=== PATIENT | male | born 1935 | race Caucasian/White ===

== ENCOUNTER 2023-04-11 09:00 | Outpatient (OUT) | payer MEDICARE, SELFPAY ==
[2023-04-11 09:05] VITALS: BP 134/82; PULSE 68; RESP 18; TEMP 36.7; O2SAT 100
[2023-04-11] MEDS: MITOMYCIN 40 MG in WATER FOR INJECTION,STERILE 20 ML 20 MG INTRAVESIC (09:16)
--- NOTE | 2023-04-11 09:40 | PC.NURSE ---
0905: Patient is here for Mitomycin instillation, he has tolerated these well in the past and denies any concerns or issues today. 0930: Mitomycin instilled and tolerated Saldaña cath insertion well without difficulty. Will have patient turn every 15 minutes as ordered.
[2023-04-11 11:27] VITALS: BP 165/81; PULSE 68; RESP 18; O2SAT 98
--- NOTE | 2023-04-11 11:28 | PC.NURSE ---
Patient tolerated mitomycin well without any complaints. Saldaña cath was removed without difficulty. Vitals obtained and stable. Patient discharged home.
== END 2023-04-11 11:28 | disposition home or self-care (01) ==
LOC: INF 05-09 15:15
PROVIDERS: PCP Internal Medicine; Visit Provider Urology
DX: Z85.51 Personal history of malignant neoplasm of bladder (principal)
CPT/HCPCS: 51700; 51702; J9280

== ENCOUNTER 2023-04-22 03:27 | Emergency (ER) | payer MEDICARE, SELFPAY ==
[2023-04-22] VITALS (39 sets, daily range): BP systolic 122–172; BP diastolic 67–94; PULSE 61–85; RESP 0–25; O2SAT 90–100; BMI 26.4
--- NOTE | 2023-04-22 03:37 | ED_ITS ---
HPI - Chest Pain General Chief Complaint: Chest Pain Stated Complaint: chest pain Time Seen by Provider: 04/22/23 03:33 History of Present Illness HPI narrative: patient presents complaining of chest pain that started around 3pm. Denies history of heart disease. No associated nausea or dyspnea. Drove himself to the hospital. no diaphoresis or light headiness. States pain 02/27 complaint: Reports chest pain Related Data Home Medications Medication Instructions Recorded Confirmed losartan 25 mg tablet 25 mg PO DAILY 04/22/23 04/22/23 tamsulosin 0.4 mg capsule 0.4 mg PO DAILY 04/22/23 04/22/23 terbinafine HCl 250 mg tablet 250 mg PO DAILY 04/22/23 04/22/23 Allergies Allergy/AdvReac Type Severity Reaction Status Date / Time No Known Drug Allergies Allergy Verified 04/22/23 03:34 Review of Systems ROS Status of ROS 10 or more systems reviewed and unremarkable except as noted in history and below Cardiovascular Reports: chest pain [facility] Medical History (Updated 04/22/23 @ 05:49 by José Manuel Hayes MD) Surgical History (Updated 04/22/23 @ 04:00 by Dhaval Callejas) Exam Constitutional Vital Signs - 24 hr 04/22/23 03:30 04/22/23 03:28 04/22/23 03:34 Pulse Rate 75 67 Pulse Rate [Monitor] 73 Respiratory Rate 12 13 12 Blood Pressure 172/87 H 163/85 H Blood Pressure [Left Arm] 172/87 H Pulse Oximetry 100 Oxygen Delivery Method Room Air 04/22/23 03:41 04/22/23 03:50 04/22/23 03:51 Pulse Rate 69 75 83 Pulse Rate [Monitor] Respiratory Rate 15 13 18 Blood Pressure 145/77 H Blood Pressure [Left Arm] Pulse Oximetry 100 Oxygen Delivery Method 04/22/23 04:01 04/22/23 04:11 04/22/23 04:20 Pulse Rate 85 70 67 Pulse Rate [Monitor] Respiratory Rate 20 14 7 L Blood Pressure 140/82 H 158/87 H 147/82 H Blood Pressure [Left Arm] Pulse Oximetry Oxygen Delivery Method 04/22/23 04:30 04/22/23 04:40 04/22/23 04:50 Pulse Rate 63 66 63 Pulse Rate [Monitor] Respiratory Rate 0 L 7 L 17 Blood Pressure 144/80 H 133/71 H 122/70 H Blood Pressure [Left Arm] Pulse Oximetry Oxygen Delivery Method 04/22/23 05:00 04/22/23 05:10 04/22/23 05:20 Pulse Rate 61 62 68 Pulse Rate [Monitor] Respiratory Rate 16 4 L 22 Blood Pressure 130/72 H 133/73 H 132/71 H Blood Pressure [Left Arm] Pulse Oximetry Oxygen Delivery Method 04/22/23 05:30 Pulse Rate 72 Pulse Rate [Monitor] Respiratory Rate 15 Blood Pressure 140/69 H Blood Pressure [Left Arm] Pulse Oximetry Oxygen Delivery Method Common normals: no apparent distress, oriented x3, no limitations, healthy appearing, alert and well nourished [facility] Common normals: normocephalic and head/scalp atraumatic Eye Common normals: EOMs intact bilaterally and conjunctivae normal Respiratory Common normals: normal respiratory effort, no retractions, no use of accessory muscles and clear to auscultation bilaterally Cardio Common normals: regular rate, regular rhythm, S1 normal heart sound and S2 normal heart sound GI Common normals: Normal to inspection, nondistended, normoactive bowel sounds present, soft to palpation and non-tender Extremity Common normals: normal to inspection and full ROM Neuro Common normals: oriented x3, CN's II-XII intact bilaterally, moves all extremities and no focal motor deficits Psych Appearance: grossly normal Course Vital Signs Vital signs: Vital Signs Pulse Rate 75 04/22/23 03:28 Respiratory Rate 13 04/22/23 03:28 Blood Pressure 172/87 H 04/22/23 03:28 Pulse Rate 72 04/22/23 05:30 Respiratory Rate 15 04/22/23 05:30 Blood Pressure 140/69 H 04/22/23 05:30 Pulse Oximetry 100 04/22/23 03:41 Oxygen Delivery Method Room Air 04/22/23 03:30 MDM - Chest Pain MDM Narrative Medical decision making narrative: patient presents complaining of chest pain. States pain started around 3AM. Pain not associated with nausea, dyspnea or diaphoresis. He drove himself to the hospital because he was not getting better. Denies past history of CAD. pain 02/27. EKG with early repolarization changes II,III,AvF. Did compare to EKG from 2019. EKG demonstrated changes of early repolarization in exact same leads but more prominent now on new EKG. More subtle older EKG. Pain treated with NTG SL x1 and morphine and improved. First troponin returned elevated. ASA and heparin bolus and gtt ordered. Discussed with hospitalist at [facility] and patient is accepted for admission patient and his son informed of the results and transfer plan Lab Data Labs: Lab Results 04/22/23 Range/Units 03:31 WBC 6.7 (4.0-11.0) 10^3/uL RBC 4.82 (4.70-6.10) 10^6/uL Hgb 14.3 (14.0-18.0) g/dL Hct 43.8 (42.0-54.0) % MCV 90.9 (80.0-94.0) fL MCH 29.7 (25.9-34.0) pg MCHC 32.6 (29.9-35.2) g/dL RDW 12.9 (11.0-15.0) % Plt Count 235 (150-450) 10^3/uL MPV 9.3 L (9.5-13.5) fL Neut % (Auto) 40.0 L (43.0-75.0) % Lymph % (Auto) 36.6 (20.5-60.0) % [place] % (Auto) 14.3 H (1.7-12.0) % Eos % (Auto) 8.2 H (0.9-7.0) % Baso % (Auto) 0.6 (0.2-2.0) % Neut # (Auto) 2.7 (1.4-6.5) 10^3/uL Lymph # (Auto) 2.5 (1.2-3.8) 10^3/uL [place] # (Auto) 1.0 H (0.3-0.8) 10^3/uL Eos # (Auto) 0.6 (0.0-0.7) 10^3/uL Baso # (Auto) 0.0 (0.0-0.1) 10^3/uL Abs Immat Gran (auto) 0.02 (0.00-0.03) 10^3/uL Imm/Tot Granulo (auto) 0.3 (0.0-0.5) % PT 10.2 (9.0-11.6) sec INR 0.96 APTT 27.0 (22.3-36.2) sec D-Dimer 0.32 (<=0.59) mg/L FEU Sodium 140 (136-145) mmol/L Potassium 4.0 (3.5-5.1) mmol/L Chloride 104 (98-107) mmol/L Carbon Dioxide 23.7 (21.0-32.0) mmol/L Anion Gap 16.3 BUN 33.0 H (7.0-18.0) mg/dL Creatinine 1.33 H (0.70-1.30) mg/dL Est GFR ( Amer) >60 (>=60) Est GFR (Non-Af Amer) 51 L (>=60) BUN/Creatinine Ratio 24.8 Glucose 97 (74-106) mg/dL Calcium 9.2 (8.5-10.1) mg/dL Troponin I High Sens 643.5 H* (4.0-76.1) pg/mL NT-Pro-B Natriuret Pep 132.0 (<=1800.0) pg/mL Ethanol Quant <3 mg/dL Discharge Plan Discharge Chief Complaint: Chest Pain Clinical Impression: Non-ST elevation (NSTEMI) myocardial infarction Patient Disposition: Xfer Acute Care Hospital Discharge Location: [facility] Discharge location: [facility] Mode of Transportation: EMS
--- NOTE | 2023-04-22 03:39 | XR_ITS ---
The [address] [address] Patient Name: JANIE KONG MRN: [id number] date: 1935 Sex: M Assigned Patient Location: ED.MAIN Current Patient Location: ED.MAIN Accession/Order Number: [id number] Exam Date: 04/22/2023 04:00 Report Date: 04/22/2023 05:37 At the request of: ELIAZAR CASTLE Procedure: XR chest 1V EXAM: XR chest 1V HISTORY: chest pain COMPARISON: 06/02/2020. TECHNIQUE: Chest X-ray, 1 view. FINDINGS: Support devices: None. Lungs/pleura: No radiographic evidence of edema or infiltrate. No consolidation, effusion, or pneumothorax. Heart and mediastinum: Stable contours compared to prior examination. Bones: No acute abnormality identified. Bilateral osteoarthritis of the glenohumeral joints. IMPRESSION: No active disease. Electronically authenticated by: NAUN ARNOLD Date: 04/22/2023 05:37
--- NOTE | 2023-04-22 03:39 | ECG_ITS ---
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
[2023-04-22] MEDS: MORPHINE SULFATE 4 MG/ML VIAL IV (04:04)
[2023-04-22] MEDS: NITROGLYCERIN 0.4 MG TAB.SUBL PO (04:04)
--- NOTE | 2023-04-22 04:04 | PC.NURSE ---
patient drove himself into the ambulance bay stated he was having a heart attack. patient placed in room 4. Vitals obtained, iv started with labs drawn, ekg obtained and physician notified. patient became upset with the BP cuff and took it off. He said he took it off be its to tight and thats not how it is supposed to work. when Xray arrived patient called out and is upset states im not getting the right attention, someone told me this was a [facility] you guys cant help me he requested his cell phone to call someone to take him to [place]. patient was handed phone and nurse left the room.
[2023-04-22 04:26] LABS: Basophils Percent Auto 0.6 % (0.2-2.0); Eosinophils Absolute Auto 0.6 10^3/uL (0.0-0.7); Eosinophils Percent Auto 8.2 % (0.9-7.0); Hematocrit 43.8 % (42.0-54.0); Hemoglobin 14.3 g/dL (14.0-18.0); Immature Granulocytes Abs Auto 0.02 10^3/uL (0.00-0.03); Immature Granulocytes Pct Auto 0.3 % (0.0-0.5); Lymphocytes Absolute Auto 2.5 10^3/uL (1.2-3.8); Lymphocytes Percent Auto 36.6 % (20.5-60.0); Mean Corpuscular HGB Conc 32.6 g/dL (29.9-35.2); Mean Corpuscular Hemoglobin 29.7 pg (25.9-34.0); Mean Corpuscular Volume 90.9 fL (80.0-94.0); Mean Platelet Volume 9.3 fL (9.5-13.5); Monocytes Percent Auto 14.3 % (1.7-12.0); Neutrophils Absolute Auto 2.7 10^3/uL (1.4-6.5); Platelet Count 235 10^3/uL (150-450); Red Blood Count 4.82 10^6/uL (4.70-6.10); Red Cell Distribution Width 12.9 % (11.0-15.0); White Blood Count 6.7 10^3/uL (4.0-11.0)
[2023-04-22 04:45] LABS: Anion Gap 16.3; BUN Creatinine Ratio 24.8; Calcium 9.2 mg/dL (8.5-10.1); Carbon Dioxide 23.7 mmol/L (21.0-32.0); Chloride 104 mmol/L (98-107); Estimated GFR (African America >60 (>=60); Estimated GFR (Non-African Ame 51 (>=60); Glucose 97 mg/dL (74-106); Sodium 140 mmol/L (136-145)
[2023-04-22 04:47] LABS: Ethanol <3 mg/dL
[2023-04-22 04:48] LABS: Troponin I High Sensitivity 643.5 pg/mL (4.0-76.1)
[2023-04-22 04:51] LABS: D Dimer 0.32 mg/L FEU (<=0.59)
[2023-04-22 05:21] LABS: INR 0.96; Prothrombin Time 10.2 sec (9.0-11.6)
[2023-04-22] MEDS: HEPARIN SODIUM (PORCINE) 5,000 UNIT/ML VIAL 3300 UNIT IV (05:21)
[2023-04-22] MEDS: HEPARIN SODIUM,PORCINE/D5W 25,000 UNIT/500 ML IV.SOLN 20.031 UNIT IV (05:22)
== END 2023-04-22 09:37 | disposition short-term general hospital (02) ==
PROVIDERS: Emergency Provider Internal Medicine; PCP Internal Medicine
DX: I21.4 Non-ST elevation (NSTEMI) myocardial infarction (principal); Z79.899 Other long term (current) drug therapy
CPT/HCPCS: 36415; 71045; 80048; 80320; 83880; 84484; 85025; 85378; 85610; 85730; 93005; 96374; 96375; 99285

== ENCOUNTER 2023-07-09 06:42 | Outpatient (OUT) | payer MEDICARE, SELFPAY ==
[2023-07-09 07:31] LABS: Basophils Absolute Auto 0.1 10^3/uL (0.0-0.1); Basophils Percent Auto 0.9 % (0.2-2.0); Eosinophils Absolute Auto 0.4 10^3/uL (0.0-0.7); Eosinophils Percent Auto 7.6 % (0.9-7.0); Hematocrit 39.1 % (42.0-54.0); Hemoglobin 12.8 g/dL (14.0-18.0); Immature Granulocytes Abs Auto 0.01 10^3/uL (0.00-0.03); Immature Granulocytes Pct Auto 0.2 % (0.0-0.5); Lymphocytes Percent Auto 17.1 % (20.5-60.0); Mean Corpuscular HGB Conc 32.7 g/dL (29.9-35.2); Mean Corpuscular Volume 91.6 fL (80.0-94.0); Mean Platelet Volume 8.9 fL (9.5-13.5); Monocytes Absolute Auto 0.8 10^3/uL (0.3-0.8); Monocytes Percent Auto 14.8 % (1.7-12.0); Neutrophils Absolute Auto 3.4 10^3/uL (1.4-6.5); Neutrophils Percent Auto 59.4 % (43.0-75.0); Platelet Count 183 10^3/uL (150-450); Red Blood Count 4.27 10^6/uL (4.70-6.10); Red Cell Distribution Width 13.2 % (11.0-15.0); White Blood Count 5.7 10^3/uL (4.0-11.0)
[2023-07-09 08:32] LABS: Alanine Aminotransferase 20 U/L (16-63); Anion Gap 8.7; BUN Creatinine Ratio 19.2; Calcium 8.8 mg/dL (8.5-10.1); Carbon Dioxide 27.2 mmol/L (21.0-32.0); Chloride 105 mmol/L (98-107); Chol HDL Ratio 1.8; Cholesterol 112 mg/dL (<=200); Creatine Kinase 36 U/L (39-308); Estimated GFR (African America >60 (>=60); Estimated GFR (Non-African Ame >60 (>=60); Glucose 88 mg/dL (74-106); HDL Cholesterol 61 mg/dL (40-60); Potassium 3.9 mmol/L (3.5-5.1); Sodium 137 mmol/L (136-145); Triglycerides 42 mg/dL (<=150); VLDL CHOLESTEROL 8.4 mg/dL
== END 2023-07-09 06:43 | disposition home or self-care (01) ==
LOC: LAB 06:42
PROVIDERS: PCP Internal Medicine; Visit Provider Internal Medicine
DX: E78.00 Pure hypercholesterolemia, unspecified (principal); I10 Essential (primary) hypertension; I25.5 Ischemic cardiomyopathy; Z79.899 Other long term (current) drug therapy
CPT/HCPCS: 36415; 80048; 80061; 82550; 84460; 85025

== ENCOUNTER 2023-08-06 16:44 | Outpatient (OUT) | payer MEDICARE, SELFPAY ==
[2023-08-06 17:06] LABS: Bilirubin Urine NEGATIVE (NEGATIVE); Blood Urine SMALL (NEGATIVE); Clarity Urine CLEAR (CLEAR); Color Urine LT. YELLOW (YELLOW); Glucose Urine UA NEGATIVE (NEGATIVE); Ketones Urine NEGATIVE (NEGATIVE); Leukocyte Esterase Urine TRACE (NEGATIVE); Nitrite Urine NEGATIVE (NEGATIVE); Protein Urine NEGATIVE (NEG/TRACE); Specific Gravity Urine 1.025 (1.005-1.025); Urobilinogen Urine 0.2 EU/dL (0.2-1.0); pH Urine 5.5 (5.0-9.0)
[2023-08-06 17:20] LABS: Bacteria Urine TRACE #/HPF (NONE SEEN); Cast Seen? NONE SEEN #/LPF (NONE SEEN); Crystals Seen? None Seen #/HPF (None Seen); Mucus Urine NONE SEEN (NONE SEEN); Squamous Epithelial Cell Urine NONE SEEN #/LPF (NONE/RARE)
== END 2023-08-06 16:45 | disposition home or self-care (01) ==
PROVIDERS: PCP Internal Medicine; Visit Provider Internal Medicine
DX: R30.0 Dysuria (principal)
CPT/HCPCS: 81001; 87086

== ENCOUNTER 2023-08-15 07:42 | Emergency (ER) | payer MEDICARE, SELFPAY ==
[2023-08-15 07:45] VITALS: BP 120/80; PULSE 70; RESP 20; TEMP 37.2; O2SAT 97; BMI 26.5
--- NOTE | 2023-08-15 07:57 | ED.SKABFB1 ---
HPI - Skin/Abscess/Foreign Bdy General Chief complaint: Skin/Abscess/Foreign Body Stated complaint: LOWER EXTREMITY PAIN AND SWELLING Time Seen by Provider: 08/15/23 07:49 Source: patient Mode of arrival: walk-in Limitations: no limitations History of Present Illness HPI narrative: patient complains of painful area at the sacrum/coccyx that began 3 weeks ago. He has seen Dr Art twice for this and he told me that he was instructed to keep an eye on it . Nothing prescribed. He has been applying Calmoseptine to the area. 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 He wears pads and changes them regularly but still has stool that sits in the area. No systemic symptoms such as fever or vomiting. Related Data Home Medications Medication Instructions Recorded Confirmed losartan 25 mg tablet 25 mg PO DAILY 04/22/23 04/22/23 tamsulosin 0.4 mg capsule 0.4 mg PO DAILY 04/22/23 04/22/23 terbinafine HCl 250 mg tablet 250 mg PO DAILY 04/22/23 04/22/23 Previous Rx's Medication Instructions Recorded cephalexin 500 mg capsule 500 mg PO QID 7 days #28 caps 08/15/23 sulfamethoxazole 800 1 tab PO BID 7 days #14 tabs 08/15/23 mg-trimethoprim 160 mg tablet (Bactrim DS) tramadol 50 mg tablet 50 mg PO Q8H PRN pain #14 tabs 08/15/23 Allergies Allergy/AdvReac Type Severity Reaction Status Date / Time No Known Drug Allergies Allergy Verified 04/22/23 03:34 [facility] Medical History (Updated 08/15/23 @ 07:54 by Gurpreet Callejas) BPH (benign prostatic hyperplasia) ?N40.0 - Benign prostatic hyperplasia without lower urinary tract symptoms (ICD-10) Chronic kidney disease ?N18.9 - Chronic kidney disease, unspecified (ICD-10) Colon cancer ?C18.9 - Malignant neoplasm of colon, unspecified (ICD-10) High cholesterol ?E78.00 - Pure hypercholesterolemia, unspecified (ICD-10) Osteoarthritis ?M19.90 - Unspecified osteoarthritis, unspecified site (ICD-10) PVD (peripheral vascular disease) ?I73.9 - Peripheral vascular disease, unspecified (ICD-10) Skin cancer ?C44.90 - Unspecified malignant neoplasm of skin, unspecified (ICD-10) Trigeminal neuralgia ?G50.0 - Trigeminal neuralgia (ICD-10) Surgical History (Updated 04/22/23 @ 04:00 by Dhaval Callejas) History of colonoscopy ?Z98.890 - Other specified postprocedural states (ICD-10) S/P cataract extraction and insertion of intraocular lens ?Z98.49 - Cataract extraction status, unspecified eye (ICD-10) ?Z96.1 - Presence of intraocular lens (ICD-10) S/P cystoscopy ?Z98.890 - Other specified postprocedural states (ICD-10) Exam Narrative Exam Narrative: Nurses notes and vital signs reviewed and patient is not hypoxic. afebrile General: Well-appearing and in no apparent distress. Skin: Warm, dry, no pallor noted. Cardiovascular: normal peripheral perfusion. Respiratory: No accessory muscle use or respiratory distress. Back/Buttocks: No midline lumbar vertebral tenderness. At coccyx there is erythema and mild swelling with a small open area that is draining a small amount of purulent material. No palpable abscess is noted - likely due to the drainage of material. Area of erythema measures 3cm x 2cm and there is no proximal streaking. A moderate amount of stool is noted in the gluteal folds. Musculoskeletal: normal ROM Neurological: A&O x4. No cranial nerve dysfunction observed. No truncal ataxia. Moves all extremities. Sensation intact. Psychiatric: Cooperative and interactive. Normal mood and affect. Constitutional Vital Signs, click to edit/add: Last Vital Signs Temp 98.9 F 08/15/23 07:45 Pulse 70 08/15/23 07:45 Resp 20 08/15/23 07:45 BP 120/80 08/15/23 07:45 Pulse Ox 97 08/15/23 07:45 Course Vital Signs Vital signs: Vital Signs Temperature 98.9 F 08/15/23 07:45 Pulse Rate 70 08/15/23 07:45 Respiratory Rate 20 08/15/23 07:45 Blood Pressure 120/80 08/15/23 07:45 Pulse Oximetry 97 08/15/23 07:45 Temperature 98.9 F 08/15/23 07:45 Pulse Rate 70 08/15/23 07:45 Respiratory Rate 20 08/15/23 07:45 Blood Pressure 120/80 08/15/23 07:45 Pulse Oximetry 97 08/15/23 07:45 MDM - Skin/Abscess/Foreign Bdy MDM Narrative Medical decision making narrative: the patient was discharged home with prescriptions for tramadol for pain - he said he cannot sit and it is painful to lay on his back at night to try and sleep = and both Keflex and Bactrim DS for the cellulitis. He was given information on sitz baths and I encouraged him to do his best to keep the anal area clean, which is difficult considering his condition. He was encouraged to see his PCP for follow up. ED return if he worsens. Discharge Plan Discharge Chief Complaint: Skin/Abscess/Foreign Body Clinical Impression: Cellulitis Patient Disposition: Home, Self-Care Time of Disposition Decision: 07:54 Mode of Transportation: Private Vehicle Prescriptions / Home Meds: New sulfamethoxazole-trimethoprim [Bactrim DS] 800-160 mg tablet 1 tab PO BID 7 Days Qty: 14 0RF tramadol 50 mg tablet 50 mg PO Q8H PRN (Reason: pain) Qty: 14 0RF cephalexin 500 mg capsule 500 mg PO QID 7 Days Qty: 28 0RF No Action terbinafine HCl 250 mg tablet 250 mg PO DAILY tamsulosin 0.4 mg capsule 0.4 mg PO DAILY losartan 25 mg tablet 25 mg PO DAILY Instructions: Cellulitis (ED), Warm Compress or Soak (ED) Stand Alone Forms: Portal Instructions Referrals: Nestor Art DO [Primary Care Provider] - 1 week
== END 2023-08-15 08:06 | disposition home or self-care (01) ==
PROVIDERS: Emergency Provider Emergency Medicine; PCP Internal Medicine
DX: L03.319 Cellulitis of trunk, unspecified (principal); N40.0 Benign prostatic hyperplasia without lower urinary tract symptoms; N18.9 Chronic kidney disease, unspecified; Z85.038 Personal history of other malignant neoplasm of large intestine; E78.00 Pure hypercholesterolemia, unspecified; M19.90 Unspecified osteoarthritis, unspecified site; I73.9 Peripheral vascular disease, unspecified; Z79.899 Other long term (current) drug therapy; G50.0 Trigeminal neuralgia; Z85.828 Personal history of other malignant neoplasm of skin; Z98.890 Other specified postprocedural states; Z98.49 Cataract extraction status, unspecified eye; Z96.1 Presence of intraocular lens
CPT/HCPCS: 99283

== ENCOUNTER 2023-10-09 10:34 | Emergency (ER) | payer MEDICARE, SELFPAY ==
[2023-10-09 10:38] VITALS: BP 126/98; PULSE 94; RESP 18; TEMP 36.8; O2SAT 98; BMI 25.1
--- OUTSIDE RECORDS SUMMARY | 2023-10-09 10:45 | XMS_ITS | CCD ---
Author Name Unknown Address [address] [place] [address] Organization [facility] Care Team Providers Care Rehabilitation Services Director Name Role Phone ADRIEL RIOS Unavailable NESTOR Vela Unavailable ADRIEL Malik Unavailable Unavailable NESTOR ESTRELLA Unavailable NESTOR Vela Primary Care Physician BRANDON ESTRELLA Primary Care Unavailable ALZAETYLER REECEIL Referring Unavailable LUKE LAN Attending Unavailable HANG OHARA Referring Unavailable BRANDON ESTRELLA Primary Care Unavailable SAHIL CAMACHO Admitting Unavailable CONSULT, SURGERY - GENERAL (EMERGENT) Consulting Unavailable Reid Ann Unavailable Nestor Estrella Unavailable Nestor Estrella DO Primary Care Provider AVEL CAMACHO Referring Unavailable AVEL CAMACHO Attending Unavailable NESTOR ESTRELLA Primary Care Unavailable SAMEER, DR MCFADDEN Consulting Unavailable BALL, DR MCFADDEN Attending Unavailable BALL, DR MCFADDEN Admitting Unavailable SAMEER, DR MCFADDEN Primary Care Unavailable SAMEER, DR MCFADDEN Consulting Unavailable SAMEER, DR MCFADDEN Primary Care Unavailable SAMEER, DR MCFADDEN Attending Unavailable SAMEER, DR MCFADDEN Admitting Unavailable LUIS, DR AUBREY Barclay Consulting Unavailable DIETRICH ., DR ESPINAL Attending Unavailable REQUEST, NONE LISTED Primary Care Unavaila ble DIETRICH ., DR ESPINLA Consulting Unavailable DIETRICH ., DR ESPINAL Admitting Unavailable SAMEER, DR MCFADDEN Consulting Unavailable SAMEER, DR MCFADDEN Attending Unavailable SAMEER, DR MCFADDEN Admitting Unavailable SAMEER, DR MCFADDEN Primary Care Unavailable LEV, DR HANG Palacios Attending Unavailabl e REINECK, DR HANG Palacios Admitting Unavailabl e REQUEST, DR NONE LISTED Primary Care Unavaila ble LEV, DR HANG Palacios Consulting Unavailabl e ANKIT DANIEL Consulting Unavailable MANAV PARK Consulting Unavailable DIETRICH ., DR ESPINAL Attending Unavailable REQUEST, DR NONE LISTED Primary Care Unavaila ble DIETRICH ., DR ESPINAL Admitting Unavailable LISETH ., TASHA Attending Unavailable LISETH ., TASHA Admitting Unavailable BALL, DR MCFADDEN Primary Care Unavailable LISETH ., TASHA Consulting Unavailable DIETRICH ., DR ESPINAL Attending Unavailable REQUEST, DR NONE LISTED Primary Care Unavaila ble DIETRICH ., DR ESPINAL Admitting Unavailable BALL, DR MCFADDEN Consulting Unavailable BALL, DR MCFADDEN Attending Unavailable BALL, DR MCFADDEN Admitting Unavailable REQUEST, DR NONE LISTED Primary Care Unavaila ble BALL, DR MCFADDEN Consulting Unavailable BALL, DR MCFADDEN Attending Unavailable REQUEST, DR NONE LISTED Primary Care Unavaila ble BALL, DR MCFADDEN Admitting Unavailable BALL, DR MCFADDEN Primary Care Unavailable BALL, DR MCFADDEN Attending Unavailable BALL, DR MCFADDEN Admitting Unavailable BALL, DR MCFADDEN Consulting Unavailable KLIPPER, AUBREY Consulting Unavailable BALL, DR MCFADDEN Consulting Unavailable BALL, DR MCFADDEN Attending Unavailable BALL, DR MCFADDEN Primary Care Unavailable BALL, DR MCFADDEN Admitting Unavailable DIETRICH ., DR ESPINAL Consulting Unavailable DIETRICH ., DR ESPINAL Attending Unavailable REQUEST, DR NONE LISTED Primary Care Unavaila ble DIETRICH ., DR ESPINAL Admitting Unavailable DIETRICH ., DR ESPINAL Admitting Unavailable DIETRICH ., DR ESPINAL Consulting Unavailable DIETRICH ., DR ESPINAL Attending Unavailable BALL, DR MCFADDEN Primary Care Unavailable DIETRICH ., DR ESPINAL Consulting Unavailable DIETRICH ., DR ESPINAL Attending Unavailable REQUEST, DR NONE LISTED Primary Care Unavaila ble DIETRICH ., DR ESPINAL Admitting Unavailable BALL, DR MCFADDEN Referring Unavailable DIETRICH ., DR ESPINAL Admitting Unavailable DIETRICH ., DR ESPINAL Attending Unavailable BALL, DR MCFADDEN Primary Care Unavailable DIETRICH ., DR ESPINAL Consulting Unavailable DIETRICH ., DR ESPINAL Consulting Unavailable DIETRICH ., DR ESPINAL Attending Unavailable REQUEST, DR NONE LISTED Primary Care Unavaila ble DIETRICH ., DR ESPINAL Admgeeta Unavailable DIETRICH ., DR ESPINAL Consulting Unavailable DIETRICH ., DR ESPINAL Attending Unavailable REQUEST, NONE LISTED Primary Care Unavaila ble DIETRICH ., DR ESPINAL Admitting Unavailable DIETRICH ., DR ESPINAL Consulting Unavailable DIETRICH ., DR ESPINAL Attending Unavailable REQUEST, DR NONE LISTED Primary Care Unavaila ble DIETRICH ., DR ESPINAL Admitting Unavailable Fidone, Grace Em Consulting Unavailable Ball, Nestor Primary Care Unavailable Alahmad, Alaa Admitting Unavailable Alahmad, Alaa Attending Unavailable Chan, Tarek Consulting Unavailable Susanne, Kimberly Consulting Unavailable Alireza, Adriel Espinal Consulting Unavail able Rashida Gould Consulting Unavailable Norman, Peyton Consulting Unavailable Lorna, Misty L Consulting Unavailable Endy Arevalo Consulting Unavailab martha Dillon, Lucio Franz Consulting Unavailab Ko Piper Consulting Unavailable Christy White Consulting Unavailable Hannah Abraham Consulting Unavailable DO Nestor Estrella Primary Care Provider MD Kiki Motta Admit Provider MD Kiki Motta Attending Provider MD Grace West Other Provider MD Raheem Giles Other Provider MD Kimberly Skinner Other Provider MD Adriel Lay Other Provider JUSTIN Gould Other Provider Unavailable MD Peyton Norman Other Provider Lorna [facility]- Misty Soriano Other Provider MD Endy Arevalo Other Provider MD Lucio Dillon Other Provider DO Ko Morgan Other Provider MIGUEL White Other Provider MD Hannah Abraham Other Provider [phone] Nestor Estrella Unavailable Unavailable Unavailable Dr. Adriel Morgan Attending Unava ilDr. Nestor [facility] Suzievai Kylie Soares Attending Unavailable DIETRICH, Kylie R Attending Unavailable DIETRICH, Kylie R Attending Unavailable DIETRICH, Kylie R Attending Unavailable DIETRICH, Kylie R Attending Unavailable DIETRICH, Kylie R Attending Unavailable DIETRICH, Kylie R Attending Unavailable DIETRICH, Kylie R Attending Unavailable DIETRICH, Kylie Restrepo Attending Unavailable Marina Hooper Attending Unavailable DIETRICH, Kylie R Attending Unavailable BRANDO BARRAGAN Attending Unavailable DIETRICH, Kylie R Attending Unavailable DIETRICH, Kylie R Referring Unavailable DIETRICH, Kylie R Admitting Unavailable DIETRICH, Kylie R Attending Unavailable DIETRICH, yKlie Restrepo Admitting Unavailable DIETRICH, Kylie R Attending Unavailable Kylie DIETRICH Attending Unavailable Kylie DIETRICH Attending Unavailable Kylie DIETRICH Attending Unavailable Kylie DIETRICH Attending Unavailable Sameer, Dr. Nestor Lovelace Primary Care Marcella Morgan, Dr. Adriel Pierre Referring Raegan Morgan, Dr. Adriel Pierre Attending Raegan Estrella, Dr. Nestor Lovelace Primary Care Marcella Morgan, Dr. Adriel Pierre Attending Raegan Estrella, Dr. Nestor Lovelace [facility] Marcella weeks Asaad, Imad Unavailable Allergies Allergy Classification Reported Allergen(s) Allergy Type Date of Onset Reaction(s) Facility (3 sources) Amoxicillin; Translations: [AMOXICILLIN] Drug Allergy 04-28-2013 Other: See Comments [facility] Medications Current Medications Medication Drug Class(es) Dates Sig (Normalized) Sig (Original) aspirin 81 mg delayed release oral tablet (20 sources) Platelet Aggregation Inhibitor, Nonsteroidal Anti-inflammatory Drug Start: 05-07-2023 take 1 tablet by mouth every twenty-four hours Aspirin 81 81 MG 1 tablet Orally Once a day Apr, Active Start: 05-07-2023 take 1 tablet by mouth once da marci Aspirin 81 81 MG 1 tablet Orally Once a day Apr, Active Start: 04-22-2023 take 81 mg by mouth once daily Aspirin Active 81 MG PO Daily 90 April 22, 2023 12:00am take 1 tablet by dianne th every twenty-four hours Aspirin 325 MG 1 tablet Orally Once a day Not-Taking/PRN beta prostate (10 sources) Start: 09-01-2021 beta prostate beta prostate Start Date: 09/01/21 Status: Ordered cefdinir 300 mg oral capsule (10 sources) Cephalosporin Antibacterial Start: 06-14-2020 cefdinir 300 mg Cap See Instructions, Refills(s) 0 Start Date: 06/14/20 Status: Ordered clopidogrel 75 mg oral tablet (16 sources) P2Y12 Platelet Inhibitor Start: 05-23-2023 take 1 tablet by mouth every twenty-four hours Clopidogrel Bisulfate 75 MG 1 tablet Orally Once a day May, Active Start: 05-23-2023 Clopidogrel Bi sulfate 75 MG Oral Tablet take 8 tablets ( 600mg) x one dose only, then take one tablet daily Quantity: 98 Refills: 3 Ordered: 3-Aug-2023 Adriel Morgan DO Start : 23-May-2023 Active new start, replaces Brilinta docusate sodium 100 mg oral capsule (20 sources) take 1 capsule by [facility] every twenty-four hours Stool Softener 100 MG 1 capsule as needed Orally Once a day Active take 1 tablet by mouth once elian y Stool Softener 100 MG Oral Tablet TAKE 1 TABLET DAILY DIRECTED. Quantity: 0 Refills: 0 Ordered: 02-May-2023 DO Active Comment on above: Take 100 mg by mouth as needed for constipation. doxycycline hyclate 100 mg oral capsule (5 sources) Tetracycline-class Drug Start: 08-21-2023 take 1 capsule by mouth every twenty-four hours Doxycycline Hyclate 100 MG 1 capsule Orally Once a day for 14 days Aug, Active DuoDERM CGF Dressing - (5 sources) Start: 08-21-2023 DuoDERM CGF Dressing - as directed Externally daily for 30 days Aug, Active losartan potassium 25 mg oral tablet (20 sources) Angiotensin 2 Receptor Myra Start: 04-22-2023 take 25 mg by mouth at bedtime Losartan Active 25 MG PO Bedtime April 22, 2023 12:00am losartan potassi um (LOSARTAN ORAL) Take by mouth once daily. 0 Active Comment on above: Take by mouth once d aily. nitroglycerin 0.4 mg sublingual tablet (1 source) Nitrate Vasodilator Start: 04-22-2023 Nitroglycerin Active 0.4 MG SUBLINGUAL Q5M April 22, 2023 12:00am do not exceed 3 doses per episode rosuvastatin calcium 40 mg oral tablet (14 sources) HMG-CoA Reductase Inhibitor Start: 06-07-2023 take 1 tablet by mouth every twenty-four hours Rosuvastatin Calcium 40 MG 1 tablet Orally Once a day for 30 days May, Active tamsulosin hydrochloride 0.4 mg oral capsule (20 sources) alpha-Adrenergic Myra Start: 11-18-2020 take 1 capsule by mouth once daily in the evening Tamsulosin HCl 0.4 MG 1 capsule Orally Once a day, in evening Oct, Active terbinafine 250 mg oral tablet (5 sources) Allylamine Antifungal Start: 04-12-2023 take 250 mg by mouth at bedtime Terbinafine Hcl Active 250 MG PO Bedtime April 22, 2023 12:00am Start: 04-12-2023 Terbinafine HC l 1 % 1 application Externally twice daily for 14 days Mar, Active ticagrelor 90 mg oral tablet (6 sources) Start: 04-22-2023 take 1 tablet by mouth every twelve hours Brilinta 90 MG 1 tablet Orally Twice a day Apr, Active triamcinolone acetonide 1 mg/ml topical cream (20 sources) Corticosteroid Start: 06-07-2023 Triamcinolone Acetonide 0.1 % 1 application Externally twice daily for 7 days May, Active Start: 06-07-2023 Triamcinolone Acetonide 0.1 % 1 application Externally twice daily for 7 days May, Active Start: 11-26-2022 Triamcinolone Acetonide 0.5 % 1 application Externally two times daily for 30 days Nov, Active Start: 11-26-2022 Triamcinolone Acetonide 0.5 % 1 application Externally two times daily for 30 days Nov, Active Completed/Discontinued Medications Medication Drug Class(es) Dates Sig (Normalized) Sig (Original) albuterol 0.83 mg/ml inhalation solution (20 sources) beta2-Adrenergic Agonist Albuterol Sulfate (2.5 MG/3ML) 0.083% 3 mL as needed Inhalation every 6 hrs Not-Taking/PRN Albuterol Sulfat e (2.5 MG/3ML) 0.083% 3 mL as needed Inhalation every 6 hrs Not-Taking atorvastatin 80 mg oral tablet (7 sources) HMG-CoA Reductase Inhibitor Start: 05-16-2023 take 1 tablet by mouth once daily in the evening Atorvastatin Calcium 80 MG Oral Tablet TAKE 1 TABLET BY MOUTH EVERY EVENING FOR 30 DAYS Quantity: 90 Refills: 3 Ordered: 23-May-2023 Adriel Morgan DO Start : 16-May-2023 Active Start: 04-22-2023 take 1 tablet by dianne th every twenty-four hours Atorvastatin Calcium 80 MG 1 tablet Orally Once a day Apr, Active Calcium (20 sources) Phosphate Binder, Calcium Calciu m 150 MG as directed Orally Not-Taking/PRN Calcium 150 MG a s directed Orally Not-Taking carvedilol 6.25 mg oral tablet (20 sources) alpha-Adrenergic Myra, beta-Adrenergic Myra Start: 05-16-2023 take 1 tablet by mouth twice daily at mealtime Carvedilol 6.25 MG Oral Tablet TAKE 1 TABLET BY MOUTH TWICE A DAY WITH MEALS Quantity: 180 Refills: 3 Ordered: 23-May-2023 Adriel Morgan DO Start : 16-May-2023 Active Start: 05-02-2023 take 2 tablets by mo uth every twelve hours Carvedilol 6.25 MG 2 tablets with food Orally Twice a day Apr, Active Start: 05-02-2023 take 1 tablet by dianne th every twelve hours Carvedilol 25 MG 1 tablet with food Orally Twice a day for 30 days Apr, Active Start: 04-22-2023 take 6.25 mg by mout h twice daily at mealtime Carvedilol Active 6.25 MG PO Twice daily with meals April 22, 2023 12:00am cefTRIAXone (20 sources) Cephalosporin Antibacterial Start: 10-24-2014 Rocephin 500 mg Oct, 1 grm cephalexin 500 mg oral capsule (1 source) Cephalosporin Antibacterial Start: 08-19-2021 End: 04-22-2023 take 500 mg by mouth twice daily Cephalexin Discontinued 500 MG PO Twice daily 09 08August 19, 2021 12:00am April 22, 2023 11:06am ciprofloxacin 250 mg oral tablet (10 sources) Quinolone Antimicrobial Start: 12-07-2022 take 1 tablet by mouth once daily Cipro 250 mg Tab 250 mg = 1 tab(s), Oral, Daily, Take 1 tablet the day before the procedure and 1 tablet after the procedure, # 6 tab(s), Refills(s) 0, Pharmacy: [facility]/pharmacy #[id number], 178, cm, 09/01/21 10:42:00 EST, Height/Length Dosing, 78, kg, 09/01/21 10:42:00 EST, W... Start Date: 12/07/22 Status: Ordered Start: 10-26-2022 take 1 tablet by dianne th once daily Cipro 250 mg Tab 250 mg = 1 tab(s), Oral, Daily, Take 1 tablet the day before the procedure and 1 tablet after the procedure, # 2 tab(s), Refills(s) 0, Pharmacy: [facility]/pharmacy #[id number], 178, cm, 09/01/21 10:42:00 EST, Height/Length Dosing, 78, kg, 09/01/21 10:42:00 EST, W... Start Date: 10/26/22 Status: Ordered Start: 03-01-2022 take 1 tablet by dianne th once daily Cipro 500 mg Tab 500 mg = 1 tab(s), Oral, Daily, Take 1 tablet the day before the procedure and 1 tablet after the procedure, # 2 tab(s), Refills(s) 0, [id number] 178, cm, 09/01/21 10:42:00 EST, Height/Length Dosing, 78, kg, 09/01/21 10:42:00 EST, W... Start Date: 03/01/22 Status: Ordered Start: 12-07-2021 take 1 tablet by dianne th once daily Cipro 500 mg Tab 500 mg = 1 tab(s), Oral, Daily, Take 1 tablet the day before procedure and 1 tablet after the procedure, # 2 tab(s), Refills(s) 0, Pharmacy: [facility] [id number], 178, cm, 09/01/21 10:42:00 EST, Height/Length Dosing, 78, kg, 09/01/21 10:42:00 EST, We... Start Date: 12/07/21 Status: Ordered Fish Oil-DHA-EPA 1,200-144-2 16 mg cap (1 source) Fish Oil-DHA-EPA 1,200-144-216 mg cap Take by mouth once daily. 0 Active Comment on above: Take by mouth once d aily. ipratropium bromide 0.042 mg/actuat metered dose nasal spray (20 sources) Anticholinergic take 2 spray(s) nasal route three times daily as needed Ipratropium Freedom 0.06 % 2 sprays in each nostril Nasally Three times a day Not-Taking/PRN take 2 spray(s) nasa l route three times daily Ipratropium Freedom 0.06 % 2 sprays in e ach nostril Nasally Three times a day Not-Taking ondansetron 4 mg disintegrating oral tablet (1 source) Serotonin-3 Receptor Antagonist Start: 08-19-2021 End: 04-22-2023 take 4 mg by mouth every eight hours Ondansetron Discontinued 4 MG PO Q8H 9 3 August 19, 2021 12:00am April 22, 2023 11:06am 24 hr oxybutynin chloride 10 mg extended release oral tablet (20 sources) Cholinergic Muscarinic Antagonist take 1 tablet by mouth every twenty-four hours oxyBUTYnin Chloride ER 10 MG 1 tablet Orally Once a day Not-Taking/PRN Psyllium (20 sources) Psyllium Not-Taking/PRN Psyllium Not-Bobby ing Psyllium Active vitamin b12 0.1 mg oral tablet (1 source) Vitamin B12 take 2 tablets by mouth once daily cyanocobalamin (VITAMIN B-12) 100 mcg tab Take 200 mcg by mouth once daily. 0 Active Comment on above: Take 200 mcg by mout h once daily. Zinc (4 sources) take 1 tablet by dianne th once daily Zinc 50 MG 1 tablet Orally Once a day Not-Taking zinc gluconate 50 mg oral tablet (20 sources) take 1 tablet by dianne th every twenty-four hours Zinc 50 MG 1 tablet Orally Once a day Not-Taking/PRN Problems Active Problems Problem Classification Problem Date Documented Date Episodic/Chronic Abdominal pain (2 sources) Generalized abdominal pain; Translations: [Generalized abdominal pain] Onset: 11-03-19 Episodic Acute myocardial infarction (7 sources) Non-ST elevation (NSTEMI) myocardial infarction; Translations: [Myocardial infarction] Onset: 04-22-20 23 04-22-2023 Chronic Allergic reactions (20 sources) Asteatotic eczema; Translations: [Other specified dermatitis] Episodic Cancer of bladder (20 sources) Malignant tumor of urinary bladder; Translations: [Malignant neoplasm of bladder, unspecified] Onset: 01-09-20 Chronic Cancer of bladder (19 sources) Personal history of malignant neoplasm of bladder; Translations: [H/O: malignant neoplasm] Onset: 11-12-19 Episodic Cancer of colon (17 sources) Malignant tumor of colon; Translations: [Malignant neoplasm of colon, unspecified site] Onset: 12-17-19 13 04-22-2023 Chronic Cancer of colon (2 sources) Personal history of other malignant neoplasm of large intestine; Translations: [History of malignant neoplasm of colon] Onset: 01-10-20 Episodic Cardiac dysrhythmias (20 sources) Bradycardia; Translations: [Bradycardia, unspecified] Episodic Chronic kidney disease (11 sources) Chronic kidney disease; Translations: [Chronic kidney disease, unspecified] Onset: 01-10-2003-28-2020 Chronic Chronic ulcer of skin (20 sources) Pressure ulcer of sacral region, stage 1; Translations: [Skin ulcer] Chronic Complications of surgical procedures or medical care (3 sources) Postprocedural intestinal obstruction, unspecified as to partial versus complete; 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] Episodic Conditions associated with dizziness or vertigo (20 sources) Dizziness; Translations: [Dizziness and giddiness] Episodic Congestive heart failure; nonhypertensive (16 sources) Acute systolic heart failure; Translations: [Acute systolic (congestive) heart failure] Chronic Coronary atherosclerosis and other heart disease (20 sources) Coronary arteriosclerosis; Translations: [Coronary atherosclerosis of unspecified type of vessel, [place] or graft] Onset: 06-25-20 Chronic Coronary atherosclerosis and other heart disease (16 sources) Stented coronary artery; Translations: [Presence of coronary angioplasty implant and graft] Onset: 06-25-20 Episodic Deficiency and other anemia (20 sources) Chronic anemia; Translations: [Anemia in other chronic diseases classified elsewhere] Chronic Deficiency and other anemia (2 sources) Anemia in other chronic diseases classified elsewhere; Translations: [Anemia in other chronic diseases classified elsewhere] Chronic Deficiency and other anemia (20 sources) Anemia; Translations: [Anemia, unspecified] Episodic Deficiency and other anemia (7 sources) Anemia, unspecified; Translations: [ANEMIA UNSPECIFIED] Onset: 12-28-19 Episodic Diabetes mellitus without complication (20 sources) Hyperglycemia; Translations: [Hyperglycemia, unspecified] Onset: 10-03-20 Episodic Disorders of lipid metabolism (20 sources) Hyperlipidemia; Translations: [Hyperlipidemia, unspecified] Onset: 01-10-2003-28-2020 Chronic E Codes: Adverse effects of medical drugs (2 sources) Adverse effect of antihyperlipidemic and antiarteriosclerotic drugs, initial encounter Episodic E Codes: Cut/pierceb (1 source) Contact with other powered hand tools and household machinery, initial encounter; Translations: [CONTACT OTH POWER HT AND HH MACH INIT] Onset: 01-23-20 Episodic Essential hypertension (20 sources) Essential hypertension; Translations: [Essential (primary) hypertension] Onset: 09-28-20 Chronic Genitourinary symptoms and ill-defined conditions (11 sources) Urinary incontinence; Translations: [Unspecified urinary incontinence] Onset: 11-05-1903-28-2020 Chronic Genitourinary symptoms and ill-defined conditions (20 sources) Ravindra hematuria; Translations: [Gross hematuria] Onset: 03-08-2003-28-2020 Episodic Hyperplasia of prostate (20 sources) Benign prostatic hypertrophy with outflow obstruction; Translations: [Nocturia due to benign prostatic hypertrophy] Onset: 01-10-2009-26-2020 Chronic Immunizations and screening for infectious disease (1 source) Encounter for immunization; Translations: [ENCOUNTER FOR IMMUNIZATION] Onset: 01-23-20 Episodic Mycoses (2 sources) Tinea pedis Episodic Neoplasms of unspecified nature or uncertain behavior (10 sources) Neoplasm of bladder 04-27-2020 Episodic Open wounds of extremities (4 sources) Laceration without foreign body of right hand, initial encounter; Translations: [LACERATION W/O FB RT HAND INITIAL] Onset: 01-19-20 Episodic Osteoarthritis (11 sources) Osteoarthritis of right hip joint; Translations: [Unspecified osteoarthritis, unspecified site] Onset: 01-10-2003-28-2020 Chronic Other aftercare (2 sources) Other brass pickler (current) drug therapy; Translations: [OTH HALF-WAY CURRENT DRUG THERAPY] Onset: 01-23-20 Episodic Other and ill-defined heart disease (4 sources) Left ventricular cardiac dysfunction; Translations: [Heart disease, unspecified] Chronic Other and ill-defined heart disease (1 source) Heart disease, unspecified; Translations: [Heart disease, unspecified] Onset: 06-25-20 Chronic Other and unspecified benign neoplasm (1 source) Hemangioma of skin and subcutaneous tissue Episodic Other connective tissue disease (20 sources) Disorder of soft tissue; Translations: [Other specified soft tissue disorders] Episodic Other connective tissue disease (7 sources) Other specified soft tissue disorders; Translations: [OTHER SPEC SOFT TISSUE DISORDERS] Onset: 02-08-20 Episodic Other connective tissue disease (2 sources) Myalgia, unspecified site Episod ic Other diseases of bladder and urethra (4 sources) Bladder disorder, unspecified; Translations: [BLADDER DISORDER UNSPECIFIED] Onset: 11-14-19 Chronic Other diseases of bladder and urethra (1 source) Other specified disorders of bladder; Translations: [OTHER SPECIFIED DISORDERS BLADDER] Onset: 01-10-20 Chronic Other diseases of bladder and urethra (1 source) Diverticulum of bladder; Translations: [DIVERTICULUM OF BLADDER] Onset: 01-10-20 Chronic Other diseases of bladder and urethra (2 sources) Unspecified bulbous urethral stricture, male; Translations: [UNSP BULBOUS URETHRAL STRCT MALE] Onset: 06-13-20 Episodic Other diseases of bladder and urethra (1 source) Unspecified urethral stricture, male, unspecified site; Translations: [UNSP URETHRAL STRCT MALE UNSP SITE] Onset: 11-14-19 Episodic Other diseases of kidney and ureters (10 sources) Cyst of kidney 03-28-2020 Episodic Other diseases of veins and lymphatics (20 sources) Peripheral venous insufficiency; Translations: [Venous insufficiency (chronic) (peripheral)] 03-28-2020 Episodic Other diseases of veins and lymphatics (6 sources) Venous insufficiency (chronic) (peripheral); Translations: [VENOUS INSUFF CHRONIC PERIPHERAL] Onset: 01-10-20 Episodic Other gastrointestinal disorders (10 sources) H/O: ulcerative colitis 03-28-2020 Episodic Other gastrointestinal disorders (1 source) Personal history of other diseases of the digestive system Episodic Other gastrointestinal disorders (1 source) Irregular bowel habits; Translations: [Other specified symptoms and signs involving the digestive system and abdomen] Episodic Other gastrointestinal disorders (5 sources) Constipation, unspecified; Translations: [CONSTIPATION UNSPECIFIED] Onset: 11-03-19 Episodic Other gastrointestinal disorders (1 source) Diarrhea; Translations: [Diarrhea, unspecified] 08-19-2021 Episodic Other gastrointestinal disorders (1 source) Diarrhea, unspecified Episodic Other gastrointestinal disorders (2 sources) Change in bowel habit Episodic Other gastrointestinal disorders (1 source) Constipation; Translations: [Constipation, unspecified] Episodic Other male genital disorders (15 sources) Disorder of male genital organ; Translations: [Hydrocele] 03-28-2020 Episodic Other male genital disorders (20 sources) Hydrocele; Translations: [Hydrocele, unspecified] 10-03-2010 Episodic Other male genital disorders (2 sources) Hydrocele, unspecified; Translations: [Hydrocele, left] Episodic Other nervous system disorders (20 sources) Carpal tunnel syndrome; Translations: [Carpal tunnel syndrome, right upper limb] Chronic Other nervous system disorders (10 sources) Trigeminal neuralgia 03-28-2020 Episodic Other non-traumatic joint disorders (10 sources) Hip pain 03-28-2020 Episodic Other nutritional; endocrine; and metabolic disorders (4 sources) Overweight in adulthood with body mass index of 25 or more but less than 30; Translations: [Overweight] Episodic Poisoning by nonmedicinal substances (1 source) Toxic effect of unspecified spider venom, accidental (unintentional), initial encounter Episodic Regional enteritis and ulcerative colitis (1 source) Ulcerative colitis, unspecified, without complications; Translations: [ULCERATIVE COLITIS UNS W/O COMP] Onset: 06-13-20 Chronic Residual codes; unclassified (20 sources) History of excision of intestinal structure; Translations: [Acquired absence of other specified parts of digestive tract] Episodic Residual codes; unclassified (6 sources) Acquired absence of other specified parts of digestive tract; Translations: [ACQ ABSENCE OTH PART DIGESTV TRACT] Onset: 01-23-20 Episodic Skin and subcutaneous tissue infections (1 source) Carbuncle of buttock Episodic Spondylosis; intervertebral disc disorders; other back problems (20 sources) Lumbar spondylosis; Translations: [Inflammation of sacroiliac joint] Onset: 01-10-20 23 03-28-2020 Chronic Unclassified (10 sources) Asymptomatic microscopic hematuria 12-26-2020 Unclassified (10 sources) Body mass index 20-24 - normal 04-26-2020 Unclassified (2 sources) CONTACT W/AND (SUSP) EXPOS COVID-19; Translations: [CONTACT W/AND (SUSP) EXPOS COVID-19] Onset: 04-10-20 Urinary tract infections (11 sources) Urinary tract infectious disease; Translations: [Urinary tract infection, site not specified] 08-29-2020 Episodic Viral infection (4 sources) COVID-19; Translations: [COVID-19] Onset: 04-09-20 Past or Other Problems Problem Classification Problem Date Documented Da te Episodic/Chronic Intestinal obstruction without hernia (1 source) Stricture of colon; Translations: [Other intestinal obstruction unspecified as to partial versus complete obstruction] Onset: 09-30-2019 09-30-2019 Episodic Other diseases of bladder and urethra (1 source) Other urethral stricture, male, unspecified site; Translations: [OTH URETHRAL STRCT MALE UNSPEC SITE] Onset: 06-13-2022 Episodic Other nervous system disorders (2 sources) Atypical facial pain; Translations: [Atypical facial pain] Onset: 05-06-2017 Episodic Residual codes; unclassified (4 sources) Localized edema; Translations: [LOCALIZED EDEMA] Onset: 03-28-2022 Episodic Unclassified (5 sources) colon ca resection( Confirmed ) 10-03-2010 Unclassified (5 sources) colon ca resection 10-03-2010 Unclassified (1 source) CONTACT W/AND (SUSP) EXPOS COVID-19; Translations: [CONTACT W/AND (SUSP) EXPOS COVID-19] Onset: 04-06-2022 Unclassified (4 sources) Never smoked tobacco; Translations: [Never a smoker] Results Test Name Value Interpretation Reference Range Facil ity Echocardiogramon 06-25-[address], [address] [address] TRANSTHORACIC ECHOCARDIOGRAM REPORT Patient Name: KENNEDY KONG Reading Physician: [id number] Hannah Abraham MD Study Date: 06/25/2023 Referring ADRIEL MORGAN Physician: MRN/PID: [id number] PCP: Nestor Estrella Accession/Order#: [id number] Department [facility] Location: Date of : 1935 Fellow: Gender: M Nurse: Admit Date: [employer] Helper: Flores Love RDCS, T Height: 177.80 cm CC Report to: Weight: 83.92 kg Study Type: Echocardiogram BSA: 2.02 m2 Blood Pressure: 110 /64 mmHg Diagnosis/ICD: 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 PHYSICIAN INTERPRETATION: Left Ventricle: Left ventricular systolic function is normal, with an estimated ejection fraction of 60-65%. There are no regional wall motion abnormalities. The left ventricular cavity size is normal. Spectral Doppler shows an impaired relaxation pattern of left ventricular diastolic filling. Left Atrium: The left atrium is mildly dilated. Mildly dilated left atrium. Right Ventricle: The right ventricle is normal in size. There is normal right ventricular global systolic function. Right Atrium: The right atrium is normal in size. Aortic Valve: The aortic valve appears structurally normal. There is minimal aortic valve cusp calcification. There is trivial aortic valve regurgitation. The peak instantaneous gradient of the aortic valve is 11.0 mmHg. The mean gradient of the aortic valve is 5.0 mmHg. Mitral Valve: The mitral valve is mildly thickened. There is mild mitral valve regurgitation. Tricuspid Valve: The tricuspid valve is structurally normal. There is trace tricuspid regurgitation. The Doppler estimated RVSP is within normal limits at 16.4 mmHg. Pulmonic Valve: The pulmonic valve is structurally normal. There is no indication of pulmonic valve regurgitation. Pericardium: There is no pericardial effusion noted. Aorta: The aortic root is normal. CONCLUSIONS: 1. Left ventricular systolic function is normal with a 60-65% estimated ejection fraction. 2. Spectral Doppler shows an impaired relaxation pattern of left ventricular diastolic filling. 3. Mildly dilated left atrium. 4. Mild mitral valve regurgitation. 5. RVSP within normal limits. 6. No previous study available for comparison. QUANTITATIVE DATA SUMMARY: 2D MEASUREMENTS: Normal Ranges: Ao Root d: 3.20 cm (2.0-3.7cm) LAs: 3.30 cm (2.7-4.0cm) RVIDd: 2.90 cm (0.9-3.6cm) IVSd: 1.40 cm (0.6-1.1cm) LVPWd: 1.00 cm (0.6-1.1cm) LVIDd: 4.20 cm (3.9-5.9cm) LVIDs: 2.70 cm LV Mass Index: 88.2 g/m2 LV % FS 35.7 % LV SYSTOLIC FUNCTION BY 2D PLANIMETRY (MOD): Normal Ranges: EF-A4C View: 58.8 % (>=55%) LV DIASTOLIC FUNCTION: Normal Ranges: MV Peak E: 0.82 m/s (0.7-1.2 m/s) MV Peak A: 1.28 m/s (0.42-0.7 m/s) E/A Ratio: 0.64 (1.0-2.2) MV lateral e' 0.05 m/s MV medial e' 0.05 m/s E/e' Ratio: 16.10 (<8.0) MITRAL VALVE: Normal Ranges: MV Vmax: 1.43 m/s (<=1.3m/s) MV peak P.2 mmHg (<5mmHg) MV mean P.0 mmHg (<48mmHg) MITRAL INSUFFICIENCY: Normal Ranges: MR Vmax: 331.00 cm/s AORTIC VALVE: Normal Ranges: AoV Vmax: 1.66 m/s (<=1.7m/s) AoV Peak P.0 mmHg (<20mmHg) AoV Mean P.0 mmHg (1.7-11.5mmHg) LVOT Max Daniel: 1.04 m/s (<=1.1m/s) AoV VTI: 36.70 cm (18-25cm) LVOT VTI: 21.70 cm LVOT Diameter: 2.30 cm (1.8-2.4cm) AoV Area, VTI: 2.46 cm2 (2.5-5.5cm2) AoV Area,Vmax: 2.60 cm2 (2.5-4.5cm2) AoV Dimensionless Index: 0.59 AORTIC INSUFFICIENCY: AI Vmax: 4.21 m/s AI Half-time: 546 msec AI Decel Rate: 226.00 cm/s2 TRICUSPID VALVE/RVSP: Normal Ranges: Peak TR Velocity: 1.83 m/s RV Syst Pressure: 16.4 mmHg (< 30mmHg) PULMONIC VALVE: Normal Ranges: PV Max Daniel: 0.7 m/s (0.6-0.9m/s) PV Max P.2 mmHg PIEDV: 1.64 m/s PADP: 13.8 mmHg [id number] Hannah Abraham MD Electronically signed on 06/25/2023 at 2:13:32 PM Final Normal [facility] Reminderson 05-21-2023 Reminders - From: Lucero Sutherland To: [facility] Recalls Dietrich; Cc: Lucero Sutherland; Sent: 05/21/2023 11:05:08 EDT Show up: 09/20/2023 11:05:00 EST Subject: sched turbt Due Date/Time: 10/07/2023 11:05:00 EST Reminder/Recall 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 He cannot stop ASA/Brilinta for 6 months. He needs sched for TURBT once cleared by Dr. Morgan. Normal [facility] [place] UroVysion Fish and Urine Cyt o ([facility])on 05-17-2023 UVFISH & UC Diagnosis Info Invalid Interpretation Code [facility] [place] Comment on above: Result Comment: A:Ur ine,Urine:Voided Diagnosis Summary - Isolated atypical urothelial cells with degenerative changes identified, suspicious. Clinical correlation is indicated. Tissue confirmation is recommended as clinically indicated. Adequate cellularity for evaluation. Diagnosis Summary - The UroVysion FISH study detected a positive profile. UroVysion FISH evaluates chromosomes 3, 7, 17, and 9p21 for aneuploid and deletion events associated with urothelial cell carcinoma. 100 cells were analyzed in this evaluation. Evidence of aneuploidy in at least 86 cells and evidence in at least 34 cells with deletion of 9p21 were found. 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 Less likely diagnosis includes other type of carcinoma or metastatic carcinoma involving genitourinary tract. These findings should be correlated with cytology and cystoscopy results.* CPT 71161, 74844. Microscopic Notes - Microscopic Notes - Abnormal cells 9p21 deletions: 34 Abnormal cells aneploid events: 86 Total cells analyzed: 100 Hematuria: Gross Description Site ID:A color Yellow fixative Alcohol Received 70 mls of clearish yellow fluid with the patient's name and, Urine on the vial. Electronically signed by : on: 05/17/2023 11:19:51 Performed By: #### 1 [id number] #### [facility] [place] [facility] [address] [place] [address] Consent for Procedure/Surger yon 05-16-2023 Consent for Procedure/Surgery [id number]:127 Normal [facility] [place] Formson 05-16-2023 Forms [id number] :127 [facility] Consent for Procedure/Surger yon 05-14-2023 Consent for Procedure/Surgery [id number]:127 [facility] Consent for Treatmenton 2 Consent for Treatment [id number]:127 [facility] IntraOperative Documentson 0 05-14-2023 IntraOperative Documents [id number]:127 [facility] Main OR Intraoperative Recor don 05-14-2023 Main OR Intraoperative Record IntraOp Document Type FTURO Summary Primary Physician: Kylie DIETRICH MD Finalized Date/Time: 05/14/23 14:52:05 Pt. Name: LUANN KENNEDY Mata/Sex: 1935 Male Med Rec #: [id number] Physician: Kylie DIETRICH MD Financial #: [id number] Pt. Type: O Room/Bed: / Admit/Disch: 05/14/23 13:13:51 - Institution: Case Times FTURO Entry 1 Patient Times In Room 05/14/23 14:27:00 Out Room 05/14/23 14:48:00 Procedure Times Start 05/14/23 14:32:00 Stop 05/14/23 14:47:00 Anesthesia Times Last Modified By: Emilee ANDERSON, Lyric FRANCIS 05/14/23 14:51:42 Case Attendance FTURO Entry 1 Entry 2 Entry 3 Case Attendee Kylie DIETRICH MD RN, KANNANOR, Tammy POLK, Chrystal Gunter Role Performed Surgeon - Primary Motor Equipment Lieutenant - Primary Scrub - Primary Time In 05/14/23 14:27:00 05/14/23 14:27:00 05/14/23 14:27:00 Time Out 05/14/23 14:48:00 05/14/23 14:48:00 05/14/23 14:48:00 Procedure CYSTOSCOPY LOCAL(.) CYSTOSCOPY LOCAL(.) CYSTOSCOPY LOCAL(.) Comments Last Modified By: Emilee ANDERSON, CNOR, Emilee ANDERSON, KANNANOR, Emilee ANDERSON, KANNANOR, Lyric 05/14/23 Lyric 05/14/23 Lyric 05/14/23 14:51:43 14:51:43 14:51:43 Surgical Procedures FTURO Entry 1 Procedure Description Procedure CYSTOSCOPY LOCAL Modifiers . Surgeon Description cysto Primary Procedure Yes Primary Surgeon Kylie DIETRICH MD Start 05/14/23 14:32:00 Stop 05/14/23 14:47:00 Anesthesia Type Local Surgical Service Urology Wound Class 2 - Clean-Contaminated Last Modified By: Emilee ANDERSON, KANNANOR, Lyric 05/14/23 14:51:45 General Case Data FTURO Pre-Care Text: Classifies surgical wound, implements aseptic technique, initiates traffic control Entry 1 Case Information OR URO 1 FT Case Level None Wound Class 2 - Clean-Contaminated Specialty Urology Preop Diagnosis HX BLADDER CANCER Postop Same As Preop No Postop Diagnosis HX BLADDER CANCER, Outcomes Met? Yes tumors in bladder at bladder neck Last Modified By: KANNAN eHbert RNOR, Lyric 05/14/23 14:51:18 Post-Care Text: The patient is free from signs and symptoms of infection EU IntraOp - FTURO Pre-Care Text: Implements protective measures prior to operative or invasive procedure, confirms identity before the operative or invasive procedure, verifies operative procedure, surgical site, and laterality Entry 1 EU Perioperative Protocols Procedure(s) CYSTOSCOPY LOCAL(.) Patient Identity Birthday, ID Band Verified (select at Check, Patient least 2): Participation Consents / H and P HandP, Surgery/Procedure Operative Site N/A Verified Consent Marking Verified Surgical Site Yes Laterality Verified n/a Verified Procedure Verified Yes Correct Patient Yes Position Verified Availability Equipment, Medication Time Out Kylie DIETRICH MD, Verified (If Participants Emilee ANDERSON, CNOR, Applicable) Tammy Gunter CST, Chrystal Keene Time Out Complete 05/14/23 14:29:00 Allergies Reviewed? Yes Allergies Reviewed Self/Patient With Body Position Supine Prep Area penis Prep Agents Betadine Solution Skin. Condition Unable to Visualize Additional None Specimens Collected Vitals - EU Blood Pressure 128/60 Pulse 73 bpm Respirations SPO2 EBL 0 IandO - EU Total Intake 0 mL Total Output 0 mL Outcomes Met? Yes Last Modified By: PENNY Hebert RN, Ruthann 05/14/23 14:30:53 Post-Care Text: The patient is free from signs and symptoms of injury caused by extraneous objects Sign Out FTURO Entry 1 Before Patient Leaves OR Nurse verbally Yes Nurse verbally n/a confirms with the confirms with the team the name of team that the procedure(s) instrument, sponge, recorded and needle counts are correct (or N/A) Nurse verbally n/a Nurse verbally n/a confirms with the confirms with the team how the team whether there specimen is labeled are any equipment (including patient problems to be name), if applicable addressed Sign Out Complete 05/14/23 14:48:00 Last Modified By: PENNY Hebert RN, Ruthann 05/14/23 14:51:57 Case Comments Finalized By: PENNY Hebert RN, Ruthann Document Signatures Signed By: PENNY Hebert RN, Ruthann 05/14/23 14:51 PENNY Hebert RN, Ruthann 05/14/23 14:52 Normal [facility] [place] Main OR Preoperative Recordo n 05-14-2023 Main OR Preoperative Record Holding Area Document Type FTURO Summary Primary Physician: Kylie DIETRICH MD Finalized Date/Time: 05/14/23 14:28:27 Pt. Name: KENNEDY KONG /Sex: 1935 Male Med Rec #: [id number] Physician: Kylie DIETRICH MD Financial #: [id number] Pt. Type: O Room/Bed: / Admit/Disch: 05/14/23 13:13:51 - Institution: Case Times Holding FTURO Pre-Care Text: Verifies consent for planned procedure, identifies individual values and wishes concerning care, includes family members in perioperative teaching Secures patient's records' belongings, and valuables, maintains patient's dignity and privacy, and maintains patient confidentiality Entry 1 In Holding 05/14/23 13:56:00 Outcomes Met? Yes Last Modified By: Marilee Vaughn LPN 05/14/23 13:56:03 Post-Care Text: The patient participates in decisions affecting his or her perioperative plan of care The patient's right to privacy is maintained Surgery Checklist FTURO Entry 1 Patient Birthday, ID Band Procedure Surgical Consent, With Identification: Check, Patient Verification: Patient Participation NPO after Midnight: n/a Date/Time: 05/14/23 13:56:00 Personal Items: Cataract Lens Implant, Personal Items bilat lens implants, Glasses Comment: glasses Complaints of Pain: No Skin Integrity Intact, [place], Warm, & Dry Vitals - EU Blood Pressure 128/60 Pulse 73 bpm Respirations 20 br/min SPO2 96 % RN Reviewed Yes Last Modified By: PENNY Hebert RN, Ruthann 05/14/23 14:28:24 General Comments: Temp 98.1 Finalized By: PENNY Hebert RN, Ruthann Document Signatures Signed By: Marilee Vaughn LPN 05/14/23 14:03 PENNY Hebert RN, Ruthann 05/14/23 14:28 Normal [facility] [place] Operative Reporton Operative Report Patient: MJ KONG Age: 87 years Sex: Male : 1935 Associated Diagnoses: None Author: Kylie DIETRICH MD Procedure Operative Information Details: Date/ Time: 05/14/2023 14:41:00. Pre-Op Dx: Hx of Bladder CA - Z85.51, Bladder Mass - D41.4. Post-Op Dx: Same, Penile and bulbar urethral stenosis. Anesthesia Type: Local. Procedure: Local Cystoscopy. Complications: None. Risks/Benefits/Informed Consent: Surgical risks, benefits, details of the procedure have been explained to the patient, Full informed consent has been obtained. Intraoperative Information Prepped: Patient is brought back to the endoscopy suite, Patient is placed in supine position, Patient prepped in the usual fashion with Betadine solution, 2% Xylocaine Jelly is placed per Urethra, After waiting several minutes the Cystoscope is introduced. The Urethra is: Tight, Penile and bulbar urethral stenosis. Nearly unable to get the flexible scope through it. The Prostatic Urethra is: Moderate Hypertrophy. The Bladder is: Abnormal, Trabeculated (Mild (1), Papillary TCC appearing tumors at the bladder neck at 9 and 10 o'clock position. Calcification adhered to the tumors. No other tumors anywhere else.). The ureteral orifices: Show efflux of clear urine. Devices Implanted: None. Removal: Cystoscope is removed, The patient tolerated it well. Postoperative Information Discharge: Patient is discharged home with antibiotic coverage, Follow up arranged. He will need cystoscopy and transurethral resection of bladder tumors under general.. 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 He has undergone numerous BCG and mitomycin C treatments over the last few years. Today, on surveillance cystoscopy, he was found to have 2 new papillary TCC tumors on the bladder neck. These were approximately 2 cm in size each. Review of Systems ROS reviewed as documented in chart Health Status Allergies: Allergic Reactions (Selected) No Known Allergies Current medications: Home Medications (4) Active beta prostate cefdinir 300 mg Cap See Instructions Cipro 250 mg Tab 250 mg = 1 tab(s), Oral, Daily Flomax 0.4 mg Cap 0.4 mg = 1 cap(s), Oral, Daily Problem list: All Problems BPH with obstruction/lower urinary tract symptoms / SNOMED CT 3220878491 / Confirmed History of ulcerative colitis / SNOMED CT 694463118 / Confirmed Trigeminal neuralgia of right side of face / SNOMED CT 02557027 / Confirmed Hyperlipidemia / SNOMED CT 53424859 / Confirmed Chronic venous insufficiency / SNOMED CT 32354008 / Confirmed Lumbar spondylosis / SNOMED CT 262925344 / Confirmed Right hip pain / SNOMED CT 86550076 / Confirmed Chronic kidney disease / SNOMED CT 2924788421 / Confirmed Gross hematuria / SNOMED CT 375195616 / Confirmed Osteoarthritis of right hip / SNOMED CT 7012693731 / Confirmed Urinary incontinence / SNOMED CT 2504526741 / Confirmed Renal cyst / SNOMED CT 0403603832 / Confirmed Hydrocele / SNOMED CT 3540250585 / Confirmed BMI 24.0-24.9, adult / SNOMED CT 5055696479 / Confirmed Bladder tumor / SNOMED CT 994330 / Confirmed Bladder cancer / SNOMED CT 7197226239 / Confirmed Asymptomatic microscopic hematuria / SNOMED CT 2443749915 / Confirmed UTI (urinary tract infection) / SNOMED CT 305300451 / Confirmed Recurrent bladder papillary carcinoma / SNOMED CT 742750159 / Confirmed Histories Past Medical History: Resolved colon ca resection: Resolved. hydrocele: Resolved. Family History: Colon cancer Father () Procedure history: Endoscopic destruction of bladder tumor by laser EVOLVE ([id number]) on 12/13/2020 at 85 Years. TURBT - with left ureteroscopy and left stent placement ([id number]) on 05/26/2020 at 84 Years. Hydrocelectomy ([id number]) in 2001 at 67 Years. colon resection. colonoscopy. Cataract ([id number]). Comments: 10/17/2010 12:31 CESARIO - Martha Mazariegos left Social History Social & Psychosocial Habits Alcohol 10/03/2010 Risk Assessment: Denies Alcohol Use Substance Abuse 10/03/2010 Risk Assessment: Denies Substance Abuse Tobacco 10/03/2010 Risk Assessment: Denies Tobacco Use 06/13/2020 Tobacco Use: Never (less than 100 in l 08/29/2020 Tobacco Use: Never (less than 100 in l Smokeless tobacco use: Never 09/01/2021 Tobacco Use: Never (less than 100 in l . Objective He is in no acute distress. He is resting comfortably. Vitals are stable. Abdomen is soft and nontender. External genitalia are unremarkable. Impression and Plan Impression: #1. He seems to have a recurrence of his bladder cancer now at the bladder neck in the form of 2 tumors each approximately 2 cm in size. Plan: #1 he needs to get scheduled for transurethral resection of bladder tumors. Depending on the pathology he then will require more BCG. Normal [facility] [place] Comment on above: Result Comment: Elec tronically Signed By: KARLO CHOI, Kylie Gill\Date and Time Signed: 05/14/23 14:46 EDT Ambulatory Visit Summaryon 0 05-10-2023 Ambulatory Visit Summary KENNEDY KONG :1935 Visit Date:05/10/2023 Ambulatory Visit Instructions Your Diagnosis Bladder cancer Your Care Team Attending Physician - KARLO CHOI, Kylie Restrepo Primary Care Physician - NESTOR ESTRELLA DO This Is Your Medications List Non-Formulary Medication (beta prostate) cefdinir (cefdinir 300 mg Cap) ciprofloxacin (Cipro 250 mg Tab) tamsulosin (Flomax 0.4 mg Cap) Procedures Performed Endoscopic destruction of bladder tumor by laser (12/13/2020), TURBT - Transurethral resection of bladder tumor (05/26/2020), Hydrocelectomy (2001), Cataract, colon resection, colonoscopy. Medications What How Much When Instructions Unchanged cefdinir (cefdinir 300 mg Cap) See instructions Unchanged ciprofloxacin (Cipro 250 mg Tab) 1 Tablets By Mouth Every day Take 1 tablet the day before the procedure and 1 tablet after the procedure Unchanged Non-Formulary Medication (beta prostate) Unchanged tamsulosin (Flomax 0.4 mg Cap) 1 Capsules By Mouth Every day Allergies No Known Allergies Problems Ongoing - Any problem that you are currently receiving treatment for. 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 colon ca resection hydrocele Normal [facility] [place] UroVysion Fish and Urine Cyt o ([facility])on 05-10-2023 [facility] Method of Extraction Voided Normal [facility] [place] Comment on above: Performed By: #### 1 [id number] #### [facility] [place] [facility] [address] [place] [address] [facility] Number of Jars 1 Invalid Interpretation Code [facility] [place] Comment on above: Performed By: #### 1 [id number] #### [facility] [place] [facility] [address] [place] [address] [facility] Specimen Urine Normal [facility] Comment on above: Performed By: #### 1 [id number] #### [facility] [place] [facility] [address] [place] [address] [facility] Type of Service Technical Only Normal [facility] [place] Comment on above: Performed By: #### 1 [id number] #### [facility] [place] [facility] [address] [place] [address] Office Visit (Cardiology)on 05-02-2023 Follow-up visit Diagnoses/Problems Assessed Myocardial infarction (410.90) (I21.9) Status post insertion of drug eluting coronary artery stent (V45.82) (Z95.5) LV dysfunction (429.9) (I51.9) ASHD (arteriosclerotic heart disease) (414.00) (I25.10) Never a smoker Hyperlipidemia (272.4) (E78.5) Overweight with body mass index (BMI) of 26 to 26.9 in adult (278.02,V85.22) (E66.3,Z68.26) Orders ASHD (arteriosclerotic heart disease), Hyperlipidemia, LV dysfunction, Status post insertion of drug eluting coronary artery stent ALT - Alanine Aminotransferase, Serum; Status:Active - Retrospective Authorization; Requested for:[id number]; AST; Status:Active - Retrospective Authorization; Requested for:[id number]; Complete Blood Count; Status:Active - Retrospective Authorization; Requested for:[id number]; Echocardiogram; Status:Hold For - Scheduling,Retrospective Authorization; Requested for:[id number]; Lipid Panel; Status:Active - Retrospective Authorization; Requested for:[id number]; SocHx: Never a smoker Tobacco Use Screening; Status:Complete; Done: [id number] Patient Instructions Please bring all medicines, vitamins, and herbal supplements with you when you come to the office. Prescriptions will not be filled unless you are compliant with your follow up appointments or have a follow up appointment scheduled as per instruction of your physician. Refills should be requested at the time of your visit. Follow up in 6 months Chief Complaint KENNEDY KONG is being seen for follow-up of a hospitalization for STEMI/PCI. Patient is an 87-year-old gentleman who returns following recent non-ST elevation OK due to occluded obtuse marginal branch with primary revascularization with drug-eluting stent and is doing well. He has mild LV dysfunction, No significant coronary disease, ejection fraction of 45%. 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 He has no recurrence of angina, shortness of breath, nitrate usage or repeat hospitalizations He is tolerating his medications well We will follow-up again in 6 months on same therapy Surgical History Problems History of Arterial stent placement History of Cardiac catheterization History of Colectomy subtotal History of Colonoscopy History of Gallbladder surgery tumor removal Current Meds Medication NameInstruction Atorvastatin Calcium 80 MG Oral TabletTAKE 1 TABLET AT BEDTIME. Brilinta 90 MG Oral TabletTAKE 1 TABLET TWICE DAILY. Carvedilol 6.25 MG Oral TabletTAKE 1 TABLET BY MOUTH TWO TIMES A DAY Stool Softener 100 MG Oral TabletTAKE 1 TABLET DAILY DIRECTED. Tamsulosin HCl - 0.4 MG Oral CapsuleTAKE 1 CAPSULE Daily Allergies Medication No Known Drug Allergies Recorded By: Lorena Garcia; 05/02/2023 12:00:11 PM Social History Problems Never a smoker No caffeine use No illicit drug use Social alcohol use (V49.89) (Z78.9) Review of Systems Constitutional: not feeling tired. Cardiovascular: no intermittent leg claudication and as noted in HPI. Respiratory: no cough and no shortness of breath. Gastrointestinal: no change in bowel habits and no blood in stools. Integumentary: no skin rashes. Neurological: no seizures and no frequent falls. All other systems have been reviewed and are negative for complaint. Vitals Vital Signs Recorded: [id number] 11:57AM Heart Rate60, L Radial [id number], LUE, Sitting Zsqzphovk41, LUE, Sitting Height5 ft 10 in Pediyg977 lb BMI Ogiztarpra07.54 kg/m2 BSA Calculated2.02 Tobacco Useb) No PHQ-2 #1. Over the last 2 weeks have you felt down, depressed or hopeless? (If yes, answer PHQ-9 below)No PHQ-2 #2. Over the last 2 weeks have you felt little interest or pleasure in doing things? (If yes, answer PHQ-9 below)No Falls Screening (Age 18+)a) No falls within the last year Physical Exam Constitutional: alert and in no acute distress. Neck: neck is supple, symmetric, trachea midline, no masses and no thyromegaly . Pulmonary: no increased work of breathing or signs of respiratory distress and lungs clear to auscultation. Cardiovascular: carotid pulses 2+ bilaterally with no bruit , JVP was normal, no thrills , regular rhythm, normal S1 and S2, no murmurs , pedal pulses 2+ bilaterally and no edema . Abdomen: abdomen non-tender, no masses and no hepatomegaly . Skin: skin warm and dry, normal skin turgor . Psychiatric judgment and insight is normal and oriented to person, place and time . Signatures Electronically signed by : Adriel Morgan DO; May 02 2023 12:49PM EST (Author) Normal [employer] Tobacco Screening.on 023 Adult depression screening assessment No [facility] art-[place]on 250 DO Work Phone: Fall risk assessment a) No falls within the last year [facility]- [place] 250 DO Work Phone: Tobacco use status [facility] b) No M [facility]-[place] 250 DO Work Phone: Basic Metabolic Panelon Anion gap [Moles/Vol] 10.5 mmol/L Normal 6.0-15.0 [facility] Comment on above: Performed By: #### L IPID, CBC, BMP, HS TROP #### [facility] [address] [place] [address] [place] Calcium [Mass/Vol] 8.7 mg/dL Normal 8.6-10.3 [facility] Comment on above: Performed By: #### L IPID, CBC, BMP, HS TROP #### [facility] [address] [place] [address] [place] Chloride [Moles/Vol] 106 mmol/L Normal 98-[address] [facility] Comment on above: Performed By: #### L IPID, CBC, BMP, HS TROP #### [facility] [address] [place] [address] [place] CO2 [Moles/Vol] 25.0 mmol/L Normal 21.0-31.0 [facility] Comment on above: Performed By: #### L IPID, CBC, BMP, HS TROP #### [facility] [address] [place] [address] [place] Creatinine [Mass/Vol] 0.99 mg/dL Normal 0.70-1.30 [facility] Comment on above: Performed By: #### L IPID, CBC, BMP, HS TROP #### [facility] [address] [place] [address] [place] Creatinine Clr Calc Pharmacy 55.30 [facility] Comment on above: Performed By: #### L IPID, CBC, BMP, HS TROP #### [facility] [address] [place] [address] [place] GFR/1.73 sq M.predicted MDRD (S/P/Bld) [Vol rate/Area] mL/min/{1.73_m2} [facility] Comment on above: Performed By: #### L IPID, CBC, BMP, HS TROP #### [address] Glucose [Mass/Vol] 110 mg/dL High 70-100 [facility] Comment on above: Result Comment: [facility] Glucose Reference Range is dependent on time and content of last meal. Glucose of more than 200 mg/dL in a nonstressed, ambulatory subject supports the diagnosis of Diabetes Mellitus. ADA recommended reference range Performed By: #### L IPID, CBC, BMP, HS TROP #### [facility] [address] [place] [address] [place] Potassium [Moles/Vol] 4.5 mmol/L Normal 3.5-5.1 [facility] Comment on above: Performed By: #### L IPID, CBC, BMP, HS TROP #### [facility] [address] [place] [address] [place] Sodium [Moles/Vol] 137 mmol/L Normal 136-145 [facility] Comment on above: Performed By: #### L IPID, CBC, BMP, HS TROP #### [facility] [address] [place] [address] [place] Urea nitrogen [Mass/Vol] 24 mg/dL Normal 7-25 [facility] Comment on above: Performed By: #### L IPID, CBC, BMP, HS TROP #### [facility] [address] Basophils Auto (Bld) [#/Vol] Ordered By: Ko Morgan on 04-23-2023 Basophils (Bld) [#/Vol] 0.1 10*3/uL 0.0-0.2 [facility] Basophils/100 WBC Auto (Bld) Ordered By: Ko Morgan on 04-23-2023 Basophils/100 WBC (Bld) 0.7 % . [facility] Calcium [Mass/volume] in Ser um or PlasmaOrdered By: Ko Morgan on 04-23-2023 Calcium [Mass/Vol] 8.7 mg/dL 8.6-10.3 [facility] Carbon dioxide, total [Moles /volume] in Serum or PlasmaOrdered By: Ko Morgan on 04-23-2023 CO2 [Moles/Vol] 25.0 mmol/L 21.0-31.0 [facility] Chloride [Moles/volume] in S aimee or PlasmaOrdered By: Ko Morgan on 04-23-2023 Chloride [Moles/Vol] 106 mmol/L 98-[address] [facility] Cholesterol [Mass/volume] in Serum or PlasmaOrdered By: Ko Morgan on 04-23-2023 Cholesterol [Mass/Vol] 148 mg/dL 140-200 [facility] Comment on above: Chol less than 200 m g/dl low riskChol 201-239 mg/dl borderline riskChol 240 mg/dl and greater high risk Cholesterol in LDL Calc [Mas s/Vol]Ordered By: Ko Morgan on 04-23-2023 Cholesterol in LDL [Mass/Vol] 73 mg/dL 0-100 [facility] Comment on above: LDL ATP III CLASSIFI CATIONLDL less than 100 mg/dL OptimalLDL 100-129 mg/dL Near or above optimalLDL 130-159 mg/dL Borderline highLDL 160-189 mg/dL HighLDL greater than 189 mg/dL Very high Cholesterol in VLDL Calc [Ma ss/Vol]Ordered By: Ko Morgan on 04-23-2023 Cholesterol in VLDL [Mass/Vol] 19 mg/dL [facility] Complete Blood Count Auto Di ffon 04-23-2023 Basophils (Bld) [#/Vol] 0.1 10*3/uL Normal 0.0-0.2 [facility] Comment on above: Result Comment: PERF ORMED BY: [place] [address] PATHOLOGIST [employer] WORK[employer] JAMIE MADISON M.D. Performed By: #### L IPID, CBC, BMP, HS TROP #### [facility] [address] Basophils/100 WBC (Bld) 0.7 % Normal . [facility] Comment on above: Performed By: #### L IPID, CBC, BMP, HS TROP #### [facility] [address] Eosinophils (Bld) [#/Vol] 0.1 10*3/uL Normal 0.0-0.45 [facility] Comment on above: Performed By: #### L IPID, CBC, BMP, HS TROP #### [facility] [address] Eosinophils/100 WBC (Bld) 1.5 % Normal . [facility] Comment on above: Performed By: #### L IPID, CBC, BMP, HS TROP #### [facility] [address] [place] [address] [place] Erythrocyte distribution wid th (RBC) [Ratio] 13.6 % Normal 12.0-14.8 [facility] Comment on above: Performed By: #### L IPID, CBC, BMP, HS TROP #### [facility] [address] [place] [address] [place] Hematocrit (Bld) [Volume fraction] 40.6 % Normal 38.8-50.0 [facility] Comment on above: Performed By: #### L IPID, CBC, BMP, HS TROP #### [facility] [address] [place] [address] [place] Hemoglobin (Bld) [Mass/Vol] 13.4 g/dL Normal 13.0-17. 0 [facility] Comment on above: Performed By: #### L IPID, CBC, BMP, HS TROP #### [facility] [address] [place] [address] Lymphocytes (Bld) [#/Vol] 0.9 10*3/uL Low 1.00-4.8 [facility] Comment on above: Performed By: #### L IPID, CBC, BMP, HS TROP #### [address] Lymphocytes/100 WBC (Bld) 10.5 % Normal . [facility] Comment on above: Performed By: #### L IPID, CBC, BMP, HS TROP #### [address] MCH (RBC) [Entitic mass] 29.7 pg Normal 27.5-35.2 [facility] Comment on above: Performed By: #### L IPID, CBC, BMP, HS TROP #### [address] MCV (RBC) [Entitic vol] 89.8 fL Normal 83.5-101 [facility] Comment on above: Performed By: #### L IPID, CBC, BMP, HS TROP #### [address] Mean Corpuscular HGB Conc 33.1 g/dL Normal 32.5-35.6 [facility] Comment on above: Performed By: #### L IPID, CBC, BMP, HS TROP #### [place] [address] [place] Monocytes (Bld) [#/Vol] 1.1 10*3/uL High 0.0-0.8 [facility] Comment on above: Performed By: #### L IPID, CBC, BMP, HS TROP #### [place] [address] [place] Monocytes/100 WBC (Bld) 14.1 % Normal . [facility] Comment on above: Performed By: #### L IPID, CBC, BMP, HS TROP #### [facility] [address] [place] [address] [place] Neutrophils (Bld) [#/Vol] 5.9 10*3/uL Normal 1.8-7.7 [facility] Comment on above: Performed By: #### L IPID, CBC, BMP, HS TROP #### [facility] [address] [place] [address] Neutrophils/100 WBC (Bld) 73.2 % Normal . [facility] Comment on above: Performed By: #### L IPID, CBC, BMP, HS TROP #### [facility] [address] [place] [address] NRBC% 0.1 /100{WBC} Normal 0-0.5 [facility] Comment on above: Performed By: #### L IPID, CBC, BMP, HS TROP #### [address] Platelet mean volume (Bld) [Entitic vol] 6.8 fL Normal 6.6-10.1 [facility] Comment on above: Performed By: #### L IPID, CBC, BMP, HS TROP #### [place] [address] [place] Platelets (Bld) [#/Vol] 215 10*3/uL Normal 150-450 [facility] Comment on above: Performed By: #### L IPID, CBC, BMP, HS TROP #### [facility] [address] [place] [address] [place] RBC (Bld) [#/Vol] 4.52 10*6/uL Normal 3.90-5.60 [facility] Comment on above: Performed By: #### L IPID, CBC, BMP, HS TROP #### [place] [address] [place] WBC (Bld) [#/Vol] 8.1 10*3/uL Normal 4.1-10.5 [facility] Comment on above: Performed By: #### L IPID, CBC, BMP, HS TROP #### [address] [place] [address] [facility] Creatinine [Mass/volume] in Serum or PlasmaOrdered By: Ko Morgan on 04-23-2023 Creatinine [Mass/Vol] 0.99 mg/dL 0.70-1.30 [facility] ECG 12 lead ECGon 04-23-2023 ECG 12 lead ECG [facility] [address] [place] [address] [place] [address] Electrocardiograph Report Signed Patient: Kennedy Kong MR#: [id number] 1435 : 1935 Acct:[id number] Age/Sex: 87 / M ADM Date: 04/22/23 Loc: Room: [address] [place] [address] Type: ADM IN Attending Dr: Kiki Motta MD Ordering Provider: Ko Morgan DO Date of Service: 04/23/2302/10/500 ECG/ECG 12 lead ECG: NSTEMI Copies to: Test Reason : Blood Pressure : / mmHG Vent. Rate : 075 BPM Atrial Rate : 075 BPM P-R Int : 156 ms QRS Dur : 080 ms QT Int : 392 ms P-R-T Axes : 073 080 094 degrees QTc Int : 437 ms Normal sinus rhythm ST elevation, consider inferior injury or acute infarct ACUTE OK / STEMI Abnormal ECG No previous ECGs available Confirmed by RANDAL SRIVASTAVA DO ([id number]) on 04/23/2023 9:23:52 AM Referred By: Electronically Signed By:RANDAL SRIVASTAVA DO Transcribed By: MUS Signed By Randal Srivastava DO 04/23 0923 Normal [facility] Eosinophils Auto (Bld) [#/Vo l]Ordered By: Ko Morgan on 04-23-2023 Eosinophils (Bld) [#/Vol] 0.1 10*3/uL 0.0-0.45 [facility] Eosinophils/100 WBC Auto (Bl d)Ordered By: Ko Morgan on 04-23-2023 Eosinophils/100 WBC (Bld) 1.5 % . [facility] Erythrocyte distribution wid th Auto (RBC) [Ratio]Ordered By: Ko Morgan on 07-04-2023 Erythrocyte distribution wid th (RBC) [Ratio] 13.6 % 12.0-14.8 [facility] Glucose [Mass/volume] in Ser um or PlasmaOrdered By: Ko Morgan on 04-23-2023 Glucose [Mass/Vol] 110 mg/dL 70-100 [facility] Comment on above: ADA recommended refe rence rangeRandom Glucose Reference Range is dependent on time and content of last meal. Glucose of more than 200 mg/dL in a nonstressed, ambulatory subject supports the diagnosis of Diabetes Mellitus. Hematocrit Auto (Bld) [Volum e fraction]Ordered By: Ko Morgan on 04-23-2023 Hematocrit (Bld) [Volume fraction] 40.6 % 3 8.8-50.0 [facility] Hemoglobin [Mass/volume] in BloodOrdered By: Ko Morgan on 04-23-2023 Hemoglobin (Bld) [Mass/Vol] 13.4 g/dL 13.0-17. 0 [facility] Leukocytes [#/volume] correc ramona for nucleated erythrocytes in Blood by Automated counOrdered By: Ko Morgan on 04-23-2023 WBC corrected for nucl RBC A uto (Bld) [#/Vol] 8.1 10*3/uL 4.1-10.5 [facility] Lipid Panelon 04-23-2023 Cholesterol [Mass/Vol] 148 mg/dL Normal 140-200 [facility] Comment on above: Result Comment: Chol less than 200 mg/dl low risk Chol 201-239 mg/dl borderline risk Chol 240 mg/dl and greater high risk Performed By: #### L IPID, CBC, BMP, HS TROP #### [facility] [address] [place] [id number] [place] Cholesterol in HDL [Mass/Vol] 56 mg/dL Normal 23-92 [facility] Comment on above: Result Comment: HDL CHOL ATP-III CLASSIFICATION Cardiovascular Risk HDL > or equal to 60 mg/dL LOW HDL < 40 mg/dL HIGH Performed By: #### L IPID, CBC, BMP, HS TROP #### [facility] [address] [place] [id number] [place] Cholesterol.total/Cholestero l in HDL [Mass ratio] 2.6 {ratio} Normal <5.0 [facility] Comment on above: Result Comment: PERF ORMED BY: [place] [address] PATHOLOGIST [employer] WORK[employer] JAMIE MADISON M.D. Performed By: #### L IPID, CBC, BMP, HS TROP #### [address] LDL Cholesterol,Calculated 73 mg/dL Normal 0-100 [facility] Comment on above: Result Comment: LDL ATP III CLASSIFICATION LDL less than 100 mg/dL Optimal LDL 100-129 mg/dL Near or above optimal LDL 130-159 mg/dL Borderline high LDL 160-189 mg/dL High LDL greater than 189 mg/dL Very high Performed By: #### L IPID, CBC, BMP, HS TROP #### [address] Triglyceride w/Reflex 97 mg/dL Normal 0-149 [facility] Comment on above: Result Comment: TRIG ATP III CLASSIFICATION TRIG less than 150 mg/dL Normal TRIG 150-199 mg/dL Borderline high TRIG 200-500 mg/dL High TRIG greater than 500 mg/dL Very high Standard traceable to the Center for Disease Conrtrol and Prevention (CDC) test method. Performed By: #### L IPID, CBC, BMP, HS TROP #### [address] VLDL CHOLESTEROL 19 mg/dL Normal [facility] Comment on above: Performed By: #### L IPID, CBC, BMP, HS TROP #### [address] Lymphocytes Auto (Bld) [#/Vo l]Ordered By: Ko Morgan on 04-23-2023 Lymphocytes (Bld) [#/Vol] 0.9 10*3/uL 1.00-4.8 [facility] Lymphocytes/100 WBC Auto (Bl d)Ordered By: Ko Morgan on 04-23-2023 Lymphocytes/100 WBC (Bld) 10.5 % . [facility] MCH Auto (RBC) [Entitic mass ]Ordered By: Ko Morgan on 04-23-2023 MCH (RBC) [Entitic mass] 29.7 pg 27.5-35.2 [facility] MCHC Auto (RBC) [Mass/Vol]Or dered By: Ko Morgan on 04-23-2023 MCHC (RBC) [Mass/Vol] 33.1 g/dL 32.5-35.6 [facility] MCV Auto (RBC) [Entitic vol] Ordered By: Ko Morgan on 04-23-2023 MCV (RBC) [Entitic vol] 89.8 fL 83.5-101 [facility] Monocytes Auto (Bld) [#/Vol] Ordered By: Ko Morgan on 04-23-2023 Monocytes (Bld) [#/Vol] 1.1 10*3/uL 0.0-0.8 [facility] Monocytes/100 WBC Auto (Bld) Ordered By: Ko Morgan on 04-23-2023 Monocytes/100 WBC (Bld) 14.1 % . [facility] Neutrophils Auto (Bld) [#/Vo l]Ordered By: Ko Morgan on 04-23-2023 Neutrophils (Bld) [#/Vol] 5.9 10*3/uL 1.8-7.7 [facility] Neutrophils/100 WBC Auto (Bl d)Ordered By: Ko Morgan on 04-23-2023 Neutrophils/100 WBC (Bld) 73.2 % . [facility] No Panel InformationOrdered By: Ko Morgan on 04-23-2023 Estimated GFR (CKD-EPI) > 60.0 mL/Min [facility] Creatinine Clearanc e (Chem 55.30 [facility] Nucleated erythrocytes [Pres ence] in Blood by Automated countOrdered By: Ko Morgan on 04-23-2023 Nucleated RBC Auto Ql (Bld) 0.1 /100{WBC} 0-0.5 [facility] Platelet mean volume Auto (B ld) [Entitic vol]Ordered By: Ko Morgan on 04-23-2023 Platelet mean volume (Bld) [Entitic vol] 6.8 fL 6.6-10.1 [facility] Platelets Auto (Bld) [#/Vol] Ordered By: Ko Morgan on 04-23-2023 Platelets (Bld) [#/Vol] 215 10*3/uL 150-450 [facility] Potassium [Moles/volume] in Serum or PlasmaOrdered By: Ko Morgan on 04-23-2023 Potassium [Moles/Vol] 4.5 mmol/L 3.5-5.1 [facility] RBC Auto (Bld) [#/Vol]Ordere d By: Ko Morgan on 04-23-2023 RBC (Bld) [#/Vol] 4.52 10*6/uL 3.90-5.60 [facility] Serum or plasma anion gap de terminationOrdered By: Ko Morgan on 04-23-2023 Anion gap [Moles/Vol] 10.5 mmol/L 6.0-15.0 [facility] Serum or plasma high density lipoprotein (HDL) cholesterol measurementOrdered By: Ko Morgan on 04-23-2023 Cholesterol in HDL [Mass/Vol] 56 mg/dL 23-92 [facility] Comment on above: HDL CHOL ATP-III CLA SSIFICATION Cardiovascular RiskHDL > or equal to 60 mg/dL LOWHDL < 40 mg/dL HIGH Serum or plasma total choles terol/high density lipoprotein (HDL) cholesterol mass ratOrdered By: Ko Morgan on 04-23-2023 Cholesterol.total/Cholestero l in HDL [Mass ratio] 2.6 {ratio} <5.0 [facility] Sodium [Moles/volume] in Ser um or PlasmaOrdered By: Ko Morgan on 04-23-2023 Sodium [Moles/Vol] 137 mmol/L 136-145 [facility] Triglyceride [Mass/volume] i n Serum or PlasmaOrdered By: Ko Morgan on 04-23-2023 Triglyceride [Mass/Vol] 97 mg/dL 0-149 [facility] Comment on above: TRIG ATP III CLASSIF ICATIONTRIG less than 150 mg/dL NormalTRIG 150-199 mg/dL Borderline highTRIG 200-500 mg/dL High TRIG greater than 500 mg/dL Very highStandard traceable to the Center for Disease Conrtrol and Prevention (CDC) test method. Troponin I High Sensitivityo n 04-23-2023 Troponin I High Sensitivity 00625.2 pg/mL Off scale high 0.0-20.0 [facility] Comment on above: Result Comment: Crit ical Result : Called to and read back by: STACY JACKSON at: 04/23/2023 04:24:25 by:[id number] PERFORMED BY: [place] [phone] PATHOLOGIST [employer] WORKER JAMIE MADISON M.D. Performed By: #### L IPID, CBC, BMP, HS TROP #### [facility] [address] [place] [address] Troponin I High Sensitivity 22860.0 pg/mL Off scale high 0.0-20.0 [facility] Comment on above: Result Comment: Crit ical Result [id number]_d:[id number] Called to and read back by: STACY JACKSON at: 04/23/2023 00:43:35 by:[id number] PERFORMED BY: [place] [phone] PATHOLOGIST [employer] WORKER JAMIE MADISON M.D. Performed By: #### H S TROP #### [facility] [address] [place] [address] Troponin I.cardiac [Mass/vol ume] in Serum or Plasma by Detection limit <= 0.01 ng/Ordered By: Ko Morgan on 04-23-2023 Troponin I.cardiac DL <= 0.0 1 ng/mL [Mass/Vol] 20752.2 pg/mL 0.0-20.0 [facility] Comment on above: Critical Result : Ca lled to and read back by: STACY JACKSON at: 04/23/2023 04:24:25 by:[id number] Urea nitrogen [Mass/volume] in Serum or PlasmaOrdered By: Ko Morgan on 04-23-2023 Urea nitrogen [Mass/Vol] 24 mg/dL 7-25 [facility] WBC Auto (Bld) [#/Vol]Ordere d By: Ko Morgan on 04-23-2023 WBC (Bld) [#/Vol] 8.1 10*3/uL 4.1-10.5 [facility] ECG 12 lead ECGon 04-22-2023 ECG 12 lead ECG [facility] [address] [place] [address] [place] [address] Electrocardiograph Report Signed Patient: Kennedy Kong MR#: [id number] 1435 : 1935 Acct:[id number] Age/Sex: 87 / M ADM Date: 04/22/23 Loc: Room: [address] [place] [address] Type: ADM IN Attending Dr: Kiki Motta MD Ordering Provider: Ko Morgan DO Date of Service: 04/22/2301/10/1358 ECG/ECG 12 lead ECG: Post Angioplasty Procedure Copies to: Test Reason : Blood Pressure : / mmHG Vent. Rate : 064 BPM Atrial Rate : 064 BPM P-R Int : 164 ms QRS Dur : 082 ms QT Int : 428 ms P-R-T Axes : 066 069 072 degrees QTc Int : 441 ms Normal sinus rhythm Normal ECG No previous ECGs available Confirmed by RANDAL SRIVASTAVA DO ([id number]) on 04/23/2023 9:23:38 AM Referred By: NOH Electronically Signed By:RANDAL SRIVASTAVA DO Transcribed By: MUS Signed By Randal Srivastava DO 04/23 Normal [facility] Troponin I High Sensitivityo n 04-22-2023 Troponin I High Sensitivity 40432.2 pg/mL Off scale high 0.0-20.0 [facility] Comment on above: Result Comment: Crit ical Result I_TnIHS_d:04737.2 Called to and read back by: STACY JACKSON at: 04/22/2023 20:59:13 by:[id number] PERFORMED BY: [place] [address] PATHOLOGIST [employer]ISE WORKER JAMIE MADISON M.D. Performed By: #### H S TROP #### [address] Troponin I High Sensitivity 84592.7 pg/mL Off scale high 0.0-20.0 [facility] Comment on above: Result Comment: Crit ical Result I_TnIHS_d:61699.7 Called to and read back by: IRIS MARQUES at: 04/22/2023 18:09:03 by:[id number] PERFORMED BY: [place] [address] PATHOLOGIST MERCHANDISE WORKER JAMIE MADISON M.D. Performed By: #### H S TROP #### [address] Troponin I High Sensitivity 19352.8 pg/mL Off scale high 0.0-20.0 [facility] Comment on above: Result Comment: Crit ical Result : Called to and read back by: IRIS MARQUES at: 04/22/2023 16:04 by:[id number] PERFORMED BY: [place] [address] PATHOLOGIST MERCHANDISE WORKER JAMIE MADISON M.D. Performed By: #### H S TROP #### [address] Consent for Procedure/Surger yon 04-09-2023 Consent for Procedure/Surgery [id number]#1.00CD:127 Normal [facility] Ambulatory Visit Summaryon 0 04-08-2023 Ambulatory Visit Summary KENNEDY KONG :1935 Visit Date:04/08/2023 Ambulatory Visit Instructions Your Diagnosis Asymptomatic microscopic hematuria Tests Performed Urnls Dip Stick Auto w/o Microscopy POC 04622 Your Care Team Attending Physician - KARLO CHOI, Kylie Restrepo Primary Care Physician - NESTOR ESTRELLA DO This Is Your Medications List Non-Formulary Medication (beta prostate) cefdinir (cefdinir 300 mg Cap) ciprofloxacin (Cipro 250 mg Tab) tamsulosin (Flomax 0.4 mg Cap) Procedures Performed Endoscopic destruction of bladder tumor by laser (12/13/2020), TURBT - Transurethral resection of bladder tumor (05/26/2020), Hydrocelectomy (2001), Cataract, colon resection, colonoscopy. Medications What How Much When Instructions Unchanged cefdinir (cefdinir 300 mg Cap) See instructions Unchanged ciprofloxacin (Cipro 250 mg Tab) 1 Tablets By Mouth Every day Take 1 tablet the day before the procedure and 1 tablet after the procedure Unchanged Non-Formulary Medication (beta prostate) Unchanged tamsulosin (Flomax 0.4 mg Cap) 1 Capsules By Mouth Every day Test Results Urnls Dip Stick Auto w/o Microscopy POC 91200 (04/08/2023) Bilirubin Urine Dipstick - Negative Blood Urine Dipstick - Negative Glucose Urine Dipstick - Negative Ketones Urine Dipstick - Negative Leukocytes Urine Dipstick - Negative Nitrite Urine Dipstick - Negative Protein Urine Dipstick - Negative Specific Bowers Urine Dipstick - 1.025 Urine Appearance Urine Dipstick - Clear Urine Color Urine Dipstick - Yellow Urobilinogen Urine Dipstick - Normal 0.2-1 EU/dl pH Urine Dipstick - 6.5 Allergies No Known Allergies Problems Ongoing - Any problem that you are currently receiving treatment for. 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 colon ca resection hydrocele Normal [facility] Ambulatory Visit Summaryon 0 03-11-2023 Ambulatory Visit Summary KENNEDY KONG :1935 Visit Date:03/11/2023 Ambulatory Visit Instructions Your Diagnosis Bladder cancer Tests Performed Urnls Dip Stick Auto w/o Microscopy POC 07196 Your Care Team Attending Physician - Kylie DIETRICH MD Primary Care Physician - NESTOR ESTRELLA DO This Is Your Medications List Non-Formulary Medication (beta prostate) cefdinir (cefdinir 300 mg Cap) ciprofloxacin (Cipro 250 mg Tab) tamsulosin (Flomax 0.4 mg Cap) Procedures Performed Endoscopic destruction of bladder tumor by laser (12/13/2020), TURBT - Transurethral resection of bladder tumor (05/26/2020), Hydrocelectomy (2001), Cataract, colon resection, colonoscopy. Medications What How Much When Instructions Unchanged cefdinir (cefdinir 300 mg Cap) See instructions Unchanged ciprofloxacin (Cipro 250 mg Tab) 1 Tablets By Mouth Every day Take 1 tablet the day before the procedure and 1 tablet after the procedure Unchanged Non-Formulary Medication (beta prostate) Unchanged tamsulosin (Flomax 0.4 mg Cap) 1 Capsules By Mouth Every day Test Results Urnls Dip Stick Auto w/o Microscopy POC 84261 (03/11/2023) Bilirubin Urine Dipstick - Negative Blood Urine Dipstick - 2+ Moderate Glucose Urine Dipstick - Negative Ketones Urine Dipstick - Negative Leukocytes Urine Dipstick - Negative Nitrite Urine Dipstick - Negative Protein Urine Dipstick - Negative Specific Bowers Urine Dipstick - 1.025 Urine Appearance Urine Dipstick - Clear Urine Color Urine Dipstick - Yellow Urobilinogen Urine Dipstick - Normal 0.2-1 EU/dl pH Urine Dipstick - 5.5 Allergies No Known Allergies Problems Ongoing - Any problem that you are currently receiving treatment for. 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 colon ca resection hydrocele [facility] Consent for Procedure/Surger n 03-11-2023 Consent for Procedure/Surgery [id number]#1.00CD:127 [facility] Consent for Procedure/Surgery [id number]#1.00CD:127 [facility] Consent for Procedure/Surgery [id number]#1.00CD:127 [facility] Comment on above: Other Comment: WRONG FOLDER Lab Reportson 01-15-2023 Lab Reports [id number] D:127 [facility] CNOVon 01-14-2023 [facility] Office Visit ([facility] ) KENNEDY KONG ([id number]) 1935 M Date Time Provider Department 01/14/23 3:00 PM AVEL CAMACHO [facility] During your visit today, we recorded the following information about you: Temperature Pulse Blood pressure Weight 97.5 degrees 65/minute 165/79 83.5 kg Height 1.778 m Avel Camacho MD 01/17/2023 11:00 PM Signed HPI Kennedy Kong is a 87 year old male 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 Patient states he has continued to have irregular bowel function varying between loose stools and firm. No abdominal pain at this time. He remains active. He did have an event in early October where he may have had a bowel obstruction that was managed at OSH. He did not have any intervention and it resolved on it's own. He is here to discuss options. At his last visit we discussed repeating a flex sig for some varying concerns. He did have a full colonoscopy with me in 2019 and the colon was normal with a widely patent colorectal anastomosis. There was a side to end ayers type anastomosis. PSH: Colonoscopy 11/04/2019 Findings: -The perianal and digital rectal examinations were normal. - Normal intact and patent colorectal anastomosis Last office visit 09/2021- scheduled for repeat colonoscopy and dilation due to symptoms, appointment cancelled PSH: previous colectomy for colon cancer ? date PHYSICAL EXAM BP 165/79 Pulse 65 Temp 97.5 Ht 5' 10 (1.78m) Wt 184 lb (83.5kg) SpO2 97% BMI 26.40 kg/(m2). General Appearance: Well appearing, alert, in no acute distress Abdomen: Abdomen soft, non-tender. No masses, organomegaly Assessment Irregular bowel habits Recent ?sbo Plan RECOMMENDATION - we discussed fiber supplementation. Also some reassurance that his irregular bowel habits is not unexpected with his surgical history. It is not clear to me what event he has in early Oct. From the report there was a possible sbo or colonic stricture. However following that he continued to have bowel function - We discussed that we could repeat his colonoscopy to fully assess vs. Continues to monitor his symptoms. He would like to wait at this time and will call if symptoms become more problematic. - follow up as needed. MD Micaela Dixon MA 01/14/2023 3:53 PM Signed What is the reason for your visit today? Established patient presents for reoccuring bowel obstruction. Who is your referring physician? Are you having poor oral intake? NO Have you had unintentional weight loss of 15 lbs/7 Kg in the last 3-6 months? NO Bowels: varies Wound: n/a Temperature: No Drains: No Referring Provider: AVEL CAMACHO [[id number]] Allergies As of Date: 01/14/2023 Noted Allergy Reaction AMOXICILLIN 04/28/2013 14 - Other: See Comments Comments: Pt gets sores in mouth Date Reviewed: 01/14/2023 Reviewed by: Micaela Henderson MA - Fully Assessed Reason for Visit: Established Patient Follow-Up [00152181] Cmt: Reoccuring bowel blockage Primary Visit Diagnosis:Irregular bowel habits [R19.8] Prescriptions as of 01/17/2023 - losartan potassium (LOSARTAN ORAL) Take by mouth once daily. - docusate sodium (STOOL SOFTENER) 100 mg capsule Take 100 mg by mouth as needed for constipation. - Fish Oil-DHA-EPA 1,200-144-216 mg cap Take by mouth once daily. - cyanocobalamin (VITAMIN B-12) 100 mcg tab Take 200 mcg by mouth once daily. 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 Established patient presents for reoccuring bowel obstruction. Who is your referring physician? Are you having poor oral intake? NO Have you had unintentional weight loss of 15 lbs/7 Kg in the last 3-6 months? NO Bowels: varies Wound: n/a Temperature: No Drains: No Encounter Status:Closed by AVEL CAMACHO on 01/17/23 Normal [facility] Operative Reporton 3 Operative Report [id number]:127 Normal [facility] Operative Reporton 3 Operative Report [id number]:127 Normal [facility] CBC AUTO DIFFon 12-27-2022 BASO # 0.0 103/ul Normal 0.0-0.1 [facility] ospital Comment on above: Performed By: #### C BC ####[facility] [address] [place], [place] [address]Dr. Cipriano Patton Basophils/100 WBC (Bld) 0.6 % Normal 0.2-2.0 [facility] Comment on above: Performed By: #### C BC ####[facility] Sa[address]ps[address] [place], [place] [address]Dr. Cipriano Patton EO # 0.5 103/ul Normal 0.0-0.7 [facility] Comment on above: Performed By: #### C BC ####[facility] [address] [place], [place] [address]Dr. Cipriano Patton Eosinophils/100 WBC (Bld) 7.0 % Normal 0.9-7.0 [facility] Comment on above: Performed By: #### C BC ####[facility] [address] [place], [place] [address]Dr. Cipriano Patton Erythrocyte distribution wid th (RBC) [Ratio] 13.6 % Normal 11.0-15.0 [facility] Comment on above: Performed By: #### C BC ####[facility] [address] [place], [place] [address]Dr. Cipriano Patton Hematocrit (Bld) [Volume fraction] 41.9 % Critically low 42.0-54.0 [facility] pital Comment on above: Performed By: #### C BC ####[facility] [address] [place] [id number]. Cipriano Patton Hemoglobin (Bld) [Mass/Vol] 13.7 g/dL Critically low 14.0 -18.0 The [facility] Comment on above: Performed By: #### C BC ####[facility] [address] [place] [id number]. Cipriano Patton IG # 0.01 10e3/ul Normal 0.00-0.03 [facility] Comment on above: Performed By: #### C BC ####[facility] [address] [place], [place] [address]Dr. Cipriano Patton IG % 0.2 % Normal 0.0-0.5 The [facility] Comment on above: Performed By: #### C BC ####[facility] [address] [place], [place] [address]Dr. Cipriano Patton LYMPH # 1.3 103/ul Normal 1.2-3.8 The [facility] Comment on above: Performed By: #### C BC ####[facility] [address] [place], [place] [address]Dr. Cipriano Patton Lymphocytes/100 WBC (Bld) 19.5 % Critically low 20.5-6 0.0 The [facility] Comment on above: Performed By: #### C BC ####[facility] [address] [place], [place] [address]Dr. Carolejennifer Patton MANUAL DIFF REQ NO Normal [facility] Comment on above: Performed By: #### C BC ####[facility] [address] [place], [place] [address]Dr. Cipriano Patton MCH (RBC) [Entitic mass] 29.4 pg Normal 25.9-34.0 The [facility] Comment on above: Performed By: #### C BC ####[facility] [address] [place], [place] [address]Dr. Cipriano Patton MCHC (RBC) [Mass/Vol] 32.7 g/dL Normal 29.9-35.2 [facility] Comment on above: Performed By: #### C BC ####[facility] [address] [place] [id number]. Cipriano Patton MCV (RBC) [Entitic vol] 89.9 fL Normal 80.0-94.0 [facility] Comment on above: Performed By: #### C BC ####[facility] [address] [place] [phone]. Cipriano Patton MONO # 0.9 103/ul Critically high 0.3-0.8 [facility] Comment on above: Performed By: #### C BC ####[facility] [address] [place] [phone]. Cipriano Patton Monocytes/100 WBC (Bld) 14.7 % Critically high 1.7-12. 0 [facility] Comment on above: Performed By: #### C BC ####[facility] [address] [place], [place] [address]Dr. Cipriano Patton NEUT # 3.7 103/ul Normal 1.4-6.5 The [facility] above: Performed By: #### C BC ####[facility] [address] [place], [place] [address]Dr. Cipriano Patton Neutrophils/100 WBC (Bld) 58.0 % Normal 43.0-75.0 [facility] Comment on above: Performed By: #### C BC ####[facility] X[address] [place], [place] [address]Dr. Cipriano Patton Platelet mean volume (Bld) [Entitic vol] 8.5 fL Critically low 9.5-13.5 [facility] Comment on above: Performed By: #### C BC ####[facility] [address] [place] [phone]. Cipriano Patton PLT 215 103/ul Normal 150-450 [facility] ospital Comment on above: Performed By: #### C BC ####[facility] [address] [place], [place] [address]Dr. Cipriano Patton RBC 4.66 106/ul Critically low 4.70-6.10 [facility] Comment on above: Performed By: #### C BC ####[facility] [address] [place] [phone]. Cipriano Patton WBC 6.4 103/ul Normal 4.0-11.0 The [facility] Comment on above: Performed By: #### C BC ####[facility] [address] [place] [phone]. Cipriano Patton Complete Blood Count and Dif marci 12-27-2022 Anisocytosis Ql (Bld) [facility] Ditto Other Basophilic stippling LM Ql (Bld) [facility] Ditto Other RBC morphology finding Nom (Bld) [facility] Ditto Other Complete Blood Count and Diff [facility] Ditto Other FERRITINon 12-27-2022 Ferritin [Mass/Vol] 130.0 ng/mL Normal 26.0-388.0 The [facility] Comment on above: Performed By: #### F ERR, FETIBC, B12FOL ####[facility] [address] [place] [phone]. Cipriano Patton IRON AND TIBCon 12-27-2022 Iron [Mass/Vol] 91.3360393 ug/dL 65.0-175.0 ug/ dL [facility] Ditto Other IRON AND TIBC 257.0 ug/dL 250.0-450.0 ug/dL [facility] [email or web address] Other IRON AND TIBC 35.4 % [facility] Ditto Other IRON AND TIBC see note [facility] Ditto Other % SATURATION 35.4 % Normal The [facility] Comment on above: Performed By: #### F ERR, FETIBC, B12FOL ####[facility] [address] [place] [phone]. Cipriano Patton Iron [Mass/Vol] 91.0 ug/dL Normal 65.0-175.0 [facility] Comment on above: Performed By: #### F ERR, FETIBC, B12FOL ####[facility] [address] [place] [phone]. Cipriano Patton TIBC DIRECT 257.0 ug/dL Normal 250.0-450.0 The [facility] Comment on above: Performed By: #### F ERR, FETIBC, B12FOL ####[facility] [address] [place] [phone]. Cipriano Patton VIT B12 AND FOLATEon 023 Cobalamin (Vitamin B12) [Mass/Vol] 545.5415392 pg/mL 193.0-986.0 pg/mL [facility] Ditto Other VIT B12 AND FOLATE 27.50 ng/mL 8.60-58.90 ng/mL [employer] Other Cobalamin (Vitamin B12) [Mass/Vol] 628.0 pg/mL Normal 193.0-986.0 [facility] Comment on above: Performed By: #### F ERR, FETIBC, B12FOL ####[facility] [address] [place] [address]Dr. Cipriano Patton FOLATE 27.50 ng/mL Normal 8.60-58.90 [facility] Comment on above: Performed By: #### F ERR, FETIBC, B12FOL ####[facility] [address] [place] [address]Dr. Cipriano Patton Consent for Procedure/Surger yon 12-10-2022 Consent for Procedure/Surgery [id number]:127 Normal [facility] Consent for Procedure/Surger yon 11-27-2022 Consent for Procedure/Surgery [id number]:127 Normal [facility] Operative Reporton Operative Report [id number]:127 Normal [facility] UroVysion Fish and Urine Cyt o ( Labs)on 11-13-2022 UVFISH & UC Diagnosis Info Invalid Interpretation Code [facility] Comment on above: Result Comment: A:Ur ine,Urine:Voided Diagnosis Summary - Diagnosis Summary - The UroVysion FISH study detected normal copy numbers for chromosomes 3, 7, 17, and 9p21. 25 cells were analyzed in this evaluation. No evidence of aneuploidy for chromosomes 3, 7, or 17 or deletion of the 9p21 locus was found in cells present in this specimen. This test does not rule out the possibility of a low grade non-invasive papillary urothelial carcinoma. These findings should be correlated with cytology and cystoscopy results.* Microscopic Notes - Microscopic Notes - Abnormal cells 9p21 deletions: Abnormal cells aneploid events: Total cells analyzed: 25 Hematuria: Gross Description Site ID:A color Yellow fixative Alcohol Received 90 mls of clear yellow fluid with the patient's name and, Urine on the vial. Electronically signed by : on: 11/13/2022 14:01:16 Performed By: #### 1 [id number] ####[facility] [address] [place] [address] Operative Reporton 3 Operative Report [id number]:127 Normal [facility] CBC,PLATELETSon 11-05-2022 Hematocrit (Bld) [Volume fraction] 40.7 % Normal 39.6-48.8 [facility] Comment on above: Performed By: #### M ARCHIE BIRMINGHAM CHM7 #### [facility] (DEFAULT) [address] [address] Hemoglobin (Bld) [Mass/Vol] 13.5 g/dL Normal 13.4-16. 8 [facility] Comment on above: Performed By: #### ARCHIE GREENE CHM7 #### [facility] (DEFAULT) [address] [address] MCV (RBC) [Entitic vol] 89.1 fL Normal 79.0-94.5 O [facility] Comment on above: Performed By: #### ARCHIE GREENE CHM7 #### [facility] (DEFAULT) [address] [place] [address] Mean Cell Hgb 29.5 pg Normal 26.1-33.3 [facility] Comment on above: Performed By: #### ARCHIE GREENE, CHM7 #### [facility] (DEFAULT) [address] [place] [address] Mean Cell Hgb Conc 33.2 g/dL Normal 31.9-36.5 [facility] Comment on above: Performed By: #### ARCHIE GREENE, CHM7 #### [facility] (DEFAULT) [address] [place] [address] Platelet mean volume (Bld) [Entitic vol] 9.1 fL Normal 8.7-12.3 [facility] Comment on above: Performed By: #### ARCHIE GREENE, CHM7 #### [facility] (DEFAULT) [address] [place] [address] Platelets (Bld) [#/Vol] 209 10*3/uL Normal 146-337 [facility] Comment on above: Performed By: #### ARCHIE GREENE, CHM7 #### [facility] (DEFAULT) [address] [place] [address] RBC (Bld) [#/Vol] 4.57 10*6/uL Normal 4.38-5.83 [facility] Comment on above: Performed By: #### ARCHIE GREENE, CHM7 #### [facility] (DEFAULT) [address] [place] [address] RBC Distribution 12.9 % Normal 10.9-14.3 [facility] Comment on above: Performed By: #### ARCHIE GREENE, CHM7 #### [facility] (DEFAULT) [address] [place] [address] WBC (Bld) [#/Vol] 6.15 10*3/uL Normal 3.73-10.10 [facility] Comment on above: Performed By: #### ARCHIE GREENE, CHM7 #### [facility] (DEFAULT) [address] [place] [address] CHEM 7 (LYTES,BUN,CREA,GLUC) on 11-05-2022 Anion gap [Moles/Vol] 15 mmol/L Normal 7-17 [facility] Comment on above: Performed By: #### ARCHIE GREENE, CHM7 #### [facility] (DEFAULT) [address] [place] [address] Chloride [Moles/Vol] 105 mmol/L Normal 98-108 [facility] Comment on above: Performed By: #### ARCHIE GREENE, CHM7 #### [facility] (DEFAULT) [address] [place] [address]883 CO2 [Moles/Vol] 22 mmol/L Normal 21-31 [facility] Comment on above: Performed By: #### ARCHIE GREENE, CHM7 #### [facility] (DEFAULT) [address] [place] [address] Creatinine [Mass/Vol] 1.05 mg/dL Normal 0.70-1.30 [facility] Comment on above: Performed By: #### ARCHIE GREENE, CHM7 #### [facility] (DEFAULT) [address] [place] [address] GFR/1.73 sq M.predicted among non-blacks MDRD (S/P/Bld) [Vol rate/Area] 69 mL/min/{1.73_m2} Normal >=60 [facility] Comment on above: Result Comment: Repo rted eGFR is based on the CKD-EPI 2020 equation using creatinine, age, and sex. Performed By: #### ARCHIE GREENE, CHM7 #### [facility] [facility] (DEFAULT) [address] [place] [address] 22262 Glucose [Mass/Vol] 68 mg/dL Low 70-99 [facility] Comment on above: Performed By: #### M GO, HFP, CHM7 #### [facility] (DEFAULT) [address] [place] [address] 83457 Osmolality [Osmolality] 289 mosm/kg Normal 278-305 [facility] Comment on above: Performed By: #### M VALENCIA, HFP, CHM7 #### [facility] (DEFAULT) [address] [place] [address] 55014 Potassium [Moles/Vol] 4.2 mmol/L Normal 3.5-5.0 [facility] Comment on above: Performed By: #### M VALENCIA, HFP, CHM7 #### [facility] (DEFAULT) [address] [place] [address] 66422 Sodium [Moles/Vol] 138 mmol/L Normal 135-145 [facility] Comment on above: Performed By: #### Dinora BIRMINGHAM, HFP, CHM7 #### [facility] (DEFAULT) [address] [place] [address] 11128 Urea nitrogen [Mass/Vol] 17 mg/dL Normal 7-25 [facility] Comment on above: Performed By: #### Dinora BIRMINGHAM HFP, CHM7 #### [facility] (DEFAULT) [address] [place] [address] 21745 Urea nitrogen/Creatinine [Mass ratio] 16 mg/mg Normal [facility] Comment on above: Performed By: #### Dinora BIRMINGHAM, HFP, CHM7 #### [facility] (DEFAULT) [address] [place] [address] 74848 HEPATIC FUNCTION PANELon Albumin [Mass/Vol] 3.4 g/dL Low 3.5-5.0 [facility] Comment on above: Performed By: #### M VALENCIA, HFP, CHM7 #### [facility] (DEFAULT) [address] [place] [address] 58901 ALP [Catalytic activity/Vol] 47 U/L Normal 32-126 [facility] Comment on above: Performed By: #### Dinora BIRMINGHAM, HFP, CHM7 #### [facility] (DEFAULT) [address] [place] [address] 82429 ALT [Catalytic activity/Vol] 6 U/L Low 10-52 [facility] Comment on above: Performed By: #### ARCHIE GREENE, CHM7 #### [facility] (DEFAULT) [address] [place] [address] 51946 AST [Catalytic activity/Vol] 14 U/L Normal 10-39 [facility] Comment on above: Performed By: #### ARCHIE GREENE, CHM7 #### [facility] (DEFAULT) [address] [place] [address] 60573 Bilirubin [Mass/Vol] 0.7 mg/dL Normal <1.5 [facility] Comment on above: Performed By: #### ARCHIE GREENE, CHM7 #### [facility] (DEFAULT) [address] [place] [address] 10523 Bilirubin.indirect [Mass/Vol] 0.1 mg/dL Normal <0.3 [facility] Comment on above: Performed By: #### ARCHIE GREENE, CHM7 #### [facility] (DEFAULT) [address] [place] [address] 40906 Protein [Mass/Vol] 5.9 g/dL Low 6.4-8.3 [facility] Comment on above: Performed By: #### ARCHIE GREENE, CHM7 #### [facility] (DEFAULT) [address] [place] [address] 16823 MAGNESIUMon 11-05-2022 Magnesium [Mass/Vol] 1.9 mg/dL Normal 1.6-2.6 [facility] Comment on above: Performed By: #### ARCHIE GREENE, CHM7 #### [facility] (DEFAULT) [address] [place] [address] 82673 PT,INR,PTTon 11-05-2022 aPTT Coag (Bld) [Time] 33.6 s Normal 24.0-34.3 [facility] Comment on above: Performed By: #### M ARCHIE BIRMINGHAM, CHM7 #### [facility] (DEFAULT) [address] [place] [address] 79837 INR Coag (PPP) [Relative time] 1.2 {INR} High 0.9-1 .1 [facility] Comment on above: Performed By: #### M ARCHIE BIRMINGHAM, CHM7 #### [facility] (DEFAULT) [address] [place] [address] 55244 PT Coag (PPP) [Time] 14.8 s High 11.9-14.2 [facility] Comment on above: Performed By: #### M ARCHIE BIRMINGHAM, CHM7 #### [facility] (DEFAULT) [address] [place] [address] 47016 CBC,PLATELETSon 11-04-2022 Hematocrit (Bld) [Volume fraction] 37.3 % Low 39.6-48.8 [facility] Comment on above: Performed By: #### H EMOGC #### [facility] (DEFAULT) [address] [place] [address] 59089 Hemoglobin (Bld) [Mass/Vol] 12.5 g/dL Low 13.4-16. 8 [facility] Comment on above: Performed By: #### H EMOGC #### [facility] (DEFAULT) [address] [place] [address] 87848 MCV (RBC) [Entitic vol] 88.4 fL Normal 79.0-94.5 O [facility] Comment on above: Performed By: #### H EMOGC #### [facility] (DEFAULT) [address] [place] [address] 84481 Mean Cell Hgb 29.6 pg Normal 26.1-33.3 [facility] Comment on above: Performed By: #### H EMOGC #### [facility] (DEFAULT) [address] [place] [address] 79158 Mean Cell Hgb Conc 33.5 g/dL Normal 31.9-36.5 [facility] Comment on above: Performed By: #### H EMOGC #### [facility] (DEFAULT) [address] [place] [address] 93401 Platelet mean volume (Bld) [Entitic vol] 9.0 fL Normal 8.7-12.3 [facility] Comment on above: Performed By: #### H EMOGC #### [facility] (DEFAULT) [address] [place] [address] 28856 Platelets (Bld) [#/Vol] 198 10*3/uL Normal 146-337 [facility] Comment on above: Performed By: #### H EMO #### [facility] (DEFAULT) [address] [place] [address] 48657 RBC (Bld) [#/Vol] 4.22 10*6/uL Low 4.38-5.83 [facility] Comment on above: Performed By: #### H EMOGC #### [facility] (DEFAULT) [address] [place] [address] 87926 RBC Distribution 12.9 % Normal 10.9-14.3 [facility] Comment on above: Performed By: #### H EMOGC #### [facility] (DEFAULT) [address] [place] [address] 41752 WBC (Bld) [#/Vol] 5.77 10*3/uL Normal 3.73-10.10 [facility] Comment on above: Performed By: #### H EMOGC #### [facility] (DEFAULT) [address] [place] [address] 91586 CHEM 7 (LYTES,BUN,CREA,GLUC) on 11-04-2022 Anion gap [Moles/Vol] 10 mmol/L Normal 7-17 [facility] Comment on above: Performed By: #### M GO, HFP, CHM7 #### [facility] (DEFAULT) [address] [place] [address] 73531 Chloride [Moles/Vol] 108 mmol/L Normal 98-108 [facility] Comment on above: Performed By: #### ARCHIE GREENE CHM7 #### [facility] (DEFAULT) [address] [place] [address] 99260 CO2 [Moles/Vol] 22 mmol/L Normal 21-31 [facility] Comment on above: Performed By: #### ARCHIE GREENE CHM7 #### [facility] (DEFAULT) [address] [place] [address] 36264 Creatinine [Mass/Vol] 0.91 mg/dL Normal 0.70-1.30 [facility] Comment on above: Performed By: #### ARCHIE GREENE CHM7 #### [facility] (DEFAULT) [address] [place] [address] 64938 GFR/1.73 sq M.predicted among non-blacks MDRD (S/P/Bld) [Vol rate/Area] 82 mL/min/{1.73_m2} Normal >=60 [facility] Comment on above: Result Comment: Repo rted eGFR is based on the CKD-EPI 2020 equation using creatinine, age, and sex. Performed By: #### ARCHIE GREENE CHM7 #### [facility] (DEFAULT) [address] [place] [address] 86153 Glucose [Mass/Vol] 81 mg/dL Normal 70-99 [facility] Comment on above: Performed By: #### ARCHIE GREENE CHM7 #### [facility] (DEFAULT) [address] [place] [address] 00379 Osmolality [Osmolality] 285 mosm/kg Normal 278-305 [facility] Comment on above: Performed By: #### ARCHIE GREENE CHM7 #### [facility] (DEFAULT) [address] [place] [address] 21697 Potassium [Moles/Vol] 4.0 mmol/L Normal 3.5-5.0 [facility] Comment on above: Performed By: #### ARCHIE GREENE CHM7 #### [facility] (DEFAULT) [address] [place] [address] Sodium [Moles/Vol] 136 mmol/L Normal 135-145 [facility] Comment on above: Performed By: #### M ARCHIE BIRMINGHAM, CHM7 #### [facility] (DEFAULT) [address] [place] [address] Urea nitrogen [Mass/Vol] 15 mg/dL Normal 7-25 [facility] Comment on above: Performed By: #### M ARCHIE BIRMINGHAM, CHM7 #### [facility] (DEFAULT) [address] [place] [address] Urea nitrogen/Creatinine [Mass ratio] 16 mg/mg Normal [facility] Comment on above: Performed By: #### M ARCHIE BIRMINGHAM, CHM7 #### [facility] (DEFAULT) [address] [place] [address] ABDOMEN/ABDOMEN-PELVIS (I NTERPRETATION - OUTSIDE IMAGE)on 11-04-2022 CT ABDOMEN/ABDOMEN-PELVIS (INTERPRETATION - OUTSIDE IMAGE) EXAM: CT ABDOMEN/ABDOMEN-PELVIS (INTERPRETATION - OUTSIDE IMAGE), 11/04/2022 10:11 AM DATE- OUTSIDE STUDY PERFORMED: November 03, 2022 COMPARISON: No prior studies available for comparison. CLINICAL INDICATIONS: Reason for Exam:->87 year old w/ hx colon cancer s/p resection. Admitted for abdominal pain, constipation. Requesting read of OSH images to r/o obstruction/volvulus. DISCLAIMER: This is an interpretation of images obtained at an outside imaging facility. This report refers only to the anatomic area or body part in the study description, as requested. STUDY DESCRIPTION: CT abdomen and pelvis with contrast TECHNIQUE: CT images of the abdomen and pelvis were performed following the administration of intravenous contrast. FINDINGS: Lung Bases: Minimal dependent atelectasis. Upper normal heart size. Coronary artery calcifications. ABDOMEN Liver: Scattered benign cysts and calcified granulomas. No worrisome observation. Biliary/Gallbladder: Normal. Spleen: Normal with benign calcified granulomas. Pancreas: Normal. Adrenals: Normal. Kidneys: Normal. Retroperitoneal/Vasculature: No enlarged lymph nodes. Few surgical clips in the retroperitoneum along the left psoas muscle. Mild atherosclerotic calcification of the abdominal aorta. Major branch vessels are patent. The portal, splenic, and superior mesenteric veins are patent. Gastrointestinal/Mesentery: Rectal anastomosis without appreciable recurrent mass. No colonic dilation. Is air and stool in normal caliber colon. Proximal and mid small bowel are minimally distended with fluid and enteric contrast. A fluid-filled small bowel loop (series 3, image 86) measures approximately 3.5 cm in the right lower quadrant. A gas-filled loop of small bowel in the right mid abdomen (series 3, image 46) measures up to 3.8 cm. I aunable to define a clear transition point from mildly dilated to normal caliber small bowel. Small right femoral hernia (series 3, image 122) does not appear to be a site of transition. No bowel wall thickening, pneumatosis, portal venous gas, or pneumoperitoneum. No abscess. PELVIS Bladder: Normal. Genital: The prostate and seminal vesicles are unremarkable. Bony Structures: Degenerative changes of the spine. No suspicious lesion. IMPRESSION: 1. Suspect early/partial small bowel obstruction versus ileus. A transition point is not clearly visible. Small right femoral hernia with a few small bowel loops does not appear to be a site of obstruction. 2. 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 No findings of metastatic disease in the abdomen or pelvis. Normal [facility] HEPATIC FUNCTION PANELon Albumin [Mass/Vol] 3.2 g/dL Low 3.5-5.0 [facility] Comment on above: Performed By: #### M ARCHIE BIRMINGHAM CHM7 #### [facility] (DEFAULT) [address] [address] ALP [Catalytic activity/Vol] 41 U/L Normal 32-126 [facility] Comment on above: Performed By: #### M ARCHIE BIRMINGHAM CHM7 #### [facility] (DEFAULT) [address] [address] ALT [Catalytic activity/Vol] 7 U/L Low 10-52 [facility] Comment on above: Performed By: #### M ARCHIE BIRMINGHAM CHM7 #### [facility] (DEFAULT) [address] [place] [address] 70919 AST [Catalytic activity/Vol] 13 U/L Normal 10-39 [facility] Comment on above: Performed By: #### ARCHIE GREENE, CHM7 #### [facility] (DEFAULT) [address] [place] [address] 42732 Bilirubin [Mass/Vol] 0.6 mg/dL Normal <1.5 [facility] Comment on above: Performed By: #### ARCHIE GREENE, CHM7 #### [facility] (DEFAULT) [address] [place] [address] 54601 Bilirubin.indirect [Mass/Vol] 0.1 mg/dL Normal <0.3 [facility] Comment on above: Performed By: #### ARCHIE GREENE, CHM7 #### [facility] (DEFAULT) [address] [place] [address] 18768 Protein [Mass/Vol] 5.6 g/dL Low 6.4-8.3 [facility] Comment on above: Result Comment: Resu lts inconsistent with previous results Performed By: #### ARCHIE GREENE, CHM7 #### [facility] (DEFAULT) [address] [place] [address] 01480 MAGNESIUMon 11-04-2022 Magnesium [Mass/Vol] 1.8 mg/dL Normal 1.6-2.6 [facility] Comment on above: Performed By: #### ARCHIE GREENE, CHM7 #### [facility] (DEFAULT) [address] [place] [address] 87274 PT,INR,PTTon 11-04-2022 aPTT Coag (Bld) [Time] 31.9 s Normal 24.0-34.3 [facility] Comment on above: Performed By: #### P TPTT #### [facility] (DEFAULT) [address] [place] [address] 85374 INR Coag (PPP) [Relative time] 1.1 {INR} Normal 0.9-1 .1 [facility] Comment on above: Performed By: #### P TPTT #### [facility] (DEFAULT) [address] [place] [address] 24787 PT Coag (PPP) [Time] 14.3 s High 11.9-14.2 [facility] Comment on above: Performed By: #### P TPTT #### [facility] (DEFAULT) [address] [place] [address] 04530 CALCIUMon 11-03-2022 Calcium [Mass/Vol] 9.4 mg/dL Normal 8.6-10.5 [facility] Comment on above: Performed By: #### M VALENCIA, HFP, CHM7 #### [facility] (DEFAULT) [address] [place] [address] 00810 CBC AND ELECTRONIC DIFFon Abs Baso Auto < Normal 0.00-0.09 [facility] Comment on above: Performed By: #### L [id number] #### [facility] (DEFAULT) [address] [place] [address] 05074 Basophils/100 WBC (Bld) 0.2 % Normal O [facility] Comment on above: Performed By: #### L [id number] #### [facility] (DEFAULT) [address] [place] [address] 17474 DIFF STATUS Electronic Differential Normal [facility] Comment on above: Performed By: #### L [id number] #### [facility] (DEFAULT) [address] [place] [address] 86037 Eosinophils (Bld) [#/Vol] 0.25 10*3/uL Normal 0.00-0.4 8 [facility] Comment on above: Performed By: #### L [id number] #### [facility] (DEFAULT) [address] [place] [address] 44587 Eosinophils/100 WBC (Bld) 3.0 % Normal [facility] Comment on above: Performed By: #### L [id number] #### [facility] (DEFAULT) [address] [place] [address] 51595 Hematocrit (Bld) [Volume fraction] 43.6 % Normal 39.6-48.8 [facility] Comment on above: Performed By: #### L [id number] #### [facility] (DEFAULT) [address] [address] Hemoglobin (Bld) [Mass/Vol] 14.5 g/dL Normal 13.4-16. 8 [facility] Comment on above: Performed By: #### L [id number] #### [facility] (DEFAULT) [address] [address] Immature Grans % 0.2 % Normal [facility] Comment on above: Performed By: #### L [id number] #### [facility] (DEFAULT) [address] [address] Immature Grans Absolute < Normal <=0.07 O [facility] Comment on above: Performed By: #### L [id number] #### [facility] (DEFAULT) [address] [address] Lymphocytes (Bld) [#/Vol] 1.05 10*3/uL Normal 0.83-3.5 7 [facility] Comment on above: Performed By: #### L [id number] #### [facility] (DEFAULT) [address] [address] Lymphocytes/100 WBC (Bld) 12.5 % Normal [facility] Comment on above: Performed By: #### L [id number] #### [facility] (DEFAULT) [address] [address] MCV (RBC) [Entitic vol] 89.0 fL Normal 79.0-94.5 O [facility] Comment on above: Performed By: #### L [id number] #### [facility] (DEFAULT) [address] [address] Mean Cell Hgb 29.6 pg Normal 26.1-33.3 [facility] Comment on above: Performed By: #### L [id number] #### [facility] (DEFAULT) [address] [address] Mean Cell Hgb Conc 33.3 g/dL Normal 31.9-36.5 [facility] Comment on above: Performed By: #### L [id number] #### [facility] (DEFAULT) [address] [address] Monocytes (Bld) [#/Vol] 1.15 10*3/uL High 0.24-0.93 [facility] Comment on above: Performed By: #### L [id number] #### [facility] (DEFAULT) [address] [address] Monocytes/100 WBC (Bld) 13.7 % Normal O [facility] Comment on above: Performed By: #### L [id number] #### [facility] (DEFAULT) [address] [address] Nucleated RBC 0.0 /100 WBC Normal <=0.2 [facility] Comment on above: Performed By: #### L [id number] #### [facility] (DEFAULT) [address] [address] Platelet mean volume (Bld) [Entitic vol] 8.8 fL Normal 8.7-12.3 [facility] Comment on above: Performed By: #### L [id number] #### [facility] (DEFAULT) [address] [address] Platelets (Bld) [#/Vol] 223 10*3/uL Normal 146-337 [facility] Comment on above: Performed By: #### L [id number] #### [facility] (DEFAULT) [address] [address] RBC (Bld) [#/Vol] 4.90 10*6/uL Normal 4.38-5.83 [facility] Comment on above: Performed By: #### L [id number] #### [facility] (DEFAULT) [address] [place] [address] 29204 RBC Distribution 12.9 % Normal 10.9-14.3 [facility] Comment on above: Performed By: #### L [id number] #### [facility] (DEFAULT) [address] [address] Segs + Bands Auto 70.4 % Normal [facility] Comment on above: Performed By: #### L [id number] #### [facility] (DEFAULT) [address] [address] Segs + Bands,Absolute Auto 5.91 K/uL Normal 1.57-6.19 [facility] Comment on above: Performed By: #### L [id number] #### [facility] (DEFAULT) [address] [address] WBC (Bld) [#/Vol] 8.40 10*3/uL Normal 3.73-10.10 [facility] Comment on above: Performed By: #### L [id number] #### [facility] (DEFAULT) [address] [address] CBC AUTO DIFFon 11-03-2022 BASO # 0.0 103/ul Normal 0.0-0.1 [facility] Comment on above: Performed By: #### C BC #### [facility] [address] [place] [address] Dr. Cipriano Patton Basophils/100 WBC (Bld) 0.3 % Normal 0.2-2.0 [facility] Comment on above: Performed By: #### C BC #### [facility] [address] [place] [address] Dr. Cipriano Patton EO # 0.3 103/ul Normal 0.0-0.7 [facility] Comment on above: Performed By: #### C BC #### [facility] [address] [place] [address] Dr. Cipriano Patton Eosinophils/100 WBC (Bld) 4.0 % Normal 0.9-7.0 [facility] Comment on above: Performed By: #### C BC #### [facility] [address] [place] [address] Dr. Cipriano Patton Erythrocyte distribution wid th (RBC) [Ratio] 13.1 % Normal 11.0-15.0 [facility] Comment on above: Performed By: #### C BC #### [facility] [address] [place] [address] Dr. Cipriano Patton Hematocrit (Bld) [Volume fraction] 41.6 % Critically low 42.0-54.0 [facility] Comment on above: Performed By: #### C BC #### [facility] [address] [place] [address] Dr. Cipriano Patton Hemoglobin (Bld) [Mass/Vol] 14.1 g/dL Normal 14.0-18. 0 [facility] Comment on above: Performed By: #### C BC #### [facility] [address] [place] [address] Dr. Cipriano Patton IG # 0.02 10e3/ul Normal 0.00-0.03 [facility] Comment on above: Performed By: #### C BC #### [facility] [address] [place] [address] Dr. Cipriano Patton IG % 0.3 % Normal 0.0-0.5 [facility] Comment on above: Performed By: #### C BC #### [facility] [address] [place] [address] Dr. Cipriano Patton LYMPH # 1.0 103/ul Critically low 1.2-3.8 [facility] Comment on above: Performed By: #### C BC #### [facility] [address] [place] [address] Dr. Cipriano Patton Lymphocytes/100 WBC (Bld) 13.0 % Critically low 20.5-6 0.0 [facility] Comment on above: Performed By: #### C BC #### [facility] [address] [place] [address] Dr. Cipriano Patton MANUAL DIFF REQ NO Normal [facility] Comment on above: Performed By: #### C BC #### [facility] [address] [place] [address] Dr. Cipriano Patton MCH (RBC) [Entitic mass] 29.6 pg Normal 25.9-34.0 [facility] Comment on above: Performed By: #### C BC #### [facility] [address] [place] [address] Dr. Cipriano Patton MCHC (RBC) [Mass/Vol] 33.9 g/dL Normal 29.9-35.2 [facility] Comment on above: Performed By: #### C BC #### [facility] [address] [place] [address] Dr. Cipriano Patton MCV (RBC) [Entitic vol] 87.2 fL Normal 80.0-94.0 [facility] Comment on above: Performed By: #### C BC #### [facility] [address] [place] [address] Dr. Cipriano Patton MONO # 0.9 103/ul Critically high 0.3-0.8 [facility] Comment on above: Performed By: #### C BC #### [facility] [address] [place] [address] Dr. Cipriano Patton Monocytes/100 WBC (Bld) 12.9 % Critically high 1.7-12. 0 [facility] Comment on above: Performed By: #### C BC #### [facility] [address] [place] [address] Dr. Cipriano Patton NEUT # 5.1 103/ul Normal 1.4-6.5 [facility] Comment on above: Performed By: #### C BC #### [facility] [address] [place] [address] Dr. Cipriano Patton Neutrophils/100 WBC (Bld) 69.5 % Normal 43.0-75.0 [facility] Comment on above: Performed By: #### C BC #### [facility] [address] [place] [address] Dr. Cipriano Patton Platelet mean volume (Bld) [Entitic vol] 8.7 fL Critically low 9.5-13.5 [facility] pital Comment on above: Performed By: #### C BC #### [facility] [address] [place] [address] Dr. Cipriano Patton PLT 216 103/ul Normal 150-450 [facility] ospital Comment on above: Performed By: #### C BC #### [facility] [address] [address] [address] Cipriano Patton RBC 4.77 106/ul Normal 4.70-6.10 [facility] Comment on above: Performed By: #### C BC #### [facility] [address] [place] [address] Dr. Cipriano Patton WBC 7.3 103/ul Normal 4.0-11.0 [facility] ospital Comment on above: Performed By: #### C BC #### [facility] [address] [place] [address] Dr. Cipriano Patton CHM 7 - EDon 11-03-2022 Anion gap [Moles/Vol] 11 mmol/L Normal 7-17 [facility] Comment on above: Performed By: #### ARCHIE GREENE, CHM7 #### [facility] (DEFAULT) [address] [address] Chloride [Moles/Vol] 105 mmol/L Normal 98-108 [facility] Comment on above: Performed By: #### ARCHIE GREENE, CHM7 #### [facility] (DEFAULT) [address] [address] CO2 [Moles/Vol] 27 mmol/L Normal 21-31 [facility] Comment on above: Performed By: #### ARCHIE GREENE, CHM7 #### [facility] (DEFAULT) [address] [address] Creatinine [Mass/Vol] 1.02 mg/dL Normal 0.70-1.30 [facility] Comment on above: Performed By: #### ARCHIE GREENE, CHM7 #### [facility] (DEFAULT) [address] [place] [address] GFR/1.73 sq M.predicted among non-blacks MDRD (S/P/Bld) [Vol rate/Area] 72 mL/min/{1.73_m2} Normal >=60 [facility] Comment on above: Result Comment: Repo rted eGFR is based on the CKD-EPI 2020 equation using creatinine, age, and sex. Performed By: #### ARCHIE GREENE, CHM7 #### [facility] (DEFAULT) [address] [place] [address] Glucose [Mass/Vol] 97 mg/dL Normal 70-99 [facility] Comment on above: Performed By: #### ARCHIE GREENE, CHM7 #### [facility] (DEFAULT) [address] [place] [address] Osmolality [Osmolality] 291 mosm/kg Normal 278-305 [facility] Comment on above: Performed By: #### ARCHIE GREENE, CHM7 #### [facility] (DEFAULT) [address] [place] [address] Potassium [Moles/Vol] 4.6 mmol/L Normal 3.5-5.0 [facility] Comment on above: Performed By: #### ARCHIE GREENE, CHM7 #### [facility] (DEFAULT) [address] [place] [address] Sodium [Moles/Vol] 138 mmol/L Normal 135-145 [facility] Comment on above: Performed By: #### ARCHIE GREENE, CHM7 #### [facility] (DEFAULT) [address] [place] [address] Urea nitrogen [Mass/Vol] 16 mg/dL Normal 7-25 [facility] Comment on above: Performed By: #### Dinora BIRMINGHAM HFP, CHM7 #### [facility] (DEFAULT) [address] [place] [address] Urea nitrogen/Creatinine [Mass ratio] 16 mg/mg Normal [facility] Comment on above: Performed By: #### M , [employer], CHM7 #### [facility] (DEFAULT) [address] [place] [address] ABD/PELV W CONon 11-03-19 CT ABD/PELV W CON EXAMINATION: CT ABD/ PELV W CON 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; 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 notes state history of colon carcinoma and bowel resection. COMPARISON: CT abdomen/pelvis dated 08/21/2021. TECHNIQUE: Routine CT abdomen/pelvis with intravenous and oral contrast. Dose reduction techniques were achieved by using automated exposure control and/or adjustment of mA and/or kV according to patient size and/or use of iterative reconstruction technique. FINDINGS: Coronary artery and aortic valvular calcification. Atheromatous calcification descending thoracic aorta. Dependent atelectasis lower chest bilaterally. There are stable hypodense lesions within the liver which most likely represent cysts, largest measuring 1.8 cm left lobe (13 Hounsfield units) and 0.8 cm right lobe (16 Hounsfield units). The gallbladder and biliary tree are unremarkable. The pancreas is unremarkable. There are numerous scattered calcified granuloma within the spleen. The bilateral adrenal glands are unremarkable. There is mild pelvocaliectasis bilaterally and mild hydroureter of the proximal left ureter. The mid ureters are obscured. The distal ureters are unremarkable. Bowel: There is stable circumferential thickening of the rectum with stable perirectal stranding density which may part be related to the previous surgery. Correlation with clinical findings recommended to exclude a proctitis or rectal mass. There are postop changes at the rectosigmoid junction. There is a moderate amount of gas and stool within the ascending and transverse colon however at the level of the splenic flexure, the descending and sigmoid colon are collapsed. These findings are similar to the previous examination and a well-defined mass lesion is not seen at the point of transition. The appendix is not identified. The distal esophagus is unremarkable. There is a moderate air-fluid level within the gastric fundus. The gastric body and antrum are collapsed. The duodenum is unremarkable. There is fluid, contrast and air-fluid levels within dilated jejunal and proximal/mid ileal small bowel loops. The distal ileal small bowel loops are collapsed. Findings are consistent with a developing small bowel obstruction. There is a right femoral hernia containing a loop of small bowel however this does not appear obstructing (series 3 image 121). The appendix is unremarkable. Inflammation: There is no free air or free fluid. Lymphadenopathy: There are no pathologically enlarged lymph nodes within the abdomen/pelvis. Vasculature: Atheromatous calcification abdominal aorta and iliac arteries. Atheromatous calcification common femoral arteries. The inferior vena cava is unremarkable. Pelvis: The distended urinary bladder is unremarkable. The prostate gland is mild to moderately enlarged. There is mesenteric fat extending into the left inguinal canal. Osseous: Mild dextroscoliosis of the lumbar spine. Degenerative changes throughout the thoracolumbar spine. IMPRESSION: There is stable circumferential thickening of the rectum with stable perirectal stranding density which may part be related to the previous surgery. Correlation with clinical findings recommended to exclude a proctitis or rectal mass. There are postop changes at the rectosigmoid junction. There is a moderate amount of gas and stool within the ascending and transverse colon however at the level of the splenic flexure, the descending and sigmoid colon are collapsed. These findings are similar to the previous examination and a well-defined mass lesion is not seen at the point of transition. The appendix is not identified. The distal esophagus is unremarkable. There is a moderate air-fluid level within the gastric fundus. The gastric body and antrum are collapsed. The duodenum is unremarkable. There is fluid, contrast and air-fluid levels within dilated jejunal and proximal/mid ileal small bowel loops. The distal ileal small bowel loops are collapsed. Findings are consistent with a developing small bowel obstruction. There is a right femoral hernia containing a loop of small bowel however this does not appear obstructing (series 3 image 121). Findings are consistent with a developing small bowel obstruction. Additional findings as described in the body the report. Electronically authenticated by: ANKIT DANIEL Date: 2022-11-03 11:55 Normal [facility] HEPATIC FUNCTION PANELon Albumin [Mass/Vol] 3.9 g/dL Normal 3.5-5.0 [facility] Comment on above: Performed By: #### M GO, [employer], CHM7 #### [facility] (DEFAULT) [address] [address] ALP [Catalytic activity/Vol] 49 U/L Normal 32-126 [facility] Comment on above: Performed By: #### M VALENCIA, HFP, CHM7 #### [facility] (DEFAULT) [address] [place] [address] ALT [Catalytic activity/Vol] 8 U/L Low 10-52 [facility] Comment on above: Performed By: #### M VALENCIA, HFP, CHM7 #### [facility] (DEFAULT) [address] [place] [address] AST [Catalytic activity/Vol] 14 U/L Normal 10-39 [facility] Comment on above: Performed By: #### M VALENCIA, HFP, CHM7 #### [facility] (DEFAULT) [address] [place] [address] Bilirubin [Mass/Vol] 0.6 mg/dL Normal <1.5 [facility] Comment on above: Performed By: #### M VALENCIA, HFP, CHM7 #### [facility] (DEFAULT) [address] [place] [address] Bilirubin.indirect [Mass/Vol] 0.1 mg/dL Normal <0.3 [facility] Comment on above: Performed By: #### M VALENCIA, HFP, CHM7 #### [facility] (DEFAULT) [address] [place] [address] Protein [Mass/Vol] 6.8 g/dL Normal 6.4-8.3 [facility] Comment on above: Performed By: #### M VALENCIA, HFP, CHM7 #### [facility] (DEFAULT) [address] [place] [address] LACTATE, WHOLE BLOODon 11-03 Lactate, Whole Blood 1.1 mmol/L Normal 0.5-1.6 [facility] Comment on above: Performed By: #### B GLACT #### [facility] (DEFAULT) [address] [place] [address] LIPASEon 11-03-2022 Lipase [Catalytic activity/Vol] 13 U/L Normal 11-8 2 [facility] Comment on above: Performed By: #### ARCHIE GREENE, CHM7 #### [facility] (DEFAULT) [address] [place] [address] MAGNESIUMon 11-03-2022 Magnesium [Mass/Vol] 2.0 mg/dL Normal 1.6-2.6 [facility] Comment on above: Performed By: #### ARCHIE GREENE, CHM7 #### [facility] (DEFAULT) [address] [place] [address] PHOSPHATE, INORGANICon 11-03 Phosphorous 3.3 mg/dL Normal 2.2-4.6 [facility] Comment on above: Performed By: #### ARCHIE GREENE, CHM7 #### [facility] (DEFAULT) [address] [place] [address] PROF 14(COMP METB)on 023 Albumin [Mass/Vol] 3.4 g/dL Normal 3.4-5.0 [facility] Comment on above: Performed By: #### C MP #### [facility] [address] [address] [address] Cipriano Patton Albumin/Globulin [Mass ratio] 1.0 {ratio} Normal [facility] Comment on above: Performed By: #### C MP #### [facility] [address] [place] [address] Dr. Cipriano Patton ALP [Catalytic activity/Vol] 53 U/L Normal 46-116 [facility] Comment on above: Performed By: #### C MP #### [facility] [address] [address] [address] Cipriano Patton ALT [Catalytic activity/Vol] 13 U/L Critically low 16- 63 [facility] Comment on above: Performed By: #### C MP #### [facility] [address] [address] [address] Cipriano Patton Anion gap [Moles/Vol] 9.3 mmol/L Normal [facility] Comment on above: Performed By: #### C MP #### [facility] [address] [address] [address] Cipriano Patton AST [Catalytic activity/Vol] 24 U/L Normal 15-37 [facility] Comment on above: Performed By: #### C MP #### [facility] [address] [place] [address] Dr. Cipriano Patton Bilirubin [Mass/Vol] 0.5 mg/dL Normal 0.2-1.0 [facility] Comment on above: Performed By: #### C MP #### [facility] [address] [place] [address] Dr. Cipriano Patton Calcium [Mass/Vol] 9.2 mg/dL Normal 8.5-10.1 [facility] Comment on above: Performed By: #### C MP #### [facility] [address] [place] [address] Dr. Cipriano Patton Chloride [Moles/Vol] 105 mmol/L Normal 98-107 [facility] Comment on above: Performed By: #### C MP #### [facility] [address] [place] [address] Dr. Cipriano Patton CO2 [Moles/Vol] 30.4 mmol/L Normal 21.0-32.0 [facility] Comment on above: Performed By: #### C MP #### [facility] [address] [place] [address] Dr. Cipriano Patton Creatinine [Mass/Vol] 1.02 mg/dL Normal 0.70-1.30 [facility] Comment on above: Performed By: #### C MP #### [facility] [address] [place] [address] Dr. Cipriano Patton EGFR-AF BANGLADESHI >60 Normal >=60 [facility] Comment on above: Performed By: #### C MP #### [facility] [address] [place] [address] Dr. Cipriano Patton EGFR-NON AF BANGLADESHI >60 Normal >=60 [facility] Comment on above: Performed By: #### C MP #### [facility] [address] [place] [address] Dr. Cipriano Patton Globulin (S) [Mass/Vol] 3.3 g/dL Normal [facility] Comment on above: Performed By: #### C MP #### [facility] [address] [place] [address] Dr. Cipriano Patton Glucose [Mass/Vol] 92 mg/dL Normal 74-106 [facility] Comment on above: Performed By: #### C MP #### [facility] [address] [address] [address] Cipriano Patton Potassium [Moles/Vol] 4.7 mmol/L Normal 3.5-5.1 [facility] Comment on above: Performed By: #### C MP #### [facility] [address] [place] [address] Dr. Cipriano Patton Protein [Mass/Vol] 6.7 g/dL Normal 6.4-8.2 [facility] Comment on above: Performed By: #### C MP #### [facility] [address] [place] [address] Dr. Cipriano Patton Sodium [Moles/Vol] 140 mmol/L Normal 136-145 [facility] Comment on above: Performed By: #### C MP #### [facility] [address] [place] [address] Dr. Cipriano Patton Urea nitrogen [Mass/Vol] 18.0 mg/dL Normal 7.0-18.0 [facility] Comment on above: Performed By: #### C MP #### [facility] [address] [place] [address] Dr. Cipriano Patton Urea nitrogen/Creatinine [Mass ratio] 17.6 mg/mg Normal [facility] Comment on above: Performed By: #### C MP #### [facility] [address] [address] [address] Cipriano Patton URINALYSISon 11-03-2022 Appearance (U) Clear Normal Clear [facility] Comment on above: Performed By: #### U RIN #### [facility] (DEFAULT) [address] [place] [address] Bacteria ABSENT Normal ABSENT [facility] Comment on above: Performed By: #### U RIN #### [facility] (DEFAULT) [address] [place] [address] Blood Urine Moderate Abnormal Negative [facility] Comment on above: Performed By: #### U RIN #### [facility] (DEFAULT) [address] [place] [address] Color (U) Yellow Normal Yellow [facility] Comment on above: Performed By: #### U RIN #### [facility] (DEFAULT) [address] [place] [address] Glucose Ql (U) Negative Normal Negative [facility] Comment on above: Performed By: #### U RIN #### [facility] (DEFAULT) [address] [place] [address] Ketones Ql (U) Trace Abnormal Negative [facility] Comment on above: Performed By: #### U RIN #### [facility] (DEFAULT) [address] [place] [address] Leukocyte esterase Test stri p Ql (U) Negative Normal Negative [facility] Comment on above: Performed By: #### U RIN #### [facility] (DEFAULT) [address] [place] [address] Nitrites Urine Negative Normal Negative [facility] Comment on above: Performed By: #### U RIN #### [facility] (DEFAULT) [address] [place] [address] pH (U) 5.5 [pH] Normal 5.0-7.0 [facility] Comment on above: Performed By: #### U RIN #### [facility] (DEFAULT) [address] [place] [address] Protein Urine Negative Normal Negative [facility] Comment on above: Performed By: #### U RIN #### [facility] (DEFAULT) [address] [place] [address] RBC Urine 6-9 Abnormal 0-2 [facility] Comment on above: Performed By: #### U RIN #### [facility] (DEFAULT) [address] [place] [address] Specific Bowers Urine <= Normal >1.001-<1.035 [facility] Comment on above: Performed By: #### U RIN #### [facility] (DEFAULT) [address] [place] [address] Squamous/Epithelial Cells 1/hpf = 1+ Normal 1/ hpf = 1+, 2-5/hpf = 2+, 0/hpf = 0+, ABSENT [facility] Comment on above: Performed By: #### U RIN #### [facility] (DEFAULT) [address] [place] [address] Urobilinogen Urine 0.2 E.U./dL Normal 0.2 E.U/dL, 1.0 E.U/dL [facility] Comment on above: Performed By: #### U RIN #### [facility] (DEFAULT) [address] [place] [address] WBC Urine 0-5 Normal 0-5 [facility] Comment on above: Performed By: #### U RIN #### [facility] (DEFAULT) [address] [place] [address] URINE CULTUREon 11-03-2022 Bacteria identified Cx Nom (U) No significant growth. Routine cultures are evaluated for significant uro-pathogens >=10,000 CFU/mL Normal [facility] Comment on above: Order Comment: For i ndwelling catheters, specimen collection is acceptable on catheter day 1 and 2 only. Jauregui top vacutainer. Urine must be to the fill line to process (4mls). If minimum volume, send urine in a yellow top vacutainer tube. Performed By: #### U R #### [facility] (DEFAULT) [address] [place] [address]60 XR ABD FLAT UP_PA Lobo 11-03 XR ABD FLAT UP_PA CH EXAM: XR ABD FLAT U P_PA CH 11/03/2022. HISTORY: CONSTIPATION, UNSPECIFIED COMPARISON: CT scan abdomen and pelvis 08/21/2021. TECHNIQUE: Frontal view of the chest and an upright and supine view of the abdomen were obtained. FINDINGS: Chest: The heart appears within normal limits in size. No focal consolidation, pleural effusion, pneumothorax or evidence of congestive heart failure seen. Incidental note is made of nipple shadows projecting over the lung bases bilaterally. ABDOMEN: No free air is seen. The bowel gas pattern appears nonobstructive. There is a moderate amount of stool in the descending colon. There are multiple surgical clips in the left side of the abdomen and the pelvis. There are calcified phleboliths within the pelvis. 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 IMPRESSION: 1. No radiographic evidence of active cardiopulmonary disease is seen. 2. There is a moderate amount of stool in the ascending colon, but there is no significant amount stool seen throughout the remainder of the colon and rectum. The bowel gas pattern appears nonobstructive. Electronically authenticated by: MANAV READER Date: 2022-11-03 09:52 Normal [facility] Ambulatory Visit Summaryon 0 11-02-2022 Ambulatory Visit Summary KENNEDY KONG :1935 Visit Date:09/20/2022 Ambulatory Visit Instructions Your Care Team Attending Physician - Kylie DIETRICH MD Primary Care Physician - NESTOR ESTRELLA DO This Is Your Medications List Non-Formulary Medication (beta prostate) cefdinir (cefdinir 300 mg Cap) ciprofloxacin (Cipro 250 mg Tab) tamsulosin (Flomax 0.4 mg Cap) Procedures Performed Endoscopic destruction of bladder tumor by laser (12/13/2020), TURBT - Transurethral resection of bladder tumor (05/26/2020), Hydrocelectomy (2001), Cataract, colon resection, colonoscopy. Medications What How Much When Instructions Changed ciprofloxacin (Cipro 250 mg Tab) 1 Tablets By Mouth Every day Take 1 tablet the day before the procedure and 1 tablet after the procedure Unchanged cefdinir (cefdinir 300 mg Cap) See instructions Unchanged Non-Formulary Medication (beta prostate) Unchanged tamsulosin (Flomax 0.4 mg Cap) 1 Capsules By Mouth Every day Allergies No Known Allergies Problems Ongoing - Any problem that you are currently receiving treatment for. 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 colon ca resection hydrocele Normal [facility] Fish and Urine Cyt o ([facility])on 11-02-2022 [facility] Method of Extraction Voided Normal [facility] Comment on above: Performed By: #### 1 [id number] ####[facility] [id number] [place] [address] [facility] Number of Jars 1 Invalid Interpretation Code [facility] Comment on above: Performed By: #### 1 [id number] ####[facility] [id number] [place] [address] [facility] Specimen Urine Normal [facility] Comment on above: Performed By: #### 1 [id number] ####[facility] [id number] [place] [address] [facility] Type of Service Global Normal [facility] Comment on above: Performed By: #### 1 [id number] ####[facility] [id number] [place] [address] Consent for Procedure/Surger yon 10-29-2022 Consent for Procedure/Surgery [id number] Normal [facility] Ambulatory Visit Summaryon 1 11-29-2021 Ambulatory Visit Summary KENNEDY KONG :1935 Visit Date:09/28/2022 Ambulatory Visit Instructions Your Diagnosis History of bladder cancer Tests Performed Urnls Dip Stick Auto w/o Microscopy POC [id number] Your Care Team Attending Physician - KARLO CHOI, Kylie Restrepo Primary Care Physician - NESTOR ESTRELLA DO This Is Your Medications List Non-Formulary Medication (beta prostate) cefdinir (cefdinir 300 mg Cap) ciprofloxacin (Cipro 500 mg Tab) tamsulosin (Flomax 0.4 mg Cap) Procedures Performed Endoscopic destruction of bladder tumor by laser (12/13/2020), TURBT - Transurethral resection of bladder tumor (05/26/2020), Hydrocelectomy (2001), Cataract, colon resection, colonoscopy. Medications What How Much When Instructions Unchanged cefdinir (cefdinir 300 mg Cap) See instructions Unchanged ciprofloxacin (Cipro 500 mg Tab) 1 Tablets By Mouth Every day Take 1 tablet the day before the procedure and 1 tablet after the procedure Unchanged Non-Formulary Medication (beta prostate) Unchanged tamsulosin (Flomax 0.4 mg Cap) 1 Capsules By Mouth Every day Test Results Urnls Dip Stick Auto w/o Microscopy POC 98028 (09/28/2022) Bilirubin Urine Dipstick - Negative Blood Urine Dipstick - Negative Glucose Urine Dipstick - Negative Ketones Urine Dipstick - Negative Leukocytes Urine Dipstick - Negative Nitrite Urine Dipstick - Negative Protein Urine Dipstick - Negative Specific Bowers Urine Dipstick - 1.025 Urine Appearance Urine Dipstick - Clear Urine Color Urine Dipstick - Yellow Urobilinogen Urine Dipstick - Normal 0.2-1 EU/dl pH Urine Dipstick - 7 Allergies No Known Allergies Problems Ongoing - Any problem that you are currently receiving treatment for. 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 colon ca resection hydrocele Normal [facility] GLYCOHEMOGLOBIN A1Con 2021 ADA RECOMMENDATION SEE BELOW Normal [facility] Comment on above: Result Comment: ADA RECOMMENDED LIMIT 4.0 - 6.0 ADA THERAPEUTIC TARGET < 7.0 ACTION SUGGESTED > 7.0 Performed By: #### A 1C #### [facility] [address] [address] [address] Cipriano Patton Glucose [Mass/Vol] 111 mg/dL Normal [facility] Comment on above: Performed By: #### A 1C #### [facility] [address] [place], [place] [address] Dr. Cipraino Patton HbA1c (Bld) [Mass fraction] 5.5 % Normal 4.5-6.2 [facility] Comment on above: Performed By: #### A 1C #### [facility] [address] [address] [address] Cipriano Patton PROF CHEM 8 (BAS METB)on Anion gap [Moles/Vol] 9.4 mmol/L Normal [facility] Comment on above: Performed By: #### B MP ####[facility] [address] [address]DrWesley Patton Calcium [Mass/Vol] 9.2 mg/dL Normal 8.5-10.1 [facility] Comment on above: Performed By: #### B MP ####[facility] [address] [address]DrWesley Patton Chloride [Moles/Vol] 103 mmol/L Normal 98-107 [facility] Comment on above: Performed By: #### B MP ####[facility] [address] [address]Dr. Cipriano Patton CO2 [Moles/Vol] 30.6 mmol/L Normal 21.0-32.0 [facility] Comment on above: Performed By: #### B MP ####[facility] [address] [address]DrWesley Patton Creatinine [Mass/Vol] 1.06 mg/dL Normal 0.70-1.30 [facility] Comment on above: Performed By: #### B MP ####[facility] [address] [address]DrWesley Patton EGFR-AF BANGLADESHI >60 Normal >=60 [facility] Comment on above: Performed By: #### B MP ####[facility] [address] [address]DrWesley Patton EGFR-NON AF BANGLADESHI >60 Normal >=60 [facility] Comment on above: Performed By: #### B MP ####[facility] [address] [id number]. Cipriano Patton Glucose [Mass/Vol] 96 mg/dL Normal 74-106 [facility] Comment on above: Performed By: #### B MP ####[facility] [address] [id number]. Carolejennifer Abdi Potassium [Moles/Vol] 5.0 mmol/L Normal 3.5-5.1 [facility] Comment on above: Performed By: #### B MP ####[facility] [address] [id number]. Carolejennifer Abdi Sodium [Moles/Vol] 138 mmol/L Normal 136-145 [facility] Comment on above: Performed By: #### B MP ####[facility] [address] [address]Dr. Cipriano Abdi Urea nitrogen [Mass/Vol] 29.0 mg/dL Critically high 7.0-18 .0 [facility] Comment on above: Performed By: #### B MP ####[facility] [address] [id number]. Cipriano Abdi Urea nitrogen/Creatinine [Mass ratio] 27.4 mg/mg Normal [facility] Comment on above: Performed By: #### B MP ####[facility] [address] [address]Dr. Cipriano Abdi Ambulatory Visit Summaryon 1 11-19-2021 Ambulatory Visit Summary KENNEDY KONG :1935 Visit Date:09/19/2022 Ambulatory Visit Instructions Your Diagnosis Bladder cancer Tests Performed Urnls Dip Stick Auto w/o Microscopy POC 39973 Your Care Team Attending Physician - Rufus CHOI, Marina Solis Primary Care Physician - NESTOR ESTRELLA DO This Is Your Medications List Non-Formulary Medication (beta prostate) cefdinir (cefdinir 300 mg Cap) ciprofloxacin (Cipro 500 mg Tab) tamsulosin (Flomax 0.4 mg Cap) Procedures Performed Endoscopic destruction of bladder tumor by laser (12/13/2020), TURBT - Transurethral resection of bladder tumor (05/26/2020), Hydrocelectomy (2001), Cataract, colon resection, colonoscopy. Medications What How Much When Instructions Unchanged cefdinir (cefdinir 300 mg Cap) See instructions Unchanged ciprofloxacin (Cipro 500 mg Tab) 1 Tablets By Mouth Every day Take 1 tablet the day before the procedure and 1 tablet after the procedure Unchanged Non-Formulary Medication (beta prostate) Unchanged tamsulosin (Flomax 0.4 mg Cap) 1 Capsules By Mouth Every day Test Results Urnls Dip Stick Auto w/o Microscopy POC 69749 (09/19/2022) Bilirubin Urine Dipstick - Negative Blood Urine Dipstick - Trace-intact Glucose Urine Dipstick - Negative Ketones Urine Dipstick - Trace - 5 mg/dl Leukocytes Urine Dipstick - Negative Nitrite Urine Dipstick - Negative Protein Urine Dipstick - Negative Specific Bowers Urine Dipstick - 1.025 Urine Appearance Urine Dipstick - Clear Urine Color Urine Dipstick - Yellow Urobilinogen Urine Dipstick - Normal 0.2-1 EU/dl pH Urine Dipstick - 7 Allergies No Known Allergies Problems Ongoing - Any problem that you are currently receiving treatment for. 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 colon ca resection hydrocele [facility] Consent for Procedure/Surger yon 08-17-2022 Consent for Procedure/Surgery [id number]#1.00CD:127 [facility] Consent for Procedure/Surgery [id number]#1.00CD:127 [facility] Formson 08-17-2022 Forms [id number]#1.00CD :127 [facility] Forms [id number]#1.00CD :127 Normal [facility] Physician Orderon 08-17-2022 Physician Order [id number]#1.00CD:127 Normal [facility] Physician Order [id number]#1.00CD:127 Normal [facility] Ambulatory Visit Summaryon 1 Ambulatory Visit Summary KENNEDY KONG :1935 Visit Date:08/08/2022 Ambulatory Visit Instructions Your Diagnosis Bladder cancer Tests Performed Urnls Dip Stick Auto w/o Microscopy POC 51528 Your Care Team Attending Physician - BRANDO BARRAGAN PA-C Primary Care Physician - NESTOR ESTRELLA DO This Is Your Medications List Non-Formulary Medication (beta prostate) cefdinir (cefdinir 300 mg Cap) ciprofloxacin (Cipro 500 mg Tab) tamsulosin (Flomax 0.4 mg Cap) Procedures Performed Endoscopic destruction of bladder tumor by laser (12/13/2020), TURBT - Transurethral resection of bladder tumor (05/26/2020), Hydrocelectomy (2001), Cataract, colon resection, colonoscopy. Medications What How Much When Instructions Unchanged cefdinir (cefdinir 300 mg Cap) See instructions Unchanged ciprofloxacin (Cipro 500 mg Tab) 1 Tablets By Mouth Every day Take 1 tablet the day before the procedure and 1 tablet after the procedure Unchanged Non-Formulary Medication (beta prostate) Unchanged tamsulosin (Flomax 0.4 mg Cap) 1 Capsules By Mouth Every day Test Results Urnls Dip Stick Auto w/o Microscopy POC 48994 (08/08/2022) Bilirubin Urine Dipstick - Negative Blood Urine Dipstick - Negative Glucose Urine Dipstick - Negative Ketones Urine Dipstick - Negative Leukocytes Urine Dipstick - Negative Nitrite Urine Dipstick - Negative Protein Urine Dipstick - Negative Specific Bowers Urine Dipstick - 1.015 Urine Appearance Urine Dipstick - Clear Urine Color Urine Dipstick - Yellow Urobilinogen Urine Dipstick - Normal 0.2-1 EU/dl pH Urine Dipstick - 6.5 Allergies No Known Allergies Problems Ongoing - Any problem that you are currently receiving treatment for. 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 colon ca resection hydrocele Normal [facility] CBC AUTO DIFFon 07-02-2022 BASO # 0.0 103/ul Normal 0.0-0.1 [facility] Comment on above: Performed By: #### C BC #### [facility] [address] [place] [address] Dr. Cipriano Patton Basophils/100 WBC (Bld) 0.5 % Normal 0.2-2.0 [facility] Comment on above: Performed By: #### C BC #### [facility] [address] [address] [address] Cipriano Patton EO # 0.4 103/ul Normal 0.0-0.7 [facility] Comment on above: Performed By: #### C BC #### [facility] [address] [address] [address] Cipriano Patton Eosinophils/100 WBC (Bld) 6.9 % Normal 0.9-7.0 [facility] Comment on above: Performed By: #### C BC #### [facility] [address] [address] [address] Cipriano Patton Erythrocyte distribution wid th (RBC) [Ratio] 13.5 % Normal 11.0-15.0 [facility] Comment on above: Performed By: #### C BC #### [facility] [address] [place] [address] Dr. Cipriano Patton Hematocrit (Bld) [Volume fraction] 42.5 % Normal 4 2.0-54.0 [facility] Comment on above: Performed By: #### C BC #### [facility] [address] [place] [address] Dr. Cipriano Patton Hemoglobin (Bld) [Mass/Vol] 13.7 g/dL Critically low 14.0 -18.0 [facility] Comment on above: Performed By: #### C BC #### [facility] [address] [place] [address] Dr. Cipriano Patton IG # 0.02 10e3/ul Normal 0.00-0.03 [facility] Comment on above: Performed By: #### C BC #### [facility] [address] [place] [address] Dr. Cipriano Patton IG % 0.4 % Normal 0.0-0.5 [facility] Comment on above: Performed By: #### C BC #### [facility] [address] [place] [address] Dr. Cipriano Patton LYMPH # 1.3 103/ul Normal 1.2-3.8 [facility] Comment on above: Performed By: #### C BC #### [facility] [address] [place] [address] Dr. Cipriano Patton Lymphocytes/100 WBC (Bld) 23.7 % Normal 20.5-60.0 [facility] Comment on above: Performed By: #### C BC #### [facility] [address] [place] [address] Dr. Cipriano Patton MANUAL DIFF REQ NO Normal [facility] Comment on above: Performed By: #### C BC #### [facility] [address] [place] [address] Dr. Cipriano Patton MCH (RBC) [Entitic mass] 29.4 pg Normal 25.9-34.0 [facility] Comment on above: Performed By: #### C BC #### [facility] [address] [place] [address] Dr. Cipriano Patton MCHC (RBC) [Mass/Vol] 32.2 g/dL Normal 29.9-35.2 [facility] Comment on above: Performed By: #### C BC #### [facility] [address] [place] [address] Dr. Cipriano Patton MCV (RBC) [Entitic vol] 91.2 fL Normal 80.0-94.0 [facility] Comment on above: Performed By: #### C BC #### [facility] [address] [place] [address] Dr. Cipriano Patton MONO # 0.9 103/ul Critically high 0.3-0.8 [facility] Comment on above: Performed By: #### C BC #### [facility] [address] [place] [address] Dr. Cipriano Patton Monocytes/100 WBC (Bld) 15.8 % Critically high 1.7-12. 0 [facility] Comment on above: Performed By: #### C BC #### [facility] [address] [place] [address] Dr. Cipriano Patton NEUT # 2.9 103/ul Normal 1.4-6.5 [facility] Comment on above: Performed By: #### C BC #### [facility] [address] [place] [address] Dr. Cipriano Patton Neutrophils/100 WBC (Bld) 52.7 % Normal 43.0-75.0 [facility] Comment on above: Performed By: #### C BC #### [facility] [address] [place] [address] Dr. Cipriano Patton Platelet mean volume (Bld) [Entitic vol] 9.0 fL Critically low 9.5-13.5 [facility] Comment on above: Performed By: #### C BC #### [facility] [address] [place] [address] Dr. Cipriano Patton PLT 211 103/ul Normal 150-450 [facility] Comment on above: Performed By: #### C BC #### [facility] [address] [place] [address] Dr. Cipriano Patton RBC 4.66 106/ul Critically low 4.70-6.10 [facility] Comment on above: Performed By: #### C BC #### [facility] [address] [place] [address] Dr. Cipriano Patton WBC 5.5 103/ul Normal 4.0-11.0 [facility] Comment on above: Performed By: #### C BC #### [facility] [address] [place] [address] Dr. Cipriano Patton PROF CHEM 8 (BAS METB)on Anion gap [Moles/Vol] 10.7 mmol/L Normal [facility] Comment on above: Performed By: #### B MP #### [facility] [address] [place] [address] Dr. Cipriano Patton Calcium [Mass/Vol] 8.5 mg/dL Normal 8.5-10.1 [facility] Comment on above: Performed By: #### B MP #### [facility] [address] [place] [address] Dr. Cipriano Patton Chloride [Moles/Vol] 105 mmol/L Normal 98-107 [facility] Comment on above: Performed By: #### B MP #### [facility] [address] [place] [address] Dr. Cipriano Patton CO2 [Moles/Vol] 29.4 mmol/L Normal 21.0-32.0 [facility] Comment on above: Performed By: #### B MP #### [facility] [address] [place] [address] Dr. Cipriano Patton Creatinine [Mass/Vol] 0.90 mg/dL Normal 0.70-1.30 [facility] Comment on above: Performed By: #### B MP #### [facility] [address] [place] [address] Dr. Cipriano Patton EGFR-AF BANGLADESHI >60 Normal >=60 [facility] Comment on above: Performed By: #### B MP #### [facility] [address] [place] [address] Dr. Cipriano Patton EGFR-NON AF BANGLADESHI >60 Normal >=60 [facility] Comment on above: Performed By: #### B MP #### [facility] [address] [place] [address] Dr. Cipriano Patton Glucose [Mass/Vol] 82 mg/dL Normal 74-106 [facility] Comment on above: Performed By: #### B MP #### [facility] [address] [address] [address] Cipriano Patton Potassium [Moles/Vol] 4.1 mmol/L Normal 3.5-5.1 [facility] Comment on above: Performed By: #### B MP #### [facility] [address] [place] [address] Dr. Cipriano Patton Sodium [Moles/Vol] 141 mmol/L Normal 136-145 [facility] Comment on above: Performed By: #### B MP #### [facility] [address] [place] [address] Dr. Cipriano Patton Urea nitrogen [Mass/Vol] 16.0 mg/dL Normal 7.0-18.0 [facility] Comment on above: Performed By: #### B MP #### [facility] [address] [place] [address] Dr. Cipriano Patton Urea nitrogen/Creatinine [Mass ratio] 17.8 mg/mg Normal [facility] Comment on above: Performed By: #### B MP #### [facility] [address] [place] [address] Dr. Cipriano Patton Covid-19 PCR ([facility])on 03-21 SARS-CoV-2 (COVID-19) RNA CAIT+probe Ql (Unsp spec) Detected Critically abnormal NOT DETECTED [facility] Comment on above: Result Comment: This test is not yet approved or cleared by the [place] FDA. When there are no FDA-approved or cleared tests available, and other criteria are met, FDA can make tests available under an emergency access mechanism called an Emergency Use Authorization (EUA). The EUA for this test is supported by the [place] Inspector of Health and Human Service's (HHS's) declaration that circumstances exist to justify the emergency use of in vitro diagnostics for the detection and/or diagnosis of the virus that causes COVID-19. This EUA will remain in effect (meaning this test can be used) for the duration of the COVID-19 declaration justifying emergency of IVDs, unless it is terminated or revoked by FDA (after which the test may no longer be used). Performed By: #### C TB #### [facility] [address] [address] [address] Cipriano Patton VC COMP CONSULTATIONon 03-28 VC COMP CONSULTATION Patient: LG KONG Exam Date: 03/28/2022 : 1935 Gender:M Ordering : DR NESTOR ESTRELLA D.O. Admission #: [id number] Family : Order #: [id number] CLICK HERE TO VIEW EXAM RADIOLOGY REPORT PROCEDURE: [facility]IN C[facility] CONSULTATION VEIN CENTER - OFFICE VISIT INITIAL COMPARISON: None. PROGRESS NOTES: 86-year-old male who presents with lower extremity pain and swelling. The left is much worse than the right. The patient has had swelling for many years but this has significantly increased over the past 6 months. The patient has worn compression stockings were approximately 30 years. Patient gives me history of a large left hydrocele repaired by Dr. Mckeon approximately 20 years ago. This recurred approximately 1-1/2 years ago and was repaired a 2nd time by Dr. Dietrich. The patient has a history of colon cancer with left hemicolectomy. 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 The patient's swelling does not improve at night or with leg elevation. The swelling does improve with movement after approximately 2 hours. 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 The patient denies any signs and symptoms to suggest arterial ischemia. The patient provided no significant family history. The patient has never smoked. No alcohol or illicit drug use. Past surgical history significant for colon cancer with partial colectomy, repair of 2 left hydroceles. Transitional cell carcinoma, hypertension, BPH, degenerative changes, bradycardia. No history of deep venous thrombus or pulmonary embolus. See separate history and physical for medication list. No prior treatment for varicose or spider veins. The patient has worn compression stockings for approximately 30 years on his left leg. Nursing notes were reviewed. After history and physical exam I discussed at length the pathophysiology of venous hypertension as well as lymphedema and possible treatments, therapies and strategies available. We discussed at length the importance of elevating the lower extremities above the level of the heart, increased physical activity and compression stocking use. I do not feel that the patient's symptoms are related to his mild vein disease and did not recommend any vein treatments at this time. We did discuss proper use of compression stockings, elevation at night above the level of the heart and manual manipulation. Ultrasound venous reflux study performed the same day was discussed at length with the patient. The report demonstrates mild right great saphenous vein venous insufficiency. Mild bilateral incompetent varicose veins PHYSICAL EXAM: The right leg demonstrates a few scattered reticular and spider veins. No subcutaneous edema. No active ulceration or hemosiderin staining. The patient's right foot is cold suggesting an arterial etiology. The left leg demonstrates a few scattered reticular and spider veins. Moderate correlating edema below the knee involving the entire lower leg, ankle and foot. No active ulceration or hemosiderin staining. Both thighs, legs and feet were symmetrically warm to the touch. posterior tibial and dorsalis pedis pulses were not present bilaterally. IMPRESSION: 1. Mild right great saphenous vein venous insufficiency 2. Mild bilateral lower extremity varicose veins 3. Moderate to marked left below knee subcutaneous edema likely lymphedema related to pelvic surgery and radiation for colon cancer 4. 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 CEAP: C3, Ep, As, Pr PLAN: 1. No treatments of his veins at this time 2. 30-40 mm left knee high compression stocking 3. Elevated legs and increased physical activity for symptomatic relief Nurse notes, history and physical were reviewed and confirmed, see attached forms. The nurse was present throughout the physical exam and consultation Dictated by: Aubrey Vee MD on 03/28/2022 at 10:06 Approved by: Aubrey Vee MD on 03/28/2022 at 10:14 Normal [facility] l VC VENOUS REFLUX ROBERTO LMTon 0 03-28-2022 VC VENOUS REFLUX ROBERTO LMT Patient: KENNEDY KONG Exam Date: 03/28/2022 : 1935 Gender:M Ordering : DR NESTOR ESTRELLA DTiburcio Admission #: [id number] Family : Order #: [id number] CLICK HERE TO VIEW EXAM RADIOLOGY REPORT PROCEDURE: VEIN CENTER ULTRASOUND VENOUS REFLUX BILATERAL LIMTED COMPARISON: None. INDICATIONS: Localized edema R60.0 TECHNIQUE: Duplex imaging of the lower extremity to assess the deep and superficial venous system for the presence of deep or superficial venous incompetence and to document the location and severity of disease. The study includes evaluation of the great saphenous vein (GSV), anterior accessory saphenous vein (AASV) and small saphenous vein (SSV). Patient scanned in reverse Trendelenburg and standing. 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 Varicose vein prox/post calf 2.5mm without reflux. LEFT LOWER EXTREMITY: Saphenofemoral Junction Reflux: Yes 7.6 mm 0.7 sec GSV: Diam (mm) Reflux/Time (sec) Proximal Thigh 4.3 Yes 0.7 Mid Thigh 2.6 No Distal Thigh 3.2 No Prox Calf 3.0 No Mid Calf 2.4 No Saphenopopliteal Junction Relux: 6.2 mm No SSV: Proximal Calf 1.6 No Mid Calf 1.1 No AASV: Not present Thrombi: No acute or chronic thrombus Compressibility: Normal Flow: Normal [employer]: Mid/med 2.6mm, no reflux; dist/med 3.3mm, no reflux Tech Note: Patent varicose vein prox/med 2.3mm, without reflux. Varicose vein mid/ant 2.7mm, without reflux. Hypoechoic avascular structure lt pop fossa that measures 3.1 x 4.2 x 0.9 cm CONCLUSION: 1. [id number] right great saphenous vein venous insufficiency without associated dilatation 2. Small bilateral incompetent varicose veins 3. 4.2 cm left popliteal cyst Dictated by: Aubrey Vee MD on 03/28/2022 at 09:23 Approved by: Aubrey Vee MD on 03/28/2022 at 09:26 Normal [facility] US MILADIS DOP LEG LTon 02-08-20 22 US MILADIS DOP LEG LT EXAM: US MILADIS DOP LEG LT HISTORY: Left leg edema for 6 months on and off. COMPARISON: None. TECHNIQUE: Grayscale, color flow and duplex imaging is performed to the left lower extremity FINDINGS: The visualized left lower extremity venous systems exhibit normal flow, phasicity, augmentation, compressibility and waveforms. IMPRESSION: No visualized venous thrombus Electronically authenticated by: AUBREY CHEUNG Date: 2022-02-07 17:34 Normal [facility] ANES Lisa 11-04-2019 ANES POST HNO ID: [id number] Author: Luigi Snyder Service: Anesthesiology Author Type: Anesthesiologist Type: Anesthesia PostOp Filed: 11/04/2019 3:21 PM Note Text: POST ANESTHESIA EVALUATION NOTE SERVICE DATE: 11/04/2019 SERVICE TIME: 3:21 PM : 1935 Vitals: 11/04/19 1115 11/04/19 1508 11/04/19 1515 BP: 136/71 104/67 99/83 Pulse: 85 77 77 Resp: 18 16 Temp: 37.1 ?C (98.8 ?F) TempSrc: Temporal SpO2: 96% 99% 100% Validated Vital Signs: Yes No apparent anesthetic complications. The patient is appropriately hydrated with stable respiratory and cardiovascular status. Patient has safe and adequate airway control. The patient has appropriate pain relief and no significant post operative nausea or vomiting. The patient has achieved baseline mental status. Intra-Operative Events: No Significant Anesthesia Events Further assessment by Anesthesia Service: None Other Remarks: SIGNATURE: Luigi Snyder MD PATIENT NAME: Kennedy Kong DATE: November 04, 2019 TIME: 3:21 PM PAGER/CONTACT #: [phone] Normal [facility] ANES PREOPon 11-04-2019 ANES PREOP HNO ID: [id number] Author: Seymour Buenrostro Service: Anesthesiology Author Type: Anesthesiologist Type: Anesthesia PreOp Filed: 11/04/2019 2:13 PM Note Text: REGIONAL ANESTHESIOLOGY DAY OF SURGERY NOTE PATIENT NAME: Kennedy Kong : 1935 Procedure(s) (LRB): COLONOSCOPY, FLEXIBLE W/ TRANSENDOSCOPIC BALLOON DILATION (N/A) Surgeon(s): Avel Camacho Estimated body mass index is 24.39 kg/m? as calculated from the following: Height as of 10/07/19: 177.8 cm (5' 10 ). Weight as of 10/07/19: 77.1 kg (170 lb). ASA Class: 3 Adequate NPO status: Yes Allergies: ALLERGIES Allergen Reactions - Amoxicillin Other: See Comments Pt gets sores in mouth Airway Assessment: MP 2; Neck ROM: Full ROM without neurologic symptoms; Airway Evaluation: No significant abnormalities Dentition: Teeth intact Symptoms of Sleep Apnea: Denies Most recent lab results: Hemoglobin 15.2 01/23/2012 Hematocrit 45.4 01/23/2012 Potassium 4.4 01/23/2012 Platelet Count 203 01/23/2012 Creatinine 0.98 01/23/2012 EKG: unchanged from previous tracings Vitals: 11/04/19 1115 BP: 136/71 Pulse: 85 Resp: 18 SpO2: 96% Previous Anesthesia: No history of adverse event Family history of anesthetic problems: None Additional Physical Exam: Lungs: Lungs clear to auscultation. Good diaphragmatic excursion. Cardiac: Normal S1 and S2; no rubs, no murmurs and no gallops Additional pertinent findings: N/A Other Medical Problems/ Important Considerations: Denies chest pain and SOB with exertion. Chronic Beta Myra medication administered within 24 hours: N/A Anesthetic risks, benefits, alternatives, personnel and consent discussed: Yes Patient agrees to proceed: Yes Blood Products: Not anticipated for this procedure Anesthetic Plan: MAC with GA as back up; Standard ASA Monitors Pain Management Plan: ROOT Protocol EPIC Chart Review ACTIVE PROBLEM LIST Colonic Stricture (Hcc) PAST MEDICAL HISTORY Diagnosis Date - Basal cell cancer - Colon cancer (HCC) PAST SURGICAL HISTORY Procedure Laterality Date - COLECTOMY PART W/ANASTOMOSIS 1990 followed with chemotx and radiation - COLONSCOPY SCREENING HIGH RISK - EXCISION HYDROCELE UNILAT 2006 left - EXPLORATORY OF ABDOMEN 2010 Laparotomy, exp for obstruction with partial bowel resection - REMV LENS MATERIAL,PHACOFRAGMT 2010 Cataract Extraction bilateral FAMILY HISTORY Problem Relation Age of Onset - Diabetes Mother - Colon Cancer Father Social History: Social History Tobacco Use - Smoking status: Never Smoker - Smokeless tobacco: Never Used Substance Use Topics - Alcohol use: Not Currently Comment: very occasional beers 2/month - Drug use: No Comment: declines tx 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 No current facility-administered medications on file prior to encounter. Current Outpatient Medications on File Prior to Encounter Medication Sig - Fish Oil-DHA-EPA (FISH OIL) 1,200-144-216 mg ORAL Cap Take by mouth once daily. - cyanocobalamin (VITAMIN B-12) 100 mcg ORAL Tab Take 200 mcg by mouth once daily. Inpatient medications reviewed in [facility]. I have interviewed and examined the patient. I have reviewed the medical record and/or the pre-anesthesia evaluation, pertinent labs, and test results. Significant changes in the patient's condition since the History and Physical, not otherwise documented in primary service progress notes: No This contains updated information obtained within 48 hours of Surgery/Procedure. SIGNATURE: Seymour Buenrostro MD PATIENT NAME: Kennedy Kong DATE: November 04, 2019 TIME: 2:13 PM PAGER/CONTACT #: [phone] [facility] HISTORY PHYSICALon 0 HISTORY PHYSICAL HNO ID: [id number] Author: Avel Camacho Service: Colorectal Author Type: Physician Type: HANDP Filed: 11/04/2019 1:08 PM Note Text: PROCEDURAL SEDATION HISTORY AND PHYSICAL EXAM SERVICE DATE: 11/04/2019 SERVICE TIME: 1:08 PM Subjective HPI: This is a 84 year old male who presents with colorectal stricture. History of colorectal cancer. PAST ANESTHESIA HISTORY: No history of adverse event PAST MEDICAL HISTORY Diagnosis Date - Basal cell cancer - Colon cancer (HCC) PAST SURGICAL HISTORY Procedure Laterality Date - COLECTOMY PART W/ANASTOMOSIS 1990 followed with chemotx and radiation - COLONSCOPY SCREENING HIGH RISK - EXCISION HYDROCELE UNILAT 2006 left - EXPLORATORY OF ABDOMEN 2010 Laparotomy, exp for obstruction with partial bowel resection - REMV LENS MATERIAL,PHACOFRAGMT 2010 Cataract Extraction bilateral Prior to Admission medications as of 11/04/19 1110 Medication Sig Last Dose Taking Fish Oil-DHA-EPA (FISH OIL) 1,200-144-216 mg ORAL Cap Take by mouth once daily. 11/03/2019 at Unknown time Yes cyanocobalamin (VITAMIN B-12) 100 mcg ORAL Tab Take 200 mcg by mouth once daily. 11/03/2019 at Unknown time Yes ALLERGIES Allergen Reactions - Amoxicillin Other: See Comments Pt gets sores in mouth Objective PHYSICAL EXAM: The remainder of the physical exam is noncontributory. AIRWAY: Airway Visualization of Uvula: Yes Mouth opening greater than 2 fingerbreadths: Yes Neck Full Range of Motion: Yes LUNGS: Lungs clear to auscultation, Good diaphragmatic excursion CARDIAC: Normal S1 and S2; no rubs, murmurs, or gallops Assessment/Plan ASA Class: ASA Class:: Patient with mild systemic disease Active Problems: * No active hospital problems. * Resolved Problems: * No resolved hospital problems. * Provisional Diagnosis/Treatment Plan: Colonoscopy with possible balloon dilation SEDATION GOAL: Moderate SIGNATURE: Avel Camacho MD PATIENT NAME: Kennedy Kong DATE: November 04, 2019 TIME: 1:08 PM PAGER: [facility] PT EDon 11-04-2019 PT ED HNO ID: [id number] Author: Elizabeth Patel RN Service: Nursing Author Type: Registered Nurse Type: Patient Education Filed: 11/04/2019 4:10 PM Note Text: PATIENT EDUCATION TOPIC: PROCEDURE / SURGERY: Post Procedure Teaching: Med Administration and Symptom Management PATIENT NAME: Kennedy Kong PATIENT LOCATION: [facility] ENDO POOL/[facility] ENDO POOL READINESS TO LEARN COGNITIVE ABILITY: Alert and oriented MOTIVATION TO LEARN: Eager FAMILY SUPPORT: High - Very involved in pt care INSTRUCTION PROVIDED TO: Patient, Family member and Significant Other PATIENT LEARNS BEST BY: Individual Instruction Written Instruction - Hand-outs Verbal Instruction FACTORS AFFECTING LEARNING: None PHYSICAL LIMITATIONS AFFECTING LEARNING: None LEARNING RESPONSE DIAGNOSIS: ADULT: Post colonoscopy PATIENT/FAMILY RESPONSE: Verbalizes understanding of: POST-PROCEDURE INSTRUCTIONS-Correct actions to take to reduce post procedure complications METHOD OF INSTRUCTION: Individual instruction Written instruction - handouts Verbal instruction FOLLOW-UP PLAN: Patient instructed to call with any further issues INSTRUCTIONAL AIDS USED: NA SUPPLEMENTAL MATERIAL PROVIDED TO PATIENT: None REFERRAL (RECOMMENDATION): None Electronically Signed By: Elizabeth Patel RN [facility] PT ED HNO ID: [id number] Author: Harini Yusuf RN Service: ? Author Type: Registered Nurse Type: Patient Education Filed: 11/04/2019 11:15 AM Note Text: PATIENT EDUCATION TOPIC: PROCEDURE / SURGERY: Procedure/Surgery: Colonoscopy PATIENT NAME: Kennedy Kong PATIENT LOCATION: [facility] ENDO POOL/[facility] ENDO POOL READINESS TO LEARN COGNITIVE ABILITY: Alert and oriented MOTIVATION TO LEARN: Interested FAMILY SUPPORT: High - Very involved in pt care INSTRUCTION PROVIDED TO: Patient and family member PATIENT LEARNS BEST BY: Individual Instruction FACTORS AFFECTING LEARNING: None PHYSICAL LIMITATIONS AFFECTING LEARNING: None LEARNING RESPONSE DIAGNOSIS: ADULT: Colonic stricture PATIENT/FAMILY RESPONSE: Information received as demonstrated by interest and questions METHOD OF INSTRUCTION: Individual instruction FOLLOW-UP PLAN: Complete - No need for follow-up INSTRUCTIONAL AIDS USED: NA SUPPLEMENTAL MATERIAL PROVIDED TO PATIENT: None REFERRAL (RECOMMENDATION): None Electronically Signed By: Harini Yusuf RN [facility] NURSING PROGon 10-08-2019 NURSING PROG HNO ID: [id number] Author: Nathaly (Rn) JUSTIN Kraft Service: Nursing Author Type: Registered Nurse Type: Nursing Progress Note Filed: 10/08/2019 8:46 AM Note Text: PACC Nurse Progress Note History AND Physical: PACC Visit Date: 10-07-19 Original HANDP Date: N/A ED visit Date: N/A Outside HANDP Scanned Date: N/A Labs Within Last 6 Months: N/A Imaging Within Last 12 Months: N/A Cardiac Testing: N/A BMI Percentile (PEDS): N/A Risk Assessment: N/A Anesthesia Review: N/A Narrative: N/A Pre-op Considerations: N/A Chart Check: COMPLETED Nathaly Kraft RN October 08, 2019 8:45 AM [facility] HOSPon 09-24-2019 HOSP Patient:Dustin Kong MRN: Height:5' 10 (1.778 m) Weight:170 lb (77.111 kg) Outpatient Medications as of 11/04/19: Fish Oil-DHA-EPA (FISH OIL) 1,200-144-216 mg ORAL Cap cyanocobalamin (VITAMIN B-12) 100 mcg ORAL Tab Admission/Clinic Administered Medications as of 11/04/19: NaCl 0.9% 2-10 mL Problem List: Colonic stricture (HCC) [K56.699] Allergies: Amoxicillin Date Verified: 11/04/19 Lab Values No results within the last 30 days for the following basenames: K,HCT No progress notes entered within the past 30 days Normal [facility] ABDOMEN 1 VWon 03-31-2019 ABDOMEN 1 VW [facility] Department of Radiology [address] [place] [id number] Patient Name: KENNEDY KONG : 1935 Sex: M Age: Race: White Pt. Location: 230 Patient Status: Ordered Date: 03/31/2019 5:00:00 AM Completed Date: 03/31/2019 11:46 AM Requesting Provider: GABRIEL PEREZ Attending Provider: GABRIEL PEREZ Report Copy To: Signs & Symptoms: R10.9 Unspecified abdominal pain I10 History: [place] THIS IS FOR A COLONOSCOPY FOR STRICTURE Comments: , THIS IS FOR A COLONOSCOPY FOR STRICTURE , Appointment Date: 03/31/2019 , Appointment Time: 8:30AM , THIS IS FOR A COLONOSCOPY FOR STRICTURE , Appointment Date: 03/31/2019 , Appointment Time: 8:30AM , , , Ordering Provider - MARILEE JIMÉNEZ , Exam: ABDOMEN 1 ABDOMEN 1 VW 03/31/2019 11:46 AM EDT SIGNS AND SYMPTOMS: R10.9 Unspecified abdominal pain I10 TECHNOLOGIST COMMENTS: Colonoscopy in Endoscopy with Dr. Perez. 1 minute and 13 seconds of fluoroscopy. Endo room 4 Gold c-arm. QUESTION FOR THE RADIOLOGIST: , THIS IS FOR A COLONOSCOPY FOR STRICTURE , Appointment Date: 03/31/2019 , Appointment Time: 8:30AM , THIS IS FOR A COLONOSCOPY FOR STRICTURE , Appointment Date: 03/31/2019 , ...More In Sending System PROTOCOL: Fluoroscopic guidance COMPARISON: None FINDINGS: 7 images were obtained. Fluoroscopy as noted above. IMPRESSION: For documentation Electronically signed by:Kaleb Perry. Transcribed by: [email or web address], User Resident: Electronically Signed by: KALEB PERRY @ 03/31/2019 12:59 PM [facility] Comment on above: Order Comment: , ROMELIA S IS FOR A COLONOSCOPY FOR STRICTURE , Appointment Date: 03/31/2019 , Appointment Time: 8:30AM , THIS IS FOR A COLONOSCOPY FOR STRICTURE , Appointment Date: 03/31/2019 , Appointment Time: 8:30AM , , , Ordering Provider - MARILEE JIMÉNEZ , Vital Signs Date Time Vital Sign Value Performing Clinician Facility 10-07-2023 14:30-0500 Body height 180.34 cm Imad Asaad Other [facility] Other 10-07-2023 14:30-0500 Body mass index (BMI) [Ratio] 25.24 kg/m2 Imad Asaad Other [facility] Other 10-07-2023 14:30-0500 Body weight 82.1 kg Imad Asaad Other [facility] Other 10-07-2023 14:30-0500 Diastolic blood pressure 63 mm[Hg] Imad Asaad Other [facility] Other 10-07-2023 14:30-0500 Systolic blood pressure 139 mm[Hg] Imad Asaad Other [facility] Other 10-04-2023 08:45-0500 Body height 180.34 cm Nestor Ball Other [facility] Other 10-04-2023 08:45-0500 Body mass index (BMI) [Ratio] 25.35 kg/m2 Nestor Ball Other [facility] Other 10-04-2023 08:45-0500 Body weight 82.46 kg Nestor Ball Other [facility] Other 10-04-2023 08:45-0500 Diastolic blood pressure 65 mm[Hg] Nestor Ball Other [facility] Other 10-04-2023 08:45-0500 Respiratory rate 12 /min Nestor Ball Other [facility] Other 10-04-2023 08:45-0500 Systolic blood pressure 133 mm[Hg] Nestor Ball Other [facility] Other 09-04-2023 08:45-0500 Body height 180.34 cm Nestor Ball Other [facility] Other 09-04-2023 08:45-0500 Body mass index (BMI) [Ratio] 26.11 kg/m2 Nestor Ball Other [facility] Other 09-04-2023 08:45-0500 Body weight 84.91 kg Nestor Ball Other [facility] Other 09-04-2023 08:45-0500 Diastolic blood pressure 71 mm[Hg] Nestor Ball Other [facility] Other 09-04-2023 08:45-0500 Respiratory rate 12 /min Nestor Ball Other [facility] Other 09-04-2023 08:45-0500 Systolic blood pressure 116 mm[Hg] Nestor Ball Other [facility] Other 08-21-2023 09:30-0400 Body height 180.34 cm Nestor Ball Other [facility] Other 08-21-2023 09:30-0400 Body mass index (BMI) [Ratio] 25.46 kg/m2 Nestor Ball Other [facility] Other 08-21-2023 09:30-0400 Body weight 82.83 kg Nestor Ball Other [facility] Other 08-21-2023 09:30-0400 Diastolic blood pressure 61 mm[Hg] Nestor Ball Other [facility] Other 08-21-2023 09:30-0400 Respiratory rate 12 /min Nestor Ball Other [facility] Other 08-21-2023 09:30-0400 Systolic blood pressure 115 mm[Hg] Nestor Ball Other [facility] Other 08-02-2023 09:45-0400 Body height 180.34 cm Nestor Ball Other [facility] Other 08-02-2023 09:45-0400 Body mass index (BMI) [Ratio] 25.86 kg/m2 Nestor Ball Other [facility] Other 08-02-2023 09:45-0400 Body weight 84.1 kg Nestor Ball Other [facility] Other 08-02-2023 09:45-0400 Diastolic blood pressure 64 mm[Hg] Nestor Ball Other [facility] Other 08-02-2023 09:45-0400 Respiratory rate 12 /min Nestor Ball Other [facility] Other 08-02-2023 09:45-0400 SaO2% (BldA) [Mass fraction] 96 % Nestor Ball Other [facility] Other 08-02-2023 09:45-0400 Systolic blood pressure 119 mm[Hg] Nestor Ball Other [facility] Other 07-08-2023 08:30-0400 Body height 180.34 cm Nestor Ball Other [facility] Other 07-08-2023 08:30-0400 Body mass index (BMI) [Ratio] 26.02 kg/m2 Nestor Ball Other [facility] Other 07-08-2023 08:30-0400 Body weight 84.64 kg Nestor Ball Other [facility] Other 07-08-2023 08:30-0400 Diastolic blood pressure 78 mm[Hg] Nestor Ball Other [facility] Other 07-08-2023 08:30-0400 Respiratory rate 12 /min Nestor Ball Other [facility] Other 07-08-2023 08:30-0400 Systolic blood pressure 135 mm[Hg] Nestor Ball Other [facility] Other 06-07-2023 14:15-0400 Body height 180.34 cm Nestor Ball Other [facility] Other 06-07-2023 14:15-0400 Body mass index (BMI) [Ratio] 26.72 kg/m2 Nestor Ball Other [facility] Other 06-07-2023 14:15-0400 Body weight 86.91 kg Nestor Ball Other [facility] Other 06-07-2023 14:15-0400 Diastolic blood pressure 71 mm[Hg] Nestor Ball Other [facility] Other 06-07-2023 14:15-0400 Respiratory rate 12 /min Nestor Ball Other [facility] Other 06-07-2023 14:15-0400 Systolic blood pressure 121 mm[Hg] Nestor Ball Other [facility] Other 05-02-2023 11:57-0400 Body height 177.8 cm Nestor E Ball Work Phone: [facility] [employer] DO Work Phone: 05-02-2023 11:57-0400 Body mass index (BMI) [Ratio] 26.54 kg/m2 Nestor E Ball Work Phone: [facility] [employer] DO Work Phone: 05-02-2023 11:57-0400 Body surface area Derived from formula 2.02 m2 Nestor E Ball Work Phone: [facility] [employer] DO Work Phone: 05-02-2023 11:57-0400 Body weight 83.92 kg Nestor E Ball Work Phone: [facility] [employer] DO Work Phone: 05-02-2023 11:57-0400 Diastolic blood pressure 60 mm[Hg] Nestor E Ball Work Phone: [facility] [employer] DO Work Phone: 05-02-2023 11:57-0400 Heart rate 60 /min Nestor E Ball Work Phone: [facility] [employer] DO Work Phone: 05-02-2023 11:57-0400 Systolic blood pressure 112 mm[Hg] Nestor E Ball Work Phone: [facility] [employer] DO Work Phone: 04-23-2023 08:53-0400 Body temperature 97.8 [degF] DO Nestor Ball Work Phone: [facility] 04-23-2023 08:53-0400 Diastolic blood pressure 53 mm[Hg] DO Nestor Ball Work Phone: [facility] 04-23-2023 08:53-0400 Heart rate 70 /min DO Nestor Ball Work Phone: [facility] 04-23-2023 08:53-0400 Respiratory rate 16 /min DO Nestor Ball Work Phone: [facility] 04-23-2023 08:53-0400 SaO2% (BldA) [Mass fraction] 97 % DO Nestor Ball Work Phone: [facility] 04-23-2023 08:53-0400 Systolic blood pressure 91 mm[Hg] DO Nestor Ball Work Phone: [facility] 04-23-2023 04:43-0400 Body weight 83.1 kg DO Nestor Ball Work Phone: [facility] 04-22-2023 10:44-0400 Body height 177.8 cm DO Nestor Ball Work Phone: [facility] 04-12-2023 13:15-0400 Body height 180.34 cm Nestor Ball Other [facility] [employer] Other 04-12-2023 13:15-0400 Body mass index (BMI) [Ratio] 26.41 kg/m2 Nestor Ball Other [facility] [employer] Other 04-12-2023 13:15-0400 Body weight 85.91 kg Nestor Ball Other [facility] Other 04-12-2023 13:15-0400 Diastolic blood pressure 72 mm[Hg] Nestor Ball Other [facility] Other 04-12-2023 13:15-0400 Respiratory rate 12 /min Nestor Ball Other [facility] Other 04-12-2023 13:15-0400 Systolic blood pressure 121 mm[Hg] Nestor Ball Other [facility] Other 02-06-2023 12:30-0400 Body height 180.34 cm Nestor Ball Other [facility] Other 02-06-2023 12:30-0400 Body mass index (BMI) [Ratio] 26.39 kg/m2 Nestor Ball Other [facility] Other 02-06-2023 12:30-0400 Body weight 85.82 kg Nestor Ball Other [facility] Other 02-06-2023 12:30-0400 Diastolic blood pressure 80 mm[Hg] Nestor Ball Other [facility] Other 02-06-2023 12:30-0400 Respiratory rate 12 /min Nestor Ball Other [facility] Other 02-06-2023 12:30-0400 Systolic blood pressure 132 mm[Hg] Nestor Ball Other [employer] Other 01-14-2023 15:51-0400 Body height 177.8 cm Avel Camacho MD Work Phone: [facility] 01-14-2023 15:51-0400 Body temperature 97.5 [degF] Avel Camacho MD Work Phone: [facility] 01-14-2023 15:51-0400 Body weight 83.46 kg Avel Camacho MD Work Phone: [facility] 01-14-2023 15:51-0400 Diastolic blood pressure 79 mm[Hg] Avel Camacho MD Work Phone: [facility] 01-14-2023 15:51-0400 Heart rate 65 /min Avel Camacho MD Work Phone: [facility] 01-14-2023 15:51-0400 SaO2% (BldA) [Mass fraction] 97 % Avel Camacho MD Work Phone: [facility] 01-14-2023 15:51-0400 Systolic blood pressure 165 mm[Hg] Avel Camacho MD Work Phone: [facility] 12-31-2022 11:30-0400 Body height 180.34 cm Nestor Ball Other [facility] Other 12-31-2022 11:30-0400 Body mass index (BMI) [Ratio] 26.27 kg/m2 Nestor Ball Other [facility] Other 12-31-2022 11:30-0400 Body weight 85.46 kg Nestor Ball Other [facility] Other 12-31-2022 11:30-0400 Diastolic blood pressure 70 mm[Hg] Nestor Ball Other [facility] Other 12-31-2022 11:30-0400 Respiratory rate 12 /min Nestor Ball Other [facility] Other 12-31-2022 11:30-0400 Systolic blood pressure 137 mm[Hg] Nestor Ball Other [facility] Other Encounters Encounter Date Encounter Type Care Provider Facility Start: 10-07-2023 End: 10-07-2023 ambulatory Imad Asaad Other [facility] Other Start: 10-07-2023 Office outpatient ne w 45 minutes Imad Asaad [facility] Gastroenterology Start: 10-04-2023 End: 10-04-2023 ambulatory Nestor Ball Other [employer] Other Start: 10-04-2023 Office outpatient visit 15 minutes Nestro Ball [facility] Start: 09-04-2023 End: 09-04-2023 ambulatory Nestor Ball Other [employer] Other Start: 09-04-2023 Office outpatient visit 15 minutes Nestor Ball [facility] Start: 09-04-2023 Telephone encounter Nestor Ball [facility] Start: 08-21-2023 End: 08-21-2023 ambulatory Nestor Ball Other [employer] Other Start: 08-21-2023 Office outpatient visit 15 minutes Nestor Ball [facility] Start: 08-21-2023 Telephone encounter Nestor Ball FP [facility] Start: 08-09-2023 End: 08-09-2023 ambulatory Nestor Ball Other [employer] Other Start: 08-09-2023 Telephone encounter Nestor Ball FP [facility] Start: 08-06-2023 End: 08-06-2023 ambulatory Nestor Ball Other [employer] Other Start: 08-06-2023 Telephone encounter Nestor Ball FP [facility] Start: 08-02-2023 End: 08-02-2023 ambulatory Nestor Ball Other [employer] Other Start: 08-02-2023 Office outpatient visit 15 minutes Nestor Ball [facility] Start: 07-31-2023 End: 07-31-2023 ambulatory Nestor Ball Other [employer] Other Start: 07-31-2023 Telephone encounter Nestor Estrella FP G [facility] Start: 07-10-2023 End: 07-10-2023 ambulatory Nestor Estrella Other [employer] Other Start: 07-10-2023 Telephone encounter Nestor SINGH G [facility] Start: 07-08-2023 Chart Update Nestor soriano Work Phone: [facility] 250 DO Work Phone: Start: 07-08-2023 End: 07-08-2023 ambulatory Nestor Estrella Other [employer] Other Start: 07-08-2023 Patient encounter procedure Nestor Estrella [facility] Start: 07-08-2023 Telephone encounter Nestor Estrella G [facility] Start: 06-25-[address] Adriel Thapa [facility] Facility:[id number] Start: 06-17-2023 ambulatory Kylie DIETRICH Facili ty:[facility] Start: 06-12-2023 ambulatory Kylie DIETRICH Facili ty:[facility] Start: 06-07-2023 End: 06-07-2023 ambulatory Nestor Estrella Other [email or web address] Other Start: 06-07-2023 Office outpatient visit 15 minutes Nestor Estrella [facility] Start: 06-06-2023 ambulatory Kylie DIETRICH Facili ty:CD:[id number] Start: 05-16-2023 Rx Renewal Nestor soriano Work Phone: [facility] 250 DO Work Phone: Start: 05-14-2023 End: 05-15-2023 ambulatory Kylie DIETRICH Facility:[facility] Start: 05-13-2023 ambulatory Kylie DIETRICH Facili ty:CD:[id number] Start: 05-10-2023 End: 05-11-2023 ambulatory Kylie DIETRICH Facility:[facility] Start: 05-10-2023 End: 05-11-2023 ambulatory Kylie DIETRICH Facility:[facility] Start: 05-09-2023 End: 05-09-2023 ambulatory Nestor Sameer Other [email or web address] Other Start: 05-09-2023 Telephone encounter Nestor SINGH [facility] Start: 05-02-2023 Telephone encounter Nestor SINGH [facility] Start: 05-02-2023 Office outpatient visit 15 minutes Nestor [place] Sameer Work Phone: [facility] 250 DO Work Phone: Start: 05-02-2023 End: 05-02-[address] Nestor Estrella [facility] [employer] Other Start: 04-22-2023 Telephone encounter Nestor SINGH [facility] Start: 04-22-2023 End: 04-23-2023 Evaluation and management of inpatient Grace West Facility:[facility] Start: 04-22-2023 End: 04-23-2023 Evaluation and management of inpatient DO Nestor Estrella Work Phone: [facility] Work Phone: Start: 04-22-2023 End: 04-22-[address] Adriel Morgan [facility] [employer] Other Start: 04-12-2023 End: 04-12-2023 ambulatory Nestor Sameer Other [email or web address] Other Start: 04-12-2023 Office outpatient visit 15 minutes Nestor Estrella [facility] Start: 04-08-2023 End: 04-09-2023 ambulatory Kylie DIETRICH Facility:[facility] Start: 04-08-2023 End: 04-08-2023 Patient encounter procedure Kylie DIETRICH [facility] Start: 03-19-2023 End: 03-19-2023 ambulatory Nestor Sameer Other [email or web address] Other Start: 03-19-2023 Telephone encounter Nestor SINGH G [facility] Start: 03-11-2023 End: 03-12-2023 ambulatory Kylie DIETRICH Facility: [facility] Start: 02-06-2023 End: 02-06-2023 ambulatory Nestor Estrella Other [employer] Other Start: 02-06-2023 Office outpatient visit 15 minutes Nestor Estrella [facility] Start: 02-06-2023 Telephone encounter Nestor SINGH G [facility] Start: 01-31-2023 End: 01-31-2023 ambulatory Nestor Estrella Other [employer] Other Start: 01-31-2023 Telephone encounter Nestor SINGH G [facility] Start: 01-18-2023 End: 01-19-2023 ambulatory TASHA CHILDERS . Facility: Start: 01-14-2023 End: 01-14-2023 ambulatory AVEL CAMACHO Facility:[facility] Start: 01-14-2023 End: 01-14-2023 Patient encounter procedure Avel Camacho MD Work Phone: Colorectal Surgery Comment on above: Irregular bowel habi ts (Primary Dx) Start: 01-07-2023 Telephone encounter Nestor Sameer SINGH [facility] Start: 01-07-2023 End: 01-08-[address] KYLIE DIETRICH . [facility] [employer] Other Start: 12-31-2022 End: 12-31-2022 ambulatory Nestor Sameer Other [employer] Other Start: 12-31-2022 Office outpatient vi sit 25 minutes Nestor Estrella [facility] Start: 12-28-2022 ambulatory Kyile DIETRICH Facili ty:[facility] Start: 12-27-2022 Telephone encounter Nestor Sameer SINGH [facility] Start: 12-27-2022 End: 12-28-[address] NESTOR ESTRELLA [facility] [employer] Other Start: 12-25-2022 End: 12-25-2022 ambulatory Reid Ann Other [facility] [employer] Other Start: 12-25-2022 Telephone encounter Reid Seth [facility] Start: 12-20-[address] KYLIE DIETRICH . Fac ility:[facility]1 Start: 12-12-[address] KYLIE DIETRICH . Fac ility:[facility] Start: 11-12-2022 End: 11-13-[address] KYLIE DIETRICH . Facility:[facility] Start: 11-05-2022 ambulatory Kylie Jordan ty:CD:[id number] Start: 11-04-2022 Evaluation and management of inpatient BRANDON ESTRELLA Facility:[facility] Start: 11-03-2022 End: 11-05-2022 Evaluation and management of inpatient LUKE LAN Facility:[facility] Start: 11-03-2022 End: 11-03-[address] HANG OHARA Facility: Start: 11-02-2022 End: 11-03-2022 ambulatory Kylie DIETRICH Facility:[facility] Start: 11-02-2022 End: 11-02-2022 Patient encounter procedure Kylie DIETRICH [facility] Start: 10-04-2022 End: 10-04-[address] KYLIE DIETRICH . Facility: Start: 09-28-2022 End: 09-29-[address] NESTOR ESTRELLA Facility: Start: 09-28-2022 End: 09-28-2022 Patient encounter procedure Kylie DIETRICH [facility] Start: 09-20-2022 ambulatory Kylie Jordan ty:CD:[id number] Start: 09-19-2022 End: 09-20-2022 ambulatory Marina Hooper Facility:[facility] Start: 09-19-2022 End: 09-19-2022 Patient encounter procedure Marina Hooper [facility] Start: 08-23-2022 End: 08-23-[address] KYLIE DIETRICH . Facility: Start: 08-08-2022 End: 08-09-2022 ambulatory BRANDO Darvin LAUREL Facility:[facility] Start: 08-08-2022 End: 08-08-2022 Patient encounter procedure BRANDO BARRAGAN [facility] Start: 07-02-2022 End: 07-03-[address] NESTOR ESTRELLA Facility:[facility] Start: 06-11-2022 End: 06-11-[address] KYLIE DEITRICH . Facility:[facility] Start: 06-04-2022 End: 06-04-2022 Patient encounter procedure Kylie DIETRICH [facility] Start: 04-30-2022 End: 04-30-[address] KYLIE DIETRICH . Facility:[facility] Start: 04-25-2022 End: 04-25-2022 Patient encounter procedure Marina Irma Hooper [facility] Start: 04-09-2022 End: 04-09-[address] NESTOR ESTRELLA Facility:[facility] Start: 04-06-2022 End: 04-06-[address] NESTOR ESTRELLA Facility:[facility] Start: 04-02-2022 End: 04-02-[address] KYLIE DIETRICH . Facility:[facility] Start: 03-30-2022 End: 03-30-2022 Patient encounter procedure Kylie DIETRICH [facility] Start: 03-28-2022 End: 03-29-[address] NESTOR ESTRELLA Facility:[facility] Start: 03-05-2022 End: 03-05-[address] KYLIE DIETRICH . Facility:[facility] Start: 03-02-2022 End: 03-02-2022 Patient encounter procedure Kylie R DIETRICH [facility] Start: 02-07-2022 End: 02-08-[address] NESTOR ESTRELLA Facility:[facility] Start: 01-08-2022 End: 01-08-2022 Patient encounter procedure Kylie R DIETRICH [facility] Start: 05-09-2017 Ambulatory ADRIEL RIOS [facility] Ambulatory Start: 05-06-2017 End: 05-10-2017 Amb[place] [facility] Ambulato ry Procedures Date Procedure Procedure Detail Performing Clinician Start: 06-25-2023 Echocardiography Damon Estrella Work Phone: Start: 04-22-2023 CL LHC & COR Angio DO B enalida Estrella Work Phone: Start: 04-22-2023 CL Stent 1st Vessel CX CASSIDY DO Nestor Estrella Work Phone: Start: 12-13-2020 Cystoscopy and laser destruction of bladder lesion Kylie DIETRICH Start: 05-26-2020 Transurethral resect ion of bladder neoplasm Kylie DIETRICH Start: 10-21-2001 Hydrocelectomy Kylie DIETRICH Cardiac catheterization Piyush Estrella Work Phone: Cataract (disorder) Kylie DIETRICH Comment on above: left colon resection Kylie PHAM Colonoscopy Kylie DIETRICH Colonoscopy Nestor Estrella Work Phone: History of placement of stent for coronary artery disease Status post insertion of drug eluting coronary artery stent Nestor Estrella Work Phone: Insertion of arterial stent Nestor Estrella Work Phone: Operation on gallbladder Eleuterio Estrella Work Phone: Comment on above: tumor removal; Partial resection of colon B cesar Estrella Work Phone: Plan of Treatment Date Care Activity Detail Author Start: 11-20-2023 FUV, Provider: Adriel Morgan, Status: Pen, Time: 9:20 AM FUV, Provider: Adriel Morgan, Status: Pen, Time: 9:[address] [facility] 250 DO Work Phone: Start: 06-25-2023 ECHO, Provider: [facility]TRAS[facility] 01,[id number], Status: Pen, Time: 12:30 PM ECHO, Provider: [facility] 01,[id number], Status: Pen, Time: 12:[address] 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 [facility] Start: 04-22-2023 Referral to cardiac rehabilitation program [facility] Start: 04-22-2023 Hospital admission [facility] Start: 10-21-2022 ADVANCE DIRECTIVE DISCUSSION ADVANCE DIRECTIVE DISCUSSION [facility] Start: 10-21-2022 DEPRESSION ASSESSMENT DEPRESSION ASSESSMENT [facility] Start: 06-21-2022 Influenza vaccination INFLUENZA (#1) [facility] Start: 01-22-2015 DIABETES SCREEN DIABETES SCREEN [facility] Start: 2001 PNEUMOCOCCAL: 65+ (1 - PCV) PNEUMOCOCCAL: 65+ (1 - PCV) [facility] Start: 1986 SHINGRIX VACCINE (1 of 2) SHINGRIX VACCINE (1 of 2) [facility] Start: 1955 Urine microalbumin profile DTAP,TDAP,TD (1 - Tdap) [facility] Start: 1936 COVID-19 VACCINE (#1) COVID-19 VACCINE (#1) [facility] Patient Education Coronary Angio plasty (DC) Coronary Stenting (DC) Angina (DC) Chest Pain (DC) Drug Eluting Stents [facility] Work Phone: Patient referral [facility] Work Phone: Immunizations Immunization Date Immunization Notes Care Provider Kaitlynn morejon 07-08-2023 influenza, high dose seasonal, preservative-free Nestor Estrella Other [employer] Other 01-18-2023 tetanus toxoid, redu atiya diphtheria toxoid, and acellular pertussis vaccine, adsorbed Nestor Estrella Work Phone: [facility] [employer] 250 DO Work Phone: 08-30-2022 COVID-19 Pfizer (Pediatric) Nestor Sameer Other [employer] Other 08-30-2022 Pfizer COVID-19 Vac Bivalent 30 MCG/0.3ML Intramuscular Suspension Nestor Estrella Work Phone: [facility] [employer] 250 DO Work Phone: 07-02-2022 Fluad Quadrivalent 0 .5 ML Intramuscular Prefilled Syringe Nestor Estrella Work Phone: [facility] [employer] DO Work Phone: 07-02-2022 influenza virus vaccine, split virus (incl. purified surface antigen) Nestor Sameer Other [employer] Other 01-19-2022 Comirnaty 30 MCG/0.3 ML Intramuscular Suspension Nestor Estrella Work Phone: [facility] [employer] 250 DO Work Phone: 01-19-2022 COVID-19 Vaccine Pfi zer - Documentation Purposes Only Nestor Estrella Other [employer] Other 10-01-2021 zoster vaccine recombinant Nestor Estrella Work Phone: [facility] [employer] 250 DO Work Phone: 07-31-2021 diphtheria, tetanus toxoids and acellular pertussis vaccine, unspecified formulation Nestor Sameer Other [employer] Other 07-31-2021 influenza virus vaccine, split virus (incl. purified surface antigen) Nestor Estrella Other [facility] [employer] Other 07-27-2021 influenza, seasonal, injectable, preservative free Nestor Estrella Work Phone: [facility] 250 DO Work Phone: 06-09-2021 Pfizer-BioNTech COVID-19 Vacc 30 MCG/0.3ML Intramuscular Suspension Nestor Estrella Work Phone: [facility] 250 DO Work Phone: 04-14-2021 zoster vaccine recombinant Nestor Estrella Work Phone: [place] [address] DO Work Phone: 12-02-2020 Pfizer-BioNTech COVID-19 Vacc 30 MCG/0.3ML Intramuscular Suspension Nestor Estrella Work Phone: [facility] 250 DO Work Phone: 11-10-2020 Pfizer-BioNTech COVID-19 Vacc 30 MCG/0.3ML Intramuscular Suspension Nestor Estrella Work Phone: [facility] 250 DO Work Phone: 09-26-2020 bacillus calmette-blossom vaccine Kylie DIETRICH [facility] 09-12-2020 bacillus calmette-blossom vaccine Kylie DIETRICH [facility] 09-05-2020 bacillus calmette-blossom vaccine Kylie DIETRICH [facility] 08-29-2020 bacillus calmette-blossom vaccine Kylie DIETRICH [facility] 08-15-2020 bacillus calmette-blossom vaccine Kylie DIETRICH [facility] 08-08-2020 bacillus calmette-blossom vaccine Kylie DIETRICH [facility] 07-01-2020 influenza virus vaccine, split virus (incl. purified surface antigen) Nestor Estrella Other [employer] [facility] [employer] Other 08-03-2019 influenza, seasonal, injectable Nestor Estrella Work Phone: [place] [address] DO Work Phone: 07-15-2019 influenza virus vaccine, split virus (incl. purified surface antigen) Nestor Estrella Other [employer] Other 07-15-2018 influenza virus vaccine, split virus (incl. purified surface antigen) Nestor Estrella Other [employer] Other 07-15-2018 Seasonal trivalent influenza vaccine, adjuvanted, preservative free Nestor Estrella Work Phone: [place] [address] DO Work Phone: 10-24-2017 pneumococcal polysaccharide vaccine, 23 valent Nestor Estrella Work Phone: [place] [address] DO Work Phone: 06-27-2016 influenza virus vaccine, split virus (incl. purified surface antigen) Nestor Estrella Other [employer] Other 06-27-2016 pneumococcal conjuga te vaccine, 13 valent Nestor Estrella Other [employer] Other 10-29-2013 zoster vaccine, live Benjami n E Ball Work Phone: -[facility] 250 DO Work Phone: Payers Date Payer Category Payer Self-pay 2016 Private Health Insurance [employer] A ETNA MEDICARE SUPPLEMENT [id number] 2016-Present [phone] [address] [address] [place] [address] Indemnity [id number] 2003 Medicare MEDICARE MEDICAR E A AND B [id number] 2003-Present [phone] [address] [address] [place] [address] Medicare [id number] 2001 Medicare [id number] 1959 Medicare [id number] 1959 Private Health Insurance [facility] [id number] 1936 Unknown [id number] 2.16.840.1.045093.3.579. 2.594 1936 Unknown [id number] 2.16.840.1.560580.3.579. 2.594 1936 Unknown [id number] 2.16.840.1.941909.3.579. 2.593 1936 Unknown [id number] 2.16.840.1.882359.3.579. 2.593 1936 Unknown [id number] 2.16.840.1.772902.3.579. 2.593 1936 Unknown [id number] 2.16.840.1.795098.3.579. 2.593 1936 Unknown [id number] 2.16.840.1.034562.3.579. 2.593 1936 Unknown [id number] 2.16.840.1.290018.3.579. 2.593 1936 Unknown [id number] 2.16.840.1.590664.3.579. 2.593 1936 Unknown [id number] 2.16.840.1.257943.3.579. 2.593 1936 Unknown [id number] 2..840.1.335894.3.579. 2.593 1936 Unknown [id number] 2..840.1.306338.3.579. 2.593 1936 Unknown [id number] 2.840.1.544549.3.579. 2.593 1936 Unknown [id number] 2.840.1.640745.3.579. 2.593 1936 Unknown [id number] 2.840.1.746503.3.579. 2.593 1936 Unknown [id number] 2.840.1.185055.3.579. 2.593 1936 Unknown [id number] 2.840.1.530585.3.579. 2.593 1936 Unknown [id number] 2.840.1.467853.3.579. 2.593 1936 Unknown [id number] 2.840.1.643525.3.579. 2.593 1936 Unknown [id number] 2.840.1.895201.3.579. 2.593 1936 Unknown [id number] 2.840.1.040000.3.579. 2.593 1936 Unknown [id number] 2..840.1.583671.3.579. 2.1068 1936 Unknown [id number] 2.840.1.123792.3.579. 2.727 1936 Unknown [id number] 2.16.840.1.787591.3.579. 2.727 1936 Unknown [id number] 2.16.840.1.668377.3.579. 2.727 1936 Unknown [id number] 2.16.840.1.059679.3.579. 2.72 1936 Unknown [id number] 2.16.840.1.259732.3.579. 2.727 1936 Unknown [id number] 2.16.840.1.692011.3.579. 2.72 1936 Unknown [id number] 2.16.840.1.858454.3.579. 2.72 1936 Unknown [id number] 2.16.840.1.663175.3.579. 2.72 1936 Unknown [id number] 2.16.840.1.504066.3.579. 2.727 1936 Unknown [id number] 2..840.1.198335.3.579. 2.72 1936 Unknown [id number] 2.16.840.1.699230.3.579. 2.727 1936 Unknown [id number] 2.840.1.555346.3.579. 2.72 1936 Unknown [id number] 2.16.840.1.989680.3.579. 2.727 1936 Unknown [id number] 2.16.840.1.012591.3.579. 2.72 1936 Unknown [id number] 2.16.840.1.763640.3.579. 2.356 1936 Unknown [id number] 2.16.840.1.291575.3.579. 2.356 1936 Unknown [id number] 2.16.840.1.515737.3.579. 2.356 Unknown [id number] 2.16.840.1.519475.3.579. 2.531 Unknown Social History Date Type Detail Facility Start: 09-01-2021 End: 04-22-2023 Tobacco smoking status Never smoked tobacco (finding) [facility] Sex Assigned At Male [facility] Start: 01-23-2012 Tobacco use and exposure Smokeless tobacco non-user [facility] Work Phone: Start: 01-14-2023 Alcohol intake Current drinke r of alcohol (finding) [facility] Start: 01-14-2023 Alcohol Comment 1/5 of whiskey every 6 months [facility] Start: 1935 Sex Assigned At Not on file C [facility] Start: 1935 Sex Assigned At Male F [facility] No illicit drug use No illicit drug use [facility] DO Work Phone: Goals Date Patient Goal Desired Activity /State Functional Status Date Assessment Result Facility 04-23-2023 Functional status Patient at Baseline [facility] Work Phone: Mental Status Date Assessment Result Facility 04-23-2023 Cognitive function Cognitive Sta tus Patient at Baseline [facility] Work Phone: Clinical Notes 01-08-2022 to 10-07-2023 Note Date & Type Note Facility 10-07-2023 Evaluation note Encounter Date Diagnosis Assessment Notes Sep, History of bowel resection (ICD-10 - Z90.49) Sep, 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 [employer] Other 12-15-2023 Evaluation note* Encounter Date Diagnosis Assessment Notes Treatment Notes Treatment Clinical Notes Sep, Skin ulcer of sacrum with fat layer exposed (ICD-10 - L98.422) No significant improvement No change in size of ulcer No bleeding or drainage Instructed to keep clean and dry. Call if increase in pain. Sep, Change in bowel habits (ICD-10 - R19.4) Hx of IBD and bowel resection. 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 Refer to GI for scope and dilatation Sep, History of bowel resection (ICD-10 - Z90.49) Alternating constipation and diarrhea. No bleeding, abdominal pain or fever. High fiber, low residue diet. 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 Will require referral for colonoscopy and stretching. 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 He should sleep on his side. When sitting, should use padding or lean forwards Finish antibiotics, consider continuing low dose Doxycycline Aug, Diarrhea, unspecified type (ICD-10 - R19.7) Keep area clean and dry. Wipe away from ulcer. Duoderm may help keep protected Aug, History of bowel resection (ICD-10 - Z90.49) Increase issues w/ loose, frequent BM Increases difficulty keeping area clean. Duoderm may help protect area [employer] Other 11-01-2023 Evaluation note* Encounter Date Diagnosis Assessment Notes Treatment Notes Treatment Clinical Notes 01 Nov, 2023 Pressure injury of sacral region, stage 1 (ICD-10 - L89.151) [employer] Other 10-17-2023 Evaluation note* Encounter Date Diagnosis Assessment Notes Treatment Notes Treatment Clinical Notes Jul, Dysuria (ICD-10 - R30.0) [employer] Other 10-13-2023 Evaluation note* Encounter Date Diagnosis Assessment Notes Treatment Notes Treatment Clinical Notes Jul, Chronic venous insufficiency (ICD-10 - I87.2) Avoid salt and elevate lower extremities, support stockings, inspect legs and feet daily for blisters and ulcerations. Jul, Ulcer of right lower extremity, limited to breakdown of skin (ICD-10 - L97.911) Keep clean and dry Neosporin daily. Notify office w/ increased pain, erythema Jul, Skin ulcer of sacrum with fat layer exposed (ICD-10 - L98.422) Keep clean and dry No obvious s/s infection at this stage Difficult area to heal due to constant pressure when sitting May require referral to wound clinic Jul, Adverse reaction to statin medication (ICD-10 - T46.6X5A) CK normal Continue Statin qod (M/W/F) Jul, Myalgia (ICD-10 - M79.10) Tolerable, continue Tylenol, hot showers, avoid strenuous activity [employer] [employer] Other 09-18-2023 Evaluation note* Encounter Date Diagnosis Assessment Notes Treatment Notes Treatment Clinical Notes Jun, Medicare annual wellness visit, subsequent (ICD-10 - Z00.00) Personalized health advice was given to the beneficiary including a written plan for screenings discussed and provided. Advanced care planning reviewed and/or information given as requested. Additional counseling was provided here today in regards to, [ ]. The above visit was performed by [ ], under direct supervision of [ ]. Document reviewed and amended by provider signed below. Jun, Ischemic cardiomyopathy (ICD-10 - I25.5) Echo: LVEF improved to 60% post PCI/stent placement - 06/2023 This patient is stable without activity related CP, dyspnea or lightheadedness. They are instructed to continue exercise and AHA diet plan. Continue secondary prevention measures. Jun, Acute HFrEF (heart failure with reduced ejection fraction) (ICD-10 - I50.21) Instructed on low salt diet, exercise and daily weights. Instructed to notify office for any unexpected weight gain > 3lbs and/or increased dyspnea, difficulty breathing during sleep, worsening lower extremity swelling, chest pain or lightheadedness. Reviewed GDMT w/ beta blockers, KRISTINE/ARB/ARNI, MRA and SGLT-2 Jun, Primary hypertension (ICD-10 - I10) This patient is instructed to consume a healthy, low-fat, low-salt diet. They are also encouraged to continue exercise to achieve/maintain a normal BMI. Jun, Elevated cholesterol (ICD-10 - E78.00) Instructed on diet and exercise with continued statin therapy.Discussed the beneficial effects of lowering cholesterol in reducing the risk for cerebrovascular and cardiovascular disease. Experiencing muscle aching, which may be caused by statin Jun, Benign prostatic hyperplasia with lower urinary tract symptoms (ICD-10 - N40.1) Symptoms tolerable Continue FLomax Jun, Chronic venous insufficiency (ICD-10 - I87.2) Avoid salt and elevate lower extremities, support stockings, inspect legs and feet daily for blisters and ulcerations. 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 They are to use intermittent heat and ice as needed. They may schedule a massage or gentle manipulation. They may safely use Tylenol as needed. Jun, Pressure injury of sacral region, stage 1 (ICD-10 - L89.151) Jun, High risk medication use (ICD-10 - Z79.899) Jun, Hx of bladder cancer (ICD-10 - Z85.51) No s/s recurrence [employer] Other 08-18-2023 Evaluation note* Encounter Date Diagnosis Assessment Notes Treatment Notes Treatment Clinical Notes May, Spider bite wound, accidental or unintentional, initial encounter (ICD-10 - T63.301A) May, Generalized muscle ache (ICD-10 - M79.10) May, Adverse reaction to statin medication (ICD-10 - T46.6X5A) May, Elevated cholesterol (ICD-10 - E78.00) [facility] [employer] Other 07-25-2023 Note [id number]:127Pranay [facility] 05-14-2023 NoteCustom Cystoscopy ? Voiding after the procedure: there may be some pain, burning, urgency, frequency and blood tingedurine following the procedure. These symptoms usually resolve within 2-5 days. Drink the amount of fluid it takes to keep the urine pink to yellow or clear in color. Drinking enough water and fluids will help to ease any discomfort after your procedure. ? If you are having problems that seem out of the ordinary, please call. ? If unable to contact your physician and you feel it is an emergency, go to the nearest emergency room or call 911 ? Diet ? you may resume your normal diet. ? Activity ? you may resume your normal activities ? Call if you have a fever over 100 degrees.[facility] 05-02-2023 Evaluation note* Encounter Date Diagnosis Assessment Notes Treatment Notes Treatment Clinical Notes Apr, Tinea pedis of both feet (ICD-10 - B35.3) [facility] Other 07-04-2023 Progress note Author Hang Pedersen [facility] April 23, 2023 9:24am Note Date/Time April 23, 2023 9:20a m [facility] [address] [place] [address] Cardiology Progress Note Signed Patient: Kennedy Kong MR#: [id number] : 1935 Acct:[id number] Age/Sex: 87 / M Adm Date: 3 Loc: Room: [address] [place] [address] Type: ADM IN Attending Dr: Kiki Motta MD Copies to: ~ Date of Service: 04/23/2023 Subjective Principal diagnosis: High risk non-STEMI status post successful PCI to left circumflex/OM Interval history: Mr. Kong is doing well this morning. No residual chest pain or other anginal symptoms. No problems with right radial access site. Tolerating dual antiplatelet therapy well without untoward bleeding complications. No new complaints presently. Exam Physical Exam Vital Signs: Temp Pulse Resp BP Pulse Ox O2 Del Method 97.8 F 70 16 91/53 L 97 Room Air 04/23/23 08:53 04/23/23 08:53 04/23/23 08:53 04/23/23 08:53 04/23/23 08:53 04/23/23 08:53 Objective Labs 04/23/23 03:41 04/23/23 03:41 Labs: Laboratory Results - last 24 hr 04/22/23 04/22/23 04/22/23 14:25 17:07 20:04 Corrected WBC Uncorrected WBC Count RBC Hgb Hct MCV MCH MCHC RDW Plt Count MPV Neut % (Auto) Lymph % (Auto) [place] % (Auto) Eos % (Auto) Baso % (Auto) Nucleat RBC Rel Count Neut # (Auto) Lymph # (Auto) [place] # (Auto) Eos # (Auto) Baso # (Auto) PHA Creatinine Clear Sodium Potassium Chloride Carbon Dioxide Anion Gap BUN Creatinine Est GFR (CKD-EPI) Glucose Calcium Troponin I High Sens 03575.8 H* 95358.7 H* 12307.2 H* Triglycerides Cholesterol LDL Cholesterol, Calc VLDL Cholesterol HDL Cholesterol Cholesterol/HDL Ratio 04/22/23 04/23/23 04/23/23 23:35 03:41 03:41 Corrected WBC 8.1 Uncorrected WBC Count 8.1 RBC 4.52 Hgb 13.4 Hct 40.6 MCV 89.8 MCH 29.7 MCHC 33.1 RDW 13.6 Plt Count 215 MPV 6.8 Neut % (Auto) 73.2 Lymph % (Auto) 10.5 [place] % (Auto) 14.1 Eos % (Auto) 1.5 Baso % (Auto) 0.7 Nucleat RBC Rel Count 0.1 Neut # (Auto) 5.9 Lymph # (Auto) 0.9 L [place] # (Auto) 1.1 H Eos # (Auto) 0.1 Baso # (Auto) 0.1 PHA Creatinine Clear 55.30 Sodium 137 Potassium 4.5 Chloride 106 Carbon Dioxide 25.0 Anion Gap 10.5 BUN 24 Creatinine 0.99 Est GFR (CKD-EPI) > 60.0 Glucose 110 H Calcium 8.7 Troponin I High Sens 14508.0 H* Triglycerides 97 Cholesterol 148 LDL Cholesterol, Calc 73 VLDL Cholesterol 19 HDL Cholesterol 56 Cholesterol/HDL Ratio 2.6 04/23/23 03:41 Corrected WBC Uncorrected WBC Count RBC Hgb Hct MCV MCH MCHC RDW Plt Count MPV Neut % (Auto) Lymph % (Auto) [place] % (Auto) Eos % (Auto) Baso % (Auto) Nucleat RBC Rel Count Neut # (Auto) Lymph # (Auto) [place] # (Auto) Eos # (Auto) Baso # (Auto) PHA Creatinine Clear Sodium Potassium Chloride Carbon Dioxide Anion Gap BUN Creatinine Est GFR (CKD-EPI) Glucose Calcium Troponin I High Sens 74120.2 H* Triglycerides Cholesterol LDL Cholesterol, Calc VLDL Cholesterol HDL Cholesterol Cholesterol/HDL Ratio A&P - Cardiology (1) NSTEMI (non-ST elevated myocardial infarction): Assessment/Problem Details: Doing well on postprocedure day #1 status post PCI to left circumflex/OM. CCS 0. NYHA functional class Ib. Clinically euvolemic and well compensated. Patient is stable and ready for discharge to home today. Code(s): I21.4 - Non-ST elevation (NSTEMI) myocardial infarction Status: Acute Plan: Recommendations: 1. Discharge to home today 2. No lifting greater than equal to 10 pounds for 5 days with the right arm 3. Dual antiplatelet therapy: Aspirin 81 mg daily/ticagrelor 90 mg twice daily 4. Maintain current dosing of losartan/carvedilol/statin. 5. Please make sure patient has follow-up in [facility] heart clinic within 10 days. Pending a favorable clinical evolution enrollment in phase 2 monitored cardiac rehabilitation is strongly recommended. (2) Colon cancer: Code(s): C18.9 - Malignant neoplasm of colon, unspecified Status: Acute (3) Essential hypertension: Code(s): I10 - Essential (primary) hypertension Status: Acute Time spent with patient Time Spent With Patient (min): 30 Documented By: Hang Pedersen MD 04/23/23919 Signed By: <Electronically signed by Hang Pedersen MD> 04/23/23923 [facility] Work Phone: 1(192) 978-544707-03-2023 Consult note Author W Eddie [facility] April 22, 2023 12:46pm Note Date/Time April 22, 2023 12:42 pm [facility] [address] [place] [address] Cardiology Consult Note Signed Patient: Kennedy Kong MR#: [id number] : 1935 Acct:[id number] Age/Sex: 87 / M Adm Date: 3 Loc: 4 Room: [address] [place] [address] Type: ADM IN Attending Dr: Kiki Motta MD Copies to: MD Nestor Todd,DO Ko Morgan, [facility] Cardiology HPI History of Present Illness Consult Date: 04/22/23 Reason for Consult: Non-ST elevation OK/ACS HPI: Mr. Kong is a 87 year old male seen in interventional cardiology consultation at request of hospitalist and gentleman who was transferred from [facility] emergency room after being awakened with chest discomfort at 3 AM this morning. The discomfort radiated to his shoulder, back, left side; finally drove himself to the emergency room, he received 1 sublingual nitroglycerin with relief. Initial high-sensitivity troponin was elevated at 648; initial ECGs revealed sinus rhythm with J-point elevation in the inferolateral leads, however somewhat similar to previous remote ECG at [facility] had on record Patient was excepted to the hospitalist service this morning. He did not receive any upstream heparin or antiplatelet therapies, [facility] ECG and labs are reviewed there are no labs or ECG on admission here Patient is presently stable without chest discomfort. He does admit to abnormalbowel activity due to previous history of colon cancer in 5 separate surgeries. He does admit to history of hypertension treated with losartan, denies diabetes and tobacco use There is no prior history of myocardial infarction, revascularization, stroke, thromboembolic or bleeding disorder He remains an active wolff Risks, benefits, alternatives and informed decision-making process performed with the patient for 30 minutes this morning in regards to further evaluation for ACS. He agrees to proceed with early invasive management by means of catheterization possible intervention as directed by anatomy and physiology. Review of Systems Review of Systems All other systems reviewed & are negative unless noted below or in HPI Constitutional Constitutional: Reports as per HPI Eyes Eyes: Reports system reviewed and no additional complaints, except as documented ENT Ears, Nose, Mouth, and Throat: Reports system reviewed and no additional complaints, except as documented Cardiovascular Cardiovascular: Reports as per HPI and Reports chest pain at rest Respiratory Respiratory: Reports system reviewed and no additional complaints, except as documented Gastrointestinal Gastrointestinal: Reports as per HPI, Reports constipation and Reports diarrhea Genitourinary Genitourinary: Reports system reviewed and no additional complaints, except as documented Musculoskeletal Musculoskeletal: Reports system reviewed and no additional complaints, except asdocumented Integumentary/Breasts Skin/Breast: Reports system reviewed and no additional complaints, except as documented Neurologic Neurologic: Reports system reviewed and no additional complaints, except as documented PMFSH Vaccinated for COVID-19?: Yes Medical History (Updated 04/22/23 @ 12:46 by Ko Morgan DO) Adhesion of intestine Colon cancer Hx of hydrocele Surgical History (Updated 08/19/21 @ 18:22 by Telma Huddleston RN) Hx of colectomy Family History Father Colon cancer Social History Smoking Status: Never smoker Substance Use Type: None Meds Medications and Allergies Allergies No Known Allergies Allergy (Verified 08/19/21 18:20) Home Medications losartan 25 mg tablet 25 mg PO HS 04/22/23 [History Confirmed 04/22/23] tamsulosin 0.4 mg capsule 0.4 mg PO QPM 04/22/23 [History Confirmed 04/22/23] terbinafine HCl 250 mg tablet 250 mg PO HS 04/22/23 [History Confirmed 04/22/23] Exam Physical Exam Vital Signs: Temp Pulse Resp BP Pulse Ox O2 Del Method 97 F L 74 18 159/91 H 100 Room Air 04/22/23 11:45 04/22/23 11:45 04/22/23 11:45 04/22/23 11:45 04/22/23 11:45 04/22/23 11:45 Const General: cooperative, healthy appearing, comfortable, no acute distress and welldeveloped Nutritional Appearance: average body habitus Orientation: alert, awake and oriented x3 HEENT Head: normal to inspection Eyes General: appearance normal, both eyes and all related structures Neck Neck: normal visual inspection Chest Chest palpation & inspection: normal inspection of the chest Resp Effort & Inspection: normal respiratory effort Auscultation: clear to auscultation bilaterally Cardio Palpation: normal PMI Rate: regular rate Rhythm: regular rhythm Heart Sounds: S1 normal and S2 normal Pulses: radial pulses present and femoral pulses present GI Inspection: normal to inspection Skin General: no rashes or lesions noted Neuro General: patient alert, patient awake and patient oriented x3 Cognition: normal cognition Speech: speech normal Extrem General: no clubbing, cyanosis or edema Results Labs Lab results: Intake and Output 04/21/23 04/22/23 04/22/23 23:59 07:59 15:59 Other: Weight 82.6 kg Date of Last Bowel Movement 04/21/23 Patient Weight 04/22/23 23:59 Weight 82.6 kg EKG Interpretations EKG EKG results cardiology: sinus rhythm Blocks, axis, hypertrophy, ST abn Repolarization changes or abnormalities: nonspecific abnormality, ST segment, and/or T wave and early repolarization (normal variant) A&P - Cardiology (1) NSTEMI (non-ST elevated myocardial infarction): Code(s): I21.4 - Non-ST elevation (NSTEMI) myocardial infarction (2) Colon cancer: Code(s): C18.9 - Malignant neoplasm of colon, unspecified (3) Essential hypertension: Code(s): I10 - Essential (primary) hypertension Documented By: Ko Morgan DO 04/22/23 1239 Signed By: <Electronically signed by Ko Morgan DO> 04/22/23 1246 [facility] Work Phone: 1(445) 831-660807-03-2023 [facility] History and physical note Author Kiki Motta [facility] April 22, 2023 11:53am Note Date/Time April 22, 2023 11:10 am [facility] [address] [place] [address] Hospitalist H&P Signed Patient: Kennedy Kong MR#: [id number] : 1935 Acct:[id number] Age/Sex: 87 / M Adm Date: 3 Loc: Room: [address] [place] [address] Type: ADM IN Attending Dr: Kiki Motta MD Copies to: MD Nestor Todd DO~ HPI DATE OF EXAMINATION: 04/22/23 CHIEF COMPLAINT: Chest pain HISTORY OF PRESENT ILLNESS: 87-year-old white female past medical history of hypertension who presented to emergency room with chest pain. Patient woke up at 3 AM and went to the bathroom when he started to have a left-sided chest pain. It is a pressure painin nature. It is 7/10 intensity. The pain radiated to his left arm. The pain lasted for couple hours. The pain got better by nitro. No aggravating factors. He denies having nausea vomiting. No diaphoresis. Denies having shortness of breath. No orthopnea PND. He denies any cough. No fever or chills. He denieshaving abdominal pain. No constipation or diarrhea. He denies having dysuria, hematuria, or frequency he never had a chest pain or heart attack before. Review of Systems Review of Systems All other systems reviewed & are negative unless noted below or in HPI REPLACED BY [facility] Attestation Statement: The following information was validated with the patient. Medical History (Updated 04/22/23 @ 11:52 by Kiki Motta MD) Adhesion of intestine Colon cancer Hx of hydrocele Surgical History (Updated 08/19/21 @ 18:22 by Telma Huddleston RN) Hx of colectomy Family History Father Colon cancer Social History Smoking Status: Never smoker Substance Use Type: None Meds Medications and Allergies Allergies No Known Allergies Allergy (Verified 08/19/21 18:20) Home Medications losartan 25 mg tablet 25 mg PO HS 04/22/23 [History Confirmed 04/22/23] tamsulosin 0.4 mg capsule 0.4 mg PO QPM 04/22/23 [History Confirmed 04/22/23] terbinafine HCl 250 mg tablet 250 mg PO HS 04/22/23 [History Confirmed 04/22/23] Exam Physical Exam Vital Signs: Pulse Resp BP Pulse Ox O2 Del Method 64 18 168/90 H 98 Room Air 04/22/23 10:44 04/22/23 10:44 04/22/23 10:44 04/22/23 10:44 04/22/23 10:44 Const General: comfortable, no acute distress and well developed Nutritional Appearance: well nourished HEENT Head: normal to inspection and normocephalic Mouth: oral mucosae normal and moist mucous membranes Eyes General: appearance normal, both eyes and all related structures Conjunctivae: conjunctivae normal Sclera: sclerae normal Pupils: PERRL Neck Neck: no lymphadenopathy and supple Chest Chest palpation & inspection: normal inspection of the chest Resp Effort & Inspection: normal respiratory effort Auscultation: clear to auscultation bilaterally Cardio Jugular venous pressure: no JVD Rate: regular rate Rhythm: regular rhythm Heart Sounds: S1 normal, S2 normal and normal, physiologic split S2 Pulses: popliteal pulses present and posterior tibial pulses present GI Palpation: soft and no hepatosplenomegaly Auscultation: normal bowel sounds Skin General: no rashes or lesions noted Lesions: no lesions Rashes: no rashes Neuro General: patient alert, patient awake, patient oriented x3 and no focal motor deficits Cranial Nerves: CN's II-XII intact bilaterally and EOM intact bilaterally Psych Appearance: grossly normal Speech and Movement: speech and movement normal Attitude: cooperative Thought Process: normal Thought Content: normal Insight: insight good Assessment & Plan Assessment/Plan (1) NSTEMI (non-ST elevated myocardial infarction): Plan 87-year-old white female past medical history of hypertension who presented to emergency room with chest pain. Patient woke up at 3 AM and went to the bathroom when he started to have a left-sided chest pain Impression Non-STEMI Inpatient admission Patient will require more than 2 nights in the hospital Cardiac telemetry Serial EKG Troponin x3 Echocardiogram Aspirin daily Lipitor 80 mg daily Lopressor 25 twice daily Plan for cardiac cath today Discussed with cardiology Hypertension: Resume losartan 25 daily History of colon cancer s/p multiple surgeries DVT prophylaxis: Lovenox 4 mg daily IP vs OBS Justification Based on differential dx, clinical care plan, and risk of adverse events, if untreated, in my clinical judgement this patient requires an acute care setting as: INPATIENT because of an expectation of an over 2 midnight stay. Estimated length of stay (# of days): 2 Documented By: Kiki Motta MD 04/22/23 1108 Signed By: <Electronically signed by Kiki Motta MD> 04/22/23 1153 [facility] Work Phone: 1(315) 604-624306-23-2023 Evaluation note* Encounter Date Diagnosis Assessment Notes Treatment Notes Treatment Clinical Notes Mar, Tinea pedis of both feet (ICD-10 - B35.3) Keep dry, cleanse socks daily and open to air at home. Use cream bid and take Lamisil qd x 14 days [employer] Other 04-19-2023 Evaluation note* Encounter Date Diagnosis Assessment Notes Treatment Notes Treatment Clinical Notes Jan, Carbuncle and furuncle of buttock (ICD-10 - L02.33) Warm compresses or warm soak. 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 Patient states he has continued to have irregular bowel function varying between loose stools and firm. No abdominal pain at this time. He remains active. He did have an event in early October where he may have had a bowel obstruction that was managed at OSH. He did not have any intervention and it resolved on it's own. He is here to discuss options. At his last visit we discussed repeating a flex sig for some varying concerns. He did have a full colonoscopy with me in 2019 and the colon was normal with a widely patent colorectal anastomosis. There was a side to end ayers type anastomosis. PSH: Colonoscopy 11/04/2019 Findings: -The perianal and digital rectal examinations were normal. - Normal intact and patent colorectal anastomosis Last office visit 09/2021- scheduled for repeat colonoscopy and dilation due to symptoms, appointment cancelled PSH: previous colectomy for colon cancer ? date PHYSICAL EXAM BP 165/79 Pulse 65 Temp 97.5 Ht 5' 10 (1.78m) Wt 184 lb (83.5kg) SpO2 97% BMI 26.40 kg/(m2). General Appearance: Well appearing, alert, in no acute distress Abdomen: Abdomen soft, non-tender. No masses, organomegaly Assessment Irregular bowel habits Recent ?sbo Plan RECOMMENDATION - we discussed fiber supplementation. Also some reassurance that his irregular bowel habits is not unexpected with his surgical history. It is not clear to me what event he has in early Oct. From the report there was a possible sbo or colonic stricture. However following that he continued to have bowel function - We discussed that we could repeat his colonoscopy to fully assess vs. Continues to monitor his symptoms. He would like to wait at this time and will call if symptoms become more problematic. - follow up as needed. Avel Camacho, [facility]03-27-2023 Nurse Note* Micaela Henderson MA - 01/14/2023 3:50 PM EDT What is the reason for your visit today? Established patient presents for reoccuring bowel obstruction. Who is your referring physician? Are you having poor oral intake? NO Have you had unintentional weight loss of 15 lbs/7 Kg in the last 3-6 months? 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 Patient states he has continued to have irregular bowel function varying between loose stools and firm. No abdominal pain at this time. He remains active. He did have an event in early October where he may have had a bowel obstruction that was managed at OSH. He did not have any intervention and itresolved on it's own. He is here to discuss options. At his last visit we discussed repeating a flex sig for some varying concerns. He did have a full colonoscopy with me in 2019 and the colon was normal with a widely patent colorectal anastomosis. There was a side to end ayers type anastomosis. PSH: Colonoscopy 11/04/2019 Findings: -The perianal and digital rectal examinations were normal. - Normal intact and patent colorectal anastomosis Last office visit 09/2021- scheduled for repeat colonoscopy and dilation due to symptoms, appointment cancelled PSH: previous colectomy for colon cancer ? date PHYSICAL EXAM BP 165/79 Pulse 65 Temp 97.5 Ht 5' 10 (1.78m) Wt 184 lb (83.5kg) SpO2 97% BMI 26.40 kg/(m^2). General Appearance: Well appearing, alert, in no acute distress Abdomen: Abdomen soft, non-tender. No masses, organomegaly Assessment Irregular bowel habits Recent ?sbo Plan RECOMMENDATION - we discussed fiber supplementation. Also some reassurance that his irregular bowel habits is not unexpected with his surgical history. It is not clear to me what event he has in early [place]. [place] there was a possible sbo or colonic stricture. However following that he continued to have bowel function - We discussed that we could repeat his colonoscopy to fully assess vs. Continues to monitor his symptoms. He would like to wait at this time and will call if symptoms become more problematic. - follow up as needed. Avel Camacho MD documented in this encounterUniversity Hospitals [facility]03-13-2023 Evaluation note* Encounter Date Diagnosis Assessment Notes Treatment Notes Treatment Clinical Notes Dec, Essential hypertension (ICD-10 - I10) This patient is instructed to consume a healthy, low-fat, low-salt diet. They are also encouraged to continue exercise to achieve/maintain a normal BMI. Dec, Chronic venous insufficiency (ICD-10 - I87.2) Avoid salt and elevate lower extremities, support stockings, inspect legs and feet daily for blisters and ulcerations. 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 They are to use intermittent heat and ice as needed. They may schedule a massage or gentle manipulation. They may safely use Tylenol as needed. Dec, Benign prostatic hyperplasia with lower urinary tract symptoms (ICD-10 - N40.1) Symptoms tolerable. Continue Tamsulosin as prescribed. Aware that may cause lightheadedness. Dec, Anemia, unspecified type (ICD-10 - D64.9) Anemia of chronic inflammation. 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) Continue surveillance scopes Denies hematuria f/u Dec, History of ulcerative colitis (ICD-10 - Z87.19) No s/s active disease Dec, History of bowel resection (ICD-10 - Z90.49) Diet adjustements to control constipation and diarrhea [facility] Other 03-09-2023 Evaluation note* Encounter Date Diagnosis Assessment Notes Treatment Notes Treatment Clinical Notes Dec, Anemia, unspecified type (ICD-10 - D64.9) [facility] Other 03-07-2023 Evaluation note* Encounter Date Diagnosis Assessment Notes Treatment Notes Treatment Clinical Notes Dec, Anemia, unspecified type (ICD-10 - D64.9) [facility] Other 01-13-2023 Evaluation + Plan note Diagnostic Tests Pending * [facility] 11/02/22 [facility] 08-15-2022 Evaluation + Plan note Diagnostic Tests Pending * [facility]) 06/04/22 [facility] 05-13-2022 Evaluation + Plan note Diagnostic Tests Pending * [facility] ([facility]) 03/02/22 [facility] 03-21-2022 Evaluation + Plan note Diagnostic Tests Pending * [facility] ([facility]) 01/08/22 [facility] discharge summary Author Kiki Motta [facility] April 23, 2023 11:20am Note Date/Time April 23, 2023 11:20 am [facility] [address] [place] [address] Discharge Summary Signed Patient: Kennedy Kong MR#: [id number] : 1935 Acct:[id number] Age/Sex: 87 / M Adm Date: 3 Loc: Room: [address] [place] [address]: Kiki Motta MD Copies to: MD Nestor Todd,DO~ Providers Date of Discharge: 04/23/23 Discharging Provider: Kiki Motta Primary Care Provider: Nestor Estrella Consults: 04/22/23 13:56 Consult to Cardiac Rehabilitation Routine 04/22/23 15:06 Consult to Cardiology Routine 04/22/23 15:50 Consult to Cardiology Routine Discharge Diagnosis (1) NSTEMI (non-ST elevated myocardial infarction): (2) Colon cancer: (3) Essential hypertension: Final Diagnosis Final Discharge Diagnosis: Non-STEMI Summary Hospital Course Hospital course: 87-year-old white female past medical history of hypertension who presented to emergency room with chest pain.? Patient woke up at 3 AM and went to the bathroom when he started to have a left-sided chest pain.? It is a pressure painin nature.? It is 7/10 intensity.? The pain radiated to his left arm.? The pain lasted for couple hours.? The pain got better by nitro.? No aggravating factors.? He denies having nausea vomiting.? No diaphoresis.? Denies having shortness of breath.? No orthopnea PND.? He denies any cough.? No fever or chills.? He denies having abdominal pain.? No constipation or diarrhea.? He denies having dysuria, hematuria, or frequency he never had a chest pain or heart attack before. Patient admitted to the hospital for observation with cardiac telemetry. Treated with aspirin and statin. Cardiology was consulted. Patient underwent angioplasty and stent Of OM1 branch of the circumflex. Patient discharged home in stable condition Time Spent with Patient Time spent providing/coordinating discharge services (# min): 28 Surgeries and Procedures Operation Date: 04/22/23 11:20 Actual Procedures p CL LHC & COR Angio - W Ignacio Morgan DO p CL Stent 1st Vessel CX CASSIDY - W Ignacio Morgan DO Diagnostic Studies Completed and Pending Studies Pending studies at discharge: 04/23/23 05:00 [facility] echo transthoracic IN AM 04/24/23 05:00 ECG 12 lead ECG IN AM Basic Metabolic Panel [CHEM] IN AM Complete Blood Count Auto Diff IN AM 04/25/23 05:00 ECG 12 lead ECG IN AM Basic Metabolic Panel [CHEM] IN AM Complete Blood Count Auto Diff IN AM 04/26/23 05:00 Basic Metabolic Panel [CHEM] IN AM Complete Blood Count Auto Diff IN AM 04/27/23 05:00 Basic Metabolic Panel [CHEM] IN AM Complete Blood Count Auto Diff IN AM Labs on day of discharge: 04/23/23 03:41: Troponin I High Sens 08378.2 H* 04/23/23 03:41: PHA Creatinine Clear 55.30, Sodium 137, Potassium 4.5, Chloride 106, Carbon Dioxide 25.0, Anion Gap 10.5, BUN 24, Creatinine 0.99, Est GFR (CKD-EPI) > 60.0, Glucose 110 H, Calcium 8.7, Triglycerides 97, Cholesterol 148, LDL Cholesterol, Calc 73, VLDL Cholesterol 19, HDL Cholesterol 56, Cholesterol/HDL Ratio 2.6 04/23/23 03:41: Corrected WBC 8.1, Uncorrected WBC Count 8.1, RBC 4.52, Hgb 13.4, Hct 40.6, MCV 89.8, MCH 29.7, MCHC 33.1, RDW 13.6, Plt Count 215, MPV 6.8, Neut % (Auto) 73.2, Lymph % (Auto) 10.5, [place] % (Auto) 14.1, Eos % (Auto) 1.5, Baso % (Auto) 0.7, Nucleat RBC Rel Count 0.1, Neut # (Auto) 5.9, Lymph # (Auto) 0.9 L, [place] # (Auto) 1.1 H, Eos # (Auto) 0.1, Baso # (Auto) 0.1 04/22/23 23:35: Troponin I High Sens 71906.0 H* 04/22/23 20:04: Troponin I High Sens 78020.2 H* 04/22/23 17:07: Troponin I High Sens 58590.7 H* 04/22/23 14:25: Troponin I High Sens 27645.8 H* Exam Physical Exam Vital Signs: Temp Pulse Resp BP Pulse Ox O2 Del Method 97.8 F 70 16 91/53 L 97 Room Air 04/23/23 08:53 04/23/23 08:53 04/23/23 08:53 04/23/23 08:53 04/23/23 08:53 04/23/23 08:53 Const General: comfortable, no acute distress and well developed Nutritional Appearance: well nourished HEENT Head: normal to inspection and normocephalic Mouth: oral mucosae normal and moist mucous membranes Eyes General: appearance normal, both eyes and all related structures Conjunctivae: conjunctivae normal Sclera: sclerae normal Pupils: PERRL Neck Neck: no lymphadenopathy and supple Chest Chest palpation & inspection: normal inspection of the chest Resp Effort & Inspection: normal respiratory effort Auscultation: clear to auscultation bilaterally Cardio Jugular venous pressure: no JVD Rate: regular rate Rhythm: regular rhythm Heart Sounds: S1 normal, S2 normal and normal, physiologic split S2 Pulses: popliteal pulses present and posterior tibial pulses present GI Palpation: soft and no hepatosplenomegaly Auscultation: normal bowel sounds Skin General: no rashes or lesions noted Lesions: no lesions Rashes: no rashes Neuro General: patient alert, patient awake, patient oriented x3 and no focal motor deficits Cranial Nerves: CN's II-XII intact bilaterally and EOM intact bilaterally Psych Appearance: grossly normal Speech and Movement: speech and movement normal Attitude: cooperative Thought Process: normal Thought Content: normal Insight: insight good Discharge Plan Discharge Plan Activity: No Activity Restriction Diet: Low-Fat and Low-Sodium Additional Instructions: DISCHARGE INSTRUCTIONS FOR ANGIOPLASTY/CORONARY/PERIPHERAL/STENT IMPLANT FOR ADULT ANTICOAGULATION -Since the greatest risk of a blood clot forming with the stent occurs in the first 2-3 weeks after implantation, you will need to take anticoagulants for at least 12-18 months. ANTICOAGULATION MEDICATION Aspirin 81mg once a day, Ticagrelor (Brilinta) 90mg twice a day STATIN MEDICATION Atorvastatin (Lipitor) 80 mg Drug-Eluting Stent (CASSIDY) DO NOT discontinue Brilinta/Aspirin during the first few months regardless of what you are advised by your family doctor or pharmacist, without first calling the military professional who implanted the stent. If you require pain relief during this time, please take only ACETAMINOPHEN (TYLENOL)- NO additional aspirin or ibuprofen. DISCHARGE ACTIVITIES ARE FOLLOWS: First week after discharge: -Take it easy at home, no strenuous activity. -Do not lift or pull objects over 10-15 pounds, including children, and groceries for four weeks. If puncture site is at wrist do NOT lift more than three pounds for three days. - May walk up stairs. -May shower. -No excessive scrubbing of the affected site (groin). -May ride in car. -May resume sexual intercourse after 1-2 weeks. -No MRI for 12 days. -May drive in 4-7 days. -If puncture site is at the wrist do not manipulate the wrist for 24 hours, and no soaking wrist for three days. Second Week: -May take a bath -May start walking 3 times a week for 15-20 minutes at a leisurely pace. You should be able to carry on a conversation comfortably without feeling winded. -No strenuous activity as in jogging, running, weight lifting, stair steppers, etc. until the military professional approves these activities. Check with the military professional on your first follow-up visit. CALL YOUR PHYSICIAN at [phone]: -If bleeding should occur from the catheter insertion site- apply pressure to the site then immediately call us. -Report any fever, redness, drainage, increased swelling, or firmness at the catheter insertion site. Some bruising or slight swelling may be present at the time of discharge. -Should arm or leg become cold, numb, white, or blue, contact the military professional immediately. -IF you should experience episodes of angina, e.g. chest discomfort, heaviness, tightness, pressure burning with or without radiation to the neck, jaw, arms or back- use 1 Nitrostat tablet under your tongue every 5-10 minutes and up to three tablets. IF NO RELIEF, CALL 911 or GO TO THE NEAREST EMERGENCY ROOM. -Please notify our office if you have recurrent angina. -[Cardiac Rehab Education Provided. Participation in the Cardiopulmonary Rehabilitation program is recommended. Please call Central Scheduling at [phone] to schedule your appointment.] The attending military professional or [facility] nurse clinician should provide you with specific instructions regarding activity, diet, medications, and further follow up for you. Follow the medication instructions provided on your discharge. If the dosages and instructions on this sheet differ from the dosage and instructions on the bottle, follow the instructions on the bottle. [facility] is not responsible for incorrect prescription information provided by thepatient during their visit. Do not stop your medications without consulting your health care provider. Please take the list with you to your next doctor's appointment. Instructions: Coronary Angioplasty (DC), Coronary Stenting (DC), Angina (DC), Chest Pain (DC), Drug Eluting Stents Prescriptions: New Brilinta 90 mg Tablet 90 mg PO BID 90 Days Qty: 180 3RF atorvastatin 80 mg Tablet 80 mg PO QPM 30 Days Qty: 30 12RF carvedilol 6.25 mg Tablet 6.25 mg PO BID.WITH.MEALS 30 Days Qty: 60 12RF aspirin 81 mg Tablet,Delayed Release (Dr/Ec) 81 mg PO DAILY 90 Days Qty: 90 3RF nitroglycerin 0.4 mg tablet, sublingual 0.4 mg sublingual Q5M PRN (Reason: chest pain) 30 Days Qty: 25 3RF Rx Instructions: do not exceed 3 doses per episode Continued terbinafine HCl 250 mg tablet 250 mg PO HS Patient Comments: TAKE 1 TABLET BY MOUTH EVERY DAY FOR 14 DAYS tamsulosin 0.4 mg capsule 0.4 mg PO QPM Patient Comments: TAKE 1 CAPSULE BY MOUTH EVERY DAY IN THE EVENING FOR 30 DAYS losartan 25 mg tablet 25 mg PO HS Patient Comments: TAKE 1 TABLET BY MOUTH EVERY DAY Follow Up: Ko Morgan DO [Active Staff - D.O.] - 05/02/23 11:40 am Documented By: Kiki Motta MD 04/23/23 1117 Signed By: <Electronically signed by Kiki Motta MD> 04/23/23 1120 [facility] Work Phone: Evaluation noteNo [email or web address] Other Evaluation note* Diagnosis Irregular bowel habits- Primary Other specified disorder of intestines documented in [facility] Diagnosis Onset Date Resolution Status Colon cancer acute Essential hypertension acute NSTEMI (non-ST elevated myocardial infarction) acute [facility] Work Phone: History general Narrative - Reported* Type Description Date Medical History Colon Cancer Medical History Chronic Kidney Disease Medical History Hyperglycemia Medical History Essential hypertension Medical History Chronic venous insufficiency Medical History Left leg swelling Medical History Bradycardia Medical History Anemia in other chronic diseases classified elsewhere Medical History Hydrocele, left Medical History Asteatotic eczema Medical History Benign prostatic hyp erplasia with lower urinary tract symptoms Medical History TRANSITIONAL CALL CARCINOMA, PAYTON DDER Medical History Gross hematuria Medical History Lumbosacral spondylosis with rad iculopathy Medical History Allergic contact dermatitis Medical History Dizziness Medical History HISTORY OF ULCERTIVE COLITIS Surgical History colonoscopy Surgical History hydrocelectomy 2020 Surgical History cancer Surgical History colonoscopy x2 Surgical History Colectomy 2009 Surgical History scar tissue Surgical History CYSTOSCOPY 2021 Surgical History Cystoscopy 12/2022 Hospitalization History see above [employer] Other History general Narrative - Reported* Type Description Date Medical History Colon Cancer Medical History Chronic Kidney Disease Medical History Hyperglycemia Medical History Essential hypertension Medical History Chronic venous insufficiency Medical History Left leg swelling Medical History Bradycardia Medical History Anemia in other chronic diseases classified elsewhere Medical History Hydrocele, left Medical History Asteatotic eczema Medical History Benign prostatic hyp erplasia with lower urinary tract symptoms Medical History TRANSITIONAL CALL CARCINOMA, PAYTON DDER Medical History Gross hematuria Medical History Lumbosacral spondylosis with rad iculopathy Medical History Allergic contact dermatitis Medical History Dizziness Medical History HISTORY OF ULCERTIVE COLITIS Medical History ASHD Surgical History colonoscopy Surgical History hydrocelectomy 2020 Surgical History cancer Surgical History colonoscopy x2 Surgical History Colectomy 2009 Surgical History scar tissue Surgical History CYSTOSCOPY 2021 Surgical History Cystoscopy 12/2022 Surgical History LHC, PCI/stent OM branch of the LCx 04/2023 Hospitalization History see above [employer] Other Hospital course Narrative No data available for this section [facility] Discharge instructions No data available for this section [facility] Discharge instructions Additional Instructions DISCHARGE INSTRUCTIONS FOR ANGIOPLASTY/CORONARY/PERIPHERAL/STENT IMPLANT FOR ADULT ANTICOAGULATION -Since the greatest risk of a blood clot forming with the stent occurs in the first 2-3 weeks after implantation, you will need to take anticoagulants for at least 12-18 months. ANTICOAGULATION MEDICATION Aspirin 81mg once a day, Ticagrelor (Brilinta) 90mg twice a day STATIN MEDICATION Atorvastatin (Lipitor) 80 mg Drug-Eluting Stent (CASSIDY) DO NOT discontinue Brilinta/Aspirin during the first few months regardless of what you are advised by your family doctor or pharmacist, without first calling the military professional who implanted the stent. If you require pain relief during this time, please take only ACETAMINOPHEN (TYLENOL)- NO additional aspirin or ibuprofen. DISCHARGE ACTIVITIES ARE FOLLOWS: First week after discharge: -Take it easy at home, no strenuous activity. -Do not lift or pull objects over 10-15 pounds, including children, and groceries for four weeks. If puncture site is at wrist do NOT lift more than three pounds for three days. - May walk up stairs. -May shower. -No excessive scrubbing of the affected site (groin). -May ride in car. -May resume sexual intercourse after 1-2 weeks. -No MRI for 12 days. -May drive in 4-7 days. -If puncture site is at the wrist do not manipulate the wrist for 24 hours, and no soaking wrist for three days. Second Week: -May take a bath -May start walking 3 times a week for 15-20 minutes at a leisurely pace. You should be able to carry on a conversation comfortably without feeling winded. -No strenuous activity as in jogging, running, weight lifting, stair steppers, etc. until the military professional approves these activities. Check with the military professional on your first follow-up visit. CALL YOUR PHYSICIAN at [phone]: -If bleeding should occur from the catheter insertion site- apply pressure to the site then immediately call us. -Report any fever, redness, drainage, increased swelling, or firmness at the catheter insertion site. Some bruising or slight swelling may be present at the time of discharge. -Should arm or leg become cold, numb, white, or blue, contact the military professional immediately. -IF you should experience episodes of angina, e.g. chest discomfort, heaviness, tightness, pressure burning with or without radiation to the neck, jaw, arms or back- use 1 Nitrostat tablet under your tongue every 5-10 minutes and up to three tablets. IF NO RELIEF, CALL 911 or GO TO THE NEAREST EMERGENCY ROOM. -Please notify our office if you have recurrent angina. -[Cardiac Rehab Education Provided. Participation in the Cardiopulmonary Rehabilitation program is recommended. Please call Central Scheduling at [phone] to schedule your appointment.] The attending military professional or [facility] nurse clinician should provide you with specific instructions regarding activity, diet, medications, and further follow up for you. Follow the medication instructions provided on your discharge. If the dosages and instructions on this sheet differ from the dosage and instructions on the bottle, follow the instructions on the bottle. [facility] is not responsible for incorrect prescription information provided by the patient during their visit. Do not stop your medications without consulting your health care provider. Please take the list with you to your next doctor's appointment.[facility] Work Phone: Progress note No data available for this section [facility] Summary Purpose Family History Relationship Condition Age at Onset Recorded Date/T ayden father Malignant neoplasm of colon Unknown Unknown Family Member Name Dates Details Family history of malignant neoplasm: Father(V16.9, Z80.9) Status:Active Family history of cardiac di sorder: Father, Brother(V17.49, Z82.49) Status:Active History of PTCA: Father, Bro ther(V45.82, Z98.61) Status:Active Family history of deep venou s thrombosis: Mother, Father, Brother(V17.49, Z82.49) Status:Active Unknown Family Member Name Dates Details Family history of malignant neoplasm: Father(V16.9, Z80.9) Status:Active Family history of cardiac di sorder: Father, Brother(V17.49, Z82.49) Status:Active History of PTCA: Father, Bro ther(V45.82, Z98.61) Status:Active Family history of deep venou s thrombosis: Mother, Father, Brother(V17.49, Z82.49) Status:Active Unknown Family Member Name Dates Details Family history of malignant neoplasm: Father(V16.9, Z80.9) Status:Active Family history of cardiac di sorder: Father, Brother(V17.49, Z82.49) Status:Active History of PTCA: Father, Bro ther(V45.82, Z98.61) Status:Active Family history of deep venou s thrombosis: Mother, Father, Brother(V17.49, Z82.49) Status:Active Unknown Family Member Name Dates Details Family history of malignant neoplasm: Father(V16.9, Z80.9) Status:Active Family history of cardiac di sorder: Father, Brother(V17.49, Z82.49) Status:Active History of PTCA: Father, Bro ther(V45.82, Z98.61) Status:Active Family history of deep venou s thrombosis: Mother, Father, Brother(V17.49, Z82.49) Status:Active Advance Directives Advance Directive Response Recorded Date/ Time Advance Directives No May 06 10:25am Procedure Findings Note MR#: [id number] [facility] Pt. Name: Kennedy Kong Surgery Date: 03/31/2019 Room #: Z0 Date of : 1935 PROCEDURE NOTE ATTENDING: Gabriel Perez M.D. PROCEDURE PERFORMED: Colonoscopy with snare polypectomy and balloon dilation. MEDICATIONS: Fentanyl 100 mcg IV and Versed 4 mg IV. 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 The patient was dilated in the past and the last dilation was performed in 2017. The patient is scheduled to have his colon checked for possible dilation. The preparation was poor since he received enema only. PROCEDURE IN DETAIL: After obtaining the informed consent, which include the risks, benefits, alternatives, and complications, complications including bleeding, perforation, and reaction to medications, the patient was placed in the left lateral decub (more content not included)... Note MR#: [id number] [facility] Pt. Name: Kennedy Kong Surgery Date: 04/16/2019 Room #: Z0 Date of : 1935 PROCEDURE NOTE ATTENDING: Gabriel Perez M.D. DIRECTOR OF NURSING: Marilee Jiménez M.D. PROCEDURE: Colonoscopy with polypectomy and balloon dilation. ANESTHESIA: Conscious sedation with Versed 3 mg, fentanyl 75 mcg. 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 The patient underwent dilation of the stricture 2 weeks ago, but continues to have difficulty with defecation. In addition, 1 polyp was removed 2 weeks ago from the cecum and the colon preparation was poor, so optimal evaluation of the colon mucosa was not done to rule out polyps. The patient presented today for repeat colonoscopy and repeat dilation of the anastomotic stricture and also surveillance for colon polyps. EXTENT OF EXAM: Terminal (more content not included)... Chief Complaint and Reason for Visit Chief Complaint end stemi Reason for Visit Colon cancer Essential hypertension NSTEMI (non-ST elevated myocardial infarction) Chief Complaint * KENNEDY KONG is being seen for follow-up of a hospitalization for STEMI/PCI. * Patient is an 87-year-old gentleman who returns following recent non-ST elevation OK due to occluded obtuse marginal branch with primary revascularization with drug-eluting stent and is doing well. He has mild LV dysfunction, No significant coronary disease, ejection fraction of 45%. 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 He has no recurrence of angina, shortness of breath, nitrate usage or repeat hospitalizations * He is tolerating his medications well * We will follow-up again in 6 months on same therapy Additional Source Comments (unrecognized sect ion and content) No Status Records FoundNo Status Records FoundNo Status Records FoundNo Status Records FoundNo Status Records FoundNo Status Records FoundNo Status Records FoundNo Status Records FoundNo Status Records FoundNo Status Records FoundNo Status Records Found INFORMATION SOURCE (unrecogn ized section and content) DATE CREATED AUTHOR 04/16/2018 [facility] DATE CREATED AUTHOR AUTHOR'S ORGANIZ ATION 04/25/2019 [facility] DATE CREATED AUTHOR AUTHOR'S ORGANIZ ATION 11/04/2019 [facility] DATE CREATED AUTHOR AUTHOR'S ORGANIZ ATION 12/28/2022 [facility] DATE CREATED AUTHOR AUTHOR'S ORGANIZ ATION 01/23/2023 [facility] DATE CREATED AUTHOR AUTHOR'S ORGANIZ ATION 01/23/2023 [facility] DATE CREATED AUTHOR AUTHOR'S ORGANIZ ATION 04/24/2023 [facility] DATE CREATED AUTHOR AUTHOR'S ORGANIZ ATION 05/03/2023 [facility] DATE CREATED AUTHOR AUTHOR'S ORGANIZ ATION 06/27/2023 [facility] DATE CREATED AUTHOR AUTHOR'S ORGANIZ ATION 07/07/[address] [facility] DATE CREATED AUTHOR AUTHOR'S ORGANIZ ATION 09/17/2023 [facility] Care Team (unrecognized sect ion and content) Rehabilitation Services Director Relationship Specialty Start Date End Date SameerNestor PCP - General Internal Medicine 01/16/12 Team Status: Active Member Role Status Dates Nestor Estrella DO Primary Care Provider Active Team Status: Inactive Member Role Status Dates Nestor Estrella DO Primary Care Provider Active Kiki Motta MD Admit Provider, Attending Provider A ctive Grace West MD Other Provider Active Raheem Giles MD Other Provider Active Kimberly Skinner MD Other Provider Active Adriel Lay MD Other Provider Active Rashida Gould RN Other Provider Active Pyeton Norman MD Other Provider Active Misty Rothman , RETAIL CONSULTANT- Other Provider Active Endy Areavlo MD Other Provider Active Lucio Dillon MD Other Provider Active Ko Morgan DO Other Provider Active Christy Love APRN Other Provider Active Hannah Abraham MD Other Provider Active REASON FOR VISIT (unrecogniz ed section and content) PATIENT IS HERE AT THE REQUE [facility] OF DR. ESTRELLA HX OF BOWEL RESECTION. DR GATES REVIEW REFER AND SAID HE WANTED TO SEE PT IN OFFICE AND GO OVER HISTORY1 month Follow upGI Question2 Week Check Upfinish medicationTBH ER FOLLOW UPPossible Medication ChangeAnkles, Knees, BPWants in SaturdayLab ResultsWellnesspossible shinglesdiarrheafootRed Spotsrefill Reason Comments Established Patient Follow-Up Reoccuring bowel blockage prescription6 MONTH FOLLOW UP Source Comments (unrecognize d section and content) In the event this informatio n is protected by the Federal Confidentiality of Alcohol and Drug Abuse Patient Records regulations: The Federal rules restrict any use of the information to criminally investigate or prosecute any alcohol or drug abuse patient.[facility] FOR RECORDS PERTAINING TO PATIENTS WHO ARE OR HAVE BEEN ENROLLED IN A CHEMICAL DEPENDENCY/SUBSTANCEABUSE PROGRAM, SOME INFORMATION MAY BE OMITTED. This clinical summary was aggregated from multiple sources. Caution should be exercised in using it in the provision of clinical care. This summary normalizes information from multiple sources, and as a consequence, information in this document may materially change the coding, format and clinical context of patient data. In addition, data may be omitted in some cases. CLINICAL DECISIONS SHOULD BE BASED ON THE PRIMARY CLINICAL RECORDS. [facility]. provides no warranty or guarantee of the accuracy or completeness of information in this document.
--- NOTE | 2023-10-09 11:16 | XR_ITS ---
The [address] [address] Patient Name: JANIE KONG MRN: [id number] date: 1935 Sex: M Assigned Patient Location: ER Current Patient Location: ED.MAIN Accession/Order Number: [id number] Exam Date: 10/09/2023 11:30 Report Date: 10/09/2023 12:22 At the request of: MIKIE CHRISTINA Procedure: XR acute abdomen series EXAMINATION: XR acute abdomen series HISTORY: constipation COMPARISON: No relevant comparison available. FINDINGS: LUNGS: No infiltrate, pneumothorax, or pleural effusion. MEDIASTINUM: No abnormal widening. Aortic atherosclerosis BOWEL GAS PATTERN: Scattered air-fluid levels with dilation of small bowel loops in the left upper quadrant measuring up to 4 cm. Scattered air-fluid levels. Moderate amount of stool in the right colon FREE AIR: None. CALCIFICATIONS: None significant. BONES: Moderate to severe degenerative changes with rotatory dextrocurvature of the lumbar spine OTHER: Negative. XR/XR acute abdomen series IMPRESSION: Clear lungs Moderate stool in the right colon Dilated small bowel with air-fluid levels. Consider ileus versus bowel obstruction Electronically authenticated by: AUBREY SMITH Date: 10/09/2023 12:22
--- NOTE | 2023-10-09 12:58 | CT_ITS ---
The [address] [address] Patient Name: JANIE KONG MRN: [id number] date: 1935 Sex: M Assigned Patient Location: ER Current Patient Location: ER Accession/Order Number: [id number] Exam Date: 10/09/2023 14:37 Report Date: 10/09/2023 15:35 At the request of: MIKIE CHRISTINA Procedure: CT abdomen pelvis w con CT abdomen pelvis w con, 10/09/2023 2:37 PM EST INDICATION: Follow-up imaging for ileus versus small bowel obstruction. COMPARISON: CT of the abdomen and pelvis 11/03/2022. TECHNIQUE: Axial images of the abdomen and pelvis were obtained after the administration of oral and IV contrast. Multiplanar reformatted images were generated and reviewed as needed. Dose reduction techniques were achieved by using automated exposure control and/or adjustment of mA and/or kV according to patient size and/or use of iterative reconstruction technique. FINDINGS: Subsegmental atelectasis/scar at the lung bases. No lobar consolidation or effusion. Cyst left hepatic lobe and subcentimeter hepatic hypodensities, too small to characterize. Calcified hepatic and splenic granulomas. The gallbladder is contracted. Pancreas and adrenals unremarkable. Symmetric nephrograms without evidence of obstruction. Left parapelvic cysts. No urolithiasis. 1.2 cm focus of urinary bladder wall thickening adjacent to the right UVJ. No perivesicular fat stranding enlarged prostate gland. No aortic aneurysm. Small bowel obstruction with abrupt caliber change in the lower mid abdomen. Distal small bowel extending to the ileocecal valve is collapsed. Normal appendix. Large amount of stool within the cecum and throughout the colon. Partial colectomy with patent rectosigmoid surgical anastomosis. Mild perirectal and presacral fat stranding. No mesenteric or retroperitoneal lymphadenopathy. No pneumatosis, pneumoperitoneum or ascites. Small fat-containing left inguinal hernia with trace fluid in the hernia sac. No acute fracture. Lumbar spondylosis. CT/CT abdomen pelvis w con IMPRESSION: 1. Small bowel obstruction with zone of transition in the lower mid abdomen. 2. Large amount of stool within the cecum and throughout the colon. This can represent clinically has chronic constipation. 3. Focal urinary bladder wall thickening adjacent to the right UVJ. Discrete uroepithelial lesion cannot be excluded. 4. Prostatomegaly. Electronically authenticated by: FADIA VALLES Date: 10/09/2023 15:35
[2023-10-09 13:05] LABS: Basophils Percent Auto 0.1 % (0.2-2.0); Eosinophils Percent Auto 0.1 % (0.9-7.0); Hematocrit 41.5 % (42.0-54.0); Hemoglobin 13.4 g/dL (14.0-18.0); Immature Granulocytes Abs Auto 0.03 10^3/uL (0.00-0.03); Immature Granulocytes Pct Auto 0.3 % (0.0-0.5); Lymphocytes Absolute Auto 0.6 10^3/uL (1.2-3.8); Lymphocytes Percent Auto 5.8 % (20.5-60.0); Mean Corpuscular HGB Conc 32.3 g/dL (29.9-35.2); Mean Corpuscular Hemoglobin 29.9 pg (25.9-34.0); Mean Corpuscular Volume 92.6 fL (80.0-94.0); Mean Platelet Volume 8.7 fL (9.5-13.5); Monocytes Absolute Auto 1.2 10^3/uL (0.3-0.8); Monocytes Percent Auto 11.1 % (1.7-12.0); Neutrophils Absolute Auto 8.6 10^3/uL (1.4-6.5); Neutrophils Percent Auto 82.6 % (43.0-75.0); Platelet Count 193 10^3/uL (150-450); Red Blood Count 4.48 10^6/uL (4.70-6.10); Red Cell Distribution Width 13.7 % (11.0-15.0); White Blood Count 10.5 10^3/uL (4.0-11.0)
[2023-10-09 13:20] LABS: Alanine Aminotransferase 15 U/L (16-63); Albumin Globulin Ratio 0.9; Albumin Level 3.1 g/dL (3.4-5.0); Alkaline Phosphatase 58 U/L (46-116); Anion Gap 13.9; Aspartate Amino Transferase 10 U/L (15-37); BUN Creatinine Ratio 23.7; Bilirubin Total 0.4 mg/dL (0.2-1.0); Calcium 9.2 mg/dL (8.5-10.1); Carbon Dioxide 27.2 mmol/L (21.0-32.0); Chloride 104 mmol/L (98-107); Estimated GFR (African America >60 (>=60); Estimated GFR (Non-African Ame >60 (>=60); Globulin 3.5 g/dL; Glucose 141 mg/dL (74-106); Potassium 4.1 mmol/L (3.5-5.1); Sodium 141 mmol/L (136-145); Total Protein 6.6 g/dL (6.4-8.2)
[2023-10-09 13:23] LABS: Lactate/Lactic Acid 1.4 mmol/L (0.4-2.0)
[2023-10-09] MEDS: 0.9 % SODIUM CHLORIDE 1,000 ML 1000 ML IV (13:43)
[2023-10-09] MEDS: ONDANSETRON PF 4 MG/2 ML VIAL IV (13:43)
[2023-10-09 17:35] VITALS: BP 153/75; PULSE 84; O2SAT 97
--- NOTE | 2023-10-09 17:54 | ED_ITS ---
HPI - General Adult General Chief complaint: Abdominal Pain Stated complaint: CONSTIPATION Time Seen by Provider: 10/09/23 12:57 Source: patient Mode of arrival: walk-in Limitations: no limitations History of Present Illness HPI narrative: Patient is a 88-year-old male who is presenting to the Emergency Room with chief complaint of constipation for the past 4-5 days. Patient has a very complex history. Patient has a history of rectal colon cancer back in . Patient has had several small bowel obstructions in the past. Patient's had 5 different surgeries. Patient says one surgery has been [facility] for the 1st one, patient has had several surgeries at [facility] by Dr. Rivera. Patient has been admitted to [facility] for this previously along with seeing surgeons at [facility]. It has been recommended in the past patient have a colostomy bag, patient has refused this. Patient was a home, fairly active. Patient just had a myocardial infarction in September 2023, patien t had one stent placed at [facility], patient is on Plavix. Patient had a drug eluting stent placed, And patient is currently on Plavix. Patient has been using [id number] products to help with bowel movements with no relief. Patient has no fever. Patient had a few episodes of nausea and vomiting earlier this morning. When patient arrived to the Emergency Room, had no nausea, no abdominal pain, cramping. No other acute complaints. . All systems are negative except as noted/marked. All systems reviewed and otherwise negative. . Nurses note and vital signs reviewed and patient is not hypoxic. General: The patient appears well and in no apparent distress. Patient is resting comfortably on cart. Patient is not toxic, lethargic, or listless Skin: Warm, dry, no pallor noted. There is no rash noted. No petechiae, purpura. Head: Normocephalic, atraumatic Eye: Normal conjunctiva, no drainage, EOMI. PERRL Ears, Nose, Mouth, and Throat: oral mucosa is moist. Nares patent. Mouth without vesicles. Cardiovascular: Regular Rate and Rhythm, no murmur, gallop, rub Respiratory: Patient is in no distress, no accessory muscle use, lungs are clear to auscultation, no wheezing, rales or rhonchi Back: non-tender, no CVA tenderness bilaterally to percussion. No CT LS midline pain GI: soft, Hypoactive bowel sounds, no distention, no peritoneal signs, no tenderness to palpation, no masses appreciated. No rebound, guarding, or rigidity noted. No flank pain bilateral, No distention Musculoskeletal: Patient has full range of motion of all of the extremities, no motor, sensory, or focal neurological deficits Neurological: A&O x3, normal speech Psychiatric: Cooperative Related Data Home Medications Medication Instructions Recorded Confirmed tamsulosin 0.4 mg capsule 0.4 mg PO DAILY 04/22/23 10/09/23 aspirin 81 mg tablet,delayed 81 mg PO DAILY 10/09/23 10/09/23 release carvedilol 6.25 mg tablet 6.25 mg PO Q12H 10/09/23 10/09/23 clopidogrel 75 mg tablet 75 mg PO DAILY 10/09/23 10/09/23 rifaximin 550 mg tablet (Xifaxan) 550 mg PO TID 10/09/23 10/09/23 rosuvastatin 40 mg tablet 40 mg PO DAILY 10/09/23 10/09/23 Allergies Allergy/AdvReac Type Severity Reaction Status Date / Time No Known Drug Allergies Allergy Verified 10/09/23 10:41 [facility] Medical History (Updated 10/09/23 @ 18:20 by Randal Lucas MD) Trigeminal neuralgia ?G50.0 - Trigeminal neuralgia (ICD-10) Osteoarthritis ?M19.90 - Unspecified osteoarthritis, unspecified site (ICD-10) Skin cancer ?C44.90 - Unspecified malignant neoplasm of skin, unspecified (ICD-10) Colon cancer ?C18.9 - Malignant neoplasm of colon, unspecified (ICD-10) High cholesterol ?E78.00 - Pure hypercholesterolemia, unspecified (ICD-10) PVD (peripheral vascular disease) ?I73.9 - Peripheral vascular disease, unspecified (ICD-10) BPH (benign prostatic hyperplasia) ?N40.0 - Benign prostatic hyperplasia without lower urinary tract symptoms (ICD-10) Chronic kidney disease ?N18.9 - Chronic kidney disease, unspecified (ICD-10) Surgical History (Updated 04/22/23 @ 04:00 by Dhaval Callejas) S/P cataract extraction and insertion of intraocular lens ?Z98.49 - Cataract extraction status, unspecified eye (ICD-10) ?Z96.1 - Presence of intraocular lens (ICD-10) History of colonoscopy ?Z98.890 - Other specified postprocedural states (ICD-10) S/P cystoscopy ?Z98.890 - Other specified postprocedural states (ICD-10) Social History Smoking status: Former smoker Exam Constitutional Vital Signs, click to edit/add: Last Vital Signs Temp 98.2 F 10/09/23 10:38 Pulse 84 10/09/23 17:35 Resp 18 10/09/23 10:38 BP 153/75 H 10/09/23 17:35 Pulse Ox 97 10/09/23 17:35 O2 Del Method Room Air 10/09/23 10:38 Course Vital Signs Vital signs: Vital Signs Temperature 98.2 F 10/09/23 10:38 Pulse Rate 94 H 10/09/23 10:38 Respiratory Rate 18 10/09/23 10:38 Blood Pressure 126/98 H 10/09/23 10:38 Pulse Oximetry 98 10/09/23 10:38 Oxygen Delivery Method Room Air 10/09/23 10:38 Temperature 98.2 F 10/09/23 10:38 Pulse Rate 84 10/09/23 17:35 Respiratory Rate 18 10/09/23 10:38 Blood Pressure 153/75 H 10/09/23 17:35 Pulse Oximetry 97 10/09/23 17:35 Oxygen Delivery Method Room Air 10/09/23 10:38 Medical Decision Making MDM Narrative Medical decision making narrative: Patient CT shows a small bowel obstruction was on a transition lower midabdomen. Patient has large amount of stool within the cecum and throughout the colon, this could represent clinically has chronic constipation. Patient has urinary bladder wall thickening, Prostatomegaly. Patient has no elevated white blood cell count. 1600 [address] have spoken to Dr. Gomez, surgeon on-call. Case was discussed. Patient has a drug-eluting stent, is on Plavix, and cannot come off of Plavix secondary to the stent placed. Secondary to being high risk with multiple surgeries, he referred patient to tertiary care center. 1640 I did also speak to Dr. Noriega, surgeon from [facility]. He declined patient's case secondary to complexity of his past surgical history. 1730 I spoke to patient's grandson, Dr. Oh Amos. cell # [phone]. He is a internal medicine physician at the [facility]. Patient's case was discussed with Oh, I had permission from his grandfather/my patient. He is aware of the patient, and recommended to use his name at the transfer center line as well help with transfer. 174 I have spoken to Nelly at the [facility] transfer line, And she will Reach out to the surgical team and a surgeon will be calling back for additional information. 1830 IV and speaking to grandson, Dr. Oh Amos. We are trying to see if we can push films to [facility] so they can review the CAT scan. We do have copies on a CD, we do not easily have the ability is to send images through the PAC system. 190 We have accepting physician, patient will be a transfer from Emergency Room to Emergency Room to [facility], Dr Wallace. Patient's son is picking him up and driving him to [facility]. Patient is aware to remain nothing by mouth. Patient has not had any pain, nausea, or any other acute concerns in the past 9 hours in the Emergency Room. Critical care time 55 minutes exclusive from separate billable procedures that were performed. The following was considered in the determination of critical care but not limited to the level of medical decision making, intensive cardiac and/or respiratory monitoring, frequent vital sign monitoring, evaluation of laboratory studies, evaluation of radiographic studies, oxygen monitoring, and constant monitoring and speaking to family at bedside. Multiple phone calls to multiple surgeons, transfer Center's, and patient's grandson with helping arrange transferred to [facility]. Lab Data Labs: Lab Results 10/09/23 10/09/23 Range/Units 12:43 18:05 WBC 10.5 (4.0-11.0) 10^3/uL RBC 4.48 L (4.70-6.10) 10^6/uL Hgb 13.4 L (14.0-18.0) g/dL Hct 41.5 L (42.0-54.0) % MCV 92.6 (80.0-94.0) fL MCH 29.9 (25.9-34.0) pg MCHC 32.3 (29.9-35.2) g/dL RDW 13.7 (11.0-15.0) % Plt Count 193 (150-450) 10^3/uL MPV 8.7 L (9.5-13.5) fL Neut % (Auto) 82.6 H (43.0-75.0) % Lymph % (Auto) 5.8 L (20.5-60.0) % Stone % (Auto) 11.1 (1.7-12.0) % Eos % (Auto) 0.1 L (0.9-7.0) % Baso % (Auto) 0.1 L (0.2-2.0) % Neut # (Auto) 8.6 H (1.4-6.5) 10^3/uL Lymph # (Auto) 0.6 L (1.2-3.8) 10^3/uL Stone # (Auto) 1.2 H (0.3-0.8) 10^3/uL Eos # (Auto) 0.0 (0.0-0.7) 10^3/uL Baso # (Auto) 0.0 (0.0-0.1) 10^3/uL Abs Immat Gran (auto) 0.03 (0.00-0.03) 10^3/uL Imm/Tot Granulo (auto) 0.3 (0.0-0.5) % Sodium 141 (136-145) mmol/L Potassium 4.1 (3.5-5.1) mmol/L Chloride 104 (98-107) mmol/L Carbon Dioxide 27.2 (21.0-32.0) mmol/L Anion Gap 13.9 BUN 27.0 H (7.0-18.0) mg/dL Creatinine 1.14 (0.70-1.30) mg/dL Est GFR ( Amer) >60 (>=60) Est GFR (Non-Af Amer) >60 (>=60) BUN/Creatinine Ratio 23.7 Glucose 141 H (74-106) mg/dL Lactate 1.4 (0.4-2.0) mmol/L Calcium 9.2 (8.5-10.1) mg/dL Total Bilirubin 0.4 (0.2-1.0) mg/dL AST 10 L (15-37) U/L ALT 15 L (16-63) U/L Alkaline Phosphatase 58 (46-116) U/L Total Protein 6.6 (6.4-8.2) g/dL Albumin 3.1 L (3.4-5.0) g/dL Globulin 3.5 g/dL Albumin/Globulin Ratio 0.9 Lipase 26.0 (16.0-77.0) U/L Urine Color Yellow (YELLOW) Urine Clarity Clear (CLEAR) Urine pH 5.5 (5.0-9.0) Ur Specific [place] 1.010 (1.005-1.025) Urine Protein Negative (NEG/TRACE) mg/dL Urine Glucose (UA) Negative (NEGATIVE) mg/dL Urine Ketones Negative (NEGATIVE) mg/dL Urine Occult Blood Small A (NEGATIVE) Urine Nitrite Negative (NEGATIVE) Urine Bilirubin Negative (NEGATIVE) Urine Urobilinogen 0.2 (0.2-1.0) EU/dL Ur Leukocyte Esterase Negative (NEGATIVE) Urine RBC 0-2 (0-2) #/HPF Urine WBC None seen (NONE SEEN) #/HPF Ur Squamous Epith Cells Rare (NONE/RARE) #/LPF Urine Crystals None seen (None Seen) #/HPF Urine Bacteria None seen (NONE SEEN) #/HPF Urine Casts None seen (NONE SEEN) #/LPF Urine Mucus None seen (NONE SEEN) Discharge Plan Discharge Chief Complaint: Abdominal Pain Clinical Impression: Small bowel obstruction, Constipation Patient Disposition: [facility] Discharge location: [facility] ER to ER, Dr Wallace, Patient is going by private car, patient's son Condition: Serious Mode of Transportation: Private Vehicle
[2023-10-09] MEDS: 0.9 % SODIUM CHLORIDE 1,000 ML 125 ML IV (18:02)
[2023-10-09 18:15] LABS: Bilirubin Urine NEGATIVE (NEGATIVE); Blood Urine SMALL (NEGATIVE); Clarity Urine CLEAR (CLEAR); Color Urine YELLOW (YELLOW); Glucose Urine UA NEGATIVE (NEGATIVE); Ketones Urine NEGATIVE (NEGATIVE); Leukocyte Esterase Urine NEGATIVE (NEGATIVE); Nitrite Urine NEGATIVE (NEGATIVE); Protein Urine NEGATIVE (NEG/TRACE); Urobilinogen Urine 0.2 EU/dL (0.2-1.0); pH Urine 5.5 (5.0-9.0)
[2023-10-09 18:18] LABS: RBC Urine 0-2 #/HPF (0-2); WBC Urine NONE SEEN #/HPF (NONE SEEN)
[2023-10-09 18:19] LABS: Bacteria Urine NONE SEEN #/HPF (NONE SEEN); Cast Seen? NONE SEEN #/LPF (NONE SEEN); Crystals Seen? None Seen #/HPF (None Seen); Mucus Urine NONE SEEN (NONE SEEN); Squamous Epithelial Cell Urine RARE #/LPF (NONE/RARE)
== END 2023-10-09 20:06 | disposition short-term general hospital (02) ==
PROVIDERS: Emergency Provider Emergency Medicine; PCP Internal Medicine
DX: K56.609 Unspecified intestinal obstruction, unspecified as to partial versus complete obstruction (principal); K59.00 Constipation, unspecified; I21.9 Acute myocardial infarction, unspecified; G50.0 Trigeminal neuralgia; M19.90 Unspecified osteoarthritis, unspecified site; Z85.828 Personal history of other malignant neoplasm of skin; E78.00 Pure hypercholesterolemia, unspecified; N40.0 Benign prostatic hyperplasia without lower urinary tract symptoms; N18.9 Chronic kidney disease, unspecified; I73.9 Peripheral vascular disease, unspecified; Z98.49 Cataract extraction status, unspecified eye; Z96.1 Presence of intraocular lens; Z98.890 Other specified postprocedural states; Z87.891 Personal history of nicotine dependence; Z95.5 Presence of coronary angioplasty implant and graft; Z85.038 Personal history of other malignant neoplasm of large intestine; Z85.048 Personal history of other malignant neoplasm of rectum, rectosigmoid junction, and anus; Z79.02 Long term (current) use of antithrombotics/antiplatelets; Z79.82 Long term (current) use of aspirin; Z79.899 Other long term (current) drug therapy
CPT/HCPCS: 36415; 74022; 74177; 80053; 81001; 83605; 83690; 85025; 96361; 96374; 99285; Q9963; Q9967

== ENCOUNTER 2023-11-22 07:45 | Outpatient (OUT) | payer MEDICARE, SELFPAY ==
--- OUTSIDE RECORDS SUMMARY | 2023-11-22 07:51 | XMS_ITS | CCD ---
Author Name Unknown Address [address] [place] [address] Organization [facility] Care Team Providers Care Voucher Clerk Name Role Phone ADRIEL RIOS Unavailable NESTOR Vela Unavailable Unavailable ADRIEL RIOS Unavailable Unavailable NESTOR ESTRELLA Unavailable Unavailable NESTOR ESTRELLA Primary Care Physician JIMMY ESTRELLA Primary Care Unavailable ALZAETYLER REECEIL Referring Unavailable LUKE LAN Attending Unavailable HANG OHARA Referring Unavailable JIMMY ESTRELLA Primary Care Unavailable RAULITO CAMACHO Admitting Unavailable CONSULT, SURGERY - GENERAL (EMERGENT) Consulting Unavailable Reid Ann Unavailable Nestor Estrella Unavailable Nestor Estrella DO Primary Care Provider AVEL CAMACHO Referring Unavailable AVEL CAMACHO Attending Unavailable NESTOR ESTRELLA Primary Care Unavailable SAMEER, DR BAEZ Consulting Unavailable BALL, DR BAEZ Attending Unavailable BALL, DR BAEZ Admitting Unavailable BALL, DR BAEZ Primary Care Unavailable BALL, DR BAEZ Consulting Unavailable SAMEER, DR BAEZ Primary Care Unavailable SAMEER, DR BAEZ Attending Unavailable BALL, DR BAEZ Admitting Unavailable LUIS, DR AUBREY Barclay Consulting Unavailable DIETRICH ., DR ESPINAL Attending Unavailable REQUEST, NONE LISTED Primary Care Unavaila ble DIETRICH ., DR ESPINAL Consulting Unavailable DIETRICH ., DR ESPINAL Admitting Unavailable BALL, DR BAEZ Consulting Unavailable BALL, DR BAEZ Attending Unavailable BALL, DR BAEZ Admitting Unavailable BALL, DR BAEZ Primary Care Unavailable LEV, DR HANG [place]ios [...] LISETH ., TASHA Admitting Unavailable BALL, DR BAEZ Primary Care Unavailable LISETH ., TASHA Consulting Unavailable DIETRICH ., DR ESPINAL Attending Unavailable REQUEST, DR NONE LISTED Primary Care Unavaila ble DIETRICH ., DR ESPINAL Admitting Unavailable BALL, DR BAEZ Consulting Unavailable BALL, DR BAEZ Attending Unavailable BALL, DR BAEZ Admitting Unavailable REQUEST, DR NONE LISTED Primary Care Unavaila ble BALL, DR BAEZ Consulting Unavailable BALL, DR BAEZ Attending Unavailable REQUEST, DR NONE LISTED Primary Care Unavaila ble BALL, DR BAEZ Admitting Unavailable BALL, DR BAEZ Primary Care Unavailable BALL, DR BAEZ Attending Unavailable BALL, DR BAEZ Admitting Unavailable BALL, DR BAEZ Consulting Unavailable KLIPPER, AUBREY Consulting Unavailable BALL, DR BAEZ Consulting Unavailable BALL, DR BAEZ Attending Unavailable BALL, DR BAEZ Primary Care Unavailable BALL, DR BAEZ Admitting Unavailable DIETRICH ., DR ESPINAL Consulting Unavailable DIETRICH ., DR ESPINAL Attending Unavailable REQUEST, DR NONE LISTED Primary Care Unavaila ble DIETRICH ., DR ESPINAL Admgeeta Unavailable DIETRICH ., DR ESPINAL Admitting Unavailable DIETRICH ., DR ESPINAL Consulting Unavailable DIETRICH ., DR ESPINAL Attending Unavailable BALL, DR BAEZ Primary Care Unavailable DIETRICH ., DR ESPINAL Consulting Unavailable DIETRICH ., DR ESPINAL Attending Unavailable REQUEST, DR NONE LISTED Primary Care Unavaila ble DIETRICH ., DR ESPINAL Admitting Unavailable BALL, DR BEAZ Referring Unavailable DIETRICH ., DR ESPINAL Admgeeta Unavailable DIETRICH ., DR ESPINAL Attending Unavailable BALL, DR BAEZ Primary Care Unavailable DIETRICH ., DR ESPINAL [...] ble DIETRICH ., DR ESPINAL Admitting Unavailable Ball, DO Baez Primary Care Provider [phone] MD Kiki Motta Admit Provider MD Kiki Motta Attending Provider MD Grace West Other Provider MD Raheem Giles Other Provider MD Kimberly Skinner Other Provider MD Adriel Lay Other Provider DARLENE Gould Other Provider Unavailable MD Peyton Norman Other Provider L[facility] Misty Soriano Other Provider MD Endy Arevalo Other Provider MD Lucio Dillon Other Provider DO Ko Morgan Other Provider MIGUEL White Other Provider MD Hannah Abraham Other Provider [phone] Nestor Estrella Unavailable Unavailable Unavailable Eddie, Dr. Adriel Pierre Attending Raegan Estrella, Dr. Nestor Lovelace Primary Care Marcella Estrella, Dr. Nestor Lovelace Primary [facility] Marcella Morgan, Dr. Adriel Pierre Referring Raegan Morgan, Dr. Adriel Pierre Attending Raegan Estrella, Dr. Nestor Lovelace [facility] Marcella Morgan, Dr. Adriel Pierre Attending Raegan Estrella, Dr. Nestor Lovelace Primary [facility] Suzievaana maria weeks Asaad, Imad Unavailable Jimmy Estrella MD Primary Care Provider [phone] DO Nestor Estrella Primary Care Provider MD Zofia Gates Attending Provider [phone] Nestor Estrella Primary Care Unavailable Asaad, Imad Admitting Unavailable Asaad, Imad Attending Unavailable Nestor Estrella Primary Care Unavailable Alahmad, Alaa Admitting Unavailable Frantzhmpat Alaa Attending Unavailable Grace West Consulting Unavailable Raheem Giles Consulting Unavailable Kimberly Skinner Consulting Unavailable Adriel Lay Consulting Unavail able Rashida Gould Consulting Unavailable Peyton Norman Consulting Unavailable Misty Rothman Consulting Unavailable Endy Arevalo Consulting Unavailab Lucio Cheung Consulting Unavailab Ko Piper Consulting Unavailable Christy White Consulting Unavailable Hannah Abraham Consulting Unavailable DIETRICH, Kylie R Attending Unavailable DIETRICH, Kylie R Attending Unavailable DIETRICH, Kylie R Attending Unavailable DIETRICH, Kylie R Referring Unavailable DIETRICH, Kylie R Admitting Unavailable DIETRICH, Kylie R Attending Unavailable DIETRICH, Kylie R Admitting Unavailable DIETRICH, Kylie R Attending Unavailable DIETRICH, Kylie R Attending Unavailable DIETRICH, Kylie R Attending Unavailable DIETRICH, Kylie R Attending Unavailable DIETRICH, Kylie R Attending Unavailable DIETRICH, Kylie R Attending Unavailable DIETRICH, Kylie R Attending Unavailable DIETRICH, Kylie R Attending Unavailable DIETRICH, Kylie R Attending Unavailable DIETRICH, Kylie R Attending Unavailable Nestor Estrella DO Primary Care Provider Allergies Allergy Classification Reported Allergen(s) Allergy Type Date of Onset Reaction(s) Facility (3 sources) Amoxicillin; Translations: [AMOXICILLIN] Drug Allergy 04-28-2013 Other: See Comments [facility] Medications Current Medications Medication Drug Class(es) Dates Sig (Normalized) Sig (Original) aspirin 81 mg chewable tablet (20 sources) Platelet Aggregation Inhibitor, Nonsteroidal Anti-inflammatory Drug Start: 11-20-2023 End: 11-19-2024 aspirin 81 mg chewable tablet Indications: Atherosclerosis of [place] coronary artery, unspecified whether angina present, unspecified whether [place] or transplanted heart , Stented coronary artery , Non-ST elevation myocardial infarction (NSTEMI) ([facility]) Chew 1 tablet (81 mg) once daily. 90 tablet 3 11/20/2023 11/19/2024 Active Start: 10-10-2023 End: 10-10-2023 aspirin chewable tablet 81 m g Start: 05-07-2023 take 1 tablet by mouth once da marci Aspirin 81 81 MG 1 tablet Orally Once a day Apr, Active Start: 04-22-2023 take 1 tablet by dianne th every twenty-four hours Aspirin 81 81 MG 1 tablet Orally Once a day Apr, Active take 1 tablet by dianne th every twenty-four hours Aspirin 325 MG 1 tablet Orally Once a day Not-Taking/PRN beta prostate (10 sources) Start: 09-01-2021 beta prostate beta prostate Start Date: 09/01/21 Status: Ordered carvedilol 6.25 mg oral tablet (20 sources) alpha-Adrenergi c Myra, beta-Adrenergic Myra Start: 05-02-2023 take 2 tablets by mouth every twelve hours Carvedilol 6.25 MG 2 tablets with food Orally Twice a day Apr, Active Start: 05-02-2023 take 1 tablet by dianne every twelve hours Carvedilol 25 MG 1 tablet with food Orally Twice a day for 30 days Apr, Active Start: 04-22-2023 End: 10-10-2023 carveDILOL (COREG) tablet 6. 25 mg cefdinir 300 mg oral capsule (10 sources) Cephalosporin Antibacterial Start: 06-14-2020 cefdinir 300 mg Cap See Instructions, Refills(s) 0 Start Date: 06/14/20 Status: Ordered clopidogrel 75 mg oral tablet (20 sources) P2Y12 Platelet Inhibitor Start: 05-23-2023 End: 10-10-2023 take 1 tablet by mouth every twenty-four hours Clopidogrel Bisulfate 75 MG 1 tablet Orally Once a day May, Active Start: 05-23-2023 Clopidogrel Bi sulfate 75 MG Oral Tablet take 8 tablets ( 600mg) x one dose only, then take one tablet daily Quantity: 98 Refills: 3 Ordered: 23-May-2023 Adriel Morgan DO Start : 23-May-2023 Active new start, replaces Brilinta docusate sodium 100 mg oral capsule (20 sources) take 1 capsule by mo [facility] every twenty-four hours Stool Softener 100 MG 1 capsule as needed Orally Once a day Active take 1 tablet by mouth once elian y Stool Softener 100 MG Oral Tablet TAKE 1 TABLET DAILY DIRECTED. Quantity: 0 Refills: 0 Ordered: 02-May-2023 Active Comment on above: Take 100 mg by mouth as needed for constipation. doxycycline hyclate 100 mg oral capsule (5 sources) Tetracycline-class Drug Start: 3 take 1 capsule by mouth every twenty-four hours Doxycycline Hyclate 100 MG 1 capsule Orally Once a day for 14 days Aug, Active DuoDERM CGF Dressing - (5 sources) Start: 3 DuoDERM CGF Dressing - as directed Externally daily for 30 days Aug, Active losartan potassium 25 mg oral tablet (20 sources) Angiotensin 2 Receptor Myra Start: End: 3 take 25 mg by mouth at bedtime Losartan Active 25 MG PO Bedtime April 21, 2023 11:00pm losartan jase um (LOSARTAN ORAL) Take by mouth once daily. 0 Active Comment on above: Take by mouth once d aily. nitroglycerin 0.4 mg sublingual tablet (2 sources) Nitrate Vasodilator Start: 04-22-20 Nitroglycerin Active 0.4 MG SUBLINGUAL Q5M April 21, 2023 11:00pm do not exceed 3 doses per episode tamsulosin hydrochloride 0.4 mg oral capsule (20 sources) alpha-Adrenergic Myra Start: 11-18-19 End: 10-10-20 take 1 capsule by mouth once daily in the evening Tamsulosin HCl 0.4 MG 1 capsule Orally Once a day, in evening Oct, Active terbinafine 250 mg oral tablet (6 sources) Allylamine Antifungal Start: 04-12-20 take 250 mg by mouth at bedtime Terbinafine Hcl Active 250 MG PO Bedtime April 21, 2023 11:00pm Start: 04-12-2023 Terbinafine HC l 1 % 1 application Externally twice daily for 14 days Mar, Active ticagrelor 90 mg oral tablet (7 sources) Start: 04-22-2023 take 1 tablet by mouth twice daily Ticagrelor (Brilinta) 90 mg Tablet Active 90 MG PO Twice daily 180 90 April 21, 2023 11:00pm triamcinolone acetonide 1 mg/ml topical cream (20 [...] Drug Class(es) Dates Sig (Normalized) Sig (Original) acetaminophen 325 mg oral tablet (1 source) Start: 10-10-2023 End: 10-10-2023 take 1 tablet by mouth every four hours as needed Acetaminophen (TYLENOL) tablet 650 mg albuterol 0.83 mg/ml inhalation solution (20 sources) beta2-Adrenergic Agonist Albuterol Sulfate (2.5 MG/3ML) 0.083% 3 mL as needed Inhalation every 6 hrs Not-Taking/PRN Albuterol Sulfat e (2.5 MG/3ML) 0.083% 3 mL as needed Inhalation every 6 hrs Not-Taking aluminum hydroxide 40 mg/ml / magnesium hydroxide 40 mg/ml / simethicone 4 mg/ml oral suspension (1 source) Start: 10-10-2023 End: 10-10-2023 take 30 mL by mouth every six hours as needed alum/mag hydrox.-simethicone oral suspension 30 mL atorvastatin 80 mg oral tablet (9 sources) HMG-CoA Reductase Inhibitor Start: 04-22-2023 take 1 tablet by mouth once daily in the evening Atorvastatin Calcium 80 MG Oral Tablet TAKE 1 TABLET BY MOUTH EVERY EVENING FOR 30 DAYS Quantity: 90 Refills: 3 Ordered: 23-May-2023 Adriel Morgan DO Start : 16-May-2023 Active Calcium (20 sources) Phosphate Binder, Calcium Calcium 150 MG as directed Orally Not-Taking/PRN Calcium 150 MG a s directed Orally Not-Taking cefTRIAXone (20 sources) Cephalosporin Antibacterial Start: 10-24-2014 Rocephin 500 mg Oct, 1 grm cephalexin 500 mg oral capsule (2 sources) Cephalosporin Antibacterial Start: 08-19-2021 End: 04-22-2023 take 500 mg by mouth twice daily Cephalexin Discontinued 500 MG PO Twice daily 09 08August 18, 2021 11:00pm April 22, 2023 10:06am ciprofloxacin 250 mg oral tablet (10 sources) Quinolone Antimicrobial Start: 12-07-2022 take 1 tablet by mouth once daily Cipro 250 mg Tab 250 mg = 1 tab(s), Oral, Daily, Take 1 tablet the day before the procedure and 1 tablet after the procedure, # 6 tab(s), Refills(s) 0, Pharmacy: [facility]/pharmacy #[id number], 178, cm, 09/01/21 10:42:00 EST, Height/Length Dosing, 78, kg, 09/01/21 10:42:00 EST, W... Start Date: 12/07/22 Status: Ordered Start: 10-26-2022 take 1 tablet by dianne th once daily Cipro 250 mg Tab 250 mg = 1 tab(s), Oral, Daily, Take 1 tablet the day before the procedure and 1 tablet after the procedure, # 2 tab(s), Refills(s) 0, [id number], cm, 09/01/21 10:42:00 EST, Height/Length Dosing, 78, kg, 09/01/21 10:42:00 EST, W... Start Date: 10/26/22 Status: Ordered Start: 03-01-2022 take 1 tablet by dianne th once daily Cipro 500 mg Tab 500 mg = 1 tab(s), Oral, Daily, Take 1 tablet the day before the procedure and 1 tablet after the procedure, # 2 tab(s), Refills(s) 0, [id number], cm, 09/01/21 10:42:00 EST, Height/Length Dosing, 78, kg, 09/01/21 10:42:00 EST, W... Start Date: 03/01/22 Status: Ordered Start: 12-07-2021 take 1 tablet by dianne once daily Cipro 500 mg Tab 500 mg = 1 tab(s), Oral, Daily, Take 1 tablet the day before procedure and 1 tablet after the procedure, # 2 tab(s), Refills(s) 0, Pharmacy: [id number], 178, cm, 09/01/21 10:42:00 EST, Height/Length Dosing, 78, kg, 09/01/21 10:42:00 EST, We... Start Date: 12/07/21 Status: Ordered Fish Oil-DHA-EPA 1,200-144-216 mg cap (1 source) Fish Oil-DHA-EPA 1,200-144-216 mg cap Take by mouth once daily. 0 Active Comment on above: Take by mouth once d aily. ipratropium bromide 0.042 mg/actuat metered dose nasal spray (20 sources) Anticholinergic take 2 spray(s) nasal route three times daily as needed Ipratropium [place] 0.06 % 2 sprays in each nostril Nasally Three times a day Not-Taking/PRN take 2 spray(s) nasa l route three times daily Ipratropium [place] 0.06 % 2 sprays in e ach nostril Nasally Three times a day Not-Taking ondansetron 4 mg disintegrating oral tablet (2 sources) Serotonin-3 Receptor Antagonist Start: 08-19-2021 End: 04-22-2023 take 4 mg by mouth every eight hours Ondansetron Discontinued 4 MG PO Q8H 9 August 18, 2021 11:00pm April 22, 2023 10:06am 24 hr oxybutynin chloride 10 mg extended release oral tablet (20 sources) Cholinergic Muscarinic Antagonist take 1 tablet by mouth every twenty-four hours oxyBUTYnin Chloride ER 10 MG 1 tablet Orally Once a day Not-Taking/PRN Psyllium (20 sources) Psyllium Not-Taking/PRN Psyllium Not-Bobby ing Psyllium Active rosuvastatin calcium 10 mg oral tablet (17 sources) HMG-CoA Reductase Inhibitor Start: 10-10-2023 End: 10-10-2023 Rosuvastatin (CRESTOR) tablet 40 mg Start: 06-07-2023 take 1 tablet by dianne th every twenty-four hours Rosuvastatin Calcium 40 MG 1 tablet Orally Once a day for 30 days May, Active vitamin b12 0.1 mg oral tablet (1 source) Vitamin B12 take 2 tablets by mouth once daily cyanocobalamin (VITAMIN B-12) 100 mcg tab Take 200 mcg by mouth once daily. 0 Active Comment on above: Take 200 mcg by mout h once daily. Zinc (4 sources) take 1 tablet by mouth once daily Zinc 50 MG 1 tablet Orally Once a day Not-Taking zinc gluconate 50 mg oral tablet (20 sources) take 1 tablet by mouth every twenty-four hours Zinc 50 MG 1 tablet Orally Once a day Not-Taking/PRN Problems Active Problems Problem Classification Problem Date Documented Date Episodic/Chronic Acute myocardial infarction (10 sources) Myocardial infarction; Translations: [Non-ST elevation (NSTEMI) myocardial infarction] Onset: 04-22-20 23 04-22-2023 Chronic Allergic reactions (20 sources) Asteatotic eczema; Translations: [Other specified dermatitis] Episodic Cancer of bladder (20 sources) Malignant tumor of urinary bladder; Translations: [Malignant neoplasm of bladder, unspecified] Onset: 01-09-20 Chronic Cancer of bladder (20 sources) Personal history of malignant neoplasm of bladder; Translations: [H/O: malignant neoplasm] Onset: 11-12-19 Episodic Cancer of colon (18 sources) Malignant tumor of colon; Translations: [Malignant neoplasm of colon, unspecified site] Onset: 12-17-1904-22-2023 Chronic Cancer of colon (7 sources) Personal history of other malignant neoplasm [...] Complications of surgical procedures or medical care (5 sources) Postprocedural intestinal obstruction, unspecified as to partial versus complete; 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] Episodic Conditions associated with dizziness or vertigo (20 sources) Dizziness; Translations: [Dizziness and giddiness] Episodic Congestive heart failure; nonhypertensive (19 sources) Acute systolic heart failure; Translations: [Acute systolic (congestive) heart failure] Chronic Coronary atherosclerosis and other heart disease (20 sources) Coronary arteriosclerosis; Translations: [Coronary atherosclerosis of unspecified type of vessel, [place] or graft] Onset: 06-25-20 Chronic Coronary atherosclerosis and other heart disease (20 sources) Stented coronary artery; Translations: [Presence of coronary angioplasty implant and graft] Onset: 06-25-2011-20-2023 Episodic Deficiency and other anemia (20 sources) [...] Translations: [ENCOUNTER FOR IMMUNIZATION] Onset: 01-23-20 Episodic Intestinal obstruction without hernia (2 sources) Stricture of colon; Translations: [Other intestinal obstruction unspecified as to partial versus complete obstruction] Onset: 09-30-20 19 09-30-2019 Episodic Mycoses (2 sources) Tinea pedis Episodic [...] 01-10-2003-28-2020 Chronic Other aftercare (2 sources) Other longterm (current) drug therapy; Translations: [OTH GROUP HOME CURRENT DRUG THERAPY] Onset: 01-23-20 Episodic Other and ill-defined heart disease (4 sources) Left ventricular cardiac dysfunction; Translations: [Heart disease, unspecified] Chronic Other and ill-defined heart disease (1 source) Heart disease, unspecified; Translations: [Heart disease, unspecified] Onset: 06-25-20 Chronic Other and ill-defined heart disease (1 source) Heart disease; Translations: [Heart disease, unspecified] Onset: 10-24-1910-24-2023 Chronic Other and unspecified benign neoplasm (1 [...] system and abdomen] Episodic Other gastrointestinal disorders (6 sources) Constipation, unspecified; Translations: [CONSTIPATION UNSPECIFIED] Onset: 11-03-19 Episodic Other gastrointestinal disorders (2 sources) Diarrhea; Translations: [Diarrhea, unspecified] 08-19-2021 Episodic Other gastrointestinal disorders (1 source) Diarrhea, unspecified Episodic Other gastrointestinal disorders (2 sources) Change in bowel habit Episodic Other gastrointestinal disorders (3 sources) Constipation; Translations: [Constipation, unspecified] Episodic Other male [...] of digestive tract] Episodic Residual codes; unclassified (8 sources) Acquired absence of other specified parts of digestive tract; Translations: [ACQ ABSENCE OTH PART DIGESTV TRACT] Onset: 01-23-20 Episodic Residual codes; unclassified (2 sources) Never smoked any substance; Translations: [Other specified health status] Onset: 11-20-19 24 11-20-2023 Episodic Skin and subcutaneous tissue infections (2 sources) Carbuncle of buttock; Translations: [Pilonidal cyst without abscess] Episodic Spondylosis; intervertebral disc disorders; other back problems (20 sources) Lumbar spondylosis; Translations: [Inflammation of sacroiliac joint] Onset: 01-10-20 23 03-28-2020 Chronic Unclassified (10 sources) Asymptomatic microscopic hematuria 12-26-2020 Unclassified (10 sources) Body mass index 20-24 - normal 04-26-2020 Unclassified (2 sources) CONTACT W/AND (SUSP) EXPOS COVID-19; Translations: [CONTACT W/AND (SUSP) EXPOS COVID-19] Onset: 04-10-20 Unclassified (1 source) Postprocedural intestinal obstruction, unspecified as to partial versus complete; Translations: [Postprocedural intestinal obstruction, unspecified as to partial versus complete] Onset: 10-23-19 Urinary tract infections (12 sources) Urinary tract infectious disease; Translations: [Urinary tract infection, site not specified] 08-29-2020 Episodic Viral infection (4 sources) COVID-19; Translations: [COVID-19] Onset: 04-09-20 Past or Other Problems Problem Classification Problem Date Documented Da te Episodic/Chronic Abdominal pain (5 sources) Generalized abdominal pain; Translations: [Generalized abdominal pain] Onset: 11-03-2022 Episodic Other diseases of bladder and urethra [...] Never smoked tobacco; Translations: [Never a smoker] Unclassified (1 source) Onset: 11-20-2023 11-20-2023 Results Test Name Value Interpretation Reference Range Facility Consent for Procedure/Surger yon 11-18-2023 Consent for Procedure/Surgery [id number]. 00TIFF [facility] Consent for Procedure/Surger yon 11-15-2023 Consent for Procedure/Surgery [id number]. 00TIFF [facility] Reminderson 11-14-2023 Reminders - From: Lucero Sutherland To: EU - Recalls Dietrich; Cc: Lucero Sutherland; Sent: 11/14/2023 13:20:30 EST Show up: 01/20/2024 13:20:00 EDT Subject: cysto/fish/cytol Due Date/Time: 02/10/2024 13:20:00 EDT Reminder/Recall Patient will be due in February 2024 for 3 month cysto/fishc/ytol [facility] Reminderson 11-13-2023 Reminders - From: Lucero Sutherland To: EU - Recalls Dietrich; Cc: Lucero Sutherland; Sent: 05/21/2023 11:05:08 EDT Show up: 09/20/2023 11:05:00 EST Subject: sched turbt Due Date/Time: 10/07/2023 11:05:00 EST Reminder/Recall 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 He cannot stop ASA/Brilinta for 6 months. He needs sched for TURBT once cleared by Dr. Morgan. l/m on pts home machine.LG Patient sched for 12/05/23 at [facility]. Confirmation mailed to pt.LG [facility] Consultation Noteon 11-12-19 Consultation Note [id number] .00TIFF [facility] Formson 11-08-2023 Forms [id number] .00TIFF Normal [facility] Blood Urea Nitrogenon 2023 Urea nitrogen [Mass/Vol] 19 mg/dL Normal 7-25 [facility] Comment on above: Order Comment: STAT FOR CT Performed By: #### C REAT, BUN #### [facility] [address] enterographyon 10-23-2023 CT enterography [facility] [address] [place] [address] [place] [address] CT Scan Report Signed Patient: Kennedy Kong MR#: [id number] : 1935 Acct:[id number] Age/Sex: 88 / M ADM Date: 10/23/23 Loc: CT Room: Type: [facility] Attending Dr: Zofia Gates MD Copies to: Zofia Gates MD Ordering Provider: Zofia Gates MD Date of Service: 10/23/23 CT/CT enterography: History of bowel resection;Anastomotic stricture of colorect CT enterography TECHNIQUE: Axial imaging with 2-D reconstruction.90 cc of Isovue-300. The CT exam was performed using one or more the following dose reduction techniques: Automated exposure control, adjustment of the MA and/or Kv according to patient size, or use of the iterative reconstruction technique. COMPARISON: None History: History of bowel resection. Anastomotic suture in the colorectal region. History of colon cancer. LIMITATIONS: None LOWER THORAX minor atelectasis. No pleural effusion. No lung base nodule. LIVER: The left hepatic lobe 2 cm cyst. 1 cm posterior lateral right hepatic cyst. Calcified splenic granulomas. 82 mm indeterminate hypodensities of the tip of the right hepatic lobe. Favor tiny cysts. GALLBLADDER: Mild gallbladder hydrops. No calcified stone. No wall thickening. BILE DUCTS: No dilatation SPLEEN: Calcified granulomas of normal size spleen. PANCREAS: The 4 mm oval hypodensity of the body of the pancreas. Consider small cysts. No ductal dilatation. No solid lesion. No peripancreatic abnormality. ADRENAL GLANDS: Unremarkable KIDNEYS:Unremarkable AORTA: No abdominal aortic aneurysm identified. RETROPERITONEUM: No para-aortic surgical clips. No retroperitoneal lymphadenopathy. MESENTERY:Unremarkabl e SMALL BOWEL: Moderate distention of multiple small bowel loops with small fluid levels. Adequate enhancement of the small bowel. No significant small bowel wall thickening. No intraluminal nodule. No obvious stricture. No transition point. APPENDIX: The appendix is normal. COLON: Colorectal anastomosis. Moderate stool proximal to the anastomosis. A moderate stool throughout the colon. URINARY BLADDER: A nodular wall thickening of the inferior portion of the urinary bladder extending to the right. This abuts or arises from the prostate gland. This is near the right ureterovesical junction. No hydroureter or hydronephrosis. REPRODUCTIVE SYSTEM: Moderate prostatomegaly. PNEUMOPERITONEUM: None PERITONEAL FLUID:None BONY STRUCTURES: Extensive lower lumbar degeneration. ABDOMINAL WALL: Unremarkable CT/CT enterography IMPRESSION: Adequate distended fluid-filled small bowel loops with adequate bowel wall enhancement without concerning lesion or stricture. Moderate stool throughout the colon down to level of the colorectal anastomosis. No colon wall thickening. No adjacent inflammation. Numerous hepatic hypodensities likely representing multiple small cysts. 4 mm oval hypodensity of the pancreatic body likely representing tiny cyst. Nodular wall irregularity of the inferior portion of the urinary bladder extending to the right. Component of debris may be present. There may be presence of a mural lesion versus extrinsic compression from prominent prostate gland. May consider urology consultation. CT urogram may be due to be obtained to further assess. Prostamegaly. Impression dictated by: Randal Villarreal M.D.10/23/2023 4:06 PM Dictation Location: [place] [address] Transcribed By: [facility] 10/23/23 1606 Dictated By: Randal Villarreal DO 10/23/23 1549 Signed By: 10/23/23 1606 Normal [facility] Calprotectin, Fecalon 2023 Calprotectin, Fecal 35 Normal 0-120 [facility] Comment on above: Result Comment: Conc entration Interpretation Follow-Up < 5 - 50 ug/g Normal None >50 -120 ug/g Borderline Re-evaluate in 4-6 weeks >120 ug/g Abnormal Repeat as clinically indicated Performed at: - [facility] [id number] Columnist: Danielle Carrington MD, Phone: [phone] PERFORMED BY: [facility] [address] [place] [address] PATHOLOGIST MENU PLANNER JAMIE MADISON M.D. Performed By: #### H S TROP, LIPID, CBC, BMP #### [facility] [address] [place] [address] [place] Creatinineon 10-23-2023 Creatinine [Mass/Vol] 1.05 mg/dL Normal 0.70-1.[address] [facility] Comment on above: Order Comment: STAT FOR CT Performed By: #### H S TROP, LIPID, CBC, BMP #### [place] [id number] [place] GFR/1.73 sq M.predicted MDRD (S/P/Bld) [Vol rate/Area] mL/min/{1.73_m2} Normal [facility] Comment on above: Order Comment: STAT FOR CT Result Comment: PERF ORMED BY: [place] [address] PATHOLOGIST MENU PLANNER JAMIE MADISON M.D. Performed By: #### H S TROP, LIPID, CBC, BMP #### [place] [id number] [facility] Creatinine [Mass/volume] in Serum or PlasmaOrdered By: Impat Asapat on 10-23-2023 Creatinine [Mass/Vol] 1.05 mg/dL 0.70-1.[address] [facility] No Panel InformationOrdered By: Imad Asaad on 10-23-2023 Estimated GFR (CKD-EPI) > 60.0 mL/Min [facility] Creatinine Clearance (Chem N/A [facility] Urea nitrogen [Mass/volume] in Serum or PlasmaOrdered By: Imad Asaad on 10-23-2023 Urea nitrogen [Mass/Vol] 19 mg/dL 7 [facility] LACTATE, BLOODOrdered By: Sa ceasar Dorsey on 10-10-2023 Interpretation and review of laboratory results Normal [facility] Lactate [Moles/Vol] 1.6 mmol/L 0.5 - 1. 6 mmol/L [facility] LT BLUE TOP TUBEon [facility] CBC AND ELECTRONIC DIFFon Basophils (Bld) [#/Vol] K/uL 0.00 - 0.09 K/uL [facility] Basophils/100 WBC (Bld) 0.2 % [facility] Differential cell count method Nom (Bld) Electronic Differential [facility] Eosinophils (Bld) [#/Vol] 0.04 10*3/uL 0.00 - 0.48 K/uL [facility] Eosinophils/100 WBC (Bld) 0.4 % [facility] Erythrocyte distribution width (RBC) [Ratio] 13.9 % 10.9 - 14.3 % [facility] Hematocrit (Bld) [Volume fraction] 44.9 % 39.6 - 48.8 % [facility] Hemoglobin (Bld) [Mass/Vol] 14.4 g/dL 13.4 - 16.8 g/dL [facility] Immature granulocytes (Bld) [#/Vol] K/uL NINF - 0.07 K/uL [facility] Immature granulocytes/100 WBC (Bld) 0.3 % [facility] Interpretation and review of laboratory results Abnormal [facility] Lymphocytes (Bld) [#/Vol] 0.88 10*3/uL 0.83 - 3.57 K/uL [facility] Lymphocytes/100 WBC (Bld) 9.4 % [facility] MCH (RBC) [Entitic mass] 29.7 pg 26.1 - 33.3 pg [facility] MCHC (RBC) [Mass/Vol] 32.1 g/dL 31.9 - 36.5 g/dL [facility] MCV (RBC) [Entitic vol] 92.6 fL 79.0 - 94.5 fL [facility] Monocytes (Bld) [#/Vol] 1.08 10*3/uL High 0.24 - 0.93 K/uL [facility] Monocytes/100 WBC (Bld) 11.5 % [facility] Neutrophils (Bld) [#/Vol] 7.35 10*3/uL High 1.57 - 6.19 K/uL [facility] Nucleated RBC/100 WBC (Bld) [Ratio] 0.0 % [facility] Platelet mean volume (Bld) [Entitic vol] 8.8 fL 8.7 - 12.3 fL [facility] Platelets (Bld) [#/Vol] 206 10*3/uL 146 - 337 K/uL [facility] RBC (Bld) [#/Vol] 4.85 10*6/uL [facility] Segmented neutrophils/100 WBC (Bld) 78.2 % [facility] WBC (Bld) [#/Vol] 9.40 10*3/uL 3.73 - 10.10 K/uL [facility] CHEM 6 (LYTES, BUN CREA)on 12-10-2022 Anion gap [Moles/Vol] 11 mmol/L 7 - 17 mmol/L [facility] Chloride [Moles/Vol] 104 mmol/L 98 - 10 8 mmol/L [facility] CO2 [Moles/Vol] 26 mmol/L 21 - 31 mmol/L [facility] Creatinine [Mass/Vol] 0.97 mg/dL 0.70 - 1.30 mg/dL [facility] eGFR, CKD-EPI, Male 77 - PINF [facility] Comment on above: Reported eGFR is bas ed on the CKD-EPI 2020 equation using creatinine, age, and sex. Potassium [Moles/Vol] 4.0 mmol/L 3.5 - 5.0 mmol/L [facility] Sodium [Moles/Vol] 137 mmol/L 135 - 145 mmol/L [facility] Urea nitrogen [Mass/Vol] 23 mg/dL 7 - 25 mg/dL [facility] Urea nitrogen/Creatinine [Mass ratio] 24 mg/mg [facility] GLUCOSEon 10-09-2023 Glucose [Mass/Vol] 123 mg/dL High 70 - 99 mg/dL [facility] HEPATIC FUNCTION PANELon Albumin [Mass/Vol] 4.4 g/dL 3.5 - 5.0 g/dL [facility] ALP [Catalytic activity/Vol] 57 U/L 32 - 126 U/L [facility] ALT [Catalytic activity/Vol] 8 U/L Low 10 - 52 U/L [facility] AST [Catalytic activity/Vol] 15 U/L 10 - 39 U/L [facility] Bilirubin [Mass/Vol] 0.7 mg/dL NINF - 1.5 mg/dL [facility] Bilirubin.direct [Mass/Vol] 0.2 mg/dL NINF - 0.3 mg/dL [facility] Protein [Mass/Vol] 7.3 g/dL 6.4 - 8.3 g/dL [facility] LIPASEon 10-09-2023 Interpretation and review of laboratory results Normal [facility] Lipase [Catalytic activity/Vol] 12 U/L 11 - 82 U/L [facility] No Panel Informationon 10-09 Interpretation and review of laboratory results Abnormal [facility] Echocardiogramon 06-25-[address], [address] [place] [address] TRANSTHORACIC ECHOCARDIOGRAM REPORT Patient Name: KENNEDY KONG Letty Physician: [id number] Hannah Abraham MD Study Date: 06/25/2023 Referring ADRIEL MORGAN Physician: MRN/PID: [id number] PCP: Nestor Estrella Accession/Order#: [id number] [facility] Location: Date of : 1935 Fellow: Gender: M Nurse: Admit Date: Field Operations Supervisor: Flores Love RDCS, T Height: 177.80 cm CC Report to: Weight: 83.92 kg Study Type: Echocardiogram BSA: 2.02 m2 Blood Pressure: 110 /64 mmHg Diagnosis/ICD: 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; I51.9-Heart disease, unspecified; 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) Indication: Hyperlipidemia, RI and PTCA-04/22/2023 Procedure/CPT: Echo Complete w Full Doppler-[id number] Study Detail: The following Echo studies were [...] mmHg PIEDV: 1.64 m/s PADP: 13.8 mmHg [id number] Hannah Abraham MD Electronically signed on 06/25/2023 at 2:13:32 PM Final Normal [facility] UroVysion Fish and Urine Cyt o ([facility])on 05-17-2023 UVFISH & UC Diagnosis Info Invalid Interpretation Code [facility] Comment on above: Result Comment: A:Ur ine,Urine:Voided [...] correlated with cytology and cystoscopy results.* CPT 44923, 17542. Microscopic Notes - Microscopic Notes - Abnormal cells 9p21 deletions: 34 Abnormal cells aneploid events: 86 Total cells analyzed: 100 Hematuria: Gross Description Site ID:A color Yellow fixative Alcohol Received 70 mls of clearish yellow fluid with the patient's name and, Urine on the vial. Electronically signed by : on: 05/17/2023 11:19:51 Performed By: #### 1 [id number] ####[facility] [address] [place] [address] Consent for Procedure/Surger yon 05-16-2023 Consent for Procedure/Surgery [id number] .00CD:127 Normal [facility] Formson 05-16-2023 Forms [id number] .00CD:127 Normal [facility] Consent for Procedure/Surger yon 05-14-2023 Consent for Procedure/Surgery [id number] .00CD:127 Normal [facility] Consent for Treatmenton 04-21 Consent for Treatment [id number] .00CD:127 Normal [facility] IntraOperative Documentson 0 05-14-2023 IntraOperative Documents [id number] .00CD:127 Normal [facility] Main OR Intraoperative Recor don 05-14-2023 Main OR Intraoperative Record IntraOp Document Type FTURO Summary Primary Physician: Kylie DIETRICH MD Finalized Date/Time: 05/14/23 14:52:05 Pt. Name: KENNEDY KONG Jeremi Ferreira/Sex: 1935 Male Med Rec #: [id number] Physician: Kylie DIETRICH MD Financial #: [id number] Pt. Type: O Room/Bed: / Admit/Disch: 05/14/23 13:13:51 - Institution: Case Times FTURO Entry 1 Patient Times In Room 05/14/23 14:27:00 Out Room 05/14/23 14:48:00 Procedure Times Start 05/14/23 14:32:00 Stop 05/14/23 14:47:00 Anesthesia Times Last Modified By: Emilee ANDERSON, KANNANOR, Lyric 05/14/23 14:51:42 Case Attendance FTURO Entry 1 Entry 2 Entry 3 Case Attendee Kylie DIETRICH MD RN, CNOR, Tammy POLK, Chrystal Gunter Role Performed Surgeon - Primary Copy And Print Associate - Primary Scrub - Primary Time In 05/14/23 14:27:00 05/14/23 14:27:00 05/14/23 14:27:00 Time Out 05/14/23 14:48:00 05/14/23 14:48:00 05/14/23 14:48:00 Procedure CYSTOSCOPY LOCAL(.) CYSTOSCOPY LOCAL(.) CYSTOSCOPY LOCAL(.) Comments Last Modified By: Emilee RN, CNOR, Emilee RN, CNOR, Emilee ANDERSON, KANNANOR, Lyric 05/14/23 Lyric 05/14/23 Lyric 05/14/23 14:51:43 14:51:43 14:51:43 Surgical Procedures FTURO Entry 1 Procedure Description Procedure CYSTOSCOPY LOCAL Modifiers . Surgeon Description cysto Primary Procedure Yes Primary Surgeon Kylie DIETRICH MD Start 05/14/23 14:32:00 Stop 05/14/23 14:47:00 Anesthesia Type Local Surgical Service Urology Wound Class 2 - Clean-Contaminated Last Modified By: PENNY Hebert RN, Ruthann 05/14/23 14:51:45 General Case Data FTURO Pre-Care Text: Classifies surgical wound, implements aseptic technique, initiates traffic control Entry 1 Case Information OR URO 1 FT Case Level None Wound Class 2 - Clean-Contaminated Specialty Urology Preop Diagnosis HX BLADDER CANCER Postop Same As Preop No Postop Diagnosis HX BLADDER CANCER, Outcomes Met? Yes tumors in bladder at bladder neck Last Modified By: PENNY Hebert RN, Ruthann 05/14/23 14:51:18 Post-Care Text: The patient is [...] DIETRICH MD, Verified (If Participants Emilee ANDERSON, KANNANOR, Applicable) Tammy Gunter CST, Kimberly A Time Out Complete 05/14/23 14:29:00 Allergies Reviewed? [...] PENNY Hebert RN, Ruthann 05/14/23 14:52 Normal [facility] Main OR Preoperative Recordo n 05-14-2023 Main OR Preoperative Record Holding Area Document Type FTURO Summary Primary Physician: Kylie DIETRICH MD Finalized Date/Time: 05/14/23 14:28:27 Pt. Name: KENNEDY KONG Jeremi HorowitzB./Sex: 1935 Male Med Rec #: [id number] Physician: Kylie DIETRICH MD Financial #: [id number] Pt. Type: O Room/Bed: / Admit/Disch: 05/14/23 [...] Complaints of Pain: No Skin Integrity Intact, [place], Warm, & Dry Vitals - EU Blood Pressure 128/60 Pulse 73 bpm Respirations 20 br/min SPO2 96 % RN Reviewed Yes Last Modified By: PENNY Hebert RN, Ruthann 05/14/23 14:28:24 General Comments: Temp 98.1 Finalized By: PENNY Hebert RN, Ruthann Document Signatures Signed By: Marilee Vaughn LPN 05/14/23 14:03 PENNY Hebert RN, Ruthann 05/14/23 14:28 Normal [facility] Operative Reporton Operative Report Patient: KENNEDY KONG Age: 87 years Sex: Male : 1935 Associated Diagnoses: None Author: Kylie DIETRICH MD Procedure Operative Information Details: Date/ Time: 05/14/2023 14:41:00. Pre-Op Dx: Hx of Bladder CA - Z85.51, Bladder Mass - D41.4. Post-Op Dx: Same, Penile and bulbar urethral stenosis. Anesthesia Type: Local. Procedure: Local Cystoscopy. Complications: None. Risks/Benefits/Inform ed Consent: Surgical risks, benefits, details of the [...] resection of bladder tumors under general.. Normal [facility] Comment on above: Result Comment: Elec tronically Signed By: KARLO CHOI, Kylie Restrepo\.br\Date and Time Signed: 05/14/23 14:43 EDT Outpatient Surgery Discharge Instructionon 05-14-2023 Outpatient Surgery Discharge Instruction [id number] .00CD:127 Normal [facility] Progress Note-Physicianon Progress Note-Physician Patient: KENNEDY KONG [...] obstruction/lower urinary tract symptoms / SNOMED CT 0330320297 / Confirmed History of ulcerative colitis / SNOMED CT 187372443 / Confirmed Trigeminal neuralgia of right side of face / SNOMED CT 08377324 / Confirmed Hyperlipidemia / SNOMED CT 00529992 / Confirmed Chronic venous insufficiency / SNOMED CT 99813772 / Confirmed Lumbar spondylosis / SNOMED CT 309000891 / Confirmed Right hip pain / SNOMED CT 81671298 / Confirmed Chronic kidney disease / SNOMED CT 8559754704 / Confirmed Gross hematuria / SNOMED CT 435879229 / Confirmed Osteoarthritis of right hip / SNOMED CT 6221065431 / Confirmed Urinary incontinence / SNOMED CT 1714588515 / Confirmed Renal cyst / SNOMED CT 6124248492 / Confirmed Hydrocele / SNOMED CT 7689365194 / Confirmed BMI 24.0-24.9, adult / SNOMED CT 5430656216 / Confirmed Bladder tumor / SNOMED CT 863830 / Confirmed Bladder cancer / SNOMED CT 3849649364 / Confirmed Asymptomatic microscopic hematuria / SNOMED CT 3694970865 / Confirmed UTI (urinary tract infection) / SNOMED CT 886271181 / Confirmed 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 hydrocele: Resolved. Family History: Colon cancer Father () Procedure history: Endoscopic destruction of bladder tumor by laser EVOLVE ([id number]) on 12/13/2020 at 85 Years. TURBT - with left ureteroscopy and left stent placement ([id number]) on 05/26/2020 at 84 Years. Hydrocelectomy (18445392) in 2001 at 67 Years. colon resection. colonoscopy. Cataract ([id number]). Comments: 10/17/2010 12:31 CESARIO - Martha Mazariegos [...] he then will require more BCG. Normal [facility] Comment on above: Result Comment: Elec tronically Signed By: KARLO CHOI, Kylie Restrepo\.br\Date and Time Signed: 05/14/23 14:46 EDT Ambulatory Visit Summaryon 0 05-10-2023 Ambulatory Visit Summary KENNEDY KONG :1935 Visit Date:05/10/2023 Ambulatory Visit Instructions Your Diagnosis Bladder cancer Your Care Team Attending Physician - Kylie [...] treatment for. colon ca resection hydrocele Normal [facility] UroVysion Fish and Urine Cyt o ([facility])on 05-10-2023 [facility] Method of Extraction Voided Normal [facility] Comment on above: Performed By: #### 1 [id number] ####[facility] [address] [place] [address] [facility] Number of Jars 1 Invalid Interpretation Code [facility] Comment on above: Performed By: #### 1 [id number] ####[facility] [address] [place] [address] [facility] Specimen Urine Normal [facility] Comment on above: Performed By: #### 1 [id number] ####[facility] [address] [place] [address] [facility] Type of Service Technical Only Normal [facility] Comment on above: Performed By: #### 1 [id number] ####[facility] [address] [place] [address] Office Visit (Cardiology)on 05-02-2023 Follow-up visit Diagnoses/Problems [...] Aminotransferase, Serum; Status:Active - Retrospective Authorization; Requested for:99Kgt3406; AST; Status:Active - Retrospective Authorization; Requested for:49Tbv5747; Complete Blood Count; Status:Active - Retrospective Authorization; Requested for:39Itj8803; Echocardiogram; Status:Hold For - Scheduling,Retrospect phillip Authorization; Requested for:20Awy6254; Lipid Panel; Status:Active - Retrospective Authorization; Requested for:29Hob5761; SocHx: Never a smoker Tobacco Use Screening; Status:Complete; Done: 32Hrs6251 Patient Instructions Please bring all medicines, vitamins, [...] gentleman who returns following recent non-ST elevation RI due to occluded obtuse marginal branch with primary revascularization with drug-eluting stent and is doing well. He has mild LV dysfunction, No significant coronary disease, ejection fraction of 45%. 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 Vitals Vital Signs Recorded: 55Eqo4081 11:57AM Heart Rate60, L Radial Tjzxxadh429, LUE, Sitting Camxmikyn54, LUE, Sitting Height5 ft 10 in Srthgd101 lb BMI Ktczmpwjhy68.54 kg/m2 BSA Calculated2.02 Tobacco Useb) No PHQ-2 [...] Screening.on 023 Adult depression screening assessment No [facility] 250 DO Work Phone: Fall risk assessment a) No falls within the last year [facility] [employer] 250 DO Work Phone: Tobacco use status [facility] b) No [facility] [employer] 250 DO Work Phone: Basic Metabolic Panelon 07-0 Anion gap [Moles/Vol] 10.5 mmol/L Normal 6.0-15.0 [facility] Comment on above: Performed By: #### H S TROP, LIPID, CBC, BMP #### [facility] [address] [place] [id number] [place] Calcium [Mass/Vol] 8.7 mg/dL Normal 8.6-10.3 [facility] Comment on above: Performed By: #### H S TROP, LIPID, CBC, BMP #### [facility] [address] [place] [address] [place] Chloride [Moles/Vol] 106 mmol/L Normal 98-107 [facility] Comment on above: Performed By: #### H S TROP, LIPID, CBC, BMP #### [facility] [address] [place] [address] [place] CO2 [Moles/Vol] 25.0 mmol/L Normal 21.0-31.[address] [facility] Comment on above: Performed By: #### H S TROP, LIPID, CBC, BMP #### [facility] [address] [place] [address] [place] Creatinine [Mass/Vol] 0.99 mg/dL Normal 0.70-1.[address] [facility] Comment on above: Performed By: #### H S TROP, LIPID, CBC, BMP #### [facility] [address] [place] [address] [place] Creatinine Clr Calc Pharmacy 55.30 [facility] Comment on above: Performed By: #### H S TROP, LIPID, CBC, BMP #### [facility] [address] [place] [address] [place] GFR/1.73 sq M.predicted MDRD (S/P/Bld) [Vol rate/Area] mL/min/{1.73_m2} [facility] Comment on above: Performed By: #### H S TROP, LIPID, CBC, BMP #### [facility] [address] Glucose [Mass/Vol] 110 mg/dL High 70-100 [facility] Comment on above: Result Comment: [facility] Glucose Reference Range is dependent on time and content of last meal. Glucose of more than 200 mg/dL in a nonstressed, ambulatory subject supports the diagnosis of Diabetes Mellitus. ADA recommended reference range Performed By: #### H S TROP, LIPID, CBC, BMP #### [facility] [address] Potassium [Moles/Vol] 4.5 mmol/L Normal 3.5-5.[address] [facility] Comment on above: Performed By: #### H S TROP, LIPID, CBC, BMP #### [facility] [address] [place] [address] [place] Sodium [Moles/Vol] 137 mmol/L Normal 136-145 [facility] Comment on above: Performed By: #### H S TROP, LIPID, CBC, BMP #### [facility] [address] [place] [address] [place] Urea nitrogen [Mass/Vol] 24 mg/dL Normal 7-25 [facility] Comment on above: Performed By: #### H S TROP, LIPID, CBC, BMP #### [facility] [address] [place] [address] [place] Basophils Auto (Bld) [#/Vol] Ordered By: Ko Morgan on 04-23-2023 Basophils (Bld) [#/Vol] 0.1 10*3/uL 0.0-0.2 [facility] Basophils/100 WBC Auto (Bld) Ordered By: Ko Morgan on 04-23-2023 Basophils/100 WBC (Bld) 0.7 % . F [facility] Calcium [Mass/volume] in Ser um or PlasmaOrdered By: Ko Morgan on 04-23-2023 Calcium [Mass/Vol] 8.7 mg/dL 8.6-10.3 [facility] Carbon dioxide, total [Moles /volume] in Serum or PlasmaOrdered By: Ko Morgan on 04-23-2023 CO2 [Moles/Vol] 25.0 mmol/L 21.0-31.[address] [facility] Chloride [Moles/volume] in S aimee or PlasmaOrdered By: Ko Morgan on 04-23-2023 Chloride [Moles/Vol] 106 mmol/L 98-107 [facility] Cholesterol [Mass/volume] in Serum or PlasmaOrdered By: Ko Morgan on 04-23-2023 Cholesterol [Mass/Vol] 148 mg/dL 140-200 [facility] Comment on above: Chol less than 200 m g/dl low riskChol 201-239 mg/dl borderline riskChol 240 mg/dl and greater high risk Cholesterol in LDL Calc [Mas s/Vol]Ordered By: Ko Morgan on 04-23-2023 Cholesterol in LDL [Mass/Vol] 73 mg/dL 0-100 [facility] Comment on above: LDL ATP III CLASSIFI CATIONLDL less than 100 mg/dL OptimalLDL 100-129 mg/dL Near or above optimalLDL 130-159 mg/dL Borderline highLDL 160-189 mg/dL HighLDL greater than 189 mg/dL Very high Cholesterol in VLDL Calc [Ma ss/Vol]Ordered By: Ko Morgan on 04-23-2023 Cholesterol in VLDL [Mass/Vol] 19 mg/dL [facility] Complete Blood Count Auto Di ffon 04-23-2023 Basophils (Bld) [#/Vol] 0.1 10*3/uL Normal 0.0-0.2 [facility] Comment on above: Result Comment: PERF ORMED BY: [place] [address] PATHOLOGIST MENU PLANNER JAMIE MADISON M.D. Performed By: #### H S TROP, LIPID, CBC, BMP #### [address] Basophils/100 WBC (Bld) 0.7 % Normal . [facility] Comment on above: Performed By: #### H S TROP, LIPID, CBC, BMP #### [address] Eosinophils (Bld) [#/Vol] 0.1 10*3/uL Normal 0.0-0.45 [facility] Comment on above: Performed By: #### H S TROP, LIPID, CBC, BMP #### [address] Eosinophils/100 WBC (Bld) 1.5 % Normal . [facility] Comment on above: Performed By: #### H S TROP, LIPID, CBC, BMP #### [address] Erythrocyte distribution width (RBC) [Ratio] 13.6 % Normal 12.0-14.8 [facility] Comment on above: Performed By: #### H S TROP, LIPID, CBC, BMP #### [address] Hematocrit (Bld) [Volume fraction] 40.6 % Normal 38.8-50.0 [facility] Comment on above: Performed By: #### H S TROP, LIPID, CBC, BMP #### [address] Hemoglobin (Bld) [Mass/Vol] 13.4 g/dL Normal 13.0-17.0 [facility] Comment on above: Performed By: #### H S TROP, LIPID, CBC, BMP #### [address] Lymphocytes (Bld) [#/Vol] 0.9 10*3/uL Low 1.00-4.8 [facility] Comment on above: Performed By: #### H S TROP, LIPID, CBC, BMP #### [address] Lymphocytes/100 WBC (Bld) 10.5 % Normal . [facility] Comment on above: Performed By: #### H S TROP, LIPID, CBC, BMP #### [address] MCH (RBC) [Entitic mass] 29.7 pg Normal 27.5-35.2 [facility] Comment on above: Performed By: #### H S TROP, LIPID, CBC, BMP #### [address] MCV (RBC) [Entitic vol] 89.8 fL Normal 83.5-101 F [facility] Comment on above: Performed By: #### H S TROP, LIPID, CBC, BMP #### [address] Mean Corpuscular HGB Conc 33.1 g/dL Normal 32.5-35.6 [facility] Comment on above: Performed By: #### H S TROP, LIPID, CBC, BMP #### [address] Monocytes (Bld) [#/Vol] 1.1 10*3/uL High 0.0-0.8 [facility] Comment on above: Performed By: #### H S TROP, LIPID, CBC, BMP #### [address] Monocytes/100 WBC (Bld) 14.1 % Normal . F [facility] Comment on above: Performed By: #### H S TROP, LIPID, CBC, BMP #### [address] Neutrophils (Bld) [#/Vol] 5.9 10*3/uL Normal 1.8-7.7 [facility] Comment on above: Performed By: #### H S TROP, LIPID, CBC, BMP #### [address] [address] [place] Neutrophils/100 WBC (Bld) 73.2 % Normal . [facility] Comment on above: Performed By: #### H S TROP, LIPID, CBC, BMP #### [facility] [address] NRBC% 0.1 /100{WBC} Normal 0-0.5 [facility] Comment on above: Performed By: #### H S TROP, LIPID, CBC, BMP #### [facility] [address] [place] [address] Platelet mean volume (Bld) [Entitic vol] 6.8 fL Normal 6.6-10.1 [facility] Comment on above: Performed By: #### H S TROP, LIPID, CBC, BMP #### [address] Platelets (Bld) [#/Vol] 215 10*3/uL Normal 150-450 [facility] Comment on above: Performed By: #### H S TROP, LIPID, CBC, BMP #### [address] RBC (Bld) [#/Vol] 4.52 10*6/uL Normal 3.90-5.60 [facility] Comment on above: Performed By: #### H S TROP, LIPID, CBC, BMP #### [address] WBC (Bld) [#/Vol] 8.1 10*3/uL Normal 4.1-10.5 [facility] Comment on above: Performed By: #### H S TROP, LIPID, CBC, BMP #### [facility] [address] [place] [address] Creatinine [Mass/volume] in Serum or PlasmaOrdered By: Ko Morgan on 04-23-2023 Creatinine [Mass/Vol] 0.99 mg/dL 0.70-1.[address] [facility] ECG 12 lead ECGon 04-23-2023 ECG 12 lead ECG [facility] [address] [place] [address] [place] [address] Electrocardiograph Report Signed Patient: Kennedy Kong MR#: [id number] 1435 : 1935 Acct:[id number] Age/Sex: 87 / M ADM Date: 04/22/23 Loc: Room: [address] [place] [address] Type: ADM IN Attending Dr: Kiki Motta [...] consider inferior injury or acute infarct ACUTE RI / STEMI Abnormal ECG No previous ECGs available Confirmed by RANDAL SRIVASTAVA DO ([id number]) on 04/23/2023 9:23:52 AM Referred By: Electronically Signed By:RANDAL SRIVASTAVA DO Transcribed By: MUS Signed By Randal Srivastava DO 04/23 Normal [facility] Eosinophils Auto (Bld) [#/Vo l]Ordered By: Ko Morgan on 04-23-2023 Eosinophils (Bld) [#/Vol] 0.1 10*3/uL 0.0-0.45 [facility] Eosinophils/100 WBC Auto (Bl d)Ordered By: Ko Morgan on 04-23-2023 Eosinophils/100 WBC (Bld) 1.5 % . [facility] Erythrocyte distribution wid th Auto (RBC) [Ratio]Ordered By: Ko Morgan on 04-23-2023 Erythrocyte distribution width (RBC) [Ratio] 13.6 % 12.0-14.8 [facility] Glucose [Mass/volume] in Ser um or PlasmaOrdered By: Ko Morgan on 04-23-2023 Glucose [Mass/Vol] 110 mg/dL 70-100 [facility] Comment on above: ADA recommended refe rence rangeRandom Glucose Reference Range is dependent on time and content of last meal. Glucose of more than 200 mg/dL in a nonstressed, ambulatory subject supports the diagnosis of Diabetes Mellitus. Hematocrit Auto (Bld) [Volum e fraction]Ordered By: Ko Morgan on 04-23-2023 Hematocrit (Bld) [Volume fraction] 40.6 % 38.8-50.0 [facility] Hemoglobin [Mass/volume] in BloodOrdered By: Ko Morgan on 04-23-2023 Hemoglobin (Bld) [Mass/Vol] 13.4 g/dL 13.0-17.0 [facility] Leukocytes [#/volume] correc ramona for nucleated erythrocytes in Blood by Automated counOrdered By: Ko Morgan on 04-23-2023 WBC corrected for nucl RBC Auto (Bld) [#/Vol] 8.1 10*3/uL 4.1-10.5 [facility] Lipid Panelon 04-23-2023 Cholesterol [Mass/Vol] 148 mg/dL Normal 140-200 [facility] Comment on above: Result Comment: Chol less than 200 mg/dl low risk Chol 201-239 mg/dl borderline risk Chol 240 mg/dl and greater high risk Performed By: #### H S TROP, LIPID, CBC, BMP #### [facility] [address] Cholesterol in HDL [Mass/Vol] 56 mg/dL Normal 23-92 [facility] Comment on above: Result Comment: HDL CHOL ATP-III CLASSIFICATION Cardiovascular Risk HDL > or equal to 60 mg/dL LOW HDL < 40 mg/dL HIGH Performed By: #### H S TROP, LIPID, CBC, BMP #### [facility] [address] Cholesterol.total/Drea sterol in HDL [Mass ratio] 2.6 {ratio} Normal <5.0 [facility] Comment on above: Result Comment: PERF ORMED BY: [facility] [address] [place] [address] PATHOLOGIST MENU PLANNER JAMIE MADISON M.D. Performed By: #### H S TROP, LIPID, CBC, BMP #### [facility] [address] LDL Cholesterol,Calculated 73 mg/dL Normal 0-100 [facility] Comment on above: Result Comment: LDL ATP III CLASSIFICATION LDL less than 100 mg/dL Optimal LDL 100-129 mg/dL Near or above optimal LDL 130-159 mg/dL Borderline high LDL 160-189 mg/dL High LDL greater than 189 mg/dL Very high Performed By: #### H S TROP, LIPID, CBC, BMP #### [facility] [address] [place] [address] [place] Triglyceride w/Reflex 97 mg/dL Normal 0-[address] [facility] Comment on above: Result Comment: TRIG ATP III CLASSIFICATION TRIG less than 150 mg/dL Normal TRIG 150-199 mg/dL Borderline high TRIG 200-500 mg/dL High TRIG greater than 500 mg/dL Very high Standard traceable to the Center for Disease Conrtrol and Prevention (CDC) test method. Performed By: #### H S TROP, LIPID, CBC, BMP #### [facility] [address] VLDL CHOLESTEROL 19 mg/dL Normal [facility] Comment on above: Performed By: #### H S TROP, LIPID, CBC, BMP #### [facility] [address] Lymphocytes Auto (Bld) [#/Vo l]Ordered By: Ko Morgan on 04-23-2023 Lymphocytes (Bld) [#/Vol] 0.9 10*3/uL 1.00-4.8 [facility] Lymphocytes/100 WBC Auto (Bl d)Ordered By: Ko Morgan on 04-23-2023 Lymphocytes/100 WBC (Bld) 10.5 % . [facility] MCH Auto (RBC) [Entitic mass ]Ordered By: Ko Morgan on 04-23-2023 MCH (RBC) [Entitic mass] 29.7 pg 27.5-35.2 [facility] MCHC Auto (RBC) [Mass/Vol]Or dered By: Ko Morgan on 04-23-2023 MCHC (RBC) [Mass/Vol] 33.1 g/dL 32.5-35.[address] [facility] MCV Auto (RBC) [Entitic vol] Ordered By: Ko Morgan on 04-23-2023 MCV (RBC) [Entitic vol] 89.8 fL 83.5-101 F [facility] Monocytes Auto (Bld) [#/Vol] Ordered By: Ko Morgan on 04-23-2023 Monocytes (Bld) [#/Vol] 1.1 10*3/uL 0.0-0.8 [facility] Monocytes/100 WBC Auto (Bld) Ordered By: Ko Morgan on 04-23-2023 Monocytes/100 WBC (Bld) 14.1 % . [facility] Neutrophils Auto (Bld) [#/Vo l]Ordered By: Ko Morgan on 04-23-2023 Neutrophils (Bld) [#/Vol] 5.9 10*3/uL 1.8-7.7 [facility] Neutrophils/100 WBC Auto (Bl d)Ordered By: Ko Morgan on 04-23-2023 Neutrophils/100 WBC (Bld) 73.2 % . [facility] No Panel InformationOrdered By: Ko Mogran on 04-23-2023 Estimated GFR (CKD-EPI) > 60.0 mL/Min [facility] Creatinine Clearance (Chem 55.30 [facility] Nucleated erythrocytes [Pres ence] in Blood by Automated countOrdered By: Ko Morgan on 04-23-2023 Nucleated RBC Auto Ql (Bld) 0.1 /100{WBC} 0-0.5 [facility] Platelet mean volume Auto (B ld) [Entitic vol]Ordered By: Ko Morgan on 04-23-2023 Platelet mean volume (Bld) [Entitic vol] 6.8 fL 6.6-10.1 [facility] Platelets Auto (Bld) [#/Vol] Ordered By: Ko Morgan on 04-23-2023 Platelets (Bld) [#/Vol] 215 10*3/uL 150-450 [facility] Potassium [Moles/volume] in Serum or PlasmaOrdered By: Ko Morgan on 04-23-2023 Potassium [Moles/Vol] 4.5 mmol/L 3.5-5.1 [facility] RBC Auto (Bld) [#/Vol]Ordere d By: Ko Morgan on 04-23-2023 RBC (Bld) [#/Vol] 4.52 10*6/uL 3.90-5.60 [facility] Serum or plasma anion gap de terminationOrdered By: Ko Morgan on 04-23-2023 Anion gap [Moles/Vol] 10.5 mmol/L 6.0-15.0 [facility] Serum or plasma high density lipoprotein (HDL) cholesterol measurementOrdered By: Ko Morgan on 04-23-2023 Cholesterol in HDL [Mass/Vol] 56 mg/dL 23-92 [facility] Comment on above: HDL CHOL ATP-III CLA SSIFICATION Cardiovascular RiskHDL > or equal to 60 mg/dL LOWHDL < 40 mg/dL HIGH Serum or plasma total choles terol/high density lipoprotein (HDL) cholesterol mass ratOrdered By: Ko Morgan on 04-23-2023 Cholesterol.total/Drea sterol in HDL [Mass ratio] 2.6 {ratio} <5.0 [facility] Sodium [Moles/volume] in Ser um or PlasmaOrdered By: Ko Morgan on 04-23-2023 Sodium [Moles/Vol] 137 mmol/L 136-145 [facility] Triglyceride [Mass/volume] i n Serum or PlasmaOrdered By: Ko Morgan on 04-23-2023 Triglyceride [Mass/Vol] 97 mg/dL 0-149 [facility] Comment on above: TRIG ATP III CLASSIF ICATIONTRIG less than 150 mg/dL NormalTRIG 150-199 mg/dL Borderline highTRIG 200-500 mg/dL High TRIG greater than 500 mg/dL Very highStandard traceable to the Center for Disease Conrtrol and Prevention (CDC) test method. Troponin I High Sensitivityo n 04-23-2023 Troponin I High Sensitivity 72247.2 pg/mL Off scale high 0.0-20.0 [facility] Comment on above: Result Comment: Crit ical Result : Called to and read back by: STACY JACKSON at: 04/23/2023 04:24:25 by:[id number] PERFORMED BY: [facility] [address] [place] [address] PATHOLOGIST MENU PLANNER JAMIE MADISON M.D. Performed By: #### H S TROP, LIPID, CBC, BMP #### [facility] [address] [place], [place] [address] [facility] Troponin I High Sensitivity 31207.0 pg/mL Off scale high 0.0-20.0 [facility] Comment on above: Result Comment: Crit ical Result I_TnIHS_d:34824.0 Called to and read back by: STACY JACKSON at: 04/23/2023 00:43:35 by:[id number] PERFORMED BY: [place] [address] PATHOLOGIST MENU PLANNER JAMIE MADISON M.D. Performed By: #### H S TROP #### [address] Troponin I.cardiac [Mass/vol ume] in Serum or Plasma by Detection limit <= 0.01 ng/Ordered By: Ko Morgan on 04-23-2023 Troponin I.cardiac DL <= 0.01 ng/mL [Mass/Vol] 47491.2 pg/mL 0.0-20.0 [facility] Comment on above: Critical Result : Ca lled to and read back by: STACY JACKSON at: 04/23/2023 04:24:25 by:[id number] Urea nitrogen [Mass/volume] in Serum or PlasmaOrdered By: Ko Morgan on 04-23-2023 Urea nitrogen [Mass/Vol] 24 mg/dL 7-25 [facility] WBC Auto (Bld) [#/Vol]Ordere d By: Ko Morgan on 04-23-2023 WBC (Bld) [#/Vol] 8.1 10*3/uL 4.1-10.5 [facility] ECG 12 lead ECGon 04-22-2023 ECG 12 lead ECG [facility] [place] [address] [place] [address] Electrocardiograph Report Signed Patient: Kennedy Kong MR#: [id number] 1435 : 1935 Acct:[id number] Age/Sex: 87 / M ADM Date: 04/22/23 Loc: Room: [address] [place] [address] Type: ADM IN Attending Dr: Kiki Motta [...] Signed By Randal Srivastava DO 04/23 Normal [facility] Troponin I High Sensitivityo n 04-22-2023 Troponin I High Sensitivity 09763.2 pg/mL Off scale high 0.0-20.0 [facility] Comment on above: Result Comment: Crit ical Result I_TnIHS_d:72398.2 Called to and read back by: STACY JACKSON at: 04/22/2023 20:59:13 by:[id number] PERFORMED BY: [phone] PATHOLOGIST MENU PLANNER JAMIE MADISON M.D. Performed By: #### H S TROP #### [facility] [address] [place] [address] Troponin I High Sensitivity 38874.7 pg/mL Off scale high 0.0-20.0 [facility] Comment on above: Result Comment: Crit ical Result I_TnIHS_d:83778.7 Called to and read back by: IRIS MARQUES at: 04/22/2023 18:09:03 by:[id number] PERFORMED BY: [place] [phone] PATHOLOGIST MENU PLANNER JAMIE MADISON M.D. Performed By: #### H S TROP, LIPID, CBC, BMP #### [facility] [address] [place] [address] Troponin I High Sensitivity 70858.8 pg/mL Off scale high 0.0-20.0 [facility] Comment on above: Result Comment: Crit ical Result : Called to and read back by: IRIS MARQUES at: 04/22/2023 16:04 by:[id number] PERFORMED BY: [place] [address] PATHOLOGIST MENU PLANNER JAMIE MADISON M.D. Performed By: #### H S TROP, LIPID, CBC, BMP #### [address] Consent for Procedure/Surger yon 04-09-2023 Consent for Procedure/Surgery [id number]#1. 00CD:127 Normal [facility] Ambulatory Visit Summaryon 0 04-08-2023 Ambulatory Visit Summary KENNEDY KONG :1935 Visit Date:04/08/2023 Ambulatory Visit Instructions Your Diagnosis Asymptomatic microscopic hematuria Tests Performed Urnls Dip Stick Auto w/o Microscopy POC 41943 Your Care Team Attending Physician - KARLO [...] Urnls Dip Stick Auto w/o Microscopy POC 99885 (04/08/2023) Bilirubin Urine Dipstick - Negative Blood Urine Dipstick - Negative Glucose Urine Dipstick - Negative Ketones Urine Dipstick - Negative Leukocytes Urine Dipstick - Negative Nitrite Urine Dipstick - Negative Protein Urine Dipstick - Negative Specific [place] Urine Dipstick - 1.025 Urine Appearance Urine [...] treatment for. colon ca resection hydrocele Normal [facility] Ambulatory Visit Summaryon 0 03-11-2023 Ambulatory Visit Summary KENNEDY KONG Jeremi :1935 Visit Date:03/11/2023 Ambulatory Visit Instructions Your Diagnosis Bladder cancer Tests Performed Urnls Dip Stick Auto w/o Microscopy POC 99595 Your Care Team Attending Physician - KARLO [...] Urnls Dip Stick Auto w/o Microscopy POC 50374 (03/11/2023) Bilirubin Urine Dipstick - Negative Blood Urine Dipstick - 2+ Moderate Glucose Urine Dipstick - Negative Ketones Urine Dipstick - Negative Leukocytes Urine Dipstick - Negative Nitrite Urine Dipstick - Negative Protein Urine Dipstick - Negative Specific [place] Urine Dipstick - 1.025 Urine Appearance Urine [...] receiving treatment for. colon ca resection hydrocele [facility] Consent for Procedure/Surger yon 03-11-2023 Consent for Procedure/Surgery [id number] .00CD:127 [facility] Consent for Procedure/Surgery [id number] .00CD:127 [facility] Consent for Procedure/Surgery [id number] .00CD:127 [facility] Comment on above: Other Comment: WRONG FOLDER Lab Reportson 01-15-2023 Lab Reports [id number] .00CD:127 [facility] CNOVon 01-14-2023 CNOV Office Visit ([facility] ) KENNEDY KONG ([id number]) 1935 M Date Time Provider Department 01/14/23 3:00 PM AVEL CAMACHO [facility] During your visit today, we recorded the [...] No Drains: No Referring Provider: AVEL CAMACHO [[id number]] Allergies As of Date: 01/14/2023 Noted Allergy Reaction AMOXICILLIN 04/28/2013 14 - Other: See Comments Comments: Pt gets sores in mouth Date Reviewed: 01/14/2023 Reviewed by: Micaela Henderson MA - Fully Assessed Reason for Visit: Established Patient Follow-Up [[id number]] Cmt: Reoccuring bowel blockage Primary Visit Diagnosis:Irregular [...] Status:Closed by AVEL CAMACHO on 01/17/23 Normal [facility] Operative Reporton 3 Operative Report [id number]. 00CD:127 Normal [facility] Operative Reporton 3 Operative Report [id number] .00CD:127 Normal [facility] CBC AUTO DIFFon 12-27-2022 BASO # 0.0 103/ul Normal 0.0-0.1 [facility] Comment on above: Performed By: #### C BC ####[facility] [address] [place] [id number]. Cipriano Patton Basophils/100 WBC (Bld) 0.6 % Normal 0.2-2.0 [facility] Comment on above: Performed By: #### C BC ####[facility] [address] [place] [address]Dr. Cipriano Patton EO # 0.5 103/ul Normal 0.0-0.7 [facility] Comment on above: Performed By: #### C BC ####[facility] [address] [place] [address]Dr. Cipriano Patton Eosinophils/100 WBC (Bld) 7.0 % Normal 0.9-7.0 [facility] Comment on above: Performed By: #### C BC ####[facility] [address] [place], [place] [address]Dr. Cipriano Patton Erythrocyte distribution width (RBC) [Ratio] 13.6 % Normal 11.0-15.0 [facility] Comment on above: Performed By: #### C BC ####[facility] [address] [place] [address]Dr. Cipriano Patton Hematocrit (Bld) [Volume fraction] 41.9 % Critically low 42.0-54.0 [facility] Comment on above: Performed By: #### C BC ####[facility] [address] [place] [address]Dr. Cipriano Patton Hemoglobin (Bld) [Mass/Vol] 13.7 g/dL Critically low 14.0-18.0 [facility] Comment on above: Performed By: #### C BC ####[facility] [address] [place] [address]Dr. Carolejennifer Abdi IG # 0.01 10e3/ul Normal 0.00-0.03 [facility] Comment on above: Performed By: #### C BC ####[facility] [address] [place] [address]Dr. Cipriano Patton IG % 0.2 % Normal 0.0-0.5 [facility] Comment on above: Performed By: #### C BC ####[facility] [address] [place] [address]Dr. Cipriano Patton LYMPH # 1.3 103/ul Normal 1.2-3.8 [facility] Comment on above: Performed By: #### C BC ####[facility] [address] [place] [address]Dr. Cipriano Patton Lymphocytes/100 WBC (Bld) 19.5 % Critically low 20.5-60.0 [facility] Comment on above: Performed By: #### C BC ####[facility] [address] [place] [address]Dr. Cipriano Abdi MANUAL DIFF REQ NO Normal [facility] Comment on above: Performed By: #### C BC ####[facility] [address] [place] [address]Dr. Cipriano Patton MCH (RBC) [Entitic mass] 29.4 pg Normal 25.9-34.0 [facility] Comment on above: Performed By: #### C BC ####[facility] [address] [place] [address]Dr. Cipriano Patton MCHC (RBC) [Mass/Vol] 32.7 g/dL Normal 29.9-35.2 [facility] Comment on above: Performed By: #### C BC ####[facility] [address] [place] [address]Dr. Cipriano Patton MCV (RBC) [Entitic vol] 89.9 fL Normal 80.0-94.0 [facility] Comment on above: Performed By: #### C BC ####[facility] [address] [place] [address]Dr. Cipriano Abdi MONO # 0.9 103/ul Critically high 0.3-0.8 [facility] Comment on above: Performed By: #### C BC ####[facility] [address] [place] [address]Dr. Cipriano Patton Monocytes/100 WBC (Bld) 14.7 % Critically high 1.7-12. 0 [facility] Comment on above: Performed By: #### C BC ####[facility] [address] [place] [address]Dr. Cipriano Patton NEUT # 3.7 103/ul Normal 1.4-6.5 [facility] Comment on above: Performed By: #### C BC ####[facility] [address] [place] [address]Dr. Cipriano Patton Neutrophils/100 WBC (Bld) 58.0 % Normal 43.0-75.0 [facility] Comment on above: Performed By: #### C BC ####[facility] T[address] [place] [id number]. Cipriano Patton Platelet mean volume (Bld) [Entitic vol] 8.5 fL Critically low 9.5-13.5 [facility] Comment on above: Performed By: #### C BC ####[facility] [address] [place] [id number]. Cipriano Patton PLT 215 103/ul Normal 150-450 [facility] Comment on above: Performed By: #### C BC ####[facility] [address] [place] [id number]. Cipriano Patton RBC 4.66 106/ul Critically low 4.70-6.10 [facility] Comment on above: Performed By: #### C BC ####[facility] [address] [place] [id number]. Cipriano Patton WBC 6.4 103/ul Normal 4.0-11.0 [facility] Comment on above: Performed By: #### C BC ####[facility] [address] [place] [address]Dr. Cipriano Patton Complete Blood Count and Dif marci 12-27-2022 Anisocytosis Ql (Bld) [facility] [employer] Other Basophilic stippling LM Ql (Bld) [employer] Other RBC morphology finding Nom (Bld) [employer] Other Complete Blood Count and Diff [employer] Other FERRITINon 12-27-2022 Ferritin [Mass/Vol] 130.0 ng/mL Normal 26.0-388.0 [facility] Comment on above: Performed By: #### F ERR, FETIBC, B12FOL ####[facility] [address] [place] [address]Dr. Cipriano Abdi IRON AND TIBCon 12-27-2022 Iron [Mass/Vol] 91.9822289 ug/dL 65.0-175 .0 ug/dL [employer] Other IRON AND TIBC 257.0 ug/dL 250.0-450.0 ug/dL [employer] Other IRON AND TIBC 35.4 % [employer] Other IRON AND TIBC see note [employer] Other % SATURATION 35.4 % Normal [facility] Comment on above: Performed By: #### F ERR, FETIBC, B12FOL ####[facility] [address] [place] [address]Dr. Carolejennifer Patton Iron [Mass/Vol] 91.0 ug/dL Normal 65.0-175.0 [facility] Comment on above: Performed By: #### F ERR, FETIBC, B12FOL ####[facility] [address] [place] [id number]. Carolejennifer Patton TIBC DIRECT 257.0 ug/dL Normal 250.0-450.0 [facility] Comment on above: Performed By: #### F ERR, FETIBC, B12FOL ####[facility] [address] [place] [address]Dr. Cipriano Patton VIT B12 AND FOLATEon 023 Cobalamin (Vitamin B12) [Mass/Vol] 760.3654562 pg/mL 193.0-986.0 pg/mL [facility] [employer] Other VIT B12 AND FOLATE 27.50 ng/mL 8.60-58.9 0 ng/mL [employer] [facility] [employer] Other Cobalamin (Vitamin B12) [Mass/Vol] 628.0 pg/mL Normal 193.0-986.0 [facility] Comment on above: Performed By: #### F ERR, FETIBC, B12FOL ####[facility] [address] [place], [place] [address]GqWesley Patton FOLATE 27.50 ng/mL Normal 8.60-58.90 [facility] Comment on above: Performed By: #### F ERR, FETIBC, B12FOL ####[facility] [address] [place] [id number]. Cipriano Patton Consent for Procedure/Surger yon 12-10-2022 Consent for Procedure/Surgery [id number] .00CD:127 Normal [facility] Consent for Procedure/Surger yon 11-27-2022 Consent for Procedure/Surgery [id number] .00CD:127 Normal [facility] CBC,PLATELETSon 11-05-2022 Hematocrit (Bld) [Volume fraction] 40.7 % Normal 39.6-48.8 [facility] Comment on above: Performed By: #### ARCHIE GREENE CHM7 #### [facility] (DEFAULT) [address] [address] Hemoglobin (Bld) [Mass/Vol] 13.5 g/dL Normal 13.4-16.8 [facility] Comment on above: Performed By: #### ARCHIE GREENE CHM7 #### [facility] (DEFAULT) [address] [address] MCV (RBC) [Entitic vol] 89.1 fL Normal 79.0-94.5 [facility] Comment on above: Performed By: #### ARCHIE GREENE CHM7 #### [facility] (DEFAULT) [address] [place] [address] Mean Cell Hgb 29.5 pg Normal 26.1-33.3 [facility] Comment on above: Performed By: #### ARCHIE GREENE, CHM7 #### [facility] (DEFAULT) [address] [place] [address] 87369 Mean Cell Hgb Conc 33.2 g/dL Normal 31.9-36.5 [facility] Comment on above: Performed By: #### ARCHIE GREENE, CHM7 #### [facility] (DEFAULT) [address] [place] [address] 52638 Platelet mean volume (Bld) [Entitic vol] 9.1 fL Normal 8.7-12.3 [facility] Comment on above: Performed By: #### ARCHIE GREENE, CHM7 #### [facility] (DEFAULT) [address] [place] [address] 76438 Platelets (Bld) [#/Vol] 209 10*3/uL Normal 146-337 [facility] Comment on above: Performed By: #### ARCHIE GREENE, CHM7 #### [facility] (DEFAULT) [address] [place] [address] 74714 RBC (Bld) [#/Vol] 4.57 10*6/uL Normal 4.38-5.83 [facility] Comment on above: Performed By: #### ARCHIE GREENE, CHM7 #### [facility] (DEFAULT) [address] [place] [address] 54939 RBC Distribution 12.9 % Normal 10.9-14.3 [facility] Comment on above: Performed By: #### ARCHIE GREENE, CHM7 #### [facility] (DEFAULT) [address] [place] [address] 21403 WBC (Bld) [#/Vol] 6.15 10*3/uL Normal 3.73-10.10 [facility] Comment on above: Performed By: #### ARCHIE GREENE, CHM7 #### [facility] (DEFAULT) [address] [place] [address] 05218 CHEM 7 (LYTES,BUN,CREA,GLUC) on 11-05-2022 Anion gap [Moles/Vol] 15 mmol/L Normal 7-17 [facility] Comment on above: Performed By: #### ARCHIE GREENE, CHM7 #### [facility] (DEFAULT) [address] [place] [address] 71056 Chloride [Moles/Vol] 105 mmol/L Normal 98-108 [facility] Comment on above: Performed By: #### ARCHIE GREENE, CHM7 #### [facility] (DEFAULT) [address] [place] [address] 71748 CO2 [Moles/Vol] 22 mmol/L Normal 21-31 [facility] Comment on above: Performed By: #### ARCHIE GREENE, CHM7 #### [facility] (DEFAULT) [address] [place] [address] 09009 Creatinine [Mass/Vol] 1.05 mg/dL Normal 0.70-1.30 [facility] Comment on above: Performed By: #### ARCHIE GREENE, CHM7 #### [facility] (DEFAULT) [address] [place] [address] 10910 GFR/1.73 sq M.predicted among non-blacks MDRD (S/P/Bld) [Vol rate/Area] 69 mL/min/{1.73_m2} Normal >=60 [facility] Comment on above: Result Comment: Repo rted eGFR is based on the CKD-EPI 2020 equation using creatinine, age, and sex. Performed By: #### ARCHIE GREENE, CHM7 #### [facility] (DEFAULT) [address] [place] [address] 91299 Glucose [Mass/Vol] 68 mg/dL Low 70-99 [facility] Comment on above: Performed By: #### ARCHIE GREENE, CHM7 #### [facility] (DEFAULT) [address] [place] [address] 04664 Osmolality [Osmolality] 289 mosm/kg Normal 278-305 [facility] Comment on above: Performed By: #### ARCHIE GREENE, CHM7 #### [facility] (DEFAULT) [address] [place] [address] 52925 Potassium [Moles/Vol] 4.2 mmol/L Normal 3.5-5.0 [facility] Comment on above: Performed By: #### ARCHIE GREENE, CHM7 #### [facility] (DEFAULT) [address] [place] [address] 93761 Sodium [Moles/Vol] 138 mmol/L Normal 135-145 [facility] Comment on above: Performed By: #### ARCHIE GREENE, CHM7 #### [facility] (DEFAULT) [address] [place] [address] 92922 Urea nitrogen [Mass/Vol] 17 mg/dL Normal 7-25 [facility] Comment on above: Performed By: #### ARCHIE GREENE, CHM7 #### [facility] (DEFAULT) [address] [place] [address] 15802 Urea nitrogen/Creatinine [Mass ratio] 16 mg/mg Normal [facility] Comment on above: Performed By: #### ARCHIE GREENE, CHM7 #### [facility] (DEFAULT) [address] [place] [address] 03124 HEPATIC FUNCTION PANELon Albumin [Mass/Vol] 3.4 g/dL Low 3.5-5.0 [facility] Comment on above: Performed By: #### ARCHIE GREENE, CHM7 #### [facility] (DEFAULT) [address] [place] [address] 62726 ALP [Catalytic activity/Vol] 47 U/L Normal 32-126 [facility] Comment on above: Performed By: #### ARCHIE GREENE, CHM7 #### [facility] (DEFAULT) [address] [place] [address] 75788 ALT [Catalytic activity/Vol] 6 U/L Low 10-52 [facility] Comment on above: Performed By: #### ARCHIE GREENE, CHM7 #### [facility] (DEFAULT) [address] [place] [address] 81572 AST [Catalytic activity/Vol] 14 U/L Normal 10-39 [facility] Comment on above: Performed By: #### ARCHIE GREENE, CHM7 #### [facility] (DEFAULT) [address] [place] [address] 21149 Bilirubin [Mass/Vol] 0.7 mg/dL Normal <1.5 [facility] Comment on above: Performed By: #### ARCHIE GREENE, CHM7 #### [facility] (DEFAULT) [address] [place] [address] 65541 Bilirubin.indirect [Mass/Vol] 0.1 mg/dL Normal <0.3 [facility] Comment on above: Performed By: #### ARCHIE GREENE, CHM7 #### [facility] (DEFAULT) [address] [place] [address] 93123 Protein [Mass/Vol] 5.9 g/dL Low 6.4-8.3 [facility] Comment on above: Performed By: #### ARCHIE GREENE, CHM7 #### [facility] (DEFAULT) [address] [place] [address] 87411 MAGNESIUMon 11-05-2022 Magnesium [Mass/Vol] 1.9 mg/dL Normal 1.6-2.6 [facility] Comment on above: Performed By: #### ARCHIE GREENE, CHM7 #### [facility] (DEFAULT) [address] [place] [address] 43736 PT,INR,PTTon 11-05-2022 aPTT Coag (Bld) [Time] 33.6 s Normal 24.0-34.3 [facility] Comment on above: Performed By: #### M ARCHIE BIRMINGHAM, CHM7 #### [facility] (DEFAULT) [address] [place] [address] 03710 INR Coag (PPP) [Relative time] 1.2 {INR} High 0.9-1.1 [facility] Comment on above: Performed By: #### M ARCHIE [place]IRMINGHAM, CHM7 #### [facility] (DEFAULT) [address] [place] [address] 04907 PT Coag (PPP) [Time] 14.8 s High 11.9-14.2 [facility] Comment on above: Performed By: #### M ARCHIE [place]IRMINGHAM, CHM7 #### [facility] (DEFAULT) [address] [place] [address] 93774 CBC,PLATELETSon 11-04-2022 Hematocrit (Bld) [Volume fraction] 37.3 % Low 39.6-48.8 [facility] Comment on above: Performed By: #### H EMO #### [facility] (DEFAULT) [address] [place] [address] 21726 Hemoglobin (Bld) [Mass/Vol] 12.5 g/dL Low 13.4-16.8 [facility] Comment on above: Performed By: #### H EMOGC #### [facility] (DEFAULT) [address] [place] [address] 33105 MCV (RBC) [Entitic vol] 88.4 fL Normal 79.0-94.5 [facility] Comment on above: Performed By: #### H EMOGC #### [facility] (DEFAULT) [address] [place] [address] 36361 Mean Cell Hgb 29.6 pg Normal 26.1-33.3 [facility] Comment on above: Performed By: #### H EMOGC #### [facility] (DEFAULT) [address] [place] [address] 13539 Mean Cell Hgb Conc 33.5 g/dL Normal 31.9-36.5 [facility] Comment on above: Performed By: #### H EMOGC #### [facility] (DEFAULT) [address] [place] [address] 95600 Platelet mean volume (Bld) [Entitic vol] 9.0 fL Normal 8.7-12.3 [facility] Comment on above: Performed By: #### H EMOGC #### [facility] (DEFAULT) [address] [place] [address] 44862 Platelets (Bld) [#/Vol] 198 10*3/uL Normal 146-337 [facility] Comment on above: Performed By: #### H EMOGC #### [facility] (DEFAULT) [address] [place] [address] 78619 RBC (Bld) [#/Vol] 4.22 10*6/uL Low 4.38-5.83 [facility] Comment on above: Performed By: #### H EMO #### [facility] (DEFAULT) [address] [place] [address] 75546 RBC Distribution 12.9 % Normal 10.9-14.3 [facility] Comment on above: Performed By: #### H EMOGC #### [facility] (DEFAULT) [address] [place] [address] 84354 WBC (Bld) [#/Vol] 5.77 10*3/uL Normal 3.73-10.10 [facility] Comment on above: Performed By: #### H EMOGC #### [facility] (DEFAULT) [address] [place] [address] 74782 CHEM 7 (LYTES,BUN,CREA,GLUC) on 11-04-2022 Anion gap [Moles/Vol] 10 mmol/L Normal 7-17 [facility] Comment on above: Performed By: #### M GO, HFP, CHM7 #### [facility] (DEFAULT) [address] [place] [address] 75939 Chloride [Moles/Vol] 108 mmol/L Normal 98-108 [facility] Comment on above: Performed By: #### M GO, HFP, CHM7 #### [facility] (DEFAULT) [address] [place] [address] 79700 CO2 [Moles/Vol] 22 mmol/L Normal 21-31 [facility] Comment on above: Performed By: #### ARCHIE GREENE, CHM7 #### [facility] (DEFAULT) [address] [place] [address] 37307 Creatinine [Mass/Vol] 0.91 mg/dL Normal 0.70-1.30 [facility] Comment on above: Performed By: #### ARCHIE GREENE, CHM7 #### [facility] (DEFAULT) [address] [place] [address] 13065 GFR/1.73 sq M.predicted among non-blacks MDRD (S/P/Bld) [Vol rate/Area] 82 mL/min/{1.73_m2} Normal >=60 [facility] Comment on above: Result Comment: Repo rted eGFR is based on the CKD-EPI 2020 equation using creatinine, age, and sex. Performed By: #### ARCHIE GREENE, CHM7 #### [facility] (DEFAULT) [address] [place] [address] 37801 Glucose [Mass/Vol] 81 mg/dL Normal 70-99 [facility] Comment on above: Performed By: #### ARCHIE GREENE, CHM7 #### [facility] (DEFAULT) [address] [place] [address] 60807 Osmolality [Osmolality] 285 mosm/kg Normal 278-305 [facility] Comment on above: Performed By: #### ARCHIE GREENE, CHM7 #### [facility] (DEFAULT) [address] [place] [address] 40879 Potassium [Moles/Vol] 4.0 mmol/L Normal 3.5-5.0 [facility] Comment on above: Performed By: #### ARCHIE GREENE, CHM7 #### [facility] (DEFAULT) [address] [place] [address] 26565 Sodium [Moles/Vol] 136 mmol/L Normal 135-145 [facility] Comment on above: Performed By: #### M ARCHIE BIRMINGHAM CHM7 #### [facility] (DEFAULT) [address] [place] [address] 92371 Urea nitrogen [Mass/Vol] 15 mg/dL Normal 7-25 [facility] Comment on above: Performed By: #### M ARCHIE [place]IRMING[place], CHM7 #### [facility] (DEFAULT) [address] [place] [address] Urea nitrogen/Creatinine [Mass ratio] 16 mg/mg Normal [facility] Comment on above: Performed By: #### M ARCHIE [place]IRMINGH[place], CHM7 #### [facility] (DEFAULT) [address] [place] [address] ABDOMEN/ABDOMEN-PELVIS (I NTERPRETATION - OUTSIDE IMAGE)on 11-04-2022 CT ABDOMEN/ABDOMEN-PELVIS (INTERPRETATION - OUTSIDE IMAGE) EXAM: CT ABDOMEN/ABDOMEN-PELVI S (INTERPRETATION - OUTSIDE IMAGE), 11/04/2022 10:11 AM [...] granulomas. Pancreas: Normal. Adrenals: Normal. Kidneys: Normal. Retroperitoneal/Vascu lature: No enlarged lymph nodes. Few surgical clips in the retroperitoneum along the left psoas muscle. Mild atherosclerotic calcification of the abdominal aorta. Major branch vessels are patent. The portal, splenic, and superior mesenteric veins are patent. Gastrointestinal/Mese ntery: Rectal anastomosis without appreciable recurrent mass. No [...] disease in the abdomen or pelvis. Normal [facility] CT Abdomen and Pelvison 10-21 IMPRESSION: 1. Suspect early/partial small bowel obstruction versus ileus. A transition point is not clearly visible. Small right femoral hernia with a few small bowel loops does not appear to be a site of obstruction. 2. 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 No findings of metastatic disease in the abdomen or pelvis. OLOGY EXAM: CT ABDOMEN/ABDOMEN-PELVI S (INTERPRETATION - OUTSIDE IMAGE), 11/04/2022 10:11 AM [...] granulomas. Pancreas: Normal. Adrenals: Normal. Kidneys: Normal. Retroperitoneal/Vascu lature: No enlarged lymph nodes. Few surgical clips in the retroperitoneum along the left psoas muscle. Mild atherosclerotic calcification of the abdominal aorta. Major branch vessels are patent. The portal, splenic, and superior mesenteric veins are patent. Gastrointestinal/Mese ntery: Rectal anastomosis without appreciable recurrent mass. No [...] changes of the spine. No suspicious lesion. RADIOLOGY Samantha Saldaña MD - 11/04/2022 EXAM: CT ABDOMEN/ABDOMEN-PELVI S (INTERPRETATION - OUTSIDE IMAGE), 11/04/2022 10:11 AM [...] granulomas. Pancreas: Normal. Adrenals: Normal. Kidneys: Normal. Retroperitoneal/Vascu lature: No enlarged lymph nodes. Few surgical clips in the retroperitoneum along the left psoas muscle. Mild atherosclerotic calcification of the abdominal aorta. Major branch vessels are patent. The portal, splenic, and superior mesenteric veins are patent. Gastrointestinal/Mese ntery: Rectal anastomosis without appreciable recurrent mass. No [...] changes of the spine. No suspicious lesion. IMPRESSION IMPRESSION: 1. Suspect early/partial small bowel obstruction versus ileus. A transition point is not clearly visible. Small right femoral hernia with a few small bowel loops does not appear to be a site of obstruction. 2. 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 No findings of metastatic disease in the abdomen or pelvis. [facility] Radiology Study observation (narrative) [facility] CT Abdomen and PelvisOrdered By: Samantha Saldaña on 11-04-2022 [facility] Work Phone: HEPATIC FUNCTION PANELon Albumin [Mass/Vol] 3.2 g/dL Low 3.5-5.0 [facility] Comment on above: Performed By: #### M VALENCIA HFP, CHM7 #### [facility] (DEFAULT) [address] [place] [address] 98193 ALP [Catalytic activity/Vol] 41 U/L Normal 32-126 [facility] Comment on above: Performed By: #### M VALENCIA, HFP, CHM7 #### [facility] (DEFAULT) [address] [place] [address] 68533 ALT [Catalytic activity/Vol] 7 U/L Low 10-52 [facility] Comment on above: Performed By: #### M VALENCIA, HFP, CHM7 #### [facility] (DEFAULT) [address] [place] [address] 91075 AST [Catalytic activity/Vol] 13 U/L Normal 10-39 [facility] Comment on above: Performed By: #### M VALENCIA, HFP, CHM7 #### [facility] (DEFAULT) [address] [place] [address] 10620 Bilirubin [Mass/Vol] 0.6 mg/dL Normal <1.5 [facility] Comment on above: Performed By: #### M VALENCIA, HFP, CHM7 #### [facility] (DEFAULT) [address] [place] [address] 28336 Bilirubin.indirect [Mass/Vol] 0.1 mg/dL Normal <0.3 [facility] Comment on above: Performed By: #### M VALENCIA, HFP, CHM7 #### [facility] (DEFAULT) [address] [place] [address] 62037 Protein [Mass/Vol] 5.6 g/dL Low 6.4-8.3 [facility] Comment on above: Result Comment: Resu lts inconsistent with previous results Performed By: #### M VALENCIA, HFP, CHM7 #### [facility] (DEFAULT) [address] [place] [address] 37447 MAGNESIUMon 11-04-2022 Magnesium [Mass/Vol] 1.8 mg/dL Normal 1.6-2.6 [facility] Comment on above: Performed By: #### ARCHIE GREENE CHM7 #### [facility] (DEFAULT) [address] [place] [address] 04007 PT,INR,PTTon 11-04-2022 aPTT Coag (Bld) [Time] 31.9 s Normal 24.0-34.3 [facility] Comment on above: Performed By: #### P TPTT #### [facility] (DEFAULT) [address] [place] [address] 98578 INR Coag (PPP) [Relative time] 1.1 {INR} Normal 0.9-1.1 [facility] Comment on above: Performed By: #### P TPTT #### [facility] (DEFAULT) [address] [place] [address] 17719 PT Coag (PPP) [Time] 14.3 s High 11.9-14.2 [facility] Comment on above: Performed By: #### P TPTT #### [facility] (DEFAULT) [address] [place] [address] 97896 CALCIUMon 11-03-2022 Calcium [Mass/Vol] 9.4 mg/dL Normal 8.6-10.5 [facility] Comment on above: Performed By: #### ARCHIE GREENE, PAULINO #### [facility] (DEFAULT) [address] [place] [address] 32803 CBC AND ELECTRONIC DIFFon Abs Baso Auto < Normal 0.00-0.09 [facility] Comment on above: Performed By: #### L [id number] #### [facility] (DEFAULT) [address] [place] [address] 16627 Basophils/100 WBC (Bld) 0.2 % Normal O [facility] Comment on above: Performed By: #### L [id number] #### [facility] (DEFAULT) [address] [place] [address] 92576 DIFF STATUS Electronic Differential Normal [facility] Comment on above: Performed By: #### L [id number] #### [facility] (DEFAULT) [address] [place] [address] 68256 Eosinophils (Bld) [#/Vol] 0.25 10*3/uL Normal 0.00-0.48 [facility] Comment on above: Performed By: #### L [id number] #### [facility] (DEFAULT) [address] [place] [address] 09189 Eosinophils/100 WBC (Bld) 3.0 % Normal [facility] Comment on above: Performed By: #### L [id number] #### [facility] (DEFAULT) [address] [place] [address] 10818 Hematocrit (Bld) [Volume fraction] 43.6 % Normal 39.6-48.8 [facility] Comment on above: Performed By: #### L AB980 #### [facility] (DEFAULT) [address] 0[address] Hemoglobin (Bld) [Mass/Vol] 14.5 g/dL Normal 13.4-16.8 [facility] Comment on above: Performed By: #### L AB980 #### [facility] (DEFAULT) [address] [address]79 Immature Grans % 0.2 % Normal [facility] Comment on above: Performed By: #### L [id number] #### [facility] (DEFAULT) [address] [address] Immature Grans Absolute < Normal <=0.07 [facility] Comment on above: Performed By: #### L [id number] #### [facility] (DEFAULT) [address] [place] [address] 45638 Lymphocytes (Bld) [#/Vol] 1.05 10*3/uL Normal 0.83-3.57 [facility] Comment on above: Performed By: #### L [id number] #### [facility] (DEFAULT) [address] [place] [address] 46342 Lymphocytes/100 WBC (Bld) 12.5 % Normal [facility] Comment on above: Performed By: #### L [id number] #### [facility] (DEFAULT) [address] [place] [address] 29035 MCV (RBC) [Entitic vol] 89.0 fL Normal 79.0-94.5 [facility] Comment on above: Performed By: #### L [id number] #### [facility] (DEFAULT) [address] [place] [address] 76937 Mean Cell Hgb 29.6 pg Normal 26.1-33.3 [facility] Comment on above: Performed By: #### L [id number] #### [facility] (DEFAULT) [address] [place] [address] 54955 Mean Cell Hgb Conc 33.3 g/dL Normal 31.9-36.5 [facility] Comment on above: Performed By: #### L [id number] #### [facility] (DEFAULT) [address] [address]73 Monocytes (Bld) [#/Vol] 1.15 10*3/uL High 0.24-0.93 [facility] Comment on above: Performed By: #### L [id number] #### [facility] (DEFAULT) [address] [place] [address] 78231 Monocytes/100 WBC (Bld) 13.7 % Normal O [facility] Comment on above: Performed By: #### L [id number] #### [facility] (DEFAULT) [address] 9[address]40 Nucleated RBC 0.0 /100 WBC Normal <=0.2 [facility] Comment on above: Performed By: #### L [id number] #### [facility] (DEFAULT) [address] [place] [address] 62735 Platelet mean volume (Bld) [Entitic vol] 8.8 fL Normal 8.7-12.3 [facility] Comment on above: Performed By: #### L [id number] #### [facility] (DEFAULT) [address] [place] [address] 73583 Platelets (Bld) [#/Vol] 223 10*3/uL Normal 146-337 [facility] Comment on above: Performed By: #### L [id number] #### [facility] (DEFAULT) [address] [place] [address] 37174 RBC (Bld) [#/Vol] 4.90 10*6/uL Normal 4.38-5.83 [facility] Comment on above: Performed By: #### L [id number] #### [facility] (DEFAULT) [address] [place] [address] 58264 RBC Distribution 12.9 % Normal 10.9-14.3 [facility] Comment on above: Performed By: #### L [id number] #### [facility] (DEFAULT) [address] [place] [address] 58673 Segs + Bands Auto 70.4 % Normal [facility] Comment on above: Performed By: #### L [id number] #### [facility] (DEFAULT) [address] [place] [address] 78565 Segs + Bands,Absolute Auto 5.91 K/uL Normal 1.57-6.19 [facility] Comment on above: Performed By: #### L [id number] #### [facility] (DEFAULT) [address] [place] [address] 72959 WBC (Bld) [#/Vol] 8.40 10*3/uL Normal 3.73-10.10 [facility] Comment on above: Performed By: #### L [id number] #### [facility] (DEFAULT) [address] [place] [address] 05332 CBC AUTO DIFFon 11-03-2022 BASO # 0.0 103/ul Normal 0.0-0.1 [facility] Comment on above: Performed By: #### C BC #### [facility] [address] [address] [address] Cipriano Patton Basophils/100 WBC (Bld) 0.3 % Normal 0.2-2.0 [facility] Comment on above: Performed By: #### C BC #### [facility] [address] [address] [address] Cipriano Patton EO # 0.3 103/ul Normal 0.0-0.7 [facility] Comment on above: Performed By: #### C BC #### [facility] [address] [address] [address] Cipriano Patton Eosinophils/100 WBC (Bld) 4.0 % Normal 0.9-7.0 [facility] Comment on above: Performed By: #### C BC #### [facility] [address] [place] [address] Dr. Cipriano Patton Erythrocyte distribution width (RBC) [Ratio] 13.1 % Normal 11.0-15.0 [facility] Comment on above: Performed By: #### C BC #### [facility] [address] [place] [address] Dr. Cipriano Patton Hematocrit (Bld) [Volume fraction] 41.6 % Critically low 42.0-54.0 [facility] Comment on above: Performed By: #### C BC #### [facility] [address] [place] [address] Dr. Cipriano Patton Hemoglobin (Bld) [Mass/Vol] 14.1 g/dL Normal 14.0-18.0 [facility] Comment on above: Performed By: #### C BC #### [facility] [address] [place] [address] Dr. Cipriano Patton IG # 0.02 10e3/ul Normal 0.00-0.03 [facility] Comment on above: Performed By: #### C BC #### [facility] [address] [place] [address] Dr. Cipriano Patton IG % 0.3 % Normal 0.0-0.5 [facility] Comment on above: Performed By: #### C BC #### [facility] [address] [address] [address] Cipriano Patton LYMPH # 1.0 103/ul Critically low 1.2-3.8 [facility] Comment on above: Performed By: #### C BC #### [facility] [address] [address] [address] Cipriano Patton Lymphocytes/100 WBC (Bld) 13.0 % Critically low 20.5-60.0 [facility] Comment on above: Performed By: #### C BC #### [facility] Laboratory [address] [address] [address] Cipriano Patton MANUAL DIFF REQ NO Normal [facility] Comment on above: Performed By: #### C BC #### [facility] [address] [place] [address] Dr. Cipriano Patton MCH (RBC) [Entitic mass] 29.6 pg Normal 25.9-34.0 [facility] Comment on above: Performed By: #### C BC #### [facility] [address] [place] [address] Dr. Cipriano Patton MCHC (RBC) [Mass/Vol] 33.9 g/dL Normal 29.9-35.2 [facility] Comment on above: Performed By: #### C BC #### [facility] [address] [place] [address] Dr. Cipriano Patton MCV (RBC) [Entitic vol] 87.2 fL Normal 80.0-94.0 [facility] Comment on above: Performed By: #### C BC #### [facility] [address] [address] [address] Cipriano Patotn MONO # 0.9 103/ul Critically high 0.3-0.8 [facility] Comment on above: Performed By: #### C BC #### [facility] [address] [address] [address] Cipriano Patton Monocytes/100 WBC (Bld) 12.9 % Critically high 1.7-12. 0 [facility] Comment on above: Performed By: #### C BC #### [facility] [address] [address] [address] Cipriano Patton NEUT # 5.1 103/ul Normal 1.4-6.5 [facility] Comment on above: Performed By: #### C BC #### [facility] [address] [address] [address] Cipriano Patton Neutrophils/100 WBC (Bld) 69.5 % Normal 43.0-75.0 [facility] Comment on above: Performed By: #### C BC #### [facility] [address] [place] [address] Dr. Cipriano Patton Platelet mean volume (Bld) [Entitic vol] 8.7 fL Critically low 9.5-13.5 [facility] Comment on above: Performed By: #### C BC #### [facility] [address] [place] [address] Dr. Cipriano Patton PLT 216 103/ul Normal 150-450 [facility] Comment on above: Performed By: #### C BC #### [facility] [address] [place] [address] Dr. Cipriano Patton RBC 4.77 106/ul Normal 4.70-6.10 [facility] Comment on above: Performed By: #### C BC #### [facility] [address] [place] [address] Dr. Cipriano Patton WBC 7.3 103/ul Normal 4.0-11.0 [facility] Comment on above: Performed By: #### C BC #### [facility] [address] [place] [address] Dr. Cipriano Patton [facility] 7 - EDon 11-03-2022 Anion gap [Moles/Vol] 11 mmol/L Normal 7-17 [facility] Comment on above: Performed By: #### M ARCHIE BIRMINGHAM, CHM7 #### [facility] (DEFAULT) [address] [place] [address] Chloride [Moles/Vol] 105 mmol/L Normal 98-108 [facility] Comment on above: Performed By: #### ARCHIE GREENE CHM7 #### [facility] (DEFAULT) [address] [place] [address] CO2 [Moles/Vol] 27 mmol/L Normal 21-31 [facility] Comment on above: Performed By: #### ARCHIE GREENE, CHM7 #### [facility] (DEFAULT) [address] [place] [address] Creatinine [Mass/Vol] 1.02 mg/dL Normal 0.70-1.30 [facility] Comment on above: Performed By: #### ARCHIE GREENE, CHM7 #### [facility] (DEFAULT) [address] [place] [address] GFR/1.73 sq M.predicted among non-blacks MDRD (S/P/Bld) [Vol rate/Area] 72 mL/min/{1.73_m2} Normal >=60 [facility] Comment on above: Result Comment: Repo rted eGFR is based on the CKD-EPI 2020 equation using creatinine, age, and sex. Performed By: #### ARCHIE GREENE CHM7 #### [facility] (DEFAULT) [address] [place] [address] Glucose [Mass/Vol] 97 mg/dL Normal 70-99 [facility] Comment on above: Performed By: #### ARCHIE GREENE, CHM7 #### [facility] (DEFAULT) [address] [place] [address] Osmolality [Osmolality] 291 mosm/kg Normal 278-305 [facility] Comment on above: Performed By: #### ARCHIE GREENE, CHM7 #### [facility] (DEFAULT) [address] [place] [address] Potassium [Moles/Vol] 4.6 mmol/L Normal 3.5-5.0 [facility] Comment on above: Performed By: #### ARCHIE GREENE, CHM7 #### [facility] (DEFAULT) [address] [place] [address] Sodium [Moles/Vol] 138 mmol/L Normal 135-145 [facility] Comment on above: Performed By: #### M ARCHIE BIRMINGHAM, CHM7 #### [facility] (DEFAULT) [address] [place] [address] Urea nitrogen [Mass/Vol] 16 mg/dL Normal 7-25 [facility] Comment on above: Performed By: #### M ARCHIE BIRMINGHAM, CHM7 #### [facility] (DEFAULT) [address] [place] [address] Urea nitrogen/Creatinine [Mass ratio] 16 mg/mg Normal [facility] Comment on above: Performed By: #### M ARCHIE BIRMING[place]AM, CHM7 #### [facility] (DEFAULT) [address] [place] [address] ABD/PELV W CONon 11-03-19 CT ABD/PELV W CON EXAMINATION: CT ABD/PELV W CON 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; 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 notes state [...] ANKIT DANIEL Date: 2022-11-03 11:55 Normal [facility] HEPATIC FUNCTION PANELon Albumin [Mass/Vol] 3.9 g/dL Normal 3.5-5.0 [facility] Comment on above: Performed By: #### ARCHIE GREENE, CHM7 #### [facility] (DEFAULT) [address] [place] [address] 35029 ALP [Catalytic activity/Vol] 49 U/L Normal 32-126 [facility] Comment on above: Performed By: #### ARCHIE GREENE, CHM7 #### [facility] (DEFAULT) [address] [place] [address] 64878 ALT [Catalytic activity/Vol] 8 U/L Low 10-52 [facility] Comment on above: Performed By: #### ARCHIE GREENE, CHM7 #### [facility] (DEFAULT) [address] [place] [address] 02341 AST [Catalytic activity/Vol] 14 U/L Normal 10-39 [facility] Comment on above: Performed By: #### ARCHIE GREENE, CHM7 #### [facility] (DEFAULT) [address] [place] [address] 73085 Bilirubin [Mass/Vol] 0.6 mg/dL Normal <1.5 [facility] Comment on above: Performed By: #### ARCHIE GREENE, CHM7 #### [facility] (DEFAULT) [address] [place] [address]64 Bilirubin.indirect [Mass/Vol] 0.1 mg/dL Normal <0.3 [facility] Comment on above: Performed By: #### ARCHIE GREENE, CHM7 #### [facility] (DEFAULT) [address] [place] [address] 11290 Protein [Mass/Vol] 6.8 g/dL Normal 6.4-8.3 [facility] Comment on above: Performed By: #### M ARCHIE BIRMINGHAM, CHM7 #### [facility] (DEFAULT) [address] [place] [address] 29729 LACTATE, WHOLE BLOODon 11-03 Lactate, Whole Blood 1.1 mmol/L Normal 0.5-1.6 [facility] Comment on above: Performed By: #### B GLACT #### [facility] (DEFAULT) [address] [place] [address] LIPASEon 11-03-2022 Lipase [Catalytic activity/Vol] 13 U/L Normal 11-82 [facility] Comment on above: Performed By: #### M ARCHIE BIRMINGHAM, CHM7 #### [facility] (DEFAULT) [address] [place] [address] MAGNESIUMon 11-03-2022 Magnesium [Mass/Vol] 2.0 mg/dL Normal 1.6-2.6 [facility] Comment on above: Performed By: #### M ARCHIE BIRMINGHAM, CHM7 #### [facility] (DEFAULT) [address] [place] [address]241 PHOSPHATE, INORGANICon 11-03 Phosphorous 3.3 mg/dL Normal 2.2-4.6 [facility] Comment on above: Performed By: #### ARCHIE GREENE, CHM7 #### [facility] (DEFAULT) [address] [place] [address]176 PROF 14(COMP METB)on 023 Albumin [Mass/Vol] 3.4 g/dL Normal 3.4-5.0 [facility] Comment on above: Performed By: #### C MP #### [facility] [address] [place] [address] Dr. Cipriano Patton Albumin/Globulin [Mass ratio] 1.0 {ratio} Normal [facility] Comment on above: Performed By: #### C MP #### [facility] [address] [address] [address] Cipriano Patton ALP [Catalytic activity/Vol] 53 U/L Normal 46-116 [facility] Comment on above: Performed By: #### C MP #### [facility] [address] [address] [address] Cipriano Patton ALT [Catalytic activity/Vol] 13 U/L Critically low 16-63 [facility] Comment on above: Performed By: #### C MP #### [facility] [address] [address] [address] Cipriano Patton Anion gap [Moles/Vol] 9.3 mmol/L Normal [facility] Comment on above: Performed By: #### C MP #### [facility] [address] [address] [address] Cipriano Patton AST [Catalytic activity/Vol] 24 U/L Normal 15-37 [facility] Comment on above: Performed By: #### C MP #### [facility] [address] [address] [address] Cipriano Patton Bilirubin [Mass/Vol] 0.5 mg/dL Normal 0.2-1.0 [facility] Comment on above: Performed By: #### C MP #### [facility] [address] [address] [address] Cipriano Patton Calcium [Mass/Vol] 9.2 mg/dL Normal 8.5-10.1 [facility] Comment on above: Performed By: #### C MP #### [facility] [address] [address] [address] Cipriano Patton Chloride [Moles/Vol] 105 mmol/L Normal 98-107 [facility] Comment on above: Performed By: #### C MP #### [facility] [address] [address] [address] Cipriano Patton CO2 [Moles/Vol] 30.4 mmol/L Normal 21.0-32.0 [facility] Comment on above: Performed By: #### C MP #### [facility] [address] [address] [address] Cipriano Patton Creatinine [Mass/Vol] 1.02 mg/dL Normal 0.70-1.30 [facility] Comment on above: Performed By: #### C MP #### [facility] [address] [address] [address] Cipriano Patton EGFR-AF LITHUANIAN >60 Normal >=60 [facility] Comment on above: Performed By: #### C MP #### [facility] [address] [address] [address] Cipriano Patton EGFR-NON AF LITHUANIAN >60 Normal >=60 [facility] Comment on above: Performed By: #### C MP #### [facility] [address] [address] [address] Cipriano Patton Globulin (S) [Mass/Vol] 3.3 g/dL Normal [facility] Comment on above: Performed By: #### C MP #### [facility] [address] [address] [address] Cipriano Patton Glucose [Mass/Vol] 92 mg/dL Normal 74-106 [facility] Comment on above: Performed By: #### C MP #### [facility] [address] [address] [address] Cipriano Patton Potassium [Moles/Vol] 4.7 mmol/L Normal 3.5-5.1 [facility] Comment on above: Performed By: #### C MP #### [facility] [address] [address] [address] Cipriano Patton Protein [Mass/Vol] 6.7 g/dL Normal 6.4-8.2 [facility] [place] [facility] Comment on above: Performed By: #### C MP #### [facility] [address] [address] [address] Cipriano Patton Sodium [Moles/Vol] 140 mmol/L Normal 136-145 [facility] [place] [facility] Comment on above: Performed By: #### C MP #### [facility] [address] [address] [address] Cipriano Patton Urea nitrogen [Mass/Vol] 18.0 mg/dL Normal 7.0-18.0 [facility] Comment on above: Performed By: #### C MP #### [facility] [address] [address] [address] Cipriano Patton Urea nitrogen/Creatinine [Mass ratio] 17.6 mg/mg Normal [facility] Comment on above: Performed By: #### C MP #### [facility] [address] [address] [address] Cipriano Patton URINALYSISon 11-03-2022 Appearance (U) Clear Normal Clear [facility] Comment on above: Performed By: #### U RIN #### [facility] (DEFAULT) [address] [place] [address]29 Bacteria ABSENT Normal ABSENT [facility] Comment on above: Performed By: #### U RIN #### [facility] (DEFAULT) [address] [place] [address] 95269 Blood Urine Moderate Abnormal Negative [facility] Comment on above: Performed By: #### U RIN #### [facility] (DEFAULT) [address] [place] [address] 85228 Color (U) Yellow Normal Yellow [facility] Comment on above: Performed By: #### U RIN #### [facility] (DEFAULT) [address] [place] [address] 87270 Glucose Ql (U) Negative Normal Negative [facility] Comment on above: Performed By: #### U RIN #### [facility] (DEFAULT) [address] [place] [address] 98577 Ketones Ql (U) Trace Abnormal Negative [facility] Comment on above: Performed By: #### U RIN #### [facility] (DEFAULT) [address] [place] [address] 41391 Leukocyte esterase Test strip Ql (U) Negative Normal Negative [facility] Comment on above: Performed By: #### U RIN #### [facility] (DEFAULT) [address] [place] [address]7747 Nitrites Urine Negative Normal Negative [facility] Comment on above: Performed By: #### U RIN #### [facility] (DEFAULT) [address] [place] [address] 31896 pH (U) 5.5 [pH] Normal 5.0-7.0 [facility] Comment on above: Performed By: #### U RIN #### [facility] (DEFAULT) [address] [address] Protein Urine Negative Normal Negative [facility] Comment on above: Performed By: #### U RIN #### [facility] (DEFAULT) [address] [place] [address] 19411 RBC Urine 6-9 Abnormal 0-2 [facility] Comment on above: Performed By: #### U RIN #### [facility] (DEFAULT) [address] [address] Specific [place] Urine <= Normal >1.00 1-<1.0 35 [facility] Comment on above: Performed By: #### U RIN #### [facility] (DEFAULT) [address] [address] Squamous/Epithelial Cells 1/hpf = 1+ Normal 1/hpf = 1+, 2-5/hpf = 2+, 0/hpf = 0+, ABSENT [facility] Comment on above: Performed By: #### U RIN #### [facility] (DEFAULT) [address] [address] Urobilinogen Urine 0.2 E.U./dL Normal 0.2 E.U/d L, 1.0 E.U/dL [facility] Comment on above: Performed By: #### U RIN #### [facility] (DEFAULT) [address] [place] [address]307 WBC Urine 0-5 Normal 0-5 [facility] Comment on above: Performed By: #### U RIN #### [facility] (DEFAULT) [address] [address] URINE CULTUREon 11-03-2022 Bacteria identified Cx Nom (U) No significant growth. Routine cultures are evaluated for significant uro-pathogens >=10,000 CFU/mL Normal [facility] Comment on above: Order Comment: For i ndwelling catheters, specimen collection is acceptable on catheter day 1 and 2 only. Jauregui top vacutainer. Urine must be to the fill line to process (4mls). If minimum volume, send urine in a yellow top vacutainer tube. Performed By: #### U R #### [facility] (DEFAULT) [address] [place] [address] 16917 XR ABD FLAT UP_PA Lobo 11-03 XR ABD FLAT UP_PA CH EXAM: XR ABD FLAT UP_PA CH 11/03/2022. HISTORY: CONSTIPATION, UNSPECIFIED COMPARISON: CT [...] pattern appears nonobstructive. Electronically authenticated by: MANAV PARK Date: 2022-11-03 09:52 Normal [facility] GLYCOHEMOGLOBIN A1Con 2021 ADA RECOMMENDATION SEE BELOW Normal [facility] Comment on above: Result Comment: ADA RECOMMENDED LIMIT 4.0 - 6.0 ADA THERAPEUTIC TARGET < 7.0 ACTION SUGGESTED > 7.0 Performed By: #### A 1C #### [facility] [address] [place], [place] [address] Dr. Cipriano Patton Glucose [Mass/Vol] 111 mg/dL Normal [facility] Comment on above: Performed By: #### A 1C #### [facility] [address] [place], [place] [address] Dr. Cipriano Patton HbA1c (Bld) [Mass fraction] 5.5 % Normal 4.5-6.2 [facility] Comment on above: Performed By: #### A 1C #### [facility] [address] [address] [address] Cipriano Patton PROF CHEM 8 (BAS METB)on Anion gap [Moles/Vol] 9.4 mmol/L Normal [facility] Comment on above: Performed By: #### B MP ####[facility] [address] [address]Dr[address] Cipriano Patton Calcium [Mass/Vol] 9.2 mg/dL Normal 8.5-10.1 [facility] Comment on above: Performed By: #### B MP ####[facility] [address] [address]Dr[address] Cipriano Patton Chloride [Moles/Vol] 103 mmol/L Normal 98-107 [facility] Comment on above: Performed By: #### B MP ####[facility] [address] [address]DrWesley Patton CO2 [Moles/Vol] 30.6 mmol/L Normal 21.0-32.0 [facility] Comment on above: Performed By: #### B MP ####[facility] [address] [address]Dr. Cipriano Patton Creatinine [Mass/Vol] 1.06 mg/dL Normal 0.70-1.30 [facility] Comment on above: Performed By: #### B MP ####[facility] [address] [address] Cipriano Patton EGFR-AF LITHUANIAN >60 Normal >=60 [facility] Comment on above: Performed By: #### B MP ####[facility] [address] [address]Dr. Cipriano Patton EGFR-NON AF LITHUANIAN >60 Normal >=60 [facility] Comment on above: Performed By: #### B MP ####[facility] [address] [address]Dr. Cipriano Patton Glucose [Mass/Vol] 96 mg/dL Normal 74-106 [facility] Comment on above: Performed By: #### B MP ####[facility] [address] [address]Dr[address] Cipriano Patton Potassium [Moles/Vol] 5.0 mmol/L Normal 3.5-5.1 [facility] Comment on above: Performed By: #### B MP ####[facility] [address] [address]Dr[address] Cipriano Patton Sodium [Moles/Vol] 138 mmol/L Normal 136-145 [facility] Comment on above: Performed By: #### B MP ####[facility] [address] [address]Dr[address] Cipriano Patton Urea nitrogen [Mass/Vol] 29.0 mg/dL Critically high 7.0-18.0 [facility] Comment on above: Performed By: #### B MP ####[facility] [address] [address]Dr. Cipriano Patton Urea nitrogen/Creatinine [Mass ratio] 27.4 mg/mg Normal [facility] Comment on above: Performed By: #### B MP ####[facility] [address] [address]Dr[address] Cipriano Patton CBC AUTO DIFFon 07-02-2022 BASO # 0.0 103/ul Normal 0.0-0.1 [facility] Comment on above: Performed By: #### C BC #### [facility] [address] [address] [address] Cipriano Patton Basophils/100 WBC (Bld) 0.5 % Normal 0.2-2.0 [facility] Comment on above: Performed By: #### C BC #### [facility] [address] [address] [address] Cipriano Patton EO # 0.4 103/ul Normal 0.0-0.7 [facility] Comment on above: Performed By: #### C BC #### [facility] [address] [place] [address] Dr. Cipriano Patton Eosinophils/100 WBC (Bld) 6.9 % Normal 0.9-7.0 [facility] Comment on above: Performed By: #### C BC #### [facility] [address] [place] [address] Dr. Cipriano Patton Erythrocyte distribution width (RBC) [Ratio] 13.5 % Normal 11.0-15.0 [facility] Comment on above: Performed By: #### C BC #### [facility] [address] [place] [address] Dr. Cipriano Patton Hematocrit (Bld) [Volume fraction] 42.5 % Normal 42.0-54.0 [facility] Comment on above: Performed By: #### C BC #### [facility] [address] [place] [address] Dr. Cipriano Patton Hemoglobin (Bld) [Mass/Vol] 13.7 g/dL Critically low 14.0-18.0 [facility] Comment on above: Performed By: #### C BC #### [facility] [address] [place] [address] Dr. Cipriano Patton IG # 0.02 10e3/ul Normal 0.00-0.03 [facility] Comment on above: Performed By: #### C BC #### [facility] [address] [place] [address] Dr. Cipriano Patton IG % 0.4 % Normal 0.0-0.5 [facility] Comment on above: Performed By: #### C BC #### [facility] [address] [place] [address] Dr. Cipriano Patton LYMPH # 1.3 103/ul Normal 1.2-3.8 [facility] Comment on above: Performed By: #### C BC #### [facility] [address] [place] [address] Dr. Cipriano Patton Lymphocytes/100 WBC (Bld) 23.7 % Normal 20.5-60.0 [facility] Comment on above: Performed By: #### C BC #### [facility] [address] [place] [address] Dr. Cipriano Patton MANUAL DIFF REQ NO Normal [facility] Comment on above: Performed By: #### C BC #### [facility] [address] [place] [address] Dr. Cipriano Patton MCH (RBC) [Entitic mass] 29.4 pg Normal 25.9-34.0 [facility] Comment on above: Performed By: #### C BC #### [facility] [address] [place] [address] Dr. Cipriano Patton MCHC (RBC) [Mass/Vol] 32.2 g/dL Normal 29.9-35.2 [facility] Comment on above: Performed By: #### C BC #### [facility] [address] [place] [address] Dr. Cipriano Patton MCV (RBC) [Entitic vol] 91.2 fL Normal 80.0-94.0 [facility] Comment on above: Performed By: #### C BC #### [facility] [address] [place] [address] Dr. Cipriano Patton MONO # 0.9 103/ul Critically high 0.3-0.8 [facility] Comment on above: Performed By: #### C BC #### [facility] [address] [place] [address] Dr. Cipriano Patton Monocytes/100 WBC (Bld) 15.8 % Critically high 1.7-12. 0 [facility] Comment on above: Performed By: #### C BC #### [facility] [address] [place] [address] Dr. Cipriano Patton NEUT # 2.9 103/ul Normal 1.4-6.5 [facility] Comment on above: Performed By: #### C BC #### [facility] [address] [place] [address] Dr. Cipriano Patton Neutrophils/100 WBC (Bld) 52.7 % Normal 43.0-75.0 [facility] Comment on above: Performed By: #### C BC #### [facility] [address] [place] [address] Dr. Cipriano Patton Platelet mean volume (Bld) [Entitic vol] 9.0 fL Critically low 9.5-13.5 [facility] Comment on above: Performed By: #### C BC #### [facility] [address] [place] [address] Dr. Cipriano Patton PLT 211 103/ul Normal 150-450 [facility] Comment on above: Performed By: #### C BC #### [facility] [address] [place] [address] Dr[address] Cipriano Patton RBC 4.66 106/ul Critically low 4.70-6.10 [facility] Comment on above: Performed By: #### C BC #### [facility] [address] [address] [address] Cipriano Patton WBC 5.5 103/ul Normal 4.0-11.0 [facility] Comment on above: Performed By: #### C BC #### [facility] [address] [address] [address] Cipriano Patton PROF CHEM 8 (BAS METB)on Anion gap [Moles/Vol] 10.7 mmol/L Normal [facility] Comment on above: Performed By: #### B MP #### [facility] [address] [place] [address] Dr. Cipriano Patton Calcium [Mass/Vol] 8.5 mg/dL Normal 8.5-10.1 [facility] Comment on above: Performed By: #### B MP #### [facility] [address] [place] [address] Dr. Cipriano Patton Chloride [Moles/Vol] 105 mmol/L Normal 98-107 [facility] Comment on above: Performed By: #### B MP #### [facility] [address] [place] [address] Dr. Cipriano Patton CO2 [Moles/Vol] 29.4 mmol/L Normal 21.0-32.0 [facility] Comment on above: Performed By: #### B MP #### [facility] [address] [place] [address] Dr. Cipriano Patton Creatinine [Mass/Vol] 0.90 mg/dL Normal 0.70-1.30 [facility] Comment on above: Performed By: #### B MP #### [facility] [address] [place] [address] Dr. Cipriano Patton EGFR-AF LITHUANIAN >60 Normal >=60 [facility] Comment on above: Performed By: #### B MP #### [facility] [address] [place] [address] Dr. Cipriano Patton EGFR-NON AF LITHUANIAN >60 Normal >=60 [facility] Comment on above: Performed By: #### B MP #### [facility] [address] [place] [address] Dr. Cipriano Patton Glucose [Mass/Vol] 82 mg/dL Normal 74-106 [facility] Comment on above: Performed By: #### B MP #### [facility] [address] [place] [address] Dr. Cipriano Patton Potassium [Moles/Vol] 4.1 mmol/L Normal 3.5-5.1 [facility] Comment on above: Performed By: #### B MP #### [facility] [address] [place] [address] Dr. Cipriano Patton Sodium [Moles/Vol] 141 mmol/L Normal 136-145 [facility] Comment on above: Performed By: #### B MP #### [facility] [address] [place] [address] Dr. Cipriano Patton Urea nitrogen [Mass/Vol] 16.0 mg/dL Normal 7.0-18.0 [facility] Comment on above: Performed By: #### B MP #### [facility] [address] [place] [address] Dr. Cipriano Patton Urea nitrogen/Creatinine [Mass ratio] 17.8 mg/mg Normal [facility] Comment on above: Performed By: #### B MP #### [facility] [address] [place] [address] Dr. Cipriano Patton Covid-19 PCR ([facility])on 03-21 SARS-CoV-2 (COVID-19) RNA CAIT+probe Ql (Unsp spec) Detected Critically abnormal NOT DETECTED [facility] Comment on above: Result Comment: This test is not yet approved or cleared by the [place] FDA. When there are no FDA-approved or cleared tests available, and other criteria are met, FDA can make tests available under an emergency access mechanism called an Emergency Use Authorization (EUA). The EUA for this test is supported by the Fund Manager of Health and Human Service's (HHS's) declaration [...] longer be used). Performed By: #### C [facility] #### [facility] [address] [address] [address] Cipriano Patton VC COMP CONSULTATIONon 03-28 VC COMP CONSULTATION Patient: KENNEDY KONG Exam Date: 03/28/2022 : 1935 Gender:M Ordering : DR NESTOR ESTRELLA D.O. Admission #: [id number] Family : Order #: [id number] CLICK HERE TO VIEW EXAM RADIOLOGY REPORT [...] hours. The patient is a wolff in [facility]. The patient denies any signs and symptoms [...] MD on 03/28/2022 at 10:14 Normal [facility] VC VENOUS REFLUX ROBERTO LMTon 0 03-28-2022 VC VENOUS REFLUX ROBERTO LMT Patient: KENNEDY KONG Exam Date: 03/28/2022 : 1935 Gender:M Ordering : DR NESTOR ESTRELLA D.O. Admission #: [id number] Family : Order #: [id number] CLICK HERE TO VIEW EXAM RADIOLOGY REPORT [...] compression in area of thrombus Flow: Normal Senior Product Analyst: Dist/med calf 2.2mm, 0.7s reflux; mid/med calf [...] or chronic thrombus Compressibility: Normal Flow: Normal Senior Product Analyst: Mid/med 2.6mm, no reflux; dist/med 3.3mm, no reflux Tech Note: Patent varicose vein prox/med 2.3mm, without reflux. Varicose vein mid/ant 2.7mm, without reflux. Hypoechoic avascular structure lt pop fossa that measures 3.1 x 4.2 x 0.9 cm CONCLUSION: 1. Teth-sn-hxdvqpyc right great saphenous vein venous insufficiency without associated dilatation 2. Small bilateral incompetent varicose veins 3. 4.2 cm left popliteal cyst Dictated by: Aubrey Vee MD on 03/28/2022 at 09:23 Approved by: Aubrey Vee MD on 03/28/2022 at 09:26 Normal [facility] US MILADIS DOP LEG LTon 02-08-20 22 [...] by: AUBREY CHEUNG Date: 2022-02-07 17:34 Normal [facility] ANES Lisa 11-04-2019 ANES POST HNO ID: [id number] Author: Luigi Snyder Service: Anesthesiology Author Type: [...] 04, 2019 TIME: 3:21 PM PAGER/CONTACT #: [phone] [facility] ANES PREOPon 11-04-2019 ANES PREOP HNO ID: [id number] Author: Seymour Buenrostro Service: Anesthesiology Author Type: [...] ASA Monitors Pain Management Plan: ROOT Protocol [facility] Chart Review ACTIVE PROBLEM LIST Colonic Stricture (Hcc) PAST MEDICAL HISTORY Diagnosis Date - Basal cell cancer - Colon cancer (HCC) PAST SURGICAL HISTORY Procedure Laterality Date - COLECTOMY PART W/ANASTOMOSIS 1990 followed with chemotx and radiation - COLONSCOPY SCREENING HIGH RISK - EXCISION HYDROCELE UNILAT 2006 left - EXPLORATORY OF ABDOMEN 2009 Laparotomy, exp for obstruction with partial bowel [...] mouth once daily. Inpatient medications reviewed in [facility]. I have interviewed and examined the [...] 04, 2019 TIME: 2:13 PM PAGER/CONTACT #: [phone] [facility] HISTORY PHYSICALon 0 HISTORY PHYSICAL HNO ID: [id number] Author: Avel Camacho Service: Colorectal Author Type: [...] November 04, 2019 TIME: 1:08 PM PAGER: [facility] PT EDon 11-04-2019 PT ED HNO ID: [id number] Author: Elizabeth (Darlene) DARLENE Patel Service: Nursing Author Type: Registered Nurse Type: [...] None Electronically Signed By: Elizabeth Patel RN [facility] PT ED HNO ID: [id number] Author: Harini RomeroRn) DARLENE Yusuf Service: ? Author Type: Registered Nurse Type: [...] None Electronically Signed By: Harini Yusuf RN [facility] NURSING PROGon 10-08-2019 NURSING PROG HNO ID: [id number] Author: Nathaly RomeroRnSusan Kraft RN Service: Nursing Author Type: Registered Nurse [...] Kraft RN October 08, 2019 8:45 AM Normal [facility] HOSPon 09-24-2019 HOSP Patient:Dustin Kong MRN: Height:5' [...] notes entered within the past 30 days [facility] ABDOMEN 1 VWon 03-31-2019 ABDOMEN 1 [facility] Department of Radiology [address] [place] [id number] Patient Name: KENNEDY KONG : 1935 Sex: M Age: Race: White Pt. Location: 230 Patient Status: Ordered Date: 03/31/2019 5:00:00 AM Completed Date: 03/31/2019 11:46 AM Requesting Provider: GABRIEL PEREZ Attending Provider: GABRIEL PEREZ Report Copy To: Signs & Symptoms: R10.9 Unspecified abdominal pain I10 History: [place] THIS IS FOR A COLONOSCOPY FOR STRICTURE Comments: , THIS IS FOR A COLONOSCOPY FOR STRICTURE , Appointment Date: 03/31/2019 , Appointment Time: 8:30AM , THIS IS FOR A COLONOSCOPY FOR STRICTURE , Appointment Date: 03/31/2019 , Appointment Time: 8:30AM , , , Ordering Provider - YASEEN ALASTAL , Exam: ABDOMEN 1 VW ABDOMEN 1 VW 03/31/2019 11:46 AM EDT [...] documentation Electronically signed by:Kaleb Perry. Transcribed by: [email or web address], User Resident: Electronically Signed by: KALEB PERRY @ 03/31/2019 12:59 PM Normal [facility] Comment on above: Order Comment: , ROMELIA S IS FOR A COLONOSCOPY FOR STRICTURE , Appointment Date: 03/31/2019 , Appointment Time: 8:30AM , THIS IS FOR A COLONOSCOPY FOR STRICTURE , Appointment Date: 03/31/2019 , Appointment Time: 8:30AM , , , Ordering Provider - MARILEE JIMÉNEZ , Vital Signs Date Time Vital Sign Value Performing Clinician Talib dyer 11-20-2023 09:110500 Body height 180.3 cm Adriel Morgan DO Work Phone: [facility] 11-20-2023 09:110500 Body mass index (BMI) [Ratio] 25.94 kg/m2 Adriel Morgan DO Work Phone: [facility] 11-20-2023 09:110500 Body weight 84.37 kg Adriel Morgan DO Work Phone: [facility] 11-20-2023 09:11-0500 Diastolic blood pressure 60 mm[Hg] Adriel Morgan DO Work Phone: [facility] 11-20-2023 09:11-0500 Heart rate 66 /min Adriel Morgan DO Work Phone: [facility] 11-20-2023 09:11-0500 Systolic blood pressure 114 mm[Hg] Adriel Morgan DO Work Phone: [facility] 11-07-2023 08:30-0500 Body height 180.34 cm Nestor Ball Other [facility] Other 11-07-2023 08:30-0500 Body mass index (BMI) [Ratio] 25.33 kg/m2 Nestor Ball Other [facility] Other 11-07-2023 08:30-0500 Body weight 82.37 kg Nestor Ball Other [facility] Other 11-07-2023 08:30-0500 Diastolic blood pressure 73 mm[Hg] Nestor Ball Other [facility] Other 11-07-2023 08:30-0500 Respiratory rate 12 /min Nestor Ball Other [facility] Other 11-07-2023 08:30-0500 Systolic blood pressure 113 mm[Hg] Nestor Ball Other [facility] Other 10-10-2023 16:00-0500 Body temperature 98.1 [degF] Josafat Sun MD Work Phone: [facility] 10-10-2023 16:00-0500 Diastolic blood pressure 76 mm[Hg] Josafat Sun MD Work Phone: [facility] 10-10-2023 16:00-0500 Heart rate 68 /min Josafat Sun MD Work Phone: [facility] 10-10-2023 16:00-0500 Respiratory rate 17 /min Josafat Sun MD Work Phone: [facility] 10-10-2023 16:00-0500 SaO2% (BldA) [Mass fraction] 99 % Josafat Sun MD Work Phone: [facility] 10-10-2023 16:00-0500 Systolic blood pressure 149 mm[Hg] Josafat Sun MD Work Phone: [facility] 10-09-2023 22:34-0500 Body height 177.8 cm Josafat Sun MD Work Phone: [facility] 10-07-2023 14:30-0500 Body height 180.34 cm Imad Asaad Other [facility] Other 10-07-2023 14:30-0500 Body mass index (BMI) [Ratio] 25.24 kg/m2 Imad Asaad Other [facility] Other 10-07-2023 14:30-0500 Body weight 82.1 kg Imad Asaad Other [facility] Other 10-07-2023 14:30-0500 Diastolic blood pressure 63 mm[Hg] Imad Asaad Other [facility] Other 10-07-2023 14:30-0500 Systolic blood pressure 139 mm[Hg] Imad Asaad Other [facility] Other 10-04-2023 08:45-0500 Body height 180.34 cm Nestor Ball Other [facility] Other 10-04-2023 08:45-0500 Body mass index (BMI) [Ratio] 25.35 kg/m2 Nestor Ball Other [facility] Other 10-04-2023 08:45-0500 Body weight 82.46 kg Nestor Ball Other [facility] Other 10-04-2023 08:45-0500 Diastolic blood pressure 65 mm[Hg] Nestor Ball Other [facility] Other 10-04-2023 08:45-0500 Respiratory rate 12 /min Nestor Ball Other [facility] Other 10-04-2023 08:45-0500 Systolic blood pressure 133 mm[Hg] Nestor Ball Other [facility] Other 09-04-2023 08:45-0500 Body height 180.34 cm Nestor Ball Other [facility] Other 09-04-2023 08:45-0500 Body mass index (BMI) [Ratio] 26.11 kg/m2 Nestor Ball Other [facility] Other 09-04-2023 08:45-0500 Body weight 84.91 kg Nestor Ball Other [facility] Other 09-04-2023 08:45-0500 Diastolic blood pressure 71 mm[Hg] Nestor Ball Other [facility] Other 09-04-2023 08:45-0500 Respiratory rate 12 /min Nestor Ball Other [facility] Other 09-04-2023 08:45-0500 Systolic blood pressure 116 mm[Hg] Nestor Ball Other [facility] Other 08-21-2023 09:30-0400 Body height 180.34 cm Nestor Ball Other [facility] Other 08-21-2023 09:30-0400 Body mass index (BMI) [Ratio] 25.46 kg/m2 Nestor Ball Other [facility] Other 08-21-2023 09:30-0400 Body weight 82.83 kg Nestor Ball Other [facility] Other 08-21-2023 09:30-0400 Diastolic blood pressure 61 mm[Hg] Nestor Ball Other [facility] Other 08-21-2023 09:30-0400 Respiratory rate 12 /min Nestor Ball Other [facility] Other 08-21-2023 09:30-0400 Systolic blood pressure 115 mm[Hg] Nestor Ball Other [facility] Other 08-02-2023 09:45-0400 Body height 180.34 cm Nestor Ball Other [facility] Other 08-02-2023 09:45-0400 Body mass index (BMI) [Ratio] 25.86 kg/m2 Nestor Ball Other [facility] Other 08-02-2023 09:45-0400 Body weight 84.1 kg Nestor Ball Other [facility] Other 08-02-2023 09:45-0400 Diastolic blood pressure 64 mm[Hg] Nestor Ball Other [facility] Other 08-02-2023 09:45-0400 Respiratory rate 12 /min Nestor Ball Other [facility] Other 08-02-2023 09:45-0400 SaO2% (BldA) [Mass fraction] 96 % Nestor Ball Other [facility] Other 08-02-2023 09:45-0400 Systolic blood pressure 119 mm[Hg] Nestor Ball Other [facility] Other 07-08-2023 08:30-0400 Body height 180.34 cm Nestor Ball Other [facility] Other 07-08-2023 08:30-0400 Body mass index (BMI) [Ratio] 26.02 kg/m2 Nestor Ball Other [facility] Other 07-08-2023 08:30-0400 Body weight 84.64 kg Nestor Ball Other [facility] Other 07-08-2023 08:30-0400 Diastolic blood pressure 78 mm[Hg] Nestor Ball Other [facility] Other 07-08-2023 08:30-0400 Respiratory rate 12 /min Nestor Ball Other [facility] Other 07-08-2023 08:30-0400 Systolic blood pressure 135 mm[Hg] Nestor Ball Other [facility] Other 06-07-2023 14:15-0400 Body height 180.34 cm Nestor Ball Other [facility] Other 06-07-2023 14:15-0400 Body mass index (BMI) [Ratio] 26.72 kg/m2 Nestor Ball Other [facility] Other 06-07-2023 14:15-0400 Body weight 86.91 kg Nestor Ball Other [facility] [employer] Other 06-07-2023 14:15-0400 Diastolic blood pressure 71 mm[Hg] Nestor Ball Other [facility] Other 06-07-2023 14:15-0400 Respiratory rate 12 /min Nestor Ball Other [facility] Other 06-07-2023 14:15-0400 Systolic blood pressure 121 mm[Hg] Nestor Ball Other [facility] Other 05-02-2023 11:57-0400 Body height 177.8 cm Nestor E Ball Work Phone: [facility] [employer] [address] DO Work Phone: 05-02-2023 11:57-0400 Body mass index (BMI) [Ratio] 26.54 kg/m2 Nestor E Ball Work Phone: [facility] [employer] DO Work Phone: 05-02-2023 11:57-0400 Body surface area Derived from formula 2.02 m2 Nestor E Ball Work Phone: [facility] [employer] [address] DO Work Phone: 05-02-2023 11:57-0400 Body weight 83.92 kg Nestor E Ball Work Phone: [facility] 250 DO Work Phone: 05-02-2023 11:57-0400 Diastolic blood pressure 60 mm[Hg] Nestor E Ball Work Phone: [facility] DO Work Phone: 05-02-2023 11:57-0400 Heart rate 60 /min Nestor E Ball Work Phone: [facility] [employer] 250 DO Work Phone: 05-02-2023 11:57-0400 Systolic blood pressure 112 mm[Hg] Nestor E Ball Work Phone: [facility] [facility] DO Work Phone: 04-23-2023 08:53-0400 Body temperature 97.8 [degF] DO Nestor Ball Work Phone: [facility] 04-23-2023 08:53-0400 Diastolic blood pressure 53 mm[Hg] DO Nestor Ball Work Phone: [facility] 04-23-2023 08:53-0400 Heart rate 70 /min DO Nestor Ball Work Phone: [facility] 04-23-2023 08:53-0400 Respiratory rate 16 /min DO Nestor Ball Work Phone: [facility] 04-23-2023 08:53-0400 SaO2% (BldA) [Mass fraction] 97 % DO Nestor Ball Work Phone: [facility] 04-23-2023 08:53-0400 Systolic blood pressure 91 mm[Hg] DO Nestor Ball Work Phone: [facility] 04-23-2023 04:43-0400 Body weight 83.1 kg DO Nestor Ball Work Phone: [facility] 04-22-2023 10:44-0400 Body height 177.8 cm DO Nestor Ball Work Phone: [facility] 04-12-2023 13:15-0400 Body height 180.34 cm Nestor Ball Other [facility] [employer] Other 04-12-2023 13:15-0400 Body mass index (BMI) [Ratio] 26.41 kg/m2 Nestor Ball Other [facility] [employer] Other 04-12-2023 13:15-0400 Body weight 85.91 kg Nestor Ball Other [facility] Other 04-12-2023 13:15-0400 Diastolic blood pressure 72 mm[Hg] Nestor Ball Other [facility] Other 04-12-2023 13:15-0400 Respiratory rate 12 /min Nestor Ball Other [facility] Other 04-12-2023 13:15-0400 Systolic blood pressure 121 mm[Hg] Nestor Ball Other [facility] Other 02-06-2023 12:30-0400 Body height 180.34 cm Nestor Ball Other [facility] Other 02-06-2023 12:30-0400 Body mass index (BMI) [Ratio] 26.39 kg/m2 Nestor Ball Other [facility] Other 02-06-2023 12:30-0400 Body weight 85.82 kg Nestor Ball Other [facility] Other 02-06-2023 12:30-0400 Diastolic blood pressure 80 mm[Hg] Nestor Ball Other [facility] Other 02-06-2023 12:30-0400 Respiratory rate 12 /min Nestor Ball Other [facility] Other 02-06-2023 12:30-0400 Systolic blood pressure 132 mm[Hg] Nestor Ball Other [facility] Other 01-14-2023 15:51-0400 Body height 177.8 cm Avel Camacho MD Work Phone: [facility] 01-14-2023 15:51-0400 Body temperature 97.5 [degF] Avel Camacho MD Work Phone: [facility] 01-14-2023 15:51-0400 Body weight 83.46 kg Avel Camacho MD Work Phone: [facility] 01-14-2023 15:51-0400 Diastolic blood pressure 79 mm[Hg] Avel Camacho MD Work Phone: [facility] 01-14-2023 15:51-0400 Heart rate 65 /min Avel Camacho MD Work Phone: [facility] 01-14-2023 15:51-0400 SaO2% (BldA) [Mass fraction] 97 % Avel Camacho MD Work Phone: [facility] 01-14-2023 15:51-0400 Systolic blood pressure 165 mm[Hg] Avel Camacho MD Work Phone: [facility] 12-31-2022 11:30-0400 Body height 180.34 cm Nestor Ball Other [facility] Other 12-31-2022 11:30-0400 Body mass index (BMI) [Ratio] 26.27 kg/m2 Nestor Ball Other [facility] Other 12-31-2022 11:30-0400 Body weight 85.46 kg Nestor Ball Other [facility] Other 12-31-2022 11:30-0400 Diastolic blood pressure 70 mm[Hg] Nestor Ball Other [facility] Other 12-31-2022 11:30-0400 Respiratory rate 12 /min Nestor Ball Other [facility] Other 12-31-2022 11:30-0400 Systolic blood pressure 137 mm[Hg] Nestor Ball Other [facility] Other Encounters Encounter Date Encounter Type Care Provider Facility Start: 12-16-2023 ambulatory Kylie Jordan ty:[facility] Start: 12-11-2023 ambulatory Kylie Jordan ty:[facility] Start: 12-05-2023 ambulatory Kylie Jordan ty:CD:[id number] Start: 11-20-2023 End: 11-20-2023 Office outpatient visit 15 minutes Adriel Morgan DO Work Phone: [facility] Comment on above: Atherosclerosis of n ative coronary artery, unspecified whether angina present, unspecified whether [place] or transplanted heart; Stented coronary artery; Non-ST elevation myocardial infarction (NSTEMI) ([facility] Hyperlipidemia, unspecified hyperlipidemia type; History of colon cancer; Never smoked any substance; Malignant neoplasm of urinary bladder, unspecified site ([facility]) Start: 11-07-2023 End: 11-07-2023 ambulatory Nestor Estrella Other [facility] Other Start: 11-07-2023 Office outpatient vi sit 15 minutes Nestor [facility] Start: 10-28-2023 End: 10-28-2023 ambulatory Imad Asaad Other [facility] Other Start: 10-28-2023 Telephone encounter Imad Asaad [facility] Start: 10-23-2023 End: 10-23-2023 ambulatory Nestor Estrella Facility:[facility] Start: 10-23-2023 End: 10-23-2023 ambulatory DO Nestor Estrella Work Phone: [facility] Work Phone: Start: 10-23-2023 End: 10-23-2023 Patient encounter procedure DO Nestor Estrella Work Phone: [facility]-CT Scan [facility] [place] Work Phone: Start: 10-10-2023 End: 10-10-2023 Emergency department patient visit Josafat Sun MD Work Phone: [facility] Start: 10-07-2023 End: 10-07-2023 ambulatory Imad Asaad Other [facility] Other Start: 10-07-2023 Office outpatient ne w 45 minutes Imad Asaad [facility] Start: 10-04-2023 End: 10-04-2023 ambulatory Nestor Ball Other [facility] Other Start: 10-04-2023 Office outpatient vi sit 15 minutes Nestor Ball [facility] Start: 09-04-2023 End: 09-04-2023 ambulatory Nestor Ball Other [facility] Other Start: 09-04-2023 Office outpatient vi sit 15 minutes Nestor Ball [facility] Start: 09-04-2023 Telephone encounter Nestor Ball [facility] Start: 08-21-2023 End: 08-21-2023 ambulatory Nestor Ball Other [facility] Other Start: 08-21-2023 Office outpatient vi sit 15 minutes Nestor Ball [facility] Start: 08-21-2023 Telephone encounter Nestor Ball FP [facility] Start: 08-09-2023 End: 08-09-2023 ambulatory Nestor Ball Other [facility] Other Start: 08-09-2023 Telephone encounter Nestor Ball FP [facility] Start: 08-06-2023 End: 08-06-2023 ambulatory Nestor Ball Other [facility] Other Start: 08-06-2023 Telephone encounter Nestor Ball FP [facility] Start: 08-02-2023 End: 08-02-2023 ambulatory Nestor Ball Other [facility] Other Start: 08-02-2023 Office outpatient vi sit 15 minutes Nestor Ball [facility] Start: 07-31-2023 End: 07-31-2023 ambulatory Nestor Ball Other [facility] Other Start: 07-31-2023 Telephone encounter Nestor Estrella [facility] Start: 07-10-2023 End: 07-10-2023 ambulatory Nestor Estrella Other [facility] Other Start: 07-10-2023 Telephone encounter Nestor Estrella FP [facility] Start: 07-08-2023 Chart Update eNstor soriano Work Phone: [facility] 250 DO Work Phone: Start: 07-08-2023 End: 07-08-2023 ambulatory Nestor Estrella Other [facility] Other Start: 07-08-2023 Patient encounter procedure Nestor Estrella [facility] Start: 07-08-2023 Telephone encounter Nestor Estrella [facility] Start: 06-25-[address] Adriel Thapa [facility] Facility:[id number] Start: 06-17-2023 ambulatory Kylie Ramseyi ty:[facility] Start: 06-12-2023 ambulatory Kylie DIETRICH Facili ty:[facility] Start: 06-07-2023 End: 06-07-2023 ambulatory Nestor Estrella Other [facility] Other Start: 06-07-2023 Office outpatient vi sit 15 minutes Nestor Estrella [facility] Start: 06-06-2023 ambulatory Kylie Ramseyi ty:CD:[id number] Start: 05-16-2023 Rx Renewal Nestor soriano Work Phone: [facility] 250 DO Work Phone: Start: 05-14-2023 End: 05-15-2023 ambulatory Kylie DIETRICH Facility:[facility] Start: 05-13-2023 ambulatory Kylie DIETRICH Facili ty:CD:[id number] Start: 05-10-2023 End: 05-11-2023 ambulatory Kylie DIETRICH Facility:[facility] Start: 05-10-2023 End: 05-11-2023 ambulatory Kylie DIETRICH Facility:[facility] Start: 05-09-2023 End: 05-09-2023 ambulatory Nestor Estrella Other [facility] Other Start: 05-09-2023 Telephone encounter Netsor Estrella FP [facility] Start: 05-02-2023 Telephone encounter Nestor SINGH [facility] Start: 05-02-2023 Office outpatient vi sit 15 minutes Nestor Darvin Estrella Work Phone: [facility] 250 DO Work Phone: Start: 05-02-2023 End: 05-02-[address] Nestor Estrella [facility] [employer] Other Start: 04-22-2023 Telephone encounter Nestor SINGH [facility] Start: 04-22-2023 End: 04-23-2023 Evaluation and management of inpatient Nestor Estrella Facility:[facility] Start: 04-22-2023 End: 04-23-2023 Evaluation and management of inpatient DO Nestor Estrella Work Phone: [facility] [place] [facility] Work Phone: Start: 04-22-2023 End: 04-22-[address] Adriel Morgan [facility] [employer] Other Start: 04-12-2023 End: 04-12-2023 ambulatory Nestor Estrella Other [facility] Medical Other Start: 04-12-2023 Office outpatient vi sit 15 minutes Nestor Estrella [facility] Start: 04-08-2023 End: 04-09-2023 ambulatory Kylie DIETRICH Facility:[facility] Start: 04-08-2023 End: 04-08-2023 Patient encounter procedure Kylie DIETRICH [facility] Start: 03-19-2023 End: 03-19-2023 ambulatory Nestor Estrella Other [facility] Other Start: 03-19-2023 Telephone encounter Nestor SINGH [facility] Start: 03-11-2023 End: 03-12-2023 ambulatory Kylie DIETRICH Facility:[facility] [place] Start: 02-06-2023 End: 02-06-2023 ambulatory Nestor Estrella Other [facility] Other Start: 02-06-2023 Office outpatient vi sit 15 minutes Nestor Estrella [facility] Start: 02-06-2023 Telephone encounter Nestor SINGH [facility] Start: 01-31-2023 End: 01-31-2023 ambulatory Nestor Estrella Other [facility] Other Start: 01-31-2023 Telephone encounter Nestor SINGH [facility] Start: 01-18-2023 End: 01-19-2023 ambulatory TASHA CHILDERS . Facility: Start: 01-14-2023 End: 01-14-2023 ambulatory AVEL CAMACHO Facility:[facility] Start: 01-14-2023 End: 01-14-2023 Patient encounter procedure Avel Camacho MD Work Phone: Colorectal Surgery Comment on above: Irregular bowel habi ts (Primary Dx) Start: 01-07-2023 Telephone encounter Nestor [facility] SINGH [facility] Start: 01-07-2023 End: 01-08-[address] KYLIE DIETRICH . [facility] [employer] Other Start: 12-31-2022 End: 12-31-2022 ambulatory Nestor Estrella Other [facility] Other Start: 12-31-2022 Office outpatient vi sit 25 minutes Nestor Estrella [facility] Start: 12-28-2022 ambulatory Kylie DIETRICH Facili ty:[facility] [place] Start: 12-27-2022 Telephone encounter Nestor SINGH [facility] Start: 12-27-2022 End: 12-28-[address] NESTOR ESTRELLA [facility] [employer] Other Start: 12-25-2022 End: 12-25-2022 ambulatory Reid Ann Other [facility] [employer] Other Start: 12-25-2022 Telephone encounter Reid Ann [facility] Start: 12-20-[address] KYLIE DIETRICH . Fac ility:[facility] Start: 12-12-[address] KYLIE DIETRICH . Fac ility:[facility] Start: 11-12-2022 End: 11-12-[address] KYLIE DIETRICH . Facility:[facility] Start: 11-04-2022 Evaluation and management of inpatient JIMMY ESTRELLA Facility:[facility] Start: 11-04-2022 End: 11-04-2022 Evaluation and management of inpatient [facility] Outside Imaging Ct Scan So Outside Imaging Second Opinion Start: 11-03-2022 End: 11-05-2022 Evaluation and management of inpatient LUKE Tiki RIKY Facility:[facility] Start: 11-03-2022 End: 11-03-[address] HANG OHARA Facility:[facility] Start: 11-02-2022 End: 11-02-2022 Patient encounter procedure Kylie DIETRICH [facility] Start: 10-04-2022 End: 10-04-[address] KYLIE DIETRICH . Facility:[facility] Start: 09-28-2022 End: 09-29-[address] NESTOR ESTRELLA Facility:[facility] Start: 09-28-2022 End: 09-28-2022 Patient encounter procedure Kylie DIETRICH [facility] Start: 09-19-2022 End: 09-19-2022 Patient encounter procedure Marina Hooper [facility] Start: 08-23-2022 End: 08-23-[address] KYLIE DIETRICH . Facility:[facility] Start: 08-08-2022 End: 08-08-2022 Patient encounter procedure BRANDO BARRAGAN [facility] Start: 07-02-2022 End: 07-03-[address] NESTOR ESTRELLA Facility:[facility] Start: 06-11-2022 End: 06-11-[address] KYLIE DIETRICH . Facility:[facility] Start: 06-04-2022 End: 06-04-2022 Patient encounter procedure Kylie DIETRICH [facility] Start: 04-30-2022 End: 04-30-[address] KYLIE DIETRICH . Facility:[facility] Start: 04-25-2022 End: 04-25-2022 Patient encounter procedure Marina Hooper [facility] Start: 04-09-2022 End: 04-09-[address] NESTOR ESTRELLA Facility:[facility] Start: 04-06-2022 End: 04-06-[address] NESTOR ESTRELLA Facility:[facility] Start: 04-02-2022 End: 04-02-[address] KYLIE DIETRICH . Facility:[facility] Start: 03-30-2022 End: 03-30-2022 Patient encounter procedure Kylie DIETRICH [facility] Start: 03-28-2022 End: 03-29-[address] NESTOR ESTRELLA Facility:[facility] Start: 03-05-2022 End: 03-05-[address] KYLIE DIETRICH . Facility:[facility] Start: 03-02-2022 End: 03-02-2022 Patient encounter procedure Kylie DIETRICH [facility] Start: 02-07-2022 End: 02-08-[address] NESTOR ESTRELLA Facility:[facility] Start: 01-08-2022 End: 01-08-2022 Patient encounter procedure Kylie DIETRICH [facility] [place] Start: 05-09-2017 Ambulatory ADRIEL RIOS [facility] Ambulatory Start: 05-06-2017 End: 05-10-2017 Ambulatory ADRIEL RIOS [facility] Ambulato ry Procedures Date Procedure Procedure Detail Performing Clinician Start: 10-23-2023 CT of small intestine D O Nestor Estrella Work Phone: Start: 10-10-2023 Assay of lactate Sam Garcia MD Work Phone: Start: 10-09-2023 Assay of lipase Erick Read MD Work Phone: Start: 10-09-2023 CBC AND ELECTRONIC DIFF Nestor Read MD Work Phone: Start: 10-09-2023 Complete blood count with white cell differential, automated Nestor Read MD Work Phone: Start: 10-09-2023 Hepatic function panel Nestor Read MD Work Phone: Start: 10-09-2023 LT BLUE TOP TUBE Damon Read MD Work Phone: Start: 10-09-2023 MINT GREEN TOP TUBE Eleuterio Read MD Work Phone: Start: 06-25-2023 Echocardiography Damon in [facility] Work Phone: Start: 04-22-2023 CL LHC & COR Angio DO B enjamin Ball Work Phone: Start: 04-22-2023 CL Stent 1st Vessel CX CASSIDY DO Nestor [facility] Work Phone: Start: 11-04-2022 Ct abdomen & pelvis w/contrast material Nandini Patton MD Work Phone: Start: 12-13-2020 Cystoscopy and laser destruction of bladder lesion Kylie DIETRICH Start: 05-26-2020 Transurethral resect ion of bladder neoplasm Kylie DIETRICH Start: 10-21-2001 Hydrocelectomy Kylie DIETRICH Cardiac catheterization Benj wojciech Estrella Work Phone: Cataract (disorder) Kylie DIETRICH [...] tumor removal; Partial resection of colon B enalida Darvin Estrella Work Phone: Plan of Treatment Date Care Activity Detail Author Start: 01-18-2033 DTaP/Tdap/Td Vaccine s (2 - Td or Tdap) DTaP/Tdap/Td Vaccines (2 - Td or Tdap) [facility] Start: 01-18-2033 Tetanus vaccination TETANUS [facility] Start: 10-09-2024 Diabetes mellitus screening Diabetes Screening [facility] Start: 09-28-2024 End: 09-28-2024 Patient encounter procedure 09/28/2024 2:00 PM EST Office [facility] [address] [place] [address] Memo Mccall MD [address] [place] [address] [facility] [place] Start: 05-20-2024 End: 05-20-2024 Patient encounter procedure 05/20/2024 9:50 AM EDT Office Visit [facility] [address] [facility] [address] [place] [address] Adriel Morgan DO [address] [facility] [address] [place] [address] [facility] Start: 11-20-2023 FUV, Provider: Adriel Morgan, Status: Pen, Time: 9:20 AM FUV, Provider: Adriel Morgan, Status: Pen, Time: 9:20 AM [facility] [address] DO Work Phone: Start: 06-25-2023 ECHO, Provider: DANIELLA NUNEZ [facility] ULTRASOUND 01,[id number], Status: Pen, Time: 12:30 PM ECHO, Provider: TANNER [facility] ULTRASOUND 01,[id number], Status: Pen, Time: 12:30 PM [facility] [address] DO Work Phone: Start: 06-21-2023 COVID-19 VACCINE ( season) COVID-19 VACCINE ( season) [facility] Start: 06-21-2023 Influenza vaccination INFLUENZA VACC INE (#1) [facility] Start: 04-23-2023 [facility] Start: 04-22-2023 End: 04-22-2023 Referral to telecom sales consultant [facility] Start: 04-22-2023 Referral to cardiac rehabilitation program [facility] Start: 04-22-2023 Hospital admission [facility] Start: 10-21-2022 ADVANCE DIRECTIVE DISCUSSION ADVANCE DIRECTIVE DISCUSSION [facility] Start: 10-21-2022 DEPRESSION ASSESSMENT DEPRESSION ASS ESSMENT [facility] Start: 06-21-2022 Influenza vaccination INFLUENZA (#1) [facility] Start: 10-24-2018 Pneumococcal vaccination PNEUM OCOCCAL VACCINE SERIES (2 - PCV) [facility] Start: 10-24-2018 Pneumococcal Vaccine : 65+ Years (2 - PCV) Pneumococcal Vaccine: 65+ Years (2 - PCV) [facility] Start: 01-22-2015 DIABETES SCREEN DIABETES SCREEN [facility] Start: 2001 PNEUMOCOCCAL: 65+ (1 - PCV) PNEUMOCOCCAL: 65+ (1 - PCV) [facility] Start: 1986 SHINGRIX VACCINE (1 of 2) SHINGRIX VACCINE (1 of 2) [facility] Start: 1981 Screening for malign ant neoplasm of colon COLORECTAL CANCER SCREENING DISCUSSION [facility] Start: 1955 Urine microalbumin profile DTAP,TDAP,TD (1 - Tdap) [facility] Start: 1936 COVID-19 VACCINE (#1) COVID-19 VACCI NE (#1) [facility] Start: 1936 Lipid panel Lipid Panel [facility] Start: 1936 Medicare Annual Well ness Visit Medicare Annual Wellness Visit (AWV) [facility] Calprotectin [Mass/m ass] in Stool [facility] End: 10-09-2023 GOLD TOP TUBE [facility] Comment on above: Once for 1 Occurrenc es starting 10/09/2023 until 10/09/2023 End: 10-09-2023 LAVENDER TOP TUBE [facility] Comment on above: Once for 1 Occurrenc es starting 10/09/2023 until 10/09/2023 Patient Education Coronary Angio plasty (DC) Coronary Stenting (DC) Angina (DC) Chest Pain (DC) Drug Eluting Stents [facility] Work Phone: Patient referral [facility] Work Phone: End: 10-09-2023 RAINBOW DRAW [facility] Work Phone: Comment on above: One Time for 1 Occur rences starting 10/09/2023 until 10/09/2023 Immunizations Immunization Date Immunization Notes Care Provider Kaitlynn morejon 07-08-2023 influenza, high dose seasonal, preservative-free Nestor Estrella Other [facility] Other 01-18-2023 tetanus toxoid, reduced diphtheria toxoid, and acellular pertussis vaccine, adsorbed Nestor Estrella Work Phone: [facility] 250 DO Work Phone: 08-30-2022 COVID-19 Pfizer (Pediatric) Nestor Estrella Other [facility] Other 08-30-2022 Pfizer COVID-19 Vac Bivalent 30 MCG/0.3ML Intramuscular Suspension Nestor Estrella Work Phone: [facility] 250 DO Work Phone: 07-02-2022 Fluad Quadrivalent 0 .5 ML Intramuscular Prefilled Syringe Nestor Estrella Work Phone: [place] [address] DO Work Phone: 07-02-2022 influenza virus vaccine, split virus (incl. purified surface antigen) Nestor Estrella Other [facility] [employer] Other 07-02-2022 influenza virus vaccine, unspecified formulation Josafat Sun MD Work Phone: [facility] 01-19-2022 Comirnaty 30 MCG/0.3 ML Intramuscular Suspension Nestor Estrella Work Phone: [place] [address] DO Work Phone: 01-19-2022 COVID-19 Vaccine Pfizer - Documentation Purposes Only Nestor Estrella Other [facility] Other 10-01-2021 zoster vaccine recombinant Nestor Estrella Work Phone: [place] [address] DO Work Phone: 07-31-2021 diphtheria, tetanus toxoids and acellular pertussis vaccine, unspecified formulation Nestor Estrella Other [facility] Other 07-31-2021 influenza virus vaccine, split virus (incl. purified surface antigen) Nestor Estrella Other [facility] Other 07-27-2021 influenza, seasonal, injectable, preservative free Nestor Estrella Work Phone: [facility] 250 DO Work Phone: 06-09-2021 Pfizer-BioNTech COVID-19 Vacc 30 MCG/0.3ML Intramuscular Suspension Nestor Estrella Work Phone: [facility] 250 DO Work Phone: 04-14-2021 zoster vaccine recombinant Nestor Estrella Work Phone: [facility] 250 DO Work Phone: 12-02-2020 Pfizer-BioNTech COVID-19 Vacc 30 MCG/0.3ML Intramuscular Suspension Nestor Estrella Work Phone: [facility] 250 DO Work Phone: 11-10-2020 Pfizer-BioNTech COVID-19 Vacc 30 MCG/0.3ML Intramuscular Suspension Nestor [place] Sameer Work Phone: [facility] 250 DO Work Phone: 09-26-2020 bacillus calmette-blossom vaccine Kylie DIETRICH [facility] 09-12-2020 bacillus calmette-blossom vaccine Kylie DIETRICH [facility] 09-05-2020 bacillus calmette-blossom vaccine Kylie DIETRICH [facility] 08-29-2020 bacillus calmette-blossom vaccine Kylie DIETRICH [facility] 08-15-2020 bacillus calmette-blossom vaccine Kylie DIETRICH [facility] 08-08-2020 bacillus calmette-blossom vaccine Kylie DIETRICH [facility] 07-01-2020 influenza virus vaccine, split virus (incl. purified surface antigen) Nestor Estrella Other [facility] Other 08-03-2019 influenza, seasonal, injectable Nestor Estrella Work Phone[facility] Work Phone: 07-15-2019 influenza virus vaccine, split virus (incl. purified surface antigen) Nestor Estrella Other [facility] Other 07-15-2018 influenza virus vaccine, split virus (incl. purified surface antigen) Nestor Estrella Other [facility] Other 07-15-2018 Seasonal trivalent influenza vaccine, adjuvanted, preservative free Nestor Estrella Work Phone: [facility] [employer] DO Work Phone: 10-24-2017 pneumococcal polysaccharide vaccine, 23 valent Nestor Estrella Work Phone: [facility] [employer] [facility] DO Work Phone: 06-27-2016 influenza virus vaccine, split virus (incl. purified surface antigen) Nestor Estrella Other [facility] Other 06-27-2016 pneumococcal conjuga te vaccine, 13 valent Nestor Estrella Other [facility] [employer] Other 10-29-2013 zoster vaccine, live Erick Estrella Work Phone: [facility] [employer] [facility] DO Work Phone: Payers Date Payer Category Payer Self-pay [id number] 2022 Unknown 2016 Private Health Insurance AETNA A ETNA MEDICARE SUPPLEMENT [id number] 2016-Present [phone] [address] [address] [place] [address] Indemnity [id number] 2003 Medicare [id number] 2001 Medicare [id number] 1959 Medicare [id number] 1959 Private Health Insurance [facility] [id number] 1936 Unknown [id number] 2.16.840.1.637818.3.579. 2.594 1936 Unknown [id number] 2.16.840.1.321242.3.579. 2.594 1936 Unknown [id number] 2.16.840.1.100770.3.579. 2.593 1936 Unknown [id number] 2.16840.1.508913.3.579. 2.593 1936 Unknown [id number] 2.16.840.1.337028.3.579. 2.593 1936 Unknown [id number] 2.16840.1.756923.3.579. 2.593 1936 Unknown [id number] 2.16.840.1.529660.3.579. 2.593 1936 Unknown [id number] 2.16.840.1.942050.3.579. 2.593 1936 Unknown [id number] 2.16.840.1.788967.3.579. 2.593 1936 Unknown [id number] 2.16.840.1.214199.3.579. 2.593 1936 Unknown [id number] 2.16.840.1.052929.3.579. 2.593 1936 Unknown [id number] 2.16.840.1.532195.3.579. 2.593 1936 Unknown [id number] 2.16.840.1.376578.3.579. 2.593 1936 Unknown [id number] 2.16.840.1.193374.3.579. 2.593 1936 Unknown [id number] 2.16.840.1.619216.3.579. 2.593 1936 Unknown [id number] 2.16.840.1.291318.3.579. 2.593 1936 Unknown [id number] 2..840.1.719022.3.579. 2.593 1936 Unknown [id number] 2..840.1.988005.3.579. 2.593 1936 Unknown [id number] 2.840.1.074668.3.579. 2.593 1936 Unknown [id number] 2.840.1.900175.3.579. 2.593 1936 Unknown [id number] 2.840.1.439338.3.579. 2.593 1936 Unknown [id number] 2.840.1.326777.3.579. 2.1068 1936 Unknown [id number] 2.840.1.604804.3.579. 2.356 1936 Unknown [id number] 2.840.1.029987.3.579. 2.356 1936 Unknown [id number] 2.16.840.1.276795.3.579. 2.356 1936 Unknown [id number] 2.840.1.386210.3.579. 2.727 1936 Unknown [id number] 2.840.1.056745.3.579. 2.727 1936 Unknown [id number] 2.16.840.1.694337.3.579. 2.727 1936 Unknown [id number] 2.16.840.1.861697.3.579. 2.727 1936 Unknown [id number] 2.16.840.1.808241.3.579. 2.727 1936 Unknown [id number] 2.16.840.1.615531.3.579. 2.727 1936 Unknown [id number] 2.16.840.1.858964.3.579. 2.727 1936 Unknown [id number] 2.16.840.1.111430.3.579. 2.727 1936 Unknown [id number] 2.16.840.1.461004.3.579. 2.72 1936 Unknown [id number] 2.16.840.1.183473.3.579. 2.72 1936 Unknown [id number] 2.16.840.1.949712.3.579. 2.727 Unknown [id number] 2.16.840.1.199763.3.579. 2.531 Unknown [id number] 2.16.840.1.405525.3.579. 2.531 Social History Date Type Detail Facility Start: 09-01-2021 End: 11-04-2022 Tobacco smoking status Never smoked tobacco (finding) [facility] Start: 11-04-2022 End: 11-20-2023 Sex Assigned At Male [facility] Start: 01-23-2012 End: 11-04-2022 Tobacco use and exposure Smokeless tobacco non-user [facility] Work Phone: Start: 01-14-2023 End: 11-20-2023 Alcohol intake Current drinker of alcohol (finding) [facility] Start: 01-14-2023 Alcohol Comment 1/5 of whiskey every 6 months [facility] Start: 1936 Sex Assigned At Not on file [facility] Start: 1936 Sex Assigned At Male F [facility] Start: 11-04-2022 End: 11-20-2023 No illicit drug use No illicit drug use [facility] 250 DO Work Phone: Start: 11-04-2022 Alcohol intake Lifetime non-d yu (finding) [facility] Start: 11-20-2023 Alcohol Comment beer [facility] Work Phone: Start: 11-10-2023 End: 11-20-2023 Exposure to SARS-CoV-2 (event) Not sure [facility] Medical Equipment Procedure Code Equipment Code Equipment Origin al Text Equipment Identifier Dates CL STENT GLENNY FRONTIER 3.0 X 12 FDA Start: 04-22-2023 Goals Date Patient Goal Desired Activity /State Functional Status Date Assessment Result Facility 04-23-2023 Functional status Patient at Baseline [facility] Work Phone: Mental Status Date Assessment Result Facility 04-23-2023 Cognitive function Cognitive Sta tus Patient at Baseline [facility] Work Phone: Clinical Notes 01-08-2022 to 11-20-2023 Adriel Morgan, DO - 11/20/2023 9:20 AM ESTPatient Instructions Note Date & Type Note Facility 11-20-2023 History of Present illness Narrative Subjective Kennedy Kong is a 88 y.o. male Chief Complaint Follow-up 88-year-old gentleman returns for follow-up he is doing well he has no cardiovascular complaints or events nitrate usage. 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 He did sustain transient small bowel obstruction and Stanley treated conservatively. He is due for bladder irrigation for bladder cancer coming up with Dr. Dietrich shortly. He remains on single agent clopidogrel (supposed to be on DAPT) and will make sure he is on DAPT following today's visit. 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 Left ventricular function by follow-up echo was completely normal. He has no other significant coronary disease. Recommendations, reinitiate aspirin 81 daily in addition to his final 6 months of clopidogrel, follow-up in 6 months Review of Systems All other systems reviewed and are negative. Visit Vitals BP 114/60 (BP Location: Right arm, Patient Position: Sitting) Pulse 66 Ht 1.803 m (5' 11 ) Wt 84.4 kg (186 lb) BMI 25.94 kg/m Smoking Status Never BSA 2.06 m Objective Physical Exam Constitutional: Appearance: Normal appearance. He is normal weight. HENT: Nose: Nose normal. Neck: Vascular: No carotid bruit. Cardiovascular: Rate and Rhythm: Normal rate. Pulses: Normal pulses. Heart sounds: Normal heart sounds. Pulmonary: Effort: Pulmonary effort is normal. Abdominal: General: Bowel sounds are normal. Palpations: Abdomen is soft. Genitourinary: Rectum: Normal. Musculoskeletal: General: Normal range of motion. Cervical back: Normal range of motion. Right lower leg: No edema. Left lower leg: No edema. Skin: General: Skin is warm and dry. Neurological: General: No focal deficit present. Mental Status: He is alert. Psychiatric: Mood and Affect: Mood normal. Behavior: Behavior normal. Thought Content: Thought content normal. Judgment: Judgment normal. Current Medications Current Outpatient Medications: atorvastatin (Lipitor) 80 mg tablet, Take 1 tablet (80 mg) by mouth once daily at bedtime., Disp: , Rfl: carvedilol (Coreg) 6.25 mg tablet, Take 1 tablet (6.25 mg) by mouth 2 times a day with meals., Disp: , Rfl: clopidogrel (Plavix) 75 mg tablet, Take 1 tablet (75 mg) by mouth once daily., Disp: , Rfl: tamsulosin (Flomax) 0.4 mg 24 hr capsule, Take 1 capsule (0.4 mg) by mouth once daily., Disp: , Rfl: Assessment/Plan 1. Atherosclerosis of [place] coronary artery, unspecified whether angina present, unspecified whether [place] or transplanted heart 2. Stented coronary artery 3. Non-ST elevation myocardial infarction (NSTEMI) (CMS/HCC) 4. Hyperlipidemia, unspecified hyperlipidemia type 5. History of colon cancer 6. Never smoked any substance 7. Malignant neoplasm of urinary bladder, unspecified site (CMS/HCC) Scribe Attestation By signing my name below, Radha RobbWesley Ferreira LPN , Scribe attest that this documentation has been prepared under the direction and in the presence of Adriel Morgan DO. documented in this encounter [facility] Work Phone: 11-20-2023 Instructions Lorena Garcia LPN - 11/20/2023 9:20 AM EST Please bring all medicines, vitamins, and herbal supplements with you when you come to the office. Prescriptions will not be filled unless you are compliant with your follow up appointments or have a follow up appointment scheduled as per instruction of your physician. Refills should be requested at the time of your visit. documented in this encounter [facility] Work Phone: 11-07-2023 Evaluation note Encounter Date Diagnosis Assessment Notes Oct, Ischemic cardiomyopathy (ICD-10 - I25.5) Echo: LVEF improved to 60% post PCI/stent placement - 06/2023 This patient is stable without activity related CP, dyspnea or lightheadedness . They are instructed to continue exercise and AHA diet plan. Continue secondary prevention measures. Discussed dental surgery - instructed not to stop his DAPT for any procedure Oct, Acute HFrEF (heart failure with reduced ejection fraction) (ICD-10 - I50.21) Instructed on low salt diet, exercise and daily weights. Instructed to notify office for any unexpected weight gain > 3lbs and/or increased dyspnea, difficulty breathing during sleep, worsening lower extremity swelling, chest pain or lightheadedness . Reviewed GDMT w/ beta blockers, KRISTINE/ARB/ARNI, MRA and SGLT-2 Euvolemic w/o s/s CHF - denies CHEEMA, orthopnea or PND Oct, Primary hypertension (ICD-10 - I10) This patient is instructed to consume a healthy, low-fat, low-salt diet. They are also encouraged to continue exercise to achieve/maintai n a normal BMI. 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 Monitor for now. Notify office w/ any pain or drainage Oct, History of colon cancer (ICD-10 - Z85.038) No s/s recurrence. Oct, History of bowel resection (ICD-10 - Z90.49) Oct, Constipation (ICD-10 - K59.00) Continue high fiber diet and Metamucil. Taking Metamucil tid w/ normal BM 3-4x daily. Miralax at HS has resulted in increased frequency during the night. - instructed to slowly decrease Miralax at HS, restarting at first s/s constipation [facility] Other [id number] Miscellaneous Notes* CDU Provider Note - Raulito Ott MD - 10/10/2023 4:22 PM EST This patient was appropriately risk stratified for observation level of care and placed on an observation protocol in our Clinical Decision Unit. The patient's intensity of service and severity of illness was appropriately aligned with observation level of care. Medical Decision Making This 88-year-old male observation unit report bowel obstruction and constipation. He apparently washaving looser stool over the weekend saw his doctor pulling the week and was given medication to help firm up his stool. However he is had no bowel movements in the last few days and now complains in some abdominal distention in increasing pain. His vital signs were unremarkable although he was slightly hypertensive. Yeah CBC and chemistry also were unremarkable. He had a CT scan which showed a personal small bowel obstruction but no evidence of starting point of the obstruction.He also had a small femoral hernia which we discussed. He wasseen by surgery who recommended medicines for his bowels and observation IV fluids. With this regimen he did have a large bowel movement just before we rounded today and felt much better. He was ableto eat without difficulty and eventually he was discharge. Amount and/or Complexity of Data Reviewed Independent Historian: spouse External Data Reviewed: labs. Labs: ordered. Radiology: ordered. Risk Prescription drug management. Physical Exam: On exam he had no abdominal tenderness in his lungs and cardiac exam were unremarkable. Disposition: Discharge The patient has met appropriate clinical criteria to be discharged from this CDU observation protocol. Reasons to return to the ED were discussed with the patient. The patient will be instructed to follow up with their primary care physician or specialist; if the patient does not have a physician to see in follow up, our CDU clinical case liner will assist the patient with their follow up needs. Clinical Impression: 1) Personal small bowel obstruction resolved 2) Surgery consultation I saw and evaluated the patient with ANGELA. I provided a substantive portion of the care for this patient. I personally performed all aspects of the medical decision making for this encounter. I have reviewed and verified this with the ANGELA so that it accurately reflects our care. I have personally spent 30 minutes or greater in discharge time which includes: final examination, preparing discharge instructions, discharge summary, prescriptions, and ambulatory referrals. [facility]* CDU Provider Note - Raulito Ott MD - 10/10/2023 4:22 PM EST This patient was appropriately risk stratified for observation level of care and placed on an observation protocol in our Clinical Decision Unit. The patient's intensity of service and severity of illness was appropriately aligned with observation level of care. Medical Decision Making This 88-year-old male observation unit report bowel obstruction and constipation. He apparently washaving looser stool over the weekend saw his doctor pulling the week and was given medication to help firm up his stool. However he is had no bowel movements in the last few days and now complains in some abdominal distention in increasing pain. His vital signs were unremarkable although he was slightly hypertensive. Yeah CBC and chemistry also were unremarkable. He had a CT scan which showed a personal small bowel obstruction but no evidence of starting point of the obstruction.He also had a small femoral hernia which we discussed. He wasseen by surgery who recommended medicines for his bowels and observation IV fluids. With this regimen he did have a large bowel movement just before we rounded today and felt much better. He was ableto eat without difficulty and eventually he was discharge. Amount and/or Complexity of Data Reviewed Independent Historian: spouse External Data Reviewed: labs. Labs: ordered. Radiology: ordered. Risk Prescription drug management. Physical Exam: On exam he had no abdominal tenderness in his lungs and cardiac exam were unremarkable. Disposition: Discharge The patient has met appropriate clinical criteria to be discharged from this CDU observation protocol. Reasons to return to the ED were discussed with the patient. The patient will be instructed to follow up with their primary care physician or specialist; if the patient does not have a physician to see in follow up, our CDU clinical case liner will assist the patient with their follow up needs. Clinical Impression: 1) Personal small bowel obstruction resolved 2) Surgery consultation I saw and evaluated the patient with ANGELA. I provided a substantive portion of the care for this patient. I personally performed all aspects of the medical decision making for this encounter. I have reviewed and verified this with the ANGELA so that it accurately reflects our care. I have personally spent 30 minutes or greater in discharge time which includes: final examination, preparing discharge instructions, discharge summary, prescriptions, and ambulatory referrals. [facility] Work Phone: [phone]) 183-260212-21-2023 Hospital Discharge instructions* Discharge Instructions* SAVANNA Gtz - 10/10/2023 3:46 PM EST Please call GI to schedule a follow-up appointment. Follow-up: Call as soon as possible for an appointment: Gastroenterology Clinic: [phone] [facility] Emergency department Note* Tracey Lawrence RN - 10/10/2023 1:59 PM EST Reason for Consult: Keith Documentation Spoke with Kennedy Kong @ 1219 Action Plan: Emergency Department Trip Motor Operator and discussed the Medicare Outpatient Observation Notice (KEITH). Patient's questions answered and they verified understanding. Patient instructed to call Medicare at1-800-MEDICARE ( ) if they have any additional questions. Document signed by patient and Trip Motor Operator. Copy provided for patient. Document scanned to [email or web address] Tracey ANDERSON Emergency Department Clinical Trip Motor Operator [id number] Available via secure chat [facility]* Tracey Lawrence RN - 10/10/2023 1:59 PM EST Reason for Consult: Keith Documentation Spoke with Kennedy Kong @ 1219 Action Plan: Emergency Department Trip Motor Operator and discussed the Medicare Outpatient Observation Notice (KEITH). Patient's questions answered and they verified understanding. Patient instructed to call Medicare at1-800-MEDICARE ( ) if they have any additional questions. Document signed by patient and Trip Motor Operator. Copy provided for patient. Document scanned to [email or web address] Tracey ANDERSON Emergency Department Clinical Trip Motor Operator [id number] Available via secure chat * Bronwyn Schaeffer MD - 10/10/2023 2:04 AM EST dEPARTMENT of Emergency Medicine CHIEF COMPLAINT No chief complaint on file. HPI Kennedy Kong is a 88 y.o. male and OSH transfer with a past medical history of hypertension, colon cancer (s/p resection 30 years ago), bladder cancer (s/p ablation), and bowel obstruction s/p several revisions who presents due to imaging findings of Small bowel obstruction. Kennedy Kong says that he has had episodes of constipation and bowel obstructions previous requiring a remote hospitalization. Yesterday, the patient became nauseous and experienced subjective fevers prior to presenting to OSH. Pt endorses having a bowel movement prior to presenting to the outside hospital stating it is pureed-like; he uses applesauce and prune juice to aid his baseline constipation. REVIEW OF SYSTEMS Positive for constipation. A complete review of systems was otherwise negative. ALLERGIES No Known Allergies PAST MEDICAL HISTORY Past Medical History: Diagnosis Date Bladder cancer s/p ablation Colon cancer Essential hypertension, benign SURGICAL HISTORY Past Surgical History: Procedure Laterality Date LARGE BOWEL SURGERY s/p at least 3 revisions CURRENT MEDICATIONS No current facility-administered medications for this encounter. Current Outpatient Medications Medication Sig Dispense Refill Losartan 25 MG tablet Take 1 tablet by mouth daily. FAMILY HISTORY No family history on file. SOCIAL HISTORY Social History Socioeconomic History Marital status: Spouse name: Not on file Number of children: Not on file Years of education: Not on file Highest education level: Not on file Occupational History Not on file Tobacco Use Smoking status: Never Smokeless tobacco: Never Vaping Use Vaping Use: Never used Substance and Sexual Activity Alcohol use: Never Drug use: Never Sexual activity: Not Currently Other Topics Concern Not on file Social History Narrative Not on file Social Determinants of Health Financial Resource Strain: Not on file Food Insecurity: Not on file Transportation Needs: Not on file Physical Activity: Not on file Stress: Not on file Social Connections: Not on file Intimate Partner Violence: Not on file Housing Stability: Not on file PHYSICAL EXAM BP 178/84 Pulse 82 Temp 97.5 F (36.4 C) (Oral) Resp 18 Ht 1.778 m (5' 10 ) SpO2 97% BMI24.97 kg/m Smoking Status Never Physical Exam Vitals and nursing note reviewed. Constitutional: General: He is not in acute distress. Appearance: Normal appearance. He is normal weight. He is not ill-appearing or toxic-appearing. HENT: Head: Normocephalic and atraumatic. Nose: Nose normal. Mouth/Throat: Mouth: Mucous membranes are moist. Cardiovascular: Rate and Rhythm: Normal rate and regular rhythm. Heart sounds: No murmur heard. No gallop. Pulmonary: Effort: Pulmonary effort is normal. No respiratory distress. Breath sounds: Normal breath sounds. No wheezing or rales. Abdominal: General: Bowel sounds are normal. There is no distension. Palpations: Abdomen is soft. Tenderness: There is no abdominal tenderness. There is no guarding. Musculoskeletal: General: No tenderness. Cervical back: Normal range of motion. Right lower leg: No edema. Left lower leg: Edema present. Skin: General: Skin is warm and dry. Capillary Refill: Capillary refill takes less than 2 seconds. Coloration: Skin is not jaundiced. Findings: Bruising present. Neurological: General: No focal deficit present. Mental Status: He is alert and oriented to person, place, and time. Psychiatric: Mood and Affect: Mood normal. Behavior: Behavior normal. Thought Content: Thought content normal. Judgment: Judgment normal. ED COURSE & MEDICAL DECISION MAKING Pertinent Labs & Imaging studies if performed reviewed. (See chart for details) Medication list reviewed. Differential Diagnosis includes but is not limited to: small bowel obstruction vs constipation vs malignancy Medical Decision Making: Kennedy Kong is a 88 y.o. male with a past medical history of hypertension, colon cancer (s/p resection 30 years ago), bladder cancer (s/p ablation), and bowel obstruction s/p several revisions presenting with constipation and small bowel obstruction on imaging. At this time, the patient is hemodynamically stable and is well-appearing. Vitals were benign and reassuring and physical exam was benign and reassuring. Initial laboratory studies and imaging included CBC, BMP, Hepatic Function Panel, Lactate and Lipase. General Surgery was consulted. Plan for symptom control includes anti-emetics if necessay. On re-evaluation, the patient has had two additional bowel movements. Laboratory studies were unremarkable. Lactate is 1.6. Will plan for a stay in the observation unit to continue monitoring this patient per General Surgery's recommendation. Will not place NG tube at present as pt does not have symptoms of N/V or abdominal pain. Impression: possible small bowel obstruction Disposition: Observation Unit Patient Kennedy Kong [id number] to be placed in observation unit for continued monitoring of small bowel obstruction. 1.Patient is agreeable to being placed in the EDOU Yes 2.Results of pertinent labs: Unremarkable, Lactate: 1.6, CBC, CHEM6, Hepatic Function Panel, Lipase: WNL 3.Results of pertinent Imaging: CT Abdomen from OSH: small bowel obstruction EDOU Problem List: 1. Small bowel obstruction on imaging: Plan of care: continue to monitor pt's symptoms for nausea, vomiting. Surgery has been consulted and is following. This plan was discussed and agreed upon with the supervising attending physician. This note was dictated with the assistance of Adnexus dictation software. Attempts were made to proofread text, however some errors may still be present. Bronwyn Schaeffer MD Resident 10/10/23 0510 * Dipti Patricia RN - 10/10/2023 1:38 AM EST Bed: E021 Expected date: Expected time: Means of arrival: Comments: triage * Lucy Ibarra RN - 10/09/2023 10:32 PM EST Pt to ED from OSH for SBO. Last BM approx 2 hrs ago, but hadn't fr 7 days prior to that. Vomited this am. Denies abd pain, nausea. [facility] Physician Emergency department Note* Bronwyn Schaeffer MD - 10/10/2023 2:04 AM EST dEPARTMENT of Emergency Medicine CHIEF COMPLAINT No chief complaint on file. HPI Kennedy Kong is a 88 y.o. male and OSH transfer with a past medical history of hypertension, colon cancer (s/p resection 30 years ago), bladder cancer (s/p ablation), and bowel obstruction s/p several revisions who presents due to imaging findings of Small bowel obstruction. Kennedy Kong says that he has had episodes of constipation and bowel obstructions previous requiring a remote hospitalization. Yesterday, the patient became nauseous and experienced subjective fevers prior to presenting to OSH. Pt endorses having a bowel movement prior to presenting to the outside hospital stating it is pureed-like; he uses applesauce and prune juice to aid his baseline constipation. REVIEW OF SYSTEMS Positive for constipation. A complete review of systems was otherwise negative. ALLERGIES No Known Allergies PAST MEDICAL HISTORY Past Medical History: Diagnosis Date Bladder cancer s/p ablation Colon cancer Essential hypertension, benign SURGICAL HISTORY Past Surgical History: Procedure Laterality Date LARGE BOWEL SURGERY s/p at least 3 revisions CURRENT MEDICATIONS No current facility-administered medications for this encounter. Current Outpatient Medications Medication Sig Dispense Refill Losartan 25 MG tablet Take 1 tablet by mouth daily. FAMILY HISTORY No family history on file. SOCIAL HISTORY Social History Socioeconomic History Marital status: Spouse name: Not on file Number of children: Not on file Years of education: Not on file Highest education level: Not on file Occupational History Not on file Tobacco Use Smoking status: Never Smokeless tobacco: Never Vaping Use Vaping Use: Never used Substance and Sexual Activity Alcohol use: Never Drug use: Never Sexual activity: Not Currently Other Topics Concern Not on file Social History Narrative Not on file Social Determinants of Health Financial Resource Strain: Not on file Food Insecurity: Not on file Transportation Needs: Not on file Physical Activity: Not on file Stress: Not on file Social Connections: Not on file Intimate Partner Violence: Not on file Housing Stability: Not on file PHYSICAL EXAM BP 178/84 Pulse 82 Temp 97.5 F (36.4 C) (Oral) Resp 18 Ht 1.778 m (5' 10 ) SpO2 97% BMI24.97 kg/m Smoking Status Never Physical Exam Vitals and nursing note reviewed. Constitutional: General: He is not in acute distress. Appearance: Normal appearance. He is normal weight. He is not ill-appearing or toxic-appearing. HENT: Head: Normocephalic and atraumatic. Nose: Nose normal. Mouth/Throat: Mouth: Mucous membranes are moist. Cardiovascular: Rate and Rhythm: Normal rate and regular rhythm. Heart sounds: No murmur heard. No gallop. Pulmonary: Effort: Pulmonary effort is normal. No respiratory distress. Breath sounds: Normal breath sounds. No wheezing or rales. Abdominal: General: Bowel sounds are normal. There is no distension. Palpations: Abdomen is soft. Tenderness: There is no abdominal tenderness. There is no guarding. Musculoskeletal: General: No tenderness. Cervical back: Normal range of motion. Right lower leg: No edema. Left lower leg: Edema present. Skin: General: Skin is warm and dry. Capillary Refill: Capillary refill takes less than 2 seconds. Coloration: Skin is not jaundiced. Findings: Bruising present. Neurological: General: No focal deficit present. Mental Status: He is alert and oriented to person, place, and time. Psychiatric: Mood and Affect: Mood normal. Behavior: Behavior normal. Thought Content: Thought content normal. Judgment: Judgment normal. ED COURSE & MEDICAL DECISION MAKING Pertinent Labs & Imaging studies if performed reviewed. (See chart for details) Medication list reviewed. Differential Diagnosis includes but is not limited to: small bowel obstruction vs constipation vs malignancy Medical Decision Making: Kennedy Kong is a 88 y.o. male with a past medical history of hypertension, colon cancer (s/p resection 30 years ago), bladder cancer (s/p ablation), and bowel obstruction s/p several revisions presenting with constipation and small bowel obstruction on imaging. At this time, the patient is hemodynamically stable and is well-appearing. Vitals were benign and reassuring and physical exam was benign and reassuring. Initial laboratory studies and imaging included CBC, BMP, Hepatic Function Panel, Lactate and Lipase. General Surgery was consulted. Plan for symptom control includes anti-emetics if necessay. On re-evaluation, the patient has had two additional bowel movements. Laboratory studies were unremarkable. Lactate is 1.6. Will plan for a stay in the observation unit to continue monitoring this patient per General Surgery's recommendation. Will not place NG tube at present as pt does not have symptoms of N/V or abdominal pain. Impression: possible small bowel obstruction Disposition: Observation Unit Patient Kennedy Kong [id number] to be placed in observation unit for continued monitoring of small bowel obstruction. 1.Patient is agreeable to being placed in the EDOU Yes 2.Results of pertinent labs: Unremarkable, Lactate: 1.6, CBC, CHEM6, Hepatic Function Panel, Lipase: WNL 3.Results of pertinent Imaging: CT Abdomen from OSH: small bowel obstruction EDOU Problem List: 1. Small bowel obstruction on imaging: Plan of care: continue to monitor pt's symptoms for nausea, vomiting. Surgery has been consulted and is following. This plan was discussed and agreed upon with the supervising attending physician. This note was dictated with the assistance of Adnexus dictation software. Attempts were made to proofread text, however some errors may still be present. Bronwyn Schaeffer MD Resident 10/10/23 0510 [facility] Work Phone: [phone] Emergency department Note* Dipti Patricia RN - 10/10/2023 1:38 AM EST Bed: E021 Expected date: Expected time: Means of arrival: Comments: triage [facility] Emergency department Note* Lucy Ibarra RN - 10/09/2023 10:32 PM EST Pt to ED from OSH for SBO. Last BM approx 2 hrs ago, but hadn't fr 7 days prior to that. Vomited this am. Denies abd pain, nausea. 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 [facility] Other 12-15-2023 Evaluation note* Encounter Date Diagnosis [...] or fever. High fiber, low residue diet. [facility] Other 11-15-2023 Evaluation note* Encounter Date Diagnosis [...] - Z90.49) Secondary to IBD, in remission [facility] Other 11-01-2023 Evaluation note* Encounter Date Diagnosis [...] area clean. Duoderm may help protect area [facility] Other 11-01-2023 Evaluation note* Encounter Date Diagnosis Assessment Notes Treatment Notes Treatment Clinical Notes Aug, Pressure injury of sacral region, stage 1 (ICD-10 - L89.151) [facility] Other 10-17-2023 Evaluation note* Encounter Date Diagnosis Assessment Notes Treatment Notes Treatment Clinical Notes Jul, Dysuria (ICD-10 - R30.0) [facility] Other 10-13-2023 Evaluation note* Encounter Date Diagnosis [...] continue Tylenol, hot showers, avoid strenuous activity [facility] Other 09-18-2023 Evaluation note* Encounter Date Diagnosis [...] cancer (ICD-10 - Z85.51) No s/s recurrence [facility] Other 08-18-2023 Evaluation note* Encounter Date Diagnosis Assessment Notes Treatment Notes Treatment Clinical Notes May, Spider bite wound, accidental or unintentional, initial encounter (ICD-10 - T63.301A) May, Generalized muscle ache (ICD-10 - M79.10) May, Adverse reaction to statin medication (ICD-10 - T46.6X5A) May, Elevated cholesterol (ICD-10 - E78.00) [facility] Other 07-25-2023 Note [id number] 05-14-2023 NoteCustom Cystoscopy ? Voiding after the [...] if you have a fever over 100 degrees.[facility] 05-02-2023 Evaluation note* Encounter Date Diagnosis Assessment Notes Treatment Notes Treatment Clinical Notes Apr, Tinea pedis of both feet (ICD-10 - B35.3) [facility] Other 07-04-2023 Progress note Author Hang Pedersen [facility] April 23, 2023 9:24am Note Date/Time April 23, 2023 9:20a m [facility] [address] [place] [address] Cardiology Progress Note Signed Patient: Kennedy Kong MR#: [id number] : 1935 Acct:[id number] Age/Sex: 87 / M Adm Date: 3 Loc: Room: [address] [place] [address] Type: ADM IN Attending Dr: Kiki Motta [...] MPV Neut % (Auto) Lymph % (Auto) Harlan % (Auto) Eos % (Auto) Baso % (Auto) Nucleat RBC Rel Count Neut # (Auto) Lymph # (Auto) Harlan # (Auto) Eos # (Auto) Baso # (Auto) PHA Creatinine Clear Sodium Potassium Chloride Carbon Dioxide Anion Gap BUN Creatinine Est GFR (CKD-EPI) Glucose Calcium Troponin I High Sens 96122.8 H* 71127.7 H* 35556.2 H* Triglycerides Cholesterol LDL Cholesterol, Calc VLDL Cholesterol HDL Cholesterol Cholesterol/HDL Ratio 04/22/23 04/23/23 04/23/23 23:35 03:41 03:41 Corrected WBC 8.1 Uncorrected WBC Count 8.1 RBC 4.52 Hgb 13.4 Hct 40.6 MCV 89.8 MCH 29.7 MCHC 33.1 RDW 13.6 Plt Count 215 MPV 6.8 Neut % (Auto) 73.2 Lymph % (Auto) 10.5 Harlan % (Auto) 14.1 Eos % (Auto) 1.5 Baso % (Auto) 0.7 Nucleat RBC Rel Count 0.1 Neut # (Auto) 5.9 Lymph # (Auto) 0.9 L Harlan # (Auto) 1.1 H Eos # (Auto) 0.1 Baso # (Auto) 0.1 PHA Creatinine Clear 55.30 Sodium 137 Potassium 4.5 Chloride 106 Carbon Dioxide 25.0 Anion Gap 10.5 BUN 24 Creatinine 0.99 Est GFR (CKD-EPI) > 60.0 Glucose 110 H Calcium 8.7 Troponin I High Sens 55240.0 H* Triglycerides 97 Cholesterol 148 LDL Cholesterol, Calc 73 VLDL Cholesterol 19 HDL Cholesterol 56 Cholesterol/HDL Ratio 2.6 04/23/23 03:41 Corrected WBC Uncorrected WBC Count RBC Hgb Hct MCV MCH MCHC RDW Plt Count MPV Neut % (Auto) Lymph % (Auto) Harlan % (Auto) Eos % (Auto) Baso % (Auto) Nucleat RBC Rel Count Neut # (Auto) Lymph # (Auto) Harlan # (Auto) Eos # (Auto) Baso # (Auto) PHA Creatinine Clear Sodium Potassium Chloride Carbon Dioxide Anion Gap BUN Creatinine Est GFR (CKD-EPI) Glucose Calcium Troponin I High Sens 31430.2 H* Triglycerides Cholesterol LDL Cholesterol, Calc VLDL [...] Please make sure patient has follow-up in [facility] within 10 days. Pending a favorable clinical [...] <Electronically signed by Hang Pedersen MD> 04/23/23923 [facility] Work Phone: 1(431) 298-870907-03-2023 Consult note Author W Eddie [facility] April 22, 2023 12:46pm Note Date/Time April 22, 2023 12:42 pm [facility] [address] [place] [address] Cardiology Consult Note Signed Patient: Kennedy Kong MR#: [id number] : 1935 Acct:[id number] Age/Sex: 87 / M Adm Date: 3 Loc: Room: [address] [place] [address] Type: ADM IN Attending Dr: Kiki Motta MD Copies to: MD Nestor Todd DO W Scott Sheldon, DO~ Cardiology HPI History of Present Illness Consult Date: 04/22/23 Reason for Consult: Non-ST elevation RI/ACS HPI: Mr. Kong is a 87 year old male seen in interventional cardiology consultation at request of hospitalist and gentleman who was transferred from [facility] emergency room after being awakened with chest discomfort at 3 AM this morning. The discomfort radiated to his shoulder, back, left side; finally drove himself to the emergency room, he received 1 sublingual nitroglycerin with relief. Initial high-sensitivity troponin was elevated at 648; initial ECGs revealed sinus rhythm with J-point elevation in the inferolateral leads, however somewhat similar to previous remote ECG at [facility] had on record Patient was excepted to the hospitalist service this morning. He did not receive any upstream heparin or antiplatelet therapies, [facility] ECG and labs are reviewed there are [...] signed by Ko Morgan DO> 04/22/23 1246 [facility] Work Phone: 1(343) 460-405407-03-2023 [facility] History and physical note Author Alaa Alahmad [facility] April 22, 2023 11:53am Note Date/Time April 22, 2023 11:10 am [facility] [address] [place] [address] Hospitalist H&P Signed Patient: Kennedy Kong MR#: [id number] : 1935 Acct:[id number] Age/Sex: 87 / M Adm Date: 3 Loc: Room: [address] [place] [address] Type: ADM IN Attending Dr: Kiki Motta MD Copies to: MD Nestor Todd,DO~ HPI DATE OF EXAMINATION: 04/22/23 CHIEF COMPLAINT: [...] negative unless noted below or in HPI [facility] Attestation Statement: The following information was validated [...] signed by Kiki Motta MD> 04/22/23 1153 [facility] Work Phone: [phone] 447-411206-23-2023 Evaluation note* Encounter Date Diagnosis Assessment Notes Treatment Notes Treatment Clinical Notes Mar, Tinea pedis of both feet (ICD-10 - B35.3) Keep dry, cleanse socks daily and open to air at home. Use cream bid and take Lamisil qd x 14 days [facility] Other 04-19-2023 Evaluation note* Encounter Date Diagnosis Assessment Notes Treatment Notes Treatment Clinical Notes Jan, Carbuncle and furuncle of buttock (ICD-10 - L02.33) Warm compresses or warm soak. Massage Notify office w/ increased swelling, pain or swelling Jan, Rivera hemangioma (ICD-10 - D18.01) Reassured [facility] Other 03-27-2023 NoteHNO ID: [id number] Author: Avel Camacho MD Service: ? Author Type: Physician Type: Progress Notes Filed: 01/17/2023 11:00 PM Note Text: BELL Kong is a 87 year old [...] - follow up as needed. Avel Camacho, [facility]03-27-2023 Nurse Note* Micaela Henderson MA - 01/14/2023 [...] Temperature: No Drains: No [facility] History of Present illness Narrative* Avel Camacho [...] needed. Avel Camacho MD [facility] Evaluation note* Encounter Date Diagnosis Assessment Notes [...] Diet adjustements to control constipation and diarrhea [facility] Other 03-09-2023 Evaluation note* Encounter Date Diagnosis Assessment Notes Treatment Notes Treatment Clinical Notes Dec, Anemia, unspecified type (ICD-10 - D64.9) [facility] Other 03-07-2023 Evaluation note* Encounter Date Diagnosis Assessment Notes Treatment Notes Treatment Clinical Notes Dec, Anemia, unspecified type (ICD-10 - D64.9) [facility] Other 01-13-2023 Evaluation + Plan note Diagnostic Tests Pending * [facility]) 11/02/22 [facility] 08-15-2022 Evaluation + Plan note Diagnostic Tests Pending * [facility] ([facility]) 06/04/22 [facility] 05-13-2022 Evaluation + Plan note Diagnostic Tests Pending * [facility] U[facility] ([facility]) 03/02/22 [facility] 03-21-2022 Evaluation + Plan note Diagnostic Tests Pending * [facility] Fish [facility] Urine [facility] ([facility]) 01/08/22 [facility] discharge summary Author Kiki Motta [facility] April 23, 2023 11:20am Note Date/Time April 23, 2023 11:20 am [facility] [address] [place] [address] Discharge Summary Signed Patient: Kennedy Kong MR#: [id number] : 1935 Acct:[id number] Age/Sex: 87 / M Adm Date: 3 Loc: Room: [address] [place] [address]: Kiki Motta MD Copies to: [...] discharge: 04/23/23 03:41: Troponin I High Sens 71238.2 H* 04/23/23 03:41: PHA Creatinine Clear 55.30, [...] % (Auto) 73.2, Lymph % (Auto) 10.5, Harlan % (Auto) 14.1, Eos % (Auto) 1.5, Baso % (Auto) 0.7, Nucleat RBC Rel Count 0.1, Neut # (Auto) 5.9, Lymph # (Auto) 0.9 L, Harlan # (Auto) 1.1 H, Eos # (Auto) 0.1, Baso # (Auto) 0.1 04/22/23 23:35: Troponin I High Sens 77526.0 H* 04/22/23 20:04: Troponin I High Sens 52342.2 H* 04/22/23 17:07: Troponin I High Sens 70926.7 H* 04/22/23 14:25: Troponin I High Sens 80521.8 H* Exam Physical Exam Vital Signs: Temp [...] doctor or pharmacist, without first calling the telecom sales consultant who implanted the stent. If you require [...] weight lifting, stair steppers, etc. until the telecom sales consultant approves these activities. Check with the telecom sales consultant on your first follow-up visit. CALL YOUR PHYSICIAN at [phone]: -If bleeding should occur from the catheter insertion site- apply pressure to the site then immediately call us. -Report any fever, redness, drainage, increased swelling, or firmness at the catheter insertion site. Some bruising or slight swelling may be present at the time of discharge. -Should arm or leg become cold, numb, white, or blue, contact the telecom sales consultant immediately. -IF you should experience episodes of [...] is recommended. Please call Central Scheduling at [phone] to schedule your appointment.] The attending telecom sales consultant or [facility] nurse clinician should provide you with specific instructions regarding activity, diet, medications, and further follow up for you. Follow the medication instructions provided on your discharge. If the dosages and instructions on this sheet differ from the dosage and instructions on the bottle, follow the instructions on the bottle. [facility] is not responsible for incorrect prescription [...] signed by Kiki Motta MD> 04/23/23 1120 [facility] Work Phone: Evaluation noteNo InformationNonevada regional medical center [employer] Other Evaluation note* Diagnosis Irregular bowel habits- Primary Other specified disorder of intestines [facility] Diagnosis Onset Date Resolution Status Colon cancer acute Essential hypertension acute NSTEMI (non-ST elevated myocardial infarction) acute [facility] Work Phone: Evaluation note* Diagnosis Small bowel obstruction- Primary Unspecified intestinal obstruction Abdominal pain, generalized [facility] information [facility] Work Phone: Evaluation note* Diagnosis Atherosclerosis of [place] coronary artery, unspecified whether angina present, unspecified whether [place] or transplanted heart 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 Non-ST elevation myocardial infarction (NSTEMI) ([facility]/HCC) Acute myocardial infarction, subendocardial infarction, episode of care unspecified Hyperlipidemia, unspecified hyperlipidemia type History of colon cancer Personal history of malignant neoplasm of large intestine Never smoked any substance Malignant neoplasm of urinary bladder, unspecified site ([facility]/HCC) documented in this encounter [facility] Work Phone: Hisrcxo general Narrative - Reported* Type Description Date [...] History Cystoscopy 12/2022 Hospitalization History see above [facility] Other Histduk general Narrative - Reported* Type Description Date [...] the LCx 04/2023 Hospitalization History see above [facility] Other History general Narrative - Reported* Type [...] ULCERTIVE COLITIS Medical History ASHD Surgical History hydrocelectomy 2020 Surgical History cancer Surgical History colonoscopy (2001, 2006, 2012, 2015, 2019 Surgical History Colectomy 2009 Surgical History scar tissue Surgical History CYSTOSCOPY 2021 Surgical History Cystoscopy 12/2022 Surgical History LHC, PCI/stent OM branch of the LCx 04/2023 Hospitalization History see above [facility] Other Hospital course Narrative No data available for this section [facility] Discharge instructions No data available for this section [facility] Discharge instructions Additional Instructions DISCHARGE INSTRUCTIONS [...] doctor or pharmacist, without first calling the telecom sales consultant who implanted the stent. If you require [...] weight lifting, stair steppers, etc. until the telecom sales consultant approves these activities. Check with the telecom sales consultant on your first follow-up visit. CALL YOUR PHYSICIAN at [phone]: -If bleeding should occur from the catheter insertion site- apply pressure to the site then immediately call us. -Report any fever, redness, drainage, increased swelling, or firmness at the catheter insertion site. Some bruising or slight swelling may be present at the time of discharge. -Should arm or leg become cold, numb, white, or blue, contact the telecom sales consultant immediately. -IF you should experience episodes of [...] is recommended. Please call Central Scheduling at [phone] to schedule your appointment.] The attending telecom sales consultant or [facility] nurse clinician should provide you with specific instructions regarding activity, diet, medications, and further follow up for you. Follow the medication instructions provided on your discharge. If the dosages and instructions on this sheet differ from the dosage and instructions on the bottle, follow the instructions on the bottle. [facility] is not responsible for incorrect prescription information provided by the patient during their visit. Do not stop your medications without consulting your health care provider. Please take the list with you to your next doctor's appointment.[facility] Work Phone: Progress note No data available for this section [facility] reason for referral (narrative)* Consultation (Routine) - New Request Specialty Diagnoses / Procedures Referred By Mart hale Referred To Contact Gastroenterology Diagnoses Small bowel obstruction Abdominal pain, generalized Seferino Han APRN-CNP [address] [place] [phone] Referral ID Status Reason Start Date Expiration Date V isits Requested Visits Authorized [id number] New Request 10/10/2023 11/03/2024 1 1 [facility] Consultation (Routine) - Authorized Specialty Diagnoses / Procedures Referred By Mart hale Referred To Contact Cardiology Diagnoses Atherosclerosis of [place] coronary artery, unspecified whether angina present, unspecified whether [place] or transplanted heart Stented coronary artery Non-ST elevation myocardial infarction (NSTEMI) ([facility]) Procedures Follow Up In Cardiology Adriel Morgan, [address] [facility] [address] [place] [address] Adriel Morgan, DO [address] [facility] [address] [place] [address] Referral ID Status Reason Start Date Expiration Date V isits Requested Visits Authorized [id number] Authorized 11/20/2023 11/19/2024 1 1 [facility] Work Phone: Reason for visit Narrative* Auth/Cert Specialty Diagnoses / Procedures Referred By Contac t Referred To Contact Diagnoses Bowel Obstruction Raulito Camacho MD [address] [place] [address] [facility] [address] [place] [address] Referral ID Status Reason Start Date Expiration Date Visits Re quested Visits Authorized [id number] 1 1 [facility] Summary Purpose Family History Relationship Condition Age [...] Time Advance Directives No May 06 10:25am Latest Code Status on File Code Status Date Activated Date Inactivated Comments Full Code 11/04/2022 2:12 AM Advance Directive Response Recorded Date/ Time Advance Directives No May 06 9:25am Procedure Findings Note MR#: [id number] [facility] Pt. Name: Kennedy Kong Surgery Date: [...] and the last dilation was performed in 2018. The patient is scheduled to have his colon checked for possible dilation. The preparation was poor since he received enema only. PROCEDURE IN DETAIL: After obtaining the informed consent, which include the risks, benefits, alternatives, and complications, complications including bleeding, perforation, and reaction to medications, the patient was placed in the left lateral decub (more content not included)... Note MR#: [id number] [facility] Pt. Name: Kennedy Kong Surgery Date: 04/16/2019 Room #: Z0 Date of : 1935 PROCEDURE NOTE ATTENDING: Gabriel Perez M.D. WHITE WASHER PILER: Marilee Jiménez M.D. PROCEDURE: Colonoscopy with polypectomy [...] NSTEMI (non-ST elevated myocardial infarction) Chief Complaint Z90.49 K91.30 Chief Complaint * KENNEDY KONG is being seen for follow-up of a hospitalization for STEMI/PCI. * Patient is an 87-year-old gentleman who returns following recent non-ST elevation RI due to occluded obtuse marginal branch with primary revascularization with drug-eluting stent and is doing well. He has mild LV dysfunction, No significant coronary disease, ejection fraction of 45%. 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, his daily activities include lifting up to [...] section and content) DATE CREATED AUTHOR 04/16/2018 [facility] DATE CREATED AUTHOR AUTHOR'S ORGANIZ ATION 04/25/2019 [facility] DATE CREATED AUTHOR AUTHOR'S ORGANIZ ATION 11/04/2019 [facility] DATE CREATED AUTHOR AUTHOR'S ORGANIZ ATION 12/28/2022 [facility] DATE CREATED AUTHOR AUTHOR'S ORGANIZ ATION 01/23/2023 [facility] DATE CREATED AUTHOR AUTHOR'S ORGANIZ ATION 01/23/2023 [facility] DATE CREATED AUTHOR AUTHOR'S ORGANIZ ATION 05/03/2023 [facility] DATE CREATED AUTHOR AUTHOR'S ORGANIZ ATION 06/27/2023 [facility] DATE CREATED AUTHOR AUTHOR'S ORGANIZ ATION 09/17/2023 [facility] DATE CREATED AUTHOR AUTHOR'S ORGANIZ ATION 10/27/2023 [facility] DATE CREATED AUTHOR AUTHOR'S ORGANIZ ATION 11/19/2023 [facility] Care Team (unrecognized sect ion and content) Voucher Clerk Relationship Specialty Start Date End Date Nestor Estrella DO PCP - General Internal Medicine 01/16/12 Team [...] Active Rashida Gould RN Other Provider Active Peyton Norman MD Other Provider Active Misty Rothman , [facility]- Other Provider Active Endy Arevalo MD Other Provider Active Lucio Dillon MD Other Provider Active Ko Morgan DO Other Provider Active Christy Love APRN Other Provider Active Hannah Abraham MD Other Provider Active Voucher Clerk Relationship Specialty Start Date End Date Jimmy Estrella MD [address] [facility] [place] [address] PCP - General Family Medicine 11/03/22 Team Status: Inactive Member Role Status Dates Nestor Estrella DO Primary Care Provider Active Zofia Gates MD Attending Provider Active Voucher Clerk Relationship Specialty Start Date End Date Nestor Estrella DO [address] [facility] [address] [place] [address] PCP - General Internal Medicine 11/20/23 Voucher Clerk Relationship Specialty Start Date End Date Jimmy Estrella MD [address] [facility] [place] [id number] PCP - General Family Medicine 11/03/22 REASON FOR VISIT (unrecogniz ed section and content) Reason Comments Follow-up 6 months 4 month Follow upGI REFERRAL CONSULT Specialty Diagnoses / Procedures Referred By Contkiki t Referred To Contact Diagnoses [facility] [address] [place] [address] [facility] [address] [place] [address] Referral ID Status Reason Start Date Expiration Date Visits Re quested Visits Authorized [id number] 1 1 PATIENT IS HERE AT THE REQUEST OF DR. ESTRELLA HX OF BOWEL RESECTION. DR GATES REVIEW REFER AND SAID HEWANTED TO SEE PT IN OFFICE AND GO [...] or prosecute any alcohol or drug abuse patient.[facility] Scheduled Active and Recently Administ ered Medications (unrecognized section and content) Medication Order 10/08/2023 10/09/2023 10/10/2023 aspirin chewable tablet 81 mg 81 mg, Oral, DAILY, First dose on Leslie 10/10/23 at 1015, Until Discontinued 1053 (Given - Provid er: Cyndi Coley RN) carveDILOL (COREG) tablet 6.25 mg 6.25 mg, Oral, EVERY 12 HOURS, First dose on Leslie 10/10/23 at 1045, Until Discontinued 1053 (Given - Provid er: Cyndi Coley RN) Clopidogrel (PLAVIX) tablet 75 mg (COMPLETED) 75 mg, Oral, ONCE, 1 dose, On Leslie 10/10/23 at 1045 1053 (Given - Provid er: Cyndi Coley RN) Losartan (COZAAR) tablet 25 mg (COMPLETED) 25 mg, Oral, ONCE, 1 dose, On Leslie 10/10/23 at 1045 1053 (Given - Provid er: Cyndi Coley RN) Rosuvastatin (CRESTOR) tablet 40 mg 40 mg, Oral, DAILY, First dose on Leslie 10/10/23 at 1045, Until Discontinued 1229 (Given - Provid er: Cyndi Coley RN) Tamsulosin HCl (FLOMAX) capsule 0.4 mg 0.4 mg, Oral, DAILY, First dose on Leslie 10/10/23 at 1045, Until Discontinued, Slow release product. Do not chew or crush 1053 (Given - Provid er: Cyndi Coley RN) PRN Medication Order 10/08/2023 10/09/2023 10/10/2023 Acetaminophen (TYLENOL) tablet 650 mg 650 mg, Oral, EVERY 4 HOURS NEEDED, Starting on Leslie 10/10/23 at 0942, Until Leslie 10/10/23 at 1823, Mild Pain, Oral temp > 100.4 F, Maximum dose of acetaminophen is 4000 mg from all sources in 24 hours. alum/mag hydrox.-simethicone oral suspension 30 mL 30 mL, Oral, EVERY 6 HOURS NEEDED, Starting on Leslie 10/10/23 at 0942, Until Leslie 10/10/23 at 1823, Indigestion, Per 5 mL is equivalent to: (Alum-Mag Hydroxide 200-225 mg and Simethicone 20 mg) and (Alum-Mag Hydroxide 200-200 mg and Simethicone 20 mg) Goals (unrecognized section and content) Goals may be documented in a n alternate section FOR RECORDS PERTAINING TO PATIENTS WHO ARE [...] BE BASED ON THE PRIMARY CLINICAL RECORDS. [facility] [employer] [facility]. provides no warranty or guarantee of the accuracy or completeness of information in this document.
== END 2023-11-22 07:46 | disposition home or self-care (01) ==
LOC: PST 07:48
PROVIDERS: PCP Internal Medicine; Visit Provider Urology
DX: Z01.818 Encounter for other preprocedural examination (principal); D49.4 Neoplasm of unspecified behavior of bladder; Z85.51 Personal history of malignant neoplasm of bladder; I10 Essential (primary) hypertension; Z79.01 Long term (current) use of anticoagulants; I25.10 Atherosclerotic heart disease of native coronary artery without angina pectoris; I25.2 Old myocardial infarction
CPT/HCPCS: 80048; 85610; 85730

== ENCOUNTER 2023-11-29 08:19 | Outpatient (OUT) | payer MEDICARE, SELFPAY ==
--- NOTE | 2023-11-29 08:22 | ECG_ITS ---
[facility] Test Date: 2023-11-29 Pat Name: JANIE KONG Department: Room: - Gender: Male Live [employer]: : 1935 Requested By: KYLIE DIETRICH Order Number: [id number] Reading MD: LESA ESTRELLA Measurements Intervals [place] Rate: 58 P: 46 TN: 136 QRS: 59 QRSD: 93 T: 66 QT: 405 QTc: 399 Interpretive Statements SINUS BRADYCARDIA No pathologic Q waves Nonspecific ST/T wave changes Electronically Signed On 11-30-2023 12:35:47 EST by LESA ESTRELLA
--- NOTE | 2023-11-29 08:22 | XR_ITS ---
The [address] [address] Patient Name: JANIE KONG MRN: [id number] date: 1935 Sex: M Assigned Patient Location: [facility] Current Patient Location: [facility] Accession/Order Number: [id number] Exam Date: 11/29/2023 09:05 Report Date: 11/29/2023 09:17 At the request of: KYLIE DIETRICH Procedure: XR chest 2V EXAM: XR chest 2V HISTORY: Preop exam COMPARISON: None. TECHNIQUE: PA and lateral views of the chest. FINDINGS: The cardiomediastinal silhouette is normal. No focal consolidation is identified. There is no pneumothorax. No pleural effusion is noted. The osseous structures are intact. XR/XR chest 2V IMPRESSION: No acute cardiopulmonary process. Electronically authenticated by: SRIRAM JEAN Date: 11/29/2023 09:17
--- OUTSIDE RECORDS SUMMARY | 2023-11-29 08:23 | XMS_ITS | CCD ---
Author Name Unknown Address [address] [place] [address] Organization [facility] Care Team Providers Care Expeditionary Fighting Vehicle Crewman Name Role Phone ADRIEL RIOS Unavailable NESTOR Vela Unavailable ADRIEL Malik Unavailable Unavailable NESTOR ESTRELLA Unavailable NESTOR Vela Primary Care Physician JIMMY ESTRELLA Primary Care [...] Unavailable BALL, DR BAEZ Primary Care Unavailable SAMEER, DR BAEZ Consulting Unavailable SAMEER, DR BAEZ Primary Care Unavailable SAMEER, DR BAEZ Attending Unavailable SAMEER, DR BAEZ Admitting Unavailable LUIS, DR AUBREY Barclay Consulting Unavailable DIETRICH ., DR ESPINAL Attending Unavailable REQUEST, NONE LISTED Primary Care Unavaila ble DIETRICH ., DR ESPINAL Consulting Unavailable DIETRICH ., DR ESPINAL Admitting Unavailable SAMEER, DR BAEZ Consulting Unavailable SAMEER, DR BAEZ Attending Unavailable SAMEER, DR BAEZ Admitting Unavailable SAMEER, DR BAEZ Primary Care Unavailable LEV, DR [...] Unavailable BALL, DR BAEZ Attending Unavailable REQUEST, NONE LISTED Primary Care Unavaila ble BALL, [...] Primary Care Unavaila ble DIETRICH ., DR KYLIE Gambleitting Unavailable DIETRICH ., DR ESPINAL Admitting Unavailable DIETRICH ., DR ESPINAL Consulting Unavailable DIETRICH ., DR ESPINAL Attending Unavailable BALL, DR BAEZ Primary Care Unavailable DIETRICH ., DR ESPINAL Consulting Unavailable DIETRICH ., DR ESPINAL Attending Unavailable REQUEST, DR NONE LISTED Primary Care Unavaila ble DIETRICH ., DR ESPINAL Admitting Unavailable BALL, DR BAEZ Referring Unavailable DIETRICH ., DR ESPINAL Admitting [...] ble DIETRICH ., DR ESPINAL Admgeeta Unavailable Ball, DO Baez Primary Care Provider MD Kiki Motta Admit Provider MD Kiki Motta Attending Provider [phone] MD Grace West Other Provider MD Raheem Giles Other Provider MD Kimberly Skinner Other Provider MD Adriel Lay Other Provider JUSTIN Gould Other Provider Unavailable MD Peyton Norman Other Provider Lorna [facility] Misty Soriano Other Provider MD Endy Arevalo Other Provider MD Lucio Dillon Other Provider DO Ko Morgan Other Provider MIGUEL White Other Provider MD Hannah Abraham Other Provider [phone] Nestor Estrella Unavailable Unavailable Unavailable Eddie, Dr. Adriel Pierre Attending Raegan Estrella, Dr. Nestor Lovelace Primary Care Marcella Estrella, Dr. Nestor Lovelace Primary [facility] Marcella Morgan, Dr. Adriel Pierre Referring Raegan Morgan, Dr. Adriel Pierre Attending Raegan Estrella, Dr. Nestor Lovelace Primary [facility] Marcella Morgan, Dr. Adriel Pierre Attending Raegan Estrella, Dr. Nestor Lovelace [facility] Marcella weeks Asaad, Imad Unavailable Jimmy Estrelal MD Primary Care Provider DO Nestor Estrella Primary Care Provider MD Zofia Gates Attending Provider Nestor Estrella Primary Care Unavailable Asaad, Imad Admitting Unavailable Anuragad Imad Attending Unavailable Nestor Estrella Primary Care Unavailable Alahmad, Alaa Admitting Unavailable Frantzhmpat, Alaa Attending Unavailable Grace West Consulting Unavailable Raheem Giles Consulting Unavailable Kimberly Skinner Consulting Unavailable Adriel Lay Consulting Unavail able Rashida Gould Consulting Unavailable Peyton Norman Consulting Unavailable Misty Rothman Consulting Unavailable Endy Arevalo Consulting Unavailab martha Dillon Lucio Franz Consulting Unavailab Ko Piper Consulting [...] Unavailable Nestor Estrella DO Primary Care Provider ADRIEL MORGAN Attending NESTOR Vela Primary Care Unavailable Allergies Allergy Classification Reported Allergen(s) Allergy Type Date of Onset Reaction(s) Facility (3 sources) Amoxicillin; Translations: [AMOXICILLIN] Drug Allergy 04-28-2013 Other: See Comments [facility] Medications Current Medications Medication Drug Class(es) Dates Sig (Normalized) Sig (Original) aspirin 81 mg chewable tablet (20 sources) Platelet Aggregation Inhibitor, Nonsteroidal Anti-inflammatory Drug Start: 11-20-2023 End: 11-19-2024 aspirin 81 mg chewable tablet Indications: Atherosclerosis of stebbins coronary artery, unspecified whether angina present, unspecified whether stebbins or transplanted heart , Stented coronary artery , Non-ST elevation myocardial infarction (NSTEMI) ([facility]) Chew 1 tablet (81 mg) once daily. [...] (20 sources) take 1 capsule by mo [facility] every twenty-four hours Stool Softener 100 MG [...] (20 sources) Angiotensin 2 Receptor Myra Start: 3 End: 3 take 25 mg by mouth at bedtime Losartan Active 25 MG PO Bedtime April 21, 2023 11:00pm losartan jase um (LOSARTAN ORAL) Take by mouth once daily. 0 Active Comment on above: Take by mouth once d aily. nitroglycerin 0.4 mg sublingual tablet (2 sources) Nitrate Vasodilator Start: 04-22-20 Nitroglycerin Active 0.4 MG SUBLINGUAL Q5M 25 April 21, 2023 11:00pm do not exceed [...] procedure, # 6 tab(s), Refills(s) 0, Pharmacy: [facility]/pharmacy #[id number], 178, cm, 09/01/21 10:42:00 EST, Height/Length Dosing, 78, kg, 09/01/21 10:42:00 EST, W... Start Date: 12/07/22 Status: Ordered Start: 10-26-2022 take 1 tablet by dianne th once daily Cipro 250 mg Tab 250 mg = 1 tab(s), Oral, Daily, Take 1 tablet the day before the procedure and 1 tablet after the procedure, # 2 tab(s), Refills(s) 0, [id number] 178, cm, 09/01/21 10:42:00 EST, Height/Length Dosing, 78, kg, 09/01/21 10:42:00 EST, W... Start Date: 10/26/22 Status: Ordered Start: 03-01-2022 take 1 tablet by dianne once daily Cipro 500 mg Tab 500 mg = 1 tab(s), Oral, Daily, Take 1 tablet the day before the procedure and 1 tablet after the procedure, # 2 tab(s), Refills(s) 0, [id number] 178, cm, 09/01/21 10:42:00 EST, Height/Length Dosing, 78, kg, 09/01/21 10:42:00 EST, W... Start Date: 03/01/22 Status: Ordered Start: 12-07-2021 take 1 tablet by dianne once daily Cipro 500 mg Tab 500 mg = 1 tab(s), Oral, Daily, Take 1 tablet the day before procedure and 1 tablet after the procedure, # 2 tab(s), Refills(s) 0, Pharmacy: [id number], 178, cm, 09/01/21 10:42:00 EST, Height/Length [...] route three times daily as needed Ipratropium [place] 0.06 % 2 sprays in each nostril Nasally Three times a day Not-Taking/PRN take 2 spray(s) nasa l route three times daily Ipratropium [place] 0.06 % 2 sprays in e ach [...] Active rosuvastatin calcium 10 mg oral tablet (18 sources) HMG-CoA Reductase Inhibitor Start: 10-10-2023 End: [...] Date Documented Date Episodic/Chronic Acute myocardial infarction (12 sources) Myocardial infarction; Translations: [Non-ST elevation (NSTEMI) [...] 12-17-19 13 04-22-2023 Chronic Cancer of colon (10 sources) Personal history of other malignant neoplasm [...] Complications of surgical procedures or medical care (6 sources) Postprocedural intestinal obstruction, unspecified as to partial versus complete; 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] Episodic Conditions associated with dizziness or vertigo (20 sources) Dizziness; Translations: [Dizziness and giddiness] Episodic Congestive heart failure; nonhypertensive (20 sources) Acute systolic heart failure; Translations: [Acute systolic (congestive) heart failure] Chronic Coronary atherosclerosis and other heart disease (20 sources) Coronary arteriosclerosis; Translations: [Coronary atherosclerosis of unspecified type of vessel, stebbins or graft] Onset: 06-25-20 Chronic Coronary atherosclerosis [...] 01-10-2003-28-2020 Chronic Other aftercare (2 sources) Other intermediate (current) drug therapy; Translations: [OTH ASSISTED CURRENT DRUG THERAPY] Onset: 01-23-20 Episodic Other [...] in bowel habit Episodic Other gastrointestinal disorders (4 sources) Constipation; Translations: [Constipation, unspecified] Episodic Other [...] substance; Translations: [Other specified health status] Onset: 11-20-1911-20-2023 Episodic Residual codes; unclassified (2 sources) Other specified health status; Translations: [Other specified health status] Onset: 11-20-19 Episodic Skin and subcutaneous tissue infections (2 [...] for Procedure/Surger yon 11-18-2023 Consent for Procedure/Surgery [id number]. 00TIFF [place] Consent for Procedure/Surger yon 11-15-2023 Consent for Procedure/Surgery [id number]. 00TIFF [place] Reminderson 11-14-2023 Reminders - From: Lucero Sutherland To: EU - Recalls Dietrich; Cc: Lucero Sutherland; Sent: 11/14/2023 13:20:30 EST Show up: 01/20/2024 13:20:00 EDT Subject: cysto/fish/cytol Due Date/Time: 02/10/2024 13:20:00 EDT Reminder/Recall Patient will be due in February 2024 for 3 month cysto/fishc/ytol [place] Reminderson 11-13-2023 Reminders - From: Lucero Sutherland To: EU - Recalls [facility]; Cc: Lucero Sutherland; Sent: 05/21/2023 11:05:08 EDT Show up: 09/20/2023 11:05:00 EST Subject: sched turbt Due Date/Time: 10/07/2023 11:05:00 EST Reminder/Recall 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 He cannot stop ASA/Brilinta for 6 months. He needs sched for TURBT once cleared by Dr. Morgan. l/m on pts home machine.LG Patient sched for 12/05/23 at [facility]. Confirmation mailed to pt.[facility] Consultation Noteon 11-12-19 Consultation Note [id number] .00TIFF Normal [facility] Formson 11-08-2023 Forms [id number] .00TIFF Normal [facility] Blood Urea Nitrogenon 2023 Urea nitrogen [Mass/Vol] 19 mg/dL Normal 7-25 [facility] Comment on above: Order Comment: STAT FOR CT Performed By: #### C REAT, BUN #### [place] [id number] [facility] CT enterographyon 10-23-2023 CT enterography [facility] Main [place] [address] [place] [address] CT Scan Report Signed Patient: Kennedy Kong MR#: [id number] : 1935 Acct:[id number] Age/Sex: 88 / M ADM Date: 10/23/23 Loc: CT Room: Type: [facility] Attending Dr: Zofia Gates MD Copies to: [...] Randal Villarreal M.D.10/23/2023 4:06 PM Dictation Location: [place] [address] Transcribed By: [facility] 10/23/23 1606 Dictated By: Randal Villarreal DO 10/23/23 1549 Signed By: 10/23/23 1606 Normal [facility] Calprotectin, Fecalon 2023 Calprotectin, Fecal 35 Normal 0-120 [facility] Comment on above: Result Comment: Conc entration Interpretation Follow-Up < 5 - 50 ug/g Normal None >50 -120 ug/g Borderline Re-evaluate in 4-6 weeks >120 ug/g Abnormal Repeat as clinically indicated Performed at: [facility] [id number] Sap Technical Architect: Danielle Carrington MD, Phone: [phone] PERFORMED BY: [place] [address] PATHOLOGIST JOB DEVELOPER JAMIE MADISON M.D. Performed By: #### H S TROP, LIPID, CBC, BMP #### [facility] [address] [place], [place] [id number] [place] Creatinineon 10-23-2023 Creatinine [Mass/Vol] 1.05 mg/dL Normal 0.70-1.30 [facility] Comment on above: Order Comment: STAT FOR CT Performed By: #### H S TROP, LIPID, CBC, BMP #### [place] [id number] [place] GFR/1.73 sq M.predicted MDRD (S/P/Bld) [Vol rate/Area] mL/min/{1.73_m2} Normal [facility] Comment on above: Order Comment: STAT FOR CT Result Comment: PERF ORMED BY: [place] [address] PATHOLOGIST JOB DEVELOPER JAMIE MADISON M.D. Performed By: #### H S TROP, LIPID, CBC, BMP #### [place] [id number] [facility] Creatinine [Mass/volume] in Serum or PlasmaOrdered By: Impat Gates on 10-23-2023 Creatinine [Mass/Vol] 1.05 mg/dL 0.70-1.30 [facility] No Panel InformationOrdered By: Imad Asaad on 10-23-2023 Estimated GFR (CKD-EPI) > 60.0 mL/Min [facility] Creatinine Clearance (Chem N/A [facility] Urea nitrogen [Mass/volume] in Serum or PlasmaOrdered By: Imad Asaad on 10-23-2023 Urea nitrogen [Mass/Vol] 19 mg/dL 7-25 [facility] LACTATE, BLOODOrdered By: Sa ceasar Dorsey on 10-10-2023 Interpretation and review of laboratory results Normal [facility] Lactate [Moles/Vol] 1.6 mmol/L 0.5 - 1. 6 mmol/L [facility] LT BLUE TOP TUBEon [facility] CBC AND ELECTRONIC DIFFon Basophils (Bld) [#/Vol] K/uL 0.00 - 0.09 K/uL [facility] Basophils/100 WBC (Bld) 0.2 % [facility] Differential cell count method Nom (Bld) Electronic Differential [facility] Eosinophils (Bld) [#/Vol] 0.04 10*3/uL 0.00 - 0.48 K/uL [facility] Eosinophils/100 WBC (Bld) 0.4 % [facility] Erythrocyte distribution width (RBC) [Ratio] 13.9 % 10.9 - 14.3 % [facility] Hematocrit (Bld) [Volume fraction] 44.9 % 39.6 - 48.8 % [facility] Hemoglobin (Bld) [Mass/Vol] 14.4 g/dL 13.4 - 16.8 g/dL [facility] Immature granulocytes (Bld) [#/Vol] K/uL NINF - 0.07 K/uL [facility] Immature granulocytes/100 WBC (Bld) 0.3 % [facility] Interpretation and review of laboratory results Abnormal [facility] Lymphocytes (Bld) [#/Vol] 0.88 10*3/uL 0.83 - 3.57 K/uL [facility] Lymphocytes/100 WBC (Bld) 9.4 % [facility] MCH (RBC) [Entitic mass] 29.7 pg 26.1 - 33.3 pg [facility] MCHC (RBC) [Mass/Vol] 32.1 g/dL 31.9 - 36.5 g/dL [facility] MCV (RBC) [Entitic vol] 92.6 fL 79.0 - 94.5 fL [facility] Monocytes (Bld) [#/Vol] 1.08 10*3/uL High 0.24 - 0.93 K/uL [facility] Monocytes/100 WBC (Bld) 11.5 % [facility] Neutrophils (Bld) [#/Vol] 7.35 10*3/uL High 1.57 - 6.19 K/uL [facility] Nucleated RBC/100 WBC (Bld) [Ratio] 0.0 % NINF [facility] Platelet mean volume (Bld) [Entitic vol] 8.8 fL 8.7 - 12.3 fL [facility] Platelets (Bld) [#/Vol] 206 10*3/uL 146 - 337 K/uL [facility] RBC (Bld) [#/Vol] 4.85 10*6/uL [facility] Segmented neutrophils/100 WBC (Bld) 78.2 % [facility] WBC (Bld) [#/Vol] 9.40 10*3/uL 3.73 - 10.10 K/uL [facility] CHEM 6 (LYTES, BUN CREA)on 12-10-2022 Anion gap [Moles/Vol] 11 mmol/L 7 - 17 mmol/L [facility] Chloride [Moles/Vol] 104 mmol/L 98 - 10 8 mmol/L [facility] CO2 [Moles/Vol] 26 mmol/L 21 - 31 mmol/L [facility] Creatinine [Mass/Vol] 0.97 mg/dL 0.70 - 1.30 mg/dL [facility] eGFR, CKD-EPI, Male 77 - PINF [facility] Comment on above: Reported eGFR is bas ed on the CKD-EPI 2020 equation using creatinine, age, and sex. Potassium [Moles/Vol] 4.0 mmol/L 3.5 - 5.0 mmol/L [facility] Sodium [Moles/Vol] 137 mmol/L 135 - 145 mmol/L [facility] Urea nitrogen [Mass/Vol] 23 mg/dL 7 - 25 mg/dL [facility] Urea nitrogen/Creatinine [Mass ratio] 24 mg/mg [facility] GLUCOSEon 10-09-2023 Glucose [Mass/Vol] 123 mg/dL High 70 - 99 mg/dL [facility] HEPATIC FUNCTION PANELon Albumin [Mass/Vol] 4.4 g/dL 3.5 - 5.0 g/dL [facility] ALP [Catalytic activity/Vol] 57 U/L 32 - 126 U/L [facility] ALT [Catalytic activity/Vol] 8 U/L Low 10 - 52 U/L [facility] AST [Catalytic activity/Vol] 15 U/L 10 - 39 U/L [facility] Bilirubin [Mass/Vol] 0.7 mg/dL NINF - 1.5 mg/dL [facility] Bilirubin.direct [Mass/Vol] 0.2 mg/dL NINF - 0.3 mg/dL [facility] Protein [Mass/Vol] 7.3 g/dL 6.4 - 8.3 g/dL [facility] LIPASEon 10-09-2023 Interpretation and review of laboratory results Normal [facility] Lipase [Catalytic activity/Vol] 12 U/L 11 - 82 U/L [facility] No Panel Informationon 10-09 Interpretation and review of laboratory results Abnormal [facility] Echocardiogramon 06-25-[address], [address] [place] [address] TRANSTHORACIC ECHOCARDIOGRAM REPORT Patient Name: KENNEDY KONG Reading Physician: [id number] Hannah Abraham MD Study Date: 06/25/2023 Referring ADRIEL MORGAN Physician: MRN/PID: [id number] PCP: Nestor Estrella Accession/Order#: [id number] Department [facility] Location: Date of : 1935 Fellow: Gender: M Nurse: Admit Date: Rn Long Term Care: [address] RD, T Height: 177.80 cm CC Report to: Weight: 83.92 kg Study Type: Echocardiogram BSA: 2.02 m2 Blood Pressure: 110 /64 mmHg Diagnosis/ICD: I25.10-Atheroscleroti c heart disease of stebbins coronary artery without angina pectoris; I51.9-Heart disease, unspecified; 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) Indication: Hyperlipidemia, [place] and PTCA-04/22/2023 Procedure/CPT: Echo Complete w Full Doppler-03676 Study Detail: The following Echo studies were [...] mmHg PIEDV: 1.64 m/s PADP: 13.8 mmHg [id number] Hannah Abraham MD Electronically signed on 06/25/2023 at 2:13:32 PM Final Normal [facility] UroVysion Fish and Urine Cyt o ([facility])on 05-17-2023 UVFISH & UC Diagnosis Info Invalid Interpretation Code [facility] Comment on above: Result Comment: A:Ur ine,Urine:Voided [...] correlated with cytology and cystoscopy results.* CPT 77673, 07653. Microscopic Notes - Microscopic Notes - Abnormal cells 9p21 deletions: 34 Abnormal cells aneploid events: 86 Total cells analyzed: 100 Hematuria: Gross Description Site ID:A color Yellow fixative Alcohol Received 70 mls of clearish yellow fluid with the patient's name and, Urine on the vial. Electronically signed by : on: 05/17/2023 11:19:51 Performed By: #### 1 [id number] ####[facility] [address] [place] [address] Consent for Procedure/Surger yon 05-16-2023 Consent for Procedure/Surgery [id number] .00CD:127 Normal [facility] Formson 05-16-2023 Forms [id number] .00CD:127 Normal [facility] Consent for Procedure/Surger yon 05-14-2023 Consent for Procedure/Surgery [id number] .00CD:127 [place] Consent for Treatmenton -2 Consent for Treatment [id number] .00CD:127 [place] IntraOperative Documentson 0 05-14-2023 IntraOperative Documents [id number] .00CD:127 [place] Main OR Intraoperative Recor don 05-14-2023 Main OR Intraoperative Record IntraOp Document Type FTURO Summary Primary Physician: Kylie DIETRICH MD Finalized Date/Time: 05/14/23 14:52:05 Pt. Name: KENNEDY KONG /Sex: 1935 Male Med Rec #: [id number] Physician: Kylie DIETRICH MD Financial #: [id number] Pt. Type: O Room/Bed: / Admit/Disch: 05/14/23 [...] Chrystal Gunter Role Performed Surgeon - Primary Application Project Leader - Primary Scrub - Primary Time In 05/14/23 14:27:00 05/14/23 14:27:00 05/14/23 14:27:00 Time Out 05/14/23 14:48:00 05/14/23 14:48:00 05/14/23 14:48:00 Procedure CYSTOSCOPY LOCAL(.) CYSTOSCOPY LOCAL(.) CYSTOSCOPY LOCAL(.) Comments Last Modified By: Emilee RN, CNOR, Emilee ANDERSON, KANNANOR, Emilee ANDERSON, KANNANOR, Lyric 05/14/23 Lyric 05/14/23 Lyric 05/14/23 14:51:43 14:51:43 14:51:43 Surgical Procedures FTURO Entry 1 Procedure Description Procedure CYSTOSCOPY LOCAL Modifiers . Surgeon Description cysto Primary Procedure Yes Primary Surgeon Kylie DIETRICH MD Start 05/14/23 14:32:00 Stop 05/14/23 14:47:00 Anesthesia Type Local Surgical Service Urology Wound Class 2 - Clean-Contaminated Last Modified By: KANNAN Hebert RNOR, Lyric 05/14/23 14:51:45 General Case Data FTURO [...] neck Last Modified By: PENNY Hebert RN, Lyric 05/14/23 14:51:18 Post-Care Text: The patient [...] Yes Last Modified By: PENNY Hebert RN, Lyric 05/14/23 14:30:53 Post-Care Text: The patient is [...] PENNY Hebert RN, Ruthann 05/14/23 14:52 Normal [facility] Main OR Preoperative Recordo n 05-14-2023 Main OR Preoperative Record Holding Area Document Type FTURO Summary Primary Physician: Kylie DIETRICH MD Finalized Date/Time: 05/14/23 14:28:27 Pt. Name: KENNEDY KONG Jeremi Eisenberg./Sex: 1935 Male Med Rec #: [id number] Physician: Kylie DIETRICH MD Financial #: [id number] Pt. Type: O Room/Bed: / Admit/Disch: 05/14/23 [...] Complaints of Pain: No Skin Integrity Intact, [place], Warm, & Dry Vitals - EU Blood Pressure 128/60 Pulse 73 bpm Respirations 20 br/min SPO2 96 % RN Reviewed Yes Last Modified By: PENNY Hebert RN, Ruthann 05/14/23 14:28:24 General Comments: Temp 98.1 Finalized By: PENNY Hebert RN, Ruthann Document Signatures Signed By: Marilee Vaughn LPN 05/14/23 14:03 PENNY Hebert RN, Ruthann 05/14/23 14:28 Normal [facility] Operative Reporton Operative Report Patient: KENNEDY KONG [...] resection of bladder tumors under general.. Normal [facility] Comment on above: Result Comment: Elec tronically Signed By: KARLO CHOI, Kylie Wing.br\Date and Time Signed: 05/14/23 14:43 EDT Outpatient Surgery Discharge Instructionon 05-14-2023 Outpatient Surgery Discharge Instruction [id number] .00CD:127 Normal [facility] Progress Note-Physicianon Progress Note-Physician Patient: KENNEDY KONG [...] obstruction/lower urinary tract symptoms / SNOMED CT 2042264827 / Confirmed History of ulcerative colitis / SNOMED CT 369297160 / Confirmed Trigeminal neuralgia of right side of face / SNOMED CT 55413222 / Confirmed Hyperlipidemia / SNOMED CT 79283218 / Confirmed Chronic venous insufficiency / SNOMED CT 93611467 / Confirmed Lumbar spondylosis / SNOMED CT 948912553 / Confirmed Right hip pain / SNOMED CT 23253285 / Confirmed Chronic kidney disease / SNOMED CT 5628592973 / Confirmed Gross hematuria / SNOMED CT 117403213 / Confirmed Osteoarthritis of right hip / SNOMED CT 8384772138 / Confirmed Urinary incontinence / SNOMED CT 6043382400 / Confirmed Renal cyst / SNOMED CT 9422044801 / Confirmed Hydrocele / SNOMED CT 8942588462 / Confirmed BMI 24.0-24.9, adult / SNOMED CT 9978421833 / Confirmed Bladder tumor / SNOMED CT 826659 / Confirmed Bladder cancer / SNOMED CT 6699062605 / Confirmed Asymptomatic microscopic hematuria / SNOMED CT 2359392741 / Confirmed UTI (urinary tract infection) / SNOMED CT 853454913 / Confirmed 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 hydrocele: Resolved. Family History: Colon cancer Father () Procedure history: Endoscopic destruction of bladder tumor by laser EVOLVE ([id number]) on 12/13/2020 at 85 Years. TURBT - with left ureteroscopy and left stent placement ([id number]) on 05/26/2020 at 84 Years. Hydrocelectomy ([id number]) in 2001 at 67 Years. colon resection. colonoscopy. Cataract ([id number]). Comments: 10/17/2010 12:31 CESARIO - Martha Mazariegos [...] he then will require more BCG. Normal [facility] Comment on above: Result Comment: Elec tronically Signed By: KARLO CHOI, Kylie Gill\Date and Time Signed: 05/14/23 14:46 EDT Ambulatory Visit Summaryon 0 7-21-2023 Ambulatory Visit Summary KENNEDY KONG :1935 Visit [...] treatment for. colon ca resection hydrocele Normal [facility] UroVysion Fish and Urine Cyt o ([facility])on 05-10-2023 [facility] Method of Extraction Voided Normal [facility] Comment on above: Performed By: #### 1 [id number] ####[facility] [address] [place] [address] [facility] Number of Jars 1 Invalid Interpretation Code [facility] Comment on above: Performed By: #### 1 [id number] ####[facility] [address] [place] [address] [facility] Specimen Urine Normal [facility] Comment on above: Performed By: #### 1 [id number] ####[facility] [address] [place] [address] [facility] Type of Service Technical Only Normal [facility] Comment on above: Performed By: #### 1 [id number] ####[facility] [address] [place] [address] Office Visit (Cardiology)on 05-02-2023 Follow-up visit Diagnoses/Problems [...] Aminotransferase, Serum; Status:Active - Retrospective Authorization; Requested for:[id number]; AST; Status:Active - Retrospective Authorization; Requested for:[id number]; Complete Blood Count; Status:Active - Retrospective Authorization; Requested for:[id number]; Echocardiogram; Status:Hold For - Scheduling,Retrospect phillip Authorization; Requested for:[id number]; Lipid Panel; Status:Active - Retrospective Authorization; Requested for:[id number]; SocHx: Never a smoker Tobacco Use Screening; Status:Complete; Done: [id number] Patient Instructions Please bring all medicines, vitamins, [...] gentleman who returns following recent non-ST elevation WA due to occluded obtuse marginal branch with primary revascularization with drug-eluting stent and is doing well. He has mild LV dysfunction, No significant coronary disease, ejection fraction of 45%. 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 Vitals Vital Signs Recorded: [id number] 11:57AM Heart Rate60, L Radial Fwkgqwih528, LUE, Sitting Lbjqklvhu30, LUE, Sitting Height5 ft 10 in Izfxrm237 lb BMI Gxbupcdebe57.54 kg/m2 BSA Calculated2.02 Tobacco Useb) No PHQ-2 [...] Screening.on 023 Adult depression screening assessment No [facility] Digital Trowel 250 DO Work Phone: Fall risk assessment a) No falls within the last year [facility] Press-sense 250 DO Work Phone: Tobacco use status CPHS b) No M [facility] Press-sense 250 DO Work Phone: Basic Metabolic Panelon Anion gap [Moles/Vol] 10.5 mmol/L Normal 6.0-15.0 [facility] Comment on above: Performed By: #### H S TROP, LIPID, CBC, BMP #### [facility] [address] [place] [id number] [facility] Calcium [Mass/Vol] 8.7 mg/dL Normal 8.6-10.3 [facility] Comment on above: Performed By: #### H S TROP, LIPID, CBC, BMP #### [facility] [address] [place] [address] [place] Chloride [Moles/Vol] 106 mmol/L Normal 98-107 [facility] Comment on above: Performed By: #### H S TROP, LIPID, CBC, BMP #### [facility] [address] [place] [address] [place] CO2 [Moles/Vol] 25.0 mmol/L Normal 21.0-31.0 [facility] Comment on above: Performed By: #### H S TROP, LIPID, CBC, BMP #### [facility] [address] [place] [address] [place] Creatinine [Mass/Vol] 0.99 mg/dL Normal 0.70-1.30 [facility] Comment on above: Performed By: #### H S TROP, LIPID, CBC, BMP #### [facility] [address] [place] [address] [place] Creatinine Clr Calc Pharmacy 55.30 [facility] Comment on above: Performed By: #### H S TROP, LIPID, CBC, BMP #### [facility] [address] [place] [address] [place] GFR/1.73 sq M.predicted MDRD (S/P/Bld) [Vol rate/Area] mL/min/{1.73_m2} [facility] Comment on above: Performed By: #### H S TROP, LIPID, CBC, BMP #### [facility] [address] [place] [address] [place] Glucose [Mass/Vol] 110 mg/dL High 70-100 [facility] Comment on above: Result Comment: [facility] Glucose Reference Range is dependent on time and content of last meal. Glucose of more than 200 mg/dL in a nonstressed, ambulatory subject supports the diagnosis of Diabetes Mellitus. ADA recommended reference range Performed By: #### H S TROP, LIPID, CBC, BMP #### [facility] [address] [place] [address] [place] Potassium [Moles/Vol] 4.5 mmol/L Normal 3.5-5.1 [facility] Comment on above: Performed By: #### H S TROP, LIPID, CBC, BMP #### [facility] [address] [place] [address] [place] Sodium [Moles/Vol] 137 mmol/L Normal 136-145 [facility] Comment on above: Performed By: #### H S TROP, LIPID, CBC, BMP #### [facility] [address] [place] [address] [place] Urea nitrogen [Mass/Vol] 24 mg/dL Normal 7-25 [facility] Comment on above: Performed By: #### H S TROP, LIPID, CBC, BMP #### [facility] [address] Basophils Auto (Bld) [#/Vol] Ordered By: Ko Morgan on 04-23-2023 Basophils (Bld) [#/Vol] 0.1 10*3/uL 0.0-0.2 [facility] Basophils/100 WBC Auto (Bld) Ordered By: Ko Morgan on 04-23-2023 Basophils/100 WBC (Bld) 0.7 % . [facility] Calcium [Mass/volume] in Ser um or PlasmaOrdered By: Ko Morgan on 04-23-2023 Calcium [Mass/Vol] 8.7 mg/dL 8.6-10.3 [facility] Carbon dioxide, total [Moles /volume] in Serum or PlasmaOrdered By: Ko Morgan on 04-23-2023 CO2 [Moles/Vol] 25.0 mmol/L 21.0-31.0 [facility] Chloride [Moles/volume] in S aimee or PlasmaOrdered By: Ko Morgan on 04-23-2023 Chloride [Moles/Vol] 106 mmol/L 98-107 [facility] Cholesterol [Mass/volume] in Serum or PlasmaOrdered By: Ko oMrgan on 04-23-2023 Cholesterol [Mass/Vol] 148 mg/dL 140-200 [facility] Comment on above: Chol less than 200 m g/dl low riskChol 201-239 mg/dl borderline riskChol 240 mg/dl and greater high risk Cholesterol in LDL Calc [Mas s/Vol]Ordered By: Ko Morgan on 04-23-2023 Cholesterol in LDL [Mass/Vol] 73 mg/dL 0-100 [facility] Comment on above: LDL ATP III CLASSIFI CATIONLDL less than 100 mg/dL OptimalLDL 100-129 mg/dL Near or above optimalLDL 130-159 mg/dL Borderline highLDL 160-189 mg/dL HighLDL greater than 189 mg/dL Very high Cholesterol in VLDL Calc [Ma ss/Vol]Ordered By: Ko Morgan on 04-23-2023 Cholesterol in VLDL [Mass/Vol] 19 mg/dL [facility] Complete Blood Count Auto Di ffon 04-23-2023 Basophils (Bld) [#/Vol] 0.1 10*3/uL Normal 0.0-0.2 [facility] Comment on above: Result Comment: PERF ORMED BY: [place] [address] PATHOLOGIST JOB DEVELOPER JAMIE MADISON M.D. Performed By: #### H S TROP, LIPID, CBC, BMP #### [address] Basophils/100 WBC (Bld) 0.7 % Normal . [facility] Comment on above: Performed By: #### H S TROP, LIPID, CBC, BMP #### [address] Eosinophils (Bld) [#/Vol] 0.1 10*3/uL Normal 0.0-0.45 [facility] Comment on above: Performed By: #### H S TROP, LIPID, CBC, BMP #### [address] Eosinophils/100 WBC (Bld) 1.5 % Normal . [facility] Comment on above: Performed By: #### H S TROP, LIPID, CBC, BMP #### [address] Erythrocyte distribution width (RBC) [Ratio] 13.6 % Normal 12.0-14.8 [facility] Comment on above: Performed By: #### H S TROP, LIPID, CBC, BMP #### [address] Hematocrit (Bld) [Volume fraction] 40.6 % Normal 38.8-50.0 [facility] Comment on above: Performed By: #### H S TROP, LIPID, CBC, BMP #### [address] Hemoglobin (Bld) [Mass/Vol] 13.4 g/dL Normal 13.0-17.0 [facility] Comment on above: Performed By: #### H S TROP, LIPID, CBC, BMP #### [address] Lymphocytes (Bld) [#/Vol] 0.9 10*3/uL Low 1.00-4.8 [facility] Comment on above: Performed By: #### H S TROP, LIPID, CBC, BMP #### [address] Lymphocytes/100 WBC (Bld) 10.5 % Normal . [facility] Comment on above: Performed By: #### H S TROP, LIPID, CBC, BMP #### [address] MCH (RBC) [Entitic mass] 29.7 pg Normal 27.5-35.2 [facility] Comment on above: Performed By: #### H S TROP, LIPID, CBC, BMP #### [address] MCV (RBC) [Entitic vol] 89.8 fL Normal 83.5-101 [facility] Comment on above: Performed By: #### H S TROP, LIPID, CBC, BMP #### [address] Mean Corpuscular HGB Conc 33.1 g/dL Normal 32.5-35.6 [facility] Comment on above: Performed By: #### H S TROP, LIPID, CBC, BMP #### [address] Monocytes (Bld) [#/Vol] 1.1 10*3/uL High 0.0-0.8 [facility] Comment on above: Performed By: #### H S TROP, LIPID, CBC, BMP #### [address] Monocytes/100 WBC (Bld) 14.1 % Normal . [facility] Comment on above: Performed By: #### H S TROP, LIPID, CBC, BMP #### [address] Neutrophils (Bld) [#/Vol] 5.9 10*3/uL Normal 1.8-7.7 [facility] Comment on above: Performed By: #### H S TROP, LIPID, CBC, BMP #### [address] Neutrophils/100 WBC (Bld) 73.2 % Normal . [facility] Comment on above: Performed By: #### H S TROP, LIPID, CBC, BMP #### [facility] [address] [place] [address] NRBC% 0.1 /100{WBC} Normal 0-0.5 [facility] Comment on above: Performed By: #### H S TROP, LIPID, CBC, BMP #### [address] Platelet mean volume (Bld) [Entitic vol] 6.8 fL Normal 6.6-10.1 [facility] Comment on above: Performed By: #### H S TROP, LIPID, CBC, BMP #### [address] Platelets (Bld) [#/Vol] 215 10*3/uL Normal 150-450 [facility] Comment on above: Performed By: #### H S TROP, LIPID, CBC, BMP #### [address] RBC (Bld) [#/Vol] 4.52 10*6/uL Normal 3.90-5.60 [facility] Comment on above: Performed By: #### H S TROP, LIPID, CBC, BMP #### [address] WBC (Bld) [#/Vol] 8.1 10*3/uL Normal 4.1-10.5 [facility] Comment on above: Performed By: #### H S TROP, LIPID, CBC, BMP #### [address] Creatinine [Mass/volume] in Serum or PlasmaOrdered By: Ko Morgan on 04-23-2023 Creatinine [Mass/Vol] 0.99 mg/dL 0.70-1.30 [facility] ECG 12 lead ECGon 04-23-2023 ECG 12 lead ECG [facility] [place] [address] Electrocardiograph Report Signed Patient: Kennedy Kong MR#: [id number] : 1935 Acct:[id number] Age/Sex: 87 / M ADM Date: 04/22/23 Loc: Room: [address] [place] [address] Type: ADM IN Attending Dr: Kiki Motta [...] consider inferior injury or acute infarct ACUTE WA / STEMI Abnormal ECG No previous ECGs available Confirmed by RANDAL SRIVASTAVA DO ([id number]) on 04/23/2023 9:23:52 AM Referred By: Electronically Signed By:RANDAL SRIVASTAVA DO Transcribed By: MUS Signed By Randal Srivastava DO 04/23 09 Normal [facility] Eosinophils Auto (Bld) [#/Vo l]Ordered By: Ko Morgan on 04-23-2023 Eosinophils (Bld) [#/Vol] 0.1 10*3/uL 0.0-0.45 [facility] Eosinophils/100 WBC Auto (Bl d)Ordered By: Ko Morgan on 04-23-2023 Eosinophils/100 WBC (Bld) 1.5 % . [facility] Erythrocyte distribution wid th Auto (RBC) [Ratio]Ordered By: Ko Morgan on 04-23-2023 Erythrocyte distribution width (RBC) [Ratio] 13.6 % 12.0-14.8 [facility] Glucose [Mass/volume] in Ser um or PlasmaOrdered By: Ko Morgan on 04-23-2023 Glucose [Mass/Vol] 110 mg/dL 70-100 [facility] Comment on above: ADA recommended refe rence rangeRandom Glucose Reference Range is dependent on time and content of last meal. Glucose of more than 200 mg/dL in a nonstressed, ambulatory subject supports the diagnosis of Diabetes Mellitus. Hematocrit Auto (Bld) [Volum e fraction]Ordered By: Ko Morgan on 04-23-2023 Hematocrit (Bld) [Volume fraction] 40.6 % 38.8-50.0 [facility] Hemoglobin [Mass/volume] in BloodOrdered By: Ko Morgan on 04-23-2023 Hemoglobin (Bld) [Mass/Vol] 13.4 g/dL 13.0-17.0 [facility] Leukocytes [#/volume] correc ramona for nucleated erythrocytes in Blood by Automated counOrdered By: Ko Morgan on 04-23-2023 WBC corrected for nucl RBC Auto (Bld) [#/Vol] 8.1 10*3/uL 4.1-10.5 [facility] Lipid Panelon 04-23-2023 Cholesterol [Mass/Vol] 148 mg/dL Normal 140-200 [facility] Comment on above: Result Comment: Chol less than 200 mg/dl low risk Chol 201-239 mg/dl borderline risk Chol 240 mg/dl and greater high risk Performed By: #### H S TROP, LIPID, CBC, BMP #### [facility] [address] Cholesterol in HDL [Mass/Vol] 56 mg/dL Normal 23-92 [facility] Comment on above: Result Comment: HDL CHOL ATP-III CLASSIFICATION Cardiovascular Risk HDL > or equal to 60 mg/dL LOW HDL < 40 mg/dL HIGH Performed By: #### H S TROP, LIPID, CBC, BMP #### [facility] [address] Cholesterol.total/Drea sterol in HDL [Mass ratio] 2.6 {ratio} Normal <5.0 [facility] Comment on above: Result Comment: PERF ORMED BY: [facility] [address] [place] [address] PATHOLOGIST JOB DEVELOPER JAMIE MADISON M.D. Performed By: #### H S TROP, LIPID, CBC, BMP #### [facility] [address] LDL Cholesterol,Calculated 73 mg/dL Normal 0-100 [facility] Comment on above: Result Comment: LDL ATP III CLASSIFICATION LDL less than 100 mg/dL Optimal LDL 100-129 mg/dL Near or above optimal LDL 130-159 mg/dL Borderline high LDL 160-189 mg/dL High LDL greater than 189 mg/dL Very high Performed By: #### H S TROP, LIPID, CBC, BMP #### [facility] [address] Triglyceride w/Reflex 97 mg/dL Normal 0-149 [facility] Comment on above: Result Comment: TRIG ATP III CLASSIFICATION TRIG less than 150 mg/dL Normal TRIG 150-199 mg/dL Borderline high TRIG 200-500 mg/dL High TRIG greater than 500 mg/dL Very high Standard traceable to the Center for Disease Conrtrol and Prevention (CDC) test method. Performed By: #### H S TROP, LIPID, CBC, BMP #### [facility] [address] VLDL CHOLESTEROL 19 mg/dL Normal [facility] Comment on above: Performed By: #### H S TROP, LIPID, CBC, BMP #### [facility] [address] Lymphocytes Auto (Bld) [#/Vo l]Ordered By: Ko Morgan on 04-23-2023 Lymphocytes (Bld) [#/Vol] 0.9 10*3/uL 1.00-4.8 [facility] Lymphocytes/100 WBC Auto (Bl d)Ordered By: Ko Morgan on 04-23-2023 Lymphocytes/100 WBC (Bld) 10.5 % . [facility] MCH Auto (RBC) [Entitic mass ]Ordered By: Ko Morgan on 04-23-2023 MCH (RBC) [Entitic mass] 29.7 pg 27.5-35.2 [facility] MCHC Auto (RBC) [Mass/Vol]Or dered By: Ko Morgan on 04-23-2023 MCHC (RBC) [Mass/Vol] 33.1 g/dL 32.5-35.6 [facility] MCV Auto (RBC) [Entitic vol] Ordered By: Ko Morgan on 04-23-2023 MCV (RBC) [Entitic vol] 89.8 fL 83.5-101 [facility] Monocytes Auto (Bld) [#/Vol] Ordered By: Ko Morgan on 04-23-2023 Monocytes (Bld) [#/Vol] 1.1 10*3/uL 0.0-0.8 [facility] Monocytes/100 WBC Auto (Bld) Ordered By: Ko Morgan on 04-23-2023 Monocytes/100 WBC (Bld) 14.1 % . [facility] Neutrophils Auto (Bld) [#/Vo l]Ordered By: Ko Morgan on 04-23-2023 Neutrophils (Bld) [#/Vol] 5.9 10*3/uL 1.8-7.7 [facility] Neutrophils/100 WBC Auto (Bl d)Ordered By: Ko Morgan on 04-23-2023 Neutrophils/100 WBC (Bld) 73.2 % . [facility] No Panel InformationOrdered By: Ko Morgan on 04-23-2023 Estimated GFR (CKD-EPI) > 60.0 mL/Min [facility] Creatinine Clearance (Chem 55.30 [facility] Nucleated erythrocytes [Pres ence] in Blood by Automated countOrdered By: Ko Morgan on 04-23-2023 Nucleated RBC Auto Ql (Bld) 0.1 /100{WBC} 0-0.5 [facility] Platelet mean volume Auto (B ld) [Entitic vol]Ordered By: Ko Morgan on 04-23-2023 Platelet mean volume (Bld) [Entitic vol] 6.8 fL 6.6-10.1 [facility] Platelets Auto (Bld) [#/Vol] Ordered By: Ko Morgan on 04-23-2023 Platelets (Bld) [#/Vol] 215 10*3/uL 150-450 [facility] Potassium [Moles/volume] in Serum or PlasmaOrdered By: Ko Moragn on 04-23-2023 Potassium [Moles/Vol] 4.5 mmol/L 3.5-5.1 [facility] RBC Auto (Bld) [#/Vol]Ordere d By: Ko Morgan on 04-23-2023 RBC (Bld) [#/Vol] 4.52 10*6/uL 3.90-5.60 [facility] Serum or plasma anion gap de terminationOrdered By: Ko Morgan on 04-23-2023 Anion gap [Moles/Vol] 10.5 mmol/L 6.0-15.0 [facility] Serum or plasma high density lipoprotein (HDL) cholesterol measurementOrdered By: Ko Morgan on 04-23-2023 Cholesterol in HDL [Mass/Vol] 56 mg/dL 23-92 [facility] Comment on above: HDL CHOL ATP-III CLA SSIFICATION Cardiovascular RiskHDL > or equal to 60 mg/dL LOWHDL < 40 mg/dL HIGH Serum or plasma total choles terol/high density lipoprotein (HDL) cholesterol mass ratOrdered By: Ko Morgan on 04-23-2023 Cholesterol.total/Drea sterol in HDL [Mass ratio] 2.6 {ratio} <5.0 [facility] Sodium [Moles/volume] in Ser um or PlasmaOrdered By: Ko Morgan on 04-23-2023 Sodium [Moles/Vol] 137 mmol/L 136-145 [facility] Triglyceride [Mass/volume] i n Serum or PlasmaOrdered By: Ko Morgan on 04-23-2023 Triglyceride [Mass/Vol] 97 mg/dL 0-149 [facility] Comment on above: TRIG ATP III CLASSIF ICATIONTRIG less than 150 mg/dL NormalTRIG 150-199 mg/dL Borderline highTRIG 200-500 mg/dL High TRIG greater than 500 mg/dL Very highStandard traceable to the Center for Disease Conrtrol and Prevention (CDC) test method. Troponin I High Sensitivityo n 04-23-2023 Troponin I High Sensitivity 61199.2 pg/mL Off scale high 0.0-20.0 [facility] Comment on above: Result Comment: Crit ical Result : Called to and read back by: STACY JACKSON at: 04/23/2023 04:24:25 by:[id number] PERFORMED BY: [place] [address] PATHOLOGIST JOB DEVELOPER JAMIE MADISON M.D. Performed By: #### H S TROP, LIPID, CBC, BMP #### [facility] [address] [place] [address] [facility] Troponin I High Sensitivity 52797.0 pg/mL Off scale high 0.0-20.0 [facility] Comment on above: Result Comment: Crit ical Result I_TnIHS_d:20361.0 Called to and read back by: STACY JACKSON at: 04/23/2023 00:43:35 by:[id number] PERFORMED BY: [place] [address] PATHOLOGIST JOB DEVELOPER JAMIE MADISON M.D. Performed By: #### H S TROP #### [address] [address] Troponin I.cardiac [Mass/vol ume] in Serum or Plasma by Detection limit <= 0.01 ng/Ordered By: Ko Morgan on 04-23-2023 Troponin I.cardiac DL <= 0.01 ng/mL [Mass/Vol] 36485.2 pg/mL 0.0-20.0 [facility] Comment on above: Critical Result : Ca lled to and read back by: STACY JACKSON at: 04/23/2023 04:24:25 by:[id number] Urea nitrogen [Mass/volume] in Serum or PlasmaOrdered By: Ko Morgan on 04-23-2023 Urea nitrogen [Mass/Vol] 24 mg/dL 7-25 [facility] WBC Auto (Bld) [#/Vol]Ordere d By: Ko Morgan on 04-23-2023 WBC (Bld) [#/Vol] 8.1 10*3/uL 4.1-10.5 [facility] ECG 12 lead ECGon 04-22-2023 ECG 12 lead ECG [facility] [place] [address] [place] [address] Electrocardiograph Report Signed Patient: Kennedy Kong MR#: [id number] : 1935 Acct:[id number] Age/Sex: 87 / M ADM Date: 04/22/23 Loc: Room: [address] [place] [address] Type: ADM IN Attending Dr: Kiki Motta [...] ([id number]) on 04/23/2023 9:23:38 AM Referred By: NO Electronically Signed By:RANDAL SRIVASTAVA DO Transcribed By: MUS Signed By Randal Srivastava DO 04/23 09 Normal [facility] Troponin I High Sensitivityo n 04-22-2023 Troponin I High Sensitivity 49353.2 pg/mL Off scale high 0.0-20.0 [facility] Comment on above: Result Comment: Crit ical Result I_TnIHS_d:59576.2 Called to and read back by: STACY JACKSON at: 04/22/2023 20:59:13 by:[id number] PERFORMED BY: [place] [id number] PATHOLOGIST JOB DEVELOPER JAMIE MADISON M.D. Performed By: #### H S TROP #### [address] Troponin I High Sensitivity 36225.7 pg/mL Off scale high 0.0-20.0 [facility] Comment on above: Result Comment: Crit ical Result I_TnIHS_d:12543.7 Called to and read back by: IRIS MARQUES at: 04/22/2023 18:09:03 by:[id number] PERFORMED BY: [place] [address] PATHOLOGIST JOB DEVELOPER JAMIE MADISON M.D. Performed By: #### H S TROP, LIPID, CBC, BMP #### [facility] [address] [place] [address] Troponin I High Sensitivity 12503.8 pg/mL Off scale high 0.0-20.0 [facility] Comment on above: Result Comment: Crit ical Result : Called to and read back by: IRIS MARQUES at: 04/22/2023 16:04 by:[id number] PERFORMED BY: [place] [address] PATHOLOGIST JOB DEVELOPER JAMIE MADISON M.D. Performed By: #### H S TROP, LIPID, CBC, BMP #### [address] Consent for Procedure/Surger yon 04-09-2023 Consent for Procedure/Surgery [id number]. 00CD:127 Normal [facility] Ambulatory Visit Summaryon 0 04-08-2023 Ambulatory Visit Summary KENNEDY KONG :1935 Visit Date:04/08/2023 Ambulatory Visit Instructions Your Diagnosis Asymptomatic microscopic hematuria Tests Performed Urnls Dip Stick Auto w/o Microscopy POC 78877 Your Care Team Attending Physician - KARLO [...] Urnls Dip Stick Auto w/o Microscopy POC 45895 (04/08/2023) Bilirubin Urine Dipstick - Negative Blood Urine Dipstick - Negative Glucose Urine Dipstick - Negative Ketones Urine Dipstick - Negative Leukocytes Urine Dipstick - Negative Nitrite Urine Dipstick - Negative Protein Urine Dipstick - Negative Specific [place] Urine Dipstick - 1.025 Urine Appearance Urine [...] treatment for. colon ca resection hydrocele Normal [facility] Ambulatory Visit Summaryon 0 03-11-2023 Ambulatory Visit Summary KENNEDY KONG :1935 Visit Date:03/11/2023 Ambulatory Visit Instructions Your Diagnosis Bladder cancer Tests Performed Urnls Dip Stick Auto w/o Microscopy POC 03055 Your Care Team Attending Physician - Kylie [...] Urnls Dip Stick Auto w/o Microscopy POC 94857 (03/11/2023) Bilirubin Urine Dipstick - Negative Blood Urine Dipstick - 2+ Moderate Glucose Urine Dipstick - Negative Ketones Urine Dipstick - Negative Leukocytes Urine Dipstick - Negative Nitrite Urine Dipstick - Negative Protein Urine Dipstick - Negative Specific [place] Urine Dipstick - 1.025 Urine Appearance Urine [...] receiving treatment for. 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 FOLDER Lab Reportson 01-15-2023 Lab Reports [id number] .00CD:127 [place] CNOVon 01-14-2023 CNOV Office Visit ([facility] ) KENNEDY KONG ([id number]) 1935 M Date Time Provider Department 01/14/23 3:00 PM AVEL CAMACHO [facility] During your visit today, we recorded the [...] No Drains: No Referring Provider: AVEL CAMACHO [[id number]] Allergies As of Date: 01/14/2023 Noted Allergy Reaction AMOXICILLIN 04/28/2013 14 - Other: See Comments Comments: Pt gets sores in mouth Date Reviewed: 01/14/2023 Reviewed by: Micaela Henderson MA - Fully Assessed Reason for Visit: Established Patient Follow-Up [[id number]] Cmt: Reoccuring bowel blockage Primary Visit Diagnosis:Irregular [...] Status:Closed by AVEL CAMACHO on 01/17/23 Normal [place] Operative Reporton Operative Report [id number]. 00CD:127 Normal [facility] Operative Reporton 3 Operative Report [id number] .00CD:127 Normal [facility] CBC AUTO DIFFon 12-27-2022 BASO # 0.0 103/ul Normal 0.0-0.1 [facility] Comment on above: Performed By: #### C BC ####[facility] [address] [place] [address]Dr. Cipriano Patton Basophils/100 WBC (Bld) 0.6 % Normal 0.2-2.0 [facility] Comment on above: Performed By: #### C BC ####[facility] [address] [place], [place] [address]Dr. Cipriano Patton EO # 0.5 103/ul Normal 0.0-0.7 [facility] Comment on above: Performed By: #### C BC ####[facility] [address] [place], [place] [address]Dr. Cipriano Patton Eosinophils/100 WBC (Bld) 7.0 % Normal 0.9-7.0 [facility] Comment on above: Performed By: #### C BC ####[facility] [address] [place], [place] [address]Dr. Cipriano Patton Erythrocyte distribution width (RBC) [Ratio] 13.6 % Normal 11.0-15.0 [facility] Comment on above: Performed By: #### C BC ####[facility] [address] [place], [place] [address]Dr. Cipriano Patton Hematocrit (Bld) [Volume fraction] 41.9 % Critically low 42.0-54.0 [facility] Comment on above: Performed By: #### C BC ####[facility] [address] [place], [place] [address]Dr. Cipriano Patton Hemoglobin (Bld) [Mass/Vol] 13.7 g/dL Critically low 14.0-18.0 [facility] Comment on above: Performed By: #### C BC ####[facility] [address] [place] [id number]. Cipriano Patton IG # 0.01 10e3/ul Normal 0.00-0.03 [facility] Comment on above: Performed By: #### C BC ####[facility] [address] [place] [address]Dr. Cipriano Abdi IG % 0.2 % Normal 0.0-0.5 [facility] Comment on above: Performed By: #### C BC ####[facility] [address] [place] [address]Dr. Cipriano Abdi LYMPH # 1.3 103/ul Normal 1.2-3.8 [facility] Comment on above: Performed By: #### C BC ####[facility] [address] [place], [place] [address]Dr. Carolejennifer Patton Lymphocytes/100 WBC (Bld) 19.5 % Critically low 20.5-60.0 [facility] Comment on above: Performed By: #### C BC ####[facility] [address] [place] [address]Dr. Carolejennifer Patton MANUAL DIFF REQ NO Normal [facility] Comment on above: Performed By: #### C BC ####[facility] [address] [place] [address]Dr. Cipriano Patton MCH (RBC) [Entitic mass] 29.4 pg Normal 25.9-34.0 [facility] Comment on above: Performed By: #### C BC ####[facility] [address] [place], [place] [address]Dr. Cipriano Patton MCHC (RBC) [Mass/Vol] 32.7 g/dL Normal 29.9-35.2 [facility] Comment on above: Performed By: #### C BC ####[facility] [address] [place], [place] [address]DrWesley Cipriano Abdi MCV (RBC) [Entitic vol] 89.9 fL Normal 80.0-94.0 [facility] Comment on above: Performed By: #### C BC ####[facility] [address] [place] [address]Dz. Cipriano Patton MONO # 0.9 103/ul Critically high 0.3-0.8 [facility] Comment on above: Performed By: #### C BC ####[facility] [address] [place] [address]Dr. Cipriano Patton Monocytes/100 WBC (Bld) 14.7 % Critically high 1.7-12. 0 [facility] Comment on above: Performed By: #### C BC ####[facility] [address] [place] [address]Dr. Cipriano Patton NEUT # 3.7 103/ul Normal 1.4-6.5 [facility] Comment on above: Performed By: #### C BC ####[facility] [address] [place], [place] [address]Dr. Cipriano Patton Neutrophils/100 WBC (Bld) 58.0 % Normal 43.0-75.0 [facility] Comment on above: Performed By: #### C BC ####[facility] [address] [place] [address]Dr. Cipriano Patton Platelet mean volume (Bld) [Entitic vol] 8.5 fL Critically low 9.5-13.5 [facility] Comment on above: Performed By: #### C BC ####[facility] [address]ke[address] [place] [address]Dr. Cipriano Patton PLT 215 103/ul Normal 150-450 [facility] Comment on above: Performed By: #### C BC ####[facility] [address] [place], [place] [address]Dr. Cipriano Patton RBC 4.66 106/ul Critically low 4.70-6.10 [facility] Comment on above: Performed By: #### C BC ####[facility] I[address] [place], [place] [address]Dr. Cipriano Patton WBC 6.4 103/ul Normal 4.0-11.0 [facility] Comment on above: Performed By: #### C BC ####[facility] [address]fotsfqu[address] [place], [place] [address]Dr. Cipriano Patton Complete Blood Count and Dif marci 12-27-2022 Anisocytosis Ql (Bld) Nor [facility] [place] Other Basophilic stippling LM Ql (Bld) [facility] [place] Other RBC morphology finding Nom (Bld) [place] Other Complete Blood Count and Diff [facility] [place] Other FERRITINon 12-27-2022 Ferritin [Mass/Vol] 130.0 ng/mL Normal 26.0-388.0 [facility] Comment on above: Performed By: #### F ERR, FETIBC, B12FOL ####[facility] [address] [place] [address]Dr. Cipriano Patton IRON AND TIBCon 12-27-2022 Iron [Mass/Vol] 91.5783440 ug/dL 65.0-175 .0 ug/dL [facility] [place] Other IRON AND TIBC 257.0 ug/dL 250.0-450.0 ug/dL [facility] [place] Other IRON AND TIBC 35.4 % [employer] [facility] [place] Other IRON AND TIBC see note [facility] [place] Other % SATURATION 35.4 % Normal [facility] Comment on above: Performed By: #### F ERR, FETIBC, B12FOL ####[facility] [address] [place] [address]Dr. Cipriano Abdi Iron [Mass/Vol] 91.0 ug/dL Normal 65.0-175.0 [facility] Comment on above: Performed By: #### F ERR, FETIBC, B12FOL ####[facility] [address] [place] [address]Dr. Cipriano Abdi TIBC DIRECT 257.0 ug/dL Normal 250.0-450.0 [facility] Comment on above: Performed By: #### F ERR, FETIBC, B12FOL ####[facility] [address] [place] [address]Dr. Cipriano Patton VIT B12 AND FOLATEon 023 Cobalamin (Vitamin B12) [Mass/Vol] 411.3620106 pg/mL 193.0-986.0 pg/mL [employer] [facility] [place] Other VIT B12 AND FOLATE 27.50 ng/mL 8.60-58.9 0 ng/mL [employer] [facility] [place] Other Cobalamin (Vitamin B12) [Mass/Vol] 628.0 pg/mL Normal 193.0-986.0 [facility] Comment on above: Performed By: #### F ERR, FETIBC, B12FOL ####[facility] [address] [place] [address]DrWesley Patton FOLATE 27.50 ng/mL Normal 8.60-58.90 [facility] Comment on above: Performed By: #### F ERR, FETIBC, B12FOL ####[facility] [address] [place] [address]Dr. Cipriano Patton Consent for Procedure/Surger yon 12-10-2022 Consent for Procedure/Surgery [id number]:127 Normal [facility] Consent for Procedure/Surger yon 11-27-2022 Consent for Procedure/Surgery [id number]:127 Normal [facility] CBC,PLATELETSon 11-05-2022 Hematocrit (Bld) [Volume fraction] 40.7 % Normal 39.6-48.8 [facility] Comment on above: Performed By: #### ARCHIE GREENE, CHM7 #### Ricarda [facility] (DEFAULT) [address] [address] Hemoglobin (Bld) [Mass/Vol] 13.5 g/dL Normal 13.4-16.8 [facility] Comment on above: Performed By: #### ARCHIE GREENE, CHM7 #### [facility] (DEFAULT) [address] [address] MCV (RBC) [Entitic vol] 89.1 fL Normal 79.0-94.5 O [facility] Comment on above: Performed By: #### ARCHIE GREENE, CHM7 #### U [facility] (DEFAULT) [address] [place] [address] Mean Cell Hgb 29.5 pg Normal 26.1-33.3 [facility] Comment on above: Performed By: #### ARCHIE GREENE, CHM7 #### U [facility] (DEFAULT) [address] [place] [address] 69608 Mean Cell Hgb Conc 33.2 g/dL Normal 31.9-36.5 [facility] Comment on above: Performed By: #### ARCHIE GREENE, CHM7 #### U [facility] (DEFAULT) [address] [place] [address] Platelet mean volume (Bld) [Entitic vol] 9.1 fL Normal 8.7-12.3 [facility] Comment on above: Performed By: #### ARCHIE GREENE, CHM7 #### [facility] (DEFAULT) [address] [place] [address] 11947 Platelets (Bld) [#/Vol] 209 10*3/uL Normal 146-337 [facility] Comment on above: Performed By: #### ARCHIE GREENE, CHM7 #### U [facility] (DEFAULT) [address] [place] [address]11 RBC (Bld) [#/Vol] 4.57 10*6/uL Normal 4.38-5.83 [facility] Comment on above: Performed By: #### ARCHIE GREENE, CHM7 #### U [facility] (DEFAULT) [address] [place] [address] 73570 RBC Distribution 12.9 % Normal 10.9-14.[address] [facility] Comment on above: Performed By: #### ARCHIE GREENE, CHM7 #### U [facility] (DEFAULT) [address] [place] [address] 38120 WBC (Bld) [#/Vol] 6.15 10*3/uL Normal 3.73-10.10 [facility] Comment on above: Performed By: #### ARCHIE GREENE, CHM7 #### [place] [facility] (DEFAULT) [address] [place] [address] CHEM 7 (LYTES,BUN,CREA,GLUC) on 11-05-2022 Anion gap [Moles/Vol] 15 mmol/L Normal 7-17 [facility] Comment on above: Performed By: #### ARCHIE GREENE, CHM7 #### [place] [facility] (DEFAULT) [address] [place] [address] 86332 Chloride [Moles/Vol] 105 mmol/L Normal 98-108 [facility] Comment on above: Performed By: #### ARCHIE GREENE, CHM7 #### [place] [facility] (DEFAULT) [address] [place] [address] 22179 CO2 [Moles/Vol] 22 mmol/L Normal 21-31 [facility] Comment on above: Performed By: #### ARCHIE GREENE, CHM7 #### U [facility] (DEFAULT) [address] [place] [address] 23111 Creatinine [Mass/Vol] 1.05 mg/dL Normal 0.70-1.30 [facility] Comment on above: Performed By: #### ARCHIE GREENE, CHM7 #### U [facility] (DEFAULT) [address] [place] [address] GFR/1.73 sq M.predicted among non-blacks MDRD (S/P/Bld) [Vol rate/Area] 69 mL/min/{1.73_m2} Normal >=60 [facility] Comment on above: Result Comment: Repo rted eGFR is based on the CKD-EPI 2020 equation using creatinine, age, and sex. Performed By: #### ARCHIE GREENE, CHM7 #### [place] (DEFAULT) [address] [place] [address] 87039 Glucose [Mass/Vol] 68 mg/dL Low 70-99 [facility] Comment on above: Performed By: #### ARCHIE GREENE, CHM7 #### U [facility] (DEFAULT) [address] [place] [address] 15966 Osmolality [Osmolality] 289 mosm/kg Normal 278-305 [facility] Comment on above: Performed By: #### ARCHIE GREENE, CHM7 #### U [facility] (DEFAULT) [address] [place] [address] 20523 Potassium [Moles/Vol] 4.2 mmol/L Normal 3.5-5.0 [facility] Comment on above: Performed By: #### Dinora BIRMINGHAM HFP, CHM7 #### U [facility] (DEFAULT) [address] [place] [address] 03497 Sodium [Moles/Vol] 138 mmol/L Normal 135-145 [facility] Comment on above: Performed By: #### ARCHIE GREENE, CHM7 #### U [facility] (DEFAULT) [address] [place] [address] 28890 Urea nitrogen [Mass/Vol] 17 mg/dL Normal 7-25 [facility] Comment on above: Performed By: #### ARCHIE GREENE, CHM7 #### U [facility] (DEFAULT) [address] [place] [address] 73284 Urea nitrogen/Creatinine [Mass ratio] 16 mg/mg Normal [facility] Comment on above: Performed By: #### ARCHIE GREENE, CHM7 #### U [facility] (DEFAULT) [address] [place] [address] 00060 HEPATIC FUNCTION PANELon Albumin [Mass/Vol] 3.4 g/dL Low 3.5-5.0 [facility] Comment on above: Performed By: #### ARCHIE GREENE, CHM7 #### U [facility] (DEFAULT) [address] [place] [address] 92287 ALP [Catalytic activity/Vol] 47 U/L Normal 32-126 [facility] Comment on above: Performed By: #### M ACRHIE BIRMINGHAM, CHM7 #### U [facility] (DEFAULT) [address] [place] [address] 16223 ALT [Catalytic activity/Vol] 6 U/L Low 10-52 [facility] Comment on above: Performed By: #### ARCHIE GREENE, CHM7 #### U [facility] (DEFAULT) [address] [place] [address] 54327 AST [Catalytic activity/Vol] 14 U/L Normal 10-39 [facility] Comment on above: Performed By: #### ARCHIE GREENE, CHM7 #### U [facility] (DEFAULT) [address] [place] [address] 26625 Bilirubin [Mass/Vol] 0.7 mg/dL Normal <1.5 [facility] Comment on above: Performed By: #### Dinora BIRMINGHAM HFP, CHM7 #### [facility] (DEFAULT) [address] [place] [address]358 Bilirubin.indirect [Mass/Vol] 0.1 mg/dL Normal <0.3 [facility] Comment on above: Performed By: #### M VALENCIA HFP, CHM7 #### [facility] (DEFAULT) [address] [place] [address] 76582 Protein [Mass/Vol] 5.9 g/dL Low 6.4-8.3 [facility] Comment on above: Performed By: #### M VALENCIA HFP, CHM7 #### [facility] (DEFAULT) [address] [place] [address] MAGNESIUMon 11-05-2022 Magnesium [Mass/Vol] 1.9 mg/dL Normal 1.6-2.6 [facility] Comment on above: Performed By: #### Dinora BIRMINGHAM, HFP, CHM7 #### [facility] (DEFAULT) [address] [place] [address] 74005 PT,INR,PTTon 11-05-2022 aPTT Coag (Bld) [Time] 33.6 s Normal 24.0-34.3 [facility] Comment on above: Performed By: #### M ARCHIE BIRMINGHAM, CHM7 #### [place] [facility] (DEFAULT) [address] [address] INR Coag (PPP) [Relative time] 1.2 {INR} High 0.9-1.1 [facility] Comment on above: Performed By: #### M ARCHIE BIRMINGHAM, CHM7 #### [place] [facility] (DEFAULT) [address] [address] PT Coag (PPP) [Time] 14.8 s High 11.9-14.2 [facility] Comment on above: Performed By: #### ARCHIE GREENE, CHM7 #### [facility] (DEFAULT) [address] [address] CBC,PLATELETSon 11-04-2022 Hematocrit (Bld) [Volume fraction] 37.3 % Low 39.6-48.8 [facility] Comment on above: Performed By: #### H [facility] #### [facility] (DEFAULT) [address] [place] [address] Hemoglobin (Bld) [Mass/Vol] 12.5 g/dL Low 13.4-16.8 [facility] Comment on above: Performed By: #### H EMO #### [facility] (DEFAULT) [address] [address] MCV (RBC) [Entitic vol] 88.4 fL Normal 79.0-94.5 O [facility] Comment on above: Performed By: #### H EMO #### [facility] (DEFAULT) [address] [address] Mean Cell Hgb 29.6 pg Normal 26.1-33.3 [facility] Comment on above: Performed By: #### H EMO #### [facility] (DEFAULT) [address] [place] [address] 08973 Mean Cell Hgb Conc 33.5 g/dL Normal 31.9-36.5 [facility] Comment on above: Performed By: #### H EMOGC #### U [facility] (DEFAULT) [address] [place] [address] 94499 Platelet mean volume (Bld) [Entitic vol] 9.0 fL Normal 8.7-12.3 [facility] Comment on above: Performed By: #### H EMOGC #### [place] [facility] (DEFAULT) [address] [place] [address] Platelets (Bld) [#/Vol] 198 10*3/uL Normal 146-337 [facility] Comment on above: Performed By: #### H EMOGC #### [place] [facility] (DEFAULT) [address] [address] RBC (Bld) [#/Vol] 4.22 10*6/uL Low 4.38-5.83 [facility] Comment on above: Performed By: #### H EMOGC #### [place] [facility] (DEFAULT) [address] [address] RBC Distribution 12.9 % Normal 10.9-14.[address] [facility] Comment on above: Performed By: #### H EMOGC #### [facility] (DEFAULT) [address] [place] [address] WBC (Bld) [#/Vol] 5.77 10*3/uL Normal 3.73-10.10 [facility] Comment on above: Performed By: #### H EMOGC #### U [facility] (DEFAULT) [address] [address] CHEM 7 (LYTES,BUN,CREA,GLUC) on 11-04-2022 Anion gap [Moles/Vol] 10 mmol/L Normal 7-17 [facility] Comment on above: Performed By: #### M GO, HFP, CHM7 #### [facility] (DEFAULT) [address] [place] [address] 08751 Chloride [Moles/Vol] 108 mmol/L Normal 98-108 [facility] Comment on above: Performed By: #### ARCHIE GREENE, CHM7 #### U [facility] (DEFAULT) [address] [place] [address] 07905 CO2 [Moles/Vol] 22 mmol/L Normal 21-31 [facility] Comment on above: Performed By: #### ARCHIE GREENE, CHM7 #### U [facility] (DEFAULT) [address] [place] [address] 71862 Creatinine [Mass/Vol] 0.91 mg/dL Normal 0.70-1.30 [facility] Comment on above: Performed By: #### ARCHIE GREENE, CHM7 #### U [facility] (DEFAULT) [address] [place] [address]797 GFR/1.73 sq M.predicted among non-blacks MDRD (S/P/Bld) [Vol rate/Area] 82 mL/min/{1.73_m2} Normal >=60 [facility] Comment on above: Result Comment: Repo rted eGFR is based on the CKD-EPI 2020 equation using creatinine, age, and sex. Performed By: #### ARCHIE GREENE, CHM7 #### U [facility] (DEFAULT) [address] [place] [address]255 Glucose [Mass/Vol] 81 mg/dL Normal 70-99 [facility] Comment on above: Performed By: #### ARCHIE GREENE, CHM7 #### U [facility] (DEFAULT) [address] [place] [address] 19922 Osmolality [Osmolality] 285 mosm/kg Normal 278-305 [facility] Comment on above: Performed By: #### ARCHIE GREENE, CHM7 #### U [facility] (DEFAULT) [address] [place] [address] 08725 Potassium [Moles/Vol] 4.0 mmol/L Normal 3.5-5.0 [facility] Comment on above: Performed By: #### M ARCHIE BIRMINGHAM, CHM7 #### U [facility] (DEFAULT) [address] [place] [address] 97967 Sodium [Moles/Vol] 136 mmol/L Normal 135-145 [facility] Comment on above: Performed By: #### ARCHIE GREENE, CHM7 #### U [facility] (DEFAULT) [address] [place] [address] 06460 Urea nitrogen [Mass/Vol] 15 mg/dL Normal 7-25 [facility] Comment on above: Performed By: #### ARCHIE GREENE, CHM7 #### U [facility] (DEFAULT) [address] [place] [address] 68135 Urea nitrogen/Creatinine [Mass ratio] 16 mg/mg Normal [facility] Comment on above: Performed By: #### ARCHIE GREENE, CHM7 #### U [facility] (DEFAULT) [address] [place] [address] ABDOMEN/ABDOMEN-PELVIS (I NTERPRETATION - OUTSIDE IMAGE)on [...] disease in the abdomen or pelvis. Normal [facility] CT Abdomen and Pelvison 10-21 IMPRESSION: [...] metastatic disease in the abdomen or pelvis. [facility] Radiology Study observation (narrative) [facility] CT Abdomen and PelvisOrdered By: Samantha Saldaña on 11-04-2022 [facility] Work Phone: HEPATIC FUNCTION PANELon Albumin [Mass/Vol] 3.2 g/dL Low 3.5-5.0 [facility] Comment on above: Performed By: #### M ARCHIE BIRMINGHAM, CHM7 #### [facility] (DEFAULT) [address] [place] [address] ALP [Catalytic activity/Vol] 41 U/L Normal 32-126 [facility] Comment on above: Performed By: #### ARCHIE GREENE, CHM7 #### [facility] (DEFAULT) [address] [place] [address] 91551 ALT [Catalytic activity/Vol] 7 U/L Low 10-52 [facility] Comment on above: Performed By: #### Dinora BIRMINGHAM HFP, CHM7 #### [facility] (DEFAULT) [address] [place] [address] AST [Catalytic activity/Vol] 13 U/L Normal 10-39 [facility] Comment on above: Performed By: #### M VALENCIA, HFP, CHM7 #### [facility] (DEFAULT) [address] [place] [address] Bilirubin [Mass/Vol] 0.6 mg/dL Normal <1.5 [facility] Comment on above: Performed By: #### Dinora BIRMINGHAM HFP, CHM7 #### [facility] (DEFAULT) [address] [place] [address] 67190 Bilirubin.indirect [Mass/Vol] 0.1 mg/dL Normal <0.3 [facility] Comment on above: Performed By: #### Dinora BIRMINGHAM, HFP, CHM7 #### [facility] (DEFAULT) [address] [place] [address] 99071 Protein [Mass/Vol] 5.6 g/dL Low 6.4-8.3 [facility] Comment on above: Result Comment: Resu lts inconsistent with previous results Performed By: #### M ARCHIE BIRMINGHAM, PAULINO #### U [facility] (DEFAULT) [address] [place] [address] 12660 MAGNESIUMon 11-04-2022 Magnesium [Mass/Vol] 1.8 mg/dL Normal 1.6-2.6 [facility] Comment on above: Performed By: #### ARCHIE GREENE, PAULINO #### U [facility] (DEFAULT) [address] [place] [address] 71269 PT,INR,PTTon 11-04-2022 aPTT Coag (Bld) [Time] 31.9 s Normal 24.0-34.3 [facility] Comment on above: Performed By: #### P TPTT #### [facility] (DEFAULT) [address] [place] [address] 59244 INR Coag (PPP) [Relative time] 1.1 {INR} Normal 0.9-1.1 [facility] Comment on above: Performed By: #### P TPTT #### [facility] (DEFAULT) [address] [place] [address] 56566 PT Coag (PPP) [Time] 14.3 s High 11.9-14.2 [facility] Comment on above: Performed By: #### P TPTT #### [facility] (DEFAULT) [address] [place] [address] 59882 CALCIUMon 11-03-2022 Calcium [Mass/Vol] 9.4 mg/dL Normal 8.6-10.5 [facility] Comment on above: Performed By: #### M ARCHIE BIRMINGHAM, PAULINO #### [facility] (DEFAULT) [address] [place] [address] 41432 CBC AND ELECTRONIC DIFFon Abs Baso Auto < Normal 0.00-0.09 [facility] Comment on above: Performed By: #### L AB980 #### [facility] (DEFAULT) [address] [place] [address] 97517 Basophils/100 WBC (Bld) 0.2 % Normal O [facility] Comment on above: Performed By: #### L AB980 #### [facility] (DEFAULT) [address] [place] [address] 37620 DIFF STATUS Electronic Differential Normal [facility] Comment on above: Performed By: #### L AB980 #### [facility] (DEFAULT) [address] [place] [address] 77353 Eosinophils (Bld) [#/Vol] 0.25 10*3/uL Normal 0.00-0.48 [facility] Comment on above: Performed By: #### L AB980 #### [facility] (DEFAULT) [address] [place] [address] 05017 Eosinophils/100 WBC (Bld) 3.0 % Normal [facility] Comment on above: Performed By: #### L AB980 #### [facility] (DEFAULT) [address] [place] [address] 85985 Hematocrit (Bld) [Volume fraction] 43.6 % Normal 39.6-48.8 [facility] Comment on above: Performed By: #### L AB980 #### [facility] (DEFAULT) [address] [place] [address] 73522 Hemoglobin (Bld) [Mass/Vol] 14.5 g/dL Normal 13.4-16.8 [facility] Comment on above: Performed By: #### L AB980 #### [facility] (DEFAULT) [address] [place] [address] 42898 Immature Grans % 0.2 % Normal [facility] Comment on above: Performed By: #### L AB980 #### [facility] (DEFAULT) [address] [place] [address] 16438 Immature Grans Absolute < Normal <=0.07 O [facility] Comment on above: Performed By: #### L [id number] #### [facility] (DEFAULT) [address] [place] [address] 83496 Lymphocytes (Bld) [#/Vol] 1.05 10*3/uL Normal 0.83-3.57 [facility] Comment on above: Performed By: #### L [id number] #### [facility] (DEFAULT) [address] [place] [address] 02165 Lymphocytes/100 WBC (Bld) 12.5 % Normal [facility] Comment on above: Performed By: #### L [id number] #### [facility] (DEFAULT) [address] [place] [address] 50900 MCV (RBC) [Entitic vol] 89.0 fL Normal 79.0-94.5 [facility] Comment on above: Performed By: #### L [id number] #### [facility] (DEFAULT) [address] [place] [address] 41545 Mean Cell Hgb 29.6 pg Normal 26.1-33.3 [facility] Comment on above: Performed By: #### L [id number] #### [facility] (DEFAULT) [address] [place] [address] 14548 Mean Cell Hgb Conc 33.3 g/dL Normal 31.9-36.5 [facility] Comment on above: Performed By: #### L [id number] #### [facility] (DEFAULT) [address] [place] [address] 22898 Monocytes (Bld) [#/Vol] 1.15 10*3/uL High 0.24-0.93 [facility] Comment on above: Performed By: #### L [id number] #### [facility] (DEFAULT) [address] [address] Monocytes/100 WBC (Bld) 13.7 % Normal [facility] Comment on above: Performed By: #### L [id number] #### [facility] (DEFAULT) [address] [place] [address] 09267 Nucleated RBC 0.0 /100 WBC Normal <=0.2 [facility] Comment on above: Performed By: #### L [id number] #### [facility] (DEFAULT) [address] [place] [address] 22661 Platelet mean volume (Bld) [Entitic vol] 8.8 fL Normal 8.7-12.3 [facility] Comment on above: Performed By: #### L [id number] #### [facility] (DEFAULT) [address] [place] [address] 72417 Platelets (Bld) [#/Vol] 223 10*3/uL Normal 146-337 [facility] Comment on above: Performed By: #### L [id number] #### [facility] (DEFAULT) [address] [place] [address] 67206 RBC (Bld) [#/Vol] 4.90 10*6/uL Normal 4.38-5.83 [facility] Comment on above: Performed By: #### L [id number] #### [facility] (DEFAULT) [address] [place] [address] 91606 RBC Distribution 12.9 % Normal 10.9-14.[address] [facility] Comment on above: Performed By: #### L [id number] #### [facility] (DEFAULT) [address] [place] [address] 66814 Segs + Bands Auto 70.4 % Normal [facility] Comment on above: Performed By: #### L [id number] #### [facility] (DEFAULT) [address] [place] [address] 21062 Segs + Bands,Absolute Auto 5.91 K/uL Normal 1.57-6.19 [facility] Comment on above: Performed By: #### L [id number] #### [facility] (DEFAULT) [address] [place] [address] 30392 WBC (Bld) [#/Vol] 8.40 10*3/uL Normal 3.73-10.10 [facility] Comment on above: Performed By: #### L [id number] #### [facility] (DEFAULT) [address] [place] [address] CBC AUTO DIFFon 11-03-2022 BASO # 0.0 103/ul Normal 0.0-0.1 [facility] Comment on above: Performed By: #### C BC #### [facility] [address] [place] [address] Dr. Cipriano Patton Basophils/100 WBC (Bld) 0.3 % Normal 0.2-2.0 [facility] Comment on above: Performed By: #### C BC #### [facility] [address] [place] [address] Dr. Cipriano Patton EO # 0.3 103/ul Normal 0.0-0.7 [facility] Comment on above: Performed By: #### C BC #### [facility] [address] [place] [address] Dr. Cipriano Patton Eosinophils/100 WBC (Bld) 4.0 % Normal 0.9-7.0 [facility] Comment on above: Performed By: #### C BC #### [facility] [address] [place] [address] Dr. Cipriano Patton Erythrocyte distribution width (RBC) [Ratio] 13.1 % Normal 11.0-15.0 [facility] Comment on above: Performed By: #### C BC #### [facility] [address] [place] [address] Dr. Cipriano Patotn Hematocrit (Bld) [Volume fraction] 41.6 % Critically low 42.0-54.0 [facility] Comment on above: Performed By: #### C BC #### [facility] [address] [place] [address] Dr. Cipriano Patton Hemoglobin (Bld) [Mass/Vol] 14.1 g/dL Normal 14.0-18.0 [facility] Comment on above: Performed By: #### C BC #### [facility] [address] [place] [address] Dr. Cipriano Patton IG # 0.02 10e3/ul Normal 0.00-0.03 [facility] Comment on above: Performed By: #### C BC #### [facility] [address] [place] [address] Dr. Cipriano Patton IG % 0.3 % Normal 0.0-0.5 [facility] Comment on above: Performed By: #### C BC #### [facility] [address] [place] [address] Dr. Cipriano Patton LYMPH # 1.0 103/ul Critically low 1.2-3.8 [facility] Comment on above: Performed By: #### C BC #### [facility] [address] [place] [address] Dr. Cipriano Patton Lymphocytes/100 WBC (Bld) 13.0 % Critically low 20.5-60.0 [facility] Comment on above: Performed By: #### C BC #### [facility] [address] [place] [address] Dr. Cipriano Ptaton MANUAL DIFF REQ NO Normal [facility] Comment on above: Performed By: #### C BC #### [facility] [address] [place] [address] Dr. Cipriano Patton MCH (RBC) [Entitic mass] 29.6 pg Normal 25.9-34.0 [facility] Comment on above: Performed By: #### C BC #### [facility] [address] [place] [address] Dr. Cipriano Patton MCHC (RBC) [Mass/Vol] 33.9 g/dL Normal 29.9-35.2 [facility] Comment on above: Performed By: #### C BC #### [facility] [address] [place] [address] Dr. Cipriano Patton MCV (RBC) [Entitic vol] 87.2 fL Normal 80.0-94.0 [facility] Comment on above: Performed By: #### C BC #### [facility] [address] [place] [address] Dr. Cipriano Patton MONO # 0.9 103/ul Critically high 0.3-0.8 [facility] Comment on above: Performed By: #### C BC #### [facility] [address] [place] [address] Dr. Cipriano Patton Monocytes/100 WBC (Bld) 12.9 % Critically high 1.7-12. 0 [facility] Comment on above: Performed By: #### C BC #### [facility] [address] [place] [address] Dr. Cipriano Patton NEUT # 5.1 103/ul Normal 1.4-6.5 [facility] Comment on above: Performed By: #### C BC #### [facility] [address] [place] [address] Dr. Cipriano Patton Neutrophils/100 WBC (Bld) 69.5 % Normal 43.0-75.0 [facility] Comment on above: Performed By: #### C BC #### [facility] [address] [place] [address] Dr. Cipriano Patton Platelet mean volume (Bld) [Entitic vol] 8.7 fL Critically low 9.5-13.5 [facility] Comment on above: Performed By: #### C BC #### [facility] [address] [place] [address] Dr. Cipriano Patton PLT 216 103/ul Normal 150-450 [facility] Comment on above: Performed By: #### C BC #### [facility] [address] [place] [address] Dr. Cipriano Patton RBC 4.77 106/ul Normal 4.70-6.10 [facility] Comment on above: Performed By: #### C BC #### [facility] [address] [place] [address] Dr. Cipriano Patton WBC 7.3 103/ul Normal 4.0-11.0 [facility] Comment on above: Performed By: #### C BC #### [facility] [address] [place] [address] Dr. Cipriano OGLESBY 7 - EDon 11-03-2022 Anion gap [Moles/Vol] 11 mmol/L Normal 7-17 [facility] Comment on above: Performed By: #### M ARCHIE BIRMINGHAM, CHM7 #### [facility] (DEFAULT) [address] [place] [address] 06607 Chloride [Moles/Vol] 105 mmol/L Normal 98-108 [facility] Comment on above: Performed By: #### ARCHIE GREENE, CHM7 #### [facility] (DEFAULT) [address] [place] [address] 63157 CO2 [Moles/Vol] 27 mmol/L Normal 21-31 [facility] Comment on above: Performed By: #### ARCHIE GREENE, CHM7 #### [facility] (DEFAULT) [address] [place] [address] 87040 Creatinine [Mass/Vol] 1.02 mg/dL Normal 0.70-1.30 [facility] Comment on above: Performed By: #### ARCHIE GREENE, CHM7 #### [facility] (DEFAULT) [address] [place] [address] 46242 GFR/1.73 sq M.predicted among non-blacks MDRD (S/P/Bld) [Vol rate/Area] 72 mL/min/{1.73_m2} Normal >=60 [facility] Comment on above: Result Comment: Repo rted eGFR is based on the CKD-EPI 2020 equation using creatinine, age, and sex. Performed By: #### ARCHIE GREENE, CHM7 #### [facility] (DEFAULT) [address] [place] [address] 90327 Glucose [Mass/Vol] 97 mg/dL Normal 70-99 [facility] Comment on above: Performed By: #### ARCHIE GREENE, CHM7 #### [facility] (DEFAULT) [address] [place] [address] 74831 Osmolality [Osmolality] 291 mosm/kg Normal 278-305 [facility] Comment on above: Performed By: #### ARCHIE GREENE, CHM7 #### [facility] (DEFAULT) [address] [place] [address] 79324 Potassium [Moles/Vol] 4.6 mmol/L Normal 3.5-5.0 [facility] Comment on above: Performed By: #### M ARCHIE [place], CHM7 #### [facility] (DEFAULT) [address] [place] [address] 00937 Sodium [Moles/Vol] 138 mmol/L Normal 135-145 [facility] Comment on above: Performed By: #### ARCHIE GREENE, CHM7 #### [facility] (DEFAULT) [address] [place] [address] 39019 Urea nitrogen [Mass/Vol] 16 mg/dL Normal 7-25 [facility] Comment on above: Performed By: #### ARCHIE GREENE, CHM7 #### [facility] (DEFAULT) [address] [place] [address] 17700 Urea nitrogen/Creatinine [Mass ratio] 16 mg/mg Normal [facility] Comment on above: Performed By: #### ARCHIE GREENE, CHM7 #### [facility] (DEFAULT) [address] [place] [address] ABD/PELV W CONon 11-03-19 CT ABD/PELV [...] ANKIT DANIEL Date: 2022-11-03 11:55 Normal [facility] HEPATIC FUNCTION PANELon Albumin [Mass/Vol] 3.9 g/dL Normal 3.5-5.0 [facility] Comment on above: Performed By: #### ARCHIE GREENE, CHM7 #### [facility] (DEFAULT) [address] [place] [address] 72048 ALP [Catalytic activity/Vol] 49 U/L Normal 32-126 [facility] Comment on above: Performed By: #### ARCHIE GREENE, CHM7 #### [facility] (DEFAULT) [address] [place] [address] 32922 ALT [Catalytic activity/Vol] 8 U/L Low 10-52 [facility] Comment on above: Performed By: #### ARCHIE GREENE, CHM7 #### [facility] (DEFAULT) [address] [place] [address] 57612 AST [Catalytic activity/Vol] 14 U/L Normal 10-39 [facility] Comment on above: Performed By: #### ARCHIE GREENE, CHM7 #### [facility] (DEFAULT) [address] [place] [address] 83249 Bilirubin [Mass/Vol] 0.6 mg/dL Normal <1.5 [facility] Comment on above: Performed By: #### ARCHIE GREENE, CHM7 #### [facility] (DEFAULT) [address] [place] [address] 33173 Bilirubin.indirect [Mass/Vol] 0.1 mg/dL Normal <0.3 [facility] Comment on above: Performed By: #### ARCHIE GREENE, CHM7 #### [facility] (DEFAULT) [address] [place] [address] 55825 Protein [Mass/Vol] 6.8 g/dL Normal 6.4-8.3 [facility] Comment on above: Performed By: #### ARCHIE GREENE, CHM7 #### [facility] (DEFAULT) [address] [place] [address] 12793 LACTATE, WHOLE BLOODon 11-03 Lactate, Whole Blood 1.1 mmol/L Normal 0.5-1.6 [facility] Comment on above: Performed By: #### B GLACT #### [facility] (DEFAULT) [address] [place] [address] 35698 LIPASEon 11-03-2022 Lipase [Catalytic activity/Vol] 13 U/L Normal 11-82 [facility] Comment on above: Performed By: #### ARCHIE GREENE, CHM7 #### [facility] (DEFAULT) [address] [place] [address] 61093 MAGNESIUMon 11-03-2022 Magnesium [Mass/Vol] 2.0 mg/dL Normal 1.6-2.6 [facility] Comment on above: Performed By: #### ARCHIE GREENE, CHM7 #### [facility] (DEFAULT) [address] [place] [address] 06351 PHOSPHATE, INORGANICon 11-03 Phosphorous 3.3 mg/dL Normal 2.2-4.6 [facility] Comment on above: Performed By: #### ARCHIE GREENE, CHM7 #### [facility] (DEFAULT) [address] [place] [address] 61265 PROF 14(COMP METB)on 023 Albumin [Mass/Vol] 3.4 g/dL Normal 3.4-5.0 [facility] Comment on above: Performed By: #### C MP #### [facility] [address] [place] [address] Dr. Cipriano Patton Albumin/Globulin [Mass ratio] 1.0 {ratio} Normal [facility] Comment on above: Performed By: #### C MP #### [facility] [address] [address] [address] Cipriano Patton ALP [Catalytic activity/Vol] 53 U/L Normal 46-116 [facility] Comment on above: Performed By: #### C MP #### [facility] [address] [address] [address] Cipriano Patton ALT [Catalytic activity/Vol] 13 U/L Critically low 16-63 [facility] Comment on above: Performed By: #### C MP #### [facility] [address] [address] [address] Cipriano Patton Anion gap [Moles/Vol] 9.3 mmol/L Normal [facility] Comment on above: Performed By: #### C MP #### [facility] [address] [place] [address] Dr. Cipriano Patton AST [Catalytic activity/Vol] 24 U/L Normal 15-37 [facility] Comment on above: Performed By: #### C MP #### [facility] [address] [place] [address] Dr. Cipriano Patton Bilirubin [Mass/Vol] 0.5 mg/dL Normal 0.2-1.0 [facility] Comment on above: Performed By: #### C MP #### [facility] [address] [place] [address] Dr. Cipriano Patton Calcium [Mass/Vol] 9.2 mg/dL Normal 8.5-10.1 [facility] Comment on above: Performed By: #### C MP #### [facility] [address] [address] [address] Cipriano Patton Chloride [Moles/Vol] 105 mmol/L Normal 98-107 [facility] Comment on above: Performed By: #### C MP #### [facility] [address] [address] [address] Cipriano Patton CO2 [Moles/Vol] 30.4 mmol/L Normal 21.0-32.0 [facility] Comment on above: Performed By: #### C MP #### [facility] [address] [address] [address] Cipriano Patton Creatinine [Mass/Vol] 1.02 mg/dL Normal 0.70-1.30 [facility] Comment on above: Performed By: #### C MP #### [facility] [address] [address] [address] Cipriano Patton EGFR-AF JAPANESE >60 Normal >=60 [facility] Comment on above: Performed By: #### C MP #### [facility] [address] [address] [address] Cipriano Patton EGFR-NON AF JAPANESE >60 Normal >=60 [facility] Comment on above: Performed By: #### C MP #### [facility] [address] [place] [address] Dr. Ciprinao Patton Globulin (S) [Mass/Vol] 3.3 g/dL Normal [facility] Comment on above: Performed By: #### C MP #### [facility] [address] [place] [address] Dr. Cipriano Patton Glucose [Mass/Vol] 92 mg/dL Normal 74-106 [facility] Comment on above: Performed By: #### C MP #### [facility] [address] [place] [address] Dr. Cipriano Patton Potassium [Moles/Vol] 4.7 mmol/L Normal 3.5-5.1 [facility] Comment on above: Performed By: #### C MP #### [facility] [address] [place] [address] Dr. Cipriano Patton Protein [Mass/Vol] 6.7 g/dL Normal 6.4-8.[address] [facility] Comment on above: Performed By: #### C MP #### [facility] [address] [place] [address] Dr. Cipriano Patton Sodium [Moles/Vol] 140 mmol/L Normal 136-145 [facility] Comment on above: Performed By: #### C MP #### [facility] [address] [place] [address] Dr. Cipriano Patton Urea nitrogen [Mass/Vol] 18.0 mg/dL Normal 7.0-18.0 [facility] Comment on above: Performed By: #### C MP #### [facility] [address] [address] [address] Cipriano Patton Urea nitrogen/Creatinine [Mass ratio] 17.6 mg/mg Normal [facility] Comment on above: Performed By: #### C MP #### [facility] [address] [address] [address] Cipriano Patton URINALYSISon 11-03-2022 Appearance (U) Clear Normal Clear [facility] Comment on above: Performed By: #### U RIN #### [facility] (DEFAULT) [address] [address] Bacteria ABSENT Normal ABSENT [facility] Comment on above: Performed By: #### U RIN #### [facility] (DEFAULT) [address] [address] Blood Urine Moderate Abnormal Negative [facility] Comment on above: Performed By: #### U RIN #### [facility] (DEFAULT) [address] [place] [address] 39791 Color (U) Yellow Normal Yellow [facility] Comment on above: Performed By: #### U RIN #### [facility] (DEFAULT) [address] [place] [address] 24998 Glucose Ql (U) Negative Normal Negative [facility] Comment on above: Performed By: #### U RIN #### [facility] (DEFAULT) [address] [place] [address] 10334 Ketones Ql (U) Trace Abnormal Negative [facility] Comment on above: Performed By: #### U RIN #### [facility] (DEFAULT) [address] [place] [address] 57902 Leukocyte esterase Test strip Ql (U) Negative Normal Negative [facility] Comment on above: Performed By: #### U RIN #### [facility] (DEFAULT) [address] [place] [address] 38387 Nitrites Urine Negative Normal Negative [facility] Comment on above: Performed By: #### U RIN #### [facility] (DEFAULT) [address] [place] [address] 74886 pH (U) 5.5 [pH] Normal 5.0-7.0 [facility] Comment on above: Performed By: #### U RIN #### [facility] (DEFAULT) [address] [place] [address] 53407 Protein Urine Negative Normal Negative [facility] Comment on above: Performed By: #### U RIN #### [facility] (DEFAULT) [address] [place] [address] 10242 RBC Urine 6-9 Abnormal 0-2 [facility] Comment on above: Performed By: #### U RIN #### [facility] (DEFAULT) [address] [place] [address] 95247 Specific [place] Urine <= Normal >1.00 1-<1.0 35 [facility] Comment on above: Performed By: #### U RIN #### [facility] (DEFAULT) [address] [place] [address] 31124 Squamous/Epithelial Cells 1/hpf = 1+ Normal 1/hpf = 1+, 2-5/hpf = 2+, 0/hpf = 0+, ABSENT [facility] Comment on above: Performed By: #### U RIN #### [facility] (DEFAULT) [address] [place] [address] 51188 Urobilinogen Urine 0.2 E.U./dL Normal 0.2 E.U/d L, 1.0 E.U/dL [facility] Comment on above: Performed By: #### U RIN #### [facility] (DEFAULT) [address] [address] WBC Urine 0-5 Normal 0-5 [facility] Comment on above: Performed By: #### U RIN #### [facility] (DEFAULT) [address] [place] [address] 76485 URINE CULTUREon 11-03-2022 Bacteria identified Cx Nom (U) No significant growth. Routine cultures are evaluated for significant uro-pathogens >=10,000 CFU/mL Normal [facility] Comment on above: Order Comment: For i ndwelling catheters, specimen collection is acceptable on catheter day 1 and 2 only. Jauregui top vacutainer. Urine must be to the fill line to process (4mls). If minimum volume, send urine in a yellow top vacutainer tube. Performed By: #### U R #### [facility] (DEFAULT) [address] [place] [address] XR ABD FLAT UP_PA Lobo 11-03 XR [...] MANAV PARK Date: 2022-11-03 09:52 Normal [facility] GLYCOHEMOGLOBIN A1Con 2021 ADA RECOMMENDATION SEE BELOW Normal [facility] Comment on above: Result Comment: ADA RECOMMENDED LIMIT 4.0 - 6.0 ADA THERAPEUTIC TARGET < 7.0 ACTION SUGGESTED > 7.0 Performed By: #### A 1C #### [facility] [address] [address] [address] Cipriano Patton Glucose [Mass/Vol] 111 mg/dL Normal [facility] Comment on above: Performed By: #### A 1C #### [facility] [address] [address] [address] Cipriano Patton HbA1c (Bld) [Mass fraction] 5.5 % Normal 4.5-6.2 [facility] Comment on above: Performed By: #### A 1C #### [facility] [address] [address] [address] Cipriano Patton PROF CHEM 8 (BAS METB)on Anion gap [Moles/Vol] 9.4 mmol/L Normal [facility] Comment on above: Performed By: #### B MP ####[facility] [address] [address]DrWesley Patton Calcium [Mass/Vol] 9.2 mg/dL Normal 8.5-10.[address] [facility] Comment on above: Performed By: #### B MP ####[facility] [address] [address]Dr[address] Cipriano Patton Chloride [Moles/Vol] 103 mmol/L Normal 98-107 [facility] Comment on above: Performed By: #### B MP ####[facility] [address] [address]DrWesley Patton CO2 [Moles/Vol] 30.6 mmol/L Normal 21.0-32.0 [facility] Comment on above: Performed By: #### B MP ####[facility] [address] [address]Dr[address] Cipriano Patton Creatinine [Mass/Vol] 1.06 mg/dL Normal 0.70-1.30 [facility] Comment on above: Performed By: #### B MP ####[facility] [address] [address]Dr. Cipriano Patton EGFR-AF JAPANESE >60 Normal >=60 [facility] Comment on above: Performed By: #### B MP ####[facility] [address] [address]Dr. Cipriano Patton EGFR-NON AF JAPANESE >60 Normal >=60 [facility] Comment on above: Performed By: #### B MP ####[facility] [address] [address]Dr[address] Cipriano Patton Glucose [Mass/Vol] 96 mg/dL Normal 74-[address] [facility] Comment on above: Performed By: #### B MP ####[facility] [address] [address]Dr. Cipriano Patton Potassium [Moles/Vol] 5.0 mmol/L Normal 3.5-5.1 [facility] Comment on above: Performed By: #### B MP ####[facility] [address] [address]Dr[address] Cipriano Patton Sodium [Moles/Vol] 138 mmol/L Normal 136-[address] [facility] Comment on above: Performed By: #### B MP ####[facility] [address] [address]Dr. Cipriano Patton Urea nitrogen [Mass/Vol] 29.0 mg/dL Critically high 7.0-18.0 [facility] Comment on above: Performed By: #### B MP ####[facility] [address] [address]Dr. Cipriano Patton Urea nitrogen/Creatinine [Mass ratio] 27.4 mg/mg Normal [facility] Comment on above: Performed By: #### B MP ####[facility] [address] [address]DrWesley Patton CBC AUTO DIFFon 07-02-2022 BASO # 0.0 103/ul Normal 0.0-0.1 [facility] Comment on above: Performed By: #### C BC #### [facility] [address] [address] [address] Cipriano Patton Basophils/100 WBC (Bld) 0.5 % Normal 0.2-2.0 [facility] Comment on above: Performed By: #### C BC #### [facility] [address] [place] [address] Dr. Cipriano Patton EO # 0.4 103/ul Normal 0.0-0.7 [facility] Comment on above: Performed By: #### C BC #### [facility] [address] [place] [address] Dr. Cipriano Patton Eosinophils/100 WBC (Bld) 6.9 % Normal 0.9-7.0 [facility] Comment on above: Performed By: #### C BC #### [facility] [address] [place] [address] Dr. Cipriano Patton Erythrocyte distribution width (RBC) [Ratio] 13.5 % Normal 11.0-15.0 [facility] Comment on above: Performed By: #### C BC #### [facility] [address] [place] [address] Dr. Cipriano Patton Hematocrit (Bld) [Volume fraction] 42.5 % Normal 42.0-54.0 [facility] Comment on above: Performed By: #### C BC #### [facility] [address] [place] [address] Dr. Cipriano Patton Hemoglobin (Bld) [Mass/Vol] 13.7 g/dL Critically low 14.0-18.0 [facility] Comment on above: Performed By: #### C BC #### [facility] [address] [place] [address] Dr. Cipriano Patton IG # 0.02 10e3/ul Normal 0.00-0.03 [facility] Comment on above: Performed By: #### C BC #### [facility] [address] [place] [address] Dr. Cipriano Patton IG % 0.4 % Normal 0.0-0.5 [facility] Comment on above: Performed By: #### C BC #### [facility] [address] [place] [address] Dr. Cipriano Patton LYMPH # 1.3 103/ul Normal 1.2-3.8 [facility] Comment on above: Performed By: #### C BC #### [facility] [address] [place] [address] Dr. Cipriano Patton Lymphocytes/100 WBC (Bld) 23.7 % Normal 20.5-60.0 [facility] Comment on above: Performed By: #### C BC #### [facility] [address] [place] [address] Dr. Cipriano Patton MANUAL DIFF REQ NO Normal [facility] Comment on above: Performed By: #### C BC #### [facility] [address] [place] [address] Dr. Cipriano Patton MCH (RBC) [Entitic mass] 29.4 pg Normal 25.9-34.0 [facility] Comment on above: Performed By: #### C BC #### [facility] [address] [place] [address] Dr. Cipriano Patton MCHC (RBC) [Mass/Vol] 32.2 g/dL Normal 29.9-35.2 [facility] Comment on above: Performed By: #### C BC #### [facility] [address] [place] [address] Dr. Cipriano Patton MCV (RBC) [Entitic vol] 91.2 fL Normal 80.0-94.0 [facility] Comment on above: Performed By: #### C BC #### [facility] [address] [place] [address] Dr. Cipriano Patton MONO # 0.9 103/ul Critically high 0.3-0.8 [facility] Comment on above: Performed By: #### C BC #### [facility] [address] [place] [address] Dr. Cipriano Patton Monocytes/100 WBC (Bld) 15.8 % Critically high 1.7-12. 0 [facility] Comment on above: Performed By: #### C BC #### [facility] [address] [place] [address] Dr. Cipriano Patton NEUT # 2.9 103/ul Normal 1.4-6.5 [facility] Comment on above: Performed By: #### C BC #### [facility] [address] [place] [address] Dr. Cipriano Patton Neutrophils/100 WBC (Bld) 52.7 % Normal 43.0-75.0 [facility] Comment on above: Performed By: #### C BC #### [facility] [address] [place] [address] Dr. Cipriano Patton Platelet mean volume (Bld) [Entitic vol] 9.0 fL Critically low 9.5-13.5 [facility] Comment on above: Performed By: #### C BC #### [facility] [address] [place] [address] Dr. Cipriano Patton PLT 211 103/ul Normal 150-450 [facility] Comment on above: Performed By: #### C BC #### [facility] [address] [place] [address] Dr. Cipriano Patton RBC 4.66 106/ul Critically low 4.70-6.10 [facility] Comment on above: Performed By: #### C BC #### [facility] [address] [place] [address] Dr. Cipriano Patton WBC 5.5 103/ul Normal 4.0-11.0 [facility] Comment on above: Performed By: #### C BC #### [facility] [address] [place] [address] Dr. Cipriano Patton PROF CHEM 8 (BAS METB)on Anion gap [Moles/Vol] 10.7 mmol/L Normal [facility] Comment on above: Performed By: #### B MP #### [facility] [address] [place] [address] Dr. Cipriano Patton Calcium [Mass/Vol] 8.5 mg/dL Normal 8.5-10.1 [facility] Comment on above: Performed By: #### B MP #### [facility] [address] [place] [address] Dr. Cipriano Patton Chloride [Moles/Vol] 105 mmol/L Normal 98-107 [facility] Comment on above: Performed By: #### B MP #### [facility] [address] [place] [address] Dr. Cipriano Patton CO2 [Moles/Vol] 29.4 mmol/L Normal 21.0-32.0 [facility] Comment on above: Performed By: #### B MP #### [facility] [address] [address] [address] Cipriano Patton Creatinine [Mass/Vol] 0.90 mg/dL Normal 0.70-1.30 [facility] Comment on above: Performed By: #### B MP #### [facility] [address] [address] [address] Cipriano Patton EGFR-AF JAPANESE >60 Normal >=60 [facility] Comment on above: Performed By: #### B MP #### [facility] [address] [address] [address] Cipriano Patton EGFR-NON AF JAPANESE >60 Normal >=60 [facility] Comment on above: Performed By: #### B MP #### [facility] [address] [place] [address] Dr. Cipriano Patton Glucose [Mass/Vol] 82 mg/dL Normal 74-[address] [facility] Comment on above: Performed By: #### B MP #### [facility] [address] [address] [address] Cipriano Patton Potassium [Moles/Vol] 4.1 mmol/L Normal 3.5-5.1 [facility] Comment on above: Performed By: #### B MP #### [facility] [address] [address] [address] Cipriano Patton Sodium [Moles/Vol] 141 mmol/L Normal 136-[address] [facility] Comment on above: Performed By: #### B MP #### [facility] [address] [place] [address] Dr. Cipriano Patton Urea nitrogen [Mass/Vol] 16.0 mg/dL Normal 7.0-18.0 [facility] Comment on above: Performed By: #### B MP #### [facility] [address] [place] [address] Dr. Cipriano Patton Urea nitrogen/Creatinine [Mass ratio] 17.8 mg/mg Normal [facility] Comment on above: Performed By: #### B #### [facility] [address] [place], [place] [address] Dr. Cipriano Patton [facility]21 SARS-CoV-2 (COVID-19) RNA CAIT+probe Ql (Unsp spec) Detected Critically abnormal NOT DETECTED [facility] Comment on above: Result Comment: This test is not yet approved or cleared by the [place] FDA. When there are no FDA-approved or cleared tests available, and other criteria are met, FDA can make tests available under an emergency access mechanism called an Emergency Use Authorization (EUA). The EUA for this test is supported by the [employer] of Health and Human Service's (HHS's) declaration [...] longer be used). Performed By: #### [facility] #### [facility] [id number] Cipriano Patton VC COMP CONSULTATIONon 03-28 VC COMP CONSULTATION Patient: KENNEDY KONG Exam Date: 03/28/2022 : 1935 Gender:M Ordering : DR NESTOR ESTRELLA D.O. Admission #: [id number] Family : Order #: [id number] CLICK HERE TO VIEW EXAM RADIOLOGY REPORT [...] hours. The patient is a wolff in [facility]. The patient denies any signs and symptoms [...] Vee MD on 03/28/2022 at 10:14 Normal [facility] VC VENOUS REFLUX ROBERTO LMTon 0 03-28-2022 VC VENOUS REFLUX ROBERTO LMT Patient: KENNEDY KONG Exam Date: 03/28/2022 : 1935 Gender:M Ordering : DR NESTOR ESTRELLA D.O. Admission #: [id number] Family : Order #: [id number] CLICK HERE TO VIEW EXAM RADIOLOGY REPORT [...] compression in area of thrombus Flow: Normal [employer]: Dist/med calf 2.2mm, 0.7s reflux; mid/med calf [...] or chronic thrombus Compressibility: Normal Flow: Normal [employer] Program Director: Mid/med 2.6mm, no reflux; dist/med 3.3mm, no reflux Tech Note: Patent varicose vein prox/med 2.3mm, without reflux. Varicose vein mid/ant 2.7mm, without reflux. Hypoechoic avascular structure lt pop fossa that measures 3.1 x 4.2 x 0.9 cm CONCLUSION: 1. 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 Small bilateral incompetent varicose veins 3. 4.2 cm left popliteal cyst Dictated by: Aubrey Vee MD on 03/28/2022 at 09:23 Approved by: Aubrey Vee MD on 03/28/2022 at 09:26 Normal [facility] US MILADIS DOP LEG LTon [...] by: AUBREY CHEUNG Date: 2022-02-07 17:34 Normal [facility] ANES Lisa 11-04-2019 ANES POST HNO ID: [id number] Author: Luigi Snyder Service: Anesthesiology Author Type: [...] 04, 2019 TIME: 3:21 PM PAGER/CONTACT #: [phone] [facility] ANES PREOPon 11-04-2019 ANES PREOP HNO ID: [id number] Author: Seymour Beunrostro Service: Anesthesiology Author Type: Anesthesiologist Type: Anesthesia [...] ASA Monitors Pain Management Plan: ROOT Protocol [facility] Chart Review ACTIVE PROBLEM LIST Colonic [...] partial bowel resection - REMV LENS MATERIAL,PHACOFRAGMT 2009 Cataract Extraction bilateral FAMILY HISTORY Problem Relation [...] mouth once daily. Inpatient medications reviewed in [facility]. I have interviewed and examined the [...] 04, 2019 TIME: 2:13 PM PAGER/CONTACT #: [phone] [facility] HISTORY PHYSICALon 0 HISTORY PHYSICAL HNO ID: [id number] Author: Avel Camacho Service: Colorectal Author Type: [...] November 04, 2019 TIME: 1:08 PM PAGER: [facility] PT EDon 11-04-2019 PT ED HNO ID: [id number] Author: Elizabeth Menard) JUSTIN Patel Service: Nursing Author Type: Registered Nurse [...] None Electronically Signed By: Elizabeth Patel RN [facility] PT ED HNO ID: [id number] Author: Harini RomeroRn) JUSTIN Yusuf Service: ? Author Type: Registered Nurse [...] None Electronically Signed By: Harini Yusuf RN [facility] NURSING PROGon 10-08-2019 NURSING PROG HNO ID: [id number] Author: Nathaly RomeroRnSusan Kraft RN Service: Nursing [...] Kraft RN October 08, 2019 8:45 AM [facility] HOSPon 09-24-2019 HOSP Patient:Dustin Kong MRN: Height:5' [...] notes entered within the past 30 days [facility] ABDOMEN 1 VWon 03-31-2019 ABDOMEN 1 [facility] Department of Radiology [address] [place] [id number] Patient Name: KENNEDY KONG : 1935 Sex: M Age: Race: White Pt. Location: 230 Patient Status: Ordered Date: 03/31/2019 5:00:00 AM Completed Date: 03/31/2019 11:46 AM Requesting Provider: GABRIEL PEREZ Attending Provider: GABRIEL PEREZ Report Copy To: Signs & Symptoms: R10.9 Unspecified abdominal pain I10 History: Sandra THIS IS FOR A COLONOSCOPY FOR STRICTURE Comments: , THIS IS FOR A COLONOSCOPY FOR STRICTURE , Appointment Date: 03/31/2019 , Appointment Time: 8:30AM , THIS IS FOR A COLONOSCOPY FOR STRICTURE , Appointment Date: 03/31/2019 , Appointment Time: 8:30AM , , , Ordering Provider - MARILEE JIMÉNEZ , Exam: ABDOMEN 1 VW ABDOMEN 1 [...] documentation Electronically signed by:Kaleb Perry. Transcribed by: [email or web address], User Resident: Electronically Signed by: KALEB PERRY @ 03/31/2019 12:59 PM Normal [facility] Comment on above: Order Comment: , THI S IS FOR A COLONOSCOPY FOR STRICTURE , Appointment Date: 03/31/2019 , Appointment Time: 8:30AM , THIS IS FOR A COLONOSCOPY FOR STRICTURE , Appointment Date: 03/31/2019 , Appointment Time: 8:30AM , , , Ordering Provider - MARILEE JIMÉNEZ , Vital Signs Date Time Vital Sign Value Performing Clinician Talib dyer 11-20-2023 09:11-0500 Body height 180.3 cm Adriel Morgan DO Work Phone: [facility] 11-20-2023 09:11-0500 Body mass index (BMI) [Ratio] 25.94 kg/m2 Adriel Morgan DO Work Phone: [facility] 11-20-2023 09:11-0500 Body weight 84.37 kg Adriel Morgan DO Work Phone: [facility] 11-20-2023 09:11-0500 Diastolic blood pressure 60 mm[Hg] Adriel Morgan DO Work Phone: [facility] 11-20-2023 09:11-0500 Heart rate 66 /min Adriel Morgan DO Work Phone: [facility] 11-20-2023 09:11-0500 Systolic blood pressure 114 mm[Hg] Adriel Morgan DO Work Phone: [facility] 11-07-2023 08:30-0500 Body height 180.34 cm Nestor Ball Other [facility] Other 11-07-2023 08:30-0500 Body mass index (BMI) [Ratio] 25.33 kg/m2 Nestor Ball Other [facility] Other 11-07-2023 08:30-0500 Body weight 82.37 kg Nestor Ball Other [facility] Other 11-07-2023 08:30-0500 Diastolic blood pressure 73 mm[Hg] Nestor Ball Other [facility] Other 11-07-2023 08:30-0500 Respiratory rate 12 /min Nestor Ball Other [facility] Other 11-07-2023 08:30-0500 Systolic blood pressure 113 mm[Hg] Nestor Ball Other [facility] Other 10-10-2023 16:00-0500 Body temperature 98.1 [degF] Josafat Sun MD Work Phone: [facility] 10-10-2023 16:00-0500 Diastolic blood pressure 76 mm[Hg] Josafat Sun MD Work Phone: [facility] 10-10-2023 16:00-0500 Heart rate 68 /min Josafat Sun MD Work Phone: [facility] 10-10-2023 16:00-0500 Respiratory rate 17 /min Josafat Sun MD Work Phone: [facility] 10-10-2023 16:00-0500 SaO2% (BldA) [Mass fraction] 99 % Josafat Sun MD Work Phone: [facility] 10-10-2023 16:00-0500 Systolic blood pressure 149 mm[Hg] Josafat Sun MD Work Phone: [facility] 10-09-2023 22:34-0500 Body height 177.8 cm Josafat Sun MD Work Phone: [facility] 10-07-2023 14:30-0500 Body height 180.34 cm Imad Asaad Other [facility] Other 10-07-2023 14:30-0500 Body mass index (BMI) [Ratio] 25.24 kg/m2 Imad Asaad Other [facility] Other 10-07-2023 14:30-0500 Body weight 82.1 kg Imad Asaad Other [facility] Other 10-07-2023 14:30-0500 Diastolic blood pressure 63 mm[Hg] Imad Asaad Other [facility] Other 10-07-2023 14:30-0500 Systolic blood pressure 139 mm[Hg] Imad Asaad Other [facility] Other 10-04-2023 08:45-0500 Body height 180.34 cm Nestor Ball Other [facility] Other 10-04-2023 08:45-0500 Body mass index (BMI) [Ratio] 25.35 kg/m2 Nestor Ball Other [facility] Other 10-04-2023 08:45-0500 Body weight 82.46 kg Nestor Ball Other [facility] Other 10-04-2023 08:45-0500 Diastolic blood pressure 65 mm[Hg] Nestor Ball Other [facility] Other 10-04-2023 08:45-0500 Respiratory rate 12 /min Nestor Ball Other [facility] Other 10-04-2023 08:45-0500 Systolic blood pressure 133 mm[Hg] Nestor Ball Other [facility] Other 09-04-2023 08:45-0500 Body height 180.34 cm Nestor Ball Other [facility] Other 09-04-2023 08:45-0500 Body mass index (BMI) [Ratio] 26.11 kg/m2 Nestor Ball Other [facility] Other 09-04-2023 08:45-0500 Body weight 84.91 kg Nestor Ball Other [facility] Other 09-04-2023 08:45-0500 Diastolic blood pressure 71 mm[Hg] Nestor Ball Other [facility] Other 09-04-2023 08:45-0500 Respiratory rate 12 /min Nestor Ball Other [facility] Other 09-04-2023 08:45-0500 Systolic blood pressure 116 mm[Hg] Nestor Ball Other [facility] Other 08-21-2023 09:30-0400 Body height 180.34 cm Nestor Ball Other [facility] Other 08-21-2023 09:30-0400 Body mass index (BMI) [Ratio] 25.46 kg/m2 Nestor Ball Other [facility] Other 08-21-2023 09:30-0400 Body weight 82.83 kg Nestor Ball Other [facility] Other 08-21-2023 09:30-0400 Diastolic blood pressure 61 mm[Hg] Nestor Ball Other [facility] Other 08-21-2023 09:30-0400 Respiratory rate 12 /min Nestor Ball Other [facility] Other 08-21-2023 09:30-0400 Systolic blood pressure 115 mm[Hg] Nestor Ball Other [facility] Other 08-02-2023 09:45-0400 Body height 180.34 cm Nestor Ball Other [facility] Other 08-02-2023 09:45-0400 Body mass index (BMI) [Ratio] 25.86 kg/m2 Nestor Ball Other [facility] Other 08-02-2023 09:45-0400 Body weight 84.1 kg Nestor Ball Other [facility] Other 08-02-2023 09:45-0400 Diastolic blood pressure 64 mm[Hg] Nestor Ball Other [facility] Other 08-02-2023 09:45-0400 Respiratory rate 12 /min Nestor Ball Other [facility] Other 08-02-2023 09:45-0400 SaO2% (BldA) [Mass fraction] 96 % Nestor Ball Other [facility] Other 08-02-2023 09:45-0400 Systolic blood pressure 119 mm[Hg] Nestor Ball Other [facility] Other 07-08-2023 08:30-0400 Body height 180.34 cm Nestor Ball Other [facility] Other 07-08-2023 08:30-0400 Body mass index (BMI) [Ratio] 26.02 kg/m2 Nestor Ball Other [facility] Other 07-08-2023 08:30-0400 Body weight 84.64 kg Nestor Ball Other [facility] Other 07-08-2023 08:30-0400 Diastolic blood pressure 78 mm[Hg] Nestor Ball Other [facility] Other 07-08-2023 08:30-0400 Respiratory rate 12 /min Nestor Ball Other [facility] Other 07-08-2023 08:30-0400 Systolic blood pressure 135 mm[Hg] Nestor Ball Other [facility] Other 06-07-2023 14:15-0400 Body height 180.34 cm Nestor Ball Other [facility] Other 06-07-2023 14:15-0400 Body mass index (BMI) [Ratio] 26.72 kg/m2 Nestor Ball Other [facility] Other 06-07-2023 14:15-0400 Body weight 86.91 kg Nestor Ball Other [facility] Other 06-07-2023 14:15-0400 Diastolic blood pressure 71 mm[Hg] Nestor Ball Other [facility] Other 06-07-2023 14:15-0400 Respiratory rate 12 /min Nestor Ball Other [facility] Other 06-07-2023 14:15-0400 Systolic blood pressure 121 mm[Hg] Nestor Ball Other [facility] Other 05-02-2023 11:57-0400 Body height 177.8 cm Nestor E Ball Work Phone: [facility] [employer] DO Work Phone: 05-02-2023 11:57-0400 Body mass index (BMI) [Ratio] 26.54 kg/m2 Nestor E Ball Work Phone: [facility] [employer] DO Work Phone: 05-02-2023 11:57-0400 Body surface area Derived from formula 2.02 m2 Nestor E Ball Work Phone: [facility] [employer] DO Work Phone: 05-02-2023 11:57-0400 Body weight 83.92 kg Nestor E Ball Work Phone: [facility] [employer] DO Work Phone: 05-02-2023 11:57-0400 Diastolic blood pressure 60 mm[Hg] Nestor E Ball Work Phone: [facility] [employer] DO Work Phone: 05-02-2023 11:57-0400 Heart rate 60 /min Nestor E Ball Work Phone: [facility] [employer] DO Work Phone: 05-02-2023 11:57-0400 Systolic blood pressure 112 mm[Hg] Nestor E Ball Work Phone: [facility] [employer] DO Work Phone: 04-23-2023 08:53-0400 Body temperature 97.8 [degF] DO Nestor Ball Work Phone: [facility] 04-23-2023 08:53-0400 Diastolic blood pressure 53 mm[Hg] DO Nestor Ball Work Phone: [facility] 04-23-2023 08:53-0400 Heart rate 70 /min DO Nestor Ball Work Phone: [facility] 04-23-2023 08:53-0400 Respiratory rate 16 /min DO Nestor Ball Work Phone: [facility] 04-23-2023 08:53-0400 SaO2% (BldA) [Mass fraction] 97 % DO Nestor Ball Work Phone: [facility] 04-23-2023 08:53-0400 Systolic blood pressure 91 mm[Hg] DO Nestor Ball Work Phone: [facility] 04-23-2023 04:43-0400 Body weight 83.1 kg DO Nestor Ball Work Phone: [facility] 04-22-2023 10:44-0400 Body height 177.8 cm DO Nestor Ball Work Phone: [facility] 04-12-2023 13:15-0400 Body height 180.34 cm Nestor Ball Other [facility] Other 04-12-2023 13:15-0400 Body mass index (BMI) [Ratio] 26.41 kg/m2 Nestor Ball Other [facility] Other 04-12-2023 13:15-0400 Body weight 85.91 kg Nestor Ball Other [facility] Other 04-12-2023 13:15-0400 Diastolic blood pressure 72 mm[Hg] Nestor Ball Other [facility] Other 04-12-2023 13:15-0400 Respiratory rate 12 /min Nestor Ball Other [facility] Other 04-12-2023 13:15-0400 Systolic blood pressure 121 mm[Hg] Nestor Ball Other [facility] Other 02-06-2023 12:30-0400 Body height 180.34 cm Nestor Ball Other [facility] Other 02-06-2023 12:30-0400 Body mass index (BMI) [Ratio] 26.39 kg/m2 Nestor Ball Other [facility] Other 02-06-2023 12:30-0400 Body weight 85.82 kg Nestor Ball Other [facility] Other 02-06-2023 12:30-0400 Diastolic blood pressure 80 mm[Hg] Nestor Ball Other [facility] Other 02-06-2023 12:30-0400 Respiratory rate 12 /min Nestor Ball Other [facility] Other 02-06-2023 12:30-0400 Systolic blood pressure 132 mm[Hg] Nestor Ball Other [facility] Other 01-14-2023 15:51-0400 Body height 177.8 cm Avel Camacho MD Work Phone: [facility] 01-14-2023 15:51-0400 Body temperature 97.5 [degF] Avel Camacho MD Work Phone: [facility] 01-14-2023 15:51-0400 Body weight 83.46 kg Avel Camacho MD Work Phone: [facility] 01-14-2023 15:51-0400 Diastolic blood pressure 79 mm[Hg] Avel Camacho MD Work Phone: [facility] 01-14-2023 15:51-0400 Heart rate 65 /min Avel Camacho MD Work Phone: [facility] 01-14-2023 15:51-0400 SaO2% (BldA) [Mass fraction] 97 % Avel Camacho MD Work Phone: [facility] 01-14-2023 15:51-0400 Systolic blood pressure 165 mm[Hg] Avel Camacho MD Work Phone: [facility] 12-31-2022 11:30-0400 Body height 180.34 cm Nestor Ball Other [facility] Other 12-31-2022 11:30-0400 Body mass index (BMI) [Ratio] 26.27 kg/m2 Nestor Ball Other [facility] Other 12-31-2022 11:30-0400 Body weight 85.46 kg Nestor Ball Other [facility] Other 12-31-2022 11:30-0400 Diastolic blood pressure 70 mm[Hg] Nestor Ball Other [facility] Other 12-31-2022 11:30-0400 Respiratory rate 12 /min Nestor Ball Other [facility] Other 12-31-2022 11:30-0400 Systolic blood pressure 137 mm[Hg] Nestor Estrella Other [facility] Other Encounters Encounter Date Encounter Type Care Provider Facility Start: 12-16-2023 ambulatory Kylie Ramseyi ty:[facility] Start: 12-11-2023 ambulatory Kylie Ramseyi ty:[facility] Start: 12-05-2023 ambulatory Kylie Ramseyi ty:[id number] Start: 11-22-2023 End: 11-22-2023 ambulatory Nestor Estrella Other [facility] Other Start: 11-22-2023 Telephone encounter Nestor Estrella [facility] Start: 11-20-2023 End: 11-20-2023 ambulatory [facility] Start: 11-20-2023 End: 11-20-2023 Office outpatient visit 15 minutes [facility] DO Work Phone: [facility] Comment on above: Atherosclerosis of n ative coronary artery, unspecified whether angina present, unspecified whether stebbins or transplanted heart; Stented coronary artery; Non-ST elevation myocardial infarction (NSTEMI) ([facility] Hyperlipidemia, unspecified hyperlipidemia type; History of colon cancer; Never smoked any substance; Malignant neoplasm of urinary bladder, unspecified site ([facility]) Start: 11-07-2023 End: 11-07-2023 ambulatory Nestor Sameer Other [facility] Other Start: 11-07-2023 Office outpatient vi sit 15 minutes Nestor Estrella [facility] Start: 10-28-2023 End: 10-28-2023 ambulatory Imad Asaad Other [facility] Other Start: 10-28-2023 Telephone encounter Impat Asaad [facility] Start: 10-23-2023 End: 10-23-2023 ambulatory Nestor Sameer Facility:[facility] Start: 10-23-2023 End: 10-23-2023 ambulatory DO Nestor Ball Work Phone: [facility] Work Phone: Start: 10-23-2023 End: 10-23-2023 Patient encounter procedure DO Nestor Estrella Work Phone: [facility] Work Phone: Start: 10-10-2023 End: 10-10-2023 Emergency department patient visit Josafat Sun MD Work Phone: [facility] Start: 10-07-2023 End: 10-07-2023 ambulatory Imad Asaad Other [facility] Other Start: 10-07-2023 Office outpatient ne w 45 minutes Imad Asaad [facility] Start: 10-04-2023 End: 10-04-2023 ambulatory Nestor Ball Other [facility] Other Start: 10-04-2023 Office outpatient vi sit 15 minutes Nestor Ball [facility] Start: 09-04-2023 End: 09-04-2023 ambulatory Nestor Ball Other [facility] Other Start: 09-04-2023 Office outpatient vi sit 15 minutes Nestor Ball [facility] Start: 09-04-2023 Telephone encounter Nestor Ball [facility] Start: 08-21-2023 End: 08-21-2023 ambulatory Nestor Ball Other [facility] Other Start: 08-21-2023 Office outpatient vi sit 15 minutes Nestor Ball [facility] Start: 08-21-2023 Telephone encounter Nestor Ball [facility] Start: 08-09-2023 End: 08-09-2023 ambulatory Nestor Ball Other [facility] Other Start: 08-09-2023 Telephone encounter Nestor Ball [facility] Start: 08-06-2023 End: 08-06-2023 ambulatory Nestor Ball Other [facility] Other Start: 08-06-2023 Telephone encounter Nestor Estrella [facility] Start: 08-02-2023 End: 08-02-2023 ambulatory Nestor Estrella Other [facility] Other Start: 08-02-2023 Office outpatient vi sit 15 minutes Nestor Estrella [facility] Start: 07-31-2023 End: 07-31-2023 ambulatory Nestor Estrella Other [employer] Other Start: 07-31-2023 Telephone encounter Nestor [facility] Start: 07-10-2023 End: 07-10-2023 ambulatory Nestor Estrella Other [facility] Other Start: 07-10-2023 Telephone encounter Nestor SINGH [facility] Start: 07-08-2023 Chart Update Nestor soriano Work Phone: [facility] 250 DO Work Phone: Start: 07-08-2023 End: 07-08-2023 ambulatory Nestor Estrella Other [facility] Other Start: 07-08-2023 Patient encounter procedure Nestor Estrella [facility] Start: 07-08-2023 Telephone encounter Nestor Sameer FRANCISCO [facility] Start: 06-25-[address] Adriel fiore [place] Facility:[id number] Start: 06-17-2023 ambulatory Kylie Jordan ty:[facility] Start: 06-12-2023 ambulatory Kylie Ramseyi ty:[facility] Start: 06-07-2023 End: 06-07-2023 ambulatory Nestor Estrella Other [facility] Other Start: 06-07-2023 Office outpatient vi sit 15 minutes Nestor Estrella [facility] Start: 06-06-2023 ambulatory Kylie Ramseyi ty:CD:[id number] Start: 05-16-2023 Rx Renewal [facility] E [facility] Work Phone: Start: 05-14-2023 End: 05-15-2023 ambulatory Kylie DIETRICH Facility:[facility] Start: 05-13-2023 ambulatory Kylie DIETRICH Facili ty:CD:[id number] Start: 05-10-2023 End: 05-11-2023 ambulatory Kylie DIETRICH Facility:[facility] Start: 05-10-2023 End: 05-11-2023 ambulatory Kylie DIETRICH Facility: [facility] Start: 05-09-2023 End: 05-09-2023 ambulatory Nestor Estrella Other [facility] Other Start: 05-09-2023 Telephone encounter Nestor SINGH [facility] Start: 05-02-2023 Telephone encounter Nestor SINGH G [facility] Start: 05-02-2023 Office outpatient vi sit 15 minutes Nestor Estrella [facility] Work Phone: Start: 05-02-2023 End: 05-02-[address] Nestor Estrella [facility] Other Start: 04-22-2023 Telephone encounter [facility] Start: 04-22-2023 End: 04-23-2023 Evaluation and management of inpatient Nestor Sameer Facility:[facility] Start: 04-22-2023 End: 04-23-2023 Evaluation and management of inpatient DO Nestor Ball Work Phone: [facility] Work Phone: Start: 04-22-2023 End: 04-22-[address] Adriel Morgan [facility] [employer] Other Start: 04-12-2023 End: 04-12-2023 ambulatory Nestor Estrella Other [place] [facility] Other Start: 04-12-2023 Office outpatient vi sit 15 minutes Nestor Estrella [facility] Start: 04-08-2023 End: 04-09-2023 ambulatory Kylie DIETRICH Facility:[facility] Start: 04-08-2023 End: 04-08-2023 Patient encounter procedure Kylie DIETRICH [facility] Start: 03-19-2023 End: 03-19-2023 ambulatory Nestor Estrella Other [facility] Other Start: 03-19-2023 Telephone encounter Nestor SINGH [facility] Start: 03-11-2023 End: 03-12-2023 ambulatory Kylie DIETRICH Facility:[facility] Start: 02-06-2023 End: 02-06-2023 ambulatory Nestor Estrella Other [facility] Other Start: 02-06-2023 Office outpatient vi sit 15 minutes Nestor Estrella [facility] Start: 02-06-2023 Telephone encounter Nestor SINGH G [facility] Start: 01-31-2023 End: 01-31-2023 ambulatory Nestor Estrella Other [facility] Other Start: 01-31-2023 Telephone encounter Nestor SINGH [facility] Start: 01-18-2023 End: 01-19-2023 ambulatory TASHA CHILDERS . Facility: Start: 01-14-2023 End: 01-14-2023 ambulatory AVEL CAMACHO Facility:[facility] Start: 01-14-2023 End: 01-14-2023 Patient encounter procedure Avel Camacho MD Work Phone: Colorectal Surgery Comment on above: Irregular bowel habi ts (Primary Dx) Start: 01-07-2023 Telephone encounter Nestor Sameer [facility]H [facility] Start: 01-07-2023 End: 01-08-[address] KYLIE DIETRICH . [employer] Other Start: 12-31-2022 End: 12-31-2022 ambulatory Nestor Estrella Other [facility] Other Start: 12-31-2022 Office outpatient vi sit 25 minutes Nestor Estrella [facility] Start: 12-28-2022 ambulatory Kylie DIETRICH Facili ty:[facility] Start: 12-27-2022 Telephone encounter Nestor Estrella [facility] Start: 12-27-2022 End: 12-28-[address] NESTOR ESTRELLA [facility] [employer] Other Start: 12-25-2022 End: 12-25-2022 ambulatory Reid Ann Other [facility] Other Start: 12-25-2022 Telephone encounter Reid Ann [facility] Start: 12-20-[address] KYLIE DIETRICH . Fac ility:[facility]1 Start: 12-12-[address] KYLIE DIETRICH . Fac ility:[facility] Start: 11-12-2022 End: 11-12-[address] KYLIE DIETRICH . Facility:[facility] Start: 11-04-2022 Evaluation and management of inpatient JIMMY ESTRELLA Facility:[facility] Start: 11-04-2022 End: 11-04-2022 Evaluation and management of inpatient [facility] Outside Imaging Ct Scan So Outside Imaging Second Opinion Start: 11-03-2022 End: 11-05-2022 Evaluation and management of inpatient LUKE LAN Facility:[facility] Start: 11-03-2022 End: 11-03-[address] HANG OHARA Facility:[facility] Start: 11-02-2022 End: 11-02-2022 Patient encounter procedure Kylie DIETRICH [facility] Start: 10-04-2022 End: 10-04-[address] KYLIE DIETRICH . Facility:[facility] Start: 09-28-2022 End: 09-29-[address] NESTOR ESTRELLA Facility:[facility] Start: 09-28-2022 End: 09-28-2022 Patient encounter procedure Kylie DIETRICH [facility] Start: 09-19-2022 End: 09-19-2022 Patient encounter procedure Marina FariasWesley Rufus [facility] Start: 08-23-2022 End: 08-23-[address] KYLIE DIETRICH . Facility:[facility] Start: 08-08-2022 End: 08-08-2022 Patient encounter procedure BRANDO BARRAGAN [facility] Start: 07-02-2022 End: 07-03-[address] NESTOR ESTRELLA Facility:[facility] Start: 06-11-2022 End: 06-11-[address] KYLIE DIETRICH . Facility:[facility] Start: 06-04-2022 End: 06-04-2022 Patient encounter procedure Kylie DIETRICH [facility] [employer] Start: 04-30-2022 End: 04-30-[address] KYLIE DIETRICH . Facility:[facility]1 Start: 04-25-2022 End: 04-25-2022 Patient encounter procedure Marina MWesley Solanodarvin [facility] [employer] Start: 04-09-2022 End: 04-09-[address] NESTOR ESTRELLA Facility:[facility]1 Start: 04-06-2022 End: 04-06-[address] NESTOR ESTRELLA Facility:[facility] Start: 04-02-2022 End: 04-02-[address] KYLIE DIETRICH . Facility:[facility] Start: 03-30-2022 End: 03-30-2022 Patient encounter procedure Kylie DIETRICH [facility] Start: 03-28-2022 End: 06-09-[address] NESTOR ESTRELLA Facility:[facility] Start: 03-05-2022 End: 03-05-[address] KYLIE DIETRICH . Facility:[facility] Start: 03-02-2022 End: 03-02-2022 Patient encounter procedure Kylie DIETRICH [facility] Start: 02-07-2022 End: 02-08-[address] NESTOR ESTRELLA Facility:[facility] Start: 01-08-2022 End: 01-08-2022 Patient encounter procedure Kylie DIETRICH [facility] Start: 05-09-2017 Ambulatory [facility] Ambulatory Start: 05-06-2017 End: 05-10-2017 Ambulatory [facility] Ambulato ry Procedures Date Procedure Procedure [...] Phone: Start: 06-25-2023 Echocardiography Damon in E S[place] Work Phone: Start: 04-22-2023 CL LHC & COR Angio DO B enjamin Sameer Work Phone: Start: 04-22-2023 CL Stent 1st Vessel CX CASSIDY DO Nestor Estrella Work Phone: Start: 11-04-2022 Ct abdomen & pelvis w/contrast material Nandini Patton MD Work Phone: Start: 12-13-2020 Cystoscopy and laser destruction of bladder lesion Kylie DIETRICH Start: 05-26-2020 Transurethral resect ion of bladder neoplasm Kylie DIETRICH Start: 10-21-2001 Hydrocelectomy Kylie DIETRICH Cardiac catheterization Piyush wojciech Estrella Work Phone: Cataract (disorder) Kylie DIETRICH Comment on above: left colon resection Kyliezak BAZANDarvin PHAM Colonoscopy Kylie DIETRICH Colonoscopy Nestor Estrella Work Phone: History of placement of stent for coronary artery disease Status post insertion of drug eluting coronary artery stent Nestor Estrella Work Phone: Insertion of arterial stent Nestor Estrella Work Phone: Operation on gallbladder Eleuterio alida Estrella Work Phone: Comment on above: tumor removal; Partial resection of colon B syedalida Estrella Work Phone: Plan of Treatment Date Care Activity Detail Author Start: 01-18-2033 DTaP/Tdap/Td Vaccine s (2 - Td or Tdap) DTaP/Tdap/Td Vaccines (2 - Td or Tdap) [facility] Start: 01-18-2033 Tetanus vaccination TETANUS [facility] Start: 10-09-2024 Diabetes mellitus screening Diabetes Screening [facility] Start: 09-28-2024 End: 09-28-2024 Patient encounter procedure 09/28/2024 2:00 PM EST Office Visit [facility] [address] [place] [address] [place] [address] Memo Mccall MD [address] [place] [id number] [facility] Start: 05-20-2024 End: 05-20-2024 Patient encounter procedure 05/20/2024 9:50 AM EDT Office Visit [facility] [address] [place] [id number] Adriel Morgan, DO [address] [place] [address] [facility] Start: 11-20-2023 FUV, Provider: Adriel Morgan, Status: Pen, Time: 9:20 AM FUV, Provider: Adriel Morgan, Status: Pen, Time: 9:20 AM [facility] 250 DO Work Phone: Start: 06-25-2023 ECHO, Provider: DANIELLA NUNEZ [facility] 01,[id number], Status: Pen, Time: 12:30 PM ECHO, Provider: TANNER [facility] 01,[id number], Status: Pen, Time: 12:30 PM [facility] 250 DO Work Phone: Start: 06-21-2023 COVID-19 VACCINE ( season) COVID-19 VACCINE ( season) [facility] Start: 06-21-2023 Influenza vaccination INFLUENZA VACC INE (#1) [facility] Start: 04-23-2023 [facility] Start: 04-22-2023 End: 04-22-2023 Referral to director account management [facility] Start: 04-22-2023 Referral to cardiac rehabilitation program [facility] Start: 04-22-2023 Hospital admission [facility] Start: 10-21-2022 ADVANCE DIRECTIVE DISCUSSION ADVANCE DIRECTIVE DISCUSSION [facility] Start: 10-21-2022 DEPRESSION ASSESSMENT DEPRESSION ASS ESSMENT [facility] Start: 06-21-2022 Influenza vaccination INFLUENZA (#1) [facility] Start: 10-24-2018 Pneumococcal vaccination PNEUM OCOCCAL VACCINE SERIES (2 - PCV) [facility] Start: 10-24-2018 Pneumococcal Vaccine : 65+ Years (2 - PCV) Pneumococcal Vaccine: 65+ Years (2 - PCV) [facility] Start: 01-22-2015 DIABETES SCREEN DIABETES SCREEN [facility] Start: 2001 PNEUMOCOCCAL: 65+ (1 - PCV) PNEUMOCOCCAL: 65+ (1 - PCV) [facility] Start: 1986 SHINGRIX VACCINE (1 of 2) SHINGRIX VACCINE (1 of 2) [facility] Start: 1981 Screening for malign ant neoplasm of colon COLORECTAL CANCER SCREENING DISCUSSION [facility] Start: 1955 Urine microalbumin profile DTAP,TDAP,TD (1 - Tdap) [facility] Start: 1936 COVID-19 VACCINE (#1) COVID-19 VACCI NE (#1) [facility] Start: 1936 Lipid panel Lipid Panel [facility] Start: 1936 Medicare Annual Well ness Visit Medicare Annual Wellness Visit (AWV) [facility] Calprotectin [Mass/m ass] in Stool [facility] End: 10-09-2023 GOLD TOP TUBE [facility] Comment on above: Once for 1 Occurrenc es starting 10/09/2023 until 10/09/2023 End: 10-09-2023 LAVENDER TOP TUBE [facility] Comment on above: Once for 1 Occurrenc es starting 10/09/2023 until 10/09/2023 Patient Education Coronary Angio plasty (DC) Coronary Stenting (DC) Angina (DC) Chest Pain (DC) Drug Eluting Stents [facility] Work Phone: Patient referral [facility] Work Phone: End: 10-09-2023 RAINBOW DRAW [facility] Work Phone: Comment on above: One Time for 1 Occur rences starting 10/09/2023 until 10/09/2023 Immunizations Immunization Date Immunization Notes Care Provider Kaitlynn morejon 07-08-2023 influenza, high dose seasonal, preservative-free Nestor Estrella Other [employer] [facility] [employer] Other 01-18-2023 tetanus toxoid, reduced diphtheria toxoid, and acellular pertussis vaccine, adsorbed Nestor Estrella Work Phone: [facility] [employer] 250 DO Work Phone: 08-30-2022 COVID-19 Pfizer (Pediatric) Nestor Estrella Other [facility] Other 08-30-2022 Pfizer COVID-19 Vac Bivalent 30 MCG/0.3ML Intramuscular Suspension Nestor Estrella Work Phone: [facility] [employer] [facility] DO Work Phone: 07-02-2022 Fluad Quadrivalent 0 .5 ML Intramuscular Prefilled Syringe Nestor Estrella Work Phone: [facility] [employer] [facility] DO Work Phone: 07-02-2022 influenza virus vaccine, split virus (incl. purified surface antigen) Nestor Estrella Other [facility] Other 07-02-2022 influenza virus vaccine, unspecified formulation Josafat Sun MD Work Phone: [facility] 01-19-2022 Comirnaty 30 MCG/0.3 ML Intramuscular Suspension Nestor Estrella Work Phone: [facility] [employer] [facility] DO Work Phone: 01-19-2022 COVID-19 Vaccine Pfizer - Documentation Purposes Only Nestor Estrella Other [employer] Other 10-01-2021 zoster vaccine recombinant Nestor Estrella Work Phone: [facility] [employer] 250 DO Work Phone: 07-31-2021 diphtheria, tetanus toxoids and acellular pertussis vaccine, unspecified formulation Nestor Estrella Other [employer] Other 07-31-2021 influenza virus vaccine, split virus (incl. purified surface antigen) Nestor Estrella Other [facility] [employer] Other 07-27-2021 influenza, seasonal, injectable, preservative free Nestor Estrella Work Phone: [facility] 250 DO Work Phone: 06-09-2021 Pfizer-BioNTech COVID-19 Vacc 30 MCG/0.3ML Intramuscular Suspension Nestor Estrella Work Phone: [facility] 250 DO Work Phone: 04-14-2021 zoster vaccine recombinant Nestor Estrella Work Phone: [facility] 250 DO Work Phone: 12-02-2020 Pfizer-BioNTech COVID-19 Vacc 30 MCG/0.3ML Intramuscular Suspension Nestor Estrella Work Phone: [facility] 250 DO Work Phone: 11-10-2020 Pfizer-BioNTech COVID-19 Vacc 30 MCG/0.3ML Intramuscular Suspension Nestor Estrella Work Phone: [facility] 250 DO Work Phone: 09-26-2020 bacillus calmette-blossom vaccine Kylie DIETRICH [facility] 09-12-2020 bacillus calmette-blossom vaccine Kylie DIETRICH [facility] 09-05-2020 bacillus calmette-blossom vaccine Kylie DIETRICH [facility] 08-29-2020 bacillus calmette-blossom vaccine Kylie DIETRICH [facility] 08-15-2020 bacillus calmette-blossom vaccine Kylie DIETRICH [facility] 08-08-2020 bacillus calmette-blossom vaccine Kylie DIETRICH [facility] 07-01-2020 influenza virus vaccine, split virus (incl. purified surface antigen) Nestor Estrella Other [employer] Other 08-03-2019 influenza, seasonal, injectable Nestor Estrella Work Phone: [place] [address] DO Work Phone: 07-15-2019 influenza virus vaccine, split virus (incl. purified surface antigen) Nestor Estrella Other [employer] Other 07-15-2018 influenza virus vaccine, split virus (incl. purified surface antigen) Nestor Estrella Other [employer] Other 07-15-2018 Seasonal trivalent influenza vaccine, adjuvanted, preservative free Nestor Estrella Work Phone: [place] [address] DO Work Phone: 10-24-2017 pneumococcal polysaccharide vaccine, 23 valent Nestor Estrella Work Phone: [place] [address] DO Work Phone: 06-27-2016 influenza virus vaccine, split virus (incl. purified surface antigen) Nestor Estrella Other [employer] Other 06-27-2016 pneumococcal conjuga te vaccine, 13 valent Nestor Estrella Other [employer] Other 10-29-2013 zoster vaccine, live Benjami n E Ball Work Phone: -[facility] 250 DO Work Phone: Payers Date Payer Category Payer Self-pay [id number] 2022 Unknown 2016 Private Health Insurance [employer]ET[employer] A ETNA MEDICARE SUPPLEMENT [id number] 2016-Present [phone] [address] [address] [place] [address] Indemnity [id number] 2003 Medicare [id number] 2001 Medicare [id number] 1959 Medicare [id number] 1959 Private Health Insurance [facility] [id number] 1936 Unknown [id number] 2.16.840.1.089336.3.579. 2.594 1936 Unknown [id number] 2.16.840.1.458775.3.579. 2.594 1936 Unknown [id number] 2.16.840.1.941292.3.579. 2.593 1936 Unknown [id number] 2.16.840.1.694068.3.579. 2.593 1936 Unknown [id number] 2.16.840.1.015986.3.579. 2.593 1936 Unknown [id number] 2.16.840.1.075670.3.579. 2.593 1936 Unknown [id number] 2.16.840.1.090110.3.579. 2.593 1936 Unknown [id number] 2.16.840.1.684199.3.579. 2.593 1936 Unknown [id number] 2.16.840.1.965611.3.579. 2.593 1936 Unknown [id number] 2.16.840.1.487686.3.579. 2.593 1936 Unknown [id number] 2.16.840.1.885369.3.579. 2.593 1936 Unknown [id number] 2.16.840.1.575346.3.579. 2.593 1936 Unknown [id number] 2.16.840.1.865323.3.579. 2.593 1936 Unknown [id number] 2.840.1.705227.3.579. 2.593 1936 Unknown [id number] 2.840.1.214634.3.579. 2.593 1936 Unknown [id number] 2.840.1.009999.3.579. 2.593 1936 Unknown [id number] 2.840.1.999143.3.579. 2.593 1936 Unknown [id number] 2.840.1.447385.3.579. 2.593 1936 Unknown [id number] 2.840.1.509833.3.579. 2.593 1936 Unknown [id number] 2.840.1.207630.3.579. 2.593 1936 Unknown [id number] 2.840.1.584302.3.579. 2.593 1936 Unknown [id number] 2.840.1.570259.3.579. 2.1068 1936 Unknown [id number] 2.840.1.023515.3.579. 2.356 1936 Unknown [id number] 2.16.840.1.160214.3.579. 2.356 1936 Unknown [id number] 2.16.840.1.294386.3.579. 2.356 1936 Unknown [id number] 2.16.840.1.983371.3.579. 2.727 1936 Unknown [id number] 2.16.840.1.534382.3.579. 2.727 1936 Unknown [id number] 2.16.840.1.120580.3.579. 2.72 1936 Unknown [id number] 2.16.840.1.041061.3.579. 2.72 1936 Unknown [id number] 2..840.1.565670.3.579. 2.72 1936 Unknown [id number] 2.16.840.1.967025.3.579. 2.727 1936 Unknown [id number] 2..840.1.774048.3.579. 2.727 1936 Unknown [id number] 2.16.840.1.085425.3.579. 2.727 1936 Unknown [id number] 2.16.840.1.725941.3.579. 2.72 1936 Unknown [id number] 2.16.840.1.227516.3.579. 2.727 1936 Unknown [id number] 2.16.840.1.460208.3.579. 2.727 1936 Unknown [id number] 2.16.840.1.736966.3.579. 2.1244 Unknown [id number] 2.16.840.1.017957.3.579. 2.531 Unknown [id number] 2.16.840.1.589217.3.579. 2.531 Social History Date Type Detail Facility Start: 09-01-2021 End: 11-04-2022 Tobacco smoking status Never smoked tobacco (finding) [facility] Start: 11-04-2022 End: 11-20-2023 Sex Assigned At Male [facility] Start: 01-23-2012 End: 11-04-2022 Tobacco use and exposure Smokeless tobacco non-user [facility] Work Phone: Start: 01-14-2023 End: 11-20-2023 Alcohol intake Current drinker of alcohol (finding) [facility] Start: 01-14-2023 Alcohol Comment 1/5 of whiskey every 6 months [facility] Start: 1936 Sex Assigned At Not on file C [facility] Start: 1936 Sex Assigned At Male F [facility] Start: 11-04-2022 End: 11-20-2023 No illicit drug use No illicit drug use [facility] 250 DO Work Phone: Start: 11-04-2022 Alcohol intake Lifetime non-d yu (finding) [facility] Start: 11-20-2023 Alcohol Comment beer [facility] Work Phone: Start: 11-10-2023 End: 11-20-2023 Exposure to SARS-CoV-2 (event) Not sure [facility] Medical Equipment Procedure Code Equipment Code Equipment Origin al Text Equipment Identifier Dates CL STENT GLENNY FRONTIER 3.0 X 12 FDA Start: 04-22-2023 Goals Date Patient Goal Desired Activity /State Functional Status Date Assessment Result Facility 04-23-2023 Functional status Patient at Baseline [facility] Work Phone: Mental Status Date Assessment Result Facility 04-23-2023 Cognitive function Cognitive Sta tus Patient at Baseline [facility] Work Phone: Clinical Notes 01-08-2022 to 11-20-2023 Adriel Morgan, DO - 11/20/2023 9:20 AM ESTPatient Instructions Note Date & Type Note Facility 11-20-2023 History of Present illness Narrative Myra Kong is a 88 y.o. male Chief Complaint Follow-up 88-year-old gentleman returns for follow-up he is doing well he has no cardiovascular complaints or events nitrate usage. 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 He did sustain transient small bowel obstruction and Stanley treated conservatively. He is due for bladder irrigation for bladder cancer coming up with Dr. Karlo pisano. He remains on single agent clopidogrel (supposed to be on DAPT) and will make sure he is on DAPT following today's visit. He has a history non-ST elevation [place] due to occluded obtuse marginal branch with [...] Disp: , Rfl: Assessment/Plan 1. Atherosclerosis of stebbins coronary artery, unspecified whether angina present, unspecified whether stebbins or transplanted heart 2. Stented coronary artery 3. Non-ST elevation myocardial infarction (NSTEMI) ([facility]) 4. Hyperlipidemia, unspecified hyperlipidemia type 5. History of colon cancer 6. Never smoked any substance 7. Malignant neoplasm of urinary bladder, unspecified site ([facility]/HCC) Scribe Attestation By signing my name below, Radha Robb LPN , Scribe attest that this documentation has been prepared under the direction and in the presence of Adriel Morgan DO. documented in this encounter [facility] Work Phone: 11-20-2023 Instructions Lorena Garcia [...] of your visit. documented in this encounter [facility] Work Phone: 11-07-2023 Evaluation note Encounter [...] at HS, restarting at first s/s constipation [facility] Other [id number] Miscellaneous Notes* CDU Provider Note - Raulito [...] see in follow up, our CDU clinical protective services case worker will assist the patient with their follow [...] prescriptions, and ambulatory referrals. [facility] Progress note* CDU Provider Note - Raulito [...] see in follow up, our CDU clinical protective services case worker will assist the patient with their follow [...] instructions, discharge summary, prescriptions, and ambulatory referrals. [facility] Work Phone: 1(156) 585-544712-21-2023 Hospital Discharge instructions* Discharge Instructions* Seferino Han, COUNTER MANAGER-DELIMER - 10/10/2023 3:46 PM EST Please call GI to schedule a follow-up appointment. Follow-up: Call as soon as possible for an appointment: Gastroenterology Clinic: [phone] [facility] Note* Tracey Lawrence RN - 10/10/2023 1:59 PM EST Reason for Consult: Keith Documentation Spoke with Kennedy Kong @ 1219 Action Plan: Emergency Department Software Support Engineer and discussed the Medicare Outpatient Observation Notice (KEITH). Patient's questions answered and they verified understanding. Patient instructed to call Medicare at1-800-MEDICARE ( ) if they have any additional questions. Document signed by patient and Software Support Engineer. Copy provided for patient. Document scanned to [email or web address] ANDERSON Emergency Department Clinical Software Support Engineer [email or web address] Available via secure chat [facility]12-21-2023 Emergency department Note* Tracey Lawrence RN - 10/10/2023 1:59 PM EST Reason for Consult: Keith Documentation Spoke with Kennedy Kong @ 1219 Action Plan: Emergency Department Software Support Engineer and discussed the Medicare Outpatient Observation Notice (KEITH). Patient's questions answered and they verified understanding. Patient instructed to call Medicare at1-800-MEDICARE ( ) if they have any additional questions. Document signed by patient and Software Support Engineer. Copy provided for patient. Document scanned to [email or web address] Tracey ANDERSON Emergency Department Clinical Software Support Engineer [email or web address] Available via secure chat * Bronwyn Schaeffer [...] obstruction Disposition: Observation Unit Patient Kennedy Kong [id number] to be placed in observation unit for [...] note was dictated with the assistance of [employer] dictation software. Attempts were made to proofread [...] Denies abd pain, nausea. [facility] Emergency department Note* Bronwyn Schaeffer MD [...] obstruction Disposition: Observation Unit Patient Kennedy Kong [id number] to be placed in observation unit for [...] note was dictated with the assistance of [employer] dictation software. Attempts were made to proofread text, however some errors may still be present. Bronwyn Schaeffer MD Resident 10/10/23 0510 [facility] Work Phone: [phone] Emergency department Note* Dipti Patricia RN - 10/10/2023 1:38 AM EST Bed: E021 Expected date: Expected time: Means of arrival: Comments: triage [facility]12-20-2023 Emergency department Note* Lucy Ibarra RN - 10/09/2023 10:32 PM EST Pt to ED from OSH for SBO. Last BM approx 2 hrs ago, but hadn't fr 7 days prior to that. Vomited this am. Denies abd pain, nausea. 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 [facility] Other 12-15-2023 Evaluation note* Encounter Date Diagnosis [...] or fever. High fiber, low residue diet. [facility] Other 11-15-2023 Evaluation note* Encounter Date Diagnosis [...] - Z90.49) Secondary to IBD, in remission [facility] Other 11-01-2023 Evaluation note* Encounter Date Diagnosis [...] area clean. Duoderm may help protect area [facility] Other 11-01-2023 Evaluation note* Encounter Date Diagnosis Assessment Notes Treatment Notes Treatment Clinical Notes Aug, Pressure injury of sacral region, stage 1 (ICD-10 - L89.151) [facility] Other 10-17-2023 Evaluation note* Encounter Date Diagnosis Assessment Notes Treatment Notes Treatment Clinical Notes Jul, Dysuria (ICD-10 - R30.0) [facility] Other 10-13-2023 Evaluation note* Encounter Date Diagnosis [...] continue Tylenol, hot showers, avoid strenuous activity [facility] Other 09-18-2023 Evaluation note* Encounter Date Diagnosis [...] cancer (ICD-10 - Z85.51) No s/s recurrence [facility] Other 08-18-2023 Evaluation note* Encounter Date Diagnosis Assessment Notes Treatment Notes Treatment Clinical Notes May, Spider bite wound, accidental or unintentional, initial encounter (ICD-10 - T63.301A) May, Generalized muscle ache (ICD-10 - M79.10) May, Adverse reaction to statin medication (ICD-10 - T46.6X5A) May, Elevated cholesterol (ICD-10 - E78.00) [facility] Other 07-25-2023 Note [id number]:[address] [place] [address] 05-14-2023 NoteCustom Cystoscopy ? Voiding after the [...] if you have a fever over 100 degrees.[facility] 05-02-2023 Evaluation note* Encounter Date Diagnosis Assessment Notes Treatment Notes Treatment Clinical Notes Apr, Tinea pedis of both feet (ICD-10 - B35.3) [facility] Other 07-04-2023 Progress note Author Hang Pedersen [facility] April 23, 2023 9:24am Note Date/Time April 23, 2023 9:20a m [facility] [address] [place] [address] Cardiology Progress Note Signed Patient: Kennedy Kong MR#: [id number] : 1935 Acct:[id number] Age/Sex: 87 / M Adm Date: 3 Loc: Room: [address] [place] [address] Type: ADM IN Attending Dr: Kiki Motta [...] MPV Neut % (Auto) Lymph % (Auto) [place] % (Auto) Eos % (Auto) Baso % (Auto) Nucleat RBC Rel Count Neut # (Auto) Lymph # (Auto) [place] # (Auto) Eos # (Auto) Baso # (Auto) PHA Creatinine Clear Sodium Potassium Chloride Carbon Dioxide Anion Gap BUN Creatinine Est GFR (CKD-EPI) Glucose Calcium Troponin I High Sens 18989.8 H* 49602.7 H* 37418.2 H* Triglycerides Cholesterol LDL Cholesterol, Calc VLDL Cholesterol HDL Cholesterol Cholesterol/HDL Ratio 04/22/23 04/23/23 04/23/23 23:35 03:41 03:41 Corrected WBC 8.1 Uncorrected WBC Count 8.1 RBC 4.52 Hgb 13.4 Hct 40.6 MCV 89.8 MCH 29.7 MCHC 33.1 RDW 13.6 Plt Count 215 MPV 6.8 Neut % (Auto) 73.2 Lymph % (Auto) 10.5 [place] % (Auto) 14.1 Eos % (Auto) 1.5 Baso % (Auto) 0.7 Nucleat RBC Rel Count 0.1 Neut # (Auto) 5.9 Lymph # (Auto) 0.9 L [place] # (Auto) 1.1 H Eos # (Auto) 0.1 Baso # (Auto) 0.1 PHA Creatinine Clear 55.30 Sodium 137 Potassium 4.5 Chloride 106 Carbon Dioxide 25.0 Anion Gap 10.5 BUN 24 Creatinine 0.99 Est GFR (CKD-EPI) > 60.0 Glucose 110 H Calcium 8.7 Troponin I High Sens 44885.0 H* Triglycerides 97 Cholesterol 148 LDL Cholesterol, Calc 73 VLDL Cholesterol 19 HDL Cholesterol 56 Cholesterol/HDL Ratio 2.6 04/23/23 03:41 Corrected WBC Uncorrected WBC Count RBC Hgb Hct MCV MCH MCHC RDW Plt Count MPV Neut % (Auto) Lymph % (Auto) [place] % (Auto) Eos % (Auto) Baso % (Auto) Nucleat RBC Rel Count Neut # (Auto) Lymph # (Auto) [place] # (Auto) Eos # (Auto) Baso # (Auto) PHA Creatinine Clear Sodium Potassium Chloride Carbon Dioxide Anion Gap BUN Creatinine Est GFR (CKD-EPI) Glucose Calcium Troponin I High Sens 68013.2 H* Triglycerides Cholesterol LDL Cholesterol, Calc VLDL [...] Please make sure patient has follow-up in [facility] within 10 days. Pending a favorable clinical [...] <Electronically signed by Hang Pedersen MD> 04/23/23923 [facility] Work Phone: 1(264) 702-739007-03-2023 Consult note Author W Eddie [facility] April 22, 2023 12:46pm Note Date/Time April 22, 2023 12:[address] [facility] [address] [place] [address] Cardiology Consult Note Signed Patient: Kennedy Kong MR#: [id number] : 1935 Acct:[id number] Age/Sex: 87 / M Adm Date: 3 Loc: Room: [address] [place] [address] Type: ADM IN Attending Dr: Kiki Motta MD Copies to: MD Nestor Todd DO W Scott Sheldon, DO~ Cardiology HPI History of Present Illness Consult Date: 04/22/23 Reason for Consult: Non-ST elevation WA/ACS HPI: Mr. Kong is a 87 year old male seen in interventional cardiology consultation at request of hospitalist and gentleman who was transferred from [facility] emergency room after being awakened with chest discomfort at 3 AM this morning. The discomfort radiated to his shoulder, back, left side; finally drove himself to the emergency room, he received 1 sublingual nitroglycerin with relief. Initial high-sensitivity troponin was elevated at 648; initial ECGs revealed sinus rhythm with J-point elevation in the inferolateral leads, however somewhat similar to previous remote ECG at [facility] had on record Patient was excepted to the hospitalist service this morning. He did not receive any upstream heparin or antiplatelet therapies, [facility] ECG and labs are reviewed there are [...] <Electronically signed by Ko Morgan DO> 04/22/23 2396 [facility] Work Phone: 1(515) 443-714507-03-2023 [facility] Procedure [facility]07-03-2023 History and physical note Author Kiki Motta [facility] April 22, 2023 11:53am Note Date/Time April 22, 2023 11:[address] [facility] [address] [place] [address] Hospitalist H&P Signed Patient: Kennedy Kong MR#: [id number] : 1935 Acct:[id number] Age/Sex: 87 / M Adm Date: 3 Loc: Room: [address] [place] [address] Type: ADM IN Attending Dr: Kiki Motta [...] negative unless noted below or in HPI [facility] Attestation Statement: The following information was validated [...] signed by Kiki Motta MD> 04/22/23 1153 [facility] Work Phone: [phone]) 358-923906-23-2023 Evaluation note* Encounter Date Diagnosis Assessment Notes Treatment Notes Treatment Clinical Notes Mar, Tinea pedis of both feet (ICD-10 - B35.3) Keep dry, cleanse socks daily and open to air at home. Use cream bid and take Lamisil qd x 14 days [facility] Other 04-19-2023 Evaluation note* Encounter Date Diagnosis Assessment Notes Treatment Notes Treatment Clinical Notes Jan, Carbuncle and furuncle of buttock (ICD-10 - L02.33) Warm compresses or warm soak. Massage Notify office w/ increased swelling, pain or swelling Jan, Rivera hemangioma (ICD-10 - D18.01) Reassured [facility] Other 03-27-2023 NoteHNO ID: [id number] Author: Avel Camacho MD Service: ? Author Type: Physician Type: Progress Notes Filed: 01/17/2023 11:00 PM Note Text: HPI Kennedy Kong is a 87 year [...] - follow up as needed. Avel Camacho, [facility]03-27-2023 Nurse Note* Micaela Henderson MA - 01/14/2023 [...] Temperature: No Drains: No [facility] encounter[facility] History of Present illness Narrative* Avel Camacho MD - 01/14/2023 3:00 PM EDT HPI Kennedy Kong is a 87 year [...] needed. Avel Camacho MD documented in this encounterN[facility]03-13-2023 Evaluation note* Encounter Date Diagnosis Assessment [...] Diet adjustements to control constipation and diarrhea [facility] Other 03-09-2023 Evaluation note* Encounter Date Diagnosis Assessment Notes Treatment Notes Treatment Clinical Notes Dec, Anemia, unspecified type (ICD-10 - D64.9) [facility] Other 03-07-2023 Evaluation note* Encounter Date Diagnosis Assessment Notes Treatment Notes Treatment Clinical Notes Dec, Anemia, unspecified type (ICD-10 - D64.9) [facility] Other 01-13-2023 Evaluation + Plan note Diagnostic Tests Pending * [facility] 11/02/22 [facility] 08-15-2022 Evaluation + Plan note Diagnostic Tests Pending * [facility]) 06/04/22 [facility] 05-13-2022 Evaluation + Plan note Diagnostic Tests Pending * [facility] ([facility]) 03/02/22 [facility] 03-21-2022 Evaluation + Plan note Diagnostic Tests Pending * [facility] ([facility]) 01/08/22 [facility] discharge summary Author Kiki Motta [facility] April 23, 2023 11:20am Note Date/Time April 23, 2023 11:[address] [facility] [address] [place] [address] Discharge Summary Signed Patient: Kennedy Kong MR#: [id number] : 1935 Acct:[id number] Age/Sex: 87 / M Adm Date: 3 Loc: Room: [address] [place] [address]: Kiki Motta MD Copies to: [...] LHC & COR Angio - W Ignacio Morgan, DO p CL Stent 1st Vessel CX CASSIDY - W Ignacio Morgan, Diagnostic Studies Completed and Pending Studies Pending [...] discharge: 04/23/23 03:41: Troponin I High Sens 73279.2 H* 04/23/23 03:41: PHA Creatinine Clear 55.30, [...] % (Auto) 73.2, Lymph % (Auto) 10.5, [place] % (Auto) 14.1, Eos % (Auto) 1.5, Baso % (Auto) 0.7, Nucleat RBC Rel Count 0.1, Neut # (Auto) 5.9, Lymph # (Auto) 0.9 L, [place] # (Auto) 1.1 H, Eos # (Auto) 0.1, Baso # (Auto) 0.1 04/22/23 23:35: Troponin I High Sens 15757.0 H* 04/22/23 20:04: Troponin I High Sens 35503.2 H* 04/22/23 17:07: Troponin I High Sens 13041.7 H* 04/22/23 14:25: Troponin I High Sens 87975.8 H* Exam Physical Exam Vital Signs: Temp [...] doctor or pharmacist, without first calling the director account management who implanted the stent. If you require [...] weight lifting, stair steppers, etc. until the director account management approves these activities. Check with the director account management on your first follow-up visit. CALL YOUR PHYSICIAN at [phone]: -If bleeding should occur from the catheter insertion site- apply pressure to the site then immediately call us. -Report any fever, redness, drainage, increased swelling, or firmness at the catheter insertion site. Some bruising or slight swelling may be present at the time of discharge. -Should arm or leg become cold, numb, white, or blue, contact the director account management immediately. -IF you should experience episodes of [...] is recommended. Please call Central Scheduling at [phone] to schedule your appointment.] The attending director account management or [facility] nurse clinician should provide you with specific instructions regarding activity, diet, medications, and further follow up for you. Follow the medication instructions provided on your discharge. If the dosages and instructions on this sheet differ from the dosage and instructions on the bottle, follow the instructions on the bottle. [facility] is not responsible for incorrect prescription information [...] signed by Kiki Motta MD> 04/23/23 1120 [facility] Work Phone: Evaluation noteNo InformationNort Be At One Other Evaluation note* Diagnosis Irregular bowel habits- Primary Other specified disorder of intestines documented in this encounter [facility] Diagnosis Onset Date Resolution Status Colon cancer acute Essential hypertension acute NSTEMI (non-ST elevated myocardial infarction) acute [facility] Work Phone: Evaluation note* Diagnosis Small bowel obstruction- Primary Unspecified intestinal obstruction Abdominal pain, generalized [facility] assessment information available [facility] Work Phone: Evaluation note* Diagnosis Atherosclerosis of stebbins coronary artery, unspecified whether angina present, unspecified whether stebbins or transplanted heart 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 Non-ST elevation myocardial infarction (NSTEMI) (CMS/HCC) Acute myocardial infarction, subendocardial infarction, episode of care unspecified Hyperlipidemia, unspecified hyperlipidemia type History of colon cancer Personal history of malignant neoplasm of large intestine Never smoked any substance Malignant neoplasm of urinary bladder, unspecified site (CMS/HCC) documented in this encounter [facility] Work Phone: History general Narrative - Reported* [...] Surgical History colonoscopy x2 Surgical History Colectomy 2010 Surgical History scar tissue Surgical History CYSTOSCOPY 2021 Surgical History Cystoscopy 12/2022 Hospitalization History see above [facility] Other History general Narrative - Reported* Type [...] Surgical History colonoscopy x2 Surgical History Colectomy 2010 Surgical History scar tissue Surgical History CYSTOSCOPY 2021 Surgical History Cystoscopy 12/2022 Surgical History LHC, PCI/stent OM branch of the LCx 04/2023 Hospitalization History see above [facility] Other History general Narrative - Reported* Type [...] Surgical History colonoscopy (2001, 2006, 2012, 2015, 2018 Surgical History Colectomy 2010 Surgical History scar tissue Surgical History CYSTOSCOPY 2021 Surgical History Cystoscopy 12/2022 Surgical History LHC, PCI/stent OM branch of the LCx 04/2023 Hospitalization History see above [facility] Other Hospital course Narrative No data available for this section [facility] Discharge instructions No data available for this section [facility] Discharge instructions Additional Instructions DISCHARGE INSTRUCTIONS [...] doctor or pharmacist, without first calling the director account management who implanted the stent. If you require [...] weight lifting, stair steppers, etc. until the director account management approves these activities. Check with the director account management on your first follow-up visit. CALL YOUR PHYSICIAN at [phone]: -If bleeding should occur from the catheter insertion site- apply pressure to the site then immediately call us. -Report any fever, redness, drainage, increased swelling, or firmness at the catheter insertion site. Some bruising or slight swelling may be present at the time of discharge. -Should arm or leg become cold, numb, white, or blue, contact the director account management immediately. -IF you should experience episodes of [...] is recommended. Please call Central Scheduling at [phone] to schedule your appointment.] The attending director account management or [facility] nurse clinician should provide you with specific instructions regarding activity, diet, medications, and further follow up for you. Follow the medication instructions provided on your discharge. If the dosages and instructions on this sheet differ from the dosage and instructions on the bottle, follow the instructions on the bottle. [facility] is not responsible for incorrect prescription information provided by the patient during their visit. Do not stop your medications without consulting your health care provider. Please take the list with you to your next doctor's appointment.[facility] Work Phone: Progress note No data available for this section [facility] reason for referral (narrative)* Consultation (Routine) - New Request Specialty Diagnoses / Procedures Referred By Mart hale Referred To Contact Gastroenterology Diagnoses Small bowel obstruction Abdominal pain, generalized Seferino Han, MIGUEL[employer]DELIMER [address] [place] [address] Referral ID Status Reason Start Date Expiration Date V isits Requested Visits Authorized [id number] New Request 10/10/2023 11/03/2024 1 1 [facility] for referral (narrative)* Consultation (Routine) - Authorized Specialty Diagnoses / Procedures Referred By Mart hale Referred To Contact Cardiology Diagnoses Atherosclerosis of stebbins coronary artery, unspecified whether angina present, unspecified whether stebbins or transplanted heart Stented coronary artery Non-ST elevation myocardial infarction (NSTEMI) ([facility]) Procedures Follow Up In Cardiology Adriel Morgan DO [address] [facility] [address], [address] [address] Adriel Morgan DO [address] [facility], [address] [place] [address] Referral ID Status Reason Start Date Expiration Date V isits Requested Visits Authorized [id number] Authorized 11/20/2023 11/19/2024 1 1 [facility] Work Phone: Reason for visit Narrative* Auth/Cert Specialty Diagnoses / Procedures Referred By Mart hale Referred To Contact Diagnoses Bowel Obstruction Raulito Camacho MD [address] [place] [address] [facility] [address] [place] [address] Referral ID Status Reason Start Date Expiration Date Visits Re quested Visits Authorized [id number] 1 1 [facility] Summary Purpose Family History Relationship Condition Age [...] 06 9:25am Procedure Findings Note MR#: [id number] [facility] Pt. Name: Kennedy Kong Surgery Date: [...] (more content not included)... Note MR#: [id number] [facility] Pt. Name: Kennedy Kong Surgery Date: 04/16/2019 Room #: Z0 Date of : 1935 PROCEDURE NOTE ATTENDING: Gabriel Perez M.D. TEST AUTOMATION ARCHITECT: Marilee Jiménez M.D. PROCEDURE: Colonoscopy with polypectomy [...] gentleman who returns following recent non-ST elevation WA due to occluded obtuse marginal branch with primary revascularization with drug-eluting stent and is doing well. He has mild LV dysfunction, No significant coronary disease, ejection fraction of 45%. 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, his daily activities include lifting up to [...] section and content) DATE CREATED AUTHOR 04/16/2018 [facility] DATE CREATED AUTHOR AUTHOR'S ORGANIZ ATION 04/25/2019 [facility] DATE CREATED AUTHOR AUTHOR'S ORGANIZ ATION 11/04/2019 [facility] DATE CREATED AUTHOR AUTHOR'S ORGANIZ ATION 12/28/2022 [facility] DATE CREATED AUTHOR AUTHOR'S ORGANIZ ATION 01/23/2023 [place] DATE CREATED AUTHOR AUTHOR'S ORGANIZ ATION 01/23/2023 [facility] DATE CREATED AUTHOR AUTHOR'S ORGANIZ ATION 05/03/2023 [facility] DATE CREATED AUTHOR AUTHOR'S ORGANIZ ATION 06/27/2023 [facility] DATE CREATED AUTHOR AUTHOR'S ORGANIZ ATION 09/17/2023 [facility] DATE CREATED AUTHOR AUTHOR'S ORGANIZ ATION 10/27/2023 [facility] DATE CREATED AUTHOR AUTHOR'S ORGANIZ ATION 11/19/2023 [facility] DATE CREATED AUTHOR AUTHOR'S ORGANIZ ATION 11/24/2023 [facility] 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- Other Provider Active Endy Arevalo MD Other Provider Active Lucio Dillon MD Other Provider Active Ko Morgan DO Other Provider Active Christy Love APRN Other Provider Active Hannah Abraham MD Other Provider Active [employer] Relationship Specialty Start Date End Date Jimmy Estrella MD [address] [place] [address] PCP - General Family Medicine 11/03/22 Team Status: Inactive Member Role Status Senthil Estrella DO Primary Care Provider Active Zofia Gates MD Attending Provider Active [employer] Relationship Specialty Start Date End Date Nestor Estrella DO [address] 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 Relationship Specialty Start Date End Date Jimmy Estrella MD [address] [place] [address] PCP - General Family Medicine 11/03/22 REASON FOR VISIT (unrecogniz ed section and content) Opinion Reason Comments Follow-up 6 months 4 month Follow upGI REFERRAL CONSULT Specialty Diagnoses / Procedures Referred By Mart hale Referred To Contact Diagnoses SBO [facility] [address] [place] [address] [facility] [address] [place] [address] Referral ID Status Reason Start Date Expiration Date Visits Re quested Visits Authorized [id number] 1 1 PATIENT IS HERE AT THE [...] or prosecute any alcohol or drug abuse patient.[facility] Scheduled Active and Recently Administ ered [...] mg, Oral, ONCE, 1 dose, On Leslie 23 at 1045 1053 (Given - Provid er: Cyndi Coley RN) Losartan (COZAAR) tablet 25 mg (COMPLETED) 25 mg, Oral, ONCE, 1 dose, On Leslie 23 at 1045 1053 (Given - Provid er: Cyndi Coley RN) Rosuvastatin (CRESTOR) tablet 40 mg 40 mg, Oral, DAILY, First dose on Leslie 23 at 1045, Until Discontinued 1229 (Given - [...] BE BASED ON THE PRIMARY CLINICAL RECORDS. [facility]. provides no warranty or guarantee of the accuracy or completeness of information in this document.
--- NOTE | 2023-11-29 08:48 | PM.PRESUREVA ---
History of Present Illness History of Present Illness Chief complaint: BLADDER TUMOR Narrative: Patient presents for preadmission testing. The patient states he has a history of bladder tumors, he was supposed to have surgery over six months ago, but he ended up having an and STEMI and had stents placed which required to wait six months for this procedure several he could hold his Plavix. The patient denies any urinary complaints at preadmission testing today. Review of Systems ROS Narrative REVIEW OF SYSTEMS: Negative except as stated in HPI, ten or more systems reviewed. Constitutional: No fever , chills, weakness ENT: No sore throat or epistaxis Cardiovascular: Chronic edema; no chest pain or palpitations; admits to some dyspnea with exertion Respiratory: No shortness of breath, cough, or wheezing Musculoskeletal: No joint pain or swelling Gastrointestinal: No abdominal pain, constipation, diarrhea, or vomiting Genitourinary: No dysuria or hematuria Neurological: No numbness, tingling, weakness, or headache Psychiatric: No mood changes [facility] Medical History (Updated 11/29/23 @ 08:37 by Emeli Burgos NP) Extremity edema ?R60.0 - Localized edema (ICD-10) Hydrocele ?N43.3 - Hydrocele, unspecified (ICD-10) Hypertension ?I10 - Essential (primary) hypertension (ICD-10) Bladder cancer ?C67.9 - Malignant neoplasm of bladder, unspecified (ICD-10) Bladder tumor ?D49.4 - Neoplasm of unspecified behavior of bladder (ICD-10) Atherosclerosis of [place] coronary artery ?I25.10 - Atherosclerotic heart disease of [place] coronary artery without angina pectoris (ICD-10) Small bowel obstruction ?K56.609 - Unspecified intestinal obstruction, unspecified as to partial versus complete obstruction (ICD-10) NSTEMI (non-ST elevated myocardial infarction) (~04/2023) ?I21.4 - Non-ST elevation (NSTEMI) myocardial infarction (ICD-10) Trigeminal neuralgia ?G50.0 - Trigeminal neuralgia (ICD-10) Osteoarthritis ?M19.90 - Unspecified osteoarthritis, unspecified site (ICD-10) Skin cancer ?C44.90 - Unspecified malignant neoplasm of skin, unspecified (ICD-10) Colon cancer ?C18.9 - Malignant neoplasm of colon, unspecified (ICD-10) High cholesterol ?E78.00 - Pure hypercholesterolemia, unspecified (ICD-10) PVD (peripheral vascular disease) ?I73.9 - Peripheral vascular disease, unspecified (ICD-10) BPH (benign prostatic hyperplasia) ?N40.0 - Benign prostatic hyperplasia without lower urinary tract symptoms (ICD-10) Chronic kidney disease ?N18.9 - Chronic kidney disease, unspecified (ICD-10) Surgical History (Updated 11/29/23 @ 08:37 by Emeli Burgos NP) History of hydrocelectomy ?Z98.890 - Other specified postprocedural states (ICD-10) H/O cardiac catheterization ?Z98.890 - Other specified postprocedural states (ICD-10) S/P arterial stent ?Z95.9 - Presence of cardiac and vascular implant and graft, unspecified (ICD-10) S/P cataract extraction and insertion of intraocular lens ?Z98.49 - Cataract extraction status, unspecified eye (ICD-10) ?Z96.1 - Presence of intraocular lens (ICD-10) History of colonoscopy ?Z98.890 - Other specified postprocedural states (ICD-10) S/P cystoscopy ?Z98.890 - Other specified postprocedural states (ICD-10) Family History (Updated 11/29/23 @ 08:37 by Emeli Burgos NP) Other Family history of DVT Family history of colon cancer Social History (Updated 11/29/23 @ 08:30 by Emeli Burgos NP) Within the past year, how often did you have a drink containing alcohol: monthly or less Smoking status: Former smoker Highest level of school completed/degree received: high school graduate Meds Home Medications and Allergies Home Medications Medication Instructions Recorded Confirmed Type tamsulosin 0.4 mg capsule 0.4 mg PO DAILY 04/22/23 11/29/23 History aspirin 81 mg tablet,delayed 81 mg PO DAILY 10/09/23 11/29/23 History release carvedilol 6.25 mg tablet 6.25 mg PO Q12H 10/09/23 11/29/23 History clopidogrel 75 mg tablet 75 mg PO DAILY 10/09/23 11/29/23 History rosuvastatin 40 mg tablet 40 mg PO DAILY 10/09/23 11/29/23 History potassium chloride 20 mEq 20 meq PO DAILY 02/09/24 02/09/24 History tablet,extended release(part/cryst) Allergies Allergy/AdvReac Type Severity Reaction Status Date / Time No Known Drug Allergies Allergy Verified 11/29/23 08:25 Exam Narrative Exam Narrative: Constitutional: Awake, alert, comfortable, well-appearing, nontoxic, interactive, vital signs as charted Head: Normocephalic, atraumatic Neck: Supple, normal appearance, normal range of motion, no meningeal signs, no lymphadenopathy Respiratory: No respiratory distress, breath sounds clear Cardiovascular: Regular rate and rhythm, strong and regular heart tones Abdomen: Nontender, normal bowel sounds, soft, no CVA tenderness Musculoskeletal: Normal gait Skin: No rashes or induration, no lesions, only visible skin inspected Neuro: No neurological deficits, normal sensation Psychiatric: Oriented ?3, normal affect Assessment and Plan Assessment and Plan (1) Bladder cancer: (2) Bladder tumor: Plan Cystoscopy, TURBT, bilateral ureteroscopy, possible urethral dilation with Mason sound scheduled with Dr. Julien 12/05/2023.
[2023-11-29 09:43] LABS: Basophils Percent Auto 0.6 % (0.2-2.0); Eosinophils Absolute Auto 0.6 10^3/uL (0.0-0.7); Eosinophils Percent Auto 8.7 % (0.9-7.0); Hematocrit 39.7 % (42.0-54.0); Hemoglobin 12.6 g/dL (14.0-18.0); Immature Granulocytes Abs Auto 0.02 10^3/uL (0.00-0.03); Immature Granulocytes Pct Auto 0.3 % (0.0-0.5); Lymphocytes Absolute Auto 1.4 10^3/uL (1.2-3.8); Lymphocytes Percent Auto 21.6 % (20.5-60.0); Mean Corpuscular HGB Conc 31.7 g/dL (29.9-35.2); Mean Corpuscular Hemoglobin 29.8 pg (25.9-34.0); Mean Corpuscular Volume 93.9 fL (80.0-94.0); Mean Platelet Volume 8.8 fL (9.5-13.5); Monocytes Absolute Auto 1.1 10^3/uL (0.3-0.8); Monocytes Percent Auto 16.1 % (1.7-12.0); Neutrophils Absolute Auto 3.5 10^3/uL (1.4-6.5); Neutrophils Percent Auto 52.7 % (43.0-75.0); Platelet Count 192 10^3/uL (150-450); Red Blood Count 4.23 10^6/uL (4.70-6.10); White Blood Count 6.6 10^3/uL (4.0-11.0)
[2023-11-29 09:44] LABS: Anion Gap 11.2; BUN Creatinine Ratio 29.8; Calcium 8.9 mg/dL (8.5-10.1); Carbon Dioxide 26.9 mmol/L (21.0-32.0); Chloride 105 mmol/L (98-107); Estimated GFR (African America >60 (>=60); Estimated GFR (Non-African Ame >60 (>=60); Glucose 97 mg/dL (74-106); Potassium 4.1 mmol/L (3.5-5.1); Sodium 139 mmol/L (136-145)
[2023-11-29 09:57] LABS: INR 1.04; Partial Thromboplastin Time 29.3 sec (22.3-36.2)
== END 2023-11-29 08:20 | disposition home or self-care (01) ==
LOC: PST 08:19
PROVIDERS: PCP Internal Medicine; Visit Provider Urology
DX: Z01.810 Encounter for preprocedural cardiovascular examination (principal); Z01.812 Encounter for preprocedural laboratory examination; Z85.51 Personal history of malignant neoplasm of bladder; Z01.818 Encounter for other preprocedural examination
CPT/HCPCS: 71046; 80048; 85025; 85610; 85730; 93005; G0463

== ENCOUNTER 2023-12-14 02:07 | Emergency (ER) | payer MEDICARE, SELFPAY ==
[2023-12-14 02:09] VITALS: BP 132/70; PULSE 63; RESP 18; TEMP 37.1; O2SAT 98; BMI 25.0
--- OUTSIDE RECORDS SUMMARY | 2023-12-14 02:14 | XMS_ITS | CCD ---
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 Name Role Phone ADRIEL RIOS Unavailable NESTOR Vela Unavailable ADRIEL Malik Unavailable NESTOR Vela Unavailable NESTOR Vela Primary Care Physician [phone] JIMMY ESTRELLA Primary Care Unavailable ALZTYLER GUYIL Referring Unavailable LUKE LAN Attending Unavailable HANG OHARA Referring Unavailable JIMMY ESTRELLA Primary Care Unavailable RAULITO CAMACHO Admitting Unavailable CONSULT, SURGERY - GENERAL (EMERGENT) Consulting Unavailable Reid Ann Unavailable Nestor Estrella Unavailable Nestor Estrella DO Primary Care Provider AVEL CAMACHO Referring Unavailable AVEL CAMACHO Attending Unavailable NESTOR ESTRELLA Primary Care Unavailable SAMEER, DR BAEZ Consulting Unavailable BALL, DR BAEZ Attending Unavailable SAMEER, DR BAEZ [...] Unavailable MD Peyton Norman Other Provider Lorna [facility] Misty Soriano Other Provider MD Endy Arevalo Other Provider MD Lucio Dillon Other Provider DO Ko Morgan Other Provider MIGUEL White Other Provider MD Hannah Abraham Other Provider [phone] Nestor Estrella Unavailable Unavailable Unavailable Dr. Adriel Morgan Attending Raegan Estrella, Dr. Nestor Lovelace [facility] Marcella Estrella, Dr. Nestor Lovelace [facility] Marcella Morgan, Dr. Adriel Pierre Referring Raegan Morgan, Dr. Adriel Pierre Attending Raegan Estrella, Dr. Nestor Lovelace [facility] Marcella Morgan, Dr. Adriel Pierre Attending Raegan Estrella, Dr. Nestor Lovelace [facility] Marcella weeks Asaad, Imad Unavailable Jimmy Estrella MD Primary Care Provider DO Nestor Estrella [...] White Consulting Unavailable Hannah Abraham Consulting Unavailable Nestor Estrella DO Primary Care Provider ADRIEL MORGAN Attending Unavailable NESTOR ESTRELLA Primary Care Unavailable DIETRICH, Kylie R Admitting Unavailable DIETRICH, Kylie R Referring Unavailable DIETRICH, Kylie R Attending Unavailable DIETRICH, [...] Kylie R Admitting Unavailable DIETRICH, Kylie R Referring Unavailable Allergies Allergy Classification Reported Allergen(s) Allergy Type Date of Onset Reaction(s) Facility (3 sources) Amoxicillin; Translations: [AMOXICILLIN] Drug Allergy 04-28-2013 Other: See Comments [facility] Medications Current Medications Medication Drug Class(es) Dates Sig (Normalized) Sig (Original) aspirin 81 mg chewable tablet (20 sources) Platelet Aggregation Inhibitor, Nonsteroidal Anti-inflammatory Drug Start: 11-20-2023 End: 11-19-2024 aspirin 81 mg chewable tablet Indications: Atherosclerosis of saxman coronary artery, unspecified whether angina present, unspecified whether saxman or transplanted heart , Stented coronary artery , Non-ST elevation myocardial infarction (NSTEMI) ([facility]) Chew 1 tablet (81 mg) once [...] Orally Once a day Not-Taking/PRN beta prostate (11 sources) Start: 09-01-2021 beta prostate beta prostate Start Date: 09/01/21 Status: Ordered calcium carbonate 1500 mg oral tablet (1 source) Start: 12-05-2023 take 1 tablet by mouth twice daily calcium (as carbonate) 600 mg oral tablet 600 mg = 1 tab(s), Oral, BID, Prophylaxis Start Date: 12/05/23 Status: Ordered carvedilol 6.25 mg oral tablet (20 sources) alpha-Adrenergi c Myra, beta-Adrenergic Myra Start: 12-05-2023 take 1 tablet by mouth twice daily carvedilol 6.25 mg Tab 6.25 mg = 1 tab(s), Oral, BID, Other (see comment) Start Date: 12/05/23 Status: Ordered Start: 05-02-2023 take 2 tablets by mo [facility] every twelve hours Carvedilol 6.25 MG 2 [...] tablet (20 sources) P2Y12 Platelet Inhibitor Start: 12-05-2023 take 1 tablet by mouth once daily clopidogrel 75 mg Tab 75 mg = 1 tab(s), Oral, Daily, Blood Thinner Start Date: 12/05/23 Status: Ordered Start: 05-23-2023 End: 10-10-2023 take 1 tablet [...] capsule (20 sources) take 1 capsule by [facility] every twenty-four hours Stool [...] PO Bedtime April 21, 2023 11:00pm losartan potassi um (LOSARTAN ORAL) Take by mouth once daily. 0 Active Comment on above: Take by mouth once d aily. nitroglycerin 0.4 mg sublingual tablet (2 sources) Nitrate Vasodilator Start: 04-22-20 Nitroglycerin Active 0.4 MG SUBLINGUAL Q5M April 21, 2023 11:00pm do not exceed 3 doses per episode tamsulosin hydrochloride 0.4 mg oral capsule (20 sources) alpha-Adrenergic Myra Start: 11-18-19 End: 10-10-20 23 take 1 capsule by mouth once daily [...] twice daily for 14 days Mar, Active triamcinolone acetonide 1 mg/ml topical cream [...] procedure, # 6 tab(s), Refills(s) 0, [id number], [facility], 09/01/21 10:42:00 EST, Height/Length Dosing, 78, kg, 09/01/21 10:42:00 EST, W... Start Date: 12/07/22 Status: Ordered Start: 10-26-2022 take 1 tablet by dianne th once daily Cipro 250 mg Tab 250 mg = 1 tab(s), Oral, Daily, Take 1 tablet the day before the procedure and 1 tablet after the procedure, # 2 tab(s), Refills(s) 0, [id number], cm, 09/01/21 10:42:00 EST, Height/Length Dosing, 78, kg, 09/01/21 10:42:00 EST, W... Start Date: 10/26/22 Status: Ordered Start: 03-01-2022 take 1 tablet by dianne th once daily Cipro 500 mg Tab 500 mg = 1 tab(s), Oral, Daily, Take 1 tablet the day before the procedure and 1 tablet after the procedure, # 2 tab(s), Refills(s) 0, [id number] 178, cm, 09/01/21 10:42:00 EST, Height/Length Dosing, 78, kg, 09/01/21 10:42:00 EST, W... Start Date: 03/01/22 Status: Ordered Start: 12-07-2021 take 1 tablet by dianne th once daily Cipro 500 mg Tab 500 mg = 1 tab(s), Oral, Daily, Take 1 tablet the day before procedure and 1 tablet after the procedure, # 2 tab(s), Refills(s) 0, Pharmacy: [id number], 178, cm, 09/01/21 10:42:00 EST, Height/Length [...] route three times daily as needed Ipratropium [place] 0.06 % 2 sprays in each nostril Nasally Three times a day Not-Taking/PRN take 2 spray(s) nasa l route three times daily Ipratropium [place] 0.06 % 2 sprays in e ach [...] 1 tablet Orally Once a day Not-Taking/PRN potassium chloride 20 meq extended release oral tablet (1 source) Start: 12-05-2023 take 1 tablet by mouth twice daily potassium chloride 20 mEq ER Tab 20 mEq = 1 tab(s), Oral, BID, Prophylaxis Start Date: 12/05/23 Status: Ordered Psyllium (20 sources) Psyllium Not-Taking/PRN Psyllium Not-Bobby ing Psyllium Active rosuvastatin calcium 10 mg oral tablet (18 sources) HMG-CoA Reductase Inhibitor Start: 10-10-2023 End: 10-10-2023 Rosuvastatin (CRESTOR) tablet 40 mg Start: 06-07-2023 take 1 tablet by dianne th every twenty-four hours Rosuvastatin Calcium 40 MG 1 tablet Orally Once a day for 30 days May, Active ticagrelor 90 mg oral tablet (8 sources) Start: 05-20-2023 take 1 tablet by mouth every twelve hours Brilinta (ticagrelor) 90 mg oral tablet 60 EA, TAKE 1 TABLET BY MOUTH EVERY 12 HOURS FOR 30 DAYS, Refills(s) 0 Start Date: 05/20/23 Status: Ordered Start: 04-22-2023 take 1 tablet by dianne th twice daily Ticagrelor (Brilinta) 90 mg Tablet Active 90 MG PO Twice daily 180 90 April 21, 2023 11:00pm vitamin b12 0.1 mg oral tablet (1 [...] Date Documented Date Episodic/Chronic Acute myocardial infarction (13 sources) Myocardial infarction; Translations: [Non-ST elevation (NSTEMI) myocardial infarction] Onset: 04-22-2004-22-2023 Chronic Allergic reactions (20 sources) Asteatotic eczema; [...] Translations: [Bradycardia, unspecified] Episodic Chronic kidney disease (12 sources) Chronic kidney disease; Translations: [Chronic kidney [...] [Coronary atherosclerosis of unspecified type of vessel, saxman or graft] Onset: 06-25-20 Chronic Coronary atherosclerosis [...] (20 sources) Hyperlipidemia; Translations: [Hyperlipidemia, unspecified] Onset: 01-10-20 23 03-28-2020 Chronic E Codes: Adverse effects of medical [...] 09-28-20 Chronic Genitourinary symptoms and ill-defined conditions (12 sources) Urinary incontinence; Translations: [Unspecified urinary incontinence] Onset: 11-05-19 23 03-28-2020 Chronic Genitourinary symptoms and ill-defined conditions (20 [...] as to partial versus complete obstruction] Onset: 09-30-2009-30-2019 Episodic Mycoses (2 sources) Tinea pedis Episodic Neoplasms of unspecified nature or uncertain behavior (11 sources) Neoplasm of bladder 04-27-2020 Episodic Open wounds of extremities (4 sources) Laceration without foreign body of right hand, initial encounter; Translations: [LACERATION W/O FB RT HAND INITIAL] Onset: 01-19-20 Episodic Osteoarthritis (12 sources) Osteoarthritis of right hip joint; Translations: [Unspecified osteoarthritis, unspecified site] Onset: 01-10-2003-28-2020 Chronic Other aftercare (2 sources) Other intermediate (current) drug therapy; Translations: [OTH 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] Onset: 01-23-20 Episodic Other [...] Episodic Other diseases of kidney and ureters (11 sources) Cyst of kidney 03-28-2020 Episodic Other diseases of veins and lymphatics (20 sources) Peripheral venous insufficiency; Translations: [Venous insufficiency (chronic) (peripheral)] 03-28-2020 Episodic Other diseases of veins and lymphatics (6 sources) Venous insufficiency (chronic) (peripheral); Translations: [VENOUS INSUFF CHRONIC PERIPHERAL] Onset: 01-10-20 Episodic Other gastrointestinal disorders (11 sources) H/O: ulcerative colitis 03-28-2020 Episodic Other [...] [Constipation, unspecified] Episodic Other male genital disorders (16 sources) Disorder of male genital organ; Translations: [Hydrocele] 03-28-2020 Episodic Other male genital disorders (20 sources) Hydrocele; Translations: [Hydrocele, unspecified] 10-03-2010 Episodic Other male genital disorders (2 sources) Hydrocele, unspecified; Translations: [Hydrocele, left] Episodic Other nervous system disorders (20 sources) Carpal tunnel syndrome; Translations: [Carpal tunnel syndrome, right upper limb] Chronic Other nervous system disorders (11 sources) Trigeminal neuralgia 03-28-2020 Episodic Other non-traumatic joint disorders (11 sources) Hip pain 03-28-2020 Episodic Other nutritional; [...] health status] Onset: 11-20-19 24 11-20-2023 Episodic Residual codes; unclassified (2 sources) Other specified health status; Translations: [Other specified health status] Onset: 11-20-19 Episodic Skin and subcutaneous tissue infections (2 sources) Carbuncle of buttock; Translations: [Pilonidal cyst without abscess] Episodic Spondylosis; intervertebral disc disorders; other back problems (20 sources) Lumbar spondylosis; Translations: [Inflammation of sacroiliac joint] Onset: 01-10-20 23 03-28-2020 Chronic Unclassified (11 sources) Asymptomatic microscopic hematuria 12-26-2020 Unclassified (11 sources) Body mass index 20-24 - normal 04-26-2020 Unclassified (2 sources) CONTACT W/AND (SUSP) EXPOS COVID-19; Translations: [CONTACT W/AND (SUSP) EXPOS COVID-19] Onset: 04-10-20 22 Unclassified (1 source) Postprocedural intestinal obstruction, unspecified as to partial versus complete; Translations: [Postprocedural intestinal obstruction, unspecified as to partial versus complete] Onset: 10-23-19 Urinary tract infections (13 sources) Urinary tract infectious disease; Translations: [Urinary [...] colon ca resection( Confirmed ) 10-03-2010 Unclassified (6 sources) colon ca resection 10-03-2010 Unclassified (1 source) CONTACT W/AND (SUSP) EXPOS COVID-19; Translations: [CONTACT W/AND (SUSP) EXPOS COVID-19] Onset: 04-06-2022 Unclassified (4 sources) Never smoked tobacco; Translations: [Never a smoker] Unclassified (1 source) Onset: 11-20-2023 11-20-2023 Results Test Name Value Interpretation Reference Range Facility IntraOperative Documentson 0 12-11-2023 IntraOperative Documents [id number] 7#1.00TIFF [facility] Postoperative Documentson Postoperative Documents [id number] 19#1.00TIFF [facility] Consent for Anesthesiaon Consent for Anesthesia [id number] 5#1.00TIFF [facility] Consultation Noteon 02-16-20 24 Consultation Note [id number] #1.00TIFF [facility] Discharge Instructionson Discharge Instructions [id number] 7#1.00TIFF [facility] IntraOperative Documentson 0 12-06-2023 IntraOperative Documents [id number] 9#1.00TIFF [facility] Main OR Intraoperative Recor don 12-06-2023 Main OR Intraoperative Record IntraOp Document Type FT Summary Primary Physician: Kylie DIETRICH MD Finalized Date/Time: 12/06/23 11:15:59 Pt. Name: KENNEDY KONG /Sex: 1935 Male Med Rec #: [id number] Physician: Kylie DIETRICH MD Financial #: [id number] Pt. Type: A Room/Bed: [place] [address] Admit/Disch: 12/05/23 10:01:50 - 12/05/23 15:00:00 Institution: Case Times FT Entry 1 Patient Times In Room 12/05/23 11:33:00 Out Room 12/05/23 12:46:00 Procedure Times Start 12/05/23 11:51:00 Stop 12/05/23 12:40:00 Anesthesia Times Start 12/05/23 11:33:00 Stop 12/05/23 12:46:00 Last Modified By: Shar Montanez Ii 12/05/23 12:50:40 General Comments: 12/06/23 Chart opened to review and send charges LRoth CSFA Case Attendance FT Entry 1 Entry 2 Entry 3 Case Attendee Mitliz DNP, BISTRO ATTENDANT, Queen KARLO CHOI, Shar Reyes Ii Role Performed BISTRO ATTENDANT Surgeon - Primary Automation Specialist - Primary Time In 12/05/23 11:33:00 12/05/23 11:33:00 12/05/23 11:33:00 Time Out 12/05/23 12:46:00 12/05/23 12:46:00 12/05/23 12:46:00 Procedure CYSTOSCOPY CYSTOSCOPY CYSTOSCOPY TURB(Bilateral), TURB(Bilateral), TURB(Bilateral), CYSTOSCOPY CYSTOSCOPY CYSTOSCOPY URETEROSCOPY(Bilater al), URETEROSCOPY(Bilater al), URETEROSCOPY(Bilater al), CYSTOSCOPY URETHRAL CYSTOSCOPY URETHRAL CYSTOSCOPY URETHRAL DILATATION(Bilateral ) DILATATION(Bilateral ) DILATATION(Bilateral ) Comments dr mart supervising out of room for lunch [id number] Last Modified By: Shar Montanez Ii, Alfons Ii F Letrondo, Alfons Ii Luis M 12/05/23 12:51:32 12/05/23 12:51:32 12/05/23 12:51:32 Entry 4 Entry 5 Entry 6 Case Attendee [employer] OPERATIONS MANAGEMENT TRAINEE, Jaswinder Munoz RN, Lashaun Munoz OPERATIONS MANAGEMENT TRAINEE, Chrystal Keene Role Performed Scrub - Primary Automation Specialist - Relief Scrub - Relief Time In 12/05/23 11:33:00 12/05/23 11:40:00 12/05/23 11:50:00 Time Out 12/05/23 12:46:00 12/05/23 12:30:00 12/05/23 12:25:00 Procedure CYSTOSCOPY CYSTOSCOPY CYSTOSCOPY TURB(Bilateral), TURB(Bilateral), TURB(Bilateral), CYSTOSCOPY CYSTOSCOPY CYSTOSCOPY URETEROSCOPY(Bilater al), URETEROSCOPY(Bilater al), URETEROSCOPY(Bilater al), CYSTOSCOPY URETHRAL CYSTOSCOPY URETHRAL CYSTOSCOPY URETHRAL DILATATION(Bilateral ) DILATATION(Bilateral ) DILATATION(Bilateral ) Comments out of room for lunch [id number] Last Modified By: Shar Montanez Ii, Alfons Ii F Letrondo, Alfons Ii Luis M 12/05/23 12:51:32 12/05/23 12:51:32 12/05/23 12:51:32 Perioperative Protocols FT Pre-Care Text: Implements protective measures prior to operative or invasive procedure, confirms identity before the operative or invasive procedure, verifies operative procedure, surgical site, and laterality Entry 1 Procedure(s) CYSTOSCOPY Patient Identity Birthday, ID Band TURB(Bilateral), Verified (select at Check, Patient CYSTOSCOPY least 2): Participation URETEROSCOPY(Bilater al), CYSTOSCOPY URETHRAL DILATATION(Bilateral ) Consents / H and P Anesthesia Consent, Operative Site N/A Verified HandP, Surgery/Procedure Marking Verified Consent Surgical Site Yes Laterality Verified n/a Verified Procedure Verified Yes Correct Patient Yes Position Verified Availability Equipment, Medication Prep Dry n/a Verified (If Applicable) PreOp Antibiotic Yes Time Out Ori DNP, BISTRO ATTENDANT, Queen Ashley Mena, KARLO CHOI, Lisseth Carrera Alfons Ii F, Jaswinder Sanz CST, Crosby RN, Lashaun Em Time Out Complete 12/05/23 11:50:00 Outcomes Met? Yes Last Modified By: Shar Montanez Ii 12/05/23 12:14:43 Post-Care Text: The patient is free from signs and symptoms of injury caused by extraneous objects Allergy Information FT Pre-Care Text: Verifies allergies Entry 1 Allergies Reviewed? Yes Allergies Reviewed Self/Patient With Outcomes Met? Yes Last Modified By: Shar Montanez Ii 12/05/23 12:00:52 Post-Care Text: The patient received appropriate medication(s) safely administered during the perioperative period Surgical Procedures FT Entry 1 Entry 2 Entry 3 Procedure Description Procedure CYSTOSCOPY TURB CYSTOSCOPY URETEROSCOPY CYSTOSCOPY URETHRAL DILATATION Modifiers Bilateral Bilateral Bilateral Surgeon Description CYSTO, TURBT, CYSTO, TURBT, CYSTO, TURBT, URETERSCOPY, URETHERAL URETERSCOPY, URETHERAL URETERSCOPY, UD, DILATATION WITH OCHOA DILATATION WITH OCHOA OCHOA SOUNDS SOUNDS SOUNDS Primary Procedure Yes No No Primary Surgeon KARLO CHOI, Kylie DIETRICH MD, Kylie DIETRICH MD, Kylie Serrano 12/05/23 11:51:00 12/05/23 11:51:00 12/05/23 11:51:00 Stop 12/05/23 12:40:00 12/05/23 12:40:00 12/05/23 12:40:00 Anesthesia Type General General General Surgical Service Urology Urology Urology Wound Class 2 - Clean-Contaminated 2 - Clean-Contaminated 2 - Clean-Contaminated Last Modified By: Shar Montanez Ii, Alfons Ii F Letrondo, Alfons Ii F 12/05/23 12:52:00 12/05/23 12:52:05 12/05/23 12:52:00 General Case Data FT Pre-Care Text: Classifies surgic (more content not included)... [facility] Physician Orderon 12-06-2023 Physician Order [id number] 7#1.00TIFF [facility] Preoperative Documentson Preoperative Documents [id number] 4#1.00TIFF [facility] Progress Note-Physicianon Progress Note-Physician Patient: KENNEDY KONG Age: 88 years Sex: Male : 1935 Associated Diagnoses: None Author: Maksim Mart Jr, DO Preoperative Information Anesthesia Preop Info: Time patient last ate or drank 12/05/2023 00:00:00. Anesthesia history: Patient history: None. Family history+: None. Informed consent: Signed by patient. Re-evaluation prior to induction: Initial evaluation reviewed: No significant change. Review of Systems Eye: Negative except as documented in history of present illness. Ear/Nose/Mouth/Throa t: Negative except as documented in history of present illness. Respiratory: Negative except as documented in history of present illness. Cardiovascular: Negative except as documented in history of present illness. Musculoskeletal: Negative except as documented in history of present illness. Neurologic: Negative except as documented in history of present illness. Health Status Allergies: Allergic Reactions (Selected) No Known Allergies Problem list: All Problems UTI (urinary tract infection) / SNOMED CT 770835601 / Confirmed Urinary incontinence / SNOMED CT 1917210954 / Confirmed Trigeminal neuralgia of right side of face / SNOMED CT 53496407 / Confirmed Chronic venous insufficiency / SNOMED CT 54065675 / Confirmed Osteoarthritis of right hip / SNOMED CT 4507157257 / Confirmed Bladder tumor / SNOMED CT 073179 / Confirmed Myocardial infarct / SNOMED CT 10863805 / Confirmed Bladder cancer / SNOMED CT 2235252717 / Confirmed Lumbar spondylosis / SNOMED CT 218682846 / Confirmed Hyperlipidemia / SNOMED CT 77655350 / Confirmed Right hip pain / SNOMED CT 73258189 / Confirmed History of ulcerative colitis / SNOMED CT 180524071 / Confirmed Gross hematuria / SNOMED CT 367159497 / Confirmed Hydrocele / SNOMED CT 8695780824 / Confirmed Renal cyst / SNOMED CT 6646781047 / Confirmed Coronary artery disease / SNOMED CT 79439984 / Confirmed Chronic kidney disease / SNOMED CT 1325427659 / Confirmed Recurrent bladder papillary carcinoma / SNOMED 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 TURBT - with left ureteroscopy and left stent placement ([id number]) on 05/26/2020 at 84 Years. Hydrocelectomy ([id number]) in 2001 at 67 Years. colon resection. colonoscopy. Cataract ([id number]). Comments: 10/17/2010 12:31 EST - Martha Mazariegos left Cardiac catheterization with stent ([id number]). Social History Social & Psychosocial Habits Alcohol 10/03/2010 Risk Assessment: Denies Alcohol Use Substance Abuse 10/03/2010 Risk Assessment: Denies Substance Abuse Tobacco 10/03/2010 Risk Assessment: Denies Tobacco Use 06/13/2020 Tobacco Use: Never (less than 100 in l 08/29/2020 Tobacco Use: Never (less than 100 in l Smokeless tobacco use: Never 09/01/2021 Tobacco Use: Never (less than 100 in l . Physical Examination Airway: Mallampati classification: II (soft palate, fauces, uvula visible). Respiratory: adequate air exchange. Cardiovascular: Regular rhythm. Plan [place] [employer] (ASA) physical status classification: Class III. Anesthetic Preoperative Plan: Anesthesia General. [facility] Comment on above: Result Comment: Elec tronically Signed By: Maksim Mart Jr, DO\.br\Date and Time Signed: 12/06/23 15:53 EST Progress Note-Physician Patient: KENNEDY KONG Age: 88 years Sex: Male : 1935 Associated Diagnoses: None Author: Maksim Mart Jr, DO Postoperative Information Postoperative disposition: Postoperative disposition: To PACU. Optimetrix number: Optimetrix number [id number]. Anesthetic utilized: General. Health Status Allergies: Allergic Reactions (Selected) No Known Allergies Physical Examination Vital Signs 12/05/2023 14:30 EST Heart Rate Monitored 80 bpm Respiratory Rate Monitored 12 br/min Systolic Blood Pressure 148 mmHg HI Diastolic Blood Pressure 78 mmHg SpO2 96 % 12/05/2023 13:21 EST Heart Rate Monitored 73 bpm SpO2 95 % 12/05/2023 13:21 EST Systolic Blood Pressure 151 mmHg HI Diastolic Blood Pressure 80 mmHg Mean Arterial Pressure, Monitered 104 mmHg 12/05/2023 13:15 EST Temperature Temporal Artery 36.4 DegC Heart Rate Monitored 73 bpm Respiratory Rate Monitored 9 br/min Systolic Blood Pressure 114 mmHg Diastolic Blood Pressure 99 mmHg HI Mean Arterial Pressure, Cuff 104 mmHg SpO2 97 % 12/05/2023 13:00 EST Heart Rate Monitored 73 bpm Respiratory Rate Monitored 12 br/min Systolic Blood Pressure 117 mmHg Diastolic Blood Pressure 67 mmHg Mean Arterial Pressure, Cuff 84 mmHg SpO2 98 % 12/05/2023 12:55 EST Heart Rate Monitored 74 bpm Respiratory Rate Monitored 13 br/min Systolic Blood Pressure 121 mmHg Diastolic Blood Pressure 68 mmHg Mean Arterial Pressure, Cuff 86 mmHg SpO2 98 % 12/05/2023 12:50 EST Heart Rate Monitored 75 bpm Respiratory Rate Monitored 11 br/min Systolic Blood Pressure 122 mmHg Diastolic Blood Pressure 70 mmHg Mean Arterial Pressure, Cuff 87 mmHg SpO2 100 % 12/05/2023 12:47 EST Temperature Temporal Artery 36.3 DegC Heart Rate Monitored 75 bpm Respiratory Rate Monitored 12 br/min Systolic Blood Pressure 125 mmHg Diastolic Blood Pressure 72 mmHg Mean Arterial Pressure, Cuff 90 mmHg SpO2 100 % Pain Assessment: Controlled. General: Awake, Alert, Appropriate. Respiratory: Adequate air exchange. Cardiovascular: Stable, Normal peripheral perfusion. Neurological: Normal sensory function, Normal motor function. Assessment Anesthetic outcome No anesthetic complications noted. Adequate pain relief. able to void without difficulty, able to ambulate with assist, tolerating PO intake, no N/V. Review / Management Condition: Stable. Plan Transfer/Discharge: Transfer/Discharge Discharge when meets criteria ( To home ). [facility] Comment on above: Result Comment: Elec tronically Signed By: Maksim Mart Jr, DO\.br\Date and Time Signed: 12/06/23 15:51 EST Consent for Procedure/Surger yon 12-05-2023 Consent for Procedure/Surgery [id number] 6#1.00TIFF [facility] Consent for Treatmenton 11-21 Consent for Treatment [id number] #1.00TIFF [facility] Discharge Instructionson Discharge Instructions KENNEDY KONG :1935 Visit Date:12/05/2023 Inpatient Discharge Instructions Your Care Team Admitting Physician - Kylie DIETRICH MD Referring Physician - Kylie DIETRICH MD Reason for Your Visit PER RANJEET Procedure History Endoscopic destruction of bladder tumor by laser (12/13/2020), TURBT - Transurethral resection of bladder tumor (05/26/2020), Hydrocelectomy (2001), Cardiac catheterization, Cataract, colon resection, colonoscopy. What to do next Instructions From Your Doctor Event Name Event Result Discharge Activity Expect mild pain, Do not lift more than 5 lbs Discharge Restrictions No driving for 24 hrs, Do not make important decisions for 24 hours Discharge Diet(s) Regular Call Your Doctor For Persistent or heavy bleeding, Temperature above 101.5 degrees Pharmacy Information [facility] Discharge Instructions Discharge Instructions Previously Scheduled Follow-Up Appointments Saturday 9:00 AM EST With: Where: [facility] Normal [address] [place] [address]- \.br\ Medications\.b r\ What How Much When Instructions Next Dose\.br\ Unchanged aspirin (aspirin 81 mg Oral EC Tab) Oral \.br\ Unchanged calcium carbonate (calcium (as carbonate) 600 mg oral tablet) 1 Tablets By Mouth 2 times a day\.br\ Unchanged carvedilol (carvedilol 6.25 mg Tab) 1 Tablets By Mouth 2 times a day\.br\ Unchanged clopidogrel (clopidogrel 75 mg Tab) 1 Tablets By Mouth Every day\.br\ Unchanged Non-Formulary Medication (beta prostate)\.br\ Unchanged potassium chloride (potassium chloride 20 mEq ER Tab) 1 Tablets By Mouth 2 times a day\.br\ Unchanged tamsulosin (Flomax 0.4 mg Cap) 1 Capsules By Mouth Every day\.br\ Unchanged ticagrelor (Brilinta (ticagrelor) 90 mg oral tablet) 60 EA, TAKE 1 TABLET BY MOUTH EVERY 12 HOURS FOR 30 DAYS \.br\ Education Materials\.br\ Transurethral Resection of Bladder Tumor\.br\ \.br\ Transurethral resection of a bladder tumor is the removal (resection) of cancerous tissue (tumor) from the inside wall of the bladder. The bladder is the organ that holds urine. The tumor is removed through the tube that carries urine out of the body (urethra).\.br \ In a transurethral resection, a thin telescope with a light, a tiny camera, and an electric cutting edge (resectoscope) is passed through the urethra. In men, the opening of the urethra is at the end of the penis. In women, it is just above the opening of the vagina.\.br\ Tell a health care provider about:\.br\ ? \.br\ Any allergies you have.\.br\ ? \.br\ All medicines you are taking, including vitamins, herbs, eye drops, creams, and tpvw-xqz-ysnqg er medicines.\.br \ ? \.br\ Any problems you or family members have had with anesthetic medicines.\.br \ ? \.br\ Any bleeding problems you have.\.br\ ? \.br\ Any surgeries you have had.\.br\ ? \.br\ Any medical conditions you have, including recent urinary tract infections.\.b r\ ? \.br\ Whether you are or may be .\.br\ What are the risks?\.br\ Generally, this is a safe procedure. However, problems may occur, including:\.br \ ? \.br\ Infection.\.br \ ? \.br\ Bleeding.\.br\ ? \.br\ Allergic reactions to medicines.\.br \ ? \.br\ Damage to nearby structures or organs.\.br\ ? \.br\ Difficulty urinating from blockage of the urethra or not being able to urinate (urinary retention).\.b r\ ? \.br\ Deep vein thrombosis. This is a blood clot that can develop in your leg.\.br\ ? \.br\ Recurring cancer.\.br\ What happens before the procedure?\.br \ When to stop eating and drinking\.br\ Follow instructions from your health care provider about what you may eat and drink before your procedure. These may include:\.br\ ? \.br\ 8 hours before your procedure\.br\ ? \.br\ Stop eating most foods. Do not eat meat, fried foods, or fatty foods.\.br\ ? \.br\ Eat only light foods, such as toast or crackers.\.br\ ? \.br\ All liquids are okay except energy drinks and alcohol.\.br\ ? \.br\ 6 hours before your procedure\.br\ ? \.br\ Stop eating.\.br\ ? \.br\ Drink only clear liquids, such as water, clear fruit juice, black coffee, plain tea, and sports drinks.\.br\ ? \.br\ Do not drink energy drinks or alcohol.\.br\ ? \.br\ 2 hours before your procedure\.br\ ? \.br\ Stop drinking all liquids.\.br\ ? \.br\ You may be allowed to take medicines with small sips of water.\.br\ Medicines\.br\ Ask your health care provider about:\.br\ ? \.br\ Changing or stopping your regular medicines. This is especially important if you are taking diabetes medicines or blood thinners.\.br\ ? \.br\ Taking medicines such as aspirin and ibuprofen. These medicines can thin your blood. Do not take these medicines unless your health care provider tells you to take them.\.br\ ? \.br\ Taking pnql-qmh-jbkha er medicines, vitamins, herbs, and supplements.\. br\ General instructions\. br\ ? \.br\ If you will be going home right after the procedure, plan to have a responsible adult:\.br\ ? \.br\ Take you home from the hospital or clinic. You will not be allowed to drive.\.br\ ? \.br\ Care for you for the time you are told.\.br\ ? \.br\ Ask your health care provider what steps will be taken to help prevent infection. These steps may include:\.br\ ? \.br\ Washing skin with a germ-killing soap.\.br\ ? \.br\ Taking antibiotic medicine.\.br\ ? \.br\ Do not use any products that contain nicotine or tobacco for at least 4 weeks before the procedure. These products include cigarettes, chewing tobacco, and vaping devices, such as e-cigarettes. If you need help quitting, ask your health care provider.\.br\ What happens during the procedure?\.br \ ? \.br\ An IV will be inserted into one of your veins.\.br\ ? \.br\ You will be given one or more of the following:\.br \ ? \.br\ A medicine to help you relax (sedative).\.b r\ ? \.br\ A medicine that is injected into your spine to numb the area below and slightly above the injection site (spinal anesthetic).\. br\ ? \.br\ A medicine that is injected into an area of your body to numb everything below the injection site (regional anesthetic).\. br\ ? \.br\ A medicine to make you fall asleep (general anesthetic).\. br\ ? \.br\ Your legs will be placed in foot rests (stirrups) to open your legs and bend your knees.\.br\ ? \.br\ The resectoscope will be passed through your urethra and into your bladder.\.br\ ? \.br\ The part of your bladder with the tumor will be resected by the cutting edge of the resectoscope.\ .br\ ? \.br\ Fluid will be passed to rinse out the cut tissues (irrigation).\ .br\ ? \.br\ The resectoscope will then be taken out.\.br\ ? \.br\ A small, thin tube (catheter) will be passed through your urethra and into your bladder. The catheter will drain urine into a bag outside of your body.\.br\ The procedure may vary among health care providers and hospitals.\.br \ What happens after the procedure?\.br \ ? \.br\ Your blood pressure, heart rate, breathing rate, and blood oxygen level will be monitored until you leave the hospital or clinic.\.br\ ? \.br\ You may continue to receive fluids and medicines through an IV.\.br\ ? \.br\ You will be given pain medicine to relieve pain.\.br\ ? \.br\ You will have a catheter to drain your urine.\.br\ ? \.br\ The amount of urine will be measured. If you have blood in your urine, your bladder may be rinsed out by passing fluid through your catheter.\.br\ ? \.br\ You will be encouraged to walk as soon as you can.\.br\ ? \.br\ You may have to wear compression stockings. These stockings help to prevent blood clots and reduce swelling in your legs.\.br\ ? \.br\ If you were given a sedative during the procedure, it can affect you for several hours. Do not drive or operate machinery until your health care provider says that it is safe.\.br\ Summary\.br\ ? \.br\ Transurethral resection of a bladder tumor is the removal (resection) of a cancerous growth (tumor) on the inside wall of the bladder.\.br\ ? \.br\ To do this procedure, your health care provider uses a thin telescope with a light, a tiny camera, and an electric cutting edge (resectoscope) that is guided to your bladder through your urethra. The part of your bladder that is affected by the tumor will be resected by the cutting edge of the resectoscope.\ .br\ ? \.br\ [facility] Comment on above: Result Comment: Elec tronically Signed By: Jamel ANDERSON, Benedicto Cortez\.br\Date and Time Signed: 12/05/23 13:38 EST H&P Updateon 12-05-2023 H&P Update [id number] 0#1.00TIFF [facility] Main OR PACU I Recordon 11-21 Main OR PACU I Record PACU Phase I Document Type FT Summary Primary Physician: Kylie DIETRICH MD Finalized Date/Time: 12/05/23 13:31:22 Pt. Name: KENNEDY KONG /Sex: 1935 Male Med Rec #: [id number] Physician: Kylie DIETRICH MD Financial #: [id number] Pt. Type: A Room/Bed: AS13/ Admit/Disch: 12/05/23 10:01:50 - Institution: Case Times PACU I FT Pre-Care Text: Identifies barriers to communication and implements measures to provide psychological support Develops individualized plan of care, and ensures continuity of care Maintains patient's dignity and privacy, and maintains patient confidentiality Identifies and reports philosophical, cultural, and spiritual beliefs and values Identifies individual values and wishes concerning care Implements aseptic technique, and administers prescribed antibiotic therapy and immunizing agents as ordered Evaluates postoperative tissue perfusion Implements thermoregulation measures, and monitors body temperature Evaluates postoperative respiratory status Evaluates postoperative cardiac status Evaluates postoperative neurological status Assesses pain control, collaborated in initiating patient-controlled analgesia and implements alternative methods of pain control Verifies allergies, administers prescribed medications and solutions, evaluates response to medications Entry 1 In PACU I 12/05/23 12:47:00 Discharge from PACU 12/05/23 13:17:00 I Outcomes Met? Yes Last Modified By: Lexi Donnelly RN 12/05/23 13:31:09 Post-Care Text: The patient demonstrates knowledge of the expected response to the operative or invasive procedure The patient's care is consistent with the individualized perioperative plan of care The patient's right to privacy is maintained The patient's value system, lifestyle, ethnicity, and culture are considered, respected, and incorporated into the perioperative plan of care The patient participates in decisions affecting his or her perioperative plan of care The patient is free from signs and symptoms of infection The patient has wound/tissue perfusion consistent with or improved from baseline levels established preoperatively The patient is at or returning to normothermia at the conclusion of the immediate postoperative period The patient's respiratory function is consistent with or improved from baseline levels established preoperatively The patient's cardiovascular status is consistent with or improved from baseline levels established preoperatively The patient's cardiovascular status is consistent with or improved from baseline levels established preoperatively The patient demonstrates and/or reports adequate pain control throughout the perioperative period The patient received appropriate medication(s), safely administered during the perioperative period Acuity Level PACU I FT Entry 1 Start Time 12/05/23 12:47:00 Stop Time 12/05/23 13:17:00 Acuity Level Acuity Level I Last Modified By: Lexi Donnelly RN 12/05/23 13:31:19 Finalized By: Lexi Donnelly RN Document Signatures Signed By: Lexi Donnelly RN 12/05/23 13:31 [facility] Main OR Preoperative Recordo n 12-05-2023 Main OR Preoperative Record PreOp Document Type FT Summary Primary Physician: Kylie DIETRICH MD Finalized Date/Time: 12/05/23 11:52:12 Pt. Name: KENNEDY KONG /Sex: 1935 Male Med Rec #: [id number] Physician: Kylie DIETRICH MD Financial #: [id number] Pt. Type: A Room/Bed: [facility]/ Admit/Disch: 12/05/23 10:01:50 - Institution: Case Times PreOp FT Pre-Care Text: Verifies consent for planned procedure, identifies individual values and wishes concerning care, includes family members in perioperative teaching Entry 1 Patient Times. In Pre Surgery 12/05/23 10:05:00 Out Pre Surgery 12/05/23 11:31:00 Outcomes Met? Yes Last Modified By: Shar Montanez Ii 12/05/23 11:52:09 Post-Care Text: The patient participates in decisions affecting his or her perioperative plan of care Finalized By: Shar Montanez Ii Document Signatures Signed By: Shar Montanez Ii 12/05/23 11:52 [facility] Monitor Recordon 12-05-2023 Monitor Record [id number] 0#1.00TIFF [facility] Monitor Record [id number] 3#1.00TIFF [facility] Operative Reporton Operative Report Patient: KENNEDY KONG Age: 88 years Sex: Male : 1935 Associated Diagnoses: None Author: Kylie DIETRICH MD Postoperative Information Procedure: 1. Cystoscopy. 2. Urethral dilation with Ochoa sounds to 30 Iraqi. 3. Transurethral resection of bladder tumor approximately 4 cm. Date/ Time: 12/05/2023 12:49:00 Preoperative Diagnosis: Recurrent bladder tumors.. Postoperative Diagnosis: same. Procedure: Anesthesia Method: General. Performed by: Kylie Dietrich MD. Findings: Necrotic invasive appearing bladder tumor over the right UO going to the bladder neck and near the anterior bladder neck., Unable to get access up the right ureter.. Specimens Removed: Bladder tumor. Prosthesis: 22 Iraqi Saldaña catheter. . Estimated Blood Loss: 5 ml. Orders Complications: None. 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 He has had a recurrence of lower grade tumor. On surveillance cystoscopy about 6 to 7 months ago we found recurrence over the area of the right ureter going up the bladder neck. We were unable to resect his tumor due to cardiac stent placement with blood thinner requirements. He now presents for cystoscopy and transurethral resection of bladder tumors with possible ureteroscopy and right stent. He has signed an informed consent after all risks were explained. Procedure: The patient was brought to the operating room and placed on the operating room table in the supine position. SCDs were placed on his lower extremities and turned on and functioning during the entire case. Timeout was done by all parties in the room. We all agreed upon the patient's identification and the planned procedures for this patient. General endotracheal anesthesia was then administered with paralysis. He was then repositioned into the modified dorsal lithotomy position. All pressure points were satisfactorily padded. Genitalia were sterilely prepped and draped in the usual fashion. 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 I then passed a Glidewire through the scope and then through the lumen of the stricture and into the bladder. I then removed the scope. I then used Ochoa sounds and dilated him from 20 Iraqi up to 30 Iraqi. I then was able to pass the cystoscope into the bladder without difficulty. Panendoscopy in the bladder revealed the previously noted tumor along the floor over the right hemitrigone and up to the bladder neck invading anteriorly on the bladder neck. No other tumors were seen. I was unable to see a right ureter. I then removed the cystoscope. I then passed a 26 Iraqi Olympus resectoscope with the standard bipolar loop electrode into the bladder. I then began uniformly and deeply resecting this tumor. It appeared very ominous. There was necrosis involved. It seemed to invade deep into the wall. I never was able to identify the ureter with reliability. I may have resected over it but this is uncertain. Once all the tumor was resected I then used the Ilich evacuator to get all the pieces out. These were sent for permanent sections. The resection bed was fully coagulated. Upon completion there was no evidence of bleeding or tumor remaining within the bladder. I then passed a Glidewire through the sheath into the bladder and removed the resectoscope. I then passed a 22 Iraqi Saldaña catheter over the wire into the bladder. The wire was removed and 15 cc of fluid was placed in the balloon. It drained clear. The anesthetic was then reversed. He was then transferred to a gurney bed and wheeled to PACU in stable condition.. [facility] Comment on above: Result Comment: Elec tronically Signed By: KARLO CHOI, Kylie Restrepo\.br\Date and Time Signed: 12/05/23 12:56 EST Outside Recordson 12-05-2023 Outside Records [id number] 2#1.00TIFF [facility] Patient Education - Texton 0 12-05-2023 Patient Education - Text Saldaña Catheter Care, Male A Saldaña catheter is a soft, flexible tube that is placed into the bladder to drain urine. The catheter has a balloon to hold it inside the bladder. A Saldaña catheter may be inserted if: ? You leak urine or are not able to control when you urinate (urinary incontinence). ? You are not able to urinate when you need to (urinary retention). ? You had prostate surgery or surgery on the genitals. ? You have certain medical conditions, such as multiple sclerosis, dementia, or a spinal cord injury. To Prevent Infection: 1. Wash your hands with soap and water before and after handling your catheter. 2. Using mild soap and warm water on a clean washcloth; twice a day. ? Clean the area on your body closest to the catheter insertion site using a circular motion, moving away from the catheter. Never wipe toward the catheter because this could sweep bacteria up into the urethra and cause infection. ? Remove all traces of soap. Pat the area dry with a clean towel and reposition the foreskin. No tub baths. No lotions, powders, or sprays unless directed by your physician. 3. Keep the tube secure. Do not let the tube pull or catch when you are moving around. ? Attach the catheter to your leg so there is no tension on the catheter. Use adhesive tape or a leg strap. If you are using adhesive tape, remove any sticky residue left behind by the previous tape you used. 4. Replace wet leg straps with dry ones. 5. Wear cotton underwear to absorb moisture and keep sizing machine and drier operator. 6. Keep the drainage bag below the level of the bladder, but keep it off the floor. 7. Check throughout the day to be sure the catheter is working and urine is draining freely. Make sure the tubing does not become kinked or looped. 8. Do not pull on the catheter or try to remove it. Pulling could damage internal tissues. TAKING CARE OF THE DRAINAGE BAGS You will be given two drainage bags to take home. One is a large overnight drainage bag, and the other is a smaller leg bag that fits underneath clothing. You may wear the overnight bag at any time, but you should never wear the smaller leg bag at night, unless directed by your physician. Follow the instructions below for how to empty and change your drainage bags. Emptying the Drainage Bag You must empty your drainage bag when it is ?? full. 1. Wash your hands with soap and water before and after handling your catheter. 2. Keep the drainage bag below your hips, below the level of your bladder. This stops urine from going back into the tubing and into your bladder. 3. Hold the dirty bag over the toilet or a clean container. 4. Open the pour spout at the bottom of the bag and empty the urine into the toilet or container. Do not let the pour spout touch the toilet, container, or any other surface. Doing so can place bacteria on the bag, which can cause an infection. 5. Clean the pour spout with a gauze pad or cotton ball that has rubbing alcohol on it. 6. Close the pour spout. 7. Attach the bag to your leg with adhesive tape or a leg strap. Changing the Drainage Bag 1. Wash your hands with soap and water before and after handling your catheter. 2. Pinch off the rubber catheter so that urine does not spill out. 3. Disconnect the catheter tube from the drainage tube at the connection valve. Do not let the tubes touch any surface. 4. Clean the end of the catheter tube with an alcohol wipe. Use a different alcohol wipe to clean the end of the drainage tube. 5. Connect the catheter tube to the drainage tube of the clean drainage bag. 6. Attach the new bag to the leg with adhesive tape or a leg strap. Avoid attaching the new bag too tightly. 7. Place a cap on the drainage bag not in use and store in a clean towel. SEEK MEDICAL CARE IF: ? Your urine is cloudy or smells. ? Your catheter starts to leak. ? Your catheter falls out or is pulled out. ? You have pain, swelling, redness, or pus where the catheter enters the body. ? You have pain in the abdomen, legs, lower back, or bladder. ? You have a fever of 100.4 F (38 C) or higher ? You see pink, red, dark, coffee colored, or pus-like urine. ? You have nausea, vomiting, or chills. ? You are not feeling better in 2 to 3 days or you are feeling worse. ? You are not draining urine into the bag or your bladder feels full. MAKE SURE YOU: ? Understand the reason you have the catheter. ? Understand and follow these instructions to care for the catheter. ? Will watch your condition. ? Drink 6-8 glasses of water or liquids per day to keep your urine clear. ? Avoid Caffeinated drinks. They can irritate the bladder and cause bladder spasms. ? Keep your follow up appointments and call with any concerns. Oncology Transurethral Resection of Bladder Tumor Transurethral resection of a bladder tumor is th (more content not included)... [facility] ECG 12-Leadon 12-02-2023 ECG 12-Lead [id number] #1.00TIFF [facility] Lab Reportson 12-02-2023 Lab Reports [id number] #1.00TIFF [facility] Lab Reports [id number] #1.00TIFF [facility] RAD - MISCon 11-29-2023 RAD - MISC [id number] #1.00TIFF [facility] Consent for Procedure/Surger yon 11-18-2023 Consent for Procedure/Surgery [id number]# 1.00TIFF [facility] Consent for Procedure/Surger yon 11-15-2023 Consent for Procedure/Surgery [id number]# 1.00TIFF [facility] Reminderson 11-14-2023 Reminders - From: Lucero Sutherland To: EU - Recalls Dietrich; Cc: Lucero Sutherland; Sent: 11/14/2023 13:20:30 EST Show up: 01/20/2024 13:20:00 EDT Subject: cysto/fish/cytol Due Date/Time: 02/10/2024 13:20:00 EDT Reminder/Recall Patient will be due in February 2024 for 3 month cysto/fishc/ytol [facility] Reminderson 11-13-2023 Reminders - From: Lucero Sutherland [...] home machine.LG Patient sched for 12/05/23 at [facility]. Confirmation mailed to pt.LG [facility] Consultation Noteon 11-12-19 Consultation Note [id number] #1.00TIFF [facility] Formson 11-08-2023 Forms [id number] #1.00TIFF [facility] Blood Urea Nitrogenon 2023 Urea nitrogen [Mass/Vol] 19 mg/dL Normal 7-25 [facility] Comment on above: Order Comment: STAT FOR CT Performed By: #### C REAT, BUN #### [address] enterographyon 10-23-2023 CT enterography [facility] Main [place] [address] [place] [address] CT Scan Report Signed Patient: Kennedy Kong MR#: [id number] 1435 : 1935 Acct:[id number] Age/Sex: 88 / M ADM Date: 10/23/23 Loc: CT Room: Type: [facility] Attending Dr: Zofia Gates MD Copies to: Zofia Gates MD Ordering Provider: Zofia Gates MD Date of Service: 10/23/23 CT/CT enterography: History of bowel resection;Anastomoti c stricture of colorect CT enterography TECHNIQUE: Axial [...] No para-aortic surgical clips. No retroperitoneal lymphadenopathy. MESENTERY:Unremarkab le SMALL BOWEL: Moderate distention of multiple small [...] Randal Villarreal M.D.10/23/2023 4:06 PM Dictation Location: [place] [address] Transcribed By: [facility] 10/23/23 1606 Dictated By: Randal Villarreal DO 10/23/23 1549 Signed By: 10/23/23 1606 Normal [facility] Calprotectin, Fecalon 2023 Calprotectin, Fecal 35 Normal 0-120 [facility] Comment on above: Result Comment: Conc entration Interpretation Follow-Up < 5 - 50 ug/g Normal None >50 -120 ug/g Borderline Re-evaluate in 4-6 weeks >120 ug/g Abnormal Repeat as clinically indicated Performed at: BN - [facility] [address], [place], [place] [id number] Porcelain Slusher: Danielle Carrington MD, Phone: [phone] PERFORMED BY: [place] [address] PATHOLOGIST SALES REPRESENTATIVE [employer] JAMIE MADISON M.D. Performed By: #### H S TROP, LIPID, CBC, BMP #### [place] [address] [place] Creatinineon 10-23-2023 Creatinine [Mass/Vol] 1.05 mg/dL Normal 0.70-1.30 [facility] Comment on above: Order Comment: STAT FOR CT Performed By: #### H S TROP, LIPID, CBC, BMP #### [place] [address] [place] GFR/1.73 sq M.predicted MDRD (S/P/Bld) [Vol rate/Area] mL/min/{1.73_m2} Normal [facility] Comment on above: Order Comment: STAT FOR CT Result Comment: PERF ORMED BY: [place] [address] PATHOLOGIST SALES REPRESENTATIVE [employer] JAMIE MADISON M.D. Performed By: #### H S TROP, LIPID, CBC, BMP #### [address] Creatinine [Mass/volume] in Serum or PlasmaOrdered By: Imad Asaad on 10-23-2023 Creatinine [Mass/Vol] 1.05 mg/dL 0.70-1.30 [facility] No Panel InformationOrdered By: Imad Asaad on 10-23-2023 Estimated GFR (CKD-EPI) > 60.0 mL/Min [facility] Creatinine Clearance (Chem N/A [facility] Urea nitrogen [Mass/volume] in Serum or PlasmaOrdered By: Imad Asaad on 10-23-2023 Urea nitrogen [Mass/Vol] 19 mg/dL 7 [facility] LACTATE, BLOODOrdered By: Sa ceasar Dorsey on 10-10-2023 Interpretation and review of laboratory results Normal [facility] Lactate [Moles/Vol] 1.6 mmol/L 0.5 - 1. 6 mmol/L [facility] LT BLUE TOP TUBEon [facility] CBC AND ELECTRONIC DIFFon Basophils (Bld) [#/Vol] K/uL 0.00 - 0.09 K/uL [facility] Basophils/100 WBC (Bld) 0.2 % [facility] Differential cell count method Nom (Bld) Electronic Differential [facility] Eosinophils (Bld) [#/Vol] 0.04 10*3/uL 0.00 - 0.48 K/uL [facility] Eosinophils/100 WBC (Bld) 0.4 % [facility] Erythrocyte distribution width (RBC) [Ratio] 13.9 % 10.9 - 14.3 % [facility] Hematocrit (Bld) [Volume fraction] 44.9 % 39.6 - 48.8 % [facility] Hemoglobin (Bld) [Mass/Vol] 14.4 g/dL 13.4 - 16.8 g/dL [facility] Immature granulocytes (Bld) [#/Vol] K/uL NINF - 0.07 K/uL [facility] Immature granulocytes/100 WBC (Bld) 0.3 % [facility] Interpretation and review of laboratory results Abnormal [facility] Lymphocytes (Bld) [#/Vol] 0.88 10*3/uL 0.83 - 3.57 K/uL [facility] Lymphocytes/100 WBC (Bld) 9.4 % [facility] MCH (RBC) [Entitic mass] 29.7 pg 26.1 - 33.3 pg [facility] MCHC (RBC) [Mass/Vol] 32.1 g/dL 31.9 - 36.5 g/dL [facility] MCV (RBC) [Entitic vol] 92.6 fL 79.0 - 94.5 fL [facility] Monocytes (Bld) [#/Vol] 1.08 10*3/uL High 0.24 - 0.93 K/uL [facility] Monocytes/100 WBC (Bld) 11.5 % [facility] Neutrophils (Bld) [#/Vol] 7.35 10*3/uL High 1.57 - 6.19 K/uL [facility] Nucleated RBC/100 WBC (Bld) [Ratio] 0.0 % NINF [facility] Platelet mean volume (Bld) [Entitic vol] 8.8 fL 8.7 - 12.3 fL [facility] Platelets (Bld) [#/Vol] 206 10*3/uL 146 - 337 K/uL [facility] RBC (Bld) [#/Vol] 4.85 10*6/uL [facility] Segmented neutrophils/100 WBC (Bld) 78.2 % [facility] WBC (Bld) [#/Vol] 9.40 10*3/uL 3.73 - 10. 10 K/uL [facility] CHEM 6 (LYTES, BUN CREA)on 12-10-2022 Anion gap [Moles/Vol] 11 mmol/L 7 - 17 mmol/L [facility] Chloride [Moles/Vol] 104 mmol/L 98 - 10 8 mmol/L [facility] CO2 [Moles/Vol] 26 mmol/L 21 - 31 mmol/L [facility] Creatinine [Mass/Vol] 0.97 mg/dL 0.70 - 1.30 mg/dL [facility] eGFR, CKD-EPI, Male 76 - PINF [facility] Comment on above: Reported eGFR is bas ed on the CKD-EPI 2020 equation using creatinine, age, and sex. Potassium [Moles/Vol] 4.0 mmol/L 3.5 - 5.0 mmol/L [facility] Sodium [Moles/Vol] 137 mmol/L 135 - 145 mmol/L [facility] Urea nitrogen [Mass/Vol] 23 mg/dL 7 - 25 mg/dL [facility] Urea nitrogen/Creatinine [Mass ratio] 24 mg/mg [facility] GLUCOSEon 10-09-2023 Glucose [Mass/Vol] 123 mg/dL High 70 - 99 mg/dL [facility] HEPATIC FUNCTION PANELon Albumin [Mass/Vol] 4.4 g/dL 3.5 - 5.0 g/dL [facility] ALP [Catalytic activity/Vol] 57 U/L 32 - 126 U/L [facility] ALT [Catalytic activity/Vol] 8 U/L Low 10 - 52 U/L [facility] AST [Catalytic activity/Vol] 15 U/L 10 - 39 U/L [facility] Bilirubin [Mass/Vol] 0.7 mg/dL NINF - 1.5 mg/dL [facility] Bilirubin.direct [Mass/Vol] 0.2 mg/dL NINF - 0.3 mg/dL [facility] Protein [Mass/Vol] 7.3 g/dL 6.4 - 8.3 g/dL [facility] LIPASEon 10-09-2023 Interpretation and review of laboratory results Normal [facility] Lipase [Catalytic activity/Vol] 12 U/L 11 - 82 U/L [facility] No Panel Informationon 10-09 Interpretation and review of laboratory results Abnormal [facility] Echocardiogramon 06-25-[address], [address] [place] [address] TRANSTHORACIC ECHOCARDIOGRAM REPORT Patient Name: KENNEDY KONG Letty Physician: [id number] Hannah Abraham MD Study Date: 06/25/2023 Referring ADRIEL MORGAN Physician: MRN/PID: [id number] PCP: Nestor Estrella Accession/Order#: [id number] Department [facility] Location: Date of : 1935 Fellow: Gender: M Nurse: Admit Date: Flight Agent: Flores Love [address], [facility] Height: 177.80 cm CC Report to: Weight: 83.92 kg Study Type: Echocardiogram BSA: 2.02 m2 Blood Pressure: 110 /64 mmHg Diagnosis/ICD: 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; I51.9-Heart disease, unspecified; 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) Indication: Hyperlipidemia, ME and PTCA-04/22/2023 Procedure/CPT: Echo Complete w Full Doppler-92714 Study Detail: The following Echo studies were [...] mmHg PIEDV: 1.64 m/s PADP: 13.8 mmHg [id number] Hannah Abraham MD Electronically signed on 06/25/2023 at 2:13:32 PM Final Normal [facility] UroVysion Fish and Urine Cyt o ([facility])on 05-17-2023 UVFISH & UC Diagnosis Info Invalid Interpretation Code [facility] Comment on above: Result Comment: A:Ur [...] correlated with cytology and cystoscopy results.* CPT 26834, 69336. Microscopic Notes - Microscopic Notes - Abnormal cells 9p21 deletions: 34 Abnormal cells aneploid events: 86 Total cells analyzed: 100 Hematuria: Gross Description Site ID:A color Yellow fixative Alcohol Received 70 mls of clearish yellow fluid with the patient's name and, Urine on the vial. Electronically signed by : on: 05/17/2023 11:19:51 Performed By: #### 1 [id number] ####[facility] [address] [place] [address] Consent for Procedure/Surger yon 05-16-2023 Consent for Procedure/Surgery 104.170.. [id number] #1.00CD:127 Normal [facility] Formson 05-16-2023 Forms [id number] #1.00CD:127 [facility] Consent for Procedure/Surger yon 05-14-2023 Consent for Procedure/Surgery [id number] #1.00CD:127 [facility] Consent for Treatmenton 07-2 Consent for Treatment [id number] #1.00CD:127 [facility] IntraOperative Documentson 0 05-14-2023 IntraOperative Documents [id number] #1.00CD:127 [facility] Main OR Intraoperative Recor don 05-14-2023 Main OR Intraoperative Record IntraOp Document Type FTURO Summary Primary Physician: Kylie DIETRICH MD Finalized Date/Time: 05/14/23 14:52:05 Pt. Name: LUANNKENNEDY/Sex: 1935 Male Med Rec #: [id number] Physician: Kylie DIETRICH MD Financial #: [id number] Pt. Type: O Room/Bed: / Admit/Disch: 05/14/23 13:13:51 - Institution: Case Times FTURO Entry 1 Patient Times In Room 05/14/23 14:27:00 Out Room 05/14/23 14:48:00 Procedure Times Start 05/14/23 14:32:00 Stop 05/14/23 14:47:00 Anesthesia Times Last Modified By: Emilee ANDERSON, Lyric FRANCIS 05/14/23 14:51:42 Case Attendance FTURO Entry 1 Entry 2 Entry 3 Case Attendee KARLO CHOI, Kylie Hebert RN, CNOR, Tammy POLK, Chrystal Gunter Role Performed Surgeon - Primary Automation Specialist - Primary Scrub - Primary Time In 05/14/23 14:27:00 05/14/23 14:27:00 05/14/23 14:27:00 Time Out 05/14/23 14:48:00 05/14/23 14:48:00 05/14/23 14:48:00 Procedure CYSTOSCOPY LOCAL(.) CYSTOSCOPY LOCAL(.) CYSTOSCOPY LOCAL(.) Comments Last Modified By: Emilee ANDERSON, CNOR, Emilee ANDERSON, CNOR, Emilee ANDERSON, CNOR, Lyric 05/14/23 Lyric 05/14/23 Lyric 05/14/23 14:51:43 [...] bladder at bladder neck Last Modified By: Emilee ANDERSON, KANNANOR, Lyric 05/14/23 14:51:18 Post-Care Text: The patient [...] PENNY Hebert RN, Ruthann 05/14/23 14:52 Normal [facility] Main OR Preoperative Recordo n 05-14-2023 Main OR Preoperative Record Holding Area Document Type FTURO Summary Primary Physician: Kylie DIETRICH MD Finalized Date/Time: 05/14/23 14:28:27 Pt. Name: KENNEDY KONG /Sex: 1935 Male Med Rec #: [id number] Physician: Kylie DIETRICH MD Financial #: [id number] Pt. Type: O Room/Bed: / Admit/Disch: 05/14/23 [...] Complaints of Pain: No Skin Integrity Intact, Mentor, Warm, & Dry Vitals - EU Blood Pressure 128/60 Pulse 73 bpm Respirations 20 br/min SPO2 96 % RN Reviewed Yes Last Modified By: PENNY Hebert RN, Ruthann 05/14/23 14:28:24 General Comments: Temp 98.1 Finalized By: PENNY Hebert RN, Ruthann Document Signatures Signed By: Marilee Vaughn LPN 05/14/23 14:03 PENNY Hebert RN, Ruthann 05/14/23 14:28 Normal [facility] Operative Reporton Operative Report Patient: KENNEDY KONG Age: 87 years Sex: Male : 1935 Associated Diagnoses: None Author: Kylie DIETRICH MD Procedure Operative Information Details: Date/ Time: 05/14/2023 14:41:00. Pre-Op Dx: Hx of Bladder CA - Z85.51, Bladder Mass - D41.4. Post-Op Dx: Same, Penile and bulbar urethral stenosis. Anesthesia Type: Local. Procedure: Local Cystoscopy. Complications: None. Risks/Benefits/Infor med Consent: Surgical risks, benefits, details of the [...] resection of bladder tumors under general.. Normal [facility] Comment on above: Result Comment: Elec tronically Signed By: KARLO CHOI, Kylie Restrepo\.br\Date and Time Signed: 05/14/23 14:43 EDT Outpatient Surgery Discharge Instructionon 05-14-2023 Outpatient Surgery Discharge Instruction [id number] #1.00CD:127 Normal [facility] Progress Note-Physicianon Progress Note-Physician Patient: KENNEDY [...] obstruction/lower urinary tract symptoms / SNOMED CT 4709894596 / Confirmed History of ulcerative colitis / SNOMED CT 815018735 / Confirmed Trigeminal neuralgia of right side of face / SNOMED CT 95656578 / Confirmed Hyperlipidemia / SNOMED CT 76893436 / Confirmed Chronic venous insufficiency / SNOMED CT 32356548 / Confirmed Lumbar spondylosis / SNOMED CT 799678135 / Confirmed Right hip pain / SNOMED CT 65232965 / Confirmed Chronic kidney disease / SNOMED CT 8668781047 / Confirmed Gross hematuria / SNOMED CT 870258564 / Confirmed Osteoarthritis of right hip / SNOMED CT 7206500855 / Confirmed Urinary incontinence / SNOMED CT 2117079942 / Confirmed Renal cyst / SNOMED CT 4862558536 / Confirmed Hydrocele / SNOMED CT 7319853195 / Confirmed BMI 24.0-24.9, adult / SNOMED CT 5405796488 / Confirmed Bladder tumor / SNOMED CT 756086 / Confirmed Bladder cancer / SNOMED CT 2670095981 / Confirmed Asymptomatic microscopic hematuria / SNOMED CT 3226640426 / Confirmed UTI (urinary tract infection) / SNOMED CT 994715549 / Confirmed 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 hydrocele: Resolved. Family History: Colon cancer Father () Procedure history: Endoscopic destruction of bladder tumor by laser EVOLVE ([id number]) on 12/13/2020 at 85 Years. TURBT - with left ureteroscopy and left stent placement ([id number]) on 05/26/2020 at 84 Years. Hydrocelectomy ([id number]) in 2001 at 67 Years. colon resection. colonoscopy. Cataract ([id number]). Comments: 10/17/2010 12:31 CESARIO - Martha Mazariegos [...] he then will require more BCG. Normal [facility] Comment on above: Result Comment: Elec tronically Signed By: KARLO CHOI, Kylie Gill\Date and Time Signed: 07/25/23 14:46 EDT Ambulatory Visit Summaryon 0 05-10-2023 [...] treatment for. colon ca resection hydrocele Normal [facility] UroVysion Fish and Urine Cyt o ([facility])on 05-10-2023 [facility] Method of Extraction Voided Normal [facility] Comment on above: Performed By: #### 1 [id number] ####[facility] [address] [place] [address] [facility] Number of Jars 1 Invalid Interpretation Code [facility] Comment on above: Performed By: #### 1 [id number] ####[facility] [address] [place] [address] [facility] Specimen Urine Normal [facility] Comment on above: Performed By: #### 1 [id number] ####[facility] [address] [place] [address] [facility] Type of Service Technical Only Normal [facility] Comment on above: Performed By: #### 1 [id number] ####[facility] [address] [place] [address] Office Visit (Cardiology)on 05-02-2023 Follow-up visit Diagnoses/Problems [...] Aminotransferase, Serum; Status:Active - Retrospective Authorization; Requested for:09Klt7419; AST; Status:Active - Retrospective Authorization; Requested for:58Kzk8890; Complete Blood Count; Status:Active - Retrospective Authorization; Requested for:10Yse7814; Echocardiogram; Status:Hold For - Scheduling,Retrospec tive Authorization; Requested for:[id number]; Lipid Panel; Status:Active - Retrospective Authorization; Requested for:29Ffd4143; SocHx: Never a smoker Tobacco Use Screening; Status:Complete; Done: [id number] Patient Instructions Please bring all medicines, vitamins, [...] gentleman who returns following recent non-ST elevation ME due to occluded obtuse marginal branch with primary revascularization with drug-eluting stent and is doing well. He has mild LV dysfunction, No significant coronary disease, ejection fraction of 45%. 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 Vitals Vital Signs Recorded: 40Dfh1685 11:57AM Heart Rate60, L Radial Riksqfxu554, LUE, Sitting Fpmshtatk57, LUE, Sitting Height5 ft 10 in Exkghk034 lb BMI Laczscrwyw14.54 kg/m2 BSA Calculated2.02 Tobacco Useb) No PHQ-2 [...] May 02 2023 12:49PM EST (Author) Normal [facility] Tobacco Screening.on 023 Adult depression screening assessment No [facility] [employer] [facility] [address] DO Work Phone: Fall risk assessment a) No falls within the last year [facility] [address] DO Work Phone: Tobacco use status [facility]PH[facility] b) No [facility] [address] DO Work Phone: Basic Metabolic Panelon 07-0 Anion gap [Moles/Vol] 10.5 mmol/L Normal 6.0-15.0 [facility] Comment on above: Performed By: #### H S TROP, LIPID, CBC, BMP #### [facility] [address] [place] [id number] [place] Calcium [Mass/Vol] 8.7 mg/dL Normal 8.6-10.3 [facility] Comment on above: Performed By: #### H S TROP, LIPID, CBC, BMP #### [facility] [address] [place] [address] [place] Chloride [Moles/Vol] 106 mmol/L Normal 98-107 [facility] Comment on above: Performed By: #### H S TROP, LIPID, CBC, BMP #### [facility] [address] [place] [address] [place] CO2 [Moles/Vol] 25.0 mmol/L Normal 21.0-31.0 [facility] Comment on above: Performed By: #### H S TROP, LIPID, CBC, BMP #### [facility] [address] [place] [address] [place] Creatinine [Mass/Vol] 0.99 mg/dL Normal 0.70-1.30 [facility] Comment on above: Performed By: #### H S TROP, LIPID, CBC, BMP #### [facility] [address] [place] [address] [place] Creatinine Clr Calc Pharmacy 55.30 [facility] Comment on above: Performed By: #### H S TROP, LIPID, CBC, BMP #### [facility] [address] [place] [address] [place] GFR/1.73 sq M.predicted MDRD (S/P/Bld) [Vol rate/Area] mL/min/{1.73_m2} [facility] Comment on above: Performed By: #### H S TROP, LIPID, CBC, BMP #### [address] Glucose [Mass/Vol] 110 mg/dL High 70-100 [facility] Comment on above: Result Comment: [facility] Glucose Reference Range is dependent on time and content of last meal. Glucose of more than 200 mg/dL in a nonstressed, ambulatory subject supports the diagnosis of Diabetes Mellitus. ADA recommended reference range Performed By: #### H S TROP, LIPID, CBC, BMP #### [facility] [address] [place] [address] [place] Potassium [Moles/Vol] 4.5 mmol/L Normal 3.5-5.1 [facility] Comment on above: Performed By: #### H S TROP, LIPID, CBC, BMP #### [facility] [address] [place] [address] [place] Sodium [Moles/Vol] 137 mmol/L Normal 136-145 [facility] Comment on above: Performed By: #### H S TROP, LIPID, CBC, BMP #### [facility] [address] [place] [address] [place] Urea nitrogen [Mass/Vol] 24 mg/dL Normal 7-25 [facility] Comment on above: Performed By: #### H S TROP, LIPID, CBC, BMP #### [facility] [address] Basophils Auto (Bld) [#/Vol] Ordered By: Ko Morgan on 04-23-2023 Basophils (Bld) [#/Vol] 0.1 10*3/uL 0.0-0.2 [facility] Basophils/100 WBC Auto (Bld) Ordered By: Ko Morgan on 04-23-2023 Basophils/100 WBC (Bld) 0.7 % . [facility] Calcium [Mass/volume] in Ser um or PlasmaOrdered By: Ko Morgan on 04-23-2023 Calcium [Mass/Vol] 8.7 mg/dL 8.6-10.3 [facility] Carbon dioxide, total [Moles /volume] in Serum or PlasmaOrdered By: Ko Morgan on 04-23-2023 CO2 [Moles/Vol] 25.0 mmol/L 21.0-31.0 [facility] Chloride [Moles/volume] in S aimee or PlasmaOrdered By: Ko Morgan on 04-23-2023 Chloride [Moles/Vol] 106 mmol/L 98-107 [facility] Cholesterol [Mass/volume] in Serum or PlasmaOrdered By: Ko Morgan on 04-23-2023 Cholesterol [Mass/Vol] 148 mg/dL 140-200 [facility] Comment on above: Chol less than 200 m g/dl low riskChol 201-239 mg/dl borderline riskChol 240 mg/dl and greater high risk Cholesterol in LDL Calc [Mas s/Vol]Ordered By: Ko Morgan on 04-23-2023 Cholesterol in LDL [Mass/Vol] 73 mg/dL 0-100 [facility] Comment on above: LDL ATP III CLASSIFI CATIONLDL less than 100 mg/dL OptimalLDL 100-129 mg/dL Near or above optimalLDL 130-159 mg/dL Borderline highLDL 160-189 mg/dL HighLDL greater than 189 mg/dL Very high Cholesterol in VLDL Calc [Ma ss/Vol]Ordered By: Ko Morgan on 04-23-2023 Cholesterol in VLDL [Mass/Vol] 19 mg/dL [facility] Complete Blood Count Auto Di ffon 04-23-2023 Basophils (Bld) [#/Vol] 0.1 10*3/uL Normal 0.0-0.2 [facility] Comment on above: Result Comment: PERF ORMED BY: [place] [address] PATHOLOGIST SALES REPRESENTATIVE [employer] JAMIE MADISON M.D. Performed By: #### H S TROP, LIPID, CBC, BMP #### [facility] [address] [place] [address] Basophils/100 WBC (Bld) 0.7 % Normal . [facility] Comment on above: Performed By: #### H S TROP, LIPID, CBC, BMP #### [facility] [address] [place] [address] Eosinophils (Bld) [#/Vol] 0.1 10*3/uL Normal 0.0-0.45 [facility] Comment on above: Performed By: #### H S TROP, LIPID, CBC, BMP #### [facility] [address] [place] [address] Eosinophils/100 WBC (Bld) 1.5 % Normal . [facility] Comment on above: Performed By: #### H S TROP, LIPID, CBC, BMP #### [facility] [address] [place] [address] Erythrocyte distribution width (RBC) [Ratio] 13.6 % Normal 12.0-14.8 [facility] Comment on above: Performed By: #### H S TROP, LIPID, CBC, BMP #### [facility] [address] [place] [address] Hematocrit (Bld) [Volume fraction] 40.6 % Normal 38.8-50.0 [facility] Comment on above: Performed By: #### H S TROP, LIPID, CBC, BMP #### [facility] [address] [place] [address] Hemoglobin (Bld) [Mass/Vol] 13.4 g/dL Normal 13.0-17.0 [facility] Comment on above: Performed By: #### H S TROP, LIPID, CBC, BMP #### [address] Lymphocytes (Bld) [#/Vol] 0.9 10*3/uL Low 1.00-4.8 [facility] Comment on above: Performed By: #### H S TROP, LIPID, CBC, BMP #### [address] Lymphocytes/100 WBC (Bld) 10.5 % Normal . [facility] Comment on above: Performed By: #### H S TROP, LIPID, CBC, BMP #### [address] MCH (RBC) [Entitic mass] 29.7 pg Normal 27.5-35.2 [facility] Comment on above: Performed By: #### H S TROP, LIPID, CBC, BMP #### [address] MCV (RBC) [Entitic vol] 89.8 fL Normal 83.5-101 [facility] Comment on above: Performed By: #### H S TROP, LIPID, CBC, BMP #### [address] Mean Corpuscular HGB Conc 33.1 g/dL Normal 32.5-35.6 [facility] Comment on above: Performed By: #### H S TROP, LIPID, CBC, BMP #### [address] Monocytes (Bld) [#/Vol] 1.1 10*3/uL High 0.0-0.8 [facility] Comment on above: Performed By: #### H S TROP, LIPID, CBC, BMP #### [address] Monocytes/100 WBC (Bld) 14.1 % Normal . [facility] [facility] Comment on above: Performed By: #### H S TROP, LIPID, CBC, BMP #### [address] Neutrophils (Bld) [#/Vol] 5.9 10*3/uL Normal 1.8-7.7 [facility] Comment on above: Performed By: #### H S TROP, LIPID, CBC, BMP #### [facility] [address] Neutrophils/100 WBC (Bld) 73.2 % Normal . [facility] Comment on above: Performed By: #### H S TROP, LIPID, CBC, BMP #### [address] NRBC% 0.1 /100{WBC} Normal 0-0.5 [facility] Comment on above: Performed By: #### H S TROP, LIPID, CBC, BMP #### [address] Platelet mean volume (Bld) [Entitic vol] 6.8 fL Normal 6.6-10.1 [facility] Comment on above: Performed By: #### H S TROP, LIPID, CBC, BMP #### [address] Platelets (Bld) [#/Vol] 215 10*3/uL Normal 150-450 [facility] Comment on above: Performed By: #### H S TROP, LIPID, CBC, BMP #### [address] RBC (Bld) [#/Vol] 4.52 10*6/uL Normal 3.90-5.60 [facility] Comment on above: Performed By: #### H S TROP, LIPID, CBC, BMP #### [place] [address] [place] WBC (Bld) [#/Vol] 8.1 10*3/uL Normal 4.1-10.5 [facility] Comment on above: Performed By: #### H S TROP, LIPID, CBC, BMP #### [address] Creatinine [Mass/volume] in Serum or PlasmaOrdered By: Ko Morgan on 04-23-2023 Creatinine [Mass/Vol] 0.99 mg/dL 0.70-1.30 [facility] ECG 12 lead ECGon 04-23-2023 ECG 12 lead ECG [facility] Main [place] [address] [place], [place] [id number] Electrocardiograph Report Signed Patient: Kennedy Kong MR#: [id number] : 1935 Acct:[id number] Age/Sex: 87 / M ADM Date: 04/22/23 Loc: Room: [address] [place] [address] Type: ADM IN Attending Dr: Kkii Motta MD Ordering Provider: Ko Morgan DO [...] consider inferior injury or acute infarct ACUTE ME / STEMI Abnormal ECG No previous ECGs available Confirmed by RANDAL SRIVASTAVA DO ([id number]) on 04/23/2023 9:23:52 AM Referred By: Electronically Signed By:RANDAL SRIVASTAVA DO Transcribed By: MUS Signed By Randal Srivastava DO 04/23 Normal [facility] Eosinophils Auto (Bld) [#/Vo l]Ordered By: Ko Morgan on 04-23-2023 Eosinophils (Bld) [#/Vol] 0.1 10*3/uL 0.0-0.45 [facility] Eosinophils/100 WBC Auto (Bl d)Ordered By: Ko Morgan on 04-23-2023 Eosinophils/100 WBC (Bld) 1.5 % . [facility] Erythrocyte distribution wid th Auto (RBC) [Ratio]Ordered By: Ko Morgan on 04-23-2023 Erythrocyte distribution width (RBC) [Ratio] 13.6 % 12.0-14.8 [facility] Glucose [Mass/volume] in Ser um or PlasmaOrdered By: Ko Morgan on 04-23-2023 Glucose [Mass/Vol] 110 mg/dL 70-100 [facility] Comment on above: ADA recommended refe rence rangeRandom Glucose Reference Range is dependent on time and content of last meal. Glucose of more than 200 mg/dL in a nonstressed, ambulatory subject supports the diagnosis of Diabetes Mellitus. Hematocrit Auto (Bld) [Volum e fraction]Ordered By: Ko Morgan on 04-23-2023 Hematocrit (Bld) [Volume fraction] 40.6 % 38.8-50.0 [facility] Hemoglobin [Mass/volume] in BloodOrdered By: Ko Morgan on 04-23-2023 Hemoglobin (Bld) [Mass/Vol] 13.4 g/dL 13.0-17.0 [facility] Leukocytes [#/volume] correc ramona for nucleated erythrocytes in Blood by Automated counOrdered By: Ko Morgan on 04-23-2023 WBC corrected for nucl RBC Auto (Bld) [#/Vol] 8.1 10*3/uL 4.1-10.5 [facility] Lipid Panelon 04-23-2023 Cholesterol [Mass/Vol] 148 mg/dL Normal 140-200 [facility] Comment on above: Result Comment: Chol less than 200 mg/dl low risk Chol 201-239 mg/dl borderline risk Chol 240 mg/dl and greater high risk Performed By: #### H S TROP, LIPID, CBC, BMP #### [facility] [address] Cholesterol in HDL [Mass/Vol] 56 mg/dL Normal 23-92 [facility] Comment on above: Result Comment: HDL CHOL ATP-III CLASSIFICATION Cardiovascular Risk HDL > or equal to 60 mg/dL LOW HDL < 40 mg/dL HIGH Performed By: #### H S TROP, LIPID, CBC, BMP #### [facility] [address] Cholesterol.total/Chol esterol in HDL [Mass ratio] 2.6 {ratio} Normal <5.0 [facility] Comment on above: Result Comment: PERF ORMED BY: [facility] [address] [place] [address] PATHOLOGIST SALES REPRESENTATIVE [employer] JAMIE MADISON M.D. Performed By: #### H S TROP, LIPID, CBC, BMP #### [facility] [address] LDL Cholesterol,Calculated 73 mg/dL Normal 0-100 [facility] Comment on above: Result Comment: LDL ATP III CLASSIFICATION LDL less than 100 mg/dL Optimal LDL 100-129 mg/dL Near or above optimal LDL 130-159 mg/dL Borderline high LDL 160-189 mg/dL High LDL greater than 189 mg/dL Very high Performed By: #### H S TROP, LIPID, CBC, BMP #### [facility] [address] Triglyceride w/Reflex 97 mg/dL Normal 0-149 [facility] Comment on above: Result Comment: TRIG ATP III CLASSIFICATION TRIG less than 150 mg/dL Normal TRIG 150-199 mg/dL Borderline high TRIG 200-500 mg/dL High TRIG greater than 500 mg/dL Very high Standard traceable to the Center for Disease Conrtrol and Prevention (CDC) test method. Performed By: #### H S TROP, LIPID, CBC, BMP #### [facility] [address] VLDL CHOLESTEROL 19 mg/dL Normal [facility] Comment on above: Performed By: #### H S TROP, LIPID, CBC, BMP #### [facility] [address] Lymphocytes Auto (Bld) [#/Vo l]Ordered By: Ko Morgan on 04-23-2023 Lymphocytes (Bld) [#/Vol] 0.9 10*3/uL 1.00-4.8 [facility] Lymphocytes/100 WBC Auto (Bl d)Ordered By: Ko Morgan on 04-23-2023 Lymphocytes/100 WBC (Bld) 10.5 % . [facility] MCH Auto (RBC) [Entitic mass ]Ordered By: Ko Morgan on 04-23-2023 MCH (RBC) [Entitic mass] 29.7 pg 27.5-35.2 [facility] MCHC Auto (RBC) [Mass/Vol]Or dered By: Ko Morgan on 04-23-2023 MCHC (RBC) [Mass/Vol] 33.1 g/dL 32.5-35.6 [facility] MCV Auto (RBC) [Entitic vol] Ordered By: Ko Morgan on 04-23-2023 MCV (RBC) [Entitic vol] 89.8 fL 83.5-101 [facility] Monocytes Auto (Bld) [#/Vol] Ordered By: Ko Morgan on 04-23-2023 Monocytes (Bld) [#/Vol] 1.1 10*3/uL 0.0-0.8 [facility] Monocytes/100 WBC Auto (Bld) Ordered By: Ko Morgan on 04-23-2023 Monocytes/100 WBC (Bld) 14.1 % . [facility] Neutrophils Auto (Bld) [#/Vo l]Ordered By: Ko Morgan on 04-23-2023 Neutrophils (Bld) [#/Vol] 5.9 10*3/uL 1.8-7.7 [facility] Neutrophils/100 WBC Auto (Bl d)Ordered By: Ko Morgan on 04-23-2023 Neutrophils/100 WBC (Bld) 73.2 % . [facility] No Panel InformationOrdered By: Ko Morgan on 04-23-2023 Estimated GFR (CKD-EPI) > 60.0 mL/Min [facility] Creatinine Clearance (Chem 55.30 [facility] Nucleated erythrocytes [Pres ence] in Blood by Automated countOrdered By: Ko Morgan on 04-23-2023 Nucleated RBC Auto Ql (Bld) 0.1 /100{WBC} 0-0.5 [facility] Platelet mean volume Auto (B ld) [Entitic vol]Ordered By: Ko Morgan on 04-23-2023 Platelet mean volume (Bld) [Entitic vol] 6.8 fL 6.6-10.1 [facility] Platelets Auto (Bld) [#/Vol] Ordered By: Ko Morgan on 04-23-2023 Platelets (Bld) [#/Vol] 215 10*3/uL 150-450 [facility] Potassium [Moles/volume] in Serum or PlasmaOrdered By: Ko Morgan on 04-23-2023 Potassium [Moles/Vol] 4.5 mmol/L 3.5-5.1 [facility] RBC Auto (Bld) [#/Vol]Ordere d By: Ko Morgan on 04-23-2023 RBC (Bld) [#/Vol] 4.52 10*6/uL 3.90-5.60 [facility] Serum or plasma anion gap de terminationOrdered By: Ko Morgan on 04-23-2023 Anion gap [Moles/Vol] 10.5 mmol/L 6.0-15.0 [facility] Serum or plasma high density lipoprotein (HDL) cholesterol measurementOrdered By: Ko Morgan on 04-23-2023 Cholesterol in HDL [Mass/Vol] 56 mg/dL 23-92 [facility] Comment on above: HDL CHOL ATP-III CLA SSIFICATION Cardiovascular RiskHDL > or equal to 60 mg/dL LOWHDL < 40 mg/dL HIGH Serum or plasma total choles terol/high density lipoprotein (HDL) cholesterol mass ratOrdered By: Ko Morgan on 04-23-2023 Cholesterol.total/Chol esterol in HDL [Mass ratio] 2.6 {ratio} <5.0 [facility] Sodium [Moles/volume] in Ser um or PlasmaOrdered By: Ko Morgan on 04-23-2023 Sodium [Moles/Vol] 137 mmol/L 136-145 [facility] Triglyceride [Mass/volume] i n Serum or PlasmaOrdered By: Ko Morgan on 04-23-2023 Triglyceride [Mass/Vol] 97 mg/dL 0-149 [facility] Comment on above: TRIG ATP III CLASSIF ICATIONTRIG less than 150 mg/dL NormalTRIG 150-199 mg/dL Borderline highTRIG 200-500 mg/dL High TRIG greater than 500 mg/dL Very highStandard traceable to the Center for Disease Conrtrol and Prevention (CDC) test method. Troponin I High Sensitivityo n 04-23-2023 Troponin I High Sensitivity 43465.2 pg/mL Off scale high 0.0-20.0 [facility] Comment on above: Result Comment: Crit ical Result : Called to and read back by: STACY JACKSON at: 04/23/2023 04:24:25 by:[id number] PERFORMED BY: [place] [address] PATHOLOGIST SALES REPRESENTATIVE [employer] JAMIE MADISON M.D. Performed By: #### H S TROP, LIPID, CBC, BMP #### [facility] [address] [place] [address] [facility] Troponin I High Sensitivity 03501.0 pg/mL Off scale high 0.0-20.0 [facility] Comment on above: Result Comment: Crit ical Result I_TnIHS_d:57651.0 Called to and read back by: STACY JACKSON at: 04/23/2023 00:43:35 by:[id number] PERFORMED BY: [place] [address] PATHOLOGIST SALES REPRESENTATIVE [employer] JAMIE MADISON M.D. Performed By: #### H S TROP #### [facility] [address] [place] [address] Troponin I.cardiac [Mass/vol ume] in Serum or Plasma by Detection limit <= 0.01 ng/Ordered By: Ko Morgan on 04-23-2023 Troponin I.cardiac DL <= 0.01 ng/mL [Mass/Vol] 95160.2 pg/mL 0.0-20.0 [facility] Comment on above: Critical Result : Ca lled to and read back by: STACY JACKSON at: 04/23/2023 04:24:25 by:[id number] Urea nitrogen [Mass/volume] in Serum or PlasmaOrdered By: Ko Morgan on 04-23-2023 Urea nitrogen [Mass/Vol] 24 mg/dL 7-25 [facility] WBC Auto (Bld) [#/Vol]Ordere d By: Ko Morgan on 04-23-2023 WBC (Bld) [#/Vol] 8.1 10*3/uL 4.1-10.5 [facility] ECG 12 lead ECGon 04-22-2023 ECG 12 lead ECG [facility] Main [place] [address] [place] [address] Electrocardiograph Report Signed Patient: Kennedy Kong MR#: [id number] 1435 : 1935 Acct:[id number] Age/Sex: 87 / M ADM Date: 04/22/23 Loc: Room: [address] [place] [address] Type: ADM IN Attending Dr: Kiki Motta [...] By Randal Srivastava DO 04/23 0923 Normal [facility] Troponin I High Sensitivityo n 04-22-2023 Troponin I High Sensitivity 51933.2 pg/mL Off scale high 0.0-20.0 [facility] Comment on above: Result Comment: Crit ical Result I_TnIHS_d:19765.2 Called to and read back by: STACY JACKSON at: 04/22/2023 20:59:13 by:[id number] PERFORMED BY: [place] [address] PATHOLOGIST SALES REPRESENTATIVE [employer] JAMIE MADISON M.D. Performed By: #### H S TROP #### [address] Troponin I High Sensitivity 31194.7 pg/mL Off scale high 0.0-20.0 [facility] Comment on above: Result Comment: Crit ical Result I_TnIHS_d:96925.7 Called to and read back by: IRIS MARQUES at: 04/22/2023 18:09:03 by:[id number] PERFORMED BY: [place] [address] PATHOLOGIST SALES REPRESENTATIVE [employer] JAMIE MADISON M.D. Performed By: #### H S TROP, LIPID, CBC, BMP #### [place] [id number] [facility] Troponin I High Sensitivity 47132.8 pg/mL Off scale high 0.0-20.0 [facility] Comment on above: Result Comment: Crit ical Result : Called to and read back by: IRIS MARQUES at: 04/22/2023 16:04 by:[id number] PERFORMED BY: [place] [id number] PATHOLOGIST SALES REPRESENTATIVE [employer] JAMIE MADISON M.D. Performed By: #### H S TROP, LIPID, CBC, BMP #### [place] [id number] [facility] Consent for Procedure/Surger yon 04-09-2023 Consent for Procedure/Surgery [id number]# 1.00CD:127 Normal [facility] Ambulatory Visit Summaryon 0 04-08-2023 Ambulatory Visit Summary KENNEDY KONG :1935 Visit Date:04/08/2023 Ambulatory Visit Instructions Your Diagnosis Asymptomatic microscopic hematuria Tests Performed Urnls Dip Stick Auto w/o Microscopy POC 27700 Your Care Team Attending Physician - KARLO [...] Urnls Dip Stick Auto w/o Microscopy POC 91718 (04/08/2023) Bilirubin Urine Dipstick - Negative Blood Urine Dipstick - Negative Glucose Urine Dipstick - Negative Ketones Urine Dipstick - Negative Leukocytes Urine Dipstick - Negative Nitrite Urine Dipstick - Negative Protein Urine Dipstick - Negative Specific [place] Urine Dipstick - 1.025 Urine Appearance Urine [...] treatment for. colon ca resection hydrocele Normal [facility] Ambulatory Visit Summaryon 0 03-11-2023 Ambulatory Visit Summary KENNEDY KONG :1935 Visit Date:03/11/2023 Ambulatory Visit Instructions Your Diagnosis Bladder cancer Tests Performed Urnls Dip Stick Auto w/o Microscopy POC 94452 Your Care Team Attending Physician - Kylie [...] Urnls Dip Stick Auto w/o Microscopy POC 51873 (03/11/2023) Bilirubin Urine Dipstick - Negative Blood Urine Dipstick - 2+ Moderate Glucose Urine Dipstick - Negative Ketones Urine Dipstick - Negative Leukocytes Urine Dipstick - Negative Nitrite Urine Dipstick - Negative Protein Urine Dipstick - Negative Specific [place] Urine Dipstick - 1.025 Urine Appearance Urine [...] receiving treatment for. colon ca resection hydrocele [facility] Consent for Procedure/Surger yon 03-11-2023 Consent for Procedure/Surgery [id number] #1.00CD:127 [facility] Consent for Procedure/Surgery [id number] #1.00CD:127 [facility] Consent for Procedure/Surgery [id number] #1.00CD:127 [facility] Comment on above: Other Comment: WRONG FOLDER Lab Reportson 01-15-2023 Lab Reports [id number] #1.00CD:127 [facility] CNOVon 01-14-2023 CNOV Office Visit ([facility]) KENNEDY KONG ([id number]) 1935 M Date Time Provider Department 01/14/23 3:00 PM AVEL CAMACHO [facility] During your visit today, we recorded [...] No Drains: No Referring Provider: AVEL CAMACHO [[id number]] Allergies As of Date: 01/14/2023 Noted Allergy Reaction AMOXICILLIN 04/28/2013 14 - Other: See Comments Comments: Pt gets sores in mouth Date Reviewed: 01/14/2023 Reviewed by: Micaela Henderson MA - Fully Assessed Reason for Visit: Established Patient Follow-Up [[id number]] Cmt: Reoccuring bowel blockage Primary Visit Diagnosis:Irregular [...] Status:Closed by AVEL CAMACHO on 01/17/23 Normal [facility] Operative Reporton Operative Report [id number] 1.00CD:127 Normal [facility] Operative Reporton Operative Report [id number] #1.00CD:127 Normal [facility] CBC AUTO DIFFon 12-27-2022 BASO # 0.0 103/ul Normal 0.0-0.1 [facility] Comment on above: Performed By: #### C BC ####[facility] [address] [place] [address]Dr. Cipriano Patton Basophils/100 WBC (Bld) 0.6 % Normal 0.2-2.0 [facility] Comment on above: Performed By: #### C BC ####[facility] [address] [place], [place] [address]Dr. Cipriano Patton EO # 0.5 103/ul Normal 0.0-0.7 [facility] Comment on above: Performed By: #### C BC ####[facility] [address] [place], [place] [address]Dr. Cipriano Patton Eosinophils/100 WBC (Bld) 7.0 % Normal 0.9-7.0 [facility] Comment on above: Performed By: #### C BC ####[facility] [address] [place], [place] [address]Dr. Cipriano Patton Erythrocyte distribution width (RBC) [Ratio] 13.6 % Normal 11.0-15.0 [facility] Comment on above: Performed By: #### C BC ####[facility] [address] [place], [place] [address]Dr. Cipriano Patton Hematocrit (Bld) [Volume fraction] 41.9 % Critically low 42.0-54.0 [facility] Comment on above: Performed By: #### C BC ####[facility] [address] [place], [place] [address]Dr. Cipriano Patton Hemoglobin (Bld) [Mass/Vol] 13.7 g/dL Critically low 14.0-18.0 [facility] Comment on above: Performed By: #### C BC ####[facility] [address] [place] [id number]. Cipriano Patton IG # 0.01 10e3/ul Normal 0.00-0.03 [facility] Comment on above: Performed By: #### C BC ####[facility] [address] [place] [id number]. Cipriano Patton IG % 0.2 % Normal 0.0-0.5 [facility] Comment on above: Performed By: #### C BC ####[facility] [address] [place] [address]Dr. Cipriano Patton LYMPH # 1.3 103/ul Normal 1.2-3.8 [facility] Comment on above: Performed By: #### C BC ####[facility] [address] [place] [address]Dr. Carolejennifer Patton Lymphocytes/100 WBC (Bld) 19.5 % Critically low 20.5-60.0 [facility] Comment on above: Performed By: #### C BC ####[facility] [address] [place], [place] [address]Dr. Cipriano Abdi MANUAL DIFF REQ NO Normal [facility] Comment on above: Performed By: #### C BC ####[facility] [address] [place] [address]Dr. Cipriano Patton MCH (RBC) [Entitic mass] 29.4 pg Normal 25.9-34.0 [facility] Comment on above: Performed By: #### C BC ####[facility] [address] [place] [address]Dr. Cipriano Patton MCHC (RBC) [Mass/Vol] 32.7 g/dL Normal 29.9-35.2 [facility] Comment on above: Performed By: #### C BC ####[facility] [address] [place], [place] [address]Dr. Cipriano Patton MCV (RBC) [Entitic vol] 89.9 fL Normal 80.0-94.0 [facility] Comment on above: Performed By: #### C BC ####[facility] [address] [place] [id number]. Cipriano Patton MONO # 0.9 103/ul Critically high 0.3-0.8 [facility] Comment on above: Performed By: #### C BC ####[facility] [address] [place] [id number]. Cipriano Patton Monocytes/100 WBC (Bld) 14.7 % Critically high 1.7-12.0 [facility] Comment on above: Performed By: #### C BC ####[facility] [address] [place] [id number]. Cipriano Patton NEUT # 3.7 103/ul Normal 1.4-6.5 [facility] Comment on above: Performed By: #### C BC ####[facility] [address] [place] [id number]. Cipriano Patton Neutrophils/100 WBC (Bld) 58.0 % Normal 43.0-75.0 [facility] Comment on above: Performed By: #### C BC ####[facility] [address] [place] [id number]. Cipriano Patton Platelet mean volume (Bld) [Entitic vol] 8.5 fL Critically low 9.5-13.5 [facility] Comment on above: Performed By: #### C BC ####[facility] [address] [place] [id number]. Cipriano Patton PLT 215 103/ul Normal 150-450 [facility] Comment on above: Performed By: #### C BC ####[facility] [address] [place] [id number]. Cipriano Patton RBC 4.66 106/ul Critically low 4.70-6.10 [facility] Comment on above: Performed By: #### C BC ####[facility] Yf[address] [place] [id number]. Cipriano Patton WBC 6.4 103/ul Normal 4.0-11.0 [facility] Comment on above: Performed By: #### C BC ####[facility] C[address]wsyb[address] [place] [id number]. Cipriano Patton Complete Blood Count and Dif marci 12-27-2022 Anisocytosis Ql (Bld) [facility] [place] Other Basophilic stippling LM Ql (Bld) [facility] [place] Other RBC morphology finding Nom (Bld) [facility] [place] Other Complete Blood Count and Diff [facility] [place] Other FERRITINon 12-27-2022 Ferritin [Mass/Vol] 130.0 ng/mL Normal 26.0-388.0 [facility] Comment on above: Performed By: #### F ERR, FETIBC, B12FOL ####[facility] [address] [place], [place] [address]Dr. Cipriano Patton IRON AND TIBCon 12-27-2022 Iron [Mass/Vol] 91.4027865 ug/dL 65.0-175 .0 ug/dL [facility] [place] Other IRON AND TIBC 257.0 ug/dL 250.0-450.0 ug/dL [facility] [place] Other IRON AND TIBC 35.4 % [facility] [place] Other IRON AND TIBC see note [facility] [place] Other % SATURATION 35.4 % Normal [facility] Comment on above: Performed By: #### F ERR, FETIBC, B12FOL ####[facility] [address] [place] [address]Dr. Cipriano Patton Iron [Mass/Vol] 91.0 ug/dL Normal 65.0-175.0 [facility] Comment on above: Performed By: #### F ERR, FETIBC, B12FOL ####[facility] [address] [place] [address]Dr. Cipriano Patton TIBC DIRECT 257.0 ug/dL Normal 250.0-450.0 [facility] Comment on above: Performed By: #### F ERR, FETIBC, B12FOL ####[facility] [address] [place], [place] [address]Al. Cipriano Patton VIT B12 AND FOLATEon 023 Cobalamin (Vitamin B12) [Mass/Vol] 629.0406219 pg/mL 193.0-986.0 pg/mL [facility] [place] Other VIT B12 AND FOLATE 27.50 ng/mL 8.60-58.9 0 ng/mL [facility] Other Cobalamin (Vitamin B12) [Mass/Vol] 628.0 pg/mL Normal 193.0-986.0 [facility] Comment on above: Performed By: #### F ERR, FETIBC, B12FOL ####[facility] [address] [place], [place] [address]DrWesley Patton FOLATE 27.50 ng/mL Normal 8.60-58.90 [facility] Comment on above: Performed By: #### Luis M ERR, FETIBC, B12FOL ####[facility] [address] [place], [place] [address]Dr. Cipriano Patton CBC,PLATELETSon 11-05-2022 Hematocrit (Bld) [Volume fraction] 40.7 % Normal 39.6-48.8 [facility] Comment on above: Performed By: #### ARCHIE GREENE, CHM7 #### Ricarda [facility] [facility] [address] [address] Hemoglobin (Bld) [Mass/Vol] 13.5 g/dL Normal 13.4-16.8 [facility] Comment on above: Performed By: #### ARCHIE GREENE, CHM7 #### [facility] (DEFAULT) [address] [place] [address] 09248 MCV (RBC) [Entitic vol] 89.1 fL Normal 79.0-94.5 [facility] Comment on above: Performed By: #### ARCHIE GREENE, CHM7 #### U [facility] (DEFAULT) [address] [place] [address] 30883 Mean Cell Hgb 29.5 pg Normal 26.1-33.3 [facility] Comment on above: Performed By: #### M GO, HFP, CHM7 #### U [facility] (DEFAULT) [address] [place] [address] 94136 Mean Cell Hgb Conc 33.2 g/dL Normal 31.9-36.5 [facility] Comment on above: Performed By: #### M GO, HFP, CHM7 #### U [facility] (DEFAULT) [address] [place] [address] 95558 Platelet mean volume (Bld) [Entitic vol] 9.1 fL Normal 8.7-12.3 [facility] Comment on above: Performed By: #### M GO, HFP, CHM7 #### U [facility] (DEFAULT) [address] [place] [address] 97604 Platelets (Bld) [#/Vol] 209 10*3/uL Normal 146-337 [facility] Comment on above: Performed By: #### M GO, HFP, CHM7 #### U [facility] (DEFAULT) [address] [place] [address] 65119 RBC (Bld) [#/Vol] 4.57 10*6/uL Normal 4.38-5.83 [facility] Comment on above: Performed By: #### M GO, HFP, CHM7 #### [facility] (DEFAULT) [address] [place] [address] 75093 RBC Distribution 12.9 % Normal 10.9-14.3 [facility] Comment on above: Performed By: #### M GO, HFP, CHM7 #### U [facility] (DEFAULT) [address] [place] [address] 05070 WBC (Bld) [#/Vol] 6.15 10*3/uL Normal 3.73-10.10 [facility] Comment on above: Performed By: #### M GO, HFP, CHM7 #### U [facility] (DEFAULT) [address] [place] [address] 01118 CHEM 7 (LYTES,BUN,CREA,GLUC) on 11-05-2022 Anion gap [Moles/Vol] 15 mmol/L Normal 7-17 [facility] Comment on above: Performed By: #### ARCHIE GREENE, CHM7 #### [facility] (DEFAULT) [address] [place] [address] 50778 Chloride [Moles/Vol] 105 mmol/L Normal 98-108 [facility] Comment on above: Performed By: #### ARCHIE GREENE, CHM7 #### [facility] (DEFAULT) [address] [place] [address] 79757 CO2 [Moles/Vol] 22 mmol/L Normal 21-31 [facility] Comment on above: Performed By: #### ARCHIE GREENE, CHM7 #### U [facility] (DEFAULT) [address] [place] [address] 58760 Creatinine [Mass/Vol] 1.05 mg/dL Normal 0.70-1.30 [facility] Comment on above: Performed By: #### ARCHIE GREENE, CHM7 #### U [facility] (DEFAULT) [address] [place] [address] 49045 GFR/1.73 sq M.predicted among non-blacks MDRD (S/P/Bld) [Vol rate/Area] 69 mL/min/{1.73_m2} Normal >=60 [facility] Comment on above: Result Comment: Repo rted eGFR is based on the CKD-EPI 2020 equation using creatinine, age, and sex. Performed By: #### ARCHIE GREENE, CHM7 #### [facility] (DEFAULT) [address] [place] [address] 33030 Glucose [Mass/Vol] 68 mg/dL Low 70-99 [facility] Comment on above: Performed By: #### ARCHIE GREENE, CHM7 #### [facility] (DEFAULT) [address] [place] [address] 56227 Osmolality [Osmolality] 289 mosm/kg Normal 278-305 [facility] Comment on above: Performed By: #### M GO, HFP, CHM7 #### [facility] (DEFAULT) [address] [place] [address] 83535 Potassium [Moles/Vol] 4.2 mmol/L Normal 3.5-5.0 [facility] Comment on above: Performed By: #### M GO, HFP, CHM7 #### [facility] (DEFAULT) [address] [place] [address] 62410 Sodium [Moles/Vol] 138 mmol/L Normal 135-145 [facility] Comment on above: Performed By: #### M GO, HFP, CHM7 #### [facility] (DEFAULT) [address] [place] [address] 60187 Urea nitrogen [Mass/Vol] 17 mg/dL Normal 7-25 [facility] Comment on above: Performed By: #### M GO, HFP, CHM7 #### [facility] (DEFAULT) [address] [place] [address] 53793 Urea nitrogen/Creatinine [Mass ratio] 16 mg/mg Normal [facility] Comment on above: Performed By: #### M GO, HFP, CHM7 #### U [facility] (DEFAULT) [address] [place] [address] 38294 HEPATIC FUNCTION PANELon Albumin [Mass/Vol] 3.4 g/dL Low 3.5-5.0 [facility] Comment on above: Performed By: #### M GO, HFP, CHM7 #### [facility] (DEFAULT) [address] [place] [address] 55070 ALP [Catalytic activity/Vol] 47 U/L Normal 32-126 [facility] Comment on above: Performed By: #### M GO, HFP, CHM7 #### [facility] (DEFAULT) [address] [place] [address] 75824 ALT [Catalytic activity/Vol] 6 U/L Low 10-52 [facility] Comment on above: Performed By: #### M ARCHIE BIRMINGHAM, CHM7 #### [facility] (DEFAULT) [address] [place] [address] 9[address]55 AST [Catalytic activity/Vol] 14 U/L Normal 10-39 [facility] Comment on above: Performed By: #### Dinora BIRMINGHAM HFP, CHM7 #### [facility] (DEFAULT) [address] [place] [address] 7[address]38 Bilirubin [Mass/Vol] 0.7 mg/dL Normal <1.5 [facility] Comment on above: Performed By: #### ARCIHE GREENE, CHM7 #### [facility] (DEFAULT) [address] [place] [address] 16616 Bilirubin.indirect [Mass/Vol] 0.1 mg/dL Normal <0.3 [facility] Comment on above: Performed By: #### ARCHIE GREENE, CHM7 #### [facility] (DEFAULT) [address] [place] [address] 28126 Protein [Mass/Vol] 5.9 g/dL Low 6.4-8.3 [facility] Comment on above: Performed By: #### ARCHIE GREENE, CHM7 #### [facility] (DEFAULT) [address] [place] [address] MAGNESIUMon 11-05-2022 Magnesium [Mass/Vol] 1.9 mg/dL Normal 1.6-2.6 [facility] Comment on above: Performed By: #### M ARCHIE BIRMINGHAM, CHM7 #### [facility] (DEFAULT) [address] [place] [address] PT,INR,PTTon 11-05-2022 aPTT Coag (Bld) [Time] 33.6 s Normal 24.0-34.3 [facility] Comment on above: Performed By: #### Dinora BIRMINGHAM HFP, CHM7 #### [facility] (DEFAULT) [address] [place] [address] 45114 INR Coag (PPP) [Relative time] 1.2 {INR} High 0.9-1.1 [facility] Comment on above: Performed By: #### M ARCHIE [place]IRMING[place], RENY7 #### [facility] (DEFAULT) [address] [address] PT Coag (PPP) [Time] 14.8 s High 11.9-14.2 [facility] Comment on above: Performed By: #### ARCHIE GREENE CHM7 #### [facility] (DEFAULT) [address] [address] CBC,PLATELETSon 11-04-2022 Hematocrit (Bld) [Volume fraction] 37.3 % Low 39.6-48.8 [facility] Comment on above: Performed By: #### H EMOGC #### U [facility] (DEFAULT) [address] [address] Hemoglobin (Bld) [Mass/Vol] 12.5 g/dL Low 13.4-16.8 [facility] Comment on above: Performed By: #### H EMOGC #### [facility] (DEFAULT) [address] [address] MCV (RBC) [Entitic vol] 88.4 fL Normal 79.0-94.5 [facility] Comment on above: Performed By: #### H EMOGC #### [facility] (DEFAULT) [address] [place] [address]998 Mean Cell Hgb 29.6 pg Normal 26.1-33.3 [facility] Comment on above: Performed By: #### H EMOGC #### [facility] (DEFAULT) [address] [address] Mean Cell Hgb Conc 33.5 g/dL Normal 31.9-36.5 [facility] Comment on above: Performed By: #### H EMOGC #### [facility] (DEFAULT) [address] [place] [address]2012 Platelet mean volume (Bld) [Entitic vol] 9.0 fL Normal 8.7-12.3 [facility] Comment on above: Performed By: #### H EMOGC #### [facility] (DEFAULT) [address] [place] [address]84 Platelets (Bld) [#/Vol] 198 10*3/uL Normal 146-337 [facility] Comment on above: Performed By: #### H EMOGC #### [facility] (DEFAULT) [address] [place] [address] 11293 RBC (Bld) [#/Vol] 4.22 10*6/uL Low 4.38-5.83 [facility] Comment on above: Performed By: #### H EMOGC #### [facility] (DEFAULT) [address] [place] [address] 20976 RBC Distribution 12.9 % Normal 10.9-14.3 [facility] Comment on above: Performed By: #### H EMOGC #### [facility] (DEFAULT) [address] [place] [address]292 WBC (Bld) [#/Vol] 5.77 10*3/uL Normal 3.73-10.10 [facility] Comment on above: Performed By: #### H EMOGC #### [facility] (DEFAULT) [address] [place] [address] CHEM 7 (LYTES,BUN,CREA,GLUC) on 11-04-2022 Anion gap [Moles/Vol] 10 mmol/L Normal 7-17 [facility] Comment on above: Performed By: #### M GO, HFP, CHM7 #### [facility] (DEFAULT) [address] [place] [address] 16931 Chloride [Moles/Vol] 108 mmol/L Normal 98-108 [facility] Comment on above: Performed By: #### M GO, HFP, CHM7 #### [facility] (DEFAULT) [address] [place] [address] 14740 CO2 [Moles/Vol] 22 mmol/L Normal 21-31 [facility] Comment on above: Performed By: #### ARCHIE GREENE CHM7 #### [facility] (DEFAULT) [address] [place] [address] 23118 Creatinine [Mass/Vol] 0.91 mg/dL Normal 0.70-1.30 [facility] Comment on above: Performed By: #### ARCHIE GREENE CHM7 #### [facility] (DEFAULT) [address] [place] [address] 66774 GFR/1.73 sq M.predicted among non-blacks MDRD (S/P/Bld) [Vol rate/Area] 82 mL/min/{1.73_m2} Normal >=60 [facility] Comment on above: Result Comment: Repo rted eGFR is based on the CKD-EPI 2020 equation using creatinine, age, and sex. Performed By: #### ARCHIE GREENE CHM7 #### [facility] (DEFAULT) [address] [place] [address]113 Glucose [Mass/Vol] 81 mg/dL Normal 70-99 [facility] Comment on above: Performed By: #### ARCHIE GREENE CHM7 #### [facility] (DEFAULT) [address] [place] [address] 29430 Osmolality [Osmolality] 285 mosm/kg Normal 278-305 [facility] Comment on above: Performed By: #### ARCHIE GREENE CHM7 #### [facility] (DEFAULT) [address] [place] [address] 91363 Potassium [Moles/Vol] 4.0 mmol/L Normal 3.5-5.0 [facility] Comment on above: Performed By: #### ARCHIE GREENE, CHM7 #### [facility] (DEFAULT) [address] [place] [address] 50814 Sodium [Moles/Vol] 136 mmol/L Normal 135-145 [facility] Comment on above: Performed By: #### ARCHIE GREENE, CHM7 #### [facility] (DEFAULT) [address] [place] [address] Urea nitrogen [Mass/Vol] 15 mg/dL Normal 7-25 [facility] Comment on above: Performed By: #### M GO, HFP, CHM7 #### [facility] (DEFAULT) [address] [place] [address] Urea nitrogen/Creatinine [Mass ratio] 16 mg/mg Normal [facility] Comment on above: Performed By: #### M GO, HFP, CHM7 #### [facility] (DEFAULT) [address] [place] [address] CT ABDOMEN/ABDOMEN-PELVIS (I NTERPRETATION - OUTSIDE IMAGE)on 11-04-2022 CT ABDOMEN/ABDOMEN-PELVIS (INTERPRETATION - OUTSIDE IMAGE) EXAM: CT ABDOMEN/ABDOMEN-PELV IS (INTERPRETATION - OUTSIDE IMAGE), 11/04/2022 10:11 AM DATE- OUTSIDE STUDY PERFORMED: November 03, 2022 COMPARISON: No prior studies available for comparison. CLINICAL INDICATIONS: Reason for Exam:->87 year old w/ hx colon cancer s/p resection. Admitted for abdominal pain, constipation. Requesting read of OSH images to r/o obstruction/volvulus . DISCLAIMER: This is an interpretation of images [...] granulomas. Pancreas: Normal. Adrenals: Normal. Kidneys: Normal. Retroperitoneal/Vasc ulature: No enlarged lymph nodes. Few surgical clips in the retroperitoneum along the left psoas muscle. Mild atherosclerotic calcification of the abdominal aorta. Major branch vessels are patent. The portal, splenic, and superior mesenteric veins are patent. Gastrointestinal/Mes entery: Rectal anastomosis without appreciable recurrent mass. No [...] disease in the abdomen or pelvis. Normal [facility] CT Abdomen and Pelvison 10-21 IMPRESSION: 1. Suspect early/partial small bowel obstruction versus ileus. A transition point is not clearly visible. Small right femoral hernia with a few small bowel loops does not appear to be a site of obstruction. 2. 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 No findings of metastatic disease in the abdomen or pelvis. OLOGY EXAM: CT ABDOMEN/ABDOMEN-PELV IS (INTERPRETATION - OUTSIDE IMAGE), 11/04/2022 10:11 AM DATE- OUTSIDE STUDY PERFORMED: November 03, 2022 COMPARISON: No prior studies available for comparison. CLINICAL INDICATIONS: Reason for Exam:->87 year old w/ hx colon cancer s/p resection. Admitted for abdominal pain, constipation. Requesting read of OSH images to r/o obstruction/volvulus . DISCLAIMER: This is an interpretation of images [...] granulomas. Pancreas: Normal. Adrenals: Normal. Kidneys: Normal. Retroperitoneal/Vasc ulature: No enlarged lymph nodes. Few surgical clips in the retroperitoneum along the left psoas muscle. Mild atherosclerotic calcification of the abdominal aorta. Major branch vessels are patent. The portal, splenic, and superior mesenteric veins are patent. Gastrointestinal/Mes entery: Rectal anastomosis without appreciable recurrent mass. No [...] Samantha Saldaña MD - 11/04/2022 EXAM: CT ABDOMEN/ABDOMEN-PELV IS (INTERPRETATION - OUTSIDE IMAGE), 11/04/2022 10:11 AM DATE- OUTSIDE STUDY PERFORMED: November 03, 2022 COMPARISON: No prior studies available for comparison. CLINICAL INDICATIONS: Reason for Exam:->87 year old w/ hx colon cancer s/p resection. Admitted for abdominal pain, constipation. Requesting read of OSH images to r/o obstruction/volvulus . DISCLAIMER: This is an interpretation of images [...] granulomas. Pancreas: Normal. Adrenals: Normal. Kidneys: Normal. Retroperitoneal/Vasc ulature: No enlarged lymph nodes. Few surgical clips in the retroperitoneum along the left psoas muscle. Mild atherosclerotic calcification of the abdominal aorta. Major branch vessels are patent. The portal, splenic, and superior mesenteric veins are patent. Gastrointestinal/Mes entery: Rectal anastomosis without appreciable recurrent mass. No [...] metastatic disease in the abdomen or pelvis. [facility] Radiology Study observation (narrative) [facility] CT Abdomen and PelvisOrdered By: Samantha Saldaña on 11-04-2022 [facility] Work Phone: HEPATIC FUNCTION PANELon Albumin [Mass/Vol] 3.2 g/dL Low 3.5-5.0 [facility] Comment on above: Performed By: #### M GO, HFP, CHM7 #### [facility] (DEFAULT) [address] [place] [address] 27233 ALP [Catalytic activity/Vol] 41 U/L Normal 32-126 [facility] Comment on above: Performed By: #### ARCHIE GREENE, CHM7 #### [facility] (DEFAULT) [address] [place] [address] 11432 ALT [Catalytic activity/Vol] 7 U/L Low 10-52 [facility] Comment on above: Performed By: #### M ARCHIE BIRMING[place], CHM7 #### [facility] (DEFAULT) [address] [place] [address] 00653 AST [Catalytic activity/Vol] 13 U/L Normal 10-39 [facility] Comment on above: Performed By: #### ARCHIE GREENE, CHM7 #### [facility] (DEFAULT) [address] [place] [address] 76543 Bilirubin [Mass/Vol] 0.6 mg/dL Normal <1.5 [facility] Comment on above: Performed By: #### ARCHIE GREENE, CHM7 #### [facility] (DEFAULT) [address] [place] [address] 20276 Bilirubin.indirect [Mass/Vol] 0.1 mg/dL Normal <0.3 [facility] Comment on above: Performed By: #### ARCHIE GREENE, CHM7 #### [facility] (DEFAULT) [address] [place] [address] 84151 Protein [Mass/Vol] 5.6 g/dL Low 6.4-8.3 [facility] Comment on above: Result Comment: Resu lts inconsistent with previous results Performed By: #### ARCHIE GREENE, CHM7 #### [facility] (DEFAULT) [address] [place] [address] 64143 MAGNESIUMon 11-04-2022 Magnesium [Mass/Vol] 1.8 mg/dL Normal 1.6-2.6 [facility] Comment on above: Performed By: #### M ARCHIE BIRMING[place], CHM7 #### [facility] (DEFAULT) [address] [place] [address] 47220 PT,INR,PTTon 11-04-2022 aPTT Coag (Bld) [Time] 31.9 s Normal 24.0-34.3 [facility] Comment on above: Performed By: #### P TPTT #### [facility] (DEFAULT) [address] [place] [address] 62081 INR Coag (PPP) [Relative time] 1.1 {INR} Normal 0.9-1.1 [facility] Comment on above: Performed By: #### P TPTT #### [facility] (DEFAULT) [address] [place] [address] 15353 PT Coag (PPP) [Time] 14.3 s High 11.9-14.2 [facility] Comment on above: Performed By: #### P TPTT #### [facility] (DEFAULT) [address] [place] [address] 49747 CALCIUMon 11-03-2022 Calcium [Mass/Vol] 9.4 mg/dL Normal 8.6-10.5 [facility] Comment on above: Performed By: #### M ARCHIE BIRMING[place], CHM7 #### [facility] (DEFAULT) [address] [place] [address] 58103 CBC AND ELECTRONIC DIFFon Abs Baso Auto < Normal 0.00-0.09 [facility] Comment on above: Performed By: #### L [id number] #### [facility] (DEFAULT) [address] [place] [address] 52391 Basophils/100 WBC (Bld) 0.2 % Normal [facility] Comment on above: Performed By: #### L [id number] #### [facility] (DEFAULT) [address] [place] [address] 36087 DIFF STATUS Electronic Differential Normal [facility] Comment on above: Performed By: #### L [id number] #### [facility] (DEFAULT) [address] [address] Eosinophils (Bld) [#/Vol] 0.25 10*3/uL Normal 0.00-0.48 [facility] Comment on above: Performed By: #### L [id number] #### [facility] (DEFAULT) [address] [address] Eosinophils/100 WBC (Bld) 3.0 % Normal [facility] Comment on above: Performed By: #### L [id number] #### [facility] (DEFAULT) [address] [address] Hematocrit (Bld) [Volume fraction] 43.6 % Normal 39.6-48.8 [facility] Comment on above: Performed By: #### L [id number] #### [facility] (DEFAULT) [address] [address] Hemoglobin (Bld) [Mass/Vol] 14.5 g/dL Normal 13.4-16.8 [facility] Comment on above: Performed By: #### L [id number] #### [facility] (DEFAULT) [address] [address] Immature Grans % 0.2 % Normal [facility] Comment on above: Performed By: #### L [id number] #### [facility] (DEFAULT) [address] [address] Immature Grans Absolute < Normal <=0.07 [facility] Comment on above: Performed By: #### L [id number] #### [facility] (DEFAULT) [address] [address] Lymphocytes (Bld) [#/Vol] 1.05 10*3/uL Normal 0.83-3.57 [facility] Comment on above: Performed By: #### L [id number] #### [facility] (DEFAULT) [address] [address]259 Lymphocytes/100 WBC (Bld) 12.5 % Normal [facility] Comment on above: Performed By: #### L [id number] #### [facility] (DEFAULT) [address] [address] MCV (RBC) [Entitic vol] 89.0 fL Normal 79.0-94.5 [facility] Comment on above: Performed By: #### L [id number] #### [facility] (DEFAULT) [address] [address] Mean Cell Hgb 29.6 pg Normal 26.1-33.3 [facility] Comment on above: Performed By: #### L [id number] #### [facility] (DEFAULT) [address] [address] Mean Cell Hgb Conc 33.3 g/dL Normal 31.9-36.5 [facility] Comment on above: Performed By: #### L [id number] #### [facility] (DEFAULT) [address] [address] Monocytes (Bld) [#/Vol] 1.15 10*3/uL High 0.24-0.93 [facility] Comment on above: Performed By: #### L [id number] #### [facility] (DEFAULT) [address] [address] Monocytes/100 WBC (Bld) 13.7 % Normal [facility] Comment on above: Performed By: #### L [id number] #### [facility] (DEFAULT) [address] [address] Nucleated RBC 0.0 /100 WBC Normal <=0.2 [facility] Comment on above: Performed By: #### L [id number] #### [facility] (DEFAULT) [address] [address] Platelet mean volume (Bld) [Entitic vol] 8.8 fL Normal 8.7-12.3 [facility] Comment on above: Performed By: #### L [id number] #### [facility] (DEFAULT) [address] [place] [address] 08733 Platelets (Bld) [#/Vol] 223 10*3/uL Normal 146-337 [facility] Comment on above: Performed By: #### L [id number] #### [facility] (DEFAULT) [address] [place] [address] 36584 RBC (Bld) [#/Vol] 4.90 10*6/uL Normal 4.38-5.83 [facility] Comment on above: Performed By: #### L [id number] #### [facility] (DEFAULT) [address] [place] [address] 08874 RBC Distribution 12.9 % Normal 10.9-14.3 [facility] Comment on above: Performed By: #### L [id number] #### [facility] (DEFAULT) [address] [place] [address] 13635 Segs + Bands Auto 70.4 % Normal [facility] Comment on above: Performed By: #### L [id number] #### [facility] (DEFAULT) [address] [place] [address] 95424 Segs + Bands,Absolute Auto 5.91 K/uL Normal 1.57-6.19 [facility] Comment on above: Performed By: #### L [id number] #### [facility] (DEFAULT) [address] [place] [address] 99285 WBC (Bld) [#/Vol] 8.40 10*3/uL Normal 3.73-10.10 [facility] Comment on above: Performed By: #### L [id number] #### [facility] (DEFAULT) [address] [address] CBC AUTO DIFFon 11-03-2022 BASO # 0.0 103/ul Normal 0.0-0.1 [facility] Comment on above: Performed By: #### C BC #### [facility] [address] [place], [place] [address] Dr. Cipriano Patton Basophils/100 WBC (Bld) 0.3 % Normal 0.2-2.0 [facility] Comment on above: Performed By: #### C BC #### [facility] [address] [place] [address] Dr. Cipriano Patton EO # 0.3 103/ul Normal 0.0-0.7 [facility] Comment on above: Performed By: #### C BC #### [facility] [address] [place] [address] Dr. Cipriano Patton Eosinophils/100 WBC (Bld) 4.0 % Normal 0.9-7.0 [facility] Comment on above: Performed By: #### C BC #### [facility] [address] [place] [address] Dr. Cipriano Patton Erythrocyte distribution width (RBC) [Ratio] 13.1 % Normal 11.0-15.0 [facility] Comment on above: Performed By: #### C BC #### [facility] [address] [place] [address] Dr. Cipriano Patton Hematocrit (Bld) [Volume fraction] 41.6 % Critically low 42.0-54.0 [facility] Comment on above: Performed By: #### C BC #### [facility] [address] [place] [address] Dr. Cipriano Patton Hemoglobin (Bld) [Mass/Vol] 14.1 g/dL Normal 14.0-18.0 [facility] Comment on above: Performed By: #### C BC #### [facility] [address] [place] [address] Dr. Cipriano Patton IG # 0.02 10e3/ul Normal 0.00-0.03 [facility] Comment on above: Performed By: #### C BC #### [facility] [address] [place] [address] Dr. Cipriano Patton IG % 0.3 % Normal 0.0-0.5 [facility] Comment on above: Performed By: #### C BC #### [facility] [address] [place] [address] Dr. Cipriano Patton LYMPH # 1.0 103/ul Critically low 1.2-3.8 [facility] Comment on above: Performed By: #### C BC #### [facility] [address] [address] [address] Cipriano Patton Lymphocytes/100 WBC (Bld) 13.0 % Critically low 20.5-60.0 [facility] Comment on above: Performed By: #### C BC #### [facility] [address] [place] [address] Dr. Cipriano Patton MANUAL DIFF REQ NO Normal [facility] Comment on above: Performed By: #### C BC #### [facility] [address] [place] [address] Dr. Cipriano Patton MCH (RBC) [Entitic mass] 29.6 pg Normal 25.9-34.0 [facility] Comment on above: Performed By: #### C BC #### [facility] [address] [place] [address] Dr. Cipriano Patton MCHC (RBC) [Mass/Vol] 33.9 g/dL Normal 29.9-35.2 [facility] Comment on above: Performed By: #### C BC #### [facility] [address] [place] [address] Dr. Cipriano Patton MCV (RBC) [Entitic vol] 87.2 fL Normal 80.0-94.0 [facility] Comment on above: Performed By: #### C BC #### [facility] [address] [place] [address] Dr. Cipriano Patton MONO # 0.9 103/ul Critically high 0.3-0.8 [facility] Comment on above: Performed By: #### C BC #### [facility] [address] [place] [address] Dr. Cipriano Patton Monocytes/100 WBC (Bld) 12.9 % Critically high 1.7-12.0 [facility] Comment on above: Performed By: #### C BC #### [facility] [address] [place] [address] Dr. Cipriano Patton NEUT # 5.1 103/ul Normal 1.4-6.5 [facility] Comment on above: Performed By: #### C BC #### [facility] [address] [address] [address] Cipriano Patton Neutrophils/100 WBC (Bld) 69.5 % Normal 43.0-75.0 [facility] Comment on above: Performed By: #### C BC #### [facility] [address] [address] [address] Cipriano Patton Platelet mean volume (Bld) [Entitic vol] 8.7 fL Critically low 9.5-13.5 [facility] Comment on above: Performed By: #### C BC #### [facility] [address] [address] [address] Cipriano Patton PLT 216 103/ul Normal 150-450 [facility] Comment on above: Performed By: #### C BC #### [facility] [address] [place] [address] Dr. Cipriano Patton RBC 4.77 106/ul Normal 4.70-6.10 [facility] Comment on above: Performed By: #### C BC #### [facility] [address] [address] [address] Cipriano Patton WBC 7.3 103/ul Normal 4.0-11.0 [facility] Comment on above: Performed By: #### C BC #### [facility] [address] [address] [address] Cipriano Patton CHM 7 - EDon 11-03-2022 Anion gap [Moles/Vol] 11 mmol/L Normal 7-17 [facility] Comment on above: Performed By: #### M ARCHIE [place], CHM7 #### [facility] (DEFAULT) [address] [address] Chloride [Moles/Vol] 105 mmol/L Normal 98-108 [facility] Comment on above: Performed By: #### M ARCHIE [place], CHM7 #### [facility] (DEFAULT) [address] [address] CO2 [Moles/Vol] 27 mmol/L Normal 21-31 [facility] Comment on above: Performed By: #### ARCHIE GREENE CHM7 #### [facility] (DEFAULT) [address] [place] [address] Creatinine [Mass/Vol] 1.02 mg/dL Normal 0.70-1.30 [facility] Comment on above: Performed By: #### ARCHIE GREENE CHM7 #### [facility] (DEFAULT) [address] [place] [address] GFR/1.73 sq M.predicted among non-blacks MDRD (S/P/Bld) [Vol rate/Area] 72 mL/min/{1.73_m2} Normal >=60 [facility] Comment on above: Result Comment: Repo rted eGFR is based on the CKD-EPI 2020 equation using creatinine, age, and sex. Performed By: #### ARCHIE GREENE CHM7 #### [facility] (DEFAULT) [address] [place] [address] Glucose [Mass/Vol] 97 mg/dL Normal 70-99 [facility] Comment on above: Performed By: #### ARCHIE GREENE CHM7 #### [facility] (DEFAULT) [address] [place] [address] Osmolality [Osmolality] 291 mosm/kg Normal 278-305 [facility] Comment on above: Performed By: #### ARCHIE GREENE CHM7 #### Ricarda [facility] (DEFAULT) [address] [place] [address] Potassium [Moles/Vol] 4.6 mmol/L Normal 3.5-5.0 [facility] Comment on above: Performed By: #### ARCHIE GREENE CHM7 #### [facility] (DEFAULT) [address] [place] [address] Sodium [Moles/Vol] 138 mmol/L Normal 135-145 [facility] Comment on above: Performed By: #### ARCHIE GREENE CHM7 #### [facility] (DEFAULT) [address] [place] [address] Urea nitrogen [Mass/Vol] 16 mg/dL Normal 7-25 [facility] Comment on above: Performed By: #### M VALENCIA, [facility], CHM7 #### [facility] (DEFAULT) [address] [place] [address] Urea nitrogen/Creatinine [Mass ratio] 16 mg/mg Normal [facility] Comment on above: Performed By: #### M VALENCIA, [facility], CHM7 #### [facility] (DEFAULT) [address] [place] [address] CT ABD/PELV W CONon 11-03-19 CT ABD/PELV [...] ANKIT DANIEL Date: 2022-11-03 11:55 Normal [facility] HEPATIC FUNCTION PANELon Albumin [Mass/Vol] 3.9 g/dL Normal 3.5-5.0 [facility] Comment on above: Performed By: #### M VALENCIA, HFP, CHM7 #### [facility] (DEFAULT) [address] [place] [address] ALP [Catalytic activity/Vol] 49 U/L Normal 32-126 [facility] Comment on above: Performed By: #### M VALENCIA, HFP, CHM7 #### [facility] (DEFAULT) [address] [place] [address] ALT [Catalytic activity/Vol] 8 U/L Low 10-52 [facility] Comment on above: Performed By: #### M GO, HFP, CHM7 #### [facility] (DEFAULT) [address] [place] [address] AST [Catalytic activity/Vol] 14 U/L Normal 10-39 [facility] Comment on above: Performed By: #### M GO, HFP, CHM7 #### [facility] (DEFAULT) [address] [place] [address] Bilirubin [Mass/Vol] 0.6 mg/dL Normal <1.5 [facility] Comment on above: Performed By: #### M GO, HFP, CHM7 #### [facility] (DEFAULT) [address] [place] [address] Bilirubin.indirect [Mass/Vol] 0.1 mg/dL Normal <0.3 [facility] Comment on above: Performed By: #### M GO, HFP, CHM7 #### [facility] (DEFAULT) [address] [place] [address] Protein [Mass/Vol] 6.8 g/dL Normal 6.4-8.3 [facility] Comment on above: Performed By: #### M GO, HFP, CHM7 #### [facility] (DEFAULT) [address] [place] [address] LACTATE, WHOLE BLOODon 11-03 Lactate, Whole Blood 1.1 mmol/L Normal 0.5-1.6 [facility] Comment on above: Performed By: #### B GLACT #### [facility] (DEFAULT) [address] [place] [address] LIPASEon 11-03-2022 Lipase [Catalytic activity/Vol] 13 U/L Normal 11-82 [facility] Comment on above: Performed By: #### M ARCHIE [place], CHM7 #### [facility] (DEFAULT) [address] [place] [address] MAGNESIUMon 11-03-2022 Magnesium [Mass/Vol] 2.0 mg/dL Normal 1.6-2.6 [facility] Comment on above: Performed By: #### ARCHIE GREENE, CHM7 #### [facility] (DEFAULT) [address] [place] [address] PHOSPHATE, INORGANICon 11-03 Phosphorous 3.3 mg/dL Normal 2.2-4.6 [facility] Comment on above: Performed By: #### ARCHIE GREENE, CHM7 #### [facility] (DEFAULT) [address] [place] [address] PROF 14(COMP METB)on 023 Albumin [Mass/Vol] 3.4 g/dL Normal 3.4-5.0 [facility] Comment on above: Performed By: #### C MP #### [facility] [address] [place] [address] Dr. Cipriano Patton Albumin/Globulin [Mass ratio] 1.0 {ratio} Normal [facility] Comment on above: Performed By: #### C MP #### [facility] [address] [place] [address] Dr. Cipriano Patton ALP [Catalytic activity/Vol] 53 U/L Normal 46-116 [facility] Comment on above: Performed By: #### C MP #### [facility] [address] [address] [address] Cipriano Patton ALT [Catalytic activity/Vol] 13 U/L Critically low 16-63 [facility] Comment on above: Performed By: #### C MP #### [facility] [address] [place] [address] Dr. Cipriano Patton Anion gap [Moles/Vol] 9.3 mmol/L Normal [facility] Comment on above: Performed By: #### C MP #### [facility] [address] [address] [address] Cipriano Patton AST [Catalytic activity/Vol] 24 U/L Normal 15-37 [facility] Comment on above: Performed By: #### C MP #### [facility] [address] [address] [address] Cipriano Patton Bilirubin [Mass/Vol] 0.5 mg/dL Normal 0.2-1.0 [facility] Comment on above: Performed By: #### C MP #### [facility] [address] [place] [address] Dr. Cipriano Patton Calcium [Mass/Vol] 9.2 mg/dL Normal 8.5-10.1 [facility] Comment on above: Performed By: #### C MP #### [facility] [address] [address] [address] Cipriano Patton Chloride [Moles/Vol] 105 mmol/L Normal 98-107 [facility] Comment on above: Performed By: #### C MP #### [facility] [address] [address] [address] Cipriano Patton CO2 [Moles/Vol] 30.4 mmol/L Normal 21.0-32.0 [facility] Comment on above: Performed By: #### C MP #### [facility] [address] [address] [address] Cipriano Patton Creatinine [Mass/Vol] 1.02 mg/dL Normal 0.70-1.30 [facility] Comment on above: Performed By: #### C MP #### [facility] [address] [address] [address] Cipriano Patton EGFR-AF ANGOLAN >60 Normal >=60 [facility] Comment on above: Performed By: #### C MP #### [facility] [address] [address] [address] Cipriano Patton EGFR-NON AF ANGOLAN >60 Normal >=60 [facility] Comment on above: Performed By: #### C MP #### [facility] [address] [address] [address] Cipriano Patton Globulin (S) [Mass/Vol] 3.3 g/dL Normal [facility] Comment on above: Performed By: #### C MP #### [facility] [address] [address] [address] Cipriano Pattno Glucose [Mass/Vol] 92 mg/dL Normal 74-106 [facility] Comment on above: Performed By: #### C MP #### [facility] [address] [place] [address] Dr. Cipriano Patton Potassium [Moles/Vol] 4.7 mmol/L Normal 3.5-5.1 [facility] Comment on above: Performed By: #### C MP #### [facility] [address] [place] [address] Dr. Cipriano Patton Protein [Mass/Vol] 6.7 g/dL Normal 6.4-8.2 [facility] Comment on above: Performed By: #### C MP #### [facility] [address] [place] [address] Dr. Cipriano Patton Sodium [Moles/Vol] 140 mmol/L Normal 136-145 [facility] Comment on above: Performed By: #### C MP #### [facility] [address] [address] [address] Cipriano Patton Urea nitrogen [Mass/Vol] 18.0 mg/dL Normal 7.0-18.0 [facility] Comment on above: Performed By: #### C MP #### [facility] [address] [place] [address] Dr. Cipriano Patton Urea nitrogen/Creatinine [Mass ratio] 17.6 mg/mg Normal [facility] Comment on above: Performed By: #### C MP #### [facility] [address] [address] [address] Cipriano Patton URINALYSISon 11-03-2022 Appearance (U) Clear Normal Clear [facility] Comment on above: Performed By: #### U RIN #### [facility] (DEFAULT) [address] [place] [address] Bacteria ABSENT Normal ABSENT [facility] Comment on above: Performed By: #### U RIN #### [facility] (DEFAULT) [address] [place] [address] Blood Urine Moderate Abnormal Negative [facility] Comment on above: Performed By: #### U RIN #### [facility] (DEFAULT) [address] [place] [address] Color (U) Yellow Normal Yellow [facility] Comment on above: Performed By: #### U RIN #### [facility] (DEFAULT) [address] [place] [address] Glucose Ql (U) Negative Normal Negative [facility] Comment on above: Performed By: #### U RIN #### [facility] (DEFAULT) [address] [place] [address] Ketones Ql (U) Trace Abnormal Negative [facility] Comment on above: Performed By: #### U RIN #### [facility] (DEFAULT) [address] [place] [address] Leukocyte esterase Test strip Ql (U) Negative Normal Negative [facility] Comment on above: Performed By: #### U RIN #### [facility] (DEFAULT) [address] [place] [address] Nitrites Urine Negative Normal Negative [facility] Comment on above: Performed By: #### U RIN #### [facility] (DEFAULT) [address] [place] [address] pH (U) 5.5 [pH] Normal 5.0-7.0 [facility] Comment on above: Performed By: #### U RIN #### [facility] (DEFAULT) [address] [place] [address] Protein Urine Negative Normal Negative [facility] Comment on above: Performed By: #### U RIN #### [facility] (DEFAULT) [address] [address] RBC Urine 6-9 Abnormal 0-2 [facility] Comment on above: Performed By: #### U RIN #### [facility] (DEFAULT) [address] [address] Specific [place] Urine <= Normal >1.001-<1.035 [facility] Comment on above: Performed By: #### U RIN #### [facility] (DEFAULT) [address] [address] Squamous/Epithelial Cells 1/hpf = 1+ Normal 1/hpf = 1+, 2-5/hpf = 2+, 0/hpf = 0+, ABSENT [facility] Comment on above: Performed By: #### U RIN #### [facility] (DEFAULT) [address] [address] Urobilinogen Urine 0.2 E.U./dL Normal 0.2 E.U/d L, 1.0 E.U/dL [facility] Comment on above: Performed By: #### U RIN #### [facility] (DEFAULT) [address] [address] WBC Urine 0-5 Normal 0-5 [facility] Comment on above: Performed By: #### U RIN #### [facility] (DEFAULT) [address] [address] URINE CULTUREon 11-03-2022 Bacteria identified Cx Nom (U) No significant growth. Routine cultures are evaluated for significant uro-pathogens >=10,000 CFU/mL Normal [facility] Comment on above: Order Comment: For i ndwelling catheters, specimen collection is acceptable on catheter day 1 and 2 only. Jauregui top vacutainer. Urine must be to the fill line to process (4mls). If minimum volume, send urine in a yellow top vacutainer tube. Performed By: #### U R #### [facility] ([facility]) [address] [place] [address] XR ABD FLAT UP_PA Lobo 11-03 XR [...] MANAV [place]ARK Date: 2022-11-03 09:52 Normal [facility] GLYCOHEMOGLOBIN A1Con 2021 ADA RECOMMENDATION SEE BELOW Normal [facility] Comment on above: Result Comment: ADA RECOMMENDED LIMIT 4.0 - 6.0 ADA THERAPEUTIC TARGET < 7.0 ACTION SUGGESTED > 7.0 Performed By: #### A 1C #### [facility] [address] [place], [place] [address] Dr. Cipriano Patton Glucose [Mass/Vol] 111 mg/dL Normal [facility] Comment on above: Performed By: #### A 1C #### [facility] [address] [place], [place] [address] Dr. Cipriano Patton HbA1c (Bld) [Mass fraction] 5.5 % Normal 4.5-6.2 [facility] Comment on above: Performed By: #### A 1C #### [facility] [address] [address] [address] Cipriano Patton PROF CHEM 8 (BAS METB)on Anion gap [Moles/Vol] 9.4 mmol/L Normal [facility] Comment on above: Performed By: #### B MP ####[facility] [address] [address]Dr. Cipriano Patton Calcium [Mass/Vol] 9.2 mg/dL Normal 8.5-10.1 [facility] Comment on above: Performed By: #### B MP ####[facility] [address] [address]Dr. Cipriano Patton Chloride [Moles/Vol] 103 mmol/L Normal 98-107 [facility] Comment on above: Performed By: #### B MP ####[facility] [address] [address]Dr. Cipriano Patton CO2 [Moles/Vol] 30.6 mmol/L Normal 21.0-32.0 [facility] Comment on above: Performed By: #### B MP ####[facility] [address] [address]Dr. Cipriano Patton Creatinine [Mass/Vol] 1.06 mg/dL Normal 0.70-1.30 [facility] Comment on above: Performed By: #### B MP ####[facility] [address] [address]Dr. Cipriano Patton EGFR-AF ANGOLAN >60 Normal >=60 [facility] Comment on above: Performed By: #### B MP ####[facility] [address] [address]Dr. Cipriano Patton EGFR-NON AF ANGOLAN >60 Normal >=60 [facility] Comment on above: Performed By: #### B MP ####[facility] [address] [address]Dr. Cipriano Patton Glucose [Mass/Vol] 96 mg/dL Normal 74-106 [facility] Comment on above: Performed By: #### B MP ####[facility] [address] [address]Dr. Cipriano Patton Potassium [Moles/Vol] 5.0 mmol/L Normal 3.5-5.1 [facility] Comment on above: Performed By: #### B MP ####[facility] [address] [address]Dr. Cipriano Patton Sodium [Moles/Vol] 138 mmol/L Normal 136-145 [facility] Comment on above: Performed By: #### B MP ####[facility] [address] [address]Dr. Cipriano Patton Urea nitrogen [Mass/Vol] 29.0 mg/dL Critically high 7.0-18.0 [facility] Comment on above: Performed By: #### B MP ####[facility] [address] [address]Dr. Cipriano Patton Urea nitrogen/Creatinine [Mass ratio] 27.4 mg/mg Normal [facility] Comment on above: Performed By: #### B MP ####[facility] [address] [address]Dr. Cipriano Patton CBC AUTO DIFFon 07-02-2022 BASO # 0.0 103/ul Normal 0.0-0.1 [facility] Comment on above: Performed By: #### C BC #### [facility] [address] [address] [address] Cipriano Patton Basophils/100 WBC (Bld) 0.5 % Normal 0.2-2.0 [facility] Comment on above: Performed By: #### C BC #### [facility] [address] [address] [address] Cipriano Patton EO # 0.4 103/ul Normal 0.0-0.7 [facility] Comment on above: Performed By: #### C BC #### [facility] [address] [address] [address] Cipriano Patton Eosinophils/100 WBC (Bld) 6.9 % Normal 0.9-7.0 [facility] Comment on above: Performed By: #### C BC #### [facility] [address] [place] [address] Dr. Cipriano Patton Erythrocyte distribution width (RBC) [Ratio] 13.5 % Normal 11.0-15.0 [facility] Comment on above: Performed By: #### C BC #### [facility] [address] [place] [address] Dr. Cipriano Patton Hematocrit (Bld) [Volume fraction] 42.5 % Normal 42.0-54.0 [facility] Comment on above: Performed By: #### C BC #### [facility] [address] [place] [address] Dr. Cipriano Patton Hemoglobin (Bld) [Mass/Vol] 13.7 g/dL Critically low 14.0-18.0 [facility] Comment on above: Performed By: #### C BC #### [facility] [address] [place] [address] Dr. Cipriano Patton IG # 0.02 10e3/ul Normal 0.00-0.03 [facility] Comment on above: Performed By: #### C BC #### [facility] [address] [place] [address] Dr. Cipriano Patton IG % 0.4 % Normal 0.0-0.5 [facility] Comment on above: Performed By: #### C BC #### [facility] [address] [place] [address] Dr. Cipriano Patton LYMPH # 1.3 103/ul Normal 1.2-3.8 [facility] Comment on above: Performed By: #### C BC #### [facility] [address] [place] [address] Dr. Cipriano Patton Lymphocytes/100 WBC (Bld) 23.7 % Normal 20.5-60.0 [facility] Comment on above: Performed By: #### C BC #### [facility] [address] [place] [address] Dr. Cipriano Patton MANUAL DIFF REQ NO Normal [facility] Comment on above: Performed By: #### C BC #### [facility] [address] [place] [address] Dr. Cipriano Patton MCH (RBC) [Entitic mass] 29.4 pg Normal 25.9-34.0 [facility] Comment on above: Performed By: #### C BC #### [facility] [address] [address] [address] Cipriano Patton MCHC (RBC) [Mass/Vol] 32.2 g/dL Normal 29.9-35.2 [facility] Comment on above: Performed By: #### C BC #### [facility] [address] [address] [address] Cipriano Patton MCV (RBC) [Entitic vol] 91.2 fL Normal 80.0-94.0 [facility] Comment on above: Performed By: #### C BC #### [facility] [address] [place] [address] Dr. Cipriano Patton MONO # 0.9 103/ul Critically high 0.3-0.8 [facility] Comment on above: Performed By: #### C BC #### [facility] [address] [place] [address] Dr. Cipriano Patton Monocytes/100 WBC (Bld) 15.8 % Critically high 1.7-12.0 [facility] Comment on above: Performed By: #### C BC #### [facility] [address] [place] [address] Dr. Cipriano Patton NEUT # 2.9 103/ul Normal 1.4-6.5 [facility] Comment on above: Performed By: #### C BC #### [facility] [address] [place] [address] Dr. Cipriano Patton Neutrophils/100 WBC (Bld) 52.7 % Normal 43.0-75.0 [facility] Comment on above: Performed By: #### C BC #### [facility] [address] [place] [address] Dr. Cipriano Patton Platelet mean volume (Bld) [Entitic vol] 9.0 fL Critically low 9.5-13.5 [facility] Comment on above: Performed By: #### C BC #### [facility] [address] [place] [address] Dr. Cipriano Patton PLT 211 103/ul Normal 150-450 [facility] Comment on above: Performed By: #### C BC #### [facility] [address] [address] [address] Cipriano Patton RBC 4.66 106/ul Critically low 4.70-6.10 [facility] Comment on above: Performed By: #### C BC #### [facility] [address] [address] [address] Cipriano Patton WBC 5.5 103/ul Normal 4.0-11.0 [facility] Comment on above: Performed By: #### C BC #### [facility] [address] [place] [address] Dr. Cipriano Patton PROF CHEM 8 (BAS METB)on Anion gap [Moles/Vol] 10.7 mmol/L Normal [facility] Comment on above: Performed By: #### B MP #### [facility] [address] [place] [address] Dr. Cipriano Patton Calcium [Mass/Vol] 8.5 mg/dL Normal 8.5-10.1 [facility] Comment on above: Performed By: #### B MP #### [facility] [address] [place] [address] Dr. Cipriano Patton Chloride [Moles/Vol] 105 mmol/L Normal 98-107 [facility] Comment on above: Performed By: #### B MP #### [facility] [address] [place] [address] Dr. Cipriano Patton CO2 [Moles/Vol] 29.4 mmol/L Normal 21.0-32.0 [facility] Comment on above: Performed By: #### B MP #### [facility] [address] [place] [address] Dr. Cipriano Patton Creatinine [Mass/Vol] 0.90 mg/dL Normal 0.70-1.30 [facility] Comment on above: Performed By: #### B MP #### [facility] [address] [place] [address] Dr. Cipriano Patton EGFR-AF ANGOLAN >60 Normal >=60 [facility] Comment on above: Performed By: #### B MP #### [facility] [address] [place] [address] Dr. Cipriano Patton EGFR-NON AF ANGOLAN >60 Normal >=60 [facility] Comment on above: Performed By: #### B MP #### [facility] [address] [place] [address] Dr. Cipriano Patton Glucose [Mass/Vol] 82 mg/dL Normal 74-106 [facility] Comment on above: Performed By: #### B MP #### [facility] [address] [place] [address] Dr. Cipriano Patton Potassium [Moles/Vol] 4.1 mmol/L Normal 3.5-5.1 [facility] Comment on above: Performed By: #### B MP #### [facility] [address] [place] [address] Dr. Cipriano Patton Sodium [Moles/Vol] 141 mmol/L Normal 136-145 [facility] Comment on above: Performed By: #### B MP #### [facility] [address] [place] [address] Dr. Cipriano Patton Urea nitrogen [Mass/Vol] 16.0 mg/dL Normal 7.0-18.0 [facility] Comment on above: Performed By: #### B MP #### [facility] [address] [place] [address] Dr. Cipriano Patton Urea nitrogen/Creatinine [Mass ratio] 17.8 mg/mg Normal [facility] Comment on above: Performed By: #### B MP #### [facility] [address] [place] [address] Dr. Cipriano Patton Covid-19 PCR ([facility])on 03-21 SARS-CoV-2 (COVID-19) RNA CAIT+probe Ql (Unsp spec) Detected Critically abnormal NOT DETECTED [facility] Comment on above: Result Comment: This test is not yet approved or cleared by the [place] FDA. When there are no FDA-approved or cleared tests available, and other criteria are met, FDA can make tests available under an emergency access mechanism called an Emergency Use Authorization (EUA). The EUA for this test is supported by the [place] of Health and Human Service's (HHS's) declaration [...] longer be used). Performed By: #### C [facility] #### [facility] [address] [place] [address] Dr. Cipriano Patton VC COMP CONSULTATIONon 03-28 VC COMP CONSULTATION Patient: KENNEDY KONG Exam Date: 03/28/2022 : 1935 Gender:M Ordering : DR NESTOR ESTRELLA D.O. Admission #: [id number] Family : Order #: [id number] CLICK HERE TO VIEW EXAM RADIOLOGY REPORT [...] hours. The patient is a wolff in [facility]. The patient denies any signs [...] MD on 03/28/2022 at 10:14 Normal [facility] VC VENOUS REFLUX ROBERTO LMTon 0 03-28-2022 VC VENOUS REFLUX ROBERTO LMT Patient: KENNEDY KONG Exam Date: 03/28/2022 : 1935 Gender:M Ordering : DR NESTOR ESTRELLA D.O. Admission #: [id number] Family : Order #: [id number] CLICK HERE TO VIEW EXAM RADIOLOGY REPORT [...] compression in area of thrombus Flow: Normal Blood Bank Laboratory Technologist: Dist/med calf 2.2mm, 0.7s reflux; mid/med calf [...] or chronic thrombus Compressibility: Normal Flow: Normal Blood Bank Laboratory Technologist: Mid/med 2.6mm, no reflux; dist/med 3.3mm, no reflux Tech Note: Patent varicose vein prox/med 2.3mm, without reflux. Varicose vein mid/ant 2.7mm, without reflux. Hypoechoic avascular structure lt pop fossa that measures 3.1 x 4.2 x 0.9 cm CONCLUSION: 1. [id number] right great saphenous vein venous insufficiency without associated dilatation 2. Small bilateral incompetent varicose veins 3. 4.2 cm left popliteal cyst Dictated by: Aubrey Vee MD on 03/28/2022 at 09:23 Approved by: Aubrey Vee MD on 03/28/2022 at 09:26 Normal [facility] US MILADIS DOP LEG LTon 02-08-20 22 [...] by: AUBREY CHEUNG Date: 2022-02-07 17:34 Normal [facility] ANES Lisa 11-04-2019 ANES POST HNO ID: [id number] Author: Luigi Snyder Service: Anesthesiology Author Type: [...] 04, 2019 TIME: 3:21 PM PAGER/CONTACT #: [phone] [facility] ANES PREOPon 11-04-2019 ANES PREOP HNO ID: [id number] Author: Seymour Buenrostro Service: Anesthesiology Author Type: [...] ASA Monitors Pain Management Plan: ROOT Protocol [facility] Chart Review ACTIVE PROBLEM LIST Colonic Stricture (Hcc) PAST MEDICAL HISTORY Diagnosis Date - Basal cell cancer - Colon cancer (HCC) PAST SURGICAL HISTORY Procedure Laterality Date - COLECTOMY PART W/ANASTOMOSIS 1990 followed with chemotx and radiation - COLONSCOPY SCREENING HIGH RISK - EXCISION HYDROCELE UNILAT 2007 left - EXPLORATORY OF ABDOMEN 2010 Laparotomy, [...] 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 No current facility-administere d medications on file prior to encounter. Current Outpatient Medications on File Prior to Encounter Medication Sig - Fish Oil-DHA-EPA (FISH OIL) 1,200-144-216 mg ORAL Cap Take by mouth once daily. - cyanocobalamin (VITAMIN B-12) 100 mcg ORAL Tab Take 200 mcg by mouth once daily. Inpatient medications reviewed in [facility]. I have interviewed and examined the [...] 04, 2019 TIME: 2:13 PM PAGER/CONTACT #: [phone] [facility] HISTORY PHYSICALon 0 HISTORY PHYSICAL HNO ID: [id number] Author: Avel Camacho Service: Colorectal Author Type: [...] SCREENING HIGH RISK - EXCISION HYDROCELE UNILAT 2007 left - EXPLORATORY OF ABDOMEN 2010 Laparotomy, [...] November 04, 2019 TIME: 1:08 PM PAGER: [facility] PT EDon 11-04-2019 PT ED HNO ID: [id number] Author: Elizabeth Menard) JUSTIN Patel Service: Nursing [...] None Electronically Signed By: Elizabeth Patel RN [facility] PT ED HNO ID: [id number] Author: Harini RomeroRn) JUSTIN Yusuf Service: ? [...] None Electronically Signed By: Harini Yusuf RN [facility] NURSING PROGon 10-08-2019 NURSING PROG HNO ID: [id number] Author: Nathaly RomeroRn) JUSTIN Kraft Service: Nursing Author Type: Registered [...] Kraft RN October 08, 2019 8:45 AM [facility] HOSPon 09-24-2019 HOSP Patient:Dustin Kong MRN: [...] entered within the past 30 days Normal [facility] ABDOMEN 1 VWon 03-31-2019 ABDOMEN 1 VW [facility] Department of Radiology [address] [place] [address] Patient Name: KENNEDY KONG : 1935 Sex: M Age: Race: White Pt. Location: 230 Patient Status: Ordered Date: 03/31/2019 5:00:00 AM Completed Date: 03/31/2019 11:46 AM Requesting Provider: GABRIEL PEREZ Attending Provider: GABRIEL PEREZ Report Copy To: Signs & Symptoms: R10.9 Unspecified abdominal pain I10 History: Pike THIS IS FOR A COLONOSCOPY FOR STRICTURE [...] documentation Electronically signed by:Kaleb Perry. Transcribed by: [email or web address], User Resident: Electronically Signed by: KALEB PERRY @ 03/31/2019 12:59 PM Normal [facility] Comment on above: Order Comment: , THI S IS FOR A COLONOSCOPY FOR STRICTURE , Appointment Date: 03/31/2019 , Appointment Time: 8:30AM , THIS IS FOR A COLONOSCOPY FOR STRICTURE , Appointment Date: 03/31/2019 , Appointment Time: 8:30AM , , , Ordering Provider - MARILEE JIMÉNEZ , Vital Signs Date Time Vital Sign Value Performing Clinician Facility 12-05-2023 14:30-0500 Diastolic blood pressure 78 mm[Hg] Kylie DIETRICH [facility] 12-05-2023 14:30-0500 Heart rate 80 /min Kylie DIETRICH [facility] 12-05-2023 14:30-0500 Respiratory rate 12 /min Kylie DIETRICH [facility] 12-05-2023 14:30-0500 SaO2% (BldA) [Mass fraction] 96 % Kylie DIETRICH [facility] 12-05-2023 14:30-0500 Systolic blood pressure 148 mm[Hg] Kyliezak DIETRICH [facility] 12-05-2023 13:21-0500 Heart rate 73 /min Kyliezak DIETRICH [facility] 12-05-2023 13:21-0500 SaO2% (BldA) [Mass fraction] 95 % Kyliezak DIETRICH [facility] 12-05-2023 13:21-0500 Diastolic blood pressure 80 mm[Hg] Kyliezak DIETRICH [facility] 12-05-2023 13:21-0500 Mean blood pressure 104 mm[Hg] Kyliezak DIETRICH [facility] 12-05-2023 13:21-0500 Systolic blood pressure 151 mm[Hg] Kyliezak DIETRICH [facility] 12-05-2023 13:15-0500 Body temperature 97.52 [degF] Kyliezak DIETRICH [facility] 12-05-2023 13:15-0500 Diastolic blood pressure 99 mm[Hg] Kyliezak DIETRICH [facility] 12-05-2023 13:15-0500 Heart rate 73 /min Kyliezak DIETRICH [facility] 12-05-2023 13:15-0500 Mean blood pressure 104 mm[Hg] Kyliezak DIETRICH [facility] 12-05-2023 13:15-0500 Respiratory rate 9 /min Kyliezak DIETRICH [facility] 12-05-2023 13:15-0500 SaO2% (BldA) [Mass fraction] 97 % Kyliezak DIETRICH [facility] 12-05-2023 13:15-0500 Systolic blood pressure 114 mm[Hg] Kylie DIETRICH [facility] 12-05-2023 13:00-0500 Mean blood pressure 84 mm[Hg] Kyliezak DIETRICH [facility] 12-05-2023 12:55-0500 Mean blood pressure 86 mm[Hg] Kylie DIETRICH [facility] 12-05-2023 12:47-0500 Body temperature 97.34 [degF] Kylie DIETRICH [facility] 12-05-2023 12:40-0500 Respiratory rate 10 /min Kyliezak DIETRICH [facility] 12-05-2023 12:35-0500 Respiratory rate 10 /min Kyliezak DIETRICH [facility] 12-05-2023 12:30-0500 Respiratory rate 10 /min Kyliezak DIETRICH [facility] 12-05-2023 10:26-0500 Mean blood pressure 96 mm[Hg] Kyliezak DIETRICH [facility] 12-05-2023 10:26-0500 Body temperature 97.88 [degF] Kyliezak DIETRICH [facility] 11-20-2023 09:11-0500 Body height 180.3 cm Adriel Morgan DO Work Phone: [facility] 11-20-2023 09:11-0500 Body mass index (BMI) [Ratio] 25.94 kg/m2 Adriel Morgan DO Work Phone: [facility] 11-20-2023 09:11-0500 Body weight 84.37 kg Adriel Morgan DO Work Phone: [facility] 11-20-2023 09:11-0500 Diastolic blood pressure 60 mm[Hg] Adriel Morgan DO Work Phone: [facility] 11-20-2023 09:11-0500 Heart rate 66 /min Adriel Morgan DO Work Phone: [facility] 11-20-2023 09:11-0500 Systolic blood pressure 114 mm[Hg] Adriel Morgan DO Work Phone: [facility] 11-07-2023 08:30-0500 Body height 180.34 cm Nestor Ball Other [facility] Other 11-07-2023 08:30-0500 Body mass index (BMI) [Ratio] 25.33 kg/m2 Nestor Ball Other [facility] Other 11-07-2023 08:30-0500 Body weight 82.37 kg Nestor Ball Other [facility] Other 11-07-2023 08:30-0500 Diastolic blood pressure 73 mm[Hg] Nestor Ball Other [facility] Other 11-07-2023 08:30-0500 Respiratory rate 12 /min Nestor Ball Other [facility] Other 11-07-2023 08:30-0500 Systolic blood pressure 113 mm[Hg] Nestor Ball Other [facility] Other 10-10-2023 16:00-0500 Body temperature 98.1 [degF] Josafat Sun MD Work Phone: [facility] 10-10-2023 16:00-0500 Diastolic blood pressure 76 mm[Hg] Josafat Sun MD Work Phone: [facility] 10-10-2023 16:00-0500 Heart rate 68 /min Josafat Sun MD Work Phone: [facility] 10-10-2023 16:00-0500 Respiratory rate 17 /min Josafat Sun MD Work Phone: [facility] 10-10-2023 16:00-0500 SaO2% (BldA) [Mass fraction] 99 % Josafat Sun MD Work Phone: [facility] 10-10-2023 16:00-0500 Systolic blood pressure 149 mm[Hg] Josafat Sun MD Work Phone: [facility] 10-09-2023 22:34-0500 Body height 177.8 cm Josafat Sun MD Work Phone: [facility] 10-07-2023 14:30-0500 Body height 180.34 cm Imad Asaad Other [facility] Other 10-07-2023 14:30-0500 Body mass index (BMI) [Ratio] 25.24 kg/m2 Imad Asaad Other [facility] Other 10-07-2023 14:30-0500 Body weight 82.1 kg Imad Asaad Other [facility] Other 10-07-2023 14:30-0500 Diastolic blood pressure 63 mm[Hg] Imad Asaad Other [facility] Other 10-07-2023 14:30-0500 Systolic blood pressure 139 mm[Hg] Imad Asaad Other [facility] Other 10-04-2023 08:45-0500 Body height 180.34 cm Nestor Ball Other [facility] Other 10-04-2023 08:45-0500 Body mass index (BMI) [Ratio] 25.35 kg/m2 Nestor Ball Other [facility] Other 10-04-2023 08:45-0500 Body weight 82.46 kg Nestor Ball Other [facility] Other 10-04-2023 08:45-0500 Diastolic blood pressure 65 mm[Hg] Nestor Ball Other [facility] Other 10-04-2023 08:45-0500 Respiratory rate 12 /min Nestor Ball Other [facility] Other 10-04-2023 08:45-0500 Systolic blood pressure 133 mm[Hg] Nestor Ball Other [facility] Other 09-04-2023 08:45-0500 Body height 180.34 cm Nestor Ball Other [facility] Other 09-04-2023 08:45-0500 Body mass index (BMI) [Ratio] 26.11 kg/m2 Nestor Ball Other [facility] Other 09-04-2023 08:45-0500 Body weight 84.91 kg Nestor Ball Other [facility] Other 09-04-2023 08:45-0500 Diastolic blood pressure 71 mm[Hg] Nestor Ball Other [facility] Other 09-04-2023 08:45-0500 Respiratory rate 12 /min Nestor Ball Other [facility] Other 09-04-2023 08:45-0500 Systolic blood pressure 116 mm[Hg] Nestor Ball Other [facility] Other 08-21-2023 09:30-0400 Body height 180.34 cm Nestor Ball Other [facility] Other 08-21-2023 09:30-0400 Body mass index (BMI) [Ratio] 25.46 kg/m2 Nestor Ball Other [facility] Other 08-21-2023 09:30-0400 Body weight 82.83 kg Nestor Ball Other [facility] Other 08-21-2023 09:30-0400 Diastolic blood pressure 61 mm[Hg] Nestor Ball Other [facility] Other 08-21-2023 09:30-0400 Respiratory rate 12 /min Nestor Ball Other [facility] Other 08-21-2023 09:30-0400 Systolic blood pressure 115 mm[Hg] Nestor Ball Other [facility] Other 08-02-2023 09:45-0400 Body height 180.34 cm Nestor Ball Other [facility] Other 08-02-2023 09:45-0400 Body mass index (BMI) [Ratio] 25.86 kg/m2 Nestor Ball Other [facility] Other 08-02-2023 09:45-0400 Body weight 84.1 kg Nestor Ball Other [facility] Other 08-02-2023 09:45-0400 Diastolic blood pressure 64 mm[Hg] Nestor Ball Other [facility] Other 08-02-2023 09:45-0400 Respiratory rate 12 /min Nestor Ball Other [facility] Other 08-02-2023 09:45-0400 SaO2% (BldA) [Mass fraction] 96 % Nestor Ball Other [facility] Other 08-02-2023 09:45-0400 Systolic blood pressure 119 mm[Hg] Nestor Ball Other [facility] Other 07-08-2023 08:30-0400 Body height 180.34 cm Nestor Ball Other [facility] Other 07-08-2023 08:30-0400 Body mass index (BMI) [Ratio] 26.02 kg/m2 Nestor Ball Other [facility] Other 07-08-2023 08:30-0400 Body weight 84.64 kg Nestor Ball Other [facility] Other 07-08-2023 08:30-0400 Diastolic blood pressure 78 mm[Hg] Nestor Ball Other [facility] Other 07-08-2023 08:30-0400 Respiratory rate 12 /min Nestor Ball Other [facility] Other 07-08-2023 08:30-0400 Systolic blood pressure 135 mm[Hg] Nestor Ball Other [facility] Other 06-07-2023 14:15-0400 Body height 180.34 cm Nestor Ball Other [facility] Other 06-07-2023 14:15-0400 Body mass index (BMI) [Ratio] 26.72 kg/m2 Nestor Ball Other [facility] Other 06-07-2023 14:15-0400 Body weight 86.91 kg Nestor Ball Other [facility] Other 06-07-2023 14:15-0400 Diastolic blood pressure 71 mm[Hg] Nestor Ball Other [facility] Other 06-07-2023 14:15-0400 Respiratory rate 12 /min Nestor Ball Other [facility] Other 06-07-2023 14:15-0400 Systolic blood pressure 121 mm[Hg] Nestor Ball Other [facility] Other 05-02-2023 11:57-0400 Body height 177.8 cm Nestor E Ball Work Phone: [facility] [employer] DO Work Phone: 05-02-2023 11:57-0400 Body mass index (BMI) [Ratio] 26.54 kg/m2 Nestor E Ball Work Phone: [facility] [employer] DO Work Phone: 05-02-2023 11:57-0400 Body surface area Derived from formula 2.02 m2 Nestor E Ball Work Phone: [facility] [employer] DO Work Phone: 05-02-2023 11:57-0400 Body weight 83.92 kg Nestor E Ball Work Phone: [facility] [employer] DO Work Phone: 05-02-2023 11:57-0400 Diastolic blood pressure 60 mm[Hg] Nestor E Ball Work Phone: [facility] [employer] DO Work Phone: 05-02-2023 11:57-0400 Heart rate 60 /min Nestor E Ball Work Phone: [facility] [employer] DO Work Phone: 05-02-2023 11:57-0400 Systolic blood pressure 112 mm[Hg] Nestor E Ball Work Phone: [facility] [employer] DO Work Phone: 04-23-2023 08:53-0400 Body temperature 97.8 [degF] DO Nestor Ball Work Phone: [facility] 04-23-2023 08:53-0400 Diastolic blood pressure 53 mm[Hg] DO Nestor Ball Work Phone: [facility] 04-23-2023 08:53-0400 Heart rate 70 /min DO Nestor Ball Work Phone: [facility] 04-23-2023 08:53-0400 Respiratory rate 16 /min DO Nestor Ball Work Phone: [facility] 04-23-2023 08:53-0400 SaO2% (BldA) [Mass fraction] 97 % DO Nestor Ball Work Phone: [facility] 04-23-2023 08:53-0400 Systolic blood pressure 91 mm[Hg] DO Nestor Ball Work Phone: [facility] 04-23-2023 04:43-0400 Body weight 83.1 kg DO Nestor Ball Work Phone: [facility] 04-22-2023 10:44-0400 Body height 177.8 cm DO Nestor Ball Work Phone: [facility] 04-12-2023 13:15-0400 Body height 180.34 cm Nestor Ball Other [facility] Other 04-12-2023 13:15-0400 Body mass index (BMI) [Ratio] 26.41 kg/m2 Nestor Ball Other [facility] Other 04-12-2023 13:15-0400 Body weight 85.91 kg Nestor Ball Other [facility] Other 04-12-2023 13:15-0400 Diastolic blood pressure 72 mm[Hg] Nestor Ball Other [facility] Other 04-12-2023 13:15-0400 Respiratory rate 12 /min Nestor Ball Other [facility] Other 04-12-2023 13:15-0400 Systolic blood pressure 121 mm[Hg] Nestor Ball Other [facility] Other 02-06-2023 12:30-0400 Body height 180.34 cm Nestor Ball Other [facility] Other 02-06-2023 12:30-0400 Body mass index (BMI) [Ratio] 26.39 kg/m2 Nestor Ball Other [facility] Other 02-06-2023 12:30-0400 Body weight 85.82 kg Nestor Ball Other [facility] Other 02-06-2023 12:30-0400 Diastolic blood pressure 80 mm[Hg] Nestor Ball Other [facility] Other 02-06-2023 12:30-0400 Respiratory rate 12 /min Nestor Ball Other [facility] Other 02-06-2023 12:30-0400 Systolic blood pressure 132 mm[Hg] Nestor Ball Other [facility] Other 01-14-2023 15:51-0400 Body height 177.8 cm Avel Camacho MD Work Phone: [facility] 01-14-2023 15:51-0400 Body temperature 97.5 [degF] Avel Camacho MD Work Phone: [facility] 01-14-2023 15:51-0400 Body weight 83.46 kg Avel Camacho MD Work Phone: [facility] 01-14-2023 15:51-0400 Diastolic blood pressure 79 mm[Hg] Avel Camacho MD Work Phone: [facility] 01-14-2023 15:51-0400 Heart rate 65 /min Avel Camacho MD Work Phone: [facility] 01-14-2023 15:51-0400 SaO2% (BldA) [Mass fraction] 97 % Avel Camacho MD Work Phone: [facility] [facility]23 15:51-0400 Systolic blood pressure 165 mm[Hg] Avel Camacho MD Work Phone: [facility] 12-31-2022 11:30-0400 Body height 180.34 cm Nestor Ball Other [facility] Other 12-31-2022 11:30-0400 Body mass index (BMI) [Ratio] 26.27 kg/m2 Nestor Ball Other [facility] Other 12-31-2022 11:30-0400 Body weight 85.46 kg Nestor Ball Other [facility] Other 12-31-2022 11:30-0400 Diastolic blood pressure 70 mm[Hg] Nestor Ball Other [facility] Other 12-31-2022 11:30-0400 Respiratory rate 12 /min Nestor Ball Other [facility] Other 12-31-2022 11:30-0400 Systolic blood pressure 137 mm[Hg] Nestor Ball Other [facility] Other Encounters Encounter Date Encounter Type Care Provider Facility Start: 12-10-2023 ambulatory Kylie Jordan ty:[facility] Start: 12-05-2023 End: 12-05-2023 ambulatory Kylie DIETRICH Facility[facility] Start: 12-05-2023 End: 12-05-2023 Admission to same day surgery center Kylie DIETRICH [facility] Start: 11-22-2023 End: 11-22-2023 ambulatory Nestor Estrella Other [facility] Other Start: 11-22-2023 Telephone encounter Nestor Sameer [facility] Start: 11-20-2023 End: 11-20-2023 ambulatory [facility] Amb[facility] Start: 11-20-2023 End: 11-20-2023 Office outpatient visit 15 minutes [facility] DO Work Phone: [facility] Comment on above: Atherosclerosis of n ative coronary artery, unspecified whether angina present, unspecified whether saxman or transplanted heart; Stented coronary artery; Non-ST elevation myocardial infarction (NSTEMI) ([facility]); Hyperlipidemia, unspecified hyperlipidemia type; History of colon cancer; Never smoked any substance; Malignant neoplasm of urinary bladder, unspecified site ([facility]) Start: 11-07-2023 End: 11-07-2023 ambulatory Nestor Estrella Other [facility] Other Start: 11-07-2023 Office outpatient vi sit 15 minutes Nestor Estrella ISAT[facility] Start: 10-28-2023 End: 10-28-2023 ambulatory Imad Asaad Other [facility] Other Start: 10-28-2023 Telephone encounter Imad Asaad [facility] Start: 10-23-2023 End: 10-23-2023 ambulatory Nestor Estrella Facility:[facility] Start: 10-23-2023 End: 10-23-2023 ambulatory DO Nestor Estrella Work Phone: [facility] Work Phone: Start: 10-23-2023 End: 10-23-2023 Patient encounter procedure DO Nestor Estrella Work Phone: [facility] [place] Work Phone: Start: 10-10-2023 End: 10-10-2023 Emergency department patient visit Josafat Sun MD Work Phone: [facility] Start: 10-07-2023 End: 10-07-2023 ambulatory Imad Asaad Other [facility] Other Start: 10-07-2023 Office outpatient ne w 45 minutes Imad Asaad [facility] Start: 10-04-2023 End: 10-04-2023 ambulatory Nestor Ball Other [facility] Other Start: 10-04-2023 Office outpatient vi sit 15 minutes Nestor Ball [facility] Start: 09-04-2023 End: 09-04-2023 ambulatory Nestor Ball Other [facility] Other Start: 09-04-2023 Office outpatient vi sit 15 minutes Nestor Ball [facility] Start: 09-04-2023 Telephone encounter Nestor Ball FP [facility] Start: 08-21-2023 End: 08-21-2023 ambulatory Nestor Ball Other [facility] Other Start: 08-21-2023 Office outpatient vi sit 15 minutes Nestor Ball [facility] Start: 08-21-2023 Telephone encounter Nestor Ball FP [facility] Start: 08-09-2023 End: 08-09-2023 ambulatory Nestor Ball Other [facility] Other Start: 08-09-2023 Telephone encounter Nestor Ball FP [facility] Start: 08-06-2023 End: 08-06-2023 ambulatory Nestor Ball Other [facility] Other Start: 08-06-2023 Telephone encounter Nestor Ball FP [facility] Start: 08-02-2023 End: 08-02-2023 ambulatory Enstor Ball Other [facility] Other Start: 08-02-2023 Office outpatient vi sit 15 minutes Nestor Estrella [facility] Start: 07-31-2023 End: 07-31-2023 ambulatory Nestor Estrella Other [facility] Other Start: 07-31-2023 Telephone encounter Nestor SINGH [facility] Start: 07-10-2023 End: 07-10-2023 ambulatory Nestor Estrella Other [facility] Other Start: 07-10-2023 Telephone encounter Nestor Estrella FP [facility] Start: 07-08-2023 Chart Update Nestor soriano Work Phone: [facility] [address] DO Work Phone: Start: 07-08-2023 End: 07-08-2023 ambulatory Nestor Estrella Other [facility] Other Start: 07-08-2023 Patient encounter procedure Nestor Estrella [facility] Start: 07-08-2023 Telephone encounter Nestor SINGH [facility] Start: 06-25-[address] Adriel fiore Huntley Facility:[id number] Start: 06-17-2023 ambulatory Kylie Ramseyi ty:[facility] Start: 06-12-2023 ambulatory Kylie DIETRICH Facili ty:[facility] Start: 06-07-2023 End: 06-07-2023 ambulatory Nestor Estrella Other [facility] Other Start: 06-07-2023 Office outpatient vi sit 15 minutes Nestor Estrella [facility] Start: 06-06-2023 ambulatory Kylie DIETRICH Facili ty:[id number] Start: 05-16-2023 Rx Renewal Nestor soriano Work Phone: [facility] [address] DO Work Phone: Start: 05-14-2023 End: 05-15-2023 ambulatory Kylie DIETRICH Facility:[facility] Start: 05-13-2023 ambulatory Kylie DIETRICH Facili ty:CD:[id number] Start: 05-10-2023 End: 05-11-2023 ambulatory Kylie DIETRICH Facility:[facility] Start: 05-10-2023 End: 05-11-2023 ambulatory Kylie DIETRICH Facility:[facility] Start: 05-09-2023 End: 05-09-2023 ambulatory Nestor Estrella Other [place] [employer] Other Start: 05-09-2023 Telephone encounter [facility]or [facility]H [facility] Start: 05-02-2023 Telephone encounter Nestor Sameer SINGH [facility] Start: 05-02-2023 Office outpatient vi sit 15 minutes Nestor [place] Sameer Work Phone: [facility] 250 DO Work Phone: Start: 05-02-2023 End: 05-02-[address] Nestor Estrella [facility] [employer] Other Start: 04-22-2023 Telephone encounter Nestor SINGH [facility] Start: 04-22-2023 End: 04-23-2023 Evaluation and management of inpatient Nestor Estrella Facility:[facility] Start: 04-22-2023 End: 04-23-2023 Evaluation and management of inpatient DO Nestor Estrella Work Phone: [facility] Work Phone: Start: 04-22-2023 End: 04-22-[address] Adriel Morgan [facility] Other Start: 04-12-2023 End: 04-12-2023 ambulatory Nestor Estrella Other [place] [employer] Other Start: 04-12-2023 Office outpatient vi sit 15 minutes Nestor Estrella [facility] Start: 04-08-2023 End: 04-09-2023 ambulatory Kylie Lauro DIETRICH Facility:[facility] Start: 04-08-2023 End: 04-08-2023 Patient encounter procedure Kylie DIETRICH [facility] [place] Start: 03-19-2023 End: 03-19-2023 ambulatory Nestor Estrella Other [facility] Other Start: 03-19-2023 Telephone encounter Nestor [facility]ac[facility] Start: 03-11-2023 End: 03-12-2023 ambulatory Kylie DIETRICH Facility:[facility] Start: 02-06-2023 End: 02-06-2023 ambulatory Nestor Estrella Other [facility] Other Start: 02-06-2023 Office outpatient vi sit 15 minutes Nestor Estrella [facility] Start: 02-06-2023 Telephone encounter Nestor [facility] Start: 01-31-2023 End: 01-31-2023 ambulatory Nestor Estrella Other [facility] Other Start: 01-31-2023 Telephone encounter Nestor SINGH [facility] Start: 01-18-2023 End: 01-19-2023 ambulatory TASHA CHILDERS . Facility: Start: 01-14-2023 End: 01-14-2023 ambulatory AVEL CAMACHO Facility:[facility] Start: 01-14-2023 End: 01-14-2023 Patient encounter procedure Avel Camacho MD Work Phone: Colorectal Surgery Comment on above: Irregular bowel habi ts (Primary Dx) Start: 01-07-2023 Telephone encounter Nestor Sameer [facility] Start: 01-07-2023 End: 01-08-[address] KYLIE DIETRICH . [place] [employer] Other Start: 12-31-2022 End: 12-31-2022 ambulatory Nestor Estrella Other [facility] Other Start: 12-31-2022 Office outpatient vi sit 25 minutes Nestor LUNSFORD [facility] Start: 12-28-2022 ambulatory Kylie DIETRICH Facili ty:[facility] Start: 12-27-2022 Telephone encounter Nestor Sameer [facility] Start: 12-27-2022 End: 12-28-[address] NESTOR ESTRELLA [facility] [employer] Other Start: 12-25-2022 End: 12-25-2022 ambulatory Reid Ann Other [facility] Other Start: 12-25-2022 Telephone encounter Reid Ann [facility] Start: 12-20-[address] KYLIE DIETRICH . Fac ility:[facility] Start: 12-12-[address] KYLIE DIETRICH . Fac ility:[facility] Start: 11-12-2022 End: 11-12-[address] KYLIE DIETRICH . Facility:[facility] Start: 11-04-2022 Evaluation and management of inpatient JIMMY ESTRELLA Facility:[facility] Start: 11-04-2022 End: 11-04-2022 Evaluation and management of inpatient [facility] Scan So Outside Imaging Second Opinion Start: 11-03-2022 End: 11-05-2022 Evaluation and management of inpatient LUKE LAN Facility:[facility] Start: 11-03-2022 End: 11-03-[address] HANG OHARA Facility:[facility] Start: 11-02-2022 End: 11-02-2022 Patient encounter procedure Kylie DIETRICH [facility] Start: 10-04-2022 End: 10-04-[address] KYLIE DIETRICH . Facility:[facility] Start: 09-28-2022 End: 09-29-[address] NESTOR ESTRELLA Facility:[facility] Start: 09-28-2022 End: 09-28-2022 Patient encounter procedure Kylie DIETRICH [facility] Start: 09-19-2022 End: 09-19-2022 Patient encounter procedure Marina Hooper [facility] Start: 08-23-2022 End: 08-23-[address] KYLIE DIETRICH . Facility:[facility] Start: 08-08-2022 End: 08-08-2022 Patient encounter procedure BRANDO BARRAGAN [facility] Start: 07-02-2022 End: 07-03-[address] NESTOR ESTRELLA Facility:[facility] Start: 06-11-2022 End: 06-11-[address] KYLIE DIETRICH . Facility:[facility] Start: 06-04-2022 End: 06-04-2022 Patient encounter procedure Kylie DIETRICH [facility] Start: 04-30-2022 End: 04-30-[address] KYLIE DIETRICH . Facility:[facility] Start: 04-25-2022 End: 04-25-2022 Patient encounter procedure Marina Irma Hooper [facility] Start: 04-09-2022 End: 04-09-[address] NESTOR ESTRELLA Facility:[facility] Start: 04-06-2022 End: 04-06-[address] NESTOR ESTRELLA Facility:[facility] Start: 04-02-2022 End: 04-02-[address] KYLIE DIETRICH . Facility:[facility] Start: 03-30-2022 End: 03-30-2022 Patient encounter procedure Kylie DIETRICH [facility] Start: 03-28-2022 End: 03-29-[address] NESTOR ESTRELLA Facility:[facility] Start: 03-05-2022 End: 03-05-[address] KYLIE DIETRICH . Facility:[facility] Start: 03-02-2022 End: 03-02-2022 Patient encounter procedure Kylie DIETRICH [facility] Start: 02-07-2022 End: 02-08-[address] NESTOR ESTRELLA Facility:[facility] Start: 01-08-2022 End: 01-08-2022 Patient encounter procedure Kylie Restrepo KARLO [facility] Start: 05-09-2017 Ambulatory ADRIEL MCNEILL [facility] Start: 05-06-2017 End: 05-10-2017 Ambulatory ADRIEL RIOS [facility] Ambulato ry Procedures Date Procedure Procedure Detail Performing Clinician Start: 12-05-2023 Transurethral resect ion of bladder neoplasm Kylie KARLO Start: 10-23-2023 CT of small intestine D O Nestor Estrella Work Phone: Start: 10-10-2023 Assay of lactate Sam Garcia MD Work Phone: Start: 10-09-2023 Assay of lipase Erick eRad MD Work Phone: Start: 10-09-2023 CBC AND [...] Cardiac catheterization Benj wojciech Estrella Work Phone: Cardiac catheterization Patr icterry DIETRICH Cataract (disorder) Kylie DIETRICH Comment on above: left colon resection Kylie BAZANDarvin ANKIT Colonoscopy Kylie DIETRICH Colonoscopy Nestor Estrella Work Phone: History of placement of stent for coronary artery disease Status post insertion of drug eluting coronary artery stent Nestor Estrella Work Phone: Insertion of arterial stent Nestor Estrella Work Phone: Operation on gallbladder Eleuterio [place] Sameer Work Phone: Comment on above: tumor removal; Partial resection of colon B enalida [place] Sameer Work Phone: Plan of Treatment Date Care Activity Detail Author Start: 01-18-2033 DTaP/Tdap/Td Vaccine s (2 - Td or Tdap) DTaP/Tdap/Td Vaccines (2 - Td or Tdap) [facility] Start: 01-18-2033 Tetanus vaccination TETANUS [facility] Start: 10-09-2024 Diabetes mellitus screening Diabetes Screening [facility] Start: 09-28-2024 End: 09-28-2024 Patient encounter procedure 09/28/2024 2:00 PM EST [facility] [address] [place] [address] [place] [address] Memo Mccall MD [address] [place] [id number] [facility] Start: 05-20-2024 End: 05-20-2024 Patient encounter procedure 05/20/2024 9:50 AM EDT Office Visit [facility] [address] [facility] [address] [place] [id number] Adriel Morgan S, DO [address] [place] [address] [facility] Start: 12-16-2023 ambulatory Ambulatory Facility:[facility] Chowdary [place] Start: 11-20-2023 FUV, Provider: Adriel Morgan, Status: Pen, Time: 9:20 AM FUV, Provider: Adriel Morgan, Status: Pen, Time: 9:20 AM [facility] [address] DO Work Phone: Start: 06-25-2023 ECHO, Provider: DANIELLA NUNEZ [facility] ULTRASOUND 01,[id number], Status: Pen, Time: 12:30 PM ECHO, Provider: TANNER [facility] ULTRASOUND 01,[id number], Status: Pen, Time: 12:30 PM [facility] 250 DO Work Phone: Start: 06-21-2023 COVID-19 VACCINE ( season) COVID-19 VACCINE ( season) [facility] Start: 06-21-2023 Influenza vaccination INFLUENZA VACC INE (#1) [facility] Start: 04-23-2023 [facility] Start: 04-22-2023 End: 04-22-2023 Referral to clarification operator [facility] Start: 04-22-2023 Referral to cardiac rehabilitation program [facility] Start: 04-22-2023 Hospital admission [facility] Start: 10-21-2022 ADVANCE DIRECTIVE DISCUSSION ADVANCE DIRECTIVE DISCUSSION [facility] Start: 10-21-2022 DEPRESSION ASSESSMENT DEPRESSION ASS ESSMENT [facility] Start: 06-21-2022 Influenza vaccination INFLUENZA (#1) [facility] Start: 10-24-2018 Pneumococcal vaccination PNEUM OCOCCAL VACCINE SERIES (2 - PCV) [facility] Start: 10-24-2018 Pneumococcal Vaccine : 65+ Years (2 - PCV) Pneumococcal Vaccine: 65+ Years (2 - PCV) [facility] Start: 01-22-2015 DIABETES SCREEN DIABETES SCREEN [facility] Start: 2001 PNEUMOCOCCAL: 65+ (1 - PCV) PNEUMOCOCCAL: 65+ (1 - PCV) [facility] Start: 1986 SHINGRIX VACCINE (1 of 2) SHINGRIX VACCINE (1 of 2) [facility] Start: 1981 Screening for malign ant neoplasm of colon COLORECTAL CANCER SCREENING DISCUSSION [facility] Start: 1955 Urine microalbumin profile DTAP,TDAP,TD (1 - Tdap) [facility] Start: 1936 COVID-19 VACCINE (#1) COVID-19 VACCI NE (#1) [facility] Start: 1936 Lipid panel Lipid Panel [facility] Start: 1936 Medicare Annual Well ness Visit Medicare Annual Wellness Visit (AWV) [facility] Calprotectin [Mass/m ass] in Stool [facility] End: 10-09-2023 GOLD TOP TUBE [facility] Comment on above: Once for 1 Occurrenc es starting 10/09/2023 until 10/09/2023 End: 10-09-2023 LAVENDER TOP TUBE [facility] Comment on above: Once for 1 Occurrenc es starting 10/09/2023 until 10/09/2023 Patient Education Coronary Angio plasty (DC) Coronary Stenting (DC) Angina (DC) Chest Pain (DC) Drug Eluting Stents [facility] Work Phone: Patient referral [facility] Work Phone: End: 10-09-2023 RAINBOW DRAW [facility] Work Phone: Comment on above: One Time for 1 Occur rences starting 10/09/2023 until 10/09/2023 Immunizations Immunization Date Immunization Notes Care Provider Fa darleen 07-08-2023 influenza, high dose seasonal, preservative-free Nestor Estrella Other [facility] Other 01-18-2023 tetanus toxoid, reduced diphtheria toxoid, and acellular pertussis vaccine, adsorbed Nestor Estrella Work Phone: [place] [address] DO Work Phone: 08-30-2022 COVID-19 Pfizer (Pediatric) Nestor Estrella Other [facility] Other 08-30-2022 Pfizer COVID-19 Vac Bivalent 30 MCG/0.3ML Intramuscular Suspension Nestor Estrella Work Phone: [place] [address] DO Work Phone: 07-02-2022 Fluad Quadrivalent 0 .5 ML Intramuscular Prefilled Syringe Nestor Estrella Work Phone: [place] [address] DO Work Phone: 07-02-2022 influenza virus vaccine, split virus (incl. purified surface antigen) Nestor Estrella Other [facility] Other 07-02-2022 influenza virus vaccine, unspecified formulation Josafat Sun MD Work Phone: [facility] 01-19-2022 Comirnaty 30 MCG/0.3 ML Intramuscular Suspension Nestor Estrella Work Phone: [facility] 250 DO Work Phone: 01-19-2022 COVID-19 Vaccine Pfizer - Documentation Purposes Only Nestor Estrella Other [facility] [place] Other 10-01-2021 zoster vaccine recombinant Nestor Estrella Work Phone: [place] [address] DO Work Phone: 07-31-2021 diphtheria, tetanus toxoids and acellular pertussis vaccine, unspecified formulation Nestor Estrella Other [facility] [place] Other 07-31-2021 influenza virus vaccine, split virus (incl. purified surface antigen) Nestor Estrella Other [facility] Other 07-27-2021 influenza, seasonal, injectable, preservative free Nestor Estrella Work Phone: [facility] 250 DO Work Phone: 06-09-2021 Pfizer-BioNTech COVID-19 Vacc 30 MCG/0.3ML Intramuscular Suspension Nestor Estrella Work Phone: [place] [address] DO Work Phone: 04-14-2021 zoster vaccine recombinant Nestor Estrella Work Phone: [place] [address] DO Work Phone: 12-02-2020 Pfizer-BioNTech COVID-19 Vacc 30 MCG/0.3ML Intramuscular Suspension Nestor Estrella Work Phone: [facility] 250 DO Work Phone: 11-10-2020 Pfizer-BioNTech COVID-19 Vacc 30 MCG/0.3ML Intramuscular Suspension Nestor Estrella Work Phone: [place] [address] DO Work Phone: 09-26-2020 bacillus calmette-blossom vaccine Kyliezak DIETRICH [facility] 09-12-2020 bacillus calmette-blossom vaccine Kyliezak DIETRICH [facility] 09-05-2020 bacillus calmette-blossom vaccine Kylie DIETRICH [facility] 08-29-2020 bacillus calmette-blossom vaccine Kylie DIETRICH [facility] 08-15-2020 bacillus calmette-blossom vaccine Kylie DIETRICH [facility] 08-08-2020 bacillus calmette-blossom vaccine Kylie DIETRICH [facility] 07-01-2020 influenza virus vaccine, split virus (incl. purified surface antigen) Nestor Estrella Other [facility] Other 08-03-2019 influenza, seasonal, injectable Nestor Estrella Work Phone: [place] [address] DO Work Phone: 07-15-2019 influenza virus vaccine, split virus (incl. purified surface antigen) Nestor Estrella Other [facility] Other 07-15-2018 influenza virus vaccine, split virus (incl. purified surface antigen) Nestor Estrella Other [facility] Other 07-15-2018 Seasonal trivalent influenza vaccine, adjuvanted, preservative free Nestor Estrella Work Phone: [place] [address] DO Work Phone: 10-24-2017 pneumococcal polysaccharide vaccine, 23 valent Nestor Estrella Work Phone: [place] [address] DO Work Phone: 06-27-2016 influenza virus vaccine, split virus (incl. purified surface antigen) Nestor Estrella Other [facility] [place] Other 06-27-2016 pneumococcal conjuga te vaccine, 13 valent Nestor Estrella Other [facility] Other 10-29-2013 zoster vaccine, live Benjami amy Estrella Work Phone: -[facility] [address] DO Work Phone: Payers Date Payer Category Payer Self-pay [id number] 2022 Unknown 2016 Private Health Insurance AETDARNELL Keene ET[employer] MEDICARE SUPPLEMENT [id number] 2016-Present [phone] [address] [address] [place] [address] Indemnity [id number] 2003 Medicare [id number] 2001 Medicare [id number] 1959 Medicare [id number] 1959 Private Health Insurance [facility] [id number] 1936 Unknown [id number] 2.16.840.1.260040.3.579. 2.594 1936 Unknown [id number] 2.16.840.1.692236.3.579. 2.594 1936 Unknown [id number] 2.16.840.1.840704.3.579. 2.593 1936 Unknown [id number] 2.16.840.1.680881.3.579. 2.593 1936 Unknown [id number] 2.16.840.1.751482.3.579. 2.593 1936 Unknown [id number] 2.16.840.1.399180.3.579. 2.593 1936 Unknown [id number] 2.16.840.1.737733.3.579. 2.593 1936 Unknown [id number] 2.16.840.1.686098.3.579. 2.593 1936 Unknown [id number] 2.16.840.1.056646.3.579. 2.593 1936 Unknown [id number] 2.16.840.1.738001.3.579. 2.593 1936 Unknown [id number] 2.16.840.1.397918.3.579. 2.593 1936 Unknown [id number] 2.16.840.1.099147.3.579. 2.593 1936 Unknown [id number] 2.16.840.1.348135.3.579. 2.593 1936 Unknown [id number] 2.840.1.537065.3.579. 2.593 1936 Unknown [id number] 2.840.1.328662.3.579. 2.593 1936 Unknown [id number] 2.840.1.652769.3.579. 2.593 1936 Unknown [id number] 2.840.1.199927.3.579. 2.593 1936 Unknown [id number] 2.840.1.269240.3.579. 2.593 1936 Unknown [id number] 2.840.1.404381.3.579. 2.593 1936 Unknown [id number] 2.840.1.515842.3.579. 2.593 1936 Unknown [id number] 2..840.1.510757.3.579. 2.593 1936 Unknown [id number] 2.16.840.1.963213.3.579. 2.1068 1936 Unknown [id number] 2.16.840.1.434922.3.579. 2.356 1936 Unknown [id number] 2.16840.1.638530.3.579. 2.356 1936 Unknown [id number] 2.16.840.1.495404.3.579. 2.356 1936 Unknown [id number] 2.16.840.1.852837.3.579. 2.1244 1936 Unknown [id number] 2.16.840.1.529525.3.579. 2.727 1936 Unknown [id number] 2.16.840.1.828482.3.579. 2.727 1936 Unknown [id number] 2.16.840.1.295305.3.579. 2.727 1936 Unknown [id number] 2..840.1.701549.3.579. 2.727 1936 Unknown [id number] 2.840.1.071089.3.579. 2.727 1936 Unknown [id number] 2..840.1.221336.3.579. 2.727 1936 Unknown [id number] 2.840.1.694036.3.579. 2.727 1936 Unknown [id number] 2.840.1.687643.3.579. 2.727 1936 Unknown [id number] 2.840.1.201722.3.579. 2.727 1936 Unknown [id number] 2.16.840.1.081491.3.579. 2.727 1936 Unknown [id number] 2.16.840.1.740217.3.579. 2.727 1936 Unknown [id number] 2..840.1.180166.3.579. 2.727 Unknown [id number] 2.16.840.1.954728.3.579. 2.531 Unknown [id number] 2.16840.1.008553.3.579. 2.531 Social History Date Type Detail Facility Start: 09-01-2021 End: 11-04-2022 Tobacco smoking status Never smoked tobacco (finding) [facility] Start: 11-04-2022 End: 11-20-2023 Sex Assigned At Male [facility] Start: 01-23-2012 End: 11-04-2022 Tobacco use and exposure Smokeless tobacco non-user [facility] Work Phone: Start: 01-14-2023 End: 11-20-2023 Alcohol intake Current drinker of alcohol (finding) [facility] Start: 01-14-2023 Alcohol Comment 1/5 of whiskey every 6 months [facility] Start: 1935 Sex Assigned At Not on file C [facility] Start: 1935 Sex Assigned At Male F [facility] Start: 11-04-2022 End: 11-20-2023 No illicit drug use No illicit drug use [facility] DO Work Phone: Start: 11-04-2022 Alcohol intake Lifetime non-d yu (finding) [facility] Start: 11-20-2023 Alcohol Comment beer [facility] Work Phone: Start: 11-10-2023 End: 11-20-2023 Exposure to SARS-CoV-2 (event) Not sure [facility] Medical Equipment Procedure Code Equipment Code Equipment Origin al Text Equipment Identifier Dates CL STENT GLENNY FRONTIER 3.0 X 12 FDA Start: 04-22-2023 Goals Date Patient Goal Desired Activity /State Functional Status Date Assessment Result Facility 12-05-2023 Functional Status No [facility] 04-23-2023 Functional status Patient at Baseline [facility] Work Phone: Mental Status Date Assessment Result Facility 04-23-2023 Cognitive function Cognitive Sta tus Patient at Baseline [facility] Work Phone: Clinical Notes 01-08-2022 to 12-05-2023 Adriel Morgan, DO - 11/20/2023 9:20 AM ESTPatient Instructions Note Date & Type Note Facility 12-05-2023 Hospital Discharge instructions Patient Education 12/05/2023 13:36:25 Transurethral Resection of Bladder Tumor Transurethral Resection of Bladder Tumor Transurethral resection of a bladder tumor is the removal (resection) of cancerous tissue (tumor) from the inside wall of the bladder. The bladder is the organ that holds urine. The tumor is removed through the tube that carries urine out of the body (urethra). In a transurethral resection, a thin telescope with a light, a tiny camera, and an electric cutting edge (resectoscope) is passed through the urethra. In men, the opening of the urethra is at the end of the penis. In women, it is just above the opening of the vagina. Tell a health care provider about: Any allergies you have. All medicines you are taking, including vitamins, herbs, eye drops, creams, and joni-ztk-alwtdwd medicines. Any problems you or family members have had with anesthetic medicines. Any bleeding problems you have. Any surgeries you have had. Any medical conditions you have, including recent urinary tract infections. Whether you are or may be . What are the risks? Generally, this is a safe procedure. However, problems may occur, including: Infection. Bleeding. Allergic reactions to medicines. Damage to nearby structures or organs. Difficulty urinating from blockage of the urethra or not being able to urinate (urinary retention). Deep vein thrombosis. This is a blood clot that can develop in your leg. Recurring cancer. What happens before the procedure? When to stop eating and drinking Follow instructions from your health care provider about what you may eat and drink before your procedure. These may include: 8 hours before your procedure ?Stop eating most foods. Do not eat meat, fried foods, or fatty foods. ?Eat only light foods, such as toast or crackers. ?All liquids are okay except energy drinks and alcohol. 6 hours before your procedure ?Stop eating. ?Drink only clear liquids, such as water, clear fruit juice, black coffee, plain tea, and sports drinks. ?Do not drink energy drinks or alcohol. 2 hours before your procedure ?Stop drinking all liquids. ?You may be allowed to take medicines with small sips of water. Medicines Ask your health care provider about: Changing or stopping your regular medicines. This is especially important if you are taking diabetes medicines or blood thinners. Taking medicines such as aspirin and ibuprofen. These medicines can thin your blood. Do not take these medicines unless your health care provider tells you to take them. Taking nxge-cbx-sgqcdcm medicines, vitamins, herbs, and supplements. General instructions If you will be going home right after the procedure, plan to have a responsible adult: ?Take you home from the hospital or clinic. You will not be allowed to drive. ?Care for you for the time you are told. Ask your health care provider what steps will be taken to help prevent infection. These steps may include: ? Washing skin with a germ-killing soap. ? Taking antibiotic medicine. Do not use any products that contain nicotine or tobacco for at least 4 weeks before the procedure. These products include cigarettes, chewing tobacco, and vaping devices, such as e-cigarettes. If you need help quitting, ask your health care provider. What happens during the procedure? An IV will be inserted into one of your veins. You will be given one or more of the following: ?A medicine to help you relax (sedative). ?A medicine that is injected into your spine to numb the area below and slightly above the injection site (spinal anesthetic). ?A medicine that is injected into an area of your body to numb everything below the injection site (regional anesthetic). ?A medicine to make you fall asleep (general anesthetic). Your legs will be placed in foot rests (stirrups) to open your legs and bend your knees. The resectoscope will be passed through your urethra and into your bladder. The part of your bladder with the tumor will be resected by the cutting edge of the resectoscope. Fluid will be passed to rinse out the cut tissues (irrigation). The resectoscope will then be taken out. A small, thin tube (catheter) will be passed through your urethra and into your bladder. The catheter will drain urine into a bag outside of your body. The procedure may vary among health care providers and hospitals. What happens after the procedure? Your blood pressure, heart rate, breathing rate, and blood oxygen level will be monitored until you leave the hospital or clinic. You may continue to receive fluids and medicines through an IV. You will be given pain medicine to relieve pain. You will have a catheter to drain your urine. ?The amount of urine will be measured. If you have blood in your urine, your bladder may be rinsed out by passing fluid through your catheter. You will be encouraged to walk as soon as you can. You may have to wear compression stockings. These stockings help to prevent blood clots and reduce swelling in your legs. If you were given a sedative during the procedure, it can affect you for several hours. Do not drive or operate machinery until your health care provider says that it is safe. Summary Transurethral resection of a bladder tumor is the removal (resection) of a cancerous growth (tumor) on the inside wall of the bladder. To do this procedure, your health care provider uses a thin telescope with a light, a tiny camera, and an electric cutting edge (resectoscope) that is guided to your bladder through your urethra. The part of your bladder that is affected by the tumor will be resected by the cutting edge of the resectoscope. A catheter will be passed through your urethra and into your bladder. The catheter will drain urine into a bag outside of your body. If you will be going home right after the procedure, plan to have a responsible adult take you home from the hospital or clinic. You will not be allowed to drive. This information is not intended to replace advice given to you by your health care provider. Make sure you discuss any questions you have with your health care provider. Document Revised: 10/12/2022 Document Reviewed: 10/12/2022 [employer] Patient Education 2022 [employer]. 12/05/2023 13:36:01 Saldaña Catheter Care, Male-[facility](CUSTOM) Saldaña Catheter Care, Male A Saldaña catheter is a soft, flexible tube that is placed into the bladder to drain urine. The catheter has a balloon to hold it inside the bladder. A Saldaña catheter may be inserted if: You leak urine or are not able to control when you urinate (urinary incontinence). You are not able to urinate when you need to (urinary retention). You had prostate surgery or surgery on the genitals. You have certain medical conditions, such as multiple sclerosis, dementia, or a spinal cord injury. To Prevent Infection: 1. Wash your hands with soap and water before and after handling your catheter. 2. Using mild soap and warm water on a clean washcloth; twice a day. Clean the area on your body closest to the catheter insertion site using a circular motion, moving away from the catheter. Never wipe toward the catheter because this could sweep bacteria up into the urethra and cause infection. Remove all traces of soap. Pat the area dry with a clean towel and reposition the foreskin. No tub baths. No lotions, powders, or sprays unless directed by your physician. 3. Keep the tube secure. Do not let the tube pull or catch when you are moving around. Attach the catheter to your leg so there is no tension on the catheter. Use adhesive tape or a leg strap. If you are using adhesive tape, remove any sticky residue left behind by the previous tape you used. 4. Replace wet leg straps with dry ones. 5. Wear cotton underwear to absorb moisture and keep sizing machine and drier operator. 6. Keep the drainage bag below the level of the bladder, but keep it off the floor. 7. Check throughout the day to be sure the catheter is working and urine is draining freely. Make sure the tubing does not become kinked or looped. 8. Do not pull on the catheter or try to remove it. Pulling could damage internal tissues. TAKING CARE OF THE DRAINAGE BAGS You will be given two drainage bags to take home. One is a large overnight drainage bag, and the other is a smaller leg bag that fits underneath clothing. You may wear the overnight bag at any time, but you should never wear the smaller leg bag at night, unless directed by your physician. Follow the instructions below for how to empty and change your drainage bags. Emptying the Drainage Bag You must empty your drainage bag when it is ? full. 1. Wash your hands with soap and water before and after handling your catheter. 2. Keep the drainage bag below your hips, below the level of your bladder. This stops urine from going back into the tubing and into your bladder. 3. Hold the dirty bag over the toilet or a clean container. 4. Open the pour spout at the bottom of the bag and empty the urine into the toilet or container. Do not let the pour spout touch the toilet, container, or any other surface. Doing so can place bacteria on the bag, which can cause an infection. 5. Clean the pour spout with a gauze pad or cotton ball that has rubbing alcohol on it. 6. Close the pour spout. 7. Attach the bag to your leg with adhesive tape or a leg strap. Changing the Drainage Bag 1. Wash your hands with soap and water before and after handling your catheter. 2. Pinch off the rubber catheter so that urine does not spill out. 3. Disconnect the catheter tube from the drainage tube at the connection valve. Do not let the tubes touch any surface. 4. Clean the end of the catheter tube with an alcohol wipe. Use a different alcohol wipe to clean the end of the drainage tube. 5. Connect the catheter tube to the drainage tube of the clean drainage bag. 6. Attach the new bag to the leg with adhesive tape or a leg strap. Avoid attaching the new bag too tightly. 7. Place a cap on the drainage bag not in use and store in a clean towel. SEEK MEDICAL CARE IF: Your urine is cloudy or smells. Your catheter starts to leak. Your catheter falls out or is pulled out. You have pain, swelling, redness, or pus where the catheter enters the body. You have pain in the abdomen, legs, lower back, or bladder. You have a fever of 100.4 F (38 C) or higher You see pink, red, dark, coffee colored, or pus-like urine. You have nausea, vomiting, or chills. You are not feeling better in 2 to 3 days or you are feeling worse. You are not draining urine into the bag or your bladder feels full. MAKE SURE YOU: Understand the reason you have the catheter. Understand and follow these instructions to care for the catheter. Will watch your condition. Drink 6-8 glasses of water or liquids per day to keep your urine clear. Avoid Caffeinated drinks. They can irritate the bladder and cause bladder spasms. Keep your follow up appointments and call with any concerns. 12/05/2023 13:35:56 Post Op Patient Instructions - FT (CUSTOM) Follow Up Care 12/05/2023 08:47:18 With:Kylie DIETRICH Address: [facility] [address] , [place] [address]- Business (1) When:12/12/2023 12:47:26 [facility] 12-05-2023 Note [id number]#[id number] [facility] 11-20-2023 History of Present illness Narrative Subjective [...] visit. 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 Atherosclerosis of saxman coronary artery, unspecified whether angina present, unspecified whether saxman or transplanted heart 2. Stented coronary artery 3. Non-ST elevation myocardial infarction (NSTEMI) ([facility]) 4. Hyperlipidemia, unspecified hyperlipidemia type 5. History of colon cancer 6. Never smoked any substance 7. Malignant neoplasm of urinary bladder, unspecified site ([facility]) Scribe Attestation By signing my name below, Radha Robb LPN , Scribe attest that this documentation has been prepared under the direction and in the presence of Adriel Morgan DO. documented in this encounter [facility] Work Phone: 11-20-2023 Instructions Lorena Garcia LPN [...] of your visit. documented in this encounter [facility] Work Phone: 11-07-2023 Evaluation note Encounter Date [...] at HS, restarting at first s/s constipation [facility] Other [id number] Miscellaneous Notes* CDU Provider Note - Raulito [...] see in follow up, our CDU clinical immigration case manager will assist the patient with their follow [...] prescriptions, and ambulatory referrals. [facility] Progress [facility]* CDU Provider Note - [...] see in follow up, our CDU clinical immigration case manager will assist the patient with their follow [...] instructions, discharge summary, prescriptions, and ambulatory referrals. [facility] Work Phone: [phone] 479-331312-21-2023 Hospital Discharge instructions* Discharge Instructions* Seferino Han, HAT CONE INSPECTOR-COMPLIANCE ASSOCIATE - 10/10/2023 3:46 PM EST Please call GI to schedule a follow-up appointment. Follow-up: Call as soon as possible for an appointment: Gastroenterology Clinic: [phone] [facility] Emergency department Note* Tracey Lawrence RN - 10/10/2023 1:59 PM EST Reason for Consult: Keith Documentation Spoke with Kennedy Kong @ 1219 Action Plan: Emergency Department Title Camera Operator and discussed the Medicare Outpatient Observation Notice (KEITH). Patient's questions answered and they verified understanding. Patient instructed to call Medicare at1-800-MEDICARE ( ) if they have any additional questions. Document signed by patient and Title Camera Operator. Copy provided for patient. Document scanned to [email or web address] Tracey ANDERSON Emergency Department Clinical Title Camera Operator [id number] Available via secure chat [facility] Emergency department Note* Tracey Lawrence RN - 10/10/2023 1:59 PM EST Reason for Consult: Keith Documentation Spoke with Kennedy Kong @ 1219 Action Plan: Emergency Department Title Camera Operator and discussed the Medicare Outpatient Observation Notice (KEITH). Patient's questions answered and they verified understanding. Patient instructed to call Medicare at1-800-MEDICARE ( ) if they have any additional questions. Document signed by patient and Title Camera Operator. Copy provided for patient. Document scanned to [email or web address] Tracey ANDERSON Emergency Department Clinical Title Camera Operator [id number] Available via secure chat * Bronwyn Schaeffer [...] obstruction Disposition: Observation Unit Patient Kennedy Kong [id number] to be placed in observation unit for [...] note was dictated with the assistance of [employer] dictation software. Attempts were made to proofread [...] Denies abd pain, nausea. documented in this [facility]12-21-2023 Physician Emergency department Note* Bronwyn [...] obstruction Disposition: Observation Unit Patient Kennedy Kong [id number] to be placed in observation unit for [...] note was dictated with the assistance of [employer] dictation software. Attempts were made to proofread text, however some errors may still be present. Bronwyn Schaeffer MD Resident 10/10/23 0510 [facility] Work Phone: [phone] Emergency department Note* Dipti Patricia RN - 10/10/2023 1:38 AM EST Bed: E021 Expected date: Expected time: Means of arrival: Comments: triage [facility]12-20-2023 Emergency department Note* Lucy Ibarra RN - 10/09/2023 10:32 PM EST Pt to ED from OSH for SBO. Last BM approx 2 hrs ago, but hadn't fr 7 days prior to that. Vomited this am. Denies abd pain, nausea. 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 [facility] Other 12-15-2023 Evaluation note* Encounter Date Diagnosis [...] or fever. High fiber, low residue diet. [facility] Other 11-15-2023 Evaluation note* Encounter Date Diagnosis [...] - Z90.49) Secondary to IBD, in remission [facility] Other 11-01-2023 Evaluation note* Encounter Date Diagnosis [...] area clean. Duoderm may help protect area [facility] Other 11-01-2023 Evaluation note* Encounter Date Diagnosis Assessment Notes Treatment Notes Treatment Clinical Notes Aug, Pressure injury of sacral region, stage 1 (ICD-10 - L89.151) [facility] Other 10-17-2023 Evaluation note* Encounter Date Diagnosis Assessment Notes Treatment Notes Treatment Clinical Notes Jul, Dysuria (ICD-10 - R30.0) [facility] Other 10-13-2023 Evaluation note* Encounter Date Diagnosis [...] continue Tylenol, hot showers, avoid strenuous activity [facility] Other 09-18-2023 Evaluation note* Encounter Date Diagnosis [...] cancer (ICD-10 - Z85.51) No s/s recurrence [facility] Other 08-18-2023 Evaluation note* Encounter Date Diagnosis Assessment Notes Treatment Notes Treatment Clinical Notes May, Spider bite wound, accidental or unintentional, initial encounter (ICD-10 - T63.301A) May, Generalized muscle ache (ICD-10 - M79.10) May, Adverse reaction to statin medication (ICD-10 - T46.6X5A) May, Elevated cholesterol (ICD-10 - E78.00) [facility] Other 07-25-2023 Note [id number]:[address] [place] [address] 05-14-2023 NoteCustom Cystoscopy ? Voiding after the [...] if you have a fever over 100 degrees.[facility] 05-02-2023 Evaluation note* Encounter Date Diagnosis Assessment Notes Treatment Notes Treatment Clinical Notes Apr, Tinea pedis of both feet (ICD-10 - B35.3) [facility] Other 07-04-2023 Progress note Author Hang Pedersen [facility] April 23, 2023 9:24am Note Date/Time April 23, 2023 9:20a m [facility] [address] [place] [address] Cardiology Progress Note Signed Patient: Kennedy Kong MR#: [id number] : 1935 Acct:[id number] Age/Sex: 87 / M Adm Date: 3 Loc: Room: [address] [place] [address] Type: ADM IN Attending Dr: Kiki Motta [...] MPV Neut % (Auto) Lymph % (Auto) Greene % (Auto) Eos % (Auto) Baso % (Auto) Nucleat RBC Rel Count Neut # (Auto) Lymph # (Auto) Greene # (Auto) Eos # (Auto) Baso # (Auto) PHA Creatinine Clear Sodium Potassium Chloride Carbon Dioxide Anion Gap BUN Creatinine Est GFR (CKD-EPI) Glucose Calcium Troponin I High Sens 70152.8 H* 25320.7 H* 41871.2 H* Triglycerides Cholesterol LDL Cholesterol, Calc VLDL Cholesterol HDL Cholesterol Cholesterol/HDL Ratio 04/22/23 04/23/23 04/23/23 23:35 03:41 03:41 Corrected WBC 8.1 Uncorrected WBC Count 8.1 RBC 4.52 Hgb 13.4 Hct 40.6 MCV 89.8 MCH 29.7 MCHC 33.1 RDW 13.6 Plt Count 215 MPV 6.8 Neut % (Auto) 73.2 Lymph % (Auto) 10.5 Greene % (Auto) 14.1 Eos % (Auto) 1.5 Baso % (Auto) 0.7 Nucleat RBC Rel Count 0.1 Neut # (Auto) 5.9 Lymph # (Auto) 0.9 L Greene # (Auto) 1.1 H Eos # (Auto) 0.1 Baso # (Auto) 0.1 PHA Creatinine Clear 55.30 Sodium 137 Potassium 4.5 Chloride 106 Carbon Dioxide 25.0 Anion Gap 10.5 BUN 24 Creatinine 0.99 Est GFR (CKD-EPI) > 60.0 Glucose 110 H Calcium 8.7 Troponin I High Sens 41575.0 H* Triglycerides 97 Cholesterol 148 LDL Cholesterol, Calc 73 VLDL Cholesterol 19 HDL Cholesterol 56 Cholesterol/HDL Ratio 2.6 04/23/23 03:41 Corrected WBC Uncorrected WBC Count RBC Hgb Hct MCV MCH MCHC RDW Plt Count MPV Neut % (Auto) Lymph % (Auto) Greene % (Auto) Eos % (Auto) Baso % (Auto) Nucleat RBC Rel Count Neut # (Auto) Lymph # (Auto) Greene # (Auto) Eos # (Auto) Baso # (Auto) PHA Creatinine Clear Sodium Potassium Chloride Carbon Dioxide Anion Gap BUN Creatinine Est GFR (CKD-EPI) Glucose Calcium Troponin I High Sens 38923.2 H* Triglycerides Cholesterol LDL Cholesterol, Calc VLDL [...] Please make sure patient has follow-up in [facility] within 10 days. Pending a favorable [...] <Electronically signed by Hang Pedersen MD> 04/23/23923 [facility] Work Phone: 1(428) 638-308007-03-2023 Consult note Author W Eddie [facility] April 22, 2023 12:46pm Note Date/Time April 22, 2023 12:42 pm [facility] [address] [place] [address] Cardiology Consult Note Signed Patient: Kennedy Kong MR#: [id number] : 1935 Acct:[id number] Age/Sex: 87 / M Adm Date: 3 Loc: Room: [address] [place] [address] Type: ADM IN Attending Dr: Kiki Motta MD Copies to: MD Nestor Todd DO W Scott Sheldon, DO~ Cardiology HPI History of Present Illness Consult Date: 04/22/23 Reason for Consult: Non-ST elevation ME/ACS HPI: Mr. Kong is a 87 year old male seen in interventional cardiology consultation at request of hospitalist and gentleman who was transferred from [place] emergency room after being awakened with chest discomfort at 3 AM this morning. The discomfort radiated to his shoulder, back, left side; finally drove himself to the emergency room, he received 1 sublingual nitroglycerin with relief. Initial high-sensitivity troponin was elevated at 648; initial ECGs revealed sinus rhythm with J-point elevation in the inferolateral leads, however somewhat similar to previous remote ECG at [place] had on record Patient was excepted to the hospitalist service this morning. He did not receive any upstream heparin or antiplatelet therapies, [place] ECG and labs are reviewed there are [...] signed by Ko Morgan DO> 04/22/23 1246 [facility] Work Phone: 1(920) 573-158407-03-2023 [facility]07[facility]03[facility]2023 History and physical note Author Kiki Motta [facility] April 22, 2023 11:53am Note Date/Time April 22, 2023 11:10 am [facility] [address] [place] [address] Hospitalist H&P Signed Patient: Kennedy Kong MR#: [id number] : 1935 Acct:[id number] Age/Sex: 87 / M Adm Date: 3 Loc: Room: [address] [place] [address] Type: ADM IN Attending Dr: Kiki Motta [...] negative unless noted below or in HPI [facility] Attestation Statement: The following information was validated [...] signed by Kiki Motta MD> 04/22/23 [facility] [facility] Work Phone: 1(960) 659-176306-23-2023 Evaluation note* Encounter Date Diagnosis Assessment Notes Treatment Notes Treatment Clinical Notes Mar, Tinea pedis of both feet (ICD-10 - B35.3) Keep dry, cleanse socks daily and open to air at home. Use cream bid and take Lamisil qd x 14 days [facility] Other 04-19-2023 Evaluation note* Encounter Date Diagnosis Assessment Notes Treatment Notes Treatment Clinical Notes Jan, Carbuncle and furuncle of buttock (ICD-10 - L02.33) Warm compresses or warm soak. 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 Author [...] Temperature: No Drains: No documented in this encounter[facility] History of Present illness Narrative* Avel [...] problematic. - follow up as needed. Avel Camahco MD documented in this encounterAs[facility]ula [facility]03-13-2023 Evaluation note* Encounter Date Diagnosis Assessment [...] Diet adjustements to control constipation and diarrhea [facility] Other 03-09-2023 Evaluation note* Encounter Date Diagnosis Assessment Notes Treatment Notes Treatment Clinical Notes Dec, Anemia, unspecified type (ICD-10 - D64.9) [facility] Other 03-07-2023 Evaluation note* Encounter Date Diagnosis Assessment Notes Treatment Notes Treatment Clinical Notes Dec, Anemia, unspecified type (ICD-10 - D64.9) [facility] Other 01-13-2023 Evaluation + Plan note Diagnostic Tests Pending * [facility] Fish and Urine Cyto ([facility]) 11/02/22 [facility] 08-15-2022 Evaluation + Plan note Diagnostic Tests Pending * Uro[facility]ys[facility] Fish and Urine Cyto ([facility]) 06/04/22 [facility] 05-13-2022 Evaluation + Plan note Diagnostic Tests Pending * [facility] Fish and Urine Cyto ([facility]) 03/02/22 [facility] 03-21-2022 Evaluation + Plan note Diagnostic Tests Pending * [facility]ro[facility] Fish and Urine Cyto ([facility]) 01/08/22 [facility] discharge summary Author Kiki Motta [facility] April 23, 2023 11:20am Note Date/Time April 23, 2023 11:20 am [facility] [address] [place] [address] Discharge Summary Signed Patient: Kennedy Kong MR#: [id number] : 1935 Acct:[id number] Age/Sex: 87 / M Adm Date: 3 Loc: Room: [address] [place] [address]: Kiki Motta MD Copies to: [...] discharge: 04/23/23 03:41: Troponin I High Sens 92135.2 H* 04/23/23 03:41: PHA Creatinine Clear 55.30, [...] % (Auto) 73.2, Lymph % (Auto) 10.5, Greene % (Auto) 14.1, Eos % (Auto) 1.5, Baso % (Auto) 0.7, Nucleat RBC Rel Count 0.1, Neut # (Auto) 5.9, Lymph # (Auto) 0.9 L, Greene # (Auto) 1.1 H, Eos # (Auto) 0.1, Baso # (Auto) 0.1 04/22/23 23:35: Troponin I High Sens 65178.0 H* 04/22/23 20:04: Troponin I High Sens 91126.2 H* 04/22/23 17:07: Troponin I High Sens 29552.7 H* 04/22/23 14:25: Troponin I High Sens 63035.8 H* Exam Physical Exam Vital Signs: Temp [...] doctor or pharmacist, without first calling the clarification operator who implanted the stent. If you require [...] weight lifting, stair steppers, etc. until the clarification operator approves these activities. Check with the clarification operator on your first follow-up visit. CALL YOUR PHYSICIAN at [phone]: -If bleeding should occur from the catheter insertion site- apply pressure to the site then immediately call us. -Report any fever, redness, drainage, increased swelling, or firmness at the catheter insertion site. Some bruising or slight swelling may be present at the time of discharge. -Should arm or leg become cold, numb, white, or blue, contact the clarification operator immediately. -IF you should experience episodes of [...] is recommended. Please call Central Scheduling at [phone] to schedule your appointment.] The attending clarification operator or [facility] nurse clinician should provide you with specific instructions regarding activity, diet, medications, and further follow up for you. Follow the medication instructions provided on your discharge. If the dosages and instructions on this sheet differ from the dosage and instructions on the bottle, follow the instructions on the bottle. [facility] is not responsible for incorrect prescription information [...] signed by Kiki Motta MD> 04/23/23 [address] [facility] Work Phone: Evaluation + Plan note Future Appointments Appointment Date:12/10/2023 09:00:00 AM Scheduled Provider: Location:[facility] Appointment Type:URO Nurse Visit Appointment Date:12/16/2023 09:15:00 AM Scheduled Provider:Kylie DIETRICH MD Location:[facility] Appointment Type:[facility]O [facility] [place] [facility] [place] DataNoBoatbound Other Evaluation note* Diagnosis Irregular bowel habits- Primary Other specified disorder of intestines documented in this encounter [facility] Diagnosis Onset Date Resolution Status Colon cancer acute Essential hypertension acute NSTEMI (non-ST elevated myocardial infarction) acute [facility] Work Phone: Evaluation note* Diagnosis Small bowel obstruction- Primary Unspecified intestinal obstruction Abdominal pain, generalized [facility] information [facility] Work Phone: Evaluation note* Diagnosis Atherosclerosis of saxman coronary artery, unspecified whether angina present, unspecified whether saxman or transplanted heart 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 Non-ST elevation myocardial infarction (NSTEMI) (CMS/HCC) Acute myocardial infarction, subendocardial infarction, episode of care unspecified Hyperlipidemia, unspecified hyperlipidemia type History of colon cancer Personal history of malignant neoplasm of large intestine Never smoked any substance Malignant neoplasm of urinary bladder, unspecified site (CMS/HCC) documented in this encounter [facility] Work Phone: History general Narrative - Reported* [...] History Cystoscopy 12/2022 Hospitalization History see above [facility] Other Hislhid general Narrative - Reported* Type Description Date [...] the LCx 04/2023 Hospitalization History see above [facility] Other Hisiuov general Narrative - Reported* Type Description Date [...] Surgical History cancer Surgical History colonoscopy (2001, 2007, 2012, 2015, 2018 Surgical History Colectomy 2009 Surgical History scar tissue Surgical History CYSTOSCOPY 2021 Surgical History Cystoscopy 12/2022 Surgical History LHC, PCI/stent OM branch of the LCx 04/2023 Hospitalization History see above [facility] Other Hospital course Narrative No data available for this section [facility] Hospital Discharge instructions No data available for this section [facility] Hospital Discharge instructions Additional Instructions DISCHARGE [...] doctor or pharmacist, without first calling the clarification operator who implanted the stent. If you require [...] weight lifting, stair steppers, etc. until the clarification operator approves these activities. Check with the clarification operator on your first follow-up visit. CALL YOUR PHYSICIAN at [phone]: -If bleeding should occur from the catheter insertion site- apply pressure to the site then immediately call us. -Report any fever, redness, drainage, increased swelling, or firmness at the catheter insertion site. Some bruising or slight swelling may be present at the time of discharge. -Should arm or leg become cold, numb, white, or blue, contact the clarification operator immediately. -IF you should experience episodes of [...] is recommended. Please call Central Scheduling at [phone] to schedule your appointment.] The attending clarification operator or [facility] nurse clinician should provide you with specific instructions regarding activity, diet, medications, and further follow up for you. Follow the medication instructions provided on your discharge. If the dosages and instructions on this sheet differ from the dosage and instructions on the bottle, follow the instructions on the bottle. [facility] is not responsible for incorrect prescription information provided by the patient during their visit. Do not stop your medications without consulting your health care provider. 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 [address] [place] [phone] Referral ID Status Reason Start Date Expiration Date V isits Requested Visits Authorized [id number] New Request 10/10/2023 11/03/2024 1 1 [facility] Consultation (Routine) - Authorized Specialty Diagnoses / Procedures Referred By Contac t Referred To Contact Cardiology Diagnoses Atherosclerosis of saxman coronary artery, unspecified whether angina present, unspecified whether saxman or transplanted heart Stented coronary artery Non-ST elevation myocardial infarction (NSTEMI) ([facility]) Procedures Follow Up In Cardiology Adriel Morgan DO [address] [facility] 2, [address] [address] Adriel Morgan DO [address] [facility], [address] [place] [address] Referral ID Status Reason Start Date Expiration Date V isits Requested Visits Authorized [id number] Authorized 11/20/2023 11/19/2024 1 1 [facility] Work Phone: Reason for visit Narrative* Auth/Cert Specialty Diagnoses / Procedures Referred By Contac t Referred To Contact Diagnoses Bowel Obstruction Raulito Camacho MD [address] [place] [address] [facility] [address] [place] [address] Referral ID Status Reason Start Date Expiration Date Visits Re quested Visits Authorized [id number] 1 1 [facility] Summary Purpose Family History No Family History Records Found Relationship Condition Age at Onset Recorded Date/T [...] Mother, Father, Brother(V17.49, Z82.49) Status:Active Advance Directives No Advanced Directives Records Found Advance Directive Response Recorded Date/ Time Advance Directives No May 06 10:25am Latest Code Status on File Code Status Date Activated Date Inactivated Comments Full Code 11/04/2022 2:12 AM Advance Directive Response Recorded Date/ Time Advance Directives No May 06 9:25am Procedure Findings Note MR#: [id number] [facility] Pt. Name: Kennedy Kong Surgery Date: [...] (more content not included)... Note MR#: [id number] [facility] Pt. Name: Kennedy Kong Surgery Date: 04/16/2019 Room #: Z0 Date of : 1935 PROCEDURE NOTE ATTENDING: Gabriel Perez M.D. BUILDING REPAIR MAINTENANCE SUPERVISOR: Marilee Jiménez M.D. PROCEDURE: Colonoscopy with polypectomy [...] gentleman who returns following recent non-ST elevation ME due to occluded obtuse marginal branch with primary revascularization with drug-eluting stent and is doing well. He has mild LV dysfunction, No significant coronary disease, ejection fraction of 45%. 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, his daily activities include lifting up to [...] section and content) DATE CREATED AUTHOR 04/16/2018 [facility] DATE CREATED AUTHOR AUTHOR'S ORGANIZ ATION 04/25/2019 [facility] DATE CREATED AUTHOR AUTHOR'S ORGANIZ ATION 11/04/2019 [facility] DATE CREATED AUTHOR AUTHOR'S ORGANIZ ATION 12/28/2022 [facility] DATE CREATED AUTHOR AUTHOR'S ORGANIZ ATION 01/23/2023 [facility] DATE CREATED AUTHOR AUTHOR'S ORGANIZ ATION 01/23/2023 [facility] DATE CREATED AUTHOR AUTHOR'S ORGANIZ ATION 05/03/2023 [facility] DATE CREATED AUTHOR AUTHOR'S ORGANIZ ATION 06/27/2023 [facility] DATE CREATED AUTHOR AUTHOR'S ORGANIZ ATION 09/17/2023 [facility] DATE CREATED AUTHOR AUTHOR'S ORGANIZ ATION 10/27/2023 [facility] DATE CREATED AUTHOR AUTHOR'S ORGANIZ ATION 11/24/2023 [facility] DATE CREATED AUTHOR AUTHOR'S ORGANIZ ATION 12/11/2023 [facility] (unrecognized sect ion and content) Race Car Driver Relationship Specialty Start Date End Date Nestor [...] MD Other Provider Active Misty Rothman , [facility] Other Provider Active Endy Arevalo MD Other Provider Active Lucio Dillon MD Other Provider Active Ko Morgan DO Other Provider Active Christy Love APRN Other Provider Active Hannah Abraham MD Other Provider Active Race Car Driver Relationship Specialty Start Date End Date Jimmy Estrella MD [address] [place] [phone] PCP - General Family Medicine 11/03/22 Team Status: Inactive Member Role Status Dates Nestor Estrella DO Primary Care Provider Active Zofia Gates MD Attending Provider Active Race Car Driver Relationship Specialty Start Date End Date Nestor Estrella DO [address] [place] [address] PCP - General Internal Medicine 11/20/23 Race Car Driver Relationship Specialty Start Date End Date Jimmy Estrella MD [address] [place] [phone] PCP - General Family Medicine 11/03/22 REASON FOR VISIT (unrecogniz ed section and content) Opinion Reason Comments Follow-up 6 months 4 month Follow upGI REFERRAL CONSULT Specialty Diagnoses / Procedures Referred By Mart hale Referred To Contact Diagnoses SBO [facility] [address] [place] [address] [facility] [address] [place] [address] Referral ID Status Reason Start Date Expiration Date Visits Re quested Visits Authorized [id number] 1 1 PATIENT IS HERE AT THE REQUEST OF DR. ESTRELLA HX OF BOWEL RESECTION. DR GATES REVIEW REFER AND SAID HEWANTED TO SEE PT IN OFFICE AND GO OVER HISTORY1 month Follow upGI Question2 Week Check Upfinish medicationTB ER FOLLOW UPPossible Medication ChangeAnkles, Knees, BPWants [...] or prosecute any alcohol or drug abuse patient.[facility] Scheduled Active and Recently Administ ered [...] BE BASED ON THE PRIMARY CLINICAL RECORDS. [employer] provides no warranty or guarantee of the accuracy or completeness of information in this document.
--- NOTE | 2023-12-14 02:28 | ED_ITS ---
HPI - Male Genitourinary General Chief complaint: Urogenital-Male Stated complaint: UTI Time Seen by Provider: 12/14/23 02:08 Source: patient Mode of arrival: walk-in Limitations: no limitations History of Present Illness HPI Narrative: Patient had surgery in [place] with Dr Julien on 12/05/23 to remove bladder polyps. Patient had been off Plavix prior to the procedure and then restarted the Plavix 2 days ago. he noted blood in the anderson bag and complained that he felt pain in the urethra and that the urine was bloody. Tonight he had blood come out of the urethra around the anderson catheter. He is scheduled to see Dr Julien in 2 days to have the anderson removed. Related Data Home Medications Medication Instructions Recorded Confirmed tamsulosin 0.4 mg capsule 0.4 mg PO DAILY 04/22/23 12/14/23 aspirin 81 mg tablet,delayed 81 mg PO DAILY 10/09/23 12/14/23 release carvedilol 6.25 mg tablet 6.25 mg PO Q12H 10/09/23 12/14/23 clopidogrel 75 mg tablet 75 mg PO DAILY 10/09/23 12/14/23 rosuvastatin 40 mg tablet 40 mg PO DAILY 10/09/23 12/14/23 potassium chloride 20 mEq 20 meq PO DAILY 11/29/23 12/14/23 tablet,extended release(part/cryst) Previous Rx's Medication Instructions Recorded cephalexin 500 mg capsule 500 mg PO BID 7 days #13 caps 12/14/23 Allergies Allergy/AdvReac Type Severity Reaction Status Date / Time No Known Drug Allergies Allergy Verified 11/29/23 08:25 [facility] Medical History (Updated 12/14/23 @ 03:34 by Gurpreet Callejas) Extremity edema ?R60.0 - Localized edema (ICD-10) Hydrocele ?N43.3 - Hydrocele, unspecified (ICD-10) Hypertension ?I10 - Essential (primary) hypertension (ICD-10) Bladder cancer ?C67.9 - Malignant neoplasm of bladder, unspecified (ICD-10) Bladder tumor ?D49.4 - Neoplasm of unspecified behavior of bladder (ICD-10) Atherosclerosis of karuk coronary artery ?I25.10 - Atherosclerotic heart disease of kar[place] coronary artery without angina pectoris (ICD-10) Small bowel obstruction ?K56.609 - Unspecified intestinal obstruction, unspecified as to partial versus complete obstruction (ICD-10) NSTEMI (non-ST elevated myocardial infarction) (~04/2023) ?I21.4 - Non-ST elevation (NSTEMI) myocardial infarction (ICD-10) Trigeminal neuralgia ?G50.0 - Trigeminal neuralgia (ICD-10) Osteoarthritis ?M19.90 - Unspecified osteoarthritis, unspecified site (ICD-10) Skin cancer ?C44.90 - Unspecified malignant neoplasm of skin, unspecified (ICD-10) Colon cancer ?C18.9 - Malignant neoplasm of colon, unspecified (ICD-10) High cholesterol ?E78.00 - Pure hypercholesterolemia, unspecified (ICD-10) PVD (peripheral vascular disease) ?I73.9 - Peripheral vascular disease, unspecified (ICD-10) BPH (benign prostatic hyperplasia) ?N40.0 - Benign prostatic hyperplasia without lower urinary tract symptoms (ICD-10) Chronic kidney disease ?N18.9 - Chronic kidney disease, unspecified (ICD-10) Surgical History (Updated 11/29/23 @ 08:37 by Emeli Burgos NP) History of hydrocelectomy ?Z98.890 - Other specified postprocedural states (ICD-10) H/O cardiac catheterization ?Z98.890 - Other specified postprocedural states (ICD-10) S/P arterial stent ?Z95.9 - Presence of cardiac and vascular implant and graft, unspecified (ICD-10) S/P cataract extraction and insertion of intraocular lens ?Z98.49 - Cataract extraction status, unspecified eye (ICD-10) ?Z96.1 - Presence of intraocular lens (ICD-10) History of colonoscopy ?Z98.890 - Other specified postprocedural states (ICD-10) S/P cystoscopy ?Z98.890 - Other specified postprocedural states (ICD-10) Family History (Updated 11/29/23 @ 08:37 by Emeli Burgos NP) Other Family history of DVT Family history of colon cancer Social History (Updated 11/29/23 @ 08:30 by Emeli Burgos NP) Within the past year, how often did you have a drink containing alcohol: monthly or less Smoking status: Never smoker Highest level of school completed/degree received: high school graduate Exam Narrative Exam Narrative: Nurses notes and vital signs reviewed and patient is not hypoxic. Afebrile General: Well-appearing and in no apparent distress. Skin: Warm, dry, no pallor noted. No rash. Eye: Pupils are equal, round and EOMI. No scleral icterus. Cardiovascular: Regular Rate and Rhythm without murmur, gallop or rub. Respiratory: No accessory muscle use or respiratory distress. Lungs are clear to auscultation, no wheezing, rales or rhonchi GI: Abdomen is soft, non-distended. Normal bowel sounds. No masses appreciated . No tenderness to palpation. No rebound, guarding, or rigidity noted. Genital: dried blood at the urethra meatus. Anderson bag with dark urine and some bloody clots Neurological: A&O x4. No cranial nerve dysfunction observed. No truncal ataxia. Moves all extremities. Sensation intact. Psychiatric: Cooperative and interactive. Normal mood and affect. Constitutional Vital Signs, click to edit/add: Last Vital Signs Temp 98.7 F 12/14/23 02:09 Pulse 63 12/14/23 02:09 Resp 18 12/14/23 02:09 BP 132/70 12/14/23 02:09 Pulse Ox 98 12/14/23 02:09 O2 Del Method Room Air 12/14/23 02:09 Course Vital Signs Vital signs: Vital Signs Temperature 98.7 F 12/14/23 02:09 Pulse Rate 63 12/14/23 02:09 Respiratory Rate 18 12/14/23 02:09 Blood Pressure 132/70 12/14/23 02:09 Pulse Oximetry 98 12/14/23 02:09 Oxygen Delivery Method Room Air 12/14/23 02:09 Temperature 98.7 F 12/14/23 02:09 Pulse Rate 63 12/14/23 02:09 Respiratory Rate 18 12/14/23 02:09 Blood Pressure 132/70 12/14/23 02:09 Pulse Oximetry 98 12/14/23 02:09 Oxygen Delivery Method Room Air 12/14/23 02:09 MDM - Male Genitourinary MDM Narrative Medical decision making narrative: ED nurse changed out the bag - left anderson in place - and a fresh sample of urine was sent for urinalysis. After urine obtained then the ED nurse flushed/irrigated the bladder through the anderson. UA = nitrite, leuk est, 5-10wbc, 50-75RBC, mod bact. Urine culture pending. Patient discharged home with prescription for keflex and recommendation to see urologist for follow up as scheduled. . Lab Data Attestation: I reviewed the patient's lab results. Labs: Lab Results 12/14/23 Range/Units 03:02 Urine Color Brown A (YELLOW) Urine Clarity Clear (CLEAR) Urine pH 6.0 (5.0-9.0) Ur Specific [place] >=1.030 A (1.005-1.025) Urine Protein 100 A (NEG/TRACE) mg/dL Urine Glucose (UA) Negative (NEGATIVE) mg/dL Urine Ketones Negative (NEGATIVE) mg/dL Urine Occult Blood Large A (NEGATIVE) Urine Nitrite Positive A (NEGATIVE) Urine Bilirubin Negative (NEGATIVE) Urine Urobilinogen 0.2 (0.2-1.0) EU/dL Ur Leukocyte Esterase Small A (NEGATIVE) Urine RBC 50-75 A (0-2) #/HPF Urine WBC 5-10 A (NONE SEEN) #/HPF Ur Squamous Epith Cells None seen (NONE/RARE) #/LPF Urine Crystals Seen A (None Seen) #/HPF Amorphous Sediment Few Urine Bacteria Moderate A (NONE SEEN) #/HPF Urine Casts None seen (NONE SEEN) #/LPF Urine Mucus Small A (NONE SEEN) Ur Culture Indicated? Yes Discharge Plan Discharge Chief Complaint: Urogenital-Male Clinical Impression: Urinary tract infection Patient Disposition: Home, Self-Care Time of Disposition Decision: 03:33 Prescriptions / Home Meds: New cephalexin 500 mg capsule 500 mg PO BID 7 Days Qty: 13 0RF No Action tamsulosin 0.4 mg capsule 0.4 mg PO DAILY carvedilol 6.25 mg tablet 6.25 mg PO Q12H clopidogrel 75 mg tablet 75 mg PO DAILY aspirin 81 mg tablet,delayed release (DR/EC) 81 mg PO DAILY rosuvastatin 40 mg tablet 40 mg PO DAILY potassium chloride 20 mEq tablet,ER particles/crystals 20 meq PO DAILY Instructions: Urinary Tract Infection in Older Adults (ED) Stand Alone Forms: Portal Instructions Referrals: Nestor Art DO [Primary Care Provider] - 1 week
--- NOTE | 2023-12-14 03:07 | PC.NURSE ---
Urine to lab, cloudy light yellow tinge of red.
[2023-12-14 03:09] LABS: Bilirubin Urine NEGATIVE (NEGATIVE); Blood Urine LARGE (NEGATIVE); Clarity Urine CLEAR (CLEAR); Color Urine BROWN (YELLOW); Glucose Urine UA NEGATIVE (NEGATIVE); Ketones Urine NEGATIVE (NEGATIVE); Leukocyte Esterase Urine SMALL (NEGATIVE); Nitrite Urine POSITIVE (NEGATIVE); Protein Urine 100 mg/dL (NEG/TRACE); Specific Gravity Urine >=1.030 (1.005-1.025); Urobilinogen Urine 0.2 EU/dL (0.2-1.0)
[2023-12-14 03:12] LABS: Urine Microscopic Indicated YES
[2023-12-14 03:15] LABS: Bacteria Urine MODERATE #/HPF (NONE SEEN); Mucus Urine SMALL (NONE SEEN); RBC Urine 50-75 #/HPF (0-2)
[2023-12-14 03:16] LABS: Amorphous Sediment Urine FEW; Cast Seen? NONE SEEN #/LPF (NONE SEEN); Crystals Seen? Seen #/HPF (None Seen); Squamous Epithelial Cell Urine NONE SEEN #/LPF (NONE/RARE); Urine Culture Indicated YES
[2023-12-14] MEDS: CEPHALEXIN 500 MG CAPSULE PO (04:15)
== END 2023-12-14 04:20 | disposition home or self-care (01) ==
PROVIDERS: Emergency Provider Emergency Medicine; PCP Internal Medicine
DX: N39.0 Urinary tract infection, site not specified (principal); I25.10 Atherosclerotic heart disease of native coronary artery without angina pectoris; G50.0 Trigeminal neuralgia; M19.90 Unspecified osteoarthritis, unspecified site; E78.00 Pure hypercholesterolemia, unspecified; I73.9 Peripheral vascular disease, unspecified; N40.0 Benign prostatic hyperplasia without lower urinary tract symptoms; I12.9 Hypertensive chronic kidney disease with stage 1 through stage 4 chronic kidney disease, or unspecified chronic kidney disease; N18.9 Chronic kidney disease, unspecified; Z98.890 Other specified postprocedural states; I25.2 Old myocardial infarction; Z96.0 Presence of urogenital implants; Z79.82 Long term (current) use of aspirin; Z85.828 Personal history of other malignant neoplasm of skin; Z85.038 Personal history of other malignant neoplasm of large intestine; Z79.899 Other long term (current) drug therapy; Z79.02 Long term (current) use of antithrombotics/antiplatelets; Z85.51 Personal history of malignant neoplasm of bladder
CPT/HCPCS: 81001; 87086; 87150; 87186; 99283

== ENCOUNTER 2023-12-17 06:39 | Outpatient (OUT) | payer MEDICARE, SELFPAY ==
--- OUTSIDE RECORDS SUMMARY | 2023-12-17 06:42 | XMS_ITS | CCD ---
Author Name Unknown Address [address] [place] [address] Organization [facility] Care Team Providers Care Telegraph Repeater Technician Name Role Phone ADRIEL RIOS Unavailable NESTOR Vela Unavailable ADRIEL Malik Unavailable NESTOR Vela Unavailable NESTOR Vela Primary Care Physician JIMMY ESTRELLA Primary Care Unavailable ALZTYLER GUYIL [...] Unavailable MD Peyton Norman Other Provider Lorna [facility] Misty Soriano Other Provider MD Endy Arevalo Other Provider MD Lucio Dillon Other Provider DO Ko Morgan Other Provider MIGUEL White Other Provider MD Hannah Abraham Other Provider [phone] Nestor Estrella Unavailable Unavailable Unavailable Dr. Adriel Morgan Attending Raegan Estrella, Dr. Nestor Lovelace [facility] Marcella Estrella, Dr. Nestor Lovelace [facility] Marcella Morgan, Dr. Adriel Pierre Referring Raegan Morgan, Dr. Adriel Pierre Attending Raegan Estrella, Dr. Nestor Lovelace [facility] Marcella Morgan, Dr. Adriel Pierre Attending Raegan Estrella, Dr. Nestor Lovelace [facility] Marcella weeks Asaad, Imad Unavailable Jimmy [...] [employer] Unavailab Ko Piper Consulting Unavailable Chirsty White Consulting Unavailable Hannah Abraham Consulting Unavailable [...] [AMOXICILLIN] Drug Allergy 04-28-2013 Other: See Comments [facility] Medications Current Medications Medication Drug Class(es) Dates Sig (Normalized) Sig (Original) aspirin 81 mg chewable tablet (20 sources) Platelet Aggregation Inhibitor, Nonsteroidal Anti-inflammatory Drug Start: 11-20-2023 End: 11-19-2024 aspirin 81 mg chewable tablet Indications: Atherosclerosis of chipewwa coronary artery, unspecified whether angina present, unspecified whether chipewwa or transplanted heart , Stented coronary artery , Non-ST elevation myocardial infarction (NSTEMI) ([facility]) Chew 1 tablet (81 mg) once daily. [...] Start: 05-02-2023 take 2 tablets by mo [facility] every twelve hours Carvedilol 6.25 MG 2 [...] capsule (20 sources) take [address] capsule by [facility] every twenty-four hours Stool Softener 100 MG [...] procedure, # 6 tab(s), Refills(s) 0, [id number], cm, 09/01/21 10:42:00 EST, Height/Length Dosing, 78, kg, 09/01/21 10:42:00 EST, W... Start Date: 12/07/22 Status: Ordered Start: 10-26-2022 take 1 tablet by dianne th once daily Cipro 250 mg Tab 250 mg = 1 tab(s), Oral, Daily, Take 1 tablet the day before the procedure and 1 tablet after the procedure, # 2 tab(s), Refills(s) 0, [id number] 178, cm, 09/01/21 10:42:00 EST, Height/Length Dosing, 78, kg, 09/01/21 10:42:00 EST, W... Start Date: 10/26/22 Status: Ordered Start: 03-01-2022 take 1 tablet by dianne th once daily Cipro 500 mg Tab 500 mg = 1 tab(s), Oral, Daily, Take 1 tablet the day before the procedure and 1 tablet after the procedure, # 2 tab(s), Refills(s) 0, [id number] 178, cm, 09/01/21 10:42:00 EST, Height/Length Dosing, 78, kg, 09/01/21 10:42:00 EST, W... Start Date: 03/01/22 Status: Ordered Start: 12-07-2021 take 1 tablet by dianne th once daily Cipro 500 mg Tab 500 mg = 1 tab(s), Oral, Daily, Take 1 tablet the day before procedure and 1 tablet after the procedure, # 2 tab(s), Refills(s) 0, Pharmacy: [facility], 178, cm, 09/01/21 10:42:00 EST, Height/Length [...] route three times daily as needed Ipratropium [place] 0.06 % 2 sprays in each nostril Nasally Three times a day Not-Taking/PRN take 2 spray(s) nasa l route three times daily Ipratropium [place] 0.06 % 2 sprays in e ach [...] [Coronary atherosclerosis of unspecified type of vessel, chipewwa or graft] Onset: 06-25-20 Chronic Coronary atherosclerosis [...] 01-10-2003-28-2020 Chronic Other aftercare (2 sources) Other skilled nursing (current) drug therapy; Translations: [OTH 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 CURRENT DRUG THERAPY] Onset: 01-23-20 Episodic Other [...] Facility IntraOperative Documentson 0 12-11-2023 IntraOperative Documents [id number] 7#1.00TIFF [facility] Postoperative Documentson Postoperative Documents [id number] 19#1.00TIFF [facility] Consent for Anesthesiaon Consent for Anesthesia [id number] 5#1.00TIFF [facility] Consultation Noteon 02-16-20 24 Consultation Note [id number] #1.00TIFF Normal [facility] Discharge Instructionson Discharge Instructions [id number] 7#1.00TIFF Normal [facility] IntraOperative Documentson 0 12-06-2023 IntraOperative Documents [id number] 9#1.00TIFF Normal [facility] Main OR Intraoperative Recor don 12-06-2023 Main OR Intraoperative Record IntraOp Document Type FT Summary Primary Physician: Kylie DIETRICH MD Finalized Date/Time: 12/06/23 11:15:59 Pt. Name: KENNEDY KONG /Sex: 1935 Male Med Rec #: [id number] Physician: Kylie DIETRICH MD Financial #: [id number] Pt. Type: A Room/Bed: [place] [address] Admit/Disch: 12/05/23 10:01:50 - 12/05/23 15:00:00 Institution: [...] 2 Entry 3 Case Attendee Mitliz DNP, OFFICE INSPECTOR, Queen KARLO CHOI, Shar Reyes Ii Role Performed OFFICE INSPECTOR Surgeon - Primary Behavioral Health Rn - Primary Time In 12/05/23 11:33:00 12/05/23 11:33:00 12/05/23 11:33:00 Time Out 12/05/23 12:46:00 12/05/23 12:46:00 12/05/23 12:46:00 Procedure CYSTOSCOPY CYSTOSCOPY CYSTOSCOPY TURB(Bilateral), TURB(Bilateral), TURB(Bilateral), CYSTOSCOPY CYSTOSCOPY CYSTOSCOPY URETEROSCOPY(Bilater al), URETEROSCOPY(Bilater al), URETEROSCOPY(Bilater al), CYSTOSCOPY URETHRAL CYSTOSCOPY URETHRAL CYSTOSCOPY URETHRAL DILATATION(Bilateral ) DILATATION(Bilateral ) DILATATION(Bilateral ) Comments dr mart supervising out of room for lunch [id number] Last Modified By: Shar Montanez Ii, Alfons Ii F Letrondo, Alfons Ii Luis M 12/05/23 12:51:32 12/05/23 12:51:32 12/05/23 12:51:32 Entry 4 Entry 5 Entry 6 Case Attendee Umu BOILER WASHER, Jaswinder Munoz RN, Lashaun Munoz BOILER WASHER, Chrystal Keene Role Performed Scrub - Primary Behavioral Health Rn - Relief Scrub - Relief Time In 12/05/23 11:33:00 12/05/23 11:40:00 12/05/23 11:50:00 Time Out 12/05/23 12:46:00 12/05/23 12:30:00 12/05/23 12:25:00 Procedure CYSTOSCOPY CYSTOSCOPY CYSTOSCOPY TURB(Bilateral), TURB(Bilateral), TURB(Bilateral), CYSTOSCOPY CYSTOSCOPY CYSTOSCOPY URETEROSCOPY(Bilater al), URETEROSCOPY(Bilater al), URETEROSCOPY(Bilater al), CYSTOSCOPY URETHRAL CYSTOSCOPY URETHRAL CYSTOSCOPY URETHRAL DILATATION(Bilateral ) DILATATION(Bilateral ) DILATATION(Bilateral ) Comments out of room for lunch [id number] Last Modified By: Shar Montanez Ii, Alfons [...] PreOp Antibiotic Yes Time Out Ori DNP, OFFICE INSPECTOR, Queen Ashley Mena, KARLO CHOI, Lisseth Carrera [...] Classifies surgic (more content not included)... Normal [facility] Physician Orderon 12-06-2023 Physician Order [id number] 7#1.00TIFF Normal [facility] Preoperative Documentson Preoperative Documents [id number] 4#1.00TIFF Normal [facility] Progress Note-Physicianon Progress Note-Physician Patient: KENNEDY KONG [...] UTI (urinary tract infection) / SNOMED CT 251252668 / Confirmed Urinary incontinence / SNOMED CT 6693300056 / Confirmed Trigeminal neuralgia of right side of face / SNOMED CT 01075351 / Confirmed Chronic venous insufficiency / SNOMED CT 72812238 / Confirmed Osteoarthritis of right hip / SNOMED CT 6257401740 / Confirmed Bladder tumor / SNOMED CT 528760 / Confirmed Myocardial infarct / SNOMED CT 59617570 / Confirmed Bladder cancer / SNOMED CT 3589042156 / Confirmed Lumbar spondylosis / SNOMED CT 383429627 / Confirmed Hyperlipidemia / SNOMED CT 39852360 / Confirmed Right hip pain / SNOMED CT 23563114 / Confirmed History of ulcerative colitis / SNOMED CT 120443880 / Confirmed Gross hematuria / SNOMED CT 405120663 / Confirmed Hydrocele / SNOMED CT 1812088609 / Confirmed Renal cyst / SNOMED CT 0711771870 / Confirmed Coronary artery disease / SNOMED CT 49724410 / Confirmed Chronic kidney disease / SNOMED CT 1201094579 / Confirmed 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 TURBT - with left ureteroscopy and left stent placement ([id number]) on 05/26/2020 at 84 Years. Hydrocelectomy (83857750) in 2001 at 67 Years. colon resection. colonoscopy. Cataract ([id number]). Comments: 10/17/2010 12:31 EST - Martha Mazariegos left Cardiac catheterization with stent ([id number]). Social History Social & Psychosocial Habits Alcohol [...] adequate air exchange. Cardiovascular: Regular rhythm. Plan [place] [employer] Anesthesiologists (ASA) physical status classification: Class III. Anesthetic Preoperative Plan: Anesthesia General. Normal [facility] Comment on above: Result Comment: Elec tronically Signed By: Maksim Mart Jr, DO\.br\Date and Time Signed: 12/06/23 15:53 EST Progress Note-Physician Patient: KENNEDY KONG Age: 88 years Sex: Male : 1935 Associated Diagnoses: None Author: Maksim Mart Jr, DO Postoperative Information Postoperative disposition: Postoperative disposition: To PACU. Optimetrix number: Optimetrix number [id number]. Anesthetic utilized: General. Health Status Allergies: Allergic [...] when meets criteria ( To home ). [facility] Comment on above: Result Comment: Elec tronically Signed By: Maksim Mart Jr, DO\.br\Date and Time Signed: 12/06/23 15:51 EST Consent for Procedure/Surger yon 12-05-2023 Consent for Procedure/Surgery [id number] 6#1.00TIFF [facility] Consent for Treatmenton 11-21 Consent for Treatment [id number] #1.00TIFF [facility] Discharge Instructionson Discharge Instructions KENNEDY KONG :1935 [...] bleeding, Temperature above 101.5 degrees Pharmacy Information [facility] Discharge Instructions Discharge Instructions Previously Scheduled Follow-Up Appointments Saturday 9:00 AM EST With: Where: [facility] Normal [address] [place] [address]- \.br\ Medications\.b r\ What How Much When [...] including vitamins, herbs, eye drops, creams, and tfhg-pwt-sqfum er medicines.\.br \ ? \.br\ Any problems [...] you to take them.\.br\ ? \.br\ Taking lnvv-apl-kvjey er medicines, vitamins, herbs, and supplements.\. br\ [...] of the resectoscope.\ .br\ ? \.br\ A [facility] Comment on above: Result Comment: Elec tronically Signed By: Jamel ANDERSON, Benedicto Cortez\.br\Date and Time Signed: 12/05/23 13:38 EST H&P Updateon 12-05-2023 H&P Update [id number] 0#1.00TIFF Normal [facility] Main OR PACU I Recordon 11-21 Main OR PACU I Record PACU Phase I Document Type FT Summary Primary Physician: Kylie DIETRICH MD Finalized Date/Time: 12/05/23 13:31:22 Pt. Name: KENNEDY KONG /Sex: 1935 Male Med Rec #: [id number] Physician: Kylie DIETRICH MD Financial #: [id number] Pt. Type: A Room/Bed: AS13/ Admit/Disch: 12/05/23 [...] By: Lexi Donnelly RN 12/05/23 13:31 Normal [facility] Main OR Preoperative Recordo n 12-05-2023 Main OR Preoperative Record PreOp Document Type FT Summary Primary Physician: Kylie DIETRICH MD Finalized Date/Time: 12/05/23 11:52:12 Pt. Name: KENNEDY KONG /Sex: 1935 Male Med Rec #: [id number] Physician: Kylie DIETRICH MD Financial #: [id number] Pt. Type: A Room/Bed: [facility]/ Admit/Disch: 12/05/23 10:01:50 - Institution: Case Times [...] By: Shar Montanez Ii 12/05/23 11:52 Normal [facility] Monitor Recordon 12-05-2023 Monitor Record [id number] 0#1.00TIFF Normal [facility] Monitor Record [id number] 3#1.00TIFF Normal [facility] Operative Reporton Operative Report Patient: KENNEDY KONG Age: 88 years Sex: Male : 1935 Associated Diagnoses: None Author: Kylie DIETRICH MD Postoperative Information Procedure: 1. Cystoscopy. 2. Urethral dilation with Ochoa sounds to 30 Japanese. 3. Transurethral resection of bladder tumor approximately [...] ureter.. Specimens Removed: Bladder tumor. Prosthesis: 22 Japanese Saldaña catheter. . Estimated Blood Loss: 5 [...] fashion. 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 I then passed a Glidewire through the scope and then through the lumen of the stricture and into the bladder. I then removed the scope. I then used Ochoa sounds and dilated him from 20 Japanese up to 30 Japanese. I then was able to pass the [...] the cystoscope. I then passed a 26 Japanese Olympus resectoscope with the standard bipolar loop [...] the resectoscope. I then passed a 22 Japanese Saldaña catheter over the wire into the bladder. The wire was removed and 15 cc of fluid was placed in the balloon. It drained clear. The anesthetic was then reversed. He was then transferred to a gurney bed and wheeled to PACU in stable condition.. Normal [facility] Comment on above: Result Comment: Elec tronically Signed By: KARLO CHOI, Kylie Restrepo\.br\Date and Time Signed: 12/05/23 12:56 EST Outside Recordson 12-05-2023 Outside Records [id number] 2#1.00TIFF Normal [facility] Patient Education - Texton 0 12-05-2023 Patient [...] cotton underwear to absorb moisture and keep stretcher and drier. 6. Keep the drainage bag below the [...] is th (more content not included)... Normal [facility] ECG 12-Leadon 12-02-2023 ECG 12-Lead [id number] #1.00TIFF Normal [facility] Lab Reportson 12-02-2023 Lab Reports [id number] #1.00TIFF Normal [facility] Lab Reports [id number] #1.00TIFF [facility] RAD - MISCon 11-29-2023 RAD - MISC [id number] #1.00TIFF [facility] Consent for Procedure/Surger yon 11-18-2023 Consent for Procedure/Surgery [id number]# 1.00TIFF [facility] Consent for Procedure/Surger yon 11-15-2023 Consent for Procedure/Surgery [id number]# 1.00TIFF [facility] Reminderson 11-14-2023 Reminders - From: Lucero Sutherland To: EU - Recalls Dietrich; Cc: Lucero Sutherland; Sent: 11/14/2023 13:20:30 EST Show up: 01/20/2024 13:20:00 EDT Subject: cysto/fish/cytol Due Date/Time: 02/10/2024 13:20:00 EDT Reminder/Recall Patient will be due in February 2024 for 3 month cysto/fishc/ytol [facility] Reminderson 11-13-2023 Reminders - From: Lucero [...] home machine.LG Patient sched for 12/05/23 at [facility]. Confirmation mailed to pt.LG [facility] Consultation Noteon 11-12-19 Consultation Note [id number] #1.00TIFF Normal [facility] Formson 11-08-2023 Forms [id number] #1.00TIFF Normal [facility] Blood Urea Nitrogenon 2023 Urea nitrogen [Mass/Vol] 19 mg/dL Normal 7-25 [facility] Comment on above: Order Comment: STAT FOR CT Performed By: #### C REAT, BUN #### [address] enterographyon 10-23-2023 CT enterography [facility] [place] [address] [place] [address] CT Scan Report Signed Patient: Kennedy Kong MR#: [id number] 1435 : 1935 Acct:[id number] Age/Sex: 88 / M ADM Date: 10/23/23 Loc: CT Room: Type: [facility] Attending Dr: Zofia Gates MD Copies to: [...] M.D.10/23/2023 4:06 PM Dictation Location: [place] [address] Transcribed By: [facility] 10/23/23 1606 Dictated By: Randal Villarreal DO 10/23/23 1549 Signed By: 10/23/23 1606 Normal [facility] Calprotectin, Fecalon 2023 Calprotectin, Fecal 35 Normal 0-120 [facility] Comment on above: Result Comment: Conc entration Interpretation Follow-Up < 5 - 50 ug/g Normal None >50 -120 ug/g Borderline Re-evaluate in 4-6 weeks >120 ug/g Abnormal Repeat as clinically indicated Performed at: [facility] - [facility] [address], [place], [place] [id number] Laboratory Apparatus Glass Blower: Danielle Carrington MD, Phone: [phone] PERFORMED BY: [place] [address] PATHOLOGIST PIECE HAND JAMIE MADISON M.D. Performed By: #### H S TROP, LIPID, CBC, BMP #### [place] [address] [place] Creatinineon 10-23-2023 Creatinine [Mass/Vol] 1.05 mg/dL Normal 0.70-1.30 [facility] Comment on above: Order Comment: STAT FOR CT Performed By: #### H S TROP, LIPID, CBC, BMP #### [place] [address] [place] GFR/1.73 sq M.predicted MDRD (S/P/Bld) [Vol rate/Area] mL/min/{1.73_m2} Normal [facility] Comment on above: Order Comment: STAT FOR CT Result Comment: PERF ORMED BY: [place] [address] PATHOLOGIST PIECE HAND JAMIE MADISON M.D. Performed By: #### H S TROP, LIPID, CBC, BMP #### [address] Creatinine [Mass/volume] in Serum or PlasmaOrdered By: Imad Asaad on 10-23-2023 Creatinine [Mass/Vol] 1.05 mg/dL 0.70-1.30 [facility] No Panel InformationOrdered By: Imad Asaad on 10-23-2023 Estimated GFR (CKD-EPI) > 60.0 mL/Min [facility] Creatinine Clearance (Chem N/A [facility] Urea nitrogen [Mass/volume] in Serum or PlasmaOrdered By: Imad Asaad on 10-23-2023 Urea nitrogen [Mass/Vol] 19 mg/dL 7 [facility] LACTATE, BLOODOrdered By: Sa ceasar Dorsey on 10-10-2023 Interpretation and review of laboratory results Normal [facility] Lactate [Moles/Vol] 1.6 mmol/L 0.5 - 1. 6 mmol/L [facility] LT BLUE TOP TUBEon [facility] CBC AND ELECTRONIC DIFFon Basophils (Bld) [#/Vol] K/uL 0.00 - 0.09 K/uL [facility] Basophils/100 WBC (Bld) 0.2 % [facility] Differential cell count method Nom (Bld) Electronic Differential [facility] Eosinophils (Bld) [#/Vol] 0.04 10*3/uL 0.00 - 0.48 K/uL [facility] Eosinophils/100 WBC (Bld) 0.4 % [facility] Erythrocyte distribution width (RBC) [Ratio] 13.9 % 10.9 - 14.3 % [facility] Hematocrit (Bld) [Volume fraction] 44.9 % 39.6 - 48.8 % [facility] Hemoglobin (Bld) [Mass/Vol] 14.4 g/dL 13.4 - 16.8 g/dL [facility] Immature granulocytes (Bld) [#/Vol] K/uL NINF - 0.07 K/uL [facility] Immature granulocytes/100 WBC (Bld) 0.3 % [facility] Interpretation and review of laboratory results Abnormal [facility] Lymphocytes (Bld) [#/Vol] 0.88 10*3/uL 0.83 - 3.57 K/uL [facility] Lymphocytes/100 WBC (Bld) 9.4 % [facility] MCH (RBC) [Entitic mass] 29.7 pg 26.1 - 33.3 pg [facility] MCHC (RBC) [Mass/Vol] 32.1 g/dL 31.9 - 36.5 g/dL [facility] MCV (RBC) [Entitic vol] 92.6 fL 79.0 - 94.5 fL [facility] Monocytes (Bld) [#/Vol] 1.08 10*3/uL High 0.24 - 0.93 K/uL [facility] Monocytes/100 WBC (Bld) 11.5 % [facility] Neutrophils (Bld) [#/Vol] 7.35 10*3/uL High 1.57 - 6.19 K/uL [facility] Nucleated RBC/100 WBC (Bld) [Ratio] 0.0 % NINF [facility] Platelet mean volume (Bld) [Entitic vol] 8.8 fL 8.7 - 12.3 fL [facility] Platelets (Bld) [#/Vol] 206 10*3/uL 146 - 337 K/uL [facility] RBC (Bld) [#/Vol] 4.85 10*6/uL [facility] Segmented neutrophils/100 WBC (Bld) 78.2 % [facility] WBC (Bld) [#/Vol] 9.40 10*3/uL 3.73 - 10. 10 K/uL [facility] CHEM 6 (LYTES, BUN CREA)on 12-10-2022 Anion gap [Moles/Vol] 11 mmol/L 7 - 17 mmol/L [facility] Chloride [Moles/Vol] 104 mmol/L 98 - 10 8 mmol/L [facility] CO2 [Moles/Vol] 26 mmol/L 21 - 31 mmol/L [facility] Creatinine [Mass/Vol] 0.97 mg/dL 0.70 - 1.30 mg/dL [facility] eGFR, CKD-EPI, Male 76 - PINF [facility] Comment on above: Reported eGFR is bas ed on the CKD-EPI 2020 equation using creatinine, age, and sex. Potassium [Moles/Vol] 4.0 mmol/L 3.5 - 5.0 mmol/L [facility] Sodium [Moles/Vol] 137 mmol/L 135 - 145 mmol/L [facility] Urea nitrogen [Mass/Vol] 23 mg/dL 7 - 25 mg/dL [facility] Urea nitrogen/Creatinine [Mass ratio] 24 mg/mg [facility] GLUCOSEon 10-09-2023 Glucose [Mass/Vol] 123 mg/dL High 70 - 99 mg/dL [facility] HEPATIC FUNCTION PANELon Albumin [Mass/Vol] 4.4 g/dL 3.5 - 5.0 g/dL [facility] ALP [Catalytic activity/Vol] 57 U/L 32 - 126 U/L [facility] ALT [Catalytic activity/Vol] 8 U/L Low 10 - 52 U/L [facility] AST [Catalytic activity/Vol] 15 U/L 10 - 39 U/L [facility] Bilirubin [Mass/Vol] 0.7 mg/dL NINF - 1.5 mg/dL [facility] Bilirubin.direct [Mass/Vol] 0.2 mg/dL NINF - 0.3 mg/dL [facility] Protein [Mass/Vol] 7.3 g/dL 6.4 - 8.3 g/dL [facility] LIPASEon 10-09-2023 Interpretation and review of laboratory results Normal [facility] Lipase [Catalytic activity/Vol] 12 U/L 11 - 82 U/L [facility] No Panel Informationon 10-09 Interpretation and review of laboratory results Abnormal [facility] Echocardiogramon 06-25-[address], [address] [place] [address] TRANSTHORACIC ECHOCARDIOGRAM REPORT Patient Name: KENNEDY KONG Letty Physician: [id number] Hannah Abraham MD Study Date: 06/25/2023 Referring ADRIEL MORGAN Physician: MRN/PID: [id number] PCP: Nestor Estrella Accession/Order#: [id number] Department [facility] Location: Date of : 1935 Fellow: Gender: M Nurse: Admit Date: Intranet Support: [address], [facility] Height: 177.80 cm CC Report to: Weight: 83.92 kg Study Type: Echocardiogram BSA: 2.02 m2 Blood Pressure: 110 /64 mmHg Diagnosis/ICD: I25.10-Atherosclerot ic heart disease of chipewwa coronary artery without angina pectoris; I51.9-Heart disease, unspecified; 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) Indication: Hyperlipidemia, [place] and PTCA-04/22/2023 Procedure/CPT: Echo Complete w Full Doppler-19010 Study Detail: The following Echo studies were [...] mmHg PIEDV: 1.64 m/s PADP: 13.8 mmHg [id number] Hannah Abraham MD Electronically signed on 06/25/2023 at 2:13:32 PM Final Normal [facility] UroVysion Fish and Urine Cyt o ([facility])on 05-17-2023 UVFISH & UC Diagnosis Info Invalid Interpretation Code [facility] Comment on above: Result Comment: A:Ur ine,Urine:Voided [...] correlated with cytology and cystoscopy results.* CPT 70638, 19081. Microscopic Notes - Microscopic Notes - Abnormal cells 9p21 deletions: 34 Abnormal cells aneploid events: 86 Total cells analyzed: 100 Hematuria: Gross Description Site ID:A color Yellow fixative Alcohol Received 70 mls of clearish yellow fluid with the patient's name and, Urine on the vial. Electronically signed by : on: 05/17/2023 11:19:51 Performed By: #### 1 [id number] ####[facility] [address] [place] [address] Consent for Procedure/Surger yon 05-16-2023 Consent for Procedure/Surgery 104.170.. [id number] #1.00CD:127 Normal [facility] Formson 05-16-2023 Forms [id number] #1.00CD:127 [facility] Consent for Procedure/Surger yon 05-14-2023 Consent for Procedure/Surgery [id number] #1.00CD:127 [facility] Consent for Treatmenton 07-2 Consent for Treatment [id number] #1.00CD:127 [facility] IntraOperative Documentson 0 05-14-2023 IntraOperative Documents [id number] #1.00CD:127 [facility] Main OR Intraoperative Recor don 05-14-2023 Main OR Intraoperative Record IntraOp Document Type FTURO Summary Primary Physician: Kylie DIETRICH MD Finalized Date/Time: 05/14/23 14:52:05 Pt. Name: LUANNKENNEDY/Sex: 1935 Male Med Rec #: [id number] Physician: Kylie DIETRICH MD Financial #: [id number] Pt. Type: O Room/Bed: / Admit/Disch: 05/14/23 [...] Chrystal Gunter Role Performed Surgeon - Primary Behavioral Health Rn - Primary Scrub - Primary Time In [...] PENNY Hebert RN, Ruthann 05/14/23 14:52 Normal [facility] Main OR Preoperative Recordo n 05-14-2023 Main OR Preoperative Record Holding Area Document Type FTURO Summary Primary Physician: Kylie DIETRICH MD Finalized Date/Time: 05/14/23 14:28:27 Pt. Name: KENNEDY KONG /Sex: 1935 Male Med Rec #: [id number] Physician: Kylie DIETRICH MD Financial #: [id number] Pt. Type: O Room/Bed: / Admit/Disch: 05/14/23 [...] Complaints of Pain: No Skin Integrity Intact, [place], Warm, & Dry Vitals - EU Blood Pressure 128/60 Pulse 73 bpm Respirations 20 br/min SPO2 96 % RN Reviewed Yes Last Modified By: PENNY Hebert RN, Ruthann 05/14/23 14:28:24 General Comments: Temp 98.1 Finalized By: PENNY Hebert RN, Ruthann Document Signatures Signed By: Marilee Vaughn LPN 05/14/23 14:03 PENNY Hebert RN, Ruthann 05/14/23 14:28 Normal [facility] Operative Reporton Operative Report Patient: KENNEDY KONG [...] resection of bladder tumors under general.. Normal [facility] Comment on above: Result Comment: Elec tronically Signed By: KARLO CHOI, Kylie Restrepo\.br\Date and Time Signed: 05/14/23 14:43 EDT Outpatient Surgery Discharge Instructionon 05-14-2023 Outpatient Surgery Discharge Instruction [id number] #1.00CD:127 Normal [facility] Progress Note-Physicianon Progress Note-Physician Patient: KENNEDY KONG [...] obstruction/lower urinary tract symptoms / SNOMED CT 1160261779 / Confirmed History of ulcerative colitis / SNOMED CT 113095506 / Confirmed Trigeminal neuralgia of right side of face / SNOMED CT 76565347 / Confirmed Hyperlipidemia / SNOMED CT 32010352 / Confirmed Chronic venous insufficiency / SNOMED CT 28586390 / Confirmed Lumbar spondylosis / SNOMED CT 504960376 / Confirmed Right hip pain / SNOMED CT 04478898 / Confirmed Chronic kidney disease / SNOMED CT 4940261938 / Confirmed Gross hematuria / SNOMED CT 522647846 / Confirmed Osteoarthritis of right hip / SNOMED CT 2244419623 / Confirmed Urinary incontinence / SNOMED CT 4571248180 / Confirmed Renal cyst / SNOMED CT 6443506151 / Confirmed Hydrocele / SNOMED CT 1293097335 / Confirmed BMI 24.0-24.9, adult / SNOMED CT 2435527322 / Confirmed Bladder tumor / SNOMED CT 790483 / Confirmed Bladder cancer / SNOMED CT 1656474226 / Confirmed Asymptomatic microscopic hematuria / SNOMED CT 1670737005 / Confirmed UTI (urinary tract infection) / SNOMED CT 143602936 / Confirmed 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 hydrocele: Resolved. Family History: Colon cancer Father () Procedure history: Endoscopic destruction of bladder tumor by laser EVOLVE ([id number]) on 12/13/2020 at 85 Years. TURBT - with left ureteroscopy and left stent placement ([id number]) on 05/26/2020 at 84 Years. Hydrocelectomy ([id number]) in 2001 at 67 Years. colon resection. colonoscopy. Cataract ([id number]). Comments: 10/17/2010 12:31 CESARIO - Martha Mazariegos [...] he then will require more BCG. Normal [facility] Comment on above: Result Comment: Elec tronically [...] treatment for. colon ca resection hydrocele Normal [facility] Fish and Urine Cyt o ([facility])on 05-10-2023 [facility] Method of Extraction Voided Normal [facility] Comment on above: Performed By: #### 1 [id number] ####[facility] [address] [place] [address] [facility] Number of Jars 1 Invalid Interpretation Code [facility] Comment on above: Performed By: #### 1 [id number] ####[facility] [address] [place] [address] [facility] Specimen Urine Normal [facility] Comment on above: Performed By: #### 1 [id number] ####[facility] [address] [place] [address] [facility] Type of Service Technical Only Normal [facility] Comment on above: Performed By: #### 1 [id number] ####[facility] [address] [place] [address] Office Visit (Cardiology)on 05-02-2023 Follow-up visit Diagnoses/Problems [...] Aminotransferase, Serum; Status:Active - Retrospective Authorization; Requested for:12Opz5112; AST; Status:Active - Retrospective Authorization; Requested for:80Epv6433; Complete Blood Count; Status:Active - Retrospective Authorization; Requested for:[id number]; Echocardiogram; Status:Hold For - Scheduling,Retrospec tive Authorization; Requested for:[id number]; Lipid Panel; Status:Active - Retrospective Authorization; Requested for:[id number]; SocHx: Never a smoker Tobacco Use Screening; Status:Complete; Done: [id number] Patient Instructions Please bring all medicines, vitamins, [...] gentleman who returns following recent non-ST elevation MN due to occluded obtuse marginal branch with primary revascularization with drug-eluting stent and is doing well. He has mild LV dysfunction, No significant coronary disease, ejection fraction of 45%. 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 Vitals Vital Signs Recorded: 22Owp4948 11:57AM Heart Rate60, L Radial Rpynzaph417, LUE, Sitting Xvonhloan20, LUE, Sitting Height5 ft 10 in Rlader707 lb BMI Eiqqwqwrpc32.54 kg/m2 BSA Calculated2.02 Tobacco Useb) No PHQ-2 [...] May 02 2023 12:49PM EST (Author) Normal [facility] Tobacco Screening.on 023 Adult depression screening assessment No [facility] [employer] [facility] [address] DO Work Phone: Fall risk assessment a) No falls within the last year [facility] [address] DO Work Phone: Tobacco use status CPHS b) No [facility] [address] DO Work Phone: Basic Metabolic Panelon 07-0 Anion gap [Moles/Vol] 10.5 mmol/L Normal 6.0-15.0 [facility] Comment on above: Performed By: #### H S TROP, LIPID, CBC, BMP #### [facility] [address] [place] [id number] [place] Calcium [Mass/Vol] 8.7 mg/dL Normal 8.6-10.3 [facility] Comment on above: Performed By: #### H S TROP, LIPID, CBC, BMP #### [facility] [address] [place] [address] [place] Chloride [Moles/Vol] 106 mmol/L Normal 98-107 [facility] Comment on above: Performed By: #### H S TROP, LIPID, CBC, BMP #### [facility] [address] [place] [address] [place] CO2 [Moles/Vol] 25.0 mmol/L Normal 21.0-31.0 [facility] Comment on above: Performed By: #### H S TROP, LIPID, CBC, BMP #### [facility] [address] [place] [address] [place] Creatinine [Mass/Vol] 0.99 mg/dL Normal 0.70-1.30 [facility] Comment on above: Performed By: #### H S TROP, LIPID, CBC, BMP #### [facility] [address] [place] [address] [place] Creatinine Clr Calc Pharmacy 55.30 [facility] Comment on above: Performed By: #### H S TROP, LIPID, CBC, BMP #### [facility] [address] [place] [address] [place] GFR/1.73 sq M.predicted MDRD (S/P/Bld) [Vol rate/Area] mL/min/{1.73_m2} [facility] Comment on above: Performed By: #### H S TROP, LIPID, CBC, BMP #### [address] Glucose [Mass/Vol] 110 mg/dL High 70-100 [facility] Comment on above: Result Comment: [facility] Glucose Reference Range is dependent on time and content of last meal. Glucose of more than 200 mg/dL in a nonstressed, ambulatory subject supports the diagnosis of Diabetes Mellitus. ADA recommended reference range Performed By: #### H S TROP, LIPID, CBC, BMP #### [facility] [address] [place] [address] [place] Potassium [Moles/Vol] 4.5 mmol/L Normal 3.5-5.1 [facility] Comment on above: Performed By: #### H S TROP, LIPID, CBC, BMP #### [facility] [address] [place] [address] [place] Sodium [Moles/Vol] 137 mmol/L Normal 136-145 [facility] Comment on above: Performed By: #### H S TROP, LIPID, CBC, BMP #### [facility] [address] [place] [address] [place] Urea nitrogen [Mass/Vol] 24 mg/dL Normal 7-25 [facility] Comment on above: Performed By: #### H S TROP, LIPID, CBC, BMP #### [facility] [address] Basophils Auto (Bld) [#/Vol] Ordered By: Ko Morgan on 04-23-2023 Basophils (Bld) [#/Vol] 0.1 10*3/uL 0.0-0.2 [facility] Basophils/100 WBC Auto (Bld) Ordered By: Ko Morgan on 04-23-2023 Basophils/100 WBC (Bld) 0.7 % . [facility] Calcium [Mass/volume] in Ser um or PlasmaOrdered By: Ko Morgan on 04-23-2023 Calcium [Mass/Vol] 8.7 mg/dL 8.6-10.3 [facility] Carbon dioxide, total [Moles /volume] in Serum or PlasmaOrdered By: Ko Morgan on 04-23-2023 CO2 [Moles/Vol] 25.0 mmol/L 21.0-31.0 [facility] Chloride [Moles/volume] in S aimee or PlasmaOrdered By: Ko Morgan on 04-23-2023 Chloride [Moles/Vol] 106 mmol/L 98-107 [facility] Cholesterol [Mass/volume] in Serum or PlasmaOrdered By: Ko Morgan on 04-23-2023 Cholesterol [Mass/Vol] 148 mg/dL 140-200 [facility] Comment on above: Chol less than 200 m g/dl low riskChol 201-239 mg/dl borderline riskChol 240 mg/dl and greater high risk Cholesterol in LDL Calc [Mas s/Vol]Ordered By: Ko Morgan on 04-23-2023 Cholesterol in LDL [Mass/Vol] 73 mg/dL 0-100 [facility] Comment on above: LDL ATP III CLASSIFI CATIONLDL less than 100 mg/dL OptimalLDL 100-129 mg/dL Near or above optimalLDL 130-159 mg/dL Borderline highLDL 160-189 mg/dL HighLDL greater than 189 mg/dL Very high Cholesterol in VLDL Calc [Ma ss/Vol]Ordered By: Ko Morgan on 04-23-2023 Cholesterol in VLDL [Mass/Vol] 19 mg/dL [facility] Complete Blood Count Auto Di ffon 04-23-2023 Basophils (Bld) [#/Vol] 0.1 10*3/uL Normal 0.0-0.2 [facility] Comment on above: Result Comment: PERF ORMED BY: [place] [address] PATHOLOGIST PIECE HAND JAMIE MADISON M.D. Performed By: #### H S TROP, LIPID, CBC, BMP #### [facility] [address] [place] [address] Basophils/100 WBC (Bld) 0.7 % Normal . [facility] Comment on above: Performed By: #### H S TROP, LIPID, CBC, BMP #### [facility] [address] [place] [address] Eosinophils (Bld) [#/Vol] 0.1 10*3/uL Normal 0.0-0.45 [facility] Comment on above: Performed By: #### H S TROP, LIPID, CBC, BMP #### [facility] [address] [place] [address] Eosinophils/100 WBC (Bld) 1.5 % Normal . [facility] Comment on above: Performed By: #### H S TROP, LIPID, CBC, BMP #### [facility] [address] [place] [address] Erythrocyte distribution width (RBC) [Ratio] 13.6 % Normal 12.0-14.8 [facility] Comment on above: Performed By: #### H S TROP, LIPID, CBC, BMP #### [facility] [address] [place] [address] Hematocrit (Bld) [Volume fraction] 40.6 % Normal 38.8-50.0 [facility] Comment on above: Performed By: #### H S TROP, LIPID, CBC, BMP #### [facility] [address] [place] [address] Hemoglobin (Bld) [Mass/Vol] 13.4 g/dL Normal 13.0-17.0 [facility] Comment on above: Performed By: #### H S TROP, LIPID, CBC, BMP #### [address] Lymphocytes (Bld) [#/Vol] 0.9 10*3/uL Low 1.00-4.8 [facility] Comment on above: Performed By: #### H S TROP, LIPID, CBC, BMP #### [address] Lymphocytes/100 WBC (Bld) 10.5 % Normal . [facility] Comment on above: Performed By: #### H S TROP, LIPID, CBC, BMP #### [address] MCH (RBC) [Entitic mass] 29.7 pg Normal 27.5-35.2 [facility] Comment on above: Performed By: #### H S TROP, LIPID, CBC, BMP #### [address] MCV (RBC) [Entitic vol] 89.8 fL Normal 83.5-101 [facility] Comment on above: Performed By: #### H S TROP, LIPID, CBC, BMP #### [address] Mean Corpuscular HGB Conc 33.1 g/dL Normal 32.5-35.6 [facility] Comment on above: Performed By: #### H S TROP, LIPID, CBC, BMP #### [address] Monocytes (Bld) [#/Vol] 1.1 10*3/uL High 0.0-0.8 [facility] Comment on above: Performed By: #### H S TROP, LIPID, CBC, BMP #### [address] Monocytes/100 WBC (Bld) 14.1 % Normal . [facility] Comment on above: Performed By: #### H S TROP, LIPID, CBC, BMP #### [address] Neutrophils (Bld) [#/Vol] 5.9 10*3/uL Normal 1.8-7.7 [facility] Comment on above: Performed By: #### H S TROP, LIPID, CBC, BMP #### [facility] [address] Neutrophils/100 WBC (Bld) 73.2 % Normal . [facility] Comment on above: Performed By: #### H S TROP, LIPID, CBC, BMP #### [address] NRBC% 0.1 /100{WBC} Normal 0-0.5 [facility] Comment on above: Performed By: #### H S TROP, LIPID, CBC, BMP #### [address] Platelet mean volume (Bld) [Entitic vol] 6.8 fL Normal 6.6-10.1 [facility] Comment on above: Performed By: #### H S TROP, LIPID, CBC, BMP #### [address] Platelets (Bld) [#/Vol] 215 10*3/uL Normal 150-450 [facility] Comment on above: Performed By: #### H S TROP, LIPID, CBC, BMP #### [address] RBC (Bld) [#/Vol] 4.52 10*6/uL Normal 3.90-5.60 [facility] Comment on above: Performed By: #### H S TROP, LIPID, CBC, BMP #### [place] [address] [place] WBC (Bld) [#/Vol] 8.1 10*3/uL Normal 4.1-10.5 [facility] Comment on above: Performed By: #### H S TROP, LIPID, CBC, BMP #### [address] Creatinine [Mass/volume] in Serum or PlasmaOrdered By: Ko Morgan on 04-23-2023 Creatinine [Mass/Vol] 0.99 mg/dL 0.70-1.30 [facility] ECG 12 lead ECGon 04-23-2023 ECG 12 lead ECG [facility] [place] [address] [place], [place] [id number] Electrocardiograph Report Signed Patient: Kennedy Kong MR#: [id number] 1435 : 1935 Acct:[id number] Age/Sex: 87 / M ADM Date: 04/22/23 Loc: Room: [address] [place] [address] Type: ADM IN Attending Dr: Kiki Motta [...] consider inferior injury or acute infarct ACUTE MN / STEMI Abnormal ECG No previous ECGs available Confirmed by RANDAL SRIVASTAVA DO ([id number]) on 04/23/2023 9:23:52 AM Referred By: Electronically Signed By:RANDAL SRIVASTAVA DO Transcribed By: MUS Signed By Randal Srivastava DO 04/23 Normal [facility] Eosinophils Auto (Bld) [#/Vo l]Ordered By: Ko Morgan on 04-23-2023 Eosinophils (Bld) [#/Vol] 0.1 10*3/uL 0.0-0.45 [facility] Eosinophils/100 WBC Auto (Bl d)Ordered By: Ko Morgan on 04-23-2023 Eosinophils/100 WBC (Bld) 1.5 % . [facility] Erythrocyte distribution wid th Auto (RBC) [Ratio]Ordered By: Ko Morgan on 04-23-2023 Erythrocyte distribution width (RBC) [Ratio] 13.6 % 12.0-14.8 [facility] Glucose [Mass/volume] in Ser um or PlasmaOrdered By: Ko Morgan on 04-23-2023 Glucose [Mass/Vol] 110 mg/dL 70-100 [facility] Comment on above: ADA recommended refe rence rangeRandom Glucose Reference Range is dependent on time and content of last meal. Glucose of more than 200 mg/dL in a nonstressed, ambulatory subject supports the diagnosis of Diabetes Mellitus. Hematocrit Auto (Bld) [Volum e fraction]Ordered By: Ko Morgan on 04-23-2023 Hematocrit (Bld) [Volume fraction] 40.6 % 38.8-50.0 [facility] Hemoglobin [Mass/volume] in BloodOrdered By: Ko Morgan on 04-23-2023 Hemoglobin (Bld) [Mass/Vol] 13.4 g/dL 13.0-17.0 [facility] Leukocytes [#/volume] correc ramona for nucleated erythrocytes in Blood by Automated counOrdered By: Ko Morgan on 04-23-2023 WBC corrected for nucl RBC Auto (Bld) [#/Vol] 8.1 10*3/uL 4.1-10.5 [facility] Lipid Panelon 04-23-2023 Cholesterol [Mass/Vol] 148 mg/dL Normal 140-200 [facility] Comment on above: Result Comment: Chol less than 200 mg/dl low risk Chol 201-239 mg/dl borderline risk Chol 240 mg/dl and greater high risk Performed By: #### H S TROP, LIPID, CBC, BMP #### [facility] [address] Cholesterol in HDL [Mass/Vol] 56 mg/dL Normal 23-92 [facility] Comment on above: Result Comment: HDL CHOL ATP-III CLASSIFICATION Cardiovascular Risk HDL > or equal to 60 mg/dL LOW HDL < 40 mg/dL HIGH Performed By: #### H S TROP, LIPID, CBC, BMP #### [facility] [address] Cholesterol.total/Chol esterol in HDL [Mass ratio] 2.6 {ratio} Normal <5.0 [facility] Comment on above: Result Comment: PERF ORMED BY: [facility] [address] [place] [address] PATHOLOGIST PIECE HAND JAMIE MADISON M.D. Performed By: #### H S TROP, LIPID, CBC, BMP #### [facility] [address] LDL Cholesterol,Calculated 73 mg/dL Normal 0-100 [facility] Comment on above: Result Comment: LDL ATP III CLASSIFICATION LDL less than 100 mg/dL Optimal LDL 100-129 mg/dL Near or above optimal LDL 130-159 mg/dL Borderline high LDL 160-189 mg/dL High LDL greater than 189 mg/dL Very high Performed By: #### H S TROP, LIPID, CBC, BMP #### [facility] [address] Triglyceride w/Reflex 97 mg/dL Normal 0-149 [facility] Comment on above: Result Comment: TRIG ATP III CLASSIFICATION TRIG less than 150 mg/dL Normal TRIG 150-199 mg/dL Borderline high TRIG 200-500 mg/dL High TRIG greater than 500 mg/dL Very high Standard traceable to the Center for Disease Conrtrol and Prevention (CDC) test method. Performed By: #### H S TROP, LIPID, CBC, BMP #### [facility] [address] VLDL CHOLESTEROL 19 mg/dL Normal [facility] Comment on above: Performed By: #### H S TROP, LIPID, CBC, BMP #### [facility] [address] Lymphocytes Auto (Bld) [#/Vo l]Ordered By: Ko Morgan on 04-23-2023 Lymphocytes (Bld) [#/Vol] 0.9 10*3/uL 1.00-4.8 [facility] Lymphocytes/100 WBC Auto (Bl d)Ordered By: Ko Morgan on 04-23-2023 Lymphocytes/100 WBC (Bld) 10.5 % . [facility] MCH Auto (RBC) [Entitic mass ]Ordered By: Ko Morgan on 04-23-2023 MCH (RBC) [Entitic mass] 29.7 pg 27.5-35.2 [facility] MCHC Auto (RBC) [Mass/Vol]Or dered By: Ko Morgan on 04-23-2023 MCHC (RBC) [Mass/Vol] 33.1 g/dL 32.5-35.6 [facility] MCV Auto (RBC) [Entitic vol] Ordered By: Ko Morgan on 04-23-2023 MCV (RBC) [Entitic vol] 89.8 fL 83.5-101 [facility] Monocytes Auto (Bld) [#/Vol] Ordered By: Ko Morgan on 04-23-2023 Monocytes (Bld) [#/Vol] 1.1 10*3/uL 0.0-0.8 [facility] Monocytes/100 WBC Auto (Bld) Ordered By: Ko Morgan on 04-23-2023 Monocytes/100 WBC (Bld) 14.1 % . [facility] Neutrophils Auto (Bld) [#/Vo l]Ordered By: Ko Morgan on 04-23-2023 Neutrophils (Bld) [#/Vol] 5.9 10*3/uL 1.8-7.7 [facility] Neutrophils/100 WBC Auto (Bl d)Ordered By: Ko Morgan on 04-23-2023 Neutrophils/100 WBC (Bld) 73.2 % . [facility] No Panel InformationOrdered By: Ko Morgan on 04-23-2023 Estimated GFR (CKD-EPI) > 60.0 mL/Min [facility] Creatinine Clearance (Chem 55.30 [facility] Nucleated erythrocytes [Pres ence] in Blood by Automated countOrdered By: Ko Morgan on 04-23-2023 Nucleated RBC Auto Ql (Bld) 0.1 /100{WBC} 0-0.5 [facility] Platelet mean volume Auto (B ld) [Entitic vol]Ordered By: Ko Morgan on 04-23-2023 Platelet mean volume (Bld) [Entitic vol] 6.8 fL 6.6-10.1 [facility] Platelets Auto (Bld) [#/Vol] Ordered By: Ko Morgan on 04-23-2023 Platelets (Bld) [#/Vol] 215 10*3/uL 150-450 [facility] Potassium [Moles/volume] in Serum or PlasmaOrdered By: Ko Morgan on 04-23-2023 Potassium [Moles/Vol] 4.5 mmol/L 3.5-5.1 [facility] RBC Auto (Bld) [#/Vol]Ordere d By: Ko Morgan on 04-23-2023 RBC (Bld) [#/Vol] 4.52 10*6/uL 3.90-5.60 [facility] Serum or plasma anion gap de terminationOrdered By: Ko Morgan on 04-23-2023 Anion gap [Moles/Vol] 10.5 mmol/L 6.0-15.0 [facility] Serum or plasma high density lipoprotein (HDL) cholesterol measurementOrdered By: Ko Morgan on 04-23-2023 Cholesterol in HDL [Mass/Vol] 56 mg/dL 23-92 [facility] Comment on above: HDL CHOL ATP-III CLA SSIFICATION Cardiovascular RiskHDL > or equal to 60 mg/dL LOWHDL < 40 mg/dL HIGH Serum or plasma total choles terol/high density lipoprotein (HDL) cholesterol mass ratOrdered By: Ko Morgan on 04-23-2023 Cholesterol.total/Chol esterol in HDL [Mass ratio] 2.6 {ratio} <5.0 [facility] Sodium [Moles/volume] in Ser um or PlasmaOrdered By: Ko Morgan on 04-23-2023 Sodium [Moles/Vol] 137 mmol/L 136-145 [facility] Triglyceride [Mass/volume] i n Serum or PlasmaOrdered By: Ko Morgan on 04-23-2023 Triglyceride [Mass/Vol] 97 mg/dL 0-149 [facility] Comment on above: TRIG ATP III CLASSIF ICATIONTRIG less than 150 mg/dL NormalTRIG 150-199 mg/dL Borderline highTRIG 200-500 mg/dL High TRIG greater than 500 mg/dL Very highStandard traceable to the Center for Disease Conrtrol and Prevention (CDC) test method. Troponin I High Sensitivityo n 04-23-2023 Troponin I High Sensitivity 81171.2 pg/mL Off scale high 0.0-20.0 [facility] Comment on above: Result Comment: Crit ical Result : Called to and read back by: STACY JACKSON at: 04/23/2023 04:24:25 by:[id number] PERFORMED BY: [place] [address] PATHOLOGIST P[employer]CE HAND JAMIE MADISON M.D. Performed By: #### H S TROP, LIPID, CBC, BMP #### [facility] [address] [place] [address] [facility] Troponin I High Sensitivity 84824.0 pg/mL Off scale high 0.0-20.0 [facility] Comment on above: Result Comment: Crit ical Result I_TnIHS_d:[id number] Called to and read back by: STACY JACKSON at: 04/23/2023 00:43:35 by:[id number] PERFORMED BY: [place] [address] PATHOLOGIST PIECE HAND JAMIE MADISON M.D. Performed By: #### H S TROP #### [facility] [address] [place] [address] Troponin I.cardiac [Mass/vol ume] in Serum or Plasma by Detection limit <= 0.01 ng/Ordered By: Ko Morgan on 04-23-2023 Troponin I.cardiac DL <= 0.01 ng/mL [Mass/Vol] 44339.2 pg/mL 0.0-20.0 [facility] Comment on above: Critical Result : Ca lled to and read back by: STACY JACKSON at: 04/23/2023 04:24:25 by:[id number] Urea nitrogen [Mass/volume] in Serum or PlasmaOrdered By: Ko Morgan on 04-23-2023 Urea nitrogen [Mass/Vol] 24 mg/dL 7-25 [facility] WBC Auto (Bld) [#/Vol]Ordere d By: Ko Morgan on 04-23-2023 WBC (Bld) [#/Vol] 8.1 10*3/uL 4.1-10.5 [facility] ECG 12 lead ECGon 04-22-2023 ECG 12 lead ECG [facility] [place] [address] [place] [address] Electrocardiograph Report Signed Patient: Kennedy Kong MR#: [id number] : 1935 Acct:[id number] Age/Sex: 87 / M ADM Date: 04/22/23 Loc: Room: [address] [place] [address] Type: ADM IN Attending Dr: Kiki Motta [...] By Randal Srivastava DO 04/23 0923 Normal [facility] Troponin I High Sensitivityo n 04-22-2023 Troponin I High Sensitivity 14989.2 pg/mL Off scale high 0.0-20.0 [facility] Comment on above: Result Comment: Crit ical Result I_TnIHS_d:84313.2 Called to and read back by: STACY JACKSON at: 04/22/2023 20:59:13 by:[id number] PERFORMED BY: [place] [address] PATHOLOGIST [employer]IECE HAND JAMIE MADISON M.D. Performed By: #### H S TROP #### [address] Troponin I High Sensitivity 34290.7 pg/mL Off scale high 0.0-20.0 [facility] Comment on above: Result Comment: Crit ical Result I_TnIHS_d:05783.7 Called to and read back by: IRIS MARQUES at: 04/22/2023 18:09:03 by:[id number] PERFORMED BY: [place] [address] PATHOLOGIST PIECE HAND JAMIE MADISON M.D. Performed By: #### H S TROP, LIPID, CBC, BMP #### [place] [id number] [facility] Trop[facility] I High Sensitivity 13883.8 pg/mL Off scale high 0.0-20.0 [facility] Comment on above: Result Comment: Crit ical Result : Called to and read back by: IRIS MARQUES at: 04/22/2023 16:04 by:[id number] PERFORMED BY: [place] [id number] PATHOLOGIST PIECE HAND JAMIE MADISON M.D. Performed By: #### H S TROP, LIPID, CBC, BMP #### [place] [id number] [facility] Consent for Procedure/Surger yon 04-09-2023 Consent for Procedure/Surgery [id number]# 1.00CD:127 Normal [facility] Ambulatory Visit Summaryon 0 04-08-2023 Ambulatory Visit Summary KENNEDY KONG :1935 Visit Date:04/08/2023 Ambulatory Visit Instructions Your Diagnosis Asymptomatic microscopic hematuria Tests Performed Urnls Dip Stick Auto w/o Microscopy POC 94829 Your Care Team Attending Physician - KARLO [...] Urnls Dip Stick Auto w/o Microscopy POC 92663 (04/08/2023) Bilirubin Urine Dipstick - Negative Blood Urine Dipstick - Negative Glucose Urine Dipstick - Negative Ketones Urine Dipstick - Negative Leukocytes Urine Dipstick - Negative Nitrite Urine Dipstick - Negative Protein Urine Dipstick - Negative Specific [place] Urine Dipstick - 1.025 Urine Appearance Urine [...] treatment for. colon ca resection hydrocele Normal [facility] Ambulatory Visit Summaryon 0 03-11-2023 Ambulatory Visit Summary KENNEDY KONG :1935 Visit Date:03/11/2023 Ambulatory Visit Instructions Your Diagnosis Bladder cancer Tests Performed Urnls Dip Stick Auto w/o Microscopy POC 48198 Your Care Team Attending Physician - Kylie [...] Urnls Dip Stick Auto w/o Microscopy POC 72256 (03/11/2023) Bilirubin Urine Dipstick - Negative Blood Urine Dipstick - 2+ Moderate Glucose Urine Dipstick - Negative Ketones Urine Dipstick - Negative Leukocytes Urine Dipstick - Negative Nitrite Urine Dipstick - Negative Protein Urine Dipstick - Negative Specific [place] Urine Dipstick - 1.025 Urine Appearance Urine [...] receiving treatment for. colon ca resection hydrocele [facility] Consent for Procedure/Surger yon 03-11-2023 Consent for Procedure/Surgery [id number] #1.00CD:127 [facility] Consent for Procedure/Surgery [id number] #1.00CD:127 [facility] Consent for Procedure/Surgery [id number] #1.00CD:127 [facility] Comment on above: Other Comment: WRONG FOLDER Lab Reportson 01-15-2023 Lab Reports [id number] #1.00CD:127 [facility] CNOVon 01-14-2023 CNOV Office Visit ([facility]) KENNEDY KONG ([id number]) 1935 M Date Time Provider Department 01/14/23 3:00 PM AVEL CAMACHO [facility] During your visit today, we recorded [...] No Drains: No Referring Provider: AVEL CAMACHO [[id number]] Allergies As of Date: 01/14/2023 Noted Allergy Reaction AMOXICILLIN 04/28/2013 14 - Other: See Comments Comments: Pt gets sores in mouth Date Reviewed: 01/14/2023 Reviewed by: Micaela Henderson MA - Fully Assessed Reason for Visit: Established Patient Follow-Up [[id number]] Cmt: Reoccuring bowel blockage Primary Visit Diagnosis:Irregular [...] Status:Closed by AVEL CAMACHO on 01/17/23 Normal [facility] Operative Reporton Operative Report [id number] 1.00CD:127 Normal [facility] Operative Reporton Operative Report [id number] #1.00CD:127 Normal [facility] CBC AUTO DIFFon 12-27-2022 BASO # 0.0 103/ul Normal 0.0-0.1 [facility] Comment on above: Performed By: #### C BC ####[facility] [address] [place] [address]Dr. Cipriano Patton Basophils/100 WBC (Bld) 0.6 % Normal 0.2-2.0 [facility] Comment on above: Performed By: #### C BC ####[facility] [address] [place], [place] [address]Dr. Cipriano Patton EO # 0.5 103/ul Normal 0.0-0.7 [facility] Comment on above: Performed By: #### C BC ####[facility] [address] [place], [place] [address]Dr. Cipriano Patton Eosinophils/100 WBC (Bld) 7.0 % Normal 0.9-7.0 [facility] Comment on above: Performed By: #### C BC ####[facility] [address] [place], [place] [address]Dr. Cipriano Patton Erythrocyte distribution width (RBC) [Ratio] 13.6 % Normal 11.0-15.0 [facility] Comment on above: Performed By: #### C BC ####[facility] [address] [place], [place] [address]Dr. Cipriano Patton Hematocrit (Bld) [Volume fraction] 41.9 % Critically low 42.0-54.0 [facility] Comment on above: Performed By: #### C BC ####[facility] [address] [place], [place] [address]Dr. Cipriano Patton Hemoglobin (Bld) [Mass/Vol] 13.7 g/dL Critically low 14.0-18.0 [facility] Comment on above: Performed By: #### C BC ####[facility] [address] [place] [address]Dr. Cipriano Patton IG # 0.01 10e3/ul Normal 0.00-0.03 [facility] Comment on above: Performed By: #### C BC ####[facility] [address] [place] [address]Dr. Cipriano Patton IG % 0.2 % Normal 0.0-0.5 [facility] Comment on above: Performed By: #### C BC ####[facility] [address] [place] [address]Dr. Cipriano Patton LYMPH # 1.3 103/ul Normal 1.2-3.8 [facility] Comment on above: Performed By: #### C BC ####[facility] [address] [place] [address]Dr. Carolejennifer Patton Lymphocytes/100 WBC (Bld) 19.5 % Critically low 20.5-60.0 [facility] Comment on above: Performed By: #### C BC ####[facility] [address] [place], [place] [address]Dr. Cipriano Abdi MANUAL DIFF REQ NO Normal [facility] Comment on above: Performed By: #### C BC ####[facility] [address] [place] [address]Dr. Cipriano Patton MCH (RBC) [Entitic mass] 29.4 pg Normal 25.9-34.0 [facility] Comment on above: Performed By: #### C BC ####[facility] [address] [place] [address]Dr. Cipriano Patton MCHC (RBC) [Mass/Vol] 32.7 g/dL Normal 29.9-35.2 [facility] Comment on above: Performed By: #### C BC ####[facility] [address] [place], [place] [address]Dr. Cipriano Patton MCV (RBC) [Entitic vol] 89.9 fL Normal 80.0-94.0 [facility] Comment on above: Performed By: #### C BC ####[facility] [address] [place] [address]Dr. Cipriano Patton MONO # 0.9 103/ul Critically high 0.3-0.8 [facility] Comment on above: Performed By: #### C BC ####[facility] [address] [place] [address]Dr. Cipriano Patton Monocytes/100 WBC (Bld) 14.7 % Critically high 1.7-12.0 [facility] Comment on above: Performed By: #### C BC ####[facility] [address] [place] [address]Dr. Cipriano Patton NEUT # 3.7 103/ul Normal 1.4-6.5 [facility] Comment on above: Performed By: #### C BC ####[facility] [address]zvwzf[address]37[address] [place] [address]Dr. Cipriano Patton Neutrophils/100 WBC (Bld) 58.0 % Normal 43.0-75.0 [facility] Comment on above: Performed By: #### C BC ####[facility] [address]uxocq[address]z3404 [place] [address]Dr. Cipriano Patton Platelet mean volume (Bld) [Entitic vol] 8.5 fL Critically low 9.5-13.5 [facility] Comment on above: Performed By: #### C BC ####[facility] Q[address]rtjxex[address] [place] [address]Dr. Cipriano Patton PLT 215 103/ul Normal 150-450 [facility] Comment on above: Performed By: #### C BC ####[facility] [address]ew[address] [place] [address]Dr. Cipriano Patton RBC 4.66 106/ul Critically low 4.70-6.10 [facility] Comment on above: Performed By: #### C BC ####[facility] F[address]vgs5869 [place] [address]Dr. Cipriano Patton WBC 6.4 103/ul Normal 4.0-11.0 [facility] Comment on above: Performed By: #### C BC ####[facility] [address] [place] [address]Dr. Cipriano Patton Complete Blood Count and Dif marci 12-27-2022 Anisocytosis Ql (Bld) [facility] INDOM Other Basophilic stippling LM Ql (Bld) [facility] INDOM Other RBC morphology finding Nom (Bld) [facility] INDOM Other Complete Blood Count and Diff [facility] INDOM Other FERRITINon 12-27-2022 Ferritin [Mass/Vol] 130.0 ng/mL Normal 26.0-388.0 [facility] Comment on above: Performed By: #### F ERR, FETIBC, B12FOL ####[facility] [address] [place], [place] [address]Dr. Cipriano Patton IRON AND TIBCon 12-27-2022 Iron [Mass/Vol] 91.4358005 ug/dL 65.0-175 .0 ug/dL [facility] INDOM Other IRON AND TIBC 257.0 ug/dL 250.0-450.0 ug/dL [facility] INDOM Other IRON AND TIBC 35.4 % [facility] INDOM Other IRON AND TIBC see note [facility] INDOM Other % SATURATION 35.4 % Normal [facility] Comment on above: Performed By: #### F ERR, FETIBC, B12FOL ####[facility] [address] [place] [address]Dr. Cipriano Patton Iron [Mass/Vol] 91.0 ug/dL Normal 65.0-175.0 [facility] Comment on above: Performed By: #### F ERR, FETIBC, B12FOL ####[facility] [address] [place] [address]Dr. Cipriano Patton TIBC DIRECT 257.0 ug/dL Normal 250.0-450.0 [facility] Comment on above: Performed By: #### F ERR, FETIBC, B12FOL ####[facility] [address] [place], [place] [address]Sx. Cipriano Patton VIT B12 AND FOLATEon 023 Cobalamin (Vitamin B12) [Mass/Vol] 554.3795329 pg/mL 193.0-986.0 pg/mL [employer] [facility] INDOM Other VIT B12 AND FOLATE 27.50 ng/mL 8.60-58.9 0 ng/mL [facility] Other Cobalamin (Vitamin B12) [Mass/Vol] 628.0 pg/mL Normal 193.0-986.0 [facility] Comment on above: Performed By: #### F ERR, FETIBC, B12FOL ####[facility] [address] [place], [place] [address]DrWesley Patton FOLATE 27.50 ng/mL Normal 8.60-58.90 [facility] Comment on above: Performed By: #### Luis M ERR, FETIBC, B12FOL ####[facility] [address] [place], [place] [address]Dr. Cipriano Patton CBC,PLATELETSon 11-05-2022 Hematocrit (Bld) [Volume fraction] 40.7 % Normal 39.6-48.8 [facility] Comment on above: Performed By: #### ARCHIE GREENE, CHM7 #### [facility] (DEFAULT) [address] [address] Hemoglobin (Bld) [Mass/Vol] 13.5 g/dL Normal 13.4-16.8 [facility] Comment on above: Performed By: #### ARCHIE GREENE, CHM7 #### [facility] (DEFAULT) [address] [place] [address] MCV (RBC) [Entitic vol] 89.1 fL Normal 79.0-94.5 [facility] Comment on above: Performed By: #### ARCHIE GREENE, CHM7 #### U [facility] (DEFAULT) [address] [place] [address] Mean Cell Hgb 29.5 pg Normal 26.1-33.3 [facility] Comment on above: Performed By: #### M GO, HFP, CHM7 #### U [facility] (DEFAULT) [address] [place] [address] Mean Cell Hgb Conc 33.2 g/dL Normal 31.9-36.5 [facility] Comment on above: Performed By: #### M GO, HFP, CHM7 #### [facility] (DEFAULT) [address] [place] [address] Platelet mean volume (Bld) [Entitic vol] 9.1 fL Normal 8.7-12.3 [facility] Comment on above: Performed By: #### M GO, HFP, CHM7 #### [facility] (DEFAULT) [address] [place] [address] Platelets (Bld) [#/Vol] 209 10*3/uL Normal 146-337 [facility] Comment on above: Performed By: #### M GO, HFP, CHM7 #### [facility] (DEFAULT) [address] [place] [address] RBC (Bld) [#/Vol] 4.57 10*6/uL Normal 4.38-5.83 [facility] Comment on above: Performed By: #### M GO, HFP, CHM7 #### [facility] (DEFAULT) [address] [place] [address] RBC Distribution 12.9 % Normal 10.9-14.3 [facility] Comment on above: Performed By: #### M GO, HFP, CHM7 #### [facility] (DEFAULT) [address] [place] [address]27 WBC (Bld) [#/Vol] 6.15 10*3/uL Normal 3.73-10.10 [facility] Comment on above: Performed By: #### M GO, HFP, CHM7 #### U [facility] (DEFAULT) [address] [place] [address] CHEM 7 (LYTES,BUN,CREA,GLUC) on 11-05-2022 Anion gap [Moles/Vol] 15 mmol/L Normal 7-17 [facility] Comment on above: Performed By: #### ARCHIE GREENE, CHM7 #### [facility] (DEFAULT) [address] [place] [address]676 Chloride [Moles/Vol] 105 mmol/L Normal 98-108 [facility] Comment on above: Performed By: #### ARCHIE GREENE, CHM7 #### [facility] (DEFAULT) [address] [place] [address] 18208 CO2 [Moles/Vol] 22 mmol/L Normal 21-31 [facility] Comment on above: Performed By: #### ARCHIE GREENE, CHM7 #### [facility] (DEFAULT) [address] [place] [address] 19756 Creatinine [Mass/Vol] 1.05 mg/dL Normal 0.70-1.30 [facility] Comment on above: Performed By: #### ARCHIE GREENE, CHM7 #### U [facility] (DEFAULT) [address] [place] [address] GFR/1.73 sq M.predicted among non-blacks MDRD (S/P/Bld) [Vol rate/Area] 69 mL/min/{1.73_m2} Normal >=60 [facility] Comment on above: Result Comment: Repo rted eGFR is based on the CKD-EPI 2020 equation using creatinine, age, and sex. Performed By: #### ARCHIE GREENE, CHM7 #### [facility] (DEFAULT) [address] [place] [address]150 Glucose [Mass/Vol] 68 mg/dL Low 70-99 [facility] Comment on above: Performed By: #### ARCHIE GREENE, CHM7 #### [facility] (DEFAULT) [address] [place] [address] Osmolality [Osmolality] 289 mosm/kg Normal 278-305 [facility] Comment on above: Performed By: #### M GO, HFP, CHM7 #### [facility] (DEFAULT) [address] [place] [address] Potassium [Moles/Vol] 4.2 mmol/L Normal 3.5-5.0 [facility] Comment on above: Performed By: #### M GO, HFP, CHM7 #### [facility] (DEFAULT) [address] [place] [address]35 Sodium [Moles/Vol] 138 mmol/L Normal 135-145 [facility] Comment on above: Performed By: #### M GO, HFP, CHM7 #### [facility] (DEFAULT) [address] [place] [address] 14100 Urea nitrogen [Mass/Vol] 17 mg/dL Normal 7-25 [facility] Comment on above: Performed By: #### M GO, HFP, CHM7 #### [facility] (DEFAULT) [address] [place] [address] 31099 Urea nitrogen/Creatinine [Mass ratio] 16 mg/mg Normal [facility] Comment on above: Performed By: #### M GO, HFP, CHM7 #### [facility] (DEFAULT) [address] [place] [address] 90370 HEPATIC FUNCTION PANELon Albumin [Mass/Vol] 3.4 g/dL Low 3.5-5.0 [facility] Comment on above: Performed By: #### M GO, HFP, CHM7 #### [facility] (DEFAULT) [address] [place] [address] 20919 ALP [Catalytic activity/Vol] 47 U/L Normal 32-126 [facility] Comment on above: Performed By: #### M GO, HFP, CHM7 #### [facility] (DEFAULT) [address] [place] [address] 42217 ALT [Catalytic activity/Vol] 6 U/L Low 10-52 [facility] Comment on above: Performed By: #### M ARCHIE [place], CHM7 #### U [facility] (DEFAULT) [address] [place] [address] 74918 AST [Catalytic activity/Vol] 14 U/L Normal 10-39 [facility] Comment on above: Performed By: #### Dinora [place] HFP, CHM7 #### U [facility] (DEFAULT) [address] [place] [address]603 Bilirubin [Mass/Vol] 0.7 mg/dL Normal <1.5 [facility] Comment on above: Performed By: #### ARCHIE GREENE, CHM7 #### U [facility] (DEFAULT) [address] [place] [address]47 Bilirubin.indirect [Mass/Vol] 0.1 mg/dL Normal <0.3 [facility] Comment on above: Performed By: #### ARCHIE GREENE, CHM7 #### [facility] (DEFAULT) [address] [place] [address] 02682 Protein [Mass/Vol] 5.9 g/dL Low 6.4-8.3 [facility] Comment on above: Performed By: #### ARCHIE GREENE, CHM7 #### [facility] (DEFAULT) [address] [place] [address] MAGNESIUMon 11-05-2022 Magnesium [Mass/Vol] 1.9 mg/dL Normal 1.6-2.6 [facility] Comment on above: Performed By: #### M ARCHIE [place], CHM7 #### U [facility] (DEFAULT) [address] [place] [address] PT,INR,PTTon 11-05-2022 aPTT Coag (Bld) [Time] 33.6 s Normal 24.0-34.3 [facility] Comment on above: Performed By: #### Dinora [place] HFP, CHM7 #### [facility] (DEFAULT) [address] [place] [address] 16014 INR Coag (PPP) [Relative time] 1.2 {INR} High 0.9-1.1 [facility] Comment on above: Performed By: #### M ARCHIE [place], RENY7 #### [facility] (DEFAULT) [address] [address] PT Coag (PPP) [Time] 14.8 s High 11.9-14.2 [facility] Comment on above: Performed By: #### ARCHIE GREENE CHM7 #### [facility] (DEFAULT) [address] [address] CBC,PLATELETSon 11-04-2022 Hematocrit (Bld) [Volume fraction] 37.3 % Low 39.6-48.8 [facility] Comment on above: Performed By: #### H EMOGC #### U [facility] (DEFAULT) [address] [address] Hemoglobin (Bld) [Mass/Vol] 12.5 g/dL Low 13.4-16.8 [facility] Comment on above: Performed By: #### H EMOGC #### U [facility] (DEFAULT) [address] [address] MCV (RBC) [Entitic vol] 88.4 fL Normal 79.0-94.5 [facility] Comment on above: Performed By: #### H EMOGC #### [facility] (DEFAULT) [address] [place] [address] 27206 Mean Cell Hgb 29.6 pg Normal 26.1-33.3 [facility] Comment on above: Performed By: #### H EMOGC #### [facility] (DEFAULT) [address] [address] Mean Cell Hgb Conc 33.5 g/dL Normal 31.9-36.5 [facility] Comment on above: Performed By: #### H EMOGC #### [facility] (DEFAULT) [address] [place] [address] 50692 Platelet mean volume (Bld) [Entitic vol] 9.0 fL Normal 8.7-12.3 [facility] Comment on above: Performed By: #### H EMOGC #### U [facility] (DEFAULT) [address] [place] [address]409 Platelets (Bld) [#/Vol] 198 10*3/uL Normal 146-337 [facility] Comment on above: Performed By: #### H EMOGC #### [facility] (DEFAULT) [address] [place] [address] 47039 RBC (Bld) [#/Vol] 4.22 10*6/uL Low 4.38-5.83 [facility] Comment on above: Performed By: #### H EMOGC #### [facility] (DEFAULT) [address] [place] [address] 58035 RBC Distribution 12.9 % Normal 10.9-14.3 [facility] Comment on above: Performed By: #### H EMOGC #### [facility] (DEFAULT) [address] [place] [address]36 WBC (Bld) [#/Vol] 5.77 10*3/uL Normal 3.73-10.10 [facility] Comment on above: Performed By: #### H EMOGC #### [facility] (DEFAULT) [address] [place] [address] 14982 CHEM 7 (LYTES,BUN,CREA,GLUC) on 11-04-2022 Anion gap [Moles/Vol] 10 mmol/L Normal 7-17 [facility] Comment on above: Performed By: #### M GO, HFP, CHM7 #### [facility] (DEFAULT) [address] [place] [address] 95734 Chloride [Moles/Vol] 108 mmol/L Normal 98-108 [facility] Comment on above: Performed By: #### M GO, HFP, CHM7 #### [facility] (DEFAULT) [address] [place] [address] 57256 CO2 [Moles/Vol] 22 mmol/L Normal 21-31 [facility] Comment on above: Performed By: #### ARCHIE GREENE CHM7 #### [facility] (DEFAULT) [address] [place] [address] 58054 Creatinine [Mass/Vol] 0.91 mg/dL Normal 0.70-1.30 [facility] Comment on above: Performed By: #### ARCHIE GREENE CHM7 #### [facility] (DEFAULT) [address] [place] [address] 38817 GFR/1.73 sq M.predicted among non-blacks MDRD (S/P/Bld) [Vol rate/Area] 82 mL/min/{1.73_m2} Normal >=60 [facility] Comment on above: Result Comment: Repo rted eGFR is based on the CKD-EPI 2020 equation using creatinine, age, and sex. Performed By: #### ARCHIE GREENE CHM7 #### [facility] (DEFAULT) [address] [place] [address] 74978 Glucose [Mass/Vol] 81 mg/dL Normal 70-99 [facility] Comment on above: Performed By: #### ARCHIE GREENE CHM7 #### [facility] (DEFAULT) [address] [place] [address] 40883 Osmolality [Osmolality] 285 mosm/kg Normal 278-305 [facility] Comment on above: Performed By: #### ARCHIE GREENE CHM7 #### [facility] (DEFAULT) [address] [place] [address] 51511 Potassium [Moles/Vol] 4.0 mmol/L Normal 3.5-5.0 [facility] Comment on above: Performed By: #### ARCHIE GREENE, CHM7 #### [facility] (DEFAULT) [address] [place] [address] 38313 Sodium [Moles/Vol] 136 mmol/L Normal 135-145 [facility] Comment on above: Performed By: #### ARCHIE GREENE, CHM7 #### [facility] (DEFAULT) [address] [place] [address] Urea nitrogen [Mass/Vol] 15 mg/dL Normal 7-25 [facility] Comment on above: Performed By: #### M GO, HFP, CHM7 #### [facility] (DEFAULT) [address] [place] [address] Urea nitrogen/Creatinine [Mass ratio] 16 mg/mg Normal [facility] Comment on above: Performed By: #### M GO, HFP, CHM7 #### [facility] (DEFAULT) [address] [place] [address] CT ABDOMEN/ABDOMEN-PELVIS (I NTERPRETATION - OUTSIDE IMAGE)on [...] disease in the abdomen or pelvis. Normal [facility] CT Abdomen and Pelvison 10-21 IMPRESSION: 1. [...] metastatic disease in the abdomen or pelvis. [facility] Radiology Study observation (narrative) [facility] CT Abdomen and PelvisOrdered By: Samantha Saldaña on 11-04-2022 [facility] Work Phone: HEPATIC FUNCTION PANELon Albumin [Mass/Vol] 3.2 g/dL Low 3.5-5.0 [facility] Comment on above: Performed By: #### M GO, HFP, CHM7 #### [facility] (DEFAULT) [address] [place] [address] ALP [Catalytic activity/Vol] 41 U/L Normal 32-126 [facility] Comment on above: Performed By: #### ARCHIE GREENE, CHM7 #### [facility] (DEFAULT) [address] [place] [address]201 ALT [Catalytic activity/Vol] 7 U/L Low 10-52 [facility] Comment on above: Performed By: #### M ARCHIE [place]ING[place], CHM7 #### [facility] (DEFAULT) [address] [place] [address] 9[address]11 AST [Catalytic activity/Vol] 13 U/L Normal 10-39 [facility] Comment on above: Performed By: #### ARCHIE GREENE, CHM7 #### [facility] (DEFAULT) [address] [place] [address]126 Bilirubin [Mass/Vol] 0.6 mg/dL Normal <1.5 [facility] Comment on above: Performed By: #### ARCHIE GREENE, CHM7 #### [facility] (DEFAULT) [address] [place] [address]16 Bilirubin.indirect [Mass/Vol] 0.1 mg/dL Normal <0.3 [facility] Comment on above: Performed By: #### ARCHIE GREENE, CHM7 #### [facility] (DEFAULT) [address] [place] [address] 71025 Protein [Mass/Vol] 5.6 g/dL Low 6.4-8.3 [facility] Comment on above: Result Comment: Resu lts inconsistent with previous results Performed By: #### ARCHIE GREENE, CHM7 #### [facility] (DEFAULT) [address] [place] [address] MAGNESIUMon 11-04-2022 Magnesium [Mass/Vol] 1.8 mg/dL Normal 1.6-2.6 [facility] Comment on above: Performed By: #### M ARCHIE [place]IRMING[place], CHM7 #### [facility] (DEFAULT) [address] [place] [address] 33579 PT,INR,PTTon 11-04-2022 aPTT Coag (Bld) [Time] 31.9 s Normal 24.0-34.3 [facility] Comment on above: Performed By: #### P TPTT #### [facility] (DEFAULT) [address] [place] [address] INR Coag (PPP) [Relative time] 1.1 {INR} Normal 0.9-1.1 [facility] Comment on above: Performed By: #### P TPTT #### [facility] (DEFAULT) [address] [place] [address]239 PT Coag (PPP) [Time] 14.3 s High 11.9-14.2 [facility] Comment on above: Performed By: #### P TPTT #### [facility] (DEFAULT) [address] [place] [address]776 CALCIUMon 11-03-2022 Calcium [Mass/Vol] 9.4 mg/dL Normal 8.6-10.5 [facility] Comment on above: Performed By: #### M ARCHIE [place]IRM[place], CHM7 #### [facility] (DEFAULT) [address] [place] [address] 32678 CBC AND ELECTRONIC DIFFon Abs Baso Auto < Normal 0.00-0.09 [facility] Comment on above: Performed By: #### L [id number] #### [facility] (DEFAULT) [address] [place] [address] 56371 Basophils/100 WBC (Bld) 0.2 % Normal [facility] Comment on above: Performed By: #### L [id number] #### [facility] (DEFAULT) [address] [place] [address] 94184 DIFF STATUS Electronic Differential Normal [facility] Comment on above: Performed By: #### L [id number] #### [facility] (DEFAULT) [address] [address] Eosinophils (Bld) [#/Vol] 0.25 10*3/uL Normal 0.00-0.48 [facility] Comment on above: Performed By: #### L [id number] #### [facility] (DEFAULT) [address] [address] Eosinophils/100 WBC (Bld) 3.0 % Normal [facility] Comment on above: Performed By: #### L [id number] #### [facility] (DEFAULT) [address] [address] Hematocrit (Bld) [Volume fraction] 43.6 % Normal 39.6-48.8 [facility] Comment on above: Performed By: #### L [id number] #### [facility] (DEFAULT) [address] [address] Hemoglobin (Bld) [Mass/Vol] 14.5 g/dL Normal 13.4-16.8 [facility] Comment on above: Performed By: #### L [id number] #### [facility] (DEFAULT) [address] [address] Immature Grans % 0.2 % Normal [facility] Comment on above: Performed By: #### L [id number] #### [facility] (DEFAULT) [address] [address] Immature Grans Absolute < Normal <=0.07 [facility] Comment on above: Performed By: #### L [id number] #### [facility] (DEFAULT) [address] [address] Lymphocytes (Bld) [#/Vol] 1.05 10*3/uL Normal 0.83-3.57 [facility] Comment on above: Performed By: #### L [id number] #### [facility] (DEFAULT) [address] [address] Lymphocytes/100 WBC (Bld) 12.5 % Normal [facility] Comment on above: Performed By: #### L [id number] #### [facility] (DEFAULT) [address] [address] MCV (RBC) [Entitic vol] 89.0 fL Normal 79.0-94.5 [facility] Comment on above: Performed By: #### L [id number] #### [facility] (DEFAULT) [address] [address] Mean Cell Hgb 29.6 pg Normal 26.1-33.3 [facility] Comment on above: Performed By: #### L [id number] #### [facility] (DEFAULT) [address] [address] Mean Cell Hgb Conc 33.3 g/dL Normal 31.9-36.5 [facility] Comment on above: Performed By: #### L [id number] #### [facility] (DEFAULT) [address] [address] Monocytes (Bld) [#/Vol] 1.15 10*3/uL High 0.24-0.93 [facility] Comment on above: Performed By: #### L [id number] #### [facility] (DEFAULT) [address] [address] Monocytes/100 WBC (Bld) 13.7 % Normal [facility] Comment on above: Performed By: #### L [id number] #### [facility] (DEFAULT) [address] [address] Nucleated RBC 0.0 /100 WBC Normal <=0.2 [facility] Comment on above: Performed By: #### L [id number] #### [facility] (DEFAULT) [address] [address] Platelet mean volume (Bld) [Entitic vol] 8.8 fL Normal 8.7-12.3 [facility] Comment on above: Performed By: #### L [id number] #### [facility] (DEFAULT) [address] [place] [address] Platelets (Bld) [#/Vol] 223 10*3/uL Normal 146-337 [facility] Comment on above: Performed By: #### L [id number] #### [facility] (DEFAULT) [address] [place] [address]17 RBC (Bld) [#/Vol] 4.90 10*6/uL Normal 4.38-5.83 [facility] Comment on above: Performed By: #### L [id number] #### [facility] (DEFAULT) [address] [place] [address] 24161 RBC Distribution 12.9 % Normal 10.9-14.3 [facility] Comment on above: Performed By: #### L AB980 #### [facility] (DEFAULT) [address] [place] [address] 76146 Segs + Bands Auto 70.4 % Normal [facility] Comment on above: Performed By: #### L [id number] #### [facility] (DEFAULT) [address] [place] [address]38 Segs + Bands,Absolute Auto 5.91 K/uL Normal 1.57-6.19 [facility] Comment on above: Performed By: #### L [id number] #### [facility] (DEFAULT) [address] [place] [address] WBC (Bld) [#/Vol] 8.40 10*3/uL Normal 3.73-10.10 [facility] Comment on above: Performed By: #### L [id number] #### [facility] (DEFAULT) [address] [address] CBC AUTO DIFFon 11-03-2022 BASO # 0.0 103/ul Normal 0.0-0.1 [facility] Comment on above: Performed By: #### C BC #### [facility] [address] [place], [place] [address] Dr. Cipriano Patton Basophils/100 WBC (Bld) 0.3 % Normal 0.2-2.0 [facility] Comment on above: Performed By: #### C BC #### [facility] [address] [place] [address] Dr. Cipriano Patton EO # 0.3 103/ul Normal 0.0-0.7 [facility] Comment on above: Performed By: #### C BC #### [facility] [address] [place] [address] Dr. Cipriano Patton Eosinophils/100 WBC (Bld) 4.0 % Normal 0.9-7.0 [facility] Comment on above: Performed By: #### C BC #### [facility] [address] [place] [address] Dr. Cipriano Patton Erythrocyte distribution width (RBC) [Ratio] 13.1 % Normal 11.0-15.0 [facility] Comment on above: Performed By: #### C BC #### [facility] [address] [place] [address] Dr. Cipriano Patton Hematocrit (Bld) [Volume fraction] 41.6 % Critically low 42.0-54.0 [facility] Comment on above: Performed By: #### C BC #### [facility] [address] [place] [address] Dr. Cipriano Patton Hemoglobin (Bld) [Mass/Vol] 14.1 g/dL Normal 14.0-18.0 [facility] Comment on above: Performed By: #### C BC #### [facility] [address] [place] [address] Dr. Cipriano Patton IG # 0.02 10e3/ul Normal 0.00-0.03 [facility] Comment on above: Performed By: #### C BC #### [facility] [address] [place] [address] Dr. Cipriano Patton IG % 0.3 % Normal 0.0-0.5 [facility] Comment on above: Performed By: #### C BC #### [facility] [address] [place] [address] Dr. Cipriano Patton LYMPH # 1.0 103/ul Critically low 1.2-3.8 [facility] Comment on above: Performed By: #### C BC #### [facility] [address] [place] [address] [address] Cipriano Patton Lymphocytes/100 WBC (Bld) 13.0 % Critically low 20.5-60.0 [facility] Comment on above: Performed By: #### C BC #### [facility] [address] [place] [address] Dr. Cipriano Patton MANUAL DIFF REQ NO Normal [facility] Comment on above: Performed By: #### C BC #### [facility] [address] [place] [address] Dr. Cipriano Patton MCH (RBC) [Entitic mass] 29.6 pg Normal 25.9-34.0 [facility] Comment on above: Performed By: #### C BC #### [facility] [address] [place] [address] Dr. Cipriano Patton MCHC (RBC) [Mass/Vol] 33.9 g/dL Normal 29.9-35.2 [facility] Comment on above: Performed By: #### C BC #### [facility] [address] [place] [address] Dr. Cipriano Patton MCV (RBC) [Entitic vol] 87.2 fL Normal 80.0-94.0 [facility] Comment on above: Performed By: #### C BC #### [facility] [address] [place] [address] Dr. Cipriano Patton MONO # 0.9 103/ul Critically high 0.3-0.8 [facility] Comment on above: Performed By: #### C BC #### [facility] [address] [place] [address] Dr. Cipriano Patton Monocytes/100 WBC (Bld) 12.9 % Critically high 1.7-12.0 [facility] Comment on above: Performed By: #### C BC #### [facility] [address] [place] [address] Dr. Cipriano Patton NEUT # 5.1 103/ul Normal 1.4-6.5 [facility] Comment on above: Performed By: #### C BC #### [facility] [address] [place] [address] [address] Cipriano Patton Neutrophils/100 WBC (Bld) 69.5 % Normal 43.0-75.0 [facility] Comment on above: Performed By: #### C BC #### [facility] [address] [place] [address] [address] Cipriano Patton Platelet mean volume (Bld) [Entitic vol] 8.7 fL Critically low 9.5-13.5 [facility] Comment on above: Performed By: #### C BC #### [facility] [address] [address] [address] Cipriano Patton PLT 216 103/ul Normal 150-450 [facility] Comment on above: Performed By: #### C BC #### [facility] [address] [place] [address] Dr. Cipriano Patton RBC 4.77 106/ul Normal 4.70-6.10 [facility] Comment on above: Performed By: #### C BC #### [facility] [address] [address] [address] Cipriano Patton WBC 7.3 103/ul Normal 4.0-11.0 [facility] Comment on above: Performed By: #### C BC #### [facility] [address] [address] [address] Cipriano Patton CHM 7 - EDon 11-03-2022 Anion gap [Moles/Vol] 11 mmol/L Normal 7-17 [facility] Comment on above: Performed By: #### M ARCHIE [place]MING[place]AM, CHM7 #### [facility] (DEFAULT) [address] [address] Chloride [Moles/Vol] 105 mmol/L Normal 98-108 [facility] Comment on above: Performed By: #### M ARCHIE [place], CHM7 #### [facility] (DEFAULT) [address] [address] CO2 [Moles/Vol] 27 mmol/L Normal 21-31 [facility] Comment on above: Performed By: #### ARCHIE GREENE CHM7 #### [facility] (DEFAULT) [address] [place] [address] Creatinine [Mass/Vol] 1.02 mg/dL Normal 0.70-1.30 [facility] Comment on above: Performed By: #### ARCHIE GREENE CHM7 #### [facility] (DEFAULT) [address] [place] [address] GFR/1.73 sq M.predicted among non-blacks MDRD (S/P/Bld) [Vol rate/Area] 72 mL/min/{1.73_m2} Normal >=60 [facility] Comment on above: Result Comment: Repo rted eGFR is based on the CKD-EPI 2020 equation using creatinine, age, and sex. Performed By: #### ARCHIE GREENE CHM7 #### [facility] (DEFAULT) [address] [place] [address] Glucose [Mass/Vol] 97 mg/dL Normal 70-99 [facility] Comment on above: Performed By: #### ARCHIE GREENE CHM7 #### [facility] (DEFAULT) [address] [place] [address] Osmolality [Osmolality] 291 mosm/kg Normal 278-305 [facility] Comment on above: Performed By: #### ARCHIE GREENE CHM7 #### [facility] (DEFAULT) [address] [place] [address] Potassium [Moles/Vol] 4.6 mmol/L Normal 3.5-5.0 [facility] Comment on above: Performed By: #### ARCHIE GREENE CHM7 #### [facility] (DEFAULT) [address] [place] [address] Sodium [Moles/Vol] 138 mmol/L Normal 135-145 [facility] Comment on above: Performed By: #### ARCHIE GREENE CHM7 #### [facility] (DEFAULT) [address] [place] [address] Urea nitrogen [Mass/Vol] 16 mg/dL Normal 7-25 [facility] Comment on above: Performed By: #### M VALENCIA, [facility], CHM7 #### [facility] (DEFAULT) [address] [place] [address] Urea nitrogen/Creatinine [Mass ratio] 16 mg/mg Normal [facility] Comment on above: Performed By: #### M VALENCIA, [facility], CHM7 #### [facility] (DEFAULT) [address] [place] [address] CT ABD/PELV W CONon 11-03-19 CT ABD/PELV [...] ANKIT DANIEL Date: 2022-11-03 11:55 Normal [facility] HEPATIC FUNCTION PANELon Albumin [Mass/Vol] 3.9 g/dL Normal 3.5-5.0 [facility] Comment on above: Performed By: #### M VALENCIA, HFP, CHM7 #### [facility] (DEFAULT) [address] [place] [address] ALP [Catalytic activity/Vol] 49 U/L Normal 32-126 [facility] Comment on above: Performed By: #### M VALENCIA, HFP, CHM7 #### [facility] (DEFAULT) [address] [place] [address]659 ALT [Catalytic activity/Vol] 8 U/L Low 10-52 [facility] Comment on above: Performed By: #### M GO, HFP, CHM7 #### [facility] (DEFAULT) [address] [place] [address]145 AST [Catalytic activity/Vol] 14 U/L Normal 10-39 [facility] Comment on above: Performed By: #### M GO, HFP, CHM7 #### [facility] (DEFAULT) [address] [place] [address] Bilirubin [Mass/Vol] 0.6 mg/dL Normal <1.5 [facility] Comment on above: Performed By: #### M GO, HFP, CHM7 #### [facility] (DEFAULT) [address] [place] [address] Bilirubin.indirect [Mass/Vol] 0.1 mg/dL Normal <0.3 [facility] Comment on above: Performed By: #### M GO, HFP, CHM7 #### [facility] (DEFAULT) [address] [place] [address]65 Protein [Mass/Vol] 6.8 g/dL Normal 6.4-8.3 [facility] Comment on above: Performed By: #### M GO, HFP, CHM7 #### [facility] (DEFAULT) [address] [place] [address] LACTATE, WHOLE BLOODon 11-03 Lactate, Whole Blood 1.1 mmol/L Normal 0.5-1.6 [facility] Comment on above: Performed By: #### B GLACT #### [facility] (DEFAULT) [address] [place] [address] LIPASEon 11-03-2022 Lipase [Catalytic activity/Vol] 13 U/L Normal 11-82 [facility] Comment on above: Performed By: #### M ARCHIE [place]ING[place], CHM7 #### [facility] (DEFAULT) [address] [place] [address] MAGNESIUMon 11-03-2022 Magnesium [Mass/Vol] 2.0 mg/dL Normal 1.6-2.6 [facility] Comment on above: Performed By: #### ARCHIE GREENE, CHM7 #### [facility] (DEFAULT) [address] [place] [address] PHOSPHATE, INORGANICon 11-03 Phosphorous 3.3 mg/dL Normal 2.2-4.6 [facility] Comment on above: Performed By: #### ARCHIE GREENE, CHM7 #### [facility] (DEFAULT) [address] [place] [address] PROF 14(COMP METB)on 023 Albumin [Mass/Vol] 3.4 g/dL Normal 3.4-5.0 [facility] Comment on above: Performed By: #### C MP #### [facility] [address] [place] [address] Dr. Cipriano Patton Albumin/Globulin [Mass ratio] 1.0 {ratio} Normal [facility] Comment on above: Performed By: #### C MP #### [facility] [address] [place] [address] Dr. Cipriano Patton ALP [Catalytic activity/Vol] 53 U/L Normal 46-116 [facility] Comment on above: Performed By: #### C MP #### [facility] [address] [address] [address] Cipriano Patton ALT [Catalytic activity/Vol] 13 U/L Critically low 16-63 [facility] Comment on above: Performed By: #### C MP #### [facility] [address] [place] [address] Dr. Cipriano Patton Anion gap [Moles/Vol] 9.3 mmol/L Normal [facility] Comment on above: Performed By: #### C MP #### [facility] [address] [address] [address] Cipriano Patton AST [Catalytic activity/Vol] 24 U/L Normal 15-37 [facility] Comment on above: Performed By: #### C MP #### [facility] [address] [address] [address] Cipriano Patton Bilirubin [Mass/Vol] 0.5 mg/dL Normal 0.2-1.0 [facility] Comment on above: Performed By: #### C MP #### [facility] [address] [place] [address] Dr. Cipriano Patton Calcium [Mass/Vol] 9.2 mg/dL Normal 8.5-10.1 [facility] Comment on above: Performed By: #### C MP #### [facility] [address] [address] [address] Cipriano Patton Chloride [Moles/Vol] 105 mmol/L Normal 98-107 [facility] Comment on above: Performed By: #### C MP #### [facility] [address] [address] [address] Cipriano Patton CO2 [Moles/Vol] 30.4 mmol/L Normal 21.0-32.0 [facility] Comment on above: Performed By: #### C MP #### [facility] [address] [address] [address] Cipriano Patton Creatinine [Mass/Vol] 1.02 mg/dL Normal 0.70-1.30 [facility] Comment on above: Performed By: #### C MP #### [facility] [address] [address] [address] Cipriano Patton EGFR-AF SOMALI >60 Normal >=60 [facility] Comment on above: Performed By: #### C MP #### [facility] [address] [address] [address] Cipriano Patton EGFR-NON AF SOMALI >60 Normal >=60 [facility] Comment on above: Performed By: #### C MP #### [facility] [address] [address] [address] Cipriano Patton Globulin (S) [Mass/Vol] 3.3 g/dL Normal [facility] Comment on above: Performed By: #### C MP #### [facility] [address] [address] [address] Cipriano Patton Glucose [Mass/Vol] 92 mg/dL Normal 74-106 [facility] Comment on above: Performed By: #### C MP #### [facility] [address] [place] [address] Dr. Cipriano Patton Potassium [Moles/Vol] 4.7 mmol/L Normal 3.5-5.1 [facility] Comment on above: Performed By: #### C MP #### [facility] [address] [place] [address] Dr. Cipriano Patton Protein [Mass/Vol] 6.7 g/dL Normal 6.4-8.2 [facility] Comment on above: Performed By: #### C MP #### [facility] [address] [place] [address] Dr. Cipriano Patton Sodium [Moles/Vol] 140 mmol/L Normal 136-145 [facility] Comment on above: Performed By: #### C MP #### [facility] [address] [address] [address] Cipriano Patton Urea nitrogen [Mass/Vol] 18.0 mg/dL Normal 7.0-18.0 [facility] Comment on above: Performed By: #### C MP #### [facility] [address] [place] [address] Dr. Cipriano Patton Urea nitrogen/Creatinine [Mass ratio] 17.6 mg/mg Normal [facility] Comment on above: Performed By: #### C MP #### [facility] [address] [address] [address] Cipriano Patton URINALYSISon 11-03-2022 Appearance (U) Clear Normal Clear [facility] Comment on above: Performed By: #### U RIN #### [facility] (DEFAULT) [address] [place] [address] Bacteria ABSENT Normal ABSENT [facility] Comment on above: Performed By: #### U RIN #### [facility] (DEFAULT) [address] [place] [address] Blood Urine Moderate Abnormal Negative [facility] Comment on above: Performed By: #### U RIN #### [facility] (DEFAULT) [address] [place] [address] Color (U) Yellow Normal Yellow [facility] Comment on above: Performed By: #### U RIN #### [facility] (DEFAULT) [address] [place] [address] Glucose Ql (U) Negative Normal Negative [facility] Comment on above: Performed By: #### U RIN #### [facility] (DEFAULT) [address] [place] [id number] Ketones Ql (U) Trace Abnormal Negative [facility] Comment on above: Performed By: #### U RIN #### [facility] (DEFAULT) [address] [place] [address] Leukocyte esterase Test strip Ql (U) Negative Normal Negative [facility] Comment on above: Performed By: #### U RIN #### [facility] (DEFAULT) [address] [place] [address] Nitrites Urine Negative Normal Negative [facility] Comment on above: Performed By: #### U RIN #### [facility] (DEFAULT) [address] [place] [address] pH (U) 5.5 [pH] Normal 5.0-7.0 [facility] Comment on above: Performed By: #### U RIN #### [facility] (DEFAULT) [address] [place] [address] Protein Urine Negative Normal Negative [facility] Comment on above: Performed By: #### U RIN #### [facility] (DEFAULT) [address] [address] RBC Urine 6-9 Abnormal 0-2 [facility] Comment on above: Performed By: #### U RIN #### [facility] (DEFAULT) [address] [address] Specific [place] Urine <= Normal >1.001-<1.035 [facility] Comment on above: Performed By: #### U RIN #### [facility] (DEFAULT) [address] [address] Squamous/Epithelial Cells 1/hpf = 1+ Normal 1/hpf = 1+, 2-5/hpf = 2+, 0/hpf = 0+, ABSENT [facility] Comment on above: Performed By: #### U RIN #### [facility] (DEFAULT) [address] [address] Urobilinogen Urine 0.2 E.U./dL Normal 0.2 E.U/d L, 1.0 E.U/dL [facility] Comment on above: Performed By: #### U RIN #### [facility] (DEFAULT) [address] [address] WBC Urine 0-5 Normal 0-5 [facility] Comment on above: Performed By: #### U RIN #### [facility] (DEFAULT) [address] [address] URINE CULTUREon 11-03-2022 Bacteria identified Cx Nom (U) No significant growth. Routine cultures are evaluated for significant uro-pathogens >=10,000 CFU/mL Normal [facility] Comment on above: Order Comment: For i ndwelling catheters, specimen collection is acceptable on catheter day 1 and 2 only. Jauregui top vacutainer. Urine must be to the fill line to process (4mls). If minimum volume, send urine in a yellow top vacutainer tube. Performed By: #### U R #### [facility] (COUNT INCLUDES THE [facility]) [address] [place] [address] XR ABD FLAT UP_PA Lobo 11-03 XR [...] MANAV PARK Date: 2022-11-03 09:52 Normal [facility] GLYCOHEMOGLOBIN A1Con 2021 ADA RECOMMENDATION SEE BELOW Normal [facility] Comment on above: Result Comment: ADA RECOMMENDED LIMIT 4.0 - 6.0 ADA THERAPEUTIC TARGET < 7.0 ACTION SUGGESTED > 7.0 Performed By: #### A 1C #### [facility] [address] [place], [place] [address] Dr. Cipriano Patton Glucose [Mass/Vol] 111 mg/dL Normal [facility] Comment on above: Performed By: #### A 1C #### [facility] [address] [place], [place] [address] Dr. Cipriano Patton HbA1c (Bld) [Mass fraction] 5.5 % Normal 4.5-6.2 [facility] Comment on above: Performed By: #### A 1C #### [facility] [address] [place] [address] [address] Cipriano Patton PROF CHEM 8 (BAS METB)on Anion gap [Moles/Vol] 9.4 mmol/L Normal [facility] Comment on above: Performed By: #### B MP ####[facility] [address] [place] [address]Dr. Cipriano Patton Calcium [Mass/Vol] 9.2 mg/dL Normal 8.5-10.1 [facility] Comment on above: Performed By: #### B MP ####[facility] [address] [place] [address]Dr. Cipriano Patton Chloride [Moles/Vol] 103 mmol/L Normal 98-107 [facility] Comment on above: Performed By: #### B MP ####[facility] [address] [place] [address]Dr. Cipriano Patton CO2 [Moles/Vol] 30.6 mmol/L Normal 21.0-32.0 [facility] Comment on above: Performed By: #### B MP ####[facility] [address] [place] [address]Dr. Cipriano Patton Creatinine [Mass/Vol] 1.06 mg/dL Normal 0.70-1.30 [facility] Comment on above: Performed By: #### B MP ####[facility] [address] [place] [address]Dr. Cipriano Patton EGFR-AF SOMALI >60 Normal >=60 [facility] Comment on above: Performed By: #### B MP ####[facility] [address] [place] [address]Dr. Cipriano Patton EGFR-NON AF SOMALI >60 Normal >=60 [facility] Comment on above: Performed By: #### B MP ####[facility] [address] [place] [address]Dr. Cipriano Patton Glucose [Mass/Vol] 96 mg/dL Normal 74-106 [facility] Comment on above: Performed By: #### B MP ####[facility] [address] [place] [address]Dr. Cipriano Patton Potassium [Moles/Vol] 5.0 mmol/L Normal 3.5-5.1 [facility] Comment on above: Performed By: #### B MP ####[facility] [address] [place] [address]Dr. Cipriano Patton Sodium [Moles/Vol] 138 mmol/L Normal 136-145 [facility] Comment on above: Performed By: #### B MP ####[facility] [address] [place] [address]Dr. Cipriano Patton Urea nitrogen [Mass/Vol] 29.0 mg/dL Critically high 7.0-18.0 [facility] Comment on above: Performed By: #### B MP ####[facility] [address] [place] [address]Dr. Cipriano Patton Urea nitrogen/Creatinine [Mass ratio] 27.4 mg/mg Normal [facility] Comment on above: Performed By: #### B MP ####[facility] [address] [place] [address]Dr. Cipriano Patton CBC AUTO DIFFon 07-02-2022 BASO # 0.0 103/ul Normal 0.0-0.1 [facility] Comment on above: Performed By: #### C BC #### [facility] [address] [place] [address] [address] Cipriano Patton Basophils/100 WBC (Bld) 0.5 % Normal 0.2-2.0 [facility] Comment on above: Performed By: #### C BC #### [facility] [address] [place] [address] [address] Cipriano Patton EO # 0.4 103/ul Normal 0.0-0.7 [facility] Comment on above: Performed By: #### C BC #### [facility] [address] [place] [address] [address] Cipriano Patton Eosinophils/100 WBC (Bld) 6.9 % Normal 0.9-7.0 [facility] Comment on above: Performed By: #### C BC #### [facility] [address] [place] [address] Dr. Cipriano Patton Erythrocyte distribution width (RBC) [Ratio] 13.5 % Normal 11.0-15.0 [facility] Comment on above: Performed By: #### C BC #### [facility] [address] [place] [address] Dr. Cipriano Patton Hematocrit (Bld) [Volume fraction] 42.5 % Normal 42.0-54.0 [facility] Comment on above: Performed By: #### C BC #### [facility] [address] [place] [address] Dr. Cipriano Patton Hemoglobin (Bld) [Mass/Vol] 13.7 g/dL Critically low 14.0-18.0 [facility] Comment on above: Performed By: #### C BC #### [facility] [address] [place] [address] Dr. Cipriano Patton IG # 0.02 10e3/ul Normal 0.00-0.03 [facility] Comment on above: Performed By: #### C BC #### [facility] [address] [place] [address] Dr. Cipriano Patton IG % 0.4 % Normal 0.0-0.5 [facility] Comment on above: Performed By: #### C BC #### [facility] [address] [place] [address] Dr. Cipriano Patton LYMPH # 1.3 103/ul Normal 1.2-3.8 [facility] Comment on above: Performed By: #### C BC #### [facility] [address] [place] [address] Dr. Cipriano Patton Lymphocytes/100 WBC (Bld) 23.7 % Normal 20.5-60.0 [facility] Comment on above: Performed By: #### C BC #### [facility] [address] [place] [address] Dr. Cipriano Patton MANUAL DIFF REQ NO Normal [facility] Comment on above: Performed By: #### C BC #### [facility] [address] [place] [address] Dr. Cipriano Patton MCH (RBC) [Entitic mass] 29.4 pg Normal 25.9-34.0 [facility] Comment on above: Performed By: #### C BC #### [facility] [address] [address] [address] Cipriano Patton MCHC (RBC) [Mass/Vol] 32.2 g/dL Normal 29.9-35.2 [facility] Comment on above: Performed By: #### C BC #### [facility] [address] [address] [address] Cipriano Patton MCV (RBC) [Entitic vol] 91.2 fL Normal 80.0-94.0 [facility] Comment on above: Performed By: #### C BC #### [facility] [address] [place] [address] Dr. Cipriano Patton MONO # 0.9 103/ul Critically high 0.3-0.8 [facility] Comment on above: Performed By: #### C BC #### [facility] [address] [place] [address] Dr. Cipriano Patton Monocytes/100 WBC (Bld) 15.8 % Critically high 1.7-12.0 [facility] Comment on above: Performed By: #### C BC #### [facility] [address] [place] [address] Dr. Cipriano Patton NEUT # 2.9 103/ul Normal 1.4-6.5 [facility] Comment on above: Performed By: #### C BC #### [facility] [address] [place] [address] Dr. Cipriano Patton Neutrophils/100 WBC (Bld) 52.7 % Normal 43.0-75.0 [facility] Comment on above: Performed By: #### C BC #### [facility] [address] [place] [address] Dr. Cipriano Patton Platelet mean volume (Bld) [Entitic vol] 9.0 fL Critically low 9.5-13.5 [facility] Comment on above: Performed By: #### C BC #### [facility] [address] [place] [address] Dr. Cipriano Patton PLT 211 103/ul Normal 150-450 [facility] Comment on above: Performed By: #### C BC #### [facility] [address] [place] [address] [address] Cipriano Patton RBC 4.66 106/ul Critically low 4.70-6.10 [facility] Comment on above: Performed By: #### C BC #### [facility] [address] [place] [address] [address] Ciprinao Patton WBC 5.5 103/ul Normal 4.0-11.0 [facility] Comment on above: Performed By: #### C BC #### [facility] [address] [place] [address] Dr. Cipriano Patton PROF CHEM 8 (BAS METB)on Anion gap [Moles/Vol] 10.7 mmol/L Normal [facility] Comment on above: Performed By: #### B MP #### [facility] [address] [place] [address] Dr. Cipriano Patton Calcium [Mass/Vol] 8.5 mg/dL Normal 8.5-10.1 [facility] Comment on above: Performed By: #### B MP #### [facility] [address] [place] [address] Dr. Cipriano Patton Chloride [Moles/Vol] 105 mmol/L Normal 98-107 [facility] Comment on above: Performed By: #### B MP #### [facility] [address] [place] [address] Dr. Cipriano Patton CO2 [Moles/Vol] 29.4 mmol/L Normal 21.0-32.0 [facility] Comment on above: Performed By: #### B MP #### [facility] [address] [place] [address] Dr. Cipriano Patton Creatinine [Mass/Vol] 0.90 mg/dL Normal 0.70-1.30 [facility] Comment on above: Performed By: #### B MP #### [facility] [address] [place] [address] Dr. Cipriano Patton EGFR-AF SOMALI >60 Normal >=60 [facility] Comment on above: Performed By: #### B MP #### [facility] [address] [place] [address] Dr. Cipriano Patton EGFR-NON AF SOMALI >60 Normal >=60 [facility] Comment on above: Performed By: #### B MP #### [facility] [address] [place] [address] Dr. Cipriano Patton Glucose [Mass/Vol] 82 mg/dL Normal 74-106 [facility] Comment on above: Performed By: #### B MP #### [facility] [address] [place] [address] Dr. Cipriano Patton Potassium [Moles/Vol] 4.1 mmol/L Normal 3.5-5.1 [facility] Comment on above: Performed By: #### B MP #### [facility] [address] [place] [address] Dr. Cipriano Patton Sodium [Moles/Vol] 141 mmol/L Normal 136-145 [facility] Comment on above: Performed By: #### B MP #### [facility] [address] [place] [address] Dr. Cipriano Patton Urea nitrogen [Mass/Vol] 16.0 mg/dL Normal 7.0-18.0 [facility] Comment on above: Performed By: #### B MP #### [facility] [address] [place] [address] Dr. Cipriano Patton Urea nitrogen/Creatinine [Mass ratio] 17.8 mg/mg Normal [facility] Comment on above: Performed By: #### B MP #### [facility] [address] [place] [address] Dr. Cipriano Patton Covid-19 PCR ([facility])on 03-21 SARS-CoV-2 (COVID-19) RNA CAIT+probe Ql (Unsp spec) Detected Critically abnormal NOT DETECTED [facility] Comment on above: Result Comment: This test is not yet approved or cleared by the [place] FDA. When there are no FDA-approved or cleared tests available, and other criteria are met, FDA can make tests available under an emergency access mechanism called an Emergency Use Authorization (EUA). The EUA for this test is supported by the [place] of Health and Human Service's (HHS's) declaration [...] longer be used). Performed By: #### C [facility] #### [facility] [address] [place] [address] Dr. Cipriano Patton VC COMP CONSULTATIONon 03-28 VC COMP CONSULTATION Patient: KENNEDY KONG Exam Date: 03/28/2022 : 1935 Gender:M Ordering : DR NESTOR ESTRELLA D.O. Admission #: [id number] Family : Order #: [id number] CLICK HERE TO VIEW EXAM RADIOLOGY REPORT [...] hours. The patient is a wolff in [facility]. The patient denies any signs and [...] MD on 03/28/2022 at 10:14 Normal [facility] VC VENOUS REFLUX ROBERTO LMTon 0 03-28-2022 VC VENOUS REFLUX ROBERTO LMT Patient: KENNEDY KONG Exam Date: 03/28/2022 : 1935 Gender:M Ordering : DR NESTOR ESTRELLA D.O. Admission #: [id number] Family : Order #: [id number] CLICK HERE TO VIEW EXAM RADIOLOGY REPORT [...] compression in area of thrombus Flow: Normal Driver License Examiner: Dist/med calf 2.2mm, 0.7s reflux; mid/med calf [...] or chronic thrombus Compressibility: Normal Flow: Normal Driver License Examiner: Mid/med 2.6mm, no reflux; dist/med 3.3mm, no reflux Tech Note: Patent varicose vein prox/med 2.3mm, without reflux. Varicose vein mid/ant 2.7mm, without reflux. Hypoechoic avascular structure lt pop fossa that measures 3.1 x 4.2 x 0.9 cm CONCLUSION: 1. Kuqn-bs-gatoxwns right great saphenous vein venous insufficiency without associated dilatation 2. Small bilateral incompetent varicose veins 3. 4.2 cm left popliteal cyst Dictated by: Aubrey Vee MD on 03/28/2022 at 09:23 Approved by: Aubrey Vee MD on 03/28/2022 at 09:26 Normal [facility] US MILADIS DOP LEG LTon 02-08-20 [...] by: AUBREY CHEUNG Date: 2022-02-07 17:34 Normal [facility] ANES Lisa 11-04-2019 ANES POST HNO ID: [id number] Author: Luigi Snyder Service: Anesthesiology Author Type: [...] 04, 2019 TIME: 3:21 PM PAGER/CONTACT #: [id number] [facility] ANES PREOPon 11-04-2019 ANES PREOP HNO ID: [id number] Author: Seymour Buenrostro Service: Anesthesiology Author Type: [...] 04, 2019 TIME: 2:13 PM PAGER/CONTACT #: [id number] [facility] HISTORY PHYSICALon 0 HISTORY PHYSICAL HNO ID: [id number] Author: Avel Camacho Service: Colorectal Author Type: [...] November 04, 2019 TIME: 1:08 PM PAGER: [facility] PT EDon 11-04-2019 PT ED HNO ID: [id number] Author: Elizabeth Menard) JUSTIN Patel Service: Nursing [...] None Electronically Signed By: Elizabeth Patel RN [facility] PT ED HNO ID: [id number] Author: Harini RomeroRn) JUSTIN Yusuf Service: ? [...] None Electronically Signed By: Harini Yusuf RN [facility] NURSING PROGon 10-08-2019 NURSING PROG HNO ID: [id number] Author: Nathaly RomeroRn) JUSTIN Kraft Service: Nursing [...] Kraft RN October 08, 2019 8:45 AM [facility] HOSPon 09-24-2019 HOSP Patient:Dustin Kong MRN: [...] entered within the past 30 days Normal [facility] ABDOMEN 1 VWon 03-31-2019 ABDOMEN 1 VW [facility] Department of Radiology [address] [place] [address] Patient Name: KENNEDY KONG : 1935 Sex: M Age: Race: White Pt. Location: 230 Patient Status: Ordered Date: 03/31/2019 5:00:00 AM Completed Date: 03/31/2019 11:46 AM Requesting Provider: GABRIEL PEREZ Attending Provider: GABRIEL PEREZ Report Copy To: Signs & Symptoms: R10.9 Unspecified abdominal pain I10 History: [place] THIS IS FOR A COLONOSCOPY FOR STRICTURE [...] documentation Electronically signed by:Kaleb Perry. Transcribed by: [email or web address], User Resident: Electronically Signed by: KALEB PERRY @ 03/31/2019 12:59 PM Normal [facility] Comment on above: Order Comment: , [...] Diastolic blood pressure 78 mm[Hg] Kylie DIETRICH [facility] 12-05-2023 14:30-0500 Heart rate 80 /min Kylie DIETRICH [facility] 12-05-2023 14:30-0500 Respiratory rate 12 /min Kylie DIETRICH [facility] 12-05-2023 14:30-0500 SaO2% (BldA) [Mass fraction] 96 % Kylie DIETRICH [facility] 12-05-2023 14:30-0500 Systolic blood pressure 148 mm[Hg] Kyliezak DIETRICH [facility] 12-05-2023 13:21-0500 Heart rate 73 /min Kyliezak DIETRICH [facility] 12-05-2023 13:21-0500 SaO2% (BldA) [Mass fraction] 95 % Kyliezak DIETRICH [facility] 12-05-2023 13:21-0500 Diastolic blood pressure 80 mm[Hg] Kyliezak DIETRICH [facility] 12-05-2023 13:21-0500 Mean blood pressure 104 mm[Hg] Kyliezak DIETRICH [facility] 12-05-2023 13:21-0500 Systolic blood pressure 151 mm[Hg] Kyliezak DIETRICH [facility] 12-05-2023 13:15-0500 Body temperature 97.52 [degF] Kyliezak DIETRICH [facility] 12-05-2023 13:15-0500 Diastolic blood pressure 99 mm[Hg] Kyliezak DIETRICH [facility] 12-05-2023 13:15-0500 Heart rate 73 /min Kyliezak DIETRICH [facility] 12-05-2023 13:15-0500 Mean blood pressure 104 mm[Hg] Kyliezak DIETRICH [facility] 12-05-2023 13:15-0500 Respiratory rate 9 /min Kyliezak DIETRICH [facility] 12-05-2023 13:15-0500 SaO2% (BldA) [Mass fraction] 97 % Kyliezak DIETRICH [facility] 12-05-2023 13:15-0500 Systolic blood pressure 114 mm[Hg] Kylie DIETRICH [facility] 12-05-2023 13:00-0500 Mean blood pressure 84 mm[Hg] Kyliezak DIETRICH [facility] 12-05-2023 12:55-0500 Mean blood pressure 86 mm[Hg] Kylie DIETRICH [facility] 12-05-2023 12:47-0500 Body temperature 97.34 [degF] Kylie DIETRICH [facility] 12-05-2023 12:40-0500 Respiratory rate 10 /min Kyliezak DIETRICH [facility] 12-05-2023 12:35-0500 Respiratory rate 10 /min Kyliezak DIETRICH [facility] 12-05-2023 12:30-0500 Respiratory rate 10 /min Kyliezak DIETRICH [facility] 12-05-2023 10:26-0500 Mean blood pressure 96 mm[Hg] Kyliezak DIETRICH [facility] 12-05-2023 10:26-0500 Body temperature 97.88 [degF] Kyliezak DIETRICH [facility] 11-20-2023 09:11-0500 Body height 180.3 cm Adriel Morgan DO Work Phone: [facility] 11-20-2023 09:11-0500 Body mass index (BMI) [Ratio] 25.94 kg/m2 Adriel Morgan DO Work Phone: [facility] 11-20-2023 09:11-0500 Body weight 84.37 kg Adriel Morgan DO Work Phone: [facility] 11-20-2023 09:11-0500 Diastolic blood pressure 60 mm[Hg] Adriel Morgan DO Work Phone: [facility] 11-20-2023 09:11-0500 Heart rate 66 /min Adriel Morgan DO Work Phone: [facility] 11-20-2023 09:11-0500 Systolic blood pressure 114 mm[Hg] Adriel Morgan DO Work Phone: [facility] 11-07-2023 08:30-0500 Body height 180.34 cm Nestor Ball Other [facility] Other 11-07-2023 08:30-0500 Body mass index (BMI) [Ratio] 25.33 kg/m2 Nestor Ball Other [facility] Other 11-07-2023 08:30-0500 Body weight 82.37 kg Nestor Ball Other [facility] Other 11-07-2023 08:30-0500 Diastolic blood pressure 73 mm[Hg] Nestor Ball Other [facility] Other 11-07-2023 08:30-0500 Respiratory rate 12 /min Nestor Ball Other [facility] Other 11-07-2023 08:30-0500 Systolic blood pressure 113 mm[Hg] Nestor Ball Other [facility] Other 10-10-2023 16:00-0500 Body temperature 98.1 [degF] Josafat Sun MD Work Phone: [facility] 10-10-2023 16:00-0500 Diastolic blood pressure 76 mm[Hg] Josafat Sun MD Work Phone: [facility] 10-10-2023 16:00-0500 Heart rate 68 /min Josafat Sun MD Work Phone: [facility] 10-10-2023 16:00-0500 Respiratory rate 17 /min Josafat Sun MD Work Phone: [facility] 10-10-2023 16:00-0500 SaO2% (BldA) [Mass fraction] 99 % Josafat Sun MD Work Phone: [facility] 10-10-2023 16:00-0500 Systolic blood pressure 149 mm[Hg] Josafat Sun MD Work Phone: [facility] 10-09-2023 22:34-0500 Body height 177.8 cm Josafat uSn MD Work Phone: [facility] 10-07-2023 14:30-0500 Body height 180.34 cm Imad Asaad Other [facility] Other 10-07-2023 14:30-0500 Body mass index (BMI) [Ratio] 25.24 kg/m2 Imad Asaad Other [facility] Other 10-07-2023 14:30-0500 Body weight 82.1 kg Imad Asaad Other [facility] Other 10-07-2023 14:30-0500 Diastolic blood pressure 63 mm[Hg] Imad Asaad Other [facility] Other 10-07-2023 14:30-0500 Systolic blood pressure 139 mm[Hg] Imad Asaad Other [facility] Other 10-04-2023 08:45-0500 Body height 180.34 cm Nestor Ball Other [facility] Other 10-04-2023 08:45-0500 Body mass index (BMI) [Ratio] 25.35 kg/m2 Nestor Ball Other [facility] Other 10-04-2023 08:45-0500 Body weight 82.46 kg Nestor Ball Other [facility] Other 10-04-2023 08:45-0500 Diastolic blood pressure 65 mm[Hg] Nestor Ball Other [facility] Other 10-04-2023 08:45-0500 Respiratory rate 12 /min Nestor Ball Other [facility] Other 10-04-2023 08:45-0500 Systolic blood pressure 133 mm[Hg] Nestor Ball Other [facility] Other 09-04-2023 08:45-0500 Body height 180.34 cm Nestor Ball Other [facility] Other 09-04-2023 08:45-0500 Body mass index (BMI) [Ratio] 26.11 kg/m2 Nestor Ball Other [facility] Other 09-04-2023 08:45-0500 Body weight 84.91 kg Nestor Ball Other [facility] Other 09-04-2023 08:45-0500 Diastolic blood pressure 71 mm[Hg] Nestor Ball Other [facility] Other 09-04-2023 08:45-0500 Respiratory rate 12 /min Nestor Ball Other [facility] Other 09-04-2023 08:45-0500 Systolic blood pressure 116 mm[Hg] Nestor Ball Other [facility] Other 08-21-2023 09:30-0400 Body height 180.34 cm Nestor Ball Other [facility] Other 08-21-2023 09:30-0400 Body mass index (BMI) [Ratio] 25.46 kg/m2 Nestor Ball Other [facility] Other 08-21-2023 09:30-0400 Body weight 82.83 kg Nestor Ball Other [facility] Other 08-21-2023 09:30-0400 Diastolic blood pressure 61 mm[Hg] Nestor Ball Other [facility] Other 08-21-2023 09:30-0400 Respiratory rate 12 /min Nestor Ball Other [facility] Other 08-21-2023 09:30-0400 Systolic blood pressure 115 mm[Hg] Nestor Ball Other [facility] Other 08-02-2023 09:45-0400 Body height 180.34 cm Nestor Ball Other [facility] Other 08-02-2023 09:45-0400 Body mass index (BMI) [Ratio] 25.86 kg/m2 Nestor Ball Other [facility] Other 08-02-2023 09:45-0400 Body weight 84.1 kg Nestor Ball Other [facility] Other 08-02-2023 09:45-0400 Diastolic blood pressure 64 mm[Hg] Nestor Ball Other [facility] Other 08-02-2023 09:45-0400 Respiratory rate 12 /min Nestor Ball Other [facility] Other 08-02-2023 09:45-0400 SaO2% (BldA) [Mass fraction] 96 % Nestor Ball Other [facility] Other 08-02-2023 09:45-0400 Systolic blood pressure 119 mm[Hg] Nestor Ball Other [facility] Other 07-08-2023 08:30-0400 Body height 180.34 cm Nestor Ball Other [facility] Other 07-08-2023 08:30-0400 Body mass index (BMI) [Ratio] 26.02 kg/m2 Nestor Ball Other [facility] Other 07-08-2023 08:30-0400 Body weight 84.64 kg Nestor Ball Other [facility] Other 07-08-2023 08:30-0400 Diastolic blood pressure 78 mm[Hg] Nestor Ball Other [facility] Other 07-08-2023 08:30-0400 Respiratory rate 12 /min Nestor Ball Other [facility] Other 07-08-2023 08:30-0400 Systolic blood pressure 135 mm[Hg] Nestor Ball Other [facility] Other 06-07-2023 14:15-0400 Body height 180.34 cm Nestor Ball Other [facility] Other 06-07-2023 14:15-0400 Body mass index (BMI) [Ratio] 26.72 kg/m2 Nestor Ball Other [facility] Other 06-07-2023 14:15-0400 Body weight 86.91 kg Nestor Ball Other [facility] Other 06-07-2023 14:15-0400 Diastolic blood pressure 71 mm[Hg] Nestor Ball Other [facility] Other 06-07-2023 14:15-0400 Respiratory rate 12 /min Nestor Ball Other [facility] Other 06-07-2023 14:15-0400 Systolic blood pressure 121 mm[Hg] Nestor Ball Other [facility] Other 05-02-2023 11:57-0400 Body height 177.8 cm Nestor E Ball Work Phone: [facility] [employer] DO Work Phone: 05-02-2023 11:57-0400 Body mass index (BMI) [Ratio] 26.54 kg/m2 Nestor E Ball Work Phone: [facility] [employer] [address] DO Work Phone: 05-02-2023 11:57-0400 Body surface area Derived from formula 2.02 m2 Nestor E Ball Work Phone: [facility] [employer] [address] DO Work Phone: 05-02-2023 11:57-0400 Body weight 83.92 kg Nestor E Ball Work Phone: [facility] [employer] [address] DO Work Phone: 05-02-2023 11:57-0400 Diastolic blood pressure 60 mm[Hg] Nestor E Ball Work Phone: [facility] DO Work Phone: 05-02-2023 11:57-0400 Heart rate 60 /min Nestor E Ball Work Phone: [facility] DO Work Phone: 05-02-2023 11:57-0400 Systolic blood pressure 112 mm[Hg] Nestor E Ball Work Phone: [facility] [employer] DO Work Phone: 04-23-2023 08:53-0400 Body temperature 97.8 [degF] DO Nestor Ball Work Phone: [facility] 04-23-2023 08:53-0400 Diastolic blood pressure 53 mm[Hg] DO Nestor Ball Work Phone: [facility] 04-23-2023 08:53-0400 Heart rate 70 /min DO Nestor Ball Work Phone: [facility] 04-23-2023 08:53-0400 Respiratory rate 16 /min DO Nestor Ball Work Phone: [facility] 04-23-2023 08:53-0400 SaO2% (BldA) [Mass fraction] 97 % DO Nestor Ball Work Phone: [facility] 04-23-2023 08:53-0400 Systolic blood pressure 91 mm[Hg] DO Nestor Ball Work Phone: [facility] 04-23-2023 04:43-0400 Body weight 83.1 kg DO Nestor Ball Work Phone: [facility] 04-22-2023 10:44-0400 Body height 177.8 cm DO Nestor Ball Work Phone: [facility] 04-12-2023 13:15-0400 Body height 180.34 cm Nestor Ball Other [facility] Other 04-12-2023 13:15-0400 Body mass index (BMI) [Ratio] 26.41 kg/m2 Nestor Ball Other [facility] Other 04-12-2023 13:15-0400 Body weight 85.91 kg Nestor Ball Other [facility] Other 04-12-2023 13:15-0400 Diastolic blood pressure 72 mm[Hg] Nestor Ball Other [facility] Other 04-12-2023 13:15-0400 Respiratory rate 12 /min Nestor Ball Other [facility] Other 04-12-2023 13:15-0400 Systolic blood pressure 121 mm[Hg] Nestor Ball Other [facility] Other 02-06-2023 12:30-0400 Body height 180.34 cm Nestor Ball Other [facility] Other 02-06-2023 12:30-0400 Body mass index (BMI) [Ratio] 26.39 kg/m2 Nestor Ball Other [facility] Other 02-06-2023 12:30-0400 Body weight 85.82 kg Nestor Ball Other [facility] Other 02-06-2023 12:30-0400 Diastolic blood pressure 80 mm[Hg] Nestor Ball Other [facility] Other 02-06-2023 12:30-0400 Respiratory rate 12 /min Nestor Ball Other [facility] Other 02-06-2023 12:30-0400 Systolic blood pressure 132 mm[Hg] Nestor Ball Other [facility] Other 01-14-2023 15:51-0400 Body height 177.8 cm Avel Camacho MD Work Phone: [facility] 01-14-2023 15:51-0400 Body temperature 97.5 [degF] Avel Camacho MD Work Phone: [facility] 01-14-2023 15:51-0400 Body weight 83.46 kg Avel Camacho MD Work Phone: [facility] 01-14-2023 15:51-0400 Diastolic blood pressure 79 mm[Hg] Avel Camacho MD Work Phone: [facility] 01-14-2023 15:51-0400 Heart rate 65 /min Avel Camacho MD Work Phone: [facility] 01-14-2023 15:51-0400 SaO2% (BldA) [Mass fraction] 97 % Avel Camacho MD Work Phone: [facility] 01-14-2023 15:51-0400 Systolic blood pressure 165 mm[Hg] Avel Camacho MD Work Phone: [facility] 12-31-2022 11:30-0400 Body height 180.34 cm Nestor Ball Other [facility] Other 12-31-2022 11:30-0400 Body mass index (BMI) [Ratio] 26.27 kg/m2 Nestor Ball Other [facility] Other 12-31-2022 11:30-0400 Body weight 85.46 kg Nestor Ball Other [facility] Other 12-31-2022 11:30-0400 Diastolic blood pressure 70 mm[Hg] Nestor Ball Other [facility] Other 12-31-2022 11:30-0400 Respiratory rate 12 /min Nestor Ball Other [facility] Other 12-31-2022 11:30-0400 Systolic blood pressure 137 mm[Hg] Nestor Ball Other [facility] Other Encounters Encounter Date Encounter Type Care Provider Facility Start: 12-10-2023 ambulatory Kylie Jordan ty:[facility] Start: 12-05-2023 End: 12-05-2023 ambulatory Kylie DIETRICH Facility[place] Start: 12-05-2023 End: 12-05-2023 Admission to same day surgery center Kylie DIETRICH [facility] Start: 11-22-2023 End: 11-22-2023 ambulatory Nestor Estrella Other [facility] Other Start: 11-22-2023 Telephone encounter Nestor Sameer G [facility] Start: 11-20-2023 End: 11-20-2023 ambulatory [facility] Ambulatory Start: 11-20-2023 End: 11-20-2023 Office outpatient visit 15 minutes [facility] DO Work Phone: [facility] Comment on above: Atherosclerosis of n ative coronary artery, unspecified whether angina present, unspecified whether chipewwa or transplanted heart; Stented coronary artery; Non-ST elevation myocardial infarction (NSTEMI) ([facility]); Hyperlipidemia, unspecified hyperlipidemia type; History of colon cancer; Never smoked any substance; Malignant neoplasm of urinary bladder, unspecified site ([facility]) Start: 11-07-2023 End: 11-07-2023 ambulatory Nestor Estrella Other [facility] Other Start: 11-07-2023 Office outpatient vi sit 15 minutes Nestor Estrella ISATU [facility] Start: 10-28-2023 End: 10-28-2023 ambulatory Imad Asaad Other [facility] Other Start: 10-28-2023 Telephone encounter Imad Asaad [facility] Start: 10-23-2023 End: 10-23-2023 ambulatory Nestor Estrella Facility:[facility] Start: 10-23-2023 End: 10-23-2023 ambulatory DO Nestor Estrella Work Phone: [facility] Work Phone: Start: 10-23-2023 End: 10-23-2023 Patient encounter procedure DO Nestor Estrella Work Phone: [facility]-CT Scan [facility] [place] Work Phone: Start: 10-10-2023 End: 10-10-2023 Emergency department patient visit Josafat Sun MD Work Phone: [facility] Start: 10-07-2023 End: 10-07-2023 ambulatory Imad Asaad Other [facility] Other Start: 10-07-2023 Office outpatient ne w 45 minutes Imad Asaad [facility] Start: 10-04-2023 End: 10-04-2023 ambulatory Nestor Ball Other [facility] Other Start: 10-04-2023 Office outpatient vi sit 15 minutes Nestor Ball [facility] Start: 09-04-2023 End: 09-04-2023 ambulatory Nestor Ball Other [facility] Other Start: 09-04-2023 Office outpatient vi sit 15 minutes Nestor Ball [facility] Start: 09-04-2023 Telephone encounter Nestor Ball FP [facility] Start: 08-21-2023 End: 08-21-2023 ambulatory Nestor Ball Other [facility] Other Start: 08-21-2023 Office outpatient vi sit 15 minutes Nestor Ball [facility] Start: 08-21-2023 Telephone encounter Nestor Ball FP [facility] Start: 08-09-2023 End: 08-09-2023 ambulatory Nestor Ball Other [facility] Other Start: 08-09-2023 Telephone encounter Nestor Ball FP [facility] Start: 08-06-2023 End: 08-06-2023 ambulatory Nestor Ball Other [facility] Other Start: 08-06-2023 Telephone encounter Nestor Ball FP [facility] Start: 08-02-2023 End: 08-02-2023 ambulatory Nestor Ball Other [facility] Other Start: 08-02-2023 Office outpatient vi sit 15 minutes Nestor Estrella [facility] Start: 07-31-2023 End: 07-31-2023 ambulatory Nestor Estrella Other [facility] Other Start: 07-31-2023 Telephone encounter Nestor SINGH G [facility] Start: 07-10-2023 End: 07-10-2023 ambulatory Nestor Estrella Other [facility] Other Start: 07-10-2023 Telephone encounter Nestor Estrella FP G [facility] Start: 07-08-2023 Chart Update Nestor soriano Work Phone: [facility] [email or web address] DO Work Phone: Start: 07-08-2023 End: 07-08-2023 ambulatory Nestor Estrella Other [facility] Other Start: 07-08-2023 Patient encounter procedure Nestor Estrella [facility] Start: 07-08-2023 Telephone encounter Nestor SINGH G [facility] Start: 06-25-[address] Adriel fiore Mckee Facility:[id number] Start: 06-17-2023 ambulatory Kylie Ramseyi ty:[facility] Start: 06-12-2023 ambulatory Kylie DIETRICH Facili ty:[facility] Start: 06-07-2023 End: 06-07-2023 ambulatory Nestor Estrella Other [facility] Other Start: 06-07-2023 Office outpatient vi sit 15 minutes Nestor Estrella [facility] Start: 06-06-2023 ambulatory Kylie DIETRICH Facili ty:[id number] Start: 05-16-2023 Rx Renewal Nestor soriano Work Phone: [facility] [email or web address] DO Work Phone: Start: 05-14-2023 End: 05-15-2023 ambulatory Kylie DIETRICH Facility:[facility] Start: 05-13-2023 ambulatory Kylie DIETRICH Facili ty:[id number] Start: 05-10-2023 End: 05-11-2023 ambulatory Kylie DIETRICH Facility:[facility] Start: 05-10-2023 End: 05-11-2023 ambulatory Kylie DIETRICH Facility:[facility] Start: 05-09-2023 End: 05-09-2023 ambulatory Nestor Estrella Other [email or web address] Other Start: 05-09-2023 Telephone encounter Nestor SIGNH [facility] Start: 05-02-2023 Telephone encounter Nestor Sameer SINGH [facility] Start: 05-02-2023 Office outpatient vi sit 15 minutes Nestor [place] Sameer Work Phone: [facility] 250 DO Work Phone: Start: 05-02-2023 End: 05-02-[address] Nestor Estrella [facility] Other Start: 04-22-2023 Telephone encounter Nestor SINGH [facility] Start: 04-22-2023 End: 04-23-2023 Evaluation and management of inpatient Nestor Estrella Facility:[facility] Start: 04-22-2023 End: 04-23-2023 Evaluation and management of inpatient DO Nestor Estrella Work Phone: [facility] [place] [facility] Work Phone: Start: 04-22-2023 End: 04-22-[address] Adriel Morgan [facility] Other Start: 04-12-2023 End: 04-12-2023 ambulatory Nestor Estrella Other [email or web address] Other Start: 04-12-2023 Office outpatient vi sit 15 minutes Nestor Estrella [facility] Start: 04-08-2023 End: 04-09-2023 ambulatory Kylie Lauro DIETRICH Facility:[facility] Start: 04-08-2023 End: 04-08-2023 Patient encounter procedure Kylie DIETRICH [facility] [place] Start: 03-19-2023 End: 03-19-2023 ambulatory Nestor Estrella Other [facility] Other Start: 03-19-2023 Telephone encounter Nestor [facility] Start: 03-11-2023 End: 03-12-2023 ambulatory Kylie DIETRICH Facility:[facility] Start: 02-06-2023 End: 02-06-2023 ambulatory Nestor Estrella Other [facility] Other Start: 02-06-2023 Office outpatient vi sit 15 minutes Nestor Estrella [facility] Start: 02-06-2023 Telephone encounter Nestor [facility] Start: 01-31-2023 End: 01-31-2023 ambulatory Nestor Estrella Other [facility] Other Start: 01-31-2023 Telephone encounter Nestor SINGH [facility] Start: 01-18-2023 End: 01-19-2023 ambulatory TASHA CHILDERS . Facility: Start: 01-14-2023 End: 01-14-2023 ambulatory AVEL CAMACHO Facility:[facility] Start: 01-14-2023 End: 01-14-2023 Patient encounter procedure Avel Camacho MD Work Phone: [facility] Comment on above: Irregular bowel habi ts (Primary Dx) Start: 01-07-2023 Telephone encounter Nestor Sameer [facility] Start: 01-07-2023 End: 01-08-[address] KYLIE DIETRICH . [employer] Other Start: 12-31-2022 End: 12-31-2022 ambulatory Nestor Estrella Other [facility] Other Start: 12-31-2022 Office outpatient vi sit 25 minutes Nestor LUNSFORD [facility] Start: 12-28-2022 ambulatory Kylie DIETRICH Facili ty:[facility] Start: 12-27-2022 Telephone encounter Nestor Sameer [facility] Start: 12-27-2022 End: 12-28-[address] NESTOR ESTRELLA [facility] [employer] Other Start: 12-25-2022 End: 12-25-2022 ambulatory Reid Ann Other [facility] Other Start: 12-25-2022 Telephone encounter Reid Ann [facility] Start: 12-20-[address] KYLIE DIETRICH . Fac ility:[facility] Start: 12-12-[address] KYLIE DIETRICH . Fac ility:[facility] Start: 11-12-2022 End: 11-12-[address] KYLIE DIETRICH . Facility:[facility] Start: 11-04-2022 Evaluation and management of inpatient JIMMY ESTRELLA Facility:[facility] Start: 11-04-2022 End: 11-04-2022 Evaluation and management of inpatient [facility] Outside Imaging Ct Scan So [facility] Second Opinion Start: 11-03-2022 End: 11-05-2022 Evaluation and management of inpatient LUKE ALN Facility:[facility] Start: 11-03-2022 End: 11-03-[address] HANG OHARA Facility:[facility] Start: 11-02-2022 End: 11-02-2022 Patient encounter procedure Kylie DIETRICH [facility] Start: 10-04-2022 End: 10-04-[address] KYLIE DIETRICH . Facility:[facility] Start: 09-28-2022 End: 09-29-[address] NESTOR ESTRELLA Facility:[facility] Start: 09-28-2022 End: 09-28-2022 Patient encounter procedure Kylie DIETRICH [facility] Start: 09-19-2022 End: 09-19-2022 Patient encounter procedure Marina Hooper [facility] Start: 08-23-2022 End: 08-23-[address] KYLIE DIETRICH . Facility:[facility] Start: 08-08-2022 End: 08-08-2022 Patient encounter procedure BRANDO BARRAGAN [facility] Start: 07-02-2022 End: 07-03-[address] NESTOR ESTRELLA Facility:[facility] Start: 06-11-2022 End: 06-11-[address] KYLIE DIETRICH . Facility:[facility] Start: 06-04-2022 End: 06-04-2022 Patient encounter procedure Kylie DIETRICH [facility] Start: 04-30-2022 End: 04-30-[address] KYLIE DIETRICH . Facility:[facility] Start: 04-25-2022 End: 04-25-2022 Patient encounter procedure Marina Irma Hooper [facility] Start: 04-09-2022 End: 04-09-[address] NESTOR ESTRELLA Facility:[facility] Start: 04-06-2022 End: 04-06-[address] NESTOR ESTRELLA Facility:[facility] Start: 04-02-2022 End: 04-02-[address] KYLIE DIETRICH . Facility:[facility] Start: 03-30-2022 End: 03-30-2022 Patient encounter procedure Kylie DIETRICH [facility] Start: 03-28-2022 End: 03-29-[address] NESTOR ESTRELLA Facility:[facility] Start: 03-05-2022 End: 03-05-[address] KYLIE DIETRICH . Facility:[facility] Start: 03-02-2022 End: 03-02-2022 Patient encounter procedure Kylie DIETRICH [facility] Start: 02-07-2022 End: 02-08-[address] NESTOR ESTRELLA Facility:[facility] Start: 01-08-2022 End: 01-08-2022 Patient encounter procedure Kylie Restrepo KARLO [facility] Start: 05-09-2017 Ambulatory ADRIEL MCNEILL [facility] Ambulatory Start: 05-06-2017 End: 05-10-2017 Ambulatory ADRIEL RIOS [facility] Ambulato ry Procedures Date Procedure [...] DTaP/Tdap/Td Vaccines (2 - Td or Tdap) [facility] Start: 01-18-2033 Tetanus vaccination TETANUS [facility] Start: 10-09-2024 Diabetes mellitus screening Diabetes Screening [facility] Start: 09-28-2024 End: 09-28-2024 Patient encounter procedure 09/28/2024 2:00 PM EST [facility] [address] [place] [address] [place] [address] Memo Mccall MD [address] [place] [id number] [facility] Start: 05-20-2024 End: 05-20-2024 Patient encounter procedure 05/20/2024 9:50 AM EDT Office Visit [facility] [address] [facility] [address] [place] [id number] Adriel Morgan S, DO [address] [place] [address] [facility] Start: 12-16-2023 ambulatory Ambulatory Facility:[facility] [place] Start: 11-20-2023 FUV, Provider: Adriel Morgan, Status: Pen, Time: 9:20 AM FUV, Provider: Adriel Morgan, Status: Pen, Time: 9:20 AM [facility] DO Work Phone: Start: 06-25-2023 ECHO, Provider: DANIELLA NUNEZ [facility] 01,[id number], Status: Pen, Time: 12:30 PM ECHO, Provider: TANNER [facility] 01,[id number], Status: Pen, Time: 12:30 PM [facility] 250 DO Work Phone: Start: 06-21-2023 COVID-19 VACCINE ( season) COVID-19 VACCINE ( season) [facility] Start: 06-21-2023 Influenza vaccination INFLUENZA VACC INE (#1) [facility] Start: 04-23-2023 [facility] Start: 04-22-2023 End: 04-22-2023 Referral to pot firer [facility] Start: 04-22-2023 Referral to cardiac rehabilitation program [facility] Start: 04-22-2023 Hospital admission [facility] Start: 10-21-2022 ADVANCE DIRECTIVE DISCUSSION ADVANCE DIRECTIVE DISCUSSION [facility] Start: 10-21-2022 DEPRESSION ASSESSMENT DEPRESSION ASS ESSMENT [facility] Start: 06-21-2022 Influenza vaccination INFLUENZA (#1) [facility] Start: 10-24-2018 Pneumococcal vaccination PNEUM OCOCCAL VACCINE SERIES (2 - PCV) [facility] Start: 10-24-2018 Pneumococcal Vaccine : 65+ Years (2 - PCV) Pneumococcal Vaccine: 65+ Years (2 - PCV) [facility] Start: 01-22-2015 DIABETES SCREEN DIABETES SCREEN [facility] Start: 2001 PNEUMOCOCCAL: 65+ (1 - PCV) PNEUMOCOCCAL: 65+ (1 - PCV) [facility] Start: 1986 SHINGRIX VACCINE (1 of 2) SHINGRIX VACCINE (1 of 2) [facility] Start: 1981 Screening for malign ant neoplasm of colon COLORECTAL CANCER SCREENING DISCUSSION [facility] Start: 1955 Urine microalbumin profile DTAP,TDAP,TD (1 - Tdap) [facility] Start: 1936 COVID-19 VACCINE (#1) COVID-19 VACCI NE (#1) [facility] Start: 1936 Lipid panel Lipid Panel [facility] Start: 1936 Medicare Annual Well ness Visit Medicare Annual Wellness Visit (AWV) [facility] Calprotectin [Mass/m ass] in Stool [facility] End: 10-09-2023 GOLD TOP TUBE [facility] Comment on above: Once for 1 Occurrenc es starting 10/09/2023 until 10/09/2023 End: 10-09-2023 LAVENDER TOP TUBE [facility] Comment on above: Once for 1 Occurrenc es starting 10/09/2023 until 10/09/2023 Patient Education Coronary Angio plasty (DC) Coronary Stenting (DC) Angina (DC) Chest Pain (DC) Drug Eluting Stents [facility] Work Phone: Patient referral [facility] Work Phone: End: 10-09-2023 RAINBOW DRAW [facility] Work Phone: Comment on above: One Time for 1 Occur rences starting 10/09/2023 until 10/09/2023 Immunizations Immunization Date Immunization Notes Care Provider Fa darleen 07-08-2023 influenza, high dose seasonal, preservative-free Nestor Estrella Other [facility] Other 01-18-2023 tetanus toxoid, reduced diphtheria toxoid, and acellular pertussis vaccine, adsorbed Nestor Estrella Work Phone: [place] [address] DO Work Phone: 08-30-2022 COVID-19 Pfizer (Pediatric) Nestor Estrella Other [facility] Other 08-30-2022 Pfizer COVID-19 Vac Bivalent 30 MCG/0.3ML Intramuscular Suspension Nestor Estrelal Work Phone: [place] [address] DO Work Phone: 07-02-2022 Fluad Quadrivalent 0 .5 ML Intramuscular Prefilled Syringe Nestor Estrella Work Phone: [place] [address] DO Work Phone: 07-02-2022 influenza virus vaccine, split virus (incl. purified surface antigen) Nestor Estrella Other [facility] Other 07-02-2022 influenza virus vaccine, unspecified formulation Josafat Sun MD Work Phone: [facility] 01-19-2022 Comirnaty 30 MCG/0.3 ML Intramuscular Suspension Nestor Estrella Work Phone: [facility] 250 DO Work Phone: 01-19-2022 COVID-19 Vaccine Pfizer - Documentation Purposes Only Nestor Estrella Other [facility] Other 10-01-2021 zoster vaccine recombinant Nestor Estrella Work Phone: [place] [address] DO Work Phone: 07-31-2021 diphtheria, tetanus toxoids and acellular pertussis vaccine, unspecified formulation Nestor Estrella Other [facility] Other 07-31-2021 influenza virus vaccine, split virus (incl. purified surface antigen) Nestor Estrella Other [facility] Other 07-27-2021 influenza, seasonal, injectable, preservative free Nestor Estrella Work Phone: [facility] 250 DO Work Phone: 06-09-2021 Pfizer-BioNTech COVID-19 Vacc 30 MCG/0.3ML Intramuscular Suspension Nestor Estrella Work Phone: [place] [address] DO Work Phone: 04-14-2021 zoster vaccine recombinant Nestor Estrella Work Phone: [place] [address] DO Work Phone: 12-02-2020 Pfizer-BioNTech COVID-19 Vacc 30 MCG/0.3ML Intramuscular Suspension Nestor Estrella Work Phone: [facility] 250 DO Work Phone: 11-10-2020 Pfizer-BioNTech COVID-19 Vacc 30 MCG/0.3ML Intramuscular Suspension Nestor Estrella Work Phone: [place] [address] DO Work Phone: 09-26-2020 bacillus calmette-blossom vaccine Kyliezak DIETRICH [facility] 09-12-2020 bacillus calmette-blossom vaccine Kyliezak DIETRICH [facility] 09-05-2020 bacillus calmette-blossom vaccine Kylie DIETRICH [facility] 08-29-2020 bacillus calmette-blossom vaccine Kylie DIETRICH [facility] 08-15-2020 bacillus calmette-blossom vaccine Kylie DIETRICH [facility] 08-08-2020 bacillus calmette-blossom vaccine Klyie DIETRICH [facility] 07-01-2020 influenza virus vaccine, split virus (incl. purified surface antigen) Nestor Estrella Other [facility] Other 08-03-2019 influenza, seasonal, injectable Nestor Estrella Work Phone: [place] [address] DO Work Phone: 07-15-2019 influenza virus vaccine, split virus (incl. purified surface antigen) Nestor Estrella Other [facility] Other 07-15-2018 influenza virus vaccine, split virus (incl. purified surface antigen) Nestor Estrella Other [facility] Other 07-15-2018 Seasonal trivalent influenza vaccine, adjuvanted, preservative free Nestor Estrella Work Phone: [place] [address] DO Work Phone: 10-24-2017 pneumococcal polysaccharide vaccine, 23 valent Nestor Estrella Work Phone: [place] [address] DO Work Phone: 06-27-2016 influenza virus vaccine, split virus (incl. purified surface antigen) Nestor Estrella Other [facility] Other 06-27-2016 pneumococcal conjuga te vaccine, 13 valent Nestor Estrella Other [facility] Other 10-29-2013 zoster vaccine, live Benjami amy Estrella Work Phone: -[facility] [facility] DO Work Phone: Payers Date Payer Category Payer Self-pay [id number] 2022 Unknown 2016 Private Health Insurance AETDARNELL Keene ETNA MEDICARE SUPPLEMENT [id number] 2016-Present [phone] [address] [address] [place] [address] Indemnity [id number] 2003 Medicare [id number]. 1.13.159. [id number] 2001 Medicare [id number] 1959 Medicare [id number] 1959 Private Health Insurance [facility] [id number] 1936 Unknown [id number] 2.16.840.1.270851.3.579. 2.594 1936 Unknown [id number] 2.16.840.1.924126.3.579. 2.594 1936 Unknown [id number] 2.16.840.1.921712.3.579. 2.593 1936 Unknown [id number] 2.16.840.1.628820.3.579. 2.593 1936 Unknown [id number] 2.16.840.1.845558.3.579. 2.593 1936 Unknown [id number] 2.16.840.1.394845.3.579. 2.593 1936 Unknown [id number] 2.16.840.1.125680.3.579. 2.593 1936 Unknown [id number] 2.16.840.1.186352.3.579. 2.593 1936 Unknown [id number] 2.16.840.1.741906.3.579. 2.593 1936 Unknown [id number] 2.16.840.1.181437.3.579. 2.593 1936 Unknown [id number] 2.16.840.1.444111.3.579. 2.593 1936 Unknown [id number] 2.16.840.1.290062.3.579. 2.593 1936 Unknown [id number] 2.16.840.1.743036.3.579. 2.593 1936 Unknown [id number] 2.840.1.384744.3.579. 2.593 1936 Unknown [id number] 2.840.1.149082.3.579. 2.593 1936 Unknown [id number] 2.840.1.925232.3.579. 2.593 1936 Unknown [id number] 2.840.1.271748.3.579. 2.593 1936 Unknown [id number] 2.840.1.537486.3.579. 2.593 1936 Unknown [id number] 2.840.1.202485.3.579. 2.593 1936 Unknown [id number] 2.840.1.433936.3.579. 2.593 1936 Unknown [id number] 2..840.1.942257.3.579. 2.593 1936 Unknown [id number] 2.16.840.1.284937.3.579. 2.1068 1936 Unknown [id number] 2.16.840.1.914464.3.579. 2.356 1936 Unknown [id number] 2.16840.1.196384.3.579. 2.356 1936 Unknown [id number] 2.16.840.1.779439.3.579. 2.356 1936 Unknown [id number] 2.16.840.1.670182.3.579. 2.1244 1936 Unknown [id number] 2.16.840.1.909481.3.579. 2.727 1936 Unknown [id number] 2.16.840.1.318528.3.579. 2.727 1936 Unknown [id number] 2.16.840.1.660148.3.579. 2.727 1936 Unknown [id number] 2..840.1.010172.3.579. 2.727 1936 Unknown [id number] 2.840.1.886870.3.579. 2.727 1936 Unknown [id number] 2..840.1.809798.3.579. 2.727 1936 Unknown [id number] 2.840.1.946290.3.579. 2.727 1936 Unknown [id number] 2.840.1.735802.3.579. 2.727 1936 Unknown [id number] 2.840.1.973635.3.579. 2.727 1936 Unknown [id number] 2.16.840.1.685836.3.579. 2.727 1936 Unknown [id number] 2.16.840.1.577991.3.579. 2.727 1936 Unknown [id number] 2..840.1.076319.3.579. 2.727 Unknown [id number] 2.16.840.1.574289.3.579. 2.531 Unknown [id number] 2.16840.1.874509.3.579. 2.531 Social History Date Type Detail Facility Start: 09-01-2021 End: 11-04-2022 Tobacco smoking status Never smoked tobacco (finding) [facility] Start: 11-04-2022 End: 11-20-2023 Sex Assigned At Male [facility] Start: 01-23-2012 End: 11-04-2022 Tobacco use and exposure Smokeless tobacco non-user [facility] Work Phone: Start: 01-14-2023 End: 11-20-2023 Alcohol intake Current drinker of alcohol (finding) [facility] Start: 01-14-2023 Alcohol Comment 1/5 of whiskey every 6 months [facility] Start: 1935 Sex Assigned At Not on file [facility] Start: 1935 Sex Assigned At Male [facility] Start: 11-04-2022 End: 11-20-2023 No illicit drug use No illicit drug use [facility] 250 DO Work Phone: Start: 11-04-2022 Alcohol intake Lifetime non-d yu (finding) [facility] Start: 11-20-2023 Alcohol Comment beer [facility] Work Phone: Start: 11-10-2023 End: 11-20-2023 Exposure to SARS-CoV-2 (event) Not sure [facility] Medical Equipment Procedure Code Equipment Code Equipment Origin al Text Equipment Identifier Dates CL STENT GLENNY FRONTIER 3.0 X 12 FDA Start: 04-22-2023 Goals Date Patient Goal Desired Activity /State Functional Status Date Assessment Result Facility 12-05-2023 Functional Status No [facility] 04-23-2023 Functional status Patient at Baseline [facility] Work Phone: Mental Status Date Assessment Result Facility 04-23-2023 Cognitive function Cognitive Sta tus Patient at Baseline [facility] Work Phone: Clinical Notes 01-08-2022 [...] including vitamins, herbs, eye drops, creams, and qoyz-hsl-zvviwuu medicines. Any problems you or family members [...] provider tells you to take them. Taking sdoo-zie-avfwuiq medicines, vitamins, herbs, and supplements. General instructions [...] provider. Document Revised: 10/12/2022 Document Reviewed: 10/12/2022 LEYIO Patient Education 2022 [employer]. 12/05/2023 13:36:01 Saldaña Catheter Care, Male-[facility]USTOM) Saldaña Catheter Care, Male A Saldaña catheter [...] cotton underwear to absorb moisture and keep stretcher and drier. 6. Keep the drainage bag below the [...] Urology [address] , [place] [address]- Business (1) When:12/12/2023 12:47:26 [facility] 12-05-2023 Note [id number]#[id number] [facility] 11-20-2023 History of Present illness Narrative Subjective [...] visit. 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 Atherosclerosis of chipewwa coronary artery, unspecified whether angina present, unspecified whether chipewwa or transplanted heart 2. Stented coronary artery 3. Non-ST elevation myocardial infarction (NSTEMI) ([facility]) 4. Hyperlipidemia, unspecified hyperlipidemia type 5. History of colon cancer 6. Never smoked any substance 7. Malignant neoplasm of urinary bladder, unspecified site ([facility]/HCC) Scribe Attestation By signing my name below, Radha Robb LPN , Scribe attest that this documentation has been prepared under the direction and in the presence of Adriel Morgan DO. documented in this encounter [facility] Work Phone: 11-20-2023 Instructions Lorena Garcia [...] of your visit. documented in this encounter [facility] Work Phone: 11-07-2023 Evaluation note Encounter [...] at HS, restarting at first s/s constipation [facility] Other [id number] Miscellaneous Notes* CDU Provider Note - Raulito [...] see in follow up, our CDU clinical rehabilitation caseworker will assist the patient with their follow [...] and ambulatory referrals. [facility] Progress [facility]* CDU Provider Note - Raulito [...] see in follow up, our CDU clinical rehabilitation caseworker will assist the patient with their follow [...] instructions, discharge summary, prescriptions, and ambulatory referrals. [facility] Work Phone: 1(324) 357-865812-21-2023 Hospital Discharge instructions* Discharge Instructions* Seferino Han, [employer] REAMER-CONSUMER AFFAIRS DIRECTOR - 10/10/2023 3:46 PM EST Please call GI to schedule a follow-up appointment. Follow-up: Call as soon as possible for an appointment: Gastroenterology Clinic: [phone] [facility] Emergency [facility] Note* Tracey Lawrence RN - 10/10/2023 1:59 PM EST Reason for Consult: Keith Documentation Spoke with Kennedy Kong @ 1219 Action Plan: Emergency Department Solar Installation Manager and discussed the Medicare Outpatient Observation Notice (KEITH). Patient's questions answered and they verified understanding. Patient instructed to call Medicare at1-800-MEDICARE ( ) if they have any additional questions. Document signed by patient and Solar Installation Manager. Copy provided for patient. Document scanned to [email or web address] [email or web address] Emergency Department Clinical Solar Installation Manager [id number] Available via secure chat [facility]12-21[facility] Emergency department Note* Tracey Lawrence RN - 10/10/2023 1:59 PM EST Reason for Consult: Keith Documentation Spoke with Kennedy Kong @ 1219 Action Plan: Emergency Department Solar Installation Manager and discussed the Medicare Outpatient Observation Notice (KEITH). Patient's questions answered and they verified understanding. Patient instructed to call Medicare at1-800-MEDICARE ( ) if they have any additional questions. Document signed by patient and Solar Installation Manager. Copy provided for patient. Document scanned to [email or web address] Tracey ANDERSON Emergency Department Clinical Solar Installation Manager [id number] Available via secure chat * Bronwyn Schaeffer [...] obstruction Disposition: Observation Unit Patient Kennedy Kong [id number] to be placed in observation unit for [...] note was dictated with the assistance of Oke[employer] dictation software. Attempts were made to proofread [...] Denies abd pain, nausea. documented in this [facility]12-21-2023 Physician Emergency department Note* Bronwyn [...] obstruction Disposition: Observation Unit Patient Kennedy Kong [id number] to be placed in observation unit for [...] note was dictated with the assistance of [employer] dictation software. Attempts were made to proofread text, however some errors may still be present. Bronwyn Schaeffer MD Resident 10/10/23 0510 [facility] Work Phone: [phone] Emergency department Note* Dipti Patricia RN - 10/10/2023 1:38 AM EST Bed: E021 Expected date: Expected time: Means of arrival: Comments: triage [facility]12-20-2023 Emergency department Note* Lucy Ibarra RN - 10/09/2023 10:32 PM EST Pt to ED from OSH for SBO. Last BM approx 2 hrs ago, but hadn't fr 7 days prior to that. Vomited this am. Denies abd pain, nausea. 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 [facility] Other 12-15-2023 Evaluation note* Encounter Date Diagnosis [...] or fever. High fiber, low residue diet. [facility] Other 11-15-2023 Evaluation note* Encounter Date Diagnosis [...] - Z90.49) Secondary to IBD, in remission [facility] Other 11-01-2023 Evaluation note* Encounter Date Diagnosis [...] area clean. Duoderm may help protect area [facility] Other 11-01-2023 Evaluation note* Encounter Date Diagnosis Assessment Notes Treatment Notes Treatment Clinical Notes Aug, Pressure injury of sacral region, stage 1 (ICD-10 - L89.151) [facility] Other 10-17-2023 Evaluation note* Encounter Date Diagnosis Assessment Notes Treatment Notes Treatment Clinical Notes Jul, Dysuria (ICD-10 - R30.0) [facility] Other 10-13-2023 Evaluation note* Encounter Date Diagnosis [...] continue Tylenol, hot showers, avoid strenuous activity [facility] Other 09-18-2023 Evaluation note* Encounter Date Diagnosis [...] cancer (ICD-10 - Z85.51) No s/s recurrence [facility] Other 08-18-2023 Evaluation note* Encounter Date Diagnosis Assessment Notes Treatment Notes Treatment Clinical Notes May, Spider bite wound, accidental or unintentional, initial encounter (ICD-10 - T63.301A) May, Generalized muscle ache (ICD-10 - M79.10) May, Adverse reaction to statin medication (ICD-10 - T46.6X5A) May, Elevated cholesterol (ICD-10 - E78.00) [facility] Other 07-25-2023 Note [id number]:[address] [place] [address] 05-14-2023 NoteCustom Cystoscopy ? Voiding after the [...] if you have a fever over 100 degrees.[facility] 05-02-2023 Evaluation note* Encounter Date Diagnosis Assessment Notes Treatment Notes Treatment Clinical Notes Apr, Tinea pedis of both feet (ICD-10 - B35.3) [facility] Other 07-04-2023 Progress note Author Hang Pedersen [facility] April 23, 2023 9:24am Note Date/Time April 23, 2023 9:20a m [facility] [address] [place] [address] Cardiology Progress Note Signed Patient: Kennedy Kong MR#: [id number] : 1935 Acct:[id number] Age/Sex: 87 / M Adm Date: 3 Loc: Room: [address] [place] [address] Type: ADM IN Attending Dr: Kiki Motta [...] MPV Neut % (Auto) Lymph % (Auto) Callaway % (Auto) Eos % (Auto) Baso % (Auto) Nucleat RBC Rel Count Neut # (Auto) Lymph # (Auto) Callaway # (Auto) Eos # (Auto) Baso # (Auto) PHA Creatinine Clear Sodium Potassium Chloride Carbon Dioxide Anion Gap BUN Creatinine Est GFR (CKD-EPI) Glucose Calcium Troponin I High Sens 94470.8 H* 34001.7 H* 66416.2 H* Triglycerides Cholesterol LDL Cholesterol, Calc VLDL Cholesterol HDL Cholesterol Cholesterol/HDL Ratio 04/22/23 04/23/23 04/23/23 23:35 03:41 03:41 Corrected WBC 8.1 Uncorrected WBC Count 8.1 RBC 4.52 Hgb 13.4 Hct 40.6 MCV 89.8 MCH 29.7 MCHC 33.1 RDW 13.6 Plt Count 215 MPV 6.8 Neut % (Auto) 73.2 Lymph % (Auto) 10.5 Callaway % (Auto) 14.1 Eos % (Auto) 1.5 Baso % (Auto) 0.7 Nucleat RBC Rel Count 0.1 Neut # (Auto) 5.9 Lymph # (Auto) 0.9 L Callaway # (Auto) 1.1 H Eos # (Auto) 0.1 Baso # (Auto) 0.1 PHA Creatinine Clear 55.30 Sodium 137 Potassium 4.5 Chloride 106 Carbon Dioxide 25.0 Anion Gap 10.5 BUN 24 Creatinine 0.99 Est GFR (CKD-EPI) > 60.0 Glucose 110 H Calcium 8.7 Troponin I High Sens 36280.0 H* Triglycerides 97 Cholesterol 148 LDL Cholesterol, Calc 73 VLDL Cholesterol 19 HDL Cholesterol 56 Cholesterol/HDL Ratio 2.6 04/23/23 03:41 Corrected WBC Uncorrected WBC Count RBC Hgb Hct MCV MCH MCHC RDW Plt Count MPV Neut % (Auto) Lymph % (Auto) Callaway % (Auto) Eos % (Auto) Baso % (Auto) Nucleat RBC Rel Count Neut # (Auto) Lymph # (Auto) [place]away # (Auto) Eos # (Auto) Baso # (Auto) PHA Creatinine Clear Sodium Potassium Chloride Carbon Dioxide Anion Gap BUN Creatinine Est GFR (CKD-EPI) Glucose Calcium Troponin I High Sens 25539.2 H* Triglycerides Cholesterol LDL Cholesterol, Calc VLDL [...] Please make sure patient has follow-up in [facility] within 10 days. Pending a favorable clinical [...] <Electronically signed by Hang Pedersen MD> 04/23/23923 [facility] Work Phone: 1(570) 916-524607-03-2023 Consult note Author W Eddie [facility] April 22, 2023 12:46pm Note Date/Time April 22, 2023 12:42 pm [facility] [address] [place] [address] Cardiology Consult Note Signed Patient: Kennedy Kong MR#: [id number] : 1935 Acct:[id number] Age/Sex: 87 / M Adm Date: 3 Loc: Room: [address] [place] [address] Type: ADM IN Attending Dr: Kiki Motta MD Copies to: MD Nestor Todd DO W Scott Sheldon, DO~ Cardiology HPI History of Present Illness Consult Date: 04/22/23 Reason for Consult: Non-ST elevation MN/ACS HPI: Mr. Kong is a 87 year old male seen in interventional cardiology consultation at request of hospitalist and gentleman who was transferred from [place] emergency room after being awakened with chest discomfort at 3 AM this morning. The discomfort radiated to his shoulder, back, left side; finally drove himself to the emergency room, he received 1 sublingual nitroglycerin with relief. Initial high-sensitivity troponin was elevated at 648; initial ECGs revealed sinus rhythm with J-point elevation in the inferolateral leads, however somewhat similar to previous remote ECG at [place] had on record Patient was excepted to the hospitalist service this morning. He did not receive any upstream heparin or antiplatelet therapies, [place] ECG and labs are reviewed there are [...] signed by Ko Morgan DO> 04/22/23 1246 [facility] Work Phone: 1(897) 554-706307-03-2023 [facility] Procedure [facility]07-03-2023 History and physical note Author Kiki Motta [facility] April 22, 2023 11:53am Note Date/Time April 22, 2023 11:10 am [facility] [address] [place] [address] Hospitalist H&P Signed Patient: Kennedy Kong MR#: [id number] : 1935 Acct:[id number] Age/Sex: 87 / M Adm Date: 3 Loc: Room: [address] [place] [address] Type: ADM IN Attending Dr: Kiki Motta [...] negative unless noted below or in HPI [facility] Attestation Statement: The following information was validated [...] signed by Kiki Motta MD> 04/22/23 1153 [facility] Work Phone: 1(147) 894-259206-23-2023 Evaluation note* Encounter Date Diagnosis Assessment Notes Treatment Notes Treatment Clinical Notes Mar, Tinea pedis of both feet (ICD-10 - B35.3) Keep dry, cleanse socks daily and open to air at home. Use cream bid and take Lamisil qd x 14 days [facility] Other 04-19-2023 Evaluation note* Encounter Date Diagnosis Assessment Notes Treatment Notes Treatment Clinical Notes Jan, Carbuncle and furuncle of buttock (ICD-10 - L02.33) Warm compresses or warm soak. 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 Author [...] - follow up as needed. Avel Camacho, [facility]03-27-2023 Nurse Note* Micaela Henderson MA - [...] Temperature: No Drains: No [facility] History of Present illness Narrative* Avel Camacho [...] needed. Avel Camacho MD [facility]23 Evaluation note* Encounter Date Diagnosis Assessment Notes [...] Diet adjustements to control constipation and diarrhea [facility] Other 03-09-2023 Evaluation note* Encounter Date Diagnosis Assessment Notes Treatment Notes Treatment Clinical Notes Dec, Anemia, unspecified type (ICD-10 - D64.9) [facility] Other 03-07-2023 Evaluation note* Encounter Date Diagnosis Assessment Notes Treatment Notes Treatment Clinical Notes Dec, Anemia, unspecified type (ICD-10 - D64.9) [facility] Other 01-13-2023 Evaluation + Plan note Diagnostic Tests Pending * [facility] Fish and Urine Cyto ([facility]) 11/02/22 [facility] 08-15-2022 Evaluation + Plan note Diagnostic Tests Pending * [facility]ro[facility]ion Fish and Urine Cyto ([facility]) 06/04/22 [facility] 05-13-2022 Evaluation + Plan note Diagnostic Tests Pending * [facility]ro[facility]ion Fish and Urine Cyto ([facility]) 03/02/22 [facility] 03-21-2022 Evaluation + Plan note Diagnostic Tests Pending * [facility]ro[facility] Fish and Urine Cyto ([facility]) 01/08/22 [facility] discharge summary Author Kiki Motta [facility] April 23, 2023 11:20am Note Date/Time April 23, 2023 11:20 am [facility] [address] [place] [address] Discharge Summary Signed Patient: Kennedy Kong MR#: [id number] : 1935 Acct:[id number] Age/Sex: 87 / M Adm Date: 3 Loc: Room: [address] [place] [address]: Kiki Motta MD Copies to: [...] discharge: 04/23/23 03:41: Troponin I High Sens 67141.2 H* 04/23/23 03:41: PHA Creatinine Clear 55.30, [...] % (Auto) 73.2, Lymph % (Auto) 10.5, Callaway % (Auto) 14.1, Eos % (Auto) 1.5, Baso % (Auto) 0.7, Nucleat RBC Rel Count 0.1, Neut # (Auto) 5.9, Lymph # (Auto) 0.9 L, Callaway # (Auto) 1.1 H, Eos # (Auto) 0.1, Baso # (Auto) 0.1 04/22/23 23:35: Troponin I High Sens 59228.0 H* 04/22/23 20:04: Troponin I High Sens 83516.2 H* 04/22/23 17:07: Troponin I High Sens 30793.7 H* 04/22/23 14:25: Troponin I High Sens 39199.8 H* Exam Physical Exam Vital Signs: Temp [...] doctor or pharmacist, without first calling the pot firer who implanted the stent. If you require [...] weight lifting, stair steppers, etc. until the pot firer approves these activities. Check with the pot firer on your first follow-up visit. CALL YOUR PHYSICIAN at [phone]: -If bleeding should occur from the catheter insertion site- apply pressure to the site then immediately call us. -Report any fever, redness, drainage, increased swelling, or firmness at the catheter insertion site. Some bruising or slight swelling may be present at the time of discharge. -Should arm or leg become cold, numb, white, or blue, contact the pot firer immediately. -IF you should experience episodes of [...] is recommended. Please call Central Scheduling at [phone] to schedule your appointment.] The attending pot firer or [facility] nurse clinician should provide you with specific instructions regarding activity, diet, medications, and further follow up for you. Follow the medication instructions provided on your discharge. If the dosages and instructions on this sheet differ from the dosage and instructions on the bottle, follow the instructions on the bottle. [facility] is not responsible for incorrect prescription [...] signed by Kiki Motta MD> 04/23/[address] [facility] Work Phone: Evaluation + Plan note Future Appointments Appointment Date:12/10/2023 09:00:00 AM Scheduled Provider: Location:[facility] Appointment Type:URO Nurse Visit Appointment Date:12/16/2023 09:15:00 AM Scheduled Provider:Kylie DIETRICH MD Location:[facility] Appointment Type:URO [facility] [email or web address] Other Evaluation note* Diagnosis Irregular bowel habits- Primary Other specified disorder of intestines documented in this encounter [facility] Diagnosis Onset Date Resolution Status Colon cancer acute Essential hypertension acute NSTEMI (non-ST elevated myocardial infarction) acute [facility] Work Phone: Evaluation note* Diagnosis Small bowel obstruction- Primary Unspecified intestinal obstruction Abdominal pain, generalized [facility] assessment information available [facility] Work Phone: Evaluation note* Diagnosis Atherosclerosis of chipewwa coronary artery, unspecified whether angina present, unspecified whether chipewwa or transplanted heart 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 Non-ST elevation myocardial infarction (NSTEMI) (CMS/HCC) Acute myocardial infarction, subendocardial infarction, episode of care unspecified Hyperlipidemia, unspecified hyperlipidemia type History of colon cancer Personal history of malignant neoplasm of large intestine Never smoked any substance Malignant neoplasm of urinary bladder, unspecified site (CMS/HCC) documented in this encounter [facility] Work Phone: History general Narrative - [...] History Cystoscopy 12/2022 Hospitalization History see above [facility] Other Hismhgm general Narrative - Reported* Type Description Date [...] the LCx 04/2023 Hospitalization History see above [facility] Other Hislawy general Narrative - Reported* Type Description Date [...] the LCx 04/2023 Hospitalization History see above [facility] Other Hospital course Narrative No data available for this section [facility] Discharge instructions No data available for this section [facility] Discharge instructions Additional Instructions DISCHARGE INSTRUCTIONS [...] doctor or pharmacist, without first calling the pot firer who implanted the stent. If you require [...] weight lifting, stair steppers, etc. until the pot firer approves these activities. Check with the pot firer on your first follow-up visit. CALL YOUR PHYSICIAN at [phone]: -If bleeding should occur from the catheter insertion site- apply pressure to the site then immediately call us. -Report any fever, redness, drainage, increased swelling, or firmness at the catheter insertion site. Some bruising or slight swelling may be present at the time of discharge. -Should arm or leg become cold, numb, white, or blue, contact the pot firer immediately. -IF you should experience episodes of [...] is recommended. Please call Central Scheduling at [phone] to schedule your appointment.] The attending pot firer or [facility] nurse clinician should provide you with specific instructions regarding activity, diet, medications, and further follow up for you. Follow the medication instructions provided on your discharge. If the dosages and instructions on this sheet differ from the dosage and instructions on the bottle, follow the instructions on the bottle. [facility] is not responsible for incorrect prescription information provided by the patient during their visit. Do not stop your medications without consulting your health care provider. Please take the list with you to your next doctor's appointment.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 [address] [place] [phone] Referral ID Status Reason Start Date Expiration Date V isits Requested Visits Authorized [id number] New Request 10/10/2023 11/03/2024 1 1 [facility] Consultation (Routine) - Authorized Specialty Diagnoses / Procedures Referred By Contac t Referred To Contact Cardiology Diagnoses Atherosclerosis of chipewwa coronary artery, unspecified whether angina present, unspecified whether chipewwa or transplanted heart Stented coronary artery Non-ST elevation myocardial infarction (NSTEMI) ([facility]) Procedures Follow Up In Cardiology Adriel Morgan DO [address] [facility], [address] [address] Adriel Morgan DO [facility] [facility], [address] [place] [address] Referral ID Status Reason Start Date Expiration Date V isits Requested Visits Authorized [id number] Authorized 11/20/2023 11/19/2024 1 1 [facility] Work Phone: Reason for visit Narrative* Auth/Cert Specialty Diagnoses / Procedures Referred By Contac t Referred To Contact Diagnoses Bowel Obstruction Raulito Camacho MD [address] [place] [address] [facility] [address] [place] [address] Referral ID Status Reason Start Date Expiration Date Visits Re quested Visits Authorized [id number] 1 1 [facility] Summary Purpose Family History No Family History [...] 06 9:25am Procedure Findings Note MR#: [id number] [facility] Pt. Name: Kennedy Kong Surgery Date: [...] (more content not included)... Note MR#: [id number] [facility] Pt. Name: Kennedy Kong Surgery Date: 04/16/2019 Room #: Z0 Date of : 1935 PROCEDURE NOTE ATTENDING: Gabriel Perez M.D. IN HOME SALES REPRESENTATIVE: Marilee Jiménez M.D. PROCEDURE: Colonoscopy with polypectomy [...] gentleman who returns following recent non-ST elevation [place] due to occluded obtuse marginal branch with primary revascularization with drug-eluting stent and is doing well. He has mild LV dysfunction, No significant coronary disease, ejection fraction of 45%. 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, his daily activities include lifting up [...] section and content) DATE CREATED AUTHOR 04/16/2018 [facility] DATE CREATED AUTHOR AUTHOR'S ORGANIZ ATION 04/25/2019 [facility] DATE CREATED AUTHOR AUTHOR'S ORGANIZ ATION 11/04/2019 [facility] DATE CREATED AUTHOR AUTHOR'S ORGANIZ ATION 12/28/2022 [facility] DATE CREATED AUTHOR AUTHOR'S ORGANIZ ATION 01/23/2023 [facility] DATE CREATED AUTHOR AUTHOR'S ORGANIZ ATION 01/23/2023 [facility] DATE CREATED AUTHOR AUTHOR'S ORGANIZ ATION 05/03/2023 [employer] DATE CREATED AUTHOR AUTHOR'S ORGANIZ ATION 06/27/2023 [facility] DATE CREATED AUTHOR AUTHOR'S ORGANIZ ATION 09/17/2023 [facility] DATE CREATED AUTHOR AUTHOR'S ORGANIZ ATION 10/27/2023 [facility] DATE CREATED AUTHOR AUTHOR'S ORGANIZ ATION 11/24/2023 [facility] DATE CREATED AUTHOR AUTHOR'S ORGANIZ ATION 12/11/2023 [facility] Team (unrecognized sect ion and content) Telegraph Repeater Technician Relationship Specialty Start Date End Date Nestor [...] MD Other Provider Active Misty Rothman , [facility] Other Provider Active Endy Arevalo MD Other Provider Active Lucio Dillon MD Other Provider Active Ko Morgan DO Other Provider Active Christy Love APRN Other Provider Active Hannah Abraham MD Other Provider Active Telegraph Repeater Technician Relationship Specialty Start Date End Date Jimmy Estrella MD [address] [place] [id number] PCP - General Family Medicine 11/03/22 Team Status: Inactive Member Role Status Dates Nestor Estrella DO Primary Care Provider Active Zofia Gates MD Attending Provider Active Telegraph Repeater Technician Relationship Specialty Start Date End Date Nestor Estrella DO [address] [place] [address] PCP - General Internal Medicine 11/20/23 Telegraph Repeater Technician Relationship Specialty Start Date End Date Jimmy Estrella MD [address] [place] [id number] PCP - General Family Medicine 11/03/22 REASON FOR VISIT (unrecogniz ed section and content) Opinion Reason Comments Follow-up 6 months 4 month Follow upGI REFERRAL CONSULT Specialty Diagnoses / Procedures Referred By Mart hale Referred To Contact Diagnoses SBO [facility] [address] [place] [address] [facility] [address] [place] [address] Referral ID Status Reason Start Date Expiration Date Visits Re quested Visits Authorized [id number] 1 1 PATIENT IS HERE AT THE [...] or prosecute any alcohol or drug abuse patient.[facility] Scheduled Active and Recently Administ ered Medications [...] BE BASED ON THE PRIMARY CLINICAL RECORDS. [employer] provides no warranty or guarantee of the accuracy or completeness of information in this document.
--- NOTE | 2023-12-17 06:49 | CT_ITS ---
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 TECHNIQUE: Following intravenous administration of 99 cc of Omnipaque 300, axial soft tissue windows of the abdomen and pelvis were performed with coronal and sagittal reformats. Findings: Minimal bilateral lower lobe dependent atelectasis. ABDOMEN: There are hepatic and splenic calcifications likely relating to prior granulomatous disease. Stable hepatic cysts. The gallbladder, and adrenal glands are unremarkable. Stable subcentimeter pancreatic cystic lesion within the proximal tail. Mild nonspecific bilateral perinephric fat stranding. No renal stones. There is stable mild bilateral collecting system dilatation. In addition again seen are regions of mild right ureteral dilatation. No evidence of an ureteral stone. There are postsurgical changes involving the sigmoid colon. Otherwise, the bowel is unremarkable without evidence of wall thickening or obstruction. The aorta is normal caliber. Mild atherosclerotic disease. No enlarged abdominal lymph nodes or free abdominal fluid. Pelvis: There is an enhancing urothelial lesion near the right ureterovesicular junction measuring approximately 3.7 cm. No bladder calculi. Postsurgical changes consistent with tear. No enlarged pelvic lymph nodes or free pelvic fluid. Tiny fat-containing left inguinal hernia. No aggressive sclerotic or lytic osseous lesions. Mild dextroconvex scoliosis with multilevel degenerative spondylosis. CT/CT abdomen pelvis w con IMPRESSION: 1. Enhancing urothelial bladder lesion concerning for malignancy. If indicated, suggest cystoscopy for further evaluation. 2. No enlarged abdominal or pelvic lymph nodes. 3. Other nonemergent findings, as described above. Electronically authenticated by: RONALDO LO Date: 12/17/2023 09:46
[2023-12-17 06:58] LABS: Estimated GFR (African America >60 (>=60); Estimated GFR (Non-African Ame >60 (>=60)
== END 2023-12-17 06:40 | disposition home or self-care (01) ==
LOC: LAB 06:39
PROVIDERS: PCP Internal Medicine; Visit Provider Urology
DX: C67.9 Malignant neoplasm of bladder, unspecified (principal); R31.9 Hematuria, unspecified
CPT/HCPCS: 36415; 74177; 82565; 84520; Q9967

== ENCOUNTER 2024-02-18 10:37 | Outpatient (OUT) | payer MEDICARE, SELFPAY ==
--- NOTE | 2024-02-18 10:43 | US_ITS ---
[address] [address] Patient Name: JANIE KONG MRN: [id number] date: 1935 Sex: M Assigned Patient Location: US Current Patient Location: US Accession/Order Number: [id number] Exam Date: 02/18/2024 11:10 Report Date: 02/18/2024 12:10 At the request of: SCOT GRAJEDA Procedure: US venous doppler LE BI EXAM: US venous doppler LE BI HISTORY: Malignant Neoplasm Of Trigone Of Urinary Bladder, Leg Edema COMPARISON: None. TECHNIQUE: A scale, color and Doppler FINDINGS: Region: Bilateral legs Thrombus: None Flow: Normal Augmentation: Normal Compressibility: Normal Other: Mild edema in the left lower leg US/US venous doppler LE BI IMPRESSION: No deep or superficial vein thrombus identified in the legs Electronically authenticated by: AUBREY SMITH Date: 02/18/2024 12:10
== END 2024-02-18 10:38 | disposition home or self-care (01) ==
LOC: US 10:39
PROVIDERS: PCP Internal Medicine; Visit Provider Radiology Radiation Oncology
DX: C67.0 Malignant neoplasm of trigone of bladder (principal); R60.0 Localized edema
CPT/HCPCS: 93970

== ENCOUNTER 2024-05-25 07:19 | Outpatient (OUT) | payer MEDICARE, SELFPAY ==
--- OUTSIDE RECORDS SUMMARY | 2024-05-25 07:30 | XMS_ITS | CCD ---
Author Organization [facility] Care Team Providers Care [employer] Professional Name Role Phone ADRIEL RIOS Unavailable Unavailable NESTOR ESTRELLA Unavailable Unavailable ADRIEL RIOS Unavailable Unavailable NESTOR ESTRELLA Unavailable Unavailable NESTOR ESTRELLA Primary Care Physician JIMMY ESTRELLA Primary Care Unavailable DAVID MCGREGOR Referring Unavailable LUKE LAN Attending Unavailable HANG OHARA Referring Unavailable JIMMY ESTRELLA Primary Care Unavailable RAULITO CAMACHO Admitting Unavailable CONSULT, SURGERY - GENERAL (EMERGENT) Consulting Unavailable Reid Ann Unavailable Nestor Estrella Unavailable Nestor Estrella DO Primary Care Provider SAMEER, DR BAEZ Consulting Unavailable BALL, DR BAEZ Attending Unavailable BALL, DR BAEZ Admitting Unavailable BALL, DR BAEZ Primary Care Unavailable BALL, DR BAEZ Consulting Unavailable SAMEER, DR BAEZ Primary Care Unavailable BALL, DR BAEZ Attending Unavailable BALL, DR BAEZ Admitting Unavailable WEST, DR AUBREY Barclay Consulting Unavailable DIETRICH ., [...] ., DR ESPINAL Attending Unavailable REQUEST, DR LUU LISTED Primary Care Unavaila ble DIETRICH ., [...] Other Provider MD Adriel Lay Other Provider [phone] JUSTIN Gould Other Provider Unavailable MD Peyton Norman Other Provider Lorna [facility] Misty Soriano Other Provider MD Endy Arevalo Other Provider MD Lucio Dillon Other Provider DO Ko Morgan Other Provider MIGUEL White Other Provider MD Hannah Abraham Other Provider [phone] Nestor Estrella Unavailable Unavailable Unavailable Eddie, Dr. Adriel Pierre Attending Raegan Estrella, Dr. Nestor Lovelace [facility] Marcella Estrella, Dr. Nestor Lovelace [facility] Marcella Morgan, Dr. Adriel Pierre Referring Raegan Morgan, Dr. Adreil Pierre Attending Raegan Estrella, Dr. Nestor Lvoelace [facility] Marcella Morgan, Dr. Adriel Pierre Attending Raegan Estrella, Dr. Nestor Lovelace [facility] Marcella weeks Asaad, Imad Unavailable Jimmy Estrella MD Primary Care Provider DO Nestor Estrella Primary Care Provider MD Zofia Gates Attending Provider [phone] Nestor Estrella [facility] Unavailable Asaad, Imad Admitting Unavailable Anuragad Imad Attending Unavailable Nestor Estrella Primary Care Unavailable Alahmad, Alaa Admitting Unavailable Alahmad, Alaa Attending Unavailable Grace West Consulting Unavailable Chan Tarek Consulting Unavailable Kimberly Skinner Consulting Unavailable Adriel Lay Consulting Unavail able Rashida Gould Consulting Unavailable Peyton Norman Consulting Unavailable Misty Rothman Consulting Unavailable Endy Arevalo Consulting Unavailab Lucio Cheung Consulting Unavailab Ko Piper Consulting Unavailable Christy White Consulting Unavailable Hannah Abraham Consulting Unavailable Nestor Estrella DO Primary Care Provider Deann CHOI, Darryl Unavailable Suzanne Grajeda MD Unavailable [phone] Toñito CONTEH, Shalonda Unavailable Ced ANDERSON, Sherron Unavailable Ignacio GRIGGS, Jana Unavailable Unavailable Ball DO, Nestor E Primary Care Provider BALL, NESTOR E Primary Care Unavailable ENGELER, G ANDRY Attending Unavailable BALL, NESTOR E Primary Care Unavailable ENGELER, G ANDRY Attending Unavailable BALL, NESTOR E Primary Care Unavailable ENGELER, G ANDRY Attending Unavailable BALL, NESTOR E Primary Care Unavailable BALL, NESTOR E Primary Care Unavailable BALL, NESTOR E Primary Care Unavailable BALL, NESTOR E Primary Care Unavailable BALL, NESTOR E Primary Care Unavailable BALL, NESTOR E Primary Care Unavailable ABHYANKAR, DARRYL Attending Unavailable JASMINE JANSEN Attending Unavailable BALL, NESTOR E Primary Care Unavailable BALL, NESTOR E Primary Care Unavailable ENGELER, G ANDRY Attending Unavailable BALL, NESTOR E Primary Care Unavailable BALL, NESTOR E Primary Care Unavailable BALL, NESTOR E Primary Care Unavailable ABHYANKAR, DARRYL Attending Unavailable ORALIAELERSuzanne Referring Unavailable BALL, NESTOR E Primary Care Unavailable ENGELER, G ANDRY Attending Unavailable BALL, NESTOR E Primary Care Unavailable ABHYANKAR, DARRYL Attending Unavailable ABHYANKAR, DARRYL Referring Unavailable BALL, NESTOR E Primary Care Unavailable BALL, NESTOR E Primary Care Unavailable ENGELER, G ANDRY Referring Unavailable BALL, NESTOR E Primary Care Unavailable BALL, NESTOR E Primary Care Unavailable BALL, NESTOR E Primary Care Unavailable BALL, NESTOR E Primary Care Unavailable BALL, NESTOR E Primary Care Unavailable BALL, NESTOR E Primary Care Unavailable BALL, NESTOR E Primary Care Unavailable BALL, NESTOR E Primary Care Unavailable BALL, NESTOR E Primary Care Unavailable KYLIE DIETRICH Referring Unavailable BALL, NESTOR E Primary Care Unavailable ENGELER, G ANDRY Attending Unavailable BALL, NESTOR E Primary Care Unavailable BALL, NESTOR E Primary Care Unavailable BALL, NESTOR E Primary Care Unavailable SHALONDA CHERY Attending Unavailable BALL, NESTOR E Primary Care Unavailable BALL, NESTOR E Primary Care Unavailable BALL, NESTOR E Primary Care Unavailable BALL, NESTOR E Primary Care Unavailable BALL, NESTOR E Primary Care Unavailable BALL, NESTOR E Primary Care Unavailable ENGELER, G ANDRY Attending Unavailable BALL, NESTOR E Primary Care Unavailable BALL, NESTOR E Primary Care Unavailable BALL, NESTOR E Primary Care Unavailable BALL, NESTOR E Primary Care Unavailable BALL, NESTOR E Primary Care Unavailable ENGELER, G ANDRY Attending Unavailable BALL, NESTOR E Primary Care Unavailable BALL, NESTOR E Primary Care Unavailable SHALONDA CHERY Attending Unavailable BALL, NESTOR E Primary Care Unavailable BALL, NESTOR E Primary Care Unavailable BALL, NESTOR E Primary Care Unavailable ENGELER, G ANDRY Attending Unavailable BALL, NESTOR E Primary Care Unavailable BALL, NESTOR E Primary Care Unavailable BALL, NESTOR E Primary Care Unavailable ENGELER, G ANDRY Attending Unavailable BALL, NESTOR E Primary Care Unavailable ENGELER G ANDRY Referring Unavailable BALL, NESTOR E Primary Care Unavailable BALL, NESTOR E Primary Care Unavailable ENGELER G ANDRY Attending Unavailable BALL, NESTOR E Primary Care Unavailable BALL, NESTOR E Primary Care Unavailable BALL, NESTOR E Primary Care Unavailable BALL, NESTOR E Primary Care Unavailable BALL, NESTOR E Primary Care Unavailable ABHYANKAR, DARRYL Attending Unavailable BALL, NESTOR E Primary Care Unavailable BALL, NESTOR E Primary Care Unavailable ENGELER G ANDRY Attending Unavailable BALL, NESTOR E Primary Care Unavailable ENGELER, G ANDRY Attending Unavailable BALL, NESTOR E Primary Care Unavailable BALL, NESTOR E Primary Care Unavailable BALL, NESTOR E Primary Care Unavailable BALL, NESTOR E Primary Care Unavailable ENGELER G ANDRY Attending Unavailable BALL, NESTOR E Primary Care Unavailable BALL, NESTOR E Primary Care Unavailable ABHYANKAR, DARRYL Referring Unavailable BALL, NESTOR E Primary Care Unavailable BALL, NESTOR E Primary Care Unavailable ENGELER G ANDRY Referring Unavailable BALL, NESTOR E Primary Care Unavailable DIETRICH, Kylie R Attending Unavailable DIETRICH, Kylie R Referring Unavailable DIETRICH, Kylie R Admitting Unavailable Orzech, Sridevi X Admitting Unavailable Orzech, Sridevi X Attending Unavailable DIETRICH, Kylie R Attending Unavailable DIETRICH, Kylie R Admitting Unavailable DIETRICH, Kylie R Attending Unavailable DIETRICH, Kylie R Attending Unavailable DIETRICH, Kylie R Attending Unavailable DIETRICH, Kylie R Attending Unavailable DIETRICH, Kylie R Attending Unavailable DIETRICH, Kylie R Attending Unavailable DIETRICH, Kylie R Attending Unavailable DIETRICH, Kylie R Attending Unavailable DIETRICH, Kylie R Attending Unavailable DIETRICH, Kylie R Attending Unavailable Orzech, Sridevi X Attending Unavailable Orzech, Sridevi X Referring Unavailable DIETRICH, Kylie R Referring Unavailable DIETRICH, Kylie R Admitting Unavailable DIETRICH, Kylie R Attending Unavailable DIETRICH, Kylie R Attending Unavailable DIETRICH, Kylie R Attending Unavailable ADRIEL MORGAN Attending Unavailable NESTOR ESTRELAL Primary Care Unavailable ADRIEL MORGAN Attending Unavailable NESTOR ESTRELLA Primary Care Unavailable ADRIEL MORGAN Referring Unavailable Allergies Allergy Classification Reported Allergen(s) Allergy Type Date of Onset Reaction(s) Facility Penicillins (antibiotic) (1 source) Amoxicillin Drug Allergy 04-28-2013 Other: See Comments [facility] (20 sources) Amoxicillin; Translations: [AMOXICILLIN] Drug Allergy 04-28-2013 Other: See Comments [facility] Medications Current Medications Medication Drug Class(es) Dates Sig (Normalized) Sig (Original) aspirin 81 mg chewable tablet (20 sources) Platelet Aggregation Inhibitor, Nonsteroidal Anti-inflammatory Drug Start: 11-20-2023 End: 11-19-2024 CARROLL CHEWABLE ASPIRIN 81 mg chewable tablet CHEW 1 TABLET ONCE DAILY 0 11/20/2023 Active Start: 10-10-2023 End: 10-10-2023 aspirin chewable tablet 81 m g Start: 05-07-2023 take 1 tablet by mouth once da marci Aspirin 81 81 MG 1 tablet Orally Once a day Apr, Active Start: 04-22-2023 take 81 mg by mouth once daily Aspirin Active 81 MG PO Daily 90 90 April 22, 2023 12:00am take 1 tablet by dianne every twenty-four hours Aspirin 325 MG 1 tablet Orally Once a day Not-Taking/PRN Comment on above: CHEW 1 TABLET ONCE D AILY beta prostate (14 sources) Start: 09-01-2021 beta prostate beta prostate Start Date: 09/01/21 Status: Ordered calcium carbonate 1500 mg oral tablet (4 sources) Start: 12-05-2023 take 1 tablet by mouth twice daily calcium (as carbonate) 600 mg oral tablet 600 mg = 1 tab(s), Oral, BID, Prophylaxis Start Date: 12/05/23 Status: Ordered carvedilol 6.25 mg oral tablet (20 sources) alpha-Adrenergic Myra, beta-Adrenergic Myra Start: 01-01-2024 take 12.5 mg by mouth twice daily at mealtime Carvedilol Active 12.5 MG PO Twice daily with meals January 01, 2024 1:51pm Start: 05-02-2023 take 2 tablets by mo [facility] every twelve hours Carvedilol 6.25 MG 2 tablets with food Orally Twice a day Apr, Active Start: 05-02-2023 take 1 tablet by dianne th every twelve hours Carvedilol 25 MG 1 tablet with food Orally Twice a day for 30 days Apr, Active Start: 04-22-2023 End: 01-01-2024 take 1 tablet by mouth twice daily at mealtime carvedilol (COREG) 6.25 mg tablet Take 6.25 mg by mouth two times a day with meals. 0 10/28/2023 Active Comment on above: Take 6.25 mg by mout h two times a day with meals. Catheter ([facility]) misc (20 sources) Start: 02-12-2024 Catheter ([facility]) misc Indications: Other urinary incontinence 1 Device once daily. 35 Each 0 02/12/2024 Active Start: 02-12-2024 End: 03-13-2024 Catheter ([facility] CATH) misc Indications: Other urinary incontinence 1 Device once daily. 35 Each 0 02/12/2024 03/13/2024 Active cefdinir 300 mg oral capsule (10 sources) Cephalosporin Antibacterial Start: 06-14-2020 cefdinir 300 mg Cap See Instructions, Refills(s) 0 Start Date: 06/14/20 Status: Ordered cephalexin 500 mg oral capsule (9 sources) Cephalosporin Antibacterial Start: 12-16-2023 End: 03-11-2024 take 1 capsule by mouth every twelve hours cephalexin 500 mg Cap 500 mg = 1 cap(s), Oral, q12hr, X 7 day(s), # 14 cap(s), Refills(s) 0, Pharmacy: [facility]/pharmacy #[id number], 179, cm, 12/16/23 9:50:00 EST, Height/Length Dosing, 80, kg, 12/16/23 9:50:00 EST, Weight Dosing Start Date: 03/04/24 Stop Date: 03/11/24 Status: Ordered Start: 08-19-2021 End: 04-22-2023 take 500 mg by mouth twice daily Cephalexin Discontinued 500 MG PO Twice daily 09 08August 19, 2021 12:00am April 22, 2023 11:06am ciprofloxacin 500 mg oral tablet (12 sources) Quinolone Antimicrobial Start: 02-21-2024 End: 02-28-2024 take 1 tablet by mouth twice daily ciprofloxacin HCl (CIPRO) 500 mg tablet Take 1 tablet by mouth two times a day for 7 days. 14 tablet 0 02/21/2024 02/23/2024 Discontinued (Course of therapy completed) Start: 12-07-2022 take 1 tablet by dianne th once daily Cipro 250 mg Tab 250 mg = 1 tab(s), Oral, Daily, Take 1 tablet the day before the procedure and 1 tablet after the procedure, # 6 tab(s), Refills(s) 0, [id number], cm, 09/01/21 10:42:00 EST, Height/Length Dosing, 78, kg, 09/01/21 10:42:00 EST, W... Start Date: 12/07/22 Status: Ordered Start: 10-26-2022 take 1 tablet by dianne th once daily Cipro 250 mg Tab 250 mg = 1 tab(s), Oral, Daily, Take 1 tablet the day before the procedure and 1 tablet after the procedure, # 2 tab(s), Refills(s) 0, [id number] 178, cm, 09/01/21 10:42:00 EST, Height/Length Dosing, 78, kg, 09/01/21 10:42:00 EST, W... Start Date: 10/26/22 Status: Ordered Start: 03-01-2022 take 1 tablet by dianne th once daily Cipro 500 mg Tab 500 mg = 1 tab(s), Oral, Daily, Take 1 tablet the day before the procedure and 1 tablet after the procedure, # 2 tab(s), Refills(s) 0, [id number] 178, cm, 09/01/21 10:42:00 EST, Height/Length Dosing, 78, kg, 09/01/21 10:42:00 EST, W... Start Date: 03/01/22 Status: Ordered Start: 12-07-2021 take 1 tablet by dianne th once daily Cipro 500 mg Tab 500 mg = 1 tab(s), Oral, Daily, Take 1 tablet the day before procedure and 1 tablet after the procedure, # 2 tab(s), Refills(s) 0, Pharmacy: [id number], 178, cm, 09/01/21 10:42:00 EST, Height/Length Dosing, 78, kg, 09/01/21 10:42:00 EST, We... Start Date: 12/07/21 Status: Ordered clopidogrel 75 mg oral tablet (20 sources) P2Y12 Platelet Inhibitor Start: 11-16-2023 take 1 tablet by mouth once daily clopidogrel 75 mg Tab 75 mg = 1 tab(s), Oral, Daily, Blood Thinner Start Date: 12/05/23 Status: Ordered Start: 11-16-2023 clopidogrel (P LAVIX) 75 mg tablet TAKE 8 TABLETS BY MOUTH FOR 1 DOSE ONLY,THEN TAKE 1 TABLET BY MOUTH DAILY*REPLACES BRILINTA* 0 11/16/2023 Active Start: 05-23-2023 End: 10-10-2023 take 1 tablet [...] : 23-May-2023 Active new start, replaces Brilinta Comment on above: TAKE 8 TABLETS BY MO UTH FOR 1 DOSE ONLY,THEN TAKE 1 TABLET BY MOUTH DAILY*REPLACES BRILINTA* Take 75 mg by mouth once daily. docusate sodium 100 mg oral capsule (20 sources) Start: 01-01-2024 End: 02-21-2024 take 100 mg by mouth once daily Docusate Sodium Active 100 MG PO Daily January 01, 2024 12:00am take 1 tablet by mouth once elian [...] Externally daily for 30 days Aug, Active Fish Oil-DHA-EPA 1,200-144-216 mg cap (20 sources) Fish Oil-DHA-EPA 1,200-144-216 mg cap Take by mouth once daily. 0 Active Comment on above: Take by mouth once d aily. losartan potassium 25 mg oral tablet (20 sources) Angiotensin 2 Receptor Myra Start: 4 take 1 tablet by mouth once daily losartan 25 mg Tab TAKE 1 TABLET BY MOUTH EVERY DAY Start Date: 04/20/24 Status: Ordered Start: 04-22-2023 End: 01-01-2024 take 25 mg by mouth at bedtime Losartan Discontinued 2 5 MG PO Bedtime April 22, 2023 12:00am January 01, 2024 1:52pm End: 12-31-2023 losartan potassium (LOSARTAN ORAL) Take by mouth once daily. 0 12/31/2023 Discontinued (Dosage adjustment) losartan potassi um (LOSARTAN ORAL) Take by mouth once daily. 0 Active Comment on above: Take by mouth once d aily. lubiprostone 0.024 mg oral capsule (1 source) Chloride Channel Activator Start: 04-20-20 take 1 capsule by mouth twice daily lubiprostone 24 mcg Cap TAKE 1 CAPSULE BY MOUTH TWICE A DAY FOR 7 DAYS Start Date: 04/20/24 Status: Ordered 24 hr mirabegron 50 mg extended release oral tablet (1 source) beta3-Adrenergic Agonist Start: 04-20-20 take 1 tablet by mouth once daily Myrbetriq 50 mg oral tablet, extended release 50 mg = 1 tab(s), Oral, Daily, # 30 tab(s), Refills(s) 11, Pharmacy: [facility]/pharmacy #[id number], 179, cm, 04/20/24 13:46:00 EDT, Height/Length Dosing, 83.7, kg, 04/20/24 13:46:00 EDT, Weight Dosing Start Date: 04/20/24 Status: Ordered nitrofurantoin, macrocrystals 25 mg / nitrofurantoin, monohydrate 75 mg oral capsule (5 sources) Nitrofuran Antibacterial Start: 02-23-20 End: 03-01-20 take 1 capsule by mouth twice daily nitrofurantoin monohydrate and macrocrystal (MACROBID) 100 mg capsule Take 1 capsule by mouth two times a day for 7 days. 14 capsule 0 02/23/2024 03/01/2024 Active ondansetron 8 mg oral tablet (20 sources) Serotonin-3 Receptor Antagonist Start: 04-20-20 ondansetron 8 mg Tab Refills(s) 0 Start Date: 04/20/24 Status: Ordered Start: 01-13-2024 End: 03-25-2024 take 1 tablet by mouth every eight hours as needed ondansetron (ZOFRAN) 8 mg tablet Take 1 tablet by mouth every 8 hours as needed for nausea/vomiting. 90 tablet 1 01/13/2024 03/25/2024 Discontinued (Discontinued by Patient) Start: 08-19-2021 End: 04-22-2023 take 4 mg by mouth every eight hours Ondansetron Discontinued 4 MG PO Q8H 9 August 19, 2021 12:00am April 22, 2023 11:06am Comment on above: Take 1 tablet by dianne th every 8 hours as needed for nausea/vomiting. rosuvastatin calcium 40 mg oral tablet (20 sources) HMG-CoA Reductase Inhibitor Start: 04-20-20 take 1 tablet by mouth once daily rosuvastatin 40 mg Tab TAKE 1 TABLET BY MOUTH EVERY DAY Start Date: 04/20/24 Status: Ordered Start: 12-30-2023 take 1 tablet by dianne th once daily rosuvastatin (CRESTOR) 40 mg tablet Take 40 mg by mouth once daily. 0 12/30/2023 Active Start: 10-10-2023 End: 10-10-2023 Rosuvastatin (CRESTOR) table t 40 mg Start: 06-07-2023 take 1 tablet by dianne th every twenty-four hours Rosuvastatin Calcium 40 MG 1 tablet Orally Once a day for 30 days May, Active Comment on above: Take 40 mg by mouth once daily. tamsulosin hydrochloride 0.4 mg oral capsule (20 sources) alpha-Adrenergic Myra Start: 01-25-2024 take 1 capsule by mouth once daily in the evening Tamsulosin Active 0 .ROUTE .COMPLEX 90 January 25, 2024 12:05pm TAKE 1 CAPSULE BY MOUTH EVERY DAY IN THE EVENING FOR 30 DAYS Start: 11-18-2020 End: 01-25-2024 take 1 capsule by mouth once daily Flomax 0.4 mg Cap 0.4 mg = 1 cap(s), Oral, Daily, # 30 cap(s), Refills(s) 11, Pharmacy: [id number], 180.3, cm, 11/14/20 11:02:00 EST, Height/Length Dosing, 83.6, kg, 08/08/20 10:49:00 EDT, Weight Dosing Start Date: 11/18/20 Status: Ordered Comment on above: Take 0.4 mg by mouth . Take 0.4 mg by mouth once daily. triamcinolone acetonide 1 mg/ml topical cream (20 [...] 30 mL atorvastatin 80 mg oral tablet (11 sources) HMG-CoA Reductase Inhibitor Start: 04-22-2023 End: 01-01-2024 take 80 mg by mouth once daily in the evening Atorvastatin Discontinued 80 MG PO Every evening April 22, 2023 12:00am January 01, 2024 1:52pm Calcium (20 sources) Phosphate Binder, Calcium Calcium 150 MG as directed Orally Not-Taking/PRN Calcium 150 MG a s directed Orally Not-Taking cefTRIAXone (20 sources) Cephalosporin Antibacterial Start: 10-24-2014 Rocephin 500 mg Oct, 1 grm CISplatin 40.6 mg in NaCl 0.9% 1,090.6 mL (PLATINOL) (2 sources) Start: 02-19-2024 End: 02-19-2024 CISplatin 40.6 mg in NaCl 0.9% 1,090.6 mL (PLATINOL) Start: 02-12-2024 End: 02-12-2024 CISplatin 40.6 mg in NaCl 0. 9% 1,090.6 mL (PLATINOL) dexAMETHasone 10 mg in NaCl 0.9% 50 mL (DECADRON) (2 sources) Start: 02-19-2024 End: 02-19-2024 dexAMETHasone 10 mg in NaCl 0.9% 50 mL (DECADRON) Start: 02-12-2024 End: 02-12-2024 dexAMETHasone 10 mg in NaCl 0.9% 50 mL (DECADRON) fosaprepitant 150 mg in NaCl 0.9% 250 mL (EMEND) (2 sources) Start: 02-19-2024 End: 02-19-2024 fosaprepitant 150 mg in NaCl 0.9% 250 mL (EMEND) Start: 02-12-2024 End: 02-12-2024 fosaprepitant 150 mg in NaCl 0.9% 250 mL (EMEND) 4 ml furosemide 10 mg/ml injection (2 sources) Loop Diuretic Start: 02-19-2024 End: 02-19-2024 furosemide 10 mg injection (LASIX) Start: 02-12-2024 End: 02-12-2024 furosemide 10 mg injection ( LASIX) ipratropium bromide 0.042 mg/actuat metered dose nasal spray (20 sources) Anticholinergic take 2 spray(s) nasal route three times daily as needed Ipratropium [place] 0.06 % 2 sprays in each nostril Nasally Three times a day Not-Taking/PRN take 2 spray(s) nasa l route three times daily Ipratropium [place] 0.06 % 2 sprays in e ach nostril Nasally Three times a day Not-Taking levoFLOXacin 500 mg oral tablet (10 sources) Quinolone Antimicrobial Start: 01-31-2024 End: 02-17-2024 take 1 tablet by mouth once levoFLOXacin (LEVAQUIN) 500 mg tablet Take 1 tablet by mouth every afternoon. 0 01/31/2024 02/17/2024 Discontinued (Course of therapy completed) Comment on above: Take 1 tablet by dianne th every afternoon. Loperamide (20 sources) Opioid Agonist End: 03-25-2024 loperamide HCl (IMODIUM A-D ORAL) Take by mouth as needed. 0 03/25/2024 Discontinued (Discontinued by Patient) loperamide HCl ( IMODIUM A-D ORAL) Take by mouth as needed. 0 Active loperamide HCl ( IMODIUM A-D ORAL) Take by mouth. 0 Active Comment on above: Take by mouth. 50 ml magnesium sulfate 40 mg/ml injection (2 sources) Start: 02-19-2024 End: 02-19-2024 magnesium sulfate iv piggyback in sterile water 2 g 50 mL Start: 02-12-2024 End: 02-12-2024 magnesium sulfate iv piggyba ck in sterile water 2 g 50 mL nitroglycerin 0.4 mg sublingual tablet (4 sources) Nitrate Vasodilator Start: 04-22-2023 End: 01-01-2024 Nitroglycerin Discontinued 0.4 MG SUBLINGUAL Q5M April 22, 2023 12:00am January 01, 2024 1:52pm do not exceed 3 doses per episode 24 hr oxybutynin chloride 10 mg extended release oral tablet (20 sources) Cholinergic Muscarinic Antagonist take 1 tablet by mouth every twenty-four hours oxyBUTYnin Chloride ER 10 MG 1 tablet Orally Once a day Not-Taking/PRN 5 ml palonosetron 0.05 mg/ml injection (2 sources) Serotonin-3 Receptor Antagonist Start: 02-19-2024 End: 02-19-2024 palonosetron 0.25 mg injection (ALOXI) Start: 02-12-2024 End: 02-12-2024 palonosetron 0.25 mg injecti on (ALOXI) potassium chloride 20 meq extended release oral tablet (4 sources) Start: 12-05-2023 take 1 tablet by mouth twice daily potassium chloride 20 mEq ER Tab 20 mEq = 1 tab(s), Oral, BID, Prophylaxis Start Date: 12/05/23 Status: Ordered prochlorperazine 10 mg oral tablet (20 sources) Phenothiazine Start: 01-13-2024 End: 03-25-2024 take 1 tablet by mouth every six hours as needed prochlorperazine (COMPAZINE) 10 mg tablet Take 1 tablet by mouth every 6 hours as needed. 100 tablet 1 01/13/2024 03/25/2024 Discontinued (Discontinued by Patient) Comment on above: Take 1 tablet by dianne th every 6 hours as needed. Psyllium (20 sources) Psyllium Not-Taking/PRN Psyllium Not-Bobby ing Psyllium Active 1000 ml sodium chloride 9 mg /ml injection (4 sources) Start: 02-19-2024 End: 02-19-2024 NaCl 0.9% iv bolus 1,000 mL Start: 02-12-2024 End: 02-12-2024 NaCl 0.9% iv bolus 1,000 mL terbinafine 250 mg oral tablet (8 sources) Allylamine Antifungal Start: 04-12-2023 Terbinaf ine HCl 1 % 1 application Externally twice daily for 14 days Mar, Active Start: 04-12-2023 End: 01-01-2024 take 250 mg by mouth at bedtime Terbinafine Hcl Discon tinued 250 MG PO Bedtime April 22, 2023 12:00am January 01, 2024 1:53pm ticagrelor 90 mg oral tablet (14 sources) Start: 05-20-2023 take 1 tablet by mouth every twelve hours Brilinta (ticagrelor) 90 mg oral tablet 60 EA, TAKE 1 TABLET BY MOUTH EVERY 12 HOURS FOR 30 DAYS, Refills(s) 0 Start Date: 05/20/23 Status: Ordered Start: 04-22-2023 End: 01-01-2024 take 1 tablet by mouth twice daily Ticagrelor (Brilinta) 90 mg Tablet Discontinued 90 MG PO Twice daily 180 90 April 22, 2023 12:00am January 01, 2024 1:53pm vitamin b12 0.1 mg oral tablet (2 sources) Vitamin B12 End: 12-31-2023 take 2 tablets by mouth once daily cyanocobalamin (VITAMIN B-12) 100 mcg tab Take 200 mcg by mouth once daily. 0 12/31/2023 Discontinued (Discontinued by Patient) Comment on above: Take 200 mcg by [...] Date Documented Date Episodic/Chronic Acute myocardial infarction (20 sources) Myocardial infarction; Translations: [Non-ST elevation (NSTEMI) [...] neoplasm] Onset: 11-12-19 Episodic Cancer of colon (20 sources) Malignant tumor of colon; Translations: [Malignant neoplasm of colon, unspecified site] Onset: 12-17-19 13 04-22-2023 Chronic Cardiac dysrhythmias (20 sources) Bradycardia; Translations: [Bradycardia, unspecified] Episodic Chronic kidney disease (16 sources) Chronic kidney disease; Translations: [Chronic kidney disease, unspecified] Onset: 01-10-20 23 03-28-2020 Chronic Chronic ulcer of skin (20 sources) [...] [Coronary atherosclerosis of unspecified type of vessel, cachil dehe or graft] Onset: 06-25-20 Chronic Deficiency and other anemia (20 sources) Chronic [...] 09-28-20 Chronic Genitourinary symptoms and ill-defined conditions (20 sources) Urinary incontinence; Translations: [Unspecified urinary incontinence] Onset: 11-05-19 23 03-28-2020 Chronic Genitourinary symptoms and ill-defined conditions (20 sources) Ravindra hematuria; Translations: [Gross hematuria] Onset: 03-08-20 22 03-28-2020 Episodic Hyperplasia of prostate (20 sources) Benign prostatic hypertrophy with outflow obstruction; Translations: [Nocturia due to benign prostatic hypertrophy] Onset: 01-10-20 23 09-26-2020 Chronic Immunizations and screening for infectious disease (1 source) Encounter for immunization; Translations: [ENCOUNTER FOR IMMUNIZATION] Onset: 01-23-20 Episodic Mycoses (2 sources) Tinea pedis Episodic Neoplasms of unspecified nature or uncertain behavior (15 sources) Neoplasm of bladder 04-27-2020 Episodic Open wounds of extremities (4 sources) Laceration without foreign body of right hand, initial encounter; Translations: [LACERATION W/O FB RT HAND INITIAL] Onset: 01-19-20 Episodic Osteoarthritis (16 sources) Osteoarthritis of right hip joint; Translations: [Unspecified osteoarthritis, unspecified site] Onset: 01-10-2003-28-2020 Chronic Other aftercare (2 sources) Other mcfp (current) drug therapy; Translations: [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] Onset: 01-23-20 Episodic Other aftercare (2 sources) Drug therapy finding; Translations: [Other mcfp (current) drug therapy] 02-19-2024 Episodic Other and ill-defined heart disease (4 [...] Episodic Other diseases of kidney and ureters (15 sources) Cyst of kidney 03-28-2020 Episodic Other diseases of veins and lymphatics (20 sources) Peripheral venous insufficiency; Translations: [Venous insufficiency (chronic) (peripheral)] 03-28-2020 Episodic Other diseases of veins and lymphatics (6 sources) Venous insufficiency (chronic) (peripheral); Translations: [VENOUS INSUFF CHRONIC PERIPHERAL] Onset: 01-10-20 Episodic Other gastrointestinal disorders (15 sources) H/O: ulcerative colitis 03-28-2020 Episodic Other gastrointestinal disorders (1 source) Personal history of other diseases of the digestive system Episodic Other gastrointestinal disorders (1 source) Irregular bowel habits; Translations: [Other specified symptoms and signs involving the digestive system and abdomen] Episodic Other gastrointestinal disorders (6 sources) Constipation, unspecified; Translations: [CONSTIPATION UNSPECIFIED] Onset: 11-03-19 Episodic Other gastrointestinal disorders (4 sources) Diarrhea; Translations: [Diarrhea, unspecified] 08-19-2021 Episodic Other gastrointestinal disorders (1 source) Diarrhea, unspecified Episodic Other gastrointestinal disorders (2 sources) Change in bowel habit Episodic Other gastrointestinal disorders (4 sources) Constipation; Translations: [Constipation, unspecified] Episodic Other gastrointestinal disorders (1 source) Dark stools; Translations: [Other fecal abnormalities] 02-07-2024 Episodic Other male genital disorders (20 sources) Disorder of male genital organ; Translations: [Hydrocele] 03-28-2020 Episodic Other male genital disorders (20 sources) Hydrocele; Translations: [Hydrocele, unspecified] 10-03-2010 Episodic Other male genital disorders (2 sources) Hydrocele, unspecified; Translations: [Hydrocele, left] Episodic Other male genital disorders (1 source) Hydrocele of testis; Translations: [Hydrocele, unspecified] Onset: 04-20-20 Episodic Other nervous system disorders (20 sources) Carpal tunnel syndrome; Translations: [Carpal tunnel syndrome, right upper limb] Chronic Other nervous system disorders (15 sources) Trigeminal neuralgia 03-28-2020 Episodic Other non-traumatic joint disorders (15 sources) Hip pain 03-28-2020 Episodic Other nutritional; endocrine; and metabolic disorders (4 sources) Overweight in adulthood with body mass index of 25 or more but less than 30; Translations: [Overweight] Episodic Other nutritional; endocrine; and metabolic disorders (2 sources) Body mass index (BMI) 26.0-26.9, adult; Translations: [Body mass index (BMI) 26.0-26.9, adult] Onset: 05-20-20 Episodic Poisoning by nonmedicinal substances (1 source) [...] 11-20-19 24 11-20-2023 Episodic Residual codes; unclassified (1 source) Edema of lower extremity; Translations: [Localized edema] 02-17-2024 Episodic Skin and subcutaneous tissue infections (4 sources) Carbuncle of buttock; Translations: [Pilonidal cyst without abscess] Episodic Spondylosis; intervertebral disc disorders; other back problems (20 sources) Lumbar spondylosis; Translations: [Inflammation of sacroiliac joint] Onset: 01-10-20 23 03-28-2020 Chronic Unclassified (15 sources) Asymptomatic microscopic hematuria 12-26-2020 Unclassified (15 sources) Body mass index 20-24 - normal 04-26-2020 Unclassified (2 sources) CONTACT W/AND (SUSP) EXPOS COVID-19; Translations: [CONTACT W/AND (SUSP) EXPOS COVID-19] Onset: 04-10-20 Unclassified (1 source) Postprocedural intestinal obstruction, unspecified as to partial versus complete; Translations: [Postprocedural intestinal obstruction, unspecified as to partial versus complete] Onset: 10-23-19 Unclassified (1 source) Simulation Request Form Onset: 01-08-20 Urinary tract infections (19 sources) Urinary tract infectious disease; Translations: [Urinary tract infection, site not specified] 08-29-2020 Episodic Viral infection (4 sources) COVID-19; Translations: [COVID-19] Onset: 04-09-20 Past or Other Problems Problem Classification Problem Date Documented Da te Episodic/Chronic Abdominal pain (5 sources) Generalized abdominal pain; Translations: [Generalized abdominal pain] Onset: 11-03-2022 Episodic Cancer of colon (12 sources) Personal history of other malignant neoplasm of large intestine; Translations: [History of malignant neoplasm of colon] Onset: 01-09-2023 Episodic Coronary atherosclerosis and other heart disease (20 sources) Stented coronary artery; Translations: [Presence of coronary angioplasty implant and graft] Onset: 06-25-2023 11-20-2023 Episodic Intestinal obstruction without hernia (20 sources) Stricture of colon; Translations: [Other intestinal [...] edema; Translations: [LOCALIZED EDEMA] Onset: 03-28-2022 Episodic Residual codes; unclassified (2 sources) Other specified health status; Translations: [Other specified health status] Onset: 11-20-2023 Episodic Unclassified (5 sources) colon ca resection( Confirmed ) 10-03-2010 Unclassified (10 sources) colon ca resection 10-03-2010 Unclassified (1 source) CONTACT W/AND (SUSP) EXPOS COVID-19; Translations: [CONTACT W/AND (SUSP) EXPOS COVID-19] Onset: 04-06-2022 Unclassified (4 sources) Never smoked tobacco; Translations: [Never a smoker] Unclassified (1 source) Onset: 11-20-2023 11-20-2023 Results Test Name Value Interpretation Reference Range Facility Ambulatory Visit Summaryon 0 04-20-2024 Ambulatory Visit Summary Ambulatory Visit Summary KENNEDY KONG :1935 Visit Date:04/20/2024 Ambulatory Visit Instructions Your Diagnosis Recurrent bladder papillary carcinoma Urge incontinence BPH with obstruction/lower urinary tract symptoms Hydrocele Your Care Team Attending Physician - KARLO CHOI, Kylie Restrepo Primary Care Physician - NESTOR ESTRELLA DO This Is Your Medications List mirabegron (Myrbetriq 50 mg oral tablet, extended release) tamsulosin (Flomax 0.4 mg Cap) Contact prescribing physician if questions or concerns clopidogrel (clopidogrel 75 mg Tab) losartan (losartan 25 mg Tab) lubiprostone (lubiprostone 24 mcg Cap) ondansetron (ondansetron 8 mg Tab) rosuvastatin (rosuvastatin 40 mg Tab) ticagrelor (Brilinta (ticagrelor) 90 mg oral tablet) Procedures Performed Radiation therapy care (03/02/2024), TURBT - Transurethral resection of bladder tumor (12/05/2023), Endoscopic destruction of bladder tumor by laser (12/13/2020), TURBT - Transurethral resection of bladder tumor (05/26/2020), Hydrocelectomy (2001), Cardiac catheterization, Cataract, colon resection, colonoscopy. Discharge Vitals Height 179 cm Height 70 in Weight 83.7 kg Weight 184.14 lb BMI 26.12 What to do next You Need to Schedule the Following Appointments Follow Up with KARLO CHOI, Kylie Restrepo, NOY When: Comments: cysto due in June Where: [facility] [address] , [place] [phone]- [phone] Medications What How Much When Instructions New mirabegron (Myrbetriq 50 mg oral tablet, extended release) 1 Tablets By Mouth Every day Refills: 11 Pickup at [facility]/pharmacy #[id number] Unchanged tamsulosin (Flomax 0.4 mg Cap) 1 Capsules By Mouth Every day Unchanged clopidogrel (clopidogrel 75 mg Tab) 1 Tablets By Mouth Every day Contact prescribing physician if questions or concerns Unchanged losartan (losartan 25 mg Tab) TAKE 1 TABLET BY MOUTH EVERY DAY Contact prescribing physician if questions or concerns Unchanged lubiprostone (lubiprostone 24 mcg Cap) TAKE 1 CAPSULE BY MOUTH TWICE A DAY FOR 7 DAYS Contact prescribing physician if questions or concerns Unchanged ondansetron (ondansetron 8 mg Tab) Contact prescribing physician if questions or concerns Unchanged rosuvastatin (rosuvastatin 40 mg Tab) TAKE 1 TABLET BY MOUTH EVERY DAY Contact prescribing physician if questions or concerns Unchanged ticagrelor (Brilinta (ticagrelor) 90 mg oral tablet) 60 EA, TAKE 1 TABLET BY MOUTH EVERY 12 HOURS FOR 30 DAYS Contact prescribing physician if questions or concerns Pharmacy Information [facility]/pharmacy #[id number]: [address] [place], [place] [id number] [phone] Allergies No Known Allergies Problems Ongoing - Any problem that you are currently receiving treatment for. 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 colon ca resection hydrocele Patient Survey You may receive a survey via text or e-mail asking about your office visit. Please share your experience with us by completing your survey. We appreciate your feedback and thank you for choosing us for your care. Education Materials Cystoscopy Cystoscopy is a procedure that is used to help diagnose and sometimes treat conditions that affect the lower urinary tract. The lower urinary tract includes the bladder and the urethra. The urethra is the tube that drains urine from the bladder. Cystoscopy is done using a thin, tube-shaped instrument with a light and camera at the end (cystoscope). The cystoscope may be hard or flexible, depending on the goal of the procedure. The cystoscope is inserted through the urethra, into the bladder. Cystoscopy may be recommended if you have: ? Urinary tract infections that keep coming back. ? Blood in the urine (hematuria). ? An inability to control when you urinate (urinary incontinence) or an overactive bladder. ? Unusual cells found in a urine sample. ? A blockage in the urethra, such as a urinary stone. ? Painful urination. ? An abnormality in the bladder found during an intravenous pyelogram (IVP) or CT scan. Cystoscopy may also be done to remove a sample of tissue to be examined under a microscope (biopsy). Tell a health care provider about: ? Any allergies you have. ? All medicines you are taking, including vitamins, herbs, eye drops, creams, and bgpj-svh-lansukx medicines. (more content not included)... [facility] Patient Letter FTon 2023 Patient Letter [facility] Patient Letter [facility] April 20, 2024 KENNEDY KONG [address] [address] : 1935 To : Financial assistance for cancer treatment, Kennedy Kong, : 1935 is a current urology patient of [facility] who is getting bladder cancer treatments. Please consider helping this patient with financial services that are not covered by the patients insurance. Thank you for any and all assistance you can give this patient. Please feel free to contact our office with any questions or concerns. Sincerely, Kylie Dietrich M.D., F.A.C.S. [facility] [address] [place] [address] Valid Dates :04/20/24- 04/20/25 [facility] Consultation Noteon 03-27-20 Consultation Note [id number]# 1.00TIFF [facility] CBC W Auto Differential pane l (Bld)on 03-25-2024 Basophils (Bld) [#/Vol] 10*3/uL Normal <0.11 [facility] Comment on above: Order Comment: Speci men Type: BLOOD SPECIMENOrdering Facility: [facility] Address: [address] [place] [address] Performed By: #### 5 7021-8 ####[facility] LABCLIA [id number] [place] [address] Basophils/100 WBC (Bld) 0.4 % Normal C [facility] Comment on above: Order Comment: Speci men Type: BLOOD SPECIMENOrdering Facility: [facility] Address: [address] [place] [address] Performed By: #### 5 7021-8 ####[facility] LABCLIA [id number] [place] [address] Differential cell count method Nom (Bld) Auto Normal [facility] Comment on above: Order Comment: Speci men Type: BLOOD SPECIMENOrdering Facility: [facility] Address: [address] [place] [address] Performed By: #### 5 7021-8 ####[facility] LABCLIA [id number] [place] [address] Eosinophils (Bld) [#/Vol] 0.23 10*3/uL Normal <0.46 [facility] Comment on above: Order Comment: Speci men Type: BLOOD SPECIMENOrdering Facility: [facility] Address: [address] [place] [address] Performed By: #### 5 7021-8 ####[facility] LABCLIA [id number] [place] [address] Eosinophils/100 WBC (Bld) 4.3 % Normal [facility] Comment on above: Order Comment: Speci men Type: BLOOD SPECIMENOrdering Facility: [facility] Address: [address] [place] [address] Performed By: #### 5 7021-8 ####[facility] LABCLIA [id number] [place] [address] Erythrocyte distribution width (RBC) [Ratio] 14.6 % Normal 11.5-15.0 [facility] Comment on above: Order Comment: Speci men Type: BLOOD SPECIMENOrdering Facility: [facility] Address: [address] [place] [address] Performed By: #### 5 7021-8 ####[facility] LABCLIA [id number] [place] [address] Hematocrit (Bld) [Volume fraction] 36.3 % Low 39.0-51.0 [facility] Comment on above: Order Comment: Speci men Type: BLOOD SPECIMENOrdering Facility: [facility] Address: [address] [place] [address] Performed By: #### 5 7021-8 ####[facility] LABCLIA [id number] [place] [address] Hemoglobin (Bld) [Mass/Vol] 11.8 g/dL Low 13.0-17.0 [facility] Comment on above: Order Comment: Speci men Type: BLOOD SPECIMENOrdering Facility: [facility] Address: [address] [place] [address] Performed By: #### 5 7021-8 ####[facility] LABCLIA [id number] [place] [address] Immature granulocytes (Bld) [#/Vol] 10*3/uL Normal <0.10 [facility] Comment on above: Order Comment: Speci men Type: BLOOD SPECIMENOrdering Facility: [facility] Address: [address] [place] [address] Performed By: #### 5 7021-8 ####[facility] LABCLIA [id number] [place] [address] Immature granulocytes/100 WBC (Bld) 0.2 % Normal [facility] Comment on above: Order Comment: Speci men Type: BLOOD SPECIMENOrdering Facility: [facility] Address: [address] [place] [address] Performed By: #### 5 7021-8 ####[facility] LABCLIA [id number] [place] [address] Lymphocytes (Bld) [#/Vol] 0.90 10*3/uL Low 1.00-4.00 [facility] Comment on above: Order Comment: Speci men Type: BLOOD SPECIMENOrdering Facility: [facility] Address: [address] [place] [address] Performed By: #### 5 7021-8 ####[facility] LABCLIA [id number] [place] [address] Lymphocytes/100 WBC (Bld) 16.7 % Normal [facility] Comment on above: Order Comment: Speci men Type: BLOOD SPECIMENOrdering Facility: [facility] Address: [address] [place] [address] Performed By: #### 5 7021-8 ####[facility] LABCLIA [id number] [place] [address] MCH (RBC) [Entitic mass] 30.3 pg Normal 26.0-34.0 [facility] Comment on above: Order Comment: Speci men Type: BLOOD SPECIMENOrdering Facility: [facility] Address: [address] [place] [address] Performed By: #### 5 7021-8 ####[facility] LABCLIA [id number] [place] [address] MCHC (RBC) [Mass/Vol] 32.5 g/dL Normal 30.5-36.0 [facility] Comment on above: Order Comment: Speci men Type: BLOOD SPECIMENOrdering Facility: [facility] Address: [address] [place] [address] Performed By: #### 5 7021-8 ####[facility] LABCLIA [id number] [place] [address] MCV (RBC) [Entitic vol] 93.3 fL Normal 80.0-100.0 C [facility] Comment on above: Order Comment: Speci men Type: BLOOD SPECIMENOrdering Facility: [facility] Address: [address] [place] [address] Performed By: #### 5 7021-8 ####[facility] LABCLIA [id number] [place] [address] Monocytes (Bld) [#/Vol] 0.88 10*3/uL High <0.87 [facility] Comment on above: Order Comment: Speci men Type: BLOOD SPECIMENOrdering Facility: [facility] Address: [address] [place] [address] Performed By: #### 5 7021-8 ####[facility] LABCLIA [id number] [place] [address] Monocytes/100 WBC (Bld) 16.3 % Normal C [facility] Comment on above: Order Comment: Speci men Type: BLOOD SPECIMENOrdering Facility: [facility] Address: [address] [place] [address] Performed By: #### 5 7021-8 ####[facility] LABCLIA [id number] [place] [address] Neutrophils (Bld) [#/Vol] 3.35 10*3/uL Normal 1.45-7.50 [facility] Comment on above: Order Comment: Speci men Type: BLOOD SPECIMENOrdering Facility: [facility] Address: [address] [place] [address] Performed By: #### 5 7021-8 ####[facility] LABCLIA [id number] [place] [address] Neutrophils/100 WBC (Bld) 62.1 % Normal [facility] Comment on above: Order Comment: Speci men Type: BLOOD SPECIMENOrdering Facility: [facility] Address: [address] [place] [address] Performed By: #### 5 7021-8 ####[facility] LABCLIA [id number] [place] [address] Nucleated RBC (Bld) [#/Vol] 10*3/uL Normal <0.01 [facility] Comment on above: Order Comment: Speci men Type: BLOOD SPECIMENOrdering Facility: [facility] Address: [address] [place] [address] Performed By: #### 5 7021-8 ####[facility] LABCLIA [id number] [place] [address] Nucleated RBC/100 WBC (Bld) [Ratio] 0.0 /[address] [facility] Comment on above: Order Comment: Speci men Type: BLOOD SPECIMENOrdering Facility: [facility] Address: [address] [place] [address] Performed By: #### 5 7021-8 ####[facility] LABCLIA [id number] [place] [address] Platelet mean volume (Bld) [Entitic vol] 8.6 fL Low 9.0-12.7 [facility] Comment on above: Order Comment: Speci men Type: BLOOD SPECIMENOrdering Facility: [facility] Address: [address] [place] [address] Performed By: #### 5 7021-8 ####[facility] LABCLIA [id number] [place] [address] Platelets (Bld) [#/Vol] 165 10*3/uL Normal 150-400 [facility] Comment on above: Order Comment: Speci men Type: BLOOD SPECIMENOrdering Facility: [facility] Address: [address] [place] [address] Result Comment: No c lot detected. No clot detected. Performed By: #### 5 7021-8 ####[facility] LABCLIA [id number] [place] [address] RBC (Bld) [#/Vol] 3.89 10*6/uL Low 4.20-6.00 [facility] Comment on above: Order Comment: Speci men Type: BLOOD SPECIMENOrdering Facility: [facility] Address: [address] [place] [address] Performed By: #### 5 7021-8 ####[facility] LABCLIA [id number] [place] [address] WBC (Bld) [#/Vol] 5.39 10*3/uL Normal 3.70-11.00 [facility] Comment on above: Order Comment: Speci men Type: BLOOD SPECIMENOrdering Facility: [facility] Address: [address] [place] [address] Performed By: #### 5 7021-8 ####[facility] LABCLIA [id number] [place] [address] CNOVon 03-25-[address] [facility] CNOVSPon 03-25-[address] [facility] Comprehensive metabolic 2000 panelon 03-25-2024 Albumin [Mass/Vol] 3.8 g/dL Low 3.9-4.9 [facility] Comment on above: Order Comment: Speci men Type: BLOOD SPECIMENOrdering Facility: [facility] Address: [address] [place] [address] Performed By: #### 2 4323-8 ####[facility] LABCLIA [id number] [place] [address] ALP [Catalytic activity/Vol] 53 U/L Normal 38-113 [facility] Comment on above: Order Comment: Speci men Type: BLOOD SPECIMENOrdering Facility: [facility] Address: [address] [place] [address] Performed By: #### 2 4323-8 ####[facility] LABCLIA [id number] [place] [address] ALT [Catalytic activity/Vol] 13 U/L Normal 10-54 [facility] Comment on above: Order Comment: Speci men Type: BLOOD SPECIMENOrdering Facility: [facility] Address: [address] [place] [address] Performed By: #### 2 4323-8 ####[facility] LABCLIA [id number] [place] [address] Anion gap [Moles/Vol] 8 mmol/L Normal 8-15 [facility] Comment on above: Order Comment: Speci men Type: BLOOD SPECIMENOrdering Facility: [facility] Address: [address] [place] [address] Performed By: #### 2 4323-8 ####[facility] LABCLIA [id number] [place] [address] AST [Catalytic activity/Vol] 15 U/L Normal 14-40 [facility] Comment on above: Order Comment: Speci men Type: BLOOD SPECIMENOrdering Facility: [facility] Address: [address] [place] [address] Performed By: #### 2 4323-8 ####[facility] LABCLIA [id number] [place] [address] Bilirubin [Mass/Vol] 0.2 mg/dL Normal 0.2-1.3 [facility] Comment on above: Order Comment: Speci men Type: BLOOD SPECIMENOrdering Facility: [facility] Address: [address] [place] [address] Performed By: #### 2 4323-8 ####[facility] LABCLIA [id number] [place] [address] Calcium [Mass/Vol] 9.2 mg/dL Normal 8.5-10.2 [facility] Comment on above: Order Comment: Speci men Type: BLOOD SPECIMENOrdering Facility: [facility] Address: [address] [place] [address] Performed By: #### 2 4323-8 ####[facility] LABCLIA [id number] [place] [address] Chloride [Moles/Vol] 112 mmol/L High 98-107 [facility] Comment on above: Order Comment: Speci men Type: BLOOD SPECIMENOrdering Facility: [facility] Address: [address] [place] [address] Performed By: #### 2 4323-8 ####[facility] LABCLIA [id number] [place] [address] CO2 [Moles/Vol] 23 mmol/L Normal 22-30 [facility] Comment on above: Order Comment: Speci men Type: BLOOD SPECIMENOrdering Facility: [facility] Address: [address] [place], [place] [address] Performed By: #### 2 4323-8 ####[facility] LABCLIA [id number] [place] [address] Creatinine [Mass/Vol] 1.19 mg/dL Normal 0.73-1.22 [facility] Comment on above: Order Comment: Carli arthur Type: BLOOD SPECIMENOrdering Facility: [facility] Address: [address] [place], [place] [address] Performed By: #### 2 4323-8 ####[facility] LABCLIA [id number] [place] [address] Creatinine and Glomerular filtration rate.predicted panel (S/P/Bld) 59 mL/min/1.73m??? Low >=60 [facility] Comment on above: Order Comment: Carli arthur Type: BLOOD SPECIMENOrdering Facility: [facility] Address: [address] [place] [address] Result Comment: Cristina mated Glomerular Filtration Rate (eGFR) is calculated using the 2020 CKD-EPI creatinine equation. This equation utilizes serum creatinine, sex, and age as parameters. The creatinine assay has traceable calibration to isotope dilution-mass spectrometry. Refer to KDIGO guidelines for clinical interpretation. In patients with unstable renal function, e.g. those with acute kidney injury, the eGFR may not accurately reflect actual GFR. Performed By: #### 2 4323-8 ####[facility] LABCLIA [id number] [place] [address] Glucose [Mass/Vol] 135 mg/dL High 74-99 [facility] Comment on above: Order Comment: Carli arthur Type: BLOOD SPECIMENOrdering Facility: [facility] Address: [address] [place], [place] [address] Result Comment: The [place] Diabetes [employer] (ADA) provides guidance for cutoff values for fasting glucose and random glucose. The ADA defines fasting as no caloric intake for at least 8 hours. Fasting plasma glucose results between 100 to 125 mg/dL indicate increased risk for diabetes (prediabetes).Fasting plasma glucose results greater than or equal to 126 mg/dL meet the criteria for diagnosis of diabetes. In the absence of unequivocal hyperglycemia, results should be confirmed by repeat testing. In a patient with classic symptoms of hyperglycemia or hyperglycemic crisis, random plasma glucose results greater than or equal to 200 mg/dL meet the criteria for diagnosis of diabetes.Reference: Standards of Medical Care in Diabetes 2016, [place] [employer]. Diabetes Care. 2016.39(Suppl 1). Performed By: #### 2 4323-8 ####[facility] LABCLIA [id number] [place] [address] Potassium [Moles/Vol] 4.8 mmol/L Normal 3.7-5.1 [facility] Comment on above: Order Comment: Speci men Type: BLOOD SPECIMENOrdering Facility: [facility] Address: [address] [place] [address] Performed By: #### 2 4323-8 ####[facility] LABCLIA [id number] [place] [address] Protein [Mass/Vol] 6.2 g/dL Low 6.3-8.0 [facility] Comment on above: Order Comment: Speci men Type: BLOOD SPECIMENOrdering Facility: [facility] Address: [address] [place] [address] Performed By: #### 2 4323-8 ####[facility] LABCLIA [id number] [place] [address] Sodium [Moles/Vol] 143 mmol/L Normal 136-144 [facility] Comment on above: Order Comment: Speci men Type: BLOOD SPECIMENOrdering Facility: [facility] Address: [address] [place] [address] Performed By: #### 2 4323-8 ####[facility] LABCLIA [id number] [place] [address] Urea nitrogen [Mass/Vol] 34 mg/dL High 9-24 [facility] Comment on above: Order Comment: Speci men Type: BLOOD SPECIMENOrdering Facility: [facility] Address: [address] [place] [address] Performed By: #### 2 4323-8 ####[facility] LABCLIA [id number] [place] [address] Consultation Noteon 06-02-20 24 Consultation Note [id number]# 1.00TIFF [facility] C Urineon 03-06-2024 Bacteria identified Cx Nom (U) Microbiology PROCEDURE: Urine Culture [R1] SOURCE: U Random BODY SITE: COLLECTED DATE/TIME: 03/04/2024 09:46 EDT RECEIVED DATE/TIME: 03/04/2024 18:18 EDT START DATE/TIME: 03/04/2024 18:18 EDT FREE TEXT SOURCE: Orzech [employer], RN OSTOMY-C, Orzech [employer], RN OSTOMY-C, Sridevi X Sridevi X FINAL REPORTS Final Report [] Verified Date/Time: 03/06/2024 08:32 EDT 3,000 cfu/ml Mixed skin contaminants Performing Locations R1: This test was performed at: [facility], [address] [place] [address], [address] [place] [address], [facility] Comment on above: Performed By: #### 2 [id number] #### [facility] [address] [place] [address] Bacteria identified Cx Nom (U) Microbiology PROCEDURE: Urine Culture [R1] SOURCE: U Random BODY SITE: COLLECTED DATE/TIME: 03/04/2024 09:46 EDT RECEIVED DATE/TIME: 03/04/2024 18:18 EDT START DATE/TIME: 03/04/2024 18:18 EDT FREE TEXT SOURCE: Orzech [employer], RN OSTOMY-C, [employer]zech [employer], RN OSTOMY-C, Sridevi X Sridevi X FINAL REPORTS Final Report [] Verified Date/Time: 03/06/2024 08:32 EDT 3,000 cfu/ml Mixed skin contaminants Performing Locations R1: This test was performed at: [facility], [address] [place] [address], [id number] [place] [address], [facility] Comment on above: Performed By: #### 2 [id number] #### [facility] [address] [place] [address] Lab Reportson 03-04-2024 Lab Reports [id number] #1.00TIFF Normal Pranay [facility] CNOVon 03-02-[address] [facility] Basophils Auto (Bld) [#/Vol] on 02-26-2024 Basophils (Bld) [#/Vol] 10*3/uL <0.11 F [facility] Basophils/100 WBC Auto (Bld) on 02-26-2024 Basophils/100 WBC (Bld) 0.4 % F [facility] Blood manual differential co mment interpretation narrativeon 02-26-2024 Manual differential comment Joshua (Bld) [Interp] Auto [facility] CBC W Auto Differential pane l (Bld)on 02-26-2024 Basophils (Bld) [#/Vol] 10*3/uL Normal <0.11 C [facility] Comment on above: Order Comment: Speci men Type: BLOOD SPECIMENOrdering Facility: [facility] Address: [address] [place] [address] Performed By: #### 5 7021-8 ####[facility] LABCLIA [id number] [place] [id number] Basophils/100 WBC (Bld) 0.4 % Normal C [facility] Comment on above: Order Comment: Speci men Type: BLOOD SPECIMENOrdering Facility: [facility] Address: [address] [place] [address] Performed By: #### 5 7021-8 ####[facility] LABCLIA [id number] [place] [id number] Differential cell count method Nom (Bld) Auto Normal [facility] Comment on above: Order Comment: Speci men Type: BLOOD SPECIMENOrdering Facility: [facility] Address: [address] [place] [address] Performed By: #### 5 7021-8 ####[facility] LABCLIA [id number] [place] [address] Eosinophils (Bld) [#/Vol] 0.21 10*3/uL Normal <0.46 [facility] Comment on above: Order Comment: Speci men Type: BLOOD SPECIMENOrdering Facility: [facility] Address: [address] [place] [address] Performed By: #### 5 7021-8 ####[facility] LABCLIA [id number] [place] [address] Eosinophils/100 WBC (Bld) 4.7 % Normal [facility] Comment on above: Order Comment: Speci men Type: BLOOD SPECIMENOrdering Facility: [facility] Address: [address] [place] [address] Performed By: #### 5 7021-8 ####[facility] LABCLIA [id number] [place] [address] Erythrocyte distribution width (RBC) [Ratio] 14.1 % Normal 11.5-15.0 [facility] Comment on above: Order Comment: Speci men Type: BLOOD SPECIMENOrdering Facility: [facility] Address: [address] [place] [address] Performed By: #### 5 7021-8 ####[facility] LABCLIA [id number] [place] [address] Hematocrit (Bld) [Volume fraction] 38.3 % Low 39.0-51.0 [facility] Comment on above: Order Comment: Speci men Type: BLOOD SPECIMENOrdering Facility: [facility] Address: [address] [place] [address] Performed By: #### 5 7021-8 ####[facility] LABCLIA [id number] [place] [address] Hemoglobin (Bld) [Mass/Vol] 12.3 g/dL Low 13.0-17.0 [facility] Comment on above: Order Comment: Speci men Type: BLOOD SPECIMENOrdering Facility: [facility] Address: [address] [place] [address] Performed By: #### 5 7021-8 ####[facility] LABCLIA [id number] [place] [address] Immature granulocytes (Bld) [#/Vol] 10*3/uL Normal <0.10 [facility] Comment on above: Order Comment: Speci men Type: BLOOD SPECIMENOrdering Facility: [facility] Address: [address] [place] [address] Performed By: #### 5 7021-8 ####[facility] LABCLIA [id number] [place] [address] Immature granulocytes/100 WBC (Bld) 0.4 % Normal [facility] Comment on above: Order Comment: Speci men Type: BLOOD SPECIMENOrdering Facility: [facility] Address: [address] [place] [address] Performed By: #### 5 7021-8 ####[facility] LABCLIA [id number] [place] [address] Lymphocytes (Bld) [#/Vol] 0.66 10*3/uL Low 1.00-4.00 [facility] Comment on above: Order Comment: Speci men Type: BLOOD SPECIMENOrdering Facility: [facility] Address: [address] [place] [address] Performed By: #### 5 7021-8 ####[facility] LABCLIA [id number] [place] [address] Lymphocytes/100 WBC (Bld) 14.7 % Normal [facility] Comment on above: Order Comment: Speci men Type: BLOOD SPECIMENOrdering Facility: [facility] Address: [address] [place] [address] Performed By: #### 5 7021-8 ####[facility] LABCLIA [id number] [place] [address] MCH (RBC) [Entitic mass] 29.7 pg Normal 26.0-34.0 [facility] Comment on above: Order Comment: Speci men Type: BLOOD SPECIMENOrdering Facility: [facility] Address: [address] [place] [address] Performed By: #### 5 7021-8 ####[facility] LABCLIA [id number] [place] [address] MCHC (RBC) [Mass/Vol] 32.1 g/dL Normal 30.5-36.0 [facility] Comment on above: Order Comment: Speci men Type: BLOOD SPECIMENOrdering Facility: [facility] Address: [address] [place] [address] Performed By: #### 5 7021-8 ####[facility] LABCLIA [id number] [place] [address] MCV (RBC) [Entitic vol] 92.5 fL Normal 80.0-100.0 [facility] Comment on above: Order Comment: Speci men Type: BLOOD SPECIMENOrdering Facility: [facility] Address: [address] [place] [address] Performed By: #### 5 7021-8 ####[facility] LABCLIA [id number] [place] [address] Monocytes (Bld) [#/Vol] 0.71 10*3/uL Normal <0.87 [facility] Comment on above: Order Comment: Speci men Type: BLOOD SPECIMENOrdering Facility: [facility] Address: [address] [place] [address] Performed By: #### 5 7021-8 ####[facility] LABCLIA [id number] [place] [address] Monocytes/100 WBC (Bld) 15.8 % Normal C [facility] Comment on above: Order Comment: Speci men Type: BLOOD SPECIMENOrdering Facility: [facility] Address: [address] [place] [address] Performed By: #### 5 7021-8 ####[facility] LABCLIA [id number] [place] [address] Neutrophils (Bld) [#/Vol] 2.86 10*3/uL Normal 1.45-7.50 [facility] Comment on above: Order Comment: Speci men Type: BLOOD SPECIMENOrdering Facility: [facility] Address: [address] [place] [address] Performed By: #### 5 7021-8 ####[facility] LABCLIA [id number] [place] [address] Neutrophils/100 WBC (Bld) 64.0 % Normal [facility] Comment on above: Order Comment: Speci men Type: BLOOD SPECIMENOrdering Facility: [facility] Address: [address] [place] [address] Performed By: #### 5 7021-8 ####[facility] LABCLIA [id number] [place] [address] Nucleated RBC (Bld) [#/Vol] 10*3/uL Normal <0.01 [facility] Comment on above: Order Comment: Speci men Type: BLOOD SPECIMENOrdering Facility: [facility] Address: [address] [place] [address] Performed By: #### 5 7021-8 ####[facility] LABCLIA [id number] [place] [address] Nucleated RBC/100 WBC (Bld) [Ratio] 0.0 /[address] [facility] Comment on above: Order Comment: Speci men Type: BLOOD SPECIMENOrdering Facility: [facility] Address: [address] [place] [address] Performed By: #### 5 7021-8 ####[facility] LABIA [id number] [place] [address] Platelet mean volume (Bld) [Entitic vol] 8.7 fL Low 9.0-12.7 [facility] Comment on above: Order Comment: Speci men Type: BLOOD SPECIMENOrdering Facility: [facility] Address: [address] [place], [place] [address] Performed By: #### 5 7021-8 ####[facility] LABIA [id number] [place] [address] Platelets (Bld) [#/Vol] 155 10*3/uL Normal 150-400 [facility] Comment on above: Order Comment: Speci men Type: BLOOD SPECIMENOrdering Facility: [facility] Address: [address] [place] [address] Performed By: #### 5 7021-8 ####[facility] LABIA [id number] [place] [address] RBC (Bld) [#/Vol] 4.14 10*6/uL Low 4.20-6.00 [facility] Comment on above: Order Comment: Speci men Type: BLOOD SPECIMENOrdering Facility: [facility] Address: [address] [place] [address] Performed By: #### 5 7021-8 ####[facility] LABIA [id number] [place] [address] WBC (Bld) [#/Vol] 4.48 10*3/uL Normal 3.70-11.00 [facility] Comment on above: Order Comment: Speci men Type: BLOOD SPECIMENOrdering Facility: [facility] Address: [address] [place] [address] Performed By: #### 5 7021-8 ####[facility] LABIA [id number] [place] [address] CNOVSPon 02-26-[address] [facility] Comprehensive metabolic 2000 panelon 02-26-2024 Albumin [Mass/Vol] 3.7 g/dL Low 3.9-4.9 [facility] Comment on above: Order Comment: Speci men Type: BLOOD SPECIMENOrdering Facility: [facility] Address: [address] [place] [address] Performed By: #### 2 4323-8 ####[facility] LABCLIA [id number] [place] [address] ALP [Catalytic activity/Vol] 57 U/L Normal 38-113 [facility] Comment on above: Order Comment: Speci men Type: BLOOD SPECIMENOrdering Facility: [facility] Address: [address] [place] [address] Performed By: #### 2 4323-8 ####[facility] LABCLIA [id number] [place] [address] ALT [Catalytic activity/Vol] 15 U/L Normal 10-54 [facility] Comment on above: Order Comment: Speci men Type: BLOOD SPECIMENOrdering Facility: [facility] Address: [address] [place] [address] Performed By: #### 2 4323-8 ####[facility] LABCLIA [id number] [place] [address] Anion gap [Moles/Vol] 8 mmol/L Low 9-18 [facility] Comment on above: Order Comment: Speci men Type: BLOOD SPECIMENOrdering Facility: [facility] Address: [address] [place] [address] Performed By: #### 2 4323-8 ####[facility] LABCLIA [id number] [place] [address] AST [Catalytic activity/Vol] 14 U/L Normal 14-40 [facility] Comment on above: Order Comment: Speci men Type: BLOOD SPECIMENOrdering Facility: [facility] Address: [address] [place], [place] [address] Performed By: #### 2 4323-8 ####[facility] LABCLIA [id number] [place] [address] Bilirubin [Mass/Vol] 0.2 mg/dL Normal 0.2-1.3 [facility] Comment on above: Order Comment: Speci men Type: BLOOD SPECIMENOrdering Facility: [facility] Address: [address] [place] [address] Performed By: #### 2 4323-8 ####[facility] LABCLIA [id number] [place] [address] Calcium [Mass/Vol] 9.3 mg/dL Normal 8.5-10.2 [facility] Comment on above: Order Comment: Speci men Type: BLOOD SPECIMENOrdering Facility: [facility] Address: [address] [place] [address] Performed By: #### 2 4323-8 ####[facility] LABCLIA [id number] [place] [address] Chloride [Moles/Vol] 106 mmol/L High 97-105 [facility] Comment on above: Order Comment: Speci men Type: BLOOD SPECIMENOrdering Facility: [facility] Address: [address] [place] [address] Performed By: #### 2 4323-8 ####[facility] LABCLIA [id number] [place] [address] CO2 [Moles/Vol] 27 mmol/L Normal 22-30 [facility] Comment on above: Order Comment: Speci men Type: BLOOD SPECIMENOrdering Facility: [facility] Address: [address] [place] [address] Performed By: #### 2 4323-8 ####[facility] LABCLIA [id number] [place] [address] Creatinine [Mass/Vol] 1.10 mg/dL Normal 0.73-1.22 [facility] Comment on above: Order Comment: Speci men Type: BLOOD SPECIMENOrdering Facility: [facility] Address: [address] [place] [address] Performed By: #### 2 4323-8 ####[facility] LABCLIA [id number] [place] [address] Creatinine and Glomerular filtration rate.predicted panel (S/P/Bld) 65 mL/min/1.73m??? Normal >=60 [facility] Comment on above: Order Comment: Carli arthur Type: BLOOD SPECIMENOrdering Facility: [facility] Address: [address] [place] [address] Result Comment: Cristina mated Glomerular Filtration Rate (eGFR) is calculated using the 2020 CKD-EPI creatinine equation. This equation utilizes serum creatinine, sex, and age as parameters. The creatinine assay has traceable calibration to isotope dilution-mass spectrometry. Refer to KDIGO guidelines for clinical interpretation. In patients with unstable renal function, e.g. those with acute kidney injury, the eGFR may not accurately reflect actual GFR. Performed By: #### 2 4323-8 ####[facility] LABCLIA [id number] [place] [address] Glucose [Mass/Vol] 93 mg/dL Normal 74-99 [facility] Comment on above: Order Comment: Carli arthur Type: BLOOD SPECIMENOrdering Facility: [facility] Address: [address] [place] [address] Result Comment: The [place] [employer] (ADA) provides guidance for cutoff values for fasting glucose and random glucose. The ADA defines fasting as no caloric intake for at least 8 hours. Fasting plasma glucose results between 100 to 125 mg/dL indicate increased risk for diabetes (prediabetes).Fasting plasma glucose results greater than or equal to 126 mg/dL meet the criteria for diagnosis of diabetes. In the absence of unequivocal hyperglycemia, results should be confirmed by repeat testing. In a patient with classic symptoms of hyperglycemia or hyperglycemic crisis, random plasma glucose results greater than or equal to 200 mg/dL meet the criteria for diagnosis of diabetes.Reference: Standards of Medical Care in Diabetes 2016, [place] [employer]. Diabetes Care. 2016.39(Suppl 1). Performed By: #### 2 4323-8 ####[facility] LABCLIA [id number] [place] [address] Potassium [Moles/Vol] 4.4 mmol/L Normal 3.7-5.1 [facility] Comment on above: Order Comment: Carli arthur Type: BLOOD SPECIMENOrdering Facility: [facility] Address: [address] [place] [address] Performed By: #### 2 4323-8 ####[facility] LABCLIA [id number] [place] [address] Protein [Mass/Vol] 6.2 g/dL Low 6.3-8.0 [facility] Comment on above: Order Comment: Speci men Type: BLOOD SPECIMENOrdering Facility: [facility] Address: [address] [place] [address] Performed By: #### 2 4323-8 ####[facility] LABCLIA [id number] [place] [address] Sodium [Moles/Vol] 141 mmol/L Normal 136-144 [facility] Comment on above: Order Comment: Speci men Type: BLOOD SPECIMENOrdering Facility: [facility] Address: [address] [place] [address] Performed By: #### 2 4323-8 ####[facility] LABCLIA [id number] [place] [address] Urea nitrogen [Mass/Vol] 21 mg/dL Normal 9-24 [facility] Comment on above: Order Comment: Speci men Type: BLOOD SPECIMENOrdering Facility: [facility] Address: [address] [place] [address] Performed By: #### 2 4323-8 ####[facility] LABCLIA [id number] [place] [address] Eosinophils/100 WBC Auto (Bl d)on 02-26-2024 Eosinophils/100 WBC (Bld) 4.7 % [facility] Erythrocyte distribution wid th Auto (RBC) [Ratio]on 02-26-2024 Erythrocyte distribution width (RBC) [Ratio] 14.1 % 11.5-15.0 [facility] Hematocrit Auto (Bld) [Volum e fraction]on 02-26-2024 Hematocrit (Bld) [Volume fraction] 38.3 % 39.0-51.0 [facility] Hemoglobin [Mass/volume] in Bloodon 02-26-2024 Hemoglobin (Bld) [Mass/Vol] 12.3 g/dL 13.0-17.0 [facility] Laboratory - Chemistry and C hemistry - challengeon 02-26-2024 Albumin [Mass/Vol] 3.7 g/dL 3.9-4.9 [facility] ALP [Catalytic activity/Vol] 57 U/L 38-113 [facility] ALT [Catalytic activity/Vol] 15 U/L 10-54 [facility] AST [Catalytic activity/Vol] 14 U/L 14-40 [facility] Bilirubin [Mass/Vol] 0.2 mg/dL 0.2-1.3 [facility] Calcium [Mass/Vol] 9.3 mg/dL 8.5-10.2 [facility] Chloride [Moles/Vol] 106 mmol/L 97-105 [facility] CO2 [Moles/Vol] 27 mmol/L 22-30 [facility] Creatinine [Mass/Vol] 1.10 mg/dL 0.73-1.22 [facility] Glucose [Mass/Vol] 93 mg/dL 74-99 [facility] Comment on above: The [place] Di[employer] s Association (ADA) provides guidance for cutoff values for fasting glucose and random glucose. The ADA defines fasting as no caloric intake for at least 8 hours. Fasting plasma glucose results between 100 to 125 mg/dL indicate increased risk for diabetes (prediabetes).Fasting plasma glucose results greater than or equal to 126 mg/dL meet the criteria for diagnosis of diabetes. In the absence of unequivocal hyperglycemia, results should be confirmed by repeat testing. In a patient with classic symptoms of hyperglycemia or hyperglycemic crisis, random plasma glucose results greater than or equal to 200 mg/dL meet the criteria for diagnosis of diabetes.Reference: Standards of Medical Care in Diabetes 2016, [place] [employer]. Diabetes Care. 2016.39(Suppl 1). Potassium [Moles/Vol] 4.4 mmol/L 3.7-5.1 [facility] Sodium [Moles/Vol] 141 mmol/L 136-144 [facility] Urea nitrogen [Mass/Vol] 21 mg/dL 9-24 [facility] Laboratory - Hematology and Cell countson 02-26-2024 Eosinophils (Bld) [#/Vol] 0.21 10*3/uL <0.46 [facility] Immature granulocytes/100 WBC (Bld) 0.4 % [facility] Leukocytes [#/volume] correc ramona for nucleated erythrocytes in Blood by Automated counon 02-26-2024 WBC corrected for nucl RBC Auto (Bld) [#/Vol] 4.48 k/uL 3.70-11.00 [facility] Lymphocytes Auto (Bld) [#/Vo l]on 02-26-2024 Lymphocytes (Bld) [#/Vol] 0.66 10*3/uL 1.00-4.00 [facility] Lymphocytes/100 WBC Auto (Bl d)on 02-26-2024 Lymphocytes/100 WBC (Bld) 14.7 % [facility] MCH Auto (RBC) [Entitic mass ]on 02-26-2024 MCH (RBC) [Entitic mass] 29.7 pg 26.0-34.0 [facility] MCHC Auto (RBC) [Mass/Vol]on 02-26-2024 MCHC (RBC) [Mass/Vol] 32.1 g/dL 30.5-36.0 [facility] MCV Auto (RBC) [Entitic vol] on 02-26-2024 MCV (RBC) [Entitic vol] 92.5 fL 80.0-100.0 [facility] Monocytes Auto (Bld) [#/Vol] on 02-26-2024 Monocytes (Bld) [#/Vol] 0.71 10*3/uL <0.87 [facility] Monocytes/100 WBC Auto (Bld) on 02-26-2024 Monocytes/100 WBC (Bld) 15.8 % [facility] Neutrophils Auto (Bld) [#/Vo l]on 02-26-2024 Neutrophils (Bld) [#/Vol] 2.86 10*3/uL 1.45-7.50 [facility] Neutrophils/100 WBC Auto (Bl d)on 02-26-2024 Neutrophils/100 WBC (Bld) 64.0 % [facility] No Panel Informationon 02-25 Estimated GFR (CKD-EPI) 65 mL/min/1.73m??? >=60 [facility] Comment on above: Estimated Glomerular Filtration Rate (eGFR) is calculated using the 2020 CKD-EPI creatinine equation. This equation utilizes serum creatinine, sex, and age as parameters. The creatinine assay has traceable calibration to isotope dilution-mass spectrometry. Refer to KDIGO guidelines for clinical interpretation. In patients with unstable renal function, e.g. those with acute kidney injury, the eGFR may not accurately reflect actual GFR. Immature Granulocyte # (Auto) <0.03 k/uL <0.10 [facility] Nucleated RBC Auto (Bld) [#/ Vol]on 02-26-2024 Nucleated RBC (Bld) [#/Vol] 10*3/uL <0.01 [facility] Nucleated erythrocytes [Pres ence] in Blood by Automated counton 02-26-2024 Nucleated RBC Auto Ql (Bld) 0.0 /100{WBC} [facility] Platelet mean volume Auto (B ld) [Entitic vol]on 02-26-2024 Platelet mean volume (Bld) [Entitic vol] 8.7 fL 9.0-12.7 [facility] Platelets Auto (Bld) [#/Vol] on 02-26-2024 Platelets (Bld) [#/Vol] 155 10*3/uL 150-400 [facility] Protein [Mass/volume] in Ser um or Plasmaon 02-26-2024 Protein [Mass/Vol] 6.2 g/dL 6.3-8.0 [facility] RBC Auto (Bld) [#/Vol]on RBC (Bld) [#/Vol] 4.14 10*6/uL 4.20-6.00 [facility] Serum or plasma anion gap de terminationon 02-26-2024 Anion gap [Moles/Vol] 8 mmol/L 9-18 [facility] CNOVon 02-24-[address] [facility] CNPNon 02-24-[address] [facility] CNOVon 02-21-[address] [facility] CNPNon 05-03-[address] [facility] Basic metabolic 2000 panelOr dered By: Julio Way on 02-19-2024 Anion gap [Moles/Vol] 5 mmol/L Low 9 - 18 mmol/L [facility] Calcium [Mass/Vol] 8.3 mg/dL Low 8.5 - 10. 2 mg/dL [facility] Chloride [Moles/Vol] 107 mmol/L High 97 - 10 5 mmol/L [facility] CO2 [Moles/Vol] 25 mmol/L 22 - 30 mmol/L [facility] Creatinine [Mass/Vol] 0.90 mg/dL 0.73 - 1.22 mg/dL [facility] GFR/1.73 sq M.predicted among non-blacks MDRD (S/P/Bld) [Vol rate/Area] 83 mL/min/{1.73_m2} - PINF [facility] Comment on above: Estimated Glomerular Filtration Rate (eGFR) is calculated using the 2020 CKD-EPI creatinine equation. This equation utilizes serum creatinine, sex, and age as parameters. The creatinine assay has traceable calibration to isotope dilution-mass spectrometry. Refer to KDIGO guidelines for clinical interpretation. In patients with unstable renal function, e.g. those with acute kidney injury, the eGFR may not accurately reflect actual GFR. Glucose [Mass/Vol] 114 mg/dL High 74 - 99 mg/dL [facility] Comment on above: The [place] Di[employer] s Association (ADA) provides guidance for cutoff values for fasting glucose and random glucose. The ADA defines fasting as no caloric intake for at least 8 hours. Fasting plasma glucose results between 100 to 125 mg/dL indicate increased risk for diabetes (prediabetes). Fasting plasma glucose results greater than or equal to 126 mg/dL meet the criteria for diagnosis of diabetes. In the absence of unequivocal hyperglycemia, results should be confirmed by repeat testing. In a patient with classic symptoms of hyperglycemia or hyperglycemic crisis, random plasma glucose results greater than or equal to 200 mg/dL meet the criteria for diagnosis of diabetes. Reference: Standards of Medical Care in Diabetes 2016, [place] [employer]. Diabetes Care. 2016.39(Suppl 1). Interpretation and review of laboratory results Abnormal [facility] Potassium [Moles/Vol] 4.4 mmol/L 3.7 - 5.1 mmol/L [facility] Sodium [Moles/Vol] 137 mmol/L 136 - 144 mmol/L [facility] Urea nitrogen [Mass/Vol] 20 mg/dL 9 - 24 mg/dL [facility] Basic metabolic 2000 panelon 02-19-2024 Anion gap [Moles/Vol] 5 mmol/L Low 9-18 [facility] Comment on above: Order Comment: Speci men Type: BLOOD SPECIMENOrdering Facility: [facility] Address: [address] [place] [address] Performed By: #### 2 4321-2 ####[facility] LABCLIA [id number] [place] [address] Calcium [Mass/Vol] 8.3 mg/dL Low 8.5-10.2 [facility] Comment on above: Order Comment: Speci men Type: BLOOD SPECIMENOrdering Facility: [facility] Address: [address] [place] [address] Performed By: #### 2 4321-2 ####[facility] LABCLIA [id number] [place] [address] Chloride [Moles/Vol] 107 mmol/L High 97-105 [facility] Comment on above: Order Comment: Speci men Type: BLOOD SPECIMENOrdering Facility: [facility] Address: [address] [place] [address] Performed By: #### 2 4321-2 ####[facility] LABCLIA [id number] [place] [address] CO2 [Moles/Vol] 25 mmol/L Normal 22-30 [facility] Comment on above: Order Comment: Speci men Type: BLOOD SPECIMENOrdering Facility: [facility] Address: [address] [place] [address] Performed By: #### 2 4321-2 ####[facility] LABCLIA [id number] [place] [address] Creatinine [Mass/Vol] 0.90 mg/dL Normal 0.73-1.22 [facility] Comment on above: Order Comment: Speci men Type: BLOOD SPECIMENOrdering Facility: [facility] Address: [address] [place] [address] Performed By: #### 2 4321-2 ####[facility] LABCLIA [id number] [place] [address] Creatinine and Glomerular filtration rate.predicted panel (S/P/Bld) 83 mL/min/1.73m??? Normal >=60 [facility] Comment on above: Order Comment: Carli arthur Type: BLOOD SPECIMENOrdering Facility: [facility] Address: [address] [place] [address] Result Comment: Cristina mated Glomerular Filtration Rate (eGFR) is calculated using the 2020 CKD-EPI creatinine equation. This equation utilizes serum creatinine, sex, and age as parameters. The creatinine assay has traceable calibration to isotope dilution-mass spectrometry. Refer to KDIGO guidelines for clinical interpretation. In patients with unstable renal function, e.g. those with acute kidney injury, the eGFR may not accurately reflect actual GFR. Performed By: #### 2 4321-2 ####[facility] LABCLIA [id number] [place] [address] Glucose [Mass/Vol] 114 mg/dL High 74-99 [facility] Comment on above: Order Comment: Carli arthur Type: BLOOD SPECIMENOrdering Facility: [facility] Address: [address] [place] [address] Result Comment: The [place] [employer] (ADA) provides guidance for cutoff values for fasting glucose and random glucose. The ADA defines fasting as no caloric intake for at least 8 hours. Fasting plasma glucose results between 100 to 125 mg/dL indicate increased risk for diabetes (prediabetes).Fasting plasma glucose results greater than or equal to 126 mg/dL meet the criteria for diagnosis of diabetes. In the absence of unequivocal hyperglycemia, results should be confirmed by repeat testing. In a patient with classic symptoms of hyperglycemia or hyperglycemic crisis, random plasma glucose results greater than or equal to 200 mg/dL meet the criteria for diagnosis of diabetes.Reference: Standards of Medical Care in Diabetes 2016, [place] [employer]. Diabetes Care. 2016.39(Suppl 1). Performed By: #### 2 4321-2 ####[facility] LABCLIA [id number] [place] [address] Potassium [Moles/Vol] 4.4 mmol/L Normal 3.7-5.1 [facility] Comment on above: Order Comment: Speci men Type: BLOOD SPECIMENOrdering Facility: [facility] Address: [address] [place] [address] Performed By: #### 2 4321-2 ####[facility] LABCLIA [id number] [place] [address] Sodium [Moles/Vol] 137 mmol/L Normal 136-144 [facility] Comment on above: Order Comment: Speci men Type: BLOOD SPECIMENOrdering Facility: [facility] Address: [address] [place] [address] Performed By: #### 2 4321-2 ####[facility] LABCLIA [id number] [place] [address] Urea nitrogen [Mass/Vol] 20 mg/dL Normal 9-24 [facility] Comment on above: Order Comment: Speci men Type: BLOOD SPECIMENOrdering Facility: [facility] Address: [address] [place] [address] Performed By: #### 2 4321-2 ####[facility] LABCLIA [id number] [place] [address] Basophils Auto (Bld) [#/Vol] on 02-19-2024 Basophils (Bld) [#/Vol] 10*3/uL <0.11 F [facility] Basophils/100 WBC Auto (Bld) on 02-19-2024 Basophils/100 WBC (Bld) 0.5 % [facility] Blood manual differential co mment interpretation narrativeon 02-19-2024 Manual differential comment Joshua (Bld) [Interp] Auto [facility] CBC W Auto Differential pane l (Bld)on 02-19-2024 Basophils (Bld) [#/Vol] NINF [facility] Basophils/100 WBC (Bld) 0.5 % C [facility] Differential cell count method Nom (Bld) Auto [facility] Eosinophils (Bld) [#/Vol] 0.17 10*3/uL [facility] Eosinophils/100 WBC (Bld) 3.9 % [facility] Erythrocyte distribution width (RBC) [Ratio] 13.8 % 11.5 - 15.0 % [facility] Hematocrit (Bld) [Volume fraction] 35.3 % Low 39.0 - 51.0 % [facility] Hemoglobin (Bld) [Mass/Vol] 11.4 g/dL Low 13.0 - 17.0 g/dL [facility] Immature granulocytes (Bld) [#/Vol] [facility] Immature granulocytes/100 WBC (Bld) 0.2 % [facility] Interpretation and review of laboratory results Abnormal [facility] Lymphocytes (Bld) [#/Vol] 0.76 10*3/uL Low [facility] Lymphocytes/100 WBC (Bld) 17.3 % [facility] MCH (RBC) [Entitic mass] 29.8 pg 26.0 - 34.0 pg [facility] MCHC (RBC) [Mass/Vol] 32.3 g/dL 30.5 - 36.0 g/dL [facility] MCV (RBC) [Entitic vol] 92.4 fL 80.0 - 100.0 fL [facility] Monocytes (Bld) [#/Vol] 0.60 10*3/uL [facility] Monocytes/100 WBC (Bld) 13.6 % C [facility] Neutrophils (Bld) [#/Vol] 2.84 10*3/uL [facility] Neutrophils/100 WBC (Bld) 64.5 % [facility] Nucleated RBC (Bld) [#/Vol] [facility] Nucleated RBC/100 WBC (Bld) [Ratio] 0.0 % /100 WBC [facility] Platelet mean volume (Bld) [Entitic vol] 8.7 fL Low 9.0 - 12.7 fL [facility] Platelets (Bld) [#/Vol] 153 10*3/uL [facility] RBC (Bld) [#/Vol] 3.82 10*6/uL Low 4.20 - 6.0 0 m/uL [facility] WBC (Bld) [#/Vol] 4.40 10*3/uL [facility] Basophils (Bld) [#/Vol] 10*3/uL Normal <0.11 C [facility] Comment on above: Order Comment: Speci men Type: BLOOD SPECIMENOrdering Facility: [facility] Address: [address] [place] [address] Performed By: #### 5 7021-8 ####[facility] LABCLIA [id number] [place] [address] Basophils/100 WBC (Bld) 0.5 % Normal [facility] Comment on above: Order Comment: Speci men Type: BLOOD SPECIMENOrdering Facility: [facility] Address: [address] [place] [address] Performed By: #### 5 7021-8 ####[facility] LABCLIA [id number] [place] [address] Differential cell count method Nom (Bld) Auto Normal [facility] Comment on above: Order Comment: Speci men Type: BLOOD SPECIMENOrdering Facility: [facility] Address: [address] [place] [address] Performed By: #### 5 7021-8 ####[facility] LABCLIA [id number] [place] [address] Eosinophils (Bld) [#/Vol] 0.17 10*3/uL Normal <0.46 [facility] Comment on above: Order Comment: Speci men Type: BLOOD SPECIMENOrdering Facility: [facility] Address: [address] [place] [address] Performed By: #### 5 7021-8 ####[facility] LABCLIA [id number] [place] [address] Eosinophils/100 WBC (Bld) 3.9 % Normal [facility] Comment on above: Order Comment: Speci men Type: BLOOD SPECIMENOrdering Facility: [facility] Address: [address] [place] [address] Performed By: #### 5 7021-8 ####[facility] LABCLIA [id number] [place] [address] Erythrocyte distribution width (RBC) [Ratio] 13.8 % Normal 11.5-15.0 [facility] Comment on above: Order Comment: Speci men Type: BLOOD SPECIMENOrdering Facility: [facility] Address: [address] [place] [address] Performed By: #### 5 7021-8 ####[facility] LABCLIA [id number] [place] [address] Hematocrit (Bld) [Volume fraction] 35.3 % Low 39.0-51.0 [facility] Comment on above: Order Comment: Speci men Type: BLOOD SPECIMENOrdering Facility: [facility] Address: [address] [place] [address] Performed By: #### 5 7021-8 ####[facility] LABCLIA [id number] [place] [address] Hemoglobin (Bld) [Mass/Vol] 11.4 g/dL Low 13.0-17.0 [facility] Comment on above: Order Comment: Speci men Type: BLOOD SPECIMENOrdering Facility: [facility] Address: [address] [place] [address] Performed By: #### 5 7021-8 ####[facility] LABCLIA [id number] [place] [address] Immature granulocytes (Bld) [#/Vol] 10*3/uL Normal <0.10 [facility] Comment on above: Order Comment: Speci men Type: BLOOD SPECIMENOrdering Facility: [facility] Address: [address] [place] [address] Performed By: #### 5 7021-8 ####[facility] LABCLIA [id number] [place] [address] Immature granulocytes/100 WBC (Bld) 0.2 % Normal [facility] Comment on above: Order Comment: Speci men Type: BLOOD SPECIMENOrdering Facility: [facility] Address: [address] [place] [address] Performed By: #### 5 7021-8 ####[facility] LABCLIA [id number] [place] [address] Lymphocytes (Bld) [#/Vol] 0.76 10*3/uL Low 1.00-4.00 [facility] Comment on above: Order Comment: Speci men Type: BLOOD SPECIMENOrdering Facility: [facility] Address: [address] [place] [address] Performed By: #### 5 7021-8 ####[facility] LABCLIA [id number] [place] [address] Lymphocytes/100 WBC (Bld) 17.3 % Normal [facility] Comment on above: Order Comment: Speci men Type: BLOOD SPECIMENOrdering Facility: [facility] Address: [address] [place] [address] Performed By: #### 5 7021-8 ####[facility] LABCLIA [id number] [place] [address] MCH (RBC) [Entitic mass] 29.8 pg Normal 26.0-34.0 [facility] Comment on above: Order Comment: Speci men Type: BLOOD SPECIMENOrdering Facility: [facility] Address: [address] [place] [address] Performed By: #### 5 7021-8 ####[facility] LABCLIA [id number] [place] [address] MCHC (RBC) [Mass/Vol] 32.3 g/dL Normal 30.5-36.0 [facility] Comment on above: Order Comment: Speci men Type: BLOOD SPECIMENOrdering Facility: [facility] Address: [address] [place] [address] Performed By: #### 5 7021-8 ####[facility] LABCLIA [id number] [place] [address] MCV (RBC) [Entitic vol] 92.4 fL Normal 80.0-100.0 C [facility] Comment on above: Order Comment: Speci men Type: BLOOD SPECIMENOrdering Facility: [facility] Address: [address] [place], [place] [address] Performed By: #### 5 7021-8 ####[facility] LABCLIA [id number] [place] [address] Monocytes (Bld) [#/Vol] 0.60 10*3/uL Normal <0.87 [facility] Comment on above: Order Comment: Speci men Type: BLOOD SPECIMENOrdering Facility: [facility] Address: [address] [place] [address] Performed By: #### 5 7021-8 ####[facility] LABCLIA [id number] [place] [address] Monocytes/100 WBC (Bld) 13.6 % Normal C [facility] Comment on above: Order Comment: Speci men Type: BLOOD SPECIMENOrdering Facility: [facility] Address: [address] [place] [address] Performed By: #### 5 7021-8 ####[facility] LABCLIA [id number] [place] [address] Neutrophils (Bld) [#/Vol] 2.84 10*3/uL Normal 1.45-7.50 [facility] Comment on above: Order Comment: Speci men Type: BLOOD SPECIMENOrdering Facility: [facility] Address: [address] [place] [address] Performed By: #### 5 7021-8 ####[facility] LABCLIA [id number] [place] [address] Neutrophils/100 WBC (Bld) 64.5 % Normal [facility] Comment on above: Order Comment: Speci men Type: BLOOD SPECIMENOrdering Facility: [facility] Address: [address] [place], [place] [address] Performed By: #### 5 7021-8 ####[facility] LABCLIA [id number] [place] [address] Nucleated RBC (Bld) [#/Vol] 10*3/uL Normal <0.01 [facility] Comment on above: Order Comment: Speci men Type: BLOOD SPECIMENOrdering Facility: [facility] Address: [address] [place] [address] Performed By: #### 5 7021-8 ####[facility] LABCLIA [id number] [place] [address] Nucleated RBC/100 WBC (Bld) [Ratio] 0.0 /[address] [facility] Comment on above: Order Comment: Speci men Type: BLOOD SPECIMENOrdering Facility: [facility] Address: [address] [place] [address] Performed By: #### 5 7021-8 ####[facility] LABCLIA [id number] [place] [address] Platelet mean volume (Bld) [Entitic vol] 8.7 fL Low 9.0-12.7 [facility] Comment on above: Order Comment: Speci men Type: BLOOD SPECIMENOrdering Facility: [facility] Address: [address] [place] [address] Performed By: #### 5 7021-8 ####[facility] LABCLIA [id number] [place] [address] Platelets (Bld) [#/Vol] 153 10*3/uL Normal 150-400 [facility] Comment on above: Order Comment: Speci men Type: BLOOD SPECIMENOrdering Facility: [facility] Address: [address] [place] [address] Performed By: #### 5 7021-8 ####[facility] LABCLIA [id number] [place] [address] RBC (Bld) [#/Vol] 3.82 10*6/uL Low 4.20-6.00 [facility] Comment on above: Order Comment: Speci men Type: BLOOD SPECIMENOrdering Facility: [facility] Address: [address] [place], [place] [address] Performed By: #### 5 7021-8 ####[facility] LABCLIA [id number] [place] [address] WBC (Bld) [#/Vol] 4.40 10*3/uL Normal 3.70-11.00 [facility] Comment on above: Order Comment: Speci men Type: BLOOD SPECIMENOrdering Facility: [facility] Address: [address] [place] [address] Performed By: #### 5 7021-8 ####[facility] LABCLIA [id number] [place] [address] CNNURSEon 02-19-[address] [facility] CNPNon 02-19-[address] [facility] Eosinophils/100 WBC Auto (Bl d)on 02-19-2024 Eosinophils/100 WBC (Bld) 3.9 % [facility] Erythrocyte distribution wid th Auto (RBC) [Ratio]on 02-19-2024 Erythrocyte distribution width (RBC) [Ratio] 13.8 % 11.5-15.0 [facility] Hematocrit Auto (Bld) [Volum e fraction]on 02-19-2024 Hematocrit (Bld) [Volume fraction] 35.3 % 39.0-51.0 [facility] Hemoglobin [Mass/volume] in Bloodon 02-19-2024 Hemoglobin (Bld) [Mass/Vol] 11.4 g/dL 13.0-17.0 [facility] Laboratory - Chemistry and C hemistry - challengeon 02-19-2024 Calcium [Mass/Vol] 8.3 mg/dL 8.5-10.2 [facility] Chloride [Moles/Vol] 107 mmol/L 97-105 [facility] CO2 [Moles/Vol] 25 mmol/L 22-30 [facility] Creatinine [Mass/Vol] 0.90 mg/dL 0.73-1.22 [facility] Glucose [Mass/Vol] 114 mg/dL 74-99 [facility] Comment on above: The [place] [employer] (ADA) provides guidance for cutoff values for fasting glucose and random glucose. The ADA defines fasting as no caloric intake for at least 8 hours. Fasting plasma glucose results between 100 to 125 mg/dL indicate increased risk for diabetes (prediabetes).Fasting plasma glucose results greater than or equal to 126 mg/dL meet the criteria for diagnosis of diabetes. In the absence of unequivocal hyperglycemia, results should be confirmed by repeat testing. In a patient with classic symptoms of hyperglycemia or hyperglycemic crisis, random plasma glucose results greater than or equal to 200 mg/dL meet the criteria for diagnosis of diabetes.Reference: Standards of Medical Care in Diabetes 2016, [place] [employer]. Diabetes Care. 2016.39(Suppl 1). Potassium [Moles/Vol] 4.4 mmol/L 3.7-5.1 [facility] Sodium [Moles/Vol] 137 mmol/L 136-144 [facility] Urea nitrogen [Mass/Vol] 20 mg/dL 9-24 [facility] Laboratory - Hematology and Cell countson 02-19-2024 Eosinophils (Bld) [#/Vol] 0.17 10*3/uL <0.46 [facility] Immature granulocytes/100 WBC (Bld) 0.2 % [facility] Leukocytes [#/volume] correc ramona for nucleated erythrocytes in Blood by Automated counon 02-19-2024 WBC corrected for nucl RBC Auto (Bld) [#/Vol] 4.40 k/uL 3.70-11.00 [facility] Lymphocytes Auto (Bld) [#/Vo l]on 02-19-2024 Lymphocytes (Bld) [#/Vol] 0.76 10*3/uL 1.00-4.00 [facility] Lymphocytes/100 WBC Auto (Bl d)on 02-19-2024 Lymphocytes/100 WBC (Bld) 17.3 % [facility] MCH Auto (RBC) [Entitic mass ]on 02-19-2024 MCH (RBC) [Entitic mass] 29.8 pg 26.0-34.0 [facility] MCHC Auto (RBC) [Mass/Vol]on 02-19-2024 MCHC (RBC) [Mass/Vol] 32.3 g/dL 30.5-36.0 [facility] MCV Auto (RBC) [Entitic vol] on 02-19-2024 MCV (RBC) [Entitic vol] 92.4 fL 80.0-100.0 [facility] Monocytes Auto (Bld) [#/Vol] on 02-19-2024 Monocytes (Bld) [#/Vol] 0.60 10*3/uL <0.87 [facility] Monocytes/100 WBC Auto (Bld) on 02-19-2024 Monocytes/100 WBC (Bld) 13.6 % [facility] Neutrophils Auto (Bld) [#/Vo l]on 02-19-2024 Neutrophils (Bld) [#/Vol] 2.84 10*3/uL 1.45-7.50 [facility] Neutrophils/100 WBC Auto (Bl d)on 02-19-2024 Neutrophils/100 WBC (Bld) 64.5 % [facility] No Panel Informationon 02-18 Estimated GFR (CKD-EPI) 83 mL/min/1.73m??? >=60 [facility] Comment on above: Estimated Glomerular Filtration Rate (eGFR) is calculated using the 2020 CKD-EPI creatinine equation. This equation utilizes serum creatinine, sex, and age as parameters. The creatinine assay has traceable calibration to isotope dilution-mass spectrometry. Refer to KDIGO guidelines for clinical interpretation. In patients with unstable renal function, e.g. those with acute kidney injury, the eGFR may not accurately reflect actual GFR. Immature Granulocyte # (Auto) <0.03 k/uL <0.10 [facility] Nucleated RBC Auto (Bld) [#/ Vol]on 02-19-2024 Nucleated RBC (Bld) [#/Vol] 10*3/uL <0.01 [facility] Nucleated erythrocytes [Pres ence] in Blood by Automated counton 02-19-2024 Nucleated RBC Auto Ql (Bld) 0.0 /100{WBC} [facility] Platelet mean volume Auto (B ld) [Entitic vol]on 02-19-2024 Platelet mean volume (Bld) [Entitic vol] 8.7 fL 9.0-12.7 [facility] Platelets Auto (Bld) [#/Vol] on 02-19-2024 Platelets (Bld) [#/Vol] 153 10*3/uL 150-400 [facility] RBC Auto (Bld) [#/Vol]on RBC (Bld) [#/Vol] 3.82 10*6/uL 4.20-6.00 [facility] Serum or plasma anion gap de terminationon 02-19-2024 Anion gap [Moles/Vol] 5 mmol/L 9-18 [facility] Urine culture routineOrdered By: Darryl Chaparro on 02-19-2024 Bacteria identified Cx Nom (U) Abnormal [facility] Comment on above: Performed By: #### 6 30-4 ####[facility] LABCLIA [id number] [place] [address] [place] CNOVon 02-18-[address] [facility] CNPNon 02-18-[address] [facility] CNOVon 02-17-[address] [facility] Basophils Auto (Bld) [#/Vol] on 02-12-2024 Basophils (Bld) [#/Vol] 10*3/uL <0.11 [facility] Basophils/100 WBC Auto (Bld) on 02-12-2024 Basophils/100 WBC (Bld) 0.4 % [facility] Blood manual differential co mment interpretation narrativeon 02-12-2024 Manual differential comment Joshua (Bld) [Interp] Auto [facility] CBC W Auto Differential pane l (Bld)on 02-12-2024 Basophils (Bld) [#/Vol] 10*3/uL Normal <0.11 [facility] Comment on above: Order Comment: Speci men Type: BLOOD SPECIMENOrdering Facility: [facility] Address: [address] [place] [address] Performed By: #### 5 7021-8 ####[facility] LABCLIA [id number] [place] [address] Basophils/100 WBC (Bld) 0.4 % Normal [facility] Comment on above: Order Comment: Speci men Type: BLOOD SPECIMENOrdering Facility: [facility] Address: [address] [place] [address] Performed By: #### 5 7021-8 ####[facility] LABCLIA [id number] [place] [address] Differential cell count method Nom (Bld) Auto Normal [facility] Comment on above: Order Comment: Speci men Type: BLOOD SPECIMENOrdering Facility: [facility] Address: [address] [place] [address] Performed By: #### 5 7021-8 ####[facility] LABCLIA [id number] [place] [address] Eosinophils (Bld) [#/Vol] 0.25 10*3/uL Normal <0.46 [facility] Comment on above: Order Comment: Speci men Type: BLOOD SPECIMENOrdering Facility: [facility] Address: [address] [place] [address] Performed By: #### 5 7021-8 ####[facility] LABCLIA [id number] [place] [address] Eosinophils/100 WBC (Bld) 4.4 % Normal [facility] Comment on above: Order Comment: Speci men Type: BLOOD SPECIMENOrdering Facility: [facility] Address: [address] [place] [address] Performed By: #### 5 7021-8 ####[facility] LABCLIA [id number] [place] [address] Erythrocyte distribution width (RBC) [Ratio] 13.2 % Normal 11.5-15.0 [facility] Comment on above: Order Comment: Speci men Type: BLOOD SPECIMENOrdering Facility: [facility] Address: [address] [place] [address] Performed By: #### 5 7021-8 ####[facility] LABCLIA [id number] [place] [address] Hematocrit (Bld) [Volume fraction] 40.8 % Normal 39.0-51.0 [facility] Comment on above: Order Comment: Speci men Type: BLOOD SPECIMENOrdering Facility: [facility] Address: [address] [place] [address] Performed By: #### 5 7021-8 ####[facility] LABCLIA [id number] [place] [address] Hemoglobin (Bld) [Mass/Vol] 13.1 g/dL Normal 13.0-17.0 [facility] Comment on above: Order Comment: Speci men Type: BLOOD SPECIMENOrdering Facility: [facility] Address: [address] [place] [address] Performed By: #### 5 7021-8 ####[facility] LABCLIA [id number] [place] [address] Immature granulocytes (Bld) [#/Vol] 0.03 10*3/uL Normal <0.10 [facility] Comment on above: Order Comment: Speci men Type: BLOOD SPECIMENOrdering Facility: [facility] Address: [address] [place] [address] Performed By: #### 5 7021-8 ####[facility] LABCLIA [id number] [place] [address] Immature granulocytes/100 WBC (Bld) 0.5 % Normal [facility] Comment on above: Order Comment: Speci men Type: BLOOD SPECIMENOrdering Facility: [facility] Address: [address] [place] [address] Performed By: #### 5 7021-8 ####[facility] LABCLIA [id number] [place] [address] Lymphocytes (Bld) [#/Vol] 0.91 10*3/uL Low 1.00-4.00 [facility] Comment on above: Order Comment: Speci men Type: BLOOD SPECIMENOrdering Facility: [facility] Address: [address] [place] [address] Performed By: #### 5 7021-8 ####[facility] LABCLIA [id number] [place] [address] Lymphocytes/100 WBC (Bld) 16.1 % Normal [facility] Comment on above: Order Comment: Speci men Type: BLOOD SPECIMENOrdering Facility: [facility] Address: [address] [place] [address] Performed By: #### 5 7021-8 ####[facility] LABCLIA [id number] [place] [address] MCH (RBC) [Entitic mass] 29.4 pg Normal 26.0-34.0 [facility] Comment on above: Order Comment: Speci men Type: BLOOD SPECIMENOrdering Facility: [facility] Address: [address] [place] [address] Performed By: #### 5 7021-8 ####[facility] LABCLIA [id number] [place] [address] MCHC (RBC) [Mass/Vol] 32.1 g/dL Normal 30.5-36.0 [facility] Comment on above: Order Comment: Speci men Type: BLOOD SPECIMENOrdering Facility: [facility] Address: [address] [place] [address] Performed By: #### 5 7021-8 ####[facility] LABCLIA [id number] [place] [address] MCV (RBC) [Entitic vol] 91.5 fL Normal 80.0-100.0 C [facility] Comment on above: Order Comment: Speci men Type: BLOOD SPECIMENOrdering Facility: [facility] Address: [address] [place] [address] Performed By: #### 5 7021-8 ####[facility] LABCLIA [id number] [place] [address] Monocytes (Bld) [#/Vol] 0.74 10*3/uL Normal <0.87 [facility] Comment on above: Order Comment: Speci men Type: BLOOD SPECIMENOrdering Facility: [facility] Address: [address] [place] [address] Performed By: #### 5 7021-8 ####[facility] LABCLIA [id number] [place] [address] Monocytes/100 WBC (Bld) 13.1 % Normal [facility] Comment on above: Order Comment: Speci men Type: BLOOD SPECIMENOrdering Facility: [facility] Address: [address] [place] [address] Performed By: #### 5 7021-8 ####[facility] LABCLIA [id number] [place] [address] Neutrophils (Bld) [#/Vol] 3.69 10*3/uL Normal 1.45-7.50 [facility] Comment on above: Order Comment: Speci men Type: BLOOD SPECIMENOrdering Facility: [facility] Address: [address] [place] [address] Performed By: #### 5 7021-8 ####[facility] LABCLIA [id number] [place] [address] Neutrophils/100 WBC (Bld) 65.5 % Normal [facility] Comment on above: Order Comment: Speci men Type: BLOOD SPECIMENOrdering Facility: [facility] Address: [address] [place] [address] Performed By: #### 5 7021-8 ####[facility] LABCLIA [id number] [place] [address] Nucleated RBC (Bld) [#/Vol] 10*3/uL Normal <0.01 [facility] Comment on above: Order Comment: Speci men Type: BLOOD SPECIMENOrdering Facility: [facility] Address: [address] [place] [address] Performed By: #### 5 7021-8 ####[facility] LABCLIA [id number] [place] [address] Nucleated RBC/100 WBC (Bld) [Ratio] 0.0 /[address] [facility] Comment on above: Order Comment: Speci men Type: BLOOD SPECIMENOrdering Facility: [facility] Address: [address] [place] [address] Performed By: #### 5 7021-8 ####[facility] LABCLIA [id number] [place] [address] Platelet mean volume (Bld) [Entitic vol] 8.7 fL Low 9.0-12.7 [facility] Comment on above: Order Comment: Speci men Type: BLOOD SPECIMENOrdering Facility: [facility] Address: [address] [place] [address] Performed By: #### 5 7021-8 ####[facility] LABCLIA [id number] [place] [address] Platelets (Bld) [#/Vol] 188 10*3/uL Normal 150-400 [facility] Comment on above: Order Comment: Speci men Type: BLOOD SPECIMENOrdering Facility: [facility] Address: [address] [place] [address] Performed By: #### 5 7021-8 ####[facility] LABCLIA [id number] [place] [address] RBC (Bld) [#/Vol] 4.46 10*6/uL Normal 4.20-6.00 [facility] Comment on above: Order Comment: Speci men Type: BLOOD SPECIMENOrdering Facility: [facility] Address: [address] [place] [address] Performed By: #### 5 7021-8 ####[facility] LABCLIA [id number] [place] [address] WBC (Bld) [#/Vol] 5.64 10*3/uL Normal 3.70-11.00 [facility] Comment on above: Order Comment: Speci men Type: BLOOD SPECIMENOrdering Facility: [facility] Address: [address] [place] [address] Performed By: #### 5 7021-8 ####[facility] LABCLIA [id number] [place] [address] CNOVSPon 02-12-[address] [facility] CNPNon 02-12-[address] [facility] Comprehensive metabolic 2000 panelon 02-12-2024 Albumin [Mass/Vol] 3.9 g/dL Normal 3.9-4.9 [facility] Comment on above: Order Comment: Speci men Type: BLOOD SPECIMENOrdering Facility: [facility] Address: [address] [place] [address] Performed By: #### 2 4323-8 ####[facility] LABCLIA [id number] [place] [address] ALP [Catalytic activity/Vol] 62 U/L Normal 38-113 [facility] Comment on above: Order Comment: Speci men Type: BLOOD SPECIMENOrdering Facility: [facility] Address: [address] [place] [address] Performed By: #### 2 4323-8 ####[facility] LABCLIA [id number] [place] [address] ALT [Catalytic activity/Vol] 18 U/L Normal 10-54 [facility] Comment on above: Order Comment: Speci men Type: BLOOD SPECIMENOrdering Facility: [facility] Address: [address] [place] [address] Performed By: #### 2 4323-8 ####[facility] LABCLIA [id number] [place] [address] Anion gap [Moles/Vol] 11 mmol/L Normal 9-18 [facility] Comment on above: Order Comment: Speci men Type: BLOOD SPECIMENOrdering Facility: [facility] Address: [address] [place] [address] Performed By: #### 2 4323-8 ####[facility] LABCLIA [id number] [place] [address] AST [Catalytic activity/Vol] 14 U/L Normal 14-40 [facility] Comment on above: Order Comment: Speci men Type: BLOOD SPECIMENOrdering Facility: [facility] Address: [address] [place] [address] Performed By: #### 2 4323-8 ####[facility] LABCLIA [id number] [place] [address] Bilirubin [Mass/Vol] 0.3 mg/dL Normal 0.2-1.3 [facility] Comment on above: Order Comment: Speci men Type: BLOOD SPECIMENOrdering Facility: [facility] Address: [address] [place] [address] Performed By: #### 2 4323-8 ####[facility] LABCLIA [id number] [place] [address] Calcium [Mass/Vol] 9.7 mg/dL Normal 8.5-10.2 [facility] Comment on above: Order Comment: Speci men Type: BLOOD SPECIMENOrdering Facility: [facility] Address: [address] [place] [address] Performed By: #### 2 4323-8 ####[facility] LABCLIA [id number] [place] [address] Chloride [Moles/Vol] 105 mmol/L Normal 97-105 [facility] Comment on above: Order Comment: Speci men Type: BLOOD SPECIMENOrdering Facility: [facility] Address: [address] [place] [address] Performed By: #### 2 4323-8 ####[facility] LABCLIA [id number] [place] [address] CO2 [Moles/Vol] 26 mmol/L Normal 22-30 [facility] Comment on above: Order Comment: Speci men Type: BLOOD SPECIMENOrdering Facility: [facility] Address: [address] [place] [address] Performed By: #### 2 4323-8 ####[facility] LABCLIA [id number] [place] [address] Creatinine [Mass/Vol] 1.01 mg/dL Normal 0.73-1.22 [facility] Comment on above: Order Comment: Speci men Type: BLOOD SPECIMENOrdering Facility: [facility] Address: [address] [place] [address] Performed By: #### 2 4323-8 ####[facility] LABCLIA [id number] [place] [address] Creatinine and Glomerular filtration rate.predicted panel (S/P/Bld) 72 mL/min/1.73m??? Normal >=60 [facility] Comment on above: Order Comment: Speci men Type: BLOOD SPECIMENOrdering Facility: [facility] Address: [address] [place] [address] Result Comment: Cristina mated Glomerular Filtration Rate (eGFR) is calculated using the 2020 CKD-EPI creatinine equation. This equation utilizes serum creatinine, sex, and age as parameters. The creatinine assay has traceable calibration to isotope dilution-mass spectrometry. Refer to KDIGO guidelines for clinical interpretation. In patients with unstable renal function, e.g. those with acute kidney injury, the eGFR may not accurately reflect actual GFR. Performed By: #### 2 4323-8 ####[facility] LABCLIA [id number] [place] [address] Glucose [Mass/Vol] 84 mg/dL Normal 74-99 [facility] Comment on above: Order Comment: Speci men Type: BLOOD SPECIMENOrdering Facility: [facility] Address: [address] [place] [address] Result Comment: The [place] [employer] (ADA) provides guidance for cutoff values for fasting glucose and random glucose. The ADA defines fasting as no caloric intake for at least 8 hours. Fasting plasma glucose results between 100 to 125 mg/dL indicate increased risk for diabetes (prediabetes).Fasting plasma glucose results greater than or equal to 126 mg/dL meet the criteria for diagnosis of diabetes. In the absence of unequivocal hyperglycemia, results should be confirmed by repeat testing. In a patient with classic symptoms of hyperglycemia or hyperglycemic crisis, random plasma glucose results greater than or equal to 200 mg/dL meet the criteria for diagnosis of diabetes.Reference: Standards of Medical Care in Diabetes 2016, [place] [employer]. Diabetes Care. 2016.39(Suppl 1). Performed By: #### 2 4323-8 ####[facility] LABCLIA [id number] [place] [address] Potassium [Moles/Vol] 4.8 mmol/L Normal 3.7-5.1 [facility] Comment on above: Order Comment: Speci men Type: BLOOD SPECIMENOrdering Facility: [facility] Address: [address] [place] [address] Performed By: #### 2 4323-8 ####[facility] LABCLIA [id number] [place] [address] Protein [Mass/Vol] 6.7 g/dL Normal 6.3-8.0 [facility] Comment on above: Order Comment: Speci men Type: BLOOD SPECIMENOrdering Facility: [facility] Address: [address] [place] [address] Performed By: #### 2 4323-8 ####[facility] LABCLIA [id number] [place] [address] Sodium [Moles/Vol] 142 mmol/L Normal 136-144 [facility] Comment on above: Order Comment: Speci men Type: BLOOD SPECIMENOrdering Facility: [facility] Address: [address] [place] [address] Performed By: #### 2 4323-8 ####[facility] LABCLIA [id number] [place] [address] Urea nitrogen [Mass/Vol] 23 mg/dL Normal 9-24 [facility] Comment on above: Order Comment: Speci men Type: BLOOD SPECIMENOrdering Facility: [facility] Address: [address] [place] [address] Performed By: #### 2 4323-8 ####[facility] LABCLIA [id number] [place] [address] Eosinophils/100 WBC Auto (Bl d)on 02-12-2024 Eosinophils/100 WBC (Bld) 4.4 % [facility] Erythrocyte distribution wid th Auto (RBC) [Ratio]on 02-12-2024 Erythrocyte distribution width (RBC) [Ratio] 13.2 % 11.5-15.0 [facility] Hematocrit Auto (Bld) [Volum e fraction]on 02-12-2024 Hematocrit (Bld) [Volume fraction] 40.8 % 39.0-51.0 [facility] Hemoglobin [Mass/volume] in Bloodon 02-12-2024 Hemoglobin (Bld) [Mass/Vol] 13.1 g/dL 13.0-17.0 [facility] Laboratory - Chemistry and C hemistry - challengeon 02-12-2024 Albumin [Mass/Vol] 3.9 g/dL 3.9-4.9 [facility] ALP [Catalytic activity/Vol] 62 U/L 38-113 [facility] ALT [Catalytic activity/Vol] 18 U/L 10-54 [facility] AST [Catalytic activity/Vol] 14 U/L 14-40 [facility] Bilirubin [Mass/Vol] 0.3 mg/dL 0.2-1.3 [facility] Calcium [Mass/Vol] 9.7 mg/dL 8.5-10.2 [facility] Chloride [Moles/Vol] 105 mmol/L 97-105 [facility] CO2 [Moles/Vol] 26 mmol/L 22-30 [facility] Creatinine [Mass/Vol] 1.01 mg/dL 0.73-1.22 [facility] Glucose [Mass/Vol] 84 mg/dL 74-99 [facility] Comment on above: The [place] Di[employer] s Association (ADA) provides guidance for cutoff values for fasting glucose and random glucose. The ADA defines fasting as no caloric intake for at least 8 hours. Fasting plasma glucose results between 100 to 125 mg/dL indicate increased risk for diabetes (prediabetes).Fasting plasma glucose results greater than or equal to 126 mg/dL meet the criteria for diagnosis of diabetes. In the absence of unequivocal hyperglycemia, results should be confirmed by repeat testing. In a patient with classic symptoms of hyperglycemia or hyperglycemic crisis, random plasma glucose results greater than or equal to 200 mg/dL meet the criteria for diagnosis of diabetes.Reference: Standards of Medical Care in Diabetes 2016, [place] [employer]. Diabetes Care. 2016.39(Suppl 1). Potassium [Moles/Vol] 4.8 mmol/L 3.7-5.1 [facility] Sodium [Moles/Vol] 142 mmol/L 136-144 [facility] Urea nitrogen [Mass/Vol] 23 mg/dL 07-14 [facility] Laboratory - Hematology and Cell countson 02-12-2024 Eosinophils (Bld) [#/Vol] 0.25 10*3/uL <0.46 [facility] Immature granulocytes (Bld) [#/Vol] 0.03 10*3/uL <0.10 [facility] Immature granulocytes/100 WBC (Bld) 0.5 % [facility] Leukocytes [#/volume] correc ramona for nucleated erythrocytes in Blood by Automated counon 02-12-2024 WBC corrected for nucl RBC Auto (Bld) [#/Vol] 5.64 k/uL 3.70-11.00 [facility] Lymphocytes Auto (Bld) [#/Vo l]on 02-12-2024 Lymphocytes (Bld) [#/Vol] 0.91 10*3/uL 1.00-4.00 [facility] Lymphocytes/100 WBC Auto (Bl d)on 02-12-2024 Lymphocytes/100 WBC (Bld) 16.1 % [facility] MCH Auto (RBC) [Entitic mass ]on 02-12-2024 MCH (RBC) [Entitic mass] 29.4 pg 26.0-34.0 [facility] MCHC Auto (RBC) [Mass/Vol]on 02-12-2024 MCHC (RBC) [Mass/Vol] 32.1 g/dL 30.5-36.0 [facility] MCV Auto (RBC) [Entitic vol] on 02-12-2024 MCV (RBC) [Entitic vol] 91.5 fL 80.0-100.0 [facility] Monocytes Auto (Bld) [#/Vol] on 02-12-2024 Monocytes (Bld) [#/Vol] 0.74 10*3/uL <0.87 [facility] Monocytes/100 WBC Auto (Bld) on 02-12-2024 Monocytes/100 WBC (Bld) 13.1 % [facility] Neutrophils Auto (Bld) [#/Vo l]on 02-12-2024 Neutrophils (Bld) [#/Vol] 3.69 10*3/uL 1.45-7.50 [facility] Neutrophils/100 WBC Auto (Bl d)on 02-12-2024 Neutrophils/100 WBC (Bld) 65.5 % [facility] No Panel Informationon 02-11 Estimated GFR (CKD-EPI) 72 mL/min/1.73m??? >=60 [facility] Comment on above: Estimated Glomerular Filtration Rate (eGFR) is calculated using the 2020 CKD-EPI creatinine equation. This equation utilizes serum creatinine, sex, and age as parameters. The creatinine assay has traceable calibration to isotope dilution-mass spectrometry. Refer to KDIGO guidelines for clinical interpretation. In patients with unstable renal function, e.g. those with acute kidney injury, the eGFR may not accurately reflect actual GFR. Nucleated RBC Auto (Bld) [#/ Vol]on 02-12-2024 Nucleated RBC (Bld) [#/Vol] 10*3/uL <0.01 [facility] Nucleated erythrocytes [Pres ence] in Blood by Automated counton 02-12-2024 Nucleated RBC Auto Ql (Bld) 0.0 /100{WBC} [facility] Platelet mean volume Auto (B ld) [Entitic vol]on 02-12-2024 Platelet mean volume (Bld) [Entitic vol] 8.7 fL 9.0-12.7 [facility] Platelets Auto (Bld) [#/Vol] on 02-12-2024 Platelets (Bld) [#/Vol] 188 10*3/uL 150-400 [facility] Protein [Mass/volume] in Ser um or Plasmaon 02-12-2024 Protein [Mass/Vol] 6.7 g/dL 6.3-8.0 [facility] RBC Auto (Bld) [#/Vol]on RBC (Bld) [#/Vol] 4.46 10*6/uL 4.20-6.00 [facility] Serum or plasma anion gap de terminationon 02-12-2024 Anion gap [Moles/Vol] 11 mmol/L 9- [facility] Consultation Noteon 02-11-20 Consultation Note [id number] #[id number] Normal [facility] Reminderson 02-11-2024 Reminders - From: Lucero Sutherland To: EU - Recalls Dietrich; Cc: Lucero Sutherland; Sent: 11/14/2023 13:20:30 EST Show up: 01/20/2024 13:20:00 EDT Subject: cysto/fish/cytol Due Date/Time: 02/10/2024 13:20:00 EDT Reminder/Recall Patient will be due in February 2024 for 3 month cysto/fishc/ytol Patient is getting chemo and radiation for bladder cancer at [facility] cancer center Patient has appt 02/17/24.LG Normal [facility] CNOVon 02-10-[address] [facility] CNPNon 02-07-[address] [facility] Comprehensive metabolic 2000 panelon 02-06-2024 Albumin [Mass/Vol] 3.7 g/dL Low 3.9-4.9 [facility] Comment on above: Order Comment: Speci men Type: BLOOD SPECIMENOrdering Facility: [facility] Address: [address] [place] [address] [place] [address] Performed By: #### 2 4420-8 ####[facility] LABCLIA [id number] [place] [address] ALP [Catalytic activity/Vol] 59 U/L Normal 38-113 [facility] Comment on above: Order Comment: Speci men Type: BLOOD SPECIMENOrdering Facility: [facility] Address: [address] [place], [place] [address] Performed By: #### 2 4323-8 ####[facility] LABCLIA [id number] [place] [address] ALT [Catalytic activity/Vol] 28 U/L Normal 10-54 [facility] Comment on above: Order Comment: Speci men Type: BLOOD SPECIMENOrdering Facility: [facility] Address: [address] [place], [place] [address] Performed By: #### 2 4323-8 ####[facility] LABCLIA [id number] [place] [address] Anion gap [Moles/Vol] 11 mmol/L Normal 9-18 [facility] Comment on above: Order Comment: Speci men Type: BLOOD SPECIMENOrdering Facility: [facility] Address: [address] [place] [address] Performed By: #### 2 4323-8 ####[facility] LABCLIA [id number] [place] [address] AST [Catalytic activity/Vol] 26 U/L Normal 14-40 [facility] Comment on above: Order Comment: Speci men Type: BLOOD SPECIMENOrdering Facility: [facility] Address: [address] [place] [address] Performed By: #### 2 4323-8 ####[facility] LABCLIA [id number] [place] [address] Bilirubin [Mass/Vol] 0.3 mg/dL Normal 0.2-1.3 [facility] Comment on above: Order Comment: Speci men Type: BLOOD SPECIMENOrdering Facility: [facility] Address: [address] [place] [address] Performed By: #### 2 4323-8 ####[facility] LABCLIA [id number] [place] [address] Calcium [Mass/Vol] 9.5 mg/dL Normal 8.5-10.2 [facility] Comment on above: Order Comment: Speci men Type: BLOOD SPECIMENOrdering Facility: [facility] Address: [address] [place] [address] Performed By: #### 2 4323-8 ####[facility] LABCLIA [id number] [place] [address] Chloride [Moles/Vol] 108 mmol/L High 97-105 [facility] Comment on above: Order Comment: Speci men Type: BLOOD SPECIMENOrdering Facility: [facility] Address: [address] [place] [address] Performed By: #### 2 4323-8 ####[facility] LABCLIA [id number] [place] [address] CO2 [Moles/Vol] 24 mmol/L Normal 22-30 [facility] Comment on above: Order Comment: Speci men Type: BLOOD SPECIMENOrdering Facility: [facility] Address: [address] [place] [address] Performed By: #### 2 4323-8 ####[facility] LABCLIA [id number] [place] [address] Creatinine [Mass/Vol] 1.11 mg/dL Normal 0.73-1.22 [facility] Comment on above: Order Comment: Speci men Type: BLOOD SPECIMENOrdering Facility: [facility] Address: [address] [place] [address] Performed By: #### 2 4323-8 ####[facility] LABCLIA [id number] [place] [address] Creatinine and Glomerular filtration rate.predicted panel (S/P/Bld) 64 mL/min/1.73m??? Normal >=60 [facility] Comment on above: Order Comment: Carli arthur Type: BLOOD SPECIMENOrdering Facility: [facility] Address: [address] [place] [address] Result Comment: Cristina mated Glomerular Filtration Rate (eGFR) is calculated using the 2020 CKD-EPI creatinine equation. This equation utilizes serum creatinine, sex, and age as parameters. The creatinine assay has traceable calibration to isotope dilution-mass spectrometry. Refer to KDIGO guidelines for clinical interpretation. In patients with unstable renal function, e.g. those with acute kidney injury, the eGFR may not accurately reflect actual GFR. Performed By: #### 2 4323-8 ####[facility] LABCLIA [id number] [place] [address] Glucose [Mass/Vol] 113 mg/dL High 74-99 [facility] Comment on above: Order Comment: Carli arthur Type: BLOOD SPECIMENOrdering Facility: [facility] Address: [address] [place] [address] Result Comment: The [place] [employer] (ADA) provides guidance for cutoff values for fasting glucose and random glucose. The ADA defines fasting as no caloric intake for at least 8 hours. Fasting plasma glucose results between 100 to 125 mg/dL indicate increased risk for diabetes (prediabetes).Fasting plasma glucose results greater than or equal to 126 mg/dL meet the criteria for diagnosis of diabetes. In the absence of unequivocal hyperglycemia, results should be confirmed by repeat testing. In a patient with classic symptoms of hyperglycemia or hyperglycemic crisis, random plasma glucose results greater than or equal to 200 mg/dL meet the criteria for diagnosis of diabetes.Reference: Standards of Medical Care in Diabetes 2016, [place] [employer]. Diabetes Care. 2016.39(Suppl 1). Performed By: #### 2 4323-8 ####[facility] LABCLIA [id number] [place] [address] Potassium [Moles/Vol] 5.0 mmol/L Normal 3.7-5.1 [facility] Comment on above: Order Comment: Carli arthur Type: BLOOD SPECIMENOrdering Facility: [facility] Address: [address] [place] [address] Performed By: #### 2 4323-8 ####[facility] LABCLIA [id number] [place] [address] Protein [Mass/Vol] 6.3 g/dL Normal 6.3-8.0 [facility] Comment on above: Order Comment: Speci men Type: BLOOD SPECIMENOrdering Facility: [facility] Address: [address] [place] [address] Performed By: #### 2 4323-8 ####[facility] LABCLIA [id number] [place] [address] Sodium [Moles/Vol] 143 mmol/L Normal 136-144 [facility] Comment on above: Order Comment: Speci men Type: BLOOD SPECIMENOrdering Facility: [facility] Address: [address] [place] [address] Performed By: #### 2 4323-8 ####[facility] LABCLIA [id number] [place] [address] Urea nitrogen [Mass/Vol] 20 mg/dL Normal 9-24 [facility] Comment on above: Order Comment: Speci men Type: BLOOD SPECIMENOrdering Facility: [facility] Address: [address] [place] [address] Performed By: #### 2 4323-8 ####[facility] LABCLIA [id number] [place] [address] Laboratory - Chemistry and C hemistry - challengeon 02-06-2024 Albumin [Mass/Vol] 3.7 g/dL 3.9-4.9 [facility] ALP [Catalytic activity/Vol] 59 U/L 38-113 [facility] ALT [Catalytic activity/Vol] 28 U/L 10-54 [facility] AST [Catalytic activity/Vol] 26 U/L 14-40 [facility] Bilirubin [Mass/Vol] 0.3 mg/dL 0.2-1.3 [facility] Calcium [Mass/Vol] 9.5 mg/dL 8.5-10.2 [facility] Chloride [Moles/Vol] 108 mmol/L 97-105 [facility] CO2 [Moles/Vol] 24 mmol/L 22-30 [facility] Creatinine [Mass/Vol] 1.11 mg/dL 0.73-1.22 [facility] Glucose [Mass/Vol] 113 mg/dL 74-99 [facility] Comment on above: The [place] Diabete s Association (ADA) provides guidance for cutoff values for fasting glucose and random glucose. The ADA defines fasting as no caloric intake for at least 8 hours. Fasting plasma glucose results between 100 to 125 mg/dL indicate increased risk for diabetes (prediabetes).Fasting plasma glucose results greater than or equal to 126 mg/dL meet the criteria for diagnosis of diabetes. In the absence of unequivocal hyperglycemia, results should be confirmed by repeat testing. In a patient with classic symptoms of hyperglycemia or hyperglycemic crisis, random plasma glucose results greater than or equal to 200 mg/dL meet the criteria for diagnosis of diabetes.Reference: Standards of Medical Care in Diabetes 2016, [place] [employer]. Diabetes Care. 2016.39(Suppl 1). Potassium [Moles/Vol] 5.0 mmol/L 3.7-5.1 [facility] Sodium [Moles/Vol] 143 mmol/L 136-144 [facility] Urea nitrogen [Mass/Vol] 20 mg/dL 9-24 [facility] No Panel Informationon 02-05 Estimated GFR (CKD-EPI) 64 mL/min/1.73m??? >=60 [facility] Comment on above: Estimated Glomerular Filtration Rate (eGFR) is calculated using the 2020 CKD-EPI creatinine equation. This equation utilizes serum creatinine, sex, and age as parameters. The creatinine assay has traceable calibration to isotope dilution-mass spectrometry. Refer to KDIGO guidelines for clinical interpretation. In patients with unstable renal function, e.g. those with acute kidney injury, the eGFR may not accurately reflect actual GFR. Protein [Mass/volume] in Ser um or Plasmaon 02-06-2024 Protein [Mass/Vol] 6.3 g/dL 6.3-8.0 [facility] Serum or plasma anion gap de terminationon 02-06-2024 Anion gap [Moles/Vol] 11 mmol/L 9-18 [facility] CNOVSPon 02-05-[address] [facility] Basophils Auto (Bld) [#/Vol] on 02-04-2024 Basophils (Bld) [#/Vol] 0.03 10*3/uL <0.11 [facility] Basophils/100 WBC Auto (Bld) on 02-04-2024 Basophils/100 WBC (Bld) 0.5 % F [facility] Blood manual differential co mment interpretation narrativeon 02-04-2024 Manual differential comment Joshua (Bld) [Interp] Auto [facility] CBC W Auto Differential pane l (Bld)on 02-04-2024 Basophils (Bld) [#/Vol] 0.03 10*3/uL <0.11 k/uL [facility] Basophils/100 WBC (Bld) 0.5 % C [facility] Differential cell count method Nom (Bld) Auto [facility] Eosinophils (Bld) [#/Vol] 0.26 10*3/uL <0.46 k/uL [facility] Eosinophils/100 WBC (Bld) 4.0 % [facility] Erythrocyte distribution width (RBC) [Ratio] 13.2 % 11.5 - 15.0 % [facility] Hematocrit (Bld) [Volume fraction] 39.8 % 39.0 - 51.0 % [facility] Hemoglobin (Bld) [Mass/Vol] 12.8 g/dL Low 13.0 - 17.0 g/dL [facility] Immature granulocytes (Bld) [#/Vol] <0.10 k/uL [facility] Immature granulocytes/100 WBC (Bld) 0.3 % [facility] Lymphocytes (Bld) [#/Vol] 1.09 10*3/uL 1.00 - 4.00 k/uL [facility] Lymphocytes/100 WBC (Bld) 17.0 % [facility] MCH (RBC) [Entitic mass] 29.6 pg 26.0 - 34.0 pg [facility] MCHC (RBC) [Mass/Vol] 32.2 g/dL 30.5 - 36.0 g/dL [facility] MCV (RBC) [Entitic vol] 92.1 fL 80.0 - 100.0 fL [facility] Monocytes (Bld) [#/Vol] 0.99 10*3/uL High <0.87 k/uL [facility] Monocytes/100 WBC (Bld) 15.4 % C [facility] Neutrophils (Bld) [#/Vol] 4.03 10*3/uL 1.45 - 7.50 k/uL [facility] Neutrophils/100 WBC (Bld) 62.8 % [facility] Nucleated RBC (Bld) [#/Vol] <0.01 k/uL [facility] Nucleated RBC/100 WBC (Bld) [Ratio] 0.0 /100 WBC [facility] Platelet mean volume (Bld) [Entitic vol] 8.9 fL Low 9.0 - 12.7 fL [facility] Platelets (Bld) [#/Vol] 181 10*3/uL 150 - 400 k /uL [facility] RBC (Bld) [#/Vol] 4.32 10*6/uL 4.20 - 6.0 0 m/uL [facility] WBC (Bld) [#/Vol] 6.42 10*3/uL 3.70 - 11. 00 k/uL [facility] Basophils (Bld) [#/Vol] 0.03 10*3/uL Normal <0.11 [facility] Comment on above: Order Comment: Speci men Type: BLOOD SPECIMENOrdering Facility: [facility] Address: [address] [place] [address] Performed By: #### 5 7021-8 ####[facility] LABCLIA [id number] [place] [address] Basophils/100 WBC (Bld) 0.5 % Normal [facility] Comment on above: Order Comment: Speci men Type: BLOOD SPECIMENOrdering Facility: [facility] Address: [address] [place] [address] Performed By: #### 5 7021-8 ####[facility] LABCLIA [id number] [place] [address] Differential cell count method Nom (Bld) Auto Normal [facility] Comment on above: Order Comment: Speci men Type: BLOOD SPECIMENOrdering Facility: [facility] Address: [address] [place] [address] Performed By: #### 5 7021-8 ####[facility] LABCLIA [id number] [place] [address] Eosinophils (Bld) [#/Vol] 0.26 10*3/uL Normal <0.46 [facility] Comment on above: Order Comment: Speci men Type: BLOOD SPECIMENOrdering Facility: [facility] Address: [address] [place] [address] Performed By: #### 5 7021-8 ####[facility] LABCLIA [id number] [place] [address] Eosinophils/100 WBC (Bld) 4.0 % Normal [facility] Comment on above: Order Comment: Speci men Type: BLOOD SPECIMENOrdering Facility: [facility] Address: [address] [place] [address] Performed By: #### 5 7021-8 ####[facility] LABCLIA [id number] [place] [address] Erythrocyte distribution width (RBC) [Ratio] 13.2 % Normal 11.5-15.0 [facility] Comment on above: Order Comment: Speci men Type: BLOOD SPECIMENOrdering Facility: [facility] Address: [address] [place] [address] Performed By: #### 5 7021-8 ####[facility] LABCLIA [id number] [place] [address] Hematocrit (Bld) [Volume fraction] 39.8 % Normal 39.0-51.0 [facility] Comment on above: Order Comment: Speci men Type: BLOOD SPECIMENOrdering Facility: [facility] Address: [address] [place] [address] Performed By: #### 5 7021-8 ####[facility] LABCLIA [id number] [place] [address] Hemoglobin (Bld) [Mass/Vol] 12.8 g/dL Low 13.0-17.0 [facility] Comment on above: Order Comment: Speci men Type: BLOOD SPECIMENOrdering Facility: [facility] Address: [address] [place] [address] Performed By: #### 5 7021-8 ####[facility] LABCLIA [id number] [place] [address] Immature granulocytes (Bld) [#/Vol] 10*3/uL Normal <0.10 [facility] Comment on above: Order Comment: Speci men Type: BLOOD SPECIMENOrdering Facility: [facility] Address: [address] [place] [address] Performed By: #### 5 7021-8 ####[facility] LABCLIA [id number] [place] [address] Immature granulocytes/100 WBC (Bld) 0.3 % Normal [facility] Comment on above: Order Comment: Speci men Type: BLOOD SPECIMENOrdering Facility: [facility] Address: [address] [place] [address] Performed By: #### 5 7021-8 ####[facility] LABCLIA [id number] [place] [address] Lymphocytes (Bld) [#/Vol] 1.09 10*3/uL Normal 1.00-4.00 [facility] Comment on above: Order Comment: Speci men Type: BLOOD SPECIMENOrdering Facility: [facility] Address: [address] [place] [address] Performed By: #### 5 7021-8 ####[facility] LABCLIA [id number] [place] [address] Lymphocytes/100 WBC (Bld) 17.0 % Normal [facility] Comment on above: Order Comment: Speci men Type: BLOOD SPECIMENOrdering Facility: [facility] Address: [address] [place] [address] Performed By: #### 5 7021-8 ####[facility] LABCLIA [id number] [place] [address] MCH (RBC) [Entitic mass] 29.6 pg Normal 26.0-34.0 [facility] Comment on above: Order Comment: Speci men Type: BLOOD SPECIMENOrdering Facility: [facility] Address: [address] [place] [address] Performed By: #### 5 7021-8 ####[facility] LABCLIA [id number] [place] [address] MCHC (RBC) [Mass/Vol] 32.2 g/dL Normal 30.5-36.0 [facility] Comment on above: Order Comment: Speci men Type: BLOOD SPECIMENOrdering Facility: [facility] Address: [address] [place] [address] Performed By: #### 5 7021-8 ####[facility] LABCLIA [id number] [place] [address] MCV (RBC) [Entitic vol] 92.1 fL Normal 80.0-100.0 C [facility] Comment on above: Order Comment: Speci men Type: BLOOD SPECIMENOrdering Facility: [facility] Address: [address] [place] [address] Performed By: #### 5 7021-8 ####[facility] LABCLIA [id number] [place] [address] Monocytes (Bld) [#/Vol] 0.99 10*3/uL High <0.87 [facility] Comment on above: Order Comment: Speci men Type: BLOOD SPECIMENOrdering Facility: [facility] Address: [address] [place] [address] Performed By: #### 5 7021-8 ####[facility] LABCLIA [id number] [place] [address] Monocytes/100 WBC (Bld) 15.4 % Normal [facility] Comment on above: Order Comment: Speci men Type: BLOOD SPECIMENOrdering Facility: [facility] Address: [address] [place] [address] Performed By: #### 5 7021-8 ####[facility] LABCLIA [id number] [place] [address] Neutrophils (Bld) [#/Vol] 4.03 10*3/uL Normal 1.45-7.50 [facility] Comment on above: Order Comment: Speci men Type: BLOOD SPECIMENOrdering Facility: [facility] Address: [address] [place] [address] Performed By: #### 5 7021-8 ####[facility] LABCLIA [id number] [place] [address] Neutrophils/100 WBC (Bld) 62.8 % Normal [facility] Comment on above: Order Comment: Speci men Type: BLOOD SPECIMENOrdering Facility: [facility] Address: [address] [place] [address] Performed By: #### 5 7021-8 ####[facility] LABCLIA [id number] [place] [address] Nucleated RBC (Bld) [#/Vol] 10*3/uL Normal <0.01 [facility] Comment on above: Order Comment: Speci men Type: BLOOD SPECIMENOrdering Facility: [facility] Address: [address] [place] [address] Performed By: #### 5 7021-8 ####[facility] LABCLIA [id number] [place] [address] Nucleated RBC/100 WBC (Bld) [Ratio] 0.0 /[address] [facility] Comment on above: Order Comment: Speci men Type: BLOOD SPECIMENOrdering Facility: [facility] Address: [address] [place] [address] Performed By: #### 5 7021-8 ####[facility] LABCLIA [id number] [place] [address] Platelet mean volume (Bld) [Entitic vol] 8.9 fL Low 9.0-12.7 [facility] Comment on above: Order Comment: Speci men Type: BLOOD SPECIMENOrdering Facility: [facility] Address: [address] [place] [address] Performed By: #### 5 7021-8 ####[facility] LABCLIA [id number] [place] [address] Platelets (Bld) [#/Vol] 181 10*3/uL Normal 150-400 [facility] Comment on above: Order Comment: Speci men Type: BLOOD SPECIMENOrdering Facility: [facility] Address: [address] [place] [address] Performed By: #### 5 7021-8 ####[facility] LABIA [id number] [place] [address] RBC (Bld) [#/Vol] 4.32 10*6/uL Normal 4.20-6.00 [facility] Comment on above: Order Comment: Speci men Type: BLOOD SPECIMENOrdering Facility: [facility] Address: [address] [place] [address] Performed By: #### 5 7021-8 ####[facility] LABIA [id number] [place] [address] WBC (Bld) [#/Vol] 6.42 10*3/uL Normal 3.70-11.00 [facility] Comment on above: Order Comment: Speci men Type: BLOOD SPECIMENOrdering Facility: [facility] Address: [address] [place] [address] Performed By: #### 5 7021-8 ####[facility] LABIA [id number] [place] [address] CNOVon 02-04-[address] [facility] CNPNon 02-04-[address] [facility] Comprehensive metabolic 2000 panelon 02-04-2024 Albumin [Mass/Vol] 4.0 g/dL 3.9 - 4.9 g/dL [facility] ALP [Catalytic activity/Vol] 68 U/L 38 - 113 U/L [facility] ALT [Catalytic activity/Vol] 15 U/L 10 - 54 U/L [facility] Anion gap [Moles/Vol] 10 mmol/L 9 - 18 mmol/L [facility] AST [Catalytic activity/Vol] 14 U/L 14 - 40 U/L [facility] Bilirubin [Mass/Vol] 0.3 mg/dL 0.2 - 1 .3 mg/dL [facility] Calcium [Mass/Vol] 9.7 mg/dL 8.5 - 10. 2 mg/dL [facility] Chloride [Moles/Vol] 104 mmol/L 97 - 10 5 mmol/L [facility] CO2 [Moles/Vol] 24 mmol/L 22 - 30 mmol/L [facility] Creatinine [Mass/Vol] 1.38 mg/dL High 0.73 - 1.22 mg/dL [facility] Estimated Glomerular Filtration Rate 49 mL/min/1.73m Low >=60 mL/min/1.73m [facility] Glucose [Mass/Vol] 137 mg/dL High 74 - 99 mg/dL [facility] Potassium [Moles/Vol] 4.8 mmol/L 3.7 - 5.1 mmol/L [facility] Protein [Mass/Vol] 6.9 g/dL 6.3 - 8.0 g/dL [facility] Sodium [Moles/Vol] 138 mmol/L 136 - 144 mmol/L [facility] Urea nitrogen [Mass/Vol] 32 mg/dL High 9 - 24 mg/dL [facility] Albumin [Mass/Vol] 4.0 g/dL Normal 3.9-4.9 [facility] Comment on above: Order Comment: Speci men Type: BLOOD SPECIMENOrdering Facility: [facility] Address: [address] [place] [address] Performed By: #### 1 9123-9, 37281-7 ####[facility] LABCLIA [id number] [place] [address] ALP [Catalytic activity/Vol] 68 U/L Normal 38-113 [facility] Comment on above: Order Comment: Speci men Type: BLOOD SPECIMENOrdering Facility: [facility] Address: [address] [place] [address] Performed By: #### 1 9123-9, 74824-8 ####[facility] LABCLIA [id number] [place] [address] ALT [Catalytic activity/Vol] 15 U/L Normal 10-54 [facility] Comment on above: Order Comment: Speci men Type: BLOOD SPECIMENOrdering Facility: [facility] Address: [address] [place] [address] Performed By: #### 1 9123-9, ####[facility] LABCLIA [id number] [place] [address] Anion gap [Moles/Vol] 10 mmol/L Normal 9-18 [facility] Comment on above: Order Comment: Speci men Type: BLOOD SPECIMENOrdering Facility: [facility] Address: [address] [place] [address] Performed By: #### 1 9123-9, ####[facility] LABCLIA [id number] [place] [address] AST [Catalytic activity/Vol] 14 U/L Normal 14-40 [facility] Comment on above: Order Comment: Speci men Type: BLOOD SPECIMENOrdering Facility: [facility] Address: [address] [place] [address] Performed By: #### 1 9123-9, 42848-2 ####[facility] LABCLIA [id number] [place] [address] Bilirubin [Mass/Vol] 0.3 mg/dL Normal 0.2-1.3 [facility] Comment on above: Order Comment: Speci men Type: BLOOD SPECIMENOrdering Facility: [facility] Address: [address] [place] [address] Performed By: #### 1 9123-9, 36007-3 ####[facility] LABCLIA [id number] [place] [address] Calcium [Mass/Vol] 9.7 mg/dL Normal 8.5-10.2 [facility] Comment on above: Order Comment: Speci men Type: BLOOD SPECIMENOrdering Facility: [facility] Address: [address] [place] [address] Performed By: #### 1 239, ####[facility] LABCLIA [id number] [place] [address] Chloride [Moles/Vol] 104 mmol/L Normal 97-105 [facility] Comment on above: Order Comment: Speci men Type: BLOOD SPECIMENOrdering Facility: [facility] Address: [address] [place] [address] Performed By: #### 1 9, ####[facility] LABCLIA [id number] [place] [address] CO2 [Moles/Vol] 24 mmol/L Normal 22-30 [facility] Comment on above: Order Comment: Speci men Type: BLOOD SPECIMENOrdering Facility: [facility] Address: [address] [place] [address] Performed By: #### 1 239, ####[facility] LABCLIA [id number] [place] [address] Creatinine [Mass/Vol] 1.38 mg/dL High 0.73-1.22 [facility] Comment on above: Order Comment: Speci men Type: BLOOD SPECIMENOrdering Facility: [facility] Address: [address] [place] [address] Performed By: #### 1 9123-9, ####[facility] LABCLIA [id number] [place] [address] Creatinine and Glomerular filtration rate.predicted panel (S/P/Bld) 49 mL/min/1.73m??? Low >=60 [facility] Comment on above: Order Comment: Carli arthur Type: BLOOD SPECIMENOrdering Facility: [facility] Address: [address] [place] [address] Result Comment: Cristina mated Glomerular Filtration Rate (eGFR) is calculated using the 2020 CKD-EPI creatinine equation. This equation utilizes serum creatinine, sex, and age as parameters. The creatinine assay has traceable calibration to isotope dilution-mass spectrometry. Refer to KDIGO guidelines for clinical interpretation. In patients with unstable renal function, e.g. those with acute kidney injury, the eGFR may not accurately reflect actual GFR. Performed By: #### 1 9123-9, 68792-0 ####[facility] LABCLIA [id number] [place] [address] Glucose [Mass/Vol] 137 mg/dL High 74-99 [facility] Comment on above: Order Comment: Carli arthur Type: BLOOD SPECIMENOrdering Facility: [facility] Address: [address] [place] [address] Result Comment: The [place] [employer] (ADA) provides guidance for cutoff values for fasting glucose and random glucose. The ADA defines fasting as no caloric intake for at least 8 hours. Fasting plasma glucose results between 100 to 125 mg/dL indicate increased risk for diabetes (prediabetes).Fasting plasma glucose results greater than or equal to 126 mg/dL meet the criteria for diagnosis of diabetes. In the absence of unequivocal hyperglycemia, results should be confirmed by repeat testing. In a patient with classic symptoms of hyperglycemia or hyperglycemic crisis, random plasma glucose results greater than or equal to 200 mg/dL meet the criteria for diagnosis of diabetes.Reference: Standards of Medical Care in Diabetes 2016, [place] [employer]. Diabetes Care. 2016.39(Suppl 1). Performed By: #### 1 9123-9, 74958-1 ####[facility] LABCLIA [id number] [place] [address] Potassium [Moles/Vol] 4.8 mmol/L Normal 3.7-5.1 [facility] Comment on above: Order Comment: Speci men Type: BLOOD SPECIMENOrdering Facility: [facility] Address: [address] [place], [place] [address] Performed By: #### 1 9123-9, ####[facility] LABCLIA [id number] [place] [address] Protein [Mass/Vol] 6.9 g/dL Normal 6.3-8.0 [facility] Comment on above: Order Comment: Speci men Type: BLOOD SPECIMENOrdering Facility: [facility] Address: [address] [place] [address] Performed By: #### 1 9123-9, 05288-9 ####[facility] LABIA [id number] [place] [address] Sodium [Moles/Vol] 138 mmol/L Normal 136-144 [facility] Comment on above: Order Comment: Speci men Type: BLOOD SPECIMENOrdering Facility: [facility] Address: [address] [place] [address] Performed By: #### 1 9123-9, 14987-4 ####[facility] LABCLIA [id number] [place] [address] Urea nitrogen [Mass/Vol] 32 mg/dL High 9-24 [facility] Comment on above: Order Comment: Speci men Type: BLOOD SPECIMENOrdering Facility: [facility] Address: [address] [place], [place] [address] Performed By: #### 1 9123-9, ####[facility] LABCLIA [id number] [place] [address] Eosinophils/100 WBC Auto (Bl d)on 02-04-2024 Eosinophils/100 WBC (Bld) 4.0 % [facility] Erythrocyte distribution wid th Auto (RBC) [Ratio]on 02-04-2024 Erythrocyte distribution width (RBC) [Ratio] 13.2 % 11.5-15.0 [facility] Hematocrit Auto (Bld) [Volum e fraction]on 02-04-2024 Hematocrit (Bld) [Volume fraction] 39.8 % 39.0-51.0 [facility] Hemoglobin [Mass/volume] in Bloodon 02-04-2024 Hemoglobin (Bld) [Mass/Vol] 12.8 g/dL 13.0-17.0 [facility] Laboratory - Chemistry and C hemistry - challengeon 02-04-2024 Albumin [Mass/Vol] 4.0 g/dL 3.9-4.9 [facility] ALP [Catalytic activity/Vol] 68 U/L 38-113 [facility] ALT [Catalytic activity/Vol] 15 U/L 10-54 [facility] AST [Catalytic activity/Vol] 14 U/L 14-40 [facility] Bilirubin [Mass/Vol] 0.3 mg/dL 0.2-1.3 [facility] Calcium [Mass/Vol] 9.7 mg/dL 8.5-10.2 [facility] Chloride [Moles/Vol] 104 mmol/L 97-105 [facility] CO2 [Moles/Vol] 24 mmol/L 22-30 [facility] Creatinine [Mass/Vol] 1.38 mg/dL 0.73-1.22 [facility] Glucose [Mass/Vol] 137 mg/dL 74-99 [facility] Comment on above: The [place] Diabete s Association (ADA) provides guidance for cutoff values for fasting glucose and random glucose. The ADA defines fasting as no caloric intake for at least 8 hours. Fasting plasma glucose results between 100 to 125 mg/dL indicate increased risk for diabetes (prediabetes).Fasting plasma glucose results greater than or equal to 126 mg/dL meet the criteria for diagnosis of diabetes. In the absence of unequivocal hyperglycemia, results should be confirmed by repeat testing. In a patient with classic symptoms of hyperglycemia or hyperglycemic crisis, random plasma glucose results greater than or equal to 200 mg/dL meet the criteria for diagnosis of diabetes.Reference: Standards of Medical Care in Diabetes 2016, [place] [employer]. Diabetes Care. 2016.39(Suppl 1). Magnesium [Mass/Vol] 2.4 mg/dL 1.7-2.3 [facility] Potassium [Moles/Vol] 4.8 mmol/L 3.7-5.1 [facility] Sodium [Moles/Vol] 138 mmol/L 136-144 [facility] Urea nitrogen [Mass/Vol] 32 mg/dL 9- [facility] Laboratory - Hematology and Cell countson 02-04-2024 Eosinophils (Bld) [#/Vol] 0.26 10*3/uL <0.46 [facility] Immature granulocytes/100 WBC (Bld) 0.3 % [facility] Leukocytes [#/volume] correc ramona for nucleated erythrocytes in Blood by Automated counon 02-04-2024 WBC corrected for nucl RBC Auto (Bld) [#/Vol] 6.42 k/uL 3.70-11.00 [facility] Lymphocytes Auto (Bld) [#/Vo l]on 02-04-2024 Lymphocytes (Bld) [#/Vol] 1.09 10*3/uL 1.00-4.00 [facility] Lymphocytes/100 WBC Auto (Bl d)on 02-04-2024 Lymphocytes/100 WBC (Bld) 17.0 % [facility] MAGNESIUM BLDon 02-04-2024 Magnesium [Mass/Vol] 2.4 mg/dL High 1.7 - 2 .3 mg/dL [facility] MCH Auto (RBC) [Entitic mass ]on 02-04-2024 MCH (RBC) [Entitic mass] 29.6 pg 26.0-34.0 [facility] MCHC Auto (RBC) [Mass/Vol]on 02-04-2024 MCHC (RBC) [Mass/Vol] 32.2 g/dL 30.5-36.0 [facility] MCV Auto (RBC) [Entitic vol] on 02-04-2024 MCV (RBC) [Entitic vol] 92.1 fL 80.0-100.0 [facility] Magnesium SerPl-mCncon 02-03 Magnesium [Mass/Vol] 2.4 mg/dL High 1.7-2.3 [facility] Comment on above: Order Comment: Speci men Type: BLOOD SPECIMENOrdering Facility: [facility] Address: [address] [place], [place] [address] Performed By: #### 1 9123-9, 43710-8 ####[facility] LABCLIA [id number] [place] [address] Monocytes Auto (Bld) [#/Vol] on 02-04-2024 Monocytes (Bld) [#/Vol] 0.99 10*3/uL <0.87 [facility] Monocytes/100 WBC Auto (Bld) on 02-04-2024 Monocytes/100 WBC (Bld) 15.4 % [facility] Neutrophils Auto (Bld) [#/Vo l]on 02-04-2024 Neutrophils (Bld) [#/Vol] 4.03 10*3/uL 1.45-7.50 [facility] Neutrophils/100 WBC Auto (Bl d)on 02-04-2024 Neutrophils/100 WBC (Bld) 62.8 % [facility] No Panel Informationon 02-03 Estimated GFR (CKD-EPI) 49 mL/min/1.73m??? >=60 [facility] Comment on above: Estimated Glomerular Filtration Rate (eGFR) is calculated using the 2020 CKD-EPI creatinine equation. This equation utilizes serum creatinine, sex, and age as parameters. The creatinine assay has traceable calibration to isotope dilution-mass spectrometry. Refer to KDIGO guidelines for clinical interpretation. In patients with unstable renal function, e.g. those with acute kidney injury, the eGFR may not accurately reflect actual GFR. Immature Granulocyte # (Auto) <0.03 k/uL <0.10 [facility] Nucleated RBC Auto (Bld) [#/ Vol]on 02-04-2024 Nucleated RBC (Bld) [#/Vol] 10*3/uL <0.01 [facility] Nucleated erythrocytes [Pres ence] in Blood by Automated counton 02-04-2024 Nucleated RBC Auto Ql (Bld) 0.0 /100{WBC} [facility] Platelet mean volume Auto (B ld) [Entitic vol]on 02-04-2024 Platelet mean volume (Bld) [Entitic vol] 8.9 fL 9.0-12.7 [facility] Platelets Auto (Bld) [#/Vol] on 02-04-2024 Platelets (Bld) [#/Vol] 181 10*3/uL 150-400 [facility] Protein [Mass/volume] in Ser um or Plasmaon 02-04-2024 Protein [Mass/Vol] 6.9 g/dL 6.3-8.0 [facility] RBC Auto (Bld) [#/Vol]on RBC (Bld) [#/Vol] 4.32 10*6/uL 4.20-6.00 [facility] Serum or plasma anion gap de terminationon 02-04-2024 Anion gap [Moles/Vol] 10 mmol/L 9-18 [facility] CNOVon 02-03-[address] [facility] Laboratory - Chemistry and C hemistry - challengeon 01-31-2024 Bilirubin Ql (U) Negative [facility] Glucose (U) [Mass/Vol] Negative [facility] Ketones Ql (U) 5 [facility] pH (U) 5.0 [pH] [facility] Specific gravity (U) [Rel density] 1.010 [facility] Urobilinogen (U) [Mass/Vol] 0.2 mg/dL [facility] Laboratory - Specimen inform ationon 01-31-2024 Appearance (U) cloudy [facility] Color (U) darkyellow [facility] Laboratory - Urinalysison Leukocyte esterase Test strip Ql (U) ++ [facility] Nitrite Ql (U) Positive [facility] Protein Ql (U) + [facility] No Panel Informationon 01-30 Urine Occult Blood + [facility] CNPNon 01-29-[address] [facility] Consultation Noteon 01-29-20 24 Consultation Note [id number] #1.00TIFF Normal [facility] Basophils Auto (Bld) [#/Vol] on 01-28-2024 Basophils (Bld) [#/Vol] 0.03 10*3/uL <0.11 [facility] Basophils/100 WBC Auto (Bld) on 01-28-2024 Basophils/100 WBC (Bld) 0.4 % [facility] Blood manual differential co mment interpretation narrativeon 01-28-2024 Manual differential comment Joshua (Bld) [Interp] Auto [facility] CBC W Auto Differential pane l (Bld)on 01-28-2024 Basophils (Bld) [#/Vol] 0.03 10*3/uL Normal <0.11 [facility] Comment on above: Order Comment: Speci men Type: BLOOD SPECIMENOrdering Facility: [facility] Address: [address] [place] [address] Performed By: #### 5 7021-8 ####[facility] LABCLIA [id number] [place] [address] Basophils/100 WBC (Bld) 0.4 % Normal C [facility] Comment on above: Order Comment: Speci men Type: BLOOD SPECIMENOrdering Facility: [facility] Address: [address] [place] [address] Performed By: #### 5 7021-8 ####[facility] LABCLIA [id number] [place] [address] Differential cell count method Nom (Bld) Auto Normal [facility] Comment on above: Order Comment: Speci men Type: BLOOD SPECIMENOrdering Facility: [facility] Address: [address] [place] [address] Performed By: #### 5 7021-8 ####[facility] LABCLIA [id number] [place] [address] Eosinophils (Bld) [#/Vol] 0.60 10*3/uL High <0.46 [facility] Comment on above: Order Comment: Speci men Type: BLOOD SPECIMENOrdering Facility: [facility] Address: [address] [place] [address] Performed By: #### 5 7021-8 ####[facility] LABCLIA [id number] [place] [address] Eosinophils/100 WBC (Bld) 8.8 % Normal [facility] Comment on above: Order Comment: Speci men Type: BLOOD SPECIMENOrdering Facility: [facility] Address: [address] [place] [address] Performed By: #### 5 7021-8 ####[facility] LABCLIA [id number] [place] [address] Erythrocyte distribution width (RBC) [Ratio] 13.2 % Normal 11.5-15.0 [facility] Comment on above: Order Comment: Speci men Type: BLOOD SPECIMENOrdering Facility: [facility] Address: [address] [place] [address] Performed By: #### 5 7021-8 ####[facility] LABCLIA [id number] [place] [address] Hematocrit (Bld) [Volume fraction] 37.3 % Low 39.0-51.0 [facility] Comment on above: Order Comment: Speci men Type: BLOOD SPECIMENOrdering Facility: [facility] Address: [address] [place] [address] Performed By: #### 5 7021-8 ####[facility] LABIA [id number] [place] [address] Hemoglobin (Bld) [Mass/Vol] 12.1 g/dL Low 13.0-17.0 [facility] Comment on above: Order Comment: Speci men Type: BLOOD SPECIMENOrdering Facility: [facility] Address: [address] [place] [address] Performed By: #### 5 7021-8 ####[facility] LABCLIA [id number] [place] [address] Immature granulocytes (Bld) [#/Vol] 0.03 10*3/uL Normal <0.10 [facility] Comment on above: Order Comment: Speci men Type: BLOOD SPECIMENOrdering Facility: [facility] Address: [address] [place] [address] Performed By: #### 5 7021-8 ####[facility] LABCLIA [id number] [place] [address] Immature granulocytes/100 WBC (Bld) 0.4 % Normal [facility] Comment on above: Order Comment: Speci men Type: BLOOD SPECIMENOrdering Facility: [facility] Address: [address] [place] [address] Performed By: #### 5 7021-8 ####[facility] LABCLIA [id number] [place] [address] Lymphocytes (Bld) [#/Vol] 1.11 10*3/uL Normal 1.00-4.00 [facility] Comment on above: Order Comment: Speci men Type: BLOOD SPECIMENOrdering Facility: [facility] Address: [address] [place] [address] Performed By: #### 5 7021-8 ####[facility] LABCLIA [id number] [place] [address] Lymphocytes/100 WBC (Bld) 16.2 % Normal [facility] Comment on above: Order Comment: Speci men Type: BLOOD SPECIMENOrdering Facility: [facility] Address: [address] [place] [address] Performed By: #### 5 7021-8 ####[facility] LABCLIA [id number] [place] [address] MCH (RBC) [Entitic mass] 30.2 pg Normal 26.0-34.0 [facility] Comment on above: Order Comment: Speci men Type: BLOOD SPECIMENOrdering Facility: [facility] Address: [address] [place] [address] Performed By: #### 5 7021-8 ####[facility] LABCLIA [id number] [place] [address] MCHC (RBC) [Mass/Vol] 32.4 g/dL Normal 30.5-36.0 [facility] Comment on above: Order Comment: Speci men Type: BLOOD SPECIMENOrdering Facility: [facility] Address: [address] [place] [address] Performed By: #### 5 7021-8 ####[facility] LABCLIA [id number] [place] [address] MCV (RBC) [Entitic vol] 93.0 fL Normal 80.0-100.0 [facility] Comment on above: Order Comment: Speci men Type: BLOOD SPECIMENOrdering Facility: [facility] Address: [address] [place] [address] Performed By: #### 5 7021-8 ####[facility] LABCLIA [id number] [place] [address] Monocytes (Bld) [#/Vol] 1.02 10*3/uL High <0.87 [facility] Comment on above: Order Comment: Speci men Type: BLOOD SPECIMENOrdering Facility: [facility] Address: [address] [place] [address] Performed By: #### 5 7021-8 ####[facility] LABCLIA [id number] [place] [address] Monocytes/100 WBC (Bld) 14.9 % Normal C [facility] Comment on above: Order Comment: Speci men Type: BLOOD SPECIMENOrdering Facility: [facility] Address: [address] [place] [address] Performed By: #### 5 7021-8 ####[facility] LABCLIA [id number] [place] [address] Neutrophils (Bld) [#/Vol] 4.05 10*3/uL Normal 1.45-7.50 [facility] Comment on above: Order Comment: Speci men Type: BLOOD SPECIMENOrdering Facility: [facility] Address: [address] [place] [address] Performed By: #### 5 7021-8 ####[facility] LABCLIA [id number] [place] [address] Neutrophils/100 WBC (Bld) 59.3 % Normal [facility] Comment on above: Order Comment: Speci men Type: BLOOD SPECIMENOrdering Facility: [facility] Address: [address] [place] [address] Performed By: #### 5 7021-8 ####[facility] LABCLIA [id number] [place] [address] Nucleated RBC (Bld) [#/Vol] 10*3/uL Normal <0.01 [facility] Comment on above: Order Comment: Speci men Type: BLOOD SPECIMENOrdering Facility: [facility] Address: [address] [place] [address] Performed By: #### 5 7021-8 ####[facility] LABCLIA [id number] [place] [address] Nucleated RBC/100 WBC (Bld) [Ratio] 0.0 /[address] [facility] Comment on above: Order Comment: Speci men Type: BLOOD SPECIMENOrdering Facility: [facility] Address: [address] [place] [address] Performed By: #### 5 7021-8 ####[facility] LABCLIA [id number] [place] [address] Platelet mean volume (Bld) [Entitic vol] 8.5 fL Low 9.0-12.7 [facility] Comment on above: Order Comment: Speci men Type: BLOOD SPECIMENOrdering Facility: [facility] Address: [address] [place] [address] Performed By: #### 5 7021-8 ####[facility] LABIA [id number] [place] [address] Platelets (Bld) [#/Vol] 172 10*3/uL Normal 150-400 [facility] Comment on above: Order Comment: Speci men Type: BLOOD SPECIMENOrdering Facility: [facility] Address: [address] [place] [address] Performed By: #### 5 7021-8 ####[facility] LABCLIA [id number] [place] [address] RBC (Bld) [#/Vol] 4.01 10*6/uL Low 4.20-6.00 [facility] Comment on above: Order Comment: Speci men Type: BLOOD SPECIMENOrdering Facility: [facility] Address: [address] [place] [address] Performed By: #### 5 7021-8 ####[facility] LABIA [id number] [place] [address] WBC (Bld) [#/Vol] 6.84 10*3/uL Normal 3.70-11.00 [facility] Comment on above: Order Comment: Speci men Type: BLOOD SPECIMENOrdering Facility: [facility] Address: [address] [place] [address] Performed By: #### 5 7021-8 ####[facility] LABIA [id number] [place] [address] CNOVon 01-28-[address] [facility] CNOVSPon 01-28-[address] [facility] Comp Metab 2000 Pnl SerPlon 01-28-2024 Albumin [Mass/Vol] 4.1 g/dL Normal 3.9-4.9 [facility] Comment on above: Order Comment: Speci men Type: BLOOD SPECIMENOrdering Facility: [facility] Address: [address] [place] [address] Performed By: #### 2 4323-8 ####[facility] LABIA [id number] [place] [address] ALP [Catalytic activity/Vol] 70 U/L Normal 38-113 [facility] Comment on above: Order Comment: Speci men Type: BLOOD SPECIMENOrdering Facility: [facility] Address: [address] [place] [address] Performed By: #### 2 4323-8 ####[facility] LABCLIA [id number] [place] [address] ALT [Catalytic activity/Vol] 25 U/L Normal 10-54 [facility] Comment on above: Order Comment: Speci men Type: BLOOD SPECIMENOrdering Facility: [facility] Address: [address] [place] [address] Performed By: #### 2 4323-8 ####[facility] LABCLIA [id number] [place] [address] AST [Catalytic activity/Vol] 21 U/L Normal 14-40 [facility] Comment on above: Order Comment: Speci men Type: BLOOD SPECIMENOrdering Facility: [facility] Address: [address] [place] [address] Performed By: #### 2 4323-8 ####[facility] LABCLIA [id number] [place] [address] Bilirubin [Mass/Vol] 0.3 mg/dL Normal 0.2-1.3 [facility] Comment on above: Order Comment: Speci men Type: BLOOD SPECIMENOrdering Facility: [facility] Address: [address] [place] [address] Performed By: #### 2 4323-8 ####[facility] LABCLIA [id number] [place] [address] Calcium [Mass/Vol] 9.4 mg/dL Normal 8.5-10.2 [facility] Comment on above: Order Comment: Speci men Type: BLOOD SPECIMENOrdering Facility: [facility] Address: [address] [place] [address] Performed By: #### 2 4323-8 ####[facility] LABCLIA [id number] [place] [address] Chloride [Moles/Vol] 106 mmol/L High 97-105 [facility] Comment on above: Order Comment: Speci men Type: BLOOD SPECIMENOrdering Facility: [facility] Address: [address] [id number] Performed By: #### 2 4323-8 ####[facility] LABCLIA [id number] [place] [address] CO2 [Moles/Vol] 26 mmol/L Normal 22-30 [facility] Comment on above: Order Comment: Speci men Type: BLOOD SPECIMENOrdering Facility: [facility] Address: [address] [place] [address] Performed By: #### 2 4323-8 ####[facility] LABCLIA [id number] [place] [address] Creatinine [Mass/Vol] 1.06 mg/dL Normal 0.73-1.22 [facility] Comment on above: Order Comment: Speci men Type: BLOOD SPECIMENOrdering Facility: [facility] Address: [address] [place] [address] Performed By: #### 2 4323-8 ####[facility] LABCLIA [id number] [place] [address] Glucose [Mass/Vol] 85 mg/dL Normal 74-99 [facility] Comment on above: The [place] Di[employer] Association (ADA) provides guidance for cutoff values for fasting glucose and random glucose. The ADA defines fasting as no caloric intake for at least 8 hours. Fasting plasma glucose results between 100 to 125 mg/dL indicate increased risk for diabetes (prediabetes).Fasting plasma glucose results greater than or equal to 126 mg/dL meet the criteria for diagnosis of diabetes. In the absence of unequivocal hyperglycemia, results should be confirmed by repeat testing. In a patient with classic symptoms of hyperglycemia or hyperglycemic crisis, random plasma glucose results greater than or equal to 200 mg/dL meet the criteria for diagnosis of diabetes.Reference: Standards of Medical Care in Diabetes 2016, [place] [employer]. Diabetes Care. 2016.39(Suppl 1). Order Comment: Speci men Type: BLOOD SPECIMENOrdering Facility: [facility] Address: [address], [place] [address] Result Comment: The [place] Diabetes Association (ADA) provides guidance for cutoff values for fasting glucose and random glucose. The ADA defines fasting as no caloric intake for at least 8 hours. Fasting plasma glucose results between 100 to 125 mg/dL indicate increased risk for diabetes (prediabetes).Fasting plasma glucose results greater than or equal to 126 mg/dL meet the criteria for diagnosis of diabetes. In the absence of unequivocal hyperglycemia, results should be confirmed by repeat testing. In a patient with classic symptoms of hyperglycemia or hyperglycemic crisis, random plasma glucose results greater than or equal to 200 mg/dL meet the criteria for diagnosis of diabetes.Reference: Standards of Medical Care in Diabetes 2016, [place] [employer]. Diabetes Care. 2016.39(Suppl 1). Performed By: #### 2 4323-8 ####[facility] LABCLIA [id number] [place] [address] Potassium [Moles/Vol] 4.7 mmol/L Normal 3.7-5.1 [facility] Comment on above: Order Comment: Speci men Type: BLOOD SPECIMENOrdering Facility: [facility] Address: [address] [place] [address] Performed By: #### 2 4323-8 ####[facility] LABCLIA [id number] [place] [address] Sodium [Moles/Vol] 139 mmol/L Normal 136-144 [facility] Comment on above: Order Comment: Speci men Type: BLOOD SPECIMENOrdering Facility: [facility] Address: [address] [place] [address] Performed By: #### 2 4323-8 ####[facility] LABCLIA [id number] [place] [address] Urea nitrogen [Mass/Vol] 23 mg/dL Normal 9-24 [facility] Comment on above: Order Comment: Speci men Type: BLOOD SPECIMENOrdering Facility: [facility] Address: [address] [id number] Performed By: #### 2 4323-8 ####[facility] LABCLIA [id number] [place] [address] Comprehensive metabolic 2000 panelon 01-28-2024 Albumin [Mass/Vol] 4.1 g/dL 3.9 - 4.9 g/dL [facility] ALP [Catalytic activity/Vol] 70 U/L 38 - 113 U/L [facility] ALT [Catalytic activity/Vol] 25 U/L 10 - 54 U/L [facility] Anion gap [Moles/Vol] 7 mmol/L Low 9 - 18 mmol/L [facility] AST [Catalytic activity/Vol] 21 U/L 14 - 40 U/L [facility] Bilirubin [Mass/Vol] 0.3 mg/dL 0.2 - 1 .3 mg/dL [facility] Calcium [Mass/Vol] 9.4 mg/dL 8.5 - 10. 2 mg/dL [facility] Chloride [Moles/Vol] 106 mmol/L High 97 - 10 5 mmol/L [facility] CO2 [Moles/Vol] 26 mmol/L 22 - 30 mmol/L [facility] Creatinine [Mass/Vol] 1.06 mg/dL 0.73 - 1.22 mg/dL [facility] Estimated Glomerular Filtration Rate 68 mL/min/1.73m >=60 mL/min/1.73m [facility] Glucose [Mass/Vol] 85 mg/dL 74 - 99 mg/dL [facility] Potassium [Moles/Vol] 4.7 mmol/L 3.7 - 5.1 mmol/L [facility] Protein [Mass/Vol] 6.8 g/dL 6.3 - 8.0 g/dL [facility] Sodium [Moles/Vol] 139 mmol/L 136 - 144 mmol/L [facility] Urea nitrogen [Mass/Vol] 23 mg/dL 9 - 24 mg/dL [facility] Creatinine and Glomerular filtration rate.predicted panel (S/P/Bld) 68 mL/min/1.73m??? Normal >=60 [facility] Comment on above: Order Comment: Speci men Type: BLOOD SPECIMENOrdering Facility: [facility] Address: [address] [place] [address] Result Comment: Cristina mated Glomerular Filtration Rate (eGFR) is calculated using the 2020 CKD-EPI creatinine equation. This equation utilizes serum creatinine, sex, and age as parameters. The creatinine assay has traceable calibration to isotope dilution-mass spectrometry. Refer to KDIGO guidelines for clinical interpretation. In patients with unstable renal function, e.g. those with acute kidney injury, the eGFR may not accurately reflect actual GFR. Performed By: #### 2 4323-8 ####[facility] LABCLIA [id number] [place] [address] Consultation Noteon 01-28-20 Consultation Note [id number] #[id number] Normal [facility] Eosinophils/100 WBC Auto (Bl d)on 01-28-2024 Eosinophils/100 WBC (Bld) 8.8 % [facility] Erythrocyte distribution wid th Auto (RBC) [Ratio]on 01-28-2024 Erythrocyte distribution width (RBC) [Ratio] 13.2 % 11.5-15.0 [facility] Hematocrit Auto (Bld) [Volum e fraction]on 01-28-2024 Hematocrit (Bld) [Volume fraction] 37.3 % 39.0-51.0 [facility] Hemoglobin [Mass/volume] in Bloodon 01-28-2024 Hemoglobin (Bld) [Mass/Vol] 12.1 g/dL 13.0-17.0 [facility] Laboratory - Chemistry and C hemistry - challengeon 01-28-2024 Magnesium [Mass/Vol] 2.4 mg/dL High 1.7 - 2 .3 mg/dL [facility] Laboratory - Hematology and Cell countson 01-28-2024 Eosinophils (Bld) [#/Vol] 0.60 10*3/uL <0.46 [facility] Immature granulocytes (Bld) [#/Vol] 0.03 10*3/uL <0.10 [facility] Immature granulocytes/100 WBC (Bld) 0.4 % [facility] Leukocytes [#/volume] correc ramona for nucleated erythrocytes in Blood by Automated counon 01-28-2024 WBC corrected for nucl RBC Auto (Bld) [#/Vol] 6.84 k/uL 3.70-11.00 [facility] Lymphocytes Auto (Bld) [#/Vo l]on 01-28-2024 Lymphocytes (Bld) [#/Vol] 1.11 10*3/uL 1.00-4.00 [facility] Lymphocytes/100 WBC Auto (Bl d)on 01-28-2024 Lymphocytes/100 WBC (Bld) 16.2 % [facility] MCH Auto (RBC) [Entitic mass ]on 01-28-2024 MCH (RBC) [Entitic mass] 30.2 pg 26.0-34.0 [facility] MCHC Auto (RBC) [Mass/Vol]on 01-28-2024 MCHC (RBC) [Mass/Vol] 32.4 g/dL 30.5-36.0 [facility] MCV Auto (RBC) [Entitic vol] on 01-28-2024 MCV (RBC) [Entitic vol] 93.0 fL 80.0-100.0 [facility] Magnesium SerPl-mCncon 01-27 Magnesium [Mass/Vol] 2.4 mg/dL High 1.7-2.3 [facility] Comment on above: Order Comment: Speci men Type: BLOOD SPECIMENOrdering Facility: [facility] Address: [address] [place] [address] Performed By: #### 1 9123-9 ####[facility] LABCLIA [id number] [place] [address] Monocytes Auto (Bld) [#/Vol] on 01-28-2024 Monocytes (Bld) [#/Vol] 1.02 10*3/uL <0.87 [facility] Monocytes/100 WBC Auto (Bld) on 01-28-2024 Monocytes/100 WBC (Bld) 14.9 % [facility] Neutrophils Auto (Bld) [#/Vo l]on 01-28-2024 Neutrophils (Bld) [#/Vol] 4.05 10*3/uL 1.45-7.50 [facility] Neutrophils/100 WBC Auto (Bl d)on 01-28-2024 Neutrophils/100 WBC (Bld) 59.3 % [facility] No Panel Informationon 01-27 Estimated GFR (CKD-EPI) 68 mL/min/1.73m??? >=60 [facility] Comment on above: Estimated Glomerular Filtration Rate (eGFR) is calculated using the 2020 CKD-EPI creatinine equation. This equation utilizes serum creatinine, sex, and age as parameters. The creatinine assay has traceable calibration to isotope dilution-mass spectrometry. Refer to KDIGO guidelines for clinical interpretation. In patients with unstable renal function, e.g. those with acute kidney injury, the eGFR may not accurately reflect actual GFR. Nucleated RBC Auto (Bld) [#/ Vol]on 01-28-2024 Nucleated RBC (Bld) [#/Vol] 10*3/uL <0.01 [facility] Nucleated erythrocytes [Pres ence] in Blood by Automated counton 01-28-2024 Nucleated RBC Auto Ql (Bld) 0.0 /100{WBC} [facility] Platelet mean volume Auto (B ld) [Entitic vol]on 01-28-2024 Platelet mean volume (Bld) [Entitic vol] 8.5 fL 9.0-12.7 [facility] Platelets Auto (Bld) [#/Vol] on 01-28-2024 Platelets (Bld) [#/Vol] 172 10*3/uL 150-400 [facility] Protein [Mass/volume] in Ser um or Plasmaon 01-28-2024 Protein [Mass/Vol] 6.8 g/dL Normal 6.3-8.0 [facility] Comment on above: Order Comment: Speci men Type: BLOOD SPECIMENOrdering Facility: [facility] Address: [address] [place], [place] [address] Performed By: #### 2 4323-8 ####[facility] LABCLIA [id number] [place] [address] RBC Auto (Bld) [#/Vol]on RBC (Bld) [#/Vol] 4.01 10*6/uL 4.20-6.00 [facility] Serum or plasma anion gap de terminationon 01-28-2024 Anion gap [Moles/Vol] 7 mmol/L Low 9-18 [facility] Comment on above: Order Comment: Speci men Type: BLOOD SPECIMENOrdering Facility: [facility] Address: [address] [place] [address] Performed By: #### 2 4323-8 ####[facility] LABCLIA [id number] [place] [address] CNPNon 01-24-[address] [facility] Basophils Auto (Bld) [#/Vol] on 01-20-2024 Basophils (Bld) [#/Vol] 0.05 10*3/uL <0.11 [facility] Basophils/100 WBC Auto (Bld) on 01-20-2024 Basophils/100 WBC (Bld) 0.8 % [facility] Blood manual differential co mment interpretation narrativeon 01-20-2024 Manual differential comment Joshua (Bld) [Interp] Auto [facility] CBC W Auto Differential pane l (Bld)on 01-20-2024 Basophils (Bld) [#/Vol] 0.05 10*3/uL Normal <0.11 [facility] Comment on above: Order Comment: Speci men Type: BLOOD SPECIMENOrdering Facility: [facility] Address: [address] [place] [address] Performed By: #### 5 7021-8 ####[facility] LABCLIA [id number] [place] [address] Basophils/100 WBC (Bld) 0.8 % Normal C [facility] Comment on above: Order Comment: Speci men Type: BLOOD SPECIMENOrdering Facility: [facility] Address: [address] [place] [address] Performed By: #### 5 7021-8 ####[facility] LABCLIA [id number] [place] [address] Differential cell count method Nom (Bld) Auto Normal [facility] Comment on above: Order Comment: Speci men Type: BLOOD SPECIMENOrdering Facility: [facility] Address: [address] [place] [address] Performed By: #### 5 7021-8 ####[facility] LABCLIA [id number] [place] [address] Eosinophils (Bld) [#/Vol] 0.61 10*3/uL High <0.46 [facility] Comment on above: Order Comment: Speci men Type: BLOOD SPECIMENOrdering Facility: [facility] Address: [address] [place] [address] Performed By: #### 5 7021-8 ####[facility] LABCLIA [id number] [place] [address] Eosinophils/100 WBC (Bld) 10.1 % Normal [facility] Comment on above: Order Comment: Speci men Type: BLOOD SPECIMENOrdering Facility: [facility] Address: [address] [place] [address] Performed By: #### 5 7021-8 ####[facility] LABIA [id number] [place] [address] Erythrocyte distribution width (RBC) [Ratio] 13.2 % Normal 11.5-15.0 [facility] Comment on above: Order Comment: Speci men Type: BLOOD SPECIMENOrdering Facility: [facility] Address: [address] [place] [address] Performed By: #### 5 7021-8 ####[facility] LABCLIA [id number] [place] [address] Hematocrit (Bld) [Volume fraction] 39.2 % Normal 39.0-51.0 [facility] Comment on above: Order Comment: Speci men Type: BLOOD SPECIMENOrdering Facility: [facility] Address: [address] [place] [address] Performed By: #### 5 7021-8 ####[facility] LABIA [id number] [place] [address] Hemoglobin (Bld) [Mass/Vol] 12.4 g/dL Low 13.0-17.0 [facility] Comment on above: Order Comment: Speci men Type: BLOOD SPECIMENOrdering Facility: [facility] Address: [address] [place] [address] Performed By: #### 5 7021-8 ####[facility] LABCLIA [id number] [place] [address] Immature granulocytes (Bld) [#/Vol] 10*3/uL Normal <0.10 [facility] Comment on above: Order Comment: Speci men Type: BLOOD SPECIMENOrdering Facility: [facility] Address: [address] [place] [address] Performed By: #### 5 7021-8 ####[facility] LABCLIA [id number] [place] [address] Immature granulocytes/100 WBC (Bld) 0.3 % Normal [facility] Comment on above: Order Comment: Speci men Type: BLOOD SPECIMENOrdering Facility: [facility] Address: [address] [place] [address] Performed By: #### 5 7021-8 ####[facility] LABCLIA [id number] [place] [address] Lymphocytes (Bld) [#/Vol] 1.28 10*3/uL Normal 1.00-4.00 [facility] Comment on above: Order Comment: Speci men Type: BLOOD SPECIMENOrdering Facility: [facility] Address: [address] [place] [address] Performed By: #### 5 7021-8 ####[facility] LABCLIA [id number] [place] [address] Lymphocytes/100 WBC (Bld) 21.2 % Normal [facility] Comment on above: Order Comment: Speci men Type: BLOOD SPECIMENOrdering Facility: [facility] Address: [address] [place] [address] Performed By: #### 5 7021-8 ####[facility] LABCLIA [id number] [place] [address] MCH (RBC) [Entitic mass] 29.6 pg Normal 26.0-34.0 [facility] Comment on above: Order Comment: Speci men Type: BLOOD SPECIMENOrdering Facility: [facility] Address: [address] [place] [address] Performed By: #### 5 7021-8 ####[facility] LABCLIA [id number] [place] [address] MCHC (RBC) [Mass/Vol] 31.6 g/dL Normal 30.5-36.0 [facility] Comment on above: Order Comment: Speci men Type: BLOOD SPECIMENOrdering Facility: [facility] Address: [address] [place] [address] Performed By: #### 5 7021-8 ####[facility] LABCLIA [id number] [place] [address] MCV (RBC) [Entitic vol] 93.6 fL Normal 80.0-100.0 C [facility] Comment on above: Order Comment: Speci men Type: BLOOD SPECIMENOrdering Facility: [facility] Address: [address] [place] [address] Performed By: #### 5 7021-8 ####[facility] LABCLIA [id number] [place] [address] Monocytes (Bld) [#/Vol] 0.87 10*3/uL High <0.87 [facility] Comment on above: Order Comment: Speci men Type: BLOOD SPECIMENOrdering Facility: [facility] Address: [address] [place] [address] Performed By: #### 5 7021-8 ####[facility] LABCLIA [id number] [place] [address] Monocytes/100 WBC (Bld) 14.4 % Normal C [facility] Comment on above: Order Comment: Speci men Type: BLOOD SPECIMENOrdering Facility: [facility] Address: [address] [place] [address] Performed By: #### 5 7021-8 ####[facility] LABCLIA [id number] [place] [address] Neutrophils (Bld) [#/Vol] 3.22 10*3/uL Normal 1.45-7.50 [facility] Comment on above: Order Comment: Speci men Type: BLOOD SPECIMENOrdering Facility: [facility] Address: [address] [place] [address] Performed By: #### 5 7021-8 ####[facility] LABCLIA [id number] [place] [address] Neutrophils/100 WBC (Bld) 53.2 % Normal [facility] Comment on above: Order Comment: Speci men Type: BLOOD SPECIMENOrdering Facility: [facility] Address: [address] [place] [address] Performed By: #### 5 7021-8 ####[facility] LABCLIA [id number] [place] [address] Nucleated RBC (Bld) [#/Vol] 10*3/uL Normal <0.01 [facility] Comment on above: Order Comment: Speci men Type: BLOOD SPECIMENOrdering Facility: [facility] Address: [address] [place] [address] Performed By: #### 5 7021-8 ####[facility] LABCLIA [id number] [place] [address] Nucleated RBC/100 WBC (Bld) [Ratio] 0.0 /[address] [facility] Comment on above: Order Comment: Speci men Type: BLOOD SPECIMENOrdering Facility: [facility] Address: [address] [place] [address] Performed By: #### 5 7021-8 ####[facility] LABCLIA [id number] [place] [address] Platelet mean volume (Bld) [Entitic vol] 8.7 fL Low 9.0-12.7 [facility] Comment on above: Order Comment: Speci men Type: BLOOD SPECIMENOrdering Facility: [facility] Address: [address] [place] [address] Performed By: #### 5 7021-8 ####[facility] LABCLIA [id number] [place] [address] Platelets (Bld) [#/Vol] 165 10*3/uL Normal 150-400 [facility] Comment on above: Order Comment: Speci men Type: BLOOD SPECIMENOrdering Facility: [facility] Address: [address] [place] [address] Performed By: #### 5 7021-8 ####[facility] LABIA [id number] [place] [address] RBC (Bld) [#/Vol] 4.19 10*6/uL Low 4.20-6.00 [facility] Comment on above: Order Comment: Speci men Type: BLOOD SPECIMENOrdering Facility: [facility] Address: [address] [place] [address] Performed By: #### 5 7021-8 ####[facility] LABIA [id number] [place] [address] WBC (Bld) [#/Vol] 6.05 10*3/uL Normal 3.70-11.00 [facility] Comment on above: Order Comment: Speci men Type: BLOOD SPECIMENOrdering Facility: [facility] Address: [address] [place] [address] Performed By: #### 5 7021-8 ####[facility] LABIA [id number] [place] [address] CNOVon 01-20-[address] [facility] CNOVSPon 01-20-[address] [facility] CNPNon 01-20-[address] [facility] Comprehensive metabolic 2000 panelon 01-20-2024 Albumin [Mass/Vol] 3.8 g/dL Low 3.9-4.9 [facility] Comment on above: Order Comment: Speci men Type: BLOOD SPECIMENOrdering Facility: [facility] Address: [address] [place] [address] Performed By: #### 2 4323-8 ####[facility] LABCLIA [id number] [place] [address] ALP [Catalytic activity/Vol] 71 U/L Normal 38-113 [facility] Comment on above: Order Comment: Speci men Type: BLOOD SPECIMENOrdering Facility: [facility] Address: [address] [place] [address] Performed By: #### 2 4323-8 ####[facility] LABCLIA [id number] [place] [address] ALT [Catalytic activity/Vol] 15 U/L Normal 10-54 [facility] Comment on above: Order Comment: Speci men Type: BLOOD SPECIMENOrdering Facility: [facility] Address: [address] [place] [address] Performed By: #### 2 4323-8 ####[facility] LABCLIA [id number] [place] [address] Anion gap [Moles/Vol] 10 mmol/L Normal 9-18 [facility] Comment on above: Order Comment: Speci men Type: BLOOD SPECIMENOrdering Facility: [facility] Address: [address] [place] [address] Performed By: #### 2 4323-8 ####[facility] LABCLIA [id number] [place] [address] AST [Catalytic activity/Vol] 13 U/L Low 14-40 [facility] Comment on above: Order Comment: Speci men Type: BLOOD SPECIMENOrdering Facility: [facility] Address: [address] [place], [place] [address] Performed By: #### 2 4323-8 ####[facility] LABCLIA [id number] [place] [address] Bilirubin [Mass/Vol] 0.3 mg/dL Normal 0.2-1.3 [facility] Comment on above: Order Comment: Speci men Type: BLOOD SPECIMENOrdering Facility: [facility] Address: [address] [place] [address] Performed By: #### 2 4323-8 ####[facility] LABCLIA [id number] [place] [address] Calcium [Mass/Vol] 9.6 mg/dL Normal 8.5-10.2 [facility] Comment on above: Order Comment: Speci men Type: BLOOD SPECIMENOrdering Facility: [facility] Address: [address] [place] [address] Performed By: #### 2 4323-8 ####[facility] LABCLIA [id number] [place] [address] Chloride [Moles/Vol] 109 mmol/L High 97-105 [facility] Health Comment on above: Order Comment: Speci men Type: BLOOD SPECIMENOrdering Facility: [facility] Address: [address] [place] [address] Performed By: #### 2 4323-8 ####[facility] LABCLIA [id number] [place] [address] CO2 [Moles/Vol] 26 mmol/L Normal 22-30 [facility] Comment on above: Order Comment: Speci men Type: BLOOD SPECIMENOrdering Facility: [facility] Address: [address] [place] [address] Performed By: #### 2 4323-8 ####[facility] LABCLIA [id number] [place] [address] Creatinine [Mass/Vol] 1.08 mg/dL Normal 0.73-1.22 [facility] Comment on above: Order Comment: Speci men Type: BLOOD SPECIMENOrdering Facility: [facility] Address: [address] [place], [place] [address] Performed By: #### 2 4323-8 ####[facility] LABCLIA [id number] [place] [address] Creatinine and Glomerular filtration rate.predicted panel (S/P/Bld) 66 mL/min/1.73m??? Normal >=60 [facility] Comment on above: Order Comment: Carli arthur Type: BLOOD SPECIMENOrdering Facility: [facility] Address: [address] [place] [address] Result Comment: Cristina mated Glomerular Filtration Rate (eGFR) is calculated using the 2020 CKD-EPI creatinine equation. This equation utilizes serum creatinine, sex, and age as parameters. The creatinine assay has traceable calibration to isotope dilution-mass spectrometry. Refer to KDIGO guidelines for clinical interpretation. In patients with unstable renal function, e.g. those with acute kidney injury, the eGFR may not accurately reflect actual GFR. Performed By: #### 2 4323-8 ####[facility] LABCLIA [id number] [place] [address] Glucose [Mass/Vol] 79 mg/dL Normal 74-99 [facility] Comment on above: Order Comment: Carli arthur Type: BLOOD SPECIMENOrdering Facility: [facility] Address: [address] [place] [address] Result Comment: The [place] [employer] (ADA) provides guidance for cutoff values for fasting glucose and random glucose. The ADA defines fasting as no caloric intake for at least 8 hours. Fasting plasma glucose results between 100 to 125 mg/dL indicate increased risk for diabetes (prediabetes).Fasting plasma glucose results greater than or equal to 126 mg/dL meet the criteria for diagnosis of diabetes. In the absence of unequivocal hyperglycemia, results should be confirmed by repeat testing. In a patient with classic symptoms of hyperglycemia or hyperglycemic crisis, random plasma glucose results greater than or equal to 200 mg/dL meet the criteria for diagnosis of diabetes.Reference: Standards of Medical Care in Diabetes 2016, [place] [employer]. Diabetes Care. 2016.39(Suppl 1). Performed By: #### 2 4323-8 ####[facility] LABCLIA [id number] [place] [address] Potassium [Moles/Vol] 4.5 mmol/L Normal 3.7-5.1 [facility] Comment on above: Order Comment: Speci men Type: BLOOD SPECIMENOrdering Facility: [facility] Address: [address] [place] [address] Performed By: #### 2 4323-8 ####[facility] LABCLIA [id number] [place] [address] Protein [Mass/Vol] 6.4 g/dL Normal 6.3-8.0 [facility] Comment on above: Order Comment: Speci men Type: BLOOD SPECIMENOrdering Facility: [facility] Address: [address] [place] [address] Performed By: #### 2 4323-8 ####[facility] LABCLIA [id number] [place] [address] Sodium [Moles/Vol] 145 mmol/L High 136-144 [facility] Comment on above: Order Comment: Speci men Type: BLOOD SPECIMENOrdering Facility: [facility] Address: [address] [place] [address] Performed By: #### 2 4323-8 ####[facility] LABCLIA [id number] [place] [address] Urea nitrogen [Mass/Vol] 27 mg/dL High 9-24 [facility] Comment on above: Order Comment: Speci men Type: BLOOD SPECIMENOrdering Facility: [facility] Address: [address] [place] [address] Performed By: #### 2 4323-8 ####[facility] LABCLIA [id number] [place] [address] Eosinophils/100 WBC Auto (Bl d)on 01-20-2024 Eosinophils/100 WBC (Bld) 10.1 % [facility] Erythrocyte distribution wid th Auto (RBC) [Ratio]on 01-20-2024 Erythrocyte distribution width (RBC) [Ratio] 13.2 % 11.5-15.0 [facility] Hematocrit Auto (Bld) [Volum e fraction]on 01-20-2024 Hematocrit (Bld) [Volume fraction] 39.2 % 39.0-51.0 [facility] Hemoglobin [Mass/volume] in Bloodon 01-20-2024 Hemoglobin (Bld) [Mass/Vol] 12.4 g/dL 13.0-17.0 [facility] Laboratory - Chemistry and C hemistry - challengeon 01-20-2024 Albumin [Mass/Vol] 3.8 g/dL 3.9-4.9 [facility] ALP [Catalytic activity/Vol] 71 U/L 38-113 [facility] ALT [Catalytic activity/Vol] 15 U/L 10-54 [facility] AST [Catalytic activity/Vol] 13 U/L 14-40 [facility] Bilirubin [Mass/Vol] 0.3 mg/dL 0.2-1.3 [facility] Calcium [Mass/Vol] 9.6 mg/dL 8.5-10.2 [facility] Chloride [Moles/Vol] 109 mmol/L 97-105 [facility] CO2 [Moles/Vol] 26 mmol/L 22-30 [facility] Creatinine [Mass/Vol] 1.08 mg/dL 0.73-1.22 [facility] Glucose [Mass/Vol] 79 mg/dL 74-99 [facility] Comment on above: The [place] Diabete s Association (ADA) provides guidance for cutoff values for fasting glucose and random glucose. The ADA defines fasting as no caloric intake for at least 8 hours. Fasting plasma glucose results between 100 to 125 mg/dL indicate increased risk for diabetes (prediabetes).Fasting plasma glucose results greater than or equal to 126 mg/dL meet the criteria for diagnosis of diabetes. In the absence of unequivocal hyperglycemia, results should be confirmed by repeat testing. In a patient with classic symptoms of hyperglycemia or hyperglycemic crisis, random plasma glucose results greater than or equal to 200 mg/dL meet the criteria for diagnosis of diabetes.Reference: Standards of Medical Care in Diabetes 2016, [place] [employer]. Diabetes Care. 2016.39(Suppl 1). Potassium [Moles/Vol] 4.5 mmol/L 3.7-5.1 [facility] Sodium [Moles/Vol] 145 mmol/L 136-144 [facility] Urea nitrogen [Mass/Vol] 27 mg/dL 9-24 [facility] Laboratory - Hematology and Cell countson 01-20-2024 Eosinophils (Bld) [#/Vol] 0.61 10*3/uL <0.46 [facility] Immature granulocytes/100 WBC (Bld) 0.3 % [facility] Leukocytes [#/volume] correc ramona for nucleated erythrocytes in Blood by Automated counon 01-20-2024 WBC corrected for nucl RBC Auto (Bld) [#/Vol] 6.05 k/uL 3.70-11.00 [facility] Lymphocytes Auto (Bld) [#/Vo l]on 01-20-2024 Lymphocytes (Bld) [#/Vol] 1.28 10*3/uL 1.00-4.00 [facility] Lymphocytes/100 WBC Auto (Bl d)on 01-20-2024 Lymphocytes/100 WBC (Bld) 21.2 % [facility] MCH Auto (RBC) [Entitic mass ]on 01-20-2024 MCH (RBC) [Entitic mass] 29.6 pg 26.0-34.0 [facility] MCHC Auto (RBC) [Mass/Vol]on 01-20-2024 MCHC (RBC) [Mass/Vol] 31.6 g/dL 30.5-36.0 [facility] MCV Auto (RBC) [Entitic vol] on 01-20-2024 MCV (RBC) [Entitic vol] 93.6 fL 80.0-100.0 [facility] Monocytes Auto (Bld) [#/Vol] on 01-20-2024 Monocytes (Bld) [#/Vol] 0.87 10*3/uL <0.87 [facility] Monocytes/100 WBC Auto (Bld) on 01-20-2024 Monocytes/100 WBC (Bld) 14.4 % [facility] Neutrophils Auto (Bld) [#/Vo l]on 01-20-2024 Neutrophils (Bld) [#/Vol] 3.22 10*3/uL 1.45-7.50 [facility] Neutrophils/100 WBC Auto (Bl d)on 01-20-2024 Neutrophils/100 WBC (Bld) 53.2 % [facility] No Panel Informationon 01-19 Estimated GFR (CKD-EPI) 66 mL/min/1.73m??? >=60 [facility] Comment on above: Estimated Glomerular Filtration Rate (eGFR) is calculated using the 2020 CKD-EPI creatinine equation. This equation utilizes serum creatinine, sex, and age as parameters. The creatinine assay has traceable calibration to isotope dilution-mass spectrometry. Refer to KDIGO guidelines for clinical interpretation. In patients with unstable renal function, e.g. those with acute kidney injury, the eGFR may not accurately reflect actual GFR. Immature Granulocyte # (Auto) <0.03 k/uL <0.10 [facility] Nucleated RBC Auto (Bld) [#/ Vol]on 01-20-2024 Nucleated RBC (Bld) [#/Vol] 10*3/uL <0.01 [facility] Nucleated erythrocytes [Pres ence] in Blood by Automated counton 01-20-2024 Nucleated RBC Auto Ql (Bld) 0.0 /100{WBC} [facility] Platelet mean volume Auto (B ld) [Entitic vol]on 01-20-2024 Platelet mean volume (Bld) [Entitic vol] 8.7 fL 9.0-12.7 [facility] Platelets Auto (Bld) [#/Vol] on 01-20-2024 Platelets (Bld) [#/Vol] 165 10*3/uL 150-400 [facility] Protein [Mass/volume] in Ser um or Plasmaon 01-20-2024 Protein [Mass/Vol] 6.4 g/dL 6.3-8.0 [facility] RBC Auto (Bld) [#/Vol]on RBC (Bld) [#/Vol] 4.19 10*6/uL 4.20-6.00 [facility] Serum or plasma anion gap de terminationon 01-20-2024 Anion gap [Moles/Vol] 10 mmol/L 9-18 [facility] CNCNPATEDon 01-17-[address] [facility] CNPNon 01-13-[address] [facility] Consultation Noteon 01-10-20 Consultation Note [id number] #1.00TIFF Normal [facility] CNPNon 01-09-[address] [facility] CNOVon 01-08-[address] [facility] CT CHEST WO IVCONon 01-08-20 CT CHEST WO IVCON Normal [facility] Chest WO [facility]on 01-[facility] Consult[facility] Noteon 01-07-20 Consultation Note [id number] #1.00TIFF Normal [facility] Basophils Auto (Bld) [#/Vol] on 01-03-2024 Basophils (Bld) [#/Vol] 0.05 10*3/uL <0.11 [facility] Basophils/100 WBC Auto (Bld) on 01-03-2024 Basophils/100 WBC (Bld) 0.7 % [facility] Blood manual differential co mment interpretation narrativeon 01-03-2024 Manual differential comment Joshua (Bld) [Interp] Auto [facility] CBC W Auto Differential pane l (Bld)on 01-03-2024 Basophils (Bld) [#/Vol] 0.05 10*3/uL <0.11 k/uL [facility] Basophils/100 WBC (Bld) 0.7 % C [facility] Differential cell count method Nom (Bld) Auto [facility] Eosinophils (Bld) [#/Vol] 0.49 10*3/uL High <0.46 k/uL [facility] Eosinophils/100 WBC (Bld) 7.1 % [facility] Erythrocyte distribution width (RBC) [Ratio] 12.8 % 11.5 - 15.0 % [facility] Hematocrit (Bld) [Volume fraction] 37.8 % Low 39.0 - 51.0 % [facility] Hemoglobin (Bld) [Mass/Vol] 12.3 g/dL Low 13.0 - 17.0 g/dL [facility] Immature granulocytes (Bld) [#/Vol] <0.10 k/uL [facility] Immature granulocytes/100 WBC (Bld) 0.1 % [facility] Lymphocytes (Bld) [#/Vol] 1.52 10*3/uL 1.00 - 4.00 k/uL [facility] Lymphocytes/100 WBC (Bld) 22.0 % [facility] MCH (RBC) [Entitic mass] 29.9 pg 26.0 - 34.0 pg [facility] MCHC (RBC) [Mass/Vol] 32.5 g/dL 30.5 - 36.0 g/dL [facility] MCV (RBC) [Entitic vol] 92.0 fL 80.0 - 100.0 fL [facility] Monocytes (Bld) [#/Vol] 1.09 10*3/uL High <0.87 k/uL [facility] Monocytes/100 WBC (Bld) 15.8 % C [facility] Neutrophils (Bld) [#/Vol] 3.76 10*3/uL 1.45 - 7.50 k/uL [facility] Neutrophils/100 WBC (Bld) 54.3 % [facility] Nucleated RBC (Bld) [#/Vol] <0.01 k/uL [facility] Nucleated RBC/100 WBC (Bld) [Ratio] 0.0 /100 WBC [facility] Platelet mean volume (Bld) [Entitic vol] 8.5 fL Low 9.0 - 12.7 fL [facility] Platelets (Bld) [#/Vol] 205 10*3/uL 150 - 400 k /uL [facility] RBC (Bld) [#/Vol] 4.11 10*6/uL Low 4.20 - 6.0 0 m/uL [facility] WBC (Bld) [#/Vol] 6.92 10*3/uL 3.70 - 11. 00 k/uL [facility] Basophils (Bld) [#/Vol] 0.05 10*3/uL Normal <0.11 [facility] Comment on above: Order Comment: Speci men Type: BLOOD SPECIMENOrdering Facility: [facility] Address: [address] [place] [address] Performed By: #### 5 7021-8 ####[facility] LABCLIA [id number] [place] [address] Basophils/100 WBC (Bld) 0.7 % Normal [facility] Comment on above: Order Comment: Speci men Type: BLOOD SPECIMENOrdering Facility: [facility] Address: [address] [place] [address] Performed By: #### 5 7021-8 ####[facility] LABCLIA [id number] [place] [address] Differential cell count method Nom (Bld) Auto Normal [facility] Comment on above: Order Comment: Speci men Type: BLOOD SPECIMENOrdering Facility: [facility] Address: [address] [place] [address] Performed By: #### 5 7021-8 ####[facility] LABCLIA [id number] [place] [address] Eosinophils (Bld) [#/Vol] 0.49 10*3/uL High <0.46 [facility] Comment on above: Order Comment: Speci men Type: BLOOD SPECIMENOrdering Facility: [facility] Address: [address] [place] [address] Performed By: #### 5 7021-8 ####[facility] LABCLIA [id number] [place] [address] Eosinophils/100 WBC (Bld) 7.1 % Normal [facility] Comment on above: Order Comment: Speci men Type: BLOOD SPECIMENOrdering Facility: [facility] Address: [address] [place] [address] Performed By: #### 5 7021-8 ####[facility] LABCLIA [id number] [place] [address] Erythrocyte distribution width (RBC) [Ratio] 12.8 % Normal 11.5-15.0 [facility] Comment on above: Order Comment: Speci men Type: BLOOD SPECIMENOrdering Facility: [facility] Address: [address] [place] [address] Performed By: #### 5 7021-8 ####[facility] LABCLIA [id number] [place] [address] Hematocrit (Bld) [Volume fraction] 37.8 % Low 39.0-51.0 [facility] Comment on above: Order Comment: Speci men Type: BLOOD SPECIMENOrdering Facility: [facility] Address: [address] [place] [address] Performed By: #### 5 7021-8 ####[facility] LABCLIA [id number] [place] [address] Hemoglobin (Bld) [Mass/Vol] 12.3 g/dL Low 13.0-17.0 [facility] Comment on above: Order Comment: Speci men Type: BLOOD SPECIMENOrdering Facility: [facility] Address: [address] [place] [address] Performed By: #### 5 7021-8 ####[facility] LABCLIA [id number] [place] [address] Immature granulocytes (Bld) [#/Vol] 10*3/uL Normal <0.10 [facility] Comment on above: Order Comment: Speci men Type: BLOOD SPECIMENOrdering Facility: [facility] Address: [address] [place] [address] Performed By: #### 5 7021-8 ####[facility] LABCLIA [id number] [place] [address] Immature granulocytes/100 WBC (Bld) 0.1 % Normal [facility] Comment on above: Order Comment: Speci men Type: BLOOD SPECIMENOrdering Facility: [facility] Address: [address] [place] [address] Performed By: #### 5 7021-8 ####[facility] LABCLIA [id number] [place] [address] Lymphocytes (Bld) [#/Vol] 1.52 10*3/uL Normal 1.00-4.00 [facility] Comment on above: Order Comment: Speci men Type: BLOOD SPECIMENOrdering Facility: [facility] Address: [address] [place] [address] Performed By: #### 5 7021-8 ####[facility] LABCLIA [id number] [place] [address] Lymphocytes/100 WBC (Bld) 22.0 % Normal [facility] Comment on above: Order Comment: Speci men Type: BLOOD SPECIMENOrdering Facility: [facility] Address: [address] [place] [address] Performed By: #### 5 7021-8 ####[facility] LABCLIA [id number] [place] [address] MCH (RBC) [Entitic mass] 29.9 pg Normal 26.0-34.0 [facility] Comment on above: Order Comment: Speci men Type: BLOOD SPECIMENOrdering Facility: [facility] Address: [address] [place] [address] Performed By: #### 5 7021-8 ####[facility] LABCLIA [id number] [place] [address] MCHC (RBC) [Mass/Vol] 32.5 g/dL Normal 30.5-36.0 [facility] Comment on above: Order Comment: Speci men Type: BLOOD SPECIMENOrdering Facility: [facility] Address: [address] [place] [address] Performed By: #### 5 7021-8 ####[facility] LABCLIA [id number] [place] [address] MCV (RBC) [Entitic vol] 92.0 fL Normal 80.0-100.0 C [facility] Comment on above: Order Comment: Speci men Type: BLOOD SPECIMENOrdering Facility: [facility] Address: [address] [place] [address] Performed By: #### 5 7021-8 ####[facility] LABCLIA [id number] [place] [address] Monocytes (Bld) [#/Vol] 1.09 10*3/uL High <0.87 [facility] Comment on above: Order Comment: Speci men Type: BLOOD SPECIMENOrdering Facility: [facility] Address: [address] [place] [address] Performed By: #### 5 7021-8 ####[facility] LABCLIA [id number] [place] [address] Monocytes/100 WBC (Bld) 15.8 % Normal [facility] Comment on above: Order Comment: Speci men Type: BLOOD SPECIMENOrdering Facility: [facility] Address: [address] [place] [address] Performed By: #### 5 7021-8 ####[facility] LABCLIA [id number] [place] [address] Neutrophils (Bld) [#/Vol] 3.76 10*3/uL Normal 1.45-7.50 [facility] Comment on above: Order Comment: Speci men Type: BLOOD SPECIMENOrdering Facility: [facility] Address: [address] [place] [address] Performed By: #### 5 7021-8 ####[facility] LABCLIA [id number] [place] [address] Neutrophils/100 WBC (Bld) 54.3 % Normal [facility] Comment on above: Order Comment: Speci men Type: BLOOD SPECIMENOrdering Facility: [facility] Address: [address] [place] [address] Performed By: #### 5 7021-8 ####[facility] LABCLIA [id number] [place] [address] Nucleated RBC (Bld) [#/Vol] 10*3/uL Normal <0.01 [facility] Comment on above: Order Comment: Speci men Type: BLOOD SPECIMENOrdering Facility: [facility] Address: [address] [place] [address] Performed By: #### 5 7021-8 ####[facility] LABCLIA [id number] [place] [address] Nucleated RBC/100 WBC (Bld) [Ratio] 0.0 /[address] [facility] Comment on above: Order Comment: Speci men Type: BLOOD SPECIMENOrdering Facility: [facility] Address: [address] [place] [address] Performed By: #### 5 7021-8 ####[facility] LABCLIA [id number] [place] [address] Platelet mean volume (Bld) [Entitic vol] 8.5 fL Low 9.0-12.7 [facility] Comment on above: Order Comment: Speci men Type: BLOOD SPECIMENOrdering Facility: [facility] Address: [address] [place] [address] Performed By: #### 5 7021-8 ####[facility] LABCLIA [id number] [place] [address] Platelets (Bld) [#/Vol] 205 10*3/uL Normal 150-400 [facility] Comment on above: Order Comment: Speci men Type: BLOOD SPECIMENOrdering Facility: [facility] Address: [address] [place] [address] Performed By: #### 5 7021-8 ####[facility] LABCLIA [id number] [place] [address] RBC (Bld) [#/Vol] 4.11 10*6/uL Low 4.20-6.00 [facility] Comment on above: Order Comment: Speci men Type: BLOOD SPECIMENOrdering Facility: [facility] Address: [address] [place] [address] Performed By: #### 5 7021-8 ####[facility] LABCLIA [id number] [place] [address] WBC (Bld) [#/Vol] 6.92 10*3/uL Normal 3.70-11.00 [facility] Comment on above: Order Comment: Speci men Type: BLOOD SPECIMENOrdering Facility: [facility] Address: [address] [place] [address] Performed By: #### 5 7021-8 ####[facility] LABCLIA [id number] [place] [address] CNOVSPon 01-03-[address] [facility] Comprehensive metabolic 2000 panelon 01-03-2024 Albumin [Mass/Vol] 3.9 g/dL 3.9 - 4.9 g/dL [facility] ALP [Catalytic activity/Vol] 68 U/L 38 - 113 U/L [facility] ALT [Catalytic activity/Vol] 17 U/L 10 - 54 U/L [facility] Anion gap [Moles/Vol] 8 mmol/L Low 9 - 18 mmol/L [facility] AST [Catalytic activity/Vol] 14 U/L 14 - 40 U/L [facility] Bilirubin [Mass/Vol] 0.2 mg/dL 0.2 - 1 .3 mg/dL [facility] Calcium [Mass/Vol] 9.5 mg/dL 8.5 - 10. 2 mg/dL [facility] Chloride [Moles/Vol] 104 mmol/L 97 - 10 5 mmol/L [facility] CO2 [Moles/Vol] 26 mmol/L 22 - 30 mmol/L [facility] Creatinine [Mass/Vol] 1.08 mg/dL 0.73 - 1.22 mg/dL [facility] Estimated Glomerular Filtration Rate 66 mL/min/1.73m >=60 mL/min/1.73m [facility] Glucose [Mass/Vol] 100 mg/dL High 74 - 99 mg/dL [facility] Potassium [Moles/Vol] 4.3 mmol/L 3.7 - 5.1 mmol/L [facility] Protein [Mass/Vol] 6.8 g/dL 6.3 - 8.0 g/dL [facility] Sodium [Moles/Vol] 138 mmol/L 136 - 144 mmol/L [facility] Urea nitrogen [Mass/Vol] 21 mg/dL 9 - 24 mg/dL [facility] Albumin [Mass/Vol] 3.9 g/dL Normal 3.9-4.9 [facility] Comment on above: Order Comment: Speci men Type: BLOOD SPECIMENOrdering Facility: [facility] Address: [address] [place] [address] Performed By: #### 2 4323-8 ####[facility] LABCLIA [id number] [place] [address] ALP [Catalytic activity/Vol] 68 U/L Normal 38-113 [facility] Comment on above: Order Comment: Speci men Type: BLOOD SPECIMENOrdering Facility: [facility] Address: [address] [place] [address] Performed By: #### 2 4323-8 ####[facility] LABCLIA [id number] [place] [address] ALT [Catalytic activity/Vol] 17 U/L Normal 10-54 [facility] Comment on above: Order Comment: Speci men Type: BLOOD SPECIMENOrdering Facility: [facility] Address: [address] [place] [address] Performed By: #### 2 4323-8 ####[facility] LABCLIA [id number] [place] [address] Anion gap [Moles/Vol] 8 mmol/L Low 9-18 [facility] Comment on above: Order Comment: Speci men Type: BLOOD SPECIMENOrdering Facility: [facility] Address: [address] [place] [address] Performed By: #### 2 4323-8 ####[facility] [facility] LABCLIA [id number] [place] [address] AST [Catalytic activity/Vol] 14 U/L Normal 14-40 [facility] Comment on above: Order Comment: Speci men Type: BLOOD SPECIMENOrdering Facility: [facility] Address: [address] [place] [address] Performed By: #### 2 4323-8 ####[facility] LABCLIA [id number] [place] [address] Bilirubin [Mass/Vol] 0.2 mg/dL Normal 0.2-1.3 [facility] Comment on above: Order Comment: Speci men Type: BLOOD SPECIMENOrdering Facility: [facility] Address: [address] [place] [address] Performed By: #### 2 4323-8 ####[facility] LABCLIA [id number] [place] [address] Calcium [Mass/Vol] 9.5 mg/dL Normal 8.5-10.2 [facility] Comment on above: Order Comment: Speci men Type: BLOOD SPECIMENOrdering Facility: [facility] Address: [address] [place] [address] Performed By: #### 2 4323-8 ####[facility] LABCLIA [id number] [place] [address] Chloride [Moles/Vol] 104 mmol/L Normal 97-105 [facility] Comment on above: Order Comment: Speci men Type: BLOOD SPECIMENOrdering Facility: [facility] Address: [address] [place] [address] Performed By: #### 2 4323-8 ####[facility] LABCLIA [id number] [place] [address] CO2 [Moles/Vol] 26 mmol/L Normal 22-30 [facility] Comment on above: Order Comment: Speci men Type: BLOOD SPECIMENOrdering Facility: [facility] Address: [address] [place], [place] [id number] Performed By: #### 2 4323-8 ####[facility] LABCLIA [id number] [place] [address] Creatinine [Mass/Vol] 1.08 mg/dL Normal 0.73-1.22 [facility] Comment on above: Order Comment: Speci men Type: BLOOD SPECIMENOrdering Facility: [facility] Address: [address] [place] [address] Performed By: #### 2 4323-8 ####[facility] LABCLIA [id number] [place] [address] Creatinine and Glomerular filtration rate.predicted panel (S/P/Bld) 66 mL/min/1.73m??? Normal >=60 [facility] Comment on above: Order Comment: Speci men Type: BLOOD SPECIMENOrdering Facility: [facility] Address: [address] [place] [address] Result Comment: Cristina mated Glomerular Filtration Rate (eGFR) is calculated using the 2020 CKD-EPI creatinine equation. This equation utilizes serum creatinine, sex, and age as parameters. The creatinine assay has traceable calibration to isotope dilution-mass spectrometry. Refer to KDIGO guidelines for clinical interpretation. In patients with unstable renal function, e.g. those with acute kidney injury, the eGFR may not accurately reflect actual GFR. Performed By: #### 2 4323-8 ####[facility] LABCLIA [id number] [place] [address] Glucose [Mass/Vol] 100 mg/dL High 74-99 [facility] Comment on above: Order Comment: Carli arthur Type: BLOOD SPECIMENOrdering Facility: [facility] Address: [address] [place] [address] Result Comment: The [place] Diabetes [employer] (ADA) provides guidance for cutoff values for fasting glucose and random glucose. The ADA defines fasting as no caloric intake for at least 8 hours. Fasting plasma glucose results between 100 to 125 mg/dL indicate increased risk for diabetes (prediabetes).Fasting plasma glucose results greater than or equal to 126 mg/dL meet the criteria for diagnosis of diabetes. In the absence of unequivocal hyperglycemia, results should be confirmed by repeat testing. In a patient with classic symptoms of hyperglycemia or hyperglycemic crisis, random plasma glucose results greater than or equal to 200 mg/dL meet the criteria for diagnosis of diabetes.Reference: Standards of Medical Care in Diabetes 2016, [place] [employer]. Diabetes Care. 2016.39(Suppl 1). Performed By: #### 2 4323-8 ####[facility] LABCLIA [id number] [place] [address] Potassium [Moles/Vol] 4.3 mmol/L Normal 3.7-5.1 [facility] Comment on above: Order Comment: Speci men Type: BLOOD SPECIMENOrdering Facility: [facility] Address: [address] [place] [address] Performed By: #### 2 4323-8 ####[facility] LABCLIA [id number] [place] [address] Protein [Mass/Vol] 6.8 g/dL Normal 6.3-8.0 [facility] Comment on above: Order Comment: Speci men Type: BLOOD SPECIMENOrdering Facility: [facility] Address: [address] [place] [address] Performed By: #### 2 4323-8 ####[facility] LABCLIA [id number] [place] [address] Sodium [Moles/Vol] 138 mmol/L Normal 136-144 [facility] Comment on above: Order Comment: Speci men Type: BLOOD SPECIMENOrdering Facility: [facility] Address: [address] [place] [address] Performed By: #### 2 4323-8 ####[facility] LABCLIA [id number] [place] [address] Urea nitrogen [Mass/Vol] 21 mg/dL Normal 9-24 [facility] Comment on above: Order Comment: Speci men Type: BLOOD SPECIMENOrdering Facility: [facility] Address: [address] [place] [address] Performed By: #### 2 4323-8 ####[facility] LABIA [id number] [place] [address] Eosinophils/100 WBC Auto (Bl d)on 01-03-2024 Eosinophils/100 WBC (Bld) 7.1 % [facility] Erythrocyte distribution wid th Auto (RBC) [Ratio]on 01-03-2024 Erythrocyte distribution width (RBC) [Ratio] 12.8 % 11.5-15.0 [facility] Hematocrit Auto (Bld) [Volum e fraction]on 01-03-2024 Hematocrit (Bld) [Volume fraction] 37.8 % 39.0-51.0 [facility] Hemoglobin [Mass/volume] in Bloodon 01-03-2024 Hemoglobin (Bld) [Mass/Vol] 12.3 g/dL 13.0-17.0 [facility] Laboratory - Chemistry and C hemistry - challengeon 01-03-2024 Albumin [Mass/Vol] 3.9 g/dL 3.9-4.9 [facility] ALP [Catalytic activity/Vol] 68 U/L 38-113 [facility] ALT [Catalytic activity/Vol] 17 U/L 10-54 [facility] AST [Catalytic activity/Vol] 14 U/L 14-40 [facility] Bilirubin [Mass/Vol] 0.2 mg/dL 0.2-1.3 [facility] Calcium [Mass/Vol] 9.5 mg/dL 8.5-10.2 [facility] Chloride [Moles/Vol] 104 mmol/L 97-105 [facility] CO2 [Moles/Vol] 26 mmol/L 22-30 [facility] Creatinine [Mass/Vol] 1.08 mg/dL 0.73-1.22 [facility] Glucose [Mass/Vol] 100 mg/dL 74-99 [facility] Comment on above: The [place] Diabete s Association (ADA) provides guidance for cutoff values for fasting glucose and random glucose. The ADA defines fasting as no caloric intake for at least 8 hours. Fasting plasma glucose results between 100 to 125 mg/dL indicate increased risk for diabetes (prediabetes).Fasting plasma glucose results greater than or equal to 126 mg/dL meet the criteria for diagnosis of diabetes. In the absence of unequivocal hyperglycemia, results should be confirmed by repeat testing. In a patient with classic symptoms of hyperglycemia or hyperglycemic crisis, random plasma glucose results greater than or equal to 200 mg/dL meet the criteria for diagnosis of diabetes.Reference: Standards of Medical Care in Diabetes 2016, [place] [employer]. Diabetes Care. 2016.39(Suppl 1). Potassium [Moles/Vol] 4.3 mmol/L 3.7-5.1 [facility] Sodium [Moles/Vol] 138 mmol/L 136-144 [facility] Urea nitrogen [Mass/Vol] 21 mg/dL 9 [facility] Laboratory - Hematology and Cell countson 01-03-2024 Eosinophils (Bld) [#/Vol] 0.49 10*3/uL <0.46 [facility] Immature granulocytes/100 WBC (Bld) 0.1 % [facility] Leukocytes [#/volume] correc ramona for nucleated erythrocytes in Blood by Automated counon 01-03-2024 WBC corrected for nucl RBC Auto (Bld) [#/Vol] 6.92 k/uL 3.70-11.00 [facility] Lymphocytes Auto (Bld) [#/Vo l]on 01-03-2024 Lymphocytes (Bld) [#/Vol] 1.52 10*3/uL 1.00-4.00 [facility] Lymphocytes/100 WBC Auto (Bl d)on 01-03-2024 Lymphocytes/100 WBC (Bld) 22.0 % [facility] MCH Auto (RBC) [Entitic mass ]on 01-03-2024 MCH (RBC) [Entitic mass] 29.9 pg 26.0-34.0 [facility] MCHC Auto (RBC) [Mass/Vol]on 01-03-2024 MCHC (RBC) [Mass/Vol] 32.5 g/dL 30.5-36.0 [facility] MCV Auto (RBC) [Entitic vol] on 01-03-2024 MCV (RBC) [Entitic vol] 92.0 fL 80.0-100.0 [facility] Monocytes Auto (Bld) [#/Vol] on 01-03-2024 Monocytes (Bld) [#/Vol] 1.09 10*3/uL <0.87 [facility] Monocytes/100 WBC Auto (Bld) on 01-03-2024 Monocytes/100 WBC (Bld) 15.8 % [facility] Neutrophils Auto (Bld) [#/Vo l]on 01-03-2024 Neutrophils (Bld) [#/Vol] 3.76 10*3/uL 1.45-7.50 [facility] Neutrophils/100 WBC Auto (Bl d)on 01-03-2024 Neutrophils/100 WBC (Bld) 54.3 % [facility] No Panel Informationon 01-02 Estimated GFR (CKD-EPI) 66 mL/min/1.73m??? >=60 [facility] Comment on above: Estimated Glomerular Filtration Rate (eGFR) is calculated using the 2020 CKD-EPI creatinine equation. This equation utilizes serum creatinine, sex, and age as parameters. The creatinine assay has traceable calibration to isotope dilution-mass spectrometry. Refer to KDIGO guidelines for clinical interpretation. In patients with unstable renal function, e.g. those with acute kidney injury, the eGFR may not accurately reflect actual GFR. Immature Granulocyte # (Auto) <0.03 k/uL <0.10 [facility] Nucleated RBC Auto (Bld) [#/ Vol]on 01-03-2024 Nucleated RBC (Bld) [#/Vol] 10*3/uL <0.01 [facility] Nucleated erythrocytes [Pres ence] in Blood by Automated counton 01-03-2024 Nucleated RBC Auto Ql (Bld) 0.0 /100{WBC} [facility] Platelet mean volume Auto (B ld) [Entitic vol]on 01-03-2024 Platelet mean volume (Bld) [Entitic vol] 8.5 fL 9.0-12.7 [facility] Platelets Auto (Bld) [#/Vol] on 01-03-2024 Platelets (Bld) [#/Vol] 205 10*3/uL 150-400 [facility] Protein [Mass/volume] in Ser um or Plasmaon 01-03-2024 Protein [Mass/Vol] 6.8 g/dL 6.3-8.0 [facility] RBC Auto (Bld) [#/Vol]on RBC (Bld) [#/Vol] 4.11 10*6/uL 4.20-6.00 [facility] Serum or plasma anion gap de terminationon 01-03-2024 Anion gap [Moles/Vol] 8 mmol/L 9-18 [facility] CNCNPATEDon 12-31-[address] [facility] CNOVon 12-31-[address] [facility] Reminderson 12-25-2023 Reminders - From: Lucero Sutherland To: EU - Recalls Dietrich; Sent: 12/25/2023 13:05:08 EST Show up: 03/21/2024 13:04:00 EDT Subject: cysto after readiation Due Date/Time: 04/06/2024 13:04:00 EDT Reminder/Recall Pt will need Cysto after radiation completion [facility] RAD - CT Reporton 12-18-2023 RAD - CT Report [id number] #1.00TIFF [facility] ED Note-Physicianon 12-17-19 ED Note-Physician [id number] #1.00TIFF [facility] Estimated glomerular filtrat ion rate (GFR) non- Americanon 12-17-2023 GFR/1.73 sq M.predicted among non-blacks MDRD (S/P/Bld) [Vol rate/Area] mL/min/{1.73_m2} >=60 [facility] Lab Reportson 12-17-2023 Lab Reports [id number] #1.00TIFF [facility] Laboratory - Chemistry and C hemistry - challengeon 12-17-2023 Creatinine [Mass/Vol] 1.15 mg/dL 0.70-1.30 [facility] GFR/1.73 sq M.predicted MDRD (S/P/Bld) [Vol rate/Area] mL/min/{1.73_m2} >=60 [facility] Urea nitrogen [Mass/Vol] 24.0 mg/dL 7.0-18.0 [facility] Ambulatory Visit Summaryon 0 12-16-2023 Ambulatory Visit Summary KENNEDY KONG :1935 Visit Date:12/16/2023 Ambulatory Visit Instructions Your Diagnosis 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 Hydrocele Your Care Team Attending Physician - KARLO CHOI, Kylie Restrepo Primary Care Physician - SAMEER KUMARI, NESTOR Primary Nurse - Brent ANDERSON, Maribel Keene This Is Your Medications List Contact prescribing physician if questions or concerns Non-Formulary Medication (beta prostate) aspirin (aspirin 81 mg Oral EC Tab) calcium carbonate (calcium (as carbonate) 600 mg oral tablet) carvedilol (carvedilol 6.25 mg Tab) cephalexin (cephalexin 500 mg Cap) clopidogrel (clopidogrel 75 mg Tab) potassium chloride (potassium chloride 20 mEq ER Tab) tamsulosin (Flomax 0.4 mg Cap) ticagrelor (Brilinta (ticagrelor) 90 mg oral tablet) Procedures Performed TURBT - Transurethral resection of bladder tumor (12/05/2023), Endoscopic destruction of bladder tumor by laser (12/13/2020), TURBT - Transurethral resection of bladder tumor (05/26/2020), Hydrocelectomy (2001), Cardiac catheterization, Cataract, colon resection, colonoscopy. Discharge Vitals Heart Rate (Peripheral) 65 Respiratory Rate 16 Blood Pressure 117/69 Height 179 cm Height 70 in Weight 80 kg Weight 176 lb BMI 24.97 What to do next You Need to Schedule the Following Appointments Follow Up with KARLO CHOI, Kylie Restrepo, URL When: Comments: referral to rad/onc Where: [facility] [address], [place] [address] [phone] Medications What How Much When Instructions Unchanged aspirin (aspirin 81 mg Oral EC Tab) Oral Contact prescribing physician if questions or concerns Unchanged calcium carbonate (calcium (as carbonate) 600 mg oral tablet) 1 Tablets By Mouth 2 times a day Contact prescribing physician if questions or concerns Unchanged carvedilol (carvedilol 6.25 mg Tab) 1 Tablets By Mouth 2 times a day Contact prescribing physician if questions or concerns Unchanged cephalexin (cephalexin 500 mg Cap) Contact prescribing physician if questions or concerns Unchanged clopidogrel (clopidogrel 75 mg Tab) 1 Tablets By Mouth Every day Contact prescribing physician if questions or concerns Unchanged Non-Formulary Medication (beta prostate) Contact prescribing physician if questions or concerns Unchanged potassium chloride (potassium chloride 20 mEq ER Tab) 1 Tablets By Mouth 2 times a day Contact prescribing physician if questions or concerns Unchanged tamsulosin (Flomax 0.4 mg Cap) 1 Capsules By Mouth Every day Contact prescribing physician if questions or concerns Unchanged ticagrelor (Brilinta (ticagrelor) 90 mg oral tablet) 60 EA, TAKE 1 TABLET BY MOUTH EVERY 12 HOURS FOR 30 DAYS Contact prescribing physician if questions or concerns Allergies No Known Allergies Problems Ongoing - Any problem that you are currently receiving treatment for. 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 colon ca resection hydrocele Patient Survey You may receive a survey via text or e-mail asking about your office visit. Please share your experience with us by completing your survey. We appreciate your feedback and thank you for choosing us for your care. Education Materials Bladder Cancer Bladder cancer is a condition where abnormal tissue (a tumor) grows in the bladder. The bladder is the organ that holds urine. Two tubes (ureters) carry urine from the kidneys to the bladder. The bladder wall is made of layers of tissue. Cancer that spreads through these layers of the bladder wall becomes more difficult to treat. What increases the risk? The following factors may make you more likely to develop this condition: ? Smoking. ? Working where there are risks (occupational exposures), such as working with rubber, leather, clothing fabric, dyes, chemicals, or paint. ? Being 55 years of age or older. ? Being male. ? Having long-term bladder inflammation. ? Having a history of cancer. This includes: ? A family history of bladder cancer. ? Having had bladder cancer before. ? Having had certain treatments for cancer before, such as: ? Medicines to kill cancer cells (chemotherapy). ? Strong X-ray beams or high-energy capsules to kill cancer cells and shrink tumors (radiation therapy). ? Having bee (more content not included)... Normal [facility] Patient Educationon 12-16-19 Patient Education Oncology Bladder Cancer Bladder cancer is a condition where abnormal tissue (a tumor) grows in the bladder. The bladder is the organ that holds urine. Two tubes (ureters) carry urine from the kidneys to the bladder. The bladder wall is made of layers of tissue. Cancer that spreads through these layers of the bladder wall becomes more difficult to treat. What increases the risk? The following factors may make you more likely to develop this condition: ? Smoking. ? Working where there are risks (occupational exposures), such as working with rubber, leather, clothing fabric, dyes, chemicals, or paint. ? Being 55 years of age or older. ? Being male. ? Having long-term bladder inflammation. ? Having a history of cancer. This includes: ? A family history of bladder cancer. ? Having had bladder cancer before. ? Having had certain treatments for cancer before, such as: ? Medicines to kill cancer cells (chemotherapy). ? Strong X-ray beams or high-energy capsules to kill cancer cells and shrink tumors (radiation therapy). ? Having been exposed to arsenic. This is a poisonous substance. What are the signs or symptoms? Early symptoms of this condition include: ? Blood in your urine. ? Pain when urinating. ? Infections of your urinary system (urinary tract infections or UTIs) that happen often. ? Having to urinate sooner or more often than normal. Late symptoms of this condition include: ? Not being able to urinate. ? Pain on one side of your lower back. ? Loss of appetite. ? Weight loss. ? Tiredness (fatigue). ? Swelling in your feet. ? Bone pain. How is this diagnosed? This condition is diagnosed based on: ? Your medical history. ? A physical exam. ? Lab tests, such as urine tests. ? Imaging tests. ? Your symptoms. You may also have other tests or procedures, such as: ? A cystoscopy. This involves putting a narrow tube into your urethra. The urethra is the organ that carries urine from your bladder to the outside of your body. This procedure is done to view the lining of your bladder for tumors. ? A biopsy. This involves removing a tissue sample to look at under a microscope to check for cancer. Blood tests or imaging tests may be needed. These show how far into the bladder wall cancer has grown, and if cancer has spread to any other parts of your body. Tests may include: ? CT scan. ? MRI. ? Bone scan. ? X-ray. How is this treated? Your health care provider may recommend one or more types of treatment based on the stage of your cancer. The most common treatments are: ? Surgery to remove the cancer. Types of surgeries include: ? Removing a tumor on the inside wall of the bladder (transurethral resection). ? Removing the bladder (cystectomy). ? Radiation therapy. This is often combined with chemotherapy. ? Chemotherapy. ? Immunotherapy. This uses medicines to help your body's disease-fighting system (immune system) destroy cancer cells. Follow these instructions at home: ? Take iicn-kki-qtqljbo and prescription medicines only as told by your health care provider. ? If you were prescribed an antibiotic medicine, take it as told by your health care provider. Do not stop using the antibiotic even if you start to feel better. ? Eat a healthy diet. Some treatments might affect your appetite. ? Do not use any products that contain nicotine or tobacco. These products include cigarettes, chewing tobacco, and vaping devices, such as e-cigarettes. If you need help quitting, ask your health care provider. ? Consider joining a support group. This may help you learn to deal with the stress of having bladder cancer. ? Tell your cancer care team if you develop side effects. Your team may be able to recommend ways to get relief. ? Keep all follow-up visits. This is important. Where to find more information ? [place] [employer] (ACS): cancer.org ? National [employer] [place] (NCI): cancer.gov Contact a health care provider if: ? You have symptoms of a UTI. These include: ? Fever. ? Chills. ? Weakness. ? Muscle aches. ? Pain in your abdomen. ? Urge to urinate that is stronger and happens more often than normal. ? Burning in the bladder or urethra when you urinate. Get help right away if: ? There is blood in your urine. ? You cannot urinate. ? You have severe pain or other symptoms that do not go away. Summary ? Bladder cancer is a condition where tumors grow in the bladder. ? Diagnosis is based on your medical history, a physical exam, lab tests, imaging tests, and your symptoms. ? Your health care provider may recommend one or more types of treatment based on the stage of your cancer. ? Consider joining a support group. This may help you learn to deal with the stress of having bladder cancer. This information is not intended to replace advice given to you by your health care provider. Make sure you discuss any questions you have wi (more content not included)... Normal [facility] Urology Office/Clinic Noteon 12-16-2023 Urology Office/Clinic Note Chief Complaint Gross hematuria and recurent bladder papillary carcinoma HPI Staff F/u to review pathology from TURBT done 12/05/23. Dx: recurrent bladder papillary carcinoma, asymptomatic microhematuria and BPH with obstruction/LUTS. Tamsulosin 0.4mg QD. Pt was seen in [facility] ED 12/14/23 for gross hematuria. Urine culture done at that time was positive with >100,000 E-coli and >100,000 Klebsiella pneumoniae. Treated with Cephalexin 500mg BID for 7 days. Pt states that after his TURBT the blood he was seeing cleared up and then he started seeing large amounts of blood this past Saturday. Not having any leaking around the catheter at this time. No pain complaints at this time. History of Present Illness Tests reviewed: reviewed path report I have reviewed the previous health record information and history for this patient from Dr. Dietrich. I have reviewed and verified the staff HPI to be accurate for this encounter. Review of Systems PHQ Score Initial Depression Screen Score: 0 SCORE ROS - Provider Constitutional: denies weight loss, denies hot flashes. Eyes: denies eye problems. Gastrointestinal: denies nausea, denies vomiting. Cardiovascular: denies chest pain or angina. Integumentary: no dryness Musculoskeletal: denies musculoskeletal symptoms. ENMT: denies otolaryngeal symptoms. Respiratory: no shortness of breath. Heme/Lymph: denies easy bleeding tendency, denies easy bruising tendency. Psychiatric: no confusion, no anxiety. Genitourinary: See HPI. Physical Exam Vitals & Measurements HR: 65(Peripheral) RR: 16 BP: 117/69 HT: 70 in HT: 179 cm WT: 80 kg WT: 176 lb BMI: 24.97 General Appearance: alert, no distress, well nourished, well developed male. Genitourinary: normal scrotum, normal testes, normal urethra, normal epididymis, normal vas deferens/spermatic cord. Flank Pain: none. Bladder: nonpalpable. Assessment/Plan Pt here with his sister today. 1. 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 Last BCG given 09/26/20. S/p laser of bladder tumor 12/13/20 - Low grade papillary urothelial carcinoma, superficially sampled. Negative FISH/Cytol 07/10/21. S/p cystoscopy 07/17/21. Mitomycin tx 10/23/21. S/p Cysto 03/05/22 - No evidence of bladder tumors or erythematous mucosal lesions. Mitomycin tx 04/30/22. S/p Cysto 06/11/22 - No evidence of any bladder tumors or stones. Mitomycin tx 09/20/22. S/p Cysto/UD 11/12/22 - No classic papillary TCC tumors. 1.5-2cm raised, velvety red patch on back wall near dome. Concerning for recurrence. Negative FISH/Cytol 11/02/22. Canceled TURBT due to inability to urinate after prior cysto. Was advised to repeat cyst instead. S/p Cysto 01/07/23 - No evidence of papillary tumors or erythematous mucosal lesions. Mitomycin tx 04/11/23. Cytol 05/10/23 - Isolated atypical urothelial cells. Positive FISH. S/p Cysto 05/14/23 - Papillary TCC appearing tumors at bladder neck. Calcification adhered to tumors. S/p TURBT 12/05/23 - High-grade papillary urothelial carcinoma. Muscularis propria invasion identified. No definitive lymphovascular invasion noted. [facility] ER visit 12/14/23 due to gross hematuria, pain, and fever. Ucx - >100k E coli and >100k Klebsiella pneumoniae. Pt's catheter was changed and was discharged with Keflex x7 days. Pt's catheter has been removed in office with no complications. I had a long session of counseling with the patient today. The pathology report reveals that bladder cancer is present, and I discussed the nature of this cancer in detail, including the grade of the cancer and the apparent stage, utilizing diagrams. We discussed the different treatment options for the cancer, based on the grade and stage of tumor. Advised pt he has high-grade bladder cancer with muscle invasion which will definitely require treatment. Discussed treatment options, such as radiation or surgery. Also discussed referral to rad/onc or tertiary care center for surgery. Advised pt he will need imaging done to help with staging. -Pt to decide on referral to rad/onc or surgery pending image results -Cath removal IO today. They have been advised to drink plenty of fluids. Pt. has been instructed to call the office in the event that they are not able to void in the next 4-6 hrs. Advised pt. to go to the ER if they experience any severe bleeding, fever over 101, and/or shaking chills. 2. BPH with obstruction/lower urinary tract symptoms (N40.1: Benign prostatic hyperplasia with lower urinary tract symptoms) Did CIC in the past, 2020. Continues taking Tamsulosin 0.4mg qd. 3. Hydrocele (N43.3: Hydrocele, unspecified) S/p L hydrocelectomy 08/10/21 - Negative pathology. Follow-up With When Contact Information Kylie DIETRICH MD, [facility] [address], [place] [address]- [phone] Additional Instructions: Referral pending image r (more content not included)... [facility] Comment on above: Result Comment: Elec tronically Signed By: Kylie DIETRICH MD\.br\Date and Time Signed: 12/16/23 10:44 EST\.br\Electronically Co-Signed By: Bonnie Castillo\.br\Date and Time Co-Signed: 12/16/23 10:43 EST Amorphous urine sedimenton 0 12-14-2023 Amorphous sediment LM Ql (Urine sed) FEW [facility] Automated epithelial cells c ount in urine sediment (number/area)on 12-14-2023 Epithelial cells Auto (Urine sed) [#/Area] NONE SEEN #/LPF NONE/RARE [facility] Automated leukocytes count i n urine sediment (number/area)on 12-14-2023 WBC Auto (Urine sed) [#/Area] 50-75 #/HPF 0-2 [facility] Automated urine specific gra vity by refractometryon 12-14-2023 Specific gravity Refractometry automated (U) [Rel density] >=1.030 1.005-1.025 [facility] Bilirubin Auto test strip (U ) [Mass/Vol]on 12-14-2023 Bilirubin (U) [Mass/Vol] Negative NEGATIVE [facility] Casts typing in urine sedime nt by light microscopyon 12-14-2023 Casts LM Nom (Urine sed) NONE SEEN #/LPF NONE SEEN [facility] Color Auto (U)on 12-14-2023 Color (U) BROWN YELLOW [facility] Ketones Auto test strip (U) [Mass/Vol]on 12-14-2023 Ketones (U) [Mass/Vol] Negative NEGATIVE [facility] - Microbiology an d Antimicrobial susceptibilityOrdered By: Nestor Estrella on 12-14-2023 Bacteria identified Cx Nom (U) [facility] Mucus LM Ql (Urine sed)on Mucus Ql (Urine sed) SMALL NONE SEEN [facility] No Panel Informationon 12-14 Urine Culture Reflexed YES [facility] Urine Microscopic Review YES [facility] Protein Auto test strip (U) [Mass/Vol]on 12-14-2023 Protein (U) [Mass/Vol] 100 mg/dL NEG/TRACE [facility] Specific gravity Auto test s trip (U) [Rel density]on 12-14-2023 Specific gravity (U) [Rel density] CLEAR CLEAR [facility] Urine bacteria detection by automated methodon 12-14-2023 Bacteria Auto Ql (U) MODERATE #/HPF NONE SEEN [facility] Urine glucose measurement by test strip (mass/volume)on 12-14-2023 Glucose Test strip (U) [Mass/Vol] Negative NEGATIVE [facility] Urine hemoglobin detection b y automated test stripon 12-14-2023 Hemoglobin Auto test strip Ql (U) LARGE NEGATIVE [facility] Urine nitrite detection by a utomated test stripon 12-14-2023 Nitrite Auto test strip Ql (U) SMALL NEGATIVE [facility] Nitrite Auto test strip Ql (U) Positive NEGATIVE [facility] Urine sediment crystal ident ification by light microscopyon 12-14-2023 Crystals LM Nom (Urine sed) Seen #/HPF None Seen [facility] Urine sediment leukocyte cou nt by microscopy (number/high power field)on 12-14-2023 WBC LM.HPF (Urine sed) [#/Area] 5-10 #/HPF NONE SEEN [facility] Urobilinogen Auto test strip (U) [Mass/Vol]on 12-14-2023 Urobilinogen Qn (U) 0.2 {Dae'U}/dL 0.2-1.0 [facility] pH Auto test strip (U)on pH (U) 6.0 [pH] 5.0-9.0 [facility] IntraOperative Documentson 0 12-11-2023 IntraOperative Documents [id number] 7#1.00TIFF [facility] Postoperative Documentson Postoperative Documents [id number] 19#1.00TIFF [facility] Consent for Anesthesiaon Consent for Anesthesia [id number] 5#1.00TIFF [facility] Consultation Noteon 12-06-19 Consultation Note [id number] #1.00TIFF [facility] Discharge Instructionson Discharge Instructions [id number] 7#1.00TIFF [facility] IntraOperative Documentson 0 12-06-2023 IntraOperative Documents [id number] 9#1.00TIFF [facility] Main OR Intraoperative Recor don 12-06-2023 Main OR Intraoperative Record IntraOp Document Type FT Summary Primary Physician: Kylie DIETRICH MD Finalized Date/Time: 12/06/23 11:15:59 Pt. Name: AIDENARSHKENNEDY/Sex: 1935 Male Med Rec #: [id number] Physician: Kylie DIETRICH MD Financial #: [id number] Pt. Type: A Room/Bed: [place] [address] Admit/Disch: 12/05/23 10:01:50 - 12/05/23 15:00:00 Institution: [...] 1 Entry 2 Entry 3 Case Attendee Ori DNP, CREDIT CONTROL ASSISTANT, Queen KARLO CHOI, Shar Reyes Ii NWesley Role Performed CREDIT CONTROL ASSISTANT Surgeon - Primary Boiler Repair Supervisor - Primary Time In 12/05/23 11:33:00 12/05/23 11:33:00 12/05/23 11:33:00 Time Out 12/05/23 12:46:00 12/05/23 12:46:00 12/05/23 12:46:00 Procedure CYSTOSCOPY CYSTOSCOPY CYSTOSCOPY TURB(Bilateral), TURB(Bilateral), TURB(Bilateral), CYSTOSCOPY CYSTOSCOPY CYSTOSCOPY URETEROSCOPY(Bilater al), URETEROSCOPY(Bilater al), URETEROSCOPY(Bilater al), CYSTOSCOPY URETHRAL CYSTOSCOPY URETHRAL CYSTOSCOPY URETHRAL DILATATION(Bilateral ) DILATATION(Bilateral ) DILATATION(Bilateral ) Comments dr mart supervising out of room for lunch [phone] Last Modified By: Shar Montanez Ii, Alfons Ii F Letrondo, Alfons Ii F 12/05/23 12:51:32 12/05/23 12:51:32 12/05/23 12:51:32 Entry 4 Entry 5 Entry 6 Case Attendee Umu SENIOR DATA MODELER, Jaswinder Munoz RN, Lashaun Munoz SENIOR DATA MODELER, Chrystal Keene Role Performed Scrub - Primary Boiler Repair Supervisor - Relief Scrub - Relief Time In 12/05/23 11:33:00 12/05/23 11:40:00 12/05/23 11:50:00 Time Out 12/05/23 12:46:00 12/05/23 12:30:00 12/05/23 12:25:00 Procedure CYSTOSCOPY CYSTOSCOPY CYSTOSCOPY TURB(Bilateral), TURB(Bilateral), TURB(Bilateral), CYSTOSCOPY CYSTOSCOPY CYSTOSCOPY URETEROSCOPY(Bilater al), URETEROSCOPY(Bilater al), URETEROSCOPY(Bilater al), CYSTOSCOPY URETHRAL CYSTOSCOPY URETHRAL CYSTOSCOPY URETHRAL DILATATION(Bilateral ) DILATATION(Bilateral ) DILATATION(Bilateral ) Comments out of room for lunch [phone] Last Modified By: Shar Montanez Ii, Alfons Ii F Letrondo, Alfons Ii F 12/05/23 12:51:32 12/05/23 12:51:32 12/05/23 12:51:32 Perioperative [...] PreOp Antibiotic Yes Time Out Ori DNP, CREDIT CONTROL ASSISTANT, Marroquin Given Participants N., KARLO CHOI, Kylie Restrepo, Shar Montanez Ii, Jaswinder Sanz CST, Crosby RN, Lashaun Em [...] Primary Procedure Yes No No Primary Surgeon KRALO CHOI, Kylie DIETRICH MD, Kylie DIETRICH MD, Kylie Restrepo Start 12/05/23 11:51:00 12/05/23 11:51:00 12/05/23 11:51:00 Stop 12/05/23 12:40:00 12/05/23 12:40:00 12/05/23 12:40:00 Anesthesia Type General General General Surgical Service Urology Urology Urology Wound Class 2 - Clean-Contaminated 2 - Clean-Contaminated 2 - Clean-Contaminated Last Modified By: Shar Montanez Ii F Shar Montanez Ii F Shar Montanez Ii F 12/05/23 12:52:00 12/05/23 12:52:05 12/05/23 12:52:00 General Case Data FT Pre-Care Text: Classifies surgic (more content not included)... [facility] Physician Orderon 12-06-2023 Physician Order [id number] 7#1.00TIFF [facility] Preoperative Documentson Preoperative Documents [id number] 4#1.00TIFF [facility] Progress Note-Physicianon Progress Note-Physician Patient: KENNEDY [...] UTI (urinary tract infection) / SNOMED CT 830246930 / Confirmed Urinary incontinence / SNOMED CT 4031299639 / Confirmed Trigeminal neuralgia of right side of face / SNOMED CT 19382646 / Confirmed Chronic venous insufficiency / SNOMED CT 22346037 / Confirmed Osteoarthritis of right hip / SNOMED CT 1028655840 / Confirmed Bladder tumor / SNOMED CT 779647 / Confirmed Myocardial infarct / SNOMED CT 06817229 / Confirmed Bladder cancer / SNOMED CT 7548592130 / Confirmed Lumbar spondylosis / SNOMED CT 062624089 / Confirmed Hyperlipidemia / SNOMED CT 37908208 / Confirmed Right hip pain / SNOMED CT 00834266 / Confirmed History of ulcerative colitis / SNOMED CT 809437984 / Confirmed Gross hematuria / SNOMED CT 070753681 / Confirmed Hydrocele / SNOMED CT 9732005726 / Confirmed Renal cyst / SNOMED CT 6488685228 / Confirmed Coronary artery disease / SNOMED CT 17992896 / Confirmed Chronic kidney disease / SNOMED CT 1643482238 / Confirmed Recurrent bladder papillary carcinoma / SNOMED CT 403224268 / Confirmed BMI 24.0-24.9, adult / SNOMED CT 4194874352 / Confirmed BPH with obstruction/lower urinary tract symptoms / SNOMED CT 6631990533 / Confirmed Asymptomatic microscopic hematuria / SNOMED CT 4988992890 / Confirmed Resolved: hydrocele Resolved: colon ca resection Canceled: Urge incontinence / SNOMED CT 865525063 Canceled: Urinary incontinence without sensory awareness / SNOMED CT 3178676934 Histories Procedure history: Endoscopic destruction of bladder tumor by laser EVOLVE ([id number]) on 12/13/2020 at 85 Years. TURBT - with left ureteroscopy and left stent placement ([id number]) on 05/26/2020 at 84 Years. Hydrocelectomy (25319521) in 2001 at 67 Years. colon resection. colonoscopy. Cataract (204110376). Comments: 10/17/2010 12:31 EST - Martha Mazariegos left Cardiac catheterization with stent ([id number]). Social History Social & Psychosocial Habits Alcohol [...] adequate air exchange. Cardiovascular: Regular rhythm. Plan [employer]hesi[employer] (ASA) physical status classification: Class III. Anesthetic Preoperative Plan: Anesthesia General. [facility] Comment on above: Result Comment: Elec tronically Signed By: Maksim Mart Jr, DO\.br\Date and Time Signed: 12/06/23 15:53 EST Progress Note-Physician Patient: KENNEDY KONG Age: 88 years Sex: Male : 1935 Associated Diagnoses: None Author: Maksim Mart Jr, DO Postoperative Information Postoperative disposition: Postoperative disposition: To PACU. Optimetrix number: Optimetrix number [phone]. Anesthetic utilized: General. Health Status Allergies: Allergic [...] when meets criteria ( To home ). [facility] Comment on above: Result Comment: Elec tronically Signed By: Barron Crawford DO, Maksim Keene\.br\Date and Time Signed: 12/06/23 15:51 EST Consent for Procedure/Surger yon 12-05-2023 Consent for Procedure/Surgery [id number] 6#1.00TIFF [facility] Consent for Treatmenton 11-21 Consent for Treatment [id number] #1.00TIFF [facility] Discharge Instructionson Discharge Instructions KENNEDY KONG Jeremi :1935 Visit Date:12/05/2023 Inpatient Discharge Instructions Your [...] bleeding, Temperature above 101.5 degrees Pharmacy Information [facility] [place] Discharge Instructions Discharge Instructions Previously Scheduled Follow-Up Appointments Saturday 9:00 AM EST With: [facility] [address] [place] [address] [place] [address]- \.br\ Medications\.b r\ What How Much When [...] including vitamins, herbs, eye drops, creams, and hxhu-maa-ztahh er medicines.\.br \ ? \.br\ Any problems [...] you to take them.\.br\ ? \.br\ Taking chli-wnl-pksxb er medicines, vitamins, herbs, and supplements.\. br\ [...] of the resectoscope.\ .br\ ? \.br\ [facility] Comment on above: Result Comment: Elec tronically Signed By: Jamel ANDERSON, Benedicto Cortez\.br\Date and Time Signed: 12/05/23 13:38 EST H&P Updateon 12-05-2023 H&P Update [id number] 0#1.00TIFF [facility] Main OR PACU I Recordon 11-21 Main OR PACU I Record PACU Phase I Document Type FT Summary Primary Physician: Kylie DIETRICH MD Finalized Date/Time: 12/05/23 13:31:22 Pt. Name: KENNEDY KONG /Sex: 1935 Male Med Rec #: [id number] Physician: Kylie DIETRICH MD Financial #: [id number] Pt. Type: A Room/Bed: [place] [address] Admit/Disch: 12/05/23 10:01:50 - Institution: Case Times [...] I Outcomes Met? Yes Last Modified By: Andrzej ANDERSON, Lexi Wynne 12/05/23 13:31:09 Post-Care Text: The patient demonstrates [...] By: Lexi Donnelly RN 12/05/23 13:31 [facility] Main OR Preoperative Recordo n 12-05-2023 Main OR Preoperative Record PreOp Document Type FT Summary Primary Physician: Kylie DIETRICH MD Finalized Date/Time: 12/05/23 11:52:12 Pt. Name: KENNEDY KONG /Sex: 1935 Male Med Rec #: [id number] Physician: Kylie DIETRICH MD Financial #: [id number] Pt. Type: A Room/Bed: [facility]/ Admit/Disch: 12/05/23 10:01:50 - Institution: Case Times [...] By: Shar Montanez Ii 12/05/23 11:52 [facility] Monitor Recordon 12-05-2023 Monitor Record [id number] 0#1.00TIFF [facility] Monitor Record [id number] 3#1.00TIFF [facility] Operative Reporton 4 Operative Report Patient: KENNEDY KONG Age: 88 years Sex: Male : 1935 Associated Diagnoses: None Author: Kylie DIETRICH MD Postoperative Information Procedure: 1. Cystoscopy. 2. Urethral dilation with Ochoa sounds to 30 Nicaraguan. 3. Transurethral resection of bladder tumor approximately [...] ureter.. Specimens Removed: Bladder tumor. Prosthesis: 22 [place]uan Saldaña catheter. . Estimated Blood Loss: 5 [...] fashion. 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 I then passed a Glidewire through the scope and then through the lumen of the stricture and into the bladder. I then removed the scope. I then used Ochoa sounds and dilated him from 20 [place]uan up to 30 Nicaraguan. I then was able to pass the [...] the cystoscope. I then passed a 26 [place]uan Olympus resectoscope with the standard bipolar loop [...] the resectoscope. I then passed a 22 [place]uan Saldaña catheter over the wire into the bladder. The wire was removed and 15 cc of fluid was placed in the balloon. It drained clear. The anesthetic was then reversed. He was then transferred to a [place] bed and wheeled to PACU in stable condition.. [facility] Comment on above: Result Comment: Elec tronically Signed By: KARLO CHOI, Kylie Wing.juliet\Date and Time Signed: 12/05/23 12:56 EST Outside Recordson 12-05-2023 Outside Records [id number] 2#1.00TIFF [facility] Patient Education - Texton 0 12-05-2023 [...] cotton underwear to absorb moisture and keep gizzard skin remover. 6. Keep the drainage bag below the [...] is th (more content not included)... [facility] ECG 12-Leadon 12-02-2023 ECG 12-Lead [id number] #1.00TIFF [facility] Lab Reportson 12-02-2023 Lab Reports [id number] #1.00TIFF [facility] Lab Reports [id number] #1.00TIFF [facility] RAD - MISCon 11-29-2023 RAD - MISC [id number] #1.00TIFF [facility] Consent for Procedure/Surger yon 11-18-2023 Consent for Procedure/Surgery [id number]# 1.00TIFF [facility] Consent for Procedure/Surger yon 11-15-2023 Consent for Procedure/Surgery [id number]# 1.00TIFF [facility] Reminderson 11-13-2023 Reminders - From: Lucero Sutherland To: MERYL Dietrich; Cc: Lucero Sutherland; Sent: 05/21/2023 11:05:08 EDT Show up: 09/20/2023 11:05:00 EST Subject: sched turbt Due Date/Time: 10/07/2023 11:05:00 EST Reminder/Recall 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 He cannot stop ASA/Brilinta for 6 months. He needs sched for TURBT once cleared by Dr. Morgan. l/m on pts home machine.LG Patient sched for 12/05/[address] [facility]. Confirmation mailed to pt.LG [facility] Consultation Noteon 11-12-19 Consultation Note [id number] #1.00TIFF [facility] Formson 11-08-2023 Forms [id number] #1.00TIFF [facility] Blood Urea Nitrogenon 2023 Urea nitrogen [Mass/Vol] 19 mg/dL Normal - [facility] Comment on above: Order Comment: STAT FOR CT Performed By: #### C REAT, BUN #### [facility] [address] enterographyon 10-23-2023 CT enterography [facility] Main [place] [address] [place] [address] CT Scan Report Signed Patient: Kennedy Kong MR#: [id number] 1435 : 1935 Acct:[id number] Age/Sex: 88 / M ADM Date: 10/23/23 Loc: CT Room: Type: [facility] Attending Dr: Zofia Gates MD Copies to: [...] Randal Villarreal M.D.10/23/2023 4:06 PM Dictation Location: [place] [address] Transcribed By: [facility] 10/23/23 4565 Dictated By: Randal Villarreal DO 10/23/23 1549 Signed By: 10/23/23 1606 Normal [facility] Calprotectin, Fecalon 2023 Calprotectin, Fecal 35 Normal 0-120 [facility] Comment on above: Result Comment: Conc entration Interpretation Follow-Up < 5 - 50 ug/g Normal None >50 -120 ug/g Borderline Re-evaluate in 4-6 weeks >120 ug/g Abnormal Repeat as clinically indicated Performed at: - [address] [id number] [employer] Serv[employer]: Danielle Carrington MD, Phone: [phone] PERFORMED BY: [place] [address] PATHOLOGIST HEM INSPECTOR JAMIE MADISON M.D. Performed By: #### H S TROP, LIPID, CBC, BMP #### [facility] [address] [place], [place] [address] [place] Creatinineon 10-23-2023 Creatinine [Mass/Vol] 1.05 mg/dL Normal 0.70-1.30 [facility] Comment on above: Order Comment: STAT FOR CT Performed By: #### H S TROP, LIPID, CBC, BMP #### [facility] [address] [place], [place] [address] [place] GFR/1.73 sq M.predicted MDRD (S/P/Bld) [Vol rate/Area] mL/min/{1.73_m2} Normal [facility] Comment on above: Order Comment: STAT FOR CT Result Comment: PERF ORMED BY: [place] [address] PATHOLOGIST HEM INSPECTOR JAMIE MADISON M.D. Performed By: #### H S TROP, LIPID, CBC, BMP #### [facility] [address] [place], [place] [address] [place] Creatinine [Mass/volume] in Serum or PlasmaOrdered By: Zofia Gates on 10-23-2023 Creatinine [Mass/Vol] 1.05 mg/dL 0.70-1.30 [facility] No Panel InformationOrdered By: Zofia Gates on 10-23-2023 Estimated GFR (CKD-EPI) > 60.0 mL/Min [facility] Creatinine Clearance (Chem N/A [facility] Urea nitrogen [Mass/volume] in Serum or PlasmaOrdered By: Zofia Gates on 10-23-2023 Urea nitrogen [Mass/Vol] 19 mg/dL 05-14 [facility] LACTATE, BLOODOrdered By: Sa ceasar Dorsey on 10-10-2023 Interpretation and review of laboratory results Normal [facility] Lactate [Moles/Vol] 1.6 mmol/L 0.5 - 1. 6 mmol/L [facility] LT BLUE TOP TUBEon [facility] CBC AND ELECTRONIC DIFFon Basophils (Bld) [#/Vol] K/uL 0.00 - 0.09 K/uL [facility] Basophils/100 WBC (Bld) 0.2 % [facility] Differential cell count method Nom (Bld) Electronic Differential [facility] Eosinophils (Bld) [#/Vol] 0.04 10*3/uL 0.00 - 0.48 K/uL [facility] Eosinophils/100 WBC (Bld) 0.4 % [facility] Erythrocyte distribution width (RBC) [Ratio] 13.9 % 10.9 - 14.3 % [facility] Hematocrit (Bld) [Volume fraction] 44.9 % 39.6 - 48.8 % [facility] Hemoglobin (Bld) [Mass/Vol] 14.4 g/dL 13.4 - 16.8 g/dL [facility] Immature granulocytes (Bld) [#/Vol] K/uL NINF - 0.07 K/uL [facility] Immature granulocytes/100 WBC (Bld) 0.3 % [facility] Interpretation and review of laboratory results Abnormal [facility] Lymphocytes (Bld) [#/Vol] 0.88 10*3/uL 0.83 - 3.57 K/uL [facility] Lymphocytes/100 WBC (Bld) 9.4 % [facility] MCH (RBC) [Entitic mass] 29.7 pg 26.1 - 33.3 pg [facility] MCHC (RBC) [Mass/Vol] 32.1 g/dL 31.9 - 36.5 g/dL [facility] MCV (RBC) [Entitic vol] 92.6 fL 79.0 - 94.5 fL [facility] Monocytes (Bld) [#/Vol] 1.08 10*3/uL High 0.24 - 0.93 K/uL [facility] Monocytes/100 WBC (Bld) 11.5 % [facility] Neutrophils (Bld) [#/Vol] 7.35 10*3/uL High 1.57 - 6.19 K/uL [facility] Nucleated RBC/100 WBC (Bld) [Ratio] 0.0 % [facility] Platelet mean volume (Bld) [Entitic vol] 8.8 fL 8.7 - 12.3 fL [facility] Platelets (Bld) [#/Vol] 206 10*3/uL 146 - 337 K /uL [facility] RBC (Bld) [#/Vol] 4.85 10*6/uL [facility] Segmented neutrophils/100 WBC (Bld) 78.2 % [facility] WBC (Bld) [#/Vol] 9.40 10*3/uL 3.73 - 10. 10 K/uL [facility] CHEM 6 (LYTES, BUN CREA)on 1 12-10-2022 Anion gap [Moles/Vol] 11 mmol/L 7 - 17 mmol/L [facility] Chloride [Moles/Vol] 104 mmol/L 98 - 10 8 mmol/L [facility] CO2 [Moles/Vol] 26 mmol/L 21 - 31 mmol/L [facility] Creatinine [Mass/Vol] 0.97 mg/dL 0.70 - 1.30 mg/dL [facility] eGFR, CKD-EPI, Male 77 - PINF [facility] Comment on above: Reported eGFR is bas ed on the CKD-EPI 2020 equation using creatinine, age, and sex. Potassium [Moles/Vol] 4.0 mmol/L 3.5 - 5.0 mmol/L [facility] Sodium [Moles/Vol] 137 mmol/L 135 - 145 mmol/L [facility] Urea nitrogen [Mass/Vol] 23 mg/dL 7 - 25 mg/dL [facility] Urea nitrogen/Creatinine [Mass ratio] 24 mg/mg [facility] GLUCOSEon 10-09-2023 Glucose [Mass/Vol] 123 mg/dL High 70 - 99 mg/dL [facility] HEPATIC FUNCTION PANELon Albumin [Mass/Vol] 4.4 g/dL 3.5 - 5.0 g/dL OS [facility] ALP [Catalytic activity/Vol] 57 U/L 32 - 126 U/L [facility] ALT [Catalytic activity/Vol] 8 U/L Low 10 - 52 U/L [facility] AST [Catalytic activity/Vol] 15 U/L 10 - 39 U/L [facility] Bilirubin [Mass/Vol] 0.7 mg/dL [facility]/dL [facility] Bilirubin.direct [Mass/Vol] 0.2 mg/dL NINF - 0.3 mg/dL [facility] Protein [Mass/Vol] 7.3 g/dL 6.4 - 8.3 g/dL [facility] LIPASEon 10-09-2023 Interpretation and review of laboratory results Normal [facility] Lipase [Catalytic activity/Vol] 12 U/L 11 - 82 U/L [facility] No Panel Informationon 10-09 Interpretation and review of laboratory results Abnormal [facility] Echocardiogramon 06-25-[address], [address] [place] [address] TRANSTHORACIC ECHOCARDIOGRAM REPORT Patient Name: KENNEDY KONG Reading Physician: [id number] Hannah Abraham MD Study Date: 06/25/2023 Referring ADRIEL MORGAN Physician: MRN/PID: [id number] PCP: Nestor Estrella Accession/Order#: [id number] [facility] Location: Date of : 1935 Fellow: Gender: M Nurse: Admit Date: Turbinated Bone Grinder: Flores Love RDCS, RVT Height: 177.80 cm CC Report to: Weight: 83.92 kg Study Type: Echocardiogram BSA: 2.02 m2 Blood Pressure: 110 /64 mmHg Diagnosis/ICD: 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; I51.9-Heart disease, unspecified; 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) Indication: Hyperlipidemia, W[place] and PTCA-04/22/2023 Procedure/CPT: Echo Complete w Full Doppler-59916 Study Detail: The following Echo studies were [...] mmHg PIEDV: 1.64 m/s PADP: 13.8 mmHg [id number] Hannah Abraham MD Electronically signed on 06/25/2023 at 2:13:32 PM Final Normal [facility] UroVysion Fish and Urine Cyt o ([facility])on 05-17-2023 UVFISH & UC Diagnosis Info Invalid Interpretation Code [facility] Comment on above: Result Comment: A:Ur [...] correlated with cytology and cystoscopy results.* CPT 06390, 13303. Microscopic Notes - Microscopic Notes - Abnormal cells 9p21 deletions: 34 Abnormal cells aneploid events: 86 Total cells analyzed: 100 Hematuria: Gross Description Site ID:A color Yellow fixative Alcohol Received 70 mls of clearish yellow fluid with the patient's name and, Urine on the vial. Electronically signed by : on: 05/17/2023 11:19:51 Performed By: #### 1 [id number] ####[facility] [address] [place] [address] Consent for Procedure/Surger yon 05-16-2023 Consent for Procedure/Surgery [id number] #1.00CD:127 [facility] Formson 05-16-2023 Forms [id number] #1.00CD:127 [facility] Consent for Procedure/Surger yon 05-14-2023 Consent for Procedure/Surgery [id number] #1.00CD:127 [facility] Consent for Treatmenton 04-21 Consent for Treatment [id number] #1.00CD:127 [facility] IntraOperative Documentson 0 05-14-2023 IntraOperative Documents [id number] #1.00CD:127 [facility] Main OR Intraoperative Recor don 05-14-2023 Main OR Intraoperative Record IntraOp Document Type FTURO Summary Primary Physician: Kylie DIETRICH MD Finalized Date/Time: 05/14/23 14:52:05 Pt. Name: KENNEDY KONG Jeremi Mata/Sex: 1935 Male Med Rec #: [id number] Physician: Kylie DIETRICH MD Financial #: [id number] Pt. Type: O Room/Bed: / Admit/Disch: 05/14/23 13:13:51 - Institution: Case Times FTURO Entry 1 Patient Times In Room 05/14/23 14:27:00 Out Room 05/14/23 14:48:00 Procedure Times Start 05/14/23 14:32:00 Stop 05/14/23 14:47:00 Anesthesia Times Last Modified By: Emilee ANDERSON, Lyric FRANCIS 05/14/23 14:51:42 Case Attendance FTURO Entry 1 Entry 2 Entry 3 Case Attendee KARLO CHOI, Kylie Hebert RN, KANNANOR, Tammy POLK, Chrystal Gunter Role Performed Surgeon - Primary Boiler Repair Supervisor - Primary Scrub - Primary Time In 05/14/23 14:27:00 05/14/23 14:27:00 05/14/23 14:27:00 Time Out 05/14/23 14:48:00 05/14/23 14:48:00 05/14/23 14:48:00 Procedure CYSTOSCOPY LOCAL(.) CYSTOSCOPY LOCAL(.) CYSTOSCOPY LOCAL(.) Comments Last Modified By: Emilee ANDERSON, CNOR, Emilee ANDERSNO, KANNANOR, Emilee ANDERSON, KANNANOR, Lyric 05/14/23 Lyric 05/14/23 Lyric 05/14/23 14:51:43 14:51:43 14:51:43 Surgical Procedures FTURO Entry 1 Procedure Description Procedure CYSTOSCOPY LOCAL Modifiers . Surgeon Description cysto Primary Procedure Yes Primary Surgeon Kylie DIETRICH MD Start 05/14/23 14:32:00 Stop 05/14/23 14:47:00 Anesthesia Type Local Surgical Service Urology Wound Class 2 - Clean-Contaminated Last Modified By: Emilee ANDERSON, KANNANORLyric 05/14/23 14:51:45 General Case Data FTURO Pre-Care [...] PENNY Hebert RN, Ruthann 05/14/23 14:52 Normal [facility] Main OR Preoperative Recordo n 05-14-2023 Main OR Preoperative Record Holding Area Document Type FTURO Summary Primary Physician: Kylie DIETRICH MD Finalized Date/Time: 05/14/23 14:28:27 Pt. Name: LUANNKENNEDY/Sex: 1935 Male Med Rec #: [id number] Physician: Kylie DIETRICH MD Financial #: [id number] Pt. Type: O Room/Bed: / Admit/Disch: 05/14/23 13:13:51 - Institution: Case Times Holding FTURO Pre-Care Text: Verifies consent for planned procedure, identifies individual values and wishes concerning care, includes family members in perioperative teaching Secures patient's records' belongings, and valuables, maintains patient's dignity and privacy, and maintains patient confidentiality Entry 1 In Holding 05/14/23 13:56:00 Outcomes Met? Yes Last Modified By: Marilee Vaguhn LPN 05/14/23 13:56:03 Post-Care Text: The patient [...] Complaints of Pain: No Skin Integrity Intact, [place], Warm, & Dry Vitals - EU Blood Pressure 128/60 Pulse 73 bpm Respirations 20 br/min SPO2 96 % RN Reviewed Yes Last Modified By: PENNY Hebert RN, Ruthann 05/14/23 14:28:24 General Comments: Temp 98.1 Finalized By: PENNY Hebert RN, Ruthann Document Signatures Signed By: Marilee Vaughn LPN 05/14/23 14:03 PENNY Hebert RN, Ruthann 05/14/23 14:28 Normal [facility] Operative Reporton 3 Operative Report Patient: KENNEDY KONG Age: 87 [...] resection of bladder tumors under general.. Normal [facility] Comment on above: Result Comment: Elec tronically Signed By: KARLO CHOI, Kylie Restrepo\.br\Date and Time Signed: 05/14/23 14:43 EDT Outpatient Surgery Discharge Instructionon 05-14-2023 Outpatient Surgery Discharge Instruction [id number] #1.00CD:127 Normal [facility] Progress Note-Physicianon Progress Note-Physician Patient: KENNEDY [...] obstruction/lower urinary tract symptoms / SNOMED CT 6609522863 / Confirmed History of ulcerative colitis / SNOMED CT 063076654 / Confirmed Trigeminal neuralgia of right side of face / SNOMED CT 09246213 / Confirmed Hyperlipidemia / SNOMED CT 16768827 / Confirmed Chronic venous insufficiency / SNOMED CT 62908649 / Confirmed Lumbar spondylosis / SNOMED CT 988269015 / Confirmed Right hip pain / SNOMED CT 96277665 / Confirmed Chronic kidney disease / SNOMED CT 2870229765 / Confirmed Gross hematuria / SNOMED CT 533022016 / Confirmed Osteoarthritis of right hip / SNOMED CT 0790322032 / Confirmed Urinary incontinence / SNOMED CT 1120887243 / Confirmed Renal cyst / SNOMED CT 6344289908 / Confirmed Hydrocele / SNOMED CT 8745712959 / Confirmed BMI 24.0-24.9, adult / SNOMED CT 7372518373 / Confirmed Bladder tumor / SNOMED CT 861446 / Confirmed Bladder cancer / SNOMED CT 2306357414 / Confirmed Asymptomatic microscopic hematuria / SNOMED CT 5609028315 / Confirmed UTI (urinary tract infection) / SNOMED CT 394559243 / Confirmed 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 hydrocele: Resolved. Family History: Colon cancer Father () Procedure history: Endoscopic destruction of bladder tumor by laser EVOLVE ([id number]) on 12/13/2020 at 85 Years. TURBT - with left ureteroscopy and left stent placement ([id number]) on 05/26/2020 at 84 Years. Hydrocelectomy ([id number]) in 2001 at 67 Years. colon resection. colonoscopy. Cataract ([id number]). Comments: 10/17/2010 12:31 Martha Colindres left Social History Social & Psychosocial Habits [...] he then will require more BCG. Normal [facility] Comment on above: Result Comment: [...] receiving treatment for. colon ca resection hydrocele [facility] UroVysion Fish and Urine Cyt o ([facility])on 05-10-2023 [facility] Method of Extraction Voided [facility] Comment on above: Performed By: #### 1 [id number] ####[facility] [address] [place] [address] [facility] Number of Jars 1 Invalid Interpretation Code [facility] Comment on above: Performed By: #### 1 [id number] ####[facility] [address] [place] [address] [facility] Specimen Urine Normal [facility] Comment on above: Performed By: #### 1 [id number] ####[facility] [address] [place] [address] [facility] Type of Service Technical Only Normal [facility] Comment on above: Performed By: #### 1 [id number] ####[facility] [address] [facility] [place] [address] Office Visit (Cardiology)on 05-02-2023 Follow-up visit Diagnoses/Problems [...] Aminotransferase, Serum; Status:Active - Retrospective Authorization; Requested for:[id number]; AST; Status:Active - Retrospective Authorization; Requested for:77Sfg2042; Complete Blood Count; Status:Active - Retrospective Authorization; Requested for:25Bcy3121; Echocardiogram; Status:Hold For - Scheduling,Retrospec tive Authorization; Requested for:97Wea7497; Lipid Panel; Status:Active - Retrospective Authorization; Requested for:94Wvb5423; SocHx: Never a smoker Tobacco Use Screening; Status:Complete; Done: 03Wfs2731 Patient Instructions Please bring all medicines, vitamins, [...] gentleman who returns following recent non-ST elevation W[place] due to occluded obtuse marginal branch with primary revascularization with drug-eluting stent and is doing well. He has mild LV dysfunction, No significant coronary disease, ejection fraction of 45%. 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 Vitals Vital Signs Recorded: [id number] 11:57AM Heart Rate60, L Radial Tcwcvlle968, LUE, Sitting Jvyoegimq08, LUE, Sitting Height5 ft 10 in Yddexz513 lb BMI Aohyocgojy57.54 kg/m2 BSA Calculated2.02 Tobacco Useb) No PHQ-2 [...] May 02 2023 12:49PM EST (Author) Normal [facility] Tobacco Screening.on 023 Adult depression screening assessment No [facility] Heart-Sandusk y 250 DO Work Phone: Fall risk assessment a) No falls within the last year [facility] Heart-WiziShopusk y 250 DO Work Phone: Tobacco use status [facility] b) No M [facility] HeartgoOutMapusk y 250 DO Work Phone: Basic Metabolic Panelon 07- Anion gap [Moles/Vol] 10.5 mmol/L Normal 6.0-15.0 [facility] Comment on above: Performed By: #### H S TROP, LIPID, CBC, BMP #### [facility] [address] [place] [address] [facility] Calcium [Mass/Vol] 8.7 mg/dL Normal 8.6-10.3 [facility] Comment on above: Performed By: #### H S TROP, LIPID, CBC, BMP #### [facility] [address] [place] [address] [place] Chloride [Moles/Vol] 106 mmol/L Normal 98-107 [facility] Comment on above: Performed By: #### H S TROP, LIPID, CBC, BMP #### [facility] [address] CO2 [Moles/Vol] 25.0 mmol/L Normal 21.0-31.0 [facility] Comment on above: Performed By: #### H S TROP, LIPID, CBC, BMP #### [facility] [address] [place] [address] [place] Creatinine [Mass/Vol] 0.99 mg/dL Normal 0.70-1.30 [facility] Comment on above: Performed By: #### H S TROP, LIPID, CBC, BMP #### [place] [address] [place] Creatinine Clr Calc Pharmacy 55.30 [facility] Comment on above: Performed By: #### H S TROP, LIPID, CBC, BMP #### [place] [address] [place] GFR/1.73 sq M.predicted MDRD (S/P/Bld) [Vol rate/Area] mL/min/{1.73_m2} [facility] Comment on above: Performed By: #### H S TROP, LIPID, CBC, BMP #### [place] [address] [place] Glucose [Mass/Vol] 110 mg/dL High 70-100 [facility] Comment on above: Result Comment: [facility] Glucose Reference Range is dependent on time and content of last meal. Glucose of more than 200 mg/dL in a nonstressed, ambulatory subject supports the diagnosis of Diabetes Mellitus. ADA recommended reference range Performed By: #### H S TROP, LIPID, CBC, BMP #### [facility] [address] [place] [address] [place] Potassium [Moles/Vol] 4.5 mmol/L Normal 3.5-5.1 [facility] Comment on above: Performed By: #### H S TROP, LIPID, CBC, BMP #### [facility] [address] [place] [address] [place] Sodium [Moles/Vol] 137 mmol/L Normal 136-145 [facility] Comment on above: Performed By: #### H S TROP, LIPID, CBC, BMP #### [facility] [address] [place] [address] [place] Urea nitrogen [Mass/Vol] 24 mg/dL Normal 7-25 [facility] Comment on above: Performed By: #### H S TROP, LIPID, CBC, BMP #### [facility] [address] Basophils Auto (Bld) [#/Vol] Ordered By: Ko Morgan on 04-23-2023 Basophils (Bld) [#/Vol] 0.1 10*3/uL 0.0-0.2 [facility] Basophils/100 WBC Auto (Bld) Ordered By: Ko Morgan on 04-23-2023 Basophils/100 WBC (Bld) 0.7 % . [facility] Calcium [Mass/volume] in Ser um or PlasmaOrdered By: Ko Morgan on 04-23-2023 Calcium [Mass/Vol] 8.7 mg/dL 8.6-10.3 [facility] Carbon dioxide, total [Moles /volume] in Serum or PlasmaOrdered By: Ko Morgan on 04-23-2023 CO2 [Moles/Vol] 25.0 mmol/L 21.0-31.0 [facility] Chloride [Moles/volume] in S aimee or PlasmaOrdered By: Ko Morgan on 04-23-2023 Chloride [Moles/Vol] 106 mmol/L 98-107 [facility] Cholesterol [Mass/volume] in Serum or PlasmaOrdered By: Ko Morgan on 04-23-2023 Cholesterol [Mass/Vol] 148 mg/dL 140-200 [facility] Comment on above: Chol less than 200 m g/dl low riskChol 201-239 mg/dl borderline riskChol 240 mg/dl and greater high risk Cholesterol in LDL Calc [Mas s/Vol]Ordered By: Ko Morgan on 04-23-2023 Cholesterol in LDL [Mass/Vol] 73 mg/dL 0-100 [facility] Comment on above: LDL ATP III CLASSIFI CATIONLDL less than 100 mg/dL OptimalLDL 100-129 mg/dL Near or above optimalLDL 130-159 mg/dL Borderline highLDL 160-189 mg/dL HighLDL greater than 189 mg/dL Very high Cholesterol in VLDL Calc [Ma ss/Vol]Ordered By: Ko Morgan on 04-23-2023 Cholesterol in VLDL [Mass/Vol] 19 mg/dL [facility] Complete Blood Count Auto Di ffon 04-23-2023 Basophils (Bld) [#/Vol] 0.1 10*3/uL Normal 0.0-0.2 [facility] Comment on above: Result Comment: PERF ORMED BY: [place] [address] PATHOLOGIST HEM INSPECTOR JAMIE MADISON M.D. Performed By: #### H S TROP, LIPID, CBC, BMP #### [facility] [address] [place] [address] Basophils/100 WBC (Bld) 0.7 % Normal . [facility] [place] Comment on above: Performed By: #### H S TROP, LIPID, CBC, BMP #### [facility] [address] [place] [address] [place] Eosinophils (Bld) [#/Vol] 0.1 10*3/uL Normal 0.0-0.45 [facility] Comment on above: Performed By: #### H S TROP, LIPID, CBC, BMP #### [facility] [address] [place] [address] [place] Eosinophils/100 WBC (Bld) 1.5 % Normal . [facility] Comment on above: Performed By: #### H S TROP, LIPID, CBC, BMP #### [facility] [address] [place] [address] [place] Erythrocyte distribution width (RBC) [Ratio] 13.6 % Normal 12.0-14.8 [facility] Comment on above: Performed By: #### H S TROP, LIPID, CBC, BMP #### [facility] [address] [place] [address] [place] Hematocrit (Bld) [Volume fraction] 40.6 % Normal 38.8-50.0 [facility] Comment on above: Performed By: #### H S TROP, LIPID, CBC, BMP #### [address] Hemoglobin (Bld) [Mass/Vol] 13.4 g/dL Normal 13.0-17.0 [facility] Comment on above: Performed By: #### H S TROP, LIPID, CBC, BMP #### [address] Lymphocytes (Bld) [#/Vol] 0.9 10*3/uL Low 1.00-4.8 [facility] Comment on above: Performed By: #### H S TROP, LIPID, CBC, BMP #### [address] Lymphocytes/100 WBC (Bld) 10.5 % Normal . [facility] Comment on above: Performed By: #### H S TROP, LIPID, CBC, BMP #### [address] MCH (RBC) [Entitic mass] 29.7 pg Normal 27.5-35.2 [facility] Comment on above: Performed By: #### H S TROP, LIPID, CBC, BMP #### [address] MCV (RBC) [Entitic vol] 89.8 fL Normal 83.5-101 [facility] [place] Comment on above: Performed By: #### H S TROP, LIPID, CBC, BMP #### [address] Mean Corpuscular HGB Conc 33.1 g/dL Normal 32.5-35.6 [facility] Comment on above: Performed By: #### H S TROP, LIPID, CBC, BMP #### [address] Monocytes (Bld) [#/Vol] 1.1 10*3/uL High 0.0-0.8 [facility] Comment on above: Performed By: #### H S TROP, LIPID, CBC, BMP #### [facility] [address] [place] [address] [place] Monocytes/100 WBC (Bld) 14.1 % Normal . [facility] [place] Comment on above: Performed By: #### H S TROP, LIPID, CBC, BMP #### [address] Neutrophils (Bld) [#/Vol] 5.9 10*3/uL Normal 1.8-7.7 [facility] Comment on above: Performed By: #### H S TROP, LIPID, CBC, BMP #### [address] Neutrophils/100 WBC (Bld) 73.2 % Normal . [facility] Comment on above: Performed By: #### H S TROP, LIPID, CBC, BMP #### [address] NRBC% 0.1 /100{WBC} Normal 0-0.5 [facility] Comment on above: Performed By: #### H S TROP, LIPID, CBC, BMP #### [address] Platelet mean volume (Bld) [Entitic vol] 6.8 fL Normal 6.6-10.1 [facility] Comment on above: Performed By: #### H S TROP, LIPID, CBC, BMP #### [place] [address] [place] Platelets (Bld) [#/Vol] 215 10*3/uL Normal 150-450 [facility] Comment on above: Performed By: #### H S TROP, LIPID, CBC, BMP #### [place] [address] [place] RBC (Bld) [#/Vol] 4.52 10*6/uL Normal 3.90-5.60 [facility] Comment on above: Performed By: #### H S TROP, LIPID, CBC, BMP #### [place] [address] [place] WBC (Bld) [#/Vol] 8.1 10*3/uL Normal 4.1-10.5 [facility] Comment on above: Performed By: #### H S TROP, LIPID, CBC, BMP #### [facility] [address] [place] [address] Creatinine [Mass/volume] in Serum or PlasmaOrdered By: Ko Morgan on 04-23-2023 Creatinine [Mass/Vol] 0.99 mg/dL 0.70-1.30 [facility] ECG 12 lead ECGon 04-23-2023 ECG 12 lead ECG [facility] Main [place] [address] [place] [address] Electrocardiograph Report Signed Patient: Kennedy Kong MR#: [id number] 1435 : 1935 Acct:[id number] Age/Sex: 87 / M ADM Date: 04/22/23 Loc: Room: [address] [place] [address] Type: ADM IN Attending Dr: Kiki Motta [...] consider inferior injury or acute infarct ACUTE [place] / STEMI Abnormal ECG No previous ECGs available Confirmed by RANDAL SRIVASTAVA DO ([id number]) on 04/23/2023 9:23:52 AM Referred By: Electronically Signed By:RANDAL SRIVASTAVA DO Transcribed By: MUS Signed By Randal Srivastava DO 04/23 Normal [facility] Eosinophils Auto (Bld) [#/Vo l]Ordered By: Ko Morgan on 04-23-2023 Eosinophils (Bld) [#/Vol] 0.1 10*3/uL 0.0-0.45 [facility] Eosinophils/100 WBC Auto (Bl d)Ordered By: Ko Morgan on 04-23-2023 Eosinophils/100 WBC (Bld) 1.5 % . [facility] Erythrocyte distribution wid th Auto (RBC) [Ratio]Ordered By: Ko Morgan on 04-23-2023 Erythrocyte distribution width (RBC) [Ratio] 13.6 % 12.0-14.8 [facility] Glucose [Mass/volume] in Ser um or PlasmaOrdered By: Ko Morgan on 04-23-2023 Glucose [Mass/Vol] 110 mg/dL 70-100 [facility] Comment on above: ADA recommended refe rence rangeRandom Glucose Reference Range is dependent on time and content of last meal. Glucose of more than 200 mg/dL in a nonstressed, ambulatory subject supports the diagnosis of Diabetes Mellitus. Hematocrit Auto (Bld) [Volum e fraction]Ordered By: Ko Morgan on 04-23-2023 Hematocrit (Bld) [Volume fraction] 40.6 % 38.8-50.0 [facility] Hemoglobin [Mass/volume] in BloodOrdered By: Ko Morgan on 04-23-2023 Hemoglobin (Bld) [Mass/Vol] 13.4 g/dL 13.0-17.0 [facility] Leukocytes [#/volume] correc ramona for nucleated erythrocytes in Blood by Automated counOrdered By: Ko Morgan on 04-23-2023 WBC corrected for nucl RBC Auto (Bld) [#/Vol] 8.1 10*3/uL 4.1-10.5 [facility] Lipid Panelon 04-23-2023 Cholesterol [Mass/Vol] 148 mg/dL Normal 140-200 [facility] Comment on above: Result Comment: Chol less than 200 mg/dl low risk Chol 201-239 mg/dl borderline risk Chol 240 mg/dl and greater high risk Performed By: #### H S TROP, LIPID, CBC, BMP #### [address] Cholesterol in HDL [Mass/Vol] 56 mg/dL Normal 23-92 [facility] Comment on above: Result Comment: HDL CHOL ATP-III CLASSIFICATION Cardiovascular Risk HDL > or equal to 60 mg/dL LOW HDL < 40 mg/dL HIGH Performed By: #### H S TROP, LIPID, CBC, BMP #### [facility] [address] Cholesterol.total/Drea sterol in HDL [Mass ratio] 2.6 {ratio} Normal <5.0 [facility] Comment on above: Result Comment: PERF ORMED BY: [place] [address] PATHOLOGIST HEM INSPECTOR JAMIE MADISON M.D. Performed By: #### H S TROP, LIPID, CBC, BMP #### [facility] [address] LDL Cholesterol,Calculated 73 mg/dL Normal 0-100 [facility] Comment on above: Result Comment: LDL ATP III CLASSIFICATION LDL less than 100 mg/dL Optimal LDL 100-129 mg/dL Near or above optimal LDL 130-159 mg/dL Borderline high LDL 160-189 mg/dL High LDL greater than 189 mg/dL Very high Performed By: #### H S TROP, LIPID, CBC, BMP #### [facility] [address] Triglyceride w/Reflex 97 mg/dL Normal 0-149 [...] S TROP, LIPID, CBC, BMP #### [facility] Ctr [address] [place] [address] VLDL CHOLESTEROL 19 mg/dL Normal [facility] Comment on above: Performed By: #### H S TROP, LIPID, CBC, BMP #### [facility] [address] [place] [address] Lymphocytes Auto (Bld) [#/Vo l]Ordered By: Ko Morgan on 04-23-2023 Lymphocytes (Bld) [#/Vol] 0.9 10*3/uL 1.00-4.8 [facility] Lymphocytes/100 WBC Auto (Bl d)Ordered By: Ko Morgan on 04-23-2023 Lymphocytes/100 WBC (Bld) 10.5 % . [facility] MCH Auto (RBC) [Entitic mass ]Ordered By: Ko Morgan on 04-23-2023 MCH (RBC) [Entitic mass] 29.7 pg 27.5-35.2 [facility] MCHC Auto (RBC) [Mass/Vol]Or dered By: Ko Morgan on 04-23-2023 MCHC (RBC) [Mass/Vol] 33.1 g/dL 32.5-35.6 [facility] MCV Auto (RBC) [Entitic vol] Ordered By: Ko Morgan on 04-23-2023 MCV (RBC) [Entitic vol] 89.8 fL 83.5-101 [facility] [place] Monocytes Auto (Bld) [#/Vol] Ordered By: Ko Morgan on 04-23-2023 Monocytes (Bld) [#/Vol] 1.1 10*3/uL 0.0-0.8 [facility] Monocytes/100 WBC Auto (Bld) Ordered By: Ko Morgan on 04-23-2023 Monocytes/100 WBC (Bld) 14.1 % . [facility] [place] Neutrophils Auto (Bld) [#/Vo l]Ordered By: Ko Morgan on 04-23-2023 Neutrophils (Bld) [#/Vol] 5.9 10*3/uL 1.8-7.7 [facility] Neutrophils/100 WBC Auto (Bl d)Ordered By: Ko Morgan on 04-23-2023 Neutrophils/100 WBC (Bld) 73.2 % . [facility] No Panel InformationOrdered By: Ko Morgan on 04-23-2023 Estimated GFR (CKD-EPI) > 60.0 mL/Min [facility] Creatinine Clearance (Chem 55.30 [facility] Nucleated erythrocytes [Pres ence] in Blood by Automated countOrdered By: Ko Morgan on 04-23-2023 Nucleated RBC Auto Ql (Bld) 0.1 /100{WBC} 0-0.5 [facility] Platelet mean volume Auto (B ld) [Entitic vol]Ordered By: Ko Morgan on 04-23-2023 Platelet mean volume (Bld) [Entitic vol] 6.8 fL 6.6-10.1 [facility] Platelets Auto (Bld) [#/Vol] Ordered By: Ko Morgan on 04-23-2023 Platelets (Bld) [#/Vol] 215 10*3/uL 150-450 [facility] Potassium [Moles/volume] in Serum or PlasmaOrdered By: Ko Morgan on 04-23-2023 Potassium [Moles/Vol] 4.5 mmol/L 3.5-5.1 [facility] RBC Auto (Bld) [#/Vol]Ordere d By: Ko Morgan on 04-23-2023 RBC (Bld) [#/Vol] 4.52 10*6/uL 3.90-5.60 [facility] Serum or plasma anion gap de terminationOrdered By: Ko Morgan on 04-23-2023 Anion gap [Moles/Vol] 10.5 mmol/L 6.0-15.0 [facility] Serum or plasma high density lipoprotein (HDL) cholesterol measurementOrdered By: Ko Morgan on 04-23-2023 Cholesterol in HDL [Mass/Vol] 56 mg/dL 23-92 [facility] Comment on above: HDL CHOL ATP-III CLA SSIFICATION Cardiovascular RiskHDL > or equal to 60 mg/dL LOWHDL < 40 mg/dL HIGH Serum or plasma total choles terol/high density lipoprotein (HDL) cholesterol mass ratOrdered By: Ko Morgan on 04-23-2023 Cholesterol.total/Drea sterol in HDL [Mass ratio] 2.6 {ratio} <5.0 [facility] Sodium [Moles/volume] in Ser um or PlasmaOrdered By: Ko Morgan on 04-23-2023 Sodium [Moles/Vol] 137 mmol/L 136-145 [facility] Triglyceride [Mass/volume] i n Serum or PlasmaOrdered By: Ko Morgan on 04-23-2023 Triglyceride [Mass/Vol] 97 mg/dL 0-149 [facility] [place] Comment on above: TRIG ATP III CLASSIF ICATIONTRIG less than 150 mg/dL NormalTRIG 150-199 mg/dL Borderline highTRIG 200-500 mg/dL High TRIG greater than 500 mg/dL Very highStandard traceable to the Center for Disease Conrtrol and Prevention (CDC) test method. Troponin I High Sensitivityo n 04-23-2023 Troponin I High Sensitivity 65592.2 pg/mL Off scale high 0.0-20.0 [facility] Comment on above: Result Comment: Crit ical Result : Called to and read back by: STACY JACKSON at: 04/23/2023 04:24:25 by:[id number] PERFORMED BY: [place] [id number] PATHOLOGIST HEM INSPECTOR JAMIE MADISON M.D. Performed By: #### H S TROP, LIPID, CBC, BMP #### [facility] [address] [place] [address] Troponin I High Sensitivity 94277.0 pg/mL Off scale high 0.0-20.0 [facility] Comment on above: Result Comment: Crit ical Result I_TnIHS_d:21220.0 Called to and read back by: STACY JACKSON at: 04/23/2023 00:43:35 by:[id number] PERFORMED BY: [place] [id number] PATHOLOGIST HEM INSPECTOR JAMIE MADISON M.D. Performed By: #### H S TROP #### [facility] [address] [place] [address] Troponin I.cardiac [Mass/vol ume] in Serum or Plasma by Detection limit <= 0.01 ng/Ordered By: Ko Morgan on 04-23-2023 Troponin I.cardiac DL <= 0.01 ng/mL [Mass/Vol] 40968.2 pg/mL 0.0-20.0 [facility] Comment on above: Critical Result : Ca lled to and read back by: STACY JACKSON at: 04/23/2023 04:24:25 by:[id number] Urea nitrogen [Mass/volume] in Serum or PlasmaOrdered By: Ko Morgan on 04-23-2023 Urea nitrogen [Mass/Vol] 24 mg/dL 7- [facility] WBC Auto (Bld) [#/Vol]Ordere d By: Ko Morgan on 04-23-2023 WBC (Bld) [#/Vol] 8.1 10*3/uL 4.1-10.5 [facility] ECG 12 lead ECGon 04-22-2023 ECG 12 lead ECG [facility] [place] [address] [place] [address] Electrocardiograph Report Signed Patient: Kennedy Kong MR#: [id number] : 1935 Acct:[id number] Age/Sex: 87 / M ADM Date: 04/22/23 Loc: Room: [address] [place] [address] Type: ADM IN Attending Dr: Kiki Motta [...] By Randal Srivastava DO 04/23 0923 Normal [facility] Troponin I High Sensitivityo n 04-22-2023 Troponin I High Sensitivity 97784.2 pg/mL Off scale high 0.0-20.0 [facility] Comment on above: Result Comment: Crit ical Result I_TnIHS_d:68371.2 Called to and read back by: STACY JACKSON at: 04/22/2023 20:59:13 by:[id number] PERFORMED BY: [place] [address] PATHOLOGIST HEM INSPECTOR JAMIE MADISON M.D. Performed By: #### H S TROP #### [address] Troponin I High Sensitivity 51571.7 pg/mL Off scale high 0.0-20.0 [facility] Comment on above: Result Comment: Crit ical Result I_TnIHS_d:49639.7 Called to and read back by: IRIS MARQUES at: 04/22/2023 18:09:03 by:[id number] PERFORMED BY: [place] [address] PATHOLOGIST HEM INSPECTOR JAMIE MADISON M.D. Performed By: #### H S TROP, LIPID, CBC, BMP #### [address] Troponin I High Sensitivity 56633.8 pg/mL Off scale high 0.0-20.0 [facility] Comment on above: Result Comment: Crit ical Result : Called to and read back by: IRIS MARQUES at: 04/22/2023 16:04 by:[id number] PERFORMED BY: [place] [id number] PATHOLOGIST HEM INSPECTOR JAMIE MADISON M.D. Performed By: #### H S TROP, LIPID, CBC, BMP #### [facility] [address] [place] [address] CBC AUTO DIFFon 12-27-2022 BASO # 0.0 103/ul Normal 0.0-0.1 [facility] Comment on above: Performed By: #### C BC ####[facility] [address] [place], [place] [address]Dr. Cipriano Patton Basophils/100 WBC (Bld) 0.6 % Normal 0.2-2.0 [facility] Comment on above: Performed By: #### C BC ####[facility] [address] [place], [place] [address]Dr. Cipriano Patton EO # 0.5 103/ul Normal 0.0-0.7 [facility] Comment on above: Performed By: #### C BC ####[facility] [address] [place], [place] [address]Dr. Cipriano Patton Eosinophils/100 WBC (Bld) 7.0 % Normal 0.9-7.0 [facility] Comment on above: Performed By: #### C BC ####[facility] [address] [place], [place] [address]Dr. Cipriano Patton Erythrocyte distribution width (RBC) [Ratio] 13.6 % Normal 11.0-15.0 [facility] Comment on above: Performed By: #### C BC ####[facility] [address] [place], [place] [address]Dr. Cipriano Patton Hematocrit (Bld) [Volume fraction] 41.9 % Critically low 42.0-54.0 [facility] Comment on above: Performed By: #### C BC ####[facility] [address] [place], [place] [address]Dr. Cipriano Patton Hemoglobin (Bld) [Mass/Vol] 13.7 g/dL Critically low 14.0-18.0 [facility] Comment on above: Performed By: #### C BC ####[facility] [address] [place], [place] [address]Dr. Cipriano Patton IG # 0.01 10e3/ul Normal 0.00-0.03 [facility] Comment on above: Performed By: #### C BC ####[facility] [address] [place], [place] [address]Dr. Cipriano Patton IG % 0.2 % Normal 0.0-0.5 [facility] Comment on above: Performed By: #### C BC ####[facility] [address] [place], [place] [address]Dr. Cipriano Patton LYMPH # 1.3 103/ul Normal 1.2-3.8 [facility] Comment on above: Performed By: #### C BC ####[facility] [address] [place], [place] [address]Dr. Cipriano Patton Lymphocytes/100 WBC (Bld) 19.5 % Critically low 20.5-60.0 [facility] Comment on above: Performed By: #### C BC ####[facility] [address] [place], [place] [address]Dr. Cipriano Patton MANUAL DIFF REQ NO Normal [facility] Comment on above: Performed By: #### C BC ####[facility] [address] [place] [address]Dr. Cipriano Abdi MCH (RBC) [Entitic mass] 29.4 pg Normal 25.9-34.0 [facility] Comment on above: Performed By: #### C BC ####[facility] [address] [place], [place] [address]Dr. Cipriano Abdi MCHC (RBC) [Mass/Vol] 32.7 g/dL Normal 29.9-35.2 [facility] Comment on above: Performed By: #### C BC ####[facility] [address] [place], [place] [address]DrWesley Carolejennifer Patton MCV (RBC) [Entitic vol] 89.9 fL Normal 80.0-94.0 [facility] Comment on above: Performed By: #### C BC ####[facility] [address] [place], [place] [address]DrWesley Patton MONO # 0.9 103/ul Critically high 0.3-0.8 [facility] Comment on above: Performed By: #### C BC ####[facility] [address] [place], [place] [address]Dr. Cipriano Patton Monocytes/100 WBC (Bld) 14.7 % Critically high 1.7-12. 0 [facility] Comment on above: Performed By: #### C BC ####[facility] [address] [place], [place] [address]DrWesley Patton NEUT # 3.7 103/ul Normal 1.4-6.5 [facility] Comment on above: Performed By: #### C BC ####[facility] [address] [place], [place] [address]DrWesley Patton Neutrophils/100 WBC (Bld) 58.0 % Normal 43.0-75.0 [facility] Comment on above: Performed By: #### C BC ####[facility] [address] [place], [place] [address]DrWesley Patton Platelet mean volume (Bld) [Entitic vol] 8.5 fL Critically low 9.5-13.5 [facility] Comment on above: Performed By: #### C BC ####[facility] [address] [place] [id number]. Cipriano Patton PLT 215 103/ul Normal 150-450 [facility] Comment on above: Performed By: #### C BC ####[facility] [address] [place] [id number]. Cipriano Patton RBC 4.66 106/ul Critically low 4.70-6.10 [facility] Comment on above: Performed By: #### C BC ####[facility] [address] [place] [address]Dr. Cipriano Patton WBC 6.4 103/ul Normal 4.0-11.0 [facility] Comment on above: Performed By: #### C BC ####[facility] [address] [place] [address]Dr. Cipriano Patton Complete Blood Count and Dif marci 12-27-2022 Anisocytosis Ql (Bld) [facility] [place] Other Basophilic stippling LM Ql (Bld) [facility] [place] Other RBC morphology finding Nom (Bld) [facility] [place] Other Complete Blood Count and Diff [facility] [place] Other FERRITINon 12-27-2022 Ferritin [Mass/Vol] 130.0 ng/mL Normal 26.0-388.0 [facility] Comment on above: Performed By: #### F ERR, FETIBC, B12FOL ####[facility] [address] [place] [address]Dr. Cipriano Patton IRON AND TIBCon 12-27-2022 Iron [Mass/Vol] 91.9311084 ug/dL 65.0-175 .0 ug/dL [place] Other IRON AND TIBC 257.0 ug/dL 250.0-450.0 ug/dL [facility] [place] Other IRON AND TIBC 35.4 % [place] Other IRON AND TIBC see note [place] Other % SATURATION 35.4 % Normal [facility] Comment on above: Performed By: #### F ERR, FETIBC, B12FOL ####[facility] [address] [place] [id number]. Cipriano Patton Iron [Mass/Vol] 91.0 ug/dL Normal 65.0-175.0 [facility] Comment on above: Performed By: #### F ERR, FETIBC, B12FOL ####[facility] [address] [place] [address]Dr. Cipriano Patton TIBC DIRECT 257.0 ug/dL Normal 250.0-450.0 [facility] Comment on above: Performed By: #### F ERR, FETIBC, B12FOL ####[facility] [address] [place], [place] [address]Dr. Cipriano Patton VIT B12 AND FOLATEon 023 Cobalamin (Vitamin B12) [Mass/Vol] 269.7514096 pg/mL 193.0-986.0 pg/mL [place] Other VIT B12 AND FOLATE 27.50 ng/mL 8.60-58.9 0 ng/mL [place] Other Cobalamin (Vitamin B12) [Mass/Vol] 628.0 pg/mL Normal 193.0-986.0 [facility] Comment on above: Performed By: #### F ERR, FETIBC, B12FOL ####[facility] [address] [place] [address]Dr. Cipriano Patton FOLATE 27.50 ng/mL Normal 8.60-58.90 [facility] Comment on above: Performed By: #### F ERR, FETIBC, B12FOL ####[facility] [address] [place] [address]DrWesley Patton CBC,PLATELETSon 11-05-2022 Hematocrit (Bld) [Volume fraction] 40.7 % Normal 39.6-48.8 [facility] Comment on above: Performed By: #### ARCHIE GREENE, CHM7 #### [facility] (DEFAULT) [address] [place] [address] Hemoglobin (Bld) [Mass/Vol] 13.5 g/dL Normal 13.4-16.8 [facility] Comment on above: Performed By: #### ARCHIE GREENE, CHM7 #### [facility] (DEFAULT) [address] [place] [address]805 MCV (RBC) [Entitic vol] 89.1 fL Normal 79.0-94.5 [facility] Comment on above: Performed By: #### ARCHIE GREENE, CHM7 #### [facility] (DEFAULT) [address] [place] [address]116 Mean Cell Hgb 29.5 pg Normal 26.1-33.3 [facility] Comment on above: Performed By: #### ARCHIE GREENE, CHM7 #### [facility] (DEFAULT) [address] [place] [address] 64440 Mean Cell Hgb Conc 33.2 g/dL Normal 31.9-36.5 [facility] Comment on above: Performed By: #### ARCHIE GREENE, CHM7 #### [facility] (DEFAULT) [address] [place] [address] Platelet mean volume (Bld) [Entitic vol] 9.1 fL Normal 8.7-12.3 [facility] Comment on above: Performed By: #### ARCHIE GREENE, CHM7 #### [facility] (DEFAULT) [address] [address] Platelets (Bld) [#/Vol] 209 10*3/uL Normal 146-337 [facility] Comment on above: Performed By: #### ARCHIE GREENE, CHM7 #### [facility] (DEFAULT) [address] [place] [address] 25358 RBC (Bld) [#/Vol] 4.57 10*6/uL Normal 4.38-5.83 [facility] Comment on above: Performed By: #### ARCHIE GREENE, CHM7 #### [facility] (DEFAULT) [address] [place] [address] 13900 RBC Distribution 12.9 % Normal 10.9-14.3 [facility] Comment on above: Performed By: #### ARCHIE GREENE, CHM7 #### [facility] (DEFAULT) [address] [place] [address]7840 WBC (Bld) [#/Vol] 6.15 10*3/uL Normal 3.73-10.10 [facility] Comment on above: Performed By: #### ARCHIE GREENE, CHM7 #### Ricarda [facility] (DEFAULT) [address] [place] [address] 56942 CHEM 7 (LYTES,BUN,CREA,GLUC) on 11-05-2022 Anion gap [Moles/Vol] 15 mmol/L Normal 7-[address] [facility] Comment on above: Performed By: #### ARCHIE GREENE, CHM7 #### [facility] (DEFAULT) [address] [place] [address] 42771 Chloride [Moles/Vol] 105 mmol/L Normal 98-108 [facility] Comment on above: Performed By: #### ARCHIE GREENE, CHM7 #### [facility] (DEFAULT) [address] [place] [address] 37995 CO2 [Moles/Vol] 22 mmol/L Normal 21-31 [facility] Comment on above: Performed By: #### ARCHIE GREENE, CHM7 #### [facility] (DEFAULT) [address] [place] [address] 34846 Creatinine [Mass/Vol] 1.05 mg/dL Normal 0.70-1.[address] [facility] Comment on above: Performed By: #### ARCHIE GREENE, CHM7 #### [facility] (DEFAULT) [address] [place] [address]0561 GFR/1.73 sq M.predicted among non-blacks MDRD (S/P/Bld) [Vol rate/Area] 69 mL/min/{1.73_m2} Normal >=60 [facility] Comment on above: Result Comment: Repo rted eGFR is based on the CKD-EPI 2020 equation using creatinine, age, and sex. Performed By: #### Dinora BIRMINGHAM HFP, CHM7 #### [facility] (DEFAULT) [address] [place] [address] 20805 Glucose [Mass/Vol] 68 mg/dL Low 70-99 [facility] Comment on above: Performed By: #### Dinora B[place] HFP, CHM7 #### [facility] (DEFAULT) [address] [place] [address] 31337 Osmolality [Osmolality] 289 mosm/kg Normal 278-305 [facility] Comment on above: Performed By: #### Dinora B[place] HFP, CHM7 #### [facility] (DEFAULT) [address] [place] [address] 69058 Potassium [Moles/Vol] 4.2 mmol/L Normal 3.5-5.[address] [facility] Comment on above: Performed By: #### Dinora [place], HFP, CHM7 #### [facility] (DEFAULT) [address] [place] [address] 33123 Sodium [Moles/Vol] 138 mmol/L Normal 135-145 [facility] Comment on above: Performed By: #### M VALENCIA, HFP, CHM7 #### [facility] (DEFAULT) [address] [place] [address] 49800 Urea nitrogen [Mass/Vol] 17 mg/dL Normal 7-25 [facility] Comment on above: Performed By: #### M VALENCIA, HFP, CHM7 #### [facility] (DEFAULT) [address] [place] [address] 06097 Urea nitrogen/Creatinine [Mass ratio] 16 mg/mg Normal [facility] Comment on above: Performed By: #### M VALENCIA HFP, CHM7 #### [facility] (DEFAULT) [address] [place] [address] 74994 HEPATIC FUNCTION PANELon Albumin [Mass/Vol] 3.4 g/dL Low 3.5-5.0 [facility] Comment on above: Performed By: #### Dinora [place], HFP, CHM7 #### [facility] (DEFAULT) [address] [place] [address] 93120 ALP [Catalytic activity/Vol] 47 U/L Normal 32-126 [facility] Comment on above: Performed By: #### Dinora B[place], HFP, CHM7 #### [facility] (DEFAULT) [address] [place] [address] 03158 ALT [Catalytic activity/Vol] 6 U/L Low 10-52 [facility] Comment on above: Performed By: #### Dinora [place], HFP, CHM7 #### [facility] (DEFAULT) [address] [place] [address] 79065 AST [Catalytic activity/Vol] 14 U/L Normal 10-39 [facility] Comment on above: Performed By: #### M VALENCIA, HFP, CHM7 #### [facility] (DEFAULT) [address] [place] [address] 43687 Bilirubin [Mass/Vol] 0.7 mg/dL Normal <1.5 [facility] Comment on above: Performed By: #### M VALENCIA, HFP, CHM7 #### [facility] (DEFAULT) [address] [place] [address] 36411 Bilirubin.indirect [Mass/Vol] 0.1 mg/dL Normal <0.3 [facility] Comment on above: Performed By: #### M VALENCIA, HFP, CHM7 #### [facility] (DEFAULT) [address] [place] [address] 44306 Protein [Mass/Vol] 5.9 g/dL Low 6.4-8.3 [facility] Comment on above: Performed By: #### ARCHIE GREENE, CHM7 #### [facility] (DEFAULT) [address] [place] [address] 84681 MAGNESIUMon 11-05-2022 Magnesium [Mass/Vol] 1.9 mg/dL Normal 1.6-2.6 [facility] Comment on above: Performed By: #### ARCHIE GREENE, CHM7 #### [facility] (DEFAULT) [address] [place] [address] 49132 PT,INR,PTTon 11-05-2022 aPTT Coag (Bld) [Time] 33.6 s Normal 24.0-34.3 [facility] Comment on above: Performed By: #### ARCHIE GREENE, CHM7 #### [facility] (DEFAULT) [address] [place] [address] 98177 INR Coag (PPP) [Relative time] 1.2 {INR} High 0.9-1.1 [facility] Comment on above: Performed By: #### ARCHIE GREENE, [facility] #### [facility] (DEFAULT) [address] [place] [address] 98496 PT Coag (PPP) [Time] 14.8 s High 11.9-14.2 [facility] Comment on above: Performed By: #### ARCHIE GREENE, [facility] #### [facility] (DEFAULT) [address] [place] [address] 54695 CBC,PLATELETSon 11-04-2022 Hematocrit (Bld) [Volume fraction] 37.3 % Low 39.6-48.8 [facility] Comment on above: Performed By: #### [facility] #### [facility] (DEFAULT) [address] [place] [address] 56293 Hemoglobin (Bld) [Mass/Vol] 12.5 g/dL Low 13.4-16.8 [facility] Comment on above: Performed By: #### [facility] #### [facility] (DEFAULT) [address] [place] [address] 54923 MCV (RBC) [Entitic vol] 88.4 fL Normal 79.0-94.5 [facility] Comment on above: Performed By: #### H EMOGC #### [facility] (DEFAULT) [address] [place] [address] 11773 Mean Cell Hgb 29.6 pg Normal 26.1-33.3 [facility] Comment on above: Performed By: #### H EMOGC #### Ricarda [facility] (DEFAULT) [address] [address] Mean Cell Hgb Conc 33.5 g/dL Normal 31.9-36.5 [facility] Comment on above: Performed By: #### H EMO #### [facility] (DEFAULT) [address] [place] [address] 85783 Platelet mean volume (Bld) [Entitic vol] 9.0 fL Normal 8.7-12.3 [facility] Comment on above: Performed By: #### H EMO #### [facility] (DEFAULT) [address] [address] Platelets (Bld) [#/Vol] 198 10*3/uL Normal 146-337 [facility] Comment on above: Performed By: #### H EMOGC #### [facility] (DEFAULT) [address] [place] [address] 93860 RBC (Bld) [#/Vol] 4.22 10*6/uL Low 4.38-5.83 [facility] Comment on above: Performed By: #### H EMOGC #### [facility] (DEFAULT) [address] [address] [address] RBC Distribution 12.9 % Normal 10.9-14.3 [facility] Comment on above: Performed By: #### H EMOGC #### [facility] (DEFAULT) [address] [place] [address]54 WBC (Bld) [#/Vol] 5.77 10*3/uL Normal 3.73-10.10 [facility] Comment on above: Performed By: #### [facility] #### [facility] (DEFAULT) [address] [place] [address]11 CHEM 7 (LYTES,BUN,CREA,GLUC) on 11-04-2022 Anion gap [Moles/Vol] 10 mmol/L Normal 7-[address] [facility] Comment on above: Performed By: #### M GO, HFP, CHM7 #### [facility] (DEFAULT) [address] [place] [address] 38521 Chloride [Moles/Vol] 108 mmol/L Normal 98-108 [facility] Comment on above: Performed By: #### M GO, HFP, CHM7 #### U [facility] (DEFAULT) [address] [place] [address] 18201 CO2 [Moles/Vol] 22 mmol/L Normal 21-31 [facility] Comment on above: Performed By: #### M VALENCIA, HFP, CHM7 #### U [facility] (DEFAULT) [address] [place] [address] 96485 Creatinine [Mass/Vol] 0.91 mg/dL Normal 0.70-1.[address] [facility] Comment on above: Performed By: #### M GO, HFP, CHM7 #### U [facility] (DEFAULT) [address] [place] [address] GFR/1.73 sq M.predicted among non-blacks MDRD (S/P/Bld) [Vol rate/Area] 82 mL/min/{1.73_m2} Normal >=60 [facility] Comment on above: Result Comment: Repo rted eGFR is based on the CKD-EPI 2020 equation using creatinine, age, and sex. Performed By: #### M GO, HFP, CHM7 #### U [facility] (DEFAULT) [address] [place] [address] 02684 Glucose [Mass/Vol] 81 mg/dL Normal 70-99 [facility] Comment on above: Performed By: #### ARCHIE GREENE, CHM7 #### U [facility] (DEFAULT) [address] [place] [address]73 Osmolality [Osmolality] 285 mosm/kg Normal 278-305 [facility] Comment on above: Performed By: #### ARCHIE GREENE, CHM7 #### U [facility] (DEFAULT) [address] [place] [address] 94181 Potassium [Moles/Vol] 4.0 mmol/L Normal 3.5-5.[address] [facility] Comment on above: Performed By: #### ARCHIE GREENE, CHM7 #### U [facility] (DEFAULT) [address] [place] [address] 26037 Sodium [Moles/Vol] 136 mmol/L Normal 135-145 [facility] Comment on above: Performed By: #### ARCHIE GREENE, CHM7 #### U [facility] (DEFAULT) [address] [place] [address] 72970 Urea nitrogen [Mass/Vol] 15 mg/dL Normal 7-25 [facility] Comment on above: Performed By: #### ARCHIE GREENE, CHM7 #### U [facility] (DEFAULT) [address] [place] [address] 81188 Urea nitrogen/Creatinine [Mass ratio] 16 mg/mg Normal [facility] Comment on above: Performed By: #### ARCHIE GREENE, CHM7 #### [facility] (DEFAULT) [address] [place] [address] ABDOMEN/ABDOMEN-PELVIS (I NTERPRETATION - OUTSIDE IMAGE)on [...] disease in the abdomen or pelvis. Normal [facility] CT Abdomen and Pelvison 10-21 IMPRESSION: 1. [...] metastatic disease in the abdomen or pelvis. [facility] Radiology Study observation (narrative) [facility] CT Abdomen and PelvisOrdered By: Samantha Saldaña on 11-04-2022 [facility] Work Phone: HEPATIC FUNCTION PANELon Albumin [Mass/Vol] 3.2 g/dL Low 3.5-5.0 [facility] Comment on above: Performed By: #### ARCHIE GREENE, CHM7 #### [facility] (DEFAULT) [address] [place] [address] 72583 ALP [Catalytic activity/Vol] 41 U/L Normal 32-126 [facility] Comment on above: Performed By: #### ARCHIE GREENE, CHM7 #### [facility] (DEFAULT) [address] [place] [address] 93845 ALT [Catalytic activity/Vol] 7 U/L Low 10-52 [facility] Comment on above: Performed By: #### ARCHIE GREENE, CHM7 #### [facility] (DEFAULT) [address] [place] [address] 14914 AST [Catalytic activity/Vol] 13 U/L Normal 10-39 [facility] Comment on above: Performed By: #### ARCHIE GREENE, CHM7 #### [facility] (DEFAULT) [address] [place] [address] 79313 Bilirubin [Mass/Vol] 0.6 mg/dL Normal <1.5 [facility] Comment on above: Performed By: #### M ARCHIE [place], CHM7 #### [facility] (DEFAULT) [address] [place] [address] 32494 Bilirubin.indirect [Mass/Vol] 0.1 mg/dL Normal <0.3 [facility] Comment on above: Performed By: #### ARCHIE GREENE, CHM7 #### [facility] (DEFAULT) [address] [place] [address] 54473 Protein [Mass/Vol] 5.6 g/dL Low 6.4-8.3 [facility] Comment on above: Result Comment: Resu lts inconsistent with previous results Performed By: #### M ARCHIE [place], CHM7 #### U [facility] (DEFAULT) [address] [place] [address] 31835 MAGNESIUMon 11-04-2022 Magnesium [Mass/Vol] 1.8 mg/dL Normal 1.6-2.6 [facility] Comment on above: Performed By: #### ARCHIE GREENE, CHM7 #### U [facility] (DEFAULT) [address] [place] [address] 44347 PT,INR,PTTon 11-04-2022 aPTT Coag (Bld) [Time] 31.9 s Normal 24.0-34.3 [facility] Comment on above: Performed By: #### P TPTT #### U [facility] (DEFAULT) [address] [place] [address] 05016 INR Coag (PPP) [Relative time] 1.1 {INR} Normal 0.9-1.1 [facility] Comment on above: Performed By: #### P TPTT #### U [facility] (DEFAULT) [address] [place] [address] 95958 PT Coag (PPP) [Time] 14.3 s High 11.9-14.2 [facility] Comment on above: Performed By: #### P TPTT #### [facility] (DEFAULT) [address] [place] [address]34 CALCIUMon 11-03-2022 Calcium [Mass/Vol] 9.4 mg/dL Normal 8.6-10.5 [facility] Comment on above: Performed By: #### M VALENCIA, [facility], CHM7 #### U [facility] (DEFAULT) [address] [place] [address] 66828 CBC AND ELECTRONIC DIFFon Abs Baso Auto < Normal 0.00-0.09 [facility] Comment on above: Performed By: #### L [id number] #### [facility] (DEFAULT) [address] [place] [address] 95003 Basophils/100 WBC (Bld) 0.2 % Normal [facility] Comment on above: Performed By: #### L [id number] #### [facility] (DEFAULT) [address] [place] [address] 81716 DIFF STATUS Electronic Differential Normal [facility] Comment on above: Performed By: #### L [id number] #### [facility] (DEFAULT) [address] [place] [address] 78592 Eosinophils (Bld) [#/Vol] 0.25 10*3/uL Normal 0.00-0.48 [facility] Comment on above: Performed By: #### L [id number] #### [facility] (DEFAULT) [address] [place] [address] 46399 Eosinophils/100 WBC (Bld) 3.0 % Normal [facility] Comment on above: Performed By: #### L [id number] #### [facility] (DEFAULT) [address] [place] [address] 37351 Hematocrit (Bld) [Volume fraction] 43.6 % Normal 39.6-48.8 [facility] Comment on above: Performed By: #### L [id number] #### [facility] (DEFAULT) [address] [place] [address] 95119 Hemoglobin (Bld) [Mass/Vol] 14.5 g/dL Normal 13.4-16.8 [facility] Comment on above: Performed By: #### L [id number] #### [facility] (DEFAULT) [address] [address] Immature Grans % 0.2 % Normal [facility] Comment on above: Performed By: #### L AB980 #### [facility] (DEFAULT) [address] [address] Immature Grans Absolute < Normal <=0.07 [facility] Comment on above: Performed By: #### L [id number] #### [facility] (DEFAULT) [address] [address] Lymphocytes (Bld) [#/Vol] 1.05 10*3/uL Normal 0.83-3.57 [facility] Comment on above: Performed By: #### L [id number] #### [facility] (DEFAULT) [address] [address] Lymphocytes/100 WBC (Bld) 12.5 % Normal [facility] Comment on above: Performed By: #### L AB980 #### [facility] (DEFAULT) [address] [address] MCV (RBC) [Entitic vol] 89.0 fL Normal 79.0-94.5 [facility] Comment on above: Performed By: #### L [id number] #### [facility] (DEFAULT) [address] [address] Mean Cell Hgb 29.6 pg Normal 26.1-33.3 [facility] Comment on above: Performed By: #### L AB980 #### [facility] (DEFAULT) [address] [address] Mean Cell Hgb Conc 33.3 g/dL Normal 31.9-36.5 [facility] Comment on above: Performed By: #### L AB980 #### [facility] (DEFAULT) [address] [address] Monocytes (Bld) [#/Vol] 1.15 10*3/uL High 0.24-0.93 [facility] Comment on above: Performed By: #### L AB980 #### [facility] (DEFAULT) [address] [place] [address] 41617 Monocytes/100 WBC (Bld) 13.7 % Normal [facility] Comment on above: Performed By: #### L [id number] #### [facility] (DEFAULT) [address] [place] [address] 37374 Nucleated RBC 0.0 /100 WBC Normal <=0.2 [facility] Comment on above: Performed By: #### L [id number] #### [facility] (DEFAULT) [address] [place] [address] 17775 Platelet mean volume (Bld) [Entitic vol] 8.8 fL Normal 8.7-12.3 [facility] Comment on above: Performed By: #### L [id number] #### [facility] (DEFAULT) [address] [place] [address] 49937 Platelets (Bld) [#/Vol] 223 10*3/uL Normal 146-337 [facility] Comment on above: Performed By: #### L [id number] #### [facility] (DEFAULT) [address] [place] [address] 92130 RBC (Bld) [#/Vol] 4.90 10*6/uL Normal 4.38-5.83 [facility] Comment on above: Performed By: #### L [id number] #### [facility] (DEFAULT) [address] [place] [address] 01883 RBC Distribution 12.9 % Normal 10.9-14.3 [facility] Comment on above: Performed By: #### L [id number] #### U [facility] (DEFAULT) [address] [place] [address] 63736 Segs + Bands Auto 70.4 % Normal [facility] Comment on above: Performed By: #### L [id number] #### [facility] (DEFAULT) [address] [address] Segs + Bands,Absolute Auto 5.91 K/uL Normal 1.57-6.19 [facility] Comment on above: Performed By: #### L [id number] #### U [facility] (DEFAULT) [address] [address] WBC (Bld) [#/Vol] 8.40 10*3/uL Normal 3.73-10.10 [facility] Comment on above: Performed By: #### L [id number] #### U [facility] (DEFAULT) [address] [address] CBC AUTO DIFFon 11-03-2022 BASO # 0.0 103/ul Normal 0.0-0.1 [facility] Comment on above: Performed By: #### C BC #### [facility] [address] [place] [address] Dr. Cipriano Patton Basophils/100 WBC (Bld) 0.3 % Normal 0.2-2.0 [facility] Comment on above: Performed By: #### C BC #### [facility] [address] [place] [address] Dr. Cipriano Patton EO # 0.3 103/ul Normal 0.0-0.7 [facility] Comment on above: Performed By: #### C BC #### [facility] [address] [place] [address] Dr. Cipriano Patton Eosinophils/100 WBC (Bld) 4.0 % Normal 0.9-7.0 [facility] Comment on above: Performed By: #### C BC #### [facility] [address] [place] [address] Dr. Cipriano Patton Erythrocyte distribution width (RBC) [Ratio] 13.1 % Normal 11.0-15.0 [facility] Comment on above: Performed By: #### C BC #### [facility] [address] [place] [address] Dr. Cipriano Patton Hematocrit (Bld) [Volume fraction] 41.6 % Critically low 42.0-54.0 [facility] Comment on above: Performed By: #### C BC #### [facility] [address] [address] [address] Cipriano Patton Hemoglobin (Bld) [Mass/Vol] 14.1 g/dL Normal 14.0-18.0 [facility] Comment on above: Performed By: #### C BC #### [facility] [address] [place] [address] Dr. Cipriano Patton IG # 0.02 10e3/ul Normal 0.00-0.03 [facility] Comment on above: Performed By: #### C BC #### [facility] [address] [place] [address] Dr. Cipriano Patton IG % 0.3 % Normal 0.0-0.5 [facility] Comment on above: Performed By: #### C BC #### [facility] [address] [place] [address] Dr. Cipriano Patton LYMPH # 1.0 103/ul Critically low 1.2-3.8 [facility] Comment on above: Performed By: #### C BC #### [facility] [address] [place] [address] Dr. Cipriano Patton Lymphocytes/100 WBC (Bld) 13.0 % Critically low 20.5-60.0 [facility] Comment on above: Performed By: #### C BC #### [facility] [address] [place] [address] Dr. Cipriano Patton MANUAL DIFF REQ NO Normal [facility] Comment on above: Performed By: #### C BC #### [facility] [address] [place] [address] Dr. Cipriano Patton MCH (RBC) [Entitic mass] 29.6 pg Normal 25.9-34.0 [facility] Comment on above: Performed By: #### C BC #### [facility] [address] [place] [address] Dr. Cipriano Patton MCHC (RBC) [Mass/Vol] 33.9 g/dL Normal 29.9-35.2 [facility] Comment on above: Performed By: #### C BC #### [facility] [address] [address] [address] Cipriano Patton MCV (RBC) [Entitic vol] 87.2 fL Normal 80.0-94.0 [facility] Comment on above: Performed By: #### C BC #### [facility] [address] [address] [address] Cipriano Patton MONO # 0.9 103/ul Critically high 0.3-0.8 [facility] Comment on above: Performed By: #### C BC #### [facility] [address] [address] [address] Cipriano Patton Monocytes/100 WBC (Bld) 12.9 % Critically high 1.7-12. 0 [facility] Comment on above: Performed By: #### C BC #### [facility] [address] [address] [address] Cipriano Patton NEUT # 5.1 103/ul Normal 1.4-6.5 [facility] Comment on above: Performed By: #### C BC #### [facility] [address] [address] [address] Cipriano Patton Neutrophils/100 WBC (Bld) 69.5 % Normal 43.0-75.0 [facility] Comment on above: Performed By: #### C BC #### [facility] [address] [address] [address] Cipriano Patton Platelet mean volume (Bld) [Entitic vol] 8.7 fL Critically low 9.5-13.5 [facility] Comment on above: Performed By: #### C BC #### [facility] [address] [address] [address] Cipriano Patton PLT 216 103/ul Normal 150-450 [facility] Comment on above: Performed By: #### C BC #### [facility] [address] [address] [address] Cipriano Patton RBC 4.77 106/ul Normal 4.70-6.10 [facility] Comment on above: Performed By: #### C BC #### [facility] [address] [place], [place] [address] Dr. Cipriano Patton WBC 7.3 103/ul Normal 4.0-11.0 [facility] Comment on above: Performed By: #### C BC #### [facility] [address] [place], [place] [address] Dr. Cipriano Patton [facility] 7 - EDon 11-03-2022 Anion gap [Moles/Vol] 11 mmol/L Normal 7-[address] [facility] Comment on above: Performed By: #### M GO, HFP, CHM7 #### [facility] (DEFAULT) [address] [place] [address] 86954 Chloride [Moles/Vol] 105 mmol/L Normal 98-108 [facility] Comment on above: Performed By: #### M GO, HFP, CHM7 #### [facility] (DEFAULT) [address] [place] [address] 26745 CO2 [Moles/Vol] 27 mmol/L Normal 21-31 [facility] Comment on above: Performed By: #### M GO, HFP, CHM7 #### [facility] (DEFAULT) [address] [place] [address]102 Creatinine [Mass/Vol] 1.02 mg/dL Normal 0.70-1.[address] [facility] Comment on above: Performed By: #### M GO, HFP, CHM7 #### [facility] (DEFAULT) [address] [place] [address] 40315 GFR/1.73 sq M.predicted among non-blacks MDRD (S/P/Bld) [Vol rate/Area] 72 mL/min/{1.73_m2} Normal >=60 [facility] Comment on above: Result Comment: Repo rted eGFR is based on the CKD-EPI 2020 equation using creatinine, age, and sex. Performed By: #### M GO, HFP, CHM7 #### [facility] (DEFAULT) [address] [place] [address]180 Glucose [Mass/Vol] 97 mg/dL Normal 70-99 [facility] Comment on above: Performed By: #### ARCHIE GREENE, CHM7 #### [facility] (DEFAULT) [address] [place] [address] Osmolality [Osmolality] 291 mosm/kg Normal 278-305 [facility] Comment on above: Performed By: #### ARCHIE GREENE, CHM7 #### [facility] (DEFAULT) [address] [place] [address] 61503 Potassium [Moles/Vol] 4.6 mmol/L Normal 3.5-5.[address] [facility] Comment on above: Performed By: #### ARCHIE GREENE, CHM7 #### [facility] (DEFAULT) [address] [place] [address]234 Sodium [Moles/Vol] 138 mmol/L Normal 135-145 [facility] Comment on above: Performed By: #### ARCHIE GREENE, CHM7 #### [facility] (DEFAULT) [address] [place] [address] 15392 Urea nitrogen [Mass/Vol] 16 mg/dL Normal 7-25 [facility] Comment on above: Performed By: #### ARCHIE GREENE, CHM7 #### [facility] (DEFAULT) [address] [place] [address] 24024 Urea nitrogen/Creatinine [Mass ratio] 16 mg/mg Normal [facility] Comment on above: Performed By: #### ARCHIE GREENE, CHM7 #### [facility] (DEFAULT) [address] [place] [address] ABD/PELV W CONon 11-03-[address] ABD/PELV W CON EXAMINATION: CT ABD/PELV [...] by: ANKIT DANIEL Date: 2022-11-03 11:55 Normal [facility] HEPATIC FUNCTION PANELon Albumin [Mass/Vol] 3.9 g/dL Normal 3.5-5.0 [facility] Comment on above: Performed By: #### M ARCHIE [place] CHM7 #### [facility] (DEFAULT) [address] [address] ALP [Catalytic activity/Vol] 49 U/L Normal 32-126 [facility] Comment on above: Performed By: #### M ARCHIE [place] CHM7 #### [facility] (DEFAULT) [address] [address] ALT [Catalytic activity/Vol] 8 U/L Low 10-52 [facility] Comment on above: Performed By: #### ARCHIE GREENE, CHM7 #### [facility] (DEFAULT) [address] [address] AST [Catalytic activity/Vol] 14 U/L Normal 10-39 [facility] Comment on above: Performed By: #### ARCHIE GREENE, CHM7 #### [facility] (DEFAULT) [address] [place] [address]284 Bilirubin [Mass/Vol] 0.6 mg/dL Normal <1.5 [facility] Comment on above: Performed By: #### ARCHIE GREENE, CHM7 #### [facility] (DEFAULT) [address] [place] [address] 17318 Bilirubin.indirect [Mass/Vol] 0.1 mg/dL Normal <0.3 [facility] Comment on above: Performed By: #### ARCHIE GREENE, CHM7 #### [facility] (DEFAULT) [address] [place] [address] 05486 Protein [Mass/Vol] 6.8 g/dL Normal 6.4-8.3 [facility] Comment on above: Performed By: #### ARCHIE GREENE, CHM7 #### [facility] (DEFAULT) [address] [place] [address] LACTATE, WHOLE BLOODon 11-03 Lactate, Whole Blood 1.1 mmol/L Normal 0.5-1.6 [facility] Comment on above: Performed By: #### B GLACT #### [facility] (DEFAULT) [address] [place] [address] LIPASEon 11-03-2022 Lipase [Catalytic activity/Vol] 13 U/L Normal 11-82 [facility] Comment on above: Performed By: #### ARCHIE GREENE, CHM7 #### [facility] (DEFAULT) [address] [place] [address] 64683 MAGNESIUMon 11-03-2022 Magnesium [Mass/Vol] 2.0 mg/dL Normal 1.6-2.6 [facility] Comment on above: Performed By: #### ARCHIE GREENE, CHM7 #### [facility] (DEFAULT) [address] [place] [address] 63010 PHOSPHATE, INORGANICon 11-03 Phosphorous 3.3 mg/dL Normal 2.2-4.6 [facility] Comment on above: Performed By: #### M , [facility], CHM7 #### [facility] (DEFAULT) [address] [place] [address] PROF 14(COMP METB)on 023 Albumin [Mass/Vol] 3.4 g/dL Normal 3.4-5.[address] [facility] Comment on above: Performed By: #### C MP #### [facility] [address] [place] [address] Dr. Cipriano Patton Albumin/Globulin [Mass ratio] 1.0 {ratio} Normal [facility] Comment on above: Performed By: #### C MP #### [facility] [address] [place] [address] Dr. Cipriano Patton ALP [Catalytic activity/Vol] 53 U/L Normal 46-116 [facility] Comment on above: Performed By: #### C MP #### [facility] [address] [address] [address] Cipriano Patton ALT [Catalytic activity/Vol] 13 U/L Critically low 16-63 [facility] Comment on above: Performed By: #### C MP #### [facility] [address] [place] [address] Dr. Cipriano Patton Anion gap [Moles/Vol] 9.3 mmol/L Normal [facility] Comment on above: Performed By: #### C MP #### [facility] [address] [place] [address] Dr. Cipriano Patton AST [Catalytic activity/Vol] 24 U/L Normal 15-37 [facility] Comment on above: Performed By: #### C MP #### [facility] [address] [place] [address] Dr. Cipriano Patton Bilirubin [Mass/Vol] 0.5 mg/dL Normal 0.2-1.0 [facility] Comment on above: Performed By: #### C MP #### [facility] [address] [place] [address] Dr. Cipriano Patton Calcium [Mass/Vol] 9.2 mg/dL Normal 8.5-10.1 [facility] Comment on above: Performed By: #### C MP #### [facility] [address] [address] [address] Cipriano Patton Chloride [Moles/Vol] 105 mmol/L Normal 98-107 [facility] Comment on above: Performed By: #### C MP #### [facility] [address] [address] [address] Cipriano Patton CO2 [Moles/Vol] 30.4 mmol/L Normal 21.0-32.0 [facility] Comment on above: Performed By: #### C MP #### [facility] [address] [address] [address] Cipriano Patton Creatinine [Mass/Vol] 1.02 mg/dL Normal 0.70-1.30 [facility] Comment on above: Performed By: #### C MP #### [facility] [address] [place] [address] Dr. Cipriano Patton EGFR-AF NIUEAN >60 Normal >=60 [facility] Comment on above: Performed By: #### C MP #### [facility] [address] [address] [address] Cipriano Pattno EGFR-NON AF NIUEAN >60 Normal >=60 [facility] Comment on above: Performed By: #### C MP #### [facility] [address] [address] [address] Cipriano Patton Globulin (S) [Mass/Vol] 3.3 g/dL Normal [facility] Comment on above: Performed By: #### C MP #### [facility] [address] [address] [address] Cipriano Patton Glucose [Mass/Vol] 92 mg/dL Normal 74-106 [facility] Comment on above: Performed By: #### C MP #### [facility] [address] [place] [address] Dr. Cipriano Patton Potassium [Moles/Vol] 4.7 mmol/L Normal 3.5-5.1 [facility] Comment on above: Performed By: #### C MP #### [facility] [address] [place], [place] [address] Dr. Cipriano Patton Protein [Mass/Vol] 6.7 g/dL Normal 6.4-8.2 [facility] Comment on above: Performed By: #### C MP #### [facility] [address] [address] [address] Cipriano Patton Sodium [Moles/Vol] 140 mmol/L Normal 136-145 [facility] Comment on above: Performed By: #### C MP #### [facility] [address] [address] [address] Cipriano Patton Urea nitrogen [Mass/Vol] 18.0 mg/dL Normal 7.0-18.0 [facility] Comment on above: Performed By: #### C MP #### [facility] [address] [address] [address] Cipriano Patton Urea nitrogen/Creatinine [Mass ratio] 17.6 mg/mg Normal [facility] Comment on above: Performed By: #### C MP #### [facility] [id number] Cipriano Patton URINALYSISon 11-03-2022 Appearance (U) Clear Normal Clear [facility] Comment on above: Performed By: #### U RIN #### [facility] (DEFAULT) [address] [address] Bacteria ABSENT Normal ABSENT [facility] Comment on above: Performed By: #### U RIN #### [facility] (DEFAULT) [address] [address] Blood Urine Moderate Abnormal Negative [facility] Comment on above: Performed By: #### U RIN #### [facility] (DEFAULT) [address] [address] Color (U) Yellow Normal Yellow [facility] Comment on above: Performed By: #### U RIN #### [facility] (DEFAULT) [address] [address] Glucose Ql (U) Negative Normal Negative [facility] Comment on above: Performed By: #### U RIN #### [facility] (DEFAULT) [address] [place] [address] Ketones Ql (U) Trace Abnormal Negative [facility] Comment on above: Performed By: #### U RIN #### [facility] (DEFAULT) [address] [place] [address] Leukocyte esterase Test strip Ql (U) Negative Normal Negative [facility] Comment on above: Performed By: #### U RIN #### [facility] (DEFAULT) [address] [place] [address] Nitrites Urine Negative Normal Negative [facility] Comment on above: Performed By: #### U RIN #### [facility] (DEFAULT) [address] [place] [address] pH (U) 5.5 [pH] Normal 5.0-7.0 [facility] Comment on above: Performed By: #### U RIN #### [facility] (DEFAULT) [address] [place] [address] Protein Urine Negative Normal Negative [facility] Comment on above: Performed By: #### U RIN #### [facility] (DEFAULT) [address] [place] [address] RBC Urine 6-9 Abnormal 0-2 [facility] Comment on above: Performed By: #### U RIN #### [facility] (DEFAULT) [address] [place] [address] Specific [place] Urine <= Normal >1.001-<1.035 [facility] Comment on above: Performed By: #### U RIN #### [facility] (DEFAULT) [address] [place] [address] Squamous/Epithelial Cells 1/hpf = 1+ Normal 1/hpf = 1+, 2-5/hpf = 2+, 0/hpf = 0+, ABSENT [facility] Comment on above: Performed By: #### U RIN #### [facility] (DEFAULT) [address] [place] [address] Urobilinogen Urine 0.2 E.U./dL Normal 0.2 E.U/d L, 1.0 E.U/dL [facility] Comment on above: Performed By: #### U RIN #### [facility] (DEFAULT) [address] [place] [address] WBC Urine 0-5 Normal 0-5 [facility] Comment on above: Performed By: #### U RIN #### [facility] (DEFAULT) [address] [place] [address] URINE CULTUREon 11-03-2022 Bacteria identified Cx Nom (U) No significant growth. Routine cultures are evaluated for significant uro-pathogens >=10,000 CFU/mL Normal [facility] Comment on above: Order Comment: For i ndwelling catheters, specimen collection is acceptable on catheter day 1 and 2 only. Jauregui top vacutainer. Urine must be to the fill line to process (4mls). If minimum volume, send urine in a yellow top vacutainer tube. Performed By: #### U R #### [facility] (DEFAULT) [address] [place] [address] XR ABD FLAT UP_PA Lobo 11-03 XR [...] Date: 2022-11-03 09:52 Normal [facility] GLYCOHEMOGLOBIN A1Con 2021 ADA RECOMMENDATION SEE BELOW Normal [facility] Comment on above: Result Comment: ADA RECOMMENDED LIMIT 4.0 - 6.0 ADA THERAPEUTIC TARGET < 7.0 ACTION SUGGESTED > 7.0 Performed By: #### A 1C #### [facility] [address] [address] [address] Cipriano Patton Glucose [Mass/Vol] 111 mg/dL Normal [facility] Comment on above: Performed By: #### A 1C #### [facility] [address] [address] [address] Cipriano Patton HbA1c (Bld) [Mass fraction] 5.5 % Normal 4.5-6.2 [facility] Comment on above: Performed By: #### A 1C #### [facility] [address] [address] [address] Cipriano Patton PROF CHEM 8 (BAS METB)on Anion gap [Moles/Vol] 9.4 mmol/L Normal [facility] Comment on above: Performed By: #### B MP ####[facility] [address] [address]DrWesley Patton Calcium [Mass/Vol] 9.2 mg/dL Normal 8.5-10.[address] [facility] Comment on above: Performed By: #### B MP ####[facility] [address] [address]DrWesley Patton Chloride [Moles/Vol] 103 mmol/L Normal 98-107 [facility] Comment on above: Performed By: #### B MP ####[facility] [address] [id number] Patton CO2 [Moles/Vol] 30.6 mmol/L Normal 21.0-32.0 [facility] Comment on above: Performed By: #### B MP ####[facility] [address] [address]Dr. Cipriano Patton Creatinine [Mass/Vol] 1.06 mg/dL Normal 0.70-1.30 [facility] Comment on above: Performed By: #### B MP ####[facility] [address] [address]Dr. Cipriano Patton EGFR-AF NIUEAN >60 Normal >=60 [facility] Comment on above: Performed By: #### B MP ####[facility] [address] [address]Dr. Cipriano Abdi EGFR-NON AF NIUEAN >60 Normal >=60 [facility] Comment on above: Performed By: #### B MP ####[facility] [address] [place], [place] [address]Dr. Cipriano Patton Glucose [Mass/Vol] 96 mg/dL Normal 74-106 [facility] Comment on above: Performed By: #### B MP ####[facility] [address] [place], [place] [address]Dr. Cipriano Patton Potassium [Moles/Vol] 5.0 mmol/L Normal 3.5-5.1 [facility] Comment on above: Performed By: #### B MP ####[facility] [address] [place], [place] [address]Dr. Cipriano Abdi Sodium [Moles/Vol] 138 mmol/L Normal 136-[address] [facility] Comment on above: Performed By: #### B MP ####[facility] [address] [place], [place] [address]Dr. Cipriano Abdi Urea nitrogen [Mass/Vol] 29.0 mg/dL Critically high 7.0-18.0 [facility] Comment on above: Performed By: #### B MP ####[facility] [address] [place], [place] [address]Dr. Cipriano Patton Urea nitrogen/Creatinine [Mass ratio] 27.4 mg/mg Normal [facility] Comment on above: Performed By: #### B MP ####[facility] [address] [address]Dr. Cipriano Patton CBC AUTO DIFFon 07-02-2022 BASO # 0.0 103/ul Normal 0.0-0.1 [facility] Comment on above: Performed By: #### C BC #### [facility] [address] [address] [address] Cipriano Patton Basophils/100 WBC (Bld) 0.5 % Normal 0.2-2.0 [facility] Comment on above: Performed By: #### C BC #### [facility] [address] [address] [address] Cipriano Patton EO # 0.4 103/ul Normal 0.0-0.7 [facility] Comment on above: Performed By: #### C BC #### [facility] [address] [address] [address] Cipriano Patton Eosinophils/100 WBC (Bld) 6.9 % Normal 0.9-7.0 [facility] Comment on above: Performed By: #### C BC #### [facility] [address] [address] [address] Cipriano Patton Erythrocyte distribution width (RBC) [Ratio] 13.5 % Normal 11.0-15.0 [facility] Comment on above: Performed By: #### C BC #### [facility] [address] [address] [address] Cipriano Patton Hematocrit (Bld) [Volume fraction] 42.5 % Normal 42.0-54.0 [facility] Comment on above: Performed By: #### C BC #### [facility] [address] [address] [address] Cipriano Patton Hemoglobin (Bld) [Mass/Vol] 13.7 g/dL Critically low 14.0-18.0 [facility] Comment on above: Performed By: #### C BC #### [facility] [address] [address] [address] Cipriano Patton IG # 0.02 10e3/ul Normal 0.00-0.03 [facility] Comment on above: Performed By: #### C BC #### [facility] [address] [place] [address] Dr. Cipriano Patton IG % 0.4 % Normal 0.0-0.5 [facility] Comment on above: Performed By: #### C BC #### [facility] [address] [place] [address] Dr. Cipriano Patton LYMPH # 1.3 103/ul Normal 1.2-3.8 [facility] Comment on above: Performed By: #### C BC #### [facility] [address] [place] [address] Dr. Cipriano Patton Lymphocytes/100 WBC (Bld) 23.7 % Normal 20.5-60.0 [facility] Comment on above: Performed By: #### C BC #### [facility] [address] [place] [address] Dr. Cipriano Patton MANUAL DIFF REQ NO Normal [facility] Comment on above: Performed By: #### C BC #### [facility] [address] [place] [address] Dr. Cipriano Patton MCH (RBC) [Entitic mass] 29.4 pg Normal 25.9-34.0 [facility] Comment on above: Performed By: #### C BC #### [facility] [address] [place] [address] Dr. Cipriano Patton MCHC (RBC) [Mass/Vol] 32.2 g/dL Normal 29.9-35.2 [facility] Comment on above: Performed By: #### C BC #### [facility] [address] [place] [address] Dr. Cipriano Patton MCV (RBC) [Entitic vol] 91.2 fL Normal 80.0-94.0 [facility] Comment on above: Performed By: #### C BC #### [facility] [address] [place] [address] Dr. Cipriano Patton MONO # 0.9 103/ul Critically high 0.3-0.8 [facility] Comment on above: Performed By: #### C BC #### [facility] [address] [place] [address] Dr. Cipriano Patton Monocytes/100 WBC (Bld) 15.8 % Critically high 1.7-12. 0 [facility] Comment on above: Performed By: #### C BC #### [facility] [address] [place] [address] Dr. Cipriano Patton NEUT # 2.9 103/ul Normal 1.4-6.5 [facility] Comment on above: Performed By: #### C BC #### [facility] [address] [place] [address] Dr. Cipriano Patton Neutrophils/100 WBC (Bld) 52.7 % Normal 43.0-75.0 [facility] Comment on above: Performed By: #### C BC #### [facility] [address] [place] [address] Dr. Cipriano Patton Platelet mean volume (Bld) [Entitic vol] 9.0 fL Critically low 9.5-13.5 [facility] Comment on above: Performed By: #### C BC #### [facility] [address] [place] [address] Dr. Cipriano Patton PLT 211 103/ul Normal 150-450 [facility] Comment on above: Performed By: #### C BC #### [facility] [address] [place] [address] Dr. Cipriano Patton RBC 4.66 106/ul Critically low 4.70-6.10 [facility] Comment on above: Performed By: #### C BC #### [facility] [address] [place] [address] Dr. Cipriano Patton WBC 5.5 103/ul Normal 4.0-11.0 [facility] Comment on above: Performed By: #### C BC #### [facility] [address] [place] [address] Dr. Cipriano Patton PROF CHEM 8 (BAS METB)on Anion gap [Moles/Vol] 10.7 mmol/L Normal [facility] Comment on above: Performed By: #### B MP #### [facility] [address] [address] [address] Cipriano Patton Calcium [Mass/Vol] 8.5 mg/dL Normal 8.5-10.[address] [facility] Comment on above: Performed By: #### B MP #### [facility] [address] [place] [address] Dr. Cipriano Patton Chloride [Moles/Vol] 105 mmol/L Normal 98-107 [facility] Comment on above: Performed By: #### B MP #### [facility] [address] [place] [address] Dr. Cipriano Patton CO2 [Moles/Vol] 29.4 mmol/L Normal 21.0-32.0 [facility] Comment on above: Performed By: #### B MP #### [facility] [address] [place] [address] Dr. Cipriano Patton Creatinine [Mass/Vol] 0.90 mg/dL Normal 0.70-1.30 [facility] Comment on above: Performed By: #### B MP #### [facility] [address] [place] [address] Dr. Cipriano Patton EGFR-AF NIUEAN >60 Normal >=60 [facility] Comment on above: Performed By: #### B MP #### [facility] [address] [place] [address] Dr. Cipriano Patton EGFR-NON AF NIUEAN >60 Normal >=60 [facility] Comment on above: Performed By: #### B MP #### [facility] [address] [place] [address] Dr. Cipriano Patton Glucose [Mass/Vol] 82 mg/dL Normal 74-[address] [facility] Comment on above: Performed By: #### B MP #### [facility] [address] [place] [address] Dr. Cipriano Patton Potassium [Moles/Vol] 4.1 mmol/L Normal 3.5-5.1 [facility] Comment on above: Performed By: #### B MP #### [facility] [address] [place] [address] Dr. Cipriano Patton Sodium [Moles/Vol] 141 mmol/L Normal 136-145 [facility] Comment on above: Performed By: #### B MP #### [facility] [address] [address] [address] Cipriano Patton Urea nitrogen [Mass/Vol] 16.0 mg/dL Normal 7.0-18.0 [facility] Comment on above: Performed By: #### B MP #### [facility] [id number] Cipriano Patton Urea nitrogen/Creatinine [Mass ratio] 17.8 mg/mg Normal [facility] Comment on above: Performed By: #### B MP #### [facility] [address] [address] [address] Cipriano Patton [facility] SARS-CoV-2 (COVID-19) RNA CAIT+probe Ql (Unsp spec) Detected Critically abnormal NOT DETECTED [facility] Comment on above: Result Comment: This test is not yet approved or cleared by the [place] FDA. When there are no FDA-approved or cleared tests available, and other criteria are met, FDA can make tests available under an emergency access mechanism called an Emergency Use Authorization (EUA). The EUA for this test is supported by the [place] Regulator of Health and Human Service's (HHS's) declaration [...] longer be used). Performed By: #### C VDTB #### [facility] [id number] Cipriano Patton VC COMP CONSULTATIONon 03-28 VC COMP CONSULTATION Patient: KENNEDY KONG Exam Date: 03/28/2022 : 1935 Gender:M Ordering : DR NESTOR ESTRELLA DTiburcio Admission #: [id number] Family : Order #: [id number] CLICK HERE TO VIEW EXAM RADIOLOGY REPORT [...] hours. The patient is a wolff in [facility]. The patient denies any signs [...] Vee MD on 03/28/2022 at 10:14 Normal [facility] VC VENOUS REFLUX ROBERTO LMTon 0 03-28-2022 VC VENOUS REFLUX ROBERTO LMT Patient: KENNEDY KONG Exam Date: 03/28/2022 : 1935 Gender:M Ordering : DR NESTOR ESTRELLA D.O. Admission #: [id number] Family : Order #: [id number] CLICK HERE TO VIEW EXAM RADIOLOGY REPORT [...] compression in area of thrombus Flow: Normal Lock Setter: Dist/med calf 2.2mm, 0.7s reflux; mid/med calf [...] or chronic thrombus Compressibility: Normal Flow: Normal Lock Setter: Mid/med 2.6mm, no reflux; dist/med 3.3mm, no reflux Tech Note: Patent varicose vein prox/med 2.3mm, without reflux. Varicose vein mid/ant 2.7mm, without reflux. Hypoechoic avascular structure lt pop fossa that measures 3.1 x 4.2 x 0.9 cm CONCLUSION: 1. 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 Small bilateral incompetent varicose veins 3. 4.2 cm left popliteal cyst Dictated by: Aubrey Vee MD on 03/28/2022 at 09:23 Approved by: Aubrey Vee MD on 03/28/2022 at 09:26 Normal [facility] US MILADIS DOP LEG LTon 02-07- 22 US MILADIS DOP LEG LT EXAM: US MILAIDS DOP LEG LT HISTORY: Left leg edema for 6 months on and off. COMPARISON: None. TECHNIQUE: Grayscale, color flow and duplex imaging is performed to the left lower extremity FINDINGS: The visualized left lower extremity venous systems exhibit normal flow, phasicity, augmentation, compressibility and waveforms. IMPRESSION: No visualized venous thrombus Electronically authenticated by: AUBREY CHEUNG Date: 2022-02-07 17:34 Normal [facility] ANES Lisa 11-04-2019 ANES POST HNO ID: [id number] Author: Luigi Snyder Service: Anesthesiology Author Type: [...] 04, 2019 TIME: 3:21 PM PAGER/CONTACT #: [phone] [facility] ANES PREOPon 11-04-2019 ANES PREOP HNO ID: [id number] Author: Seymour Buenrostro Service: Anesthesiology Author Type: Anesthesiologist Type: Anesthesia PreOp Filed: 11/04/2019 2:13 PM Note Text: REGIONAL ANESTHESIOLOGY DAY OF SURGERY NOTE PATIENT NAME: Kennedy Kong : 1935 Procedure(s) (LRB): COLONOSCOPY, FLEXIBLE W/ TRANSENDOSCOPIC BALLOON DILATION (N/A) Surgeon(s): Avel Heath Estimated body mass index is 24.39 kg/m? [...] ASA Monitors Pain Management Plan: ROOT Protocol [facility] Chart Review ACTIVE PROBLEM LIST Colonic [...] mouth once daily. Inpatient medications reviewed in [facility]. I have interviewed and examined the [...] 04, 2019 TIME: 2:13 PM PAGER/CONTACT #: [phone] Normal [facility] HISTORY PHYSICALon 0 HISTORY PHYSICAL HNO ID: [id number] Author: Avel Heath Service: Colorectal Author Type: Physician Type: HANDP [...] balloon dilation SEDATION GOAL: Moderate SIGNATURE: Avel Heath MD PATIENT NAME: Kennedy Kong DATE: November 04, 2019 TIME: 1:08 PM PAGER: [facility] PT EDon 11-04-2019 PT ED HNO ID: [id number] Author: Elizabeth Patel RN Service: Nursing Author [...] None Electronically Signed By: Elizabeth Patel RN [facility] PT ED HNO ID: [id number] Author: Harini Yusuf RN Service: ? Author [...] None Electronically Signed By: Harini Yusuf RN [facility] NURSING PROGon 10-08-2019 NURSING PROG HNO ID: [id number] Author: Nathaly (Rn) JUSTIN Kraft Service: Nursing [...] Kraft RN October 08, 2019 8:45 AM [facility] HOSPon 09-24-2019 HOSP Patient:Dustin Kong [...] notes entered within the past 30 days [facility] ABDOMEN 1 VWon 03-31-2019 ABDOMEN 1 [facility] Department of Radiology [address] [place] [id number] Patient Name: KENNEDY KONG : 1935 [...] documentation Electronically signed by:Kaleb Perry. Transcribed by: [email or web address], User Resident: Electronically Signed by: KALEB PERRY @ 03/31/2019 12:59 PM Normal [facility] Comment on above: Order Comment: , ROMELIA S IS FOR A COLONOSCOPY FOR STRICTURE , Appointment Date: 03/31/2019 , Appointment Time: 8:30AM , THIS IS FOR A COLONOSCOPY FOR STRICTURE , Appointment Date: 03/31/2019 , Appointment Time: 8:30AM , , , Ordering Provider - MARILEE JIMÉNEZ , Vital Signs Date Time Vital Sign Value Performing Clinician Facility 03-25-2024 13:140400 Body height 178.4 cm Darryl Chaparro MD Work Phone: [facility] 03-25-2024 13:14-0400 Body mass index (BMI) [Ratio] 26.24 kg/m2 Darryl Chaparro MD Work Phone: [facility] 03-25-2024 13:14-0400 Body temperature 97.2 [degF] Darryl Chaparro MD Work Phone: [facility] 03-25-2024 13:14-0400 Body weight 83.5 kg Darryl Chaparro MD Work Phone: [facility] 03-25-2024 13:14-0400 Diastolic blood pressure 65 mm[Hg] Darryl Chaparro MD Work Phone: [facility] 03-25-2024 13:14-0400 Heart rate 70 /min Darryl Chaparro MD Work Phone: [facility] 03-25-2024 13:14-0400 Respiratory rate 16 /min Darryl Chaparro MD Work Phone: [facility] 03-25-2024 13:14-0400 SaO2% (BldA) [Mass fraction] 96 % Darryl Chaparro MD Work Phone: [facility] 03-25-2024 13:14-0400 Systolic blood pressure 113 mm[Hg] Darryl Chaparro MD Work Phone: [facility] 03-19-2024 08:41-0400 Body height 180.34 cm [facility] 03-19-2024 08:41-0400 Body mass index (BMI) [Ratio] 25.4 kg/m2 [facility] 03-19-2024 08:41-0400 Body weight 82.72 kg [facility] 03-19-2024 08:41-0400 Diastolic blood pressure 60 mm[Hg] [facility] 03-19-2024 08:41-0400 Heart rate 81 /min [facility] 03-19-2024 08:41-0400 Respiratory rate 12 /min [facility] 03-19-2024 08:41-0400 Systolic blood pressure 95 mm[Hg] [facility] 03-02-2024 08:46-0400 Body mass index (BMI) [Ratio] 26.46 kg/m2 DARNELL Grajeda MD Work Phone: [facility] 03-02-2024 08:46-0400 Body temperature 97.7 [degF] DARNELL Grajeda MD Work Phone: [facility] 03-02-2024 08:46-0400 Body weight 84.2 kg DARNELL Grajeda MD Work Phone: [facility] 03-02-2024 08:46-0400 Diastolic blood pressure 74 mm[Hg] DARNELL Grajead MD Work Phone: [facility] 03-02-2024 08:46-0400 Heart rate 63 /min DARNELL Grajeda MD Work Phone: [facility] 03-02-2024 08:46-0400 Respiratory rate 16 /min DARNELL Grajeda MD Work Phone: [facility] 03-02-2024 08:46-0400 SaO2% (BldA) [Mass fraction] 99 % DARNELL Grajeda MD Work Phone: [facility] 03-02-2024 08:46-0400 Systolic blood pressure 132 mm[Hg] DARNELL Grajeda MD Work Phone: [facility] 02-26-2024 09:55-0400 Body height 178.4 cm Darryl Chaparro MD Work Phone: [facility] 02-26-2024 09:55-0400 Body mass index (BMI) [Ratio] 26.42 kg/m2 Darryl Chaparro MD Work Phone: [facility] 02-26-2024 09:55-0400 Body temperature 97.81 [degF] Darryl Chaparro MD Work Phone: [facility] 02-26-2024 09:55-0400 Body weight 84.1 kg aDrryl Chaparro MD Work Phone: [facility] 02-26-2024 09:55-0400 Diastolic blood pressure 61 mm[Hg] Darryl Chaparro MD Work Phone: [facility] 02-26-2024 09:55-0400 Heart rate 70 /min Darryl Chaparro MD Work Phone: [facility] 02-26-2024 09:55-0400 Respiratory rate 16 /min Darryl Chaparro MD Work Phone: [facility] 02-26-2024 09:55-0400 SaO2% (BldA) [Mass fraction] 98 % Darryl Chaparro MD Work Phone: [facility] 02-26-2024 09:55-0400 Systolic blood pressure 108 mm[Hg] Darryl Chaparro MD Work Phone: [facility] 02-24-2024 09:38-0400 Body mass index (BMI) [Ratio] 26.68 kg/m2 DARNELL Grajeda MD Work Phone: [facility] 02-24-2024 09:38-0400 Body temperature 97.3 [degF] DARNELL Grajeda MD Work Phone: [facility] 02-24-2024 09:38-0400 Body weight 84.9 kg DARNELL Grajeda MD Work Phone: [facility] 02-24-2024 09:38-0400 Diastolic blood pressure 75 mm[Hg] DARNELL Grajeda MD Work Phone: [facility] 02-24-2024 09:38-0400 Heart rate 69 /min DARNELL Grajeda MD Work Phone: [facility] 02-24-2024 09:38-0400 Respiratory rate 16 /min DARNELL Grajeda MD Work Phone: [facility] 02-24-2024 09:38-0400 SaO2% (BldA) [Mass fraction] 99 % DARNELL Grajeda MD Work Phone: [facility] 02-24-2024 09:38-0400 Systolic blood pressure 147 mm[Hg] DARNELL Grajeda MD Work Phone: [facility] 02-21-2024 09:39-0400 Body temperature 97.5 [degF] [facility] Work Phone: [facility] 02-21-2024 09:39-0400 Diastolic blood pressure 84 mm[Hg] [facility] Work Phone: [facility] 02-21-2024 09:39-0400 Heart rate 56 /min [facility] Work Phone: [facility] 02-21-2024 09:39-0400 Respiratory rate 18 /min [facility] Work Phone: [facility] 02-21-2024 09:39-0400 SaO2% (BldA) [Mass fraction] 98 % [facility] Work Phone: [facility] 02-21-2024 09:39-0400 Systolic blood pressure 167 mm[Hg] [facility] Work Phone: [facility] 02-21-2024 09:36-0400 Body temperature 97.5 [degF] Darryl Chaparro MD Work Phone: [facility] 02-21-2024 09:36-0400 Diastolic blood pressure 84 mm[Hg] Darryl Chaparro MD Work Phone: [facility] 02-21-2024 09:36-0400 Heart rate 56 /min Darryl Chaparro MD Work Phone: [facility] 02-21-2024 09:36-0400 Respiratory rate 18 /min Darryl Chaparro MD Work Phone: [facility] 02-21-2024 09:36-0400 SaO2% (BldA) [Mass fraction] 98 % Darryl Chaparro MD Work Phone: [facility] 02-21-2024 09:36-0400 Systolic blood pressure 167 mm[Hg] Darryl Chaparro MD Work Phone: [facility] 02-19-2024 09:40-0400 Body temperature 98.01 [degF] Chair Rypos Work Phone: [facility] 02-19-2024 09:40-0400 Diastolic blood pressure 69 mm[Hg] Chair [place] Work Phone: [facility] 02-19-2024 09:40-0400 Heart rate 63 /min [facility] [place] Work Phone: [facility] 02-19-2024 09:40-0400 Respiratory rate 18 /min Chair [place] Work Phone: [facility] 02-19-2024 09:40-0400 SaO2% (BldA) [Mass fraction] 98 % Chair [place] Work Phone: [facility] 02-19-2024 09:40-0400 Systolic blood pressure 123 mm[Hg] Chair Tanner Work Phone: [facility] 02-19-2024 09:33-0400 Body height 178.4 cm Chair Rypos Work Phone: [facility] Comment on above: previously verified. 02-19-2024 09:33-0400 Body mass index (BMI) [Ratio] 26.33 kg/m2 Chair [place] Work Phone: [facility] 02-19-2024 09:33-0400 Body weight 83.8 kg Chair Tanner Work Phone: [facility] Comment on above: with boots on 02-17-2024 09:32-0400 Body mass index (BMI) [Ratio] 26.58 kg/m2 DARNELL Grajeda MD Work Phone: [facility] 02-17-2024 09:32-0400 Body temperature 97.2 [degF] DARNELL Grajeda MD Work Phone: [facility] 02-17-2024 09:32-0400 Body weight 84.6 kg DARNELL Grajeda MD Work Phone: [facility] 02-17-2024 09:32-0400 Diastolic blood pressure 67 mm[Hg] DARNELL Grajeda MD Work Phone: [facility] 02-17-2024 09:32-0400 Heart rate 66 /min DARNELL Grajeda MD Work Phone: [facility] 02-17-2024 09:32-0400 Respiratory rate 16 /min DARNELL Grajeda MD Work Phone: [facility] 02-17-2024 09:32-0400 SaO2% (BldA) [Mass fraction] 99 % DARNELL Grajeda MD Work Phone: [facility] 02-17-2024 09:32-0400 Systolic blood pressure 136 mm[Hg] DARNELL Grajeda MD Work Phone: [facility] 02-12-2024 14:30-0400 Diastolic blood pressure 65 mm[Hg] Chair Tanner Work Phone: [facility] 02-12-2024 14:30-0400 Systolic blood pressure 123 mm[Hg] Chair [place] Work Phone: [facility] 02-12-2024 09:46-0400 Body height 178.4 cm Darryl Chaparro MD Work Phone: [facility] 02-12-2024 09:46-0400 Body mass index (BMI) [Ratio] 26.49 kg/m2 Darryl Chaparro MD Work Phone: [facility] 02-12-2024 09:46-0400 Body temperature 97.3 [degF] Darryl Chaparro MD Work Phone: [facility] 02-12-2024 09:46-0400 Body weight 84.3 kg Darryl Chaparro MD Work Phone: [facility] 02-12-2024 09:46-0400 Diastolic blood pressure 66 mm[Hg] Darryl Chaparro MD Work Phone: [facility] 02-12-2024 09:46-0400 Heart rate 71 /min Darryl Chaparro MD Work Phone: [facility] 02-12-2024 09:46-0400 Respiratory rate 16 /min Darryl Chaparro MD Work Phone: [facility] 02-12-2024 09:46-0400 SaO2% (BldA) [Mass fraction] 99 % Darryl Chaparro MD Work Phone: [facility] 02-12-2024 09:46-0400 Systolic blood pressure 127 mm[Hg] Darryl Chaparro MD Work Phone: [facility] 02-10-2024 09:50-0400 Body mass index (BMI) [Ratio] 27.05 kg/m2 DARNELL Grajeda MD Work Phone: [facility] 02-10-2024 09:50-0400 Body temperature 96.91 [degF] DARNELL Grajeda MD Work Phone: [facility] 02-10-2024 09:50-0400 Body weight 86.09 kg DARNELL Grajeda MD Work Phone: [facility] 02-10-2024 09:50-0400 Diastolic blood pressure 60 mm[Hg] DARNELL Grajeda MD Work Phone: [facility] 02-10-2024 09:50-0400 Heart rate 68 /min DARNELL Grajeda MD Work Phone: [facility] 02-10-2024 09:50-0400 Respiratory rate 18 /min DARNELL Grajeda MD Work Phone: [facility] 02-10-2024 09:50-0400 Systolic blood pressure 120 mm[Hg] DARNELL Grajeda MD Work Phone: [facility] 02-06-2024 09:00-0400 Body temperature 97.7 [degF] Chair [place] Work Phone: [facility] 02-06-2024 09:00-0400 Diastolic blood pressure 72 mm[Hg] Chair Tanner Work Phone: [facility] 02-06-2024 09:00-0400 Heart rate 70 /min Chair [place] Work Phone: [facility] 02-06-2024 09:00-0400 Respiratory rate 18 /min Chair [place] Work Phone: [facility] 02-06-2024 09:00-0400 SaO2% (BldA) [Mass fraction] 99 % Chair [place] Work Phone: [facility] 02-06-2024 09:00-0400 Systolic blood pressure 126 mm[Hg] Chair [place] Work Phone: [facility] 02-05-2024 09:08-0400 Body height 178.4 cm Shalonda Chery APRN.ELECTRIC MOTOR REPAIRING SUPERVISOR Work Phone: [facility] 02-05-2024 09:08-0400 Body temperature 97.2 [degF] Shalonda Chery APRN.ELECTRIC MOTOR REPAIRING SUPERVISOR Work Phone: [facility] 02-05-2024 09:08-0400 Body weight 84.1 kg Shalonda Chery APRN.ELECTRIC MOTOR REPAIRING SUPERVISOR Work Phone: [facility] 02-05-2024 09:08-0400 Diastolic blood pressure 54 mm[Hg] Shalonda Chery APRN.ELECTRIC MOTOR REPAIRING SUPERVISOR Work Phone: [facility] 02-05-2024 09:08-0400 Heart rate 63 /min Shalonda Chery WO[employer]EN SH[employer] 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 Phone: [facility] 02-05-2024 09:08-0400 Respiratory rate 16 /min Shalonda Chery WO[employer] SH[employer] 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 Phone: [facility] 02-05-2024 09:08-0400 SaO2% (BldA) [Mass fraction] 98 % Shalonda Chery WO[employer] SH[employer] 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 Phone: [facility] 02-05-2024 09:08-0400 Systolic blood pressure 121 mm[Hg] Shalonda Chery [employer] SH[employer] 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 Phone: [facility] 01-28-2024 08:33-0400 Body height 178.4 cm Jasmine Nicky PA-C Work Phone: [facility] 01-28-2024 08:33-0400 Body temperature 97.5 [degF] Jasmine Nicky PA-C Work Phone: [facility] 01-28-2024 08:33-0400 Body weight 84.4 kg Jasmine Nicky PA-C Work Phone: [facility] 01-28-2024 08:33-0400 Diastolic blood pressure 60 mm[Hg] Jasmine Nicky PA-C Work Phone: [facility] 01-28-2024 08:33-0400 Heart rate 75 /min Jasmine Nicky PA-C Work Phone: [facility] 01-28-2024 08:33-0400 Respiratory rate 16 /min Jasmine Nicky PA-C Work Phone: [facility] 01-28-2024 08:33-0400 SaO2% (BldA) [Mass fraction] 98 % Jasmine Nicky PA-C Work Phone: [facility] 01-28-2024 08:33-0400 Systolic blood pressure 112 mm[Hg] Jasmine Nicky PA-C Work Phone: [facility] 01-20-2024 13:08-0400 Diastolic blood pressure 85 mm[Hg] Chair [place] Work Phone: [facility] 01-20-2024 13:08-0400 Systolic blood pressure 136 mm[Hg] Chair [place] Work Phone: [facility] 01-20-2024 09:00-0400 Body height 178.4 cm Chair [place] Work Phone: [facility] 01-20-2024 08:59-0400 Body height 177.8 cm Shalonda Chery APRN.ELECTRIC MOTOR REPAIRING SUPERVISOR Work Phone: [facility] 01-20-2024 08:59-0400 Body temperature 97.81 [degF] Shalonda Chery APRN.ELECTRIC MOTOR REPAIRING SUPERVISOR Work Phone: [facility] 01-20-2024 08:59-0400 Body weight 84.7 kg Chair Tanner Work Phone: [facility] 01-20-2024 08:59-0400 Diastolic blood pressure 50 mm[Hg] Shalonda Chery APRN.ELECTRIC MOTOR REPAIRING SUPERVISOR Work Phone: [facility] 01-20-2024 08:59-0400 Heart rate 69 /min Shalonda Chery APRN.ELECTRIC MOTOR REPAIRING SUPERVISOR Work Phone: [facility] 01-20-2024 08:59-0400 Respiratory rate 16 /min Shalonda Chery APRN.ELECTRIC MOTOR REPAIRING SUPERVISOR Work Phone: [facility] 01-20-2024 08:59-0400 SaO2% (BldA) [Mass fraction] 98 % Shalonda Chery APRN.ELECTRIC MOTOR REPAIRING SUPERVISOR Work Phone: [facility] 01-20-2024 08:59-0400 Systolic blood pressure 100 mm[Hg] Shalonda Chery APRN.ELECTRIC MOTOR REPAIRING SUPERVISOR Work Phone: [facility] 01-03-2024 11:19-0400 Body height 177.8 cm Darryl Chaparro MD Work Phone: [facility] 01-03-2024 11:19-0400 Body temperature 97.39 [degF] Darryl Chaparro MD Work Phone: [facility] 01-03-2024 11:19-0400 Body weight 83.8 kg Darryl Chaparro MD Work Phone: [facility] 01-03-2024 11:19-0400 Diastolic blood pressure 67 mm[Hg] Darryl Chaparro MD Work Phone: [facility] 01-03-2024 11:19-0400 Heart rate 56 /min Darryl Chaparro MD Work Phone: [facility] 01-03-2024 11:19-0400 Respiratory rate 16 /min Darryl Chaparro MD Work Phone: [facility] 01-03-2024 11:19-0400 SaO2% (BldA) [Mass fraction] 99 % Darryl Chaparro MD Work Phone: [facility] 01-03-2024 11:19-0400 Systolic blood pressure 132 mm[Hg] Darryl Chaparro MD Work Phone: [facility] 12-31-2023 09:02-0400 Body temperature 97.39 [degF] DARNELL Grajeda MD Work Phone: [facility] 12-31-2023 09:02-0400 Body weight 84.82 kg DARNELL Grajeda MD Work Phone: [facility] 12-31-2023 09:02-0400 Diastolic blood pressure 80 mm[Hg] DARNELL Grajeda MD Work Phone: [facility] 12-31-2023 09:02-0400 Heart rate 57 /min DARNELL Grajeda MD Work Phone: [facility] 12-31-2023 09:02-0400 Respiratory rate 16 /min DARNELL Grajeda MD Work Phone: [facility] 12-31-2023 09:02-0400 SaO2% (BldA) [Mass fraction] 100 % DARNELL Grajeda MD Work Phone: [facility] 12-31-2023 09:02-0400 Systolic blood pressure 134 mm[Hg] DARNELL Grajeda MD Work Phone: [facility] 12-05-2023 14:30-0500 Diastolic blood pressure 78 mm[Hg] Kyliezak DIETRICH [facility] 12-05-2023 14:30-0500 Heart rate 80 /min Kyliezak DIETRICH [facility] 12-05-2023 14:30-0500 Respiratory rate 12 /min Kyliezak DIETRICH [facility] 12-05-2023 14:30-0500 SaO2% (BldA) [Mass fraction] 96 % Kyliezak DIETRICH [facility] 12-05-2023 14:30-0500 Systolic blood pressure 148 mm[Hg] Kylie DIETR[facility] 12-05-2023 13:21-0500 Heart rate 73 /min Kyliezak DI[facility] 12-05-2023 13:21-0500 SaO2% (BldA) [Mass fraction] 95 % Kyliezak DIETR[facility] 12-05-2023 13:21-0500 Diastolic blood pressure 80 mm[Hg] Kylie DI[facility] 12-05-2023 13:21-0500 Mean blood pressure 104 mm[Hg] Kylie DI[facility] 12-05-2023 13:21-0500 Systolic blood pressure 151 mm[Hg] Kylie [facility] 12-05-2023 13:15-0500 Body temperature 97.52 [degF] Kylie [facility] 12-05-2023 13:15-0500 Diastolic blood pressure 99 mm[Hg] Kyliezak DIETRICH [facility] 12-05-2023 13:15-0500 Heart rate 73 /min Kyliezak [facility] 12-05-2023 13:15-0500 Mean blood pressure 104 mm[Hg] Kyliezak DI[facility] 12-05-2023 13:15-0500 Respiratory rate 9 /min Kyliezak [facility] 12-05-2023 13:15-0500 SaO2% (BldA) [Mass fraction] 97 % Kyliezak [facility] 12-05-2023 13:15-0500 Systolic blood pressure 114 mm[Hg] Kyliezak DIETRICH [facility] 12-05-2023 13:00-0500 Mean blood pressure 84 mm[Hg] Kyliezak DI[facility] 12-05-2023 12:55-0500 Mean blood pressure 86 mm[Hg] Kyliezak [facility] 12-05-2023 12:47-0500 Body temperature 97.34 [degF] Kyliezak [facility] 12-05-2023 12:40-0500 Respiratory rate 10 /min Kyliezak DIETR[facility] 12-05-2023 12:35-0500 Respiratory rate 10 /min Kylie [facility] 12-05-2023 12:30-0500 Respiratory rate 10 /min Kylie [facility] 12-05-2023 10:26-0500 Mean blood pressure 96 mm[Hg] Kyliezak DIETR[facility] 12-05-2023 10:26-0500 Body temperature 97.88 [degF] Kylie [facility] 11-20-2023 09:11-0500 Body height 180.3 cm Adriel Morgan DO Work Phone: [facility] 11-20-2023 09:11-0500 Body mass index (BMI) [Ratio] 25.94 kg/m2 Adriel Morgan DO Work Phone: [facility] 11-20-2023 09:11-0500 Body weight 84.37 kg Adriel Morgan DO Work Phone: [facility] 11-20-2023 09:11-0500 Diastolic blood pressure 60 mm[Hg] Adriel Morgan DO Work Phone: [facility] 11-20-2023 09:11-0500 Heart rate 66 /min Adriel Morgan DO Work Phone: [facility] 11-20-2023 09:11-0500 Systolic blood pressure 114 mm[Hg] Adriel Morgan DO Work Phone: [facility] 11-07-2023 08:30-0500 Body height 180.34 cm Nestor Ball Other [facility] 11-07-2023 08:30-0500 Body mass index (BMI) [Ratio] 25.33 kg/m2 Nestor Ball Other [facility] [place] Other 11-07-2023 08:30-0500 Body weight 82.37 kg Nestor Ball Other [facility] 11-07-2023 08:30-0500 Diastolic blood pressure 73 mm[Hg] Nestor Ball Other [facility] 11-07-2023 08:30-0500 Respiratory rate 12 /min Nestor Ball Other [facility] [place] Other 11-07-2023 08:30-0500 Systolic blood pressure 113 mm[Hg] Nestor Ball Other [facility] 10-10-2023 16:00-0500 Body temperature 98.1 [degF] Josafat Sun MD Work Phone: [facility] 10-10-2023 16:00-0500 Diastolic blood pressure 76 mm[Hg] Josafat Sun MD Work Phone: [facility] 10-10-2023 16:00-0500 Heart rate 68 /min Josafat Sun MD Work Phone: [facility] 10-10-2023 16:00-0500 Respiratory rate 17 /min Josafat Sun MD Work Phone: [facility] 10-10-2023 16:00-0500 SaO2% (BldA) [Mass fraction] 99 % Josafat Sun MD Work Phone: [facility] 10-10-2023 16:00-0500 Systolic blood pressure 149 mm[Hg] Josafat Sun MD Work Phone: [facility] 10-09-2023 22:34-0500 Body height 177.8 cm Josafat Sun MD Work Phone: [facility] 10-07-2023 14:30-0500 Body height 180.34 cm Imad Asaad Other [place] Other 10-07-2023 14:30-0500 Body mass index (BMI) [Ratio] 25.24 kg/m2 Imad Asaad Other [place] Other 10-07-2023 14:30-0500 Body weight 82.1 kg Imad Asaad Other [place] Other 10-07-2023 14:30-0500 Diastolic blood pressure 63 mm[Hg] Imad Asaad Other [place] Other 10-07-2023 14:30-0500 Systolic blood pressure 139 mm[Hg] Imad Asaad Other [place] Other 10-04-2023 08:45-0500 Body height 180.34 cm Nestor Ball Other [place] Other 10-04-2023 08:45-0500 Body mass index (BMI) [Ratio] 25.35 kg/m2 Nestor Ball Other [facility] Other 10-04-2023 08:45-0500 Body weight 82.46 kg Nestor Ball Other [facility] Other 10-04-2023 08:45-0500 Diastolic blood pressure 65 mm[Hg] Nestor Ball Other [place] Other 10-04-2023 08:45-0500 Respiratory rate 12 /min Nestor Ball Other [place] Other 10-04-2023 08:45-0500 Systolic blood pressure 133 mm[Hg] Nestor Ball Other [facility] Other 09-04-2023 08:45-0500 Body height 180.34 cm Nesotr Ball Other [place] Other 09-04-2023 08:45-0500 Body mass index (BMI) [Ratio] 26.11 kg/m2 Nestor Ball Other [place] Other 09-04-2023 08:45-0500 Body weight 84.91 kg Nestor Ball Other [place] Other 09-04-2023 08:45-0500 Diastolic blood pressure 71 mm[Hg] Nestor Ball Other [place] Other 09-04-2023 08:45-0500 Respiratory rate 12 /min Nestor Ball Other [place] Other 09-04-2023 08:45-0500 Systolic blood pressure 116 mm[Hg] Nestor Ball Other [place] Other 08-21-2023 09:30-0400 Body height 180.34 cm Nestor Ball Other [place] Other 08-21-2023 09:30-0400 Body mass index (BMI) [Ratio] 25.46 kg/m2 Nestor Ball Other [place] Other 08-21-2023 09:30-0400 Body weight 82.83 kg Nestor Ball Other [place] Other 08-21-2023 09:30-0400 Diastolic blood pressure 61 mm[Hg] Nestor Ball Other [place] Other 08-21-2023 09:30-0400 Respiratory rate 12 /min Nestor Ball Other [place] Other 08-21-2023 09:30-0400 Systolic blood pressure 115 mm[Hg] Nestor Ball Other [place] Other 08-02-2023 09:45-0400 Body height 180.34 cm Nestor Ball Other [place] Other 08-02-2023 09:45-0400 Body mass index (BMI) [Ratio] 25.86 kg/m2 Nestor Ball Other [place] Other 08-02-2023 09:45-0400 Body weight 84.1 kg Nestor Ball Other [place] Other 08-02-2023 09:45-0400 Diastolic blood pressure 64 mm[Hg] Nestor Ball Other [place] Other 08-02-2023 09:45-0400 Respiratory rate 12 /min Nestor Ball Other [place] Other 08-02-2023 09:45-0400 SaO2% (BldA) [Mass fraction] 96 % Nestor Ball Other [place] Other 08-02-2023 09:45-0400 Systolic blood pressure 119 mm[Hg] Nestor Ball Other [place] Other 07-08-2023 08:30-0400 Body height 180.34 cm Nestor Ball Other [place] Other 07-08-2023 08:30-0400 Body mass index (BMI) [Ratio] 26.02 kg/m2 Nestor Ball Other [place] Other 07-08-2023 08:30-0400 Body weight 84.64 kg Nestor Ball Other [place] Other 07-08-2023 08:30-0400 Diastolic blood pressure 78 mm[Hg] Nestor Ball Other [place] Other 07-08-2023 08:30-0400 Respiratory rate 12 /min Nestor Ball Other [place] Other 07-08-2023 08:30-0400 Systolic blood pressure 135 mm[Hg] Nestor Ball Other [facility] Other 06-07-2023 14:15-0400 Body height 180.34 cm Nestor Ball Other [facility] Other 06-07-2023 14:15-0400 Body mass index (BMI) [Ratio] 26.72 kg/m2 Nestor Ball Other [facility] Other 06-07-2023 14:15-0400 Body weight 86.91 kg Nestor Ball Other [facility] Other 06-07-2023 14:15-0400 Diastolic blood pressure 71 mm[Hg] Nestor Ball Other [place] Other 06-07-2023 14:15-0400 Respiratory rate 12 /min Nestor Ball Other [place] Other 06-07-2023 14:15-0400 Systolic blood pressure 121 mm[Hg] Nestor Ball Other [place] Other 05-02-2023 11:57-0400 Body height 177.8 cm Nestor E Ball Work Phone: [employer] DO Work Phone: 05-02-2023 11:57-0400 Body mass index (BMI) [Ratio] 26.54 kg/m2 Nestor E Ball Work Phone: [employer] DO Work Phone: 05-02-2023 11:57-0400 Body surface area Derived from formula 2.02 m2 Nestor E Ball Work Phone: [employer] DO Work Phone: 05-02-2023 11:57-0400 Body weight 83.92 kg Nestor E Ball Work Phone: [facility] 250 DO Work Phone: 05-02-2023 11:57-0400 Diastolic blood pressure 60 mm[Hg] Nestor E Ball Work Phone: [facility] [facility] DO Work Phone: 05-02-2023 11:57-0400 Heart rate 60 /min Nestor E Ball Work Phone: [facility] [facility] DO Work Phone: 05-02-2023 11:57-0400 Systolic blood pressure 112 mm[Hg] Nestor E Ball Work Phone: [facility] [facility] DO Work Phone: 04-23-2023 08:53-0400 Body temperature 97.8 [degF] DO Nestor Ball Work Phone: [facility] 04-23-2023 08:53-0400 Diastolic blood pressure 53 mm[Hg] DO Nestor Ball Work Phone: [facility] 04-23-2023 08:53-0400 Heart rate 70 /min DO Nestor Ball Work Phone: [facility] 04-23-2023 08:53-0400 Respiratory rate 16 /min DO Nestor Ball Work Phone: [facility] 04-23-2023 08:53-0400 SaO2% (BldA) [Mass fraction] 97 % DO Nestor Ball Work Phone: [facility] 04-23-2023 08:53-0400 Systolic blood pressure 91 mm[Hg] DO Nestor Ball Work Phone: [facility] 04-23-2023 04:43-0400 Body weight 83.1 kg DO Nestor Ball Work Phone: [facility] 04-22-2023 10:44-0400 Body height 177.8 cm DO Nestor Ball Work Phone: [facility] 04-12-2023 13:15-0400 Body height 180.34 cm Nestor Ball Other [facility] Other 04-12-2023 13:15-0400 Body mass index (BMI) [Ratio] 26.41 kg/m2 Nestor Ball Other [facility] Other 04-12-2023 13:15-0400 Body weight 85.91 kg Nestor Ball Other [facility] Other 04-12-2023 13:15-0400 Diastolic blood pressure 72 mm[Hg] Nestor Ball Other [facility] Other 04-12-2023 13:15-0400 Respiratory rate 12 /min Nestor Ball Other [facility] Other 04-12-2023 13:15-0400 Systolic blood pressure 121 mm[Hg] Nestor Ball Other [facility] Other 02-06-2023 12:30-0400 Body height 180.34 cm Nestor Ball Other [facility] Other 02-06-2023 12:30-0400 Body mass index (BMI) [Ratio] 26.39 kg/m2 Nestor Ball Other [facility] Other 02-06-2023 12:30-0400 Body weight 85.82 kg Nestor Ball Other [facility] Other 02-06-2023 12:30-0400 Diastolic blood pressure 80 mm[Hg] Nestor Ball Other [facility] Other 02-06-2023 12:30-0400 Respiratory rate 12 /min Nestor Ball Other [facility] Other 02-06-2023 12:30-0400 Systolic blood pressure 132 mm[Hg] Nestor Ball Other [place] Other 01-14-2023 15:51-0400 Body height 177.8 cm Avel Heath MD Work Phone: [facility] 01-14-2023 15:51-0400 Body temperature 97.5 [degF] Avel Heath MD Work Phone: [facility] 01-14-2023 15:51-0400 Body weight 83.46 kg Avel Heath MD Work Phone: [facility] 01-14-2023 15:51-0400 Diastolic blood pressure 79 mm[Hg] Avel Heath MD Work Phone: [facility] 01-14-2023 15:51-0400 Heart rate 65 /min Avel Heath MD Work Phone: [facility] 01-14-2023 15:51-0400 SaO2% (BldA) [Mass fraction] 97 % Avel Heath MD Work Phone: [facility] 01-14-2023 15:51-0400 Systolic blood pressure 165 mm[Hg] Avel Heath MD Work Phone: [facility] 12-31-2022 11:30-0400 Body height 180.34 cm Nestor Ball Other [place] Other 12-31-2022 11:30-0400 Body mass index (BMI) [Ratio] 26.27 kg/m2 Nestor Ball Other [place] Other 12-31-2022 11:30-0400 Body weight 85.46 kg Nestor Ball Other [place] Other 12-31-2022 11:30-0400 Diastolic blood pressure 70 mm[Hg] Nestor Ball Other [place] Other 12-31-2022 11:30-0400 Respiratory rate 12 /min Nestor Estrella Other [place] Other 12-31-2022 11:30-0400 Systolic blood pressure 137 mm[Hg] Nestor Estrella Other [place] Other Encounters Encounter Date Encounter Type Care Provider Facility Start: 06-29-2024 ambulatory Kylie DIETRICH Facili ty:[id number] Start: 06-23-2024 ambulatory Kylie DIETRICH Facili ty:[facility] Start: 05-20-2024 End: 05-20-2024 ambulatory [facility] Ambulatory Start: 04-20-2024 End: 04-20-2024 ambulatory Kylie DIETRICH Facility:[facility] Start: 04-20-2024 End: 04-20-2024 Patient encounter procedure Kylie DIETRICH [facility] Start: 03-25-2024 End: 03-25-2024 Patient encounter procedure Suzanne Grajeda MD Work Phone: Radiation Oncology Comment on above: 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) Start: 03-25-2024 End: 03-25-2024 Office outpatient visit 25 minutes Darryl Chaparro MD Work Phone: Hematology/Oncology Comment on above: 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) Start: 03-25-2024 End: 03-25-2024 ambulatory NESTOR ESTRELLA Facility:[facility] Start: 03-19-2024 End: 03-19-2024 ambulatory Jana Pierre [facility] Work Phone: Start: 03-19-2024 End: 03-19-2024 Patient encounter procedure [facility] Work Phone: Start: 03-10-2024 [facility] Start: 03-04-2024 End: 03-04-2024 ambulatory Sridevi X Orzech Facility[facility] Start: 03-04-2024 End: 03-04-2024 Lab Drop off Sridevi X Orzech [facility] Start: 03-04-2024 End: 03-04-2024 ambulatory Sridevi X Orzech Facility:[facility] Start: 03-04-2024 End: 03-04-2024 Patient encounter procedure Sridevi X Orzech [facility] Start: 03-02-2024 End: 03-02-2024 Patient encounter procedure G Andry Grajeda MD Work Phone: Radiation Oncology Comment on above: 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) Start: 03-02-2024 Radiation Oncology Note G Slick Grajeda MD Work Phone: Radiation Oncology Comment on above: Completion Note Start: 03-02-2024 End: 03-02-2024 ambulatory NESTOR E BALL Facility:[facility] Start: 02-28-2024 End: 02-28-2024 ambulatory NESTOR E BALL Facility:[facility] Start: 02-27-2024 End: 02-27-2024 ambulatory NESTOR E BALL Facility:[facility] Start: 02-26-2024 End: 02-26-2024 ambulatory NESTOR E BALL Facility:[facility] Start: 02-26-2024 End: 02-26-2024 Office outpatient visit 25 minutes Darryl Chaparro MD Work Phone: Hematology/Oncology Comment on above: 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) Start: 02-26-2024 Non-patient / Non-visit [facility] Work Phone: Start: 02-26-2024 End: 02-26-2024 ambulatory NESTOR E BALL Facility:[facility] Start: 02-25-2024 End: 02-25-2024 ambulatory NESTOR ESTRELLA Facility:[facility] Start: 02-24-2024 End: 02-24-2024 Social Work Jana Pierre BENCH SHEAR OPERATOR Hematology/Oncology Comment on above: Care Coordination (U rine Culture Results) 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) Start: 02-23-2024 Orders Only Darryl restrepo MD Work Phone: Hematology/Oncology Start: 02-21-2024 Telephone encounter Darryl haley MD Work Phone: Radiation Oncology Comment on above: Edema; Dysuria; Diar jose Start: 02-21-2024 End: 02-21-2024 Patient encounter procedure Lab/Port Cherelle Hart Work Phone: Radiation Oncology Comment on above: 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) Start: 02-21-2024 End: 02-21-2024 ambulatory NESTOR ESTRELLA Facility:[facility] Start: 02-20-2024 End: 02-20-2024 ambulatory NESTOR ESTRELLA Facility:[facility] Start: 02-19-2024 Telephone encounter Radha Torres RN Hematology/Oncology Comment on above: Patient Question Start: 02-19-2024 End: 02-19-2024 ambulatory NESTOR ESTRELLA Facility:[facility] Start: 02-19-2024 End: 02-19-2024 Nursing evaluation of patient and report Paloma Rosenberg Work Phone: Hematology/Oncology Comment on above: Dysuria (Primary Dx) Start: 02-19-2024 Non-patient / Non-visit [facility] Physician [facility] Work Phone: Start: 02-19-2024 End: 02-19-2024 ambulatory Chair Erin Hart Work Phone: Hematology/Oncology Comment on above: 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); High risk medications (not anticoagulants) long-term use Start: 02-18-2024 Telephone encounter Sherron sepulveda RN Work Phone: Hematology/Oncology Comment on above: Care Coordination (C atheter Sizing) Start: 02-18-2024 End: 02-18-2024 ambulatory NESTOR ESTRELLA Facility:[facility] Start: 02-18-2024 End: 02-18-2024 Patient encounter procedure Suzanne Grajeda MD Work Phone: Radiation Oncology Comment on above: 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) Start: 02-17-2024 End: 02-17-2024 ambulatory Kylie DIETRICH Facility:[facility] Start: 02-17-2024 End: 02-17-2024 Patient encounter procedure Kylie DIETRICH [facility] Start: 02-17-2024 End: 02-17-2024 Patient encounter procedure Suzanne Grajeda MD Work Phone: Radiation Oncology Comment on above: 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); Edema leg Start: 02-17-2024 End: 02-17-2024 ambulatory NESTOR ESTRELLA Facility:[facility] Start: 02-14-2024 End: 02-14-2024 ambulatory NESTOR ESTRELLA Facility:[facility] Start: 02-13-2024 End: 02-13-2024 ambulatory NESTOR ESTRELLA Facility:[facility] Start: 02-12-2024 Telephone encounter Sherron sepulveda RN Work Phone: Hematology/Oncology Comment on above: Care Coordination (U rinary Supplies) Start: 02-12-2024 End: 02-12-2024 Office outpatient visit 25 minutes Darryl Chaparro MD Work Phone: Hematology/Oncology Comment on above: 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) Start: 02-12-2024 Non-patient / Non-visit [facility] Work Phone: Start: 02-12-2024 End: 02-13-2024 ambulatory Chair 8 York Work Phone: Hematology/Oncology Comment on above: 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) Start: 02-11-2024 End: 02-11-2024 ambulatory NESTOR E BALL Facility:[facility] Start: 02-10-2024 End: 02-10-2024 Patient encounter procedure Suzanne Grajeda MD Work Phone: Radiation Oncology Comment on above: 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) Start: 02-10-2024 End: 02-10-2024 ambulatory NESTOR E BALL Facility:[facility] Start: 02-07-2024 Telephone encounter Darryl haley MD Work Phone: Hematology/Oncology Comment on above: Orders Start: 02-07-2024 End: 02-07-2024 ambulatory NESTOR E BALL Facility:[facility] Start: 02-06-2024 End: 02-07-2024 ambulatory Chair 4 Tanner Work Phone: Hematology/Oncology Comment on above: 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) Start: 02-06-2024 End: 02-06-2024 ambulatory NESTOR E BALL Facility:[facility] Start: 02-06-2024 Non-patient / Non-visit [facility] Work Phone: Start: 02-05-2024 End: 02-05-2024 Patient encounter procedure Shalonda Chery APRN.CNP Work Phone: [facility] Start: 02-05-2024 End: 02-05-2024 ambulatory Chair 8 Tanner Work Phone: Hematology/Oncology Comment on above: 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) Start: 02-04-2024 Non-patient / Non-visit [facility] Work Phone: Start: 02-04-2024 End: 02-04-2024 Patient encounter procedure Lab/Port Radt Tanner Work Phone: Radiation Oncology Comment on above: 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) Start: 02-04-2024 End: 02-04-2024 ambulatory NESTOR ESTRELLA Facility:[facility] Start: 02-04-2024 Telephone encounter Sherron sepulveda RN Work Phone: Hematology/Oncology Comment on above: Care Coordination (L ab Results; IV Hydration) Start: 02-03-2024 End: 02-03-2024 Patient encounter procedure Suzanne Grajeda MD Work Phone: Radiation Oncology Comment on above: 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) Start: 02-03-2024 End: 02-03-2024 ambulatory NESTOR Darvin ESTRELLA Facility:[facility] Start: 01-31-2024 End: 01-31-2024 ambulatory Jana Pierre [facility] Work Phone: Start: 01-31-2024 End: 01-31-2024 Patient encounter procedure [facility] Work Phone: Start: 01-31-2024 End: 01-31-2024 ambulatory NESTOR Darvin ESTRELLA Facility:[facility] Start: 01-30-2024 End: 01-30-2024 ambulatory NESTOR ESTRELLA Facility:[facility] Start: 01-29-2024 Telephone encounter Darryl haley MD Work Phone: Hematology/Oncology Comment on above: Patient Update Start: 01-29-2024 End: 01-29-2024 ambulatory NESTOR ESTRELLA Facility:[facility] Start: 01-28-2024 End: 01-28-2024 Patient encounter procedure Suzanne Grajeda MD Work Phone: Radiation Oncology Comment on above: 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) Start: 01-28-2024 End: 01-28-2024 ambulatory Suzanne GRAJEDA Facility:[facility] Start: 01-28-2024 End: 01-28-2024 Office outpatient visit 25 minutes Jasmine Jansen PA-C Work Phone: Hematology/Oncology Comment on above: 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) Start: 01-28-2024 End: 01-29-2024 ambulatory Chair 6 Tanner Work Phone: Hematology/Oncology Comment on above: 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) Start: 01-28-2024 Non-patient / Non-visit [facility] Work Phone: Start: 01-24-2024 Telephone encounter Sherron sepulveda RN Work Phone: Hematology/Oncology Comment on above: Care Coordination (C 1D1 Post Treatment Call) Start: 01-24-2024 End: 01-24-2024 ambulatory NESTOR E SAMEER Facility:[facility] Start: 01-23-2024 End: 01-23-2024 ambulatory NESTOR E SAMEER Facility:[facility] Start: 01-22-2024 End: 01-22-2024 ambulatory NESTOR E SAMEER Facility:[facility] Start: 01-21-2024 End: 01-21-2024 ambulatory NESTOR E SAMEER Facility:[facility] Start: 01-20-2024 End: 01-20-2024 ambulatory Suzanne GRAJEDA Facility:[facility] Start: 01-20-2024 Telephone encounter Financial Navigator Maninder Work Phone: Hematology/Oncology Comment on above: Benefits Investigati on Start: 01-20-2024 End: 01-20-2024 Patient encounter procedure Suzanne Grajeda MD Work Phone: Radiation Oncology Comment on above: 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) Start: 01-20-2024 End: 01-20-2024 ambulatory Chair 9 Tanner Work Phone: Hematology/Oncology Comment on above: 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) Start: 01-20-2024 Non-patient / Non-visit [facility] Work Phone: Start: 01-17-2024 End: 01-17-2024 ambulatory NESTOR ESTRELLA Facility:[facility] Start: 01-13-2024 Telephone encounter Sherron sepulveda RN Work Phone: Hematology/Oncology Comment on above: Care Coordination (A ntiemetics) Start: 01-09-2024 Telephone encounter Suzanne Grajeda MD Work Phone: Radiation Oncology Comment on above: Future Appointment Start: 01-08-2024 End: 01-08-2024 Patient encounter procedure [facility] Provider [facility] Department Comment on above: 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) Start: 01-08-2024 Radiation Oncology Note Suzanne Grajeda MD Work Phone: Radiation Oncology Comment on above: Simulation Note Start: 01-08-2024 End: 01-08-2024 ambulatory Suzanne GRAJEDA Facility:[facility] Start: 01-08-2024 End: 01-08-2024 ambulatory Suzanne GRAJEDA Facility:[facility] Start: 01-03-2024 Non-patient / Non-visit [facility] Physician [facility] Work Phone: Start: 01-03-2024 End: 01-03-2024 ambulatory NESTOR ESTRELLA Facility:[facility] Start: 01-03-2024 End: 01-03-2024 Office outpatient new 60 minutes Darryl Chaparro MD Work Phone: Hematology/Oncology Comment on above: 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) Start: 12-31-2023 End: 12-31-2023 ambulatory Epi Razo LPN Radiation Oncology Comment on above: Patient Education Start: 12-31-2023 End: 12-31-2023 Patient encounter procedure Suzanne Grajeda MD Work Phone: Radiation Oncology Comment on above: 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) Start: 12-17-2023 Non-patient / Non-visit [facility] Phys[facility] Work Phone: Start: 12-16-2023 End: 12-16-2023 ambulatory Kylie DIETRICH Facility:[facility] Start: 12-14-2023 Non-patient / Non-visit [facility] DianDian Work Phone: Start: 12-10-2023 ambulatory Kylie Jordan ty:[facility] Start: 12-05-2023 End: 12-05-2023 Admission to same day surgery center Kylie DIETRICH [facility] Start: 12-05-2023 End: 12-05-2023 ambulatory Kylie DIETRICH Facility:[facility] Start: 12-05-2023 ambulatory yKlie Jordan ty:CD:[id number] Start: 11-22-2023 End: 11-22-2023 ambulatory Nestor Estrella Other [place] Other Start: 11-22-2023 Telephone encounter Nestor Estrella [facility] Start: 11-20-2023 End: 11-20-2023 Office outpatient visit 15 minutes Adriel Morgan DO Work Phone: [facility] Comment on above: Atherosclerosis of n ative coronary artery, unspecified whether angina present, unspecified whether cachil dehe or transplanted heart; Stented coronary artery; Non-ST elevation myocardial infarction (NSTEMI) ([facility]); Hyperlipidemia, unspecified hyperlipidemia type; History of colon cancer; Never smoked any substance; Malignant neoplasm of urinary bladder, unspecified site ([facility]/HCC) Start: 11-20-2023 End: 11-20-2023 ambulatory [facility] Start: 11-07-2023 End: 11-07-2023 ambulatory Nestor Estrella Other [place] Other Start: 11-07-2023 Office outpatient vi sit 15 minutes Nestor Estrella [facility] Start: 11-07-2023 End: 11-07-2023 Patient encounter procedure [facility]- Start: 10-28-2023 End: 10-28-2023 ambulatory Imad Asaad Other [place] Other Start: 10-28-2023 Telephone encounter Imad Asaad [facility] [employer] Start: 10-23-2023 End: 10-23-2023 ambulatory Nestor Ball Facility:[facility] Start: 10-23-2023 End: 10-23-2023 ambulatory DO Nestor Estrella Work Phone: [facility] Work Phone: Start: 10-23-2023 End: 10-23-2023 Patient encounter procedure DO Nestor Sameer Work Phone: [facility] [place] Work Phone: Start: 10-10-2023 End: 10-10-2023 Emergency department patient visit Josafat Sun MD Work Phone: [place] [facility] Start: 10-07-2023 End: 10-07-2023 ambulatory Imad Asaad Other [place] Other Start: 10-07-2023 Office outpatient ne w 45 minutes Imad Asaad [facility] Start: 10-04-2023 End: 10-04-2023 ambulatory Nestor Ball Other [place] Other Start: 10-04-2023 Office outpatient vi sit 15 minutes Nestor Ball [facility] Start: 09-04-2023 End: 09-04-2023 ambulatory Nestor Ball Other [place] Other Start: 09-04-2023 Office outpatient vi sit 15 minutes Nestor Ball [facility] Start: 09-04-2023 Telephone encounter Nestor Estrella FP [facility] Start: 08-21-2023 End: 08-21-2023 ambulatory Nestor Ball Other [place] Other Start: 08-21-2023 Office outpatient vi sit 15 minutes Nestor Ball [facility] Start: 08-21-2023 Telephone encounter Nestor Estrella FP [facility] Start: 08-09-2023 End: 08-09-2023 ambulatory Nestor Estrella Other [place] Other Start: 08-09-2023 Telephone encounter Nestor SINGH [facility] Start: 08-06-2023 End: 08-06-2023 ambulatory Nestor Estrella Other [place] Other Start: 08-06-2023 Telephone encounter Nestor SINGH [facility] Start: 08-02-2023 End: 08-02-2023 ambulatory Nestor Estrella Other [place] Other Start: 08-02-2023 Office outpatient vi sit 15 minutes Nestor Estrella [facility] Start: 07-31-2023 End: 07-31-2023 ambulatory Nestor Estrella Other [place] Other Start: 07-31-2023 Telephone encounter Nestor Estrella FP [facility] Start: 07-10-2023 End: 07-10-2023 ambulatory Nestor Estrella Other [place] Other Start: 07-10-2023 Telephone encounter Nestor Estrella FP [facility] Start: 07-08-2023 Chart Update Nestor soriano Work Phone: [facility] 250 DO Work Phone: Start: 07-08-2023 End: 07-08-2023 ambulatory Nestor Estrella Other [place] Other Start: 07-08-2023 Patient encounter procedure Nestor Estrella [facility] Start: 07-08-2023 Telephone encounter Nestor Estrella FP [facility] Start: 06-25-[address] Adriel fiore [place] Facility:[id number] Start: 06-17-2023 ambulatory Kylie Jordan ty:[facility] Start: 06-12-2023 ambulatory Kylie Jordan ty:[facility] Start: 06-07-2023 End: 06-07-2023 ambulatory Nestor Estrella Other [facility] [place] Other Start: 06-07-2023 Office outpatient vi sit 15 minutes Nestor Sameer [facility] Start: 06-06-2023 ambulatory Kylie Ramseyi ty:CD:[id number] Start: 05-16-2023 Rx Renewal Nestor Matthews l Work Phone: [facility] 250 DO Work Phone: Start: 05-14-2023 End: 05-14-2023 ambulatory Kylie DIETRICH Facility:[facility] Start: 05-13-2023 ambulatory Kyliezak DIETRICH Facili ty:[id number] Start: 05-10-2023 End: 05-10-2023 ambulatory Kylie R KARLO Facility:[facility] Start: 05-10-2023 End: 05-10-2023 ambulatory Kylie R DIETRICH Facility:[facility] Start: 05-09-2023 End: 05-09-2023 ambulatory Nestor Estrella Other [facility] [place] Other Start: 05-09-2023 Telephone encounter Nestor SINGH [facility] Start: 05-02-2023 Telephone encounter Nestor SINGH [facility] Start: 05-02-2023 Office outpatient vi sit 15 minutes Nestor Darvin Sameer Work Phone: [facility] 250 DO Work Phone: Start: 05-02-2023 End: 05-02-[address] Nestor Estrella [facility] [place] Other Start: 04-22-2023 Telephone encounter Nestor SINGH [facility] Start: 04-22-2023 End: 04-23-2023 Evaluation and management of inpatient Nestor Sameer Facility:[facility] Start: 04-22-2023 End: 04-23-2023 Evaluation and management of inpatient DO Nestor Estrella Work Phone: [facility] [place] [facility] Work Phone: Start: 04-22-2023 End: 04-22-[address] Adriel Morgan [place] Other Start: 04-12-2023 End: 04-12-2023 ambulatory Nestor Sameer Other [place] Other Start: 04-12-2023 Office outpatient vi sit 15 minutes Nestor Estrella [facility] Start: 04-08-2023 End: 04-08-2023 Patient encounter procedure Kylie DIETRICH [facility] Start: 03-19-2023 End: 03-19-2023 ambulatory Nestor Estrella Other [place] Other Start: 03-19-2023 Telephone encounter Nestor Estrella [facility] Start: 02-06-2023 End: 02-06-2023 ambulatory Nestor Estrella Other [place] Other Start: 02-06-2023 Office outpatient vi sit 15 minutes Nestor Estrella [facility] Start: 02-06-2023 Telephone encounter Nestor SINGH [facility] Start: 01-31-2023 End: 01-31-2023 ambulatory Nestor Estrella Other [place] Other Start: 01-31-2023 Telephone encounter Nestor Estrella FP [facility] Start: 01-18-2023 End: 01-19-2023 ambulatory TASHA CHILDERS . Facility: Start: 01-14-2023 End: 01-14-2023 Patient encounter procedure Avel Heath MD Work Phone: Colorectal Surgery Comment on above: Irregular bowel habi ts (Primary Dx) Start: 01-07-2023 Telephone encounter Nestor Estrella [facility] Start: 01-07-2023 End: 01-07-[address] KYLIE DIETRICH . [place] [employer] Other Start: 12-31-2022 End: 12-31-2022 ambulatory Nestor Estrella Other [place] Other Start: 12-31-2022 Office outpatient vi sit 25 minutes Nestor Estrella [facility] Start: 12-27-2022 Telephone encounter Nestor Estrella FP [facility] Start: 12-27-2022 End: 12-28-[address] NESTOR ESTRELLA [facility] [place] Other Start: 12-25-2022 End: 12-25-2022 ambulatory Reid Ann Other [place] Other Start: 12-25-2022 Telephone encounter Reid Ann [facility] Start: 12-20-[address] KYLIE DIETRICH . Fac ility:[facility] Start: 12-12-[address] KYLIE DIETRICH . Fac ility:[facility] Start: 11-12-2022 End: 11-12-[address] KYLIE DIETRICH . Facility:[facility] Start: 11-04-2022 Evaluation and management of inpatient JIMMY ESTRELLA Facility:[facility] Start: 11-04-2022 End: 11-04-2022 Evaluation and management of inpatient [facility] Outside Imaging Ct Scan So Outside Imaging Second Opinion Start: 11-03-2022 End: 11-05-2022 Evaluation and management of inpatient LUKE [place] RIKY Facility:[facility] Start: 11-03-2022 End: 11-03-[address] HANG OHARA Facility:[facility] Start: 11-02-2022 End: 11-02-2022 Patient encounter procedure Kylie DIETRICH [facility] Start: 10-04-2022 End: 10-04-[address] KYLIE DIETRICH . Facility:[facility] Start: 09-28-2022 End: 09-29-[address] NESTOR ESTRELLA Facility:[facility] Start: 09-28-2022 End: 09-28-2022 Patient encounter procedure Kylie DIETRICH [facility] Start: 09-19-2022 End: 09-19-2022 Patient encounter procedure Marina FaraisWesley Rufus [facility] Start: 08-23-2022 End: 08-23-[address] KYLIE DIETRICH . Facility:[facility] Start: 08-08-2022 End: 08-08-2022 Patient encounter procedure TRINA BARRAGAN [facility] Start: 07-02-2022 End: 07-03-[address] NESTOR ESTRELLA Facility:H1 Start: 06-11-2022 End: 06-11-[address] KYLIE DIETRICH . Facility:[facility]1 Start: 06-04-2022 End: 06-04-2022 Patient encounter procedure Kylie DIETRICH [facility] Start: 04-30-2022 End: 04-30-[address] KYLIE DIETRICH . Facility:[facility]1 Start: 04-25-2022 End: 04-25-2022 Patient encounter procedure Marina FariasWelsey Solanodarvin [facility] Start: 04-09-2022 End: 04-09-[address] NESTOR ESTRELLA Facility:[facility]1 Start: 04-06-2022 End: 04-06-[address] NESTOR ESTRELLA Facility:[facility]1 Start: 04-02-2022 End: 04-02-[address] KYLIE DIETRICH . Facility:[facility]1 Start: 03-30-2022 End: 03-30-2022 Patient encounter procedure Kylie DIETRICH [facility] Start: 03-28-2022 End: 03-29-[address] NESTOR ESTRELLA Facility:[facility]1 Start: 03-05-2022 End: 03-05-[address] KYLIE DIETRICH . Facility:[facility]1 Start: 03-02-2022 End: 03-02-2022 Patient encounter procedure Kylie DIETRICH [facility] Start: 02-07-2022 End: 02-08-[address] NESTOR ESTRELLA Facility:[facility]1 Start: 01-08-2022 End: 01-08-2022 Patient encounter procedure Kylie DIETRICH [facility] Start: 05-09-2017 Ambulatory [facility] Ambulatory Start: 05-06-2017 End: 05-10-2017 Ambulatory ADRIEL MCNEILL [facility] Ambulato ry Procedures Date Procedure Procedure Detail Performing Clinician Start: 03-02-2024 Radiation therapy care Kylie DIETRICH Start: 02-19-2024 Urine culture Start: 02-19-2024 Basic metabolic pane l calcium total Darryl Chaparro MD Work Phone: Start: 02-04-2024 Blood count complete auto&auto difrntl wbc Jasmine Jansen PA-C Work Phone: Start: 01-28-2024 End: 01-28-2024 Comprehensive metabolic panel Jasmine Jansen PA-C Work Phone: Start: 12-14-2023 Bacteria identified in Urine by Culture Start: 12-05-2023 Transurethral resect ion of bladder neoplasm Kylie DIETRICH Start: 10-23-2023 CT of small intestine D [...] MD Work Phone: Start: 06-25-2023 Echocardiography Damon Boston Sameer Work Phone: Start: 04-22-2023 CL [facility] [...] DIETRICH Cardiac catheterization Piyush Estrella Work Phone: Cardiac catheterization Patr ick KARLO Cataract (disorder) Kylie DIETRICH Comment on above: [...] DTaP/Tdap/Td Vaccines (2 - Td or Tdap) [facility] Start: 01-18-2033 Tetanus vaccination TETANUS [facility] Start: 01-18-2033 Urine microalbumin profile DTaP,Tdap,Td Vaccine (3 - Td or Tdap) [facility] Start: 03-25-2027 Diabetes Screening Diabetes Screenin g [facility] Start: 02-25-2027 Diabetes Screening Diabetes Screenin g [facility] Start: 02-18-2027 Diabetes Screening Diabetes Screenky g [facility] Start: 02-11-2027 Diabetes Screening Diabetes Screenky g [facility] Start: 02-05-2027 Diabetes Screening Diabetes Screenin g [facility] Start: 02-03-2027 [facility] Start: 01-27-2027 [facility] Start: 01-19-2027 [facility] Start: 01-02-2027 [facility] Start: 10-09-2024 Diabetes mellitus screening Diabetes Screening [facility] Start: 09-28-2024 End: 09-28-2024 Patient encounter procedure 09/28/2024 2:00 PM EST Office Visit Inflammatory Bowel Disease [address] [place] [address] Memo Mccall MD [address] [place] [address] Inflammatory Bowel Disease [facility] Start: 07-01-2024 End: 07-01-2024 Follow-up encounter 07/01/2024 2:15 PM EDT Visit (SP) Office Hematology/Oncology [address] [place] [address] [place] [address] Darryl Chaparro MD [address] [place] [address] [place] [address] Followup after Radiation-Sees FEDERIOC after GENA Hematology/Oncology Comment on above: Followup after Radia tion-Sees FEDERICO after GENA Start: 07-01-2024 End: 07-01-2024 Patient encounter procedure [facility] Comment on above: Lab 3 month rv Start: 05-20-2024 End: 05-20-2024 Patient encounter procedure 05/20/2024 9:50 AM EDT Office Visit [facility] [address] [facility] [address] [place] [address] Adriel Morgan DO [address] [place] [address] [facility] Start: 03-25-2024 End: 03-25-2024 Follow-up encounter Hematology/Oncology Comment on above: Followup after Radia tion Followup after Radia tion-Sees FEDERICO after GENA Start: 03-25-2024 End: 03-25-2024 Patient encounter procedure [facility] Comment on above: Lab 3 week rv Start: 03-02-2024 End: 03-02-2024 Patient encounter procedure Radiation Oncology Comment on above: Bladder Boost - EMPT Y Location: [facility] Start: 02-28-2024 End: 02-28-2024 Patient encounter procedure 02/28/2024 9:00 AM EDT Appointment Radiation Oncology [address] [facility] [address] Bladder Boost - EMPTY Radiation Oncology Comment on above: Bladder Boost - EMPT Y Start: 02-27-2024 End: 02-27-2024 Patient encounter procedure 02/27/2024 9:00 AM EDT Appointment Radiation Oncology [address] [place] [address] Bladder Boost - EMPTY Radiation Oncology Comment on above: Bladder Boost - EMPT Y Start: 02-26-2024 End: 02-26-2024 Follow-up encounter 02/26/2024 10:15 AM EDT Visit (SP) Office Hematology/Oncology [address] [place] [address] Darryl Chaparro MD [address] [facility] [place] [address] 2 week follow up with lab / Tox check Hematology/Oncology Comment on above: 2 week follow up wit h lab / Tox check Start: 02-26-2024 End: 02-26-2024 Patient encounter procedure Radiation Oncology Comment on above: Bladder Boost - EMPT Y 2 week follow up wit h lab / Tox check Bladder Boost - EMPT Y- lab 10 umesh 1015 Start: 02-25-2024 End: 02-25-2024 Patient encounter procedure 02/25/2024 9:00 AM EDT Appointment Radiation Oncology [address] [facility] [facility] [place] [address] Bladder Boost - EMPTY Radiation Oncology Comment on above: Bladder Boost - EMPT Y Start: 02-24-2024 End: 02-24-2024 Patient encounter procedure Radiation Oncology Comment on above: Bladder Boost - EMPT Y Location: [facility] Start: 02-21-2024 End: 02-21-2024 Patient encounter procedure 02/21/2024 9:00 AM EDT Appointment Radiation Oncology [address] [facility] [facility] [place] [address] Bladder Boost - EMPTY Radiation Oncology Comment on above: Bladder Boost - EMPT Y Start: 02-20-2024 End: 02-20-2024 Patient encounter procedure 02/20/2024 9:00 AM EDT Appointment Radiation Oncology [address] [facility] [facility] [place] [address] Bladder Boost - EMPTY Radiation Oncology Comment on above: Bladder Boost - EMPT Y Start: 02-19-2024 End: 05-20-2024 Bacteria identified in Urine by Culture [facility] Comment on above: Expected: 02/19/2024 (Approximate), Expires: 05/20/2024 Start: 02-19-2024 End: 05-20-2024 UA DIP, URINE (POC) UA DIP, URINE (POC) Lab Routine 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) Expected: 02/19/2024 (Approximate), Expires: 05/20/2024 [facility] Work Phone: Comment on above: Expected: 02/19/2024 (Approximate), Expires: 05/20/2024 Start: 02-19-2024 End: 02-19-2024 Follow-up encounter 02/19/2024 9:30 AM EDT [facility] Hematology/Oncology [address] [place] [address] Tanner, Chair [address] [facility] [address] 1 week lab follow up and chemotx Cisplatin w/ XRT Hematology/Oncology Comment on above: 1 week lab follow up and chemotx Cisplatin w/ XRT Start: 02-19-2024 End: 02-19-2024 Patient encounter procedure 02/19/2024 9:00 AM EDT Appointment Radiation Oncology [address] [place] [address] Bladder Boost - EMPTY Radiation Oncology Comment on above: Bladder Boost - EMPT Y Start: 02-18-2024 End: 02-18-2024 Patient encounter procedure Radiation Oncology Comment on above: START BLADDER BOOST Bladder Boost - EMPT Y Start: 02-17-2024 End: 02-17-2024 Patient encounter procedure Radiation Oncology Comment on above: Bladder - EMPTY Location: [facility] Start: 02-14-2024 End: 02-14-2024 Patient encounter procedure 02/14/2024 9:30 AM EDT Appointment Radiation Oncology [address] [place] [address] Bladder - EMPTY Radiation Oncology Comment on above: Bladder - EMPTY Start: 02-13-2024 End: 02-13-2024 Patient encounter procedure 02/13/2024 9:30 AM EDT Appointment Radiation Oncology [address] [place] [address] Bladder - EMPTY Radiation Oncology Comment on above: Bladder - EMPTY Start: 02-12-2024 End: 02-12-2024 Follow-up encounter Hematology/Oncology Comment on above: 1 week lab follow up and chemotx Cisplatin w/ XRT-Radiation Prior 1 week lab follow up and chemotx Cisplatin w/ XRT Start: 02-12-2024 End: 02-12-2024 Patient encounter procedure [facility] Comment on above: 1 week lab follow up and chemotx Cisplatin w/ XRT Bladder - EMPTY- lab s 9:15, Gena 9:45 chemo 10 Start: 02-11-2024 End: 02-11-2024 Patient encounter procedure 02/11/2024 9:30 AM EDT Appointment Radiation Oncology [address] [place] [address] [place] [address] Bladder - EMPTY Radiation Oncology Comment on above: Bladder - EMPTY Start: 02-04-2024 End: 05-05-2024 CBC W Auto Differential panel - Blood CBC + DIFF Lab Routine 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) Expected: 02/04/2024 (Approximate), Expires: 05/05/2024 [facility] Work Phone: Comment on above: Expected: 02/04/2024 (Approximate), Expires: 05/05/2024 Start: 02-04-2024 End: 05-05-2024 Comprehensive metabolic 2000 panel - Serum or Plasma COMP METABOLIC PANEL Lab Routine 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) Expected: 02/04/2024 (Approximate), Expires: 05/05/2024 [facility] Work Phone: Comment on above: Expected: 02/04/2024 (Approximate), Expires: 05/05/2024 Start: 02-04-2024 End: 05-05-2024 Magnesium [Mass/volume] in Serum or Plasma MAGNESIUM BLD Lab Routine 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) Expected: 02/04/2024 (Approximate), Expires: 05/05/2024 [facility] Work Phone: Comment on above: Expected: 02/04/2024 (Approximate), Expires: 05/05/2024 Start: 11-20-2023 FUV, Provider: Adriel Morgan, Status: Pen, Time: 9:20 AM FUV, Provider: Adriel Morgan, Status: [place], Time: 9:20 AM [facility] Work Phone: Start: 10-21-2023 Advance Directive Discussion Advance Directive Discussion [facility] Start: 10-21-2023 Behavioral Health Screening Behavioral Health Screening [facility] Start: 10-21-2023 Depression Assessment Depression Ass essment [facility] Start: 06-25-2023 ECHO, Provider: DANIELLA NUNEZ [facility] ULTRASOUND 01,[id number], Status: Pen, Time: 12:30 PM ECHO, Provider: TANNER [facility] ULTRASOUND 01,[id number], Status: Pen, Time: 12:30 PM [facility] 250 DO Work Phone: Start: 06-21-2023 Covid-19 Vaccine ( season) Covid-19 Vaccine ( season) [facility] Start: 06-21-2023 COVID-19 VACCINE () COVID-19 VACCINE () [facility] Start: 06-21-2023 Covid-19 Vaccine ( season) Covid-19 Vaccine () [facility] Start: 06-21-2023 Influenza vaccination INFLUENZA VACC INE (#1) [facility] Start: 04-23-2023 [facility] Start: 04-22-2023 End: 04-22-2023 Referral to labor relations representative [facility] Start: 04-22-2023 Referral to cardiac rehabilitation program [facility] Start: 04-22-2023 Hospital admission [facility] Start: 10-21-2022 ADVANCE DIRECTIVE DISCUSSION ADVANCE DIRECTIVE DISCUSSION [facility] Start: 10-21-2022 DEPRESSION ASSESSMENT DEPRESSION ASS ESSMENT [facility] Start: 06-21-2022 Influenza vaccination INFLUENZA (#1) [facility] Start: 10-24-2018 Pneumococcal vaccination PNEUM OCOCCAL VACCINE SERIES (2 - PCV) [facility] Start: 10-24-2018 Pneumococcal Vaccine : 65+ Years (2 - PCV) Pneumococcal Vaccine: 65+ Years (2 - PCV) [facility] Start: 01-22-2015 DIABETES SCREEN DIABETES SCREEN [facility] Start: 2001 PNEUMOCOCCAL: 65+ (1 - PCV) PNEUMOCOCCAL: 65+ (1 - PCV) [facility] Start: 1996 RSV Vaccine (1 - 1-d ose 60+ series) RSV Vaccine (1 - 1-dose 60+ series) [facility] Start: 1986 SHINGRIX VACCINE (1 of 2) SHINGRIX VACCINE (1 of 2) [facility] Start: 1981 Screening for malign ant neoplasm of colon COLORECTAL CANCER SCREENING DISCUSSION [facility] Start: 1955 Shingrix Vaccine (1 of 2) Shingrix Vaccine (1 of 2) [facility] Start: 1955 Urine microalbumin profile [facility] Start: 1942 Pneumococcal Vaccine : 65+ (1 of 2 - PCV) Pneumococcal Vaccine: 65+ (1 of 2 - PCV) [facility] Start: 1936 COVID-19 VACCINE (#1) COVID-19 VACCI NE (#1) [facility] Start: 1936 Lipid panel Lipid Panel [facility] Start: 1936 Medicare Annual Well ness Visit Medicare Annual Wellness Visit (AWV) [facility] Calprotectin [Mass/m ass] in [facility] End: 01-02-2025 CBC W Auto Differential panel - Blood CBC + DIFF Lab Routine 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) Once per week for 30 Occurrences starting 01/03/2024 until 01/02/2025, 1 completed [facility] Work Phone: Comment on above: Once per week for 30 Occurrences starting 01/03/2024 until 01/02/2025, 1 completed End: 01-02-2025 Comprehensive metabolic 2000 panel - Serum or Plasma COMP METABOLIC PANEL Lab Routine 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) Every other week for 26 Occurrences starting 01/03/2024 until 01/02/2025, 1 completed [facility] Work Phone: Comment on above: Every other week for 26 Occurrences starting 01/03/2024 until 01/02/2025, [address] Guidance for radiation treatment of Unspecified body region CT SIM PLANNING RADIATION ONCOLOGY Radiology Routine 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) Ordered: 01/13/2024 [facility] Work Phone: Comment on above: Ordered: 01/13/2024 End: 10-09-2023 GOLD TOP TUBE [facility] Comment on above: Once for 1 Occurrenc es starting 10/09/2023 until 10/09/2023 End: 10-09-2023 LAVENDER TOP TUBE [facility] Comment on above: Once for 1 Occurrenc es starting 10/09/2023 until 10/09/2023 OCCULT BLD EXAM-DIAG OCCULT BLD EXAM-DIAG Microbiology Routine 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) Dark stools 02/07/2024 9:14 AM EDT [facility] Work Phone: Patient Education Coronary Angio plasty (DC) Coronary Stenting (DC) Angina (DC) Chest Pain (DC) Drug Eluting Stents [facility] Work Phone: Patient referral [facility] Work Phone: End: 10-09-2023 RAINBOW DRAW [facility] Work Phone: Comment on above: One Time for 1 Occur rences starting 10/09/2023 until 10/09/2023 End: 03-18-2025 US Lower extremity vein - bilateral US DVT LOWER BILATERAL Radiology Routine 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) Edema leg 1 Occurrences starting 02/17/2024 until 03/18/2025 [facility] Work Phone: Comment on above: 1 Occurrences starti ng 02/17/2024 until 03/18/2025 [facility] Immunizations Immunization Date Immunization Notes Care Provider Kaitlynn morejon 07-08-2023 influenza nasal, unspecified formulation Sherron Coughlin RN Work Phone: [facility] 07-08-2023 influenza virus vaccine, unspecified formulation [facility] 07-08-2023 influenza, high dose seasonal, preservative-free Nestor Estrella Other [facility] 01-18-2023 tetanus toxoid, reduced diphtheria toxoid, and acellular pertussis vaccine, adsorbed Nestor Estrella Work Phone: [facility] 08-30-2022 COVID-19 Pfizer (Pediatric) Nestor Estrella Other [facility] 08-30-2022 Pfizer COVID-19 Vac Bivalent 30 MCG/0.3ML Intramuscular Suspension Nestor Estrella Work Phone: [facility] 07-02-2022 Fluad Quadrivalent 0 .5 ML Intramuscular Prefilled Syringe Nestor Estrella Work Phone: [facility] 07-02-2022 influenza nasal, unspecified formulation Sherron Coughlin RN Work Phone: [facility] 07-02-2022 influenza virus vaccine, split virus (incl. purified surface antigen) Nestor Estrella Other [facility] Other 07-02-2022 influenza virus vaccine, unspecified formulation Josafat Sun MD Work Phone: [facility] 01-19-2022 Comirnaty 30 MCG/0.3 ML Intramuscular Suspension Nestor Estrella Work Phone: [facility] 01-19-2022 COVID-19 Vaccine Pfizer - Documentation Purposes Only Nestor Estrella Other [facility] 10-01-2021 zoster vaccine recombinant Nestor Estrella Work Phone: [facility] 07-31-2021 diphtheria, tetanus toxoids and acellular pertussis vaccine, unspecified formulation Nestor Estrella Other [facility] 07-31-2021 influenza nasal, unspecified formulation Sherron Coughlin RN Work Phone: [facility] 07-31-2021 influenza virus vaccine, split virus (incl. purified surface antigen) Nestor Estrella Other [facility] 07-31-2021 influenza virus vaccine, unspecified formulation [facility] 07-27-2021 influenza, seasonal, injectable, preservative free Nestor Estrella Work Phone: [facility] 06-09-2021 Pfizer-BioNTech COVID-19 Vacc 30 MCG/0.3ML Intramuscular Suspension Nestor Estrella Work Phone: [facility] 04-14-2021 zoster vaccine recombinant Nestor Estrella Work Phone: [facility] 12-02-2020 Pfizer-BioNTech COVID-19 Vacc 30 MCG/0.3ML Intramuscular Suspension Nestor Estrella Work Phone: [facility] 11-10-2020 [facility] COVID-19 Vacc 30 MCG/0.3ML Intramuscular Suspension Nestor Estrella Work Phone: [facility] 09-26-2020 bacillus calmette-blossom vaccine Kyliezak DIETRICH [facility] 09-12-2020 bacillus calmette-blossom vaccine Kylie DIETRICH [facility] 09-05-2020 bacillus calmette-blossom vaccine Kylie DIETRICH [facility] 08-29-2020 bacillus calmette-blossom vaccine Kylie DIETRICH [facility] 08-15-2020 bacillus calmette-blossom vaccine Kylie DIETRICH [facility] 08-08-2020 bacillus calmette-blossom vaccine Kylie DIETRICH [facility] 07-01-2020 influenza nasal, unspecified formulation Sherron Coughlin RN Work Phone: [facility] 07-01-2020 influenza virus vaccine, split virus (incl. purified surface antigen) Nestor Estrella Other [facility] 07-01-2020 influenza virus vaccine, unspecified formulation [facility] 08-03-2019 influenza, seasonal, injectable Nestor Estrella Work Phone: [facility] 07-15-2019 influenza nasal, unspecified formulation Sherron Coughlin RN Work Phone: [facility] 07-15-2019 influenza virus vaccine, split virus (incl. purified surface antigen) Nestor Estrella Other [facility] 07-15-2019 influenza virus vaccine, unspecified formulation [facility] 07-15-2018 AS03 adjuvant [employer] Work Phone: [facility] 07-15-2018 influenza nasal, unspecified formulation Sherron Coughlin RN Work Phone: [facility] 07-15-2018 influenza virus vaccine, split virus (incl. purified surface antigen) Nestor Estrella Other [facility] 07-15-2018 influenza virus vaccine, unspecified formulation [facility] 07-15-2018 Seasonal trivalent influenza vaccine, adjuvanted, preservative free Nestor Estrella Work Phone: [facility] 250 DO Work Phone: 10-24-2017 pneumococcal polysaccharide vaccine, 23 valent Nestor Estrella Work Phone: [facility] 06-27-2016 influenza nasal, unspecified formulation Sherron Coughlin RN Work Phone: [facility] 06-27-2016 influenza virus vaccine, split virus (incl. purified surface antigen) Nestor Estrella Other [facility] 06-27-2016 influenza virus vaccine, unspecified formulation [facility] 06-27-2016 pneumococcal conjuga te vaccine, 13 valent Nestor Estrella Other [facility] 10-29-2013 zoster vaccine, live Benjami amy Estrella Work Phone: [facility] Payers Date Payer Category Payer Self-pay [id number] 2022 Unknown 2016 Private Health Insurance JASE DOMINGUEZ MEDICARE SUPPLEMENT [id number] 2016-Present [phone] [address] [address] [place] [address] Indemnity [id number] 2003 Medicare [id number] 2001 Medicare [id number] 1959 Medicare [id number] 1959 Private Health Insurance [facility] [id number] 1936 Unknown [id number] 2.16.840.1.049912.3.579. 2.594 1936 Unknown [id number] 2.16.840.1.544850.3.579. 2.594 1936 Unknown [id number] 2.16.840.1.732063.3.579. 2.593 1936 Unknown [id number] 2.16.840.1.119775.3.579. 2.593 1936 Unknown [id number] 2.16.840.1.452148.3.579. 2.593 1936 Unknown [id number] 2.16.840.1.928743.3.579. 2.593 1936 Unknown [id number] 2.16.840.1.032210.3.579. 2.593 1936 Unknown [id number] 2.16.840.1.860656.3.579. 2.593 1936 Unknown [id number] 2.16.840.1.764297.3.579. 2.593 1936 Unknown [id number] 2.16.840.1.961531.3.579. 2.593 1936 Unknown [id number] 2.16.840.1.789906.3.579. 2.593 1936 Unknown [id number] 2.16.840.1.278134.3.579. 2.593 1936 Unknown [id number] 2.16.840.1.496856.3.579. 2.593 1936 Unknown [id number] 2.16.840.1.370093.3.579. 2.593 1936 Unknown [id number] 2.840.1.140199.3.579. 2.593 1936 Unknown [id number] 2.840.1.478774.3.579. 2.593 1936 Unknown [id number] 2.840.1.730409.3.579. 2.593 1936 Unknown [id number] 2.840.1.236741.3.579. 2.593 1936 Unknown [id number] 2.840.1.895776.3.579. 2.593 1936 Unknown [id number] 2.840.1.338008.3.579. 2.593 1936 Unknown [id number] 2.840.1.954872.3.579. 2.593 1936 Unknown [id number] 2.840.1.576362.3.579. 2.1068 1936 Unknown [id number] 2.840.1.746278.3.579. 2.356 1936 Unknown [id number] 2.16.840.1.292824.3.579. 2.356 1936 Unknown [id number] 2.840.1.010857.3.579. 2.356 1936 Unknown [id number] 2.840.1.038287.3.579. 2.727 1936 Unknown [id number] 2.840.1.129192.3.579. 2.727 1936 Unknown [id number] 2.840.1.192611.3.579. 2.72 1936 Unknown [id number] 2.840.1.417537.3.579. 2.727 1936 Unknown [id number] 2.840.1.927358.3.579. 2.72 1936 Unknown [id number] 2.840.1.368699.3.579. 2.72 1936 Unknown [id number] 2.0.1.405918.3.579. 2.72 1936 Unknown [id number] 2.840.1.705159.3.579. 2.727 1936 Unknown [id number] .840.1.975961.3.579. 2.727 1936 Unknown [id number] .840.1.394401.3.579. 2.727 1936 Unknown [id number] 12.06.830.1.576322.3.579. 2.72 1936 Unknown [id number] .840.1.211534.3.579. 2.727 1936 Unknown [id number] 2.840.1.792325.3.579. 2.727 1936 Unknown [id number] 2.840.1.770490.3.579. 2.1244 1936 Unknown [id number] 2.840.1.838531.3.579. 2.1244 Unknown [id number] ..840.1.953861.3.579. 2.531 Unknown [id number] 2.16.840.1.983419.3.579. 2.531 Social History Date Type Detail Facility Start: 09-01-2021 End: 04-20-2024 Tobacco smoking status Never smoked tobacco (finding) [facility] Start: 11-04-2022 End: 12-31-2023 Sex Assigned At Male [facility] Start: 01-23-2012 End: 12-31-2023 Tobacco use and exposure Smokeless tobacco non-user [facility] Work Phone: Start: 01-14-2023 End: 03-02-2024 Alcohol intake Current drinker of alcohol (finding) [facility] Start: 01-14-2023 Alcohol Comment 1/5 of whiskey every 6 months [facility] Start: 1935 Sex Assigned At Not on file C [facility] Start: 1935 Sex Assigned At Male F [facility] Start: 11-04-2022 End: 12-31-2023 No illicit drug use No illicit drug use [facility] Start: 11-04-2022 Alcohol intake Lifetime non-d yu (finding) [facility] Start: 11-20-2023 Alcohol Comment beer [facility] Work Phone: Start: 11-10-2023 End: 11-20-2023 Exposure to SARS-CoV-2 (event) Not sure [facility] National Score (1-100), lower number is lower risk 60 [facility] Start: 12-31-2023 Alcohol Comment beer rarely [facility] Medical Equipment Procedure Code Equipment Code Equipment Origin al Text Equipment Identifier Dates CL STENT GLENNY FRONTIER 3.0 X 12 FDA Start: 04-22-2023 CL STENT GLENNY FRONTIER 3.0 X 12 FDA Start: 04-22-2023 CL STENT GLENNY FRONTIER 3.0 X 12 FDA Start: 04-22-2023 Goals Date Patient Goal Desired Activity /State Functional Status Date Assessment Result Facility 04-20-2024 Functional Status N/A [facility] 12-05-2023 Functional Status No [facility] 04-23-2023 Functional status Patient at [facility] Work Phone: Mental Status Date Assessment Result Facility 04-23-2023 Cognitive function Cognitive Sta tus Patient at Baseline [facility] Work Phone: Clinical Notes 01-08-2022 to 04-20-2024 Suzanne Grajeda MD - 03/25/2024 1:47 PM EDTPatient InstructionsOrly Mistry MA - 03/25/2024 1:18 PM EDTOrly Garcia MA - 03/25/2024 1:18 PM EDTPatient Instructions Note Date & Type Note Facility 04-20-2024 Hospital Discharge instructions Patient Education 04/20/2024 14:46:42 Cystoscopy Cystoscopy Cystoscopy is a procedure that is used to help diagnose and sometimes treat conditions that affect the lower urinary tract. The lower urinary tract includes the bladder and the urethra. The urethra is the tube that drains urine from the bladder. Cystoscopy is done using a thin, tube-shaped instrument with a light and camera at the end (cystoscope). The cystoscope may be hard or flexible, depending on the goal of the procedure. The cystoscope is inserted through the urethra, into the bladder. Cystoscopy may be recommended if you have: Urinary tract infections that keep coming back. Blood in the urine (hematuria). An inability to control when you urinate (urinary incontinence) or an overactive bladder. Unusual cells found in a urine sample. A blockage in the urethra, such as a urinary stone. Painful urination. An abnormality in the bladder found during an intravenous pyelogram (IVP) or CT scan. Cystoscopy may also be done to remove a sample of tissue to be examined under a microscope (biopsy). Tell a health care provider about: Any allergies you have. All medicines you are taking, including vitamins, herbs, eye drops, creams, and tfnt-quk-qrhgagn medicines. Any problems you or family members have had with anesthetic medicines. Any blood disorders you have. Any surgeries you have had. Any medical conditions you have. Whether you are or may be . What are the risks? Generally, this is a safe procedure. However, problems may occur, including: Infection. Bleeding. Allergic reactions to medicines. Damage to other structures or organs. What happens before the procedure? Medicines Ask your health care provider about: Changing or stopping your regular medicines. This is especially important if you are taking diabetes medicines or blood thinners. Taking medicines such as aspirin and ibuprofen. These medicines can thin your blood. Do not take these medicines unless your health care provider tells you to take them. Taking rqvw-bht-fxbukzq medicines, vitamins, herbs, and supplements. Tests You may have an exam or testing, such as: X-rays of the bladder, urethra, or kidneys. CT scan of the abdomen or pelvis. Urine tests to check for signs of infection. General instructions Follow instructions from your health care provider about eating or drinking restrictions. Ask your health care provider what steps will be taken to help prevent infection. These steps may include: ?Washing skin with a germ-killing soap. ?Taking antibiotic medicine. Plan to have a responsible adult take you home from the hospital or clinic. What happens during the procedure? You will be given one or more of the following: ?A medicine to help you relax (sedative). ?A medicine to numb the area (local anesthetic). The area around the opening of your urethra will be cleaned. The cystoscope will be passed through your urethra into your bladder. Germ-free (sterile) fluid will flow through the cystoscope to fill your bladder. The fluid will stretch your bladder so that your health care provider can clearly examine your bladder du. Your doctor will look at the urethra and bladder. Your doctor may take a biopsy or remove stones. The cystoscope will be removed, and your bladder will be emptied. The procedure may vary among health care providers and hospitals. What can I expect after the procedure? After the procedure, it is common to have: Some soreness or pain in your abdomen and urethra. Urinary symptoms. These include: ?Mild pain or burning when you urinate. Pain should stop within a few minutes after you urinate. This may last for up to 1 week. ?A small amount of blood in your urine for several days. ?Feeling like you need to urinate but producing only a small amount of urine. Follow these instructions at home: Medicines Take czay-pmg-qojvczx and prescription medicines only as told by your health care provider. If you were prescribed an antibiotic medicine, take it as told by your health care provider. Do not stop taking the antibiotic even if you start to feel better. General instructions Return to your normal activities as told by your health care provider. Ask your health care provider what activities are safe for you. If you were given a sedative during the procedure, it can affect you for several hours. Do not drive or operate machinery until your health care provider says that it is safe. Watch for any blood in your urine. If the amount of blood in your urine increases, call your health care provider. Follow instructions from your health care provider about eating or drinking restrictions. If a tissue sample was removed for testing (biopsy) during your procedure, it is up to you to get your test results. Ask your health care provider, or the department that is doing the test, when your results will be ready. Drink enough fluid to keep your urine pale yellow. Keep all follow-up visits. This is important. Contact a health care provider if: You have pain that gets worse or does not get better with medicine, especially pain when you urinate. You have trouble urinating. You have more blood in your urine. Get help right away if: You have blood clots in your urine. You have abdominal pain. You have a fever or chills. You are unable to urinate. Summary Cystoscopy is a procedure that is used to help diagnose and sometimes treat conditions that affect the lower urinary tract. Cystoscopy is done using a thin, tube-shaped instrument with a light and camera at the end. After the procedure, it is common to have some soreness or pain in your abdomen and urethra. Watch for any blood in your urine. If the amount of blood in your urine increases, call your health care provider. If you were prescribed an antibiotic medicine, take it as told by your health care provider. Do not stop taking the antibiotic even if you start to feel better. This information is not intended to replace advice given to you by your health care provider. Make sure you discuss any questions you have with your health care provider. Document Revised: 06/20/2022 Document Reviewed: 05/19/2021 [employer] Patient Education 2022 [employer]. Follow Up Care 02/20/2024 10:40:56 With:KARLO CHOI, Kylie Restrepo, URL Address: [facility] [address], [place] [id number]- [phone] When: Unknown Comments:cysto due in June [facility] [place] 04-20-2024 Note Urology Office/Clini c Note Chief Complaint f/u after [facility] Referral HPI Staff Here for f/u after radiation at [facility]. Last seen in office 12/16/23. Dx: recurrent bladder papillary carcinoma, BPH with obstruction/LUTS, hydrocele. *Tamsulosin 0.4mg qd Repeat TURBT 12/05/23. CT AP 12/17/23 - neg for mets. Completed 5 weekly doses of Cisplatin with radiation 01/20/24 - 02/26/24. Radiation completed 01/20/24 - 03/02/24. Last saw Dr. Chaparro 03/25/24, plan was RTC in coordination with Dr. Grajeda with labs and scans to follow. (States he will go back in June) Reminder in chart that pt needs Cysto after Radiation. Only voiding 2ox at a time. States he dribbles throughout the day. Changes pants 3x/day. Can feel it when he is dribbling. Caregiver did call our office 03/03/24 c/o dribbling. PVR 03/04/24 0 Pt had just finished abx at that time due to UTI. Pt has a list of concerns. Dripping, Red Corpuscle Count, OTC supplements, FACT (organization that helps with cancer costs-needs a slip from [employer]) History of Present Illness Tests reviewed: reviewed UA, CT scan I have reviewed the previous health record information and history for this patient from Dr. Chaparro and Dr. Dietrich. I have reviewed and verified the staff HPI to be accurate for this encounter. Review of Systems PHQ Score Initial Depression Screen Score: 0 SCORE ROS - Provider Constitutional: denies weight loss, denies hot flashes. Eyes: denies eye problems. Gastrointestinal: denies nausea, denies vomiting. Cardiovascular: denies chest pain or angina. Integumentary: no dryness Musculoskeletal: denies musculoskeletal symptoms. ENMT: denies otolaryngeal symptoms. Respiratory: no shortness of breath. Heme/Lymph: denies easy bleeding tendency, denies easy bruising tendency. Psychiatric: no confusion, no anxiety. Genitourinary: See HPI. Physical Exam Vitals & Measurements HT: 70 in HT: 179 cm WT: 83.7 kg WT: 184.14 lb BMI: 26.12 General Appearance: alert, no distress, well nourished, well developed male. Assessment/Plan 1. 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 Last BCG given 09/26/20. S/p laser of bladder tumor 12/13/20 - Low grade papillary urothelial carcinoma, superficially sampled. Negative FISH/Cytol 07/10/21. S/p cystoscopy 07/17/21. Mitomycin tx 10/23/21. S/p Cysto 03/05/22 - No evidence of bladder tumors or erythematous mucosal lesions. Mitomycin tx 04/30/22. S/p Cysto 06/11/22 - No evidence of any bladder tumors or stones. Mitomycin tx 09/20/22. S/p Cysto/UD 11/12/22 - No classic papillary TCC tumors. 1.5-2cm raised, velvety red patch on back wall near dome. Concerning for recurrence. Negative FISH/Cytol 11/02/22. Canceled TURBT due to inability to urinate after prior cysto. Was advised to repeat cyst instead. S/p Cysto 01/07/23 - No evidence of papillary tumors or erythematous mucosal lesions. Mitomycin tx 04/11/23. Cytol 05/10/23 - Isolated atypical urothelial cells. Positive FISH. S/p Cysto 05/14/23 - Papillary TCC appearing tumors at bladder neck. Calcification adhered to tumors. S/p TURBT 12/05/23 - High-grade papillary urothelial carcinoma. Muscularis propria invasion identified. No definitive lymphovascular invasion noted. [facility] ER visit 12/14/23 due to gross hematuria, pain, and fever. Ucx - >100k E coli and >100k Klebsiella pneumoniae. Pt's catheter was changed and was discharged with Keflex x7 days. [1] Catheter removed 12/16/23. CT AP 12/17/23 - neg for mets. Completed 5 weekly doses of Cisplatin with radiation 01/20/24 - 02/26/24. Radiation completed 01/20/24 - 03/02/24. Last saw Dr. Chaparro 03/25/24, plan was RTC in coordination with Dr. Grajeda with labs and scans to follow, has appt in June. Noticed he voids each time he has a BM. Reports gross hematuria 2wks after radiation with repeat episode another 2 wks later. UA today shows moderate blood. 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 States he is supposed to be scheduled for a CT scan, advised pt this is due in May (can call our office if he needs an order). -Cont following with [facility] -Repeat cysto due late May/early June 2. Urge incontinence (N39.41: Urge incontinence) Reports severe leakage. Wears depends. Gets up multiple times per night. Very bothersome. Discussed starting medication to improve bladder control. Pt wishes to try this. -Start Myrbetriq ER 50mg qd. Discussed the medication side effects, and the patient will monitor closely for these, as well as for symptom improvement. If severe side effects occur, the medication should be stopped and the office notified. 3. BPH with obstruction/lower urinary tract symptoms (N40.1: Benign prostatic hyperplasia with lower urinary tract symptoms) Did [facility] in the past, 2020. Continues taking Tamsulosin 0.4mg qd. [2] 4. Hydrocele (N43.3: [place] (more content not included)... [facility] Comment on above: Result Comment: Elec tronically Signed By: Kylie DIETRICH MD\.br\Date and Time Signed: 04/20/24 14:54 EDT\.br\Electronically Co-Signed By: Bonnie Castillo.br\Date and Time Co-Signed: 04/20/24 14:50 EDT 04-20-2024 Note Patient Education Urology Cystoscopy Cystoscopy is a procedure that is used to help diagnose and sometimes treat conditions that affect the lower urinary tract. The lower urinary tract includes the bladder and the urethra. The urethra is the tube that drains urine from the bladder. Cystoscopy is done using a thin, tube-shaped instrument with a light and camera at the end (cystoscope). The cystoscope may be hard or flexible, depending on the goal of the procedure. The cystoscope is inserted through the urethra, into the bladder. Cystoscopy may be recommended if you have: ? Urinary tract infections that keep coming back. ? Blood in the urine (hematuria). ? An inability to control when you urinate (urinary incontinence) or an overactive bladder. ? Unusual cells found in a urine sample. ? A blockage in the urethra, such as a urinary stone. ? Painful urination. ? An abnormality in the bladder found during an intravenous pyelogram (IVP) or CT scan. Cystoscopy may also be done to remove a sample of tissue to be examined under a microscope (biopsy). Tell a health care provider about: ? Any allergies you have. ? All medicines you are taking, including vitamins, herbs, eye drops, creams, and dnmk-jmf-uvgotrb medicines. ? Any problems you or family members have had with anesthetic medicines. ? Any blood disorders you have. ? Any surgeries you have had. ? Any medical conditions you have. ? Whether you are or may be . What are the risks? Generally, this is a safe procedure. However, problems may occur, including: ? Infection. ? Bleeding. ? Allergic reactions to medicines. ? Damage to other structures or organs. What happens before the procedure? Medicines Ask your health care provider about: ? Changing or stopping your regular medicines. This is especially important if you are taking diabetes medicines or blood thinners. ? Taking medicines such as aspirin and ibuprofen. These medicines can thin your blood. Do not take these medicines unless your health care provider tells you to take them. ? Taking lsbn-cme-wifrkya medicines, vitamins, herbs, and supplements. Tests You may have an exam or testing, such as: ? X-rays of the bladder, urethra, or kidneys. ? CT scan of the abdomen or pelvis. ? Urine tests to check for signs of infection. General instructions ? Follow instructions from your health care provider about eating or drinking restrictions. ? Ask your health care provider what steps will be taken to help prevent infection. These steps may include: ? Washing skin with a germ-killing soap. ? Taking antibiotic medicine. ? Plan to have a responsible adult take you home from the hospital or clinic. What happens during the procedure? ? You will be given one or more of the following: ? A medicine to help you relax (sedative). ? A medicine to numb the area (local anesthetic). ? The area around the opening of your urethra will be cleaned. ? The cystoscope will be passed through your urethra into your bladder. ? Germ-free (sterile) fluid will flow through the cystoscope to fill your bladder. The fluid will stretch your bladder so that your health care provider can clearly examine your bladder du. ? Your doctor will look at the urethra and bladder. Your doctor may take a biopsy or remove stones. ? The cystoscope will be removed, and your bladder will be emptied. The procedure may vary among health care providers and hospitals. What can I expect after the procedure? After the procedure, it is common to have: ? Some soreness or pain in your abdomen and urethra. ? Urinary symptoms. These include: ? Mild pain or burning when you urinate. Pain should stop within a few minutes after you urinate. This may last for up to 1 week. ? A small amount of blood in your urine for several days. ? Feeling like you need to urinate but producing only a small amount of urine. Follow these instructions at home: Medicines ? Take qrik-apt-gfhybdd and prescription medicines only as told by your health care provider. ? If you were prescribed an antibiotic medicine, take it as told by your health care provider. Do not stop taking the antibiotic even if you start to feel better. General instructions ? Return to your normal activities as told by your health care provider. Ask your health care provider what activities are safe for you. ? If you were given a sedative during the procedure, it can affect you for several hours. Do not drive or operate machinery until your health care provider says that it is safe. ? Watch for any blood in your urine. If the amount of blood in your urine increases, call your health care provider. ? Follow instructions from your health care provider about eating or drinking restrictions. ? If a tissue sample was removed for testing (biopsy) during your procedure, it is up to you to get your test results. Ask your health care provider, (more content not included)... [facility] 03-25-[address] [facility] 03-25-2024 History of Present illness Narrative Radiation Oncology - Follow Up Note PATIENT NAME: Kennedy Kong PATIENT DIAGNOSIS: Bladder cancer, high-grade locally advanced T2b/T3b N0 M0 RADIATION SUMMARY: DATES OF TREATMENT: 01/20/2024-03/02/2024 AREA TREATED: Bladder DELIVERED DOSE: Area: Bladder 4000 cGy in 20 fractions, 2 Arcs, IMRT, 10 MV with daily CBCT DELIVERED DOSE: Area: Bladder Boost 2000 cGy in 10 fractions, 2 Arcs, IMRT, 10 MV with daily CBCT TOTAL: 6000 cGy in 30 fractions ELAPSED TIME: 42 days. INTERVAL HISTORY: Patient relates he had significant fatigue at the very end of treatment. This has improved considerably. Bowel function back to baseline. Denies any dysuria or hematuria. No pelvic cramping or pain. Appetite good. ALLERGIES Allergen Reactions Amoxicillin Other: See Comments Pt gets sores in mouth MEDICATIONS: CARROLL CHEWABLE ASPIRIN 81 mg chewable tablet CHEW 1 TABLET ONCE DAILY carvedilol (COREG) 6.25 mg tablet Take 6.25 mg by mouth two times a day with meals. clopidogrel (PLAVIX) 75 mg tablet Take 75 mg by mouth once daily. rosuvastatin (CRESTOR) 40 mg tablet Take 40 mg by mouth once daily. tamsulosin (FLOMAX) 0.4 mg Take 0.4 mg by mouth once daily. Fish Oil-DHA-EPA 1,200-144-216 mg cap Take by mouth once daily. Catheter ([facility] MALE EXTERNAL CATH) misc 1 Device once daily. REVIEW OF SYSTEMS: GENERAL: Negative for weight loss, fevers, chills, or night sweats. HEENT: Negative for sudden vision or hearing changes. NECK: Negative for masses in the neck. RESPIRATORY: Negative for cough or shortness of breath. CARDIAC: Negative for chest pain, palpitations, murmurs, or syncopal episodes. GI: SEE HPI. : SEE HPI. MUSCULOSKELETAL: Negative for limitations in movement, pain, or swelling. NEURO: Negative for dizziness, headache, weakness or numbness. HEMATOLOGIC: Negative for bleeding or easy bruising. SKIN: Negative for rashes or other skin changes. PHYSICAL EXAM: 03/25/24 Weight 83.5 kg (184 lb 1.4 oz) Height 178.4 cm (5' 10.24 ) BSA 2.03 BMI 26.24 Temp 36.2 C (97.2 F) Pulse 70 Resp 16 BP 113/65 SpO2 96 % KPS: 90 General Appearance: Alert and oriented. No acute distress. Neck: Normal ROM. No palpable cervical or supraclavicular adenopathy. Abdomen: Soft. Nontender. Nondistended. Musculoskeletal: No edema. Normal ROM in extremities. No bone or spine tenderness. Neuro: Speech fluent. Gait normal. No focal deficits. Skin: No rashes noted Lymphatics: No palpable lymphadenopathy. ASSESSMENT AND PLAN: Bladder cancer, high-grade locally advanced T2b/T3b N0 M0 Clinically doing well after recent completion of pelvic radiation and concurrent chemotherapy. He will have continued follow-up with urology with Dr. Dietrich. I will plan to see patient back in 2 to 3 months for postradiation follow-up. Signed by: Suzanne Grajeda MD cc: Nestor Estrella (C) [address] [place] [address] No referring provider defined for this encounter. documented in this encounter [facility] 03-25-2024 Instructions Bianca Hardwick - 03/25/2024 1:37 PM EDT RTC in coordination with Dr. Grajeda Labs same day - CBC, CMP Next set of scans per Dr. Grajeda documented in this encounter [facility] 03-25-2024 Nurse Note Patient would like to know if his tumor is shrinking, growing or what may be going on, he said people are asking him and he is not sure himself. Orly Garcia MA [facility] 03-25-2024 Nurse Note Patient would like to know if his tumor is shrinking, growing or what may be going on, he said people are asking him and he is not sure himself. Orly Garcia MA documented in this encounter [facility] 03-25-2024 History of Present illness Narrative Images from the original note were not included. NAME: Kennedy Kong [facility] NO.: [id number] DATE OF SERVICE: March 25, 2024 (Deann) Some elements in this clinic note that are critical to medical decision making have been carefully reviewed and included from a prior clinic note dated: February 26, 2024 (Pebblesmatthewsamantha) Referring Provider: Dr. Andry Grajeda Additional Clinicians involved in Kennedy Kong's care: Nestor Estrella, Avel Heath, Kylie Dietrich CC: Follow up for treatment. DIAGNOSIS: High grade muscle invasive bladder cancer ASSESSMENT: 88 year old man with a history of colon cancer in his mid-50's treated with Chemo/RT followed by surgery complicated by several strictures and bowel obstructions requiring surgical intervention since. 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 He was treated with BCG through 09/2020. He then had a low-grade papillary bladder ca Nov 2020 with negative cytology. He was given Mitomycin-C every 6 months from October 2021 - March 2023. On December 05, 2023, was identified as having pvsj-romdd-kjdlnm invasive papillary bladder cancer and has been referred to Radiation oncology and subsequently to me for an opinion regarding chemotherapy. 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 He would likely tolerate low dose weekly cisplatin for radiosensitizing given appropriate supportive therapy. Will Coordinate with Dr. Grajeda. PLAN: RTC in coordination with Dr. Grajeda Labs same day - CBC, CMP Next set of scans per Dr. Grajeda HPI: CASE HISTORY: Reverse Chronological Order 01/20/2024-03/02/2024 - Radiation 01/20/2024-02/19/2024 - Weekly Cisplatin 20 mg/m2 started with radiation 01/08/2024 - CT Chest: Subcentimeter noncalcified and partially calcified nodular opacities measuring up to 5 mm. Consider interval follow-up. Findings compatible with previous granulomatous disease. 12/17/2023 - CT A/P: Enhancing urothelial bladder lesion concerning for malignancy. No enlarged abdominal or pelvic lymph nodes. Other nonemergent findings. 12/05/2023 - Bladder tumor, transurethral resection: - High grade papillary urothelia carcinoma - Muscularis propria invasion identified 10/09/2023 - CT A/P: Small bowel obstruction with zone of transition in the lower mid abdomen. Large amount of stool within the cecum and throughout the colon. This can represent clinically has chronic constipation. Focal urinary bladder wall thickening adjacent to the right UVJ. Discrete uroepithelial lesion cannot be excluded. Prostatomegaly. 04/2023 - Non-STEMI - SOB and chest pain - obtuse marginal branch stented with drug eluting stent 10/23/2021-04/11/2023 - Mitomycin C - bladder instillation q 6 months 08/21/2021 - CT A/P: Enlarged left hemiscrotum with heterogenous hyperattenuation centrally and foci or air and fluid peripherally. The differential diagnosis would include testicular fracture versus malignancy. Presence of air could represent instrumentation or infection. Mildly enlarged heterogenous prostate gland. Dilated small bowel loops with rapid tapering and stool backup along suture lines at the rectosigmoid junction. 03/24/2021 - Urine, cystoscopic collected: Negative for malignant cells 11/23/2020 - Bladder tumor, biopsy: - Low grade papillary urothelial carcinoma, superficially sampled - No diagnostic lamina propria or detrusor muscle present. 08/08/2020-09/26/2020 - Bladder BCG instillation x 6 05/26/2020 - Bladder tumor, TURBT: - Predominantly low grade papillary urothelial carcinoma with minor component of high grade papillary urothelial carcinoma, non-invasive 03/09/2020 - US Kidneys/Bladder: No hydronephrosis or discrete nephrolithiasis. Probable small simple left renal cyst. Essentially unremarkable sonographic appearance of the bladder with mild postvoid residual. 11/04/2019 - Colonoscopy: No stricture visualized, anastomosis widely patent. The examination was otherwise normal. ~ - Colon cancer: Partial colectomy with colorectal anastomosis Updated Visit, March 25, 2024: Kennedy returns, he is doing well overall. He was starting to feel worn down with treatments but he is now improving. Kidney function, WBC, and anemia are all recovering nicely after treatment. Updated Visit, February 26, 2024: Kennedy returns today for a follow up. He completed his 5 weekly doses of Cisplatin. He is still undergoing radiation - 3 days left. He is feeling a lot better after taking Macrobid for UTI. His [id number]-cee is a patient of [facility]. Updated Visit, February 12, 2024: Kennedy returns today. He reports urinary incontinence, worse at night and disrupts his sleep. He asked about external catheters - I will discuss with care coordination. We also discussed trying adult diapers and/or menstrual pads. He also has some constipation and treats with laxatives. He has treatment today and next week - not anticipating additional chemotherapy. 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 Updated Visit, February 05, 2024: Kennedy Kong returns for follow-up and continued treatment. Overall he is tolerating treatment. He has had some diarrhea and has taken Kaopectate and has noticed some black stools. He denies fevers, chills, night sweats and signs/symptoms of infection. 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 Updated Visit, January 28, 2024: Mr. Kong returns for week 2 of cisplatin with radiation for his bladder cancer. He tolerated his first dose well. He reports that is wasn't as bad as I anticipated . He denies any nausea, vomiting, fever, chills, diarrhea, mouth sores or neuropathy. 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 Urinating fine. Has has a weak flow since this diagnosis, but this is unchanged. Updated Visit, January 20, 2024: Kennedy Kong returns for follow-up and to begin treatment. He starts radiation today. He denies fevers, chills, night sweats and signs/symptoms of infection. No bleeding or abnormal bruising. Overall he is doing fairly well today and wishes to proceed with treatment as planned. Initial Visit, January 03, 2024: Kennedy Kong presents today Hematology and Oncology evaluation, he is joined by his younger son, Dany. 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 He has a past history of colon cancer in the 1990s, s/p partial colectomy with colorectal anastomosis. He has received either gentamicin or mitomycin for bladder cancer previously. He has met with radiation, but has not had any treatment yet. I recommend cisplatin for him. He notes urination urgency due to difficulty emptying his bladder, worse at night. He has catheters at home and is capable of using them himself - I advised an ER visit if he has trouble with them. He is not a smoker but likely had past exposure to chemicals. 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 REVIEW OF SYSTEMS Per HPI and otherwise negative by full review of organ systems. ECOG PERFORMANCE STATUS: 0 PHYSICAL EXAMINATION: Vitals: BP 113/65 Pulse 70 Temp (Src) 97.2 (Temporal) Resp 16 Ht 5' 10.236 (1.78m) Wt 184 lb 1.4 oz (83.5kg) SpO2 96% BMI 26.24 kg/(m^2). Body surface area is 2.03 meters squared. Exam limited to gross visualization where appropriate. Gen.: This is an age-appropriate patient in no acute distress. Head: Appears atraumatic with no visible lesions. Eyes: Pupils equally round and reactive to light, extraocular muscles are intact. Neck: Supple. Respiratory: Appears to be respiring comfortably. Neurologic: Nonfocal to gross visualization. Alert and oriented 3. Psychiatric: No evidence of inappropriate anxiety or depression. Skin: Visible areas of skin without rash, lesions, wounds or petechiae. ALLERGIES: ALLERGIES Allergen Reactions Amoxicillin Other: See Comments Pt gets sores in mouth MEDICATIONS: CARROLL CHEWABLE ASPIRIN 81 mg chewable tablet CHEW 1 TABLET ONCE DAILY carvedilol (COREG) 6.25 mg tablet Take 6.25 mg by mouth two times a day with meals. clopidogrel (PLAVIX) 75 mg tablet Take 75 mg by mouth once daily. rosuvastatin (CRESTOR) 40 mg tablet Take 40 mg by mouth once daily. tamsulosin (FLOMAX) 0.4 mg Take 0.4 mg by mouth once daily. Fish Oil-DHA-EPA 1,200-144-216 mg cap Take by mouth once daily. Catheter ([facility] MALE EXTERNAL CATH) misc 1 Device once daily. LABORATORY VALUES: WBC (k/uL) Date Value 03/25/2024 5.39 RBC (m/uL) Date Value 03/25/2024 3.89 (L) Hemoglobin (g/dL) Date Value 03/25/2024 11.8 (L) Hematocrit (%) Date Value 03/25/2024 36.3 (L) MCV (fL) Date Value 03/25/2024 93.3 MCH (pg) Date Value 03/25/2024 30.3 MCHC (g/dL) Date Value 03/25/2024 32.5 RDW-CV (%) Date Value 03/25/2024 14.6 Platelet Count (k/uL) Date Value 03/25/2024 165 MPV (fL) Date Value 03/25/2024 8.6 (L) Glucose (mg/dL) Date Value 03/25/2024 135 (H) BUN (mg/dL) Date Value 03/25/2024 34 (H) Creatinine (mg/dL) Date Value 03/25/2024 1.19 Sodium (mmol/L) Date Value 03/25/2024 143 Potassium (mmol/L) Date Value 03/25/2024 4.8 Chloride (mmol/L) Date Value 03/25/2024 112 (H) CO2 (mmol/L) Date Value 03/25/2024 23 Protein, Total (g/dL) Date Value 03/25/2024 6.2 (L) Albumin (g/dL) Date Value 03/25/2024 3.8 (L) Calcium, Total (mg/dL) Date Value 03/25/2024 9.2 Alkaline Phosphatase (U/L) Date Value 03/25/2024 53 Bilirubin, Total (mg/dL) Date Value 03/25/2024 0.2 AST (U/L) Date Value 03/25/2024 15 ALT (U/L) Date Value 03/25/2024 13 DIAGNOSIS: (C67.0) 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) (primary encounter diagnosis) PAST MEDICAL HISTORY Diagnosis Date Basal cell cancer Colon cancer (HCC) Heart attack (HCC) 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) 01/05/2024 PAST SURGICAL HISTORY Procedure Laterality Date COLECTOMY PART W/ANASTOMOSIS 1990 followed with chemotx and radiation COLONSCOPY SCREENING HIGH RISK EXCISION HYDROCELE UNILAT 2006 left EXPLORATORY LAPAROTOMY CELIOTOMY W/WO BIOPSY SPX 2010 Laparotomy, exp for obstruction with partial bowel resection PAST SURGICAL HISTORY OF Basal cell carcinoma removed from right nares PAST SURGICAL HISTORY OF cardiac stent placement RMVL LENS MATERIAL PHACOFRAGMENTATION ASPIR 2010 Cataract Extraction bilateral Social History Tobacco Use Smoking status: Never Smokeless tobacco: Never Vaping Use Vaping Use: Never used Substance Use Topics Alcohol use: Yes Comment: beer rarely Drug use: No Comment: declines tx 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 Darryl Chaparro MD, CPE Hematology and Oncology Services Provided at: [place], [place] Scribe Attestation: This note was scribed by Bianca Hardwick on March 25, 2024 under the direction and supervision of Dr. Darryl Chaparro. I attest that all of the information documented is correct to the best of my knowledge. Provider Attestation: I, Darryl Chaparro MD, attest that all information documented by the above scribe is correct, and was supervised by me and under my direction. CC: Suzanne Estrella documented in this encounter [facility] 03-25-[address] [facility] 03-19-[address] [facility] 03-19-2024 History of Present illness Narrative SOCIAL WORK FOLLOW UP NOTE: [facility] Date of service:03/19/24 TOPICS ADDRESSED: community resources Assigned SW listed in Care Team tab: Yes SW completed and mailed a transportation mileage log to [employer] (Financial Assistance for Cancer Treatment) for the month of February 2024. INES Shaw documented in this encounter [facility] 03-02-2024 History of Present illness Narrative Radiation Oncology - On Treatment Review (OTR) Note PATIENT NAME: Kennedy Kong PATIENT DIAGNOSIS: Bladder cancer, high-grade locally advanced T2b/T3b N0 M0 COURSE: definitive and concurrent chemotherapy Current dose: 6000 cGy in 30 fx Planned dose: 6000 cGy in 30 fx SUBJECTIVE: Patient feels he has done better over the last week. No new problems. No hematuria. PHYSICAL EXAM: 03/02/24 0846 BP: 132/74 Pulse: 63 Resp: 16 Temp: 36.5 C (97.7 F) SpO2: 99% Weight: 84.2 kg (185 lb 10 oz) KPS: 80 General Appearance: Alert and oriented. No acute distress. Extremity: Edema without erythema left lower extremity, no popliteal or calf tenderness IMAGING/LAB RESULTS: Hemoglobin (g/dL) Date Value 02/26/2024 12.3 01/23/2012 15.2 Hematocrit (%) Date Value 02/26/2024 38.3 01/23/2012 45.4 WBC (k/uL) Date Value 02/26/2024 4.48 01/23/2012 5.86 Platelet Count (k/uL) Date Value 02/26/2024 155 01/23/2012 203 TOXICITY ASSESSMENT (CTC v4.0): Fatigue:grade 1 Radiation Dermatitis: grade 0 - No symptoms Diarrhea:grade 1 Proctitis: grade 0 - No symptoms Urinary frequency: grade 1 - present Dysuria: grade 0 - No symptoms Urinary incontinence: grade 1 (Occasional (e.g., with coughing, sneezing, etc.), pads not indicated) Urinary retention: grade 1 - Urinary, suprapubic or intermittent catheter placement not indicated; able to void with some residual Treatment chart checked: Yes Patient treatment site reviewed and verified:Yes Port films reviewed and current:Yes Medications started: None ASSESSMENT/PLAN: Patient finishing today. Discussed follow-up with him. Suzanne Grajeda MD documented in this encounter [facility] 03-02-[address] [facility] 03-02-2024 History of Present illness Narrative [facility] Radiation Oncology Department RADIATION ONCOLOGY - COMPLETION NOTE PATIENT: KENNEDY KONG: 1935 DATES OF TREATMENT: 01/20/2024-03/02/2024 DIAGNOSIS: Bladder cancer, high-grade locally advanced T2b/T3b N0 M0 AREA TREATED: Bladder DELIVERED DOSE: Area: Bladder 4000 cGy in 20 fractions, 2 Arcs, IMRT, 10 MV with daily CBCT DELIVERED DOSE: Area: Bladder Boost 2000 cGy in 10 fractions, 2 Arcs, IMRT, 10 MV with daily CBCT TOTAL: 6000 cGy in 30 fractions ELAPSED TIME: 42 days. CLINICAL SUMMARY: The patient tolerated radiation with mild radiation related diarrhea, cystitis and fatigue. He received concurrent cisplatin. The patient was able to complete treatment as intended without break interruption or modification of prescription plan. The disease response will be assessed in clinic. The patient will be seen again in 2 weeks for postradiation follow-up. Staff Physician Andry Grajeda M.D. / ALANNAH 44:17 PM Electronically Signed cc: Dr. Sameer Chaparro documented in this encounter [facility] 03-02-[address] [facility] 02-26-2024 History of Present illness Narrative Images from the original note were not included. NAME: Kennedy Kong [facility] NO.: [id number] DATE OF SERVICE: February 26, 2024 (Deann) Some elements in this clinic note that are critical to medical decision making have been carefully reviewed and included from a prior clinic note dated: February 12, 2024 (Deann) Referring Provider: Dr. Andry Grajeda Additional Clinicians involved in Kennedy Kong's care: Nestor Estrella, Avel Heath, Kylie Dietrich CC: Follow up for treatment. DIAGNOSIS: High grade muscle invasive bladder cancer ASSESSMENT: 88 year old man with a history of colon cancer in his mid-50's treated with Chemo/RT followed by surgery complicated by several strictures and bowel obstructions requiring surgical intervention since. 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 He was treated with BCG through 09/2020. He then had a low-grade papillary bladder ca Nov 2020 with negative cytology. He was given Mitomycin-C every 6 months from October 2021 - March 2023. On December 05, 2023, was identified as having [id number] invasive papillary bladder cancer and has been referred to Radiation oncology and subsequently to me for an opinion regarding chemotherapy. 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 He would likely tolerate low dose weekly cisplatin for radiosensitizing given appropriate supportive therapy. Will Coordinate with Dr. Grajeda. PLAN: Discontinue Cisplatin Finish radiation on 03/02 RTC in coordination with Dr. Grajeda Labs same day - CBC, CMP Next set of scans per Dr. Grajeda HPI: CASE HISTORY: Reverse Chronological Order 01/20/2024-02/19/2024 - Weekly Cisplatin 20 mg/m2 started with radiation 01/08/2024 - CT Chest: Subcentimeter noncalcified and partially calcified nodular opacities measuring up to 5 mm. Consider interval follow-up. Findings compatible with previous granulomatous disease. 12/17/2023 - CT A/P: Enhancing urothelial bladder lesion concerning for malignancy. No enlarged abdominal or pelvic lymph nodes. Other nonemergent findings. 12/05/2023 - Bladder tumor, transurethral resection: - High grade papillary urothelia carcinoma - Muscularis propria invasion identified 10/09/2023 - CT A/P: Small bowel obstruction with zone of transition in the lower mid abdomen. Large amount of stool within the cecum and throughout the colon. This can represent clinically has chronic constipation. Focal urinary bladder wall thickening adjacent to the right UVJ. Discrete uroepithelial lesion cannot be excluded. Prostatomegaly. 04/2023 - Non-STEMI - SOB and chest pain - obtuse marginal branch stented with drug eluting stent 10/23/2021-04/11/2023 - Mitomycin C - bladder instillation q 6 months 08/21/2021 - CT A/P: Enlarged left hemiscrotum with heterogenous hyperattenuation centrally and foci or air and fluid peripherally. The differential diagnosis would include testicular fracture versus malignancy. Presence of air could represent instrumentation or infection. Mildly enlarged heterogenous prostate gland. Dilated small bowel loops with rapid tapering and stool backup along suture lines at the rectosigmoid junction. 03/24/2021 - Urine, cystoscopic collected: Negative for malignant cells 11/23/2020 - Bladder tumor, biopsy: - Low grade papillary urothelial carcinoma, superficially sampled - No diagnostic lamina propria or detrusor muscle present. 08/08/2020-09/26/2020 - Bladder BCG instillation x 6 05/26/2020 - Bladder tumor, TURBT: - Predominantly low grade papillary urothelial carcinoma with minor component of high grade papillary urothelial carcinoma, non-invasive 03/09/2020 - US Kidneys/Bladder: No hydronephrosis or discrete nephrolithiasis. Probable small simple left renal cyst. Essentially unremarkable sonographic appearance of the bladder with mild postvoid residual. 11/04/2019 - Colonoscopy: No stricture visualized, anastomosis widely patent. The examination was otherwise normal. ~ - Colon cancer: Partial colectomy with colorectal anastomosis Updated Visit, February 26, 2024: Kennedy returns today for a follow up. He completed his 5 weekly doses of Cisplatin. He is still undergoing radiation - 3 days left. He is feeling a lot better after taking Macrobid for UTI. His fmqamab-zp-lwz is a patient of [facility]. Updated Visit, February 12, 2024: Kennedy returns today. He reports urinary incontinence, worse at night and disrupts his sleep. He asked about external catheters - I will discuss with care coordination. We also discussed trying adult diapers and/or menstrual pads. He also has some constipation and treats with laxatives. He has treatment today and next week - not anticipating additional chemotherapy. 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 Updated Visit, February 05, 2024: Kennedy Kong returns for follow-up and continued treatment. Overall he is tolerating treatment. He has had some diarrhea and has taken Kaopectate and has noticed some black stools. He denies fevers, chills, night sweats and signs/symptoms of infection. 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 Updated Visit, January 28, 2024: Mr. Kong returns for week 2 of cisplatin with radiation for his bladder cancer. He tolerated his first dose well. He reports that is wasn't as bad as I anticipated . He denies any nausea, vomiting, fever, chills, diarrhea, mouth sores or neuropathy. 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 Urinating fine. Has has a weak flow since this diagnosis, but this is unchanged. Updated Visit, January 20, 2024: Kennedy Kong returns for follow-up and to begin treatment. He starts radiation today. He denies fevers, chills, night sweats and signs/symptoms of infection. No bleeding or abnormal bruising. Overall he is doing fairly well today and wishes to proceed with treatment as planned. Initial Visit, January 03, 2024: Kennedy Kong presents today Hematology and Oncology evaluation, he is joined by his younger son, Dany. 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 He has a past history of colon cancer in the , s/p partial colectomy with colorectal anastomosis. He has received either gentamicin or mitomycin for bladder cancer previously. He has met with radiation, but has not had any treatment yet. I recommend cisplatin for him. He notes urination urgency due to difficulty emptying his bladder, worse at night. He has catheters at home and is capable of using them himself - I advised an ER visit if he has trouble with them. He is not a smoker but likely had past exposure to chemicals. 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 REVIEW OF SYSTEMS Per HPI and otherwise negative by full review of organ systems. ECOG PERFORMANCE STATUS: 0 PHYSICAL EXAMINATION: Vitals: BP 108/61 Pulse 70 Temp (Src) 97.8 (Temporal) Resp 16 Ht 5' 10.236 (1.78m) Wt 185 lb 6.5 oz (84.1kg) SpO2 98% BMI 26.42 kg/(m^2). Body surface area is 2.04 meters squared. Exam limited to gross visualization where appropriate. Gen.: This is an age-appropriate patient in no acute distress. Head: Appears atraumatic with no visible lesions. Eyes: Pupils equally round and reactive to light, extraocular muscles are intact. Neck: Supple. Respiratory: Appears to be respiring comfortably. Neurologic: Nonfocal to gross visualization. Alert and oriented 3. Psychiatric: No evidence of inappropriate anxiety or depression. Skin: Visible areas of skin without rash, lesions, wounds or petechiae. ALLERGIES: ALLERGIES Allergen Reactions Amoxicillin Other: See Comments Pt gets sores in mouth MEDICATIONS: nitrofurantoin monohydrate and macrocrystal (MACROBID) 100 mg capsule Take 1 capsule by mouth two times a day for 7 days. Catheter ([facility] EXTERNAL CATH) misc 1 Device once daily. loperamide HCl (IMODIUM A-D ORAL) Take by mouth as needed. ondansetron (ZOFRAN) 8 mg tablet Take 1 tablet by mouth every 8 hours as needed for nausea/vomiting. prochlorperazine (COMPAZINE) 10 mg tablet Take 1 tablet by mouth every 6 hours as needed. CARROLL CHEWABLE ASPIRIN 81 mg chewable tablet CHEW 1 TABLET ONCE DAILY carvedilol (COREG) 6.25 mg tablet Take 6.25 mg by mouth two times a day with meals. clopidogrel (PLAVIX) 75 mg tablet Take 75 mg by mouth once daily. rosuvastatin (CRESTOR) 40 mg tablet Take 40 mg by mouth once daily. tamsulosin (FLOMAX) 0.4 mg Take 0.4 mg by mouth once daily. Fish Oil-DHA-EPA 1,200-144-216 mg cap Take by mouth once daily. LABORATORY VALUES: WBC (k/uL) Date Value 02/26/2024 4.48 RBC (m/uL) Date Value 02/26/2024 4.14 (L) Hemoglobin (g/dL) Date Value 02/26/2024 12.3 (L) Hematocrit (%) Date Value 02/26/2024 38.3 (L) MCV (fL) Date Value 02/26/2024 92.5 MCH (pg) Date Value 02/26/2024 29.7 MCHC (g/dL) Date Value 02/26/2024 32.1 RDW-CV (%) Date Value 02/26/2024 14.1 Platelet Count (k/uL) Date Value 02/26/2024 155 MPV (fL) Date Value 02/26/2024 8.7 (L) Glucose (mg/dL) Date Value 02/26/2024 93 BUN (mg/dL) Date Value 02/26/2024 21 Creatinine (mg/dL) Date Value 02/26/2024 1.10 Sodium (mmol/L) Date Value 02/26/2024 141 Potassium (mmol/L) Date Value 02/26/2024 4.4 Chloride (mmol/L) Date Value 02/26/2024 106 (H) CO2 (mmol/L) Date Value 02/26/2024 27 Protein, Total (g/dL) Date Value 02/26/2024 6.2 (L) Albumin (g/dL) Date Value 02/26/2024 3.7 (L) Calcium, Total (mg/dL) Date Value 02/26/2024 9.3 Alkaline Phosphatase (U/L) Date Value 02/26/2024 57 Bilirubin, Total (mg/dL) Date Value 02/26/2024 0.2 AST (U/L) Date Value 02/26/2024 14 ALT (U/L) Date Value 02/26/2024 15 DIAGNOSIS: (C67.0) 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) (primary encounter diagnosis) PAST MEDICAL HISTORY Diagnosis Date Basal cell cancer Colon cancer (HCC) Heart attack (HCC) 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) 01/05/2024 PAST SURGICAL HISTORY Procedure Laterality Date COLECTOMY PART W/ANASTOMOSIS 1990 followed with chemotx and radiation COLONSCOPY SCREENING HIGH RISK EXCISION HYDROCELE UNILAT 2006 left EXPLORATORY LAPAROTOMY CELIOTOMY W/WO BIOPSY SPX 2010 Laparotomy, exp for obstruction with partial bowel resection PAST SURGICAL HISTORY OF Basal cell carcinoma removed from right nares PAST SURGICAL HISTORY OF cardiac stent placement RMVL LENS MATERIAL PHACOFRAGMENTATION ASPIR 2010 Cataract Extraction bilateral Social History Tobacco Use Smoking status: Never Smokeless tobacco: Never Vaping Use Vaping Use: Never used Substance Use Topics Alcohol use: Yes Comment: beer rarely Drug use: No Comment: declines tx 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 Darryl Chaparro MD, CPE Hematology and Oncology Services Provided at: [place], [place] Scribe Attestation: This note was scribed by Bianca Hardwick on February 26, 2024 under the direction and supervision of Dr. Darryl Chaparro. I attest that all of the information documented is correct to the best of my knowledge. Provider Attestation: I, Darryl Chaparro MD, attest that all information documented by the above scribe is correct, and was supervised by me and under my direction. CC: Suzanne Estrella documented in this encounter [facility] 02-26-2024 Instructions Bianca Hardwick - 02/26/2024 10:15 AM EDT Discontinue Cisplatin Finish radiation on 03/02 RTC in coordination with Dr. Grajeda Labs same day - CBC, CMP Next set of scans per Dr. Grajeda documented in this encounter [facility] 02-26-[address] [facility] 02-26-2024 Nurse Note Patient states that he has constipation, he is taking stool softener. Orly Garcia MA [facility] 02-26-2024 Nurse Note Patient states that he has constipation, he is taking stool softener. Orly Garcia MA documented in this encounter [facility] 02-24-[address] [facility] 02-24-2024 History of Present illness Narrative SOCIAL WORK FOLLOW UP NOTE: [facility] Date of service:02/24/24 TOPICS ADDRESSED: community resources PLAN: Continue follow up as needed Assigned SW listed in Care Team tab: Yes SW completed and mailed a transportation mileage log to [employer] ([employer] for Cancer [employer]) for the month of January 2024. INES Shaw documented in this encounter [facility] 02-24-[address] [facility] 02-24-2024 History of Present illness Narrative Radiation Oncology - On Treatment Review (OTR) Note PATIENT NAME: Kennedy Kong PATIENT DIAGNOSIS: Bladder cancer, high-grade locally advanced T2b/T3b N0 M0 COURSE: definitive and concurrent chemotherapy Current dose: 5000 cGy in 25 fx Planned dose: 6000 cGy in 30 fx SUBJECTIVE: Had some diarrhea over the weekend improved with Imodium. Venous duplex lower extremity negative last week. Leg swelling stable. PHYSICAL EXAM: 02/24/24 0938 BP: 147/75 Pulse: 69 Resp: 16 Temp: 36.3 C (97.3 F) TempSrc: Oral SpO2: 99% Weight: 84.9 kg (187 lb 2.7 oz) KPS: 80 General Appearance: Alert and oriented. No acute distress. Extremity: Edema without erythema left lower extremity, no popliteal or calf tenderness IMAGING/LAB RESULTS: Hemoglobin (g/dL) Date Value 02/19/2024 11.4 01/23/2012 15.2 Hematocrit (%) Date Value 02/19/2024 35.3 01/23/2012 45.4 WBC (k/uL) Date Value 02/19/2024 4.40 01/23/2012 5.86 Platelet Count (k/uL) Date Value 02/19/2024 153 01/23/2012 203 TOXICITY ASSESSMENT (CTC v4.0): Fatigue:grade 1 Radiation Dermatitis: grade 0 - No symptoms Diarrhea:grade 1 Proctitis: grade 0 - No symptoms Urinary frequency: grade 1 - present Dysuria: grade 0 - No symptoms Urinary incontinence: grade 1 (Occasional (e.g., with coughing, sneezing, etc.), pads not indicated) Urinary retention: grade 1 - Urinary, suprapubic or intermittent catheter placement not indicated; able to void with some residual Treatment chart checked: Yes Patient treatment site reviewed and verified:Yes Port films reviewed and current:Yes Medications started: None ASSESSMENT/PLAN: Overall tolerating treatment well. Continue as outlined. Continue diet modification and Imodium for diarrhea. Suzanne Grajeda MD documented in this encounter [facility] 02-24-2024 Telephone encounter Note Pt here for XRT and was notified about his change of ATB. Pt verbalized understanding and will stop the CIpro that was prescribed last week. Emeli Genao RN [facility] 02-24-2024 Miscellaneous Notes Pt here for XRT and was notified about his change of ATB. Pt verbalized understanding and will stop the CIpro that was prescribed last week. Emeli Genao RN Discussed w/ AJUSTIN Alejandro, who will inform pt when here for radiation today. Sherron Coughlin RN ----- Message from Darryl Chaparro MD sent at 02/23/2024 8:39 AM EDT ----- Angeline Kong - Stop taking Ciprofloxacin please - it is not effective against your urinary infection. - we didn't know this as the urine culture sensitivities didn't come back until now. I have sent another prescription for you called nitrofurantoin. documented in this encounter [facility] 02-24-2024 Telephone encounter Note Discussed w/ JUSTIN iMller, who will inform pt when here for radiation today. Sherron Coughlin RN [facility] Work Phone: 02-24-2024 Telephone encounter Note ----- Message from Darryl Chaparro MD sent at 02/23/2024 8:39 AM EDT ----- Angeline Kong - Stop taking Ciprofloxacin please - it is not effective against your urinary infection. - we didn't know this as the urine culture sensitivities didn't come back until now. I have sent another prescription for you called nitrofurantoin. [facility] 02-21-2024 Telephone encounter Note Pt notified of script and verbalizes understanding. Sherron Coughlin RN [facility] Work Phone: 02-21-2024 Miscellaneous Notes Pt notified of script and verbalizes understanding. Sherron Coughlin RN Addended by: DARRYL CHAPARRO on: 02/21/2024 02:03 PM Modules accepted: Orders Rx for cipro sent Pt here for radiation with multiple complaints. States he is just not feeling well. He has had ongoing urination issues which persist. He is also having diarrhea now which started yesterday evening. He has not taken imodium yet but will be when he gets home. Pt has edema in bilateral hands with left greater than right. He also continues to have left lower extremity edema and states I can barely put my shoe on. Pt wearing work boots and pitting edema noted to left lower leg/calf 1-2+. Trace edema on Right. Denies calf tenderness. Had Venous duplex BLE that was negative. Denies SOB, but reports feeling fatigued. Denies CP, Fever or chills. Pt did have UA C&S With prelim showing ecoli. I told him I was not sure if they'd want to go ahead and prescribe an ATB going in to the weekend even if susceptibility is not back yet. Dr Bravo & Team- Please advise. Pt was discharged to home. He would like any Rx sent to [facility]. We did discuss imodium usage and pushing fluids for hydration. Emeli Genao RN documented in this encounter [facility] 02-21-2024 Note Addended by: DARRYL LEAL on: 02/21/2024 02:03 PM Modules accepted: Orders [facility] 02-21-2024 Telephone encounter Note Rx for cipro sent [facility] 02-21-[address] [facility] 02-21-2024 History of Present illness Narrative Pt seen at request of radiation therapists due to multiple complaints. See Telephone counter to Dr Chaparro for complete documentation. Emeli Genao, JUSTIN documented in this encounter [facility] 02-21-2024 Telephone encounter Note Pt here for radiation with multiple complaints. States he is just not feeling well. He has had ongoing urination issues which persist. He is also having diarrhea now which started yesterday evening. He has not taken imodium yet but will be when he gets home. Pt has edema in bilateral hands with left greater than right. He also continues to have left lower extremity edema and states I can barely put my shoe on. Pt wearing work boots and pitting edema noted to left lower leg/calf 1-2+. Trace edema on Right. Denies calf tenderness. Had Venous duplex BLE that was negative. Denies SOB, but reports feeling fatigued. Denies CP, Fever or chills. Pt did have UA C&S With prelim showing ecoli. I told him I was not sure if they'd want to go ahead and prescribe an ATB going in to the weekend even if susceptibility is not back yet. Dr Bravo & Team- Please advise. Pt was discharged to home. He would like any Rx sent to [facility]. We did discuss imodium usage and pushing fluids for hydration. Emeli Genao RN [facility] 02-19-[address] [facility] 02-19-2024 History of Present illness Narrative Patient had an episode of incontinence while receiving his chemotherapy today. Educated patient on the importance of cleansing the urine off the skin due to the irritation related to the chemotherapy. Patient verbalized understanding and will shower at home. Patient c/o urinary frequency at night and patient feels he cannot empty his bladder at night. He c/o not having a strong flow at night. Patient states he gets up every hour sometimes and this has been going on for about 4 weeks. He is not sleeping well because of it. Patient advised to follow up with his urologist. He did have an appointment last week but he cancelled not knowing if he needed to go. Patient understands that he does need to follow up. Patient given updated med list to take home as he could not recall whether he takes flomax anymore. Patient will review his medications with his home health nurse and bring it back. Patient did say, after getting the IV lasix after tx that he has no trouble urinating. He tries to avoid fluids after 4 pm. UA & cx sent today. No further questions or concerns. Nandini Angulo RN documented in this encounter [facility] 02-19-2024 Nurse Note Back office UA test performed. Results entered in Epic and doctor notified. Taina Love MA [facility] 02-19-2024 Telephone encounter Note Patient reports urinary frequency with retention throughout the night for the past month, notes none the days he gets IV lasix (w/tx), denies discomfort. Discussed with Dr Chaparro and orders received for UA and C&S today and instruct patient to contact Dr Dietrich for follow up Discussed with patient who agrees with plan Radha Torres RN [facility] 02-19-2024 Miscellaneous Notes Patient reports urinary frequency with retention throughout the night for the past month, notes none the days he gets IV lasix (w/tx), denies discomfort. Discussed with Dr Chaparro and orders received for UA and C&S today and instruct patient to contact Dr Dietrich for follow up Discussed with patient who agrees with plan Radha Torres RN documented in this encounter [facility] 02-18-2024 Miscellaneous Notes Sizing phoned to [employer]. Sherron Couhglin RN Pt sized for catheter while here for radiation today. Per JUSTIN Miller, the sizing guide recommended 31 mm (intermediate). Call placed to [facility]. She was not available at time of call. Message left w/ office staff requesting she call back when convenient. Sherron Coughlin RN Voicemail message received from [facility]. Requests that we specify size of pt's [place] catheter. Sizing guide printed and given to Artis and Madeleine. They will assist pt when here today for radiation. Sherron Coughlin RN documented in this encounter [facility] 02-18-2024 Telephone encounter Note Sizing phoned to [employer]. Sherron Coughlin RN [facility] Work Phone: 02-18-2024 Telephone encounter Note Pt sized for catheter while here for radiation today. Per JUSTIN Miller, the sizing guide recommended 31 mm (intermediate). Call placed to [facility]. She was not available at time of call. Message left w/ office staff requesting she call back when convenient. Sherron Coughlin RN [facility] 02-18-2024 Note HNO ID: [id number] Author: Suzanne GRAJEDA MD Service: ? Author Type: Physician Type: Progress Notes Filed: 02/18/2024 10:05 Note Text: Boost films reviewed. [facility] 02-18-2024 History of Present illness Narrative Boost films reviewed. documented in this encounter [facility] 02-18-2024 Telephone encounter Note Voicemail message received from [facility]. Requests that we specify size of pt's [place] catheter. Sizing guide printed and given to Artis and Madeleine. They will assist pt when here today for radiation. Sherron Coughlin RN [facility] 02-17-2024 Note Addended by: Suzanne GRAJEDA on: 02/17/2024 10:29 AM Modules accepted: Orders [facility] 02-17-2024 Miscellaneous Notes Addended by: Suzanne GRAJEDA on: 02/17/2024 10:29 AM Modules accepted: Orders Addended by: EPI RAZO on: 02/17/2024 10:15 AM Modules accepted: Orders documented in this encounter [facility] 02-17-2024 Note Addended by: EPI RAZO on: 02/17/2024 10:15 AM Modules accepted: Orders [facility] 02-17-[address] [facility] 02-17-2024 History of Present illness Narrative Radiation Oncology - On Treatment Review (OTR) Note PATIENT NAME: Kennedy Kong PATIENT DIAGNOSIS: Bladder cancer, high-grade locally advanced T2b/T3b N0 M0 COURSE: definitive and concurrent chemotherapy Current dose: 4000 cGy in 20 fx Planned dose: 6000 cGy in 30 fx SUBJECTIVE: Overall doing well. Feels his left leg swelling has increased, feels warmer than right. PHYSICAL EXAM: 02/17/24 0932 BP: 136/67 Pulse: 66 Resp: 16 Temp: 36.2 C (97.2 F) SpO2: 99% Weight: 84.6 kg (186 lb 8.2 oz) KPS: 80 General Appearance: Alert and oriented. No acute distress. Extremity: Edema without erythema left lower extremity, no popliteal or calf tenderness IMAGING/LAB RESULTS: Hemoglobin (g/dL) Date Value 02/12/2024 13.1 01/23/2012 15.2 Hematocrit (%) Date Value 02/12/2024 40.8 01/23/2012 45.4 WBC (k/uL) Date Value 02/12/2024 5.64 01/23/2012 5.86 Platelet Count (k/uL) Date Value 02/12/2024 188 01/23/2012 203 TOXICITY ASSESSMENT (CTC v4.0): Fatigue:grade 1 Radiation Dermatitis: grade 0 - No symptoms Diarrhea:grade 1 Proctitis: grade 0 - No symptoms Urinary frequency: grade 1 - present Dysuria: grade 0 - No symptoms Urinary incontinence: grade 1 (Occasional (e.g., with coughing, sneezing, etc.), pads not indicated) Urinary retention: grade 1 - Urinary, suprapubic or intermittent catheter placement not indicated; able to void with some residual Treatment chart checked: Yes Patient treatment site reviewed and verified:Yes Port films reviewed and current:Yes Medications started: None ASSESSMENT/PLAN: Overall treatment tolerance has been good. Boost will start tomorrow. Continue radiation as outlined. Given increasing edema left leg unclear etiology, possibly related to prior surgical procedure. However underlying DVT also on the differential recommend venous duplex for further evaluation. Suzanne Grajeda MD documented in this encounter [facility] 02-12-2024 Telephone encounter Note Order faxed to [employer]. Attn: Alanis Arce. [phone]. Sherron Coughlin RN [facility] 02-12-2024 Miscellaneous Notes Order faxed to [employer]. Attn: Alanis Arce. [phone]. Sherron Coughlin RN Images from the original note were not included. Darryl Chaparro MD Sessler, Rebecca, RN; Epi [employer] LPN Anyone know where he could get a [place] saldaña or condom catheter? [facility] in [place] will dispense urinary supplies through their home health division. Gena: Order pended. Sherron Coughlin RN documented in this encounter [facility] 02-12-[address] [facility] 02-12-2024 History of Present illness Narrative Dr. Chaparro would like magnesium given to pt. No need to draw mag level. Replacing mag d/t cisplatin. Trina Andrade RN documented in this encounter [facility] 02-12-2024 Telephone encounter Note Images from the original note were not included. Darryl Chaparro MD Sessler, Rebecca, RN; [employer] LPN Anyone know where he could get a [place] saldaña or condom catheter? [facility] in [place] will dispense urinary supplies through their home health division. Gena: Order pended. Sherron Coughlin RN [facility] 02-12-2024 Instructions Bianca Hardwick - 02/12/2024 10:07 AM EDT Will continue with weekly Cisplatin concurrent with radiation. Anticipate today's dose and next week RTC in 2 weeks to review toxicity Labs same day but do not anticipate additional chemotherapy documented in this encounter [facility] 02-12-2024 Nurse Note Patient did bring a stool sample in due to bowel movements being black then dark brown. He has not received the results of this. Orly Garcia MA [facility] 02-12-2024 Nurse Note Patient did bring a stool sample in due to bowel movements being black then dark brown. He has not received the results of this. Orly Garcia MA Patient states he has burning with urination, bowels do not move real good. Orly Garcia MA documented in this encounter [facility] 02-12-2024 Nurse Note Patient states he has burning with urination, bowels do not move real good. Orly Garcia MA [facility] 02-12-2024 History of Present illness Narrative Images from the original note were not included. NAME: Kennedy Kong [facility] NO.: [id number] DATE OF SERVICE: February 12, 2024 (Deann) Some elements in this clinic note that are critical to medical decision making have been carefully reviewed and included from a prior clinic note dated: February 05, 2024 (Toñito). Referring Provider: Dr. Andry Grajeda Additional Clinicians involved in Kennedy Kong's care: Nestor Estrella, Avel Heath, Kylie Dietrich CC: Follow up for treatment. DIAGNOSIS: High grade muscle invasive bladder cancer ASSESSMENT: 88 year old man with a history of colon cancer in his mid-50's treated with Chemo/RT followed by surgery complicated by several strictures and bowel obstructions requiring surgical intervention since. 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 He was treated with BCG through 09/2020. He then had a low-grade papillary bladder ca Nov 2020 with negative cytology. He was given Mitomycin-C every 6 months from October 2021 - March 2023. On December 05, 2023, was identified as having pytw-[id number]-lheonk invasive papillary bladder cancer and has been referred to Radiation oncology and subsequently to me for an opinion regarding chemotherapy. 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 He would likely tolerate low dose weekly cisplatin for radiosensitizing given appropriate supportive therapy. Will Coordinate with Dr. Grajeda. PLAN: Will continue with weekly Cisplatin concurrent with radiation. Anticipate today's dose and next week RTC in 2 weeks to review toxicity Labs same day but do not anticipate additional chemotherapy HPI: CASE HISTORY: Reverse Chronological Order 01/20/2024 - Weekly Cisplatin 20 mg/m2 started with radiation 01/08/2024 - CT Chest: Subcentimeter noncalcified and partially calcified nodular opacities measuring up to 5 mm. Consider interval follow-up. Findings compatible with previous granulomatous disease. 12/17/2023 - CT A/P: Enhancing urothelial bladder lesion concerning for malignancy. No enlarged abdominal or pelvic lymph nodes. Other nonemergent findings. 12/05/2023 - Bladder tumor, transurethral resection: - High grade papillary urothelia carcinoma - Muscularis propria invasion identified 10/09/2023 - CT A/P: Small bowel obstruction with zone of transition in the lower mid abdomen. Large amount of stool within the cecum and throughout the colon. This can represent clinically has chronic constipation. Focal urinary bladder wall thickening adjacent to the right UVJ. Discrete uroepithelial lesion cannot be excluded. Prostatomegaly. 04/2023 - Non-STEMI - SOB and chest pain - obtuse marginal branch stented with drug eluting stent 10/23/2021-04/11/2023 - Mitomycin C - bladder instillation q 6 months 08/21/2021 - CT A/P: Enlarged left hemiscrotum with heterogenous hyperattenuation centrally and foci or air and fluid peripherally. The differential diagnosis would include testicular fracture versus malignancy. Presence of air could represent instrumentation or infection. Mildly enlarged heterogenous prostate gland. Dilated small bowel loops with rapid tapering and stool backup along suture lines at the rectosigmoid junction. 03/24/2021 - Urine, cystoscopic collected: Negative for malignant cells 11/23/2020 - Bladder tumor, biopsy: - Low grade papillary urothelial carcinoma, superficially sampled - No diagnostic lamina propria or detrusor muscle present. 08/08/2020-09/26/2020 - Bladder BCG instillation x 6 05/26/2020 - Bladder tumor, TURBT: - Predominantly low grade papillary urothelial carcinoma with minor component of high grade papillary urothelial carcinoma, non-invasive 03/09/2020 - US Kidneys/Bladder: No hydronephrosis or discrete nephrolithiasis. Probable small simple left renal cyst. Essentially unremarkable sonographic appearance of the bladder with mild postvoid residual. 11/04/2019 - Colonoscopy: No stricture visualized, anastomosis widely patent. The examination was otherwise normal. ~ - Colon cancer: partial colectomy with colorectal anastomosis Updated Visit, February 12, 2024: Kennedy returns today. He reports urinary incontinence, worse at night and disrupts his sleep. He asked about external catheters - I will discuss with care coordination. We also discussed trying adult diapers and/or menstrual pads. He also has some constipation and treats with laxatives. He has treatment today and next week - not anticipating additional chemotherapy. 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 Updated Visit, February 05, 2024: Kennedy Kong returns for follow-up and continued treatment. Overall he is tolerating treatment. He has had some diarrhea and has taken Kaopectate and has noticed some black stools. He denies fevers, chills, night sweats and signs/symptoms of infection. 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 Updated Visit, January 28, 2024: Mr. Kong returns for week 2 of cisplatin with radiation for his bladder cancer. He tolerated his first dose well. He reports that is wasn't as bad as I anticipated . He denies any nausea, vomiting, fever, chills, diarrhea, mouth sores or neuropathy. 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 Urinating fine. Has has a weak flow since this diagnosis, but this is unchanged. Updated Visit, January 20, 2024: Kennedy Kong returns for follow-up and to begin treatment. He starts radiation today. He denies fevers, chills, night sweats and signs/symptoms of infection. No bleeding or abnormal bruising. Overall he is doing fairly well today and wishes to proceed with treatment as planned. Initial Visit, January 03, 2024: Kennedy Kong presents today Hematology and Oncology evaluation, he is joined by his younger son, Dany. He is a 88 year old male who has bladder cancer with invasion into muscularis propria. He has a past history of colon cancer in the , s/p partial colectomy with colorectal anastomosis. He has received either gentamicin or mitomycin for bladder cancer previously. He has met with radiation, but has not had any treatment yet. I recommend cisplatin for him. He notes urination urgency due to difficulty emptying his bladder, worse at night. He has catheters at home and is capable of using them himself - I advised an ER visit if he has trouble with them. He is not a smoker but likely had past exposure to chemicals. 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 REVIEW OF SYSTEMS Per HPI and otherwise negative by full review of organ systems. ECOG PERFORMANCE STATUS: 0 PHYSICAL EXAMINATION: Vitals: BP 127/66 Pulse 71 Temp (Src) 97.3 (Temporal) Resp 16 Ht 5' 10.236 (1.78m) Wt 185 lb 13.6 oz (84.3kg) SpO2 99% BMI 26.49 kg/(m^2). Body surface area is 2.04 meters squared. Exam limited to gross visualization where appropriate. Gen.: This is an age-appropriate patient in no acute distress. Head: Appears atraumatic with no visible lesions. Eyes: Pupils equally round and reactive to light, extraocular muscles are intact. Neck: Supple. Respiratory: Appears to be respiring comfortably. Neurologic: Nonfocal to gross visualization. Alert and oriented 3. Psychiatric: No evidence of inappropriate anxiety or depression. Skin: Visible areas of skin without rash, lesions, wounds or petechiae. ALLERGIES: ALLERGIES Allergen Reactions Amoxicillin Other: See Comments Pt gets sores in mouth MEDICATIONS: levoFLOXacin (LEVAQUIN) 500 mg tablet^Take 1 tablet by mouth every afternoon.^Disp: ^Rfl: loperamide HCl (IMODIUM A-D ORAL)^Take by mouth.^Disp: ^Rfl: ondansetron (ZOFRAN) 8 mg tablet^Take 1 tablet by mouth every 8 hours as needed for nausea/vomiting.^Disp: 90 tablet^Rfl: 1 prochlorperazine (COMPAZINE) 10 mg tablet^Take 1 tablet by mouth every 6 hours as needed.^Disp: 100 tablet^Rfl: 1 CARROLL CHEWABLE ASPIRIN 81 mg chewable tablet^CHEW 1 TABLET ONCE DAILY^Disp: ^Rfl: carvedilol (COREG) 6.25 mg tablet^Take 6.25 mg by mouth two times a day with meals.^Disp: ^Rfl: clopidogrel (PLAVIX) 75 mg tablet^Take 75 mg by mouth once daily.^Disp: ^Rfl: rosuvastatin (CRESTOR) 40 mg tablet^Take 40 mg by mouth once daily.^Disp: ^Rfl: tamsulosin (FLOMAX) 0.4 mg^Take 0.4 mg by mouth once daily.^Disp: ^Rfl: docusate sodium (STOOL SOFTENER) 100 mg capsule^Take 100 mg by mouth as needed for constipation.^Disp: ^Rfl: Fish Oil-DHA-EPA 1,200-144-216 mg cap^Take by mouth once daily.^Disp: ^Rfl: Catheter ([facility]TERNAL CATH) misc^1 Device once daily.^Disp: 35 Each^Rfl: 0 LABORATORY VALUES: WBC (k/uL) Date Value 02/12/2024 5.64 RBC (m/uL) Date Value 02/12/2024 4.46 Hemoglobin (g/dL) Date Value 02/12/2024 13.1 Hematocrit (%) Date Value 02/12/2024 40.8 MCV (fL) Date Value 02/12/2024 91.5 MCH (pg) Date Value 02/12/2024 29.4 MCHC (g/dL) Date Value 02/12/2024 32.1 RDW-CV (%) Date Value 02/12/2024 13.2 Platelet Count (k/uL) Date Value 02/12/2024 188 MPV (fL) Date Value 02/12/2024 8.7 (L) Glucose (mg/dL) Date Value 02/12/2024 84 BUN (mg/dL) Date Value 02/12/2024 23 Creatinine (mg/dL) Date Value 02/12/2024 1.01 Sodium (mmol/L) Date Value 02/12/2024 142 Potassium (mmol/L) Date Value 02/12/2024 4.8 Chloride (mmol/L) Date Value 02/12/2024 105 CO2 (mmol/L) Date Value 02/12/2024 26 Protein, Total (g/dL) Date Value 02/12/2024 6.7 Albumin (g/dL) Date Value 02/12/2024 3.9 Calcium, Total (mg/dL) Date Value 02/12/2024 9.7 Alkaline Phosphatase (U/L) Date Value 02/12/2024 62 Bilirubin, Total (mg/dL) Date Value 02/12/2024 0.3 AST (U/L) Date Value 02/12/2024 14 ALT (U/L) Date Value 02/12/2024 18 DIAGNOSIS: (C67.0) 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) (primary encounter diagnosis) PAST MEDICAL HISTORY Diagnosis Date Basal cell cancer Colon cancer (HCC) Heart attack (HCC) 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) 01/05/2024 PAST SURGICAL HISTORY Procedure Laterality Date COLECTOMY PART W/ANASTOMOSIS 1990 followed with chemotx and radiation COLONSCOPY SCREENING HIGH RISK EXCISION HYDROCELE UNILAT 2006 left EXPLORATORY LAPAROTOMY CELIOTOMY W/WO BIOPSY SPX 2010 Laparotomy, exp for obstruction with partial bowel resection PAST SURGICAL HISTORY OF Basal cell carcinoma removed from right nares PAST SURGICAL HISTORY OF cardiac stent placement RMVL LENS MATERIAL PHACOFRAGMENTATION ASPIR 2010 Cataract Extraction bilateral Social History Tobacco Use Smoking status: Never Smokeless tobacco: Never Vaping Use Vaping Use: Never used Substance Use Topics Alcohol use: Yes Comment: beer rarely Drug use: No Comment: declines tx 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 Darryl Chaparro MD, CPE Hematology and Oncology Services Provided at: [facility], [place], [place] Scribe Attestation: This note was scribed by Bianca Hardwick on February 12, 2024 under the direction and supervision of Dr. Darryl Chaparro. I attest that all of the information documented is correct to the best of my knowledge. Provider Attestation: I, Darryl Chaparro MD, attest that all information documented by the above scribe is correct, and was supervised by me and under my direction. CC: Suzanne Estrella documented in this encounter [facility] 02-12-[address] [facility] 02-10-[address] [facility] 02-10-2024 History of Present illness Narrative Radiation Oncology - On Treatment Review (OTR) Note PATIENT NAME: Kennedy Kong PATIENT DIAGNOSIS: Bladder cancer, high-grade locally advanced T2b/T3b N0 M0 COURSE: definitive and concurrent chemotherapy Current dose: 3000 cGy in 15 fx Planned dose: 6000 cGy in 30 fx SUBJECTIVE: Having some increased stool frequency without diarrhea. No hematuria or dysuria. Some postvoid dribbling/incontinence stable. PHYSICAL EXAM: 02/10/24 0950 BP: 120/60 Pulse: 68 Resp: 18 Temp: 36.1 C (96.9 F) Weight: 86.1 kg (189 lb 12.8 oz) KPS: 80 General Appearance: Alert and oriented. No acute distress. IMAGING/LAB RESULTS: None TOXICITY ASSESSMENT (CTC v4.0): Fatigue:grade 1 Radiation Dermatitis: grade 0 - No symptoms Diarrhea:grade 1 Proctitis: grade 0 - No symptoms Urinary frequency: grade 1 - present Dysuria: grade 0 - No symptoms Urinary incontinence: grade 1 (Occasional (e.g., with coughing, sneezing, etc.), pads not indicated) Urinary retention: grade 1 - Urinary, suprapubic or intermittent catheter placement not indicated; able to void with some residual Treatment chart checked: Yes Patient treatment site reviewed and verified:Yes Port films reviewed and current:Yes Medications started: None ASSESSMENT/PLAN: Overall treatment tolerance has been good. Boost planning underway. Continue radiation as outlined. Suzanne Grajeda MD documented in this encounter [facility] 02-06-2024 Note HNO ID: [id number] Author: KAZ GRUBBS RN Service: ? Author Type: Registered Nurse Type: Progress Notes Filed: 02/06/2024 14:52 Note Text: Repeat CR 1.13 today reviewed with saman Sanderson to proceed with treatment. [facility] 02-06-2024 History of Present illness Narrative Repeat CR 1.13 today reviewed with saman Sanderson to proceed with treatment. documented in this encounter [facility] 02-05-2024 Note HNO ID: [id number] Author: GLENDA HOUGH RN Service: ? Author Type: Registered Nurse Type: Progress Notes Filed: 02/05/2024 11:28 Note Text: No tx today per CNP. [facility] IVF only. Glenda Hough RN [facility] 02-05-2024 History of Present illness Narrative No tx today per CNP. [facility] IVF only. Glenda Hough RN documented in this encounter [facility] 02-05-[address] [facility] 02-05-2024 History of Present illness Narrative Images from the original note were not included. NAME: Kennedy Kong [facility] NO.: [id number] DATE OF SERVICE: February 05, 2024 ([place]) Referring Provider: Dr. Andry Grajeda (Elements copied from Jasmine ChrissMARISOL note dated January 28, 2024, have been reviewed and updated where appropriate, and all reflect current assessment and medical decision making during today's encounter, February 05, 2024.) Additional Clinicians involved in Kennedy Kong's care: Nestor Estrella, Avel Heath, Kylie Dietrich CC: Follow up for treatment. DIAGNOSIS: High grade muscle invasive bladder cancer ASSESSMENT: 88 year old man with a history of colon cancer in his mid-50's treated with Chemo/RT followed by surgery complicated by several strictures and bowel obstructions requiring surgical intervention since. 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 He was treated with BCG through 09/2020. He then had a low-grade papillary bladder ca Nov 2020 with negative cytology. He was given Mitomycin-C every 6 months from October 2021 - March 2023. On December 05, 2023, was identified as having [id number] invasive papillary bladder cancer and has been referred to Radiation oncology and subsequently to me for an opinion regarding chemotherapy. 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 He would likely tolerate low dose weekly cisplatin for radiosensitizing given appropriate supportive therapy. Will Coordinate with Dr. Grajeda. PLAN: Will continue with weekly Cisplatin concurrent with radiation. Return in 1 weeks for continued treatment. HPI: CASE HISTORY: Reverse Chronological Order 01/20/2024 - Weekly Cisplatin 20 mg/m2 started with radiation 12/17/2023 - CT A/P: Enhancing urothelial bladder lesion concerning for malignancy. No enlarged abdominal or pelvic lymph nodes. Other nonemergent findings. 12/05/2023 - Bladder tumor, transurethral resection: - High grade papillary urothelia carcinoma - Muscularis propria invasion identified 10/09/2023 - CT A/P: Small bowel obstruction with zone of transition in the lower mid abdomen. Large amount of stool within the cecum and throughout the colon. This can represent clinically has chronic constipation. Focal urinary bladder wall thickening adjacent to the right UVJ. Discrete uroepithelial lesion cannot be excluded. Prostatomegaly. 04/2023 - Non-STEMI - SOB and chest pain - obtuse marginal branch stented with drug eluting stent 10/23/2021 - 04/11/2023 - Mitomycin C - bladder instillation q 6 months 08/21/2021 - CT A/P: Enlarged left hemiscrotum with heterogenous hyperattenuation centrally and foci or air and fluid peripherally. The differential diagnosis would include testicular fracture versus malignancy. Presence of air could represent instrumentation or infection. Mildly enlarged heterogenous prostate gland. Dilated small bowel loops with rapid tapering and stool backup along suture lines at the rectosigmoid junction. 03/24/2021 - Urine, cystoscopic collected: Negative for malignant cells 11/23/2020 - Bladder tumor, biopsy: - Low grade papillary urothelial carcinoma, superficially sampled - No diagnostic lamina propria or detrusor muscle present. 08/08/2020 - 09/26/2020 Bladder BCG instillation x 6 05/26/2020 - Bladder tumor, TURBT: - Predominantly low grade papillary urothelial carcinoma with minor component of high grade papillary urothelial carcinoma, non-invasive 03/09/2020 - US Kidneys/Bladder: No hydronephrosis or discrete nephrolithiasis. Probable small simple left renal cyst. Essentially unremarkable sonographic appearance of the bladder with mild postvoid residual. 11/04/2019 - Colonoscopy: No stricture visualized, anastomosis widely patent. The examination was otherwise normal. ~ - Colon cancer: partial colectomy with colorectal anastomosis Updated Visit, February 05, 2024: Kennedy Kong returns for follow-up and continued treatment. Overall he is tolerating treatment. He has had some diarrhea and has taken Kaopectate and has noticed some black stools. He denies fevers, chills, night sweats and signs/symptoms of infection. 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 Updated Visit, January 28, 2024: Mr. Kong returns for week 2 of cisplatin with radiation for his bladder cancer. He tolerated his first dose well. He reports that is wasn't as bad as I anticipated . He denies any nausea, vomiting, fever, chills, diarrhea, mouth sores or neuropathy. 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 Urinating fine. Has has a weak flow since this diagnosis, but this is unchanged. January 20, 2024 Visit with Shalonda Chery NP Note not complete at the time of my visit January 28, 2024 Initial Visit, January 03, 2024: Kennedy Kong presents today Hematology and Oncology evaluation, he is joined by his younger son, Dany. He is a 88 year old male who has bladder cancer with invasion into muscularis propria. He has a past history of colon cancer in the 1990s, s/p partial colectomy with colorectal anastomosis. He has received either gentamicin or mitomycin for bladder cancer previously. He has met with radiation, but has not had any treatment yet. I recommend cisplatin for him. He notes urination urgency due to difficulty emptying his bladder, worse at night. He has catheters at home and is capable of using them himself - I advised an ER visit if he has trouble with them. He is not a smoker but likely had past exposure to chemicals. 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 REVIEW OF SYSTEMS Per HPI and otherwise negative by full review of organ systems. ECOG PERFORMANCE STATUS: 0 PHYSICAL EXAMINATION: Vitals: BP 121/54 Pulse 63 Temp (Src) 97.2 (Temporal) Resp 16 Ht 5' 10.236 (1.78m) Wt 185 lb 6.5 oz (84.1kg) SpO2 98% BMI 26.42 kg/(m^2). Body surface area is 2.04 meters squared. General: Alert and oriented, no distress, pleasant and cooperative. Heart: Regular, normal S1 and S2, no murmurs, rubs, or gallops Lungs: Clear to auscultation bilaterally Abdomen: Benign Extremities: Feet/ankles without edema, posterior tibial pulses full and symmetrical ALLERGIES: ALLERGIES Allergen Reactions Amoxicillin Other: See Comments Pt gets sores in mouth MEDICATIONS: levoFLOXacin (LEVAQUIN) 500 mg tablet Take 1 tablet by mouth every afternoon. loperamide HCl (IMODIUM A-D ORAL) Take by mouth. ondansetron (ZOFRAN) 8 mg tablet Take 1 tablet by mouth every 8 hours as needed for nausea/vomiting. prochlorperazine (COMPAZINE) 10 mg tablet Take 1 tablet by mouth every 6 hours as needed. CARROLL CHEWABLE ASPIRIN 81 mg chewable tablet CHEW 1 TABLET ONCE DAILY carvedilol (COREG) 6.25 mg tablet Take 6.25 mg by mouth two times a day with meals. clopidogrel (PLAVIX) 75 mg tablet Take 75 mg by mouth once daily. rosuvastatin (CRESTOR) 40 mg tablet Take 40 mg by mouth once daily. tamsulosin (FLOMAX) 0.4 mg Take 0.4 mg by mouth once daily. docusate sodium (STOOL SOFTENER) 100 mg capsule Take 100 mg by mouth as needed for constipation. Fish Oil-DHA-EPA 1,200-144-216 mg cap Take by mouth once daily. LABORATORY VALUES: WBC (k/uL) Date Value 02/04/2024 6.42 RBC (m/uL) Date Value 02/04/2024 4.32 Hemoglobin (g/dL) Date Value 02/04/2024 12.8 (L) Hematocrit (%) Date Value 02/04/2024 39.8 MCV (fL) Date Value 02/04/2024 92.1 MCH (pg) Date Value 02/04/2024 29.6 MCHC (g/dL) Date Value 02/04/2024 32.2 RDW-CV (%) Date Value 02/04/2024 13.2 Platelet Count (k/uL) Date Value 02/04/2024 181 MPV (fL) Date Value 02/04/2024 8.9 (L) Glucose (mg/dL) Date Value 02/04/2024 137 (H) BUN (mg/dL) Date Value 02/04/2024 32 (H) Creatinine (mg/dL) Date Value 02/04/2024 1.38 (H) Sodium (mmol/L) Date Value 02/04/2024 138 Potassium (mmol/L) Date Value 02/04/2024 4.8 Chloride (mmol/L) Date Value 02/04/2024 104 CO2 (mmol/L) Date Value 02/04/2024 24 Protein, Total (g/dL) Date Value 02/04/2024 6.9 Albumin (g/dL) Date Value 02/04/2024 4.0 Calcium, Total (mg/dL) Date Value 02/04/2024 9.7 Alkaline Phosphatase (U/L) Date Value 02/04/2024 68 Bilirubin, Total (mg/dL) Date Value 02/04/2024 0.3 AST (U/L) Date Value 02/04/2024 14 ALT (U/L) Date Value 02/04/2024 15 DIAGNOSIS: (C67.0) 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) (primary encounter diagnosis) PAST MEDICAL HISTORY Diagnosis Date Basal cell cancer Colon cancer (HCC) Heart attack (HCC) 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) 01/05/2024 PAST SURGICAL HISTORY Procedure Laterality Date COLECTOMY PART W/ANASTOMOSIS 1990 followed with chemotx and radiation COLONSCOPY SCREENING HIGH RISK EXCISION HYDROCELE UNILAT 2006 left EXPLORATORY LAPAROTOMY CELIOTOMY W/WO BIOPSY SPX 2010 Laparotomy, exp for obstruction with partial bowel resection PAST SURGICAL HISTORY OF Basal cell carcinoma removed from right nares PAST SURGICAL HISTORY OF cardiac stent placement RMVL LENS MATERIAL PHACOFRAGMENTATION ASPIR 2010 Cataract Extraction bilateral Social History Tobacco Use Smoking status: Never Smokeless tobacco: Never Vaping Use Vaping Use: Never used Substance Use Topics Alcohol use: Yes Comment: beer rarely Drug use: No Comment: declines tx 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 FAMILY HISTORY Problem Relation Age of Onset Diabetes Mother Colon Cancer Father Ovarian cancer Sister Colon Cancer Brother Shalonda Chery APRN.[employer] Hematology and Oncology Services Provided at: [place], [place] CC: Suzanne Estrella documented in this encounter [facility] 02-04-2024 Miscellaneous Notes Pt already scheduled to see Shalonda tomorrow for RV and treatment. Shalonda: Please see Jasmine's message below. Sherron Coughlin RN ----- Message from Jasmine Jansen PA-C sent at 02/04/2024 3:41 PM EDT ----- He should probably get some hydration documented in this encounter [facility] 02-04-2024 Nurse Note Kennedy Kong presents in office today for: Lab and radiation therapy. Ordering Provider: Andry Grajeda M.D. Test (s) ordered: CBC CMP mag Method for obtaining blood: Phlebotomy was performed, accessing right antecubital vein. Needle removed intact. Dressing secured. Mr. Kong states he had diarrhea once this a.m. and his stool was black. He states he's never had this before. He would like labs drawn today. VS: BP 101/64, P 74, R16, T97.6, SpO2 97% RA resting. He denies lightheadedness or dizziness. States he ate breakfast and lunch today per usual. Dr. Grajeda notified of the above and would like labs ordered for tomorrow by med onc drawn today. Ok to proceed with radiation as planned. Patient denies discomfort, dizziness, light-headedness or weakness and left the department without assist. documented in this encounter [facility] 02-03-[address] [facility] 02-03-2024 History of Present illness Narrative Radiation Oncology - On Treatment Review (OTR) Note PATIENT NAME: Kennedy Kong PATIENT DIAGNOSIS: Bladder cancer, high-grade locally advanced T2b/T3b N0 M0 COURSE: definitive and concurrent chemotherapy Current dose: 2000 cGy in 10 fx Planned dose: 6000 cGy in 30 fx SUBJECTIVE: Patient had some diarrhea end of the week and over the weekend. Did use Imodium with improvement. Patient thinks he may have had a bad batch of salad. Denies vomiting. Denies abdominal pain. PHYSICAL EXAM: KPS: 80 General Appearance: Alert and oriented. No acute distress. IMAGING/LAB RESULTS: None TOXICITY ASSESSMENT (CTC v4.0): Fatigue:grade 0 - No symptoms Radiation Dermatitis: grade 0 - No symptoms Diarrhea:grade 0 - No symptoms Proctitis: grade 0 - No symptoms Urinary frequency: grade 1 - present Dysuria: grade 0 - No symptoms Urinary incontinence: grade 1 (Occasional (e.g., with coughing, sneezing, etc.), pads not indicated) Urinary retention: grade 1 - Urinary, suprapubic or intermittent catheter placement not indicated; able to void with some residual Treatment chart checked: Yes Patient treatment site reviewed and verified:Yes Port films reviewed and current:Yes Medications started: None ASSESSMENT/PLAN: Discussed dietary change and Imodium use for diarrhea. Continue radiation as outlined. Suzanne Grajeda MD documented in this encounter [facility] 01-31-[address] [facility] 01-31-2024 History of Present illness Narrative .PSYCHOSOCIAL SCREENING ASSESSMENT Date of Service: February 03, 2024 Kennedy Kong is a 88 year old male being seen for initial social work assessment. Diagnosis: Bladder Cancer Recurrence Primary Oncologist: Dr. Darryl Chaparro Radiation Oncologist: Dr. Denisse Grajeda Goals of Care: Curative intent Today's visit includes: self/patient Family History of Cancer: Father and Sibling(s) SUPPORT NETWORK: Social Connections: Not on file Marital status: Parent(s): Mother is and Father is Child/Children: Yes. How many? 6 (one son Rios is ) director of patient care arrangements needed: Na Grandchild(fredis): > 5 Home Health Provider: No Community Services: No Jennifer Identified: Yes Pentecostal/Spirituality: Pentecostalism Are these practices or beliefs that may affect or influence treatment? Yes EMPLOYMENT/FINANCIAL/HEALTH INSURANCE: Employment: Retired Income source: Social Security Insurance: Medicare with co-insurance Prescription coverage: Yes Is the patient appropriate for referral to [facility] Assistance program? N/A Financial Distress: No FOOD INSECURITY Within the past year, have you worried about how you would buy or obtain food? No LIVING ARRANGEMENTS: Type: House- independent ranch Resides with: Alone Transportation Needs: Not on file FUNCTIONAL STATUS: Cognitive limitations: none Physical limitations: none Language barrier: No Hearing Impaired: No Speech Impaired: No Visual Impairments: No Special considerations/accommodations needed: No HEALTH LITERACY: Do you have difficulty understanding medical instructions or other written materials you receive from you doctor or pharmacy? Not asked Do have difficulty filling out medical forms by yourself? Not asked The following interventions were put into place: NA MEDICATION ADHERENCE: Within the past 2 weeks, have you had difficulty remembering to take your medicine? Not asked Within the past 2 weeks, did you ever miss taking your medications for reasons other than forgetting? No The following interventions were put into place: NA MENTAL HEALTH HISTORY: No History of combat/trauma: No Intimate Partner Violence: Not on file Substance Use and Treatment History: denied History of Abuse: No Issues with: Sleep:No Eating:No Exercising: No Stress Management: No Advance Care Planning ADVANCE DIRECTIVES/LEGAL DOCUMENTS: Living Will: Yes Scanned into EPIC: No Health Care Durable Power of Head Up Operator Helper: Yes Scanned into EPIC: No Guardianship: NA Scanned into EPIC:NA Reasons Advanced Directives were not Addressed: Other Patient reports that he has completed a Living Will and DPOA-HC. SW requested a copy. Patient states that he does not know where those documents would be kept. COPING STATUS: Stress: Not on file Coping Strengths: supportive relationships with immediate family successful managing past crises hopefulness self advocate strong problem-solving skills ability to plan able to follow direction consistently over time able to communicate effectively Current affect/mood: appropriate History of Loss: Yes, , son and parents Adjustment to diagnosis: reflecting understanding and responding appropriately BARRIERS/CARE CHALLENGES: None Are barriers/care challenges identified likely to have an impact on the patient's quality of life during treatment? No INTERVENTIONS/REFERRALS TO BE PROVIDED: Continue follow up as needed Resources and Referrals: Internal: NA External: Other FACT (Financial Assistance for Cancer Treatment) CLINICAL IMPRESSION: Patient is an 88 year old male with a diagnosis of bladder cancer. Patient lives alone in [place], [place]. Patient has children and grandchildren who are involved and supportive. Patient is retired from [employer]. 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 SW shared with the Patient the role of an Oncology SW. Discussed FACT (Financial Assistance for Cancer Treatment) and this SW completed an intake application. SW will complete monthly mileage logs and turn into FACT for reimbursement. Patient denied any immediate psychosocial needs or concerns.SW will remain available and will follow up as appropriate. Psychosocial Risk Criteria If positive for one or more of the following risk criteria, follow up every 30 days Age: >70 Mental Health: NA Practical Needs: N/A PLAN: Follow up PRN Follow up appointment with SW in: PRN Assigned SW listed in Care Team tab: Yes INES Shaw documented in this encounter [facility] 01-29-2024 Miscellaneous Notes Changed lasix to 10 mg. Patient is having an issue with excessive urinary incontinence per radiation department. Patient did tell them he has issues on chemo treatment day due to lasix we give him with his weekly Cisplatin. Patient received 40mg IV with chemo. Wondering if on chemo treatment days we could decrease or omit the lasix? Thanks Andrew Love, RN documented in this encounter [facility] 01-28-[address] [facility] 01-28-2024 History of Present illness Narrative Radiation Oncology - On Treatment Review (OTR) Note PATIENT NAME: Kennedy Kong PATIENT DIAGNOSIS: Bladder cancer, high-grade locally advanced T2b/T3b N0 M0 COURSE: definitive and concurrent chemotherapy Current dose: 1200 cGy in 6 fx Planned dose: 6000 cGy in 30 fx SUBJECTIVE: Doing well. Some fatigue. No dysuria. No hematuria. PHYSICAL EXAM: KPS: 80 General Appearance: Alert and oriented. No acute distress. IMAGING/LAB RESULTS: None TOXICITY ASSESSMENT (CTC v4.0): Fatigue:grade 0 - No symptoms Radiation Dermatitis: grade 0 - No symptoms Diarrhea:grade 0 - No symptoms Proctitis: grade 0 - No symptoms Urinary frequency: grade 1 - present Dysuria: grade 0 - No symptoms Urinary incontinence: grade 1 (Occasional (e.g., with coughing, sneezing, etc.), pads not indicated) Urinary retention: grade 1 - Urinary, suprapubic or intermittent catheter placement not indicated; able to void with some residual Treatment chart checked: Yes Patient treatment site reviewed and verified:Yes Port films reviewed and current:Yes Medications started: None ASSESSMENT/PLAN: Patient doing well. Chart and imaging reviewed. Continue radiation as outlined. Suzanne Grajeda MD documented in this encounter [facility] 01-28-2024 History of Present illness Narrative Images from the original note were not included. NAME: Kennedy Kong [facility] NO.: [id number] DATE OF SERVICE: January 28, 2024 (Nicky) Referring Provider: Dr. Andry Grajeda (Elements copied from Dr. Chaparro's note dated January 03, 2024, have been reviewed and updated where appropriate, and all reflect current assessment and medical decision making during today's encounter, January 28, 2024) Additional Clinicians involved in Kennedy Kong's care: Nestor Estrella, Avel Heath, Kylie Dietrich CC: follow up for treatment DIAGNOSIS: High grade muscle invasive bladder cancer ASSESSMENT: 88 year old man with a history of colon cancer in his mid-50's treated with Chemo/RT followed by surgery complicated by several strictures and bowel obstructions requiring surgical intervention since. 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 He was treated with BCG through 09/2020. He then had a low-grade papillary bladder ca Nov 2020 with negative cytology. He was given Mitomycin-C every 6 months from October 2021 - March 2023. On December 05, 2023, was identified as having [id number] invasive papillary bladder cancer and has been referred to Radiation oncology and subsequently to me for an opinion regarding chemotherapy. 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 He would likely tolerate low dose weekly cisplatin for radiosensitizing given appropriate supportive therapy. Will Coordinate with Dr. Grajeda. HPI: CASE HISTORY: Reverse Chronological Order 01/20/2024 - Weekly Cisplatin 20 mg/m2 started with radiation 12/17/2023 - CT A/P: Enhancing urothelial bladder lesion concerning for malignancy. No enlarged abdominal or pelvic lymph nodes. Other nonemergent findings. 12/05/2023 - Bladder tumor, transurethral resection: - High grade papillary urothelia carcinoma - Muscularis propria invasion identified 10/09/2023 - CT A/P: Small bowel obstruction with zone of transition in the lower mid abdomen. Large amount of stool within the cecum and throughout the colon. This can represent clinically has chronic constipation. Focal urinary bladder wall thickening adjacent to the right UVJ. Discrete uroepithelial lesion cannot be excluded. Prostatomegaly. 04/2023 - Non-STEMI - SOB and chest pain - obtuse marginal branch stented with drug eluting stent 10/23/2021 - 04/11/2023 - Mitomycin C - bladder instillation q 6 months 08/21/2021 - CT A/P: Enlarged left hemiscrotum with heterogenous hyperattenuation centrally and foci or air and fluid peripherally. The differential diagnosis would include testicular fracture versus malignancy. Presence of air could represent instrumentation or infection. Mildly enlarged heterogenous prostate gland. Dilated small bowel loops with rapid tapering and stool backup along suture lines at the rectosigmoid junction. 03/24/2021 - Urine, cystoscopic collected: Negative for malignant cells 11/23/2020 - Bladder tumor, biopsy: - Low grade papillary urothelial carcinoma, superficially sampled - No diagnostic lamina propria or detrusor muscle present. 08/08/2020 - 09/26/2020 Bladder BCG instillation x 6 05/26/2020 - Bladder tumor, TURBT: - Predominantly low grade papillary urothelial carcinoma with minor component of high grade papillary urothelial carcinoma, non-invasive 03/09/2020 - US Kidneys/Bladder: No hydronephrosis or discrete nephrolithiasis. Probable small simple left renal cyst. Essentially unremarkable sonographic appearance of the bladder with mild postvoid residual. 11/04/2019 - Colonoscopy: No stricture visualized, anastomosis widely patent. The examination was otherwise normal. ~ - Colon cancer: partial colectomy with colorectal anastomosis Updated Visit, January 28, 2024: Mr. Kong returns for week 2 of cisplatin with radiation for his bladder cancer. He tolerated his first dose well. He reports that is wasn't as bad as I anticipated . He denies any nausea, vomiting, fever, chills, diarrhea, mouth sores or neuropathy. 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 Urinating fine. Has has a weak flow since this diagnosis, but this is unchanged. January 20, 2024 Visit with Shalonda Chery NP Note not complete at the time of my visit January 28, 2024 Initial Visit, January 03, 2024: Kennedy Kong presents today Hematology and Oncology evaluation, he is joined by his younger son, Dany. He is a 88 year old male who has bladder cancer with invasion into muscularis propria. He has a past history of colon cancer in the , s/p partial colectomy with colorectal anastomosis. He has received either gentamicin or mitomycin for bladder cancer previously. He has met with radiation, but has not had any treatment yet. I recommend cisplatin for him. He notes urination urgency due to difficulty emptying his bladder, worse at night. He has catheters at home and is capable of using them himself - I advised an ER visit if he has trouble with them. He is not a smoker but likely had past exposure to chemicals. 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 REVIEW OF SYSTEMS Per HPI and otherwise negative by full review of organ systems. ECOG PERFORMANCE STATUS: 0 PHYSICAL EXAMINATION: Vitals: BP 112/60 Pulse 75 Temp (Src) 97.5 (Temporal) Resp 16 Ht 5' 10.236 (1.78m) Wt 186 lb 1.1 oz (84.4kg) SpO2 98% BMI 26.52 kg/(m^2). Body surface area is 2.05 meters squared. General: Alert and oriented, no distress, pleasant and cooperative. Heart: Regular, normal S1 and S2, no murmurs, rubs, or gallops Lungs: Clear to auscultation bilaterally Abdomen: Benign Extremities: Feet/ankles without edema, posterior tibial pulses full and symmetrical ALLERGIES: ALLERGIES Allergen Reactions Amoxicillin Other: See Comments Pt gets sores in mouth MEDICATIONS: ondansetron (ZOFRAN) 8 mg tablet Take 1 tablet by mouth every 8 hours as needed for nausea/vomiting. prochlorperazine (COMPAZINE) 10 mg tablet Take 1 tablet by mouth every 6 hours as needed. CARROLL CHEWABLE ASPIRIN 81 mg chewable tablet CHEW 1 TABLET ONCE DAILY carvedilol (COREG) 6.25 mg tablet Take 6.25 mg by mouth two times a day with meals. clopidogrel (PLAVIX) 75 mg tablet Take 75 mg by mouth once daily. rosuvastatin (CRESTOR) 40 mg tablet Take 40 mg by mouth once daily. tamsulosin (FLOMAX) 0.4 mg Take 0.4 mg by mouth once daily. docusate sodium (STOOL SOFTENER) 100 mg capsule Take 100 mg by mouth as needed for constipation. Fish Oil-DHA-EPA 1,200-144-216 mg cap Take by mouth once daily. LABORATORY VALUES: WBC (k/uL) Date Value 01/28/2024 6.84 RBC (m/uL) Date Value 01/28/2024 4.01 (L) Hemoglobin (g/dL) Date Value 01/28/2024 12.1 (L) Hematocrit (%) Date Value 01/28/2024 37.3 (L) MCV (fL) Date Value 01/28/2024 93.0 MCH (pg) Date Value 01/28/2024 30.2 MCHC (g/dL) Date Value 01/28/2024 32.4 RDW-CV (%) Date Value 01/28/2024 13.2 Platelet Count (k/uL) Date Value 01/28/2024 172 MPV (fL) Date Value 01/28/2024 8.5 (L) Glucose (mg/dL) Date Value 01/28/2024 85 BUN (mg/dL) Date Value 01/28/2024 23 Creatinine (mg/dL) Date Value 01/28/2024 1.06 Sodium (mmol/L) Date Value 01/28/2024 139 Potassium (mmol/L) Date Value 01/28/2024 4.7 Chloride (mmol/L) Date Value 01/28/2024 106 (H) CO2 (mmol/L) Date Value 01/28/2024 26 Protein, Total (g/dL) Date Value 01/28/2024 6.8 Albumin (g/dL) Date Value 01/28/2024 4.1 Calcium, Total (mg/dL) Date Value 01/28/2024 9.4 Alkaline Phosphatase (U/L) Date Value 01/28/2024 70 Bilirubin, Total (mg/dL) Date Value 01/28/2024 0.3 AST (U/L) Date Value 01/28/2024 21 ALT (U/L) Date Value 01/28/2024 25 DIAGNOSIS: (C67.0) 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) (primary encounter diagnosis) Plan: COMP METABOLIC PANEL, MAGNESIUM BLD, CBC + DIFF, COMP METABOLIC PANEL, MAGNESIUM BLD PAST MEDICAL HISTORY Diagnosis Date Basal cell cancer Colon cancer (HCC) Heart attack (HCC) 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) 01/05/2024 PAST SURGICAL HISTORY Procedure Laterality Date COLECTOMY PART W/ANASTOMOSIS 1990 followed with chemotx and radiation COLONSCOPY SCREENING HIGH RISK EXCISION HYDROCELE UNILAT 2006 left EXPLORATORY LAPAROTOMY CELIOTOMY W/WO BIOPSY SPX 2009 Laparotomy, exp for obstruction with partial bowel resection PAST SURGICAL HISTORY OF Basal cell carcinoma removed from right nares PAST SURGICAL HISTORY OF cardiac stent placement RMVL LENS MATERIAL PHACOFRAGMENTATION ASPIR 2010 Cataract Extraction bilateral Social History Tobacco Use Smoking status: Never Smokeless tobacco: Never Vaping Use Vaping Use: Never used Substance Use Topics Alcohol use: Yes Comment: beer rarely Drug use: No Comment: declines tx 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 FAMILY HISTORY Problem Relation Age of Onset Diabetes Mother Colon Cancer Father Ovarian cancer Sister Colon Cancer Brother I spent a total of 30 minutes on the date of the service which included preparing to see the patient, [id number] patient care, completing clinical documentation, obtaining and/or reviewing separately obtained history, performing a medically appropriate examination, counseling and educating the patient/family/caregiver, ordering medications, tests, or procedures, independently interpreting results (not separately reported), and communicating results to the patient/family/caregiver. Jasmine Jansen PA-C Hematology and Oncology Services Provided at: [place], [place] CC: Suzanne Estrella documented in this encounter [facility] 01-28-[address] [facility] 01-24-2024 Miscellaneous Notes CYCLE 1/DAY 1 POST TREATMENT CALL Today's date: January 24, 2024 Treatment Regimen: Cisplatin [id number] Date: 01/20/24 Called patient to follow-up on symptom management. Spoke with patient. SYMPTOM ASSESSMENT Neuro: None CV/Resp: None GI/: Appetite: no changes in appetite, appetite good, Fluid intake: Reports that he is trying to drink at least 30-40 oz of water per day. Encouraged pt to drink more if he could., and Bladder/Urinary Changes: No new changes. States his urine stream is weak, but states that it has been that way since his procedure w/ Dr Dietrich. Integument: None Activity: Patient reported decreased energy level Do you need to take naps? Yes; Do you wake up feeling rested? Yes Pain: No=0 (pain 0 on a scale of 0-10). Fever: No Chills: No Pt cancelled his appointment on 01/28/24, due to the eclipse. Any new referrals needed? No Reinforced CURRENT treatment education based on current and anticipated symptoms. Discussed port/line care and patient verbalizes understanding: Not Applicable Patient instructed to contact office or after hours Hematology/Oncology fellow for: temperature ? 100.4; questions or concerns. Patient verbalized understanding of when to seek medical attention and after hours number protocol. Sherron Coughlin RN documented in this encounter [facility] 01-20-[address] [facility] 01-20-2024 History of Present illness Narrative Radiation Oncology - On Treatment Review (OTR) Note PATIENT NAME: Kennedy Kong PATIENT DIAGNOSIS: Bladder cancer, high-grade locally advanced T2b/T3b N0 M0 COURSE: definitive and concurrent chemotherapy Current dose: 200 cGy in 1 fx Planned dose: 6000 cGy in 30 fx SUBJECTIVE: Here to start radiation, doing well. Having some issues with slower urinary stream. No dysuria. No hematuria. PHYSICAL EXAM: KPS: 80 General Appearance: Alert and oriented. No acute distress. IMAGING/LAB RESULTS: None TOXICITY ASSESSMENT (CTC v4.0): Fatigue:grade 0 - No symptoms Radiation Dermatitis: grade 0 - No symptoms Diarrhea:grade 0 - No symptoms Proctitis: grade 0 - No symptoms Urinary frequency: grade 1 - present Dysuria: grade 0 - No symptoms Urinary incontinence: grade 1 (Occasional (e.g., with coughing, sneezing, etc.), pads not indicated) Urinary retention: grade 1 - Urinary, suprapubic or intermittent catheter placement not indicated; able to void with some residual Treatment chart checked: Yes Patient treatment site reviewed and verified:Yes Port films reviewed and current:Yes Medications started: None ASSESSMENT/PLAN: Patient starting radiation today. Plan of care and expectations again reviewed. Plan, MU calculations and qa report reviewed. Initial imaging including cone beam ct and verification reviewed and approved. First treatment given. Continue radiation as prescribed. Suzanne Grajeda MD documented in this encounter [facility] 01-20-2024 Nurse Note Back office UA test performed. Results entered in [employer] and doctor notified. Taina Love MA documented in this encounter [facility] 01-20-2024 Miscellaneous Notes 1st report of treatment-Benefit investigation complete. Patient is active with Medicare, LOC 80%, $240 deductible has $0 remaining. He carries Plan G [employer] supplement which covers the 20% coinsurance. Estimate shows patient financial responsibility is $0 for each treatment in 2023. until oop max is reached. Called the patient to discuss this but unfortunately his phone just rang and rang. No voicemail option. I will try and connect with him later regarding this. No ben openings at this time but patient should not need since he will be 100% covered. documented in this encounter [facility] 01-20-[address] [facility] 01-20-2024 History of Present illness Narrative Images from the original note were not included. NAME: Kennedy Kong [facility] NO.: [id number] DATE OF SERVICE: January 20, 2024 (Toñito) (Elements copied from Dr. Chaparro note dated January 02, have been reviewed and updated where appropriate, and all reflect current assessment and medical decision making during today's encounter, January 20, 2024.) Referring Provider: Dr. Andry Grajeda Additional Clinicians involved in Kennedy Kong's care: Nestor Estrella, Avel Heath, Kylie Dietrich DIAGNOSIS: ASSESSMENT: 88 year old man with a history of colon cancer in his mid-50's treated with Chemo/RT followed by surgery complicated by several strictures and bowel obstructions requiring surgical intervention since. 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 He was treated with BCG through 09/2020. He then had a low-grade papillary bladder ca Nov 2020 with negative cytology. He was given Mitomycin-C every 6 months from October 2021 - March 2023. On December 05, 2023, was identified as having [id number] invasive papillary bladder cancer and has been referred to Radiation oncology and subsequently to me for an opinion regarding chemotherapy. 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 He would likely tolerate low dose weekly cisplatin for radiosensitizing given appropriate supportive therapy. Will Coordinate with Dr. Grajeda. PLAN: Will start treatment with weekly Cisplatin concurrent with radiation. Return in 8 days for continued treatment. HPI: CASE HISTORY: Reverse Chronological Order 12/17/2023 - CT A/P: Enhancing urothelial bladder lesion concerning for malignancy. No enlarged abdominal or pelvic lymph nodes. Other nonemergent findings. 12/05/2023 - Bladder tumor, transurethral resection: - High grade papillary urothelia carcinoma - Muscularis propria invasion identified 10/09/2023 - CT A/P: Small bowel obstruction with zone of transition in the lower mid abdomen. Large amount of stool within the cecum and throughout the colon. This can represent clinically has chronic constipation. Focal urinary bladder wall thickening adjacent to the right UVJ. Discrete uroepithelial lesion cannot be excluded. Prostatomegaly. 04/2023 - Non-STEMI - SOB and chest pain - obtuse marginal branch stented with drug eluting stent 10/23/2021 - 04/11/2023 - Mitomycin C - bladder instillation q 6 months 08/21/2021 - CT A/P: Enlarged left hemiscrotum with heterogenous hyperattenuation centrally and foci or air and fluid peripherally. The differential diagnosis would include testicular fracture versus malignancy. Presence of air could represent instrumentation or infection. Mildly enlarged heterogenous prostate gland. Dilated small bowel loops with rapid tapering and stool backup along suture lines at the rectosigmoid junction. 03/24/2021 - Urine, cystoscopic collected: Negative for malignant cells 11/23/2020 - Bladder tumor, biopsy: - Low grade papillary urothelial carcinoma, superficially sampled - No diagnostic lamina propria or detrusor muscle present. 08/08/2020 - 09/26/2020 Bladder BCG instillation x 6 05/26/2020 - Bladder tumor, TURBT: - Predominantly low grade papillary urothelial carcinoma with minor component of high grade papillary urothelial carcinoma, non-invasive 03/09/2020 - US Kidneys/Bladder: No hydronephrosis or discrete nephrolithiasis. Probable small simple left renal cyst. Essentially unremarkable sonographic appearance of the bladder with mild postvoid residual. 11/04/2019 - Colonoscopy: No stricture visualized, anastomosis widely patent. The examination was otherwise normal. ~ - Colon cancer: partial colectomy with colorectal anastomosis Updated Visit, January 20, 2024: Kennedy Kong returns for follow-up and to begin treatment. He starts radiation today. He denies fevers, chills, night sweats and signs/symptoms of infection. No bleeding or abnormal bruising. Overall he is doing fairly well today and wishes to proceed with treatment as planned. Initial Visit, January 03, 2024: Kennedy Kong presents today Hematology and Oncology evaluation, he is joined by his younger son, Dany. He is a 88 year old male who has bladder cancer with invasion into muscularis propria. He has a past history of colon cancer in the , s/p partial colectomy with colorectal anastomosis. He has received either gentamicin or mitomycin for bladder cancer previously. He has met with radiation, but has not had any treatment yet. I recommend cisplatin for him. He notes urination urgency due to difficulty emptying his bladder, worse at night. He has catheters at home and is capable of using them himself - I advised an ER visit if he has trouble with them. He is not a smoker but likely had past exposure to chemicals. 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 REVIEW OF SYSTEMS Per HPI and otherwise negative by full review of organ systems. ECOG PERFORMANCE STATUS: 0 PHYSICAL EXAMINATION: Vitals: BP 100/50 Pulse 69 Temp (Src) 97.8 (Temporal) Resp 16 Ht 5' 10 (1.78m) Wt 186 lb 11.7 oz (84.7kg) SpO2 98% BMI 26.79 kg/(m^2). Body surface area is 2.05 meters squared. Exam limited to gross visualization where appropriate. Gen.: This is an age-appropriate patient in no acute distress. Head: Appears atraumatic with no visible lesions. Eyes: Pupils equally round and reactive to light, extraocular muscles are intact. Neck: Supple. Respiratory: Appears to be respiring comfortably. Neurologic: Nonfocal to gross visualization. Alert and oriented 3. Psychiatric: No evidence of inappropriate anxiety or depression. Skin: Visible areas of skin without rash, lesions, wounds or petechiae. ALLERGIES: ALLERGIES Allergen Reactions Amoxicillin Other: See Comments Pt gets sores in mouth MEDICATIONS: ondansetron (ZOFRAN) 8 mg tablet Take 1 tablet by mouth every 8 hours as needed for nausea/vomiting. prochlorperazine (COMPAZINE) 10 mg tablet Take 1 tablet by mouth every 6 hours as needed. CARROLL CHEWABLE ASPIRIN 81 mg chewable tablet CHEW 1 TABLET ONCE DAILY carvedilol (COREG) 6.25 mg tablet Take 6.25 mg by mouth two times a day with meals. clopidogrel (PLAVIX) 75 mg tablet Take 75 mg by mouth once daily. rosuvastatin (CRESTOR) 40 mg tablet Take 40 mg by mouth once daily. tamsulosin (FLOMAX) 0.4 mg Take 0.4 mg by mouth once daily. docusate sodium (STOOL SOFTENER) 100 mg capsule Take 100 mg by mouth as needed for constipation. Fish Oil-DHA-EPA 1,200-144-216 mg cap Take by mouth once daily. LABORATORY VALUES: WBC (k/uL) Date Value 01/20/2024 6.05 RBC (m/uL) Date Value 01/20/2024 4.19 (L) Hemoglobin (g/dL) Date Value 01/20/2024 12.4 (L) Hematocrit (%) Date Value 01/20/2024 39.2 MCV (fL) Date Value 01/20/2024 93.6 MCH (pg) Date Value 01/20/2024 29.6 MCHC (g/dL) Date Value 01/20/2024 31.6 RDW-CV (%) Date Value 01/20/2024 13.2 Platelet Count (k/uL) Date Value 01/20/2024 165 MPV (fL) Date Value 01/20/2024 8.7 (L) Glucose (mg/dL) Date Value 01/03/2024 100 (H) BUN (mg/dL) Date Value 01/03/2024 21 Creatinine (mg/dL) Date Value 01/03/2024 1.08 Sodium (mmol/L) Date Value 01/03/2024 138 Potassium (mmol/L) Date Value 01/03/2024 4.3 Chloride (mmol/L) Date Value 01/03/2024 104 CO2 (mmol/L) Date Value 01/03/2024 26 Protein, Total (g/dL) Date Value 01/03/2024 6.8 Albumin (g/dL) Date Value 01/03/2024 3.9 Calcium, Total (mg/dL) Date Value 01/03/2024 9.5 Alkaline Phosphatase (U/L) Date Value 01/03/2024 68 Bilirubin, Total (mg/dL) Date Value 01/03/2024 0.2 AST (U/L) Date Value 01/03/2024 14 ALT (U/L) Date Value 01/03/2024 17 DIAGNOSIS: (C67.0) 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) (primary encounter diagnosis) PAST MEDICAL HISTORY Diagnosis Date Basal cell cancer Colon cancer (HCC) Heart attack (HCC) 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) 01/05/2024 PAST SURGICAL HISTORY Procedure Laterality Date COLECTOMY PART W/ANASTOMOSIS 1990 followed with chemotx and radiation COLONSCOPY SCREENING HIGH RISK EXCISION HYDROCELE UNILAT 2006 left EXPLORATORY LAPAROTOMY CELIOTOMY W/WO BIOPSY SPX 2009 Laparotomy, exp for obstruction with partial bowel resection PAST SURGICAL HISTORY OF Basal cell carcinoma removed from right nares PAST SURGICAL HISTORY OF cardiac stent placement RMVL LENS MATERIAL PHACOFRAGMENTATION ASPIR 2010 Cataract Extraction bilateral Social History Tobacco Use Smoking status: Never Smokeless tobacco: Never Vaping Use Vaping Use: Never used Substance Use Topics Alcohol use: Yes Comment: beer rarely Drug use: No Comment: declines tx 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 FAMILY HISTORY Problem Relation Age of Onset Diabetes Mother Colon Cancer Father Ovarian cancer Sister Colon Cancer Brother Shalonda Chery APRN.CNP Hematology and Oncology Services Provided at: [place], [place] CC: Suzanne Estrella I spent a total of 30 minutes on the date of the service which included preparing to see the patient, [id number] patient care, completing clinical documentation, obtaining and/or reviewing separately obtained history, performing a medically appropriate examination, counseling and educating the patient/family/caregiver, ordering medications, tests, or procedures, independently interpreting results (not separately reported), and communicating results to the patient/family/caregiver. documented in this encounter [facility] 01-17-[address] [facility] 01-17-[address] [facility] 01-13-2024 Miscellaneous Notes Pt will be here on Saturday for education (Cisplatin). Scripts for antiemetics pended. Sherron Coughlin RN documented in this encounter [facility] 01-13-2024 Miscellaneous Notes Patient has been scheduled for education w/ Jaimee on Saturday and RV w/ Shalonda and begin treatment on 01/19 prior to XRT time. Patient's caregiver, Hien notified of all appts. Thank you! Reina May Sure can! GENA: You are out this week. Can patient see ANGELA? Reina May Pt has planned radiation new start on 01/19 and will need chemo coordinated. Can you please arrange for patient? Thank you Emeli Genao, RN documented in this encounter [facility] 01-08-[address] [facility] 01-08-2024 Nurse Note Radiation Therapy - Patient Education Note PATIENT NAME: Kennedy Kong PATIENT December 31, 2023 [facility] FACILITY/LOCATION: [facility] READINESS TO LEARN Cognitive Ability: Alert and oriented Motivation to learn: Interested Family Support: High - Very involved in pt care Instruction provide to: Patient and Family member Patient learns best by: Multiple Methods Factors effecting learning: None Physical limitations effecting learning: None LEARNING RESPONSE Diagnosis: Pt simulated today for radiation therapy to pelvis. Education Topic/Teaching Points: Radiation therapy, Side effects, and OTV: Method of instruction: Written instruction - handouts Verbal instruction Patient /Family response: Patient and family verbalized understanding of radiation treatments, side effects, OTV, and transportation. Follow-up plan: Recommend - Recommend continued instruction and follow up as directed Supplemental material: Informational handouts on Bladder function, Diarrhea, Fatigue, Pelvic handout, Skin changes, and patient education binder. Referral (recommendation): None, Pt denied need for social work, van service, and digital watch assembler. Patient has an Onbody or Implanted device: No Signed by: Epi aRzo LPN documented in this encounter [facility] 01-08-2024 History of Present illness Narrative KENNEDY KONG [id number] 01/08/2024 [facility] Radiation Oncology Department SIMULATION NOTE DATE OF SIMULATION: 01/08/2024 THERAPIST: Radha Singh MACHINE: [employer] DIAGNOSIS: Malignant neoplasm of lateral wall of jampmiuA53.2 AREA: pelvis CONTRAST: Oral Consent in Epic: Yes 25ml of omni 240 diluted in 450cc of water PATIENT POSITION: Supine. FIXATION DEVICE: In order to achieve accurate and reproducible treatments, the patient is immobilized with the orfit AIO system. A time-out was conducted and recorded by the therapist. CT scan was completed for target localization and planning. Field arrangement will be determined after plan has been completed. The patient is scheduled for a verification simulation on the treatment machine to ensure proper set-up and field arrangement is correct prior to the first treatment of primary and boost hoffmann if applicable. Patient education will be completed per nursing. Electronically Signed Andry Grajeda M.D. / FELIPE 45:00 PM documented in this encounter [facility] 01-08-[address] [facility] 01-08-[address] [facility] 01-03-2024 Instructions Bianca Hardwick - 01/03/2024 12:12 PM EDT Labs today Coordinate care for chemotherapy with Dr. Grajeda documented in this encounter [facility] 01-03-2024 History of Present illness Narrative Images from the original note were not included. NAME: Kennedy Kong NO.: [id number] DATE OF SERVICE: January 03, 2024 (Abhyanksamantha) Referring Provider: Dr. Andry Grajeda Consultation requested by Dr. Grajeda for an opinion regarding Mr. Kennedy Kong, and my final recommendations will be communicated back to the requesting physician by way of shared medical record or letter via US mail. Additional Clinicians involved in Kennedy Kong's care: Nestor Estrella, Avel Heath, Kylie Dietrich DIAGNOSIS: ASSESSMENT: 88 year old man with a history of colon cancer in his mid-50's treated with Chemo/RT followed by surgery complicated by several strictures and bowel obstructions requiring surgical intervention since. 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 He was treated with BCG through 09/2020. He then had a low-grade papillary bladder ca Nov 2020 with negative cytology. He was given Mitomycin-C every 6 months from October 2021 - March 2023. On December 05, 2023, was identified as having jwwy-nfkgl-mzczoy invasive papillary bladder cancer and has been referred to Radiation oncology and subsequently to me for an opinion regarding chemotherapy. 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 He would likely tolerate low dose weekly cisplatin for radiosensitizing given appropriate supportive therapy. Will Coordinate with Dr. Grajeda. PLAN: Labs today Coordinate care for chemotherapy with Dr. Grajeda HPI: CASE HISTORY: Reverse Chronological Order 12/17/2023 - CT A/P: Enhancing urothelial bladder lesion concerning for malignancy. No enlarged abdominal or pelvic lymph nodes. Other nonemergent findings. 12/05/2023 - Bladder tumor, transurethral resection: - High grade papillary urothelia carcinoma - Muscularis propria invasion identified 10/09/2023 - CT A/P: Small bowel obstruction with zone of transition in the lower mid abdomen. Large amount of stool within the cecum and throughout the colon. This can represent clinically has chronic constipation. Focal urinary bladder wall thickening adjacent to the right UVJ. Discrete uroepithelial lesion cannot be excluded. Prostatomegaly. 04/2023 - Non-STEMI - SOB and chest pain - obtuse marginal branch stented with drug eluting stent 10/23/2021 - 04/11/2023 - Mitomycin C - bladder instillation q 6 months 08/21/2021 - CT A/P: Enlarged left hemiscrotum with heterogenous hyperattenuation centrally and foci or air and fluid peripherally. The differential diagnosis would include testicular fracture versus malignancy. Presence of air could represent instrumentation or infection. Mildly enlarged heterogenous prostate gland. Dilated small bowel loops with rapid tapering and stool backup along suture lines at the rectosigmoid junction. 03/24/2021 - Urine, cystoscopic collected: Negative for malignant cells 11/23/2020 - Bladder tumor, biopsy: - Low grade papillary urothelial carcinoma, superficially sampled - No diagnostic lamina propria or detrusor muscle present. 08/08/2020 - 09/26/2020 Bladder BCG instillation x 6 05/26/2020 - Bladder tumor, TURBT: - Predominantly low grade papillary urothelial carcinoma with minor component of high grade papillary urothelial carcinoma, non-invasive 03/09/2020 - US Kidneys/Bladder: No hydronephrosis or discrete nephrolithiasis. Probable small simple left renal cyst. Essentially unremarkable sonographic appearance of the bladder with mild postvoid residual. 11/04/2019 - Colonoscopy: No stricture visualized, anastomosis widely patent. The examination was otherwise normal. ~ - Colon cancer: partial colectomy with colorectal anastomosis Initial Visit, January 03, 2024: Kennedy oKng presents today Hematology and Oncology evaluation, he is joined by his younger son, Dany. He is a 88 year old male who has bladder cancer with invasion into muscularis propria. He has a past history of colon cancer in the , s/p partial colectomy with colorectal anastomosis. He has received either gentamicin or mitomycin for bladder cancer previously. He has met with radiation, but has not had any treatment yet. I recommend cisplatin for him. He notes urination urgency due to difficulty emptying his bladder, worse at night. He has catheters at home and is capable of using them himself - I advised an ER visit if he has trouble with them. He is not a smoker but likely had past exposure to chemicals. 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 REVIEW OF SYSTEMS Per HPI and otherwise negative by full review of organ systems. ECOG PERFORMANCE STATUS: 0 PHYSICAL EXAMINATION: Vitals: BP 132/67 Pulse 56 Temp (Src) 97.4 (Temporal) Resp 16 Ht 5' 10 (1.78m) Wt 184 lb 11.9 oz (83.8kg) SpO2 99% BMI 26.51 kg/(m^2). Body surface area is 2.03 meters squared. Exam limited to gross visualization where appropriate. Gen.: This is an age-appropriate patient in no acute distress. Head: Appears atraumatic with no visible lesions. Eyes: Pupils equally round and reactive to light, extraocular muscles are intact. Neck: Supple. Respiratory: Appears to be respiring comfortably. Neurologic: Nonfocal to gross visualization. Alert and oriented 3. Psychiatric: No evidence of inappropriate anxiety or depression. Skin: Visible areas of skin without rash, lesions, wounds or petechiae. ALLERGIES: ALLERGIES Allergen Reactions Amoxicillin Other: See Comments Pt gets sores in mouth MEDICATIONS: CARROLL CHEWABLE ASPIRIN 81 mg chewable tablet CHEW 1 TABLET ONCE DAILY carvedilol (COREG) 6.25 mg tablet Take 6.25 mg by mouth two times a day with meals. clopidogrel (PLAVIX) 75 mg tablet TAKE 8 TABLETS BY MOUTH FOR 1 DOSE ONLY,THEN TAKE 1 TABLET BY MOUTH DAILY*REPLACES BRILINTA* rosuvastatin (CRESTOR) 40 mg tablet tamsulosin (FLOMAX) 0.4 mg Take 0.4 mg by mouth. docusate sodium (STOOL SOFTENER) 100 mg capsule Take 100 mg by mouth as needed for constipation. Fish Oil-DHA-EPA 1,200-144-216 mg cap Take by mouth once daily. LABORATORY VALUES: WBC (k/uL) Date Value 01/03/2024 6.92 RBC (m/uL) Date Value 01/03/2024 4.11 (L) Hemoglobin (g/dL) Date Value 01/03/2024 12.3 (L) Hematocrit (%) Date Value 01/03/2024 37.8 (L) MCV (fL) Date Value 01/03/2024 92.0 MCH (pg) Date Value 01/03/2024 29.9 MCHC (g/dL) Date Value 01/03/2024 32.5 RDW-CV (%) Date Value 01/03/2024 12.8 Platelet Count (k/uL) Date Value 01/03/2024 205 MPV (fL) Date Value 01/03/2024 8.5 (L) Glucose (mg/dL) Date Value 01/03/2024 100 (H) BUN (mg/dL) Date Value 01/03/2024 21 Creatinine (mg/dL) Date Value 01/03/2024 1.08 Sodium (mmol/L) Date Value 01/03/2024 138 Potassium (mmol/L) Date Value 01/03/2024 4.3 Chloride (mmol/L) Date Value 01/03/2024 104 CO2 (mmol/L) Date Value 01/03/2024 26 Protein, Total (g/dL) Date Value 01/03/2024 6.8 Albumin (g/dL) Date Value 01/03/2024 3.9 Calcium, Total (mg/dL) Date Value 01/03/2024 9.5 Alkaline Phosphatase (U/L) Date Value 01/03/2024 68 Bilirubin, Total (mg/dL) Date Value 01/03/2024 0.2 AST (U/L) Date Value 01/03/2024 14 ALT (U/L) Date Value 01/03/2024 17 DIAGNOSIS: (C67.0) 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) Plan: CONSULT TO ONCOLOGY, CBC + DIFF, COMP METABOLIC PANEL PAST MEDICAL HISTORY Diagnosis Date Basal cell cancer Colon cancer (HCC) Heart attack (HCC) PAST SURGICAL HISTORY Procedure Laterality Date COLECTOMY PART W/ANASTOMOSIS 1990 followed with chemotx and radiation COLONSCOPY SCREENING HIGH RISK EXCISION HYDROCELE UNILAT 2006 left EXPLORATORY LAPAROTOMY CELIOTOMY W/WO BIOPSY SPX 2010 Laparotomy, exp for obstruction with partial bowel resection PAST SURGICAL HISTORY OF Basal cell carcinoma removed from right nares PAST SURGICAL HISTORY OF cardiac stent placement RMVL LENS MATERIAL PHACOFRAGMENTATION ASPIR 2010 Cataract Extraction bilateral Social History Tobacco Use Smoking status: Never Smokeless tobacco: Never Vaping Use Vaping Use: Never used Substance Use Topics Alcohol use: Yes Comment: beer rarely Drug use: No Comment: declines tx 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 FAMILY HISTORY Problem Relation Age of Onset Diabetes Mother Colon Cancer Father Ovarian cancer Sister Colon Cancer Brother I spent a total of 90 minutes on the date of the service which included preparing to see the patient, qbjr-gw-qbus patient care, completing clinical documentation, obtaining and/or reviewing separately obtained history, performing a medically appropriate examination, counseling and educating the patient/family/caregiver, ordering medications, tests, or procedures, communicating with other HCPs (not separately reported), independently interpreting results (not separately reported), communicating results to the patient/family/caregiver, and care coordination (not separately reported). Darryl Chaparro MD, CPE Hematology and Oncology Services Provided at: [place], [place] Scribe Attestation: This note was scribed by Bianca Hardwick on January 03, 2024 under the direction and supervision of Dr. Darryl Chaparro. I attest that all of the information documented is correct to the best of my knowledge. Provider Attestation: I, Darryl Chaparro MD, attest that all information documented by the above scribe is correct, and was supervised by me and under my direction. CC: Suzanne Estrella documented in this encounter [facility] 01-03-[address] [facility] 12-31-[address] [facility] 12-31-2023 History of Present illness Narrative Radiation Oncology - New Patient/Consult Note PATIENT NAME: Kennedy Kong PATIENT REQUESTING PROVIDER: Dr. Dietrich. DIAGNOSIS: Bladder cancer, high-grade locally advanced T2b/T3b N0 M0, remote history of colorectal cancer with prior resection and pelvic radiation with concurrent chemotherapy 1992. HPI: 88 year old male who presents with above diagnosis, for an opinion regarding the role of radiation therapy in the management of the patient's disease. Final recommendations will be communicated back to the requesting physician by way of the shared medical record, or letter to requesting physician via US mail. Patient has a known history of superficial bladder cancer. Initially diagnosed in 2019 at that time with grade 3 disease limited to the lamina propria. He has been through BCG intravesicular therapy and surveillance. 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 Surveillance cystoscopy is negative after that. He did receive mitomycin intravesicular chemotherapy and several occasions 2021. Cystoscopy 11/09/2022 with small suspicious area however FISH negative. Repeat cystoscopy December 2022 without evidence of any lesions including any mucosal erythematous areas. He had further mitomycin in March 2023. On 05/14/2023 2 new papillary bladder neck lesions are seen approximately 2 cm each. Patient also with known coronary artery disease, and suffered an [place] this past summer, underwent stent placement as a result. Off any sort of bladder treatment until September of this past year. He was subsequently able to underwent TURBT on 12/05/2023. Intraoperatively tumor was noted along the floor over the right hemitrigone up to the bladder neck invading anteriorly onto the bladder neck. No other tumors seen. The right ureter was unable to be identified. Tumor was resected, ominous appearance with necrosis described. It seemed to invade the deep wall. Pathology:High-grade papillary urethral carcinoma. Muscularis propria invasion identified. ALLERGIES Allergen Reactions Amoxicillin Other: See Comments Pt gets sores in mouth Current Outpatient Medications on File Prior to Visit Medication Sig losartan potassium (LOSARTAN ORAL) Take by mouth once daily. docusate sodium (STOOL SOFTENER) 100 mg capsule Take 100 mg by mouth as needed for constipation. Fish Oil-DHA-EPA 1,200-144-216 mg cap Take by mouth once daily. cyanocobalamin (VITAMIN B-12) 100 mcg tab Take 200 mcg by mouth once daily. No current facility-administered medications on file prior to visit. 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 No status: PAST SURGICAL HISTORY Procedure Laterality Date COLECTOMY PART W/ANASTOMOSIS 1990 followed with chemotx and radiation COLONSCOPY SCREENING HIGH RISK EXCISION HYDROCELE UNILAT 2006 left EXPLORATORY LAPAROTOMY CELIOTOMY W/WO BIOPSY SPX 2010 Laparotomy, exp for obstruction with partial bowel resection PAST SURGICAL HISTORY OF Basal cell carcinoma removed from right nares PAST SURGICAL HISTORY OF cardiac stent placement RMVL LENS MATERIAL PHACOFRAGMENTATION ASPIR 2010 Cataract Extraction bilateral FAMILY HISTORY Problem Relation Age of Onset Diabetes Mother Colon Cancer Father Ovarian cancer Sister Colon Cancer Brother Social History Tobacco Use Smoking status: Never Smokeless tobacco: Never Vaping Use Vaping Use: Never used Substance Use Topics Alcohol use: Yes Comment: beer rarely Drug use: No Comment: declines tx 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 Residence: Home Occupation: Retired COMPLETE REVIEW OF SYSTEMS: GENERAL: feeling well without fatigue, no recent change in weight RESPIRATORY: no cough, no wheezing or shortness of breath CARDIOVASCULAR: no chest pain, no palpitations MUSCULOSKELETAL: denies any painful or swollen joints, no muscle aches SKIN: no rash NEURO: no numbness or paresthesias and no weakness of the extremities As noted in HPI PHYSICAL EXAM: VS: BP 134/80 Pulse (!) 57 Temp 36.3 C (97.4 F) Resp 16 Wt 84.8 kg (187 lb) SpO2 100% BMI 26.83 kg/m KPS: 90 General Appearance: Alert and oriented. No acute distress. HEENT: NCAT. Sclera anicteric. PERRL. EOMI. Neck: Normal ROM. No palpable cervical or supraclavicular adenopathy. Chest: No respiratory distress. Lungs clear to auscultation bilaterally. Heart: Regular rate and rhythm. Abdomen: Soft. Nontender. Nondistended. Musculoskeletal: No edema. Normal ROM in extremities. No bone or spine tenderness. Neuro: Speech fluent. Gait normal. No focal deficits. Skin: No rashes noted Lymphatics: No palpable lymphadenopathy. Hematologic: No signs of active bleeding. RADIOLOGY/LABORATORY DATA: see HPI ASSESSMENT AND PLAN: Bladder cancer, high-grade locally advanced T2b/T3b N0 M0, remote history of colorectal cancer with prior resection and pelvic radiation with concurrent chemotherapy 1992. Patient presents with locally advanced high-grade bladder cancer. Options of management discussed at length. Discussed both operative and nonoperative approaches. Patient not interested and considering cystectomy. Given his health history and age likely not a very good candidate. Patient I do feel may benefit from radiation. He has had prior pelvic radiation which was likely [address] [place] and will try to obtain those records. I do feel a second course of treatment can be given although the risks of potential bowel toxicity will be increased. Given this I would recommend treating partial bladder hoffmann only. Hopefully this will provide local control and help prevent right-sided ureteral obstruction as well as other local issues including bleeding. I do feel that given some limitations given the prior radiation that patient may benefit from some concurrent sensitizing chemotherapy. Doubtful he is a good candidate for aggressive chemotherapy as primary treatment. Will have him see medical oncology for their opinion. Will also complete staging with a CT chest. Will have him back after this. Signed by: Suzanne Grajeda MD cc: Nestor Estrella ([facility]) [facility] [place] [address] Kylie Dietrich [address] [place] [address] documented in this encounter [facility] 12-31-2023 Nurse Note Pacemaker/Defibrillator?N Previous Cancer(s)?Colon cancer early -sx, chemo, RT and skin cancer-rt nares around 2008, Bladder cancer 2019-BCG Previous Radiation? Y-radiation for colon cancer Lupus/Scleroderma?N On body monitoring device?N documented in this encounter [facility] 12-25-2023 Hospital Discharge instructions Follow Up Care 12/25/2023 09:32:29 With:KARLO CHOI, Kylie Restrepo, URL Address: [facility] [address], [place] [address]- [phone] When: Unknown [facility] 12-05-2023 Hospital Discharge instructions Patient Education 12/05/2023 [...] including vitamins, herbs, eye drops, creams, and xxdy-fhs-kvnowvp medicines. Any problems you or family members [...] provider tells you to take them. Taking zivd-tof-zattjoe medicines, vitamins, herbs, and supplements. General instructions [...] provider. Document Revised: 10/12/2022 Document Reviewed: 10/12/2022 [employer] Patient Education 2022 [employer]qus. 12/05/2023 13:36:01 Saldaña Catheter Care, Male-[facility]) Saldaña Catheter Care, Male A Saldaña catheter [...] cotton underwear to absorb moisture and keep gizzard skin remover. 6. Keep the drainage bag below the [...] With:Kylie DIETRICH Address: [facility] [address] [place] [address]- Business (1) When:12/12/2023 12:47:26 [facility] 12-05-2023 Note [id number]#[id number] [facility] 11-20-2023 History of Present illness Narrative Myra [...] visit. He has a history non-ST elevation WY due to occluded obtuse marginal branch with [...] Disp: , Rfl: Assessment/Plan 1. Atherosclerosis of cachil dehe coronary artery, unspecified whether angina present, unspecified whether cachil dehe or transplanted heart 2. Stented coronary artery [...] Adriel Morgan DO. documented in this encounter [facility] Work Phone: 11-20-2023 Instructions Lorena Garcia [...] of your visit. documented in this encounter [facility] Work Phone: 11-07-2023 Evaluation note Encounter [...] at HS, restarting at first s/s constipation [place] Other [phone] Miscellaneous Notes* CDU Provider Note - Raulito [...] see in follow up, our CDU clinical major case detective will assist the patient with their follow up needs. Clinical Impression: 1) Personal small bowel obstruction resolved 2) Surgery consultation I saw and evaluated the patient with ANEGLA. I provided a substantive portion of the [...] prescriptions, and ambulatory referrals. [facility]* CDU Provider Note [...] see in follow up, our CDU clinical major case detective will assist the patient with their follow [...] instructions, discharge summary, prescriptions, and ambulatory referrals. [facility]: [phone] Hospital Discharge instructions* Discharge Instructions* SAVANNA Gtz - 10/10/2023 3:46 PM EST Please call GI to schedule a follow-up appointment. Follow-up: Call as soon as possible for an appointment: Gastroenterology Clinic: [phone] [facility]* Tracey Lawrence RN - 10/10/2023 1:59 PM EST Reason for Consult: Keith Documentation Spoke with Kennedy Kong @ 1210 Action Plan: Emergency Department Radiography Technician and discussed the Medicare Outpatient Observation Notice (KEITH). Patient's questions answered and they verified understanding. Patient instructed to call Medicare at1-800-MEDICARE ( ) if they have any additional questions. Document signed by patient and Radiography Technician. Copy provided for patient. Document scanned to [email or web address] Tracey ANDERSON Emergency Department Clinical Radiography Technician [id number] Available via secure chat [facility] Emergency department Note* Tracey Lawrence RN - 10/10/2023 1:59 PM EST Reason for Consult: Keith Documentation Spoke with Kennedy Kong @ 8062 Action Plan: Emergency Department Radiography Technician and discussed the Medicare Outpatient Observation Notice (KEITH). Patient's questions answered and they verified understanding. Patient instructed to call Medicare at1-800-MEDICARE ( ) if they have any additional questions. Document signed by patient and Radiography Technician. Copy provided for patient. Document scanned to [email or web address] ANDERSON Emergency Department Clinical Radiography Technician [id number] Available via secure chat * Bronwyn Schaeffer [...] obstruction Disposition: Observation Unit Patient Kennedy Kong [id number] to be placed in observation unit for [...] note was dictated with the assistance of [employer] dictation software. Attempts were made to [...] Denies abd pain, nausea. [facility] Phys[facility] Emergency department Note* Bronwyn [...] obstruction Disposition: Observation Unit Patient Kennedy Kong [id number] to be placed in observation unit for [...] note was dictated with the assistance of [employer] dictation software. Attempts were made to proofread text, however some errors may still be present. Bronwyn Schaeffer MD Resident 10/10/23 0510 [facility] Work Phone: [phone] Emergency department Note* Dipti Patricia RN - 10/10/2023 1:38 AM EST Bed: E021 Expected date: Expected time: Means of arrival: Comments: triage [facility]12[facility] Emergency department Note* Lucy Ibarra RN - 10/09/2023 10:32 PM EST Pt to ED from OSH for SBO. Last BM approx 2 hrs ago, but hadn't fr 7 days prior to that. Vomited this am. Denies abd pain, nausea. 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 [facility] Other 12-15-2023 Evaluation note* Encounter Date Diagnosis [...] or fever. High fiber, low residue diet. [facility] Other 11-15-2023 Evaluation note* Encounter Date Diagnosis [...] - Z90.49) Secondary to IBD, in remission [facility] Other 11-01-2023 Evaluation note* Encounter Date Diagnosis [...] area clean. Duoderm may help protect area [facility] Other 11-01-2023 Evaluation note* Encounter Date Diagnosis Assessment Notes Treatment Notes Treatment Clinical Notes Aug, Pressure injury of sacral region, stage 1 (ICD-10 - L89.151) [facility] Other 10-17-2023 Evaluation note* Encounter Date Diagnosis Assessment Notes Treatment Notes Treatment Clinical Notes Jul, Dysuria (ICD-10 - R30.0) [facility] Other 10-13-2023 Evaluation note* Encounter Date Diagnosis [...] continue Tylenol, hot showers, avoid strenuous activity [facility] Other 09-18-2023 Evaluation note* Encounter Date Diagnosis [...] cancer (ICD-10 - Z85.51) No s/s recurrence [facility] Other 08-18-2023 Evaluation note* Encounter Date Diagnosis Assessment Notes Treatment Notes Treatment Clinical Notes May, Spider bite wound, accidental or unintentional, initial encounter (ICD-10 - T63.301A) May, Generalized muscle ache (ICD-10 - M79.10) May, Adverse reaction to statin medication (ICD-10 - T46.6X5A) May, Elevated cholesterol (ICD-10 - E78.00) [facility] Other 07-25-2023 Note [id number]:127[facility] 05-14-2023 NoteCustom Cystoscopy ? Voiding after [...] if you have a fever over 100 degrees.[facility] 05-02-2023 Evaluation note* Encounter Date Diagnosis Assessment Notes Treatment Notes Treatment Clinical Notes Apr, Tinea pedis of both feet (ICD-10 - B35.3) [facility] Other 07-04-2023 Progress note Author Hang Pedersen [facility] April 23, 2023 9:24am Note Date/Time April 23, 2023 9:20a m [facility] [address] [place] [address] Cardiology Progress Note Signed Patient: Kennedy Kong MR#: [id number] : 1935 Acct:[id number] Age/Sex: 87 / M Adm Date: 3 Loc: 4P Room: [address] [place] [address] Type: ADM IN Attending Dr: Kiki Motta [...] MPV Neut % (Auto) Lymph % (Auto) Rowan % (Auto) Eos % (Auto) Baso % (Auto) Nucleat RBC Rel Count Neut # (Auto) Lymph # (Auto) Rowan # (Auto) Eos # (Auto) Baso # (Auto) PHA Creatinine Clear Sodium Potassium Chloride Carbon Dioxide Anion Gap BUN Creatinine Est GFR (CKD-EPI) Glucose Calcium Troponin I High Sens 81324.8 H* 21730.7 H* 98261.2 H* Triglycerides Cholesterol LDL Cholesterol, Calc VLDL Cholesterol HDL Cholesterol Cholesterol/HDL Ratio 04/22/23 04/23/23 04/23/23 23:35 03:41 03:41 Corrected WBC 8.1 Uncorrected WBC Count 8.1 RBC 4.52 Hgb 13.4 Hct 40.6 MCV 89.8 MCH 29.7 MCHC 33.1 RDW 13.6 Plt Count 215 MPV 6.8 Neut % (Auto) 73.2 Lymph % (Auto) 10.5 Rowan % (Auto) 14.1 Eos % (Auto) 1.5 Baso % (Auto) 0.7 Nucleat RBC Rel Count 0.1 Neut # (Auto) 5.9 Lymph # (Auto) 0.9 L Rowan # (Auto) 1.1 H Eos # (Auto) 0.1 Baso # (Auto) 0.1 PHA Creatinine Clear 55.30 Sodium 137 Potassium 4.5 Chloride 106 Carbon Dioxide 25.0 Anion Gap 10.5 BUN 24 Creatinine 0.99 Est GFR (CKD-EPI) > 60.0 Glucose 110 H Calcium 8.7 Troponin I High Sens 96645.0 H* Triglycerides 97 Cholesterol 148 LDL Cholesterol, Calc 73 VLDL Cholesterol 19 HDL Cholesterol 56 Cholesterol/HDL Ratio 2.6 04/23/23 03:41 Corrected WBC Uncorrected WBC Count RBC Hgb Hct MCV MCH MCHC RDW Plt Count MPV Neut % (Auto) Lymph % (Auto) Rowan % (Auto) Eos % (Auto) Baso % (Auto) Nucleat RBC Rel Count Neut # (Auto) Lymph # (Auto) Rowan # (Auto) Eos # (Auto) Baso # (Auto) PHA Creatinine Clear Sodium Potassium Chloride Carbon Dioxide Anion Gap BUN Creatinine Est GFR (CKD-EPI) Glucose Calcium Troponin I High Sens 00649.2 H* Triglycerides Cholesterol LDL Cholesterol, Calc VLDL [...] Please make sure patient has follow-up in [facility] heart clinic within 10 days. Pending a [...] signed by Hang Pedersen MD> 04/23/23923 [facility] Work Phone: 1(861) 804-798707-03-2023 Consult note Author W Eddie [facility] April 22, 2023 12:46pm Note Date/Time April 22, 2023 12:42 pm [facility] [address] [place] [address] Cardiology Consult Note Signed Patient: Kennedy Kong MR#: [id number] : 1935 Acct:[id number] Age/Sex: 87 / M Adm Date: 3 Loc: Room: [address] [place] [address] Type: ADM IN Attending Dr: Kiki Motta MD Copies to: MD Nestor Todd DO W Scott Sheldon, DO~ Cardiology HPI History of Present Illness Consult Date: 04/22/23 Reason for Consult: Non-ST elevation [place]/ACS HPI: Mr. Kong is a 87 year old male seen in interventional cardiology consultation at request of hospitalist and gentleman who was transferred from [facility] emergency room after being awakened with chest discomfort at 3 AM this morning. The discomfort radiated to his shoulder, back, left side; finally drove himself to the emergency room, he received 1 sublingual nitroglycerin with relief. Initial high-sensitivity troponin was elevated at 648; initial ECGs revealed sinus rhythm with J-point elevation in the inferolateral leads, however somewhat similar to previous remote ECG at [facility] had on record Patient was excepted to the hospitalist service this morning. He did not receive any upstream heparin or antiplatelet therapies, [facility] ECG and labs are reviewed there are [...] signed by Ko Morgan DO> 04/22/23 1246 [facility] Work Phone: 1(889) 419-520307-03-2023 [facility] History and physical note Author Kiki Motta [facility] April 22, 2023 11:53am Note Date/Time April 22, 2023 11:10 am [facility] [address] [place], [place] [address]ist H&P Signed Patient: Kennedy Kong MR#: [id number] : 1935 Acct:[id number] Age/Sex: 87 / M Adm Date: 3 Loc: 4 Room: [address] [place] [address] Type: ADM IN Attending Dr: Kiki Motta [...] negative unless noted below or in HPI [facility] Attestation Statement: The following information [...] Motta MD> 04/22/23 1153 [facility] Work Phone: [phone]) 428-855506-23-2023 Evaluation note* Encounter Date Diagnosis Assessment Notes Treatment Notes Treatment Clinical Notes Mar, Tinea pedis of both feet (ICD-10 - B35.3) Keep dry, cleanse socks daily and open to air at home. Use cream bid and take Lamisil qd x 14 days [facility] Other 04-19-2023 Evaluation note* Encounter Date Diagnosis Assessment Notes Treatment Notes Treatment Clinical Notes Jan, Carbuncle and furuncle of buttock (ICD-10 - L02.33) Warm compresses or warm soak. 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 - follow up as needed. Avel Heath MD documented in [facility] encounterProtest[facility]03-13-2023 Evaluation note* Encounter Date Diagnosis Assessment [...] Diet adjustements to control constipation and diarrhea [facility] [place] Other 03-09-2023 Evaluation note* Encounter Date Diagnosis Assessment Notes Treatment Notes Treatment Clinical Notes Dec, Anemia, unspecified type (ICD-10 - D64.9) [facility] [place] Other 03-07-2023 Evaluation note* Encounter Date Diagnosis Assessment Notes Treatment Notes Treatment Clinical Notes Dec, Anemia, unspecified type (ICD-10 - D64.9) [facility] [place] Other 01-13-2023 Evaluation + Plan note Diagnostic Tests Pending * [facility]rine [facility]) 11/02/22 [facility] 08-15-2022 Evaluation + Plan note Diagnostic Tests Pending * [facility] Fish [facility] Urine Cyto ([facility]) 06/04/22 [facility] 05-13-2022 Evaluation + Plan note Diagnostic Tests Pending * [facility] Fish and Urine Cyto ([facility]) 03/02/22 [facility] 03-21-2022 Evaluation + Plan note Diagnostic Tests Pending * [facility] Fish and Urine Cyto ([facility]) 01/08/22 [facility] Teto discharge summary Author Kiki oMtta [facility] April 23, 2023 11:20am Note Date/Time April 23, 2023 11:20 am [facility] [address] [place] [address] Discharge Summary Signed Patient: Kennedy Kong MR#: [id number] : 1935 Acct:[id number] Age/Sex: 87 / M Adm Date: 3 Loc: Room: [address] [place] [address]: Kiki Motta MD Copies to: MD Nestro Todd,DO~ Providers Date of Discharge: 04/23/23 Discharging [...] discharge: 04/23/23 03:41: Troponin I High Sens 41406.2 H* 04/23/23 03:41: PHA Creatinine Clear 55.30, [...] % (Auto) 73.2, Lymph % (Auto) 10.5, Rowan % (Auto) 14.1, Eos % (Auto) 1.5, Baso % (Auto) 0.7, Nucleat RBC Rel Count 0.1, Neut # (Auto) 5.9, Lymph # (Auto) 0.9 L, Rowan # (Auto) 1.1 H, Eos # (Auto) 0.1, Baso # (Auto) 0.1 04/22/23 23:35: Troponin I High Sens 88161.0 H* 04/22/23 20:04: Troponin I High Sens 48278.2 H* 04/22/23 17:07: Troponin I High Sens 55189.7 H* 04/22/23 14:25: Troponin I High Sens 70031.8 H* Exam Physical Exam Vital Signs: Temp [...] doctor or pharmacist, without first calling the labor relations representative who implanted the stent. If you require [...] weight lifting, stair steppers, etc. until the labor relations representative approves these activities. Check with the labor relations representative on your first follow-up visit. CALL YOUR PHYSICIAN at [phone]: -If bleeding should occur from the catheter insertion site- apply pressure to the site then immediately call us. -Report any fever, redness, drainage, increased swelling, or firmness at the catheter insertion site. Some bruising or slight swelling may be present at the time of discharge. -Should arm or leg become cold, numb, white, or blue, contact the labor relations representative immediately. -IF you should experience episodes of [...] is recommended. Please call Central Scheduling at [phone] to schedule your appointment.] The attending labor relations representative or [facility] nurse clinician should provide you with specific instructions regarding activity, diet, medications, and further follow up for you. Follow the medication instructions provided on your discharge. If the dosages and instructions on this sheet differ from the dosage and instructions on the bottle, follow the instructions on the bottle. [facility] is not responsible for incorrect [...] signed by Kiki Motta MD> 04/23/23 1120 [facility] Work Phone: Evaluation + Plan note Future Appointments Appointment Date:12/10/2023 09:00:00 AM Scheduled Provider: Location:[facility] Appointment Type:URO Nurse Visit Appointment Date:12/16/2023 09:15:00 AM Scheduled Provider:[facility]RICH [facility] Future Appointments Appointment Date:04/20/2024 01:30:00 PM Scheduled Provider:Kylie DIETRICH MD [facility] Office Visit [facility] evaluation + Plan note Future Appointments Appointment Date:04/20/2024 01:30:00 PM Scheduled Provider:Kylie DIETRICH MD [facility] Office Visit Diagnostic Tests Pending * Urine Culture 03/04/24 [facility] [employer] Other Evaluation note* Diagnosis Irregular bowel habits- Primary Other specified disorder of intestines [facility] Diagnosis Onset Date Resolution Status Colon cancer acute Essential hypertension acute NSTEMI (non-ST elevated myocardial infarction) acute [facility] Work Phone: Evaluation note* Diagnosis Small bowel obstruction- Primary Unspecified intestinal obstruction Abdominal pain, generalized documented in this [facility] noteNo assessment information available [facility] Work Phone: Evaluation note* Diagnosis Atherosclerosis of cachil dehe coronary artery, unspecified whether angina present, unspecified whether c[place]il dehe or transplanted heart 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 Non-ST elevation myocardial infarction (NSTEMI) (CMS/HCC) Acute myocardial infarction, subendocardial infarction, episode of care unspecified Hyperlipidemia, unspecified hyperlipidemia type History of colon cancer Personal history of malignant neoplasm of large intestine Never smoked any substance Malignant neoplasm of urinary bladder, unspecified site (CMS/HCC) documented in this encounter [facility] Work Phone: Evaluation note* Diagnosis 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 [facility] 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 [facility] Diagnosis 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 [facility] Diagnosis 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 [facility] Diagnosis 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 [facility] Diagnosis 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 [facility] Diagnosis 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 [facility] Diagnosis 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 [facility] Diagnosis 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 [facility] Diagnosis 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 [facility] Diagnosis 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 [facility] Diagnosis 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 [facility] Diagnosis 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 Dark stools Nonspecific abnormal finding in stool contents [facility] Diagnosis 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 [facility] Diagnosis 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 [facility] Diagnosis 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 documented [facility] encounter [facility]* Diagnosis Other urinary incontinence- Primary documented in this encounter [facility]* Diagnosis 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 [facility] Diagnosis 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 Edema leg Edema documented in this encounter [facility]* Diagnosis 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 documented in this encounter [facility]* Diagnosis 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 High risk medications (not anticoagulants) long-term use Encounter for long-term (current) use of other medications documented [facility] this encounter [facility]* Diagnosis Dysuria- Primary [facility]* Diagnosis 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 High risk medications (not anticoagulants) long-term use Encounter for long-term (current) use of other medications documented in this encounter [facility]* Diagnosis 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 documented [facility] this encounter [facility]* Diagnosis 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 documented in this encounter [facility]* Diagnosis 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 documented in this encounter [facility]* Diagnosis 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 documented [facility] this encounter [facility]* Diagnosis 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 documented in this encounter [facility] general Narrative - Reported* Type Description Date [...] History Cystoscopy 12/2022 Hospitalization History see above [facility] Other [facility] general Narrative - Reported* Type Description Date [...] the LCx 04/2023 Hospitalization History see above [facility] Other [facility]ll general Narrative - Reported* Type Description Date [...] 2006, 2012, 2015, 2018 Surgical History Colectomy 2009 Surgical History scar tissue Surgical History CYSTOSCOPY 2021 Surgical History Cystoscopy 12/2022 Surgical History LHC, PCI/stent OM branch of the LCx 04/2023 Hospitalization History see above [facility] Other Hospital course Narrative No data available for this section [facility] Hospital Discharge instructions No data available for this section [facility] Hospital Discharge instructions Additional Instructions DISCHARGE [...] doctor or pharmacist, without first calling the labor relations representative who implanted the stent. If you require [...] weight lifting, stair steppers, etc. until the labor relations representative approves these activities. Check with the labor relations representative on your first follow-up visit. CALL YOUR PHYSICIAN at [phone]: -If bleeding should occur from the catheter insertion site- apply pressure to the site then immediately call us. -Report any fever, redness, drainage, increased swelling, or firmness at the catheter insertion site. Some bruising or slight swelling may be present at the time of discharge. -Should arm or leg become cold, numb, white, or blue, contact the labor relations representative immediately. -IF you should experience episodes of [...] is recommended. Please call Central Scheduling at [phone] to schedule your appointment.] The attending labor relations representative or [facility] nurse clinician should provide you with specific instructions regarding activity, diet, medications, and further follow up for you. Follow the medication instructions provided on your discharge. If the dosages and instructions on this sheet differ from the dosage and instructions on the bottle, follow the instructions on the bottle. [facility] is not responsible for incorrect prescription information provided by the patient during their visit. Do not stop your medications without consulting your health care provider. Please take the list with you to your next doctor's appointment.[facility] Work Phone: Progress note No data available for this section [facility] reason for referral (narrative)* Consultation (Routine) - New Request Specialty Diagnoses / Procedures Referred By Mart hale Referred To Contact Gastroenterology Diagnoses Small bowel obstruction Abdominal pain, generalized Seferino Han APRN-[employer] [address] [place] [phone] Referral ID Status Reason Start Date Expiration Date V isits Requested Visits Authorized [id number] New Request 10/10/2023 11/03/2024 1 [facility] Consultation (Routine) - Authorized Specialty Diagnoses / Procedures Referred By Mart hale Referred To Contact Cardiology Diagnoses Atherosclerosis of cachil dehe coronary artery, unspecified whether angina present, unspecified whether c[place] dehe or transplanted heart Stented coronary artery Non-ST elevation myocardial infarction (NSTEMI) (CMS/HCC) Procedures Follow Up In Cardiology Adriel Morgan DO [address] Clinic 2, [facility] [address] [place] [address] Adriel Morgan DO [address], Mark Anthony [address] [place] [address] Referral ID Status Reason Start Date Expiration Date V isits Requested Visits Authorized [id number] Authorized 11/20/2023 11/19/2024 1 1 [facility] Work Phone: [facility] for referral (narrative)* Diagnostic Procedure Only (Routine) - Pending Review Specialty Diagnoses / Procedures Referred By Mart hale Referred To Contact US IMAGING Diagnoses 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) Edema leg Procedures US DVT LOWER BILATERAL DUP-SCAN XTR VEINS COMPLETE BILATERAL STUDY Suzanne Grajeda MD [address] [place] [address] [place] [address] [place] [address] Referral ID Status Reason Start Date Expiration Date Visits Requested Visits Authorized [id number] Pending Review Auto-Generat ed Referral 02/17/2024 03/18/2025 1 1 [facility] for visit Narrative* Auth/Cert Specialty Diagnoses / Procedures Referred By Mart hale Referred To Contact Diagnoses Bowel Obstruction Raulito Camacho MD [address] [place] [address] [facility] [address] [place] [address] Referral ID Status Reason Start Date Expiration Date Visits Re quested Visits Authorized [id number] 1 1 [facility] Summary Purpose Family History No Family History [...] s thrombosis: Mother, Father, Brother(V17.49, Z82.49) Status:Active Relationship Condition Age at Onset Recorded Date/T ayden father Malignant neoplasm of colon Unknown Unknown Malignant neoplasm Unknown brother Unknown Not Specified Heart disease Unknown History of stroke Unknown Advance Directives No Advanced Directives Records Found Advance Directive Response Recorded Date/ Time Advance Directives No May 06 10:25am Latest Code Status on File Code Status Date Activated Date Inactivated Comments Full Code 11/04/2022 2:12 AM Advance Directive Response Recorded Date/ Time Advance Directives No May 06 9:25am Procedure Findings Note MR#: [id number] [facility] Pt. Name: Kennedy Kong Surgery Date: 03/31/2019 [...] (more content not included)... Note MR#: [id number] [facility] Pt. Name: Kennedy Kong Surgery Date: 04/16/2019 Room #: Z0 Date of : 1935 PROCEDURE NOTE ATTENDING: Gabriel Perez M.D. OFFICE EQUIPMENT MECHANIC: Marilee Jiménez M.D. PROCEDURE: Colonoscopy with polypectomy [...] infarction) Chief Complaint Z90.49 K91.30 Chief Complaint 4 Month Follow Up Urinary Tract Infection / UTI Chief Complaint Urinary Tract Infect ion / UTI Severe Constipation Chief Complaint * KENNEDY KONG is being seen for follow-up of a hospitalization for STEMI/PCI. 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 He has mild LV dysfunction, No significant coronary disease, ejection fraction of 45%. 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) Procedures CT SIM PLANNING RADIATION ONCOLOGY THER RAD SIMULAJ-AIDED FIELD SETTING COMPLEX Suzanne Grajeda MD [address] [place] [address] [place] [address] Referral ID Status Reason Start Date Expiration Date Visits Requested Visits Authorized [id number] Pending Review PCP Requested Referral 01/13/2024 04/07/2024 1 1 Specialty Diagnoses / Procedures Referred By Mart hale Referred To Contact Oncology Diagnoses 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) Procedures CONSULT TO ONCOLOGY OFFICE/OUTPATIENT [facility] 60 MINUTES Suzanne Grajeda MD [address] [place] [address] [place] [address] Referral ID Status Reason Start Date Expiration Date V isits Requested Visits Authorized [id number] Closed PCP Requested Referral 12/31/2023 12/30/2024 1 1 Specialty Diagnoses / Procedures Referred By Contac t Referred To Contact CT IMAGING Diagnoses 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) Procedures CT CHEST WO IVCON DIAGNOSTIC COMPUTED TOMOGRAPHY THORAX W/O CNTRST Suzanne Grajeda MD [address] [place] [address] [place] [address] [place] [address] Referral ID Status Reason Start Date Expiration Date V isits Requested Visits Authorized [id number] Closed Auto-Generate d Referral 12/31/2023 01/29/2025 1 1 Additional Source Comments (unrecognized sect ion and content) No Status Records FoundNo Status Records FoundNo Status Records FoundNo Status Records FoundNo Status Records FoundNo Status Records FoundNo Status Records FoundNo Status Records FoundNo Status Records FoundNo Status Records FoundNo Status Records FoundNo Status Records FoundNo Status Records FoundNo Status Records Found INFORMATION SOURCE (unrecogn ized section and content) DATE CREATED AUTHOR 04/16/2018 [facility] DATE CREATED AUTHOR AUTHOR'S ORGANIZ ATION 04/25/2019 [facility] DATE CREATED AUTHOR AUTHOR'S ORGANIZ ATION 11/04/2019 [facility] DATE CREATED AUTHOR AUTHOR'S ORGANIZ ATION 12/28/2022 [facility] DATE CREATED AUTHOR AUTHOR'S ORGANIZ ATION 01/23/2023 [facility] DATE CREATED AUTHOR AUTHOR'S ORGANIZ ATION 05/03/2023 [facility] DATE CREATED AUTHOR AUTHOR'S ORGANIZ ATION 06/27/2023 [facility] DATE CREATED AUTHOR AUTHOR'S ORGANIZ ATION 09/17/2023 [facility] DATE CREATED AUTHOR AUTHOR'S ORGANIZ ATION 10/27/2023 [facility] DATE CREATED AUTHOR AUTHOR'S ORGANIZ ATION 03/08/2024 [facility] DATE CREATED AUTHOR AUTHOR'S ORGANIZ ATION 03/26/2024 [facility] DATE CREATED AUTHOR AUTHOR'S ORGANIZ ATION 04/21/2024 [facility] DATE CREATED AUTHOR AUTHOR'S ORGANIZ ATION 05/09/2024 [facility] DATE CREATED AUTHOR AUTHOR'S ORGANIZ ATION 05/22/2024 [facility] Agricultural Lender Team (unrecognized sect ion and content) Team Status: Active Member Role Status Dates Nestor Estrella DO Primary Care Provider Active Team Status: Active Member Role Status Dates Nestor Estrella DO Primary Care Provide r, Attending Provider Active Start: January 03, 2024 Team Status: Active Member Role Status Dates Nestor Estrella DO Primary Care Provide r, Attending Provider Active Start: January 20, 2024 Team Status: Active Member Role Status Dates Nestor Estrella DO Primary Care Provide r, Attending Provider Active Start: January 28, 2024 Team Status: Inactive Member Role Status Dates Nestor Estrella DO Primary Care Provide r, Attending Provider Active Start: January 31, 2024 End: January 31, 2024 Team Status: Active Member Role Status Dates Nestor Estrella DO Primary Care Provide r, Attending Provider Active Start: February 04, 2024 Team Status: Active Member Role Status Dates Nestor Estrella DO Primary Care Provider Active Start: February 06, 2024 Darryl Chaparro MD Attending Provider Active Start: February 06, 2024 Team Status: Active Member Role Status Dates Nestor Estrella DO Primary Care Provider Active Start: February 12, 2024 Darryl Chaparro MD Attending Provider Active Start: February 12, 2024 Team Status: Active Member Role Status Dates Nestor Estrella DO Primary Care Provider Active Start: February 19, 2024 Darryl Chaparro MD Attending Provider Active Start: February 19, 2024 Team Status: Active Member Role Status Dates Nestor Estrella DO Primary Care Provider Active Start: February 26, 2024 Darryl Chaparro MD Attending Provider Active Start: February 26, 2024 Team Status: Inactive Member Role Status Dates Nestor Estrella DO Primary Care Provide r, Attending Provider Active Start: March 19, 2024 End: March 19, 2024 Commercial [employer] Professional Relationship Specialty Start Date End Date Nestor Estrella DO PCP - General Internal Medicine 01/16/12 Team Status: Inactive Member Role Status Dates Nestor Estrella DO Primary Care Provider Active Kiki Motta MD Admit Provider, Attending Provider A ctphillip West MD Other Provider Active Raheem Giles MD Other Provider Active Kimberly Skinner MD Other Provider Active Adriel Lay MD Other Provider Active Rashida Gould RN Other Provider Active Peyton Norman MD Other Provider Active Misty Rothman , [facility] Other Provider Active Endy Arevalo MD Other Provider Active Lucio Dillon MD Other Provider Active Ko Morgan DO Other Provider Active Christy Love APRN Other Provider Active Hannah Abraham MD Other Provider Active [employer] Professional Relationship Specialty Start Date End Date Jimmy Estrlela MD [address] [place] [address] PCP - General Family Medicine 11/03/22 Team Status: Inactive Member Role Status Senthil Estrella DO Primary Care Provider Active Zofia Gates MD Attending Provider Active [employer] Professional Relationship Specialty Start Date End Date Nestor Estrella DO [address] [place] [address] PCP - General Internal Medicine 11/20/23 [employer] Professional Relationship Specialty Start Date End Date Jimmy Estrella MD [address] [place] [address] PCP - General Family Medicine 11/03/22 [employer] Professional Relationship Specialty Start Date End Date Nestor Estrella DO PCP - General Internal Medicine 01/16/12 [employer] Professional Relationship Specialty Start Date End Date Nestor Estrella DO PCP - General Internal Medicine 01/16/12 [employer] Professional Relationship Specialty Start Date End Date Nestor Estrella DO PCP - General Internal Medicine 01/16/12 Commercial [employer] Professional Relationship Specialty Start Date End Date Nestor Estrella DO PCP - General Internal Medicine 01/16/12 [employer] Professional Relationship Specialty Start Date End Date Nestor Estrella DO PCP - General Internal Medicine 01/16/12 [employer] Professional Relationship Specialty Start Date End Date Nestor Estrella DO PCP - General Internal Medicine 01/16/12 Darryl Chaparro MD [address] [place] [address] [place] [address] Physician Hematology/Oncology 01/13/24 Suzanne Grajeda MD [address] [place] [address] [place] [address] Physician Radiation Oncology 01/13/24 Shalonda Chery APRN.ELECTRIC MOTOR REPAIRING SUPERVISOR [address] [place] [address] [place] [address] Nurse Practitioner Hematology/Oncology 01/13/24 Sherron Coughlin, JUSTIN [address] [facility] [place] [address] Specialty Maintenance Electrician Hematology/Oncology 01/13/24 [employer] Professional Relationship Specialty Start Date End Date Nestor Estrella DO PCP - General Internal Medicine 01/16/12 [employer] Professional Relationship Specialty Start Date End Date Nestor Estrella DO PCP - General Internal Medicine 01/16/12 Darryl Chaparro MD [address] [facility] [place] [address] Physician Hematology/Oncology 01/13/24 Suzanne Grajeda MD [address] [facility] [place] [address] Physician Radiation Oncology 01/13/24 Shalonda Chery, [employer] HARDWARE INSTALLER.ELECTRIC MOTOR REPAIRING SUPERVISOR [address] [facility] [place] [address] Nurse Practitioner Hematology/Oncology 01/13/24 Sherron Coughlin, JUSTIN [address] [facility] [place] [address] Specialty Maintenance Electrician Hematology/Oncology 01/13/24 Commercial [employer] Professional Relationship Specialty Start Date End Date Nestor Estrella DO PCP - General Internal Medicine 01/16/12 Darryl Chaparro MD [address] [facility] [place] [address] Physician Hematology/Oncology 01/13/24 Suzanne Grajeda MD [address] [facility] [place] [address] Physician Radiation Oncology 01/13/24 Shalonda Chery, WOOD[employer] SHADE HARDWARE INSTALLER.ELECTRIC MOTOR REPAIRING SUPERVISOR [address] [facility] [place] [address] Nurse Practitioner Hematology/Oncology 01/13/24 Sherron Coughlin, JUSTIN [address] [facility] [place] [address] Specialty Maintenance Electrician Hematology/Oncology 01/13/24 Commercial [employer] Professional Relationship Specialty Start Date End Date Nestor Estrella DO PCP - General Internal Medicine 01/16/12 Darryl Chaparro MD [address] [facility] [place] [address] Physician Hematology/Oncology 01/13/24 Suzanne Grajeda MD [address] [facility] [address] Physician Radiation Oncology 01/13/24 Shalonda Chery, WOOD[employer] SHADE HARDWARE INSTALLER.ELECTRIC MOTOR REPAIRING SUPERVISOR [address] [facility] [address] Nurse Practitioner Hematology/Oncology 01/13/24 Sherron Coughlin, JUSTIN [address] [place] [address] Specialty Maintenance Electrician Hematology/Oncology 01/13/24 Commercial Parts Professional Relationship Specialty Start Date End Date Nestor Estrella DO PCP - General Internal Medicine 01/16/12 Darryl Chaparro MD [address] [place] [address] Physician Hematology/Oncology 01/13/24 Suzanne Grajeda MD [address] [facility] [address] Physician Radiation Oncology 01/13/24 Shalonda Chery, WOODEN SHADE HARDWARE INSTALLER.ELECTRIC MOTOR REPAIRING SUPERVISOR [address] [facility] [address] Nurse Practitioner Hematology/Oncology 01/13/24 Sherron Coughlin RN [address] [facility] [place] [address] Specialty Maintenance Electrician Hematology/Oncology 01/13/24 Commercial Parts Professional Relationship Specialty Start Date End Date Nestor Estrella DO PCP - General Internal Medicine 01/16/12 Darryl Chaparro MD [address] [facility] [place] [address] Physician Hematology/Oncology 01/13/24 Suzanne Grajeda MD [address] [facility] [place] [address] Physician Radiation Oncology 01/13/24 Shalonda Chery, MIGUEL.ELECTRIC MOTOR REPAIRING SUPERVISOR [address] [facility] [place] [address] Nurse Practitioner Hematology/Oncology 01/13/24 Sherron Coughlin RN [address] [place] [address] Specialty Maintenance Electrician Hematology/Oncology 01/13/24 Commercial [employer] Professional Relationship Specialty Start Date End Date Nestor Estrella DO PCP - General Internal Medicine 01/16/12 Darryl Chaparro MD [address] [facility] [place] [address] Physician Hematology/Oncology 01/13/24 Suzanne Grajeda MD [address] [place] [address] Physician Radiation Oncology 01/13/24 Shalonda Chery, WOODEN SHADE HARDWARE INSTALLER.ELECTRIC MOTOR REPAIRING SUPERVISOR [address] [facility] [place] [address] Nurse Practitioner Hematology/Oncology 01/13/24 Sherron Coughlin, JUSTIN [address] [facility] [place] [address] Specialty Maintenance Electrician Hematology/Oncology 01/13/24 Commercial [employer] Professional Relationship Specialty Start Date End Date Nestor Estrella DO PCP - General Internal Medicine 01/16/12 Darryl Chaparro MD [address] [facility] [place] [address] Physician Hematology/Oncology 01/13/24 Suzanne Grajeda MD [address] [place] [address] [place] [address] Physician Radiation Oncology 01/13/24 Shalonda Chery, WOODEN SHADE HARDWARE INSTALLER.ELECTRIC MOTOR REPAIRING SUPERVISOR [address] [facility] [place] [address] Nurse Practitioner Hematology/Oncology 01/13/24 Sherron Coughlin RN [address] [facility] [place] [address] Specialty Maintenance Electrician Hematology/Oncology 01/13/24 Team Status: Inactive Member Role Status Dates Nestor Estrella DO Attending Provider Active Sta rt: November 07, 2023 End: November 07, 2023 Team Status: Active Member Role Status Dates Nestor Estrella DO Primary Care Provide r, Attending Provider Active Start: December 14, 2023 Team Status: Active Member Role Status Dates Nestor Estrella DO Primary Care Provide r, Attending Provider Active Start: December 17, 2023 Commercial Parts Professional Relationship Specialty Start Date End Date Nestor Estrella DO PCP - General Internal Medicine 01/16/12 Darryl Chaparro MD [address] [facility] [place] [address] Physician Hematology/Oncology 01/13/24 Suzanne Grajeda MD [address] [facility] [place] [address] Physician Radiation Oncology 01/13/24 Shalonda Chery, WOODEN SHADE HARDWARE INSTALLER.ELECTRIC MOTOR REPAIRING SUPERVISOR [address] [facility] [place] [address] Nurse Practitioner Hematology/Oncology 01/13/24 Sherron Coughlin, JUSTIN [address] [facility] [place] [address] Specialty Maintenance Electrician Hematology/Oncology 01/13/24 Jana Pierre LSW Chassis Inspector 02/03/24 Commercial [employer] Professional Relationship Specialty Start Date End Date Nestor Estrella DO PCP - General Internal Medicine 01/16/12 Darryl Chaparro MD [address] [facility] [place] [address] Physician Hematology/Oncology 01/13/24 Suzanne Grajeda MD [address] [facility] [place] [address] Physician Radiation Oncology 01/13/24 Shalonda Chery, WOODEN SHADE HARDWARE INSTALLER.ELECTRIC MOTOR REPAIRING SUPERVISOR [address] [facility] [place] [address] Nurse Practitioner Hematology/Oncology 01/13/24 Sherron Coughlin RN [address] [facility] [place] [address] Specialty Maintenance Electrician Hematology/Oncology 01/13/24 Commercial Parts Professional Relationship Specialty Start Date End Date Nestor Estrella DO PCP - General Internal Medicine 01/16/12 Darryl Chaparro MD [address] [facility] [place] [address] Physician Hematology/Oncology 01/13/24 Suzanne Grajeda MD [address] [facility] [place] [address] Physician Radiation Oncology 01/13/24 Shalonda Chery APRN.ELECTRIC MOTOR REPAIRING SUPERVISOR [address] [facility] [place] [address] Nurse Practitioner Hematology/Oncology 01/13/24 Sherron Coughlin RN [address] [facility] [place] [address] Specialty Maintenance Electrician Hematology/Oncology 01/13/24 Jana Pierre LSW Chassis Inspector 02/03/24 Commercial Parts Professional Relationship Specialty Start Date End Date Nestor Estrella DO PCP - General Internal Medicine 01/16/12 Darryl Chaparro MD [address] [facility] [place] [address] Physician Hematology/Oncology 01/13/24 Suzanne Grajeda MD [address] [facility] [place] [address] Physician Radiation Oncology 01/13/24 Shalonda Chery, WOODEN SHADE HARDWARE INSTALLER.ELECTRIC MOTOR REPAIRING SUPERVISOR [address] [facility] [place] [address] Nurse Practitioner Hematology/Oncology 01/13/24 Sherron Coughlin, JUSTIN [address] [facility] [place] [address] Specialty Maintenance Electrician Hematology/Oncology 01/13/24 Jana Pierre LSW Chassis Inspector 02/03/24 Commercial Parts Professional Relationship Specialty Start Date End Date Nestor Estrella DO PCP - General Internal Medicine 01/16/12 Darryl Chaparro MD [address] [facility] [place] [address] Physician Hematology/Oncology 01/13/24 Suzanne Grajeda MD [address] [facility] [place] [address] Physician Radiation Oncology 01/13/24 Shalonda Chery, WOODEN SHADE HARDWARE INSTALLER.ELECTRIC MOTOR REPAIRING SUPERVISOR [address] [facility] [place] [address] Nurse Practitioner Hematology/Oncology 01/13/24 Sherron Coughlin, JUSTIN [address] [facility] [place] [address] Specialty Maintenance Electrician Hematology/Oncology 01/13/24 Jana Pierre LSW Chassis Inspector 02/03/24 Commercial [employer] Professional Relationship Specialty Start Date End Date Nestor Estrella DO PCP - General Internal Medicine 01/16/12 Darryl Chaparro MD [address] [facility] [place] [address] Physician Hematology/Oncology 01/13/24 Suzanne Grajeda MD [address] [facility] [place] [address] Physician Radiation Oncology 01/13/24 Shalonda Chery, WOODEN SHADE HARDWARE INSTALLER.ELECTRIC MOTOR REPAIRING SUPERVISOR [address] [facility] [place] [address] Nurse Practitioner Hematology/Oncology 01/13/24 Sherron Coughlin, JUSTIN [address] [facility] [place] [address] Specialty Maintenance Electrician Hematology/Oncology 01/13/24 Jana Pierre LSW Chassis Inspector 02/03/24 Commercial Parts Professional Relationship Specialty Start Date End Date Nestor Estrella DO PCP - General Internal Medicine 01/16/12 Darryl Chaparro MD [address] [facility] [place] [address] Physician Hematology/Oncology 01/13/24 Suzanne Grajeda MD [address] [facility] [place] [address] Physician Radiation Oncology 01/13/24 Shalonda Chery, WOODEN SHADE HARDWARE INSTALLER.ELECTRIC MOTOR REPAIRING SUPERVISOR [address] [facility] [place] [address] Nurse Practitioner Hematology/Oncology 01/13/24 Sherron Coughlin, JUSTIN [address] [facility] [place] [address] Specialty Maintenance Electrician Hematology/Oncology 01/13/24 Jana Pierre LSW Chassis Inspector 02/03/24 Commercial Parts Professional Relationship Specialty Start Date End Date Nestor Estrella DO PCP - General Internal Medicine 01/16/12 Darryl Chaparro MD [address] [place] [address] Physician Hematology/Oncology 01/13/24 Suzanne Grajeda MD [address] [place] [address] Physician Radiation Oncology 01/13/24 Shalonda Chery, WOODEN SHADE HARDWARE INSTALLER.ELECTRIC MOTOR REPAIRING SUPERVISOR [address] [place] [address] Nurse Practitioner Hematology/Oncology 01/13/24 Sherron Coughlin, JUSTIN [address] [facility] [place] [address] Specialty Maintenance Electrician Hematology/Oncology 01/13/24 Jana Pierre LSW Chassis Inspector 02/03/24 Commercial [employer] Professional Relationship Specialty Start Date End Date Nestor Estrella DO PCP - General Internal Medicine 01/16/12 Darryl Chaparro MD [address] [place] [address] Physician Hematology/Oncology 01/13/24 Suzanne Grajeda MD [address] [place] [address] Physician Radiation Oncology 01/13/24 Shalonda Chery, WOODEN SHADE HARDWARE INSTALLER.ELECTRIC MOTOR REPAIRING SUPERVISOR [address] [facility] [place] [address] Nurse Practitioner Hematology/Oncology 01/13/24 Sherron Coughlin, JUSTIN [address] [facility] [place] [address] Specialty Maintenance Electrician Hematology/Oncology 01/13/24 Jana Pierre LSW Chassis Inspector 02/03/24 Commercial Parts Professional Relationship Specialty Start Date End Date Nestor Estrella DO PCP - General Internal Medicine 01/16/12 Darryl Chaparro MD [address] [place] [address] [place] [address] Physician Hematology/Oncology 01/13/24 Suzanne Grajeda MD [address] [place] [address] [place] [address] Physician Radiation Oncology 01/13/24 Shalonda Chery APRN.ELECTRIC MOTOR REPAIRING SUPERVISOR [address] [facility] [place] [address] Nurse Practitioner Hematology/Oncology 01/13/24 Sherron Coughlin RN [address] [facility] [place] [address] Specialty Maintenance Electrician Hematology/Oncology 01/13/24 Jana Pierre LSW Chassis Inspector 02/03/24 Commercial Parts Professional Relationship Specialty Start Date End Date Nestor Estrella DO PCP - General Internal Medicine 01/16/12 Darryl Chaparro MD [address] [facility] [place] [address] Physician Hematology/Oncology 01/13/24 Suzanne Grajeda MD [address] [facility] [place] [address] Physician Radiation Oncology 01/13/24 Shalonda Chery, WOODEN SHADE HARDWARE INSTALLER.ELECTRIC MOTOR REPAIRING SUPERVISOR [address] [facility] [place] [address] Nurse Practitioner Hematology/Oncology 01/13/24 Sherron Coughlin, JUSTIN [address] [facility] [place] [address] Specialty Maintenance Electrician Hematology/Oncology 01/13/24 Jana Pierre LSW Chassis Inspector 02/03/24 Commercial Parts Professional Relationship Specialty Start Date End Date Nestor Estrella DO PCP - General Internal Medicine 01/16/12 Darryl Chaparro MD [address] [facility] [facility] [place] [address] Physician Hematology/Oncology 01/13/24 Suzanne Grajeda MD [address] [facility] [facility] [place] [address] Physician Radiation Oncology 01/13/24 Shalonda Chery, [employer] SH[employer] HARDWARE INSTALLER.ELECTRIC MOTOR REPAIRING SUPERVISOR [address] [facility] [facility] [place] [address] Nurse Practitioner Hematology/Oncology 01/13/24 Sherron Coughlin, JUSTIN [address] [facility] [facility] [place] [address] Specialty Maintenance Electrician Hematology/Oncology 01/13/24 Jana Pierre LSW Chassis Inspector 02/03/24 [employer] Professional Relationship Specialty Start Date End Date Nesotr Estrella DO PCP - General Internal Medicine 01/16/12 Darryl Chaparro MD [address] [facility] [facility] [place] [address] Physician Hematology/Oncology 01/13/24 Suzanne Grajeda MD [address] [facility] [facility] [place] [address] Physician Radiation Oncology 01/13/24 Shalonda Chery, WOOD[employer] SHADE HARDWARE INSTALLER.ELECTRIC MOTOR REPAIRING SUPERVISOR [address] [facility] [facility] [place] [address] Nurse Practitioner Hematology/Oncology 01/13/24 Sherron Coughlin, JUSTIN [address] [facility] [facility] [place] [address] Specialty Maintenance Electrician Hematology/Oncology 01/13/24 Jana Pierre LSW Chassis Inspector 02/03/24 [employer] Professional Relationship Specialty Start Date End Date Nestor Estrella DO PCP - General Internal Medicine 01/16/12 Darryl Chaparro MD [address] [facility] [place] [address] Physician Hematology/Oncology 01/13/24 Suzanne Grajeda MD [address] [facility] [place] [address] Physician Radiation Oncology 01/13/24 Shalonda Chery, WO[employer] SH[employer] HARDWARE INSTALLER.ELECTRIC MOTOR REPAIRING SUPERVISOR [address] [facility] [place] [address] Nurse Practitioner Hematology/Oncology 01/13/24 Sherron Coughlin, JUSTIN [address] [facility] [place] [address] Specialty Maintenance Electrician Hematology/Oncology 01/13/24 Jana Pierre LSW Chassis Inspector 02/03/24 [employer] Professional Relationship Specialty Start Date End Date Nestor Estrella DO PCP - General Internal Medicine 01/16/12 Darryl Chaparro MD [address] [facility] [place] [address] Physician Hematology/Oncology 01/13/24 Suzanne Grajeda MD [address] [facility] [place] [address] Physician Radiation Oncology 01/13/24 Shalonda Chery APRN.ELECTRIC MOTOR REPAIRING SUPERVISOR [address] [facility] [place] [address] Nurse Practitioner Hematology/Oncology 01/13/24 Sherron Coughlin, JUSTIN [address] [facility] [place] [address] Specialty Maintenance Electrician Hematology/Oncology 01/13/24 Jana Pierre LSW Chassis Inspector 02/03/24 [employer] Professional Relationship Specialty Start Date End Date Nestor Estrella DO PCP - General Internal Medicine 01/16/12 Darryl Chaparro MD [address] [facility] [place] [address] Physician Hematology/Oncology 01/13/24 Suzanne Grajeda MD [address] [place] [address] [place] [address] Physician Radiation Oncology 01/13/24 Shalonda Chery, WO[employer] SH[employer] HARDWARE INSTALLER.ELECTRIC MOTOR REPAIRING SUPERVISOR [address] [place] [address] [place] [address] Nurse Practitioner Hematology/Oncology 01/13/24 Sherron Coughlin, JUSTIN [address] [facility] [place] [address] Specialty Maintenance Electrician Hematology/Oncology 01/13/24 Jana Pierre LSW Chassis Inspector 02/03/24 [employer] Professional Relationship Specialty Start Date End Date Nestor Estrella DO PCP - General Internal Medicine 01/16/12 Darryl Chaparro MD [address] [place] [address] [place] [address] Physician Hematology/Oncology 01/13/24 Suzanne Grajeda MD [address] [place] [address] [place] [address] Physician Radiation Oncology 01/13/24 Shalonda Chery, WOODEN SHADE HARDWARE INSTALLER.ELECTRIC MOTOR REPAIRING SUPERVISOR [address] [place] [address] [place] [address] Nurse Practitioner Hematology/Oncology 01/13/24 Sherron Coughlin, JUSTIN [address] [facility] [place] [address] Specialty Maintenance Electrician Hematology/Oncology 01/13/24 Jana Pierre LSW Chassis Inspector 02/03/24 [employer] Professional Relationship Specialty Start Date End Date Nestor Estrella DO PCP - General Internal Medicine 01/16/12 Darryl Chaparro MD [address] [facility] [place] [address] Physician Hematology/Oncology 01/13/24 Suzanne Grajeda MD [address] [place] [address] Physician Radiation Oncology 01/13/24 Shalonda Chery, WOODEN SHADE HARDWARE INSTALLER.ELECTRIC MOTOR REPAIRING SUPERVISOR [address] [facility] [address] Nurse Practitioner Hematology/Oncology 01/13/24 Sherron Coughlin, JUSTIN [address] [facility] [place] [address] Specialty Maintenance Electrician Hematology/Oncology 01/13/24 Jana Pierre LSW Chassis Inspector 02/03/24 [employer] Professional Relationship Specialty Start Date End Date Nestor Estrella DO PCP - General Internal Medicine 01/16/12 Darryl Chaparro MD [address] [facility] [place] [address] Physician Hematology/Oncology 01/13/24 Suzanne Grajeda MD [address] [facility] [place] [address] Physician Radiation Oncology 01/13/24 Shalonda Chery, WO[employer]EN SHADE HARDWARE INSTALLER.ELECTRIC MOTOR REPAIRING SUPERVISOR [address] [facility] [place] [address] Nurse Practitioner Hematology/Oncology 01/13/24 Sherron Coughlin, RN [address] [facility] [place] [address] Specialty Maintenance Electrician Hematology/Oncology 01/13/24 Jana Pierre LSW Chassis Inspector 02/03/24 [employer] Professional Relationship Specialty Start Date End Date Nestor Estrella DO PCP - General Internal Medicine 01/16/12 Darryl Chaparro MD [address] [facility] [place] [address] Physician Hematology/Oncology 01/13/24 Suzanne Grajeda MD [address] [place] [address] [place] [address] Physician Radiation Oncology 01/13/24 Shalonda Chery APRN.ELECTRIC MOTOR REPAIRING SUPERVISOR [address] [facility] [place] [address] Nurse Practitioner Hematology/Oncology 01/13/24 Sherron Coughlin, JUSTIN [address] [facility] [place] [address] Specialty Maintenance Electrician Hematology/Oncology 01/13/24 Jana Pierre LSW Chassis Inspector 02/03/24 [employer] Professional Relationship Specialty Start Date End Date Nestor Estrella DO PCP - General Internal Medicine 01/16/12 Darryl Chaparro MD [address] [facility] [place] [address] Physician Hematology/Oncology 01/13/24 Suzanne Grajeda MD [address] [facility] [place] [address] Physician Radiation Oncology 01/13/24 Shalonda Chery, WOODEN SHADE HARDWARE INSTALLER.ELECTRIC MOTOR REPAIRING SUPERVISOR [address] [facility] [place] [address] Nurse Practitioner Hematology/Oncology 01/13/24 Sherron Coughlin, JUSTIN [address] [facility] [place] [address] Specialty Maintenance Electrician Hematology/Oncology 01/13/24 Jana Pierre LSW Chassis Inspector 02/03/24 [employer] Professional Relationship Specialty Start Date End Date Nestor Estrella DO PCP - General Internal Medicine 01/16/12 Darryl Chaparro MD [address] [facility] [place] [address] Physician Hematology/Oncology 01/13/24 Suzanne Grajeda MD [address] [facility] [place] [address] Physician Radiation Oncology 01/13/24 Shalonda Chery, WOODEN SHADE HARDWARE INSTALLER.ELECTRIC MOTOR REPAIRING SUPERVISOR [address] [facility] [place] [address] Nurse Practitioner Hematology/Oncology 01/13/24 Sherron Coughlin, JUSTIN [address] [facility] [place] [address] Specialty Maintenance Electrician Hematology/Oncology 01/13/24 Jana Pierre LSW Chassis Inspector 02/03/24 [employer] Professional Relationship Specialty Start Date End Date Nestor Estrella DO PCP - General Internal Medicine 01/16/12 Darryl Chaparro MD [address] [facility] [place] [address] Physician Hematology/Oncology 01/13/24 Suzanne Grajeda MD [address] [facility] [place] [address] Physician Radiation Oncology 01/13/24 Shalonda Chery, WOODEN SHADE HARDWARE INSTALLER.ELECTRIC MOTOR REPAIRING SUPERVISOR [address] [facility] [place] [address] Nurse Practitioner Hematology/Oncology 01/13/24 Sherron Coughlin, JUSTIN [address] [facility] [place] [address] Specialty Maintenance Electrician Hematology/Oncology 01/13/24 Jana Pierre LSW Chassis Inspector 02/03/24 [employer] Professional Relationship Specialty Start Date End Date Nestor Estrella DO PCP - General Internal Medicine 01/16/12 Darryl Chaparro MD [address] [facility] [place] [address] Physician Hematology/Oncology 01/13/24 Suzanne Grajeda MD [address] [place] [address] [place] [address] Physician Radiation Oncology 01/13/24 Shalonda Chery, WOODEN SHADE HARDWARE INSTALLER.ELECTRIC MOTOR REPAIRING SUPERVISOR [address] [facility] [place] [address] Nurse Practitioner Hematology/Oncology 01/13/24 Sherron Coughlin, JUSTIN [address] [facility] [place] [address] Specialty Maintenance Electrician Hematology/Oncology 01/13/24 Jana Pierre LSW Chassis Inspector 02/03/24 [employer] Professional Relationship Specialty Start Date End Date Nestor Estrella DO PCP - General Internal Medicine 01/16/12 Darryl Chaparro MD [address] [place] [address] Physician Hematology/Oncology 01/13/24 Suzanne Grajeda MD [address] [place] [address] Physician Radiation Oncology 01/13/24 Shalonda Chery, WOODEN SHADE HARDWARE INSTALLER.ELECTRIC MOTOR REPAIRING SUPERVISOR [address] [place] [address] Nurse Practitioner Hematology/Oncology 01/13/24 Sherron Coughlin, JUSTIN [address] [place] [address] Specialty Maintenance Electrician Hematology/Oncology 01/13/24 Jana Pierre LSW Chassis Inspector 02/03/24 [employer] Professional Relationship Specialty Start Date End Date Nestor Estrella DO PCP - General Internal Medicine 01/16/12 Darryl Chaparro MD [address] [place] [address] Physician Hematology/Oncology 01/13/24 Suzanne Grajeda MD [address] [place] [address] Physician Radiation Oncology 01/13/24 Shalonda Chery, WOODEN SHADE HARDWARE INSTALLER.ELECTRIC MOTOR REPAIRING SUPERVISOR [address] [place] [address] [place] [address] Nurse Practitioner Hematology/Oncology 01/13/24 Sherron Coughlin, JUSTIN [address] [place] [address] [place] [address] Specialty Maintenance Electrician Hematology/Oncology 01/13/24 Jana Pierre LSW Chassis Inspector 02/03/24 [employer] Professional Relationship Specialty Start Date End Date Nestor Estrella DO PCP - General Internal Medicine 01/16/12 Darryl Chaparro MD [address] [place] [address] [place] [address] Physician Hematology/Oncology 01/13/24 Suzanne Grajeda MD [address] [place] [address] [place] [address] Physician Radiation Oncology 01/13/24 Shalonda Chery APRN.ELECTRIC MOTOR REPAIRING SUPERVISOR [address] [place] [address] [place] [address] Nurse Practitioner Hematology/Oncology 01/13/24 Sherron Coughlin RN [address] [place] [address] [place] [address] Specialty Maintenance Electrician Hematology/Oncology 01/13/24 Jana Pierre LSW Chassis Inspector 02/03/24 REASON FOR VISIT (unrecogniz ed section and content) Reason Comments Bladder Cancer Follow up Reason Comments Care Coordination Urine Culture Result s Reason Comments Edema Dysuria Diarrhea Reason Comments Diarrhea polyuria Edema Reason Comments Patient Question Reason Comments Care Coordination Catheter Sizing Reason Comments Care Coordination Urinary Supplies Reason Comments Orders Reason Comments Care Coordination Lab Results; IV Hydr ation Reason Comments Radiotherapy On-treatment Visit Reason Comments Patient Update Reason Comments Bladder Cancer OTV Reason Comments Care Coordination C1D1 Post Treatment Call Specialty Diagnoses / 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) Darryl Chaparro MD [address] [place] [address] [place] [address] Maninder Treat Tanner [address] [place] [address] Referral ID Status Reason Start Date Expiration Date V isits Requested Visits Authorized [id number] Authorized 01/05/2024 04/04/2024 99 99 Reason Comments Benefits Investigation Reason Comments Care Coordination Antiemetics Reason Onset Date Comments Simulation Request Form 01/08/2024 Reason Comments Future Appointment Reason Comments Patient Education Reason Comments Consult Reason Comments Bladder Cancer New patient consult Specialty Diagnoses / Procedures 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) Procedures CONSULT TO ONCOLOGY OFFICE/OUTPATIENT NEW HIGH MDM 60 MINUTES Suzanne Grajeda MD [address] [place] [address] [place] [address] Referral ID Status Reason Start Date Expiration Date V isits Requested Visits Authorized [id number] Closed PCP Requested Referral 12/31/2023 12/30/2024 1 1 Opinion Reason Comments Follow-up 6 months 4 month Follow upGI REFERRAL CONSULT Specialty Diagnoses / Procedures Referred By [facility] Referred To Contact Diagnoses [facility] [address] [place] [address] [facility] [address] [place] [address] Referral ID Status Reason Start Date Expiration Date Visits Re quested Visits Authorized [id number] 1 1 PATIENT IS HERE AT THE [...] or prosecute any alcohol or drug abuse patient.[facility] the event this information is protected by the Federal Confidentiality of Alcohol and Drug Abuse Patient Records regulations: The Federal rules restrict any use of the information to criminally investigate or prosecute any alcohol or drug abuse patient.[facility] HospitalIn the event this information is protected by the Federal Confidentiality of Alcohol and Drug Abuse Patient Records regulations: The Federal rules restrict any use of the information to criminally investigate or prosecute any alcohol or drug abuse patient.[facility] HospitalIn the event this information is protected by the Federal Confidentiality of Alcohol and Drug Abuse Patient Records regulations: The Federal rules restrict any use of the information to criminally investigate or prosecute any alcohol or drug abuse patient.[facility] HospitalIn the event this information is protected by the Federal Confidentiality of Alcohol and Drug Abuse Patient Records regulations: The Federal rules restrict any use of the information to criminally investigate or prosecute any alcohol or drug abuse patient.[facility] HospitalIn the event this information is protected by the Federal Confidentiality of Alcohol and Drug Abuse Patient Records regulations: The Federal rules restrict any use of the information to criminally investigate or prosecute any alcohol or drug abuse patient.[facility] HospitalIn the event this information is protected by the Federal Confidentiality of Alcohol and Drug Abuse Patient Records regulations: The Federal rules restrict any use of the information to criminally investigate or prosecute any alcohol or drug abuse patient.[facility] HospitalIn the event this information is protected by the Federal Confidentiality of Alcohol and Drug Abuse Patient Records regulations: The Federal rules restrict any use of the information to criminally investigate or prosecute any alcohol or drug abuse patient.[facility] HospitalIn the event this information is protected by the Federal Confidentiality of Alcohol and Drug Abuse Patient Records regulations: The Federal rules restrict any use of the information to criminally investigate or prosecute any alcohol or drug abuse patient.[facility] HospitalIn the event this information is protected by the Federal Confidentiality of Alcohol and Drug Abuse Patient Records regulations: The Federal rules restrict any use of the information to criminally investigate or prosecute any alcohol or drug abuse patient.[facility] HospitalIn the event this information is protected by the Federal Confidentiality of Alcohol and Drug Abuse Patient Records regulations: The Federal rules restrict any use of the information to criminally investigate or prosecute any alcohol or drug abuse patient.[facility] HospitalIn the event this information is protected by the Federal Confidentiality of Alcohol and Drug Abuse Patient Records regulations: The Federal rules restrict any use of the information to criminally investigate or prosecute any alcohol or drug abuse patient.[facility] HospitalIn the event this information is protected by the Federal Confidentiality of Alcohol and Drug Abuse Patient Records regulations: The Federal rules restrict any use of the information to criminally investigate or prosecute any alcohol or drug abuse patient.[facility] HospitalIn the event this information is protected by the Federal Confidentiality of Alcohol and Drug Abuse Patient Records regulations: The Federal rules restrict any use of the information to criminally investigate or prosecute any alcohol or drug abuse patient.[facility] HospitalIn the event this information is protected by the Federal Confidentiality of Alcohol and Drug Abuse Patient Records regulations: The Federal rules restrict any use of the information to criminally investigate or prosecute any alcohol or drug abuse patient.[facility] HospitalIn the event this information is protected by the Federal Confidentiality of Alcohol and Drug Abuse Patient Records regulations: The Federal rules restrict any use of the information to criminally investigate or prosecute any alcohol or drug abuse patient.[facility] HospitalIn the event this information is protected by the Federal Confidentiality of Alcohol and Drug Abuse Patient Records regulations: The Federal rules restrict any use of the information to criminally investigate or prosecute any alcohol or drug abuse patient.[facility] HospitalIn the event this information is protected by the Federal Confidentiality of Alcohol and Drug Abuse Patient Records regulations: The Federal rules restrict any use of the information to criminally investigate or prosecute any alcohol or drug abuse patient.[facility] HospitalIn the event this information is protected by the Federal Confidentiality of Alcohol and Drug Abuse Patient Records regulations: The Federal rules restrict any use of the information to criminally investigate or prosecute any alcohol or drug abuse patient.[facility] HospitalIn the event this information is protected by the Federal Confidentiality of Alcohol and Drug Abuse Patient Records regulations: The Federal rules restrict any use of the information to criminally investigate or prosecute any alcohol or drug abuse patient.[facility] HospitalIn the event this information is protected by the Federal Confidentiality of Alcohol and Drug Abuse Patient Records regulations: The Federal rules restrict any use of the information to criminally investigate or prosecute any alcohol or drug abuse patient.[facility] HospitalIn the event this information is protected by the Federal Confidentiality of Alcohol and Drug Abuse Patient Records regulations: The Federal rules restrict any use of the information to criminally investigate or prosecute any alcohol or drug abuse patient.[facility] HospitalIn the event this information is protected by the Federal Confidentiality of Alcohol and Drug Abuse Patient Records regulations: The Federal rules restrict any use of the information to criminally investigate or prosecute any alcohol or drug abuse patient.[facility] HospitalIn the event this information is protected by the Federal Confidentiality of Alcohol and Drug Abuse Patient Records regulations: The Federal rules restrict any use of the information to criminally investigate or prosecute any alcohol or drug abuse patient.[facility] HospitalIn the event this information is protected by the Federal Confidentiality of Alcohol and Drug Abuse Patient Records regulations: The Federal rules restrict any use of the information to criminally investigate or prosecute any alcohol or drug abuse patient.[facility] HospitalIn the event this information is protected by the Federal Confidentiality of Alcohol and Drug Abuse Patient Records regulations: The Federal rules restrict any use of the information to criminally investigate or prosecute any alcohol or drug abuse patient.[facility] HospitalIn the event this information is protected by the Federal Confidentiality of Alcohol and Drug Abuse Patient Records regulations: The Federal rules restrict any use of the information to criminally investigate or prosecute any alcohol or drug abuse patient.[facility] HospitalIn the event this information is protected by the Federal Confidentiality of Alcohol and Drug Abuse Patient Records regulations: The Federal rules restrict any use of the information to criminally investigate or prosecute any alcohol or drug abuse patient.[facility] HospitalIn the event this information is protected by the Federal Confidentiality of Alcohol and Drug Abuse Patient Records regulations: The Federal rules restrict any use of the information to criminally investigate or prosecute any alcohol or drug abuse patient.[facility] HospitalIn the event this information is protected by the Federal Confidentiality of Alcohol and Drug Abuse Patient Records regulations: The Federal rules restrict any use of the information to criminally investigate or prosecute any alcohol or drug abuse patient.[facility] HospitalIn the event this information is protected by the Federal Confidentiality of Alcohol and Drug Abuse Patient Records regulations: The Federal rules restrict any use of the information to criminally investigate or prosecute any alcohol or drug abuse patient.[facility] HospitalIn the event this information is protected by the Federal Confidentiality of Alcohol and Drug Abuse Patient Records regulations: The Federal rules restrict any use of the information to criminally investigate or prosecute any alcohol or drug abuse patient.[facility] HospitalIn the event this information is protected by the Federal Confidentiality of Alcohol and Drug Abuse Patient Records regulations: The Federal rules restrict any use of the information to criminally investigate or prosecute any alcohol or drug abuse patient.[facility] HospitalIn the event this information is protected by the Federal Confidentiality of Alcohol and Drug Abuse Patient Records regulations: The Federal rules restrict any use of the information to criminally investigate or prosecute any alcohol or drug abuse patient.[facility] HospitalIn the event this information is protected by the Federal Confidentiality of Alcohol and Drug Abuse Patient Records regulations: The Federal rules restrict any use of the information to criminally investigate or prosecute any alcohol or drug abuse patient.[facility] HospitalIn the event this information is protected by the Federal Confidentiality of Alcohol and Drug Abuse Patient Records regulations: The Federal rules restrict any use of the information to criminally investigate or prosecute any alcohol or drug abuse patient.[facility] HospitalIn the event this information is protected by the Federal Confidentiality of Alcohol and Drug Abuse Patient Records regulations: The Federal rules restrict any use of the information to criminally investigate or prosecute any alcohol or drug abuse patient.[facility] HospitalIn the event this information is protected by the Federal Confidentiality of Alcohol and Drug Abuse Patient Records regulations: The Federal rules restrict any use of the information to criminally investigate or prosecute any alcohol or drug abuse patient.[facility] HospitalIn the event this information is protected by the Federal Confidentiality of Alcohol and Drug Abuse Patient Records regulations: The Federal rules restrict any use of the information to criminally investigate or prosecute any alcohol or drug abuse patient.[facility] HospitalIn the event this information is protected by the Federal Confidentiality of Alcohol and Drug Abuse Patient Records regulations: The Federal rules restrict any use of the information to criminally investigate or prosecute any alcohol or drug abuse patient.[facility] HospitalIn the event this information is protected by the Federal Confidentiality of Alcohol and Drug Abuse Patient Records regulations: The Federal rules restrict any use of the information to criminally investigate or prosecute any alcohol or drug abuse patient.[facility] HospitalIn the event this information is protected by the Federal Confidentiality of Alcohol and Drug Abuse Patient Records regulations: The Federal rules restrict any use of the information to criminally investigate or prosecute any alcohol or drug abuse patient.[facility] HospitalIn the event this information is protected by the Federal Confidentiality of Alcohol and Drug Abuse Patient Records regulations: The Federal rules restrict any use of the information to criminally investigate or prosecute any alcohol or drug abuse patient.[facility] HospitalIn the event this information is protected by the Federal Confidentiality of Alcohol and Drug Abuse Patient Records regulations: The Federal rules restrict any use of the information to criminally investigate or prosecute any alcohol or drug abuse patient.[facility] HospitalIn the event this information is protected by the Federal Confidentiality of Alcohol and Drug Abuse Patient Records regulations: The Federal rules restrict any use of the information to criminally investigate or prosecute any alcohol or drug abuse patient.[facility] HospitalIn the event this information is protected by the Federal Confidentiality of Alcohol and Drug Abuse Patient Records regulations: The Federal rules restrict any use of the information to criminally investigate or prosecute any alcohol or drug abuse patient.[facility] HospitalIn the event this information is protected by the Federal Confidentiality of Alcohol and Drug Abuse Patient Records regulations: The Federal rules restrict any use of the information to criminally investigate or prosecute any alcohol or drug abuse patient.[facility] HospitalIn the event this information is protected by the Federal Confidentiality of Alcohol and Drug Abuse Patient Records regulations: The Federal rules restrict any use of the information to criminally investigate or prosecute any alcohol or drug abuse patient.[facility] HospitalIn the event this information is protected by the Federal Confidentiality of Alcohol and Drug Abuse Patient Records regulations: The Federal rules restrict any use of the information to criminally investigate or prosecute any alcohol or drug abuse patient.[facility] Scheduled Active and Recently Administ ered Medications (unrecognized section and content) Medication Order 10/08/2023 10/09/2023 10/10/2023 aspirin chewable tablet 81 mg 81 mg, Oral, DAILY, First dose on Leslie 10/10/23 at 1015, Until Discontinued 105 (Given - Provid er: Cyndi Coley RN) [...] be documented in a n alternate section Inactive Administered Medications - up to 3 most recent administrations Administered Medications (un recognized section and content) Medication Order MAR Action Action Date Dose Rate Site CISplatin 40.6 mg in NaCl 0.9% 1,090.6 mL (PLATINOL) 40.6 mg (20 mg/m2 2.03 m2 Treatment Plan BSA from Recorded weight), INTRAVENOUS, Administer over 1 Hours, ONCE, 1 dose, On Sat01/20/24 at 1030, EXP: 01/21/2024 1630 RT Hazardous Chemotherapy Drug: Use appropriate PPE. Antineoplastic Vesicant for concentrations greater than 0.4 mg/mL - Antineoplastic Irritant for concentrations less than 0.4 mg/mL. Protect from Light. New Bag/Syringe/Bottle 01/20/2024 11:28 AM EDT 40.6 mg dexAMETHasone 10 mg in NaCl 0.9% 50 mL (DECADRON) 10 mg, INTRAVENOUS, ONCE, 1 dose, On Sat01/20/24 at 1030, Refrigerate. New Bag/Syringe/Bottle 01/20/2024 10:25 AM EDT 10 mg fosaprepitant 150 mg in NaCl 0.9% 250 mL (EMEND) 150 mg, INTRAVENOUS, Administer over 30 Minutes, ONCE, 1 dose, On Sat01/20/24 at 1030, Approximate Total Volume = 280 mL Mix in non-DEHP bag - Refrigerate New Bag/Syringe/Bottle 01/20/2024 10:45 AM EDT 150 mg furosemide 40 mg injection (LASIX) 40 mg, INTRAVENOUS, ONCE, 1 dose, On Sat01/20/24 at 1030 Given 01/20/2024 1:08 PM EDT 40 mg magnesium sulfate 2 g in NaCl 0.9% 1,000 mL INTRAVENOUS, at 999 mL/hr, Administer over 1 Hours, ONCE, 1 dose, On Sat01/20/24 at 1030, EXP: 01/22/2024 1030 RT New Bag/Syringe/Bottle 01/20/2024 12:37 PM EDT 999 mL/hr NaCl 0.9% iv bolus 500 mL 500 mL, INTRAVENOUS, at 999 mL/hr, Administer over 0.5 Hours, ONCE, 1 dose, On Sat01/20/24 at 1030 New Bag/Syringe/Bottle 01/20/2024 10:18 AM EDT 500 mL 999 mL/hr palonosetron 0.25 mg injection (ALOXI) 0.25 mg, INTRAVENOUS, ONCE, 1 dose, On Sat01/20/24 at 1030, Flush IV line with NS prior to and following administration. Given 01/20/2024 10:25 AM EDT 0.25 mg Inactive Administered Medications - up to 3 most recent administrations Medication Order MAR Action Action Date Dose Rate Site CISplatin 40.6 mg in NaCl 0.9% 1,090.6 mL (PLATINOL) 40.6 mg (20 mg/m2 2.03 m2 Treatment Plan BSA from Recorded weight), INTRAVENOUS, Administer over 1 Hours, ONCE, 1 dose, On Sat01/28/24 at 1030, EXP: 01/29/2024 1620 RT Hazardous Chemotherapy Drug: Use appropriate PPE. Antineoplastic Vesicant for concentrations greater than 0.4 mg/mL - Antineoplastic Irritant for concentrations less than 0.4 mg/mL. Protect from Light. New Bag/Syringe/Bottle 01/28/2024 11:20 AM EDT 40.6 mg dexAMETHasone 10 mg in NaCl 0.9% 50 mL (DECADRON) 10 mg, INTRAVENOUS, ONCE, 1 dose, On Sat01/28/24 at 0930, Refrigerate. New Bag/Syringe/Bottle 01/28/2024 10:22 AM EDT 10 mg fosaprepitant 150 mg in NaCl 0.9% 250 mL (EMEND) 150 mg, INTRAVENOUS, Administer over 30 Minutes, ONCE, 1 dose, On Sat01/28/24 at 0930, Approximate Total Volume = 280 mL Mix in non-DEHP bag - Refrigerate New Bag/Syringe/Bottle 01/28/2024 10:38 AM EDT 150 mg furosemide 40 mg injection (LASIX) 40 mg, INTRAVENOUS, ONCE, 1 dose, On Sat01/28/24 at 1030 Given 01/28/2024 12:27 PM EDT 40 mg magnesium sulfate 2 g in NaCl 0.9% 1,000 mL INTRAVENOUS, at 999 mL/hr, Administer over 1 Hours, ONCE, 1 dose, On Sat01/28/24 at 1030 New Bag/Syringe/Bottle 01/28/2024 12:32 PM EDT 999 mL/hr NaCl 0.9% iv bolus 500 mL 500 mL, INTRAVENOUS, at 999 mL/hr, Administer over 0.5 Hours, ONCE, 1 dose, On Sat01/28/24 at 0930 New Bag/Syringe/Bottle 01/28/2024 9:30 AM EDT 500 mL 999 mL/hr palonosetron 0.25 mg injection (ALOXI) 0.25 mg, INTRAVENOUS, ONCE, 1 dose, On Sat01/28/24 at 0930, Flush IV line with NS prior to and following administration. Given 01/28/2024 10:21 AM EDT 0.25 mg Inactive Administered Medications - up to 3 most recent administrations Medication Order MAR Action Action Date Dose Rate Site NaCl 0.9% 1,000 mL INTRAVENOUS, at 999 mL/hr, Administer over 1 Hours, ONCE, 1 dose, On Sat02/05/24 at 1030 New Bag/Syringe/Bottle 02/05/2024 10:20 AM EDT 999 mL/hr Inactive Administered Medications - up to 3 most recent administrations Medication Order MAR Action Action Date Dose Rate Site CISplatin 40.6 mg in NaCl 0.9% 1,090.6 mL (PLATINOL) 40.6 mg (20 mg/m2 2.03 m2 Treatment Plan BSA from Recorded weight), INTRAVENOUS, Administer over 1 Hours, ONCE, 1 dose, On Sat02/06/24 at 0930, EXP: 0140 02/08/24 Hazardous Chemotherapy Drug: Use appropriate PPE. Antineoplastic Vesicant for concentrations greater than 0.4 mg/mL - Antineoplastic Irritant for concentrations less than 0.4 mg/mL. Protect from Light. New Bag/Syringe/Bottle 02/06/2024 10:44 AM EDT 40.6 mg dexAMETHasone 10 mg in NaCl 0.9% 50 mL (DECADRON) 10 mg, INTRAVENOUS, ONCE, 1 dose, On Sat02/06/24 at 0930, Refrigerate. New Bag/Syringe/Bottle 02/06/2024 9:47 AM EDT 10 mg fosaprepitant 150 mg in NaCl 0.9% 250 mL (EMEND) 150 mg, INTRAVENOUS, Administer over 30 Minutes, ONCE, 1 dose, On Sat02/06/24 at 0930, Approximate Total Volume = 280 mL Mix in non-DEHP bag - Refrigerate New Bag/Syringe/Bottle 02/06/2024 10:07 AM EDT 150 mg furosemide 10 mg injection (LASIX) 10 mg, INTRAVENOUS, ONCE, 1 dose, On Sat02/06/24 at 0930 Given 02/06/2024 1:01 PM EDT 10 mg magnesium sulfate iv piggyback in sterile water 2 g 50 mL 2 g, INTRAVENOUS, at 25-50 mL/hr, Administer over 1-2 Hours, ONCE, 1 dose, On Sat02/06/24 at 1000, Magnesium Sulfate IV bolus will be infused at a rate of 1 gram/hr. The following care areas may administer a magnesium sulfate bolus at a rate of 2 grams/hr if necessary: 1) ICUs/PACU/ED 2) Adult Hematology/Oncology 3) Labor and Delivery 4) Cardiac Step Down 5) Headache Clinic The following care areas may administer a magnesium sulfate bolus at a rate of GREATER than 2 grams/hr if necessary: 1) Adult and Pediatric Asthma Exacerbations 2) [place] 3) Pediatric BMT and Hematology/Oncology 4) Eclampsia or Preeclampsia New Bag/Syringe/Bottle 02/06/2024 12:05 PM EDT 2 g 50 mL/hr NaCl 0.9% iv bolus 1,000 mL 1,000 mL, INTRAVENOUS, at 999 mL/hr, Administer over 1 Hours, ONCE, 1 dose, On Leslie 02/06/24 at 1000 New Bag/Syringe/Bottle 02/06/2024 12:00 PM EDT 1,000 mL 999 mL/hr NaCl 0.9% iv bolus 500 mL 500 mL, INTRAVENOUS, at 999 mL/hr, Administer over 0.5 Hours, ONCE, 1 dose, On [place] 02/06/24 at 0930 New Bag/Syringe/Bottle 02/06/2024 9:20 AM EDT 500 mL 999 mL/hr palonosetron 0.25 mg injection (ALOXI) 0.25 mg, INTRAVENOUS, ONCE, 1 dose, On [place] 02/06/24 at 0930, Flush IV line with NS prior to and following administration. Given 02/06/2024 9:43 AM EDT 0.25 mg FOR RECORDS PERTAINING TO PATIENTS WHO ARE [...] BE BASED ON THE PRIMARY CLINICAL RECORDS. [employer] [facility]. provides no warranty or guarantee of the accuracy or completeness of information in this document.
[2024-05-25 08:25] LABS: Chol HDL Ratio 1.5; Cholesterol 101 mg/dL (<=200); HDL Cholesterol 67 mg/dL (40-60); Triglycerides 34 mg/dL (<=150); VLDL CHOLESTEROL 6.8 mg/dL
== END 2024-05-25 07:20 | disposition home or self-care (01) ==
PROVIDERS: PCP Internal Medicine; Visit Provider Internal Medicine Cardiovascular Disease
DX: E78.5 Hyperlipidemia, unspecified (principal)
CPT/HCPCS: 36415; 80061

== ENCOUNTER 2024-06-11 09:17 | Outpatient (OUT) | payer MEDICARE, SELFPAY ==
[2024-06-11 09:43] LABS: Bilirubin Urine NEGATIVE (NEGATIVE); Blood Urine NEGATIVE (NEGATIVE); Clarity Urine CLEAR (CLEAR); Color Urine DK. YELLOW (YELLOW); Glucose Urine UA NEGATIVE (NEGATIVE); Ketones Urine TRACE mg/dL (NEGATIVE); Leukocyte Esterase Urine NEGATIVE (NEGATIVE); Nitrite Urine NEGATIVE (NEGATIVE); Protein Urine NEGATIVE (NEG/TRACE); Specific Gravity Urine >=1.030 (1.005-1.025); Urobilinogen Urine 0.2 EU/dL (0.2-1.0); pH Urine 5.5 (5.0-9.0)
[2024-06-11 10:18] LABS: Bacteria Urine NONE SEEN #/HPF (NONE SEEN); Mucus Urine MODERATE (NONE SEEN); Squamous Epithelial Cell Urine FEW #/LPF (NONE/RARE); WBC Urine 0-2 #/HPF (NONE SEEN)
[2024-06-11 10:19] LABS: Urine Culture Indicated ALREADY ORDERED
== END 2024-06-11 09:18 | disposition home or self-care (01) ==
LOC: LAB 09:20
PROVIDERS: PCP Internal Medicine; Visit Provider Internal Medicine
DX: R35.89 Other polyuria (principal)
CPT/HCPCS: 81001; 87086

== ENCOUNTER 2024-06-29 07:37 | Day surgery (SDC) | payer MEDICARE, SELFPAY ==
[2024-06-29] MEDS: LIDOCAINE 2% JELLY 10 ML UR (08:12)
--- NOTE | 2024-06-29 08:33 | P.URON_ITS ---
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 Cystoscopy. 2. Dilation of bulbar urethral stricture with Mason sounds to 28 Stateless. 3. Placement of 18 Stateless Saldaña catheter. Anesthesia: local Primary Surgeon: Moises Julien Complications: None Estimated blood loss (mL): 5 Findings: 1. Indurated thick bulbar urethral stricture. 2. No evidence of classic papillary bladder tumors. 3. 2 areas that are minimally raised and erythematous on the right wall. 1 in the mid right wall and the other in the back right wall. Both of these areas are 1 cm or less. 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 He failed his intravesical treatments. He ultimately underwent chemotherapy and radiation therapy. He now presents for surveillance cystoscopy. He has signed an informed consent. Detailed description of Procedure: The patient was kept on the rkeaton bed and brought into the endoscopy suite. He was in the supine position. Timeout was done by all parties in the room. We all agreed upon the patient's identification and the planned procedures for this patient. Genitalia were sterilely prepped and draped in the usual fashion. 2% lidocaine gel was passed per urethra. I started by passing a flexible cystoscope per urethra. In the proximal penile urethra and the bulbar urethra there were significant narrowings and induration. I was not able to pass the scope through the bulb strictured area. I then passed a Glidewire through the scope and was able to get it through the stricture and into the bladder. The scope was removed. I then used Mason sounds and dilated him from 20 Stateless up to 28 Stateless. The tissues in this area were very thick and indurated. I then remove the wire and then passed the scope again. The bulb was now open but still very indurated. I then passed the scope into the bladder. Careful panendoscopy revealed no evidence of any classic bladder tumors. High-grade trabeculation with open diverticuli were noted diffusely. On the right lateral wall there was 1 small area which was minimally raised and irregular and it was red. This was 1 cm or less. On the right lateral wall towards the back of the bladder was a similar lesion. These lesions are ill-defined. The rest of the bladder was very unremarkable. The scope was then removed. The dilated previously strictured bulb was now bleeding some. I then placed an 18 Stateless Saldaña catheter into the bladder. It was actually difficult to get the catheter through this indurated bulb. Once the catheter was in the bladder it then revealed clear urine. 10 cc of fluid was placed in the balloon. A leg bag was attached. He was then discharged to home. He will get his catheter removed in a day or 2 in the office. We will repeat his surveillance cystoscopy in about 4 to 6 months.
[2024-06-29 09:16] VITALS: BP 131/60; PULSE 70; O2SAT 99
[2024-06-29 09:19] VITALS: BP 155/75; PULSE 60; O2SAT 98
== END 2024-06-29 08:40 | disposition home or self-care (01) ==
PROVIDERS: PCP Internal Medicine; Visit Provider Urology
PROC: (CPT 52281; principal; 2024-06-29 08:00)
DX: Z85.51 Personal history of malignant neoplasm of bladder (principal); N32.89 Other specified disorders of bladder; N35.912 Unspecified bulbous urethral stricture, male; Z85.038 Personal history of other malignant neoplasm of large intestine; I25.10 Atherosclerotic heart disease of native coronary artery without angina pectoris; E78.5 Hyperlipidemia, unspecified; N18.9 Chronic kidney disease, unspecified; N40.0 Benign prostatic hyperplasia without lower urinary tract symptoms; I25.2 Old myocardial infarction
CPT/HCPCS: 52281

== ENCOUNTER 2024-11-19 13:53 | Outpatient (OUT) | payer MEDICARE, SELFPAY | END 2024-11-19 13:54 | disposition home or self-care (01) | LOC: PST 13:53 | PROVIDERS: PCP Internal Medicine; Visit Provider Urology | DX: Z01.818 Encounter for other preprocedural examination (principal); Z85.51 Personal history of malignant neoplasm of bladder ==

== ENCOUNTER 2024-11-23 07:52 | Day surgery (SDC) | payer MEDICARE, SELFPAY ==
[2024-11-23 08:00] VITALS: BP 152/68; PULSE 82; TEMP 36.1; O2SAT 96
[2024-11-23 08:52] VITALS: BP 113/67; PULSE 60; O2SAT 99
[2024-11-23] MEDS: LIDOCAINE 2% JELLY 10 ML UR (08:53)
[2024-11-23 09:05] VITALS: BP 116/64; PULSE 61; O2SAT 96
--- NOTE | 2024-11-23 09:05 | PM.URSON ---
Urology Surgery Operative Note Operative Note Procedure Date: 11/23/24 Time Out Performed: yes Pre-op Diagnosis: History of high-grade invasive TCC of the bladder; status post external beam radiation therapy Post-op Diagnosis: same as pre-op Procedures performed: 1. Cystoscopy. 2. Urethral dilation with Mason sounds to 30 Maldivian. 3. Bladder wash for FISH and cytology Anesthesia: local Primary Surgeon: Moises Julien Complications: None Estimated blood loss (mL): 5 Findings: 1. Recurrent bulbar urethral stricture. 2. No new barrera bladder tumors. 3. Erythematous slightly raised mucosa along the back wall and dome Specimens: Bladder wash for FISH and cytology Drains: 20 Maldivian Saldaña catheter Indications for Procedures: This gentleman has a history of high-grade invasive TCC of the bladder which started in 2019. He ultimately had a high-grade recurrence with invasion into the muscle in 2023. He then underwent external beam radiation therapy and cisplatin therapy. He now presents for surveillance cystoscopy. He has signed an informed consent after risks were explained. Detailed description of Procedure: Patient was kept on the [facility] bed and brought into the endoscopy suite. Timeout was done by all parties in the room. Genitalia were sterilely prepped and draped in the usual fashion. 2% lidocaine gel was passed per urethra. I started by passing a flexible cystoscope per urethra and as I arrived at his prior stricture site near the bulb I was unable to get the scope through it. A wire was passed through the scope and into the bladder. The scope was removed. I then used Mason sounds and dilated him up to 30 Maldivian. The scope was then repassed. The strictured site was now open but bleeding. Panendoscopy in the bladder revealed some erythematous raised areas on the back wall and at the dome. None of these were barrera tumors. No other abnormalities were noted throughout the rest of the mucosa. A vigorous wash was taken and sent for cytology and FISH. The scope was then removed. A 20 Maldivian Saldaña catheter was then placed in the bladder. 10 cc of fluid was placed in the balloon. It drained a blood-tinged color. He was then discharged to home.
== END 2024-11-23 09:26 | disposition home or self-care (01) ==
PROVIDERS: PCP Internal Medicine; Visit Provider Urology
PROC: (CPT 52281; principal; 2024-11-23 08:15)
DX: N35.912 Unspecified bulbous urethral stricture, male (principal); Z85.51 Personal history of malignant neoplasm of bladder; I25.10 Atherosclerotic heart disease of native coronary artery without angina pectoris; I25.2 Old myocardial infarction; N40.0 Benign prostatic hyperplasia without lower urinary tract symptoms; Z85.038 Personal history of other malignant neoplasm of large intestine; R31.9 Hematuria, unspecified; E78.5 Hyperlipidemia, unspecified
CPT/HCPCS: 52281; 88112; 99999

== ENCOUNTER 2025-02-10 13:45 | Outpatient (OUT) | payer MEDICARE, SELFPAY ==
--- NOTE | 2025-02-10 14:10 | XR_ITS ---
[facility] [place] [id number] Patient Name: JANIE KONG MRN: [id number] date: 1935 Sex: M Assigned Patient Location: [facility] Current Patient Location: [facility] Accession/Order Number: [id number] Exam Date: 02/10/2025 15:06 Report Date: 02/10/2025 15:07 At the request of: LESA ESTRELLA DO Procedure: XR chest 2V Plain film chest 2 view HISTORY: Cough for one and half weeks COMPARISON: 11/29/2023 FINDINGS: SUPPORT DEVICES: None POSTSURGICAL CHANGES: None HEART: Within normal limits PULMONARY ROB: Within normal limits MEDIASTINUM: Unremarkable LUNGS AND PLEURA: No acute lung process, pleural effusion or pneumothorax identified. BONY STRUCTURES: Thoracic hyperostosis ADDITIONAL FINDINGS None XR/XR chest 2V IMPRESSION: No acute process. Impression dictated by: Randal Villarreal M.D.02/10/2025 3:07 PM Dictation Location: [place] [address] Electronically authenticated by: [id number] Y Date: 02/10/2025 15:07
== END 2025-02-10 13:46 | disposition home or self-care (01) ==
LOC: RAD 13:47
PROVIDERS: PCP Internal Medicine; Visit Provider Internal Medicine
DX: R05.9 Cough, unspecified (principal)
CPT/HCPCS: 71046

== ENCOUNTER 2025-06-03 12:31 | Day surgery (SDC) | payer MEDICARE, SELFPAY ==
--- OUTSIDE RECORDS SUMMARY | 2025-06-03 12:34 | XMS_ITS | Encounter Summary ---
Author Organization [facility] Address [address] [place] [address] Phone Care Team Providers Care Production Quality Manager Name Role Phone Nestor Art DO Primary Care Provider [phone] Nestor Art DO Primary Care Provider [phone] Nestor Art DO Primary Care Provider [phone] Encounter Details Date Type Department Care Team (Late st Contact Info) Description 04/23/2023 Orders Only [facility] [address] [place] [address] Conversion, Onbase Social History Tobacco Use Types Packs/Day Years Used Date Smoking Tobacco: Never Assessed Sex and Gender Information Value Date Recorded Sex Assigned at Not on file Legal Sex Male 1:22 PM EDT Gender Identity Not on file Sexual Orientation Not on file documented as of this encounter Plan of Treatment Upcoming Encounters Date Type Department Care Team (Late st Contact Info) Description 10/27/2025 11:00 AM EST Office Visit [facility] [address] [facility] [address] [place] [address] Adriel Morgan DO [address] [facility] [address] [place] [address] Scheduled Orders Name Type Priority Associated Diagnoses Orde r Schedule OUTSIDE LAB SCAN Lab Ordered: 04/23/2023 documented as of this encounter Visit Diagnoses Not on filedocumented in this encounter Care Teams Production Quality Manager Relationship Specialty Start Date End Date Nestor Art DO PCP - General 04/22/23 11/19/23 Nestor Art DO PCP - General Internal Medicine 11/20/23 03/15/25 Nestor Art DO [address] [place] [address] PCP - General Internal Medicine 03/16/25 documented as of this encounter
--- OUTSIDE RECORDS SUMMARY | 2025-06-03 12:34 | XMS_ITS | Encounter Summary ---
Author Organization [facility] Address [address] [place] [address] Phone Care Team Providers Care Bad Cloth Checker Name Role Phone Nestor Art DO Primary Care Provider Nestor Art DO Primary Care Provider [phone] Encounter Details Date Type Department Care Team (Late st Contact Info) Description 04/23/2024 Scanned Document [facility] [address] [place] [id number] Scanning, Generic Provider Social History Tobacco Use Types Packs/Day Years Used Date Smoking Tobacco: Never Smokeless Tobacco: Never Alcohol Use Standard Drinks/Week Comments Yes 0 (1 standard drink = 0.6 oz pur e alcohol) beer Sex and Gender Information Value Date Recorded Sex Assigned at Not on file Legal Sex Male 1:22 PM EDT Gender Identity Not on file Sexual Orientation Not on file documented as of this encounter Plan of Treatment Upcoming Encounters Date Type Department Care Team (Late st Contact Info) Description 10/27/2025 11:00 AM EST Office Visit [facility] [address] [facility] [address] [place] [address] Adriel Morgan DO [address] [facility] [address] [place], [place] [id number] documented as of this encounter Visit Diagnoses Not on filedocumented in this encounter Additional Health Concerns Assessment Noted Time A fall risk assessment has been complete d for the patient 11/20/2023 9:10 AM EST documented as of this encounter Care Teams Bad Cloth Checker Relationship Specialty Start Date End Date Nestor Art DO PCP - General Internal Medicine 11/20/23 03/15/25 Nestor Art DO [address] [place] [address] PCP - General Internal Medicine 03/16/25 documented as of this encounter
--- OUTSIDE RECORDS SUMMARY | 2025-06-03 12:34 | XMS_ITS | Clinical Summary ---
Author Organization [facility] Address [address] [place] [phone] Care Team Providers Care Communications Station Manager Name Role Phone Jimmy Art MD Primary Care Provider Unavaila ble Allergies No known active allergies Medications Losartan 25 MG tablet Take 1 tablet by mouth daily. Active Active Problems Problem Noted Date Diagnosed Date Abdominal pain, generalized 11/04/2022 Social History Tobacco Use Types Packs/Day Years Used Date Smoking Tobacco: Never Smokeless Tobacco: Never Tobacco Cessation:Counseling Given: Not Answered Alcohol Use Standard Drinks/Week Comments Never 0 (1 standard drink = 0.6 oz pur e alcohol) Sex and Gender Information Value Date Recorded Sex Assigned at Not on file Legal Sex Male 1:10 PM EST Gender Identity Not on file Sexual Orientation Not on file Last Filed Vital Signs Vital Sign Reading Time Taken Comments Blood Pressure 149/76 10/10/2023 4:00 PM EST Pulse 68 10/10/2023 4:00 PM EST Temperature 36.7 C (98.1 F) 10/10/2023 4:00 PM EST Respiratory Rate 17 10/10/2023 4:00 PM EST Oxygen Saturation 99% 10/10/2023 4:00 PM EST Inhaled Oxygen Concentration - - Weight 78.9 kg (174 lb) 11/04/2022 6:46 AM EST p er pt report Height 177.8 cm (5' 10 ) 10/09/2023 10: 34 PM EST Body Mass Index 24.97 11/04/2022 6:46 AM EST Plan of Treatment Health Maintenance Due Date Last Done Comments COLORECTAL CANCER SCREENING DISCUSSION 1981 RSV VACCINE (1 - 1-dose 75+ series) 2011 PNEUMOCOCCAL VACCINE SERIES (2 of 2 - PCV) 10/24/2018 10/24/2017 COVID-19 VACCINE ( season) 2024 08/30/2022, 01/19/2022, 06/09/2021, Additional history exists INFLUENZA VACCINE (#1) 2025 , 07/27/2021, 08/03/2019, Additional history exists TETANUS 01/18/2033 01/18/2023 ZOSTER (SHINGLES) VACCINE Completed 2020, 04/14/2021, 10/29/2013 TDAP (ADULT) Completed 01/18/2023 HEP B VACCINE Aged Out No longer elig ible based on patient's age to complete this topic Insurance Medicare A and B Medicare Supplement Advance Directives For more information, please contact: [phone] (7:30 AM - 6PM Yolanda/[facility], Saturday-Saturday) * Full Code (Latest Code Status on File) Date Activated Date Inactivated Comments 11/04/2022 2:12 AM Care Teams Communications Station Manager Relationship Specialty Start Date End Date Jimmy Art MD PCP - General Family Medicine 11/03/22
--- OUTSIDE RECORDS SUMMARY | 2025-06-03 12:34 | XMS_ITS | Clinical Summary ---
Author Organization [facility] Address [address] [place] [address] Care Team Providers [employer] Counter Salesperson Name Role Phone Nestor Art DO Primary Care Provider [phone] Allergies No known active allergies Medications gabapentin (NEURONTIN) 300 MG capsuleIndicati ons:Atypical facial pain Take 1 capsule (300 mg total) by mouth 3 (three) times a day. 90 capsule 3 7 Active Additional Information Patient not taking.Reported on 05/06/2017 lysine 500 mg Tab Take 500 mg by mouth daily. Active Active Problems Problem Noted Date Diagnosed Date Atypical facial pain 05/06/2017 Family History Medical History Relation Comments Cancer Brother Cancer Father Clotting disorder Mother Cancer Sister Relation Status Comments Brother Father Mother Sister Social History Tobacco Use Types Packs/Day Years Used Date Smoking Tobacco: Never Alcohol Use Standard Drinks/Week Comments No 0 (1 standard drink = 0.6 oz pur e alcohol) Sex and Gender Information Value Date Recorded Sex Assigned at Not on file Legal Sex Male 11:26 PM EDT Gender Identity Not on file Sexual Orientation Not on file Last Filed Vital Signs Vital Sign Reading Time Taken Comments Blood Pressure 144/76 05/06/2017 1:42 PM EDT Pulse 75 05/06/2017 1:42 PM EDT Temperature - - Respiratory Rate - - Oxygen Saturation - - Inhaled Oxygen Concentration - - Weight 91.6 kg (202 lb) 05/06/2017 1:42 PM EDT Height 180.3 cm (5' 11 ) 05/06/2017 1:42 PM EDT Body Mass Index 28.17 05/06/2017 1:42 PM EDT Plan of Treatment Health Maintenance Due Date Last Done Comments Tetanus: Every 10yrs 1935 Wellness Visit 1939 Depression Screening/Follow-Up (PHQ-2/9) 1948 Pneumococcal Vaccine: Age 50+ (1 of 1 - PCV) 6 Zoster Vaccines (1 of 2) 1986 Falls Risk Assessment 2001 Respiratory Syncytial Virus Immunization: Risk, 60-74 Risk, or 75+ (1 - 1-dose 75+ series) 2011 COVID-19 Vaccine ( - 2023- season) 2024 Influenza Vaccine (#1) 2025 Insurance * Guarantor: Bette Amasumit Blood Account Type Relation to Patient Date of Phone Billing Address Personal/Family Self 1935 [id number] [place] [address] MEDICARE PART A & B PART A CLAIMS [address] [address] [place] [address] [employer] CHOICE POS/POSII/PREMIER CARE/PREMIER CARE PLUS Care [employer] Parts Counter Salesperson Relationship Specialty Start Date End Date Nestor Art DO [address] [place] [address] [address] [place] [address] PCP - General 05/11/13
--- OUTSIDE RECORDS SUMMARY | 2025-06-03 12:34 | XMS_ITS | Clinical Summary ---
Author Organization [facility] Address [address] [place] [address] Care Team Providers Care Garden Implement Mechanic Name Role Phone Nestor Art Primary Care Provider [phone] Darryl Zacarias MD Unavailable [phone] Suzanne Rodriguez MD Unavailable [phone] Ashlyn Sibley OCCUPATIONAL PHYSICIAN.BANKRUPTCY JUDGE Unavailable [phone] Jana Pierre Unavailable Unavailable Allergies Active Allergy Reactions Criticality Noted Date Comments Amoxicillin Other: See Comments 04/28/2013 Pt gets sores in mouth Medications Fish Oil-DHA-EPA 1,200-144-216 mg cap Take by mouth once daily. Active CARROLL CHEWABLE ASPIRIN 81 mg chewable tablet CHEW 1 TABLET ONCE DAILY 11/20/19 24 Active carvedilol (COREG) 6.25 mg tablet Take 6.25 mg by mouth two times a day with meals. 10/28/19 24 Active clopidogrel (PLAVIX) 75 mg tablet Take 75 mg by mouth once daily. 11/16/19 24 Active rosuvastatin (CRESTOR) 40 mg tablet Take 40 mg by mouth once daily. 12/30/19 24 Active tamsulosin (FLOMAX) 0.4 mg Take 0.4 mg by mouth once daily. 11/18/19 21 Active Catheter ([facility] EXTERNAL CATH) miscIndications: Other urinary incontinence 1 Device once daily. 35 Each 02/12/20 24 Active iv contrast (will be provided with radiology test) CT Chest ABD/PEL-Inject, intravenously, once for 1 dose.No IV access, insert saline lock prior to the beginning of sedation, infusion, injection of imaging exam. Discontinue saline lock post exam. If Pt. has a central line or IVAD, may access for administration according to line specific nursing protocol. Once exam is complete flush line and de-access according to line specific nursing protocol in the CT contrast administration guidelines link. 1 Each 07/01/20 24 Active enteric contrast (will be provided with radiology test) For CT CHESTABD/PEL W IVCON Routine order Administer, As Directed One Time Only, via Oral, Rectal, both Oral and Rectal, Enteric Tube, Stoma or Indwelling Catheter, Enteric Contrast as designated per enteric contrast guidelines 1 Each 07/01/20 24 Active iv contrast (will be provided with radiology test)Indications :Malignant neoplasm of urinary bladder, unspecified site (HCC) CT Chest ABD/PEL-Inject, intravenously, once for 1 dose.No IV access, insert saline lock prior to the beginning of sedation, infusion, injection of imaging exam. Discontinue saline lock post exam. If Pt. has a central line or IVAD, may access for administration according to line specific nursing protocol. Once exam is complete flush line and de-access according to line specific nursing protocol in the CT contrast administration guidelines link. 1 Each 10/28/19 25 Active enteric contrast (will be provided with radiology test)Indications :Malignant neoplasm of urinary bladder, unspecified site (HCC) For CT CHESTABD/PEL W IVCON Routine order Administer, As Directed One Time Only, via Oral, Rectal, both Oral and Rectal, Enteric Tube, Stoma or Indwelling Catheter, Enteric Contrast as designated per enteric contrast guidelines 1 Each 10/28/19 25 Active iv contrast (will be provided with radiology test)Indications :Malignant neoplasm of urinary bladder, unspecified site (HCC),Lung nodules,Stage 3a chronic kidney disease (HCC),Anemia, unspecified type,Malignant neoplasm of overlapping sites of bladder (HCC) CT Chest ABD/PEL-Inject, intravenously, once for 1 dose.No IV access, insert saline lock prior to the beginning of sedation, infusion, injection of imaging exam. Discontinue saline lock post exam. If Pt. has a central line or IVAD, may access for administration according to line specific nursing protocol. Once exam is complete flush line and de-access according to line specific nursing protocol in the CT contrast administration guidelines link. 1 each 01/30/20 Active enteric contrast (will be provided with radiology test)Indications :Malignant neoplasm of urinary bladder, unspecified site (HCC),Lung nodules,Stage 3a chronic kidney disease (HCC),Anemia, unspecified type,Malignant neoplasm of overlapping sites of bladder (HCC) For CT CHESTABD/PEL W IVCON Routine order Administer, As Directed One Time Only, via Oral, Rectal, both Oral and Rectal, Enteric Tube, Stoma or Indwelling Catheter, Enteric Contrast as designated per enteric contrast guidelines 1 each 01/30/20 Active furosemide (LASIX) 20 mg tablet Take 20 mg by mouth at bedtime as needed. 04/07/20 25 026 Active loratadine (CLARITIN) 10 mg tablet Take 10 mg by mouth. 03/05/20 Active losartan (COZAAR) 25 mg tablet Take 25 mg by mouth once daily. Active sildenafil (VIAGRA) 50 mg tablet TAKE 1-2 TABLETS BY MOUTH 1 HR BEFORE SEXUAL ACTIVITY. DO NOT EXCEED 2 TABS/24 HRS. 04/07/20 Active iv contrast (will be provided with radiology test)Indications :Malignant neoplasm of overlapping sites of bladder (HCC) CT Chest ABD/PEL-Inject, intravenously, once for 1 dose.No IV access, insert saline lock prior to the beginning of sedation, infusion, injection of imaging exam. Discontinue saline lock post exam. If Pt. has a central line or IVAD, may access for administration according to line specific nursing protocol. Once exam is complete flush line and de-access according to line specific nursing protocol in the CT contrast administration guidelines link. 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/30/2019 Encounters Date Type Department Care Team Description 05/19/2025 9:30 AM EDT Office Visit Radiation Oncology [address] [place] [address] [place] [address] Suzanne Rodriguez MD 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) 05/19/2025 9:00 AM EDT Visit (SP) Office Hematology/Oncology [address] [place] [address] Darryl Zacarias MD Malignant neoplasm of overlapping sites of bladder (HCC) (Primary Dx); Pulmonary nodule, left; Lung granuloma (HCC); Atherosclerosis of aorta; Personal history of malignant neoplasm of bladder; Acquired absence of organ, urinary bladder 05/19/2025 Travel 05/14/2025 7:10 AM EDT - 05/14/2025 11:59 PM EDT Hospital Encounter Radiology Pet CT [address] [place] [address] Malignant neoplasm of urinary bladder, unspecified site (HCC) [C67.9] Discharge Disposition: Home 05/11/2025 Travel from Last 3 Months Immunizations Immunization Administration Dates Next Due AS03 adjuvant 07/15/2018 Bacillus Calmette-Lindsay (BC G) vaccine (ADELAIDE BCG) 09/26/2020,09/12/2020,09/05/2020,08/29,08/15/2020,08/08/2020 COVID-19 original vaccine, a ge 12+ yr, monovalent (PFIZER-BIONTECH - GUPTA TOP) 01/19/2022 COVID-19 original vaccine, a ge 12+ yr, monovalent (PFIZER-BIONTECH - PURPLE TOP) 01/19/2022,06/09/2021,12/02/2020,11/10 COVID-19 original vaccine, a ge 5 yr - 11 yr, monovalent (PFIZER-BIONTECH) 08/30/2022 COVID-19 vaccine, age 12+ yr , bivalent (PFIZER-BIONTECH) 08/30/2022 diphtheria tetanus pertussis (DTaP) vaccine, unspecified formulation 07/31/2021 influenza (HD-IIV3) vaccine, age 65+ yr, high dose, trivalent, PF (FLUZONE HIGH-DOSE) 09/11/2024,07/08/2023 influenza (IIV3) vaccine, tr ivalent (AFLURIA, FLULAVAL, FLUVIRIN, FLUZONE) 08/03/2019 influenza (IIV3) vaccine, tr ivalent, PF (AFLURIA, FLUARIX, FLULAVAL, FLUVIRIN, FLUZONE) 07/27/2021 influenza (LAIV) vaccine, na vincent, unspecified formulation 07/08/2023,07/02/2022,07/31/2021,07/01,07/15/2019,07/15/2018,06/27/2016 influenza (aIIV3) vaccine, a ge 65+ yr, trivalent, PF (FLUAD) 07/15/2018 influenza (aIIV4) vaccine, a ge 65+ yr, quadrivalent, PF (FLUAD QUAD) 07/02/2022 influenza vaccine, split virus ,07/01/2020,07/15/2019,07/15,06/27/2016 influenza vaccine, unspecifi ed formulation 07/08/2023,07/02/2022,07/31/2021,07/01,07/15/2019,06/27/2016 pneumococcal conjugate (PCV1 3) vaccine, 13 valent (PREVNAR 13) 06/27/2016 pneumococcal conjugate (PCV2 0) vaccine, 20 valent (PREVNAR 20) 04/24/2024 pneumococcal polysaccharide (PPV23) vaccine, 23 valent (PNEUMOVAX 23) 10/24/2017 respiratory syncytial virus (RSV) vaccine, adjuvanted (AREXVY) 12/27/2024 tetanus diphtheria pertussis (Tdap) vaccine, age 7+ yr (ADACEL, BOOSTRIX) 01/18/2023 zoster (RZV) vaccine, recomb inant (SHINGRIX) 10/01/2021,04/14/2021 zoster (ZVL) vaccine, live (ZOSTAVAX) 10/29/2013 Family History Medical History Relation Comments Colon Cancer Brother Colon Cancer Father Diabetes Mother Ovarian cancer Sister Relation Status Comments Brother Father Mother Sister Social History Tobacco Use Types Packs/Day Years Used Date Smoking Tobacco: Never Smokeless Tobacco: Never Tobacco Cessation:Counseling Given: Not Answered Alcohol Use Standard Drinks/Week Comments Yes 0 (1 standard drink = 0.6 oz pur e alcohol) beer rarely PHQ-2 Answer Date Recorded PHQ-2 score 0 05/19/2025 Area Deprivation Index Answer Date Terrell rded National Score (1-100), lowe r number is lower risk 60 12/31/2023 State Score (1-10), lower nu mber is lower risk 4 12/31/2023 Data from: https://www.neighborhoodatlas.medicine[facility].e du/. Last address used for calculation [address] 12/31/2023 Sex and Gender Information Value Date Recorded Sex Assigned at Not on file Legal Sex Male 10:14 AM EST Gender Identity Not on file Sexual Orientation Not on file Last Filed Vital Signs Vital Sign Reading Time Taken Comments Blood Pressure 136/64 05/19/2025 8:51 AM EDT Pulse 68 05/19/2025 8:51 AM EDT Temperature 36.2 C (97.1 F) 05/19/2025 8:51 AM EDT Respiratory Rate 16 05/19/2025 8:51 AM EDT Oxygen Saturation 99% 05/19/2025 8:51 AM EDT Inhaled Oxygen Concentration - - Weight 93.2 kg (205 lb 7.5 oz) 05/19/2025 8:51 A M EDT Height 178.4 cm (5' 10.24 ) 05/19/2025 8:51 AM E DT Body Mass Index 29.28 05/19/2025 8:51 AM EDT Plan of Treatment Upcoming Encounters Date Type Department Care Team (Latest Contact Info) Description 11/22/2025 9:45 AM EST Appointment Radiology Pet CT [address] [place] [address] Ct CAP with contrast and lab 11/29/2025 10:00 AM EST Visit (SP) Office Hematology/Oncology [address] [place] [address] Darryl Zacarias MD [address] [place] [address] and lab results Health Maintenance Due Date Last Done Comments Anxiety Screening 1953 Depression Screening 1953 Medicare Annual Wellness Visit 03/21/2003 Advance Directive Discussion 10/21/2024 Influenza Vaccine (#1) 2025 4, 07/08/2023, 07/08/2023, Additional history exists Diabetes Screening 05/14/2028 05/14/2025, 0 01/18/2025, 09/30/2024, Additional history exists DTaP,Tdap,Td Vaccine (3 - Td or Tdap) 01/18/2033 01/18/2023, 07/31/2021 Shingrix Vaccine Completed 10/01/2021, , 10/29/2013 Pneumococcal Vaccine: 50+ Completed 2023, 10/24/2017, 06/27/2016 RSV Vaccine Completed 12/27/2024 Procedures Procedure Name Priority Date/Time Associated Diagnosis Comments CT CHEST W IVCON Routine 05/14/2025 9:02 AM EDT Malignant neoplasm of urinary bladder, unspecified site (HCC) Lung nodules Stage 3a chronic kidney disease (HCC) Anemia, unspecified type Malignant neoplasm of overlapping sites of bladder (HCC) CT ABD/PEL W IVCON Routine 05/14/2025 9: 02 AM EDT Malignant neoplasm of urinary bladder, unspecified site (HCC) Lung nodules Stage 3a chronic kidney disease (HCC) Anemia, unspecified type Malignant neoplasm of overlapping sites of bladder (HCC) CBC + DIFF Routine 05/14/2025 7:12 AM EDT Malignant neoplasm of urinary bladder, unspecified site (HCC) Lung nodules Stage 3a chronic kidney disease (HCC) Anemia, unspecified type Malignant neoplasm of overlapping sites of bladder (HCC) COMPREHENSIVE METABOLIC PANEL Routine 05/14/2025 7:12 AM EDT Malignant neoplasm of urinary bladder, unspecified site (HCC) Lung nodules Stage 3a chronic kidney disease (HCC) Anemia, unspecified type Malignant neoplasm of overlapping sites of bladder (HCC) IRON + TIBC Routine 05/14/2025 7:12 AM EDT Malignant neoplasm of urinary bladder, unspecified site (HCC) Lung nodules Stage 3a chronic kidney disease (HCC) Anemia, unspecified type Malignant neoplasm of overlapping sites of bladder (HCC) FERRITIN BLD Routine 05/14/2025 7:12 AM EDT Malignant neoplasm of urinary bladder, unspecified site (HCC) Lung nodules Stage 3a chronic kidney disease (HCC) Anemia, unspecified type Malignant neoplasm of overlapping sites of bladder (HCC) VITAMIN B12 BLOOD Routine 05/14/2025 7:1 2 AM EDT Malignant neoplasm of urinary bladder, unspecified site (HCC) Lung nodules Stage 3a chronic kidney disease (HCC) Anemia, unspecified type Malignant neoplasm of overlapping sites of bladder (HCC) FOLATE SERUM Routine 05/14/2025 7:12 AM EDT Malignant neoplasm of urinary bladder, unspecified site (HCC) Lung nodules Stage 3a chronic kidney disease (HCC) Anemia, unspecified type Malignant neoplasm of overlapping sites of bladder (HCC) from Last 3 Months Results * CT ABD/PEL W IVCON (05/14/2025 9:02 AM EDT) Anatomical Region Laterality Modality Abdomen Nuclear Medicine , Nuclear Medicine 05/14/2025 9:02 AM EDT Impressions 05/14/2025 1:36 PM EDT IMPRESSION: No metastatic disease in the abdomen or pelvis. Transcribe Date/Time: May 14 2025 1:26P Dictated by: JASWINDER DICKERSON MD This examination was interpreted and the report reviewed and electronically signed by: JASWINDER DICKERSON MD on May 14 2025 1:34PM EST Thank you for allowing us to participate in the care of your patient. Should there be any questions regarding this interpretation, please call [phone]. If you are unable to reach us at the number above, please feel free to contact [facility]Radiology at [phone]. Narrative 05/14/2025 1:36 PM EDT * * *Final Report* * * DATE OF EXAM: May 14 2025 9:02AM [facility] 0530 - CT ABD/PEL W IVCON / PROCEDURE REASON: multiple diagnoses * * * * Physician Interpretation * * * * RESULT: EXAMINATION: CT ABDOMEN AND PELVIS WITH IV CONTRAST PATIENT/TECHNOLOGIST PROVIDED HISTORY: bladder cancer CLINICAL INFORMATION ( PROVIDED BY ORDERING CLINICIAN) : Malignant neoplasm of urinary bladder, unspecified site (HCC) Lung nodules Stage 3a chronic kidney disease (HCC) Anemia, unspecified type TECHNIQUE: CT of the abdomen and pelvis was performed using standard technique, scanning from just above the dome of the diaphragm to the pubic symphysis. . Contrast: IV: 100 ml of Omnipaque 350 Oral: 500 ml of Omni 240 10-25ml diluted with water CT Radiation dose: Integrated Dose-length product (DLP) for this visit = 925 mGy*cm. CT Dose Reduction Employed: Automated exposure control (AEC) COMPARISON: CT abdomen pelvis 01/29/2025 09/30/2024 Abdomen / Pelvis: Liver: Unchanged hepatic cysts. No new lesions. Spleen: Calcified granulomas. Pancreas: No focal pancreatic lesions. Adrenals: No mass. Biliary: No bile duct dilation. No gallbladder wall thickening. Kidneys: Symmetric nephrograms bilaterally without hydronephrosis. Left parapelvic cysts. Vasculature: The celiac axis and SMA are patent. The portal vein and branches, splenic vein, SMV, and hepatic veins are patent. Moderate atherosclerotic calcifications of the abdominal aorta without aneurysm. GI tract: End to side colorectal anastomosis. No bowel obstruction. Rectal wall thickening may be related to radiation therapy. Lymph nodes: No lymphadenopathy by CT size criteria. Mesentery/Peritoneum: No ascites, fluid collection, or mass. Pelvis: Circumferential bladder wall thickening and perivesical fat stranding. Enlarged prostate gland. Bones/Soft tissues: No aggressive osseous lesions. Lower thorax: Dedicated CT imaging of the chest was performed concurrently and is dictated separately. Small Stock Facer (topogram) images: Unremarkable. Procedure Note Provider, [facility] [place] - 05/14/2025 * * *Final Report* * * DATE OF EXAM: May 14 2025 9:02AM [facility] 0530 - CT ABD/PEL W IVCON / PROCEDURE REASON: multiple diagnoses * * * * Physician Interpretation * * * * RESULT: EXAMINATION: CT ABDOMEN AND PELVIS WITH IV CONTRAST PATIENT/TECHNOLOGIST PROVIDED HISTORY: bladder cancer CLINICAL INFORMATION ( PROVIDED BY ORDERING CLINICIAN) : Malignant neoplasm of urinary bladder, unspecified site (HCC) Lung nodules Stage 3a chronic kidney disease (HCC) Anemia, unspecified type TECHNIQUE: CT of the abdomen and pelvis was performed using standard technique, scanning from just above the dome of the diaphragm to the pubic symphysis. . Contrast: IV: 100 ml of Omnipaque 350 Oral: 500 ml of Omni 240 10-25ml diluted with water CT Radiation dose: Integrated Dose-length product (DLP) for this visit = 925 mGy*cm. CT Dose Reduction Employed: Automated exposure control (AEC) COMPARISON: CT abdomen pelvis 01/29/2025 09/30/2024 Abdomen / Pelvis: Liver: Unchanged hepatic cysts. No new lesions. Spleen: Calcified granulomas. Pancreas: No focal pancreatic lesions. Adrenals: No mass. Biliary: No bile duct dilation. No gallbladder wall thickening. Kidneys: Symmetric nephrograms bilaterally without hydronephrosis. Left parapelvic cysts. Vasculature: The celiac axis and SMA are patent. The portal vein and branches, splenic vein, SMV, and hepatic veins are patent. Moderate atherosclerotic calcifications of the abdominal aorta without aneurysm. GI tract: End to side colorectal anastomosis. No bowel obstruction. Rectal wall thickening may be related to radiation therapy. Lymph nodes: No lymphadenopathy by CT size criteria. Mesentery/Peritoneum: No ascites, fluid collection, or mass. Pelvis: Circumferential bladder wall thickening and perivesical fat stranding. Enlarged prostate gland. Bones/Soft tissues: No aggressive osseous lesions. Lower thorax: Dedicated CT imaging of the chest was performed concurrently and is dictated separately. Small Stock Facer (topogram) images: Unremarkable. IMPRESSION IMPRESSION: No metastatic disease in the abdomen or pelvis. Transcribe Date/Time: May 14 2025 1:26P Dictated by: JASWINDER DICKERSON MD This examination was interpreted and the report reviewed and electronically signed by: JASWINDER DICKERSON MD on May 14 2025 1:34PM EST Thank you for allowing us to participate in the care of your patient. Should there be any questions regarding this interpretation, please call [phone]. If you are unable to reach us at the number above, please feel free to contact [facility] at [phone]. us Darryl Zacarias MD CT-PAMA Final Result * CT CHEST W IVCON (05/14/2025 9:02 AM EDT) Anatomical Region Laterality Modality Chest Nuclear Medicine , Nuclear Medicine 05/14/2025 9:02 AM EDT Impressions 05/14/2025 1:27 PM EDT IMPRESSION: No metastatic disease in the chest. Transcribe Date/Time: May 14 2025 1:13P Dictated by: JASWINDER DICKERSON MD This examination was interpreted and the report reviewed and electronically signed by: JASWINDER DICKERSON MD on May 14 2025 1:25PM EST Thank you for allowing us to participate in the care of your patient. Should there be any questions regarding this interpretation, please call [phone]. If you are unable to reach us at the number above, please feel free to contact [facility] at [phone]. Narrative 05/14/2025 1:27 PM EDT * * *Final Report* * * DATE OF EXAM: May 14 2025 9:02AM [facility] 0539 - CT CHEST W IVCON / PROCEDURE REASON: multiple diagnoses * * * * Physician Interpretation * * * * RESULT: EXAMINATION: CHEST CT WITH CONTRAST CLINICAL HISTORY: Malignant neoplasm of urinary bladder, unspecified site (HCC) Lung nodules Stage 3a chronic kidney disease (HCC) Anemia, unspecified type Technique: Spiral CT acquisition of the chest from the thoracic inlet to the upper abdomen following IV contrast. MQ: CTCWR_5 Contrast: 100 mL Omnipaque [address] Dose-Length Product: 925 mGy*cm CT Dose Reduction Employed: Automated exposure control (AEC) Comparison: 01/29/2025 and 09/30/2024 RESULT: Lines, tubes, and devices: None. Lung parenchyma and airways: Trachea and central airways are patent. Unchanged scattered pulmonary nodules. Index nodules are as follows: * 4 mm nodule left upper lobe (image 58) * 4 mm nodule along left major fissure (image 116) may reflect a small granuloma * 5 mm nodule left lower lobe (image 153) Scattered calcified granulomas. Pleural space: No pleural effusion or pneumothorax. Lower neck, lymph nodes, and mediastinum: No axillary, supraclavicular, mediastinal or hilar lymphadenopathy by CT size criteria. Heart, pericardium, and thoracic vessels: The heart is normal in size. No pericardial effusion. The thoracic aorta and main pulmonary artery are normal in caliber. Atherosclerotic calcifications of the thoracic aorta and coronary arteries. Bones/Soft Tissues: No aggressive osseous lesions. Upper abdomen: Dedicated CT imaging of the abdomen and pelvis was performed concurrently and is dictated separately. Small Stock Facer (topogram) images: Unremarkable. Procedure Note Provider, [facility] [place] - 05/14/2025 * * *Final Report* * * DATE OF EXAM: May 14 2025 9:02AM [facility] 0539 - CT CHEST W IVCON / PROCEDURE REASON: multiple diagnoses * * * * Physician Interpretation * * * * RESULT: EXAMINATION: CHEST CT WITH CONTRAST CLINICAL HISTORY: Malignant neoplasm of urinary bladder, unspecified site (HCC) Lung nodules Stage 3a chronic kidney disease (HCC) Anemia, unspecified type Technique: Spiral CT acquisition of the chest from the thoracic inlet to the upper abdomen following IV contrast. MQ: CTCWR_5 Contrast: 100 mL Omnipaque [address] Dose-Length Product: 925 mGy*cm CT Dose Reduction Employed: Automated exposure control (AEC) Comparison: 01/29/2025 and 09/30/2024 RESULT: Lines, tubes, and devices: None. Lung parenchyma and airways: Trachea and central airways are patent. Unchanged scattered pulmonary nodules. Index nodules are as follows: * 4 mm nodule left upper lobe (image 58) * 4 mm nodule along left major fissure (image 116) may reflect a small granuloma * 5 mm nodule left lower lobe (image 153) Scattered calcified granulomas. Pleural space: No pleural effusion or pneumothorax. Lower neck, lymph nodes, and mediastinum: No axillary, supraclavicular, mediastinal or hilar lymphadenopathy by CT size criteria. Heart, pericardium, and thoracic vessels: The heart is normal in size. No pericardial effusion. The thoracic aorta and main pulmonary artery are normal in caliber. Atherosclerotic calcifications of the thoracic aorta and coronary arteries. Bones/Soft Tissues: No aggressive osseous lesions. Upper abdomen: Dedicated CT imaging of the abdomen and pelvis was performed concurrently and is dictated separately. Small Stock Facer (topogram) images: Unremarkable. IMPRESSION IMPRESSION: No metastatic disease in the chest. Transcribe Date/Time: May 14 2025 1:13P Dictated by: JASWINDER DICKERSON MD This examination was interpreted and the report reviewed and electronically signed by: JASWINDER DICKERSON MD on May 14 2025 1:25PM EST Thank you for allowing us to participate in the care of your patient. Should there be any questions regarding this interpretation, please call [phone]. If you are unable to reach us at the number above, please feel free to contact [facility]Radiology at [phone]. us Darryl Zacarias MD CT-[facility]AMA Final Result * VITAMIN B12 (05/14/2025 7:12 AM EDT) Vitamin B12 797 232 - 1,245 pg/mL 05/14/2025 5:[address] [facility] Blood BLOOD SPECIMEN / Unknown Venipuncture / Unknown 05/14/2025 7:12 AM EDT 05/14/2025 7:31 AM EDT us Darryl Zacarias MD LABORATORY Final Result Performing Organization Address City/[facility]/ZIP Co de Phone Number [facility] [address] [place] [address], [place] * IRON AND TIBC (05/14/2025 7:12 AM EDT) Pathologist [facility] Iron 82 41 - 186 ug/dL 05/14/2025 5:[address] [facility] TIBC 270 232 - 386 ug/dL 05/14/2025 5:[address] [facility] Transferrin Saturation 30.4 15.0 - 57.0 % 05/14/2025 5:[address] [facility] Blood BLOOD SPECIMEN / Unknown Venipuncture / Unknown 05/14/2025 7:12 AM EDT 05/14/2025 7:31 AM EDT us Darryl Zacarias MD LABORATORY Final Result [facility] [address] [place] [id number], [place] * FOLATE, SERUM (05/14/2025 7:12 AM EDT) Pathologist [facility] Folate >20.0 >4.7 ng/mL 05/14/2025 5:[address] [facility] Comment: A result of > 20 ng/mL is not necessarily indicative of a pathologic or treatable condition: it reflects a limitation of the test methodology. Assay reference range: 4.8 to 24.2 ng/mL. Suitable for detection of folate deficiency. Reference: Folate III (Folate III) [package insert V 1.0 Khmer]. [facility], [place], [place]: August 2015. Blood BLOOD SPECIMEN / Unknown Venipuncture / Unknown 05/14/2025 7:12 AM EDT 05/14/2025 7:31 AM EDT us Darryl Zacarias MD LABORATORY Final Result Performing Organization Address City/[facility]/ZIP Co de Phone Number [facility] [address] [place] [address], [place] * FERRITIN (05/14/2025 7:12 AM EDT) Pathologist [facility] Ferritin 70.1 30.3 - 565.7 ng/mL 05/14/2025 5:[address] [facility] Blood BLOOD SPECIMEN / Unknown Venipuncture / Unknown 05/14/2025 7:12 AM EDT 05/14/2025 7:31 AM EDT us Darryl Zacarias MD LABORATORY Final Result Performing Organization Address City/[facility]/ZIP Co de Phone Number [facility] [address] [place] [address], [place] * (ABNORMAL) COMPREHENSIVE METABOLIC PANEL (05/14/2025 7:12 AM EDT) Protein, Total 6.8 6.3 - 8.0 g/dL 05/14/2025 8:01 AM EDT [facility] Albumin 4.1 3.9 - 4.9 g/dL 05/14/2025 8:01 AM EDT [facility] Calcium, Total 9.4 8.5 - 10.2 mg/dL 05/14/2025 8:01 AM [facility] Bilirubin, Total 0.3 0.2 - 1.3 mg/dL 05/14/2025 8:01 AM [facility] Alkaline Phosphatase 70 38 - 113 U/L 05/14/2025 8:01 AM [facility] AST 18 14 - 40 U/L 05/14/2025 8:01 AM [facility] ALT 16 10 - 54 U/L 05/14/2025 8:01 AM [facility] Glucose 106(H) 74 - 99 mg/dL 05/14/2025 8:01 AM [facility] Comment: The [place] Diabetes Association (ADA) provides guidance for cutoff [...] Standards of Medical Care in Diabetes 2016, [place] Diabetes Association. Diabetes Care. 2016.39(Suppl 1). BUN 24 9 - 24 mg/dL 05/14/2025 8:01 AM [facility] Creatinine 0.95 0.73 - 1.22 mg/dL 05/14/2025 8:01 AM [facility] Sodium 142 136 - 144 mmol/L 05/14/2025 8:01 AM [facility] Potassium 3.9 3.7 - 5.1 mmol/L 05/14/2025 8:01 AM [facility] Chloride 105 98 - 107 mmol/L 05/14/2025 8:01 AM [facility] CO2 26 22 - 30 mmol/L 05/14/2025 8:01 AM EDT [facility] Anion Gap 11 8 - 15 mmol/L 05/14/2025 8:01 AM EDT [facility] Estimated Glomerular Filtration Rate 77 >=60 mL/min/1. 73m 05/14/2025 8:01 AM EDT [facility] Comment:Estimated Glomerular Filtration Rate (eGFR) is calculated using the 2020 CKD-EPI creatinine equation. This equation utilizes serum creatinine, sex, and age as parameters. The creatinine assay has traceable calibration to isotope dilution- mass spectrometry. Refer to KDIGO guidelines for clinical interpretation. In patients with unstable renal function, e.g. those with acute kidney injury, the eGFR may not accurately reflect actual GFR. Blood BLOOD SPECIMEN / Unknown Venipuncture / Unknown 05/14/2025 7:12 AM EDT 05/14/2025 7:31 AM EDT Darryl Zacarias MD LABORATORY Final Result [facility] [address] [place] [address] * (ABNORMAL) COMPLETE BLOOD COUNT AND DIFFERENTIAL (05/14/2025 7:12 AM EDT) WBC 4.55 3.70 - 11.00 k/uL 05/14/2025 7:37 AM EDT [facility] RBC 4.08(L) 4.20 - 6.00 m/uL 05/14/2025 7:37 AM EDT [facility] Hemoglobin 12.5(L) 13.0 - 17.0 g/dL 05/14/2025 7:37 AM EDT [facility] Hematocrit 38.4(L) 39.0 - 51.0 % 05/14/2025 7:37 AM EDT [facility] MCV 94.1 80.0 - 100.0 fL 05/14/2025 7:37 AM EDT [facility] MCH 30.6 26.0 - 34.0 pg 05/14/2025 7:37 AM EDT [facility] MCHC 32.6 30.5 - 36.0 g/dL 05/14/2025 7:37 AM EDT [facility] RDW-CV 12.9 11.5 - 15.0 % 05/14/2025 7:37 AM EDT [facility] Platelet Count 176 150 - 400 k/uL 05/14/2025 7:37 AM EDT [facility] MPV 9.0 9.0 - 12.7 fL 05/14/2025 7:37 AM EDT [facility] Neutrophils % 46.5 % 05/14/2025 7:37 AM EDT [facility] Abs Neut 2.12 1.45 - 7.50 k/uL 05/14/2025 7:37 AM EDT [facility] Lymphocytes % 25.3 % 05/14/2025 7:37 AM EDT [facility] Abs Lymph 1.15 1.00 - 4.00 k/uL 05/14/2025 7:37 AM EDT [facility] Monocytes % 11.9 % 05/14/2025 7:37 AM EDT [facility] Abs [place] 0.54 <0.87 k/uL 05/14/2025 7:37 AM EDT [facility] Eosinophils % 15.2 % 05/14/2025 7:37 AM EDT [facility] Abs Eosin 0.69(H) <0.46 k/uL 05/14/2025 7:37 AM EDT [facility] Basophils % 0.9 % 05/14/2025 7:37 AM EDT [facility] Abs Baso 0.04 <0.11 k/uL 05/14/2025 7:37 AM EDT [facility] Immature Granulocytes % 0.2 % 05/14/2025 7:37 AM EDT [facility] Abs Immature Gran <0.03 <0.10 k/uL 05/14/2025 7:37 AM EDT [facility] NRBC 0.0 /100 WBC 05/14/2025 7:37 AM EDT [facility] Absolute nRBC <0.01 <0.01 k/uL 05/14/2025 7:37 AM EDT [facility] Diff Type Auto 05/14/2025 7:37 AM EDT [facility] Blood BLOOD SPECIMEN / Unknown Venipuncture / Unknown 05/14/2025 7:12 AM EDT 05/14/2025 7:31 AM EDT Darryl Zacarias MD LABORATORY Final Result [facility] [address] [place] [address] from Last 3 Months Insurance MEDICARE [employer] SUPPLEMENT Care Teams Garden Implement Mechanic Relationship Specialty Start Date End Date Nestor Art DO Darvin PCP - General Internal Medicine 01/16/12 Darryl Zacarias MD [address] [place] [address] [place] [address] Physician Hematology/Oncology 01/13/24 Suzanne Rodriguez MD [address] [place] [address] [place] [address] Physician Radiation Oncology 01/13/24 Ashlyn Sibley APRN.[facility] [address] [place] [address] [place] [address] Nurse Practitioner Hematology/Oncology 01/13/24 Jana Pierre LSW Cargo Service Supervisor 02/03/24
--- OUTSIDE RECORDS SUMMARY | 2025-06-03 12:34 | XMS_ITS ---
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 Past Treatment and Therapy Plans NON-CHEMO 1 Plan Name Start Date Discontinue Date Treatment Medications Discontinue Reason Plan Provider Cycles AMB HYDRATION WITH PARAMETERS - ONCE 4 06/26/2024 No medications scheduled. Other Ashlyn Sibley APRN.HEALTHCARE RECRUITER 1 of 1 cycle started ONCOLOGY REGIMEN Plan Name Start Date Discontinue Date Treatment Medications Discontinue Reason Plan Provider Cycles AMB CISPLATIN 40 D1,8,15,22, 29,36,43 - ONCE 4 07/02/2024 CISplatin iv piggyback or iv infusionfosaprepitant (EMEND)palonosetron (ALOXI) Other Daryrl Zacarias MD 1 of 1 cycle started
--- OUTSIDE RECORDS SUMMARY | 2025-06-03 12:34 | XMS_ITS | Clinical Summary ---
Author Organization [facility] Address [address] [place] [address] Care Team Providers Care Radiologic Technology Teacher Name Role Phone Unavailable Primary Care Provider Unavailabl e Social History Tobacco Use Types Packs/Day Years Used Date Smoking Tobacco: Never Assessed Sex and Gender Information Value Date Recorded Sex Assigned at Not on file Legal Sex Male 8:35 PM EDT Gender Identity Not on file Sexual Orientation Not on file Last Filed Vital Signs Vital Sign Reading Time Taken Comments Blood Pressure 127/75 03/15/2020 12:00 PM EDT Pulse - - Temperature - - Respiratory Rate - - Oxygen Saturation - - Inhaled Oxygen Concentration - - Weight 89.4 kg (197 lb) 03/15/2020 12:00 PM EDT Height 180.3 cm (5' 11 ) 03/15/2020 12:00 PM EDT Body Mass Index 27.48 03/15/2020 12:00 PM EDT Plan of Treatment Not on file Insurance MEDICARE
--- OUTSIDE RECORDS SUMMARY | 2025-06-03 12:34 | XMS_ITS | Encounter Summary ---
Author Organization [facility] Address [address] [place] [address] Phone Care Team Providers Care Industrial Relations Manager Name Role Phone Nestor Art DO Primary Care Provider [phone] Nestor Art DO Primary Care Provider Encounter Details Date Type Department Care Team (Late st Contact Info) Description 03/25/2024 Scanned Document [facility] [address] [place] [id number] Scanning, Generic Provider Social History Tobacco Use [...] Description 10/27/2025 11:00 AM EST Office Visit [facility] [address] [facility] [address] [place] [address] Adriel Morgan DO [address] [facility] [address] [place], [place] [id number] documented as of this encounter Visit Diagnoses Not on filedocumented in this encounter Additional Health Concerns Assessment Noted Time A fall risk assessment has been complete d for the patient 11/20/2023 9:10 AM EST documented as of this encounter Care Teams Industrial Relations Manager Relationship Specialty Start Date End Date Nestor Art DO PCP - General Internal Medicine 11/20/23 03/15/25 Nestor Art DO [address] [place] [address] PCP - General Internal Medicine 03/16/25 documented as of this encounter
--- OUTSIDE RECORDS SUMMARY | 2025-06-03 12:34 | XMS_ITS | Encounter Summary ---
Author Organization [facility] Address [address] [place] [address] Phone Care Team Providers Care Doctorate Of Chiropractic Name Role Phone RubensNestor Darvin DO Primary Care Provider [phone] Nestor Art DO Primary Care Provider [phone] Reason for Visit * Reason Comments Med Refill Encounter Details Date Type Department Care Team (Late st Contact Info) Description 01/03/[address] [place] [address] Adriel Morgan DO [address] [place] [address] [address] [place] [address] Atherosclerosis of um[place]illa tribe coronary artery, unspecified whether angina present, unspecified whether um[place]illa tribe or transplanted heart; Stented coronary artery; Non-ST elevation myocardial infarction (NSTEMI) (Multi) Social History Tobacco Use Types Packs/Day Years [...] Description 10/27/2025 11:00 AM EST Office Visit [address] [place] [address] Adriel Morgan DO [address] [facility] [address] [place] [address] documented as of this encounter Visit Diagnoses Diagnosis Atherosclerosis of um[place]illa tribe coronary artery, unspecified whether angina present, unspecified whether um[place]illa tribe or transplanted heart 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 Non-ST elevation myocardial infarction (NSTEMI) (Multi) Acute myocardial infarction, subendocardial infarction, episode of care unspecified documented in this encounter Additional Health Concerns Assessment Noted Time A fall risk assessment has been complete d for the patient 11/20/2023 9:10 AM EST documented as of this encounter Care Teams Doctorate Of Chiropractic Relationship Specialty Start Date End Date Nestor Art DO PCP - General Internal Medicine 11/20/23 03/15/25 Nestor Art DO [facility] [place] [address] PCP - General Internal Medicine 03/16/25 documented as of this encounter
--- OUTSIDE RECORDS SUMMARY | 2025-06-03 12:34 | XMS_ITS | Encounter Summary ---
Author Organization [facility] Address [address] [place] [address] Phone Care Team Providers Care High School English Teacher Name Role Phone Nestor Art DO Primary Care Provider [phone] Nestor Art DO Primary Care Provider [phone] Encounter Details Date Type Department Care Team (Late st Contact Info) Description 01/18/2025 Scanned Document [facility] [address] [place] [phone] Scanning, Generic Provider Social History Tobacco Use [...] Description 10/27/2025 11:00 AM EST Office Visit [facility] [address] [facility] [address] [place] [address] Adriel Morgan DO [address] [facility] [address] [place], [place] [id number] documented as of this encounter Visit Diagnoses Not on filedocumented in this encounter Additional Health Concerns Assessment Noted Time A fall risk assessment has been complete d for the patient 11/20/2023 9:10 AM EST documented as of this encounter Care Teams High School English Teacher Relationship Specialty Start Date End Date Nestor Art DO PCP - General Internal Medicine 11/20/23 03/15/25 Nestor Art DO [address] [place] [address] PCP - General Internal Medicine 03/16/25 documented as of this encounter
--- OUTSIDE RECORDS SUMMARY | 2025-06-03 12:34 | XMS_ITS | Clinical Summary ---
Author Organization [facility] Address [address] [place] [address] Phone Care Team Providers Care Shotgun Shell Assembly Machine Operator Name Role Phone Nestor Art DO Primary Care Provider [phone] Allergies No known active allergies Medications tamsulosin (Flomax) 0.4 mg 24 hr capsule Take 1 capsule (0.4 mg) by mouth once daily. Active rosuvastatin (Crestor) 40 mg tablet Take 1 tablet (40 mg) by mouth once daily. Active acetaminophen (Tylenol 8 HOUR) 650 mg ER tablet Take 1 tablet (650 mg) by mouth every 8 hours if needed for mild pain (1 - 3). Do not crush, chew, or split. Active losartan (Cozaar) 25 mg tablet Take 1 tablet (25 mg) by mouth once daily. Active aspirin 81 mg chewable tabletIndications :Atherosclerosis of [place] coronary artery, unspecified whether angina present, unspecified whether [place] or transplanted heart,Stented coronary artery,Non-ST elevation myocardial infarction (NSTEMI) (Multi) CHEW 1 TABLET ONCE DAILY 90 tablet 3 5 Active loratadine (Claritin) 10 mg tablet Take 1 tablet (10 mg) by mouth once daily. 5 Active furosemide (Lasix) 20 mg tabletIndications :Localized edema Take 1 tablet (20 mg) by mouth once daily as needed (edema). 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 10/24/2023 Hyperlipidemia 10/24/2023 Heart disease, unspecified 10/24/2023 Resolved Problems Problem Noted Date Diagnosed Date Resolved Date History of AR (myocardial infarction) 05/20/2024 03/16/2025 Bladder cancer (Multi) 11/20/202303/16 Myocardial infarction (Multi) 10/24/2023 03/16/2025 Stented coronary artery 10/24/202302/19 Encounters Date Type Department Care Team Description 04/16/[address] [address] Heidi Avila LPN Medication Question 04/07/[address] [address] Christy Love APRN-DESTINY Localized edema 03/31/2025 8:30 AM EDT Office Visit [address] [address] Christy Love APRN-DESTINY BMI 26.0-26.9,adult (Primary Dx); Localized edema 03/31/[address] [address] Thania Billy LPN Med Refill 03/31/2025 Travel 03/17/[address] [address] Heidi Avila LPN Results 03/17/2025 Orders Only [facility] [address] [place] [address] Christy Love APRN-DESTINY 03/16/2025 1:30 PM EDT Office Visit [address] [address] Christy Love APRN-SPECIAL EDUCATION PARA PROFESSIONAL Mixed hyperlipidemia (Primary Dx); Atherosclerosis of [place] coronary artery, unspecified whether angina present, unspecified whether [place] or transplanted heart; Essential (primary) hypertension; BMI 27.0-27.9,adult; Localized edema 03/16/2025 Scanned Document [facility] [address] [place] [place] [address] Scanning, Generic Provider 03/16/2025 Telephone [facility] [address] [facility] [address] [place] [address] Christy Love, PLUSH WEAVER-SPECIAL EDUCATION PARA PROFESSIONAL 03/12/2025 Travel from Last 3 Months Immunizations Immunization Administration Dates Next Due Flu vaccine, trivalent, pres ervative free, HIGH-DOSE, age 65y+ (Fluzone) 09/11/2024 Pneumococcal conjugate vaccine, 13-valent (PREVN AR 13) 06/27/2016 Pneumococcal conjugate vaccine, 20-valent (PREVN AR 20) 04/24/2024 Pneumococcal polysaccharide vaccine, 23-valent, age 2 years and older (PNEUMOVAX 23) 10/24/2017 RSV, 60 Years And Older (AREXVY) 12/27/2024 Tdap vaccine, age 7 year and older (BOOSTRIX, AD ACEL) 01/18/2023 Zoster vaccine, recombinant, adult (SHINGRIX) ,04/14/2021 Family History Medical History Relation Name Comments Colon cancer Father Diabetes Mother Relation Name Status Comments Father Mother Social History Tobacco Use Types Packs/Day Years Used Date Smoking Tobacco: Never Smokeless Tobacco: Never Tobacco Cessation:Counseling Given: Not Answered Alcohol Use Standard Drinks/Week Comments Yes 0 (1 standard drink = 0.6 oz pur e alcohol) not very often Sex and Gender Information Value Date Recorded Sex Assigned at Not on file Legal Sex Male 1:22 PM EDT Gender Identity Not on file Sexual Orientation Not on file Last Filed Vital Signs Vital Sign Reading Time Taken Comments Blood Pressure 120/70 03/31/2025 8:20 AM EDT Pulse 68 03/31/2025 8:20 AM EDT Temperature - - Respiratory Rate - - Oxygen Saturation - - Inhaled Oxygen Concentration - - Weight 84.4 kg (186 lb) 03/31/2025 8:20 AM EDT Height 177.8 cm (5' 10 ) 03/31/2025 8:20 AM EDT Body Mass Index 26.69 03/31/2025 8:20 AM EDT Plan of Treatment Upcoming Encounters Date Type Department Care Team (Late st Contact Info) Description 10/27/2025 11:00 AM EST Office Visit [facility] [address] [facility] [address] [place] [address] George Jacobs, [address] [facility] [address] [place] [address] Health Maintenance Due Date Last Done Comments Creatinine Level 1935 Lipid Panel 1935 Medicare Annual Wellness Vis it (AWV) 1935 Potassium Level 1935 Echocardiogram 06/25/2024 06/25/2023 Diabetes Screening 10/09/2024 10/09/2023 COVID-19 Vaccine (2023-2 5 season) 2025 09/11/2024, 08/30/2022, 01/19/2022 Influenza Vaccine (#1) 2025 09/11/2024 DTaP/Tdap/Td Vaccines (2 - T d or Tdap) 01/18/2033 01/18/2023 Zoster Vaccines Completed 10/01/2021, 04/14/2021 Pneumococcal Vaccine Completed 04/24/2024, 10/24/2017, 06/27/2016 RSV High Risk: (Elderly (60+ ) or Population) Completed 12/27/2024 HIB Vaccines Aged Out No longer eligi ble based on patient's age to complete this topic HPV Vaccines Aged Out No longer eligi ble based on patient's age to complete this topic Hepatitis A Vaccines Aged Out No long er eligible based on patient's age to complete this topic Hepatitis B Vaccines Aged Out No long er eligible based on patient's age to complete this topic IPV Vaccines Aged Out No longer eligi ble based on patient's age to complete this topic Meningococcal Vaccine Aged Out No jack damien eligible based on patient's age to complete this topic Rotavirus Vaccines Aged Out No longer eligible based on patient's age to complete this topic Procedures Procedure Name Priority Date/Time Associated Diagnosis Comments [facility] LOWER EXTREMITY VENOUS DUPLEX LEFT 03/17/2025 10:28 AM EDT ECHOCARDIOGRAM 06/25/2023 12:47 PM EDT from Last 3 Months or Most Recently Relevant to Health Maintenance Results * Vascular US lower extremity venous duplex left (03/17/2025 10:28 AM EDT) Anatomical Region Laterality Modality Ultrasound 03/17/2025 10:2 8 AM EDT Narrative 03/17/2025 10:31 AM EDT [facility] [place] [address] Ultrasound Report Signed Patient: Kennedy Amos MR#: [id number] : 1935 Acct:[id number] Age/Sex: 89 / M ADM Date: 03/16/25 Loc: Room: Type: [facility] Attending Dr: Christy Love APRN Ordering Provider: Christy Love APRN Date of Service: 03/16/25 US/US venous duplex LE LT: LLE EDEMA Copies to: Christy Love APRN LEFT LOWER EXTREMITY VENOUS DUPLEX INDICATION: Swollen left leg Unilateral left lower extremity venous duplex Doppler study was obtained utilizing B-mode, color- flow and spectral Doppler. FINDINGS: The left common femoral, femoral, and popliteal veins showed adequate compressibility, color-flow and augmentation. The left posterior tibial and peroneal veins were compressible, as wel l as proximal greater saphenous vein. The contralateral right common femoral vein was compressible with color-flow and augmentation. US/US venous duplex LE LT IMPRESSION: NO EVIDENCE OF DEEP VENOUS THROMBOSIS IN THE LEFT LOWER EXTREMITY. NO SUPERFICIAL THROMBOPHLEBITIS WAS NOTED. Impression dictated by: Randal Smith M.D. 03/17/2025 10:29 AM Dictation Location: [facility] Tech: Sandee Womack Transcribed By: LIZ 03/17/25 1029 Dictated By: Randal Smith MD 03/17/25 1028 Signed By: <Electronically signed by MD Randal Smith in OV> 03/17/25 1029 us Christy Love PLUSH WEAVER-SPECIAL EDUCATION PARA PROFESSIONAL CV VASCULAR PROCEDURES Fi nal Result * Echocardiogram (06/25/2023 12:47 PM EDT) 06/25/2023 12:4 7 PM EDT Narrative SYNGO - 06/25/2023 2:13 PM EDT [address], [address], [place] [address] TRANSTHORACIC ECHOCARDIOGRAM REPORT Patient Name: KENNEDY AMOS Reading Physician: [id number] Hannah Abraham MD Study Date: 06/25/2023 Referring GEORGE JACOBS Physician: MRN/PID: [id number] PCP: Nestor Art Accession/Order#: [id number] Department [facility] Location: Date of : 1935 Fellow: Gender: M Nurse: Admit Date: Database Designer: Flores Love RD, T Height: 177.80 cm CC Report to: Weight: 83.92 kg Study Type: Echocardiogram BSA: 2.02 m2 Blood Pressure: 110 /64 mmHg Diagnosis/ICD: I25.10-Atherosclerotic heart disease of [place] coronary artery without angina pectoris; I51.9-Heart disease, unspecified; 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) Indication: Hyperlipidemia, AR and PTCA-04/22/2023 Procedure/CPT: Echo Complete w Full Doppler-03020 Study Detail: The following Echo studies were [...] mmHg PIEDV: 1.64 m/s PADP: 13.8 mmHg [id number] Hannah Abraham MD Electronically signed on 06/25/2023 at 2:13:32 PM Final Procedure Note Hannah Abraham MD - 06/25/[address], [address] [place] [address] TRANSTHORACIC ECHOCARDIOGRAM REPORT Patient Name: ALKAEDUARDO Saenz Physician: [id number] Leonard MD Study Date: 06/25/2023 Referring GEORGE JACOBS Physician: MRN/PID: [id number] PCP: Nestor Art Accession/Order#: [id number] [facility] Location: Date of : 1935 Fellow: Gender: M Nurse: Admit Date: Database Designer: Flores Love RDCS,RVT Height: 177.80 cm CC Report to: Weight: 83.92 kg Study Type: Echocardiogram BSA: 2.02 m2 Blood Pressure: 110 /64 mmHg Diagnosis/ICD: I25.10-Atherosclerotic heart disease of [place] coronaryartery without angina pectoris; I51.9-Heart disease, unspecified; 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) Indication: Hyperlipidemia, AR and PTCA-04/22/2023 Procedure/CPT: Echo Complete w Full Doppler-00610 Study Detail: The following Echo studies were performed: 2D, M-Mode,Doppler and color flow. PHYSICIAN INTERPRETATION: Left Ventricle: Left ventricular systolic function is normal, with anestimated ejection fraction of 60-65%. There are no regional wall motionabnormalities. The left ventricular cavity size is normal. SpectralDoppler shows an impaired relaxation pattern of left ventricular diastolicfilling. Left Atrium: The left atrium is mildly dilated. Mildly dilated leftatrium. Right Ventricle: The right ventricle is normal in size. There is normalright ventricular global systolic function. Right Atrium: The right atrium is normal in size. Aortic Valve: The aortic valve appears structurally normal. There isminimal aortic valve cusp calcification. There is trivial aortic valveregurgitation. The peak instantaneous gradient of the aortic valve is 11.0mmHg. The mean gradient of the aortic valve is 5.0 mmHg. Mitral Valve: The mitral valve is mildly thickened. There is mild mitralvalve regurgitation. Tricuspid Valve: The tricuspid valve is structurally normal. There istrace tricuspid regurgitation. The Doppler estimated RVSP is within normallimits at 16.4 mmHg. Pulmonic Valve: The pulmonic valve is structurally normal. There is noindication of pulmonic valve regurgitation. Pericardium: There is no pericardial effusion noted. Aorta: The aortic root is normal. CONCLUSIONS: 1. Left ventricular systolic function is normal with a 60-65% estimatedejection fraction. 2. Spectral Doppler shows an impaired relaxation pattern of leftventricular diastolic filling. 3. Mildly dilated left atrium. [...] mmHg PIEDV: 1.64 m/s PADP: 13.8 mmHg [id number] Hannah Abraham MD Electronically signed on 06/25/2023 at 2:13:32 PM Final George Jacobs DO CV ECHO PROCEDURES Final Re risa SYNGO from Last 3 Months or Most Recently Relevant to Health Maintenance Insurance MEDICARE PART A AND B [employer] SENIOR SUPPLEMENT MEDICARE PART A AND B [employer] SENIOR SUPPLEMENT Care Teams Shotgun Shell Assembly Machine Operator Relationship Specialty Start Date End Date Nestor [place] [address] PCP - General Internal Medicine 03/16/25
--- OUTSIDE RECORDS SUMMARY | 2025-06-03 12:34 | XMS_ITS | Encounter Summary ---
Author Organization [facility] Address [address] [place] [address] Phone Care Team Providers Care Inspection And Testing Supervisor Name Role Phone Nestor Art DO Primary Care Provider [phone] Encounter Details Date Type Department Care Team (Late st Contact Info) Description 03/16/2025 Scanned Document [facility] [address] [place] [id number] Scanning, Generic Provider Social History Tobacco Use [...] Description 10/27/2025 11:00 AM EST Office Visit [facility] [address] [facility] [address] [place] [address] Adriel Morgan DO [address] [place] [address] Scheduled Orders Name Type Priority Associated Diagnoses Orde r Schedule Ultrasound- OnBase Scan Imaging O rdered: 03/16/2025 documented as of this encounter Visit Diagnoses Not on filedocumented in this encounter Additional Health Concerns Assessment Noted Time A fall risk assessment has been complete d for the patient 03/16/2025 1:33 PM EDT documented as of this encounter Care Teams Inspection And Testing Supervisor Relationship Specialty Start Date End Date Nestor Art DO [address] [place] [address] PCP - General Internal Medicine 03/16/25 documented as of this encounter
--- OUTSIDE RECORDS SUMMARY | 2025-06-03 12:34 | XMS_ITS | Encounter Summary ---
Author Organization [facility] Address [facility] [place] [address] Care Team Providers Care Sales Team Member Name Role Phone Nestor Art DO Primary Care Provider [phone] Darryl Zacarias MD Unavailable [phone] Suzanne Rodriguez MD Unavailable [phone] Ashlyn Sibley APRN.FLYER MAKER Unavailable [phone] Sherron Coughlin RN Unavailable [phone] Jana Pierre Unavailable Unavailable Source Comments In the event this information is protected by the Federal Confidentiality of Alcohol and Drug AbusePatient Records regulations: The Federal rules restrict any use of the information to criminally investigate or prosecute any alcohol or drug abuse patient.[facility] Encounter Details Date Type Department Care Team (Late st Contact Info) Description 10/01/2024 Patient Msg Hematology/Oncology [address] [place] [address] Darryl Zacarias MD [address] [place] [address] Appointment Cancellation Request Social History Tobacco Use Types Packs/Day Years Used Date Smoking Tobacco: Never Smokeless Tobacco: Never Alcohol Use Standard Drinks/Week Comments Yes 0 (1 standard drink = 0.6 oz pur e alcohol) beer rarely PHQ-2 Answer Date Recorded PHQ-2 score 0 07/01/2024 Area Deprivation Index Answer Date Terrell rded National Score (1-100), lowe r number is lower risk 60 12/31/2023 State Score (1-10), lower nu mber is lower risk 4 12/31/2023 Data from: https://www.neighborhoodatlas.medicine.[facility].e du/. Last address used for calculation [address] 12/31/2023 Sex and Gender Information Value Date Recorded Sex Assigned at Not on file Legal Sex Male 10:14 AM EST Gender Identity Not on file Sexual Orientation Not on file documented as of this encounter Plan of Treatment Upcoming Encounters Date Type Department Care Team (Latest Contact Info) Description 11/22/2025 9:45 AM EST Appointment Radiology [address] [place] [address] Ct CAP with contrast and lab 11/29/2025 10:00 AM EST Visit (SP) Office Hematology/Oncology [facility] [place] [address] Darryl Zacarias MD [facility] [place] [address] and lab results documented as of this encounter Visit Diagnoses Not on filedocumented in this encounter Care Teams Sales Team Member Relationship Specialty Start Date End Date Nestor Art DO PCP - General Internal Medicine 01/16/12 Darryl Zacarias MD [facility] [place] [address] Physician Hematology/Oncology 01/13/24 Suzanne Rodriguez MD [facility] [place] [address] Physician Radiation Oncology 01/13/24 Ashlyn Sibley APRN.FLYER MAKER [address] [place] [address] Nurse Practitioner Hematology/Oncology 01/13/24 Sherron Coughlin, JUSTIN [address] [place] [address] [place] [address] Specialty Effervescent Salts Compounder Hematology/Oncology 01/13/24 04/01/25 Jana Pierre LSW Carpet Binder 02/03/24 documented as of this encounter
--- OUTSIDE RECORDS SUMMARY | 2025-06-03 12:34 | XMS_ITS | Clinical Summary ---
Author Organization [employer] Address [id number] [address] [place] [address] Care Team Providers Care Cataloging Assistant Name Role Phone Nestor Art DO Primary Care Provider [phone] Allergies No known active allergies Medications acetaminophen 500 mg capsule acetaminophen 500 mg Active fish oil-dha-epa 1,200-144-216 mg capsule Take by mouth daily. 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 Never 03/31/2020 Average Number of Drinks Not on file 020 Frequency of Binge Drinking Not on file 03/21 Childcare Answer Date Recorded Childcare Unknown 04/01/2019 Employment Answer Date Recorded Employment Unknown 04/01/2019 Purpose - Life Answer Date Recorded Purpose and direction in life Unknown Sex and Gender Information Value Date Recorded Sex Assigned at Not on file Legal Sex Male 11:44 AM EDT Gender Identity Not on file Sexual Orientation Not on file Last Filed Vital Signs Vital Sign Reading Time Taken Comments Blood Pressure 98/60 05/13/2020 9:47 AM EDT Pulse 61 05/13/2020 9:47 AM EDT Temperature 36.4 C (97.6 F) 05/13/2020 9:15 AM EDT Respiratory Rate 20 05/13/2020 9:47 AM EDT Oxygen Saturation 100% 05/13/2020 9:47 AM EDT Inhaled Oxygen Concentration - - Weight 83 kg (183 lb) 11/28/2021 10:14 AM EST Height 177.8 cm (5' 10 ) 11/28/2021 10:14 AM EST Body Mass Index 26.26 11/28/2021 10:14 AM EST Plan of Treatment Health Maintenance Due Date Last Done Comments Depression Screening 1947 Tobacco Screening 1947 DTaP,Tdap and Td Vaccines (1 - Tdap) 1955 Fall Risk Screening 2001 COVID-19 Vaccine (2023-2 5 season) 2024 06/09/2021, 12/02/2020, 11/10/2020 Influenza Vaccine 06/21/2025 07/27/2021, , 07/15/2018 Zoster (Shingles) Vaccine Completed 2020, 04/14/2021, 10/29/2013 Medical Devices Not on file Insurance MEDICARE [place] [address] Care Teams Cataloging Assistant Relationship Specialty Start Date End Date Nestor Art DO PCP - General Internal Medicine 04/04/20
--- OUTSIDE RECORDS SUMMARY | 2025-06-03 12:42 | XMS_ITS | CCD ---
Author Organization [facility] Care Team Providers Care Information Management Manager Name Role Phone GEORGE RIOS Unavailable Unavailable LESA ESTRELLA Unavailable Unavailable GEORGE RIOS Unavailable Unavailable LESA ESTRELLA Unavailable LESA Vela Primary Care Physician JIMMY ESTRELLA Primary Care Unavailable ALZAEDAVID REECE Referring Unavailable LUKE LAN Attending Unavailable HANG OHARA Referring Unavailable SAMEER JIMMY Primary Care Unavailable SAHIL CAMACHO Admitting Unavailable CONSULT, SURGERY - GENERAL (EMERGENT) Consulting Unavailable Reid Ann Unavailable Lesa Estrella Unavailable Lesa Estrella DO Primary Care Provider SAMEER, DR BAEZ Consulting Unavailable BALL, DR BAEZ Attending Unavailable BALL, DR BAEZ Admitting Unavailable BALL, DR BAEZ Primary Care Unavailable BALL, DR BAEZ Consulting Unavailable BALL, DR BAEZ Primary Care Unavailable BALL, DR BAEZ Attending Unavailable BALL, DR BAEZ Admitting Unavailable WEST, DR AUBREY Barclay Consulting Unavailable DIETRICH ., DR ESPINAL Attending Unavailable REQUEST, DR LUU LISTED Primary Care Unavaila ble DIETRICH ., DR ESPINAL Consulting Unavailable DIETRICH ., DR ESPINAL Admitting Unavailable BALL, DR BAEZ Consulting Unavailable BALL, DR BAEZ Attending Unavailable BALL, DR BAZE Admitting Unavailable BALL, DR BAEZ Primary Care Unavailable LEV, DR HANG Palacios Attending Unavailabl e REINECK, DR HANG Palacios Admitting Unavailabl e REQUEST, NONE LISTED Primary Care Unavaila ble REINECK, DR HANG Palacios Consulting Unavailabl e KNROMAN, ANKIT Consulting Unavailable MANAV PARK Consulting Unavailable WILY ., DR ESPINAL Attending Unavailable REQUEST, DR [...] Ball, DO Baez Primary Care Provider MD Kiik Motta Admit Provider MD Kiki Motta Attending Provider [phone] MD Grace West Other Provider MD Raheem Giles Other Provider MD Kimberly Skinner Other Provider MD George Lay Other Provider JUSTIN Gould Other Provider Unavailable MD ePyton Norman Other Provider Lorna [facility] Misty Jeremi Other Provider MD Endy Arevalo Other Provider MD Lucio Dillon Other Provider DO Ko Morgan Other Provider MIGUEL White Other Provider MD Hannah Abraham Other Provider Lesa Estrella Unavailable Unavailable Unavailable Eddie, Dr. George Pierre Attending Raegan Estrella, Dr. Lesa Lovelace Primary Care Marcella Estrella, Dr. Lesa Lovelace Primary Care Marcella Morgan, Dr. George Pierre Referring Raegan Morgan, Dr. George Pierre Attending Raegan Estrella, Dr. Lesa Lovelace Primary [facility] Marcella Morgan, Dr. George Pierre Attending Raegan Estrella, Dr. Lesa Lovelace Primary [facility] Zofia Lam Unavailable Cindy Estrella MDore Primary Care Provider DO Lesa Estrella Primary Care Provider MD Zofia Gates Attending Provider Lesa Estrella DO Primary Care Provider Deann CHOI, Eugene Unavailable Suzanne Grajeda MD Unavailable [phone] Toñito [employer].RECORDS MANAGEMENT CLERK, Ashlyn Unavailable Ced RN, Sherron Unavailable [phone] Ignacio GRIGGS, Jana Unavailable Unavailable Lesa Estrella DO Primary Care Provider Suzanne Grajeda MD Leigh Unavailable [phone] Kylie DIETRICH Attending Unavailable DIETRICH, Kylie R Attending Unavailable DIETRICH, Kylie R Admitting Unavailable DIETRICH, Kylie R Attending Unavailable DIETRICH, Kylie R Attending Unavailable Wily CHOI, Kylie Attending Provider Kylie Dietrich MD Attending Provider Sameer DO Lesa E Primary Care Provider Sameer DOLesa Primary Care Provider Theodora Love APRN Attending Provider Sameer Lesa Primary Care Unavailable Asaad, Imad Attending Unavailable Asaad, Imad Admitting Unavailable Dietrich, Kylie Admitting Unavailable Dietrich, Kylie Attending Unavailable Ball, Lesa Primary Care Unavailable Love, Theodora K Attending Unavailable Love, Theodora Cortez Admitting Unavailable DIETRICH, Kylie R Attending Unavailable DIETRICH, Kylie R Attending Unavailable FANNY BARRAGAN Attending Unavailab le WILY, Kylie Restrepo Attending Unavailable Galmerlene, Niki Em Attending Unavailable FANNY BARRAGAN Attending Unavailab le WILY, Kylie Restrepo Attending Unavailable DIETRICH, Kylie R Attending Unavailable EDDIE, GEORGE S Attending Unavailable BALL, LESA E Primary Care Unavailable EDDIE, GEORGE S Referring Unavailable LOVE, THEODORA K Attending Unavailable EDDIE, GEORGE S Referring Unavailable BALL, LESA E Primary Care Unavailable TRAV, THEODORA K Attending Unavailable LOVE, THEODORA K Referring Unavailable BALL, LESA E Primary Care Unavailable BALL, LESA E Primary Care Unavailable ABHYANKAR, EUGENE Referring Unavailable ABHYANKAR, EUGENE Attending Unavailable BALL, LESA E Primary Care Unavailable ABHYANKAR, EUGENE Referring Unavailable BALL, LESA E Primary Care Unavailable ABHYANKAR, EUGENE Referring Unavailable BALL, LESA E Primary Care Unavailable ABHYANKAR, EUGENE Referring Unavailable ABHYANKAR, EUGENE Attending Unavailable ABHYANKAR, EUGENE Referring Unavailable BALL, LESA E Primary Care Unavailable ENGELER G LEIGH Attending Unavailable BALL, LESA E Primary Care Unavailable BALL, LESA E Primary Care Unavailable ABHYANKAR, EUGENE Referring Unavailable BALL, LSEA E Primary Care Unavailable ENGELER, G LEIGH Attending Unavailable BALL, LESA E Primary Care Unavailable ABHYANKAR, EUGENE Attending Unavailable BALL, LESA E Primary Care Unavailable BALL, LESA E Primary Care Unavailable BALL, LESA E Primary Care Unavailable ENGELER, G LEIGH Attending Unavailable ENGELER G LEIGH Referring Unavailable BALL, LESA E Primary Care Unavailable ABHYANKAR, EUGENE Attending Unavailable EUGENE CHAPARRO Referring Unavailable Allergies Allergy Classification Reported Allergen(s) Allergy Type Date of Onset Reaction(s) Facility Penicillins (antibiotic) (1 source) Amoxicillin Drug Allergy 04-28-2013 Other: See Comments [facility] (20 sources) Amoxicillin; Translations: [amoxicillin] Drug Allergy 04-28-2013 Other: See Comments [facility] Medications Current Medications Medication Drug Class(es) Dates Sig (Normalized) Sig (Original) acetaminophen 325 mg oral tablet (8 sources) Start: 08-18-2024 take 1 tablet by mouth every six hours as needed for pain Acetaminophen (Tylenol) 325 mg tablet Active 325 MG PO Every 6 hours as needed for pain August 18, 2024 12:00am Start: 10-10-2023 End: 10-10-2023 take 1 tablet by mouth every four hours as needed Acetaminophen (TYLENOL) tablet 650 mg take 1 tablet by dianne th every eight hours as needed acetaminophen (Tylenol 8 HOUR) 650 mg ER tablet Take 1 tablet (650 mg) by mouth every 8 hours if needed for mild pain (1 - 3). Do not crush, chew, or split. Active aspirin 81 mg chewable tablet (20 sources) Platelet Aggregation Inhibitor, Nonsteroidal Anti-inflammatory Drug Start: 11-20-2023 End: 11-19-2024 CARROLL CHEWABLE ASPIRIN 81 mg chewable tablet CHEW 1 TABLET ONCE DAILY 11/20/2023 Active Start: 10-10-2023 End: 10-10-2023 aspirin chewable tablet 81 m g Start: 05-07-2023 take 1 tablet by mouth once da marci Aspirin 81 81 MG 1 tablet Orally Once a day Apr, Active Start: 04-22-2023 take 1 tablet by mouth once da marci Aspirin 81 mg Tablet,Delayed Release (Dr/Ec) Active 81 MG PO Daily 90 90 April 22, 2023 12:00am take 1 tablet by dianne th every twenty-four hours Aspirin 325 MG 1 tablet Orally Once a day Not-Taking/PRN Comment on above: CHEW 1 TABLET ONCE D AILY azithromycin 250 mg oral tablet (3 sources) Macrolide Antimicrobial Start: 01-09-20 Azithromycin 250 mg tablet Active 250 MG PO .COMPLEX 6 5 January 08, 2025 12:00am 2 tabs on first day followed by 1 tab on days 2-5 beta prostate (14 sources) Start: 09-01-20 beta prostate beta prostate Start Date: 09/01/21 Status: Ordered calcium carbonate 1500 mg oral tablet (4 sources) Start: 12-05-19 take 1 tablet by mouth twice daily calcium (as carbonate) 600 mg oral tablet 600 mg = 1 tab(s), Oral, BID, Prophylaxis Start Date: 12/05/23 Status: Ordered [facility] misc (20 sources) Start: 02-12-20 [facility] misc Indications: Other urinary incontinence 1 Device once daily. 35 Each 02/12/2024 Active Start: 02-12-2024 [facility] misc Indications: Other urinary incontinence 1 Device once daily. 35 Each 0 02/12/2024 Active Start: 02-12-2024 End: 03-13-[address] ([facility] MALE E XTERNAL CATH) misc Indications: Other urinary incontinence 1 Device once daily. 35 Each 0 02/12/2024 03/13/2024 Active cefdinir 300 mg oral capsule (10 sources) Cephalosporin Antibacterial Start: 06-14-2020 cefdinir 300 mg Cap See Instructions, Refills(s) 0 Start Date: 06/14/20 Status: Ordered cephalexin 500 mg oral capsule (16 sources) Cephalosporin Antibacterial Start: 12-16-2023 End: 03-11-2024 take 1 capsule by mouth every twelve hours cephalexin 500 mg Cap 500 mg = 1 cap(s), Oral, q12hr, X 7 day(s), # 14 cap(s), Refills(s) 0, Pharmacy: [facility]/pharmacy #[id number], 179, cm, 12/16/23 9:50:00 EST, Height/Length Dosing, 80, kg, 12/16/23 9:50:00 EST, Weight Dosing Start Date: 03/04/24 Stop Date: 03/11/24 Status: Ordered Start: 08-19-2021 End: 04-22-2023 take 1 capsule by mouth twice daily Cephalexin 500 mg capsule Discontinued 500 MG PO Twice daily 09 08August 19, 2021 12:00am April 22, 2023 11:06am clopidogrel 75 mg oral tablet (20 sources) P2Y12 Platelet Inhibitor Start: 11-16-2023 End: 05-20-2024 take 1 tablet by mouth once daily clopidogrel (PLAVIX) 75 mg tablet Take 75 mg by mouth once daily. 11/16/2023 Active Start: 11-16-2023 clopidogrel (P LAVIX) 75 mg [...] daily Quantity: 98 Refills: 3 Ordered: 23-May-2023 George Morgan DO Start : 23-May-2023 Active new start, replaces Brilinta Comment on above: TAKE 8 TABLETS BY MOUTH FOR 1 DOSE ONLY, THEN TAKE 1 TABLET BY MOUTH DAILY*REPLACES BRILINTA* Take 75 mg by mouth once daily. docusate sodium 100 mg oral capsule (20 sources) Start: 01-01-20 End: 02-21-20 take 1 capsule by mouth once daily as needed for constipation Docusate Sodium 100 mg capsule Active 100 MG PO Daily as needed for constipation January 01, 2024 12:00am take 1 tablet [...] Externally daily for 30 days Aug, Active enteric contrast (will be provided with radiology test) (20 sources) Start: 5 enteric contrast (will be provided with radiology test) Indications: Malignant neoplasm of overlapping sites of bladder (HCC) For CT CHESTABD/PEL W IVCON Routine order Administer, As Directed One Time Only, via Oral, Rectal, both Oral and Rectal, Enteric Tube, Stoma or Indwelling Catheter, Enteric Contrast as designated per enteric contrast guidelines 1 each 05/19/2025 Active Start: 01-29-[address] (will be provided with radiology test) Indications: Malignant neoplasm of urinary bladder, unspecified site (HCC) , Lung nodules , Stage 3a chronic kidney disease (HCC) , Anemia, unspecified type , Malignant neoplasm of overlapping sites of bladder (HCC) For CT CHESTABD/PEL W IVCON Routine order Administer, As Directed One Time Only, via Oral, Rectal, both Oral and Rectal, Enteric Tube, Stoma or Indwelling Catheter, Enteric Contrast as designated per enteric contrast guidelines 1 each 01/29/2025 Active Start: 10-28-[address] (will be provided with radiology test) Indications: Malignant neoplasm of urinary bladder, unspecified site (HCC) For CT CHESTABD/PEL W IVCON Routine order Administer, As Directed One Time Only, via Oral, Rectal, both Oral and Rectal, Enteric Tube, Stoma or Indwelling Catheter, Enteric Contrast as designated per enteric contrast guidelines 1 Each 10/28/2024 Active Start: 07-01-[address] (will be provided with radiology test) For CT CHESTABD/PEL W IVCON Routine order Administer, As Directed One Time Only, via Oral, Rectal, both Oral and Rectal, Enteric Tube, Stoma or Indwelling Catheter, Enteric Contrast as designated per enteric contrast guidelines 1 Each 07/01/2024 Active Fish Oil-DHA-EPA 1,200-144-2 16 mg cap (20 sources) Fish Oil-DHA-EPA 1,200-144-216 mg cap Take by mouth once daily. Active Fish Oil-DHA-EPA 1,200-144-216 mg cap Take by mouth once daily. 0 Active Comment on above: Take by mouth once d aily. furosemide 20 mg oral tablet (6 sources) Loop Diuretic Start: 03-16-2025 End: 04-07-2026 take 1 tablet by mouth every twenty-four hours as needed furosemide (LASIX) 20 mg tablet Take 20 mg by mouth at bedtime as needed. 04/07/2025 04/07/2026 Active Start: 02-19-2024 End: 02-19-2024 furosemide 10 mg injection ( LASIX) Start: 02-12-2024 End: 02-12-2024 furosemide 10 mg injection ( LASIX) iv contrast (will be provide d with radiology test) (20 sources) Start: 05-19-2025 iv contrast (w ill be provided with radiology test) Indications: Malignant neoplasm of overlapping sites of bladder [...] CT contrast administration guidelines link. 1 each 05/19/2025 Active Start: 01-29-2025 iv contrast (w ill be provided with radiology test) Indications: Malignant neoplasm of urinary bladder, unspecified site (HCC) , Lung nodules , Stage 3a chronic kidney disease (HCC) , Anemia, unspecified type , Malignant neoplasm of overlapping sites of bladder [...] CT contrast administration guidelines link. 1 each 01/29/2025 Active Start: 10-28-2024 iv contrast (w ill be provided with radiology test) Indications: Malignant neoplasm of urinary bladder, unspecified site [...] CT contrast administration guidelines link. 1 Each 10/28/2024 Active Start: 07-01-2024 iv contrast (w ill be provided with radiology test) CT Chest [...] CT contrast administration guidelines link. 1 Each 07/01/2024 Active loratadine 10 mg oral tablet (4 sources) Start: 03-05-2025 loratadine (CLARITIN) 10 mg tablet Take 10 mg by mouth. 03/05/2025 Active losartan potassium 25 mg oral tablet (20 sources) Angiotensin 2 Receptor Myra Start: 06-26-2024 take 1 tablet by mouth once daily Losartan Active 0 .ROUTE .COMPLEX June 26, 2024 8:50am TAKE 1 TABLET BY MOUTH EVERY DAY Start: 04-20-2024 take 1 tablet by dianne th once daily losartan 25 mg Tab TAKE 1 TABLET BY MOUTH EVERY DAY Start Date: 04/20/24 Status: Ordered Repeat number: 1 Start: 03-30-2024 End: 06-26-2024 take 1 tablet by mouth once daily Losartan 25 mg tablet Active 0 .ROUTE .COMPLEX June 26, 2024 8:50am TAKE 1 TABLET BY MOUTH EVERY DAY Start: 03-30-2024 End: 03-30-2024 take 1 tablet by mouth once daily Losartan 25 mg tablet Discontinued 25 MG PO Daily March 30, 2024 12:00am March 30, 2024 5:42pm Start: 04-22-2023 End: 01-01-2024 take 1 tablet by mouth at bedtime Losartan 25 mg tablet Discontinued 25 MG PO Bedtime April 22, 2023 12:00am January 01, 2024 1:52pm End: 12-31-2023 losartan potassium (LOSARTAN ORAL) Take by mouth once daily. 0 12/31/2023 Discontinued (Dosage adjustment) losartan potassi um (LOSARTAN ORAL) Take by mouth once daily. 0 Active Comment on above: Take by mouth once d aily. lubiprostone 0.024 mg oral capsule (15 sources) Chloride Channel Activator Start: take 1 capsule by mouth twice daily lubiprostone 24 mcg Cap TAKE 1 CAPSULE BY MOUTH TWICE A DAY FOR 7 DAYS Start Date: 04/20/24 Status: Ordered Repeat number: 1 Start: 03-19-2024 End: 07-21-2024 take 1 capsule by mouth twice daily Lubiprostone (Amitiza) 24 mcg capsule Discontinued 24 MCG PO Twice daily 14 March 18, 2024 11:00pm July 21, 2024 1:05pm Start: 03-19-2024 End: 07-21-2024 take 1 capsule by mouth twice daily Lubiprostone (Amitiza) 24 mcg capsule Discontinued 24 MCG PO Twice daily 14 March 19, 2024 12:00am July 21, 2024 2:05pm Start: 03-19-2024 take 1 capsule by mo [facility] twice daily Lubiprostone (Amitiza) 24 mcg capsule Active 24 MCG PO Twice daily 14 March 19, 2024 12:00am 24 hr mirabegron 50 mg extended release oral tablet (6 sources) beta3-Adrenergic Agonist Start: 04-20-2024 take 1 tablet by mouth once daily Myrbetriq 50 mg oral tablet, extended release 50 mg = 1 tab(s), Oral, Daily, # 30 tab(s), Refills(s) 11, Pharmacy: [facility]/pharmacy #[id number], 179, cm, 04/20/24 13:46:00 EDT, Height/Length Dosing, 83.7, kg, 04/20/24 13:46:00 EDT, Weight Dosing Start Date: 04/20/24 Status: Ordered nitrofurantoin, macrocrystals 25 mg / nitrofurantoin, monohydrate 75 mg oral capsule (5 sources) Nitrofuran Antibacterial Start: 02-23-2024 End: 03-01-2024 take 1 capsule by mouth twice daily nitrofurantoin monohydrate and macrocrystal (MACROBID) 100 mg capsule Take 1 capsule by mouth two times a day for 7 days. 14 capsule 0 02/23/2024 03/01/2024 Active ondansetron 8 mg oral tablet (20 sources) Serotonin-3 Receptor Antagonist Start: 04-20-2024 ondansetron 8 mg Tab Refills(s) 0 Start Date: 04/20/24 Status: Ordered Repeat number: 1 Start: 01-13-2024 End: 03-25-2024 take 1 tablet by mouth every eight hours as needed ondansetron (ZOFRAN) 8 mg tablet Take 1 tablet by mouth every 8 hours as needed for nausea/vomiting. 90 tablet 1 01/13/2024 03/25/2024 Discontinued (Discontinued by Patient) Start: 08-19-2021 End: 04-22-2023 take 1 tablet by mouth every eight hours as needed for nausea and vomiting Ondansetron 4 mg tablet,disintegrating Discontinued 4 MG PO Q8H as needed for nausea and vomiting 9 3 August 19, 2021 12:00am April 22, 2023 11:06am Comment on above: Take 1 tablet by dianne th every 8 hours as needed for nausea/vomiting. polyethylene glycol 3350 39050 mg powder for oral solution (5 sources) Osmotic Laxative Start: 07-21-20 Polyethylene Glycol 3350 (Miralax) 17 gram/dose powder Active 17 GM PO Daily 238 1 July 21, 2024 12:00am use 238 grams for colonoscopy prep. potassium 75 mg oral tablet (5 sources) Start: 08-18-20 Potassium 75 mg tablet Active MG PO August 18, 2024 12:00am rosuvastatin calcium 40 mg oral tablet (20 sources) HMG-CoA Reductase Inhibitor Start: 07-16-20 End: 07-20-20 take 1 tablet by mouth once daily Rosuvastatin 40 mg tablet Active 0 .ROUTE .COMPLEX 90 July 20, 2024 12:36pm TAKE 1 TABLET BY MOUTH EVERY DAY Start: 10-10-2023 End: 10-10-2023 Rosuvastatin (CRESTOR) table t 40 mg Start: 06-07-2023 End: 07-16-2024 take 1 tablet by mouth once daily rosuvastatin (CRESTOR) 40 mg tablet Take 40 mg by mouth once daily. 12/30/2023 Active Comment on above: Take 40 mg by mouth once daily. sildenafil 50 mg oral tablet (2 sources) Phosphodiesterase 5 Inhibitor Start: 04-07-2025 sildenafil (VIAGRA) 50 mg tablet TAKE 1-2 TABLETS BY MOUTH 1 HR BEFORE SEXUAL ACTIVITY. DO NOT EXCEED 2 TABS/24 HRS. 04/07/2025 Active super beta prostate (4 sources) Start: 07-16-2024 super beta prostate super beta prostate, See Instructions Start Date: 07/16/24 Status: Ordered Repeat number: 1 Start: 07-16-2024 super beta pro state super beta prostate, See Instructions Start Date: 07/16/24 Status: Ordered tamsulosin hydrochloride 0.4 mg oral capsule (20 sources) alpha-Adrenergic Myra Start: 03-19-2025 take 2 capsules by mouth once daily tamsulosin 0.4 mg Cap 0.8 mg = 2 cap(s), Oral, Daily, Refills(s) 0 Start Date: 03/19/25 Status: Ordered Repeat number: 1 Start: 09-08-2024 take 1 capsule by mo ut twice daily Tamsulosin 0.4 mg capsule Active 0.4 MG PO Twice daily 180 90 September 08, 2024 1:55pm Start: 01-25-2024 End: 09-08-2024 take 1 capsule by mouth once daily in the evening Tamsulosin 0.4 mg capsule Discontinued 0 .ROUTE .COMPLEX January 25, 2024 12:05pm September 08, 2024 1:55pm TAKE 1 CAPSULE BY MOUTH EVERY DAY IN THE EVENING FOR 30 DAYS Start: 11-18-2020 End: 01-25-2024 take 0.4 mg by mouth once daily tamsulosin (FLOMAX) 0. 4 mg Take 0.4 mg by mouth once daily. 11/18/2020 Active Comment on above: Take 0.4 mg by mouth . Take 0.4 mg by mouth once daily. triamcinolone acetonide 1 mg/ml topical cream (20 sources) Corticosteroid Start: 01-08-2025 End: 01-08-2025 Triamcinolone Acetonide 0.1 % cream Active 1 APPLIC TOPICAL Daily 80 January 08, 2025 9:31am Start: 06-07-2023 Triamcinolone Acetonide 0.1 % 1 [...] times daily for 30 days Nov, Active vibegron 75 MG Oral Tablet [Gemtesa] (3 sources) Start: 03-19-2025 take 1 tablet by mouth once daily Gemtesa 75 mg oral tablet 75 mg = 1 tab(s), Oral, Daily, # 90 tab(s), Refills(s) 3, Pharmacy: [facility], cm, 03/19/25 8:56:00 EDT, Height/Length Dosing, 86.9, kg, 03/19/25 8:56:00 EDT, Weight Dosing Start Date: 03/19/25 Status: Ordered Quantity: 90.0 Unit: tab(s) Repeat number: 4 Indications: Malignant neoplasm of bladder, unspecified; Urge incontinence; Benign prostatic hyperplasia with lower urinary tract symptoms; Start: 03-19-2025 End: 03-14-2026 take 1 tablet by mouth once daily Gemtesa 75 mg oral tablet 75 mg = 1 tab(s), Oral, Daily, X 30 day(s), # 30 tab(s), Refills(s) 11, Pharmacy: [facility]/pharmacy #[id number], 179, cm, 03/19/25 8:56:00 EDT, Height/Length Dosing, 86.9, kg, 03/19/25 8:56:00 EDT, Weight Dosing Start Date: 03/19/25 Stop Date: 03/14/26 Status: Ordered Quantity: 30.0 Unit: tab(s) Repeat number: 12 Completed/Discontinued Medications Medication Drug Class(es) Dates Sig [...] 30 mL atorvastatin 80 mg oral tablet (18 sources) HMG-CoA Reductase Inhibitor Start: 04-22-2023 End: 01-01-2024 take 1 tablet by mouth once daily in the evening Atorvastatin 80 mg Tablet Discontinued 80 MG PO Every evening April 22, 2023 12:00am January 01, 2024 1:52pm Calcium (20 sources) Phosphate Binder, Calcium Calcium 150 MG as directed Orally Not-Taking/PRN Calcium 150 MG a s directed Orally Not-Taking carvedilol 6.25 mg oral tablet (20 sources) alpha-Adrenergic Myra, beta-Adrenergic Myra Start: 01-01-2024 take 2 tablets by mouth twice daily at mealtime Carvedilol 6.25 mg tablet Active 12.5 MG PO Twice daily with meals January 01, 2024 1:51pm Start: 01-01-2024 take 12.5 mg by mout h twice daily at mealtime Carvedilol Active 12.5 [...] 30 days Apr, Active Start: 04-22-2023 End: 03-16-2025 take 1 tablet by mouth twice daily at mealtime carvedilol (COREG) 6.25 mg tablet Take 6.25 mg by mouth two times a day with meals. 10/28/2023 Active Comment on above: Take 6.25 mg by mout h two times a day with meals. cefTRIAXone (20 sources) Cephalosporin Antibacterial Start: 5 Rocephin 500 mg Oct, 1 grm ciprofloxacin 250 mg oral tablet (14 sources) Quinolone Antimicrobial Start: 5 take 1 tablet by mouth every three months Cipro 250 mg Tab 250 mg = 1 tab(s), Oral, Daily, Take 1 tablet the day before the procedure and 1 tablet after the procedure, every 3 months, # 8 tab(s), Refills(s) 0, Pharmacy: [facility]/pharmacy #[id number], 179, cm, 07/16/24 8:19:00 EDT, Height/Length Dosing, 83, kg, 07/16/24 8:19:00 EDT, Weight Dosing Start Date: 10/30/24 Status: Ordered Start: 06-25-2024 take 1 tablet by dianne th once daily Cipro 250 mg Tab 250 mg = 1 tab(s), Oral, Daily, Take 1 tablet the day before the procedure and 1 tablet after the procedure, # 2 tab(s), Refills(s) 0, Pharmacy: [facility]/pharmacy #[id number], 179, cm, 04/20/24 13:46:00 EDT, Height/Length Dosing, 83.7, kg, 04/20/24 13:46:00 EDT, Weight Dosing Start Date: 06/25/24 Status: Ordered Start: 02-21-2024 End: 02-28-2024 take 1 tablet [...] procedure, # 6 tab(s), Refills(s) 0, [id number], cm, 09/01/21 10:42:00 EST, Height/Length Dosing, 78, kg, 09/01/21 10:42:00 EST, W... Start Date: 12/07/22 Status: Ordered Start: 10-26-2022 take 1 tablet by dianne th once daily Cipro 250 mg Tab 250 mg = 1 tab(s), Oral, Daily, Take 1 tablet the day before the procedure and 1 tablet after the procedure, # 2 tab(s), Refills(s) 0, Pharmacy: [facility]/pharmacy #[id number], 178, cm, 09/01/21 10:42:00 EST, Height/Length Dosing, 78, kg, 09/01/21 10:42:00 EST, W... Start Date: 10/26/22 Status: Ordered Start: 03-01-2022 take 1 tablet by dianne th once daily Cipro 500 mg Tab 500 mg = 1 tab(s), Oral, Daily, Take 1 tablet the day before the procedure and 1 tablet after the procedure, # 2 tab(s), Refills(s) 0, [id number], cm, 09/01/21 10:42:00 EST, Height/Length Dosing, 78, kg, 09/01/21 10:42:00 EST, W... Start Date: 03/01/22 Status: Ordered Start: 12-07-2021 take 1 tablet by dianne once daily Cipro 500 mg Tab 500 mg = 1 tab(s), Oral, Daily, Take 1 tablet the day before procedure and 1 tablet after the procedure, # 2 tab(s), Refills(s) 0, Pharmacy: [facility] 1622, 178, cm, 09/01/21 10:42:00 EST, Height/Length Dosing, 78, kg, 09/01/21 10:42:00 EST, We... Start Date: 12/07/21 Status: Ordered CISplatin 40.6 mg in NaCl 0. 9% 1,090.6 mL (PLATINOL) (2 sources) Start: 02-19-2024 End: 02-19-2024 CISplatin 40.6 mg in NaCl 0. 9% 1,090.6 mL (PLATINOL) Start: 02-12-2024 End: 02-12-2024 [...] mg in NaCl 0.9% 250 mL (EMEND) ipratropium bromide 0.042 mg/actuat metered dose nasal spray (20 sources) Anticholinergic take 2 spray(s) nasal route three times daily as needed Ipratropium Merritt 0.06 % 2 sprays in each nostril Nasally Three times a day Not-Taking/PRN take 2 spray(s) nasa l route three times daily Ipratropium Merritt 0.06 % 2 sprays in e ach nostril Nasally Three times a day Not-Taking levoFLOXacin 500 mg oral tablet (17 sources) Quinolone Antimicrobial Start: 01-31-2024 End: 08-14-2024 take 1 tablet by mouth once daily Levofloxacin 500 mg tablet Discontinued 500 MG PO Daily 04 26January 31, 2024 12:00am August 14, 2024 8:29am Comment on above: Take 1 tablet by [...] 50 mL nitroglycerin 0.4 mg sublingual tablet (11 sources) Nitrate Vasodilator Start: 04-22-2023 End: 01-01-2024 Nitroglycerin 0.4 mg tablet, sublingual Discontinued 0.4 MG SUBLINGUAL Q5M as needed for chest pain April 22, 2023 12:00am January 01, 2024 [...] 02-12-2024 palonosetron 0.25 mg injecti on (ALOXI) Polyethylene Glycol 3350 (Miralax) 17 gram/dose powder (5 sources) Start: 07-21-2024 End: 08-14-2024 Polyethylene Glycol 3350 (Miralax) 17 gram/dose powder Discontinued 17 GM PO Daily 510 30 July 21, 2024 12:00am August 14, 2024 8:29am Start: 07-21-2024 End: 08-14-2024 Polyethylene Glycol 3350 (Mi ralax) 17 gram/dose powder Discontinued 17 GM PO Daily 510 July 20, 2024 11:00pm August 14, 2024 7:29am potassium chloride 20 meq extended release oral [...] on above: Take 1 tablet by dianne every 6 hours as needed. Psyllium (20 sources) Psyllium Not-Taking/PRN Psyllium Not-Bobby ing Psyllium Active rifAXIMin 550 mg oral tablet (2 sources) Rifamycin Antibacterial End: 03-31-2025 take 1 tablet by mouth three times daily rifAXIMin (Xifaxan) 550 mg tablet Take 1 tablet (550 mg) by mouth 3 times a day. 03/31/2025 Discontinued (Med List Cleanup) 1000 ml sodium chloride 9 mg/ml injection (4 sources) Start: 02-19-2024 End: 02-19-2024 NaCl 0.9% iv bolus 1,000 mL Start: 02-12-2024 End: 02-12-2024 NaCl 0.9% iv bolus 1,000 mL terbinafine 250 mg oral tablet (15 sources) Allylamine Antifungal Start: 04-12-2023 Terbinaf ine HCl 1 % 1 application Externally twice daily for 14 days Mar, Active Start: 04-12-2023 End: 01-01-2024 take 1 tablet by mouth at bedtime Terbinafine Hcl 250 mg tablet Discontinued 250 MG PO Bedtime April 22, 2023 12:00am January 01, 2024 1:53pm ticagrelor 90 mg oral tablet (20 sources) Start: 05-20-2023 take 1 tablet by mouth every twelve hours Brilinta (ticagrelor) 90 mg oral tablet 60 EA, TAKE 1 TABLET BY MOUTH EVERY 12 HOURS FOR 30 DAYS, Refills(s) 0 Start Date: 05/20/23 Status: Ordered Repeat number: 1 Start: 04-22-2023 End: 01-01-2024 take 1 tablet [...] Classification Problem Date Documented Date Episodic/Chronic Acute bronchitis (3 sources) Acute bronchitis due to Mycoplasma pneumoniae; Translations: [Acute bronchitis] 01-08-2025 Episodic Acute myocardial infarction (20 sources) Myocardial infarction; Translations: [Non-ST elevation (NSTEMI) myocardial infarction] Onset: 10-24-19 Resolved : 03-16-20 25 04-22-2023 Chronic Comment on above: Problem List clean-u p per request of Phys. EHR Cmte Allergic reactions (20 sources) Asteatotic eczema; Translations: [Other specified dermatitis] 01-08-2025 Episodic Cancer of bladder (20 sources) Malignant tumor of urinary bladder; Translations: [Malignant neoplasm of bladder, unspecified] Onset: 01-09-20 Resolved : 03-16-20 Chronic Comment on above: Dx: 2019, recurrent 2020, second recurrence hemotherapy/Radiation therapy - 2023 Cancer of bladder (20 sources) Personal history of malignant neoplasm of bladder; Translations: [H/O: malignant neoplasm] Onset: 11-12-19 Episodic Cancer of colon (20 sources) Malignant tumor of colon; Translations: [Malignant neoplasm of colon, unspecified site] Onset: 12-17-19 13 04-22-2023 Chronic Comment on above: Problem List clean-u p per request of Phys. EHR Cmte Cardiac dysrhythmias (20 sources) Bradycardia; Translations: [Bradycardia, unspecified] Episodic Chronic kidney disease (20 sources) Chronic kidney disease; Translations: [Chronic kidney disease, unspecified] Onset: 01-10-20 23 03-28-2020 Chronic Chronic kidney disease (1 source) Chronic kidney disease; Translations: [Stage 3a chronic kidney disease (HCC)] Onset: 10-29-19 Chronic ulcer of skin (20 sources) Pressure [...] [Coronary atherosclerosis of unspecified type of vessel, pamunkey or graft] Onset: 06-25-20 Resolved : 03-16-20 Chronic Comment on above: LHC, PCI/stent OM br anch of the LCx 04/2023 Deficiency and other anemia (20 sources) Chronic anemia; Translations: [Anemia in other chronic diseases classified elsewhere] Chronic Deficiency and other anemia (2 sources) Anemia in other chronic diseases classified elsewhere; Translations: [Anemia in other chronic diseases classified elsewhere] Chronic Deficiency and other anemia (20 sources) Anemia; Translations: [Anemia, unspecified] 07-01-2024 Episodic Deficiency and other anemia (8 sources) Anemia, unspecified; Translations: [ANEMIA UNSPECIFIED] Onset: [...] Translations: [Essential (primary) hypertension] Onset: 09-28-20 Chronic Comment on above: Problem List clean-u p per request of Phys. EHR Cmte Genitourinary symptoms and ill-defined conditions (20 sources) Urinary incontinence; Translations: [Unspecified urinary incontinence] Onset: 11-05-1903-28-2020 Chronic Genitourinary symptoms and ill-defined conditions (20 sources) Barrera hematuria; Translations: [Gross hematuria] Onset: 03-08-2003-28-2020 Episodic Hyperplasia of prostate (20 sources) Benign prostatic hypertrophy with outflow obstruction; Translations: [Nocturia due to benign prostatic hypertrophy] Onset: 01-10-20 23 09-26-2020 Chronic Immunizations and screening for infectious disease (1 source) Encounter for immunization; Translations: [ENCOUNTER FOR IMMUNIZATION] Onset: 01-23-20 Episodic Mycoses (2 sources) Tinea pedis Episodic Neoplasms of unspecified nature or uncertain behavior (20 sources) Neoplasm of bladder 04-27-2020 Episodic Open wounds of extremities (4 sources) Laceration without foreign body of right hand, initial encounter; Translations: [LACERATION W/O FB RT HAND INITIAL] Onset: 01-19-20 Episodic Osteoarthritis (20 sources) Osteoarthritis of right hip joint; Translations: [Unspecified osteoarthritis, unspecified site] Onset: 01-10-20 23 03-28-2020 Chronic Other aftercare (2 sources) Other meterman (current) drug therapy; Translations: [OTH HALFWAY CURRENT DRUG THERAPY] Onset: 01-23-20 Episodic Other aftercare (2 sources) Drug therapy finding; Translations: [Other mcfp (current) drug therapy] 02-19-2024 Episodic Other and ill-defined heart disease (4 sources) Left ventricular cardiac dysfunction; Translations: [Heart disease, unspecified] Chronic Other and ill-defined heart disease (1 source) Heart disease, unspecified; Translations: [Heart disease, unspecified] Onset: 06-25-20 Chronic Other and ill-defined heart disease (3 sources) Heart disease; Translations: [Heart disease, unspecified] Onset: [...] Episodic Other diseases of kidney and ureters (20 sources) Cyst of kidney 03-28-2020 Episodic Other diseases of veins and lymphatics (20 sources) Peripheral venous insufficiency; Translations: [Venous insufficiency (chronic) (peripheral)] 03-28-2020 Episodic Other diseases of veins and lymphatics (10 sources) Venous insufficiency (chronic) (peripheral); Translations: [Venous (peripheral) insufficiency, unspecified] Onset: 01-10-20 Episodic Other gastrointestinal disorders (6 sources) Irritable bowel syndrome with diarrhea; Translations: [Irritable bowel syndrome with diarrhea] 06-08-2024 Chronic Other gastrointestinal disorders (1 source) Irritable bowel syndrome with diarrhea; Translations: [Irritable bowel syndrome] 06-08-2024 Chronic Other gastrointestinal disorders (20 sources) H/O: ulcerative colitis 03-28-2020 Episodic Other gastrointestinal disorders (2 sources) Personal history of other diseases of the digestive system; Translations: [Personal history of other diseases of digestive system] Episodic Other gastrointestinal disorders (1 source) Irregular bowel habits; Translations: [Other specified symptoms and signs involving the digestive system and abdomen] Episodic Other gastrointestinal disorders (11 sources) Diarrhea; Translations: [Diarrhea, unspecified] 08-19-2021 Episodic Comment on above: Problem List clean-u p per request of Phys. EHR Cmte Other gastrointestinal disorders (1 source) Diarrhea, unspecified Episodic Other gastrointestinal disorders (2 sources) Change in bowel habit Episodic Other gastrointestinal disorders (4 sources) Constipation; Translations: [Constipation, unspecified] Episodic Other gastrointestinal disorders (1 source) Dark stools; Translations: [Other fecal abnormalities] 02-07-2024 Episodic Other gastrointestinal disorders (7 sources) Chronic constipation; Translations: [Other constipation] 03-19-2024 Episodic Other gastrointestinal disorders (7 sources) History of inflammatory bowel disease; Translations: [Personal history of other diseases of the digestive system] 03-19-2024 Episodic Other gastrointestinal disorders (5 sources) Other constipation; Translations: [Constipation, unspecified] 03-19-2024 Episodic Other gastrointestinal disorders (6 sources) 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; Translations: [Gastroenteritis and colitis due to radiation] 06-08-2024 Episodic Other gastrointestinal disorders (1 source) Gastroenteritis and colitis due to radiation; Translations: [Gastroenteritis and colitis due to radiation] 06-08-2024 Episodic Other lower respiratory disease (1 source) Pulmonary granuloma; Translations: [Pulmonary fibrosis, unspecified] 05-19-2025 Chronic Other lower respiratory disease (1 source) Pulmonary fibrosis, unspecified; Translations: [Lung granuloma (HCC)] Onset: 05-19-20 Chronic Other lower respiratory disease (9 sources) Multiple nodules of lung; Translations: [Other nonspecific abnormal finding of lung field] 10-28-2024 Episodic Other lower respiratory disease (6 sources) Nodule of lung; Translations: [Solitary pulmonary nodule] 10-28-2024 Episodic Comment on above: CT: 1.1cm, 0.6cm RML - ET/CT: not FDG avid nodules - 09/2024 CT: 1.1cm RUL, 0.6cm RML - 09/2024,PET/CT: not FDG avid nodules - 09/2024,CT: less conspicuous RUL nodule, subcentimeter nodules - 01/2025 Other lower respiratory disease (1 source) Solitary pulmonary nodule; Translations: [Pulmonary nodule, left] Onset: 05-19-20 Episodic Other lower respiratory disease (1 source) Other nonspecific abnormal finding of lung field; Translations: [Lung nodules] Onset: 05-14-20 Episodic Other male genital disorders (2 sources) Male erectile dysfunction, unspecified; Translations: [Erectile dysfunction] Onset: 04-02-20 Chronic Other male genital disorders (20 sources) Disorder [...] upper limb] Chronic Other nervous system disorders (20 sources) Trigeminal neuralgia 03-28-2020 Episodic Other non-traumatic joint disorders (20 sources) Hip pain 03-28-2020 Episodic Other nutritional; endocrine; and metabolic disorders (8 sources) Overweight in adulthood with body mass index of 25 or more but less than 30; Translations: [Overweight] Onset: 05-20-20 24 03-16-2025 Episodic Other nutritional; endocrine; and metabolic disorders (2 sources) Body mass index (BMI) 26.0-26.9, adult; Translations: [Body mass index (BMI) 26.0-26.9, adult] Onset: 03-31-20 Episodic Other nutritional; endocrine; and metabolic disorders (2 sources) Body mass index (BMI) 27.0-27.9, adult; Translations: [Body mass index (BMI) 27.0-27.9, adult] Onset: 03-16-20 Episodic Other upper respiratory disease (1 source) Allergic rhinitis, unspecified; Translations: [Allergic rhinitis, cause unspecified] 12-08-2024 Chronic Peripheral and visceral atherosclerosis (2 sources) Atherosclerosis of aorta; Translations: [Atherosclerosis of aorta] Onset: 05-19-20 25 05-19-2025 Chronic Poisoning by nonmedicinal substances (1 source) Toxic effect of unspecified spider venom, accidental (unintentional), initial encounter Episodic Regional enteritis and ulcerative colitis (1 source) Ulcerative colitis, unspecified, without complications; Translations: [ULCERATIVE COLITIS UNS W/O COMP] Onset: 06-13-20 Chronic Residual codes; unclassified (20 sources) History of excision of intestinal structure; Translations: [Acquired absence of other specified parts of digestive tract] Episodic Residual codes; unclassified (7 sources) Acquired absence of other specified parts of digestive tract; Translations: [ACQ ABSENCE OTH PART DIGESTV TRACT] Onset: 01-23-20 Episodic Residual codes; unclassified (7 sources) Localized edema; Translations: [LOCALIZED EDEMA] Onset: 03-28-20 Episodic Residual codes; unclassified (1 source) Edema of lower extremity; Translations: [Localized edema] 02-17-2024 Episodic Residual codes; unclassified (7 sources) Localized edema; Translations: [Localized edema] Onset: 03-16-20 25 03-16-2025 Episodic Residual codes; unclassified (1 source) Bladder absent; Translations: [Acquired absence of other parts of urinary tract] 05-19-2025 Episodic Residual codes; unclassified (1 source) Acquired absence of other parts of urinary tract; Translations: [Acquired absence of organ, urinary bladder] Onset: 05-19-20 Episodic Skin and subcutaneous tissue infections (11 sources) Carbuncle of buttock; Translations: [Pilonidal cyst without abscess] Episodic Spondylosis; intervertebral disc disorders; other back problems (20 sources) Lumbar spondylosis; Translations: [Inflammation of sacroiliac joint] Onset: 01-10-20 23 03-28-2020 Chronic Unclassified (20 sources) Asymptomatic microscopic hematuria 12-26-2020 Unclassified (20 sources) Body mass index 20-24 - normal 04-26-2020 Unclassified (2 sources) CONTACT W/AND (SUSP) EXPOS COVID-19; Translations: [CONTACT W/AND (SUSP) EXPOS COVID-19] Onset: 04-10-20 Urinary tract infections (20 sources) Urinary tract infectious disease; Translations: [Urinary tract infection, site not specified] 08-29-2020 Episodic Comment on above: Problem List clean-u p per request of Phys. EHR Cmte Viral infection (4 sources) COVID-19; Translations: [COVID-19] Onset: 04-09-20 Past or Other Problems Problem Classification Problem Date Documented Da te Episodic/Chronic Abdominal pain (5 sources) Generalized abdominal pain; Translations: [Generalized abdominal pain] Onset: 11-03-2022 Episodic Cancer of colon (20 sources) Personal history of other malignant neoplasm of large intestine; Translations: [History of malignant neoplasm of colon] Onset: 01-09-2023 Episodic Comment on above: Dx: 1980sPreoperativ e Chemoradiation, Coronary atherosclerosis and other heart disease (20 sources) Stented coronary artery; Translations: [Presence of coronary angioplasty implant and graft] Onset: 06-25-2023 Resolved: 03-16-2025 11-20-2023 Episodic Intestinal obstruction without hernia (20 sources) Stricture of colon; Translations: [Other intestinal obstruction unspecified as to partial versus complete obstruction] Onset: 09-30-2019 09-30-2019 Episodic Other diseases of bladder and urethra (1 source) Other urethral stricture, male, unspecified site; Translations: [OTH URETHRAL STRCT MALE UNSPEC SITE] Onset: 06-13-2022 Episodic Other gastrointestinal disorders (7 sources) Constipation, unspecified; Translations: [CONSTIPATION UNSPECIFIED] Onset: 11-03-2022 Episodic Other nervous system disorders (2 sources) Atypical facial pain; Translations: [Atypical facial pain] Onset: 05-06-2017 Episodic Residual codes; unclassified (4 sources) Never smoked any substance; Translations: [Other specified health status] Onset: 11-20-2023 11-20-2023 Episodic Unclassified (5 sources) colon ca resection( Confirmed ) 10-03-2010 Unclassified (17 sources) colon ca resection 10-03-2010 Unclassified (1 source) CONTACT W/AND (SUSP) EXPOS COVID-19; Translations: [CONTACT W/AND (SUSP) EXPOS COVID-19] Onset: 04-06-2022 Unclassified (4 sources) Never smoked tobacco; Translations: [Never a smoker] Unclassified (3 sources) Onset: 11-20-2023 Resolved: 03-16-2025 11-20-2023 Results Test Name Value Interpretation Reference Range Facility CNOVon 05-19-2025 CNOV Office Visit (RADTSA ) KENNEDY KONG ([id number]) 1935 M Date Time Provider Department 05/19/25 9:30 AM Suzanne GRAJEDA During your visit today, we recorded the following information about you: Suzanne Grajeda MD 05/19/2025 9:42 AM Signed Radiation Oncology - Follow Up Note PATIENT [...] fractions ELAPSED TIME: 42 days. INTERVAL HISTORY: Overall doing well. Denies any recent changes. Denies hematuria. RADIOLOGY: CT chest 05/14/2025:No metastatic disease in the chest. CT abdomen 05/14/2025: IMPRESSION: No metastatic disease in the abdomen or pelvis. CT chest 09/30/2024: New 1.1 cm right upper lobe nodule and 0.6 cm right middle lobe nodule. Consider PET CT to assess the dominant pulmonary nodule, otherwise attention on follow-up is recommended. CT abdomen and pelvis 09/30/2024: No metastatic disease in the abdomen or pelvis. 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 PET/CT 10/20/2024: Circumferential bladder wall thickening with perivesical and perirectal fat stranding likely representing postradiation changes. Nonavid right upper and middle lobe lung nodules, recommend follow-up with CT. ALLERGIES Allergen Reactions Amoxicillin Other: See Comments Pt gets sores in mouth MEDICATIONS: furosemide (LASIX) 20 mg tablet Take 20 mg by mouth at bedtime as needed. loratadine (CLARITIN) 10 mg tablet Take 10 mg by mouth. losartan (COZAAR) 25 mg tablet Take 25 mg by mouth once daily. sildenafil (VIAGRA) 50 mg tablet TAKE 1-2 TABLETS BY MOUTH 1 HR BEFORE SEXUAL ACTIVITY. DO NOT EXCEED 2 TABS/24 HRS. CARROLL CHEWABLE ASPIRIN 81 mg chewable tablet [...] mg cap Take by mouth once daily. iv contrast (will be provided with radiology [...] in the CT contrast administration guidelines link. enteric contrast (will be provided with radiology test) For CT CHESTABD/PEL W IVCON Routine order Administer, As Directed One Time Only, via Oral, Rectal, both Oral and Rectal, Enteric Tube, Stoma or Indwelling Catheter, Enteric Contrast as designated per enteric contrast guidelines iv contrast (will be provided with radiology [...] in the CT contrast administration guidelines link. enteric contrast (will be provided with radiology test) For CT CHESTABD/PEL W IVCON Routine order Administer, As Directed One Time Only, via Oral, Rectal, both Oral and Rectal, Enteric Tube, Stoma or Indwelling Catheter, Enteric Contrast as designated per enteric contrast guidelines iv contrast (will be provided with radiology [...] in the CT contrast administration guidelines link. enteric contrast (will be provided with radiology test) For CT CHESTABD/PEL W IVCON Routine order Administer, As Directed One Time Only, via Oral, Rectal, both Oral and Rectal, Enteric Tube, Stoma or Indwelling (more content not included)... Normal [facility] [place] CNOVS Visit (SP) Office ([facility]) KENNEDY KONG ([id number]) 1935 M Date Time Provider Department 05/19/25 9:00 AM EUGENE CHAPARRO During your visit today, we recorded the following information about you: Temperature Pulse Respiration Blood pressure 97.1 degrees 68/minute 16/minute 136/64 Weight Height 93.2 kg 1.784 m Eugene Chaparro MD 05/22/2025 10:08 AM Signed NAME: Kennedy Kong CLINIC NO.: [id number] DATE OF SERVICE: May 19, 2025 (Deann) Some elements in this clinic note that are critical to medical decision making have been carefully reviewed and included from a prior clinic note dated: January 29, 2025 (Deann) Referring Provider: Dr. Leigh Grajeda Additional Clinicians involved in Kennedy Kong's care: Lesa Estrella, Avel Heath, Kylie Dietrich CC: Follow up for treatment. DIAGNOSIS: High grade muscle invasive bladder cancer CASE SUMMARY / ASSESSMENT: 89 year old man with a history of [...] December 05, 2023, was identified as having [id number] invasive papillary bladder cancer and has been referred to Radiation oncology and subsequently to me for an opinion regarding chemotherapy. 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 He would likely tolerate low dose weekly cisplatin for radiosensitizing given appropriate supportive therapy. Will Coordinate with Dr. Grajeda. CT done today January 29, 2025 show resolution of lung nodule and no evidence of recurrence. SUMMARIZED PLAN OF CARE: Follow up with Dr. Dietrich as scheduled CT CAP with labs in 6 months RTC 1 week after AI Assisted A/P: 1. 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 Patient has been clear since completing chemotherapy and radiation in January-February of last year. - Continue follow-up with Dr. Dietrich every 3 months. - Extend interval for surveillance scans to every 6 months. 2. 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 Previous concern for a nodule in September of last year led to a PET scan, which showed no concerning findings. - Monitor with follow-up imaging in 6 months. 3. Atherosclerosis of aorta (I70.0) CT scans revealed plaque formation in the aorta, consistent with vascular disease. No aneurysm detected in the abdomen. - CASE HISTORY: Reverse Chronological Order 05/14/2025 - CT CAP: Chest: No metastatic disease in the chest. A/P: No metastatic disease in the abdomen or pelvis. 01/29/2025 - CT CAP: Chest: 1. There has been interval resolution of the previously identified 1.1 cm right upper lobe nodule. Additional subcentimeter nodularity adjacent to this region along the right major fissure appears less conspicuous. 2. Additional subcentimeter left-sided pulmonary nodules are unchanged. 3. No substantial intrathoracic adenopathy is identified. A/P: 1. Stable postoperative appearance to the abdomen and pelvis, without evidence for metastatic disease. 2. Circumferential wall thickening involving the distal sigmoid/rectum again the basis of prior radiation therapy, stable in appearance. 3. Wall thickening involving the urinary bladder, more prominent along the right lateral aspect is stable, also likely posttreatment related. 11/23/2024 - Cystoscopy: Dr. Dietrich Findings: Recurrent bulbar urethral stricture No new barrera bladder tumors Erythematous slightly raised mucosa along the back wall and dome Cytology: Urinary bladder washings: Groups of atypical urothelial cells noted Acute inflammation 10/20/2024 - PET/CT: Circumferential bladder wall thickening with perivesical and perirectal fat stranding likely representing postradiation changes. Nonavid right upper and middle lobe lung nodules, recommend follow-up with CT. 09/30/2024 - CT CAP: Chest: New 1.1 cm right upper lobe nodule and 0.6 cm right mi (more content not included)... Normal [facility] CBC W Auto Differential pane l (Bld)on 05-14-2025 Basophils (Bld) [#/Vol] 0.04 10*3/uL [facility] Basophils/100 WBC (Bld) 0.9 % C [facility] Differential cell count method Nom (Bld) Auto [facility] Eosinophils (Bld) [#/Vol] 0.69 10*3/uL High [facility] [facility] Eosin[facility]/100 WBC (Bld) 15.2 % [facility] Erythrocyte distribution width (RBC) [Ratio] 12.9 % 11.5 - 15.0 % [facility] Hematocrit (Bld) [Volume fraction] 38.4 % Low 39.0 - 51.0 % [facility] Hemoglobin (Bld) [Mass/Vol] 12.5 g/dL Low 13.0 - 17.0 g/dL [facility] Immature granulocytes (Bld) [#/Vol] [facility] Immature granulocytes/100 WBC (Bld) 0.2 % [facility] Interpretation and review of laboratory results Abnormal [facility] Lymphocytes (Bld) [#/Vol] 1.15 10*3/uL [facility] Lymphocytes/100 WBC (Bld) 25.3 % [facility] MCH (RBC) [Entitic mass] 30.6 pg 26.0 - 34.0 pg [facility] MCHC (RBC) [Mass/Vol] 32.6 g/dL 30.5 - 36.0 g/dL [facility] MCV (RBC) [Entitic vol] 94.1 fL 80.0 - 100.0 fL [facility] Monocytes (Bld) [#/Vol] 0.54 10*3/uL [facility] Monocytes/100 WBC (Bld) 11.9 % [facility] Neutrophils (Bld) [#/Vol] 2.12 10*3/uL [facility] Neutrophils/100 WBC (Bld) 46.5 % [facility] Nucleated RBC (Bld) [#/Vol] [facility] Nucleated RBC/100 WBC (Bld) [Ratio] 0 % /100 WBC [facility] Platelet mean volume (Bld) [Entitic vol] 9 fL 9.0 - 12.7 fL [facility] Platelets (Bld) [#/Vol] 176 10*3/uL [facility] RBC (Bld) [#/Vol] 4.08 10*6/uL Low 4.20 - 6.0 0 m/uL [facility] WBC (Bld) [#/Vol] 4.55 10*3/uL [facility] Basophils (Bld) [#/Vol] 0.04 10*3/uL Normal <0.11 [facility] Comment on above: Order Comment: Speci men Type: BLOOD SPECIMENOrdering Facility: [facility] Address: [address] [place] [address] Performed By: #### 5 7021-8 ####[facility] LABCLIA [id number] [place] [address] Basophils/100 WBC (Bld) 0.9 % Normal [facility] Comment on above: Order Comment: Speci men Type: BLOOD SPECIMENOrdering Facility: [facility] Address: [address] [place] [address] Performed By: #### 5 7021-8 ####[facility] LABCLIA [id number] [place] [address] Differential cell count method Nom (Bld) Auto Normal [facility] Comment on above: Order Comment: Speci men Type: BLOOD SPECIMENOrdering Facility: [facility] Address: [address] [place] [address] Performed By: #### 5 7021-8 ####[facility] LABCLIA [id number] [place] [address] Eosinophils (Bld) [#/Vol] 0.69 10*3/uL High <0.46 [facility] Comment on above: Order Comment: Speci men Type: BLOOD SPECIMENOrdering Facility: [facility] Address: [address] [place] [address] Performed By: #### 5 7021-8 ####[facility] LABCLIA [id number] [place] [address] Eosinophils/100 WBC (Bld) 15.2 % Normal [facility] Comment on above: Order Comment: Speci men Type: BLOOD SPECIMENOrdering Facility: [facility] Address: [address] [place] [address] Performed By: #### 5 7021-8 ####[facility] LABCLIA [id number] [place] [address] Erythrocyte distribution width (RBC) [Ratio] 12.9 % Normal 11.5-15.0 [facility] Comment on above: Order Comment: Speci men Type: BLOOD SPECIMENOrdering Facility: [facility] Address: [address] [place] [address] Performed By: #### 5 7021-8 ####[facility] LABIA [id number] [place] [address] Hematocrit (Bld) [Volume fraction] 38.4 % Low 39.0-51.0 [facility] Comment on above: Order Comment: Speci men Type: BLOOD SPECIMENOrdering Facility: [facility] Address: [address] [place] [address] Performed By: #### 5 7021-8 ####[facility] LABCLIA [id number] [place] [address] Hemoglobin (Bld) [Mass/Vol] 12.5 g/dL Low 13.0-17.0 [facility] Comment on above: Order Comment: Speci men Type: BLOOD SPECIMENOrdering Facility: [facility] Address: [address] [place] [address] Performed By: #### 5 7021-8 ####[facility] LABIA [id number] [place] [address] Immature granulocytes (Bld) [#/Vol] 10*3/uL Normal <0.10 [facility] Comment on above: Order Comment: Speci men Type: BLOOD SPECIMENOrdering Facility: [facility] Address: [address] [place] [address] Performed By: #### 5 7021-8 ####[facility] LABCLIA [id number] [place] [address] Immature granulocytes/100 WBC (Bld) 0.2 % Normal [facility] Comment on above: Order Comment: Speci men Type: BLOOD SPECIMENOrdering Facility: [facility] Address: [address] [place] [address] Performed By: #### 5 7021-8 ####[facility] LABCLIA [id number] [place] [address] Lymphocytes (Bld) [#/Vol] 1.15 10*3/uL Normal 1.00-4.00 [facility] Comment on above: Order Comment: Speci men Type: BLOOD SPECIMENOrdering Facility: [facility] Address: [address] [place] [address] Performed By: #### 5 7021-8 ####[facility] LABCLIA [id number] [place] [address] Lymphocytes/100 WBC (Bld) 25.3 % Normal [facility] Comment on above: Order Comment: Speci men Type: BLOOD SPECIMENOrdering Facility: [facility] Address: [address] [place] [address] Performed By: #### 5 7021-8 ####[facility] LABCLIA [id number] [place] [address] MCH (RBC) [Entitic mass] 30.6 pg Normal 26.0-34.0 [facility] Comment on above: Order Comment: Speci men Type: BLOOD SPECIMENOrdering Facility: [facility] Address: [address] [place] [address] Performed By: #### 5 7021-8 ####[facility] LABCLIA [id number] [place] [address] MCHC (RBC) [Mass/Vol] 32.6 g/dL Normal 30.5-36.0 [facility] Comment on above: Order Comment: Speci men Type: BLOOD SPECIMENOrdering Facility: [facility] Address: [address] [place] [address] Performed By: #### 5 7021-8 ####[facility] LABCLIA [id number] [place] [address] MCV (RBC) [Entitic vol] 94.1 fL Normal 80.0-100.0 [facility] Comment on above: Order Comment: Speci men Type: BLOOD SPECIMENOrdering Facility: [facility] Address: [address] [place] [address] Performed By: #### 5 7021-8 ####[facility] LABCLIA [id number] [place] [address] Monocytes (Bld) [#/Vol] 0.54 10*3/uL Normal <0.87 [facility] Comment on above: Order Comment: Speci men Type: BLOOD SPECIMENOrdering Facility: [facility] Address: [address] [place] [address] Performed By: #### 5 7021-8 ####[facility] LABCLIA [id number] [place] [address] Monocytes/100 WBC (Bld) 11.9 % Normal [facility] Comment on above: Order Comment: Speci men Type: BLOOD SPECIMENOrdering Facility: [facility] Address: [address] [place] [address] Performed By: #### 5 7021-8 ####[facility] LABCLIA [id number] [place] [address] Neutrophils (Bld) [#/Vol] 2.12 10*3/uL Normal 1.45-7.50 [facility] Comment on above: Order Comment: Speci men Type: BLOOD SPECIMENOrdering Facility: [facility] Address: [address] [place] [address] Performed By: #### 5 7021-8 ####[facility] LABCLIA [id number] [place] [address] Neutrophils/100 WBC (Bld) 46.5 % Normal [facility] Comment on above: Order Comment: Speci men Type: BLOOD SPECIMENOrdering Facility: [facility] Address: [address] [place] [address] Performed By: #### 5 7021-8 ####[facility] LABCLIA [id number] [place] [address] Nucleated RBC (Bld) [#/Vol] 10*3/uL Normal <0.01 [facility] Comment on above: Order Comment: Speci men Type: BLOOD SPECIMENOrdering Facility: [facility] Address: [address] [place] [address] Performed By: #### 5 7021-8 ####[facility] LABCLIA [id number] [place] [address] Nucleated RBC/100 WBC (Bld) [Ratio] 0.0 /100 WBC Normal [facility] Comment on above: Order Comment: Speci men Type: BLOOD SPECIMENOrdering Facility: [facility] Address: [address] [place] [address] Performed By: #### 5 7021-8 ####[facility] LABCLIA [id number] [place] [address] Platelet mean volume (Bld) [Entitic vol] 9.0 fL Normal 9.0-12.7 [facility] Comment on above: Order Comment: Speci men Type: BLOOD SPECIMENOrdering Facility: [facility] Address: [address] [place] [address] Performed By: #### 5 7021-8 ####[facility] LABCLIA [id number] [place] [address] Platelets (Bld) [#/Vol] 176 10*3/uL Normal 150-400 [facility] Comment on above: Order Comment: Speci men Type: BLOOD SPECIMENOrdering Facility: [facility] Address: [address] [place] [address] Performed By: #### 5 7021-8 ####[facility] LABIA [id number] [place] [address] RBC (Bld) [#/Vol] 4.08 10*6/uL Low 4.20-6.00 [facility] Comment on above: Order Comment: Speci men Type: BLOOD SPECIMENOrdering Facility: [facility] Address: [address] [place], [place] [address] Performed By: #### 5 7021-8 ####[facility] LABIA [id number] [place] [address] WBC (Bld) [#/Vol] 4.55 10*3/uL Normal 3.70-11.00 [facility] Comment on above: Order Comment: Speci men Type: BLOOD SPECIMENOrdering Facility: [facility] Address: [address] [place], [place] [address] Performed By: #### 5 7021-8 ####[facility] LABIA [id number] [place] [address] CT ABD/PEL W IVCONon 25-[address] ABD/PEL W IVCON * * *Final Report* * * DATE OF EXAM: May 14 2025 9:02AM [facility] 0530 - CT ABD/PEL W IVCON / [...] was performed concurrently and is dictated separately. Bindery Machine Setter/Set Up Operator (topogram) images: Unremarkable. IMPRESSION: No metastatic disease in the abdomen [...] any questions regarding this interpretation, please call [phone]. If you are unable to reach us at the number above, please feel free to contact [facility] eRadiology at [phone]. [id number] N Normal [facility] CT Abdomen and Pelvis W cont rast Jassi 05-14-2025 IMPRESSION: No metastatic disease in the abdomen [...] any questions regarding this interpretation, please call [phone]. If you are unable to reach us at the number above, please feel free to contact [facility] at [phone]. DIVISION OF RADIOLOGY * * *Final Report* * * DATE OF EXAM: May 14 2025 9:02AM [facility] 0530 - CT ABD/PEL W IVCON / [...] was performed concurrently and is dictated separately. Bindery Machine Setter/Set Up Operator (topogram) images: Unremarkable. DIVISION OF RADIOLOGY Provider, Moon Charles [facility] - 05/14/2025 * * *Final Report* * * DATE OF EXAM: May 14 2025 9:02AM [facility] 0530 - CT ABD/PEL W IVCON / [...] was performed concurrently and is dictated separately. Bindery Machine Setter/Set Up Operator (topogram) images: Unremarkable. IMPRESSION IMPRESSION: No metastatic [...] any questions regarding this interpretation, please call [phone]. If you are unable to reach us at the number above, please feel free to contact [facility] eRadiology at [phone]. [facility] CT Abdomen and Pelvis W cont rast IVOrdered By: Ccf Provider on 05-14-20[address] [facility] CT CHEST W IVCONon CT CHEST W IVCON * * *Final Report* * * DATE OF EXAM: May 14 2025 9:02AM [facility] 0539 - CT CHEST W IVCON / [...] was performed concurrently and is dictated separately. Bindery Machine Setter/Set Up Operator (topogram) images: Unremarkable. IMPRESSION: No metastatic disease in the chest. Transcribe Date/Time: May 14 2025 1:13P Dictated by: JASWINDER DICKERSON MD This examination was interpreted and the report reviewed and electronically signed by: JASWINDER DICKERSON MD on May 14 2025 1:25PM EST Thank you for allowing us to participate in the care of your patient. Should there be any questions regarding this interpretation, please call [phone]. If you are unable to reach us at the number above, please feel free to contact [facility] eRadiology at [phone]. [id number] N Normal [facility] CT Chest W contrast Jassi IMPRESSION: No metastatic disease in the chest. Transcribe Date/Time: May 14 2025 1:13P Dictated by: JASWINDER DICKERSON MD This examination was interpreted and the report reviewed and electronically signed by: JASWINDER DICKERSON MD on May 14 2025 1:25PM EST Thank you for allowing us to participate in the care of your patient. Should there be any questions regarding this interpretation, please call [phone]. If you are unable to reach us at the number above, please feel free to contact [facility] eRadiology at [phone]. DIVISION OF RADIOLOGY * * *Final Report* * * DATE OF EXAM: May 14 2025 9:02AM [facility] 0539 - CT CHEST W IVCON / [...] was performed concurrently and is dictated separately. Bindery Machine Setter/Set Up Operator (topogram) images: Unremarkable. DIVISION OF RADIOLOGY Provider, [facility] - 05/14/2025 * * *Final Report* * * DATE OF EXAM: May 14 2025 9:02AM [facility] 0539 - CT CHEST W IVCON / [...] was performed concurrently and is dictated separately. Bindery Machine Setter/Set Up Operator (topogram) images: Unremarkable. IMPRESSION IMPRESSION: No metastatic [...] any questions regarding this interpretation, please call [phone]. If you are unable to reach us at the number above, please feel free to contact [facility] eRadiology at [phone]. [facility] Comprehensive metabolic [address] panelOrdered By: Julio [address] on 05-14-2025 Albumin [Mass/Vol] 4.1 g/dL 3.9 - 4.9 g/dL [facility] ALP [Catalytic activity/Vol] 70 U/L 38 - 113 U/L [facility] ALT [Catalytic activity/Vol] 16 U/L 10 - 54 U/L [facility] Anion gap [Moles/Vol] 11 mmol/L 8 - 15 mmol/L [facility] AST [Catalytic activity/Vol] 18 U/L 14 - 40 U/L [facility] Bilirubin [Mass/Vol] 0.3 mg/dL 0.2 - 1 .3 mg/dL [facility] Calcium [Mass/Vol] 9.4 mg/dL 8.5 - 10. 2 mg/dL [facility] Chloride [Moles/Vol] 105 mmol/L 98 - 10 7 mmol/L [facility] CO2 [Moles/Vol] 26 mmol/L 22 - 30 mmol/L [facility] Creatinine [Mass/Vol] 0.95 mg/dL 0.73 - 1.22 mg/dL [facility] GFR/1.73 sq M.predicted among non-blacks MDRD (S/P/Bld) [Vol rate/Area] 77 mL/min/{1.73_m2} - PINF [facility] Comment on above: Estimated Glomerular [...] not accurately reflect actual GFR. Glucose [Mass/Vol] 106 mg/dL High 74 - 99 mg/dL [facility] Comment on above: The [place] Diab[employer] Association (ADA) provides guidance for [...] Standards of Medical Care in Diabetes 2016, [place] [employer]. Diabetes Care. 2016.39(Suppl 1). Interpretation and review of laboratory results Abnormal [facility] Potassium [Moles/Vol] 3.9 mmol/L 3.7 - 5.1 mmol/L [facility] Protein [Mass/Vol] 6.8 g/dL 6.3 - 8.0 g/dL [facility] Sodium [Moles/Vol] 142 mmol/L 136 - 144 mmol/L [facility] Urea nitrogen [Mass/Vol] 24 mg/dL 9 - 24 mg/dL [facility] Comprehensive metabolic 2000 panelon 05-14-2025 Albumin [Mass/Vol] 4.1 g/dL Normal 3.9-4.9 [facility] Comment on above: Order Comment: Caril arthur Type: BLOOD SPECIMEN [facility] Address: [address] [place] [address] Performed By: #### 2 4323-8 #### [facility] CLIA [id number] [address] [place] [address] ALP [Catalytic activity/Vol] 70 U/L Normal 38-113 [facility] Comment on above: Order Comment: Carli arthur Type: BLOOD SPECIMEN [facility] Address: [address] [place] [address] Performed By: #### 2 4323-8 #### [facility] CLIA [id number] [address] [place] [address] ALT [Catalytic activity/Vol] 16 U/L Normal 10-54 [facility] Comment on above: Order Comment: Speci men Type: BLOOD SPECIMEN [facility] Address: [address] [place] [address] Performed By: #### 2 4323-8 #### [facility] CLIA [id number] [address] [place] [address] Anion gap [Moles/Vol] 11 mmol/L Normal 8-15 [facility] Comment on above: Order Comment: Speci men Type: BLOOD SPECIMEN [facility] Address: [address] [place] [id number] Performed By: #### 2 4323-8 #### [facility] CLIA [id number] [address] [place] [address] AST [Catalytic activity/Vol] 18 U/L Normal 14-40 [facility] Comment on above: Order Comment: Speci men Type: BLOOD SPECIMEN [facility] Address: [address] [place] [id number] Performed By: #### 2 4323-8 #### [facility] CLIA [id number] [address] [place] [address] Bilirubin [Mass/Vol] 0.3 mg/dL Normal 0.2-1.3 [facility] Comment on above: Order Comment: Speci men Type: BLOOD SPECIMEN [facility] Address: [address] [place] [address] Performed By: #### 2 4323-8 #### [facility] CLIA [id number] [address] [place] [address] Calcium [Mass/Vol] 9.4 mg/dL Normal 8.5-10.2 [facility] Comment on above: Order Comment: Speci men Type: BLOOD SPECIMEN [facility] Address: [address] [place] [address] Performed By: #### 2 4323-8 #### [facility] CLIA [id number] [address] [place] [address] Chloride [Moles/Vol] 105 mmol/L Normal 98-107 [facility] Comment on above: Order Comment: Speci men Type: BLOOD SPECIMEN [facility] Address: [address] [place] [address] Performed By: #### 2 4323-8 #### [facility] CLIA [id number] [address] [place] [address] CO2 [Moles/Vol] 26 mmol/L Normal 22-30 [facility] Comment on above: Order Comment: Speci men Type: BLOOD SPECIMEN [facility] Address: [address] [place] [address] Performed By: #### 2 4323-8 #### [facility] CLIA [id number] [address] [place] [address] Creatinine [Mass/Vol] 0.95 mg/dL Normal 0.73-1.22 [facility] Comment on above: Order Comment: Speci men Type: BLOOD SPECIMEN [facility] Address: [address] [place] [address] Performed By: #### 2 4323-8 #### [facility] CLIA [id number] [address] [place] [address] eGFRcr SerPlBld CKD-EPI 2020 77 mL/min/1.73m??? Normal >=60 [facility] Comment on above: Order Comment: Speci men Type: BLOOD SPECIMEN [facility] Address: [address] [place], [place] [address] Result Comment: Cristina mated Glomerular Filtration Rate [...] actual GFR. Performed By: #### 2 4323-8 #### [facility] CLIA [id number] [address] [place] [address] Glucose [Mass/Vol] 106 mg/dL High 74-99 [facility] Comment on above: Order Comment: Carli arthur Type: BLOOD SPECIMEN [facility] Address: [address] [place] [address] Result Comment: The [place] Diabetes Association (ADA) provides guidance for cutoff [...] Standards of Medical Care in Diabetes 2016, [place] Diabetes Association. Diabetes Care. 2016.39(Suppl 1). Performed By: #### 2 4323-8 #### [facility] CLIA [id number] [address] [place] [address] Potassium [Moles/Vol] 3.9 mmol/L Normal 3.7-5.1 [facility] Comment on above: Order Comment: Carli arthur Type: BLOOD SPECIMEN [facility] Address: [address] [place] [address] Performed By: #### 2 4323-8 #### [facility] CLIA [id number] [address] [place] [address] Protein [Mass/Vol] 6.8 g/dL Normal 6.3-8.0 [facility] Comment on above: Order Comment: Carli arthur Type: BLOOD SPECIMEN [facility] Address: [address] [place] [address] Performed By: #### 2 4323-8 #### [facility] CLIA [id number] [address] [place] [address] Sodium [Moles/Vol] 142 mmol/L Normal 136-144 [facility] Comment on above: Order Comment: Speci men Type: BLOOD SPECIMEN [facility] Address: [address] [place] [address] Performed By: #### 2 4323-8 #### [facility] CLIA [id number] [address] [place] [address] Urea nitrogen [Mass/Vol] 24 mg/dL Normal 9-24 [facility] Comment on above: Order Comment: Speci men Type: BLOOD SPECIMEN [facility] Address: [address] [place] [address] Performed By: #### 2 4323-8 #### [facility] CLIA [id number] [address] [place] [address] FERRITINon 05-14-2025 Ferritin [Mass/Vol] 70.1 ng/mL 30.3 - 565.7 ng/mL [facility] FOLATE, SERUMon 05-14-2025 Folate [Mass/Vol] ng/mL 4.7 - PINF ng/mL [facility] Comment on above: A result of > 20 ng/ mL is not necessarily indicative of a pathologic or treatable condition: it reflects a limitation of the test methodology. Assay reference range: 4.8 to 24.2 ng/mL. Suitable for detection of folate deficiency. Reference: Folate III (Folate III) [package insert V 1.0 [place]ican]. [facility], [place], [place]: August 2015. Ferritin SerPl-mCncon 2024 Ferritin [Mass/Vol] 70.1 ng/mL Normal 30.3-565.7 [facility] Comment on above: Order Comment: Speci men Type: BLOOD SPECIMENOrdering Facility: [facility] Address: [address] [place], [place] [address] Performed By: #### 5 0190-8, 2276-4, 2284-05, 2132-06 ####[facility] LABCLIA [id number] [place] [id number] [place] Folate SerPl-ncon 05-14-20 25 Folate [Mass/Vol] ng/mL Normal >4.7 [facility] Comment on above: Order Comment: Speci men Type: BLOOD SPECIMENOrdering Facility: [facility] Address: [address] [place] [address] Result Comment: A re sult of > 20 ng/mL is not necessarily indicative of a pathologic or treatable condition: it reflects a limitation of the test methodology. Assay reference range: 4.8 to 24.2 ng/mL. Suitable for detection of folate deficiency. Reference: Folate III (Folate III) [package insert V 1.0 [place]]. Out[facility], [place], [place]: August 2015. Performed By: #### 5 0190-8, 2276-4, 2284-05, 2132-06 ####[facility] LABCLIA [id number] [place] [id number] [place] Iron and Iron binding capaci ty panel 05-14-2025 Interpretation and review of laboratory results Normal [facility] Iron [Mass/Vol] 82 ug/dL 41 - 186 ug/dL [facility] Iron binding capacity [Mass/Vol] 270 ug/dL 232 - 386 ug/dL [facility] Iron/TIBC [Molar ratio] 30.4 % 15.0 - 57.0 % [facility] Iron [Mass/Vol] 82 ug/dL Normal 41-186 [facility] Comment on above: Order Comment: Speci men Type: BLOOD SPECIMEN [facility] Address: [address] [place] [address] Performed By: #### 5 7021-8 #### [facility] CLIA [id number] [address] [place] [address] Iron binding capacity [Mass/Vol] 270 ug/dL Normal 232-386 [facility] Comment on above: Order Comment: Speci men Type: BLOOD SPECIMEN [facility] Address: [address] [place] [id number] Performed By: #### 5 7021-8 #### [facility] CLIA [id number] [address] [place] [address] Iron/TIBC [Molar ratio] 30.4 % Normal 15.0-57.0 [facility] Comment on above: Order Comment: Speci men Type: BLOOD SPECIMEN [facility] Address: [address] [place], [place] [address] [id number] Performed By: #### 5 7021-8 #### [facility] CLIA [id number] [address] [place] [address] No Panel Informationon 05-14 Interpretation and review of laboratory results Normal [facility] Radiology Study observation (narrative) [facility] VITAMIN B12on 05-14-2025 Cobalamin (Vitamin B12) [Mass/Vol] 797 pg/mL 232 - 1245 pg/mL [facility] Vit B12 SerPl-mCncon 025 Cobalamin (Vitamin B12) [Mass/Vol] 797 pg/mL Normal 232-1245 [facility] Comment on above: Order Comment: Speci men Type: BLOOD SPECIMEN [facility] Address: [address] [place], [place] [address] [id number] Performed By: #### 5 7021-8 #### [facility] CLIA [id number] [address] [place], [place] [id number] Ambulatory Visit Summaryon 0 04-02-2025 Ambulatory Visit Summary Ambulatory Visit Summary KENNEDY KONG :1935 Visit Date:04/02/2025 Ambulatory Visit Instructions Your Diagnosis ED (erectile dysfunction) Urge incontinence Bladder cancer BPH with obstruction/lower urinary tract symptoms Your Care Team Attending Physician - TRINA BARRAGAN PA-C Primary Care Physician - LESA ESTRELLA DO This Is Your Medications List Non-Formulary Medication (super beta prostate) losartan (losartan 25 mg Tab) lubiprostone (lubiprostone 24 mcg Cap) ondansetron (ondansetron 8 mg Tab) rosuvastatin (rosuvastatin 40 mg Tab) tamsulosin (tamsulosin 0.4 mg Cap) ticagrelor (Brilinta (ticagrelor) 90 mg oral tablet) vibegron (Gemtesa 75 mg oral tablet) Procedures Performed Radiation therapy care (03/02/2024), TURBT - Transurethral resection of bladder tumor (12/05/2023), Endoscopic destruction of bladder tumor by laser (12/13/2020), TURBT - Transurethral resection of bladder tumor (05/26/2020), Hydrocelectomy (2001), Cardiac catheterization, Cataract, colon resection, colonoscopy. Discharge Vitals Temperature (Temporal Artery) 36.9 ???C Heart Rate (Peripheral) 63 Respiratory Rate 16 Blood Pressure 127/69 Height 179 cm Height 70 in Weight 86.2 kg Weight 190.038 lb BMI 26.9 What to do next Scheduled Follow-Up Appointments Saturday 8:30 AM EDT With: WILY CHOI, Kylie Restrepo Where: [facility] [address] You Need to Schedule the Following Appointments Follow Up with [facility] Shila When: Comments: For procedure as scheduled. Where: Medications What How Much When Why Instructions Unchanged losartan (losartan 25 mg Tab) TAKE 1 TABLET BY MOUTH EVERY DAY Unchanged lubiprostone (lubiprostone 24 mcg Cap) TAKE 1 CAPSULE BY MOUTH TWICE A DAY FOR 7 DAYS Unchanged Non-Formulary Medication (super beta prostate) See instructions Unchanged ondansetron (ondansetron 8 mg Tab) Unchanged rosuvastatin (rosuvastatin 40 mg Tab) TAKE 1 TABLET BY MOUTH EVERY DAY Unchanged tamsulosin (tamsulosin 0.4 mg Cap) 2 Capsules By Mouth Every day Unchanged ticagrelor (Brilinta (ticagrelor) 90 mg oral tablet) 60 EA, TAKE 1 TABLET BY MOUTH EVERY 12 HOURS FOR 30 DAYS Unchanged vibegron (Gemtesa 75 mg oral tablet) 1 Tablets By Mouth Every day Urge incontinence Bladder cancer BPH with obstruction/lower urinary tract symptoms Allergies No Known Allergies Problems Ongoing - Any problem that you are currently receiving treatment for. 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 colon ca resection hydrocele Patient Survey You may receive a survey via text or e-mail asking about your office visit. Please share your experience with us by completing your survey. We appreciate your feedback and thank you for choosing us for your care. Education Materials Erectile Dysfunction Erectile dysfunction (ED) is the inability to get or keep an erection in order to have sexual intercourse. ED is considered a symptom of an underlying disorder and is not considered a disease. ED may include: ??? Inability to get an erection. ??? Lack of enough hardness of the erection to allow penetration. ??? Loss of erection before sex is finished. What are the causes? This condition may be caused by: ??? Physical causes, such as: ? Artery problems. This may include heart disease, high blood pressure, atherosclerosis, and diabetes. ? Hormonal problems, such as low testosterone. ? Obesity. ? Nerve problems. This may include back or pelvic injuries, multiple sclerosis, Parkinson's disease, spinal cord injury, and stroke. ??? Certain medicines, such as: ? Pain relievers. ? Antidepressants. ? Blood pressure medicines and water pills (diuretics). ? Cancer medicines. ? Antihistamines. ? Muscle relaxants. ??? Lifestyle factors, such as: ? Use of drugs such as marijuana, cocaine, or opioids. ? Excessive use of alcohol. ? Smoking. ? Lack of physical activity or exercise. ??? Psychological causes, such as: ? Anxiety or stress. ? Sadness or depression. ? Exhaustion. ? Fear about sexual performance. ? Guilt. What are the signs or symptoms? Symptoms of this condition include: ??? Inability to get an erection. ??? Lack of enough hardness o (more content not included)... [facility] Office/Clinic Noteon 04-02-2025 Urology Office/Clinic Note Urology Office/Clinic Note Chief Complaint ED HPI Staff Pt is here today to discuss ED. RADHA score of 0. Pt is interested in treatment options for ED. Review of Systems PHQ Score Initial Depression Screen Score: 0 SCORE No fever, chills, malaise, myalgia. No abdominal pain, flank pain, gross hematuria. Physical Exam Vitals & Measurements T: 36.9 ???C(Temporal Artery) HR: 63(Peripheral) RR: 16 BP: 127/69 HT: 179 cm HT: 70 in WT: 86.2 kg WT: 190.038 lb BMI: 26.9 General: nontoxic, NAD Assessment/Plan UA completed in office today shows no significant microhematuria or signs of infection. Advised pt does show significant dehydration. Encouraged increased fluid intake. PVR 28ml. Emptying well. 1. ED (erectile dysfunction) (N52.9: Male erectile dysfunction, unspecified) passed 5 yrs ago. Has new partner and they are both interested in sex. Pt has issues achieving erection yes, firmness yes, maintaining erection yes, reaching climax yes ED contributing factors: Cardiovascular disease yes, hypertension yes, diabetes mellitus no, hyperlipidemia yes smoking no recreational drugs no, alcohol no, major surgery (radical prostatectomy) or radiotherapy (pelvis or retroperitoneum) yes Spinal cord and brain injuries no, Parkinson disease no, Alzheimer disease no, multiple sclerosis no, stroke no Peyronie's disease no, penile fracture no Hypogonadism no, hyper/hypothyroidism no Antihypertensives yes, antidepressants no, antipsychotics no, antiandrogens no, Performance-related anxiety no, traumatic past experiences no, relationship problems no, anxiety/depression no Pt has tried: vacuum device no, oral medications no Today we discussed all treatment options for ED including oral medications, erectile pumps, intracorporeal injection, and surgical options. We reviewed all of his contributing factors including those that are within his control to change and those which are not. Pt has decided that he would like to try oral medications - risks/benefits, side effects,interactions, and proper use discussed He prefers to start Viagra and would like rx sent to [facility]. Pt does see Dr Morgan, cardiology [place]. Will obtain clearance from their office to start PD5. Ordered: Complex E&M Add on G2211 E&M of Est. Patient Moderate 30-39 Min 45022 2. Urge incontinence (N39.41: Urge incontinence) See note 03/19/25 for details. Waiting to start Gemtesa/vibegron from [employer] (was $600 at [facility] locally). If unable, next steps could be HBO at [facility] vs Condom Cath (discussed today - pt declined). Ordered: Complex E&M Add on G2211 E&M of Est. Patient Moderate 30-39 Min 28195 3. Bladder cancer (C67.9: Malignant neoplasm of bladder, unspecified) See note 03/19/25 for details. Scope scheduled for 06/14/25. Ordered: Complex E&M Add on G2211 E&M of Est. Patient Moderate 30-39 Min 53287 4. 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 Continues Flomax BID. Ordered: 51816 Measure Post Void residual urine and/or bladder capacity by US- non-imaging Complex E&M Add on G2211 E&M of Est. Patient Moderate 30-39 Min 94991 Urnls Dip Stick Auto w/o Microscopy POC 68910 Orders: vibegron, 75 mg = 1 tab(s), Oral, Daily, X 30 day(s), # 30 tab(s), Refills(s) 11, Pharmacy: [facility]/pharmacy #[id number], 179, cm, 03/19/25 8:56:00 EDT, Height/Length Dosing, 86.9, kg, 03/19/25 8:56:00 EDT, Weight Dosing Follow-up With When Contact Information [facility] Additional Instructions: For procedure as scheduled. Patient Education Erectile Dysfunction Problem List/Past Medical History Ongoing Bladder cancer BMI 24.0-24.9, adult BPH with obstruction/lower urinary tract symptoms Chronic kidney disease Chronic venous insufficiency ED (erectile dysfunction) History of ulcerative colitis Hydrocele Hyperlipidemia Lumbar spondylosis Myocardial infarct Osteoarthritis of right hip Recurrent bladder papillary carcinoma Renal cyst Right hip pain Trigeminal neuralgia of right side of face Urge incontinence UTI (urinary tract infection) Historical colon ca resection hydrocele Procedure/Surgical History Radiation therapy care (03/02/2024), TURBT - Transurethral resection of bladder tumor (12/05/2023), Endoscopic destruction of bladder tumor by laser (12/13/2020), TURBT - Transurethral resection of bladder tumor (05/26/2020), Hydrocelectomy (2001), Cardiac catheterization, Cataract, colon resection, colonoscopy. Medications Brilinta (ticagrelor) 90 mg oral tablet Gemtesa 75 mg oral tablet, 75 mg= 1 tab(s), Oral, Daily, 3 refills losartan 25 mg Tab lubiprostone 24 mcg Cap ondansetron 8 mg Tab rosuvastatin 40 mg Tab super beta prostate, See Instructions tamsulosin 0.4 mg Cap, 0.8 mg= 2 cap(s), Oral, Daily Allergies No Known Allergies Social History (more content not included)... [facility] Comment on above: Result Comment: Elec tronically Signed By: LAUREL ESCOBEDO, TRINA [place]\.br\Date and Time Signed: 04/02/25 10:12 EDT Reminderson 04-01-2025 Reminders Reminders From: Lucero Sutherland To: [facility] - Recalls Dietrich; Sent: 04/01/2025 14:21:12 EDT Show up: 09/20/2025 14:20:00 EST Subject: cysto/fish/cytol Due Date/Time: 10/18/2025 14:21:00 EST Reminder/Recall Patient is due in Nov 2025 for 6 month cysto/fish/cytol, bt ck [facility] Reminders Reminders From: Lucero Sutherland To: [facility] - Recalls Dietrich; Sent: 10/29/2024 13:50:44 EST Show up: 01/19/2025 13:50:00 EDT Subject: cysto/fish/cytol Due Date/Time: 02/15/2025 13:50:00 EDT Reminder/Recall Patient is due in March 2025 for 4 month cysto/fish/cytol, bt ck Patient is due in 6 month for cysto 05/2025 Patient has appt 03/19/25, will sched Cysto at that time.LG Patient sched for 06/14/25 in [place] office.LG [facility] Ambulatory Visit Summaryon 0 03-19-2025 Ambulatory Visit Summary Ambulatory Visit Summary KENNEDY KONG :1935 Visit Date:03/19/2025 Ambulatory Visit Instructions Your Diagnosis BPH with obstruction/lower urinary tract symptoms Urge incontinence Bladder cancer Your Care Team Attending Physician - LAUREL ESCOBEDO, TRINA [place] Primary Care Physician - LESA ESTRELLA DO This Is Your Medications List vibegron (Gemtesa 75 mg oral tablet) Contact prescribing physician if questions or concerns Non-Formulary Medication (super beta prostate) losartan (losartan 25 mg Tab) lubiprostone (lubiprostone 24 mcg Cap) ondansetron (ondansetron 8 mg Tab) rosuvastatin (rosuvastatin 40 mg Tab) tamsulosin (Flomax 0.4 mg Cap) ticagrelor (Brilinta (ticagrelor) 90 mg oral tablet) [Image Removed: STOP]Stop taking these medications mirabegron (Myrbetriq 50 mg oral tablet, extended release) Procedures Performed Radiation therapy care (03/02/2024), TURBT - Transurethral resection of bladder tumor (12/05/2023), Endoscopic destruction of bladder tumor by laser (12/13/2020), TURBT - Transurethral resection of bladder tumor (05/26/2020), Hydrocelectomy (2001), Cardiac catheterization, Cataract, colon resection, colonoscopy. Discharge Vitals Temperature (Oral) 36.7 ???C Heart Rate (Peripheral) 72 Respiratory Rate 18 Blood Pressure 106/56 Height 179 cm Height 70 in Weight 86.9 kg Weight 191.581 lb BMI 27.12 What to do next Scheduled Follow-Up Appointments Saturday 8:30 AM EDT With: WILY CHOI, Kylei Restrepo Where: [facility] [place] [id number]- Medications What How Much When Instructions New vibegron (Gemtesa 75 mg oral tablet) 1 Tablets By Mouth Every day Duration: 30 Days Refills: 11 Pickup at [facility]/pharmacy #[id number] Unchanged losartan (losartan 25 mg Tab) TAKE 1 TABLET BY MOUTH EVERY DAY Contact prescribing physician if questions or concerns Unchanged lubiprostone (lubiprostone 24 mcg Cap) TAKE 1 CAPSULE BY MOUTH TWICE A DAY FOR 7 DAYS Contact prescribing physician if questions or concerns Unchanged Non-Formulary Medication (super beta prostate) See instructions Contact prescribing physician if questions or concerns [...] physician if questions or concerns Pharmacy Information [facility]/pharmacy #[id number]: [address] [place], [place] [id number] [phone] What How Much When Comments Stop Taking mirabegron (Myrbetriq 50 mg oral tablet, extended release) 1 Tablets By Mouth Every day Allergies No Known Allergies Problems Ongoing - Any problem that you are currently receiving treatment for. Bladder cancer BMI 24.0-24.9, adult BPH with obstruction/lower urinary tract symptoms Chronic kidney disease Chronic venous insufficiency Coronary artery disease History of ulcerative colitis Hydrocele Hyperlipidemia Lumbar spondylosis Myocardial infarct Osteoarthritis of right hip Recurrent bladder papillary carcinoma Renal cyst Right hip pain Trigeminal neuralgia of right side of face Urge incontinence UTI (urinary tract infection) Historical - Any problem that you are no longer receiving treatment for. colon ca resection hydrocele Patient Survey You may receive a survey via text or e-mail asking about your office visit. Please share your experience with us by completing your survey. We appreciate your feedback and thank you for choosing us for your care. [facility] Urology Office/Clinic Noteon 03-19-2025 Urology Office/Clinic Note Urology Office/Clinic Note Chief Complaint incontinence HPI Staff Dx: recurrent bladder papillary carcinoma, BPH with obstruction/LUTS, hydrocele. Pt states he started wearing depends about 4-5 mths ago. He only voids a small amount when he gets to restroom, most of the time it is leaking into briefs. Pt states he does have urge to go, but he doesn't have much control to hold it/make it to the bathroom in time. This is very bothersome. Review of Systems PHQ Score Initial Depression Screen Score: 0 SCORE No fever, chills, malaise, myalgia. No dysuria. No blood in urine or stool. No change in urgency/frequency, straining, stream changes. No discharge, odor, or change in color of urine. No perineal pain/pressure, scrotal pain, or suprapubic pain. Physical Exam Vitals & Measurements T: 36.7 ???C(Oral) HR: 72(Peripheral) RR: 18 BP: 106/56 HT: 70 in HT: 179 cm WT: 86.9 kg WT: 191.581 lb BMI: 27.12 General: nontoxic, NAD Mouth: moist mucosa Lungs: normal respiratory effort Cardio: regular rate, good distal perfusion Abdomen: nondistended Neurologic: Grossly normal Skin: No rashes or suspicious lesions Assessment/Plan 1. 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 UA neg PVR today 28ml Pt never filled Myrbetriq when prescribed Summer 2023. I doubled checked with [facility]. This was likely d/t cost (>$400). Despite it being documented at last few ov's that he's taking it, he in fact is not. However he is not a good candidate for anticholinergic d/t severe bowel issues including strictures, constipation. Therefore we discussed trial Gemtesa. [facility]d [facility]d [facility] Risks/benefits/side effects discussed. If cost-prohibitive, I did briefly discuss hyperbaric oxygen therapy. Pt does drive himself and would be willing to consider this at [facility]. Would need to discuss w PRW. Ordered: vibegron, 75 mg = 1 tab(s), Oral, Daily, # 90 tab(s), Refills(s) 3, Pharmacy: [facility], 179, cm, 03/19/25 8:56:00 EDT, Height/Length Dosing, 86.9, kg, 03/19/25 8:56:00 EDT, Weight Dosing 62522 Measure Post Void residual urine and/or bladder capacity by US- non-imaging Body Mass Index (BMI) documented 3008F Current tobacco non-user 1036F Depression Screening Negative 3352F E&M of Est. Patient Moderate 30-39 Min 79956 Influenza immunization status assessed 1030F Medication list documented in medical record 1159F Most recent diastolic blood pressure <80 mm Hg 3078F Patient screen for fall risk: no falls in last year or 1 fall with no injury in last year 1101F Review of all meds by a prescribing practitioner or clinical pharmacist documented in EHR 1160F Systolic BP <130 mm Hg (Most Recent) 3074F 2. Bladder cancer (C67.9: Malignant neoplasm of bladder, unspecified) Originally [...] invasion identified. No definitive lymphovascular invasion noted. [facility] ER visit 12/14/23 due to gross hematuria, pain, and fever. Ucx - >100k E coli and >100k Klebsiella pneumoniae. Pt's catheter was changed and was discharged with Keflex x7 days. Catheter removed 12/16/23. S/p cysto/UD 06/29/24 - indurated thick urethral bulbar stricture, no evidence of classic papillary bladder tumors, two areas that are minimally raised and erythematous on the R wall, 1 in the mid R wall and the other in the back R wall. Both of these areas are 1cm or less CT AP 12/17/23 - neg for mets. Completed 5 weekly doses of Cisplatin with radiation 01/20/24 - 02/26/24. Radiation completed 01/20/24 - 03/02/24. Last saw Dr. Chaparro 07/06/24, plan was RTC in coordination with Dr. Grajeda with labs and scans to follow. Dr. Chaparro also referred pt to Dr. Heath at [facility] for possible bowel strictures. Pt saw Dr. Grajeda 07/01/24 who reports to continue surveillance cystos with Dr. Dietrich (due in Oct) and pt to complete scans in 3 mon (more content not included)... [facility] Comment on above: Result Comment: Elec tronically Signed By: TRINA BARRAGAN PA-C\.br\Date and Time Signed: 03/19/25 13:56 EDT US venous duplex LE on US venous duplex [facility] [place] [address] Ultrasound Report Signed Patient: Kennedy Kong MR#: [id number] : 1935 Acct:[id number] Age/Sex: 89 / M ADM Date: 03/16/25 Loc: Room: Type: [facility] Attending Dr: Theodora Love APRN Ordering Provider: Theodora Love APRN Date of Service: 03/16/25 US/US venous duplex LE LT: LLE EDEMA Copies to: Theodora Love APRN LEFT LOWER EXTREMITY VENOUS DUPLEX [...] Smith M.D. 03/17/2025 10:29 AM Dictation Location: [place] [address] Tech: Sandee Womack Transcribed By: LIZ 03/17/25 1029 Dictated By: Randal Smith MD 03/17/25 1028 Signed By: 03/17/25 1029 [facility] CNOVSPon 01-29-2025 CNOVSP Visit (SP) Office ([place]) KENNEDY KONG ([id number]) 1935 M Date Time Provider Department 01/29/25 9:00 AM EUGENE CHAPARRO During your visit today, we recorded the following information about you: Temperature Pulse Respiration Blood pressure 97.1 degrees 69/minute 18/minute 138/68 Weight 85.5 kg Eugene Chaparro MD 01/29/2025 12:52 PM Signed NAME: Kennedy Kong CLINIC NO.: [id number] DATE OF SERVICE: January 29, 2025 (Deann) Some elements in this clinic note that are critical to medical decision making have been carefully reviewed and included from a prior clinic note dated: October 28, 2024 (Deann) Referring Provider: Dr. Leigh Grajeda Additional Clinicians involved in Kennedy Kong's care: Lesa Estrella, Avel Heath, Kylie Dietrich CC: Follow up for treatment. DIAGNOSIS: High grade muscle invasive bladder cancer ASSESSMENT: 89 year old man with a history of [...] December 05, 2023, was identified as having sibe-xzmvl-auvzrv invasive papillary bladder cancer and has been referred to Radiation oncology and subsequently to me for an opinion regarding chemotherapy. 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 He would likely tolerate low dose weekly cisplatin for radiosensitizing given appropriate supportive therapy. Will Coordinate with Dr. Grajeda. CT done today January 29, 2025 show resolution of lung nodule and no evidence of recurrence. PLAN: Triage to call with results of today's CT Follow up with Dr. Dietrich as scheduled CT CAP with labs in 3 months RTC 1 week after - HPI: CASE HISTORY: Reverse Chronological Order 01/29/2025 - CT CAP: Final reading in process Chest: 1. There has been interval resolution of the previously identified 1.1 cm right upper lobe nodule. Additional subcentimeter nodularity adjacent to this region along the right major fissure appears less conspicuous. 2. Additional subcentimeter left-sided pulmonary nodules are unchanged. 3. No substantial intrathoracic adenopathy is identified. A/P: 1. Stable postoperative appearance to the abdomen and pelvis, without evidence for metastatic disease. 2. Circumferential wall thickening involving the distal sigmoid/rectum again the basis of prior radiation therapy, stable in appearance. 3. Wall thickening involving the urinary bladder, more prominent along the right lateral aspect is stable, also likely posttreatment related. 11/23/2024 - Cystoscopy: Dr. Dietrich Findings: Recurrent bulbar urethral stricture No new barrera bladder tumors Erythematous slightly raised mucosa along the back wall and dome Cytology: Urinary bladder washings: Groups of atypical urothelial cells noted Acute inflammation 10/20/2024 - PET/CT: Circumferential bladder wall thickening with perivesical and perirectal fat stranding likely representing postradiation changes. Nonavid right upper and middle lobe lung nodules, recommend follow-up with CT. 09/30/2024 - CT CAP: Chest: New 1.1 cm right upper lobe nodule and 0.6 cm right middle lobe nodule. Consider PET CT to assess the dominant pulmonary nodule, otherwise attention on follow-up is recommended. A/P: No metastatic disease in the abdomen or pelvis. 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 06/29/2024 - Cystoscopy: Dr. Dietrich Indurated thick bulbar urethral stricture No evidence of classic papillary bladder tumors 2 area that are minimally raised and erythematous on the right wall. 1 in the mid right wall and the other in the back right wall. Both of these areas are 1cm or less. 01/20/2024-03/02/2024 - Radiation to bladder 01/20/2024-02/19/2024 - Weekly Cisplatin 20 mg/m2 started with radiation (total dose of Cisplatin was 400mg/m2) 01/08/2024 - CT Chest: Subcentimeter noncalcified and partially calcified nodular opacities measuring up to 5 mm. Consider interval follow-up. Findings compatible with previous granulomatous disease. 12/17/2023 - CT A/P: Enhancing urothelial bladder lesion concerning for malignancy. No enlarged abdominal or pelvic lymph nodes. Other nonemergent findings. 0 (more content not included)... Normal [facility] 01-29-2025 [facility] Telephone ([facility]) KENNEDY KONG ([id number]) 1935 [place] Date Time Provider Department 01/29/25 EUGENE CHAPARRO During your visit today, we recorded the following information about you: Lali Byrd 01/29/2025 9:22 AM Signed Please call patient with today's ct scans. Thank you Joanie Caraballo, RN 01/29/2025 12:54 PM Signed Eugene Chaparro MD P [facility] Triage Pool Miroslava - scans were clear! o Chest: ? 1. There has been interval resolution of the previously identified 1.1 cm right upper lobe nodule. Additional subcentimeter nodularity adjacent to this region along the right major fissure appears less conspicuous. ? 2. Additional subcentimeter left-sided pulmonary nodules are unchanged. ? 3. No substantial intrathoracic adenopathy is identified. o A/P: ? 1. Stable postoperative appearance to the abdomen and pelvis, without evidence for metastatic disease. ? 2. Circumferential wall thickening involving the distal sigmoid/rectum again the basis of prior radiation therapy, stable in appearance. ? 3. Wall thickening involving the urinary bladder, more prominent along the right lateral aspect is stable, also likely posttreatment related. Vm left with above message of clear scans. Encouraged to call with any questions/concerns. Joanie Caraballo RN Allergies As of Date: 01/29/2025 Noted Allergy Reaction AMOXICILLIN 04/28/2013 14 - Other: See Comments Comments: Pt gets sores in mouth Date Reviewed: 01/29/2025 Reviewed by: Joselyn Dickey MA - Fully Assessed Reason for Visit: Results [95] Prescriptions as of 01/29/2025 - iv contrast (will be provided with radiology [...] in the CT contrast administration guidelines link. - enteric contrast (will be provided with radiology test) For CT CHESTABD/PEL W IVCON Routine order Administer, As Directed One Time Only, via Oral, Rectal, both Oral and Rectal, Enteric Tube, Stoma or Indwelling Catheter, Enteric Contrast as designated per enteric contrast guidelines - iv contrast (will be provided with radiology [...] in the CT contrast administration guidelines link. - enteric contrast (will be provided with radiology test) For CT CHESTABD/PEL W IVCON Routine order Administer, As Directed One Time Only, via Oral, Rectal, both Oral and Rectal, Enteric Tube, Stoma or Indwelling Catheter, Enteric Contrast as designated per enteric contrast guidelines - iv contrast (will be provided with radiology [...] in the CT contrast administration guidelines link. - enteric contrast (will be provided with radiology test) For CT CHESTABD/PEL W IVCON Routine order Administer, As Directed One Time Only, via Oral, Rectal, both Oral and Rectal, Enteric Tube, Stoma or Indwelling Catheter, Enteric Contrast as designated per enteric contrast guidelines - Catheter ([facility] MALE EXTERNAL CATH) misc 1 Device once daily. - CARROLL CHEWABLE ASPIRIN 81 mg chewable tablet CHEW 1 TABLET ONCE DAILY - carvedilol (COREG) 6.25 mg tablet Take 6.25 mg by mouth two times a day with meals. - clopidogrel (PLAVIX) 75 mg tablet Take 75 mg by mouth once daily. - rosuvastatin (CRESTOR) 40 mg tablet Take 40 mg by mouth once daily. - tamsulosin (FLOMAX) 0.4 mg Take 0.4 mg by mouth once daily. - Fish Oil-DHA-EPA 1,200-144-216 mg cap Take by mouth once daily. 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] 09/30/2019 Malignant neoplasm of trigone of urinary bladde*01/05/2024 Stage 3a chronic kidney disease (HCC) [N18.31] 10/29/2024 Encounter Status:Closed by JOANIE CARABALLO on 01/29/25 Normal [facility] CT ABD/PEL W IVCONon 025 CT ABD/PEL W IVCON * * *Final Report* * * DATE OF EXAM: Jan 29 2025 8:52AM [facility] 0530 - CT ABD/PEL W IVCON / PROCEDURE REASON: Malignant neoplasm of urinary bladder, unspecified site (HCC) * * * * Physician Interpretation * * * * RESULT: EXAMINATION: CT ABDOMEN AND PELVIS WITH IV CONTRAST CLINICAL HISTORY: Bladder carcinoma TECHNIQUE: CT of the abdomen and pelvis was performed using standard technique, scanning from just above the dome of the diaphragm to the symphysis pubis. MQ: CTAP_3 Contrast: IV: 100 ml of Omnipaque 350 Oral: 500 ml of Omni 240 10-25ml diluted with water CT Radiation dose: Integrated Dose-length product (DLP) for this visit = 945 mGy*cm. CT Dose Reduction Employed: Automated exposure control (AEC) COMPARISON: 09/30/2024. RESULT: Liver: Bilobar hepatic cysts, unchanged. No new hepatic lesions are appreciated. Spleen: No splenomegaly. Scattered calcified granuloma to are noted. No mass. Pancreas: No mass or ductal dilation. Adrenal glands: No mass. Kidneys: No enhancing mass or hydronephrosis. Left parapelvic renal cysts are again appreciated, stable. GI Tract: No bowel wall thickening or dilation. Postoperative changes at the rectosigmoid junction, mild, diffuse distal sigmoid/rectal wall thickening is again appreciated, unchanged. Lymph nodes: No substantial abdominal or pelvic lymphadenopathy is appreciated. Surgical clips within the retroperitoneum are again appreciated, likely on the basis of prior lymph node dissection. Mesentery/Peritoneum: No ascites or mass. Retroperitoneum: No mass. Pelvis: No free fluid or pelvic mass. Mild, diffuse bladder wall thickening is appreciated, more prominent along the right lateral aspect, stable in appearance. No substantial inguinal adenopathy. Bones/Soft Tissues: Degenerative change within the lumbar spine. No osseous destructive process. Lower Thorax: A CT examination of the chest has been performed concurrently and will be dictated separately. Bindery Machine Setter/Set Up Operator (topogram) images: No additional findings. IMPRESSION: 1. Stable postoperative appearance to the abdomen and pelvis, without evidence for metastatic disease. 2. Circumferential wall thickening involving the distal sigmoid/rectum again the basis of prior radiation therapy, stable in appearance. 3. Wall thickening involving the urinary bladder, more prominent along the right lateral aspect is stable, also likely posttreatment related. Transcribe Date/Time: Jan 29 2025 11:27A Dictated by: FILEMON JOLLY MD This examination was interpreted and the report reviewed and electronically signed by: FILEMON JOLLY MD on Jan 29 2025 12:32PM EST Thank you for allowing us to participate in the care of your patient. Should there be any questions regarding this interpretation, please call [phone]. If you are unable to reach us at the number above, please feel free to contact [facility] at [phone]. [id number] N Normal [facility] CT Abdomen and Pelvis W cont rast Jassi 01-29-2025 IMPRESSION: 1. Stable postoperative appearance to the abdomen and pelvis, without evidence for metastatic disease. 2. Circumferential wall thickening involving the distal sigmoid/rectum again the basis of prior radiation therapy, stable in appearance. 3. Wall thickening involving the urinary bladder, more prominent along the right lateral aspect is stable, also likely posttreatment related. Transcribe Date/Time: Jan 29 2025 11:27A Dictated by: FILEMON JOLLY MD This examination was interpreted and the report reviewed and electronically signed by: FILEOMN JOLLY MD on Jan 29 2025 12:32PM EST Thank you for allowing us to participate in the care of your patient. Should there be any questions regarding this interpretation, please call [phone]. If you are unable to reach us at the number above, please feel free to contact [facility] at [phone]. DIVISION OF RADIOLOGY * * *Final Report* * * DATE OF EXAM: Jan 29 2025 8:52AM [facility] 0530 - CT ABD/PEL W IVCON / PROCEDURE REASON: Malignant neoplasm of urinary bladder, unspecified site (HCC) * * * * Physician Interpretation * * * * RESULT: EXAMINATION: CT ABDOMEN AND PELVIS WITH IV CONTRAST CLINICAL HISTORY: Bladder carcinoma TECHNIQUE: CT of the abdomen and pelvis was performed using standard technique, scanning from just above the dome of the diaphragm to the symphysis pubis. MQ: CTAP_3 Contrast: IV: 100 ml of Omnipaque 350 Oral: 500 ml of Omni 240 10-25ml diluted with water CT Radiation dose: Integrated Dose-length product (DLP) for this visit = 945 mGy*cm. CT Dose Reduction Employed: Automated exposure control (AEC) COMPARISON: 09/30/2024. RESULT: Liver: Bilobar hepatic cysts, unchanged. No new hepatic lesions are appreciated. Spleen: No splenomegaly. Scattered calcified granuloma to are noted. No mass. Pancreas: No mass or ductal dilation. Adrenal glands: No mass. Kidneys: No enhancing mass or hydronephrosis. Left parapelvic renal cysts are again appreciated, stable. GI Tract: No bowel wall thickening or dilation. Postoperative changes at the rectosigmoid junction, mild, diffuse distal sigmoid/rectal wall thickening is again appreciated, unchanged. Lymph nodes: No substantial abdominal or pelvic lymphadenopathy is appreciated. Surgical clips within the retroperitoneum are again appreciated, likely on the basis of prior lymph node dissection. Mesentery/Peritoneum: No ascites or mass. Retroperitoneum: No mass. Pelvis: No free fluid or pelvic mass. Mild, diffuse bladder wall thickening is appreciated, more prominent along the right lateral aspect, stable in appearance. No substantial inguinal adenopathy. Bones/Soft Tissues: Degenerative change within the lumbar spine. No osseous destructive process. Lower Thorax: A CT examination of the chest has been performed concurrently and will be dictated separately. Bindery Machine Setter/Set Up Operator (topogram) images: No additional findings. DIVISION OF RADIOLOGY Provider, [facility] - 01/29/2025 * * *Final Report* * * DATE OF EXAM: Jan 29 2025 8:52AM [facility] 0530 - CT ABD/PEL W IVCON / PROCEDURE REASON: Malignant neoplasm of urinary bladder, unspecified site (HCC) * * * * Physician Interpretation * * * * RESULT: EXAMINATION: CT ABDOMEN AND PELVIS WITH IV CONTRAST CLINICAL HISTORY: Bladder carcinoma TECHNIQUE: CT of the abdomen and pelvis was performed using standard technique, scanning from just above the dome of the diaphragm to the symphysis pubis. MQ: CTAP_3 Contrast: IV: 100 ml of Omnipaque 350 Oral: 500 ml of Omni 240 10-25ml diluted with water CT Radiation dose: Integrated Dose-length product (DLP) for this visit = 945 mGy*cm. CT Dose Reduction Employed: Automated exposure control (AEC) COMPARISON: 09/30/2024. RESULT: Liver: Bilobar hepatic cysts, unchanged. No new hepatic lesions are appreciated. Spleen: No splenomegaly. Scattered calcified granuloma to are noted. No mass. Pancreas: No mass or ductal dilation. Adrenal glands: No mass. Kidneys: No enhancing mass or hydronephrosis. Left parapelvic renal cysts are again appreciated, stable. GI Tract: No bowel wall thickening or dilation. Postoperative changes at the rectosigmoid junction, mild, diffuse distal sigmoid/rectal wall thickening is again appreciated, unchanged. Lymph nodes: No substantial abdominal or pelvic lymphadenopathy is appreciated. Surgical clips within the retroperitoneum are again appreciated, likely on the basis of prior lymph node dissection. Mesentery/Peritoneum: No ascites or mass. Retroperitoneum: No mass. Pelvis: No free fluid or pelvic mass. Mild, diffuse bladder wall thickening is appreciated, more prominent along the right lateral aspect, stable in appearance. No substantial inguinal adenopathy. Bones/Soft Tissues: Degenerative change within the lumbar spine. No osseous destructive process. Lower Thorax: A CT examination of the chest has been performed concurrently and will be dictated separately. Bindery Machine Setter/Set Up Operator (topogram) images: No additional findings. IMPRESSION IMPRESSION: 1. Stable postoperative appearance to the abdomen and pelvis, without evidence for metastatic disease. 2. Circumferential wall thickening involving the distal sigmoid/rectum again the basis of prior radiation therapy, stable in appearance. 3. Wall thickening involving the urinary bladder, more prominent along the right lateral aspect is stable, also likely posttreatment related. Transcribe Date/Time: Jan 29 2025 11:27A Dictated by: FILEMON JOLLY MD This examination was interpreted and the report reviewed and electronically signed by: FILEMON JOLLY MD on Jan 29 2025 12:32PM EST Thank you for allowing us to participate in the care of your patient. Should there be any questions regarding this interpretation, please call [phone]. If you are unable to reach us at the number above, please feel free to contact [facility] at [phone]. [facility] CT Abdomen and Pelvis W cont rast IVOrdered By: [facility] Provider on 01-29-2025 [facility] CT CHEST W IVCONon CT CHEST W IVCON * * *Final Report* * * DATE OF EXAM: Jan 29 2025 8:52AM [facility] 0539 - CT CHEST W IVCON / PROCEDURE REASON: multiple diagnoses * * * * Physician Interpretation * * * * RESULT: EXAMINATION: CHEST CT WITH CONTRAST CLINICAL HISTORY: Bladder carcinoma Technique: Spiral CT acquisition of the chest from the thoracic inlet to the upper abdomen following IV contrast. MQ: CTCW_6 Contrast: 100 mL Omnipaque [address] Radiation dose: Integrated Dose-length product (DLP) for this visit = 945 mGy*cm CT Dose Reduction Employed: Automated exposure control (AEC) Comparison: CT chest 09/30/2024 RESULT: Limitations: None. Lines, tubes, and devices: None. Lung parenchyma , airways, and pleural space: Linear atelectasis/scarring at the right lung base is again appreciated. The trachea and major airways appear patent. No consolidative process or pleural effusion is appreciated. Subcentimeter nodularity along the right major fissure, image 113, series 4 appears less conspicuous. The previously identified newly apparent 1.1 cm subpleural right upper lobe nodule is no longer appreciated. 3 mm left upper lobe nodule, image 65, series 4, stable. 5 mm left lower lobe nodule, image 163, series 4 is stable. Punctate calcified granuloma along the left major fissure, image 135, series 4, stable. 5 mm nodule along the left major fissure may be partially calcified, image 126, series 4, stable. No suspicious enlarging nodule. Lower neck, lymph nodes, and mediastinum: The visualized thyroid gland is stable. No substantial supraclavicular or axillary lymphadenopathy is identified. No substantial mediastinal or hilar adenopathy is identified. Heart, pericardium, and thoracic vessels: The thoracic aorta is normal in caliber. No substantial pericardial effusion is appreciated. Coronary artery calcification is noted. Degenerative change within the thoracic spine. No osseous destructive process. Upper Abdomen: A CT examination of the abdomen has been performed concurrently and will be dictated separately. Bindery Machine Setter/Set Up Operator (topogram) images: No additional findings. IMPRESSION: 1. There has been interval resolution of the previously identified 1.1 cm right upper lobe nodule. Additional subcentimeter nodularity adjacent to this region along the right major fissure appears less conspicuous. 2. Additional subcentimeter left-sided pulmonary nodules are unchanged. 3. No substantial intrathoracic adenopathy is identified. Transcribe Date/Time: Jan 29 2025 11:36A Dictated by: FILEMON JOLLY MD This examination was interpreted and the report reviewed and electronically signed by: FILEMON JOLLY MD on Jan 29 2025 12:32PM EST Thank you for allowing us to participate in the care of your patient. Should there be any questions regarding this interpretation, please call [phone]. If you are unable to reach us at the number above, please feel free to [facility] at [phone]. [id number] N Normal [facility] CT Chest W contrast Jassi IMPRESSION: 1. There has been interval resolution of the previously identified 1.1 cm right upper lobe nodule. Additional subcentimeter nodularity adjacent to this region along the right major fissure appears less conspicuous. 2. Additional subcentimeter left-sided pulmonary nodules are unchanged. 3. No substantial intrathoracic adenopathy is identified. Transcribe Date/Time: Jan 29 2025 11:36A Dictated by: FILEMON JOLLY MD This examination was interpreted and the report reviewed and electronically signed by: FILEMON JOLLY MD on Jan 29 2025 12:32PM EST Thank you for allowing us to participate in the care of your patient. Should there be any questions regarding this interpretation, please call [phone]. If you are unable to reach us at the number above, please feel free to contact [facility] at [phone]. DIVISION OF RADIOLOGY * * *Final Report* * * DATE OF EXAM: Jan 29 2025 8:52AM [facility] 0539 - CT CHEST W IVCON / PROCEDURE REASON: multiple diagnoses * * * * Physician Interpretation * * * * RESULT: EXAMINATION: CHEST CT WITH CONTRAST CLINICAL HISTORY: Bladder carcinoma Technique: Spiral CT acquisition of the chest from the thoracic inlet to the upper abdomen following IV contrast. MQ: CTCW_6 Contrast: 100 mL Omnipaque [address] Radiation dose: Integrated Dose-length product (DLP) for this visit = 945 mGy*cm CT Dose Reduction Employed: Automated exposure control (AEC) Comparison: CT chest 09/30/2024 RESULT: Limitations: None. Lines, tubes, and devices: None. Lung parenchyma , airways, and pleural space: Linear atelectasis/scarring at the right lung base is again appreciated. The trachea and major airways appear patent. No consolidative process or pleural effusion is appreciated. Subcentimeter nodularity along the right major fissure, image 113, series 4 appears less conspicuous. The previously identified newly apparent 1.1 cm subpleural right upper lobe nodule is no longer appreciated. 3 mm left upper lobe nodule, image 65, series 4, stable. 5 mm left lower lobe nodule, image 163, series 4 is stable. Punctate calcified granuloma along the left major fissure, image 135, series 4, stable. 5 mm nodule along the left major fissure may be partially calcified, image 126, series 4, stable. No suspicious enlarging nodule. Lower neck, lymph nodes, and mediastinum: The visualized thyroid gland is stable. No substantial supraclavicular or axillary lymphadenopathy is identified. No substantial mediastinal or hilar adenopathy is identified. Heart, pericardium, and thoracic vessels: The thoracic aorta is normal in caliber. No substantial pericardial effusion is appreciated. Coronary artery calcification is noted. Degenerative change within the thoracic spine. No osseous destructive process. Upper Abdomen: A CT examination of the abdomen has been performed concurrently and will be dictated separately. Bindery Machine Setter/Set Up Operator (topogram) images: No additional findings. DIVISION OF RADIOLOGY Provider, [facility] - 01/29/2025 * * *Final Report* * * DATE OF EXAM: Jan 29 2025 8:52AM [facility] 0539 - CT CHEST W IVCON / PROCEDURE REASON: multiple diagnoses * * * * Physician Interpretation * * * * RESULT: EXAMINATION: CHEST CT WITH CONTRAST CLINICAL HISTORY: Bladder carcinoma Technique: Spiral CT acquisition of the chest from the thoracic inlet to the upper abdomen following IV contrast. MQ: CTCW_6 Contrast: 100 mL Omnipaque [address] Radiation dose: Integrated Dose-length product (DLP) for this visit = 945 mGy*cm CT Dose Reduction Employed: Automated exposure control (AEC) Comparison: CT chest 09/30/2024 RESULT: Limitations: None. Lines, tubes, and devices: None. Lung parenchyma , airways, and pleural space: Linear atelectasis/scarring at the right lung base is again appreciated. The trachea and major airways appear patent. No consolidative process or pleural effusion is appreciated. Subcentimeter nodularity along the right major fissure, image 113, series 4 appears less conspicuous. The previously identified newly apparent 1.1 cm subpleural right upper lobe nodule is no longer appreciated. 3 mm left upper lobe nodule, image 65, series 4, stable. 5 mm left lower lobe nodule, image 163, series 4 is stable. Punctate calcified granuloma along the left major fissure, image 135, series 4, stable. 5 mm nodule along the left major fissure may be partially calcified, image 126, series 4, stable. No suspicious enlarging nodule. Lower neck, lymph nodes, and mediastinum: The visualized thyroid gland is stable. No substantial supraclavicular or axillary lymphadenopathy is identified. No substantial mediastinal or hilar adenopathy is identified. Heart, pericardium, and thoracic vessels: The thoracic aorta is normal in caliber. No substantial pericardial effusion is appreciated. Coronary artery calcification is noted. Degenerative change within the thoracic spine. No osseous destructive process. Upper Abdomen: A CT examination of the abdomen has been performed concurrently and will be dictated separately. Bindery Machine Setter/Set Up Operator (topogram) images: No additional findings. IMPRESSION IMPRESSION: 1. There has been interval resolution of the previously identified 1.1 cm right upper lobe nodule. Additional subcentimeter nodularity adjacent to this region along the right major fissure appears less conspicuous. 2. Additional subcentimeter left-sided pulmonary nodules are unchanged. 3. No substantial intrathoracic adenopathy is identified. Transcribe Date/Time: Jan 29 2025 11:36A Dictated by: FILEMON JOLLY MD This examination was interpreted and the report reviewed and electronically signed by: FILEMON JOLLY MD on Jan 29 2025 12:32PM EST Thank you for allowing us to participate in the care of your patient. Should there be any questions regarding this interpretation, please call [phone]. If you are unable to reach us at the number above, please feel free to contact [facility] eRadiology at [phone]. [facility] No Panel Informationon 01-29 Radiology Study observation (narrative) [facility] Basophils Auto (Bld) [#/Vol] on 01-18-2025 Basophils (Bld) [#/Vol] Automated basoph il count <0.11 [facility] Basophils/100 WBC Auto (Bld) on 01-18-2025 Basophils/100 WBC (Bld) Automated basophil % [facility] Blood manual differential co mment interpretation narrativeon 01-18-2025 Manual differential comment Joshua (Bld) [Interp] Blood manual differential comment interpretation narrative [facility] CBC W Auto Differential pane l (Bld)on 01-18-2025 Basophils (Bld) [#/Vol] 10*3/uL Normal <0.11 [facility] Comment on above: Order Comment: Speci men Type: BLOOD SPECIMEN Ordering Facility: [facility] Address: [address] [place] [address] Performed By: #### 5 7021-8 #### [facility] CLIA [id number] [address] [place] [address] 12472 Basophils/100 WBC (Bld) 0.4 % Normal [facility] Comment on above: Order Comment: Speci men Type: BLOOD SPECIMEN Ordering Facility: [facility] Address: [address] [place] [address] Performed By: #### 5 7021-8 #### [facility] CLIA [id number] [address] [place] [address] 22390 Differential cell count method Nom (Bld) Auto Normal [facility] Comment on above: Order Comment: Speci men Type: BLOOD SPECIMEN Ordering Facility: [facility] Address: [address] [place] [address] Performed By: #### 5 7021-8 #### [facility] CLIA [id number] [address] [place] [address] 85865 Eosinophils (Bld) [#/Vol] 0.24 10*3/uL Normal <0.46 [facility] Comment on above: Order Comment: Speci men Type: BLOOD SPECIMEN Ordering Facility: [facility] Address: [address] [place] [address] Performed By: #### 5 7021-8 #### [facility] CLIA [id number] [address] [place] [address] Eosinophils/100 WBC (Bld) 4.8 % Normal [facility] Comment on above: Order Comment: Speci men Type: BLOOD SPECIMEN Ordering Facility: [facility] Address: [address] [place] [address] Performed By: #### 5 7021-8 #### [facility] CLIA [id number] [address] [place] [address] 14977 Erythrocyte distribution width (RBC) [Ratio] 13.4 % Normal 11.5-15.0 [facility] Comment on above: Order Comment: Speci men Type: BLOOD SPECIMEN Ordering Facility: [facility] Address: [address] [place] [address] Performed By: #### 5 7021-8 #### [facility] CLIA [id number] [address] [place] [address] 25704 Hematocrit (Bld) [Volume fraction] 38.5 % Low 39.0-51.0 [facility] Comment on above: Order Comment: Speci men Type: BLOOD SPECIMEN Ordering Facility: [facility] Address: [address] [place] [address] Performed By: #### 5 7021-8 #### [facility] CLIA [id number] [address] [place] [address] 82639 Hemoglobin (Bld) [Mass/Vol] 12.5 g/dL Low 13.0-17.0 [facility] Comment on above: Order Comment: Speci men Type: BLOOD SPECIMEN Ordering Facility: [facility] Address: [address] [place] [address] Performed By: #### 5 7021-8 #### [facility] CLIA [id number] [address] [place] [address] 28204 Immature granulocytes (Bld) [#/Vol] 10*3/uL Normal <0.10 [facility] Comment on above: Order Comment: Speci men Type: BLOOD SPECIMEN Ordering Facility: [facility] Address: [address] [place] [address] Performed By: #### 5 7021-8 #### [facility] CLIA [id number] [address] [place] [address] 48968 Immature granulocytes/100 WBC (Bld) 0.2 % Normal [facility] Comment on above: Order Comment: Speci men Type: BLOOD SPECIMEN Ordering Facility: [facility] Address: [address] [place] [address] Performed By: #### 5 7021-8 #### [facility] CLIA [id number] [address] [place] [address] 38992 Lymphocytes (Bld) [#/Vol] 1.33 10*3/uL Normal 1.00-4.00 [facility] Comment on above: Order Comment: Speci men Type: BLOOD SPECIMEN Ordering Facility: [facility] Address: [address] [place] [address] Performed By: #### 5 7021-8 #### [facility] CLIA [id number] [address] [place] [address] 99755 Lymphocytes/100 WBC (Bld) 26.8 % Normal [facility] Comment on above: Order Comment: Speci men Type: BLOOD SPECIMEN Ordering Facility: [facility] Address: [address] [place] [address] Performed By: #### 5 7021-8 #### [facility] CLIA [id number] [address] [place] [address] 61046 MCH (RBC) [Entitic mass] 30.4 pg Normal 26.0-34.0 [facility] Comment on above: Order Comment: Speci men Type: BLOOD SPECIMEN Ordering Facility: [facility] Address: [address] [place] [address] Performed By: #### 5 7021-8 #### [facility] CLIA [id number] [address] [place] [address] 55892 MCHC (RBC) [Mass/Vol] 32.5 g/dL Normal 30.5-36.0 [facility] Comment on above: Order Comment: Speci men Type: BLOOD SPECIMEN Ordering Facility: [facility] Address: [address] [place] [address] Performed By: #### 5 7021-8 #### [facility] CLIA [id number] [address] [place] [address] 53614 MCV (RBC) [Entitic vol] 93.7 fL Normal 80.0-100.0 [facility] Comment on above: Order Comment: Speci men Type: BLOOD SPECIMEN Ordering Facility: [facility] Address: [address] [place] [address] Performed By: #### 5 7021-8 #### [facility] CLIA [id number] [address] [place] [address] 64501 Monocytes (Bld) [#/Vol] 0.78 10*3/uL Normal <0.87 [facility] Comment on above: Order Comment: Speci men Type: BLOOD SPECIMEN Ordering Facility: [facility] Address: [address] [place] [address] Performed By: #### 5 7021-8 #### [facility] CLIA [id number] [address] [place] [address] 08224 Monocytes/100 WBC (Bld) 15.7 % Normal [facility] Comment on above: Order Comment: Speci men Type: BLOOD SPECIMEN Ordering Facility: [facility] Address: [address] [place] [address] Performed By: #### 5 7021-8 #### [facility] CLIA [id number] [address] [place] [address] 27462 Neutrophils (Bld) [#/Vol] 2.58 10*3/uL Normal 1.45-7.50 [facility] Comment on above: Order Comment: Speci men Type: BLOOD SPECIMEN Ordering Facility: [facility] Address: [address] [place] [address]93 Performed By: #### 5 7021-8 #### [facility] CLIA [id number] [address] [place] [address] 36648 Neutrophils/100 WBC (Bld) 52.1 % Normal [facility] Comment on above: Order Comment: Speci men Type: BLOOD SPECIMEN Ordering Facility: [facility] Address: [address] [place] [address] Performed By: #### 5 7021-8 #### [facility] CLIA [id number] [address] [place] [address] Nucleated RBC (Bld) [#/Vol] 10*3/uL Normal <0.01 [facility] Comment on above: Order Comment: Speci men Type: BLOOD SPECIMEN Ordering Facility: [facility] Address: [address] [place] [address] Performed By: #### 5 7021-8 #### [facility] CLIA [id number] [address] [place] [address] Nucleated RBC/100 WBC (Bld) [Ratio] 0.0 /100 WBC Normal [facility] Comment on above: Order Comment: Speci men Type: BLOOD SPECIMEN Ordering Facility: [facility] Address: [address] [place] [address] Performed By: #### 5 7021-8 #### [facility] CLIA [id number] [address] [place] [address] Platelet mean volume (Bld) [Entitic vol] 8.4 fL Low 9.0-12.7 [facility] Comment on above: Order Comment: Speci men Type: BLOOD SPECIMEN Ordering Facility: [facility] Address: [address] [place] [address] Performed By: #### 5 7021-8 #### [facility] CLIA [id number] [address] [place] [address] Platelets (Bld) [#/Vol] 194 10*3/uL Normal 150-400 [facility] Comment on above: Order Comment: Speci men Type: BLOOD SPECIMEN Ordering Facility: [facility] Address: [address] [place] [address] Performed By: #### 5 7021-8 #### [facility] CLIA [id number] [address] [place] [address] RBC (Bld) [#/Vol] 4.11 10*6/uL Low 4.20-6.00 [facility] Comment on above: Order Comment: Speci men Type: BLOOD SPECIMEN Ordering Facility: [facility] Address: [address] [place] [address] Performed By: #### 5 7021-8 #### [facility] CLIA [id number] [address] [place] [address] WBC (Bld) [#/Vol] 4.96 10*3/uL Normal 3.70-11.00 [facility] Comment on above: Order Comment: Speci men Type: BLOOD SPECIMEN Ordering Facility: [facility] Address: [address] [place] [address] Performed By: #### 5 7021-8 #### [facility] CLIA [id number] [address] [place] [address] Comprehensive metabolic 2000 panelon 01-18-2025 Albumin [Mass/Vol] 3.9 g/dL Normal 3.9-4.9 [facility] Comment on above: Order Comment: Speci men Type: BLOOD SPECIMENOrdering Facility: [facility] Address: [address] [place] [address] Performed By: #### 2 4323-8 ####[facility] [id number] [place] [address] ALP [Catalytic activity/Vol] 57 U/L Normal 38-113 [facility] Comment on above: Order Comment: Speci men Type: BLOOD SPECIMENOrdering Facility: [facility] Address: [address] [place] [address] Performed By: #### 2 4323-8 ####[facility] [id number] [place] [address] ALT [Catalytic activity/Vol] 18 U/L Normal 10-54 [facility] Comment on above: Order Comment: Speci men Type: BLOOD SPECIMENOrdering Facility: [facility] Address: [address] [place] [address] Performed By: #### 2 4323-8 ####[facility] [id number] [place] [address] Anion gap [Moles/Vol] 10 mmol/L Normal 8-15 [facility] Comment on above: Order Comment: Speci men Type: BLOOD SPECIMENOrdering Facility: [facility] Address: [address] [place] [address] Performed By: #### 2 4323-8 ####[facility] [id number] [place] [address] AST [Catalytic activity/Vol] 17 U/L Normal 14-40 [facility] Comment on above: Order Comment: Speci men Type: BLOOD SPECIMENOrdering Facility: [facility] Address: [address] [place] [address] Performed By: #### 2 4323-8 ####[facility] [id number] [place] [address] Bilirubin [Mass/Vol] 0.3 mg/dL Normal 0.2-1.3 [facility] Comment on above: Order Comment: Speci men Type: BLOOD SPECIMENOrdering Facility: [facility] Address: [address] [place] [address] Performed By: #### 2 4323-8 ####[facility] [id number] [place] [address] Calcium [Mass/Vol] 9.5 mg/dL Normal 8.5-10.2 [facility] Comment on above: Order Comment: Speci men Type: BLOOD SPECIMENOrdering Facility: [facility] Address: [address] [place] [address] Performed By: #### 2 4323-8 ####[facility] [id number] [place] [address] Chloride [Moles/Vol] 107 mmol/L Normal 98-107 [facility] Comment on above: Order Comment: Speci men Type: BLOOD SPECIMENOrdering Facility: [facility] Address: [address] [place], [place] [address] Performed By: #### 2 4323-8 ####[facility] [id number] [place] [address] CO2 [Moles/Vol] 23 mmol/L Normal 22-30 [facility] Comment on above: Order Comment: Speci men Type: BLOOD SPECIMENOrdering Facility: [facility] Address: [address] [place] [address] Performed By: #### 2 4323-8 ####[facility] [id number] [place] [address] Creatinine [Mass/Vol] 1.10 mg/dL Normal 0.73-1.22 [facility] Comment on above: Order Comment: Speci men Type: BLOOD SPECIMENOrdering Facility: [facility] Address: [address] [place] [address] Performed By: #### 2 4323-8 ####[facility] [id number] [place] [address] Creatinine and Glomerular filtration rate.predicted panel (S/P/Bld) 65 mL/min/1.73m??? Normal >=60 [facility] Comment on above: Order Comment: Speci men Type: BLOOD SPECIMENOrdering Facility: [facility] Address: [address] [place] [address] Result Comment: Cristina mated Glomerular Filtration Rate [...] actual GFR. Performed By: #### 2 4323-8 ####[facility] [id number] [place] [address] Glucose [Mass/Vol] 82 mg/dL Normal 74-99 [facility] Comment on above: Order Comment: Speci men Type: BLOOD SPECIMENOrdering Facility: [facility] Address: [address] [place] [address] Result Comment: The [place] Diabetes Association (ADA) provides guidance for cutoff [...] Standards of Medical Care in Diabetes 2016, [place] [employer]. Diabetes Care. 2016.39(Suppl 1). Performed By: #### 2 4323-8 ####[facility] [id number] [place] [address] Potassium [Moles/Vol] 4.8 mmol/L Normal 3.7-5.1 [facility] Comment on above: Order Comment: Speci men Type: BLOOD SPECIMENOrdering Facility: [facility] Address: [address] [place], [place] [address] Performed By: #### 2 4323-8 ####[facility] [id number] [place] [address] Protein [Mass/Vol] 6.4 g/dL Normal 6.3-8.0 [facility] Comment on above: Order Comment: Speci men Type: BLOOD SPECIMENOrdering Facility: [facility] Address: [address] [place] [address] Performed By: #### 2 4323-8 ####[facility] [id number] [place] [address] Sodium [Moles/Vol] 140 mmol/L Normal 136-144 [facility] Comment on above: Order Comment: Speci men Type: BLOOD SPECIMENOrdering Facility: [facility] Address: [address] [place] [address] Performed By: #### 2 4323-8 ####[facility] [id number] [place] [address] Urea nitrogen [Mass/Vol] 27 mg/dL High 9-24 [facility] Comment on above: Order Comment: Speci men Type: BLOOD SPECIMENOrdering Facility: [facility] Address: [address] [place] [address] Performed By: #### 2 4323-8 ####[facility] [id number] [place] [address] Eosinophils/100 WBC Auto (Bl d)on 01-18-2025 Eosinophils/100 WBC (Bld) Automated eosinophil % [facility] Erythrocyte distribution wid th Auto (RBC) [Ratio]on 01-18-2025 Erythrocyte distribution width (RBC) [Ratio] Erythrocyte distribution width [Ratio] by Automated count 11.5-15.0 [facility] Hematocrit Auto (Bld) [Volum e fraction]on 01-18-2025 Hematocrit (Bld) [Volume fraction] Hematocrit [Volume Fraction] of Blood by Automated count Low 39.0-51.0 [facility] Hemoglobin [Mass/volume] in Bloodon 01-18-2025 Hemoglobin (Bld) [Mass/Vol] Hemoglobin [Mass/volume] in Blood Low 13.0-17.0 [facility] - Chemistry and C hemistry - challengeon 01-18-2025 Albumin [Mass/Vol] 3.9 g/dL 3.9-4.9 [facility] ALP [Catalytic activity/Vol] 57 U/L 38-113 [facility] ALT [Catalytic activity/Vol] 18 U/L 10-54 [facility] AST [Catalytic activity/Vol] 17 U/L 14-40 [facility] Bilirubin [Mass/Vol] 0.3 mg/dL 0.2-1.3 [facility] Calcium [Mass/Vol] 9.5 mg/dL 8.5-10.2 [facility] Chloride [Moles/Vol] 107 mmol/L 98-107 [facility] CO2 [Moles/Vol] 23 mmol/L 22-30 [facility] Creatinine [Mass/Vol] 1.10 mg/dL 0.73-1.22 [facility] Glucose [Mass/Vol] 82 mg/dL 74-99 [facility] Comment on above: The [place] Diabete s Association (ADA) provides guidance for [...] Standards of Medical Care in Diabetes 2016, [place] Diabetes [employer]. Diabetes Care. 2016.39(Suppl 1). Potassium [Moles/Vol] 4.8 mmol/L 3.7-5.1 [facility] Sodium [Moles/Vol] 140 mmol/L 136-144 [facility] Urea nitrogen [Mass/Vol] 27 mg/dL High 9-24 [facility] - Hematology and Cell countson 01-18-2025 Eosinophils (Bld) [#/Vol] 0.24 10*3/uL <0.46 [facility] Immature granulocytes/100 WBC (Bld) 0.2 % [facility] Leukocytes [#/volume] correc ramona for nucleated erythrocytes in Blood by Automated counon 01-18-2025 WBC corrected for nucl RBC Auto (Bld) [#/Vol] Leukocytes [#/volume] corrected for nucleated erythrocytes in Blood by Automated coun 3.70-11.00 [facility] Lymphocytes Auto (Bld) [#/Vo l]on 01-18-2025 Lymphocytes (Bld) [#/Vol] Lymphocytes [#/volume] in Blood by Automated count 1.00-4.00 [facility] Lymphocytes/100 WBC Auto (Bl d)on 01-18-2025 Lymphocytes/100 WBC (Bld) Lymphocytes/100 leukocytes in Blood by Automated count [facility] MCH Auto (RBC) [Entitic mass ]on 01-18-2025 MCH (RBC) [Entitic mass] MCH [Entitic mass] by Automated count 26.0-34.0 [facility] MCHC Auto (RBC) [Mass/Vol]on 01-18-2025 MCHC (RBC) [Mass/Vol] MCHC [Mass/volume] by Automated count 30.5-36.0 [facility] MCV Auto (RBC) [Entitic vol] on 01-18-2025 MCV (RBC) [Entitic vol] MCV [Entitic vol ume] by Automated count 80.0-100.0 [facility] Monocytes Auto (Bld) [#/Vol] on 01-18-2025 Monocytes (Bld) [#/Vol] Automated blood monocyte count <0.87 [facility] Monocytes/100 WBC Auto (Bld) on 01-18-2025 Monocytes/100 WBC (Bld) Automated monocyte % [facility] Neutrophils Auto (Bld) [#/Vo l]on 01-18-2025 Neutrophils (Bld) [#/Vol] Neutrophils [#/volume] in Blood by Automated count 1.45-7.50 [facility] Neutrophils/100 WBC Auto (Bl d)on 01-18-2025 Neutrophils/100 WBC (Bld) Automated neutrophil % [facility] No Panel Informationon 01-18 Estimated GFR (CKD-EPI) 65 mL/min/1.73m??? >=60 [facility] Comment on above: Estimated Glomerular Filtration [...] Immature Granulocyte # (Auto) <0.03 k/uL <0.10 [facility] Nucleated RBC Auto (Bld) [#/ Vol]on 01-18-2025 Nucleated RBC (Bld) [#/Vol] Nucleated erythrocytes [#/volume] in Blood by Automated count <0.01 [facility] Nucleated erythrocytes [Pres ence] in Blood by Automated counton 01-18-2025 Nucleated RBC Auto Ql (Bld) Nucleated erythrocytes [Presence] in Blood by Automated count [facility] Platelet mean volume Auto (B ld) [Entitic vol]on 01-18-2025 Platelet mean volume (Bld) [Entitic vol] Platelet mean volume [Entitic volume] in Blood by Automated count Low 9.0-12.7 [facility] Platelets Auto (Bld) [#/Vol] on 01-18-2025 Platelets (Bld) [#/Vol] Platelets [#/vol ume] in Blood by Automated count 150-400 [facility] Protein [Mass/volume] in Ser um or Plasmaon 01-18-2025 Protein [Mass/Vol] Protein [Mass/volume ] in Serum or Plasma 6.3-8.0 [facility] RBC Auto (Bld) [#/Vol]on RBC (Bld) [#/Vol] Erythrocytes [#/volume] in Blood by Automated count Low 4.20-6.00 [facility] Serum or plasma anion gap de terminationon 01-18-2025 Anion gap [Moles/Vol] Serum or plasma an ion gap determination 8-15 [facility] Influenza virus B Ag [Presen ce] in Upper respiratory specimen by Rapid immunoassayon 01-08-2025 FLUBV Ag IA.rapid Ql (Nph) Influenza virus B Ag [Presence] in Upper respiratory specimen by Rapid immunoassay [facility] No Panel Informationon 01-08 Influenza Type A (Rapid) Negative [facility] POC SARS CoV-2 Antigen Negative [facility] Carlos 11-23-2024 L - -------- Specimen: [id number] Received: 11/24/24 Status: RICHARD Camp Num: [id number] Spec Type: Cytology Subm Dr: Kylie Dietrich MD Tissues: A WASHING (BLADDER WASHING) Procedures: Gross/Micro L4, Cyto Prepstain, PAPSTN -------- Age/ Patient Sex Location Account Attending Physician -------- Kennedy Kong/M LABELL [id number] Kylie Dietrich MD -------- SPEC NUM: [id number] RECD: 11/24/24 STATUS: RICHARD CAMP NUM: [id number] MAHENDRA: 11/23/24 [facility] DR: Kylie Dietrich MD ENTERED: 11/24/24 [facility] DR: Juana Irene SPEC TYPE: Cytology DEPT: LAURA CASTANEDA ENTERED BY: [id number] RECV BY: [id number] ORDERED: Gross/Micro L4, Cyto Prepstain, PAPSTN ORDERED: Gross/Micro L4, Cyto Prepstain, PAPSTN Pathological Diagnosis Urinary bladder washings: Groups of atypical urothelial cells noted. Acute inflammation. Gross Description Received fresh is 20 ml red-brown cloudy unfixed fluid for cytology said to have been obtained as Bladder Washings. ThinPrep preparations are prepared for microscopic examination. (CC/nh) CPT Codes 62670 -------- -------- Specimen: [id number] Received: 11/24/24 Status: RICHARD Camp Num: [id number] Spec Type: Cytology Subm Dr: Kylie Dietrich MD Tissues: A WASHING (BLADDER WASHING) Procedures: Gross/Micro L4, Cyto Prepstain, PAPSTN -------- Patient: Kennedy Kong [id number] (Continued) -------- Signed (signature on file) Thien Woods MD 11/24/24 1612 Normal [facility] Any 10-30-2024 CNPN Telephone (HEMASA) KENNEDY KONG ([id number]) 1935 M Date Time Provider Department 10/30/24 SHERRON SINGH During your visit today, we recorded the following information about you: Sherron Singh RN 10/30/2024 1:45 PM Signed Pt scheduled for repeat cytoscopy w/ Dr Dietrich in November. Virginia from Dr Dietrich' office calls today because the pt informed her that he had the scope in our office already. Explained to Virginia that our physicians do not perform cystoscopies. Informed her that he could be mistakenly referring to the PET scan that he had done here on 10/20/24. Virginia verbalizes understanding and will discuss further w/ pt. Sherron Singh RN Allergies As of Date: 10/30/2024 Noted Allergy Reaction AMOXICILLIN 04/28/2013 14 - Other: See Comments Comments: Pt gets sores in mouth Date Reviewed: 10/28/2024 Reviewed by: Angela Ryan MA - Fully Assessed Reason for Visit: Care Coordination [3491] Cmt: Urology Question Prescriptions as of 10/30/2024 - iv contrast (will be provided with radiology [...] in the CT contrast administration guidelines link. - enteric contrast (will be provided with radiology test) For CT CHESTABD/PEL W IVCON Routine order Administer, As Directed One Time Only, via Oral, Rectal, both Oral and Rectal, Enteric Tube, Stoma or Indwelling Catheter, Enteric Contrast as designated per enteric contrast guidelines - iv contrast (will be provided with radiology [...] in the CT contrast administration guidelines link. - enteric contrast (will be provided with radiology test) For CT CHESTABD/PEL W IVCON Routine order Administer, As Directed One Time Only, via Oral, Rectal, both Oral and Rectal, Enteric Tube, Stoma or Indwelling Catheter, Enteric Contrast as designated per enteric contrast guidelines - Catheter ([facility]) misc 1 Device once daily. - CARROLL CHEWABLE ASPIRIN 81 mg chewable tablet CHEW 1 TABLET ONCE DAILY - carvedilol (COREG) 6.25 mg tablet Take 6.25 mg by mouth two times a day with meals. - clopidogrel (PLAVIX) 75 mg tablet Take 75 mg by mouth once daily. - rosuvastatin (CRESTOR) 40 mg tablet Take 40 mg by mouth once daily. - tamsulosin (FLOMAX) 0.4 mg Take 0.4 mg by mouth once daily. - Fish Oil-DHA-EPA 1,200-144-216 mg cap Take by mouth once daily. 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 INTERVAL HISTORY: Overall doing fairly well. Denies hematuria. Is having some increased urgency and some decreased stream with incontinence wearing depends at night. No bowel related issues. RADIOLOGY: CT chest 09/30/2024: New 1.1 cm right upper lobe nodule and 0.6 cm right middle lobe nodule. Consider PET CT to assess the dominant pulmonary nodule, otherwise attention on follow-up is recommended. CT abdomen and pelvis 09/30/2024: No metastatic disease in the abdomen or pelvis. 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 PET/CT 10/20/2024: Circumferential bladder wall thickening with perivesical and perirectal fat stranding likely representing postradiation changes. Nonavid right upper and middle lobe lung nodules, recommend follow-up with CT. ALLERGIES Allergen Reactions Amoxicillin Other: See Comments Pt gets sores in mouth MEDICATIONS: CARROLL CHEWABLE ASPIRIN 81 mg chewable tablet CHEW 1 TABLET ONCE DAILY carvedilol (COREG) 6.25 mg tablet Take 6.25 mg by mouth two times a day with meals. rosuvastatin (CRESTOR) 40 mg tablet Take 40 mg by mouth once daily. tamsulosin (FLOMAX) 0.4 mg Take 0.4 mg by mouth once daily. Fish Oil-DHA-EPA 1,200-144-216 mg cap Take by mouth once daily. iv contrast (will be provided with radiology [...] in the CT contrast administration guidelines link. enteric contrast (will be provided with radiology test) For CT CHESTABD/PEL W IVCON Routine order Administer, As Directed One Time Only, via Oral, Rectal, both Oral and Rectal, Enteric Tube, Stoma or Indwelling Catheter, Enteric Contrast as designated per enteric contrast guidelines Catheter ([facility]ALE EXTERNAL CATH) misc 1 Device once daily. clopidogrel (PLAVIX) 75 mg tablet Take 75 mg by mouth once daily. REVIEW OF SYSTEMS: GENERAL: Negative [...] rashes or other skin changes. PHYSICAL EXAM: 10/28/24 1005 BP: 120/74 Pulse: 73 Resp: 16 Temp: 36.5 ?C (97.7 ?F) SpO2: 99% Weight: 84 kg (185 lb 3 oz) KPS: 90 General Appearance: Alert and oriented. No acute distress. Neck: Normal ROM. No palpable cervical or supraclavicular adenopathy. Abdomen: Soft. Nontender. Nondistended. Musculoskeletal: No edema. Normal ROM in extremities. No bone or spine tenderness. Neuro: Speech fluent. Gait normal. No focal deficits. Skin: No rashes noted Lymphatics: No palpable lymphadenopathy. 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 Has follow-up upcoming with Dr. Dietrich. Recent imaging without evidence of metastasis. 2. Lung nodules PET without suspicious uptake. Likely benign patient continue CT surveillance. Signed by: Suzanne Grajeda MD cc: Lesa Estrella ([facility]) [address] [place] [id number] No referring provider defined for this encounter. Allergies As of Date: 10/28/2024 Noted Allergy Re (more content not included)... Normal [facility] CNOVSPon 10-28-2024 CNOVSP Visit (SP) Office (HEMASA) AIDENARSHKENNEDY ([id number]) 1935 M Date Time Provider Department 10/28/24 11:20 AM EUGENE CHAPARRO During your visit today, we recorded the following information about you: Temperature Pulse Respiration Blood pressure 97.7 degrees 73/minute 16/minute 120/74 Weight Height 84 kg 1.784 m Bianca Odonnell 10/28/2024 10:44 AM Signed Follow up with Dr. Dietrich as scheduled in 11/2024 CT CAP with labs in 3 months RTC 1 week after Eugene Chaparro MD 10/29/2024 12:46 PM Signed NAME: Kennedy Kong CLINIC NO.: [id number] DATE OF SERVICE: October 28, 2024 (Daenn) Some elements in this clinic note that are critical to medical decision making have been carefully reviewed and included from a prior clinic note dated: July 01, 2024 (Deann) Referring Provider: Dr. Leigh Grajeda Additional Clinicians involved in Amasumit Kong's care: Lesa Estrella, Avel HeathKylie CC: Follow up for treatment. DIAGNOSIS: High grade muscle invasive bladder cancer ASSESSMENT: 89 year old man with a history of [...] December 05, 2023, was identified as having lonh-voopr-ldmqzd invasive papillary bladder cancer and has been referred to Radiation oncology and subsequently to me for an opinion regarding chemotherapy. 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 He would likely tolerate low dose weekly cisplatin for radiosensitizing given appropriate supportive therapy. Will Coordinate with Dr. Grajeda. PLAN: Follow up with Dr. Dietrich as scheduled in 11/2024 CT CAP with labs in 3 months RTC 1 week after - HPI: CASE HISTORY: Reverse Chronological Order 10/20/2024 - PET/CT: Circumferential bladder wall thickening with perivesical and perirectal fat stranding likely representing postradiation changes. Nonavid right upper and middle lobe lung nodules, recommend follow-up with CT. 09/30/2024 - CT CAP: Chest: New 1.1 cm right upper lobe nodule and 0.6 cm right middle lobe nodule. Consider PET CT to assess the dominant pulmonary nodule, otherwise attention on follow-up is recommended. A/P: No metastatic disease in the abdomen or pelvis. 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 06/29/2024 - Cystoscopy: Dr. Dietrich Indurated thick bulbar urethral stricture No evidence of classic papillary bladder tumors 2 area that are minimally raised and erythematous on the right wall. 1 in the mid right wall and the other in the back right wall. Both of these areas are 1cm or less. 01/20/2024-03/02/2024 - Radiation to bladder 01/20/2024-02/19/2024 - Weekly Cisplatin 20 mg/m2 started with radiation (total dose of Cisplatin was 400mg/m2) 01/08/2024 - CT Chest: Subcentimeter noncalcified and [...] loops with rapid tapering and stool backup al (more content not included)... Normal [facility] Reminderson 10-27-2024 Reminders Reminders From: Lucero Sutherland To: EU - Recalls Dietrich; Sent: 05/05/2024 11:08:13 EDT Show up: 10/21/2024 11:08:00 EST Subject: cysto/fish/cytol Due Date/Time: 11/09/2024 11:08:00 EST Reminder/Recall Patient is due for 6 month cysto/fish/cytol (bt ck) in December 2024 see other note Normal [facility] Reminders Reminders From: Lucero Sutherland To: EU - Recalls Dietrich; Sent: 07/02/2024 10:48:31 EDT Show up: 09/20/2024 10:48:00 EST Subject: cysto/fish/cytol Due Date/Time: 10/12/2024 10:48:00 EST Reminder/Recall Patient needs sched for 4-6 month cysto/fish/cytol (bt ck) in Oct- december 2024 Spoke to pt, sched for 11/23/24 at [facility] Normal [facility] GLUCOSE, BLOOD (POC)on 10-20 Glucose [Mass/Vol] 86 mg/dL 74 - 99 mg/dL [facility] Comment on above: Location:[facility], [address] [place] [address] , [place], [place], [facility] The Accu-Chek Inform II glucose meter has not been approved for testing on patients receiving intensive medical intervention or therapy and results from this point of care glucose test should not be used for patient management decisions in these cases. Inaccurate results may also occur from other interfering factors, such as N-acetylcysteine (blood concentrations of greater than 5mg/dL), galactose, extremes of hematocrit (<10 or >65), or high doses of ascorbic acid (vitamin C) greater than 3mg/dL. Consider alternate testing mechanisms (e.g. core lab, blood gas instrument) in the above situations. [facility] NM PET/CT SKULL-THIGH SUBQon 10-20-2024 NM PET/CT SKULL-THIGH SUBQ * * *Final Report* * * DATE OF EXAM: Oct 20 2024 1:28PM NRN [id number] - NM PET/CT SKULL-THIGH SUBQ / PROCEDURE REASON: Malignant neoplasm of urinary bladder, unspecified site (HCC) * * * * Physician Interpretation * * * * RESULT: EXAMINATION: BODY FDG PET-CT CLINICAL HISTORY: 89-year-old male with malignant neoplasm of the trigone of urinary bladder status post radiation. EXAM CATEGORY: Subsequent treatment strategy. TECHNIQUE: Radiopharmaceutical was administered intravenously followed by PET imaging from the eyes to thighs. Free breathing, low dose CT of the same body region was acquired without IV contrast for attenuation correction and anatomic localization. Unenhanced imaging is limited for the evaluation of some pathology and the acquired CT was not designed to produce diagnostic CT scan quality. Physiologic/non-patho logic uptake in some body regions could confound or obscure some pathology. * CT Dose-Length Product (DLP): 249 mGy*cm * CT Dose Reduction Employed: Yes * Blood glucose: 86 mg/dL * Injection site: Right Forearm-Antecubital * Injected activity: 10.8 mCi * Uptake Time: 52 minutes * Radiopharmaceutical: J77-Mtfxivrmixhrrbjxn e (FDG) COMPARISON: No previous FDG PET/CT available CORRELATION: CT chest abdomen pelvis 09/30/2024 RESULT: REFERENCES: FDG uptake is used as a surrogate marker for glucose metabolism. All reported standardized uptake values represent maximum SUV (SUVmax) per body weight, unless otherwise specified. SUV reference values, as follows: * Blood Pool (Descending Aorta): SUVmax 2.6 * Background Liver: SUVmax 3.6; SUVmean 2.4 Localizer Images: No additional findings HEAD AND NECK: Head: No radiotracer avid lesion or mass effect in the imaged intracranial compartment. Aerodigestive Tract: No radiotracer avid lesion. Lymph Nodes: No radiotracer avid lymphadenopathy. Neck Soft Tissues: No radiotracer avid thyroid nodule. CHEST: Lungs and Pleura: No radiotracer avid mass, nodule, or consolidation. No pleural effusion. 1.1 cm lateral posterior right upper lobe lung nodule with no abnormal uptake (4:134). 0.6 cm nodule at the same level better seen on prior CT with no abnormal uptake. Lymph Nodes: No radiotracer avid lymphadenopathy. Mediastinum: No radiotracer avid mass. Cardiovascular: Blood pool activity. No pericardial effusion. Normal heart size. Coronary artery calcifications. Chest Wall: No radiotracer avid soft tissue lesion. ABDOMEN AND PELVIS: Hepatobiliary: No radiotracer avid lesion. No measurable mass. Hepatic cysts. Spleen: No radiotracer avid lesion. No splenomegaly. Granulomata. Pancreas: No radiotracer avid lesion. Adrenals: No radiotracer avid nodule. Urinary Tract: Physiologic radiotracer excretion in the renal collecting systems. No hydronephrosis. GI Tract: No radiotracer avid lesion. No bowel dilation. Peritoneum: No radiotracer avid lesion. No ascites. Lymph Nodes: No radiotracer avid lymphadenopathy. Vasculature: Blood pool activity. Aortic atherosclerotic calcifications without aneurysm. Pelvic Organs: No radiotracer avid lesion. Circumferential bladder wall thickening with perivesical and perirectal fat stranding likely representing postradiation changes. MUSCULOSKELETAL: Bones: No radiotracer avid lesion. No lytic or sclerotic lesion. Degenerative changes. Soft Tissues: No radiotracer avid lesion. IMPRESSION: Circumferential bladder wall thickening with perivesical and perirectal fat stranding likely representing postradiation changes. Nonavid right upper and middle lobe lung nodules, recommend follow-up with CT. Transcribe Date/Time: Oct 25 2024 9:34P Dictated by: ROSANNE ELMORE MD This examination was interpreted and the report reviewed and electronically signed by: ROSANNE ELMORE MD on Oct 25 2024 9:46PM EST Thank you for allowing us to participate in the care of your patient. Should there be any questions regarding this interpretation, please call [phone]. If you are unable to reach us at the number above, please feel free to contact [facility] eRadiology at [phone]. [id number] Normal [facility] CNPMami 10-05-2024 CNPN Telephone (AIDEE) KENNEDY KONG ([id number]) 1935 M Date Time Provider Department 10/05/24 SHERRON SINGH During your visit today, we recorded the following information about you: Sherron Singh RN 10/05/2024 9:33 AM Signed ----- Message from Eugene Chaparro MD sent at 10/02/2024 5:53 PM EST ----- Hello Vincent - the CT shows a spot that we should look into more if you are ok with that - I would like to get a PET/CT before I see you next. Sherron Singh RN 10/05/2024 9:34 AM Signed Pt notified and agrees to PET. Clerical: Please call before scheduling. Thanks! Sherron Singh RN Lincoln Alcazar 10/05/2024 10:59 AM Signed Patient scheduled for PET 10/20 with an arrival time of 1245 and a scan time of 200. Follow up moved to 10/28/24 at 10:[address] Grajeda and 11:[address] Bravo. Patient notified and confirmed. Allergies As of Date: 10/05/2024 Noted Allergy Reaction AMOXICILLIN 04/28/2013 14 - Other: See Comments Comments: Pt gets sores in mouth Date Reviewed: 07/01/2024 Reviewed by: Eip Razo LPN - Fully Assessed Reason for Visit: Care Coordination [2647] Cmt: CT Results Prescriptions as of 10/05/2024 - iv contrast (will be provided with radiology [...] in the CT contrast administration guidelines link. - enteric contrast (will be provided with radiology test) For CT CHESTABD/PEL W IVCON Routine order Administer, As Directed One Time Only, via Oral, Rectal, both Oral and Rectal, Enteric Tube, Stoma or Indwelling Catheter, Enteric Contrast as designated per enteric contrast guidelines - Catheter ([facility] MALE EXTERNAL CATH) misc 1 Device once daily. - CARROLL CHEWABLE ASPIRIN 81 mg chewable tablet CHEW 1 TABLET ONCE DAILY - carvedilol (COREG) 6.25 mg tablet Take 6.25 mg by mouth two times a day with meals. - clopidogrel (PLAVIX) 75 mg tablet Take 75 mg by mouth once daily. - rosuvastatin (CRESTOR) 40 mg tablet Take 40 mg by mouth once daily. - tamsulosin (FLOMAX) 0.4 mg Take 0.4 mg by mouth once daily. - Fish Oil-DHA-EPA 1,200-144-216 mg cap Take by mouth once daily. 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 Encounter Status:Closed by LINCOLN ALCAZAR on 10/05/24 Normal [facility] Basophils Auto (Bld) [#/Vol] on 09-30-2024 Basophils (Bld) [#/Vol] Automated basoph il count <0.11 [facility] Basophils/100 WBC Auto (Bld) on 09-30-2024 Basophils/100 WBC (Bld) Automated basophil % [facility] Blood manual differential co mment interpretation narrativeon 09-30-2024 Manual differential comment Joshua (Bld) [Interp] Blood manual differential comment interpretation narrative [facility] CBC W Auto Differential pane l (Bld)on 09-30-2024 Basophils (Bld) [#/Vol] 0.03 10*3/uL Normal <0.11 [facility] Comment on above: Order Comment: Speci men Type: BLOOD SPECIMEN Ordering Facility: [facility] Address: [address] [place] [address] Performed By: #### 5 7021-8 #### [facility] CLIA [id number] [address] [place] [address] Basophils/100 WBC (Bld) 0.6 % Normal [facility] Comment on above: Order Comment: Speci men Type: BLOOD SPECIMEN Ordering Facility: [facility] Address: [address] [place] [address] Performed By: #### 5 7021-8 #### [facility] CLIA [id number] [address] [place] [address] Differential cell count method Nom (Bld) Auto Normal [facility] Comment on above: Order Comment: Speci men Type: BLOOD SPECIMEN Ordering Facility: [facility] Address: [address] [place] [address] Performed By: #### 5 7021-8 #### [facility] CLIA [id number] [address] [place] [address] Eosinophils (Bld) [#/Vol] 0.33 10*3/uL Normal <0.46 [facility] Comment on above: Order Comment: Speci men Type: BLOOD SPECIMEN Ordering Facility: [facility] Address: [address] [place] [address] Performed By: #### 5 7021-8 #### [facility] CLIA [id number] [address] [place] [address] Eosinophils/100 WBC (Bld) 7.1 % Normal [facility] Comment on above: Order Comment: Speci men Type: BLOOD SPECIMEN Ordering Facility: [facility] Address: [address] [place] [address] Performed By: #### 5 7021-8 #### [facility] CLIA [id number] [address] [place] [address] Erythrocyte distribution width (RBC) [Ratio] 13.0 % Normal 11.5-15.0 [facility] Comment on above: Order Comment: Speci men Type: BLOOD SPECIMEN Ordering Facility: [facility] Address: [address] [place] [address] Performed By: #### 5 7021-8 #### [facility] CLIA [id number] [address] [place] [address] Hematocrit (Bld) [Volume fraction] 33.8 % Low 39.0-51.0 [facility] Comment on above: Order Comment: Speci men Type: BLOOD SPECIMEN Ordering Facility: [facility] Address: [address] [place] [address] Performed By: #### 5 7021-8 #### [facility] CLIA [id number] [address] [place] [address] Hemoglobin (Bld) [Mass/Vol] 11.0 g/dL Low 13.0-17.0 [facility] Comment on above: Order Comment: Speci men Type: BLOOD SPECIMEN Ordering Facility: [facility] Address: [address] [place] [address] Performed By: #### 5 7021-8 #### [facility] CLIA [id number] [address] [place] [address] Immature granulocytes (Bld) [#/Vol] 10*3/uL Normal <0.10 [facility] Comment on above: Order Comment: Speci men Type: BLOOD SPECIMEN Ordering Facility: [facility] Address: [address] [place] [address] Performed By: #### 5 7021-8 #### [facility] CLIA [id number] [address] [place] [address] Immature granulocytes/100 WBC (Bld) 0.4 % Normal [facility] Comment on above: Order Comment: Speci men Type: BLOOD SPECIMEN Ordering Facility: [facility] Address: [address] [place] [address] Performed By: #### 5 7021-8 #### [facility] CLIA [id number] [address] [place] [address] Lymphocytes (Bld) [#/Vol] 1.04 10*3/uL Normal 1.00-4.00 [facility] Comment on above: Order Comment: Speci men Type: BLOOD SPECIMEN Ordering Facility: [facility] Address: [address] [place] [address] Performed By: #### 5 7021-8 #### [facility] CLIA [id number] [address] [place] [address] Lymphocytes/100 WBC (Bld) 22.3 % Normal [facility] Comment on above: Order Comment: Speci men Type: BLOOD SPECIMEN Ordering Facility: [facility] Address: [address] [place] [address] Performed By: #### 5 7021-8 #### [facility] CLIA [id number] [address] [place] [address] MCH (RBC) [Entitic mass] 30.4 pg Normal 26.0-34.0 [facility] Comment on above: Order Comment: Speci men Type: BLOOD SPECIMEN Ordering Facility: [facility] Address: [address] [place] [address] Performed By: #### 5 7021-8 #### [facility] CLIA [id number] [address] [place] [address] MCHC (RBC) [Mass/Vol] 32.5 g/dL Normal 30.5-36.0 [facility] Comment on above: Order Comment: Speci men Type: BLOOD SPECIMEN Ordering Facility: [facility] Address: [address] [place] [address] Performed By: #### 5 7021-8 #### [facility] CLIA [id number] [address] [place] [address] MCV (RBC) [Entitic vol] 93.4 fL Normal 80.0-100.0 [facility] Comment on above: Order Comment: Speci men Type: BLOOD SPECIMEN Ordering Facility: [facility] Address: [address] [place] [address] Performed By: #### 5 7021-8 #### [facility] CLIA [id number] [address] [place] [address] Monocytes (Bld) [#/Vol] 0.76 10*3/uL Normal <0.87 [facility] Comment on above: Order Comment: Speci men Type: BLOOD SPECIMEN Ordering Facility: [facility] Address: [address] [place] [address] Performed By: #### 5 7021-8 #### [facility] CLIA [id number] [address] [place] [address] Monocytes/100 WBC (Bld) 16.3 % Normal [facility] Comment on above: Order Comment: Speci men Type: BLOOD SPECIMEN Ordering Facility: [facility] Address: [address] [place] [address] Performed By: #### 5 7021-8 #### [facility] CLIA [id number] [address] [place] [address] Neutrophils (Bld) [#/Vol] 2.49 10*3/uL Normal 1.45-7.50 [facility] Comment on above: Order Comment: Speci men Type: BLOOD SPECIMEN Ordering Facility: [facility] Address: [address] [place] [address] Performed By: #### 5 7021-8 #### [facility] CLIA [id number] [address] [place] [address] Neutrophils/100 WBC (Bld) 53.3 % Normal [facility] Comment on above: Order Comment: Speci men Type: BLOOD SPECIMEN Ordering Facility: [facility] Address: [address] [place] [address] Performed By: #### 5 7021-8 #### [facility] CLIA [id number] [address] [place] [address] Nucleated RBC (Bld) [#/Vol] 10*3/uL Normal <0.01 [facility] Comment on above: Order Comment: Speci men Type: BLOOD SPECIMEN Ordering Facility: [facility] Address: [address] [place] [id number] Performed By: #### 5 7021-8 #### [facility] CLIA [id number] [address] [place] [address]4625 Nucleated RBC/100 WBC (Bld) [Ratio] 0.0 /100 WBC Normal [facility] Comment on above: Order Comment: Speci men Type: BLOOD SPECIMEN Ordering Facility: [facility] Address: [address] [place] [address] Performed By: #### 5 7021-8 #### [facility] CLIA [id number] [address] [place] [address] 26784 Platelet mean volume (Bld) [Entitic vol] 8.7 fL Low 9.0-12.7 [facility] Comment on above: Order Comment: Speci men Type: BLOOD SPECIMEN Ordering Facility: [facility] Address: [address] [place] [address] Performed By: #### 5 7021-8 #### [facility] CLIA [id number] [address] [place] [address] 27958 Platelets (Bld) [#/Vol] 145 10*3/uL Low 150-400 [facility] Comment on above: Order Comment: Speci men Type: BLOOD SPECIMEN Ordering Facility: [facility] Address: [address] [place], [place] [address] Performed By: #### 5 7021-8 #### [facility] CLIA [id number] [address] [place] [address] 14249 RBC (Bld) [#/Vol] 3.62 10*6/uL Low 4.20-6.00 [facility] Comment on above: Order Comment: Speci men Type: BLOOD SPECIMEN Ordering Facility: [facility] Address: [address] [place], [place] [address] Performed By: #### 5 7021-8 #### [facility] CLIA [id number] [address] [place] [address] 84309 WBC (Bld) [#/Vol] 4.67 10*3/uL Normal 3.70-11.00 [facility] Comment on above: Order Comment: Speci men Type: BLOOD SPECIMEN Ordering Facility: [facility] Address: [address] [place], [place] [address] Performed By: #### 5 7021-8 #### [facility] CLIA [id number] [address] [place] [address] ABD/PEL W IVCONon 024 CT ABD/PEL W IVCON * * *Final Report* * * DATE OF EXAM: Sep 30 2024 10:50AM [facility] 0530 - CT ABD/PEL W IVCON / 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 [...] was performed concurrently and is dictated separately. Bindery Machine Setter/Set Up Operator (topogram) images: Unremarkable. IMPRESSION: No metastatic disease in the abdomen or pelvis. 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 Transcribe Date/Time: Sep 30 2024 3:15P Dictated by: JASWINDER DICKERSON MD This examination was interpreted and the report reviewed and electronically signed by: JASWINDER DICKERSON MD on Sep 30 2024 3:25PM EST Thank you for allowing us to participate in the care of your patient. Should there be any questions regarding this interpretation, please call [phone]. If you are unable to reach us at the number above, please feel free to contact [facility] at [phone]. 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 MQ: CTCWOR_4 CT Dose-Length Product: 925 mGy*cm CT Dose Reduction Employed: Automated exposure control (AEC) Comparison: Chest CT 01/08/2024 RESULT: Lines, tubes, and devices: None. Lung parenchyma and airways: Trachea and central airways are patent. New 1.1 cm nodule lateral right upper lobe (image 116). New 0.6 cm right middle lobe nodule (image 113). Several additional smaller nodular opacities are unchanged for example a 3 mm nodule left upper lobe (image 64) and 5 mm nodule left lower lobe (image 166).. Pleural space: No pleural effusion or pneumothorax. Lower neck, lymph nodes, and mediastinum: No axillary, supraclavicular, mediastinal or hilar lymphadenopathy by CT size criteria. Heart, pericardium, and thoracic vessels: The heart is normal in size. Trace pericardial effusion. The thoracic aorta and main pulmonary artery are normal in caliber. Atherosclerotic calcifications of the thoracic aorta and coronary arteries. Bones/Soft Tissues: No aggressive osseous lesions. Upper abdomen: Dedicated CT imaging of the abdomen and pelvis was performed concurrently and is dictated separately. Bindery Machine Setter/Set Up Operator (topogram) images: Unremarkable. IMPRESSION: New 1.1 cm right upper lobe nodule and 0.6 cm right middle lobe nodule. Consider PET CT to assess the dominant pulmonary nodule, otherwise attention on follow-up is recommended. Transcribe Date/Time: Sep 30 2024 3:26P Dictated by: JASWINDER DICKERSON MD This examination was interpreted and the report reviewed and electronically signed by: JASWINDER DICKERSON MD on Sep 30 2024 3:30PM EST Thank you for allowing us to participate in the care of your patient. Should there be any questions regarding this interpretation, please call [phone]. If you are unable to reach us at the number above, please feel free to contact [facility] at [phone]. [id number] N Normal [facility] Comprehensive metabolic 2000 panelon 09-30-2024 Albumin [Mass/Vol] 3.6 g/dL Low 3.9-4.9 [facility] Comment on above: Order Comment: Speci men Type: BLOOD SPECIMENOrdering Facility: [facility] Address: [address] [place] [address] Performed By: #### 2 4323-8 ####[facility] [id number] [place] [address] ALP [Catalytic activity/Vol] 47 U/L Normal 38-113 [facility] Comment on above: Order Comment: Speci men Type: BLOOD SPECIMENOrdering Facility: [facility] Address: [address] [place] [address] Performed By: #### 2 4323-8 ####[facility] [id number] [place] [address] ALT [Catalytic activity/Vol] 16 U/L Normal 10-54 [facility] Comment on above: Order Comment: Speci men Type: BLOOD SPECIMENOrdering Facility: [facility] Address: [address] [place] [address] Performed By: #### 2 4323-8 ####[facility] [id number] [place] [address] Anion gap [Moles/Vol] 7 mmol/L Low 8-15 [facility] Comment on above: Order Comment: Speci men Type: BLOOD SPECIMENOrdering Facility: [facility] Address: [address] [place] [address] Performed By: #### 2 4323-8 ####[facility] [id number] [place] [address] AST [Catalytic activity/Vol] 14 U/L Normal 14-40 [facility] Comment on above: Order Comment: Speci men Type: BLOOD SPECIMENOrdering Facility: [facility] Address: [address] [place] [address] Performed By: #### 2 4323-8 ####[facility] [id number] [place] [address] Bilirubin [Mass/Vol] 0.3 mg/dL Normal 0.2-1.3 [facility] Comment on above: Order Comment: Speci men Type: BLOOD SPECIMENOrdering Facility: [facility] Address: [address] [place] [address] Performed By: #### 2 4323-8 ####[facility] [id number] [place] [address] Calcium [Mass/Vol] 8.9 mg/dL Normal 8.5-10.2 [facility] Comment on above: Order Comment: Speci men Type: BLOOD SPECIMENOrdering Facility: [facility] Address: [address] [place] [address] Performed By: #### 2 4323-8 ####[facility] [id number] [place] [address] Chloride [Moles/Vol] 107 mmol/L Normal 98-107 [facility] Comment on above: Order Comment: Speci men Type: BLOOD SPECIMENOrdering Facility: [facility] Address: [address] [place] [address] Performed By: #### 2 4323-8 ####[facility] [id number] [place] [address] CO2 [Moles/Vol] 26 mmol/L Normal 22-30 [facility] Comment on above: Order Comment: Speci men Type: BLOOD SPECIMENOrdering Facility: [facility] Address: [address] [place] [address] Performed By: #### 2 4323-8 ####[facility] [id number] [place] [address] Creatinine [Mass/Vol] 1.02 mg/dL Normal 0.73-1.22 [facility] Comment on above: Order Comment: Carli arthur Type: BLOOD SPECIMENOrdering Facility: [facility] Address: [address] [place] [address] Performed By: #### 2 4323-8 ####[facility] [id number] [place] [address] Creatinine and Glomerular filtration rate.predicted panel (S/P/Bld) 71 mL/min/1.73m??? Normal >=60 [facility] Comment on above: Order Comment: Carli arthur Type: BLOOD SPECIMENOrdering Facility: [facility] Address: [address] [place] [address] Result Comment: Cristina mated Glomerular Filtration Rate [...] actual GFR. Performed By: #### 2 4323-8 ####[facility] [id number] [place] [address] Glucose [Mass/Vol] 94 mg/dL Normal 74-99 [facility] Comment on above: Order Comment: Carli arthur Type: BLOOD SPECIMENOrdering Facility: [facility] Address: [address] [place] [address] Result Comment: The [place] Diabetes Association (ADA) provides guidance for cutoff [...] Standards of Medical Care in Diabetes 2016, [place] Diabetes Association. Diabetes Care. 2016.39(Suppl 1). Performed By: #### 2 4323-8 ####[facility] [id number] [place] [address] Potassium [Moles/Vol] 4.7 mmol/L Normal 3.7-5.1 [facility] Comment on above: Order Comment: Speci men Type: BLOOD SPECIMENOrdering Facility: [facility] Address: [address] [place] [address] Performed By: #### 2 4323-8 ####[facility]IA [id number] [place] [address] Protein [Mass/Vol] 5.7 g/dL Low 6.3-8.0 [facility] Comment on above: Order Comment: Speci men Type: BLOOD SPECIMENOrdering Facility: [facility] Address: [address] [place] [address] Performed By: #### 2 4323-8 ####[facility] [id number] [place] [address] Sodium [Moles/Vol] 140 mmol/L Normal 136-144 [facility] Comment on above: Order Comment: Speci men Type: BLOOD SPECIMENOrdering Facility: [facility] Address: [address] [place] [address] Performed By: #### 2 4323-8 ####[facility]CLIA [id number] [place] [address] Urea nitrogen [Mass/Vol] 30 mg/dL High 9-24 [facility] Comment on above: Order Comment: Speci men Type: BLOOD SPECIMENOrdering Facility: [facility] Address: [address] [id number] Performed By: #### 2 4323-8 ####[facility]CLIA [id number] [place] [address] Eosinophils/100 WBC Auto (Bl d)on 09-30-2024 Eosinophils/100 WBC (Bld) Automated eosinophil % [facility] Erythrocyte distribution wid th Auto (RBC) [Ratio]on 09-30-2024 Erythrocyte distribution width (RBC) [Ratio] Erythrocyte distribution width [Ratio] by Automated count 11.5-15.0 [facility] Ferritin SerPl-mCncon 2023 Ferritin [Mass/Vol] 88.9 ng/mL Normal 30.3-565.7 [facility] Comment on above: Order Comment: Speci men Type: BLOOD SPECIMEN [facility] Address: [address] [place] [address] Performed By: #### 5 7021-8 #### [facility] CLIA [id number] [address] [place] [address] Folate SerPl-mCncon 09-30-20 Folate [Mass/Vol] ng/mL Normal >4.7 [facility] Comment on above: Order Comment: Speci men Type: BLOOD SPECIMEN Order[facility] Facility: [facility] Address: [address] [place] [address] Result Comment: A re sult of > 20 ng/mL is not necessarily indicative of a pathologic or treatable condition: it reflects a limitation of the test methodology. Assay reference range: 4.8 to 24.2 ng/mL. Suitable for detection of folate deficiency. Reference: Folate III (Folate III) [package insert V 1.0 [place]]. [employer], [place], [place]: August 2015. Performed By: #### 5 7021-8 #### [facility] CLIA [id number] [address] [place] [address] Hematocrit Auto (Bld) [Volum e fraction]on 09-30-2024 Hematocrit (Bld) [Volume fraction] Hematocrit [Volume Fraction] of Blood by Automated count Low 39.0-51.0 [facility] Hemoglobin [Mass/volume] in Bloodon 09-30-2024 Hemoglobin (Bld) [Mass/Vol] Hemoglobin [Mass/volume] in Blood Low 13.0-17.0 [facility] Iron and Iron binding capaci ty panelon 09-30-2024 Iron [Mass/Vol] 56 ug/dL Normal 41-186 [facility] Comment on above: Order Comment: Speci men Type: BLOOD SPECIMEN Order[facility] Facility: [facility] Address: [address] [place] [address] Performed By: #### 5 7021-8 #### [facility] CLIA [id number] [address] [place] [address]6549 Iron binding capacity [Mass/Vol] 223 ug/dL Low 232-386 [facility] Comment on above: Order Comment: Speci men Type: BLOOD SPECIMEN Order[facility] Facility: [facility] Address: [address] [place] [address] Performed By: #### 5 7021-8 #### [facility] CLIA [id number] [address] [place] [address]12 Iron/TIBC [Molar ratio] 25.1 % Normal 15.0-57.0 [facility] Comment on above: Order Comment: Speci men Type: BLOOD SPECIMEN [facility] Facility: [facility] Address: [address] [place] [address] Performed By: #### 5 7021-8 #### [facility] CLIA [id number] [address] [place] [address] 88210 Iron binding capacity [Mass/ volume] in Serum or Plasmaon 09-30-2024 Iron binding capacity [Mass/Vol] Iron binding capacity [Mass/volume] in Serum or Plasma Low 232-386 [facility] Iron saturation [Mass Fracti on] in Serum or Plasmaon 09-30-2024 Iron saturation [Mass fraction] Iron saturation [Mass Fraction] in Serum or Plasma 15.0-57.0 [facility] - Chemistry and C hemistry - challengeon 09-30-2024 Albumin [Mass/Vol] 3.6 g/dL Low 3.9-4.9 [facility] ALP [Catalytic activity/Vol] 47 U/L 38-113 [facility] ALT [Catalytic activity/Vol] 16 U/L 10-54 [facility] AST [Catalytic activity/Vol] 14 U/L 14-40 [facility] Bilirubin [Mass/Vol] 0.3 mg/dL 0.2-1.3 [facility] Calcium [Mass/Vol] 8.9 mg/dL 8.5-10.2 [facility] Chloride [Moles/Vol] 107 mmol/L 98-107 [facility] CO2 [Moles/Vol] 26 mmol/L 22-30 [facility] Cobalamin (Vitamin B12) [Mass/Vol] 1072 pg/mL 232-1245 [facility] Creatinine [Mass/Vol] 1.02 mg/dL 0.73-1.22 [facility] Ferritin [Mass/Vol] 88.9 ng/mL 30.3-565.7 [facility] Glucose [Mass/Vol] 94 mg/dL 74-99 [facility] Comment on above: The [place] Diabete s Association (ADA) provides guidance for [...] Standards of Medical Care in Diabetes 2016, [place] Diabetes Association. Diabetes Care. 2016.39(Suppl 1). Iron [Mass/Vol] 56 ug/dL 41-186 [facility] Potassium [Moles/Vol] 4.7 mmol/L 3.7-5.1 [facility] Sodium [Moles/Vol] 140 mmol/L 136-144 [facility] Urea nitrogen [Mass/Vol] 30 mg/dL High 9-24 [facility] - Hematology and Cell countson 09-30-2024 Eosinophils (Bld) [#/Vol] 0.33 10*3/uL <0.46 [facility] Immature granulocytes/100 WBC (Bld) 0.4 % [facility] Leukocytes [#/volume] correc ramona for nucleated erythrocytes in Blood by Automated counon 09-30-2024 WBC corrected for nucl RBC Auto (Bld) [#/Vol] Leukocytes [#/volume] corrected for nucleated erythrocytes in Blood by Automated coun 3.70-11.00 [facility] Lymphocytes Auto (Bld) [#/Vo l]on 09-30-2024 Lymphocytes (Bld) [#/Vol] Lymphocytes [#/volume] in Blood by Automated count 1.00-4.00 [facility] Lymphocytes/100 WBC Auto (Bl d)on 09-30-2024 Lymphocytes/100 WBC (Bld) Lymphocytes/100 leukocytes in Blood by Automated count [facility] MCH Auto (RBC) [Entitic mass ]on 09-30-2024 MCH (RBC) [Entitic mass] MCH [Entitic mass] by Automated count 26.0-34.0 [facility] MCHC Auto (RBC) [Mass/Vol]on 09-30-2024 MCHC (RBC) [Mass/Vol] MCHC [Mass/volume] by Automated count 30.5-36.0 [facility] MCV Auto (RBC) [Entitic vol] on 09-30-2024 MCV (RBC) [Entitic vol] MCV [Entitic vol ume] by Automated count 80.0-100.0 [facility] Monocytes Auto (Bld) [#/Vol] on 09-30-2024 Monocytes (Bld) [#/Vol] Automated blood monocyte count <0.87 [facility] Monocytes/100 WBC Auto (Bld) on 09-30-2024 Monocytes/100 WBC (Bld) Automated monocyte % [facility] Neutrophils Auto (Bld) [#/Vo l]on 09-30-2024 Neutrophils (Bld) [#/Vol] Neutrophils [#/volume] in Blood by Automated count 1.45-7.50 [facility] Neutrophils/100 WBC Auto (Bl d)on 09-30-2024 Neutrophils/100 WBC (Bld) Automated neutrophil % [facility] No Panel Informationon 09-30 Estimated GFR (CKD-EPI) 71 mL/min/1.73m??? >=60 [facility] Comment on above: Estimated Glomerular Filtration [...] eGFR may not accurately reflect actual GFR. Folate >20.0 ng/mL >4.7 [facility] Comment on above: A result of > 20 ng/ mL is not necessarily indicative of a pathologic or treatable condition: it reflects a limitation of the test methodology.Assay reference range: 4.8 to 24.2 ng/mL. Suitable for detection of folate deficiency.Reference:Folate III (Folate III) [package insert V 1.0 [place] [facility], [place], [place]: August 2015. Immature Granulocyte # (Auto) <0.03 k/uL <0.10 [facility] Nucleated RBC Auto (Bld) [#/ Vol]on 09-30-2024 Nucleated RBC (Bld) [#/Vol] Nucleated erythrocytes [#/volume] in Blood by Automated count <0.01 [facility] Nucleated erythrocytes [Pres ence] in Blood by Automated counton 09-30-2024 Nucleated RBC Auto Ql (Bld) Nucleated erythrocytes [Presence] in Blood by Automated count [facility] Platelet mean volume Auto (B ld) [Entitic vol]on 09-30-2024 Platelet mean volume (Bld) [Entitic vol] Platelet mean volume [Entitic volume] in Blood by Automated count Low 9.0-12.7 [facility] Platelets Auto (Bld) [#/Vol] on 09-30-2024 Platelets (Bld) [#/Vol] Platelets [#/vol ume] in Blood by Automated count Low 150-400 [facility] Protein [Mass/volume] in Ser um or Plasmaon 09-30-2024 Protein [Mass/Vol] Protein [Mass/volume ] in Serum or Plasma Low 6.3-8.0 [facility] RBC Auto (Bld) [#/Vol]on RBC (Bld) [#/Vol] Erythrocytes [#/volume] in Blood by Automated count Low 4.20-6.00 [facility] Serum or plasma anion gap de terminationon 09-30-2024 Anion gap [Moles/Vol] Serum or plasma an ion gap determination Low 8-15 [facility] Vit B12 SerPl-mCncon 024 Cobalamin (Vitamin B12) [Mass/Vol] 1072 pg/mL Normal 232-1245 [facility] Comment on above: Order Comment: Speci men Type: BLOOD SPECIMEN [facility] Address: [address] [place] [address] Performed By: #### 5 7021-8 #### [facility] CLIA [id number] [address] [place] [address] Ambulatory Visit Summaryon 0 07-16-2024 Ambulatory Visit Summary Ambulatory Visit Summary KENNEDY KONG :1935 Visit Date:07/16/2024 Ambulatory Visit Instructions Your Diagnosis BPH with obstruction/lower urinary tract symptoms Urge incontinence Recurrent bladder papillary carcinoma Your Care Team Attending Physician - Niki Castanon Primary Care Physician - LESA ESTRELLA DO This Is Your Medications List Contact prescribing physician if questions or concerns Non-Formulary Medication (super beta prostate) losartan (losartan 25 mg Tab) lubiprostone (lubiprostone 24 mcg Cap) mirabegron (Myrbetriq 50 mg oral tablet, extended release) ondansetron (ondansetron 8 mg Tab) rosuvastatin (rosuvastatin 40 mg Tab) tamsulosin (Flomax 0.4 mg Cap) ticagrelor (Brilinta (ticagrelor) 90 mg oral tablet) Procedures Performed Radiation therapy care (03/02/2024), TURBT - Transurethral resection of bladder tumor (12/05/2023), Endoscopic destruction of bladder tumor by laser (12/13/2020), TURBT - Transurethral resection of bladder tumor (05/26/2020), Hydrocelectomy (2001), Cardiac catheterization, Cataract, colon resection, colonoscopy. Discharge Vitals Temperature (Temporal Artery) 37 ?C Heart Rate (Peripheral) 64 Respiratory Rate 16 Blood Pressure 107/60 Height 179 cm Height 70 in Weight 83 kg Weight 182.6 lb BMI 25.9 What to do next You Need to Schedule the Following Appointments Follow Up with WILY CHOI, NOY Carrera When: Within 3 months Comments: Due for cysto in Oct 2024 Where: [facility] [place] [id number]- Medications What How Much When Instructions Unchanged losartan (losartan 25 mg Tab) TAKE 1 TABLET BY MOUTH EVERY DAY Contact prescribing physician if questions or concerns Unchanged lubiprostone (lubiprostone 24 mcg Cap) TAKE 1 CAPSULE BY MOUTH TWICE A DAY FOR 7 DAYS Contact prescribing physician if questions or concerns Unchanged mirabegron (Myrbetriq 50 mg oral tablet, extended release) 1 Tablets By Mouth Every day Contact prescribing physician if questions or concerns Unchanged Non-Formulary Medication (super beta prostate) See instructions Contact prescribing physician if questions or concerns [...] choosing us for your care. [employer] Benign Prostatic Hyperplasia Benign prostatic hyperplasia (BPH) is an enlarged prostate gland that is caused by the normal aging process. The prostate may get bigger as a man gets older. The condition is not caused by cancer. The prostate is a walnut-sized gland that is involved in the production of semen. It is located in front of the rectum and below the bladder. The bladder stores urine. The urethra carries stored urine out of the body. An enlarged prostate can press on the urethra. This can make it harder to pass urine. The buildup of urine in the bladder can cause infection. Back pressure and infection may progress to bladder damage and kidney (renal) failure. What are the causes? This condition is part of the normal aging process. However, not all men develop problems from this condition. If the prostate enlarges away from the urethra, urine flow will not be blocked. If it enlarges toward the urethra and compresses it, there will be problems passing urine. What increases the risk? This condition is more likely to develop in men older than 50 years. What are the signs or symptoms? Symptoms of this conditio (more content not included)... Normal [facility] Urology Office/Clinic Noteon 07-16-2024 Urology Office/Clinic Note Urology Office/Clinic Note Chief Complaint urimne retention HPI Staff 89 year old male patient presents today with low urine output. Dx: recurrent bladder papillary carcinoma, BPH with obstruction/LUTS, hydrocele. Pt states that he is leaking urine all the time and now is wearing depends daily. Not only leaking urine but states that he also leaks from his bowels also at times. *Tamsulosin 0.4mg qd, Myrbetriq 50 mg ER qd Repeat TURBT 12/05/23. S/P 06/29/24-cysto with UD Saw Dr. Doyle 07/01/24. Dysuria: denies Incomplete bladder emptying: PVR is 74ml today Hematuria: denies Frequency: pt leaks all day Urgency: once in a while Nocturia: 1-2x Stream: weak with straining Leaking: yes Post void dripping: yes Wearing pads/ Depends: yes wears depends and changes Urge incontinence: denies Stress incontinence: denies Incontinence without Sensory Awareness: yes Abdominal pain: denies Flank pain: denies Sexual complaints: denies History of Present Illness Staff HPI reviewed and agree. Review of Systems PHQ Score Initial Depression Screen Score: 0 SCORE no fever, chills, malaise, myalgia. no rash/lesions. no chest pain, palpitations, or SOB. no abdominal pain, nausea, vomiting. no unilateral calf swelling, redness, pain Physical Exam Vitals & Measurements T: 37 ?C(Temporal Artery) HR: 64(Peripheral) RR: 16 BP: 107/60 HT: 70 in HT: 179 cm WT: 83 kg WT: 182.6 lb BMI: 25.9 General: nontoxic, well-nourished, appears stated age Mouth: moist mucosa Lungs: normal respiratory effort Cardio: regular rate, good distal perfusion Abdomen: nondistended, no suprapubic distention or tenderness, no CVA tenderness Neurologic: Grossly normal Skin: No rashes or suspicious lesions Assessment/Plan PRW pt 1. BPH with obstruction/lower urinary tract symptoms (N40.1: Benign prostatic hyperplasia with lower urinary tract symptoms) 06/29/24 cysto/UD - indurated thick urethral bulbar stricture, no evidence of classic papillary bladder tumors, two areas that are minimally raised and erythematous on the R wall, 1 in the mid R wall and the other in the back R wall. Both of these areas are 1cm or less UA today trace-intact blood only PVR today 74ml Pt called in to report feelings of incomplete emptying, weak stream and straining. Pt also reports that he leaks constantly throughout the day. Pt reports he leaks urine and stool. Advised pt that the leaking could be from previous radiation treatments. Pt verbalized understanding. Pt reports that recent cysto/UD did not make a difference in his symptoms. Pt is currently taking Flomax 0.4mfgdaily. Pt denies SEs from this med. Advised pt that we could increase to BID to see if this helps his bothersome symptoms but he needs to closely watch for dizziness/lightheaded ness. Pt aware and knows to go back to taking Flomax daily and call our office if this happens. Briefly discussed pt having to do CIC in the past, but due to low PVR this is not advised at this time. -Increase Flomax 0.4mg to BID, monitor for SEs -Call our office and decrease Flomax back to daily if bothersome SEs occur -Increase fluids -Pt due for surveillance cysto in October, will be calling to schedule Ordered: E&M of Est. Patient Moderate 30-39 Min 07659 Urnls Dip Stick Auto w/o Microscopy POC 44537 2. Urge incontinence (N39.41: Urge incontinence) UA today trace-intact blood only PVR today 74ml Pt continues to report severe leakage. Wears depends for both urine and stool leakage. 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 Pt reports he is being referred to Dr. Heath at [facility] for possible bowel strictures per Dr. Grajeda. -Continue Myrbetriq ER 50mg PO daily -Increase fluids, avoid bladder irritants Ordered: E&M of Est. Patient Moderate 30-39 Min 85552 3. 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 Calcification adhered to tumors. S/p TUR (more content not included)... Normal [facility] Comment on above: Result Comment: Elec tronically Signed By: Tim HEARD, Niki Em\.br\Date and Time Signed: 07/16/24 09:04 EDT CNPMami 07-06-2024 CNPN Telephone (NCCAP) KENNEDY KONG ([id number]) 1935 M Date Time Provider Department 07/06/24 [facility] During your visit today, we recorded the following information about you: Lali Byrd Dinora 07/06/2024 10:[address] Eugene Chaparro is referring Kennedy back to Dr Heath for possible bowel strictures. Same dx as before. Thank you for scheduling this appointment. Allergies As of Date: 07/06/2024 Noted Allergy Reaction AMOXICILLIN 04/28/2013 14 - Other: See Comments Comments: Pt gets sores in mouth Date Reviewed: 07/01/2024 Reviewed by: Epi Razo LPN - Fully Assessed Reason for Visit: Future Appointment [256] Prescriptions as of 07/07/2024 - iv contrast (will be provided with radiology [...] in the CT contrast administration guidelines link. - enteric contrast (will be provided with radiology test) For CT CHESTABD/PEL W IVCON Routine order Administer, As Directed One Time Only, via Oral, Rectal, both Oral and Rectal, Enteric Tube, Stoma or Indwelling Catheter, Enteric Contrast as designated per enteric contrast guidelines - C[facility]ter ([facility] misc 1 Device once daily. - CARROLL CHEWABLE ASPIRIN 81 mg chewable tablet CHEW 1 TABLET ONCE DAILY - carvedilol (COREG) 6.25 mg tablet Take 6.25 mg by mouth two times a day with meals. - clopidogrel (PLAVIX) 75 mg tablet Take 75 mg by mouth once daily. - rosuvastatin (CRESTOR) 40 mg tablet Take 40 mg by mouth once daily. - tamsulosin (FLOMAX) 0.4 mg Take 0.4 mg by mouth once daily. - Fish Oil-DHA-EPA 1,200-144-216 mg cap Take by mouth once daily. 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 Interpretation - The UroVysion FISH study detected normal copy numbers for chromosomes 3, 7, 17, and 9p21. 167 cells were analyzed in this evaluation. No evidence of aneuploidy for chromosomes 3, 7, or 17 or deletion of the 9p21 locus was found in cells present in this specimen. This test does not rule out the possibility of a low grade non-invasive papillary urothelial carcinoma. These findings should be correlated with cytology and cystoscopy results.* MicroScopic Description - MicroScopic Description - Electronically signed by : on: 07/06/2024 11:05:52 Performed By: #### 1 [id number] #### [facility] [address] [place] [address] Basophils Auto (Bld) [#/Vol] on 07-01-2024 Basophils (Bld) [#/Vol] 0.04 10*3/uL <0.11 [facility] Basophils/100 WBC Auto (Bld) on 07-01-2024 Basophils/100 WBC (Bld) 0.7 % F [facility] Blood manual differential co mment interpretation narrativeon 07-01-2024 Manual differential comment Joshua (Bld) [Interp] Auto [facility] CBC W Auto Differential pane l (Bld)on 07-01-2024 Basophils (Bld) [#/Vol] 0.04 10*3/uL Normal <0.11 [facility] Comment on above: Order Comment: Speci men Type: BLOOD SPECIMEN Ordering Facility: [facility] Address: [facility] [place] [address] Performed By: #### 5 7021-8 #### [facility] CLIA [id number] [address] [place] [address]383 Basophils/100 WBC (Bld) 0.7 % Normal [facility] Comment on above: Order Comment: Speci men Type: BLOOD SPECIMEN Ordering Facility: [facility] Address: [address] [place] [address] Performed By: #### 5 7021-8 #### [facility] CLIA [id number] [address] [place] [address] 00014 Differential cell count method Nom (Bld) Auto Normal [facility] Comment on above: Order Comment: Speci men Type: BLOOD SPECIMEN Ordering Facility: [facility] Address: [address] [place] [address] Performed By: #### 5 7021-8 #### [facility] CLIA [id number] [address] [place] [address]01 Eosinophils (Bld) [#/Vol] 0.65 10*3/uL High <0.46 [facility] Comment on above: Order Comment: Speci men Type: BLOOD SPECIMEN Ordering Facility: [facility] Address: [address] [place] [address] Performed By: #### 5 7021-8 #### [facility] CLIA [id number] [address] [place] [address] 92963 Eosinophils/100 WBC (Bld) 11.5 % Normal [facility] Comment on above: Order Comment: Speci men Type: BLOOD SPECIMEN Ordering Facility: [facility] Address: [address] [place] [address] Performed By: #### 5 7021-8 #### [facility] CLIA [id number] [address] [place] [address] 77364 Erythrocyte distribution width (RBC) [Ratio] 12.4 % Normal 11.5-15.0 [facility] Comment on above: Order Comment: Speci men Type: BLOOD SPECIMEN Ordering Facility: [facility] Address: [address] [place] [address] Performed By: #### 5 7021-8 #### [facility] CLIA [id number] [address] [place] [address] 32843 Hematocrit (Bld) [Volume fraction] 34.3 % Low 39.0-51.0 [facility] Comment on above: Order Comment: Speci men Type: BLOOD SPECIMEN Ordering Facility: [facility] Address: [address] [place] [address] Performed By: #### 5 7021-8 #### [facility] CLIA [id number] [address] [place] [address]65 Hemoglobin (Bld) [Mass/Vol] 11.3 g/dL Low 13.0-17.0 [facility] Comment on above: Order Comment: Speci men Type: BLOOD SPECIMEN Ordering Facility: [facility] Address: [address] [place] [address] Performed By: #### 5 7021-8 #### [facility] CLIA [id number] [address] [place] [address] 25102 Immature granulocytes (Bld) [#/Vol] 10*3/uL Normal <0.10 [facility] Comment on above: Order Comment: Speci men Type: BLOOD SPECIMEN Ordering Facility: [facility] Address: [address] [place] [address] Performed By: #### 5 7021-8 #### [facility] CLIA [id number] [address] [place] [address] 22147 Immature granulocytes/100 WBC (Bld) 0.4 % Normal [facility] Comment on above: Order Comment: Speci men Type: BLOOD SPECIMEN Ordering Facility: [facility] Address: [address] [place] [address] Performed By: #### 5 7021-8 #### [facility] CLIA [id number] [address] [place] [address] 90123 Lymphocytes (Bld) [#/Vol] 0.85 10*3/uL Low 1.00-4.00 [facility] Comment on above: Order Comment: Speci men Type: BLOOD SPECIMEN Ordering Facility: [facility] Address: [address] [place] [address] Performed By: #### 5 7021-8 #### [facility] CLIA [id number] [address] [place] [address] 82028 Lymphocytes/100 WBC (Bld) 15.0 % Normal [facility] Comment on above: Order Comment: Speci men Type: BLOOD SPECIMEN Ordering Facility: [facility] Address: [address] [place], [place] [address] Performed By: #### 5 7021-8 #### [facility] CLIA [id number] [address] [place] [address] 21592 MCH (RBC) [Entitic mass] 30.7 pg Normal 26.0-34.0 [facility] Comment on above: Order Comment: Speci men Type: BLOOD SPECIMEN Ordering Facility: [facility] Address: [address] [place] [address] Performed By: #### 5 7021-8 #### [facility] CLIA [id number] [address] [place] [address] 30300 MCHC (RBC) [Mass/Vol] 32.9 g/dL Normal 30.5-36.0 [facility] Comment on above: Order Comment: Speci men Type: BLOOD SPECIMEN Ordering Facility: [facility] Address: [address] [place] [address] Performed By: #### 5 7021-8 #### [facility] CLIA [id number] [address] [place] [address] 01917 MCV (RBC) [Entitic vol] 93.2 fL Normal 80.0-100.0 [facility] Comment on above: Order Comment: Speci men Type: BLOOD SPECIMEN Ordering Facility: [facility] Address: [address] [place] [address] Performed By: #### 5 7021-8 #### [facility] CLIA [id number] [address] [place] [address] 32432 Monocytes (Bld) [#/Vol] 0.99 10*3/uL High <0.87 [facility] Comment on above: Order Comment: Speci men Type: BLOOD SPECIMEN Ordering Facility: [facility] Address: [address] [place] [address] Performed By: #### 5 7021-8 #### [facility] CLIA [id number] [address] [place] [address] 00865 Monocytes/100 WBC (Bld) 17.5 % Normal [facility] Comment on above: Order Comment: Speci men Type: BLOOD SPECIMEN Ordering Facility: [facility] Address: [address] [place] [address] Performed By: #### 5 7021-8 #### [facility] CLIA [id number] [address] [place] [address] 58248 Neutrophils (Bld) [#/Vol] 3.10 10*3/uL Normal 1.45-7.50 [facility] Comment on above: Order Comment: Speci men Type: BLOOD SPECIMEN Ordering Facility: [facility] Address: [address] [place] [address] Performed By: #### 5 7021-8 #### [facility] CLIA [id number] [address] [place] [address] 47993 Neutrophils/100 WBC (Bld) 54.9 % Normal [facility] Comment on above: Order Comment: Speci men Type: BLOOD SPECIMEN Ordering Facility: [facility] Address: [address] [place] [address] Performed By: #### 5 7021-8 #### [facility] CLIA [id number] [address] [place] [address] Nucleated RBC (Bld) [#/Vol] 10*3/uL Normal <0.01 [facility] Comment on above: Order Comment: Speci men Type: BLOOD SPECIMEN Ordering Facility: [facility] Address: [address] [place] [address] Performed By: #### 5 7021-8 #### [facility] CLIA [id number] [address] [place] [address] Nucleated RBC/100 WBC (Bld) [Ratio] 0.0 /100 WBC Normal [facility] Comment on above: Order Comment: Speci men Type: BLOOD SPECIMEN Ordering Facility: [facility] Address: [address] [place] [address] Performed By: #### 5 7021-8 #### [facility] CLIA [id number] [address] [place] [address] 22578 Platelet mean volume (Bld) [Entitic vol] 8.7 fL Low 9.0-12.7 [facility] Comment on above: Order Comment: Speci men Type: BLOOD SPECIMEN Ordering Facility: [facility] Address: [address] [place] [address] Performed By: #### 5 7021-8 #### [facility] CLIA [id number] [address] [place] [address] 93678 Platelets (Bld) [#/Vol] 155 10*3/uL Normal 150-400 [facility] Comment on above: Order Comment: Speci men Type: BLOOD SPECIMEN Ordering Facility: [facility] Address: [address] [place] [address] Performed By: #### 5 7021-8 #### [facility] CLIA [id number] [address] [place] [address] RBC (Bld) [#/Vol] 3.68 10*6/uL Low 4.20-6.00 [facility] Comment on above: Order Comment: Speci men Type: BLOOD SPECIMEN Ordering Facility: [facility] Address: [address] [place] [address] Performed By: #### 5 7021-8 #### [facility] CLIA [id number] [address] [place] [address] WBC (Bld) [#/Vol] 5.65 10*3/uL Normal 3.70-11.00 [facility] Comment on above: Order Comment: Speci men Type: BLOOD SPECIMEN Ordering Facility: [facility] Address: [address] [place] [address] Performed By: #### 5 7021-8 #### [facility] CLIA [id number] [address] [place] [address] CNOVon 07-01-2024 CNOV Office Visit (RADTSA ) KENNEDY KONG ([id number]) 1935 M Date Time Provider Department 07/01/24 10:45 AM Suzanne GRAJEDA During your visit today, we recorded the following information about you: Suzanne Grajeda MD 07/09/2024 12:51 PM Signed Radiation Oncology - Follow Up Note PATIENT [...] fractions ELAPSED TIME: 42 days. INTERVAL HISTORY: Overall doing better. Having some continued issues with alternating diarrhea constipation. Denies pain or bleeding. Denies hematuria or dysuria. ALLERGIES Allergen Reactions Amoxicillin Other: See Comments Pt gets sores in mouth MEDICATIONS: Catheter ([facility] MALE EXTERNAL CATH) misc 1 Device once daily. CARROLL CHEWABLE ASPIRIN 81 mg chewable tablet [...] mg cap Take by mouth once daily. REVIEW OF SYSTEMS: GENERAL: Negative [...] ) BSA 2.03 BMI 26.24 Temp 36.2 ?C (97.2 ?F) Pulse 70 Resp 16 BP 113/65 SpO2 [...] cancer, high-grade locally advanced T2b/T3b N0 M0 Continue surveillance cystoscopy with Dr. Dietrich. Still having some episodic bowel issues somewhat chronic from prior surgical procedure. Has scans scheduled in 3 months. Will plan to see him back at that time. Signed by: Suzanne Grajeda MD cc: Lesa Estrella ([place]) [address] [place] [address] No referring provider defined for this encounter. 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 - enteric contrast (will be provided with radiology test) For CT CHESTABD/PEL W IVCON Routine order Administer, As Directed One Time Only, via Oral, Rectal, both Oral and Rectal, Enteric Tube, Stoma or Indwelling Catheter, Enteric Contrast as designated per enteric contrast guidelines - Catheter ([facility] MALE EXTERNAL CATH) misc 1 Device once daily. - CARROLL CHEWABLE ASPIRIN 81 mg chewable tablet CHEW 1 TABLET ONCE DAILY - carvedilol (COREG) 6.25 mg tablet Take 6.25 mg by mouth two times a day with meals. - clopidogrel (PLAVIX) 75 mg tablet Take 75 mg by mouth once daily. - rosuvastatin (CRESTOR) 40 mg tablet Take 40 mg by mouth once daily. - tamsulosin (FLOMAX) 0.4 mg Take 0.4 mg by mouth once daily. - Fish Oil-DHA-EPA 1,20 (more content not included)... Normal [facility] CNOVSPon 07-01-2024 CNOVSP Visit (SP) Office (HEMASA) KENNEDY KONG ([id number]) 1935 M Date Time Provider Department 07/01/24 10:30 AM EUGENE CHAPARRO During your visit today, we recorded the following information about you: Temperature Pulse Respiration Blood pressure 97.2 degrees 67/minute 16/minute 116/71 Weight Height 85 kg 1.784 m Orly Garcia MA 07/01/2024 10:15 AM Addendum Patient states that his left leg is swollen, he notices it more now that he is off Plavix, he wonders if they Plavix was helping his circulation. Patient also states he had a scope, when the catheter was placed his bowel movements have been normal usually they are loose. He took out the catheter this morning. He wonders if there is a prostate issue happening. SUDARSHAN Ware Vivek, MD 07/01/2024 8:24 PM Signed NAME: Kennedy Kong CLINIC NO.: [id number] DATE OF SERVICE: July 01, 2024 (Deann) Some elements in this clinic note that are critical to medical decision making have been carefully reviewed and included from a prior clinic note dated: March 25, 2024 (Deann) Referring Provider: Dr. Leigh Grajeda Additional Clinicians involved in Kennedy Kong's care: Lesa Estrella, Avel Heath, Kylie Dietrich CC: Follow up for treatment. DIAGNOSIS: High grade muscle invasive bladder cancer ASSESSMENT: 89 year old man with a history of [...] December 05, 2023, was identified as having abjm-alqwk-hmgzrd invasive papillary bladder cancer and has been referred to Radiation oncology and subsequently to me for an opinion regarding chemotherapy. 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 He would likely tolerate low dose weekly cisplatin for radiosensitizing given appropriate supportive therapy. Will Coordinate with Dr. Grajeda. PLAN: Obtain cystoscopy records from [facility] CT [facility] with labs in 3 months RTC 1 week after - HPI: CASE HISTORY: Reverse Chronological Order 01/20/2024-03/02/2024 - Radiation to bladder 01/20/2024-02/19/2024 - Weekly Cisplatin 20 mg/m2 started with radiation (total dose of Cisplatin was 400mg/m2) 01/08/2024 - CT Chest: Subcentimeter noncalcified and [...] simple left renal cyst. Essentially unremarkable sonographic (more content not included)... Normal [facility] Comprehensive metabolic 2000 panelon 07-01-2024 Albumin [Mass/Vol] 3.9 g/dL Normal 3.9-4.9 [facility] Comment on above: Order Comment: Speci men Type: BLOOD SPECIMENOrdering Facility: [facility] Address: [address] [place] [address] Performed By: #### 2 4323-8 ####[facility] [id number] [place] [address] ALP [Catalytic activity/Vol] 54 U/L Normal 38-113 [facility] Comment on above: Order Comment: Speci men Type: BLOOD SPECIMENOrdering Facility: [facility] Address: [address] [place] [address] Performed By: #### 2 4323-8 ####[facility] [id number] [place] [address] ALT [Catalytic activity/Vol] 10 U/L Normal 10-54 [facility] Comment on above: Order Comment: Speci men Type: BLOOD SPECIMENOrdering Facility: [facility] Address: [address] [place] [address] Performed By: #### 2 4323-8 ####[facility] [id number] [place] [address] Anion gap [Moles/Vol] 9 mmol/L Normal 8-15 [facility] Comment on above: Order Comment: Speci men Type: BLOOD SPECIMENOrdering Facility: [facility] Address: [address] [place] [address] Performed By: #### 2 4323-8 ####[facility] [id number] [place] [address] AST [Catalytic activity/Vol] 12 U/L Low 14-40 [facility] Comment on above: Order Comment: Speci men Type: BLOOD SPECIMENOrdering Facility: [facility] Address: [address] [place] [address] Performed By: #### 2 4323-8 ####[facility] [id number] [place] [address] Bilirubin [Mass/Vol] 0.3 mg/dL Normal 0.2-1.3 [facility] Comment on above: Order Comment: Speci men Type: BLOOD SPECIMENOrdering Facility: [facility] Address: [address] [place] [address] Performed By: #### 2 4323-8 ####[facility] [id number] [place] [address] Calcium [Mass/Vol] 9.3 mg/dL Normal 8.5-10.2 [facility] Comment on above: Order Comment: Speci men Type: BLOOD SPECIMENOrdering Facility: [facility] Address: [address] [place] [address] Performed By: #### 2 4323-8 ####[facility] [id number] [place] [address] Chloride [Moles/Vol] 106 mmol/L Normal 98-107 [facility] Comment on above: Order Comment: Speci men Type: BLOOD SPECIMENOrdering Facility: [facility] Address: [address] [place] [address] Performed By: #### 2 4323-8 ####[facility] LABCLIA [id number] [place] [address] CO2 [Moles/Vol] 26 mmol/L Normal 22-30 [facility] Comment on above: Order Comment: Speci men Type: BLOOD SPECIMENOrdering Facility: [facility] Address: [address] [place] [address] Performed By: #### 2 4323-8 ####[facility] LABCLIA [id number] [place] [address] Creatinine [Mass/Vol] 1.18 mg/dL Normal 0.73-1.22 [facility] Comment on above: Order Comment: Speci men Type: BLOOD SPECIMENOrdering Facility: [facility] Address: [address] [place] [address] Performed By: #### 2 4323-8 ####[facility] LABCLIA [id number] [place] [address] Creatinine and Glomerular filtration rate.predicted panel (S/P/Bld) 59 mL/min/1.73m??? Low >=60 [facility] Comment on above: Order Comment: Speci men Type: BLOOD SPECIMENOrdering Facility: [facility] Address: [address] [place] [address] Result Comment: Cristina mated Glomerular Filtration Rate [...] actual GFR. Performed By: #### 2 4323-8 ####[facility] LABCLIA [id number] [place] [address] Glucose [Mass/Vol] 107 mg/dL High 74-99 [facility] Comment on above: Order Comment: Speci men Type: BLOOD SPECIMENOrdering Facility: [facility] Address: [address] [place] [address] Result Comment: The [place] Diabetes Association (ADA) provides guidance for cutoff [...] Standards of Medical Care in Diabetes 2016, [place] [employer] Association. Diabetes Care. 2016.39(Suppl 1). Performed By: #### 2 4323-8 ####[facility] LABCLIA [id number] [place] [address] Potassium [Moles/Vol] 4.6 mmol/L Normal 3.7-5.1 [facility] Comment on above: Order Comment: Speci men Type: BLOOD SPECIMENOrdering Facility: [facility] Address: [address] [place] [address] Performed By: #### 2 4323-8 ####[facility] LABCLIA [id number] [place] [address] Protein [Mass/Vol] 6.0 g/dL Low 6.3-8.0 [facility] Comment on above: Order Comment: Speci men Type: BLOOD SPECIMENOrdering Facility: [facility] Address: [address] [place] [address] Performed By: #### 2 4323-8 ####[facility] LABCLIA [id number] [place] [address] Sodium [Moles/Vol] 141 mmol/L Normal 136-144 [facility] Comment on above: Order Comment: Speci men Type: BLOOD SPECIMENOrdering Facility: [facility] Address: [address] [place] [address] Performed By: #### 2 4323-8 ####[facility] LABCLIA [id number] [place] [address] Urea nitrogen [Mass/Vol] 31 mg/dL High 9-24 [facility] Comment on above: Order Comment: Speci men Type: BLOOD SPECIMENOrdering Facility: [facility] Address: [address] [place] [address] Performed By: #### 2 4323-8 ####[facility] LABCLIA [id number] [place] [address] Eosinophils/100 WBC Auto (Bl d)on 07-01-2024 Eosinophils/100 WBC (Bld) 11.5 % [facility] Erythrocyte distribution wid th Auto (RBC) [Ratio]on 07-01-2024 Erythrocyte distribution width (RBC) [Ratio] 12.4 % 11.5-15.0 [facility] Hematocrit Auto (Bld) [Volum e fraction]on 07-01-2024 Hematocrit (Bld) [Volume fraction] 34.3 % Low 39.0-51.0 [facility] Hemoglobin [Mass/volume] in Bloodon 07-01-2024 Hemoglobin (Bld) [Mass/Vol] 11.3 g/dL Low 13.0-17.0 [facility] Laboratory - Chemistry and C hemistry - challengeon 07-01-2024 Albumin [Mass/Vol] 3.9 g/dL 3.9-4.9 [facility] ALP [Catalytic activity/Vol] 54 U/L 38-113 [facility] ALT [Catalytic activity/Vol] 10 U/L 10-54 [facility] AST [Catalytic activity/Vol] 12 U/L Low 14-40 [facility] Bilirubin [Mass/Vol] 0.3 mg/dL 0.2-1.3 [facility] Calcium [Mass/Vol] 9.3 mg/dL 8.5-10.2 [facility] Chloride [Moles/Vol] 106 mmol/L 98-107 [facility] CO2 [Moles/Vol] 26 mmol/L 22-30 [facility] Creatinine [Mass/Vol] 1.18 mg/dL 0.73-1.22 [facility] Glucose [Mass/Vol] 107 mg/dL High 74-99 [facility] Comment on above: The [place] Diabete s Association (ADA) provides guidance for [...] Standards of Medical Care in Diabetes 2016, [place] Diabetes Association. Diabetes Care. 2016.39(Suppl 1). Potassium [Moles/Vol] 4.6 mmol/L 3.7-5.1 [facility] Sodium [Moles/Vol] 141 mmol/L 136-144 [facility] Urea nitrogen [Mass/Vol] 31 mg/dL High 9-24 [facility] Laboratory - Hematology and Cell countson 07-01-2024 Eosinophils (Bld) [#/Vol] 0.65 10*3/uL High <0.46 [facility] Immature granulocytes/100 WBC (Bld) 0.4 % [facility] Leukocytes [#/volume] correc ramona for nucleated erythrocytes in Blood by Automated counon 07-01-2024 WBC corrected for nucl RBC Auto (Bld) [#/Vol] 5.65 k/uL 3.70-11.00 [facility] Lymphocytes Auto (Bld) [#/Vo l]on 07-01-2024 Lymphocytes (Bld) [#/Vol] 0.85 10*3/uL Low 1.00-4.00 [facility] Lymphocytes/100 WBC Auto (Bl d)on 07-01-2024 Lymphocytes/100 WBC (Bld) 15.0 % [facility] MCH Auto (RBC) [Entitic mass ]on 07-01-2024 MCH (RBC) [Entitic mass] 30.7 pg 26.0-34.0 [facility] MCHC Auto (RBC) [Mass/Vol]on 07-01-2024 MCHC (RBC) [Mass/Vol] 32.9 g/dL 30.5-36.0 [facility]ir [facility] MCV Auto (RBC) [Entitic vol] on 07-01-2024 MCV (RBC) [Entitic vol] 93.2 fL 80.0-100.0 F [facility] Monocytes Auto (Bld) [#/Vol] on 07-01-2024 Monocytes (Bld) [#/Vol] 0.99 10*3/uL High <0.87 [facility] Monocytes/100 WBC Auto (Bld) on 07-01-2024 Monocytes/100 WBC (Bld) 17.5 % F [facility] Neutrophils Auto (Bld) [#/Vo l]on 07-01-2024 Neutrophils (Bld) [#/Vol] 3.10 10*3/uL 1.45-7.50 [facility] Neutrophils/100 WBC Auto (Bl d)on 07-01-2024 Neutrophils/100 WBC (Bld) 54.9 % [facility] No Panel Informationon 07-01 Estimated GFR (CKD-EPI) 59 mL/min/1.73m??? Low >=60 [facility] Comment on above: Estimated Glomerular Filtration [...] Immature Granulocyte # (Auto) <0.03 k/uL <0.10 [facility] Nucleated RBC Auto (Bld) [#/ Vol]on 07-01-2024 Nucleated RBC (Bld) [#/Vol] 10*3/uL <0.01 [facility] Nucleated erythrocytes [Pres ence] in Blood by Automated counton 07-01-2024 Nucleated RBC Auto Ql (Bld) 0.0 /100{WBC} [facility] Platelet mean volume Auto (B ld) [Entitic vol]on 07-01-2024 Platelet mean volume (Bld) [Entitic vol] 8.7 fL Low 9.0-12.7 [facility] Platelets Auto (Bld) [#/Vol] on 07-01-2024 Platelets (Bld) [#/Vol] 155 10*3/uL 150-400 [facility] Protein [Mass/volume] in Ser um or Plasmaon 07-01-2024 Protein [Mass/Vol] 6.0 g/dL Low 6.3-8.0 [facility] RBC Auto (Bld) [#/Vol]on RBC (Bld) [#/Vol] 3.68 10*6/uL Low 4.20-6.00 [facility] Serum or plasma anion gap de terminationon 07-01-2024 Anion gap [Moles/Vol] 9 mmol/L 8-15 [facility] Fish and Urine Cyt o (P4 Labs)on 06-23-2024 [facility] Method of Extraction Voided Normal [facility] Comment on above: Performed By: #### 1 [id number] #### [facility] [address] [place] [address] [facility] Number of Jars 1 Invalid Interpretation Code [facility] Comment on above: Performed By: #### 1 [id number] #### [facility] [address] [place] [address] [facility] Specimen Urine Normal [facility] Comment on above: Performed By: #### 1 [id number] #### [facility] [address] [place] [address] [facility] Type of Service Technical Only Normal [facility] Comment on above: Performed By: #### 1 [id number] #### [facility] [address] [place] [address] Laboratory - Chemistry and C hemistry - challengeon 06-11-2024 Bilirubin Ql (U) Negative NEGATIVE [facility] Glucose (U) [Mass/Vol] Negative NEGATIVE [facility] Ketones Ql (U) TRACE mg/dL Abnormal NEGATIVE [facility] pH (U) 5.5 [pH] 5.0-9.0 [facility] Specific gravity (U) [Rel density] >=1.030 Abnormal 1.005-1.025 [facility] Urobilinogen Qn (U) 0.2 {Dae'U}/dL 0.2-1.0 [facility] Laboratory - Specimen inform ationon 06-11-2024 Appearance (U) CLEAR CLEAR [facility] Color (U) DK. YELLOW YELLOW [facility] Laboratory - Urinalysison Leukocyte esterase Test strip Ql (U) Negative NEGATIVE [facility] Mucus Ql (Urine sed) MODERATE Abnormal NONE SEEN [facility] Nitrite Ql (U) Negative NEGATIVE [facility] Protein Ql (U) Negative NEG/TRACE [facility] No Panel Informationon 06-11 Urine Bacteria NONE SEEN #/HPF NONE SEEN [facility] Urine Culture Reflexed ALREADY ORDERED [facility] Urine Occult Blood Negative NEGATIVE [facility] Urine RBC 2-5 #/HPF Abnormal 0-2 [facility] Urine Squamous Epithelial Cells FEW #/LPF Abnormal NONE/RARE [facility] Urine WBC 0-2 #/HPF Abnormal NONE SEEN [facility] Cholesterol in LDL Calc [Mas s/Vol]on 05-25-2024 Cholesterol in LDL [Mass/Vol] 28.0 mg/dL [facility] Comment on above: <100 mg/dl [id number] 0-129 mg/dl NEAR OR ABOVE [id number] mg/dl BORDERLINE [id number] mg/dl HIGH>190 mg/dl VERY HIGH Cholesterol in VLDL Calc [Ma ss/Vol]on 05-25-2024 Cholesterol in VLDL [Mass/Vol] 6.8 mg/dL [facility] Laboratory - Chemistry and C hemistry - challengeon 05-25-2024 Cholesterol [Mass/Vol] 101 mg/dL <=200 [facility] Cholesterol in HDL [Mass/Vol] 67 mg/dL High 40-60 [facility] Comment on above: > or =60 mg/dl - LOW CARDIOVASCULAR RISK<40 mg/dl - HIGH CARDIOVASCULAR RISK Triglyceride [Mass/Vol] 34 mg/dL <=150 F [facility] Serum or plasma total choles terol/high density lipoprotein (HDL) cholesterol mass alejandro 08-05-2024 Cholesterol.total/Drea sterol in HDL [Mass ratio] 1.5 {ratio} [facility] Comment on above: 3.3 - 4.4 LOW RISK4. 4 - 7.1 AVERAGE RISK7.1 - 11.0 MODERATE RISK>11.0 HIGH RISK Ambulatory Visit Summaryon 0 04-20-2024 Ambulatory Visit Summary Ambulatory Visit Summary KENNEDY KONG :1935 Visit Date:04/20/2024 Ambulatory Visit Instructions Your Diagnosis Recurrent bladder papillary carcinoma Urge incontinence BPH with obstruction/lower urinary tract symptoms Hydrocele Your Care Team Attending Physician - WILY CHOI, Kylie Restrepo Primary Care Physician - ELSA ESTRELLA DO This Is Your Medications List [...] Schedule the Following Appointments Follow Up with WILY CHOI, Kylie Restrepo, URL When: Comments: cysto due in June Where: [facility] [address] , [place] [address]- [phone] Medications What How Much When Instructions New mirabegron (Myrbetriq 50 mg oral tablet, extended release) 1 Tablets By Mouth Every day Refills: 11 Pickup at [facility]/pharmacy #[id number] Unchanged tamsulosin (Flomax 0.4 mg Cap) 1 [...] physician if questions or concerns Pharmacy Information [facility]/pharmacy #[id number]: [address], [place] [id number] [phone] Allergies No Known Allergies Problems Ongoing - [...] including vitamins, herbs, eye drops, creams, and rbmc-elo-gfwmhqi medicines. (more content not included)... Normal [facility] Patient Letter FTMCon 2023 Patient Letter [facility] Patient Letter [facility] April 20, 2024 KENNEDY KONG [id number] [address] : 1935 To : Financial assistance for cancer treatment, Kennedy Kong, : 1935 is a current urology patient of [facility] who is getting bladder cancer treatments. Please consider helping this patient with financial services that are not covered by the patients insurance. Thank you for any and all assistance you can give this patient. Please feel free to contact our office with any questions or concerns. Sincerely, Kylie Dietrich M.D., F.A.C.S. [facility] [address] [place] [phone] Valid Dates :04/20/24- 04/20/25 Normal [facility] Basophils Auto (Bld) [#/Vol] on 03-25-2024 Basophils (Bld) [#/Vol] 10*3/uL <0.11 F [facility] Basophils/100 WBC Auto (Bld) on 03-25-2024 Basophils/100 WBC (Bld) 0.4 % F [facility] Blood manual differential co mment interpretation narrativeon 03-25-2024 Manual differential comment Joshua (Bld) [Interp] Auto [facility] Eosinophils/100 WBC Auto (Bl d)on 03-25-2024 Eosinophils/100 WBC (Bld) 4.3 % [facility] Erythrocyte distribution wid th Auto (RBC) [Ratio]on 03-25-2024 Erythrocyte distribution width (RBC) [Ratio] 14.6 % 11.5-15.0 [facility] Hematocrit Auto (Bld) [Volum e fraction]on 03-25-2024 Hematocrit (Bld) [Volume fraction] 36.3 % Low 39.0-51.0 [facility] Hemoglobin [Mass/volume] in Bloodon 03-25-2024 Hemoglobin (Bld) [Mass/Vol] 11.8 g/dL Low 13.0-17.0 [facility] Laboratory - Chemistry and C hemistry - challengeon 03-25-2024 Albumin [Mass/Vol] 3.8 g/dL Low 3.9-4.9 [facility] ALP [Catalytic activity/Vol] 53 U/L 38-113 [facility] ALT [Catalytic activity/Vol] 13 U/L 10-54 [facility] AST [Catalytic activity/Vol] 15 U/L 14-40 [facility] Bilirubin [Mass/Vol] 0.2 mg/dL 0.2-1.3 [facility] Calcium [Mass/Vol] 9.2 mg/dL 8.5-10.2 [facility] Chloride [Moles/Vol] 112 mmol/L High 98-107 [facility] CO2 [Moles/Vol] 23 mmol/L 22-30 [facility] Creatinine [Mass/Vol] 1.19 mg/dL 0.73-1.22 [facility] Glucose [Mass/Vol] 135 mg/dL High 74-99 [facility] Comment on above: The [place] Diabete s Association (ADA) provides guidance for [...] Standards of Medical Care in Diabetes 2016, [place] Diabetes Association. Diabetes Care. 2016.39(Suppl 1). Potassium [Moles/Vol] 4.8 mmol/L 3.7-5.1 [facility] Sodium [Moles/Vol] 143 mmol/L 136-144 [facility] Urea nitrogen [Mass/Vol] 34 mg/dL High 9- [facility] Laboratory - Hematology and Cell countson 03-25-2024 Eosinophils (Bld) [#/Vol] 0.23 10*3/uL <0.46 [facility] Immature granulocytes/100 WBC (Bld) 0.2 % [facility] Leukocytes [#/volume] correc ramona for nucleated erythrocytes in Blood by Automated counon 03-25-2024 WBC corrected for nucl RBC Auto (Bld) [#/Vol] 5.39 k/uL 3.70-11.00 [facility] Lymphocytes Auto (Bld) [#/Vo l]on 03-25-2024 Lymphocytes (Bld) [#/Vol] 0.90 10*3/uL Low 1.00-4.00 [facility] Lymphocytes/100 WBC Auto (Bl d)on 03-25-2024 Lymphocytes/100 WBC (Bld) 16.7 % [facility] MCH Auto (RBC) [Entitic mass ]on 03-25-2024 MCH (RBC) [Entitic mass] 30.3 pg 26.0-34.0 [facility] MCHC Auto (RBC) [Mass/Vol]on 03-25-2024 MCHC (RBC) [Mass/Vol] 32.5 g/dL 30.5-36.0 [facility] MCV Auto (RBC) [Entitic vol] on 03-25-2024 MCV (RBC) [Entitic vol] 93.3 fL 80.0-100.0 F [facility] Monocytes Auto (Bld) [#/Vol] on 03-25-2024 Monocytes (Bld) [#/Vol] 0.88 10*3/uL High <0.87 [facility] Monocytes/100 WBC Auto (Bld) on 03-25-2024 Monocytes/100 WBC (Bld) 16.3 % [facility] Neutrophils Auto (Bld) [#/Vo l]on 03-25-2024 Neutrophils (Bld) [#/Vol] 3.35 10*3/uL 1.45-7.50 [facility] Neutrophils/100 WBC Auto (Bl d)on 03-25-2024 Neutrophils/100 WBC (Bld) 62.1 % [facility] No Panel Informationon 03-25 Estimated GFR (CKD-EPI) 59 mL/min/1.73m??? Low >=60 [facility] Comment on above: Estimated Glomerular Filtration [...] Immature Granulocyte # (Auto) <0.03 k/uL <0.10 [facility] Nucleated RBC Auto (Bld) [#/ Vol]on 03-25-2024 Nucleated RBC (Bld) [#/Vol] 10*3/uL <0.01 [facility] Nucleated erythrocytes [Pres ence] in Blood by Automated counton 03-25-2024 Nucleated RBC Auto Ql (Bld) 0.0 /100{WBC} [facility] Platelet mean volume Auto (B ld) [Entitic vol]on 03-25-2024 Platelet mean volume (Bld) [Entitic vol] 8.6 fL Low 9.0-12.7 [facility] Platelets Auto (Bld) [#/Vol] on 03-25-2024 Platelets (Bld) [#/Vol] 165 10*3/uL 150-400 [facility] Comment on above: No clot detected. No clot detected. Protein [Mass/volume] in Ser um or Plasmaon 03-25-2024 Protein [Mass/Vol] 6.2 g/dL Low 6.3-8.0 [facility] RBC Auto (Bld) [#/Vol]on RBC (Bld) [#/Vol] 3.89 10*6/uL Low 4.20-6.00 [facility] Serum or plasma anion gap de terminationon 03-25-2024 Anion gap [Moles/Vol] 8 mmol/L 8- [facility] C Urineon 03-06-2024 Bacteria identified Cx Nom (U) Microbiology PROCEDURE: Urine Culture [R1] SOURCE: U Random BODY SITE: COLLECTED DATE/TIME: 03/04/2024 09:46 EDT RECEIVED DATE/TIME: 03/04/2024 18:18 EDT START DATE/TIME: 03/04/2024 18:18 EDT FREE TEXT SOURCE: [employer], M60A2 ARMOR [employer]WMAN-C, [employer], M60A2 [employer]WMAN-C, Sridevi X Sridevi X FINAL REPORTS Final Report [] Verified Date/Time: 03/06/2024 08:32 EDT 3,000 cfu/ml Mixed skin contaminants Performing Locations R1: [facility], [address] [place] [address], [id number] [place] [address], [facility] Comment on above: Performed By: #### 2 [id number] #### [facility] [address] [place] [address] Bacteria identified Cx Nom (U) Microbiology PROCEDURE: Urine Culture [R1] SOURCE: U Random BODY SITE: COLLECTED DATE/TIME: 03/04/2024 09:46 EDT RECEIVED DATE/TIME: 03/04/2024 18:18 EDT START DATE/TIME: 03/04/2024 18:18 EDT FREE TEXT SOURCE: [employer], M60A2 [employer]-C, [employer], M60A2 [employer]-C, Sridevi X Sridevi X FINAL REPORTS Final Report [] Verified Date/Time: 03/06/2024 08:32 EDT 3,000 cfu/ml Mixed skin contaminants Performing Locations R1: This test was performed at: [facility] [employer], [address] [place] [address], [address], [facility] Comment on above: Performed By: #### 2 [id number] #### [facility] [address] [place] [address] Basophils Auto (Bld) [#/Vol] on 02-26-2024 Basophils (Bld) [#/Vol] 10*3/uL <0.11 F [facility] Basophils/100 WBC Auto (Bld) on 02-26-2024 Basophils/100 WBC (Bld) 0.4 % F [facility] Blood manual differential co mment interpretation narrativeon 02-26-2024 Manual differential comment Joshua (Bld) [Interp] Auto [facility] Eosinophils/100 WBC Auto (Bl d)on 02-26-2024 Eosinophils/100 WBC (Bld) 4.7 % [facility] Erythrocyte distribution wid th Auto (RBC) [Ratio]on 02-26-2024 Erythrocyte distribution width (RBC) [Ratio] 14.1 % 11.5-15.0 [facility] Hematocrit Auto (Bld) [Volum e fraction]on 02-26-2024 Hematocrit (Bld) [Volume fraction] 38.3 % 39.0-51.0 [facility] Hemoglobin [Mass/volume] in Bloodon 02-26-2024 Hemoglobin (Bld) [Mass/Vol] 12.3 g/dL 13.0-17.0 [facility] Laboratory - Chemistry and C hemistry - challengeon 02-26-2024 Albumin [Mass/Vol] 3.7 g/dL 3.9-4.9 [facility] ALP [Catalytic activity/Vol] 57 U/L 38-113 [facility] ALT [Catalytic activity/Vol] 15 U/L 10-54 [facility] AST [Catalytic activity/Vol] 14 U/L 14-40 [facility] Bilirubin [Mass/Vol] 0.2 mg/dL 0.2-1.3 [facility] Calcium [Mass/Vol] 9.3 mg/dL 8.5-10.2 [facility] Chloride [Moles/Vol] 106 mmol/L 97-105 [facility] CO2 [Moles/Vol] 27 mmol/L 22-30 [facility] Creatinine [Mass/Vol] 1.10 mg/dL 0.73-1.22 [facility] Glucose [Mass/Vol] 93 mg/dL 74-99 [facility] Comment on above: The [place] Diabete s Association (ADA) provides guidance for [...] Standards of Medical Care in Diabetes 2016, [place] Diabetes Association. Diabetes Care. 2016.39(Suppl 1). Potassium [Moles/Vol] 4.4 mmol/L 3.7-5.1 [facility] Sodium [Moles/Vol] 141 mmol/L 136-144 [facility] Urea nitrogen [Mass/Vol] 21 mg/dL 9-24 [facility] - Hematology and Cell countson 02-26-2024 Eosinophils (Bld) [#/Vol] 0.21 10*3/uL <0.46 [facility] Immature granulocytes/100 WBC (Bld) 0.4 % [facility] Leukocytes [#/volume] correc ramona for nucleated erythrocytes in Blood by Automated counon 02-26-2024 WBC corrected for nucl RBC Auto (Bld) [#/Vol] 4.48 k/uL 3.70-11.00 [facility] Lymphocytes Auto (Bld) [#/Vo l]on 02-26-2024 Lymphocytes (Bld) [#/Vol] 0.66 10*3/uL 1.00-4.00 [facility] Lymphocytes/100 WBC Auto (Bl d)on 02-26-2024 Lymphocytes/100 WBC (Bld) 14.7 % [facility] MCH Auto (RBC) [Entitic mass ]on 02-26-2024 MCH (RBC) [Entitic mass] 29.7 pg 26.0-34.0 [facility] MCHC Auto (RBC) [Mass/Vol]on 02-26-2024 MCHC (RBC) [Mass/Vol] 32.1 g/dL 30.5-36.0 [facility] MCV Auto (RBC) [Entitic vol] on 02-26-2024 MCV (RBC) [Entitic vol] 92.5 fL 80.0-100.0 F [facility] Monocytes Auto (Bld) [#/Vol] on 02-26-2024 Monocytes (Bld) [#/Vol] 0.71 10*3/uL <0.87 [facility] Monocytes/100 WBC Auto (Bld) on 02-26-2024 Monocytes/100 WBC (Bld) 15.8 % F [facility] Neutrophils Auto (Bld) [#/Vo l]on 02-26-2024 Neutrophils (Bld) [#/Vol] 2.86 10*3/uL 1.45-7.50 [facility] Neutrophils/100 WBC Auto (Bl d)on 02-26-2024 Neutrophils/100 WBC (Bld) 64.0 % [facility] No Panel Informationon 02-25 Estimated GFR (CKD-EPI) 65 mL/min/1.73m??? >=60 [facility] Comment on above: Estimated Glomerular Filtration [...] Immature Granulocyte # (Auto) <0.03 k/uL <0.10 [facility] Nucleated RBC Auto (Bld) [#/ Vol]on 02-26-2024 Nucleated RBC (Bld) [#/Vol] 10*3/uL <0.01 [facility] Nucleated erythrocytes [Pres ence] in Blood by Automated counton 02-26-2024 Nucleated RBC Auto Ql (Bld) 0.0 /100{WBC} [facility] Platelet mean volume Auto (B ld) [Entitic vol]on 02-26-2024 Platelet mean volume (Bld) [Entitic vol] 8.7 fL 9.0-12.7 [facility] Platelets Auto (Bld) [#/Vol] on 02-26-2024 Platelets (Bld) [#/Vol] 155 10*3/uL 150-400 [facility] Protein [Mass/volume] in Ser um or Plasmaon 02-26-2024 Protein [Mass/Vol] 6.2 g/dL 6.3-8.0 [facility] RBC Auto (Bld) [#/Vol]on RBC (Bld) [#/Vol] 4.14 10*6/uL 4.20-6.00 [facility] Serum or plasma anion gap de terminationon 02-26-2024 Anion gap [Moles/Vol] 8 mmol/L 9-18 [facility] Basic metabolic 2000 panelOr dered By: Julio Way on 02-19-2024 Anion gap [Moles/Vol] 5 mmol/L Low 9 - 18 mmol/L [facility] Calcium [Mass/Vol] 8.3 mg/dL Low 8.5 - 10. 2 mg/dL [facility] Chloride [Moles/Vol] 107 mmol/L High 97 - 10 5 mmol/L [facility] CO2 [Moles/Vol] 25 mmol/L 22 - 30 mmol/L [facility] Creatinine [Mass/Vol] 0.90 mg/dL 0.73 - 1.22 mg/dL [facility] GFR/1.73 sq M.predicted among non-blacks MDRD (S/P/Bld) [Vol rate/Area] 83 mL/min/{1.73_m2} - PINF [facility] Comment on above: Estimated Glomerular [...] 114 mg/dL High 74 - 99 mg/dL [facility] Comment on above: The [place] Diabete s Association (ADA) provides guidance for [...] Standards of Medical Care in Diabetes 2016, [place] [employer] Association. Diabetes Care. 2016.39(Suppl 1). Interpretation and review of laboratory results Abnormal [facility] Potassium [Moles/Vol] 4.4 mmol/L 3.7 - 5.1 mmol/L [facility] Sodium [Moles/Vol] 137 mmol/L 136 - 144 mmol/L [facility] Urea nitrogen [Mass/Vol] 20 mg/dL 9 - 24 mg/dL [facility] Basophils Auto (Bld) [#/Vol] on 02-19-2024 Basophils (Bld) [#/Vol] 10*3/uL <0.11 F [facility] Basophils/100 WBC Auto (Bld) on 02-19-2024 Basophils/100 WBC (Bld) 0.5 % F [facility] Blood manual differential co mment interpretation narrativeon 02-19-2024 Manual differential comment Joshua (Bld) [Interp] Auto [facility] CBC W Auto Differential pane l (Bld)on 02-19-2024 Basophils (Bld) [#/Vol] [facility] C [facility] Basophils/100 WBC (Bld) 0.5 % C [facility] Differential cell count method Nom (Bld) Auto [facility] Eosinophils (Bld) [#/Vol] 0.17 10*3/uL [facility] Eosinophils/100 WBC (Bld) 3.9 % [facility] Erythrocyte distribution width (RBC) [Ratio] 13.8 % 11.5 - 15.0 % [facility] Hematocrit (Bld) [Volume fraction] 35.3 % Low 39.0 - 51.0 % [facility] Hemoglobin (Bld) [Mass/Vol] 11.4 g/dL Low 13.0 - 17.0 g/dL [facility] Immature granulocytes (Bld) [#/Vol] [facility] Immature granulocytes/100 WBC (Bld) 0.2 % [facility] Interpretation and review of laboratory results Abnormal [facility] Lymphocytes (Bld) [#/Vol] 0.76 10*3/uL Low [facility] Lymphocytes/100 WBC (Bld) 17.3 % [facility] MCH (RBC) [Entitic mass] 29.8 pg 26.0 - 34.0 pg [facility] MCHC (RBC) [Mass/Vol] 32.3 g/dL 30.5 - 36.0 g/dL [facility] MCV (RBC) [Entitic vol] 92.4 fL 80.0 - 100.0 fL [facility] Monocytes (Bld) [#/Vol] 0.60 10*3/uL [facility] Monocytes/100 WBC (Bld) 13.6 % C [facility] Neutrophils (Bld) [#/Vol] 2.84 10*3/uL [facility] Neutrophils/100 WBC (Bld) 64.5 % [facility] Nucleated [facility] (Bld) [#/Vol] [facility] Nucleated RBC/100 WBC (Bld) [Ratio] 0.0 % /100 WBC [facility] Platelet mean volume (Bld) [Entitic vol] 8.7 fL Low 9.0 - 12.7 fL [facility] Platelets (Bld) [#/Vol] 153 10*3/uL [facility] RBC (Bld) [#/Vol] 3.82 10*6/uL Low 4.20 - 6.0 0 m/uL [facility] WBC (Bld) [#/Vol] 4.40 10*3/uL [facility] Eosinophils/100 WBC Auto (Bl d)on 02-19-2024 Eosinophils/100 WBC (Bld) 3.9 % [facility] Erythrocyte distribution wid th Auto (RBC) [Ratio]on 02-19-2024 Erythrocyte distribution width (RBC) [Ratio] 13.8 % 11.5-15.0 [facility] Hematocrit Auto (Bld) [Volum e fraction]on 02-19-2024 Hematocrit (Bld) [Volume fraction] 35.3 % 39.0-51.0 [facility] Hemoglobin [Mass/volume] in Bloodon 02-19-2024 Hemoglobin (Bld) [Mass/Vol] 11.4 g/dL 13.0-17.0 [facility] Laboratory - Chemistry and C hemistry - challengeon 02-19-2024 Calcium [Mass/Vol] 8.3 mg/dL 8.5-10.2 [facility] Chloride [Moles/Vol] 107 mmol/L 97-105 [facility] CO2 [Moles/Vol] 25 mmol/L 22-30 [facility] Creatinine [Mass/Vol] 0.90 mg/dL 0.73-1.22 [facility] Glucose [Mass/Vol] 114 mg/dL 74-99 [facility] Comment on above: The [place] [employer] Association (ADA) provides guidance for [...] Standards of Medical Care in Diabetes 2016, [place] [employer]. Diabetes Care. 2016.39(Suppl 1). Potassium [Moles/Vol] 4.4 mmol/L 3.7-5.1 [facility] Sodium [Moles/Vol] 137 mmol/L 136-144 [facility] Urea nitrogen [Mass/Vol] 20 mg/dL 9-24 [facility] Laboratory - Hematology and Cell countson 02-19-2024 Eosinophils (Bld) [#/Vol] 0.17 10*3/uL <0.46 [facility] Immature granulocytes/100 WBC (Bld) 0.2 % [facility] Leukocytes [#/volume] correc ramona for nucleated erythrocytes in Blood by Automated counon 02-19-2024 WBC corrected for nucl RBC Auto (Bld) [#/Vol] 4.40 k/uL 3.70-11.00 [facility] Lymphocytes Auto (Bld) [#/Vo l]on 02-19-2024 Lymphocytes (Bld) [#/Vol] 0.76 10*3/uL 1.00-4.00 [facility] Lymphocytes/100 WBC Auto (Bl d)on 02-19-2024 Lymphocytes/100 WBC (Bld) 17.3 % [facility] MCH Auto (RBC) [Entitic mass ]on 02-19-2024 MCH (RBC) [Entitic mass] 29.8 pg 26.0-34.0 [facility] MCHC Auto (RBC) [Mass/Vol]on 02-19-2024 MCHC (RBC) [Mass/Vol] 32.3 g/dL 30.5-36.0 [facility] MCV Auto (RBC) [Entitic vol] on 02-19-2024 MCV (RBC) [Entitic vol] 92.4 fL 80.0-100.0 F [facility] Monocytes Auto (Bld) [#/Vol] on 02-19-2024 Monocytes (Bld) [#/Vol] 0.60 10*3/uL <0.87 [facility] Monocytes/100 WBC Auto (Bld) on 02-19-2024 Monocytes/100 WBC (Bld) 13.6 % F [facility] Neutrophils Auto (Bld) [#/Vo l]on 02-19-2024 Neutrophils (Bld) [#/Vol] 2.84 10*3/uL 1.45-7.50 [facility] Neutrophils/100 WBC Auto (Bl d)on 02-19-2024 Neutrophils/100 WBC (Bld) 64.5 % [facility] No Panel Informationon 02-18 Estimated GFR (CKD-EPI) 83 mL/min/1.73m??? >=60 [facility] Comment on above: Estimated Glomerular Filtration [...] Immature Granulocyte # (Auto) <0.03 k/uL <0.10 [facility] Nucleated RBC Auto (Bld) [#/ Vol]on 02-19-2024 Nucleated RBC (Bld) [#/Vol] 10*3/uL <0.01 [facility] Nucleated erythrocytes [Pres ence] in Blood by Automated counton 02-19-2024 Nucleated RBC Auto Ql (Bld) 0.0 /100{WBC} [facility] Platelet mean volume Auto (B ld) [Entitic vol]on 02-19-2024 Platelet mean volume (Bld) [Entitic vol] 8.7 fL 9.0-12.7 [facility] Platelets Auto (Bld) [#/Vol] on 02-19-2024 Platelets (Bld) [#/Vol] 153 10*3/uL 150-400 [facility] RBC Auto (Bld) [#/Vol]on RBC (Bld) [#/Vol] 3.82 10*6/uL 4.20-6.00 [facility] Serum or plasma anion gap de terminationon 02-19-2024 Anion gap [Moles/Vol] 5 mmol/L 9-18 [facility] Urine culture routineOrdered By: Eugene Chaparro on 02-19-2024 Bacteria identified Cx Nom (U) [facility] Basophils Auto (Bld) [#/Vol] on 02-12-2024 Basophils (Bld) [#/Vol] 10*3/uL <0.11 F [facility] Basophils/100 WBC Auto (Bld) on 02-12-2024 Basophils/100 WBC (Bld) 0.4 % F [facility] Blood manual differential co mment interpretation narrativeon 02-12-2024 Manual differential comment Joshua (Bld) [Interp] Auto [facility] Eosinophils/100 WBC Auto (Bl d)on 02-12-2024 Eosinophils/100 WBC (Bld) 4.4 % [facility] Erythrocyte distribution wid th Auto (RBC) [Ratio]on 02-12-2024 Erythrocyte distribution width (RBC) [Ratio] 13.2 % 11.5-15.0 [facility] Hematocrit Auto (Bld) [Volum e fraction]on 02-12-2024 Hematocrit (Bld) [Volume fraction] 40.8 % 39.0-51.0 [facility] Hemoglobin [Mass/volume] in Bloodon 02-12-2024 Hemoglobin (Bld) [Mass/Vol] 13.1 g/dL 13.0-17.0 [facility] Laboratory - Chemistry and C hemistry - challengeon 02-12-2024 Albumin [Mass/Vol] 3.9 g/dL 3.9-4.9 [facility] ALP [Catalytic activity/Vol] 62 U/L 38-113 [facility] ALT [Catalytic activity/Vol] 18 U/L 10-54 [facility] AST [Catalytic activity/Vol] 14 U/L 14-40 [facility] Bilirubin [Mass/Vol] 0.3 mg/dL 0.2-1.3 [facility] Calcium [Mass/Vol] 9.7 mg/dL 8.5-10.2 [facility] Chloride [Moles/Vol] 105 mmol/L 97-105 [facility] CO2 [Moles/Vol] 26 mmol/L 22-30 [facility] Creatinine [Mass/Vol] 1.01 mg/dL 0.73-1.22 [facility] Glucose [Mass/Vol] 84 mg/dL 74-99 [facility] Comment on above: The [place] [employer] Association (ADA) provides guidance for [...] Standards of Medical Care in Diabetes 2016, [place] [employer]. Diabetes Care. 2016.39(Suppl 1). Potassium [Moles/Vol] 4.8 mmol/L 3.7-5.1 [facility] Sodium [Moles/Vol] 142 mmol/L 136-144 [facility] Urea nitrogen [Mass/Vol] 23 mg/dL 07-14 [facility] Laboratory - Hematology and Cell countson 02-12-2024 Eosinophils (Bld) [#/Vol] 0.25 10*3/uL <0.46 [facility] Immature granulocytes (Bld) [#/Vol] 0.03 10*3/uL <0.10 [facility] Immature granulocytes/100 WBC (Bld) 0.5 % [facility] Leukocytes [#/volume] correc ramona for nucleated erythrocytes in Blood by Automated counon 02-12-2024 WBC corrected for nucl RBC Auto (Bld) [#/Vol] 5.64 k/uL 3.70-11.00 [facility] Lymphocytes Auto (Bld) [#/Vo l]on 02-12-2024 Lymphocytes (Bld) [#/Vol] 0.91 10*3/uL 1.00-4.00 [facility] Lymphocytes/100 WBC Auto (Bl d)on 02-12-2024 Lymphocytes/100 WBC (Bld) 16.1 % [facility] MCH Auto (RBC) [Entitic mass ]on 02-12-2024 MCH (RBC) [Entitic mass] 29.4 pg 26.0-34.0 [facility] MCHC Auto (RBC) [Mass/Vol]on 02-12-2024 MCHC (RBC) [Mass/Vol] 32.1 g/dL 30.5-36.0 [facility] MCV Auto (RBC) [Entitic vol] on 02-12-2024 MCV (RBC) [Entitic vol] 91.5 fL 80.0-100.0 F [facility] Monocytes Auto (Bld) [#/Vol] on 02-12-2024 Monocytes (Bld) [#/Vol] 0.74 10*3/uL <0.87 [facility] Monocytes/100 WBC Auto (Bld) on 02-12-2024 Monocytes/100 WBC (Bld) 13.1 % F [facility] Neutrophils Auto (Bld) [#/Vo l]on 02-12-2024 Neutrophils (Bld) [#/Vol] 3.69 10*3/uL 1.45-7.50 [facility] Neutrophils/100 WBC Auto (Bl d)on 02-12-2024 Neutrophils/100 WBC (Bld) 65.5 % [facility] No Panel Informationon 02-11 Estimated GFR (CKD-EPI) 72 mL/min/1.73m??? >=60 [facility] Comment on above: Estimated Glomerular Filtration [...] 02-12-2024 Nucleated RBC (Bld) [#/Vol] 10*3/uL <0.01 [facility] Nucleated erythrocytes [Pres ence] in Blood by Automated counton 02-12-2024 Nucleated RBC Auto Ql (Bld) 0.0 /100{WBC} [facility] Platelet mean volume Auto (B ld) [Entitic vol]on 02-12-2024 Platelet mean volume (Bld) [Entitic vol] 8.7 fL 9.0-12.7 [facility] Platelets Auto (Bld) [#/Vol] on 02-12-2024 Platelets (Bld) [#/Vol] 188 10*3/uL 150-400 [facility] Protein [Mass/volume] in Ser um or Plasmaon 02-12-2024 Protein [Mass/Vol] 6.7 g/dL 6.3-8.0 [facility] RBC Auto (Bld) [#/Vol]on RBC (Bld) [#/Vol] 4.46 10*6/uL 4.20-6.00 [facility] Serum or plasma anion gap de terminationon 02-12-2024 Anion gap [Moles/Vol] 11 mmol/L 9-18 [facility] Laboratory - Chemistry and C hemistry - challengeon 02-06-2024 Albumin [Mass/Vol] 3.7 g/dL 3.9-4.9 [facility] ALP [Catalytic activity/Vol] 59 U/L 38-113 [facility] ALT [Catalytic activity/Vol] 28 U/L 10-54 [facility] AST [Catalytic activity/Vol] 26 U/L 14-40 [facility] Bilirubin [Mass/Vol] 0.3 mg/dL 0.2-1.3 [facility] Calcium [Mass/Vol] 9.5 mg/dL 8.5-10.2 [facility] Chloride [Moles/Vol] 108 mmol/L 97-105 [facility] CO2 [Moles/Vol] 24 mmol/L 22-30 [facility] Creatinine [Mass/Vol] 1.11 mg/dL 0.73-1.22 [facility] Glucose [Mass/Vol] 113 mg/dL 74-99 [facility] Comment on above: The [place] [employer] (ADA) provides guidance for [...] Standards of Medical Care in Diabetes 2016, [place] [employer]. Diabetes Care. 2016.39(Suppl 1). Potassium [Moles/Vol] 5.0 mmol/L 3.7-5.1 [facility] Sodium [Moles/Vol] 143 mmol/L 136-144 [facility] Urea nitrogen [Mass/Vol] 20 mg/dL 9-24 [facility] No Panel Informationon 02-05 Estimated GFR (CKD-EPI) 64 mL/min/1.73m??? >=60 [facility] Comment on above: Estimated Glomerular Filtration [...] Plasmaon 02-06-2024 Protein [Mass/Vol] 6.3 g/dL 6.3-8.0 [facility] Serum or plasma anion gap de terminationon 02-06-2024 Anion gap [Moles/Vol] 11 mmol/L 9-18 [facility] Basophils Auto (Bld) [#/Vol] on 02-04-2024 Basophils (Bld) [#/Vol] 0.03 10*3/uL <0.11 [facility] Basophils/100 WBC Auto (Bld) on 02-04-2024 Basophils/100 WBC (Bld) 0.5 % F [facility] Blood manual differential co mment interpretation narrativeon 02-04-2024 Manual differential comment Joshua (Bld) [Interp] Auto [facility] CBC W Auto Differential pane l (Bld)on 02-04-2024 Basophils (Bld) [#/Vol] 0.03 10*3/uL <0.11 k/uL [facility] Basophils/100 WBC (Bld) 0.5 % C [facility] Differential cell count method Nom (Bld) Auto [facility] Eosinophils (Bld) [#/Vol] 0.26 10*3/uL <0.46 k/uL [facility] Eosinophils/100 WBC (Bld) 4.0 % [facility] Erythrocyte distribution width (RBC) [Ratio] 13.2 % 11.5 - 15.0 % [facility] Hematocrit (Bld) [Volume fraction] 39.8 % 39.0 - 51.0 % [facility] Hemoglobin (Bld) [Mass/Vol] 12.8 g/dL Low 13.0 - 17.0 g/dL [facility] Immature granulocytes (Bld) [#/Vol] <0.10 k/uL [facility] Immature granulocytes/100 WBC (Bld) 0.3 % [facility] Lymphocytes (Bld) [#/Vol] 1.09 10*3/uL 1.00 - 4.00 k/uL [facility] Lymphocytes/100 WBC (Bld) 17.0 % [facility] MCH (RBC) [Entitic mass] 29.6 pg 26.0 - 34.0 pg [facility] MCHC (RBC) [Mass/Vol] 32.2 g/dL 30.5 - 36.0 g/dL [facility] MCV (RBC) [Entitic vol] 92.1 fL 80.0 - 100.0 fL [facility] Monocytes (Bld) [#/Vol] 0.99 10*3/uL High <0.87 k/uL [facility] Monocytes/100 WBC (Bld) 15.4 % [facility] Neutrophils (Bld) [#/Vol] 4.03 10*3/uL 1.45 - 7.50 k/uL [facility] Neutrophils/100 WBC (Bld) 62.8 % [facility] Nucleated RBC (Bld) [#/Vol] <0.01 k/uL [facility] Nucleated RBC/100 WBC (Bld) [Ratio] 0.0 /100 WBC [facility] Platelet mean volume (Bld) [Entitic vol] 8.9 fL Low 9.0 - 12.7 fL [facility] Platelets (Bld) [#/Vol] 181 10*3/uL 150 - 400 k/uL [facility] RBC (Bld) [#/Vol] 4.32 10*6/uL 4.20 - 6.0 0 m/uL [facility] WBC (Bld) [#/Vol] 6.42 10*3/uL 3.70 - 11.00 k/uL [facility] Comprehensive metabolic 2000 panelon 02-04-2024 Albumin [Mass/Vol] 4.0 g/dL 3.9 - 4.9 g/dL [facility] ALP [Catalytic activity/Vol] 68 U/L 38 - 113 U/L [facility] ALT [Catalytic activity/Vol] 15 U/L 10 - 54 U/L [facility] Anion gap [Moles/Vol] 10 mmol/L 9 - 18 mmol/L [facility] AST [Catalytic activity/Vol] 14 U/L 14 - 40 U/L [facility] Bilirubin [Mass/Vol] 0.3 mg/dL 0.2 - 1 .3 mg/dL [facility] Calcium [Mass/Vol] 9.7 mg/dL 8.5 - 10. 2 mg/dL [facility] Chloride [Moles/Vol] 104 mmol/L 97 - 10 5 mmol/L [facility] CO2 [Moles/Vol] 24 mmol/L 22 - 30 mmol/L [facility] Creatinine [Mass/Vol] 1.38 mg/dL High 0.73 - 1.22 mg/dL [facility] Estimated Glomerular Filtration Rate 49 mL/min/1.73m Low >=60 mL/min/1.73 m [facility] Glucose [Mass/Vol] 137 mg/dL High 74 - 99 mg/dL [facility] Potassium [Moles/Vol] 4.8 mmol/L 3.7 - 5.1 mmol/L [facility] Protein [Mass/Vol] 6.9 g/dL 6.3 - 8.0 g/dL [facility] Sodium [Moles/Vol] 138 mmol/L 136 - 144 mmol/L [facility] Urea nitrogen [Mass/Vol] 32 mg/dL High 9 - 24 mg/dL [facility] Eosinophils/100 WBC Auto (Bl d)on 02-04-2024 Eosinophils/100 WBC (Bld) 4.0 % [facility] Erythrocyte distribution wid th Auto (RBC) [Ratio]on 02-04-2024 Erythrocyte distribution width (RBC) [Ratio] 13.2 % 11.5-15.0 [facility] Hematocrit Auto (Bld) [Volum e fraction]on 02-04-2024 Hematocrit (Bld) [Volume fraction] 39.8 % 39.0-51.0 [facility] Hemoglobin [Mass/volume] in Bloodon 02-04-2024 Hemoglobin (Bld) [Mass/Vol] 12.8 g/dL 13.0-17.0 [facility] Laboratory - Chemistry and C hemistry - challengeon 02-04-2024 Albumin [Mass/Vol] 4.0 g/dL 3.9-4.9 [facility] ALP [Catalytic activity/Vol] 68 U/L 38-113 [facility] ALT [Catalytic activity/Vol] 15 U/L 10-54 [facility] AST [Catalytic activity/Vol] 14 U/L 14-40 [facility] Bilirubin [Mass/Vol] 0.3 mg/dL 0.2-1.3 [facility] Calcium [Mass/Vol] 9.7 mg/dL 8.5-10.2 [facility] Chloride [Moles/Vol] 104 mmol/L 97-105 [facility] CO2 [Moles/Vol] 24 mmol/L 22-30 [facility] Creatinine [Mass/Vol] 1.38 mg/dL 0.73-1.22 [facility] Glucose [Mass/Vol] 137 mg/dL 74-99 [facility] Comment on above: The [place] Di[employer] (ADA) provides guidance for [...] Standards of Medical Care in Diabetes 2016, [place] [employer]. Diabetes Care. 2016.39(Suppl 1). Magnesium [Mass/Vol] 2.4 mg/dL 1.7-2.3 [facility] Potassium [Moles/Vol] 4.8 mmol/L 3.7-5.1 [facility] Sodium [Moles/Vol] 138 mmol/L 136-144 [facility] Urea nitrogen [Mass/Vol] 32 mg/dL 9-24 [facility] Laboratory - Hematology and Cell countson 02-04-2024 Eosinophils (Bld) [#/Vol] 0.26 10*3/uL <0.46 [facility] Immature granulocytes/100 WBC (Bld) 0.3 % [facility] Leukocytes [#/volume] correc ramona for nucleated erythrocytes in Blood by Automated counon 02-04-2024 WBC corrected for nucl RBC Auto (Bld) [#/Vol] 6.42 k/uL 3.70-11.00 [facility] Lymphocytes Auto (Bld) [#/Vo l]on 02-04-2024 Lymphocytes (Bld) [#/Vol] 1.09 10*3/uL 1.00-4.00 [facility] Lymphocytes/100 WBC Auto (Bl d)on 02-04-2024 Lymphocytes/100 WBC (Bld) 17.0 % [facility] MAGNESIUM BLDon 02-04-2024 Magnesium [Mass/Vol] 2.4 mg/dL High 1.7 - 2 .3 mg/dL [facility] MCH Auto (RBC) [Entitic mass ]on 02-04-2024 MCH (RBC) [Entitic mass] 29.6 pg 26.0-34.0 [facility] MCHC Auto (RBC) [Mass/Vol]on 02-04-2024 MCHC (RBC) [Mass/Vol] 32.2 g/dL 30.5-36.0 [facility] MCV Auto (RBC) [Entitic vol] on 02-04-2024 MCV (RBC) [Entitic vol] 92.1 fL 80.0-100.0 [facility] Monocytes Auto (Bld) [#/Vol] on 02-04-2024 Monocytes (Bld) [#/Vol] 0.99 10*3/uL <0.87 [facility] Monocytes/100 WBC Auto (Bld) on 02-04-2024 Monocytes/100 WBC (Bld) 15.4 % [facility] Neutrophils Auto (Bld) [#/Vo l]on 02-04-2024 Neutrophils (Bld) [#/Vol] 4.03 10*3/uL 1.45-7.50 [facility] Neutrophils/100 WBC Auto (Bl d)on 02-04-2024 Neutrophils/100 WBC (Bld) 62.8 % [facility] No Panel Informationon 02-03 Estimated GFR (CKD-EPI) 49 mL/min/1.73m??? >=60 [facility] Comment on above: Estimated Glomerular Filtration [...] Immature Granulocyte # (Auto) <0.03 k/uL <0.10 [facility] Nucleated RBC Auto (Bld) [#/ Vol]on 02-04-2024 Nucleated RBC (Bld) [#/Vol] 10*3/uL <0.01 [facility] Nucleated erythrocytes [Pres ence] in Blood by Automated counton 02-04-2024 Nucleated RBC Auto Ql (Bld) 0.0 /100{WBC} [facility] Platelet mean volume Auto (B ld) [Entitic vol]on 02-04-2024 Platelet mean volume (Bld) [Entitic vol] 8.9 fL 9.0-12.7 [facility] Platelets Auto (Bld) [#/Vol] on 02-04-2024 Platelets (Bld) [#/Vol] 181 10*3/uL 150-400 [facility] Protein [Mass/volume] in Ser um or Plasmaon 02-04-2024 Protein [Mass/Vol] 6.9 g/dL 6.3-8.0 [facility] RBC Auto (Bld) [#/Vol]on RBC (Bld) [#/Vol] 4.32 10*6/uL 4.20-6.00 [facility] Serum or plasma anion gap de terminationon 02-04-2024 Anion gap [Moles/Vol] 10 mmol/L 9-18 [facility] Laboratory - Chemistry and C hemistry - challengeon 01-31-2024 Bilirubin Ql (U) Negative [facility] Glucose (U) [Mass/Vol] [facility]) 5 [facility] pH (U) 5.0 [pH] [facility] Specific gravity (U) [Rel density] 1.010 [facility] Urobilinogen (U) [Mass/Vol] 0.2 mg/dL [facility] Laboratory - Specimen inform ationon 01-31-2024 Appearance (U) cloudy [facility] Color (U) darkyellow [facility] - Urinalysison Leukocyte esterase Test strip Ql (U) ++ [facility] Nitrite Ql (U) Positive [facility] Protein Ql (U) + [facility] No Panel Informationon 01-30 Urine Occult Blood + [facility] Basophils Auto (Bld) [#/Vol] on 01-28-2024 Basophils (Bld) [#/Vol] 0.03 10*3/uL <0.11 [facility] Basophils/100 WBC Auto (Bld) on 01-28-2024 Basophils/100 WBC (Bld) 0.4 % [facility] Blood manual differential co mment interpretation narrativeon 01-28-2024 Manual differential comment Joshua (Bld) [Interp] Auto [facility] Comprehensive metabolic 2000 panelon 01-28-2024 Albumin [Mass/Vol] 4.1 g/dL 3.9 - 4.9 g/dL [facility] ALP [Catalytic activity/Vol] 70 U/L 38 - 113 U/L [facility] ALT [Catalytic activity/Vol] 25 U/L 10 - 54 U/L [facility] Anion gap [Moles/Vol] 7 mmol/L Low 9 - 18 mmol/L [facility] AST [Catalytic activity/Vol] 21 U/L 14 - 40 U/L [facility] Bilirubin [Mass/Vol] 0.3 mg/dL 0.2 - 1 .3 mg/dL [facility] Calcium [Mass/Vol] 9.4 mg/dL 8.5 - 10. 2 mg/dL [facility] Chloride [Moles/Vol] 106 mmol/L High 97 - 10 5 mmol/L [facility] CO2 [Moles/Vol] 26 mmol/L 22 - 30 mmol/L [facility] Creatinine [Mass/Vol] 1.06 mg/dL 0.73 - 1.22 mg/dL [facility] Estimated Glomerular Filtration Rate 68 mL/min/1.73m >=60 mL/min/1.73 m [facility] Glucose [Mass/Vol] 85 mg/dL 74 - 99 mg/[facility] Potassium [Moles/Vol] 4.7 mmol/L 3.7 - 5.1 mmol/L [facility] Protein [Mass/Vol] 6.8 g/dL 6.3 - 8.0 g/dL [facility] Sodium [Moles/Vol] 139 mmol/L 136 - 144 mmol/L [facility] Urea nitrogen [Mass/Vol] 23 mg/dL 9 - 24 mg/dL [facility] Eosinophils/100 WBC Auto (Bl d)on 01-28-2024 Eosinophils/100 WBC (Bld) 8.8 % [facility] Erythrocyte distribution wid th Auto (RBC) [Ratio]on 01-28-2024 Erythrocyte distribution width (RBC) [Ratio] 13.2 % 11.5-15.0 [facility] Hematocrit Auto (Bld) [Volum e fraction]on 01-28-2024 Hematocrit (Bld) [Volume fraction] 37.3 % 39.0-51.0 [facility] Hemoglobin [Mass/volume] in Bloodon 01-28-2024 Hemoglobin (Bld) [Mass/Vol] 12.1 g/dL 13.0-17.0 [facility] Laboratory - Chemistry and C hemistry - challengeon 01-28-2024 Magnesium [Mass/Vol] 2.4 mg/dL High 1.7 - 2 .3 mg/dL [facility] Albumin [Mass/Vol] 4.1 g/dL 3.9-4.9 [facility] ALP [Catalytic activity/Vol] 70 U/L 38-113 [facility] ALT [Catalytic activity/Vol] 25 U/L 10-54 [facility] AST [Catalytic activity/Vol] 21 U/L 14-40 [facility] Bilirubin [Mass/Vol] 0.3 mg/dL 0.2-1.3 [facility] Calcium [Mass/Vol] 9.4 mg/dL 8.5-10.2 [facility] Chloride [Moles/Vol] 106 mmol/L 97-105 [facility] CO2 [Moles/Vol] 26 mmol/L 22-30 [facility] Creatinine [Mass/Vol] 1.06 mg/dL 0.73-1.22 [facility] Glucose [Mass/Vol] 85 mg/dL 74-99 [facility] Comment on above: The [place] Di[employer] Association (ADA) provides guidance for [...] Standards of Medical Care in Diabetes 2016, [place] [employer]. Diabetes Care. 2016.39(Suppl 1). Potassium [Moles/Vol] 4.7 mmol/L 3.7-5.1 [facility] Sodium [Moles/Vol] 139 mmol/L 136-144 [facility] Urea nitrogen [Mass/Vol] 23 mg/dL 9-24 [facility] Magnesium [Mass/Vol] 2.4 mg/dL 1.7-2.3 [facility] - Hematology and Cell countson 01-28-2024 Eosinophils (Bld) [#/Vol] 0.60 10*3/uL <0.46 [facility] Immature granulocytes (Bld) [#/Vol] 0.03 10*3/uL <0.10 [facility] Immature granulocytes/100 WBC (Bld) 0.4 % [facility] Leukocytes [#/volume] correc ramona for nucleated erythrocytes in Blood by Automated counon 01-28-2024 WBC corrected for nucl RBC Auto (Bld) [#/Vol] 6.84 k/uL 3.70-11.00 [facility] Lymphocytes Auto (Bld) [#/Vo l]on 01-28-2024 Lymphocytes (Bld) [#/Vol] 1.11 10*3/uL 1.00-4.00 [facility] Lymphocytes/100 WBC Auto (Bl d)on 01-28-2024 Lymphocytes/100 WBC (Bld) 16.2 % [facility] MCH Auto (RBC) [Entitic mass ]on 01-28-2024 MCH (RBC) [Entitic mass] 30.2 pg 26.0-34.0 [facility] MCHC Auto (RBC) [Mass/Vol]on 01-28-2024 MCHC (RBC) [Mass/Vol] 32.4 g/dL 30.5-36.0 [facility] MCV Auto (RBC) [Entitic vol] on 01-28-2024 MCV (RBC) [Entitic vol] 93.0 fL 80.0-100.0 [facility] Monocytes Auto (Bld) [#/Vol] on 01-28-2024 Monocytes (Bld) [#/Vol] 1.02 10*3/uL <0.87 [facility] Monocytes/100 WBC Auto (Bld) on 01-28-2024 Monocytes/100 WBC (Bld) 14.9 % [facility] Neutrophils Auto (Bld) [#/Vo l]on 01-28-2024 Neutrophils (Bld) [#/Vol] 4.05 10*3/uL 1.45-7.50 [facility] Neutrophils/100 WBC Auto (Bl d)on 01-28-2024 Neutrophils/100 WBC (Bld) 59.3 % [facility] No Panel Informationon 01-27 Estimated GFR (CKD-EPI) 68 mL/min/1.73m??? >=60 [facility] Comment on above: Estimated Glomerular Filtration [...] 01-28-2024 Nucleated RBC (Bld) [#/Vol] 10*3/uL <0.01 [facility] Nucleated erythrocytes [Pres ence] in Blood by Automated counton 01-28-2024 Nucleated RBC Auto Ql (Bld) 0.0 /100{WBC} [facility] Platelet mean volume Auto (B ld) [Entitic vol]on 01-28-2024 Platelet mean volume (Bld) [Entitic vol] 8.5 fL 9.0-12.7 [facility] Platelets Auto (Bld) [#/Vol] on 01-28-2024 Platelets (Bld) [#/Vol] 172 10*3/uL 150-400 [facility] Protein [Mass/volume] in Ser um or Plasmaon 01-28-2024 Protein [Mass/Vol] 6.8 g/dL 6.3-8.0 [facility] RBC Auto (Bld) [#/Vol]on RBC (Bld) [#/Vol] 4.01 10*6/uL 4.20-6.00 [facility] Serum or plasma anion gap de terminationon 01-28-2024 Anion gap [Moles/Vol] 7 mmol/L 9-18 [facility] Basophils Auto (Bld) [#/Vol] on 01-20-2024 Basophils (Bld) [#/Vol] 0.05 10*3/uL <0.11 [facility] Basophils/100 WBC Auto (Bld) on 01-20-2024 Basophils/100 WBC (Bld) 0.8 % [facility] Blood manual differential co mment interpretation narrativeon 01-20-2024 Manual differential comment Joshua (Bld) [Interp] Auto [facility] Eosinophils/100 WBC Auto (Bl d)on 01-20-2024 Eosinophils/100 WBC (Bld) 10.1 % [facility] Erythrocyte distribution wid th Auto (RBC) [Ratio]on 01-20-2024 Erythrocyte distribution width (RBC) [Ratio] 13.2 % 11.5-15.0 [facility] Hematocrit Auto (Bld) [Volum e fraction]on 01-20-2024 Hematocrit (Bld) [Volume fraction] 39.2 % 39.0-51.0 [facility] Hemoglobin [Mass/volume] in Bloodon 01-20-2024 Hemoglobin (Bld) [Mass/Vol] 12.4 g/dL 13.0-17.0 [facility] - Chemistry and C hemistry - challengeon 01-20-2024 Albumin [Mass/Vol] 3.8 g/dL 3.9-4.9 [facility] ALP [Catalytic activity/Vol] 71 U/L 38-113 [facility] ALT [Catalytic activity/Vol] 15 U/L 10-54 [facility] AST [Catalytic activity/Vol] 13 U/L 14-40 [facility] Bilirubin [Mass/Vol] 0.3 mg/dL 0.2-1.3 [facility] Calcium [Mass/Vol] 9.6 mg/dL 8.5-10.2 [facility] Chloride [Moles/Vol] 109 mmol/L 97-105 [facility] CO2 [Moles/Vol] 26 mmol/L 22-30 [facility] Creatinine [Mass/Vol] 1.08 mg/dL 0.73-1.22 [facility] Glucose [Mass/Vol] 79 mg/dL 74-99 [facility] Comment on above: The [place] Diab[employer] Association (ADA) provides guidance for [...] Standards of Medical Care in Diabetes 2016, [place] [employer]. Diabetes Care. 2016.39(Suppl 1). Potassium [Moles/Vol] 4.5 mmol/L 3.7-5.1 [facility] Sodium [Moles/Vol] 145 mmol/L 136-144 [facility] Urea nitrogen [Mass/Vol] 27 mg/dL 9-24 [facility] - Hematology and Cell countson 01-20-2024 Eosinophils (Bld) [#/Vol] 0.61 10*3/uL <0.46 [facility] Immature granulocytes/100 WBC (Bld) 0.3 % [facility] Leukocytes [#/volume] correc ramona for nucleated erythrocytes in Blood by Automated counon 01-20-2024 WBC corrected for nucl RBC Auto (Bld) [#/Vol] 6.05 k/uL 3.70-11.00 [facility] Lymphocytes Auto (Bld) [#/Vo l]on 01-20-2024 Lymphocytes (Bld) [#/Vol] 1.28 10*3/uL 1.00-4.00 [facility] Lymphocytes/100 WBC Auto (Bl d)on 01-20-2024 Lymphocytes/100 WBC (Bld) 21.2 % [facility] MCH Auto (RBC) [Entitic mass ]on 01-20-2024 MCH (RBC) [Entitic mass] 29.6 pg 26.0-34.0 [facility] MCHC Auto (RBC) [Mass/Vol]on 01-20-2024 MCHC (RBC) [Mass/Vol] 31.6 g/dL 30.5-36.0 [facility] MCV Auto (RBC) [Entitic vol] on 01-20-2024 MCV (RBC) [Entitic vol] 93.6 fL 80.0-100.0 [facility] Monocytes Auto (Bld) [#/Vol] on 01-20-2024 Monocytes (Bld) [#/Vol] 0.87 10*3/uL <0.87 [facility] Monocytes/100 WBC Auto (Bld) on 01-20-2024 Monocytes/100 WBC (Bld) 14.4 % [facility] Neutrophils Auto (Bld) [#/Vo l]on 01-20-2024 Neutrophils (Bld) [#/Vol] 3.22 10*3/uL 1.45-7.50 [facility] Neutrophils/100 WBC Auto (Bl d)on 01-20-2024 Neutrophils/100 WBC (Bld) 53.2 % [facility] No Panel Informationon 01-19 Estimated GFR (CKD-EPI) 66 mL/min/1.73m??? >=60 [facility] Comment on above: Estimated Glomerular Filtration [...] Immature Granulocyte # (Auto) <0.03 k/uL <0.10 [facility] Nucleated RBC Auto (Bld) [#/ Vol]on 01-20-2024 Nucleated RBC (Bld) [#/Vol] 10*3/uL <0.01 [facility] Nucleated erythrocytes [Pres ence] in Blood by Automated counton 01-20-2024 Nucleated RBC Auto Ql (Bld) 0.0 /100{WBC} [facility] Platelet mean volume Auto (B ld) [Entitic vol]on 01-20-2024 Platelet mean volume (Bld) [Entitic vol] 8.7 fL 9.0-12.7 [facility] Platelets Auto (Bld) [#/Vol] on 01-20-2024 Platelets (Bld) [#/Vol] 165 10*3/uL 150-400 [facility] Protein [Mass/volume] in Ser um or Plasmaon 01-20-2024 Protein [Mass/Vol] 6.4 g/dL 6.3-8.0 [facility] RBC Auto (Bld) [#/Vol]on RBC (Bld) [#/Vol] 4.19 10*6/uL 4.20-6.00 [facility] Serum or plasma anion gap de terminationon 01-20-2024 Anion gap [Moles/Vol] 10 mmol/L 9-[address] [facility] [address] Chest WO contraston 01-07 IMPRESSION: 1. Subcentimeter noncalcified and partially calcified nodular opacities measuring up to 5 mm. Consider interval follow-up. 2. Findings compatible with previous granulomatous disease. Transcribe Date/Time: Jan 08 2024 12:00P Dictated by: DHIRAJ VITALE MD This examination was interpreted and the report reviewed and electronically signed by: DHIRAJ VITALE MD on Jan 08 2024 12:36PM EST Thank you for allowing us to participate in the care of your patient. Should there be any questions regarding this interpretation, please call [phone]. If you are unable to reach us at the number above, please feel free to [facility] at [phone]. 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 MQ: CTCWO_6 CT Radiation dose: Integrated Dose-length product (DLP) for this visit = 327 mGy*cm CT Dose Reduction Employed: Automated exposure control (AEC) Comparison: CT abdomen/pelvis dated 12/17/23 from an outside institution. RESULT: Limitations: None. Lines, tubes, and devices: None. Lung parenchyma and airways: Calcified several calcified granuloma is noted. Noncalcified and partially calcified subcentimeter nodular opacities measuring up to 5 mm. For example: Left upper lobe (3:57, 74, 156, 165) Left lower lobe (3: 116) The central airways are patent. Pleural space: No pleural effusion. No pleural thickening. Lower neck, lymph nodes, and mediastinum: The imaged thyroid gland is normal. No lymphadenopathy in the supraclavicular, axillary, mediastinal, or hilar regions. Heart, pericardium, and thoracic vessels: The thoracic aorta and main pulmonary artery are normal in caliber. The cardiac chambers are normal in size. No coronary artery atherosclerotic calcifications are noted, although the study is not optimized for coronary assessment. No pericardial effusion or thickening. Bones and soft tissues: No suspicious lytic or blastic osseous lesions. Upper abdomen: Calcified granulomas are noted in the spleen and liver. [employer]inder[employer] Machine Setter/Set Up Operator (topogram) images: No additional findings. 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 MQ: CTCWO_6 CT Radiation dose: Integrated Dose-length product (DLP) for this visit = 327 mGy*cm CT Dose Reduction Employed: Automated exposure control (AEC) Comparison: CT abdomen/pelvis dated 12/17/23 from an outside institution. RESULT: Limitations: None. Lines, tubes, and devices: None. Lung parenchyma and airways: Calcified several calcified granuloma is noted. Noncalcified and partially calcified subcentimeter nodular opacities measuring up to 5 mm. For example: Left upper lobe (3:57, 74, 156, 165) Left lower lobe (3: 116) The central airways are patent. Pleural space: No pleural effusion. No pleural thickening. Lower neck, lymph nodes, and mediastinum: The imaged thyroid gland is normal. No lymphadenopathy in the supraclavicular, axillary, mediastinal, or hilar regions. Heart, pericardium, and thoracic vessels: The thoracic aorta and main pulmonary artery are normal in caliber. The cardiac chambers are normal in size. No coronary artery atherosclerotic calcifications are noted, although the study is not optimized for coronary assessment. No pericardial effusion or thickening. Bones and soft tissues: No suspicious lytic or blastic osseous lesions. Upper abdomen: Calcified granulomas are noted in the spleen and liver. [employer]inder[employer] Machine Setter/Set Up Operator (topogram) images: No additional findings. IMPRESSION IMPRESSION: 1. Subcentimeter noncalcified and partially calcified nodular opacities measuring up to 5 mm. Consider interval follow-up. 2. Findings compatible with previous granulomatous disease. Transcribe Date/Time: Jan 08 2024 12:00P Dictated by: DHIRAJ VITALE MD This examination was interpreted and the report reviewed and electronically signed by: DHIRAJ VITALE MD on Jan 08 2024 12:36PM EST Thank you for allowing us to participate in the care of your patient. Should there be any questions regarding this interpretation, please call [phone]. If you are unable to reach us at the number above, please feel free to contact [facility] eRadiology at [phone]. [facility] Radiology Study observation (narrative) Rei wynne [facility] CT Chest WO contrastOrdered By: [facility] Provider on 01-08-2024 [facility] Basophils Auto (Bld) [#/Vol] on 01-03-2024 Basophils (Bld) [#/Vol] 0.05 10*3/uL <0.11 [facility] Basophils/100 WBC Auto (Bld) on 01-03-2024 Basophils/100 WBC (Bld) 0.7 % [facility] Blood manual differential co mment interpretation narrativeon 01-03-2024 Manual differential comment Joshua (Bld) [Interp] Auto [facility] CBC W Auto Differential pane l (Bld)on 01-03-2024 Basophils (Bld) [#/Vol] 0.05 10*3/uL <0.11 k/uL [facility] Basophils/100 WBC (Bld) 0.7 % [facility] Differential cell count method Nom (Bld) Auto [facility] Eosinophils (Bld) [#/Vol] 0.49 10*3/uL High <0.46 k/uL [facility] Eosinophils/100 WBC (Bld) 7.1 % [facility] Erythrocyte distribution width (RBC) [Ratio] 12.8 % 11.5 - 15.0 % [facility] Hematocrit (Bld) [Volume fraction] 37.8 % Low 39.0 - 51.0 % [facility] Hemoglobin (Bld) [Mass/Vol] 12.3 g/dL Low 13.0 - 17.0 g/dL [facility] Immature granulocytes (Bld) [#/Vol] <0.10 k/uL [facility] Immature granulocytes/100 WBC (Bld) 0.1 % [facility] Lymphocytes (Bld) [#/Vol] 1.52 10*3/uL 1.00 - 4.00 k/uL [facility] Lymphocytes/100 WBC (Bld) 22.0 % [facility] MCH (RBC) [Entitic mass] 29.9 pg 26.0 - 34.0 pg [facility] MCHC (RBC) [Mass/Vol] 32.5 g/dL 30.5 - 36.0 g/dL [facility] MCV (RBC) [Entitic vol] 92.0 fL 80.0 - 100.0 fL [facility] Monocytes (Bld) [#/Vol] 1.09 10*3/uL High <0.87 k/uL [facility] Monocytes/100 WBC (Bld) 15.8 % [facility] Neutrophils (Bld) [#/Vol] 3.76 10*3/uL 1.45 - 7.50 k/uL [facility] Neutrophils/100 WBC (Bld) 54.3 % [facility] Nucleated RBC (Bld) [#/Vol] <0.01 k/uL [facility] Nucleated RBC/100 WBC (Bld) [Ratio] 0.0 /100 WBC [facility] Platelet mean volume (Bld) [Entitic vol] 8.5 fL Low 9.0 - 12.7 fL [facility] Platelets (Bld) [#/Vol] 205 10*3/uL 150 - 400 k/uL [facility] RBC (Bld) [#/Vol] 4.11 10*6/uL Low 4.20 - 6.0 0 m/uL [facility] WBC (Bld) [#/Vol] 6.92 10*3/uL 3.70 - 11.00 k/uL [facility] Comprehensive metabolic 2000 panelon 01-03-2024 Albumin [Mass/Vol] 3.9 g/dL 3.9 - 4.9 g/dL [facility] ALP [Catalytic activity/Vol] 68 U/L 38 - 113 U/L [facility] ALT [Catalytic activity/Vol] 17 U/L 10 - 54 U/L [facility] Anion gap [Moles/Vol] 8 mmol/L Low 9 - 18 mmol/L [facility] AST [Catalytic activity/Vol] 14 U/L 14 - 40 U/L [facility] Bilirubin [Mass/Vol] 0.2 mg/dL 0.2 - 1 .3 mg/dL [facility] Calcium [Mass/Vol] 9.5 mg/dL 8.5 - 10. 2 mg/dL [facility] Chloride [Moles/Vol] 104 mmol/L 97 - 10 5 mmol/L [facility] CO2 [Moles/Vol] 26 mmol/L 22 - 30 mmol/L [facility] Creatinine [Mass/Vol] 1.08 mg/dL 0.73 - 1.22 mg/dL [facility] Estimated Glomerular Filtration Rate 66 mL/min/1.73m >=60 mL/min/1.73 m [facility] Glucose [Mass/Vol] 100 mg/dL High 74 - 99 mg/dL [facility] Potassium [Moles/Vol] 4.3 mmol/L 3.7 - 5.1 mmol/L [facility] Protein [Mass/Vol] 6.8 g/dL 6.3 - 8.0 g/dL [facility] Sodium [Moles/Vol] 138 mmol/L 136 - 144 mmol/L [facility] Urea nitrogen [Mass/Vol] 21 mg/dL 9 - 24 mg/dL [facility] Eosinophils/100 WBC Auto (Bl d)on 01-03-2024 Eosinophils/100 WBC (Bld) 7.1 % [facility] Erythrocyte distribution wid th Auto (RBC) [Ratio]on 01-03-2024 Erythrocyte distribution width (RBC) [Ratio] 12.8 % 11.5-15.0 [facility] Hematocrit Auto (Bld) [Volum e fraction]on 01-03-2024 Hematocrit (Bld) [Volume fraction] 37.8 % 39.0-51.0 [facility] Hemoglobin [Mass/volume] in Bloodon 01-03-2024 Hemoglobin (Bld) [Mass/Vol] 12.3 g/dL 13.0-17.0 [facility] - Chemistry and C hemistry - challengeon 01-03-2024 Albumin [Mass/Vol] 3.9 g/dL 3.9-4.9 [facility] ALP [Catalytic activity/Vol] 68 U/L 38-113 [facility] ALT [Catalytic activity/Vol] 17 U/L 10-54 [facility] AST [Catalytic activity/Vol] 14 U/L 14-40 [facility] Bilirubin [Mass/Vol] 0.2 mg/dL 0.2-1.3 [facility] Calcium [Mass/Vol] 9.5 mg/dL 8.5-10.2 [facility] Chloride [Moles/Vol] 104 mmol/L 97-105 [facility] CO2 [Moles/Vol] 26 mmol/L 22-30 [facility] Creatinine [Mass/Vol] 1.08 mg/dL 0.73-1.22 [facility] Glucose [Mass/Vol] 100 mg/dL 74-99 [facility] Comment on above: The [place] Di[employer] Association (ADA) provides guidance for [...] Standards of Medical Care in Diabetes 2016, [place] [employer]. Diabetes Care. 2016.39(Suppl 1). Potassium [Moles/Vol] 4.3 mmol/L 3.7-5.1 [facility] Sodium [Moles/Vol] 138 mmol/L 136-144 [facility] Urea nitrogen [Mass/Vol] 21 mg/dL 9 [facility] - Hematology and Cell countson 01-03-2024 Eosinophils (Bld) [#/Vol] 0.49 10*3/uL <0.46 [facility] Immature granulocytes/100 WBC (Bld) 0.1 % [facility] Leukocytes [#/volume] correc ramona for nucleated erythrocytes in Blood by Automated counon 01-03-2024 WBC corrected for nucl RBC Auto (Bld) [#/Vol] 6.92 k/uL 3.70-11.00 [facility] Lymphocytes Auto (Bld) [#/Vo l]on 01-03-2024 Lymphocytes (Bld) [#/Vol] 1.52 10*3/uL 1.00-4.00 [facility] Lymphocytes/100 WBC Auto (Bl d)on 01-03-2024 Lymphocytes/100 WBC (Bld) 22.0 % [facility] MCH Auto (RBC) [Entitic mass ]on 01-03-2024 MCH (RBC) [Entitic mass] 29.9 pg 26.0-34.0 [facility] MCHC Auto (RBC) [Mass/Vol]on 01-03-2024 MCHC (RBC) [Mass/Vol] 32.5 g/dL 30.5-36.0 [facility] MCV Auto (RBC) [Entitic vol] on 01-03-2024 MCV (RBC) [Entitic vol] 92.0 fL 80.0-100.0 [facility] Monocytes Auto (Bld) [#/Vol] on 01-03-2024 Monocytes (Bld) [#/Vol] 1.09 10*3/uL <0.87 [facility] Monocytes/100 WBC Auto (Bld) on 01-03-2024 Monocytes/100 WBC (Bld) 15.8 % [facility] Neutrophils Auto (Bld) [#/Vo l]on 01-03-2024 Neutrophils (Bld) [#/Vol] 3.76 10*3/uL 1.45-7.50 [facility] Neutrophils/100 WBC Auto (Bl d)on 01-03-2024 Neutrophils/100 WBC (Bld) 54.3 % [facility] No Panel Informationon 01-02 Estimated GFR (CKD-EPI) 66 mL/min/1.73m??? >=60 [facility] Comment on above: Estimated Glomerular Filtration [...] Immature Granulocyte # (Auto) <0.03 k/uL <0.10 [facility] Nucleated RBC Auto (Bld) [#/ Vol]on 01-03-2024 Nucleated RBC (Bld) [#/Vol] 10*3/uL <0.01 [facility] Nucleated erythrocytes [Pres ence] in Blood by Automated counton 01-03-2024 Nucleated RBC Auto Ql (Bld) 0.0 /100{WBC} [facility] Platelet mean volume Auto (B ld) [Entitic vol]on 01-03-2024 Platelet mean volume (Bld) [Entitic vol] 8.5 fL 9.0-12.7 [facility] Platelets Auto (Bld) [#/Vol] on 01-03-2024 Platelets (Bld) [#/Vol] 205 10*3/uL 150-400 [facility] Protein [Mass/volume] in Ser um or Plasmaon 01-03-2024 Protein [Mass/Vol] 6.8 g/dL 6.3-8.0 [facility] RBC Auto (Bld) [#/Vol]on RBC (Bld) [#/Vol] 4.11 10*6/uL 4.20-6.00 [facility] Serum or plasma anion gap de terminationon 01-03-2024 Anion gap [Moles/Vol] 8 mmol/L 9-18 [facility] Estimated glomerular filtrat ion rate (GFR) non- Americanon 12-17-2023 GFR/1.73 sq M.predicted among non-blacks MDRD (S/P/Bld) [Vol rate/Area] mL/min/{1.73_m2} >=60 [facility] - Chemistry and C hemistry - challengeon 12-17-2023 Creatinine [Mass/Vol] 1.15 mg/dL 0.70-1.30 [facility] GFR/1.73 sq M.predicted MDRD (S/P/Bld) [Vol rate/Area] mL/min/{1.73_m2} >=60 [facility] Urea nitrogen [Mass/Vol] 24.0 mg/dL 7.0-18.0 [facility] Amorphous urine sedimenton 0 12-14-2023 Amorphous sediment LM Ql (Urine sed) FEW [facility] Automated epithelial cells c ount in urine sediment (number/area)on 12-14-2023 Epithelial cells Auto (Urine sed) [#/Area] NONE SEEN #/LPF NONE/RARE [facility] Automated leukocytes count i n urine sediment (number/area)on 12-14-2023 WBC Auto (Urine sed) [#/Area] 50-75 #/HPF 0-2 [facility] Automated urine specific gra vity by refractometryon 12-14-2023 Specific gravity Refractometry automated (U) [Rel density] >=1.030 1.005-1.025 [facility] Bilirubin Auto test strip (U ) [Mass/Vol]on 12-14-2023 Bilirubin (U) [Mass/Vol] Negative NEGATIVE [facility] Casts typing in urine sedime nt by light microscopyon 12-14-2023 Casts LM Nom (Urine sed) NONE SEEN #/LPF NONE SEEN [facility] Color Auto (U)on 12-14-2023 Color (U) BROWN YELLOW [facility] Ketones Auto test strip (U) [Mass/Vol]on 12-14-2023 Ketones (U) [Mass/Vol] Negative NEGATIVE [facility] - Microbiology an d Antimicrobial susceptibilityOrdered By: Lesa Estrella on 12-14-2023 Bacteria identified Cx Nom (U) [facility] Mucus LM Ql (Urine sed)on Mucus Ql (Urine sed) SMALL NONE SEEN [facility] No Panel Informationon 12-14 Urine Culture Reflexed YES [facility] Urine Microscopic Review YES [facility] Protein Auto test strip (U) [Mass/Vol]on 12-14-2023 Protein (U) [Mass/Vol] 100 mg/dL NEG/TRACE [facility] Specific gravity Auto test s trip (U) [Rel density]on 12-14-2023 Specific gravity (U) [Rel density] CLEAR CLEAR [facility] Urine bacteria detection by automated methodon 12-14-2023 Bacteria Auto Ql (U) MODERATE #/HPF NONE SEEN [facility] Urine glucose measurement by test strip (mass/volume)on 12-14-2023 Glucose Test strip (U) [Mass/Vol] Negative NEGATIVE [facility] Urine hemoglobin detection b y automated test stripon 12-14-2023 Hemoglobin Auto test strip Ql (U) LARGE NEGATIVE [facility] Urine nitrite detection by a utomated test stripon 12-14-2023 Nitrite Auto test strip Ql (U) SMALL NEGATIVE [facility] Nitrite Auto test strip Ql (U) Positive NEGATIVE [facility] Urine sediment crystal ident ification by light microscopyon 12-14-2023 Crystals LM Nom (Urine sed) Seen #/HPF None Seen [facility] Urine sediment leukocyte cou nt by microscopy (number/high power field)on 12-14-2023 WBC LM.HPF (Urine sed) [#/Area] 5-10 #/HPF NONE SEEN [facility] Urobilinogen Auto test strip (U) [Mass/Vol]on 12-14-2023 Urobilinogen Qn (U) 0.2 {Dae'U}/dL 0.2-1.0 [facility] pH Auto test strip (U)on pH (U) 6.0 [pH] 5.0-9.0 [facility] Creatinine [Mass/volume] in Serum or PlasmaOrdered By: Zofia Gates on 10-23-2023 Creatinine [Mass/Vol] 1.05 mg/dL 0.70-1.30 [facility] No Panel InformationOrdered By: Zofia Gates on 10-23-2023 Estimated GFR (CKD-EPI) > 60.0 mL/Min [facility] Creatinine Clearance (Chem N/A [facility] Urea nitrogen [Mass/volume] in Serum or PlasmaOrdered By: Zofia Gates on 10-23-2023 Urea nitrogen [Mass/Vol] 19 mg/dL 05-14 [facility] LACTATE, BLOODOrdered By: Sa ceasar Dorsey on 10-10-2023 Interpretation and review of laboratory results Normal [facility] Lactate [Moles/Vol] 1.6 mmol/L 0.5 - 1. 6 mmol/L [facility] LT BLUE TOP TUBEon [facility] CBC AND ELECTRONIC DIFFon Basophils (Bld) [#/Vol] K/uL 0.00 - 0.09 K/uL [facility] Basophils/100 WBC (Bld) 0.2 % [facility] Differential cell count method Nom (Bld) Electronic Differential [facility] Eosinophils (Bld) [#/Vol] 0.04 10*3/uL 0.00 - 0.48 K/uL [facility] Eosinophils/100 WBC (Bld) 0.4 % [facility] Erythrocyte distribution width (RBC) [Ratio] 13.9 % 10.9 - 14.3 % [facility] Hematocrit (Bld) [Volume fraction] 44.9 % 39.6 - 48.8 % [facility] Hemoglobin (Bld) [Mass/Vol] 14.4 g/dL 13.4 - 16.8 g/dL [facility] Immature granulocytes (Bld) [#/Vol] K/uL NINF - 0.07 K/uL [facility] Immature granulocytes/100 WBC (Bld) 0.3 % [facility] Interpretation and review of laboratory results Abnormal [facility] Lymphocytes (Bld) [#/Vol] 0.88 10*3/uL 0.83 - 3.57 K/uL [facility] Lymphocytes/100 WBC (Bld) 9.4 % [facility] MCH (RBC) [Entitic mass] 29.7 pg 26.1 - 33.3 pg [facility] MCHC (RBC) [Mass/Vol] 32.1 g/dL 31.9 - 36.5 g/dL [facility] MCV (RBC) [Entitic vol] 92.6 fL 79.0 - 94.5 fL [facility] Monocytes (Bld) [#/Vol] 1.08 10*3/uL High 0.24 - 0.93 K/uL [facility] Monocytes/100 WBC (Bld) 11.5 % [facility] Neutrophils (Bld) [#/Vol] 7.35 10*3/uL High 1.57 - 6.19 K/uL [facility] Nucleated RBC/100 WBC (Bld) [Ratio] 0.0 % [facility] Platelet mean volume (Bld) [Entitic vol] 8.8 fL 8.7 - 12.3 fL [facility] Platelets (Bld) [#/Vol] 206 10*3/uL 146 - 337 K/uL [facility] RBC (Bld) [#/Vol] 4.85 10*6/uL [facility] Segmented neutrophils/100 WBC (Bld) 78.2 % [facility] WBC (Bld) [#/Vol] 9.40 10*3/uL 3.73 - 10.10 K/uL [facility] CHEM 6 (LYTES, BUN CREA)on 1 12-10-2022 Anion gap [Moles/Vol] 11 mmol/L 7 - 17 mmol/L [facility] Chloride [Moles/Vol] 104 mmol/L 98 - 10 8 mmol/L [facility] CO2 [Moles/Vol] 26 mmol/L 21 - 31 mmol/L [facility] Creatinine [Mass/Vol] 0.97 mg/dL 0.70 - 1.30 mg/dL [facility] eGFR, CKD-EPI, Male 77 - PINF [facility] Comment on above: Reported eGFR is bas ed on the CKD-EPI 2020 equation using creatinine, age, and sex. Potassium [Moles/Vol] 4.0 mmol/L 3.5 - 5.0 mmol/L [facility] Sodium [Moles/Vol] 137 mmol/L 135 - 145 mmol/L [facility] Urea nitrogen [Mass/Vol] 23 mg/dL 7 - 25 mg/dL [facility] Urea nitrogen/Creatinine [Mass ratio] 24 mg/mg [facility] GLUCOSEon 10-09-2023 Glucose [Mass/Vol] 123 mg/dL High 70 - 99 mg/dL [facility] HEPATIC FUNCTION PANELon Albumin [Mass/Vol] 4.4 g/dL 3.5 - 5.0 g/dL [facility] ALP [Catalytic activity/Vol] 57 U/L 32 - 126 U/L [facility] ALT [Catalytic activity/Vol] 8 U/L Low 10 - 52 U/L [facility] AST [Catalytic activity/Vol] 15 U/L 10 - 39 U/L [facility] Bilirubin [Mass/Vol] 0.7 mg/dL [facility] - 1.5 mg/dL [facility] Bilirubin.direct [Mass/Vol] 0.2 mg/dL NINF - 0.3 mg/dL [facility] Protein [Mass/Vol] 7.3 g/dL 6.4 - 8.3 g/dL [facility] LIPASEon 10-09-2023 Interpretation and review of laboratory results Normal [facility] Lipase [Catalytic activity/Vol] 12 U/L 11 - 82 U/L [facility] No Panel Informationon 10-09 Interpretation and review of laboratory results Abnormal [facility] Echocardiogramon 06-25-2023 Echocardiography [facility] [address] [place] [address], [address], [place] [address] TRANSTHORACIC ECHOCARDIOGRAM REPORT Patient Name: KENNEDY KONG Reading Physician: [id number] Hannah Abraham MD Study Date: 06/25/2023 Referring GEORGE MORGAN Physician: MRN/PID: [id number] PCP: Lesa Estrella Accession/Order#: [id number] Department [facility] Location: Date of : 1935 Fellow: Gender: M Nurse: Admit Date: Retail Consultant: Flores Love RDCS, T Height: 177.80 cm CC Report to: Weight: 83.92 kg Study Type: Echocardiogram BSA: 2.02 m2 Blood Pressure: 110 /64 mmHg Diagnosis/ICD: 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; I51.9-Heart disease, unspecified; 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) Indication: Hyperlipidemia, AR and PTCA-04/22/2023 Procedure/CPT: Echo Complete w Full [id number] Study Detail: The following Echo studies were [...] mmHg PIEDV: 1.64 m/s PADP: 13.8 mmHg [id number] Hannah Abraham MD Electronically signed on 06/25/2023 at 2:13:32 PM Final Normal [facility] Office Visit (Cardiology)on 05-02-2023 Follow-up visit Diagnoses/Problems [...] Aminotransferase, Serum; Status:Active - Retrospective Authorization; Requested for:[id number]; AST; Status:Active - Retrospective Authorization; Requested for:[id number]; Complete Blood Count; Status:Active - Retrospective Authorization; Requested for:[id number]; Echocardiogram; Status:Hold For - Scheduling,Retrospect phillip Authorization; Requested for:[id number]; Lipid Panel; Status:Active - Retrospective Authorization; Requested for:[id number]; SocHx: Never a smoker Tobacco Use Screening; Status:Complete; Done: [id number] Patient Instructions Please bring all medicines, vitamins, [...] gentleman who returns following recent non-ST elevation AR due to occluded obtuse marginal branch with primary revascularization with drug-eluting stent and is doing well. He has mild LV dysfunction, No significant coronary disease, ejection fraction of 45%. 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 Vitals Vital Signs Recorded: [id number] 11:57AM Heart Rate60, L Radial Jcuxbpjw423, LUE, Sitting Hxvjxdtnv74, LUE, Sitting Height5 ft 10 in Nlzhvi643 lb BMI Enibepglko99.54 kg/m2 BSA Calculated2.02 Tobacco Useb) No PHQ-2 [...] time . Signatures Electronically signed by : George Morgan DO; May 02 2023 12:49PM EST (Author) Normal [facility] Tobacco Screening.on 023 Adult depression screening assessment No [facility]-[address]ila 250 DO Work Phone: Fall risk assessment a) No falls within the last year [facility] [address] 250 DO Work Phone: Tobacco use status [facility] b) No [facility] [employer]Shila 250 DO Work Phone: Basophils Auto (Bld) [#/Vol] Ordered By: Ko Morgan on 04-23-2023 Basophils (Bld) [#/Vol] 0.1 10*3/uL 0.0-0.2 [facility] Basophils/100 WBC Auto (Bld) Ordered By: Ko Morgan on 04-23-2023 Basophils/100 WBC (Bld) 0.7 % . [facility] Calcium [Mass/volume] in Ser um or PlasmaOrdered By: Ko Morgan on 04-23-2023 Calcium [Mass/Vol] 8.7 mg/dL 8.6-10.3 [facility] Carbon dioxide, total [Moles /volume] in Serum or PlasmaOrdered By: Ko Morgan on 04-23-2023 CO2 [Moles/Vol] 25.0 mmol/L 21.0-31.0 [facility] Chloride [Moles/volume] in S aimee or PlasmaOrdered By: Ko Morgan on 04-23-2023 Chloride [Moles/Vol] 106 mmol/L 98-107 [facility] Cholesterol [Mass/volume] in Serum or PlasmaOrdered By: Ko Morgan on 04-23-2023 Cholesterol [Mass/Vol] 148 mg/dL 140-200 [facility] Comment on above: Chol less than 200 m g/dl low riskChol 201-239 mg/dl borderline riskChol 240 mg/dl and greater high risk Cholesterol in LDL Calc [Mas s/Vol]Ordered By: Ko Morgan on 04-23-2023 Cholesterol in LDL [Mass/Vol] 73 mg/dL 0-100 [facility] Comment on above: LDL ATP III CLASSIFI CATIONLDL less than 100 mg/dL OptimalLDL 100-129 mg/dL Near or above optimalLDL 130-159 mg/dL Borderline highLDL 160-189 mg/dL HighLDL greater than 189 mg/dL Very high Cholesterol in VLDL Calc [Ma ss/Vol]Ordered By: Ko Morgan on 04-23-2023 Cholesterol in VLDL [Mass/Vol] 19 mg/dL [facility] Creatinine [Mass/volume] in Serum or PlasmaOrdered By: Ko Morgan on 04-23-2023 Creatinine [Mass/Vol] 0.99 mg/dL 0.70-1.30 [facility] Eosinophils Auto (Bld) [#/Vo l]Ordered By: Ko Morgan on 04-23-2023 Eosinophils (Bld) [#/Vol] 0.1 10*3/uL 0.0-0.45 [facility] Eosinophils/100 WBC Auto (Bl d)Ordered By: Ko Morgan on 04-23-2023 Eosinophils/100 WBC (Bld) 1.5 % . [facility] Erythrocyte distribution wid th Auto (RBC) [Ratio]Ordered By: Ko Morgan on 04-23-2023 Erythrocyte distribution width (RBC) [Ratio] 13.6 % 12.0-14.8 [facility] Glucose [Mass/volume] in Ser um or PlasmaOrdered By: Ko Morgan on 04-23-2023 Glucose [Mass/Vol] 110 mg/dL 70-100 [facility] Comment on above: ADA recommended refe rence rangeRandom Glucose Reference Range is dependent on time and content of last meal. Glucose of more than 200 mg/dL in a nonstressed, ambulatory subject supports the diagnosis of Diabetes Mellitus. Hematocrit Auto (Bld) [Volum e fraction]Ordered By: Ko Morgan on 04-23-2023 Hematocrit (Bld) [Volume fraction] 40.6 % 38.8-50.0 [facility] Hemoglobin [Mass/volume] in BloodOrdered By: Ko Morgan on 04-23-2023 Hemoglobin (Bld) [Mass/Vol] 13.4 g/dL 13.0-17.0 [facility] Leukocytes [#/volume] correc ramona for nucleated erythrocytes in Blood by Automated counOrdered By: Ko Morgan on 04-23-2023 WBC corrected for nucl RBC Auto (Bld) [#/Vol] 8.1 10*3/uL 4.1-10.5 [facility] Lymphocytes Auto (Bld) [#/Vo l]Ordered By: Ko Morgan on 04-23-2023 Lymphocytes (Bld) [#/Vol] 0.9 10*3/uL 1.00-4.8 [facility] Lymphocytes/100 WBC Auto (Bl d)Ordered By: Ko Morgan on 04-23-2023 Lymphocytes/100 WBC (Bld) 10.5 % . [facility] MCH Auto (RBC) [Entitic mass ]Ordered By: Ko Morgan on 04-23-2023 MCH (RBC) [Entitic mass] 29.7 pg 27.5-35.2 [facility] MCHC Auto (RBC) [Mass/Vol]Or dered By: Ko Morgan on 04-23-2023 MCHC (RBC) [Mass/Vol] 33.1 g/dL 32.5-35.6 [facility] MCV Auto (RBC) [Entitic vol] Ordered By: Ko Morgan on 04-23-2023 MCV (RBC) [Entitic vol] 89.8 fL 83.5-101 F [facility] Monocytes Auto (Bld) [#/Vol] Ordered By: Ko Morgan on 04-23-2023 Monocytes (Bld) [#/Vol] 1.1 10*3/uL 0.0-0.8 [facility] Monocytes/100 WBC Auto (Bld) Ordered By: Ko Morgan on 04-23-2023 Monocytes/100 WBC (Bld) 14.1 % . [facility] Neutrophils Auto (Bld) [#/Vo l]Ordered By: Ko Morgan on 04-23-2023 Neutrophils (Bld) [#/Vol] 5.9 10*3/uL 1.8-7.7 [facility] Neutrophils/100 WBC Auto (Bl d)Ordered By: Ko Morgan on 04-23-2023 Neutrophils/100 WBC (Bld) 73.2 % . [facility] No Panel InformationOrdered By: Ko Morgan on 04-23-2023 Estimated GFR (CKD-EPI) > 60.0 mL/Min [facility] Creatinine Clearance (Chem 55.30 [facility] Nucleated erythrocytes [Pres ence] in Blood by Automated countOrdered By: Ko Morgan on 04-23-2023 Nucleated RBC Auto Ql (Bld) 0.1 /100{WBC} 0-0.5 [facility] Platelet mean volume Auto (B ld) [Entitic vol]Ordered By: Ko Morgan on 04-23-2023 Platelet mean volume (Bld) [Entitic vol] 6.8 fL 6.6-10.1 [facility] Platelets Auto (Bld) [#/Vol] Ordered By: Ko Morgan on 04-23-2023 Platelets (Bld) [#/Vol] 215 10*3/uL 150-450 [facility] Potassium [Moles/volume] in Serum or PlasmaOrdered By: Ko Morgan on 04-23-2023 Potassium [Moles/Vol] 4.5 mmol/L 3.5-5.1 [facility] RBC Auto (Bld) [#/Vol]Ordere d By: Ko Morgan on 04-23-2023 RBC (Bld) [#/Vol] 4.52 10*6/uL 3.90-5.60 [facility] Serum or plasma anion gap de terminationOrdered By: Ko Morgan on 04-23-2023 Anion gap [Moles/Vol] 10.5 mmol/L 6.0-15.0 [facility] Serum or plasma high density lipoprotein (HDL) cholesterol measurementOrdered By: Ko Morgan on 04-23-2023 Cholesterol in HDL [Mass/Vol] 56 mg/dL 23-92 [facility] Comment on above: HDL CHOL ATP-III CLA SSIFICATION Cardiovascular RiskHDL > or equal to 60 mg/dL LOWHDL < 40 mg/dL HIGH Serum or plasma total choles terol/high density lipoprotein (HDL) cholesterol mass ratOrdered By: Ko Morgan on 04-23-2023 Cholesterol.total/Drea sterol in HDL [Mass ratio] 2.6 {ratio} <5.0 [facility] Sodium [Moles/volume] in Ser um or PlasmaOrdered By: Ko Morgan on 04-23-2023 Sodium [Moles/Vol] 137 mmol/L 136-145 [facility] Triglyceride [Mass/volume] i n Serum or PlasmaOrdered By: Ko Morgan on 04-23-2023 Triglyceride [Mass/Vol] 97 mg/dL 0-149 [facility] Comment on above: TRIG ATP III CLASSIF ICATIONTRIG less than 150 mg/dL NormalTRIG 150-199 mg/dL Borderline highTRIG 200-500 mg/dL High TRIG greater than 500 mg/dL Very highStandard traceable to the Center for Disease Conrtrol and Prevention (CDC) test method. Troponin I.cardiac [Mass/vol ume] in Serum or Plasma by Detection limit <= 0.01 ng/Ordered By: Ko Morgan on 04-23-2023 Troponin I.cardiac DL <= 0.01 ng/mL [Mass/Vol] 11210.2 pg/mL 0.0-20.0 [facility] Comment on above: Critical Result : Ca lled to and read back by: STACY JACKSON at: 04/23/2023 04:24:25 by:[id number] Urea nitrogen [Mass/volume] in Serum or PlasmaOrdered By: Ko Morgan on 04-23-2023 Urea nitrogen [Mass/Vol] 24 mg/dL 7- [facility] WBC Auto (Bld) [#/Vol]Ordere d By: Ko Morgan on 04-23-2023 WBC (Bld) [#/Vol] 8.1 10*3/uL 4.1-10.5 [facility] CBC AUTO DIFFon 12-27-2022 BASO # 0.0 103/ul Normal 0.0-0.1 [facility] Comment on above: Performed By: #### C BC ####[facility] [address] [place], [place] [address]DrWesley Patton Basophils/100 WBC (Bld) 0.6 % Normal 0.2-2.[address] [facility] Comment on above: Performed By: #### C BC ####[facility] [address] [place], [place] [address]DrWesley Patton EO # 0.5 103/ul Normal 0.0-0.7 [facility] Comment on above: Performed By: #### C BC ####[facility] [address] [place] [address]DrWesley Patton Eosinophils/100 WBC (Bld) 7.0 % Normal 0.9-7.0 [facility] Comment on above: Performed By: #### C BC ####[facility] [address] [place], [place] [address]DrWesley Patton Erythrocyte distribution width (RBC) [Ratio] 13.6 % Normal 11.0-15.0 [facility] Comment on above: Performed By: #### C BC ####[facility] [address] [place], [place] [address]DrWesley Patton Hematocrit (Bld) [Volume fraction] 41.9 % Critically low 42.0-54.0 [facility] Comment on above: Performed By: #### C BC ####[facility] [address] [place] [address]Dr. Cipriano Patton Hemoglobin (Bld) [Mass/Vol] 13.7 g/dL Critically low 14.0-18.0 [facility] Comment on above: Performed By: #### C BC ####[facility] [address] [place] [address]Dr. Cipriano Patton IG # 0.01 10e3/ul Normal 0.00-0.03 [facility] Comment on above: Performed By: #### C BC ####[facility] [address] [place] [address]Dr. Cipriano Patton IG % 0.2 % Normal 0.0-0.5 [facility] Comment on above: Performed By: #### C BC ####[facility] [address] [place], [place] [address]Dr. Cipriano Patton LYMPH # 1.3 103/ul Normal 1.2-3.8 [facility] Comment on above: Performed By: #### C BC ####[facility] [address] [place], [place] [address]DrWesley Patton Lymphocytes/100 WBC (Bld) 19.5 % Critically low 20.5-60.0 [facility] Comment on above: Performed By: #### C BC ####[facility] [address] [place], [place] [address]DrWesley Patton MANUAL DIFF REQ NO Normal The [facility] Comment on above: Performed By: #### C BC ####[facility] [address] [place] [address]DrWesley Patton MCH (RBC) [Entitic mass] 29.4 pg Normal 25.9-34.0 [facility] Comment on above: Performed By: #### C BC ####[facility] [address] [place], [place] [address]Dr. Cipriano Patton MCHC (RBC) [Mass/Vol] 32.7 g/dL Normal 29.9-35.2 [facility] Comment on above: Performed By: #### C BC ####[facility] [address] [place] [id number] Lamjennifer Abdi MCV (RBC) [Entitic vol] 89.9 fL Normal 80.0-94.[address] [facility] Comment on above: Performed By: #### C BC ####[facility] [address] [place], [place] [address]DrWesley Patton MONO # 0.9 103/ul Critically high 0.3-0.8 [facility] Comment on above: Performed By: #### C BC ####[facility] [address] [place], [place] [address]DrWesley Patton Monocytes/100 WBC (Bld) 14.7 % Critically high 1.7-12. 0 [facility] Comment on above: Performed By: #### C BC ####[facility] [address] [place], [place] [address]DrWesley Patton NEUT # 3.7 103/ul Normal 1.4-6.5 [facility] Comment on above: Performed By: #### C BC ####[facility] [address] [place], [place] [address]DrWesley Patton Neutrophils/100 WBC (Bld) 58.0 % Normal 43.0-75.0 [facility] Comment on above: Performed By: #### C BC ####[facility] [address] [place], [place] [address]DrWesley Patton Platelet mean volume (Bld) [Entitic vol] 8.5 fL Critically low 9.5-13.5 [facility] Comment on above: Performed By: #### C BC ####[facility] [address] [place], [place] [address]DrWesley Patton PLT 215 103/ul Normal 150-450 [facility] Comment on above: Performed By: #### C BC ####[facility] [address] [place], [place] [id number]. Cipriano Patton RBC 4.66 106/ul Critically low 4.70-6.10 [facility] Comment on above: Performed By: #### C BC ####[facility] [address] [place] [id number]. Cipriano Patton WBC 6.4 103/ul Normal 4.0-11.0 [facility] Comment on above: Performed By: #### C BC ####[facility] [address] [place] [id number]. Cipriano Patton Complete Blood Count and Dif marci 12-27-2022 Anisocytosis Ql (Bld) [facility] [employer] Other Basophilic stippling LM Ql (Bld) [facility] [employer] Other RBC morphology finding Nom (Bld) [facility] [employer] Other Complete Blood Count and Diff [facility] [employer] Other FERRITINon 12-27-2022 Ferritin [Mass/Vol] 130.0 ng/mL Normal 26.0-388.0 [facility] Comment on above: Performed By: #### F ERR, FETIBC, B12FOL ####[facility] [address] [place] [address]Dr. Cipriano Patton IRON AND TIBCon 12-27-2022 Iron [Mass/Vol] 91.1564004 ug/dL 65.0-175 .0 ug/dL [facility] [employer] Other IRON AND TIBC 257.0 ug/dL 250.0-450.0 ug/dL [employer] [facility] [employer] Other IRON AND TIBC 35.4 % [employer] [facility] [employer] Other IRON AND TIBC see note [facility] [employer] Other % SATURATION 35.4 % Normal [facility] Comment on above: Performed By: #### F ERR, FETIBC, B12FOL ####[facility] [address] [place] [id number]. Cipriano Patton Iron [Mass/Vol] 91.0 ug/dL Normal 65.0-175.0 [facility] Comment on above: Performed By: #### F ERR, FETIBC, B12FOL ####[facility] [address] [place] [id number]. Cipriano Patton TIBC DIRECT 257.0 ug/dL Normal 250.0-450.0 [facility] Comment on above: Performed By: #### F ERR, FETIBC, B12FOL ####[facility] [address] [place] [id number]. Cipriano aPtton VIT B12 AND FOLATEon 023 Cobalamin (Vitamin B12) [Mass/Vol] 685.1697510 pg/mL 193.0-986.0 pg/mL [employer] [facility] [employer] Other VIT B12 AND FOLATE 27.50 ng/mL 8.60-58.9 0 ng/mL [employer] Other Cobalamin (Vitamin B12) [Mass/Vol] 628.0 pg/mL Normal 193.0-986.0 [facility] Comment on above: Performed By: #### F ERR, FETIBC, B12FOL ####[facility] [address] [place] [address]Dr. Cipriano Patton FOLATE 27.50 ng/mL Normal 8.60-58.90 [facility] Comment on above: Performed By: #### F ERR, FETIBC, B12FOL ####[facility] [address] [place] [address]Dr. Cipriano Patton CBC,PLATELETSon 11-05-2022 Hematocrit (Bld) [Volume fraction] 40.7 % Normal 39.6-48.8 [facility] Comment on above: Performed By: #### ARCHIE GREENE CHM7 #### [facility] (DEFAULT) [address] [place] [address] Hemoglobin (Bld) [Mass/Vol] 13.5 g/dL Normal 13.4-16.8 [facility] Comment on above: Performed By: #### ARCHIE GREENE CHM7 #### [facility] (DEFAULT) [address] [place] [address]43 MCV (RBC) [Entitic vol] 89.1 fL Normal 79.0-94.5 [facility] Comment on above: Performed By: #### ARCHIE GREENE, CHM7 #### [facility] (DEFAULT) [address] [place] [address] 46408 Mean Cell Hgb 29.5 pg Normal 26.1-33.3 [facility] Comment on above: Performed By: #### ARCHIE GREENE, CHM7 #### [facility] (DEFAULT) [address] [place] [address] 22520 Mean Cell Hgb Conc 33.2 g/dL Normal 31.9-36.5 [facility] Comment on above: Performed By: #### ARCHIE GREENE, CHM7 #### [facility] (DEFAULT) [address] [place] [address] 49155 Platelet mean volume (Bld) [Entitic vol] 9.1 fL Normal 8.7-12.3 [facility] Comment on above: Performed By: #### ARCHIE GREENE, CHM7 #### [facility] (DEFAULT) [address] [place] [address]75 Platelets (Bld) [#/Vol] 209 10*3/uL Normal 146-337 [facility] Comment on above: Performed By: #### ARCHIE GREENE, CHM7 #### [facility] (DEFAULT) [address] [place] [address] 15549 RBC (Bld) [#/Vol] 4.57 10*6/uL Normal 4.38-5.83 [facility] Comment on above: Performed By: #### ARCHIE GREENE, CHM7 #### [facility] (DEFAULT) [address] [place] [address] 15002 RBC Distribution 12.9 % Normal 10.9-14.3 [facility] Comment on above: Performed By: #### ARCHIE GREENE, CHM7 #### [facility] (DEFAULT) [address] [place] [address] 97311 WBC (Bld) [#/Vol] 6.15 10*3/uL Normal 3.73-10.10 [facility] Comment on above: Performed By: #### ARCHIE GREENE, CHM7 #### [facility] (DEFAULT) [address] [place] [address] 70714 CHEM 7 (LYTES,BUN,CREA,GLUC) on 11-05-2022 Anion gap [Moles/Vol] 15 mmol/L Normal 7-17 [facility] Comment on above: Performed By: #### ARCHIE GREENE, CHM7 #### [facility] (DEFAULT) [address] [place] [address] 87301 Chloride [Moles/Vol] 105 mmol/L Normal 98-108 [facility] Comment on above: Performed By: #### ARCHIE GREENE, CHM7 #### [facility] (DEFAULT) [address] [place] [address] 35910 CO2 [Moles/Vol] 22 mmol/L Normal 21-31 [facility] Comment on above: Performed By: #### ARCHIE GREENE, CHM7 #### [facility] (DEFAULT) [address] [place] [address]3636 Creatinine [Mass/Vol] 1.05 mg/dL Normal 0.70-1.30 [facility] Comment on above: Performed By: #### ARCHIE GREENE, CHM7 #### [facility] (DEFAULT) [address] [place] [address] 78692 GFR/1.73 sq M.predicted among non-blacks MDRD (S/P/Bld) [Vol rate/Area] 69 mL/min/{1.73_m2} Normal >=60 [facility] Comment on above: Result Comment: Repo rted eGFR is based on the CKD-EPI 2020 equation using creatinine, age, and sex. Performed By: #### ARCHIE GREENE, CHM7 #### [facility] (DEFAULT) [address] [place] [address] 76789 Glucose [Mass/Vol] 68 mg/dL Low 70-99 [facility] Comment on above: Performed By: #### ARCHIE GREENE, CHM7 #### [facility] (DEFAULT) [address] [place] [address] 60459 Osmolality [Osmolality] 289 mosm/kg Normal 278-305 [facility] Comment on above: Performed By: #### ARCHIE GREENE, CHM7 #### [facility] (DEFAULT) [address] [place] [address] 08698 Potassium [Moles/Vol] 4.2 mmol/L Normal 3.5-5.0 [facility] Comment on above: Performed By: #### ARCHIE GREENE, CHM7 #### [facility] (DEFAULT) [address] [place] [address] 10285 Sodium [Moles/Vol] 138 mmol/L Normal 135-145 [facility] Comment on above: Performed By: #### ARCHIE GREENE, CHM7 #### [facility] (DEFAULT) [address] [place] [address] 65182 Urea nitrogen [Mass/Vol] 17 mg/dL Normal 7-25 [facility] Comment on above: Performed By: #### ARCHIE GREENE, CHM7 #### [facility] (DEFAULT) [address] [place] [address] 61618 Urea nitrogen/Creatinine [Mass ratio] 16 mg/mg Normal [facility] Comment on above: Performed By: #### ARCHIE GREENE, CHM7 #### [facility] (DEFAULT) [address] [place] [address] 58598 HEPATIC FUNCTION PANELon Albumin [Mass/Vol] 3.4 g/dL Low 3.5-5.0 [facility] Comment on above: Performed By: #### M GO, HFP, CHM7 #### [facility] (DEFAULT) [address] [place] [address] 56023 ALP [Catalytic activity/Vol] 47 U/L Normal 32-126 [facility] Comment on above: Performed By: #### M VALENCIA, HFP, CHM7 #### [facility] (DEFAULT) [address] [place] [address] 48793 ALT [Catalytic activity/Vol] 6 U/L Low 10-52 [facility] Comment on above: Performed By: #### M GO, HFP, CHM7 #### [facility] (DEFAULT) [address] [place] [address] 11337 AST [Catalytic activity/Vol] 14 U/L Normal 10-39 [facility] Comment on above: Performed By: #### M VALENCIA, HFP, CHM7 #### [facility] (DEFAULT) [address] [place] [address] 03901 Bilirubin [Mass/Vol] 0.7 mg/dL Normal <1.5 [facility] Comment on above: Performed By: #### M VALENCIA, HFP, CHM7 #### [facility] (DEFAULT) [address] [place] [address] 33164 Bilirubin.indirect [Mass/Vol] 0.1 mg/dL Normal <0.3 [facility] Comment on above: Performed By: #### M VALENCIA, HFP, CHM7 #### [facility] (DEFAULT) [address] [place] [address] 01352 Protein [Mass/Vol] 5.9 g/dL Low 6.4-8.3 [facility] Comment on above: Performed By: #### M VALENCIA, HFP, CHM7 #### [facility] (DEFAULT) [address] [place] [address] 47902 MAGNESIUMon 11-05-2022 Magnesium [Mass/Vol] 1.9 mg/dL Normal 1.6-2.6 [facility] Comment on above: Performed By: #### M VALENCIA, HFP, CHM7 #### [facility] (DEFAULT) [address] [place] [address] 75391 PT,INR,PTTon 11-05-2022 aPTT Coag (Bld) [Time] 33.6 s Normal 24.0-34.3 [facility] Comment on above: Performed By: #### M ARCHIE BIRMINGHAM, CHM7 #### [facility] (DEFAULT) [address] [place] [address] 21083 INR Coag (PPP) [Relative time] 1.2 {INR} High 0.9-1.1 [facility] Comment on above: Performed By: #### M ARCHIE BIRMINGHAM, CHM7 #### [facility] (DEFAULT) [address] [place] [address] 09128 PT Coag (PPP) [Time] 14.8 s High 11.9-14.2 [facility] Comment on above: Performed By: #### M ARCHIE BIRMINGHAM, CHM7 #### [facility] (DEFAULT) [address] [place] [address] 98009 CBC,PLATELETSon 11-04-2022 Hematocrit (Bld) [Volume fraction] 37.3 % Low 39.6-48.8 [facility] Comment on above: Performed By: #### H EMO #### [facility] (DEFAULT) [address] [place] [address] 77475 Hemoglobin (Bld) [Mass/Vol] 12.5 g/dL Low 13.4-16.8 [facility] Comment on above: Performed By: #### H EMOGC #### [facility] (DEFAULT) [address] [place] [address] 41073 MCV (RBC) [Entitic vol] 88.4 fL Normal 79.0-94.5 [facility] Comment on above: Performed By: #### H EMOGC #### [facility] (DEFAULT) [address] [place] [address] 30188 Mean Cell Hgb 29.6 pg Normal 26.1-33.3 [facility] Comment on above: Performed By: #### H EMOGC #### [facility] (DEFAULT) [address] [address] Mean Cell Hgb Conc 33.5 g/dL Normal 31.9-36.5 [facility] Comment on above: Performed By: #### H EMOGC #### [facility] (DEFAULT) [address] [address] Platelet mean volume (Bld) [Entitic vol] 9.0 fL Normal 8.7-12.3 [facility] Comment on above: Performed By: #### H EMOGC #### [facility] (DEFAULT) [address] 14243 Platelets (Bld) [#/Vol] 198 10*3/uL Normal 146-337 [facility] Comment on above: Performed By: #### H EMOGC #### [facility] (DEFAULT) [address] 31816 RBC (Bld) [#/Vol] 4.22 10*6/uL Low 4.38-5.83 [facility] Comment on above: Performed By: #### H EMOGC #### [facility] (DEFAULT) [address] 64885 RBC Distribution 12.9 % Normal 10.9-14.3 [facility] Comment on above: Performed By: #### H EMOGC #### [facility] (DEFAULT) [address] 37160 WBC (Bld) [#/Vol] 5.77 10*3/uL Normal 3.73-10.10 [facility] Comment on above: Performed By: #### H EMOGC #### [facility] (DEFAULT) [address] [address]43 CHEM 7 (LYTES,BUN,CREA,GLUC) on 11-04-2022 Anion gap [Moles/Vol] 10 mmol/L Normal 7-17 [facility] Comment on above: Performed By: #### M ARCHIE BIRMINGHAM, CHM7 #### [facility] (DEFAULT) [address] [place] [address] 06175 Chloride [Moles/Vol] 108 mmol/L Normal 98-108 [facility] Comment on above: Performed By: #### ARCHIE GREENE, CHM7 #### [facility] (DEFAULT) [address] [place] [address] 43232 CO2 [Moles/Vol] 22 mmol/L Normal 21-31 [facility] Comment on above: Performed By: #### ARCHIE GREENE, CHM7 #### [facility] (DEFAULT) [address] [place] [address] 99926 Creatinine [Mass/Vol] 0.91 mg/dL Normal 0.70-1.30 [facility] Comment on above: Performed By: #### ARCHIE GREENE, CHM7 #### [facility] (DEFAULT) [address] [place] [address] 22433 GFR/1.73 sq M.predicted among non-blacks MDRD (S/P/Bld) [Vol rate/Area] 82 mL/min/{1.73_m2} Normal >=60 [facility] Comment on above: Result Comment: Repo rted eGFR is based on the CKD-EPI 2020 equation using creatinine, age, and sex. Performed By: #### ARCHIE GREENE, CHM7 #### [facility] (DEFAULT) [address] [place] [address] 76302 Glucose [Mass/Vol] 81 mg/dL Normal 70-99 [facility] Comment on above: Performed By: #### ARCHIE GREENE, CHM7 #### [facility] (DEFAULT) [address] [place] [address] 30883 Osmolality [Osmolality] 285 mosm/kg Normal 278-305 [facility] Comment on above: Performed By: #### ARCHIE GREENE, CHM7 #### [facility] (DEFAULT) [address] [place] [address] 21303 Potassium [Moles/Vol] 4.0 mmol/L Normal 3.5-5.0 [facility] Comment on above: Performed By: #### M ARCHIE BIRMINGHAM, CHM7 #### [facility] (DEFAULT) [address] [place] [address] 18065 Sodium [Moles/Vol] 136 mmol/L Normal 135-145 [facility] Comment on above: Performed By: #### M ARCHIE BIRMINGHAM, CHM7 #### [facility] (DEFAULT) [address] [place] [address] 21801 Urea nitrogen [Mass/Vol] 15 mg/dL Normal 7-25 [facility] Comment on above: Performed By: #### ARCHIE GREENE, CHM7 #### [facility] (DEFAULT) [address] [place] [address] 60130 Urea nitrogen/Creatinine [Mass ratio] 16 mg/mg Normal [facility] Comment on above: Performed By: #### ARCHIE GREENE, CHM7 #### [facility] (DEFAULT) [address] [place] [address] ABDOMEN/ABDOMEN-PELVIS (I NTERPRETATION - OUTSIDE IMAGE)on [...] disease in the abdomen or pelvis. Normal [facility] CT Abdomen and Pelvison 10-21 IMPRESSION: [...] metastatic disease in the abdomen or pelvis. [facility] Radiology Study observation (narrative) [facility] CT Abdomen and PelvisOrdered By: Samantha Saldaña on 11-04-2022 [facility] Work Phone: HEPATIC FUNCTION PANELon Albumin [Mass/Vol] 3.2 g/dL Low 3.5-5.0 [facility] Comment on above: Performed By: #### M GO, HFP, CHM7 #### [facility] (DEFAULT) [address] [place] [address] 92081 ALP [Catalytic activity/Vol] 41 U/L Normal 32-126 [facility] Comment on above: Performed By: #### M GO, HFP, CHM7 #### [facility] (DEFAULT) [address] [place] [address] 79209 ALT [Catalytic activity/Vol] 7 U/L Low 10-52 [facility] Comment on above: Performed By: #### M GO, HFP, CHM7 #### [facility] (DEFAULT) [address] [place] [address] 33930 AST [Catalytic activity/Vol] 13 U/L Normal 10-39 [facility] Comment on above: Performed By: #### M GO, HFP, CHM7 #### [facility] (DEFAULT) [address] [place] [address] 38230 Bilirubin [Mass/Vol] 0.6 mg/dL Normal <1.5 [facility] Comment on above: Performed By: #### M GO, HFP, CHM7 #### [facility] (DEFAULT) [address] [place] [address] 60348 Bilirubin.indirect [Mass/Vol] 0.1 mg/dL Normal <0.3 [facility] Comment on above: Performed By: #### M GO, HFP, CHM7 #### [facility] (DEFAULT) [address] [place] [address] 94737 Protein [Mass/Vol] 5.6 g/dL Low 6.4-8.3 [facility] Comment on above: Result Comment: Resu lts inconsistent with previous results Performed By: #### M ARCHIE BIRMINGHAM, RENY7 #### [facility] (DEFAULT) [address] [place] [address] 44828 MAGNESIUMon 11-04-2022 Magnesium [Mass/Vol] 1.8 mg/dL Normal 1.6-2.6 [facility] Comment on above: Performed By: #### M ARCHIE BIRMINGHAM, PAULINO #### [facility] (DEFAULT) [address] [place] [address] 73890 PT,INR,PTTon 11-04-2022 aPTT Coag (Bld) [Time] 31.9 s Normal 24.0-34.3 [facility] Comment on above: Performed By: #### P TPTT #### [facility] (DEFAULT) [address] [place] [address] 98780 INR Coag (PPP) [Relative time] 1.1 {INR} Normal 0.9-1.1 [facility] Comment on above: Performed By: #### P TPTT #### [facility] (DEFAULT) [address] [place] [address] 67541 PT Coag (PPP) [Time] 14.3 s High 11.9-14.2 [facility] Comment on above: Performed By: #### P TPTT #### [facility] (DEFAULT) [address] [place] [address] 89637 CALCIUMon 11-03-2022 Calcium [Mass/Vol] 9.4 mg/dL Normal 8.6-10.5 [facility] Comment on above: Performed By: #### M ARCHIE BIRMINGHAM, CHLor #### [facility] (DEFAULT) [address] [place] [address] 05997 CBC AND ELECTRONIC DIFFon Abs Baso Auto < Normal 0.00-0.09 [facility] Comment on above: Performed By: #### L [id number] #### [facility] (DEFAULT) [address] [place] [address] 63188 Basophils/100 WBC (Bld) 0.2 % Normal O [facility] Comment on above: Performed By: #### L AB980 #### [facility] (DEFAULT) [address] [place] [address] 04743 DIFF STATUS Electronic Differential Normal [facility] Comment on above: Performed By: #### L AB980 #### [facility] (DEFAULT) [address] [place] [address] 58305 Eosinophils (Bld) [#/Vol] 0.25 10*3/uL Normal 0.00-0.48 [facility] Comment on above: Performed By: #### L AB980 #### [facility] (DEFAULT) [address] [address] Eosinophils/100 WBC (Bld) 3.0 % Normal [facility] Comment on above: Performed By: #### L AB980 #### [facility] (DEFAULT) [address] [place] [address] 45786 Hematocrit (Bld) [Volume fraction] 43.6 % Normal 39.6-48.8 [facility] Comment on above: Performed By: #### L AB980 #### [facility] (DEFAULT) [address] [place] [address] 75864 Hemoglobin (Bld) [Mass/Vol] 14.5 g/dL Normal 13.4-16.8 [facility] Comment on above: Performed By: #### L AB980 #### [facility] (DEFAULT) [address] [place] [address] 36696 Immature Grans % 0.2 % Normal [facility] Comment on above: Performed By: #### L AB980 #### [facility] (DEFAULT) [address] [place] [address] 01050 Immature Grans Absolute < Normal <=0.07 [facility] Comment on above: Performed By: #### L AB980 #### [facility] (DEFAULT) [address] [address] Lymphocytes (Bld) [#/Vol] 1.05 10*3/uL Normal 0.83-3.57 [facility] Comment on above: Performed By: #### L AB980 #### [facility] (DEFAULT) [address] 25331 Lymphocytes/100 WBC (Bld) 12.5 % Normal [facility] Comment on above: Performed By: #### L AB980 #### [facility] (DEFAULT) [address] 50568 MCV (RBC) [Entitic vol] 89.0 fL Normal 79.0-94.5 [facility] Comment on above: Performed By: #### L AB980 #### [facility] (DEFAULT) [address] 45528 Mean Cell Hgb 29.6 pg Normal 26.1-33.3 [facility] Comment on above: Performed By: #### L AB980 #### [facility] (DEFAULT) [address] 34704 Mean Cell Hgb Conc 33.3 g/dL Normal 31.9-36.5 [facility] Comment on above: Performed By: #### L AB980 #### [facility] (DEFAULT) [address] 96835 Monocytes (Bld) [#/Vol] 1.15 10*3/uL High 0.24-0.93 [facility] Comment on above: Performed By: #### L AB980 #### [facility] (DEFAULT) [address] 39941 Monocytes/100 WBC (Bld) 13.7 % Normal [facility] Comment on above: Performed By: #### L AB980 #### [facility] (DEFAULT) [address] [place] [address] 45532 Nucleated RBC 0.0 /100 WBC Normal <=0.2 [facility] Comment on above: Performed By: #### L [id number] #### [facility] (DEFAULT) [address] [place] [address] 95947 Platelet mean volume (Bld) [Entitic vol] 8.8 fL Normal 8.7-12.3 [facility] Comment on above: Performed By: #### L AB980 #### [facility] (DEFAULT) [address] [place] [address] 12412 Platelets (Bld) [#/Vol] 223 10*3/uL Normal 146-337 [facility] Comment on above: Performed By: #### L AB980 #### [facility] (DEFAULT) [address] [place] [address] 82022 RBC (Bld) [#/Vol] 4.90 10*6/uL Normal 4.38-5.83 [facility] Comment on above: Performed By: #### L AB980 #### [facility] (DEFAULT) [address] 57813 RBC Distribution 12.9 % Normal 10.9-14.3 [facility] Comment on above: Performed By: #### L AB980 #### [facility] (DEFAULT) [address] 96137 Segs + Bands Auto 70.4 % Normal [facility] Comment on above: Performed By: #### L AB980 #### [facility] (DEFAULT) [address] [place] [address] 59447 Segs + Bands,Absolute Auto 5.91 K/uL Normal 1.57-6.19 [facility] Comment on above: Performed By: #### L [id number] #### [facility] (DEFAULT) [address] [place] [address] 47493 WBC (Bld) [#/Vol] 8.40 10*3/uL Normal 3.73-10.10 [facility] Comment on above: Performed By: #### L AB980 #### [facility] (DEFAULT) [address] [place] [address] CBC AUTO DIFFon 11-03-2022 BASO # 0.0 103/ul Normal 0.0-0.1 [facility] Comment on above: Performed By: #### C BC #### [facility] [address] [place] [address] Dr. Cipriano Patton Basophils/100 WBC (Bld) 0.3 % Normal 0.2-2.[address] [facility] Comment on above: Performed By: #### C BC #### [facility] [address] [place] [address] Dr. Cipriano Patton EO # 0.3 103/ul Normal 0.0-0.7 [facility] Comment on above: Performed By: #### C BC #### [facility] [address] [place] [address] Dr. Cipriano Patton Eosinophils/100 WBC (Bld) 4.0 % Normal 0.9-7.0 [facility] Comment on above: Performed By: #### C BC #### [facility] [address] [place] [address] Dr. Cipriano Patton Erythrocyte distribution width (RBC) [Ratio] 13.1 % Normal 11.0-15.0 [facility] Comment on above: Performed By: #### C BC #### [facility] [address] [place] [address] Dr. Cipriano Patton Hematocrit (Bld) [Volume fraction] 41.6 % Critically low 42.0-54.0 [facility] Comment on above: Performed By: #### C BC #### [facility] [address] [place] [address] Dr. Cipriano Patton Hemoglobin (Bld) [Mass/Vol] 14.1 g/dL Normal 14.0-18.0 [facility] Comment on above: Performed By: #### C BC #### [facility] [address] [place] [address] Dr. Cipriano Patton IG # 0.02 10e3/ul Normal 0.00-0.03 [facility] Comment on above: Performed By: #### C BC #### [facility] [address] [place] [address] Dr. Cipriano Patton IG % 0.3 % Normal 0.0-0.5 [facility] Comment on above: Performed By: #### C BC #### [facility] [address] [place] [address] Dr. Cipriano Patton LYMPH # 1.0 103/ul Critically low 1.2-3.8 [facility] Comment on above: Performed By: #### C BC #### [facility] [address] [place] [address] Dr. Cipriano Patton Lymphocytes/100 WBC (Bld) 13.0 % Critically low 20.5-60.0 [facility] Comment on above: Performed By: #### C BC #### [facility] [address] [place] [address] Dr. Cipriano Patton MANUAL DIFF REQ NO Normal [facility] Comment on above: Performed By: #### C BC #### [facility] [address] [place] [address] Dr. Cipriano Patton MCH (RBC) [Entitic mass] 29.6 pg Normal 25.9-34.0 [facility] Comment on above: Performed By: #### C BC #### [facility] [address] [place] [address] Dr. Cipriano Patton MCHC (RBC) [Mass/Vol] 33.9 g/dL Normal 29.9-35.2 [facility] Comment on above: Performed By: #### C BC #### [facility] [address] [place] [address] Dr. Cipriano Patton MCV (RBC) [Entitic vol] 87.2 fL Normal 80.0-94.[address] [facility] Comment on above: Performed By: #### C BC #### [facility] [address] [place] [address] Dr. Cipriano Patton MONO # 0.9 103/ul Critically high 0.3-0.8 [facility] Comment on above: Performed By: #### C BC #### [facility] [address] [address] [address] Cipriano Patton Monocytes/100 WBC (Bld) 12.9 % Critically high 1.7-12. 0 [facility] Comment on above: Performed By: #### C BC #### [facility] [address] [address] [address] Cipriano Patton NEUT # 5.1 103/ul Normal 1.4-6.5 [facility] Comment on above: Performed By: #### C BC #### [facility] [address] [place] [address] Dr. Cipriano Patton Neutrophils/100 WBC (Bld) 69.5 % Normal 43.0-75.0 [facility] Comment on above: Performed By: #### C BC #### [facility] [address] [place] [address] Dr. Cipriano Patton Platelet mean volume (Bld) [Entitic vol] 8.7 fL Critically low 9.5-13.5 [facility] Comment on above: Performed By: #### C BC #### [facility] [address] [place] [address] Dr. Cipriano Patton PLT 216 103/ul Normal 150-450 [facility] Comment on above: Performed By: #### C BC #### [facility] [address] [place] [address] Dr. Cipriano Patton RBC 4.77 106/ul Normal 4.70-6.10 [facility] Comment on above: Performed By: #### C BC #### [facility] [address] [place] [address] Dr. Cipriano Patton WBC 7.3 103/ul Normal 4.0-11.0 [facility] Comment on above: Performed By: #### C BC #### [facility] [address] [place] [address] Dr. Cipriano Patton M 7 - EDon 11-03-2022 Anion gap [Moles/Vol] 11 mmol/L Normal 7-17 [facility] Comment on above: Performed By: #### ARCHIE GREENE, CHM7 #### [facility] (DEFAULT) [address] [place] [address] 04073 Chloride [Moles/Vol] 105 mmol/L Normal 98-108 [facility] Comment on above: Performed By: #### ARCHIE GREENE, CHM7 #### [facility] (DEFAULT) [address] [place] [address] 39601 CO2 [Moles/Vol] 27 mmol/L Normal 21-31 [facility] Comment on above: Performed By: #### ARCHIE GREENE, CHM7 #### [facility] (DEFAULT) [address] [place] [address] 73164 Creatinine [Mass/Vol] 1.02 mg/dL Normal 0.70-1.30 [facility] Comment on above: Performed By: #### ARCHIE GREENE, CHM7 #### [facility] (DEFAULT) [address] [place] [address] 25190 GFR/1.73 sq M.predicted among non-blacks MDRD (S/P/Bld) [Vol rate/Area] 72 mL/min/{1.73_m2} Normal >=60 [facility] Comment on above: Result Comment: Repo rted eGFR is based on the CKD-EPI 2020 equation using creatinine, age, and sex. Performed By: #### ARCHIE GREENE, CHM7 #### [facility] (DEFAULT) [address] [place] [address] 34248 Glucose [Mass/Vol] 97 mg/dL Normal 70-99 [facility] Comment on above: Performed By: #### ARCHIE GREENE, CHM7 #### [facility] (DEFAULT) [address] [place] [address] 20813 Osmolality [Osmolality] 291 mosm/kg Normal 278-305 [facility] Comment on above: Performed By: #### ARCHIE GREENE, CHM7 #### [facility] (DEFAULT) [address] [place] [address] 04499 Potassium [Moles/Vol] 4.6 mmol/L Normal 3.5-5.0 [facility] Comment on above: Performed By: #### M VALENCIA, HFP, CHM7 #### [facility] (DEFAULT) [address] [place] [address] Sodium [Moles/Vol] 138 mmol/L Normal 135-145 [facility] Comment on above: Performed By: #### M VALENCIA, HFP, CHM7 #### [facility] (DEFAULT) [address] [place] [address] [phone] Urea nitrogen [Mass/Vol] 16 mg/dL Normal 7-25 [facility] Comment on above: Performed By: #### M VALENCIA, HFP, CHM7 #### [facility] (DEFAULT) [address] [place] [address] 14267 Urea nitrogen/Creatinine [Mass ratio] 16 mg/mg Normal [facility] Comment on above: Performed By: #### Dinora BIRMINGHAM, HFP, CHM7 #### [facility] (DEFAULT) [address] [place] [address] ABD/PELV W CONon 11-03-19 CT ABD/PELV [...] ANKIT DANIEL Date: 2022-11-03 11:55 Normal [facility] HEPATIC FUNCTION PANELon Albumin [Mass/Vol] 3.9 g/dL Normal 3.5-5.0 [facility] Comment on above: Performed By: #### ARCHIE GREENE, CHM7 #### [facility] (DEFAULT) [address] [place] [address] 65275 ALP [Catalytic activity/Vol] 49 U/L Normal 32-126 [facility] Comment on above: Performed By: #### ARCHIE GREENE, CHM7 #### [facility] (DEFAULT) [address] [place] [address] ALT [Catalytic activity/Vol] 8 U/L Low 10-52 [facility] Comment on above: Performed By: #### ARCHIE GREENE, CHM7 #### [facility] (DEFAULT) [address] [place] [address] 38569 AST [Catalytic activity/Vol] 14 U/L Normal 10-39 [facility] Comment on above: Performed By: #### ARCHIE GREENE, CHM7 #### [facility] (DEFAULT) [address] [place] [address] Bilirubin [Mass/Vol] 0.6 mg/dL Normal <1.5 [facility] Comment on above: Performed By: #### ARCHIE GREENE, CHM7 #### [facility] (DEFAULT) [address] [place] [address] 31987 Bilirubin.indirect [Mass/Vol] 0.1 mg/dL Normal <0.3 [facility] Comment on above: Performed By: #### M ARCHIE BIRMINGHAM, CHM7 #### [facility] (DEFAULT) [address] [place] [address] 73395 Protein [Mass/Vol] 6.8 g/dL Normal 6.4-8.3 [facility] Comment on above: Performed By: #### ARCHIE GREENE, CHM7 #### [facility] (DEFAULT) [address] [place] [address] 89255 LACTATE, WHOLE BLOODon 11-03 Lactate, Whole Blood 1.1 mmol/L Normal 0.5-1.6 [facility] Comment on above: Performed By: #### B GLACT #### [facility] (DEFAULT) [address] [place] [address] 51021 LIPASEon 11-03-2022 Lipase [Catalytic activity/Vol] 13 U/L Normal 11-82 [facility] Comment on above: Performed By: #### ARCHIE GREENE, CHM7 #### [facility] (DEFAULT) [address] [place] [address] 28470 MAGNESIUMon 11-03-2022 Magnesium [Mass/Vol] 2.0 mg/dL Normal 1.6-2.6 [facility] Comment on above: Performed By: #### ARCHIE GREENE, CHM7 #### [facility] (DEFAULT) [address] [place] [address] 32894 PHOSPHATE, INORGANICon 11-03 Phosphorous 3.3 mg/dL Normal 2.2-4.6 [facility] Comment on above: Performed By: #### ARCHIE GREENE, CHM7 #### [facility] (DEFAULT) [address] [place] [address] 39926 PROF 14(COMP METB)on 023 Albumin [Mass/Vol] 3.4 g/dL Normal 3.4-5.0 [facility] Comment on above: Performed By: #### C MP #### [facility] [address] [address] [address] Cipriano Patton Albumin/Globulin [Mass ratio] 1.0 {ratio} Normal [facility] Comment on above: Performed By: #### C MP #### [facility] [address] [place] [address] Dr. Cipriano Patton ALP [Catalytic activity/Vol] 53 U/L Normal 46-116 [facility] Comment on above: Performed By: #### C MP #### [facility] [address] [place] [address] Dr. Cipriano Patton ALT [Catalytic activity/Vol] 13 U/L Critically low 16-63 [facility] Comment on above: Performed By: #### C MP #### [facility] [address] [place] [address] Dr. Cipriano Patton Anion gap [Moles/Vol] 9.3 mmol/L Normal [facility] Comment on above: Performed By: #### C MP #### [facility] [address] [place] [address] Dr. Cipriano Patton AST [Catalytic activity/Vol] 24 U/L Normal 15-37 [facility] Comment on above: Performed By: #### C MP #### [facility] [address] [place] [address] Dr. Cipriano Patton Bilirubin [Mass/Vol] 0.5 mg/dL Normal 0.2-1.0 [facility] Comment on above: Performed By: #### C MP #### [facility] [address] [place] [address] Dr. Cipriano Patton Calcium [Mass/Vol] 9.2 mg/dL Normal 8.5-10.1 [facility] Comment on above: Performed By: #### C MP #### [facility] [address] [place] [address] Dr. Cipriano Patton Chloride [Moles/Vol] 105 mmol/L Normal 98-107 [facility] Comment on above: Performed By: #### C MP #### [facility] [address] [place] [address] Dr. Cipriano Patton CO2 [Moles/Vol] 30.4 mmol/L Normal 21.0-32.0 [facility] Comment on above: Performed By: #### C MP #### [facility] [address] [address] [address] Cipriano Patton Creatinine [Mass/Vol] 1.02 mg/dL Normal 0.70-1.30 [facility] Comment on above: Performed By: #### C MP #### [facility] [address] [address] [address] Cipriano Patton EGFR-AF PALESTINIAN >60 Normal >=60 [facility] Comment on above: Performed By: #### C MP #### [facility] [address] [address] [address] Cipriano Patton EGFR-NON AF PALESTINIAN >60 Normal >=60 [facility] Comment on above: Performed By: #### C MP #### [facility] [address] [place] [address] Dr. Cipriano Patton Globulin (S) [Mass/Vol] 3.3 g/dL Normal [facility] Comment on above: Performed By: #### C MP #### [facility] [address] [place] [address] Dr. Cirpiano Patton Glucose [Mass/Vol] 92 mg/dL Normal 74-106 [facility] Comment on above: Performed By: #### C MP #### [facility] [address] [place] [address] Dr. Cipriano Patton Potassium [Moles/Vol] 4.7 mmol/L Normal 3.5-5.1 [facility] Comment on above: Performed By: #### C MP #### [facility] [address] [address] [address] Cipriano Patton Protein [Mass/Vol] 6.7 g/dL Normal 6.4-8.2 [facility] Comment on above: Performed By: #### C MP #### [facility] [address] [address] [address] Cipriano Patton Sodium [Moles/Vol] 140 mmol/L Normal 136-145 [facility] Comment on above: Performed By: #### C MP #### [facility] [address] [place], [place] [address] Dr. Cipriano Patton Urea nitrogen [Mass/Vol] 18.0 mg/dL Normal 7.0-18.0 [facility] Comment on above: Performed By: #### C MP #### [facility] [address] [address] [address] Cipriano Patton Urea nitrogen/Creatinine [Mass ratio] 17.6 mg/mg Normal [facility] Comment on above: Performed By: #### C MP #### [facility] [address] [address] [address] Cipriano Patton URINALYSISon 11-03-2022 Appearance (U) Clear Normal Clear [facility] Comment on above: Performed By: #### U RIN #### [facility] (DEFAULT) [address] [address] Bacteria ABSENT Normal ABSENT [facility] Comment on above: Performed By: #### U RIN #### [facility] (DEFAULT) [address] [address] Blood Urine Moderate Abnormal Negative [facility] Comment on above: Performed By: #### U RIN #### [facility] (DEFAULT) [address] [place] [address] 24244 Color (U) Yellow Normal Yellow [facility] Comment on above: Performed By: #### U RIN #### [facility] (DEFAULT) [address] [address] Glucose Ql (U) Negative Normal Negative [facility] Comment on above: Performed By: #### U RIN #### [facility] (DEFAULT) [address] [address] Ketones Ql (U) Trace Abnormal Negative [facility] Comment on above: Performed By: #### U RIN #### [facility] (DEFAULT) [address] [place] [address] 84892 Leukocyte esterase Test strip Ql (U) Negative Normal Negative [facility] Comment on above: Performed By: #### U RIN #### [facility] (DEFAULT) [address] [place] [address] 24954 Nitrites Urine Negative Normal Negative [facility] Comment on above: Performed By: #### U RIN #### [facility] (DEFAULT) [address] [place] [address] 54793 pH (U) 5.5 [pH] Normal 5.0-7.0 [facility] Comment on above: Performed By: #### U RIN #### [facility] (DEFAULT) [address] [place] [address] 62156 Protein Urine Negative Normal Negative [facility] Comment on above: Performed By: #### U RIN #### [facility] (DEFAULT) [address] [place] [address] 00392 RBC Urine 6-9 Abnormal 0-2 [facility] Comment on above: Performed By: #### U RIN #### [facility] (DEFAULT) [address] [place] [address] 45606 Specific [place] Urine <= Normal >1.00 1-<1.0 35 [facility] Comment on above: Performed By: #### U RIN #### [facility] (DEFAULT) [address] [place] [address] 22765 Squamous/Epithelial Cells 1/hpf = 1+ Normal 1/hpf = 1+, 2-5/hpf = 2+, 0/hpf = 0+, ABSENT [facility] Comment on above: Performed By: #### U RIN #### [facility] (DEFAULT) [address] [place] [address] 68527 Urobilinogen Urine 0.2 E.U./dL Normal 0.2 E.U/d L, 1.0 E.U/dL [facility] Comment on above: Performed By: #### U RIN #### [facility] (DEFAULT) [address] [place] [address] 91860 WBC Urine 0-5 Normal 0-5 [facility] Comment on above: Performed By: #### U RIN #### [facility] (DEFAULT) [address] [place] [address] URINE CULTUREon 11-03-2022 Bacteria identified Cx Nom (U) No significant growth. Routine cultures are evaluated for significant uro-pathogens >=10,000 CFU/mL Normal [facility] Comment on above: Order Comment: For i ndwelling catheters, specimen collection is acceptable on catheter day 1 and 2 only. Jauregui top vacutainer. Urine must be to the fill line to process (4mls). If minimum volume, send urine in a yellow top vacutainer tube. Performed By: #### U R #### [facility] (DEFAULT) [address] [place] [address] XR ABD FLAT UP_PA Lobo 11-03 XR [...] by: MANAV PARK Date: 2022-11-03 09:52 Normal [facility] GLYCOHEMOGLOBIN A1Con 2021 ADA RECOMMENDATION SEE BELOW Normal [facility] Comment on above: Result Comment: ADA RECOMMENDED LIMIT 4.0 - 6.0 ADA THERAPEUTIC TARGET < 7.0 ACTION SUGGESTED > 7.0 Performed By: #### A 1C #### [facility] [address] [address] [address] Cipriano Patton Glucose [Mass/Vol] 111 mg/dL Normal [facility] Comment on above: Performed By: #### A 1C #### [facility] [address] [address] [address] Cipriano Patton HbA1c (Bld) [Mass fraction] 5.5 % Normal 4.5-6.2 [facility] Comment on above: Performed By: #### A 1C #### [facility] [address] [address] [address] Cipriano Patton PROF CHEM 8 (BAS METB)on Anion gap [Moles/Vol] 9.4 mmol/L Normal [facility] Comment on above: Performed By: #### B MP ####[facility] [address] [address]DrWesley Patton Calcium [Mass/Vol] 9.2 mg/dL Normal 8.5-10.1 [facility] Comment on above: Performed By: #### B MP ####[facility] [address] [address]DrWesley Patton Chloride [Moles/Vol] 103 mmol/L Normal 98-107 [facility] Comment on above: Performed By: #### B MP ####[facility] [address] [address]DrWesley Patton CO2 [Moles/Vol] 30.6 mmol/L Normal 21.0-32.0 [facility] Comment on above: Performed By: #### B MP ####[facility] [address] [address]DrWesley Patton Creatinine [Mass/Vol] 1.06 mg/dL Normal 0.70-1.30 [facility] Comment on above: Performed By: #### B MP ####[facility] [address] [address]Dr. Cipriano Patton EGFR-AF PALESTINIAN >60 Normal >=60 [facility] Comment on above: Performed By: #### B MP ####[facility] [address] [phone] Cipriano Patton EGFR-NON AF PALESTINIAN >60 Normal >=60 [facility] Comment on above: Performed By: #### B MP ####[facility] [address] [phone][address] Cipriano Patton Glucose [Mass/Vol] 96 mg/dL Normal 74-106 [facility] Comment on above: Performed By: #### B MP ####[facility] [address] [phone][address] Cipriano Patton Potassium [Moles/Vol] 5.0 mmol/L Normal 3.5-5.1 [facility] Comment on above: Performed By: #### B MP ####[facility] [address] [address]Dr. Cipriano Patton Sodium [Moles/Vol] 138 mmol/L Normal 136-145 [facility] Comment on above: Performed By: #### B MP ####[facility] [address] [phone][address] Cipriano Patton Urea nitrogen [Mass/Vol] 29.0 mg/dL Critically high 7.0-18.0 [facility] Comment on above: Performed By: #### B MP ####[facility] [address] [address]Dr. Cipriano Patton Urea nitrogen/Creatinine [Mass ratio] 27.4 mg/mg Normal [facility] Comment on above: Performed By: #### B MP ####[facility] [address] [phone][address] Cipriano Patton CBC AUTO DIFFon 07-02-2022 BASO # 0.0 103/ul Normal 0.0-0.1 [facility] Comment on above: Performed By: #### C BC #### [facility] [phone] Cipriano Patton Basophils/100 WBC (Bld) 0.5 % Normal 0.2-2.[address] [facility] Comment on above: Performed By: #### C BC #### [facility] [address] [place] [address] Dr. Cipriano Patton EO # 0.4 103/ul Normal 0.0-0.7 [facility] Comment on above: Performed By: #### C BC #### [facility] [address] [place] [address] Dr. Cipriano Patton Eosinophils/100 WBC (Bld) 6.9 % Normal 0.9-7.0 [facility] Comment on above: Performed By: #### C BC #### [facility] [address] [place] [address] Dr. Cipriano Patton Erythrocyte distribution width (RBC) [Ratio] 13.5 % Normal 11.0-15.0 [facility] Comment on above: Performed By: #### C BC #### [facility] [address] [place] [address] Dr. Cipriano Patton Hematocrit (Bld) [Volume fraction] 42.5 % Normal 42.0-54.0 [facility] Comment on above: Performed By: #### C BC #### [facility] [address] [place] [address] Dr. Cipriano Patton Hemoglobin (Bld) [Mass/Vol] 13.7 g/dL Critically low 14.0-18.0 [facility] Comment on above: Performed By: #### C BC #### [facility] [address] [place] [address] Dr. Cipriano Patton IG # 0.02 10e3/ul Normal 0.00-0.03 [facility] Comment on above: Performed By: #### C BC #### [facility] [address] [place] [address] Dr. Cipriano Patton IG % 0.4 % Normal 0.0-0.5 [facility] Comment on above: Performed By: #### C BC #### [facility] [address] [place] [address] Dr. Cipriano Patton LYMPH # 1.3 103/ul Normal 1.2-3.8 [facility] Comment on above: Performed By: #### C BC #### [facility] [address] [address] [address] Cipriano Patton Lymphocytes/100 WBC (Bld) 23.7 % Normal 20.5-60.0 [facility] Comment on above: Performed By: #### C BC #### [facility] [address] [place] [address] Dr. Cipriano Patton MANUAL DIFF REQ NO Normal [facility] Comment on above: Performed By: #### C BC #### [facility] [address] [place] [address] Dr. Cipriano Patton MCH (RBC) [Entitic mass] 29.4 pg Normal 25.9-34.0 [facility] Comment on above: Performed By: #### C BC #### [facility] [address] [place] [address] Dr. Cipriano Patton MCHC (RBC) [Mass/Vol] 32.2 g/dL Normal 29.9-35.2 [facility] Comment on above: Performed By: #### C BC #### [facility] [address] [place] [address] Dr. Cipriano Patton MCV (RBC) [Entitic vol] 91.2 fL Normal 80.0-94.[address] [facility] Comment on above: Performed By: #### C BC #### [facility] [address] [place] [address] Dr. Cipriano Patton MONO # 0.9 103/ul Critically high 0.3-0.8 [facility] Comment on above: Performed By: #### C BC #### [facility] [address] [place] [address] Dr. Cipriano Patton Monocytes/100 WBC (Bld) 15.8 % Critically high 1.7-12. 0 [facility] Comment on above: Performed By: #### C BC #### [facility] [address] [place] [address] Dr. Cipriano Patton NEUT # 2.9 103/ul Normal 1.4-6.5 [facility] Comment on above: Performed By: #### C BC #### [facility] [address] [address] [address] Cipriano Patton Neutrophils/100 WBC (Bld) 52.7 % Normal 43.0-75.0 [facility] Comment on above: Performed By: #### C BC #### [facility] [address] [address] [address] Cipriano Patton Platelet mean volume (Bld) [Entitic vol] 9.0 fL Critically low 9.5-13.5 [facility] Comment on above: Performed By: #### C BC #### [facility] [address] [address] [address] Cipriano Patton PLT 211 103/ul Normal 150-450 [facility] Comment on above: Performed By: #### C BC #### [facility] [address] [place] [address] Dr. Cipriano Patton RBC 4.66 106/ul Critically low 4.70-6.10 [facility] Comment on above: Performed By: #### C BC #### [facility] [address] [place] [address] Dr. Cipriano Patton WBC 5.5 103/ul Normal 4.0-11.0 [facility] Comment on above: Performed By: #### C BC #### [facility] [address] [place] [address] Dr. Cipriano Patton PROF CHEM 8 (BAS METB)on Anion gap [Moles/Vol] 10.7 mmol/L Normal [facility] Comment on above: Performed By: #### B MP #### [facility] [address] [place] [address] Dr. Cipriano Patton Calcium [Mass/Vol] 8.5 mg/dL Normal 8.5-10.1 [facility] Comment on above: Performed By: #### B MP #### [facility] [address] [place] [address] Dr. Cipriano Patton Chloride [Moles/Vol] 105 mmol/L Normal 98-107 [facility] Comment on above: Performed By: #### B MP #### [facility] [address] [address] [address] Cipriano Patton CO2 [Moles/Vol] 29.4 mmol/L Normal 21.0-32.0 [facility] Comment on above: Performed By: #### B MP #### [facility] [address] [address] [address] Cipriano Patton Creatinine [Mass/Vol] 0.90 mg/dL Normal 0.70-1.30 [facility] Comment on above: Performed By: #### B MP #### [facility] [address] [address] [address] Cipriano Patton EGFR-AF PALESTINIAN >60 Normal >=60 [facility] Comment on above: Performed By: #### B MP #### [facility] [address] [place] [address] Dr. Cipriano Patton EGFR-NON AF PALESTINIAN >60 Normal >=60 [facility] Comment on above: Performed By: #### B MP #### [facility] [address] [address] [address] Cipriano Patton Glucose [Mass/Vol] 82 mg/dL Normal 74-106 [facility] Comment on above: Performed By: #### B MP #### [facility] [address] [address] [address] Cipriano Patton Potassium [Moles/Vol] 4.1 mmol/L Normal 3.5-5.1 [facility] Comment on above: Performed By: #### B MP #### [facility] [address] [address] [address] Cipriano Patton Sodium [Moles/Vol] 141 mmol/L Normal 136-145 [facility] Comment on above: Performed By: #### B MP #### [facility] [address] [place] [address] Dr. Cipriano Patton Urea nitrogen [Mass/Vol] 16.0 mg/dL Normal 7.0-18.0 [facility] Comment on above: Performed By: #### B MP #### [facility] [address] [place] [address] Dr. Cipriano Patton Urea nitrogen/Creatinine [Mass ratio] 17.8 mg/mg Normal [facility] Comment on above: Performed By: #### B #### [facility] [address] [place] [address] Dr. Cipriano Patton Covid-19 PCR ([facility])on 03-21 SARS-CoV-2 (COVID-19) RNA CAIT+probe Ql (Unsp spec) Detected Critically abnormal NOT DETECTED [facility] Comment on above: Result Comment: This test is not yet approved or cleared by the [place] FDA. When there are no FDA-approved or cleared tests available, and other criteria are met, FDA can make tests available under an emergency access mechanism called an Emergency Use Authorization (EUA). The EUA for this test is supported by the [place] of Health and Human Service's (HHS's) declaration [...] longer be used). Performed By: #### C [facility] #### [facility] [address] [place], [place] [id number] Dr. Cipriano Patton VC COMP CONSULTATIONon 03-28 VC COMP CONSULTATION Patient: KENNEDY KONG Exam Date: 03/28/2022 : 1935 Gender:M Ordering : DR LESA ESTRELLA D.O. Admission #: [id number] Family : Order #: [id number] CLICK HERE TO VIEW EXAM RADIOLOGY REPORT [...] hours. 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 The patient denies any signs [...] MD on 03/28/2022 at 10:14 Normal [facility] VC VENOUS REFLUX ROBERTO LMTon 0 03-28-2022 VC VENOUS REFLUX ROBERTO LMT Patient: KENNEDY KONG Exam Date: 03/28/2022 : 1935 Gender:M Ordering : DR LESA ESTRELLA D.O. Admission #: [id number] Family : Order #: [id number] CLICK HERE TO VIEW EXAM RADIOLOGY REPORT [...] compression in area of thrombus Flow: Normal Visual Arts Teacher: Dist/med calf 2.2mm, 0.7s reflux; mid/med calf [...] or chronic thrombus Compressibility: Normal Flow: Normal Visual Arts Teacher: Mid/med 2.6mm, no reflux; dist/med 3.3mm, no reflux Tech Note: Patent varicose vein prox/med 2.3mm, without reflux. Varicose vein mid/ant 2.7mm, without reflux. Hypoechoic avascular structure lt pop fossa that measures 3.1 x 4.2 x 0.9 cm CONCLUSION: 1. 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 Small bilateral incompetent varicose veins 3. 4.2 cm left popliteal cyst Dictated by: Aubrey Vee MD on 03/28/2022 at 09:23 Approved by: Aubrey Vee MD on 03/28/2022 at 09:26 Normal [facility] US MILADIS DOP LEG LTon [...] by: AUBREY CHEUNG Date: 2022-02-07 17:34 Normal [facility] ANES Lisa 11-04-2019 ANES POST HNO ID: [id number] Author: Luigi Snyder Service: Anesthesiology Author Type: [...] 04, 2019 TIME: 3:21 PM PAGER/CONTACT #: [phone] [facility] ANES PREOPon 11-04-2019 ANES PREOP HNO ID: [id number] Author: Seymour Buenrostro Service: Anesthesiology Author Type: [...] 04, 2019 TIME: 2:13 PM PAGER/CONTACT #: [phone] Normal [facility] [facility] HISTORY PHYSICALon 0 HISTORY PHYSICAL HNO ID: [id number] Author: Avel Heath Service: Colorectal Author Type: [...] REMV LENS MATERIAL,PHACOFRAGMT 2009 Cataract Extraction bilateral Prior to Admission medications [...] November 04, 2019 TIME: 1:08 PM PAGER: Normal [facility] PT EDon 11-04-2019 PT ED HNO ID: [id number] Author: Elizabeth Patel RN Service: Nursing Author [...] None Electronically Signed By: Elizabeth Patel RN [facility] PT ED HNO ID: [id number] Author: Harini RomeroRnSusan Yusuf RN Service: ? Author Type: Registered [...] None Electronically Signed By: Harini Yusuf RN [facility] NURSING PROGon 10-08-2019 NURSING PROG HNO ID: [id number] Author: Nathaly RomeroRnSusan Kraft RN Service: Nursing [...] Kraft RN October 08, 2019 8:45 AM [facility] HOSPon 09-24-2019 HOSP Patient:Dustin Kong MRN: [...] notes entered within the past 30 days [facility] ABDOMEN 1 VWon 03-31-2019 ABDOMEN 1 [facility] Department of Radiology [address] [place] [id number] Patient Name: KENNEDY KONG : 1935 [...] 8:30AM , , , Ordering Provider - THERESA ALASTAL , Exam: ABDOMEN 1 VW ABDOMEN [...] documentation Electronically signed by:Kaleb Perry. Transcribed by: [email or web address], User Resident: Electronically Signed by: KALEB PERRY @ 03/31/2019 12:59 PM Normal [facility] Comment on above: Order Comment: , THI S IS FOR A COLONOSCOPY FOR STRICTURE , Appointment Date: 03/31/2019 , Appointment Time: 8:30AM , THIS IS FOR A COLONOSCOPY FOR STRICTURE , Appointment Date: 03/31/2019 , Appointment Time: 8:30AM , , , Ordering Provider - THERESA ALASTAL , Vital Signs Date Time Vital Sign Value Performing Clinician Facility 05-19-2025 08:51-0400 Body height 178.4 cm Eugene Chaparro MD Work Phone: [facility] 05-19-2025 08:51-0400 Body mass index (BMI) [Ratio] 29.28 kg/m2 Eugene Chaparro MD Work Phone: [facility] 05-19-2025 08:51-0400 Body temperature 97.11 [degF] Eugene Chaparro MD Work Phone: [facility] 05-19-2025 08:51-0400 Body weight 93.2 kg Eugene Chaparro MD Work Phone: [facility] 05-19-2025 08:51-0400 Diastolic blood pressure 64 mm[Hg] Eugene Chaparro MD Work Phone: [facility] 05-19-2025 08:51-0400 Heart rate 68 /min Eugene Chaparro MD Work Phone: [facility] 05-19-2025 08:51-0400 Respiratory rate 16 /min Eugene Chaparro MD Work Phone: [facility] 05-19-2025 08:51-0400 SaO2% (BldA) [Mass fraction] 99 % Eugene Chaparro MD Work Phone: [facility] 05-19-2025 08:51-0400 Systolic blood pressure 136 mm[Hg] Eugene Chaparro MD Work Phone: [facility] 03-31-2025 08:20-0400 Body height 177.8 cm Theodora Love APRN-RECORDS MANAGEMENT CLERK Work Phone: [facility] 03-31-2025 08:20-0400 Body mass index (BMI) [Ratio] 26.69 kg/m2 Theodora Love APRN-RECORDS MANAGEMENT CLERK Work Phone: [facility] 03-31-2025 08:20-0400 Body weight 84.37 kg Theodora Love APRN-RECORDS MANAGEMENT CLERK Work Phone: [facility] 03-31-2025 08:20-0400 Diastolic blood pressure 70 mm[Hg] Theodora Love [employer]-RECORDS MANAGEMENT CLERK Work Phone: [facility] 03-31-2025 08:20-0400 Heart rate 68 /min Theodora Love [employer]-RECORDS MANAGEMENT CLERK Work Phone: [facility] 03-31-2025 08:20-0400 Systolic blood pressure 120 mm[Hg] Theodora Love [employer]-RECORDS MANAGEMENT CLERK Work Phone: [facility] 03-23-2025 10:04-0400 Body height 177.8 cm Lesa Ball DO Work Phone: [facility] 03-23-2025 10:04-0400 Body mass index (BMI) [Ratio] 27.1 kg/m2 Lesa Ball DO Work Phone: [facility] 03-23-2025 10:04-0400 Body weight 85.95 kg Lesa Ball DO Work Phone: [facility] 03-23-2025 10:04-0400 Diastolic blood pressure 70 mm[Hg] Lesa Ball DO Work Phone: [facility] 03-23-2025 10:04-0400 Heart rate 73 /min Lesa Ball DO Work Phone: [facility] 03-23-2025 10:04-0400 Respiratory rate 12 /min Lesa Ball DO Work Phone: [facility] 03-23-2025 10:04-0400 Systolic blood pressure 123 mm[Hg] Lesa Ball DO Work Phone: [facility] 03-16-2025 13:32-0400 Body height 177.8 cm Theodora Love [employer]-RECORDS MANAGEMENT CLERK Work Phone: [facility] 03-16-2025 13:32-0400 Body mass index (BMI) [Ratio] 27.41 kg/m2 Theodoradarnell Love [employer]-RECORDS MANAGEMENT CLERK Work Phone: [facility] 03-16-2025 13:32-0400 Body weight 86.64 kg Theodora Love [employer]-RECORDS MANAGEMENT CLERK Work Phone: [facility] 03-16-2025 13:32-0400 Diastolic blood pressure 60 mm[Hg] Theodora Love [employer]-RECORDS MANAGEMENT CLERK Work Phone: [facility] 03-16-2025 13:32-0400 Heart rate 72 /min Theodora Love [employer]-RECORDS MANAGEMENT CLERK Work Phone: [facility] 03-16-2025 13:32-0400 Systolic blood pressure 120 mm[Hg] Theodora Love [employer]-RECORDS MANAGEMENT CLERK Work Phone: [facility] 01-29-2025 08:28-0400 Body mass index (BMI) [Ratio] 26.86 kg/m2 Eugene Chaparro MD Work Phone: [facility] 01-29-2025 08:28-0400 Body temperature 97.11 [degF] Eugene Chaparro MD Work Phone: [facility] 01-29-2025 08:28-0400 Body weight 85.5 kg Eugene Chaparro MD Work Phone: [facility] 01-29-2025 08:28-0400 Diastolic blood pressure 68 mm[Hg] Eugene Chaparro MD Work Phone: [facility] 01-29-2025 08:28-0400 Heart rate 69 /min Eugene Chaparro MD Work Phone: [facility] 01-29-2025 08:28-0400 Respiratory rate 18 /min Eugene Chaparro MD Work Phone: [facility] 01-29-2025 08:28-0400 SaO2% (BldA) [Mass fraction] 100 % Eugene Chaparro MD Work Phone: [facility] 01-29-2025 08:28-0400 Systolic blood pressure 138 mm[Hg] Eugene Cahparro MD Work Phone: [facility] 01-08-2025 08:53-0400 Body height 177.8 cm Kylie Dietrich MD Work Phone: [facility] 01-08-2025 08:53-0400 Body mass index (BMI) [Ratio] 26.4 kg/m2 Kylie Dietrich MD Work Phone: [facility] 01-08-2025 08:53-0400 Body weight 83.51 kg Kylie Dietrich MD Work Phone: [facility] 01-08-2025 08:53-0400 Diastolic blood pressure 65 mm[Hg] Kylie Dietrich MD Work Phone: [facility] 01-08-2025 08:53-0400 Heart rate 75 /min Kylie Dietrich MD Work Phone: [facility] 01-08-2025 08:53-0400 Respiratory rate 16 /min Kylie Dietrich MD Work Phone: [facility] 01-08-2025 08:53-0400 Systolic blood pressure 115 mm[Hg] Kylie Dietrich MD Work Phone: [facility] 12-08-2024 13:49-0500 Body height 177.8 cm Kylie Dietrich MD Work Phone: [facility] 12-08-2024 13:49-0500 Body mass index (BMI) [Ratio] 26.5 kg/m2 Kylie Dietrich MD Work Phone: [facility] 12-08-2024 13:49-0500 Body weight 83.91 kg Kylie Dietrich MD Work Phone: [facility] 12-08-2024 13:49-0500 Diastolic blood pressure 77 mm[Hg] Kylie Dietrich MD Work Phone: [facility] 12-08-2024 13:49-0500 Heart rate 78 /min Kylie Dietrich MD Work Phone: [facility] 12-08-2024 13:49-0500 Respiratory rate 12 /min Kylie Dietrich MD Work Phone: [facility] 12-08-2024 13:49-0500 Systolic blood pressure 120 mm[Hg] Kylie Dietrich MD Work Phone: [facility] 10-28-2024 10:26-0500 Body height 178.4 cm Eugene Chaparro MD Work Phone: [facility] 10-28-2024 10:26-0500 Body mass index (BMI) [Ratio] 26.39 kg/m2 Eugene Chaparro MD Work Phone: [facility] 10-28-2024 10:26-0500 Body temperature 97.7 [degF] Eugene Chaparro MD Work Phone: [facility] 10-28-2024 10:26-0500 Body weight 84 kg Eugene Chaparro MD Work Phone: [facility] 10-28-2024 10:26-0500 Diastolic blood pressure 74 mm[Hg] Eugene Chaparro MD Work Phone: [facility] 10-28-2024 10:26-0500 Heart rate 73 /min Eugene Chaparro MD Work Phone: [facility] 10-28-2024 10:26-0500 Respiratory rate 16 /min Eugene Chaparro MD Work Phone: [facility] 10-28-2024 10:26-0500 SaO2% (BldA) [Mass fraction] 99 % Eugene Chaparro MD Work Phone: [facility] 10-28-2024 10:26-0500 Systolic blood pressure 120 mm[Hg] Eugene Chaparro MD Work Phone: [facility] 10-28-2024 10:05-0500 Body mass index (BMI) [Ratio] 26.39 kg/m2 DARNELL Grajeda MD Work Phone: [facility] 10-28-2024 10:05-0500 Body temperature 97.7 [degF] DARNELL Grajeda MD Work Phone: [facility] 10-28-2024 10:05-0500 Body weight 84 kg DARNELL Grajeda MD Work Phone: [facility] 10-28-2024 10:05-0500 Diastolic blood pressure 74 mm[Hg] DARNELL Grajeda MD Work Phone: [facility] 10-28-2024 10:05-0500 Heart rate 73 /min DARNELL Grajeda MD Work Phone: [facility] 10-28-2024 10:05-0500 Respiratory rate 16 /min DARNELL Grajeda MD Work Phone: [facility] 10-28-2024 10:05-0500 SaO2% (BldA) [Mass fraction] 99 % DARNELL Grajeda MD Work Phone: [facility] 10-28-2024 10:05-0500 Systolic blood pressure 120 mm[Hg] DARNELL Grajeda MD Work Phone: [facility] 09-21-2024 10:10-0500 Body height 177.8 cm Kylie Dietrich MD Work Phone: [facility] 09-21-2024 10:10-0500 Body mass index (BMI) [Ratio] 26.6 kg/m2 Kylie Dietrich MD Work Phone: [facility] 09-21-2024 10:10-0500 Body weight 84.36 kg Kylie Dietrich MD Work Phone: [facility] 09-21-2024 10:10-0500 Diastolic blood pressure 81 mm[Hg] Kylie Dietrich MD Work Phone: [facility] 09-21-2024 10:10-0500 Heart rate 66 /min Kylie Dietrich MD Work Phone: [facility] 09-21-2024 10:10-0500 Respiratory rate 12 /min Kylie Dietrich MD Work Phone: [facility] 09-21-2024 10:10-0500 Systolic blood pressure 120 mm[Hg] Kylie Dietrich MD Work Phone: [facility] 07-21-2024 14:03-0400 Body height 180.[address] [facility] 07-21-2024 14:03-0400 Body mass index (BMI) [Ratio] 25.2 kg/m2 [facility] 07-21-2024 14:03-0400 Body weight [address] [facility] 07-16-2024 08:05-0400 Blood Pressure Location Niki Galea [facility] 07-16-2024 08:05-0400 Body temperature 98.6 [degF] Niki Galea [facility] 07-16-2024 08:05-0400 Diastolic blood pressure 60 mm[Hg] Niki Galea [facility] 07-16-2024 08:05-0400 Heart rate 64 /min Niki Galea [facility] 07-16-2024 08:05-0400 Respiratory rate 16 /min Niki Galea [facility] 07-16-2024 08:05-0400 Systolic blood pressure 107 mm[Hg] Niki Galea [facility] 07-01-2024 10:10-0400 Diastolic blood pressure 71 mm[Hg] Eugene Chaparro MD Work Phone: [facility] Comment on above: recheck 07-01-2024 10:10-0400 Systolic blood pressure 116 mm[Hg] Eugene Chaparro MD Work Phone: [facility] Comment on above: recheck 07-01-2024 10:02-0400 Body height 178.4 cm Eugene Chaparro MD Work Phone: [facility] 07-01-2024 10:02-0400 Body mass index (BMI) [Ratio] 26.71 kg/m2 Eugene Chaparro MD Work Phone: [facility] 07-01-2024 10:02-0400 Body temperature 97.2 [degF] Eugene Chaparro MD Work Phone: [facility] 07-01-2024 10:02-0400 Body weight 85 kg Eugene Chaparro MD Work Phone: [facility] 07-01-2024 10:02-0400 Heart rate 67 /min Eugene Chaparro MD Work Phone: [facility] 07-01-2024 10:02-0400 Respiratory rate 16 /min Eugene Chaparro MD Work Phone: [facility] 07-01-2024 10:02-0400 SaO2% (BldA) [Mass fraction] 98 % Eugene Chaparro MD Work Phone: [facility] 06-08-2024 11:54-0400 Diastolic blood pressure 64 mm[Hg] [facility] 06-08-2024 11:54-0400 Heart rate 69 /min [facility] 06-08-2024 11:54-0400 Respiratory rate 12 /min [facility] 06-08-2024 11:54-0400 Systolic blood pressure 117 mm[Hg] [facility] 03-25-2024 13:14-0400 Body height 178.4 cm Eugene Chaparro MD Work Phone: [facility] 03-25-2024 13:14-0400 Body mass index (BMI) [Ratio] 26.24 kg/m2 Eugene Chaparro MD Work Phone: [facility] 03-25-2024 13:14-0400 Body temperature 97.2 [degF] Eugene Chaparro MD Work Phone: [facility] 03-25-2024 13:14-0400 Body weight 83.5 kg Eugene Chaparro MD Work Phone: [facility] 03-25-2024 13:14-0400 Diastolic blood pressure 65 mm[Hg] Eugene Chaparro MD Work Phone: [facility] 03-25-2024 13:14-0400 Heart rate 70 /min Eugene Chaparro MD Work Phone: [facility] 03-25-2024 13:14-0400 Respiratory rate 16 /min Eugene Chaparro MD Work Phone: [facility] 03-25-2024 13:14-0400 SaO2% (BldA) [Mass fraction] 96 % Eugene Chaparro MD Work Phone: [facility] 03-25-2024 13:14-0400 Systolic blood pressure 113 mm[Hg] Eugene Chaparro MD Work Phone: [facility] 03-19-2024 08:41-0400 Body height 180.[address] [facility] 03-19-2024 08:41-0400 Body mass index (BMI) [Ratio] 25.4 kg/m2 [facility] 03-19-2024 08:41-0400 Body weight 82.[address] [facility] 03-19-2024 08:41-0400 Diastolic blood pressure 60 mm[Hg] [facility] 03-19-2024 08:41-0400 Heart rate 81 /min [facility] 03-19-2024 08:41-0400 Respiratory rate 12 /min [facility] 03-19-2024 08:41-0400 Systolic blood pressure 95 mm[Hg] [facility] 03-02-2024 08:46-0400 Body mass index (BMI) [Ratio] 26.46 kg/m2 DARNELL Grajeda MD Work Phone: [facility] 03-02-2024 08:46-0400 Body temperature 97.7 [degF] DARNELL Grajeda MD Work Phone: [facility] 03-02-2024 08:46-0400 Body weight 84.2 kg DARNELL Grajeda MD Work Phone: [facility] 03-02-2024 08:46-0400 Diastolic blood pressure 74 mm[Hg] DARNELL Grajeda MD Work Phone: [facility] 03-02-2024 08:46-0400 Heart rate 63 /min DARNELL Grajeda MD Work Phone: [facility] 03-02-2024 08:46-0400 Respiratory rate 16 /min DARNELL Grajeda MD Work Phone: [facility] 03-02-2024 08:46-0400 SaO2% (BldA) [Mass fraction] 99 % DARNELL Grajeda MD Work Phone: [facility] 03-02-2024 08:46-0400 Systolic blood pressure 132 mm[Hg] DARNELL Grajeda MD Work Phone: [facility] 02-26-2024 09:55-0400 Body height 178.4 cm Eugene Chaparro MD Work Phone: [facility] 02-26-2024 09:55-0400 Body mass index (BMI) [Ratio] 26.42 kg/m2 Eugene Chaparro MD Work Phone: [facility] 02-26-2024 09:55-0400 Body temperature 97.81 [degF] Eugene Chaparro MD Work Phone: [facility] 02-26-2024 09:55-0400 Body weight 84.1 kg Eugene Chaparro MD Work Phone: [facility] 02-26-2024 09:55-0400 Diastolic blood pressure 61 mm[Hg] Eugene Chaparro MD Work Phone: [facility] 02-26-2024 09:55-0400 Heart rate 70 /min Eugene Chaparro MD Work Phone: [facility] 02-26-2024 09:55-0400 Respiratory rate 16 /min Eugene Chaparro MD Work Phone: [facility] 02-26-2024 09:55-0400 SaO2% (BldA) [Mass fraction] 98 % Eugene Chaparro MD Work Phone: [facility] 02-26-2024 09:55-0400 Systolic blood pressure 108 mm[Hg] Eugene Chaparro MD Work Phone: [facility] 02-24-2024 09:38-0400 Body mass index (BMI) [Ratio] 26.68 kg/m2 DARNELL Grajeda MD Work Phone: [facility] 02-24-2024 09:38-0400 Body temperature 97.3 [degF] DARNELL Grajeda MD Work Phone: [facility] 02-24-2024 09:38-0400 Body weight 84.9 kg DARNELL Grajeda MD Work Phone: [facility] 02-24-2024 09:38-0400 Diastolic blood pressure 75 mm[Hg] DARNELL Grajeda MD Work Phone: [facility] 02-24-2024 09:38-0400 Heart rate 69 /min DARNELL Grajeda MD Work Phone: [facility] 02-24-2024 09:38-0400 Respiratory rate 16 /min DARNELL Grajeda MD Work Phone: [facility] 02-24-2024 09:38-0400 SaO2% (BldA) [Mass fraction] 99 % DARNELL Grajeda MD Work Phone: [facility] 02-24-2024 09:38-0400 Systolic blood pressure 147 mm[Hg] DARNELL Grajeda MD Work Phone: [facility] 02-21-2024 09:39-0400 Body temperature 97.5 [degF] [facility] Work Phone: [facility] 02-21-2024 09:39-0400 Diastolic blood pressure 84 mm[Hg] [place] Work Phone: [facility] 02-21-2024 09:39-0400 Heart rate 56 /min [facility]/[place] Work Phone: [facility] 02-21-2024 09:39-0400 Respiratory rate 18 /min [facility] Work Phone: [facility] 02-21-2024 09:39-0400 SaO2% (BldA) [Mass fraction] 98 % [facility] Work Phone: [facility] 02-21-2024 09:39-0400 Systolic blood pressure 167 mm[Hg] [facility] Work Phone: [facility] 02-21-2024 09:36-0400 Body temperature 97.5 [degF] Eugene Chaparro MD Work Phone: [facility] 02-21-2024 09:36-0400 Diastolic blood pressure 84 mm[Hg] Eugene Chaparro MD Work Phone: [facility] 02-21-2024 09:36-0400 Heart rate 56 /min Eugene Chaparro MD Work Phone: [facility] 02-21-2024 09:36-0400 Respiratory rate 18 /min Eugene Chaparro MD Work Phone: [facility] 02-21-2024 09:36-0400 SaO2% (BldA) [Mass fraction] 98 % Eugene Chaparro MD Work Phone: [facility] 02-21-2024 09:36-0400 Systolic blood pressure 167 mm[Hg] Eugene Chaparro MD Work Phone: [facility] 02-19-2024 09:40-0400 Body temperature 98.01 [degF] [facility] [place] Work Phone: [facility] 02-19-2024 09:40-0400 Diastolic blood pressure 69 mm[Hg] [place] Work Phone: [facility] 02-19-2024 09:40-0400 Heart rate 63 /min [facility] [place] Work Phone: [facility] 02-19-2024 09:40-0400 Respiratory rate 18 /min [facility] [place] Work Phone: [facility] 02-19-2024 09:40-0400 SaO2% (BldA) [Mass fraction] 98 % [facility] [place] Work Phone: [facility] 02-19-2024 09:40-0400 Systolic blood pressure 123 mm[Hg] [place] Work Phone: [facility] 02-19-2024 09:33-0400 Body height 178.4 cm [facility] [place] Work Phone: [facility] Comment on above: previously verified. 02-19-2024 09:33-0400 Body mass index (BMI) [Ratio] 26.33 kg/m2 [facility] [place] Work Phone: [facility] 02-19-2024 09:33-0400 Body weight 83.8 kg [facility] [place] Work Phone: [facility] Comment on above: with boots on 02-17-2024 09:32-0400 Body mass index (BMI) [Ratio] 26.58 kg/m2 DARNELL Grajeda MD Work Phone: [facility] 02-17-2024 09:32-0400 Body temperature 97.2 [degF] DARNELL Grajeda MD Work Phone: [facility] 02-17-2024 09:32-0400 Body weight 84.6 kg DARNELL Grajeda MD Work Phone: [facility] 02-17-2024 09:32-0400 Diastolic blood pressure 67 mm[Hg] DARNELL Grajeda MD Work Phone: [facility] 02-17-2024 09:32-0400 Heart rate 66 /min DARNELL Grajeda MD Work Phone: [facility] 02-17-2024 09:32-0400 Respiratory rate 16 /min DARNELL Grajeda MD Work Phone: [facility] 02-17-2024 09:32-0400 SaO2% (BldA) [Mass fraction] 99 % DARNELL Grajeda MD Work Phone: [facility] 02-17-2024 09:32-0400 Systolic blood pressure 136 mm[Hg] NA Michael CHOI Work Phone: [facility] 02-12-2024 14:30-0400 Diastolic blood pressure 65 mm[Hg] [place] Work Phone: [facility] 02-12-2024 14:30-0400 Systolic blood pressure 123 mm[Hg] Chair [place] Work Phone: [facility] 02-12-2024 09:46-0400 Body height 178.4 cm Eugene Chaparro MD Work Phone: [facility] 02-12-2024 09:46-0400 Body mass index (BMI) [Ratio] 26.49 kg/m2 Eugeen Chaparro MD Work Phone: [facility] 02-12-2024 09:46-0400 Body temperature 97.3 [degF] Eugene Chaparro MD Work Phone: [facility] 02-12-2024 09:46-0400 Body weight 84.3 kg Eugene Chaparro MD Work Phone: [facility] 02-12-2024 09:46-0400 Diastolic blood pressure 66 mm[Hg] Eugene Chaparro MD Work Phone: [facility] 02-12-2024 09:46-0400 Heart rate 71 /min Eugene Chaparro MD Work Phone: [facility] 02-12-2024 09:46-0400 Respiratory rate 16 /min Eugene Chaparro MD Work Phone: [facility] 02-12-2024 09:46-0400 SaO2% (BldA) [Mass fraction] 99 % Eugene Chaparro MD Work Phone: [facility] 02-12-2024 09:46-0400 Systolic blood pressure 127 mm[Hg] Eugene Chaparro MD Work Phone: [facility] 02-10-2024 09:50-0400 Body mass index (BMI) [Ratio] 27.05 kg/m2 DARNELL Grajeda MD Work Phone: [facility] 02-10-2024 09:50-0400 Body temperature 96.91 [degF] DARNELL Grajeda MD Work Phone: [facility] 02-10-2024 09:50-0400 Body weight 86.09 kg DARNELL Grajeda MD Work Phone: [facility] 02-10-2024 09:50-0400 Diastolic blood pressure 60 mm[Hg] DARNELL Grajeda MD Work Phone: [facility] 02-10-2024 09:50-0400 Heart rate 68 /min DARNELL Garjeda MD Work Phone: [facility] 02-10-2024 09:50-0400 Respiratory rate 18 /min DARNELL Grajead MD Work Phone: [facility] 02-10-2024 09:50-0400 Systolic blood pressure 120 mm[Hg] DARNELL Grajeda MD Work Phone: [facility] 02-06-2024 09:00-0400 Body temperature 97.7 [degF] Chair [place] Work Phone: [facility] 02-06-2024 09:00-0400 Diastolic blood pressure 72 mm[Hg] Chair Shila Work Phone: [facility] 02-06-2024 09:00-0400 Heart rate 70 /min Chair Shila Work Phone: [facility] 02-06-2024 09:00-0400 Respiratory rate 18 /min Chair Shila Work Phone: [facility] 02-06-2024 09:00-0400 SaO2% (BldA) [Mass fraction] 99 % Chair [place] Work Phone: [facility] 02-06-2024 09:00-0400 Systolic blood pressure 126 mm[Hg] Chair [place] Work Phone: [facility] 02-05-2024 09:08-0400 Body height 178.4 cm Ashlyn Sibley [employer] MANAGEMENT CLERK Work Phone: [facility] 02-05-2024 09:08-0400 Body temperature 97.2 [degF] Ashlyn Sibley [employer]RECORDS MANAGEMENT CLERK Work Phone: [facility] 02-05-2024 09:08-0400 Body weight 84.1 kg Ashlyn Sibley APRN.RECORDS MANAGEMENT CLERK Work Phone: [facility] 02-05-2024 09:08-0400 Diastolic blood pressure 54 mm[Hg] Ashlyn Sibley APRN.RECORDS MANAGEMENT CLERK Work Phone: [facility] 02-05-2024 09:08-0400 Heart rate 63 /min Ashlyn Sibley APRN.RECORDS MANAGEMENT CLERK Work Phone: [facility] 02-05-2024 09:08-0400 Respiratory rate 16 /min Ashlyn Sibley APRN.RECORDS MANAGEMENT CLERK Work Phone: [facility] 02-05-2024 09:08-0400 SaO2% (BldA) [Mass fraction] 98 % Ashlyn Sibley APRN.RECORDS MANAGEMENT CLERK Work Phone: [facility] 02-05-2024 09:08-0400 Systolic blood pressure 121 mm[Hg] Ashlyn Sibley APRN.RECORDS MANAGEMENT CLERK Work Phone: [facility] 01-28-2024 08:33-0400 Body height 178.4 cm Jasmine Saunders PA-C Work Phone: [facility] 01-28-2024 08:33-0400 Body temperature 97.5 [degF] Jasmine Nicky PA-C Work Phone: [facility] 01-28-2024 08:33-0400 Body weight 84.4 kg Jasmine Nicky PA-C Work Phone: [facility] 01-28-2024 08:33-0400 Diastolic blood pressure 60 mm[Hg] Jasmine Nicky PA-C Work Phone: [facility] 01-28-2024 08:33-0400 Heart rate 75 /min Jasmine Nicky PA-C Work Phone: [facility] 01-28-2024 08:33-0400 Respiratory rate 16 /min Jasmine Nicky PA-C Work Phone: [facility] 01-28-2024 08:33-0400 SaO2% (BldA) [Mass fraction] 98 % Jasmine Nicky PA-C Work Phone: [facility] 01-28-2024 08:33-0400 Systolic blood pressure 112 mm[Hg] Jasmine Nicky PA-C Work Phone: [facility] 01-20-2024 13:08-0400 Diastolic blood pressure 85 mm[Hg] Chair [place] Work Phone: [facility] 01-20-2024 13:08-0400 Systolic blood pressure 136 mm[Hg] Chair Shila Work Phone: [facility] 01-20-2024 09:00-0400 Body height 178.4 cm Chair Shila Work Phone: [facility] 01-20-2024 08:59-0400 Body height 177.8 cm Ashlyn Sibley APRN.RECORDS MANAGEMENT CLERK Work Phone: [facility] 01-20-2024 08:59-0400 Body temperature 97.81 [degF] Ashlyn Sibley APRN.RECORDS MANAGEMENT CLERK Work Phone: [facility] 01-20-2024 08:59-0400 Body weight 84.7 kg Chair [place] Work Phone: [facility] 01-20-2024 08:59-0400 Diastolic blood pressure 50 mm[Hg] Ashlyn Sibley [employer] MANAGEMENT CLERK Work Phone: [facility] 01-20-2024 08:59-0400 Heart rate 69 /min Ashlyn Sibley [employer] MANAGEMENT CLERK Work Phone: [facility] 01-20-2024 08:59-0400 Respiratory rate 16 /min Ashlyn Sibley [employer]ORDS MANAGEMENT CLERK Work Phone: [facility] 01-20-2024 08:59-0400 SaO2% (BldA) [Mass fraction] 98 % Ashlyn Sibley [employer]ORDS MANAGEMENT CLERK Work Phone: [facility] 01-20-2024 08:59-0400 Systolic blood pressure 100 mm[Hg] Ashlyn Sibley [employer]RECORDS MANAGEMENT CLERK Work Phone: [facility] 01-03-2024 11:19-0400 Body height 177.8 cm Eugene Chaparro MD Work Phone: [facility] 01-03-2024 11:19-0400 Body temperature 97.39 [degF] Eugene Chaparro MD Work Phone: [facility] 01-03-2024 11:19-0400 Body weight 83.8 kg Eugene Chaparro MD Work Phone: [facility] 01-03-2024 11:19-0400 Diastolic blood pressure 67 mm[Hg] Eugene Chaparro MD Work Phone: [facility] 01-03-2024 11:19-0400 Heart rate 56 /min Eugene Chaparro MD Work Phone: [facility] 01-03-2024 11:19-0400 Respiratory rate 16 /min Eugene Chaparro MD Work Phone: [facility] 01-03-2024 11:19-0400 SaO2% (BldA) [Mass fraction] 99 % Eugene Chaparro MD Work Phone: [facility] 01-03-2024 11:19-0400 Systolic blood pressure 132 mm[Hg] Eugene Chaparro MD Work Phone: [facility] 12-31-2023 09:02-0400 Body temperature 97.39 [degF] DARNELL Grajeda MD Work Phone: [facility] 12-31-2023 09:02-0400 Body weight 84.82 kg DARNELL Grajeda MD Work Phone: [facility] 12-31-2023 09:02-0400 Diastolic blood pressure 80 mm[Hg] DARNELL Grajeda MD Work Phone: [facility] 12-31-2023 09:02-0400 Heart rate 57 /min DARNELL Grajeda MD Work Phone: [facility] 12-31-2023 09:02-0400 Respiratory rate 16 /min DARNELL Grajeda MD Work Phone: [facility] 12-31-2023 09:02-0400 SaO2% (BldA) [Mass fraction] 100 % DARNELL Grajeda MD Work Phone: [facility] 12-31-2023 09:02-0400 Systolic blood pressure 134 mm[Hg] DARNELL Grajeda MD Work Phone: [facility] 12-05-2023 14:30-0500 Diastolic blood pressure 78 mm[Hg] Kylie DIETRICH [facility] 12-05-2023 14:30-0500 Heart rate 80 /min Kylie DIETRICH [facility] 12-05-2023 14:30-0500 Respiratory rate 12 /min Kylie DIETRICH [facility] 12-05-2023 14:30-0500 SaO2% (BldA) [Mass fraction] 96 % Kylie DIETRICH [facility] 12-05-2023 14:30-0500 Systolic blood pressure 148 mm[Hg] Kyliezak DIETRICH [facility] 12-05-2023 13:21-0500 Heart rate 73 /min Kyliezak DIETRICH [facility] 12-05-2023 13:21-0500 SaO2% (BldA) [Mass fraction] 95 % Kyliezak DIETRICH [facility] 12-05-2023 13:21-0500 Diastolic blood pressure 80 mm[Hg] Kyliezak DIETRICH [facility] 12-05-2023 13:21-0500 Mean blood pressure 104 mm[Hg] Kyliezak DIETRICH [facility] 12-05-2023 13:21-0500 Systolic blood pressure 151 mm[Hg] Kyliezak DIETRICH [facility] 12-05-2023 13:15-0500 Body temperature 97.52 [degF] Kyliezak DIETRICH [facility] 12-05-2023 13:15-0500 Diastolic blood pressure 99 mm[Hg] Kyliezak DIETRICH [facility] 12-05-2023 13:15-0500 Heart rate 73 /min Kyliezak DIETRICH [facility] 12-05-2023 13:15-0500 Mean blood pressure 104 mm[Hg] Kyliezak DIETRICH [facility] 12-05-2023 13:15-0500 Respiratory rate 9 /min Kyliezak DIETRICH [facility] 12-05-2023 13:15-0500 SaO2% (BldA) [Mass fraction] 97 % Kyliezak DIETRICH [facility] 12-05-2023 13:15-0500 Systolic blood pressure 114 mm[Hg] Kyliezak DIETRICH [facility] 12-05-2023 13:00-0500 Mean blood pressure 84 mm[Hg] Kylie DIETRICH [facility] 12-05-2023 12:55-0500 Mean blood pressure 86 mm[Hg] Kylie DIETRICH [facility] 12-05-2023 12:47-0500 Body temperature 97.34 [degF] Kylie DIETRICH [facility] 12-05-2023 12:40-0500 Respiratory rate 10 /min Kylie DIETRICH [facility] 12-05-2023 12:35-0500 Respiratory rate 10 /min Kylie DIETRICH [facility] 12-05-2023 12:30-0500 Respiratory rate 10 /min Kylie DIETRICH [facility] 12-05-2023 10:26-0500 Mean blood pressure 96 mm[Hg] Kyliezak DIETRICH [facility] 12-05-2023 10:26-0500 Body temperature 97.88 [degF] Kyliezak DIETRICH [facility] 11-20-2023 09:11-0500 Body height 180.3 cm George Morgan DO Work Phone: [facility] 11-20-2023 09:11-0500 Body mass index (BMI) [Ratio] 25.94 kg/m2 George Morgan DO Work Phone: [facility] 11-20-2023 09:11-0500 Body weight 84.37 kg George Morgan DO Work Phone: [facility] 11-20-2023 09:11-0500 Diastolic blood pressure 60 mm[Hg] George Morgan DO Work Phone: [facility] 11-20-2023 09:11-0500 Heart rate 66 /min George Morgan DO Work Phone: [facility] 11-20-2023 09:11-0500 Systolic blood pressure 114 mm[Hg] George Morgan DO Work Phone: [facility] 11-07-2023 08:30-0500 Body height 180.34 cm Lesa Ball Other [facility] 11-07-2023 08:30-0500 Body mass index (BMI) [Ratio] 25.33 kg/m2 Lesa Ball Other [facility] [employer] Other 11-07-2023 08:30-0500 Body weight 82.37 kg Lesa Ball Other [facility] 11-07-2023 08:30-0500 Diastolic blood pressure 73 mm[Hg] Lesa Ball Other [facility] 11-07-2023 08:30-0500 Respiratory rate 12 /min Lesa Ball Other [facility] [employer] Other 11-07-2023 08:30-0500 Systolic blood pressure 113 mm[Hg] Lesa Ball Other [facility] 10-10-2023 16:00-0500 Body temperature 98.1 [degF] Josafat Sun MD Work Phone: [facility] 10-10-2023 16:00-0500 Diastolic blood pressure 76 mm[Hg] Josafat Sun MD Work Phone: [facility] 10-10-2023 16:00-0500 Heart rate 68 /min Josafat Sun MD Work Phone: [facility] 10-10-2023 16:00-0500 Respiratory rate 17 /min Josafat Sun MD Work Phone: [facility] 10-10-2023 16:00-0500 SaO2% (BldA) [Mass fraction] 99 % Josafat Sun MD Work Phone: [facility] 10-10-2023 16:00-0500 Systolic blood pressure 149 mm[Hg] Josafat Sun MD Work Phone: [facility] 10-09-2023 22:34-0500 Body height 177.8 cm Josafat Sun MD Work Phone: [facility] 10-07-2023 14:30-0500 Body height 180.34 cm Imad Asaad Other [employer] Other 10-07-2023 14:30-0500 Body mass index (BMI) [Ratio] 25.24 kg/m2 Imad Asaad Other [employer] Other 10-07-2023 14:30-0500 Body weight 82.1 kg Imad Asaad Other [employer] Other 10-07-2023 14:30-0500 Diastolic blood pressure 63 mm[Hg] Imad Asaad Other [employer] Other 10-07-2023 14:30-0500 Systolic blood pressure 139 mm[Hg] Imad Asaad Other [employer] Other 10-04-2023 08:45-0500 Body height 180.34 cm Lesa Ball Other [employer] Other 10-04-2023 08:45-0500 Body mass index (BMI) [Ratio] 25.35 kg/m2 Lesa Ball Other [employer] Other 10-04-2023 08:45-0500 Body weight 82.46 kg Lesa Ball Other [employer] Other 10-04-2023 08:45-0500 Diastolic blood pressure 65 mm[Hg] Lesa Ball Other [employer] Other 10-04-2023 08:45-0500 Respiratory rate 12 /min Lesa Ball Other [employer] Other 10-04-2023 08:45-0500 Systolic blood pressure 133 mm[Hg] Lesa Ball Other [employer] Other 09-04-2023 08:45-0500 Body height 180.34 cm Lesa Ball Other [employer] Other 09-04-2023 08:45-0500 Body mass index (BMI) [Ratio] 26.11 kg/m2 Lesa Ball Other [employer] Other 09-04-2023 08:45-0500 Body weight 84.91 kg Lesa Ball Other [employer] Other 09-04-2023 08:45-0500 Diastolic blood pressure 71 mm[Hg] Lesa Ball Other [employer] Other 09-04-2023 08:45-0500 Respiratory rate 12 /min Lesa Ball Other [employer] Other 09-04-2023 08:45-0500 Systolic blood pressure 116 mm[Hg] Lesa Ball Other [employer] Other 08-21-2023 09:30-0400 Body height 180.34 cm Lesa Ball Other [employer] Other 08-21-2023 09:30-0400 Body mass index (BMI) [Ratio] 25.46 kg/m2 Lesa Ball Other [employer] Other 08-21-2023 09:30-0400 Body weight 82.83 kg Lesa Ball Other [employer] Other 08-21-2023 09:30-0400 Diastolic blood pressure 61 mm[Hg] Lesa Ball Other [employer] Other 08-21-2023 09:30-0400 Respiratory rate 12 /min Lesa Ball Other [employer] Other 08-21-2023 09:30-0400 Systolic blood pressure 115 mm[Hg] Lesa Ball Other [employer] Other 08-02-2023 09:45-0400 Body height 180.34 cm Lesa Ball Other [employer] Other 08-02-2023 09:45-0400 Body mass index (BMI) [Ratio] 25.86 kg/m2 Lesa Ball Other [employer] Other 08-02-2023 09:45-0400 Body weight 84.1 kg Lesa Ball Other [employer] Other 08-02-2023 09:45-0400 Diastolic blood pressure 64 mm[Hg] Lesa Ball Other [employer] Other 08-02-2023 09:45-0400 Respiratory rate 12 /min Lesa Ball Other [employer] Other 08-02-2023 09:45-0400 SaO2% (BldA) [Mass fraction] 96 % Lesa Ball Other [employer] Other 08-02-2023 09:45-0400 Systolic blood pressure 119 mm[Hg] Lesa Ball Other [employer] Other 07-08-2023 08:30-0400 Body height 180.34 cm Lesa Ball Other [employer] Other 07-08-2023 08:30-0400 Body mass index (BMI) [Ratio] 26.02 kg/m2 Lesa Ball Other [employer] Other 07-08-2023 08:30-0400 Body weight 84.64 kg Lesa Ball Other [employer] Other 07-08-2023 08:30-0400 Diastolic blood pressure 78 mm[Hg] Lesa Ball Other [employer] Other 07-08-2023 08:30-0400 Respiratory rate 12 /min Lesa Ball Other [employer] Other 07-08-2023 08:30-0400 Systolic blood pressure 135 mm[Hg] Lesa Ball Other [employer] Other 06-07-2023 14:15-0400 Body height 180.34 cm Lesa Ball Other [employer] Other 06-07-2023 14:15-0400 Body mass index (BMI) [Ratio] 26.72 kg/m2 Lesa Ball Other [employer] Other 06-07-2023 14:15-0400 Body weight 86.91 kg Lesa Ball Other [employer] Other 06-07-2023 14:15-0400 Diastolic blood pressure 71 mm[Hg] Lesa Ball Other [employer] Other 06-07-2023 14:15-0400 Respiratory rate 12 /min Lesa Ball Other [facility] [employer] Other 06-07-2023 14:15-0400 Systolic blood pressure 121 mm[Hg] Lesa Ball Other [facility] [employer] Other 05-02-2023 11:57-0400 Body height 177.8 cm Lesa E Ball Work Phone: [facility] [employer] DO Work Phone: 05-02-2023 11:57-0400 Body mass index (BMI) [Ratio] 26.54 kg/m2 Lesa E Ball Work Phone: [facility] [employer] DO Work Phone: 05-02-2023 11:57-0400 Body surface area Derived from formula 2.02 m2 Lesa E Ball Work Phone: [facility] [employer] 250 DO Work Phone: 05-02-2023 11:57-0400 Body weight 83.92 kg Lesa E Ball Work Phone: [facility] [employer] 250 DO Work Phone: 05-02-2023 11:57-0400 Diastolic blood pressure 60 mm[Hg] Lesa E Ball Work Phone: [facility] [employer] 250 DO Work Phone: 05-02-2023 11:57-0400 Heart rate 60 /min Lesa E Ball Work Phone: [facility] [employer] 250 DO Work Phone: 05-02-2023 11:57-0400 Systolic blood pressure 112 mm[Hg] Lesa E Ball Work Phone: [facility] [employer] 250 DO Work Phone: 04-23-2023 08:53-0400 Body temperature 97.8 [degF] DO Lesa Ball Work Phone: [facility] 04-23-2023 08:53-0400 Diastolic blood pressure 53 mm[Hg] DO Lesa Ball Work Phone: [facility] 04-23-2023 08:53-0400 Heart rate 70 /min DO Lesa Ball Work Phone: [facility] 04-23-2023 08:53-0400 Respiratory rate 16 /min DO Lesa Ball Work Phone: [facility] 04-23-2023 08:53-0400 SaO2% (BldA) [Mass fraction] 97 % DO Lesa Ball Work Phone: [facility] 04-23-2023 08:53-0400 Systolic blood pressure 91 mm[Hg] DO Lesa Ball Work Phone: [facility] 04-23-2023 04:43-0400 Body weight 83.1 kg DO Lesa Ball Work Phone: [facility] 04-22-2023 10:44-0400 Body height 177.8 cm DO Lesa Ball Work Phone: [facility] 04-12-2023 13:15-0400 Body height 180.34 cm Lesa Ball Other [employer] Other 04-12-2023 13:15-0400 Body mass index (BMI) [Ratio] 26.41 kg/m2 Lesa Ball Other [employer] Other 04-12-2023 13:15-0400 Body weight 85.91 kg Lesa Ball Other [employer] Other 04-12-2023 13:15-0400 Diastolic blood pressure 72 mm[Hg] Lesa Ball Other [employer] Other 04-12-2023 13:15-0400 Respiratory rate 12 /min Lesa Ball Other [employer] Other 04-12-2023 13:15-0400 Systolic blood pressure 121 mm[Hg] Lesa Ball Other [employer] Other 02-06-2023 12:30-0400 Body height 180.34 cm Lesa Ball Other [employer] Other 02-06-2023 12:30-0400 Body mass index (BMI) [Ratio] 26.39 kg/m2 Lesa Ball Other [employer] Other 02-06-2023 12:30-0400 Body weight 85.82 kg Lesa Ball Other [employer] Other 02-06-2023 12:30-0400 Diastolic blood pressure 80 mm[Hg] Lesa Ball Other [employer] Other 02-06-2023 12:30-0400 Respiratory rate 12 /min Lesa Ball Other [employer] Other 02-06-2023 12:30-0400 Systolic blood pressure 132 mm[Hg] Lesa Ball Other [employer] Other 01-14-2023 15:51-0400 Body height 177.8 cm Avel Heath MD Work Phone: [facility] 01-14-2023 15:51-0400 Body temperature 97.5 [degF] Avel Heath MD Work Phone: [facility] 01-14-2023 15:51-0400 Body weight 83.46 kg Avel Heath MD Work Phone: [facility] 01-14-2023 15:51-0400 Diastolic blood pressure 79 mm[Hg] Avel Heath MD Work Phone: [facility] 01-14-2023 15:51-0400 Heart rate 65 /min Avel Heath MD Work Phone: [facility] 01-14-2023 15:51-0400 SaO2% (BldA) [Mass fraction] 97 % Avel Heath MD Work Phone: [facility] 01-14-2023 15:51-0400 Systolic blood pressure 165 mm[Hg] Avel Heath MD Work Phone: [facility] 12-31-2022 11:30-0400 Body height 180.34 cm Lesa [employer] Other [employer] Other 12-31-2022 11:30-0400 Body mass index (BMI) [Ratio] 26.27 kg/m2 Lesa [employer] Other [employer] Other 12-31-2022 11:30-0400 Body weight 85.46 kg Lesa Ball Other [employer] Other 12-31-2022 11:30-0400 Diastolic blood pressure 70 mm[Hg] Lesa Ball Other [employer] Other 12-31-2022 11:30-0400 Respiratory rate 12 /min Lesa Ball Other [employer] Other 12-31-2022 11:30-0400 Systolic blood pressure 137 mm[Hg] Lesa [employer] Other [employer] Other Encounters Encounter Date Encounter Type Care Provider Facility Start: 05-19-2025 End: 05-19-2025 Office outpatient visit 15 minutes Suzanne Grajeda MD Work Phone: [facility] Comment on above: 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) Start: 05-19-2025 End: 05-19-2025 Office outpatient visit 25 minutes Eugene Chaparro MD Work Phone: Hematology/Oncology Comment on above: Malignant neoplasm o f overlapping sites of bladder (HCC) (Primary Dx); Pulmonary nodule, left; Lung granuloma (HCC); Atherosclerosis of aorta; Personal history of malignant neoplasm of bladder; Acquired absence of organ, urinary bladder Start: 05-19-2025 End: 05-19-2025 ambulatory LESA ESTRELLA Facility[facility] Start: 05-14-2025 ambulatory LESA ESTRELLA Facilit y:[facility] Start: 05-14-2025 End: 05-14-2025 Subsequent hospital visit by physician Arrival Time Radiology Work Phone: [facility] Comment on above: Malignant neoplasm o f urinary bladder, unspecified site (HCC) [C67.9] Start: 04-02-2025 End: 04-02-2025 ambulatory MARISOL-C TRINA BARRAGAN [facility] Start: 04-02-2025 End: 04-02-2025 Patient encounter procedure TRINA BARRAGAN [facility] Start: 03-31-2025 End: 03-31-2025 Office outpatient visit 15 minutes Theodora Cortez Love [employer] MANAGEMENT CLERK Work Phone: [facility] Comment on above: BMI 26.0-26.9,adult (Primary Dx); Localized edema Start: 03-31-2025 End: 03-31-2025 ambulatory [facility] Start: 03-23-2025 End: 03-23-2025 ambulatory Lesa Estrella DO Work Phone: [facility] Work Phone: Start: 03-23-2025 End: 03-23-2025 Patient encounter procedure Lesa Estrella DO Work Phone: [facility] Work Phone: Start: 03-19-2025 End: 03-19-2025 ambulatory PA-C TRINA BARRAGAN Facility:[facility] Start: 03-19-2025 End: 03-19-2025 Patient encounter procedure TRINA Darvin LAUREL [facility] Start: 03-16-2025 End: 03-16-2025 Patient encounter procedure Lesa Estrella DO Work Phone: [facility] [place] Work Phone: Start: 03-16-2025 End: 03-16-2025 Office outpatient visit 15 minutes Theodora Love [employer] MANAGEMENT CLERK Work Phone: [facility] Comment on above: Mixed hyperlipidemia (Primary Dx); Atherosclerosis of [place] coronary artery, unspecified whether angina present, unspecified whether [place] or transplanted heart; Essential (primary) hypertension; BMI 27.0-27.9,adult; Localized edema Start: 03-16-2025 End: 03-16-2025 ambulatory Lesa Sameer DO Work Phone: [facility] Work Phone: Start: 01-29-2025 End: 01-29-2025 Telephone encounter Eugene Chaparro MD Work Phone: [facility] Comment on above: Results Start: 01-29-2025 End: 01-29-2025 Office outpatient visit 40 minutes Eugene Chaparro MD Work Phone: Hematology/Oncology Comment on above: Malignant neoplasm o f urinary bladder, unspecified site (HCC) (Primary Dx); Lung nodules; Stage 3a chronic kidney disease (HCC); Anemia, unspecified type; Malignant neoplasm of overlapping sites of bladder (HCC) Start: 01-29-2025 End: 01-29-2025 ambulatory EUGENE CHAPARRO Facility:[facility] Start: 01-29-2025 End: 01-29-2025 Subsequent hospital visit by physician Arrival Time Radiology Work Phone: [facility] Comment on above: Malignant neoplasm o f urinary bladder, unspecified site (HCC) [C67.9] Start: 01-18-2025 End: 01-18-2025 ambulatory LESA ESTRELLA Facility:[facility] Start: 01-18-2025 Non-patient / Non-visit Benjam in Sameer DO [facility] Work Phone: Start: 01-08-2025 End: 01-08-2025 ambulatory Kylie Dietrich MD Work Phone: [facility] Work Phone: Start: 01-08-2025 End: 01-08-2025 Patient encounter procedure Kylie Dietrich MD [facility] Work Phone: Start: 12-08-2024 End: 12-08-2024 ambulatory Kylie Dietrich MD Work Phone: [facility] Work Phone: Start: 12-08-2024 End: 12-08-2024 Patient encounter procedure Kylie Dietrich MD Work Phone: Critical Access Hospital Physician [facility] Work Phone: Start: 11-27-2024 End: 11-27-2024 ambulatory Kylie DIETRICH Facility:[facility] [place] Start: 11-27-2024 End: 11-27-2024 Patient encounter procedure Kylie DIETRICH [facility] [place] Start: 11-23-2024 End: 11-23-2024 ambulatory Kylie Dietrich [facility] Work Phone: Start: 11-23-2024 End: 11-23-2024 Departed Referred Kylie Dietrich MD Work Phone: [facility] [place] [facility] Start: 11-23-2024 End: 11-23-2024 ambulatory Kylie DIETRICH Facility:[id number] Start: 11-16-2024 ambulatory Kylie DIETRICH Facili ty:[facility] [place] Start: 10-30-2024 End: 10-30-2024 Telephone encounter Sherron Sessler RN Work Phone: Hematology/Oncology Comment on above: Care Coordination (U rology Question) Start: 10-28-2024 End: 10-28-2024 Office outpatient visit 25 minutes Eugene Chaparro MD Work Phone: Hematology/Oncology Comment on above: Malignant neoplasm o f urinary bladder, unspecified site (HCC) (Primary Dx); Lung nodules; Stage 3a chronic kidney disease (HCC) Start: 10-28-2024 End: 10-28-2024 Office outpatient visit 15 minutes Suzanne Grajeda MD Work Phone: Radiation Oncology Comment on above: 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) Start: 10-28-2024 End: 10-28-2024 ambulatory [facility] Start: 10-20-2024 End: 10-20-2024 ambulatory LESA ESTRELLA [facility] Start: 10-20-2024 End: 10-20-2024 Subsequent hospital visit by physician Arrival Time Radiology Work Phone: Radiology Pet CT Comment on above: Malignant neoplasm o f urinary bladder, unspecified site (HCC) [C67.9] Start: 10-05-2024 End: 10-05-2024 Telephone encounter Sherron Singh RN Work Phone: Hematology/Oncology Comment on above: Care Coordination (C T Results) Start: 09-30-2024 End: 09-30-2024 ambulatory [facility] Start: 09-30-2024 Non-patient / Non-visit Rick Dietrich MD Work Phone: [facility] Work Phone: Start: 09-21-2024 End: 09-21-2024 Patient encounter procedure Kylie Dietrich MD Work Phone: Critical Access Hospital Physician [facility] Work Phone: Start: 09-17-2024 Patient encounter procedure Kylie Dietrich MD Work Phone: [facility] Start: 09-15-2024 Non-patient / Non-visit Rick Dietrich MD Work Phone: Critical Access Hospital Physician [facility] Work Phone: Start: 08-24-2024 End: 08-24-2024 ambulatory Lesa Estrella Facility:[facility] Start: 07-21-2024 End: 07-21-2024 ambulatory [facility] Work Phone: Start: 07-21-2024 End: 07-21-2024 Patient encounter procedure [facility] Work Phone: Start: 07-16-2024 End: 07-16-2024 ambulatory Niki Dumont Facility:[facility] Start: 07-16-2024 End: 07-16-2024 Patient encounter procedure Niki Dumont 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) Start: 07-01-2024 End: 07-01-2024 ambulatory Suzanne GRAJEDA [facility] Start: 07-01-2024 End: 07-01-2024 Office outpatient visit 25 minutes Eugene Chaparro MD Work Phone: Hematology/Oncology Comment on above: 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 Start: 06-29-2024 End: 06-29-2024 ambulatory Kylie R DIETRICH Facility:[id number] Start: 06-23-2024 End: 06-23-2024 Lab Drop off Kylie Lauro WILY [facility] Start: 06-23-2024 End: 06-23-2024 ambulatory Kylie Lauro WILY [facility] Start: 06-23-2024 End: 06-23-2024 Patient encounter procedure [facility]ylie R WILY [facility] Start: 06-11-2024 Non-patient / Non-visit Critical [facility] Physician [facility] Work Phone: Start: 06-08-2024 End: 06-08-2024 ambulatory [facility] Work Phone: Start: 06-08-2024 End: 06-08-2024 Patient encounter procedure [facility] Physician [facility] Work Phone: Start: 05-25-2024 Non-patient / Non-visit [facility] Physician [facility] Work Phone: Start: 05-20-2024 End: 05-20-2024 ambulatory [facility] Start: 04-20-2024 End: 04-20-2024 ambulatory Kylie Lauro WILY Facility:[facility] [place] Start: 04-20-2024 End: 04-20-2024 Patient encounter procedure Kylie Lauro WILY 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 Work Phone: Start: 03-19-2024 End: 03-19-2024 Patient encounter procedure [facility] Work Phone: Start: 03-10-2024 Patient encounter procedure [facility] Provider [facility] Department Start: 03-04-2024 End: 03-04-2024 Lab Drop off Sridevi X Orzech [facility] Start: 03-04-2024 End: 03-04-2024 Patient encounter procedure Sridevi X Orzech 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) Start: 02-26-2024 Non-patient / Non-visit [facility] Work Phone: Start: 02-24-2024 End: 02-24-2024 Social Work Jana Pierre [facility] Hematology/Oncology Comment on above: Care Coordination (U rine Culture Results) 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) Start: 02-23-2024 Orders Only Eugene restrepo MD Work Phone: Hematology/Oncology Start: 02-21-2024 Telephone encounter Eugene haley MD Work Phone: Radiation Oncology Comment on above: Edema; Dysuria; Diar jose Start: 02-21-2024 End: 02-21-2024 Patient encounter procedure Lab/Port Cherelle Hart Work Phone: Radiation Oncology Comment on above: 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) Start: 02-19-2024 Telephone encounter Radha Torres RN Hematology/Oncology Comment on above: Patient Question Start: 02-19-2024 End: 02-19-2024 Nursing evaluation of patient and report Sudarshan Rosenberg Work Phone: Hematology/Oncology Comment on above: Dysuria (Primary Dx) Start: 02-19-2024 Non-patient / Non-visit [facility] Work Phone: Start: 02-19-2024 End: 02-19-2024 ambulatory Chair Erin Hart Work Phone: Hematology/Oncology Comment on above: 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) Start: 02-12-2024 [facility]-patient / [facility] Work Phone: Start: 02-12-2024 End: 02-12-2024 ambulatory Chair Jennifer Hart Work Phone: Hematology/Oncology Comment on above: 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) Start: 02-10-2024 End: 02-10-2024 Patient encounter procedure Suzanne Grajeda MD Work Phone: Radiation Oncology Comment on above: 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) Start: 02-07-2024 Telephone encounter Eugene haley MD Work Phone: Hematology/Oncology Comment on above: Orders Start: 02-06-2024 End: 02-06-2024 ambulatory Chair 4 Shila Work Phone: Hematology/Oncology Comment on above: 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) Start: 02-06-2024 Non-patient / Non-visit [facility] Work Phone: Start: 02-05-2024 End: 02-05-2024 ambulatory Chair 8 Shila Work Phone: Hematology/Oncology Comment on above: 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) Start: 02-05-2024 End: 02-05-2024 Patient encounter procedure Ashlyn Sibley APRN.CNP Work Phone: SHILA Start: 02-04-2024 Non-patient / Non-visit [facility] Work Phone: Start: 02-04-2024 End: 02-04-2024 Patient encounter procedure Lab/Port Radt Shila Work Phone: Radiation Oncology Comment on above: 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) Start: 01-28-2024 End: 01-28-2024 Office outpatient visit 25 minutes Jasmine Saunders PA-C Work Phone: Hematology/Oncology Comment on above: 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) Start: 01-28-2024 Non-patient / Non-visit [facility] Work Phone: Start: 01-24-2024 Telephone encounter Sherron sepulveda RN Work Phone: Hematology/Oncology Comment on above: Care Coordination (C 1D1 Post Treatment Call) Start: 01-20-2024 Telephone encounter Financial Navigator Maninder Work Phone: Hematology/Oncology Comment on above: Benefits Investigati on Start: 01-20-2024 End: 01-20-2024 ambulatory Chair 9 Shila Work Phone: Hematology/Oncology Comment on above: 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) Start: 01-20-2024 End: 01-20-2024 Patient encounter procedure Suzanne Grajeda MD Work Phone: Radiation Oncology Comment on above: 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) Start: 01-20-2024 Non-patient / Non-visit [facility] Work Phone: Start: 01-13-2024 Telephone encounter Sherron sepulveda RN Work Phone: Hematology/Oncology Comment on above: Care Coordination (A ntiemetics) Start: 01-09-2024 Telephone encounter G Leigh Engeler MD Work Phone: Radiation Oncology Comment on above: Future Appointment Start: 01-08-2024 End: 01-08-2024 Patient encounter procedure [facility] Provider [facility] Department Comment on above: 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) Start: 01-08-2024 Radiation Oncology Note Suzanne Grajeda MD Work Phone: Radiation Oncology Comment on above: Simulation Note Start: 01-08-2024 End: 01-08-2024 Subsequent hospital visit by physician Suzanne Grajeda MD Work Phone: Radiology Pet CT Comment on above: 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) [C67.0] Start: 01-03-2024 Non-patient / Non-visit [facility] Physician [facility] Work Phone: Start: 01-03-2024 End: 01-03-2024 Office outpatient new 60 minutes Eugene Chaparro MD Work Phone: Hematology/Oncology Comment on above: 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) Start: 12-31-2023 ambulatory Epi Razo LPN Radia tion Oncology Comment on above: Patient Education Start: 12-31-2023 End: 12-31-2023 Patient encounter procedure Suzanne Grajeda MD Work Phone: Radiation Oncology Comment on above: 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) Start: 12-17-2023 Non-patient / Non-visit [facility] Physician [facility] Work Phone: Start: 12-14-2023 Non-patient / Non-visit Critical Access Hospital Physician [facility] Work Phone: Start: 12-05-2023 End: 12-05-2023 Admission to same day surgery center Kylie DIETRICH [facility] Start: 11-22-2023 End: 11-22-2023 ambulatory Lesa Estrella Other [employer] Other Start: 11-22-2023 Telephone encounter Lesa Estrella G [facility] Start: 11-20-2023 End: 11-20-2023 Office outpatient visit 15 minutes George Morgan DO Work Phone: [facility] Comment on above: Atherosclerosis of n ative coronary artery, unspecified whether angina present, unspecified whether pamunkey or transplanted heart; Stented coronary artery; Non-ST elevation myocardial infarction (NSTEMI) ([facility]); Hyperlipidemia, unspecified hyperlipidemia type; History of colon cancer; Never smoked any substance; Malignant neoplasm of urinary bladder, unspecified site ([facility]) Start: 11-07-2023 End: 11-07-2023 ambulatory Lesa Estrella Other [employer] Other Start: 11-07-2023 Office outpatient vi sit 15 minutes Lesa Estrella [facility] Start: 11-07-2023 End: 11-07-2023 Patient encounter procedure [facility]- Start: 10-28-2023 End: 10-28-2023 ambulatory Imad Asaad Other [employer] Other Start: 10-28-2023 Telephone encounter Imad Asaad [facility] Start: 10-23-2023 End: 10-23-2023 ambulatory DO Lesa Estrella Work Phone: [facility] Work Phone: Start: 10-23-2023 End: 10-23-2023 Patient encounter procedure DO Lesa Estrella Work Phone: [facility]-CT Scan [facility] [place] Work Phone: Start: 10-10-2023 End: 10-10-2023 Emergency department patient visit Josafat Sun MD Work Phone: [facility] Start: 10-07-2023 End: 10-07-2023 ambulatory Imad Asaad Other [employer] Other Start: 10-07-2023 Office outpatient ne w 45 minutes Imad Asaad [facility] Start: 10-04-2023 End: 10-04-2023 ambulatory Lesa Ball Other [employer] Other Start: 10-04-2023 Office outpatient vi sit 15 minutes Lesa Ball [facility] Start: 09-04-2023 End: 09-04-2023 ambulatory Lesa Ball Other [employer] Other Start: 09-04-2023 Office outpatient vi sit 15 minutes Lesa Ball [facility] Start: 09-04-2023 Telephone encounter Lesa Ball FP [facility] Start: 08-21-2023 End: 08-21-2023 ambulatory Lesa Ball Other [employer] Other Start: 08-21-2023 Office outpatient vi sit 15 minutes Lesa Ball [facility] Start: 08-21-2023 Telephone encounter Lesa Ball FP [facility] Start: 08-09-2023 End: 08-09-2023 ambulatory Lesa Ball Other [employer] Other Start: 08-09-2023 Telephone encounter Lesa Ball FP [facility] Start: 08-06-2023 End: 08-06-2023 ambulatory Lesa Ball Other [employer] Other Start: 08-06-2023 Telephone encounter Lesa Ball FP [facility] Start: 08-02-2023 End: 08-02-2023 ambulatory Lesa Ball Other [employer] Other Start: 08-02-2023 Office outpatient vi sit 15 minutes Lesa Ball [facility] Start: 07-31-2023 End: 07-31-2023 ambulatory Lesa Ball Other [employer] Other Start: 07-31-2023 Telephone encounter Lesa Ball FP [facility] Start: 07-10-2023 End: 07-10-2023 ambulatory Lesa Estrella Other [facility] [employer] Other Start: 07-10-2023 Telephone encounter Lesa Estrella FP [facility] Start: 07-08-2023 Chart Update Lesa soriano Work Phone: [facility] 250 DO Work Phone: Start: 07-08-2023 End: 07-08-2023 ambulatory Lesa Estrella Other [facility] [employer] Other Start: 07-08-2023 Patient encounter procedure Lesa Estrella [facility] Start: 07-08-2023 Telephone encounter Lesa Sameer FRANCISCO [facility] Start: 06-25-[address] George Thapa [facility] Facility:[id number] Start: 06-07-2023 End: 06-07-2023 ambulatory Lesa Estrella Other [facility] [employer] Other Start: 06-07-2023 Office outpatient vi sit 15 minutes Lesa Estrella [facility] Start: 05-16-2023 Rx Renewal Lesa soriano Work Phone: [facility] 250 DO Work Phone: Start: 05-09-2023 End: 05-09-2023 ambulatory Lesa Estrella Other [facility] [employer] Other Start: 05-09-2023 Telephone encounter Lesa Sameer FP [facility] Start: 05-02-2023 Telephone encounter Lesa Sameer SINGH [facility] Start: 05-02-2023 Office outpatient vi sit 15 minutes Lesa Darvin Sameer Work Phone: [facility] 250 DO Work Phone: Start: 05-02-2023 End: 05-02-[address] Lesa Estrella [facility] [employer] Other Start: 04-22-2023 Telephone encounter Lesa Estrella FRANCISCO [facility] Start: 04-22-2023 End: 04-23-2023 Evaluation and management of inpatient DO Lesa Estrella Work Phone: [facility] [place] [facility] Work Phone: Start: 04-22-2023 End: 04-22-[address] George Morgan [facility] [employer] Other Start: 04-12-2023 End: 04-12-2023 ambulatory Lesa Estrella Other [employer] Other Start: 04-12-2023 Office outpatient vi sit 15 minutes Lesa Ball [facility] Start: 04-08-2023 End: 04-08-2023 Patient encounter procedure Kylie DIETRICH [facility] Start: 03-19-2023 End: 03-19-2023 ambulatory Lesa Estrella Other [employer] Other Start: 03-19-2023 Telephone encounter Lesa Ball FP [facility] Start: 02-06-2023 End: 02-06-2023 ambulatory Lesa Sameer Other [employer] Other Start: 02-06-2023 Office outpatient vi sit 15 minutes Lesa Ball [facility] Start: 02-06-2023 Telephone encounter Lesa Ball FP [facility] Start: 01-31-2023 End: 01-31-2023 ambulatory Lesa Sameer Other [employer] Other Start: 01-31-2023 Telephone encounter Lesa Ball FP [facility] Start: 01-18-2023 End: 01-19-2023 ambulatory TASHA CHILDERS . Facility: Start: 01-14-2023 End: 01-14-2023 Patient encounter procedure Aevl Heath MD Work Phone: Colorectal Surgery Comment on above: Irregular bowel habi ts (Primary Dx) Start: 01-07-2023 Telephone encounter Lesa Ball FP [facility] Start: 01-07-2023 End: 01-07-[address] KYLIE DIETRICH . [facility] [employer] Other Start: 12-31-2022 End: 12-31-2022 ambulatory Lesa Estrella Other [place] [employer] Other Start: 12-31-2022 Office outpatient vi sit 25 minutes Lesa Estrella [facility] Start: 12-27-2022 Telephone encounter Lesa Estrella [facility] Start: 12-27-2022 End: 12-28-[address] LESA ESTRELLA [facility] [employer] Other Start: 12-25-2022 End: 12-25-2022 ambulatory Reid Ann Other [place] [employer] Other Start: 12-25-2022 Telephone encounter Reid Ann [facility] Start: 12-20-[address] KYLIE DIETRICH . Fac ility:[facility] Start: 12-12-[address] KYLIE DIETRICH . Fac ility:[facility] Start: 11-12-2022 End: 11-12-[address] KYLIE DIETRICH . Facility:[facility] Start: 11-04-2022 Evaluation and management of inpatient JIMMY ESTRELLA Facility:[facility] Start: 11-04-2022 End: 11-04-2022 Evaluation and management of inpatient [facility] Outside Imaging Ct Scan So Outside Imaging Second Opinion Start: 11-03-2022 End: 11-05-2022 Evaluation and management of inpatient LUKE LAN Facility:[facility] Start: 11-03-2022 End: 11-03-[address] HANG OHRAA Facility:[facility] Start: 11-02-2022 End: 11-02-2022 Patient encounter procedure Kylie DIETRICH [facility] Start: 10-04-2022 End: 10-04-[address] KYLIE DIETRICH . Facility:[facility] Start: 09-28-2022 End: 09-29-[address] LESA ESTRELLA Facility:[facility] Start: 09-28-2022 End: 09-28-2022 Patient encounter procedure Kylie DIETRICH [facility] Start: 09-19-2022 End: 09-19-2022 Patient encounter procedure Marina DinoraWesley Hooper [facility] Start: 08-23-2022 End: 08-23-[address] KYLIE DIETRICH . Facility:[facility] Start: 08-08-2022 End: 08-08-2022 Patient encounter procedure TRINA [place] LAUREL [facility] Start: 07-02-2022 End: 07-03-[address] LESA ESTRELLA Facility:[facility] Start: 06-11-2022 End: 06-11-[address] KYLIE DIETRICH . Facility:[facility] Start: 06-04-2022 End: 06-04-2022 Patient encounter procedure Kylie DIETRICH [facility] Start: 04-30-2022 End: 04-30-[address] KYLIE DIETRICH . Facility:[facility] Start: 04-25-2022 End: 04-25-2022 Patient encounter procedure Marina Hooper [facility] Start: 04-09-2022 End: 04-09-[address] LESA ESTRELLA Facility:[facility] Start: 04-06-2022 End: 04-06-2022 ambulatory DR LESA ESTRELLA Facility:[facility] Start: 04-02-2022 End: 04-02-[address] KYLIE DIETRICH . Facility:[facility] Start: 03-30-2022 End: 03-30-2022 Patient encounter procedure Kylie DIETRICH [facility] Start: 03-28-2022 End: 03-29-[address] LEAS ESTRELLA Facility:[facility] Start: 03-05-2022 End: 03-05-[address] KYLIE DIETRICH . Facility:[facility] Start: 03-02-2022 End: 03-02-2022 Patient encounter procedure Kylie DIETRICH [facility] Start: 02-07-2022 End: 02-08-[address] LESA ESTRELLA Facility:[facility] Start: 01-08-2022 End: 01-08-2022 Patient encounter procedure Kylie DIETRICH [facility] Start: 05-09-2017 [address] [facility] Start: 05-06-2017 End: 05-10-2017 Ambulatory GEORGE MCNEILL [facility] Ambulato ry Procedures Date Procedure Procedure Detail Performing Clinician Start: 05-14-2025 Ct abdomen & pelvis w/contrast material Eugene Chaparro MD Work Phone: Start: 05-14-2025 Ct thorax w/contrast material Eugene Chaparro MD Work Phone: Start: 05-14-2025 Blood count complete auto&auto difrntl wbc Eugene Chaparro MD Work Phone: Start: 03-16-2025 Duplex scan of lower limb veins Lesa Estrella DO Work Phone: Start: 01-29-2025 Ct abdomen & pelvis w/contrast material Eugene Chaparro MD Work Phone: Start: 01-29-2025 Ct thorax w/contrast material Eugene Chaparro MD Work Phone: Start: 10-20-2024 Gluc bld gluc mntr d ev cleared fda spec home use [facility] Provider Start: 03-02-2024 Radiation therapy care Kylie DIETRICH Start: 02-19-2024 Urine culture Start: 02-19-2024 Basic metabolic pane l calcium total Eugene Chaparro MD Work Phone: Start: 02-04-2024 Blood count complete auto&auto difrntl wbc Jasmine Farias Nicky ESCOBEDO Work Phone: Start: 01-28-2024 End: 01-28-2024 Comprehensive metabolic panel Jasmine M Nicky ESCOBEDO Work Phone: Start: 01-08-2024 Ct thorax w/o contra st material G Leigh Grajeda MD Work Phone: Start: 12-14-2023 Bacteria identified in Urine by Culture Start: 12-05-2023 Transurethral resect ion of bladder neoplasm Kylie DIETRICH Start: 10-23-2023 CT of small intestine D O Lesa Estrella Work Phone: Start: 10-10-2023 Assay of lactate Sam samuel Garcia MD Work Phone: Start: 10-09-2023 Assay of lipase Piyushami amy Read MD Work Phone: Start: 10-09-2023 CBC AND ELECTRONIC DIFF Lesa Read MD Work Phone: Start: 10-09-2023 Complete blood count with white cell differential, automated Lesa Read MD Work Phone: Start: 10-09-2023 Hepatic function panel Lesa Read MD Work Phone: Start: 10-09-2023 LT BLUE TOP TUBE Damon Read MD Work Phone: Start: 10-09-2023 MINT GREEN TOP TUBE Eleuterio Read MD Work Phone: Start: 06-25-2023 Echocardiography Benjam in E Ball Work Phone: Start: 04-22-2023 CL LHC & COR Angio DO B enjamin Ball Work Phone: Start: 04-22-2023 CL Stent 1st Vessel CX CASSIDY DO Lesa Estrella Work Phone: Start: 11-04-2022 Ct abdomen & pelvis w/contrast material Nandini Patton MD Work Phone: Start: 12-13-2020 Cystoscopy and laser destruction of bladder lesion Kylie DIETRICH Start: 05-26-2020 Transurethral resect ion of bladder neoplasm Kylie DIETRICH Start: 10-21-2001 Hydrocelectomy Kylie DIETRICH Cardiac catheterization Piyush Estrella Work Phone: Cardiac catheterization Patr afsaneh WILY Cataract (disorder) Kylie DIETRICH Comment on above: left colon resection Kylie PHAM Colonoscopy Kylie DIETRICH Colonoscopy Lesa Estrella Work Phone: History of placement of stent for coronary artery disease Status post insertion of drug eluting coronary artery stent Lesa Estrella Work Phone: Insertion of arterial stent Lesa Estrella Work Phone: Operation on gallbladder Eleuterio Estrella Work Phone: Comment on above: tumor removal; Partial resection of colon B enalida Estrella Work Phone: Plan of Treatment Date Care Activity Detail Author Start: 01-18-2033 DTaP/Tdap/Td Vaccines (2 - Td or Tdap) DTaP/Tdap/Td Vaccines (2 - Td or Tdap) [facility] Start: 01-18-2033 Tetanus vaccination TETANUS [facility] Start: 01-18-2033 Urine microalbumin profile DTaP,Tdap,Td Vaccine (3 - Td or Tdap) [facility] Start: 05-14-2028 Diabetes Screening Diabetes Screening [facility] Start: 01-19-2028 Diabetes Screening Diabetes Screening [facility] Start: 09-30-2027 Diabetes Screening Diabetes Screening [facility] Start: 07-01-2027 Diabetes Screening Diabetes Screening [facility] Start: 03-25-2027 Diabetes Screening Diabetes Screening [facility] Start: 02-25-2027 Diabetes Screening Diabetes Screening [facility] Start: 02-18-2027 Diabetes Screening Diabetes Screening [facility] Start: 02-11-2027 Diabetes Screening Diabetes Screening [facility] Start: 02-05-2027 Diabetes Screening Diabetes Screening [facility] Start: 02-03-2027 Diabetes Screening Diabetes Screening [facility] Start: 01-27-2027 Diabetes Screening Diabetes Screening [facility] Start: 01-19-2027 Diabetes Screening Diabetes Screening [facility] Start: 01-02-2027 Diabetes Screening Diabetes Screening [facility] Start: 11-29-2025 End: 11-29-2025 Follow-up encounter 11/29/2025 10:00 AM EST Visit (SP) Office Hematology/Oncology [address] [place] [address] Eugene Chaparro MD [address] [place] [address] and lab results Hematology/Oncology Comment on above: [address] and lab results Start: 11-22-2025 End: 11-22-2025 Patient encounter procedure 11/22/2025 9:45 AM EST Appointment Radiology Pet CT [address] [place] [address] Ct CAP with contrast and lab Radiology Pet CT Comment on above: Ct CAP with contrast and lab Start: 11-19-2025 End: 05-19-2026 CBC W Auto Differential panel - Blood COMPLETE BLOOD COUNT AND DIFFERENTIAL Lab Routine Malignant neoplasm of overlapping sites of bladder (HCC) Expected: 11/19/2025 (Approximate), Expires: 05/19/2026 [facility] Comment on above: Expected: 11/19/2025 (Approximate), Expi res: 05/19/2026 Start: 11-19-2025 End: 05-19-2026 Comprehensive metabolic 2000 panel - Serum or Plasma COMPREHENSIVE METABOLIC PANEL Lab Routine Malignant neoplasm of overlapping sites of bladder (HCC) Expected: 11/19/2025 (Approximate), Expires: 05/19/2026 [facility] Comment on above: Expected: 11/19/2025 (Approximate), Expi res: 05/19/2026 Start: 11-19-2025 End: 06-18-2026 CT Abdomen and Pelvis W contrast IV CT ABD/PEL W IVCON Radiology Routine Malignant neoplasm of overlapping sites of bladder (HCC) Expected: 11/19/2025 (Approximate), Expires: 06/18/2026 [facility] Work Phone: Comment on above: Expected: 11/19/2025 (Approximate), Expi res: 06/18/2026 Start: 11-19-2025 End: 06-18-2026 CT Chest W contrast IV CT CHEST W IVCON Radiology Routine Malignant neoplasm of overlapping sites of bladder (HCC) Expected: 11/19/2025 (Approximate), Expires: 06/18/2026 [facility] Comment on above: Expected: 11/19/2025 (Approximate), Expi res: 06/18/2026 Start: 10-27-2025 End: 10-27-2025 Patient encounter procedure 10/27/2025 11:00 AM EST Office Visit [facility] [address] [facility] [address] [place] [address] George Morgan, [address] [facility] [address] [place] [address] [facility] Start: 06-21-2025 Influenza vaccination Influenza Vaccine (#1) [facility] Start: 06-14-2025 ambulatory Ambulatory Facility:[facility] Start: 05-19-2025 End: 05-19-2025 Patient encounter procedure 05/19/2025 9:30 AM EDT Office Visit Radiation Oncology [address] [place] [address] Suzanne Grajeda MD [address] [place] [address] follow up Radiation Oncology Comment on above: follow up Start: 05-19-2025 End: 05-19-2025 Follow-up encounter 05/19/2025 9:00 AM EDT Visit (SP) Office Hematology/Oncology [address] [place] [address] Eugene Chaparro MD [address] [place] [address] 3 month follow up for lab and ct review Hematology/Oncology Comment on above: 3 month follow up for lab and ct review Start: 05-14-2025 End: 05-14-2025 Patient encounter procedure 05/14/2025 7:15 AM EDT Appointment Radiology Pet CT [address] [place] [address] Ct CAP with contrast and lab Radiology Pet CT Comment on above: Ct CAP with contrast and lab Start: 04-30-2025 End: 01-29-2026 CBC W Auto Differential panel - Blood COMPLETE BLOOD COUNT AND DIFFERENTIAL Lab Routine Malignant neoplasm of urinary bladder, unspecified site (HCC) Lung nodules Stage 3a chronic kidney disease (HCC) Anemia, unspecified type Malignant neoplasm of overlapping sites of bladder (HCC) Expected: 04/30/2025 (Approximate), Expires: 01/29/2026 [facility] Comment on above: Expected: 04/30/2025 (Approximate), Expi res: 01/29/2026 Start: 04-30-2025 End: 01-29-2026 Cobalamin (Vitamin B12) [Mass/volume] in Serum or Plasma VITAMIN B12 Lab Routine Malignant neoplasm of urinary bladder, unspecified site (HCC) Lung nodules Stage 3a chronic kidney disease (HCC) Anemia, unspecified type Malignant neoplasm of overlapping sites of bladder (HCC) Expected: 04/30/2025 (Approximate), Expires: 01/29/2026 [facility] Comment on above: Expected: 04/30/2025 (Approximate), Expi res: 01/29/2026 Start: 04-30-2025 End: 01-29-2026 Comprehensive metabolic 2000 panel - Serum or Plasma COMPREHENSIVE METABOLIC PANEL Lab Routine Malignant neoplasm of urinary bladder, unspecified site (HCC) Lung nodules Stage 3a chronic kidney disease (HCC) Anemia, unspecified type Malignant neoplasm of overlapping sites of bladder (HCC) Expected: 04/30/2025 (Approximate), Expires: 01/29/2026 [facility] Comment on above: Expected: 04/30/2025 (Approximate), Expi res: 01/29/2026 Start: 04-30-2025 End: 02-28-2026 CT Abdomen and Pelvis W contrast IV CT ABD/PEL W IVCON Radiology Routine Malignant neoplasm of urinary bladder, unspecified site (HCC) Lung nodules Stage 3a chronic kidney disease (HCC) Anemia, unspecified type Malignant neoplasm of overlapping sites of bladder (HCC) Expected: 04/30/2025 (Approximate), Expires: 02/28/2026 [facility] Work Phone: Comment on above: Expected: 04/30/2025 (Approximate), Expi res: 02/28/2026 Start: 04-30-2025 End: 02-28-2026 CT Chest W contrast IV CT CHEST W IVCON Radiology Routine Malignant neoplasm of urinary bladder, unspecified site (HCC) Lung nodules Stage 3a chronic kidney disease (HCC) Anemia, unspecified type Malignant neoplasm of overlapping sites of bladder (HCC) Expected: 04/30/2025 (Approximate), Expires: 02/28/2026 [facility] Comment on above: Expected: 04/30/2025 (Approximate), Expi res: 02/28/2026 Start: 04-30-2025 End: 01-29-2026 Ferritin [Mass/volume] in Serum or Plasma FERRITIN Lab Routine Malignant neoplasm of urinary bladder, unspecified site (HCC) Lung nodules Stage 3a chronic kidney disease (HCC) Anemia, unspecified type Malignant neoplasm of overlapping sites of bladder (HCC) Expected: 04/30/2025 (Approximate), Expires: 01/29/2026 [facility] Comment on above: Expected: 04/30/2025 (Approximate), Expi res: 01/29/2026 Start: 04-30-2025 End: 01-29-2026 Folate [Mass/volume] in Serum or Plasma FOLATE, SERUM Lab Routine Malignant neoplasm of urinary bladder, unspecified site (HCC) Lung nodules Stage 3a chronic kidney disease (HCC) Anemia, unspecified type Malignant neoplasm of overlapping sites of bladder (HCC) Expected: 04/30/2025 (Approximate), Expires: 01/29/2026 [facility] Comment on above: Expected: 04/30/2025 (Approximate), Expi res: 01/29/2026 Start: 04-30-2025 End: 01-29-2026 Iron and Iron binding capacity panel - Serum or Plasma IRON AND TIBC Lab Routine Malignant neoplasm of urinary bladder, unspecified site (HCC) Lung nodules Stage 3a chronic kidney disease (HCC) Anemia, unspecified type Malignant neoplasm of overlapping sites of bladder (HCC) Expected: 04/30/2025 (Approximate), Expires: 01/29/2026 [facility] Comment on above: Expected: 04/30/2025 (Approximate), Expi res: 01/29/2026 Start: 04-29-2025 End: 04-29-2025 Patient encounter procedure Radiation Oncology Comment on above: follow up Start: 03-31-2025 End: 03-31-2025 Patient encounter procedure 03/31/2025 8:30 AM EDT Office Visit [facility] [address] [facility] [address] [place] [address] Theodora Love, [employer] [address] [facility] [address] [place] [address] [facility] Start: 03-16-2025 Duplex scan of lower limb veins US venous duplex LE LT [facility] Start: 03-16-2025 US Lower extremity vein - left [facility] Start: 03-16-2025 End: 03-16-2027 Vascular US Lower Extremity Venous Duplex Left Vascular US Lower Extremity Venous Duplex Left Vascular Ultrasound STAT Localized edema Expected: 03/16/2025 (Approximate), Expires: 03/16/2027 [facility] Work Phone: Comment on above: Expected: 03/16/2025 (Approximate), Expi res: 03/16/2027 Start: 03-11-2025 COVID-19 Vaccine ( season) COVID-19 Vaccine ( season) [facility] Start: 01-27-2025 End: 01-27-2025 Follow-up encounter 01/27/2025 9:00 AM EDT Visit (SP) Office Hematology/Oncology [address] [place] [address] [place] [address] Eugene Chaparro MD [address] [place] [address] 3 month follow up after CT scan Hematology/Oncology Comment on above: 3 [address] follow up after [address] scan Start: 01-26-2025 End: 10-28-2025 CBC W Auto Differential panel - Blood COMPLETE BLOOD COUNT AND DIFFERENTIAL Lab Routine Malignant neoplasm of urinary bladder, unspecified site (HCC) Expected: 01/26/2025 (Approximate), Expires: 10/28/2025 [facility] Comment on above: Expected: 01/26/2025 (Approximate), Expi res: 10/28/2025 Start: 01-26-2025 End: 10-28-2025 Comprehensive metabolic 2000 panel - Serum or Plasma COMPREHENSIVE METABOLIC PANEL Lab Routine Malignant neoplasm of urinary bladder, unspecified site (HCC) Expected: 01/26/2025 (Approximate), Expires: 10/28/2025 [facility] Comment on above: Expected: 01/26/2025 (Approximate), Expi res: 10/28/2025 Start: 01-26-2025 End: 11-27-2025 CT Abdomen and Pelvis W contrast IV CT ABD/PEL W IVCON Radiology Routine Malignant neoplasm of urinary bladder, unspecified site (HCC) Expected: 01/26/2025 (Approximate), Expires: 11/27/2025 [facility] Work Phone: Comment on above: Expected: 01/26/2025 (Approximate), Expi res: 11/27/2025 Start: 01-26-2025 End: 11-27-2025 CT Chest W contrast IV CT CHEST W IVCON Radiology Routine Malignant neoplasm of urinary bladder, unspecified site (HCC) Lung nodules Expected: 01/26/2025 (Approximate), Expires: 11/27/2025 [facility] Comment on above: Expected: 01/26/2025 (Approximate), Expi res: 11/27/2025 Start: 01-20-2025 End: 01-20-2025 Patient encounter procedure 01/20/2025 7:15 AM EDT Appointment Radiology Pet CT [address] [place] [address] CT CAP W IV Radiology Pet CT Comment on above: CT CAP W IV Start: 11-04-2024 End: 11-04-2024 Patient encounter procedure 11/04/2024 11:00 AM EST Office Visit Radiation Oncology [address] [place] [address] Suzanne Grajeda MD [address] [place] [address] 3 month rv Radiation Oncology Comment on above: 3 month rv Start: 10-28-2024 End: 10-28-2024 Follow-up encounter 10/28/2024 11:20 AM EST Visit (SP) Office Hematology/Oncology [address] [place] [address] Eugene Chaparro MD [address] [place] [address] 3 month follow up after [address] scan Hematology/Oncology Comment on above: 3 month follow up after [address] scan Start: 10-28-2024 End: 10-28-2024 Patient encounter procedure 10/28/2024 10:30 AM EST Office Visit Radiation Oncology [address] [place] [address] Suzanne Grajeda MD [address] [place] [address] 3 month rv Radiation Oncology Comment on above: 3 month rv Start: 10-21-2024 Advance Directive Discussion Advance Directive Discussion [facility] Start: 10-20-2024 End: 10-20-2024 Patient encounter procedure 10/20/2024 12:45 PM EST Appointment Radiology Pet CT [address] [place] [address] Comment on above: PET Start: 10-09-2024 Diabetes mellitus screening Diabetes Screening [facility] Start: 10-07-2024 End: 10-07-2024 Follow-up encounter 10/07/2024 10:30 AM EST Visit (SP) Office Hematology/Oncology [address] [place] [address] Eugene Chaparro MD [address] [place] [address] [place] [address] 3 month follow up after CT scan Hematology/Oncology Comment on above: 3 month follow up after [address] scan Start: 09-30-2024 End: 07-01-2025 CBC W Auto Differential panel - Blood COMPLETE BLOOD COUNT AND DIFFERENTIAL Lab Routine 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) Anemia, unspecified type Expected: 09/30/2024 (Approximate), Expires: 07/01/2025 [facility] Work Phone: Comment on above: Expected: 09/30/2024 (Approximate), Expi res: 07/01/2025 Start: 09-30-2024 End: 07-01-2025 Cobalamin (Vitamin B12) [Mass/volume] in Serum or Plasma VITAMIN B12 Lab Routine 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) Anemia, unspecified type Expected: 09/30/2024 (Approximate), Expires: 07/01/2025 [facility] Comment on above: Expected: 09/30/2024 (Approximate), Expi res: 07/01/2025 Start: 09-30-2024 End: 07-01-2025 Comprehensive metabolic 2000 panel - Serum or Plasma COMPREHENSIVE METABOLIC PANEL Lab Routine 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) Anemia, unspecified type Expected: 09/30/2024 (Approximate), Expires: 07/01/2025 [facility] Comment on above: Expected: 09/30/2024 (Approximate), Expi res: 07/01/2025 Start: 09-30-2024 End: 07-31-2025 CT Abdomen and Pelvis W contrast IV CT ABD/PEL W IVCON Radiology Routine 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) Expected: 09/30/2024 (Approximate), Expires: 07/31/2025 [facility] Comment on above: Expected: 09/30/2024 (Approximate), Expi res: 07/31/2025 Start: 09-30-2024 End: 07-01-2025 Ferritin [Mass/volume] in Serum or Plasma FERRITIN Lab Routine 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) Anemia, unspecified type Expected: 09/30/2024 (Approximate), Expires: 07/01/2025 [facility] Comment on above: Expected: 09/30/2024 (Approximate), Expi res: 07/01/2025 Start: 09-30-2024 End: 07-01-2025 Folate [Mass/volume] in Serum or Plasma FOLATE, SERUM Lab Routine 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) Anemia, unspecified type Expected: 09/30/2024 (Approximate), Expires: 07/01/2025 [facility] Comment on above: Expected: 09/30/2024 (Approximate), Expi res: 07/01/2025 Start: 09-30-2024 End: 07-01-2025 Iron and Iron binding capacity panel - Serum or Plasma IRON AND TIBC Lab Routine 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) Anemia, unspecified type Expected: 09/30/2024 (Approximate), Expires: 07/01/2025 [facility] Comment on above: Expected: 09/30/2024 (Approximate), Expi res: 07/01/2025 Start: 09-30-2024 End: 09-30-2024 Patient encounter procedure 09/30/2024 9:15 AM EST Appointment Radiology Pet CT [address] [place] [address] [place] [address] CT CAP W IV labs Radiology Pet CT Comment on above: CT CAP W IV labs Start: 09-28-2024 End: 09-28-2024 Patient encounter procedure 09/28/2024 2:00 PM EST Office [facility] [address] [place] [address] [place] [address] Memo Mccall MD [address] [place] [address] [facility] Start: 07-27-2024 End: 07-27-2024 Patient encounter procedure 07/27/2024 1:40 PM EDT Office Visit Colorectal Surgery [facility] [place] [address] [place] [address] [place] [address] Chaparro possible bowel strictures Colorectal Surgery Comment on above: From Dr. Chaparro possible bowel strict ures Start: 07-01-2024 End: 07-01-2024 Follow-up encounter 07/01/2024 2:15 PM EDT Visit (SP) Office Hematology/Oncology [address] [place] [address] [place] [address] Eugene Chaparro MD [address] [place] [address] Followup after Radiation-Sees [facility] after GENA Hematology/Oncology Comment on above: Followup after Radiation-Sees [place] after GENA Start: 07-01-2024 End: 07-01-2024 Patient encounter procedure [facility] Comment on above: Lab 3 month rv Start: 06-25-2024 E[facility]ocardiography [facility] Start: 06-21-2024 Covid-19 Vaccine ( season) Covid-19 Vaccine ( season) [facility] Start: 06-21-2024 Covid-19 Vaccine ( season) Covid-19 Vaccine ( season) [facility] Start: 06-21-2024 Influenza vaccination Influenza Vaccine (#1) [facility] Start: 05-20-2024 End: 05-20-2024 Patient encounter procedure 05/20/2024 9:50 AM EDT Office Visit [facility] [address] [facility] [address] [place] [address] George Morgan DO [address] [facility] [address] [place] [address] [facility] Start: 03-25-2024 End: 03-25-2024 Follow-up encounter Hematology/Oncology Comment on above: Followup after Radiation Followup after Radia tion-Sees [place] after GENA Start: 03-25-2024 End: 03-25-2024 Patient encounter procedure [facility] Comment on above: Lab 3 week rv Start: 03-02-2024 End: 03-02-2024 Patient encounter procedure Radiation Oncology Comment on above: Bladder Boost - EMPTY Location: [facility] Start: 02-28-2024 End: 02-28-2024 Patient encounter procedure 02/28/2024 9:00 AM EDT Appointment Radiation Oncology [address] [place] [address] Bladder Boost - EMPTY Radiation Oncology Comment on above: Bladder Boost - EMPTY Start: 02-27-2024 End: 02-27-2024 Patient encounter procedure 02/27/2024 9:00 AM EDT Appointment Radiation Oncology [address] [place] [address] Bladder Boost - EMPTY Radiation Oncology Comment on above: Bladder Boost - EMPTY Start: 02-26-2024 End: 02-26-2024 Follow-up encounter 02/26/2024 10:15 AM EDT Visit (SP) Office Hematology/Oncology [address] [place] [address] Eugene Chaparro MD [address] [place] [address] 2 week follow up with lab / Tox check Hematology/Oncology Comment on above: 2 week follow up with lab / Tox check Start: 02-26-2024 End: 02-26-2024 Patient encounter procedure Radiation Oncology Comment on above: Bladder Boost - EMPTY 2 week follow up wit h lab / Tox check Bladder Boost - EMPT Y- lab 10 umesh 1015 Start: 02-25-2024 End: 02-25-2024 Patient encounter procedure 02/25/2024 9:00 AM EDT Appointment Radiation Oncology [address] [place] [address] Bladder Boost - EMPTY Radiation Oncology Comment on above: Bladder Boost - EMPTY Start: 02-24-2024 End: 02-24-2024 Patient encounter procedure Radiation Oncology Comment on above: Bladder Boost - EMPTY Location: [facility] Start: 02-21-2024 End: 02-21-2024 Patient encounter procedure 02/21/2024 9:00 AM EDT Appointment Radiation Oncology [address] [place] [address] Bladder Boost - EMPTY Radiation Oncology Comment on above: Bladder Boost - EMPTY Start: 02-20-2024 End: 02-20-2024 Patient encounter procedure 02/20/2024 9:00 AM EDT Appointment Radiation Oncology [address] [place] [address] Bladder Boost - EMPTY Radiation Oncology Comment on above: Bladder Boost - EMPTY Start: 02-19-2024 End: 05-20-2024 Bacteria identified in Urine by Culture [facility] Comment on above: Expected: 02/19/2024 (Approximate), Expi res: 05/20/2024 Start: 02-19-2024 End: 05-20-2024 UA DIP, URINE (POC) UA DIP, URINE (POC) Lab Routine 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) Expected: 02/19/2024 (Approximate), Expires: 05/20/2024 [facility] Work Phone: Comment on above: Expected: 02/19/2024 (Approximate), Expi res: 05/20/2024 Start: 02-19-2024 End: 02-19-2024 Follow-up encounter 02/19/2024 9:30 AM EDT [facility] Hematology/Oncology [address] [place] [address] Shila, Chair [address] [place] [address] [place] [address] 1 week lab follow up and chemotx Cisplatin w/ XRT Hematology/Oncology Comment on above: 1 week lab follow up and chemotx Cisplat in w/ XRT Start: 02-19-2024 End: 02-19-2024 Patient encounter procedure 02/19/2024 9:00 AM EDT Appointment Radiation Oncology [address] [place] [address] Bladder Boost - EMPTY Radiation Oncology Comment on above: Bladder Boost - EMPTY Start: 02-18-2024 End: 02-18-2024 Patient encounter procedure Radiation Oncology Comment on above: START BLADDER BOOST Bladder Boost - EMPT Y Start: 02-17-2024 End: 02-17-2024 Patient encounter procedure Radiation Oncology Comment on above: Bladder - EMPTY Location: [facility] Start: 02-14-2024 End: 02-14-2024 Patient encounter procedure 02/14/2024 9:30 AM EDT Appointment Radiation Oncology [address] [place] [address] Bladder - EMPTY Radiation Oncology Comment on above: Bladder - EMPTY Start: 02-13-2024 End: 02-13-2024 Patient encounter procedure 02/13/2024 9:30 AM EDT Appointment Radiation Oncology [address] [place] [address] [place] [address] Bladder - EMPTY Radiation Oncology Comment on above: Bladder - EMPTY Start: 02-12-2024 End: 02-12-2024 Follow-up encounter Hematology/Oncology Comment on above: 1 week lab follow up and chemotx Cisplat in w/ XRT-Radiation Prior 1 week lab follow up and chemotx Cisplatin w/ XRT Start: 02-12-2024 End: 02-12-2024 Patient encounter procedure [facility] Comment on above: 1 week lab follow up and chemotx Cisplat in w/ XRT Bladder - EMPTY- lab s 9:15, Gena 9:45 chemo 10 Start: 02-11-2024 End: 02-11-2024 Patient encounter procedure 02/11/2024 9:30 AM EDT Appointment Radiation Oncology [address] [place] [address] [place] [address] Bladder - EMPTY Radiation Oncology Comment on above: Bladder - EMPTY Start: 02-04-2024 End: 05-05-2024 CBC W Auto Differential panel - Blood CBC + DIFF Lab Routine 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) Expected: 02/04/2024 (Approximate), Expires: 05/05/2024 [facility] Work Phone: Comment on above: Expected: 02/04/2024 (Approximate), Expi res: 05/05/2024 Start: 02-04-2024 End: 05-05-2024 Comprehensive metabolic 2000 panel - Serum or Plasma COMP METABOLIC PANEL Lab Routine 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) Expected: 02/04/2024 (Approximate), Expires: 05/05/2024 [facility] Work Phone: Comment on above: Expected: 02/04/2024 (Approximate), Expi res: 05/05/2024 Start: 02-04-2024 End: 05-05-2024 Magnesium [Mass/volume] in Serum or Plasma MAGNESIUM BLD Lab Routine 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) Expected: 02/04/2024 (Approximate), Expires: 05/05/2024 [facility] Work Phone: Comment on above: Expected: 02/04/2024 (Approximate), Expi res: 05/05/2024 Start: 11-20-2023 FUV, Provider: George Morgan, Status: Pen, Time: 9:20 AM FUV, Provider: George Morgan, Status: Pen, Time: 9:20 AM [facility] DO Work Phone: Start: 10-21-2023 Advance Directive Discussion Advance Directive Discussion [facility] Start: 10-21-2023 Behavioral Health Screening Behavioral Health Screening [facility] Start: 10-21-2023 Depression Assessment Depression Assessment [facility] Start: 06-25-2023 ECHO, Provider: SHILA DIAZI ULTRASOUND 01,[id number], Status: Pen, Time: 12:30 PM ECHO, Provider: SHILA HHVI ULTRASOUND 01,[id number], Status: Pen, Time: 12:30 PM [facility] 250 DO Work Phone: Start: 06-21-2023 Covid-19 Vaccine ( season) Covid-19 Vaccine ( season) [facility] Start: 06-21-2023 COVID-19 VACCINE ( season) COVID-19 VACCINE ( season) [facility] Start: 06-21-2023 Covid-19 Vaccine ( season) Covid-19 Vaccine ( season) [facility] Start: 06-21-2023 Influenza vaccination INFLUENZA VACCINE (#1) [place] Start: 04-23-2023 [facility] Start: 04-22-2023 End: 04-22-2023 Referral to family consultant [facility] Start: 04-22-2023 Referral to cardiac rehabilitation program [facility] Start: 04-22-2023 Hospital admission [facility] Start: 10-21-2022 ADVANCE DIRECTIVE DISCUSSION ADVANCE DIRECTIVE DISCUSSION [facility] Start: 10-21-2022 DEPRESSION ASSESSMENT DEPRESSION ASSESSMENT [facility] Start: 06-21-2022 Influenza vaccination INFLUENZA (#1) [facility] Start: 10-24-2018 Pneumococcal vaccination PNEUMOCOCCAL VACCINE SERIES (2 - PCV) [facility] Start: 10-24-2018 Pneumococcal Vaccine: 65+ Years (2 - PCV) Pneumococcal Vaccine: 65+ Years (2 - PCV) [facility] Start: 01-22-2015 DIABETES SCREEN DIABETES SCREEN [facility] Start: 2011 RSV Vaccine (1 - 1-dose 75+ series) RSV Vaccine (1 - 1-dose 75+ series) [facility] Start: 03-21-2003 Medicare Annual Wellness Visit Medicare Annual Wellness Visit [facility] Start: 2001 PNEUMOCOCCAL: 65+ (1 - PCV) PNEUMOCOCCAL: 65+ (1 - PCV) [facility] Start: 1996 RSV Vaccine (1 - 1-dose 60+ series) RSV Vaccine (1 - 1-dose 60+ series) [facility] Start: 1986 SHINGRIX VACCINE (1 of 2) SHINGRIX VACCINE (1 of 2) [facility] Start: 1981 Screening for malignant neoplasm of colon COLORECTAL CANCER SCREENING DISCUSSION [facility] Start: 1955 Shingrix Vaccine (1 of 2) Shingrix Vaccine (1 of 2) [facility] Start: 1955 Urine microalbumin profile [facility] Start: 1954 Anxiety Screening Anxiety Screening [facility] Start: 1954 Depression Screening Depression Screening [facility] Start: 1942 Pneumococcal Vaccine: 65+ (1 of 2 - PCV) Pneumococcal Vaccine: 65+ (1 of 2 - PCV) [facility] Start: 1936 COVID-19 VACCINE (#1) COVID-19 VACCINE (#1) [facility] Start: 1936 Creatinine measurement Creatinine Level [facility] Start: 1936 Lipid panel Lipid Panel [facility] Start: 1936 Medicare Annual Wellness Visit Medicare Annual Wellness Visit (AWV) [facility] Start: 1936 Potassium measurement Potassium Level [facility] Calprotectin [Mass/m ass] in Stool [facility] End: 01-02-2025 CBC W Auto Differential panel - Blood CBC + DIFF Lab Routine 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) Once per week for 30 Occurrences starting 01/03/2024 until 01/02/2025, 1 completed [facility] Work Phone: Comment on above: Once per week for 30 Occurrences startin g 01/03/2024 until 01/02/2025, 1 completed End: 01-02-2025 Comprehensive metabolic 2000 panel - Serum or Plasma COMP METABOLIC PANEL Lab Routine 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) Every other week for 26 Occurrences starting 01/03/2024 until 01/02/2025, 1 completed [facility] Work Phone: Comment on above: Every other week for 26 Occurrences star ting 01/03/2024 until 01/02/2025, 1 completed End: 07-31-2025 CT Chest W contrast IV CT CHEST W IVCON Radiology Routine 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) 1 Occurrences starting 07/01/2024 until 07/31/2025 [facility] Comment on above: 1 Occurrences starting 07/01/2024 until 07/31/2025 CT Guidance for radi ation treatment of Unspecified body region CT SIM PLANNING RADIATION ONCOLOGY Radiology Routine 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) Ordered: 01/13/2024 [facility] Work Phone: Comment on above: Ordered: 01/13/2024 End: 10-09-2023 GOLD TOP TUBE [facility] Comment on above: Once for 1 Occurrences starting 10/09/20 until 10/09/2023 End: 10-09-2023 LAVENDER TOP TUBE [facility] Comment on above: Once for 1 Occurrences starting 10/09/20 until 10/09/2023 OCCULT BLD EXAM-DIAG OCCULT BLD EXAM-DIAG Microbiology Routine 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) Dark stools 02/07/2024 9:14 AM EDT [facility] Work Phone: Patient Education Coronary Angio plasty (DC) Coronary Stenting (DC) Angina (DC) Chest Pain (DC) Drug Eluting Stents [facility] Work Phone: Patient referral [facility] Work Phone: PET+CT Guidance for localization of tumor of Skull base to mid-thigh-- W [id number] IV NM PET/CT SKULL-THIGH SUBSEQUENT Radiology Routine Malignant neoplasm of urinary bladder, unspecified site (HCC) 10/20/2024 1:28 PM EST [facility] Work Phone: End: 10-09-2023 RAINBOW DRAW [facility] Work Phone: Comment on above: One Time for 1 Occurrences starting 09/21 until 10/09/2023 End: 03-18-2025 US Lower extremity vein - bilateral US DVT LOWER BILATERAL Radiology Routine 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) Edema leg 1 Occurrences starting 02/17/2024 until 03/18/2025 [facility] Work Phone: Comment on above: 1 Occurrences starting 02/17/2024 until 03/18/2025 [facility] Immunizations Immunization Date Immunization Notes Care Provider Kaitlynn morejon 12-27-2024 RSV, 60 Years And Older (AREXVY) Theodora Love [employer] CLERK Work Phone: [facility] Work Phone: 09-11-2024 influenza, high dose seasonal, preservative-free Theodora Love [employer] CLERK Work Phone: [facility] 09-11-2024 influenza virus vaccine, unspecified formulation Arrival Radiology Work Phone: [facility] 04-24-2024 Pneumococcal conjuga te vaccine, 20-valent (PREVNAR 20) Theodoradarnell Love [employer]NAG[employer] CLERK Work Phone: [facility] Work Phone: 07-08-2023 influenza nasal, unspecified formulation Sherron Singh RN Work Phone: [facility] 07-08-2023 influenza virus vaccine, unspecified formulation [facility] 07-08-2023 influenza, high dose seasonal, preservative-free Lesa Estrella Other [facility] 01-18-2023 tetanus toxoid, reduced diphtheria toxoid, and acellular pertussis vaccine, adsorbed Lesa Estrella Work Phone: [facility] 08-30-2022 COVID-19 Pfizer (Pediatric) Lesa Estrella Other [facility] 08-30-2022 Pfizer COVID-19 Vac Bivalent 30 MCG/0.3ML Intramuscular Suspension Lesa Estrella Work Phone: [facility] 07-02-2022 Fluad Quadrivalent 0 .5 ML Intramuscular Prefilled Syringe Lesa Estrella Work Phone: [facility] 07-02-2022 influenza nasal, unspecified formulation Sherron Singh RN Work Phone: [facility] 07-02-2022 influenza virus vaccine, split virus (incl. purified surface antigen) Lesa Estrella Other [employer] Other 07-02-2022 influenza virus vaccine, unspecified formulation Josafat Sun MD Work Phone: [facility] 01-19-2022 Comirnaty 30 MCG/0.3 ML Intramuscular Suspension Lesa Estrella Work Phone: [facility] 01-19-2022 COVID-19 Vaccine Pfizer - Documentation Purposes Only Lesa Estrella Other [facility] 10-01-2021 zoster vaccine recombinant Lesa Darvin Estrella Work Phone: [facility] 07-31-2021 diphtheria, tetanus toxoids and acellular pertussis vaccine, unspecified formulation Lesa Estrella Other [facility] 07-31-2021 influenza nasal, unspecified formulation Sherron Singh RN Work Phone: [facility] 07-31-2021 influenza virus vaccine, split virus (incl. purified surface antigen) Lesa Estrella Other [facility] 07-31-2021 influenza virus vaccine, unspecified formulation [facility] 07-27-2021 influenza, seasonal, injectable, preservative free Lesa Estrella Work Phone: [facility] 06-09-2021 Pfizer-BioNTech COVID-19 Vacc 30 MCG/0.3ML Intramuscular Suspension Lesa Estrella Work Phone: [facility] 04-14-2021 zoster vaccine recombinant Lesa Darvin Estrella Work Phone: [facility] 12-02-2020 Pfizer-BioNTech COVID-19 Vacc 30 MCG/0.3ML Intramuscular Suspension Lesa Estrella Work Phone: [facility] 11-10-2020 Pfizer-BioNTech COVID-19 Vacc 30 MCG/0.3ML Intramuscular Suspension Lesa Estrella Work Phone: [facility] 09-26-2020 bacillus calmette-blossom vaccine Kylie DIETRICH [facility] 09-12-2020 bacillus calmette-blossom vaccine Kylie DIETRICH [facility] 09-05-2020 bacillus calmette-blossom vaccine Kylie DIETRICH [facility] 08-29-2020 bacillus calmette-blossom vaccine Kylie DIETRICH [facility] 08-15-2020 bacillus calmette-blossom vaccine Kylie DIETRICH [facility] 08-08-2020 bacillus calmette-blossom vaccine Kylie DIETRICH [facility] 07-01-2020 influenza nasal, unspecified formulation Sherron Singh RN Work Phone: [facility] 07-01-2020 influenza virus vaccine, split virus (incl. purified surface antigen) Lesa Estrella Other [facility] 07-01-2020 influenza virus vaccine, unspecified formulation [facility] 08-03-2019 influenza, seasonal, injectable Lesa Estrella Work Phone: [facility] 07-15-2019 influenza nasal, unspecified formulation Sherron Singh RN Work Phone: [facility] 07-15-2019 influenza virus vaccine, split virus (incl. purified surface antigen) Lesa Estrella Other [facility] 07-15-2019 influenza virus vaccine, unspecified formulation [facility] 07-15-2018 AS03 adjuvant [employer] Work Phone: [facility] 07-15-2018 influenza nasal, unspecified formulation Sherron Singh RN Work Phone: [facility] 07-15-2018 influenza virus vaccine, split virus (incl. purified surface antigen) Lesa Estrella Other [facility] 07-15-2018 influenza virus vaccine, unspecified formulation [facility] 07-15-2018 Seasonal trivalent influenza vaccine, adjuvanted, preservative free Lesa Estrella Work Phone: [facility] 250 DO Work Phone: 10-24-2017 pneumococcal polysaccharide vaccine, 23 valent Lesa Estrella Work Phone: [facility] 06-27-2016 influenza nasal, unspecified formulation Sherron Singh RN Work Phone: [facility] 06-27-2016 influenza virus vaccine, split virus (incl. purified surface antigen) Lesa Estrella Other [facility] 06-27-2016 influenza virus vaccine, unspecified formulation [facility] 06-27-2016 pneumococcal conjuga te vaccine, 13 valent Lesa Estrella Other [facility] 10-29-2013 zoster vaccine, live Benjami amy Darvin Estrella Work Phone: [facility] Payers Date Payer Category Payer Self-pay [id number] 2022 Unknown 2016 Medicare supplementa l policy (as second payer) [employer] [id number] 2016 Private Health Insurance [id number] .[id number] .[id number] 2003 Medicare [id number] [id number] .[id number] 2001 Medicare [id number] 1959 Medicare [id number] 1959 Private Health Insurance [facility] [id number] 1936 Unknown [id number] 2.16.840.1.604678.3.579 .2.594 1936 Unknown [id number] 2.16.840.1.370531.3.579 .2.594 1936 Unknown [id number] 2.840.1.918924.3.579 .2.593 1936 Unknown [id number] 2..840.1.457403.3.579 .2.593 1936 Unknown [id number] 2.840.1.863690.3.579 .2.593 1936 Unknown [id number] 2.840.1.771727.3.579 .2.593 1936 Unknown [id number] 2.840.1.653490.3.579 .2.593 1936 Unknown [id number] 2.840.1.860453.3.579 .2.593 1936 Unknown [id number] 2.840.1.427130.3.579 .2.593 1936 Unknown [id number] 2.840.1.071484.3.579 .2.593 1936 Unknown [id number] 2.840.1.364453.3.579 .2.593 1936 Unknown [id number] 2.840.1.942765.3.579 .2.593 1936 Unknown [id number] 2.840.1.749997.3.579 .2.593 1936 Unknown [id number] 2.840.1.868664.3.579 .2.593 1936 Unknown [id number] 2.840.1.417709.3.579 .2.593 1936 Unknown [id number] 2.840.1.709032.3.579 .2.593 1936 Unknown [id number] 2.16.840.1.942902.3.579 .2.593 1936 Unknown [id number] 2.16.840.1.824180.3.579 .2.593 1936 Unknown [id number] 2.16.840.1.912595.3.579 .2.593 1936 Unknown [id number] 2.16.840.1.211021.3.579 .2.593 1936 Unknown [id number] 2.16.840.1.868842.3.579 .2.593 1936 Unknown [id number] 2..840.1.851635.3.579 .2.1068 1936 Unknown [id number] 2.840.1.696992.3.579 .2.356 1936 Unknown [id number] 2.840.1.109392.3.579 .2.356 1936 Unknown [id number] 2..840.1.815041.3.579 .2.356 1936 Unknown [id number] 2.840.1.411437.3.579 .2.727 1936 Unknown [id number] 2.840.1.747222.3.579 .2.727 1936 Unknown [id number] 2..840.1.734143.3.579 .2.727 1936 Unknown [id number] 2..840.1.593016.3.579 .2.727 1936 Unknown [id number] 2.16.840.1.455484.3.579 .2.727 1936 Unknown [id number] 2.16.840.1.918443.3.579 .2.727 1936 Unknown [id number] 2.16840.1.039645.3.579 .2.727 1936 Unknown [id number] 2.16.840.1.874654.3.579 .2.727 1936 Unknown [id number] 2.16.840.1.631243.3.579 .2.727 1936 Unknown [id number] 2.16.840.1.386298.3.579 .2.727 1936 Unknown [id number] 2.16.840.1.996265.3.579 .2.727 1936 Unknown [id number] 2.16.840.1.643189.3.579 .2.727 1936 Unknown [id number] 2.16.840.1.881838.3.579 .2.1244 1936 Unknown [id number] 2.16.840.1.036783.3.579 .2.1244 1936 Unknown [id number] 2.16.840.1.227766.3.579 .2.1244 Unknown [id number] 2.16.840.1.694465.3.579 .2.531 Unknown [id number] 2.16.840.1.927192.3.579 .2.531 Unknown [id number] 2.16.840.1.799618.3.579 .2.531 Social History Date Type Detail Facility Start: 09-01-2021 End: 12-31-2023 Tobacco smoking status Never smoked tobacco (finding) [facility] Start: 11-04-2022 End: 12-31-2023 Sex Assigned At Male [facility] Start: 01-23-2012 End: 12-31-2023 Tobacco use and exposure Smokeless tobacco non-user [facility] Work Phone: Start: 01-14-2023 End: 05-19-2025 Alcohol intake Current drinker of alcohol (finding) [facility] Start: 01-14-2023 Alcohol Comment 1/5 of whiskey every 6 months [facility] Start: 1936 Sex Assigned At Not on file C [facility] Start: 1936 Sex Assigned At Male F [facility] Start: 11-04-2022 End: 12-31-2023 No illicit drug use No illicit drug use [facility] Start: 11-04-2022 Alcohol intake Lifetime non-d yu (finding) [facility] Start: 11-20-2023 Alcohol Comment beer [facility] Work Phone: Start: 11-10-2023 End: 03-31-2025 Exposure to SARS-CoV-2 (event) Not sure [facility] National Score (1-10 0), lower number is lower risk 60 [facility] Start: 12-31-2023 Alcohol Comment beer rarely [place] [facility] Start: 11-24-2024 End: 03-23-2025 Sex Male (finding) [facility] Start: 03-16-2025 Alcohol Comment not very often [facility] Work Phone: Sexual Orientation [facility] Medical Equipment Procedure Code Equipment Code Equipment Origin al Text Equipment Identifier Dates CL STENT YAIR FRONTIER 3.0 X 12 FDA Start: 04-22-2023 CL STENT YAIR FRONTIER 3.0 X 12 FDA Start: 04-22-2023 CL STENT YAIR FRONTIER 3.0 X 12 FDA Start: 04-22-2023 CL STENT YAIR FRONTIER 3.0 X 12 FDA Start: 04-22-2023 CL STENT YAIR FRONTIER 3.0 X 12 FDA Start: 04-22-2023 CL STENT YAIR FRONTIER 3.0 X 12 FDA Start: 04-22-2023 CL STENT YAIR FRONTIER 3.0 X 12 FDA Start: 04-22-2023 CL STENT YAIR FRONTIER 3.0 X 12 FDA Start: 04-22-2023 CL STENT YAIR FRONTIER 3.0 X 12 FDA Start: 04-22-2023 CL STENT YAIR FRONTIER 3.0 X 12 FDA Start: 04-22-2023 Goals Date Patient Goal Desired Activity /State Functional Status Date Assessment Result Facility 07-16-2024 Functional Status N/A [facility] 04-20-2024 Functional Status N/A [facility] 12-05-2023 Functional Status No [facility] 04-23-2023 Functional status Patient at Baseline [facility] Work Phone: Mental Status Date Assessment Result Facility 04-23-2023 Cognitive function Cognitive Sta tus Patient at Baseline [facility] Work Phone: Clinical Notes 07-22-1994 to 05-19-2025 Suzanne Grajeda MD - 05/19/2025 9:25 AM EDTPatient InstructionsAbEugene whitaker MD - 05/19/2025 9:00 AM Ewa Parsons RN - 05/14/2025 7:15 AM EDTPatient InstructionsPatient Instructions Note Date & Type Note Facility 05-19-2025 Note HNO ID: [id number] Author: Suzanne GRAJEDA MD Service: ? Author Type: Physician Type: Progress Notes Filed: 05/19/2025 09:42 Note Text: Radiation Oncology - Follow Up Note PATIENT [...] fractions ELAPSED TIME: 42 days. INTERVAL HISTORY: Overall doing well. Denies any recent changes. Denies hematuria. RADIOLOGY: CT chest 05/14/2025:No metastatic disease in the chest. CT abdomen 05/14/2025: IMPRESSION: No metastatic disease in the abdomen or pelvis. CT chest 09/30/2024: New 1.1 cm right upper lobe nodule and 0.6 cm right middle lobe nodule. Consider PET CT to assess the dominant pulmonary nodule, otherwise attention on follow-up is recommended. CT abdomen and pelvis 09/30/2024: No metastatic disease in the abdomen or pelvis. 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 PET/CT 10/20/2024: Circumferential bladder wall thickening with perivesical and perirectal fat stranding likely representing postradiation changes. Nonavid right upper and middle lobe lung nodules, recommend follow-up with CT. ALLERGIES Allergen Reactions Amoxicillin Other: See Comments Pt gets sores in mouth MEDICATIONS: furosemide (LASIX) 20 mg tablet Take 20 mg by mouth at bedtime as needed. loratadine (CLARITIN) 10 mg tablet Take 10 mg by mouth. losartan (COZAAR) 25 mg tablet Take 25 mg by mouth once daily. sildenafil (VIAGRA) 50 mg tablet TAKE 1-2 TABLETS BY MOUTH 1 HR BEFORE SEXUAL ACTIVITY. DO NOT EXCEED 2 TABS/24 HRS. CARROLL CHEWABLE ASPIRIN 81 mg chewable tablet [...] mg cap Take by mouth once daily. iv contrast (will be provided with radiology [...] in the CT contrast administration guidelines link. enteric contrast (will be provided with radiology test) For CT CHESTABD/PEL W IVCON Routine order Administer, As Directed One Time Only, via Oral, Rectal, both Oral and Rectal, Enteric Tube, Stoma or Indwelling Catheter, Enteric Contrast as designated per enteric contrast guidelines iv contrast (will be provided with radiology [...] in the CT contrast administration guidelines link. enteric contrast (will be provided with radiology test) For CT CHESTABD/PEL W IVCON Routine order Administer, As Directed One Time Only, via Oral, Rectal, both Oral and Rectal, Enteric Tube, Stoma or Indwelling Catheter, Enteric Contrast as designated per enteric contrast guidelines iv contrast (will be provided with radiology [...] in the CT contrast administration guidelines link. enteric contrast (will be provided with radiology test) For CT CHESTABD/PEL W IVCON Routine order Administer, As Directed One Time Only, via Oral, Rectal, both Oral and Rectal, Enteric Tube, Stoma or Indwelling Catheter, Enteric Contrast as designated per enteric contrast guidelines iv contrast (will be provided with radiology test) CT Chest ABD/PEL-Inject, intravenously, once for 1 dose.No IV access, inser (more content not included)... [facility] 05-19-2025 History of Present illness Narrative Radiation Oncology [...] fractions ELAPSED TIME: 42 days. INTERVAL HISTORY: Overall doing well. Denies any recent changes. Denies hematuria. RADIOLOGY: CT chest 05/14/2025:No metastatic disease in the chest. CT abdomen 05/14/2025: IMPRESSION: No metastatic disease in the abdomen or pelvis. CT chest 09/30/2024: New 1.1 cm right upper lobe nodule and 0.6 cm right middle lobe nodule. Consider PET CT to assess the dominant pulmonary nodule, otherwise attention on follow-up is recommended. CT abdomen and pelvis 09/30/2024: No metastatic disease in the abdomen or pelvis. 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 PET/CT 10/20/2024: Circumferential bladder wall thickening with perivesical and perirectal fat stranding likely representing postradiation changes. Nonavid right upper and middle lobe lung nodules, recommend follow-up with CT. ALLERGIES Allergen Reactions Amoxicillin Other: See Comments Pt gets sores in mouth MEDICATIONS: furosemide (LASIX) 20 mg tablet Take 20 mg by mouth at bedtime as needed. loratadine (CLARITIN) 10 mg tablet Take 10 mg by mouth. losartan (COZAAR) 25 mg tablet Take 25 mg by mouth once daily. sildenafil (VIAGRA) 50 mg tablet TAKE 1-2 TABLETS BY MOUTH 1 HR BEFORE SEXUAL ACTIVITY. DO NOT EXCEED 2 TABS/24 HRS. CARROLL CHEWABLE ASPIRIN 81 mg chewable tablet [...] mg cap Take by mouth once daily. iv contrast (will be provided with radiology [...] in the CT contrast administration guidelines link. enteric contrast (will be provided with radiology test) For CT CHESTABD/PEL W IVCON Routine order Administer, As Directed One Time Only, via Oral, Rectal, both Oral and Rectal, Enteric Tube, Stoma or Indwelling Catheter, Enteric Contrast as designated per enteric contrast guidelines iv contrast (will be provided with radiology [...] in the CT contrast administration guidelines link. enteric contrast (will be provided with radiology test) For CT CHESTABD/PEL W IVCON Routine order Administer, As Directed One Time Only, via Oral, Rectal, both Oral and Rectal, Enteric Tube, Stoma or Indwelling Catheter, Enteric Contrast as designated per enteric contrast guidelines iv contrast (will be provided with radiology [...] in the CT contrast administration guidelines link. enteric contrast (will be provided with radiology test) For CT CHESTABD/PEL W IVCON Routine order Administer, As Directed One Time Only, via Oral, Rectal, both Oral and Rectal, Enteric Tube, Stoma or Indwelling Catheter, Enteric Contrast as designated per enteric contrast guidelines iv contrast (will be provided with radiology [...] in the CT contrast administration guidelines link. enteric contrast (will be provided with radiology test) For CT CHESTABD/PEL W IVCON Routine order Administer, As Directed One Time Only, via Oral, Rectal, both Oral and Rectal, Enteric Tube, Stoma or Indwelling Catheter, Enteric Contrast as designated per enteric contrast guidelines Catheter ([facility] MALE EXTERNAL CATH) misc 1 Device once [...] rashes or other skin changes. PHYSICAL EXAM: 05/19/25 Weight 93.2 kg (205 lb 7.5 oz) Height 178.4 cm (5' 10.24 ) BSA 2.15 BMI 29.28 Temp 36.2 C (97.1 F) Pulse 68 Resp 16 BP 136/64 SpO2 99 % KPS: 90 General Appearance: Alert and oriented. No acute distress. Neck: Normal ROM. No palpable cervical or supraclavicular adenopathy. Chest: Clear to auscultation percussion Abdomen: Soft. Nontender. Nondistended. Musculoskeletal: No edema. Normal ROM in extremities. No bone or spine tenderness. Neuro: Speech fluent. Gait normal. No focal deficits. Skin: No rashes noted Lymphatics: No palpable lymphadenopathy. ASSESSMENT AND PLAN: Bladder cancer, high-grade locally advanced T2b/T3b N0 M0 1 Bladder cancer: Overall doing well clinically. Has follow-up upcoming with Dr. Dietrich. Has continued surveillance scans every [address] Chaparro I will plan to see patient back on an as-needed basis. 2. Lung nodules PET without suspicious uptake. Likely benign patient continue CT surveillance. Signed by: Suzanne Grajeda MD cc: Lesa Estrella (Stuart) [address] [place] [address] No referring provider defined for this encounter. documented in this encounter [facility] 05-19-2025 Instructions Eugene Chaparro MD - 05/19/2025 9:17 AM EDT SUMMARIZED PLAN OF CARE: Follow up with Dr. Dietrich as scheduled CT CAP with labs in 6 months RTC 1 week after 1. 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 Patient has been clear since completing chemotherapy and radiation in January-February of last year. - Continue follow-up with Dr. Dietrich every 3 months. - Extend interval for surveillance scans to every 6 months. 2. 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 Previous concern for a nodule in September of last year led to a PET scan, which showed no concerning findings. - Monitor with follow-up imaging in 6 months. 3. Atherosclerosis of aorta (I70.0) CT scans revealed plaque formation in the aorta, consistent with vascular disease. No aneurysm detected in the abdomen. documented in this encounter [facility] 05-19-2025 History of Present illness Narrative Images from the original note were not included. NAME: Kennedy Kong [facility] NO.: [id number] DATE OF SERVICE: May 19, 2025 (Deann) Some elements in this clinic note that are critical to medical decision making have been carefully reviewed and included from a prior clinic note dated: January 29, 2025 (Deann) Referring Provider: Dr. Leigh Grajeda Additional Clinicians involved in Kennedy Kong's care: Lesa Estrella, Avel Heath, Klyie Dietrich CC: Follow up for treatment. DIAGNOSIS: High grade muscle invasive bladder cancer CASE SUMMARY / ASSESSMENT: 89 year old man with a history of [...] December 05, 2023, was identified as having htiu-[id number] invasive papillary bladder cancer and has been referred to Radiation oncology and subsequently to me for an opinion regarding chemotherapy. 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 He would likely tolerate low dose weekly cisplatin for radiosensitizing given appropriate supportive therapy. Will Coordinate with Dr. Grajeda. CT done today January 29, 2025 show resolution of lung nodule and no evidence of recurrence. SUMMARIZED PLAN OF CARE: Follow up with Dr. Dietrich as scheduled CT CAP with labs in 6 months RTC 1 week after AI Assisted A/P: 1. 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 Patient has been clear since completing chemotherapy and radiation in January-February of last year. - Continue follow-up with Dr. Dietrich every 3 months. - Extend interval for surveillance scans to every 6 months. 2. 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 Previous concern for a nodule in September of last year led to a PET scan, which showed no concerning findings. - Monitor with follow-up imaging in 6 months. 3. Atherosclerosis of aorta (I70.0) CT scans revealed plaque formation in the aorta, consistent with vascular disease. No aneurysm detected in the abdomen. CASE HISTORY: Reverse Chronological Order 05/14/2025 - CT CAP: Chest: No metastatic disease in the chest. A/P: No metastatic disease in the abdomen or pelvis. 01/29/2025 - CT CAP: Chest: 1. There has been interval resolution of the previously identified 1.1 cm right upper lobe nodule. Additional subcentimeter nodularity adjacent to this region along the right major fissure appears less conspicuous. 2. Additional subcentimeter left-sided pulmonary nodules are unchanged. 3. No substantial intrathoracic adenopathy is identified. A/P: 1. Stable postoperative appearance to the abdomen and pelvis, without evidence for metastatic disease. 2. Circumferential wall thickening involving the distal sigmoid/rectum again the basis of prior radiation therapy, stable in appearance. 3. Wall thickening involving the urinary bladder, more prominent along the right lateral aspect is stable, also likely posttreatment related. 11/23/2024 - Cystoscopy: Dr. Dietrich Findings: Recurrent bulbar urethral stricture No new barrera bladder tumors Erythematous slightly raised mucosa along the back wall and dome Cytology: Urinary bladder washings: Groups of atypical urothelial cells noted Acute inflammation 10/20/2024 - PET/CT: Circumferential bladder wall thickening with perivesical and perirectal fat stranding likely representing postradiation changes. Nonavid right upper and middle lobe lung nodules, recommend follow-up with CT. 09/30/2024 - CT CAP: Chest: New 1.1 cm right upper lobe nodule and 0.6 cm right middle lobe nodule. Consider PET CT to assess the dominant pulmonary nodule, otherwise attention on follow-up is recommended. A/P: No metastatic disease in the abdomen or pelvis. 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 06/29/2024 - Cystoscopy: Dr. Dietrich Indurated thick bulbar urethral stricture No evidence of classic papillary bladder tumors 2 area that are minimally raised and erythematous on the right wall. 1 in the mid right wall and the other in the back right wall. Both of these areas are 1cm or less. 01/20/2024-03/02/2024 - Radiation to bladder 01/20/2024-02/19/2024 - Weekly Cisplatin 20 mg/m2 started with radiation (total dose of Cisplatin was 400mg/m2) 01/08/2024 - CT Chest: Subcentimeter noncalcified and [...] Colon cancer: partial colectomy with colorectal anastomosis HPI: Updated Visit, May 19, 2025: On 02/13/2024, patient was diagnosed with bladder cancer. He completed chemotherapy in January 2024, followed by radiation therapy in February 2024. In September 2024, a lung nodule was identified, prompting a PET scan at the end of September, which showed no concerning findings. Patient has since undergone regular imaging studies, with the most recent CT scans of the chest, abdomen, and pelvis performed on 05/14/2025, showing no evidence of metastatic disease. The chest CT revealed pulmonary nodules, all less than 6 mm in size, consistent with granulomas. Atherosclerosis was also noted, but no abdominal aneurysm was identified. Patient reports a history of good health, aside from chronic back problems and arthritis. 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 He is currently followed by Dr. Dietrich every three months, with the next appointment scheduled in one to two weeks. (05/14) CT Chest, Abdomen, and Pelvis: No evidence of metastatic disease; no sign of bladder cancer. Pulmonary nodules in the left lung measuring up to 5 mm, consistent with granulomas. (September 2024) PET Scan: No concerning findings in the lung. Updated Visit, January 29, 2025: Kennedy returns for a follow up. Cystoscopy completed in 11/2024 - erythematous slightly raised mucosa and no recurrent urethral stricture. Final reading of today's CT CAP is in process. We did review the images together - overall no concerning findings. He has developed erectile dysfunction. Recommended he follow up with urology (Dr. Dietrich) for more specialized care. 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 (Dasia Molina) Updated Visit, October 28, 2024: Kennedy returns for a follow up. Last month's CT CAP showed 2 new right lung nodules, follow up PET revealed the nodules are nonavid. There are postradiation changes in the bladder and no indications of metastatic disease. He has a follow up with Dr. Dietrich in 11/2024. He mentions a significant history of asbestos exposure during his work at [employer]. Updated Visit, July 01, 2024: Kennedy returns today for a follow up. He endorses doing well overall. Cystoscopy earlier this week - will need to obtain records. He endorses bowel incontinence since starting treatment in January. He states bowel movements are improving now since having a urinary catheter removed. He remains slightly anemic - will continue to monitor. Updated Visit, March 25, 2024: Kennedy returns, [...] better after taking Macrobid for UTI. His [id number] is a patient of [facility] - [facility]. Updated Visit, February 12, [...] day. His about 3.5 years ago from [employer]. Updated Visit, February 05, 2024: Kennedy Soriano Widarsh returns for follow-up and continued treatment. Overall [...] negative by full review of organ systems. Musculoskeletal: (-) back pain Endocrine: (+) heat intolerance ECOG PERFORMANCE STATUS: 0 PHYSICAL EXAMINATION: Vitals: BP 136/64 Pulse 68 Temp (Src) 97.1 (Temporal) Resp 16 Ht 5' 10.236 (1.78m) Wt 205 lb 7.5 oz (93.2kg) SpO2 99% BMI 29.28 kg/(m^2). Body surface area is 2.15 meters squared. Exam limited to gross visualization [...] Comments Pt gets sores in mouth MEDICATIONS: furosemide (LASIX) 20 mg tablet Take 20 mg by mouth at bedtime as needed. loratadine (CLARITIN) 10 mg tablet Take 10 mg by mouth. losartan (COZAAR) 25 mg tablet Take 25 mg by mouth once daily. sildenafil (VIAGRA) 50 mg tablet TAKE 1-2 TABLETS BY MOUTH 1 HR BEFORE SEXUAL ACTIVITY. DO NOT EXCEED 2 TABS/24 HRS. enteric contrast (will be provided with radiology test) For CT CHESTABD/PEL W IVCON Routine order Administer, As Directed One Time Only, via Oral, Rectal, both Oral and Rectal, Enteric Tube, Stoma or Indwelling Catheter, Enteric Contrast as designated per enteric contrast guidelines CARROLL CHEWABLE ASPIRIN 81 mg chewable tablet [...] mg cap Take by mouth once daily. iv contrast (will be provided with radiology [...] in the CT contrast administration guidelines link. enteric contrast (will be provided with radiology test) For CT CHESTABD/PEL W IVCON Routine order Administer, As Directed One Time Only, via Oral, Rectal, both Oral and Rectal, Enteric Tube, Stoma or Indwelling Catheter, Enteric Contrast as designated per enteric contrast guidelines iv contrast (will be provided with radiology [...] in the CT contrast administration guidelines link. enteric contrast (will be provided with radiology test) For CT CHESTABD/PEL W IVCON Routine order Administer, As Directed One Time Only, via Oral, Rectal, both Oral and Rectal, Enteric Tube, Stoma or Indwelling Catheter, Enteric Contrast as designated per enteric contrast guidelines iv contrast (will be provided with radiology [...] in the CT contrast administration guidelines link. enteric contrast (will be provided with radiology test) For CT CHESTABD/PEL W IVCON Routine order Administer, As Directed One Time Only, via Oral, Rectal, both Oral and Rectal, Enteric Tube, Stoma or Indwelling Catheter, Enteric Contrast as designated per enteric contrast guidelines iv contrast (will be provided with radiology [...] in the CT contrast administration guidelines link. Catheter ([facility]) misc 1 Device once daily. LABORATORY VALUES: WBC (k/uL) Date Value 05/14/2025 4.55 RBC (m/uL) Date Value 05/14/2025 4.08 (L) Hemoglobin (g/dL) Date Value 05/14/2025 12.5 (L) Hematocrit (%) Date Value 05/14/2025 38.4 (L) MCV (fL) Date Value 05/14/2025 94.1 MCH (pg) Date Value 05/14/2025 30.6 MCHC (g/dL) Date Value 05/14/2025 32.6 RDW-CV (%) Date Value 05/14/2025 12.9 Platelet Count (k/uL) Date Value 05/14/2025 176 MPV (fL) Date Value 05/14/2025 9.0 Glucose (mg/dL) Date Value 05/14/2025 106 (H) BUN (mg/dL) Date Value 05/14/2025 24 Creatinine (mg/dL) Date Value 05/14/2025 0.95 Sodium (mmol/L) Date Value 05/14/2025 142 Potassium (mmol/L) Date Value 05/14/2025 3.9 Chloride (mmol/L) Date Value 05/14/2025 105 CO2 (mmol/L) Date Value 05/14/2025 26 Protein, Total (g/dL) Date Value 05/14/2025 6.8 Albumin (g/dL) Date Value 05/14/2025 4.1 Calcium, Total (mg/dL) Date Value 05/14/2025 9.4 Alkaline Phosphatase (U/L) Date Value 05/14/2025 70 Bilirubin, Total (mg/dL) Date Value 05/14/2025 0.3 AST (U/L) Date Value 05/14/2025 18 ALT (U/L) Date Value 05/14/2025 16 DIAGNOSIS: (C67.8) Malignant neoplasm of overlapping sites of bladder (HCC) (primary encounter diagnosis) Plan: CT ABD/PEL W IVCON, CT CHEST W IVCON, iv contrast (will be provided with radiology test), enteric contrast (will be provided with radiology test), COMPLETE BLOOD COUNT AND DIFFERENTIAL, COMPREHENSIVE METABOLIC PANEL (R91.1) Pulmonary nodule, left (J84.10) 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) Atherosclerosis of aorta (Z85.51) Personal history of malignant neoplasm of bladder (Z90.6) Acquired absence of organ, urinary bladder PAST MEDICAL HISTORY Diagnosis Date Basal cell [...] Never Smokeless tobacco: Never Vaping Use Vaping status: Never Used Substance Use Topics Alcohol use: Yes Comment: beer rarely Drug use: No Comment: declines 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 Eugene Chaparro MD, CPE Hematology and Oncology Services Provided at: [place], [place] CC: Suzanne Estrella documented in this encounter [facility] 05-19-2025 Note HNO ID: [id number] Author: EUGENE CHAPARRO MD Service: ? Author Type: Physician Type: Progress Notes Filed: 05/22/2025 10:08 Note Text: NAME: Kennedy Kong [facility] NO.: [id number] DATE OF SERVICE: May 19, 2025 (Deann) Some elements in this clinic note that are critical to medical decision making have been carefully reviewed and included from a prior clinic note dated: January 29, 2025 (Deann) Referring Provider: Dr. Leigh Grajeda Additional Clinicians involved in Kennedy Kong's care: Avel Crooks Patrick Waters CC: Follow up for treatment. DIAGNOSIS: High grade muscle invasive bladder cancer CASE SUMMARY / ASSESSMENT: 89 year old man with a history of [...] December 05, 2023, was identified as having cpil-mltev-lfrdsr invasive papillary bladder cancer and has been referred to Radiation oncology and subsequently to me for an opinion regarding chemotherapy. 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 He would likely tolerate low dose weekly cisplatin for radiosensitizing given appropriate supportive therapy. Will Coordinate with Dr. Grajeda. CT done today January 29, 2025 show resolution of lung nodule and no evidence of recurrence. SUMMARIZED PLAN OF CARE: Follow up with Dr. Dietrich as scheduled CT CAP with labs in 6 months RTC 1 week after AI Assisted A/P: 1. 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 Patient has been clear since completing chemotherapy and radiation in January-February of last year. - Continue follow-up with Dr. Dietrich every 3 months. - Extend interval for surveillance scans to every 6 months. 2. 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 Previous concern for a nodule in September of last year led to a PET scan, which showed no concerning findings. - Monitor with follow-up imaging in 6 months. 3. Atherosclerosis of aorta (I70.0) CT scans revealed plaque formation in the aorta, consistent with vascular disease. No aneurysm detected in the abdomen. CASE HISTORY: Reverse Chronological Order 05/14/2025 - CT CAP: Chest: No metastatic disease in the chest. A/P: No metastatic disease in the abdomen or pelvis. 01/29/2025 - CT CAP: Chest: 1. There has been interval resolution of the previously identified 1.1 cm right upper lobe nodule. Additional subcentimeter nodularity adjacent to this region along the right major fissure appears less conspicuous. 2. Additional subcentimeter left-sided pulmonary nodules are unchanged. 3. No substantial intrathoracic adenopathy is identified. A/P: 1. Stable postoperative appearance to the abdomen and pelvis, without evidence for metastatic disease. 2. Circumferential wall thickening involving the distal sigmoid/rectum again the basis of prior radiation therapy, stable in appearance. 3. Wall thickening involving the urinary bladder, more prominent along the right lateral aspect is stable, also likely posttreatment related. 11/23/2024 - Cystoscopy: Dr. Dietrich Findings: Recurrent bulbar urethral stricture No new barrera bladder tumors Erythematous slightly raised mucosa along the back wall and dome Cytology: Urinary bladder washings: Groups of atypical urothelial cells noted Acute inflammation 10/20/2024 - PET/CT: Circumferential bladder wall thickening with perivesical and perirectal fat stranding likely representing postradiation changes. Nonavid right upper and middle lobe lung nodules, recommend follow-up with CT. 09/30/2024 - CT CAP: Chest: New 1.1 cm right upper lobe nodule and 0.6 cm right middle lobe nodule. Consider PET CT to assess the dominant pulmonary nodule, otherwise attention on follow-up is recommended. A/P: No metastatic disease in the abdomen or pelvis. 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 Proctitis which could be on the b (more content not included)... [facility] 05-14-2025 History of Present illness Narrative Radiology Service Progress Note DATE OF SERVICE: May 14, 2025 TIME: 8:13 AM PATIENT WEIGHT: 184LBS PATIENT IDENTITY VERIFICATION COMPLETED USING TWO (2) STANDARD IDENTIFIERS: Name and Date of confirmed by patient verbally. FALL SCREENING: Has the patient had 2 falls in the last year or 1 fall with injury or currently using an Ambulatory Assistive Device (Walker, Cane, Wheelchair, Crutches, etc.)? Yes, Patient High Risk for Falls What interventions were put in place to prevent falls during this visit? Offered Assistance with Transfers/Clothing, Instructed Patient to Remain Seated (Not on Exam Table) Until Exam, and Increased Observations by Caregivers PATIENT GENDER DATA: Assigned male at ALLERGIES: Reviewed and unchanged CONTRAST ALLERGY: No EXAM: CT -CONTRAST INDUCED NEPHROPATHY RISK FACTORS: Patient age > 60 years and History of Kidney surgery, Kidney neoplasm, Liver disease, and/or any recent Nephrotoxic Chemotherapy or other Nephrotoxic medications CREATININE: Creatinine Date Value Ref Range Status 05/14/2025 0.95 0.73 - 1.22 mg/dL Final 01/18/2025 1.10 0.73 - 1.22 mg/dL Final 09/30/2024 1.02 0.73 - 1.22 mg/dL Final Estimated Glomerular Filtration Rate Date Value Ref Range Status 05/14/2025 77 >=60 mL/min/1.73m Final Comment: Estimated Glomerular Filtration Rate (eGFR) is calculated using the 2020 CKD-EPI creatinine equation. This equation utilizes serum creatinine, sex, and age as parameters. The creatinine assay has traceable calibration to isotope dilution-mass spectrometry. Refer to KDIGO guidelines for clinical interpretation. In patients with unstable renal function, e.g. those with acute kidney injury, the eGFR may not accurately reflect actual GFR. eGFR- Date Value Ref Range Status 01/23/2012 >60 Final P.O.C.T. RESULTS: POC done: Yes, See Lab Tab May 14, 2025 TREATMENT: N/A IV SITE: Ambulatory: A peripheral IV was started in the Right forearm with a Angio cath: 20 gauge. IV SITE APPEARANCE: Clean,Dry and Intact SIGNATURE: Ewa Trotter RN PATIENT NAME: Kennedy Kong DATE: May 14, 2025 TIME: 8:13 AM Radiology Service Progress Note PATIENT NAME: Kennedy Kong DATE OF SERVICE: May 14, 2025 TIME: 8:38 AM PATIENT IDENTITY VERIFICATION COMPLETED USING TWO (2) IDENTIFIERS: Name and Date of confirmed by patient verbally. FALL SCREENING: Has the patient had 2 falls in the last year or 1 fall with injury or currently using an Ambulatory Assistive Device (Walker, Cane, Wheelchair, Crutches, etc.)? No PATIENT GENDER DATA: Assigned male at PATIENT RELEVANT IMPLANT DATA REVIEWED: Not Applicable PATIENT PRESENTS WITH AN IMPLANTABLE OR ATTACHED PAPER COATING MACHINE OPERATOR: No RADIOLOGY DEPARTMENT: CT; Exam(s) Completed: Chest Abdomen Pelvis PERIPHERAL IV DATA: Site assessment: Clean,Dry and Intact, Site disposition Discontinued SIGNED BY: RT Myron(R) May 14, 2025 8:38 AM documented in this encounter [facility] 05-14-2025 Note HNO ID: [id number] Author: EWA TROTTER RN Service: ? Author Type: Registered Nurse Type: Progress Notes Filed: 05/14/2025 08:13 Note Text: Radiology Service Progress Note DATE OF SERVICE: May 14, 2025 TIME: 8:13 AM PATIENT WEIGHT: 184LBS PATIENT IDENTITY VERIFICATION COMPLETED USING TWO (2) STANDARD IDENTIFIERS: Name and Date of confirmed by patient verbally. FALL SCREENING: Has the patient had 2 falls in the last year or 1 fall with injury or currently using an Ambulatory Assistive Device (Walker, Cane, Wheelchair, Crutches, etc.)? Yes, Patient High Risk for Falls What interventions were put in place to prevent falls during this visit? Offered Assistance with Transfers/Clothing, Instructed Patient to Remain Seated (Not on Exam Table) Until Exam, and Increased Observations by Caregivers PATIENT GENDER DATA: Assigned male at ALLERGIES: Reviewed and unchanged CONTRAST ALLERGY: No EXAM: CT -CONTRAST INDUCED NEPHROPATHY RISK FACTORS: Patient age > 60 years and History of Kidney surgery, Kidney neoplasm, Liver disease, and/or any recent Nephrotoxic Chemotherapy or other Nephrotoxic medications CREATININE: Creatinine Date Value Ref Range Status 05/14/2025 0.95 0.73 - 1.22 mg/dL Final 01/18/2025 1.10 0.73 - 1.22 mg/dL Final 09/30/2024 1.02 0.73 - 1.22 mg/dL Final Estimated Glomerular Filtration Rate Date Value Ref Range Status 05/14/2025 77 >=60 mL/min/1.73m? Final Comment: Estimated Glomerular Filtration Rate (eGFR) is calculated using the 2020 CKD-EPI creatinine equation. This equation utilizes serum creatinine, sex, and age as parameters. The creatinine assay has traceable calibration to isotope dilution-mass spectrometry. Refer to KDIGO guidelines for clinical interpretation. In patients with unstable renal function, e.g. those with acute kidney injury, the eGFR may not accurately reflect actual GFR. eGFR- Date Value Ref Range Status 01/23/2012 >60 Final P.O.C.T. RESULTS: POC done: Yes, See Lab Tab May 14, 2025 TREATMENT: N/A IV SITE: Ambulatory: A peripheral IV was started in the Right forearm with a Angio cath: 20 gauge. IV SITE APPEARANCE: Clean,Dry and Intact SIGNATURE: Ewa Trotter RN PATIENT NAME: Kennedy Kong DATE: May 14, 2025 TIME: 8:13 AM [facility] 05-14-2025 Note HNO ID: [id number] Author: SHERRON RASMUSSEN RT(R) Service: ? Author Type: Technologist Type: Progress Notes Filed: 05/14/2025 08:39 Note Text: Radiology Service Progress Note PATIENT NAME: Kennedy Kong DATE OF SERVICE: May 14, 2025 TIME: 8:38 AM PATIENT IDENTITY VERIFICATION COMPLETED USING TWO (2) IDENTIFIERS: Name and Date of confirmed by patient verbally. FALL SCREENING: Has the patient had 2 falls in the last year or 1 fall with injury or currently using an Ambulatory Assistive Device (Walker, Cane, Wheelchair, Crutches, etc.)? No PATIENT GENDER DATA: Assigned male at PATIENT RELEVANT IMPLANT DATA REVIEWED: Not Applicable PATIENT PRESENTS WITH AN IMPLANTABLE OR ATTACHED PAPER COATING MACHINE OPERATOR: No RADIOLOGY DEPARTMENT: CT; Exam(s) Completed: Chest Abdomen Pelvis PERIPHERAL IV DATA: Site assessment: Clean,Dry and Intact, Site disposition Discontinued SIGNED BY: RT Myron(R) May 14, 2025 8:38 AM [facility] 04-02-2025 Hospital Discharge instructions Patient Education 04/02/2025 10:11:24 Erectile Dysfunction Erectile Dysfunction Erectile dysfunction (ED) is the inability to get or keep an erection in order to have sexual intercourse. ED is considered a symptom of an underlying disorder and is not considered a disease. ED may include: Inability to get an erection. Lack of enough hardness of the erection to allow penetration. Loss of erection before sex is finished. What are the causes? This condition may be caused by: Physical causes, such as: ?Artery problems. This may include heart disease, high blood pressure, atherosclerosis, and diabetes. ?Hormonal problems, such as low testosterone. ?Obesity. ?Nerve problems. This may include back or pelvic injuries, multiple sclerosis, Parkinson's disease, spinal cord injury, and stroke. Certain medicines, such as: ?Pain relievers. ?Antidepressants. ?Blood pressure medicines and water pills (diuretics). ?Cancer medicines. ?Antihistamines. ?Muscle relaxants. Lifestyle factors, such as: ?Use of drugs such as marijuana, cocaine, or opioids. ?Excessive use of alcohol. ?Smoking. ?Lack of physical activity or exercise. Psychological causes, such as: ?Anxiety or stress. ?Sadness or depression. ?Exhaustion. ?Fear about sexual performance. ?Guilt. What are the signs or symptoms? Symptoms of this condition include: Inability to get an erection. Lack of enough hardness of the erection to allow penetration. Loss of the erection before sex is finished. Sometimes having normal erections, but with frequent unsatisfactory episodes. Low sexual satisfaction in either partner due to erection problems. A curved penis occurring with erection. The curve may cause pain, or the penis may be too curved to allow for intercourse. Never having nighttime or morning erections. How is this diagnosed? This condition is often diagnosed by: Performing a physical exam to find other diseases or specific problems with the penis. Asking you detailed questions about the problem. Doing tests, such as: ?Blood tests to check for diabetes mellitus or high cholesterol, or to measure hormone levels. ?Other tests to check for underlying health conditions. ?An ultrasound exam to check for scarring. ?A test to check blood flow to the penis. Doing a sleep study at home to measure nighttime erections. How is this treated? This condition may be treated by: Medicines, such as: ?Medicine taken by mouth to help you achieve an erection (oral medicine). ?Hormone replacement therapy to replace low testosterone levels. ?Medicine that is injected into the penis. Your health care provider may instruct you how to give yourself these injections at home. ?Medicine that is delivered with a short applicator tube. The tube is inserted into the opening at the tip of the penis, which is the opening of the urethra. A tiny pellet of medicine is put in the urethra. The pellet dissolves and enhances erectile function. This is also called MUSE (medicated urethral system for erections) therapy. Vacuum pump. This is a pump with a ring on it. The pump and ring are placed on the penis and used to create pressure that helps the penis become erect. Penile implant surgery. In this procedure, you may receive: ?An inflatable implant. This consists of cylinders, a pump, and a reservoir. The cylinders can be inflated with a fluid that helps to create an erection, and they can be deflated after intercourse. ?A semi-rigid implant. This consists of two silicone rubber rods. The rods provide some rigidity. They are also flexible, so the penis can both curve downward in its normal position and become straight for sexual intercourse. Blood vessel surgery to improve blood flow to the penis. During this procedure, a blood vessel from a different part of the body is placed into the penis to allow blood to flow around (bypass) damaged or blocked blood vessels. Lifestyle changes, such as exercising more, losing weight, and quitting smoking. Follow these instructions at home: Medicines Take auco-bop-swgjumx and prescription medicines only as told by your health care provider. Do not increase the dosage without first discussing it with your health care provider. If you are using self-injections, do injections as directed by your health care provider. Make sure you avoid any veins that are on the surface of the penis. After giving an injection, apply pressure to the injection site for 5 minutes. Talk to your health care provider about how to prevent headaches while taking ED medicines. These medicines may cause a sudden headache due to the increase in blood flow in your body. General instructions Exercise regularly, as directed by your health care provider. Work with your health care provider to lose weight, if needed. Do not use any products that contain nicotine or tobacco. These products include cigarettes, chewing tobacco, and vaping devices, such as e-cigarettes. If you need help quitting, ask your health care provider. Before using a vacuum pump, read the instructions that come with the pump and discuss any questions with your health care provider. Keep all follow-up visits. This is important. Contact a health care provider if: You feel nauseous. You are vomiting. You get sudden headaches while taking ED medicines. You have any concerns about your sexual health. Get help right away if: You are taking oral or injectable medicines and you have an erection that lasts longer than 4 hours. If your health care provider is unavailable, go to the nearest emergency room for evaluation. An erection that lasts much longer than 4 hours can result in permanent damage to your penis. You have severe pain in your groin or abdomen. You develop redness or severe swelling of your penis. You have redness spreading at your groin or lower abdomen. You are unable to urinate. You experience chest pain or a rapid heartbeat (palpitations) after taking oral medicines. These symptoms may represent a serious problem that is an emergency. Do not wait to see if the symptoms will go away. Get medical help right away. Call your local emergency services (911 in the [place] Do not drive yourself to the hospital. Summary Erectile dysfunction (ED) is the inability to get or keep an erection during sexual intercourse. This condition is diagnosed based on a physical exam, your symptoms, and tests to determine the cause. Treatment varies depending on the cause and may include medicines, hormone therapy, surgery, or a vacuum pump. You may need follow-up visits to make sure that you are using your medicines or devices correctly. Get help right away if you are taking or injecting medicines and you have an erection that lasts longer than 4 hours. This information is not intended to replace advice given to you by your health care provider. Make sure you discuss any questions you have with your health care provider. Document Revised: 01/03/2022 Document Reviewed: 01/03/2022 [employer] Patient Education 2023 [email or web address]. Follow Up Care 04/01/2025 09:18:46 With:[facility] Address: When: Unknown Comments:For procedure as scheduled. [facility] 04-02-2025 Note Patient Education Urology Erectile Dysfunction Erectile dysfunction (ED) is the inability to get or keep an erection in order to have sexual intercourse. ED is considered a symptom of an underlying disorder and is not considered a disease. ED may include: ??? Inability to get an erection. ??? Lack of enough hardness of the erection to allow penetration. ??? Loss of erection before sex is finished. What are the causes? This condition may be caused by: ??? Physical causes, such as: ? Artery problems. This may include heart disease, high blood pressure, atherosclerosis, and diabetes. ? Hormonal problems, such as low testosterone. ? Obesity. ? Nerve problems. This may include back or pelvic injuries, multiple sclerosis, Parkinson's disease, spinal cord injury, and stroke. ??? Certain medicines, such as: ? Pain relievers. ? Antidepressants. ? Blood pressure medicines and water pills (diuretics). ? Cancer medicines. ? Antihistamines. ? Muscle relaxants. ??? Lifestyle factors, such as: ? Use of drugs such as marijuana, cocaine, or opioids. ? Excessive use of alcohol. ? Smoking. ? Lack of physical activity or exercise. ??? Psychological causes, such as: ? Anxiety or stress. ? Sadness or depression. ? Exhaustion. ? Fear about sexual performance. ? Guilt. What are the signs or symptoms? Symptoms of this condition include: ??? Inability to get an erection. ??? Lack of enough hardness of the erection to allow penetration. ??? Loss of the erection before sex is finished. ??? Sometimes having normal erections, but with frequent unsatisfactory episodes. ??? Low sexual satisfaction in either partner due to erection problems. ??? A curved penis occurring with erection. The curve may cause pain, or the penis may be too curved to allow for intercourse. ??? Never having nighttime or morning erections. How is this diagnosed? This condition is often diagnosed by: ??? Performing a physical exam to find other diseases or specific problems with the penis. ??? Asking you detailed questions about the problem. ??? Doing tests, such as: ? Blood tests to check for diabetes mellitus or high cholesterol, or to measure hormone levels. ? Other tests to check for underlying health conditions. ? An ultrasound exam to check for scarring. ? A test to check blood flow to the penis. ??? Doing a sleep study at home to measure nighttime erections. How is this treated? This condition may be treated by: ??? Medicines, such as: ? Medicine taken by mouth to help you achieve an erection (oral medicine). ? Hormone replacement therapy to replace low testosterone levels. ? Medicine that is injected into the penis. Your health care provider may instruct you how to give yourself these injections at home. ? Medicine that is delivered with a short applicator tube. The tube is inserted into the opening at the tip of the penis, which is the opening of the urethra. A tiny pellet of medicine is put in the urethra. The pellet dissolves and enhances erectile function. This is also called MUSE (medicated urethral system for erections) therapy. ??? Vacuum pump. This is a pump with a ring on it. The pump and ring are placed on the penis and used to create pressure that helps the penis become erect. ??? Penile implant surgery. In this procedure, you may receive: ? An inflatable implant. This consists of cylinders, a pump, and a reservoir. The cylinders can be inflated with a fluid that helps to create an erection, and they can be deflated after intercourse. ? A semi-rigid implant. This consists of two silicone rubber rods. The rods provide some rigidity. They are also flexible, so the penis can both curve downward in its normal position and become straight for sexual intercourse. ??? Blood vessel surgery to improve blood flow to the penis. During this procedure, a blood vessel from a different part of the body is placed into the penis to allow blood to flow around (bypass) damaged or blocked blood vessels. ??? Lifestyle changes, such as exercising more, losing weight, and quitting smoking. Follow these instructions at home: Medicines ??? Take spqz-wqy-wkubwrt and prescription medicines only as told by your health care provider. Do not increase the dosage without first discussing it with your health care provider. ??? If you are using self-injections, do injections as directed by your health care provider. Make sure you avoid any veins that are on the surface of the penis. After giving an injection, apply pressure to the injection site for 5 minutes. ??? Talk to your health care provider about how to prevent headaches while taking ED medicines. These medicines may cause a sudden headache due to the increase in blood flow in your body. General instructions ??? Exercise regularly, as directed by your health care provider. Work with your health care provider to lose weight, if needed. ??? Do not u (more content not included)... [facility] 03-31-2025 History of Present illness Narrative Chief Complaint Seem to be doing better Reason for Visit 2-week follow-up Patient presents to the office today for outpatient follow-up for edema and medication change. Last evaluated in clinic by myself 2 weeks ago. At that time he presented with complaints of unilateral edema, ultrasound left lower extremity no evidence of DVT. He was provided with a short course of Lasix 20 mg. Due to erectile dysfunction also discontinue carvedilol. Presents today ambulatory with steady gait. Accompanied by patient Patient denies any hospitalizations or significant changes to interval medical history since last office follow-up. History of Present Illness Patient is an absolutely delightful 89-year-old gentleman who presents to the office today reporting Lasix for 3 days resolve the left lower extremity edema, he is now using it maybe every third day to keep things under control . Weight is down 5 pounds. 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 He denies any exertional chest pain or dyspnea on exertion. No utilization of nitroglycerin. He did report that he had leg swelling prior to my heart attack ; discussed that if he is concerned we could do stress testing but he politely declines but will keep an eye on things . Patient reports that overall has no complaint(s) of chest pain, chest pressure/discomfort, claudication, dyspnea, exertional chest pressure/discomfort, fatigue, irregular heart beat, lower extremity edema, and near-syncope Daily activity: > 4 METs Denies any change in exercise capacity or functional tolerance since last office visit. Blood pressure and heart rate are optimal off of carvedilol. Discussed availability of Cialis or Viagra if needed. He also follows regularly with urology. Review of Systems Cardiovascular: Negative for chest pain, dyspnea on exertion, irregular heartbeat, leg swelling, near-syncope, orthopnea, palpitations, paroxysmal nocturnal dyspnea and syncope. Visit Vitals BP 120/70 (BP Location: Left arm, Patient Position: Sitting) Pulse 68 Ht 1.778 m (5' 10 ) Wt 84.4 kg (186 lb) BMI 26.69 kg/m Smoking Status Never BSA 2.04 m Physical Exam Vitals and nursing note reviewed. Constitutional: Appearance: Normal appearance. Cardiovascular: Rate and Rhythm: Normal rate and regular rhythm. Heart sounds: Normal heart sounds. Comments: Trace left ankle edema Pulmonary: Effort: Pulmonary effort is normal. Breath sounds: Normal breath sounds. Musculoskeletal: Cervical back: Full passive range of motion without pain. Right lower leg: No edema. Left lower leg: No edema. Skin: General: Skin is cool. Neurological: Mental Status: He is alert and oriented to person, place, and time. Psychiatric: Attention and Perception: Attention normal. Mood and Affect: Mood normal. Behavior: Behavior is cooperative. ALLERGIES: Patient has no known allergies. Current Outpatient Medications Medication Instructions acetaminophen (TYLENOL 8 HOUR) 650 mg, Every 8 hours PRN aspirin 81 mg, Daily furosemide (LASIX) 20 mg, oral, Daily PRN loratadine (CLARITIN) 10 mg, Daily losartan (COZAAR) 25 mg, Daily rosuvastatin (CRESTOR) 40 mg, Daily tamsulosin (FLOMAX) 0.4 mg, Daily Assessment: Patient was seen 2 weeks ago for earlier office follow-up due to unilateral left lower extremity edema. No evidence of DVT. Resolved with short course of Lasix. 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 No residual disease. Mild ischemic cardiomyopathy LVEF 45% at time of April 2023 NSTEMI -with normalization of LVEF June 2023 TTE LVEF 60 to 65%. No significant structural heart disease. He has no history of dysrhythmias. Regular rate and rhythm in the office today. Unilateral lower extremity edema resolved Plan: Through informed decision making process incorporating patients unique circumstances, the following treatment plan will be initiated: 1. Prescription drug management of cardiovascular medication for efficacy, adherence to treatment, side effect assessment and polypharmacy. Current treatment clinically warranted and to continue without modifications. 2. Return for follow-up; in the interim, contact the office if new symptoms arise. Dr. Morgan 6 months Theodora Love MSN, [employer] MANAGEMENT CLERK, PMHNP-[facility] [place], [place] Please excuse any errors in grammar or translation related to this dictation. Voice recognition software was utilized to prepare this document. documented in this encounter [facility] Work Phone: 03-31-2025 Instructions SAVANNA Coleman - 03/31/2025 8:30 AM EDT Please bring all medicines, vitamins, and herbal supplements with you when you come to the office. Prescriptions will not be filled unless you are compliant with your follow up appointments or have a follow up appointment scheduled as per instruction of your physician. Refills should be requested at the time of your visit. PLAN: Through informed decision making process incorporating patients unique circumstances, the following treatment plan will be initiated: 1. Prescription drug management of cardiovascular medication for efficacy, adherence to treatment, side effect assessment and polypharmacy. Current treatment clinically warranted and to continue without modifications. 2. Return for follow-up; in the interim, contact the office if new symptoms arise. Dr. Morgan 6 months documented in this encounter [facility] Work Phone: 03-19-2025 Hospital Discharge instructions Patient Education 03/19/2025 13:55:38 Bladder Cancer Bladder Cancer Bladder cancer is a condition [...] you more likely to develop this condition: Smoking. Working where there are risks (occupational exposures), such as working with rubber, leather, clothing fabric, dyes, chemicals, or paint. Being 55 years of age or older. Being male. Having long-term bladder inflammation. Having a history of cancer. This includes: ?A family history of bladder cancer. ?Having had bladder cancer before. ?Having had certain treatments for cancer before, such as: ?Medicines to kill cancer cells (chemotherapy). ?Strong X-ray beams or high-energy capsules to kill cancer cells and shrink tumors (radiation therapy). Having been exposed to arsenic. This is a poisonous substance. What are the signs or symptoms? Early symptoms of this condition include: Blood in your urine. Pain when urinating. Infections of your urinary system (urinary tract infections or UTIs) that happen often. Having to urinate sooner or more often than normal. Late symptoms of this condition include: Not being able to urinate. Pain on one side of your lower back. Loss of appetite. Weight loss. Tiredness (fatigue). Swelling in your feet. Bone pain. How is this diagnosed? This condition is diagnosed based on: Your medical history. A physical exam. Lab tests, such as urine tests. Imaging tests. Your symptoms. You may also have other tests or procedures, such as: A cystoscopy. This involves putting a narrow tube into your urethra. The urethra is the organ that carries urine from your bladder to the outside of your body. This procedure is done to view the lining of your bladder for tumors. A biopsy. This involves removing a tissue sample to look at under a microscope to check for cancer. Blood tests or imaging tests may be needed. These show how far into the bladder wall cancer has grown, and if cancer has spread to any other parts of your body. Tests may include: CT scan. MRI. Bone scan. X-ray. How is this treated? Your health care provider may recommend one or more types of treatment based on the stage of your cancer. The most common treatments are: Surgery to remove the cancer. Types of surgeries include: ?Removing a tumor on the inside wall of the bladder (transurethral resection). ?Removing the bladder (cystectomy). Radiation therapy. This is often combined with chemotherapy. Chemotherapy. Immunotherapy. This uses medicines to help your body's disease-fighting system (immune system) destroy cancer cells. Follow these instructions at home: Take elnl-iob-yqbmiwn and prescription medicines only as told by your health care provider. If you were prescribed an antibiotic medicine, take it as told by your health care provider. Do not stop using the antibiotic even if you start to feel better. Eat a healthy diet. Some treatments might affect your appetite. Do not use any products that contain nicotine or tobacco. These products include cigarettes, chewing tobacco, and vaping devices, such as e-cigarettes. If you need help quitting, ask your health care provider. Consider joining a support group. This may help you learn to deal with the stress of having bladder cancer. Tell your cancer care team if you develop side effects. Your team may be able to recommend ways to get relief. Keep all follow-up visits. This is important. Where to find more information [place] [employer] (ACS): cancer.org National Cancer [place] (NCI): cancer.gov Contact a health care provider if: You have symptoms of a UTI. These include: ?Fever. ?Chills. ?Weakness. ?Muscle aches. ?Pain in your abdomen. ?Urge to urinate that is stronger and happens more often than normal. ?Burning in the bladder or urethra when you urinate. Get help right away if: There is blood in your urine. You cannot urinate. You have severe pain or other symptoms that do not go away. Summary Bladder cancer is a condition where tumors grow in the bladder. Diagnosis is based on your medical history, a physical exam, lab tests, imaging tests, and your symptoms. Your health care provider may recommend one or more types of treatment based on the stage of your cancer. Consider joining a support group. This may help you learn to deal with the stress of having bladder cancer. This information is not intended to replace advice given to you by your health care provider. Make sure you discuss any questions you have with your health care provider. Document Revised: 09/17/2022 Document Reviewed: 09/17/2022 [employer] Patient Education 2023 [email or web address]. Follow Up Care 03/09/2025 15:01:58 With:[facility] Address: When: Unknown Comments:For procedure as scheduled. [facility] 03-19-2025 Note Patient Education Oncology Bladder Cancer Bladder cancer [...] you more likely to develop this condition: ??? Smoking. ??? Working where there are risks (occupational exposures), such as working with rubber, leather, clothing fabric, dyes, chemicals, or paint. ??? Being 55 years of age or older. ??? Being male. ??? Having long-term bladder inflammation. ??? Having a history of cancer. This includes: ? A family history of bladder cancer. ? Having had bladder cancer before. ? Having had certain treatments for cancer before, such as: ? Medicines to kill cancer cells (chemotherapy). ? Strong X-ray beams or high-energy capsules to kill cancer cells and shrink tumors (radiation therapy). ??? Having been exposed to arsenic. This is a poisonous substance. What are the signs or symptoms? Early symptoms of this condition include: ??? Blood in your urine. ??? Pain when urinating. ??? Infections of your urinary system (urinary tract infections or UTIs) that happen often. ??? Having to urinate sooner or more often than normal. Late symptoms of this condition include: ??? Not being able to urinate. ??? Pain on one side of your lower back. ??? Loss of appetite. ??? Weight loss. ??? Tiredness (fatigue). ??? Swelling in your feet. ??? Bone pain. How is this diagnosed? This condition is diagnosed based on: ??? Your medical history. ??? A physical exam. ??? Lab tests, such as urine tests. ??? Imaging tests. ??? Your symptoms. You may also have other tests or procedures, such as: ??? A cystoscopy. This involves putting a narrow tube into your urethra. The urethra is the organ that carries urine from your bladder to the outside of your body. This procedure is done to view the lining of your bladder for tumors. ??? A biopsy. This involves removing a tissue sample to look at under a microscope to check for cancer. Blood tests or imaging tests may be needed. These show how far into the bladder wall cancer has grown, and if cancer has spread to any other parts of your body. Tests may include: ??? CT scan. ??? MRI. ??? Bone scan. ??? X-ray. How is this treated? Your health care provider may recommend one or more types of treatment based on the stage of your cancer. The most common treatments are: ??? Surgery to remove the cancer. Types of surgeries include: ? Removing a tumor on the inside wall of the bladder (transurethral resection). ? Removing the bladder (cystectomy). ??? Radiation therapy. This is often combined with chemotherapy. ??? Chemotherapy. ??? Immunotherapy. This uses medicines to help your body's disease-fighting system (immune system) destroy cancer cells. Follow these instructions at home: ??? Take qcfe-qbs-jphubmo and prescription medicines only as told by your health care provider. ??? If you were prescribed an antibiotic medicine, take it as told by your health care provider. Do not stop using the antibiotic even if you start to feel better. ??? Eat a healthy diet. Some treatments might affect your appetite. ??? Do not use any products that contain nicotine or tobacco. These products include cigarettes, chewing tobacco, and vaping devices, such as e-cigarettes. If you need help quitting, ask your health care provider. ??? Consider joining a support group. This may help you learn to deal with the stress of having bladder cancer. ??? Tell your cancer care team if you develop side effects. Your team may be able to recommend ways to get relief. ??? Keep all follow-up visits. This is important. Where to find more information ??? [place] [employer] (ACS): cancer.org ??? National Cancer [place] (NCI): cancer.gov Contact a health care provider if: ??? You have symptoms of a UTI. These include: ? Fever. ? Chills. ? Weakness. ? Muscle aches. ? Pain in your abdomen. ? Urge to urinate that is stronger and happens more often than normal. ? Burning in the bladder or urethra when you urinate. Get help right away if: ??? There is blood in your urine. ??? You cannot urinate. ??? You have severe pain or other symptoms that do not go away. Summary ??? Bladder cancer is a condition where tumors grow in the bladder. ??? Diagnosis is based on your medical history, a physical exam, lab tests, imaging tests, and your symptoms. ??? Your health care provider may recommend one or more types of treatment based on the stage of your cancer. ??? Consider joining a support group. This may help you learn to deal with the stress of having bladder cancer. This information is n (more content not included)... [facility] 03-17-2025 Radiology Diagnostic study note [facility] Main [place] [address] [place], [place] [id number] Ultrasound Report Signed Patient: Kennedy Kong MR#: [id number] : 1935 Acct:[id number] Age/Sex: 89 / M ADM Date: Loc: Room: [facility] Attending Dr: Theodora Love APRN Ordering Provider: Theodora Love APRN Date of Service: 03/16/25 US/US venous duplex LE LT: LLE EDEMA Copies to: Theodora Love APRN~ LEFT LOWER EXTREMITY VENOUS DUPLEX INDICATION: Swollen left leg Unilateral left lower extremity venous duplex Doppler study was obtained utilizing B-mode, color-flow and spectral Doppler. FINDINGS: The left common femoral, femoral, and popliteal veins showed adequatecompressibility, color-flow and augmentation. The left posterior tibial and peroneal veins were compressible, as well as proximal greater saphenous vein. The contralateral right common femoral vein was compressible with color-flow andaugmentation. US/US venous duplex LE LT IMPRESSION: NO EVIDENCE OF DEEP VENOUS THROMBOSIS IN THE LEFT LOWER EXTREMITY. NO SUPERFICIAL THROMBOPHLEBITIS WAS NOTED. Impression dictated by: Randal Smith M.D. 03/17/2025 10:29 AM Dictation Location: [place] [address] Tech: Sandee Womack Transcribed By: LIZ 03/17/25 1029 Dictated By: Randal Smith MD 03/17/25 1028 Signed By: 03/17/25 1029 [facility] Work Phone: 03-16-2025 History of Present illness Narrative Chief Complaint Reason for Visit Patient presents to the office today for outpatient follow-up for Last evaluated in clinic by Presents today ambulatory with steady gait. Accompanied by patient Patient denies any hospitalizations or significant changes to interval medical history since last office follow-up. History of Present Illness Patient reports that overall has no complaint(s) of chest pain, chest pressure/discomfort, claudication, dyspnea, exertional chest pressure/discomfort, and near-syncope Daily activity: > 4 METs Denies any change in exercise capacity or functional tolerance since last office visit. The importance of secondary prevention reviewed: HTN: HLD: DM: Smoker: BMI: Reviewed the merits of healthy lifestyle choices on overall cardiovascular health. Review of Systems Cardiovascular: Positive for leg swelling. Negative for chest pain, dyspnea on exertion, irregular heartbeat, near-syncope, orthopnea, palpitations, paroxysmal nocturnal dyspnea and syncope. Visit Vitals BP 120/60 (BP Location: Right arm, Patient Position: Sitting) Pulse 72 Ht 1.778 m (5' 10 ) Wt 86.6 kg (191 lb) BMI 27.41 kg/m Smoking Status Never BSA 2.07 m Physical Exam Constitutional: Appearance: Normal appearance. Cardiovascular: Rate and Rhythm: Normal rate and regular rhythm. Pulmonary: Effort: Pulmonary effort is normal. Breath sounds: Normal breath sounds. Abdominal: Palpations: Abdomen is soft. Musculoskeletal: Right lower leg: No edema. Left lower le+ Edema present. Skin: General: Skin is warm and dry. Neurological: Mental Status: He is alert and oriented to person, place, and time. Psychiatric: Attention and Perception: Attention normal. Mood and Affect: Mood normal. ALLERGIES: Patient has no known allergies. Current Outpatient Medications Medication Instructions acetaminophen (TYLENOL 8 HOUR) 650 mg, Every 8 hours PRN aspirin 81 mg, Daily furosemide (LASIX) 20 mg, oral, Daily PRN loratadine (CLARITIN) 10 mg, Daily losartan (COZAAR) 25 mg, Daily rifAXIMin (XIFAXAN) 550 mg, 3 times daily rosuvastatin (CRESTOR) 40 mg, Daily tamsulosin (FLOMAX) 0.4 mg, Daily Assessment: Plan: Theodora Love MSN, [employer] MANAGEMENT CLERK, PMHNP-[facility] [place], [place] Please excuse any errors in grammar or translation related to this dictation. Voice recognition software was utilized to prepare this document. documented in this encounter [facility] Work Phone: 03-16-2025 Instructions SAVANNA Coleman - 03/16/2025 1:30 PM EDT Please bring all medicines, vitamins, and herbal supplements with you when you come to the office. Prescriptions will not be filled unless you are compliant with your follow up appointments or have a follow up appointment scheduled as per instruction of your physician. Refills should be requested at the time of your visit. PLAN: Through informed decision making process incorporating patients unique circumstances, the following treatment plan will be initiated: 1. Prescription drug management of cardiovascular medication for efficacy, adherence to treatment, side effect assessment and polypharmacy. Current treatment clinically warranted and to continue with following modifications: - Lasix 20mg daily for next 3 days and see if helps with edema - Stop coreg 2. LLE USN r/o DVT 3. Return for follow-up; in the interim, contact the office if new symptoms arise. 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 Eugene Chaparro MD P [facility] Triage Pool [place] - scans were clear! o Chest: ? 1. There has been interval resolution of the previously identified 1.1 cm right upper lobe nodule. Additional subcentimeter nodularity adjacent to this region along the right major fissure appears less conspicuous. ? 2. Additional subcentimeter left-sided pulmonary nodules are unchanged. ? 3. No substantial intrathoracic adenopathy is identified. o A/P: ? 1. Stable postoperative appearance to the abdomen and pelvis, without evidence for metastatic disease. ? 2. Circumferential wall thickening involving the distal sigmoid/rectum again the basis of prior radiation therapy, stable in appearance. ? 3. Wall thickening involving the urinary bladder, more prominent along the right lateral aspect is stable, also likely posttreatment related. left with above message of clear scans. Encouraged to call with any questions/concerns. Joanie Caraballo RN [facility] 01-29-2025 Miscellaneous Notes Images from the original note were not included. Eugene Chaparro MD P [facility] Triage Pool [place] - scans were clear! o Chest: ? 1. There has been interval resolution of the previously identified 1.1 cm right upper lobe nodule. Additional subcentimeter nodularity adjacent to this region along the right major fissure appears less conspicuous. ? 2. Additional subcentimeter left-sided pulmonary nodules are unchanged. ? 3. No substantial intrathoracic adenopathy is identified. o A/P: ? 1. Stable postoperative appearance to the abdomen and pelvis, without evidence for metastatic disease. ? 2. Circumferential wall thickening involving the distal sigmoid/rectum again the basis of prior radiation therapy, stable in appearance. ? 3. Wall thickening involving the urinary bladder, more prominent along the right lateral aspect is stable, also likely posttreatment related. Vm left with above message of clear scans. Encouraged to call with any questions/concerns. Joanie Caraballo RN Please call patient with today's ct scans. Thank you documented in this encounter [facility] 01-29-2025 Telephone encounter Note Please call patient with today's ct scans. Thank you [facility] 01-29-2025 Instructions Bianca Odonnell - 01/29/2025 9:10 AM EDT Triage to call with results of today's CT Follow up with Dr. Dietrich as scheduled CT CAP with labs in 3 months RTC 1 week after documented in this encounter [facility] 01-29-2025 History of Present illness Narrative Images from the original note were not included. NAME: Kennedy Kong [facility] NO.: [id number] DATE OF SERVICE: January 29, 2025 (Deann) Some elements in this clinic note that are critical to medical decision making have been carefully reviewed and included from a prior clinic note dated: October 28, 2024 (Deann) Referring Provider: Dr. Leigh Grajeda Additional Clinicians involved in Kennedy Kong's care: Lesa Estrella, Avel Heath, Kylie Dietrich CC: Follow up for treatment. DIAGNOSIS: High grade muscle invasive bladder cancer ASSESSMENT: 89 year old man with a history of [...] December 05, 2023, was identified as having xiwy-nqzhe-rfxwix invasive papillary bladder cancer and has been referred to Radiation oncology and subsequently to me for an opinion regarding chemotherapy. 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 He would likely tolerate low dose weekly cisplatin for radiosensitizing given appropriate supportive therapy. Will Coordinate with Dr. Grajeda. CT done today January 29, 2025 show resolution of lung nodule and no evidence of recurrence. PLAN: Triage to call with results of today's CT Follow up with Dr. Dietrich as scheduled CT CAP with labs in 3 months RTC 1 week after HPI: CASE HISTORY: Reverse Chronological Order 01/29/2025 - CT CAP: Final reading in process Chest: 1. There has been interval resolution of the previously identified 1.1 cm right upper lobe nodule. Additional subcentimeter nodularity adjacent to this region along the right major fissure appears less conspicuous. 2. Additional subcentimeter left-sided pulmonary nodules are unchanged. 3. No substantial intrathoracic adenopathy is identified. A/P: 1. Stable postoperative appearance to the abdomen and pelvis, without evidence for metastatic disease. 2. Circumferential wall thickening involving the distal sigmoid/rectum again the basis of prior radiation therapy, stable in appearance. 3. Wall thickening involving the urinary bladder, more prominent along the right lateral aspect is stable, also likely posttreatment related. 11/23/2024 - Cystoscopy: Dr. Dietrich Findings: Recurrent bulbar urethral stricture No new barrera bladder tumors Erythematous slightly raised mucosa along the back wall and dome Cytology: Urinary bladder washings: Groups of atypical urothelial cells noted Acute inflammation 10/20/2024 - PET/CT: Circumferential bladder wall thickening with perivesical and perirectal fat stranding likely representing postradiation changes. Nonavid right upper and middle lobe lung nodules, recommend follow-up with CT. 09/30/2024 - CT CAP: Chest: New 1.1 cm right upper lobe nodule and 0.6 cm right middle lobe nodule. Consider PET CT to assess the dominant pulmonary nodule, otherwise attention on follow-up is recommended. A/P: No metastatic disease in the abdomen or pelvis. 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 06/29/2024 - Cystoscopy: Dr. Dietrich Indurated thick bulbar urethral stricture No evidence of classic papillary bladder tumors 2 area that are minimally raised and erythematous on the right wall. 1 in the mid right wall and the other in the back right wall. Both of these areas are 1cm or less. 01/20/2024-03/02/2024 - Radiation to bladder 01/20/2024-02/19/2024 - Weekly Cisplatin 20 mg/m2 started with radiation (total dose of Cisplatin was 400mg/m2) 01/08/2024 - CT Chest: Subcentimeter noncalcified and [...] colectomy with colorectal anastomosis Updated Visit, January 29, 2025: Kennedy returns for a follow up. Cystoscopy completed in 11/2024 - erythematous slightly raised mucosa and no recurrent urethral stricture. Final reading of today's CT CAP is in process. We did review the images together - overall no concerning findings. He has developed erectile dysfunction. Recommended he follow up with urology (Dr. Dietrich) for more specialized care. 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 (Dasia Molina) Updated Visit, October 28, 2024: Kennedy returns for a follow up. Last month's CT CAP showed 2 new right lung nodules, follow up PET revealed the nodules are nonavid. There are postradiation changes in the bladder and no indications of metastatic disease. He has a follow up with Dr. Dietrich in 11/2024. He mentions a significant history of asbestos exposure during his work at [employer]. Updated Visit, July 01, 2024: Kennedy returns today for a follow up. He endorses doing well overall. Cystoscopy earlier this week - will need to obtain records. He endorses bowel incontinence since starting treatment in January. He states bowel movements are improving now since having a urinary catheter removed. He remains slightly anemic - will continue to monitor. Updated Visit, March 25, 2024: Kennedy returns, [...] better after taking Macrobid for UTI. His plttlwq-gj-byo is a patient of [facility]. Updated Visit, February 12, [...] day. His about 3.5 years ago from [employer]. Updated Visit, February 05, 2024: Kennedy Kong [...] PERFORMANCE STATUS: 0 PHYSICAL EXAMINATION: Vitals: BP 138/68 Pulse 69 Temp (Src) 97.1 (Temporal) Resp 18 Wt 188 lb 7.9 oz (85.5kg) SpO2 100% Body surface area is 2.06 meters squared. Exam limited to gross visualization [...] Comments Pt gets sores in mouth MEDICATIONS: Catheter ([facility] MALE EXTERNAL CATH) misc 1 Device once daily. CARROLL CHEWABLE ASPIRIN 81 mg chewable tablet [...] mg cap Take by mouth once daily. iv contrast (will be provided with radiology [...] in the CT contrast administration guidelines link. enteric contrast (will be provided with radiology test) For CT CHESTABD/PEL W IVCON Routine order Administer, As Directed One Time Only, via Oral, Rectal, both Oral and Rectal, Enteric Tube, Stoma or Indwelling Catheter, Enteric Contrast as designated per enteric contrast guidelines iv contrast (will be provided with radiology [...] in the CT contrast administration guidelines link. enteric contrast (will be provided with radiology test) For CT CHESTABD/PEL W IVCON Routine order Administer, As Directed One Time Only, via Oral, Rectal, both Oral and Rectal, Enteric Tube, Stoma or Indwelling Catheter, Enteric Contrast as designated per enteric contrast guidelines iv contrast (will be provided with radiology [...] in the CT contrast administration guidelines link. enteric contrast (will be provided with radiology test) For CT CHESTABD/PEL W IVCON Routine order Administer, As Directed One Time Only, via Oral, Rectal, both Oral and Rectal, Enteric Tube, Stoma or Indwelling Catheter, Enteric Contrast as designated per enteric contrast guidelines LABORATORY VALUES: WBC (k/uL) Date Value 01/18/2025 4.96 RBC (m/uL) Date Value 01/18/2025 4.11 (L) Hemoglobin (g/dL) Date Value 01/18/2025 12.5 (L) Hematocrit (%) Date Value 01/18/2025 38.5 (L) MCV (fL) Date Value 01/18/2025 93.7 MCH (pg) Date Value 01/18/2025 30.4 MCHC (g/dL) Date Value 01/18/2025 32.5 RDW-CV (%) Date Value 01/18/2025 13.4 Platelet Count (k/uL) Date Value 01/18/2025 194 MPV (fL) Date Value 01/18/2025 8.4 (L) Glucose (mg/dL) Date Value 01/18/2025 82 BUN (mg/dL) Date Value 01/18/2025 27 (H) Creatinine (mg/dL) Date Value 01/18/2025 1.10 Sodium (mmol/L) Date Value 01/18/2025 140 Potassium (mmol/L) Date Value 01/18/2025 4.8 Chloride (mmol/L) Date Value 01/18/2025 107 CO2 (mmol/L) Date Value 01/18/2025 23 Protein, Total (g/dL) Date Value 01/18/2025 6.4 Albumin (g/dL) Date Value 01/18/2025 3.9 Calcium, Total (mg/dL) Date Value 01/18/2025 9.5 Alkaline Phosphatase (U/L) Date Value 01/18/2025 57 Bilirubin, Total (mg/dL) Date Value 01/18/2025 0.3 AST (U/L) Date Value 01/18/2025 17 ALT (U/L) Date Value 01/18/2025 18 DIAGNOSIS: (C67.9) Malignant neoplasm of urinary bladder, unspecified site (HCC) (primary encounter diagnosis) Plan: CT ABD/PEL W IVCON, CT CHEST W IVCON, iv contrast (will be provided with radiology test), enteric contrast (will be provided with radiology test), COMPLETE BLOOD COUNT AND DIFFERENTIAL, COMPREHENSIVE METABOLIC PANEL, IRON AND TIBC, FERRITIN, VITAMIN B12, FOLATE, SERUM (R91.8) Lung nodules Plan: CT ABD/PEL W IVCON, CT CHEST W IVCON, iv contrast (will be provided with radiology test), enteric contrast (will be provided with radiology test), COMPLETE BLOOD COUNT AND DIFFERENTIAL, COMPREHENSIVE METABOLIC PANEL, IRON AND TIBC, FERRITIN, VITAMIN B12, FOLATE, SERUM (N18.31) Stage 3a chronic kidney disease (HCC) Plan: CT ABD/PEL W IVCON, CT CHEST W IVCON, iv contrast (will be provided with radiology test), enteric contrast (will be provided with radiology test), COMPLETE BLOOD COUNT AND DIFFERENTIAL, COMPREHENSIVE METABOLIC PANEL, IRON AND TIBC, FERRITIN, VITAMIN B12, FOLATE, SERUM (D64.9) Anemia, unspecified type Plan: CT ABD/PEL W IVCON, CT CHEST W IVCON, iv contrast (will be provided with radiology test), enteric contrast (will be provided with radiology test), COMPLETE BLOOD COUNT AND DIFFERENTIAL, COMPREHENSIVE METABOLIC PANEL, IRON AND TIBC, FERRITIN, VITAMIN B12, FOLATE, SERUM (C67.8) Malignant neoplasm of overlapping sites of bladder (HCC) Plan: CT ABD/PEL W IVCON, CT CHEST W IVCON, iv contrast (will be provided with radiology test), enteric contrast (will be provided with radiology test), COMPLETE BLOOD COUNT AND DIFFERENTIAL, COMPREHENSIVE METABOLIC PANEL, IRON AND TIBC, FERRITIN, VITAMIN B12, FOLATE, SERUM PAST MEDICAL HISTORY Diagnosis Date Basal cell [...] Never Smokeless tobacco: Never Vaping Use Vaping status: Never Used Substance Use Topics Alcohol use: Yes Comment: beer rarely Drug use: No Comment: declines tx 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 FAMILY HISTORY Problem Relation Age of Onset Diabetes Mother Colon Cancer Father Ovarian cancer Sister Colon Cancer Brother I spent a total of 40 minutes on the date of service which included preparing to see the patient, [id number] patient care, completing clinical documentation, performing a medically appropriate examination, counseling and educating the patient/family/caregiver, ordering medications, tests, or procedures, independently interpreting results (not separately reported), communicating results to the patient/family/caregiver, and care coordination (not separately reported). Eugene Chaparro MD, CPE Hematology [facility] Oncology Services Provided at: [place], [place] Scribe Attestation: This note was scribed by Bianca Odonnell on January 29, 2025 under the direction and supervision of Dr. Eugene Chaparro. I attest that all of the information documented is correct to the best of my knowledge. Provider Attestation: I, Eugene Chaparro MD, attest that all information documented by the above scribe is correct, and was supervised by me and under my direction. CC: Suzanne Estrella documented in this encounter [facility] 01-29-2025 Note HNO ID: [id number] Author: EUGENE CHAPARRO MD Service: ? Author Type: Physician Type: Progress Notes Filed: 01/29/2025 12:52 Note Text: NAME: Kennedy Kong [facility] NO.: [id number] DATE OF SERVICE: January 29, 2025 (Deann) Some elements in this clinic note that are critical to medical decision making have been carefully reviewed and included from a prior clinic note dated: October 28, 2024 (Deann) Referring Provider: Dr. Leigh Grajeda Additional Clinicians involved in Kennedy Kong's care: Lesa Estrella, Kylie Tariq CC: Follow up for treatment. DIAGNOSIS: High grade muscle invasive bladder cancer ASSESSMENT: 89 year old man with a history of [...] December 05, 2023, was identified as having hsim-feowk-pbilvw invasive papillary bladder cancer and has been referred to Radiation oncology and subsequently to me for an opinion regarding chemotherapy. 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 He would likely tolerate low dose weekly cisplatin for radiosensitizing given appropriate supportive therapy. Will Coordinate with Dr. Grajeda. CT done today January 29, 2025 show resolution of lung nodule and no evidence of recurrence. PLAN: Triage to call with results of today's CT Follow up with Dr. Dietrich as scheduled CT CAP with labs in 3 months RTC 1 week after HPI: CASE HISTORY: Reverse Chronological Order 01/29/2025 - CT CAP: Final reading in process Chest: 1. There has been interval resolution of the previously identified 1.1 cm right upper lobe nodule. Additional subcentimeter nodularity adjacent to this region along the right major fissure appears less conspicuous. 2. Additional subcentimeter left-sided pulmonary nodules are unchanged. 3. No substantial intrathoracic adenopathy is identified. A/P: 1. Stable postoperative appearance to the abdomen and pelvis, without evidence for metastatic disease. 2. Circumferential wall thickening involving the distal sigmoid/rectum again the basis of prior radiation therapy, stable in appearance. 3. Wall thickening involving the urinary bladder, more prominent along the right lateral aspect is stable, also likely posttreatment related. 11/23/2024 - Cystoscopy: Dr. Dietrich Findings: Recurrent bulbar urethral stricture No new barrera bladder tumors Erythematous slightly raised mucosa along the back wall and dome Cytology: Urinary bladder washings: Groups of atypical urothelial cells noted Acute inflammation 10/20/2024 - PET/CT: Circumferential bladder wall thickening with perivesical and perirectal fat stranding likely representing postradiation changes. Nonavid right upper and middle lobe lung nodules, recommend follow-up with CT. 09/30/2024 - CT CAP: Chest: New 1.1 cm right upper lobe nodule and 0.6 cm right middle lobe nodule. Consider PET CT to assess the dominant pulmonary nodule, otherwise attention on follow-up is recommended. A/P: No metastatic disease in the abdomen or pelvis. 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 06/29/2024 - Cystoscopy: Dr. Dietrich Indurated thick bulbar urethral stricture No evidence of classic papillary bladder tumors 2 area that are minimally raised and erythematous on the right wall. 1 in the mid right wall and the other in the back right wall. Both of these areas are 1cm or less. 01/20/2024-03/02/2024 - Radiation to bladder 01/20/2024-02/19/2024 - Weekly Cisplatin 20 mg/m2 started with radiation (total dose of Cisplatin was 400mg/m2) 01/08/2024 - CT Chest: Subcentimeter noncalcified and [...] the cecum and throughout the colon. This (more content not included)... [facility] 01-29-2025 History of Present illness Narrative Radiology Service Progress Note PATIENT NAME: Kennedy Kong DATE OF SERVICE: January 29, 2025 TIME: 7:56 AM PATIENT IDENTITY VERIFICATION COMPLETED USING TWO (2) IDENTIFIERS: Name and Date of confirmed by patient verbally. FALL SCREENING: Has the patient had 2 falls in the last year or 1 fall with injury or currently using an Ambulatory Assistive Device (Walker, Cane, Wheelchair, Crutches, etc.)? 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 FALL SCREENING: Has the patient had 2 falls in the last year or 1 fall with injury or currently using an Ambulatory Assistive Device (Walker, Cane, Wheelchair, Crutches, etc.)? No PATIENT GENDER DATA: Assigned male at ALLERGIES: Reviewed and unchanged CONTRAST ALLERGY: No EXAM: CT -CONTRAST INDUCED NEPHROPATHY RISK FACTORS: Patient age > 60 years and Known Chronic Kidney Disease (CKD) CREATININE: Creatinine Date Value Ref Range Status 01/18/2025 1.10 0.73 - 1.22 mg/dL Final 09/30/2024 1.02 0.73 - 1.22 mg/dL Final 07/01/2024 1.18 0.73 - 1.22 mg/dL Final Estimated Glomerular Filtration Rate Date Value Ref Range Status 01/18/2025 65 >=60 mL/min/1.73m Final Comment: Estimated Glomerular Filtration Rate (eGFR) is calculated using the 2020 CKD-EPI creatinine equation. This equation utilizes serum creatinine, sex, and age as parameters. The creatinine assay has traceable calibration to isotope dilution-mass spectrometry. Refer to KDIGO guidelines for clinical interpretation. In patients with unstable renal function, e.g. those with acute kidney injury, the eGFR may not accurately reflect actual GFR. eGFR- Date Value Ref Range Status 01/23/2012 >60 Final P.O.C.T. RESULTS: POC done: Yes, See Lab Tab 2024 TREATMENT: No Hydration needed. IV SITE: Ambulatory: A peripheral IV was started in the Right antecubital site with a Angio cath: 20 gauge. IV SITE APPEARANCE: Clean,Dry and Intact SIGNATURE: Marti Dodson RN PATIENT NAME: Kennedy Kong DATE: January 29, 2025 TIME: 8:02 AM documented in this encounter [facility] 01-29-2025 Note HNO ID: [id number] Author: SHERRON RASMUSSEN RT(R) Service: ? Author Type: Technologist Type: Progress Notes Filed: 01/29/2025 07:56 Note Text: Radiology Service Progress Note PATIENT NAME: Kennedy Kong DATE OF SERVICE: January 29, 2025 TIME: 7:56 AM PATIENT IDENTITY VERIFICATION COMPLETED USING TWO (2) IDENTIFIERS: Name and Date of confirmed by patient verbally. FALL SCREENING: Has the patient had 2 falls in the last year or 1 fall with injury or currently using an Ambulatory Assistive Device (Walker, Cane, Wheelchair, Crutches, etc.)? No PATIENT GENDER DATA: Assigned male at PATIENT RELEVANT IMPLANT DATA REVIEWED: Not Applicable PATIENT PRESENTS WITH AN IMPLANTABLE OR ATTACHED PAPER COATING MACHINE OPERATOR: No RADIOLOGY DEPARTMENT: CT; Exam(s) Completed: Chest Abdomen Pelvis PERIPHERAL IV DATA: Site assessment: Clean,Dry and Intact, Site disposition Discontinued SIGNED BY: RT Myron(R) January 29, 2025 7:56 AM [facility] 01-29-2025 Note HNO ID: [id number] Author: MARTI DODSON RN Service: ? Author Type: Registered Nurse Type: Progress Notes Filed: 01/29/2025 08:05 Note Text: Radiology Service Progress Note DATE OF SERVICE: January 29, 2025 TIME: 8:02 AM PATIENT WEIGHT: LBS PATIENT IDENTITY VERIFICATION COMPLETED USING TWO (2) STANDARD IDENTIFIERS: Name and Date of confirmed by patient verbally. FALL SCREENING: Has the patient had 2 falls in the last year or 1 fall with injury or currently using an Ambulatory Assistive Device (Walker, Cane, Wheelchair, Crutches, etc.)? No PATIENT GENDER DATA: Assigned male at ALLERGIES: Reviewed and unchanged CONTRAST ALLERGY: No EXAM: CT -CONTRAST INDUCED NEPHROPATHY RISK FACTORS: Patient age > 60 years and Known Chronic Kidney Disease (CKD) CREATININE: Creatinine Date Value Ref Range Status 01/18/2025 1.10 0.73 - 1.22 mg/dL Final 09/30/2024 1.02 0.73 - 1.22 mg/dL Final 07/01/2024 1.18 0.73 - 1.22 mg/dL Final Estimated Glomerular Filtration Rate Date Value Ref Range Status 01/18/2025 65 >=60 mL/min/1.73m? Final Comment: Estimated Glomerular Filtration Rate (eGFR) is calculated using the 2020 CKD-EPI creatinine equation. This equation utilizes serum creatinine, sex, and age as parameters. The creatinine assay has traceable calibration to isotope dilution-mass spectrometry. Refer to KDIGO guidelines for clinical interpretation. In patients with unstable renal function, e.g. those with acute kidney injury, the eGFR may not accurately reflect actual GFR. eGFR- Date Value Ref Range Status 01/23/2012 >60 Final P.O.C.T. RESULTS: POC done: Yes, See Lab Tab 2024 TREATMENT: No Hydration needed. IV SITE: Ambulatory: A peripheral IV was started in the Right antecubital site with a Angio cath: 20 gauge. IV SITE APPEARANCE: Clean,Dry and Intact SIGNATURE: Marti Dodson RN PATIENT NAME: Kennedy Kong DATE: January 29, 2025 TIME: 8:02 AM [facility] 01-08-2025 Evaluation note Diagnosis Onset Date Resolution Allergic contact dermatitis noneactive January 08, 2025 8:48am Acute bronchitis due to Mycoplasma pneumoniae noneactive January 08, 2025 8:48am [facility] Work Phone: 1(896) 281-577103-21-2025 Evaluation note* Diagnosis Onset Date Resolution Status Admit Date Allergic contact dermatitis noneacti ve January 08, 2025 8:48am Acute bronchitis due to Mycoplasma pneumoniae noneactive December 8:48am Benign prostatic hyperplasia with lower urinary tract symptoms acute March 23, 2025 9 :59am Chronic HFrEF (heart failure with reduced ejection fraction) acute March 23, 2025 9:59am Chronic venous insufficiency acute March 23, 2025 9:59am Constipation, chronic acute Rolf 2024 9:59am Ischemic cardiomyopathy acute J une 2025 9:59am Papillary adenocarcinoma of bladder acute March 23, 2025 9 :59am [facility] Work Phone: 1(857) 463-565902-18-2025 Evaluation note* Diagnosis Onset Date Resolution Status Admit Date Ischemic cardiomyopathy acute F ebruary 2024 1:30pm Allergic rhinitis noneactive Februar y 2024 1:30pm Allergic contact dermatitis noneacti ve January 08, 2025 8:48am Acute bronchitis due to Mycoplasma pneumoniae noneactive December 8:48am [facility] Work Phone: [phone]) 813-856701-10-2025 Telephone encounter Note* Telephone Encounter - Sherron Singh RN - 10/30/2024 1:41 PM EST Pt scheduled for repeat cytoscopy w/ Dr Dietrich in November. Virginia from Dr Dietrich' office calls todaybecause the pt informed her that he had the scope in our office already. Explained to Virginia that our physicians do not perform cystoscopies. Informed her that he could be mistakenly referring to the PET scan that he had done here on 10/20/24. Virginia verbalizes understanding and will discuss further w/ pt. Sherron Singh RN [facility] Work Phone: 1(638) 519-160401-10-2025 Miscellaneous Notes* Telephone Encounter - Sherron Singh RN - 10/30/2024 1:41 PM EST Pt scheduled for repeat cytoscopy w/ Dr Dietrich in November. Virginia from Dr Dietrich' office calls todaybecause the pt informed her that he had the scope in our office already. Explained to Virginia that our physicians do not perform cystoscopies. Informed her that he could be mistakenly referring to the PET scan that he had done here on 10/20/24. Virginia verbalizes understanding and will discuss further w/ pt. Sherron Singh RN [facility] History of Present illness Narrative* Eugene Chaparro MD - 10/28/2024 11:20 AM EST Images from the original note were not included. NAME: Kennedy Kong [facility] NO.: [id number] DATE OF SERVICE: October 28, 2024 (Deann) Some elements in this clinic note that are critical to medical decision making have been carefully reviewed and included from a prior clinic note dated: July 01, 2024 (Deann) Referring Provider: Dr. Leigh Grajeda Additional Clinicians involved in Kennedy Kong's care: Lesa Estrella, Avel Heath, Kylie Dietrich CC: Follow up for treatment. DIAGNOSIS: High grade muscle invasive bladder cancer ASSESSMENT: 89 year old man with a history of colon cancer in his mid-50's treated with Chemo/RT followed by surgery complicated by several strictures and bowel obstructions requiring surgical intervention since. 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 He was treated with BCG through 09/2020. 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 He was given Mitomycin-C every 6 months from October 2021 - March 2023. On December 05, 2023, was identified as having [id number]-[id number] invasive papillary bladder cancer and has been referred to Radiation oncology and subsequently to me for an opinion regarding chemotherapy. 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 He would likely tolerate low dose weekly cisplatin for radiosensitizing given appropriate supportive therapy. Will Coordinate with Dr. Grajeda. PLAN: Follow up with Dr. Dietrich as scheduled in 11/2024 CT CAP with labs in 3 months RTC 1 week after HPI: CASE HISTORY: Reverse Chronological Order 10/20/2024 - PET/CT: Circumferential bladder wall thickening with perivesical and perirectal fat stranding likely representing postradiation changes. Nonavid right upper and middle lobe lung nodules, recommend follow-up with CT. 09/30/2024 - CT CAP: Chest: New 1.1 cm right upper lobe nodule and 0.6 cm right middle lobe nodule. Consider PET CT to assess the dominant pulmonary nodule, otherwise attention on follow-up is recommended. A/P: No metastatic disease in the abdomen or pelvis. 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 06/29/2024 - Cystoscopy: Dr. Dietrich Indurated thick bulbar urethral stricture No evidence of classic papillary bladder tumors 2 area that are minimally raised and erythematous on the right wall. 1 in the mid right wall and the other in the back right wall. Both of these areas are 1cm or less. 01/20/2024-03/02/2024 - Radiation to bladder 01/20/2024-02/19/2024 - Weekly Cisplatin 20 mg/m2 started with radiation (total dose of Cisplatin was 400mg/m2) 01/08/2024 - CT Chest: Subcentimeter noncalcified and partially calcified nodular opacities measuring up to 5 mm. Considerinterval follow-up. Findings compatible with previous granulomatous disease. [...] the right UVJ. Discrete uroepithelial lesion cannot beexcluded. Prostatomegaly. 04/2023 - Non-STEMI - SOB and chest pain - obtuse marginal branch stented with drug eluting stent 10/23/2021-04/11/2023 - Mitomycin C - bladder instillation q 6 months 08/21/2021 - CT A/P: Enlarged left hemiscrotum with heterogenous hyperattenuation centrally and foci or air and fluid peripherally. The differential diagnosis would include testicular fracture versus malignancy. Presenceof air could represent instrumentation or infection. Mildly enlarged heterogenous prostate gland. Di lated small bowel loops with rapid tapering and stool backup along suture lines at the rectosigmoidjunction. 03/24/2021 - Urine, cystoscopic collected: Negative for [...] Partial colectomy with colorectal anastomosis Updated Visit, October 28, 2024: Kennedy returns for a follow up. Last month's CT CAP showed 2 new right lung nodules, follow up PETrevealed the nodules are nonavid. There are postradiation changes in the bladder and no indicationsof metastatic disease. He has a follow up with Dr. Dietrich in 11/2024. He mentions a significant history of asbestos exposure during his work at [employer]. Updated Visit, July 01, 2024: Kennedy returns today for a follow up. He endorses doing well overall. Cystoscopy earlier this week- will need to obtain records. He endorses bowel incontinence since starting treatment in January. Hestates bowel movements are improving now since having a urinary catheter removed. He remains slightly anemic - will continue to monitor. Updated Visit, March 25, 2024: Kennedy returns, he is doing well overall. He was starting to feel worn down with treatments but heis now improving. Kidney function, WBC, and anemia are all recovering nicely after treatment. Updated Visit, February 26, 2024: Kennedy returns today for a follow up. He completed his 5 weekly doses of Cisplatin. He is still undergoing radiation - 3 days left. He is feeling a lot better after taking Macrobid for UTI. His rktknhj-zb-kgt is a patient of geni Jennings. Updated [...] day. His about 3.5 years ago from [employer]. Updated Visit, February 05, 2024: Kennedy Kong returns for follow-up and continued treatment. Overall he is tolerating treatment.He has had some diarrhea and has taken [...] begin treatment. He starts radiation today. He deniesfevers, chills, night sweats and signs/symptoms of infection. [...] his bladder, worse at night. He has cathetersat home and is capable of using them [...] PERFORMANCE STATUS: 0 PHYSICAL EXAMINATION: Vitals: BP 120/74 Pulse 73 Temp (Src) 97.7 (Temporal) Resp 16 Ht 5' 10.236 (1.78m) Wt 185 lb 3 oz (84.0kg) SpO2 99% BMI 26.39 kg/(m^2). Body surface area is 2.04 meters [...] mg cap Take by mouth once daily. iv contrast (will be provided with radiology test) CT Chest ABD/PEL-Inject, intravenously, once for1 dose.No IV access, insert saline lock prior to the beginning of sedation, infusion, injection of imaging exam. Discontinue saline lock post exam. If Pt. has a central line or IVAD, may access for administration according to line specific nursing protocol. Once exam is complete flush line and de-access according to line specific nursing protocol in the CT contrast administration guidelines link. enteric contrast (will be provided with radiology test) For CT CHESTABD/PEL W IVCON Routine order Administer, As Directed One Time Only, via Oral, Rectal, both Oral and Rectal, Enteric Tube, Stoma orIndwelling Catheter, Enteric Contrast as designated per enteric contrast guidelines iv contrast (will be provided with radiology test) CT Chest ABD/PEL-Inject, intravenously, once for1 dose.No IV access, insert saline lock prior to the beginning of sedation, infusion, injection of imaging exam. Discontinue saline lock post exam. If Pt. has a central line or IVAD, may access for administration according to line specific nursing protocol. Once exam is complete flush line and de-access according to line specific nursing protocol in the CT contrast administration guidelines link. enteric contrast (will be provided with radiology test) For CT CHESTABD/PEL W IVCON Routine order Administer, As Directed One Time Only, via Oral, Rectal, both Oral and Rectal, Enteric Tube, Stoma orIndwelling Catheter, Enteric Contrast as designated per enteric contrast guidelines Catheter ([facility] MALE EXTERNAL CATH) misc 1 Device once daily. LABORATORY VALUES: WBC (k/uL) Date Value 09/30/2024 4.67 RBC (m/uL) Date Value 09/30/2024 3.62 (L) Hemoglobin (g/dL) Date Value 09/30/2024 11.0 (L) Hematocrit (%) Date Value 09/30/2024 33.8 (L) MCV (fL) Date Value 09/30/2024 93.4 MCH (pg) Date Value 09/30/2024 30.4 MCHC (g/dL) Date Value 09/30/2024 32.5 RDW-CV (%) Date Value 09/30/2024 13.0 Platelet Count (k/uL) Date Value 09/30/2024 145 (L) MPV (fL) Date Value 09/30/2024 8.7 (L) Glucose (mg/dL) Date Value 09/30/2024 94 BUN (mg/dL) Date Value 09/30/2024 30 (H) Creatinine (mg/dL) Date Value 09/30/2024 1.02 Sodium (mmol/L) Date Value 09/30/2024 140 Potassium (mmol/L) Date Value 09/30/2024 4.7 Chloride (mmol/L) Date Value 09/30/2024 107 CO2 (mmol/L) Date Value 09/30/2024 26 Protein, Total (g/dL) Date Value 09/30/2024 5.7 (L) Albumin (g/dL) Date Value 09/30/2024 3.6 (L) Calcium, Total (mg/dL) Date Value 09/30/2024 8.9 Alkaline Phosphatase (U/L) Date Value 09/30/2024 47 Bilirubin, Total (mg/dL) Date Value 09/30/2024 0.3 AST (U/L) Date Value 09/30/2024 14 ALT (U/L) Date Value 09/30/2024 16 DIAGNOSIS: (C67.9) Malignant neoplasm of urinary bladder, unspecified site (HCC) (primary encounterdiagnosis) Plan: CT ABD/PEL W IVCON, CT CHEST W IVCON, iv contrast (will be provided with radiology test), enteric contrast (will be provided with radiology test), COMPLETE BLOOD COUNT AND DIFFERENTIAL, COMPREHENSIVE METABOLIC PANEL (R91.8) Lung nodules Plan: CT CHEST W IVCON (N18.31) Stage 3a chronic kidney disease (HCC) PAST MEDICAL HISTORY Diagnosis Date Basal cell [...] Never Smokeless tobacco: Never Vaping Use Vaping status: Never Used Substance Use Topics Alcohol use: Yes Comment: beer rarely Drug use: No Comment: declines tx 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 FAMILY HISTORY Problem Relation Age of Onset Diabetes Mother Colon Cancer Father Ovarian cancer Sister Colon Cancer Brother I spent a total of 30 minutes on the date of service which included preparing to see the patient, [id number] patient care, completing clinical documentation, performing a medically appropriate examination, counseling and educating the patient/family/caregiver, ordering medications, tests, or procedures, independently interpreting results (not separately reported), communicating results to the patient/family/caregiver, and care coordination (not separately reported). Eugene Chaparro MD, CPE Hematology and Oncology Services Provided at: [facility], [place], [place] Scribe Attestation: This note was scribed by Bianca Odonnell on October 28, 2024 under the direction and supervision of Dr. Eugene Chaparro. I attest that all of the information documented is correct to the best of my knowledge. Provider Attestation: I, Eugene Chaparro MD, attest that all information documented by the above scribe is correct, and was supervised by me and under my direction. CC: Suzanne Estrella documented in this encounterCincinnati [facility]01-08-2025 NoteHNO ID: [id number] Author: EUGENE CHAPARRO MD Service: ? Author Type: Physician Type: Progress Notes Filed: 10/29/2024 12:46 Note Text: NAME: Kennedy Kong [facility] NO.: [id number] DATE OF SERVICE: October 28, 2024 (Deann) Some elements in this clinic note that are critical to medical decision making have been carefully reviewed and included from a prior clinic note dated: July 01, 2024 (Deann) Referring Provider: Dr. Leigh Grajeda Additional Clinicians involved in Kennedy Kong's care: Lesa Estrella, Kylie Tariq CC: Follow up for treatment. DIAGNOSIS: High grade muscle invasive bladder cancer ASSESSMENT: 89 year old man with a history of [...] December 05, 2023, was identified as having [id number] invasive papillary bladder cancer and has been referred to Radiation oncology and subsequently to me for an opinion regarding chemotherapy. 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 He would likely tolerate low dose weekly cisplatin for radiosensitizing given appropriate supportive therapy. Will Coordinate with Dr. Grajeda. PLAN: Follow up with Dr. Dietrich as scheduled in 11/2024 CT CAP with labs in 3 months RTC 1 week after HPI: CASE HISTORY: Reverse Chronological Order 10/20/2024 - PET/CT: Circumferential bladder wall thickening with perivesical and perirectal fat stranding likely representing postradiation changes. Nonavid right upper and middle lobe lung nodules, recommend follow-up with CT. 09/30/2024 - CT CAP: Chest: New 1.1 cm right upper lobe nodule and 0.6 cm right middle lobe nodule. Consider PET CT to assess the dominant pulmonary nodule, otherwise attention on follow-up is recommended. A/P: No metastatic disease in the abdomen or pelvis. 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 06/29/2024 - Cystoscopy: Dr. Dietrich Indurated thick bulbar urethral stricture No evidence of classic papillary bladder tumors 2 area that are minimally raised and erythematous on the right wall. 1 in the mid right wall and the other in the back right wall. Both of these areas are 1cm or less. 01/20/2024-03/02/2024 - Radiation to bladder 01/20/2024-02/19/2024 - Weekly Cisplatin 20 mg/m2 started with radiation (total dose of Cisplatin was 400mg/m2) 01/08/2024 - CT Chest: Subcentimeter noncalcified and [...] papillary urothelial carcinoma with minor component of (more content not included)...[facility]01-08-2025 Instructions * Patient Instructions* Bianca Odonnell - 10/28/2024 10:44 AM EST Follow up with Dr. Dietrich as scheduled in 11/2024 CT CAP with labs in 3 months RTC 1 week after documented in this encounterCincinnati [facility]01-08-2025 NoteHNO ID: [id number] Author: Suzanne GRAJEDA MD Service: ? Author Type: Physician Type: Progress Notes Filed: 10/28/2024 10:18 Note Text: Radiation Oncology - Follow Up Note PATIENT [...] fractions ELAPSED TIME: 42 days. INTERVAL HISTORY: Overall doing fairly well. Denies hematuria. Is having some increased urgency and some decreased stream with incontinence wearing depends at night. No bowel related issues. RADIOLOGY: CT chest 09/30/2024: New 1.1 cm right upper lobe nodule and 0.6 cm right middle lobe nodule. Consider PET CT to assess the dominant pulmonary nodule, otherwise attention on follow-up is recommended. CT abdomen and pelvis 09/30/2024: No metastatic disease in the abdomen or pelvis. 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 PET/CT 10/20/2024: Circumferential bladder wall thickening with perivesical and perirectal fat stranding likely representing postradiation changes. Nonavid right upper and middle lobe lung nodules, recommend follow-up with CT. ALLERGIES Allergen Reactions Amoxicillin Other: See Comments Pt gets sores in mouth MEDICATIONS: CARROLL CHEWABLE ASPIRIN 81 mg chewable tablet CHEW 1 TABLET ONCE DAILY carvedilol (COREG) 6.25 mg tablet Take 6.25 mg by mouth two times a day with meals. rosuvastatin (CRESTOR) 40 mg tablet Take 40 mg by mouth once daily. tamsulosin (FLOMAX) 0.4 mg Take 0.4 mg by mouth once daily. Fish Oil-DHA-EPA 1,200-144-216 mg cap Take by mouth once daily. iv contrast (will be provided with radiology [...] in the CT contrast administration guidelines link. enteric contrast (will be provided with radiology test) For CT CHESTABD/PEL W IVCON Routine order Administer, As Directed One Time Only, via Oral, Rectal, both Oral and Rectal, Enteric Tube, Stoma or Indwelling Catheter, Enteric Contrast as designated per enteric contrast guidelines Catheter ([facility] MALE EXTERNAL CATH) misc 1 Device once daily. clopidogrel (PLAVIX) 75 mg tablet Take 75 mg by mouth once daily. REVIEW OF SYSTEMS: GENERAL: Negative [...] rashes or other skin changes. PHYSICAL EXAM: 10/28/24 1005 BP: 120/74 Pulse: 73 Resp: 16 Temp: 36.5 ?C (97.7 ?F) SpO2: 99% Weight: 84 kg (185 lb 3 oz) KPS: 90 General Appearance: Alert and oriented. No acute distress. Neck: Normal ROM. No palpable cervical or supraclavicular adenopathy. Abdomen: Soft. Nontender. Nondistended. Musculoskeletal: No edema. Normal ROM in extremities. No bone or spine tenderness. Neuro: Speech fluent. Gait normal. No focal deficits. Skin: No rashes noted Lymphatics: No palpable lymphadenopathy. 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 Has follow-up upcoming with Dr. Dietrich. Recent imaging without evidence of metastasis. 2. Lung nodules PET without suspicious uptake. Likely benign patient continue CT surveillance. Signed by: Suzanne Grajeda MD cc: Lesa Estrella ([place]) [address] [place] [address] No referring provider defined for this encounter.[facility] 10-28-2024 History of Present illness Narrative* Suzanne Grajeda MD - 10/28/2024 10:02 AM EST Radiation Oncology - Follow Up Note PATIENT [...] fractions ELAPSED TIME: 42 days. INTERVAL HISTORY: Overall doing fairly well. Denies hematuria. Is having some increased urgency andsome decreased stream with incontinence wearing depends at night. No bowel related issues. RADIOLOGY: CT chest 09/30/2024: New 1.1 cm right upper lobe nodule and 0.6 cm right middle lobe nodule. Consider PET CT to assess the dominant pulmonary nodule, otherwise attention on follow-up is recommended. CT abdomen and pelvis 09/30/2024: No metastatic disease in the abdomen or pelvis. 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 PET/CT 10/20/2024: Circumferential bladder wall thickening with perivesical and perirectal fat stranding likely representing postradiation changes. Nonavid right upper and middle lobe lung nodules, recommend follow-up with CT. ALLERGIES Allergen Reactions Amoxicillin Other: See Comments Pt gets sores in mouth MEDICATIONS: CARROLL CHEWABLE ASPIRIN 81 mg chewable tablet CHEW 1 TABLET ONCE DAILY carvedilol (COREG) 6.25 mg tablet Take 6.25 mg by mouth two times a day with meals. rosuvastatin (CRESTOR) 40 mg tablet Take 40 mg by mouth once daily. tamsulosin (FLOMAX) 0.4 mg Take 0.4 mg by mouth once daily. Fish Oil-DHA-EPA 1,200-144-216 mg cap Take by mouth once daily. iv contrast (will be provided with radiology test) CT Chest ABD/PEL-Inject, intravenously, once for1 dose.No IV access, insert saline lock prior to the beginning of sedation, infusion, injection of imaging exam. Discontinue saline lock post exam. If Pt. has a central line or IVAD, may access for administration according to line specific nursing protocol. Once exam is complete flush line and de-access according to line specific nursing protocol in the CT contrast administration guidelines link. enteric contrast (will be provided with radiology test) For CT CHESTABD/PEL W IVCON Routine order Administer, As Directed One Time Only, via Oral, Rectal, both Oral and Rectal, Enteric Tube, Stoma orIndwelling Catheter, Enteric Contrast as designated per enteric contrast guidelines C[facility]ter ([facility]) misc 1 Device once daily. clopidogrel (PLAVIX) 75 mg tablet Take 75 mg by mouth once daily. REVIEW OF SYSTEMS: GENERAL: Negative [...] rashes or other skin changes. PHYSICAL EXAM: 10/28/24 1005 BP: 120/74 Pulse: 73 Resp: 16 Temp: 36.5 C (97.7 F) SpO2: 99% Weight: 84 kg (185 lb 3 oz) KPS: 90 General Appearance: Alert and oriented. No acute distress. Neck: Normal ROM. No palpable cervical or supraclavicular adenopathy. Abdomen: Soft. Nontender. Nondistended. Musculoskeletal: No edema. Normal ROM in extremities. No bone or spine tenderness. Neuro: Speech fluent. Gait normal. No focal deficits. Skin: No rashes noted Lymphatics: No palpable lymphadenopathy. 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 Has follow-up upcoming with Dr. Dietrich. Recent imaging without evidence of metastasis. 2. Lung nodules PET without suspicious uptake. Likely benign patient continue CT surveillance. Signed by: Suzanne Grajeda MD cc: Lesa Estrella ([place]) [address] [place] [address] No referring provider defined for this encounter. documented in this encounterCincinnati [facility]12-31-2024 History of Present illness Narrative* Marti Dodson RN - 10/20/2024 12:45 PM EST Radiology Service Progress Note DATE OF SERVICE: October 20, 2024 TIME: 12:21 PM PATIENT WEIGHT: 181LBS PATIENT IDENTITY VERIFICATION COMPLETED USING TWO (2) STANDARD IDENTIFIERS: Name and Date of confirmed by patient verbally. FALL SCREENING: Has the patient had 2 falls in the last year or 1 fall with injury or currently using an Ambulatory Assistive Device (Walker, Cane, Wheelchair, Crutches, etc.)? No PATIENT GENDER DATA: Male ALLERGIES: Reviewed and unchanged CONTRAST ALLERGY: No EXAM: CT -CONTRAST INDUCED NEPHROPATHY RISK FACTORS: Not applicable CREATININE: Creatinine Date Value Ref Range Status 09/30/2024 1.02 0.73 - 1.22 mg/dL Final 07/01/2024 1.18 0.73 - 1.22 mg/dL Final 03/25/2024 1.19 0.73 - 1.22 mg/dL Final Estimated Glomerular Filtration Rate Date Value Ref Range Status 09/30/2024 71 >=60 mL/min/1.73m Final Comment: Estimated Glomerular Filtration Rate (eGFR) is calculated using the 2020 CKD-EPI creatinine equation. This equation utilizes serum creatinine, sex, and age as parameters. The creatinine assay has traceable calibration to isotope dilution- mass spectrometry. Refer to KDIGO guidelines for clinical interpretation. In patients with unstable renal function, e.g. those with acute kidney injury, the eGFRmay not accurately reflect actual GFR. eGFR- Date Value Ref Range Status 01/23/2012 >60 Final P.O.C.T. RESULTS: POC done: Yes, See Lab Tab October 20, 2024 TREATMENT: N/A IV SITE: Ambulatory: A peripheral IV was started in the Right forearm with a Angio cath: 22 gauge. IV SITE APPEARANCE: Clean,Dry and Intact SIGNATURE: Marti Dodson RN PATIENT NAME: Kennedy Kong DATE: October 20, 2024 TIME: 12:21 PM * Sherron Rasmussen RT(R) - 10/20/2024 12:45 PM EST RADIOLOGY SERVICE PROGRESS NOTE SERVICE DATE: 10/20/2024 SERVICE TIME: 1:16 PM PATIENT IDENTITY VERIFICATION COMPLETED USING TWO (2) STANDARD IDENTIFIERS: Name and Date of confirmed by patient verbally POST EXAM PIV STATUS: Discontinued PROCEDURE TYPE: NM INJECT: PET/CT BODY SCAN. 10.8 mCi F18 FDG. No other medications given.. ADMINISTRATION TIME: 1212 PATIENT DISCHARGED TO: Ambulatory patient, left [place] department area. Is this a therapy: No A Diagnostic radioactive procedure has taken place, with no further precautions necessary other than routine body substance precautions. More information regarding radiation safety can be found usingthis link: [email or web address]%20Nuclear%[email or web address] SIGNATURE: KRUPA Sanches) PATIENT NAME: Kennedy Kong DATE: October 20, 2024 TIME: 1:16 PM PAGER/CONTACT #: documented in this encounterCincinnati [facility]12-31-2024 NoteHNO ID: [id number] Author: MARTI DODSON RN Service: ? Author Type: Registered Nurse Type: Progress Notes Filed: 10/20/2024 12:22 Note Text: Radiology Service Progress Note DATE OF SERVICE: October 20, 2024 TIME: 12:21 PM PATIENT WEIGHT: 181LBS PATIENT IDENTITY VERIFICATION COMPLETED USING TWO (2) STANDARD IDENTIFIERS: Name and Date of confirmed by patient verbally. FALL SCREENING: Has the patient had 2 falls in the last year or 1 fall with injury or currently using an Ambulatory Assistive Device (Walker, Cane, Wheelchair, Crutches, etc.)? No PATIENT GENDER DATA: Male ALLERGIES: Reviewed and unchanged CONTRAST ALLERGY: No EXAM: CT -CONTRAST INDUCED NEPHROPATHY RISK FACTORS: Not applicable CREATININE: Creatinine Date Value Ref Range Status 09/30/2024 1.02 0.73 - 1.22 mg/dL Final 07/01/2024 1.18 0.73 - 1.22 mg/dL Final 03/25/2024 1.19 0.73 - 1.22 mg/dL Final Estimated Glomerular Filtration Rate Date Value Ref Range Status 09/30/2024 71 >=60 mL/min/1.73m? Final Comment: Estimated Glomerular Filtration Rate (eGFR) is calculated using the 2020 CKD-EPI creatinine equation. This equation utilizes serum creatinine, sex, and age as parameters. The creatinine assay has traceable calibration to isotope dilution-mass spectrometry. Refer to KDIGO guidelines for clinical interpretation. In patients with unstable renal function, e.g. those with acute kidney injury, the eGFR may not accurately reflect actual GFR. eGFR- Date Value Ref Range Status 01/23/2012 >60 Final P.O.C.T. RESULTS: POC done: Yes, See Lab Tab October 20, 2024 TREATMENT: N/A IV SITE: Ambulatory: A peripheral IV was started in the Right forearm with a Angio cath: 22 gauge. IV SITE APPEARANCE: Clean,Dry and Intact SIGNATURE: Marti Dodson RN PATIENT NAME: Kennedy Kong DATE: October 20, 2024 TIME: 12:21 [facility]12-31-2024 NoteHNO ID: [id number] Author: SHERRON RASMUSSEN RT(R) Service: ? Author Type: Technologist Type: Progress Notes Filed: 10/20/2024 13:17 Note Text: RADIOLOGY SERVICE PROGRESS NOTE SERVICE DATE: 10/20/2024 SERVICE TIME: 1:16 PM PATIENT IDENTITY VERIFICATION COMPLETED USING TWO (2) STANDARD IDENTIFIERS: Name and Date of confirmed by patient verbally POST EXAM PIV STATUS: Discontinued PROCEDURE TYPE: NM INJECT: PET/CT BODY SCAN. 10.8 mCi F18 FDG. No other medications given.. ADMINISTRATION TIME: 1212 PATIENT DISCHARGED TO: Ambulatory patient, left [place] department area. Is this a therapy: No A Diagnostic radioactive procedure has taken place, with no further precautions necessary other than routine body substance precautions. More information regarding radiation safety can be found using this link: [email or web address] SIGNATURE: RT Myron(R) PATIENT NAME: Kennedy Kong DATE: October 20, 2024 TIME: 1:16 PM PAGER/CONTACT #:[facility]12-16-2024 Telephone encounter Note* Telephone Encounter - Lincoln Alcazar - 10/05/2024 10:58 AM EST Patient scheduled for PET 10/20 with an arrival time of 1245 and a scan time of 200. Follow up moved to 10/28/24 at 10:[address] Grajeda and 11:[address] Bravo. Patient notified and confirmed. [facility]12-16-2024 Miscellaneous Notes* Telephone Encounter - Lincoln Alcazar - 10/05/2024 10:58 AM EST Patient scheduled for PET 10/20 with an arrival time of 1245 and a scan time of 200. Follow up moved to 10/28/24 at 10:[address] Grajeda and 11:[address] Bravo. Patient notified and confirmed. * Telephone Encounter - Sherron Singh RN - 10/05/2024 9:33 AM EST Pt notified and agrees to PET. Clerical: Please call before scheduling. Thanks! Sherron Singh RN * Telephone Encounter - Sherron Singh RN - 10/05/2024 9:33 AM EST ----- Message from Eugene Chaparro MD sent at 10/02/2024 5:53 PM EST ----- Angeline Benavides - the CT shows a spot that we should look into more if you are ok with that - I wouldlike to get a PET/CT before I see you next. documented in this encounterCincinnati [facility]12-16-2024 Telephone encounter Note * Telephone Encounter - Sherron Singh RN - 10/05/2024 9:33 AM EST Pt notified and agrees to PET. Clerical: Please call before scheduling. Thanks! Sherron Singh RN [facility] Work Phone: 1(760) 111-895712-16-2024 Telephone encounter Note* Telephone Encounter - Sherron Singh RN - 10/05/2024 9:33 AM EST ----- Message from Eugene Chaparro MD sent at 10/02/2024 5:53 PM EST ----- Angeline Benavides - the CT shows a spot that we should look into more if you are ok with that - I wouldlike to get a PET/CT before I see you next. [facility]12-11-2024 NoteHNO ID: [id number] Author: SHERRON RASMUSSEN RT(R) Service: ? Author Type: Technologist Type: Progress Notes Filed: 09/30/2024 10:08 Note Text: RADIOLOGY SERVICE PROGRESS NOTE SERVICE DATE: 09/30/2024 SERVICE TIME: 10:07 AM PATIENT IDENTITY VERIFICATION COMPLETED USING TWO (2) STANDARD IDENTIFIERS: Name and Date of confirmed by patient verbally FALL SCREENING: Has the patient had 2 falls in the last year or 1 fall with injury or currently using an Ambulatory Assistive Device (Walker, Cane, Wheelchair, Crutches, etc.)? 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 Final Comment: Estimated Glomerular Filtration Rate (eGFR) is calculated using the 2020 CKD-EPI creatinine equation. This equation utilizes serum creatinine, sex, and age as parameters. The creatinine assay has traceable calibration to isotope dilution-mass spectrometry. Refer to KDIGO guidelines for clinical interpretation. In patients with unstable renal function, e.g. those with acute kidney injury, the eGFR may not accurately reflect actual GFR. eGFR- Date Value Ref Range Status 01/23/2012 >60 Final P.O.C.T. RESULTS: N/A September 30, [address] PERFORMED: Yes. RADIOLOGIST NOTIFIED?: No CONTRAST ALLERGY: NO. PREMEDICATED: No CONTRAST: IV 100 ml IV contrast (350) given and Oral Omnipaque 240 DIABETIC PATIENT: No and Not applicable IV SITE: Ambulatory: A peripheral IV was started in the Right hand with a Angio cath: 20 gauge. POST EXAM PIV STATUS: Discontinued PROCEDURE TYPE: CT Chest/Abdomen/Pelvis with contrast PATIENT DISCHARGED TO: Ambulatory patient, left [place] department area. Is this a therapy: No A Diagnostic radioactive procedure has taken place, with no further precautions necessary other than routine body substance precautions. More information regarding radiation safety can be found using this link: [email or web address] SIGNATURE: RT Myron(R) PATIENT NAME: Kennedy Kong DATE: September 30, 2024 TIME: 10:07 AM PAGER/CONTACT #:[facility]12-02-2024 Evaluation note* Diagnosis Onset Date Resolution Status Admit Date Benign prostatic hyperplasia with lower urinary tract symptoms acute September 21 9:48am Chronic HFrEF (heart failure with reduced ejection fraction) acute September 21, 2024 9:48am Chronic venous insufficiency acute September 21, 2024 9:48am Constipation, chronic acute Dec 2023 9:48am Ischemic cardiomyopathy acute D ecember 2023 9:48am Medicare annual wellness vis it, subsequent acute September 21 9:48am Papillary adenocarcinoma of bladder acute September 21 9:48am [facility] Work Phone: 1(268) 651-612309-26-2024 Hospital Discharge instructions Patient Education 07/16/2024 09:03:29 Benign Prostatic Hyperplasia Benign Prostatic Hyperplasia Benign prostatic hyperplasia (BPH) is an enlarged prostate gland that is caused by the normal agingprocess. The prostate may get bigger as a man gets older. The condition is not caused by cancer. The prostate is a walnut-sized gland that is involved in the production of semen. It is located in front of the rectum and below the bladder. The bladder stores urine. The urethra carries stored urine ou t of the body. An enlarged prostate can press on the urethra. This can make it harder to pass urine. The buildup of urine in the bladder can cause infection. Back pressure and infection may progress to bladder damage and kidney (renal) failure. What are the causes? This condition is part of the normal aging process. However, not all men develop problems from thiscondition. If the prostate enlarges away from the urethra, urine flow will not be blocked. If it enlarges toward the urethra and compresses it, there will be problems passing urine. What increases the risk? This condition is more likely to develop in men older than 50 years. What are the signs or symptoms? Symptoms of this condition include: Getting up often during the night to urinate. Needing to urinate frequently during the day. Difficulty starting urine flow. Decrease in size and strength of your urine stream. Leaking (dribbling) after urinating. Inability to pass urine. This needs immediate treatment. Inability to completely empty your bladder. Pain when you pass urine. This is more common if there is also an infection. Urinary tract infection (UTI). How is this diagnosed? This condition is diagnosed based on your medical history, a physical exam, and your symptoms. Tests will also be done, such as: A post-void bladder scan. This measures any amount of urine that may remain in your bladder after you finish urinating. A digital rectal exam. In a rectal exam, your health care provider checks your prostate by putting a lubricated, gloved finger into your rectum to feel the back of your prostate gland. This exam detects the size of your gland and any abnormal lumps or growths. An exam of your urine (urinalysis). A prostate specific antigen (PSA) screening. This is a blood test used to screen for prostate cancer. An ultrasound. This test uses sound waves to electronically produce a picture of your prostate gland. Your health care provider may refer you to a specialist in kidney and prostate diseases (urologist). How is this treated? Once symptoms begin, your health care provider will monitor your condition (active surveillance or watchful waiting). Treatment for this condition will depend on the severity of your condition. Treatment may include: Observation and yearly exams. This may be the only treatment needed if your condition and symptoms are mild. Medicines to relieve your symptoms, including: ?Medicines to shrink the prostate. ?Medicines to relax the muscle of the prostate. Surgery in severe cases. Surgery may include: ?Prostatectomy. In this procedure, the prostate tissue is removed completely through an open incision or with a laparoscope or robotics. ?Transurethral resection of the prostate (TURP). In this procedure, a tool is inserted through the opening at the tip of the penis (urethra). It is used to cut away tissue of the inner core of the prostate. The pieces are removed through the same opening of the penis. This removes the blockage. ?Transurethral incision (TUIP). In this procedure, small cuts are made in the prostate. This lessens the prostate's pressure on the urethra. ?Transurethral microwave thermotherapy (TUMT). This procedure uses microwaves to create heat. The heat destroys and removes a small amount of prostate tissue. ?Transurethral needle ablation (TUNA). This procedure uses radio frequencies to destroy and remove a small amount of prostate tissue. ?Interstitial laser coagulation (ILC). This procedure uses a laser to destroy and remove a small amount of prostate tissue. ?Transurethral electrovaporization (TUVP). This procedure uses electrodes to destroy and remove a small amount of prostate tissue. ?Prostatic urethral lift. This procedure inserts an implant to push the lobes of the prostate away from the urethra. Follow these instructions at home: Take hrjj-gas-pwbwejy and prescription medicines only as told by your health care provider. Monitor your symptoms for any changes. Contact your health care provider with any changes. Avoid drinking large amounts of liquid before going to bed or out in public. Avoid or reduce how much caffeine or alcohol you drink. Give yourself time when you urinate. Keep all follow-up visits. This is important. Contact a health care provider if: You have unexplained back pain. Your symptoms do not get better with treatment. You develop side effects from the medicine you are taking. Your urine becomes very dark or has a bad smell. Your lower abdomen becomes distended and you have trouble passing urine. Get help right away if: You have a fever or chills. You suddenly cannot urinate. You feel light-headed or very dizzy, or you faint. There are large amounts of blood or clots in your urine. Your urinary problems become hard to manage. You develop moderate to severe low back or flank pain. The flank is the side of your body between the ribs and the hip. These symptoms may be an emergency. Get help right away. Call 911. Do not wait to see if the symptoms will go away. Do not drive yourself to the hospital. Summary Benign prostatic hyperplasia (BPH) is an enlarged prostate that is caused by the normal aging process. It is not caused by cancer. An enlarged prostate can press on the urethra. This can make it hard to pass urine. This condition is more likely to develop in men older than 50 years. Get help right away if you suddenly cannot urinate. This information is not intended to replace advice given to you by your health care provider. Make sure you discuss any questions you have with your health care provider. Document Revised: 04/25/2022 Document Reviewed: 04/25/2022 [employer] Patient Education 2023 [employer]. Follow Up Care 07/14/2024 10:32:11 With:WILY CHOI, Kylie Restrepo, URL Address: [address] [place] [phone]- When:3 months Comments:Due for cysto in Oct [address] [facility] 09-26-2024 NotePatient Education Urology Benign Prostatic Hyperplasia Benign prostatic hyperplasia (BPH) is an enlarged prostate gland that is caused by the normal agingprocess. The prostate may get bigger as a man gets older. The condition is not caused by cancer. The prostate is a walnut-sized gland that is involved in the production of semen. It is located in front of the rectum and below the bladder. The bladder stores urine. The urethra carries stored urine ou t of the body. An enlarged prostate can press on the urethra. This can make it harder to pass urine. The buildup of urine in the bladder can cause infection. Back pressure and infection may progress to bladder damage and kidney (renal) failure. What are the causes? This condition is part of the normal aging process. However, not all men develop problems from thiscondition. If the prostate enlarges away from the urethra, urine flow will not be blocked. If it enlarges toward the urethra and compresses it, there will be problems passing urine. What increases the risk? This condition is more likely to develop in men older than 50 years. What are the signs or symptoms? Symptoms of this condition include: ? Getting up often during the night to urinate. ? Needing to urinate frequently during the day. ? Difficulty starting urine flow. ? Decrease in size and strength of your urine stream. ? Leaking (dribbling) after urinating. ? Inability to pass urine. This needs immediate treatment. ? Inability to completely empty your bladder. ? Pain when you pass urine. This is more common if there is also an infection. ? Urinary tract infection (UTI). How is this diagnosed? This condition is diagnosed based on your medical history, a physical exam, and your symptoms. Tests will also be done, such as: ? A post-void bladder scan. This measures any amount of urine that may remain in your bladder afteryou finish urinating. ? A digital rectal exam. In a rectal exam, your health care provider checks your prostate by putting a lubricated, gloved finger into your rectum to feel the back of your prostate gland. This exam detects the size of your gland and any abnormal lumps or growths. ? An exam of your urine (urinalysis). ? A prostate specific antigen (PSA) screening. This is a blood test used to screen for prostate cancer. ? An ultrasound. This test uses sound waves to electronically produce a picture of your prostate gland. Your health care provider may refer you to a specialist in kidney and prostate diseases (urologist). How is this treated? Once symptoms begin, your health care provider will monitor your condition (active surveillance or watchful waiting). Treatment for this condition will depend on the severity of your condition. Treatment may include: ? Observation and yearly exams. This may be the only treatment needed if your condition and symptoms are mild. ? Medicines to relieve your symptoms, including: ? Medicines to shrink the prostate. ? Medicines to relax the muscle of the prostate. ? Surgery in severe cases. Surgery may include: ? Prostatectomy. In this procedure, the prostate tissue is removed completely through an open incision or with a laparoscope or robotics. ? Transurethral resection of the prostate (TURP). In this procedure, a tool is inserted through theopening at the tip of the penis (urethra). It is used to cut away tissue of the inner core of the prostate. The pieces are removed through the same opening of the penis. This removes the blockage. ? Transurethral incision (TUIP). In this procedure, small cuts are made in the prostate. This lessens the prostate's pressure on the urethra. ? Transurethral microwave thermotherapy (TUMT). This procedure uses microwaves to create heat. The heat destroys and removes a small amount of prostate tissue. ? Transurethral needle ablation (TUNA). This procedure uses radio frequencies to destroy and removea small amount of prostate tissue. ? Interstitial laser coagulation (ILC). This procedure uses a laser to destroy and remove a small amount of prostate tissue. ? Transurethral electrovaporization (TUVP). This procedure uses electrodes to destroy and remove a small amount of prostate tissue. ? Prostatic urethral lift. This procedure inserts an implant to push the lobes of the prostate awayfrom the urethra. Follow these instructions at home: ? Take lrtq-rqm-usmjpjd and prescription medicines only as told by your health care provider. ? Monitor your symptoms for any changes. Contact your health care provider with any changes. ? Avoid drinking large amounts of liquid before going to bed or out in public. ? Avoid or reduce how much caffeine or alcohol you drink. ? Give yourself time when you urinate. ? Keep all follow-up visits. This is important. Contact a health care provider if: ? You have unexplained back pain. ? Your symptoms do not get better with treatment. ? You develop side effec (more content not included)...[facility]09-16-2024 Telephone encounter Note* Telephone Encounter - Lali Byrd - 07/06/2024 10:[address] Eugene Chaparro is referring Kennedy back to Dr Heath for possible bowel strictures. Same dx asbefore. Thank you for scheduling this appointment. [facility]09-16-2024 Miscellaneous Notes* Telephone Encounter - Lali Byrd - 07/06/2024 10:[address] Eugene Chaparro is referring Kennedy back to Dr Heath for possible bowel strictures. Same dx asbefore. Thank you for scheduling this appointment. documented in this encounterCinc[facility]09-[facility] History of Present illness Narrative* Suzanne Grajeda MD - 07/01/2024 10:45 AM EDT Radiation Oncology - Follow Up Note PATIENT [...] fractions ELAPSED TIME: 42 days. INTERVAL HISTORY: Overall doing better. Having some continued issues with alternating diarrhea constipation. Denies pain or bleeding. Denies hematuria or dysuria. ALLERGIES Allergen Reactions Amoxicillin Other: See Comments Pt gets sores in mouth MEDICATIONS: Catheter ([facility] MALE EXTERNAL CATH) misc 1 Device once daily. CARROLL CHEWABLE ASPIRIN 81 mg chewable tablet [...] mg cap Take by mouth once daily. REVIEW OF SYSTEMS: GENERAL: Negative [...] cancer, high-grade locally advanced T2b/T3b N0 M0 Continue surveillance cystoscopy with Dr. Dietrich. Still having some episodic bowel issues somewhat chronic from prior surgical procedure. Has scans scheduled in 3 months. Will plan to see him back atthat time. Signed by: Suzanne Grajeda MD cc: Lesa Estrella (Stevie) [facility] [place] [phone] No referring provider defined for this encounter. documented in this encounterCincinnati [facility]09-11-2024 NoteHNO ID: [id number] Author: Suzanne GRAJEDA MD Service: ? Author Type: Physician Type: Progress Notes Filed: 07/09/2024 12:51 Note Text: Radiation Oncology - Follow Up Note PATIENT [...] fractions ELAPSED TIME: 42 days. INTERVAL HISTORY: Overall doing better. Having some continued issues with alternating diarrhea constipation. Denies pain or bleeding. Denies hematuria or dysuria. ALLERGIES Allergen Reactions Amoxicillin Other: See Comments Pt gets sores in mouth MEDICATIONS: Catheter ([facility] MALE EXTERNAL CATH) misc 1 Device once daily. CARROLL CHEWABLE ASPIRIN 81 mg chewable tablet [...] mg cap Take by mouth once daily. REVIEW OF SYSTEMS: GENERAL: Negative [...] ) BSA 2.03 BMI 26.24 Temp 36.2 ?C (97.2 ?F) Pulse 70 Resp 16 BP 113/65 SpO2 [...] cancer, high-grade locally advanced T2b/T3b N0 M0 Continue surveillance cystoscopy with Dr. Dietrich. Still having some episodic bowel issues somewhat chronic from prior surgical procedure. Has scans scheduled in 3 months. Will plan to see him back at that time. Signed by: Suzanne Grajeda MD cc: Lesa Estrella ([facility]) [address] [place], [place] [id number] No referring provider defined for this encounter.[facility] 07-01-2024 Instructions* Patient Instructions* Bianca Odonnell - 07/01/2024 10:32 AM EDT Obtain cystoscopy records from [facility] CT CAP with labs in 3 months RTC 1 week after documented in this encounterCincinnati [facility]09-11-2024 History of Present illness Narrative* Eugene Chaparro MD - 07/01/2024 10:30 AM EDT Images from the original note were not included. NAME: Kennedy Kong [facility] NO.: [id number] DATE OF SERVICE: July 01, 2024 (Deann) Some elements in this clinic note that are critical to medical decision making have been carefully reviewed and included from a prior clinic note dated: March 25, 2024 (Deann) Referring Provider: Dr. Leigh Grajeda Additional Clinicians involved in Kennedy Kong's care: Lesa Estrella, Avel Heath, Kylie Dietrich CC: Follow up for treatment. DIAGNOSIS: High grade muscle invasive bladder cancer ASSESSMENT: 89 year old man with a history of colon cancer in his mid-50's treated with Chemo/RT followed by surgery complicated by several strictures and bowel obstructions requiring surgical intervention since. 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 He was treated with BCG through 09/2020. 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 He was given Mitomycin-C every 6 months from October 2021 - March 2023. On December 05, 2023, was identified as having olwu-hcosi-nsnhpv invasive papillary bladder cancer and has been referred to Radiation oncology and subsequently to me for an opinion regarding chemotherapy. 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 He would likely tolerate low dose weekly cisplatin for radiosensitizing given appropriate supportive therapy. Will Coordinate with Dr. Grajeda. PLAN: Obtain cystoscopy records from [facility] CT CAP with labs in 3 months RTC 1 week after HPI: CASE HISTORY: Reverse Chronological Order 01/20/2024-03/02/2024 - Radiation to bladder 01/20/2024-02/19/2024 - Weekly Cisplatin 20 mg/m2 started with radiation (total dose of Cisplatin was 400mg/m2) 01/08/2024 - CT Chest: Subcentimeter noncalcified and partially calcified nodular opacities measuring up to 5 mm. Considerinterval follow-up. Findings compatible with previous granulomatous disease. [...] the right UVJ. Discrete uroepithelial lesion cannot beexcluded. Prostatomegaly. 04/2023 - Non-STEMI - SOB and chest pain - obtuse marginal branch stented with drug eluting stent 10/23/2021-04/11/2023 - Mitomycin C - bladder instillation q 6 months 08/21/2021 - CT A/P: Enlarged left hemiscrotum with heterogenous hyperattenuation centrally and foci or air and fluid peripherally. The differential diagnosis would include testicular fracture versus malignancy. Presenceof air could represent instrumentation or infection. Mildly enlarged heterogenous prostate gland. Di lated small bowel loops with rapid tapering and stool backup along suture lines at the rectosigmoidjunction. 03/24/2021 - Urine, cystoscopic collected: Negative for [...] Partial colectomy with colorectal anastomosis Updated Visit, July 01, 2024: Kennedy returns today for a follow up. He endorses doing well overall. Cystoscopy earlier this week- will need to obtain records. He endorses bowel incontinence since starting treatment in January. Hestates bowel movements are improving now since having a urinary catheter removed. He remains slightly anemic - will continue to monitor. Updated Visit, March 25, 2024: Kennedy returns, he is doing well overall. He was starting to feel worn down with treatments but heis now improving. Kidney function, WBC, and anemia are all recovering nicely after treatment. Updated Visit, February 26, 2024: Kennedy returns today for a follow up. He completed his 5 weekly doses of Cisplatin. He is still undergoing radiation - 3 days left. He is feeling a lot better after taking Macrobid for UTI. His tmfvytz-ih-fsw is a patient of [facility]. Updated Visit, February 12, [...] day. His about 3.5 years ago from [employer]. Updated Visit, February 05, 2024: Kennedy Kong returns for follow-up and continued treatment. Overall he is tolerating treatment.He has had some diarrhea and has taken [...] begin treatment. He starts radiation today. He deniesfevers, chills, night sweats and signs/symptoms of infection. [...] his bladder, worse at night. He has cathetersat home and is capable of using them [...] PERFORMANCE STATUS: 0 PHYSICAL EXAMINATION: Vitals: BP 116/71[recheck[ Pulse 67 Temp (Src) 97.2 (Temporal) Resp 16 Ht 5' 10.236 (1.78m) Wt 187 lb 6.3 oz (85.0kg) SpO2 98% BMI 26.71 kg/(m^2). Body surface area is 2.05 meters [...] Comments Pt gets sores in mouth MEDICATIONS: iv contrast (will be provided with radiology test) CT Chest ABD/PEL-Inject, intravenously, once for1 dose.No IV access, insert saline lock prior to the beginning of sedation, infusion, injection of imaging exam. Discontinue saline lock post exam. If Pt. has a central line or IVAD, may access for administration according to line specific nursing protocol. Once exam is complete flush line and de-access according to line specific nursing protocol in the CT contrast administration guidelines link. enteric contrast (will be provided with radiology test) For CT CHESTABD/PEL W IVCON Routine order Administer, As Directed One Time Only, via Oral, Rectal, both Oral and Rectal, Enteric Tube, Stoma orIndwelling Catheter, Enteric Contrast as designated per enteric contrast guidelines Catheter ([facility] MALE EXTERNAL CATH) misc 1 Device once daily. CARROLL CHEWABLE ASPIRIN 81 mg chewable tablet CHEW 1 TABLET ONCE DAILY carvedilol (COREG) 6.25 mg tablet Take 6.25 mg by mouth two times a day with meals. clopidogrel (PLAVIX) 75 mg tablet Take 75 mg by mouth once daily. (Patient not taking: Reported on 07/01/2024) rosuvastatin (CRESTOR) 40 mg tablet Take 40 mg by mouth once daily. tamsulosin (FLOMAX) 0.4 mg Take 0.4 mg by mouth once daily. Fish Oil-DHA-EPA 1,200-144-216 mg cap Take by mouth once daily. LABORATORY VALUES: WBC (k/uL) Date Value 07/01/2024 5.65 RBC (m/uL) Date Value 07/01/2024 3.68 (L) Hemoglobin (g/dL) Date Value 07/01/2024 11.3 (L) Hematocrit (%) Date Value 07/01/2024 34.3 (L) MCV (fL) Date Value 07/01/2024 93.2 MCH (pg) Date Value 07/01/2024 30.7 MCHC (g/dL) Date Value 07/01/2024 32.9 RDW-CV (%) Date Value 07/01/2024 12.4 Platelet Count (k/uL) Date Value 07/01/2024 155 MPV (fL) Date Value 07/01/2024 8.7 (L) Glucose (mg/dL) Date Value 07/01/2024 107 (H) BUN (mg/dL) Date Value 07/01/2024 31 (H) Creatinine (mg/dL) Date Value 07/01/2024 1.18 Sodium (mmol/L) Date Value 07/01/2024 141 Potassium (mmol/L) Date Value 07/01/2024 4.6 Chloride (mmol/L) Date Value 07/01/2024 106 CO2 (mmol/L) Date Value 07/01/2024 26 Protein, Total (g/dL) Date Value 07/01/2024 6.0 (L) Albumin (g/dL) Date Value 07/01/2024 3.9 Calcium, Total (mg/dL) Date Value 07/01/2024 9.3 Alkaline Phosphatase (U/L) Date Value 07/01/2024 54 Bilirubin, Total (mg/dL) Date Value 07/01/2024 0.3 AST (U/L) Date Value 07/01/2024 12 (L) ALT (U/L) Date Value 07/01/2024 10 DIAGNOSIS: (C67.0) 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) (primary encounter diagnosis) Plan: COMPLETE BLOOD COUNT AND DIFFERENTIAL, COMPREHENSIVE METABOLIC PANEL, IRON AND TIBC, FERRITIN, VITAMIN B12, FOLATE, SERUM, CT ABD/PEL W IVCON, CT CHEST W IVCON (D64.9) Anemia, unspecified type Plan: COMPLETE BLOOD COUNT AND DIFFERENTIAL, COMPREHENSIVE METABOLIC PANEL, IRON AND TIBC, FERRITIN, VITAMIN B12, FOLATE, SERUM PAST MEDICAL HISTORY No date: Basal cell cancer No date: Colon cancer (HCC) No date: Heart attack (HCC) 01/05/2024: 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) PAST SURGICAL HISTORY 1990: COLECTOMY PART W/ANASTOMOSIS Comment: followed with chemotx and radiation No date: COLONSCOPY SCREENING HIGH RISK 2007: EXCISION HYDROCELE UNILAT Comment: left 2010: EXPLORATORY LAPAROTOMY CELIOTOMY W/WO BIOPSY SPX Comment: Laparotomy, exp for obstruction with partial bowel resection No date: PAST SURGICAL HISTORY OF Comment: Basal cell carcinoma removed from right nares No date: PAST SURGICAL HISTORY OF Comment: cardiac stent placement 2010: RMVL LENS MATERIAL PHACOFRAGMENTATION ASPIR Comment: Cataract Extraction bilateral Social History Tobacco Use Smoking status: Never Smokeless tobacco: Never Vaping Use Vaping status: Never Used Substance Use Topics Alcohol use: Yes Comment: beer rarely Drug use: No Comment: declines tx 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 FAMILY HISTORY Problem Relation Age of Onset Diabetes Mother Colon Cancer Father Ovarian cancer Sister Colon Cancer Brother I spent a total of 30 minutes on the date of service which included preparing to see the patient, ljda-rm-rtgq patient care, completing clinical documentation, performing a medically appropriate examination, counseling and educating the patient/family/caregiver, ordering medications, tests, or procedures, independently interpreting results (not separately reported), communicating results to the patient/family/caregiver, and care coordination (not separately reported). Eugene Chaparro MD, CPE Hematology [facility] Oncology Services Provided at: [place], [place] Scribe Attestation: This note was scribed by Bianca Odonnell on July 01, 2024 under the direction and supervision of Dr. Eugene Chaparro. I attest that all of the information documented is correct to the best of my knowledge. Provider Attestation: I, Eugene Chaparro MD, attest that all information documented by the above scribe is correct, and was supervised by me and under my direction. CC: Suzanne Estrella documented in this encounterCincinnati [facility]09-11-[facility]24 NoteHNO ID: [id number] Author: EUGENE CHAPARRO MD Service: ? Author Type: Physician Type: Progress Notes Filed: 07/01/2024 20:24 Note Text: NAME: Kennedy Kong [facility] NO.: [id number] DATE OF SERVICE: July 01, 2024 (Deann) Some elements in this clinic note that are critical to medical decision making have been carefully reviewed and included from a prior clinic note dated: March 25, 2024 (Deann) Referring Provider: Dr. Leigh Grajeda Additional Clinicians involved in Kennedy Kong's care: Lesa Estrella, Kylie Tariq CC: Follow up for treatment. DIAGNOSIS: High grade muscle invasive bladder cancer ASSESSMENT: 89 year old man with a history of [...] December 05, 2023, was identified as having ipgz-udfzq-tatspc invasive papillary bladder cancer and has been referred to Radiation oncology and subsequently to me for an opinion regarding chemotherapy. 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 He would likely tolerate low dose weekly cisplatin for radiosensitizing given appropriate supportive therapy. Will Coordinate with Dr. Grajeda. PLAN: Obtain cystoscopy records from [facility] CT CAP with labs in 3 months RTC 1 week after HPI: CASE HISTORY: Reverse Chronological Order 01/20/2024-03/02/2024 - Radiation to bladder 01/20/2024-02/19/2024 - Weekly Cisplatin 20 mg/m2 started with radiation (total dose of Cisplatin was 400mg/m2) 01/08/2024 - CT Chest: Subcentimeter noncalcified and [...] Partial colectomy with colorectal anastomosis Updated Visit, July 01, 2024: Kennedy returns today for a follow up. He endorses doing well overall. Cystoscopy earlier this week - will need to obtain records. He endorses bowel incontinence since starting treatment in January. He states bowel movements are improving now since having a urinary catheter removed. He remains slightly anemic - will continue to monitor. Updated Visit, March 25, 2024: Kennedy returns, he is doing well overall. He was starting to feel worn down with treatments but he is now imp (more content not included)...[facility]09-11-2024 Nurse Note* Orly Garcia MA - 07/01/2024 10:11 AM EDT Patient states that his left leg is swollen, he notices it more now that he is off Plavix, he wonders if they Plavix was helping his circulation. Patient also states he had a scope, when the catheterwas placed his bowel movements have been normal usually they are loose. He took out the catheter this morning. He wonders if there is a prostate issue happening. Orly Garcia MA [facility]09-11-2024 Nurse Note* Orly Garcia MA - 07/01/2024 10:11 AM EDT Patient states that his left leg is swollen, he notices it more now that he is off Plavix, he wonders if they Plavix was helping his circulation. Patient also states he had a scope, when the catheterwas placed his bowel movements have been normal usually they are loose. He took out the catheter this morning. He wonders if there is a prostate issue happening. Orly Garcia MA documented in this encounterCincinnati [facility]09-03-[facility] Evaluation + Plan note Diagnostic Tests Pending * [facility] ([facility]) 06/23/24 [facility] 07-01-2024 Hospital Discharge instructions Patient Education 04/20/2024 14:46:42 [...] including vitamins, herbs, eye drops, creams, and czkp-kyu-wfdmmte medicines. Any problems you or family members [...] provider tells you to take them. Taking zlrx-qxk-mpnutht medicines, vitamins, herbs, and supplements. Tests You [...] Follow these instructions at home: Medicines Take iqon-ydz-hnfzofx and prescription medicines only as told by your health care provider. If you were prescribed an antibiotic medicine, take it as told by your health care provider. Do notstop taking the antibiotic even if you start [...] blood in your urine increases, call your healthcare provider. Follow instructions from your health care provider about eating or drinking restrictions. If a tissue sample was removed for testing (biopsy) during your procedure, it is up to you to get your test results. Ask your health care provider, or the department that is doing the test, when yourresults will be ready. Drink enough fluid to [...] blood in your urine increases, call your healthcare provider. If you were prescribed an antibiotic medicine, take it as told by your health care provider. Do notstop taking the antibiotic even if you start to feel better. This information is not intended to replace advice given to you by your health care provider. Make sure you discuss any questions you have with your health care provider. Document Revised: 06/20/2022 Document Reviewed: 05/19/2021 [employer] Patient Education 2022 amazing[employer]unes. Follow Up Care 02/20/2024 10:40:56 With:WILY CHOI, Kylie Restrepo, URL Address: [facility] [address] , [place] [address]- [phone] When: Unknown Comments:cysto due in June [facility] 07-01-2024 NoteUrology Office/Clinic Note Chief Complaint f/u after [facility] Referral HPI Staff Here for f/u after radiation at [facility]. Last seen in office 12/16/23. Dx: recurrent [...] invasion identified. No definitive lymphovascular invasion noted. [facility] ER visit 12/14/23 due to gross hematuria, [...] blood. Discussed this may be related to radiationcystitis. States he is supposed to be scheduled for a CT scan, advised pt this is due in May (can call our office if he needs an order). -Cont following with [facility] -Repeat cysto due late May/early June 2. Urge incontinence (N39.41: Urge incontinence) Reports severe leakage. Wears depends. Gets up multiple times per night. Very bothersome. Discussedstarting medication to improve bladder control. Pt wishes [...] Tamsulosin 0.4mg qd. [2] 4. Hydrocele (N43.3: Haines (more content not included)...[facility]Comment [facility]:Result Comment: Electronically Signed By: Kylie DIETRICH MD\.br\Date and Time Signed: 04/20/24 14:54 EDT\.br\Electronically Co- Signed By: Bonnie Castillo\.br\Date and Time Co-Signed: 04/20/24 14:50 EDT 04-20-2024 NotePatient Education Urology Cystoscopy Cystoscopy is a procedure [...] including vitamins, herbs, eye drops, creams, and agla-dhy-vizoafm medicines. ? Any problems you or family [...] tells you to take them. ? Taking kxps-gzp-mnrezla medicines, vitamins, herbs, and supplements. Tests You [...] taken to help prevent infection. These steps mayinclude: ? Washing skin with a germ-killing soap. [...] these instructions at home: Medicines ? Take dhmu-uor-stpkhxk and prescription medicines only as told by [...] procedure, it is up to you to getyour test results. Ask your health care provider, (more content not included)...[facility]06-05-[facility] History of Present illness Narrative* Suzanne Grajeda MD - 03/25/2024 1:47 PM EDT Radiation Oncology - Follow Up Note PATIENT [...] at the very end of treatment. This hasimproved considerably. Bowel function back to baseline. Denies [...] cap Take by mouth once daily. Catheter ([facility] MALE EXTERNAL CATH) misc 1 Device once [...] to see patient back in 2 to 3months for postradiation follow-up. Signed by: Suzanne Grajeda MD cc: Lesa Estrella ([facility]) [address] [place] [address] No referring provider defined for this encounter. documented in this encounterCinc[facility]06-05-2024 Instructions* Patient Instructions* Bianca Hardwick - 03/25/2024 1:37 PM EDT RTC in coordination with Dr. Grajeda Labs same day - CBC, CMP Next set of scans per Dr. Grajeda documented in this encounterCincinnati [facility]06-05-2024 Nurse Note* Orly Mistry MA - 03/25/2024 1:18 PM EDT Patient would like to know if his tumor is shrinking, growing or what may be going on, he said people are asking him and he is not sure himself. Orly Garcia MA [facility]06-05-2024 Nurse Note* Orly Garcia MA - 03/25/2024 1:18 PM EDT Patient would like to know if his tumor is shrinking, growing or what may be going on, he said people are asking him and he is not sure himself. Orly Garcia MA documented in this encounterCincinnati [facility]06-05-2024 History of Present illness Narrative* Eugene Chaparro MD - 03/25/2024 1:15 PM EDT Images from the original note were not included. NAME: Kennedy Kong CLINIC NO.: [id number] DATE OF SERVICE: March 25, 2024 (Deann) Some elements in this clinic note that are critical to medical decision making have been carefully reviewed and included from a prior clinic note dated: February 26, 2024 (Deann) Referring Provider: Dr. Leigh Grajeda Additional Clinicians involved in Kennedy Kong's care: Lesa Estrella, Avel Heath, Kylie Dietrich CC: Follow [...] treated with BCG through 09/2020. 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 He was given Mitomycin-C every 6 months from October 2021 - March 2023. On December 05, 2023, was identified as having cdfa-yhtso-ypexdn invasive papillary bladder cancer and has been [...] nodular opacities measuring up to 5 mm. Considerinterval follow-up. Findings compatible with previous granulomatous disease. [...] the right UVJ. Discrete uroepithelial lesion cannot beexcluded. Prostatomegaly. 04/2023 - Non-STEMI - SOB and chest pain - obtuse marginal branch stented with drug eluting stent 10/23/2021-04/11/2023 - Mitomycin C - bladder instillation q 6 months 08/21/2021 - CT A/P: Enlarged left hemiscrotum with heterogenous hyperattenuation centrally and foci or air and fluid peripherally. The differential diagnosis would include testicular fracture versus malignancy. Presenceof air could represent instrumentation or infection. Mildly enlarged heterogenous prostate gland. Di lated small bowel loops with rapid tapering and stool backup along suture lines at the rectosigmoidjunction. 03/24/2021 - Urine, cystoscopic collected: Negative for [...] to feel worn down with treatments but heis now improving. Kidney function, WBC, and anemia are all recovering nicely after treatment. Updated Visit, February 26, 2024: Kennedy returns today for a follow up. He completed his 5 weekly doses of Cisplatin. He is still undergoing radiation - 3 days left. He is feeling a lot better after taking Macrobid for UTI. His nnkkvym-nr-ncb is a patient of [facility]. Updated [...] day. His about 3.5 years ago from [employer]. Updated Visit, February 05, 2024: Kennedy Kong returns for follow-up and continued treatment. Overall he is tolerating treatment.He has had some diarrhea and has taken [...] begin treatment. He starts radiation today. He deniesfevers, chills, night sweats and signs/symptoms of infection. [...] his bladder, worse at night. He has cathetersat home and is capable of using them [...] cap Take by mouth once daily. Catheter ([facility] MALE EXTERNAL CATH) misc 1 Device once [...] which included preparing to see the patient, obxf-xg-phfp patient care, completing clinical documentation, performing a medically appropriate examination, counseling and educating the patient/family/caregiver, ordering medications, tests, or procedures, independently interpreting results (not separately reported), communicating results to the patient/family/caregiver, and care coordination (not separately reported). Eugene Chaparro MD, CPE Hematology and Oncology Services Provided at: [facility], [place], [place] Scribe Attestation: This note was scribed by Bianca Hardwick on March 25, 2024 under the direction and supervision of Dr. Eugene Chaparro. I attest that all of the information documented is correct to the best of my knowledge. Provider Attestation: I, Eugene Chaparro MD, attest that all information documented by the above scribe is correct, and was supervised by me and under my direction. CC: Suzanne Estrella documented in this encounterCincinnati [facility]05-30-2024 History of Present illness Narrative* Jana Pierre LSW - 03/19/2024 11:03 AM EDT SOCIAL WORK FOLLOW UP NOTE: CANCER CENTER Date of service:03/19/24 TOPICS ADDRESSED: community resources Assigned SW listed in Care Team tab: Yes SW completed and mailed a transportation mileage log to FACT (Financial Assistance for Cancer Treatment) for the month of February 2024. INES Shaw documented in this encounterCinc[facility]05-13-2024 History of Present illness Narrative* Suzanne Grajeda MD - 03/02/2024 8:44 AM EDT Radiation Oncology - On Treatment Review (OTR) [...] him. Suzanne Grajeda MD documented in this encounterCincinnati [facility]05-13-2024 History of Present illness Narrative* Suzanne Grajeda MD - 03/02/2024 12:00 AM EDT [facility] Radiation Oncology Department RADIATION ONCOLOGY - COMPLETION [...] 2 weeks for postradiation follow-up. Staff Physician Leigh Grajeda M.D. / ALANNAH 44:17 PM Electronically Signed cc: Dr. Sameer Chaparro documented in this encounterCincinnati [facility]05-08-2024 History of Present illness Narrative* Eugene Chaparro MD - 02/26/2024 10:15 AM EDT Images from the original note were not included. NAME: Kennedy Kong [facility] NO.: [id number] DATE OF SERVICE: February 26, 2024 (Deann) Some elements in this clinic note that are critical to medical decision making have been carefully reviewed and included from a prior clinic note dated: February 12, 2024 (Deann) Referring Provider: Dr. Leigh Grajeda Additional Clinicians involved in Kennedy Kong's care: Lesa Estrella, Avel Heath, Kylie Dietrich CC: Follow [...] treated with BCG through 09/2020. 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 He was given Mitomycin-C every 6 months from October 2021 - March 2023. On December 05, 2023, was identified as having eohz-djzyr-abukws invasive papillary bladder cancer and has been [...] nodular opacities measuring up to 5 mm. Considerinterval follow-up. Findings compatible with previous granulomatous disease. [...] the right UVJ. Discrete uroepithelial lesion cannot beexcluded. Prostatomegaly. 04/2023 - Non-STEMI - SOB and chest pain - obtuse marginal branch stented with drug eluting stent 10/23/2021-04/11/2023 - Mitomycin C - bladder instillation q 6 months 08/21/2021 - CT A/P: Enlarged left hemiscrotum with heterogenous hyperattenuation centrally and foci or air and fluid peripherally. The differential diagnosis would include testicular fracture versus malignancy. Presenceof air could represent instrumentation or infection. Mildly enlarged heterogenous prostate gland. Di lated small bowel loops with rapid tapering and stool backup along suture lines at the rectosigmoidjunction. 03/24/2021 - Urine, cystoscopic collected: Negative for [...] better after taking Macrobid for UTI. His fbstgwl-zb-has is a patient of [facility]. Updated Visit, February 12, 2024: Kennedy returns [...] day. His about 3.5 years ago from [employer]. Updated Visit, February 05, 2024: Kennedy Kong returns for follow-up and continued treatment. Overall he is tolerating treatment.He has had some diarrhea and has taken [...] begin treatment. He starts radiation today. He deniesfevers, chills, night sweats and signs/symptoms of infection. [...] his bladder, worse at night. He has cathetersat home and is capable of using them [...] times a day for 7 days. Catheter ([facility] MALE EXTERNAL CATH) misc 1 Device once [...] which included preparing to see the patient, iyst-dr-cpfz patient care, completing clinical documentation, performing a medically appropriate examination, counseling and educating the patient/family/caregiver, ordering medications, tests, or procedures, independently interpreting results (not separately reported), communicating results to the patient/family/caregiver, and care coordination (not separately reported). Eugene Chaparro MD, CPE Hematology and Oncology Services Provided at: [place], [place] Scribe Attestation: This note was scribed by Bianca Hardwick on February 26, 2024 under the direction and supervision of Dr. Eugene Chaparro. I attest that all of the information documented is correct to the best of my knowledge. Provider Attestation: I, Eugene Chaparro MD, attest that all information documented by the above scribe is correct, and was supervised by me and under my direction. CC: Suzanne Estrella documented in this encounterCincinnati [facility]05-08-2024 Instructions* Patient Instructions* Bianca Hardwick - 02/26/2024 10:15 AM EDT Discontinue Cisplatin Finish radiation on 03/02 RTC in coordination with Dr. Grajeda Labs same day - CBC, CMP Next set of scans per Dr. Grajeda documented in this encounterCincinnati [facility]05-08-2024 Nurse Note* Orly Mistry MA - 02/26/2024 9:57 AM EDT Patient states that he has constipation, he is taking stool softener. Orly Garcia MA [facility]05-08-2024 Nurse Note* Orly Garcia MA - 02/26/2024 9:57 AM EDT Patient states that he has constipation, he is taking stool softener. Orly Garcia MA documented in this encounterCincinnati [facility]05-06-2024 History of Present illness Narrative* Jana Pierre LSW - 02/24/2024 1:22 PM EDT SOCIAL WORK FOLLOW UP NOTE: CANCER CENTER Date of service:02/24/24 TOPICS ADDRESSED: community resources PLAN: Continue follow up as needed Assigned SW listed in Care Team tab: Yes SW completed and mailed a transportation mileage log to FACT (Financial Assistance for Cancer Treatment) for the month of January 2024. INES Shaw documented in this encounterCincinnati [facility]05-06-2024 History of Present illness Narrative* Suzanne Grajeda MD - 02/24/2024 9:47 AM EDT Radiation Oncology - On Treatment Review (OTR) Note PATIENT NAME: Kennedy Kong PATIENT DIAGNOSIS: Bladder cancer, high-grade locally advanced T2b/T3b N0 M0 COURSE: definitive and concurrent chemotherapy Current dose: 5000 cGy in 25 fx Planned dose: 6000 cGy in 30 fx SUBJECTIVE: Had some diarrhea over the weekend improved with Imodium. Venous duplex lower extremitynegative last week. Leg swelling stable. PHYSICAL EXAM: [...] diarrhea. Suzanne Grajeda MD documented in this encounterCincinnati [facility]05-06-2024 Telephone encounter Note * Telephone Encounter - Emeli Genao RN - 02/24/2024 9:31 AM EDT Pt here for XRT and was notified about his change of ATB. Pt verbalized understanding and will stopthe CIpro that was prescribed last week. Emeli Genao RN [facility]05-06-2024 Miscellaneous Notes* Telephone Encounter - Emeli Genao RN - 02/24/2024 9:31 AM EDT Pt here for XRT and was notified about his change of ATB. Pt verbalized understanding and will stopthe CIpro that was prescribed last week. Emeli Genao RN * Telephone Encounter - Sherron Singh RN - 02/24/2024 8:05 AM EDT Discussed w/ A.JUSTIN Genao, who will inform pt when here for radiation today. Sherron Singh RN * Telephone Encounter - Sherron Singh RN - 02/24/2024 8:04 AM EDT ----- Message from Eugene Chaparro MD sent at 02/23/2024 8:39 AM EDT ----- Angeline Kong - Stop taking Ciprofloxacin please - it is not effective against your urinary infection. - we didn't know this as the urine culture sensitivities didn't come back until now. I have sent another prescription for you called nitrofurantoin. documented in this encounterCincinnati [facility]05-06-2024 Telephone encounter Note * Telephone Encounter - Sherron Singh RN - 02/24/2024 8:05 AM EDT Discussed w/ A.JUSTIN Genao, who will inform pt when here for radiation today. Sherron Singh RN [facility] Work Phone: [phone]) [phone] Telephone encounter Note* Telephone Encounter - Sherron Singh RN - 02/24/2024 8:04 AM EDT ----- Message from Eugene Chaparro MD sent at 02/23/2024 8:39 AM EDT ----- Angeline Kong - Stop taking Ciprofloxacin please - it is not effective against your urinary infection. - we didn't know this as the urine culture sensitivities didn't come back until now. I have sent another prescription for you called nitrofurantoin. [facility]05-03-2024 Telephone encounter Note* Telephone Encounter - Sherron Singh RN - 02/21/2024 2:06 PM EDT Pt notified of script and verbalizes understanding. Sherron Singh RN [facility] Work Phone: [phone]) 124-750505-03-2024 Miscellaneous Notes* Telephone Encounter - Sherron Singh RN - 02/21/2024 2:06 PM EDT Pt notified of script and verbalizes understanding. Sherron Singh RN * Addendum Note - Eugene Chaparro MD - 02/21/2024 2:03 PM EDTAddended by: EUGENE CHAPARRO on: 02/21/2024 02:03 PM Modules accepted: Orders * Telephone Encounter - Eugene Chaparro MD - 02/21/2024 2:03 PM EDT Rx for cipro sent * Telephone Encounter - Emeli Genao RN - 02/21/2024 9:22 AM EDT Pt here for radiation with multiple complaints. [...] He would like any Rx sent to [facility]. We did discuss imodium usage and pushing fluids for hydration. Emeli Genao RN documented in this encounterCincinnati [facility]05-03-2024 Note* Addendum Note - Eugene Chaparro MD - 02/21/2024 2:03 PM EDTAddended by: EUGENE CHAPARRO on: 02/21/2024 02:03 PM Modules accepted: Orders [facility]05-03-2024 Telephone encounter Note* Telephone Encounter - Eugene Chaparro MD - 02/21/2024 2:03 PM EDT Rx for cipro sent [facility]05-[facility] History of Present illness Narrative* Emeli Genao RN - 02/21/2024 9:39 AM EDT Pt seen at request of radiation therapists due to multiple complaints. See Telephone counter to Dr Chaparro for complete documentation. Emeli Genao RN documented in this encounterCincinnati [facility]05-03-2024 Telephone encounter Note * Telephone Encounter - Emeli Genao RN - 02/21/2024 9:22 AM EDT Pt here for radiation with multiple complaints. [...] He would like any Rx sent to [facility]. We did discuss imodium usage and pushing fluids for hydration. Emeli Genao RN [facility]05-01-2024 History of Present illness Narrative* Nandini Angulo RN - 02/19/2024 2:55 PM EDT Patient had an episode of incontinence while [...] concerns. Nandini Angulo RN documented in this encounterCincinnati [facility]05-01-2024 Nurse Note* Taina Love MA - 02/19/2024 1:21 PM EDT Back office UA test performed. Results entered in [facility] and doctor notified. Taina Love MA [facility]05-01-2024 Telephone encounter Note* Telephone Encounter - Radha Torres RN - 02/19/2024 11:43 AM EDT Patient reports urinary frequency with retention throughout the night for the past month, notes none the days he gets IV lasix (w/tx), denies discomfort. Discussed with Dr Chaparro and orders received for UA and C&S today and instruct patient to contact Dr Dietrich for follow up Discussed with patient who agrees with plan Radha Torres RN [facility]05-01-2024 Miscellaneous Notes* Telephone Encounter - Radha Torres RN - 02/19/2024 11:43 AM EDT Patient reports urinary frequency with retention throughout the night for the past month, notes none the days he gets IV lasix (w/tx), denies discomfort. Discussed with Dr Chaparro and orders received for UA and C&S today and instruct patient to contact Dr Dietrich for follow up Discussed with patient who agrees with plan Radha Torres RN documented in this encounterCincinnati [facility]04-30-2024 Miscellaneous Notes* Telephone Encounter - Sherron Singh RN - 02/18/2024 2:26 PM EDT Sizing phoned to [employer]. Sherron Singh RN * Telephone Encounter - Sherron Singh RN - 02/18/2024 11:27 AM EDT Pt sized for catheter while here for radiation today. Per JUSTIN Miller, the sizing guide [id number] mm (intermediate). Call placed to [facility]. She was not available at time of call. Message left w/ office staff requesting she call back when convenient. Sherron Singh RN * Telephone Encounter - Sherron Singh RN - 02/18/2024 8:02 AM EDT Voicemail message received from [facility] Requests that we specify size of pt's [place] catheter. Sizing guide printed and given to [employer] and [employer]. They will assist pt when here today for radiation. Sherron Singh RN documented in this encounterCincinnati [facility]04-30-2024 Telephone encounter Note * Telephone Encounter - Sherron Singh RN - 02/18/2024 2:26 PM EDT Sizing phoned to [employer]. Sherron Singh RN [facility] Work Phone: [phone] Telephone encounter Note* Telephone Encounter - Sherron Singh RN - 02/18/2024 11:27 AM EDT Pt sized for catheter while here for radiation today. Per JUSTIN Miller, the sizing guide [id number] mm (intermediate). Call placed to [facility]. She was not available at time of call. Message left w/ office staff requesting she call back when convenient. Sherron Singh RN [facility] [facility] History of Present illness Narrative* Suzanne Grajeda MD - 02/18/2024 10:04 AM EDT Boost films reviewed. documented in this encounterC[facility]04-30-[facility]24 Telephone encounter Note * Telephone Encounter - Sherron Singh RN - 02/18/2024 8:02 AM EDT Voicemail message received from [employer]. Requests that we specify size of pt's tex[place] catheter. Sizing guide printed and given to Christina. They will assist pt when here today for radiation. Sherron Singh RN [facility]04-29-2024 Note* Addendum Note - Suzanne Grajeda MD - 02/17/2024 10:29 AM EDTAddended by: Suzanne GRAJEDA on: 02/17/2024 10:29 AM Modules accepted: Orders [facility]04-29-2024 Miscellaneous Notes* Addendum Note - Suzanne Grajeda MD - 02/17/2024 10:29 AM EDTAddended by: Suzanne GRAJEDA on: 02/17/2024 10:29 AM Modules accepted: Orders * Addendum Note - Epi Razo LPN - 02/17/2024 10:15 AM EDTAddended by: EPI RAZO on: 02/17/2024 10:15 AM Modules accepted: Orders documented in this encounterCincinnati [facility]04-29-2024 Note* Addendum Note - Epi Razo LPN - 02/17/2024 10:15 AM EDTAddended by: EPI RAZO on: 02/17/2024 10:15 AM Modules accepted: Orders [facility]04-29-[facility] History of Present illness Narrative* Suzanne Grajeda MD - 02/17/2024 9:28 AM EDT Radiation Oncology - On Treatment Review (OTR) [...] the differential recommend venous duplex for further e valuation. Suzanne Grajeda MD documented in this encounterCincinnati [facility]04-24-2024 Telephone encounter Note * Telephone Encounter - Sherron Singh RN - 02/12/2024 3:17 PM EDT Order faxed to [place] [facility]. Attn: Alanis Arce. [phone]. Sherron Singh RN [facility]04-24-2024 Miscellaneous Notes* Telephone Encounter - Sherron Singh RN - 02/12/2024 3:17 PM EDT Order faxed to [place] [facility]. Attn: Alanis Arce. [phone]. Sherron Singh RN * Telephone Encounter - Sherron Singh RN - 02/12/2024 10:54 AM EDT Images from the original note were not included. Eugene Chaparro MD Sessler, Rebecca, RN; Epi Razo LPN Anyone know where he could get a texas saldaña or condom catheter? [facility] in [place] will dispense urinary supplies through their home health division. Gena: Order pended. Sherron Singh RN documented in this encounterCincinnati [facility]04-24-2024 History of Present illness Narrative* Trina Andrade RN - 02/12/2024 11:[address] Chaparro would like magnesium given to pt. No need to draw mag level. Replacing mag d/t cisplatin. Trina Andrade, RN documented in this encounterCincinnati [facility]04-24-2024 Telephone encounter Note * Telephone Encounter - Sherron iSngh RN - 02/12/2024 10:54 AM EDT Images from the original note were not included. Eugene Chaparro MD Sessler, Rebecca, JUSTIN; Epi Razo LPN Anyone know where he could get a texas saldaña or condom catheter? [facility] in [place] will dispense urinary supplies through their home health division. Gena: Order pended. Sherron Singh RN [place] [id number] Instructions* Patient Instructions* Bianca Hardwick - 02/12/2024 10:07 AM EDT Will continue with weekly Cisplatin concurrent with radiation. Anticipate today's dose and next week RTC in 2 weeks to review toxicity Labs same day but do not anticipate additional chemotherapy documented in this encounterCincinnati [facility]04-24-2024 Nurse Note* Oryl Mistry MA - 02/12/2024 9:56 AM EDT Patient did bring a stool sample in due to bowel movements being black then dark brown. He has not received the results of this. Orly Garcia MA [facility]04-24-2024 Nurse Note* Orly Garcia MA - 02/12/2024 9:56 AM EDT Patient did bring a stool sample in due to bowel movements being black then dark brown. He has not received the results of this. Orly Garcia MA * Orly Garcia MA - 02/12/2024 9:53 AM EDT Patient states he has burning with urination, bowels do not move real good. Orly Garcia MA documented in this encounterCincinnati [facility]04-24-2024 Nurse Note* Orly Mistry MA - 02/12/2024 9:53 AM EDT Patient states he has burning with urination, bowels do not move real good. Orly Garcia MA [facility]04-24-2024 History of Present illness Narrative* Eugene Chaparro MD - 02/12/2024 9:45 AM EDT Images from the original note were not included. NAME: Kennedy Kong [facility] NO.: [id number] DATE OF SERVICE: February 12, 2024 (Deann) Some elements in this clinic note that are critical to medical decision making have been carefully reviewed and included from a prior clinic note dated: February 05, 2024 (Toñito). Referring Provider: Dr. Leigh Grajeda Additional Clinicians involved in Kennedy Kong's care: Lesa Estrella, Avel Heath, Kylie Dietrich CC: Follow [...] treated with BCG through 09/2020. 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 He was given Mitomycin-C every 6 months from October 2021 - March 2023. On December 05, 2023, was identified as having cjep-cligg-gtkfda invasive papillary bladder cancer and has been [...] nodular opacities measuring up to 5 mm. Considerinterval follow-up. Findings compatible with previous granulomatous disease. [...] the right UVJ. Discrete uroepithelial lesion cannot beexcluded. Prostatomegaly. 04/2023 - Non-STEMI - SOB and chest pain - obtuse marginal branch stented with drug eluting stent 10/23/2021-04/11/2023 - Mitomycin C - bladder instillation q 6 months 08/21/2021 - CT A/P: Enlarged left hemiscrotum with heterogenous hyperattenuation centrally and foci or air and fluid peripherally. The differential diagnosis would include testicular fracture versus malignancy. Presenceof air could represent instrumentation or infection. Mildly enlarged heterogenous prostate gland. Di lated small bowel loops with rapid tapering and stool backup along suture lines at the rectosigmoidjunction. 03/24/2021 - Urine, cystoscopic collected: Negative for [...] day. His about 3.5 years ago from [employer]. Updated Visit, February 05, 2024: Kennedy Kong returns for follow-up and continued treatment. Overall he is tolerating treatment.He has had some diarrhea and has taken [...] begin treatment. He starts radiation today. He deniesfevers, chills, night sweats and signs/symptoms of infection. [...] his bladder, worse at night. He has cathetersat home and is capable of using them [...] by mouth every 6 hours as needed.^Disp: 100tablet^Rfl: 1 CARROLL CHEWABLE ASPIRIN 81 mg chewable [...] cap^Take by mouth once daily.^Disp: ^Rfl: Catheter ([facility] MALE EXTERNAL CATH) misc^1 Device once daily.^Disp: [...] which included preparing to see the patient, xseb-zg-fgot patient care, completing clinical documentation, performing a medically appropriate examination, counseling and educating the patient/family/caregiver, ordering medications, tests, or procedures, independently interpreting results (not separately reported), communicating results to the patient/family/caregiver, and care coordination (not separately reported). Eugene Chaparro MD, CPE Hematology and Oncology Services Provided at: [facility], RASH[place] Hart Scribe Attestation: This note was scribed by Bianca Hardwick on February 12, 2024 under the direction and supervision ofDr. Eugene Chaparro. I attest that all of the information documented is correct to the best of my knowledge. Provider Attestation: I, Eugene Chaparro MD, attest that all information documented by the above scribe is correct, and was supervised by me and under my direction. CC: Suzanne Estrella documented in this encounterCinc[facility]04-22-2024 History of Present illness Narrative* Suzanne Grajeda MD - 02/10/2024 10:45 AM EDT Radiation Oncology - On Treatment Review (OTR) [...] outlined. Suzanne Grajeda MD documented in this encounterCinc[facility]04-18-2024 History of Present illness Narrative* Heena Burgos, JUSTIN - 02/06/2024 9:34 AM EDT Repeat CR 1.13 today reviewed with saman Sanderson to proceed with treatment. documented in this encounterCinc[facility]04-17-2024 History of Present illness Narrative* Glenda Bhatia RN - 02/05/2024 10:16 AM EDT No tx today per DESTINY Jesus. IVF only. Glenda Bhatia RN documented in this encounterCinc[facility]04-17-2024 History of Present illness Narrative* sAhlyn Sibley APRN.DESTINY - 02/05/2024 9:12 AM EDT Images from the original note were not included. NAME: Kennedy Kong [facility] NO.: [id number] DATE OF SERVICE: February 05, 2024 (Toñito) Referring Provider: Dr. Leigh Grajeda (Elements copied from Jasmine Chriss, PA note dated January 28, 2024, have been reviewed and updated where appropriate, and all reflect current assessment and medical decision making during today's encounter, February 05, 2024.) Additional Clinicians involved in Kennedy Kong's care: Lesa Estrella, Avel Heath, Kylie Dietrich CC: Follow [...] treated with BCG through 09/2020. 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 He was given Mitomycin-C every 6 months from October 2021 - March 2023. On December 05, 2023, was identified as having nmll-wsgsy-ujuelv invasive papillary bladder cancer and has been [...] the right UVJ. Discrete uroepithelial lesion cannot beexcluded. Prostatomegaly. 04/2023 - Non-STEMI - SOB and chest pain - obtuse marginal branch stented with drug eluting stent 10/23/2021 - 04/11/2023 - Mitomycin C - bladder instillation q 6 months 08/21/2021 - CT A/P: Enlarged left hemiscrotum with heterogenous hyperattenuation centrally and foci or air and fluid peripherally. The differential diagnosis would include testicular fracture versus malignancy. Presenceof air could represent instrumentation or infection. Mildly enlarged heterogenous prostate gland. Di lated small bowel loops with rapid tapering and stool backup along suture lines at the rectosigmoidjunction. 03/24/2021 - Urine, cystoscopic collected: Negative for [...] and continued treatment. Overall he is tolerating treatment.He has had some diarrhea and has taken [...] is unchanged. January 20, 2024 Visit with Ashlyn Sibley NP Note not complete at the time [...] his bladder, worse at night. He has cathetersat home and is capable of using them [...] Father Ovarian cancer Sister Colon Cancer Brother Ashlyn Sibley APRN.DESTINY Hematology and Oncology Services Provided at: [place], [place] CC: Suzanne Estrella documented in this encounterCinc[facility]04-16-2024 Miscellaneous Notes* Telephone Encounter - Sherron Singh RN - 02/04/2024 3:43 PM EDT Pt already scheduled to see Ashlyn tomorrow for RV and treatment. Ashlyn: Please see Jasmine's message below. Sherron Singh RN * Telephone Encounter - Sherron Singh RN - 02/04/2024 3:43 PM EDT ----- Message from Jasmine Saunders PA-C sent at 02/04/2024 3:41 PM EDT ----- He should probably get some hydration documented in this encounterCincinnati [facility]04-16-2024 Nurse Note* Epi Razo LPN - 02/04/2024 2:40 PM EDT Kennedy Kong presents in office today for: Lab and radiation therapy. Ordering Provider: Leigh Grajeda M.D. Test (s) ordered: CBC CMP [...] the department without assist. documented in this encounterCinc[facility]04-15-2024 History of Present illness Narrative* Suzanne Grajeda MD - 02/03/2024 9:54 AM EDT Radiation Oncology - On Treatment Review (OTR) [...] outlined. Suzanne Grajeda MD documented in this encounterCinc[facility]04-12-2024 History of Present illness Narrative* Jana Pierre LSW - 01/31/2024 3:42 PM EDT .PSYCHOSOCIAL SCREENING ASSESSMENT Date of Service: February 03, 2024 Kennedy Kong is a 88 year old male being seen for initial social work assessment. Diagnosis: Bladder Cancer Recurrence Primary Oncologist: Dr. Eugene Chaparro Radiation Oncologist: Dr. Denisse Grajeda Goals of Care: Curative intent Today's visit includes: self/patient Family History of Cancer: Father and Sibling(s) SUPPORT NETWORK: Social Connections: Not on file Marital status: Parent(s): Mother is and Father is Child/Children: Yes. How many? 6 (one son Rios is ) primary health care nurse arrangements needed: Na Grandchild(fredis): > 5 Home Health Provider: No Community Services: No Jennifer Identified: Yes Voodoo/Spirituality: Worship Are these practices or beliefs that may affect or influence treatment? Yes EMPLOYMENT/FINANCIAL/HEALTH INSURANCE: Employment: Retired Income source: Social Security Insurance: Medicare with co-insurance Prescription coverage: Yes Is the patient appropriate for referral to [facility] COBRA Assistance program? N/A Financial Distress: No FOOD [...] DIRECTIVES/LEGAL DOCUMENTS: Living Will: Yes Scanned into [employer]: No Health Care Durable Power of City Secretary: Yes Scanned into EPIC: No Guardianship: NA [...] of bladder cancer. Patient lives alone in [place], [place]. Patient has children and grandchildren who are involved and supportive. Patient is retired from [employer]. 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 * Telephone Encounter - Albertina Love RN - 01/29/2024 10:41 AM EDT Patient is having an issue with excessive urinary incontinence per radiation department. Patient did tell them he has issues on chemo treatment day due to lasix we give him with his weekly Cisplatin.Patient received 40mg IV with chemo. Wondering if on chemo treatment days we could decrease or omit the lasix? Thanks Andrew Love RN documented in this encounterCincinnati [facility]04-09-2024 History of Present illness Narrative* Suzanne Grajeda MD - 01/28/2024 10:55 AM EDT Radiation Oncology - On Treatment Review (OTR) [...] outlined. Suzanne Grajeda MD documented in this encounterCinc[facility]04-09-2024 History of Present illness Narrative* Jasmine Saunders PA-C - 01/28/2024 8:30 AM EDT Images from the original note were not included. NAME: Kennedy Kong NO.: [id number] DATE OF SERVICE: January 28, 2024 (Nicky) Referring Provider: Dr. Leigh Grajeda (Elements copied from Dr. Chaparro's note dated January 03, 2024, have been reviewed and updated where appropriate, and all reflect current assessment and medical decision making during today's encounter, January 28, 2024) Additional Clinicians involved in Kennedy Kong's care: Lesa Estrella, Avel Heath, Kylie Dietrich CC: follow [...] treated with BCG through 09/2020. 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 He was given Mitomycin-C every 6 months from October 2021 - March 2023. On December 05, 2023, was identified as having vzaz-wijlc-qidcya invasive papillary bladder cancer and has been [...] the right UVJ. Discrete uroepithelial lesion cannot beexcluded. Prostatomegaly. 04/2023 - Non-STEMI - SOB and chest pain - obtuse marginal branch stented with drug eluting stent 10/23/2021 - 04/11/2023 - Mitomycin C - bladder instillation q 6 months 08/21/2021 - CT A/P: Enlarged left hemiscrotum with heterogenous hyperattenuation centrally and foci or air and fluid peripherally. The differential diagnosis would include testicular fracture versus malignancy. Presenceof air could represent instrumentation or infection. Mildly enlarged heterogenous prostate gland. Di lated small bowel loops with rapid tapering and stool backup along suture lines at the rectosigmoidjunction. 03/24/2021 - Urine, cystoscopic collected: Negative for [...] is unchanged. January 20, 2024 Visit with Ashlyn Sibley NP Note not complete at the time [...] his bladder, worse at night. He has cathetersat home and is capable of using them [...] COLONSCOPY SCREENING HIGH RISK EXCISION HYDROCELE UNILAT 2007 left EXPLORATORY LAPAROTOMY CELIOTOMY W/WO BIOPSY SPX [...] which included preparing to see the patient, asjz-dr-nosl patient care, completing clinical documentation, obtaining and/or reviewing separately obtained history, performing a medically appropriate examination, counseling and educating the pat ient/family/caregiver, ordering medications, tests, or procedures, independently interpreting results (not separately reported), and communicating results to the patient/family/caregiver. Jasmine Saunders PA-C Hematology and Oncology Services Provided at: [place], [place] CC: Suzanne Estrella documented in this encounterCinc[facility]04-05-2024 Miscellaneous Notes* Telephone Encounter - Sherron Singh RN - 01/24/2024 9:49 AM EDT CYCLE 1/DAY 1 POST TREATMENT CALL Today's [...] attention and after hours number protocol. Sherron Singh RN documented in this encounterCinc[facility]04-01-2024 History of Present illness Narrative* Suzanne Grajeda MD - 01/20/2024 2:52 PM EDT Radiation Oncology - On Treatment Review (OTR) [...] prescribed. Suzanne Grajeda MD documented in this encounterCinc[facility]04-01-2024 Nurse Note* Taina Love MA - 02/19/2024 1:21 PM EDT Back office UA test performed. Results entered in [facility] and doctor notified. Taina Loev MA documented in this encounterCinc[facility]04-01-2024 Miscellaneous Notes* Telephone Encounter - Ewa Marshall - 01/20/2024 9:29 AM EDT 1st report of treatment-Benefit investigation complete. Patient is active with Medicare, LOC 80%, $240 deductible has $0 remaining. He carries Plan G [employer] supplement which covers the 20% coinsurance. Estimate shows patient financial responsibility is $0 for each treatment in 2023. until oop max isreached. Called the patient to discuss this but unfortunately his phone just rang and rang. No voicemail option. I will try and connect with him later regarding this. No ben openings at this time but patient should not need since he will be 100% covered. documented in this encounterCinc[facility]04-01-2024 History of Present illness Narrative* Ashlyn Sibley APRN.DESTINY - 01/20/2024 9:10 AM EDT Images from the original note were not included. NAME: Kennedy Kong [facility] NO.: [id number] DATE OF SERVICE: January 20, 2024 (Toñito) (Elements copied from Dr. Chaparro note dated January 02, have been reviewed and updated where appropriate, and all reflect current assessment and medical decision making during today's encounter, January 20, 2024.) Referring Provider: Dr. Leigh Grajeda Additional Clinicians involved in Kennedy Kong's care: Lesa Estrella, Avel Heath, Kylie Dietrich DIAGNOSIS: ASSESSMENT: [...] treated with BCG through 09/2020. 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 He was given Mitomycin-C every 6 months from October 2021 - March 2023. On December 05, 2023, was identified as having oqwy-atcgp-onkqqd invasive papillary bladder cancer and has been [...] the right UVJ. Discrete uroepithelial lesion cannot beexcluded. Prostatomegaly. 04/2023 - Non-STEMI - SOB and chest pain - obtuse marginal branch stented with drug eluting stent 10/23/2021 - 04/11/2023 - Mitomycin C - bladder instillation q 6 months 08/21/2021 - CT A/P: Enlarged left hemiscrotum with heterogenous hyperattenuation centrally and foci or air and fluid peripherally. The differential diagnosis would include testicular fracture versus malignancy. Presenceof air could represent instrumentation or infection. Mildly enlarged heterogenous prostate gland. Di lated small bowel loops with rapid tapering and stool backup along suture lines at the rectosigmoidjunction. 03/24/2021 - Urine, cystoscopic collected: Negative for [...] begin treatment. He starts radiation today. He deniesfevers, chills, night sweats and signs/symptoms of infection. [...] his bladder, worse at night. He has cathetersat home and is capable of using them [...] 16 Ht 5' 10 (1.78m) Wt 186 lb11.7 oz (84.7kg) SpO2 98% BMI 26.79 kg/(m^2). [...] Father Ovarian cancer Sister Colon Cancer Brother Ashlyn Sibley APRN.RECORDS MANAGEMENT CLERK Hematology and Oncology Services Provided at: [place], [place] CC: Suzanne Estrella I spent a total of 30 minutes on the date of the service which included preparing to see the patient, lnss-xr-wtem patient care, completing clinical documentation, obtaining and/or reviewing separately obtained history, performing a medically appropriate examination, counseling and educating the pat ient/family/caregiver, ordering medications, tests, or procedures, independently interpreting results (not separately reported), and communicating results to the patient/family/caregiver. documented in this encounterCinc[facility]03-25-2024 Miscellaneous Notes* Telephone Encounter - Sherron Singh, RN - 01/13/2024 11:56 AM EDT Pt will be here on Saturday for education (Cisplatin). Scripts for antiemetics pended. Sherron Singh, JUSTIN documented in this encounterCinc[facility]03-25-2024 Miscellaneous Notes* Telephone Encounter - Reina May - 01/13/2024 10:15 AM EDT Patient has been scheduled for education w/ Jaimee on Saturday and RV w/ Ashlyn and begin treatment on 01/19 prior to XRT time. Patient's caregiver, Hien notified of all appts. Thank you! Reina May * Telephone Encounter - Eugene Chaparro MD - 01/10/2024 5:32 PM EDT Sure can! * Telephone Encounter - Reina May - 01/09/2024 4:21 PM EDT GENA: You are out this week. Can patient see ANGELA? Reina May * Telephone Encounter - Emeli Genao RN - 01/09/2024 3:48 PM EDT Pt has planned radiation new start on 01/19 and will need chemo coordinated. Can you please arrange for patient? Thank you Emeli Genao, RN documented in this encounterCinc[facility]03-20-2024 History of Present illness Narrative* Leonidas Torres RT(R) - 01/08/2024 11:30 AM EDT Radiology Service Progress Note PATIENT NAME: Kennedy Kong DATE OF SERVICE: January 08, 2024 TIME: 11:15 AM PATIENT IDENTITY VERIFICATION COMPLETED USING TWO (2) IDENTIFIERS: Name and Date of confirmedby patient verbally. FALL SCREENING: Has the patient had 2 falls in the last year or 1 fall with injury or currently using an Ambulatory Assistive Device (Walker, Cane, Wheelchair, Crutches, etc.)? 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 MACHINE OPERATOR: No RADIOLOGY DEPARTMENT: CT; Exam(s) Completed: Chest PERIPHERAL IV DATA: Not applicable SIGNED BY: RT Genny(R) January 08, 2024 11:15 AM documented in this encounterCincinnati [facility]03-20-2024 Nurse Note* Epi Razo LPN - 01/08/2024 10:55 AM EDT Radiation Therapy - Patient Education Note PATIENT NAME: Kennedy Kong PATIENT December 31, 2023 [facility] [place]/LOCATION: [facility] READINESS TO LEARN Cognitive Ability: Alert and [...] and family verbalized understanding of radiation treatments, sideeffects, OTV, and transportation. Follow-up plan: Recommend - Recommend continued instruction and follow up as directed Supplemental material: Informational handouts on Bladder function, Diarrhea, Fatigue, Pelvic handout, Skin changes, and patient education binder. Referral (recommendation): None, Pt denied need for social work, van service, and tone regulator. 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 Electronically Signed Leigh Grajeda M.D. / FELIPE 45:00 PM documented in this encounterCincinnati Children'S [facility]03-15-2024 Instructions* Patient Instructions* Bianca Hardwick - 01/03/2024 12:12 PM EDT Labs today Coordinate care for chemotherapy with Dr. Grajeda documented in this encounterCincinnati Children'S Hospital [facility] Center03-15-2024 History of Present illness Narrative* Eugene Chaparro MD - 01/03/2024 11:15 AM EDT Images from the original note were not included. NAME: Kennedy Kong [facility] NO.: [id number] DATE OF SERVICE: January 03, 2024 (Deann) Referring Provider: Dr. Leigh Grajeda Consultation requested by Dr. Grajeda for an opinion regarding Mr. Kennedy Kong, and my final recommendations will be communicated back to the requesting physician by way of shared medical recordor letter via US mail. Additional Clinicians involved in Kennedy Kong's care: Lesa Estrella, Avel Heath, Kylie Dietrich DIAGNOSIS: ASSESSMENT: [...] treated with BCG through 09/2020. 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 He was given Mitomycin-C every 6 months from October 2021 - March 2023. On December 05, 2023, was identified as having liep-ulygm-wffbcl invasive papillary bladder cancer and has been [...] the right UVJ. Discrete uroepithelial lesion cannot beexcluded. Prostatomegaly. 04/2023 - Non-STEMI - SOB and chest pain - obtuse marginal branch stented with drug eluting stent 10/23/2021 - 04/11/2023 - Mitomycin C - bladder instillation q 6 months 08/21/2021 - CT A/P: Enlarged left hemiscrotum with heterogenous hyperattenuation centrally and foci or air and fluid peripherally. The differential diagnosis would include testicular fracture versus malignancy. Presenceof air could represent instrumentation or infection. Mildly enlarged heterogenous prostate gland. Di lated small bowel loops with rapid tapering and stool backup along suture lines at the rectosigmoidjunction. 03/24/2021 - Urine, cystoscopic collected: Negative for [...] anastomosis Initial Visit, January 03, 2024: Kennedy Kong [...] his bladder, worse at night. He has cathetersat home and is capable of using them [...] 16 Ht 5' 10 (1.78m) Wt 184 lb11.9 oz (83.8kg) SpO2 99% BMI 26.51 kg/(m^2). [...] which included preparing to see the patient, ybah-ug-fzwe patient care, completing clinical documentation, obtaining and/or reviewing separately obtained history, performing a medically appropriate examination, counseling and educating the pat ient/family/caregiver, ordering medications, tests, or procedures, communicating with other HCPs (not separately reported), independently interpreting results (not separately reported), communicatingresults to the patient/family/caregiver, and care coordination (not separately reported). Eugene Chaparro MD, CPE Hematology and Oncology Services Provided at: [place], [place] Scribe Attestation: This note was scribed by Bianca Hardwick on January 03, 2024 under the direction and supervision ofDr. Eugene Chaparro. I attest that all of the information documented is correct to the best of my knowledge. Provider Attestation: I, Eugene Chaparro MD, attest that all information documented by the above scribe is correct, and was supervised by me and under my direction. CC: Suzanne Estrella documented in this encounterCincinnati Children'S [facility] Center03-12-2024 History of Present illness Narrative* Suzanne Grajeda MD - 12/31/2023 8:54 AM EDT Radiation Oncology - New Patient/Consult Note PATIENT [...] cancer. Initially diagnosed in 2019 at that timewith grade 3 disease limited to the lamina propria. He has been through BCG intravesicular therapy and surveillance. 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 Surveillance cystoscopy is negative after that. He did receive mitomycin intravesicular chemotherapy and several occasions 2021. Cystoscopy 11/09/2022 with small suspicious area however FISH negative. Repeat cystoscopy December 2022without evidence of any lesions including any mucosal erythematous areas. He had further mitomycin in March 2023. On 05/14/2023 2 new papillary bladder neck lesions are seen approximately 2 cm each. Patient also with known coronary artery disease, and suffered an AR this past summer, underwent stent placement as [...] COLONSCOPY SCREENING HIGH RISK EXCISION HYDROCELE UNILAT 2007 left EXPLORATORY LAPAROTOMY CELIOTOMY W/WO BIOPSY SPX [...] this. Signed by: Suzanne Grajeda MD cc: Lesa Estrella ([facility]) [address] [place] [id number] Kylie Dietrich [phone] RosenbergAt[facility] [id number] documented in this encounterCincinnati Children'S [facility]03-12-2024 Nurse Note* Epi Razo LPN - 12/31/2023 8:53 AM EDT Pacemaker/Defibrillator?N Previous Cancer(s)?Colon cancer early -sx, chemo, RT and skin cancer-rt nares around 2008, Bladder cancer 2019-BCG Previous Radiation? Y-radiation for colon cancer Lupus/Scleroderma?N On body monitoring device?N documented in this encounterCincinnati Children'S [facility]03-06-2024 Hospital Discharge instructions Follow Up Care 12/25/2023 09:32:29 With:WILY CHOI, Kylie Restrepo, URL Address: [facility] [address] [place] [address]- [phone] When: Unknown [facility] 02-15-2024 Hospital Discharge instructions Patient Education 12/05/2023 13:36:25 [...] light, a tiny camera, and an electric cuttingedge (resectoscope) is passed through the urethra. In men, the opening of the urethra is at the endof the penis. In women, it is just above the opening of the vagina. Tell a health care provider about: Any allergies you have. All medicines you are taking, including vitamins, herbs, eye drops, creams, and soyu-mvq-gkcrjpb medicines. Any problems you or family members [...] provider tells you to take them. Taking tmaa-jvl-nfdjvxc medicines, vitamins, herbs, and supplements. General instructions [...] for at least 4 weeks before the procedure.These products include cigarettes, chewing tobacco, and vaping [...] blood oxygen level will be monitored until youleave the hospital or clinic. You may continue [...] the removal (resection) of a cancerous growth (tumor)on the inside wall of the bladder. To do this procedure, your health care provider uses a thin telescope with a light, a tiny camera, and an electric cutting edge (resectoscope) that is guided to your bladder through your urethra. Thepart of your bladder that is affected by the tumor will be resected by the cutting edge of the resectoscope. A catheter will be passed through your urethra and into your bladder. The catheter will drain urineinto a bag outside of your body. If you will be going home right after the procedure, plan to have a responsible adult take you homefrom the hospital or clinic. You will not be allowed to drive. This information is not intended to replace advice given to you by your health care provider. Make sure you discuss any questions you have with your health care provider. Document Revised: 10/12/2022 Document Reviewed: 10/12/2022 [employer] Patient Education 2022 amazingtunes. 12/05/2023 13:36:01 Saldaña Catheter Care, Male-[employer](CUSTOM) Saldaña Catheter Care, Male A Saldaña catheter [...] because this could sweep bacteria up into theurethra and cause infection. Remove all traces of [...] cotton underwear to absorb moisture and keep air drier. 6. Keep the drainage bag below [...] leg strap. Avoid attaching the new bag tootightly. 7. Place a cap on the drainage [...] [facility] [address] [place] [address]- Business (1) When:12/12/2023 12:47:26 [facility]01-31-2024 History of Present illness Narrative* George Morgan, - 11/20/2023 9:20 AM EST Myra Kong is a 88 y.o. male Chief Complaint Follow-up 88-year-old gentleman returns for follow-up he is doing well he has no cardiovascular complaints orevents nitrate usage. 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 He has a history non-ST elevation AR due to occluded obtuse marginal branch with [...] by mouth once daily at bedtime., Disp: ,Rfl: carvedilol (Coreg) 6.25 mg tablet, Take 1 tablet (6.25 mg) by mouth 2 times a day with meals., Disp: , Rfl: clopidogrel (Plavix) 75 mg tablet, Take 1 tablet (75 mg) by mouth once daily., Disp: , Rfl: tamsulosin (Flomax) 0.4 mg 24 hr capsule, Take 1 capsule (0.4 mg) by mouth once daily., Disp: , Rfl: Assessment/Plan 1. Atherosclerosis of pamunkey coronary artery, unspecified whether angina present, unspecified whether pamunkey or transplanted heart 2. Stented coronary artery 3. Non-ST elevation myocardial infarction (NSTEMI) ([facility]/HCC) 4. Hyperlipidemia, unspecified hyperlipidemia type 5. History of colon cancer 6. Never smoked any substance 7. Malignant neoplasm of urinary bladder, unspecified site ([facility]/HCC) Scribe Attestation By signing my name below, ClarisseRadha LPN , Scribe attest that this documentation has been prepared under the direction and in the presence of Vinay Morgan DO. documented in this encounterUniversity Hospitals Health System Work Phone: 1(229) 501-598401-31-2024 Instructions* Patient Instructions* Lorena Garcia LPN - 11/20/2023 9:20 AM [...] time of your visit. documented in this encounterUniversity Hospitals Health System Work Phone: 1(779) 995-805401-18-2024 Evaluation note* Encounter Date Diagnosis Assessment Notes Treatment Notes Treatment Clinical Notes Oct, Ischemic cardiomyopathy (ICD-10 - I25.5) [...] continue exercise to achieve/maintain a normal BMI. Oct, Sacrococcygeal pilonidal cyst [...] at HS, restarting at first s/s constipation [employer] Other 12-21-2023 Miscellaneous Notes* CDU Provider Note - Sahil Ott MD - 10/10/2023 4:22 PM EST [...] in follow up, our CDU clinical rehabilitation case coordinator will assist the patient with their follow [...] and ambulatory referrals. documented in this encounterU [facility] Progress note* CDU Provider Note - Sahil Ott MD - 10/10/2023 4:22 PM EST [...] in follow up, our CDU clinical rehabilitation case coordinator will assist the patient with their follow [...] discharge summary, prescriptions, and ambulatory referrals. [facility] Work Phone: [phone]) 387-338412-21-2023 Hospital Discharge instructions* Discharge Instructions* SAVANNA Gtz - 10/10/2023 3:46 PM EST Please call GI to schedule a follow-up appointment. Follow-up: Call as soon as possible for an appointment: Gastroenterology Clinic: [phone] documented in this encounterOSMagruder [facility]12-21-2023 Emergency department Note* Tracey Lawrence RN - 10/10/2023 1:59 PM EST Reason for Consult: Keith Documentation Spoke with Kennedy Kong @ 1219 Action Plan: Emergency Department [employer] Adjuster and discussed the Medicare Outpatient Observation Notice (KEITH). Patient's questions answered and they verified understanding. Patient instructed to call Medicare at1-800-MEDICARE ( ) if they have any additional questions. Document signed by patient and Glass Bul[employer] Machine Adjuster. Copy provided for patient. Document scanned to [email or web address] Tracey ANDERSON Emergency Department Clinical Glass [employer] Machine Adjuster [id number] Available via secure chat [facility]12-21-2023 Emergency department Note* Tracey Lawrence RN - 10/10/2023 1:59 PM EST Reason for Consult: Keith Documentation Spoke with Kennedy Kong @ 1219 Action Plan: Emergency Department Glass Bulb Machine Adjuster and discussed the Medicare Outpatient Observation Notice (KEITH). Patient's questions answered and they verified understanding. Patient instructed to call Medicare at1-800-MEDICARE ( ) if they have any additional questions. Document signed by patient and [employer] Bul[employer] Machine Adjuster. Copy provided for patient. Document scanned to [email or web address] Tracey ANDERSON Emergency Department Clinical [employer] Adjuster [id number] Available via secure chat * Bronwyn Schaeffer [...] obstruction Disposition: Observation Unit Patient Kennedy Kong [id number] to be placed in observation unit for [...] note was dictated with the assistance of [employer] dictation software. Attempts were made to proofread [...] Denies abd pain, nausea. documented in this encounterAvita [facility]12-[facility] Physician Emergency department Note* Bronwyn Schaeffer [...] obstruction Disposition: Observation Unit Patient Kennedy Kong [id number] to be placed in observation unit for [...] note was dictated with the assistance of [employer] dictation software. Attempts were made to proofread text, however some errors may still be present. Bronwyn Schaeffer MD Resident 10/10/23 0510 [facility] Work Phone: 1(120) 463-129512-21-2023 Emergency department Note* Dipti Patricia RN - 10/10/2023 1:38 AM EST Bed: E021 Expected date: Expected time: Means of arrival: Comments: triage [facility]12-20-2023 Emergency department Note* Lucy Ibarra RN - 10/09/2023 10:32 PM EST Pt to ED from OSH for SBO. Last BM approx 2 hrs ago, but hadn't fr 7 days prior to that. Vomited this am. Denies abd pain, nausea. 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 [employer] Other 12-15-2023 Evaluation note* Encounter Date Diagnosis [...] or fever. High fiber, low residue diet. [employer] Other 11-15-2023 Evaluation note* Encounter Date Diagnosis [...] - Z90.49) Secondary to IBD, in remission [employer] Other 11-01-2023 Evaluation note* Encounter Date Diagnosis [...] area clean. Duoderm may help protect area [employer] Other 11-01-2023 Evaluation note* Encounter Date Diagnosis Assessment Notes Treatment Notes Treatment Clinical Notes Aug, Pressure injury of sacral region, stage 1 (ICD-10 - L89.151) [employer] Other 10-17-2023 Evaluation note* Encounter Date Diagnosis Assessment Notes Treatment Notes Treatment Clinical Notes Jul, Dysuria (ICD-10 - R30.0) [employer] Other 10-13-2023 Evaluation note* Encounter Date Diagnosis [...] continue Tylenol, hot showers, avoid strenuous activity [employer] Other 09-18-2023 Evaluation note* Encounter Date Diagnosis [...] cancer (ICD-10 - Z85.51) No s/s recurrence [employer] Other 08-18-2023 Evaluation note* Encounter Date Diagnosis Assessment Notes Treatment Notes Treatment Clinical Notes May, Spider bite wound, accidental or unintentional, initial encounter (ICD-10 - T63.301A) May, Generalized muscle ache (ICD-10 - M79.10) May, Adverse reaction to statin medication (ICD-10 - T46.6X5A) May, Elevated cholesterol (ICD-10 - E78.00) [employer] Other 07-13-2023 Evaluation note* Encounter Date Diagnosis Assessment Notes Treatment Notes Treatment Clinical Notes Apr, Tinea pedis of both feet (ICD-10 - B35.3) [employer] Other 07-04-2023 Progress note Author Hang Pedersen [facility] April 23, 2023 9:24am Note Date/Time April 23, 2023 9:20a m [facility] [address] [place] [address] Cardiology Progress Note Signed Patient: Kennedy Kong MR#: [id number] : 1935 Acct:[id number] Age/Sex: 87 / M Adm Date: 3 Loc: Room: [address] [place] [address] Type: ADM IN Attending Dr: Kiki Motta [...] MPV Neut % (Auto) Lymph % (Auto) Cobb % (Auto) Eos % (Auto) Baso % (Auto) Nucleat RBC Rel Count Neut # (Auto) Lymph # (Auto) Cobb # (Auto) Eos # (Auto) Baso # (Auto) PHA Creatinine Clear Sodium Potassium Chloride Carbon Dioxide Anion Gap BUN Creatinine Est GFR (CKD-EPI) Glucose Calcium Troponin I High Sens 68914.8 H* 01706.7 H* 84087.2 H* Triglycerides Cholesterol LDL Cholesterol, Calc VLDL Cholesterol HDL Cholesterol Cholesterol/HDL Ratio 04/22/23 04/23/23 04/23/23 23:35 03:41 03:41 Corrected WBC 8.1 Uncorrected WBC Count 8.1 RBC 4.52 Hgb 13.4 Hct 40.6 MCV 89.8 MCH 29.7 MCHC 33.1 RDW 13.6 Plt Count 215 MPV 6.8 Neut % (Auto) 73.2 Lymph % (Auto) 10.5 Cobb % (Auto) 14.1 Eos % (Auto) 1.5 Baso % (Auto) 0.7 Nucleat RBC Rel Count 0.1 Neut # (Auto) 5.9 Lymph # (Auto) 0.9 L Cobb # (Auto) 1.1 H Eos # (Auto) 0.1 Baso # (Auto) 0.1 PHA Creatinine Clear 55.30 Sodium 137 Potassium 4.5 Chloride 106 Carbon Dioxide 25.0 Anion Gap 10.5 BUN 24 Creatinine 0.99 Est GFR (CKD-EPI) > 60.0 Glucose 110 H Calcium 8.7 Troponin I High Sens 59638.0 H* Triglycerides 97 Cholesterol 148 LDL Cholesterol, Calc 73 VLDL Cholesterol 19 HDL Cholesterol 56 Cholesterol/HDL Ratio 2.6 04/23/23 03:41 Corrected WBC Uncorrected WBC Count RBC Hgb Hct MCV MCH MCHC RDW Plt Count MPV Neut % (Auto) Lymph % (Auto) Cobb % (Auto) Eos % (Auto) Baso % (Auto) Nucleat RBC Rel Count Neut # (Auto) Lymph # (Auto) Cobb # (Auto) Eos # (Auto) Baso # (Auto) PHA Creatinine Clear Sodium Potassium Chloride Carbon Dioxide Anion Gap BUN Creatinine Est GFR (CKD-EPI) Glucose Calcium Troponin I High Sens 63516.2 H* Triglycerides Cholesterol LDL Cholesterol, Calc VLDL [...] Please make sure patient has follow-up in [facility] within 10 days. Pending a favorable clinical [...] <Electronically signed by Hang Pedersen MD> 04/23/23923 [facility] Work Phone: 1(177) 366-599107-03-2023 Consult note Author Ko Morgan [facility] April 22, 2023 12:46pm Note Date/Time April 22, 2023 12:42 pm [facility] [address] [place] [address] Cardiology Consult Note Signed Patient: Kennedy Kong MR#: [id number] : 1935 Acct:[id number] Age/Sex: 87 / M Adm Date: 3 Loc: Room: [address] [place] [address] Type: ADM IN Attending Dr: Kiki Motta MD Copies to: MD Lesa Todd,DO Ko Morgan DO~ Cardiology HPI History of Present Illness Consult Date: 04/22/23 Reason for Consult: Non-ST elevation AR/ACS HPI: Mr. Kong is a 87 year old male seen in interventional cardiology consultation at request of hospitalist and gentleman who was transferred from [place] emergency room after being awakened with chest discomfort at 3 AM this morning. The discomfort radiated to his shoulder, back, left side; finally drove himself to the emergency room, he received 1 sublingual nitroglycerin with relief. Initial high-sensitivity troponin was elevated at 648; initial ECGs revealed sinus rhythm with J-point elevation in the inferolateral leads, however somewhat similar to previous remote ECG at [place] had on record Patient was excepted to the hospitalist service this morning. He did not receive any upstream heparin or antiplatelet therapies, [place] ECG and labs are reviewed there are [...] <Electronically signed by Ko Morgan DO> 04/22/23 2432 [facility] Work Phone: 1(365) 573-199007-03-2023 [facility]07-03-2023 History and physical note Author Kiki Motta [facility] April 22, 2023 11:53am Note Date/Time April 22, 2023 11:10 am [facility] [address] [place] [address] Hospitalist H&P Signed Patient: Kennedy Kong MR#: [id number] : 1935 Acct:[id number] Age/Sex: 87 / M Adm Date: 3 Loc: Room: 5F4608-5 Type: ADM IN Attending Dr: Kiki Motta MD Copies to: MD Lesa Todd,DO~ HPI DATE OF EXAMINATION: 04/22/23 CHIEF [...] negative unless noted below or in HPI [facility] Attestation Statement: The following information was [...] 2 Documented By: Kiki Motta MD 04/22/23 1109 Signed By: <Electronically signed by Kiki Motta MD> 04/22/23 1152 [facility] Work Phone: 1(827) 277-998206-23-2023 Evaluation note* Encounter Date Diagnosis Assessment Notes Treatment Notes Treatment Clinical Notes Mar, Tinea pedis of both feet (ICD-10 - B35.3) Keep dry, cleanse socks daily and open to air at home. Use cream bid and take Lamisil qd x 14 days [employer] Other 04-19-2023 Evaluation note* Encounter Date Diagnosis Assessment Notes Treatment Notes Treatment Clinical Notes Jan, Carbuncle and furuncle of buttock (ICD-10 - L02.33) Warm compresses or warm soak. 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 Avel Heath MD documented in this encounterCincinnati Children'S [facility]03-13-2023 Evaluation note* Encounter Date Diagnosis [...] Diet adjustements to control constipation and diarrhea [facility] [employer] Other 03-09-2023 Evaluation note* Encounter Date Diagnosis Assessment Notes Treatment Notes Treatment Clinical Notes Dec, Anemia, unspecified type (ICD-10 - D64.9) [facility] [employer] Other 03-07-2023 Evaluation note* Encounter Date Diagnosis Assessment Notes Treatment Notes Treatment Clinical Notes Dec, Anemia, unspecified type (ICD-10 - D64.9) [facility] [employer] Other 01-13-2023 Evaluation + Plan note Diagnostic Tests Pending * [facility] Fish [facility] Urine Cyto ([facility]) 11/02/[address] [facility] 08-15-2022 Evaluation + Plan note Diagnostic Tests Pending * [facility] Fish [facility] Urine Cy[facility] ([facility]) 06/04/[address] [facility] 05-13-2022 Evaluation + Plan note Diagnostic Tests Pending * [facility] Fish and Urine Cyto ([facility]) 03/02/22 [facility] 03-21-2022 Evaluation + Plan note Diagnostic Tests Pending * [facility] Fish and Urine Cyto ([facility]) 01/08/[address] [facility] 10-02-1994 Evaluation note* Author [facility] Authored July 21, 2024 2: 11pm 88-year-old man with history of colon cancer s/p colon resection 30 years ago followed by multiple surgeries for adhesion lysis came today for initial visit. Patient reports 1 large bowel movement a week. He also reports recurrent leakage of small fecal material every few hours. He had colon resection 30 years ago that required adhesion lysis surgeries over the last 30 years. He states that he had a colonoscopy with balloon dilation of a stricture [address] enterography on 10/23/2023 showed Moderate stool throughout the colon down to level of the colorectal anastomosis. No colon wall thickening. No adjacent inflammation. Fecal calprotectin is normal. Will provide rifaximin 550 mg 3 times daily for 14 days. I recommended the patient to use MiraLAX and to titrate for goal of 1 bowel movement every 1 to 2 days [facility] Work Phone: Discharge summary Author Kiki Motta [facility] April 23, 2023 11:20am Note Date/Time April 23, 2023 11:20 am [facility] [address] [place] [address] Discharge Summary Signed Patient: Kennedy Kong MR#: [id number] : 1935 Acct:[id number] Age/Sex: 87 / M Adm Date: 3 Loc: Room: [address] [place] [address]: Kiki Motta MD Copies to: MD Lesa Todd,DO~ Providers Date of Discharge: 04/23/23 Discharging Provider: Kiki Motta Primary [facility] Provider: Lesa Estrella Consults: 04/22/23 13:56 Consult to Cardiac [...] discharge: 04/23/23 03:41: Troponin I High Sens 33921.2 H* 04/23/23 03:41: PHA Creatinine Clear 55.30, [...] % (Auto) 73.2, Lymph % (Auto) 10.5, Cobb % (Auto) 14.1, Eos % (Auto) 1.5, Baso % (Auto) 0.7, Nucleat RBC Rel Count 0.1, Neut # (Auto) 5.9, Lymph # (Auto) 0.9 L, Cobb # (Auto) 1.1 H, Eos # (Auto) 0.1, Baso # (Auto) 0.1 04/22/23 23:35: Troponin I High Sens 29732.0 H* 04/22/23 20:04: Troponin I High Sens 83142.2 H* 04/22/23 17:07: Troponin I High Sens 35485.7 H* 04/22/23 14:25: Troponin I High Sens 23840.8 H* Exam Physical Exam Vital Signs: Temp [...] doctor or pharmacist, without first calling the family consultant who implanted the stent. If you [...] weight lifting, stair steppers, etc. until the family consultant approves these activities. Check with the family consultant on your first follow-up visit. CALL YOUR PHYSICIAN at [phone]: -If bleeding should occur from the catheter insertion site- apply pressure to the site then immediately call us. -Report any fever, redness, drainage, increased swelling, or firmness at the catheter insertion site. Some bruising or slight swelling may be present at the time of discharge. -Should arm or leg become cold, numb, white, or blue, contact the family consultant immediately. -IF you should experience episodes [...] is recommended. Please call Central Scheduling at [phone] to schedule your appointment.] The attending family consultant or [facility] nurse clinician should provide you with specific instructions regarding activity, diet, medications, and further follow up for you. Follow the medication instructions provided on your discharge. If the dosages and instructions on this sheet differ from the dosage and instructions on the bottle, follow the instructions on the bottle. [facility] is not responsible for incorrect prescription [...] MD> 04/23/23 1120 [facility] Work Phone: Evaluation + Plan note Future Appointments Appointment Date:12/10/2023 09:00:00 AM Scheduled Provider: Location:[facility] Appointment Type:URO Nurse Visit Appointment Date:12/16/2023 09:15:00 AM Scheduled Provider:Kylie DIETRICH MD Location:[facility] Future Appointments Appointment Date:04/20/2024 01:30:00 PM Scheduled Provider:Kylie DIETRICH MD Location:[facility] Appointment Type:URO Office Visit [facility] evaluation + Plan note Future Appointments Appointment Date:04/20/2024 01:30:00 PM Scheduled Provider:Kylie DIETRCIH MD Location:[facility] Appointment Type:URO Office Visit Diagnostic Tests Pending * Urine Culture [facility] Future Appointments Appointment Date:06/14/2025 08:30:00 AM Scheduled Provider:Kylie DIETRICH MD Location:[facility] Appointment Type:URO Procedure 15 min [facility] evaluation noteNo [employer] Other Evaluation note* Diagnosis Irregular bowel habits- Primary Other specified disorder of intestines documented in this encounter [facility] note* Diagnosis Onset Date Resolution Status Colon cancer acute Essential hypertension acute NSTEMI (non-ST elevated myocardial infarction) acute [facility] Work Phone: Evaluation note* Diagnosis Small bowel obstruction- Primary Unspecified intestinal obstruction Abdominal pain, generalized [facility] Work Phone: Evaluation note* Diagnosis Atherosclerosis of pamunkey coronary artery, unspecified whether angina present, unspecified whether pamunkey or transplanted heart 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 Non-ST elevation myocardial infarction (NSTEMI) (CMS/HCC) Acute myocardial infarction, subendocardial infarction, episode of care unspecified Hyperlipidemia, unspecified hyperlipidemia type History of colon cancer Personal history of malignant neoplasm of large intestine Never smoked any substance Malignant neoplasm of urinary bladder, unspecified site (CMS/HCC) documented in this encounter [facility] Work Phone: Evaluation note* Diagnosis 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 [facility] Diagnosis 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 [facility] Diagnosis 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 [facility] Diagnosis 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 [facility]* Diagnosis 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 [facility] Diagnosis 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 [facility] Diagnosis 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 [facility] Diagnosis 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 [facility] Diagnosis 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 [facility] Diagnosis Malignant neoplasm of trigone [...] [facility] Other urinary incontinence- Primary [facility] Diagnosis 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 [facility] Diagnosis 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 Edema leg Edema [facility] [...] of other medications [facility] Diagnosis Dysuria- Primary [facility] Diagnosis 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 High risk medications (not anticoagulants) long-term use Encounter for long-term (current) use of other medications [facility] Diagnosis 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 [facility] Diagnosis Malignant neoplasm of trigone [...] of urinary bladder [facility] 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 [facility] Diagnosis Onset Date Resolution Status Benign prostatic hyperplasia with lower urinary tract symptoms acute Chronic HFrEF (heart failure with reduced ejection fraction) acute Chronic venous insufficiency acute Constipation, chronic acute Ischemic cardiomyopathy acut e Papillary adenocarcinoma of bladder acute [facility] Work Phone: Evaluation note* Diagnosis 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 Anemia, unspecified type [facility] Diagnosis 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 [facility] Diagnosis Malignant neoplasm of urinary bladder, unspecified site (HCC) [facility] Diagnosis 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 [facility] Diagnosis Malignant neoplasm of urinary bladder, unspecified site (HCC)- Primary Lung nodules Other nonspecific abnormal finding of lung field Stage 3a chronic kidney disease (HCC) [facility] Diagnosis Malignant neoplasm of urinary bladder, unspecified site (HCC)- Primary Lung nodules Other nonspecific abnormal finding of lung field Stage 3a chronic kidney disease (HCC) Anemia, unspecified type Malignant neoplasm of overlapping sites of bladder (HCC) Malignant neoplasm of other specified sites of bladder [facility] Diagnosis Malignant neoplasm of urinary bladder, unspecified site (HCC) Lung nodules Other nonspecific abnormal finding of lung field [facility] Diagnosis Mixed hyperlipidemia- Primary Atherosclerosis of pamunkey coronary artery, unspecified whether angina present, unspecified whether pamunkey or transplanted heart Essential (primary) hypertension Unspecified essential hypertension BMI 27.0-27.9,adult Localized edema Edema documented in this encounter [facility] Work Phone: Evaluation note* Diagnosis BMI 26.0-26.9,adult- Primary Localized edema Edema documented in this encounter [facility] Work Phone: Evaluation note* Diagnosis Malignant neoplasm of urinary bladder, unspecified site (HCC) Lung nodules Other nonspecific abnormal finding of lung field Stage 3a chronic kidney disease (HCC) Anemia, unspecified type Malignant neoplasm of overlapping sites of bladder (HCC) Malignant neoplasm of other specified sites of bladder documented [facility]* Diagnosis 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 [facility]* Diagnosis Malignant neoplasm of overlapping sites of bladder (HCC)- Primary Malignant neoplasm of other specified sites of bladder Pulmonary nodule, left Solitary pulmonary nodule 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 Personal history of malignant neoplasm of bladder Acquired absence of organ, urinary bladder Acquired absence of organ, other parts of urinary tract documented in this encounter [facility] general Narrative - Reported* Type Description Date [...] History Cystoscopy 12/2022 Hospitalization History see above [employer] Other History general Narrative - Reported* Type [...] the LCx 04/2023 Hospitalization History see above [employer] Other History general Narrative - Reported* Type [...] the LCx 04/2023 Hospitalization History see above [employer] Other Hospital course Narrative No data available for this section [facility] Hospital Discharge instructions No data available for this section [facility] Hospital Discharge instructions Additional Instructions DISCHARGE [...] doctor or pharmacist, without first calling the family consultant who implanted the stent. If you [...] weight lifting, stair steppers, etc. until the family consultant approves these activities. Check with the family consultant on your first follow-up visit. CALL YOUR PHYSICIAN at [phone]: -If bleeding should occur from the catheter insertion site- apply pressure to the site then immediately call us. -Report any fever, redness, drainage, increased swelling, or firmness at the catheter insertion site. Some bruising or slight swelling may be present at the time of discharge. -Should arm or leg become cold, numb, white, or blue, contact the family consultant immediately. -IF you should experience episodes [...] is recommended. Please call Central Scheduling at [phone] to schedule your appointment.] The attending family consultant or [facility] nurse clinician should provide you with specific instructions regarding activity, diet, medications, and further follow up for you. Follow the medication instructions provided on your discharge. If the dosages and instructions on this sheet differ from the dosage and instructions on the bottle, follow the instructions on the bottle. [facility] is not responsible for incorrect prescription information provided by the patient during their visit. Do not stop your medications without consulting your health care provider. Please take the list with you to your next doctor's appointment.[facility] Work Phone: Progress note No data available for this section [facility] reason for referral (narrative)* Consultation (Routine) - New Request Specialty Diagnoses / Procedures Referred By Mart hale Referred To Contact Gastroenterology Diagnoses Small bowel obstruction Abdominal pain, generalized Seferino Han APRN-RECORDS MANAGEMENT CLERK [address] [place] [id number] Referral ID Status Reason Start Date Expiration Date V isits Requested Visits Authorized [id number] New Request 10/10/2023 11/03/2024 1 1 [facility] for referral (narrative)* Consultation (Routine) - Authorized Specialty Diagnoses / Procedures Referred By Mart hale Referred To Contact Cardiology Diagnoses Atherosclerosis of pamunkey coronary artery, unspecified whether angina present, unspecified whether pamunkey or transplanted heart Stented coronary artery Non-ST elevation myocardial infarction (NSTEMI) ([facility]) Procedures Follow Up In Cardiology George Morgan DO [address] [facility] [place] [address] George Morgan DO [address] [place] [address] Referral ID Status Reason Start Date Expiration Date V isits Requested Visits Authorized [id number] Authorized 11/20/2023 11/19/2024 1 1 [facility] Work Phone: Reason for referral (narrative)* Diagnostic Procedure Only (Routine) - Pending Review Specialty Diagnoses / Procedures Referred By Mart hale Referred To Contact US IMAGING Diagnoses 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) Edema leg Procedures US DVT LOWER BILATERAL DUP-SCAN XTR VEINS COMPLETE BILATERAL STUDY Suzanne Grajeda MD [address] [place] [address] [place] [address] [place] [address] Referral ID Status Reason Start Date Expiration Date Visits Requested Visits Authorized [id number] Pending Review Auto-Generat ed Referral 02/17/2024 03/18/2025 1 1 [facility] for visit Narrative* Auth/Cert Specialty Diagnoses / Procedures Referred By Mart hale Referred To Contact Diagnoses Bowel Obstruction Sahil Camacho MD [address] [place] [address] [facility] [address] [place] [address] Referral ID Status Reason Start Date Expiration Date Visits Re quested Visits Authorized [id number] 1 1 [facility] Summary Purpose Family History No Family [...] Heart disease Unknown History of stroke Unknown Relationship Condition Age at Onset Recorded Date/T ayden father Malignant neoplasm of colon Unknown Unknown Malignant neoplasm Unknown brother Unknown mother Heart disease Unknown History of stroke Unknown Advance Directives No Advanced Directives Records Found Advance Directive Response Recorded Date/ Time Advance Directives No May 06 10:25am Latest Code Status on File Code Status Date Activated Date Inactivated Comments Full Code 11/04/2022 2:12 AM Advance Directive Response Recorded Date/ Time Advance Directives No May 06 9:25am Procedure Findings Note MR#: [id number] [facility] Pt. Name: Kennedy Kong Surgery Date: [...] (more content not included)... Note MR#: [id number] [facility] Pt. Name: Kennedy Kong Surgery Date: 04/16/2019 Room #: Z0 Date of : 1935 PROCEDURE NOTE ATTENDING: Gabriel Perez M.D. SAND CUTTING MACHINE OPERATOR: Theresa Lopez M.D. 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 Constipation, chronic Chief Complaint Admit Date CC Adult Risk Stratification September 152023 11:34am Wellness September 21, 2024 9 :48am Unknown November 23, 2024 8 :55am Reason for Visit Admit Date Benign prostatic hyperplasia with lower urinary tract symptoms September 21, 2024 9:48am Chronic HFrEF (heart failure with reduced ejection fraction) September 21, 2024 9:48am Chronic venous insufficiency September 9:48am Constipation, chronic September 21, 2024 9:48am Ischemic cardiomyopathy September 21 9:48am Medicare annual wellness visit, subseque nt September 21, 2024 9:48am Papillary adenocarcinoma of bladder Dece 2023 9:48am Chief Complaint Admit Date Adult Risk Stratification September 152023 11:34am Wellness September 21, 2024 9 :48am Unknown November 23, 2024 8 :55am sinus pressure, headache December 08, 2024 1:30pm Chief Complaint Admit Date Unknown November 23, 2024 8 :55am sinus pressure, headache December 08, 2024 1:30pm URI January 08, 2025 8:4 8am Reason for Visit Admit Date Ischemic cardiomyopathy December 08, 2 025 1:30pm Allergic rhinitis December 08, 2024 1:30pm Allergic contact dermatitis January 08, 2025 8:48am Acute bronchitis due to Mycoplasma pneum oniae January 08, 2025 8:48am Chief Complaint Admit Date URI January 08, 2025 8:4 8am rule of dvt March 16, 2025 2:18p m Reason for Visit Admit Date Allergic contact dermatitis January 08, 2025 8:48am Acute bronchitis due to Mycoplasma pneum oniae January 08, 2025 8:48am Chief Complaint Admit Date URI January 08, 2025 8:4 8am rule of dvt March 16, 2025 2:18p m 6 month f/u March 23, 2025 9:59a m Reason for Visit Admit Date Allergic contact dermatitis January 08, 2025 8:48am Acute bronchitis due to Mycoplasma pneum oniae January 08, 2025 8:48am Benign prostatic hyperplasia with lower urinary tract symptoms March 23, 2025 9:59am Chronic HFrEF (heart failure with reduce d ejection fraction) March 23, 2025 9:59am Chronic venous insufficiency March 23, 025 9:59am Constipation, chronic March 23, 2025 9:5 9am Ischemic cardiomyopathy March 23, 2025 9 :59am Papillary adenocarcinoma of bladder March 23, 2025 9:59am Chief Complaint * KENNEDY KONG is being seen for follow-up of a hospitalization for STEMI/PCI. * Patient is an 87-year-old gentleman who returns following recent non-ST elevation AR due to occluded obtuse marginal branch with primary revascularization with drug-eluting stent and is doing well. He has mild LV dysfunction, No significant coronary disease, ejection fraction of 45%. 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) Procedures CONSULT TO ONCOLOGY OFFICE/OUTPATIENT [facility] 60 MINUTES Suzanne Grajeda MD [address] [place] [address] [place] [address] Referral ID Status Reason Start Date Expiration Date V isits Requested Visits Authorized [id number] Closed PCP Requested Referral 12/31/2023 12/30/2024 1 1 Specialty Diagnoses / Procedures Referred By Contac t Referred To Contact CT IMAGING Diagnoses 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) Procedures CT CHEST WO IVCON DIAGNOSTIC COMPUTED TOMOGRAPHY THORAX W/O CNTRST Suzanne Grajeda MD [address] [place] [address] [place] [address] [place] [address] Referral ID Status Reason Start Date Expiration Date V isits Requested Visits Authorized [id number] Closed Auto-Generate d Referral 12/31/2023 01/29/2025 1 [...] section and content) DATE CREATED AUTHOR 04/16/2018 [facility] DATE CREATED AUTHOR AUTHOR'S ORGANIZ ATION 04/25/2019 [facility] DATE CREATED AUTHOR AUTHOR'S ORGANIZ ATION 11/04/2019 [facility] DATE CREATED AUTHOR AUTHOR'S ORGANIZ ATION 12/28/2022 [facility] DATE CREATED AUTHOR AUTHOR'S ORGANIZ ATION 01/23/2023 [facility] DATE CREATED AUTHOR AUTHOR'S ORGANIZ ATION 05/03/2023 [facility] DATE CREATED AUTHOR AUTHOR'S ORGANIZ ATION 06/27/2023 [facility] DATE CREATED AUTHOR AUTHOR'S ORGANIZ ATION 09/17/2023 [facility] DATE CREATED AUTHOR AUTHOR'S ORGANIZ ATION 03/08/2024 [facility] DATE CREATED AUTHOR AUTHOR'S ORGANIZ ATION 11/02/2024 [facility] DATE CREATED AUTHOR AUTHOR'S ORGANIZ ATION 03/28/2025 [facility] DATE CREATED AUTHOR AUTHOR'S ORGANIZ ATION 04/03/2025 [facility] DATE CREATED AUTHOR AUTHOR'S ORGANIZ ATION 04/04/2025 Pranay Lucero [facility] Center DATE CREATED AUTHOR AUTHOR'S ORGANIZ ATION 04/18/2025 [facility] DATE CREATED AUTHOR AUTHOR'S ORGANIZ ATION 05/24/2025 [facility] Care Team (unrecognized sect ion and content) Team Status: Active Member Role Status Dates Lesa Estrella , DO Primary Care Provider Active Team Status: Inactive Member Role Status Dates Kylie Dietrich MD Attending Provider Active St art: November 23, 2024 End: November 23, 2024 Team Status: Inactive Member Role Status Dates Lesa Estrella DO Primary Care Provide r, Attending Provider Active Start: December 08, 2024 End: December 08, 2024 Team Status: Inactive Member Role Status Dates Lesa Estrella DO Primary Care Provide r, Attending Provider Active Start: January 08, 2025 End: January 08, 2025 Team Status: Active Member Role Status Dates Lesa Estrella DO Primary Care Provider Active Start: May 25, 2024 Ko Morgan , DO Attending Provider Active S tart: May 25, 2024 Team Status: Inactive Member Role Status Dates Lesa Estrella DO Primary Care Provide r, Attending Provider Active Start: June 08, 2024 End: June 08, 2024 Team Status: Active Member Role Status Senthil Estrella DO Primary Care Provide r, Attending Provider Active Start: June 11, 2024 Team Status: Active Member Role Status Senthil Estrella DO Primary Care Provider Active Start: July 01, 2024 Eugene Chaparro MD Attending Provider Active Start: July 01, 2024 Team Status: Inactive Member Role Status Dates Lesa Estrella DO Primary Care Provider Active Start: July 21, 2024 End: July 21, 2024 Zofia Gates MD Attending Provider Active Start: July 21, 2024 End: July 21, 2024 Team Status: Inactive Member Role Status Dates Lesa Estrella DO Primary Care Provide r, Attending Provider Active Start: March 19, 2024 End: March 19, 2024 Team Status: Active Member Role Status Dates Lesa Estrella DO Primary Care Provider Active Start: March 25, 2024 Eugene Chaparro MD Attending Provider Active Start: March 25, 2024 Team Status: Active Member Role Status Senthil Estrella DO Primary Care Provide r, Attending Provider Active Start: January 03, 2024 Team Status: Active Member Role Status Dates Lesa Estrella DO Primary Care Provide r, Attending Provider Active Start: January 20, 2024 Team Status: Active Member Role Status Dates Lesa Estrella DO Primary Care Provide r, Attending Provider Active Start: January 28, 2024 Team Status: Inactive Member Role Status Dates Lesa Estrella DO Primary Care Provide r, Attending Provider Active Start: January 31, 2024 End: January 31, 2024 Team Status: Active Member Role Status Dates Lesa Estrella DO Primary Care Provide r, Attending Provider Active Start: February 04, 2024 Team Status: Active Member Role Status Dates Lesa Estrella DO Primary Care Provider Active Start: February 06, 2024 Eugene Chaparro MD Attending Provider Active Start: February 06, 2024 Team Status: Active Member Role Status Senthil Estrella DO Primary Care Provider Active Start: February 12, 2024 Eugene Chaparro MD Attending Provider Active Start: February 12, 2024 Team Status: Active Member Role Status Senthil Estrella DO Primary Care Provider Active Start: February 19, 2024 Eugene Chaparro MD Attending Provider Active Start: February 19, 2024 Team Status: Active Member Role Status Dates Lesa Estrella DO Primary Care Provider Active Start: February 26, 2024 Eugene Chaparro MD Attending Provider Active Start: February 26, 2024 Information Management Manager Relationship Specialty Start Date End Date Sameer Lesa Boston PCP - General Internal Medicine 01/16/12 Team Status: Inactive Member Role Status Dates Lesa Estrella DO Primary Care Provider Active Kiki Motta MD Admit Provider, Attending Provider A ctive Grace West MD Other Provider Active Raheem Giles MD Other Provider Active Kimberly Skinner MD Other Provider Active George Lay MD Other Provider Active Rashida Gould RN Other Provider Active Peyton Norman MD Other Provider Active Misty Rothman [facility]- Other Provider Active Endy Arevalo MD Other Provider Active Lucio Dillon MD Other Provider Active Ko Morgan DO Other Provider Active Theodora Love APRN Other Provider Active Hannah Abraham MD Other Provider Active Information Management Manager Relationship Specialty Start Date End Date Jimmy Estrella MD [address] [place] [facility] [place] [id number] PCP - General Family Medicine 11/03/22 Team Status: Inactive Member Role Status Dates Lesa Estrella DO Primary Care Provider Active Zofia Gates MD Attending Provider Active Information Management Manager Relationship Specialty Start Date End Date Lesa Estrella DO [address] [facility] [place] [place] [id number] PCP - General Internal Medicine 11/20/23 Information Management Manager Relationship Specialty Start Date End Date Jimmy Estrella MD [address] [place] [id number] PCP - General Family Medicine 11/03/22 Information Management Manager Relationship Specialty Start Date End Date Lesa Estrella DO PCP - General Internal Medicine 01/16/12 Information Management Manager Relationship Specialty Start Date End Date Lesa Estrella DO PCP - General Internal Medicine 01/16/12 Information Management Manager Relationship Specialty Start Date End Date Lesa Estrella DO PCP - General Internal Medicine 01/16/12 Information Management Manager Relationship Specialty Start Date End Date Lesa Estrella DO PCP - General Internal Medicine 01/16/12 Information Management Manager Relationship Specialty Start Date End Date Lesa Estrella DO PCP - General Internal Medicine 01/16/12 Information Management Manager Relationship Specialty Start Date End Date Lesa Estrella DO PCP - General Internal Medicine 01/16/12 Eugene Chaparro MD [address] [place] [address] Physician Hematology/Oncology 01/13/24 Suzanne Grajeda MD [address] [facility] [address] Physician Radiation Oncology 01/13/24 Ashlyn Sibley, ASPHALT COATER.RECORDS MANAGEMENT CLERK [address] [facility] [address] Nurse Practitioner Hematology/Oncology 01/13/24 Sherron Singh, JUSTIN [address] [place] [address] Specialty Disc Sander Hematology/Oncology 01/13/24 Information Management Manager Relationship Specialty Start Date End Date Lesa Estrella DO PCP - General Internal Medicine 01/16/12 Information Management Manager Relationship Specialty Start Date End Date Lesa Estrella DO PCP - General Internal Medicine 01/16/12 Eugene Chaparro MD [address] [facility] [address] Physician Hematology/Oncology 01/13/24 Suzanne Grajeda MD [address] [facility] [address] Physician Radiation Oncology 01/13/24 Ashlyn Sibley, ASPHALT COATER.RECORDS MANAGEMENT CLERK [address] [place] [address] Nurse Practitioner Hematology/Oncology 01/13/24 Sherron Singh, JUSTIN [address] [place] [address] Specialty Disc Sander Hematology/Oncology 01/13/24 Information Management Manager Relationship Specialty Start Date End Date Lesa Estrella DO PCP - General Internal Medicine 01/16/12 Eugene Chaparro MD [address] [place] [address] Physician Hematology/Oncology 01/13/24 Suzanne Grajeda MD [address] [place] [address] Physician Radiation Oncology 01/13/24 Ashlyn Sibley APRN.RECORDS MANAGEMENT CLERK [address] [place] [address] Nurse Practitioner Hematology/Oncology 01/13/24 Sherron Singh, JUSTIN [address] [place] [address] Specialty Disc Sander Hematology/Oncology 01/13/24 Information Management Manager Relationship Specialty Start Date End Date Lesa Estrella DO PCP - General Internal Medicine 01/16/12 Eugene Chaparro MD [address] [place] [address] Physician Hematology/Oncology 01/13/24 Suzanne Grajeda MD [address] [place] [address] Physician Radiation Oncology 01/13/24 Ashlyn Sibley, ASPHALT COATER.RECORDS MANAGEMENT CLERK [address] [place] [address] Nurse Practitioner Hematology/Oncology 01/13/24 Sherron Singh, JUSTIN [address] [place] [address] Specialty Disc Sander Hematology/Oncology 01/13/24 Information Management Manager Relationship Specialty Start Date End Date Lesa Estrella DO PCP - General Internal Medicine 01/16/12 Eugene Chaparro MD [address] [facility] [address] Physician Hematology/Oncology 01/13/24 Suzanne Grajeda MD [address] [facility] [address] Physician Radiation Oncology 01/13/24 Ashlyn Sibley, ASPHALT COATER.RECORDS MANAGEMENT CLERK [address] [facility] [address] Nurse Practitioner Hematology/Oncology 01/13/24 Sherron Singh RN [address] [place] [address] Specialty Disc Sander Hematology/Oncology 01/13/24 Information Management Manager Relationship Specialty Start Date End Date Lesa Estrella DO PCP - General Internal Medicine 01/16/12 Eugene Chaparro MD [address] [place] [address] Physician Hematology/Oncology 01/13/24 Suzanne Grajeda MD [address] [facility] [place] [address] Physician Radiation Oncology 01/13/24 Ashlyn Sibley, ASPHALT COATER.RECORDS MANAGEMENT CLERK [address] [facility] [place] [address] Nurse Practitioner Hematology/Oncology 01/13/24 Sherron Singh, JUSTIN [address] [place] [address] Specialty Disc Sander Hematology/Oncology 01/13/24 Information Management Manager Relationship Specialty Start Date End Date Lesa Estrella DO PCP - General Internal Medicine 01/16/12 Eugene Chaparro MD [address] [place] [address] Physician Hematology/Oncology 01/13/24 Suzanne Grajeda MD [address] [place] [address] Physician Radiation Oncology 01/13/24 Ashlyn Sibley, ASPHALT COATER.RECORDS MANAGEMENT CLERK [address] [place] [address] Nurse Practitioner Hematology/Oncology 01/13/24 Sherron Singh, JUSTIN [address] [place] [address] Specialty Disc Sander Hematology/Oncology 01/13/24 Information Management Manager Relationship Specialty Start Date End Date Lesa Estrella DO PCP - General Internal Medicine 01/16/12 Eugene Chaparro MD [address] [place] [address] [place] [address] Physician Hematology/Oncology 01/13/24 Suzanne Grajeda MD [address] [place] [address] [place] [address] Physician Radiation Oncology 01/13/24 Ashlyn Sibley APRN.[facility] [address] [place] [address] [place] [address] Nurse Practitioner Hematology/Oncology 01/13/24 Sherron Singh, JUSTIN [address] [place] [address] [place] [address] Specialty Disc Sander Hematology/Oncology 01/13/24 Team Status: Inactive Member Role Status Dates Lesa Estrella DO Attending Provider Active Sta rt: November 07, 2023 End: November 07, 2023 Team Status: Active Member Role Status Dates Lesa Estrella DO Primary Care Provide r, Attending Provider Active Start: December 14, 2023 Team Status: Active Member Role Status Dates Lesa Estrella DO Primary Care Provide r, Attending Provider Active Start: December 17, 2023 Information Management Manager Relationship Specialty Start Date End Date Lesa Estrella DO PCP - General Internal Medicine 01/16/12 Eugene Chaparro MD [address] [place] [address] [place] [address] Physician Hematology/Oncology 01/13/24 Suzanne Grajeda MD [address] [place] [address] [place] [address] Physician Radiation Oncology 01/13/24 Ashlyn Sibley, ASPHALT COATER.RECORDS MANAGEMENT CLERK [address] [place] [address] Nurse Practitioner Hematology/Oncology 01/13/24 Sherron Singh, JUSTIN [address] [facility] [address] Specialty Disc Sander Hematology/Oncology 01/13/24 Jana Pierre LSW Strainer Cleaner 02/03/24 Information Management Manager Relationship Specialty Start Date End Date Lesa Estrella DO PCP - General Internal Medicine 01/16/12 Eugene Chaparro MD [address] [facility] [address] Physician Hematology/Oncology 01/13/24 Suzanne Grajeda MD [address] [facility] [address] Physician Radiation Oncology 01/13/24 Ashlyn Sibley, ASPHALT COATER.RECORDS MANAGEMENT CLERK [address] [facility] [address] Nurse Practitioner Hematology/Oncology 01/13/24 Sherron Singh, JUSTIN [address] [place] [address] Specialty Disc Sander Hematology/Oncology 01/13/24 Information Management Manager Relationship Specialty Start Date End Date Lesa Estrella DO PCP - General Internal Medicine 01/16/12 Eugene Chaparro MD [address] [place] [address] Physician Hematology/Oncology 01/13/24 Suzanne Grajeda MD [address] [place] [address] Physician Radiation Oncology 01/13/24 Ashlyn Sibley, ASPHALT COATER.RECORDS MANAGEMENT CLERK [address] [place] [address] Nurse Practitioner Hematology/Oncology 01/13/24 Sherron Singh, JUSTIN [address] [place] [address] Specialty Disc Sander Hematology/Oncology 01/13/24 Jana Pierre LSW Strainer Cleaner 02/03/24 Information Management Manager Relationship Specialty Start Date End Date Lesa Estrella DO PCP - General Internal Medicine 01/16/12 Eugene Chaparro MD [address] [place] [address] Physician Hematology/Oncology 01/13/24 Suzanne Grajeda MD [address] [place] [address] [place] [address] Physician Radiation Oncology 01/13/24 Ashlyn Sibley, ASPHALT COATER.RECORDS MANAGEMENT CLERK [address] [place] [address] Nurse Practitioner Hematology/Oncology 01/13/24 Sherron Singh, JUSTIN [address] [place] [address] Specialty Disc Sander Hematology/Oncology 01/13/24 Jana Pierre LSW Strainer Cleaner 02/03/24 Information Management Manager Relationship Specialty Start Date End Date Lesa Estrella DO PCP - General Internal Medicine 01/16/12 Eugene Chaparro MD [address] [place] [address] Physician Hematology/Oncology 01/13/24 Suzanne Grajeda MD [address] [place] [address] Physician Radiation Oncology 01/13/24 Ashlyn Sibley, ASPHALT COATER.RECORDS MANAGEMENT CLERK [address] [place] [address] Nurse Practitioner Hematology/Oncology 01/13/24 Sherron Singh, JUSTIN [address] [place] [address] Specialty Disc Sander Hematology/Oncology 01/13/24 Jana Pierre LSW Strainer Cleaner 02/03/24 Information Management Manager Relationship Specialty Start Date End Date Lesa Estrella DO PCP - General Internal Medicine 01/16/12 Eugene Chaparro MD [address] [place] [address] Physician Hematology/Oncology 01/13/24 Suzanne Grajeda MD [address] [place] [address] Physician Radiation Oncology 01/13/24 Ashlyn Sibley, ASPHALT COATER.RECORDS MANAGEMENT CLERK [address] [place] [address] Nurse Practitioner Hematology/Oncology 01/13/24 Sherron Singh, JUSTIN [address] [place] [address] Specialty Disc Sander Hematology/Oncology 01/13/24 Jana Pierre LSW Strainer Cleaner 02/03/24 Information Management Manager Relationship Specialty Start Date End Date Lesa Estrella DO PCP - General Internal Medicine 01/16/12 Eugene Chaparro MD [address] [place] [address] Physician Hematology/Oncology 01/13/24 Suzanne Grajeda MD [address] [place] [address] Physician Radiation Oncology 01/13/24 Ashlyn Sibley APRN.RECORDS MANAGEMENT CLERK [address] [place] [address] Nurse Practitioner Hematology/Oncology 01/13/24 Sherron Singh, JUSTIN [address] [place] [address] Specialty Disc Sander Hematology/Oncology 01/13/24 Jana Pierre LSW Strainer Cleaner 02/03/24 Information Management Manager Relationship Specialty Start Date End Date Lesa Estrella DO PCP - General Internal Medicine 01/16/12 Eugene Chaparro MD [address] [place] [address] Physician Hematology/Oncology 01/13/24 Suzanne Grajeda MD [address] [place] [address] Physician Radiation Oncology 01/13/24 Ashlyn Sibley, ASPHALT COATER.RECORDS MANAGEMENT CLERK [address] [place] [address] Nurse Practitioner Hematology/Oncology 01/13/24 Sherron Singh, JUSTIN [address] [place] [address] Specialty Disc Sander Hematology/Oncology 01/13/24 Jana Pierre LSW Strainer Cleaner 02/03/24 Information Management Manager Relationship Specialty Start Date End Date Lesa Estrella DO PCP - General Internal Medicine 01/16/12 Eugene Chaparro MD [address] [place] [address] Physician Hematology/Oncology 01/13/24 Suzanne Grajeda MD [address] [place] [address] Physician Radiation Oncology 01/13/24 Ashlyn Sbiley, ASPHALT COATER.RECORDS MANAGEMENT CLERK [address] [place] [address] Nurse Practitioner Hematology/Oncology 01/13/24 Sherron Singh, JUSTIN [address] [place] [address] Specialty Disc Sander Hematology/Oncology 01/13/24 Jana Pierre LSW Strainer Cleaner 02/03/24 Information Management Manager Relationship Specialty Start Date End Date Lesa Estrella DO PCP - General Internal Medicine 01/16/12 Eugene Chaparro MD [address] [place] [address] Physician Hematology/Oncology 01/13/24 Suzanne Grajeda MD [address] [place] [address] Physician Radiation Oncology 01/13/24 Ashlyn Sibley, ASPHALT COATER.RECORDS MANAGEMENT CLERK [address] [place] [address] Nurse Practitioner Hematology/Oncology 01/13/24 Sherron Singh, JUSTIN [address] [place] [address] Specialty Disc Sander Hematology/Oncology 01/13/24 Jana Pierre LSW Strainer Cleaner 02/03/24 Information Management Manager Relationship Specialty Start Date End Date Lesa Estrella DO PCP - General Internal Medicine 01/16/12 Eugene Chaparro MD [address] [place] [address] Physician Hematology/Oncology 01/13/24 Suzanne Grajeda MD [address] [place] [address] Physician Radiation Oncology 01/13/24 Ashlyn Sibley, ASPHALT COATER.RECORDS MANAGEMENT CLERK [address] [place] [address] Nurse Practitioner Hematology/Oncology 01/13/24 Sherron Singh, JUSTIN [address] [place] [address] Specialty Disc Sander Hematology/Oncology 01/13/24 Jana Pierre LSW Strainer Cleaner 02/03/24 Information Management Manager Relationship Specialty Start Date End Date Lesa Estrella DO PCP - General Internal Medicine 01/16/12 Eugene Chaparro MD [address] [place] [address] Physician Hematology/Oncology 01/13/24 Suzanne Grajeda MD [address] [place] [address] Physician Radiation Oncology 01/13/24 Ashlyn Sibley, MIGUEL.RECORDS MANAGEMENT CLERK [address] [place] [address] Nurse Practitioner Hematology/Oncology 01/13/24 Sherron Singh, JUSTIN [address] [place] [address] Specialty Disc Sander Hematology/Oncology 01/13/24 Jana Pierre LSW Strainer Cleaner 02/03/24 Information Management Manager Relationship Specialty Start Date End Date Lesa Estrella DO PCP - General Internal Medicine 01/16/12 Eugene Chaparro MD [address] [place] [address] Physician Hematology/Oncology 01/13/24 Suzanne Grajeda MD [address] [place] [address] Physician Radiation Oncology 01/13/24 Ashlyn Sibley, ASPHALT COATER.RECORDS MANAGEMENT CLERK [address] [place] [address] Nurse Practitioner Hematology/Oncology 01/13/24 Sherron Singh, JUSTIN [address] [place] [address] Specialty Disc Sander Hematology/Oncology 01/13/24 Jana Pierre LSW Strainer Cleaner 02/03/24 Information Management Manager Relationship Specialty Start Date End Date Lesa Estrella DO PCP - General Internal Medicine 01/16/12 Eugene Chaparro MD [address] [place] [address] Physician Hematology/Oncology 01/13/24 Suzanne Grajeda MD [address] [place] [address] Physician Radiation Oncology 01/13/24 Ashlyn Sibley, ASPHALT COATER.RECORDS MANAGEMENT CLERK [address] [place] [address] Nurse Practitioner Hematology/Oncology 01/13/24 Sherron Singh, JUSTIN [address] [place] [address] Specialty Disc Sander Hematology/Oncology 01/13/24 Jana Pierre LSW Strainer Cleaner 02/03/24 Information Management Manager Relationship Specialty Start Date End Date Lesa Estrella DO PCP - General Internal Medicine 01/16/12 Eugene Chaparro MD [address] [place] [address] Physician Hematology/Oncology 01/13/24 Suzanne Grajeda MD [address] [facility] [place] [address] Physician Radiation Oncology 01/13/24 Ashlyn Sibley, ASPHALT COATER.RECORDS MANAGEMENT CLERK [address] [facility] [place] [address] Nurse Practitioner Hematology/Oncology 01/13/24 Sherron Singh, JUSTIN [address] [place] [address] Specialty Disc Sander Hematology/Oncology 01/13/24 Jana Pierre LSW Strainer Cleaner 02/03/24 Information Management Manager Relationship Specialty Start Date End Date Lesa Estrella DO PCP - General Internal Medicine 01/16/12 Eugene Chaparro MD [address] [place] [address] Physician Hematology/Oncology 01/13/24 Suzanne Grajeda MD [address] [place] [address] Physician Radiation Oncology 01/13/24 Ashlyn Sibley, ASPHALT COATER.RECORDS MANAGEMENT CLERK [address] [facility] [place] [address] Nurse Practitioner Hematology/Oncology 01/13/24 Sherron Singh, JUSTIN [address] [place] [address] Specialty Disc Sander Hematology/Oncology 01/13/24 Jana Pierre LSW Strainer Cleaner 02/03/24 Information Management Manager Relationship Specialty Start Date End Date Leas Estrella DO PCP - General Internal Medicine 01/16/12 Eugene Chaparro MD [address] [place] [address] Physician Hematology/Oncology 01/13/24 Suzanne Grajeda MD [address] [place] [address] Physician Radiation Oncology 01/13/24 Ashlyn Sibley APRN.RECORDS MANAGEMENT CLERK [address] [place] [address] Nurse Practitioner Hematology/Oncology 01/13/24 Sherron Singh, JUSTIN [address] [place] [address] Specialty Disc Sander Hematology/Oncology 01/13/24 Jana Pierre LSW Strainer Cleaner 02/03/24 Information Management Manager Relationship Specialty Start Date End Date Lesa Estrella DO PCP - General Internal Medicine 01/16/12 Eugene Chaparro MD [address] [place] [address] Physician Hematology/Oncology 01/13/24 Suzanne Grajeda MD [address] [place] [address] Physician Radiation Oncology 01/13/24 Ashlyn Sibley, ASPHALT COATER.RECORDS MANAGEMENT CLERK [address] [facility] [place] [place] [address] Nurse Practitioner Hematology/Oncology 01/13/24 Sherron Singh, JUSTIN [address] [facility] [place] [address] Specialty Disc Sander Hematology/Oncology 01/13/24 Jana Pierre LSW Strainer Cleaner 02/03/24 Information Management Manager Relationship Specialty Start Date End Date Lesa Estrella DO PCP - General Internal Medicine 01/16/12 Eugene Chaparro MD [address] [place] [address] Physician Hematology/Oncology 01/13/24 Suzanne Grajeda MD [address] [place] [address] Physician Radiation Oncology 01/13/24 Ashlyn Sibley, ASPHALT COATER.RECORDS MANAGEMENT CLERK [address] [place] [address] Nurse Practitioner Hematology/Oncology 01/13/24 Sherron Singh, JUSTIN [address] [facility] [place] [address] Specialty Disc Sander Hematology/Oncology 01/13/24 Jana Pierre LSW Strainer Cleaner 02/03/24 Information Management Manager Relationship Specialty Start Date End Date Lesa Estrella DO PCP - General Internal Medicine 01/16/12 Eugene Chaparro MD [address] [place] [address] Physician Hematology/Oncology 01/13/24 Suzanne Grajeda MD [address] [place] [address] Physician Radiation Oncology 01/13/24 Ashlyn Sibley, ASPHALT COATER.RECORDS MANAGEMENT CLERK [address] [place] [address] Nurse Practitioner Hematology/Oncology 01/13/24 Sherron Singh, JUSTIN [address] [place] [address] Specialty Disc Sander Hematology/Oncology 01/13/24 Jana Pierre LSW Strainer Cleaner 02/03/24 Information Management Manager Relationship Specialty Start Date End Date Lesa Estrella DO PCP - General Internal Medicine 01/16/12 Eugene Chaparro MD [address] [place] [address] Physician Hematology/Oncology 01/13/24 Suzanne Grajeda MD [address] [place] [address] Physician Radiation Oncology 01/13/24 Ashlyn Sibley, ASPHALT COATER.RECORDS MANAGEMENT CLERK [address] [place] [address] Nurse Practitioner Hematology/Oncology 01/13/24 Sherron Singh, JUSTIN [address] [place] [address] Specialty Disc Sander Hematology/Oncology 01/13/24 Jana Pierre LSW Strainer Cleaner 02/03/24 Information Management Manager Relationship Specialty Start Date End Date Lesa Estrella DO PCP - General Internal Medicine 01/16/12 Eugene Chaparro MD [address] [place] [address] Physician Hematology/Oncology 01/13/24 Suzanne Grajeda MD [address] [place] [address] Physician Radiation Oncology 01/13/24 Ashlyn Sibley, ASPHALT COATER.RECORDS MANAGEMENT CLERK [address] [place] [address] Nurse Practitioner Hematology/Oncology 01/13/24 Sherron Singh, JUSTIN [address] [place] [address] Specialty Disc Sander Hematology/Oncology 01/13/24 Jana Pierre LSW Strainer Cleaner 02/03/24 Information Management Manager Relationship Specialty Start Date End Date Lesa Estrella DO PCP - General Internal Medicine 01/16/12 Eugene Chaparro MD [address] [place] [address] Physician Hematology/Oncology 01/13/24 Suzanne Grajeda MD [address] [place] [address] Physician Radiation Oncology 01/13/24 Ashlyn Sibley, [employer].RECORDS MANAGEMENT CLERK [address] [place] [address] Nurse Practitioner Hematology/Oncology 01/13/24 Sherron Singh, JUSTIN [address] [place] [address] Specialty Disc Sander Hematology/Oncology 01/13/24 Jana Pierre LSW Strainer Cleaner 02/03/24 Information Management Manager Relationship Specialty Start Date End Date Lesa Estrella DO PCP - General Internal Medicine 01/16/12 Eugene Chaparro MD [address] [place] [address] Physician Hematology/Oncology 01/13/24 Suzanne Grajeda MD [address] [place] [address] Physician Radiation Oncology 01/13/24 Ashlyn Sibley APRN.RECORDS MANAGEMENT CLERK [address] [place] [address] [place] [address] Nurse Practitioner Hematology/Oncology 01/13/24 Sherron Singh, JUSTIN [address] [place] [address] Specialty Disc Sander Hematology/Oncology 01/13/24 Jana Pierre LSW Strainer Cleaner 02/03/24 Information Management Manager Relationship Specialty Start Date End Date Lesa Estrella DO PCP - General Internal Medicine 01/16/12 Eugene Chaparro MD [address] [place] [address] Physician Hematology/Oncology 01/13/24 Suzanne Grajeda MD [address] [place] [address] Physician Radiation Oncology 01/13/24 Ashlyn Sibley, [employer].RECORDS MANAGEMENT CLERK [address] [place] [address] Nurse Practitioner Hematology/Oncology 01/13/24 Sherron Singh, JUSTIN [address] [place] [address] Specialty Disc Sander Hematology/Oncology 01/13/24 Jana Pierre LSW Strainer Cleaner 02/03/24 Information Management Manager Relationship Specialty Start Date End Date Lesa Estrella DO PCP - General Internal Medicine 01/16/12 Eugene Chaparro MD [address] [place] [address] Physician Hematology/Oncology 01/13/24 Suzanne Grajeda MD [address] [place] [address] Physician Radiation Oncology 01/13/24 Ashlyn Sibley, [employer].RECORDS MANAGEMENT CLERK [address] [place] [address] Nurse Practitioner Hematology/Oncology 01/13/24 Sherron Singh, JUSTIN [address] [place] [address] Specialty Disc Sander Hematology/Oncology 01/13/24 Jana Pierre LSW Strainer Cleaner 02/03/24 Information Management Manager Relationship Specialty Start Date End Date Lesa Estrella DO PCP - General Internal Medicine 01/16/12 Eugene Chaparro MD [address] [facility] [place] [address] Physician Hematology/Oncology 01/13/24 Suzanne Grajeda MD [address] [facility] [place] [address] Physician Radiation Oncology 01/13/24 Ashlyn Sibley, [employer].RECORDS MANAGEMENT CLERK [address] [place] [address] Nurse Practitioner Hematology/Oncology 01/13/24 Sherron Singh, JUSTIN [address] [facility] [place] [address] Specialty Disc Sander Hematology/Oncology 01/13/24 Jana Pierre LSW Strainer Cleaner 02/03/24 Information Management Manager Relationship Specialty Start Date End Date Lesa Estrella DO PCP - General Internal Medicine 01/16/12 Eugene Chaparro MD [address] [place] [address] Physician Hematology/Oncology 01/13/24 Suzanne Grajeda MD [address] [place] [address] Physician Radiation Oncology 01/13/24 Ashlyn Sibley, [employer].RECORDS MANAGEMENT CLERK [address] [place] [address] Nurse Practitioner Hematology/Oncology 01/13/24 Sherron Singh, JUSTIN [address] [place] [address] [place] [address] Specialty Disc Sander Hematology/Oncology 01/13/24 Jana Pierre LSW Strainer Cleaner 02/03/24 Information Management Manager Relationship Specialty Start Date End Date Lesa Estrella DO PCP - General Internal Medicine 01/16/12 Information Management Manager Relationship Specialty Start Date End Date Lesa Estrella DO PCP - General Internal Medicine 01/16/12 Information Management Manager Relationship Specialty Start Date End Date Lesa Estrella DO PCP - General Internal Medicine 01/16/12 Eugene Chaparro MD [address] [place] [address] [place] [address] Physician Hematology/Oncology 01/13/24 Suzanne Grajeda MD [address] [place] [address] [place] [address] Physician Radiation Oncology 01/13/24 Ashlyn Sibley APRN.RECORDS MANAGEMENT CLERK [address] [place] [address] [place] [address] Nurse Practitioner Hematology/Oncology 01/13/24 Sherron Singh RN [address] [place] [address] [place] [address] Specialty Disc Sander Hematology/Oncology 01/13/24 Jana Pierre LSW Strainer Cleaner 02/03/24 Information Management Manager Relationship Specialty Start Date End Date Lesa Estrella DO PCP - General Internal Medicine 01/16/12 Eugene Chaparro MD [address] [place] [address] Physician Hematology/Oncology 01/13/24 Suzanne Grajeda MD [address] [place] [address] Physician Radiation Oncology 01/13/24 Ashlyn Sibley, [employer].RECORDS MANAGEMENT CLERK [address] [place] [address] Nurse Practitioner Hematology/Oncology 01/13/24 Sherron Singh, JUSTIN [address] [place] [address] Specialty Disc Sander Hematology/Oncology 01/13/24 Jana Pierre LSW Strainer Cleaner 02/03/24 Information Management Manager Relationship Specialty Start Date End Date Lesa Estrella DO PCP - General Internal Medicine 01/16/12 Eugene Chaparro MD [address] [place] [address] Physician Hematology/Oncology 01/13/24 Suzanne Grajeda MD [address] [facility] [place] [address] Physician Radiation Oncology 01/13/24 Ashlyn Sibley, [employer].RECORDS MANAGEMENT CLERK [address] [facility] [place] [address] Nurse Practitioner Hematology/Oncology 01/13/24 Sherron Singh, JUSTIN [address] [place] [place] [address] Specialty Disc Sander Hematology/Oncology 01/13/24 Jana Pierre LSW Strainer Cleaner 02/03/24 Team Status: Active Member Role Status Dates Lesa Estrella DO Primary Care Provide r, Attending Provider Active Start: September 15, 2024 Team Status: Inactive Member Role Status Dates Lesa Estrella DO Primary Care Provide r, Attending Provider Active Start: September 21, 2024 End: September 21, 2024 Team Status: Active Member Role Status Dates Lesa Estrella DO Primary Care Provider Active Start: September 30, 2024 Eugene Chaparro MD Attending Provider Active Start: September 30, 2024 Information Management Manager Relationship Specialty Start Date End Date Lesa Estrella DO PCP - General Internal Medicine 01/16/12 Eugene Chaparro MD [address] [place] [address] [place] [address] Physician Hematology/Oncology 01/13/24 Suzanne Grajeda MD [address] [place] [address] [place] [address] Physician Radiation Oncology 01/13/24 Ashlyn Sibley APRN.RECORDS MANAGEMENT CLERK [address] [place] [address] [place] [address] Nurse Practitioner Hematology/Oncology 01/13/24 Sherron Singh RN [address] [place] [address] Specialty Disc Sander Hematology/Oncology 01/13/24 Jana Pierre LSW Strainer Cleaner 02/03/24 Information Management Manager Relationship Specialty Start Date End Date [place] [address] PCP - General Internal Medicine 03/16/25 Team Status: Active Member Role Status Dates Lesa Estrella DO Primary Care Provider Active Start: January 18, 2025 Eugene Chaparro MD Attending Provider Active Start: January 18, 2025 Team Status: Inactive Member Role Status Dates Lesa Estrella DO Primary Care Provider Active Start: March 16, 2025 End: March 16, 2025 Theodora Love APRN Attending Provider Active S tart: March 16, 2025 End: March 16, 2025 Information Management Manager Relationship Specialty Start Date End Date Les[facility] [place] [address] PCP - General Internal Medicine 03/16/25 Team Status: Inactive Member Role Status Dates Lesa Estrella DO Primary Care Provide r, Attending Provider Active Start: March 23, 2025 End: March 23, 2025 Information Management Manager Relationship Specialty Start Date End Date Lesa Estrella DO PCP - General Internal Medicine 01/16/12 Eugene Chaparro MD [address] [place] [place] [address] Physician Hematology/Oncology 01/13/24 Suzanne Grajeda MD [address] [facility] [place] [address] Physician Radiation Oncology 01/13/24 Ashlyn Sibley APRN.RECORDS MANAGEMENT CLERK [address] [place] [address] Nurse Practitioner Hematology/Oncology 01/13/24 Jana Pierre LSW Strainer Cleaner 02/03/24 Information Management Manager Relationship Specialty Start Date End Date Lesa Estrella DO PCP - General Internal Medicine 01/16/12 Eugene Chaparro MD [address] [place] [address] Physician Hematology/Oncology 01/13/24 Suzanne Grajeda MD [address] [place] [address] Physician Radiation Oncology 01/13/24 Ashlyn Sibley, [employer].RECORDS MANAGEMENT CLERK [address] [place] [address] [place] [address] Nurse Practitioner Hematology/Oncology 01/13/24 Jana Pierre LSW Strainer Cleaner 02/03/24 Information Management Manager Relationship Specialty Start Date End Date Lesa Estrella DO PCP - General Internal Medicine 01/16/12 Eugene Chaparro MD [address] [place] [address] [place] [address] Physician Hematology/Oncology 01/13/24 Suzanne Grajeda MD [address] [place] [address] Physician Radiation Oncology 01/13/24 Ashlyn Sibley, [employer].RECORDS MANAGEMENT CLERK [address] [place] [address] Nurse Practitioner Hematology/Oncology 01/13/24 Jana Pierre LSW Strainer Cleaner 02/03/24 REASON FOR VISIT (unrecogniz ed section and content) Reason Comments Follow-up 2 weeks follow up At herosclerosis of pamunkey coronary artery, unspecified whether angina present, unspecified whether pamunkey or transplanted heart Specialty Diagnoses / Procedures Referred By Contkiki t Referred To Contact Cardiology Diagnoses Localized edema Procedures Follow Up In Cardiology Theodora Love, [employer]-RECORDS MANAGEMENT CLERK [address] [facility] [address], [address] [address] Phone: tel: fax: Referral ID Status Reason Start Date Expiration Date V isits Requested Visits Authorized [id number] Authorized 03/16/2025 03/16/2026 1 1 Reason Comments Annual Exam [address] sooner OV leg swelling Specialty Diagnoses / Procedures Referred By Contac t Referred To Contact Cardiology Diagnoses Atherosclerosis of pamunkey coronary artery, unspecified whether angina present, unspecified whether pamunkey or transplanted heart Procedures Follow Up In Cardiology George Morgan, DO [address] [facility] [address], [address] [address] Phone: tel: fax: George Morgan, DO [address] [facility], [place] [id number] Phone: tel: fax: Referral ID Status Reason Start Date Expiration Date V isits Requested Visits Authorized [id number] Authorized 05/20/2024 05/20/2025 [address] Specialty Diagnoses / Procedures [facility] Diagnoses Malignant neoplasm of urinary bladder, unspecified site (HCC) Procedures CT ABD/PEL W IVCON CT ABD & PELVIS W/CONTRAST Eugene Chaparro MD [address] [place] [address] [place] [address] Phone: tel: fax: CT IMAGING [facility] Referral ID Status Reason Start Date Expiration Date V isits Requested Visits Authorized [id number] Closed Auto-Generate d Referral 01/26/2025 11/27/2025 1 1 Reason Comments Results Reason Comments Care Coordination Urology Question Reason Comments Bladder Cancer 3 month follow up Reason Comments Radiology NM Specialty Diagnoses / Procedures [facility] Referred To Contact MOLECULAR & FUNCTIONAL IMAGING Diagnoses Malignant neoplasm of urinary bladder, unspecified site (HCC) Procedures NM PET/CT SKULL-THIGH SUBSEQUENT PET IMAGING CT ATTENUATION SKULL BASE MID-THIGH Eugene Chaparro MD [address] [place] [address] [place] [address] Molecular & Functional Imaging [address] [place], [place] [id number] Referral ID Status Reason Start Date Expiration Date V isits Requested Visits Authorized [id number] Closed Auto-Generate d Referral 10/02/2024 11/01/2025 1 1 Reason Comments Care Coord[address] CT Results Reason Comments Radiology NM Specialty Diagnoses / Procedures Referred By Contac t Referred To Contact CT IMAGING Diagnoses 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) Procedures CT CHEST WO IVCON DIAGNOSTIC COMPUTED TOMOGRAPHY THORAX W/O CNTRST Suzanne Grajeda MD [address] [place] [address] [place] [address] [place] [address] Referral ID Status Reason Start Date Expiration Date V isits Requested Visits Authorized [id number] Closed Auto-Generate d Referral 12/31/2023 01/29/2025 1 1 Reason Comments Bladder Cancer Follow up Reason [...] Call Specialty Diagnoses / Procedures Referred By Contac t Referred To Contact Diagnoses 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) Eugene Chaparro MD [address] [place] [address] [place] [address] Maninder Treat Shila [address] [place] [address] Referral ID Status Reason Start Date Expiration Date V isits Requested Visits Authorized [id number] Authorized 01/05/2024 04/04/2024 99 99 Reason Comments Benefits Investigation Reason Comments Care Coordination Antiemetics Reason Onset Date Comments Simulation Request Form 01/08/2024 Reason Comments Future Appointment Reason Comments Patient Education Reason Comments Consult Reason Comments Bladder Cancer New patient consult Specialty Diagnoses / Procedures Referred By Contac t Referred To Contact Oncology Diagnoses 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) Procedures CONSULT TO ONCOLOGY OFFICE/OUTPATIENT [facility] 60 MINUTES Suzanne Grajeda MD [address] [place] [address] [place] [address] Referral ID Status Reason Start Date Expiration Date V isits Requested Visits Authorized [id number] Closed PCP Requested Referral 12/31/2023 12/30/2024 1 1 Opinion Reason Comments Follow-up 6 months 4 month Follow upGI REFERRAL CONSULT Specialty Diagnoses / Procedures Referred By Contkiki t Referred To Contact Diagnoses [facility] [address] [place] [address] [facility] [address] [place] [address] Referral ID Status Reason Start Date Expiration Date Visits Re quested Visits Authorized [id number] 1 1 PATIENT IS HERE AT THE [...] or prosecute any alcohol or drug abuse patient.[facility] Center[facility] the event this information is protected by the Federal Confidentiality of Alcohol and Drug Abuse Patient Records regulations: The Federal rules restrict any use of the information to criminally investigate or prosecute any alcohol or drug abuse patient.[facility] CenterIn the event this information is protected by the Federal Confidentiality of Alcohol and Drug Abuse Patient Records regulations: The Federal rules restrict any use of the information to criminally investigate or prosecute any alcohol or drug abuse patient.[facility] CenterIn the event this information is protected by the Federal Confidentiality of Alcohol and Drug Abuse Patient Records regulations: The Federal rules restrict any use of the information to criminally investigate or prosecute any alcohol or drug abuse patient.[facility] CenterIn the event this information is protected by the Federal Confidentiality of Alcohol and Drug Abuse Patient Records regulations: The Federal rules restrict any use of the information to criminally investigate or prosecute any alcohol or drug abuse patient.[facility] CenterIn the event this information is protected by the Federal Confidentiality of Alcohol and Drug Abuse Patient Records regulations: The Federal rules restrict any use of the information to criminally investigate or prosecute any alcohol or drug abuse patient.[facility] CenterIn the event this information is protected by the Federal Confidentiality of Alcohol and Drug Abuse Patient Records regulations: The Federal rules restrict any use of the information to criminally investigate or prosecute any alcohol or drug abuse patient.[facility] CenterIn the event this information is protected by the Federal Confidentiality of Alcohol and Drug Abuse Patient Records regulations: The Federal rules restrict any use of the information to criminally investigate or prosecute any alcohol or drug abuse patient.[facility] CenterIn the event this information is protected by the Federal Confidentiality of Alcohol and Drug Abuse Patient Records regulations: The Federal rules restrict any use of the information to criminally investigate or prosecute any alcohol or drug abuse patient.[facility] CenterIn the event this information is protected by the Federal Confidentiality of Alcohol and Drug Abuse Patient Records regulations: The Federal rules restrict any use of the information to criminally investigate or prosecute any alcohol or drug abuse patient.[facility] CenterIn the event this information is protected by the Federal Confidentiality of Alcohol and Drug Abuse Patient Records regulations: The Federal rules restrict any use of the information to criminally investigate or prosecute any alcohol or drug abuse patient.[facility] CenterIn the event this information is protected by the Federal Confidentiality of Alcohol and Drug Abuse Patient Records regulations: The Federal rules restrict any use of the information to criminally investigate or prosecute any alcohol or drug abuse patient.[facility] CenterIn the event this information is protected by the Federal Confidentiality of Alcohol and Drug Abuse Patient Records regulations: The Federal rules restrict any use of the information to criminally investigate or prosecute any alcohol or drug abuse patient.[facility] CenterIn the event this information is protected by the Federal Confidentiality of Alcohol and Drug Abuse Patient Records regulations: The Federal rules restrict any use of the information to criminally investigate or prosecute any alcohol or drug abuse patient.[facility] CenterIn the event this information is protected by the Federal Confidentiality of Alcohol and Drug Abuse Patient Records regulations: The Federal rules restrict any use of the information to criminally investigate or prosecute any alcohol or drug abuse patient.[facility] CenterIn the event this information is protected by the Federal Confidentiality of Alcohol and Drug Abuse Patient Records regulations: The Federal rules restrict any use of the information to criminally investigate or prosecute any alcohol or drug abuse patient.[facility] CenterIn the event this information is protected by the Federal Confidentiality of Alcohol and Drug Abuse Patient Records regulations: The Federal rules restrict any use of the information to criminally investigate or prosecute any alcohol or drug abuse patient.[facility] CenterIn the event this information is protected by the Federal Confidentiality of Alcohol and Drug Abuse Patient Records regulations: The Federal rules restrict any use of the information to criminally investigate or prosecute any alcohol or drug abuse patient.[facility] CenterIn the event this information is protected by the Federal Confidentiality of Alcohol and Drug Abuse Patient Records regulations: The Federal rules restrict any use of the information to criminally investigate or prosecute any alcohol or drug abuse patient.[facility] CenterIn the event this information is protected by the Federal Confidentiality of Alcohol and Drug Abuse Patient Records regulations: The Federal rules restrict any use of the information to criminally investigate or prosecute any alcohol or drug abuse patient.[facility] CenterIn the event this information is protected by the Federal Confidentiality of Alcohol and Drug Abuse Patient Records regulations: The Federal rules restrict any use of the information to criminally investigate or prosecute any alcohol or drug abuse patient.[facility] CenterIn the event this information is protected by the Federal Confidentiality of Alcohol and Drug Abuse Patient Records regulations: The Federal rules restrict any use of the information to criminally investigate or prosecute any alcohol or drug abuse patient.[facility] CenterIn the event this information is protected by the Federal Confidentiality of Alcohol and Drug Abuse Patient Records regulations: The Federal rules restrict any use of the information to criminally investigate or prosecute any alcohol or drug abuse patient.[facility] CenterIn the event this information is protected by the Federal Confidentiality of Alcohol and Drug Abuse Patient Records regulations: The Federal rules restrict any use of the information to criminally investigate or prosecute any alcohol or drug abuse patient.[facility] CenterIn the event this information is protected by the Federal Confidentiality of Alcohol and Drug Abuse Patient Records regulations: The Federal rules restrict any use of the information to criminally investigate or prosecute any alcohol or drug abuse patient.[facility] CenterIn the event this information is protected by the Federal Confidentiality of Alcohol and Drug Abuse Patient Records regulations: The Federal rules restrict any use of the information to criminally investigate or prosecute any alcohol or drug abuse patient.[facility] CenterIn the event this information is protected by the Federal Confidentiality of Alcohol and Drug Abuse Patient Records regulations: The Federal rules restrict any use of the information to criminally investigate or prosecute any alcohol or drug abuse patient.[facility] CenterIn the event this information is protected by the Federal Confidentiality of Alcohol and Drug Abuse Patient Records regulations: The Federal rules restrict any use of the information to criminally investigate or prosecute any alcohol or drug abuse patient.[facility] CenterIn the event this information is protected by the Federal Confidentiality of Alcohol and Drug Abuse Patient Records regulations: The Federal rules restrict any use of the information to criminally investigate or prosecute any alcohol or drug abuse patient.[facility] CenterIn the event this information is protected by the Federal Confidentiality of Alcohol and Drug Abuse Patient Records regulations: The Federal rules restrict any use of the information to criminally investigate or prosecute any alcohol or drug abuse patient.[facility] CenterIn the event this information is protected by the Federal Confidentiality of Alcohol and Drug Abuse Patient Records regulations: The Federal rules restrict any use of the information to criminally investigate or prosecute any alcohol or drug abuse patient.[facility] CenterIn the event this information is protected by the Federal Confidentiality of Alcohol and Drug Abuse Patient Records regulations: The Federal rules restrict any use of the information to criminally investigate or prosecute any alcohol or drug abuse patient.[facility] CenterIn the event this information is protected by the Federal Confidentiality of Alcohol and Drug Abuse Patient Records regulations: The Federal rules restrict any use of the information to criminally investigate or prosecute any alcohol or drug abuse patient.[facility] CenterIn the event this information is protected by the Federal Confidentiality of Alcohol and Drug Abuse Patient Records regulations: The Federal rules restrict any use of the information to criminally investigate or prosecute any alcohol or drug abuse patient.[facility] CenterIn the event this information is protected by the Federal Confidentiality of Alcohol and Drug Abuse Patient Records regulations: The Federal rules restrict any use of the information to criminally investigate or prosecute any alcohol or drug abuse patient.[facility] CenterIn the event this information is protected by the Federal Confidentiality of Alcohol and Drug Abuse Patient Records regulations: The Federal rules restrict any use of the information to criminally investigate or prosecute any alcohol or drug abuse patient.[facility] CenterIn the event this information is protected by the Federal Confidentiality of Alcohol and Drug Abuse Patient Records regulations: The Federal rules restrict any use of the information to criminally investigate or prosecute any alcohol or drug abuse patient.[facility] CenterIn the event this information is protected by the Federal Confidentiality of Alcohol and Drug Abuse Patient Records regulations: The Federal rules restrict any use of the information to criminally investigate or prosecute any alcohol or drug abuse patient.[facility] CenterIn the event this information is protected by the Federal Confidentiality of Alcohol and Drug Abuse Patient Records regulations: The Federal rules restrict any use of the information to criminally investigate or prosecute any alcohol or drug abuse patient.[facility] CenterIn the event this information is protected by the Federal Confidentiality of Alcohol and Drug Abuse Patient Records regulations: The Federal rules restrict any use of the information to criminally investigate or prosecute any alcohol or drug abuse patient.[facility] CenterIn the event this information is protected by the Federal Confidentiality of Alcohol and Drug Abuse Patient Records regulations: The Federal rules restrict any use of the information to criminally investigate or prosecute any alcohol or drug abuse patient.[facility] CenterIn the event this information is protected by the Federal Confidentiality of Alcohol and Drug Abuse Patient Records regulations: The Federal rules restrict any use of the information to criminally investigate or prosecute any alcohol or drug abuse patient.[facility] CenterIn the event this information is protected by the Federal Confidentiality of Alcohol and Drug Abuse Patient Records regulations: The Federal rules restrict any use of the information to criminally investigate or prosecute any alcohol or drug abuse patient.[facility] CenterIn the event this information is protected by the Federal Confidentiality of Alcohol and Drug Abuse Patient Records regulations: The Federal rules restrict any use of the information to criminally investigate or prosecute any alcohol or drug abuse patient.[facility] CenterIn the event this information is protected by the Federal Confidentiality of Alcohol and Drug Abuse Patient Records regulations: The Federal rules restrict any use of the information to criminally investigate or prosecute any alcohol or drug abuse patient.[facility] CenterIn the event this information is protected by the Federal Confidentiality of Alcohol and Drug Abuse Patient Records regulations: The Federal rules restrict any use of the information to criminally investigate or prosecute any alcohol or drug abuse patient.[facility] CenterIn the event this information is protected by the Federal Confidentiality of Alcohol and Drug Abuse Patient Records regulations: The Federal rules restrict any use of the information to criminally investigate or prosecute any alcohol or drug abuse patient.[facility] CenterIn the event this information is protected by the Federal Confidentiality of Alcohol and Drug Abuse Patient Records regulations: The Federal rules restrict any use of the information to criminally investigate or prosecute any alcohol or drug abuse patient.[facility] CenterIn the event this information is protected by the Federal Confidentiality of Alcohol and Drug Abuse Patient Records regulations: The Federal rules restrict any use of the information to criminally investigate or prosecute any alcohol or drug abuse patient.[facility] CenterIn the event this information is protected by the Federal Confidentiality of Alcohol and Drug Abuse Patient Records regulations: The Federal rules restrict any use of the information to criminally investigate or prosecute any alcohol or drug abuse patient.[facility] CenterIn the event this information is protected by the Federal Confidentiality of Alcohol and Drug Abuse Patient Records regulations: The Federal rules restrict any use of the information to criminally investigate or prosecute any alcohol or drug abuse patient.[facility] CenterIn the event this information is protected by the Federal Confidentiality of Alcohol and Drug Abuse Patient Records regulations: The Federal rules restrict any use of the information to criminally investigate or prosecute any alcohol or drug abuse patient.[facility] CenterIn the event this information is protected by the Federal Confidentiality of Alcohol and Drug Abuse Patient Records regulations: The Federal rules restrict any use of the information to criminally investigate or prosecute any alcohol or drug abuse patient.[facility] CenterIn the event this information is protected by the Federal Confidentiality of Alcohol and Drug Abuse Patient Records regulations: The Federal rules restrict any use of the information to criminally investigate or prosecute any alcohol or drug abuse patient.[facility] CenterIn the event this information is protected by the Federal Confidentiality of Alcohol and Drug Abuse Patient Records regulations: The Federal rules restrict any use of the information to criminally investigate or prosecute any alcohol or drug abuse patient.[facility] CenterIn the event this information is protected by the Federal Confidentiality of Alcohol and Drug Abuse Patient Records regulations: The Federal rules restrict any use of the information to criminally investigate or prosecute any alcohol or drug abuse patient.[facility] CenterIn the event this information is protected by the Federal Confidentiality of Alcohol and Drug Abuse Patient Records regulations: The Federal rules restrict any use of the information to criminally investigate or prosecute any alcohol or drug abuse patient.[facility] CenterIn the event this information is protected by the Federal Confidentiality of Alcohol and Drug Abuse Patient Records regulations: The Federal rules restrict any use of the information to criminally investigate or prosecute any alcohol or drug abuse patient.[facility] CenterIn the event this information is protected by the Federal Confidentiality of Alcohol and Drug Abuse Patient Records regulations: The Federal rules restrict any use of the information to criminally investigate or prosecute any alcohol or drug abuse patient.[facility] CenterIn the event this information is protected by the Federal Confidentiality of Alcohol and Drug Abuse Patient Records regulations: The Federal rules restrict any use of the information to criminally investigate or prosecute any alcohol or drug abuse patient.[facility] CenterIn the event this information is protected by the Federal Confidentiality of Alcohol and Drug Abuse Patient Records regulations: The Federal rules restrict any use of the information to criminally investigate or prosecute any alcohol or drug abuse patient.[facility] CenterIn the event this information is protected by the Federal Confidentiality of Alcohol and Drug Abuse Patient Records regulations: The Federal rules restrict any use of the information to criminally investigate or prosecute any alcohol or drug abuse patient.[facility] CenterIn the event this information is protected by the Federal Confidentiality of Alcohol and Drug Abuse Patient Records regulations: The Federal rules restrict any use of the information to criminally investigate or prosecute any alcohol or drug abuse patient.[facility] CenterIn the event this information is protected by the Federal Confidentiality of Alcohol and Drug Abuse Patient Records regulations: The Federal rules restrict any use of the information to criminally investigate or prosecute any alcohol or drug abuse patient.[facility] CenterIn the event this information is protected by the Federal Confidentiality of Alcohol and Drug Abuse Patient Records regulations: The Federal rules restrict any use of the information to criminally investigate or prosecute any alcohol or drug abuse patient.[facility] Scheduled Active and Recently Administ ered Medications [...] Oral, EVERY 6 HOURS NEEDED, Starting on Sat10/10/23 at 0942, Until Leslie 10/10/23 at 1823, [...] 1 dose, On Leslie 02/06/24 at 0930, EXP: 0140 02/08/24 Hazardous Chemotherapy Drug: Use appropriate PPE. Antineoplastic Vesicant for concentrations greater than 0.4 mg/mL - Antineoplastic Irritant for concentrations less than 0.4 mg/mL. Protect from Light. New Bag/Syringe/Bottle 02/06/2024 10:44 AM EDT 40.6 mg dexAMETHasone 10 mg in NaCl 0.9% 50 mL (DECADRON) 10 mg, INTRAVENOUS, ONCE, 1 dose, On Leslie 02/06/24 at 0930, Refrigerate. New Bag/Syringe/Bottle 02/06/2024 9:47 AM EDT 10 mg fosaprepitant 150 mg in NaCl 0.9% 250 mL (EMEND) 150 mg, INTRAVENOUS, Administer over 30 Minutes, ONCE, 1 dose, On Leslie 02/06/24 at 0930, Approximate Total Volume = 280 mL Mix in non-DEHP bag - Refrigerate New Bag/Syringe/Bottle 02/06/2024 10:07 AM EDT 150 mg furosemide 10 mg injection (LASIX) 10 mg, INTRAVENOUS, ONCE, 1 dose, On Leslie 02/06/24 at 0930 Given 02/06/2024 1:01 PM EDT 10 mg magnesium sulfate iv piggyback in sterile water 2 g 50 mL 2 g, INTRAVENOUS, at 25-50 mL/hr, Administer over 1-2 Hours, ONCE, 1 dose, On Leslie 02/06/24 at 1000, Magnesium Sulfate IV bolus will [...] BE BASED ON THE PRIMARY CLINICAL RECORDS. [employer] provides no warranty or guarantee of the accuracy or completeness of information in this document.
[2025-06-03 12:50] VITALS: BP 135/71; PULSE 76; TEMP 36.2; O2SAT 96
[2025-06-03 15:04] VITALS: BP 138/74; PULSE 61; PULSE 62; O2SAT 100
[2025-06-03 15:05] VITALS: BP 137/71
[2025-06-03] MEDS: LIDOCAINE 2% JELLY 10 ML UR (15:12)
--- NOTE | 2025-06-03 15:29 | PM.URSON ---
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 Cystoscopy. 2. Urethral dilation of strictures with Mason sounds to 30 Brazilian. 3. Placement of 20 Brazilian Saldaña catheter Anesthesia: local Primary Surgeon: Moises Julien Complications: None Estimated blood loss (mL): 5 Findings: 1. 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 He called our office yesterday stating he was barely able to urinate and he needed to get in quickly. He now presents for cystoscopy and probable urethral dilation with the presumption of recurrent strictures. He has signed an informed consent after risks were explained. Detailed description of Procedure: The patient was kept on the [facility] bed and brought into the endoscopy suite. He was in the supine position. Genitalia were sterilely prepped and draped in the usual fashion after timeout was done by all parties in the room. 2% lidocaine gel was passed per urethra. I started by passing a flexible cystoscope per urethra. As I arrived at the proximal penile urethra I could see and feel very indurated narrowing representing a recurrent stricture. I would was able to steadily push the scope through this and pop it open some I then arrived at a second 1 at the bulb. Similarly I was able to get through this 1 but both of them were indurated and it was difficult for the scope to pass through. The prostate was open. Panendoscopy in the bladder showed high-grade trabeculation but no evidence of any tumors or lesions. There was no stone disease. I then passed a Glidewire through the scope and into the bladder and then removed the scope. I then passed Mason sounds over the wire and sequentially dilated his strictures from 20 Brazilian up to 30 Brazilian. I then repassed the scope and he was now wide open but the previous strictures were now mildly bleeding. I therefore elected to place a 20 Brazilian Saldaña catheter into the bladder. 10 cc of fluid was placed in the balloon. It irrigated clear. He was then discharged home. Will get his catheter out in the office tomorrow morning.
== END 2025-06-03 15:43 | disposition home or self-care (01) ==
PROVIDERS: PCP Internal Medicine; Visit Provider Urology
PROC: (CPT 52281; principal; 2025-06-03 13:30)
DX: N35.912 Unspecified bulbous urethral stricture, male (principal); R39.12 Poor urinary stream; Z85.51 Personal history of malignant neoplasm of bladder; N32.89 Other specified disorders of bladder; I25.10 Atherosclerotic heart disease of native coronary artery without angina pectoris; N18.9 Chronic kidney disease, unspecified; Z85.038 Personal history of other malignant neoplasm of large intestine; E78.5 Hyperlipidemia, unspecified; I25.2 Old myocardial infarction; N52.9 Male erectile dysfunction, unspecified; M19.90 Unspecified osteoarthritis, unspecified site
CPT/HCPCS: 52281

== ENCOUNTER 2025-09-28 07:32 | Outpatient (OUT) | payer MEDICARE, SELFPAY ==
--- OUTSIDE RECORDS SUMMARY | 2025-09-22 04:06 | XMS_ITS | Continuity of Care Document ---
Author Organization [facility] Address [address] [place] [address] Phone Care Team Providers Care Clay Miner Name Role Phone Nestor Art DO Primary Care Provider [phone] Nestor Art DO Attending Provider Care Teams Patient Care Team Team Status: Active Member Role/Relationship Status Dates Nestor Art DO Primary Care Provider Active Patient Care Team Team Status: Inactive Member Role/Relationship Status Dates Nestor Art DO Primary Care Provider Active Start: September 22, 2025 End: September 22enalida Art DOAttending ProviderActiveStart: September 22, 2025 End: September 22, 2025 Chief Complaint and Reason for Visit Chief Complaint Admit Date wellness September 22, 2025 8 :00am Reason for Visit Admit Date Benign prostatic hyperplasia with lower urinary tract symptoms September 22, 2025 8:00am Chronic HFrEF (heart failure with reduced ejection fraction) September 22, 2025 8:00am Chronic venous insufficiency September 8:00am Constipation, chronic September 22, 2025 8:00am History of colon cancer September 22 8:00am Hypercholesterolemia September 22, 2025 8:00am Ischemic cardiomyopathy September 22 8:00am Medicare annual wellness visit, subseque nt September 22, 2025 8:00am Papillary adenocarcinoma of bladder Dece mb2024 8:00am Pulmonary nodule September 22, 2025 8 :00am Allergies, Adverse Reactions, Alerts Allergen Type Severity Reaction Last Updated Verified Status No Known Allergies Allergy Unknown September 22, 2025 8:30amYesActive Social History Smoking Status Status Start Date End Date Date of Observa tion Never smoked tobacco (finding) April 22, 2023 12:41pm Observation Status Observation Response Date of Response Legal Sex [facility] (finding) [facility] Family History Relationship Condition Age at Onset Recorded Date/T ayden father Malignant neoplasm of colon Unknown DeceasedUnknownMalignant neoplasmUnknownbrotherDeceasedUnknownmotherHeart diseaseUnknownDeceasedUnknownHistory of strokeUnknown Problems Active Problems Problem Diagnosis/Recorded Date Onset Date Status C omments Sacrococcygeal pilonidal cyst January 01, 2024 12:31pm Unk nown Active [facility]am[facility] ActiveHistory of colon cancerMarch 2023 12:31pmUnknownActiveDx: 1980sPreoperative Chemoradiation,Constipation, chronicMay 2023 6:49pm UnknownActiveHypercholesterolemiaJune 2024 7:05pmUnknownActiveIschemic cardiomyopathyMarch 2023 12:32pmUnknownActiveLHC, PCI/stent OM branch of the LCx - hronic HFrEF (heart failure with reduced ejection fraction)March 19, 2024 6:48pmUnknownActiveEcho: LVEF improved to 65% - ulmonary noduleJanuary 2024 1:30pmUnknownActiveCT: 1.1cm RUL, 0.6cm RML - 09/2024,PET/CT: not FDG avid nodules - 09/2024,CT: less conspicuous RUL nodule, subcentimeter nodules - 01/2025Papillary adenocarcinoma of bladderMarch 2023 4:19pmUnknownActiveDx: 2020, recurrent 2020, second recurrence hemotherapy/Radiation therapy - enign prostatic hyperplasia with lower urinary tract symptomsMay 2023 6:50pmUnknownActiveIrritable bowel syndrome with diarrheaAugust 2023 11:37amUnknownActiveHx of inflammatory bowel diseaseMay 2023 8:25amUnknownActiveChronic venous insufficiencyMarch 2023 12:31pmUnknownActiveRadiation colitisAugust 2023 11:37amUnknownActive Inactive/Resolved Problems Problem Diagnosis/Recorded Date Onset Date Status C omments Colon cancer August 19, 2021 5:22pm Unknown Resolved Problem List clean-up per request of Phys. EHR Cmte Diarrhea August 19, 2021 7:41pm Unknown Resolved Problem List clean-up per request of Phys. EHR Cmte NSTEMI (non-ST elevated myocardial infarction) April 22, 2023 10:52am Unknown Resolved Problem L ist clean-up per request of Phys. EHR Cmte Essential hypertension April 22, 2023 11:46am Unknown R esolved Problem List clean-up per request of Phys. EHR Cmte Urinary tract infection in male August 19, 2021 7:41pm Unknown Resolved Prob to List clean-up per request of Phys. EHR Cmte Medications Medication Status Dose Units Route Directions Qty Days Refills S tart Date Stop Date End Date Reason(s) Instructions Adherence Tamsulosin 0.4 mg capsule Discontinued 0 .ROUTE.HAETDWF926Ggytz 2023 11:05amNovember 2023 12:55pmTAKE 1 CAPSULE BY MOUTH EVERY DAY IN THE EVENING FOR 30 DAYSLosartan 25 mg tablet Khffpknupmxm96QLEQRfvwbEich 2023 11:00pmJune 2023 4:42pmLosartan 25 mg tabletDiscontinued0.ROUTE.SGMZETL525Aogb 2023 4:42pmSeptember 2023 8:00amTAKE 1 TABLET BY MOUTH EVERY DAYLosartan 25 mg tabletDiscontinued0.ROUTE .EPLGYGR243Kusqiepko 2023 7:50amSeptember 2024 6:42amTAKE 1 TABLET BY MOUTH EVERY DAYRosuvastatin 40 mg tabletDiscontinued0.ROUTE.GBRQDCV723Qphmdbjbq 2023 1:39pmSeptember 2023 11:36amTAKE 1 TABLET BY MOUTH EVERY DAY Rosuvastatin 40 mg tabletDiscontinued0.ROUTE.XYQEWAI625Suqxyicrk 2023 11:36amSeptember 2024 6:35amTAKE 1 TABLET BY MOUTH EVERY DAYTamsulosin 0.4 mg capsuleDiscontinued0.4MGPOTwice ghgcd591270Eodtvvge2023 12:55pm August 29, 2025 4:17pmLosartan 25 mg tabletActive0.ROUTE.AKNWDRC621Kovonlotm 5th, 2025 6:42amTAKE 1 TABLET BY MOUTH EVERY DAYComplies with drug therapy Rosuvastatin 40 mg tabletActive0.ROUTE.EBMTWIA468Gqjfsvycm2024 6:35amTAKE 1 TABLET BY MOUTH EVERY DAYComplies with drug therapyTamsulosin 0.4 mg capsule Active0.4MGPOTwice cdzoq621787Bnmphlhm2024 4:17pmComplies with drug therapyTerbinafine Hcl 250 mg ofrzcfKeeiqunwewpy034QNNWDoemxqrGqkz 2022 11:00pm[facility] 2023 12:53pmTamsulosin 0.4 mg capsuleDiscontinued0.4MGPOEvery eveningJu2022 11:00pmApril 2023 11:05amLosartan 25 mg tablet Bdpmzshfoeby64KWCWIccbkyyBksn 2nd, 2023 11:00pm[facility] 2023 12:52pm Ticagrelor (Brilinta) 90 mg JwptfpIoifthoebhbz67VZNNEstmn bluxc509054Ukns2022 11:00pm[facility] 2023 12:53pmAtorvastatin 80 mg BlvjzwKfpuwirhivgx65XQIZ Every jcubcuh162305Mowz 2nd, 2023 11:00pm[facility] 2023 12:52pmCarvedilol 6.25 mg TabletDiscontinued6.25MGPOTwice daily with kfhjy516042Sfqi 2nd, 2023 11:00pm January 01, 2024 12:54pmAspirin 81 mg Tablet,Delayed Release (Dr/Ec)Vveype44PILB Dubsg04725Oxjh2022 11:00pmComplies with drug therapyNitroglycerin 0.4 mg tablet, sublingualDiscontinued0.9JRAJNCQHGEVTE6E as needed for chest keog79064 April 21, 2023 11:00pm[facility] 2023 12:52pmdo not exceed 3 doses per episode Potassium 75 mg tabletDiscontinuedMGPOOctt.[facility] 2023 11:00pmNccechandler regional medical center 2024 8:57amAcetaminophen (Tylenol) 325 mg yqemfiDrrmpodhihdv249ABWZIlosn 6 hours as needed for painDuane L. [facility] 2023 11:00pmAl[facility] 2024 8:54amPotassium 75 mg rorjjaCqbzwf30IZUYHsoffzba 2024 8:56amComplies with drug therapy Cephalexin 500 mg pvtoqrePmaxywhsuvha971WOWCXzrjr neaoa88190Colsnon 2020 11:00pmJuly 2022 10:06amOndansetron 4 mg tablet,disintegratingDiscontinued4 QROZK4Q as needed for nausea and amgadqol118Luondzr 2020 11:00pmJu 2022 10:06amCarvedilol 6.25 mg ygewfaCpigvaxodcxz20.5MGPOTwice daily with meals January 01, 2024 12:51pmAl[facility] 2024 8:57amClopidogrel 75 mg tablet Nhrbobxxprki67FJVILssvxXqvaw 2023 11:00pmJu 2023 10:17am Rosuvastatin 40 mg zizwidBrjteheyagva38FJZQZftpbSypbu 2023 11:00pm July 16, 2024 1:39pmDocusate Sodium 100 mg exeopntGcpvukkdcymz650IEIB Daily as needed for constipationOhiohealth [facility] 2023 11:00pmAl[facility] 2024 8:55amCarvedilol 6.25 mg tabletActive6.25MGPOTwice daily with mealsmymichigan medical center sault2024 8:55amComplies with drug therapyPolyethylene Glycol 3350 (Miralax) 17 gram/dose ibzcdtXxlqrizqzhjn35KAYEUyrad6664893Xjmrwibux 2023 11:00pm August 14, 2024 7:29amPolyethylene Glycol 3350 (Miralax) 17 gram/dose powder Yhdqlr42KUNOTpmnp91958Gmomxvuyc 2023 11:00pmuse 238 grams for colonoscopy prep.Complies with drug therapyAzithromycin 250 mg uoopsbDjcexuudwsjo233TRMS .PYGBPYS661Yyfas 2024 11:00pmDecopper springs hospital 2024 8:33am2 tabs on first day followed by 1 tab on days 2-5Triamcinolone Acetonide 0.1 % creamDiscontinued1 SYEONCPDSZJCKCninl59033Ewhmg 2024 11:00pmMar 2024 8:31am Triamcinolone Acetonide 0.1 % fafqbLdcqhxyawnkr4XIHRFCRYTFDJSRauff05676Hwwkl 2024 8:31amDecechandler regional medical center 2024 8:57amAcetaminophen (Tylenol Extra Strength) 500 mg gmxmaxXydvlx501WNKAMozt times daily as neededAllegheny Valley Hospital 2024 12:00am Complies with drug therapyLevofloxacin 500 mg ytshdlAyfddqjyhalg241RDOZGnnho062 January 30, 2024 11:00pmDuane L. Waters Hospital 2023 7:29amLubiprostone (Amitiza) 24 mcg aietionFiuzuljozglb83NQTDBGuzhj gcxrv7176Amv 2023 11:00pmOctt.[facility]. 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 Lot Number Reason(s) Given Vaccine Information Statement (VIS) Detail Administration Location [facility], Pediatric Age 5-11 August 302021 COVID-19 [facility]June 09OVID-19 [facility]January 19Tap, unspecifiedOctober 2020influenza, unspecified formulationSeptember 2015influenza, unspecified formulationSeptember 2017influenza, unspecified formulationSeptember 2018influenza, unspecified formulationSeptember 2019influenza, unspecified formulationOctober 2020influenza, unspecified formulationSeptember 2021influenza, unspecified formulationSeptember neumococcal Conjugate Vaccine, 13 valent June 27, 2016Pneumococcal Polysacc. Vaccine, 23 valentJan2017 Medical Equipment Device Date Implanted Device Details CL STENT GLENNY FRONTIER 3.0 X 12 April 22, 2023 Vital Signs Vital Reading Result Reference Range Collection Date/Time Height 70 [in_i] September 22, 2025 8:11soBisunw51.54 kgSeptember 22, 2025 8:35amHeart Rate65 /hoc22-310XmdfcdpsSeptember 22, 2025 8:35amRespiratory rate12 /rdf67-51UgocwwoiSeptember 22, 2025 8:35amBP Xipxhgwq464 mm[Hg]100-140September 22, 2025 8:35amBP Dgqomqhnp11 mm[Hg]60-100Dece2024 8:35amBMI (Body Mass Index)27.6 kg/w5NxaeeshrSeptember 22, 2025 8:35am Advance Directives Advance Directive Response Recorded Date/ Time Advance Directives No May 06 9:25am Insurance Providers Guarantor Kennedy Amos Address [address] [address] [facility] [address]Rhfojqo Info.Home Phone: Payer Group Member ID Coverage Type Subscriber Relationship to Subscriber Effective Date Expiration Date Medicare [id number] Jeremi Amos Id: [id number] [address] [address] Home Phone: SelfMedicare Outpatient [id number] Encounters Encounter Location(s) Arrival/Admit Date Discharge/Departure Date Discharge/Departure Disposition Provider(s) Departed Physician/ Provider Office Visit -[facility] September 22, 2025 8:00am September 22, 2025 9:04am Discharged to home care or self care (routine discharge) Nestor Art DO Recent Diagnosis Onset Date Admit Date Benign prostatic hyperplasia with lower urinary tract symptoms Unknown September 22, 2025 8:00am Chronic HFrEF (heart failure with reduced ejection fraction) Unknown September 22, 2025 8:00am Chronic venous insufficiency Unknown Sep 8:00am Constipation, chronic Unknown September 222024 8:00am History of colon cancer Unknown September 22, 2025 8:00am Hypercholesterolemia Unknown September 8:00am Ischemic cardiomyopathy Unknown September 22, 2025 8:00am Medicare annual wellness visit, subsequent Unkno wn September 22, 2025 8:00am Papillary adenocarcinoma of bladder Unknown September 22, 2025 8:00am Pulmonary nodule Unknown September 22, 2 025 8:00am Assessments Diagnosis Onset Date Resolution Status Admit Date Benign prostatic hyperplasia with lower urinary tract symptoms acuteDe2024 8:00amChronic HFrEF (heart failure with reduced ejection fraction)acuteDe2024 8:00amChronic venous insufficiencyacute September 22, 2025 8:00amConstipation, chronicacuteDece2024 8:00am History of colon canceracuteDe2024 8:00amHypercholesterolemiaacute September 22, 2025 8:00amIschemic cardiomyopathyacuteDece2024 8:00am Medicare annual wellness visit, subsequentacuteDe2024 8:00am 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 Monitor for CP, orthopnea, PND and increasing weight/edema. LHC, PCI/stent OM branch of the LCx - 04/2023 Continue ASA, Coreg and Rosuvastatin without interruption I have instructed this patient on a low salt diet, exercise and daily weights. I have instructed them to notify the office for any on any unexpected weight gain > 3lbs and /or increased dyspneaon exertion, difficulty breathing during sleep, worsening lower extremity swelling, chest pain or lightheadedness. I have reviewed the GDMT with beta blockers, KRISTINE/ARB or ARNI, MRA and a SGLT-2i. Echo: LVEF improved to 65% - 06/2023 Continue Coreg and Losartan without interruption Treatment included radiation therapy and radiosensitizing chemotherapy CT CAP w/ no s/s recurrence 01/2025 f/u and Radiation Onc I have instructed this patient on a low fat, high fiber diet and exercise. I have discussed the primary and secondary prevention benefits attributed to lowering LDL cholesterol. I have also discussed the medical treatment of elevated cholesterol, which is based on the 10 year ASCVD risk. Continue Atorvastatin without interruption Hx of colon cancer, s/p resection and chemoradiation. Hx of multiple surgeries for strictures/adhesions. Recent CT enterography revealed no obvious strictures or obstruction. Colonoscopy w/o need for anastomotic dilatation - 08/2024 Instructed on diet: increase fluids, fiber etc Instructed to use Metamucil and Miralax daily Initiated Amitiza 24mg bid for next 10 days c/o urinary incontinence. 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 I have also recommended use of support stockings. I instructed them to inspect their legs and feet daily for blisters and ulcerations. Hx of colon cancer, s/p resection and chemoradiation. Hx of multiple surgeries for strictures/adhesions. Recent CT enterography revealed no obvious strictures or obstruction. Colonoscopy w/o need for anastomotic dilatation - 08/2024 CT: 1.1cm RUL, 0.6cm RML - 09/2024, PET/CT: not FDG avid nodules - 09/2024, CT: less conspicuous RUL nodule, subcentimeter nodules - 01/2025 I have instructed this patient on the recommended lifestyle changes, which includes a low fat, high fiber diet along with a regular exercise routine. I have also reviewed the recommended age-appropriate preventive testing for this patient. I have also reviewed the recommended vaccines for their age and risk factors. Future Tests Future scheduled test information is unavailable Pending Tests Test Name Ordered Date Scheduled Date Comprehensive Metabolic Panel September 22, 2025 9:02am Future Visits Future appointment information is unavailable Future Procedures Procedure Name Ordered Date Scheduled Date Complete Blood Count Auto Diff September 22 9:02am Lipid PanelDecember 2024 9:02am Future Medications Future medication information is unavailable Patient Instructions Patient instructions are unavailable
--- OUTSIDE RECORDS SUMMARY | 2025-09-28 07:42 | XMS_ITS | CCD ---
Author Organization [facility] Inform ion [facility] Care Team Providers Care Ship'S Cook Name Role Phone GEORGE RIOS Unavailable Unavailable LESA ESTRELLA Unavailable Unavailable GEORGE RIOS Unavailable Unavailable LESA ESTRELLA Unavailable LESA Vela Primary Care Physician JIMMY ESTRELLA Primary Care Unavailable DAVID MCGREGOR Referring Unavailable LUKE LAN Attending Unavailable HANG OHARA Referring Unavailable JIMMY ESTRELLA Primary Care Unavailable SAHIL CAMACHO Admitting [...] DR NONE LISTED Primary Care Unavaila ble REINCHRISTINA, DR HANG [place] Consulting Unavailabl e KNANKIT OWENS Consulting Unavailable MANAV PARK Consulting Unavailable DIETRICH [...] LISTED Primary Care Unavaila ble BALL, DR BEAZ Admitting Unavailable BALL, DR BAEZ Primary Care [...] Admit Provider MD Kiki Motta Attending Provider [phone] MD Grace West Other Provider MD Raheem Giles Other Provider MD Kimberly Skinner Other Provider MD George Lay Other Provider JUSTIN Gould Other Provider Unavailable MD Peyton Norman Other Provider Lorna [facility] Misty Blood Other Provider MD Endy Arevalo Other Provider MD Lucio Dillon Other Provider DO Ko Morgan Other Provider MIGUEL White Other Provider MD Hannah Abraham Other Provider Lesa Estrella Unavailable Unavailable Unavailable Eddie, Dr. George Pierre Attending Raegan Estrella, Dr. Lesa Lovelace Primary [facility] [place] Marcella Estrella, Dr. Lesa Lovelace Primary [facility] [place] Marcella Morgan, Dr. George Pierre Referring Raegan Morgan, Dr. George Pierre Attending Raegan Estrella, Dr. Lesa Lovelace Primary [facility] [place] Marcella Morgan, Dr. George Pierre Attending Raegan Estrella, Dr. Lesa Lovelace Primary [facility] [place] Marcella Gates Imad Unavailable Jimmy Estrella MD Primary Care Provider DO Lesa Estrella Primary Care Provider MD Zofia Gates Attending Provider [phone] Lesa Estrella DO Primary Care Provider Deann CHOI, Eugene Unavailable [phone] Suzanne Grajeda MD Unavailable Toñito FINISHER POLISHER.STITCHER SPECIAL MACHINE, Ashlyn Unavailable Ced ANDERSON, Sherron Unavailable Jana Carrero Unavailable Unavailable Lesa Estrella DO Primary Care Provider Suzanne Grajeda MD Unavailable [phone] Kylie DIETRICH Attending Unavailable Kylie DIETRICH Attending Unavailable Kylie DIETRICH Admitting Unavailable Kylie DIETRICH Attending Unavailable DIETRICH, Kylie R Attending Unavailable Kylie Dietrich MD Attending Provider Kylie Dietrich MD Attending Provider [phone] Sameer DOLesa E Primary Care Provider Lesa Estrella DO Primary Care Provider Theodora Love APRN Attending Provider Sameer Lesa Primary Care Unavailable Asaad, Imad Attending Unavailable Asaad, Imad Admitting Unavailable Dietrich, Kylie Admitting Unavailable Dietrich, Kylie Attending Unavailable Ball, Lesa Primary Care Unavailable Love, Theodora K Attending Unavailable Love, Theodora K Admitting Unavailable DIETRICH, Kylie R Attending Unavailable EDDIE, GEORGE S Attending Unavailable BALL, LESA E Primary Care Unavailable EDDIE, GEORGE S Referring Unavailable LOVE, THEODORA K Attending Unavailable EDDIE, GEORGE S Referring Unavailable BALL, LESA E Primary Care Unavailable LOVE, THEODORA K Attending Unavailable LOVE, THEODORA K [...] Unavailable BALL, LESA E Primary Care Unavailable ENGFAITH G LEIGH Attending Unavailable BALL, LESA E Primary Care Unavailable BALL, LESA E Primary Care Unavailable ABHYANKAR, EUGENE Referring Unavailable BALL, LESA E Primary Care Unavailable ENGELEKavya G LEIGH Attending Unavailable BALL, LESA E Primary Care Unavailable ABHYANKAR, UEGENE Attending Unavailable BALL, LESA E Primary Care Unavailable BALL, LESA E Primary Care Unavailable BALL, LESA E Primary Care Unavailable ENGELER, G LEIGH Attending Unavailable ORALIAELEKavya G LEIGH Referring Unavailable BALL, LESA E Primary Care Unavailable ABHYANKAR, EUGENE Attending Unavailable ABHYANKAR, EUGENE Referring Unavailable DIETRICH, Kylie R Attending Unavailable KARLO, Kylie R Attending Unavailable DIETRICH, Kylie R Attending Unavailable LAUREL, TRINA [place] Attending Unavailable LAUREL, TRINA [place] Attending Unavailable KARLO, Kylie Restrepo Attending Unavailable Niki Dumont Attending Unavailable DIETRICH, Kylie R Attending Unavailable Kylie DIETRICH Attending Unavailable Lesa Estrella DO Primary Care Provider REANNA WAGNER Attending REANNA Begum Referring REANNA Begum Referring Niles [place] Allergies Allergy ClassificationReported Allergen(s)Allergy TypeDate of OnsetReaction(s) FacilityPenicillins (antibiotic) (1 source)AmoxicillinDrug Dwoptpp10-47-1654Twgqa: See CommentsCherrington Hospital (20 sources)Amoxicillin; Translations: [amoxicillin]Drug Pbatvma03-61-2672Ueofe: See Comments, OtherCherrington Hospital Medications Current Medications MedicationDrug Class(es)DatesSig (Normalized)Sig (Original)acetaminophen 325 mg oral tablet (10 sources)Start: 40-61-0731jwya 1 tablet by mouth every six hours as needed for painAcetaminophen (Tylenol) 325 mg tablet Active 325 MG PO Every 6 hours as needed for pain August 18, 2024 12:00amStart: 10-10-2023 End: 59-70-0203gpiy 1 tablet by mouth every four hours as neededAcetaminophen (TYLENOL) tablet 650 mgtake 1 tablet by mouth every eight hours as needed acetaminophen (Tylenol 8 Hour) 650 MG ER tablet Take 650 mg by mouth every 8 (eight) hours if needed Activeaspirin 81 mg chewable tablet (20 sources)Platelet Aggregation Inhibitor, Nonsteroidal Anti-inflammatory Drug Start: 11-20-2023 End: 00-85-7249EXFSJ CHEWABLE ASPIRIN 81 mg chewable tablet CHEW 1 TABLET ONCE DAILY 11/20/2023 ActiveStart: 10-10-2023 End: 94-82-7125asvpflu chewable tablet 81 mgStart: 13-06-7221ubbt 1 tablet by mouth once dailyAspirin 81 81 MG 1 tablet Orally Once a day Apr, Active Start: 99-53-3366bqey 1 tablet by mouth once dailyAspirin 81 mg Tablet,Delayed Release (Dr/Ec) Active 81 MG PO Daily 90 April 22, 2023 12:00amtake 1 tablet by mouth every twenty-four hoursAspirin 325 MG 1 tablet Orally Once a day Not-Taking/PRNComment on above:CHEW 1 TABLET ONCE DAILYazithromycin 250 mg oral tablet (3 sources)Macrolide AntimicrobialStart: 56-91-0522Ptlmndydyxmz 250 mg tablet Active 250 MG PO .COMPLEX 6 5 January 08, 2025 12:00am 2 tabs on first day followed by 1 tab on days 2-5beta prostate (14 sources)Start: 54-55-3515nhns prostate beta prostate Start Date: 09/01/21 Status: Orderedcalcium carbonate 1500 mg oral tablet (4 sources)Start: 07-89-2021agbf 1 tablet by mouth twice dailycalcium (as carbonate) 600 mg oral tablet 600 mg = 1 tab(s), Oral, BID, Prophylaxis Start Date: 12/05/23 Status: Orderedcarvedilol 6.25 mg oral tablet (20 sources)alpha-Adrenergic Myra, beta-Adrenergic BlockerStart: 01-01-2024 take 2 tablets by mouth twice daily at mealtimeCarvedilol 6.25 mg tablet Active 12.5 MG PO Twice daily with meals January 01, 2024 1:51pmStart: 64-41-9257lzpz 12.5 mg by mouth twice daily at mealtimeCarvedilol Active 12.5 MG PO Twice daily with meals January 01, 2024 1:51pmStart: 11-25-9406piss 2 tablets by mouth every twelve hoursCarvedilol 6.25 MG 2 tablets with food Orally Twice a day Apr, ActiveStart: 08-72-8303lxok 1 tablet by mouth every twelve hours Carvedilol 25 MG 1 tablet with food Orally Twice a day for 30 days Apr, ActiveStart: 04-22-2023 End: 48-33-2133qjqw 1 tablet by mouth twice daily at mealtimecarvedilol (Coreg) 6.25 MG tablet TAKE 1 TABLET (6.25 MG) BY MOUTH 2 TIMES A DAY. TAKE WITH FOOD. 03/03/2025 ActiveComment on above:Take 6.25 mg by mouth two times a day with meals.Catheter ([facility]) misc (20 sources)Start: 38-54-5289Rkqrhsux ([facility]) misc Indications: Other urinary incontinence 1 Device once daily. 35 Each 02/12/2024 ActiveStart: 77-46-7090Wktowbkp ([facility]) misc Indications: Other urinary incontinence 1 Device once daily. 35 Each 0 02/12/2024 ActiveStart: 02-12-2024 End: 78-21-5888Lqiluloq ([facility]) misc Indications: Other urinary incontinence 1 Device once daily. 35 Each 0 02/12/2024 03/13/2024 Activecefdinir 300 mg oral capsule (10 sources)Cephalosporin AntibacterialStart: 93-31-4742ofkcsqxb 300 mg Cap See Instructions, Refills(s) 0 Start Date: 06/14/20 Status: Orderedcephalexin 500 mg oral capsule (16 sources)Cephalosporin AntibacterialStart: 12-16-2023 End: 01-87-0224lixa 1 capsule by mouth every twelve hourscephalexin 500 mg Cap 500 mg = 1 cap(s), Oral, q12hr, X 7 day(s), # 14 cap(s), Refills(s) 0, Pharmacy: [facility]/pharmacy #[id number], 179, cm, 12/16/23 9:50:00 EST, Height/Length Dosing, 80, kg, 12/16/23 9:50:00 EST, Weight Dosing Start Date: 03/04/24 Stop Date: 03/11/24 Status: OrderedStart: 08-19-2021 End: 26-78-1563fsrq 1 capsule by mouth twice dailyCephalexin 500 mg capsule Discontinued 500 MG PO Twice daily 09 08August 19, 2021 12:00am April 22, 2023 11:06amclopidogrel 75 mg oral tablet (20 sources)P2Y12 Platelet InhibitorStart: 11-16-2023 End: 19-33-1038idnk 1 tablet by mouth once dailyclopidogrel (PLAVIX) 75 mg tablet Take 75 mg by mouth once daily. 11/16/2023 ActiveStart: 11-16-2023 clopidogrel (PLAVIX) 75 mg tablet TAKE 8 TABLETS BY MOUTH FOR 1 DOSE ONLY,THEN TAKE 1 TABLET BY MOUTH DAILY*REPLACES BRILINTA* 0 11/16/2023 ActiveStart: 05-23-2023 End: 68-89-0571bogq 1 tablet by mouth every twenty-four hoursClopidogrel Bisulfate 75 MG 1 tablet Orally Once a day May, ActiveStart: 05-23-2023 Clopidogrel Bisulfate 75 MG Oral Tablet take 8 tablets ( 600mg) x one dose only, then take one tablet daily Quantity: 98 Refills: 3 Ordered: 23-May-2023 George Morgan DO Start : 23-May-2023 Active new start, replaces BrilintaComment on above:TAKE 8 TABLETS BY MOUTH FOR 1 DOSE ONLY,THEN TAKE 1 TABLET BY MOUTH DAILY*REPLACES BRILINTA*Take 75 mg by mouth once daily.docusate sodium 100 mg oral capsule (20 sources)Start: 01-01-2024 End: 84-63-1749okxc 1 capsule by mouth once daily as needed for constipation Docusate Sodium 100 mg capsule Active 100 MG PO Daily as needed for constipation January 01, 2024 12:00amtake 1 tablet by mouth once dailyStool Softener 100 MG Oral Tablet TAKE 1 TABLET DAILY DIRECTED. Quantity: 0 Refills: 0 Ordered: 1 22-Apr-2023 DO ActiveComment on above:Take 100 mg by mouth as needed for constipation.doxycycline hyclate 100 mg oral capsule (5 sources)Tetracycline-class DrugStart: 32-61-4143plxy 1 capsule by mouth every twenty-four hoursDoxycycline Hyclate 100 MG 1 capsule Orally Once a day for 14 days Aug, ActiveDuoDERM CGF Dressing - (5 sources)Start: 13-37-7866LcaNIAY CGF Dressing - as directed Externally daily for 30 days Aug, Activeenteric contrast (will be provided with radiology test) (20 sources)Start: 19-43-3667piaorja contrast (will be provided with radiology test) Indications: Malignant neoplasm of overlapping sites of bladder (HCC) For CT CHESTABD/PEL W IVCON Routine order Administer, As Directed One Time Only, via Oral, Rectal, both Oral and Rectal, Enteric Tube, Stoma or Indwelling Catheter, Enteric Contrast as designated per enteric contrast guidelines 1 each 05/19/2025 ActiveStart: 23-23-0088dgnlumq contrast (will be provided with radiology test) Indications: Malignant neoplasm of urinary bladder, unspecified site (HCC) , Lung nodules , Stage 3a chronic kidney disease (HCC) , Anemia, unsp ecified type , Malignant neoplasm of overlapping sites of bladder (HCC) For CT CHESTABD/PEL W IVCONRoutine order Administer, As Directed One Time Only, via Oral, Rectal, both Oral and Rectal, Enteric Tube, Stoma or Indwelling Catheter, Enteric Contrast as designated per enteric contrast guidelines1 each 01/29/2025 ActiveStart: 44-51-9585fkxxzzk contrast (will be provided with radiology test) Indications: Malignant neoplasm of urinary bladder, unspecified site (HCC) For CT CHESTABD/PEL W IVCON Routine order Administer, As Directed One Time Only, via Oral, Rectal, both Oral and Rectal, Enteric Tube, Stoma or Indwelling Catheter, Enteric Contrast as designated per enteric contrast guidelines 1 Each 10/28/2024 ActiveStart: 21-59-9546nzgbovs contrast (will be provided with radiology test) For CT CHESTABD/PEL W IVCON Routine order Administer, As Directed One Time Only, via Oral, Rectal, both Oral and Rectal, Enteric Tube, Stoma orIndwelling Catheter, Enteric Contrast as designated per enteric contrast guidelines 1 Each 07/01/2024 ActiveFish Oil-DHA-EPA 1,200-144-216 mg cap (20 sources)Fish Oil-DHA-EPA 1,200-144-216 mg cap Take by mouth once daily. ActiveFish Oil-DHA-EPA 1,200-144-216 mg cap Take by mouth once daily. 0 Active Comment on above:Take by mouth once daily.Fish Oils (2 sources)omega-3 (fish oil) 1200 MG capsule Take by mouth in the morning. Activefurosemide 20 mg oral tablet (8 sources)Loop DiureticStart: 03-16-2025 End: 54-65-6429uvju 1 tablet by mouth every twenty-four hours as needed furosemide (LASIX) 20 mg tablet Take 20 mg by mouth at bedtime as needed. 04/07/2025 04/07/2026 ActiveStart: 02-19-2024 End: 18-43-9953bxhuqvtehk 10 mg injection (LASIX)Start: 02-12-2024 End: 15-71-5579ueitlltwbz 10 mg injection (LASIX)iv contrast (will be provided with radiology test) (20 sources)Start: 74-39-6927np contrast (will be provided with radiology test) [...] contrast administration guidelines link. 1 each 05/19/2025 ActiveStart: 03-94-8423cy contrast (will be provided with radiology test) Indications: Malignant neoplasm of urinary bladder, unspecified site (HCC) , Lung nodules , Stage 3a chronic kidney disease (HCC) , Anemia, unspecified type , Malignant neoplasm of overlapping sites of bladder (HCC) CT Chest ABD/PEL-Inject, intraven ously, once for 1 dose.No IV access, insert saline lock prior to the beginning of sedation, infusion, injection of imaging exam. Discontinue saline lock post exam. If Pt. has a central line or IVAD, may access for administration according to line specific nursing protocol. Once exam is complete flush line and de- access according to line specific nursing protocol in the CT contrast administration guidelines link. 1 each 01/29/2025 ActiveStart: 32-20-3335gf contrast (will be provided with radiology test) Indications: Malignant neoplasm of urinary bladder, unspecified site (HCC) CT Chest ABD/PEL-Inject, intravenously, once for 1 dose.No IV access, insert saline lock prior to the beginning of sedation, infusion, injection of imaging exam. Discontinuesaline lock post exam. If Pt. has a central line or IVAD, may access for administration according to line specific nursing protocol. Once exam is complete flush line and de-access according to line specific nursing protocol in the CT contrast administration guidelines link. 1 Each 10/28/2024 ActiveStart: 24-65-6855te contrast (will be provided with radiology test) [...] protocol in the CT contrast administration guidelines link.1 Each 07/01/2024 Activeloratadine 10 mg oral tablet (6 sources)Start: 59-00-4293dyrhmgvlbu (Claritin) 10 MG tablet Take 10 mg by mouth 03/05/2025 Activelosartan potassium 25 mg oral tablet (20 sources)Angiotensin 2 Receptor BlockerStart: 79-18-7651oxlg 1 tablet by mouth once dailyLosartan Active 0 .ROUTE .COMPLEX June 26, 2024 8:50am TAKE 1 TABLET BY MOUTH EVERY DAYStart: 12-96-6007nopy 1 tablet by mouth once dailylosartan 25 mg Tab TAKE 1 TABLET BY MOUTH EVERY DAY Start Date: 04/20/24 Status: Ordered Repeat number: 1Start: 03-30-2024 End: 28-22-2807tpwj 1 tablet by mouth once dailyLosartan 25 mg tablet Active 0 .ROUTE .COMPLEX June 26, 2024 8:50am TAKE 1 TABLET BY MOUTHEVERY DAY Start: 03-30-2024 End: 56-30-3986dsob 1 tablet by mouth once dailyLosartan 25 mg tablet Discontinued 25 MG PO Daily March 30, 2024 12:00am March 30, 2024 5:42pmStart: 04-22-2023 End: 83-88-0925mrza 1 tablet by mouth at bedtimeLosartan 25 mg tablet Discontinued 25 MG PO Bedtime April 22, 2023 12:00am January 01, 2024 1:52pm End: 06-69-3442bdfqksum potassium (LOSARTAN ORAL) Take by mouth once daily. 0 12/31/2023 Discontinued (Dosage adjustment)losartan potassium (LOSARTAN ORAL) Take by mouth once daily. 0 ActiveComment on above:Take by mouth once daily. lubiprostone 0.024 mg oral capsule (16 sources)Chloride Channel ActivatorStart: 56-47-1778unjp 1 capsule by mouth twice dailylubiprostone 24 mcg Cap TAKE 1 CAPSULE BY MOUTH TWICE A DAY FOR 7 DAYS Start Date: 04/20/24 Status: Ordered Repeat number: 1Start: 03-19-2024 End: 86-85-7056ssfq 1 capsule by mouth twice dailyLubiprostone (Amitiza) 24 mcg capsule Discontinued 24 MCG PO Twice daily 14 March 18, 2024 11:00pm July 21, 2024 1:05pmStart: 03-19-2024 End: 68-86-6540gvfs 1 capsule by mouth twice dailyLubiprostone (Amitiza) 24 mcg capsule Discontinued 24 MCG PO Twice daily 14 March 19, 2024 12:00am July 21, 2024 2:05pmStart: 18-60-9362aebm 1 capsule by mouth twice dailyLubiprostone (Amitiza) 24 mcg capsule Active 24 MCG PO Twice daily 14 March 19, 2024 12:00am24 hr mirabegron 50 mg extended release oral tablet (6 sources)beta3-Adrenergic AgonistStart: 74-21-5669gjsw 1 tablet by mouth once dailyMyrbetriq 50 mg oral tablet, extended release 50 mg = 1 tab(s), Oral, Daily, # 30 tab(s), Refills(s) 11, Pharmacy: [facility]/pharmacy #[id number], 179, cm, 04/20/24 13:46:00 EDT, Height/Length Dosing, 83.7, kg, 04/20/24 13:46:00 EDT, Weight Dosing Start Date: 04/20/24 Status: Orderednitrofurantoin, macrocrystals 25 mg / nitrofurantoin, monohydrate 75 mg oral capsule (5 sources)Nitrofuran AntibacterialStart: 02-23-2024 End: 72-07-0237ptag 1 capsule by mouth twice dailynitrofurantoin monohydrate and macrocrystal (MACROBID) 100 mg capsule Take 1 capsule by mouth two times a day for 7 days. 14 capsule 0 02/23/2024 03/01/2024 Activeondansetron 8 mg oral tablet (20 sources)Serotonin-3 Receptor AntagonistStart: 29-70-0444zanllksgxdr 8 mg Tab Refills(s) 0 Start Date: 04/20/24 Status: Ordered Repeat number: 1Start: 01-13-2024 End: 34-41-8998iism 1 tablet by mouth every eight hours as neededondansetron (ZOFRAN) 8 mg tablet Take 1 tablet by mouth every 8 hours as needed for nausea/vomiting. 90 tablet 1 01/13/2024 03/25/2024 Discontinued (Discontinued by Patient)Start: 08-19-2021 End: 15-85-1069jlfg 1 tablet by mouth every eight hours as needed for nausea and vomitingOndansetron 4 mg tablet,disintegrating Discontinued 4 MG PO Q8H as needed for nausea and vomiting 93 August 19, 2021 12:00am April 22, 2023 11:06amComment on above:Take 1 tablet by mouth every 8 hours as needed for nausea/vomiting.polyethylene glycol 3350 52570 mg powder for oral solution (5 sources)Osmotic LaxativeStart: 57-93-7345Yncnbkxgyvyi Glycol 3350 (Miralax) 17 gram/dose powder Active 17 GM PO Daily 238 1 July 21, 2024 12:00am use 238 grams for colonoscopy prep.potassium 75 mg oral tablet (5 sources)Start: 83-55-5599Jrrkabdsx 75 mg tablet Active MG PO August 18, 2024 12:00amrosuvastatin calcium 40 mg oral tablet (20 sources)HMG-CoA Reductase InhibitorStart: 07-16-2024 End: 62-99-7386xxpv 1 tablet by mouth once dailyRosuvastatin 40 mg tablet Active 0 .ROUTE .COMPLEX 90 July 20, 2024 12:36pm TAKE 1 TABLET BYMOUTH EVERY DAYStart: 10-10-2023 End: 10-82-1930Jjyqczokatwf (CRESTOR) tablet 40 mgStart: 06-07-2023 End: 69-77-4657ctjp 1 tablet by mouth once dailyrosuvastatin 40 mg Tab TAKE 1 TABLET BY MOUTH EVERY DAY Start Date: 04/20/24 Status: Ordered Repeat number: 1 Comment on above:Take 40 mg by mouth once daily.sildenafil 50 mg oral tablet (5 sources)Phosphodiesterase 5 InhibitorStart: 20-82-4635twgmlqgbva (Viagra) 50 MG tablet TAKE 1-2 TABLETS BY MOUTH 1 HR BEFORE SEXUAL ACTIVITY. DO NOT EXCEED 2 TABS/24 HRS. 04/07/2025 Activesuper beta prostate (5 sources)Start: 81-36-1982vwglt beta prostate super beta prostate, See Instructions Start Date: 07/16/24 Status: Ordered Repeat number: 1Start: 55-63-9044sqnvx beta prostate super beta prostate, See Instructions Start Date: 07/16/24 Status: Orderedtamsulosin hydrochloride 0.4 mg oral capsule (20 sources)alpha-Adrenergic BlockerStart: 01-57-2117navv 1 capsule by mouth every twenty-four hourstamsulosin (Flomax) 0.4 MG 24 hr capsule Take 0.8 mg by mouth 03/19/2025 ActiveStart: 43-18-2065bffe 2 capsules by mouth once daily tamsulosin 0.4 mg Cap 0.8 mg = 2 cap(s), Oral, Daily, Refills(s) 0 Start Date: 03/19/25 Status: Ordered Repeat number: 1Start: 99-25-5934ibpx 1 capsule by mouth twice dailyTamsulosin 0.4 mg capsule Active 0.4 MG PO Twice daily 180 90 September 08, 2024 1:55pmStart: 01-25-2024 End: 10-28-3180peyt 1 capsule by mouth once daily in the eveningTamsulosin 0.4 mg capsule Discontinued 0 .ROUTE .COMPLEX January 25, 2024 12:05pm September 08, 2024 1:55pm TAKE 1 CAPSULE BY MOUTH EVERY DAY IN THE EVENING FOR 30 DAYS Start: 11-18-2020 End: 37-63-0992skez 0.4 mg by mouth once dailytamsulosin (FLOMAX) 0.4 mg Take 0.4 mg by mouth once daily. 11/18/2020 ActiveComment on above:Take 0.4 mg by mouth.Take 0.4 mg by mouth once daily.triamcinolone acetonide 1 mg/ml topical cream (20 sources)CorticosteroidStart: 01-08-2025 End: 24-40-1732Jkqbnxmdhgopx Acetonide 0.1 % cream Active 1 APPLIC TOPICAL Daily 80 January 08, 2025 9:31amStart: 01-79-7656Xpkxcuntyyekz Acetonide 0.1 % 1 application Externally twice daily for 7 days May, ActiveStart: 82-51-5826Cxjiewgtchqdo Acetonide 0.1 % 1 application Externally twice daily for 7 days May, ActiveStart: 78-56-4998Jlzsorstiejlh Acetonide 0.5 % 1 application Externally two times daily for 30 days Nov, ActiveStart: 72-15-4598Qvhznfpanxedz Acetonide 0.5 % 1 application Externally two times daily for 30 days Nov, ActiveVibegron (Gemtesa) 75 MG tablet (2 sources)Start: 13-76-4329Jyucxvxh (Gemtesa) 75 MG tablet Take 75 mg by mouth 03/19/2025 Activevibegron 75 MG Oral Tablet [Gemtesa] (4 sources)Start: 47-61-9982pmve 1 tablet by mouth once dailyGemtesa 75 mg oral tablet 75 mg = 1 tab(s), Oral, Daily, # 90 tab(s), Refills(s) 3, Pharmacy: [facility], 179, cm, 03/19/25 8:56:00 EDT, Height/Length Dosing, 86.9, kg, 03/19/25 8:56:00 EDT, Weight Dosing Start Date: 03/19/25 Status: Ordered Quantity: 90.0 Unit: tab(s) Repeat number: 4 Indications: Malignant neoplasm of bladder, unspecified; Urge incontinence; Benign prostatic hyperplasia with lower urinary tract symptoms;Start: 03-19-2025 End: 68-11-1249ewdo 1 tablet by mouth once dailyGemtesa 75 mg oral tablet 75 mg = 1 tab(s), Oral, Daily, X 30 day(s), # 30 tab(s), Refills(s) 11, Pharmacy: [facility]/pharmacy #[id number], 179, cm, 03/19/25 8:56:00 EDT, Height/Length Dosing, 86.9, kg, :56:00 EDT, Weight Dosing Start Date: 03/19/25 Stop Date: 03/14/26 Status: Ordered Quantity: 30.0 Unit: tab(s) Repeat number: 12zinc gluconate 50 mg oral tablet (20 sources)zinc gluconate 50 MG tablet 1 (one) time each day at the same time Active Completed/Discontinued Medications MedicationDrug Class(es)DatesSig (Normalized)Sig (Original)albuterol 0.83 mg/ml inhalation solution (20 sources)beta2-Adrenergic AgonistAlbuterol Sulfate (2.5 MG/3ML) 0.083% 3 mL as needed Inhalation every 6 hrs Not-Taking/PRNAlbuterol Sulfate (2.5 MG/3ML) 0.083% 3 mL as needed Inhalation every 6 hrs Not-Takingaluminum hydroxide 40 mg/ml / magnesium hydroxide 40 mg/ml / simethicone 4 mg/ml oral suspension (1 source)Start: 10-10-2023 End: 93-28-2428wjkd 30 mL by mouth every six hours as neededalum/mag hydrox.- simethicone oral suspension 30 mLatorvastatin 80 mg oral tablet (18 sources)HMG-CoA Reductase InhibitorStart: 04-22-2023 End: 77-98-9310gxor 1 tablet by mouth once daily in the eveningAtorvastatin 80 mg Tablet Discontinued 80 MG PO Every evening 30 April 22, 2023 12:00am January 01, 2024 1:52pmCalcium (20 sources)Phosphate Binder, CalciumCalcium 150 MG as directed Orally Not-Taking/PRNCalcium 150 MG as directed Orally Not-TakingcefTRIAXone (20 sources)Cephalosporin AntibacterialStart: 37-66-0529Kyehjbpn 500 mg Oct, 1 grmciprofloxacin 500 mg oral tablet (15 sources)Quinolone AntimicrobialStart: 68-96-7284czhn 1 tablet by mouth every three monthsCipro 500 mg Tab 500 mg = 1 tab(s), Oral, Daily, Take 1 tablet the day before the procedure and 1 tablet after the procedure, every 3 months, # 6 tab(s), Refills(s) 0, Pharmacy: [facility]/pharmacy #[id number], 179, cm, 04/02/25 9:22:00 EDT, Height/Length Dosing, 86.2, kg, 04/02/25 9:22:00 EDT, Weight Dosing Start Date: 06/02/25 Status: Ordered Quantity: 6.0 Unit: tab(s) Repeat number: 1Start: 93-04-9053orgg 1 tablet by mouth every three monthsCipro 250 mg Tab 250 mg = 1 tab(s), Oral, Daily, Take 1 tablet the day before the procedure and 1 tablet after the procedure, every 3 months, # 8 tab(s), Refills(s) 0, Pharmacy: [facility]/pharmacy #[id number], 179, cm, 07/16/24 8:19:00 EDT, Height/Length Dosing, 83, kg, 07/16/24 8:19:00 EDT, Weight Dosing Start Date: 10/30/24 Status: OrderedStart: 65-22-4645isqu 1 tablet by mouth once dailyCipro 250 mg Tab 250 mg = 1 tab(s), Oral, Daily, Take 1 tablet the day before the procedure and 1 tablet after the procedure, # 2 tab(s), Refills(s) 0, [id number] 179, cm, 04/20/2413:46:00 EDT, Height/Length Dosing, 83.7, kg, 04/20/24 13:46:00 EDT, Weight Dosing Start Date: 06/25/24 Status: OrderedStart: 02-21-2024 End: 79-39-0281dghx 1 tablet by mouth twice dailyciprofloxacin HCl (CIPRO) 500 mg tablet Take 1 tablet by mouth two times a day for 7 days. 14 tablet 0 02/21/2024 02/23/2024 Discontinued (Course of therapy completed)Start: 88-95-2882enzl 1 tablet by mouth once dailyCipro 250 mg Tab 250 mg = 1 tab(s), Oral, Daily, Take 1 tablet the day before the procedure and 1 tablet after the procedure, # 6 tab(s), Refills(s) 0, [id number] 178, cm, 09/01/2110:42:00 EST, Height/Length Dosing, 78, kg, 09/01/21 10:42:00 EST, W... Start Date: 12/07/22 Status:OrderedStart: 88-26-3811vcnh 1 tablet by mouth once dailyCipro 250 mg Tab 250 mg = 1 tab(s), Oral, Daily, Take 1 tablet the day before the procedure and 1 tablet after the procedure, # 2 tab(s), Refills(s) 0, [id number] 178, cm, 09/01/2110:42:00 EST, Height/Length Dosing, 78, kg, 09/01/21 10:42:00 EST, W... Start Date: 10/26/22 Status: Ordered Start: 75-84-0959uafs 1 tablet by mouth once dailyCipro 500 mg Tab 500 mg = 1 tab(s), Oral, Daily, Take 1 tablet the day before the procedure and 1 tablet after the procedure, # 2 tab(s), Refills(s) 0, Pharmacy: [facility]/pharmacy #[id number], 178, cm, 09/01/2110:42:00 EST, Height/Length Dosing, 78, kg, 09/01/21 10:42:00 EST, W... Start Date: 03/01/22 Status:OrderedStart: 07-84-1422zoct 1 tablet by mouth once dailyCipro 500 mg Tab 500 mg = 1 tab(s), Oral, Daily, Take 1 tablet the day before procedure and 1 tablet after the procedure, # 2 tab(s), Refills(s) 0, Pharmacy: [id number], 178, cm, 09/01/21 10:42:00 EST, Height/Length Dosing, 78, kg, 09/01/21 10:42:00 EST, We... Start Date: 12/07/21 Status:OrderedCISplatin 40.6 mg in NaCl 0.9% 1,090.6 mL (PLATINOL) (2 sources)Start: 02-19-2024 End: 85-86-2110JLGrmevny 40.6 mg in NaCl 0.9% 1,090.6 mL (PLATINOL)Start: 02-12-2024 End: 75-10-1710HARpsthkn 40.6 mg in NaCl 0.9% 1,090.6 mL (PLATINOL)dexAMETHasone 10 mg in NaCl 0.9% 50 mL (DECADRON) (2 sources)Start: 02-19-2024 End: 39-73-6937aftPODCKawvhp 10 mg in NaCl 0.9% 50 mL (DECADRON)Start: 02-12-2024 End: 81-83-2274ogfJASHQkplys 10 mg in NaCl 0.9% 50 mL (DECADRON)fosaprepitant 150 mg in NaCl 0.9% 250 mL (EMEND) (2 sources)Start: 02-19-2024 End: 66-75-7559xvqcelhocjneh 150 mg in NaCl 0.9% 250 mL (EMEND)Start: 02-12-2024 End: 22-96-0474xyhsugexryvse 150 mg in NaCl 0.9% 250 mL (EMEND)ipratropium bromide 0.042 mg/actuat metered dose nasal spray (20 sources)Anticholinergictake 2 spray(s) nasal route three times daily as neededIpratropium [place] 0.06 % 2 sprays in each nostril Nasally Three times a day Not-Taking/PRNtake 2 spray(s) nasal route three times dailyIpratropium [place] 0.06 % 2 sprays in each nostril Nasally Three times a day Not-Taking levoFLOXacin 500 mg oral tablet (17 sources)Quinolone AntimicrobialStart: 01-31-2024 End: 36-43-5802oafs 1 tablet by mouth once dailyLevofloxacin 500 mg tablet Discontinued 500 MG PO Daily 7 January 31, 2024 12:00am August 14, 2024 8:29amComment on above:Take 1 tablet by mouth every afternoon.Loperamide (20 sources)Opioid Agonist End: 24-55-6951oyzxsmghiv HCl (IMODIUM A-D ORAL) Take by mouth as needed. 0 03/25/2024 Discontinued (Discontinued by Patient)loperamide HCl (IMODIUM A-D ORAL) Take by mouth as needed. 0 Activeloperamide HCl (IMODIUM A-D ORAL) Take by mouth. 0 ActiveComment on above:Take by mouth.50 ml magnesium sulfate 40 mg/ml injection (2 sources)Start: 02-19-2024 End: 05-16-7397fdgooiocy sulfate iv piggyback in sterile water 2 g 50 mLStart: 02-12-2024 End: 19-85-2759tymggiinw sulfate iv piggyback in sterile water 2 g 50 mL nitroglycerin 0.4 mg sublingual tablet (11 sources)Nitrate VasodilatorStart: 04-22-2023 End: 97-39-5216Hpopsggbikxmm 0.4 mg tablet, sublingual Discontinued 0.4 MG SUBLINGUAL Q5M as needed for chest painApril 22, 2023 12:00am January 01, 2024 1:52pm do not exceed 3 doses per tnyplor71 hr oxybutynin chloride 10 mg extended release oral tablet (20 sources)Cholinergic Muscarinic Antagonisttake 1 tablet by mouth every twenty-four hoursoxyBUTYnin Chloride ER 10 MG 1 tablet Orally Once a day Not-Taking/PRN5 ml palonosetron 0.05 mg/ml injection (2 sources)Serotonin-3 Receptor AntagonistStart: 02-19-2024 End: 35-00-5125sbdbrjcudgpr 0.25 mg injection (ALOXI)Start: 02-12-2024 End: 32-62-5148jtdmzhuzrtas 0.25 mg injection (ALOXI)Polyethylene Glycol 3350 (Miralax) 17 gram/dose powder (5 sources)Start: 07-21-2024 End: 57-62-3970Kaanqwmkkgoq Glycol 3350 (Miralax) 17 gram/dose powder Discontinued 17 GM PO Daily 510 30 July 21, 2024 12:00am August 14, 2024 8:29amStart: 07-21-2024 End: 40-30-7784Sbnkqsnrclap Glycol 3350 (Miralax) 17 gram/dose powder Discontinued 17 GM PO Daily 510 30 2023 11:00pm August 14, 2024 7:29ampotassium chloride 20 meq extended release oral tablet (4 sources)Start: 83-78-6567wqtp 1 tablet by mouth twice dailypotassium chloride 20 mEq ER Tab 20 mEq = 1 tab(s), Oral, BID, Prophylaxis Start Date: 12/05/23 Status: Orderedprochlorperazine 10 mg oral tablet (20 sources)PhenothiazineStart: 01-13-2024 End: 17-26-6694tguf 1 tablet by mouth every six hours as neededprochlorperazine (COMPAZINE) 10 mg tablet Take 1 tablet by mouth every 6 hours as needed. 100 tablet 1 01/13/2024 03/25/2024 Discontinued (Discontinued by Patient)Comment on above:Take 1 tablet by mouth every 6 hours as needed.Psyllium (20 sources)Psyllium Not-Taking/PRNPsyllium Not-TakingPsyllium ActiverifAXIMin 550 mg oral tablet (2 sources)Rifamycin Antibacterial End: 50-33-6000nsiw 1 tablet by mouth three times dailyrifAXIMin (Xifaxan) 550 mg tablet Take 1 tablet (550 mg) by mouth 3 times a day. 03/31/2025 Discontinued (Med List Cleanup)1000 ml sodium chloride 9 mg/ml injection (4 sources)Start: 02-19-2024 End: 68-10-1078ZmUj 0.9% iv bolus 1,000 mLStart: 02-12-2024 End: 17-50-9067PmXj 0.9% iv bolus 1,000 mLterbinafine 250 mg oral tablet (15 sources)Allylamine AntifungalStart: 40-62-3027Wjxxfgtewza HCl 1 % 1 application Externally twice daily for 14 days Mar, ActiveStart: 04-12-2023 End: 49-64-4988eofx 1 tablet by mouth at bedtimeTerbinafine Hcl 250 mg tablet Discontinued 250 MG PO Bedtime April 22, 2023 12:00am January 01, 2024 1:53pm ticagrelor 90 mg oral tablet (20 sources)Start: 71-80-6975yxlr 1 tablet by mouth every twelve hoursBrilinta (ticagrelor) 90 mg oral tablet 60 EA, TAKE 1 TABLET BY MOUTH EVERY 12 HOURS FOR 30 DAYS, Refills(s) 0 Start Date: 05/20/23 Status: Ordered Repeat number: 1Start: 04-22-2023 End: 57-67-0768rgre 1 tablet by mouth twice dailyTicagrelor (Brilinta) 90 mg Tablet Discontinued 90 MG PO Twice daily 180 90 April 22, 2023 12:00am January 01, 2024 1:53pmvitamin b12 0.1 mg oral tablet (2 sources)Vitamin B12 End: 41-31-2134xqrx 2 tablets by mouth once dailycyanocobalamin (VITAMIN B-12) 100 mcg tab Take 200 mcg by mouth once daily. 0 12/31/2023 Discontinued (Discontinued by Patient)Comment on above:Take 200 mcg by mouth once daily.Zinc (4 sources)take 1 tablet by mouth once dailyZinc 50 MG 1 tablet Orally Once a day Not-Taking Problems Active Problems Problem ClassificationProblemDateDocumented DateEpisodic/ChronicAcquired foot deformities (2 sources)Hallux valgus (acquired), right foot; Translations: [Hallux valgus (acquired)]10-99-2589XqcdkqrSifzaiiz foot deformities (2 sources)Acquired deformity of toe of left foot; Translations: [Acquired deformities of toe(s), unspecified,left foot]14-28-5544BqyaljwtGmygumwg foot deformities (2 sources)Acquired deformity of toe of right foot; Translations: [Acquired deformities of toe(s), unspecified, right foot]01-04-3556DbdbwikxBmeou bronchitis (3 sources)Acute bronchitis due to Mycoplasma pneumoniae; Translations: [Acute bronchitis]08-85-1596LiregvamGulsd myocardial infarction (20 sources)Myocardial infarction; Translations: [Non-ST elevation (NSTEMI) myocardial infarction]Onset: 10-24-2023 Resolved: 138484-94-9626ZlyjnyiGmjtowx on above:Problem List clean-up per request of Phys. EHR CmteAllergic reactions (20 sources)Asteatotic eczema; Translations: [Other specified dermatitis] 05-45-4038BykcavxoGbqdsf of bladder (20 sources)Malignant tumor of urinary bladder; Translations: [Malignant neoplasm of bladder, unspecified]Onset: 01-08-2022 Resolved: 41-81-7224YwoelnwYtonqsv on above:Dx: 2019, recurrent 2020, second recurrence hemotherapy/Radiation therapy - ancer of bladder (20 sources)Personal history of malignant neoplasm of bladder; Translations: [H/O: malignant neoplasm]Onset: 79-63-7668JmcrqedvQpmqnh of colon (20 sources)Malignant tumor of colon; Translations: [Malignant neoplasm of colon, unspecified site]Onset: 053245-15-0900TpcvxjqAedqnra on above: Problem List clean-up per request of Phys. EHR CmteCardiac dysrhythmias (20 sources)Bradycardia; Translations: [Bradycardia, unspecified]EpisodicChronic kidney disease (20 sources)Chronic kidney disease; Translations: [Chronic kidney disease, unspecified]Onset: 099703-32-6546PpzbvuxKkfsgds kidney disease (1 source)Chronic kidney disease; Translations: [Stage 3a chronic kidney disease (HCC)]Onset: 23-41-1811Cxfwydy ulcer of skin (20 sources)Pressure ulcer of sacral region, stage 1; Translations: [Skin ulcer] ChronicComplications of surgical procedures or medical care (6 sources)Postprocedural intestinal obstruction, unspecified as to partial versus complete; 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] EpisodicConditions associated with dizziness or vertigo (20 sources)Dizziness; Translations: [Dizziness and giddiness]EpisodicCongestive heart failure; nonhypertensive (20 sources)Acute systolic heart failure; Translations: [Acute systolic (congestive) heart failure]ChronicCoronary atherosclerosis and other heart disease (20 sources)Coronary arteriosclerosis; Translations: [Coronary atherosclerosis of unspecified type of vessel, [place] or graft]Onset: 06-25-2023 Resolved: 74-85-5040DugwairGxtalcp on above:LHC, PCI/stent OM branch of the LCx - 3Deficiency and other anemia (20 sources)Chronic anemia; Translations: [Anemia in other chronic diseases classified elsewhere]ChronicDeficiency and other anemia (2 sources)Anemia in other chronic diseases classified elsewhere; Translations: [Anemia in other chronic diseases classified elsewhere]ChronicDeficiency and other anemia (20 sources)Anemia; Translations: [Anemia, unspecified]80-59-6854Zaztbkho Deficiency and other anemia (8 sources)Anemia, unspecified; Translations: [ANEMIA UNSPECIFIED]Onset: 94-19-5756MgoqzzrlRojohamx mellitus without complication (20 sources)Hyperglycemia; Translations: [Hyperglycemia, unspecified]Onset: 16-65-8400KyivnjlyDmuttiirc of lipid metabolism (20 sources)Hyperlipidemia; Translations: [Hyperlipidemia, unspecified]Onset: 812015-35-5150XhksbavN Codes: Adverse effects of medical drugs (2 sources)Adverse effect of antihyperlipidemic and antiarteriosclerotic drugs, initial encounterEpisodicE Codes: Cut/pierceb (1 source)Contact with other powered hand tools and household machinery, initial encounter; Translations: [CONTACT OTH POWER HT AND HH MACH INIT]Onset: 41-40-2036ShkhmldhTulpopsns hypertension (20 sources)Essential hypertension; Translations: [Essential (primary) hypertension]Onset: 96-95-6238LarbilkVfqfnft on above:Problem List clean-up per request of Phys. EHR CmteGenitourinary symptoms and ill-defined conditions (20 sources)Urinary incontinence; Translations: [Unspecified urinary incontinence]Onset: 310314-13-2878FipqimpFqtclhekomwka symptoms and ill- defined conditions (20 sources)Barrera hematuria; Translations: [Gross hematuria]Onset: 03-08-2022 12-08-0277IisyqcrcPfrtkuylvqk of prostate (20 sources)Benign prostatic hypertrophy with outflow obstruction; Translations: [Nocturia due to benign prostatic hypertrophy]Onset: 525881-60-1378Ydmfvtb Immunizations and screening for infectious disease (1 source)Encounter for immunization; Translations: [ENCOUNTER FOR IMMUNIZATION] Onset: 07-01-4802VmcnqjlxYcleyjp (4 sources)Tinea pedis; Translations: [Onychomycosis]EpisodicNeoplasms of unspecified nature or uncertain behavior (20 sources)Neoplasm of glzbuyf80-34-3078IjmxvcqnApwn wounds of extremities (4 sources)Laceration without foreign body of right hand, initial encounter; Translations: [LACERATION W/O FB RT HAND INITIAL]Onset: 09-09-3612Cehtzvny Osteoarthritis (20 sources)Osteoarthritis of right hip joint; Translations: [Unspecified osteoarthritis, unspecified site]Onset: 419836-55-9321KxtpivrGetcd aftercare (2 sources)Other nursing home (current) drug therapy; Translations: [OTH BLOWER INSTALLER CURRENT DRUG THERAPY]Onset: 71-33-1361BmstonlxCasff aftercare (2 sources)Drug therapy finding; Translations: [Other nursing home (current) drug therapy]26-44-1825WfqqxwqmErtyz and ill-defined heart disease (4 sources)Left ventricular cardiac dysfunction; Translations: [Heart disease, unspecified]ChronicOther and ill-defined heart disease (1 source)Heart disease, unspecified; Translations: [Heart disease, unspecified] Onset: 47-13-6757GbaizcwXmxdp and ill-defined heart disease (5 sources)Heart disease; Translations: [Heart disease, unspecified]Onset: 227010-83-1704ChnqorrEefkk and unspecified benign neoplasm (1 source)Hemangioma of skin and subcutaneous tissueEpisodicOther connective tissue disease (20 sources)Disorder of soft tissue; Translations: [Other specified soft tissue disorders]EpisodicOther connective tissue disease (7 sources)Other specified soft tissue disorders; Translations: [OTHER SPEC SOFT TISSUE DISORDERS]Onset: 68-51-9447DguynuanLsyzv connective tissue disease (2 sources)Myalgia, unspecified siteEpisodicOther diseases of bladder and urethra (4 sources)Bladder disorder, unspecified; Translations: [BLADDER DISORDER UNSPECIFIED]Onset: 94-27-2877LaaztwpWndxh diseases of bladder and urethra (1 source)Other specified disorders of bladder; Translations: [OTHER SPECIFIED DISORDERS BLADDER]Onset: 29-76-1337HslsfokMjite diseases of bladder and urethra (1 source)Diverticulum of bladder; Translations: [DIVERTICULUM OF BLADDER]Onset: 39-44-9587OkauryrZtkgh diseases of bladder and urethra (2 sources)Unspecified bulbous urethral stricture, male; Translations: [UNSP BULBOUS URETHRAL STRCT MALE]Onset: 74-92-4341YbagzjkbXpxty diseases of bladder and urethra (1 source)Unspecified urethral stricture, male, unspecified site; Translations: [UNSP URETHRAL STRCT MALE UNSP SITE]Onset: 06-86-1958HualiutrIhokh diseases of kidney and ureters (20 sources)Cyst of kidney; Translations: [Cyst of kidney, acquired]Onset: 563376-36-3492XlywghnoKheur diseases of veins and lymphatics (20 sources)Peripheral venous insufficiency; Translations: [Venous insufficiency (chronic) (peripheral)]Onset: 774642-26-1842IfayfkcxQkcwu diseases of veins and lymphatics (10 sources)Venous insufficiency (chronic) (peripheral); Translations: [Venous (peripheral) insufficiency, unspecified]Onset: 91-80-5518LsmndskcZfpmm ear and sense organ disorders (2 sources)Bilateral hearing loss; Translations: [Unspecified hearing loss, bilateral]Onset: 451694-49-4190YkuiruiCravl gastrointestinal disorders (6 sources)Irritable bowel syndrome with diarrhea; Translations: [Irritable bowel syndrome with diarrhea]30-02-4059TtxowboNspyf gastrointestinal disorders (1 source)Irritable bowel syndrome with diarrhea; Translations: [Irritable bowel syndrome]50-55-7697KnahwjmDllsx gastrointestinal disorders (20 sources)H/O: ulcerative colitis; Translations: [Personal history of other diseases of the digestive system]Onset: 410228-74-4822EmhpzqtaOrjwi gastrointestinal disorders (2 sources)Personal history of other diseases of the digestive system; Translations: [Personal history of other diseases of digestive system]Episodic Other gastrointestinal disorders (1 source)Irregular bowel habits; Translations: [Other specified symptoms and signs involving the digestive system and abdomen]EpisodicOther gastrointestinal disorders (11 sources)Diarrhea; Translations: [Diarrhea, unspecified]34-23-1654Ocmatnea Comment on above:Problem List clean-up per request of Phys. EHR CmteOther gastrointestinal disorders (1 source)Diarrhea, unspecifiedEpisodicOther gastrointestinal disorders (2 sources)Change in bowel habitEpisodicOther gastrointestinal disorders (4 sources)Constipation; Translations: [Constipation, unspecified]EpisodicOther gastrointestinal disorders (1 source)Dark stools; Translations: [Other fecal abnormalities]02-07-2024 EpisodicOther gastrointestinal disorders (7 sources)Chronic constipation; Translations: [Other constipation]03-19-2024 EpisodicOther gastrointestinal disorders (7 sources)History of inflammatory bowel disease; Translations: [Personal history of other diseases of the digestive system]25-63-2230RwjajituKzfpu gastrointestinal disorders (5 sources)Other constipation; Translations: [Constipation, unspecified] 79-83-5851AlepalcfUuklc gastrointestinal disorders (6 sources)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; Translations: [Gastroenteritis and colitis due to radiation]23-36-4267MsgautfhOykdq gastrointestinal disorders (1 source)Gastroenteritis and colitis due to radiation; Translations: [Gastroenteritis and colitis due to radiation]48-46-6747PsvckxvbKergo lower respiratory disease (1 source)Pulmonary granuloma; Translations: [Pulmonary fibrosis, unspecified] 27-97-9334JlonsfrRzjyf lower respiratory disease (1 source)Pulmonary fibrosis, unspecified; Translations: [Lung granuloma (HCC)] Onset: 66-37-2153QifppwdHrymc lower respiratory disease (9 sources)Multiple nodules of lung; Translations: [Other nonspecific abnormal finding of lung field]10-45-4091VeyiabydDgtfp lower respiratory disease (6 sources)Nodule of lung; Translations: [Solitary pulmonary nodule]10-28-2024 EpisodicComment on above:CT: 1.1cm, 0.6cm RML - ET/CT: not FDG avid nodules - T: 1.1cm RUL, 0.6cm RML - 09/2024,PET/CT: not FDG avid nodules - 09/2024,CT: less conspicuous RUL nodule, subcentimeter nodules - 01/2025Other lower respiratory disease (1 source)Solitary pulmonary nodule; Translations: [Pulmonary nodule, left] Onset: 11-44-0536XxrrrgsnFkclt lower respiratory disease (1 source)Other nonspecific abnormal finding of lung field; Translations: [Lung nodules]Onset: 08-02-6492NshmgrwkHqzox male genital disorders (5 sources)Male erectile dysfunction, unspecified; Translations: [Erectile dysfunction]Onset: 25-35-9076NzzswpwApwwr male genital disorders (20 sources)Disorder of male genital organ; Translations: [Hydrocele]Onset: 921000-87-1456WxsauaboKptvv male genital disorders (20 sources)Hydrocele; Translations: [Hydrocele, unspecified]23-25-5351Beoduodi Other male genital disorders (2 sources)Hydrocele, unspecified; Translations: [Hydrocele, left]EpisodicOther male genital disorders (1 source)Hydrocele of testis; Translations: [Hydrocele, unspecified]Onset: 19-96-8430KyenqyutIlqqo nervous system disorders (20 sources)Carpal tunnel syndrome; Translations: [Carpal tunnel syndrome, right upper limb]ChronicOther nervous system disorders (2 sources)Idiopathic progressive polyneuropathy; Translations: [Idiopathic progressive neuropathy]16-86-0675EowpxwbPgxzn nervous system disorders (2 sources)Carpal tunnel syndrome of right wrist; Translations: [Carpal tunnel syndrome, right upper limb]Onset: 365804-24-4045WunlsucArvgb nervous system disorders (20 sources)Trigeminal neuralgia; Translations: [Trigeminal neuralgia]Onset: 036405-39-0058BgfhplrrUdmmv non-traumatic joint disorders (20 sources)Hip pain; Translations: [Pain in right hip]Onset: 07-16-2025 77-02-6920ThqnhqwmOneza nutritional; endocrine; and metabolic disorders (2 sources)Body mass index (BMI) 26.0-26.9, adult; Translations: [Body mass index (BMI) 26.0-26.9, adult]Onset: 38-83-2970QwfmozukMbmcs nutritional; endocrine; and metabolic disorders (2 sources)Body mass index (BMI) 27.0-27.9, adult; Translations: [Body mass index (BMI) 27.0-27.9, adult]Onset: 60-21-0963ZfwadtzxAhusc upper respiratory disease (1 source)Allergic rhinitis, unspecified; Translations: [Allergic rhinitis, cause unspecified]14-72-2892QgbefewYfdfefysoj and visceral atherosclerosis (2 sources)Atherosclerosis of aorta; Translations: [Atherosclerosis of aorta] Onset: 652353-88-8885AqyisyjVsgjmhrjf by nonmedicinal substances (1 source)Toxic effect of unspecified spider venom, accidental (unintentional), initial encounterEpisodicRegional enteritis and ulcerative colitis (1 source)Ulcerative colitis, unspecified, without complications; Translations: [ULCERATIVE COLITIS UNS W/O COMP]Onset: 14-39-9987MocxklpTlbjyjsz codes; unclassified (20 sources)History of excision of intestinal structure; Translations: [Acquired absence of other specified parts of digestive tract]EpisodicResidual codes; unclassified (7 sources)Acquired absence of other specified parts of digestive tract; Translations: [ACQ ABSENCE OTH PART DIGESTV TRACT]Onset: 65-69-1953Ugrvpocz Residual codes; unclassified (7 sources)Localized edema; Translations: [LOCALIZED EDEMA]Onset: 03-28-2022 EpisodicResidual codes; unclassified (1 source)Edema of lower extremity; Translations: [Localized edema]02-17-2024 EpisodicResidual codes; unclassified (1 source)Bladder absent; Translations: [Acquired absence of other parts of urinary tract]64-65-3173GxbqzmjyNkwijtzx codes; unclassified (1 source)Acquired absence of other parts of urinary tract; Translations: [Acquired absence of organ, urinarybladder]Onset: 21-41-5403VuryvhlkMgweyjro codes; unclassified (2 sources)Body mass index 20-24 - normal; Translations: [Body mass index (BMI) 24.0-24.9, adult]Onset: 436087-17-2506QruqyghiFzsp and subcutaneous tissue infections (11 sources)Carbuncle of buttock; Translations: [Pilonidal cyst without abscess] EpisodicSpondylosis; intervertebral disc disorders; other back problems (20 sources)Lumbar spondylosis; Translations: [Inflammation of sacroiliac joint] Onset: 379932-75-1839VvbxmxmBetodcxoxcdn (20 sources)Asymptomatic microscopic boktgkooo24-86-7048Btfyzmkpymtr (20 sources)Body mass index 20-24 - fnfwau49-50-7100Cmxwjmseghye (2 sources)CONTACT W/AND (SUSP) EXPOS COVID-19; Translations: [CONTACT W/AND (SUSP) EXPOS COVID-19]Onset: 33-35-5034Dsluccu tract infections (20 sources)Urinary tract infectious disease; Translations: [Urinary tract infection, site not specified]Onset: 455392-41-6527MeyldxevVjxkpfg on above:Problem List clean-up per request of Phys. EHR CmteViral infection (4 sources)COVID-19; Translations: [COVID-19]Onset: 04-09-2022 Past or Other Problems Problem ClassificationProblemDateDocumented DateEpisodic/ChronicAbdominal pain (7 sources)Generalized abdominal pain; Translations: [Generalized abdominal pain]Onset: 54-51-6909MxeesbwcXarxzq of colon (20 sources)Personal history of other malignant neoplasm of large intestine; Translations: [History of malignant neoplasm of colon]Onset: 53-06-6499Qmohpmqn Comment on above:Dx: 1980sPreoperative Chemoradiation,Coronary atherosclerosis and other heart disease (20 sources)Stented coronary artery; Translations: [Presence of coronary angioplasty implant and graft]Onset: 06-25-2023 Resolved: 142410-77-4849RlfhfakwDypevbueey obstruction without hernia (20 sources)Stricture of colon; Translations: [Other intestinal obstruction unspecified as to partial versus complete obstruction]Onset: 09-30-2019 21-26-9095LlobttmxZfrqt diseases of bladder and urethra (1 source)Other urethral stricture, male, unspecified site; Translations: [OTH URETHRAL STRCT MALE UNSPEC SITE]Onset: 92-53-0066LvettztgXjjgs ear and sense organ disorders (2 sources)Excessive cerumen in ear canal ; Translations: [Impacted cerumen, bilateral]Onset: 554619-58-1116RhioqybtXtvqy gastrointestinal disorders (7 sources)Constipation, unspecified; Translations: [CONSTIPATION UNSPECIFIED] Onset: 75-12-2610CjmvgwxuDcfkn nervous system disorders (2 sources)Atypical facial pain; Translations: [Atypical facial pain]Onset: 18-88-8287GtprzirbBblir nervous system disorders (2 sources)Atypical facial pain; Translations: [Atypical facial pain]Onset: 458798-57-1840IqcxgehzNwztf nutritional; endocrine; and metabolic disorders (10 sources)Overweight in adulthood with body mass index of 25 or more but less than 30; Translations: [Overweight]Onset: 596993-24-8840LntpxahbNkvstqhy codes; unclassified (6 sources)Never smoked any substance; Translations: [Other specified health status]Onset: 507319-15-1044KdzwjwtwIxjwoeaz codes; unclassified (9 sources)Localized edema; Translations: [Localized edema]Onset: 03-16-2025 41-00-8416VyjjpyvnWwbenxxuxyu; intervertebral disc disorders; other back problems (2 sources)Disorder of sacrum; Translations: [Sacrococcygeal disorders, not elsewhere classified]Onset: 932953-40-4400FrbarszjLzddhmpbvica (5 sources)colon ca resection( Confirmed )22-77-8246Klhqsyffeixi (18 sources)colon ca gqqyvpess89-44-5125Fahknrxitpyt (1 source)CONTACT W/AND (SUSP) EXPOS COVID-19; Translations: [CONTACT W/AND (SUSP) EXPOS COVID-19]Onset: 59-99-1866Grgdccbaqgnb (4 sources)Never smoked tobacco; Translations: [Never a smoker]Unclassified (3 sources)Onset: 11-20-2023 Resolved: Results Test NameValueInterpretationReference RangeFacilityNo Panel Informationon 89-48-8635Jodtjldpj Study observation (narrative)[facility] HealthcareXR Foot - left 2 Viewson 98-09-7442Bgmzhev Result: XRAY LEFT FOOT: AP/OBL- Healing fx DP near complete/nondisplNOMS HealthcareNOMS HealthcareXR Foot - right 2 Viewson 23-28-3801Pvahnxy Result: XRAY RIGHT FOOT: AP/OBL- Mild distal HAV with IPJ deformityNOMS HealthcareNOMS HealthcareReminderson 92-95-9053AfynofsyqJqnktpdul From: Lucero Sutherland To: EU - Recalls Dietrich; Sent: 06/04/2025 09:28:14 EDT Show up: 09/20/2025 09:28:00 EST Subject: cysto/ud/fish/cytol Due Date/Time: 10/18/2025 09:28:00 EST Reminder/Recall Patient is due in Nov 2025 for 6 month cysto/ud/fish/cytol (bt ck)[facility] 27-05-8700XIEMIbdzoi Visit (RADTSA) AIDENKENNEDY CABAN ([id number]) 1935 M Date Time Provider Department 05/19/25 [...] Tube, Stoma or Indwelling (more content not included)...NormalParkview HealthCNOVSPon 05-49-9899QPBCMGMvxxi (SP) Office (HEMASA) KENNEDY KONG ([id number]) 1935 M Date Time Provider Department 05/19/25 9:00 AM EUGENE CHAPARRO During your visit today, we recorded the following information about you: Temperature Pulse Respiration Blood pressure 97.1 degrees 68/minute 16/minute 136/64 Weight Height 93.2 kg 1.784 m Euegne Chaparro MD 05/22/2025 10:08 AM Signed NAME: Kennedy Kong CLINIC NO.: [id number] DATE OF SERVICE: May 19, 2025 ([facility]) Some elements in this clinic note that are critical to medical decision making have been carefully reviewed and included from a prior clinic note dated: January 29, 2025 (tera) Referring Provider: Dr. 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 and has been [...] 0.6 cm right mi (more content not included)...NormalMer[facility] W Auto Differential panel (Bld) on 40-53-8249Vqhfrmajz (Bld) [#/Vol]0.04 10*3/uLNINFCherrington Hospital Basophils/100 WBC (Bld)0.9 %Cherrington HospitalDifferential cell count method Nom (Bld)AutoCleveland ClinicEosinophils (Bld) [#/Vol]0.69 10*3/uLHighNINFCherrington HospitalEosinophils/100 WBC (Bld)15.2 %[facility]rington HospitalErythrocyte distribution width (RBC) [Ratio]12.9 %11.5 - 15.0 %[facility]rington HospitalHematocrit (Bld) [Volume fraction]38.4 %Low39.0 - 51.0 %[facility]rington HospitalHemoglobin (Bld) [Mass/Vol]12.5 g/dLLow13.0 - 17.0 g/dLCherrington HospitalImmature granulocytes (Bld) [#/Vol]NINF Cherrington HospitalImmature granulocytes/100 WBC (Bld)0.2 %[facility] Interpretation and review of laboratory resultsAbnormalCOhioHealth Hardin Memorial Hospital Lymphocytes (Bld) [#/Vol]1.15 10*3/uLCherrington HospitalLymphocytes/100 WBC (Bld) 25.3 %[facility] CenterH (RBC) [Entitic mass]30.6 pg26.0 - 34.0 pgCOhioHealth Grove City Methodist HospitalHC (RBC) [Mass/Vol]32.6 g/dL30.5 - 36.0 g/dLSalem Regional Medical CenterV (RBC) [Entitic vol]94.1 fL80.0 - 100.0 fLClevelformerly [facility]oot[facility] ClinicMonocytes (Bld) [#/Vol]0.54 10*3/uLNINFCherrington HospitalMonocytes/100 WBC (Bld)11.9 %[facility] Neutrophils (Bld) [#/Vol]2.12 10*3/uLCherrington HospitalNeutrophils/100 WBC (Bld) 46.5 %C[facility]rington HospitalNucleated RBC (Bld) [#/Vol]NINFCleveland Olmsted Medical CenterNucleated RBC/100 WBC (Bld) [Ratio]0 %/100 WBCCherrington HospitalPlatelet mean volume (Bld) [Entitic vol]9 fL9.0 - 12.7 fLCOhioHealth Hardin Memorial HospitalPlatelets (Bld) [#/Vol]176 10*3/uL Cherrington HospitalRBC (Bld) [#/Vol]4.08 10*6/uLLow4.20 - 6.00 m/uLCherrington Hospital WBC (Bld) [#/Vol]4.55 10*3/uLPomerene HospitalBasophils (Bld) [#/Vol]0.04 10*3/uLNormal<0.11CBrown Memorial Hospital on above:Order Comment: Specimen Type: BLOOD SPECIMENOrdering Facility: [facility] Address:[address] [place], [place] [address]Performed By: #### 46078- 8 ####[facility] LABCLIA [id number] [place], [place] [address]Waertwtvt/100 WBC (Bld)0.9 %NormalAvita Health System Galion Hospital on above:Order Comment: Specimen Type: BLOOD SPECIMENOrdering Facility: [facility] Address:[address] [place], [place] [address]Performed By: #### 26435-2 ####[facility] LABCLIA [id number] [place], [place] [address]Iqzievugiumg cell count method Nom (Bld)AutoNormalCBrown Memorial Hospital on above:Order Comment: Specimen Type: BLOOD SPECIMENOrdering Facility: [facility] Address:[address] [place], [place] [address]Performed By: #### 01919-0 ####[facility] LABCLIA [id number] [place], [place] [address]Okdueceekrv (Bld) [#/Vol]0.69 10*3/uLHigh<0.46[facility] on above:Order Comment: Specimen Type: BLOOD SPECIMENOrdering Facility: [facility] Address:[address] [place], [place] [address]Performed By: #### 91091-4 ####[facility] LABCLIA [id number] [place], [place] [address]Twhaylrpzub/100 WBC (Bld)15.2 %NormalAvita Health System Galion Hospital on above:Order Comment: Specimen Type: BLOOD SPECIMENOrdering Facility: [facility] Address:[address] [place], [place] [address]Performed By: #### 74584-0 ####[facility] LABCLIA [id number] [place], [place] [address]Wzyfrzfkyay distribution width (RBC) [Ratio]12.9 %Normal 11.5-15.0[facility] on above:Order Comment: Specimen Type: BLOOD SPECIMENOrdering Facility: [facility] Address:[address] [place], [place] [address]Performed By: #### 07750-2 ####[facility] LABIA [id number] [place] [address] Hematocrit (Bld) [Volume fraction]38.4 %Low39.0-51.0[facility] Comment on above:Order Comment: Specimen Type: BLOOD SPECIMENOrdering Facility: [facility] Address:[address] [place] [address] Performed By: #### 21464-5 ####[facility] LABIA [id number] [place], [place] [address]Odhppzzcfk (Bld) [Mass/Vol]12.5 g/dLLow13.0-17.0[facility] on above:Order Comment: Specimen Type: BLOOD SPECIMENOrdering Facility: [facility] Address:[address] [place], [place] [address]Performed By: #### 27216-8 ####[facility] LABIA [id number] [place], [place] [address]Ddiottrl granulocytes (Bld) [#/Vol]10*3/uLNormal<0.10 [facility] on above:Order Comment: Specimen Type: BLOOD SPECIMENOrdering Facility: [facility] Address:[address] [place], [place] [address]Performed By: #### 56434-7 ####[facility] LABIA [id number] [place], [place] [address]Otkdqwli granulocytes/100 WBC (Bld)0.2 %NormalAvita Health System Galion Hospital on above: Order Comment: Specimen Type: BLOOD SPECIMENOrdering Facility: [facility] Address:[address] [place], [place] [address]Performed By: #### 55405- 8 ####[facility] LABIA [id number] [place], [place] [address]Frdlursxmap (Bld) [#/Vol]1.15 10*3/uLNormal1.00-4.00 [facility] on above:Order Comment: Specimen Type: BLOOD SPECIMENOrdering Facility: [facility] Address:[address] [place], [place] [address]Performed By: #### 43011-1 ####[facility] LABIA [id number] [place], [place] [address]Cqpzuylaqjg/100 WBC (Bld)25.3 %NormalAvita Health System Galion Hospital on above:Order Comment: Specimen Type: BLOOD SPECIMENOrdering Facility: [facility] Address:[address] [place], [place] [address]Performed By: #### 27915-7 ####[facility] LABIA [id number] [place], [place] [address]DXZ (RBC) [Entitic mass]30.6 uqGpoijj12.0-34.0[facility] on above:Order Comment: Specimen Type: BLOOD SPECIMENOrdering Facility: [facility] Address:[address] [place], [place] [address]Performed By: #### 72388-5 ####[facility] LABIA [id number] [place], [place] [address]EYHM (RBC) [Mass/Vol]32.6 g/oOEnddse01.5-36.0[facility] on above: Order Comment: Specimen Type: BLOOD SPECIMENOrdering Facility: [facility] Address:[address] [place], [place] [address]Performed By: #### 18181- 8 ####[facility] LABCLIA [id number] [place], [place] [address]MOV (RBC) [Entitic vol]94.1 pDOcbdum52.0-100.0[facility] on above:Order Comment: Specimen Type: BLOOD SPECIMENOrdering Facility: [facility] Address:[address] [place], [place] [address]Performed By: #### 23569-5 ####[facility] LABCLIA [id number] [place], [place] [address]Anjnchecd (Bld) [#/Vol]0.54 10*3/uLNormal<0.87[facility] on above:Order Comment: Specimen Type: BLOOD SPECIMENOrdering Facility: [facility] Address:[address] [place], [place] [address]Performed By: #### 02659- 8 ####[facility] LABCLIA [id number] [place], [place] [address]Qvhglxima/100 WBC (Bld)11.9 %NormalAvita Health System [facility] Hospital on above:Order Comment: Specimen Type: BLOOD SPECIMENOrdering Facility: [facility] Address:[address] [place], [place] [address]Performed By: #### 88494-2 ####[facility] LABCLIA [id number] [place], [place] [address]Josmxywnfhp (Bld) [#/Vol]2.12 10*3/uLNormal1.45-7.50[facility] on above:Order Comment: Specimen Type: BLOOD SPECIMENOrdering Facility: [facility] Address:[address] [place], [place] [address]Performed By: #### 60014-3 ####[facility] LABCLIA [id number] [place], [place] [address]Hiakhtqwxwv/100 WBC (Bld)46.5 %NormalAvita Health System [facility] Hospital on above:Order Comment: Specimen Type: BLOOD SPECIMENOrdering Facility: [facility] Address:[address] [place], [place] [address]Performed By: #### 85834-9 ####[facility] LABCLIA [id number] [place], [place] [address]Ztokjsusb RBC (Bld) [#/Vol] 10*3/uLNormal<0.01[facility] on above:Order Comment: Specimen Type: BLOOD SPECIMENOrdering Facility: [facility] Address:[address] [place], [place] [address]Performed By: #### 24410-1 ####[facility] LABIA [id number] [place], [place] [address]Rjmqaaprv RBC/100 WBC (Bld) [Ratio]0.0 /100 WBCNormal [facility] on above:Order Comment: Specimen Type: BLOOD SPECIMENOrdering Facility: [facility] Address:[address] [place], [place] [address]Performed By: #### 20680-0 ####[facility] LABIA [id number] [place], [place] [address]Zylyvrkn mean volume (Bld) [Entitic vol]9.0 fLNormal9.0-12.7CBrown Memorial Hospital on above:Order Comment: Specimen Type: BLOOD SPECIMENOrdering Facility: [facility] Address:[address] [place] [address] Performed By: #### 13955-6 ####[facility] LABIA [id number] [place], [place] [address]Lnptkyvyv (Bld) [#/Vol]176 10*3/dAXuidpt847-819LkxwqfywyAvita Health System [facility] Hospital on above:Order Comment: Specimen Type: BLOOD SPECIMENOrdering Facility: [facility] Address:[address] [place], [place] [address]Performed By: #### 16552-3 ####[facility] LABCLIA [id number] [place], [place] [address]WYB (Bld) [#/Vol]4.08 10*6/uLLow4.20-6.00[facility] on above:Order Comment: Specimen Type: BLOOD SPECIMENOrdering Facility: [facility] Address:[address] [place], [place] [address]Performed By: #### 05284-3 ####[facility] LABCLIA [id number] [place], [place] [address]XOM (Bld) [#/Vol]4.55 10*3/uL Normal3.70-11.00[facility] on above:Order Comment: Specimen Type: BLOOD SPECIMENOrdering Facility: [facility] Address:[address] [place], [place] [address]Performed By: #### 27257-5 ####[facility] LABCLIA [id number] [place], [place] [address]ZX ABD/PEL W IVCONon 44-50-2785TF ABD/PEL W IVCON* * *Final Report* * * DATE OF EXAM: May 14 2025 9:02AM [facility] [place] 0530 - CT ABD/PEL W IVCON [...] was performed concurrently and is dictated separately. Window Trimmer Apprentice (topogram) images: Unremarkable. IMPRESSION: No metastatic disease [...] any questions regarding this interpretation, please call [phone]. If you are unable to reach us at the number above, please feel free to contact [facility] eRadiology at [phone]. [id number] Ridge Medical Center Abdomen and Pelvis W contrast Jassi 74-86-1520ZYJAYUOKOI: No metastatic disease in the abdomen or pelvis. Transcribe Date/Time: May 14 2025 1:26P Dictated by: JASWINDER DICKERSON MD This examination was interpreted and the report reviewed and electronically signed by: JASWINDER DICKERSON MD on May 14 2025 1:34PM EST Thank you for allowing us to participate in the care of your patient. Should there be any questions regarding this interpretation, please call [phone]. If you are unable to reach us at the number above, please feel free to contact [facility] eRadiology at [phone].DIVISION OF RADIOLOGY* * *Final Report* * * DATE OF EXAM: May 14 2025 9:02AM [facility] [place] 0530 - CT ABD/PEL W IVCON [...] was performed concurrently and is dictated separately. Window Trimmer Apprentice (topogram) images: Unremarkable. DIVISION OF RADIOLOGYProvider, [facility] [place] - 05/14/2025 * * *Final Report* * * DATE OF EXAM: May 14 2025 9:02AM [facility] [place] 0530 - CT ABD/PEL W IVCON [...] was performed concurrently and is dictated separately. Window Trimmer Apprentice (topogram) images: Unremarkable. IMPRESSION IMPRESSION: No metastatic [...] any questions regarding this interpretation, please call [phone]. If you are unable to reach us at the number above, please feel free to contact [facility] eRadiology at [phone]. [facility] Abdomen and Pelvis W contrast IVOrdered By: Ccf Provider on 27-59-6629Ucwiyxikm ClinicCT CHEST W IVCONon 68-95-6924UZ CHEST W IVCON* * *Final Report* * * DATE OF EXAM: May 14 2025 9:02AM [facility] [place] 0539 - CT CHEST W IVCON [...] was performed concurrently and is dictated separately. Window Trimmer Apprentice (topogram) images: Unremarkable. IMPRESSION: No metastatic disease [...] any questions regarding this interpretation, please call [phone]. If you are unable to reach us at the number above, please feel free to contact [facility] eRadiology at [phone]. [id number] HealthCT Chest W contrast Jassi [id number]: No metastatic disease in the chest. Transcribe Date/Time: May 14 2025 1:13P Dictated by: JASWINDER DICKERSON MD This examination was interpreted and the report reviewed and electronically signed by: JASWINDER DICKERSON MD on May 14 2025 1:25PM EST Thank you for allowing us to participate in the care of your patient. Should there be any questions regarding this interpretation, please call [phone]. If you are unable to reach us at the number above, please feel free to contact [facility] Center[facility] at [phone].DIVISION OF RADIOLOGY* * *Final Report* * * DATE OF EXAM: May 14 2025 9:02AM [facility] [place] 0539 - CT CHEST W IVCON [...] was performed concurrently and is dictated separately. Window Trimmer Apprentice (topogram) images: Unremarkable. DIVISION OF RADIOLOGYProvider, [facility] [place] - 05/14/2025 * * *Final Report* * * DATE OF EXAM: May 14 2025 9:02AM [facility] [place] 0539 - CT CHEST W IVCON [...] was performed concurrently and is dictated separately. Window Trimmer Apprentice (topogram) images: Unremarkable. IMPRESSION IMPRESSION: No metastatic [...] any questions regarding this interpretation, please call [phone]. If you are unable to reach us at the number above, please feel free to contact [facility] eRadiology at [phone]. Pomerene HospitalComprehensive metabolic 2000 panelOrdered By: Julio Way on 73-51-7104Dgsevqm [Mass/Vol]4.1 g/dL3.9 - 4.9 g/dLConception Junction ClinicALP [Catalytic activity/Vol]70 U/L38 - 113 U/LCleveland ClinicALT [Catalytic activity/Vol]16 U/L10 - 54 U/LCleveland ClinicAnion gap [Moles/Vol]11 mmol/L8 - 15 mmol/LCleveland ClinicAST [Catalytic activity/Vol]18 U/L14 - 40 U/LCleveland ClinicBilirubin [Mass/Vol]0.3 mg/dL0.2 - 1.3 mg/dLCherrington Hospital Calcium [Mass/Vol]9.4 mg/dL8.5 - 10.2 mg/dLCherrington HospitalChloride [Moles/Vol] 105 mmol/L98 - 107 mmol/LCleveland ClinicCO2 [Moles/Vol]26 mmol/L22 - 30 mmol/L [facility] HospitalCreatinine [Mass/Vol]0.95 mg/dL0.73 - 1.22 mg/dLCherrington Hospital GFR/1.73 sq M.predicted among non-blacks MDRD (S/P/Bld) [Vol rate/Area]77 mL/min/{1.73_m2}- PINFCAvita Health System Galion Hospital on above:Estimated Glomerular Filtration Rate (eGFR) is calculated using the 202 CKD-EPI creatinine equation. This equation utilizes serum creatinine, sex, and age as parameters. The creatinine assay has traceable calibration to isotope dilution-mass spectrometry. Refer to KDIGO guidelines for clinical interpretation. In patients with unstable renal function, e.g. those with acute kidney injury, the eGFRmay not accurately reflect actual GFR.Glucose [Mass/Vol]106 mg/zJHkuv18 - 99 mg/dL [facility] on above:The [place] Diabetes Association (ADA) provides guidance for cutoff values for fasting glucose andrandom glucose. The ADA defines fasting as no caloric intake for at least 8 hours. Fasting plasma gl ucose results between 100 to 125 mg/dL indicate [...] Standards of Medical Care in Diabetes 2016, [place] [employer] Association. Diabetes Care. 2016.39(Suppl 1). Interpretation and review of laboratory resultsAbnormalCleveland ClinicPotassium [Moles/Vol]3.9 mmol/L3.7 - 5.1 mmol/LClevelformerly [facility] ClinicProtein [Mass/Vol]6.8 g/dL 6.3 - 8.0 g/dLBellevue Hospitalodium [Moles/Vol]142 mmol/L136 - 144 mmol/L [facility] HospitalUrea nitrogen [Mass/Vol]24 mg/dL9 - 24 mg/dLMercy Health Springfield Regional Medical CenterComprehensive metabolic 2000 panelon 34-97-1626Rkmcnja [Mass/Vol]4.1 g/dLNormal3.9-4.9CBrown [facility] Hospital on above:Order Comment: Specimen Type: BLOOD SPECIMEN [facility] Address: [address] [place], [place] [address]Vfcvumcch By: #### 45912-1 #### [facility] CLIA [id number] [address] [place] [address] [place] [address]VWB [Catalytic activity/Vol]70 U/FHusyvb11-757VvgvdvfgaAvita Health System [facility] on above:Order Comment: Specimen Type: BLOOD SPECIMEN [facility] Address: [address] [place], [place] [address]Performed By: #### 46982-0 #### [facility] CLIA [id number] [address] [place], [place] [address]QHF [Catalytic activity/Vol]16 U/ODalxlv20-72FcoqpazymAvita Health System [facility] Hospital on above:Order Comment: Specimen Type: BLOOD SPECIMEN [facility] Address: [address] [place], [place] [address]Performed By: #### 91136-3 #### [facility] CLIA [id number] [address] [place], [place] [address]Ipkwa gap [Moles/Vol]11 mmol/LNormal8-15[facility] on above:Order Comment: Specimen Type: BLOOD SPECIMEN [facility] Address: [address] [place], [place] [address]Performed By: #### 85727-1 #### [facility] CLIA [id number] [address] [place], [place] [address]LDQ [Catalytic activity/Vol]18 U/ZTpglqm37-60YssluewvnAvita Health System [facility] Hospital on above:Order Comment: Specimen Type: BLOOD SPECIMEN [facility] Address: [address] [place], [place] [address]Performed By: #### 97572-3 #### [facility] CLIA [id number] [address] [place], [place] [address]Vvovamgpi [Mass/Vol]0.3 mg/dLNormal0.2-1.3CBrown Memorial Hospital on above:Order Comment: Specimen Type: BLOOD SPECIMEN [facility] Address: [address] [place], [place] [address]Performed By: #### 81841-3 #### [facility] CLIA [id number] [address] [place], [place] [address]Jfimroe [Mass/Vol]9.4 mg/dLNormal8.5-10.2CBrown Memorial Hospital on above:Order Comment: Specimen Type: BLOOD SPECIMEN [facility] Address: [address] [place] [id number] By: #### 39612-7 #### [facility] CLIA [id number] [address] [place], [place] [address]Dmlpsmmh [Moles/Vol]105 mmol/NQrwoyh23-150KhhcdzuekAvita Health System [facility] on above:Order Comment: Specimen Type: BLOOD SPECIMEN [facility] Address: [address] [place], [place] [address]Performed By: #### 11045-6 #### [facility] CLIA [id number] [address] [place] [address]QH7 [Moles/Vol]26 mmol/SWvedmi86-47HjzuqsvmmParkview Health Comment on above:Order Comment: Specimen Type: BLOOD SPECIMEN [facility] Address: [address] [place], [place] [address]Performed By: #### 06226-4 #### [facility] CLIA [id number] [address] [place] [address]Sgyqxoeuyt [Mass/Vol]0.95 mg/dLNormal0.73-1.22[facility] on above:Order Comment: Specimen Type: BLOOD SPECIMEN Ordering Facility: [facility] Address: [address] [id number] By: #### 75260-3 #### [facility] CLIA [id number] [address] [place] [address] 70063qXZZpg SerPlBld CKD-EPI 717426 mL/min/1.73m???Normal>=60 [facility] on above:Order Comment: Specimen Type: BLOOD SPECIMEN Ordering Facility: [facility] Address: [address] [place], [place] [address]Result Comment: Estimated Glomerular Filtration Rate (eGFR) is calculated using the 2020 CKD-EPI cre atinine equation. This equation utilizes serum creatinine, sex, and age as parameters. The creatinine assay has traceable calibration to isotope dilution- mass spectrometry. Refer to KDIGO guidelines for clinical interpretation. In patients with unstable renal function, e.g. those with acute kidney injury, the eGFR may not accurately reflect actual GFR.Performed By: #### 01666-1 #### [facility] CLIA [id number] [address] [place] [address] 39755Iplleap [Mass/Vol]106 mg/fYNcde94-19IrklhxicsParkview Health Comment on above:Order Comment: Specimen Type: BLOOD SPECIMEN Ordering Facility: [facility] Address: [address], [place] [address]S[place] Comment: The [place] Diabetes Association (ADA) provides guidance for cutoff [...] Standards of Medical Care in Diabetes 2016, [place] [employer]. Diabetes Care. 2016.39(Suppl 1).Performed By: #### 42552-9 #### [facility] CLIA [id number] [address] [place] [address] 06782Cobijrigs [Moles/Vol]3.9 mmol/LNormal3.7-5.1CBlanchard Valley Health System Bluffton HospitalComment on above:Order Comment: Specimen Type: BLOOD SPECIMEN Ordering Facility: [facility] Address: [address] [place], [place] [address]Bxofxeeys By: #### 24263-4 #### [facility] CLIA [id number] [address] [place] [address] 85249Fcsluuv [Mass/Vol]6.8 g/dLNormal6.3-8.0[facility] on above:Order Comment: Specimen Type: BLOOD SPECIMEN Ordering Facility: [facility] Address: [address] [place] [address]Icchtzend By: #### 04578-2 #### [facility] CLIA [id number] [address], [place] [address]Vjccxw [Moles/Vol]142 mmol/TGifldi479-624QcdpnyudmAvita Health System [facility] on above:Order Comment: Specimen Type: BLOOD SPECIMEN Ordering Facility: [facility] Address: [address] [place] [address] 76984Lnrlsdlkz By: #### 92831-2 #### [facility] CLIA [id number] [address], [place] [address]Vnxl nitrogen [Mass/Vol]24 mg/dLNormal9-24[facility] on above:Order Comment: Specimen Type: BLOOD SPECIMEN Ordering Facility: [facility] Address: [address] [place] [address] 63448Hjsdmnagr By: #### 57900-6 #### [facility] CLIA [id number] [address] [place] [address]IRSJTEGLgd 28-93-6271Kcgmesko [Mass/Vol]70.1 ng/mL30.3 - 565.7 ng/mLCleveland ClinicFOLATE, SERUMon 27-00-8873Vwzmvl [Mass/Vol]ng/mL4.7 - PINF ng/mLCleveland Olmsted Medical CenterComment on above:A result of > 20 ng/mL is not necessarily indicative of a pathologic or treatable condition: it reflects a limitation of the test methodology. Assay reference range: 4.8 to 24.2 ng/mL. Suitable for detection of folate deficiency. Reference: Folate III (Folate III) [package insert V 1.0 [place]]. [employer] [facility], [place], [place]: August 2015. Ferritin SerPl-mCncon 70-27-4923Paqodgmd [Mass/Vol]70.1 ng/wGHsfpeq94.3-565.7 [facility] on above:Order Comment: Specimen Type: BLOOD SPECIMENOrdering Facility: [facility] Address:[address] [place], [place] [address]Performed By: #### 65933-8, 2275-4, 8, 2132-06 ####[facility] LABCLIA [id number] [address] AMERICAFolate SerPl-mCncon 05-14-2025 Folate [Mass/Vol]ng/mLNormal>4.7CBrown [facility] on above:Order Comment: Specimen Type: BLOOD SPECIMENOrdering Facility: [facility] Address:[address] [place], [place] [address]Result Comment: A result of > 20 ng/mL is not necessarily indicative of a pathologic or treatable condition: it reflects a limitation of the test methodology. Assay reference range: 4.8 to 24.2 ng/mL. Suitable for detection of folate deficiency. Reference: Folate III (Folate III) [package insert V 1.0 [place]]. [facility], [place], [place]: August 2015.Performed By: #### 03390-8, 4, 8, 2132-06 ####[facility] LABCLIA [id number] [address] STATES OF KET[facility] HEALTH MIAMISBURGIron and Iron binding capacity panelon 66-36-4021Yqoxybiypdfxxr and review of laboratory resultsNormalClevelformerly [facility] ClinicIron [Mass/Vol]82 ug/dL41 - 186 ug/dLCherrington HospitalIron binding capacity [Mass/Vol]270 ug/dL232 - 386 ug/dLCherrington HospitalIron/TIBC [Molar ratio]30.4 % 15.0 - 57.0 %Pomerene HospitalIron [Mass/Vol]82 ug/nNZckozi69-735 [facility] on above:Order Comment: Specimen Type: BLOOD SPECIMEN Ordering Facility: [facility] Address: [address] [place], [place] [address]Performed By: #### 63711-1 #### [facility] CLIA [id number] [address] [place], [place] [address]Syxr binding capacity [Mass/Vol]270 ug/rJZharol435-594 [facility] on above:Order Comment: Specimen Type: BLOOD SPECIMEN Ordering Facility: [facility] Address: [address] [place], [place] [address]Performed By: #### 05420-8 #### [facility] CLIA [id number] [address] [place] [address] 70635Uxzv/TIBC [Molar ratio]30.4 %Mirhzr52.0-57.0[facility] on above:Order Comment: Specimen Type: BLOOD SPECIMEN Ordering Facility: [facility] Address: [address] [place], [place] [address]Performed By: #### 13622-2 #### [facility] CLIA [id number] [address] [place] [address]55[address]Bw Panel Informationon 53-55-8813Mraiidqbpxuxno and review of laboratory resultsNormalCleveland OhioHealth Nelsonville Health CenterRadiology Study observation (narrative)Cherrington HospitalVITAMIN B12on 28-87-3848Zakdopsno (Vitamin B12) [Mass/Vol]797 pg/mL232 - 1245 pg/mLClevelAshtabula County Medical CenterVit B12 SerPl-mCncon 81-96-9910Kgesatnba (Vitamin B12) [Mass/Vol]797 pg/dCGvorwk463-8760 [facility] on above:Order Comment: Specimen Type: BLOOD SPECIMEN Ordering Facility: [facility] Address: [address] [place], [place] [address]Performed By: #### 59446-7 #### [facility] CLIA [id number] [address] [place] [address] 56656Xatqgczkci Visit Summaryon 22-38-9784Wqxrazjodz Visit Summary Ambulatory Visit Summary ALKA KONGEDUARDO Blood :1935 Visit Date:04/02/2025 Ambulatory Visit Instructions Your Diagnosis ED (erectile dysfunction) Urge incontinence Bladder cancer BPH with obstruction/lower urinary tract symptoms Your Care Team Attending Physician - LAUREL ESCOBEDO, TRINA [place] Primary Care Physician - SAMEER KUMARI, LESA This Is Your Medications List Non-Formulary Medication (super beta prostate) losartan (losartan 25 mg Tab) lubiprostone (lubiprostone 24 mcg Cap) ondansetron (ondansetron 8 mg Tab) rosuvastatin (rosuvastatin 40 mg Tab) tamsulosin (tamsulosin 0.4 mg Cap) ticagrelor (Brilinta (ticagrelor) 90 mg oral tablet) vibegron (Gemtesa 75 mg oral tablet) Procedures Performed Radiation therapy care (03/02/2024), TURBT - Transurethral resection of bladder tumor (12/05/2023),Endoscopic destruction of bladder tumor by laser (12/13/2020), [...] Follow-Up Appointments Saturday 8:30 AM EDT With: KARLO CHOI, Kylie Restrepo Where: [facility] [address] You Need to Schedule the Following Appointments Follow Up with [facility] When: Comments: For procedure as scheduled. [...] and is not considered a disease. ED mayinclude: ??? Inability to get an erection. ??? [...] of enough hardness o (more content not included)...NormalCarolinas Continuecare Hospital At Universityer Sinai Hospital Of BaltimoreUrology Office/Clinic Noteon 12-09-0320Ozvvjiv Office/Clinic Note Urology Office/Clinic Note Chief Complaint [...] reviewed all of his contributing factors including thosethat are within his control to change and those which are not. Pt has decided that he would like totry oral medications - risks/benefits, side effects,interactions, and proper use discussed He prefers to start Viagra and [facility] Pt does see Dr Morgan, cardiology [place]. Will obtain clearance from their office to start PD5. Ordered: Complex E&M Add on G2211 E&M of Est. Patient Moderate 30-39 Min 35460 2. Urge incontinence (N39.41: Urge incontinence) See note 03/19/25 for details. Waiting to start Gemtesa/vibegron from [facility] (was $600 at [facility] locally). If unable, next steps could be HBO at [facility] vs Condom Cath (discussed today - pt declined). Ordered: Complex E&M Add on G2211 E&M of Est. Patient Moderate 30-39 Min 06472 3. Bladder cancer (C67.9: Malignant neoplasm of bladder, unspecified) See note 03/19/25 for details. Scope scheduled for 06/14/25. Ordered: Complex E&M Add on G2211 E&M of Est. Patient Moderate 30-39 Min 94556 4. 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 Continues Flomax BID. Ordered: 67833 Measure Post Void residual urine and/or bladder capacity by US- non-imaging Complex E&M Add on G2211 E&M of Est. Patient Moderate 30-39 Min 21602 Urnls Dip Stick Auto w/o Microscopy POC 86809 Orders: vibegron, 75 mg = 1 tab(s), Oral, Daily, X 30 day(s), # 30 tab(s), Refills(s) 11, Pharmacy: [facility]/pharmacy #[id number], 179, cm, 03/19/25 8:56:00 EDT, Height/Length Dosing, 86.9, kg, 03/19/25 8:56:00 EDT, Weight Dosing Follow-up With When Contact Information [facility] Additional Instructions: For procedure as scheduled. Patient [...] TURBT - Transurethral resection of bladder tumor (12/05/2023),Endoscopic destruction of bladder tumor by laser (12/13/2020), [...] Known Allergies Social History (more content not included)...[facility] SystemComment on above: Result Comment: Electronically Signed By: TRINA BARRAGAN PA-C\Date and Time Signed: 04/02/2510:12 EDTReminderson 70-43-4103BxskizqsqTvkngebwi From: Lucero Sutherland To: [facility] - Recalls Dietrich; Sent: 04/01/2025 14:21:12 EDT Show up: 09/20/2025 14:20:00 EST Subject: cysto/fish/cytol Due Date/Time: 10/18/2025 14:21:00 EST Reminder/Recall Patient is due in Nov 2025 for 6 month cysto/fish/cytol, bt ckNormalUC HealthindersReminders From: Lucero Sutherland To: [facility] - Recalls Dietrich; Sent: 10/29/2024 13:50:44 EST Show up: 01/19/2025 13:50:00 EDT Subject: cysto/fish/cytol Due Date/Time: 02/15/2025 13:50:00 EDT Reminder/Recall Patient is due in March 2025 for 4 month cysto/fish/cytol, bt ck Patient is due in 6 month for cysto 05/2025 Patient has appt 03/19/25, will sched Cysto at that time.LG Patient sched for 06/14/25 in [place] office.[facility] Ambulatory Visit Summaryon 32-87-5926Nwcfykyxmy Visit SummaryAmbulatory Visit Summary KENNEDY KONG :1935 Visit Date:03/19/2025 Ambulatory Visit Instructions Your Diagnosis BPH with obstruction/lower urinary tract symptoms Urge incontinence Bladder cancer Your Care Team Attending Physician - TRINA [...] TURBT - Transurethral resection of bladder tumor (12/05/2023),Endoscopic destruction of bladder tumor by laser (12/13/2020), [...] Follow-Up Appointments Saturday 8:30 AM EDT With: KARLO CHOI, Kylie Restrepo Where: [facility] [address] [place] [address]- Medications What How Much When Instructions New vibegron (Gemtesa 75 mg oral tablet) 1 Tablets By Mouth Every day Duration: 30 Days Refills: 11Pickup at [facility]/pharmacy #[id number] Unchanged losartan (losartan 25 mg Tab) TAKE [...] physician if questions or concerns Pharmacy Information [facility]/pharmacy #[id number]: [address], [place] [phone] What How Much When Comments Stop Taking [...] you for choosing us for your care. [facility] SystemUrology Office/Clinic Noteon 33-95-3077Hafvwhc Office/Clinic NoteUrology Office/Clinic Note Chief Complaint incontinence HPI Staff [...] that he's taking it, he in fact isnot. However he is not a good candidate for anticholinergic d/t severe bowel issues including strictures, constipation. Therefore we discussed trial Gemtesa. Sent 30d rx to [facility] as well as 90d rx [facility] Risks/benefits/side effects discussed. If cost- prohibitive, I did briefly discuss hyperbaric oxygen therapy. Pt does drive himself and would be willing to consider this at [facility]. Would need to discuss w PRW. Ordered: vibegron, 75 mg = 1 tab(s), Oral, Daily, # 90 tab(s), Refills(s) 3, Pharmacy: [facility], 179, cm, 03/19/25 8:56:00 EDT, Height/Length Dosing, 86.9, kg, 03/19/25 8:56:00 EDT, Weight Dosing 68881 Measure Post Void residual urine and/or bladder capacity by US- non-imaging Body Mass Index (BMI) documented 3008F Current tobacco non-user 1036F Depression Screening Negative 3352F E&M of Est. Patient Moderate 30-39 Min 13740 Influenza immunization status assessed 1030F Medication list [...] invasion identified. No definitive lymphovascular invasion noted. [facility] ER visit 12/14/23 due to gross [...] also referred pt to Dr. Heath at [facility] for possible bowel strictures. Pt saw Dr. Grajeda 07/01/24 who reports to continue surveillance cystos with Dr. Dietrich (due in Oct) and pt to complete scans in 3 mon (more content not included)...[facility] Comment on above:Result Comment: Electronically Signed By: TRINA BARRAGAN PA-C\.juliet\Date and Time Signed: 03/19/2513:56 EDTUS venous duplex [facility] 03-17-2025 US venous duplex [facility] Main [place] [address] [place] [address] Ultrasound Report Signed Patient: Kennedy Kong MR#: [id number] : 1935 Acct:[id number] Age/Sex: 89 / M ADM Date: 03/16/25 Loc: Room: Type: [facility] CLI Attending Dr: Theodora Love APRN Ordering Provider: [...] color-flow and augmentation. US/US venous duplex LE IMPRESSION: NO EVIDENCE OF DEEP VENOUS THROMBOSIS IN THE LEFT LOWER EXTREMITY. NO SUPERFICIAL THROMBOPHLEBITIS WAS NOTED. Impression dictated by: Randal Smith M.D. 03/17/2025 10:29 AM Dictation Location: [place] [address] Tech: Sandee Shanta Transcribed By: LIZ 03/17/25 1029 Dictated By: Randal Smith MD 03/17/25 1028 Signed By: 03/17/25 1029[facility] Physician GroupCNOVSPon 39-57-4538GGOCTXKymju ([place]) Office ([place]) KENNEDY KONG ([id number]) 1935 M Date Time Provider Department 01/29/25 9:00 AM [facility] CHAPARRO During your visit today, we recorded the following information about you: Temperature Pulse Respiration Blood pressure 97.1 degrees 69/minute 18/minute 138/68 Weight 85.5 kg Eugene Chaparro MD 01/29/2025 12:52 PM Signed NAME: Bette Kennedy CLINIC NO.: [id number] DATE OF SERVICE: January 29, 2025 (Deann) [...] December 05, 2023, was identified as having drrp-hdcrf-uqrglh invasive papillary bladder cancer and has been [...] Other nonemergent findings. 0 (more content not included)...NormalParkview HealthCNPNon 20-60-7143XJMIGadyfkntq ([facility]AP) WIDMAN,VINCENT L ([id number]) 1935 Date Time Provider Department 01/29/25 EUGENE CHAPARRO [facility] During your visit today, we recorded the following information about you: Lali Byrd 01/29/2025 9:22 AM Signed Please call patient with today's ct scans. Thank you Joanie Caraballo RN 01/29/2025 12:54 PM Signed Eugene Chaparro MD P [facility] Triage Pool Miroslava - scans were clear! [...] designated per enteric contrast guidelines - Catheter ([facility] EXTERNAL CATH) misc 1 Device once [...] 10/29/2024 Encounter Status:Closed by JOANIE CARABALLO on 01/29/25NoPremier Health Upper Valley Medical CenterCT ABD/PEL W IVCONon 50-77-2953KW ABD/PEL W IVCON* * *Final Report* * * DATE OF EXAM: Jan 29 2025 8:52AM [facility] [place] 0530 - CT ABD/PEL W IVCON [...] performed concurrently and will be dictated separately. Window Trimmer Apprentice (topogram) images: No additional findings. IMPRESSION: 1. [...] any questions regarding this interpretation, please call [phone]. If you are unable to reach us at the number above, please feel free to contact [facility] eRadiology at [phone]. [id number] Ridge Medical Center Abdomen and Pelvis W contrast Jassi 51-04-0379KXVSTIZIXA: 1. Stable postoperative appearance to the abdomen [...] any questions regarding this interpretation, please call [phone]. If you are unable to reach us at the number above, please feel free to contact [facility] eRadiology at [phone].DIVISION OF RADIOLOGY* * *Final Report* * * DATE OF EXAM: Jan 29 2025 8:52AM [facility] [place] 0530 - CT ABD/PEL W IVCON [...] performed concurrently and will be dictated separately. Window Trimmer Apprentice (topogram) images: No additional findings. DIVISION OF RADIOLOGYProvider, [facility] [place] - 01/29/2025 * * *Final Report* * * DATE OF EXAM: Jan 29 2025 8:52AM [facility] [place] 0530 - CT ABD/PEL W IVCON [...] performed concurrently and will be dictated separately. Window Trimmer Apprentice (topogram) images: No additional findings. IMPRESSION IMPRESSION: [...] any questions regarding this interpretation, please call [phone]. If you are unable to reach us at the number above, please feel free to contact [facility] eRadiology at [phone]. [facility] Abdomen and Pelvis W contrast IVOrdered By: Ccf Provider on 02-24-0620Ypqslzfmj ClinicCT CHEST W IVCONon 61-26-5710TV CHEST W IVCON* * *Final Report* * * DATE OF EXAM: Jan 29 2025 8:52AM [facility] [place] 0539 - CT CHEST W IVCON [...] performed concurrently and will be dictated separately. Window Trimmer Apprentice (topogram) images: No additional findings. IMPRESSION: 1. [...] any questions regarding this interpretation, please call [phone]. If you are unable to reach us at the number above, please feel free to contact [facility] at [phone]. [id number] HealthCT Chest W contrast Jassi 84-90-1294RKNVTNJFNH: 1. There has been interval resolution of [...] any questions regarding this interpretation, please call [phone]. If you are unable to reach us at the number above, please feel free to contact [facility] eRadiology at [phone].DIVISION OF RADIOLOGY* * *Final Report* * * DATE OF EXAM: Jan 29 2025 8:52AM [facility] [place] 0539 - CT CHEST W IVCON [...] performed concurrently and will be dictated separately. Window Trimmer Apprentice (topogram) images: No additional findings. DIVISION OF RADIOLOGYProvider, [facility] [place] - 01/29/2025 * * *Final Report* * * DATE OF EXAM: Jan 29 2025 8:52AM [facility] [place] 0539 - CT CHEST W IVCON [...] performed concurrently and will be dictated separately. Window Trimmer Apprentice (topogram) images: No additional findings. IMPRESSION IMPRESSION: [...] any questions regarding this interpretation, please call [phone]. If you are unable to reach us at the number above, please feel free to contact [facility] eRadiology at [phone]. Pomerene HospitalNo Panel Informationon 13-45-6355Pkoryfvdt Study observation (narrative)Cherrington HospitalBasophils Auto (Bld) [#/Vol]on 83-40-4071Qdkhbocfe (Bld) [#/Vol]Automated basophil count<0.11Martin [facility] HospitalBasophils/100 WBC Auto (Bld)on 01-75-5424Vjdbtyfws/100 WBC (Bld) Automated basophil %Martin Memorial HospitalBlood manual differential comment interpretation narrativeon 46-24-1009Gwknsh differential comment Joshua (Bld) [Interp]Blood manual differential comment interpretation narrative Martin Memorial HospitalCBC W Auto Differential panel (Bld)on 06-31-0305Tpdsmlbvg (Bld) [#/Vol]10*3/uLNormal<0.11CBlanchard [facility] Comment on above:Order Comment: Specimen Type: BLOOD SPECIMEN [facility] Address: [address] [place], [place] [address]Performed By: #### 28501-3 #### [facility] CLIA [id number] [address] [place], [place] [address]Thfkgfexi/100 WBC (Bld)0.4 %NormalParkview Health Comment on above:Order Comment: Specimen Type: BLOOD SPECIMEN [facility] Address: [address] [place], [place] [address]Performed By: #### 50515-9 #### [facility] CLIA [id number] [address] [place], [place] [address]Kihftzmnqdwq cell count method Nom (Bld)AutoNormalClevelCentral Harnett HospitalComment on above:Order Comment: Specimen Type: BLOOD SPECIMEN [facility]ing Facility: [facility] Address: [address] [place], [place] [address]Performed By: #### 72525-3 #### [facility] CLIA [id number] [address] [place], [place] [address]Wfziwouqggm (Bld) [#/Vol]0.24 10*3/uLNormal<0.46[facility] on above:Order Comment: Specimen Type: BLOOD SPECIMEN [facility]ing Facility: [facility] Address: [address] [place], [place] [address]Performed By: #### 71684-3 #### [facility] CLIA [id number] [address] [place], [place] [address]Zpugrqbmnqt/100 WBC (Bld)4.8 %NormalParkview Health Comment on above:Order Comment: Specimen Type: BLOOD SPECIMEN [facility] Address: [address] [place], [place] [address]Performed By: #### 67756-6 #### [facility] CLIA [id number] [address] [place], [place] [address]Shokddcpzph distribution width (RBC) [Ratio]13.4 %Normal 11.5-15.0[facility] on above:Order Comment: Specimen Type: BLOOD SPECIMEN [facility]: [facility] Address: [address] [place], [place] [address]Performed By: #### 54021-8 #### [facility] CLIA [id number] [address] [place] [address]Dtzqzhykwh (Bld) [Volume fraction]38.5 %Low39.0-51.0[facility] on above:Order Comment: Specimen Type: BLOOD SPECIMEN [facility]ing [facility] Address: [address] [place], [place] [address]Performed By: #### 70526-2 #### [facility] CLIA [id number] [address] [place] [address]Fzlukflkyf (Bld) [Mass/Vol]12.5 g/dLLow13.0-17.0[facility] on above:Order Comment: Specimen Type: BLOOD SPECIMEN [facility]ing [facility]: [facility] Address: [address] [place], [place] [address]Performed By: #### 19431-0 #### [facility] CLIA [id number] [address], [place] [address]Lvzqqcao granulocytes (Bld) [#/Vol]10*3/uLNormal<0.10[facility] on above:Order Comment: Specimen Type: BLOOD SPECIMEN [facility] Address: [address] [place] [address]Performed By: #### 38195-6 #### [facility] CLIA [id number] [address] [place] [address] 58924Zbnnutgj granulocytes/100 WBC (Bld)0.2 %NormalAvita Health [facility] on above:Order Comment: Specimen Type: BLOOD SPECIMEN [facility]ing Facility: [facility] Address: [address] [place], [place] [address]Performed By: #### 37690-5 #### [facility] CLIA [id number] [address] [place] [address] 66260Symslzxyhik (Bld) [#/Vol]1.33 10*3/uLNormal1.00-4.00[facility] on above:Order Comment: Specimen Type: BLOOD SPECIMEN Ordering Facility: [facility] Address: [address] [place], [place] [address]Performed By: #### 89662-4 #### [facility] CLIA [id number] [address] [place] [address] 29621Vnhbkfdvvol/100 WBC (Bld)26.8 %NormalAvita Health System [facility] Hospital on above:Order Comment: Specimen Type: BLOOD SPECIMEN Ordering Facility: [facility] Address: [address] [place], [place] [address]Performed By: #### 48236-3 #### [facility] CLIA [id number] [address] [place] [address] 78633KOC (RBC) [Entitic mass]30.4 fbRqatcz30.0-34.0[facility] on above:Order Comment: Specimen Type: BLOOD SPECIMEN Ordering Facility: [facility] Address: [address] [place], [place] [address]Performed By: #### 06685-1 #### [facility] CLIA [id number] [address] [place], [place] [address]CJQV (RBC) [Mass/Vol]32.5 g/dIKeaawo12.5-36.0[facility] on above:Order Comment: Specimen Type: BLOOD SPECIMEN Ordering Facility: [facility] Address: [address] [place], [place] [address]Performed By: #### 70384-9 #### [facility] CLIA [id number] [address] [place], [place] [address]PXG (RBC) [Entitic vol]93.7 nBKxpvhq24.0-100.0[facility] HealthComment on above:Order Comment: Specimen Type: BLOOD SPECIMEN Ordering Facility: [facility] Address: [address] [place], [place] [address]Performed By: #### 75260-6 #### [facility] CLIA [id number] [address] [place] [address] 06519Eatboddeh (Bld) [#/Vol]0.78 10*3/uLNormal<0.87[facility] on above:Order Comment: Specimen Type: BLOOD SPECIMEN Ordering Facility: [facility] Address: [address] [place], [place] [address]Performed By: #### 95853-9 #### [facility] CLIA [id number] [address] [place] [address] 07983Jgiakviju/100 WBC (Bld)15.7 %NormalParkview Health Comment on above:Order Comment: Specimen Type: BLOOD SPECIMEN Ordering Facility: [facility] Address: [address] [place], [place] [address]Performed By: #### 57722-1 #### [facility] CLIA [id number] [address] [place] [address] 16566Vsyaewhltwg (Bld) [#/Vol]2.58 10*3/uLNormal1.45-7.50[facility] on above:Order Comment: Specimen Type: BLOOD SPECIMEN Ordering Facility: [facility] Address: [address] [place], [place] [address]Performed By: #### 99650-5 #### [facility] CLIA [id number] [address] [place] [address] 04161Mextzzwdfhk/100 WBC (Bld)52.1 %NormalAvita Health System [facility] on above:Order Comment: Specimen Type: BLOOD SPECIMEN Ordering Facility: [facility] Address: [address] [place], [place] [address]Performed By: #### 05372-1 #### [facility] CLIA [id number] [address] [place] [address] 72[address]Imhtjkncm RBC (Bld) [#/Vol]10*3/uLNormal<0.01[facility] on above:Order Comment: Specimen Type: BLOOD SPECIMEN Ordering Facility: [facility] Address: [address] [place], [place] [address]Performed By: #### 50058-3 #### [facility] CLIA [id number] [address] [place] [address] 89447Trsunzhrl RBC/100 WBC (Bld) [Ratio]0.0 /100 WBCNormalCBrown Memorial Hospital on above:Order Comment: Specimen Type: BLOOD SPECIMEN Ordering Facility: [facility] Address: [address] [place], [place] [address]Performed By: #### 61498-6 #### [facility] CLIA [id number] [address] [place] [address] 49309Nxwcdgzq mean volume (Bld) [Entitic vol]8.4 fLLow9.0-12.7 [facility] on above:Order Comment: Specimen Type: BLOOD SPECIMEN Ordering Facility: [facility] Address: [address] [place], [place] [address]Performed By: #### 29411-7 #### [facility] CLIA [id number] [address] [place], [place] [address]Qnrczehda (Bld) [#/Vol]194 10*3/oJQpuwhc581-905HpzldzgyzAvita Health System [facility] Hospital on above:Order Comment: Specimen Type: BLOOD SPECIMEN Ordering Facility: [facility] Address: [address] [place], [place] [address]Performed By: #### 73351-7 #### [facility] CLIA [id number] [address] [place], [place] [address]JHW (Bld) [#/Vol]4.11 10*6/uLLow4.20-6.00[facility] on above:Order Comment: Specimen Type: BLOOD SPECIMEN Ordering Facility: [facility] Address: [address] [place], [place] [address]Performed By: #### 64232-9 #### [facility] CLIA [id number] [address] [place], [place] [address]EIE (Bld) [#/Vol]4.96 10*3/uLNormal3.70-11.00[facility] on above:Order Comment: Specimen Type: BLOOD SPECIMEN Ordering Facility: [facility] Address: [address] [place], [place] [address]Performed By: #### 02775-4 #### [facility] CLIA [id number] [address] [place], [place] [address]Zbvgfgshnjfxy metabolic 2000 panelon 61-63-1933Ujkoxuc [Mass/Vol]3.9 g/dLNormal3.9-4.9CBrown Memorial Hospital on above:Order Comment: Specimen Type: BLOOD SPECIMENOrdering Facility: [facility] Address:[address] [place], [place] [address]Performed By: #### 98764- 8 ####[facility] [id number] [place], [place] [address]BRU [Catalytic activity/Vol]57 U/VIxslft11-305CtqunevgbAvita Health System Galion Hospital on above:Order Comment: Specimen Type: BLOOD SPECIMENOrdering Facility: [facility] Address:[address] [place], [place] [address]Performed By: #### 38970-6 ####[facility] [id number] [place] [address]UKW [Catalytic activity/Vol]18 U/VAsyuau62-52XyqgzvsgxAvita Health System [facility] Hospital on above:Order Comment: Specimen Type: BLOOD SPECIMENOrdering Facility: [facility] Address:[address] [place], [place] [address]Performed By: #### 19488- 8 ####[facility] [id number] [facility] RENARD RAMÍREZCOPPER SPRINGS HOSPITALDERIANNEW [place], [place] [address]Iscfk gap [Moles/Vol]10 mmol/LNormal8-15[facility] on above:Order Comment: Specimen Type: BLOOD SPECIMENOrdering Facility: [facility] Address:[address] [place], [place] [address]Performed By: #### 46186-8 ####[facility] [id number] [facility] [place], [place] [address]OYE [Catalytic activity/Vol]17 U/SBtyygr43-35BjwtjvpvpAvita Health System [facility] Hospital on above:Order Comment: Specimen Type: BLOOD SPECIMENOrdering Facility: [facility] Address:[address] [place], [place] [address]Performed By: #### 00066-7 ####[facility]IA [id number] [facility]ITALJOHNCOPPER [facility]INGS [place] [address] Bilirubin [Mass/Vol]0.3 mg/dLNormal0.2-1.3CBrown Memorial Hospital on above:Order Comment: Specimen Type: BLOOD SPECIMENOrdering Facility: [facility] Address:[address] [place], [place] [address]Performed By: #### 37900-2 ####[facility] [id number] [place], [place] [address]Pphqbon [Mass/Vol]9.5 mg/dLNormal8.5-10.2CBrown Memorial Hospital on above:Order Comment: Specimen Type: BLOOD SPECIMENOrdering Facility: [facility] Address:[address] [place], [place] [address]Performed By: #### 89143-3 ####[facility] [id number] [place], [place] [address]Norrdrmw [Moles/Vol]107 mmol/NKjobmv41-626AvbrrxuzcAvita Health System [facility] Hospital on above: Order Comment: Specimen Type: BLOOD SPECIMENOrdering Facility: [facility] Address:[address] [place], [place] [address]Performed By: #### 96690- 8 ####[facility]IA [id number] [place], [place] [address]DI8 [Moles/Vol]23 mmol/TAygdeg11-30HghopksucAvita Health System [facility]ion Hospital on above:Order Comment: Specimen Type: BLOOD SPECIMENOrdering Facility: [facility] Address:[address] [place], [place] [address]Performed By: #### 66935-9 ####[facility]IA [id number] [place], [place] [address]Porcrvupwy [Mass/Vol]1.10 mg/dL Normal0.73-1.22[facility] on above:Order Comment: Specimen Type: BLOOD SPECIMENOrdering Facility: [facility] Address:[address] [place], [place] [address]Performed By: #### 71574-3 ####[facility] [id number] [place], [place] [address]Hbsuvpfael and Glomerular filtration rate.predicted panel (S/P/Bld)65 mL/min/1.73m???Normal>=60[facility] on above:Order Comment: Specimen Type: BLOOD SPECIMENOrdering Facility: [facility] Address:[address] [place], [place] [address]Result Comment: Estimated Glomerular Filtration Rate (eGFR) is calculated using the 2020 CKD-EPI creatinine equation. This equation utilizes serum creatinine, sex, and age as parameters. The creatinine assay has traceable calibration to isotope dilution- mass spectrometry. Refer to KDIGO guidelines for clinical interpretation. In patients with unstable renal function, e.g. those with acute kidney injury, the eGFR may not accurately reflect actual GFR.Performed By: #### 61324-6 ####[facility] [id number] [place], [place] [address]Ftzjxbj [Mass/Vol]82 mg/bIHmjrcm73-91WqamxwqlpAvita Health System [facility] Hospital on above:Order Comment: Specimen Type: BLOOD SPECIMENOrdering Facility: [facility] Address:[address] [id number] Comment: The [place] Diabetes Association (ADA) provides guidance for cutoff values for fasting glucose and random glucose. The ADA defines fasting as no caloric intake for at least 8 hours. Fasting plasma glucose results between 100 to 125 mg/dL indicate increased risk for diabetes (prediab etes). Fasting plasma glucose results greater than or [...] Standards of Medical Care in Diabetes 2016, [place] [employer]. Diabetes Care. 2016.39(Suppl 1).Performed By: #### 02578-3 ####[facility] [id number] [place], [place] [address]Ontxefnrr [Moles/Vol]4.8 mmol/LNormal3.7-5.1CBrown Memorial Hospital on above:Order Comment: Specimen Type: BLOOD SPECIMENOrdering Facility: [facility] Address:[address] [address]Performed By: #### 71831-7 ####[facility]IA [id number] [place], [place] [address]Icxsfnl [Mass/Vol]6.4 g/dLNormal6.3-8.0[facility] on above:Order Comment: Specimen Type: BLOOD SPECIMENOrdering Facility: [facility] Address:[address] [place], [place] [address]Performed By: #### 52798- 8 ####[facility]IA [id number] [place], [place] [address]Ucxnrv [Moles/Vol]140 mmol/CZcfqnj292-128ReivcyksmAvita Health System [facility]ion Hospital on above:Order Comment: Specimen Type: BLOOD SPECIMENOrdering Facility: [facility] Address:[address] [place], [place] [address]Performed By: #### 98179-2 ####[facility]IA [id number] [place], [place] [address]Cwmw nitrogen [Mass/Vol]27 mg/dLHigh9-24[facility] on above:Order Comment: Specimen Type: BLOOD SPECIMENOrdering Facility: [facility] Address:[address] [place], [place] [address]Performed By: #### 09397-8 ####[facility]CLIA [id number] [place] [address] Eosinophils/100 WBC Auto (Bld)on 12-78-5468Yelooskrtpx/100 WBC (Bld)Automated eosinophil %[facility] HospitalErythrocyte distribution width Auto (RBC) [Ratio]on 97-49-9247Wkxaewrxdzv distribution width (RBC) [Ratio] Erythrocyte distribution width [Ratio] by Automated count11.5-15.0[facility] HospitalHematocrit Auto (Bld) [Volume fraction]on 01-18-2025 Hematocrit (Bld) [Volume fraction]Hematocrit [Volume Fraction] of Blood by Automated zimdhNse09.0-51.0[facility] HospitalHemoglobin [Mass/volume] in Bloodon 55-67-5573Fmfrnlrroq (Bld) [Mass/Vol]Hemoglobin [Mass/volume] in NqrnwOih67.0-17.0[facility] HospitalLaboratory - Chemistry and Chemistry - challengeon 43-28-4825Losvoxx [Mass/Vol]3.9 g/dL 3.9-4.9[facility] HospitalALP [Catalytic activity/Vol]57 U/L38-113 [facility] HospitalALT [Catalytic activity/Vol]18 U/L10-54 [facility] HospitalAST [Catalytic activity/Vol]17 U/L14-40 [facility] HospitalBilirubin [Mass/Vol]0.3 mg/dL0.2-1.3FMcKitrick HospitalCalcium [Mass/Vol]9.5 mg/dL8.5-10.2FMcKitrick HospitalChloride [Moles/Vol]107 mmol/C02-530CdxjovxxkMartin Memorial HospitalCO2 [Moles/Vol]23 mmol/Q42-07QlcfvxvoiMartin Memorial HospitalCreatinine [Mass/Vol]1.10 mg/dL0.73-1.22[facility] HospitalGlucose [Mass/Vol] 82 mg/dU31-45PpwgzxncwMartin Memorial HospitalComment on above:The [place] Diabetes Association (ADA) provides guidance for cutoff values for fasting glucose andrandom glucose. The ADA defines fasting as no [...] hyperglycemia or hyperglycemic crisis, random plasma glucose resultsgreater than or equal to 200 mg/dL meet the criteria for diagnosis of diabetes.Reference: Standardsof Medical Care in Diabetes 2016, [place] Diabetes Association. Diabetes Care. 2016.39(Suppl 1). Potassium [Moles/Vol]4.8 mmol/L3.7-5.1FUniversity Hospitals Elyria Medical Centerodium [Moles/Vol]140 mmol/R295-234DmlxhxttfMartin Memorial HospitalUrea nitrogen [Mass/Vol]27 mg/dLHigh9-24[facility] HospitalLaboratory - Hematology and Cell countson 28-94-4877Ktjbortqrnm (Bld) [#/Vol]0.24 10*3/uL <0.46[facility] HospitalImmature granulocytes/100 WBC (Bld)0.2 % [facility] HospitalLeukocytes [#/volume] corrected for nucleated erythrocytes in Blood by Automated counon 56-39-3458HCG corrected for nucl RBC Auto (Bld) [#/Vol]Leukocytes [#/volume] corrected for nucleated erythrocytes in Blood by Automated coun3.70-11.00[facility] HospitalLymphocytes Auto (Bld) [#/Vol]on 59-90-5713Nogzvsruukl (Bld) [#/Vol]Lymphocytes [#/volume] in Blood by Automated count1.00-4.00[facility] Lymphocytes/100 WBC Auto (Bld)on 84-22-2616Ngnjakyfhln/100 WBC (Bld) Lymphocytes/100 leukocytes in Blood by Automated countParkview Health Bryan HospitalH Auto (RBC) [Entitic mass]on 99-49-0574IUG (RBC) [Entitic mass]MCH [Entitic mass] by Automated count26.0-34.0[facility] HospitalMCHC Auto (RBC) [Mass/Vol]on 09-33-2776IQNM (RBC) [Mass/Vol]MCHC [Mass/volume] by Automated count30.5-36.0[facility] HospitalMCV Auto (RBC) [Entitic vol]on 97-63-6009EQV (RBC) [Entitic vol]MCV [Entitic volume] by Automated count 80.0-100.0[facility] HospitalMonocytes Auto (Bld) [#/Vol]on 90-85-6897Tyylozehg (Bld) [#/Vol]Automated blood monocyte count<0.87[facility] HospitalMonocytes/100 WBC Auto (Bld)on 79-17-0949Rebgcbsin/100 WBC (Bld)Automated monocyte %[facility] HospitalNeutrophils Auto (Bld) [#/Vol]on 35-84-5750Pzbkybueogb (Bld) [#/Vol]Neutrophils [#/volume] in Blood by Automated count1.45-7.50[facility] Neutrophils/100 WBC Auto (Bld)on 09-84-6593Rzndpglrssm/100 WBC (Bld)Automated neutrophil %[facility] HospitalNo Panel Informationon 01-18-2025 Estimated GFR (CKD-EPI)65 mL/min/1.73m???>=60[facility] Comment on above:Estimated Glomerular Filtration Rate (eGFR) is calculated using the 2020 CKD-EPI creatinine equation. This equation utilizes serum creatinine, sex, and age as parameters. The creatinine assay has traceable calibration to isotope dilution-mass spectrometry. Refer to KDIGO guidelines for clinical inte rpretation. In patients with unstable renal function, e.g. those with acute kidney injury, the eGFRmay not accurately reflect actual GFR.Immature Granulocyte # (Auto)<0.03 k/uL<0.10[facility] HospitalNucleated RBC Auto (Bld) [#/Vol]on 50-72-6186Ngpxcufiq RBC (Bld) [#/Vol]Nucleated erythrocytes [#/volume] in Blood by Automated count<0.01[facility] HospitalNucleated erythrocytes [Presence] in Blood by Automated counton 74-32-5733Yjjcpspxh RBC Auto Ql (Bld)Nucleated erythrocytes [Presence] in Blood by Automated countMartin Memorial HospitalPlatelet mean volume Auto (Bld) [Entitic vol]on 67-92-9191Oqtzpodf mean volume (Bld) [Entitic vol]Platelet mean volume [Entitic volume] in Blood by Automated countLow9.0-12.7FMcKitrick HospitalPlatelets Auto (Bld) [#/Vol]on 72-73-2543Zlwlnctkg (Bld) [#/Vol]Platelets [#/volume] in Blood by Automated zrojx198-179GgzstxilpMartin Memorial HospitalProtein [Mass/volume] in Serum or Plasmaon 88-64-5959Zktcziw [Mass/Vol]Protein [Mass/volume] in Serum or Plasma6.3-8.0[facility] HospitalRBC Auto (Bld) [#/Vol]on 13-77-9827XOA (Bld) [#/Vol]Erythrocytes [#/volume] in Blood by Automated countLow4.20-6.00[facility]tering Health Springfielderum or plasma anion gap determinationon 01-61-8853Lijgm gap [Moles/Vol] Serum or plasma anion gap determination06-04[facility] Influenza virus B Ag [Presence] in Upper respiratory specimen by Rapid immunoassayon 36-09-9395UHIZW Ag IA.rapid Ql (Nph)Influenza virus B Ag [Presence] in Upper respiratory specimen by Rapid immunoassayMartin Memorial HospitalNo Panel Informationon 57-34-4794Ekxwisbzd Type A (Rapid)Negative [facility] HospitalPO SARS CoV-2 AntigenNegativeMartin Memorial HospitalLon 11-23-2024L Specimen: [id number] Received: 11/24/24 Status: RICHARD Camp Num: [id number] Spec Type: Cytology Subm Dr: Kylie Dietrich MD Tissues: A WASHING (BLADDER WASHING) Procedures: Gross/Micro L4, Cyto Prepstain, PAPSTN Age/ Patient Sex Location Account Attending Physician Kennedy Kong/M LABELL [id number] Kylie Dietrich MD SPEC NUM: [id number] RECD: 11/24/24 STATUS: RICHARD CAMP NUM: [id number] MAHENDRA: 11/23/[address] [facility] [address]: Kylie Dietrich MD ENTERED: 11/24/24 [facility] DR: Juana Irene SPEC TYPE: Cytology DEPT: LAURA CASTANEDA ENTERED BY: [id number] RECV BY: [id number] ORDERED: Gross/Micro L4, Cyto Prepstain, PAPSTN ORDERED: Gross/Micro L4, Cyto Prepstain, PAPSTN Pathological Diagnosis Urinary bladder washings: Groups of atypical urothelial cells noted. Acute inflammation. Gross Description Received fresh is 20 ml red-brown cloudy unfixed fluid for cytology said to have been obtained as Bladder Washings. ThinPrep preparations are prepared for microscopic examination. (CC/nh) CPT Codes 92464 Specimen: [id number] Received: 11/24/24 Status: RICHARD Camp Num: [id number] Spec Type: Cytology Subm Dr: Kylie Dietrich MD Tissues: A WASHING (BLADDER WASHING) Procedures: Gross/Micro L4, Cyto Prepstain, PAPSTN Patient: Kennedy Kong [id number] (Continued) Signed (signature on file) Thien Woods MD 11/24/[address] [place] [address] Physician GroupPNon [id number] (HEMASA) KENNEDY KONG ([id number]) 1935 M Date Time Provider Department 10/30/24 SHERRON SINGH During your visit today, we recorded the following information about you: Sherron Singh, JUSTIN 10/30/2024 1:45 PM Signed Pt scheduled for [...] designated per enteric contrast guidelines - Catheter ([facility]) misc 1 Device once [...] 10/29/2024 Encounter Status:Closed by SHERRON SINGH on 10/30/24[facility] 50-79-7173VPJIQujilm Visit (JENIFER) KENNEDY KONG ([id number]) 1935 M Date Time Provider Department 10/28/24 [...] Comments Pt gets sores in mouth MEDICATIONS: CARORLL CHEWABLE ASPIRIN 81 mg chewable tablet CHEW [...] as designated per enteric contrast guidelines Catheter ([facility]) [facility] [place] once daily. clopidogrel (PLAVIX) 75 [...] by: Suzanne Grajeda MD cc: Lesa Estrella ([facility]) [address] [place] [address] No referring provider defined for this encounter. Allergies As of Date: 10/28/2024 Noted Allergy Re (more content not included)... 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 and has been [...] and stool backup al (more content not included)...NormalParkview HealthReminderson 93-38-5710Gehqgkcku Reminders From: Lucero Sutherland To: EU - Recalls Dietrich; Sent: 05/05/2024 11:08:13 EDT Show up: 10/21/2024 11:08:00 EST Subject: cysto/fish/cytol Due Date/Time: 11/09/2024 11:08:00 EST Reminder/Recall Patient is due for 6 month cysto/fish/cytol (bt ck) in December 2024 see other noteNormSelect Medical TriHealth Rehabilitation HospitalRemindersReminders From: Lucero Sutherland To: EU - Recalls Dietrich; Sent: 07/02/2024 10:48:31 EDT Show up: 09/20/2024 10:48:00 EST Subject: cysto/fish/cytol Due Date/Time: 10/12/2024 10:48:00 EST Reminder/Recall Patient needs sched for 4-6 month cysto/fish/cytol (bt ck) in Oct- december 2024 Spoke to pt, [facility].LGM[facility] GLUCOSE, BLOOD (POC)on 33-21-8592Nccuaqe [Mass/Vol]86 mg/dL74 - 99 mg/dL [facility] HospitalComment on above:Location:[facility], [address] [place] [address] , [place], [place], [address] The Accu-Chek Inform II glucose meter has [...] blood gas instrument) in the above situations. [facility] PET/CT SKULL-THIGH SUBQon 77-89-1949ZJ PET/CT SKULL-THIGH SUBQ* * *Final Report* * * DATE OF EXAM: Oct 20 2024 1:28PM NRN 0063 - SD PET/CT SKULL-THIGH SUBQ / PROCEDURE REASON: Malignant [...] designed to produce diagnostic CT scan quality. Physiologic/non-pathologic uptake in some body regions could confound or obscure some pathology. * CT Dose-Length Product (DLP): 249 mGy*cm * CT Dose Reduction Employed: Yes * Blood glucose: 86 mg/dL * Injection site: Right Forearm-Antecubital * Injected activity: 10.8 mCi * Uptake Time: 52 minutes * Radiopharmaceutical: W20-Jhxxripqzkgpaewxuo (FDG) COMPARISON: No previous FDG PET/CT available [...] any questions regarding this interpretation, please call [phone]. If you are unable to reach us at the number above, please feel free to contact [facility] eRadiology at [phone]. [id number] HealthCNPNon [phone] Telephone (HEMASA) AIDENKENNEDY CABAN ([id number]) 1935 M Date Time Provider Department 10/05/24 [...] PET. Clerical: Please call before scheduling. Thanks! JUSTIN Acuna Jodi 10/05/2024 10:59 AM Signed Patient scheduled for [...] Fully Assessed Reason for Visit: Care Coordination [4481] Cmt: CT Results Prescriptions as of 10/05/2024 [...] designated per enteric contrast guidelines - Catheter ([facility]ATH) misc 1 Device once [...] bladde*01/05/2024 Encounter Status:Closed by LINCOLN ALCAZAR on 10/05/24NoPremier Health Upper Valley Medical CenterBasophils Auto (Bld) [#/Vol]on 31-73-9942Bnepnzkme (Bld) [#/Vol] Automated basophil count<0.11Martin [facility] HospitalBasophils/100 WBC Auto (Bld)on 18-35-0237Kgzrtttfe/100 WBC (Bld)Automated basophil %Martin Memorial HospitalBlood manual differential comment interpretation narrativeon 92-91-0223Rerbjv differential comment Joshua (Bld) [Interp]Blood manual differential comment interpretation narrativeMartin Memorial Hospital CBC W Auto Differential panel (Bld)on 16-38-3511Dbjafivyo (Bld) [#/Vol]0.03 10*3/uLNormal<0.11CBrown [facility] Hospital on above:Order Comment: Specimen Type: BLOOD SPECIMEN [facility] Address: [address] [place], [place] [address]Performed By: #### 07643-2 #### [facility] CLIA [id number] [address] [place], [place] [address]Mtipiishr/100 WBC (Bld)0.6 %NormalParkview Health Comment on above:Order Comment: Specimen Type: BLOOD SPECIMEN [facility]ing Facility: [facility] Address: [address] [place], [place] [address]Performed By: #### 69396-4 #### [facility] CLIA [id number] [address] [place], [place] [address]Rqqdeuvosziz cell count method Nom (Bld)AutoNormalClevelPremier Health [facility] on above:Order Comment: Specimen Type: BLOOD SPECIMEN Ordering Facility: [facility] Address: [address] [place], [place] [address]Performed By: #### 60343-4 #### [facility] CLIA [id number] [address] [place], [place] [address]Yftoggniuyu (Bld) [#/Vol]0.33 10*3/uLNormal<0.46Parkview HealthComcorewell [facility] on above:Order Comment: Specimen Type: BLOOD SPECIMEN Ordering Facility: [facility] Address: [address] [place], [place] [address]Performed By: #### 20840-3 #### [facility] CLIA [id number] [address] [place], [place] [address]Jehyqzotcij/100 WBC (Bld)7.1 %NormalParkview Health Comment on above:Order Comment: Specimen Type: BLOOD SPECIMEN Ordering Facility: [facility] Address: [address] [place], [place] [address]Performed By: #### 69564-8 #### [facility] CLIA [id number] [address] [place], [place] [address]Xbxvkdtanjm distribution width (RBC) [Ratio]13.0 %Normal 11.5-15.0[facility] on above:Order Comment: Specimen Type: BLOOD SPECIMEN [facility]ing Facility: [facility] Address: [address] [place], [place] [address]Performed By: #### 18923-0 #### [facility] CLIA [id number] [address] [place] [address]Gaeaxymcmz (Bld) [Volume fraction]33.8 %Low39.0-51.0[facility] on above:Order Comment: Specimen Type: BLOOD SPECIMEN Ordering Facility: [facility] Address: [address] [place], [place] [address]Performed By: #### 28660-6 #### [facility] CLIA [id number] [address] [place] [address] 11240Lxjnybvvla (Bld) [Mass/Vol]11.0 g/dLLow13.0-17.0[facility] on above:Order Comment: Specimen Type: BLOOD SPECIMEN Ordering Facility: [facility] Address: [address] [place], [place] [address]Performed By: #### 22058-6 #### [facility] CLIA [id number] [address] [place] [address] 28[address]Kwppuxbe granulocytes (Bld) [#/Vol]10*3/uLNormal<0.10[facility] on above:Order Comment: Specimen Type: BLOOD SPECIMEN Ordering Facility: [facility] Address: [address] [place], [place] [address]Performed By: #### 05346-4 #### [facility] CLIA [id number] [address] [place] [address]Rqtbljdq granulocytes/100 WBC (Bld)0.4 %NormalAvita Health System [facility] Hospital on above:Order Comment: Specimen Type: BLOOD SPECIMEN Ordering Facility: [facility] Address: [address] [place], [place] [address]Performed By: #### 71673-4 #### [facility] CLIA [id number] [address] [place] [address] 72411Uympazxtfup (Bld) [#/Vol]1.04 10*3/uLNormal1.00-4.00[facility] on above:Order Comment: Specimen Type: BLOOD SPECIMEN Ordering Facility: [facility] Address: [address] [place], [place] [address]Performed By: #### 61825-7 #### [facility] CLIA [id number] [address] [place] [address] 19148Mgflncprmpb/100 WBC (Bld)22.3 %NormalAvita Health System [facility] Hospital on above:Order Comment: Specimen Type: BLOOD SPECIMEN Ordering Facility: [facility] Address: [address] [place], [place] [address]Performed By: #### 19310-7 #### [facility] CLIA [id number] [address] [place] [address]ICU (RBC) [Entitic mass]30.4 rcCumkfs80.0-34.0[facility] on above:Order Comment: Specimen Type: BLOOD SPECIMEN Ordering Facility: [facility] Address: [address] [place], [place] [address]Performed By: #### 83794-6 #### [facility] CLIA [id number] [address] [place] [address] 97649AJLK (RBC) [Mass/Vol]32.5 g/dKUgyitg49.5-36.0[facility] on above:Order Comment: Specimen Type: BLOOD SPECIMEN Ordering Facility: [facility] Address: [address] [place], [place] [address]Performed By: #### 60662-9 #### [facility] CLIA [id number] [address] [place] [address] 11064LCI (RBC) [Entitic vol]93.4 wUVzfece22.0-100.0[facility] on above:Order Comment: Specimen Type: BLOOD SPECIMEN Ordering Facility: [facility] Address: [address] [place], [place] [address]Performed By: #### 31979-1 #### [facility] CLIA [id number] [address] [place], [place] [address]Penbvjhcp (Bld) [#/Vol]0.76 10*3/uLNormal<0.87[facility] on above:Order Comment: Specimen Type: BLOOD SPECIMEN Ordering Facility: [facility] Address: [address] [place], [place] [address]Performed By: #### 40234-9 #### [facility] CLIA [id number] [address] [place] [address] 623[address]Pwvfobysx/100 WBC (Bld)16.3 %NormalParkview Health Comment on above:Order Comment: Specimen Type: BLOOD SPECIMEN Ordering Facility: [facility] Address: [address] [place], [place] [address]Performed By: #### 04045-9 #### [facility] CLIA [id number] [address] [place] [address] 17694Hpzbohzipfd (Bld) [#/Vol]2.49 10*3/uLNormal1.45-7.50[facility] on above:Order Comment: Specimen Type: BLOOD SPECIMEN Ordering Facility: [facility] Address: [address] [place], [place] [address]Performed By: #### 60953-0 #### [facility] CLIA [id number] [address] [place], [place] [address]Lqjvyirawcw/100 WBC (Bld)53.3 %NormalAvita Health System [facility] Hospital on above:Order Comment: Specimen Type: BLOOD SPECIMEN Ordering Facility: [facility] Address: [address] [place], [place] [address]Performed By: #### 68916-0 #### [facility] CLIA [id number] [address] [place], [place] [address]Yvfivnvhy RBC (Bld) [#/Vol]10*3/uLNormal<0.01[facility] on above:Order Comment: Specimen Type: BLOOD SPECIMEN Ordering Facility: [facility] Address: [address] [place], [place] [address]Performed By: #### 89573-5 #### [facility] CLIA [id number] [address] [place], [place] [address]Edxzzamay RBC/100 WBC (Bld) [Ratio]0.0 /100 WBCNormalCBrown Memorial Hospital on above:Order Comment: Specimen Type: BLOOD SPECIMEN Ordering Facility: [facility] Address: [address] [place], [place] [address]Performed By: #### 30719-2 #### [facility] CLIA [id number] [address], [place] [address]Xhczxjxt mean volume (Bld) [Entitic vol]8.7 fLLow9.0-12.7 [facility] on above:Order Comment: Specimen Type: BLOOD SPECIMEN Ordering Facility: [facility] Address: [address] [place], [place] [address]Performed By: #### 22549-6 #### [facility] CLIA [id number] [address] [place], [place] [address]Qglmtxunl (Bld) [#/Vol]145 10*3/yUSnb939-469DhhrmgnjgAvita Health System [facility] on above:Order Comment: Specimen Type: BLOOD SPECIMEN Ordering Facility: [facility] Address: [address] [place], [place] [address]Performed By: #### 28885-4 #### [facility] CLIA [id number] [address] [place], [place] [address]DNB (Bld) [#/Vol]3.62 10*6/uLLow4.20-6.00[facility] on above:Order Comment: Specimen Type: BLOOD SPECIMEN Ordering [facility]: [facility] Address: [address] [place], [place] [address]Rjgdtkyna By: #### 15574-6 #### [facility] CLIA [id number] [address] [place], [place] [address]ZNQ (Bld) [#/Vol]4.67 10*3/uLNormal3.70-11.00Parkview HealthComment on above:Order Comment: Specimen Type: BLOOD SPECIMEN Ordering Facility: [facility] Address: [address] [place] [address]Lfidhunzx By: #### 39452-1 #### [facility] CLIA [id number] [address] [place], [place] [address]TW ABD/PEL W IVCONon 78-67-0267JJ ABD/PEL W IVCON* * *Final Report* * * DATE OF EXAM: Sep 30 2024 10:50AM [facility] [place] 0530 - CT ABD/PEL W IVCON [...] was performed concurrently and is dictated separately. Window Trimmer Apprentice (topogram) images: Unremarkable. IMPRESSION: No metastatic disease [...] any questions regarding this interpretation, please call [phone]. If you are unable to reach us at the number above, please feel free to contact [facility] at [phone]. [id number] Ridge Medical Center CHEST W IVCONon 35-99-7042NJ CHEST W IVCON* * *Final Report* * * DATE OF EXAM: Sep 30 2024 10:50AM [facility] [place] 0539 - CT CHEST W IVCON [...] was performed concurrently and is dictated separately. Window Trimmer Apprentice (topogram) images: Unremarkable. IMPRESSION: New 1.1 cm [...] any questions regarding this interpretation, please call [phone]. If you are unable to reach us at the number above, please feel free to contact [facility] at [phone]. [id number] HealthComprehensive metabolic 2000 panelon 53-12-4369Yvzslsc [Mass/Vol]3.6 g/dLLow3.9-4.9CBrown [facility] Hospital on above:Order Comment: Specimen Type: BLOOD SPECIMENOrdering Facility: [facility] Address:[address] [place], [place] [address]Ycsskdqlq By: #### 61032-2 ####[facility] LABCLIA [id number] [place], [place] [address]GQX [Catalytic activity/Vol]47 U/YYnnkwz88-333VyrvbfzltAvita Health System [facility] on above:Order Comment: Specimen Type: BLOOD SPECIMENOrdering Facility: [facility] Address:[address] [place], [place] [address]Performed By: #### 08605-4 ####[facility] LABCLIA [id number] ARNULFO RAMÍREZCOPPER SPRINGS HOSPITALMAYRA [place] [address]MVQ [Catalytic activity/Vol]16 U/VAdvzlg29-89PeclurtvbAvita Health System [facility] on above:Order Comment: Specimen Type: BLOOD SPECIMENOrdering Facility: [facility] Address:[address] [place], [place] [address]Performed By: #### 41044-9 ####[facility] [id number] [place], [place] [address]Mdncw gap [Moles/Vol]7 mmol/LLow8-15[facility] on above:Order Comment: Specimen Type: BLOOD SPECIMENOrdering Facility: [facility] Address:[address] [place], [place] [address]Performed By: #### 76674- 8 ####[facility]CLIA [id number] [facility] [place], [place] [address]OER [Catalytic activity/Vol]14 U/FHqexhq08-74SoasxnqehAvita Health System [facility] on above:Order Comment: Specimen Type: BLOOD SPECIMENOrdering Facility: [facility] Address:[address] [place], [place] [address]Performed By: #### 39072-4 ####[facility]CLIA [id number] [place], [place] [address]Ssgzqxbjb [Mass/Vol]0.3 mg/dLNormal0.2-1.3CBrown Memorial Hospital on above:Order Comment: Specimen Type: BLOOD SPECIMENOrdering Facility: [facility] Address:[address] [place], [place] [address]Performed By: #### 31960- 8 ####[facility]CL[facility] [id number] [facility] [place], [place] [address]Rvcxjst [Mass/Vol]8.9 mg/dLNormal8.5-10.2CBrown Memorial Hospital on above:Order Comment: Specimen Type: BLOOD SPECIMENOrdering Facility: [facility] Address:[address] [place], [place] [address]Performed By: #### 39108-4 ####[facility] LABCLIA [id number] [place], [place] [address]Iclrjfdl [Moles/Vol]107 mmol/L Zdtfar44-368QiugxecpiAvita Health System [facility] Hospital on above:Order Comment: Specimen Type: BLOOD SPECIMENOrdering Facility: [facility] Address:[address] [place], [place] [address]Performed By: #### 10485-6 ####[facility]CLIA [id number] [place] [address] CO2 [Moles/Vol]26 mmol/JIcbxxn51-55OcfznkrdyAvita Health System [facility] on above: Order Comment: Specimen Type: BLOOD SPECIMENOrdering Facility: [facility] Address:[address] [place], [place] [address]Performed By: #### 93678- 8 ####[facility] LABCLIA [id number] [facility] [place], [place] [address]Fuoiynckgc [Mass/Vol]1.02 mg/dLNormal0.73-1.22[facility] on above:Order Comment: Specimen Type: BLOOD SPECIMENOrdering Facility: [facility] Address:[address] [place], [place] [address]Performed By: #### 62065-0 ####[facility] LABCLIA [id number] [place], [place] [address]Jpngkqrrxf and Glomerular filtration rate.predicted panel (S/P/Bld)71 mL/min/1.73m???Normal>=60 [facility] on above:Order Comment: Specimen Type: BLOOD SPECIMENOrdering Facility: [facility] Address:[address] [place] [address] [place] [address]Erpfcw Comment: Estimated Glomerular Filtration Rate (eGFR) is calculated using the 2020 CKD-EPI creatinine equation. This equation utilizes serum creatinine, sex, and age as parameters. The creatinine assay has traceable calibration to isotope dilution-mass spectrometry. Refer to KDIGO guidelines for clinical interpretation. In patients with unstable renal function, e.g. those with acute kidney injury, the eGFR may not accurately reflect actual GFR.Performed By: #### 87968-0 ####[facility] LABCLIA [id number] [place], [place] [address]Ldhlhlq [Mass/Vol]94 mg/xCZtmcsc49-56KbubjiqvwAvita Health System [facility] on above:Order Comment: Specimen Type: BLOOD SPECIMENOrdering Facility: [facility] Address:[address] [place], [place] [address]Result Comment: The [place] Diabetes Association (ADA) provides guidance for cutoff values for fast ing glucose and random glucose. The ADA defines [...] Standards of Medical Care in Diabetes 2016, [place] Diabetes Association. Diabetes Care. 2016.39(Suppl 1).Performed By: #### 74850-7 ####[facility] LABCLIA [id number] [place], [place] [address]Lssgpoeny [Moles/Vol]4.7 mmol/LNormal3.7-5.1CBrown Memorial Hospital on above:Order Comment: Specimen Type: BLOOD SPECIMENOrdering Facility: [facility] Address:[address] [place] [address]Performed By: #### 98864-2 ####[facility] LABCLIA [id number] [place], [place] [address]Wgugrbi [Mass/Vol]5.7 g/dLLow6.3-8.0[facility] on above:Order Comment: Specimen Type: BLOOD SPECIMENOrdering Facility: [facility] Address:[address] [place], [place] [address]Performed By: #### 73920- 8 ####[facility] LABCLIA [id number] [place], [place] [address]Aizlua [Moles/Vol]140 mmol/UPwtsxw637-119WsapiusjgAvita Health System [facility] on above:Order Comment: Specimen Type: BLOOD SPECIMENOrdering Facility: [facility] Address:[address] [place], [place] [address]Performed By: #### 57855-7 ####[facility] LABCLIA [id number] [place], [place] [address]Nnaq nitrogen [Mass/Vol]30 mg/dLHigh9-24[facility] on above:Order Comment: Specimen Type: BLOOD SPECIMENOrdering Facility: [facility] Address:[address] [place], [place] [address]Performed By: #### 57645-5 ####[facility] LABCLIA [id number] [place] [address] Eosinophils/100 WBC Auto (Bld)on 71-25-1178Dugcplzdopx/100 WBC (Bld)Automated eosinophil %Martin Memorial HospitalErythrocyte distribution width Auto (RBC) [Ratio]on 32-13-1777Kkgtzicnjlc distribution width (RBC) [Ratio] Erythrocyte distribution width [Ratio] by Automated count11.5-15.0Martin Memorial HospitalFerritin SerPl-mCncon 93-31-4311Vwpvhwat [Mass/Vol]88.9 ng/bKSijyro64.3-565.7CBrown [facility] Hospital on above:Order Comment: Specimen Type: BLOOD SPECIMEN [facility] Address: [address] [place], [place] [address]Performed By: #### 46238-1 #### [facility] CLIA [id number] [address], [place] [address]Gvdspj SerPl-mCncon 42-29-9406Uvgkih [Mass/Vol]ng/mLNormal>4.7 [facility] on above:Order Comment: Specimen Type: BLOOD SPECIMEN [facility]: [facility] Address: [address] [place], [place] [address]Result Comment: A result of > 20 ng/mL is not necessarily indicative of a pathologic or treatable condition: it reflects a limitation of the test methodology. Assay reference range: 4.8 to 24.2 ng/mL. Suitable for detection of folate deficiency. Reference: Folate III (Folate III) [package insert V 1.0 [place]]. [employer], [place], [place]: August 2015.Performed By: #### 03246-6 #### [facility] CLIA [id number] [address] [place] [address]Tltzclnani Auto (Bld) [Volume fraction]on 37-75-5002Vlioerppnn (Bld) [Volume fraction]Hematocrit [Volume Fraction] of Blood by Automated count Low39.0-51.0Martin Memorial HospitalHemoglobin [Mass/volume] in Bloodon 83-80-1648Ksmarslgqc (Bld) [Mass/Vol]Hemoglobin [Mass/volume] in BloodLow 13.0-17.0Martin Memorial HospitalIron and Iron binding capacity panelon 72-94-5542Kvhf [Mass/Vol]56 ug/jYAdxdij60-058DerbbawjzAvita Health System [facility] on above:Order Comment: Specimen Type: BLOOD SPECIMEN [facility]ing [facility]: [facility] Address: [address] [place] [address]Mroyjztkq By: #### 02075-7 #### [facility] CLIA [id number] [address] [place], [place] [address]Llve binding capacity [Mass/Vol]223 ug/iHXpe608-756OkodkadfcAvita Health System [facility] on above:Order Comment: Specimen Type: BLOOD SPECIMEN [facility]ing [facility]: [facility] Address: [address] [place], [place] [address]Performed By: #### 46341-2 #### [facility] CLIA [id number] [address] [place] [address]Quae/TIBC [Molar ratio]25.1 %Vwouyd45.0-57.0Park[facility] HealthComcorewell health [facility] on above:Order Comment: Specimen Type: BLOOD SPECIMEN Ordering Facility: [facility] Address: [address] [place], [place] [address]Performed By: #### 12157-6 #### [facility] CLIA [id number] [address] [place] [address]Iggs binding capacity [Mass/volume] in Serum or Plasmaon 84-64-3523Yixm binding capacity [Mass/Vol]Iron binding capacity [Mass/volume] in Serum or KscjitOag127-859PzfsiixoqMartin Memorial HospitalIron saturation [Mass Fraction] in Serum or Plasmaon 68-89-7857Zrkc saturation [Mass fraction]Iron saturation [Mass Fraction] in Serum or Mocuwm10.0-57.0[facility] HospitalLaboratory - Chemistry and Chemistry - challengeon 57-43-2704Mjwsicc [Mass/Vol]3.6 g/dLLow3.9-4.9Martin [facility] HospitalALP [Catalytic activity/Vol]47 U/K10-324NeamobxytMartin Memorial HospitalALT [Catalytic activity/Vol]16 U/I26-54JydihuucdMartin Memorial HospitalAST [Catalytic activity/Vol]14 U/J28-91JpzglapcwMartin Memorial HospitalBilirubin [Mass/Vol]0.3 mg/dL0.2-1.3FMcKitrick HospitalCalcium [Mass/Vol]8.9 mg/dL 8.5-10.2FMcKitrick HospitalChloride [Moles/Vol]107 mmol/L98-107 [facility] HospitalCO2 [Moles/Vol]26 mmol/Q19-36DtzsxchgtMartin Memorial HospitalCobalamin (Vitamin B12) [Mass/Vol]1072 pg/kA954-9979FbjnqczuoMartin Memorial HospitalCreatinine [Mass/Vol]1.02 mg/dL0.73-1.22Martin Memorial HospitalFerritin [Mass/Vol]88.9 ng/mL30.3-565.7FMcKitrick HospitalGlucose [Mass/Vol]94 mg/vR36-60JxpsxpfdkMartin Memorial Hospital Comment on above:The [place] Diabetes Association (ADA) provides guidance for cutoff values for fasting glucose andrandom glucose. The ADA defines fasting as no caloric intake for at least 8 hours. Fasting plasma glucose results between 100 to 125 mg/dL indicate increased risk for diabetes (prediabetes).Fasting pl asma glucose results greater than or equal to 126 mg/dL meet the criteria for diagnosis of diabetes. In the absence of unequivocal hyperglycemia, results should be confirmed by repeat testing. In a patient with classic symptoms of hyperglycemia or hyperglycemic crisis, random plasma glucose resultsgreater than or equal to 200 mg/dL meet the criteria for diagnosis of diabetes.Reference: Standardsof Medical Care in Diabetes 2016, [place] Diabetes Association. Diabetes Care. 2016.39(Suppl 1).Iron [Mass/Vol]56 ug/jY21-575YogoprzayMartin Memorial HospitalPotassium [Moles/Vol]4.7 mmol/L3.7-5.1FUniversity Hospitals Elyria Medical Centerodium [Moles/Vol]140 mmol/N423-812QneinxongMartin Memorial HospitalUrea nitrogen [Mass/Vol]30 mg/dLHigh9-24Martin [facility] HospitalLaboratory - Hematology and Cell countson 70-69-0536Gbrfrdciqvr (Bld) [#/Vol]0.33 10*3/uL <0.46Martin Memorial HospitalImmature granulocytes/100 WBC (Bld)0.4 % [facility] Memorial HospitalLeukocytes [#/volume] corrected for nucleated erythrocytes in Blood by Automated counon 21-80-0364AQW corrected for nucl RBC Auto (Bld) [#/Vol]Leukocytes [#/volume] corrected for nucleated erythrocytes in Blood by Automated coun3.70-11.00Martin [facility] HospitalLymphocytes Auto (Bld) [#/Vol]on 62-39-4767Mdxkdibnicm (Bld) [#/Vol]Lymphocytes [#/volume] in Blood by Automated count1.00-4.00[facility] Lymphocytes/100 WBC Auto (Bld)on 26-96-2799Donrjzekwln/100 WBC (Bld) Lymphocytes/100 leukocytes in Blood by Automated countParkview Health Bryan HospitalH Auto (RBC) [Entitic mass]on 83-70-5578XLY (RBC) [Entitic mass]MCH [Entitic mass] by Automated count26.0-34.0[facility] HospitalMCHC Auto (RBC) [Mass/Vol]on 20-68-4139CPIF (RBC) [Mass/Vol]MCHC [Mass/volume] by Automated count30.5-36.0[facility] Memorial HospitalMCV Auto (RBC) [Entitic vol]on 70-44-2824NHG (RBC) [Entitic vol]MCV [Entitic volume] by Automated count 80.0-100.0[facility] HospitalMonocytes Auto (Bld) [#/Vol]on 85-21-5566Xgiettgme (Bld) [#/Vol]Automated blood monocyte count<0.87[facility] HospitalMonocytes/100 WBC Auto (Bld)on 26-48-9668Ivwxlkbzh/100 WBC (Bld)Automated monocyte %[facility] HospitalNeutrophils Auto (Bld) [#/Vol]on 88-26-9888Ujbneudxpkl (Bld) [#/Vol]Neutrophils [#/volume] in Blood by Automated count1.45-7.50[facility] Neutrophils/100 WBC Auto (Bld)on 75-63-7890Uhksrvngiry/100 WBC (Bld)Automated neutrophil %[facility] HospitalNo Panel Informationon 09-30-2024 Estimated GFR (CKD-EPI)71 mL/min/1.73m???>=60[facility] Comment on above:Estimated Glomerular Filtration Rate (eGFR) is calculated using the 2020 CKD-EPI creatinine equation. This equation utilizes serum creatinine, sex, and age as parameters. The creatinine assay has traceable calibration to isotope dilution-mass spectrometry. Refer to KDIGO guidelines for clinical inte rpretation. In patients with unstable renal function, e.g. those with acute kidney injury, the eGFRmay not accurately reflect actual GFR.Folate>20.0 ng/mL >4.7FMcKitrick HospitalComment on above:A result of > 20 ng/mL is not necessarily indicative of a pathologic or treatable condition: it reflects a limitation of the test methodology.Assay reference range: 4.8 to 24.2 ng/mL. Suitable fordetection of folate deficiency.Reference:Folate III (Folate III) [package insert V 1.0 [place]]. [employer], [place], [place]: August 2015.Immature Granulocyte # (Auto)<0.03 k/uL<0.10[facility] HospitalNucleated RBC Auto (Bld) [#/Vol]on 50-81-4580Ncfkcfhac RBC (Bld) [#/Vol] Nucleated erythrocytes [#/volume] in Blood by Automated count<0.01[facility] HospitalNucleated erythrocytes [Presence] in Blood by Automated counton 65-58-3075Qaxyhvmao RBC Auto Ql (Bld)Nucleated erythrocytes [Presence] in Blood by Automated countMartin Memorial HospitalPlatelet mean volume Auto (Bld) [Entitic vol]on 49-05-2823Grexhunz mean volume (Bld) [Entitic vol] Platelet mean volume [Entitic volume] in Blood by Automated countLow9.0-12.7 [facility] HospitalPlatelets Auto (Bld) [#/Vol]on 09-30-2024 Platelets (Bld) [#/Vol]Platelets [#/volume] in Blood by Automated countLow 150-400[facility] HospitalProtein [Mass/volume] in Serum or Plasma on 10-97-3965Sbkuoov [Mass/Vol]Protein [Mass/volume] in Serum or PlasmaLow 6.3-8.0[facility] HospitalRBC Auto (Bld) [#/Vol]on 03-68-8402AKE (Bld) [#/Vol]Erythrocytes [#/volume] in Blood by Automated countLow4.20-6.00 [facility] Springfielderum or plasma anion gap determinationon 22-84-8016Ccswa gap [Moles/Vol]Serum or plasma anion gap determinationLow8-15 [facility] HospitalVit B12 SerPl-mCncon 73-67-5744Efpttdlff (Vitamin B12) [Mass/Vol]1072 pg/pSKmtctd622-0023Cqblmcfco [facility] [place] Comment on above:Order Comment: Specimen Type: BLOOD SPECIMEN [facility]ing [facility] Address: [facility] [place] [address]Qmomiolun By: #### 45775-6 #### [facility] CLIA [id number] [address] [place] [address] 28727Ekptapdxlj Visit Summaryon 95-18-3821Yiovdvjoxy Visit Summary Ambulatory Visit Summary KENNEDY KONG [...] TURBT - Transurethral resection of bladder tumor (12/05/2023),Endoscopic destruction of bladder tumor by laser (12/13/2020), [...] Following Appointments Follow Up with KARLO CHOI, NOY Carrera When: Within 3 months Comments: Due for cysto in Oct 2024 Where: [address] [place] [address]- Medications What How Much When Instructions Unchanged [...] Symptoms of this conditio (more content not included)...[facility] SystemUrology Office/Clinic Noteon 12-10-8057Xzbcmds Office/Clinic Note Urology Office/Clinic Note Chief Complaint urimne retention HPI Staff 89 year old male patient presents today with low urine output. Dx: recurrent bladder papillary carcinoma, BPH with obstruction/LUTS, hydrocele. Pt states that he is leaking urine all the time and nowis wearing depends daily. Not only leaking urine but states that he also leaks from his bowels alsoat times. *Tamsulosin 0.4mg qd, Myrbetriq 50 mg [...] complaints: denies History of Present Illness Staff [facility] reviewed and agree. Review of Systems PHQ [...] treatments. Pt verbalized understanding. Pt reports that r ecent cysto/UD did not make a difference in his symptoms. Pt is currently taking Flomax 0.4mfgdaily. Pt denies SEs from this med. Advised pt that we could increase to BID to see if this helps his bothersome symptoms but he needs to closely watch for dizziness/lightheadedness. Pt aware and knows to go back [...] E&M of Est. Patient Moderate 30-39 Min 19278 Urnls Dip Stick Auto w/o Microscopy POC 30928 2. Urge incontinence (N39.41: Urge incontinence) UA today trace-intact blood only PVR today 74ml Pt continues to report severe leakage. Wears depends for both urine and stool leakage. 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 Pt reports he is being referred to Dr. Heath at [facility] for possible bowel strictures per Dr. Grajeda. -Continue Myrbetriq ER 50mg PO daily -Increase fluids, avoid bladder irritants Ordered: E&M of Est. Patient Moderate 30-39 Min 42970 3. Recurrent bladder papillary carcinoma (C67.9: Malignant [...] to tumors. S/p TUR (more content not included)...[facility] SystemComment on above:Result Comment: Electronically Signed By: Niki Castanon\Date and Time Signed: 07/16/24 09:04 Arnoldo 95-40-2873BGJOLprxynkwa (NCCAP) KENNEDY KONG ([id number]) 1935 M Date Time Provider Department 9/16/24 EUGENE CHAPARRO During your visit today, we recorded the following information about you: Lali yBrd Dinora 07/06/2024 10:[address] Eugene [...] designated per enteric contrast guidelines - Catheter ([facility]ATH) misc 1 Device once [...] bladde*01/05/2024 Encounter Status:Closed by LALI BYRD on 07/07/24NormalCBlanchard Valley Health System Bluffton HospitalUroVysion Fish and Urine Cyto (P4 Labs)on 92-71-7285KLDEIS & UC Diagnosis InfoInvalid Interpretation CodeKrisher Sinai Hospital Of BaltimoreComment on above:Result Comment: A:Urine,Urine:Voided Interpretation - Adequate cellularity for evaluation. Interpretation [...] - Electronically signed by : on: 07/06/2024 11:05:52Performed By: #### [id number] #### [facility] [address], [place] [address]Swemevojo Auto (Bld) [#/Vol]on 84-10-4522Kcinggxhh (Bld) [#/Vol]0.04 10*3/uL<0.11[facility] HospitalBasophils/100 WBC Auto (Bld)on 18-43-6811Wgmmskmta/100 WBC (Bld)0.7 %[facility] Blood manual differential comment interpretation narrativeon 62-77-9203Bjlszt differential comment Joshua (Bld) [Interp]AutoMartin Memorial HospitalCB W Auto Differential panel (Bld)on 59-51-7794Uqxdyhglp (Bld) [#/Vol]0.04 10*3/uL Normal<0.11CBlanchard Valley Health System Bluffton HospitalComment on above:Order Comment: Specimen Type: BLOOD SPECIMEN Ordering Facility: [facility] Address: [address], [place] [address]Wfvinpfcz By: #### 88529-7 #### [facility] CLIA [id number] [address] [place] [address] 688[address]Fldlrtcfj/100 WBC (Bld)0.7 %NormalParkview Health Comment on above:Order Comment: Specimen Type: BLOOD SPECIMEN Ordering Facility: [facility] Address: [address] [place], [place] [address]Performed By: #### 58000-1 #### [facility] CLIA [id number] [address] [place], [place] [address]Jxqjbufyptgo cell count method Nom (Bld)AutoNormalClevelPremier Health Miami [facility] on above:Order Comment: Specimen Type: BLOOD SPECIMEN Ordering Facility: [facility] Address: [address] [place], [place] [address]Performed By: #### 30798-1 #### [facility] CLIA [id number] [address] [place] [address] 665[address]Yyatbhjzytd (Bld) [#/Vol]0.65 10*3/uLHigh<0.46[facility] on above:Order Comment: Specimen Type: BLOOD SPECIMEN Ordering Facility: [facility] Address: [address] [place], [place] [address]Performed By: #### 77665-8 #### [facility] CLIA [id number] [address] [place] [address] 37429Oeijejapeua/100 WBC (Bld)11.5 %NormalAvita Health System Galion Hospital on above:Order Comment: Specimen Type: BLOOD SPECIMEN Ordering Facility: [facility] Address: [address] [place], [place] [address]Performed By: #### 30705-9 #### [facility] CLIA [id number] [address] [place] [address]Cpjgfzejaoc distribution width (RBC) [Ratio]12.4 %Normal 11.5-15.0[facility] on above:Order Comment: Specimen Type: BLOOD SPECIMEN Ordering Facility: [facility] Address: [address] [place], [place] [address]Performed By: #### 42499-5 #### [facility] CLIA [id number] [address] [place], [place] [address]Mdpasrfqgf (Bld) [Volume fraction]34.3 %Low39.0-51.0[facility] on above:Order Comment: Specimen Type: BLOOD SPECIMEN Ordering Facility: [facility] Address: [address] [place], [place] [address]Performed By: #### 26677-7 #### [facility] CLIA [id number] [address] [place], [place] [address]Qrdbwzmlpz (Bld) [Mass/Vol]11.3 g/dLLow13.0-17.0[facility] on above:Order Comment: Specimen Type: BLOOD SPECIMEN Ordering Facility: [facility] Address: [address] [place], [place] [address]Performed By: #### 96154-4 #### [facility] CLIA [id number] [address] [place] [address] 288[address]Qnkmtavl granulocytes (Bld) [#/Vol]10*3/uLNormal<0.10[facility] on above:Order Comment: Specimen Type: BLOOD SPECIMEN Ordering Facility: [facility] Address: [address] [place], [place] [address]Performed By: #### 21915-2 #### [facility] CLIA [id number] [address] [place] [address] 054[address]Pkjlgrur granulocytes/100 WBC (Bld)0.4 %NormalAvita Health System Galion Hospital on above:Order Comment: Specimen Type: BLOOD SPECIMEN Ordering Facility: [facility] Address: [address] [place], [place] [address]Performed By: #### 97780-5 #### [facility] CLIA [id number] [address] [place] [address] 953[address]Stvdbtpsfks (Bld) [#/Vol]0.85 10*3/uLLow1.00-4.00[facility] on above:Order Comment: Specimen Type: BLOOD SPECIMEN Ordering Facility: [facility] Address: [address] [place], [place] [address]Performed By: #### 31714-5 #### [facility] CLIA [id number] [address] [place] [address] 69623Ekzomcjtowj/100 WBC (Bld)15.0 %NormalAvita Health System [facility] Hospital on above:Order Comment: Specimen Type: BLOOD SPECIMEN Ordering Facility: [facility] Address: [address] [place], [place] [address]Performed By: #### 53744-4 #### [facility] CLIA [id number] [address] [place] [address] 92908RNK (RBC) [Entitic mass]30.7 vxRgowqe11.0-34.0[facility] on above:Order Comment: Specimen Type: BLOOD SPECIMEN Ordering Facility: [facility] Address: [address] [place], [place] [address]Performed By: #### 48022-2 #### [facility] CLIA [id number] [address] [place] [address] 959[address]GPNW (RBC) [Mass/Vol]32.9 g/oBIwhmme18.5-36.0[facility] on above:Order Comment: Specimen Type: BLOOD SPECIMEN Ordering Facility: [facility] Address: [address] [place], [place] [address]Performed By: #### 17899-8 #### [facility] CLIA [id number] [address] [place] [address] 278[address]ROW (RBC) [Entitic vol]93.2 sRWjkpon65.0-100.0[facility] on above:Order Comment: Specimen Type: BLOOD SPECIMEN Ordering Facility: [facility] Address: [address] [place], [place] [address]Performed By: #### 46190-7 #### [facility] CLIA [id number] [address] [place] [address] 17857Wdysviyvg (Bld) [#/Vol]0.99 10*3/uLHigh<0.87[facility] on above:Order Comment: Specimen Type: BLOOD SPECIMEN Ordering Facility: [facility] Address: [address] [place], [place] [address]Performed By: #### 27907-2 #### [facility] CLIA [id number] [address] [place] [address] 085[address]Mtctrzont/100 WBC (Bld)17.5 %NormalParkview Health Comment on above:Order Comment: Specimen Type: BLOOD SPECIMEN Ordering Facility: [facility] Address: [address] [place], [place] [address]Performed By: #### 74902-5 #### [facility] CLIA [id number] [address] [place] [address] 49[address]Rnrkljaqlzt (Bld) [#/Vol]3.10 10*3/uLNormal1.45-7.50[facility] on above:Order Comment: Specimen Type: BLOOD SPECIMEN Ordering Facility: [facility] Address: [address] [place], [place] [address]Performed By: #### 68663-9 #### [facility] CLIA [id number] [address] [place] [address] 79087Bkhwlefrioa/100 WBC (Bld)54.9 %NormalAvita Health System [facility] Hospital on above:Order Comment: Specimen Type: BLOOD SPECIMEN Ordering Facility: [facility] Address: [address] [place], [place] [address]Performed By: #### 87638-5 #### [facility] CLIA [id number] [address] [place] [address] 98718Szuojiurt RBC (Bld) [#/Vol]10*3/uLNormal<0.01[facility] on above:Order Comment: Specimen Type: BLOOD SPECIMEN Ordering Facility: [facility] Address: [address] [place], [place] [address]Performed By: #### 55824-8 #### [facility] CLIA [id number] [address] [place], [place] [address]Qjqwsuxvj RBC/100 WBC (Bld) [Ratio]0.0 /100 WBCNormalCBrown Memorial Hospital on above:Order Comment: Specimen Type: BLOOD SPECIMEN Ordering Facility: [facility] Address: [address] [place], [place] [address]Performed By: #### 16931-3 #### [facility] CLIA [id number] [address], [place] [address]Xnmhyrgy mean volume (Bld) [Entitic vol]8.7 fLLow9.0-12.7 [facility] on above:Order Comment: Specimen Type: BLOOD SPECIMEN Ordering [facility]: [facility] Address: [address] [place], [place] [address]Performed By: #### 61155-1 #### [facility] CLIA [id number] [address] [place] [address] 96[address]Kdrntwkod (Bld) [#/Vol]155 10*3/nNOvxbis950-212YtteeyndmAvita Health System [facility] Hospital on above:Order Comment: Specimen Type: BLOOD SPECIMEN Ordering Facility: [facility] Address: [address] [place], [place] [address]Performed By: #### 99662-9 #### [facility] CLIA [id number] [address] [place] [address] 95472XVX (Bld) [#/Vol]3.68 10*6/uLLow4.20-6.00[facility] on above:Order Comment: Specimen Type: BLOOD SPECIMEN Ordering Facility: [facility] Address: [address] [place], [place] [address]Performed By: #### 21546-0 #### [facility] CLIA [id number] [address] [place] [address] 973[address]YPC (Bld) [#/Vol]5.65 10*3/uLNormal3.70-11.00[facility] on above:Order Comment: Specimen Type: BLOOD SPECIMEN Ordering [facility]: [facility] Address: [address] [place], [place] [address]Xlamxsibn By: #### 00403-0 #### [facility] CLIA [id number] [address] [place] [address] 50776BDFXxh 30-13-4599DGFGVdggwv Visit (RADTSA) BETTEKENNEDY ([id number]) 1935 M Date Time Provider Department 07/01/24 [...] Pt gets sores in mouth MEDICATIONS: Catheter ([facility]TER[facility] CATH) misc 1 Device once [...] Suzanne Grajeda MD cc: Lesa Estrella ([place]) [facility] [place] [address] No referring provider defined for this encounter. [...] designated per enteric contrast guidelines - Catheter ([facility]TER[facility] CATH) misc 1 Device once [...] - Fish Oil-DHA-EPA 1,20 (more content not included)...NormalMercy Health – The Jewish HospitalOVSPon 98-42-7246NQIYJCKrgtv (SP) Office (URSULAASA) KENNEDY KONG ([id number]) 1935 M Date Time Provider Department 07/01/24 [...] PM Signed NAME: Kennedy Kong CLINIC NO.: [id number] DATE OF SERVICE: July 01, 2024 (Deann) [...] December 05, 2023, was identified as having gegc-beymr-nwdlli invasive papillary bladder cancer and has been referred to Radiation oncology and subsequently to me for an opinion regarding chemotherapy. 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 He would likely tolerate low dose weekly cisplatin for radiosensitizing given appropriate supportive therapy. Will Coordinate with Dr. Grajeda. PLAN: Obtain cystoscopy records from [facility] with labs in 3 months [...] cyst. Essentially unremarkable sonographic (more content not included)...Normal [facility] Centerprehensive metabolic 2000 panelon 72-82-4895Snneosf [Mass/Vol]3.9 g/dLNormal3.9-4.9CBrown Memorial Hospital on above:Order Comment: Specimen Type: BLOOD SPECIMENOrdering Facility: [facility] Address:[address] [place], [place] [address]Performed By: #### 87930- 8 ####[facility] LAB[facility] [id number] [place], [place] [address]MGD [Catalytic activity/Vol]54 U/FZcohdd45-029YbtntzencAvita Health System [facility] Hospital on above:Order Comment: Specimen Type: BLOOD SPECIMENOrdering Facility: [facility] Address:[address] [place], [place] [address]Performed By: #### 33357-4 ####[facility] LABCLIA [id number] [place], [place] [address]TUE [Catalytic activity/Vol]10 U/GBibqzn41-42NqxdcjbopAvita Health System [facility] Hospital on above:Order Comment: Specimen Type: BLOOD SPECIMENOrdering Facility: [facility] Address:[address] [place], [place] [address]Performed By: #### 34949- 8 ####[facility] LABCLIA [id number] [place], [place] [address]Nftsf gap [Moles/Vol]9 mmol/LNormal8-15[facility] on above:Order Comment: Specimen Type: BLOOD SPECIMENOrdering Facility: [facility] Address:[address] [place], [place] [address]Performed By: #### 27037-7 ####[facility] LABCLIA [id number] [place], [place] [address]NZK [Catalytic activity/Vol]12 U/UHaj10-82DaebnkdnrAvita Health System [facility] on above:Order Comment: Specimen Type: BLOOD SPECIMENOrdering Facility: [facility] Address:[address] [place], [place] [address]Performed By: #### 55480-7 ####[facility] LABCLIA [id number] [place] [address] Bilirubin [Mass/Vol]0.3 mg/dLNormal0.2-1.3CBrown Memorial Hospital on above:Order Comment: Specimen Type: BLOOD SPECIMENOrdering Facility: [facility] Address:[address] [place], [place] [address]Performed By: #### 28435-4 ####[facility] LABCLIA [id number] [place], [place] [address]Storhaw [Mass/Vol]9.3 mg/dLNormal8.5-10.2CBrown Memorial Hospital on above:Order Comment: Specimen Type: BLOOD SPECIMENOrdering Facility: [facility] Address:[address] [place], [place] [address]Performed By: #### 15835-1 ####[facility] LABCLIA [id number] [facility] [place], [place] [address]Vmxmcxrf [Moles/Vol]106 mmol/DZuvmsl64-836LeousfadfAvita Health System [facility] on above: Order Comment: Specimen Type: BLOOD SPECIMENOrdering Facility: [facility] Address:[address] [place], [place] [address]Performed By: #### 00922- 8 ####[facility] LABCLIA [id number] [facility] RENARD RAMÍREZCOPPER SPRINGS HOSPITALDERIANNEW [place], [place] [address]VR7 [Moles/Vol]26 mmol/ZGawoyz23-73CwqqxfaitAvita Health System [facility] on above:Order Comment: Specimen Type: BLOOD SPECIMENOrdering Facility: [facility] Address:[address] [place], [place] [address]Zueqpiemp By: #### 67398-3 ####[facility] LABIA [id number] [place], [place] [address]Sepowneaps [Mass/Vol]1.18 mg/dL Normal0.73-1.22[facility] on above:Order Comment: Specimen Type: BLOOD SPECIMENOrdering Facility: [facility] Address:[address] [place], [place] [address]Performed By: #### 78872-3 ####[facility] LABIA [id number] [place], [place] [address]Yorbqhbevr and Glomerular filtration rate.predicted panel (S/P/Bld)59 mL/min/1.73m???Low>=60[facility] on above: Order Comment: Specimen Type: BLOOD SPECIMENOrdering Facility: [facility] Address:[address] [place], [place] [address]Result Comment: Estimated Glomerular Filtration Rate (eGFR) is calculated using the 2020 CKD-EPI cre atinine equation. This equation utilizes serum creatinine, sex, and age as parameters. The creatinine assay has traceable calibration to isotope dilution- mass spectrometry. Refer to KDIGO guidelines for clinical interpretation. In patients with unstable renal function, e.g. those with acute kidney injury, the eGFR may not accurately reflect actual GFR.Performed By: #### 52077-3 ####[facility] LABIA [id number] [place], [place] [address]Ywcgxaw [Mass/Vol]107 mg/aFGpbi72-12QljtfsxkxAvita Health System [facility] on above:Order Comment: Specimen Type: BLOOD SPECIMENOrdering Facility: [facility] Address:[address] [place], [place] [address]Result Comment: The [place] Diabetes [employer] (ADA) provides guidance for cutoff values for fasting glucose and random glucose. The ADA defines fasting as no caloric intake for at least 8 hours. Fasting plasma glucose results between 100 to 125 mg/dL indicate increased risk for diabetes (prediab etes). Fasting plasma glucose results greater than or [...] Standards of Medical Care in Diabetes 2016, [place] [employer]. Diabetes Care. 2016.39(Suppl 1).Performed By: #### 69291-6 ####[facility] LABCLIA [id number] [place], [place] [address]Tdyksgrlk [Moles/Vol]4.6 mmol/LNormal3.7-5.1CBrown Memorial Hospital on above:Order Comment: Specimen Type: BLOOD SPECIMENOrdering Facility: [facility] Address:[address] [place], [place] [address]Performed By: #### 32374-9 ####[facility] LABCLIA [id number] [place], [place] [address]Fftjcns [Mass/Vol]6.0 g/dLLow6.3-8.0[facility] on above:Order Comment: Specimen Type: BLOOD SPECIMENOrdering Facility: [facility] Address:[address] [place], [place] [address]Performed By: #### [id number] ####[facility] LABCLIA [id number] [place], [place] [address]Lqlcbl [Moles/Vol]141 mmol/HOddpmp015-736EabtdirefAvita [facility] on above:Order Comment: Specimen Type: BLOOD SPECIMENOrdering Facility: [facility] Address:[address] [place], [place] [address]Performed By: #### [id number] ####[facility] LABCLIA [id number] [place], [place] [address]Wepw nitrogen [Mass/Vol]31 mg/dLHigh9-24[facility] on above:Order Comment: Specimen Type: BLOOD SPECIMENOrdering Facility: [facility] Address:[address] [place] [address] [place], [place] [address]Clzdpelug By: #### [id number] ####[facility] LABCLIA [id number] [place] [address] Eosinophils/100 WBC Auto (Bld)on 04-62-0184Zaovydaqsdf/100 WBC (Bld)11.5 % [facility] HospitalErythrocyte distribution width Auto (RBC) [Ratio]on 48-84-8424Jecsqkbjvtt distribution width (RBC) [Ratio]12.4 %11.5-15.0 [facility] HospitalHematocrit Auto (Bld) [Volume fraction]on 96-77-7325Zkqdefmvrf (Bld) [Volume fraction]34.3 %Low39.0-51.0[facility] HospitalHemoglobin [Mass/volume] in Bloodon 63-72-8064Tvqewgloym (Bld) [Mass/Vol]11.3 g/dLLow13.0-17.0[facility] HospitalLaboratory - Chemistry and Chemistry - challengeon 66-48-4437Mromfxu [Mass/Vol]3.9 g/dL 3.9-4.9[facility] HospitalALP [Catalytic activity/Vol]54 U/L38-113 [facility] HospitalALT [Catalytic activity/Vol]10 U/L10-54 [facility] HospitalAST [Catalytic activity/Vol]12 U/DImh08-56 [facility] HospitalBilirubin [Mass/Vol]0.3 mg/dL0.2-1.3FMcKitrick HospitalCalcium [Mass/Vol]9.3 mg/dL8.5-10.2FMcKitrick HospitalChloride [Moles/Vol]106 mmol/X27-714AntwxyhhsMartin Memorial HospitalCO2 [Moles/Vol]26 mmol/Z07-51YkhzmdtfzMartin Memorial HospitalCreatinine [Mass/Vol]1.18 mg/dL0.73-1.22[facility] HospitalGlucose [Mass/Vol] 107 mg/zILttf63-78PswwbopjgMartin Memorial HospitalComment on above:The [place] Diabetes Association (ADA) provides guidance for cutoff values for fasting glucose andrandom glucose. The ADA defines fasting as no [...] hyperglycemia or hyperglycemic crisis, random plasma glucose resultsgreater than or equal to 200 mg/dL meet the criteria for diagnosis of diabetes.Reference: Standardsof Medical Care in Diabetes 2016, [place] Diabetes Association. Diabetes Care. 2016.39(Suppl 1). Potassium [Moles/Vol]4.6 mmol/L3.7-5.1FUniversity Hospitals Elyria Medical Centerodium [Moles/Vol]141 mmol/S031-307FsqcwhtkpMartin Memorial HospitalUrea nitrogen [Mass/Vol]31 mg/dLHigh9-24[facility] HospitalLaboratory - Hematology and Cell countson 53-06-3955Ufkcdyfuwde (Bld) [#/Vol]0.65 10*3/uLHigh <0.46[facility] HospitalImmature granulocytes/100 WBC (Bld)0.4 % [facility] HospitalLeukocytes [#/volume] corrected for nucleated erythrocytes in Blood by Automated counon 28-08-8995GSB corrected for nucl RBC Auto (Bld) [#/Vol]5.65 k/uL3.70-11.00[facility] Lymphocytes Auto (Bld) [#/Vol]on 52-87-5867Yijunkyjgxi (Bld) [#/Vol]0.85 10*3/uL Low1.00-4.00[facility] HospitalLymphocytes/100 WBC Auto (Bld)on 58-83-8734Tlbowomkljg/100 WBC (Bld)15.0 %[facility] HospitalMCH Auto (RBC) [Entitic mass]on 71-09-0455BMF (RBC) [Entitic mass]30.7 pg26.0-34.0 [facility] HospitalMCHC Auto (RBC) [Mass/Vol]on 48-94-2593MEZM (RBC) [Mass/Vol]32.9 g/dL30.5-36.0[facility] HospitalMCV Auto (RBC) [Entitic vol]on 60-85-8270SRK (RBC) [Entitic vol]93.2 fL80.0-100.0 [facility] HospitalMonocytes Auto (Bld) [#/Vol]on 07-01-2024 Monocytes (Bld) [#/Vol]0.99 10*3/uLHigh<0.87[facility] Monocytes/100 WBC Auto (Bld)on 19-49-5958Xmxwpliyg/100 WBC (Bld)17.5 %[facility] HospitalNeutrophils Auto (Bld) [#/Vol]on 16-53-5114Gkbhdotqssz (Bld) [#/Vol]3.10 10*3/uL1.45-7.50[facility] Neutrophils/100 WBC Auto (Bld)on 94-39-0270Zdlmpnrbvkz/100 WBC (Bld)54.9 % [facility] HospitalNo Panel Informationon 98-87-6168Uvfhgjepb GFR (CKD-EPI)59 mL/min/1.73m???Low>=60[facility] HospitalComment on above:Estimated Glomerular Filtration Rate (eGFR) is calculated using the 2020 CKD-EPI creatinine equation. This equation utilizes serum creatinine, sex, and age as parameters. The creatinine assay has traceable calibration to isotope dilution-mass spectrometry. Refer to KDIGO guidelines for clinical inte rpretation. In patients with unstable renal function, e.g. those with acute kidney injury, the eGFRmay not accurately reflect actual GFR.Immature Granulocyte # (Auto)<0.03 k/uL<0.10[facility] HospitalNucleated RBC Auto (Bld) [#/Vol]on 58-13-6384Hieprcsbp RBC (Bld) [#/Vol]10*3/uL<0.01 [facility] HospitalNucleated erythrocytes [Presence] in Blood by Automated counton 48-65-6950Rpssnhbce RBC Auto Ql (Bld)0.0 /100{WBC}[facility] HospitalPlatelet mean volume Auto (Bld) [Entitic vol]on 60-82-1822Cejyvail mean volume (Bld) [Entitic vol]8.7 fLLow9.0-12.7FMcKitrick HospitalPlatelets Auto (Bld) [#/Vol]on 46-46-9533Dgqjlggeu (Bld) [#/Vol]155 10*3/lO938-407FockqxteqMartin Memorial HospitalProtein [Mass/volume] in Serum or Plasmaon 96-07-7574Izwsvit [Mass/Vol]6.0 g/dLLow6.3-8.0[facility] HospitalRBC Auto (Bld) [#/Vol]on 09-55-2398WYH (Bld) [#/Vol]3.68 10*6/uLLow4.20-6.00[facility]tering Health Springfielderum or plasma anion gap determinationon 22-89-3935Sjnww gap [Moles/Vol]9 mmol/L8-15[facility] HospitalUroVysion Fish and Urine Cyto (P4 Labs)on 16-16-9382XRJK Method of ExtractionVoidedMount Carmel Health SystemComment on above:Performed By: #### [id number] #### [facility] [address], [place] [address]ECJO Number of Mhzw9Bpshrci Interpretation [facility] Greene MemorialComment on above:Performed By: #### [id number] #### [facility] [address], [place] [address]WJMK SpecimenUrineMount Carmel Health SystemComment on above:Performed By: #### [id number] #### [facility] [address], [place] [address]QDTX Type of ServiceTechnical OnlyMount Carmel Health SystemComment on above:Performed By: #### [id number] #### [facility] [address], [place] [address]Qnjkghroiq - Chemistry and Chemistry - challengeon 06-11-2024 Bilirubin Ql (U)NegativeNEGATIVEMartin Memorial HospitalGlucose (U) [Mass/Vol]NegativeNEGATIVEMartin Memorial HospitalKetones Ql (U)TRACE mg/dLAbnormalNEGProMedica Bay Park HospitalpH (U)5.5 [pH]5.0-9.0 [facility] Springfieldpecific gravity (U) [Rel density]>=1.030 Abnormal1.005-1.025[facility] HospitalUrobilinogen Qn (U)0.2 {Dae'U}/dL0.2-1.0[facility] HospitalLaboratory - Specimen informationon 15-60-0953Mwznkgzplz (U)CLEARCLEARFMcKitrick HospitalColor (U)DK. YELLOWYELLOWMartin Memorial HospitalLaboratory - Urinalysison 58-51-5459Mujcblymx esterase Test strip Ql (U)NegativeNEGATIVE [facility] HospitalMucus Ql (Urine sed)MODERATEAbnormalNONE SEEN [facility] HospitalNitrite Ql (U)NegativeNEGATIVEMartin Memorial HospitalProtein Ql (U)NegativeNEG/TRACEMartin Memorial HospitalNo Panel Informationon 19-86-0986Xngth BacteriaNONE SEEN #/HPFNONE SEEN [facility] HospitalUrine Culture ReflexedALREADY ORDEREDMartin Memorial HospitalUrine Occult BloodNegativeNEGProMedica Bay Park HospitalUrine RBC2-5 #/HPFAbnormal0-2FMcKitrick Hospital Urine Squamous Epithelial CellsFEW #/LPFAbnormalNONE/RAREMartin Memorial HospitalUrine WBC0-[address]PFAb[address] [facility] HospitalCholesterol in LDL Calc [Mass/Vol]on 67-80-6287Awbrqzqjdmb in LDL [Mass/Vol]28.0 mg/dLMartin Memorial HospitalComment on above:<100 mg/dl LNDGCSK454-735 mg/dl NEAR OR ABOVE WFAZALG876-981 mg/dl BORDERLINE EYEU690-588 mg/dl HIGH>190 mg/dl VERY HIGHCholesterol in VLDL Calc [Mass/Vol]on 05-25-2024 Cholesterol in VLDL [Mass/Vol]6.8 mg/dLMartin Memorial Hospital Laboratory - Chemistry and Chemistry - challengeon 98-90-2177Ttvwwcbfhhy [Mass/Vol]101 mg/dL<=200[facility] HospitalCholesterol in HDL [Mass/Vol]67 mg/fRHjwq82-57DzbkwaeryMartin Memorial HospitalComment on above:> or =60 mg/dl - LOW CARDIOVASCULAR RISK<40 mg/dl - HIGH CARDIOVASCULAR RISK Triglyceride [Mass/Vol]34 mg/dL<=150Kettering Health Springfielderum or plasma total cholesterol/high density lipoprotein (HDL) cholesterol mass alejandro 36-65-1769Anmzbdphlrb.total/Cholesterol in HDL [Mass ratio]1.5 {ratio}[facility] HospitalComment on above:3.3 - 4.4 LOW RISK4.4 - 7.1 AVERAGE RISK7.1 - 11.0 MODERATE RISK>11.0 HIGH RISKAmbulatory Visit Summaryon 04-20-2024 Ambulatory Visit SummaryAmbulatory Visit Summary KENNEDY KONG :1935 Visit Date:04/20/2024 Ambulatory Visit Instructions Your Diagnosis Recurrent bladder papillary carcinoma Urge incontinence BPH with obstruction/lower urinary tract symptoms Hydrocele Your Care Team Attending Physician - Kylie DIETRICH MD Primary Care Physician - LESA ESTRELLA DO [...] TURBT - Transurethral resection of bladder tumor (12/05/2023),Endoscopic destruction of bladder tumor by laser (12/13/2020), TURBT - Transurethral resection of bladder tumor (05/26/2020), Hydrocelectomy (2001), Cardiac catheterization, Cataract, colon resection, colonoscopy. Discharge Vitals Height 179 cm Height 70 in Weight 83.7 kg Weight 184.14 lb BMI 26.12 What to do next You Need to Schedule the Following Appointments Follow Up with KARLO CHOI, Kylie Restrepo, URL When: Comments: cysto due in June Where: [facility] [address] , [place] [address]- [phone] Medications What How Much When Instructions New mirabegron (Myrbetriq 50 mg oral tablet, extended release) 1 Tablets By Mouth Every day Refills: 11 Pickup at [facility]/pharmacy #[id number] Unchanged tamsulosin (Flomax 0.4 mg Cap) 1 [...] physician if questions or concerns [id number] [address], [place] [id number] [phone] Allergies No Known Allergies Problems Ongoing - [...] including vitamins, herbs, eye drops, creams, and copl-mfc-aqgartp medicines. (more content not included)...[facility] Health SystemPatient Letter FTon 34-57-7851Irojcfc Letter [facility] [facility] [place] April 20, 2024 KENNEDY KONG [id number] [place] [id number] : 1935 To : Financial assistance for cancer treatment, Kennedy Kong, : 1935 is a current urology patient of [facility] who is getting bladder cancer treatments. Please consider helping this patient with financial services that are not covered by the patients insurance. Thank you for any and all assistance you can give this patient. Please feel free to contact our office with any questions or concerns. Sincerely, Kylie Dietrich M.D., F.A.C.S. [facility] [address] [place] [address] Valid Dates :04/20/24- 04/20/25NoProtestant HospitalBasophils Auto (Bld) [#/Vol]on 48-18-2060Idankwgys (Bld) [#/Vol]10*3/uL<0.11[facility] HospitalBasophils/100 WBC Auto (Bld)on 21-78-0011Atxjxwlfo/100 WBC (Bld) 0.4 %[facility] HospitalBlood manual differential comment interpretation narrativeon 25-29-9653Fmtmeg differential comment Joshua (Bld) [Interp]AutoMartin Memorial HospitalEosinophils/100 WBC Auto (Bld)on 36-06-3081Hvdfvivaefw/100 WBC (Bld)4.3 %[facility] Erythrocyte distribution width Auto (RBC) [Ratio]on 14-54-2040Elqdqonzkuo distribution width (RBC) [Ratio]14.6 %11.5-15.0[facility] Hematocrit Auto (Bld) [Volume fraction]on 19-53-8057Gtbvocatea (Bld) [Volume fraction]36.3 %Low39.0-51.0[facility] HospitalHemoglobin [Mass/volume] in Bloodon 37-88-1584Cwimowqxfr (Bld) [Mass/Vol]11.8 g/dLLow 13.0-17.0[facility] HospitalLaboratory - Chemistry and Chemistry - challengeon 51-58-3439Ugsjmil [Mass/Vol]3.8 g/dLLow3.9-4.9[facility] HospitalALP [Catalytic activity/Vol]53 U/J82-603MimteudfeMartin Memorial HospitalALT [Catalytic activity/Vol]13 U/R14-19QinatoqtgMartin Memorial Hospital AST [Catalytic activity/Vol]15 U/Y55-20GuetnsypdMartin Memorial Hospital Bilirubin [Mass/Vol]0.2 mg/dL0.2-1.3FMcKitrick HospitalCalcium [Mass/Vol]9.2 mg/dL8.5-10.2FMcKitrick HospitalChloride [Moles/Vol] 112 mmol/HYlkw63-784RgjguhiwlMartin Memorial HospitalCO2 [Moles/Vol]23 mmol/L 22-30[facility] HospitalCreatinine [Mass/Vol]1.19 mg/dL0.73-1.22 [facility] HospitalGlucose [Mass/Vol]135 mg/fRLumv74-38JgwqtajtxMartin Memorial HospitalComment on above:The [place] Diabetes Association (ADA) provides guidance for cutoff values for fasting glucose andrandom glucose. The ADA defines fasting as no caloric intake for at least 8 hours. Fasting plasma gl ucose results between 100 to 125 mg/dL indicate increased risk for diabetes (prediabetes).Fasting plasma glucose results greater than or equal to 126 mg/dL meet the criteria for diagnosis of diabetes. In the absence of unequivocal hyperglycemia, results should be confirmed by repeat testing. In a patient with classic symptoms of hyperglycemia or hyperglycemic crisis, random plasma glucose resultsgreater than or equal to 200 mg/dL meet the criteria for diagnosis of diabetes.Reference: Standardsof Medical Care in Diabetes 2016, [place] Diabetes Association. Diabetes Care. 2016.39(Suppl 1).Potassium [Moles/Vol]4.8 mmol/L 3.7-5.1FUniversity Hospitals Elyria Medical Centerodium [Moles/Vol]143 mmol/N842-600 [facility] HospitalUrea nitrogen [Mass/Vol]34 mg/dLHigh9-24 [facility] HospitalLaboratory - Hematology and Cell countson 25-38-8765Pldpjehpcde (Bld) [#/Vol]0.23 10*3/uL<0.46[facility] HospitalImmature granulocytes/100 WBC (Bld)0.2 %[facility] Leukocytes [#/volume] corrected for nucleated erythrocytes in Blood by Automated counon 01-66-1376QTU corrected for nucl RBC Auto (Bld) [#/Vol]5.39 k/uL 3.70-11.00[facility] HospitalLymphocytes Auto (Bld) [#/Vol]on 98-98-9010Skhzzytnpxg (Bld) [#/Vol]0.90 10*3/uLLow1.00-4.00[facility] HospitalLymphocytes/100 WBC Auto (Bld)on 59-21-2839Ubkdrcetadn/100 WBC (Bld)16.7 %[facility] HospitalMCH Auto (RBC) [Entitic mass]on 67-17-1774KNU (RBC) [Entitic mass]30.3 pg26.0-34.0[facility] HospitalMCHC Auto (RBC) [Mass/Vol]on 30-78-2510KMYV (RBC) [Mass/Vol]32.5 g/dL 30.5-36.0[facility] HospitalMCV Auto (RBC) [Entitic vol]on 14-35-9380JFL (RBC) [Entitic vol]93.3 fL80.0-100.0[facility] HospitalMonocytes Auto (Bld) [#/Vol]on 81-69-7225Qzspyfsce (Bld) [#/Vol]0.88 10*3/uLHigh<0.87[facility] HospitalMonocytes/100 WBC Auto (Bld)on 54-33-7035Udhwdqyhu/100 WBC (Bld)16.3 %[facility] Neutrophils Auto (Bld) [#/Vol]on 83-16-3398Luxmdnxqjwb (Bld) [#/Vol]3.35 10*3/uL 1.45-7.50[facility] HospitalNeutrophils/100 WBC Auto (Bld)on 67-44-0994Yecvpjfjzcf/100 WBC (Bld)62.1 %[facility] HospitalNo Panel Informationon 66-47-1945Senuptelo GFR (CKD-EPI)59 mL/min/1.73m???Low>=60 [facility] HospitalComment on above:Estimated Glomerular Filtration Rate (eGFR) is calculated using the 2020 CKD-EPI creatinine equation. This equation utilizes serum creatinine, sex, and age as parameters. The creatinine assay has traceable calibration to isotope dilution-mass spectrometry. Refer to KDIGO guidelines for clinical interpretation. In patients with unstable renal function, e.g. those with acute kidney injury, the eGFRmay not accurately reflect actual GFR.Immature Granulocyte # (Auto)<0.03 k/uL<0.10 [facility] HospitalNucleated RBC Auto (Bld) [#/Vol]on 03-25-2024 Nucleated RBC (Bld) [#/Vol]10*3/uL<0.01[facility] Nucleated erythrocytes [Presence] in Blood by Automated counton 03-25-2024 Nucleated RBC Auto Ql (Bld)0.0 /100{WBC}[facility] Platelet mean volume Auto (Bld) [Entitic vol]on 98-29-1617Ioahfsnr mean volume (Bld) [Entitic vol]8.6 fLLow9.0-12.7FMcKitrick HospitalPlatelets Auto (Bld) [#/Vol]on 57-39-7846Nowgbwkmr (Bld) [#/Vol]165 10*3/vZ701-490 [facility] HospitalComment on above:No clot detected. No clot detected.Protein [Mass/volume] in Serum or Plasmaon 83-87-7347Ljgamvf [Mass/Vol] 6.2 g/dLLow6.3-8.0[facility] HospitalRBC Auto (Bld) [#/Vol]on 36-40-4501CSV (Bld) [#/Vol]3.89 10*6/uLLow4.20-6.00[facility]tering Health Springfielderum or plasma anion gap determinationon 74-59-3683Ihsco gap [Moles/Vol]8 mmol/L06-04Martin [facility] HospitalC Urineon 98-31-0368Plwjflri identified Cx Nom (U)Microbiology PROCEDURE: Urine Culture [R1] SOURCE: U Random BODY SITE: COLLECTED DATE/TIME: 03/04/2024 09:46 EDT RECEIVED DATE/TIME: 03/04/2024 18:18 EDT START DATE/TIME: 03/04/2024 18:18 EDT FREE TEXT SOURCE: ISHMAEL Jade APRNP-C, Yasmany RIVERA, MAINS AND SERVICE SUPERVISOR-C, Sridevi X Sridevi X FINAL REPORTS Final Report [] Verified Date/Time: 03/06/2024 08:32 EDT 3,000 cfu/ml Mixed skin contaminants Performing Locations R1: This test was performed at: [facility], [address] [place] [address], [address] , , LirqieYmfichMount Carmel Health SystemComment on above:Performed By: #### [id number] #### [facility] [address] [place] [address]Fboirgnu identified Cx Nom (U)Microbiology PROCEDURE: Urine Culture [R1] SOURCE: U Random BODY SITE: COLLECTED DATE/TIME: 03/04/2024 09:46 EDT RECEIVED DATE/TIME: 03/04/2024 18:18 EDT START DATE/TIME: 03/04/2024 18:18 EDT FREE TEXT SOURCE: Yasmany FINISHER POLISHER, MAINS AND SERVICE SUPERVISOR-C, Ortomy FINISHER POLISHER, MAINS AND SERVICE SUPERVISOR-C, Sridevi X Sridevi X FINAL REPORTS Final Report [] Verified Date/Time: 03/06/2024 08:32 EDT 3,000 cfu/ml Mixed skin contaminants Performing Locations R1: This test was performed at: [facility], [address] [place] [address], [phone]- , , JesbpyEodniwProtestant HospitalComment on above:Performed By: #### [id number] #### [facility] [address] [place] [address]Kwfodvqak Auto (Bld) [#/Vol]on 31-71-1129Ihyyaaajh (Bld) [#/Vol]10*3/uL<0.11[facility] HospitalBasophils/100 WBC Auto (Bld) on 59-45-4275Prokoegbl/100 WBC (Bld)0.4 %[facility] HospitalBlood manual differential comment interpretation narrativeon 36-07-0189Glxefe differential comment Joshua (Bld) [Interp]AutoMartin Memorial Hospital Eosinophils/100 WBC Auto (Bld)on 51-34-2399Djetwxykvaj/100 WBC (Bld)4.7 % [facility] HospitalErythrocyte distribution width Auto (RBC) [Ratio]on 34-06-7159Wveilklaqwv distribution width (RBC) [Ratio]14.1 %11.5-15.0 [facility] HospitalHematocrit Auto (Bld) [Volume fraction]on 97-93-8464Ebigbtkyla (Bld) [Volume fraction]38.3 %39.0-51.0[facility] HospitalHemoglobin [Mass/volume] in Bloodon 11-19-7203Nzvghkzydc (Bld) [Mass/Vol]12.3 g/dL13.0-17.0[facility] HospitalLaboratory - Chemistry and Chemistry - challengeon 97-77-6084Cgkkoon [Mass/Vol]3.7 g/dL 3.9-4.9[facility] HospitalALP [Catalytic activity/Vol]57 U/L38-113 [facility] HospitalALT [Catalytic activity/Vol]15 U/L10-54 [facility] HospitalAST [Catalytic activity/Vol]14 U/L14-40 [facility] HospitalBilirubin [Mass/Vol]0.2 mg/dL0.2-1.3FMcKitrick HospitalCalcium [Mass/Vol]9.3 mg/dL8.5-10.2FMcKitrick HospitalChloride [Moles/Vol]106 mmol/Q06-647WrwmgsesfMartin Memorial HospitalCO2 [Moles/Vol]27 mmol/J43-85MqfldxlrsMartin Memorial HospitalCreatinine [Mass/Vol]1.10 mg/dL0.73-1.22[facility] HospitalGlucose [Mass/Vol] 93 mg/zM38-79XdeojfekoMartin Memorial HospitalComment on above:The [place] Diabetes Association (ADA) provides guidance for cutoff values for fasting glucose andrandom glucose. The ADA defines fasting as no [...] hyperglycemia or hyperglycemic crisis, random plasma glucose resultsgreater than or equal to 200 mg/dL meet the criteria for diagnosis of diabetes.Reference: Standardsof Medical Care in Diabetes 2016, [place] Diabetes Association. Diabetes Care. 2016.39(Suppl 1). Potassium [Moles/Vol]4.4 mmol/L3.7-5.1FUniversity Hospitals Elyria Medical Centerodium [Moles/Vol]141 mmol/K711-816IjemqcdysMartin Memorial HospitalUrea nitrogen [Mass/Vol]21 mg/dL9-24[facility] HospitalLaboratory - Hematology and Cell countson 49-00-0882Uitpzxswzfm (Bld) [#/Vol]0.21 10*3/uL<0.46[facility] HospitalImmature granulocytes/100 WBC (Bld)0.4 %[facility] HospitalLeukocytes [#/volume] corrected for nucleated erythrocytes in Blood by Automated counon 29-61-7980XCO corrected for nucl RBC Auto (Bld) [#/Vol]4.48 k/uL3.70-11.00[facility] Lymphocytes Auto (Bld) [#/Vol]on 86-63-5076Mcrqyqrcozc (Bld) [#/Vol]0.66 10*3/uL 1.00-4.00[facility] HospitalLymphocytes/100 WBC Auto (Bld)on 33-43-5097Pvzpfvccqik/100 WBC (Bld)14.7 %[facility] HospitalH Auto (RBC) [Entitic mass]on 45-18-2873WHH (RBC) [Entitic mass]29.7 pg26.0-34.0 [facility] HospitalMCHC Auto (RBC) [Mass/Vol]on 54-72-8592KVVA (RBC) [Mass/Vol]32.1 g/dL30.5-36.0[facility] HospitalMCV Auto (RBC) [Entitic vol]on 92-66-6429ORL (RBC) [Entitic vol]92.5 fL80.0-100.0 [facility] HospitalMonocytes Auto (Bld) [#/Vol]on 02-26-2024 Monocytes (Bld) [#/Vol]0.71 10*3/uL<0.87[facility] Monocytes/100 WBC Auto (Bld)on 93-21-8568Wprlxjukw/100 WBC (Bld)15.8 %[facility] HospitalNeutrophils Auto (Bld) [#/Vol]on 93-15-6889Jlsnhwgtpff (Bld) [#/Vol]2.86 10*3/uL1.45-7.50[facility] Neutrophils/100 WBC Auto (Bld)on 76-79-1487Zezmtehvcbr/100 WBC (Bld)64.0 % [facility] HospitalNo Panel Informationon 94-27-8783Qochuyalf GFR (CKD-EPI)65 mL/min/1.73m???>=60[facility] HospitalComment on above:Estimated Glomerular Filtration Rate (eGFR) is calculated using the 2020 CKD-EPI creatinine equation. This equation utilizes serum creatinine, sex, and age as parameters. The creatinine assay has traceable calibration to isotope dilution-mass spectrometry. Refer to KDIGO guidelines for clinical inte rpretation. In patients with unstable renal function, e.g. those with acute kidney injury, the eGFRmay not accurately reflect actual GFR.Immature Granulocyte # (Auto)<0.03 k/uL<0.10[facility] HospitalNucleated RBC Auto (Bld) [#/Vol]on 72-36-3550Fdxsbrutj RBC (Bld) [#/Vol]10*3/uL<0.01 [facility] HospitalNucleated erythrocytes [Presence] in Blood by Automated counton 01-32-8426Nbrkndvve RBC Auto Ql (Bld)0.0 /100{WBC}[facility] HospitalPlatelet mean volume Auto (Bld) [Entitic vol]on 38-86-1178Soickugc mean volume (Bld) [Entitic vol]8.7 fL9.0-12.7FMcKitrick HospitalPlatelets Auto (Bld) [#/Vol]on 42-84-5437Mqtrlwqrm (Bld) [#/Vol]155 10*3/zT075-028TegeuoplbMartin Memorial HospitalProtein [Mass/volume] in Serum or Plasmaon 17-95-6875Usicldu [Mass/Vol]6.2 g/dL6.3-8.0[facility] HospitalRBC Auto (Bld) [#/Vol]on 44-87-6352PHR (Bld) [#/Vol]4.14 10*6/uL4.20-6.00K[facility]tering Health Springfielderum or plasma anion gap determinationon 85-06-8887Ajkld gap [Moles/Vol]8 mmol/L9-18FMcKitrick HospitalBasic metabolic 2000 panelOrdered By: Julio Way on 02-19-2024 Anion gap [Moles/Vol]5 mmol/LLow9 - 18 mmol/LCleveland ClinicCalcium [Mass/Vol] 8.3 mg/dLLow8.5 - 10.2 mg/dLCleveland ClinicChloride [Moles/Vol]107 mmol/LHigh97 - 105 mmol/LCleveland ClinicCO2 [Moles/Vol]25 mmol/L22 - 30 mmol/LCleveland ClinicCreatinine [Mass/Vol]0.90 mg/dL0.73 - 1.22 mg/dLCherrington HospitalGFR/1.73 sq M.predicted among non-blacks MDRD (S/P/Bld) [Vol rate/Area]83 mL/min/{1.73_m2}- PINBucyrus Community HospitalComment on above:Estimated Glomerular Filtration Rate (eGFR) is calculated using the 2020 CKD-EPI creatinine equation. This equation utilizes serum creatinine, sex, and age as parameters. The creatinine assay has traceable calibration to isotope dilution-mass spectrometry. Refer to KDIGO guidelines for clinical interpretation. In patients with unstable renal function, e.g. those with acute kidney injury, the eGFRmay not accurately reflect actual GFR.Glucose [Mass/Vol]114 mg/mPPdgb89 - 99 mg/dL Cherrington HospitalComcorewell health will[facility] on above:The [place] Diabetes Association (ADA) provides guidance for cutoff values for fasting glucose andrandom glucose. The ADA defines fasting as no caloric intake for at least 8 hours. Fasting plasma gl ucose results between 100 to 125 mg/dL indicate [...] Standards of Medical Care in Diabetes 2016, [place] [employer]. Diabetes Care. 2016.39(Suppl 1). Interpretation and review of laboratory resultsAbnormalCleveland ClinicPotassium [Moles/Vol]4.4 mmol/L3.7 - 5.1 mmol/LCleveland ClinicSodium [Moles/Vol]137 mmol/L136 - 144 mmol/LCleveland ClinicUrea nitrogen [Mass/Vol]20 mg/dL9 - 24 mg/dLPomerene HospitalBasophils Auto (Bld) [#/Vol]on 02-19-2024 Basophils (Bld) [#/Vol]10*3/uL<0.11[facility] Basophils/100 WBC Auto (Bld)on 23-73-8246Oczvkkeam/100 WBC (Bld)0.5 %[facility] HospitalBlood manual differential comment interpretation narrativeon 48-95-8001Exlpah differential comment Joshua (Bld) [Interp]Auto [facility] HospitalCBC W Auto Differential panel (Bld)on 14-00-1085Ecfcdzdsz (Bld) [#/Vol]NINFClevelAshtabula County Medical CenterBasophils/100 WBC (Bld)0.5 %[facility] HospitalDifferential cell count method Nom (Bld)AutoClevelAshtabula County Medical Center Eosinophils (Bld) [#/Vol]0.17 10*3/uLNINFCherrington HospitalEosinophils/100 WBC (Bld)3.9 %[facility] HospitalErythrocyte distribution width (RBC) [Ratio]13.8 %11.5 - 15.0 %[facility] HospitalHematocrit (Bld) [Volume fraction]35.3 %Low39.0 - 51.0 %[facility] HospitalHemoglobin (Bld) [Mass/Vol]11.4 g/dLLow13.0 - 17.0 g/dL [facility] HospitalImmature granulocytes (Bld) [#/Vol]NINFClevelAshtabula County Medical CenterImmature granulocytes/100 WBC (Bld)0.2 %[facility] HospitalInterpretation and review of laboratory resultsAbnormalClevelAshtabula County Medical CenterLymphocytes (Bld) [#/Vol]0.76 10*3/uL LowCleSt. Charles HospitalLymphocytes/100 WBC (Bld)17.3 %[facility] CenterH (RBC) [Entitic mass]29.8 pg26.0 - 34.0 pgClevelAppleton Municipal HospitalHC (RBC) [Mass/Vol]32.3 g/dL30.5 - 36.0 g/dLSalem Regional Medical CenterV (RBC) [Entitic vol]92.4 fL80.0 - 100.0 fLCOhioHealth Hardin Memorial HospitalMonocytes (Bld) [#/Vol]0.60 10*3/uLNINFCherrington Hospital Monocytes/100 WBC (Bld)13.6 %[facility] HospitalNeutrophils (Bld) [#/Vol]2.84 10*3/uLCherrington HospitalNeutrophils/100 WBC (Bld)64.5 %[facility] HospitalNucleated RBC (Bld) [#/Vol]NINFClevelAshtabula County Medical CenterNucleated RBC/100 WBC (Bld) [Ratio]0.0 % /100 WBCCherrington HospitalPlatelet mean volume (Bld) [Entitic vol]8.7 fLLow9.0 - 12.7 fLCleveland ClinicPlatelets (Bld) [#/Vol]153 10*3/uLCherrington HospitalRBC (Bld) [#/Vol]3.82 10*6/uLLow4.20 - 6.00 m/[facility] HospitalWBC (Bld) [#/Vol] 4.40 10*3/uLPomerene HospitalEosinophils/100 WBC Auto (Bld)on 09-42-1985Sznxjxdqaoj/100 WBC (Bld)3.9 %[facility] Erythrocyte distribution width Auto (RBC) [Ratio]on 16-31-2996Spzfyxgrjsd distribution width (RBC) [Ratio]13.8 %11.5-15.0[facility] Hematocrit Auto (Bld) [Volume fraction]on 21-71-4927Gbsmzqqjnz (Bld) [Volume fraction]35.3 %39.0-51.0[facility] HospitalHemoglobin [Mass/volume] in Bloodon 81-99-7010Gtcrwtbgqx (Bld) [Mass/Vol]11.4 g/dL13.0-17.0 [facility] HospitalLaboratory - Chemistry and Chemistry - challengeon 20-74-7524Mjqucxo [Mass/Vol]8.3 mg/dL8.5-10.2FMcKitrick HospitalChloride [Moles/Vol]107 mmol/V08-186AwosasdipMartin Memorial HospitalCO2 [Moles/Vol]25 mmol/X55-01UxvineprvMartin Memorial HospitalCreatinine [Mass/Vol]0.90 mg/dL0.73-1.22[facility] HospitalGlucose [Mass/Vol] 114 mg/rB75-36NlxvqnumuMartin Memorial HospitalComment on above:The [place] Diabetes Association (ADA) provides guidance for cutoff values for fasting glucose andrandom glucose. The ADA defines fasting as no [...] hyperglycemia or hyperglycemic crisis, random plasma glucose resultsgreater than or equal to 200 mg/dL meet the criteria for diagnosis of diabetes.Reference: Standardsof Medical Care in Diabetes 2016, [place] [employer]. Diabetes Care. 2016.39(Suppl 1). Potassium [Moles/Vol]4.4 mmol/L3.7-5.1FUniversity Hospitals Elyria Medical Centerodium [Moles/Vol]137 mmol/B742-789IffxxchlpMartin Memorial HospitalUrea nitrogen [Mass/Vol]20 mg/dL9-24[facility] HospitalLaboratory - Hematology and Cell countson 23-40-9122Shlbftpodba (Bld) [#/Vol]0.17 10*3/uL<0.46[facility] HospitalImmature granulocytes/100 WBC (Bld)0.2 %[facility] HospitalLeukocytes [#/volume] corrected for nucleated erythrocytes in Blood by Automated counon 47-47-5928VSJ corrected for nucl RBC Auto (Bld) [#/Vol]4.40 k/uL3.70-11.00[facility] Lymphocytes Auto (Bld) [#/Vol]on 28-14-4552Trcjxfrymrw (Bld) [#/Vol]0.76 10*3/uL 1.00-4.00[facility] HospitalLymphocytes/100 WBC Auto (Bld)on 91-23-0083Wmskhnqksbm/100 WBC (Bld)17.3 %[facility] HospitalMCH Auto (RBC) [Entitic mass]on 07-11-8140AQG (RBC) [Entitic mass]29.8 pg26.0-34.0 [facility] HospitalMCHC Auto (RBC) [Mass/Vol]on 53-92-6305QNJE (RBC) [Mass/Vol]32.3 g/dL30.5-36.0[facility] HospitalMCV Auto (RBC) [Entitic vol]on 07-15-5877UQP (RBC) [Entitic vol]92.4 fL80.0-100.0 [facility] HospitalMonocytes Auto (Bld) [#/Vol]on 02-19-2024 Monocytes (Bld) [#/Vol]0.60 10*3/uL<0.87[facility] Monocytes/100 WBC Auto (Bld)on 60-33-6751Mqwsmnaxw/100 WBC (Bld)13.6 %[facility] HospitalNeutrophils Auto (Bld) [#/Vol]on 71-86-1970Iyifdnvzzdi (Bld) [#/Vol]2.84 10*3/uL1.45-7.50[facility] Neutrophils/100 WBC Auto (Bld)on 33-02-3833Rijionpgryy/100 WBC (Bld)64.5 % [facility] HospitalNo Panel Informationon 79-15-5887Xfhfgjmyf GFR (CKD-EPI)83 mL/min/1.73m???>=60[facility] HospitalComment on above:Estimated Glomerular Filtration Rate (eGFR) is calculated using the 2020 CKD-EPI creatinine equation. This equation utilizes serum creatinine, sex, and age as parameters. The creatinine assay has traceable calibration to isotope dilution-mass spectrometry. Refer to KDIGO guidelines for clinical inte rpretation. In patients with unstable renal function, e.g. those with acute kidney injury, the eGFRmay not accurately reflect actual GFR.Immature Granulocyte # (Auto)<0.03 k/uL<0.10[facility] HospitalNucleated RBC Auto (Bld) [#/Vol]on 18-95-0773Vqsesrnsu RBC (Bld) [#/Vol]10*3/uL<0.01 [facility] HospitalNucleated erythrocytes [Presence] in Blood by Automated counton 63-25-7115Pohvaexuk RBC Auto Ql (Bld)0.0 /100{WBC}[facility] HospitalPlatelet mean volume Auto (Bld) [Entitic vol]on 92-96-5787Ckfgycpw mean volume (Bld) [Entitic vol]8.7 fL9.0-12.7FMcKitrick HospitalPlatelets Auto (Bld) [#/Vol]on 71-07-1662Xvcfeleyb (Bld) [#/Vol]153 10*3/mR976-823KcnljkxabMartin Memorial HospitalRBC Auto (Bld) [#/Vol] on 02-42-1216JVX (Bld) [#/Vol]3.82 10*6/uL4.20-6.00[facility] Springfielderum or plasma anion gap determinationon 41-62-4685Gecnz gap [Moles/Vol]5 mmol/L9-18FMcKitrick HospitalUrine culture routineOrdered By: Eugene Chaparro on 16-18-0236Xvldpxeh identified Cx Nom (U)[facility] HospitalBasophils Auto (Bld) [#/Vol]on 01-74-1645Tbrimbisa (Bld) [#/Vol] 10*3/uL<0.11[facility] HospitalBasophils/100 WBC Auto (Bld)on 64-13-6179Tgpfomwdx/100 WBC (Bld)0.4 %[facility] HospitalBlood manual differential comment interpretation narrativeon 50-40-7586Xjvspq differential comment Joshua (Bld) [Interp]AutoMartin [facility] Hospital Eosinophils/100 WBC Auto (Bld)on 50-84-9332Amsibsitrzp/100 WBC (Bld)4.4 % [facility] HospitalErythrocyte distribution width Auto (RBC) [Ratio]on 94-09-7691Ombrznprprh distribution width (RBC) [Ratio]13.2 %11.5-15.0 [facility] HospitalHematocrit Auto (Bld) [Volume fraction]on 17-99-0953Acpdoqubfx (Bld) [Volume fraction]40.8 %39.0-51.0[facility] HospitalHemoglobin [Mass/volume] in Bloodon 38-63-1605Upgyjuuqky (Bld) [Mass/Vol]13.1 g/dL13.0-17.0[facility] HospitalLaboratory - Chemistry and Chemistry - challengeon 62-65-5120Fyyjqfo [Mass/Vol]3.9 g/dL 3.9-4.9[facility] HospitalALP [Catalytic activity/Vol]62 U/L38-113 [facility] HospitalALT [Catalytic activity/Vol]18 U/L10-54 [facility] HospitalAST [Catalytic activity/Vol]14 U/L14-40 [facility] HospitalBilirubin [Mass/Vol]0.3 mg/dL0.2-1.3FMcKitrick HospitalCalcium [Mass/Vol]9.7 mg/dL8.5-10.2FMcKitrick HospitalChloride [Moles/Vol]105 mmol/J98-977QvqehtqsxMartin Memorial HospitalCO2 [Moles/Vol]26 mmol/T73-03LteazjftjMartin Memorial HospitalCreatinine [Mass/Vol]1.01 mg/dL0.73-1.22[facility] HospitalGlucose [Mass/Vol] 84 mg/fJ13-79CvmngaouxMartin Memorial HospitalComment on above:The [place] Diabetes Association (ADA) provides guidance for cutoff values for fasting glucose andrandom glucose. The ADA defines fasting as no [...] hyperglycemia or hyperglycemic crisis, random plasma glucose resultsgreater than or equal to 200 mg/dL meet the criteria for diagnosis of diabetes.Reference: Standardsof Medical Care in Diabetes 2016, [place] [employer]. Diabetes Care. 2016.39(Suppl 1). Potassium [Moles/Vol]4.8 mmol/L3.7-5.1FUniversity Hospitals Elyria Medical Centerodium [Moles/Vol]142 mmol/O450-456KbwqbdkrtMartin Memorial HospitalUrea nitrogen [Mass/Vol]23 mg/dL9-24[facility] HospitalLaboratory - Hematology and Cell countson 67-80-6665Bbglrobhinp (Bld) [#/Vol]0.25 10*3/uL<0.46[facility] HospitalImmature granulocytes (Bld) [#/Vol]0.03 10*3/uL<0.10 [facility] HospitalImmature granulocytes/100 WBC (Bld)0.5 % [facility] HospitalLeukocytes [#/volume] corrected for nucleated erythrocytes in Blood by Automated counon 46-97-5756ASI corrected for nucl RBC Auto (Bld) [#/Vol]5.64 k/uL3.70-11.00[facility] Lymphocytes Auto (Bld) [#/Vol]on 47-64-1252Wsonuokecsq (Bld) [#/Vol]0.91 10*3/uL 1.00-4.00[facility] HospitalLymphocytes/100 WBC Auto (Bld)on 48-87-2480Vzebcpvvhvp/100 WBC (Bld)16.1 %[facility] HospitalH Auto (RBC) [Entitic mass]on 08-58-6374HDY (RBC) [Entitic mass]29.4 pg26.0-34.0 [facility] HospitalMCHC Auto (RBC) [Mass/Vol]on 81-04-1306RPCC (RBC) [Mass/Vol]32.1 g/dL30.5-36.0[facility] HospitalMCV Auto (RBC) [Entitic vol]on 34-82-7650TDY (RBC) [Entitic vol]91.5 fL80.0-100.0 [facility] HospitalMonocytes Auto (Bld) [#/Vol]on 02-12-2024 Monocytes (Bld) [#/Vol]0.74 10*3/uL<0.87[facility] Monocytes/100 WBC Auto (Bld)on 38-48-5526Bdaqbxpxm/100 WBC (Bld)13.1 %[facility] HospitalNeutrophils Auto (Bld) [#/Vol]on 82-89-9015Ghvsoadrdrj (Bld) [#/Vol]3.69 10*3/uL1.45-7.50[facility] Neutrophils/100 WBC Auto (Bld)on 21-31-4201Dhlpqiuhofn/100 WBC (Bld)65.5 % [facility] HospitalNo Panel Informationon 08-78-1221Rxkyujilu GFR (CKD-EPI)72 mL/min/1.73m???>=60[facility] HospitalComment on above:Estimated Glomerular Filtration Rate (eGFR) is calculated using the 2020 CKD-EPI creatinine equation. This equation utilizes serum creatinine, sex, and age as parameters. The creatinine assay has traceable calibration to isotope dilution-mass spectrometry. Refer to KDIGO guidelines for clinical inte rpretation. In patients with unstable renal function, e.g. those with acute kidney injury, the eGFRmay not accurately reflect actual GFR.Nucleated RBC Auto (Bld) [#/Vol]on 75-50-4657Unfvexphy RBC (Bld) [#/Vol]10*3/uL<0.01[facility] HospitalNucleated erythrocytes [Presence] in Blood by Automated counton 81-95-6537Wissmhnob RBC Auto Ql (Bld)0.0 /100{WBC}[facility] HospitalPlatelet mean volume Auto (Bld) [Entitic vol]on 82-56-7001Sxxvfqtn mean volume (Bld) [Entitic vol]8.7 fL9.0-12.7FMcKitrick Hospital Platelets Auto (Bld) [#/Vol]on 80-14-9256Nzvfledxf (Bld) [#/Vol]188 10*3/uL 150-400[facility] HospitalProtein [Mass/volume] in Serum or Plasma on 48-08-7612Umqxrwp [Mass/Vol]6.7 g/dL6.3-8.0[facility] RBC Auto (Bld) [#/Vol]on 55-12-2633TIB (Bld) [#/Vol]4.46 10*6/uL4.20-6.00 [facility] Springfielderum or plasma anion gap determinationon 17-07-6694Zadap gap [Moles/Vol]11 mmol/L9-18FMcKitrick Hospital Laboratory - Chemistry and Chemistry - challengeon 49-69-2461Fftwsdi [Mass/Vol] 3.7 g/dL3.9-4.9[facility] HospitalALP [Catalytic activity/Vol]59 U/J56-653ZecoxulmpMartin Memorial HospitalALT [Catalytic activity/Vol]28 U/L 10-54[facility] HospitalAST [Catalytic activity/Vol]26 U/L14-40 [facility] HospitalBilirubin [Mass/Vol]0.3 mg/dL0.2-1.3FMcKitrick HospitalCalcium [Mass/Vol]9.5 mg/dL8.5-10.2FMcKitrick HospitalChloride [Moles/Vol]108 mmol/P92-257BtunuzrfyMartin Memorial HospitalCO2 [Moles/Vol]24 mmol/Z10-11EqwhekcpqMartin Memorial HospitalCreatinine [Mass/Vol]1.11 mg/dL0.73-1.22[facility] HospitalGlucose [Mass/Vol] 113 mg/oH64-45CqsnbaaffMartin Memorial HospitalComment on above:The [place] Diabetes Association (ADA) provides guidance for cutoff values for fasting glucose andrandom glucose. The ADA defines fasting as no [...] hyperglycemia or hyperglycemic crisis, random plasma glucose resultsgreater than or equal to 200 mg/dL meet the criteria for diagnosis of diabetes.Reference: Standardsof Medical Care in Diabetes 2016, [place] [employer]. Diabetes Care. 2016.39(Suppl 1). Potassium [Moles/Vol]5.0 mmol/L3.7-5.1FUniversity Hospitals Elyria Medical Centerodium [Moles/Vol]143 mmol/A144-597WsixqgekmMartin Memorial HospitalUrea nitrogen [Mass/Vol]20 mg/dL9-24[facility] HospitalNo Panel Informationon 55-96-0211Lzxfeskgo GFR (CKD-EPI)64 mL/min/1.73m???>=60[facility] HospitalComment on above:Estimated Glomerular Filtration Rate (eGFR) is calculated using the 2020 CKD-EPI creatinine equation. This equation utilizes serum creatinine, sex, and age as parameters. The creatinine assay has traceable calibration to isotope dilution-mass spectrometry. Refer to KDIGO guidelines for clinical interpretation. In patients with unstable renal function, e.g. those with acute kidney injury, the eGFRmay not accurately reflect actual GFR. Protein [Mass/volume] in Serum or Plasmaon 71-17-6194Yookbfr [Mass/Vol]6.3 g/dL 6.3-8.0[facility] Springfielderum or plasma anion gap determination on 09-08-5682Mzcgx gap [Moles/Vol]11 mmol/L9-18FMcKitrick Hospital Basophils Auto (Bld) [#/Vol]on 92-92-1133Hwypzpfuj (Bld) [#/Vol]0.03 10*3/uL <0.11[facility] HospitalBasophils/100 WBC Auto (Bld)on 02-04-2024 Basophils/100 WBC (Bld)0.5 %[facility] HospitalBlood manual differential comment interpretation narrativeon 36-67-8705Kyciwt differential comment Joshua (Bld) [Interp]AutoMartin Memorial HospitalCBC W Auto Differential panel (Bld)on 89-52-4673Nfvdselyy (Bld) [#/Vol]0.03 10*3/uL<0.11 k/uLCleglenbeigh hospital ClinicBasophils/100 WBC (Bld)0.5 %[facility] HospitalDifferential cell count method Nom (Bld)AutoCleveland ClinicEosinophils (Bld) [#/Vol]0.26 10*3/uL<0.46 k/uLCleglenbeigh hospital ClinicEosinophils/100 WBC (Bld)4.0 %[facility] Erythrocyte distribution width (RBC) [Ratio]13.2 %11.5 - 15.0 %[facility] Hematocrit (Bld) [Volume fraction]39.8 %39.0 - 51.0 %[place] ClinicHemoglobin (Bld) [Mass/Vol]12.8 g/dLLow13.0 - 17.0 g/dLCherrington HospitalImmature granulocytes (Bld) [#/Vol]<0.10 k/uLCherrington HospitalImmature granulocytes/100 WBC (Bld)0.3 %[facility] HospitalLymphocytes (Bld) [#/Vol]1.09 10*3/uL1.00 - 4.00 k/uLCleglenbeigh hospital ClinicLymphocytes/100 WBC (Bld)17.0 %[facility] HospitalMCH (RBC) [Entitic mass]29.6 pg26.0 - 34.0 pgClevelAppleton Municipal HospitalHC (RBC) [Mass/Vol]32.2 g/dL30.5 - 36.0 g/dLCherrington HospitalMCV (RBC) [Entitic vol]92.1 fL80.0 - 100.0 fLCleveland ClinicMonocytes (Bld) [#/Vol]0.99 10*3/uLHigh<0.87 k/uLConception Junction ClinicMonocytes/100 WBC (Bld)15.4 %[place] ClinicNeutrophils (Bld) [#/Vol]4.03 10*3/uL1.45 - 7.50 k/uLConception Junction ClinicNeutrophils/100 WBC (Bld)62.8 %[facility] HospitalNucleated RBC (Bld) [#/Vol]<0.01 k/uLCherrington HospitalNucleated RBC/100 WBC (Bld) [Ratio]0.0 /100 WBCConception Junction ClinicPlatelet mean volume (Bld) [Entitic vol]8.9 fLLow9.0 - 12.7 fLClevelformerly [facility] ClinicPlatelets (Bld) [#/Vol]181 10*3/uL150 - 400 k/uLCherrington HospitalRBC (Bld) [#/Vol]4.32 10*6/uL4.20 - 6.00 m/uL [facility] HospitalWBC (Bld) [#/Vol]6.42 10*3/uL3.70 - 11.00 k/uLCherrington Hospital Comprehensive metabolic 2000 panelon 46-84-6348Czvwfzi [Mass/Vol]4.0 g/dL3.9 - 4.9 g/dLConception Junction ClinicALP [Catalytic activity/Vol]68 U/L38 - 113 U/LCleveland ClinicALT [Catalytic activity/Vol]15 U/L10 - 54 U/LCleveland ClinicAnion gap [Moles/Vol]10 mmol/L9 - 18 mmol/LC[facility] ClinicAST [Catalytic activity/Vol]14 U/L14 - 40 U/LCleveland ClinicBilirubin [Mass/Vol]0.3 mg/dL0.2 - 1.3 mg/dL [place] ClinicCalcium [Mass/Vol]9.7 mg/dL8.5 - 10.2 mg/dLCherrington Hospital Chloride [Moles/Vol]104 mmol/L97 - 105 mmol/LCleveland ClinicCO2 [Moles/Vol]24 mmol/L22 - 30 mmol/LCleveland ClinicCreatinine [Mass/Vol]1.38 mg/dLHigh0.73 - 1.22 mg/dLCherrington HospitalEstimated Glomerular Filtration Rate49 mL/min/1.73mLow >=60 mL/min/1.73mCleveland ClinicGlucose [Mass/Vol]137 mg/mKKmoz12 - 99 mg/dL [facility] HospitalPotassium [Moles/Vol]4.8 mmol/L3.7 - 5.1 mmol/LCleveland [facility] Protein [Mass/Vol]6.9 g/dL6.3 - 8.0 g/dLBellevue Hospitalodium [Moles/Vol]138 mmol/L136 - 144 mmol/LCleveland [facility] Medical CenterUrea nitrogen [Mass/Vol]32 mg/dLHigh9 - 24 mg/dLCherrington HospitalEosinophils/100 WBC Auto (Bld)on 15-26-4132Iadlixzmtfi/100 WBC (Bld)4.0 %[facility] HospitalErythrocyte distribution width Auto (RBC) [Ratio]on 72-13-2630Vgmollcbtrm distribution width (RBC) [Ratio]13.2 %11.5-15.0[facility] HospitalHematocrit Auto (Bld) [Volume fraction]on 61-23-3309Brresqlsdz (Bld) [Volume fraction]39.8 %39.0-51.0[facility] HospitalHemoglobin [Mass/volume] in Bloodon 51-19-2795Gfrprizezk (Bld) [Mass/Vol]12.8 g/dL13.0-17.0[facility] HospitalLaboratory - Chemistry and Chemistry - challengeon 44-75-5333Lgcwnxo [Mass/Vol]4.0 g/dL 3.9-4.9[facility] HospitalALP [Catalytic activity/Vol]68 U/L38-113 [facility] HospitalALT [Catalytic activity/Vol]15 U/L10-54 [facility] HospitalAST [Catalytic activity/Vol]14 U/L14-40 [facility] HospitalBilirubin [Mass/Vol]0.3 mg/dL0.2-1.3FMcKitrick HospitalCalcium [Mass/Vol]9.7 mg/dL8.5-10.2FMcKitrick HospitalChloride [Moles/Vol]104 mmol/M50-472ZbcqizkdaMartin Memorial HospitalCO2 [Moles/Vol]24 mmol/F27-05ZzriianjoMartin Memorial HospitalCreatinine [Mass/Vol]1.38 mg/dL0.73-1.22[facility] HospitalGlucose [Mass/Vol] 137 mg/bM88-14NutodqudfMartin Memorial HospitalComment on above:The [place] Diabetes Association (ADA) provides guidance for cutoff values for fasting glucose andrandom glucose. The ADA defines fasting as no [...] hyperglycemia or hyperglycemic crisis, random plasma glucose resultsgreater than or equal to 200 mg/dL meet the criteria for diagnosis of diabetes.Reference: Standardsof Medical Care in Diabetes 2016, [place] [employer] Association. Diabetes Care. 2016.39(Suppl 1). Magnesium [Mass/Vol]2.4 mg/dL1.7-2.3FMcKitrick HospitalPotassium [Moles/Vol]4.8 mmol/L3.7-5.1FUniversity Hospitals Elyria Medical Centerodium [Moles/Vol] 138 mmol/M676-961HslcssgfiMartin Memorial HospitalUrea nitrogen [Mass/Vol]32 mg/dL9-24[facility] HospitalLaboratory - Hematology and Cell countson 61-93-4474Xpricnunlwt (Bld) [#/Vol]0.26 10*3/uL<0.46[facility] HospitalImmature granulocytes/100 WBC (Bld)0.3 %[facility] HospitalLeukocytes [#/volume] corrected for nucleated erythrocytes in Blood by Automated counon 66-46-8751GNN corrected for nucl RBC Auto (Bld) [#/Vol]6.42 k/uL3.70-11.00[facility] HospitalLymphocytes Auto (Bld) [#/Vol]on 73-45-8993Bejzlrperps (Bld) [#/Vol]1.09 10*3/uL1.00-4.00[facility] HospitalLymphocytes/100 WBC Auto (Bld)on 78-34-6794Pbfbkxoaqor/100 WBC (Bld)17.0 %[facility] HospitalMAGNESIUM BLDon 05-78-1849Nagjnqstt [Mass/Vol]2.4 mg/dLHigh1.7 - 2.3 mg/dLWayne HealthCare Main [facility] Auto (RBC) [Entitic mass]on 95-70-5094LGB (RBC) [Entitic mass]29.6 pg26.0-34.0[facility] HospitalMCHC Auto (RBC) [Mass/Vol]on 19-78-1537MIAE (RBC) [Mass/Vol]32.2 g/dL30.5-36.0[facility] HospitalV Auto (RBC) [Entitic vol]on 02-79-0177SKS (RBC) [Entitic vol]92.1 fL80.0-100.0[facility] HospitalMonocytes Auto (Bld) [#/Vol]on 05-53-6107Ytxfyczyu (Bld) [#/Vol]0.99 10*3/uL<0.87[facility] HospitalMonocytes/100 WBC Auto (Bld)on 35-79-1088Qbdelnagm/100 WBC (Bld)15.4 %[facility] Neutrophils Auto (Bld) [#/Vol]on 46-90-0135Eejjtejnnmf (Bld) [#/Vol]4.03 10*3/uL 1.45-7.50[facility] HospitalNeutrophils/100 WBC Auto (Bld)on 59-60-8168Vxzikdkfeds/100 WBC (Bld)62.8 %[facility] HospitalNo Panel Informationon 70-85-8381Pxrnjmcvx GFR (CKD-EPI)49 mL/min/1.73m???>=60 [facility] HospitalComment on above:Estimated Glomerular Filtration Rate (eGFR) is calculated using the 2021 CKD-EPI creatinine equation. This equation utilizes serum creatinine, sex, and age as parameters. The creatinine assay has traceable calibration to isotope dilution-mass spectrometry. Refer to KDIGO guidelines for clinical interpretation. In patients with unstable renal function, e.g. those with acute kidney injury, the eGFRmay not accurately reflect actual GFR.Immature Granulocyte # (Auto)<0.03 k/uL<0.10 [facility] HospitalNucleated RBC Auto (Bld) [#/Vol]on 02-04-2024 Nucleated RBC (Bld) [#/Vol]10*3/uL<0.01[facility] Nucleated erythrocytes [Presence] in Blood by Automated counton 02-04-2024 Nucleated RBC Auto Ql (Bld)0.0 /100{WBC}[facility] Platelet mean volume Auto (Bld) [Entitic vol]on 25-89-1533Jwzvwjoa mean volume (Bld) [Entitic vol]8.9 fL9.0-12.7FMcKitrick HospitalPlatelets Auto (Bld) [#/Vol]on 96-75-8121Dgkwffyqt (Bld) [#/Vol]181 10*3/dR843-218MnjyxpfywMartin Memorial HospitalProtein [Mass/volume] in Serum or Plasmaon 02-04-2024 Protein [Mass/Vol]6.9 g/dL6.3-8.0[facility] HospitalRBC Auto (Bld) [#/Vol]on 12-05-4531ITM (Bld) [#/Vol]4.32 10*6/uL4.20-6.00[facility] Springfielderum or plasma anion gap determinationon 81-97-7148Hzypx gap [Moles/Vol]10 mmol/L9-18FMcKitrick HospitalLaboratory - Chemistry and Chemistry - challengeon 10-52-6621Pplbbukmw Ql (U)NegativeMartin Memorial HospitalGlucose (U) [Mass/Vol]NegativeMartin [facility] Hospital Ketones Ql (U)5FMcKitrick HospitalpH (U)5.0 [pH][facility] Springfieldpecific gravity (U) [Rel density]1.010[facility] HospitalUrobilinogen (U) [Mass/Vol]0.2 mg/dLMartin Memorial Hospital Laboratory - Specimen informationon 93-84-0528Lhisnvjlzy (U)cloudyMartin Memorial HospitalColor (U)darkyellowMartin Memorial Hospital Laboratory - Urinalysison 19-14-4041Vtncbslme esterase Test strip Ql (U)++ [facility] HospitalNitrite Ql (U)PositiveMartin Memorial HospitalProtein Ql (U)+[facility] HospitalNo Panel Informationon 95-58-1653Saxdd Occult Blood+[facility] Basophils Auto (Bld) [#/Vol]on 42-16-2342Oadepvtca (Bld) [#/Vol]0.03 10*3/uL <0.11[facility] HospitalBasophils/100 WBC Auto (Bld)on 01-28-2024 Basophils/100 WBC (Bld)0.4 %[facility] HospitalBlood manual differential comment interpretation narrativeon 27-28-8823Arzbxf differential comment Joshua (Bld) [Interp]AutoMartin Memorial HospitalComprehensive metabolic 2000 panelon 47-72-8323Zzfulmi [Mass/Vol]4.1 g/dL3.9 - 4.9 g/dL [place] [facility] ClinicALP [Catalytic activity/Vol]70 U/L38 - 113 U/LCleveland [facility] ALT [Catalytic activity/Vol]25 U/L10 - 54 U/LCleveland ClinicAnion gap [Moles/Vol]7 mmol/LLow9 - 18 mmol/LCleveland ClinicAST [Catalytic activity/Vol] 21 U/L14 - 40 U/LC[facility] ClinicBilirubin [Mass/Vol]0.3 mg/dL0.2 - 1.3 mg/dL [facility] HospitalCalcium [Mass/Vol]9.4 mg/dL8.5 - 10.2 mg/dLCherrington Hospital Chloride [Moles/Vol]106 mmol/LHigh97 - 105 mmol/LCleveland ClinicCO2 [Moles/Vol] 26 mmol/L22 - 30 mmol/LC[facility] ClinicCreatinine [Mass/Vol]1.06 mg/dL0.73 - 1.22 mg/dLCherrington HospitalEstimated Glomerular Filtration Rate68 mL/min/1.73m >=60 mL/min/1.73mCleveland ClinicGlucose [Mass/Vol]85 mg/dL74 - 99 mg/dL [facility] HospitalPotassium [Moles/Vol]4.7 mmol/L3.7 - 5.1 mmol/LC[facility] Protein [Mass/Vol]6.8 g/dL6.3 - 8.0 g/dLConception Junction ClinicSodium [Moles/Vol]139 mmol/L136 - 144 mmol/LCleveland ClinicUrea nitrogen [Mass/Vol]23 mg/dL9 - 24 mg/dLCherrington HospitalEosinophils/100 WBC Auto (Bld)on 36-82-9954Dqqvoaysvvs/100 WBC (Bld)8.8 %[facility] HospitalErythrocyte distribution width Auto (RBC) [Ratio]on 46-07-5079Qbbdlasttbn distribution width (RBC) [Ratio]13.2 %11.5-15.0[facility] HospitalHematocrit Auto (Bld) [Volume fraction]on 77-82-3705Bcobqorocp (Bld) [Volume fraction]37.3 %39.0-51.0[facility] HospitalHemoglobin [Mass/volume] in Bloodon 34-53-8933Chtkwbgahg (Bld) [Mass/Vol]12.1 g/dL13.0-17.0[facility] HospitalLaboratory - Chemistry and Chemistry - challengeon 99-79-0774Eotzlqkga [Mass/Vol]2.4 mg/dL High1.7 - 2.3 mg/dLConception Junction ClinicAlbumin [Mass/Vol]4.1 g/dL3.9-4.9[facility] HospitalALP [Catalytic activity/Vol]70 U/G76-872CypihoazuMartin Memorial HospitalALT [Catalytic activity/Vol]25 U/A00-81DvpgmoomnMartin Memorial HospitalAST [Catalytic activity/Vol]21 U/N38-88IehwgixtqMartin Memorial HospitalBilirubin [Mass/Vol]0.3 mg/dL0.2-1.3FMcKitrick Hospital Calcium [Mass/Vol]9.4 mg/dL8.5-10.2FMcKitrick HospitalChloride [Moles/Vol]106 mmol/E10-576HhrsempnsMartin Memorial HospitalCO2 [Moles/Vol]26 mmol/N49-15KvvffgtrmMartin Memorial HospitalCreatinine [Mass/Vol]1.06 mg/dL 0.73-1.22[facility] HospitalGlucose [Mass/Vol]85 mg/dL74-99 [facility] HospitalComment on above:The [place] Diabetes Association (ADA) provides guidance for cutoff [...] hyperglycemia or hyperglycemic crisis, random plasma glucose resultsgreater than or equal to 200 mg/dL meet the criteria for diagnosis of diabetes.Reference: Standard[employer] Medical [employer] in Diabetes 2016, [place] [employer]. Diabetes Care. 2016.39(Suppl 1). Potassium [Moles/Vol]4.7 mmol/L3.7-5.1FUniversity Hospitals Elyria Medical Centerodium [Moles/Vol]139 mmol/D516-582VlzaxliikMartin Memorial HospitalUrea nitrogen [Mass/Vol]23 mg/dL9-24[facility] HospitalMagnesium [Mass/Vol]2.4 mg/dL1.7-2.3FMcKitrick HospitalLaboratory - Hematology and Cell countson 08-66-3091Ipnavrsziwg (Bld) [#/Vol]0.60 10*3/uL<0.46[facility] HospitalImmature granulocytes (Bld) [#/Vol]0.03 10*3/uL<0.10[facility] HospitalImdeture granulocytes/100 WBC (Bld)0.4 %[facility] HospitalLeukocytes [#/volume] corrected for nucleated erythrocytes in Blood by Automated counon 60-87-0186ROO corrected for nucl RBC Auto (Bld) [#/Vol]6.84 k/uL3.70-11.00[facility] Lymphocytes Auto (Bld) [#/Vol]on 94-98-0676Xmnhdnozqxz (Bld) [#/Vol]1.11 10*3/uL 1.00-4.00[facility] HospitalLymphocytes/100 WBC Auto (Bld)on 32-25-9236Kitgkcgxhxp/100 WBC (Bld)16.2 %[facility] HospitalH Auto (RBC) [Entitic mass]on 56-52-2743FSI (RBC) [Entitic mass]30.2 pg26.0-34.0 [facility] HospitalMCHC Auto (RBC) [Mass/Vol]on 63-33-6688FJDE (RBC) [Mass/Vol]32.4 g/dL30.5-36.0[facility] HospitalV Auto (RBC) [Entitic vol]on 41-28-8266NAV (RBC) [Entitic vol]93.0 fL80.0-100.0 [facility] HospitalMonocytes Auto (Bld) [#/Vol]on 01-28-2024 Monocytes (Bld) [#/Vol]1.02 10*3/uL<0.87[facility] Monocytes/100 WBC Auto (Bld)on 08-53-2892Docxqhfqi/100 WBC (Bld)14.9 %[facility] HospitalNeutrophils Auto (Bld) [#/Vol]on 47-32-9547Noxihkoojlk (Bld) [#/Vol]4.05 10*3/uL1.45-7.50[facility] Neutrophils/100 WBC Auto (Bld)on 46-72-5832Trdrlywmcll/100 WBC (Bld)59.3 % [facility] HospitalNo Panel Informationon 91-58-8062Qbyajcpyt GFR (CKD-EPI)68 mL/min/1.73m???>=60[facility] HospitalComment on above:Estimated Glomerular Filtration Rate (eGFR) is calculated using the 2020 CKD-EPI creatinine equation. This equation utilizes serum creatinine, sex, and age as parameters. The creatinine assay has traceable calibration to isotope dilution-mass spectrometry. Refer to KDIGO guidelines for clinical inte rpretation. In patients with unstable renal function, e.g. those with acute kidney injury, the eGFRmay not accurately reflect actual GFR.Nucleated RBC Auto (Bld) [#/Vol]on 08-63-5551Ddasjdvtv RBC (Bld) [#/Vol]10*3/uL<0.01[facility] HospitalNucleated erythrocytes [Presence] in Blood by Automated counton 91-69-6739Jpodxaxja RBC Auto Ql (Bld)0.0 /100{WBC}[facility] HospitalPlatelet mean volume Auto (Bld) [Entitic vol]on 79-15-5630Nhnkepqp mean volume (Bld) [Entitic vol]8.5 fL9.0-12.7FMcKitrick Hospital Platelets Auto (Bld) [#/Vol]on 81-64-3228Zcyzeascn (Bld) [#/Vol]172 10*3/uL 150-400[facility] HospitalProtein [Mass/volume] in Serum or Plasma on 88-25-6202Hamwfkf [Mass/Vol]6.8 g/dL6.3-8.0[facility] RBC Auto (Bld) [#/Vol]on 52-64-1055EEC (Bld) [#/Vol]4.01 10*6/uL4.20-6.00 [facility] Springfielderum or plasma anion gap determinationon 14-97-6062Cimmb gap [Moles/Vol]7 mmol/L9-18FMcKitrick Hospital Basophils Auto (Bld) [#/Vol]on 88-02-1709Gvtykxdyu (Bld) [#/Vol]0.05 10*3/uL <0.11[facility] HospitalBasophils/100 WBC Auto (Bld)on 01-20-2024 Basophils/100 WBC (Bld)0.8 %[facility] HospitalBlood manual differential comment interpretation narrativeon 47-37-6071Qlpfgg differential comment Joshua (Bld) [Interp]AutoMartin Memorial HospitalEosinophils/100 WBC Auto (Bld)on 75-54-0937Svprgpaqhsc/100 WBC (Bld)10.1 %[facility] HospitalErythrocyte distribution width Auto (RBC) [Ratio]on 01-20-2024 Erythrocyte distribution width (RBC) [Ratio]13.2 %11.5-15.0[facility] HospitalHematocrit Auto (Bld) [Volume fraction]on 09-27-8428Amutavsfpy (Bld) [Volume fraction]39.2 %39.0-51.0[facility] Hemoglobin [Mass/volume] in Bloodon 33-64-4131Tbxkcoiwzt (Bld) [Mass/Vol]12.4 g/dL13.0-17.0[facility] HospitalLaboratory - Chemistry and Chemistry - challengeon 62-30-0967Xxnvbgs [Mass/Vol]3.8 g/dL3.9-4.9[facility] HospitalALP [Catalytic activity/Vol]71 U/E58-369TkuttqvpkMartin Memorial HospitalALT [Catalytic activity/Vol]15 U/R15-82SseutbelrMartin Memorial HospitalAST [Catalytic activity/Vol]13 U/C76-00TtzmfniubMartin Memorial HospitalBilirubin [Mass/Vol]0.3 mg/dL0.2-1.3FMcKitrick Hospital Calcium [Mass/Vol]9.6 mg/dL8.5-10.2FMcKitrick HospitalChloride [Moles/Vol]109 mmol/Y82-282QifvyakdfMartin Memorial HospitalCO2 [Moles/Vol]26 mmol/E14-67VswrsqbufMartin Memorial HospitalCreatinine [Mass/Vol]1.08 mg/dL 0.73-1.22[facility] HospitalGlucose [Mass/Vol]79 mg/dL74-99 [facility] HospitalComment on above:The [place] Diabetes Association (ADA) provides guidance for cutoff [...] hyperglycemia or hyperglycemic crisis, random plasma glucose resultsgreater than or equal to 200 mg/dL meet the criteria for diagnosis of diabetes.Reference: Standardsof Medical Care in Diabetes 2016, [place] [employer]. Diabetes Care. 2016.39(Suppl 1). Potassium [Moles/Vol]4.5 mmol/L3.7-5.1FUniversity Hospitals Elyria Medical Centerodium [Moles/Vol]145 mmol/M132-867AxjrbptrsMartin Memorial HospitalUrea nitrogen [Mass/Vol]27 mg/dL9-24[facility] HospitalLaboratory - Hematology and Cell countson 70-79-3770Qefernjrqwj (Bld) [#/Vol]0.61 10*3/uL<0.46[facility] HospitalImmature granulocytes/100 WBC (Bld)0.3 %[facility] HospitalLeukocytes [#/volume] corrected for nucleated erythrocytes in Blood by Automated counon 15-90-9200UKH corrected for nucl RBC Auto (Bld) [#/Vol]6.05 k/uL3.70-11.00[facility] Lymphocytes Auto (Bld) [#/Vol]on 42-44-9286Mhtrlmoxpxa (Bld) [#/Vol]1.28 10*3/uL 1.00-4.00[facility] HospitalLymphocytes/100 WBC Auto (Bld)on 30-21-7747Vyzkfbbavnx/100 WBC (Bld)21.2 %[facility] HospitalMCH Auto (RBC) [Entitic mass]on 23-85-3782UGR (RBC) [Entitic mass]29.6 pg26.0-34.0 [facility] HospitalMCHC Auto (RBC) [Mass/Vol]on 99-45-1256XPGW (RBC) [Mass/Vol]31.6 g/dL30.5-36.0[facility] HospitalMCV Auto (RBC) [Entitic vol]on 92-41-5758YWC (RBC) [Entitic vol]93.6 fL80.0-100.0 [facility] HospitalMonocytes Auto (Bld) [#/Vol]on 01-20-2024 Monocytes (Bld) [#/Vol]0.87 10*3/uL<0.87[facility] Monocytes/100 WBC Auto (Bld)on 81-42-0713Xxfvlrrkh/100 WBC (Bld)14.4 %[facility] HospitalNeutrophils Auto (Bld) [#/Vol]on 02-13-1045Ufenmzobvuo (Bld) [#/Vol]3.22 10*3/uL1.45-7.50[facility] Neutrophils/100 WBC Auto (Bld)on 26-55-2654Irtmzawmnpi/100 WBC (Bld)53.2 % [facility] HospitalNo Panel Informationon 55-79-2353Bhpyatinf GFR (CKD-EPI)66 mL/min/1.73m???>=60[facility] HospitalComment on above:Estimated Glomerular Filtration Rate (eGFR) is calculated using the 2020 CKD-EPI creatinine equation. This equation utilizes serum creatinine, sex, and age as parameters. The creatinine assay has traceable calibration to isotope dilution-mass spectrometry. Refer to KDIGO guidelines for clinical inte rpretation. In patients with unstable renal function, e.g. those with acute kidney injury, the eGFRmay not accurately reflect actual GFR.Immature Granulocyte # (Auto)<0.03 k/uL<0.10[facility] HospitalNucleated RBC Auto (Bld) [#/Vol]on 98-34-1835Jngmhnaim RBC (Bld) [#/Vol]10*3/uL<0.01 [facility] HospitalNucleated erythrocytes [Presence] in Blood by Automated counton 02-87-1004Nzmzoysou RBC Auto Ql (Bld)0.0 /100{WBC}[facility] HospitalPlatelet mean volume Auto (Bld) [Entitic vol]on 05-04-0793Mgxhdedm mean volume (Bld) [Entitic vol]8.7 fL9.0-12.7FMcKitrick HospitalPlatelets Auto (Bld) [#/Vol]on 69-60-4100Xnyhxocki (Bld) [#/Vol]165 10*3/oD146-108YngtjtlqwMartin Memorial HospitalProtein [Mass/volume] in Serum or Plasmaon 75-72-9660Mafiusf [Mass/Vol]6.4 g/dL6.3-8.0[facility] HospitalRBC Auto (Bld) [#/Vol]on 11-86-4951LDO (Bld) [#/Vol]4.19 10*6/uL4.20-6.00[facility] Springfielderum or plasma anion gap determinationon 29-08-8673Jjrcg gap [Moles/Vol]10 mmol/L9-18FMcKitrick HospitalCT Chest WO contraston 81-51-7751CIRZJWWTLK: 1. Subcentimeter noncalcified and partially calcified nodular [...] any questions regarding this interpretation, please call [phone]. If you are unable to reach us at the number above, please feel free to contact [facility] Centeriology at [phone].DIVISION OF RADIOLOGY* * *Final Report* * * DATE OF EXAM: Jan 08 2024 11:14AM [facility], [place] 0541 - CT CHEST WO IVCON [...] are noted in the spleen and liver. Window Trimmer Apprentice (topogram) images: No additional findings. DIVISION OF RADIOLOGYProvider, [facility] [place] - 01/08/2024 * * *Final Report* * * DATE OF EXAM: Jan 08 2024 11:14AM [facility] [place] 05[address] - CT CHEST WO IVCON [...] are noted in the spleen and liver. Window Trimmer Apprentice (topogram) images: No additional findings. IMPRESSION IMPRESSION: [...] any questions regarding this interpretation, please call [phone]. If you are unable to reach us at the number above, please feel free to contact [facility] eRadiology at [phone]. [facility] HospitalRadiology Study observation (narrative)[facility] Chest WO contrastOrdered By: Ccf Provider on 28-62-3572Cwunlaurb ClinicBasophils Auto (Bld) [#/Vol]on 61-72-6643Xagzrrfle (Bld) [#/Vol]0.05 10*3/uL<0.11[facility] HospitalBasophils/100 WBC Auto (Bld)on 50-34-5837Fxvmooytz/100 WBC (Bld)0.7 %[facility] HospitalBlood manual differential comment interpretation narrativeon 26-69-4290Isayiv differential comment Joshua (Bld) [Interp]AutoMartin Memorial HospitalCB W Auto Differential panel (Bld)on 85-98-1167Qcahsrimu (Bld) [#/Vol]0.05 10*3/uL <0.11 k/uLCherrington HospitalBasophils/100 WBC (Bld)0.7 %[facility] Differential cell count method Nom (Bld)AutoCleveland ClinicEosinophils (Bld) [#/Vol]0.49 10*3/uLHigh<0.46 k/uLCherrington HospitalEosinophils/100 WBC (Bld)7.1 % [facility] HospitalErythrocyte distribution width (RBC) [Ratio]12.8 %11.5 - 15.0 % [facility] HospitalHematocrit (Bld) [Volume fraction]37.8 %Low39.0 - 51.0 % [facility] HospitalHemoglobin (Bld) [Mass/Vol]12.3 g/dLLow13.0 - 17.0 g/dLCherrington HospitalImmature granulocytes (Bld) [#/Vol]<0.10 k/uLCherrington HospitalImmature granulocytes/100 WBC (Bld)0.1 %[facility] HospitalLymphocytes (Bld) [#/Vol]1.52 10*3/uL1.00 - 4.00 k/uLCherrington HospitalLymphocytes/100 WBC (Bld)22.0 %[facility] CenterH (RBC) [Entitic mass]29.9 pg26.0 - 34.0 pgClevelAppleton Municipal HospitalHC (RBC) [Mass/Vol]32.5 g/dL30.5 - 36.0 g/dLSalem Regional Medical CenterV (RBC) [Entitic vol]92.0 fL80.0 - 100.0 fLCleveland ClinicMonocytes (Bld) [#/Vol]1.09 10*3/uLHigh<0.87 k/uLCherrington HospitalMonocytes/100 WBC (Bld)15.8 %[facility] HospitalNeutrophils (Bld) [#/Vol]3.76 10*3/uL1.45 - 7.50 k/uLCherrington HospitalNeutrophils/100 WBC (Bld)54.3 %[facility] HospitalNucleated RBC (Bld) [#/Vol]<0.01 k/uLCherrington Hospital Nucleated RBC/100 WBC (Bld) [Ratio]0.0 /100 WBCCherrington HospitalPlatelet mean volume (Bld) [Entitic vol]8.5 fLLow9.0 - 12.7 fLClevelformerly h[facility] ClinicPlatelets (Bld) [#/Vol]205 10*3/uL150 - 400 k/uLCherrington HospitalRBC (Bld) [#/Vol]4.11 10*6/uLLow 4.20 - 6.00 m/uLCherrington HospitalWBC (Bld) [#/Vol]6.92 10*3/uL3.70 - 11.00 k/uL [facility] HospitalComprehensive metabolic 2000 panelon 39-82-7138Ypipdzf [Mass/Vol]3.9 g/dL3.9 - 4.9 g/dLConception Junction ClinicALP [Catalytic activity/Vol]68 U/L38 - 113 U/LCleveland ClinicALT [Catalytic activity/Vol]17 U/L10 - 54 U/L RitchieSt. Charles HospitalAnion gap [Moles/Vol]8 mmol/LLow9 - 18 mmol/LCleveland ClinicAST [Catalytic activity/Vol]14 U/L14 - 40 U/LCleveland ClinicBilirubin [Mass/Vol] 0.2 mg/dL0.2 - 1.3 mg/dLCleglenbeigh hospital ClinicCalcium [Mass/Vol]9.5 mg/dL8.5 - 10.2 mg/dLConception Junction ClinicChloride [Moles/Vol]104 mmol/L97 - 105 mmol/LCleveland ClinicCO2 [Moles/Vol]26 mmol/L22 - 30 mmol/LCleveland ClinicCreatinine [Mass/Vol]1.08 mg/dL0.73 - 1.22 mg/dLCherrington HospitalEstimated Glomerular Filtration Rate66 mL/min/1.73m>=60 mL/min/1.73mCleveland ClinicGlucose [Mass/Vol]100 mg/mVRgxd73 - 99 mg/dLCherrington HospitalPotassium [Moles/Vol]4.3 mmol/L3.7 - 5.1 mmol/LCleveland ClinicProtein [Mass/Vol]6.8 g/dL6.3 - 8.0 g/dL [place] ClinicSodium [Moles/Vol]138 mmol/L136 - 144 mmol/LCleveland [facility] CenterUrea nitrogen [Mass/Vol]21 mg/dL9 - 24 mg/dLCherrington HospitalEosinophils/100 WBC Auto (Bld)on 81-71-3191Kefvvzymxiq/100 WBC (Bld)7.1 %[facility] HospitalErythrocyte distribution width Auto (RBC) [Ratio]on 31-40-3630Sqsmtdlcazl distribution width (RBC) [Ratio]12.8 %11.5-15.0[facility] Hematocrit Auto (Bld) [Volume fraction]on 99-02-4804Fwvbdadjqe (Bld) [Volume fraction]37.8 %39.0-51.0[facility] HospitalHemoglobin [Mass/volume] in Bloodon 90-80-5202Yxghgdnrkn (Bld) [Mass/Vol]12.3 g/dL13.0-17.0 [facility] HospitalLaboratory - Chemistry and Chemistry - challengeon 85-10-3855Nkkeyvf [Mass/Vol]3.9 g/dL3.9-4.9[facility] HospitalALP [Catalytic activity/Vol]68 U/G02-679WbyntivqiMartin Memorial HospitalALT [Catalytic activity/Vol]17 U/U25-42IupqctsccMartin Memorial Hospital AST [Catalytic activity/Vol]14 U/W01-70AhrfiewwgMartin [facility] Hospital Bilirubin [Mass/Vol]0.2 mg/dL0.2-1.3FMcKitrick HospitalCalcium [Mass/Vol]9.5 mg/dL8.5-10.2FMcKitrick HospitalChloride [Moles/Vol] 104 mmol/I21-058RobwlaxklMartin Memorial HospitalCO2 [Moles/Vol]26 mmol/L22-30 [facility] HospitalCreatinine [Mass/Vol]1.08 mg/dL0.73-1.22 [facility] HospitalGlucose [Mass/Vol]100 mg/hP57-64ZeowimkicMartin Memorial HospitalComment on above:The [place] Diabetes Association (ADA) provides guidance for cutoff values for fasting glucose andrandom glucose. The ADA defines fasting as no caloric intake for at least 8 hours. Fasting plasma gl ucose results between 100 to 125 mg/dL indicate increased risk for diabetes (prediabetes).Fasting plasma glucose results greater than or equal to 126 mg/dL meet the criteria for diagnosis of diabetes. In the absence of unequivocal hyperglycemia, results should be confirmed by repeat testing. In a patient with classic symptoms of hyperglycemia or hyperglycemic crisis, random plasma glucose resultsgreater than or equal to 200 mg/dL meet the criteria for diagnosis of diabetes.Reference: Standardsof Medical Care in Diabetes 2016, [place] Diabetes Association. Diabetes Care. 2016.39(Suppl 1).Potassium [Moles/Vol]4.3 mmol/L 3.7-5.1FUniversity Hospitals Elyria Medical Centerodium [Moles/Vol]138 mmol/A511-326 [facility] HospitalUrea nitrogen [Mass/Vol]21 mg/dL9-24[facility] HospitalLaboratory - Hematology and Cell countson 01-03-2024 Eosinophils (Bld) [#/Vol]0.49 10*3/uL<0.46[facility] Immature granulocytes/100 WBC (Bld)0.1 %[facility] Leukocytes [#/volume] corrected for nucleated erythrocytes in Blood by Automated counon 50-30-1958ZVM corrected for nucl RBC Auto (Bld) [#/Vol]6.92 k/uL 3.70-11.00[facility] HospitalLymphocytes Auto (Bld) [#/Vol]on 48-17-4763Caeyenmxmbu (Bld) [#/Vol]1.52 10*3/uL1.00-4.00[facility] HospitalLymphocytes/100 WBC Auto (Bld)on 87-15-4119Lvnaambarpi/100 WBC (Bld)22.0 %[facility] HospitalH Auto (RBC) [Entitic mass]on 55-35-8502NCC (RBC) [Entitic mass]29.9 pg26.0-34.0[facility] HospitalMCHC Auto (RBC) [Mass/Vol]on 29-16-7296CSJK (RBC) [Mass/Vol]32.5 g/dL 30.5-36.0[facility] HospitalMCV Auto (RBC) [Entitic vol]on 15-43-1471TAA (RBC) [Entitic vol]92.0 fL80.0-100.0[facility] HospitalMonocytes Auto (Bld) [#/Vol]on 53-81-9533Noilcebzj (Bld) [#/Vol]1.09 10*3/uL<0.87[facility] HospitalMonocytes/100 WBC Auto (Bld)on 36-98-5397Lvhfujjzq/100 WBC (Bld)15.8 %[facility] Neutrophils Auto (Bld) [#/Vol]on 13-76-8203Tdvdyvihsfq (Bld) [#/Vol]3.76 10*3/uL 1.45-7.50[facility] HospitalNeutrophils/100 WBC Auto (Bld)on 35-54-3034Mnwpghxpgrm/100 WBC (Bld)54.3 %[facility] HospitalNo Panel Informationon 74-61-4610Oxxjakuji GFR (CKD-EPI)66 mL/min/1.73m???>=60 [facility] HospitalComment on above:Estimated Glomerular Filtration Rate (eGFR) is calculated using the 2020 CKD-EPI creatinine equation. This equation utilizes serum creatinine, sex, and age as parameters. The creatinine assay has traceable calibration to isotope dilution-mass spectrometry. Refer to KDIGO guidelines for clinical interpretation. In patients with unstable renal function, e.g. those with acute kidney injury, the eGFRmay not accurately reflect actual GFR.Immature Granulocyte # (Auto)<0.03 k/uL<0.10 [facility] HospitalNucleated RBC Auto (Bld) [#/Vol]on 01-03-2024 Nucleated RBC (Bld) [#/Vol]10*3/uL<0.01[facility] Nucleated erythrocytes [Presence] in Blood by Automated counton 01-03-2024 Nucleated RBC Auto Ql (Bld)0.0 /100{WBC}[facility] Platelet mean volume Auto (Bld) [Entitic vol]on 66-45-9420Xhbgpwnt mean volume (Bld) [Entitic vol]8.5 fL9.0-12.7FMcKitrick HospitalPlatelets Auto (Bld) [#/Vol]on 98-51-1857Poxsgorxi (Bld) [#/Vol]205 10*3/cQ496-572JjbrsuhtvMartin Memorial HospitalProtein [Mass/volume] in Serum or Plasmaon 01-03-2024 Protein [Mass/Vol]6.8 g/dL6.3-8.0[facility] HospitalRBC Auto (Bld) [#/Vol]on 73-06-7867QTG (Bld) [#/Vol]4.11 10*6/uL4.20-6.00[facility] Springfielderum or plasma anion gap determinationon 37-62-3711Vcanm gap [Moles/Vol]8 mmol/L9-18FMcKitrick HospitalEstimated glomerular filtration rate (GFR) non- Americanon 67-35-8566STS/1.73 sq M.predicted among non-blacks MDRD (S/P/Bld) [Vol rate/Area]mL/min/{1.73_m2}>=60[facility] HospitalLaboratory - Chemistry and Chemistry - challengeon 65-27-0336Ehthvsnves [Mass/Vol]1.15 mg/dL0.70-1.30[facility] HospitalGFR/1.73 sq M.predicted MDRD (S/P/Bld) [Vol rate/Area]mL/min/{1.73_m2}>=60 [facility] HospitalUrea nitrogen [Mass/Vol]24.0 mg/dL7.0-18.0 [facility] HospitalAmorphous urine sedimenton 44-92-3373Hjbyposfd sediment LM Ql (Urine sed)[facility] HospitalAutomated epithelial cells count in urine sediment (number/area)on 01-95-3978Wcxezmgkjn cells Auto (Urine sed) [#/Area]NONE SEEN #/LPFNONE/RAREMartin Memorial HospitalAutomated leukocytes count in urine sediment (number/area)on 79-08-5142GTS Auto (Urine sed) [#/Area]50-75 #/HPF0-2FMcKitrick HospitalAutomated urine specific gravity by refractometryon 17-09-3460Qasdhjvn gravity Refractometry automated (U) [Rel density]>=1.0301.005-1.025Martin [facility] HospitalBilirubin Auto test strip (U) [Mass/Vol]on 12-14-2023 Bilirubin (U) [Mass/Vol]NegativeNEGATIVEMartin Memorial HospitalCast typing in urine sediment by light microscopyon 92-51-0757Eegrm LM Nom (Urine sed)NONE SEEN #/LPFNONE [facility] HospitalColor Auto (U)on 83-55-2795Udqdx (U)BROWNYELLOWMartin Memorial HospitalKetones Auto test strip (U) [Mass/Vol]on 14-27-5881Ogkopdu (U) [Mass/Vol]NegativeNEGATIVE [facility] HospitalLaboratory - Microbiology and Antimicrobial susceptibilityOrdered By: Lesa Estrella on 62-31-8808Petzieax identified Cx Nom (U)[facility] HospitalMucus LM Ql (Urine sed)on 88-98-6839Ociku Ql (Urine sed)SMALLNONE St. [facility] HospitalNo Panel Information on 63-91-9218Ssuaj Culture ReflexedMercy Memorial HospitalUrine Microscopic ReviewYEParkwood HospitalProtein Auto test strip (U) [Mass/Vol]on 79-42-7902Mixhvwi (U) [Mass/Vol]100 mg/dLNEG/TRACEKettering Health Springfieldpecific gravity Auto test strip (U) [Rel density]on 50-72-2333Zmucwhzh gravity (U) [Rel density]CLEARCLEARFMcKitrick HospitalUrine bacteria detection by automated methodon 92-23-7871Rxdvbgxm Auto Ql (U)MODERATE #/HPFNONE St. [facility] HospitalUrine glucose measurement by test strip (mass/volume)on 80-36-6043Knebflj Test strip (U) [Mass/Vol]NegativeNEGProMedica Bay Park HospitalUrine hemoglobin detection by automated test stripon 56-00-2088Terygxoezl Auto test strip Ql (U) LARGENEGProMedica Bay Park HospitalUrine nitrite detection by automated test stripon 73-40-5345Bzgpvbb Auto test strip Ql (U)SMALLNEGATIVE [facility] HospitalNitrite Auto test strip Ql (U)PositiveNEGATIVE [facility] HospitalUrine sediment crystal identification by light microscopyon 75-18-3195Xhvjmaty LM Nom (Urine sed)Seen #/HPFNone [facility] HospitalUrine sediment leukocyte count by microscopy (number/high power field)on 35-13-7014UXH LM.HPF (Urine sed) [#/Area]5-10 #/HPFNONE Berger HospitalUrobilinogen Auto test strip (U) [Mass/Vol]on 99-80-9167Xhegvndepyuq Qn (U)0.2 {Dae'U}/dL0.2-1.0[facility] HospitalpH Auto test strip (U)on 40-17-8468xQ (U)6.0 [pH]5.0-9.0[facility] HospitalCreatinine [Mass/volume] in Serum or PlasmaOrdered By: Imad Asaad on 19-22-8387Evdfvumhyu [Mass/Vol]1.05 mg/dL0.70-1.30[facility] HospitalNo Panel InformationOrdered By: Zofia Gates on 10-23-2023 Estimated GFR (CKD-EPI)> 60.0 mL/MinMartin Memorial HospitalPharmacy Creatinine Clearance (ChemN/AFMcKitrick HospitalUrea nitrogen [Mass/volume] in Serum or PlasmaOrdered By: Zofia Gates on 03-03-8495Xiyw nitrogen [Mass/Vol]19 mg/dL7-25Martin [facility] HospitalLACTATE, BLOOD Ordered By: Laura Dorsey on 58-44-6141Rjspalpxhwjvjw and review of laboratory resultsNoSumma Health Wadsworth - Rittman Medical CenterLactate [Moles/Vol]1.6 mmol/L0.5 - 1.6 mmol/LOSU [facility] CenterOSSycamore Medical CenterLT BLUE TOP TUBEon 48-55-5805ZZC [facility] CenterCBC AND ELECTRONIC DIFFon 13-52-8722Qbxxfslap (Bld) [#/Vol]K/uL0.00 - 0.09 K/uLOSSycamore Medical CenterBasophils/100 WBC (Bld)0.2 %[facility] HospitalDifferential cell count method Nom (Bld) Electronic DifferentialOSSycamore Medical CenterEosinophils (Bld) [#/Vol]0.04 10*3/uL0.00 - 0.48 K/uLOSSycamore Medical CenterEosinophils/100 WBC (Bld)0.4 % [facility] HospitalErythrocyte distribution width (RBC) [Ratio]13.9 %10.9 - 14.3 %[facility] HospitalHematocrit (Bld) [Volume fraction]44.9 %39.6 - 48.8 %[facility] HospitalHemoglobin (Bld) [Mass/Vol]14.4 g/dL13.4 - 16.8 g/dLGreene Memorial HospitalImmature granulocytes (Bld) [#/Vol]K/uLNINF - 0.07 K/uLOSU [facility] CenterImmature granulocytes/100 WBC (Bld)0.3 %[facility] HospitalInterpretation and review of laboratory resultsAbnormParkview Health Bryan HospitalLymphocytes (Bld) [#/Vol]0.88 10*3/uL0.83 - 3.57 K/[facility] HospitalLymphocytes/100 WBC (Bld)9.4 %[facility] HospitalH (RBC) [Entitic mass]29.7 pg26.1 - 33.3 pgOSSycamore Medical CenterMCHC (RBC) [Mass/Vol]32.1 g/dL31.9 - 36.5 g/dLGreene Memorial HospitalMCV (RBC) [Entitic vol]92.6 fL79.0 - 94.5 [facility] HospitalMonocytes (Bld) [#/Vol]1.08 10*3/uLHigh0.24 - 0.93 K/[facility] HospitalMonocytes/100 WBC (Bld)11.5 %[facility] HospitalNeutrophils (Bld) [#/Vol]7.35 10*3/uLHigh1.57 - 6.19 /[facility] HospitalNucleated RBC/100 WBC (Bld) [Ratio]0.0 %[facility] HospitalPlatelet mean volume (Bld) [Entitic vol]8.8 fL8.7 - 12.3 fL [facility] HospitalPlatelets (Bld) [#/Vol]206 10*3/uL146 - 337 K/[facility] HospitalRBC (Bld) [#/Vol]4.85 10*6/[facility] Segmented neutrophils/100 WBC (Bld)78.2 %[facility] HospitalWBC (Bld) [#/Vol]9.40 10*3/uL3.73 - 10.10 /[facility] HospitalCHEM 6 (LYTES, BUN CREA)on 95-64-9795Nqoxv gap [Moles/Vol]11 mmol/L7 - 17 mmol/[facility] HospitalChloride [Moles/Vol]104 mmol/L98 - 108 mmol/[facility] HospitalCO2 [Moles/Vol]26 mmol/L21 - 31 mmol/[facility] HospitalCreatinine [Mass/Vol]0.97 mg/dL0.70 - 1.30 mg/dLGreene Memorial Hospital eGFR, CKD-EPI, Male76- PINFOOhioHealth Mansfield HospitalComment on above:Reported eGFR is based on the CKD-EPI 2020 equation using creatinine, age, and sex. Potassium [Moles/Vol]4.0 mmol/L3.5 - 5.0 mmol/[facility] Centerodium [Moles/Vol]137 mmol/L135 - 145 mmol/[facility] HospitalUrea nitrogen [Mass/Vol]23 mg/dL7 - 25 mg/dLGreene Memorial HospitalUrea nitrogen/Creatinine [Mass ratio]24 mg/mgOSSycamore Medical CenterGLUCOSEon 48-07-6124Vwqfxqb [Mass/Vol]123 mg/fAFjxb14 - 99 mg/dLGreene Memorial HospitalHEPATIC FUNCTION PANELon 76-40-3968Rpmkyev [Mass/Vol]4.4 g/dL3.5 - 5.0 g/dLGreene Memorial HospitalALP [Catalytic activity/Vol]57 U/L32 - 126 U/[facility] HospitalALT [Catalytic activity/Vol]8 U/LLow10 - 52 U/[facility] HospitalAST [Catalytic activity/Vol]15 U/L10 - 39 U/[facility] HospitalBilirubin [Mass/Vol]0.7 mg/dLNINF - 1.5 mg/dLGreene Memorial HospitalBilirubin.direct [Mass/Vol]0.2 mg/dLNINF - 0.3 mg/dLGreene Memorial HospitalProtein [Mass/Vol] 7.3 g/dL6.4 - 8.3 g/dLGreene Memorial HospitalLIPASEon 53-51-2814Mouvjwkhfdmbsx and review of laboratory resultsNoalOOhioHealth Mansfield HospitalLipase [Catalytic activity/Vol]12 U/L11 - 82 U/[facility] HospitalNo Panel Informationon 68-02-3015Yqchtjlxchwgle and review of laboratory resultsAbnormal [facility] CenterOSSycamore Medical CenterEchocardiogramon 06-25-2023 EchocardiographyNortQuorum Health [address], [address], [place] [address] TRANSTHORACIC ECHOCARDIOGRAM REPORT Patient Name: KENNEDY KONG Reading Physician: [id number] Hannah Abraham MD Study Date: 06/25/2023 Referring GEORGE MORGAN Physician: MRN/PID: [id number] PCP: Lesa Estrella Accession/Order#: [id number] [facility] Location: Date of : 1935 Fellow: Gender: M Nurse: Admit Date: Take Up Operator: Flores Love RDCS, RVT Height: 177.80 cm CC Report to: Weight: 83.92 kg Study Type: Echocardiogram BSA: 2.02 m2 Blood Pressure: 110 /64 mmHg Diagnosis/ICD: 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 There is no indication of pulmonic valveregurgitation. Pericardium: There is no pericardial effusion noted. [...] mmHg PIEDV: 1.64 m/s PADP: 13.8 mmHg [id number] Hannah Abraham MD Electronically signed on 06/25/2023 at 2:13:32 PM Final [facility] HospitalOffice Visit (Cardiology)on 31-54-3099Xvrkhw-up visitDiagnoses/Problems Assessed Myocardial infarction (410.90) (I21.9) Status post [...] Aminotransferase, Serum; Status:Active - Retrospective Authorization; Requested for:04Nov2023; AST; Status:Active - Retrospective Authorization; Requested for:04Nov2023; Complete Blood Count; Status:Active - Retrospective Authorization; Requested for:[id number]; Echocardiogram; Status:Hold For - Scheduling,Retrospective Authorization; Requested for:[id number]; Lipid Panel; Status:Active - Retrospective Authorization; Requested for:[id number]; SocHx: Never a smoker Tobacco Use Screening; Status:Complete; Done: [id number] Patient Instructions Please bring all medicines, vitamins, [...] gentleman who returns following recent non-ST elevation MA due to occluded obtuse marginal branch with primary revascularization with drug-eluting stent and is doing well. He has mild LV dysfunction, No significant coronary disease, ejection fraction of 45%. 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 Vitals Vital Signs Recorded: [id number] 11:57AM Heart Rate60, L Radial Bimkrsfn987, LUE, Sitting Aqlwnzxet78, LUE, Sitting Height5 ft 10 in Jnijoh230 lb BMI Ftlqqyeyix53.54 kg/m2 BSA Calculated2.02 Tobacco Useb) No PHQ-2 #1. Over the last 2 weeks have you felt down, depressed or hopeless? (If yes, answer PHQ-9 below)No PHQ-2 #2. Over the last 2 weeks have you felt little interest or pleasure in doing things? (If yes,answer PHQ-9 below)No Falls Screening (Age 18+)a) No [...] DO; May 02 2023 12:49PM EST (Author) NormalUH TouchworksTobacco Screening.on 87-57-5881Ubrcr depression screening assessmentNo-[facility] [employer] DO Work Phone: Fall risk assessmenta) No falls within the last year -[facility] [employer] 250 DO Work Phone: Tobacco use status CPHSb) [facility]MO[facility] [employer] 250 DO Work Phone: Basophils Auto (Bld) [#/Vol]Ordered By: Ko Morgan on 05-77-0953Hzeowyjeh (Bld) [#/Vol]0.1 10*3/uL0.0-0.2FMcKitrick HospitalBasophils/100 WBC Auto (Bld)Ordered By: Ko Morgan on 04-23-2023 Basophils/100 WBC (Bld)0.7 %.[facility] HospitalCalcium [Mass/volume] in Serum or PlasmaOrdered By: Ko Morgan on 18-51-0873Zfdygcz [Mass/Vol]8.7 mg/dL8.6-10.3FMcKitrick HospitalCarbon dioxide, total [Moles/volume] in Serum or PlasmaOrdered By: Ko Morgan on 02-76-3443EO3 [Moles/Vol]25.0 mmol/L21.0-31.0[facility] HospitalChloride [Moles/volume] in Serum or PlasmaOrdered By: Ko Morgan on 17-09-6621Hkhupnjn [Moles/Vol]106 mmol/V15-870PgbaxlvuaMartin Memorial HospitalCholesterol [Mass/volume] in Serum or PlasmaOrdered By: Ko Morgan on 36-87-8240Slrensjgtay [Mass/Vol]148 mg/nS614-202ZwohxgyaxMartin Memorial HospitalComment on above:Chol less than 200 mg/dl low riskChol 201-239 mg/dl borderline riskChol 240 mg/dl and greater high riskCholesterol in LDL Calc [Mass/Vol]Ordered By: Ko Morgan on 75-31-8314Mmxuarygwsn in LDL [Mass/Vol]73 mg/dL0-100Martin [facility] HospitalComment on above:LDL ATP III CLASSIFICATIONLDL less than 100 mg/dL OptimalLDL 100-129 mg/dL Near or above ujkwlsjTZM708-717 mg/dL Borderline highLDL 160-189 mg/dL HighLDL greater than 189 mg/dL Very highCholesterol in VLDL Calc [Mass/Vol]Ordered By: Ko Morgan on 42-47-8932Wcuhpzvoxkr in VLDL [Mass/Vol]19 mg/dLMartin Memorial HospitalCreatinine [Mass/volume] in Serum or PlasmaOrdered By: Ko Morgan on 44-32-1988Btkzoplwni [Mass/Vol]0.99 mg/dL0.70-1.30[facility] HospitalEosinophils Auto (Bld) [#/Vol] Ordered By: Ko Morgan on 64-99-0061Ucfyfvhcmmv (Bld) [#/Vol]0.1 10*3/uL0.0-0.45 [facility] HospitalEosinophils/100 WBC Auto (Bld)Ordered By: Ko Morgan on 18-02-6658Rziobnclifp/100 WBC (Bld)1.5 %.[facility] Memorial HospitalErythrocyte distribution width Auto (RBC) [Ratio]Ordered By: Ko Morgan on 85-34-4910Rfnqtqnbsfe distribution width (RBC) [Ratio]13.6 %12.0-14.8[facility] HospitalGlucose [Mass/volume] in Serum or PlasmaOrdered By: Ko Morgan on 02-48-2977Naqbovy [Mass/Vol]110 mg/vI57-044QfycqqpxdMartin Memorial HospitalComment on above:ADA recommended reference rangeRandom Glucose Reference Range is dependent on time and content of last meal. Glucose of more than 200 mg/dL in a nonstressed, ambulatory subject supports the diagnosisof Diabetes Mellitus.Hematocrit Auto (Bld) [Volume fraction]Ordered By: Ko Morgan on 06-60-1267Boktdqsspa (Bld) [Volume fraction]40.6 %38.8-50.0[facility] HospitalHemoglobin [Mass/volume] in BloodOrdered By: Ko Morgan on 16-38-5017Butekusoqd (Bld) [Mass/Vol]13.4 g/dL13.0-17.0[facility] HospitalLeukocytes [#/volume] corrected for nucleated erythrocytes in Blood by Automated counOrdered By: Ko Morgan on 47-60-6381PWM corrected for nucl RBC Auto (Bld) [#/Vol]8.1 10*3/uL4.1-10.5FMcKitrick Hospital Lymphocytes Auto (Bld) [#/Vol]Ordered By: Ko Morgan on 20-69-4849Jkwcxgvbtwg (Bld) [#/Vol]0.9 10*3/uL1.00-4.8Martin [facility] HospitalLymphocytes/100 WBC Auto (Bld)Ordered By: Ko Morgan on 84-60-4961Ebzhxkfqhzm/100 WBC (Bld)10.5 %.[facility] HospitalMCH Auto (RBC) [Entitic mass]Ordered By: Ko Morgan on 80-92-1687UPB (RBC) [Entitic mass]29.7 pg27.5-35.2FMcKitrick HospitalMCHC Auto (RBC) [Mass/Vol]Ordered By: Ko Morgan on 21-05-9935XOQV (RBC) [Mass/Vol]33.1 g/dL32.5-35.6FMcKitrick HospitalMCV Auto (RBC) [Entitic vol]Ordered By: Ko Morgan on 33-37-9244JSC (RBC) [Entitic vol] 89.8 fL83.5-101Martin [facility] HospitalMonocytes Auto (Bld) [#/Vol] Ordered By: Ko Morgan on 25-98-7210Rlgzyusgy (Bld) [#/Vol]1.1 10*3/uL0.0-0.8 [facility] HospitalMonocytes/100 WBC Auto (Bld)Ordered By: Ko Morgan on 26-62-3742Wrzzkrlxz/100 WBC (Bld)14.1 %.[facility] HospitalNeutrophils Auto (Bld) [#/Vol]Ordered By: Ko Morgan on 04-23-2023 Neutrophils (Bld) [#/Vol]5.9 10*3/uL1.8-7.7FMcKitrick Hospital Neutrophils/100 WBC Auto (Bld)Ordered By: Ko Morgan on 14-04-2602Yowvfqjecyp/100 WBC (Bld)73.2 %.[facility] HospitalNo Panel InformationOrdered By: Ko Morgan on 09-26-0039Aiqirtskt GFR (CKD-EPI)> 60.0 mL/MinMartin Memorial HospitalPharmacy Creatinine Clearance (Chem55.30Martin [facility] HospitalNucleated erythrocytes [Presence] in Blood by Automated countOrdered By: Ko Morgan on 80-85-6845Ascrmdknw RBC Auto Ql (Bld)0.1 /100{WBC} 0-0.5FMcKitrick HospitalPlatelet mean volume Auto (Bld) [Entitic vol]Ordered By: Ko Morgan on 70-31-2599Ubyxmxzc mean volume (Bld) [Entitic vol] 6.8 fL6.6-10.1FMcKitrick HospitalPlatelets Auto (Bld) [#/Vol] Ordered By: Ko Morgan on 30-00-3262Gpburgihq (Bld) [#/Vol]215 10*3/tD868-014 [facility] HospitalPotassium [Moles/volume] in Serum or Plasma Ordered By: Ko Morgan on 79-00-4583Xbdioalom [Moles/Vol]4.5 mmol/L3.5-5.1 [facility] HospitalRBC Auto (Bld) [#/Vol]Ordered By: Ko Morgan on 58-78-9012BNG (Bld) [#/Vol]4.52 10*6/uL3.90-5.60[facility]tering Health Springfielderum or plasma anion gap determinationOrdered By: Ko Morgan on 04-23-2023 Anion gap [Moles/Vol]10.5 mmol/L6.0-15.0[facility] Health Springfielderum or plasma high density lipoprotein (HDL) cholesterol measurementOrdered By: Ko Morgan on 32-35-1243Kqvhrxnewoi in HDL [Mass/Vol]56 mg/xM90-38ImjmvluirMartin Memorial HospitalComment on above:HDL CHOL ATP-III CLASSIFICATION Cardiovascular RiskHDL > or equal to 60 mg/dL LOWHDL < 40 mg/dL HIGHSerum or plasma total cholesterol/high density lipoprotein (HDL) cholesterol mass rat Ordered By: Ko Morgan on 36-69-5478Fentzldpkoz.total/Cholesterol in HDL [Mass ratio]2.6 {ratio}<5.0[facility] Springfieldodium [Moles/volume] in Serum or PlasmaOrdered By: Ko Morgan on 32-08-4875Ypkats [Moles/Vol]137 mmol/L 136-145Martin Memorial HospitalTriglyceride [Mass/volume] in Serum or PlasmaOrdered By: Ko Morgan on 91-10-1428Qcqfslyqygsi [Mass/Vol]97 mg/dL0-149 [facility] HospitalComment on above:TRIG ATP III CLASSIFICATIONTRIG less than 150 mg/dL NormalTRIG 150-199 mg/dL Borderline highTRIG 200-500 mg/dL High TRIG greater than 500 mg/dL Very highStandard traceable to the Center for Disease Conrtrol and Prevention (CDC) test method. Troponin I.cardiac [Mass/volume] in Serum or Plasma by Detection limit <= 0.01 ng/Ordered By: Ko Morgan on 90-03-9977Wdyciwwi I.cardiac DL <= 0.01 ng/mL [Mass/Vol]97482.2 pg/mL0.0-20.0Martin Memorial HospitalComment on above:Critical Result : Called to and read back by: STACY JACKSON at: 04/23/2023 04:24:25 by:[id number] nitrogen [Mass/volume] in Serum or PlasmaOrdered By: Ko Morgan on 00-21-5496Dgbd nitrogen [Mass/Vol]24 mg/dL7-25Martin [facility] HospitalWBC Auto (Bld) [#/Vol]Ordered By: Ko Morgan on 71-74-8754CNL (Bld) [#/Vol]8.1 10*3/uL4.1-10.5FMcKitrick HospitalCBC AUTO DIFFon 25-18-2495BVYW #0.0 103/ulNormal0.0-0.1The [facility]rville HospitalComment on above: Performed By: #### CBC ####[facility] [address] [place], [place] [address]Dr.Yilan ChangBasophils/100 WBC (Bld)0.6 %Normal 0.2-2.0The [facility] HospitalComment on above:Performed By: #### CBC ####[facility] [address] [place] [address]Dr.Yilan ChangEO # 0.5 103/ulNormal0.0-0.7The [facility] HospitalComment on above:Performed By: #### CBC ####[facility] [address] [place] [address]Dr. Yilan ChangEosinophils/100 WBC (Bld)7.0 %Normal0.9-7.0The [facility] Comment on above:Performed By: #### CBC ####[facility] [address] [place], [place] [address]Dr.Yijennifer ChangErythrocyte distribution width (RBC) [Ratio]13.6 %Vmthcm03.0-15.0The [facility] HospitalComment on above: Performed By: #### CBC ####[facility] [address]ul[address] [place] [address]Dr.Cipriano ChangHematocrit (Bld) [Volume fraction]41.9 % Critically low42.0-54.0The [facility] HospitalComment on above:Performed By: #### CBC ####[facility] [address] [place], [place] [address]Dr. Carolejennifer ChangHemoglobin (Bld) [Mass/Vol]13.7 g/dLCritically low14.0-18.0The [facility] HospitalComment on above:Performed By: #### CBC ####[facility] [address]fbn[address] [place], [place] [address]Dr.Yilan ChangIG #0.01 10e3/ulNormal0.00-0.03The [facility] HospitalComment on above:Performed By: #### CBC ####[facility] [address]ups[address] [place], [place] [address]Dr. Yijennifer ChangIG %0.2 %Normal0.0-0.5The [facility] HospitalComment on above:Performed By: #### CBC ####[facility] [address] [place], [place] [address]Dr.Yilan ChangLYMPH #1.3 103/ulNormal1.2-3.8The [facility] Comment on above:Performed By: #### CBC ####[facility] [address] [place], [place] [address]Dr.Carolelan ChangLymphocytes/100 WBC (Bld)19.5 %Critically low20.5-60.0The [facility] HospitalComment on above:Performed By: #### CBC ####[facility] [address] [place], [place] [address]Dr.Carolelan ChangMANUAL DIFF REQNONormalThe [facility] HospitalComment on above: Performed By: #### CBC ####[facility] [address]clvce[address] [place] [address]Dr.Cipriano AbdiH (RBC) [Entitic mass]29.4 pgNormal 25.9-34.0The [facility] HospitalComment on above:Performed By: #### CBC ####[facility] [address]jy[address] [place], [place] [address]Dr. Cipriano AbdiHC (RBC) [Mass/Vol]32.7 g/eSBdzmcb55.9-35.2The [facility] Comment on above:Performed By: #### CBC ####[facility] [address] [place], [place] [address]Dr.Carolejennifer PattonMCV (RBC) [Entitic vol]89.9 fL Hdyihi07.0-94.0The [facility] HospitalComment on above:Performed By: #### CBC ####[facility] Mqof[address]ug[address] [place], [place] [address]Dr. Cipriano PattonMONO #0.9 103/ulCritically high0.3-0.8The [facility] HospitalComment on above:Performed By: #### CBC ####[facility] [address] [place], [place] [address]Dr.Cipriano PattonMonocytes/100 WBC (Bld)14.7 %Critically high1.7-12.0The [facility] HospitalComment on above:Performed By: #### CBC ####[facility] [address] [place], [place] [address]Dr. Carolejennifer PattonNEUT #3.7 103/ulNormal1.4-6.5The [facility] HospitalComment on above: Performed By: #### CBC ####[facility] [address] [place], [place] [address]Dr.Carolejennifer PattonNeutrophils/100 WBC (Bld)58.0 %Normal 43.0-75.0The [facility] HospitalComment on above:Performed By: #### CBC ####[facility] [address] [place], [place] [address]Dr. Carolejennifer PattonPlatelet mean volume (Bld) [Entitic vol]8.5 fLCritically low9.5-13.5 The [facility] HospitalComment on above:Performed By: #### CBC ####[facility] [address] [place] [address]Dr.Cipriano PattonPLT215 103/yeKdmyoh363-626Zaf [facility] HospitalComment on above:Performed By: #### CBC ####[facility] [address] [place] [address]Dr. Cipriano PattonRBC4.66 106/ulCritically low4.70-6.10The [facility] HospitalComcorewell health william [facility] on above:Performed By: #### CBC ####[facility] [address]pl[address] [place] [address]Dr.Cipriano PattonWBC6.4 103/ulNormal4.0-11.0The [facility] HospitalComment on above:Performed By: #### CBC ####[facility] [address] [place] [address]Dr.Carolejennifer Grimaldoplete Blood Count and Diffon 82-67-9110Zvmkaztaisvi Ql (Bld)StylePuzzle Other basophilic stippling LM Ql (Bld)[employer] Other rBC morphology finding Nom (d)[employer] Other complete Blood Count and DiffNortKaminario Other FERRITINon 52-15-0779Ekqqfule [Mass/Vol]130.0 ng/mL Ssygru43.0-388.0The [facility] HospitalComment on above:Performed By: #### FERR, FETIBC, B12FOL ####[facility] [address]tranj[address] [place] [address]Dr. Cipriano PattonIRON AND TIBCon 67-06-7136Kbyp [Mass/Vol]91.6607274 ug/dL65.0-175.0 ug/dLStylePuzzle Other IRON AND NTMF533.0 ug/dL250.0-450.0 ug/dLStylePuzzle Other IRON AND TIBC35.4 %[facility] [employer] Other IRON AND TIBCsee noteNoExcela [facility] [employer] Other % HHEBEEWQYB34.4 %NormalThe [facility]rville HospitalComment on above:Performed By: #### FERR, FETIBC, B12FOL ####[facility] [address] [place] [address]Dr. Cipriano ChangIron [Mass/Vol]91.0 ug/nXJwlflf81.0-175.0The [facility] HospitalComment on above: Performed By: #### FERR, FETIBC, B12FOL ####[facility] [address] [place], [place] [address]Dr. Cipriano PattonTIBC JNQKKI529.0 ug/dLNormal 250.0-450.0The [facility] HospitalComment on above:Performed By: #### FERR, FETIBC, B12FOL ####[facility] [address] [place], [place] [address]Dr. Cipriano PtatonVIT B12 AND FOLATEon 81-33-3555Lnfrznekg (Vitamin B12) [Mass/Vol]948.9639784 pg/mL193.0-986.0 pg/mLNMaria [facility] [employer] Other VIT B12 AND VCKIKX18.50 ng/mL8.60-58.90 ng/mLNMaria [facility] [employer] Other Cobalamin (Vitamin B12) [Mass/Vol]628.0 pg/mLNormal 193.0-986.0The [facility] HospitalComment on above:Performed By: #### FERR, FETIBC, B12FOL ####[facility] [address] [place] [address]Dr. Cipriano PldbkBVTRCB49.50 ng/mLNormal8.60-58.90The [facility] Comment on above:Performed By: #### FERR, FETIBC, B12FOL ####[facility] [address] [place], [place] [address]Dr. Cipriano RuffinC,PLATELETS on 83-59-7415Jljbxdqcjo (Bld) [Volume fraction]40.7 %Hdzeld32.6-48.8[facility] Medical CenterComment on above:Performed By: #### ARCHIE HINDS, CHM7 #### [facility] (DEFAULT) [address] [place] [address]Ruugtbpdoh (Bld) [Mass/Vol]13.5 g/oVIaaezm36.4-16.8[facility] CenterComment on above:Performed By: #### ARCHIE HINDS, CHM7 #### [facility] (DEFAULT) [address] [place] [address] 78649SGX (RBC) [Entitic vol]89.1 bTVwmnqy04.0-94.5[facility] CenterComment on above:Performed By: #### ARCHIE HINDS, CHM7 #### [facility] (DEFAULT) [address] [place] [address] 90409Jbhk Cell Hgb29.5 ecBfyizo21.1-33.3[facility] CenterComment on above:Performed By: #### ARCHIE HINDS, CHM7 #### [facility] (DEFAULT) [address] [place] [address]37[address]Arcl Cell Hgb Conc33.2 g/uPKzlupv56.9-36.5[facility] CenterComment on above:Performed By: #### ARCHIE HINDS, CHM7 #### [facility] (DEFAULT) [address] [place] [address]Obpwfqtq mean volume (Bld) [Entitic vol]9.1 fLNormal8.7-12.3 [facility] CenterComment on above:Performed By: #### ARCHIE HINDS, CHM7 #### [facility] (DEFAULT) [address] [place] [address]Mtszoogqc (Bld) [#/Vol]209 10*3/xBFmgxrx753-414PkxsDayton Va Medical CenterComment on above:Performed By: #### MGO, HFP, CHM7 #### [facility] (DEFAULT) [address] [place] [address] 89439QOR (Bld) [#/Vol]4.57 10*6/uLNormal4.38-5.83[facility] CenterComment on above:Performed By: #### MGO, HFP, CHM7 #### [facility] (DEFAULT) [address] [place] [address] 27535FHQ Jhoyqrowdltt09.9 %Uarouz05.9-14.3[facility] CenterComment on above:Performed By: #### MGO, HFP, CHM7 #### [facility] (DEFAULT) [address] [place] [address] 61395YGK (Bld) [#/Vol]6.15 10*3/uLNormal3.73-10.10[facility] CenterComment on above:Performed By: #### MGO, HFP, CHM7 #### [facility] (DEFAULT) [address] [place] [address] 26740NLYZ 7 (LYTES,BUN,CREA,GLUC)on 39-35-6955Poiat gap [Moles/Vol] 15 mmol/LNormal7-17[facility] CenterComment on above: Performed By: #### MGO, HFP, CHM7 #### [facility] (DEFAULT) [address] [place] [address] 38126Dbkavyvf [Moles/Vol]105 mmol/VUysnzu60-760BrlgDayton Va Medical CenterComment on above:Performed By: #### MGO, HFP, CHM7 #### [facility] (DEFAULT) [address] [place] [address] 63958GS2 [Moles/Vol]22 mmol/VPxovoj11-69WdjgDayton Va Medical CenterComment on above:Performed By: #### MGO, HFP, CHM7 #### [facility] (DEFAULT) [address] [place] [address] 520[address]Kmsgszaphb [Mass/Vol]1.05 mg/dLNormal0.70-1.30[facility] CenterComment on above:Performed By: #### ARCHIE HINDS, CHM7 #### [facility] (DEFAULT) [address] [place] [address] 86458AMA/1.73 sq M.predicted among non-blacks MDRD (S/P/Bld) [Vol rate/Area]69 mL/min/{1.73_m2}Normal>=60[facility] CenterComment on above:Result Comment: Reported eGFR is based on the CKD-EPI 2020 equation using creatinine, age, and sex.Performed By: #### ARCHIE HINDS, CHM7 #### [facility] (DEFAULT) [address] [place] [address] 16106Ebegrut [Mass/Vol]68 mg/sVPgl99-70OmneDayton Va Medical CenterComment on above:Performed By: #### ARCHIE HINDS, CHM7 #### [facility] (DEFAULT) [address] [place] [address] 57226Exnwnquggt [Osmolality]289 mosm/wlGsyvyn222-072RbuxDayton Va Medical CenterComment on above:Performed By: #### ARCHIE HINDS, CHM7 #### [facility] (DEFAULT) [address] [place] [address] 09707Crorafxpq [Moles/Vol]4.2 mmol/LNormal3.5-5.0[facility] CenterComment on above:Performed By: #### ARCHIE HINDS, CHM7 #### [facility] (DEFAULT) [address] [place] [address] [id number] [Moles/Vol]138 mmol/EXuhbly932-726YmpxDayton Va Medical CenterComment on above:Performed By: #### ARCHIE HINDS, CHM7 #### [facility] (DEFAULT) [address] [place], [place] [address]Olop nitrogen [Mass/Vol]17 mg/dLNormal7-25Day[facility] Va Medical CenterComment on above:Performed By: #### MGO, HFP, CHM7 #### [facility] (DEFAULT) [address] [place] [address] [id number] nitrogen/Creatinine [Mass ratio]16 mg/mgNormalOhio Mercy Health Clermont HospitalComment on above:Performed By: #### MGO, HFP, CHM7 #### [facility] (DEFAULT) [address] [place] [address] 32583PRUXFHG FUNCTION PANELon 44-38-4178Qrubvnh [Mass/Vol]3.4 g/dL Low3.5-5.0Day[facility] Medical CenterComment on above:Performed By: #### MGO, HFP, CHM7 #### [facility] (DEFAULT) [address] [place] [address] 99767VBC [Catalytic activity/Vol]47 U/TRimrrf53-160TygwDayton Va Medical CenterComment on above:Performed By: #### MGO, HFP, CHM7 #### [facility] (DEFAULT) [address] [place] [address] 44143IRJ [Catalytic activity/Vol]6 U/XOdt03-39PcuvDayton Va Medical CenterComment on above:Performed By: #### MGO, HFP, CHM7 #### [facility] (DEFAULT) [address] [place] [address] 96710XYR [Catalytic activity/Vol]14 U/QUokawa81-70NuafDayton Va Medical CenterComment on above:Performed By: #### MGO, HFP, CHM7 #### [facility] (DEFAULT) [address] [place] [address] 01203Diahuxjsj [Mass/Vol]0.7 mg/dLNormal<1.5[facility] CenterComment on above:Performed By: #### MGO, HFP, CHM7 #### [facility] (DEFAULT) [address] [place] [address] 94811Pqvywdczf.indirect [Mass/Vol]0.1 mg/dLNormal<0.3OhMercy Health Kings Mills HospitalComment on above:Performed By: #### ARCHIE HINDS, CHM7 #### [facility] (DEFAULT) [address] [place] [address] 75122Brppupq [Mass/Vol]5.9 g/dLLow6.4-8.3[facility] CenterComment on above:Performed By: #### ARCHIE HINDS, CHM7 #### [facility] (DEFAULT) [address] [place] [address] 58868PYUROSKOEsp 44-91-1488Mceceippa [Mass/Vol]1.9 mg/dLNormal 1.6-2.6[facility] CenterComment on above:Performed By: #### ARCHIE HINDS, CHM7 #### [facility] (DEFAULT) [address] [place] [address] 70500CS,INR,PTTon 47-62-6096dMBI Coag (Bld) [Time]33.6 sNormal 24.0-34.3[facility] Medical CenterComment on above:Performed By: #### ARCHIE HINDS, CHM7 #### [facility] (DEFAULT) [address] [place] [address] 49853BQS Coag (PPP) [Relative time]1.2 {INR}High0.9-1.1[facility] Medical CenterComment on above:Performed By: #### ARCHIE HINDS, CHM7 #### [facility] (DEFAULT) [address] [place] [address] 59577UN Coag (PPP) [Time]14.8 sHigh11.9-14.2[facility] Medical CenterComment on above:Performed By: #### ARCHIE HINDS, CHM7 #### [facility] (DEFAULT) [address] [place] [address] 32888FNW,PLATELETSon 20-13-1567Useiavfgcy (Bld) [Volume fraction] 37.3 %Low39.6-48.8[facility] Medical CenterComment on above: Performed By: #### HEMOGC #### [facility] (DEFAULT) [address] [place] [address] 25260Ozesckpqxx (Bld) [Mass/Vol]12.5 g/dLLow13.4-16.8[facility] CenterComment on above:Performed By: #### HEMOGC #### [facility] (DEFAULT) [address] [place] [address] 63718YIH (RBC) [Entitic vol]88.4 zSGyfxiw72.0-94.5[facility] Medical CenterComment on above:Performed By: #### HEMOGC #### [facility] (DEFAULT) [address] [place] [address] 63036Qytk Cell Hgb29.6 stTdonln87.1-33.3[facility] CenterComment on above:Performed By: #### HEMOGC #### [facility] (DEFAULT) [address] [place] [address] 29549Bfrl Cell Hgb Conc33.5 g/pBVsfnov57.9-36.5[facility] CenterComment on above:Performed By: #### HEMOGC #### [facility] (DEFAULT) [address] [place] [address] 32765Ugsoroah mean volume (Bld) [Entitic vol]9.0 fLNormal8.7-12.3 [facility] CenterComment on above:Performed By: #### HEMOGC #### [facility] (DEFAULT) [address] [place] [address] 72038Hexpwzmrb (Bld) [#/Vol]198 10*3/wRXpayam453-346UohnDayton Va Medical CenterComment on above:Performed By: #### HEMOGC #### [facility] (DEFAULT) [address] [place] [address] 69342DQV (Bld) [#/Vol]4.22 10*6/uLLow4.38-5.83[facility] CenterComment on above:Performed By: #### HEMOGC #### [facility] (DEFAULT) [address] [place] [address] 50996SQF Osybajjgpsks11.9 %Jicmxy48.9-14.3[facility] Medical CenterComment on above:Performed By: #### HEMOGC #### [facility] (DEFAULT) [address] [place] [address] 58843ARY (Bld) [#/Vol]5.77 10*3/uLNormal3.73-10.10[facility] CenterComment on above:Performed By: #### HEMOGC #### [facility] (DEFAULT) [address] [place] [address] 79372ARRS 7 (LYTES,BUN,CREA,GLUC)on 61-53-1489Xpgaj gap [Moles/Vol] 10 mmol/LNormal7-17[facility] CenterComment on above: Performed By: #### MGO, HFP, CHM7 #### [facility] (DEFAULT) [address] [place] [address] 03438Jprcbkcs [Moles/Vol]108 mmol/PLtmksl71-360LttkDayton Va Medical CenterComment on above:Performed By: #### MGO, HFP, CHM7 #### [facility] (DEFAULT) [address] [place] [address] 41386NC5 [Moles/Vol]22 mmol/AZqdbeh10-00MwqlDayton Va Medical CenterComment on above:Performed By: #### MGO, HFP, CHM7 #### [facility] (DEFAULT) [address] [place] [address] 42747Ecjgpjppln [Mass/Vol]0.91 mg/dLNormal0.70-1.30[facility] Medical CenterComment on above:Performed By: #### MGO, HFP, CHM7 #### [facility] (DEFAULT) [address] [place] [address] 16375GVU/1.73 sq M.predicted among non-blacks MDRD (S/P/Bld) [Vol rate/Area]82 mL/min/{1.73_m2}Normal>=60[facility] Medical CenterComment on above:Result Comment: Reported eGFR is based on the CKD-EPI 2020 equation using creatinine, age, and sex.Performed By: #### ARCHIE HINDS, CHM7 #### [facility] (DEFAULT) [address] [place] [address] 88022Mkwzlnp [Mass/Vol]81 mg/pHFmawcb76-86JyizDayton Va Medical CenterComment on above:Performed By: #### ARCHIE HINDS, CHM7 #### [facility] (DEFAULT) [address] [place] [address] 32687Qpraxnzano [Osmolality]285 mosm/cvHfulxo166-799QglgDayton Va Medical CenterComment on above:Performed By: #### ARCHIE HINDS, CHM7 #### [facility] (DEFAULT) [address] [place] [address] 60357Pnmboprde [Moles/Vol]4.0 mmol/LNormal3.5-5.0[facility] CenterComment on above:Performed By: #### ARCHIE HINDS, CHM7 #### [facility] (DEFAULT) [address] [place] [address] 72334Rspczy [Moles/Vol]136 mmol/DXqnoss082-968UzffDayton Va Medical CenterComment on above:Performed By: #### ARCHIE HINDS, CHM7 #### [facility] (DEFAULT) [address] [place] [address] 69026Tpns nitrogen [Mass/Vol]15 mg/dLNormal7-25[facility] CenterComment on above:Performed By: #### ARCHIE HINDS, CHM7 #### [facility] (DEFAULT) [address] [place], [place] [address]Muyi nitrogen/Creatinine [Mass ratio]16 mg/mgNoWyandot Memorial HospitalComment on above:Performed By: #### MGO, [facility], CHM7 #### [facility] (DEFAULT) [address] [place], [place] [address]IG ABDOMEN/ABDOMEN-PELVIS (INTERPRETATION - OUTSIDE IMAGE)on 62-96-1325QV ABDOMEN/ABDOMEN-PELVIS (INTERPRETATION - OUTSIDE IMAGE)EXAM: CT ABDOMEN/ABDOMEN-PELVIS (INTERPRETATION - OUTSIDE IMAGE), 11/04/2022 [...] metastatic disease in the abdomen or pelvis. [facility]22 IMPRESSION: 1. Suspect early/partial small bowel obstruction versus ileus. A transition point is not clearly visible. Small right femoral hernia with a few small bowel loops does not appear to be a site of obstruction. 2. 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 No findings of metastatic disease in the abdomen or pelvis. RADIOLOGY EXAM: CT ABDOMEN/ABDOMEN-PELVIS (INTERPRETATION - OUTSIDE IMAGE), [...] changes of the spine. No suspicious lesion. RADIOLOGYFoSamantha nelson MD - 11/04/2022 EXAM: CT ABDOMEN/ABDOMEN-PELVIS (INTERPRETATION - OUTSIDE IMAGE), [...] metastatic disease in the abdomen or pelvis. [facility] HospitalRad[facility] observation (narrative)[facility]CT [facility]domen and PelvisOrdered By: Samantha Saldaña on 71-11-1085ZSYGreene Memorial Hospital Work Phone: HEPATIC FUNCTION PANELon 17-42-8240Nopjdfy [Mass/Vol] 3.2 g/dLLow3.5-5.0[facility] CenterComment on above: Performed By: #### ARCHIE HINDS, CHM7 #### [facility] (DEFAULT) [address] 19279SAM [Catalytic activity/Vol]41 U/CLejkfg08-138YsgfDayton Va Medical CenterComment on above:Performed By: #### MGO HFP, CHM7 #### [facility] (DEFAULT) [address] 89130NLY [Catalytic activity/Vol]7 U/GDnk19-91TwsbDayton Va Medical CenterComment on above:Performed By: #### ARCHIE HINDS, CHM7 #### [facility] (DEFAULT) [address] [place] [address] 30442OYP [Catalytic activity/Vol]13 U/TRocili21-37PkcgDayton Va Medical CenterComment on above:Performed By: #### ARCHIE HINDS, CHM7 #### [facility] (DEFAULT) [address] [place] [address] 07533Lfruelvqo [Mass/Vol]0.6 mg/dLNormal<1.5[facility] CenterComment on above:Performed By: #### ARCHIE HINDS, CHM7 #### [facility] (DEFAULT) [address] [place] [address] 01555Kjkvaydrd.indirect [Mass/Vol]0.1 mg/dLNormal<0.3OhMercy Health Kings Mills HospitalComment on above:Performed By: #### ARCHIE HINDS, CHM7 #### [facility] (DEFAULT) [address] [place] [address] 22017Cqskuft [Mass/Vol]5.6 g/dLLow6.4-8.3[facility] CenterComment on above:Result Comment: Results inconsistent with previous resultsPerformed By: #### ARCHIE HINDS, CHM7 #### [facility] (DEFAULT) [address] [place] [address] 76125LBIRMDXREgw 95-42-6607Bzopghvil [Mass/Vol]1.8 mg/dLNormal 1.6-2.6[facility] CenterComment on above:Performed By: #### ARCHIE HINDS, CHM7 #### [facility] (DEFAULT) [address] [place] [address] 11101VS,INR,PTTon 73-41-3926zNHY Coag (Bld) [Time]31.9 sNormal 24.0-34.3[facility] CenterComment on above:Performed By: #### PTPTT #### [facility] (DEFAULT) [address] [place] [address] 79801LWX Coag (PPP) [Relative time]1.1 {INR}Normal0.9-1.1[facility] Medical CenterComment on above:Performed By: #### PTPTT #### [facility] (DEFAULT) [address] [place] [address] 84483BY Coag (PPP) [Time]14.3 sHigh11.9-14.2[facility] Medical CenterComment on above:Performed By: #### PTPTT #### [facility] (DEFAULT) [address] [place] [address] 14345AOYIXJDvw 34-00-2452Cdtkpvb [Mass/Vol]9.4 mg/dLNormal8.6-10.5 [facility] CenterComment on above:Performed By: #### MGO, HFP, CHM7 #### [facility] (DEFAULT) [address] [place] [address] 86883UEB AND ELECTRONIC DIFFon 70-07-5913Zcx Baso Auto<Normal 0.00-0.09[facility] Medical CenterComment on above:Performed By: #### [id number] #### [facility] (DEFAULT) [address] [place] [address] 56797Ikeduqiqi/100 WBC (Bld)0.2 %NormalDayton Va Medical CenterComment on above:Performed By: #### [id number] #### [facility] (DEFAULT) [address] [place] [address] 35594VHGI STATUSElectronic DifferentialNormalOKettering HealthComment on above:Performed By: #### [id number] #### [facility] (DEFAULT) [address] [place] [address] 65313Vsxiyiwzwrb (Bld) [#/Vol]0.25 10*3/uLNormal0.00-0.48[facility] CenterComment on above:Performed By: #### [id number] #### [facility] (DEFAULT) [address] 82156Tfbafnworwt/100 WBC (Bld)3.0 %[facility] HospitalComment on above:Performed By: #### [id number] #### [facility] (DEFAULT) [address] 71781Kragnalvvw (Bld) [Volume fraction]43.6 %Bcbuqr24.6-48.8[facility] CenterComment on above:Performed By: #### [id number] #### [facility] (DEFAULT) [address] 44035Eduuxoojvb (Bld) [Mass/Vol]14.5 g/mWNutgnv10.4-16.8[facility] CenterComment on above:Performed By: #### [id number] #### [facility] (DEFAULT) [address] 69845Nbkmeele Grans %0.2 %[facility] HospitalComment on above:Performed By: #### [id number] #### [facility] (DEFAULT) [address] 55207Xxrdsazs Grans Absolute<Normal<=0.07[facility] Medical CenterComment on above:Performed By: #### [id number] #### [facility] (DEFAULT) [address] 85459Sjufhmwrhmv (Bld) [#/Vol]1.05 10*3/uLNormal0.83-3.57[facility] Medical CenterComment on above:Performed By: #### [id number] #### [facility] (DEFAULT) [address] 86526Wkmthbbrjgs/100 WBC (Bld)12.5 %[facility] HospitalComment on above:Performed By: #### [id number] #### [facility] (DEFAULT) [address] [place] [address] 00253VHH (RBC) [Entitic vol]89.0 pNApqjnn19.0-94.5[facility] CenterComment on above:Performed By: #### [id number] #### [facility] (DEFAULT) [address] [place] [address] 53569Wtkq Cell Hgb29.6 vdGqniub74.1-33.3[facility] CenterComment on above:Performed By: #### [id number] #### [facility] (DEFAULT) [address] [place] [address] 15975Nisz Cell Hgb Conc33.3 g/qAEglcxb51.9-36.5[facility] CenterComment on above:Performed By: #### [id number] #### [facility] (DEFAULT) [address] [place] [address] 80085Pwwhkrhau (Bld) [#/Vol]1.15 10*3/uLHigh0.24-0.93[facility] CenterComment on above:Performed By: #### USQ915 #### [facility] (DEFAULT) [address] 07751Xoqqstatx/100 WBC (Bld)13.7 %NormalDayton Va Medical CenterComment on above:Performed By: #### AFT851 #### [facility] (DEFAULT) [address] [place] [address] 69844Mzeybfxdh RBC0.0 /100 WBCNormal<=0.2[facility] CenterComment on above:Performed By: #### IPT371 #### [facility] (DEFAULT) [address] [place] [address] 36972Ywwsxkkp mean volume (Bld) [Entitic vol]8.8 fLNormal8.7-12.3 [facility] CenterComment on above:Performed By: #### [id number] #### [facility] (DEFAULT) [address] [place] [address] 31991Lhyurzbny (Bld) [#/Vol]223 10*3/rJQgxrth041-667HcvxDayton Va Medical CenterComment on above:Performed By: #### WEY883 #### [facility] (DEFAULT) [address] [place] [address] 83166RCW (Bld) [#/Vol]4.90 10*6/uLNormal4.38-5.83[facility] CenterComment on above:Performed By: #### [id number] #### [facility] (DEFAULT) [address] [place] [address] 35432YWU Ndqxqixqdatx77.9 %Dfhcan57.9-14.3[facility] CenterComment on above:Performed By: #### [id number] #### [facility] (DEFAULT) [address] [place] [address] 06369Yaaz + Bands Auto70.4 %NormalDayton Va Medical CenterComment on above:Performed By: #### [id number] #### [facility] (DEFAULT) [address] [place] [address] 39422Lrul + Bands,Absolute Auto5.91 K/uLNormal1.57-6.19[facility] CenterComment on above:Performed By: #### RSC538 #### [facility] (DEFAULT) [address] [place] [address] 65475UYN (Bld) [#/Vol]8.40 10*3/uLNormal3.73-10.10[facility] CenterComment on above:Performed By: #### [id number] #### [facility] (DEFAULT) [address] [place] [address] 84900NWO AUTO DIFFon 48-27-1461SVHU #0.0 103/ulNormal0.0-0.1[facility] Community HospitalComment on above:Performed By: #### CBC #### [facility] [address] [address] [address] Yilan ChangBasophils/100 WBC (Bld)0.3 %Normal0.2-2.0The [facility] Comment on above:Performed By: #### CBC #### [facility] [address] [place] [address] Dr. Cipriano Rahman #0.3 103/ulNormal0.0-0.7The [facility] HospitalComment on above: Performed By: #### CBC #### [facility] [address] [place] [address] Dr. Cipriano Coleosinophils/100 WBC (Bld)4.0 %Normal0.9-7.0The [facility] Comment on above:Performed By: #### CBC #### [facility] [address] [place] [address] Dr. Cipriano Colerythrocyte distribution width (RBC) [Ratio]13.1 %Xrlbim49.0-15.0 The [facility] HospitalComment on above:Performed By: #### CBC #### [facility] [address] [place] [address] Dr. Cipriano PattonHematocrit (Bld) [Volume fraction]41.6 %Critically low42.0-54.0 The [facility] HospitalComment on above:Performed By: #### CBC #### [facility] [address] [place] [address] Dr. Cipriano PattonHemoglobin (Bld) [Mass/Vol]14.1 g/ePBnrntm27.0-18.0The [facility] HospitalComment on above:Performed By: #### CBC #### [facility] [address] [place] [address] Dr. Cipriano Braxton #0.02 10e3/ulNormal0.00-0.03The [facility] HospitalComment on above:Performed By: #### CBC #### [facility] [address] [place] [address] Dr. Cipriano Braxton %0.3 %Normal0.0-0.5The [facility] HospitalComment on above: Performed By: #### CBC #### [facility] [address] [place] [address] Dr. Cipriano Tate #1.0 103/ulCritically low1.2-3.8The [facility] Comment on above:Performed By: #### CBC #### [facility] [address] [place] [address] Dr. Cipriano Penahocytes/100 WBC (Bld)13.0 %Critically low20.5-60.0The [facility] HospitalComment on above:Performed By: #### CBC #### [facility] [address] [place] [address] Dr. Cipriano Webb DIFF REQNONormalThe [facility] HospitalComment on above: Performed By: #### CBC #### [facility] [address] [place] [address] Dr. Cipriano Ceja (RBC) [Entitic mass]29.6 wvOjbhqk76.9-34.0The [facility] HospitalComment on above:Performed By: #### CBC #### [facility] [address] [place] [address] Dr. Cipriano Ceja (RBC) [Mass/Vol]33.9 g/gNYqmzdb68.9-35.2The [facility] HospitalComment on above:Performed By: #### CBC #### [facility] [address] [place] [address] Dr. Cipriano Ceja (RBC) [Entitic vol]87.2 zQPhgrsk62.0-94.0The [facility] HospitalComment on above:Performed By: #### CBC #### [facility] [address] [place] [address] Dr. Cipriano Hines #0.9 103/ulCritically high0.3-0.8The [facility] Comment on above:Performed By: #### CBC #### [facility] [address] [place] [address] Dr. Cipriano Palacioocytes/100 WBC (Bld)12.9 %Critically high1.7-12.0The [facility] HospitalComment on above:Performed By: #### CBC #### [facility] [address] [address] [address] Cipriano FerrellUT #5.1 103/ulNormal1.4-6.5The [facility] HospitalComment on above:Performed By: #### CBC #### [facility] [address] [place] [address] Dr. Cipriano Ferrellutrophils/100 WBC (Bld)69.5 %Diyqeo63.0-75.0The [facility] HospitalComment on above:Performed By: #### CBC #### [facility] [address] [place] [address] Dr. Cipriano PattonPlatelet mean volume (Bld) [Entitic vol]8.7 fLCritically low 9.5-13.5The [facility] HospitalComment on above:Performed By: #### CBC #### [facility] [address] [place] [address] Dr. Cipriano PattonPLT216 103/xvLlyfhv711-189Sfs [facility] HospitalComment on above: Performed By: #### CBC #### [facility] [address] [place] [address] Dr. Cipriano PattonRBC4.77 106/ulNormal4.70-6.10The [facility] HospitalComment on above:Performed By: #### CBC #### [facility] [address] [place] [address] Dr. Cipriano PattonWBC7.3 103/ulNormal4.0-11.0The [facility] HospitalComment on above: Performed By: #### CBC #### [facility] [address] [place] [address] Dr. Cipriano Morales 7 - EDon 25-20-7961Cqeci gap [Moles/Vol]11 mmol/LNormal7-17 [facility] CenterComment on above:Performed By: #### MGO, HFP, CHM7 #### [facility] (DEFAULT) [address] [place] [address] 97577Ssqfnvup [Moles/Vol]105 mmol/MEyjiqk15-565DwqbDayton Va Medical CenterComment on above:Performed By: #### ARCHIE HINDS CHM7 #### [facility] (DEFAULT) [address] [place] [address] 30077UT4 [Moles/Vol]27 mmol/QGxyskh83-86TccnDayton Va Medical CenterComment on above:Performed By: #### ARCHIE HINDS, CHM7 #### [facility] (DEFAULT) [address] [place] [address] 45373Afambhzeuy [Mass/Vol]1.02 mg/dLNormal0.70-1.30[facility] CenterComment on above:Performed By: #### ARCHIE HINDS CHM7 #### [facility] (DEFAULT) [address] [place] [address] 42451XBM/1.73 sq M.predicted among non-blacks MDRD (S/P/Bld) [Vol rate/Area]72 mL/min/{1.73_m2}Normal>=60[facility] CenterComment on above:Result Comment: Reported eGFR is based on the CKD-EPI 2020 equation using creatinine, age, and sex.Performed By: #### ARCHIE HINDS CHM7 #### [facility] (DEFAULT) [address] [place] [address] 06033Fkoinpy [Mass/Vol]97 mg/jCYwbolc88-82XyhyDayton Va Medical CenterComment on above:Performed By: #### ARCHIE HINDS CHM7 #### [facility] (DEFAULT) [address] [place] [address] 19096Yjmpsjsgac [Osmolality]291 mosm/fzBjvwia075-353TmrlDayton Va Medical CenterComment on above:Performed By: #### ARCHIE HINDS, CHM7 #### [facility] (DEFAULT) [address] [place] [address] 14522Esceyuewu [Moles/Vol]4.6 mmol/LNormal3.5-5.0[facility] CenterComment on above:Performed By: #### MGO, HFP, CHM7 #### [facility] (DEFAULT) [address] [place], [place] [address]Dijkuf [Moles/Vol]138 mmol/JHayhjw945-102FzpxDayton Va Medical CenterComment on above:Performed By: #### MGO, HFP, CHM7 #### [facility] (DEFAULT) [address] [place], [place] [address]Iuvg nitrogen [Mass/Vol]16 mg/dLNormal7-25OhMercy Health Kings Mills HospitalComment on above:Performed By: #### MGO, HFP, CHM7 #### [facility] (DEFAULT) [address] [place] [address] 34423Gtxj nitrogen/Creatinine [Mass ratio]16 mg/mgNormalOhio Mercy Health Clermont HospitalComment on above:Performed By: #### MGO, HFP, CHM7 #### [facility] (DEFAULT) [address] [place] [address] 00950RI ABD/PELV W CONon 92-09-4894CZ ABD/PELV W CONEXAMINATION: CT ABD/PELV W CON 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; 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 [...] Electronically authenticated by: ANKIT DANIEL Date: 2022-11-03 11:55[facility] HospitalHEPATIC FUNCTION PANELon 03-24-0646Reiknuq [Mass/Vol]3.9 g/dL Normal3.5-5.0[facility] CenterComment on above: Performed By: #### MGO, HFP, CHM7 #### [facility] (DEFAULT) [address] [place] [address] 94165BKK [Catalytic activity/Vol]49 U/HVprwfo54-276LmvrDayton Va Medical CenterComment on above:Performed By: #### MGO, HFP, CHM7 #### [facility] (DEFAULT) [address] [place] [address] 41880YHK [Catalytic activity/Vol]8 U/GCss85-51JfgqDayton Va Medical CenterComment on above:Performed By: #### MGO, HFP, CHM7 #### [facility] (DEFAULT) [address] [place] [address] 48620SPE [Catalytic activity/Vol]14 U/DTycgrh50-86AfjsDayton Va Medical CenterComment on above:Performed By: #### MGO, HFP, CHM7 #### [facility] (DEFAULT) [address] [place] [address] 94212Zdsfcwirc [Mass/Vol]0.6 mg/dLNormal<1.5Day[facility] Va Medical CenterComment on above:Performed By: #### MGO, HFP, CHM7 #### [facility] (DEFAULT) [address] [place] [address] 51020Gvpbgjcxl.indirect [Mass/Vol]0.1 mg/dLNormal<0.3[facility] Medical CenterComment on above:Performed By: #### MGO, HFP, CHM7 #### [facility] (DEFAULT) [address] [place] [address] 89119Dshhdio [Mass/Vol]6.8 g/dLNormal6.4-8.3[facility] Medical CenterComment on above:Performed By: #### MGO, HFP, CHM7 #### [facility] (DEFAULT) [address] [place] [address] 80908LVEVPLP, WHOLE BLOODon 30-49-0716Twbwwpa, Whole Blood1.1 mmol/LNormal0.5-1.6[facility] Medical CenterComment on above: Performed By: #### BGLACT #### [facility] (DEFAULT) [address] [place] [address] 58967LCLQMGxu 49-53-6368Gpchul [Catalytic activity/Vol]13 U/LNormal 11-82Day[facility] Va Medical CenterComment on above:Performed By: #### MGLucila, ARCHIE, CHM7 #### [facility] (DEFAULT) [address] [place] [address] 70531XIJFKVHHBcm 78-63-0209Hwdvdxrzv [Mass/Vol]2.0 mg/dLNormal 1.6-2.6[facility] Medical CenterComment on above:Performed By: #### MGO, HFP, CHM7 #### [facility] (DEFAULT) [address] [place] [address] 59599VFXVCTNWX, INORGANICon 78-45-6584Dqgunnkxrzg6.3 mg/dLNormal 2.2-4.6[facility] Medical CenterComment on above:Performed By: #### MGO, HFP, CHM7 #### [facility] (DEFAULT) [address] [place] [address] 34773FNXW 14(COMP METB)on 33-70-9728Cdpjser [Mass/Vol]3.4 g/dL Normal3.4-5.0[facility] Community HospitalComment on above:Performed By: #### CMP #### [facility] [address] [place] [address] Cipriano PattonAlbumin/Globulin [Mass ratio]1.0 {ratio}NormalThe [facility]rville HospitalComment on above:Performed By: #### CMP #### [facility] [address] [place] [address] Dr. Cipriano CorralesP [Catalytic activity/Vol]53 U/OUwvxpd24-312Ojv [facility] HospitalComment on above:Performed By: #### CMP #### [facility] [address] [place] [address] Dr. Cipriano Cordero [Catalytic activity/Vol]13 U/LCritically upu75-73Itk [facility] HospitalComment on above:Performed By: #### CMP #### [facility] [address] [place] [address] Dr. Cipriano Bradyon gap [Moles/Vol]9.3 mmol/LNormalThe [facility] HospitalComment on above:Performed By: #### CMP #### [facility] [address] [place] [address] Dr. Cipriano PattonAST [Catalytic activity/Vol]24 U/IUwjwlc25-09Mmn [facility] HospitalComment on above:Performed By: #### CMP #### [facility] [address] [place] [address] Dr. Cipriano PattonBilirubin [Mass/Vol]0.5 mg/dLNormal0.2-1.0The [facility] Comment on above:Performed By: #### CMP #### [facility] [address] [place] [address] Dr. Cipriano PattonCalcium [Mass/Vol]9.2 mg/dLNormal8.5-10.1The [facility] Comment on above:Performed By: #### CMP #### [facility] [address] [place] [address] Dr. Cipriano PattonChloride [Moles/Vol]105 mmol/WFfzfig77-657Ccl [facility] Comment on above:Performed By: #### CMP #### [facility] [address] [place] [address] Dr. Cipriano PattonCO2 [Moles/Vol]30.4 mmol/YIxzeye51.0-32.0[facility] Comment on above:Performed By: #### CMP #### [facility] [address] [place] [address] Dr. Cipriano PattonCreatinine [Mass/Vol]1.02 mg/dLNormal0.70-1.30[facility] Community HospitalComment on above:Performed By: #### CMP #### [facility] [address] [address] [address] Cipriano ColeGFR-AF MALIAN>60Normal>=60The [facility] HospitalComment on above:Performed By: #### CMP #### [facility] [address] [place] [address] Dr. Cipriano ColeGFR-NON AF MALIAN>60Normal>=60H[facility] Community HospitalComment on above:Performed By: #### CMP #### [facility] [address] [place] [address] Dr. Cipriano PattonGlobulin (S) [Mass/Vol]3.3 g/dLNormalThe [facility] HospitalComment on above:Performed By: #### CMP #### [facility] [address] [place] [address] Dr. Cipriano PattonGlucose [Mass/Vol]92 mg/sCJvqnww03-736CgcHocking Valley Community Hospital Comment on above:Performed By: #### CMP #### [facility] [address] [place] [address] Dr. Cipriano PattonPotassium [Moles/Vol]4.7 mmol/LNormal3.5-5.1[facility] Comment on above:Performed By: #### CMP #### [facility] [address] [place] [address] Dr. Cipriano PattonProtein [Mass/Vol]6.7 g/dLNormal6.4-8.2[facility] Comment on above:Performed By: #### CMP #### [facility] [address] [place] [address] Dr. Cipriano PattonSodium [Moles/Vol]140 mmol/DBpovve406-900QkbHocking Valley Community Hospital Comment on above:Performed By: #### CMP #### [facility] [address] [address] [address] Cipriano PattonUrea nitrogen [Mass/Vol]18.0 mg/dLNormal7.0-18.0The [facility] HospitalComment on above:Performed By: #### CMP #### [facility] [address] [address] [address] Cipriano PattonUrea nitrogen/Creatinine [Mass ratio]17.6 mg/mgNormalThe [facility] HospitalComment on above:Performed By: #### CMP #### [facility] [address] [address] [address] Cipriano PattonURINALYSISon 21-24-4627Oxkcknbtqg (U)ClearNormalCDoctors HospitalComment on above:Performed By: #### URIN #### [facility] (DEFAULT) [address] [address]HkfndrqdRYDLZAMcktfyPPEIQMQjfhDayton Va Medical CenterComment on above:Performed By: #### URIN #### [facility] (DEFAULT) [address] [address]Spplp UrineModerateAbnoWestern Reserve HospitalComment on above:Performed By: #### URIN #### [facility] (DEFAULT) [address] [address]Tnqkh (U)YellowNormalYellowDayton Va Medical CenterComment on above:Performed By: #### URIN #### [facility] (DEFAULT) [address] [address]Tfckodr Ql (U)NegativeNormalNegOhio State University Wexner Medical CenterComment on above:Performed By: #### URIN #### [facility] (DEFAULT) [address] [address]Xwrqguf Ql (U)TraceAbnormalNegOhio State University Wexner Medical CenterComment on above:Performed By: #### URIN #### [facility] (DEFAULT) [address] [place] [address] 40532Vdgwcpovm esterase Test strip Ql (U)NegativeNormalNegativeDayton Va Medical CenterComment on above:Performed By: #### URIN #### [facility] (DEFAULT) [address] [place] [address] 12215Hxjqydfp UrineNegativeNormalNegativeDayton Va Medical CenterComment on above:Performed By: #### URIN #### [facility] (DEFAULT) [address] [place] [address] 47340oK (U)5.5 [pH]Normal5.0-7.0[facility] Medical CenterComment on above:Performed By: #### URIN #### [facility] (DEFAULT) [address] [place] [address] 716[address]Rezqnqc UrineNegativeNormalNegOhio State University Wexner Medical CenterComment on above:Performed By: #### URIN #### [facility] (DEFAULT) [address] [place] [address] 55279YMY Vooln4-1Pavonwga1-9LfyvDayton Va Medical CenterComment on above:Performed By: #### URIN #### [facility] (DEFAULT) [address] [place] [address] 01843Xzkowgqa Beryl Urine<=Normal>1.001-<1.035Day[facility] Va Medical CenterComment on above:Performed By: #### URIN #### [facility] (DEFAULT) [address] [place] [address] 90095Fcdbcjrg/Epithelial Cells1/hpf = 1+Normal1/hpf = 1+, 2-5/hpf = 2+, 0/hpf = 0+, ABSENTDayton Va Medical CenterComment on above:Performed By: #### URIN #### [facility] (DEFAULT) [address] [place] [address] 03465Mchzwaxzqteh Urine0.2 E.U./dLNormal0.2 E.U/dL, 1.0 E.U/dLDayton Va Medical CenterComment on above:Performed By: #### URIN #### [facility] (DEFAULT) [address] [place] [address] 64699SRJ Odfye5-1Ujdegg8-3WiovDayton Va Medical CenterComment on above:Performed By: #### URIN #### [facility] (DEFAULT) [address] [place] [address] 34789CQTVX CULTUREon 09-91-2818Ialynhzb identified Cx Nom (U)No significant growth. Routine cultures are evaluated for significant uro-pathogens >=10,000 CFU/mLNormalDayton Va Medical CenterComment on above:Order Comment: For indwelling catheters, specimen collection is acceptable on catheter day 1 and 2 only. Jauregui top vacutainer. Urine must be to the fill line to process (4mls). If minimum volume, sendurine in a yellow top vacutainer tube.Performed By: #### UR #### [facility] (DEFAULT) [address] [place] [address] 27767VC ABD FLAT UP_PA Lobo 74-15-1553JK ABD FLAT UP_PA CHEXAM: XR ABD FLAT UP_PA CH 11/03/2022. HISTORY: [...] Electronically authenticated by: MANAV PARK Date: 2022-11-03 09:52[facility] Community HospitalGLYCOHEMOGLOBIN A1Con [id number] RECOMMENDATIONSEE BELOW NormalThe [facility] HospitalComcorewell health william [facility] on above:Result Comment: ADA RECOMMENDED LIMIT 4.0 - 6.0 ADA THERAPEUTIC TARGET < 7.0 ACTION SUGGESTED > 7.0Performed By: #### A1C #### [facility] [address] [address] [address] Cipriano PattonGlucose [Mass/Vol]111 mg/dLNoThe Surgical Hospital at SouthwoodsComment on above:Performed By: #### A1C #### [facility] [address] [address] [address] Cipriano PattonHbA1c (Bld) [Mass fraction]5.5 %Normal4.5-6.2The [facility] HospitalComment on above:Performed By: #### A1C #### [facility] [address] [address] [address] Cipriano PattonPROF CHEM 8 (BAS METB)on 20-99-8185Etlvy gap [Moles/Vol]9.4 mmol/LNormalThe [facility] HospitalComment on above:Performed By: #### BMP ####[facility] [address] [address]DrWesley PattonCalcium [Mass/Vol]9.2 mg/dLNormal8.5-10.1The [facility] HospitalComment on above:Performed By: #### BMP ####[facility] [address] [address]DrVanessa ChangChloride [Moles/Vol]103 mmol/LNormal 98-107The [facility] HospitalComment on above:Performed By: #### BMP ####[facility] [address] [address]DrVanessa ChangCO2 [Moles/Vol]30.6 mmol/ZVrrkss27.0-32.0The [facility] HospitalComment on above: Performed By: #### BMP ####[facility] [address] [address]Dr.Yilan ChangCreatinine [Mass/Vol]1.06 mg/dLNormal 0.70-1.30The [facility] HospitalComcorewell health william [facility] hospital on above:Performed By: #### BMP ####[facility] [address] [address]Dr. Yilan ChangEGFR-AF MALIAN>60Normal>=60The [facility] HospitalComment on above: Performed By: #### BMP ####[facility] [address] [place], [place] [address]Dr.Yilan ChangEGFR-NON AF MALIAN>60Normal>=60The [facility] HospitalComment on above:Performed By: #### BMP ####[facility] [address] [place], [place] [address]Dr.Yilan ChangGlucose [Mass/Vol]96 mg/mEAuutph88-343Ylh [facility] HospitalComment on above:Performed By: #### BMP ####[facility] [address]dsgtais[address] [place], [place] [address]Dr.Yilan ChangPotassium [Moles/Vol]5.0 mmol/LNormal3.5-5.1The [facility] HospitalComment on above:Performed By: #### BMP ####[facility] [address] [place], [place] [address]Dr.Yilan ChangSodium [Moles/Vol]138 mmol/XSuhopi224-703Qug [facility] HospitalComment on above: Performed By: #### BMP ####[facility] [address] [place], [place] [address]Dr.Yilan ChangUrea nitrogen [Mass/Vol]29.0 mg/dL Critically high7.0-18.0The [facility] HospitalComment on above:Performed By: #### BMP ####[facility] [address] [place], [place] [address]Dr. Yilan ChangUrea nitrogen/Creatinine [Mass ratio]27.4 mg/mgNormalThe [facility] HospitalComcorewell health [facility] on above:Performed By: #### BMP ####[facility] [address] [address]Dr.Yilan Carroll AUTO DIFFon 63-35-7876ACBH #0.0 103/ulNormal0.0-0.1The [facility] HospitalComment on above: Performed By: #### CBC #### [facility] [address] [address] [address] Cipriano PattonBasophils/100 WBC (Bld)0.5 %Normal0.2-2.0The [facility] Comment on above:Performed By: #### CBC #### [facility] [address] [address] [address] Cipriano Rahman #0.4 103/ulNormal0.0-0.7The [facility] HospitalComment on above: Performed By: #### CBC #### [facility] [address] [address] [address] Cipriano Coleosinophils/100 WBC (Bld)6.9 %Normal0.9-7.0The [facility] Comment on above:Performed By: #### CBC #### [facility] [address] [address] [address] Cipriano Colerythrocyte distribution width (RBC) [Ratio]13.5 %Ntxduv59.0-15.0 The [facility] HospitalComment on above:Performed By: #### CBC #### [facility] [address] [address] [address] Cipriano PattonHematocrit (Bld) [Volume fraction]42.5 %Ybmeqb52.0-54.0The [facility] HospitalComment on above:Performed By: #### CBC #### [facility] [address] [address] [address] Cipriano PattonHemoglobin (Bld) [Mass/Vol]13.7 g/dLCritically low14.0-18.0The [facility] HospitalComment on above:Performed By: #### CBC #### [facility] [address] [address] [address] Cipriano Braxton #0.02 10e3/ulNormal0.00-0.03The [facility] on above:Performed By: #### CBC #### [facility] [address] [address] [address] Cipriano Braxton %0.4 %Normal0.0-0.5The [facility] on above: Performed By: #### CBC #### [facility] [address] [address] [address] Cipriano Tate #1.3 103/ulNormal1.2-3.8The [facility] HospitalComcorewell health [facility] on above:Performed By: #### CBC #### [facility] [address] [place] [address] Dr. Cipriano Penahocytes/100 WBC (Bld)23.7 %Olxsxy11.5-60.0The [facility] HospitalComcorewell health [facility] on above:Performed By: #### CBC #### [facility] [address] [place] [address] Dr. Cipriano Webb DIFF REQNONormalThe [facility] HospitalComment on above: Performed By: #### CBC #### [facility] [address] [place] [address] Dr. Cipriano Iqbal (RBC) [Entitic mass]29.4 dfOvqtfv90.9-34.0The [facility] on above:Performed By: #### CBC #### [facility] [address] [place] [address] Dr. Cipriano Ceja (RBC) [Mass/Vol]32.2 g/aWCnruaj56.9-35.2The [facility] Gal[facility] Hospitalment on above:Performed By: #### CBC #### [facility] [address] [place] [address] Dr. Cipriano Ceja (RBC) [Entitic vol]91.2 rYEovwne91.0-94.0[facility] on above:Performed By: #### CBC #### [facility] [address] [place] [address] Dr. Cipriano Hines #0.9 103/ulCritically high0.3-0.8The [facility] Comment on above:Performed By: #### CBC #### [facility] [address] [address] [address] Cipriano Palacioocytes/100 WBC (Bld)15.8 %Critically high1.7-12.0The [facility] HospitalComment on above:Performed By: #### CBC #### [facility] [address] [place] [address] Dr. Cipriano Ayon #2.9 103/ulNormal1.4-6.5The [facility] HospitalComment on above:Performed By: #### CBC #### [facility] [address] [place] [address] Dr. Cipriano Ferrellutrophils/100 WBC (Bld)52.7 %Mzqkiz64.0-75.0The [facility] HospitalComment on above:Performed By: #### CBC #### [facility] [address] [place] [address] Dr. Cipriano PattonPlatelet mean volume (Bld) [Entitic vol]9.0 fLCritically low 9.5-13.5The [facility] HospitalComment on above:Performed By: #### CBC #### [facility] [address] [place] [address] Dr. Cipriano PattonPLT211 103/bhNwmisb646-929Dim [facility] HospitalComment on above: Performed By: #### CBC #### [facility] [address] [place] [address] Dr. Cipriano PattonRBC4.66 106/ulCritically low4.70-6.10The [facility] HospitalComment on above:Performed By: #### CBC #### [facility] [address] [place] [address] Dr. Cipriano PattonWBC5.5 103/ulNormal4.0-11.0The [facility] HospitalComment on above: Performed By: #### CBC #### [facility] [address] [place] [address] Dr. Cipriano PattonPROF CHEM 8 (BAS METB)on 85-30-0373Pzfzp gap [Moles/Vol]10.7 mmol/LNormalThe [facility] HospitalComment on above:Performed By: #### BMP #### [facility] [address] [place] [address] Dr. Cipriano PattonCalcium [Mass/Vol]8.5 mg/dLNormal8.5-10.1[facility] Comment on above:Performed By: #### BMP #### [facility] [address] [address] [address] Cipriano PattonChloride [Moles/Vol]105 mmol/KLotufq26-701Oma [facility] Comment on above:Performed By: #### BMP #### [facility] [address] [place] [address] Dr. Cipriano PattonCO2 [Moles/Vol]29.4 mmol/IVuhkrx91.0-32.0[facility] Comment on above:Performed By: #### BMP #### [facility] [address] [place] [address] Dr. Cipriano PattonCreatinine [Mass/Vol]0.90 mg/dLNormal0.70-1.30The [facility] HospitalComment on above:Performed By: #### BMP #### [facility] [address] [place] [address] Dr. Cipriano ColeGFR-AF MALIAN>60Normal>=60The [facility] HospitalComment on above:Performed By: #### BMP #### [facility] [address] [place] [address] Dr. Cipriano ColeGFR-NON AF MALIAN>60Normal>=60The [facility] HospitalComment on above:Performed By: #### BMP #### [facility] [address] [address] [address] Cipriano PattonGlucose [Mass/Vol]82 mg/fTEvyduo51-185WxtHocking Valley Community Hospital Comment on above:Performed By: #### BMP #### [facility] [address] [place] [address] Dr. Cipriano PattonPotassium [Moles/Vol]4.1 mmol/LNormal3.5-5.1The [facility] Comment on above:Performed By: #### BMP #### [facility] [address] [address] [address] Cipriano PattonSodium [Moles/Vol]141 mmol/MNczbvy188-522Wfo [facility] Comment on above:Performed By: #### BMP #### [facility] [address] [address] [address] Cipriano PattonUrea nitrogen [Mass/Vol]16.0 mg/dLNormal7.0-18.0The [facility] HospitalComment on above:Performed By: #### BMP #### [facility] [address] [address] [address] Cipriano Callejas nitrogen/Creatinine [Mass ratio]17.8 mg/mgNormalThe [facility] HospitalComment on above:Performed By: #### BMP #### [facility] [address] [address] [address] Cipriano PattonCovid-19 PCR (CVDTBH)on 07-55-3097KJTL-CoV-2 (COVID-19) RNA CAIT+probe Ql (Unsp spec)DetectedCritically abnormalNOT DETECTEDThe [facility] HospitalComment on above:Result Comment: This test is not yet approved or cleared by the [place] FDA. When there are no FDA-approved or cleared tests available, and other criteria are met, FDA can make tests available under an emergency access mechanism called an Emergency Use Authorization (EUA). The EUA for this test is supported by the [place] of Health and Human Service's (HHS's) declaration [...] no longer be used). Performed By: #### CVDTBH #### [facility] [address] [address] [address] Cipriano PattonVC COMP CONSULTATIONon 88-15-1024ZR COMP CONSULTATIONPatient: KENNEDY KONG Exam Date: 03/28/2022 : 1935 Gender:M Ordering : DR LESA ESTRELLA D.O. Admission #: [id number] Family : Order #: [id number] CLICK HERE TO VIEW EXAM RADIOLOGY REPORT [...] hours. The patient is a wolff in [facility]. The patient denies any [...] by: Aubrey Vee MD on 03/28/2022 at 10:14[facility] HospitalVC VENOUS REFLUX ROBERTO [facility] [id number] VENOUS REFLUX ROBERTO TPatient: KENNEDY KONG Exam Date: 03/28/2022 : 1935 Gender:M Ordering : DR LESA ESTRELLA D.O. Admission #: [id number] Family : Order #: [id number] CLICK HERE TO VIEW EXAM RADIOLOGY REPORT [...] compression in area of thrombus Flow: Normal Wildlife Removal Specialist: Dist/med calf 2.2mm, 0.7s reflux; mid/med calf [...] or chronic thrombus Compressibility: Normal Flow: Normal Wildlife Removal Specialist: Mid/med 2.6mm, no reflux; dist/med 3.3mm, no reflux Tech Note: Patent varicose vein prox/med 2.3mm, without reflux. Varicose vein mid/ant 2.7mm, without reflux. Hypoechoic avascular structure lt pop fossa that measures 3.1 x 4.2 x 0.9 cm CONCLUSION: 1. Madk-ex-ietdwgxv right great saphenous vein venous insufficiency without associated dilatation 2. Small bilateral incompetent varicose veins 3. 4.2 cm left popliteal cyst Dictated by: Aubrey Vee MD on 03/28/2022 at 09:23 Approved by: Aubrey Vee MD on 03/28/2022 at 09:26[facility] HospitalUS MILADIS DOP LEG LTon [id number] MILADIS DOP LEG LTEXAM: US MILADIS DOP LEG LT HISTORY: Left leg edema for 6 months on and off. COMPARISON: None. TECHNIQUE: Grayscale, color flow and duplex imaging is performed to the left lower extremity FINDINGS: The visualized left lower extremity venous systems exhibit normal flow, phasicity, augmentation, compressibility and waveforms. IMPRESSION: No visualized venous thrombus Electronically authenticated by: AUBREY CHEUNG Date: 2022-02-07 17:[address] [place], [place] [address]ANES Lisa [id number] POSTHNO ID: [id number] Author: Luigi Snyder Service: Anesthesiology Author Type: [...] 04, 2019 TIME: 3:21 PM PAGER/CONTACT #: [id number] Community HospitalANES PREOPon [id number] PREOPHNO ID: [id number] Author: Seymour Buenrostro Service: Anesthesiology Author Type: [...] mouth once daily. Inpatient medications reviewed in [facility]. I have interviewed and examined [...] 04, 2019 TIME: 2:13 PM PAGER/CONTACT #: [id number] HospitalHISTORY PHYSICALon [id number] PHYSICALHNO ID: [id number] Author: Avel Heath Service: Colorectal Author Type: [...] DATE: November 04, 2019 TIME: 1:08 PM PAGER:[facility] EDon [phone] EDHNO ID: [id number] Author: Elizabeth Patel RN Service: Nursing Author [...] None REFERRAL (RECOMMENDATION): None Electronically Signed By: [facility] EDHNO ID: [id number] Author: Harini Yusuf RN Service: ? Author [...] PROVIDED TO PATIENT: None REFERRAL (RECOMMENDATION): None GPBYTLI PROMICHELE ID: [id number] Author: Nathaly (Rn) JUSTIN Kraft Service: Nursing [...] Nathaly Kraft RN October 08, 2019 8:45 [id number] Patient:Kennedy Kong MRN: Height:5' 10 (1.778 m) Weight:170 [...] progress notes entered within the past 30 daysShaw HospitalABDOM 1 [facility] [id number] 1 [facility] Department of Radiology [address] [place] [id number] Patient Name: KENNEDY KONG : 1935 [...] , , , Ordering Provider - THERESA JIMÉNEZ , Exam: ABDOMEN 1 VW ABDOMEN [...] documentation Electronically signed by:Kaleb Perry. Transcribed by: [email or web address], User Resident: Electronically Signed by: KALEB PERRY @ 03/31/2019 12:59 [facility] HospitalComment on above:Order Comment: , THIS IS FOR A COLONOSCOPY FOR STRICTURE , Appointment Date: 03/31/2019 , Appointment Time: 8:30AM , THIS IS FOR A COLONOSCOPY FOR STRICTURE , Appointment Date: 03/31/2019 , Appointment Time: 8:30AM , , , Ordering Provider - THERESA JIMÉNEZ , Vital Signs Date TimeVital SignValuePerforming HtuoinkquZuwnuves45-14-6750 11:18-0400Body cander899.8 cmChrcitlalli Wagner DPM Work Phone: [facility] HospitalMqqelcvgso10-87-0140 11:18-0400Body mass index (BMI) [Ratio]25.4 kg/f3Ijlcgtqbxdr Bohach DPM Work Phone: [facility] HospitalVyefoppxxy43-44-4447 11:18-0400Body amukpc48.29 kgChrocael Wagner DPM Work Phone: [facility] HospitalDcktvqsnss55-21-7542 11:18-0400Diastolic blood mm[Hg]Reanna Wagner DPM Work Phone: [facility] HospitalXogxlcjcfl35-36-4946 11:18-0400Heart rate73 /min Reanna Wagner DPM Work Phone: [facility] HospitalGrtdbafucg98-61-7895 11:18-0400Systolic blood sqeepkzv291 mm[Hg]Reanna Wagner DPM Work Phone: [facility] HospitalLbiydoisnf24-80-5340 08:51-0400Body azavlv330.4 Seb Chaparro MD Work Phone: [facility]07-30-2025 08:51-0400Body mass index (BMI) [Ratio]29.28 kg/r7MldnbEugene Chaparro MD Work Phone: [facility]07-30-2025 08:51-0400Body temperature 97.11 [degF]Eugene Chaparro MD Work Phone: [facility]07-30-2025 08:51-0400Body .2 kgEugene Chaparro MD Work Phone: [facility]07-30-2025 08:51-0400Diastolic blood xeaokwna00 mm[Hg]Eugene Chaparro MD Work Phone: [facility]07-30-2025 08:51-0400Heart rate68 /min Eugene Chaparro MD Work Phone: [facility]07-30-2025 08:51-0400Respiratory rate 16 /minEugene Chaparro MD Work Phone: [facility]07-30-2025 08:51-5361JwJ4% (BldA) [Mass fraction]99 %Eugene Chaparro MD Work Phone: [facility]07-30-2025 08:51-0400Systolic blood skfmrpyg685 mm[Hg]Eugene Chaparro MD Work Phone: [facility]06-11-2025 08:20-0400Body dloafs763.8 cmTheodora Love FINISHER POLISHER-STITCHER SPECIAL MACHINE Work Phone: [facility]06-11-2025 08:20-0400 Body mass index (BMI) [Ratio]26.69 kg/e6RkaggTheodora Love FINISHER POLISHER-STITCHER SPECIAL MACHINE Work Phone: [facility]06-11-2025 08:20-0400 Body lvzulh32.37 kgTheodora Love APRN-STITCHER SPECIAL MACHINE Work Phone: [facility]06-11-2025 08:20-0400 Diastolic blood gvkvotoh43 mm[Hg]Theodora Love FINISHER POLISHER-STITCHER SPECIAL MACHINE Work Phone: [facility]06-11-2025 08:20-0400 Heart rate68 /Sabine Ivan FINISHER POLISHER-STITCHER SPECIAL MACHINE Work Phone: 1(715)832-07[facility]06-11-2025 08:20-0400 Systolic blood qcixfprd507 mm[Hg]Theodora Ivan FINISHER POLISHER-STITCHER SPECIAL MACHINE Work Phone: [facility]06-03-2025 10:04-0400 Body usfsig116.8 cmBenjamin Ball DO Work Phone: 1(735)073-[address] [place], [place] 5626506-03-2025 10:04-0400 Body mass index (BMI) [Ratio]27.1 kg/b7Bgjgdjfl Ball DO Work Phone: 1(400)[address]06-03-2025 10:04-0400 Body .95 kgBenjamin Ball DO Work Phone: 1(493)[address]06-03-2025 10:04-0400 Diastolic blood mm[Hg]Lesa Ball DO Work Phone: 1(735)599-[address] [place], [place] 5626506-03-2025 10:04-0400 Heart rate73 /minBenjamin Ball DO Work Phone: 1(451)096-[address] [place], [place] 5626506-03-2025 10:04-0400 Respiratory rate12 /minBenjamin Ball DO Work Phone: 1(359)846-[address] [place], [place] 5626506-03-2025 10:04-0400 Systolic blood enveiagz643 mm[Hg]Lesa Ball DO Work Phone: 1(197)[address]2025 13:32-0400 Body vdhzma732.8 cmTheodora Love FINISHER POLISHER-STITCHER SPECIAL MACHINE Work Phone: [facility]2025 13:32-0400 Body mass index (BMI) [Ratio]27.41 kg/x0UzglwTheodora Love FINISHER POLISHER-STITCHER SPECIAL MACHINE Work Phone: [facility]2025 13:32-0400 Body .64 kgTheodora Love FINISHER POLISHER-STITCHER SPECIAL MACHINE Work Phone: [facility]2025 13:32-0400 Diastolic blood sxqdxnem29 mm[Hg]Theodora Love FINISHER POLISHER-STITCHER SPECIAL MACHINE Work Phone: [facility]2025 13:32-0400 Heart rate72 /minDjoyce Love FINISHER POLISHER-STITCHER SPECIAL MACHINE Work Phone: [facility]2025 13:32-0400 Systolic blood mm[Hg]Theodora Love FINISHER POLISHER-STITCHER SPECIAL MACHINE Work Phone: [facility]04-11-2025 08:28-0400 Body mass index (BMI) [Ratio]26.86 kg/n1WpqrdEugene Chaparro MD Work Phone: [facility]04-11-2025 08:28-0400Body temperature 97.11 [degF]Eugene Chaparro MD Work Phone: [facility]04-11-2025 08:28-0400Body oddezt43.5 kgEuegne Chaparro MD Work Phone: [facility]04-11-2025 08:28-0400Diastolic blood oxasxwmm20 mm[Hg]Eugene Chaparro MD Work Phone: [facility]04-11-2025 08:28-0400Heart rate69 /min Eugene Chaparro MD Work Phone: [facility]04-11-2025 08:28-0400Respiratory rate 18 /minEugene Chaparro MD Work Phone: [facility]04-11-2025 08:28-5814DjY8% (BldA) [Mass fraction]100 %Eugene Chaparro MD Work Phone: [facility]04-11-2025 08:28-0400Systolic blood svajwpus245 mm[Hg]Eugene Chaparro MD Work Phone: [facility]03-21-2025 08:53-0400Body wubbhi965.8 Maris Dietrich MD Work Phone: 1(274)[address] [place], [place] 6527403-21-2025 08:53-0400 Body mass index (BMI) [Ratio]26.4 kg/x1NiprurjKylie Dietrich MD Work Phone: 1(322)[address] [place], [place] 6292603-21-2025 08:53-0400 Body hjwdko14.51 Dorcas Dietrich MD Work Phone: 1(035)[address] [place], [place] 6292603-21-2025 08:53-0400 Diastolic blood okeymoma36 mm[Hg]Kylie Dietrich MD Work Phone: 1(394)[address] [place], [place] 6292603-21-2025 08:53-0400 Heart rate75 /Bro Dietrich MD Work Phone: 1(279)[address] [place], [place] 6292603-21-2025 08:53-0400 Respiratory rate16 /Bro Dietrich MD Work Phone: 1(779)[address] [place], [place] 6292603-21-2025 08:53-0400 Systolic blood mm[Hg]Kylie Dietrich MD Work Phone: 1(721)[address] [place], [place] 6292602-18-2025 13:49-0500 Body bdoczs601.8 Maris Dietrich MD Work Phone: 1(860)[address] [place], [place] 6292602-18-2025 13:49-0500 Body mass index (BMI) [Ratio]26.5 kg/v9XqcddyyKylie Dietrich MD Work Phone: 1(944)[address] [place], [place] 6292602-18-2025 13:49-0500 Body .91 Dorcas Dietrich MD Work Phone: 1(586)[address] [place], [place] 6292602-18-2025 13:49-0500 Diastolic blood mm[Hg]Kylie Dietrich MD Work Phone: 1(812)[address] [place], [place] 6292602-18-2025 13:49-0500 Heart rate78 /Bro Dietrich MD Work Phone: 1(993)[address] [place], [place] 6292602-18-2025 13:49-0500 Respiratory rate12 /minKylie Dietrich MD Work Phone: [facility]02-18-2025 13:49-0500 Systolic blood ocqhtdye779 mm[Hg]Kylie Dietrich MD Work Phone: [facility]01-08-2025 10:26-0500 Body tdlcnu204.4 Seb Chaparro MD Work Phone: [facility]01-08-2025 10:26-0500Body mass index (BMI) [Ratio]26.39 kg/l8UgptlEugene Chaparro MD Work Phone: [facility]01-08-2025 10:26-0500Body temperature 97.7 [degF]Eugene Chaparro MD Work Phone: [facility]01-08-2025 10:26-0500Body eukfcb38 kg Eugene Chaparro MD Work Phone: [facility]01-08-2025 10:26-0500Diastolic blood zbnvtfem24 mm[Hg]Eugene Chaparro MD Work Phone: [facility]01-08-2025 10:26-0500Heart rate73 /min Eugene Chaparro MD Work Phone: [facility]01-08-2025 10:26-0500Respiratory rate 16 /minEugene Chaparro MD Work Phone: [facility]01-08-2025 10:26-6883RtZ9% (BldA) [Mass fraction]99 %Eugene Chaparro MD Work Phone: [facility]01-08-2025 10:26-0500Systolic blood hppomwgg111 mm[Hg]Eugene Chaparro MD Work Phone: [facility]01-08-2025 10:05-0500Body mass index (BMI) [Ratio]26.39 kg/m2DARNELL Grajeda MD Work Phone: [facility] HospitalNyrlyu92-96-3982 10:05-0500Body temperature 97.7 [degF]DARNELL Grajeda MD Work Phone: 1(358)396-[address] [place], [place] 5309301-08-2025 10:05-0500Body dralnq95 kg DARNELL Grajeda MD Work Phone: 1(262)263-[address] [place], [place] 5309301-08-2025 10:05-0500Diastolic blood npojiobv70 mm[Hg]DARNELL Grajeda MD Work Phone: 1(045)216-[address] [place], [place] 9749701-08-2025 10:05-0500Heart rate73 /min DARNELL Grajeda MD Work Phone: 1(199)683-[address] [place], [place] 5309301-08-2025 10:05-0500Respiratory rate 16 /RamoDARNELL Grajeda MD Work Phone: 1(298)409-[address] [place], [place] 9749701-08-2025 10:05-3771DtX8% (BldA) [Mass fraction]99 %DARNELL Grajeda MD Work Phone: 1(835)383-[address] [place], [place] 5309301-08-2025 10:05-0500Systolic blood hrlvuoky098 mm[Hg]DARNELL Grajeda MD Work Phone: 1(409)740-[address] [place], [place] 5309312-02-2024 10:10-0500Body mripjl532.8 Maris Dietrich MD Work Phone: 1(492)[address]12-02-2024 10:10-0500 Body mass index (BMI) [Ratio]26.6 kg/q6JvgraflKylie Dietrich MD Work Phone: 1(619)969-[address] [place], [place] 3394412-02-2024 10:10-0500 Body ywoopv86.36 kgKylie Dietrich MD Work Phone: [facility]12-02-2024 10:10-0500 Diastolic blood upgezlje84 mm[Hg]Kylie Dietrich MD Work Phone: 1(469)279-[address] [place], [place] 3394412-02-2024 10:10-0500 Heart rate66 /minKylie Dietrich MD Work Phone: 0(824)250-[address] [place], [place] 3394412-02-2024 10:10-0500 Respiratory rate12 /minKylie Dietrich MD Work Phone: [facility]12-02-2024 10:10-0500 Systolic blood omzstles985 mm[Hg]Kylie Dietrich MD Work Phone: [facility]10-01-2024 14:03-0400 Body .34 cmMartin [facility]10-01-2024 14:03-0400Body mass index (BMI) [Ratio]25.2 kg/a8ToadbmpejMartin Memorial Hospital10-01-2024 14:03-0400Body idpvlp80 kgMartin [facility] Hospital09-26-2024 08:05-0400 Blood Pressure LocationAlysha Galea [facility]09-26-2024 08:05-0400Body rwavnduloqa32.6 [degF]Niki Galea [facility]09-26-2024 08:05-0400Diastolic blood jkvvimqo23 mm[Hg]Niki Galea [facility]09-26-2024 08:05-0400Heart rate64 /minAlysha Galea [facility]09-26-2024 08:05-0400Respiratory rate16 /minAlysha Galea [facility]09-26-2024 08:05-0400Systolic blood komebazu764 mm[Hg]Niki Galea [facility]09-11-2024 10:10-0400Diastolic blood qlultuxo58 mm[Hg]Eugene Chaparro MD Work Phone: [address] [place], [place] [address]Comment on above:kimiofc82-02-0443 10:10-0400Systolic blood mm[Hg]Eugene Chaparro MD Work Phone: [facility] on above:sqnnpma10-46-6436 10:02-0400Body qlewqc701.4 Seb Chaparro MD Work Phone: [facility]09-11-2024 10:02-0400Body mass index (BMI) [Ratio]26.71 kg/v5KbyolEugene Chaparro MD Work Phone: [facility]09-11-2024 10:02-0400Body temperature 97.2 [degF]Eugene Chaparro MD Work Phone: [facility]09-11-2024 10:02-0400Body kg Eugene Chaparro MD Work Phone: [facility]09-11-2024 10:02-0400Heart rate67 /min Eugene Chaparro MD Work Phone: [facility]09-11-2024 10:02-0400Respiratory rate 16 /minEugene Chaparro MD Work Phone: [facility]09-11-2024 10:02-6902LtG0% (BldA) [Mass fraction]98 %Eugene Chaparro MD Work Phone: [facility]08-19-2024 11:54-0400Diastolic blood ntuuljwq49 mm[Hg][facility]08-19-2024 11:54-0400Heart rate69 /[facility]08-19-2024 11:54-0400Respiratory rate12 /[facility]08-19-2024 11:54-0400Systolic blood azawnysl736 mm[Hg][facility]06-05-2024 13:14-0400Body gfynng252.4 Seb Chaparro MD Work Phone: [facility]06-05-2024 13:14-0400Body mass index (BMI) [Ratio]26.24 kg/t9MwrfdEugene Chaparro MD Work Phone: [facility]06-05-2024 13:14-0400Body temperature 97.2 [degF]Eugene Chaparro MD Work Phone: [facility]06-05-2024 13:14-0400Body myyzxf94.5 kgEugene Chaparro MD Work Phone: [facility]06-05-2024 13:14-0400Diastolic blood nlfmboti63 mm[Hg]Eugene Chaparro MD Work Phone: [facility]06-05-2024 13:14-0400Heart rate70 /min Eugene Chaparro MD Work Phone: [facility]06-05-2024 13:14-0400Respiratory rate 16 /minEugene Chaparro MD Work Phone: [facility]06-05-2024 13:14-0641CxD6% (BldA) [Mass fraction]96 %Eugene Chaparro MD Work Phone: [facility]06-05-2024 13:14-0400Systolic blood oupkwlmh405 mm[Hg]Eugene Chaparro MD Work Phone: [facility]05-30-2024 08:41-0400Body hngahd124.34 cmMartin [facility]05-30-2024 08:41-0400Body mass index (BMI) [Ratio]25.4 kg/z2WtaykrlpaMartin Memorial Hospital05-30-2024 08:41-0400Body vntyxw18.72 kgMartin [facility]05-30-2024 08:41-0400Diastolic blood llyuwvoq55 mm[Hg][facility]05-30-2024 08:41-0400 Heart rate81 /[facility]05-30-2024 08:41-0400 Respiratory rate12 /[facility]05-30-2024 08:41-0400 Systolic blood yavilass34 mm[Hg][facility]05-13-2024 08:46-0400Body mass index (BMI) [Ratio]26.46 kg/m2DARNELL Grajeda MD Work Phone: [facility]05-13-2024 08:46-0400Body temperature 97.7 [degF]DARNELL Grajeda MD Work Phone: [facility]05-13-2024 08:46-0400Body cuibon17.2 kgNA Michael CHOI Work Phone: [facility]05-13-2024 08:46-0400Diastolic blood ddjtlumh39 mm[Hg]DARNELL Grajeda MD Work Phone: [facility]05-13-2024 08:46-0400Heart rate63 /min DARNELL Grajeda MD Work Phone: [facility]05-13-2024 08:46-0400Respiratory rate 16 /RamoDARNELL Grajeda MD Work Phone: [facility]05-13-2024 08:46-3614NuU8% (BldA) [Mass fraction]99 %DARNELL Grajeda MD Work Phone: [facility]05-13-2024 08:46-0400Systolic blood huqdztxi005 mm[Hg]DARNELL Grajeda MD Work Phone: [facility]05-08-2024 09:55-0400Body nbrzyp892.4 Seb Chaparro MD Work Phone: [facility]05-08-2024 09:55-0400Body mass index (BMI) [Ratio]26.42 kg/n2QlicsEugene Chaparro MD Work Phone: [facility]05-08-2024 09:55-0400Body temperature 97.81 [degF]Eugene Chaparro MD Work Phone: [facility]05-08-2024 09:55-0400Body rihbgw90.1 kgVivek Abhyankar MD Work Phone: [facility]05-08-2024 09:55-0400Diastolic blood mxnoszqv34 mm[Hg]Eugene Chaparro MD Work Phone: [facility]05-08-2024 09:55-0400Heart rate70 /min Eugene Chaparro MD Work Phone: [facility]05-08-2024 09:55-0400Respiratory rate 16 /minEugene Chaparro MD Work Phone: [facility]05-08-2024 09:55-8694RpU0% (BldA) [Mass fraction]98 %Eugene Chaparro MD Work Phone: [facility]05-08-2024 09:55-0400Systolic blood rizyshco447 mm[Hg]Eugene Chaparro MD Work Phone: [facility]05-06-2024 09:38-0400Body mass index (BMI) [Ratio]26.68 kg/m2DARNELL Grajeda MD Work Phone: [facility]05-06-2024 09:38-0400Body temperature 97.3 [degF]DARNELL Grajeda MD Work Phone: [facility]05-06-2024 09:38-0400Body lcowmi76.9 kgDARNELL Grajeda MD Work Phone: [facility]05-06-2024 09:38-0400Diastolic blood ibflsftw92 mm[Hg]DARNELL Grajeda MD Work Phone: [facility]05-06-2024 09:38-0400Heart rate69 /min DARNELL Grajeda MD Work Phone: [facility]05-06-2024 09:38-0400Respiratory rate 16 /RamoDARNELL Grajeda MD Work Phone: [facility]05-06-2024 09:38-8133IgS5% (BldA) [Mass fraction]99 %NA Michael CHOI Work Phone: [facility]05-06-2024 09:38-0400Systolic blood ikmzrpcp635 mm[Hg]NA Michael CHOI Work Phone: [facility]05-03-2024 09:39-0400Body temperature 97.5 [degF]Lab/[place] Work Phone: [facility]05-03-2024 09:39-0400Diastolic blood yzgzymwq22 mm[Hg]Lab/[facility] Work Phone: [facility]05-03-2024 09:39-0400Heart rate56 /min Lab/[facility] Work Phone: [facility]05-03-2024 09:39-0400Respiratory rate 18 /minLab/[facility] Work Phone: [facility]05-03-2024 09:39-0657WyX3% (BldA) [Mass fraction]98 %Lab/[facility] Work Phone: [facility]05-03-2024 09:39-0400Systolic blood hqoxvlve414 mm[Hg]Lab/[facility] Work Phone: [facility]05-03-2024 09:36-0400Body temperature 97.5 [degF]Eugene Chaparro MD Work Phone: [facility]05-03-2024 09:36-0400Diastolic blood ousncpjc73 mm[Hg]Eugene Chaparro MD Work Phone: [facility]05-03-2024 09:36-0400Heart rate56 /min Eugene Chaparro MD Work Phone: [facility]05-03-2024 09:36-0400Respiratory rate 18 /minEugene Chaparro MD Work Phone: [facility]05-03-2024 09:36-4421AeF1% (BldA) [Mass fraction]98 %Eugene Chaparro MD Work Phone: [facility]05-03-2024 09:36-0400Systolic blood txqqzeui011 mm[Hg]Eugene Chaparro MD Work Phone: [facility]05-01-2024 09:40-0400Body temperature 98.01 [degF]Chair Shila Work Phone: 1(157)042-68[facility]05-01-2024 09:40-0400Diastolic blood oobcuufx43 mm[Hg]Chair Shila Work Phone: 1(702)024-91[facility]05-01-2024 09:40-0400Heart rate63 /min Chair Shila Work Phone: 1(820)781-18[facility]05-01-2024 09:40-0400Respiratory rate 18 /minChair Shila Work Phone: 1(882)487-76[facility]05-01-2024 09:40-4441HpR2% (BldA) [Mass fraction]98 %Chair Shila Work Phone: 1(555)951-54[facility]05-01-2024 09:40-0400Systolic blood uifzaeln173 mm[Hg]Chair Shila Work Phone: 1(656)362-11[facility]05-01-2024 09:33-0400Body vaiany156.4 cmChair Shila Work Phone: 1([phone])[phone] HospitalComment on above:previously verified. 02-19-2024 09:33-0400Body mass index (BMI) [Ratio]26.33 kg/d9Adhku [place] Work Phone: 1(357)568-64[facility]05-01-2024 09:33-0400Body jvawhs03.8 kgChair Duplin Work Phone: 1(503)619-26[facility] HospitalComment on above:with boots on 02-17-2024 09:32-0400Body mass index (BMI) [Ratio]26.58 kg/m2DARNELL Grajeda MD Work Phone: [place] [address]-29-2024 09:32-0400Body temperature 97.2 [degF]DARNELL Grajeda MD Work Phone: [place] [address]-29-2024 09:32-0400Body lyhhfn67.6 kgNA Michael CHOI Work Phone: [place] [address]-29-2024 09:32-0400Diastolic blood bgkmumkr60 mm[Hg]DARNELL Grajeda MD Work Phone: [place] [address]-29-2024 09:32-0400Heart rate66 /min DARNELL Grajeda MD Work Phone: [place] [address]-29-2024 09:32-0400Respiratory rate 16 /RamoDARNELL Grajeda MD Work Phone: [place] [address]-29-2024 09:32-2519GzC4% (BldA) [Mass fraction]99 %DARNELL Grajeda MD Work Phone: [place] [address]-29-2024 09:32-0400Systolic blood qrsjrgua344 mm[Hg]DARNELL Grajeda MD Work Phone: [place] [address]-24-2024 14:30-0400Diastolic blood vgyqwvjf89 mm[Hg]Chair Shila Work Phone: [place] [address]-24-2024 14:30-0400Systolic blood uysnezvy305 mm[Hg]Chair Shila Work Phone: [place] [address]-24-2024 09:46-0400Body ibnzxw951.4 Seb Chaparro MD Work Phone: [place] [address]-24-2024 09:46-0400Body mass index (BMI) [Ratio]26.49 kg/f3DbseiEugene Chaparro MD Work Phone: [place] [address]-24-2024 09:46-0400Body temperature 97.3 [degF]Eugene Chaparro MD Work Phone: [place] [address]-24-2024 09:46-0400Body ulckpv43.3 kgEugene Chaparro MD Work Phone: [place] [address]-24-2024 09:46-0400Diastolic blood wvxvoorn31 mm[Hg]Eugene Chaparro MD Work Phone: [place] [address]-24-2024 09:46-0400Heart rate71 /min Eugene Chaparro MD Work Phone: [place] [address]-24-2024 09:46-0400Respiratory rate 16 /minEugene Chaparro MD Work Phone: [place] [address]-24-2024 09:46-1948YyE8% (BldA) [Mass fraction]99 %Eugene Chaparro MD Work Phone: [place] [address]-24-2024 09:46-0400Systolic blood vjgqaivl855 mm[Hg]Eugene Chaparro MD Work Phone: [facility]04-22-2024 09:50-0400Body mass index (BMI) [Ratio]27.05 kg/m2DARNELL Grajeda MD Work Phone: [place] [address]-22-2024 09:50-0400Body temperature 96.91 [degF]DARNELL Grajeda MD Work Phone: [place] [address]-22-2024 09:50-0400Body feqnnu39.09 kgDARNELL Grajeda MD Work Phone: [place] [address]-22-2024 09:50-0400Diastolic blood fujkjngh65 mm[Hg]DARNELL Grajeda MD Work Phone: [place] [address]-22-2024 09:50-0400Heart rate68 /min DARNELL Grajeda MD Work Phone: [place] [address]-22-2024 09:50-0400Respiratory rate 18 /RamoDARNELL Grajeda MD Work Phone: [place] [address]-22-2024 09:50-0400Systolic blood uptuakiy566 mm[Hg]DARNELL Grajeda MD Work Phone: [place] [address]-18-2024 09:00-0400Body temperature 97.7 [degF]Chair Shila Work Phone: [place] [address]-18-2024 09:00-0400Diastolic blood xwxbmuer31 mm[Hg]Chair Shila Work Phone: [place] [address]-18-2024 09:00-0400Heart rate70 /min Chair Shila Work Phone: [place] [address]-18-2024 09:00-0400Respiratory rate 18 /minChair Shila Work Phone: [place] [address]-18-2024 09:00-0497MpP3% (BldA) [Mass fraction]99 %Chair Shila Work Phone: [place] [address]-18-2024 09:00-0400Systolic blood tkjdibop939 mm[Hg]Chair Shila Work Phone: [place] [address]-17-2024 09:08-0400Body ejatbq774.4 cmAshlyn Sibley APRN.[employer]ACH[employer] Work Phone: [place] [address]-17-2024 09:08-0400Body temperature 97.2 [degF]Ashlyn Sibley APRN.[employer] Work Phone: [place] [address]-17-2024 09:08-0400Body brarzg41.1 kgAshlyn Sibley APRN.[employer]ACHINE Work Phone: [place] [address]-17-2024 09:08-0400Diastolic blood xejcrdfz50 mm[Hg]Ashlyn Sibley APRN.[employer]ACHINE Work Phone: [place] [address]-17-2024 09:08-0400Heart rate63 /min Ashlyn Sibley APRN.[employer] Work Phone: [place] [address]-17-2024 09:08-0400Respiratory rate 16 /minAshlyn Sibley APRN.CNP Work Phone: [facility]04-17-2024 09:08-5941RlS2% (BldA) [Mass fraction]98 %Ashlyn Sibley APRN.DESTINY Work Phone: [facility]04-17-2024 09:08-0400Systolic blood mm[Hg]Ashlyn Sibley APRN.[employer] Work Phone: [facility]04-09-2024 08:33-0400Body .4 cmMindy Nicky PA-C Work Phone: [place] [address]-09-2024 08:33-0400Body temperature 97.5 [degF]Jasmine Nicky PA-C Work Phone: [place] [address]-09-2024 08:33-0400Body dsycjr63.4 kgMindy Nicky PA-C Work Phone: [place] [address]-09-2024 08:33-0400Diastolic blood hvwizjxc83 mm[Hg]Jasmine Nicky PA-C Work Phone: [place] [address]-09-2024 08:33-0400Heart rate75 /min Jasmine Nicky PA-C Work Phone: [facility]04-09-2024 08:33-0400Respiratory rate 16 /minMineloisa Nicky PA-C Work Phone: [place] [address]-09-2024 08:33-2995VtA0% (BldA) [Mass fraction]98 %Jasmine Nicky PA-C Work Phone: [place] [address]-09-2024 08:33-0400Systolic blood krfyobrn618 mm[Hg]Jasmine Nicky PA-C Work Phone: [place] [address]-01-2024 13:08-0400Diastolic blood gfoiycif45 mm[Hg]Chair Hart Work Phone: [place] [address]-01-2024 13:08-0400Systolic blood wszprgeu945 mm[Hg]Chair Shila Work Phone: [facility]04-01-2024 09:00-0400Body ikpgsb016.4 cmChair Shila Work Phone: [facility]04-01-2024 08:59-0400Body lnwmwu417.8 cmAshlyn Sibley APRN.[employer] Work Phone: [facility]04-01-2024 08:59-0400Body temperature 97.81 [degF]Ashlyn Sibley [employer]ISHER [employer] Work Phone: [facility]04-01-2024 08:59-0400Body vbfwgy88.7 kgChair Hart Work Phone: [facility]04-01-2024 08:59-0400Diastolic blood vqgiwjvl14 mm[Hg]Ashlyn Sibley APRN.STITCHER SPECIAL MACHINE Work Phone: [facility]04-01-2024 08:59-0400Heart rate69 /min Ashlyn Sibley APRN.STITCHER SPECIAL MACHINE Work Phone: [place] [address]-01-2024 08:59-0400Respiratory rate 16 /minAshlyn Sibley APRN.STITCHER SPECIAL MACHINE Work Phone: [facility]04-01-2024 08:59-5386BhP0% (BldA) [Mass fraction]98 %Ashlyn Sibley APRN.STITCHER SPECIAL MACHINE Work Phone: [facility]04-01-2024 08:59-0400Systolic blood eavrjlfb761 mm[Hg]Ashlyn Sibley APRN.STITCHER SPECIAL MACHINE Work Phone: [facility]03-15-2024 11:19-0400Body kerpac743.8 Seb Chaparro MD Work Phone: [facility]03-15-2024 11:19-0400Body temperature 97.39 [degF]Eugene Chaparro MD Work Phone: [place] [address]-15-2024 11:19-0400Body bhnwak64.8 kgEugene Chaparro MD Work Phone: [place] [address]-15-2024 11:19-0400Diastolic blood ddkumlre64 mm[Hg]Eugene Chaparro MD Work Phone: [place] [address]-15-2024 11:19-0400Heart rate56 /min Eugene Chaparro MD Work Phone: [place] [address]-15-2024 11:19-0400Respiratory rate 16 /minEugene Chaparro MD Work Phone: [place] [address]-15-2024 11:19-7647AlN8% (BldA) [Mass fraction]99 %Eugene Chaparro MD Work Phone: [place] [address]-15-2024 11:19-0400Systolic blood eelwtfso971 mm[Hg]Eugene Chaparro MD Work Phone: [place] [address]-12-2024 09:02-0400Body temperature 97.39 [degF]DARNELL Grajeda MD Work Phone: [place] [address]-12-2024 09:02-0400Body zzioxq59.82 kgDARNELL Grajeda MD Work Phone: [place] [address]-12-2024 09:02-0400Diastolic blood qupxqrgl33 mm[Hg]DARNELL Grajeda MD Work Phone: [place] [address]-12-2024 09:02-0400Heart rate57 /min DARNELL Grajeda MD Work Phone: [place] [address]-12-2024 09:02-0400Respiratory rate 16 /RamoDARNELL Grajeda MD Work Phone: 1(401) 967-673301 [address]12-2024 09:02-0157MgZ2% (BldA) [Mass fraction]100 %DARNELL Grajeda MD Work Phone: 1(360) 249-398101 [address]12-2024 09:02-0400Systolic blood tunvtnav319 mm[Hg]DARNELL Grajeda MD Work Phone: [facility]02-15-2024 14:30-0500Diastolic blood sggxjluv63 mm[Hg]Kylie DIETRICH [address] [place], [place] 456[address]2-15-2024 14:30-0500Heart rate80 /minPatrick DIETRICH [address] [place], [place] 456[address]2-15-2024 14:30-0500 Respiratory rate12 /minPatrick DIETRICH [address] [place], [place] 456[address]2-15-2024 14:30-8333ApB6% (BldA) [Mass fraction]96 %Kylie DIETRICH [address] [place], [place] 456[address]2-15-2024 14:30-0500 Systolic blood mm[Hg]Kylie DIETRICH [address] [place], [place] 456[address]2-15-2024 13:21-0500Heart rate73 /minPatrick DIETRICH [address] [place], [place] 456[address]2-15-2024 13:21-4096GgF0% (BldA) [Mass fraction]95 %Kylie DIETRICH [address] [place], [place] 456[address]2-15-2024 13:21-0500 Diastolic blood kkukgdac81 mm[Hg]Kylie DIETRICH [address] [place], [place] 456[address]2-15-2024 13:21-0500Mean blood lwexsuub594 mm[Hg]Kylie DIETRICH [address] [place], [place] 456[address]2-15-2024 13:21-0500 Systolic blood fsemjjvk603 mm[Hg]Kylie DIETRICH [address] [place], [place] 456[address]2-15-2024 13:15-0500Body xpubojmjulq62.52 [degF]Kylie DIETRICH [address] [place], [place] 456[address]2-15-2024 13:15-0500 Diastolic blood nyzcmdpu16 mm[Hg]Kylie DIETRICH [address] [place], [place] 456[address]2-15-2024 13:15-0500Heart rate73 /minPatrick DIETRICH [address] [place], [place] 456[address]2-15-2024 13:15-0500Mean blood brmwfbcu220 mm[Hg]Kylie DIETRICH [address] [place], [place] 456[address]2-15-2024 13:15-0500 Respiratory rate9 /minPatrick DIETRICH [address] [place], [place] 456[address]2-15-2024 13:15-6326ZxI3% (BldA) [Mass fraction]97 %Kylie DIETRICH [address] [place], [place] 456[address]2-15-2024 13:15-0500 Systolic blood etbntslt265 mm[Hg]Kylie DIETRICH [address] [place], [place] 456[address]2-15-2024 13:00-0500Mean blood mm[Hg]Kylie DIETRICH [address] [place], [place] 456[address]2-15-2024 12:55-0500Mean blood bajtwzpu46 mm[Hg]Kylie DIETRICH [address] [place], [place] 456[address]2-15-2024 12:47-0500Body cqrnabbxtbq44.34 [degF]Kylie DIETRICH [address] [place], [place] 456[address]2-15-2024 12:40-0500 Respiratory rate10 /minPatrick DIETRICH [address] [place], [place] 456[address]2-15-2024 12:35-0500 Respiratory rate10 /minPatrick DIETRICH [address] [place], [place] 456[address]2-15-2024 12:30-0500 Respiratory rate10 /minPatrick DIETRICH [address] [place], [place] 456[address]2-15-2024 10:26-0500Mean blood wyogcuwf12 mm[Hg]Kylie DIETRICH [facility]02-15-2024 10:26-0500Body dkkrkrayxih46.88 [degF]Kylie DIETRICH [facility]01-31-2024 09:11-0500Body xiyeuc375.3 cmWisusan Morgan DO Work Phone: [facility]01-31-2024 09:11-0500 Body mass index (BMI) [Ratio]25.94 kg/e1Mawfbyzsusan Wakefielddon DO Work Phone: [facility]01-31-2024 09:11-0500 Body brfedt23.37 kgWisusan Wakefielddon DO Work Phone: [facility]01-31-2024 09:11-0500 Diastolic blood pyaxtfdr59 mm[Hg]George Morgan DO Work Phone: [facility]01-31-2024 09:11-0500 Heart rate66 /minGeorge Morgan DO Work Phone: [facility]01-31-2024 09:11-0500 Systolic blood cqghtaqd104 mm[Hg]George Morgan DO Work Phone: [facility]01-18-2024 08:30-0500 Body coskkx536.34 cmBenjamin Ball Other [facility]01-18-2024 08:30-0500 Body mass index (BMI) [Ratio]25.33 kg/b5Eltknjdv Ball Other [facility] Other 01-18-2024 08:30-0500Body jbptoc26.37 kgBenjamin Ball Other [facility]01-18-2024 08:30-0500 Diastolic blood hufwsvlc77 mm[Hg]Lesa Ball Other [facility]01-18-2024 08:30-0500 Respiratory rate12 /minBenjamin Ball Other [facility] Other 01-18-2024 08:30-0500Systolic blood pmcuxvha884 mm[Hg] Lesa Estrella Other [facility]12-21-2023 16:00-0500 Body xfyieycwnxq04.1 [degF]Reanna Sun MD Work Phone: 1(868)[address] [place], [place] 3883812-21-2023 16:00-0500 Diastolic blood nahkzxfj27 mm[Hg]Reanna Sun MD Work Phone: 1(435)[address] [place], [place] 3883812-21-2023 16:00-0500Heart rate68 /belkisChtabathatopher Corinne CHOI Work Phone: 1(742)[address] [place], [place] 3883812-21-2023 16:00-0500 Respiratory rate17 /minChristopher Amarjit Hess MD Work Phone: 1(104)[address] [place], [place] 3883812-21-2023 16:00-5523IwN2% (BldA) [Mass fraction]99 %Reanna Sun MD Work Phone: 1(002)[address] [place], [place] 3883812-21-2023 16:00-0500Systolic blood mnaiojqj112 mm[Hg]Reanna Sun MD Work Phone: 1(489)[address] [place], [place] 3883812-20-2023 22:34-0500Body ntsobj488.8 cmCcolt Sun MD Work Phone: 1([phone])[address] [place], [place] 3883812-18-2023 14:30-0500Body rxpdyv778.34 cmImad Tony Other [facility] Other 12-18-2023 14:30-0500Body mass index (BMI) [Ratio] 25.24 kg/m2Imad Asapat Other [employer] Other 12-18-2023 14:30-0500Body .1 kgImad Asaad Other [employer] Other 12-18-2023 14:30-0500Diastolic blood epditjvn71 mm[Hg] Imad Asaad Other [employer] Other 12-18-2023 14:30-0500Systolic blood ldxvgotd138 mm[Hg] Imad Asaad Other [employer] Other 12-15-2023 08:45-0500Body xepuic719.34 cmBenjamin Ball Other [employer] Other 12-15-2023 08:45-0500Body mass index (BMI) [Ratio] 25.35 kg/i5Yvyrhnbi Ball Other [employer] Other 12-15-2023 08:45-0500Body vgyzef64.46 kgBenjamin Ball Other [employer] Other 12-15-2023 08:45-0500Diastolic blood sjudsvwm02 mm[Hg] Lesa Ball Other [employer] Other 12-15-2023 08:45-0500Respiratory rate12 /minBenjamin Ball Other [employer] Other 12-15-2023 08:45-0500Systolic blood mm[Hg] Lesa Ball Other [employer] Other 11-15-2023 08:45-0500Body xeosgv617.34 cmBenjamin Ball Other [employer] Other 11-15-2023 08:45-0500Body mass index (BMI) [Ratio] 26.11 kg/k0Lgdylkun Ball Other [employer] Other 11-15-2023 08:45-0500Body aoquxv58.91 kgBenjamin Ball Other [employer] Other 11-15-2023 08:45-0500Diastolic blood mm[Hg] Lesa Ball Other [employer] Other 11-15-2023 08:45-0500Respiratory rate12 /minBenjamin Ball Other [employer] Other 11-15-2023 08:45-0500Systolic blood xslqegun021 mm[Hg] Lesa Ball Other [employer] Other 11-01-2023 09:30-0400Body vymuap524.34 cmBenjamin Ball Other [employer] Other 11-01-2023 09:30-0400Body mass index (BMI) [Ratio] 25.46 kg/n1Dhccnsfi Ball Other [employer] Other 11-01-2023 09:30-0400Body tkiljh04.83 kgBenjamin Ball Other [employer] Other 11-01-2023 09:30-0400Diastolic blood ivfhlsoq64 mm[Hg] Lesa Ball Other [employer] Other 11-01-2023 09:30-0400Respiratory rate12 /minBenjamin Ball Other [employer] Other 11-01-2023 09:30-0400Systolic blood xsjfaeeg074 mm[Hg] Lesa Ball Other [employer] Other 10-13-2023 09:45-0400Body yirmvj594.34 cmBenjamin Ball Other [employer] Other 10-13-2023 09:45-0400Body mass index (BMI) [Ratio] 25.86 kg/e6Idvnbjaz Ball Other [employer] Other 10-13-2023 09:45-0400Body ibjuui21.1 kgBenjamin Ball Other [employer] Other 10-13-2023 09:45-0400Diastolic blood mm[Hg] Lesa Ball Other [employer] Other 10-13-2023 09:45-0400Respiratory rate12 /minBenjamin Ball Other [employer] Other 10-13-2023 09:45-8905IqP4% (BldA) [Mass fraction]96 % Lesa Ball Other [employer] Other 10-13-2023 09:45-0400Systolic blood spmlzpan685 mm[Hg] Lesa Ball Other [employer] Other 09-18-2023 08:30-0400Body aqwvly018.34 cmBenjamin Ball Other [employer] Other 09-18-2023 08:30-0400Body mass index (BMI) [Ratio] 26.02 kg/q7Csuxenmp Ball Other [employer] Other 09-18-2023 08:30-0400Body mfqryk39.64 kgBenjamin Ball Other [employer] Other 09-18-2023 08:30-0400Diastolic blood chbhovps98 mm[Hg] Lesa Ball Other [employer] Other 09-18-2023 08:30-0400Respiratory rate12 /minBenjamin Ball Other [employer] Other 09-18-2023 08:30-0400Systolic blood mm[Hg] Lesa Ball Other [employer] Other 08-18-2023 14:15-0400Body jusnrj124.34 cmBenjamin Ball Other [employer] Other 08-18-2023 14:15-0400Body mass index (BMI) [Ratio] 26.72 kg/t0Hacjuuvm Ball Other [employer] Other 08-18-2023 14:15-0400Body japxzp68.91 kgBenjamin Ball Other [employer] Other 08-18-2023 14:15-0400Diastolic blood dooayyvs23 mm[Hg] Lesa Ball Other [employer] Other 08-18-2023 14:15-0400Respiratory rate12 /minBenjamin Ball [facility] [employer] Other 08-18-2023 14:15-0400Systolic blood jteecdes511 mm[Hg] Lesa Ball [facility] [employer] Other 07-13-2023 11:57-0400Body koxqzd932.8 cmBenjamin E Ball Work Phone: [phone]-Exorv [place] [address] DO Work Phone: 1(673) 958-192707-13-2023 11:57-0400Body mass index (BMI) [Ratio] 26.54 kg/v6Bsjncqia E Ball Work Phone: [phone]-Vdprq [place] [address] DO Work Phone: 1(438) 373-180807-13-2023 11:57-0400Body surface area Derived from formula2.02 p6Zbqytbkp E Ball Work Phone: [phone]-Bowyq [place] [address] DO Work Phone: 1(814) 623-585807-13-2023 11:57-0400Body ybqyjy78.92 kgBenjamin E Ball Work Phone: mp504-9115BC-Jwadr [place] [address] DO Work Phone: 1(573) 641-840107-13-2023 11:57-0400Diastolic blood cpcxheby28 mm[Hg] Lesa E Ball Work Phone: [phone]-Idtzt [place] [address] DO Work Phone: 1(156) 436-412507-13-2023 11:57-0400Heart rate60 /minBenjamin E Ball Work Phone: mp238-4425SX-Oimcu [place] [address] DO Work Phone: 1(402) 459-247707-13-2023 11:57-0400Systolic blood nsbincmp453 mm[Hg] Lesa E Ball Work Phone: [phone]-Gliju [place] [address] DO Work Phone: 1(874) 798-868707-04-2023 08:53-0400Body kurpmzmvhip04.8 [degF]DO Lesa Ball Work Phone: [facility]07-04-2023 08:53-0400 Diastolic blood vijwchzh71 mm[Hg]DO Lesa Ball Work Phone: 1([phone]07-04-2023 08:53-0400 Heart rate70 /minDO Lesa Ball Work Phone: 1([phone])[phone]07-04-2023 08:53-0400 Respiratory rate16 /minDO Lesa Ball Work Phone: 1(507)288-[address] [place], [place] 5626507-04-2023 08:53-0400 SaO2% (BldA) [Mass fraction]97 %DO Lesa Ball Work Phone: [phone]07-04-2023 08:53-0400 Systolic blood mm[Hg]DO Lesa Ball Work Phone: 1(520)568-[address] [place], [place] 5626507-04-2023 04:43-0400 Body .1 kgDO Lesa Ball Work Phone: 1([phone]07-03-2023 10:44-0400 Body newxyy813.8 cmDO Lesa Ball Work Phone: [phone]06-23-2023 13:15-0400 Body degmle702.34 cmBenjamin Ball Other [facility] Other 06-23-2023 13:15-0400Body mass index (BMI) [Ratio] 26.41 kg/i9Hoiatmhd Ball Other [facility] Other 06-23-2023 13:15-0400Body giivxa94.91 kgBenjamin Ball Other [facility] Other 06-23-2023 13:15-0400Diastolic blood khzhddad39 mm[Hg] Lesa Ball Other [facility] Other 06-23-2023 13:15-0400Respiratory rate12 /minBenjamin Ball Other [facility] Other 06-23-2023 13:15-0400Systolic blood iscdfkhe711 mm[Hg] Lesa Ball Other [facility] Other 04-19-2023 12:30-0400Body vntxyo013.34 cmBenjamin Ball Other [facility] Other 04-19-2023 12:30-0400Body mass index (BMI) [Ratio] 26.39 kg/m6Ifciunjd Ball Other [facility] Other 04-19-2023 12:30-0400Body cgefsq90.82 kgBenjamin Ball Other [facility] Other 04-19-2023 12:30-0400Diastolic blood froiagvl32 mm[Hg] Lesa Ball Other [facility] Other 04-19-2023 12:30-0400Respiratory rate12 /minBenjamin Ball Other [facility] Other 04-19-2023 12:30-0400Systolic blood mm[Hg] Lesa Ball [facility] Other 03-27-2023 15:51-0400Body ltndvo382.8 cmAvel Heath MD Work Phone: [facility]03-27-2023 15:51-0400Body temperature 97.5 [degF]Avel Heath MD Work Phone: [facility]03-27-2023 15:51-0400Body urdpmp10.46 kgJoseph Ivana CHOI Work Phone: [facility]03-27-2023 15:51-0400Diastolic blood mm[Hg]Avel Heath MD Work Phone: [facility]03-27-2023 15:51-0400Heart rate65 /min Avel Heath MD Work Phone: [facility]03-27-2023 15:51-6853WmU0% (BldA) [Mass fraction]97 %Avel Heath MD Work Phone: [facility]03-27-2023 15:51-0400Systolic blood ecfkoswv210 mm[Hg]Avel Heath MD Work Phone: [facility]03-13-2023 11:30-0400Body erlpfk968.34 cmBenjamin Ball Other [facility] Other 03-13-2023 11:30-0400Body mass index (BMI) [Ratio] 26.27 kg/f5Dfqrxfdf Ball Other [facility] Other 03-13-2023 11:30-0400Body .46 kgBenjamin Ball Other [facility] Other 03-13-2023 11:30-0400Diastolic blood asfudojx38 mm[Hg] Lesa Ball Other [facility] Other 03-13-2023 11:30-0400Respiratory rate12 /minBenjamin Ball Other [facility] Other 03-13-2023 11:30-0400Systolic blood jtboalyr923 mm[Hg] Lesa Ball Other [facility] Other Encounters Encounter DateEncounter TypeCare ProviderFacilityStart: 07-16-2025 End: 40-19-4597Rkaiqi flowsheetChrocael Wagner DPM Work Phone: [facility]ryStart: 07-16-2025 End: 56-75-3472Woasxr flowsheetChristopher Em Bohisaiah DPM Work Phone: [facility]ryStart: 07-16-2025 End: 41-59-6386Koxxsh outpatient new 30 minutesChristopher Manav Wagner DPM Work Phone: [facility] PodiatryComment on above: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); Acquired deformity of left toe; Acquired deformity of right toe; Onychomycosis; Idiopathic progressive polyneuropathyStart: 07-16-2025 End: 16-14-0577eaeuumwatrUAQRKFBLJCF J BOHACHNot AvailableStart: 06-04-2025 End: 14-70-7840qeaamhahlfZsikjzb R WATERSFacility:[facility] [place]Start: 06-04-2025 End: 21-51-8931Nfzigtm encounter procedurePadaniel DIETRICH [facility] start: 06-03-2025 End: 24-75-8317hyzarxfxzfYmzgctv R WATERSFacility:CD:[id number]: 05-19-2025 End: 08-17-9542Mbddji outpatient visit 15 minutesG Leigh Grajeda MD Work Phone: Radiation OncologyComment on above: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)Start: 05-19-2025 End: 53-60-8674Trmfuh outpatient visit 25 minutesEugene Chaparro MD Work Phone: Hematology/OncologyComment on above:Malignant neoplasm of overlapping sites of bladder (HCC) (Primary Dx); Pulmonary nodule, left; Lung granuloma (HCC); Atherosclerosis of aorta; Personal history of malignant neoplasm of bladder; Acquired absence of organ, urinary bladderStart: 05-19-2025 End: 18-41-2205limblxvhpjULEPJERR E BALLFacility:[facility] Centertart: 60-48-1830mbifnhyfyvUYCXAZZN E BALLFacility:[facility] Centertart: 05-14-2025 End: 10-44-1033Vmgxgwdaut hospital visit by physicianArrival Time Radiology Work Phone: Radiology Pet CTComment on above:Malignant neoplasm of urinary bladder, unspecified site (HCC) [C67.9]Start: 04-02-2025 End: 22-17-9844bamsnuctlqXYAQIHJD E PERRYFacility:[facility] [place]Start: 04-02-2025 End: 04-12-7504Foqevgq encounter procedureJENNIFER E LAUREL [facility] start: 03-31-2025 End: 62-52-7057Skllkk outpatient visit 15 minutesTheodora Cortez [facility] Work Phone: FirelandsComment on above:BMI 26.0-26.9,adult (Primary Dx); Localized edemaStart: 03-31-2025 End: 52-42-1873qxwogdlaiwIMDCK K [facility] AmbulatoryStart: 03-23-2025 End: 95-35-8374cpnhmdgoywDqohtapa Ball DO Work Phone: [facility] Work Phone: Start: 03-23-2025 End: 60-12-5695Nyzkrmk encounter procedureBenjamin Ball DO Work Phone: [facility] Work Phone: Start: 03-19-2025 End: 99-63-1896ljytfkgievXDHIGOBX E PERRYFacility:EU [place]Start: 03-19-2025 End: 59-06-2647Bbdfxja encounter procedureJENNIFER E LAUREL [facility] start: 03-16-2025 End: 57-18-5304Yqfgkdt encounter procedureLesa Estrella DO Work Phone: [facility] [place] Work Phone: Start: 03-16-2025 End: 83-47-8510Qrxqtx outpatient visit 15 minutesTheodora Love FINISHER POLISHER-STITCHER SPECIAL MACHINE Work Phone: FirelandsComment on above:Mixed hyperlipidemia (Primary Dx); Atherosclerosis of [place] coronary artery, unspecified whether angina present, unspecified whether [place] or transplanted heart; Essential (primary) hypertension; BMI 27.0-27.9,adult; Localized edemaStart: 03-16-2025 End: 82-26-1185dbgaafyiwxUgjzrkns Ball DO Work Phone: [facility] Work Phone: Start: 01-29-2025 End: 50-95-7878Awuciclkj encounterEugene Chaparro MD Work Phone: Cancer Appts MCComment on above:ResultsStart: 01-29-2025 End: 91-62-9994Tgqdkg outpatient visit 40 minutesEugene Chaparro MD Work Phone: Hematology/OncologyComment on above:Malignant neoplasm of urinary bladder, unspecified site (HCC) (Primary Dx); Lung nodules; Stage 3a chronic kidney disease (HCC); Anemia, unspecified type; Malignant neoplasm of overlapping sites of bladder (HCC)Start: 01-29-2025 End: 46-25-5533vxqbqmfmngSDRAJ ABHYANKARFacility:[facility] Centertart: 01-29-2025 End: 21-30-7826Qxkdykclgz hospital visit by physicianArrival Time Radiology Work Phone: Radiology Pet CTComment on above:Malignant neoplasm of urinary bladder, unspecified site (HCC) [C67.9]Start: 01-18-2025 End: 79-93-9721fkkoeodqobZYYZATGP Darvin ESTRELLAFacility:[facility] Centertart: 72-26-3195Kja-patient / Non-visitBemirandabelkis Estrella DO Work Phone: [facility] Work Phone: Start: 01-08-2025 End: 30-40-0360fhdapiattqXvxllnw Waters MD Work Phone: [facility] Work Phone: Start: 01-08-2025 End: 45-35-9875Fgvpogw encounter procedureKylie Dietrich MD Work Phone: [facility] Work Phone: Start: 12-08-2024 End: 92-50-8086dvmijccikhMqyrnqf Waters MD Work Phone: [facility] Work Phone: Start: 12-08-2024 End: 83-47-9449Iiftvbe encounter procedureKylie Dietrich MD Work Phone: [facility] Work Phone: Start: 11-27-2024 End: 57-42-1241wkzbbtzpvpFuqmyeh R WATERSFacility:EU [place]vueStart: 11-27-2024 End: 04-48-7084Imbdmji encounter procedureKylie DIETRICH [facility] start: 11-23-2024 End: 47-54-2776ljijntdnggJdjqcur [facility] Work Phone: Start: 11-23-2024 End: 62-49-2059Fxvhpomm ReferredKylie Dietrich MD Work Phone: [facility]-LAB Path Spec [place] HospStart: 11-23-2024 End: 35-74-3048lnayuobctxArlyibr R WATERSFacility:CD:[id number]: 11-16-2024 ambulatoryKylie DIETRICHFacility:MERYL BellevueStart: 10-30-2024 End: 54-63-6548Lvlfbahyp encounterSherron Singh RN Work Phone: Hematology/OncologyComment on above:Care Coordination (Urology Question)Start: 10-28-2024 End: 53-15-2283Mtslaj outpatient visit 25 minutesEugene Chaparro MD Work Phone: Hematology/OncologyComment on above:Malignant neoplasm of urinary bladder, unspecified site (HCC) (Primary Dx); Lung nodules; Stage 3a chronic kidney disease (HCC)Start: 10-28-2024 End: 08-44-4267Wbnlof outpatient visit 15 minutesG Leigh Grajeda MD Work Phone: radiation OncologyComment on above: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)Start: 10-28-2024 End: 75-17-9543fchflqagdbXIEAW ABHYANKARFacility:[facility] Centertart: 10-20-2024 End: 83-97-8322jdwpocdurdBAUCOLDG E BALLFacility:[facility] Centertart: 10-20-2024 End: 78-35-4112Fjeofushtr hospital visit by physicianArrival Time Radiology Work Phone: Radiology Pet CTComment on above:Malignant neoplasm of urinary bladder, unspecified site (HCC) [C67.9]Start: 10-05-2024 End: 99-37-9305Shakybyzt encounterSherron Singh RN Work Phone: Hematology/OncologyComment on above:Care Coordination (CT Results)Start: 09-30-2024 End: 77-62-8698shkizcrxuxKOCOJ ABHYANKARFacility:[facility] Centertart: 55-08-7248Egt-patient / Non-visitKylie Dietrich MD Work Phone: [facility] [facility] Work Phone: Start: 09-21-2024 End: 35-72-5617Javryxi encounter procedureKylie Dietrich MD Work Phone: [facility] Work Phone: Start: 87-35-3833Rvztygy encounter procedureKylie Dietrich MD Work Phone: [facility] Springfieldtart: 05-38-1849Gkq- patient / Non-visitKylie Dietrich MD Work Phone: [facility] GroupT[facility] Work Phone: Start: 08-24-2024 End: 70-34-4496cvowprpjcrJkcwdtaa BallFacility:[facility] Start: 07-21-2024 End: 02-13-6484kzpvsztjauJirlcwvxvTrumbull [facility] Center Work Phone: Start: 07-21-2024 End: 03-03-0130Kzuhqdu encounter procedureNov[facility] Work Phone: Start: 07-16-2024 End: 95-24-5736dwoodjyxleBwxuqs J GaleaFacility:[place] LinvilleevueStart: 07-16-2024 End: 33-99-7876Gdsrbws encounter procedureNiki Dumont [facility] start: 07-06-2024 End: 02-22-0965Dresbrady encounterEugene Chaparro MD Work Phone: Cancer Appts MCComment on above:Future Appointment Start: 07-01-2024 End: 09-25-3135Vtqjjwz encounter procedureG Leigh Grajeda MD Work Phone: Radiation OncologyComment on above: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)Start: 07-01-2024 End: 71-66-0715ufezgiumdjP LEIGH ORALIAMARK ANTHONYJOEYacility:[facility] Start: 07-01-2024 End: 14-02-3613Pdisew outpatient visit 25 minutesEugene Chaparro MD Work Phone: Hematology/OncologyComment on above: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); Anemia, unspecified typeStart: 07-01-2024 End: 11-75-5408qrtkguakxrNVUFIJLZ E BALLFacility:[facility] Centertart: 29-85-5332Pzn-patient / Non-visitNov[facility] Phys[facility] GroupLeg[facility] Work Phone: Start: 07-01-2024 End: 46-72-4403xaroovvnptTsfwaaa R WATERSFacility:EU BellevueStart: 07-01-2024 End: 03-20-3732Lucsrdj encounter procedureKylie DIETRICH [facility] start: 06-29-2024 End: 96-13-4822nivaqamrqwUpmgyaw R WATERSFacility:CD:[id number]: 06-23-2024 End: 14-62-3951Jbz Drop offKylie DIETRICH [facility] Start: 06-23-2024 End: 01-10-0215xsrkzpojwzQpkrhmn R WATERSFacility:FTMCStart: 06-23-2024 End: 25-27-9878Slgyewz encounter procedureTannertricdana DIETRICH [facility] start: 53-64-4606Rfi-patient / Non-visitNovant Health [facility] Phys[facility] GroupLeg[facility] Work Phone: Start: 06-08-2024 End: 53-72-1691uhafhfyrnfQfnakjxkqCity Hospital Work Phone: Start: 06-08-2024 End: 12-32-5789Bnpbsew encounter procedureNov[facility] Work Phone: Start: 80-69-7940Tdn-patient / Non-visitNov[facility] Professional Co Work Phone: Start: 05-20-2024 End: 63-44-3230ihtbgqedeuTFNJFKPForest Health Medical Center AmbulatoryStart: 04-20-2024 End: 79-48-4043bfntltebqhGvjotia R WATERSFacility:EU BellevueStart: 04-20-2024 End: 46-75-3770Xaofdfi encounter procedureKylie DIETRICH [facility] start: 03-25-2024 End: 27-73-6259Wqujmww encounter procedureG Leigh Grajeda MD Work Phone: Radiation OncologyComment on above: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)Start: 84-24-9846Acuahjaiu Oncology NoteG Leigh Grajeda MD Work Phone: Radiation OncologyComment on above:Completion Note Start: 02-26-2024 End: 81-31-1778Cohrex outpatient visit 25 minutesEugene Chaparro MD Work Phone: Hematology/OncologyComment on above: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)Start: 84-75-3848Dow-patient / Non-visitNovant Health [facility] Physician GroupLeg[facility] Work Phone: Start: 02-24-2024 End: 05-44-1766Icyidd WorkLorana maria Pierre [facility]ENTERematology/OncologyComment on above:Care Coordination (Urine Culture Results)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)Start: 84-75-3628Egwezp OnlyEugene Chaparro MD Work Phone: Hematology/OncologyStart: 36-85-4184Zttwklybo encounterEugene Chaparro MD Work Phone: Radiation OncologyComment on above:Edema; Dysuria; DiarrheaStart: 02-21-2024 End: 89-01-2840Plawxcb encounter procedureLab/Port Cherelle Hart Work Phone: Radiation OncologyComment on above: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)Start: 65-36-6421Unhdkowgp encounterRadha Torres RNHematology/OncologyComment on above:Patient Question Start: 02-19-2024 End: 80-68-1255Oadrxft evaluation of patient and reportMa Nurse Maninder Rosenberg Work Phone: Hematology/OncologyComment on above:Dysuria (Primary Dx)Start: 20-82-6593Vru-patient / Non-visitNovant Health [facility] Physician GroupLeg[facility] Work Phone: Start: 02-19-2024 End: 06-52-7429ubpgcytdjcFhbqc 7 Shila Work Phone: Hematology/OncologyComment on above: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); High risk medications (not anticoagulants) long-term useStart: 02-18-2024 Telephone encounterSherron Singh RN Work Phone: Hematology/OncologyComment on above:Care Coordination (Catheter Sizing)Start: 02-18-2024 End: 07-31-8813Tdidvqh encounter procedureSuzanne Grajeda MD Work Phone: Radiation OncologyComment on above: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)Start: 02-17-2024 End: 60-44-9097Ooufcye encounter procedurePadaniel DIETRICH [facility] start: 02-17-2024 End: 28-98-7360Hcbbhdf encounter procedureSuzanne Grajeda MD Work Phone: Radiation OncologyComment on above: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); Edema legStart: 35-67-1055Dagqtvncv encounterSherron Singh RN Work Phone: Hematology/OncologyComment on above:Care Coordination (Urinary Supplies)Start: 02-12-2024 End: 16-23-1092Pifikw outpatient visit 25 minutesEugene Chaparro MD Work Phone: Hematology/OncologyComment on above: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)Start: 25-83-8470Rse-patient / Non-visitNov[facility] Physician [facility] Professional Co Work Phone: Start: 02-12-2024 End: 89-48-4470yytfvsshewUeufr [address] Work Phone: Hematology/OncologyComment on above: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)Start: 02-10-2024 End: 82-07-5709Vgsuffs encounter procedureSuzanne Grajeda MD Work Phone: Radiation OncologyComment on above: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)Start: 73-93-3339Rhnhuajgg encounterEugene Chaparro MD Work Phone: Hematology/OncologyComment on above:OrdersStart: 02-06-2024 End: 61-65-5246csjrlnpcsuZchnq [address] [place] Work Phone: Hematology/OncologyComment on above: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)Start: 55-95-5358Kjx-patient / Non-visitNov[facility] Physician [facility] Professional Co Work Phone: Start: 02-05-2024 End: 19-67-2491ccutubsmudZzlrp [address] Work Phone: Hematology/OncologyComment on above: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)Start: 02-05-2024 End: 71-57-5902Agpfmaz encounter procedureAshlyn Sibley APRN.CNP Work Phone: SANDUSKYStart: 98-70-3158Jkj-patient / Non-visit [facility] Physician [facility] Professional Co Work Phone: Start: 02-04-2024 End: 59-99-1310Fqmljig encounter procedureLab/[place]lle Hart Work Phone: Radiation OncologyComment on above: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)Start: 01-28-2024 End: 22-49-3437nwzuspizjpKrqhb Loretta Hart Work Phone: Hematology/OncologyComment on above: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)Start: 01-28-2024 End: 69-92-0730Sotqxc outpatient visit 25 minutesMineloisa Saunders PA-C Work Phone: Hematology/OncologyComment on above: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)Start: 46-88-8870Rmj-patient / Non-visitNovant Health [facility] Physician GroupLeg[facility] Professional Ar Work Phone: Start: 44-60-0756Akowsrmxr encounterSherron Singh RN Work Phone: Hematology/OncologyComment on above:Care Coordination (C1D1 Post Treatment Call)Start: 09-44-8341Zgribfrua encounterFinancial Navigator Maninder Work Phone: Hematology/OncologyComment on above:Benefits InvestigationStart: 01-20-2024 End: 47-24-3563uptjipsknuRqdvz 9 Shila Work Phone: Hematology/OncologyComment on above: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)Start: 54-49-1478Lfigeikqr Oncology NoteG Leigh Grajeda MD Work Phone: Radiation OncologyComment on above:Simulation Note Start: 01-08-2024 End: 14-58-3497Qxrabxjdly hospital visit by physicianSuzanne Grajeda MD Work Phone: Radiology Pet CTComment on above: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) [C67.0]Start: 05-46-5676Nxk-patient / Non-visitNovant Health [facility] Physician GroupLeg[facility] Professional [facility] Work Phone: Start: 01-03-2024 End: 19-38-8801Sglfft outpatient new 60 Chelsey Chaparro MD Work Phone: Hematology/OncologyComment on above: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)Start: 66-69-0337yxdixeuibyRrlgmo Graves LPN Radiation OncologyComment on above:Patient EducationStart: 12-31-2023 End: 99-91-2560Eokeguy encounter procedureG Leigh Grajeda MD Work Phone: Radiation OncologyComment on above: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)Start: 05-08-0048Wiq-patient / Non-visitNov[facility] Physician [facility] Professional Co Work Phone: Start: 13-95-4181Dbi-patient / Non-visitNov[facility] Health [facility] Physician [facility] Professional [facility] Work Phone: Start: 12-05-2023 End: 20-04-3752Shhgfdlmv to same day surgery southportKylie DIETRICH [facility] Start: 11-22-2023 End: 48-27-3219gxesleojgdMgpjbggv Ball Other [facility] Other Start: 57-92-3214Whmqufgqx encounterBedenton EstrellaFPSuzanne Estrella Medical ClinicStart: 11-20-2023 End: 70-34-0972Pulibg outpatient visit 15 minutesGeorge Morgan DO Work Phone: uh Fireuniversity of washington medical centerComment on above:Atherosclerosis of [place] coronary artery, unspecified whether angina present, unspecified whether [place] or transplanted heart; Stented coronary artery; Non-ST elevation myocardial infarction (NSTEMI) ([facility]/HCC); Hyperlipidemia, unspecified hyperlipidemia type; History of colon cancer; Never smoked any substance; Malignant neoplasm of urinary bladder, unspecified site (CMS/HCC)Start: 11-07-2023 End: 14-82-3214jlpypwwtgcTdnobnop Ball Other [employer] Other Start: 34-39-7268Audjum outpatient visit 15 minutes Lesa [facility] ClinicStart: 11-07-2023 End: 95-36-3649Yzgexwq encounter procedureNovant Health [facility] Physician Group-Start: 10-28-2023 End: 24-51-8452pchxrlrgaoWzcn [place] Other [employer] Other Start: 23-57-5498Esdowkaeb encounterImad Ayad Referral CoordinatorStart: 10-23-2023 End: 36-76-5686qeparyjawcOP Lesa ShipHawk Work Phone: [facility] Work Phone: Start: 10-23-2023 End: 75-41-6801Dxdwdpi encounter procedureDO [employer] Work Phone: [facility]-CT Scan Main [place] Work Phone: Start: 10-10-2023 End: 66-96-3228Vlqzazxqx department patient visitChrisjeffrey Sun MD Work Phone: rhodes Clinical Decision UnitStart: 10-07-2023 End: 85-19-6677vmmzsuobzjPpev Asapat Other nort [facility] Other Start: 29-93-2789Parzgq outpatient new 45 minutesImad Ayad GastroenterologyStart: 10-04-2023 End: 59-15-3091vsotklojteFjlgwoss Ball Other noRegenerate [facility] Other Start: 74-67-5584Lfymmd outpatient visit 15 minutes Lesa [facility] Medical ClinicStart: 09-04-2023 End: 46-70-6409whglzgylcbLlnivgbw Ball Other [employer] Other Start: 91-43-9533Fjkiom outpatient visit 15 minutes Lesa BallFPG [facility] Medical ClinicStart: 43-78-3323Rzuafhnye encounterBenjamin BallFPG [facility] ClinicStart: 08-21-2023 End: 40-22-6403rocapdkyjwDhswgihw Ball Other [employer] Other Start: 20-21-7725Eakkao outpatient visit 15 minutes Lesa BallFPG [facility] ClinicStart: 47-99-7935Yfzsyrjit encounterBenjamin BallFPG [facility] ClinicStart: 08-09-2023 End: 69-44-4938sznqvfhqpcAgpdlomn Ball Other [facility] Other Start: 19-56-6153Nghorcpor encounterBenjamin BallFPG [facility] ClinicStart: 08-06-2023 End: 21-41-1580bdmqqzlmnxPnkbabgf Ball Other [facility] Other Start: 96-81-0076Yexbmuggh encounterBenjamin BallFPG [facility] ClinicStart: 08-02-2023 End: 51-73-1601dixxeecmkxRgboeruz Ball Other [facility] Other Start: 27-75-1382Kdlwvx outpatient visit 15 minutes Lesa BallFPG [facility] ClinicStart: 07-31-2023 End: 54-67-9585zjautvsrxcYrkjuwcc Ball Other [employer] Other Start: 79-72-3158Qtrzzsaxf encounterBenjamin BallFPG [facility] ClinicStart: 07-10-2023 End: 79-60-3955didowfrevbVfntbgoq Ball Other noRegenerate [facility] Other Start: 59-56-2099Jzfguclat encounterBenjamin BallFPG [facility] ClinicStart: 47-92-3557Fxtos UpdateBenjamin E Ball Work Phone: [phone]-Tlcka [facility] [address] DO Work Phone: Start: 07-08-2023 End: 89-14-2588jxygrwdkizCwgcxuaa Ball Other noRegenerate [facility] Other Start: 48-15-0306Jgrojmz encounter procedureBenjamin BallFPG [facility] ClinicStart: 85-77-9103Ufttbmnet encounterBenjamin BallFPG [facility] ClinicStart: 49-86-3884peyemflftjQeWesley Wakefielddon Facility:[id number]: 06-07-2023 End: 58-14-4143exwaxfjlqgErkmigrp Ball Other [facility] Other Start: 41-78-2469Birjzf outpatient visit 15 minutes Lesa BallFPG [facility] ClinicStart: 23-06-0834Ku RenewalBenjamin E Ball Work Phone: [phone]-FxszwGlencoe [facility]-[place] [address] DO Work Phone: Start: 05-09-2023 End: 53-85-2522wozegtbnrgJsrwalph Ball Other [facility] Other Start: 32-90-1759Hsbdlcmbl encounterBenjamin BallFPG [facility] ClinicStart: 23-16-2645Eynsoamlz encounterBenjamin BallFPG [facility] ClinicStart: 85-46-2107Gktmua outpatient visit 15 minutesBenjamin E Ball Work Phone: [phone]-Cgnka [facility] [address] DO Work Phone: Start: 05-02-2023 End: 19-20-3108nxmgbjwnqdZt. Lesa Radu EstrellaNoRegenerate [facility] Other Start: 65-25-5478Aidhjgqqp encounterBenjamin BallFPG [facility] ClinicStart: 04-22-2023 End: 26-66-5931Hhsivclyxz and management of inpatientDO Lesa Estrella Work Phone: [facility]-[address] [place] [facility] Work Phone: Start: 04-22-2023 End: 07-88-9944jfttaandckAj. George MorganKonjekt Other Start: 04-12-2023 End: 45-06-8776rviwjlhuxzNjloyhqg Ball Other [employer] Other Start: 24-10-6388Mgaatz outpatient visit 15 minutes Lesa BallFPG [facility] ClinicStart: 04-08-2023 End: 46-84-8672Zagiask encounter procedurePatrick Kavya DIETRICH [facility] start: 03-19-2023 End: 03-87-9481sdtsmiqdbvUecpjcap Ball Other [employer] Other Start: 34-13-4810Yugmwukvv encounterBenjamin BallFPG [facility] ClinicStart: 02-06-2023 End: 53-64-2771xbjnkmuwpxJlmnkari Ball Other [employer] Other Start: 05-23-9583Gzgcdu outpatient visit 15 minutes Lesa BallFPG [facility] ClinicStart: 82-06-0957Ctrsghgut encounterBenjamin BallFPG [facility] ClinicStart: 01-31-2023 End: 10-46-0690iyhsfklyjlLqdtaxtu Ball Other [employer] Other Start: 66-49-2183Mjlafnkvc encounterBenalida Estrella Medical ClinicStart: 01-18-2023 End: 04-12-8857aqzudifaxfYWSZRM RODRIGUEZ .Facility:J9Lhoap: 01-14-2023 End: 69-24-7141Iasknvl encounter procedureAvel Heath MD Work Phone: Colorectal SurgeryComment on above:Irregular bowel habits (Primary Dx)Start: 77-51-2104Gomoztuct encounterBenalida Estrella Medical ClinicStart: 01-07-2023 End: 57-30-2574dcojjsigreRG KYLIE DIETRICH .[employer] Other Start: 12-31-2022 End: 45-36-8423jgzwjdiiznApvgisod Ball Other [facility] Other Start: 14-28-0490Zuxvik outpatient visit 25 minutes Lesa [facility] ClinicStart: 65-73-7130Kwmiplurz encounterBenalida [facility]rella Medical ClinicStart: 12-27-2022 End: 27-21-3996rzjaujebxbUW LESA SAMEERBay City [facility] Other Start: 12-25-2022 End: 32-90-8383jahrlohhngManv Braun Other [facility] Other start: 85-06-4094Todyaxgef encounterDale Noel [facility] Medical ClinicStart: 56-81-0747mjjdkbfjosVT KYLIE DIETRICH .Facility:R3Pqhxh: 43-70-1199okwlqstzzuZR KYLIE DIETRICH .Facility:C9Hwmkb: 11-12-2022 End: 56-63-0356juzdqhsajrRT KYLIE DIETRICH .Facility:L9Zktmp: 11-04-2022 Evaluation and management of inpatientTHEODORE BALLFacility:[facility] Start: 11-04-2022 End: 42-59-2344Mqobmujrar and management of inpatientOsst. p[facility] Outside Imaging Ct Scan SoOutside Imaging Second OpinionStart: 11-03-2022 End: 50-64-5762Hzuvbhahao and management of inpatientLUKE LAN Facility:[facility]ENTERtart: 11-03-2022 End: 13-46-4413zdjpnkovqzCN HANG Palacios LEVFacility:P5Vqbow: 11-02-2022 End: 11-77-8669Uikcahy encounter procedureKylie Restrepo DIETRICH [facility] start: 10-04-2022 End: 23-59-0217ympdfwvgiqDKShyla DIETRICH .Facility:D7Lbgzg: 09-28-2022 End: 50-39-8626lojruddfcaUIShyla Tysoncility:H6Xzwvh: 09-28-2022 End: 83-77-4814Mbpwflv encounter procedurePadaniel Restrepo DIETRICH [facility] start: 09-19-2022 End: 37-10-5236Atntxoo encounter procedureMarina Hooper [facility] start: 08-23-2022 End: 06-82-8746ynbjbfwqcnIWShyla DIETRICH .Facility:Q5Qwaax: 08-08-2022 End: 05-04-1097Kdkhdnr encounter procedureJEVALERIY [place] LAUREL [facility] start: 07-02-2022 End: 20-41-0266otcpgdtiojKOShyla Tysoncility:H3Ypqsp: 06-11-2022 End: 16-49-0757wzgmrnnktaOIShyla DIETRICH .Facility:U7Npwjp: 06-04-2022 End: 18-81-4749Thjbwbk encounter procedureKylie Restrepo DIETRICH [facility] start: 04-30-2022 End: 49-52-9534ptxkboyvcyHQShyla DIETRICH .Facility:Q9Eicdy: 04-25-2022 End: 47-29-5685Xkvdpjj encounter procedureMarina Irma Hooper [facility] start: 04-09-2022 End: 30-78-4307helbshisbiXO BENJAMIN BALLFacility:E1Ymhia: 04-06-2022 End: 50-52-7811btjbzfsrcgRCShyla ESTRELLAFacility:S5Bahrs: 04-02-2022 End: 80-25-3452dplosgirzvHZShyla DIETRICH .Facility:M9Imjor: 03-30-2022 End: 59-68-7017Hcutrbm encounter procedurePadaniel Restrepo DIETRICH [facility] start: 03-28-2022 End: 50-00-3778hhmsdjyvmvHMShyla ESTRELLAFacility:H8Ccuka: 03-05-2022 End: 60-32-6559dztanicfgqZZShyla DIETRICH .Facility:Q1Kafov: 03-02-2022 End: 97-05-1856Gitbzhc encounter procedurePadaniel Restrepo DIETRICH [facility] start: 02-07-2022 End: 78-52-6492qsltvoxeobQOShyla ESTRELLAFacility:K2Yvbie: 01-08-2022 End: 10-68-6761Chpufoj encounter procedurePadaniel Restrepo DIETRICH [facility] start: 63-02-5442KcyfeymnsrGHKFIATHugh [facility] AmbulatoryStart: 05-06-2017 End: 68-31-1158TfefmwdjjcXHVJTJRHugh [facility] Ambulatory Procedures DateProcedureProcedure DetailPerforming ClinicianStart: 73-84-6092Cuwptdahdp examination foot 2 viewsReanna Manav Wagner DPM Work Phone: Start: 94-69-7799Nwcoitdcls examination foot 2 views Reanna Em Bernard IVY Work Phone: Start: 43-75-0122Pm abdomen & pelvis w/contrast Rebecca Chaparro MD Work Phone: Start: 96-99-1456Dp thorax w/contrast Rebecca Chaparro MD Work Phone: Start: 74-59-8536Umtwl count complete auto&auto difrntl wbcEugene Chaparro MD Work Phone: Start: 32-66-9403Jlgyua scan of lower limb veins Lesa Ball DO Work Phone: Start: 95-94-8313Ca abdomen & pelvis w/contrast Rebecca Chaparro MD Work Phone: Start: 14-90-2206Wo thorax w/contrast Rebecca Chaparro MD Work Phone: Start: 82-71-9827Yrzb bld gluc mntr dev cleared fda spec home useCcf ProviderStart: 47-47-1062Hunkupyyf therapy carePatrick DIETRICH Start: 42-03-2619Xlseg cultureStart: 87-81-4553Inquw metabolic panel calcium totalEugene Chaparro MD Work Phone: Start: 50-77-3695Dzfec count complete auto&auto difrntl wbcMineloisa Saunders PA-C Work Phone: Start: 01-28-2024 End: 03-05-9105Laekcgrwdlclq metabolic panelMineloisa Saunders PA-C Work Phone: Start: 86-85-3116Ro thorax w/o contrast materialG Leigh Grajeda MD Work Phone: start: 05-31-0048Ypufgiig identified in Urine by CultureStart: 28-39-5337Lhiwdcheccuth resection of bladder neoplasmPatrick DIETRICH Start: 67-34-4951KT of small intestineDO Lesa Estrella Work Phone: Start: 04-12-1244Iiyhl of lactateChrisjeffrey Garcia MD Work Phone: Start: 26-73-1666Vlpja of lipaseLesa Read MD Work Phone: Start: 51-61-0757DFQ AND ELECTRONIC DIFFLesa Read MD Work Phone: Start: 44-15-4463Odqurebt blood count with white cell differential, automatedLesa Read MD Work Phone: Start: 66-39-2685Jcwjqtc function panelLesa Read MD Work Phone: Start: 70-89-8958AQ BLUE TOP Jenna Read MD Work Phone: Start: 82-46-1019TLXI GREEN TOP Jenna Read MD Work Phone: Start: 84-94-6175AqyoargffperqomfYaigjkye E Ball Work Phone: Start: 97-76-0716WR LHC & COR AngioDO Lesa Estrella Work Phone: Start: 94-48-0024NO Stent 1st Vessel CX DESDO Lesa Estrella Work Phone: Start: 32-41-2303Gw abdomen & pelvis w/contrast Kin Patton MD Work Phone: Start: 98-20-6070Qukfxwpyue and laser destruction of bladder lesionPatrick DIETRICH Start: 88-93-5755Uuyxlfiejnfxz resection of bladder neoplasmPatrick DIETRICH Start: 67-64-4099WavomuckvxaongVjqvhki DIETRICH Cardiac catheterizationBenjamin E Sameer Work Phone: Cardiac catheterizationPatrick DIETRICH Cataract (disorder)Kylie DIETRICH Comment on above:leftcolon resectionPatrick DIETRICH ColonoscopyPatrick DIETRICH ColonoscopyBenjamin E Ball Work Phone: History of placement of stent for coronary artery diseaseStatus post insertion of drug eluting coronary artery stentBenjamin E Ball Work Phone: Insertion of arterial stentBenjamin E Ball Work Phone: Operation on gallbladderBenjamin E Ball Work Phone: Comment on above:tumor removal;Partial resection of colonBenjamin E Ball Work Phone: Plan of Treatment DateCare ActivityDetailAuthorStart: 72-72-0420LSxC/Tdap/Td Vaccines (2 - Td or Tdap)DTaP/Tdap/Td Vaccines (2 - Td or Tdap)[facility] Start: 64-23-9581Owqgqgc vaccinationMorrow County Hospitaltart: 25-84-6108Wkkxp microalbumin profileDTaP,Tdap,Td Vaccine (3 - Td or Tdap) [facility]: 26-73-7284Zdhcsuwp ScreeningDiabetes ScreeningBellevue Hospitaltart: 97-62-2485Fywulnyq ScreeningDiabetes ScreeningCherrington Hospital Start: 40-91-3524Tmmklyfy ScreeningDiabetes ScreeningBellevue Hospitaltart: 56-82-7478Yacxzqqk ScreeningDiabetes ScreeningBellevue Hospitaltart: 03-25-2027 Diabetes ScreeningDiabetes ScreeningBellevue Hospitaltart: 17-91-1640Hopjqgke ScreeningDiabetes ScreeningBellevue Hospitaltart: 76-29-6455Qddzozpr Screening Diabetes ScreeningCleveland ClinicStart: 90-86-6269Vgtvsasf ScreeningDiabetes ScreeningBellevue Hospitaltart: 93-02-7499Vwhhxegz ScreeningDiabetes Screening [facility]: 18-16-3039Avnztzfq ScreeningDiabetes ScreeningBellevue Hospitaltart: 18-54-5307Vqcxmmgy ScreeningDiabetes ScreeningCherrington Hospital Start: 31-55-2270Qahkrsgx ScreeningDiabetes ScreeningBellevue Hospitaltart: 20-28-6221Qkrpujkz ScreeningDiabetes ScreeningBellevue Hospitaltart: 11-29-2025 End: 10-98-2968Pbarbs-up baatyxibb69/09/2026 10:00 AM EST Visit (SP) Office Hematology/Oncology [address] [place] [address] Eugene Chaparro MD [address] [place] [address] and lab resultsHematology/Oncology Comment on above:[address] and lab resultsStart: 11-22-2025 End: 30-08-1956Slwadph encounter tutkrvffp07/02/2026 9:45 AM EST Appointment Radiology Pet CT [address] [place] [address] Ct CAP with contrast and labRadiology Pet CTComment on above:Ct CAP with contrast and lab Start: 11-19-2025 End: 10-14-1943TUW W Auto Differential panel - BloodCOMPLETE BLOOD COUNT AND DIFFERENTIAL Lab Routine Malignant neoplasm of overlapping sites of bladder (HCC) Expected: 11/19/2025 (Approximate), [facility]: [facility] Comment on above:Expected: 11/19/2025 (Approximate), Expires: 05/19/2026Start: 11-19-2025 End: 04-67-3348Iqnlssxfkpraf metabolic 2000 panel - Serum or PlasmaCOMPREHENSIVE METABOLIC PANEL Lab Routine Malignant neoplasm of overlapping sites of bladder (HCC) Expected: 11/19/2025 (Approximate), Expires: 05/[facility]/20[facility] Comment on above:Expected: 11/19/2025 (Approximate), Expires: 05/19/2026Start: 11-19-2025 End: 58-73-4210UF Abdomen and Pelvis W contrast IVCT ABD/PEL W IVCON Radiology Routine Malignant neoplasm of overlapping sites of bladder (HCC) Expected: 11/19/2025 (Approximate), Expires: 06/18/2026[facility] Work Phone: Comment on above:Expected: 11/19/2025 (Approximate), Expires: 06/18/2026Start: 11-19-2025 End: 67-83-4235VS Chest W contrast IVCT CHEST W IVCON Radiology Routine Malignant neoplasm of overlapping sites of bladder (HCC) Expected: 11/19/2025 (Approximate), Expires: 06/18/2026[facility] HospitalComment on above:Expected: 11/19/2025 (Approximate), Expires: 06/18/2026Start: 10-27-2025 End: 55-92-8778Hejdyll encounter /07/2026 11:00 AM EST Office Visit [facility] [address] [facility] [address] [place] [address] George Morgan, [address] [facility] [address], [address] [place], [place] [phone]- [facility]Start: 07-16-2025 End: 76-13-2627Lkcbofo encounter zueuepena97/26/2025 11:15 AM EDT Office Visit [facility] [address] [place] [address] Reanna Wagner DPDinora [address] [place] [address] ArrivedNOMS Russell PodiatryComment on above:Arrived Start: 68-49-1148Uevnefgoz vaccinationInfluenza Vaccine (#1)[facility] Start: 10-59-3245nfxbikyanzYlkesqfhevOzanrgny:EU [facility]vueStart: 05-19-2025 End: 85-27-5668Jrlwkkf encounter hzmirntrw18/30/2025 9:30 AM EDT Office Visit Radiation Oncology [address] [place] [address] Suzanne Grajeda MD [address] [place] [address] follow upRadiation OncologyComment on above:follow upStart: 05-19-2025 End: 49-02-3527Rlqwzj-up welqnaeet72/30/2025 9:00 AM EDT Visit (SP) Office Hematology/Oncology [address] [place] [address] [place], [place] [phone] Eugene Chaparro MD [address] [place] [place] [address] 3 month follow up for lab and ct reviewHematology/Oncology Comment on above:3 month follow up for lab and ct reviewStart: 05-14-2025 End: 55-61-4541Oqrpsov encounter siuptgvqs37/25/2025 7:15 AM EDT Appointment Radiology Pet CT [address] [place] [address] [place] [address] Ct CAP with contrast and labRadiology Pet CTComment on above:Ct CAP with contrast and lab Start: 04-30-2025 End: 79-26-5334LIT W Auto Differential panel - BloodCOMPLETE BLOOD COUNT AND DIFFERENTIAL Lab Routine Malignant neoplasm of urinary bladder, unspecified site (HCC) Lung nodules Stage 3a chronic kidney disease (HCC) Anemia, unspecified type Malignant neoplasm of overlapping sites of bladder (HCC) Expected: 04/30/2025 (Approximate), Expires: 01/29/2026[facility] ClinicComment on above: Expected: 04/30/2025 (Approximate), Expires: 01/29/2026Start: 04-30-2025 End: 51-87-6851Nkoubcaog (Vitamin B12) [Mass/volume] in Serum or PlasmaVITAMIN B12 Lab Routine Malignant neoplasm of urinary bladder, unspecified site (HCC) Lung nodules Stage 3a chronic kidney disease (HCC) Anemia, unspecified type Malignant neoplasm of overlapping sites of bladder (HCC) Expected: 04/30/2025 (Approximate), Expires: 01/29/2026[facility] ClinicComment on above:Expected: 04/30/2025 (Approximate), Expires: 01/29/2026Start: 04-30-2025 End: 90-28-6675Dysuukcimvuly metabolic 2000 panel - Serum or PlasmaCOMPREHENSIVE METABOLIC PANEL Lab Routine Malignant neoplasm of urinary bladder, unspecified site (HCC) Lung nodules Stage 3a chronic kidney disease (HCC) Anemia, unspecified type Malignant neoplasm of overlapping sites of bladder (HCC) Expected: 04/30/2025 (Approximate), Expires: 01/29/2026[facility] ClinicComment on above:Expected: 04/30/2025 (Approximate), Expires: 01/29/2026Start: 04-30-2025 End: 84-53-0663YH Abdomen and Pelvis W contrast IVCT ABD/PEL W IVCON Radiology Routine Malignant neoplasm of urinary bladder, unspecified site (HCC) Lung nodules Stage 3a chronic kidney disease (HCC) Anemia, unspecified type Malignant neoplasm of overlapping sites of bladder (HCC) Expected: 04/30/2025 (Approximate), Expires: 02/28/2026[facility] Work Phone: Comment on above:Expected: 04/30/2025 (Approximate), Expires: 02/28/2026Start: 04-30-2025 End: 87-30-2686UB Chest W contrast IVCT CHEST W IVCON Radiology Routine Malignant neoplasm of urinary bladder, unspecified site (HCC) Lung nodules Stage 3a chronic kidney disease (HCC) Anemia, unspecified type Malignant neoplasm of overlapping sites of bladder (HCC) Expected: 04/30/2025 (Approximate), Expires: 02/28/2026[facility] ClinicComment on above:Expected: 04/30/2025 (Approximate), Expires: 02/28/2026Start: 04-30-2025 End: 36-26-1604Ixmtedyu [Mass/volume] in Serum or PlasmaFERRITIN Lab Routine Malignant neoplasm of urinary bladder, unspecified site (HCC) Lung nodules Stage 3a chronic kidney disease (HCC) Anemia, unspecified type Malignant neoplasm of overlapping sites of bladder (HCC) Expected: 04/30/2025 (Approximate), Expires: 01/29/2026[facility] ClinicComment on above:Expected: 04/30/2025 (Approximate), Expires: 01/29/2026Start: 04-30-2025 End: 58-09-2408Icylen [Mass/volume] in Serum or PlasmaFOLATE, SERUM Lab Routine Malignant neoplasm of urinary bladder, unspecified site (HCC) Lung nodules Stage 3a chronic kidney disease (HCC) Anemia, unspecified type Malignant neoplasm of overlapping sites of bladder (HCC) Expected: 04/30/2025 (Approximate), Expires: 01/29/2026[facility] ClinicComment on above:Expected: 04/30/2025 (Approximate), Expires: 01/29/2026Start: 04-30-2025 End: 59-21-0325Qtuc and Iron binding capacity panel - Serum or PlasmaIRON AND TIBC Lab Routine Malignant neoplasm of urinary bladder, unspecified site (HCC) Lung nodules Stage 3a chronic kidney disease (HCC) Anemia, unspecified type Malignant neoplasm of overlapping sites of bladder (HCC) Expected: 04/30/2025 (Approximate), Expires: 01/29/2026[facility] ClinicComment on above:Expected: 04/30/2025 (Approximate), Expires: 01/29/2026Start: 04-29-2025 End: 10-78-9895Hvdqxsc encounter procedureRadiation OncologyComment on above: follow upStart: 03-31-2025 End: 25-63-5141Ryioiss encounter baoiimwbo60/11/2025 8:30 AM EDT Office Visit [place] [id number] [address] Theodora Love, FINISHER POLISHER[employer]STITCHER SPECIAL MACHINE [address] [facility] [address], [address] [address] [facility]Start: 72-15-1923Ygnzci scan of lower limb veinsUS venous duplex LE [facility]: 48-39-3425EN Lower extremity vein - [facility]: 03-16-2025 End: 61-45-2134Xardyktq US Lower Extremity Venous Duplex LeftVascular US Lower Extremity Venous Duplex Left Vascular Ultrasound STAT Localized edema Expected: 03/16/2025 (Approximate), Expires: 03/16/2027[facility] Service Area Work Phone: Comment on above:Expected: 03/16/2025 (Approximate), Expires: 03/16/2027Start: 37-80-1813LVJRH-19 Vaccine ( season)COVID- 19 Vaccine ( season)[facility]: 01-27-2025 End: 89-95-8361Uwymqo-up xwelnhnfi19/09/2025 9:00 AM EDT Visit (SP) Office Hematology/Oncology [address] [place] [address] [place], [place] [phone] Eugene Chaparro MD [address] [place] [address] 3 month follow up after CT scanHematology/OncologyComment on above:3 month follow up after CT scanStart: 01-26-2025 End: 95-52-0073RUR W Auto Differential panel - BloodCOMPLETE BLOOD COUNT AND DIFFERENTIAL Lab Routine Malignant neoplasm of urinary bladder, unspecified site (HCC) Expected: 01/26/2025 (Approximate), Expires: 10/28/2025[facility] Comment on above:Expected: 01/26/2025 (Approximate), Expires: 10/28/2025Start: 01-26-2025 End: 96-70-9987Ywxolputhryoh metabolic 2000 panel - Serum or PlasmaCOMPREHENSIVE METABOLIC PANEL Lab Routine Malignant neoplasm of urinary bladder, unspecified site (HCC) Expected: 01/26/2025 (Approximate), Expires: 10/28/2025[facility] CenterComment on above:Expected: 01/26/2025 (Approximate), Expires: 10/28/2025 Start: 01-26-2025 End: 07-96-6182JY Abdomen and Pelvis W contrast IVCT ABD/PEL W IVCON Radiology Routine Malignant neoplasm of urinary bladder, unspecified site (HCC) Expected: 01/26/2025 (Approximate), Expires: 11/27/2025[facility] Work Phone: Comment on above:Expected: 01/26/2025 (Approximate), Expires: 11/27/2025Start: 01-26-2025 End: 44-49-8137HW Chest W contrast IVCT CHEST W IVCON Radiology Routine Malignant neoplasm of urinary bladder, unspecified site (HCC) Lung nodules Expected: 01/26/2025 (Approximate), Expires: 11/27/2025[facility] ClinicComment on above:Expected: 01/26/2025 (Approximate), Expires: 11/27/2025Start: 01-20-2025 End: 74-13-6722Nuktatt encounter xhmeszcmy64/02/2025 7:15 AM EDT Appointment Radiology Pet CT [address] [place] [address] CT CAP W IV Radiology Pet CTComment on above:CT CAP W IVStart: 11-04-2024 End: 37-43-9148Hyuzbtg encounter asdbryzef65/15/2025 11:00 AM EST Office Visit Radiation Oncology [address] [place] [address] Suzanne Grajeda MD [address] [place] [address] [place] [address] 3 month rvRadiation OncologyComment on above:3 month rvStart: 10-28-2024 End: 72-74-5496Yhxzan-up iveffivnw49/08/2025 11:20 AM EST Visit (SP) Office Hematology/Oncology [address] [place] [address] Eugene Chaparro MD [address] [facility] [place] [address] 3 month follow up after CT scanHematology/OncologyComment on above:3 month follow up after CT scanStart: 10-28-2024 End: 92-39-7382Ocbgjls encounter wjozmmkbr68/08/2025 10:30 AM EST Office Visit Radiation Oncology [address] [place] [address] [place] [address] Suzanne Grajeda MD [address] [place] [address] 3 month rvRadiation OncologyComment on above:3 month rvStart: 29-29-3501Gdalqbg Directive DiscussionAdvance Directive DiscussionBellevue Hospitaltart: 10-20-2024 End: 50-16-4027Ujjyvbs encounter qchezahoh83/31/2024 12:45 PM EST Appointment Radiology Pet CT [address] [place] [address] PET Radiology Pet CTComment on above:PETStart: 77-24-4851Cwwcrzqb mellitus screening Diabetes ScreeningTuscarawas HospitalStart: 10-07-2024 End: 08-90-7337Wqjsuh-up qfngducrt10/18/2024 10:30 AM EST Visit (SP) Office Hematology/Oncology [address] [place] [address] Eugene Chaparro MD [address] [place] [address] [place] [address] 3 month follow up after CT scanHematology/OncologyComment on above:3 month follow up after CT scanStart: 09-30-2024 End: 21-52-7064NWR W Auto Differential panel - BloodCOMPLETE BLOOD COUNT AND DIFFERENTIAL Lab Routine 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) Anemia, unspecified type Expected: 09/30/2024 (Approximate), Expires: 07/01/2025 [facility] Work Phone: Comment on above:Expected: 09/30/2024 (Approximate), Expires: 07/01/2025Start: 09-30-2024 End: 10-69-8683Mpuxtioqy (Vitamin B12) [Mass/volume] in Serum or PlasmaVITAMIN B12 Lab Routine 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) Anemia, unspecified type Expected: 09/30/2024 (Approximate), Expires: 07/01/2025 [facility] HospitalComment on above:Expected: 09/30/2024 (Approximate), Expires: 07/01/2025Start: 09-30-2024 End: 13-91-7395Bjvqlgnxbegrx metabolic 2000 panel - Serum or PlasmaCOMPREHENSIVE METABOLIC PANEL Lab Routine 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) Anemia, unspecified type Expected: 09/30/2024 (Approximate), Expires: 07/01/2025[facility] ClinicComment on above:Expected: 09/30/2024 (Approximate), Expires: 07/01/2025Start: 09-30-2024 End: 34-72-9251AI Abdomen and Pelvis W contrast IVCT ABD/PEL W IVCON Radiology Routine 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) Expected: 09/30/2024 (Approximate), Expires: 07/31/2025[facility] ClinicComment on above: Expected: 09/30/2024 (Approximate), Expires: 07/31/2025Start: 09-30-2024 End: 73-98-9235Jfhbfkmy [Mass/volume] in Serum or PlasmaFERRITIN Lab Routine 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) Anemia, unspecified type Expected: 09/30/2024 (Approximate), Expires: 07/01/2025[facility] ClinicComment on above:Expected: 09/30/2024 (Approximate), Expires: 07/01/2025Start: 09-30-2024 End: 99-39-8060Lpkfeg [Mass/volume] in Serum or PlasmaFOLATE, SERUM Lab Routine 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) Anemia, unspecified type Expected: 09/30/2024 (Approximate), Expires: 07/01/2025[facility] ClinicComment on above:Expected: 09/30/2024 (Approximate), Expires: 07/01/2025Start: 09-30-2024 End: 24-49-9345Hoow and Iron binding capacity panel - Serum or PlasmaIRON AND TIBC Lab Routine 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) Anemia, unspecified type Expected: 09/30/2024 (Approximate), Expires: 07/01/2025 [facility] ClinicComment on above:Expected: 09/30/2024 (Approximate), Expires: 07/01/2025Start: 09-30-2024 End: 07-56-7747Ekxyswi encounter orgryyjym16/08/2024 9:15 AM EST Appointment Radiology Pet CT [address] [place] [address] CT CAP W IV labsRadiology Pet CTComment on above:CT CAP W IV labsStart: 09-28-2024 End: 98-20-2285Rpvipby encounter cnklmamgl87/09/2024 2:00 PM EST Office [facility] [address] [place] [address] Memo Mccall MD [address] [address] Inflammatory Bowel Disease [facility] Start: 07-27-2024 End: 00-54-7757Lsibnuh encounter xhlnkalhi68/07/2024 1:40 PM EDT Office Visit Colorectal Surgery RICKY MACDONALD [address] [place], [place] [phone] [place] [address] [place] [address] Chaparro possible bowel stricturesColorectal SurgeryComment on above:From Dr. Chaparro possible bowel stricturesStart: 07-01-2024 End: 25-73-8189Tatkbk-up nfgbtgzyv94/11/2024 2:15 PM EDT Visit (SP) Office Hematology/Oncology [address] [place], [place] [phone] Eugene Chaparro MD [address] [place] [address] Followup after Radiation-Sees FEDERICO after GENA Hematology/OncologyComment on above:Followup after Radiation-Sees FEDERICO after GENA Start: 07-01-2024 End: 44-89-9184Rvotokp encounter procedureNortSelect Specialty Hospital LaboratoryComment on above:Lab3 month rvStart: 61-13-3183Uttlhcgkvekteaxb EchocardiogramTuscarawas HospitalStart: 21-39-3739Cvlrq-19 Vaccine (7 - 2023-24 season)Covid-19 Vaccine ()[facility]: 41-03-0301Ojaos-19 Vaccine ()Covid-19 Vaccine ()[facility]: 49-90-4969Logfwzurn vaccinationInfluenza Vaccine (#1)[facility]: 05-20-2024 End: 35-00-3281Lrsizvu encounter /31/2024 9:50 AM EDT Office Visit [facility] [address] [facility] [address] [place] [address] George Morgan, [facility] [facility], [address] [place] [address] [facility]Start: 03-25-2024 End: 79-99-3785Dommwe-up encounterHematology/OncologyComment on above:Followup after RadiationFollowup after Radiation-Sees FEDERICO after VIKStart: 03-25-2024 End: 13-03-1510Tasklxq encounter procedurertSelect Specialty Hospital LaboratoryComment on above:Lab3 week rvStart: 03-02-2024 End: 31-81-2918Qrvxlmf encounter procedureRadiation OncologyComment on above: Bladder Boost - EMPTYLocation: SA-ON TREATMENT REVStart: 02-28-2024 End: 24-71-1856Hklpsxp encounter /10/2024 9:00 AM EDT Appointment Radiation Oncology [address] [place] [address] Bladder Boost - EMPTYRadiation OncologyComment on above:Bladder Boost - EMPTYStart: 02-27-2024 End: 34-20-9368Howsdkd encounter kpknzwsaw98/09/2024 9:00 AM EDT Appointment Radiation Oncology [address] [place] [address] Bladder Boost - EMPTYRadiation OncologyComment on above:Bladder Boost - EMPTYStart: 02-26-2024 End: 46-27-9289Hffxbx-up luqhesuna49/08/2024 10:15 AM EDT Visit (SP) Office Hematology/Oncology [address] [place] [address] Eugene Chaparro MD [address] [place] [address] 2 week follow up with lab / Tox checkHematology/Oncology Comment on above:2 week follow up with lab / Tox checkStart: 02-26-2024 End: 69-27-9085Dlewyrk encounter procedureRadiation OncologyComment on above: Bladder Boost - EMPTY2 week follow up with lab / Tox checkBladder Boost - EMPTY- lab 10 umesh 1015Start: 02-25-2024 End: 00-79-8589Fgeickd encounter tdacllbwx61/07/2024 9:00 AM EDT Appointment Radiation Oncology [address] [place] [address] Bladder Boost - EMPTYRadiation OncologyComment on above:Bladder Boost - EMPTYStart: 02-24-2024 End: 56-05-2729Rfelkcg encounter procedureRadiation OncologyComment on above: Bladder Boost - EMPTYLocation: SA-ON TREATMENT REVStart: 02-21-2024 End: 63-46-7339Wrkfbds encounter sipumyvdk52/03/2024 9:00 AM EDT Appointment Radiation Oncology [address] [place] [address] Bladder Boost - EMPTYRadiation OncologyComment on above:Bladder Boost - EMPTYStart: 02-20-2024 End: 02-49-4354Lxvrwhq encounter plqraxnna88/02/2024 9:00 AM EDT Appointment Radiation Oncology [address] [place] [address] Bladder Boost - EMPTYRadiation OncologyComment on above:Bladder Boost - EMPTYStart: 02-19-2024 End: 82-83-8154Zxesgjlp identified in Urine by CultureCherrington HospitalComment on above:Expected: 02/19/2024 (Approximate), Expires: 05/20/2024Start: 02-19-2024 End: 08-10-5538KA DIP, URINE (POC)UA DIP, URINE (POC) Lab Routine 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) Expected: 02/19/2024 (Approximate), Expires: 05/20/2024[facility] Work Phone: Comment on above:Expected: 02/19/2024 (Approximate), Expires: 05/20/2024Start: 02-19-2024 End: 92-58-4626Qxpipn-up /01/2024 9:30 AM EDT [facility] Hematology/Oncology [address] [place] [address] Shila, Chair [address] [place] [address] [place] [address] 1 week lab follow up and chemotx Cisplatin w/ XRTHematology/OncologyComment on above:1 week lab follow up and chemotx Cisplatin w/ XRTStart: 02-19-2024 End: 06-16-1950Kiqyiyh encounter wxsiuazxr18/01/2024 9:00 AM EDT Appointment Radiation Oncology [address] [place] [address] [place] [address] Bladder Boost - EMPTYRadiation OncologyComment on above:Bladder Boost - EMPTYStart: 02-18-2024 End: 78-87-1434Yczrlzj encounter procedureRadiation OncologyComment on above: START BLADDER BOOSTBladder Boost - EMPTYStart: 02-17-2024 End: 34-67-8373Ddckdro encounter procedureRadiation OncologyComment on above: Bladder - EMPTYLocation: SA-ON TREATMENT REVStart: 02-14-2024 End: 90-60-9289Fxcghhi encounter /26/2024 9:30 AM EDT Appointment Radiation Oncology [address] [place] [address] [place] [address] Bladder - EMPTYRadiation OncologyComment on above:Bladder - EMPTYStart: 02-13-2024 End: 88-73-1984Orhxlcj encounter bwlyxxqtv98/25/2024 9:30 AM EDT Appointment Radiation Oncology [address] [place] [address] [place] [address] Bladder - EMPTYRadiation OncologyComment on above:Bladder - EMPTYStart: 02-12-2024 End: 76-68-4020Moepkp-up encounterHematology/OncologyComment on above:1 week lab follow up and chemotx Cisplatin w/ XRT-Radiation Prior1 week lab follow up and chemotx Cisplatin w/ XRTStart: 02-12-2024 End: 31-16-3114Kivzwic encounter procedureEast [facility] LaboratoryComment on above:1 week lab follow up and chemotx Cisplatin w/ XRT Bladder - EMPTY- labs 9:15, Gena 9:45 chemo 10Start: 02-11-2024 End: 58-28-1265Ddpeoie encounter /23/2024 9:30 AM EDT Appointment Radiation Oncology [address] [place] [address] [place] [address] Bladder - EMPTYRadiation OncologyComment on above:Bladder - EMPTYStart: 02-04-2024 End: 93-11-5452LVX W Auto Differential panel - BloodCBC + DIFF Lab Routine 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) Expected: 02/04/2024 ( Approximate), Expires: 05/05/2024[facility] Work Phone: Comment on above:Expected: 02/04/2024 (Approximate), Expires: 05/05/2024Start: 02-04-2024 End: 59-01-9106Fmipbwaxftlme metabolic 2000 panel - Serum or PlasmaCOMP METABOLIC PANEL Lab Routine 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) Expected: 02/04/2024 (Approximate), Expires: 05/05/2024[facility] Work Phone: Comment on above:Expected: 02/04/2024 (Approximate), Expires: 05/05/2024Start: 02-04-2024 End: 99-67-8486Eaczddzeg [Mass/volume] in Serum or PlasmaMAGNESIUM BLD Lab Routine 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) Expected: 02/04/2024 (Approximate), Expires: 05/05/2024[facility] Work Phone: Comment on above:Expected: 02/04/2024 (Approximate), Expires: 05/05/2024Start: 49-56-4291DWG, Provider: George Morgan, Status: Pen, Time: 9:20 AMFUV, Provider: George Morgan, Status: Pen, Time: 9:20 AMMP-[facility]Du[facility] Work Phone: Start: 67-00-3855Xpeypgm Directive DiscussionAdvance Directive DiscussionBellevue Hospitaltart: 53-43-7800Huwbczzayz Health Screening Behavioral Health ScreeningBellevue Hospitaltart: 84-96-5245Fkkqricshl AssessmentDepression AssessmentBellevue Hospitaltart: 34-59-5739DNQT, Provider: SHILA HHVI ULTRASOUND 01,[id number], Status: Pen, Time: 12:30 PMECHO, Provider: SHILA HHVI ULTRASOUND 01,[id number], Status: Pen, Time: 12:30 PMMP- [facility] [address] DO Work Phone: Start: 38-14-5106Xlbgh-19 Vaccine ( season) Covid-19 Vaccine ( season)[facility]: 95-85-9443UWJVA-19 VACCINE ( season)COVID-19 VACCINE ( season)[facility]: 03-64-3818Mzhmz-19 Vaccine ( season)Covid-19 Vaccine ( season)[facility]: 57-29-0699Csfsgnudl vaccinationINFLUENZA VACCINE (#1)[facility] 04-23-2023 [facility] 04-22[facility]2023 End: 14-62-3368Vxeuhqze to cardiologistKettering Health Springfieldtart: 43-19-1700Wpfqvzkc to cardiac rehabilitation programKettering Health Springfieldtart: 25-73-9804Rekqdhyo admissionKettering Health Springfieldtart: 54-07-6903APHWGLK DIRECTIVE DISCUSSIONADVANCE DIRECTIVE DISCUSSIONBellevue Hospitaltart: 15-88-9198LVTNKDEGZB ASSESSMENTDEPRESSION ASSESSMENTBellevue Hospitaltart: 51-66-5744Dkvjyuxlm vaccinationINFLUENZA (#1)[facility]: 23-56-5675Oagllanbofvt vaccinationPNEUMOCOCCAL VACCINE SERIES (2 - PCV)[facility]: 06-26-9599Eondqvvpqfjb Vaccine: 65+ Years (2 - PCV) Pneumococcal Vaccine: 65+ Years (2 - PCV)[facility]: 79-60-1065CVDIFAMY SCREENDIABETES SCREENBellevue Hospitaltart: 82-32-9157FNG Vaccine (1 - 1-dose 75+ series)RSV Vaccine (1 - 1-dose 75+ series)[facility]: 06-01-2003Medicare Annual Wellness VisitMedicare Annual Wellness VisitBellevue Hospitaltart: 41-62-6085ZJNSIZAYMOHE: 65+ (1 - PCV)PNEUMOCOCCAL: 65+ (1 - PCV)[facility]: 86-99-5267YAP Vaccine (1 - 1-dose 60+ series)RSV Vaccine (1 - 1-dose 60+ series)[facility]: 1985 SHINGRIX VACCINE (1 of 2)SHINGRIX VACCINE (1 of 2)[facility]: 82-99-7997Mkywhhmez for malignant neoplasm of colonCOLORECTAL CANCER SCREENING DISCUSSIONOSMet[facility] Centertart: 96-98-1918Gypknnee Vaccine (1 of 2) Shingrix Vaccine (1 of 2)[facility]: 28-51-0847Xuodg microalbumin profileBellevue Hospitaltart: 05-32-8664Qhrrnjz ScreeningAnxiety Screening [facility]: 02-98-1794Cfuxydrwkc ScreeningDepression Screening [facility]: 22-12-1465Thjweucratnk Vaccine: 65+ (1 of 2 - PCV) Pneumococcal Vaccine: 65+ (1 of 2 - PCV)[facility]: 91-26-2252WKZUS- 19 VACCINE (#1)COVID-19 VACCINE (#1)[facility]: 61-91-0625Nrfcquyhnb measurementCreatinine LevelUniversity Hospitals [facility]: 1935 Lipid panelLipid PanelUniversity Hospitals Elyria Medical Center: 1936Medicare Annual Wellness VisitMedicare Annual Wellness Visit (AWV)[facility]: 09-56-7621Tdvzwxvwh measurementPotassium LevelTuscarawas HospitalCalprotectin [Mass/mass] in [facility] End: 80-66-1319KZA W Auto Differential panel - BloodCBC + DIFF Lab Routine 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) Once per week for 30 O ccurrences starting 01/03/2024 until 01/02/2025, 1 completed[facility] Work Phone: Comment on above:Once per week for 30 Occurrences starting 01/03/2024 until 01/02/2025, 1 completed End: 86-44-1198Ensamenxcqgnb metabolic 2000 panel - Serum or PlasmaCOMP METABOLIC PANEL Lab Routine 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) Every otherweek for 26 Occurrences starting 01/03/2024 until 01/02/2025, 1 completedUniversity [facility] Work Phone: Comment on above:Every other week for 26 Occurrences starting 01/03/2024 until 01/02/2025, 1 completed End: 94-61-9205LQ Chest W contrast IVCT CHEST W IVCON Radiology Routine 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) 1 Occurrences starting 07/01/2024 until 07/31/2025leveland ClinicComment on above:1 Occurrences starting 07/01/2024 until 07/31/2025T Guidance for radiation treatment of Unspecified body regionCT SIM PLANNING RADIATION ONCOLOGY Radiology Routine 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) Ordered: 01/13/2024 [facility] Work Phone: Comment on above:Ordered: 01/13/2024 End: 97-20-1448MKQL TOP TUBEGreene Memorial HospitalComment on above:Once for 1 Occurrences starting 10/09/2023 until 10/09/2023 End: 78-02-6589JHLIMWDK TOP TUBEGreene Memorial HospitalComment on above:Once for 1 Occurrences starting 10/09/2023 until 10/09/2023OCCULT BLD EXAM-DIAGOCCULT BLD EXAM-DIAG Microbiology Routine 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) Dark stools 02/07/2024 9:14 AM EDTCHolmes County [facility] Work Phone: Patient EducationCoronary Angioplasty (DC) Coronary Stenting (DC) Angina (DC) Chest Pain (DC) Drug Eluting [facility]Kn[facility] Work Phone: Patient referralKnox Community Hospital Ctr Work Phone: PET+CT Guidance for localization of tumor of Skull base to mid-thigh-- W 18F-FDG IVNM PET/CT SKULL-THIGH SUBSEQUENT Radiology Routine Malignant neoplasm of urinary bladder, unspecified site (HCC) 10/20/2024 1:28 PM [facility] Work Phone: End: 29-61-6200LBMCGOPAultman Orrville Hospital Work Phone: Comment on above:One Time for 1 Occurrences starting 10/09/2023 until 10/09/2023 End: 65-88-7286WV Lower extremity vein - bilateralUS DVT LOWER BILATERAL Radiology Routine 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) Edema leg 1 Occurrences starting 02/17/[address] [place] [address] Work Phone: Comment on above:1 Occurrences starting 02/17/[address] [place] [address] Immunizations Immunization DateImmunizationNotesCare GjhfufhgKmmoknzv15-47-3936GKL, 60 Years And Older (AREXVY)Theodora Love FINISHER [employer] Work Phone: [facility] Work Phone: [phone], high dose seasonal, preservative-Shelton Love FINISHER [employer]ACHINE Work Phone: [facility]11-22-2024influenza virus vaccine, unspecified formulationAr[facility] Work Phone: [phone] Newman StreetJofmch46-36-5920Tjxvengweksn conjugate vaccine, 20-valent (PREVNAR 20)Theodora Love FINISHER [employer]INE Work Phone: [facility] Work Phone: [phone]hm nasal, unspecified formulation Sherron Singh RN Work Phone: [facility] HospitalVkevat26-59-4776criptnrjo virus vaccine, unspecified formulationMartin [facility] Hospital09-18-2023influenza, high dose seasonal, preservative-freeBenalida Estrella Other [facility] HospitalAspgfk11-93-9914zfagsjx toxoid, reduced diphtheria toxoid, and acellular pertussis vaccine, adsorbedBenjamin Darvin Estrella Work Phone: [facility] HospitalFnmxbs87-71-8162RVLYF-35 Pfizer (Pediatric) Lesa Estrella Other [facility]11-10-2022Pfizer COVID-19 Vac Bivalent 30 MCG/0.3ML Intramuscular SuspensionBenjamin Darvin Estrella Work Phone: [facility] HospitalZsnlgg20-13-1877Ogocz Quadrivalent 0.5 ML Intramuscular Prefilled SyringeBenjamin Darvin Estrella Work Phone: [facility] HospitalUdlwrk87-62-0901ujxcoavbg nasal, unspecified formulationSherron Singh RN Work Phone: [facility] HospitalMrswre97-50-2504cqvcefusg virus vaccine, split virus (incl. purified surface antigen)Lesa Estrella Other [facility] Other [id number] virus vaccine, unspecified formulationReanna Sun MD Work Phone: [facility]04-01-2022Comirnaty 30 MCG/0.3ML Intramuscular SuspensionBenjamin E Sameer Work Phone: [facility] HospitalBactgd78-30-6882HPWID-77 Vaccine Pfizer - Documentation Purposes OnlyBenjamin Sameer Other [facility] HospitalWnrmon27-61-5599kmniha vaccine recombinant Lesa Estrella Work Phone: [facility] HospitalIpcjqs88-39-6034wadfgmzntc, tetanus toxoids and acellular pertussis vaccine, unspecified formulationBenalida Estrella Other [facility] HospitalVvragz68-69-6644hoewuqpbi nasal, unspecified formulationSherron Singh RN Work Phone: [facility] HospitalYcljlx40-11-1337qyrogfbcr virus vaccine, split virus (incl. purified surface antigen)Lesa Estrella Other [facility] HospitalCdnmrt29-90-0979bjdidcnvl virus vaccine, unspecified formulationMartin [facility] Hospital10-07-2021influenza, seasonal, injectable, preservative freeBenjabelkis Estrella Work Phone: [facility] HospitalQwbihs14-30-4386Zxlfsc-ObgPUehj COVID-19 Vacc 30 MCG/0.3ML Intramuscular SuspensionBenjamin E Sameer Work Phone: [facility] HospitalFblcwb33-19-3151sbzuwk vaccine recombinant Lesa Estrella Work Phone: [facility] HospitalAwjjcc02-53-9438Vzsgaz-FhgMHjhd COVID-19 Vacc 30 MCG/0.3ML Intramuscular SuspensionBenjamin E Sameer Work Phone: [facility] HospitalFraulj73-89-4017Vnfmoa-FhkUAvih COVID-19 Vacc 30 MCG/0.3ML Intramuscular SuspensionBenjamin E Sameer Work Phone: [facility] HospitalCggzpx04-31-5984ehpfsgvc [place]oss[place] vaccinePatrick ColdSpark [facility] 11-517223-02-4049rkgoefor [place] vaccinePatrick ColdSpark [facility] 11-068583-51-1758rceixgic [place] vaccinePaskedge.me [facility] 11767958-54-0747immotgdc [place] vaccineGallup Indian Medical Center [facility] 10569146-14-8234xvxapeoe calmet[place]-blossom vaccineGallup Indian Medical Center [facility] 10-400456-16-7178deprgtyr [place] vaccineMurray-Calloway County Hospitalm0um0u [facility] 09-973323-38-2994vihbozswp nasal, unspecified formulation Sherron Singh RN Work Phone: [facility] HospitalTarmkm60-84-4579nmbjemybt virus vaccine, split virus (incl. purified surface antigen)Lesa Estrella Other [facility] HospitalRoqupp02-89-6435fegvwfrso virus vaccine, unspecified formulationMartin [facility] Hospital10-14-2019influenza, seasonal, injectableBenjamin E Ball Work Phone: [facility] HospitalHnfita32-75-5064gfnlesdwg nasal, unspecified formulationSherron Singh RN Work Phone: [facility] HospitalYpkzaz50-04-7149dwmclkwzf virus vaccine, split virus (incl. purified surface antigen)Lesa Estrella Other [facility] HospitalZibnzf79-15-5556mmphxtqhm virus vaccine, unspecified formulationMartin [facility] Hospital09-25-2018AS03 adjuvant Financial Maninder Work Phone: [facility] HospitalQxrrim85-41-4296ltdcpesms nasal, unspecified formulationSherron Singh RN Work Phone: [facility] HospitalFsjgvk79-29-5336ncbftuhaa virus vaccine, split virus (incl. purified surface antigen)Lesa Estrella Other [facility] HospitalVinzea81-23-8829lcesksjdn virus vaccine, unspecified formulationMartin [facility]09-25-2018Seasonal trivalent influenza vaccine, adjuvanted, preservative freeBenjamin E Ball Work Phone: [phone]-CstfpWelia Health-Shila 250 DO Work Phone: [phone] 311-933001711049-20-2032fiytuzfgdydg polysaccharide vaccine, 23 valentBenjamin E Ball Work Phone: [facility] HospitalFumlwf95-84-3532hpelsmeoo nasal, unspecified formulationSherron Singh RN Work Phone: [facility] HospitalZyoisi93-02-5327ytryeppur virus vaccine, split virus (incl. purified surface antigen)Lesa Estrella Other [facility] HospitalKlhnvz05-26-3507lrurzolvq virus vaccine, unspecified formulationMartin [facility] Hospital09-07-2016pneumococcal conjugate vaccine, 13 valentBenjamin Ball Other [facility] HospitalQbhtpe10-70-8674wtofxq vaccine, liveBenjamin E Sameer Work Phone: [facility] Payers DatePayer CategoryPayerPoly [id number]-lex [id number] 2023Unknown2016Medicare supplemental policy (as second payer)[employer] SENIOR SUPPLE[employer] [id number] Health [id number] 2003Medicare 1.2.840.3741[id number] [id number] 1960Private Health [id number] [id number] 2.0.1.923471.3.57[id number] 2.0.1.112281.3.57[id number] 2.0.1.505493.3.57[id number] 2.840.1.443496.3.579.2.46778-13-5286Zsgcxky2648622 2.0.1.667422.3.579.[id number] 2.840.1.467200.3.579.2.84245-32-1472Oqhoicj4982475 2.0.1.229212.3.579.2.10614-76-4226Jizrhhp8802461 2.840.1.773260.3.579.2.11229-20-0006Cxiqkhf2577511 2.0.1.260390.3.579.2.21244-77-7925Fjzvasf1254306 2.840.1.359166.3.579.2.17429-52-6668Evxagpq9844303 2.840.1.299341.3.579.2.53393-16-7666Iyjaimd5537278 2.16840.1.512119.3.579.2.17394-24-2234Gcaiogx6365860 2.840.1.729202.3.579.2.00529-06-3338Cuelmlf8441470 2.840.1.324466.3.579.2.44456-60-7782Zceuvts6817735 2.840.1.456189.3.579.2.84543-90-8187Lrwmdgs4078809 2.840.1.229562.3.579.2.00003-40-6626Xfjsvxb1487625 2.840.1.564629.3.579.2.04482-38-7976Icbnhwj8389763 2.840.1.443050.3.579.2.54920-34-0688Ejxzzzw0553172 2.840.1.757219.3.579.2.35792-52-6375Njzptye2835027 2.840.1.800803.3.579.2.49167-70-2200Cqfgonf4829491 2..1.548840.3.579.2.79266-54-7164Fmifnji50251564 2.840.1.764952.3.579.2.360131-53-4248Vmukhpt440170370 2.840.1.700951.3.579.2.02969-29-6537Stfrlei262145830 2.840.1.076002.3.579.2.20702-65-5617Qmodwpl526828433 2.840.1.975866.3.579.2.31900-85-1395Wvyhkaj80198178 2.16.840.1.486111.3.579.2.34530-64-2769Mzzgtoo85671093 2.16840.1.734151.3.579.2.99593-12-6890Tmltolh23297629 2.16840.1.011336.3.579.2.74012-55-6017Utovuig66296443 2.840.1.712379.3.579.2.96506-51-8015Kydgnoz46007377 2.840.1.153627.3.579.2.79533-91-8172Lmcjdge938931279 2.840.1.820495.3.579.2.741370-29-5200Fjgrjrl211107661 2.0.1.793329.3.579.2.459826-33-7823Rwwrvyt54719370 2.840.1.432916.3.579.2.478283-75-0822Yutzhqm30023959 2.0.1.509889.3.579.2.25389-42-0823Gakadxb03145745 2.840.1.659260.3.579.2.22036-66-6938Kbwyvlz66771990 2.840.1.590838.3.579.2.39367-36-9940Uavkiun69975086 2.840.1.159213.3.579.2.52263-66-5787Tufddhj87990022 2.840.1.497124.3.579.2.46448-33-2813Xrbmevt23446372 2.16840.1.994222.3.579.2.20539-74-7383Yklqwuw03454639 2.840.1.926723.3.579.2.16803-54-2208Zbzzfgf64349898 2.16.840.1.839619.3.579.2.56472-73-3757Cnrpdjl67464340 2.16.840.1.216889.3.579.2.02852-59-7943Qtsbpyj22589329 2.16.840.1.941019.3.579.2.130324-67-7859Xbtzlse26558219 2.16.840.1.379612.3.579.2.314606-92-5789Fmfmbvj64346217 2.16.840.1.521107.3.579.2.2624Bivyfvp54057099 2.16.840.1.898270.3.579.2.531 Roejmhv42734751 2.16.840.1.128455.3.579.2.371Xerskxe11084534 2.16.840.1.981378.3.579.2.531 Social History DateTypeDetailFacilityStart: 09-01-2021 End: 48-63-4649Gparcfp smoking statusNever smoked tobacco (finding)[facility] start: 11-04-2022 End: 18-28-9518Kxe Assigned At BirthMaleExcritical access hospital [facility] start: 01-23-2012 End: 13-90-8364Bgajfgt use and exposureSmokeless tobacco non-userCherrington Hospital Work Phone: Start: 01-14-2023 End: 84-55-3833Ybfiekn intakeCurrent drinker of alcohol (finding)[facility]: 25-65-4277Lwyxkny Comment1/5 of whiskey every 6 monthsBellevue Hospitaltart: 00-31-0012Khv Assigned At BirthNot on fileBellevue Hospitaltart: 92-86-3580Gjv Assigned At BirthZanesville City Hospitaltart: 11-04-2022 End: 88-40-3275Qz illicit drug useNo illicit drug useBellevue Hospitaltart: 86-24-5816Rkewcdy intakeLifetime non-drinker (finding)[facility] Start: 70-71-5713Qdgaanq CommentbeerTuscarawas Hospital Work Phone: Start: 11-10-2023 End: 86-81-8590Cvgfsbir to SARS-CoV-2 (event)Not sureTuscarawas HospitalNational Score (1-100), lower number is lower mp[address] [place] [address] Start: 28-29-1547Awcyfbi Commentbeer [facility] Daytontart: 07-19-2010 End: 62-67-6726SuiBleu (finding)[facility]: 06-30-6969Xjfzwyx Commentnot very oftenTuscarawas Hospital Work Phone: Sexual OrientationExecutive Urology of [facility] Tobacco smoking status NHISTobacco smoking consumption unknownNOMS Healthcare Medical Equipment Procedure CodeEquipment CodeEquipment Original TextEquipment IdentifierDatesCL STENT GLENNY FRONTIER 3.0 X 12FDAStart: 26-82-8336ZZ STENT GLENNY FRONTIER 3.0 X 12 FDAStart: 34-86-5166AF STENT GLENNY FRONTIER 3.0 X 12FDAStart: 63-96-5336LS STENT GLENNY FRONTIER 3.0 X 12FDAStart: 31-17-4542NU STENT GLENNY FRONTIER 3.0 X 12FDA Start: 72-40-8774DR STENT GLENNY FRONTIER 3.0 X 12FDAStart: 46-91-5619ID STENT GLENNY FRONTIER 3.0 X 12FDAStart: 84-30-2557FI STENT GLENNY FRONTIER 3.0 X 12FDA Start: 22-05-3557OG STENT GLENNY FRONTIER 3.0 X 12FDAStart: 50-47-7227KY STENT GLENNY FRONTIER 3.0 X 12FDAStart: 04-22-2023 Goals DatePatient GoalDesired Activity/State Functional Status QelsBzcsvodgnvRflmhxLyrshvje02-15-6591Dwhzpekwqy StatusN/AExecutive Urology of [facility]woodsue07-01-2024Functional StatusN/AExec[facility]02-15-2024Functional StatusNo [facility]07-04-2023Functional statusPatient at Baseline [facility] Work Phone: Mental Status ZsjpAiedmwselnPslaobIpyfkmrt92-68-3926Jwcwkvxcp functionCognitive Status Patient at BaselineLicking [facility] Hospital Work Phone: Clinical Notes 07-22-1994 to 07-16-2025 Note Date & HtqcAznmFypkbdhd62-75-2057 History of Present illness Narrative* Reanna Wagner DPM - 07/16/2025 11:15 AM EDT Kennedy Kong is a 89 y.o. male presents with chief complaint of Toe Problem (B/l 1st toes turning up) HPI: HPI PT has b/l 1st toes turning up for unknown amount of time and worsening. It makes him feel doppy .Denies any pain or injury in toes. He is concerned that this will become a worse problem if not addressed soon. Tender at times, some nail thickening and hard to trim Numb toes at times, SUBJECTIVE: Review of Systems General: Chillsdenies. Feverdenies. Musculoskeletal: muscle weaknessdenies. Bone/joint symptomsdenies. Peripheral Vascular: Edemadenies. Hx of blood clots in legsdenies. Raynaud'sdenies. Rest pain denies. Ulceration of feetdenies. Varicose veinsdenies. Skin: Hyperpigmentationdenies. Nail changesdenies. Rashdenies. Skin lesion(s)denies. Neurologic: Gait abnormalitydenies. Tingling/Numbnessdenies. MEDICATIONS: Current Outpatient Medications Medication Instructions acetaminophen (TYLENOL 8 HOUR) 650 mg, Every 8 hours PRN Aspirin Low Dose 81 MG chewable tablet CHEW 1 TABLET ONCE DAILY carvedilol (Coreg) 6.25 MG tablet TAKE 1 TABLET (6.25 MG) BY MOUTH 2 TIMES A DAY. TAKE WITH FOOD. furosemide (Lasix) 20 MG tablet TAKE 1 TABLET (20 MG) BY MOUTH ONCE DAILY NEEDED (EDEMA). Gemtesa 75 mg loratadine (CLARITIN) 10 mg losartan (COZAAR) 25 mg, Daily omega-3 (fish oil) 1200 MG capsule Daily RT rosuvastatin (CRESTOR) 40 mg, Daily sildenafil (Viagra) 50 MG tablet TAKE 1-2 TABLETS BY MOUTH 1 HR BEFORE SEXUAL ACTIVITY. DO NOT EXCEED 2 TABS/24 HRS. tamsulosin (FLOMAX) 0.8 mg zinc gluconate 50 MG tablet Every 24 hours ALLERGIES: Allergies Allergen Reactions Amoxicillin Other Pt gets sores in mouth REVIEW OF SYMPTOMS: Review of Systems OBJECTIVE: Visit Vitals Ht 5' 10 Wt 177 lb BMI 25.40 kg/m Smoking Status Never BSA 1.99 m Physical Exam General General Appearance: appears stated age and healthy Orientation: alert and oriented to person, place, and time Right Foot/Ankle Inspection and Palpation Ecchymosis: none Tenderness: none Swelling: none Arch: normal Hammertoes: second toe, third toe, fourth toe and fifth toe Hallux valgus: distal with elevatus Hallux limitus: no Skin Exam: skin intact; gr toe 50% thick,yellow,crumbling Atrophic skin and neg digital hair Neurovascular Dorsalis pedis: 3+ Posterior tibial: 3+ absent sharp sensation 1,2 toes and 1 area 5.07 monofilament Achilles reflex: 2+ Babinski reflex: 2+ Muscle Strength Ankle dorsiflexion: 5 Ankle plantar flexion: 5 Ankle inversion: 5 Ankle eversion: 5 Great toe extension: 5 Great toe flexion: 5 Range of Motion Normal right ankle ROM Left Foot/Ankle Inspection and Palpation Ecchymosis: none Tenderness: none Swelling: none Arch: normal Hammertoes: second toe, third toe, fourth toe and fifth toe Claw toes: absent Hallux valgus: no Hallux limitus: no Skin Exam: skin intact; thick, yellow, crumbling gr toe 30% Atrophic skin and neg digital hair Neurovascular Dorsalis pedis: 3+ Posterior tibial: 3+ absent sharp sensation 1,2 toes and 1 area 5.07 monofilament Achilles reflex: 2+ Babinski reflex: 2+ Muscle Strength Ankle dorsiflexion: 5 Ankle plantar flexion: 5 Ankle inversion: 5 Ankle eversion: 5 Great toe extension: 5 Great toe flexion: 5 Range of Motion Normal left ankle ROM No POP. Good ROM ASSESSMENT AND PLAN: Assessment/Plan Diagnoses and all orders for this visit: Valgus deformity of both great toes Acquired deformity of left toe - XR foot 1 or 2 views left Acquired deformity of right toe - XR foot 1 or 2 views right Onychomycosis Idiopathic progressive polyneuropathy Stretching: calf , hamstring and arch stretching and home rehab program reviewed in detail with pt demonstrating good understanding and ability to perform exercises. written and oral instructions given Bunion/Bunionette: Deformity addressed for potential causes including hereditary and trauma and poor shoe choices. ice, poadding and better shoe fit discussed for conservative management. Surgery may be needed for correction to avaoid activity changes and prevent wounds Spacer pad rt planned Mycotic nail-topical care: shoe hygiene and nail care reviewed with cause of dermatophytosis. meds reviewed nd demonstrated. risk of oral agents requiring labs discussed. pt prefers topcial care powerstep OTC orthotic recommended Surgery for gr toe correction reviewed documented in this encounterRipley County Memorial HospitalEfemjwpxqc03-77-1767 NoteHNO ID: [id number] Author: Suzanne GRAJEDA MD Service: ? Author [...] dose.No IV access, inser (more content not included)...[facility]07-30-2025 History of Present illness Narrative* Suzanne Grajeda MD - 05/19/2025 9:25 AM EDT Radiation Oncology - Follow Up [...] as designated per enteric contrast guidelines Catheter ([facility] EXTERNAL CATH) misc 1 Device once [...] by: Suzanne Grajeda MD cc: Lesa Estrella ([facility]) [address] [place] [address] No referring provider defined for this encounter. documented in this encounterCherrington Hospital07-30-2025 Instructions* Patient Instructions* Eugene Chaparro MD - 05/19/2025 9:17 AM [...] detected in the abdomen. documented in this encounterCherrington Hospital07-30-2025 History of Present illness Narrative* Eugene Chaparro MD - 05/19/2025 9:00 AM EDT Images from the original note were not included. NAME: Kennedy Kong [facility] NO.: [id number] DATE OF SERVICE: May 19, 2025 (Deann) [...] December 05, 2023, was identified as having qqvq-jidxh-dvyqeh invasive papillary bladder cancer and has been [...] of asbestos exposure during his work at [employer]. Updated Visit, July 01, 2024: Kennedy returns [...] better after taking Macrobid for UTI. His pedwgyr-jl-bmw is a patient of [email or web address] [facility]. Updated Visit, February [...] day. His about 3.5 years ago from [employer]. Updated Visit, February 05, 2024: Kennedy Kong [...] the CT contrast administration guidelines link. Catheter ([facility] EXTERNAL CATH) misc 1 Device once [...] which included preparing to see the patient, wnjb-cv-tkfm patient care, completing clinical documentation, performing a medically appropriate examination, counseling and educating the patient/family/caregiver, ordering medications, tests, or procedures, independently interpreting results (not separately reported), communicating results to the patient/family/caregiver, and care coordination (not separately reported). Eugene Chaparro MD, CPE Hematology and Oncology Services Provided at: [place], [place] CC: Suzanne Estrella documented in this encounterCherrington Hospital07-30-2025 NoteHNO ID: [id number] Author: EUGENE CHAPARRO MD Service: ? Author Type: Physician Type: Progress Notes Filed: 05/22/2025 10:08 Note Text: NAME: Kennedy Kong [facility] NO.: [id number] DATE OF SERVICE: May 19, 2025 (Deann) Some elements in this clinic note that are critical to medical decision making have been carefully reviewed and included from a prior clinic note dated: January 29, 2025 (Deann) Referring Provider: Dr. Leigh Grajeda Additional Clinicians involved in Kennedy Kong's care: Avel Crooks Trunzo, Kylie Dietrcih CC: Follow up for treatment. DIAGNOSIS: High [...] December 05, 2023, was identified as having csoh-utxwe-uiesko invasive papillary bladder cancer and has been [...] be on the b (more content not included)...[facility]07-25-2025 History of Present illness Narrative* Ewa Trotter RN - 05/14/2025 7:15 AM EDT Radiology Service Progress Note DATE OF SERVICE: [...] Cane, Wheelchair, Crutches, etc.)? Yes, Patient High Riskfor Falls What interventions were put in place [...] DATE: May 14, 2025 TIME: 8:13 AM * Sherorn Rasmussen RT(R) - 05/14/2025 7:15 AM EDT Radiology Service Progress Note PATIENT [...] PATIENT PRESENTS WITH AN IMPLANTABLE OR ATTACHED OLD COIN DEALER: No RADIOLOGY DEPARTMENT: CT; Exam(s) Completed: Chest Abdomen Pelvis PERIPHERAL IV DATA: Site assessment: Clean,Dry and Intact, Site disposition Discontinued SIGNED BY: RT Myron(R) May 14, 2025 8:38 AM documented in this encounterCher[facility]07-25-2025 NoteHNO ID: [id number] Author: EWA TROTTER RN Service: ? Author [...] Kong DATE: May 14, 2025 TIME: 8:13 [facility]07-25-2025 NoteHNO ID: [id number] Author: SHERRON RASMUSSEN RT(R) Service: ? Author [...] PATIENT PRESENTS WITH AN IMPLANTABLE OR ATTACHED OLD COIN DEALER: No RADIOLOGY DEPARTMENT: CT; Exam(s) Completed: Chest Abdomen Pelvis PERIPHERAL IV DATA: Site assessment: Clean,Dry and Intact, Site disposition Discontinued SIGNED BY: RT Myron(R) May 14, 2025 8:38 [facility]06-13-2025 Hospital Discharge instructions Patient Education 04/02/2025 10:11:24 Erectile Dysfunction Erectile Dysfunction Erectile dysfunction (ED) is the inability to get or keep an erection in order to have sexual intercourse. ED is considered a symptom of an underlying disorder and is not considered a disease. ED mayinclude: Inability to get an erection. Lack of [...] back or pelvic injuries, multiple sclerosis, Parkinson's disease,spinal cord injury, and stroke. Certain medicines, such [...] or the penis may be too curved toallow for intercourse. Never having nighttime or morning [...] penis. During this procedure, a blood vessel froma different part of the body is placed into the penis to allow blood to flow around (bypass) damaged or blocked blood vessels. Lifestyle changes, such as exercising more, losing weight, and quitting smoking. Follow these instructions at home: Medicines Take egnm-sxf-gprrjpp and prescription medicines only as told by your health care provider. Do not increase the dosage without first discussing it with your health care provider. If you are using self-injections, do injections as directed by your health care provider. Make sureyou avoid any veins that are on the surface of the penis. After giving an injection, apply pressureto the injection site for 5 minutes. Talk [...] you need help quitting, ask your health careprovider. Before using a vacuum pump, read the instructions that come with the pump and discuss any questionswith your health care provider. Keep all follow-up [...] provider. Document Revised: 01/03/2022 Document Reviewed: 01/03/2022 [employer] Patient Education 2023 [employer] Follow Up Care 04/01/2025 09:18:46 With:[facility] Address: When: Unknown Comments:For procedure as scheduled. [facility] 06-13-2025 NotePatient Education Urology Erectile Dysfunction Erectile dysfunction (ED) is the inability to get or keep an erection in order to have sexual intercourse. ED is considered a symptom of an underlying disorder and is not considered a disease. ED mayinclude: ??? Inability to get an erection. ??? [...] The tube is inserted into the opening atthe tip of the penis, which is the [...] these instructions at home: Medicines ??? Take hacf-ndg-geoxehm and prescription medicines only as told by [...] ??? Do not u (more content not included)...[facility]06-11-2025 History of Present illness Narrative* Theodora Dana Love, FINISHER POLISHER-STITCHER SPECIAL MACHINE - 03/31/2025 8:30 AM EDT Chief Complaint Seem to be doing better [...] could do stress testing but he politely declinesbut will keep an eye on things . [...] Lasix. April 2023 NSTEMI with ostial/proximal OM PCI/[place] stenting. No residual disease. Mild ischemic cardiomyopathy LVEF 45% at time of April 2023 NSTEMI -with normalization of LVEF June 2023 TTE LVEF 60 to 65%. No significant structural heart disease. He has no history of dysrhythmias. Regular rate and rhythm in the office today. Unilateral lower extremity edema resolved Plan: Through informed decision making process incorporating patients unique circumstances, the followingtreatment plan will be initiated: 1. Prescription drug management of cardiovascular medication for efficacy, adherence to treatment, side effect assessment and polypharmacy. Current treatment clinically warranted and to continue without modifications. 2. Return for follow-up; in the interim, contact the office if new symptoms arise. Dr. Morgan 6 months Theodora Love MSN, FINISHER POLISHER-STITCHER SPECIAL MACHINE, PMHNP-[facility] [place], [place] Please excuse any errors in grammar or translation related to this dictation. Voice recognition software was utilized to prepare this document. documented in this encounterTuscarawas Hospital Work Phone: 1(270) 665-580706-11-2025 Instructions* Patient Instructions* SAVANNA Coleman - 03/31/2025 8:30 AM EDT [...] making process incorporating patients unique circumstances, the followingtreatment plan will be initiated: 1. Prescription drug management of cardiovascular medication for efficacy, adherence to treatment, side effect assessment and polypharmacy. Current treatment clinically warranted and to continue without modifications. 2. Return for follow-up; in the interim, contact the office if new symptoms arise. Dr. Morgan 6 months documented in this encounterTuscarawas Hospital Work Phone: 1(235) 458-953205-30-2025 Hospital Discharge instructions Patient Education 03/19/2025 13:55:38 [...] cells. Follow these instructions at home: Take fgtv-mgl-vdwqlki and prescription medicines only as told by your health care provider. If you were prescribed an antibiotic medicine, take it as told by your health care provider. Do notstop using the antibiotic even if you start to feel better. Eat a healthy diet. Some treatments might affect your appetite. Do not use any products that contain nicotine or tobacco. These products include cigarettes, chewing tobacco, and vaping devices, such as e-cigarettes. If you need help quitting, ask your health careprovider. Consider joining a support group. This may help you learn to deal with the stress of having bladdercancer. Tell your cancer care team if you develop side effects. Your team may be able to recommend ways to get relief. Keep all follow-up visits. This is important. Where to find more information [place] [employer] (ACS): cancer.org National Cancer [place] (NCI): cancer.gov Contact a health care provider [...] to deal with the stress of having bladdercancer. This information is not intended to replace advice given to you by your health care provider. Make sure you discuss any questions you have with your health care provider. Document Revised: 09/17/2022 Document Reviewed: 09/17/2022 [employer] Patient Education 2023 [employer]. Follow Up Care 03/09/2025 15:01:58 With:[facility] Address: When: Unknown Comments:For procedure as scheduled. [facility] 05-30-2025 NotePatient Education Oncology Bladder Cancer Bladder cancer is [...] Follow these instructions at home: ??? Take cgfd-mbu-hjtipso and prescription medicines only as told by your health care provider. ??? If you were prescribed an antibiotic medicine, take it as told by your health care provider. Donot stop using the antibiotic even if you [...] Your team may be able to recommend waysto get relief. ??? Keep all follow-up visits. This is important. Where to find more information ??? [place] [employer] Society (ACS): cancer.org ??? National Cancer [place] (NCI): cancer.gov Contact a health care provider [...] physical exam, lab tests, imaging tests, and yoursymptoms. ??? Your health care provider may recommend one or more types of treatment based on the stage of your cancer. ??? Consider joining a support group. This may help you learn to deal with the stress of having bladder cancer. This information is n (more content not included)...[facility] 03-17-2025 Radiology Diagnostic study [facility] [place] [facility] [place] [address] [place] [address] Ultrasound Report Signed Patient: Kennedy Kong MR#: [id number] : 1935 Acct:[id number] Age/Sex: 89 / M ADM Date: 5 Loc: Room: Type: [facility] Attending Dr: Theodora Love APRN Ordering Provider: [...] and peroneal veins were compressible, as well asproximal greater saphenous vein. The contralateral right common femoral vein was compressible with color-flow andaugmentation. US/US venous duplex LE LT IMPRESSION: NO EVIDENCE OF DEEP VENOUS THROMBOSIS IN THE LEFT LOWER EXTREMITY. NO SUPERFICIAL THROMBOPHLEBITIS WAS NOTED. Impression dictated by: Randal Smith M.D. 03/17/2025 10:29 AM Dictation Location: [place] [address] Tech: Sandee Womack Transcribed By: LIZ 03/17/25 1029 Dictated By: Randal Smith MD 03/17/25 1028 Signed By: 03/17/25 1029 [facility] Work Phone: 1(779) 366-762405-27-2025 History of Present illness Narrative* Theodora Love, MIGUEL-STITCHER SPECIAL MACHINE - 03/16/2025 1:30 PM EDT Chief Complaint Reason for Visit Patient presents [...] mg, Daily Assessment: Plan: Theodora Love MSN, FINISHER POLISHER-STITCHER SPECIAL MACHINE, PMHNP-[facility] [place], [place] Please excuse any errors in grammar or translation related to this dictation. Voice recognition software was utilized to prepare this document. documented in this encounterTuscarawas Hospital Work Phone: 1(854) 380-279405-27-2025 Instructions* Patient Instructions* SAVANNA Coleman - 03/16/2025 1:30 PM EDT [...] making process incorporating patients unique circumstances, the followingtreatment plan will be initiated: 1. Prescription drug management of cardiovascular medication for efficacy, adherence to treatment, side effect assessment and polypharmacy. Current treatment clinically warranted and to continue withfollowing modifications: - Lasix 20mg daily for next 3 days and see if helps with edema - Stop coreg 2. LLE USN r/o DVT 3. Return for follow-up; in the interim, contact the office if new symptoms arise. LENS COATER 2 weeks documented in this encounterTuscarawas Hospital Work Phone: 1(241) 947-824704-11-2025 Telephone encounter Note* Telephone Encounter - Joanie Caraballo RN - 01/29/2025 12:53 PM EDT Images from the original note were not included. Eugene Chaparro MD P [facility] Triage Pool Miroslava - scans were clear! [...] call with any questions/concerns. Joanie Caraballo RN [facility]04-11-2025 Miscellaneous Notes* Telephone Encounter - Joanie Caraballo RN - 01/29/2025 12:53 PM EDT Images from the original note were not included. Eugene Chaparro MD P [facility] Triage Pool Miroslava - scans were clear! [...] call with any questions/concerns. Joanie Caraballo RN * Telephone Encounter - Onofre Raphael Lali Dinora - 01/29/2025 9:21 AM EDT Please call patient with today's ct scans. Thank you documented in this encounterCherrington Hospital04-11-2025 Telephone encounter Note * Telephone Encounter - OnofreLali Aguillon - 01/29/2025 9:21 AM EDT Please call patient with today's ct scans. Thank you [facility]04-11-2025 Instructions* Patient Instructions* Bianca Odonnell - 01/29/2025 9:10 AM EDT Triage to call with results of today's CT Follow up with Dr. Dietrich as scheduled CT CAP with labs in 3 months RTC 1 week after documented in this encounterCherrington Hospital04-11-2025 History of Present illness Narrative* Eugene Chaparro MD - 01/29/2025 9:00 AM EDT Images from the original note were not included. NAME: Kennedy Kong [facility] NO.: [id number] DATE OF SERVICE: January 29, 2025 (Deann) [...] December 05, 2023, was identified as having vdsa-micrd-valtrj invasive papillary bladder cancer and has been [...] of asbestos exposure during his work at [employer]. Updated Visit, July 01, 2024: Kennedy returns [...] better after taking Macrobid for UTI. His ciscqrj-fs-sii is a patient of [facility]. Updated Visit, February 12, [...] day. His about 3.5 years ago from [employer]. Updated Visit, February 05, 2024: Kennedy Kong [...] Pt gets sores in mouth MEDICATIONS: Catheter ([facility] MALE EXTERNAL CATH) misc 1 Device once [...] which included preparing to see the patient, mpws-on-gezn patient care, completing clinical documentation, performing a medically appropriate examination, counseling and educating the patient/family/caregiver, ordering medications, tests, or procedures, independently interpreting results (not separately reported), communicating results to the patient/family/caregiver, and care coordination (not separately reported). Eugene Chaparro MD, CPE Hematology and Oncology Services Provided at: [facility], [place], [place] Scribe Attestation: This note was scribed by Bianca Odonnell on January 29, 2025 under the direction and supervision ofDr. Eugene Chaparro. I attest that all of the information documented is correct to the best of my knowledge. Provider Attestation: I, Eugene Chaparro MD, attest that all information documented by the above scribe is correct, and was supervised by me and under my direction. CC: Suzanne Estrella documented in this encounterCherrington Hospital04-11-2025 NoteHNO ID: [id number] Author: EUGENE CHAPARRO MD Service: ? Author Type: Physician Type: Progress Notes Filed: 01/29/2025 12:52 Note Text: NAME: Kennedy Kong [facility] NO.: [id number] DATE OF SERVICE: January 29, 2025 (Deann) [...] December 05, 2023, was identified as having ucqd-tycpa-lebrrr invasive papillary bladder cancer and has been [...] throughout the colon. This (more content not included)...[facility]04-11-2025 History of Present illness Narrative* Sherron Rasmussen RT(R) - 01/29/2025 7:15 AM EDT Radiology Service Progress Note PATIENT [...] PATIENT PRESENTS WITH AN IMPLANTABLE OR ATTACHED OLD COIN DEALER: No RADIOLOGY DEPARTMENT: CT; Exam(s) Completed: Chest Abdomen Pelvis PERIPHERAL IV DATA: Site assessment: Clean,Dry and Intact, Site disposition Discontinued SIGNED BY: RT Myron(R) January 29, 2025 7:56 AM * Marti Dodson RN - 01/29/2025 7:15 AM EDT Radiology Service Progress Note DATE OF SERVICE: [...] 2025 TIME: 8:02 AM documented in this encounterCherrington Hospital04-11-2025 NoteHNO ID: [id number] Author: SHERRON RASMUSSEN RT(R) Service: ? Author [...] PATIENT PRESENTS WITH AN IMPLANTABLE OR ATTACHED OLD COIN DEALER: No RADIOLOGY DEPARTMENT: CT; Exam(s) Completed: Chest Abdomen Pelvis PERIPHERAL IV DATA: Site assessment: Clean,Dry and Intact, Site disposition Discontinued SIGNED BY: RT Myron(R) January 29, 2025 7:56 [facility]04-11-2025 NoteHNO ID: [id number] Author: MARTI DODSON RN Service: ? Author [...] Kong DATE: January 29, 2025 TIME: 8:02 [facility]03-21-2025 Evaluation note* Diagnosis Onset Date Resolution Status Admit Date Allergic contact dermatitis noneactiveMarch 2024 8:48amAcute bronchitis due to Mycoplasma pneumoniae noneactiveMarch 2024 8:48am [facility] Work Phone: 1(753) 497-181103-21-2025 Evaluation note* Diagnosis Onset Date Resolution Status Admit Date Allergic contact dermatitis noneactiveMarch 2024 8:48amAcute bronchitis due to Mycoplasma pneumoniae noneactiveMarch 2024 8:48amBenign prostatic hyperplasia with lower urinary tract symptomsacuteJune 2024 9:59amChronic HFrEF (heart failure with reduced ejection fraction)acuteJune 2024 9:59amChronic venous insufficiency acuteJune 2024 9:59amConstipation, chronicacuteJune 2024 9:59am Ischemic cardiomyopathyacuteJune 2024 9:59amPapillary adenocarcinoma of bladderacuteJune 2024 9:59am [facility] Work Phone: 1([phone]) [phone] Evaluation note* Diagnosis Onset Date Resolution Status Admit Date Ischemic cardiomyopathy acuteFebruary 2024 1:30pmAllergic rhinitisnoneactiveFebruary 2024 1:30pmAllergic contact dermatitisnoneactiveMarch 2024 8:48amAcute bronchitis due to Mycoplasma pneumoniaenoneactiveMarch 2024 8:48am [facility] Work Phone: 1(254) 533-314801-10-2025 Telephone encounter Note* Telephone Encounter - Sherron [...] discuss further w/ pt. Sherron Singh RN [facility] Work Phone: [phone]) 372-541901-10-2025 Miscellaneous Notes* Telephone Encounter - Sherron Singh [...] pt. Sherron Singh RN documented in this encounterCherrington Hospital01-08-2025 History of Present illness Narrative* Eugene Chaparro MD - 10/28/2024 11:20 AM EST Images from the original note were not included. NAME: Kennedy Kong [facility] NO.: [id number] DATE OF SERVICE: October 28, 2024 (Deann) [...] December 05, 2023, was identified as having aeub-jldjc-xqxfxe invasive papillary bladder cancer and has been [...] of asbestos exposure during his work at [employer]. Updated Visit, July 01, 2024: Kennedy returns [...] better after taking Macrobid for UTI. His ambsddy-pq-xsb is a patient of [email or web address] [facility]. Updated Visit, February [...] day. His about 3.5 years ago from [employer]. Updated Visit, February 05, 2024: Kennedy Kong [...] as designated per enteric contrast guidelines Catheter ([facility] MALE EXTERNAL CATH) misc 1 Device once [...] which included preparing to see the patient, kduz-su-hhap patient care, completing clinical documentation, performing a medically appropriate examination, counseling and educating the patient/family/caregiver, ordering medications, tests, or procedures, independently interpreting results (not separately reported), communicating results to the patient/family/caregiver, and care coordination (not separately reported). Eugene Chaparro MD, CPE Hematology and Oncology Services Provided at: [place], [place] Scribe Attestation: This note was scribed [...] direction. CC: Suzanne Estrella documented in this encounterCherrington Hospital01-08-2025 NoteHNO ID: [id number] Author: EUGENE CHAPARRO MD Service: ? Author Type: Physician Type: Progress Notes Filed: 10/29/2024 12:46 Note Text: NAME: Kennedy Kong [facility] NO.: [id number] DATE OF SERVICE: October 28, 2024 ([facility]) Some elements in this clinic note that [...] December 05, 2023, was identified as having pglx-fzlpb-wzvvka invasive papillary bladder cancer and has been [...] with minor component of (more content not included)...[facility]01-08-2025 Instructions * Patient Instructions* Bianca Odonnell - 10/28/2024 10:44 AM EST Follow up with Dr. Dietrich as scheduled in 11/2024 CT CAP with labs in 3 months RTC 1 week after documented in this encounterCherrington Hospital01-08-2025 NoteHNO ID: [id number] Author: Suzanne GRAJEDA MD Service: ? Author [...] as designated per enteric contrast guidelines Catheter ([facility] MALE EXTERNAL CATH) [facility] 1 Device once daily. clopidogrel (PLAVIX) 75 [...] by: Suzanne Grajeda MD cc: Lesa Estrella ([facility]) [address] [place] [address] No referring provider defined for this encounter.[facility] 10-28-2024 History of Present illness Narrative* Suzanne [...] as designated per enteric contrast guidelines Catheter ([facility] MALE EXTERNAL CATH) misc 1 Device once [...] Suzanne Grajeda MD cc: Lesa Estrella ([facility]) [address] [place], [place] [id number] No referring provider defined for this encounter. documented in this encounterCherrington Hospital12-31-2024 History of Present illness Narrative* Marti Dodson [...] 1212 PATIENT DISCHARGED TO: Ambulatory patient, left [place] department area. Is this a therapy: No A Diagnostic radioactive procedure has taken place, with no further precautions necessary other than routine body substance precautions. More information regarding radiation safety can be found using[employer] link: [email or web address]%20Protection%20-% 20Diagnostic%20Nuclear%20Medicine%20Procedures.pdf SIGNATURE: RT Myron(R) PATIENT NAME: Kennedy Kong DATE: October 20, 2024 TIME: 1:16 PM PAGER/CONTACT #: documented in this encounterCherrington Hospital12-31-2024 NoteHNO ID: [id number] Author: MARTI DODSON RN Service: ? Author [...] Kong DATE: October 20, 2024 TIME: 12:21 [facility]12-31-2024 NoteHNO ID: [id number] Author: SHERRON RASMUSSEN RT(R) Service: ? Author [...] 1212 PATIENT DISCHARGED TO: Ambulatory patient, left [place] department area. Is this a therapy: No A Diagnostic radioactive procedure has taken place, with no further precautions necessary other than routine body substance precautions. More information regarding radiation safety can be found using this link: [email or web address] 20Diagnostic%20Nuclear%20Medicine%20Procedures.pdf SIGNATURE: RT Myron(R) PATIENT NAME: Kennedy Kong DATE: October 20, 2024 TIME: 1:16 PM PAGER/CONTACT #:[facility]12-16-2024 Telephone encounter Note* Telephone Encounter - Lincoln Alcazar - 10/05/2024 10:58 AM EST Patient scheduled for PET 10/20 with an arrival time of 1245 and a scan time of 200. Follow up moved to 10/28/24 at 10:[address] Grajeda and 11:[address] Bravo. Patient notified and confirmed. [facility]12-16-2024 Miscellaneous Notes* Telephone Encounter - Lincoln Alcazar [...] I see you next. documented in this encounterCherrington Hospital12-16-2024 Telephone encounter Note * Telephone Encounter - Sherron Singh RN - 10/05/2024 9:33 AM EST Pt notified and agrees to PET. Clerical: Please call before scheduling. Thanks! Sherron Singh RN [facility] Work Phone: [phone]) [phone] Telephone encounter Note* Telephone Encounter - Sherron Singh RN - 10/05/2024 9:33 AM EST ----- Message from Eugene Chaparro MD sent at 10/02/2024 5:53 PM EST ----- Angeline Benavides - the CT shows a spot that we should look into more if you are ok with that - I wouldlike to get a PET/CT before I see you next. [facility]12-11-2024 NoteHNO ID: [id number] Author: SHERRON RASMUSSEN RT(R) Service: ? Author [...] PATIENT PRESENTS WITH AN IMPLANTABLE OR ATTACHED OLD COIN DEALER: No CREATININE: Creatinine Date Value Ref Range [...] contrast PATIENT DISCHARGED TO: Ambulatory patient, left [place] department area. Is this a therapy: No A Diagnostic radioactive procedure has taken place, with no further precautions necessary other than routine body substance precautions. More information regarding radiation safety can be found using this link: [email or web address]-% 20Diagnostic%20Nuclear%20Medicine%20Procedures.pdf SIGNATURE: RT Myron(R) PATIENT NAME: Kennedy Kong DATE: September 30, 2024 TIME: 10:07 AM PAGER/CONTACT #:[facility]12-02-2024 Evaluation note* Diagnosis Onset Date Resolution Status Admit Date Benign prostatic hyperplasia with lower urinary tract symptoms acuteDecember 2023 9:48amChronic HFrEF (heart failure with reduced ejection fraction)acuteDeceer 2023 9:48amChronic venous insufficiencyacute September 21, 2024 9:48amConstipation, chronicacuteDecember 2023 9:48am Ischemic cardiomyopathyacuteDecemb2023 9:48amMedicare annual wellness visit, subsequentacuteDecemb2023 9:48amPapillary adenocarcinoma of bladderacuteSeptember 21, 2024 9:48am [facility] Work Phone: 1(469) 501-582109-26-2024 Hospital Discharge instructions Patient Education 07/16/2024 09:03:29 [...] urethra. Follow these instructions at home: Take jxlv-tms-xysqipn and prescription medicines only as told by [...] provider. Document Revised: 04/25/2022 Document Reviewed: 04/25/2022 IntY Patient Education 2023 [employer]. Follow Up Care 07/14/2024 10:32:11 With:KARLO CHOI, Klyie Restrepo, URL Address: [address] [place] [address]- When:3 months Comments:Due for cysto in Oct 2024 [facility] 09-26-2024 NotePatient Education Urology Benign Prostatic Hyperplasia [...] Follow these instructions at home: ? Take esga-cxv-svuahym and prescription medicines only as told by [...] You develop side effec (more content not included)...[facility]09-16-2024 Telephone encounter Note* Telephone Encounter - Lali Byrd - 07/06/2024 10:[address] Eugene Chaparro is referring Vincent back to Dr Heath for possible bowel strictures. Same dx asbefore. Thank you for scheduling this appointment. [facility]09-16-2024 Miscellaneous Notes* Telephone Encounter - Lali Byrd - 07/06/2024 10:[address] Eugene Chaparro is referring Kennedy back to Dr Heath for possible bowel strictures. Same dx asbefore. Thank you for scheduling this appointment. documented in this encounterCherrington Hospital09-11-2024 History of Present illness Narrative* Suzanne Grajeda [...] Pt gets sores in mouth MEDICATIONS: Catheter ([facility] CATH) misc 1 Device once [...] by: Suzanne Grajeda MD cc: Lesa Estrella ([facility]) [address] [place], [place] [id number] No referring provider defined for this encounter. documented in this encounterCherrington Hospital09-11-2024 NoteHNO ID: [id number] Author: Suzanne GRAJEDA MD Service: ? Author [...] Pt gets sores in mouth MEDICATIONS: Catheter ([facility]TER[facility] CATH) misc 1 Device once [...] Suzanne Grajeda MD cc: Lesa Estrella (Stevie) [address] [place] [id number] No referring provider defined for this encounter.[facility] 07-01-2024 Instructions* Patient Instructions* Bianca Odonnell - 07/01/2024 10:32 AM EDT Obtain cystoscopy records from [facility] CT CAP with labs in 3 months RTC 1 week after documented in this encounterCherrington Hospital09-11-2024 History of Present illness Narrative* Eugene Chaparro MD - 07/01/2024 10:30 AM EDT Images from the original note were not included. NAME: Kennedy Kong [facility] NO.: [id number] DATE OF SERVICE: July 01, 2024 (Deann) [...] December 05, 2023, was identified as having ksrc-ogdgr-ouzpqw invasive papillary bladder cancer and has been referred to Radiation oncology and subsequently to me for an opinion regarding chemotherapy. 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 He would likely tolerate low dose weekly cisplatin for radiosensitizing given appropriate supportive therapy. Will Coordinate with Dr. Grajeda. PLAN: Obtain cystoscopy records from [facility] CT CAP with labs in 3 months [...] better after taking Macrobid for UTI. His tcvcebl-ex-xqe is a patient of geni Jennings. Updated [...] day. His about 3.5 years ago from [facility]. Updated Visit, February 05, 2024: Kennedy Kong [...] as designated per enteric contrast guidelines Catheter ([facility] CATH) misc 1 Device once [...] which included preparing to see the patient, etnz-db-limy patient care, completing clinical documentation, performing a medically appropriate examination, counseling and educating the patient/family/caregiver, ordering medications, tests, or procedures, independently interpreting results (not separately reported), communicating results to the patient/family/caregiver, and care coordination (not separately reported). Eugene Chaparro MD, CPE Hematology and Oncology Services Provided at: [place], [place] Scribe Attestation: This note was scribed [...] direction. CC: Suzanne Estrella documented in this encounterCherrington Hospital09-11-2024 NoteHNO ID: [id number] Author: EUGENE CHAPARRO MD Service: ? Author Type: Physician Type: Progress Notes Filed: 07/01/2024 20:24 Note Text: NAME: Kennedy Kong CLINIC NO.: [id number] DATE OF SERVICE: July 01, 2024 (Deann) [...] December 05, 2023, was identified as having wotd-tlzqe-vucanp invasive papillary bladder cancer and has been referred to Radiation oncology and subsequently to me for an opinion regarding chemotherapy. 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 He would likely tolerate low dose weekly cisplatin for radiosensitizing given appropriate supportive therapy. Will Coordinate with Dr. Grajeda. PLAN: Obtain cystoscopy records from [facility] CT CAP with labs in 3 months [...] he is now imp (more content not included)...[facility]09-11-2024 Nurse Note* Orly Garcia MA - 07/01/2024 [...] a prostate issue happening. Orly Garcia MA [facility]09-11-2024 Nurse Note* Orly Garcia MA - [...] happening. Orly Garcia MA documented in this encounterCherrington Hospital09-03-2024 Evaluation + Plan note Diagnostic Tests Pending * [facility] Fish [facility] Urine Cyto ([facility]) 06/23/24 [facility] 07-01-2024 Hospital Discharge instructions Patient Education 04/20/2024 [...] including vitamins, herbs, eye drops, creams, and ziil-peo-mlxzysu medicines. Any problems you or family members [...] provider tells you to take them. Taking zogr-djr-qhszjuj medicines, vitamins, herbs, and supplements. Tests You [...] Follow these instructions at home: Medicines Take dvsx-vyn-okxaozk and prescription medicines only as told by [...] provider. Document Revised: 06/20/2022 Document Reviewed: 05/19/2021 IntY Patient Education 2022 [employer]. Follow Up Care 02/20/2024 10:40:56 With:KARLO CHOI, Kylie Restrepo, URL Address: [facility] [address] [place] [id number] When: Unknown Comments:cysto due in June [facility] 07-01-2024 NoteUrology Office/Clinic Note Chief Complaint f/u after [facility] Referral HPI Staff Here for f/u after radiation at [facility]. Last seen in office 12/16/23. Dx: recurrent bladder papillary carcinoma, BPH with obstruction/LUTS, hydrocele. *Tamsulosin 0.4mg qd Repeat TURBT 12/05/23. CT AP 12/17/23 - neg for mets. Completed 5 weekly doses of Cisplatin with radiation 01/20/24 - 02/26/24. Radiation completed 01/20/24 - 03/02/24. Last saw Dr. Chaparro 03/25/24, plan was RTC in coordination with Dr. Engeler with labs and scans to follow. (States [...] invasion identified. No definitive lymphovascular invasion noted. [facility] ER visit 12/14/23 due to gross [...] Tamsulosin 0.4mg qd. [2] 4. Hydrocele (N43.3: Onward (more content not included)...[facility]Result Comment: Electronically Signed By: [...] including vitamins, herbs, eye drops, creams, and xsqo-pzw-tnxhapr medicines. ? Any problems you or family [...] tells you to take them. ? Taking leys-taq-dpjsggt medicines, vitamins, herbs, and supplements. Tests You [...] these instructions at home: Medicines ? Take muxs-vrj-ldxapnl and prescription medicines only as told by [...] your health care provider, (more content not included)...[facility]06-05-2024 History of Present illness Narrative* Suzanne [...] cap Take by mouth once daily. Catheter ([facility]) misc 1 Device once [...] Suzanne Grajeda MD cc: Lesa Estrella ([place]) [address] [place] [phone] No referring provider defined for this encounter. documented in this encounterCherrington Hospital06-05-2024 Instructions* Patient Instructions* Bianca Hardwick - 03/25/2024 1:37 PM EDT RTC in coordination with Dr. Grajeda Labs same day - CBC, CMP Next set of scans per Dr. Grajeda documented in this encounterCherrington Hospital06-05-2024 Nurse Note* Orly Mistry MA - 03/25/2024 1:18 PM EDT Patient would like to know if his tumor is shrinking, growing or what may be going on, he said people are asking him and he is not sure himself. Orly Garcia MA [facility]06-05-2024 Nurse Note* Orly Garcia MA - 03/25/2024 1:18 PM EDT Patient would like to know if his tumor is shrinking, growing or what may be going on, he said people are asking him and he is not sure himself. Orly Garcia MA documented in this encounterCherrington Hospital06-05-2024 History of Present illness Narrative* Eugene Chaparro MD - 03/25/2024 1:15 PM EDT Images from the original note were not included. NAME: Kennedy Kong [facility] NO.: [id number] DATE OF SERVICE: March 25, 2024 (Deann) [...] December 05, 2023, was identified as having teqv-aormb-hgplav invasive papillary bladder cancer and has been [...] better after taking Macrobid for UTI. His tanxiuw-vf-lcp is a patient of [facility] Miguel Jennings. Updated Visit, February 12, [...] day. His about 3.5 years ago from [facility]. Updated Visit, February 05, 2024: Kennedy Kong [...] cap Take by mouth once daily. Catheter ([facility]) misc 1 Device once [...] which included preparing to see the patient, gunk-aw-wpjj patient care, completing clinical documentation, performing a medically appropriate examination, counseling and educating the patient/family/caregiver, ordering medications, tests, or procedures, independently interpreting results (not separately reported), communicating results to the patient/family/caregiver, and care coordination (not separately reported). Eugene Chaparro MD, CPE Hematology and Oncology Services Provided at: [place], [place] Scribe Attestation: This note was scribed [...] direction. CC: Suzanne Estrella documented in this encounterCherrington Hospital05-30-2024 History of Present illness Narrative* Jana Pierre LSW - 03/19/2024 11:03 AM EDT SOCIAL WORK FOLLOW UP NOTE: [facility] Date of service:03/19/24 TOPICS ADDRESSED: community resources Assigned SW listed in Care Team tab: Yes SW completed and mailed a transportation mileage log to [employer] ([employer] for Cancer [employer]) for the month of February 2024. INES Shaw documented in this encounterCherrington Hospital05-13-2024 History of Present illness Narrative* Suzanne Grajeda [...] him. Suzanne Grajeda MD documented in this encounterCherrington Hospital05-13-2024 History of Present illness Narrative* Suzanne Grajeda MD - 03/02/2024 12:00 AM EDT [facility] Radiation Oncology Department RADIATION ONCOLOGY - COMPLETION [...] cc: Dr. Sameer Chaparro documented in this encounterCherrington Hospital05-08-2024 History of Present illness Narrative* Eugene Chaparro MD - 02/26/2024 10:15 AM EDT Images from the original note were not included. NAME: Kennedy Kong [facility] NO.: [id number] DATE OF SERVICE: February 26, 2024 (Deann) [...] December 05, 2023, was identified as having miks-tjqlt-enkmxb invasive papillary bladder cancer and has been [...] better after taking Macrobid for UTI. His iffaspp-vz-qsb is a patient of [facility] Miguel Jennings. Updated Visit, February 12, [...] day. His about 3.5 years ago from [facility]. Updated Visit, February 05, 2024: Kennedy Kong [...] times a day for 7 days. Catheter ([facility] CATH) misc 1 Device once [...] which included preparing to see the patient, apdm-jb-pjmv patient care, completing clinical documentation, performing a medically appropriate examination, counseling and educating the patient/family/caregiver, ordering medications, tests, or procedures, independently interpreting results (not separately reported), communicating results to the patient/family/caregiver, and care coordination (not separately reported). Eugene Chaparro MD, CPE Hematology and Oncology Services Provided at: [facility], [place], [place] Scribe Attestation: This note was scribed [...] direction. CC: Suzanne Estrella documented in this encounterCherrington Hospital05-08-2024 Instructions* Patient Instructions* Bianca Hardwick - 02/26/2024 10:15 AM EDT Discontinue Cisplatin Finish radiation on 03/02 RTC in coordination with Dr. Grajeda Labs same day - CBC, CMP Next set of scans per Dr. Grajeda documented in this encounterCherrington Hospital05-08-2024 Nurse Note* Orly Mistry MA - 02/26/2024 9:57 AM EDT Patient states that he has constipation, he is taking stool softener. Orly Garcia MA [facility]05-08-2024 Nurse Note* Orly Garcia MA - 02/26/2024 9:57 AM EDT Patient states that he has constipation, he is taking stool softener. Orly Garcia MA documented in this encounterC[facility] Hospital05-06-2024 History of Present illness Narrative* Jana Pierre [...] January 2024. INES Shaw documented in this encounterCherrington Hospital05-06-2024 History of Present illness Narrative* Suzanne Grajeda [...] diarrhea. Suzanne Grajeda MD documented in this encounterCherrington Hospital05-06-2024 Telephone encounter Note * Telephone Encounter - Eemli Genao RN - 02/24/2024 9:31 AM EDT Pt here for XRT and was notified about his change of ATB. Pt verbalized understanding and will stopthe CIpro that was prescribed last week. Emeli Genao RN [facility]05-06-2024 Miscellaneous Notes* Telephone Encounter - Emeli Genao [...] at 02/23/2024 8:39 AM EDT ----- Angeline Mr. Kong - Stop taking Ciprofloxacin please - it is not effective against your urinary infection. - we didn't know this as the urine culture sensitivities didn't come back until now. I have sent another prescription for you called nitrofurantoin. documented in this encounterCherrington Hospital05-06-2024 Telephone encounter Note * Telephone Encounter - Sherron Singh RN - 02/24/2024 8:05 AM EDT Discussed w/ A.JUSTIN Genao, who will inform pt when here for radiation today. Sherron Singh RN [facility] Work Phone: 1(107) 323-684605-06-2024 Telephone encounter Note* Telephone Encounter - Sherron [...] sent another prescription for you called nitrofurantoin. [facility]05-03-2024 Telephone encounter Note* Telephone Encounter - Sherron Singh RN - 02/21/2024 2:06 PM EDT Pt notified of script and verbalizes understanding. Sherron Singh RN [facility] Work Phone: 1(951) 609-118305-03-2024 Miscellaneous Notes* Telephone Encounter - Sherron Singh RN - 02/21/2024 2:06 PM EDT Pt notified of script and verbalizes understanding. Sherron Singh, JUSTIN * Addendum Note - Eugene Chaparro MD [...] He would like any Rx sent to [facility]. We did discuss imodium usage and pushing fluids for hydration. Emeli Genao RN documented in this encounterCherrington Hospital05-03-2024 Note* Addendum Note - Eugene Chaparro MD - 02/21/2024 2:03 PM EDTAddended by: EUGENE CHAPARRO on: 02/21/2024 02:03 PM Modules accepted: Orders [facility]05-03-2024 Telephone encounter Note* Telephone Encounter - Eugene Chaparro MD - 02/21/2024 2:03 PM EDT Rx for cipro sent [facility]05-03-[facility] History of Present illness Narrative* Emeli Genao RN - 02/21/2024 9:39 AM EDT Pt seen at request of radiation therapists due to multiple complaints. See Telephone counter to Dr Chaparro for complete documentation. Emeli Genao, RN documented in this encounterCherrington Hospital05-03-2024 Telephone encounter Note * Telephone Encounter - [...] He would like any Rx sent to [facility]. We did discuss imodium usage and pushing fluids for hydration. Emeli Genao RN [facility]05-01-2024 History of Present illness Narrative* Nandini Angulo [...] concerns. Nandini Angulo RN documented in this encounterCherrington Hospital05-01-2024 Nurse Note* Taina Love MA - 02/19/2024 1:21 PM EDT Back office UA test performed. Results entered in [employer] and doctor notified. Taina Love MA [facility]05-01-2024 Telephone encounter Note* Telephone Encounter - Radha [...] who agrees with plan Radha Torres RN [facility]05-01-2024 Miscellaneous Notes* Telephone Encounter - Radha Torres [...] plan Radha Torres RN documented in this encounterCherrington Hospital04-30-2024 Miscellaneous Notes* Telephone Encounter - Sherron Singh RN - 02/18/2024 2:26 PM EDT Sizing phoned to [facility]. Sherron Singh RN * Telephone Encounter - Sherron Singh RN - 02/18/2024 11:27 AM EDT Pt sized for catheter while here for radiation today. Per JUSTIN Miller, the sizing guide [id number] mm (intermediate). Call placed to [facility]. She was not available at time of call. Message left w/ office staff requesting she call back when convenient. Sherron Singh RN * Telephone Encounter - Sherron Singh RN - 02/18/2024 8:02 AM EDT Voicemail message received from [employer]. Requests that we specify size of pt's texas catheter. Sizing guide printed and given to Atris and Madeleine. They will assist pt when here today for radiation. Sherron Singh RN documented in this encounterCherrington Hospital04-30-2024 Telephone encounter Note * Telephone Encounter - Sherron Singh RN - 02/18/2024 2:26 PM EDT Sizing phoned to [employer]. Sherron Singh RN [facility] Work Phone: [phone]) [phone] Telephone encounter Note* Telephone Encounter - Sherron Singh RN - 02/18/2024 11:27 AM EDT Pt sized for catheter while here for radiation today. Per JUSTIN Miller, the sizing guide [id number] mm (intermediate). Call placed to [facility]. She was not available at time of call. Message left w/ office staff requesting she call back when convenient. Sherron Singh RN [facility]04-30-[facility]24 History of Present illness Narrative* Suzanne Grajeda MD - 02/18/2024 10:04 AM EDT [employer] reviewed. documented in this encounterCherrington Hospital04-30-2024 Telephone encounter Note * Telephone Encounter - Sherron Singh RN - 02/18/2024 8:02 AM EDT [facility]. Requests that we specify size of pt's tex[place] catheter. Sizing guide printed and given to Christina. They will assist pt when here today for radiation. Sherron Singh RN [facility]04-29-2024 Note* Addendum Note - Suzanne Grajeda MD - 02/17/2024 10:29 AM EDTAddended by: Suzanne GRAJEDA on: 02/17/2024 10:29 AM Modules accepted: Orders [facility]04-29-2024 Miscellaneous Notes* Addendum Note - Suzanne Grajeda MD - 02/17/2024 10:29 AM EDTAddended by: Suzanne GRAJEDA on: 02/17/2024 10:29 AM Modules accepted: Orders * Addendum Note - Epi Razo LPN - 02/17/2024 10:15 AM EDTAddended by: EPI RAZO on: 02/17/2024 10:15 AM Modules accepted: Orders documented in this encounterCherrington Hospital04-29-2024 Note* Addendum Note - Epi Razo LPN - 02/17/2024 10:15 AM EDTAddended by: EPI RAZO on: 02/17/2024 10:15 AM Modules accepted: Orders [place] [address]-29-2024 History of Present illness Narrative* Suzanne Grajeda [...] valuation. Suzanne Grajeda MD documented in this encounterCherrington Hospital04-24-2024 Telephone encounter Note * Telephone Encounter - Sherron Singh RN - 02/12/2024 3:17 PM EDT Order faxed to [place] [facility]. Attn: Alanis Arce. [phone]. Sherron Singh RN [facility]04-24-2024 Miscellaneous Notes* Telephone Encounter - Sherron Singh RN - 02/12/2024 3:17 PM EDT Order faxed to [place] [facility]. Attn: Alanis Arce. [phone]. Sherron Singh RN * Telephone Encounter - Sherron Singh RN - 02/12/2024 10:54 AM EDT Images from the original note were not included. Eugene Chaparro MD Sessler, Rebecca, JUSTIN; Epi Razo LPN Anyone know where he could get a texas saldaña or condom catheter? [facility] pharmacy in [place] will dispense urinary supplies through their home health division. Gena: Order pended. Sherron Singh RN documented in this encounterCherrington Hospital04-24-2024 History of Present illness Narrative* Trina Andrade RN - 02/12/2024 11:[address] Chaparro would like magnesium given to pt. No need to draw mag level. Replacing mag d/t cisplatin. Trina Andrade RN documented in this encounterCherrington Hospital04-24-2024 Telephone encounter Note * Telephone Encounter - Sherron Singh RN - 02/12/2024 10:54 AM EDT Images from the original note were not included. Eugene Chaparro MD Sessler, Rebecca, JUSTIN; Epi Razo LPN Anyone know where he could get a texas saldaña or condom catheter? [facility] pharmacy in [place] will dispense urinary supplies through their home health division. Gena: Order pended. Sherron Singh RN [facility]04-24-2024 Instructions* Patient Instructions* Bianca Hardwick - 02/12/2024 10:07 AM EDT Will continue with weekly Cisplatin concurrent with radiation. Anticipate today's dose and next week RTC in 2 weeks to review toxicity Labs same day but do not anticipate additional chemotherapy documented in this encounterCherrington Hospital04-24-2024 Nurse Note* Orly Mistry MA - 02/12/2024 9:56 AM EDT Patient did bring a stool sample in due to bowel movements being black then dark brown. He has not received the results of this. Orly Garcia MA [facility]04-24-2024 Nurse Note* Orly Garcia MA - 02/12/2024 [...] good. Orly Garcia MA documented in this encounterCherrington Hospital04-24-2024 Nurse Note* Orly Mistry MA - 02/12/2024 9:53 AM EDT Patient states he has burning with urination, bowels do not move real good. Orly Garcia MA [facility]04-24-2024 History of Present illness Narrative* Eugene Chaparro MD - 02/12/2024 9:45 AM EDT Images from the original note were not included. NAME: Kennedy Kong CLINIC NO.: [id number] DATE OF SERVICE: February 12, 2024 (Deann) [...] December 05, 2023, was identified as having ymln-ffzjh-iemewg invasive papillary bladder cancer and has been [...] day. His about 3.5 years ago from [facility]. Updated Visit, February 05, 2024: Kennedy Kong [...] cap^Take by mouth once daily.^Disp: ^Rfl: Catheter ([facility]) misc^1 Device once daily.^Disp: [...] which included preparing to see the patient, bedk-pp-wgcw patient care, completing clinical documentation, performing a medically appropriate examination, counseling and educating the patient/family/caregiver, ordering medications, tests, or procedures, independently interpreting results (not separately reported), communicating results to the patient/family/caregiver, and care coordination (not separately reported). Eugene Chaparro MD, CPE Hematology and Oncology Services Provided at: [facility], [place], [place] Scribe Attestation: This note was scribed [...] me and under my direction. CC: Suzanne Henaozak [place] Sameer documented in this encounterCherrington Hospital04-22-2024 History of Present illness Narrative* Suzanne Grajeda [...] outlined. Suzanne Grajeda MD documented in this encounterCherrington Hospital04-18-2024 History of Present illness Narrative* Heena Burgos RN - 02/06/2024 9:34 AM EDT Repeat CR 1.13 today reviewed with saman Sanderson to proceed with treatment. documented in this encounterCherrington Hospital04-17-2024 History of Present illness Narrative* Glenda Bhatia RN - 02/05/2024 10:16 AM EDT No tx today per DESTINY Jesus. IVF only. Glenda Bhatia RN documented in this encounterCherrington Hospital04-17-2024 History of Present illness Narrative* Ashlyn Sibley APRN.DESTINY - 02/05/2024 9:12 AM EDT Images from the original note were not included. NAME: Kennedy Kong [facility] NO.: [id number] DATE OF SERVICE: February 05, 2024 (Toñito) [...] December 05, 2023, was identified as having kcio-xscwx-wjusvo invasive papillary bladder cancer and has been [...] cancer Sister Colon Cancer Brother Ashlyn Sibley APRN.[employer] Hematology and Oncology Services Provided at: [facility], [facility]: Suzanne Henaozak Estrella documented in this [facility]04-16-2024 Miscellaneous Notes* Telephone Encounter - Sherron Singh [...] probably get some hydration documented in this encounterCherrington Hospital04-16-2024 Nurse Note* Epi Razo LPN - 02/04/2024 [...] the department without assist. documented in this encounterCher[facility]04-15-[facility]24 History of Present illness Narrative* Suzanne Grajeda [...] outlined. Suzanne Grajeda MD documented in this encounterCherrington Hospital04-12-2024 History of Present illness Narrative* Jana Pirere LSW - 01/31/2024 3:42 PM EDT .PSYCHOSOCIAL [...] many? 6 (one son Rios is ) critical care clinical nurse specialist arrangements needed: Na Grandchild(fredis): > 5 Home Health Provider: No Community Services: No Jennifer Identified: Yes Protestant/Spirituality: Church Are these practices or beliefs that may affect or influence treatment? Yes EMPLOYMENT/FINANCIAL/HEALTH INSURANCE: Employment: Retired Income source: Social Security Insurance: Medicare with co-insurance Prescription coverage: Yes Is the patient appropriate for referral to [facility] Assistance program? N/A Financial Distress: No FOOD [...] EPIC: No Health Care Durable Power of Aircraft Worker: Yes Scanned into EPIC: No Guardianship: NA [...] of bladder cancer. Patient lives alone in [place], [place]. Patient has children and grandchildren who are involved and supportive. Patient is retired from [employer]. 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 Suzanne Grajeda MD documented in this encounterCherrington Hospital04-09-2024 History of Present illness Narrative* Jasmine Saunders PA-C - 01/28/2024 8:30 AM EDT Images from the original note were not included. NAME: Kennedy Kong [facility] NO.: [id number] DATE OF SERVICE: January 28, 2024 (Nicky) Referring Provider: Dr. Leigh Grajeda (Elements copied from Dr. Chaparro's note dated January 03, 2024, have been reviewed and updated where appropriate, and all reflect current assessment and medical decision making during today's encounter, January 28, 2024) Additional Clinicians involved in Kennedy Kong's care: Lesa Esrtella, Avel Heath, Kylie Dietrich CC: follow up [...] December 05, 2023, was identified as having gwkq-grjax-nagzqr invasive papillary bladder cancer and has been [...] which included preparing to see the patient, bubm-nm-hdcj patient care, completing clinical documentation, obtaining and/or reviewing separately obtained history, performing a medically appropriate examination, counseling and educating the pat ient/family/caregiver, ordering medications, tests, or procedures, independently interpreting results (not separately reported), and communicating results to the patient/family/caregiver. Jasmine Saunders PA-C Hematology and Oncology Services Provided at: [place], [place] CC: Suzanne Estrella documented in this encounterCherrington Hospital04-05-2024 Miscellaneous Notes* Telephone Encounter - Sherron Singh [...] protocol. Sherron Singh RN documented in this encounterCherrington Hospital04-01-2024 History of Present illness Narrative* Suzanne Grajeda [...] prescribed. Suzanne Grajeda MD documented in this encounterCherrington Hospital04-01-2024 Nurse Note* Taina Love MA - 02/19/2024 1:21 PM EDT Back office UA test performed. Results entered in [employer] and doctor notified. Taina Love MA documented in this encounterCherrington Hospital04-01-2024 Miscellaneous Notes* Telephone Encounter - Ewa Marshall [...] will be 100% covered. documented in this encounterCherrington Hospital04-01-2024 History of Present illness Narrative* Ashlyn Sibley APRN.DESTINY - 01/20/2024 9:10 AM EDT Images from the original note were not included. NAME: Kennedy Kong [facility] NO.: [id number] DATE OF SERVICE: January 20, 2024 (Toñito) (Elements copied from Dr. Chaparro note dated January 02, have been reviewed and updated where appropriate, and all reflect current assessment and medical decision making during today's encounter, January 20, 2024.) Referring Provider: Dr. Leigh Grajeda Additional Clinicians involved in Kennedy Kong's care: Lesa Estrella, Avel Heath, Kylie Diertich DIAGNOSIS: ASSESSMENT: 88 year old man with [...] December 05, 2023, was identified as having cbaw-auduw-sgtizr invasive papillary bladder cancer and has been [...] Ovarian cancer Sister Colon Cancer Brother Ashlyn Sibley, FINISHER POLISHER.STITCHER SPECIAL MACHINE Hematology and Oncology Services Provided at: [facility], [place], [place] CC: Suzanne Estrella I spent a total of 30 minutes on the date of the service which included preparing to see the patient, qhft-aw-vwxy patient care, completing clinical documentation, obtaining and/or reviewing separately obtained history, performing a medically appropriate examination, counseling and educating the pat ient/family/caregiver, ordering medications, tests, or procedures, independently interpreting results (not separately reported), and communicating results to the patient/family/caregiver. documented in this encounterCherrington Hospital03-25-2024 Miscellaneous Notes* Telephone Encounter - Sherron Singh RN - 01/13/2024 11:56 AM EDT Pt will be here on Saturday for education (Cisplatin). Scripts for antiemetics pended. Sherron Singh RN documented in this encounterCherrington Hospital03-25-2024 Miscellaneous Notes* Telephone Encounter - Reina May [...] you Emeli Genao, RN documented in this encounterCherrington Hospital03-20-2024 History of Present illness Narrative* Leonidas Torres [...] PATIENT PRESENTS WITH AN IMPLANTABLE OR ATTACHED OLD COIN DEALER: No RADIOLOGY DEPARTMENT: CT; Exam(s) Completed: Chest PERIPHERAL IV DATA: Not applicable SIGNED BY: RT Genny(R) January 08, 2024 11:15 AM documented in this encounterCherrington Hospital03-20-2024 Nurse Note* Epi Razo LPN - 01/08/2024 10:55 AM EDT Radiation Therapy - Patient Education Note PATIENT NAME: Kennedy Kong PATIENT December 31, 2023 [facility] FACILITY[facility]LOCATION: [facility] READINESS TO LEARN Cognitive Ability: Alert and [...] need for social work, van service, and nail specialist. 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 Grajeda documented in this encounterCherrington Hospital03-15-2024 History of Present illness Narrative* Eugene Chaparro MD - 01/03/2024 11:15 AM EDT Images from the original note were not included. NAME: Kennedy Kong [facility] NO.: [id number] DATE OF SERVICE: January 03, 2024 (Deann) [...] December 05, 2023, was identified as having twgf-dgusl-uvokbu invasive papillary bladder cancer and has been [...] which included preparing to see the patient, xhgh-pu-iikr patient care, completing clinical documentation, obtaining and/or reviewing separately obtained history, performing a medically appropriate examination, counseling and educating the pat ient/family/caregiver, ordering medications, tests, or procedures, communicating with other HCPs (not separately reported), independently interpreting results (not separately reported), communicatingresults to the patient/family/caregiver, and care coordination (not separately reported). Eugene Chaparro MD, CPE Hematology and Oncology Services Provided at: [place], [place] Scribe Attestation: This note was scribed [...] direction. CC: Suzanne Estrella documented in this encounterCherrington Hospital03-12-2024 History of Present illness Narrative* Suzanne Grajeda [...] known coronary artery disease, and suffered an MA this past summer, underwent stent placement as [...] by: Suzanne Grajeda MD cc: Lesa Estrella ([facility]) [facility] [address] Kylie Dietrich [address] [facility] [id number] documented in this encounterCherrington Hospital03-12-2024 Nurse Note* Epi Razo LPN - 12/31/2023 8:53 AM EDT Pacemaker/Defibrillator?N Previous Cancer(s)?Colon cancer early -sx, chemo, RT and skin cancer-rt nares around 2008, Bladder cancer 2019-[facility] Previous Radiation? Y-radiation for colon cancer Lupus/Scleroderma?N On body monitoring device?N documented in this encounterCherrington Hospital03-06-2024 Hospital Discharge instructions Follow Up Care 12/25/2023 09:32:29 With:KARLO CHOI, Kylie Restrepo, URL Address: [facility] [address] [place] [phone] When: Unknown [facility] 02-15-2024 Hospital Discharge instructions Patient Education 12/05/2023 [...] including vitamins, herbs, eye drops, creams, and shdt-lio-vpoflnk medicines. Any problems you or family members [...] provider tells you to take them. Taking mapc-yxh-mqfzxet medicines, vitamins, herbs, and supplements. General instructions [...] provider. Document Revised: 10/12/2022 Document Reviewed: 10/12/2022 IntY Patient Education 2022 [employer]. 12/05/2023 13:36:01 Saldaña Catheter Care, Male-[facility](CUSTOM) Saldaña Catheter Care, Male A Saldaña catheter [...] cotton underwear to absorb moisture and keep continuous drier helper. 6. Keep the drainage bag below the [...] [facility] [address] [place] [address]- Business (1) When:12/12/2023 12:47:26 [facility]01-31-2024 History of Present illness Narrative* George Morgan, - 11/20/2023 9:20 AM EST Subjective Kennedy Widabner is a 88 y.o. male Chief Complaint [...] visit. He has a history non-ST elevation MA due to occluded obtuse marginal branch with [...] Disp: , Rfl: Assessment/Plan 1. Atherosclerosis of [place] coronary artery, unspecified whether angina present, unspecified whether [place] or transplanted heart 2. Stented coronary artery 3. Non-ST elevation myocardial infarction (NSTEMI) ([facility]) 4. Hyperlipidemia, unspecified hyperlipidemia type 5. History of colon cancer 6. Never smoked any substance 7. Malignant neoplasm of urinary bladder, unspecified site ([facility]) Scribe Attestation By signing my name below, Ana Maria Radha Carol Ann Ferreira LPN , Scribe attest that this documentation has been prepared under the direction and in the presence of Vinay Morgan DO. documented in this encounterTuscarawas Hospital Work Phone: 1(675) 431-700701-31-2024 Instructions* Patient Instructions* Lorena Garcia LPN - [...] time of your visit. 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 They are instructed to continue exercise and AHA diet plan. Continue secondary prevention measures. 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 Instructed to notify office for any unexpected weight gain > 3lbs and/or increased dyspnea, difficulty breathing during sleep, worsening lower extremity swelling, chest pain or lightheadedness. Reviewed GDMT w/ beta blockers, KRISTINE/ARB/ARNI,MRA and SGLT-2 Euvolemic w/o s/s CHF - denies CHEEMA, orthopnea or PND Oct,rimary hypertension (ICD-10 - I10)This patient is instructed to consume a healthy, low-fat, low-salt diet. They are also encouraged to continue exercise to achieve/maintain a normal BMI. 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 Monitor for now. Notify office w/ any pain or drainage Oct,History of colon cancer (ICD-10 - Z85.038)No s/s recurrence. Oct,History of bowel resection (ICD-10 - Z90.49) Oct,onstipation (ICD-10 - K59.00)Continue high fiber diet and Metamucil. Taking Metamucil tid w/ normal BM 3-4x daily. Miralax at HS has resulted in increased frequency during the night. - instructed to slowly decrease Miralax at HS, restarting at first s/s constipation [employer] Other [id number] Miscellaneous Notes* CDU Provider Note - Sahil [...] see in follow up, our CDU clinical housing case manager will assist the patient with [...] and ambulatory referrals. [facility] encounterU [facility] Progress [facility]* CDU Provider Note - Sahil [...] see in follow up, our CDU clinical housing case manager will assist the patient with [...] discharge summary, prescriptions, and ambulatory referrals. [facility] Work Phone: [phone] Hospital Discharge instructions* Discharge Instructions* SAVANNA Gtz - 10/10/2023 3:46 PM EST Please call GI to schedule a follow-up appointment. Follow-up: Call as soon as possible for an appointment: Gastroenterology Clinic: [phone] documented in this encounterOSU [facility]12[facility] Emergency department Note* Tracey Lawrence RN - 10/10/2023 1:59 PM EST Reason for Consult: Keith Documentation Spoke with Kennedy Kong @ 1219 Action Plan: Emergency Department Software Test Specialist and discussed the Medicare Outpatient Observation Notice (KEITH). Patient's questions answered and they verified understanding. Patient instructed to call Medicare at1-800-MEDICARE ( ) if they have any additional questions. Document signed by patient and Software Test Specialist. Copy provided for patient. Document scanned to Tracey ANDERSON Emergency Department Clinical Software Test Specialist [id number] Available via secure chat [facility]12[facility] Emergency department Note* Tracey Lawrence RN - 10/10/2023 1:59 PM EST Reason for Consult: Keith Documentation Spoke with Kennedy Kong @ 1219 Action Plan: Emergency Department Software Test Specialist and discussed the Medicare Outpatient Observation Notice (KEITH). Patient's questions answered and they verified understanding. Patient instructed to call Medicare at1-800-MEDICARE ( ) if they have any additional questions. Document signed by patient and Software Test Specialist. Copy provided for patient. Document scanned to Tracey ANDERSON Emergency Department Clinical Software Test Specialist [id number] Available via secure chat * Bronwyn Schaeffer [...] obstruction Disposition: Observation Unit Patient Kennedy Kong [id number] to be placed in observation unit for [...] note was dictated with the assistance of [employer] dictation software. Attempts were made to [...] Denies abd pain, nausea. [facility]Gre[facility]12[facility] Physician Emergency department Note* Bronwyn Schaeffer [...] obstruction Disposition: Observation Unit Patient Kennedy Kong [id number] to be placed in observation unit for [...] note was dictated with the assistance of [employer] dictation software. Attempts were made to proofread text, however some errors may still be present. Bronwyn Schaeffer MD Resident 10/10/23 0510 [facility] Work Phone: [phone] Emergency department Note* Dipti Patricia RN - 10/10/2023 1:38 AM EST Bed: E021 Expected date: Expected time: Means of arrival: Comments: triage [facility]12-20-[facility] Emergency department Note* Lucy Ibarra RN - 10/09/2023 10:32 PM EST Pt to ED from OSH for SBO. Last BM approx 2 hrs ago, but hadn't fr 7 days prior to that. Vomited this am. Denies abd pain, nausea. 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 [employer] Other 12-15-2023 Evaluation note* Encounter Date Diagnosis Assessment Notes Treatment Notes Treatment Clinical Notes Sep, Skin ulcer of sacrum with fat la yvonne exposed (ICD-10 - L98.422) No significant improvement No change in size of ulcer No bleeding or drainage Instructed to keep clean and dry. Call if increase in pain. Sep,hange in bowel habits (ICD-10 - R19.4)Hx of IBD and bowel resection. 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 Refer to GI for scope and dilatation Sep,History of bowel resection (ICD-10 - Z90.49)Alternating constipation and diarrhea. No bleeding, abdominal pain or fever. High fiber, low residue diet. 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 Will require referral for colonoscopy and stretching. 15 Nov, 2023History of bowel resection (ICD-10 - Z90.49)Secondary to IBD, in remission [employer] Other 11-01-2023 Evaluation note* Encounter Date Diagnosis Assessment Notes Treatment Notes Treatment Clinical Notes Aug, Skin ulcer of sacrum with fat la yvonne exposed (ICD-10 - L98.422) Stressed importance of keeping weight off area. He should sleep on his side. When sitting, should use padding or lean forwards Finish antibiotics, consider continuing low dose Doxycycline Aug,iarrhea, unspecified type (ICD-10 - R19.7)Keep area clean and dry. Wipe away from ulcer. Duoderm may help keep protected Aug,History of bowel resection (ICD-10 - Z90.49)Increase issues w/ loose, frequent BM Increases difficulty keeping area clean. Duoderm may help protect area [employer] Other 11-01-2023 Evaluation note* Encounter Date Diagnosis Assessment Notes Treatment Notes Treatment Clinical Notes Aug, Pressure injury of sacral region , stage 1 (ICD-10 - L89.151) [employer] Other 10-17-2023 Evaluation note* Encounter Date Diagnosis Assessment Notes Treatment Notes Treatment Clinical Notes Jul, Dysuria (ICD-10 - R30.0) [employer] Other 10-13-2023 Evaluation note* Encounter Date Diagnosis Assessment Notes Treatment Notes Treatment Clinical Notes Jul, Chronic venous insufficiency (IC D-10 - I87.2) Avoid salt and elevate lower extremities, support stockings, inspect legs and feet daily for blisters and ulcerations. Jul,Ulcer of right lower extremity, limited to breakdown of skin (ICD-10 - L97.911)Keep clean and dry Neosporin daily. Notify office w/ increased pain, erythema Jul,Skin ulcer of sacrum with fat layer exposed (ICD-10 - L98.422)Keep clean and dry No obvious s/s infection at this stage Difficult area to heal due to constant pressure when sitting May require referral to wound clinic Jul,dverse reaction to statin medication (ICD-10 - T46.6X5A)CK normal Continue Statin qod (M/W/F) Jul,Myalgia (ICD-10 - M79.10)Tolerable, continue Tylenol, hot showers, avoid strenuous activity [employer] Other 09-18-2023 Evaluation note* Encounter Date Diagnosis [...] reviewed and amended by provider signed below. Jun,Ischemic cardiomyopathy (ICD-10 - I25.5)Echo: LVEF improved to 60% post PCI/stent placement - 06/2023This patient is stable without activity related CP, dyspnea or lightheadedness. They are instructedto continue exercise and AHA diet plan. Continue secondary prevention measures. 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 Instructed to notify office for any unexpected weight gain > 3lbs and/or increased dyspnea, difficulty breathing during sleep, worsening lower extremity swelling, chest pain or lightheadedness. Reviewed GDMT w/ beta blockers, KRISTINE/ARB/ARNI,MRA and SGLT-2 Jun,rimary hypertension (ICD-10 - I10)This patient is instructed to consume a healthy, low-fat, low-salt diet. They are also encouraged to continue exercise to achieve/maintain a normal BMI. Jun,Elevated cholesterol (ICD-10 - E78.00)Instructed on diet and exercise with continued statin therapy.Discussed the beneficial effects of lo wering cholesterol in reducing the risk for cerebrovascular and cardiovascular disease. 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 They are to use intermittent heat and ice as needed. They may schedule a massage or gentle manipulation. They may safely use Tylenol as needed. Jun,ressure injury of sacral region, stage 1 (ICD-10 - L89.151) Jun,High risk medication use (ICD-10 - Z79.899) Jun,Hx of bladder cancer (ICD-10 - Z85.51)No s/s recurrence [employer] Other 08-18-2023 Evaluation note* Encounter Date Diagnosis Assessment Notes Treatment Notes Treatment Clinical Notes May, Spider bite wound, a ccidental or unintentional, initial encounter (ICD-10 - T63.301A) May,eneralized muscle ache (ICD-10 - M79.10) May,dverse reaction to statin medication (ICD-10 - T46.6X5A) May,Elevated cholesterol (ICD-10 - E78.00) [employer] Other 07-13-2023 Evaluation note* Encounter Date Diagnosis Assessment Notes Treatment Notes Treatment Clinical Notes Apr, Tinea pedis of both feet (ICD-10 - B35.3) [employer] Other 07-04-2023 Progress note Author Hang Pedersen [facility] April 23, 2023 9:24amNote Date/TimeJuly 2022 9:20[place] [address] Cardiology Progress Note Signed Patient: Kennedy Kong MR#: [id number] : 1935 Acct:[id number] Age/Sex: 87 / M Adm Date: 3 Loc: Room: [address] [place] [address] Type: ADM IN Attending Dr: Kiki Motta MD Copies to: ~ Date of Service: 04/23/2023 Subjective Principal diagnosis: High risk non-STEMI status post successful PCI to left circumflex/OM Interval history: Mr. Kong is doing well this morning. No residual chest pain or other anginal symptoms. No problems with right radial access site. Tolerating dual antiplatelet therapy well without untoward bleedingcomplications. No new complaints presently. Exam Physical Exam [...] MPV Neut % (Auto) Lymph % (Auto) [place] % (Auto) Eos % (Auto) Baso % (Auto) Nucleat RBC Rel Count Neut # (Auto) Lymph # (Auto) [place] # (Auto) Eos # (Auto) Baso # (Auto) PHA Creatinine Clear Sodium Potassium Chloride Carbon Dioxide Anion Gap BUN Creatinine Est GFR (CKD-EPI) Glucose Calcium Troponin I High Sens 51760.8 H* 15556.7 H* 56825.2 H* Triglycerides Cholesterol LDL Cholesterol, Calc VLDL Cholesterol HDL Cholesterol Cholesterol/HDL Ratio 04/22/23 04/23/23 04/23/23 23:35 03:41 03:41 Corrected WBC 8.1 Uncorrected WBC Count 8.1 RBC 4.52 Hgb 13.4 Hct 40.6 MCV 89.8 MCH 29.7 MCHC 33.1 RDW 13.6 Plt Count 215 MPV 6.8 Neut % (Auto) 73.2 Lymph % (Auto) 10.5 [place] % (Auto) 14.1 Eos % (Auto) 1.5 Baso % (Auto) 0.7 Nucleat RBC Rel Count 0.1 Neut # (Auto) 5.9 Lymph # (Auto) 0.9 L [place] # (Auto) 1.1 H Eos # (Auto) 0.1 Baso # (Auto) 0.1 PHA Creatinine Clear 55.30 Sodium 137 Potassium 4.5 Chloride 106 Carbon Dioxide 25.0 Anion Gap 10.5 BUN 24 Creatinine 0.99 Est GFR (CKD-EPI) > 60.0 Glucose 110 H Calcium 8.7 Troponin I High Sens 89604.0 H* Triglycerides 97 Cholesterol 148 LDL Cholesterol, Calc 73 VLDL Cholesterol 19 HDL Cholesterol 56 Cholesterol/HDL Ratio 2.6 04/23/23 03:41 Corrected WBC Uncorrected WBC Count RBC Hgb Hct MCV MCH MCHC RDW Plt Count MPV Neut % (Auto) Lymph % (Auto) [place] % (Auto) Eos % (Auto) Baso % (Auto) Nucleat RBC Rel Count Neut # (Auto) Lymph # (Auto) [place] # (Auto) Eos # (Auto) Baso # (Auto) PHA Creatinine Clear Sodium Potassium Chloride Carbon Dioxide Anion Gap BUN Creatinine Est GFR (CKD-EPI) Glucose Calcium Troponin I High Sens 84082.2 H* Triglycerides Cholesterol LDL Cholesterol, Calc VLDL Cholesterol HDL Cholesterol Cholesterol/HDL Ratio A&P - Cardiology (1) NSTEMI (non-ST elevated myocardial infarction): Assessment/Problem Details: Doing well on postprocedure day #1 status post PCI to left circumflex/OM. CCS 0. NYHA functional class Ib. Clinically euvolemic and well compensated. Patient is stable and ready for discharge to hometoday. Code(s): I21.4 - Non-ST elevation (NSTEMI) myocardial infarction Status: Acute Plan: Recommendations: 1. Discharge to home today 2. No lifting greater than equal to 10 pounds for 5 days with the right arm 3. Dual antiplatelet therapy: Aspirin 81 mg daily/ticagrelor 90 mg twice daily 4. Maintain current dosing of losartan/carvedilol/statin. 5. Please make sure patient has follow-up in [facility] within 10 days. Pending a favorable clinical evolution enrollment in phase 2 monitored cardiac rehabilitation is strongly recommended. (2) Colon cancer: Code(s): C18.9 - Malignant neoplasm of colon, unspecified Status: Acute (3) Essential hypertension: Code(s): I10 - Essential (primary) hypertension Status: Acute Time spent with patient Time Spent With Patient (min): 30 Documented By: Hang Pedersen MD 04/23/23 0920 Signed By: <Electronically signed by Hang Pedersen MD> 04/23/23 09 [facility] Work Phone: 1(268) 624-777607-03-2023 Consult note Author Ko Morgan [facility] April 22, 2023 12:46pmNote Date/TimeJuly 2022 12:42pmB[place] [address] Cardiology Consult Note Signed Patient: Kennedy Kong MR#: [id number] : 1935 Acct:[id number] Age/Sex: 87 / M Adm Date: 3 Loc: Room: [address] [place] [address] Type: ADM IN Attending Dr: Kiki Motta MD Copies to: MD Lesa Todd,DO Ko Morgan, ~ Cardiology HPI History of Present Illness Consult Date: 04/22/23 Reason for Consult: Non-ST elevation MA/ACS HPI: Mr. Kong is a 87 year old male seen in interventional cardiology consultation at request of hospitalist and gentleman who was transferred from [facility] emergency room after being awakened with chest discomfort at 3 AM this morning. The discomfort radiated to his shoulder, back, left side; finallydrove himself to the emergency room, he received 1 sublingual nitroglycerin with relief. Initial high-sensitivity troponin was elevated at 648; initial ECGs revealed sinus rhythm with J-point elevation in the inferolateral leads, however somewhat similar to previous remote ECG at [facility] had on record Patient was excepted to the hospitalist service this morning. He did not receive any upstream heparin or antiplatelet therapies, [facility] ECG and labs are reviewed there are no labs or ECG on admission here Patient is presently stable without chest discomfort. He does admit to abnormalbowel activity due to previous history of colon cancer in 5 separate surgeries. He does admit to history of hypertensiontreated with losartan, denies diabetes and tobacco use [...] signed by Ko Morgan DO> 04/22/23 1246 [facility] Work Phone: 1(192) 863-663607-03-2023 [facility] History and physical note Author Kiki Motta [facility] April 22, 2023 11:53amNote Date/TimeJuly 2022 11:10amBremerton[place] [address] Hospitalist H&P Signed Patient: Kennedy Kong MR#: [id number] : 1935 Acct:[id number] Age/Sex: 87 / M Adm Date: 3 Loc: Room: [address] [place] [address] Type: ADM IN Attending Dr: Kiki Motta [...] negative unless noted below or in HPI [facility] Attestation Statement: The following information [...] setting as: INPATIENT because of an expectation ofan over 2 midnight stay. Estimated length of stay (# of days): 2 Documented By: Kiki Motta MD 04/22/23 1108 Signed By: <Electronically signed by Kiki Motta MD> 04/22/23 1151 [facility] Work Phone: 1(260) 484-767806-23-2023 Evaluation note* Encounter Date Diagnosis Assessment Notes Treatment Notes Treatment Clinical Notes Mar, Tinea pedis of both feet (ICD-10 - B35.3) Keep dry, cleanse socks daily and open to air at home. Use cream bid and take Lamisil qd x 14 days [employer] Other 04-19-2023 Evaluation note* Encounter Date Diagnosis Assessment Notes Treatment Notes Treatment Clinical Notes Jan, Carbuncle and furuncle of buttoc k (ICD-10 - L02.33) Warm compresses or warm soak. 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 Avel Heath MD [facility] Evaluation note* Encounter Date Diagnosis Assessment Notes Treatment Notes Treatment Clinical Notes Dec, Essential hypertension (ICD-10 - I10) This patient is instructed to consume a healthy, low-fat, low-salt diet. They are also encouraged to continue exercise to achieve/maintain a normal BMI. Dec,hronic venous insufficiency (ICD-10 - I87.2)Avoid salt and elevate lower extremities, support stockings, inspect legs and feet daily for blisters and ulcerations. 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 They are to use intermittent heat and ice as needed. They may schedule a massage or gentle manipulation. They may safely use Tylenol as needed. Dec,enign prostatic hyperplasia with lower urinary tract symptoms (ICD- 10 - N40.1)Symptoms tolerable. Continue Tamsulosin as prescribed. Aware that may cause lightheadedness. Dec,nemia, unspecified type (ICD-10 - D64.9)Anemia of chronic inflammation. 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)Continue surveillance scopes Denies hematuria f/u Dec,History of ulcerative colitis (ICD-10 - Z87.19)No s/s active disease Dec,History of bowel resection (ICD-10 - Z90.49)Diet adjustements to control constipation and diarrhea [employer] [facility] [employer] Other 03-09-2023 Evaluation note* Encounter Date Diagnosis Assessment Notes Treatment Notes Treatment Clinical Notes Dec, Anemia, unspecified type (ICD-10 - D64.9) [employer] [facility] [employer] Other 03-07-2023 Evaluation note* Encounter Date Diagnosis Assessment Notes Treatment Notes Treatment Clinical Notes Dec, Anemia, unspecified type (ICD-10 - D64.9) [employer] Other 01-13-2023 Evaluation + Plan note Diagnostic Tests Pending * [facility]) 11/02/22 [facility] 08-15-2022 Evaluation + Plan note Diagnostic Tests Pending * [facility] ([facility]) 06/04/22 [facility] 05-13-2022 Evaluation + Plan note Diagnostic Tests Pending * [facility]rine [facility]to ([facility]) 03/02/22 [facility] 03-21-2022 Evaluation + Plan note Diagnostic Tests Pending * [facility]rine [facility] ([facility]) 01/08/22 [facility] 10-02-1994 Evaluation note* Author Zofia Gates [facility] HospitalAuthoredOctober 2023 [id number] man with history of colon cancer s/p [...] bowel movement every 1 to 2 days [facility] Work Phone: Discharge summary Author Kiki Motta [facility] April 23, 2023 11:20amNote Date/TimeJuly 2022 11:20amB[place] [address] Discharge Summary Signed Patient: Kennedy Kong MR#: [id number] : 1935 Acct:[id number] Age/Sex: 87 / M Adm Date: 3 Loc: Room: [address] [place] [address]: Kiki Motta MD Copies to: [...] never had a chest pain or heart attackbefore. Patient admitted to the hospital for observation [...] discharge: 04/23/23 03:41: Troponin I High Sens 38061.2 H* 04/23/23 03:41: PHA Creatinine Clear 55.30, Sodium 137, Potassium 4.5, Chloride 106, Carbon Qjylkdl19.0, Anion Gap 10.5, BUN 24, Creatinine 0.99, Est GFR (CKD- EPI) > 60.0, Glucose 110 H, Calcium 8.7, Triglycerides 97, Cholesterol 148, LDL Cholesterol, Calc 73, VLDL Cholesterol 19, HDL Cholesterol 56, Cholesterol/HDL Ratio 2.6 04/23/23 03:41: Corrected WBC 8.1, Uncorrected WBC Count 8.1, RBC 4.52, Hgb 13.4, Hct 40.6, MCV 89.8, MCH 29.7, MCHC 33.1, RDW 13.6, Plt Count 215, MPV 6.8, Neut % (Auto) 73.2, Lymph % (Auto) 10.5, [place] % (Auto) 14.1, Eos % (Auto) 1.5, Baso % (Auto) 0.7, Nucleat RBC Rel Count 0.1, Neut # (Auto) 5.9, Lymph # (Auto) 0.9 L, [place] # (Auto) 1.1 H, Eos # (Auto) 0.1, Baso # (Auto) 0.1 04/22/23 23:35: Troponin I High Sens 81401.0 H* 04/22/23 20:04: Troponin I High Sens 60154.2 H* 04/22/23 17:07: Troponin I High Sens 37119.7 H* 04/22/23 14:25: Troponin I High Sens 54240.8 H* Exam Physical Exam Vital Signs: Temp [...] stent occurs in the first 2-3 weeks afterimplantation, you will need to take anticoagulants for at least 12-18 months. ANTICOAGULATION MEDICATION Aspirin 81mg once a day, Ticagrelor (Brilinta) 90mg twice a day STATIN MEDICATION Atorvastatin (Lipitor) 80 mg Drug-Eluting Stent (CASSIDY) DO NOT discontinue Brilinta/Aspirin during the first few months regardless of what you are advised by your family doctor or pharmacist, without first calling the online marketing manager who implanted the stent. If you require [...] weight lifting, stair steppers, etc. until the online marketing manager approves these activities. Check with the online marketing manager on your first follow-up visit. CALL YOUR PHYSICIAN at [phone]: -If bleeding should occur from the catheter insertion site- apply pressure to the site then immediately call us. -Report any fever, redness, drainage, increased swelling, or firmness at the catheter insertion site. Some bruising or slight swelling may be present at the time of discharge. -Should arm or leg become cold, numb, white, or blue, contact the online marketing manager immediately. -IF you should experience episodes of angina, e.g. chest discomfort, heaviness, tightness, pressureburning with or without radiation to the neck, jaw, arms or back- use 1 Nitrostat tablet under yourtongue every 5-10 minutes and up to three tablets. IF NO RELIEF, CALL 911 or GO TO THE NEAREST EMERGENCY ROOM. -Please notify our office if you have recurrent angina. -[Cardiac Rehab Education Provided. Participation in the Cardiopulmonary Rehabilitation program is recommended. Please call Central Scheduling at [phone] to schedule your appointment.] The attending online marketing manager or [facility] nurse clinician should provide you with specific instructions regarding activity, diet, medications, and further follow up for you. Follow the medication instructions provided on your discharge. If the dosages and instructions on this sheet differ from the dosage and instructions on the bottle, follow the instructions on the bottle. [facility] is not responsible for incorrect prescription information provided by thepatient during their visit. Do not stop your medications without consulting your health care provider. Please take the list with you to your next doctor's appointment. Instructions: Coronary Angioplasty (DC), Coronary Stenting (DC), Angina (DC), Chest Pain (DC), DrugEluting Stents Prescriptions: New Brilinta 90 mg Tablet [...] signed by Kiki Motta MD> 04/23/23 1120 [facility] Work Phone: Evaluation + Plan note Future Appointments Appointment Date:12/10/2023 09:00:00 AM Scheduled Provider: Location:[facility] Appointment Type:URO Nurse Visit Appointment Date:12/16/2023 09:15:00 AM Scheduled Provider:Kylie DIETRICH MD Location:[facility] Future Appointments Appointment Date:04/20/2024 01:30:00 PM Scheduled Provider:Kylie DIETRICH MD Location:[facility] Appointment Type:URO Office Visit [facility] evaluation + Plan note Future Appointments Appointment Date:04/20/2024 01:30:00 PM Scheduled Provider:Kylie DIETRICH MD Location:[facility] Appointment Type:URO Office Visit Diagnostic Tests Pending * Urine Culture [facility]04[facility]24 [facility] Future Appointments Appointment Date:06/14/2025 08:30:00 AM Scheduled Provider:Kylie DIETRICH MD Location:[facility] Appointment Type:URO Procedure 15 min [facility] evaluation noteNo reeplay.it[place] [facility] Other Evaluation note* Diagnosis Irregular bowel habits- Primary Other specified disorder of intestines documented in this encounter [facility] note* Diagnosis Onset Date Resolution Status Colon cancer acuteEssential hypertensionacuteNSTEMI (non-ST elevated myocardial infarction) acute [facility] Work Phone: Evaluation note* Diagnosis Small bowel obstruction- Primary Unspecified intestinal obstruction Abdominal pain, generalized [facility] assessment information available [facility] Work Phone: Evaluation note* Diagnosis Atherosclerosis of [place] coronary artery, unspecified whether angina present, unspecified whether [place] or transplanted heart 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 Non-ST elevation myocardial infarction (NSTEMI) (CMS/HCC) Acute myocardial infarction, subendocardial infarction, episode of care unspecified Hyperlipidemia, unspecified hyperlipidemia type History of colon cancer Personal history of malignant neoplasm of large intestine Never smoked any substance Malignant neoplasm of urinary bladder, unspecified site (CMS/HCC) documented in this encounter [facility] Work Phone: Evaluation note* Diagnosis 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 [facility]* Diagnosis 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 [facility]* Diagnosis 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 [facility]* Diagnosis 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 [facility] Diagnosis 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 [facility] Diagnosis 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 [facility] Diagnosis 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 [facility] Diagnosis 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 [facility]* Diagnosis Malignant neoplasm of trigone of [...] of urinary bladder [facility]* Diagnosis Onset Date Resolution Status Benign prostatic hyperplasia with lower urinary tract symptoms acuteChronic HFrEF (heart failure with reduced ejection fraction)acuteChronic venous insufficiencyacuteConstipation, chronicacuteIschemic cardiomyopathyacute Papillary adenocarcinoma of bladderacute [facility] Work Phone: Evaluation note* Diagnosis 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 Anemia, unspecified type [facility]* Diagnosis 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 [facility] Diagnosis Malignant neoplasm of urinary bladder, unspecified site (HCC) [facility] Diagnosis 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 [facility] Diagnosis Malignant neoplasm of urinary bladder, unspecified site (HCC)- Primary Lung nodules Other nonspecific abnormal finding of lung field Stage 3a chronic kidney disease (HCC) [facility] [...] of lung field [facility]* Diagnosis Mixed hyperlipidemia- Primary Atherosclerosis of [place] coronary artery, unspecified whether angina present, unspecified whether [place] or transplanted heart Essential (primary) hypertension Unspecified essential hypertension BMI 27.0-27.9,adult Localized edema Edema documented in this encounter [facility] Work Phone: Evaluation note* Diagnosis BMI 26.0-26.9,adult- Primary Localized edema Edema documented in this encounter [facility] Work Phone: Evaluation note* Diagnosis Malignant neoplasm of urinary bladder, unspecified site (HCC) Lung nodules Other nonspecific abnormal finding of lung field Stage 3a chronic kidney disease (HCC) Anemia, unspecified type Malignant neoplasm of overlapping sites of bladder (HCC) Malignant neoplasm of other specified sites of bladder [facility]* Diagnosis 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 [facility]* Diagnosis Malignant neoplasm of overlapping sites of bladder (HCC)- Primary Malignant neoplasm of other specified sites of bladder Pulmonary nodule, left Solitary pulmonary nodule 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 Personal history of malignant neoplasm of bladder Acquired absence of organ, urinary bladder Acquired absence of organ, other parts of urinary tract documented [facility] encounter [facility]* Diagnosis Valgus deformity of both great toes- Primary Acquired deformity of left toe Acquired deformity of right toe Onychomycosis Dermatophytosis of nail Idiopathic progressive polyneuropathy documented [facility] Narrative - Reported* Type Description Date Medical History Colon Cancer Medical HistoryChronic Kidney DiseaseMedical HistoryHyperglycemiaMedical History Essential hypertensionMedical HistoryChronic venous insufficiencyMedical History Left leg swellingMedical HistoryBradycardiaMedical HistoryAnemia in other chronic diseases classified elsewhereMedical HistoryHydrocele, leftMedical HistoryAsteatotic eczemaMedical HistoryBenign prostatic hyperplasia with lower urinary tract symptomsMedical HistoryTRANSITIONAL CALL CARCINOMA, BLADDERMedical HistoryGross hematuriaMedical HistoryLumbosacral spondylosis with radiculopathy Medical HistoryAllergic contact dermatitisMedical HistoryDizzinessMedical HistoryHISTORY OF ULCERTIVE COLITISSurgical HistorycolonoscopySurgical History [id number] HistorycancerSurgical Historycolonoscopy [id number] [id number] Historyscar tissueSurgical [id number] Surgical HistoryCystoscopy12/2022Hospitalization Historysee above [employer] Other History general Narrative - Reported* Type Description Date Medical History Colon Cancer Medical HistoryChronic Kidney DiseaseMedical HistoryHyperglycemiaMedical History Essential hypertensionMedical HistoryChronic venous insufficiencyMedical History Left leg swellingMedical HistoryBradycardiaMedical HistoryAnemia in other chronic diseases classified elsewhereMedical HistoryHydrocele, leftMedical HistoryAsteatotic eczemaMedical HistoryBenign prostatic hyperplasia with lower urinary tract symptomsMedical HistoryTRANSITIONAL CALL CARCINOMA, BLADDERMedical HistoryGross hematuriaMedical HistoryLumbosacral spondylosis with radiculopathy Medical HistoryAllergic contact dermatitisMedical HistoryDizzinessMedical HistoryHISTORY OF ULCERTIVE COLITISMedical HistoryASHDSurgical History colonoscopySurgical [id number] HistorycancerSurgical Historycolonoscopy [id number] [id number] Historyscar tissue Surgical [id number] HistoryCystoscopy12/2022Surgical History LHC, PCI/stent [facility] branch of the [facility]x7/2022Hospitalization Historysee above [employer] Other History general Narrative - Reported* Type Description Date Medical History Colon Cancer Medical HistoryChronic Kidney DiseaseMedical HistoryHyperglycemiaMedical History Essential hypertensionMedical HistoryChronic venous insufficiencyMedical History Left leg swellingMedical HistoryBradycardiaMedical HistoryAnemia in other chronic diseases classified elsewhereMedical HistoryHydrocele, leftMedical HistoryAsteatotic eczemaMedical HistoryBenign prostatic hyperplasia with lower urinary tract symptomsMedical HistoryTRANSITIONAL CALL CARCINOMA, BLADDERMedical HistoryGross hematuriaMedical HistoryLumbosacral spondylosis with radiculopathy Medical HistoryAllergic contact dermatitisMedical HistoryDizzinessMedical HistoryHISTORY OF ULCERTIVE COLITISMedical HistoryASHDSurgical History fzuerenvwfagbn8531Xqgottbr HistorycancerSurgical Historycolonoscopy (2002, 2007, 2013, 2016, 2019Surgical [id number] Historyscar tissueSurgical [id number] HistoryCystoscopy3/2022Surgical HistoryLHC, PCI/stent OM branch of the LCx7/2022Hospitalization Historysee above [employer] Other Hospital course Narrative No data available for this section [facility] Discharge instructions No data available for this section [facility] Discharge instructions Additional Instructions DISCHARGE INSTRUCTIONS [...] doctor or pharmacist, without first calling the online marketing manager who implanted the stent. If you require [...] weight lifting, stair steppers, etc. until the online marketing manager approves these activities. Check with the online marketing manager on your first follow-up visit. CALL YOUR PHYSICIAN at [phone]: -If bleeding should occur from the catheter insertion site- apply pressure to the site then immediately call us. -Report any fever, redness, drainage, increased swelling, or firmness at the catheter insertion site. Some bruising or slight swelling may be present at the time of discharge. -Should arm or leg become cold, numb, white, or blue, contact the online marketing manager immediately. -IF you should experience episodes of [...] is recommended. Please call Central Scheduling at [phone] to schedule your appointment.] The attending online marketing manager or [facility] nurse clinician should provide you with specific instructions regarding activity, diet, medications, and further follow up for you. Follow the medication instructions provided on your discharge. If the dosages and instructions on this sheet differ from the dosage and instructions on the bottle, follow the instructions on the bottle. [facility] is not responsible for incorrect prescription information provided by the patient during their visit. Do not stop your medications without consulting your health care provider. Please take the list with you to your next doctor's appointment.[facility] Work Phone: Progress note No data available for this section [facility] reason for referral (narrative)* Consultation (Routine) - New RequestSpecialtyDiagnoses / ProceduresReferred By ContactReferred To ContactGastroenterology Diagnoses Small bowel obstruction Abdominal pain, generalized Vanscoyoc, Seferino J, FINISHER POLISHER-STITCHER SPECIAL MACHINE [address] [place] [address] Referral IDStatusReasonStart DateExpiration DateVisits RequestedVisits [id number] Dirnpuu97/ [facility] Consultation (Routine) - AuthorizedSpecialtyDiagnoses / ProceduresReferred By ContactReferred To ContactCardiology Diagnoses Atherosclerosis of [place] coronary artery, unspecified whether angina present, unspecified whether [place] or transplanted heart Stented coronary artery Non-ST elevation myocardial infarction (NSTEMI) ([facility]/HCC) Procedures Follow Up In Cardiology George Morgan DO [address] [place] [address] 2, [address] [place] [address] George Morgan DO [address] [facility] 2, [address] [place] [address] Ref[facility]Status[facility] DateExpiration DateVisits RequestedVisits [id number]/31/20241/ 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) Edema leg Procedures US DVT LOWER BILATERAL DUP-SCAN XTR VEINS COMPLETE BILATERAL STUDY Suzanne Grajeda MD [address] [place] [address] [place] [address] [place] [address] Referral IDStatusReasonStart DateExpiration DateVisits RequestedVisits [id number] Review Auto-Generated Referral [facility] for visit Narrative* Auth/CertSpecialtyDiagnoses / ProceduresReferred By ContactReferred To Contact Diagnoses Bowel Obstruction Sahil Camacho MD [address] [place] [address] [facility] [address] [place] [address] Referral IDStatusReasonStart DateExpiration DateVisits RequestedVisits [id number] [facility] Summary Purpose Family History No Family History Records Found Relationship Condition Age at Onset Recorded Date/T ayden father Malignant neoplasm of colon Unknown Unknown Family Member Name Dates Details Family history of malignant neoplasm: Father(V16.9, Z80.9) Status:ActiveFamily history of cardiac disorder: Father, Brother(V17.49, Z82.49) Status:ActiveHistory of PTCA: Father, Brother(V45.82, Z98.61) Status:ActiveFamily history of deep venous thrombosis: Mother, Father, Brother (V17.49, Z82.49) Status:Active Unknown Family Member Name Dates Details Family history of malignant neoplasm: Father(V16.9, Z80.9) Status:ActiveFamily history of cardiac disorder: Father, Brother(V17.49, Z82.49) Status:ActiveHistory of PTCA: Father, Brother(V45.82, Z98.61) Status:ActiveFamily history of deep venous thrombosis: Mother, Father, Brother (V17.49, Z82.49) Status:Active Unknown Family Member Name Dates Details Family history of malignant neoplasm: Father(V16.9, Z80.9) Status:ActiveFamily history of cardiac disorder: Father, Brother(V17.49, Z82.49) Status:ActiveHistory of PTCA: Father, Brother(V45.82, Z98.61) Status:ActiveFamily history of deep venous thrombosis: Mother, Father, Brother (V17.49, Z82.49) Status:Active Unknown Family Member Name Dates Details Family history of malignant neoplasm: Father(V16.9, Z80.9) Status:ActiveFamily history of cardiac disorder: Father, Brother(V17.49, Z82.49) Status:ActiveHistory of PTCA: Father, Brother(V45.82, Z98.61) Status:ActiveFamily history of deep venous thrombosis: Mother, Father, Brother (V17.49, Z82.49) Status:Active Relationship Condition Age at Onset Recorded Date/T ayden father Malignant neoplasm of colon Unknown DeceasedUnknownMalignant neoplasmUnknownbrotherDeceasedUnknownNot SpecifiedHeart diseaseUnknownHistory of strokeUnknown Relationship Condition Age at Onset Recorded Date/T ayden father Malignant neoplasm of colon Unknown DeceasedUnknownMalignant neoplasmUnknownbrotherDeceasedUnknownmotherHeart diseaseUnknownHistory of strokeUnknown Advance Directives No Advanced Directives Records Found Advance Directive Response Recorded Date/ Time Advance Directives No May 06 10:25am Code StatusDate ActivatedDate InactivatedCommentsFull Code11/04/2022 2:12 AM Advance Directive Response Recorded Date/ Time Advance Directives No May 06 9:25am Procedure Findings Note MR#: [id number] [facility] Pt. Name: Kennedy Kong Surgery Date: [...] not included)... Note MR#: [id number] [facility] Pt. Name: Kennedy Kong Surgery Date: 04/16/2019 Room #: Z0 Date of : 1935 PROCEDURE NOTE ATTENDING: Gabriel Perez M.D. [place] TECHNICIAN: Theresa Jiménez M.D. PROCEDURE: Colonoscopy with polypectomy and [...] Severe Constipation Chief Complaint Severe Constipation stomach painReason for VisitBenign prostatic hyperplasia with lower urinary tract symptoms Chronic HFrEF (heart failure with reduced ejection fraction) Chronic venous insufficiency Constipation, chronic Ischemic cardiomyopathy Papillary adenocarcinoma of bladder Chief Complaint stomach pain follow upReason for VisitHistory of colon cancer Hx of inflammatory bowel disease Irritable bowel [...] 2024 9:48am Papillary adenocarcinoma of bladder Dece mber 2023 9:48am Chief Complaint Admit Date CC Adult Risk Stratification September 152023 11:34am Wellness September 21, 2024 9 :48am Unknown November 23, 2024 8 :55am sinus pressure, headache December 08, 2024 1:30pm Chief Complaint Admit Date Unknown November 23, 2024 8 :55am sinus pressure, headache December 08, 2024 1:30pm URI January 08, 2025 8:4 8am Reason for Visit Admit Date Ischemic cardiomyopathy December 08 025 1:30pm Allergic rhinitis December 08, 2024 [...] 23, 2025 9:59am Chronic venous insufficiency March 23 025 9:59am Constipation, chronic March 23, 2025 9:5 9am Ischemic cardiomyopathy March 23, 2025 9 :59am Papillary adenocarcinoma of bladder March 23, 2025 9:59am Chief Complaint * KENNEDY KONG is being seen for follow-up of a hospitalization for STEMI/PCI. * Patient is an 87-year-old gentleman who returns following recent non-ST elevation MA due to occluded obtuse marginal branch with primary revascularization with drug-eluting stent and is doing well. He has mild LV dysfunction, No significant coronary disease, ejection fraction of 45%. 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) Procedures CT SIM PLANNING RADIATION ONCOLOGY THER RAD SIMULAJ-AIDED FIELD SETTING COMPLEX Suzanne Grajeda MD [address] [place] [address] Referral IDStatusReasonStart DateExpiration DateVisits RequestedVisits [id number] Review PCP Requested Referral /[id number] / ProceduresReferred By ContactReferred To ContactOncology Diagnoses 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) Procedures CONSULT TO ONCOLOGY OFFICE/OUTPATIENT [facility] 60 MINUTES Suzanne Grajeda MD [address] [place] [address] Referral IDStatusReasonStmcgregor DateExpiration DateVisits RequestedVisits [id number] PCP Requested Referral [id number] / ProceduresReferred By ContactReferred To ContactCT IMAGING Diagnoses 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) Procedures CT CHEST WO IVCON DIAGNOSTIC COMPUTED TOMOGRAPHY THORAX W/O CNTRST Suzanne Grajeda MD [address] [place] [address] [place] [address] Referral IDStatusReasonStart DateExpiration DateVisits RequestedVisits [id number] Auto-Generated Referral / Additional Source Comments (unrecognized sect ion and [...] section and content) DATE CREATED AUTHOR 04/16/2018 [facility] DATE CREATED AUTHOR AUTHOR'S ORGANIZ ATION 04/25/2019 [facility] DATE CREATED AUTHOR AUTHOR'S ORGANIZ ATION 11/04/2019 [facility] DATE CREATED AUTHOR AUTHOR'S ORGANIZ ATION 12/28/2022 [facility] DATE CREATED AUTHOR AUTHOR'S ORGANIZ ATION 01/23/2023 [facility] DATE CREATED AUTHOR AUTHOR'S ORGANIZ ATION 05/03/2023 [facility] DATE CREATED AUTHOR AUTHOR'S ORGANIZ ATION 06/27/2023 [facility] DATE CREATED AUTHOR AUTHOR'S ORGANIZ ATION 09/17/2023 [facility] DATE CREATED AUTHOR AUTHOR'S ORGANIZ ATION 03/08/2024 [facility] DATE CREATED AUTHOR AUTHOR'S ORGANIZ ATION 11/02/2024 [facility] DATE CREATED AUTHOR AUTHOR'S ORGANIZ ATION 03/28/2025 [facility] DATE CREATED AUTHOR AUTHOR'S ORGANIZ ATION 04/04/2025 [facility] DATE CREATED AUTHOR AUTHOR'S ORGANIZ ATION 04/18/2025 [facility] DATE CREATED AUTHOR AUTHOR'S ORGANIZ ATION 05/24/2025 [facility] DATE CREATED AUTHOR AUTHOR'S ORGANIZ ATION 06/11/2025 [facility] DATE CREATED AUTHOR AUTHOR'S ORGANIZ ATION 07/23/2025 [facility] EPIC Care Team (unrecognized sect ion and content) Team Status: Active Member Role Status Dates Lesa Estrella DO Primary Care Provider Active Team [...] Active Start: May 25, 2024 Ko Morgan DOAttending ProviderActiveStart: May 25, 2024 Team Status: Inactive Member [...] Provider Active Start: July 01, 2024 Eugene V Abhyanksamantha , MDAttending ProviderActiveStart: July 01, 2024 Team Status: Inactive Member Role Status Dates Lesa Estrella DO Primary Care Provider Active Start: July 21, 2024 End: July 21, 2024Zofia Gates MDAttending ProviderActiveStart: July 21, 2024 End: July 21, 2024 Team Status: Inactive Member Role Status Senthil Estrella DO Primary Care Provide r, Attending Provider Active Start: March 19, 2024 End: March 19, 2024 Team Status: Active Member Role Status Senthil Estrella DO Primary Care Provider Active Start: March 25, 2024 Eugene V Abhyanksamantha , MDAttending ProviderActiveStart: March 25, 2024 Team Status: Active Member [...] 2024 Team Status: Inactive Member Role Status Senthil Estrella DO Primary Care Provide r, Attending Provider Active Start: January 31, 2024 End: January 31, 2024 Team Status: Active Member Role Status Senthil Estrella DO Primary Care Provide r, Attending Provider Active Start: February 04, 2024 Team Status: Active Member Role Status Dates Lesa Estrella DO Primary Care Provider Active Start: February 06, 2024 Eugene V Abhyankar , MDAttending ProviderActiveStart: February 06, 2024 Team Status: Active Member Role Status Dates Lesa Estrella DO Primary Care Provider Active Start: February 12, 2024 Eugene V Abhyankar , MDAttending ProviderActiveStart: February 12, 2024 Team Status: Active Member Role Status Dates Lesa Estrella DO Primary Care Provider Active Start: February 19, 2024 Eugene V Abhyankar , MDAttending ProviderActiveStart: February 19, 2024 Team Status: Active Member Role Status Dates Lesa Estrella DO Primary Care Provider Active Start: February 26, 2024 Eugene V Abhyankar , MDAttending ProviderActiveStart: February 26, 2024 Team MemberRelationshipSpecialtyStart DateEnd Date Lesa Estrella DO [facility]01/16/12 Team Status: Inactive Member Role Status Dates Lesa Estrella DO Primary Care Provider Active Alaa Alalisa MDAdmit Provider, Attending ProviderActiveGrace West MD Other ProviderActiveRaheem Giles MDOther ProviderActiveKimberly Skinner MD Other ProviderActiveWisusan Lay MDOther ProviderActiveHeaibis Gould , JUSTINOther ProviderActivePeyton Norman MDOther ProviderActiveCarol Jeremi Rothman MAINS AND SERVICE SUPERVISOR-BCOther ProviderActiveEndy Arevalo MDOther ProviderActive Lucio Osei Dillon MDOther ProviderActiveW Ignacio Morgan , DOOther Provider ActiveTheodora Love APRNOther ProviderActiveMoluan Abraham MDOther ProviderActiveTeam MemberRelationshipSpecialtyStart DateEnd Date Jimmy Estrella MD [address] [place] [address] [facility]11/03/22 Team Status: Inactive Member Role Status Dates Lesa Estrella DO Primary Care Provider Active Imad DESHAWN Gatesttending ProviderActiveTeam MemberRelationshipSpecialtyStart DateEnd Date Lesa Estrella DO [address] [place] [address] PCP - GeneralInternal Medicine11/20/23Team MemberRelationshipSpecialtyStart Date End Date Jimmy Estrella MD [address] [place], [place] [address] [id number] PCP - GeneralFamily Medicine11/03/22Team MemberRelationshipSpecialtyStart DateEnd Date Lesa Estrella DO PCP - GeneralInternal Medicine01/16/12Team MemberRelationshipSpecialtyStart Date End Date Lesa Estrella DO PCP - GeneralInternal Medicine01/16/12Team MemberRelationshipSpecialtyStart Date End Date Lesa Estrella DO PCP - GeneralInternal Medicine01/16/12Team MemberRelationshipSpecialtyStart Date End Date Lesa Estrella DO PCP - GeneralInternal Medicine01/16/12Team MemberRelationshipSpecialtyStart Date End Date Lesa Estrella DO PCP - GeneralInternal Medicine01/16/12Team MemberRelationshipSpecialtyStart Date End Date Lesa Estrella DO PCP - GeneralInternal Medicine01/16/12 Eugene Chaparro MD [address] [place] [address] [place] [address] PhysicianHematology/Oncology3/25/24 Suzanne Grajeda MD [address] [place] [address] PhysicianRadiation Oncology01/13/24 Ashlyn Sibley, FINISHER POLISHER.STITCHER SPECIAL MACHINE [address] [facility] [place] [place] [address] Nurse PractitionerHematology/Oncology01/13/24 Sherron Singh, JUSTIN [address] [facility] [place] [address] Specialty Care CoordinatorHematology/Oncology01/13/24Team MemberRelationship SpecialtyStart DateEnd Date Lesa Estrella DO PCP - GeneralInternal Medicine01/16/12Team MemberRelationshipSpecialtyStart Date End Date Lesa Estrella DO PCP - GeneralInternal Medicine01/16/12 Eugene Chaparro MD [address] [facility] [place] [address] PhysicianHematology/Oncology01/13/24 Suzanne Grajeda MD [address] [facility] [place] [address] PhysicianRadiation Oncology01/13/24 Ashlyn Sibley, FINISHER POLISHER.STITCHER SPECIAL MACHINE [address] [place] [address] Nurse PractitionerHematology/Oncology01/13/24 Sherron Singh, JUSTIN [address] [facility] [place] [address] Specialty Care CoordinatorHematology/Oncology01/13/24Team MemberRelationship SpecialtyStart DateEnd Date Lesa Estrella DO PCP - GeneralInternal Medicine01/16/12 Eugene Chaparro MD [address] [facility] [place] [address] PhysicianHematology/Oncology01/13/24 Suzanne Grajeda MD [address] [facility] [place] [address] PhysicianRadiation Oncology01/13/24 Ashlyn Sibley, FINISHER POLISHER.STITCHER SPECIAL MACHINE [address] [facility] [place] [address] Nurse PractitionerHematology/Oncology01/13/24 Sherron Singh, JUSTIN [address] [facility] [place] [address] Specialty Care CoordinatorHematology/Oncology01/13/24Team MemberRelationship SpecialtyStart DateEnd Date Lesa Estrella DO PCP - GeneralInternal Medicine01/16/12 Eugene Chaparro MD [address] [facility] [place] [address] PhysicianHematology/Oncology01/13/24 Suzanne Grajeda MD [address] [facility] [place] [address] PhysicianRadiation Oncology01/13/24 Ashlyn Sibley, FINISHER POLISHER.STITCHER SPECIAL MACHINE [address] [facility] [place] [address] Nurse PractitionerHematology/Oncology01/13/24 Sherron Singh, JUSTIN [address] [facility] [place] [address] Specialty Care CoordinatorHematology/Oncology01/13/24Team MemberRelationship SpecialtyStart DateEnd Date Lesa Estrella DO PCP - GeneralInternal Medicine01/16/12 Eugene Chaparro MD [address] [place] [address] PhysicianHematology/Oncology01/13/24 Suzanne Grajeda MD [address] [place] [address] PhysicianRadiation Oncology01/13/24 Ashlyn Sibley APRN.STITCHER SPECIAL MACHINE [address] [place] [address] Nurse PractitionerHematology/Oncology01/13/24 Sherron Singh, JUSTIN [address] [facility] [place] [address] Specialty Care CoordinatorHematology/Oncology01/13/24Team MemberRelationship SpecialtyStart DateEnd Date Lesa Estrella DO PCP - GeneralInternal Medicine01/16/12 Eugene Chaparro MD [address] [facility] [place] [place] [address] PhysicianHematology/Oncology01/13/24 Suzanne Grajeda MD [address] [facility] [place] [address] PhysicianRadiation Oncology01/13/24 Ashlyn Sibley, FINISHER POLISHER.STITCHER SPECIAL MACHINE [address] [facility] [place] [place] [address] Nurse PractitionerHematology/Oncology01/13/24 Sherron Singh, JUSTIN [address] [place] [address] Specialty Care CoordinatorHematology/Oncology01/13/24Team MemberRelationship SpecialtyStart DateEnd Date Lesa Estrella DO PCP - GeneralInternal Medicine01/16/12 Eugene Chaparro MD [address] [facility] [place] [address] PhysicianHematology/Oncology01/13/24 Suzanne Grajeda MD [address] [facility] [place] [address] PhysicianRadiation Oncology01/13/24 Ashlyn Sibley, FINISHER POLISHER.STITCHER SPECIAL MACHINE [address] [facility] [place] [address] Nurse PractitionerHematology/Oncology01/13/24 Sherron Singh, JUSTIN [address] [place] [address] Specialty Care CoordinatorHematology/Oncology01/13/24Team MemberRelationship SpecialtyStart DateEnd Date Lesa Estrella DO PCP - GeneralInternal Medicine01/16/12 Eugene Chaparro MD [address] [place] [address] [place] [address] PhysicianHematology/Oncology01/13/24 Suzanne Grajeda MD [address] [place] [address] [place] [address] PhysicianRadiation Oncology01/13/24 Ashlyn Sibley APRN.STITCHER SPECIAL MACHINE [address] [place] [address] [place] [address] Nurse PractitionerHematology/Oncology01/13/24 Sherron Singh, JUSTIN [address] [place] [address] [place] [address] Specialty Care CoordinatorHematology/Oncology01/13/24 Team Status: Inactive Member Role Status Dates Lesa Estrella DO Attending Provider Active Sta rt: November 07, 2023 End: November 07, 2023 Team Status: Active Member Role Status Senthil Estrella DO Primary Care Provide r, Attending Provider Active Start: December 14, 2023 Team Status: Active Member Role Status Dates Lesa Estrella DO Primary Care Provide r, Attending Provider Active Start: December 17, 2023 Team MemberRelationshipSpecialtyStart DateEnd Date Lesa Estrella DO PCP - GeneralInternal Medicine01/16/12 Eugene Chaparro MD [address] [place] [address] [place] [address] PhysicianHematology/Oncology01/13/24 Suzanne Grajeda MD [address] [place] [address] [place] [address] PhysicianRadiation Oncology01/13/24 Ashlyn Sibley, FINISHER POLISHER.STITCHER SPECIAL MACHINE [address] [place] [address] Nurse PractitionerHematology/Oncology01/13/24 Sherron Singh, JUSTIN [address] [place] [address] Specialty Care CoordinatorHematology/Oncology01/13/24 Jana Pierre LSW Social Worker02/03/24Team MemberRelationshipSpecialtyStart DateEnd Date Lesa Estrella DO PCP - GeneralInternal Medicine01/16/12 Eugene Chaparro MD [address] [place] [address] PhysicianHematology/Oncology01/13/24 Suzanne Grajeda MD [address] [place] [address] PhysicianRadiation Oncology01/13/24 Ashlyn Sibley, FINISHER POLISHER.STITCHER SPECIAL MACHINE [address] [place] [address] Nurse PractitionerHematology/Oncology01/13/24 Sherron Singh, JUSTIN [address] [place] [address] Specialty Care CoordinatorHematology/Oncology01/13/24Team MemberRelationship SpecialtyStart DateEnd Date Lesa Estrella DO PCP - GeneralInternal Medicine01/16/12 Eugene Chaparro MD [address] [facility] [place] [address] PhysicianHematology/Oncology01/13/24 Suzanne Grajeda MD [address] [facility] [place] [address] PhysicianRadiation Oncology01/13/24 Aslhyn Sibley, FINISHER POLISHER.STITCHER SPECIAL MACHINE [address] [facility] [place] [place] [address] Nurse PractitionerHematology/Oncology01/13/24 Sherron Singh, JUSTIN [address] [place] [address] Specialty Care CoordinatorHematology/Oncology01/13/24 Jana Pierre LSW Social Worker02/03/24Team MemberRelationshipSpecialtyStart DateEnd Date Lesa Estrella DO PCP - GeneralInternal Medicine01/16/12 Eugene Chapraro MD [address] [facility] [place] [address] PhysicianHematology/Oncology01/13/24 Suzanne Grajeda MD [address] [place] [address] PhysicianRadiation Oncology01/13/24 Ashlyn Sibley, FINISHER POLISHER.STITCHER SPECIAL MACHINE [address] [facility] [place] [address] Nurse PractitionerHematology/Oncology01/13/24 Sherron Singh, JUSTIN [address] [facility] [place] [address] Specialty Care CoordinatorHematology/Oncology01/13/24 Jana Pierre LSW Social Worker02/03/24Team MemberRelationshipSpecialtyStart DateEnd Date Lesa Estrella DO PCP - GeneralInternal Medicine01/16/12 Eugene Chaparro MD [address] [place] [address] PhysicianHematology/Oncology01/13/24 Suzanne Grajeda MD [address] [place] [address] PhysicianRadiation Oncology01/13/24 Ashlyn Sibley APRN.STITCHER SPECIAL MACHINE [address] [place] [address] Nurse PractitionerHematology/Oncology01/13/24 Sherron Singh, JUSTIN [address] [place] [address] Specialty Care CoordinatorHematology/Oncology01/13/24 Jana Pierre LSW Social Worker02/03/24Team MemberRelationshipSpecialtyStart DateEnd Date Lesa Estrella DO PCP - GeneralInternal Medicine01/16/12 Eugene Chaparro MD [address] [place] [address] PhysicianHematology/Oncology01/13/24 Suzanne Grajeda MD [address] [place] [address] PhysicianRadiation Oncology01/13/24 Ashlyn Sibley, FINISHER POLISHER.STITCHER SPECIAL MACHINE [address] [place] [address] Nurse PractitionerHematology/Oncology01/13/24 Sherron Singh, JUSTIN [address] [place] [address] Specialty Care CoordinatorHematology/Oncology01/13/24 Jana Pierre, INDU Social Worker02/03/24Team MemberRelationshipSpecialtyStart DateEnd Date Lesa Estrella, PCP - GeneralInternal Medicine01/16/12 Eugene Chaparro MD [address] [place] [address] PhysicianHematology/Oncology01/13/24 Suzanne Grajeda MD [address] [place] [address] PhysicianRadiation Oncology01/13/24 Ashlyn Sibley, FINISHER POLISHER.STITCHER SPECIAL MACHINE [address] [place] [address] [place] [address] Nurse PractitionerHematology/Oncology01/13/24 Sherron Singh RN [address] [place] [address] Specialty Care CoordinatorHematology/Oncology01/13/24 Jana Pierre, INDU Social Worker02/03/24Team MemberRelationshipSpecialtyStart DateEnd Date Lesa Estrella DO PCP - GeneralInternal Medicine01/16/12 Eugene Chaparro MD [address] [place] [address] PhysicianHematology/Oncology01/13/24 Suzanne Grajeda MD [address] [place] [address] PhysicianRadiation Oncology01/13/24 Ashlyn Sibley, FINISHER POLISHER.STITCHER SPECIAL MACHINE [address] [place] [address] Nurse PractitionerHematology/Oncology01/13/24 Sherron Singh, JUSTIN [address] [place] [address] Specialty Care CoordinatorHematology/Oncology01/13/24 Jana Pierre LSW Social Worker02/03/24Team MemberRelationshipSpecialtyStart DateEnd Date Lesa Estrella DO PCP - GeneralInternal Medicine01/16/12 Eugene Chaparro MD [address] [facility] [place] [address] PhysicianHematology/Oncology01/13/24 Suzanne Grajeda MD [address] [place] [address] PhysicianRadiation Oncology01/13/24 Ashlyn Sibley, FINISHER POLISHER.STITCHER SPECIAL MACHINE [address] [place] [address] Nurse PractitionerHematology/Oncology01/13/24 Sherron Singh, JUSTIN [address] [facility] [place] [address] Specialty Care CoordinatorHematology/Oncology01/13/24 Jana Pierre LSW Social Worker02/03/24Team MemberRelationshipSpecialtyStart DateEnd Date Lesa Estrella DO PCP - GeneralInternal Medicine01/16/12 Eugene Chaparro MD [address] [facility] [place] [address] PhysicianHematology/Oncology01/13/24 Suzanne Grajeda MD [address] [facility] [place] [address] PhysicianRadiation Oncology01/13/24 Ashlyn Sibley, MIGUEL.STITCHER SPECIAL MACHINE [address] [facility] [place] [address] Nurse PractitionerHematology/Oncology01/13/24 Sherron Singh, JUSTIN [address] [facility] [place] [address] Specialty Care CoordinatorHematology/Oncology01/13/24 Jana Pierre LSW Social Worker02/03/24Team MemberRelationshipSpecialtyStart DateEnd Date Lesa Estrella DO PCP - GeneralInternal Medicine01/16/12 Eugene Chaparro MD [address] [facility] [place] [address] PhysicianHematology/Oncology01/13/24 Suzanne Grajeda MD [address] [place] [address] [place] [address] PhysicianRadiation Oncology01/13/24 Ashlyn Sibley, FINISHER POLISHER.STITCHER SPECIAL MACHINE [address] [place] [address] [place] [address] Nurse PractitionerHematology/Oncology01/13/24 Sherron Singh, JUSTIN [address] [place] [address] Specialty Care CoordinatorHematology/Oncology01/13/24 Jana Pierre LSW Social Worker02/03/24Team MemberRelationshipSpecialtyStart DateEnd Date Lesa Estrella DO PCP - GeneralInternal Medicine01/16/12 Eugene Chaparro MD [address] [place] [address] [place] [address] PhysicianHematology/Oncology01/13/24 Suzanne Grajeda MD [address] [place] [address] [place] [address] PhysicianRadiation Oncology01/13/24 Ashlyn Sibley, FINISHER POLISHER.STITCHER SPECIAL MACHINE [address] [place] [address] [place] [address] Nurse PractitionerHematology/Oncology01/13/24 Sherron Singh, JUSTIN [address] [place] [address] Specialty Care CoordinatorHematology/Oncology01/13/24 Jana Pierre LSW Social Worker02/03/24Team MemberRelationshipSpecialtyStart DateEnd Date Lesa Estrella DO PCP - GeneralInternal Medicine01/16/12 Eugene Chaparro MD [address] [facility] [place] [address] PhysicianHematology/Oncology01/13/24 Suzanne Grajeda MD [address] [facility] [place] [address] PhysicianRadiation Oncology01/13/24 Ashlyn Sibley, FINISHER POLISHER.STITCHER SPECIAL MACHINE [address] [facility] [place] [address] Nurse PractitionerHematology/Oncology01/13/24 Sherron Singh, JUSTIN [address] [facility] [place] [address] Specialty Care CoordinatorHematology/Oncology01/13/24 Jana Pierre LSW Social Worker02/03/24Team MemberRelationshipSpecialtyStart DateEnd Date Lesa Estrella DO PCP - GeneralInternal Medicine01/16/12 Eugene Chaparro MD [address] [facility] [place] [address] PhysicianHematology/Oncology01/13/24 Suzanne Grajeda MD [address] [facility] [place] [address] PhysicianRadiation Oncology01/13/24 Ashlyn Sibley, MIGUEL.STITCHER SPECIAL MACHINE [address] [facility] [place] [address] Nurse PractitionerHematology/Oncology01/13/24 Sherron Singh RN [address] [facility] [place] [address] Specialty Care CoordinatorHematology/Oncology01/13/24 Jana Pierre, [facility] Social Worker02/03/24Team MemberRelationshipSpecialtyStart DateEnd Date Lesa Estrella DO PCP - GeneralInternal Medicine01/16/12 Eugene Chaparro MD [address] [facility] [place] [address] PhysicianHematology/Oncology01/13/24 Suzanne Grajeda MD [address] [facility] [address] [place] PhysicianRadiation Oncology01/13/24 Ashlyn Sibley APRN.STITCHER SPECIAL MACHINE [address] [facility] [place] [address] Nurse PractitionerHematology/Oncology01/13/24 Sherron Singh, JUSTIN [address] [facility] [place] [address] Specialty Care CoordinatorHematology/Oncology01/13/24 Jana Pierre [facility] Social Worker02/03/24Team MemberRelationshipSpecialtyStart DateEnd Date Lesa Estrella DO PCP - GeneralInternal Medicine01/16/12 Eugene Chaparro MD [address] [facility] [place] [address] PhysicianHematology/Oncology01/13/24 Suzanne Grajeda MD [address] [place] [address] PhysicianRadiation Oncology01/13/24 Ashlyn Sibley, FINISHER POLISHER.STITCHER SPECIAL MACHINE [address] [place] [address] Nurse PractitionerHematology/Oncology01/13/24 Sherron Singh, JUSTIN [address] [place] [address] Specialty Care CoordinatorHematology/Oncology01/13/24 Jana Pierre LSW Social Worker02/03/24Team MemberRelationshipSpecialtyStart DateEnd Date Lesa Estrella DO PCP - GeneralInternal Medicine01/16/12 Eugene Chaparro MD [address] [place] [address] PhysicianHematology/Oncology01/13/24 Suzanne Grajeda MD [address] [place] [address] PhysicianRadiation Oncology01/13/24 Ashlyn Sibley, FINISHER POLISHER.STITCHER SPECIAL MACHINE [address] [place] [address] Nurse PractitionerHematology/Oncology01/13/24 Sherron Singh, JUSTIN [address] [place] [address] Specialty Care CoordinatorHematology/Oncology01/13/24 Jana Pierre LSW Social Worker02/03/24Team MemberRelationshipSpecialtyStart DateEnd Date Lesa Estrella DO PCP - GeneralInternal Medicine01/16/12 Eugene Chaparro MD [address] [facility] [place] [address] PhysicianHematology/Oncology01/13/24 Suzanne Grajeda MD [address] [facility] [place] [address] PhysicianRadiation Oncology01/13/24 Ashlyn Sibley, FINISHER POLISHER.STITCHER SPECIAL MACHINE [address] [facility] [place] [address] Nurse PractitionerHematology/Oncology01/13/24 Sherron Singh, JUSTIN [address] [facility] [place] [address] Specialty Care CoordinatorHematology/Oncology01/13/24 Jana Pierre LSW Social Worker02/03/24Team MemberRelationshipSpecialtyStart DateEnd Date Lesa Estrella DO PCP - GeneralInternal Medicine01/16/12 Eugene Chaparro MD [address] [facility] [place] [address] PhysicianHematology/Oncology01/13/24 Suzanne Grajeda MD [address] [facility] [place] [address] PhysicianRadiation Oncology01/13/24 Ashlyn Sibley, FINISHER POLISHER.STITCHER SPECIAL MACHINE [address] [place] [address] Nurse PractitionerHematology/Oncology01/13/24 Sherron Singh RN [address] [facility] [place] [address] Specialty Care CoordinatorHematology/Oncology01/13/24 Jana Pierre LSW Social Worker02/03/24Team MemberRelationshipSpecialtyStart DateEnd Date Lesa Estrella DO PCP - GeneralInternal Medicine01/16/12 Eugene Chaparro MD [address] [facility] [place] [address] PhysicianHematology/Oncology01/13/24 Suzanne Grajeda MD [address] [facility] [place] [address] PhysicianRadiation Oncology01/13/24 Ashlyn Sibley APRN.STITCHER SPECIAL MACHINE [address] [facility] [place] [address] Nurse PractitionerHematology/Oncology01/13/24 Sherron Singh RN [address] [facility] [place] [address] Specialty Care CoordinatorHematology/Oncology01/13/24 Jana Pierre LSW Social Worker02/03/24Team MemberRelationshipSpecialtyStart DateEnd Date Lesa Estrella DO PCP - GeneralInternal Medicine01/16/12 Eugene Chaparro MD [address] [facility] [place] [address] PhysicianHematology/Oncology01/13/24 Suzanne Grajeda MD [address] [place] [address] PhysicianRadiation Oncology01/13/24 Ashlyn Sibley, FINISHER POLISHER.STITCHER SPECIAL MACHINE [address] [place] [address] Nurse PractitionerHematology/Oncology01/13/24 Sherron Singh, JUSTIN [address] [place] [address] Specialty Care CoordinatorHematology/Oncology01/13/24 Jana Pierre LSW Social Worker02/03/24Team MemberRelationshipSpecialtyStart DateEnd Date Lesa Estrella DO PCP - GeneralInternal Medicine01/16/12 Eugene Chaparro MD [address] [place] [address] PhysicianHematology/Oncology01/13/24 Suzanne Grajeda MD [address] [place] [address] PhysicianRadiation Oncology01/13/24 Ashlyn Sibley, FINISHER POLISHER.STITCHER SPECIAL MACHINE [address] [place] [address] Nurse PractitionerHematology/Oncology01/13/24 Sherron Singh, JUSTIN [address] [place] [address] Specialty Care CoordinatorHematology/Oncology01/13/24 Jana Pierre LSW Social Worker02/03/24Team MemberRelationshipSpecialtyStart DateEnd Date Lesa Estrella DO PCP - GeneralInternal Medicine01/16/12 Eugene Chaparro MD [address] [place] [address] PhysicianHematology/Oncology01/13/24 Suzanne Grajeda MD [address] [place] [address] PhysicianRadiation Oncology01/13/24 Ashlyn Sibley, FINISHER POLISHER.STITCHER SPECIAL MACHINE [address] [facility] [place] [address] Nurse PractitionerHematology/Oncology01/13/24 Sherron Singh, JUSTIN [address] [facility] [place] [address] Specialty Care CoordinatorHematology/Oncology01/13/24 Jana Pierre [employer] Social Worker02/03/24Team MemberRelationshipSpecialtyStart DateEnd Date Lesa Estrella DO PCP - GeneralInternal Medicine01/16/12 Eugene Chaparro MD [address] [facility] [place] [address] PhysicianHematology/Oncology01/13/24 Suzanne Grajeda MD [address] [place] [address] PhysicianRadiation Oncology01/13/24 Ashlyn Sibley, FINISHER POLISHER.STITCHER SPECIAL MACHINE [address] [facility] [place] [address] Nurse PractitionerHematology/Oncology01/13/24 Sherron Singh, JUSTIN [address] [facility] [place] [address] Specialty Care CoordinatorHematology/Oncology01/13/24 Jana Pierre LSW Social Worker02/03/24Team MemberRelationshipSpecialtyStart DateEnd Date Lesa Estrella, PCP - GeneralInternal Medicine01/16/12 Eugene Chaparro MD [address] [facility] [place] [address] PhysicianHematology/Oncology01/13/24 Suzanne Grajeda MD [address] [facility] [place] [address] PhysicianRadiation Oncology01/13/24 Ashlyn Sibley, FINISHER POLISHER.STITCHER SPECIAL MACHINE [address] [facility] [place] [place] [address] Nurse PractitionerHematology/Oncology01/13/24 Sherron Singh, JUSTIN [address] [facility] [place] [address] Specialty Care CoordinatorHematology/Oncology01/13/24 Jana Pierre LSW Social Worker02/03/24Team MemberRelationshipSpecialtyStart DateEnd Date Lesa Estrella DO PCP - GeneralInternal Medicine01/16/12 Eugene Chaparro MD [address] [place] [address] PhysicianHematology/Oncology01/13/24 Suzanne Grajeda MD [address] [place] [address] PhysicianRadiation Oncology01/13/24 Ashlyn Sibley, FINISHER POLISHER.STITCHER SPECIAL MACHINE [address] [place] [address] Nurse PractitionerHematology/Oncology01/13/24 Sherron Singh, JUSTIN [address] [place] [address] Specialty Care CoordinatorHematology/Oncology01/13/24 Jana Pierre LSW Social Worker02/03/24Team MemberRelationshipSpecialtyStart DateEnd Date Lesa Estrella DO PCP - GeneralInternal Medicine01/16/12 Eugene Chaparro MD [address] [place] [address] [place] [address] PhysicianHematology/Oncology01/13/24 Suzanne Grajeda MD [address] [place] [address] [place] [address] PhysicianRadiation Oncology01/13/24 Ashlyn Sibley, FINISHER POLISHER.STITCHER SPECIAL MACHINE [address] [place] [address] Nurse PractitionerHematology/Oncology01/13/24 Sherron Singh, JUSTIN [address] [place] [address] Specialty Care CoordinatorHematology/Oncology01/13/24 Jana Pierre, INDU Social Worker02/03/24Team MemberRelationshipSpecialtyStart DateEnd Date Lesa Estrella DO PCP - GeneralInternal Medicine01/16/12 Eugene Chaparro MD [address] [place] [address] [place] [address] PhysicianHematology/Oncology01/13/24 Suzanne Grajeda MD [address] [place] [address] [place] [address] PhysicianRadiation Oncology01/13/24 Ashlyn Sibley APRN.[facility] [address] [place] [address] [place] [address] Nurse PractitionerHematology/Oncology01/13/24 Sherron Singh, JUSTIN [address] [place] [address] Specialty Care CoordinatorHematology/Oncology01/13/24 Jana Pierre LSW Social Worker02/03/24Team MemberRelationshipSpecialtyStart DateEnd Date Lesa Estrella DO PCP - GeneralInternal Medicine01/16/12Team MemberRelationshipSpecialtyStart Date End Date Lesa Estrella DO PCP - GeneralInternal Medicine01/16/12Team MemberRelationshipSpecialtyStart Date End Date Lesa Estrella DO PCP - GeneralInternal Medicine01/16/12 Eugene Chaparro MD [address] [place] [address] PhysicianHematology/Oncology01/13/24 Suzanne Grajeda MD [address] [place] [address] PhysicianRadiation Oncology01/13/24 Ashlyn Sibley, FINISHER POLISHER.STITCHER SPECIAL MACHINE [address] [place] [address] Nurse PractitionerHematology/Oncology01/13/24 Sherron Singh, JUSTIN [address] [place] [address] Specialty Care CoordinatorHematology/Oncology01/13/24 Jana Pierre LSW Social Worker02/03/24Team MemberRelationshipSpecialtyStart DateEnd Date Lesa Estrella DO PCP - GeneralInternal Medicine01/16/12 Eugene Chaparro MD [address] [place] [address] PhysicianHematology/Oncology01/13/24 Suzanne Grajeda MD [address] [place] [address] PhysicianRadiation Oncology01/13/24 Ashlyn Sibley, FINISHER POLISHER.STITCHER SPECIAL MACHINE [address] [place] [address] Nurse PractitionerHematology/Oncology01/13/24 Sherron Singh, JUSTIN [address] [place] [address] Specialty Care CoordinatorHematology/Oncology01/13/24 Jana Pierre LSW Social Worker02/03/24Team MemberRelationshipSpecialtyStart DateEnd Date Lesa Estrella DO PCP - GeneralInternal Medicine01/16/12 Eugene Chaparro MD [address] [place] [address] [place] [address] PhysicianHematology/Oncology01/13/24 Suzanne Grajeda MD [address] [place] [address] [place] [address] PhysicianRadiation Oncology01/13/24 Ashlyn Sibley APRN.STITCHER SPECIAL MACHINE [address] [place] [address] [place] [address] Nurse PractitionerHematology/Oncology01/13/24 Sherron Singh, JUSTIN [address] [place] [address] Specialty Care CoordinatorHematology/Oncology01/13/24 Jana Pierre LSW Social Worker02/03/24 Team Status: Active Member Role Status Dates [...] Active Start: September 30, 2024 Eugene Chaparro MDAttending ProviderActiveStart: September 30, 2024 Team MemberRelationshipSpecialtyStart DateEnd Date Lesa Estrella DO PCP - GeneralInternal Medicine01/16/12 Eugene Chaparro MD [address] [place] [address] [place] [address] PhysicianHematology/Oncology01/13/24 Suzanne Grajeda MD [address] [place] [address] [place] [address] PhysicianRadiation Oncology01/13/24 Ashlny Sibley APRN.STITCHER SPECIAL MACHINE [address] [place] [address] [place] [address] Nurse PractitionerHematology/Oncology01/13/24 Sherron Singh, JUSTIN [address] [place] [address] [place] [address] Specialty Care CoordinatorHematology/Oncology01/13/24 Jana Pierre LSW Social Worker02/03/24Team MemberRelationshipSpecialtyStart DateEnd Date Lesa Estrella DO [address] [place] [address] PCP - GeneralInternal Medicine03/16/25 Team Status: Active Member Role Status Dates Lesa Estrella DO Primary Care Provider Active Start: January 18, 2025 Connie Tompkins ProviderActiveStart: January 18, 2025 Team Status: Inactive Member Role Status Dates Lesa Estrella DO Primary Care Provider Active Start: March 16, 2025 End: March 16, 2025Esthela Coleman ProviderActiveStart: March 16, 2025 End: March 16, 2025Team MemberRelationshipSpecialtyStart DateEnd Date Lesa Estrella DO [address] [place] [address] PCP - GeneralInternal Medicine03/16/25 Team Status: Inactive Member Role Status Dates Lesa Estrella DO Primary Care Provide r, Attending Provider Active Start: March 23, 2025 End: March 23, 2025Team MemberRelationshipSpecialtyStart DateEnd Date Lesa Estrella DO PCP - GeneralInternal Medicine01/16/12 Eugene Chaparro MD [address] [place] [address] PhysicianHematology/Oncology01/13/24 Suzanne Grajeda MD [address] [place] [address] PhysicianRadiation Oncology01/13/24 Ashlyn Sibley, FINISHER POLISHER.STITCHER SPECIAL MACHINE [address] [facility] [place] [address] Nurse PractitionerHematology/Oncology01/13/24 Jana Pierre LSW Social Worker02/03/24Team MemberRelationshipSpecialtyStart DateEnd Date Lesa Estrella DO PCP - GeneralInternal Medicine01/16/12 Eugene Chaparro MD [address] [place] [address] PhysicianHematology/Oncology01/13/24 Suzanne Grajeda MD [address] [place] [address] PhysicianRadiation Oncology01/13/24 Ashlyn Sibley, FINISHER POLISHER.STITCHER SPECIAL MACHINE [address] [place] [address] Nurse PractitionerHematology/Oncology01/13/24 Jana Pierre LSW Social Worker02/03/24Team MemberRelationshipSpecialtyStart DateEnd Date Lesa Estrella DO PCP - GeneralInternal Medicine01/16/12 Eugene Chaparro MD [address] [place] [address] PhysicianHematology/Oncology01/13/24 Suzanne Grajeda MD [address] [place] [address] PhysicianRadiation Oncology01/13/24 Ashlyn Sibley APRN.STITCHER SPECIAL MACHINE [address] [place] [address] Nurse PractitionerHematology/Oncology01/13/24 Jana Pierre LSW Social Worker02/03/24Team MemberRelationshipSpecialtyStart DateEnd Date Lesa Estrella DO [address] [place] [address] PCP - GeneralInternal Medicine07/16/25Team MemberRelationshipSpecialtyStart Date End Date Lesa Estrella DO [address] [place] [address] PCP - GeneralInternal Medicine07/16/25 REASON FOR VISIT (unrecogniz ed section and content) ReasonCommentsToe ProblemB/l 1st toes turning upReasonCommentsFollow-up2 weeks follow up Atherosclerosis of [place] coronary artery, unspecified whether angina present, unspecified whether [place] or transplanted heartSpecialtyDiagnoses / ProceduresReferred By ContactReferred To ContactCardiology Diagnoses Localized edema Procedures Follow Up In Cardiology Ivan Theodora K, FINISHER POLISHER-STITCHER SPECIAL MACHINE [address] [facility] [address], [place] [id number] Phone: tel: fax: Referral IDStatusReasonStart DateExpiration DateVisits RequestedVisits [id number]/[id number]/[id number] Exam1 year patient request sooner OV leg swellingSpecialtyDiagnoses / ProceduresReferred By ContactReferred To ContactCardiology Diagnoses Atherosclerosis of [place] coronary artery, unspecified whether angina present, unspecified whether [place] or transplanted heart Procedures Follow Up In Cardiology George Morgan, [address] [facility] [address], [place] [id number] Phone: tel: fax: George Morgan, DO [address] [facility] [address], [place] [id number] Phone: tel: fax: Referral IDStatusReasonBirch River DateExpiration DateVisits RequestedVisits [id number]/31/[id number] CT SpecialtyDiagnoses / ProceduresReferred By ContactReferred To ContactCT IMAGING Diagnoses Malignant neoplasm of urinary bladder, unspecified site (HCC) Procedures CT ABD/PEL W IVCON CT ABD & PELVIS W/CONTRAST Eugene Chaparro MD [address] [place] [address] [place] [address] Phone: tel: fax: CT IMAGING [place] [address] Referral IDStatusReasonStart DateExpiration DateVisits RequestedVisits [id number] Auto-Generated Referral [id number]ymyKwakbsodBdat CoordinationUrology QuestionReasonCommentsBladder Cancer3 month follow upReasonCommentsRadiology NM SpecialtyDiagnoses / ProceduresReferred By ContactReferred To ContactMOLECULAR & FUNCTIONAL IMAGING Diagnoses Malignant neoplasm of urinary bladder, unspecified site (HCC) Procedures NM PET/CT SKULL-THIGH SUBSEQUENT PET IMAGING CT ATTENUATION SKULL BASE MID-THIGH Eugene Chaparro MD [address] [place] [address] [place] [address] Molecular & Functional Imaging [address] [place] [address] Referral IDStatusReasonStart DateExpiration DateVisits RequestedVisits [id number] Auto-Generated Referral /[id number] CoordinationCT ResultsReasonComments Radiology NMSpecialtyDiagnoses / ProceduresReferred By ContactReferred To ContactCT IMAGING Diagnoses 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) Procedures CT CHEST WO IVCON DIAGNOSTIC COMPUTED TOMOGRAPHY THORAX W/O Suzanne Aldana MD [address] [place] [address] [place] [address] Ct Imaging [place] [address] Referral IDStatusReasonBirch River DateExpiration DateVisits RequestedVisits [id number] Auto-Generated Referral /[id number] CancerFollow upReasonCommentsCare CoordinationUrine Culture ResultsReasonCommentsEdemaDysuriaDiarrheaReason CommentsDiarrheapolyuriaEdemaReasonCommentsPatient QuestionReasonCommentsCare CoordinationCatheter SizingReasonCommentsCare CoordinationUrinary SuppliesReason CommentsOrdersReasonCommentsCare CoordinationLab Results; IV HydrationReason CommentsRadiotherapy On-treatment VisitReasonCommentsPatient UpdateReason CommentsBladder CancerOTVReasonCommentsCare [id number] Post Treatment Call SpecialtyDiagnoses / ProceduresReferred By ContactReferred To Contact Diagnoses 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) Eugene Chaparro MD [address] [place] [address] [place] [address] Maninder Treat Shila Mc [address] [place] [address] Referral IDStatusReasonStart DateExpiration DateVisits RequestedVisits [id number]/17/20246/[id number] InvestigationReasonCommentsCare CoordinationAntiemeticsReasonOnset DateComments Simulation Request Form4ReasonCommentsFuture AppointmentReasonComments Patient EducationReasonCommentsConsultReasonCommentsBladder CancerNew patient consultSpecialtyDiagnoses / ProceduresReferred By ContactReferred To Contact Oncology Diagnoses 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) Procedures CONSULT TO ONCOLOGY OFFICE/OUTPATIENT [facility] 60 MINUTES Suzanne Grajeda MD [address] [place] [address] [place] [address] Referral IDStatusReasonStart DateExpiration DateVisits RequestedVisits [id number] PCP Requested Referral /[id number] ReasonCommentsFollow-up6 months4 month Follow upGI REFERRAL CONSULT SpecialtyDiagnoses / ProceduresReferred By ContactReferred To Contact Diagnoses [facility] [address] [place] [address] [facility] [address] [place] [address] Referral IDStatusReasonStmcgregor DateExpiration DateVisits RequestedVisits [id number] IS HERE AT THE REQUEST OF DR. ESTRELLA HX OF BOWEL RESECTION. DR GATES REVIEW REFER AND SAID HEWANTED TO SEE PT IN OFFICE AND GO OVER HISTORY1 month Follow upGI Question2 Week Check Upfinish medicationTBH ER FOLLOW UPPossible Medication ChangeAnkles, Knees, BPWants in SaturdayLab ResultsWellnesspossible shinglesdiarrheafootRed Spotsrefill ReasonCommentsEstablished Patient Follow-UpReoccuring bowel blockage prescription6 MONTH FOLLOW UP Source Comments (unrecognize d section and content) In the event this informatio n is protected by the Federal Confidentiality of Alcohol and Drug Abuse Patient Records regulations: The Federal rules restrict any use of the information to criminally investigate or prosecute any alcohol or drug abuse patient.[facility] HospitalIn the event this information is protected by the Federal Confidentiality of Alcohol and Drug Abuse Patient Records regulations: The Federal rules restrict any use of the information to criminally investigate or prosecute any alcohol or drug abuse patient.[facility] HospitalIn the event this information is protected by the Federal Confidentiality of Alcohol and Drug Abuse Patient Records regulations: The Federal rules restrict any use of the information to criminally investigate or prosecute any alcohol or drug abuse patient.[facility] HospitalIn the event this information is protected by the Federal Confidentiality of Alcohol and Drug Abuse Patient Records regulations: The Federal rules restrict any use of the information to criminally investigate or prosecute any alcohol or drug abuse patient.[facility] ClinicIn the event this information is protected by the Federal Confidentiality of Alcohol and Drug Abuse Patient Records regulations: The Federal rules restrict any use of the information to criminally investigate or prosecute any alcohol or drug abuse patient.[facility] HospitalIn the event this information is protected by the Federal Confidentiality of Alcohol and Drug Abuse Patient Records regulations: The Federal rules restrict any use of the information to criminally investigate or prosecute any alcohol or drug abuse patient.[facility] HospitalIn the event this information is protected by the Federal Confidentiality of Alcohol and Drug Abuse Patient Records regulations: The Federal rules restrict any use of the information to criminally investigate or prosecute any alcohol or drug abuse patient.[facility] HospitalIn the event this information is protected by the Federal Confidentiality of Alcohol and Drug Abuse Patient Records regulations: The Federal rules restrict any use of the information to criminally investigate or prosecute any alcohol or drug abuse patient.[facility] HospitalIn the event this information is protected by the Federal Confidentiality of Alcohol and Drug Abuse Patient Records regulations: The Federal rules restrict any use of the information to criminally investigate or prosecute any alcohol or drug abuse patient.[facility] HospitalIn the event this information is protected by the Federal Confidentiality of Alcohol and Drug Abuse Patient Records regulations: The Federal rules restrict any use of the information to criminally investigate or prosecute any alcohol or drug abuse patient.[facility] HospitalIn the event this information is protected by the Federal Confidentiality of Alcohol and Drug Abuse Patient Records regulations: The Federal rules restrict any use of the information to criminally investigate or prosecute any alcohol or drug abuse patient.[facility] HospitalIn the event this information is protected by the Federal Confidentiality of Alcohol and Drug Abuse Patient Records regulations: The Federal rules restrict any use of the information to criminally investigate or prosecute any alcohol or drug abuse patient.[facility] HospitalIn the event this information is protected by the Federal Confidentiality of Alcohol and Drug Abuse Patient Records regulations: The Federal rules restrict any use of the information to criminally investigate or prosecute any alcohol or drug abuse patient.[facility] HospitalIn the event this information is protected by the Federal Confidentiality of Alcohol and Drug Abuse Patient Records regulations: The Federal rules restrict any use of the information to criminally investigate or prosecute any alcohol or drug abuse patient.[facility] HospitalIn the event this information is protected by the Federal Confidentiality of Alcohol and Drug Abuse Patient Records regulations: The Federal rules restrict any use of the information to criminally investigate or prosecute any alcohol or drug abuse patient.[facility] HospitalIn the event this information is protected by the Federal Confidentiality of Alcohol and Drug Abuse Patient Records regulations: The Federal rules restrict any use of the information to criminally investigate or prosecute any alcohol or drug abuse patient.[facility] HospitalIn the event this information is protected by the Federal Confidentiality of Alcohol and Drug Abuse Patient Records regulations: The Federal rules restrict any use of the information to criminally investigate or prosecute any alcohol or drug abuse patient.[facility] HospitalIn the event this information is protected by the Federal Confidentiality of Alcohol and Drug Abuse Patient Records regulations: The Federal rules restrict any use of the information to criminally investigate or prosecute any alcohol or drug abuse patient.[facility] HospitalIn the event this information is protected by the Federal Confidentiality of Alcohol and Drug Abuse Patient Records regulations: The Federal rules restrict any use of the information to criminally investigate or prosecute any alcohol or drug abuse patient.[facility] HospitalIn the event this information is protected by the Federal Confidentiality of Alcohol and Drug Abuse Patient Records regulations: The Federal rules restrict any use of the information to criminally investigate or prosecute any alcohol or drug abuse patient.[facility] HospitalIn the event this information is protected by the Federal Confidentiality of Alcohol and Drug Abuse Patient Records regulations: The Federal rules restrict any use of the information to criminally investigate or prosecute any alcohol or drug abuse patient.[facility] HospitalIn the event this information is protected by the Federal Confidentiality of Alcohol and Drug Abuse Patient Records regulations: The Federal rules restrict any use of the information to criminally investigate or prosecute any alcohol or drug abuse patient.[facility] HospitalIn the event this information is protected by the Federal Confidentiality of Alcohol and Drug Abuse Patient Records regulations: The Federal rules restrict any use of the information to criminally investigate or prosecute any alcohol or drug abuse patient.[facility] HospitalIn the event this information is protected by the Federal Confidentiality of Alcohol and Drug Abuse Patient Records regulations: The Federal rules restrict any use of the information to criminally investigate or prosecute any alcohol or drug abuse patient.[facility] HospitalIn the event this information is protected by the Federal Confidentiality of Alcohol and Drug Abuse Patient Records regulations: The Federal rules restrict any use of the information to criminally investigate or prosecute any alcohol or drug abuse patient.[facility] HospitalIn the event this information is protected by the Federal Confidentiality of Alcohol and Drug Abuse Patient Records regulations: The Federal rules restrict any use of the information to criminally investigate or prosecute any alcohol or drug abuse patient.[facility] HospitalIn the event this information is protected by the Federal Confidentiality of Alcohol and Drug Abuse Patient Records regulations: The Federal rules restrict any use of the information to criminally investigate or prosecute any alcohol or drug abuse patient.[facility] HospitalIn the event this information is protected by the Federal Confidentiality of Alcohol and Drug Abuse Patient Records regulations: The Federal rules restrict any use of the information to criminally investigate or prosecute any alcohol or drug abuse patient.[facility] HospitalIn the event this information is protected by the Federal Confidentiality of Alcohol and Drug Abuse Patient Records regulations: The Federal rules restrict any use of the information to criminally investigate or prosecute any alcohol or drug abuse patient.[facility] HospitalIn the event this information is protected by the Federal Confidentiality of Alcohol and Drug Abuse Patient Records regulations: The Federal rules restrict any use of the information to criminally investigate or prosecute any alcohol or drug abuse patient.[facility] HospitalIn the event this information is protected by the Federal Confidentiality of Alcohol and Drug Abuse Patient Records regulations: The Federal rules restrict any use of the information to criminally investigate or prosecute any alcohol or drug abuse patient.[facility] HospitalIn the event this information is protected by the Federal Confidentiality of Alcohol and Drug Abuse Patient Records regulations: The Federal rules restrict any use of the information to criminally investigate or prosecute any alcohol or drug abuse patient.[facility] HospitalIn the event this information is protected by the Federal Confidentiality of Alcohol and Drug Abuse Patient Records regulations: The Federal rules restrict any use of the information to criminally investigate or prosecute any alcohol or drug abuse patient.[facility] HospitalIn the event this information is protected by the Federal Confidentiality of Alcohol and Drug Abuse Patient Records regulations: The Federal rules restrict any use of the information to criminally investigate or prosecute any alcohol or drug abuse patient.[facility] HospitalIn the event this information is protected by the Federal Confidentiality of Alcohol and Drug Abuse Patient Records regulations: The Federal rules restrict any use of the information to criminally investigate or prosecute any alcohol or drug abuse patient.[facility] HospitalIn the event this information is protected by the Federal Confidentiality of Alcohol and Drug Abuse Patient Records regulations: The Federal rules restrict any use of the information to criminally investigate or prosecute any alcohol or drug abuse patient.[facility] HospitalIn the event this information is protected by the Federal Confidentiality of Alcohol and Drug Abuse Patient Records regulations: The Federal rules restrict any use of the information to criminally investigate or prosecute any alcohol or drug abuse patient.[facility] HospitalIn the event this information is protected by the Federal Confidentiality of Alcohol and Drug Abuse Patient Records regulations: The Federal rules restrict any use of the information to criminally investigate or prosecute any alcohol or drug abuse patient.[facility] HospitalIn the event this information is protected by the Federal Confidentiality of Alcohol and Drug Abuse Patient Records regulations: The Federal rules restrict any use of the information to criminally investigate or prosecute any alcohol or drug abuse patient.[facility] HospitalIn the event this information is protected by the Federal Confidentiality of Alcohol and Drug Abuse Patient Records regulations: The Federal rules restrict any use of the information to criminally investigate or prosecute any alcohol or drug abuse patient.[facility] HospitalIn the event this information is protected by the Federal Confidentiality of Alcohol and Drug Abuse Patient Records regulations: The Federal rules restrict any use of the information to criminally investigate or prosecute any alcohol or drug abuse patient.[facility] HospitalIn the event this information is protected by the Federal Confidentiality of Alcohol and Drug Abuse Patient Records regulations: The Federal rules restrict any use of the information to criminally investigate or prosecute any alcohol or drug abuse patient.[facility] HospitalIn the event this information is protected by the Federal Confidentiality of Alcohol and Drug Abuse Patient Records regulations: The Federal rules restrict any use of the information to criminally investigate or prosecute any alcohol or drug abuse patient.[facility] HospitalIn the event this information is protected by the Federal Confidentiality of Alcohol and Drug Abuse Patient Records regulations: The Federal rules restrict any use of the information to criminally investigate or prosecute any alcohol or drug abuse patient.[facility] HospitalIn the event this information is protected by the Federal Confidentiality of Alcohol and Drug Abuse Patient Records regulations: The Federal rules restrict any use of the information to criminally investigate or prosecute any alcohol or drug abuse patient.[facility] HospitalIn the event this information is protected by the Federal Confidentiality of Alcohol and Drug Abuse Patient Records regulations: The Federal rules restrict any use of the information to criminally investigate or prosecute any alcohol or drug abuse patient.[facility] HospitalIn the event this information is protected by the Federal Confidentiality of Alcohol and Drug Abuse Patient Records regulations: The Federal rules restrict any use of the information to criminally investigate or prosecute any alcohol or drug abuse patient.[facility] HospitalIn the event this information is protected by the Federal Confidentiality of Alcohol and Drug Abuse Patient Records regulations: The Federal rules restrict any use of the information to criminally investigate or prosecute any alcohol or drug abuse patient.[facility] HospitalIn the event this information is protected by the Federal Confidentiality of Alcohol and Drug Abuse Patient Records regulations: The Federal rules restrict any use of the information to criminally investigate or prosecute any alcohol or drug abuse patient.[facility] HospitalIn the event this information is protected by the Federal Confidentiality of Alcohol and Drug Abuse Patient Records regulations: The Federal rules restrict any use of the information to criminally investigate or prosecute any alcohol or drug abuse patient.[facility] HospitalIn the event this information is protected by the Federal Confidentiality of Alcohol and Drug Abuse Patient Records regulations: The Federal rules restrict any use of the information to criminally investigate or prosecute any alcohol or drug abuse patient.[facility] HospitalIn the event this information is protected by the Federal Confidentiality of Alcohol and Drug Abuse Patient Records regulations: The Federal rules restrict any use of the information to criminally investigate or prosecute any alcohol or drug abuse patient.[facility] HospitalIn the event this information is protected by the Federal Confidentiality of Alcohol and Drug Abuse Patient Records regulations: The Federal rules restrict any use of the information to criminally investigate or prosecute any alcohol or drug abuse patient.[facility] HospitalIn the event this information is protected by the Federal Confidentiality of Alcohol and Drug Abuse Patient Records regulations: The Federal rules restrict any use of the information to criminally investigate or prosecute any alcohol or drug abuse patient.[facility] ClinicIn the event this information is protected by the Federal Confidentiality of Alcohol and Drug Abuse Patient Records regulations: The Federal rules restrict any use of the information to criminally investigate or prosecute any alcohol or drug abuse patient.[facility] HospitalIn the event this information is protected by the Federal Confidentiality of Alcohol and Drug Abuse Patient Records regulations: The Federal rules restrict any use of the information to criminally investigate or prosecute any alcohol or drug abuse patient.[facility] HospitalIn the event this information is protected by the Federal Confidentiality of Alcohol and Drug Abuse Patient Records regulations: The Federal rules restrict any use of the information to criminally investigate or prosecute any alcohol or drug abuse patient.[facility] HospitalIn the event this information is protected by the Federal Confidentiality of Alcohol and Drug Abuse Patient Records regulations: The Federal rules restrict any use of the information to criminally investigate or prosecute any alcohol or drug abuse patient.[facility] HospitalIn the event this information is protected by the Federal Confidentiality of Alcohol and Drug Abuse Patient Records regulations: The Federal rules restrict any use of the information to criminally investigate or prosecute any alcohol or drug abuse patient.[facility] HospitalIn the event this information is protected by the Federal Confidentiality of Alcohol and Drug Abuse Patient Records regulations: The Federal rules restrict any use of the information to criminally investigate or prosecute any alcohol or drug abuse patient.[facility] HospitalIn the event this information is protected by the Federal Confidentiality of Alcohol and Drug Abuse Patient Records regulations: The Federal rules restrict any use of the information to criminally investigate or prosecute any alcohol or drug abuse patient.[facility] HospitalIn the event this information is protected by the Federal Confidentiality of Alcohol and Drug Abuse Patient Records regulations: The Federal rules restrict any use of the information to criminally investigate or prosecute any alcohol or drug abuse patient.[facility] HospitalIn the event this information is protected by the Federal Confidentiality of Alcohol and Drug Abuse Patient Records regulations: The Federal rules restrict any use of the information to criminally investigate or prosecute any alcohol or drug abuse patient.[facility] HospitalIn the event this information is protected by the Federal Confidentiality of Alcohol and Drug Abuse Patient Records regulations: The Federal rules restrict any use of the information to criminally investigate or prosecute any alcohol or drug abuse patient.[facility] HospitalIn the event this information is protected by the Federal Confidentiality of Alcohol and Drug Abuse Patient Records regulations: The Federal rules restrict any use of the information to criminally investigate or prosecute any alcohol or drug abuse patient.[facility] Scheduled Active and Recently Administ ered Medications (unrecognized section and content) Medication Order// aspirin chewable tablet 81 mg 81 mg, Oral, DAILY, First dose on Leslie 10/10/23 at 1015, Until Discontinued * 1053 (Given - Provider: Cyndi Coley, JUSTIN) carveDILOL (COREG) tablet 6.25 mg 6.25 mg, Oral, EVERY 12 HOURS, First dose on Leslie 10/10/23 at 1045, Until Discontinued * 1053 (Given - Provider: Cyndi Coley, JUSTIN) Clopidogrel (PLAVIX) tablet 75 mg (COMPLETED) 75 mg, Oral, ONCE, 1 dose, On Leslie 10/10/23 at 1045 * 1053 (Given - Provider: Cyndi Coley, JUSTIN) Losartan (COZAAR) tablet 25 mg (COMPLETED) 25 mg, Oral, ONCE, 1 dose, On Leslie 10/10/23 at 1045 * 1053 (Given - Provider: Cyndi Coley, RN) Rosuvastatin (CRESTOR) tablet 40 mg 40 mg, Oral, DAILY, First dose on Leslie 10/10/23 at 1045, Until Discontinued * 1229 (Given - Provider: Cyndi Coley, JUSTIN) Tamsulosin HCl (FLOMAX) capsule 0.4 mg 0.4 mg, Oral, DAILY, First dose on Leslie 10/10/23 at 1045, Until Discontinued, Slow release product. Do not chew or crush * 1053 (Given - Provider: Cyndi Coley, JUSTIN) Medication Order// Acetaminophen (TYLENOL) tablet 650 mg 650 mg, Oral, EVERY 4 HOURS NEEDED, Starting on Leslie 10/10/23 at 0942, Until Leslie 10/10/23 at 1823, Mild Pain, Oral temp > 100.4 F, Maximum dose of acetaminophen is 4000 mg from all sources in 24hours. alum/mag hydrox.-simethicone oral suspension 30 mL 30 mL, Oral, EVERY 6 HOURS NEEDED, Starting on Leslie 10/10/23 at 0942, Until Leslie 10/10/23 at 1823,Indigestion, Per 5 mL is equivalent to: (Alum-Mag Hydroxide 200-225 mg and Simethicone 20 mg) and (Alum-Mag Hydroxide 200-200 mg and Simethicone 20 mg) Goals (unrecognized section and content) Goals may be documented in a n alternate section Inactive Administered Medications - up to 3 most recent administrations Administered Medications (un recognized section and content) Medication OrderMAR ActionAction DateDoseRateSite CISplatin 40.6 mg in NaCl 0.9% 1,090.6 mL (PLATINOL) 40.6 mg (20 mg/m2 2.03 m2 Treatment Plan BSA from Recorded weight), INTRAVENOUS, Administer over 1 Hours, ONCE, 1 dose, On Sat01/20/24 at 1030, EXP: 01/21/2024 1630 RT Hazardous Chemotherapy Drug: Useappropriate PPE. Antineoplastic Vesicant for concentrations greater than 0.4 mg/mL - AntineoplasticIrritant for concentrations less than 0.4 mg/mL. Protect from Light. New Bag/Syringe/Qzvoag3701/20/2024 11:28 AM EDT40.6 mg dexAMETHasone 10 mg in NaCl 0.9% 50 mL (DECADRON) 10 mg, INTRAVENOUS, ONCE, 1 dose, On Sat01/20/24 at 1030, Refrigerate. New Bag/Syringe/Gxnxlx7001/20/2024 10:25 AM EDT10 mg fosaprepitant 150 mg in NaCl 0.9% 250 mL (EMEND) 150 mg, INTRAVENOUS, Administer over 30 Minutes, ONCE, 1 dose, On Sat01/20/24 at 1030, Approximate Total Volume = 280 mL Mix in non-DEHP bag - Refrigerate New Bag/Syringe/Fpsvvk9401/20/2024 10:45 AM WGF202 mg furosemide 40 mg injection (LASIX) 40 mg, INTRAVENOUS, ONCE, 1 dose, On Sat01/20/24 at 1030 Given01/20/2024 1:08 PM EDT40 mg magnesium sulfate 2 g in NaCl 0.9% 1,000 mL INTRAVENOUS, at 999 mL/hr, Administer over 1 Hours, ONCE, 1 dose, On Sat01/20/24 at 1030, EXP: 01/22/2024 1030 RT New Bag/Syringe/Fgfgvi4901/20/2024 12:37 PM [id number] mL/hr NaCl 0.9% iv bolus 500 mL 500 mL, INTRAVENOUS, at 999 mL/hr, Administer over 0.5 Hours, ONCE, 1 dose, On Sat01/20/24 at 1030 New Bag/Syringe/Ltelga8901/20/2024 10:18 AM VJC812 mL999 mL/hr palonosetron 0.25 mg injection (ALOXI) 0.25 mg, INTRAVENOUS, ONCE, 1 dose, On Sat01/20/24 at 1030, Flush IV line with NS prior to and following administration. Given01/20/2024 10:25 AM EDT0.25 mgMedication OrderMAR ActionAction DateDoseRate Site CISplatin 40.6 mg in NaCl 0.9% 1,090.6 mL (PLATINOL) 40.6 mg (20 mg/m2 2.03 m2 Treatment Plan BSA from Recorded weight), INTRAVENOUS, Administer over 1 Hours, ONCE, 1 dose, On Sat01/28/24 at 1030, EXP: 01/29/2024 1620 RT Hazardous Chemotherapy Drug: Useappropriate PPE. Antineoplastic Vesicant for concentrations greater than 0.4 mg/mL - AntineoplasticIrritant for concentrations less than 0.4 mg/mL. Protect from Light. New Bag/Syringe/Fbxcnk8501/28/2024 11:20 AM EDT40.6 mg dexAMETHasone 10 mg in NaCl 0.9% 50 mL (DECADRON) 10 mg, INTRAVENOUS, ONCE, 1 dose, On Sat01/28/24 at 0930, Refrigerate. New Bag/Syringe/Kbvhfd6001/28/2024 10:22 AM EDT10 mg fosaprepitant 150 mg in NaCl 0.9% 250 mL (EMEND) 150 mg, INTRAVENOUS, Administer over 30 Minutes, ONCE, 1 dose, On Sat01/28/24 at 0930, Approximate Total Volume = 280 mL Mix in non-DEHP bag - Refrigerate Bag/Syringe/Coqkxq7601/28/2024 10:38 AM [id number] mg furosemide 40 mg injection (LASIX) 40 mg, INTRAVENOUS, ONCE, 1 dose, On Sat01/28/24 at 1030 Given01/28/2024 12:27 PM EDT40 mg magnesium sulfate 2 g in NaCl 0.9% 1,000 mL INTRAVENOUS, at 999 mL/hr, Administer over 1 Hours, ONCE, 1 dose, On Sat01/28/24 at 1030 New Bag/Syringe/Fnthco7601/28/2024 12:32 PM IRA830 mL/hr NaCl 0.9% iv bolus 500 mL 500 mL, INTRAVENOUS, at 999 mL/hr, Administer over 0.5 Hours, ONCE, 1 dose, On Sat01/28/24 at 0930 New Bag/Syringe/Hgdrez9301/28/2024 9:30 AM AOR548 mL999 mL/hr palonosetron 0.25 mg injection (ALOXI) 0.25 mg, INTRAVENOUS, ONCE, 1 dose, On Sat01/28/24 at 0930, Flush IV line with NS prior to and following administration. Given01/28/2024 10:21 AM EDT0.25 mgMedication OrderMAR ActionAction DateDoseRate Site NaCl 0.9% 1,000 mL INTRAVENOUS, at 999 mL/hr, Administer over 1 Hours, ONCE, 1 dose, On Sat02/05/24 at 1030 New Bag/Syringe/Woznpy0002/05/2024 10:20 AM QCA103 mL/hrMedication OrderMAR Action Action DateDoseRateSite CISplatin 40.6 mg in NaCl 0.9% 1,090.6 mL (PLATINOL) 40.6 mg (20 mg/m2 2.03 m2 Treatment Plan BSA from Recorded weight), INTRAVENOUS, Administer over 1 Hours, ONCE, 1 dose, On Sat02/06/24 at 0930, EXP: 0140 02/08/24 Hazardous Chemotherapy Drug: Use appropriate PPE. Antineoplastic Vesicant for concentrations greater than 0.4 mg/mL - Antineoplastic Irritant for concentrations less than 0.4 mg/mL. Protect from Light. New Bag/Syringe/Ziqwah7902/06/2024 10:44 AM EDT40.6 mg dexAMETHasone 10 mg in NaCl 0.9% 50 mL (DECADRON) 10 mg, INTRAVENOUS, ONCE, 1 dose, On Sat02/06/24 at 0930, Refrigerate. New Bag/Syringe/Tavofj5202/06/2024 9:47 AM EDT10 mg fosaprepitant 150 mg in NaCl 0.9% 250 mL (EMEND) 150 mg, INTRAVENOUS, Administer over 30 Minutes, ONCE, 1 dose, On Sat02/06/24 at 0930, Approximate Total Volume = 280 mL Mix in non-DEHP bag - Refrigerate New Bag/Syringe/Ahyorc7602/06/2024 10:07 AM PEZ352 mg furosemide 10 mg injection (LASIX) 10 mg, INTRAVENOUS, ONCE, 1 dose, On Sat02/06/24 at 0930 Given02/06/2024 1:01 PM EDT10 mg magnesium sulfate iv piggyback in sterile [...] rate of GREATER than 2 grams/hr if necessary:1) Adult and Pediatric Asthma Exacerbations 2) [place] 3) Pediatric BMT and Hematology/Oncology 4) Eclampsia or Preeclampsia New Bag/Syringe/Eknzpy7602/06/2024 12:05 PM EDT2 g50 mL/hr NaCl 0.9% iv bolus 1,000 mL 1,000 mL, INTRAVENOUS, at 999 mL/hr, Administer over 1 Hours, ONCE, 1 dose, On Leslie 02/06/24 at 1000 New Bag/Syringe/Hywxhf4602/06/2024 12:00 PM EDT1,000 mL999 mL/hr NaCl 0.9% iv bolus 500 mL 500 mL, INTRAVENOUS, at 999 mL/hr, Administer over 0.5 Hours, ONCE, 1 dose, On [place] 02/06/24 at 0930 New Bag/Syringe/Fsgzat8302/06/2024 9:20 AM MTD412 mL999 mL/hr palonosetron 0.25 mg injection (ALOXI) 0.25 mg, INTRAVENOUS, ONCE, 1 dose, On [place] 02/06/24 at 0930, Flush IV line with NS prior to and following administration. Given02/06/2024 9:43 AM EDT0.25 mg FOR RECORDS PERTAINING TO PATIENTS WHO [...] BE BASED ON THE PRIMARY CLINICAL RECORDS. [email or web address]. provides no warranty or guarantee of the accuracy or completeness of information in this document.
[2025-09-28 08:02] LABS: Hematocrit 39.2 % (42.0-54.0); Hemoglobin 12.8 g/dL (14.0-18.0); Immature Granulocytes Abs Auto 0.01 10^3/uL (0.00-0.03); Immature Granulocytes Pct Auto 0.2 % (0.0-0.5); Lymphocytes Absolute Auto 1.3 10^3/uL (1.2-3.8); Mean Corpuscular HGB Conc 32.7 g/dL (29.9-35.2); Mean Corpuscular Hemoglobin 30.4 pg (25.9-34.0); Mean Corpuscular Volume 93.1 fL (80.0-94.0); Platelet Count 178 10^3/uL (150-450); Red Blood Count 4.21 10^6/uL (4.70-6.10); White Blood Count 5.5 10^3/uL (4.0-11.0)
[2025-09-28 08:25] LABS: Alanine Aminotransferase 21 U/L (16-63); Albumin Globulin Ratio 0.9; Albumin Level 3.3 g/dL (3.4-5.0); Alkaline Phosphatase 58 U/L (46-116); Anion Gap 12.5; Aspartate Amino Transferase 19 U/L (15-37); Blood Urea Nitrogen 25.0 mg/dL (7.0-18.0); Calcium 8.8 mg/dL (8.5-10.1); Carbon Dioxide 26.1 mmol/L (21.0-32.0); Chloride 108 mmol/L (98-107); Cholesterol 116 mg/dL (<=200); Estimated GFR (African America >60 (>=60 mL/min/1.73m^2); Estimated GFR (Non-African Ame >60 (>=60 mL/min/1.73m^2); Globulin 3.5 g/dL; Glucose 91 mg/dL (74-106); HDL Cholesterol 74 mg/dL (40-60); Potassium 4.6 mmol/L (3.5-5.1); Sodium 142 mmol/L (136-145); Total Protein 6.8 g/dL (6.4-8.2); Triglycerides 40 mg/dL (<=150); VLDL CHOLESTEROL 8.0 mg/dL
== END 2025-09-28 07:33 | disposition home or self-care (01) ==
LOC: LAB 07:37
PROVIDERS: PCP Internal Medicine; Visit Provider Internal Medicine
DX: E78.00 Pure hypercholesterolemia, unspecified (principal); I25.5 Ischemic cardiomyopathy; R53.83 Other fatigue
CPT/HCPCS: 36415; 80053; 80061; 85025